=== PATIENT | female | born 1950 | race Caucasian/White ===

== ENCOUNTER 2016-06-23 11:19 | Emergency (ER) | payer MEDICARE, BC ==
[2016-06-23 12:05] VITALS: RESP 16
[2016-06-23] MEDS ORDERED: IPRATROPIUM-ALBUTEROL 3 ML NEB INHALATION STA (12:50)
--- NOTE | 2016-06-23 13:21 | XR ---
EXAMINATION TYPE: XR chest 2V DATE OF EXAM: 06/23/2016 1:01 PM COMPARISON: 09/21/2013 HISTORY: 65-year-old female with cough and pain TECHNIQUE: AP and lateral views FINDINGS: Heart is mild to moderately enlarged. The patient/ectasia of the thoracic aorta. Mild diffuse interstitial prominence is unchanged. Bilateral healed rib fracture deformities are pres ent. Some focal peripheral right upper and lower lung densities may relate to summation shadow should be reassessed at short interval follow-up. Postsurgical or posttraumatic shortening of the right clavicle. IMPRESSION: 1. Moderate cardiomegaly and chronic appearing changes. 2. Focal densities in the peripheral right upper and lower lung are suspected to relate to superimpos ition shadow. Correlate to exclude infectious infiltrates. Short interval follow-up should be conside red.
--- NOTE | 2016-06-23 13:33 | ED ---
URI HPI - General Chief Complaint: Upper Respiratory Infection Stated Complaint: congestion Time Seen by Provider: 06/23/16 12:43 Source: patient, family, RN notes reviewed Mode of arrival: wheelchair Limitations: no limitations - History of Present Illness Initial Comments: 65-year-old female presents emergency Department chief complaint cough and cold for 4-5 days. Patient states that she has productive cough at times. He states primary she has a clear runny nose. She states she try to call her binding cutter Dr. Lehman and though they had no available appointment. Patient denies fever, chills. Denies any chest pain. Patient states she has no nausea vomiting. She has had some minimal shortness breath with occasional. She states she has not had medication for her nebulizer. Patient states she has been coughing so hard now she has some rib pain area and - Related Data Home Medications Medication Instructions Recorded Confirmed Aspirin 81 mg PO DAILY 12/01/14 12/03/15 Atorvastatin Calcium [Lipitor] 20 mg PO HS 12/01/14 12/03/15 Cholecalciferol [Vitamin D3] 1,000 unit PO DAILY 12/01/14 12/03/15 Citracal 2 tab PO DAILY@0700 12/01/14 12/03/15 Gabapentin [Gabapentin] 200 mg PO HS 12/01/14 12/03/15 Hydrocodone/Acetaminophen 1 tab PO Q4H PRN 12/01/14 12/03/15 [Hydrocodon-Acetaminophn 10-325] Hydrocortisone [Cortef] 10 mg PO DAILY@1200 12/01/14 12/03/15 Lisinopril [Prinivil] 20 mg PO BID 12/01/14 12/03/15 Meclizine [Antivert] 25 mg PO TID PRN 12/01/14 12/03/15 Metoprolol Tartrate [Metoprolol 150 mg PO HS 12/01/14 12/03/15 Tartrate] Promethazine [Phenergan] 25 mg PO Q6HR PRN 12/01/14 12/03/15 Ascorbic Acid [Vitamin C] 500 mg PO DAILY 10/12/15 12/03/15 B Complex-Vit C-Vit E-Zinc [Z-Bec] 1 tab PO DAILY 10/12/15 12/03/15 Cyclobenzaprine [Flexeril] 10 mg PO TID PRN 10/12/15 12/03/15 Hydrocortisone [Cortef] 20 mg PO DAILY@0700 10/12/15 12/03/15 L.acidoph,Paracasei, B.lactis 2 cap PO DAILY 10/12/15 12/03/15 [Probiotic] Melatonin 3 mg PO HS PRN 10/12/15 12/03/15 Multivitamins, Thera [Multivitamin] 1 tab PO DAILY 10/12/15 12/03/15 Ondansetron [Zofran] 4 mg PO Q6H PRN 10/12/15 12/03/15 Potassium 99 mg PO DAILY 10/12/15 12/03/15 Glimepiride [Amaryl] 2 mg PO QAM 11/17/15 12/03/15 Hydrocortisone [Cortef] 5 mg PO DAILY@1800 11/17/15 12/03/15 amLODIPine [Norvasc] 5 mg PO DAILY 11/17/15 12/03/15 metFORMIN HCL 1,000 mg PO BID 11/17/15 12/03/15 Previous Rx's Medication Instructions Recorded Ciprofloxacin HCl [Cipro] 500 mg PO Q12HR #14 tablet 12/03/15 Albuterol Nebulized [Ventolin 2.5 mg INHALATION Q4H PRN #25 nebu 06/23/16 Nebulized] Levofloxacin [Levaquin] 500 mg PO DAILY #10 tab 06/23/16 Allergies Allergy/AdvReac Type Severity Reaction Status Date / Time butorphanol tartrate Allergy BLISTERS Verified 06/23/16 12:03 [From Stadol] IN MOUTH caffeine [From Cafergot] Allergy Unknown Verified 06/23/16 12:03 clarithromycin [From Biaxin] Allergy Rash/Hives Verified 06/23/16 12:03 codeine Allergy Rash/Hives Verified 06/23/16 12:03 ergotamine tartrate Allergy Unknown Verified 06/23/16 12:03 [From Cafergot] erythromycin base Allergy RASH, GI Verified 06/23/16 12:03 [From E-Mycin] SYMPTOMS ketorolac tromethamine Allergy Rash/Hives Verified 06/23/16 12:03 [From Toradol] monosodium glutamate [MSG] Allergy Nausea & Verified 06/23/16 12:03 Vomiting morphine Allergy Rash/Hives Verified 06/23/16 12:03 nalbuphine HCl [From Nubain] Allergy Nausea & Verified 06/23/16 12:03 Vomiting Penicillins Allergy Rash/Hives Verified 06/23/16 12:03 pentazocine lactate Allergy SEVERE Verified 06/23/16 12:03 [From Talwin] BLISTERS IN MOUTH pregabalin [From Lyrica] Allergy Rash/Hives Verified 06/23/16 12:03 propoxyphene HCl Allergy Rash/Hives Verified 06/23/16 12:03 [From Darvon] Sulfa (Sulfonamide Allergy Rash/Hives Verified 06/23/16 12:03 Antibiotics) Review of Systems ROS Statement: Those systems with pertinent positive or pertinent negative responses have been documented in the HPI. ROS Other: All systems not noted in ROS Statement are negative. Past Medical History Past Medical History: COPD, Diabetes Mellitus, Deep Vein Thrombosis (DVT), Fibromyalgia, Hyperlipidemia, Hypertension, Musculoskeletal Disorder, Osteoarthritis (OA), Sleep Apnea/CPAP/BIPAP Additional Past Medical History / Comment(s): DVT 1976; HX KIDNEY STONES; VARICOSE VEINS; USES CPAP; LT 5TH DIGIT BONE PROB; ADRENAL INSUFF, migraines History of Any Multi-Drug Resistant Organisms: MRSA Date of last positivie culture/infection: 2012 MDRO Source:: UNKNOWN Past Surgical History: Appendectomy, Back Surgery, Bladder Surgery, Cholecystectomy, Hysterectomy, Orthopedic Surgery, Tonsillectomy Additional Past Surgical History / Comment(s): EXC TUMOR RT ARM; OVARIAN CYST EXC; NADEEN TUBES, OVARIES REMOVED; 4TH RT TOE AMPUTATION; EXC NADEEN CATARACTS; KIDNEY STONE REMOVALS Past Anesthesia/Blood Transfusion Reactions: No Reported Reaction Past Psychological History: No Psychological Hx Reported Smoking Status: Never smoker Past Alcohol Use History: Occasional Past Drug Use History: None Reported - Past Family History Mother Family Medical History: No Reported History Additional Family Medical History / Comment(s): MAT GRANDMOTHER FROM BLOOD CLOT General Exam Limitations: no limitations General appearance: alert, in no apparent distress Head exam: Present: atraumatic, normocephalic, normal inspection Eye exam: Present: normal appearance, PERRL, EOMI. Absent: scleral icterus, conjunctival injection, periorbital swelling ENT exam: Present: normal exam, normal oropharynx, mucous membranes moist Neck exam: Present: normal inspection. Absent: tenderness, meningismus, lymphadenopathy Respiratory exam: Present: wheezes (Minimal), chest wall tenderness (Anterior lateral). Absent: normal lung sounds bilaterally, respiratory distress, rales, rhonchi, stridor, accessory muscle use, decreased breath sounds, prolonged expiratory Cardiovascular Exam: Present: regular rate, normal rhythm, normal heart sounds. Absent: systolic murmur, diastolic murmur, rubs, gallop, clicks GI/Abdominal exam: Present: soft, normal bowel sounds. Absent: distended, tenderness, guarding, rebound, rigid Course Vital Signs 06/23/16 06/23/16 06/23/16 12:03 13:08 13:13 Temperature 98.2 F Pulse Rate 61 92 92 Respiratory 16 Rate Blood Pressure 141/71 O2 Sat by Pulse 93 L Oximetry 06/23/16 13:20 Temperature Pulse Rate Respiratory 16 Rate Blood Pressure O2 Sat by Pulse Oximetry Medical Decision Making - Medical Decision Making 65-year-old female presented emergency for cough and cold like symptoms. Patient's chest x-ray shows possible pneumonia in the right side. Patient we treated with antibiotics, nebulizer treatments at home. Patient states she has a follow-up appointment with Dr. Cabrera on Monday. Return parameters were discussed. Vitals are stable. Disposition Clinical Impression: Pneumonia Disposition: HOME SELF-CARE Condition: Stable Instructions: Bacterial Pneumonia (ED) Additional Instructions: Please return to the Emergency Department if symptoms worsen or any other concerns. Prescriptions: Albuterol Nebulized [Ventolin Nebulized] 2.5 mg INHALATION Q4H PRN #25 nebu PRN Reason: difficulty in breathing Levofloxacin [Levaquin] 500 mg PO DAILY #10 tab Time of Disposition: 13:33
[2016-06-23 13:45] VITALS: BP 138/63; PULSE 69; TEMP 98.5
== END 2016-06-23 13:44 | disposition home or self-care (01) ==
LOC: EC 11:19
DX: J18.9 Pneumonia, unspecified organism (principal); E78.5 Hyperlipidemia, unspecified; E11.9 Type 2 diabetes mellitus without complications; M79.7 Fibromyalgia; G43.909 Migraine, unspecified, not intractable, without status migrainosus; I10 Essential (primary) hypertension; G47.30 Sleep apnea, unspecified; Z99.89 Dependence on other enabling machines and devices; Z86.718 Personal history of other venous thrombosis and embolism; Z87.442 Personal history of urinary calculi; Z79.82 Long term (current) use of aspirin; Z79.899 Other long term (current) drug therapy; Z79.84 Long term (current) use of oral hypoglycemic drugs; Z88.1 Allergy status to other antibiotic agents; Z88.5 Allergy status to narcotic agent; Z88.0 Allergy status to penicillin; Z88.2 Allergy status to sulfonamides; Z88.8 Allergy status to other drugs, medicaments and biological substances; Z79.52 Long term (current) use of systemic steroids
CPT/HCPCS: 71020; 94640; 99283

== ENCOUNTER → 2016-07-06 | Outpatient (CLI) | payer MEDICARE, BC ==
[2016-07-06 14:38] LABS: Basophils # (A) 0.1 k/uL (0-0.2); Basophils % (A) 0 %; CH 26.5; CHCM 31.3; Eosinophils # (A) 0.1 k/uL (0-0.7); Eosinophils % (A) 1 %; HCT 44.3 % (34.0-46.0); HDW 3.28; HGB 13.4 gm/dL (11.4-16.0); Hypochromasia Moderate; Luc # (Auto) 0.09; Luc % (Auto) 1; Lymphocytes % (A) 8 %; MCH 25.8 pg (25.0-35.0); MCHC 30.3 g/dL (31.0-37.0); MCV 85.2 fL (80.0-100.0); Mean Platelet Volume 7.9; Monocytes # (A) 0.4 k/uL (0-1.0); Monocytes % (A) 3 %; Neutrophils # (A) 11.8 k/uL (1.3-7.7); Neutrophils % (A) 88 %; RDW 15.6 % (11.5-15.5); WBC 13.3 k/uL (3.8-10.6); WBC (Perox) 13.45
[2016-07-06 15:07] LABS: ALT 30 U/L (9-52); AST 22 U/L (14-36); Alkaline Phosphatase 65 U/L (38-126); Anion Gap 15 mmol/L; Blood Urea Nitrogen 26 mg/dL (7-17); Calcium 11.1 mg/dL (8.4-10.2); Carbon Dioxide 27 mmol/L (22-30); Chloride 102 mmol/L (98-107); Creatine Kinase 33 U/L (30-135); Glucose 182 mg/dL (74-99); Non-African American GFR(MDRD) >60 (>60 ml/min/1.73 sqM); Potassium 4.6 mmol/L (3.5-5.1); Sodium 144 mmol/L (137-145); Total Bilirubin 1.1 mg/dL (0.2-1.3); Total Protein 6.3 g/dL (6.3-8.2)
== END | disposition home or self-care (01) ==
LOC: LABWHC1 13:39
PROVIDERS: ATTEND Internal Medicine Critical Care Medicine
DX: J44.1 Chronic obstructive pulmonary disease with (acute) exacerbation (principal)
CPT/HCPCS: 36415; 80053; 82550; 85025; 99213

== ENCOUNTER → 2016-07-18 | Outpatient (CLI) | payer MEDICARE, BC ==
[2016-07-18 14:51] LABS: Anisocytosis Slight; Basophils % (A) 0 %; CH 26.9; CHCM 31.7; Eosinophils # (A) 0.1 k/uL (0-0.7); Eosinophils % (A) 1 %; HCT 43.9 % (34.0-46.0); HDW 3.21; HGB 13.6 gm/dL (11.4-16.0); Hypochromasia Slight; Luc # (Auto) 0.19; Luc % (Auto) 2; Lymphocytes # (A) 1.6 k/uL (1.0-4.8); Lymphocytes % (A) 14 %; MCH 26.2 pg (25.0-35.0); MCHC 30.9 g/dL (31.0-37.0); MCV 84.9 fL (80.0-100.0); Mean Platelet Volume 7.1; Monocytes # (A) 0.6 k/uL (0-1.0); Monocytes % (A) 6 %; Neutrophils # (A) 8.4 k/uL (1.3-7.7); Neutrophils % (A) 77 %; RBC 5.17 m/uL (3.80-5.40); RDW 16.1 % (11.5-15.5); WBC 10.9 k/uL (3.8-10.6); WBC (Perox) 11.31
[2016-07-18 14:57] LABS: ALT 39 U/L (9-52); AST 25 U/L (14-36); Alkaline Phosphatase 54 U/L (38-126); Anion Gap 11 mmol/L; Blood Urea Nitrogen 24 mg/dL (7-17); Calcium 11.2 mg/dL (8.4-10.2); Carbon Dioxide 31 mmol/L (22-30); Chloride 102 mmol/L (98-107); Glucose 71 mg/dL (74-99); Non-African American GFR(MDRD) >60 (>60 ml/min/1.73 sqM); Potassium 4.5 mmol/L (3.5-5.1); Sodium 144 mmol/L (137-145); Total Bilirubin 1.6 mg/dL (0.2-1.3); Total Protein 6.8 g/dL (6.3-8.2)
== END | disposition home or self-care (01) ==
LOC: LABWHC1 14:10
PROVIDERS: ATTEND Internal Medicine Critical Care Medicine
DX: J44.9 Chronic obstructive pulmonary disease, unspecified (principal); E83.52 Hypercalcemia
CPT/HCPCS: 36415; 80053; 83970; 85025

== ENCOUNTER 2016-08-03 21:03 | Emergency (ER) | payer MEDICARE, BC ==
[2016-08-03 21:28] VITALS: TEMP 98.7
[2016-08-03] MEDS ORDERED: ONDANSETRON 4 MG/2 ML VIAL IVP STA (23:46)
[2016-08-03] MEDS ORDERED: HYDROmorphone 1 MG/ML 1 ML SYRINGE IVP STA (23:46)
[2016-08-03] MEDS ORDERED: SODIUM CHLORIDE 0.9% 1,000 ML IV STA (23:46)
[2016-08-03] MEDS ORDERED: TAMSULOSIN 0.4 MG CAP.ER.24H PO STA (23:47)
--- NOTE | 2016-08-03 23:48 | ED ---
Abdominal Pain HPI - General Chief Complaint: Abdominal Pain Stated Complaint: Groin and Flank pain Time Seen by Provider: 08/03/16 23:40 Source: patient, family, RN notes reviewed Mode of arrival: wheelchair Limitations: no limitations - History of Present Illness Initial Comments: 65-year-old female presents emergency Department chief complaint of concern she may have a kidney stone. Patient states that she has long history of kidney stones. Patient states that she developed this right-sided groin pain that radiates into the back. Patient states it feels much like her typical kidney stone pain. Patient states it's been on and off for the last 2 days but tonight just seemed to get worse so she thought that she should be evaluated. Patient states she hasn't noticed any fever or chills. He denies any changes in urination with this. Patient states that she was concerned due to the continued pain so she thought that she should be evaluated. Patient states that she is not currently having any other symptoms at this time.Patient denies any recent fever, chills, shortness of breath, chest pain, vomiting, numbness or tingling, dysuria or hematuria, constipation or diarrhea, headaches or visual changes, or any other current symptoms. - Related Data Home Medications Medication Instructions Recorded Confirmed Aspirin 81 mg PO DAILY 12/01/14 08/03/16 Atorvastatin Calcium [Lipitor] 20 mg PO HS 12/01/14 08/03/16 Cholecalciferol [Vitamin D3] 1,000 unit PO DAILY 12/01/14 08/03/16 Gabapentin [Gabapentin] 200 mg PO HS 12/01/14 08/03/16 Hydrocodone/Acetaminophen 1 tab PO Q4H PRN 12/01/14 08/03/16 [Hydrocodon-Acetaminophn 10-325] Hydrocortisone [Cortef] 10 mg PO DAILY@1200 12/01/14 08/03/16 Lisinopril [Prinivil] 20 mg PO BID 12/01/14 08/03/16 Meclizine [Antivert] 25 mg PO TID PRN 12/01/14 08/03/16 Metoprolol Tartrate [Metoprolol 150 mg PO HS 12/01/14 08/03/16 Tartrate] Promethazine [Phenergan] 25 mg PO Q6HR PRN 12/01/14 08/03/16 Ascorbic Acid [Vitamin C] 500 mg PO DAILY 10/12/15 08/03/16 B Complex-Vit C-Vit E-Zinc [Z-Bec] 1 tab PO DAILY 10/12/15 08/03/16 Cyclobenzaprine [Flexeril] 10 mg PO TID PRN 10/12/15 08/03/16 Hydrocortisone [Cortef] 20 mg PO DAILY@0700 10/12/15 08/03/16 L.acidoph,Paracasei, B.lactis 2 cap PO DAILY 10/12/15 08/03/16 [Probiotic] Melatonin 3 mg PO HS PRN 10/12/15 08/03/16 Multivitamins, Thera [Multivitamin] 1 tab PO DAILY 10/12/15 08/03/16 Ondansetron [Zofran] 4 mg PO Q6H PRN 10/12/15 08/03/16 Potassium 99 mg PO DAILY 10/12/15 08/03/16 Glimepiride [Amaryl] 2 mg PO QAM 11/17/15 08/03/16 Hydrocortisone [Cortef] 5 mg PO DAILY@1800 11/17/15 08/03/16 amLODIPine [Norvasc] 5 mg PO DAILY 11/17/15 08/03/16 metFORMIN HCL 1,000 mg PO BID 11/17/15 08/03/16 Ca Carbonate/Vitamin D3/Vit K 2 tab PO DAILY 06/23/16 08/03/16 [Citracal Soft Chew] Insulin Detemir [Levemir Flextouch] 14 units SQ HS 06/23/16 08/03/16 Previous Rx's Medication Instructions Recorded Ciprofloxacin HCl [Cipro] 500 mg PO Q12HR #14 tablet 12/03/15 Albuterol Nebulized [Ventolin 2.5 mg INHALATION Q4H PRN #25 nebu 06/23/16 Nebulized] Levofloxacin [Levaquin] 500 mg PO DAILY #10 tab 06/23/16 Ciprofloxacin HCl [Cipro] 500 mg PO Q12HR #14 tablet 08/04/16 Allergies Allergy/AdvReac Type Severity Reaction Status Date / Time butorphanol tartrate Allergy BLISTERS Verified 08/03/16 21:29 [From Stadol] IN MOUTH caffeine [From Cafergot] Allergy Unknown Verified 08/03/16 21:29 clarithromycin [From Biaxin] Allergy Rash/Hives Verified 08/03/16 21:29 codeine Allergy Rash/Hives Verified 08/03/16 21:29 ergotamine tartrate Allergy Unknown Verified 08/03/16 21:29 [From Cafergot] erythromycin base Allergy RASH, GI Verified 08/03/16 21:29 [From E-Mycin] SYMPTOMS ketorolac tromethamine Allergy Rash/Hives Verified 08/03/16 21:29 [From Toradol] monosodium glutamate [MSG] Allergy Nausea & Verified 08/03/16 21:29 Vomiting morphine Allergy Rash/Hives Verified 08/03/16 21:29 nalbuphine HCl [From Nubain] Allergy Nausea & Verified 08/03/16 21:29 Vomiting Penicillins Allergy Rash/Hives Verified 08/03/16 21:29 pentazocine lactate Allergy SEVERE Verified 08/03/16 21:29 [From Talwin] BLISTERS IN MOUTH pregabalin [From Lyrica] Allergy Rash/Hives Verified 08/03/16 21:29 propoxyphene HCl Allergy Rash/Hives Verified 08/03/16 21:29 [From Darvon] Sulfa (Sulfonamide Allergy Rash/Hives Verified 08/03/16 21:29 Antibiotics) Review of Systems ROS Statement: Those systems with pertinent positive or pertinent negative responses have been documented in the HPI. ROS Other: All systems not noted in ROS Statement are negative. Past Medical History Past Medical History: COPD, Diabetes Mellitus, Deep Vein Thrombosis (DVT), Fibromyalgia, Hyperlipidemia, Hypertension, Musculoskeletal Disorder, Osteoarthritis (OA), Sleep Apnea/CPAP/BIPAP Additional Past Medical History / Comment(s): DVT 1976; HX KIDNEY STONES; VARICOSE VEINS; USES CPAP; LT 5TH DIGIT BONE PROB; ADRENAL INSUFF, migraines History of Any Multi-Drug Resistant Organisms: MRSA Date of last positivie culture/infection: 2012 MDRO Source:: UNKNOWN Past Surgical History: Appendectomy, Back Surgery, Bladder Surgery, Cholecystectomy, Hysterectomy, Orthopedic Surgery, Tonsillectomy Additional Past Surgical History / Comment(s): EXC TUMOR RT ARM; OVARIAN CYST EXC; NADEEN TUBES, OVARIES REMOVED; 4TH RT TOE AMPUTATION; EXC NADEEN CATARACTS; KIDNEY STONE REMOVALS Past Anesthesia/Blood Transfusion Reactions: No Reported Reaction Past Psychological History: No Psychological Hx Reported Smoking Status: Never smoker Past Alcohol Use History: Occasional Past Drug Use History: None Reported - Past Family History Mother Family Medical History: No Reported History Additional Family Medical History / Comment(s): MAT GRANDMOTHER FROM BLOOD CLOT General Exam - General Exam Comments Initial Comments: General: The patient is awake and alert, in no distress, and does not appear acutely ill. Eye: Pupils are equal, round and reactive to light, extra-ocular movements are intact; there is normal conjunctiva bilaterally. No signs of icterus. Ears, nose, mouth and throat: There are moist mucous membranes and no oral lesions. Neck: The neck is supple, there is no tenderness. Cardiovascular: There is a regular rate and rhythm. No murmur, rub or gallop is appreciated. Respiratory: Lungs are clear to auscultation, respirations are non-labored, breath sounds are equal. No wheezes, stridor, rales, or rhonchi. Gastrointestinal: Soft, non-distended, non-tender abdomen without masses or organomegaly noted. There is no rebound or guarding present. No CVA tenderness. Bowel sounds are unremarkable. Back: There is no tenderness to palpation in the midline. There is no obvious deformity. No rashes noted. Musculoskeletal: Normal ROM, no tenderness, There is no pedal edema. There is no calf tenderness or swelling. Sensation intact. Pulses equal bilaterally 2+. Neurological: CN II-XII intact, There are no obvious motor or sensory deficits. Coordination appears grossly intact. Speech is normal. Skin: Skin is warm and dry and no rashes or lesions are noted. Psychiatric: Cooperative, appropriate mood & affect, normal judgment. Limitations: no limitations Course Vital Signs 08/03/16 21:27 Temperature 98.7 F Pulse Rate 83 Respiratory 20 Rate Blood Pressure 157/77 O2 Sat by Pulse 97 Oximetry Medical Decision Making - Medical Decision Making 65-year-old male presents to the emergency department with a chief complaint of right flank pain. Patient's CAT scan is reviewed and the results were discussed the patient. This time appears to be mild colitis along with UTI with the blood work. Those results are also discussed. This time we will start patient on Cipro. We did discuss follow-up with her doctor return parameters. Patient states she is tender at this time and all her questions have been answered. She'll be discharged. - Lab Data Result diagrams: 08/03/16 00:00 08/03/16 00:00 Lab Results 08/03/16 08/03/16 08/03/16 Range/Units 00:00 00:00 23:47 WBC 13.0 H (3.8-10.6) k/uL RBC 5.22 (3.80-5.40) m/uL Hgb 14.0 (11.4-16.0) gm/dL Hct 43.9 (34.0-46.0) % MCV 84.1 (80.0-100.0) fL MCH 26.8 (25.0-35.0) pg MCHC 31.9 (31.0-37.0) g/dL RDW 16.5 H (11.5-15.5) % Plt Count 245 (150-450) k/uL Neutrophils % 77 % Lymphocytes % 16 % Monocytes % 5 % Eosinophils % 1 % Basophils % 0 % Neutrophils # 10.0 H (1.3-7.7) k/uL Lymphocytes # 2.1 (1.0-4.8) k/uL Monocytes # 0.7 (0-1.0) k/uL Eosinophils # 0.1 (0-0.7) k/uL Basophils # 0.1 (0-0.2) k/uL Hypochromasia Slight Anisocytosis Slight Sodium 141 (137-145) mmol/L Potassium 3.9 (3.5-5.1) mmol/L Chloride 96 L (98-107) mmol/L Carbon Dioxide 31 H (22-30) mmol/L Anion Gap 14 mmol/L BUN 28 H (7-17) mg/dL Creatinine 0.77 (0.52-1.04) mg/dL Est GFR (MDRD) Af Amer >60 (>60 ml/min/1.73 sqM) Est GFR (MDRD) Non-Af >60 (>60 ml/min/1.73 sqM) Glucose 242 H (74-99) mg/dL Calcium 11.1 H (8.4-10.2) mg/dL Total Bilirubin 1.0 (0.2-1.3) mg/dL AST 27 (14-36) U/L ALT 43 (9-52) U/L Alkaline Phosphatase 69 (38-126) U/L Total Protein 6.9 (6.3-8.2) g/dL Albumin 4.3 (3.5-5.0) g/dL Urine Color Yellow Urine Appearance Cloudy H (Clear) Urine pH 6.0 (5.0-8.0) Ur Specific [place] 1.024 (1.001-1.035) Urine Protein 1+ H (Negative) Urine Glucose (UA) 4+ H (Negative) Urine Ketones 1+ H (Negative) Urine Blood Negative (Negative) Urine Nitrate Negative (Negative) Urine Bilirubin Negative (Negative) Urine Urobilinogen <2.0 (<2.0) mg/dL Ur Leukocyte Esterase Moderate H (Negative) Urine RBC 9 H (0-5) /hpf Urine WBC 26 H (0-5) /hpf Ur Squamous Epith Cells <1 (0-4) /hpf Urine Mucus Rare H (None) /hpf - Radiology Data Radiology results: report reviewed, image reviewed Disposition Clinical Impression: Colitis, UTI (urinary tract infection) Disposition: HOME SELF-CARE Condition: Stable Instructions: Urinary Tract Infection in Women (ED) Additional Instructions: Please use medication as discussed. Please follow up with family doctor if symptoms have not improved over the next two days. Please return to the emergency room if your symptoms increase or worsen or for any other concerns. Prescriptions: Ciprofloxacin HCl [Cipro] 500 mg PO Q12HR #14 tablet Referrals: David Mccartney MD [Primary Care Provider] - 1-2 days Time of Disposition: 01:46
[2016-08-04 00:01] LABS: Appearance,Urine Cloudy (Clear); Bilirubin,Urine Negative (Negative); Glucose,Urine (UA) 4+ (Negative); Ketones,Urine 1+ (Negative); Leukocyte Esterase,Urine Moderate (Negative); Mucus,Urine Rare /hpf; Nitrite,Urine Negative (Negative); Particle Count 4702; Protein,Urine 1+ (Negative); RBC,Urine 9 /hpf (0-5); Specific Gravity,Urine 1.024 (1.001-1.035); Squamous Epithelial Cell,Urine <1 /hpf (0-4); UA Billing (MACRO vs. MICRO) MICRO; Urobilinogen,Urine <2.0 mg/dL (<2.0); WBC,Urine 26 /hpf (0-5)
[2016-08-04 00:06] LABS: Anisocytosis Slight; Basophils # (A) 0.1 k/uL (0-0.2); Basophils % (A) 0 %; CH 27.3; CHCM 32.5; Eosinophils # (A) 0.1 k/uL (0-0.7); Eosinophils % (A) 1 %; HCT 43.9 % (34.0-46.0); HDW 3.24; Hypochromasia Slight; Luc % (Auto) 2; Lymphocytes # (A) 2.1 k/uL (1.0-4.8); Lymphocytes % (A) 16 %; MCH 26.8 pg (25.0-35.0); MCHC 31.9 g/dL (31.0-37.0); MCV 84.1 fL (80.0-100.0); Mean Platelet Volume 7.6; Monocytes # (A) 0.7 k/uL (0-1.0); Monocytes % (A) 5 %; Neutrophils % (A) 77 %; RBC 5.22 m/uL (3.80-5.40); RDW 16.5 % (11.5-15.5); WBC (Perox) 12.97
[2016-08-04 00:18] LABS: ALT 43 U/L (9-52); AST 27 U/L (14-36); Alkaline Phosphatase 69 U/L (38-126); Anion Gap 14 mmol/L; Blood Urea Nitrogen 28 mg/dL (7-17); Calcium 11.1 mg/dL (8.4-10.2); Carbon Dioxide 31 mmol/L (22-30); Chloride 96 mmol/L (98-107); Glucose 242 mg/dL (74-99); Non-African American GFR(MDRD) >60 (>60 ml/min/1.73 sqM); Potassium 3.9 mmol/L (3.5-5.1); Sodium 141 mmol/L (137-145); Total Protein 6.9 g/dL (6.3-8.2)
--- NOTE | 2016-08-04 01:42 | CT ---
EXAMINATION TYPE: CT abdomen pelvis wo con DATE OF EXAM: 08/04/2016 12:50 AM COMPARISON: 11/17/2015 HISTORY: right flank and groin pain, renal stone protocol CT DLP: 578.50 mGycm Automated exposure control for dose reduction was used. TECHNIQUE: Helical acquisition of images was performed from the lung bases through the pelvis. FINDINGS: LUNG BASES: Mild atelectasis and scarring is noted in both lung bases. LIVER/GB: No significant abnormality is appreciated in the liver. Cholecystectomy changes are present . Surgical clip is noted in the outer aspect of liver. PANCREAS: Calcification is noted in the pancreas probably vascular calcification. No significant acut e inflammation is noted in the pancreas. SPLEEN: No significant abnormality is seen. ADRENALS: No significant abnormality is seen. KIDNEYS: Lobulated contour is noted in the right kidney probably related to chronic lobation or chronic inflammatory process. No definite hydronephrosis or obstructing stones are noted in the righ t kidney and right ureter. Left kidney showed small 2 to 4 mm nonobstructing opaque stones. No significant hydronephrosis or obs tructing stones are noted in the left kidney and left ureter. There is evidence of benign-appearing cysts in the outer cortex of left kidney measuring 2.4 cm. There are multiple small calcified densities in the pelvis and are most likely related to phleboliths and vascular calcifications and are less likely to represent ureter stones. RETROPERITONEAL ADENOPATHY: None visualized REPRODUCTIVE ORGANS: Probable hysterectomy changes are noted. URINARY BLADDER: No significant abnormality is seen. PELVIC ADENOPATHY: None visualized. OSSEOUS STRUCTURES: Postsurgical changes are noted in the lower cervical spine with metallic hardwar e in place without significant change. BOWEL: Mild to moderate colonic diverticulosis is noted. There is possibility of mild colitis change s on the left side in the descending colon in the axial image 59. OTHER: IMPRESSION: 1. POSSIBLE MILD COLITIS INVOLVING DESCENDING COLON. 2. POSSIBLE CHRONIC INFLAMMATION OF RIGHT KIDNEY. NO DEFINITE OBSTRUCTING OPAQUE STONES OR HYDRONEPHR OSIS IS NOTED ON THE RIGHT SIDE. 3. NO HYDRONEPHROSIS OR OBSTRUCTING STONES ARE NOTED IN THE LEFT KIDNEY. THERE ARE MULTIPLE NONOBSTRU CTING STONES AND BENIGN-APPEARING CYST IN THE LEFT KIDNEY. 4. CHOLECYSTECTOMY. 5. POST SURGICAL CHANGES IN THE LUMBOSACRAL SPINE. 6. ATELECTATIC CHANGES AND SCARRING IN THE RIGHT LUNG BASE.
[2016-08-04] MEDS ORDERED: HYDROmorphone 1 MG/ML 1 ML SYRINGE IVP STA (01:45)
[2016-08-04 01:55] VITALS: BP 154/80; PULSE 78; RESP 16
== END 2016-08-04 02:06 | disposition home or self-care (01) ==
LOC: EC 21:03
DX: K52.9 Noninfective gastroenteritis and colitis, unspecified (principal); N39.0 Urinary tract infection, site not specified; E78.5 Hyperlipidemia, unspecified; M19.90 Unspecified osteoarthritis, unspecified site; I10 Essential (primary) hypertension; M79.7 Fibromyalgia; J44.9 Chronic obstructive pulmonary disease, unspecified; E11.9 Type 2 diabetes mellitus without complications; Z79.4 Long term (current) use of insulin; Z79.51 Long term (current) use of inhaled steroids; Z79.82 Long term (current) use of aspirin; Z79.899 Other long term (current) drug therapy; Z88.0 Allergy status to penicillin; Z88.1 Allergy status to other antibiotic agents; Z88.2 Allergy status to sulfonamides; Z88.5 Allergy status to narcotic agent; Z88.6 Allergy status to analgesic agent; Z88.8 Allergy status to other drugs, medicaments and biological substances; Z87.442 Personal history of urinary calculi; Z87.39 Personal history of other diseases of the musculoskeletal system and connective tissue; Z86.718 Personal history of other venous thrombosis and embolism; Z90.49 Acquired absence of other specified parts of digestive tract; Z90.710 Acquired absence of both cervix and uterus; Z90.722 Acquired absence of ovaries, bilateral; Z98.890 Other specified postprocedural states
CPT/HCPCS: 99284; 96365; 96375 ×2; 96376; 36415; 80053; 85025; 81001; 87086; 74176; J2405; J0696; J1170

== ENCOUNTER → 2016-08-16 | Outpatient (CLI) | payer MEDICARE, BC ==
[2016-08-16 09:46] LABS: Anisocytosis Slight; Basophils # (A) 0.1 k/uL (0-0.2); Basophils % (A) 1 %; CH 27.6; Eosinophils # (A) 0.2 k/uL (0-0.7); Eosinophils % (A) 2 %; HCT 41.8 % (34.0-46.0); HDW 3.25; HGB 12.9 gm/dL (11.4-16.0); Hypochromasia Slight; Luc # (Auto) 0.15; Luc % (Auto) 2; Lymphocytes # (A) 1.8 k/uL (1.0-4.8); Lymphocytes % (A) 20 %; MCH 26.8 pg (25.0-35.0); MCHC 30.9 g/dL (31.0-37.0); MCV 86.7 fL (80.0-100.0); Mean Platelet Volume 7.6; Monocytes # (A) 0.5 k/uL (0-1.0); Monocytes % (A) 5 %; Neutrophils # (A) 6.4 k/uL (1.3-7.7); Neutrophils % (A) 71 %; RBC 4.83 m/uL (3.80-5.40); RDW 16.9 % (11.5-15.5); WBC (Perox) 9.46
[2016-08-16 10:06] LABS: ALT 27 U/L (9-52); AST 23 U/L (14-36); Alkaline Phosphatase 47 U/L (38-126); Anion Gap 10 mmol/L; Blood Urea Nitrogen 20 mg/dL (7-17); Carbon Dioxide 34 mmol/L (22-30); Chloride 100 mmol/L (98-107); Cholesterol 181 mg/dL (<200); Glucose 65 mg/dL (74-99); HDL Cholesterol 63 mg/dL (40-60); Non-African American GFR(MDRD) >60 (>60 ml/min/1.73 sqM); Sodium 144 mmol/L (137-145); Total Bilirubin 1.2 mg/dL (0.2-1.3); Total Protein 6.8 g/dL (6.3-8.2); Triglycerides 190 mg/dL (<150)
[2016-08-16 10:52] LABS: Hepatitis C Virus IgG Index 0.01
[2016-08-16 10:57] LABS: Hepatitis C Virus IgG Ab Negative (Negative)
[2016-08-16 13:05] LABS: Hemoglobin A1C 7.4 % (4.2-6.1)
== END | disposition home or self-care (01) ==
LOC: LABPAT 09:06
PROVIDERS: ATTEND Family Medicine
DX: E11.65 Type 2 diabetes mellitus with hyperglycemia (principal)
CPT/HCPCS: 80053; 80061; 81001; 82043; 83036; 84443; 85025; 86803; 87086

== ENCOUNTER 2016-09-29 19:36 | Emergency (ER) | payer MEDICARE, BC ==
[2016-09-29 19:42] VITALS: RESP 18
[2016-09-29] MEDS ORDERED: KETOROLAC 30 MG/ML 1 ML VIAL IVP STA (20:00)
[2016-09-29] MEDS ORDERED: SODIUM CHLORIDE 0.9% 1,000 ML IV ONE (20:00)
[2016-09-29] MEDS ORDERED: diphenhydrAMINE 50 MG/ML 1 ML VIAL IM STA (20:01)
[2016-09-29] MEDS ORDERED: METOCLOPRAMIDE 5 MG/ML 2 ML VIAL IVP STA (20:01)
[2016-09-29] MEDS ORDERED: CIPROFLOXACIN 0.3% OPHTH SOLN 2.5 ML BTL RIGHT EYE STA (20:03)
[2016-09-29] MEDS ORDERED: diphenhydrAMINE 50 MG/ML 1 ML VIAL IVP STA (20:05)
[2016-09-29] MEDS ORDERED: ACETAMINOPHEN TAB 500 MG TAB PO STA (20:05)
[2016-09-29] MEDS ORDERED: HYDROmorphone 1 MG/ML 1 ML SYRINGE IVP STA ×2 (20:27→22:05)
[2016-09-29] MEDS ORDERED: ONDANSETRON 4 MG/2 ML VIAL IVP STA (20:27)
[2016-09-29 20:36] LABS: Appearance,Urine Clear (Clear); Bacteria,Urine Few /hpf; Bilirubin,Urine Negative (Negative); Glucose,Urine (UA) Trace (Negative); Ketones,Urine Negative (Negative); Leukocyte Esterase,Urine Moderate (Negative); Mucus,Urine Rare /hpf; Nitrite,Urine Negative (Negative); Particle Count 3500; Protein,Urine 1+ (Negative); RBC,Urine 6 /hpf (0-5); Specific Gravity,Urine 1.026 (1.001-1.035); Squamous Epithelial Cell,Urine <1 /hpf (0-4); UA Billing (MACRO vs. MICRO) MICRO; Urobilinogen,Urine <2.0 mg/dL (<2.0); WBC,Urine 19 /hpf (0-5)
[2016-09-29 20:37] LABS: Anisocytosis Slight; Basophils % (A) 0 %; CH 28.3; CHCM 33.1; Eosinophils # (A) 0.1 k/uL (0-0.7); Eosinophils % (A) 1 %; HDW 3.58; HGB 14.9 gm/dL (11.4-16.0); Luc # (Auto) 0.23; Luc % (Auto) 3; Lymphocytes % (A) 22 %; MCH 28.4 pg (25.0-35.0); MCHC 33.1 g/dL (31.0-37.0); MCV 85.7 fL (80.0-100.0); Mean Platelet Volume 6.8; Monocytes # (A) 0.5 k/uL (0-1.0); Monocytes % (A) 6 %; Neutrophils # (A) 6.2 k/uL (1.3-7.7); Neutrophils % (A) 69 %; Poikilocytosis Slight; RBC 5.25 m/uL (3.80-5.40); RDW 16.3 % (11.5-15.5); WBC 9.1 k/uL (3.8-10.6); WBC (Perox) 9.47
--- NOTE | 2016-09-29 20:42 | ED ---
Female Urogenital HPI - General Chief complaint: Urogenital Stated complaint: Weakness/Eye Problem Time Seen by Provider: 09/29/16 19:50 Source: patient, family, RN notes reviewed Mode of arrival: ambulatory Limitations: no limitations - History of Present Illness Initial comments: Patient is a 66-year-old female with multiple chief complaints. She reports that she's noticed she's had some dysuria right-sided flank pain for approximately a few days. She states that she's had no fever but felt chilled. She also reports that over the past day she's had a headache behind her right eye did notice some significant drainage of her right eye today. She reports that she thought that there is some blood coming from her eye. She denies any changes in vision or any other associated symptoms with her eye. She reports that she also just feeling generally weak and tired lately. Patient reports that her headache is currently a 7 out of 10. She has not taken anything besides her prescription medications. - Related Data Home Medications Medication Instructions Recorded Confirmed Aspirin 81 mg PO DAILY 12/01/14 09/29/16 Atorvastatin Calcium [Lipitor] 20 mg PO HS 12/01/14 09/29/16 Cholecalciferol [Vitamin D3] 1,000 unit PO DAILY 12/01/14 09/29/16 Gabapentin [Gabapentin] 200 mg PO HS 12/01/14 09/29/16 Hydrocodone/Acetaminophen 1 tab PO Q4H PRN 12/01/14 09/29/16 [Hydrocodon-Acetaminophn 10-325] Lisinopril [Prinivil] 20 mg PO BID 12/01/14 09/29/16 Meclizine [Antivert] 25 mg PO TID PRN 12/01/14 09/29/16 Metoprolol Tartrate [Metoprolol 150 mg PO HS 12/01/14 09/29/16 Tartrate] Promethazine [Phenergan] 25 mg PO Q6HR PRN 12/01/14 09/29/16 Ascorbic Acid [Vitamin C] 500 mg PO DAILY 10/12/15 09/29/16 B Complex-Vit C-Vit E-Zinc [Z-Bec] 1 tab PO DAILY 10/12/15 09/29/16 Cyclobenzaprine [Flexeril] 10 mg PO TID PRN 10/12/15 09/29/16 Hydrocortisone [Cortef] 30 mg PO BID 10/12/15 09/29/16 L.acidoph,Paracasei, B.lactis 2 cap PO DAILY 10/12/15 09/29/16 [Probiotic] Melatonin 3 mg PO HS PRN 10/12/15 09/29/16 Multivitamins, Thera [Multivitamin] 1 tab PO DAILY 10/12/15 09/29/16 Ondansetron [Zofran] 4 mg PO Q6H PRN 10/12/15 09/29/16 Potassium 99 mg PO DAILY 10/12/15 09/29/16 Glimepiride [Amaryl] 2 mg PO QAM 11/17/15 09/29/16 amLODIPine [Norvasc] 5 mg PO DAILY 11/17/15 09/29/16 metFORMIN HCL 1,000 mg PO BID 11/17/15 09/29/16 Ca Carbonate/Vitamin D3/Vit K 2 tab PO DAILY 06/23/16 09/29/16 [Citracal Soft Chew] Insulin Detemir [Levemir Flextouch] 14 units SQ HS 06/23/16 09/29/16 Previous Rx's Medication Instructions Recorded Albuterol Nebulized [Ventolin 2.5 mg INHALATION Q4H PRN #25 nebu 06/23/16 Nebulized] Ciprofloxacin HCl [Cipro] 500 mg PO Q12HR #14 tablet 09/29/16 Allergies Allergy/AdvReac Type Severity Reaction Status Date / Time butorphanol tartrate Allergy BLISTERS Verified 09/29/16 19:56 [From Stadol] IN MOUTH caffeine [From Cafergot] Allergy Unknown Verified 09/29/16 19:56 clarithromycin [From Biaxin] Allergy Rash/Hives Verified 09/29/16 19:56 codeine Allergy Rash/Hives Verified 09/29/16 19:56 ergotamine tartrate Allergy Unknown Verified 09/29/16 19:56 [From Cafergot] erythromycin base Allergy RASH, GI Verified 09/29/16 19:56 [From E-Mycin] SYMPTOMS ketorolac tromethamine Allergy Rash/Hives Verified 09/29/16 19:56 [From Toradol] monosodium glutamate [MSG] Allergy Nausea & Verified 09/29/16 19:56 Vomiting morphine Allergy Rash/Hives Verified 09/29/16 19:56 nalbuphine HCl [From Nubain] Allergy Nausea & Verified 09/29/16 19:56 Vomiting Penicillins Allergy Rash/Hives Verified 09/29/16 19:56 pentazocine lactate Allergy SEVERE Verified 09/29/16 19:56 [From Talwin] BLISTERS IN MOUTH pregabalin [From Lyrica] Allergy Rash/Hives Verified 09/29/16 19:56 propoxyphene HCl Allergy Rash/Hives Verified 09/29/16 19:56 [From Darvon] Sulfa (Sulfonamide Allergy Rash/Hives Verified 09/29/16 19:56 Antibiotics) Review of Systems ROS Statement: Those systems with pertinent positive or pertinent negative responses have been documented in the HPI. ROS Other: All systems not noted in ROS Statement are negative. Past Medical History Past Medical History: COPD, Diabetes Mellitus, Deep Vein Thrombosis (DVT), Fibromyalgia, Hyperlipidemia, Hypertension, Musculoskeletal Disorder, Osteoarthritis (OA), Sleep Apnea/CPAP/BIPAP Additional Past Medical History / Comment(s): DVT 1976; HX KIDNEY STONES; VARICOSE VEINS; USES CPAP; LT 5TH DIGIT BONE PROB; ADRENAL INSUFF, migraines History of Any Multi-Drug Resistant Organisms: MRSA Date of last positivie culture/infection: 2012 MDRO Source:: UNKNOWN Past Surgical History: Appendectomy, Back Surgery, Bladder Surgery, Cholecystectomy, Hysterectomy, Orthopedic Surgery, Tonsillectomy Additional Past Surgical History / Comment(s): EXC TUMOR RT ARM; OVARIAN CYST EXC; NADEEN TUBES, OVARIES REMOVED; 4TH RT TOE AMPUTATION; EXC NADEEN CATARACTS; KIDNEY STONE REMOVALS Past Anesthesia/Blood Transfusion Reactions: No Reported Reaction Past Psychological History: No Psychological Hx Reported Smoking Status: Never smoker Past Alcohol Use History: Occasional Past Drug Use History: None Reported - Past Family History Mother Family Medical History: No Reported History Additional Family Medical History / Comment(s): MAT GRANDMOTHER FROM BLOOD CLOT General Exam - General Exam Comments Initial Comments: Pleasant 66 year old female, no distress. Limitations: no limitations General appearance: alert, in no apparent distress Head exam: Present: atraumatic, normocephalic, normal inspection Eye exam: Present: normal appearance, PERRL, EOMI, conjunctival injection ( inferior palpebral conjunctival injection on right lower eye. ). Absent: scleral icterus, periorbital swelling ENT exam: Present: normal exam, normal oropharynx, mucous membranes moist Neck exam: Present: normal inspection. Absent: tenderness, meningismus, lymphadenopathy Respiratory exam: Present: normal lung sounds bilaterally. Absent: respiratory distress, wheezes, rales, rhonchi, stridor Cardiovascular Exam: Present: regular rate, normal rhythm, normal heart sounds. Absent: systolic murmur, diastolic murmur, rubs, gallop, clicks GI/Abdominal exam: Present: soft, normal bowel sounds. Absent: distended, tenderness, guarding, rebound, rigid Extremities exam: Present: normal inspection, full ROM, normal capillary refill. Absent: tenderness, pedal edema, joint swelling, calf tenderness Back exam: Present: normal inspection Neurological exam: Present: alert, oriented X3, CN II-XII intact Expanded Patient oriented to: Present: person, place, time Speech: Present: fluid speech Cranial nerves: EOM's Intact: Normal, Gag Reflex: Normal, Tongue Deviation: Normal, Facial Sensation: Normal Cerebellar function: Finger to Nose: Normal Upper motor neuron: Ghulam Neglect: Normal, Pronator Drift: Normal Sensory exam: Upper Extremity Light Touch: Normal, Lower Extremity Light Touch: Normal Motor strength exam: RUE: 5, LUE: 5, RLE: 5, LLE: 5 Eye Response: (4) open spontaneously Motor Response: (6) obeys commands Verbal Response: (5) oriented Riley Total: 15 Psychiatric exam: Present: normal affect, normal mood Skin exam: Present: warm, dry, intact, normal color. Absent: rash Course Vital Signs 09/29/16 09/29/16 19:38 22:18 Temperature 97.6 F 98.0 F Pulse Rate 87 78 Respiratory 18 18 Rate Blood Pressure 161/83 136/78 O2 Sat by Pulse 97 96 Oximetry Medical Decision Making - Medical Decision Making Patient is a 66 year old female with headache, dysuria, mild flank pain, and left eye conjunctival injection. blood work was reviewed. Patient does have a mildly blunted BUN/creatinine 23. Urine does show moderate leukocyte esterase. Moderate low blood cells and white blood cells. Patient has no CVA tenderness. Patient will be started on anabiotic for UTI. Given antibiotic eye drops. Patient has no fever, or white count. Will discharge the patient discussed close follow up with PCP tomorrow. CT reviewed negative for intracranial process. - Lab Data Result diagrams: 09/29/16 20:21 09/29/16 20:21 Lab Results 09/29/16 09/29/16 09/29/16 Range/Units 20:09 20:21 20:21 WBC 9.1 (3.8-10.6) k/uL RBC 5.25 (3.80-5.40) m/uL Hgb 14.9 (11.4-16.0) gm/dL Hct 45.0 (34.0-46.0) % MCV 85.7 (80.0-100.0) fL MCH 28.4 (25.0-35.0) pg MCHC 33.1 (31.0-37.0) g/dL RDW 16.3 H (11.5-15.5) % Plt Count 312 (150-450) k/uL Neutrophils % 69 % Lymphocytes % 22 % Monocytes % 6 % Eosinophils % 1 % Basophils % 0 % Neutrophils # 6.2 (1.3-7.7) k/uL Lymphocytes # 2.0 (1.0-4.8) k/uL Monocytes # 0.5 (0-1.0) k/uL Eosinophils # 0.1 (0-0.7) k/uL Basophils # 0.0 (0-0.2) k/uL Poikilocytosis Slight Anisocytosis Slight Sodium 144 (137-145) mmol/L Potassium 3.7 (3.5-5.1) mmol/L Chloride 103 (98-107) mmol/L Carbon Dioxide 29 (22-30) mmol/L Anion Gap 12 mmol/L BUN 23 H (7-17) mg/dL Creatinine 0.64 (0.52-1.04) mg/dL Est GFR (MDRD) Af Amer >60 (>60 ml/min/1.73 sqM) Est GFR (MDRD) Non-Af >60 (>60 ml/min/1.73 sqM) Glucose 73 L (74-99) mg/dL Calcium 11.5 H (8.4-10.2) mg/dL Total Bilirubin 1.3 (0.2-1.3) mg/dL AST 24 (14-36) U/L ALT 31 (9-52) U/L Alkaline Phosphatase 68 (38-126) U/L Total Protein 7.2 (6.3-8.2) g/dL Albumin 4.5 (3.5-5.0) g/dL Urine Color Yellow Urine Appearance Clear (Clear) Urine pH 6.0 (5.0-8.0) Ur Specific [place] 1.026 (1.001-1.035) Urine Protein 1+ H (Negative) Urine Glucose (UA) Trace H (Negative) Urine Ketones Negative (Negative) Urine Blood Negative (Negative) Urine Nitrite Negative (Negative) Urine Bilirubin Negative (Negative) Urine Urobilinogen <2.0 (<2.0) mg/dL Ur Leukocyte Esterase Moderate H (Negative) Urine RBC 6 H (0-5) /hpf Urine WBC 19 H (0-5) /hpf Ur Squamous Epith Cells <1 (0-4) /hpf Urine Bacteria Few H (None) /hpf Hyaline Casts 4 H (0-2) /lpf Urine Mucus Rare H (None) /hpf - Radiology Data Radiology results: report reviewed Cerebral atrophy and chronic small vessel ischemia. No change compared to old exam. No acute abnormality. Disposition Clinical Impression: UTI (urinary tract infection), Headache Disposition: HOME SELF-CARE Condition: Good Instructions: Urinary Tract Infection in Women (ED) Additional Instructions: Continue to take at home pain medication. Completely and by prescription. Follow-up with primary care provider within the next 2-3 days. Take steroids as directed. Return to emergency department if any alarming signs or symptoms occur. Prescriptions: Ciprofloxacin HCl [Cipro] 500 mg PO Q12HR #14 tablet Referrals: David Mccartney MD [Primary Care Provider] - 1-2 days Time of Disposition: 22:14
[2016-09-29 20:50] LABS: ALT 31 U/L (9-52); AST 24 U/L (14-36); Alkaline Phosphatase 68 U/L (38-126); Anion Gap 12 mmol/L; Blood Urea Nitrogen 23 mg/dL (7-17); Calcium 11.5 mg/dL (8.4-10.2); Carbon Dioxide 29 mmol/L (22-30); Chloride 103 mmol/L (98-107); Glucose 73 mg/dL (74-99); Non-African American GFR(MDRD) >60 (>60 ml/min/1.73 sqM); Potassium 3.7 mmol/L (3.5-5.1); Sodium 144 mmol/L (137-145); Total Bilirubin 1.3 mg/dL (0.2-1.3); Total Protein 7.2 g/dL (6.3-8.2)
--- NOTE | 2016-09-29 21:01 | CT ---
EXAMINATION TYPE: CT brain wo con DATE OF EXAM: 09/29/2016 8:49 PM COMPARISON: 12/03/2015 HISTORY: headache, c/o bleeding from left eye CT DLP: 1100 mGycm Automated exposure control for dose reduction was used. FINDINGS: There is cerebral cortical atrophy. There is no mass effect nor midline shift. There is no sign of in tracranial hemorrhage. The calvarium is intact. There is mild hypodensity in the white matter both po sterior parietal lobes. IMPRESSION: Cerebral atrophy and chronic small vessel ischemia. No change compared to old exam. No acute abnormal ity.
[2016-09-29 22:19] VITALS: BP 136/78; PULSE 78; TEMP 98
== END 2016-09-29 22:24 | disposition home or self-care (01) ==
LOC: EC 19:36
DX: N39.0 Urinary tract infection, site not specified (principal); R51 Headache; R10.9 Unspecified abdominal pain; E11.9 Type 2 diabetes mellitus without complications; M79.7 Fibromyalgia; E78.5 Hyperlipidemia, unspecified; I10 Essential (primary) hypertension; M19.90 Unspecified osteoarthritis, unspecified site; Z53.20 Procedure and treatment not carried out because of patient's decision for unspecified reasons; Z86.718 Personal history of other venous thrombosis and embolism; Z79.82 Long term (current) use of aspirin; Z79.4 Long term (current) use of insulin; Z79.899 Other long term (current) drug therapy; Z88.2 Allergy status to sulfonamides; Z88.0 Allergy status to penicillin; Z88.1 Allergy status to other antibiotic agents; Z88.5 Allergy status to narcotic agent
CPT/HCPCS: 99284; 96374; 96375; 96376; 96361 ×2; 36415; 80053; 85025; 81001; 87086; 70450; J2405; J1170

== ENCOUNTER → 2016-11-07 | Outpatient (CLI) | payer MEDICARE, BC ==
[2016-11-07 12:10] LABS: Alkaline Phosphatase 63 U/L (38-126); Calcium 10.8 mg/dL (8.4-10.2); Non-African American GFR(MDRD) >60 (>60 ml/min/1.73 sqM)
[2016-11-10 08:22] LABS: Cortisol, Urine Free by LC-MS 48.2 ug/L
== END | disposition home or self-care (01) ==
LOC: LABWHC1 11:24
PROVIDERS: ATTEND Internal Medicine Endocrinology, Diabetes & Metabolism
DX: E21.0 Primary hyperparathyroidism (principal); E55.9 Vitamin D deficiency, unspecified; M85.80 Other specified disorders of bone density and structure, unspecified site; E27.49 Other adrenocortical insufficiency; E66.8 Other obesity
CPT/HCPCS: 36415; 81050; 82040; 82306; 82310; 82340; 82530; 82565; 82570; 82575; 83970; 84075; 84300

== ENCOUNTER 2017-01-23 12:15 | Emergency (ER) | payer MEDICARE, BC ==
[2017-01-23] MEDS ORDERED: ONDANSETRON 4 MG/2 ML VIAL IVP STA (13:08)
[2017-01-23] MEDS ORDERED: SODIUM CHLORIDE 0.9% 1,000 ML IV ONE (13:08)
[2017-01-23] MEDS ORDERED: MORPHINE SULFATE 4 MG/ML SYRINGE IVP STA ×2 (13:10→14:19)
--- NOTE | 2017-01-23 13:20 | ED ---
Female Urogenital HPI - General Chief complaint: Urogenital Stated complaint: Poss UTI Time Seen by Provider: 01/23/17 13:00 Source: patient Mode of arrival: wheelchair Limitations: no limitations - History of Present Illness Initial comments: This is a 66-year-old female with a history of multiple UTIs in the past who presents emergency department for suprapubic abdominal pain and left flank pain. She states that she's also been having dysuria and frequency for the last week. She states that she felt like she was coming down with a UTI however that she would get that her on her own. She has urinalysis testing at home and states that she's had 2 positive results so she decided to come to the emergency department. She states that she has been very nauseated and is having difficulty keeping down any fluids. He is also having a significant amount of plain in her left flank. She denies any fevers or chills. No diarrhea. No other complaints. - Related Data Home Medications Medication Instructions Recorded Confirmed Aspirin 81 mg PO DAILY 12/01/14 09/29/16 Atorvastatin Calcium [Lipitor] 20 mg PO HS 12/01/14 09/29/16 Cholecalciferol [Vitamin D3] 1,000 unit PO DAILY 12/01/14 09/29/16 Gabapentin [Gabapentin] 200 mg PO HS 12/01/14 09/29/16 Hydrocodone/Acetaminophen 1 tab PO Q4H PRN 12/01/14 09/29/16 [Hydrocodon-Acetaminophn 10-325] Lisinopril [Prinivil] 20 mg PO BID 12/01/14 09/29/16 Meclizine [Antivert] 25 mg PO TID PRN 12/01/14 09/29/16 Metoprolol Tartrate [Metoprolol 150 mg PO HS 12/01/14 09/29/16 Tartrate] Promethazine [Phenergan] 25 mg PO Q6HR PRN 12/01/14 09/29/16 Ascorbic Acid [Vitamin C] 500 mg PO DAILY 10/12/15 09/29/16 B Complex-Vit C-Vit E-Zinc [Z-Bec] 1 tab PO DAILY 10/12/15 09/29/16 Cyclobenzaprine [Flexeril] 10 mg PO TID PRN 10/12/15 09/29/16 Hydrocortisone [Cortef] 30 mg PO BID 10/12/15 09/29/16 L.acidoph,Paracasei, B.lactis 2 cap PO DAILY 10/12/15 09/29/16 [Probiotic] Melatonin 3 mg PO HS PRN 10/12/15 09/29/16 Multivitamins, Thera [Multivitamin] 1 tab PO DAILY 10/12/15 09/29/16 Ondansetron [Zofran] 4 mg PO Q6H PRN 10/12/15 09/29/16 Potassium 99 mg PO DAILY 10/12/15 09/29/16 Glimepiride [Amaryl] 2 mg PO QAM 11/17/15 09/29/16 amLODIPine [Norvasc] 5 mg PO DAILY 11/17/15 09/29/16 metFORMIN HCL 1,000 mg PO BID 11/17/15 09/29/16 Calcium Carb/Vitamin D3/Vit K1 2 tab PO DAILY 06/23/16 09/29/16 [Citracal Soft Chew] Insulin Detemir [Levemir Flextouch] 14 units SQ HS 06/23/16 09/29/16 Previous Rx's Medication Instructions Recorded Albuterol Nebulized [Ventolin 2.5 mg INHALATION Q4H PRN #25 nebu 06/23/16 Nebulized] Ciprofloxacin HCl [Cipro] 500 mg PO Q12HR #14 tablet 09/29/16 Cephalexin [Keflex] 500 mg PO Q12HR #14 cap 01/23/17 Allergies Allergy/AdvReac Type Severity Reaction Status Date / Time butorphanol tartrate Allergy BLISTERS Verified 01/23/17 12:59 [From Stadol] IN MOUTH caffeine [From Cafergot] Allergy Unknown Verified 01/23/17 12:59 clarithromycin [From Biaxin] Allergy Rash/Hives Verified 01/23/17 12:59 codeine Allergy Rash/Hives Verified 01/23/17 12:59 ergotamine tartrate Allergy Unknown Verified 01/23/17 12:59 [From Cafergot] erythromycin base Allergy RASH, GI Verified 01/23/17 12:59 [From E-Mycin] SYMPTOMS ketorolac tromethamine Allergy Rash/Hives Verified 01/23/17 12:59 [From Toradol] monosodium glutamate [MSG] Allergy Nausea & Verified 01/23/17 12:59 Vomiting morphine Allergy Rash/Hives Verified 01/23/17 12:59 nalbuphine HCl [From Nubain] Allergy Nausea & Verified 01/23/17 12:59 Vomiting Penicillins Allergy Rash/Hives Verified 01/23/17 12:59 pentazocine lactate Allergy SEVERE Verified 01/23/17 12:59 [From Talwin] BLISTERS IN MOUTH pregabalin [From Lyrica] Allergy Rash/Hives Verified 01/23/17 12:59 propoxyphene HCl Allergy Rash/Hives Verified 01/23/17 12:59 [From Darvon] Sulfa (Sulfonamide Allergy Rash/Hives Verified 01/23/17 12:59 Antibiotics) Review of Systems ROS Statement: Those systems with pertinent positive or pertinent negative responses have been documented in the HPI. ROS Other: All systems not noted in ROS Statement are negative. Past Medical History Past Medical History: COPD, Diabetes Mellitus, Deep Vein Thrombosis (DVT), Fibromyalgia, Hyperlipidemia, Hypertension, Musculoskeletal Disorder, Osteoarthritis (OA), Sleep Apnea/CPAP/BIPAP Additional Past Medical History / Comment(s): DVT 1976; HX KIDNEY STONES; VARICOSE VEINS; USES CPAP; LT 5TH DIGIT BONE PROB; ADRENAL INSUFF, migraines History of Any Multi-Drug Resistant Organisms: MRSA Date of last positivie culture/infection: 2012 MDRO Source:: UNKNOWN Past Surgical History: Appendectomy, Back Surgery, Bladder Surgery, Cholecystectomy, Hysterectomy, Orthopedic Surgery, Tonsillectomy Additional Past Surgical History / Comment(s): EXC TUMOR RT ARM; OVARIAN CYST EXC; NADEEN TUBES, OVARIES REMOVED; 4TH RT TOE AMPUTATION; EXC NADEEN CATARACTS; KIDNEY STONE REMOVALS Past Anesthesia/Blood Transfusion Reactions: No Reported Reaction Past Psychological History: No Psychological Hx Reported Smoking Status: Never smoker Past Alcohol Use History: Occasional Past Drug Use History: None Reported - Past Family History Mother Family Medical History: No Reported History Additional Family Medical History / Comment(s): MAT GRANDMOTHER FROM BLOOD CLOT General Exam - General Exam Comments Initial Comments: Constitutional: Awake alert Appears comfortable Head: Normocephalic atraumatic Eyes: no conjunctival injection No scleral icterus EOMI Neck: No JVD Supple Heart: Regular rate rhythm normal S1-S2 no murmurs Lungs: Clear to auscultation bilaterally No wheezing No rales Abdomen: Soft nondistended suprapubic tenderness without rebound or guarding, no CVA tenderness Extremities: Non edematous DP pulses intact Radial pulses intact Neuro: A&Ox3 No focal neurologic deficits Psych: Appropriate mood and affect Limitations: no limitations Course Vital Signs 01/23/17 01/23/17 12:56 13:24 Temperature 97.4 F L 98.6 F Pulse Rate 64 67 Respiratory 16 18 Rate Blood Pressure 113/58 115/65 O2 Sat by Pulse 96 95 Oximetry Medical Decision Making - Medical Decision Making This is a 66-year-old female who presents emergency department for dysuria and flank pain. She had no objective evidence of pyelonephritis on examination. White blood cell, was normal. She was given 1 L of fluids, Zofran, morphine, and Rocephin. UA was positive for UTI. It was sent for culture. The patient states that she is typically on Keflex or Cipro and she feels that the Keflex seems to work better for her. I will discharge her on Keflex for home after she gets her dose of Rocephin here. She was told to follow-up with her primary doctor and also Dr. Barrientos. She can return if she has worsening or changing symptoms. All questions were answered. - Lab Data Result diagrams: 01/23/17 13:28 01/23/17 13:28 Lab Results 01/23/17 01/23/17 01/23/17 Range/Units 13:14 13:28 13:28 WBC 10.1 (3.8-10.6) k/uL RBC 5.41 H (3.80-5.40) m/uL Hgb 14.5 (11.4-16.0) gm/dL Hct 45.4 (34.0-46.0) % MCV 83.9 (80.0-100.0) fL MCH 26.8 (25.0-35.0) pg MCHC 32.0 (31.0-37.0) g/dL RDW 16.2 H (11.5-15.5) % Plt Count 251 (150-450) k/uL Neutrophils % 77 % Lymphocytes % 16 % Monocytes % 4 % Eosinophils % 2 % Basophils % 0 % Neutrophils # 7.8 H (1.3-7.7) k/uL Lymphocytes # 1.6 (1.0-4.8) k/uL Monocytes # 0.4 (0-1.0) k/uL Eosinophils # 0.2 (0-0.7) k/uL Basophils # 0.0 (0-0.2) k/uL Anisocytosis Slight Sodium 139 (137-145) mmol/L Potassium 4.3 (3.5-5.1) mmol/L Chloride 103 (98-107) mmol/L Carbon Dioxide 25 (22-30) mmol/L Anion Gap 11 mmol/L BUN 18 H (7-17) mg/dL Creatinine 0.70 (0.52-1.04) mg/dL Est GFR (MDRD) Af Amer >60 (>60 ml/min/1.73 sqM) Est GFR (MDRD) Non-Af >60 (>60 ml/min/1.73 sqM) Glucose 224 H (74-99) mg/dL Calcium 10.9 H (8.4-10.2) mg/dL Total Bilirubin 1.1 (0.2-1.3) mg/dL AST 19 (14-36) U/L ALT 32 (9-52) U/L Alkaline Phosphatase 74 (38-126) U/L Total Protein 6.8 (6.3-8.2) g/dL Albumin 4.4 (3.5-5.0) g/dL Urine Color Yellow Urine Appearance Clear (Clear) Urine pH 5.5 (5.0-8.0) Ur Specific [place] 1.024 (1.001-1.035) Urine Protein Trace H (Negative) Urine Glucose (UA) Trace H (Negative) Urine Ketones Trace H (Negative) Urine Blood Negative (Negative) Urine Nitrite Negative (Negative) Urine Bilirubin Negative (Negative) Urine Urobilinogen <2.0 (<2.0) mg/dL Ur Leukocyte Esterase Large H (Negative) Urine RBC 2 (0-5) /hpf Urine WBC 41 H (0-5) /hpf Ur Squamous Epith Cells <1 (0-4) /hpf Hyaline Casts 1 (0-2) /lpf Urine Mucus Rare H (None) /hpf Disposition Clinical Impression: UTI (urinary tract infection) Disposition: HOME SELF-CARE Condition: Stable Instructions: Urinary Tract Infection in Women (ED) Prescriptions: Cephalexin [Keflex] 500 mg PO Q12HR #14 cap Referrals: Juan Joe MD [Primary Care Provider] - 1-2 days Isaias Barrientos MD [STAFF PHYSICIAN] - 1-2 days
[2017-01-23 13:25] VITALS: TEMP 98.6
[2017-01-23 13:35] LABS: Appearance,Urine Clear (Clear); Bilirubin,Urine Negative (Negative); Glucose,Urine (UA) Trace (Negative); Ketones,Urine Trace (Negative); Leukocyte Esterase,Urine Large (Negative); Mucus,Urine Rare /hpf; Nitrite,Urine Negative (Negative); PH, Urine 5.5 (5.0-8.0); Particle Count 2867; Protein,Urine Trace (Negative); RBC,Urine 2 /hpf (0-5); Specific Gravity,Urine 1.024 (1.001-1.035); Squamous Epithelial Cell,Urine <1 /hpf (0-4); UA Billing (MACRO vs. MICRO) MICRO; Urobilinogen,Urine <2.0 mg/dL (<2.0); WBC,Urine 41 /hpf (0-5)
[2017-01-23 13:39] LABS: Anisocytosis Slight; Basophils % (A) 0 %; CH 27.4; CHCM 32.8; Eosinophils # (A) 0.2 k/uL (0-0.7); Eosinophils % (A) 2 %; HCT 45.4 % (34.0-46.0); HDW 3.25; HGB 14.5 gm/dL (11.4-16.0); Luc # (Auto) 0.08; Luc % (Auto) 1; Lymphocytes # (A) 1.6 k/uL (1.0-4.8); Lymphocytes % (A) 16 %; MCH 26.8 pg (25.0-35.0); MCV 83.9 fL (80.0-100.0); Mean Platelet Volume 8.4; Monocytes # (A) 0.4 k/uL (0-1.0); Monocytes % (A) 4 %; Neutrophils # (A) 7.8 k/uL (1.3-7.7); Neutrophils % (A) 77 %; RBC 5.41 m/uL (3.80-5.40); RDW 16.2 % (11.5-15.5); WBC 10.1 k/uL (3.8-10.6); WBC (Perox) 10.13
[2017-01-23 13:53] LABS: ALT 32 U/L (9-52); AST 19 U/L (14-36); Alkaline Phosphatase 74 U/L (38-126); Anion Gap 11 mmol/L; Blood Urea Nitrogen 18 mg/dL (7-17); Calcium 10.9 mg/dL (8.4-10.2); Carbon Dioxide 25 mmol/L (22-30); Chloride 103 mmol/L (98-107); Glucose 224 mg/dL (74-99); Non-African American GFR(MDRD) >60 (>60 ml/min/1.73 sqM); Potassium 4.3 mmol/L (3.5-5.1); Sodium 139 mmol/L (137-145); Total Bilirubin 1.1 mg/dL (0.2-1.3); Total Protein 6.8 g/dL (6.3-8.2)
[2017-01-23 14:33] VITALS: BP 126/59; PULSE 66; RESP 16
== END 2017-01-23 14:50 | disposition home or self-care (01) ==
LOC: EC 12:15
DX: N39.0 Urinary tract infection, site not specified (principal); R11.0 Nausea; E78.5 Hyperlipidemia, unspecified; I10 Essential (primary) hypertension; M19.90 Unspecified osteoarthritis, unspecified site; M79.7 Fibromyalgia; E11.9 Type 2 diabetes mellitus without complications; Z86.14 Personal history of Methicillin resistant Staphylococcus aureus infection; Z86.718 Personal history of other venous thrombosis and embolism; Z90.49 Acquired absence of other specified parts of digestive tract; Z90.710 Acquired absence of both cervix and uterus; Z98.890 Other specified postprocedural states; Z79.4 Long term (current) use of insulin; Z79.82 Long term (current) use of aspirin; Z79.899 Other long term (current) drug therapy; Z88.0 Allergy status to penicillin; Z88.1 Allergy status to other antibiotic agents; Z88.2 Allergy status to sulfonamides; Z88.5 Allergy status to narcotic agent; Z88.6 Allergy status to analgesic agent; Z88.8 Allergy status to other drugs, medicaments and biological substances
CPT/HCPCS: 36415; 80053; 85025; 81001; 87086; 99284; 96365; 96375 ×2; 96376; 96361; J2270; J2405; J0696

== ENCOUNTER 2017-02-06 10:49 | Inpatient (IN) | payer MEDICARE, BC ==
[2017-02-06 10:59] LABS: Glucose,Whole Blood 230 mg/dL (75-99)
[2017-02-06 11:41] LABS: Appearance,Urine Clear (Clear); Bilirubin,Urine Negative (Negative); Glucose,Urine (UA) 4+ (Negative); Ketones,Urine 1+ (Negative); Leukocyte Esterase,Urine Trace (Negative); Mucus,Urine Rare /hpf; Nitrite,Urine Negative (Negative); PH, Urine 5.5 (5.0-8.0); Particle Count 1849; Protein,Urine Trace (Negative); RBC,Urine 1 /hpf (0-5); Squamous Epithelial Cell,Urine <1 /hpf (0-4); UA Billing (MACRO vs. MICRO) MICRO; Urobilinogen,Urine <2.0 mg/dL (<2.0); WBC,Urine 4 /hpf (0-5)
[2017-02-06] MEDS ORDERED: SODIUM CHLORIDE 0.9% 500 ML IV STA (11:49)
--- NOTE | 2017-02-06 12:22 | XR ---
EXAMINATION TYPE: XR chest 2V DATE OF EXAM: 02/06/2017 COMPARISON: 12/12/2016 TECHNIQUE: PA and lateral views submitted. HISTORY: Dizziness FINDINGS: The lungs are clear and there is no pneumothorax, pleural effusion, or focal pneumonia. Bilateral p leural thickening greater on the right noted with evidence of cardiomegaly. Scoliotic curvature of th e spine noted. Biapical pleural thickening. Chronic appearing deformity of the right clavicle and sagar ulder suggest previous surgery correlate clinically. Chronic rib deformity suggests previous trauma. IMPRESSION: 1. No acute process. Cardiomegaly and pleural-based thickening appears stable.
[2017-02-06] MEDS ORDERED: ONDANSETRON 4 MG/2 ML VIAL IVP STA (12:25)
[2017-02-06] MEDS ORDERED: MORPHINE SULFATE 4 MG/ML SYRINGE IVP STA (12:25)
--- NOTE | 2017-02-06 12:36 | ED ---
General Adult HPI - General Chief complaint: Recheck/Abnormal Lab/Rx Stated complaint: high blood sugar Source: patient Mode of arrival: wheelchair Limitations: no limitations - History of Present Illness Initial comments: 66-year-old female with a past medical history of COPD, diabetes mellitus, DVT, fibromyalgia, hyperlipidemia, hypertension, osteoporosis, sleep apnea, kidney stones, adrenal insufficiency, and migraines presented for evaluation of dysuria and dizziness. She states that 2 weeks ago she had a urinary tract infection that was treated with antibiotics but her symptoms have never fully resolved. She states that she has recently gotten dizzy with her urinary tract infections and this morning she felt markedly worse. She saw Dr. Guardado in the office on Monday at which point her insulin was increased and she was advised to go to the ED if her symptoms should worsen or persist. - Related Data Home Medications Medication Instructions Recorded Confirmed Aspirin 81 mg PO DAILY 12/01/14 02/06/17 Atorvastatin Calcium [Lipitor] 20 mg PO HS 12/01/14 02/06/17 Cholecalciferol [Vitamin D3] 1,000 unit PO DAILY@0712/01/14 02/06/17 Hydrocodone/Acetaminophen 1 tab PO Q4H PRN 12/01/14 02/06/17 [Hydrocodon-Acetaminophn 10-325] Lisinopril [Prinivil] 20 mg PO DAILY 12/01/14 02/06/17 Meclizine [Antivert] 25 mg PO TID PRN 12/01/14 02/06/17 Metoprolol Tartrate [Metoprolol 150 mg PO HS 12/01/14 02/06/17 Tartrate] Promethazine [Phenergan] 25 mg PO Q6HR PRN 12/01/14 02/06/17 Cyclobenzaprine [Flexeril] 10 mg PO TID PRN 10/12/15 02/06/17 Hydrocortisone [Cortef] 20 mg PO DAILY@0700 10/12/15 02/06/17 L.acidoph,Paracasei, B.lactis 2 cap PO BID 10/12/15 02/06/17 [Probiotic] Ondansetron [Zofran] 4 mg PO Q6H PRN 10/12/15 02/06/17 Potassium 99 mg PO DAILY 10/12/15 02/06/17 amLODIPine [Norvasc] 5 mg PO DAILY 11/17/15 02/06/17 metFORMIN HCL 1,000 mg PO BID 11/17/15 02/06/17 Insulin Detemir [Levemir Flextouch] 18 units SQ HS 06/23/16 02/06/17 Glimepiride [Amaryl] 4 mg PO DAILY@0700 01/23/17 02/06/17 Hydrocortisone [Cortef] 10 mg PO DAILY@1500 01/23/17 02/06/17 Melatonin 5 mg PO HS PRN 01/23/17 02/06/17 Allergies Allergy/AdvReac Type Severity Reaction Status Date / Time butorphanol tartrate Allergy BLISTERS Verified 02/06/17 11:29 [From Stadol] IN MOUTH caffeine [From Cafergot] Allergy Unknown Verified 02/06/17 11:29 clarithromycin [From Biaxin] Allergy Rash/Hives Verified 02/06/17 11:29 codeine Allergy Rash/Hives Verified 02/06/17 11:29 ergotamine tartrate Allergy Unknown Verified 02/06/17 11:29 [From Cafergot] erythromycin base Allergy RASH, GI Verified 02/06/17 11:29 [From E-Mycin] SYMPTOMS ketorolac tromethamine Allergy Rash/Hives Verified 02/06/17 11:29 [From Toradol] monosodium glutamate [MSG] Allergy Nausea & Verified 02/06/17 11:29 Vomiting morphine Allergy Rash/Hives Verified 02/06/17 11:29 nalbuphine HCl [From Nubain] Allergy Nausea & Verified 02/06/17 11:29 Vomiting Penicillins Allergy Rash/Hives Verified 02/06/17 11:29 pentazocine lactate Allergy SEVERE Verified 02/06/17 11:29 [From Talwin] BLISTERS IN MOUTH pregabalin [From Lyrica] Allergy Rash/Hives Verified 02/06/17 11:29 propoxyphene HCl Allergy Rash/Hives Verified 02/06/17 11:29 [From Darvon] Sulfa (Sulfonamide Allergy Rash/Hives Verified 02/06/17 11:29 Antibiotics) Review of Systems ROS Statement: Those systems with pertinent positive or pertinent negative responses have been documented in the HPI. ROS Other: All systems not noted in ROS Statement are negative. Constitutional: Denies: fever, chills Eyes: Denies: eye pain, eye discharge ENT: Denies: ear pain, throat pain Respiratory: Denies: cough, dyspnea, wheezes Cardiovascular: Denies: chest pain, palpitations Endocrine: Denies: fatigue, heat or cold intolerance Gastrointestinal: Reports: nausea. Denies: abdominal pain, vomiting Genitourinary: Reports: dysuria. Denies: urgency, frequency, hematuria Musculoskeletal: Denies: back pain, joint swelling Skin: Denies: rash, lesions Neurological: Reports: headache, vertigo. Denies: weakness, numbness, paresthesias, confusion Psychiatric: Denies: anxiety, depression Hematological/Lymphatic: Denies: easy bleeding, easy bruising Past Medical History Past Medical History: COPD, Diabetes Mellitus, Deep Vein Thrombosis (DVT), Fibromyalgia, Hyperlipidemia, Hypertension, Musculoskeletal Disorder, Osteoarthritis (OA), Sleep Apnea/CPAP/BIPAP Additional Past Medical History / Comment(s): DVT 1976; HX KIDNEY STONES; VARICOSE VEINS; USES CPAP; LT 5TH DIGIT BONE PROB; ADRENAL INSUFF, migraines History of Any Multi-Drug Resistant Organisms: MRSA Date of last positivie culture/infection: 2012 MDRO Source:: UNKNOWN Past Surgical History: Appendectomy, Back Surgery, Bladder Surgery, Cholecystectomy, Hysterectomy, Orthopedic Surgery, Tonsillectomy Additional Past Surgical History / Comment(s): EXC TUMOR RT ARM; OVARIAN CYST EXC; NADEEN TUBES, OVARIES REMOVED; 4TH RT TOE AMPUTATION; EXC NADEEN CATARACTS; KIDNEY STONE REMOVALS Past Anesthesia/Blood Transfusion Reactions: No Reported Reaction Past Psychological History: No Psychological Hx Reported Smoking Status: Never smoker Past Alcohol Use History: Occasional Past Drug Use History: None Reported - Past Family History Mother Family Medical History: No Reported History Additional Family Medical History / Comment(s): MAT GRANDMOTHER FROM BLOOD CLOT General Exam Limitations: no limitations General appearance: alert, in no apparent distress Head exam: Present: atraumatic, normocephalic, normal inspection Eye exam: Present: normal appearance, PERRL, EOMI. Absent: scleral icterus, conjunctival injection, periorbital swelling ENT exam: Present: normal exam, mucous membranes moist, other (proptosis) Neck exam: Present: normal inspection. Absent: tenderness, meningismus, lymphadenopathy Respiratory exam: Present: normal lung sounds bilaterally. Absent: respiratory distress, wheezes, rales, rhonchi, stridor Cardiovascular Exam: Present: regular rate, normal rhythm, normal heart sounds. Absent: systolic murmur, diastolic murmur, rubs, gallop, clicks GI/Abdominal exam: Present: soft, normal bowel sounds. Absent: distended, tenderness, guarding, rebound, rigid Rectal exam: Present: deferred Extremities exam: Present: normal inspection, full ROM, normal capillary refill. Absent: tenderness, pedal edema, joint swelling, calf tenderness Back exam: Present: normal inspection Neurological exam: Present: alert, oriented X3, CN II-XII intact, abnormal gait (requiring assistance with ambulation) Psychiatric exam: Present: normal affect, normal mood Skin exam: Present: warm, dry, intact, normal color. Absent: rash Course Vital Signs 02/06/17 02/06/17 02/06/17 10:53 12:45 13:57 Temperature 97.6 F 97.9 F Pulse Rate 72 68 Pulse Rate [ Pulse Oximetery ] Respiratory 18 16 16 Rate Blood Pressure 129/65 136/68 Blood Pressure [Left Arm] O2 Sat by Pulse 95 93 L Oximetry 02/06/17 02/06/17 17:10 17:38 Temperature 97.1 F L 98.3 F Pulse Rate 70 Pulse Rate [ 70 Pulse Oximetery ] Respiratory 16 18 Rate Blood Pressure 124/62 Blood Pressure 141/71 [Left Arm] O2 Sat by Pulse 97 95 Oximetry EKG Findings - EKG Comments: EKG Findings:: EKG shows normal sinus rhythm with ventricular rate of 62, BEAU 150, QRS 84, QT/QTc 420/426. Medical Decision Making - Medical Decision Making 66-year-old female presented for evaluation of intractable dizziness with associated dysuria for the last 2 weeks. She was diagnosed with urinary tract infection at that time and given antibiotics but states that her symptoms never fully resolved. On physical examination she has cranial nerves II through XII intact without focal neurologic deficit however she is unable to ambulate without assistance in the hallway. She states that he she usually has normal gait and station. Concern for posterior stroke versus UTI with secondary dizziness. Labs revealed mild hyperglycemia as well as 4+ glucose in the urine 1+ ketones. No indication of urinary tract infection. CT head shows degenerative a nonspecific white matter changes most typical of a remote microvascular ischemia. There is remote lacunar infarction at the right is a ganglion as well that is stable. No acute hemorrhage or midline shift. Nonobstructing left renal cochlear and basilar atelectasis noted on CT renal stone. Dr. Ponce accepted the admission without further request. Admission order placed and bed request submitted. - Lab Data Result diagrams: 02/06/17 12:08 02/06/17 12:08 Lab Results 02/06/17 02/06/17 02/06/17 Range/Units 10:57 11:11 12:08 WBC 10.0 (3.8-10.6) k/uL RBC 4.85 (3.80-5.40) m/uL Hgb 13.1 (11.4-16.0) gm/dL Hct 41.4 (34.0-46.0) % MCV 85.4 (80.0-100.0) fL MCH 27.1 (25.0-35.0) pg MCHC 31.7 (31.0-37.0) g/dL RDW 16.6 H (11.5-15.5) % Plt Count 232 (150-450) k/uL Neutrophils % 77 % Lymphocytes % 15 % Monocytes % 4 % Eosinophils % 2 % Basophils % 0 % Neutrophils # 7.7 (1.3-7.7) k/uL Lymphocytes # 1.5 (1.0-4.8) k/uL Monocytes # 0.4 (0-1.0) k/uL Eosinophils # 0.2 (0-0.7) k/uL Basophils # 0.0 (0-0.2) k/uL Anisocytosis Slight Sodium (137-145) mmol/L Potassium (3.5-5.1) mmol/L Chloride (98-107) mmol/L Carbon Dioxide (22-30) mmol/L Anion Gap mmol/L BUN (7-17) mg/dL Creatinine (0.52-1.04) mg/dL Est GFR (MDRD) Af Amer (>60 ml/min/1.73 sqM) Est GFR (MDRD) Non-Af (>60 ml/min/1.73 sqM) Glucose (74-99) mg/dL POC Glucose (mg/dL) 230 H (75-99) mg/dL POC Glu Database Administration Manager ID Beatrice Lehman Calcium (8.4-10.2) mg/dL Total Bilirubin (0.2-1.3) mg/dL AST (14-36) U/L ALT (9-52) U/L Alkaline Phosphatase (38-126) U/L Troponin I (0.000-0.034) ng/mL NT-Pro-B Natriuret Pep pg/mL Total Protein (6.3-8.2) g/dL Albumin (3.5-5.0) g/dL Lipase (23-300) U/L Urine Color Yellow Urine Appearance Clear (Clear) Urine pH 5.5 (5.0-8.0) Ur Specific [place] 1.020 (1.001-1.035) Urine Protein Trace H (Negative) Urine Glucose (UA) 4+ H (Negative) Urine Ketones 1+ H (Negative) Urine Blood Negative (Negative) Urine Nitrite Negative (Negative) Urine Bilirubin Negative (Negative) Urine Urobilinogen <2.0 (<2.0) mg/dL Ur Leukocyte Esterase Trace H (Negative) Urine RBC 1 (0-5) /hpf Urine WBC 4 (0-5) /hpf Ur Squamous Epith Cells <1 (0-4) /hpf Hyaline Casts 3 H (0-2) /lpf Urine Mucus Rare H (None) /hpf 02/06/17 02/06/17 02/06/17 Range/Units 12:08 12:08 12:08 WBC (3.8-10.6) k/uL RBC (3.80-5.40) m/uL Hgb (11.4-16.0) gm/dL Hct (34.0-46.0) % MCV (80.0-100.0) fL MCH (25.0-35.0) pg MCHC (31.0-37.0) g/dL RDW (11.5-15.5) % Plt Count (150-450) k/uL Neutrophils % % Lymphocytes % % Monocytes % % Eosinophils % % Basophils % % Neutrophils # (1.3-7.7) k/uL Lymphocytes # (1.0-4.8) k/uL Monocytes # (0-1.0) k/uL Eosinophils # (0-0.7) k/uL Basophils # (0-0.2) k/uL Anisocytosis Sodium 137 (137-145) mmol/L Potassium 4.6 (3.5-5.1) mmol/L Chloride 100 (98-107) mmol/L Carbon Dioxide 28 (22-30) mmol/L Anion Gap 9 mmol/L BUN 15 (7-17) mg/dL Creatinine 0.63 (0.52-1.04) mg/dL Est GFR (MDRD) Af Amer >60 (>60 ml/min/1.73 sqM) Est GFR (MDRD) Non-Af >60 (>60 ml/min/1.73 sqM) Glucose 249 H (74-99) mg/dL POC Glucose (mg/dL) (75-99) mg/dL POC Glu Database Administration Manager ID Calcium 10.6 H (8.4-10.2) mg/dL Total Bilirubin 1.0 (0.2-1.3) mg/dL AST 20 (14-36) U/L ALT 37 (9-52) U/L Alkaline Phosphatase 60 (38-126) U/L Troponin I <0.012 (0.000-0.034) ng/mL NT-Pro-B Natriuret Pep 376 pg/mL Total Protein 6.2 L (6.3-8.2) g/dL Albumin 4.1 (3.5-5.0) g/dL Lipase 69 (23-300) U/L Urine Color Urine Appearance (Clear) Urine pH (5.0-8.0) Ur Specific [place] (1.001-1.035) Urine Protein (Negative) Urine Glucose (UA) (Negative) Urine Ketones (Negative) Urine Blood (Negative) Urine Nitrite (Negative) Urine Bilirubin (Negative) Urine Urobilinogen (<2.0) mg/dL Ur Leukocyte Esterase (Negative) Urine RBC (0-5) /hpf Urine WBC (0-5) /hpf Ur Squamous Epith Cells (0-4) /hpf Hyaline Casts (0-2) /lpf Urine Mucus (None) /hpf Disposition Clinical Impression: Dizziness Disposition: ADMITTED IP TO THIS [facility] Referrals: Allyson Guardado MD [Primary Care Provider] - 1-2 days Decision to Admit Reason: Admit from EC Decision Date: 02/06/17 Decision Time: 14:24
[2017-02-06 12:37] LABS: Anisocytosis Slight; Basophils % (A) 0 %; CH 27.8; CHCM 32.8; Eosinophils # (A) 0.2 k/uL (0-0.7); Eosinophils % (A) 2 %; HCT 41.4 % (34.0-46.0); HDW 3.18; HGB 13.1 gm/dL (11.4-16.0); Luc # (Auto) 0.15; Luc % (Auto) 2; Lymphocytes # (A) 1.5 k/uL (1.0-4.8); Lymphocytes % (A) 15 %; MCH 27.1 pg (25.0-35.0); MCHC 31.7 g/dL (31.0-37.0); MCV 85.4 fL (80.0-100.0); Mean Platelet Volume 8.3; Monocytes # (A) 0.4 k/uL (0-1.0); Monocytes % (A) 4 %; Neutrophils # (A) 7.7 k/uL (1.3-7.7); Neutrophils % (A) 77 %; RBC 4.85 m/uL (3.80-5.40); RDW 16.6 % (11.5-15.5); WBC (Perox) 10.37
[2017-02-06 12:46] LABS: ALT 37 U/L (9-52); AST 20 U/L (14-36); Alkaline Phosphatase 60 U/L (38-126); Anion Gap 9 mmol/L; Blood Urea Nitrogen 15 mg/dL (7-17); Calcium 10.6 mg/dL (8.4-10.2); Carbon Dioxide 28 mmol/L (22-30); Chloride 100 mmol/L (98-107); Glucose 249 mg/dL (74-99); Non-African American GFR(MDRD) >60 (>60 ml/min/1.73 sqM); Potassium 4.6 mmol/L (3.5-5.1); Sodium 137 mmol/L (137-145); Total Protein 6.2 g/dL (6.3-8.2)
[2017-02-06] MEDS ORDERED: HYDROmorphone 1 MG/ML 1 ML SYRINGE IVP STA (13:50)
[2017-02-06] MEDS ORDERED: NALOXONE 0.4 MG/ML 1 ML VIAL IV PRN ×2 (14:24→17:30)
--- NOTE | 2017-02-06 15:29 | CT ---
EXAMINATION TYPE: CT brain wo con DATE OF EXAM: 02/06/2017 COMPARISON: 09/29/2016 HISTORY: Severe dizziness CT DLP: 1017.6 mGycm Automated exposure control for dose reduction was used. FINDINGS: There is atherosclerotic change of the vasculature including the vertebral arteries and distal caroti d arteries. Area of low attenuation within the basal ganglia is stable from previous suggestive of re mote lacunar infarct. There is mild generalized degenerative change with hypoattenuation within the white matter which appe ars stable suggestive of remote microvascular ischemia. Correlate with MRI as clinically warranted. No midline shift or mass effect. Calvarium intact. IMPRESSION: 1. Degenerative and nonspecific white matter changes most typical remote microvascular ischemia. 2. Remote lacunar infarction right basal ganglia stable. 3. No acute hemorrhage or midline shift.
--- NOTE | 2017-02-06 15:38 | CT ---
EXAMINATION TYPE: CT renal stones wo con DATE OF EXAM: 02/06/2017 HISTORY: Flank and groin pain CT DLP: 511.0 mGycm. Automated Exposure Control for Dose Reduction was Utilized. TECHNIQUE: CT scan of the abdomen and pelvis is performed without oral or IV contrast. COMPARISON: 08/04/2016. FINDINGS: Within the limitations of a non-contrast study, the following observations are made. LUNG BASES: Subsegmental changes are seen bilaterally suggestive of atelectasis. Degree of underlying pulmonary fibrosis not excluded. Heart is enlarged and there are coronary artery calcification.. LIVER/GB: There is cholecystectomy noted.. PANCREAS: No significant abnormality is seen. SPLEEN: No significant abnormality is seen. ADRENALS: No significant abnormality is seen. KIDNEYS: There are 5 punctate calcifications measuring less than 5 mm within the left kidney. No hydr onephrosis. Right kidney demonstrates no definite renal calculi or hydronephrosis. There is a exophyt ic lesion extending off the upper pole of the left kidney measuring 6 Hounsfield units suggestive of a cyst. Measures approximately 2.4 cm. BOWEL: No significant abnormality is seen. LYMPH NODES: No greater than 1cm abdominal or pelvic lymph nodes are appreciated. OSSEOUS STRUCTURES: Postsurgical changes involving the vertebral column noted. Deformity of the pubic ramus suggestive of previous trauma bilaterally arthropathy of the hip joints and degenerative galeana e of the spine. OTHER: No significant additional abnormality is seen. Artifact from the surgery within the vertebral column results in significant artifact within the abdomen and completely obscures the spinal canal at these levels. Soft tissue calcifications in the left posterior soft tissues likely related to soft t issue granuloma. IMPRESSION: 1. Nonobstructing left renal calculi. 2. basilar atelectasis or early infiltrate.
[2017-02-06] MEDS ORDERED: PROCHLORPERAZINE 5 MG TAB PO PRN (17:30)
[2017-02-06] MEDS ORDERED: ACETAMINOPHEN TAB 325 MG TAB PO PRN (17:30)
[2017-02-06] MEDS ORDERED: MELATONIN 3 MG TABLET PO PRN (17:30)
[2017-02-06] MEDS ORDERED: MECLIZINE 25 MG TAB PO PRN (17:37)
[2017-02-06] MEDS ORDERED: CYCLOBENZAPRINE 10 MG TAB PO PRN (17:37)
[2017-02-06 17:40] VITALS: RESP 18
[2017-02-06] MEDS: HYDROmorphone 1 MG/ML 1 ML SYRINGE IVP PRN ×2 (18:19→23:01)
[2017-02-06] MEDS: ONDANSETRON 4 MG/2 ML VIAL IVP PRN (18:20)
--- NOTE | 2017-02-06 19:10 | P.HPIM ---
History of Present Illness H&P Date: 02/06/17 Chief Complaint: Anjali Patient is a 66-year-old female with a history of adrenal insufficiency, diabetes mellitus type 2 on once daily insulin following with endocrinology, hypertension, dyslipidemia, and obstructive sleep apnea who presents with dizziness. She states she woke up this morning at 6:30 AM and took her morning medications. She fell asleep in her recliner and woke up at 8 AM with dizziness. This began before rising from the chair. She states it is worse with movement. She then developed a headache. She also complains of nausea on and as if she could pass out. She describes her headache as a right sided without radiation, and typical of her migraines. She has not had any migraines recently. She also complains of increasing fatigue over the last several months. She was supposed to have her long-acting insulin increased from 14-18 units due to hyperglycemia. Her sugar today was 342 and is typically 250 or less. She also states that she was recently taken off her Neurontin. She reports laying pain, painful urination, and groin pain. She has a history of kidney stones. In the emergency department she underwent an extensive evaluation. Her initial vital signs were within normal limits. She underwent an abdominal CT that showed nonobstructive left renal calculi. Her head CT showed remote lacunar infarcts. Laboratory analysis essentially unremarkable other than a mildly elevated glucose at 249. She is being admitted for possible stroke evaluation. Review of Systems General: no fever/chills, no rigors, no weight loss/weight gain, no change in appetite Eyes: No double vision, + blurry vision, no loss of vision ENT: No rhinorrhea, congestion, no trush Cardiovascular: No chest pain, no palpitations, no syncope, no edema, No paroxysmal nocturnal dyspnea, + dizziness Pulmonary: No shortness of breath, no wheezing, no cough, hemoptysis Abdominal: No abdominal pain, no constipation, no diarrhea, no vomiting, no nausea, no distention Genitourinary: + Dysuria, + urinary frequency, no hematuria, no unusual discharge/odor Neuro: No unusual paresthesias, no unusual paresis/paralysis, + headache Dermatologic: No unusual rashes, no unusual lesions, no unusual changes in nails Endocrinology: No intolerance to heat/cold, no excessive thirst,] + increased fatigue Hematologic: No unusual bruising or bleeding, no unusual cervical lymphadenopathy Psychiatric: No changes in mood or behaviors, no changes in sleep pattern Past Medical History Past Medical History: COPD, Diabetes Mellitus, Deep Vein Thrombosis (DVT), Fibromyalgia, Hyperlipidemia, Hypertension, Musculoskeletal Disorder, Osteoarthritis (OA), Sleep Apnea/CPAP/BIPAP Additional Past Medical History / Comment(s): DVT 1976; HX KIDNEY STONES; VARICOSE VEINS; USES CPAP; LT 5TH DIGIT BONE PROB; ADRENAL INSUFF, migraines History of Any Multi-Drug Resistant Organisms: MRSA Date of last positivie culture/infection: 2012 MDRO Source:: UNKNOWN Past Surgical History: Appendectomy, Back Surgery, Bladder Surgery, Cholecystectomy, Hysterectomy, Orthopedic Surgery, Tonsillectomy Additional Past Surgical History / Comment(s): EXC TUMOR RT ARM; OVARIAN CYST EXC; NADEEN TUBES, OVARIES REMOVED; 4TH RT TOE AMPUTATION; EXC NADEEN CATARACTS; KIDNEY STONE REMOVALS Past Anesthesia/Blood Transfusion Reactions: No Reported Reaction Past Psychological History: No Psychological Hx Reported Smoking Status: Never smoker Past Alcohol Use History: Occasional Past Drug Use History: None Reported - Past Family History Mother Family Medical History: No Reported History Additional Family Medical History / Comment(s): MAT GRANDMOTHER FROM BLOOD CLOT Father Family Medical History: CVA/TIA Medications and Allergies Home Medications Medication Instructions Recorded Confirmed Type Aspirin 81 mg PO DAILY 12/01/14 02/06/17 History Atorvastatin Calcium [Lipitor] 20 mg PO HS 12/01/14 02/06/17 History Cholecalciferol [Vitamin D3] 1,000 unit PO DAILY@0700 12/01/14 02/06/17 History Hydrocodone/Acetaminophen 1 tab PO Q4H PRN 12/01/14 02/06/17 History [Hydrocodon-Acetaminophn 10-325] Lisinopril [Prinivil] 20 mg PO DAILY 12/01/14 02/06/17 History Meclizine [Antivert] 25 mg PO TID PRN 12/01/14 02/06/17 History Metoprolol Tartrate [Metoprolol 150 mg PO HS 12/01/14 02/06/17 History Tartrate] Promethazine [Phenergan] 25 mg PO Q6HR PRN 12/01/14 02/06/17 History Cyclobenzaprine [Flexeril] 10 mg PO TID PRN 10/12/15 02/06/17 History Hydrocortisone [Cortef] 20 mg PO DAILY@0700 10/12/15 02/06/17 History L.acidoph,Paracasei, B.lactis 2 cap PO BID 10/12/15 02/06/17 History [Probiotic] Ondansetron [Zofran] 4 mg PO Q6H PRN 10/12/15 02/06/17 History Potassium 99 mg PO DAILY 10/12/15 02/06/17 History amLODIPine [Norvasc] 5 mg PO DAILY 11/17/15 02/06/17 History metFORMIN HCL 1,000 mg PO BID 11/17/15 02/06/17 History Insulin Detemir [Levemir Flextouch] 18 units SQ HS 06/23/16 02/06/17 History Glimepiride [Amaryl] 4 mg PO DAILY@0700 01/23/17 02/06/17 History Hydrocortisone [Cortef] 10 mg PO DAILY@1500 01/23/17 02/06/17 History Melatonin 5 mg PO HS PRN 01/23/17 02/06/17 History Allergies Allergy/AdvReac Type Severity Reaction Status Date / Time butorphanol tartrate Allergy BLISTERS Verified 02/06/17 11:29 [From Stadol] IN MOUTH caffeine [From Cafergot] Allergy Unknown Verified 02/06/17 11:29 clarithromycin [From Biaxin] Allergy Rash/Hives Verified 02/06/17 11:29 codeine Allergy Rash/Hives Verified 02/06/17 11:29 ergotamine tartrate Allergy Unknown Verified 02/06/17 11:29 [From Cafergot] erythromycin base Allergy RASH, GI Verified 02/06/17 11:29 [From E-Mycin] SYMPTOMS ketorolac tromethamine Allergy Rash/Hives Verified 02/06/17 11:29 [From Toradol] monosodium glutamate [MSG] Allergy Nausea & Verified 02/06/17 11:29 Vomiting morphine Allergy Rash/Hives Verified 02/06/17 11:29 nalbuphine HCl [From Nubain] Allergy Nausea & Verified 02/06/17 11:29 Vomiting Penicillins Allergy Rash/Hives Verified 02/06/17 11:29 pentazocine lactate Allergy SEVERE Verified 02/06/17 11:29 [From Talwin] BLISTERS IN MOUTH pregabalin [From Lyrica] Allergy Rash/Hives Verified 02/06/17 11:29 propoxyphene HCl Allergy Rash/Hives Verified 02/06/17 11:29 [From Darvon] Sulfa (Sulfonamide Allergy Rash/Hives Verified 02/06/17 11:29 Antibiotics) Physical Exam Osteopathic Statement: *. No significant issues noted on an osteopathic structural exam other than those noted in the History and Physical/Consult. Vitals: Vital Signs Temp Pulse Resp BP Pulse Ox 02/06/17 17:10 97.1 F L 70 16 124/62 97 02/06/17 13:57 97.9 F 68 16 136/68 93 L 02/06/17 12:45 16 02/06/17 10:53 97.6 F 72 18 129/65 95 Intake and Output 02/06/17 02/06/17 02/06/17 06:59 14:59 22:59 Intake Total 500 Balance 500 Intake: Amount of Fluid Infused ( 500 ml) Other: Weight 65.771 kg Patient Weight 02/07/17 06:59 Weight 65.771 kg General: non toxic, no distress, appears at stated age, obese Derm: no rashes, no lesions, no ulcers, no unusual ecchymoses Head: atraumatic, normocephalic, symmetric Eyes: EOMI, no lid lag, anicteric sclera, pupils equal round reactive to light ENT: no post nasal drip, no thrush , nearest patent, no pharyngeal erythema Neck: No thyromegaly, no cervical lymphadenopathy, trachea midline, supple Mouth: no lip lesion, mucus membranes moist Cardiovascular: S1S2 reg, no murmur, positive posterior tibial pulse bilateral, no edema , no JVD, no clubbing, no cyanosis, capillary refill less than 2 seconds Lungs: CTA bilateral, no rhonchi, no rales , no accessory muscle use Abdominal: soft, nontender to palpation, no guarding, no appreciable organomegaly, normal bowel sounds Ext: no gross muscle atrophy, muscle strength 5 out of 5 in all 4 extremities grossly, no contractures, Neuro: Negative Ivan-Hallpike, CN II-XI grossly intact, light touch intact all 4 extremities, finger to nose within normal limits, Psych: Alert, oriented, appropriate affect Results CBC & Chem 7: 02/06/17 12:08 02/06/17 12:08 Labs: Abnormal Lab Results - Last 24 Hours (Table) 02/06/17 02/06/17 02/06/17 Range/Units 10:57 11:11 12:08 RDW 16.6 H (11.5-15.5) % Glucose (74-99) mg/dL POC Glucose (mg/dL) 230 H (75-99) mg/dL Calcium (8.4-10.2) mg/dL Total Protein (6.3-8.2) g/dL Urine Protein Trace H (Negative) Urine Glucose (UA) 4+ H (Negative) Urine Ketones 1+ H (Negative) Ur Leukocyte Esterase Trace H (Negative) Hyaline Casts 3 H (0-2) /lpf Urine Mucus Rare H (None) /hpf 02/06/17 Range/Units 12:08 RDW (11.5-15.5) % Glucose 249 H (74-99) mg/dL POC Glucose (mg/dL) (75-99) mg/dL Calcium 10.6 H (8.4-10.2) mg/dL Total Protein 6.2 L (6.3-8.2) g/dL Urine Protein (Negative) Urine Glucose (UA) (Negative) Urine Ketones (Negative) Ur Leukocyte Esterase (Negative) Hyaline Casts (0-2) /lpf Urine Mucus (None) /hpf Comments: Normal sinus rhythm at a rate of 62, normal axis, normal interval, T-wave inversion in V2 through V4 Chest x-ray: report reviewed CT scan - abdomen: report reviewed CT Scan - head: report reviewed Thrombosis Risk Factor Assmnt - DVT/VTE Prophylaxis DVT/VTE Prophylaxis: Pharmacologic Prophylaxis ordered - Choose All That Apply Each Factor Represents 1 point: Abnormal pulmonary function (COPD), Varicose veins Each Risk Factor Represents 2 Points: Age 61-74 years Each Risk Factor Represents 3 Points: History of DVT/PE Thrombosis Risk Factor Assessment Total Risk Factor Score: 7 Thrombosis Risk Factor Assessment Level: High Risk Assessment and Plan (1) Dizziness Narrative/Plan: Probable CVA, check MRI brain, PT, OT consult, follow blood pressures, follow blood sugars, check echo and carotid Doppler Status: Acute (2) DM type 2 (diabetes mellitus, type 2) Narrative/Plan: Follow blood sugars, insulin sliding scale, Levemir, hemoglobin A1c was just checked at PCPs office and 8.3, has appointment podopediatrician on Monday Status: Chronic (3) Headache Narrative/Plan: Typical of her migraine, when necessary pain medication Status: Acute (4) Adrenal insufficiency Narrative/Plan: Stress dose steroids until acute CVA has been ruled out, if MRI negative will resume oral steroids. Status: Acute (5) Morbid obesity Narrative/Plan: Structured outpatient weight loss Status: Chronic (6) Sleep apnea Narrative/Plan: CPAP Status: Acute Plan: Chronic conditions: Hypertension, currently controlled Dyslipidemia COPD, currently controlled Fibromyalgia Osteoarthritis Surrogate decision-maker: Rashid CODE STATUS: Full DVT prophylaxis: Lovenox Discused with: Patient, family Anticipated discharge: 24-[address]: Home A total of 65 minutes was spent on the care of this complex patient more than 50 % of the time was spent in counseling and care coordination.
--- NOTE | 2017-02-06 20:46 | US ---
EXAMINATION TYPE: US carotid duplex BILAT DATE OF EXAM: 02/06/2017 COMPARISON: NONE CLINICAL HISTORY: stroke. Dizziness EXAM MEASUREMENTS: RIGHT: Peak Systolic Velocity (PSV) cm/sec ----- Right CCA: 60.3 ----- Right ICA: 80.1 ----- Right ECA: 108.6 ICA/CCA ratio: 1.3 RIGHT: End Diastole cm/sec ----- Right CCA: 10.9 ----- Right ICA: 15.3 ----- Right ECA: 8.9 LEFT: Peak Systolic Velocity (PSV) cm/sec ----- Left CCA: 61.5 ----- Left ICA: 111.3 ----- Left ECA: 52.7 ICA/CCA ratio: 1.8 LEFT: End Diastole cm/sec ----- Left CCA: 14.2 ----- Left ICA: 37.0 ----- Left ECA: 0 VERTEBRALS (direction of flow): Right Vertebral: Antegrade Left Vertebral: Antegrade No significant stenosis visualized left ICA torturous IMPRESSION: There is antegrade flow in the vertebral arteries. The images and measurements suggest c lose to 0% stenosis in both internal carotid arteries. Criteria for Assigning % of Stenosis / Diameter reduction (Estimation based on the indirect measurements of the internal carotid artery velocities (ICA PSV). 1. Normal (no stenosis)=ICA PSV < 125 cm/s: ratio < 2.0: ICA EDV<40 cm/s. 2. Less than 50% stenosis=ICA PSV < 125 cm/s: ratio < 2.0: ICA EDV<40 cm/s. 3. 50 to 69% stenosis=ICA PSV of 125 to 230 cm/s: ration 2.0 ? 4.0: ICA EDV 40-100 cm/s. 4. Greater than 70% stenosis to near occlusion= ICA PSV > 230 cm/s: ratio > 4.0: ICA EDV > 100 cm/s. 5. Near occlusion= ICA PSV velocities may be low or undetectable: variable ratio and ICA EDV. 6. Total occlusion=unable to detect flow.
[2017-02-06] MEDS ORDERED: METOPROLOL TARTRATE 50 MG TAB PO SCH (21:00)
[2017-02-06 21:02] LABS: Hemoglobin A1C 8.3 % (4.2-6.1)
--- NOTE | 2017-02-06 22:27 | MR ---
EXAMINATION TYPE: MR brain wo/w con DATE OF EXAM: 02/06/2017 COMPARISON: CT brain 02/06/2017 HISTORY: stroke, headache, dizziness CONTRAST: Performed utilizing 15 mL intravenous MultiHance gadolinium contrast. TECHNIQUE: Multiplanar, multiecho imaging on a 3.0 Juany magnet is performed through the brain. Stud y is performed within 24 hours of arrival to the hospital. The craniovertebral junction is normal. The pituitary is normal. Diffusion-weighted imaging is performed. No abnormal hyperintensity is present to suggest an acute i ntracranial infarct or acute ischemic change. There are confluent punctate areas of hyperintensity on T2 and Inversion Recovery weighted sequences which are non-specific but can be related to microvascular ischemic changes. Tiny lacunar infarct wit hin the right thalamus may be present. Ventricles and sulci are mildly prominent for the patient age. No abnormal enhancement is evident. IMPRESSIONS: 1. Confluent areas of punctate hyperintensities scattered to the periventricular and deep white matte r can be compatible some moderate microvascular ischemic change. No acute changes are identified on d iffusion imaging. 2. No acute intracranial process.
[2017-02-06 22:58] LABS: Glucose,Whole Blood 164 mg/dL (75-99)
[2017-02-06] MEDS: INSULIN DETEMIR 100 UNIT/ML 10 ML VIAL SQ SCH (22:58)
[2017-02-06] MEDS: ATORVASTATIN 20 MG TAB PO SCH (22:58)
[2017-02-06] MEDS: INSULIN LISPRO (humaLOG) 300 UNIT/3 ML VIAL SQ SCH (22:58)
[2017-02-06] MEDS: LACTOBACILLUS ACIDOPH & BULGAR 1 EACH PACKET PO SCH (23:00)
[2017-02-07] MEDS: HYDROCORTISONE SUCCINATE 100 MG/2 ML VIAL IV SCH ×4 (00:05→22:20)
[2017-02-07] MEDS: SODIUM CHLORIDE 0.9% 1,000 ML IV SCH ×3 (03:34→22:19)
[2017-02-07] MEDS: HYDROmorphone 1 MG/ML 1 ML SYRINGE IVP PRN ×4 (03:36→22:34)
[2017-02-07 06:19] LABS: Basophils % (A) 0 %; CH 26.6; Eosinophils # (A) 0.1 k/uL (0-0.7); Eosinophils % (A) 2 %; HCT 35.8 % (34.0-46.0); HDW 3.16; HGB 11.6 gm/dL (11.4-16.0); Hypochromasia Slight; Luc # (Auto) 0.17; Luc % (Auto) 2; Lymphocytes # (A) 1.3 k/uL (1.0-4.8); Lymphocytes % (A) 18 %; MCH 27.2 pg (25.0-35.0); MCHC 32.5 g/dL (31.0-37.0); MCV 83.6 fL (80.0-100.0); Mean Platelet Volume 7.8; Monocytes # (A) 0.3 k/uL (0-1.0); Monocytes % (A) 5 %; Neutrophils # (A) 5.2 k/uL (1.3-7.7); Neutrophils % (A) 73 %; RBC 4.28 m/uL (3.80-5.40); RDW 15.6 % (11.5-15.5); WBC 7.2 k/uL (3.8-10.6); WBC (Perox) 7.61
[2017-02-07 06:24] LABS: Ionized Calcium 5.3 mg/dL (4.5-5.3)
[2017-02-07 06:34] LABS: ALT 29 U/L (9-52); AST 19 U/L (14-36); Alkaline Phosphatase 51 U/L (38-126); Anion Gap 8 mmol/L; Blood Urea Nitrogen 11 mg/dL (7-17); Calcium 9.8 mg/dL (8.4-10.2); Carbon Dioxide 27 mmol/L (22-30); Chloride 103 mmol/L (98-107); Glucose 188 mg/dL (74-99); Magnesium 1.3 mg/dL (1.6-2.3); Non-African American GFR(MDRD) >60 (>60 ml/min/1.73 sqM); Potassium 4.4 mmol/L (3.5-5.1); Sodium 138 mmol/L (137-145); Total Bilirubin 1.2 mg/dL (0.2-1.3); Total Protein 5.2 g/dL (6.3-8.2)
[2017-02-07] MEDS: INSULIN LISPRO (humaLOG) 300 UNIT/3 ML VIAL SQ SCH ×4 (07:02→22:18)
[2017-02-07] MEDS: LACTOBACILLUS ACIDOPH & BULGAR 1 EACH PACKET PO SCH ×2 (08:24→22:19)
[2017-02-07] MEDS: POTASSIUM CHLORIDE ORAL LIQUID 40 MEQ/30 ML CUP PO SCH (08:24)
[2017-02-07] MEDS: LISINOPRIL 20 MG TAB PO SCH (08:24)
[2017-02-07] MEDS: ASPIRIN 81 MG CHEW PO SCH (08:24)
[2017-02-07] MEDS: amLODIPine 5 MG TAB PO SCH (08:25)
[2017-02-07] MEDS: ENOXAPARIN 40 MG/0.4 ML SYRINGE SQ SCH (08:26)
[2017-02-07] MEDS: ONDANSETRON 4 MG/2 ML VIAL IVP PRN (08:26)
[2017-02-07] MEDS: MAGNESIUM SULFATE-D5W PMX 1 GM in DEXTROSE/WATER 1 100ML.BAG IVPB SCH ×4 (09:41→15:20)
--- NOTE | 2017-02-07 11:23 | P.PN ---
Subjective Principal diagnosis: dizziness Patient is a 66-year-old female with a history of adrenal insufficiency, diabetes mellitus type 2 on once daily insulin following with endocrinology, hypertension, dyslipidemia, and obstructive sleep apnea who presents with dizziness. In the ER she reported headache, dizziness, nausea, fatigue, and groin pain. She underwent a head CT which was negative. She underwent a CT abdomen and pelvis which did not show any obstructive stones. Her laboratory analysis is essentially unremarkable. She was admitted to rule out possible posterior circulation stroke. She had a negative Ivan-Hallpike. MRI of the brain showed no acute process, carotid Dopplers were negative. Echocardiogram is pending. She is also pending physical therapy evaluation. Her TSH was slightly low T4 was normal. She reports continued dizziness, she is unable to stand without assistance, she is requiring IV pain medication she is having an increase in her groin and back pain. She is also having nausea requiring IV Zofran use. She states for staining of the bathroom she felt better. She denies any chest pain, shortness of breath, and abdominal pain. Objective - Vital Signs Vital signs: Vital Signs Temp 97.7 F 02/07/17 08:34 Pulse 58 L 02/07/17 08:34 Resp 18 02/07/17 08:34 BP 129/64 02/07/17 08:34 Pulse Ox 94 L 02/07/17 08:34 Intake & Output 02/06/17 02/07/17 02/07/17 18:59 06:59 18:59 Intake Total 510 30 10 Output Total 575 Balance 510 -545 10 Weight 65.771 kg 66.9 kg Intake: IV 10 30 10 Invasive Line 1 10 30 10 Amount of Fluid Infused ( 500 ml) Output: Urine 575 Other: Voiding Method Toilet Toilet Toilet # Voids 2 - Exam General: non toxic, mild distress, appears at stated age, obese Derm: no rashes, no lesions Head: atraumatic, normocephalic, symmetric Eyes: EOMI, no lid lag, anicteric sclera ENT: no post nasal drip, no thrush Mouth: no lip lesion, mucus membranes moist Cardiovascular: S1S2 reg, no murmur, positive posterior tibial pulse bilateral, Lungs: CTA bilateral, no rhonchi, no rales , no accessory muscle use Abdominal: soft, tenderness to palpation left groin, no guarding, no appreciable organomegaly Ext: no gross muscle atrophy, no edema, no contractures Neuro: CN II-XI grossly intact, no focal neuro deficits Psych: Alert, oriented, anxious and tearful - Labs CBC & Chem 7: 02/07/17 05:56 02/07/17 05:56 Labs: Abnormal Lab Results - Last 24 Hours (Table) 02/06/17 02/06/17 02/06/17 Range/Units 11:11 12:08 12:08 RDW 16.6 H (11.5-15.5) % Glucose 249 H (74-99) mg/dL POC Glucose (mg/dL) (75-99) mg/dL Hemoglobin A1c (4.2-6.1) % Calcium 10.6 H (8.4-10.2) mg/dL Magnesium (1.6-2.3) mg/dL Total Protein 6.2 L (6.3-8.2) g/dL Albumin (3.5-5.0) g/dL TSH (0.465-4.680) mIU/L Urine Protein Trace H (Negative) Urine Glucose (UA) 4+ H (Negative) Urine Ketones 1+ H (Negative) Ur Leukocyte Esterase Trace H (Negative) Hyaline Casts 3 H (0-2) /lpf Urine Mucus Rare H (None) /hpf 02/06/17 02/06/17 02/07/17 Range/Units 12:08 22:46 05:56 RDW 15.6 H (11.5-15.5) % Glucose (74-99) mg/dL POC Glucose (mg/dL) 164 H (75-99) mg/dL Hemoglobin A1c 8.3 H (4.2-6.1) % Calcium (8.4-10.2) mg/dL Magnesium (1.6-2.3) mg/dL Total Protein (6.3-8.2) g/dL Albumin (3.5-5.0) g/dL TSH (0.465-4.680) mIU/L Urine Protein (Negative) Urine Glucose (UA) (Negative) Urine Ketones (Negative) Ur Leukocyte Esterase (Negative) Hyaline Casts (0-2) /lpf Urine Mucus (None) /hpf 02/07/17 Range/Units 05:56 RDW (11.5-15.5) % Glucose 188 H (74-99) mg/dL POC Glucose (mg/dL) (75-99) mg/dL Hemoglobin A1c (4.2-6.1) % Calcium (8.4-10.2) mg/dL Magnesium 1.3 L (1.6-2.3) mg/dL Total Protein 5.2 L (6.3-8.2) g/dL Albumin 3.3 L (3.5-5.0) g/dL TSH 0.306 L (0.465-4.680) mIU/L Urine Protein (Negative) Urine Glucose (UA) (Negative) Urine Ketones (Negative) Ur Leukocyte Esterase (Negative) Hyaline Casts (0-2) /lpf Urine Mucus (None) /hpf Assessment and Plan (1) Dizziness Narrative/Plan: MRI of the brain negative for stroke, carotid Dopplers are negative, echocardiogram currently pending. Physical therapy and occupational therapy recommendations pending. Check orthostatic vital signs. Status: Acute (2) DM type 2 (diabetes mellitus, type 2) Narrative/Plan: Follow blood sugars, insulin sliding scale, Levemir, hemoglobin A1c was just checked at PCPs office and 8.3, has appointment vinyl top installer on Monday Status: Chronic (3) Headache Narrative/Plan: Improving, when necessary pain medication Status: Acute (4) Adrenal insufficiency Narrative/Plan: MRI of brain is negative, check orthostatic vital signs, if orthostatics are negative then IV steroids Status: Acute (5) Morbid obesity Narrative/Plan: Structured outpatient weight loss Status: Chronic (6) Sleep apnea Narrative/Plan: CPAP Status: Acute (7) Hypomagnesemia Narrative/Plan: Replaced with 4 g magnesium sulfate and recheck in a.m. Status: Acute Plan: DVT prophylaxis: Lovenox Discussed with: Patient, nursing Anticipated discharge: [address]: Home A total of 35 minutes was spent on the care of this complex patient more than 50 % of the time was spent in counseling and care coordination.
[2017-02-07 11:31] LABS: Glucose,Whole Blood 140 mg/dL (75-99)
[2017-02-07 14:23] VITALS: BMI 28.8
[2017-02-07] MEDS: HYDROcodone/APAP 10-325MG 1 EACH TAB PO PRN ×2 (15:19→22:20)
[2017-02-07 16:21] LABS: Glucose,Whole Blood 238 mg/dL (75-99)
[2017-02-07] MEDS ORDERED: ARTIFICIAL TEARS-HYPROMELLOSE DROPS 15 ML BTL BOTH EYES PRN (17:37)
[2017-02-07] MEDS ORDERED: MINERAL OIL-WHITE PETROLATUM 120 GM JAR TOPICAL PRN (17:37)
--- NOTE | 2017-02-07 19:04 | ECHOF ---
Referral Reason:stroke, clot MEASUREMENTS -------- HEIGHT: 152.4 cm WEIGHT: 66.7 kg BP: 142/73 IVSd: 1.3 cm (0.6 - 1.1) LVIDd: 4.4 cm (3.9 - 5.3) LVPWd: 1.0 cm (0.6 - 1.1) IVSs: 1.6 cm LVIDs: 3.2 cm LVPWs: 1.2 cm Ao Diam: 3.6 cm (2.0 - 3.7) AV Cusp: 1.8 cm (1.5 - 2.6) LA Diam: 3.9 cm (2.7 - 3.8) MV EXCURSION: 15.271 mm (> 18.000) MV EF SLOPE: 105 mm/s (70 - 150) EPSS: 0.2 cm MV E Fuad: 0.48 m/s MV DecT: 220 ms MV A Fuad: 0.63 m/s MV E/A Ratio: 0.76 RAP: 5.00 mmHg RVSP: 17.98 mmHg FINDINGS -------- Sinus rhythm. This was a technically adequate study. There is mild concentric left ventricular hypertrophy. Overall left ventricular systolic function is normal with, an EF between 55 - 60 %. The right ventricle is normal in size. The left atrial size is normal. The right atrial size is normal. There is mild aortic valve sclerosis. There is no evidence of aortic regurgitation. Mild mitral annular calcification present. Mild mitral regurgitation is present. Mild tricuspid regurgitation present. There is no evidence of pulmonary hypertension. The right ventricular systolic pressure, as measured by Doppler, is 17.98mmHg. There is no pulmonic regurgitation present. The aortic root size is normal. There is no pericardial effusion. CONCLUSIONS -------- 1. There is mild concentric left ventricular hypertrophy. 2. Overall left ventricular systolic function is normal with, an EF between 55 - 60 %. 3. There is mild aortic valve sclerosis. 4. Mild mitral annular calcification present. 5. Mild mitral regurgitation is present. 6. Mild tricuspid regurgitation present. 7. There is no evidence of pulmonary hypertension. 8. The right ventricular systolic pressure, as measured by Doppler, is 17.98mmHg. FAMILY NURSE: Leonor Francisco RDCS
[2017-02-07 20:37] LABS: Glucose,Whole Blood 281 mg/dL (75-99)
[2017-02-07] MEDS: INSULIN DETEMIR 100 UNIT/ML 10 ML VIAL SQ SCH (22:19)
[2017-02-07] MEDS: ATORVASTATIN 20 MG TAB PO SCH (22:19)
[2017-02-08] MEDS: HYDROmorphone 1 MG/ML 1 ML SYRINGE IVP PRN ×2 (04:32→09:25)
[2017-02-08 05:57] LABS: Glucose,Whole Blood 228 mg/dL (75-99)
[2017-02-08 06:15] LABS: CH 26.8; HCT 34.3 % (34.0-46.0); HDW 3.08; HGB 10.9 gm/dL (11.4-16.0); Hypochromasia Slight; MCH 26.8 pg (25.0-35.0); MCHC 31.8 g/dL (31.0-37.0); Mean Platelet Volume 7.5; RBC 4.08 m/uL (3.80-5.40); RDW 15.9 % (11.5-15.5); WBC 7.4 k/uL (3.8-10.6)
[2017-02-08] MEDS: INSULIN LISPRO (humaLOG) 300 UNIT/3 ML VIAL SQ SCH ×2 (07:07→11:45)
[2017-02-08 07:16] LABS: ALT 29 U/L (9-52); AST 14 U/L (14-36); Alkaline Phosphatase 54 U/L (38-126); Anion Gap 9 mmol/L; Blood Urea Nitrogen 12 mg/dL (7-17); Calcium 9.4 mg/dL (8.4-10.2); Carbon Dioxide 25 mmol/L (22-30); Chloride 105 mmol/L (98-107); Glucose 237 mg/dL (74-99); Non-African American GFR(MDRD) >60 (>60 ml/min/1.73 sqM); Potassium 3.9 mmol/L (3.5-5.1); Sodium 139 mmol/L (137-145); Total Bilirubin 0.8 mg/dL (0.2-1.3); Total Protein 5.2 g/dL (6.3-8.2)
[2017-02-08] MEDS: ENOXAPARIN 40 MG/0.4 ML SYRINGE SQ SCH (07:57)
[2017-02-08] MEDS: LACTOBACILLUS ACIDOPH & BULGAR 1 EACH PACKET PO SCH (07:57)
[2017-02-08] MEDS: amLODIPine 5 MG TAB PO SCH (07:57)
[2017-02-08] MEDS: ASPIRIN 81 MG CHEW PO SCH (07:57)
[2017-02-08] MEDS: LISINOPRIL 20 MG TAB PO SCH (07:57)
[2017-02-08] MEDS: HYDROCORTISONE SUCCINATE 100 MG/2 ML VIAL IV SCH (07:57)
[2017-02-08] MEDS: POTASSIUM CHLORIDE ORAL LIQUID 40 MEQ/30 ML CUP PO SCH (07:58)
[2017-02-08 08:11] VITALS: PULSE 88
--- NOTE | 2017-02-08 09:33 | P.PN ---
Progress Note - Text Patient seen and examined at bedside. Thinks that she might be feeling better. Will assess dizzziness when walking, if improved then discharge home today. Formal note or discharge summery to follow pending patient condition.
[2017-02-08] MEDS: SODIUM CHLORIDE 0.9% 1,000 ML IV SCH (10:37)
[2017-02-08 11:39] LABS: Glucose,Whole Blood 221 mg/dL (75-99)
[2017-02-08 12:57] VITALS: BP 146/74; TEMP 97.7
[2017-02-08] MEDS ORDERED: HYDROCORTISONE 10 MG TAB PO SCH (15:00)
--- NOTE | 2017-02-08 19:37 | P.DS ---
Providers Date of admission: 02/06/17 14:24 Expected date of discharge: 02/08/17 Attending physician: Caryn Szymanski DO Consults: None Primary care physician: Allyson Guardado MD - Discharge Diagnosis(es) (1) Dizziness Status: Acute (2) DM type 2 (diabetes mellitus, type 2) Status: Chronic (3) Headache Status: Acute (4) Adrenal insufficiency Status: Acute (5) Morbid obesity Status: Chronic (6) Sleep apnea Status: Acute (7) Hypomagnesemia Status: Acute Hospital Course: Patient is a 66-year-old female with a history of adrenal insufficiency, diabetes mellitus type 2 on once daily insulin following with endocrinology, hypertension, dyslipidemia, and obstructive sleep apnea who presents with dizziness. In the ER she reported headache, dizziness, nausea, fatigue, and groin pain. She underwent a head CT which was negative. She underwent a CT abdomen and pelvis which did not show any obstructive stones. Her laboratory analysis is essentially unremarkable. She was admitted to rule out possible posterior circulation stroke. She had a negative Whitewood-Hallpike. MRI of the brain showed no acute process, carotid Dopplers were negative. Echocardiogram was negative. Her TSH was slightly low T4 was normal. Telemetry was unremarkable. She was seen by physical therapy and her first day of admission and was too dizzy to participate however only reevaluated her and her second day she did well. Her metoprolol was held and will be restarted at 50 mg daily. She had improvement in her symptoms with IV fluid and slight elevation of her heart rate. Initially we'll stroke was ruled out she was placed on Solu-Cortef. Once acute stroke was ruled out she was resumed on her oral Cortef for her adrenal insufficiency. She was also found to have hypomagnesemia and received IV replacement, she was subsequently started on oral magnesium. She was feeling much improved on the day of discharge and was subsequently discharged home in stable condition. Dr. Guardado was called and given report. 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 I discussed with the patient that her dizziness may be secondary to polypharmacy which is being used to help control her fibromyalgia she understands this and will try to space out her home medications. She will continue to check her blood sugars twice daily and provide a log. Her hemoglobin A1c that was ordered as an outpatient was reviewed with 8.3. She had just been started on Levemir 18 units at night by her primary care provider and this will be continued on discharge. Total of 35 minutes was spent during this discharge summary. Plan - Discharge Summary New Discharge Prescriptions: New HYDROcodone/APAP 10-325MG [[place] 10-325] 1 each PO Q4H PRN #45 tab PRN Reason: Pain Metoprolol Succinate (ER) [Toprol XL] 50 mg PO DAILY #60 tab Magnesium Oxide 400 mg PO DAILY #30 tablet Continue Promethazine [Phenergan] 25 mg PO Q6HR PRN PRN Reason: Nausea Meclizine [Antivert] 25 mg PO TID PRN PRN Reason: Vertigo Atorvastatin Calcium [Lipitor] 20 mg PO HS Aspirin 81 mg PO DAILY Lisinopril [Prinivil] 20 mg PO DAILY Cholecalciferol [Vitamin D3] 1,000 unit PO DAILY@0700 Ondansetron [Zofran] 4 mg PO Q6H PRN PRN Reason: Nausea And Vomiting L.acidoph,Paracasei, B.lactis [Probiotic] 2 cap PO BID Cyclobenzaprine [Flexeril] 10 mg PO TID PRN PRN Reason: Pain Hydrocortisone [Cortef] 20 mg PO DAILY@0700 Potassium 99 mg PO DAILY metFORMIN HCL 1,000 mg PO BID amLODIPine [Norvasc] 5 mg PO DAILY Insulin Detemir [Levemir Flextouch] 18 units SQ HS Hydrocortisone [Cortef] 10 mg PO DAILY@1500 Melatonin 5 mg PO HS PRN PRN Reason: sleep Glimepiride [Amaryl] 4 mg PO DAILY@0700 #30 Discontinued Metoprolol Tartrate [Metoprolol Tartrate] 150 mg PO HS Hydrocodone/Acetaminophen [Hydrocodon-Acetaminophn 10-325] 1 tab PO Q4H PRN PRN Reason: Pain Discharge Medication List Aspirin 81 mg PO DAILY 12/01/14 [History] Atorvastatin Calcium [Lipitor] 20 mg PO HS 12/01/14 [History] Cholecalciferol [Vitamin D3] 1,000 unit PO DAILY@0700 12/01/14 [History] Lisinopril [Prinivil] 20 mg PO DAILY 12/01/14 [History] Meclizine [Antivert] 25 mg PO TID PRN 12/01/14 [History] Promethazine [Phenergan] 25 mg PO Q6HR PRN 12/01/14 [History] Cyclobenzaprine [Flexeril] 10 mg PO TID PRN 10/12/15 [History] Hydrocortisone [Cortef] 20 mg PO DAILY@0700 10/12/15 [History] L.acidoph,Paracasei, B.lactis [Probiotic] 2 cap PO BID 10/12/15 [History] Ondansetron [Zofran] 4 mg PO Q6H PRN 10/12/15 [History] Potassium 99 mg PO DAILY 10/12/15 [History] amLODIPine [Norvasc] 5 mg PO DAILY 11/17/15 [History] metFORMIN HCL 1,000 mg PO BID 11/17/15 [History] Insulin Detemir [Levemir Flextouch] 18 units SQ HS 06/23/16 [History] Hydrocortisone [Cortef] 10 mg PO DAILY@1500 01/23/17 [History] Melatonin 5 mg PO HS PRN 01/23/17 [History] Glimepiride [Amaryl] 4 mg PO DAILY@0700 #30 02/08/17 [Rx] HYDROcodone/APAP 10-325MG [[place] 10-325] 1 each PO Q4H PRN #45 tab 02/08/17 [Rx] Magnesium Oxide 400 mg PO DAILY #30 tablet 02/08/17 [Rx] Metoprolol Succinate (ER) [Toprol XL] 50 mg PO DAILY #60 tab 02/08/17 [Rx] Follow up Appointment(s)/Referral(s): Allyson Guardado MD [Primary Care Provider] - 02/13/17 5:00 pm Patient Instructions/Handouts: Dizziness (GEN) Activity/Diet/Wound Care/Special Instructions: Carb consistent diet, monitor bloog sugars twice daily. Can continue antivert as needed. Activity as tolerated. Discharge Disposition: HOME SELF-CARE Pending Studies Pending Results: None
[2017-02-09] MEDS ORDERED: HYDROCORTISONE 10 MG TAB PO SCH (07:00)
== END 2017-02-08 15:53 | disposition home or self-care (01) | DRG 149 ==
LOC: EC 10:49 → 6SEL 14:24
PROVIDERS: ADMIT Internal Medicine; ATTEND Internal Medicine
DX: R42 Dizziness and giddiness (principal); E27.40 Unspecified adrenocortical insufficiency; J98.11 Atelectasis; E66.01 Morbid (severe) obesity due to excess calories; E11.65 Type 2 diabetes mellitus with hyperglycemia; E83.42 Hypomagnesemia; J44.9 Chronic obstructive pulmonary disease, unspecified; I10 Essential (primary) hypertension; E78.5 Hyperlipidemia, unspecified; G43.909 Migraine, unspecified, not intractable, without status migrainosus; G47.33 Obstructive sleep apnea (adult) (pediatric); M79.7 Fibromyalgia; M81.0 Age-related osteoporosis without current pathological fracture; N20.0 Calculus of kidney; I83.90 Asymptomatic varicose veins of unspecified lower extremity; M19.91 Primary osteoarthritis, unspecified site; Z79.84 Long term (current) use of oral hypoglycemic drugs; Z79.82 Long term (current) use of aspirin; Z79.4 Long term (current) use of insulin; Z79.899 Other long term (current) drug therapy; Z86.73 Personal history of transient ischemic attack (TIA), and cerebral infarction without residual deficits; Z87.442 Personal history of urinary calculi; Z86.718 Personal history of other venous thrombosis and embolism; Z98.42 Cataract extraction status, left eye; Z98.41 Cataract extraction status, right eye; Z86.14 Personal history of Methicillin resistant Staphylococcus aureus infection
CPT/HCPCS: 36415; 70450; 70553; 71020; 74150; 80053; 81001; 82330; 83036; 83690; 83735; 83880; 83970; 84439; 84443; 84484; 85025; 85027; 93005; 93306; 93880; 96361; 96374; 96375; 99285

== ENCOUNTER → 2017-03-07 | Outpatient (CLI) | payer MEDICARE, BC ==
--- NOTE | 2017-03-08 09:57 | MM ---
Reason for exam: screening (asymptomatic). Last mammogram was performed 1 year and 2 months ago. History: Patient is postmenopausal. Family history of breast cancer in 2 paternal cousins at age 60. Reductions of both breasts, September 2009. Took estrogen for 30 years beginning at age 27. Physical Findings: A clinical breast exam by your physician is recommended on an annual basis and results should be correlated with mammographic findings. MG 3D Screening Mammo W/Cad Bilateral CC and MLO view(s) were taken. Prior study comparison: January 12, 2016, bilateral MG 3d screening mammo w/cad. November 07, 2014, bilateral MG screening mammo w CAD. October 10, 2013, CAD bilateral diagnostic mammogram. The breast tissue is heterogeneously dense. This may lower the sensitivity of mammography. Finding: There are typically benign round, linear calcifications in both breasts. There are benign dystrophic calcifications in the right breast. Asymmetric breast tissue in the left anterior breast, stable. There is no discrete abnormality. ASSESSMENT: Benign, BI-RAD 2 RECOMMENDATION: Routine screening mammogram of both breasts in 1 year.
== END | disposition home or self-care (01) ==
LOC: RADMAMWWP 12:46
PROVIDERS: ATTEND Family Medicine
DX: Z12.31 Encounter for screening mammogram for malignant neoplasm of breast (principal)
CPT/HCPCS: 77063; G0202

== ENCOUNTER → 2017-03-23 | Outpatient (CLI) | payer MEDICARE, BC ==
--- NOTE | 2017-03-31 12:15 | BD ---
EXAMINATION TYPE: MG DEXA appendicular skeleton. DATE OF EXAM: 03/23/2017 COMPARISON: NONE CLINICAL HISTORY: SHE IS A 66 YR OLD FEMALE: M85.80 OTHER SPECIFIC DISORDER OF BONE DENSITY Height: 59 Weight: 144 FRAX RISK QUESTIONS: Alcohol (3 or more units per day): NO Family History (Parent hip fracture): NO FXS Glucocorticoids (More than 3mos): YES (Ex: prednisone, prednisolone, methylprednisolone, dexamethasone, and hydrocortisone). History of Fracture in Adulthood: YES Secondary Osteoporosis: YES 1. Type 1 Diabetes: YES 2. Hyperthyroidism: NO 3. Menopause before 45: NO 4. Malnutrition: NO 5. Chronic liver disease: NO Rheumatoid Arthritis: NO Current Tobacco Use: NO RISK FACTORS HISTORY OF: PELVIS Fracture (Right/Left): YES, BOTH SIDES AT AGE 58 When: 58 YRS OLD Surgery to Spine YES, FUSION OF L4 AND L5 When: AT 61 YRS OLD Family History of Osteoporosis: YES, HER MOTHER, NO FX OF HIP Active: NO, IN WHEEL WALKER, Diet low in dairy products/other sources of calcium: NO Postmenopausal woman: 51 WITH SYMPTOMS, BUT TOTAL HYST AT AGE 28 Lost more than 2 inches in height since high school: YES Hyperparathyroidism: UNSURE....SCANNED LAST YR, NORMAL....RESCANNING NEXT MONTH Adrenal Insufficiency: YES, MEDICATIONS: Prednisone or other steroids: CORTEF How Lon YRS Additional Medications: INSULIN, BP MEDS, STATINS FOR CHOLESTEROL, VIT D3 Additional History: DIABETIC, RENAL, OSTEOARTHRITIS , FIBROMYALGIA, MIGRAINE SUFFER, SLEEP APNEA EXAM MEASUREMENTS: Bone mineral densitometry was performed using the bop.fm System. Bone mineral density about the L Wrist (g/cm2): 0.624 T Score values are as follows: -----Dist. R+U: -0.7 -----Prox. R+U: -0.2 -----Radius total: -0.8 Bone mineral density THIS IS HER FIRST PERIPHERAL/APPENDICULAR SCAN.... IMPRESSION: Normal (Values between +1 and -1 indicate normal bone mass). Consider repeating this study in 5 year s or sooner if there is some new clinical indication. NOTE: T-SCORE=SD OF THE YOUNG ADULT MEAN.
== END | disposition home or self-care (01) ==
LOC: RADBDWWP 13:16
PROVIDERS: ATTEND Internal Medicine Endocrinology, Diabetes & Metabolism
DX: M85.80 Other specified disorders of bone density and structure, unspecified site (principal); M89.8X9 Other specified disorders of bone, unspecified site; E11.65 Type 2 diabetes mellitus with hyperglycemia; E11.41 Type 2 diabetes mellitus with diabetic mononeuropathy; E11.649 Type 2 diabetes mellitus with hypoglycemia without coma; E27.3 Drug-induced adrenocortical insufficiency; E83.52 Hypercalcemia
CPT/HCPCS: 77081

== ENCOUNTER → 2017-05-15 | Outpatient (CLI) | payer MEDICARE, BC ==
--- NOTE | 2017-05-15 16:49 | NM ---
EXAMINATION TYPE: NM parathyroid w/spect DATE OF EXAM: 05/15/2017 COMPARISON: NONE HISTORY: Hypercalcemia TECHNIQUE: Following administration of 26.2 mCi Tc99m Sestamibi. Anterior projection images of the neck and ches t were obtained 10 minutes and 3 hours post injection. SPECT images of the neck and chest were obtai shankar and reconstructed in three axes. FINDINGS: Thyroid tracer washout: Delayed images demonstrate near-complete tracer washout from the thyroid. Parathyroid uptake: No suspicious parathyroid uptake is identified. There is normal residual uptake w ithin the salivary glands. Normal uptake: There is physiological tracer uptake in the myocardium, liver, salivary glands, and th yroid gland. IMPRESSION: 1. No suspicious uptake to suggest parathyroid adenoma
== END | disposition home or self-care (01) ==
LOC: RADNMMAIN 10:59
PROVIDERS: ATTEND Internal Medicine Endocrinology, Diabetes & Metabolism
DX: E83.42 Hypomagnesemia (principal); E21.0 Primary hyperparathyroidism
CPT/HCPCS: 78071; A9500

== ENCOUNTER 2017-07-06 19:53 | Inpatient (IN) | payer MEDICARE, BC ==
[2017-07-06] MEDS ORDERED: ONDANSETRON 4 MG/2 ML VIAL IM STA (21:16)
[2017-07-06] MEDS ORDERED: MORPHINE SULFATE 4 MG/ML SYRINGE IV STA (21:16)
[2017-07-06] MEDS ORDERED: SODIUM CHLORIDE 0.9% 500 ML IV STA (21:16)
--- NOTE | 2017-07-06 21:20 | ED ---
General Adult HPI - General Chief complaint: Weakness Stated complaint: Weakness Time Seen by Provider: 07/06/17 21:05 Source: patient, RN notes reviewed, old records reviewed Mode of arrival: wheelchair Limitations: no limitations - History of Present Illness Initial comments: 66-year-old female with history of adrenal insufficiency, insulin-dependent diabetes and fibromyalgia presents with generalized weakness. Symptoms have been progressive over the past 3 weeks. Patient denies URI symptoms. Denies cough. Denies chest pain shortness of breath. Denies abdominal pain. She did have one episode of nausea and vomiting prior to arrival. Denies diarrhea. Patient does complain of some dysuria. Denies fever or chills. Denies focal weakness. Denies rash. She has had a mild headache which is typical for her. - Related Data Home Medications Medication Instructions Recorded Confirmed Aspirin 81 mg PO DAILY 12/01/14 07/06/17 Atorvastatin Calcium [Lipitor] 20 mg PO HS 12/01/14 07/06/17 Cholecalciferol [Vitamin D3] 3,000 unit PO DAILY@0700 12/01/14 07/06/17 Lisinopril [Prinivil] 20 mg PO DAILY 12/01/14 07/06/17 Meclizine [Antivert] 25 mg PO QID PRN 12/01/14 07/06/17 Hydrocortisone [Cortef] 15 mg PO DAILY@0700 10/12/15 07/06/17 L.acidoph,Paracasei, B.lactis 2 cap PO BID 10/12/15 07/06/17 [Probiotic] Ondansetron [Zofran] 4 mg PO Q6H PRN 10/12/15 07/06/17 amLODIPine [Norvasc] 5 mg PO DAILY 11/17/15 07/06/17 Insulin Detemir [Levemir Flextouch] 24 units SQ HS 06/23/16 07/06/17 Hydrocortisone [Cortef] 10 mg PO DAILY@1500 01/23/17 07/06/17 Melatonin 5 mg PO HS PRN 01/23/17 07/06/17 Ascorbic Acid/Multivit-Min 1,000 mg PO DAILY 07/06/17 07/06/17 [Emergen-C 1,000 mg Packet] Compounding Ointment 0.5 - 1 ml TOPICAL BID PRN 07/06/17 07/06/17 Cranberry 300mg 600 mg PO DAILY 07/06/17 07/06/17 Curamin With Turmeric Oil 2 cap PO DAILY 07/06/17 07/06/17 HYDROcodone/APAP 10-325MG [[place] 1 - 2 tab PO Q4-6H PRN 07/06/17 07/06/17 10-325] Insulin Aspart [NovoLOG Flexpen] 10 units SQ AC-LUNCH 07/06/17 07/06/17 Insulin Aspart [NovoLOG Flexpen] 12 units SQ AC-BRKFST 07/06/17 07/06/17 Insulin Aspart [Novolog Flexpen] 15 unit SQ AC-SUPPER 07/06/17 07/06/17 Liquid Health Multiple 30 ml PO DAILY 07/06/17 07/06/17 Metoprolol Succinate (ER) [Toprol 50 mg PO HS 07/06/17 07/06/17 XL] Ummw-Lkcu-Fmr 6.25-5-10Mg/5Ml 5 ml PO Q6H PRN 07/06/17 07/06/17 [Phenergan VC with Codeine] Previous Rx's Medication Instructions Recorded Magnesium Oxide 400 mg PO DAILY #30 tablet 02/08/17 Allergies Allergy/AdvReac Type Severity Reaction Status Date / Time butorphanol tartrate Allergy BLISTERS Verified 07/06/17 21:35 [From Stadol] IN MOUTH ceftriaxone [From Rocephin] Allergy Unknown Verified 07/06/17 21:35 clarithromycin [From Biaxin] Allergy Rash/Hives Verified 07/06/17 21:35 codeine Allergy Rash/Hives Verified 07/06/17 21:35 ergotamine tartrate Allergy Unknown Verified 07/06/17 21:35 [From Cafergot] erythromycin base Allergy RASH, GI Verified 07/06/17 21:35 [From E-Mycin] SYMPTOMS ketorolac tromethamine Allergy Rash/Hives Verified 07/06/17 21:35 [From Toradol] monosodium glutamate [MSG] Allergy Nausea & Verified 07/06/17 21:35 Vomiting morphine Allergy Rash/Hives Verified 07/06/17 21:35 nalbuphine HCl [From Nubain] Allergy Nausea & Verified 07/06/17 21:35 Vomiting Penicillins Allergy Rash/Hives Verified 07/06/17 21:35 pentazocine lactate Allergy SEVERE Verified 07/06/17 21:35 [From Talwin] BLISTERS IN MOUTH pregabalin [From Lyrica] Allergy Rash/Hives Verified 07/06/17 21:35 propoxyphene HCl Allergy Rash/Hives Verified 07/06/17 21:35 [From Darvon] Sulfa (Sulfonamide Allergy Rash/Hives Verified 07/06/17 21:35 Antibiotics) tramadol Allergy Unknown Verified 07/06/17 21:35 Review of Systems ROS Statement: Those systems with pertinent positive or pertinent negative responses have been documented in the HPI. ROS Other: All systems not noted in ROS Statement are negative. Past Medical History Past Medical History: COPD, Diabetes Mellitus, Deep Vein Thrombosis (DVT), Fibromyalgia, Hyperlipidemia, Hypertension, Musculoskeletal Disorder, Osteoarthritis (OA), Sleep Apnea/CPAP/BIPAP Additional Past Medical History / Comment(s): DVT 1976; HX KIDNEY STONES; VARICOSE VEINS; USES CPAP; LT 5TH DIGIT BONE PROB; ADRENAL INSUFF, migraines History of Any Multi-Drug Resistant Organisms: None Reported, MRSA Date of last positivie culture/infection: 2012 MDRO Source:: UNKNOWN Past Surgical History: Appendectomy, Back Surgery, Bladder Surgery, Cholecystectomy, Hysterectomy, Orthopedic Surgery, Tonsillectomy Additional Past Surgical History / Comment(s): EXC TUMOR RT ARM; OVARIAN CYST EXC; NADEEN TUBES, OVARIES REMOVED; 4TH RT TOE AMPUTATION; EXC NADEEN CATARACTS; KIDNEY STONE REMOVALS Past Anesthesia/Blood Transfusion Reactions: No Reported Reaction Past Psychological History: No Psychological Hx Reported Smoking Status: Never smoker Past Alcohol Use History: Occasional Past Drug Use History: None Reported - Past Family History Father Family Medical History: No Reported History, CVA/TIA Mother Family Medical History: No Reported History Additional Family Medical History / Comment(s): MAT GRANDMOTHER FROM BLOOD CLOT General Exam Limitations: no limitations General appearance: alert, in no apparent distress Head exam: Present: atraumatic, normocephalic Eye exam: Present: normal appearance, PERRL, EOMI, other (Bilateral proptosis) ENT exam: Present: normal exam, mucous membranes dry Neck exam: Present: normal inspection. Absent: tenderness, meningismus Respiratory exam: Present: normal lung sounds bilaterally. Absent: respiratory distress, wheezes Cardiovascular Exam: Present: regular rate, normal rhythm GI/Abdominal exam: Present: soft. Absent: distended, tenderness Extremities exam: Present: normal inspection, full ROM, normal capillary refill. Absent: tenderness, calf tenderness Back exam: Present: normal inspection, full ROM. Absent: tenderness Neurological exam: Present: alert, oriented X3, CN II-XII intact. Absent: motor sensory deficit Psychiatric exam: Present: normal affect, normal mood Skin exam: Present: warm, dry, intact. Absent: cyanosis, diaphoretic Course Vital Signs 07/06/17 07/06/17 07/06/17 20:20 20:25 22:25 Temperature 97.8 F Pulse Rate 66 64 62 Respiratory 18 18 Rate Blood Pressure 138/68 144/70 155/74 O2 Sat by Pulse 98 97 97 Oximetry EKG Findings - EKG Comments: EKG Findings:: EKG normal sinus rhythm, left ventricular hypertrophy, ventricular rate 65, MD interval 144, castration 84, QTC 443, no ST segment elevation or depression Medical Decision Making - Medical Decision Making 66-year-old female presenting with generalized weakness, fatigue, and pain secondary to fibromyalgia and adrenal insufficiency. Laboratory studies including CBC and CMP are unremarkable, troponin negative, lactic acid 3.0 likely secondary to dehydration, urinalysis shows glucose and 2+ ketones again consistent with dehydration. CT of the brain is negative for any acute findings , there is an old lacunar infarct. Chest x-ray is negative for acute disease. Patient receives IV hydration for lactic acidosis and dehydration. She is started on IV Solu-Cortef as she states this has significantly improved her symptoms in the past. She will be admitted for further treatment and evaluation. Diagnosis: Dehydration, lactic acidosis, history of adrenal insufficiency. - Lab Data Result diagrams: 07/06/17 21:35 07/06/17 21:35 Lab Results 07/06/17 07/06/17 07/06/17 Range/Units 21:24 21:35 21:35 WBC 8.5 (3.8-10.6) k/uL RBC 5.08 (3.80-5.40) m/uL Hgb 13.6 (11.4-16.0) gm/dL Hct 42.6 (34.0-46.0) % MCV 83.9 (80.0-100.0) fL MCH 26.8 (25.0-35.0) pg MCHC 32.0 (31.0-37.0) g/dL RDW 15.5 (11.5-15.5) % Plt Count 234 (150-450) k/uL Neutrophils % 72 % Lymphocytes % 19 % Monocytes % 6 % Eosinophils % 1 % Basophils % 0 % Neutrophils # 6.1 (1.3-7.7) k/uL Lymphocytes # 1.6 (1.0-4.8) k/uL Monocytes # 0.5 (0-1.0) k/uL Eosinophils # 0.1 (0-0.7) k/uL Basophils # 0.0 (0-0.2) k/uL Sodium (137-145) mmol/L Potassium (3.5-5.1) mmol/L Chloride (98-107) mmol/L Carbon Dioxide (22-30) mmol/L Anion Gap mmol/L BUN (7-17) mg/dL Creatinine (0.52-1.04) mg/dL Est GFR (MDRD) Af Amer (>60 ml/min/1.73 sqM) Est GFR (MDRD) Non-Af (>60 ml/min/1.73 sqM) Glucose (74-99) mg/dL Plasma Lactic Acid Sudhir (0.7-2.0) mmol/L Calcium (8.4-10.2) mg/dL Magnesium (1.6-2.3) mg/dL Total Bilirubin (0.2-1.3) mg/dL AST (14-36) U/L ALT (9-52) U/L Alkaline Phosphatase (38-126) U/L Total Creatine Kinase 21 L (30-135) U/L CK-MB (CK-2) 0.5 (0.0-2.4) ng/mL CK-MB (CK-2) Rel Index 2.4 Troponin I <0.012 (0.000-0.034) ng/mL NT-Pro-B Natriuret Pep pg/mL Total Protein (6.3-8.2) g/dL Albumin (3.5-5.0) g/dL TSH (0.465-4.680) mIU/L Urine Color Yellow Urine Appearance Clear (Clear) Urine pH 6.0 (5.0-8.0) Ur Specific [place] 1.028 (1.001-1.035) Urine Protein Trace H (Negative) Urine Glucose (UA) 3+ H (Negative) Urine Ketones 2+ H (Negative) Urine Blood Negative (Negative) Urine Nitrite Negative (Negative) Urine Bilirubin Negative (Negative) Urine Urobilinogen <2.0 (<2.0) mg/dL Ur Leukocyte Esterase Small H (Negative) Urine RBC 2 (0-5) /hpf Urine WBC 9 H (0-5) /hpf Ur Squamous Epith Cells <1 (0-4) /hpf Hyaline Casts 3 H (0-2) /lpf Urine Mucus Rare H (None) /hpf 07/06/17 07/06/17 07/06/17 Range/Units 21:35 21:35 21:35 WBC (3.8-10.6) k/uL RBC (3.80-5.40) m/uL Hgb (11.4-16.0) gm/dL Hct (34.0-46.0) % MCV (80.0-100.0) fL MCH (25.0-35.0) pg MCHC (31.0-37.0) g/dL RDW (11.5-15.5) % Plt Count (150-450) k/uL Neutrophils % % Lymphocytes % % Monocytes % % Eosinophils % % Basophils % % Neutrophils # (1.3-7.7) k/uL Lymphocytes # (1.0-4.8) k/uL Monocytes # (0-1.0) k/uL Eosinophils # (0-0.7) k/uL Basophils # (0-0.2) k/uL Sodium 139 (137-145) mmol/L Potassium 4.3 (3.5-5.1) mmol/L Chloride 99 (98-107) mmol/L Carbon Dioxide 30 (22-30) mmol/L Anion Gap 10 mmol/L BUN 25 H (7-17) mg/dL Creatinine 0.70 (0.52-1.04) mg/dL Est GFR (MDRD) Af Amer >60 (>60 ml/min/1.73 sqM) Est GFR (MDRD) Non-Af >60 (>60 ml/min/1.73 sqM) Glucose 188 H (74-99) mg/dL Plasma Lactic Acid Sudhir 3.0 H* (0.7-2.0) mmol/L Calcium 11.1 H (8.4-10.2) mg/dL Magnesium 1.8 (1.6-2.3) mg/dL Total Bilirubin 0.8 (0.2-1.3) mg/dL AST 17 (14-36) U/L ALT 27 (9-52) U/L Alkaline Phosphatase 78 (38-126) U/L Total Creatine Kinase (30-135) U/L CK-MB (CK-2) (0.0-2.4) ng/mL CK-MB (CK-2) Rel Index Troponin I (0.000-0.034) ng/mL NT-Pro-B Natriuret Pep 213 pg/mL Total Protein 6.5 (6.3-8.2) g/dL Albumin 4.2 (3.5-5.0) g/dL TSH 0.964 (0.465-4.680) mIU/L Urine Color Urine Appearance (Clear) Urine pH (5.0-8.0) Ur Specific [place] (1.001-1.035) Urine Protein (Negative) Urine Glucose (UA) (Negative) Urine Ketones (Negative) Urine Blood (Negative) Urine Nitrite (Negative) Urine Bilirubin (Negative) Urine Urobilinogen (<2.0) mg/dL Ur Leukocyte Esterase (Negative) Urine RBC (0-5) /hpf Urine WBC (0-5) /hpf Ur Squamous Epith Cells (0-4) /hpf Hyaline Casts (0-2) /lpf Urine Mucus (None) /hpf Disposition Clinical Impression: Adrenal insufficiency, Dehydration, Lactic acidosis Disposition: ADMITTED IP TO THIS [facility] Condition: Stable Referrals: Allyson Guardado MD [Primary Care Provider] - 1-2 days Decision to Admit Reason: Admit from EC Decision Date: 07/06/17 Decision Time: 23:09
[2017-07-06] MEDS ORDERED: HYDROmorphone 0.5 MG/0.5 ML SYRINGE IVP STA ×2 (21:22→22:57)
[2017-07-06 22:00] LABS: Appearance,Urine Clear (Clear); Bilirubin,Urine Negative (Negative); Blood,Urine Negative (Negative); Color,Urine Yellow; Glucose,Urine (UA) 3+ (Negative); Hyaline Casts,Urine 3 /lpf (0-2); Leukocyte Esterase,Urine Small (Negative); Mucus,Urine Rare /hpf; Nitrite,Urine Negative (Negative); Protein,Urine Trace (Negative); RBC,Urine 2 /hpf (0-5); Specific Gravity,Urine 1.028 (1.001-1.035); Squamous Epithelial Cell,Urine <1 /hpf (0-4); Urobilinogen,Urine <2.0 mg/dL (<2.0); WBC,Urine 9 /hpf (0-5)
[2017-07-06 22:03] LABS: Basophils % (A) 0 %; Eosinophils # (A) 0.1 k/uL (0-0.7); Eosinophils % (A) 1 %; HCT 42.6 % (34.0-46.0); HGB 13.6 gm/dL (11.4-16.0); Lymphocytes # (A) 1.6 k/uL (1.0-4.8); Lymphocytes % (A) 19 %; MCH 26.8 pg (25.0-35.0); MCV 83.9 fL (80.0-100.0); Mean Platelet Volume 7.1; Monocytes # (A) 0.5 k/uL (0-1.0); Monocytes % (A) 6 %; Neutrophils # (A) 6.1 k/uL (1.3-7.7); Neutrophils % (A) 72 %; Platelet Count 234 k/uL (150-450); RBC 5.08 m/uL (3.80-5.40); RDW 15.5 % (11.5-15.5); WBC 8.5 k/uL (3.8-10.6)
[2017-07-06 22:06] LABS: Ketones,Urine 2+ (Negative)
[2017-07-06 22:09] LABS: ALT 27 U/L (9-52); AST 17 U/L (14-36); Albumin 4.2 g/dL (3.5-5.0); Alkaline Phosphatase 78 U/L (38-126); Anion Gap 10 mmol/L; Blood Urea Nitrogen 25 mg/dL (7-17); Calcium 11.1 mg/dL (8.4-10.2); Carbon Dioxide 30 mmol/L (22-30); Chloride 99 mmol/L (98-107); Glucose 188 mg/dL (74-99); Magnesium 1.8 mg/dL (1.6-2.3); Potassium 4.3 mmol/L (3.5-5.1); Sodium 139 mmol/L (137-145); Total Bilirubin 0.8 mg/dL (0.2-1.3); Total Protein 6.5 g/dL (6.3-8.2)
--- NOTE | 2017-07-06 22:10 | CT ---
EXAMINATION TYPE: CT brain wo con DATE OF EXAM: 07/06/2017 COMPARISON: 02/06/2017 HISTORY: Weakness. CT DLP: 985.3 mGycm Automated exposure control for dose reduction was used. FINDINGS: There is some cerebral cortical atrophy. There is no mass effect nor midline shift. There is no sign of intracranial hemorrhage. There is mild hypodensity in the periventricular white matter. Calvarium is intact. IMPRESSION: CEREBRAL ATROPHY AND MILD CHRONIC SMALL VESSEL ISCHEMIA. NO ACUTE ABNORMALITY. OLD RIGHT SMALL THALAM IC LACUNAR INFARCT. NO CHANGE COMPARED TO OLD EXAM.
--- NOTE | 2017-07-06 22:12 | XR ---
EXAMINATION TYPE: XR chest 2V DATE OF EXAM: 07/06/2017 COMPARISON: 02/06/2017 HISTORY: COPD. Weakness TECHNIQUE: Frontal and lateral views of the chest are obtained. FINDINGS: The heart appears enlarged. There is no heart failure. Costophrenic angles are clear. Ther e are chest leads. Thoracic aorta is atheromatous. IMPRESSION: No active cardiopulmonary disease. Mild cardiomegaly. No significant change. There is cl earing of a small right upper lobe infiltrate compared to old exam.
[2017-07-06 22:18] LABS: Creatine Kinase 21 U/L (30-135)
[2017-07-06 22:31] LABS: Creatine Kinase MB 0.5 ng/mL (0.0-2.4); Troponin I <0.012 ng/mL (0.000-0.034)
[2017-07-06] MEDS ORDERED: SODIUM CHLORIDE 0.9% 500 ML IV ONE (22:48)
[2017-07-06] MEDS ORDERED: HYDROCORTISONE SUCCINATE 100 MG/2 ML VIAL IV STA (22:57)
[2017-07-06] MEDS ORDERED: NALOXONE 0.4 MG/ML 1 ML VIAL IV PRN (23:05)
[2017-07-06] MEDS ORDERED: MECLIZINE 25 MG TAB PO PRN (23:27)
[2017-07-06] MEDS ORDERED: MELATONIN 5 MG TABLET PO PRN (23:27)
--- NOTE | 2017-07-07 00:19 | P.HPIM ---
History of Present Illness H&P Date: 07/06/17 Chief Complaint: Weakness and fatigue The patient is a 66-year-old obese female the past medical history of adrenal insufficiency, fibromyalgia, type 2 diabetes and hypertension who presents to the ER with chief complaint of progressive worsening weakness over the last 3 weeks now severe to the point where she is now unable to get up and move around. She also reports some left flank and inguinal pain and dysuria, she denies any frequency or urgency, subjective fevers chills night sweats. She does report some weight loss but is unable to quantify. Patient reports decreased oral intake of food and fluids and report some lightheadedness, she denies any chest pain shortness of air. She reports a history of kidney stones on the left and reports she has had a previous lithotripsy procedure. In the ER the patient was noted to have elevated serum lactic acid level of 3, and urinalysis positive for ketones and protein. She was subsequently recommended for admission for dehydration and concern for Adrenal crisis Past Medical History Past Medical History: COPD, Diabetes Mellitus, Deep Vein Thrombosis (DVT), Fibromyalgia, Hyperlipidemia, Hypertension, Musculoskeletal Disorder, Osteoarthritis (OA), Sleep Apnea/CPAP/BIPAP Additional Past Medical History / Comment(s): DVT 1976; HX KIDNEY STONES; VARICOSE VEINS; USES CPAP; LT 5TH DIGIT BONE PROB; ADRENAL INSUFF, migraines History of Any Multi-Drug Resistant Organisms: None Reported, MRSA Date of last positivie culture/infection: 2012 MDRO Source:: UNKNOWN Past Surgical History: Appendectomy, Back Surgery, Bladder Surgery, Cholecystectomy, Hysterectomy, Orthopedic Surgery, Tonsillectomy Additional Past Surgical History / Comment(s): EXC TUMOR RT ARM; OVARIAN CYST EXC; NADEEN TUBES, OVARIES REMOVED; 4TH RT TOE AMPUTATION; EXC NADEEN CATARACTS; KIDNEY STONE REMOVALS Past Anesthesia/Blood Transfusion Reactions: No Reported Reaction Past Psychological History: No Psychological Hx Reported Smoking Status: Never smoker Past Alcohol Use History: Occasional Past Drug Use History: None Reported - Past Family History Father Family Medical History: No Reported History, CVA/TIA Mother Family Medical History: No Reported History Additional Family Medical History / Comment(s): MAT GRANDMOTHER FROM BLOOD CLOT Medications and Allergies Home Medications Medication Instructions Recorded Confirmed Type Aspirin 81 mg PO DAILY 12/01/14 07/06/17 History Atorvastatin Calcium [Lipitor] 20 mg PO HS 12/01/14 07/06/17 History Cholecalciferol [Vitamin D3] 3,000 unit PO DAILY@0700 12/01/14 07/06/17 History Lisinopril [Prinivil] 20 mg PO DAILY 12/01/14 07/06/17 History Meclizine [Antivert] 25 mg PO QID PRN 12/01/14 07/06/17 History Hydrocortisone [Cortef] 15 mg PO DAILY@0700 10/12/15 07/06/17 History L.acidoph,Paracasei, B.lactis 2 cap PO BID 10/12/15 07/06/17 History [Probiotic] Ondansetron [Zofran] 4 mg PO Q6H PRN 10/12/15 07/06/17 History amLODIPine [Norvasc] 5 mg PO DAILY 11/17/15 07/06/17 History Insulin Detemir [Levemir Flextouch] 24 units SQ HS 06/23/16 07/06/17 History Hydrocortisone [Cortef] 10 mg PO DAILY@1500 01/23/17 07/06/17 History Melatonin 5 mg PO HS PRN 01/23/17 07/06/17 History Magnesium Oxide 400 mg PO DAILY #30 tablet 02/08/17 07/06/17 Rx Ascorbic Acid/Multivit-Min 1,000 mg PO DAILY 07/06/17 07/06/17 History [Emergen-C 1,000 mg Packet] Compounding Ointment 0.5 - 1 ml TOPICAL BID PRN 07/06/17 07/06/17 History Cranberry 300mg 600 mg PO DAILY 07/06/17 07/06/17 History Curamin With Turmeric Oil 2 cap PO DAILY 07/06/17 07/06/17 History HYDROcodone/APAP 10-325MG [[place] 1 - 2 tab PO Q4-6H PRN 07/06/17 07/06/17 History 10-325] Insulin Aspart [NovoLOG Flexpen] 10 units SQ AC-LUNCH 07/06/17 07/06/17 History Insulin Aspart [NovoLOG Flexpen] 12 units SQ AC-BRKFST 07/06/17 07/06/17 History Insulin Aspart [Novolog Flexpen] 15 unit SQ AC-SUPPER 07/06/17 07/06/17 History Liquid Health Multiple 30 ml PO DAILY 07/06/17 07/06/17 History Metoprolol Succinate (ER) [Toprol 50 mg PO HS 07/06/17 07/06/17 History XL] Eguo-Njdt-Xuf 6.25-5-10Mg/5Ml 5 ml PO Q6H PRN 07/06/17 07/06/17 History [Phenergan VC with Codeine] Allergies Allergy/AdvReac Type Severity Reaction Status Date / Time butorphanol tartrate Allergy BLISTERS Verified 07/06/17 21:35 [From Stadol] IN MOUTH ceftriaxone [From Rocephin] Allergy Unknown Verified 07/06/17 21:35 clarithromycin [From Biaxin] Allergy Rash/Hives Verified 07/06/17 21:35 codeine Allergy Rash/Hives Verified 07/06/17 21:35 ergotamine tartrate Allergy Unknown Verified 07/06/17 21:35 [From Cafergot] erythromycin base Allergy RASH, GI Verified 07/06/17 21:35 [From E-Mycin] SYMPTOMS ketorolac tromethamine Allergy Rash/Hives Verified 07/06/17 21:35 [From Toradol] monosodium glutamate [MSG] Allergy Nausea & Verified 07/06/17 21:35 Vomiting morphine Allergy Rash/Hives Verified 07/06/17 21:35 nalbuphine HCl [From Nubain] Allergy Nausea & Verified 07/06/17 21:35 Vomiting Penicillins Allergy Rash/Hives Verified 07/06/17 21:35 pentazocine lactate Allergy SEVERE Verified 07/06/17 21:35 [From Talwin] BLISTERS IN MOUTH pregabalin [From Lyrica] Allergy Rash/Hives Verified 07/06/17 21:35 propoxyphene HCl Allergy Rash/Hives Verified 07/06/17 21:35 [From Darvon] Sulfa (Sulfonamide Allergy Rash/Hives Verified 07/06/17 21:35 Antibiotics) tramadol Allergy Unknown Verified 07/06/17 21:35 Physical Exam Vitals: Vital Signs Temp Pulse Resp BP Pulse Ox 07/06/17 23:34 65 20 129/75 95 07/06/17 22:25 62 18 155/74 97 07/06/17 20:25 64 18 144/70 97 07/06/17 20:20 97.8 F 66 18 138/68 98 Intake and Output 07/06/17 07/06/17 07/07/17 14:59 22:59 06:59 Other: Weight 62.596 kg Patient Weight 07/07/17 06:59 Weight 62.596 kg Constitutional: No acute distress, conversant, pleasant Eyes: Anicteric sclerae, moist conjunctiva, no lid-lag, PERRLA ENMT: NC/AT,Oropharynx clear, no erythema, exudates Neck:Supple, FROM, no masses, or JVD, No carotid bruits; No thyromegaly Lungs: Clear to auscultation, Clear to percussion, Normal respiratory effort, no accessory muscle use Cardiovascular: Heart regular in rate and rhythm, No murmurs, gallops, or rubs no peripheral edema Abdominal: Soft Nontender, nom distended, no guarding, no rebound or rigidity, Normoactive bowel sounds No hepatomegaly, No splenomegaly, No palpable mass No abdominal wall hernia noted Skin: Normal temperature, tone, texture, turgor, No induration No subcutaneous nodules, No rash, lesions, No ulcers Extremities:No digital cyanosis No clubbing, Pedal pulses intact and symmetrical Radial pulses intact and symmetrical Normal gait and station, No calf tenderness Psychiatric: Alert and oriented to person, place and time, Appropriate affect Intact judgement Neuro: Muscles Strength 4/5 in all 4 extremities, Sensation to light touch grossly present throughout, Cranial nerves II-XII grossly intact. No focal sensory deficits Results CBC & Chem 7: 07/06/17 21:35 07/06/17 21:35 Labs: Abnormal Lab Results - Last 24 Hours (Table) 07/06/17 07/06/17 07/06/17 Range/Units 21:24 21:35 21:35 BUN 25 H (7-17) mg/dL Glucose 188 H (74-99) mg/dL Plasma Lactic Acid Sudhir (0.7-2.0) mmol/L Calcium 11.1 H (8.4-10.2) mg/dL Total Creatine Kinase 21 L (30-135) U/L Urine Protein Trace H (Negative) Urine Glucose (UA) 3+ H (Negative) Urine Ketones 2+ H (Negative) Ur Leukocyte Esterase Small H (Negative) Urine WBC 9 H (0-5) /hpf Hyaline Casts 3 H (0-2) /lpf Urine Mucus Rare H (None) /hpf 07/06/17 Range/Units 21:35 BUN (7-17) mg/dL Glucose (74-99) mg/dL Plasma Lactic Acid Sudhir 3.0 H* (0.7-2.0) mmol/L Calcium (8.4-10.2) mg/dL Total Creatine Kinase (30-135) U/L Urine Protein (Negative) Urine Glucose (UA) (Negative) Urine Ketones (Negative) Ur Leukocyte Esterase (Negative) Urine WBC (0-5) /hpf Hyaline Casts (0-2) /lpf Urine Mucus (None) /hpf Assessment and Plan (1) Dehydration Current Visit: Yes Status: Acute Code(s): E86.0 - DEHYDRATION SNOMED Code( s): 62220223 (2) Lactic acidosis Current Visit: Yes Status: Acute Code(s): E87.2 - ACIDOSIS SNOMED Code(s) : 34559662 (3) Adrenal insufficiency Current Visit: Yes Status: Chronic Code(s): E27.40 - UNSPECIFIED ADRENOCORTICAL INSUFFICIENCY SNOMED Code(s): 083435985 (4) DM type 2 (diabetes mellitus, type 2) Current Visit: No Status: Chronic Code(s): E11.9 - TYPE 2 DIABETES MELLITUS WITHOUT COMPLICATIONS SNOMED Code(s): 70076960 Plan: The patient is placed on observation anticipated less than 2 midnight stay for acute dehydration on clinical exam with positive urine ketones. Concern for adrenal insufficiency given her presentation of generalized fatigue and a history of adrenal insufficiency previously on Solu-Cortef. We'll check a TSH serum cortisol level and continue IV Solu-Cortef we'll also continue fluids and resume her home medications with diabetic diet and home insulin regimen. Treat supportively with antiemetics and [place] for pain. We'll continue to monitor clinical course
[2017-07-07] MEDS: SODIUM CHLORIDE 0.9% 1,000 ML IV SCH ×3 (00:32→15:55)
[2017-07-07 00:40] LABS: Glucose,Whole Blood 139 mg/dL (75-99)
[2017-07-07] MEDS: HYDROcodone/APAP 10-325MG 1 EACH TAB PO PRN ×2 (00:55→06:23)
[2017-07-07 02:25] LABS: Partial Thromboplastin Time 18.8 sec (22.0-30.0)
[2017-07-07] MEDS: CHOLECALCIFEROL 1,000 UNIT TAB PO SCH (06:23)
[2017-07-07 07:43] LABS: Glucose,Whole Blood 199 mg/dL (75-99)
[2017-07-07] MEDS: HYDROCORTISONE SUCCINATE 100 MG/2 ML VIAL IV SCH ×2 (08:58→21:00)
[2017-07-07] MEDS: MAGNESIUM OXIDE 400 MG TAB PO SCH (08:59)
[2017-07-07] MEDS: amLODIPine 5 MG TAB PO SCH (08:59)
[2017-07-07] MEDS: LISINOPRIL 20 MG TAB PO SCH (08:59)
[2017-07-07] MEDS: ASPIRIN 81 MG PO SCH (08:59)
[2017-07-07] MEDS: ONDANSETRON 4 MG/2 ML VIAL IVP PRN ×2 (09:08→15:24)
[2017-07-07] MEDS: INSULIN ASPART 100 UNIT/ML 1 ML 10 ML VIAL SQ SCH ×3 (09:08→18:05)
[2017-07-07 09:15] LABS: Anion Gap 7 mmol/L; Blood Urea Nitrogen 20 mg/dL (7-17); Calcium 9.7 mg/dL (8.4-10.2); Carbon Dioxide 28 mmol/L (22-30); Chloride 102 mmol/L (98-107); Glucose 186 mg/dL (74-99); Potassium 4.6 mmol/L (3.5-5.1); Sodium 137 mmol/L (137-145)
[2017-07-07 12:17] LABS: Glucose,Whole Blood 75 mg/dL (75-99)
[2017-07-07 12:47] VITALS: BMI 26.9
--- NOTE | 2017-07-07 13:44 | P.PN ---
Progress Note - Text Progress Note Date: 07/07/17 Nursing reports that patient would like to see Dr. Oconnor as he is the one that has always seen her. We had the same issue last admission. Spoke with Dr. Ashraf who agrees to accept the patient to their service and will have Dr. Oconnor see her later today. Caryn Cali, DO
[2017-07-07] MEDS: IOHEXOL 350 MG/ML 25 ML BOTTLE (ORAL USE) PO PRN ×2 (15:47→16:45)
[2017-07-07] MEDS: HYDROmorphone 0.5 MG/0.5 ML SYRINGE IVP PRN ×2 (15:48→22:13)
--- NOTE | 2017-07-07 16:12 | PN ---
PROGRESS NOTE DATE OF SERVICE: 07/07/2017 This 66-year-old woman with a past medical history of multiple medical problems was admitted with dehydration and severe lactic acidosis. The patient is receiving IV fluids at this time. The patient is complaining of pain in the left side of the abdomen radiating from the loin into the groin. The patient also complains of generalized tiredness and weakness. The patient has a rash in the left inguinal area. There is no history of any fever, rigor, chills. Past medical history reviewed. REVIEW OF SYSTEMS: CARDIOVASCULAR SYSTEM: No angina, palpitations. RESPIRATORY SYSTEM: As mentioned earlier. GI: As mentioned earlier. : As mentioned earlier. NERVOUS SYSTEM: No numbness. Weakness present. CURRENT MEDICATIONS: The current medications are reviewed and include: 1. [place] 5 mg q.6 p.r.n. 2. Norvasc 5 mg p.o. daily. 3. Aspirin 81 mg daily. 4. Lipitor 20 mg at bedtime. 5. Vitamin D3 3000 units. 6. Heparin 5000 units b.i.d. 7. Solu-Cortef 50 mg IV b.i.d. 8. Dilaudid 0.5 IV p.r.n. 9. NovoLog scale. 10.Levemir 25 units. 11.Zestril 20 mg daily. 12.Antivert. 13.Melatonin. 14.Toprol XL. 15.B complex supplementation. PHYSICAL EXAMINATION: Patient is alert and oriented x3. Pulse 73, blood pressure 142/61, respiration 20, temperature 97.5, pulse ox 92% on 2 L. HEENT: Conjunctivae normal. Oral mucosa moist. NECK: No jugular venous distention. No carotid bruit. No lymph node enlargement. CARDIOVASCULAR SYSTEM: S1, S2 muffled. No S3. No S4. RESPIRATORY SYSTEM: Breath sounds diminished at the bases. A few rhonchi. No crackles. ABDOMEN: Soft, obese. Mild diffuse tenderness in the left lower quadrant present. Otherwise some erythema in the left groin area also present. LEGS: No edema. No swelling. NERVOUS SYSTEM: Higher functions as mentioned earlier. Moves all 4 limbs. Mild diffuse weakness. LYMPHATICS: No lymph node palpable in neck, axillae or groin. SKIN: No ulcer, rash, bleeding. LABS: CBC within normal limits. Other labs are noted. Glucose 186. Plasma lactic acid 0.9. ASSESSMENT: 1. Severe dehydration with lactic acidosis, present on admission. 2. History of hypoadrenalism and adrenal crisis. 3. Left-sided abdominal pain; rule out urolithiasis. 4. Possible urinary tract infection. 5. History of chronic obstructive pulmonary disease. 6. Diabetes mellitus, type 2. 7. History of deep vein thrombosis. 8. Fibromyalgia. 9. Hyperlipidemia. 10.Hypertension. 11.History of degenerative joint disease. 12.History of sleep apnea. 13.History of varicose veins. 14.History of Methicillin-resistant Staphylococcus aureus. 15.History of back surgery and DJD. 16.History of cholecystectomy. 17.History of hysterectomy. RECOMMENDATION AND DISCUSSION: In this 66-year-old woman who presented with multiple complex medical issues, we will monitor the patient closely, continue the current medications, continue symptomatic treatment. I would recommend continuing with IV fluids at this time. I would also recommend cultures and also recommend a CT scan of the abdomen and pelvis to rule out the possibility of urolithiasis and any other cause of abdominal pain. Otherwise , broad- spectrum IV antibiotics are recommended. I also recommend DVT prophylaxis because of the previous history of DVT. Otherwise, resume the home dose of insulins and resume the rest of the medications. Pain medications. See orders for further details. Discussed with the patient and staff at length, who understand and agree. Further recommendations to follow. DANIKAL / SAMN: [id number] / MTDD
[2017-07-07] MEDS: PANTOPRAZOLE 40 MG/10 ML VIAL IVP SCH ×2 (16:47→21:12)
[2017-07-07] MEDS: LEVOFLOXACIN 500MG-D5W PMX 500 MG in DEXTROSE/WATER 1 100ML.BAG IVPB SCH (16:48)
[2017-07-07 17:30] LABS: Glucose,Whole Blood 164 mg/dL (75-99)
--- NOTE | 2017-07-07 17:45 | CT ---
EXAMINATION TYPE: CT abdomen pelvis wo con DATE OF EXAM: 07/07/2017 COMPARISON: 02/06/2017 HISTORY: Generalized pain CT DLP: 455.3 mGycm Automated exposure control for dose reduction was used. TECHNIQUE: Helical acquisition of images was performed from the lung bases through the pelvis. FINDINGS: There is patchy linear density at the lung bases. There is small right pleural effusion. Liver shows no focal defect. There are clips from cholecystectomy. Bile ducts are not dilated. Spleen appears normal. There is no pancreatic mass. There is no adrenal mass. There are multiple small calcifications in both kidneys that measure up to 4 mm. There is no hydronephrosis. Ureters are not dilated. There is exophytic 2.5 cm cortical cyst on the anterior left kidney. There is no ascites. There is no retroperitoneal adenopathy. Abdominal aorta is atheromatous. There i s no sign of a bowel obstruction. Bladder distends smoothly. I see no intestinal wall thickening. The re is lumbar mild levoscoliosis. There is posterior multilevel fusion surgery. Appendix is not seen. There is no sign of appendicitis. IMPRESSION: NONOBSTRUCTING LEFT AND RIGHT RENAL MULTIPLE CALCULI. LEFT RENAL CORTICAL CYST. THERE IS SOME FIBROTI C CHANGES AND ATELECTASIS AT THE POSTERIOR LUNG BASES WITH SMALL RIGHT PLEURAL EFFUSION. PLEURAL FLUI D IS INCREASED COMPARED TO OLD EXAM.
[2017-07-07 18:18] LABS: Appearance,Urine Clear (Clear); Bilirubin,Urine Negative (Negative); Blood,Urine Negative (Negative); Color,Urine Light Yellow; Glucose,Urine (UA) 3+ (Negative); Leukocyte Esterase,Urine Negative (Negative); Nitrite,Urine Negative (Negative); PH, Urine 6.5 (5.0-8.0); Protein,Urine Negative (Negative); Specific Gravity,Urine 1.011 (1.001-1.035); Urobilinogen,Urine <2.0 mg/dL (<2.0)
[2017-07-07 18:37] LABS: Ketones,Urine 2+ (Negative)
[2017-07-07] MEDS: HYDROcodone/APAP 5-325MG 1 EACH TAB PO PRN (18:51)
[2017-07-07 19:03] LABS: Hemoglobin A1C 7.7 % (4.0-6.0)
[2017-07-07 20:43] LABS: Glucose,Whole Blood 87 mg/dL (75-99)
[2017-07-07] MEDS: INSULIN DETEMIR 100 UNIT/ML 10 ML VIAL SQ SCH (20:57)
[2017-07-07] MEDS: NYSTATIN 100,000 UNIT/GM POWD 15 GM TOPICAL SCH (20:58)
[2017-07-07] MEDS: HEPARIN SODIUM,PORCINE 5,000 UNIT/ML 1 ML VIAL SQ SCH (21:05)
[2017-07-07] MEDS: LACTOBACILLUS ACIDOPH & BULGAR 1 EACH PACKET PO SCH (21:09)
[2017-07-07] MEDS: ATORVASTATIN 20 MG TAB PO SCH (21:10)
[2017-07-07] MEDS: METOPROLOL SUCCINATE (ER) 50 MG TAB.ER.24H PO SCH (21:11)
[2017-07-08] MEDS: SODIUM CHLORIDE 0.9% 1,000 ML IV SCH ×2 (00:30→15:03)
[2017-07-08] MEDS: HYDROcodone/APAP 5-325MG 1 EACH TAB PO PRN ×4 (03:45→22:33)
[2017-07-08] MEDS: HYDROmorphone 0.5 MG/0.5 ML SYRINGE IVP PRN ×3 (06:02→18:45)
[2017-07-08 07:16] LABS: Glucose,Whole Blood 145 mg/dL (75-99)
[2017-07-08 08:03] LABS: Anisocytosis Slight; Basophils % (A) 0 %; Eosinophils # (A) 0.1 k/uL (0-0.7); Eosinophils % (A) 2 %; HCT 35.3 % (34.0-46.0); HGB 11.2 gm/dL (11.4-16.0); Lymphocytes # (A) 1.3 k/uL (1.0-4.8); Lymphocytes % (A) 27 %; MCH 26.8 pg (25.0-35.0); MCHC 31.6 g/dL (31.0-37.0); MCV 84.8 fL (80.0-100.0); Mean Platelet Volume 7.8; Monocytes # (A) 0.3 k/uL (0-1.0); Monocytes % (A) 6 %; Neutrophils # (A) 3.1 k/uL (1.3-7.7); Neutrophils % (A) 62 %; Platelet Count 175 k/uL (150-450); RBC 4.17 m/uL (3.80-5.40); RDW 17.4 % (11.5-15.5); WBC 4.9 k/uL (3.8-10.6)
[2017-07-08] MEDS: ASPIRIN 81 MG PO SCH (08:21)
[2017-07-08] MEDS: HYDROCORTISONE SUCCINATE 100 MG/2 ML VIAL IV SCH ×2 (08:21→22:33)
[2017-07-08] MEDS: LACTOBACILLUS ACIDOPH & BULGAR 1 EACH PACKET PO SCH ×2 (08:21→22:32)
[2017-07-08] MEDS: LISINOPRIL 20 MG TAB PO SCH (08:22)
[2017-07-08] MEDS: NYSTATIN 100,000 UNIT/GM POWD 15 GM TOPICAL SCH ×2 (08:22→22:30)
[2017-07-08] MEDS: PANTOPRAZOLE 40 MG/10 ML VIAL IVP SCH ×3 (08:22→23:55)
[2017-07-08] MEDS: MAGNESIUM OXIDE 400 MG TAB PO SCH (08:22)
[2017-07-08] MEDS: HEPARIN SODIUM,PORCINE 5,000 UNIT/ML 1 ML VIAL SQ SCH ×2 (08:22→22:33)
[2017-07-08] MEDS: amLODIPine 5 MG TAB PO SCH (08:22)
[2017-07-08] MEDS: CHOLECALCIFEROL 1,000 UNIT TAB PO SCH (08:23)
[2017-07-08] MEDS: INSULIN ASPART 100 UNIT/ML 1 ML 10 ML VIAL SQ SCH ×3 (08:23→18:05)
[2017-07-08 08:24] LABS: Anion Gap 6 mmol/L; Blood Urea Nitrogen 12 mg/dL (7-17); Calcium 9.5 mg/dL (8.4-10.2); Carbon Dioxide 29 mmol/L (22-30); Chloride 105 mmol/L (98-107); Glucose 125 mg/dL (74-99); Potassium 3.9 mmol/L (3.5-5.1); Sodium 140 mmol/L (137-145)
[2017-07-08] MEDS: LEVOFLOXACIN 500MG-D5W PMX 500 MG in DEXTROSE/WATER 1 100ML.BAG IVPB SCH (10:35)
[2017-07-08 12:09] LABS: Glucose,Whole Blood 101 mg/dL (75-99)
[2017-07-08] MEDS: MULTIVITAMINS, THERA 1 EACH TAB PO SCH (12:29)
[2017-07-08] MEDS ORDERED: VANCOMYCIN IV PER PHARMACY 1 EACH MISC MISCELLANE PRN (14:58)
[2017-07-08 15:12] LABS: Glucose,Whole Blood 202 mg/dL (75-99)
[2017-07-08] MEDS: VANCOMYCIN 1,250 MG in SODIUM CHLORIDE 0.9% 250 ML IVPB SCH ×2 (15:54→22:32)
[2017-07-08 17:46] LABS: Glucose,Whole Blood 213 mg/dL (75-99)
[2017-07-08 21:00] LABS: Glucose,Whole Blood 119 mg/dL (75-99)
[2017-07-08] MEDS: METOPROLOL SUCCINATE (ER) 50 MG TAB.ER.24H PO SCH (22:32)
[2017-07-08] MEDS: INSULIN DETEMIR 100 UNIT/ML 10 ML VIAL SQ SCH (22:33)
[2017-07-08] MEDS: ATORVASTATIN 20 MG TAB PO SCH (22:33)
[2017-07-09] MEDS: HYDROmorphone 0.5 MG/0.5 ML SYRINGE IVP PRN ×3 (01:36→22:18)
[2017-07-09] MEDS: HYDROcodone/APAP 5-325MG 1 EACH TAB PO PRN ×3 (06:49→19:34)
[2017-07-09] MEDS: SODIUM CHLORIDE 0.9% 1,000 ML IV SCH ×2 (06:56→18:07)
[2017-07-09 07:15] LABS: Glucose,Whole Blood 196 mg/dL (75-99)
[2017-07-09 08:13] LABS: Anisocytosis Slight; Basophils % (A) 0 %; Eosinophils # (A) 0.1 k/uL (0-0.7); Eosinophils % (A) 2 %; HCT 34.7 % (34.0-46.0); HGB 11.2 gm/dL (11.4-16.0); Lymphocytes # (A) 1.3 k/uL (1.0-4.8); Lymphocytes % (A) 20 %; MCHC 32.3 g/dL (31.0-37.0); MCV 83.8 fL (80.0-100.0); Mean Platelet Volume 7.5; Monocytes # (A) 0.4 k/uL (0-1.0); Monocytes % (A) 6 %; Neutrophils # (A) 4.5 k/uL (1.3-7.7); Neutrophils % (A) 70 %; Platelet Count 187 k/uL (150-450); RBC 4.14 m/uL (3.80-5.40); RDW 17.1 % (11.5-15.5); WBC 6.5 k/uL (3.8-10.6)
[2017-07-09] MEDS: HEPARIN SODIUM,PORCINE 5,000 UNIT/ML 1 ML VIAL SQ SCH ×2 (08:22→22:17)
[2017-07-09] MEDS: PANTOPRAZOLE 40 MG/10 ML VIAL IVP SCH ×2 (08:22→22:18)
[2017-07-09] MEDS: CHOLECALCIFEROL 1,000 UNIT TAB PO SCH (08:22)
[2017-07-09] MEDS: LEVOFLOXACIN 500MG-D5W PMX 500 MG in DEXTROSE/WATER 1 100ML.BAG IVPB SCH (08:22)
[2017-07-09] MEDS: HYDROCORTISONE SUCCINATE 100 MG/2 ML VIAL IV SCH (08:23)
[2017-07-09] MEDS: MAGNESIUM OXIDE 400 MG TAB PO SCH (08:23)
[2017-07-09] MEDS: LISINOPRIL 20 MG TAB PO SCH (08:23)
[2017-07-09] MEDS: NYSTATIN 100,000 UNIT/GM POWD 15 GM TOPICAL SCH ×2 (08:23→22:18)
[2017-07-09] MEDS: LACTOBACILLUS ACIDOPH & BULGAR 1 EACH PACKET PO SCH ×2 (08:23→22:17)
[2017-07-09] MEDS: INSULIN ASPART 100 UNIT/ML 1 ML 10 ML VIAL SQ SCH ×3 (08:23→18:06)
[2017-07-09] MEDS: ASPIRIN 81 MG PO SCH (08:23)
[2017-07-09] MEDS: amLODIPine 5 MG TAB PO SCH (08:23)
[2017-07-09 08:32] LABS: Anion Gap 8 mmol/L; Blood Urea Nitrogen 13 mg/dL (7-17); Calcium 9.5 mg/dL (8.4-10.2); Carbon Dioxide 28 mmol/L (22-30); Chloride 104 mmol/L (98-107); Glucose 160 mg/dL (74-99); Potassium 3.9 mmol/L (3.5-5.1); Sodium 140 mmol/L (137-145)
[2017-07-09] MEDS: ONDANSETRON 4 MG/2 ML VIAL IVP PRN (08:42)
--- NOTE | 2017-07-09 09:20 | PN ---
PROGRESS NOTE DATE OF SERVICE: 07/08/2017 This 66-year-old woman admitted with severe dehydration, lactose acidosis is being closely monitored. The patient also has history of [place]'s disease as well. Stress dose IV steroids have been given at this time. The patient also complaining of abdominal pain. A CT scan of the abdomen and pelvis was done yesterday which showed evidence of bilateral nephrolithiasis and which is nonobstructive and as well as fibrotic changes and atelectasis also. Of note, the blood cultures showed gram-positive cocci in cultures. The patient initially started on vancomycin at this time. PAST MEDICAL HISTORY: Reviewed. REVIEW OF SYSTEMS: CARDIOVASCULAR: As mentioned earlier. RESPIRATORY: As mentioned earlier. GI: As mentioned earlier. : No dysuria. NERVOUS SYSTEM: Diffusely weak. CURRENT MEDICATIONS: Reviewed and include: 1. [place] 5 mg q.6h p.r.n. 2. Norvasc 5 mg daily. 3. Aspirin 81 mg. 4. Lipitor 20 mg q.h.s. 5. Vitamin D3 3000 daily. 6. Heparin 5000 subcu b.i.d. 7. Solu-Cortef 50 mg IV b.i.d. 8. Dilaudid 0.5 mg IV q.6h. 9. NovoLog 12, 10 and 15 and Levemir 20 units subcu q.h.s. 10.Lactinex 1 p.o. b.i.d. 11.Levaquin 500 mg daily. 12.Zestril 20 mg. 13.Magnesium oxide 400 mg daily. 14.Antivert 25 mg q.i.d. p.r.n. 15.Melatonin 5 mg q.h.s. p.r.n. 16.Toprol-XL 50 mg q.h.s. 17.Vancomycin. 18.Multivitamins. 19.Narcan. 20.Nitrostat. 21.Zofran. 22.Protonix. 23.Vancomycin. PHYSICAL EXAM: Patient is alert, oriented x3. Pulse is 59, blood pressure 113/59, respiration 18, temperature 97.2, pulse ox 99% on room air. HEENT: Conjunctivae normal. Oral mucosa moist. NECK: No jugular venous distention. No carotid bruit. No lymph node enlargement. CARDIOVASCULAR: S1, S2. No S3, no S4. RESPIRATORY: Breath sounds diminished in the bases. A few scattered rhonchi and crackles. ABDOMEN: Soft, nontender. LEGS: No edema. No swelling. NERVOUS SYSTEM: Cushingoid appearance. LAB INVESTIGATIONS: WBC 4.9, hemoglobin 11.8, Accu-Cheks 101, 202, 213 and 119. ASSESSMENT: 1. Severe dehydration with lactic acidosis present on admission. 2. History of hypoadrenalism and adrenal crisis. 3. Left-sided abdominal pain possibly urolithiasis bilateral. 4. Possible urinary tract infection. 5. Gram-positive cocci from the blood, rule out sepsis. 6. History of chronic obstructive pulmonary disease. 7. Diabetes mellitus type 2. 8. History of DVT. 9. History of fibromyalgia. 10.Hyperlipidemia. 11.History of hypertension. 12.History of degenerative joint disease. 13.History of sleep apnea. 14.History of varicose veins. 15.History of MRSA. 16.History of back surgery and degenerative joint disease. 17.History of cholecystectomy. 18.History of hysterectomy. RECOMMENDATIONS AND DISCUSSION: I recommend to continue current management and symptomatic treatment. Otherwise continue broad spectrum IV antibiotics. Repeat a set of cultures. Monitor blood sugars closely. Repeat labs have been noted. CT scan reviewed. The patient will have outpatient appointment with Urology. There is no obstructive symptoms or findings at this time. Prognosis guarded because of multiple complex medical issues. I discussed with the patient at length who understands. Further recommendations to follow. MMODL / IJN: [id number] /
[2017-07-09 12:16] LABS: Glucose,Whole Blood 56 mg/dL (75-99)
[2017-07-09 12:37] LABS: Glucose,Whole Blood 72 mg/dL (75-99)
[2017-07-09] MEDS: MULTIVITAMINS, THERA 1 EACH TAB PO SCH (12:52)
[2017-07-09] MEDS ORDERED: MECLIZINE 12.5 MG TAB PO PRN (13:39)
[2017-07-09] MEDS: VANCOMYCIN 1,250 MG in SODIUM CHLORIDE 0.9% 250 ML IVPB SCH (14:26)
[2017-07-09] MEDS ORDERED: HYDROCORTISONE 10 MG TAB PO SCH (15:00)
[2017-07-09] MEDS: HYDROCORTISONE 10 MG TAB PO SCH (15:52)
[2017-07-09 17:19] LABS: Glucose,Whole Blood 192 mg/dL (75-99)
[2017-07-09 21:08] LABS: Glucose,Whole Blood 206 mg/dL (75-99)
[2017-07-09] MEDS: INSULIN DETEMIR 100 UNIT/ML 10 ML VIAL SQ SCH (22:17)
[2017-07-09] MEDS: ATORVASTATIN 20 MG TAB PO SCH (22:17)
[2017-07-09] MEDS: METOPROLOL SUCCINATE (ER) 50 MG TAB.ER.24H PO SCH (22:18)
[2017-07-10] MEDS: HYDROcodone/APAP 5-325MG 1 EACH TAB PO PRN ×4 (02:37→22:37)
[2017-07-10] MEDS: HYDROmorphone 0.5 MG/0.5 ML SYRINGE IVP PRN ×3 (05:55→18:34)
[2017-07-10 07:37] LABS: Glucose,Whole Blood 129 mg/dL (75-99)
[2017-07-10] MEDS ORDERED: VANCOMYCIN TROUGH DUE 1 EACH MISC MISCELLANE ONE (08:00)
[2017-07-10] MEDS: NYSTATIN 100,000 UNIT/GM POWD 15 GM TOPICAL SCH ×2 (08:01→20:42)
[2017-07-10] MEDS: HYDROCORTISONE 20 MG TAB PO SCH (08:02)
[2017-07-10] MEDS: CHOLECALCIFEROL 1,000 UNIT TAB PO SCH (08:02)
[2017-07-10] MEDS: ASPIRIN 81 MG PO SCH (08:02)
[2017-07-10] MEDS: PANTOPRAZOLE 40 MG TABLET PO SCH ×2 (08:02→20:47)
[2017-07-10] MEDS: MAGNESIUM OXIDE 400 MG TAB PO SCH (08:02)
[2017-07-10] MEDS: INSULIN ASPART 100 UNIT/ML 1 ML 10 ML VIAL SQ SCH ×3 (08:02→17:51)
[2017-07-10] MEDS: LISINOPRIL 20 MG TAB PO SCH (08:02)
[2017-07-10] MEDS: amLODIPine 5 MG TAB PO SCH (08:02)
[2017-07-10] MEDS: HEPARIN SODIUM,PORCINE 5,000 UNIT/ML 1 ML VIAL SQ SCH ×2 (08:03→20:47)
[2017-07-10] MEDS: SODIUM CHLORIDE 0.9% 1,000 ML IV SCH ×2 (08:03→20:42)
[2017-07-10 08:14] LABS: Anisocytosis Slight; Basophils # (A) 0.1 k/uL (0-0.2); Basophils % (A) 1 %; Eosinophils # (A) 0.2 k/uL (0-0.7); Eosinophils % (A) 2 %; HCT 37.2 % (34.0-46.0); HGB 12.2 gm/dL (11.4-16.0); Lymphocytes # (A) 2.1 k/uL (1.0-4.8); Lymphocytes % (A) 31 %; MCH 26.7 pg (25.0-35.0); MCHC 32.8 g/dL (31.0-37.0); MCV 81.5 fL (80.0-100.0); Mean Platelet Volume 8.3; Monocytes # (A) 0.4 k/uL (0-1.0); Monocytes % (A) 6 %; Neutrophils # (A) 3.9 k/uL (1.3-7.7); Neutrophils % (A) 59 %; Platelet Count 205 k/uL (150-450); RBC 4.56 m/uL (3.80-5.40); RDW 17.3 % (11.5-15.5); WBC 6.7 k/uL (3.8-10.6)
[2017-07-10 08:24] LABS: Anion Gap 8 mmol/L; Blood Urea Nitrogen 17 mg/dL (7-17); Calcium 10.2 mg/dL (8.4-10.2); Carbon Dioxide 28 mmol/L (22-30); Chloride 106 mmol/L (98-107); Glucose 109 mg/dL (74-99); Sodium 142 mmol/L (137-145)
[2017-07-10] MEDS: LACTOBACILLUS ACIDOPH & BULGAR 1 EACH PACKET PO SCH ×2 (08:55→22:57)
[2017-07-10] MEDS ORDERED: LEVOFLOXACIN 500 MG TAB PO SCH (09:00)
[2017-07-10 10:11] LABS: Glucose,Whole Blood 60 mg/dL (75-99)
[2017-07-10 10:11] LABS: Glucose,Whole Blood 55 mg/dL (75-99)
[2017-07-10 10:28] LABS: Glucose,Whole Blood 90 mg/dL (75-99)
[2017-07-10 11:19] LABS: Glucose,Whole Blood 63 mg/dL (75-99)
[2017-07-10 12:26] LABS: Glucose,Whole Blood 101 mg/dL (75-99)
[2017-07-10] MEDS: MULTIVITAMINS, THERA 1 EACH TAB PO SCH (12:28)
[2017-07-10] MEDS ORDERED: INSULIN ASPART 100 UNIT/ML 1 ML 10 ML VIAL SQ SCH (12:51)
[2017-07-10] MEDS: HYDROCORTISONE 10 MG TAB PO SCH (14:23)
--- NOTE | 2017-07-10 15:27 | PN ---
PROGRESS NOTE DATE OF SERVICE: 07/09/2017 This 66-year-old woman was admitted with severe dehydration, lactic acidosis as well as adrenal insufficiency, closely monitored. No chest pain. No palpitations. No fever. CT scan of abdomen is noted that showed urolithiasis. The blood cultures came back positive as coag-negative staph. EXAM: Alert and oriented x3. Pulse 59, blood pressure 130/72, respiration 18, temperature 98.6, pulse ox 94% on room air. HEENT: Conjunctivae normal. NECK: No jugular venous distention. CARDIOVASCULAR: S1, S2. RESPIRATORY: Breath sounds diminished at the bases. No rhonchi, no crackles. ABDOMEN: Soft, nontender. LEGS: No edema. NERVOUS SYSTEM: No focal deficits. LABS: WBC 6.2, hemoglobin 11.2, other labs are noted. ASSESSMENT: 1. Severe dehydration with lactic acidosis, present on admission. 2. History of hypoadrenalism and adrenal crisis. 3. Left-sided abdominal pain possibly urolithiasis bilateral. 4. Possible urinary tract infection. 5. Gram-positive cocci from blood, coag-negative staph and contaminant. 6. History of chronic obstructive pulmonary disease. 7. Diabetes mellitus type 2. 8. History of DVT. 9. History of fibromyalgia. 10.Hyperlipidemia. 11.History of hypertension. 12.History of degenerative joint disease. RECOMMENDATIONS AND DISCUSSION: This 66-year-old woman who presented with multiple complex medical issues, will monitor the patient closely. Continue the current medications, symptomatic treatment. Otherwise establish IV. Continue rest of medications and switch IV steroids to p.o. maintenance steroids. Further recommendations to follow. MMODL / IJN: [id number] /
--- NOTE | 2017-07-10 15:39 | PN ---
PROGRESS NOTE DATE OF SERVICE: 07/10/2017. This 66-year-old woman was admitted with lactic acidosis, dehydration, being closely monitored patient. The patient also had hypoglycemia at this time. No chest pain. No palpitations. No fever. EXAM: Alert and oriented x3. Pulse 63, blood pressure 136/60, respiration 18, temperature 96.5, pulse ox 94% on room air. HEENT: Conjunctivae normal. NECK: No jugular venous distention. CARDIOVASCULAR: S1, S2. RESPIRATORY: Breath sounds diminished in the bases. A few scattered rhonchi and crackles. ABDOMEN: Soft, nontender. No mass palpable. LEGS: No edema. NERVOUS SYSTEM: No focal deficits. LABS: At this time shows WBC 6.2, hemoglobin 12.2. Other labs noted. ASSESSMENT: 1. Severe dehydration, lactic acidosis present on admission. 2. History hypoadrenalism with adrenal crisis. 3. Left-sided abdominal pain possibly urolithiasis bilateral. 4. Possible urinary tract infection. 5. Gram-positive cocci in the blood, possibly coagulase negative Staph and contaminant. 6. Diabetes mellitus type 2 with hypoglycemia episodes. 7. History of chronic obstructive pulmonary disease. 8. History of DVT. 9. History of fibromyalgia. 10.Hyperlipidemia. RECOMMENDATIONS AND DISCUSSION: I recommend to continue current management and symptomatic treatment. I also recommend to cut down the dose of insulin. Increase ambulation. Continue the rest of the medications. Prognosis guarded because of multiple complex medical issues. Further recommendations to follow. MMODL / IJN: [id number] /
[2017-07-10 17:46] LABS: Glucose,Whole Blood 247 mg/dL (75-99)
[2017-07-10] MEDS: ATORVASTATIN 20 MG TAB PO SCH (20:47)
[2017-07-10] MEDS: METOPROLOL SUCCINATE (ER) 50 MG TAB.ER.24H PO SCH (20:47)
[2017-07-10 20:59] LABS: Glucose,Whole Blood 213 mg/dL (75-99)
[2017-07-10] MEDS ORDERED: INSULIN DETEMIR 100 UNIT/ML 10 ML VIAL SQ SCH (21:00)
[2017-07-11] MEDS: HYDROmorphone 0.5 MG/0.5 ML SYRINGE IVP PRN ×2 (02:26→09:58)
[2017-07-11] MEDS: CHOLECALCIFEROL 1,000 UNIT TAB PO SCH (06:41)
[2017-07-11] MEDS: HYDROCORTISONE 20 MG TAB PO SCH (06:41)
[2017-07-11] MEDS: HYDROcodone/APAP 5-325MG 1 EACH TAB PO PRN (06:45)
[2017-07-11 07:45] LABS: Glucose,Whole Blood 174 mg/dL (75-99)
[2017-07-11] MEDS: LACTOBACILLUS ACIDOPH & BULGAR 1 EACH PACKET PO SCH (07:59)
[2017-07-11] MEDS: amLODIPine 5 MG TAB PO SCH (07:59)
[2017-07-11] MEDS: ASPIRIN 81 MG PO SCH (07:59)
[2017-07-11] MEDS: MAGNESIUM OXIDE 400 MG TAB PO SCH (07:59)
[2017-07-11] MEDS: PANTOPRAZOLE 40 MG TABLET PO SCH (07:59)
[2017-07-11] MEDS: INSULIN ASPART 100 UNIT/ML 1 ML 10 ML VIAL SQ SCH ×3 (07:59→17:41)
[2017-07-11] MEDS: LISINOPRIL 20 MG TAB PO SCH (07:59)
[2017-07-11] MEDS: HEPARIN SODIUM,PORCINE 5,000 UNIT/ML 1 ML VIAL SQ SCH (07:59)
[2017-07-11] MEDS: NYSTATIN 100,000 UNIT/GM POWD 15 GM TOPICAL SCH (08:00)
[2017-07-11 08:03] VITALS: RESP 18
[2017-07-11] MEDS ORDERED: LEVOFLOXACIN 500MG-D5W PMX 500 MG in DEXTROSE/WATER 1 100ML.BAG IVPB SCH (09:00)
[2017-07-11 10:19] LABS: Basophils % (A) 1 %; Eosinophils # (A) 0.2 k/uL (0-0.7); Eosinophils % (A) 2 %; HCT 39.1 % (34.0-46.0); HGB 12.4 gm/dL (11.4-16.0); Lymphocytes # (A) 1.7 k/uL (1.0-4.8); Lymphocytes % (A) 26 %; MCH 26.7 pg (25.0-35.0); MCHC 31.8 g/dL (31.0-37.0); MCV 83.9 fL (80.0-100.0); Mean Platelet Volume 7.1; Monocytes # (A) 0.4 k/uL (0-1.0); Monocytes % (A) 6 %; Neutrophils # (A) 4.3 k/uL (1.3-7.7); Neutrophils % (A) 64 %; Platelet Count 240 k/uL (150-450); RBC 4.66 m/uL (3.80-5.40); RDW 15.8 % (11.5-15.5); WBC 6.7 k/uL (3.8-10.6)
[2017-07-11 10:42] LABS: Anion Gap 9 mmol/L; Blood Urea Nitrogen 16 mg/dL (7-17); Calcium 10.1 mg/dL (8.4-10.2); Carbon Dioxide 25 mmol/L (22-30); Chloride 101 mmol/L (98-107); Glucose 160 mg/dL (74-99); Potassium 4.5 mmol/L (3.5-5.1); Sodium 135 mmol/L (137-145)
[2017-07-11] MEDS: MULTIVITAMINS, THERA 1 EACH TAB PO SCH (11:14)
[2017-07-11] MEDS: SODIUM CHLORIDE 0.9% 1,000 ML IV SCH (11:14)
[2017-07-11 12:15] LABS: Glucose,Whole Blood 224 mg/dL (75-99)
[2017-07-11] MEDS: HYDROCORTISONE 10 MG TAB PO SCH (15:07)
[2017-07-11 15:54] VITALS: BP 125/63; PULSE 77; TEMP 97.3
[2017-07-11 17:33] LABS: Glucose,Whole Blood 159 mg/dL (75-99)
--- NOTE | 2017-07-12 08:59 | DS ---
DISCHARGE SUMMARY DATE OF SERVICE: 07/11/2017. FINAL DIAGNOSES: 1. Severe dehydration, lactic acidosis, present on admission. 2. History of hypoadrenalism with adrenal crisis. 3. Left-sided abdominal pain possibly urolithiasis bilateral. 4. Possible urinary tract infection.. 5. Gram-positive cocci in the blood, Coagulase-negative staph and contaminant. 6. Diabetes mellitus type 2 with hypoglycemic episode. 7. Chronic obstructive pulmonary disease. 8. History of deep venous thrombosis. 9. History of fibromyalgia. 10.Hyperlipidemia. DISCHARGE DISPOSITION: The patient will be discharged in stable condition with guarded prognosis. HISTORY OF PRESENT ILLNESS: This 66-year-old woman with a past medical history of multiple medical problems admitted with dehydration, lactic acidosis. The patient was given IV fluids. Patient improved significantly. Patient also treated with empiric antibiotics, but, however, cultures are negative as mentioned earlier. Overall, patient made significant improvement. On exam, vitals are stable. CARDIOVASCULAR: S1 and S2 muffled. ABDOMEN: Soft. NERVOUS SYSTEM: No focal deficits. 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 Patient will be discharged in stable condition with guarded prognosis. DISCHARGE ADVICE: 1. Diet is cardiac. 2. Activity limited until followup. 3. Follow up with primary physician, Dr. Guardado, in 2 to 3 days. Medications are as follow: 1. Norvasc 5 mg p.o. daily. 2. Ascorbic acid multivitamin 1 p.o. daily. .. 3. Aspirin 81 mg daily. 4. Lipitor 20 mg q.h.s. 5. Vitamin D3, 3000 daily. 6. Cranberry 600 mg p.o. daily. 7. [place] 10 mg q.4 p.r.n. 8. Cortef 15 mg p.o. daily and 10 mg p.o. daily. 9. NovoLog 10 and 15 units. 10.Levemir 24 units subcu q.h.s. 11.Probiotic . 12.Liquid health multiple one daily. 13.Prinivil 20 mg p.o. daily. 14.Magnesium oxide 400 mg p.o. daily. 15.Antivert 12.5 mg q.i.d. p.r.n. 16.Melatonin 5 mg. 17.Toprol XL 50 mg q.h.s. 18.Nystatin. 19.Zofran 4 mg q.6 p.r.n. 20.Protonix 40 mg p.o. b.i.d. 21.Promethazine Phenergan codeine 5 mL q.6 p.r.n. Follow up with Dr. Allyson Guardado, [facility], [facility] [place]. MMODL / IJN: [id number] / MTDD
== END 2017-07-11 18:23 | disposition home or self-care (01) | DRG 641 ==
LOC: EC 19:53 → 4MS4W 23:05
PROVIDERS: ADMIT Hospitalist; ATTEND Hospitalist
DX: E86.0 Dehydration (principal); E11.649 Type 2 diabetes mellitus with hypoglycemia without coma; E87.2 Acidosis; J44.9 Chronic obstructive pulmonary disease, unspecified; E27.1 Primary adrenocortical insufficiency; N39.0 Urinary tract infection, site not specified; M79.7 Fibromyalgia; E78.5 Hyperlipidemia, unspecified; G47.30 Sleep apnea, unspecified; I10 Essential (primary) hypertension; N20.0 Calculus of kidney; I83.90 Asymptomatic varicose veins of unspecified lower extremity; M47.9 Spondylosis, unspecified; R21 Rash and other nonspecific skin eruption; E66.9 Obesity, unspecified; Z68.27 Body mass index [BMI] 27.0-27.9, adult; Z79.82 Long term (current) use of aspirin; Z79.4 Long term (current) use of insulin; Z79.899 Other long term (current) drug therapy; Z86.718 Personal history of other venous thrombosis and embolism; Z87.442 Personal history of urinary calculi; Z86.14 Personal history of Methicillin resistant Staphylococcus aureus infection; Z90.49 Acquired absence of other specified parts of digestive tract; Z90.710 Acquired absence of both cervix and uterus; G43.909 Migraine, unspecified, not intractable, without status migrainosus; Z98.42 Cataract extraction status, left eye; Z98.41 Cataract extraction status, right eye; Z88.5 Allergy status to narcotic agent; Z88.0 Allergy status to penicillin; Z88.2 Allergy status to sulfonamides; Z88.8 Allergy status to other drugs, medicaments and biological substances; Z88.1 Allergy status to other antibiotic agents; Z91.02 Food additives allergy status
CPT/HCPCS: 70450; 71046; 74176; 80048; 80053; 80202; 81001; 81003; 82533; 82550; 82553; 83036; 83605; 83735; 83880; 84443; 84484; 85025; 85610; 85652; 85730; 86140; 87040; 87077; 87086; 87186; 93005; 96361; 96374; 96375; 96376; 99285

== ENCOUNTER → 2017-09-09 | Outpatient (CLI) | payer MEDICARE, BC ==
[2017-09-09 10:02] LABS: HCT 39.9 % (34.0-46.0); Hypochromasia Slight; MCH 27.7 pg (25.0-35.0); MCHC 32.7 g/dL (31.0-37.0); MCV 84.7 fL (80.0-100.0); Mean Platelet Volume 7.3; Platelet Count 248 k/uL (150-450); RBC 4.72 m/uL (3.80-5.40); RDW 14.7 % (11.5-15.5); WBC 9.7 k/uL (3.8-10.6)
[2017-09-09 10:18] LABS: ALT 25 U/L (9-52); AST 22 U/L (14-36); Albumin 4.2 g/dL (3.5-5.0); Alkaline Phosphatase 62 U/L (38-126); Anion Gap 13 mmol/L; Blood Urea Nitrogen 20 mg/dL (7-17); Carbon Dioxide 27 mmol/L (22-30); Chloride 104 mmol/L (98-107); Cholesterol 153 mg/dL (<200); Glucose 163 mg/dL (74-99); HDL Cholesterol 50 mg/dL (40-60); LDL Cholesterol,Calculated 60 mg/dL (0-99); Potassium 4.9 mmol/L (3.5-5.1); Sodium 144 mmol/L (137-145); Total Bilirubin 1.2 mg/dL (0.2-1.3); Total Protein 6.4 g/dL (6.3-8.2); Triglycerides 213 mg/dL (<150)
[2017-09-09 11:26] LABS: Magnesium 1.8 mg/dL (1.6-2.3)
[2017-09-09 13:59] LABS: Band Neutrophils % 1 %; Eosinophils # (M) 0.29 k/uL (0-0.7); Lymphocytes # (M) 2.43 k/uL (1.0-4.8); Monocytes # (M) 0.58 k/uL (0-1.0); Neutrophils % (M) 65 %; Nucleated Red Blood Cells 0 /100 WBC (0-0); Total Cells Counted 100
== END | disposition home or self-care (01) ==
LOC: LABWHC1 09:27
PROVIDERS: ATTEND Family Medicine
DX: E78.5 Hyperlipidemia, unspecified (principal); E86.0 Dehydration; E83.42 Hypomagnesemia; E11.65 Type 2 diabetes mellitus with hyperglycemia
CPT/HCPCS: 36415; 80053; 80061; 82043; 82570; 83735; 85027

== ENCOUNTER 2017-11-26 13:43 | Emergency (ER) | payer MEDICARE, BC ==
[2017-11-26 13:52] VITALS: RESP 18
[2017-11-26] MEDS ORDERED: SODIUM CHLORIDE 0.9% 500 ML IV STA (14:20)
[2017-11-26] MEDS ORDERED: MORPHINE SULFATE 2 MG/ML SYRINGE IVP STA (14:24)
--- NOTE | 2017-11-26 14:27 | ED ---
General Adult HPI - General Chief complaint: Abdominal Pain Stated complaint: Female Gu Time Seen by Provider: 11/26/17 14:20 Source: patient, RN notes reviewed, old records reviewed Mode of arrival: wheelchair Limitations: no limitations - History of Present Illness Initial comments: 67-year-old female presents for evaluation of right foot and right groin pain. Patient's symptoms have been on and off dull pain for the past several days, this morning the pain became constant and more severe. Starts in the right flank and radiates to her right groin. She does have a history of kidney stones and believes this may be a kidney stone. She denies hematuria but states she has had urinary frequency and dysuria. She states she felt feverish with chills yesterday. No vomiting but had some nausea. States her bowels are normal, no diarrhea. She has history of cholecystectomy and appendectomy. No upper abdominal pain. No chest pain or shortness of breath. - Related Data Home Medications Medication Instructions Recorded Confirmed Aspirin 81 mg PO DAILY 12/01/14 11/26/17 Atorvastatin Calcium [Lipitor] 20 mg PO HS 12/01/14 11/26/17 Cholecalciferol [Vitamin D3] 3,000 unit PO DAILY@0700 12/01/14 11/26/17 Lisinopril [Prinivil] 20 mg PO AC-BRKFST 12/01/14 11/26/17 Hydrocortisone [Cortef] 15 mg PO DAILY@0700 10/12/15 11/26/17 L.acidoph,Paracasei, B.lactis 2 cap PO BID 10/12/15 11/26/17 [Probiotic] Ondansetron [Zofran] 4 mg PO Q6H PRN 10/12/15 11/26/17 amLODIPine [Norvasc] 5 mg PO DAILY 11/17/15 11/26/17 Hydrocortisone [Cortef] 10 mg PO DAILY@1500 01/23/17 11/26/17 Melatonin 5 mg PO HS PRN 01/23/17 11/26/17 Ascorbic Acid/Multivit-Min 1,000 mg PO DAILY 07/06/17 11/26/17 [Emergen-C 1,000 mg Packet] Compounding Ointment 0.5 - 1 ml TOPICAL BID PRN 07/06/17 11/26/17 Cranberry 300mg 600 mg PO DAILY 07/06/17 11/26/17 Curamin With Turmeric Oil 2 cap PO DAILY 07/06/17 11/26/17 HYDROcodone/APAP 10-325MG [Votaw 1 - 2 tab PO Q4-6H PRN 07/06/17 11/26/17 10-325] Insulin Aspart [NovoLOG Flexpen] 16 units SQ AC-BRKFST 07/06/17 11/26/17 Insulin Aspart [NovoLOG Flexpen] 16 units SQ AC-LUNCH 07/06/17 11/26/17 Insulin Aspart [NovoLOG Flexpen] 18 unit SQ AC-SUPPER 07/06/17 11/26/17 Liquid Health Multiple 30 ml PO DAILY 07/06/17 11/26/17 Metoprolol Succinate (ER) [Toprol 50 mg PO HS 07/06/17 11/26/17 XL] Iqkd-Flbb-Ggs 6.25-5-10Mg/5Ml 5 ml PO Q6H PRN 07/06/17 11/26/17 [Phenergan VC with Codeine] Insulin Aspart [NovoLOG Flexpen] See Protocol SQ ACHS 11/26/17 11/26/17 Insulin Glargine,Hum.rec.anlog 36 unit SQ HS@2200 11/26/17 11/26/17 [Lantus Solostar] Meclizine [Antivert] 25 mg PO QID PRN 11/26/17 11/26/17 Previous Rx's Medication Instructions Recorded Magnesium Oxide 400 mg PO DAILY #30 tablet 02/08/17 Pantoprazole [Protonix] 40 mg PO BID #60 tablet. 07/11/17 Allergies Allergy/AdvReac Type Severity Reaction Status Date / Time butorphanol tartrate Allergy BLISTERS Verified 11/26/17 14:34 [From Stadol] IN MOUTH ceftriaxone [From Rocephin] Allergy Unknown Verified 11/26/17 14:34 clarithromycin [From Biaxin] Allergy Rash/Hives Verified 11/26/17 14:34 codeine Allergy Rash/Hives Verified 11/26/17 14:34 ergotamine tartrate Allergy Unknown Verified 11/26/17 14:34 [From Cafergot] erythromycin base Allergy RASH, GI Verified 11/26/17 14:34 [From E-Mycin] SYMPTOMS ketorolac tromethamine Allergy Rash/Hives Verified 11/26/17 14:34 [From Toradol] monosodium glutamate [MSG] Allergy Nausea & Verified 11/26/17 14:34 Vomiting morphine Allergy Rash/Hives Verified 11/26/17 14:34 nalbuphine HCl [From Nubain] Allergy Nausea & Verified 11/26/17 14:34 Vomiting Penicillins Allergy Rash/Hives Verified 11/26/17 14:34 pentazocine lactate Allergy SEVERE Verified 11/26/17 14:34 [From Talwin] BLISTERS IN MOUTH pregabalin [From Lyrica] Allergy Rash/Hives Verified 11/26/17 14:34 propoxyphene HCl Allergy Rash/Hives Verified 11/26/17 14:34 [From Darvon] Sulfa (Sulfonamide Allergy Rash/Hives Verified 11/26/17 14:34 Antibiotics) tramadol Allergy Unknown Verified 11/26/17 14:34 Review of Systems ROS Statement: Those systems with pertinent positive or pertinent negative responses have been documented in the HPI. ROS Other: All systems not noted in ROS Statement are negative. Past Medical History Past Medical History: COPD, Diabetes Mellitus, Deep Vein Thrombosis (DVT), Fibromyalgia, Hyperlipidemia, Hypertension, Musculoskeletal Disorder, Osteoarthritis (OA), Sleep Apnea/CPAP/BIPAP Additional Past Medical History / Comment(s): DVT 1976; HX KIDNEY STONES; VARICOSE VEINS; USES CPAP; LT 5TH DIGIT BONE PROB; ADRENAL INSUFF, migraines History of Any Multi-Drug Resistant Organisms: None Reported, MRSA Date of last positivie culture/infection: 2012 MDRO Source:: UNKNOWN Past Surgical History: Appendectomy, Back Surgery, Bladder Surgery, Cholecystectomy, Hysterectomy, Orthopedic Surgery, Tonsillectomy Additional Past Surgical History / Comment(s): EXC TUMOR RT ARM; OVARIAN CYST EXC; NADEEN TUBES, OVARIES REMOVED; 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 TOE AMPUTATION; EXC NADEEN CATARACTS; KIDNEY STONE REMOVALS Past Anesthesia/Blood Transfusion Reactions: No Reported Reaction Past Psychological History: No Psychological Hx Reported Smoking Status: Never smoker Past Alcohol Use History: Occasional Past Drug Use History: None Reported - Past Family History Father Family Medical History: No Reported History, CVA/TIA Mother Family Medical History: No Reported History Additional Family Medical History / Comment(s): MAT GRANDMOTHER FROM BLOOD CLOT General Exam Limitations: no limitations General appearance: alert, in no apparent distress Head exam: Present: atraumatic, normocephalic Eye exam: Present: normal appearance, PERRL ENT exam: Present: normal exam Neck exam: Present: normal inspection. Absent: tenderness, meningismus Respiratory exam: Present: normal lung sounds bilaterally. Absent: respiratory distress, wheezes Cardiovascular Exam: Present: regular rate, normal rhythm GI/Abdominal exam: Present: soft, tenderness (Mild right lower quadrant tenderness). Absent: distended Extremities exam: Present: normal inspection, normal capillary refill. Absent: pedal edema Back exam: Present: CVA tenderness (R) Neurological exam: Present: alert, oriented X3, CN II-XII intact. Absent: motor sensory deficit Psychiatric exam: Present: normal affect, normal mood Skin exam: Present: warm, dry, intact. Absent: cyanosis, diaphoretic Course Vital Signs 11/26/17 13:50 Temperature 98.2 F Pulse Rate 95 Respiratory 18 Rate Blood Pressure 134/78 O2 Sat by Pulse 97 Oximetry Medical Decision Making - Medical Decision Making 67 yo female with right flank pain and right groin pain with concern for kidney stone as patient does have known history of renal calculus. Vital signs are stable, patient is overall well-appearing. KUB is obtained, this is negative for extraction free air, or definitive calculus. Laboratory studies reveal normal white blood cell count, stable hemoglobin, normal x-rays, normal lactic acid. Urinalysis is negative for hematuria or signs of infection. CT is obtained which does show bilateral renal stones which are nonobstructing. No definitive evidence to explain patient's pain. She will continue her Votaw 10 mg at home and follow-up with her primary care physician. - Lab Data Result diagrams: 11/26/17 14:10 11/26/17 14:10 Lab Results 11/26/17 11/26/17 11/26/17 Range/Units 14:10 14:10 14:10 WBC 8.4 (3.8-10.6) k/uL RBC 4.57 (3.80-5.40) m/uL Hgb 12.4 (11.4-16.0) gm/dL Hct 38.3 (34.0-46.0) % MCV 83.9 (80.0-100.0) fL MCH 27.1 (25.0-35.0) pg MCHC 32.3 (31.0-37.0) g/dL RDW 14.9 (11.5-15.5) % Plt Count 327 (150-450) k/uL Neutrophils % 64 % Lymphocytes % 26 % Monocytes % 6 % Eosinophils % 2 % Basophils % 0 % Neutrophils # 5.4 (1.3-7.7) k/uL Lymphocytes # 2.2 (1.0-4.8) k/uL Monocytes # 0.5 (0-1.0) k/uL Eosinophils # 0.2 (0-0.7) k/uL Basophils # 0.0 (0-0.2) k/uL Hypochromasia Slight Sodium 145 (137-145) mmol/L Potassium 4.2 (3.5-5.1) mmol/L Chloride 104 (98-107) mmol/L Carbon Dioxide 27 (22-30) mmol/L Anion Gap 14 mmol/L BUN 21 H (7-17) mg/dL Creatinine 0.70 (0.52-1.04) mg/dL Est GFR (CKD-EPI)AfAm >90 (>60 ml/min/1.73 sqM) Est GFR (CKD-EPI)NonAf 89 (>60 ml/min/1.73 sqM) Glucose 147 H (74-99) mg/dL Plasma Lactic Acid Sudhir 1.3 (0.7-2.0) mmol/L Calcium 10.6 H (8.4-10.2) mg/dL Total Bilirubin 0.9 (0.2-1.3) mg/dL AST 24 (14-36) U/L ALT 31 (9-52) U/L Alkaline Phosphatase 62 (38-126) U/L Total Protein 6.2 L (6.3-8.2) g/dL Albumin 4.2 (3.5-5.0) g/dL Amylase 51 (30-110) U/L Lipase 113 (23-300) U/L Urine Color Urine Appearance (Clear) Urine pH (5.0-8.0) Ur Specific [place] (1.001-1.035) Urine Protein (Negative) Urine Glucose (UA) (Negative) Urine Ketones (Negative) Urine Blood (Negative) Urine Nitrite (Negative) Urine Bilirubin (Negative) Urine Urobilinogen (<2.0) mg/dL Ur Leukocyte Esterase (Negative) Urine RBC (0-5) /hpf Urine WBC (0-5) /hpf Ur Squamous Epith Cells (0-4) /hpf Urine Mucus (None) /hpf 11/26/17 Range/Units 14:28 WBC (3.8-10.6) k/uL RBC (3.80-5.40) m/uL Hgb (11.4-16.0) gm/dL Hct (34.0-46.0) % MCV (80.0-100.0) fL MCH (25.0-35.0) pg MCHC (31.0-37.0) g/dL RDW (11.5-15.5) % Plt Count (150-450) k/uL Neutrophils % % Lymphocytes % % Monocytes % % Eosinophils % % Basophils % % Neutrophils # (1.3-7.7) k/uL Lymphocytes # (1.0-4.8) k/uL Monocytes # (0-1.0) k/uL Eosinophils # (0-0.7) k/uL Basophils # (0-0.2) k/uL Hypochromasia Sodium (137-145) mmol/L Potassium (3.5-5.1) mmol/L Chloride (98-107) mmol/L Carbon Dioxide (22-30) mmol/L Anion Gap mmol/L BUN (7-17) mg/dL Creatinine (0.52-1.04) mg/dL Est GFR (CKD-EPI)AfAm (>60 ml/min/1.73 sqM) Est GFR (CKD-EPI)NonAf (>60 ml/min/1.73 sqM) Glucose (74-99) mg/dL Plasma Lactic Acid Sudhir (0.7-2.0) mmol/L Calcium (8.4-10.2) mg/dL Total Bilirubin (0.2-1.3) mg/dL AST (14-36) U/L ALT (9-52) U/L Alkaline Phosphatase (38-126) U/L Total Protein (6.3-8.2) g/dL Albumin (3.5-5.0) g/dL Amylase (30-110) U/L Lipase (23-300) U/L Urine Color Yellow Urine Appearance Clear (Clear) Urine pH 6.5 (5.0-8.0) Ur Specific [place] 1.022 (1.001-1.035) Urine Protein Negative (Negative) Urine Glucose (UA) Trace H (Negative) Urine Ketones Negative (Negative) Urine Blood Negative (Negative) Urine Nitrite Negative (Negative) Urine Bilirubin Negative (Negative) Urine Urobilinogen <2.0 (<2.0) mg/dL Ur Leukocyte Esterase Trace H (Negative) Urine RBC <1 (0-5) /hpf Urine WBC 1 (0-5) /hpf Ur Squamous Epith Cells <1 (0-4) /hpf Urine Mucus Rare H (None) /hpf Disposition Clinical Impression: Calculus of kidney, Abdominal pain Disposition: HOME SELF-CARE Condition: Fair Instructions: Abdominal Pain (ED) Is patient prescribed a controlled substance at d/c from ED?: No Referrals: Allyson Guardado MD [Primary Care Provider] - 1-2 days Time of Disposition: 15:47
[2017-11-26 14:32] LABS: Basophils % (A) 0 %; Eosinophils # (A) 0.2 k/uL (0-0.7); Eosinophils % (A) 2 %; HCT 38.3 % (34.0-46.0); HGB 12.4 gm/dL (11.4-16.0); Hypochromasia Slight; Lymphocytes # (A) 2.2 k/uL (1.0-4.8); Lymphocytes % (A) 26 %; MCH 27.1 pg (25.0-35.0); MCHC 32.3 g/dL (31.0-37.0); MCV 83.9 fL (80.0-100.0); Mean Platelet Volume 6.9; Monocytes # (A) 0.5 k/uL (0-1.0); Monocytes % (A) 6 %; Neutrophils # (A) 5.4 k/uL (1.3-7.7); Neutrophils % (A) 64 %; Platelet Count 327 k/uL (150-450); RBC 4.57 m/uL (3.80-5.40); RDW 14.9 % (11.5-15.5); WBC 8.4 k/uL (3.8-10.6)
--- NOTE | 2017-11-26 14:41 | XR ---
EXAMINATION TYPE: XR KUB DATE OF EXAM: 11/26/2017 2:35 PM CLINICAL HISTORY: Right-sided flank pain and history of nephrolithiasis. TECHNIQUE: Single upright image of the abdomen is obtained. COMPARISON: 10/12/2015. FINDINGS: Scattered gas is seen in non-distended small bowel loops. Gas and fecal material is seen in non-distended colon. There is no visceromegaly, pneumoperitoneum, or abnormal calcification apprecia grant. The lung bases are clear and the osseous structures are intact. Extensive heterotopic ossificati on versus myositis ossificans is seen in the region of the gluteal musculature as present on the prio r 10/12/2015. Cholecystectomy clips are noted within the right upper quadrant. Levoscoliosis of the kwaku mbar spine is noted in addition to postsurgical changes of the lower lumbar spine. IMPRESSION: Nonobstructive bowel gas pattern. No renal calculi are evident.
[2017-11-26 14:42] LABS: ALT 31 U/L (9-52); AST 24 U/L (14-36); Albumin 4.2 g/dL (3.5-5.0); Alkaline Phosphatase 62 U/L (38-126); Amylase 51 U/L (30-110); Anion Gap 14 mmol/L; Blood Urea Nitrogen 21 mg/dL (7-17); Calcium 10.6 mg/dL (8.4-10.2); Carbon Dioxide 27 mmol/L (22-30); Chloride 104 mmol/L (98-107); Glucose 147 mg/dL (74-99); Lipase 113 U/L (23-300); Potassium 4.2 mmol/L (3.5-5.1); Sodium 145 mmol/L (137-145); Total Bilirubin 0.9 mg/dL (0.2-1.3); Total Protein 6.2 g/dL (6.3-8.2)
[2017-11-26 14:58] LABS: Appearance,Urine Clear (Clear); Bilirubin,Urine Negative (Negative); Blood,Urine Negative (Negative); Color,Urine Yellow; Glucose,Urine (UA) Trace (Negative); Ketones,Urine Negative (Negative); Leukocyte Esterase,Urine Trace (Negative); Mucus,Urine Rare /hpf; Nitrite,Urine Negative (Negative); PH, Urine 6.5 (5.0-8.0); Protein,Urine Negative (Negative); RBC,Urine <1 /hpf (0-5); Specific Gravity,Urine 1.022 (1.001-1.035); Squamous Epithelial Cell,Urine <1 /hpf (0-4); Urobilinogen,Urine <2.0 mg/dL (<2.0); WBC,Urine 1 /hpf (0-5)
[2017-11-26] MEDS ORDERED: HYDROcodone/APAP 10-325MG 1 EACH TAB PO ONE (15:03)
[2017-11-26] MEDS ORDERED: ONDANSETRON 4 MG/2 ML VIAL IVP STA (15:03)
--- NOTE | 2017-11-26 15:35 | CT ---
EXAMINATION TYPE: CT abdomen pelvis wo con DATE OF EXAM: 11/26/2017 COMPARISON: 07/07/2017 HISTORY: Right flank pain and right lower quadrant pain. History of stones. CT DLP: 644 mGycm Automated exposure control for dose reduction was used. TECHNIQUE: Helical acquisition of images was performed from the lung bases through the pelvis. FINDINGS: Lack of intravenous and oral contrast limit evaluation of the hollow and solid viscera. LUNG BASES: Patchy left basilar and lingular airspace disease likely represent atelectasis. Pleural p arenchymal scarring is seen within the medial right lung base in addition to scattered areas of subse gmental atelectasis. Multiple dystrophic calcifications and coil cysts are seen within the right [address]. Vascular calcifications of the coronary arteries are partially visualized. LIVER/GB: No significant abnormality is appreciated. Cholecystectomy has been performed. Additionally there is a cholecystectomy clip involving the capsular margin of the right hepatic lobe. PANCREAS: No peripancreatic fat stranding. SPLEEN: Unremarkable unenhanced morphology ADRENALS: No nodules or thickening. KIDNEYS: There are bilateral small nonobstructing renal calculi (4 on the left measuring up to 3 mm a nd one punctate 1 to 2 mm in the right lower pole bilateral renal cysts are also seen, left greater t vázquez right. Lobulated contour the right kidney is noted. No ureteral calculi are seen.) FREE AIR: No free air is visualized RETROPERITONEAL ADENOPATHY: No greater than 1 cm short axis lymph nodes are seen within the abdomen or pelvis. REPRODUCTIVE ORGANS: No significant abnormality is seen URINARY BLADDER: Calcification is noted inferior to the urinary bladder, likely a large phlebolith i s multilevel other phleboliths within the pelvis are seen. Urinary bladder is nondistended and incomp letely evaluated. OSSEOUS STRUCTURES: Old fracture deformities are noted of the inferior pubic rami and superior pubic rami bilaterally. Postoperative changes of the lumbar spine are present.. BOWEL: There is a questionable appendicolith within a tubular structure appearing to represent the a ppendix and coming from the cecum on series 3 image 79. No periappendiceal fat stranding is identifie d. This appears stable from the prior of 07/07/2017 No enlargement of the presumed appendix is seen. N o large or small bowel dilatation. OTHER: There are bilateral small fat filled inguinal hernias. No abutting loops of small bowel. Multi ple presumably injection granulomas are seen within the gluteal regions. IMPRESSION: REDEMONSTRATION OF BILATERAL NONOBSTRUCTING RENAL CALCULI. PROBABLE APPENDICOLITH IS UNCHANGED FROM WITH NO EVIDENCE OF ACUTE APPENDICITIS. NO BOWEL OBSTRUCTION. NO FINDINGS TO CORRESPOND TO T HE PATIENT'S RIGHT FLANK PAIN.
[2017-11-26 16:09] VITALS: BP 141/69; PULSE 80; TEMP 98.5
== END 2017-11-26 16:08 | disposition home or self-care (01) ==
LOC: EC 13:43
DX: N20.0 Calculus of kidney (principal); M79.671 Pain in right foot; J44.9 Chronic obstructive pulmonary disease, unspecified; E11.9 Type 2 diabetes mellitus without complications; E78.5 Hyperlipidemia, unspecified; I10 Essential (primary) hypertension; M19.90 Unspecified osteoarthritis, unspecified site; G47.30 Sleep apnea, unspecified; Z99.89 Dependence on other enabling machines and devices; Z86.14 Personal history of Methicillin resistant Staphylococcus aureus infection; Z90.49 Acquired absence of other specified parts of digestive tract; Z90.710 Acquired absence of both cervix and uterus; Z79.82 Long term (current) use of aspirin; Z79.52 Long term (current) use of systemic steroids; Z79.4 Long term (current) use of insulin; Z79.899 Other long term (current) drug therapy; Z88.8 Allergy status to other drugs, medicaments and biological substances; Z88.1 Allergy status to other antibiotic agents; Z88.5 Allergy status to narcotic agent; Z88.6 Allergy status to analgesic agent; Z88.0 Allergy status to penicillin; Z88.2 Allergy status to sulfonamides
CPT/HCPCS: 36415; 80053; 82150; 83605; 83690; 85025; 81001; 87086; 74018; 74176; 99285; 96374; 96361; J2405

== ENCOUNTER 2017-12-08 09:03 | Inpatient (IN) | payer MEDICARE, BC ==
[2017-12-08 09:13] LABS: Glucose,Whole Blood 157 mg/dL (75-99)
[2017-12-08] MEDS ORDERED: SODIUM CHLORIDE 0.9% 1,000 ML IV STA (09:27)
[2017-12-08] MEDS ORDERED: SODIUM CHLORIDE 0.9% 500 ML IV STA (09:27)
[2017-12-08 09:44] LABS: Basophils % (A) 0 %; Eosinophils # (A) 0.3 k/uL (0-0.7); Eosinophils % (A) 3 %; HCT 34.6 % (34.0-46.0); HGB 11.2 gm/dL (11.4-16.0); Hypochromasia Slight; Lymphocytes # (A) 2.2 k/uL (1.0-4.8); Lymphocytes % (A) 26 %; MCH 26.8 pg (25.0-35.0); MCHC 32.4 g/dL (31.0-37.0); MCV 82.9 fL (80.0-100.0); Mean Platelet Volume 7.3; Monocytes # (A) 0.6 k/uL (0-1.0); Monocytes % (A) 8 %; Neutrophils % (A) 60 %; Platelet Count 244 k/uL (150-450); RBC 4.18 m/uL (3.80-5.40); WBC 8.3 k/uL (3.8-10.6)
[2017-12-08 09:57] LABS: ALT 34 U/L (9-52); AST 20 U/L (14-36); Albumin 3.7 g/dL (3.5-5.0); Alkaline Phosphatase 55 U/L (38-126); Anion Gap 11 mmol/L; Blood Urea Nitrogen 20 mg/dL (7-17); Calcium 10.1 mg/dL (8.4-10.2); Carbon Dioxide 26 mmol/L (22-30); Chloride 100 mmol/L (98-107); Glucose 166 mg/dL (74-99); Potassium 4.3 mmol/L (3.5-5.1); Sodium 137 mmol/L (137-145); Total Bilirubin 0.8 mg/dL (0.2-1.3); Total Protein 5.7 g/dL (6.3-8.2)
[2017-12-08 10:06] LABS: Prothrombin Time 9.9 sec (9.0-12.0)
[2017-12-08 10:11] LABS: Partial Thromboplastin Time 18.9 sec (22.0-30.0)
[2017-12-08 10:12] LABS: Creatine Kinase 23 U/L (30-135)
--- NOTE | 2017-12-08 10:23 | CT ---
EXAMINATION TYPE: CT brain wo con DATE OF EXAM: 12/08/2017 COMPARISON: 07/06/2017 HISTORY: Weakness CT DLP: 1118 mGycm Automated exposure control for dose reduction was used. FINDINGS: Mild generalized degenerative change the spine. A fairly diffuse areas of low-attenuation the white m atter nonspecific but also noted on the previous exam. May been the basis of remote microvascular isc hemia. No midline shift or mass effect No acute hemorrhage. Hypodensity within the basal ganglia on the right is suggestive of remote lacunar infarction. Atheros clerotic change of the vasculature. Changes of chronic sinusitis noted. There is stable pneumatizatio n of the clivus. IMPRESSION: DEGENERATIVE AND NONSPECIFIC WHITE MATTER CHANGES MOST TYPICAL REMOTE MICROVASCULAR ISCHEMIA. IF THER E IS CONCERN FOR ACUTE ISCHEMIA CORRELATE WITH MRI CLINICALLY WARRANTED. THERE IS EXTENSIVE ATHERO SCLEROTIC CHANGE OF THE VERTEBRAL BASILAR SYSTEM..
[2017-12-08 10:25] LABS: Creatine Kinase MB 0.4 ng/mL (0.0-2.4); Troponin I <0.012 ng/mL (0.000-0.034)
[2017-12-08] MEDS: ONDANSETRON 4 MG/2 ML VIAL IVP STA ×2 (10:27→15:33)
[2017-12-08 10:55] LABS: Appearance,Urine Clear (Clear); Bacteria,Urine Rare /hpf; Bilirubin,Urine Negative (Negative); Blood,Urine Negative (Negative); Color,Urine Yellow; Glucose,Urine (UA) Negative (Negative); Ketones,Urine 1+ (Negative); Leukocyte Esterase,Urine Small (Negative); Mucus,Urine Rare /hpf; Nitrite,Urine Negative (Negative); PH, Urine 5.5 (5.0-8.0); Protein,Urine Negative (Negative); RBC,Urine 1 /hpf (0-5); Specific Gravity,Urine 1.017 (1.001-1.035); Urobilinogen,Urine <2.0 mg/dL (<2.0); WBC,Urine 6 /hpf (0-5)
--- NOTE | 2017-12-08 10:57 | XR ---
EXAMINATION TYPE: XR chest 2V DATE OF EXAM: 12/08/2017 COMPARISON: Chest x-ray July 06, 2017 HISTORY: Weakness TECHNIQUE: Frontal and lateral views of the chest are obtained. FINDINGS: There is chronic parenchymal change without suspicious focal air space opacity, pleural ef fusion, or pneumothorax seen. The cardiac silhouette size is enlarged with ectatic aorta. The osse ous structures are demineralized. IMPRESSION: Cardiomegaly and chronic changes without acute pulmonary process. No significant change from prior.
[2017-12-08] MEDS: HYDROmorphone 0.5 MG/0.5 ML SYRINGE IVP STA ×2 (11:06→13:14)
--- NOTE | 2017-12-08 12:55 | ED ---
Weakness HPI - General Chief complaint: Weakness Stated complaint: Weakness Time Seen by Provider: 12/08/17 09:27 Source: patient Mode of arrival: EMS Limitations: no limitations - History of Present Illness Initial comments: 67 years old female presents with generalized weakness she has a headache but she has a chronic headache she has a history of migraines she also felt that she had a bit of a fever she denies any chest pain no shortness of breath no abdominal pain no frequency urgency dysuria she is complaining about the headache and the right shoulder pain is ongoing pains. She is also complaining about some shortness of breath and she added that this is not any more than her baseline shortness of breath. Denies any signs of TIA or CVA - Related Data Home Medications Medication Instructions Recorded Confirmed Aspirin 81 mg PO DAILY 12/01/14 12/08/17 Atorvastatin Calcium [Lipitor] 20 mg PO HS 12/01/14 12/08/17 Cholecalciferol [Vitamin D3] 3,000 unit PO DAILY@0700 12/01/14 12/08/17 Lisinopril [Prinivil] 20 mg PO AC-BRKFST 12/01/14 12/08/17 Hydrocortisone [Cortef] 15 mg PO DAILY@0700 10/12/15 12/08/17 L.acidoph,Paracasei, B.lactis 2 cap PO BID 10/12/15 12/08/17 [Probiotic] Ondansetron [Zofran] 4 mg PO Q6H PRN 10/12/15 12/08/17 amLODIPine [Norvasc] 5 mg PO DAILY 11/17/15 12/08/17 Hydrocortisone [Cortef] 10 mg PO DAILY@1500 01/23/17 12/08/17 Melatonin 5 mg PO HS PRN 01/23/17 12/08/17 Ascorbic Acid/Multivit-Min 1,000 mg PO DAILY 07/06/17 12/08/17 [Emergen-C 1,000 mg Packet] Compounding Ointment 0.5 - 1 ml TOPICAL BID PRN 07/06/17 12/08/17 Cranberry 300mg 600 mg PO DAILY 07/06/17 12/08/17 Curamin With Turmeric Oil 2 cap PO DAILY 07/06/17 12/08/17 HYDROcodone/APAP 10-325MG [[place] 1 - 2 tab PO Q4-6H PRN 07/06/17 12/08/17 10-325] Insulin Aspart [NovoLOG Flexpen] 16 units SQ AC-BRKFST 07/06/17 12/08/17 Insulin Aspart [NovoLOG Flexpen] 16 units SQ AC-LUNCH 07/06/17 12/08/17 Insulin Aspart [NovoLOG Flexpen] 18 unit SQ AC-SUPPER 07/06/17 12/08/17 Liquid Health Multiple 30 ml PO DAILY 07/06/17 12/08/17 Metoprolol Succinate (ER) [Toprol 50 mg PO HS 07/06/17 12/08/17 XL] Kuse-Ftpy-Yjv 6.25-5-10Mg/5Ml 5 ml PO Q6H PRN 07/06/17 12/08/17 [Phenergan VC with Codeine] Insulin Glargine,Hum.rec.anlog 36 unit SQ HS@2200 11/26/17 12/08/17 [Lantus Solostar] Meclizine [Antivert] 25 mg PO QID PRN 11/26/17 12/08/17 Previous Rx's Medication Instructions Recorded Magnesium Oxide 400 mg PO DAILY #30 tablet 02/08/17 Pantoprazole [Protonix] 40 mg PO BID #60 tablet. 07/11/17 Allergies Allergy/AdvReac Type Severity Reaction Status Date / Time butorphanol tartrate Allergy BLISTERS Verified 12/08/17 11:28 [From Stadol] IN MOUTH ceftriaxone [From Rocephin] Allergy Unknown Verified 12/08/17 11:28 clarithromycin [From Biaxin] Allergy Rash/Hives Verified 12/08/17 11:28 codeine Allergy Rash/Hives Verified 12/08/17 11:28 ergotamine tartrate Allergy Unknown Verified 12/08/17 11:28 [From Cafergot] erythromycin base Allergy RASH, GI Verified 12/08/17 11:28 [From E-Mycin] SYMPTOMS ketorolac tromethamine Allergy Rash/Hives Verified 12/08/17 11:28 [From Toradol] monosodium glutamate [MSG] Allergy Nausea & Verified 12/08/17 11:28 Vomiting morphine Allergy Rash/Hives Verified 12/08/17 11:28 nalbuphine HCl [From Nubain] Allergy Nausea & Verified 12/08/17 11:28 Vomiting Penicillins Allergy Rash/Hives Verified 12/08/17 11:28 pentazocine lactate Allergy SEVERE Verified 12/08/17 11:28 [From Talwin] BLISTERS IN MOUTH pregabalin [From Lyrica] Allergy Rash/Hives Verified 12/08/17 11:28 propoxyphene HCl Allergy Rash/Hives Verified 12/08/17 11:28 [From Darvon] Sulfa (Sulfonamide Allergy Rash/Hives Verified 12/08/17 11:28 Antibiotics) tramadol Allergy Unknown Verified 12/08/17 11:28 Review of Systems ROS Statement: Those systems with pertinent positive or pertinent negative responses have been documented in the HPI. ROS Other: All systems not noted in ROS Statement are negative. Past Medical History Past Medical History: COPD, Diabetes Mellitus, Deep Vein Thrombosis (DVT), Fibromyalgia, Hyperlipidemia, Hypertension, Musculoskeletal Disorder, Osteoarthritis (OA), Sleep Apnea/CPAP/BIPAP Additional Past Medical History / Comment(s): DVT 1976; HX KIDNEY STONES; VARICOSE VEINS; USES CPAP; LT 5TH DIGIT BONE PROB; ADRENAL INSUFF, migraines History of Any Multi-Drug Resistant Organisms: MRSA Date of last positivie culture/infection: 2012 MDRO Source:: UNKNOWN Past Surgical History: Appendectomy, Back Surgery, Bladder Surgery, Cholecystectomy, Hysterectomy, Orthopedic Surgery, Tonsillectomy Additional Past Surgical History / Comment(s): EXC TUMOR RT ARM; OVARIAN CYST EXC; NADEEN TUBES, OVARIES REMOVED; 4TH RT TOE AMPUTATION; EXC NADEEN CATARACTS; KIDNEY STONE REMOVALS Past Anesthesia/Blood Transfusion Reactions: No Reported Reaction Past Psychological History: No Psychological Hx Reported Smoking Status: Never smoker Past Alcohol Use History: Occasional Past Drug Use History: None Reported - Past Family History Father Family Medical History: No Reported History, CVA/TIA Mother Family Medical History: No Reported History Additional Family Medical History / Comment(s): MAT GRANDMOTHER FROM BLOOD CLOT General Exam Limitations: no limitations Course Vital Signs 12/08/17 12/08/17 09:05 10:33 Temperature 99.3 F Pulse Rate 109 H 95 Respiratory 18 18 Rate Blood Pressure 137/75 113/61 O2 Sat by Pulse 93 L 96 Oximetry Plan reassessment CBC is normal, compressive metabolic panel troponin urinalysis has some findings in there would need a culture EKG shows some mild changes comparing to her old EKG done on June this year there is ST segment depression and now V3 V4 V5 and V6 also noticed some mild T-wave inversion in lead 3 considering that and generalized weakness of her like to put her in the hospital [facility] be consulted Medical Decision Making - Lab Data Result diagrams: 12/08/17 09:16 12/08/17 09:16 Lab Results 12/08/17 12/08/17 12/08/17 Range/Units 09:10 09:16 09:16 WBC 8.3 (3.8-10.6) k/uL RBC 4.18 (3.80-5.40) m/uL Hgb 11.2 L (11.4-16.0) gm/dL Hct 34.6 (34.0-46.0) % MCV 82.9 (80.0-100.0) fL MCH 26.8 (25.0-35.0) pg MCHC 32.4 (31.0-37.0) g/dL RDW 15.0 (11.5-15.5) % Plt Count 244 (150-450) k/uL Neutrophils % 60 % Lymphocytes % 26 % Monocytes % 8 % Eosinophils % 3 % Basophils % 0 % Neutrophils # 5.0 (1.3-7.7) k/uL Lymphocytes # 2.2 (1.0-4.8) k/uL Monocytes # 0.6 (0-1.0) k/uL Eosinophils # 0.3 (0-0.7) k/uL Basophils # 0.0 (0-0.2) k/uL Hypochromasia Slight PT (9.0-12.0) sec INR (<1.2) APTT (22.0-30.0) sec Sodium (137-145) mmol/L Potassium (3.5-5.1) mmol/L Chloride (98-107) mmol/L Carbon Dioxide (22-30) mmol/L Anion Gap mmol/L BUN (7-17) mg/dL Creatinine (0.52-1.04) mg/dL Est GFR (CKD-EPI)AfAm (>60 ml/min/1.73 sqM) Est GFR (CKD-EPI)NonAf (>60 ml/min/1.73 sqM) Glucose (74-99) mg/dL POC Glucose (mg/dL) 157 H (75-99) mg/dL POC Glu Car Wash Supervisor ID James Boles Plasma Lactic Acid Sudhir (0.7-2.0) mmol/L Calcium (8.4-10.2) mg/dL Total Bilirubin (0.2-1.3) mg/dL AST (14-36) U/L ALT (9-52) U/L Alkaline Phosphatase (38-126) U/L Total Creatine Kinase 23 L (30-135) U/L CK-MB (CK-2) 0.4 (0.0-2.4) ng/mL CK-MB (CK-2) Rel Index 1.7 Troponin I <0.012 (0.000-0.034) ng/mL Total Protein (6.3-8.2) g/dL Albumin (3.5-5.0) g/dL Urine Color Urine Appearance (Clear) Urine pH (5.0-8.0) Ur Specific [place] (1.001-1.035) Urine Protein (Negative) Urine Glucose (UA) (Negative) Urine Ketones (Negative) Urine Blood (Negative) Urine Nitrite (Negative) Urine Bilirubin (Negative) Urine Urobilinogen (<2.0) mg/dL Ur Leukocyte Esterase (Negative) Urine RBC (0-5) /hpf Urine WBC (0-5) /hpf Urine Bacteria (None) /hpf Urine Mucus (None) /hpf 12/08/17 12/08/17 12/08/17 Range/Units 09:16 09:16 09:16 WBC (3.8-10.6) k/uL RBC (3.80-5.40) m/uL Hgb (11.4-16.0) gm/dL Hct (34.0-46.0) % MCV (80.0-100.0) fL MCH (25.0-35.0) pg MCHC (31.0-37.0) g/dL RDW (11.5-15.5) % Plt Count (150-450) k/uL Neutrophils % % Lymphocytes % % Monocytes % % Eosinophils % % Basophils % % Neutrophils # (1.3-7.7) k/uL Lymphocytes # (1.0-4.8) k/uL Monocytes # (0-1.0) k/uL Eosinophils # (0-0.7) k/uL Basophils # (0-0.2) k/uL Hypochromasia PT 9.9 (9.0-12.0) sec INR 1.0 (<1.2) APTT 18.9 L (22.0-30.0) sec Sodium 137 (137-145) mmol/L Potassium 4.3 (3.5-5.1) mmol/L Chloride 100 (98-107) mmol/L Carbon Dioxide 26 (22-30) mmol/L Anion Gap 11 mmol/L BUN 20 H (7-17) mg/dL Creatinine 0.70 (0.52-1.04) mg/dL Est GFR (CKD-EPI)AfAm >90 (>60 ml/min/1.73 sqM) Est GFR (CKD-EPI)NonAf 89 (>60 ml/min/1.73 sqM) Glucose 166 H (74-99) mg/dL POC Glucose (mg/dL) (75-99) mg/dL POC Glu Car Wash Supervisor ID Plasma Lactic Acid Sudhir 1.1 (0.7-2.0) mmol/L Calcium 10.1 (8.4-10.2) mg/dL Total Bilirubin 0.8 (0.2-1.3) mg/dL AST 20 (14-36) U/L ALT 34 (9-52) U/L Alkaline Phosphatase 55 (38-126) U/L Total Creatine Kinase (30-135) U/L CK-MB (CK-2) (0.0-2.4) ng/mL CK-MB (CK-2) Rel Index Troponin I (0.000-0.034) ng/mL Total Protein 5.7 L (6.3-8.2) g/dL Albumin 3.7 (3.5-5.0) g/dL Urine Color Urine Appearance (Clear) Urine pH (5.0-8.0) Ur Specific [place] (1.001-1.035) Urine Protein (Negative) Urine Glucose (UA) (Negative) Urine Ketones (Negative) Urine Blood (Negative) Urine Nitrite (Negative) Urine Bilirubin (Negative) Urine Urobilinogen (<2.0) mg/dL Ur Leukocyte Esterase (Negative) Urine RBC (0-5) /hpf Urine WBC (0-5) /hpf Urine Bacteria (None) /hpf Urine Mucus (None) /hpf 12/08/17 Range/Units 10:25 WBC (3.8-10.6) k/uL RBC (3.80-5.40) m/uL Hgb (11.4-16.0) gm/dL Hct (34.0-46.0) % MCV (80.0-100.0) fL MCH (25.0-35.0) pg MCHC (31.0-37.0) g/dL RDW (11.5-15.5) % Plt Count (150-450) k/uL Neutrophils % % Lymphocytes % % Monocytes % % Eosinophils % % Basophils % % Neutrophils # (1.3-7.7) k/uL Lymphocytes # (1.0-4.8) k/uL Monocytes # (0-1.0) k/uL Eosinophils # (0-0.7) k/uL Basophils # (0-0.2) k/uL Hypochromasia PT (9.0-12.0) sec INR (<1.2) APTT (22.0-30.0) sec Sodium (137-145) mmol/L Potassium (3.5-5.1) mmol/L Chloride (98-107) mmol/L Carbon Dioxide (22-30) mmol/L Anion Gap mmol/L BUN (7-17) mg/dL Creatinine (0.52-1.04) mg/dL Est GFR (CKD-EPI)AfAm (>60 ml/min/1.73 sqM) Est GFR (CKD-EPI)NonAf (>60 ml/min/1.73 sqM) Glucose (74-99) mg/dL POC Glucose (mg/dL) (75-99) mg/dL POC Glu Car Wash Supervisor ID Plasma Lactic Acid Sudhir (0.7-2.0) mmol/L Calcium (8.4-10.2) mg/dL Total Bilirubin (0.2-1.3) mg/dL AST (14-36) U/L ALT (9-52) U/L Alkaline Phosphatase (38-126) U/L Total Creatine Kinase (30-135) U/L CK-MB (CK-2) (0.0-2.4) ng/mL CK-MB (CK-2) Rel Index Troponin I (0.000-0.034) ng/mL Total Protein (6.3-8.2) g/dL Albumin (3.5-5.0) g/dL Urine Color Yellow Urine Appearance Clear (Clear) Urine pH 5.5 (5.0-8.0) Ur Specific [place] 1.017 (1.001-1.035) Urine Protein Negative (Negative) Urine Glucose (UA) Negative (Negative) Urine Ketones 1+ H (Negative) Urine Blood Negative (Negative) Urine Nitrite Negative (Negative) Urine Bilirubin Negative (Negative) Urine Urobilinogen <2.0 (<2.0) mg/dL Ur Leukocyte Esterase Small H (Negative) Urine RBC 1 (0-5) /hpf Urine WBC 6 H (0-5) /hpf Urine Bacteria Rare H (None) /hpf Urine Mucus Rare H (None) /hpf Disposition Clinical Impression: Generalized weakness, Acute electrocardiogram changes Disposition: ADMITTED IP TO THIS [facility] Condition: Good Referrals: Allyson Guardado MD [Primary Care Provider] - 1-2 days
[2017-12-08] MEDS ORDERED: NITROGLYCERIN SL TABS 0.4 MG TAB SUBLINGUAL PRN (13:14)
[2017-12-08] MEDS ORDERED: MORPHINE SULFATE 2 MG/ML SYRINGE IV PRN (13:14)
[2017-12-08] MEDS ORDERED: ONDANSETRON 4 MG TAB PO PRN (13:22)
[2017-12-08] MEDS ORDERED: MELATONIN 5 MG TABLET PO PRN (13:22)
[2017-12-08] MEDS ORDERED: HYDROCORTISONE 10 MG TAB PO SCH (15:00)
[2017-12-08] MEDS ORDERED: Potassium Replacement Protocol 1 EACH MISC MISCELLANE PRN (16:09)
[2017-12-08] MEDS ORDERED: Magnesium Replacement Protocol 1 EACH MISC MISCELLANE PRN (16:09)
[2017-12-08] MEDS ORDERED: PANTOPRAZOLE 40 MG/10 ML VIAL IVP SCH (16:15)
[2017-12-08 16:31] LABS: Creatine Kinase 29 U/L (30-135)
[2017-12-08 16:38] LABS: Creatine Kinase MB 0.4 ng/mL (0.0-2.4); Troponin I <0.012 ng/mL (0.000-0.034)
[2017-12-08] MEDS: HYDROmorphone 0.5 MG/0.5 ML SYRINGE IVP PRN ×2 (16:39→19:54)
--- NOTE | 2017-12-08 16:40 | P.CNNES ---
History of Present Illness Consult date: 12/08/17 Reason for Consult: Patient with generalized weakness and headache. History of Present Illness: This patient is a 67-year-old right-handed white female who was brought into the emergency room today for evaluation of generalized weakness and headache. Patient has a long-standing history of migraine headaches in the past and does have frequent breakthrough headaches. She was examined in the emergency room by Dr. Osman. She was sent for a computed tomography scan of the brain which revealed degenerative and nonspecific white matter changes most typical remote microvascular ischemia. There was extensive arteriosclerotic changes in the vertebral basilar system noted as well. Patient also underwent chest x-ray which revealed cardiomegaly. Patient has been complaining of increased shortness of breath. Apparently this worsens with exertion. She does have history of underlying fibromyalgia and obstructive sleep apnea. In the emergency room she was evaluated by Dr. Osman. EKG showed some mild changes which showed ST segment changes. She is being admitted to hospital for cardiology consultation and further recommendations. Patient denies any recent history of heart disease. She states she is being treated for her fibromyalgia as well. She has been placed on atorvastatin 20 mg daily for secondary management of hyperlipidemia. Apparently her recent laboratory tests were fairly well controlled. She does have history of underlying diabetes mellitus as well. She states her most recent hemoglobin A1c was 7.3. This may also be contributing to some degree of diabetic peripheral neuropathy as well. Patient also has a known history of adrenal insufficiency and follows with her wafer fabrication technician in [place] on a regular basis. According to the patient she was just sitting there last week and had some laboratory testing done. Apparently her adrenal insufficiency is stable but she is waiting to hear from the physician in terms of the recent lab results. Patient has been complaining of left-sided headache pain for the past 2 weeks. It is been quite intense. On neurological examination today at bedside she has evidence of bilateral occipital neuritis which is quite severe. We've suggested to the patient to consider having an occipital nerve block procedure for treatment and she is agreeable. Patient has been found to have mild urinary tract infection on admission today as well. She has had episodes of generalized weakness which has responded in the past to IV Solu-Medrol. She likely will require some degree of steroid therapy for treatment of her underlying condition. Terms of her headache symptoms she does seem to have definite evidence of occipital neuritis. We will consult with anesthesia for bilateral occipital nerve block procedure for her. We will continue close neurological follow-up for the patient during this admission. Patient is now admitted and neurology has been consulted for further evaluation and recommendations. Review of Systems Constitutional: Denies chills, Denies fever Eyes: denies blurred vision, denies pain Ears, nose, mouth and throat: Denies headache, Denies sore throat Cardiovascular: Denies chest pain, Denies shortness of breath Respiratory: Denies cough Gastrointestinal: Denies abdominal pain, Denies diarrhea, Denies nausea, Denies vomiting Genitourinary: Denies dysuria, Denies hematuria Musculoskeletal: Denies myalgias Integumentary: Denies pruritus, Denies rash Neurological: Reports headaches, Reports paresthesias, Denies numbness, Denies weakness Psychiatric: Denies anxiety, Denies depression Endocrine: Denies fatigue, Denies weight change Past Medical History Past Medical History: COPD, Diabetes Mellitus, Deep Vein Thrombosis (DVT), Fibromyalgia, Hyperlipidemia, Hypertension, Musculoskeletal Disorder, Osteoarthritis (OA), Sleep Apnea/CPAP/BIPAP Additional Past Medical History / Comment(s): DVT 1976; HX KIDNEY STONES; VARICOSE VEINS; USES CPAP; LT 5TH DIGIT BONE PROB; ADRENAL INSUFF, migraines History of Any Multi-Drug Resistant Organisms: MRSA Date of last positivie culture/infection: 2012 MDRO Source:: UNKNOWN Past Surgical History: Appendectomy, Back Surgery, Bladder Surgery, Cholecystectomy, Hysterectomy, Orthopedic Surgery, Tonsillectomy Additional Past Surgical History / Comment(s): EXC TUMOR RT ARM; OVARIAN CYST EXC; NADEEN TUBES, OVARIES REMOVED; 4TH RT TOE AMPUTATION; EXC NADEEN CATARACTS; KIDNEY STONE REMOVALS Past Anesthesia/Blood Transfusion Reactions: No Reported Reaction Past Psychological History: No Psychological Hx Reported Smoking Status: Never smoker Past Alcohol Use History: Occasional Past Drug Use History: None Reported - Past Family History Father Family Medical History: No Reported History, CVA/TIA Mother Family Medical History: No Reported History Additional Family Medical History / Comment(s): MAT GRANDMOTHER FROM BLOOD CLOT Medications and Allergies Home Medications Medication Instructions Recorded Confirmed Type Aspirin 81 mg PO DAILY 12/01/14 12/08/17 History Atorvastatin Calcium [Lipitor] 20 mg PO HS 12/01/14 12/08/17 History Cholecalciferol [Vitamin D3] 3,000 unit PO DAILY@0700 12/01/14 12/08/17 History Lisinopril [Prinivil] 20 mg PO AC-BRKFST 12/01/14 12/08/17 History Hydrocortisone [Cortef] 15 mg PO DAILY@0700 10/12/15 12/08/17 History L.acidoph,Paracasei, B.lactis 2 cap PO BID 10/12/15 12/08/17 History [Probiotic] Ondansetron [Zofran] 4 mg PO Q6H PRN 10/12/15 12/08/17 History amLODIPine [Norvasc] 5 mg PO DAILY 11/17/15 12/08/17 History Hydrocortisone [Cortef] 10 mg PO DAILY@1500 01/23/17 12/08/17 History Melatonin 5 mg PO HS PRN 01/23/17 12/08/17 History Magnesium Oxide 400 mg PO DAILY #30 tablet 02/08/17 12/08/17 Rx Ascorbic Acid/Multivit-Min 1,000 mg PO DAILY 07/06/17 12/08/17 History [Emergen-C 1,000 mg Packet] Compounding Ointment 0.5 - 1 ml TOPICAL BID PRN 07/06/17 12/08/17 History Cranberry 300mg 600 mg PO DAILY 07/06/17 12/08/17 History Curamin With Turmeric Oil 2 cap PO DAILY 07/06/17 12/08/17 History HYDROcodone/APAP 10-325MG [[place] 1 - 2 tab PO Q4-6H PRN 07/06/17 12/08/17 History 10-325] Insulin Aspart [NovoLOG Flexpen] 16 units SQ AC-BRKFST 07/06/17 12/08/17 History Insulin Aspart [NovoLOG Flexpen] 16 units SQ AC-LUNCH 07/06/17 12/08/17 History Insulin Aspart [NovoLOG Flexpen] 18 unit SQ AC-SUPPER 07/06/17 12/08/17 History Liquid Health Multiple 30 ml PO DAILY 07/06/17 12/08/17 History Metoprolol Succinate (ER) [Toprol 50 mg PO HS 07/06/17 12/08/17 History XL] Sehc-Wfeo-Ywy 6.25-5-10Mg/5Ml 5 ml PO Q6H PRN 07/06/17 12/08/17 History [Phenergan VC with Codeine] Pantoprazole [Protonix] 40 mg PO BID #60 tablet. 07/11/17 12/08/17 Rx Insulin Glargine,Hum.rec.anlog 36 unit SQ HS@2200 11/26/17 12/08/17 History [Lantus Solostar] Meclizine [Antivert] 25 mg PO QID PRN 11/26/17 12/08/17 History Allergies Allergy/AdvReac Type Severity Reaction Status Date / Time butorphanol tartrate Allergy BLISTERS Verified 12/08/17 11:28 [From Stadol] IN MOUTH ceftriaxone [From Rocephin] Allergy Unknown Verified 12/08/17 11:28 clarithromycin [From Biaxin] Allergy Rash/Hives Verified 12/08/17 11:28 codeine Allergy Rash/Hives Verified 12/08/17 11:28 ergotamine tartrate Allergy Unknown Verified 12/08/17 11:28 [From Cafergot] erythromycin base Allergy RASH, GI Verified 12/08/17 11:28 [From E-Mycin] SYMPTOMS ketorolac tromethamine Allergy Rash/Hives Verified 12/08/17 11:28 [From Toradol] monosodium glutamate [MSG] Allergy Nausea & Verified 12/08/17 11:28 Vomiting morphine Allergy Rash/Hives Verified 12/08/17 11:28 nalbuphine HCl [From Nubain] Allergy Nausea & Verified 12/08/17 11:28 Vomiting Penicillins Allergy Rash/Hives Verified 12/08/17 11:28 pentazocine lactate Allergy SEVERE Verified 12/08/17 11:28 [From Talwin] BLISTERS IN MOUTH pregabalin [From Lyrica] Allergy Rash/Hives Verified 12/08/17 11:28 propoxyphene HCl Allergy Rash/Hives Verified 12/08/17 11:28 [From Darvon] Sulfa (Sulfonamide Allergy Rash/Hives Verified 12/08/17 11:28 Antibiotics) tramadol Allergy Unknown Verified 12/08/17 11:28 Physical Examination - Vital Signs Vital Signs: Vital Signs Temp Pulse Resp BP Pulse Ox 12/08/17 13:19 95 18 130/74 98 12/08/17 12:00 89 18 126/57 98 12/08/17 10:33 95 18 113/61 96 06/22/18 09:05 99.3 F 109 H 18 137/75 93 L Intake and Output 12/08/17 12/08/17 12/08/17 06:59 14:59 22:59 Other: Weight 71.668 kg - Constitutional General appearance: average body habitus, cooperative - EENT EENT: PERRL, mucous membranes moist - Respiratory Respiratory: lungs clear, normal breath sounds - Cardiovascular Cardiovascular: regular rate, normal S1, normal S2 Extremities: no peripheral edema bilaterally - Gastrointestinal Gastrointestinal: normoactive bowel sounds - Integumentary Integumentary: normal - Neurologic Cranial nerve examination: PERRL, EOMI, VFF, V1/V2/V3 grossly intact, face symmetric, tongue midline, intact gag reflex, intact corneal reflex, normal palatal elevation Speech examination: intact Sensorimotor examination: intact Motor examination - right side: 4/5: biceps, triceps, wrist flexion, wrist extension, environmental science technician, hip flexors, knee extensors, dorsiflexion, toe extension (EHL) , plantarflexion Motor examination - left side: 4/5: biceps, triceps, wrist flexion, wrist extension, environmental science technician, hip flexors, knee extensors, dorsiflexion, toe extension (EHL) , plantarflexion Detailed sensory examination: intact Reflex and gait examination: intact Reflexes: 1+: ankle, bicep, knee, tricep - Musculoskeletal Musculoskeletal: no pain - Psychiatric Psychiatric: mood/affect appropriate, cooperative Results - Laboratory Findings CBC and BMP: 12/08/17 09:16 12/08/17 09:16 Abnormal Lab Findings: Abnormal Labs 12/08/17 12/08/17 12/08/17 09:10 09:16 09:16 Hgb 11.2 L APTT BUN Glucose POC Glucose (mg/dL) 157 H Total Creatine Kinase 23 L Total Protein Urine Ketones Ur Leukocyte Esterase Urine WBC Urine Bacteria Urine Mucus 12/08/17 12/08/17 12/08/17 09:16 09:16 10:25 Hgb APTT 18.9 L BUN 20 H Glucose 166 H POC Glucose (mg/dL) Total Creatine Kinase Total Protein 5.7 L Urine Ketones 1+ H Ur Leukocyte Esterase Small H Urine WBC 6 H Urine Bacteria Rare H Urine Mucus Rare H Assessment and Plan (1) Occipital neuritis Current Visit: Yes Status: Acute Code(s): M54.81 - OCCIPITAL NEURALGIA SNOMED Code(s): 70400984 (2) Adrenal insufficiency Current Visit: No Status: Chronic Code(s): E27.40 - UNSPECIFIED ADRENOCORTICAL INSUFFICIENCY SNOMED Code(s): 495355956 (3) Generalized weakness Current Visit: Yes Status: Acute Code(s): R53.1 - WEAKNESS SNOMED Code(s) : 82839832 (4) UTI (urinary tract infection) Current Visit: No Status: Acute Code(s): N39.0 - URINARY TRACT INFECTION, SITE NOT SPECIFIED SNOMED Code(s): 79549670 Plan: This patient is a pleasant 67-year-old right-handed white female admitted to Hospital with symptoms of generalized weakness and severe headache. She has been complaining of severe left-sided headache pain for the past 2 weeks. She has a history of underlying adrenal insufficiency and is followed with her wafer fabrication technician in [place]. She was just seen there last week and apparently is awaiting the results of recent laboratory testing. Patient has been having worsening symptoms of generalized weakness and was admitted to hospital today for further management. She has a history of underlying fibromyalgia which may also be contributing to the general weakness. Her headaches are consistent with acute occipital neuritis. This was diagnosed on exam today. We have recommended patient to undergo a bilateral occipital nerve block procedure for treatment. She may benefit from a short course of IV Solu-Medrol for treatment of her adrenal insufficiency and we will await further recommendations from internal medicine. She is also to be seen by cardiology regarding EKG changes. Neurologically she is otherwise intact with no focal weakness. Her generalized weakness once again may be secondary to her adrenal insufficiency and fibromyalgia. We will continue close neurological follow-up with the patient during this admission. Her overall prognosis at this time remains guarded. Time with Patient: Greater than 30
[2017-12-08] MEDS ORDERED: HYDROcodone/APAP 10-325MG 1 EACH TAB PO PRN (17:16)
[2017-12-08] MEDS ORDERED: MECLIZINE 25 MG TAB PO PRN (17:16)
[2017-12-08] MEDS ORDERED: [UNRECOGNIZED DRUG - OTHER] PO PRN (17:16)
[2017-12-08] MEDS ORDERED: COMPOUNDING TOPICAL PRN (17:16)
[2017-12-08] MEDS ORDERED: ALPRAZolam 0.25 MG TAB PO PRN (17:17)
[2017-12-08] MEDS ORDERED: TEMAZEPAM 15 MG CAP PO PRN (17:17)
[2017-12-08] MEDS ORDERED: INSULIN ASPART 100 UNIT/ML 1 ML 10 ML VIAL SQ SCH (17:30)
[2017-12-08] MEDS ORDERED: PANTOPRAZOLE 40 MG TABLET PO SCH (17:30)
[2017-12-08 17:37] LABS: Glucose,Whole Blood 196 mg/dL (75-99)
[2017-12-08] MEDS: ACETAMINOPHEN IV (For NPO) 1,000 MG in EMPTY BAG 1 BAG IVPB SCH ×3 (18:09→23:33)
[2017-12-08] MEDS: PANTOPRAZOLE 40 MG/10 ML VIAL IVP SCH (18:12)
[2017-12-08] MEDS: SODIUM CHLORIDE 0.9% 1,000 ML IV SCH (18:12)
[2017-12-08] MEDS: HYDROCORTISONE SUCCINATE 100 MG/2 ML VIAL IVP SCH (18:12)
--- NOTE | 2017-12-08 18:14 | HP ---
HISTORY AND PHYSICAL CHIEF COMPLAINTS: Weakness, fever, nausea, vomiting, tiredness. HISTORY OF PRESENT ILLNESS: This 67-year-old woman with a past medical history of multiple medical problems, including COPD, diabetes mellitus, history of DVT, history of fibromyalgia, hypertension, hyperlipidemia, history of kidney stones, varicosities, being followed by Dr. Allyson Guardado in the outpatient setting, was complaining of not feeling well over the past couple of days. The patient complains of generalized tiredness and weakness, running fever, nausea and vomiting. The patient came to [facility] and was admitted for further evaluation and treatment. The patient had features of UTI. Acute adrenal crisis was suspected and the patient was admitted for further evaluation and treatment with possible sepsis as well. Lactic acid is only 1.1. The patient also complains of headache and Dr. Barry has seen the patient and recommended occipital nerve block. The patient also had ST-T changes on EKG. PAST MEDICAL HISTORY: 1. History of COPD. 2. Diabetes mellitus. 3. DVT. 4. History of fibromyalgia. 5. Hypertension. 6. Hyperlipidemia. 7. History of DJD. 8. History of sleep apnea. HOME MEDICATIONS: 1. Norvasc 5 mg p.o. daily. 2. Phenergan 5 mL q.6 p.r.n. 3. Protonix 40 mg b.i.d. 4. Zofran 4 mg q.6 p.r.n. 5. Toprol XL 50 mg at bedtime. 6. Melatonin 5 mg at bedtime p.r.n. 7. Antivert 25 mg q.i.d. 8. Magnesium oxide 400 mg daily. 9. Prinivil 20 mg with breakfast. 10.Liquid Health Multiple multivitamins 30 mL p.o. daily. 11.Probiotic 2 tablets p.o. daily. 12.NovoLog 16 units. 13.Lantus 36 subcutaneously at bedtime. 14.Cortef 10 and 15 units. 15.[place] 10 mg q.4 p.r.n. 16.Turmeric oil. 17.Cranberry. 18.Compounding ointment. 19.Vitamin D3 3000. 20.Lipitor 20 mg at bedtime. 21.Aspirin 81 mg daily. 22.Vitamin C 1000 mg p.o. daily. PHYSICAL EXAMINATION: Patient is alert, oriented x3. Pulse is 95, blood pressure 130/74, respiration 18, temperature 98.6, T-max 99.3, pulse ox 98% on 2 L. HEENT: Conjunctivae normal. Oral mucosa moist. NECK: No jugular venous distention. No carotid bruit. No lymph node enlargement. CARDIOVASCULAR SYSTEM: S1, S2 muffled. No S3. No S4. RESPIRATORY SYSTEM: Breath sounds diminished at the bases. Scattered rhonchi. No crackles. ABDOMEN: Soft, obese, nontender. No mass palpable. LEGS: No edema. No swelling. NERVOUS SYSTEM: Higher functions as mentioned earlier. Moves all 4 limbs. Mild diffuse weakness. LYMPHATICS: No lymph node palpable in neck, axillae or groin. SKIN: No ulcer, rash, bleeding. LABS: WBC 8.3, hemoglobin 11.2. Glucose 166. UA noted. ASSESSMENT: 1. Generalized weakness, tiredness, fever with a possible urinary tract infection with sepsis. 2. Possible acute adrenal crisis. 3. History of hypoadrenalism and adrenal crisis. 4. ST-T changes on EKG. 5. History of urolithiasis. 6. Diabetes mellitus, type 2. 7. Chronic obstructive pulmonary disease. 8. History of deep venous thrombosis. 9. History of fibromyalgia. 10.Hyperlipidemia. 11.History of appendectomy. 12.History of methicillin-resistant Staphylococcus aeruginosa. RECOMMENDATIONS AND DISCUSSION: In this 67-year-old woman who presented with multiple complex medical issues, we will monitor the patient closely, continue the current medications, continue with symptomatic treatment. I would recommend broad-spectrum IV antibiotics. Merrem will be initiated. Obtain cultures. IV hydrocortisone. Guarded prognosis because of multiple complex medical issues. I would also recommend a 2D echo with Doppler as well as a cardiology consultation. See orders for further details. Prognosis once again is guarded because of the multiple complex medical issues, as mentioned earlier. Further recommendations to follow. MMODL / IJN: [id number] /
[2017-12-08] MEDS: MEROPENEM 2 GM in SODIUM CHLORIDE 0.9% 100 ML IVPB SCH (18:51)
[2017-12-08] MEDS: HEPARIN SODIUM,PORCINE 5,000 UNIT/ML 1 ML VIAL SQ SCH (20:10)
[2017-12-08 20:47] LABS: Glucose,Whole Blood 229 mg/dL (75-99)
[2017-12-08] MEDS ORDERED: METOPROLOL SUCCINATE (ER) 50 MG TAB.ER.24H PO SCH (21:00)
[2017-12-08] MEDS ORDERED: ATORVASTATIN 20 MG TAB PO SCH (21:00)
[2017-12-08] MEDS ORDERED: LACTOBACILLUS ACIDOPH & BULGAR 1 EACH PACKET PO SCH (21:00)
[2017-12-08] MEDS ORDERED: INSULIN DETEMIR 100 UNIT/ML 10 ML VIAL SQ SCH (22:00)
[2017-12-08] MEDS: ONDANSETRON 4 MG/2 ML VIAL IVP PRN (22:13)
[2017-12-08 22:30] LABS: Creatine Kinase 29 U/L (30-135)
[2017-12-08 22:43] LABS: Creatine Kinase MB 0.4 ng/mL (0.0-2.4); Troponin I <0.012 ng/mL (0.000-0.034)
[2017-12-08] MEDS: INSULIN DETEMIR 100 UNIT/ML 10 ML VIAL SQ SCH (23:34)
[2017-12-08] MEDS: INSULIN ASPART 100 UNIT/ML 1 ML 10 ML VIAL SQ SCH (23:34)
[2017-12-09] MEDS: HYDROmorphone 0.5 MG/0.5 ML SYRINGE IVP PRN ×7 (00:01→22:30)
[2017-12-09] MEDS: MEROPENEM 2 GM in SODIUM CHLORIDE 0.9% 100 ML IVPB SCH ×3 (00:01→15:17)
[2017-12-09] MEDS: HYDROCORTISONE SUCCINATE 100 MG/2 ML VIAL IVP SCH ×3 (02:15→17:33)
[2017-12-09 06:12] LABS: Glucose,Whole Blood 126 mg/dL (75-99)
[2017-12-09] MEDS: INSULIN ASPART 100 UNIT/ML 1 ML 10 ML VIAL SQ SCH ×4 (06:22→21:10)
[2017-12-09 06:26] LABS: Basophils % (A) 0 %; Eosinophils # (A) 0.2 k/uL (0-0.7); Eosinophils % (A) 3 %; HCT 33.5 % (34.0-46.0); HGB 10.5 gm/dL (11.4-16.0); Hypochromasia Slight; Lymphocytes # (A) 1.5 k/uL (1.0-4.8); Lymphocytes % (A) 19 %; MCH 26.5 pg (25.0-35.0); MCHC 31.4 g/dL (31.0-37.0); MCV 84.5 fL (80.0-100.0); Mean Platelet Volume 7.1; Monocytes # (A) 0.5 k/uL (0-1.0); Monocytes % (A) 7 %; Neutrophils # (A) 5.3 k/uL (1.3-7.7); Neutrophils % (A) 69 %; Platelet Count 235 k/uL (150-450); Poikilocytosis Slight; RBC 3.96 m/uL (3.80-5.40); RDW 15.4 % (11.5-15.5); WBC 7.8 k/uL (3.8-10.6)
[2017-12-09] MEDS: SODIUM CHLORIDE 0.9% 1,000 ML IV SCH ×3 (06:28→23:12)
[2017-12-09] MEDS: PANTOPRAZOLE 40 MG/10 ML VIAL IVP SCH ×2 (06:28→17:33)
[2017-12-09] MEDS: ACETAMINOPHEN IV (For NPO) 1,000 MG in EMPTY BAG 1 BAG IVPB SCH (06:29)
[2017-12-09 06:40] LABS: Anion Gap 9 mmol/L; Blood Urea Nitrogen 13 mg/dL (7-17); Calcium 9.7 mg/dL (8.4-10.2); Carbon Dioxide 28 mmol/L (22-30); Chloride 99 mmol/L (98-107); Cholesterol 129 mg/dL (<200); Glucose 128 mg/dL (74-99); HDL Cholesterol 34 mg/dL (40-60); LDL Cholesterol,Calculated 52 mg/dL (0-99); Magnesium 1.7 mg/dL (1.6-2.3); Potassium 4.6 mmol/L (3.5-5.1); Sodium 136 mmol/L (137-145); Triglycerides 217 mg/dL (<150)
[2017-12-09] MEDS ORDERED: CHOLECALCIFEROL 1,000 UNIT TAB PO SCH (07:00)
[2017-12-09] MEDS ORDERED: HYDROCORTISONE 10 MG TAB PO SCH (07:00)
[2017-12-09] MEDS ORDERED: LISINOPRIL 20 MG TAB PO SCH (07:30)
[2017-12-09] MEDS ORDERED: INSULIN ASPART 100 UNIT/ML 1 ML 10 ML VIAL SQ SCH ×2 (07:30→12:30)
[2017-12-09] MEDS: HEPARIN SODIUM,PORCINE 5,000 UNIT/ML 1 ML VIAL SQ SCH ×2 (08:14→19:45)
--- NOTE | 2017-12-09 08:14 | ECHOF ---
Referral Reason:weakness with ekg changes MEASUREMENTS -------- HEIGHT: 152.4 cm WEIGHT: 71.7 kg BP: IVSd: 1.3 cm (0.6 - 1.1) LVIDd: 4.3 cm (3.9 - 5.3) LVPWd: 1.1 cm (0.6 - 1.1) IVSs: 1.5 cm LVIDs: 3.0 cm LVPWs: 1.3 cm LA Diam: 3.4 cm (2.7 - 3.8) LAESV Index (A-L): 35.98 ml/m Ao Diam: 3.1 cm (2.0 - 3.7) AV Cusp: 1.4 cm (1.5 - 2.6) LA Diam: 4.1 cm (2.7 - 3.8) MV EXCURSION: 19.523 mm (> 18.000) MV EF SLOPE: 131 mm/s (70 - 150) EPSS: 0.1 cm MV E Fuad: 0.57 m/s MV DecT: 269 ms MV A Fuad: 0.80 m/s MV E/A Ratio: 0.70 RAP: 5.00 mmHg RVSP: 24.25 mmHg FINDINGS -------- Sinus rhythm. This was a technically adequate study. The left ventricular size is normal. There is moderate concentric left ventricular hypertrophy. O verall left ventricular systolic function is normal with, an EF between 55 - 60 %. The right ventricle is normal in size. The left atrial size is normal. LA is moderately dilated 34-39 ml/m2 The right atrial size is normal. There is mild aortic valve sclerosis. There is no evidence of aortic regurgitation. Mild mitral annular calcification present. Mild mitral regurgitation is present. Mild tricuspid regurgitation present. There is no evidence of pulmonary hypertension. The right v entricular systolic pressure, as measured by Doppler, is 24.25mmHg. There is no pulmonic regurgitation present. The aortic root size is normal. There is no pericardial effusion. CONCLUSIONS -------- 1. The left ventricular size is normal. 2. There is moderate concentric left ventricular hypertrophy. 3. Overall left ventricular systolic function is normal with, an EF between 55 - 60 %. 4. The right ventricle is normal in size. 5. The left atrial size is normal. 6. LA is moderately dilated 34-39 ml/m2 7. The right atrial size is normal. 8. There is mild aortic valve sclerosis. 9. Mild mitral annular calcification present. 10. Mild mitral regurgitation is present. 11. Mild tricuspid regurgitation present. 12. There is no evidence of pulmonary hypertension. 13. The right ventricular systolic pressure, as measured by Doppler, is 24.25mmHg. 14. There is no pulmonic regurgitation present. 15. The aortic root size is normal. 16. There is no pericardial effusion. [employer] TE[employer]ER: Leonor Francisco RDCS
[2017-12-09] MEDS: ONDANSETRON 4 MG/2 ML VIAL IVP PRN ×3 (08:16→21:09)
[2017-12-09] MEDS ORDERED: MAGNESIUM OXIDE 400 MG TAB PO SCH (09:00)
[2017-12-09] MEDS ORDERED: ASPIRIN 81 MG PO SCH (09:00)
[2017-12-09] MEDS ORDERED: amLODIPine 5 MG TAB PO SCH (09:00)
[2017-12-09] MEDS ORDERED: MULTIVIT MIN PO SCH (09:00)
[2017-12-09] MEDS ORDERED: ASCORBIC ACID PO SCH (09:00)
[2017-12-09 12:07] LABS: Glucose,Whole Blood 118 mg/dL (75-99)
[2017-12-09] MEDS: FOLIC ACID 1 MG TAB PO SCH (12:41)
[2017-12-09] MEDS: MULTIVITAMINS, THERA 1 EACH TAB PO SCH (12:41)
[2017-12-09] MEDS: THIAMINE 100 MG TAB PO SCH (12:41)
[2017-12-09 13:03] LABS: Hemoglobin A1C 7.5 % (4.0-6.0)
--- NOTE | 2017-12-09 13:24 | CONS ---
CONSULTATION Melissa Pena is a 67-year-old female who has multiple medical problems and came in complaining of not feeling well. She complains of tiredness and fatigue with nausea and vomiting. Cardiology was consulted for evaluation of shortness of breath. Cardiac enzymes are normal. A 12-lead ECG and cardiac enzymes are normal. A 2D echo showed left ventricular hypertrophy with preserved LV systolic function, aortic valve sclerosis and normal PA pressures. PAST MEDICAL HISTORY: COPD, diabetes type 2, DVT, fibromyalgia, hypertension, dyslipidemia, DJD, and sleep apnea and obesity. MEDICATIONS: Home medications Norvasc, Phenergan, Protonix, Zofran, Toprol, melatonin, Antivert, magnesium, Prinivil, probiotic, insulin, Cortef, [place], cranberry, Lipitor, aspirin. REVIEW OF SYSTEMS: No fever, chills, or rigors. No cough or expectoration. She had mild abdominal symptoms, tiredness and fatigue. No hematuria or dysuria. No recent strokes, seizures. No chest pain. PHYSICAL EXAMINATION: On examination, her blood pressure 130/74 mmHg, respirations normal. She is afebrile. Pulse ox 98% on 2 L oxygen. Head and neck examination normal. No JVD, thyromegaly or carotid bruits. Heart sounds S1, S2 normal. Normal S1, normal S2. No murmurs, rubs or gallops. Breath sounds are reduced bilaterally with scattered rhonchi. No crackles. Abdomen is soft, nontender. Extremities are warm. No edema. LABS: Labs are reviewed. IMPRESSION: 1. Shortness of breath. The patient presenting with shortness of breath with a history of hypertension. Blood pressure is . 2D echo is normal. Cardiac enzymes normal. 2. History of diabetes. SUGGEST: From a cardiac standpoint. No further workup indicated at this point. Continue medical management. MMODL / IJN: [id number] /
[2017-12-09 17:16] LABS: Glucose,Whole Blood 179 mg/dL (75-99)
[2017-12-09 20:49] LABS: Glucose,Whole Blood 178 mg/dL (75-99)
[2017-12-09] MEDS ORDERED: ACETAMINOPHEN IV (For NPO) 1,000 MG in EMPTY BAG 1 BAG IVPB ONE (21:00)
[2017-12-09] MEDS: INSULIN DETEMIR 100 UNIT/ML 10 ML VIAL SQ SCH (21:16)
--- NOTE | 2017-12-09 22:00 | PN ---
PROGRESS NOTE DATE OF SERVICE: 12/09/2017. INTERVAL HISTORY: This 67-year-old woman was admitted with weakness, fever, nausea, vomiting and tiredness as well as possible acute urinary tract infection with sepsis and acute adrenal crisis also. With IV steroids, antibiotics, the patient is feeling slightly better. No chest pain. No palpitations. Still complaining of tiredness. EXAM: Alert, and oriented times three. Pulse 110, blood pressure 116/55, respiration 18, temperature 99.2, pulse ox 91% on room air. HEENT is conjunctivae normal. Neck is no jugular venous distention. Cardiovascular system: S1, S2 muffled. Respirations: Breath sounds diminished in the bases. Scattered rhonchi. No crackles. Abdomen soft, nontender. Legs are no edema. No swelling. LABS: WBC 7.2, hemoglobin is 10.5. Glucose noted. Triglycerides 217. ASSESSMENT: 1. Generalized weakness, tiredness, fever with possible acute urinary tract infection with sepsis, present on admission. 2. Acute adrenal crisis. 3. History of hypo adrenal crisis previously. 4. ST-T changes on the EKG. 5. History of urolithiasis. 6. Diabetes type 2. 7. History of chronic obstructive pulmonary disease. 8. History of deep vein thrombosis. 9. History of fibromyalgia. 10.Hyperlipidemia. 11.History of appendectomy. 12.History of Methicillin-resistant Staphylococcus aureus. RECOMMENDATIONS AND DISCUSSION: Recommend to continue current medications, symptomatic treatment, continue to monitor, otherwise at this time I would continue the broad-spectrum IV antibiotics and steroids. Also recommend continued follow up with Cardiology. Possible stress test next week because of EKG changes. Guarded prognosis because of multiple complex medical issues. Further recommendations to follow. MMODL / IJN: [id number] /
[2017-12-09] MEDS: AZTREONAM 1 GM in SODIUM CHLORIDE 0.9% 50 ML IVPB SCH (23:12)
--- NOTE | 2017-12-09 23:36 | CONS ---
CONSULTATION DATE OF CONSULTATION: 12/09/2017. REASON FOR CONSULTATION: Sepsis. HISTORY OF PRESENT ILLNESS: The patient is a 57-year-old female who was brought into the ER at [facility] yesterday morning with chief complaint of generalized weakness and no energy. The symptoms have been going on for about 3-4 days prior to presentation to hospital. The patient did have a low-grade fever of around 100 to 100.8. The patient denies significant chills or rigors with it. The patient denies significant chest pain. No shortness of breath or cough. No significant abdominal pain. No diarrhea. Did have some burning of urine, but no frequency or hematuria. With these symptoms, the patient has been evaluated by the ER physician. On arrival to the ER, the patient did have a low-grade fever with some tachycardia and subsequently did spike a fever of 100.8 today. The patient did have a UA that was mildly positive. White count was normal though. Liver enzymes normal. Chest x-ray negative for any pneumonia. Patient does have MULTIPLE ANTIBIOTIC ALLERGIES. She was started on meropenem 2 g and infectious disease was consulted for further recommendation regarding antibiotic therapy. REVIEW OF SYSTEMS: CONSTITUTIONAL: Positive for weakness and low-grade fever. Eyes no complaint. ENT no complaint. Respiratory: No shortness of breath. No cough. Cardiovascular: No complaint. Gastrointestinal: As mentioned earlier. GASTROINTESTINAL: No complaint. Musculoskeletal no clubbing or deformity. Integumentary: No complaint. Psychological no complaint. Endocrine no complaint. Neurologic no complaint. PAST MEDICAL HISTORY: Significant for COPD, diabetes mellitus, DVT, fibromyalgia, hypertension, hyperlipidemia, osteoarthritis, sleep apnea, varicose veins and adrenal insufficiency. PAST SURGICAL HISTORY: Appendectomy and back surgery, cholecystectomy, hysterectomy, and tonsillectomy, ovarian cyst removal. SOCIAL HISTORY: No history of smoking, drinking, or drug use. FAMILY HISTORY: Father history of CVA TIA. Mother from blood clot. ALLERGIES: Multiple medication and antibiotic ibarra, the patient is allergic to ROCEPHIN, PENICILLIN, SULFA and as on the chart. MEDICATION: Currently patient is on Dilaudid, NovoLog, Levemir and Antivert, meropenem 2 g q.8, Theragran, Nitrostat, Zofran, Protonix, Restoril and vitamin B1. PHYSICAL EXAMINATION: Blood pressure is 155/74, pulse of 107, temperature 100.8. She is 93% on room air. General description is an elderly female, lying in bed in no distress. No tachypnea or accessory muscles of respiration use. HEENT: Shows slight pallor. No scleral icterus. Oral mucous membranes dry. No pharyngeal erythema or thrush. Neck trachea central, no thyromegaly. Lungs unlabored breathing. Clear to auscultation. No wheeze or crackles. Heart S1, S2. Regular rate and rhythm. . ABDOMEN: Soft, no tenderness. No guarding. No rigidity. EXTREMITIES: No edema of feet. Skin examination no rash or mass palpable. Neurological patient is awake, alert, oriented x2. Mood and affect normal. LABS: Hemoglobin is 10.5, white count of 7.8. BUN of 13, creatinine 0.60. Electrolytes have been normal. Liver enzymes are normal. Urine was slightly positive. Chest x-ray report negative for any pneumonia. DIAGNOSTIC IMPRESSION AND PLAN: 1. Patient admitted to the hospital with generalized weakness in a patient who did have a low-grade fever. Some urinary symptoms with a positive urine, likely a component of urinary tract infection. The patient currently with no other clinical focus of infection. Chest x-ray report negative for any pneumonia. Abdomen was soft on clinical examination. No evidence of any cellulitis or joint swelling. 2. Patient who does have multiple antibiotic allergies that do limit the number of antibiotics that could be safely used. PLAN: 1. Discontinue the meropenem. 2. We will start the patient on Azactam 1 g q.12h while waiting for the culture to finalize. 3. We will follow up on clinical condition and culture to further adjust medication if needed. Thank you for this consultation. We will follow this patient along with you. MMODL / IJN: [id number] /
[2017-12-10] MEDS: HYDROCORTISONE SUCCINATE 100 MG/2 ML VIAL IVP SCH ×4 (01:48→21:26)
[2017-12-10] MEDS: HYDROmorphone 0.5 MG/0.5 ML SYRINGE IVP PRN ×7 (01:53→21:27)
[2017-12-10 06:19] LABS: Glucose,Whole Blood 197 mg/dL (75-99)
[2017-12-10 06:23] LABS: Basophils % (A) 0 %; Eosinophils # (A) 0.1 k/uL (0-0.7); Eosinophils % (A) 2 %; HCT 31.8 % (34.0-46.0); HGB 10.5 gm/dL (11.4-16.0); Hypochromasia Slight; Lymphocytes # (A) 0.8 k/uL (1.0-4.8); Lymphocytes % (A) 12 %; MCH 27.6 pg (25.0-35.0); MCHC 33.2 g/dL (31.0-37.0); MCV 83.3 fL (80.0-100.0); Mean Platelet Volume 7.2; Monocytes # (A) 0.4 k/uL (0-1.0); Monocytes % (A) 5 %; Neutrophils # (A) 5.5 k/uL (1.3-7.7); Neutrophils % (A) 80 %; Platelet Count 214 k/uL (150-450); Poikilocytosis Slight; RBC 3.82 m/uL (3.80-5.40); RDW 15.7 % (11.5-15.5); WBC 6.9 k/uL (3.8-10.6)
[2017-12-10 06:33] LABS: Anion Gap 11 mmol/L; Blood Urea Nitrogen 7 mg/dL (7-17); Calcium 9.8 mg/dL (8.4-10.2); Carbon Dioxide 27 mmol/L (22-30); Chloride 99 mmol/L (98-107); Glucose 185 mg/dL (74-99); Potassium 4.1 mmol/L (3.5-5.1); Sodium 137 mmol/L (137-145)
[2017-12-10] MEDS: INSULIN ASPART 100 UNIT/ML 1 ML 10 ML VIAL SQ SCH ×4 (06:35→21:27)
[2017-12-10] MEDS: PANTOPRAZOLE 40 MG/10 ML VIAL IVP SCH ×2 (06:52→17:14)
[2017-12-10] MEDS: SODIUM CHLORIDE 0.9% 1,000 ML IV SCH ×2 (09:00→17:23)
[2017-12-10] MEDS: HEPARIN SODIUM,PORCINE 5,000 UNIT/ML 1 ML VIAL SQ SCH ×2 (09:00→21:27)
[2017-12-10] MEDS: FOLIC ACID 1 MG TAB PO SCH (09:01)
[2017-12-10] MEDS: THIAMINE 100 MG TAB PO SCH (09:01)
[2017-12-10] MEDS: MULTIVITAMINS, THERA 1 EACH TAB PO SCH (09:01)
[2017-12-10] MEDS: ONDANSETRON 4 MG/2 ML VIAL IVP PRN (09:08)
[2017-12-10] MEDS: AZTREONAM 1 GM in SODIUM CHLORIDE 0.9% 50 ML IVPB SCH ×2 (11:03→22:05)
[2017-12-10 11:44] LABS: Glucose,Whole Blood 222 mg/dL (75-99)
[2017-12-10 17:23] LABS: Glucose,Whole Blood 292 mg/dL (75-99)
[2017-12-10 20:25] LABS: Glucose,Whole Blood 301 mg/dL (75-99)
--- NOTE | 2017-12-10 20:34 | PN ---
PROGRESS NOTE DATE OF SERVICE: 12/10/2017 This 67-year-old woman who was admitted with generalized weakness and tiredness, and fever with possible acute urinary tract infection with sepsis is being closely monitored. No chest pain. No palpitations. No fever. EXAM: Alert and oriented times two. Pulse 85, blood pressure 132/72, respiration 16, temperature 98.6, pulse ox 92% on room air. HEENT: Conjunctivae normal. NECK: No jugular venous distention. CARDIOVASCULAR: S1, S2 muffled. RESPIRATORY: Breath sounds diminished in the bases. No rhonchi and no crackles. ABDOMEN is soft, nontender. No mass palpable. LEGS are no edema, no swelling. CENTRAL NERVOUS SYSTEM: No focal deficits. LABS: WBC 6.2, hemoglobin 10.8. Accu-Cheks are noted. ASSESSMENT: 1. Generalized weakness, tiredness, fever with possible acute urinary tract infection with sepsis, present on admission. 2. Acute adrenal crisis. 3. History of hypoadrenal crisis previously. 4. ST-T changes on the EKG. 5. History or urolithiasis. 6. Diabetes type 2. 7. History of chronic obstructive pulmonary disease. 8. History of deep vein thrombosis. 9. History of fibromyalgia. 10.Hyperlipidemia. 11.History of appendectomy. 12.History of MRSA. RECOMMENDATIONS AND DISCUSSION: Recommend to continue current medications, and symptomatic treatment. Otherwise, at this time, I recommend continue the broad-spectrum IV antibiotics. Patient is on aztreonam at this time. Cultures are still negative. The patient is on hydrocortisone 100 mg q8h. I would recommend to reduce the dose to 50 mg IV q.8. Continue to monitor. Prognosis guarded because of multiple complex medical issues and further recommendations to follow. MMODL / IJN: [id number] /
[2017-12-10] MEDS: INSULIN DETEMIR 100 UNIT/ML 10 ML VIAL SQ SCH (21:27)
--- NOTE | 2017-12-10 22:33 | P.PN ---
Subjective Progress Note Date: 12/10/17 This patient is a 67-year-old female who was admitted to hospital with generalized weakness and bilateral headache. Patient was found to have evidence of occipital neuritis. We have consulted anesthesia for bilateral occipital nerve block procedure for treatment of this patient. She is being treated for adrenal insufficiency and is currently being followed by multiple specialists. The patient is showing improvement overall today and has been started on IV Solu-Medrol. She is also been seen by infectious disease for urinary tract infection. She has been switched on antibiotics and is currently taking Azactam until her urine cultures are finalized. Overall the patient is feeling better. She states she is likely to be scheduled for occipital nerve block procedure tomorrow. Cardiology has evaluated the patient for shortness of breath. Her cardiac enzymes are normal. 2-D echo showed left ventricular hypertrophy with preserved LV function. According to the patient she may be considered for a stress test. She would like to hold off and will discuss this tomorrow with cardiology. Overall the patient is making progress. We will continue close neurological follow-up for the patient during this admission. Objective - Vital Signs Vital signs: Vital Signs Temp 98.0 F 12/10/17 15:34 Pulse 113 H 12/10/17 15:37 Resp 18 12/10/17 15:37 BP 140/65 12/10/17 15:34 Pulse Ox 95 12/10/17 15:34 Intake & Output 12/09/17 12/10/17 12/10/17 18:59 06:59 18:59 Intake Total 1580 1250 1370 Output Total 1300 600 Balance 280 1250 770 Weight 71.9 kg Intake: IV 1400 1250 1200 Aztreonam 1 gm In Sodium 50 Chloride 0.9% 50 ml @ 100 mls/hr IVPB Q12H [facility] Rx# :[id number] Meropenem 2 gm In Sodium 100 Chloride 0.9% 100 ml @ 200 mls/hr IVPB Q8HR [facility] Rx#:[id number] Sodium Chloride 0.9% 1, 1300 1200 1200 000 ml @ 100 mls/hr IV . Q10H [facility] Rx#:[id number] Intake, IV Titration 50 Amount Aztreonam 1 gm In Sodium 50 Chloride 0.9% 50 ml @ 100 mls/hr IVPB Q12H [facility] Rx# :[id number] Oral 180 120 Output: Urine 1300 600 Other: Voiding Method Toilet Bedside Commode # Voids 1 1 # Bowel Movements 1 - Exam Physical examination: PHYSICAL EXAMINATION: Patient is resting comfortably in bed. VITAL SIGNS: Blood pressure is [140/65]. Heart rate is [103]. Respiration is [18 ]. Temperature is [98.0]. HEENT: Head is atraumatic, neck is supple, there were no carotid bruits. CHEST: Lungs are clear to auscultation and percussion. CARDIAC: S1, S2 normal rate and rhythm. There is no murmur. ABDOMEN: Soft and nontender. Bowel sounds are present. EXTREMITIES: There is no pedal edema. Peripheral pulses are present. Neurological examination: Patient's neurological examination is nonfocal. She is awake and alert today and is responsive to all questions. Neurological examination remains stable. - Labs CBC & Chem 7: 12/10/17 05:43 12/10/17 05:43 Labs: Abnormal Lab Results - Last 24 Hours (Table) 12/09/17 12/09/17 12/09/17 Range/Units 05:33 17:13 20:47 Hgb (11.4-16.0) gm/dL Hct (34.0-46.0) % RDW (11.5-15.5) % Lymphocytes # (1.0-4.8) k/uL Glucose (74-99) mg/dL POC Glucose (mg/dL) 179 H 178 H (75-99) mg/dL Hemoglobin A1c 7.5 H (4.0-6.0) % 12/10/17 12/10/17 12/10/17 Range/Units 05:43 05:43 06:01 Hgb 10.5 L (11.4-16.0) gm/dL Hct 31.8 L (34.0-46.0) % RDW 15.7 H (11.5-15.5) % Lymphocytes # 0.8 L (1.0-4.8) k/uL Glucose 185 H (74-99) mg/dL POC Glucose (mg/dL) 197 H (75-99) mg/dL Hemoglobin A1c (4.0-6.0) % 12/10/17 Range/Units 11:22 Hgb (11.4-16.0) gm/dL Hct (34.0-46.0) % RDW (11.5-15.5) % Lymphocytes # (1.0-4.8) k/uL Glucose (74-99) mg/dL POC Glucose (mg/dL) 222 H (75-99) mg/dL Hemoglobin A1c (4.0-6.0) % Microbiology - Last 24 Hours (Table) 12/08/17 22:05 Urine Culture - Final Urine,Clean Catch 12/08/17 18:07 Blood Culture - Preliminary Blood No Growth after 24 hours Assessment and Plan (1) Occipital neuritis Current Visit: Yes Status: Acute Code(s): M54.81 - OCCIPITAL NEURALGIA SNOMED Code(s): 17307519 (2) Adrenal insufficiency Current Visit: No Status: Chronic Code(s): E27.40 - UNSPECIFIED ADRENOCORTICAL INSUFFICIENCY SNOMED Code(s): 406425382 (3) Generalized weakness Current Visit: Yes Status: Acute Code(s): R53.1 - WEAKNESS SNOMED Code(s) : 96952196 (4) UTI (urinary tract infection) Current Visit: No Status: Acute Code(s): N39.0 - URINARY TRACT INFECTION, SITE NOT SPECIFIED SNOMED Code(s): 36655035 Plan: This patient is a pleasant 67-year-old female who was admitted to hospital with generalized fatigue and shortness of breath. She has multiple specialists following her since admission. She does have history of adrenal insufficiency and has been started on IV Solu-Medrol. Today she is showing improvement in her overall alertness and does not appear to be as fatigued. She does have evidence of bilateral occipital neuritis and is being scheduled for occipital nerve block procedure possibly tomorrow morning. Overall she is making progress. We will continue close neurological follow-up for the patient during this admission. Overall prognosis at this time remains guarded.
--- NOTE | 2017-12-11 00:10 | PN ---
PROGRESS NOTE DATE OF SERVICE: 12/10/2017. REASON FOR FOLLOWUP: Urinary tract infection. INTERVAL HISTORY: The patient did have fever last night of 100.4. The patient afebrile since then. She has been breathing comfortably. Denies any chest pain or shortness of breath or cough. No abdominal pain or diarrhea. EXAMINATION: Blood pressure 132/72 with a pulse of 85, temperature 98.6. She is 97% on 2 L nasal cannula. General description is an elderly female lying in bed in no distress. Respiratory system: Unlabored breathing. Clear to auscultation anteriorly. Heart S1, S2. Regular rate and rhythm. Abdomen soft, no tenderness. LABS: Hemoglobin 10.5, white count 6.8 with BUN of 7, creatinine 0.60. Urine culture currently pending. Blood cultures have been negative. DIAGNOSTIC IMPRESSION/PLAN: The patient admitted to the hospital with generalized weakness and did have a low-grade fever with concern for possible urinary tract infection. Her urine currently pending. The patient to continue because of MULTIPLE ANTIBIOTIC ALLERGY. We will follow up on cultures to determine discharge antibiotics. Continue supportive care. MMODL / IJN: [id number] /
[2017-12-11] MEDS: HYDROmorphone 0.5 MG/0.5 ML SYRINGE IVP PRN ×8 (00:25→21:30)
[2017-12-11] MEDS: HYDROCORTISONE SUCCINATE 100 MG/2 ML VIAL IVP SCH ×3 (03:42→19:51)
[2017-12-11] MEDS: SODIUM CHLORIDE 0.9% 1,000 ML IV SCH ×2 (03:44→12:26)
[2017-12-11 05:48] LABS: Glucose,Whole Blood 204 mg/dL (75-99)
[2017-12-11] MEDS: INSULIN ASPART 100 UNIT/ML 1 ML 10 ML VIAL SQ SCH ×4 (06:49→21:29)
[2017-12-11] MEDS: ONDANSETRON 4 MG/2 ML VIAL IVP PRN ×2 (06:50→15:27)
[2017-12-11] MEDS: PANTOPRAZOLE 40 MG/10 ML VIAL IVP SCH ×2 (06:52→17:10)
[2017-12-11 07:11] LABS: Basophils % (A) 0 %; Eosinophils # (A) 0.1 k/uL (0-0.7); Eosinophils % (A) 1 %; HCT 30.8 % (34.0-46.0); HGB 9.9 gm/dL (11.4-16.0); Hypochromasia Slight; Lymphocytes # (A) 1.3 k/uL (1.0-4.8); Lymphocytes % (A) 18 %; MCH 26.8 pg (25.0-35.0); MCHC 32.1 g/dL (31.0-37.0); MCV 83.5 fL (80.0-100.0); Monocytes # (A) 0.5 k/uL (0-1.0); Monocytes % (A) 7 %; Neutrophils % (A) 73 %; Platelet Count 230 k/uL (150-450); Poikilocytosis Slight; RBC 3.69 m/uL (3.80-5.40); RDW 15.3 % (11.5-15.5); WBC 6.9 k/uL (3.8-10.6)
[2017-12-11 07:16] LABS: Anion Gap 8 mmol/L; Blood Urea Nitrogen 13 mg/dL (7-17); Calcium 9.5 mg/dL (8.4-10.2); Carbon Dioxide 31 mmol/L (22-30); Chloride 101 mmol/L (98-107); Glucose 183 mg/dL (74-99); Potassium 3.8 mmol/L (3.5-5.1); Sodium 140 mmol/L (137-145)
[2017-12-11] MEDS: AZTREONAM 1 GM in SODIUM CHLORIDE 0.9% 50 ML IVPB SCH ×2 (09:40→22:03)
[2017-12-11] MEDS: THIAMINE 100 MG TAB PO SCH (09:41)
[2017-12-11] MEDS: FOLIC ACID 1 MG TAB PO SCH (09:41)
[2017-12-11] MEDS: MULTIVITAMINS, THERA 1 EACH TAB PO SCH (09:41)
[2017-12-11] MEDS: HEPARIN SODIUM,PORCINE 5,000 UNIT/ML 1 ML VIAL SQ SCH ×2 (09:42→19:51)
[2017-12-11 10:14] VITALS: BMI 31.4
[2017-12-11 11:12] LABS: Glucose,Whole Blood 178 mg/dL (75-99)
[2017-12-11 16:31] LABS: Glucose,Whole Blood 250 mg/dL (75-99)
--- NOTE | 2017-12-11 17:53 | PN ---
PROGRESS NOTE DATE OF SERVICE: 12/11/2017 This 67-year-old woman with a past medical history of multiple medical problems was admitted with generalized weakness and tiredness and with possible UTI. The patient had features of adrenal crisis, also. No chest pain. No palpitations. No fever. On exam, alert and oriented x3. Pulse 85, blood pressure 160/75, respirations 16, temperature 98.1, pulse ox 95% on room air. HEENT: Conjunctivae normal. NECK: No jugular venous distention. CARDIOVASCULAR SYSTEM: S1, S2 muffled. RESPIRATORY SYSTEM: Breath sounds diminished at the bases. No rhonchi. No crackles. ABDOMEN: Soft, non-tender. LEGS: No edema. No swelling. NERVOUS SYSTEM: No focal deficit. LABS: WBC 6.9, hemoglobin 9.9. ASSESSMENT: 1. Generalized weakness, tiredness, fever, with possible acute urinary tract infection with sepsis, present on admission. 2. Acute adrenal crisis. 3. History of hypoadrenal crisis previously. 4. ST-T changes on EKG. 5. History of urolithiasis. 6. Diabetes mellitus, type 2. 7. History of chronic obstructive pulmonary disease. 8. History of deep vein thrombosis. 9. History of fibromyalgia. 10.Hyperlipidemia. 11.History of appendectomy. 12.History of methicillin-resistant Staphylococcus aeruginosa. RECOMMENDATIONS AND DISCUSSION: At this time I recommend to continue current medication, continue symptomatic treatment, continue with IV steroids, continue rest of the medication. Taper the hydrocortisone. Prognosis guarded. Further recommendations to follow. MMODL / IJN: [id number] /
[2017-12-11 20:20] LABS: Glucose,Whole Blood 274 mg/dL (75-99)
[2017-12-11] MEDS: INSULIN DETEMIR 100 UNIT/ML 10 ML VIAL SQ SCH (21:29)
--- NOTE | 2017-12-11 22:29 | P.PN ---
Subjective Progress Note Date: 12/11/17 This patient is a 67-year-old female who was admitted to hospital with generalized weakness and bilateral headache. Patient was found to have evidence of occipital neuritis. We have consulted anesthesia for bilateral occipital nerve block procedure for treatment of this patient. She is being treated for adrenal insufficiency and is currently being followed by multiple specialists. The patient is showing improvement overall today and has been started on IV Solu-Medrol. She is also been seen by infectious disease for urinary tract infection. She has been switched on antibiotics and is currently taking Azactam until her urine cultures are finalized. Overall the patient is feeling better. She states she is likely to be scheduled for occipital nerve block procedure tomorrow. Cardiology has evaluated the patient for shortness of breath. Her cardiac enzymes are normal. 2-D echo showed left ventricular hypertrophy with preserved LV function. According to the patient she may be considered for a stress test. Overall the patient is making progress. She is being weaned off of her steroid dosage today. According to the patient she will be scheduled for occipital nerve block procedure only tomorrow. We will continue close neurological follow-up for the patient during this admission. Objective - Vital Signs Vital signs: Vital Signs Temp 98.3 F 12/11/17 20:00 Pulse 83 12/11/17 20:00 Resp 18 12/11/17 20:00 BP 156/76 12/11/17 20:00 Pulse Ox 94 L 12/11/17 20:00 Intake & Output 12/11/17 12/11/17 12/12/17 06:59 18:59 06:59 Intake Total 0 1490 Output Total 900 825 Balance -900 665 Weight 72.9 kg 72.9 kg Intake: IV 1250 Aztreonam 1 gm In Sodium 50 Chloride 0.9% 50 ml @ 100 mls/hr IVPB Q12H [facility] Rx# :[id number] Sodium Chloride 0.9% 1, 1200 000 ml @ 100 mls/hr IV . Q10H [facility] Rx#:[id number] Oral 0 240 Output: Urine 900 825 Other: Voiding Method Bedside Commode Bedside Commode Bedside Commode # Voids 1 # Bowel Movements 1 1 - Exam Physical examination: PHYSICAL EXAMINATION: Patient is resting comfortably in bed. VITAL SIGNS: Blood pressure is [160/75]. Heart rate is [85]. Respiration is [16] . Temperature is [98.1]. HEENT: Head is atraumatic, neck is supple, there were no carotid bruits. CHEST: Lungs are clear to auscultation and percussion. CARDIAC: S1, S2 normal rate and rhythm. There is no murmur. ABDOMEN: Soft and nontender. Bowel sounds are present. EXTREMITIES: There is no pedal edema. Peripheral pulses are present. Neurological examination: Patient's neurological examination is nonfocal. She is awake and alert today and is responsive to all questions. Neurological examination remains stable. - Labs CBC & Chem 7: 12/11/17 06:45 12/11/17 06:45 Labs: Abnormal Lab Results - Last 24 Hours (Table) 12/11/17 12/11/17 12/11/17 Range/Units 05:46 06:45 06:45 RBC 3.69 L (3.80-5.40) m/uL Hgb 9.9 L (11.4-16.0) gm/dL Hct 30.8 L (34.0-46.0) % Carbon Dioxide 31 H (22-30) mmol/L Creatinine 0.51 L (0.52-1.04) mg/dL Glucose 183 H (74-99) mg/dL POC Glucose (mg/dL) 204 H (75-99) mg/dL 12/11/17 12/11/17 12/11/17 Range/Units 11:10 16:29 20:18 RBC (3.80-5.40) m/uL Hgb (11.4-16.0) gm/dL Hct (34.0-46.0) % Carbon Dioxide (22-30) mmol/L Creatinine (0.52-1.04) mg/dL Glucose (74-99) mg/dL POC Glucose (mg/dL) 178 H 250 H 274 H (75-99) mg/dL Microbiology - Last 24 Hours (Table) 12/08/17 18:07 Blood Culture - Preliminary Blood No Growth after 72 hours Assessment and Plan (1) Occipital neuritis Current Visit: Yes Status: Acute Code(s): M54.81 - OCCIPITAL NEURALGIA SNOMED Code(s): 75038805 (2) Adrenal insufficiency Current Visit: No Status: Chronic Code(s): E27.40 - UNSPECIFIED ADRENOCORTICAL INSUFFICIENCY SNOMED Code(s): 024477580 (3) Generalized weakness Current Visit: Yes Status: Acute Code(s): R53.1 - WEAKNESS SNOMED Code(s) : 81146223 (4) UTI (urinary tract infection) Current Visit: No Status: Acute Code(s): N39.0 - URINARY TRACT INFECTION, SITE NOT SPECIFIED SNOMED Code(s): 72967434 Plan: This patient is a 67-year-old female who was admitted to hospital for generalized weakness. Patient has history of adrenal insufficiency and is now been treated for this condition with IV steroid therapy. She is doing much better today and is much more rested and less fatigue. She is being weaned off of her IV steroids. She is being scheduled for occipital nerve block procedure to be performed by anesthesia tomorrow. She continues to make good progress daily. Hopefully she will be able to be discharged home in the next few days. We will continue close neurological follow-up with the patient during this admission.
[2017-12-12] MEDS: SODIUM CHLORIDE 0.9% 1,000 ML IV SCH ×2 (00:47→10:46)
[2017-12-12] MEDS: HYDROmorphone 0.5 MG/0.5 ML SYRINGE IVP PRN ×7 (00:47→21:01)
[2017-12-12] MEDS: HEPARIN SODIUM,PORCINE 5,000 UNIT/ML 1 ML VIAL SQ SCH ×2 (01:30→20:49)
--- NOTE | 2017-12-12 04:03 | PN ---
PROGRESS NOTE DATE OF SERVICE: 12/11/2017. REASON FOR FOLLOW UP: UTI. INTERVAL HISTORY: The patient is afebrile. She has been breathing comfortably. Denies having any chest pain, shortness of breath, or cough. No abdominal pain or any diarrhea. EXAMINATION: Blood pressure 156/76, pulse of 83, temperature 98.3. She is 94% on room air. General description is an elderly female lying in bed in no distress. RESPIRATORY SYSTEM: Unlabored breathing. Clear to auscultation. HEART: S1, S2. Regular rate and rhythm. ABDOMEN: Soft, no tenderness. EXTREMITIES: No edema of the feet. LABS: Hemoglobin is 9.9, white count 6.8 with a BUN of 13, creatinine 0.51. DIAGNOSTIC IMPRESSION AND PLAN: Patient admitted to the hospital with a fever positive with concern for urinary tract infection and the patient did have multiple antibiotic allergy. Currently on Azactam with culture so far negative. Recommend discontinuation of the Azactam on discharge. Continue supportive care. MMODL / IJN: [id number] /
[2017-12-12] MEDS: HYDROCORTISONE SUCCINATE 100 MG/2 ML VIAL IVP SCH ×2 (04:14→12:42)
[2017-12-12] MEDS: ONDANSETRON 4 MG/2 ML VIAL IVP PRN ×2 (06:18→13:51)
[2017-12-12 07:28] LABS: Glucose,Whole Blood 168 mg/dL (75-99)
[2017-12-12] MEDS: INSULIN ASPART 100 UNIT/ML 1 ML 10 ML VIAL SQ SCH ×5 (07:41→20:49)
[2017-12-12] MEDS: PANTOPRAZOLE 40 MG/10 ML VIAL IVP SCH ×2 (07:41→17:37)
[2017-12-12] MEDS ORDERED: fentaNYL (PF) 50 MCG/ML 2 ML AMP IVP ONE (08:44)
[2017-12-12] MEDS ORDERED: MIDAZOLAM 2 MG/2 ML VIAL IVP ONE (08:45)
[2017-12-12] MEDS ORDERED: ROPIVACAINE 5MG/ML 20ML VIAL MISCELLANE ONE (08:47)
[2017-12-12] MEDS ORDERED: TRIAMCINOLONE ACETONIDE 40 MG/ML 1 ML VIAL INTRADERMA ONE (08:47)
[2017-12-12] MEDS ORDERED: IV FLUID CONTINUATION 1,000 ML IV ONE (08:52)
--- NOTE | 2017-12-12 10:37 | P.PCN ---
Date of Procedure: 12/12/17 Procedure(s) Performed: Preoperative diagnoses= 1- Greater occipital neuralgia Postoperative diagnoses= same as preoperative diagnosis. Procedure= Bilateral Greater occipital nerve block Anesthesia= moderate sedation with Versed 1 mg and fentanyl 50 micrograms and local infiltration with lidocaine 1% 4 ml Estimated blood loss=minimal. Procedure indication= the patient had a history of severe chronic neck pain , and headache, diagnosed with occipital neuralgia ,exam was positive for severe tenderness over the occipital nerve bilaterally, she will be a good candidate occipital nerve block, patient failed conservative management Procedure description= the patient was seen and identified in the preoperative holding area, risks and benefits and alternative of the procedure and possible complications ,discussed with the patient, and she agreed with the preceding, patient signed the consent, an IV was started, and vital signs were monitored and were stable throughout the procedure, patient was placed in the sitting position or table and the neck area was prepped and draped with a sterile fashion, vital signs were closely monitored during the procedure, 25-gauge needle advanced 1 inch lateral to the occipital protuberance on the right side , at the location of the right occipital nerve , then after negative aspiration for heme and CSF and there was no paresthesia during the injection, 8 ml of Robivacaine 0.5% and 20 mg of Kenalog injected after negative aspiration, the needle removed, and the entire same procedure was repeated for the left Greater occipital nerve. Patient tolerated the procedure well without any complication, The patient returned to supine position after the back was cleaned and a Band- Aid applied, the patient transported to recovery room in stable condition and he was monitored for 30 minutes before he was discharged home and then patient was reexamined before going home and patient was discharged in stable condition and patient will follow up with the pain clinic in a few weeks .
[2017-12-12] MEDS: AZTREONAM 1 GM in SODIUM CHLORIDE 0.9% 50 ML IVPB SCH ×2 (10:46→23:03)
[2017-12-12 11:36] LABS: Glucose,Whole Blood 178 mg/dL (75-99)
[2017-12-12] MEDS: MULTIVITAMINS, THERA 1 EACH TAB PO SCH (12:42)
[2017-12-12] MEDS: THIAMINE 100 MG TAB PO SCH (12:42)
[2017-12-12] MEDS: FOLIC ACID 1 MG TAB PO SCH (12:43)
[2017-12-12] MEDS ORDERED: INSULIN DETEMIR 100 UNIT/ML 10 ML VIAL SQ SCH (16:01)
--- NOTE | 2017-12-12 16:19 | PN ---
PROGRESS NOTE DATE OF SERVICE: 12/12/2017 This 67-year-old woman who was admitted with generalized weakness and tiredness , had UTI with sepsis and acute is improving significantly. No chest pain. No palpitations. No fever. EXAM: Alert and oriented times three. Pulse is 95. Blood pressure 140/72, respiration 16, temperature 98.8, pulse ox 91% on room air. HEENT: Conjunctivae normal. NECK: No jugular venous distention. CARDIOVASCULAR: S1, S2 muffled. Respirations: Breath sounds diminished in the bases. A few rhonchi. No crackles. Abdomen is soft, nontender. Legs: No edema. No swelling. Central nervous system: No focal deficits. LABS: WBC 6.9, hemoglobin 9.9. ASSESSMENT: 1. Generalized weakness, tiredness, fever with possible acute urinary tract infection with sepsis, present on admission. 2. Acute adrenal crisis. 3. History of hypoadrenal crisis previously. 4. ST-T changes on the EKG. 5. History of urolithiasis. 6. Diabetes type 2. 7. History of chronic obstructive pulmonary disease. 8. History of deep vein thrombosis. 9. History of fibromyalgia. 10.Status post occipital nerve block for headaches. 11.Hyperlipidemia. 12.History of appendectomy. 13.Methicillin-resistant Staphylococcus aureus. RECOMMENDATIONS AND DISCUSSION: Recommend to continue current medications, management and symptomatic treatment. Otherwise, at this time, I would recommend to continue with current medications. Taper the steroids. We will talk to the patient's cat skinner at the patient's request. That is Dr. Frank Carpenter at [phone] and otherwise continue the rest of medications. Cultures are negative so far. Further recommendations to follow. MMODL / IJN: [id number] / MTDTara
[2017-12-12] MEDS: HYDROCORTISONE 10 MG TAB PO SCH ×2 (16:30→21:01)
[2017-12-12 17:04] LABS: Glucose,Whole Blood 279 mg/dL (75-99)
[2017-12-12] MEDS ORDERED: INSULIN ASPART 100 UNIT/ML 1 ML 10 ML VIAL SQ SCH (17:30)
[2017-12-12 20:07] LABS: Glucose,Whole Blood 250 mg/dL (75-99)
--- NOTE | 2017-12-12 21:16 | P.PN ---
Subjective Progress Note Date: 12/12/17 This patient is a 67-year-old female who was admitted to hospital with generalized weakness and bilateral headache. Patient was found to have evidence of occipital neuritis. We have consulted anesthesia for bilateral occipital nerve block procedure for treatment of this patient. She is being treated for adrenal insufficiency and is currently being followed by multiple specialists. The patient is showing improvement overall today and has been started on IV Solu-Medrol. She is also been seen by infectious disease for urinary tract infection. She has been switched on antibiotics and is currently taking Azactam until her urine cultures are finalized. Overall the patient is feeling better. She states she is likely to be scheduled for occipital nerve block procedure tomorrow. Cardiology has evaluated the patient for shortness of breath. Her cardiac enzymes are normal. 2-D echo showed left ventricular hypertrophy with preserved LV function. The patient states that her dose of steroid was increased today. Her Cortef dose was nearly doubled. This was after consult with her electrocardiograph technician and the primary admitting physician. She does continue to show improvement in her overall strength and she appears much more awake and alert. She does not seem his fatigue. She was able to undergo bilateral occipital nerve block procedure this morning and it has helped. We have explained to the patient that occipital neuritis may take a few days to respond to the nerve block procedure. We will continue to follow her progress closely. Her overall prognosis at this time remains guarded. Objective - Vital Signs Vital signs: Vital Signs Temp 98.9 F 12/12/17 14:36 Pulse 95 12/12/17 16:00 Resp 16 12/12/17 16:00 BP 148/78 12/12/17 14:36 Pulse Ox 91 L 12/12/17 14:36 Intake & Output 12/11/17 12/12/17 12/12/17 18:59 06:59 18:59 Intake Total 1490 1140 750 Output Total 825 Balance 665 1140 750 Weight 72.9 kg Intake: IV 1250 900 750 Aztreonam 1 gm In Sodium 50 100 Chloride 0.9% 50 ml @ 100 mls/hr IVPB Q12H [facility] Rx# :[id number] Sodium Chloride 0.9% 1, 1200 800 700 000 ml @ 100 mls/hr IV . Q10H [facility] Rx#:[id number] Oral 240 240 Output: Urine 825 Other: Voiding Method Bedside Commode Bedside Commode Bedside Commode # Voids 1 1 1 # Bowel Movements 1 - Exam Physical examination: PHYSICAL EXAMINATION: Patient is resting comfortably in bed. VITAL SIGNS: Blood pressure is [148/78]. Heart rate is [95]. Respiration is [16] . Temperature is [98.9]. HEENT: Head is atraumatic, neck is supple, there were no carotid bruits. CHEST: Lungs are clear to auscultation and percussion. CARDIAC: S1, S2 normal rate and rhythm. There is no murmur. ABDOMEN: Soft and nontender. Bowel sounds are present. EXTREMITIES: There is no pedal edema. Peripheral pulses are present. Neurological examination: Patient's neurological examination is nonfocal. She is awake and alert today and is responsive to all questions. Neurological examination remains stable. - Labs CBC & Chem 7: 12/11/17 06:45 12/11/17 06:45 Labs: Abnormal Lab Results - Last 24 Hours (Table) 12/11/17 12/12/17 12/12/17 Range/Units 20:18 07:19 11:26 POC Glucose (mg/dL) 274 H 168 H 178 H (75-99) mg/dL 12/12/17 Range/Units 17:00 POC Glucose (mg/dL) 279 H (75-99) mg/dL Microbiology - Last 24 Hours (Table) 12/08/17 18:07 Blood Culture - Preliminary Blood No Growth after 72 hours Assessment and Plan (1) Occipital neuritis Current Visit: Yes Status: Acute Code(s): M54.81 - OCCIPITAL NEURALGIA SNOMED Code(s): 82370766 (2) Adrenal insufficiency Current Visit: No Status: Chronic Code(s): E27.40 - UNSPECIFIED ADRENOCORTICAL INSUFFICIENCY SNOMED Code(s): 309883030 (3) Generalized weakness Current Visit: Yes Status: Acute Code(s): R53.1 - WEAKNESS SNOMED Code(s) : 70011354 (4) UTI (urinary tract infection) Current Visit: No Status: Acute Code(s): N39.0 - URINARY TRACT INFECTION, SITE NOT SPECIFIED SNOMED Code(s): 52414566 Plan: This patient is a 67-year-old female who was admitted with symptoms of acute adrenal crisis. She has a history of adrenal insufficiency in the past. She was admitted and started on IV Solu-Medrol and Cortef. She also had evidence of acute urinary tract infection which is being followed by the infectious disease specialist. Her culture reports less far been negative so far. She is to continue on current antibiotics as per infectious disease. The patient was able to undergo bilateral occipital nerve block procedure for headache management. She seems to be doing much better with this today. It may take one or 2 days to see the maximum effect of this occipital block. The patient overall is doing much better and is much more energetic. She is able to follow all commands. We will continue to follow her progress closely during this admission. Patient states that her electrocardiograph technician was contacted today and her dose of Cortef was increased. We will continue to follow her closely. Her overall prognosis at this time remains guarded.
--- NOTE | 2017-12-12 22:56 | PN ---
PROGRESS NOTE DATE OF SERVICE: 12/12/2017. REASON FOR FOLLOWUP: Urinary tract infection. INTERVAL HISTORY: The patient is afebrile. She is breathing comfortably. Denies having any chest pain or shortness of breath or cough. No abdominal pain or diarrhea. EXAMINATION: Blood pressure 148/78 with a pulse of 95, temperature 98.9. She is 91% on room air. General description is an elderly female, lying in bed in no distress. RESPIRATORY SYSTEM: Unlabored breathing. Clear to auscultation anteriorly. HEART: S1, S2. Regular rate and rhythm. ABDOMEN: Soft. No tenderness. LABS: No new labs have been obtained today. DIAGNOSTIC IMPRESSION AND PLAN: Patient with urinary tract infection, adequately treated. Azactam can be discontinued on discharge. Continue with supportive care. MMODL / IJN: [id number] /
--- NOTE | 2017-12-13 00:12 | US ---
EXAMINATION TYPE: US venous doppler duplex LE RT DATE OF EXAM: 12/12/2017 11:50 PM COMPARISON: NONE CLINICAL HISTORY: lump on leggett. Lump on leggett near ankle right leg. SIDE PERFORMED: Right TECHNIQUE: The lower extremity deep venous system is examined utilizing real time linear array sonog acosta with graded compression, doppler sonography and color-flow sonography. VESSELS IMAGED: External Iliac Vein (EIV) Common Femoral Vein Deep Femoral Vein Greater Saphenous Vein * Femoral Vein Popliteal Vein Small Saphenous Vein * Proximal Calf Veins (* superficial vessels) Right Leg: Negative for DVT No evidence of DVT right leg. IMPRESSION: Normal exam. No evidence of deep venous thrombosis in the right leg.
[2017-12-13] MEDS: HYDROmorphone 0.5 MG/0.5 ML SYRINGE IVP PRN ×2 (01:14→11:48)
[2017-12-13 06:49] LABS: Glucose,Whole Blood 131 mg/dL (75-99)
[2017-12-13] MEDS ORDERED: INSULIN ASPART 100 UNIT/ML 1 ML 10 ML VIAL SQ SCH ×2 (07:30→12:30)
[2017-12-13] MEDS: INSULIN ASPART 100 UNIT/ML 1 ML 10 ML VIAL SQ SCH ×2 (10:50→11:33)
[2017-12-13] MEDS: HYDROCORTISONE 10 MG TAB PO SCH (10:50)
[2017-12-13] MEDS: PANTOPRAZOLE 40 MG/10 ML VIAL IVP SCH (10:50)
[2017-12-13] MEDS: HEPARIN SODIUM,PORCINE 5,000 UNIT/ML 1 ML VIAL SQ SCH (10:50)
[2017-12-13 11:09] LABS: Glucose,Whole Blood 80 mg/dL (75-99)
[2017-12-13] MEDS: FOLIC ACID 1 MG TAB PO SCH (11:44)
[2017-12-13] MEDS: MULTIVITAMINS, THERA 1 EACH TAB PO SCH (11:44)
[2017-12-13] MEDS: THIAMINE 100 MG TAB PO SCH (11:45)
[2017-12-13] MEDS: AZTREONAM 1 GM in SODIUM CHLORIDE 0.9% 50 ML IVPB SCH (12:29)
[2017-12-13 12:40] VITALS: PULSE 56; RESP 12; TEMP 98.3
[2017-12-13 15:16] VITALS: BP 149/76
--- NOTE | 2017-12-13 15:33 | PN ---
PROGRESS NOTE DATE OF SERVICE: 12/13/2017 REASON FOR FOLLOWUP: Urinary tract infection. . INTERVAL HISTORY: The patient is afebrile. She is currently breathing comfortably. Denies having any chest pain. No shortness of breath, no cough, no abdominal pain or any diarrhea. PHYSICAL EXAMINATION: Blood pressure 152/83 with a pulse of 56, temperature 98.3. She is a 97% on room air. General description is a elderly female up in the bed in no distress. RESPIRATORY SYSTEM: Unlabored breathing, clear to auscultation anteriorly. HEART: S1, S2. Regular rate and rhythm. ABDOMEN: Soft, no tenderness LABS: Some blood and urine cultures remain to be negative. DIAGNOSTIC IMPRESSION AND PLAN: Patient with low-grade fever with concern for possible urinary tract infection and the urine was positive. No other clinical focus of infection. Patient at this time due to underlying urinary tract infection has been adequately treated. No need for antibiotic on discharge. Continue supportive care. MMODL / IJN: [id number] /
--- NOTE | 2017-12-13 16:41 | DS ---
DISCHARGE SUMMARY DATE OF SERVICE: 12/13/2017 FINAL DIAGNOSES: 1. Generalized weakness and tiredness, fever, with possible acute urinary tract infection with sepsis, present on admission. 2. Acute adrenal crisis, improved. 3. History of hypoadrenal crisis previously. 4. ST-T changes on EKG. 5. History of urolithiasis. 6. Diabetes mellitus, type 2. 7. Chronic obstructive pulmonary disease. 8. History of deep venous thrombosis. 9. History of fibromyalgia. 10.History of occipital nerve block for headaches. 11.Hyperlipidemia. 12.History of appendectomy. 13.History of methicillin-resistant Staphylococcus aeruginosa. DISCHARGE DISPOSITION: The patient will be discharged in stable condition with guarded prognosis. HISTORY OF PRESENT ILLNESS: This 67-year-old woman with past medical was history of multiple medical problems was admitted with generalized weakness, tiredness, fever, possible UTI with sepsis. Patient was given broad-spectrum IV antibiotics. Cultures are negative so far. The patient also had acute adrenal crisis which was treated with hydrocortisone. Patient improved significantly. Patient also had ST-T changes on the EKG. The patient also had occipital nerve block, and Cardiology recommended outpatient stress test. The patient improved significantly with treatment. I have talked to Dr. Frank Carpenter, the patient's human performance consultant, at . Recommended Cortef slow taper to 15 mg t.i.d. for 2 days and 15/10/10 for 2 days and then 15/10/5. Then evaluate in outpatient with the urine cortisol levels. Discussed with the patient, who understands and agrees. On exam, vitals are stable. CARDIOVASCULAR SYSTEM: S1, S2 muffled. ABDOMEN: Soft. NERVOUS SYSTEM: No focal deficit. DISCHARGE ADVICE AND MEDICATIONS: 1. Diet is cardiac. 2. Activity limited until followup. 3. Follow up with Dr. Guardado in 2-3 days. 4. Follow up with Dr. Barry and [facility] as advised. 5. Follow up with Dr. Osman, Infectious Disease, as advised. 6. Norvasc 5 mg p.o. daily. 7. Ascorbic acid/multivitamins 1 p.o. daily. 8. Aspirin 81 mg p.o. daily. 9. Lipitor 20 mg at bedtime. 10.Vitamin D3 3000 daily. 11.Compounding ointment. 12.Cranberry 600 mg p.o. daily. 13.Curamin 2 capsules p.o. daily. 14.[place] 10 mg 1 to 2 tablets q.4 p.r.n. 15.Insulin 18, 18 and 16 (NovoLog FlexPen) and Lantus 30 units subcutaneously at bedtime. 16.Multivitamins 1 p.o. daily. 17.Prinivil 20 mg daily. 18.Meclizine p.r.n. 19.Melatonin 5 mg p.r.n. 20.Toprol XL 50 mg at bedtime. 21.Zofran 4 mg q.6 p.r.n. 22.Promethazine p.r.n. 23.Folic acid 1 mg daily. 24.Multivitamins 1 p.o. daily. 25.Protonix 40 mg p.o. b.i.d. 26.Thiamine 100 mg p.o. daily. Once again, the patient will be discharged in stable condition with guarded prognosis. MMODL / SAMN: [id number] /
[2017-12-13] MEDS ORDERED: PANTOPRAZOLE 40 MG TABLET PO SCH (17:30)
[2017-12-13] MEDS ORDERED: METOPROLOL TARTRATE 50 MG TAB PO SCH (21:00)
[2017-12-14] MEDS ORDERED: amLODIPine 5 MG TAB PO SCH (09:00)
== END 2017-12-13 15:41 | disposition home or self-care (01) | DRG 872 ==
LOC: EC 09:03 → 6SEL 13:14 → OBSVTOIN 12-09 14:42 → 5MS5E 12-11 21:57
PROVIDERS: ADMIT Hospitalist; ATTEND Hospitalist
PROC: 3E0T33Z Introduction of Anti-inflammatory into Peripheral Nerves and Plexi, Percutaneous Approach (ICD-10-PCS; 2017-12-12)
PROC: 3E0T3BZ Introduction of Anesthetic Agent into Peripheral Nerves and Plexi, Percutaneous Approach (ICD-10-PCS; principal; 2017-12-12 08:13)
DX: A41.9 Sepsis, unspecified organism (principal); N39.0 Urinary tract infection, site not specified; E27.2 Addisonian crisis; E11.42 Type 2 diabetes mellitus with diabetic polyneuropathy; I11.9 Hypertensive heart disease without heart failure; J44.9 Chronic obstructive pulmonary disease, unspecified; M54.81 Occipital neuralgia; G89.29 Other chronic pain; M54.2 Cervicalgia; G43.909 Migraine, unspecified, not intractable, without status migrainosus; E78.5 Hyperlipidemia, unspecified; G47.33 Obstructive sleep apnea (adult) (pediatric); M19.91 Primary osteoarthritis, unspecified site; M79.7 Fibromyalgia; I83.90 Asymptomatic varicose veins of unspecified lower extremity; E66.9 Obesity, unspecified; Z68.31 Body mass index [BMI] 31.0-31.9, adult; Z71.3 Dietary counseling and surveillance; Z79.82 Long term (current) use of aspirin; Z79.4 Long term (current) use of insulin; Z79.52 Long term (current) use of systemic steroids; Z79.899 Other long term (current) drug therapy; Z86.718 Personal history of other venous thrombosis and embolism; Z87.442 Personal history of urinary calculi; Z86.14 Personal history of Methicillin resistant Staphylococcus aureus infection; Z90.49 Acquired absence of other specified parts of digestive tract; Z90.710 Acquired absence of both cervix and uterus; Z98.42 Cataract extraction status, left eye; Z98.41 Cataract extraction status, right eye; Z89.421 Acquired absence of other right toe(s); Z90.722 Acquired absence of ovaries, bilateral; Z88.1 Allergy status to other antibiotic agents; Z88.5 Allergy status to narcotic agent; Z88.0 Allergy status to penicillin; Z88.2 Allergy status to sulfonamides; Z88.8 Allergy status to other drugs, medicaments and biological substances; Z83.2 Family history of diseases of the blood and blood-forming organs and certain disorders involving the immune mechanism
CPT/HCPCS: 36415; 64405; 70450; 71046; 80048; 80053; 80061; 81001; 82550; 82553; 83036; 83605; 83735; 84484; 84550; 85025; 85610; 85730; 87040; 87086; 93005; 93306; 96361; 96374; 96375; 96376; 99285

== ENCOUNTER → 2018-01-02 | Outpatient (CLI) | payer MEDICARE, BC ==
[2018-01-02 15:26] LABS: Collection Time,Urine 24 hrs; Total Volume 24 Hour,Urine 850 mls (250-2400)
[2018-01-02 15:42] LABS: Sodium 24 Hour,Urine 97 mmol/24 (40-220)
[2018-01-02 15:43] LABS: Calcium 24 Hour,Urine 66.3 mg/24 hr; Creatinine 24 Hour,Urine 494.7 mg/24hr (800.0-1800.0)
== END | disposition home or self-care (01) ==
LOC: LABWHC1 13:10
PROVIDERS: ATTEND Internal Medicine Endocrinology, Diabetes & Metabolism
DX: E78.2 Mixed hyperlipidemia (principal); E11.65 Type 2 diabetes mellitus with hyperglycemia; E11.21 Type 2 diabetes mellitus with diabetic nephropathy; E03.9 Hypothyroidism, unspecified
CPT/HCPCS: 36415; 81050; 82340; 82530; 82575; 84300

== ENCOUNTER 2018-03-01 07:46 | Day surgery (SDC) | payer MEDICARE, BC ==
[2018-02-26 15:59] VITALS: BMI 32.2
[~2018-03-01 07:46] MED LIST: LACTATED RINGERS 1,000 ML IV SCH
[2018-03-01 08:39] VITALS: RESP 16; TEMP 98.2
[2018-03-01 08:45] LABS: Glucose,Whole Blood 150 mg/dL (75-99)
[2018-03-01] MEDS ORDERED: LIDOCAINE 1% 20 ML VIAL (10MG/ML) FOR IV START INTRADERMA ONE (08:50)
--- NOTE | 2018-03-01 09:47 | P.PCN ---
Date of Procedure: 03/01/18 Surgeon: Lilly Roberson Description of Procedure: Procedure(s) Performed: Preoperative diagnoses= 1- Greater occipital neuralgia Postoperative diagnoses= same as preoperative diagnosis. Procedure= Bilateral Greater occipital nerve block Anesthesia= moderate sedation with Versed 1 mg and fentanyl 50 micrograms and local infiltration with lidocaine 1% 4 ml Estimated blood loss=minimal. Procedure indication= the patient had a history of severe chronic neck pain , and headache, diagnosed with occipital neuralgia ,exam was positive for severe tenderness over the occipital nerve bilaterally, she will be a good candidate occipital nerve block, patient failed conservative management Procedure description= the patient was seen and identified in the preoperative holding area, risks and benefits and alternative of the procedure and possible complications ,discussed with the patient, and she agreed with the preceding, patient signed the consent, an IV was started, and vital signs were monitored and were stable throughout the procedure, patient was placed in the sitting position or table and the neck area was prepped and draped with a sterile fashion, vital signs were closely monitored during the procedure, 25-gauge needle advanced 1 inch lateral to the occipital protuberance on the right side , at the location of the right occipital nerve , then after negative aspiration for heme and CSF and there was no paresthesia during the injection, 2ml of Robivacaine 0.5% and 20 mg of Kenalog injected after negative aspiration on each side,, the needle removed, and the entire same procedure was repeated for the left Greater occipital nerve. Patient tolerated the procedure well without any complication, The patient returned to supine position after the back was cleaned and a Band- Aid applied, the patient transported to recovery room in stable condition and he was monitored for 30 minutes before he was discharged home and then patient was reexamined before going home and patient was discharged in stable condition and patient will follow up with the pain clinic in a few weeks .
[2018-03-01] MEDS ORDERED: IV FLUID CONTINUATION 1,000 ML IV ONE (09:55)
[2018-03-01 10:07] VITALS: BP 132/73; PULSE 68
== END 2018-03-01 10:31 | disposition home or self-care (01) ==
LOC: ORPAIN 07:46
PROVIDERS: ATTEND Anesthesiology
DX: G89.29 Other chronic pain (principal); M54.81 Occipital neuralgia; E11.9 Type 2 diabetes mellitus without complications; I10 Essential (primary) hypertension; E27.40 Unspecified adrenocortical insufficiency; M79.7 Fibromyalgia; J44.9 Chronic obstructive pulmonary disease, unspecified; M19.90 Unspecified osteoarthritis, unspecified site; Z87.442 Personal history of urinary calculi; Z91.09 Other allergy status, other than to drugs and biological substances
CPT/HCPCS: 64405; J2250; J3301; J3010

== ENCOUNTER → 2018-04-05 | Outpatient (CLI) | payer MEDICARE, BC ==
[2018-04-05 09:56] LABS: Anisocytosis Slight; Basophils % (A) 0 %; Eosinophils % (A) 0 %; HCT 35.1 % (34.0-46.0); HGB 10.6 gm/dL (11.4-16.0); Hypochromasia Marked; Lymphocytes % (A) 13 %; MCH 23.5 pg (25.0-35.0); MCHC 30.3 g/dL (31.0-37.0); MCV 77.5 fL (80.0-100.0); Mean Platelet Volume 7.4; Microcytosis Slight; Monocytes # (A) 0.4 k/uL (0-1.0); Monocytes % (A) 5 %; Neutrophils # (A) 6.2 k/uL (1.3-7.7); Neutrophils % (A) 81 %; Platelet Count 265 k/uL (150-450); RBC 4.52 m/uL (3.80-5.40); RDW 16.2 % (11.5-15.5); WBC 7.7 k/uL (3.8-10.6)
[2018-04-05 10:27] LABS: ALT 27 U/L (9-52); AST 22 U/L (14-36); Albumin 4.1 g/dL (3.5-5.0); Alkaline Phosphatase 57 U/L (38-126); Anion Gap 6 mmol/L; Blood Urea Nitrogen 24 mg/dL (7-17); Calcium 10.7 mg/dL (8.4-10.2); Carbon Dioxide 32 mmol/L (22-30); Chloride 101 mmol/L (98-107); Cholesterol 166 mg/dL (<200); Glucose 162 mg/dL (74-99); HDL Cholesterol 68 mg/dL (40-60); LDL Cholesterol,Calculated 77 mg/dL (0-99); Potassium 5.1 mmol/L (3.5-5.1); Sodium 139 mmol/L (137-145); Total Protein 6.7 g/dL (6.3-8.2); Triglycerides 104 mg/dL (<150)
--- NOTE | 2018-04-09 08:47 | MM ---
Reason for exam: screening (asymptomatic). Last mammogram was performed 1 year and 1 month ago. History: Patient is postmenopausal. Family history of breast cancer in 2 paternal cousins at age 60. Reductions of both breasts, September 2009. Took estrogen for 30 years beginning at age 27. Physical Findings: A clinical breast exam by your physician is recommended on an annual basis and results should be correlated with mammographic findings. MG 3D Screening Mammo W/Cad Bilateral CC and MLO view(s) were taken. Prior study comparison: March 07, 2017, bilateral MG 3d screening mammo w/cad. January 12, 2016, bilateral MG 3d screening mammo w/cad. The breast tissue is heterogeneously dense. This may lower the sensitivity of mammography. Benign appearing bilateral calcifications. No suspicious abnormality. No significant changes when compared with prior studies. ASSESSMENT: Benign, BI-RAD 2 RECOMMENDATION: Routine screening mammogram of both breasts in 1 year.
== END | disposition home or self-care (01) ==
LOC: RADMAMWWP 08:53
PROVIDERS: ATTEND Family Medicine
DX: Z12.31 Encounter for screening mammogram for malignant neoplasm of breast (principal); E11.65 Type 2 diabetes mellitus with hyperglycemia; E11.21 Type 2 diabetes mellitus with diabetic nephropathy; E78.5 Hyperlipidemia, unspecified; R53.83 Other fatigue
CPT/HCPCS: 36415; 77063; 77067; 80053; 80061; 82043; 82570; 83970; 85025

== ENCOUNTER 2018-05-12 16:52 | Emergency (ER) | payer MEDICARE, BC ==
[2018-05-12 17:07] VITALS: BP 156/84; PULSE 73; RESP 18; TEMP 97.8
--- NOTE | 2018-05-12 17:42 | ED ---
General Adult HPI - General Source: patient, RN notes reviewed Mode of arrival: wheelchair Limitations: no limitations <Mo Frausto - Last Filed: 05/12/18 17:40> <Collin Schwarz - Last Filed: 05/12/18 20:58> - General Chief complaint: Urogenital Stated complaint: poss kidney stones Time Seen by Provider: 05/12/18 17:09 - History of Present Illness Initial comments: Patient 67-year-old female presenting to the emergency room today with chief complaint of abdominal pain. Patient states that she's had some right-sided flank pain. She doesn't that it feels similar to kidney stones that she's had in the past. Patient states she is also worried about a urinary tract infection. She states the symptoms started approximately 2 weeks ago was some increased urination and dysuria. Patient also admits that appetites been decreased. States she is diabetic. Patient doesn't nausea. Denies any other complaints or symptoms. Patient denies any recent fever, chills, shortness of breath, chest pain, constipation or diarrhea, headaches or visual changes, or any other complaints. (Mo Frausto) - Related Data Home Medications Medication Instructions Recorded Confirmed Aspirin 81 mg PO DAILY 12/01/14 03/01/18 Atorvastatin Calcium [Lipitor] 20 mg PO HS 12/01/14 03/01/18 Cholecalciferol [Vitamin D3] 3,000 unit PO QAM 12/01/14 03/01/18 Lisinopril [Prinivil] 20 mg PO QAM 12/01/14 02/26/18 L.acidoph,Paracasei, B.lactis 2 cap PO BID 10/12/15 03/01/18 [Probiotic] Ondansetron [Zofran] 4 mg PO Q6H PRN 10/12/15 03/01/18 amLODIPine [Norvasc] 5 mg PO DAILY 11/17/15 02/26/18 Cranberry 300mg 300 mg PO BID 07/06/17 03/01/18 HYDROcodone/APAP 10-325MG [[place] 1 tab PO 5XD PRN 07/06/17 02/26/18 10-325] Insulin Aspart [NovoLOG Flexpen] 14 units SQ AC-BRKFST 07/06/17 03/01/18 Insulin Aspart [NovoLOG Flexpen] 18 unit SQ AC-SUPPER 07/06/17 03/01/18 Insulin Aspart [NovoLOG Flexpen] 18 units SQ AC-LUNCH 07/06/17 03/01/18 Liquid Health Multiple 30 ml PO DAILY 07/06/17 03/01/18 Metoprolol Succinate (ER) [Toprol 50 mg PO HS 07/06/17 03/01/18 XL] Meclizine [Antivert] 25 mg PO TID PRN 11/26/17 03/01/18 Folic Acid 1 mg PO QAM 02/26/18 03/01/18 Hydrocortisone [Cortef] 5 mg PO PC-SUPPER 02/26/18 03/01/18 Hydrocortisone [Cortef] 10 mg PO 0700,1400 02/26/18 03/01/18 Insulin Glargine,Hum.rec.anlog 30 unit SQ 02/26/18 03/01/18 [Lantus Solostar] Magnesium Oxide 400 mg PO QAM 02/26/18 03/01/18 Pantoprazole [Protonix] 40 mg PO QAM 02/26/18 02/26/18 Thiamine [Vitamin B-1] 100 mg PO DAILY 02/26/18 03/01/18 Vitamin B Complex Drops 1 drop PO BID 02/26/18 03/01/18 Allergies Allergy/AdvReac Type Severity Reaction Status Date / Time butorphanol tartrate Allergy BLISTERS Verified 05/12/18 17:07 [From Stadol] IN MOUTH ceftriaxone [From Rocephin] Allergy Unknown Verified 05/12/18 17:07 clarithromycin [From Biaxin] Allergy Rash/Hives Verified 05/12/18 17:07 codeine Allergy Rash/Hives Verified 05/12/18 17:07 ergotamine tartrate Allergy Unknown Verified 05/12/18 17:07 [From Cafergot] erythromycin base Allergy RASH, GI Verified 05/12/18 17:07 [From E-Mycin] SYMPTOMS ketorolac tromethamine Allergy Rash/Hives Verified 05/12/18 17:07 [From Toradol] liraglutide [From Victoza] Allergy Rash/Hives Verified 05/12/18 17:07 monosodium glutamate [MSG] Allergy Nausea & Verified 05/12/18 17:07 Vomiting morphine Allergy Rash/Hives Verified 05/12/18 17:07 nalbuphine HCl [From Nubain] Allergy Nausea & Verified 05/12/18 17:07 Vomiting Penicillins Allergy Rash/Hives Verified 05/12/18 17:07 pentazocine lactate Allergy SEVERE Verified 05/12/18 17:07 [From Talwin] BLISTERS IN MOUTH pregabalin [From Lyrica] Allergy Rash/Hives Verified 05/12/18 17:07 propoxyphene HCl Allergy Rash/Hives Verified 05/12/18 17:07 [From Darvon] Sulfa (Sulfonamide Allergy Rash/Hives Verified 05/12/18 17:07 Antibiotics) tramadol Allergy Unknown Verified 05/12/18 17:07 Review of Systems ROS Other: All systems not noted in ROS Statement are negative. <Mo Frausto - Last Filed: 05/12/18 17:40> ROS Other: All systems not noted in ROS Statement are negative. <Collin Schwarz - Last Filed: 05/12/18 20:58> ROS Statement: Those systems with pertinent positive or pertinent negative responses have been documented in the HPI. 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 Date of last positivie culture/infection: 2012 MDRO Source:: 4th rt toe Past Surgical History: Appendectomy, Back Surgery, Bladder Surgery, Cholecystectomy, Hysterectomy, Orthopedic Surgery, Tonsillectomy Additional Past Surgical History / Comment(s): EXC TUMOR RT ARM; OVARIAN CYST EXC; NADEEN fallopian tubes and OVARIES REMOVED; 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; EXC NADEEN CATARACTS; KIDNEY STONE REMOVALS Past Anesthesia/Blood Transfusion Reactions: Motion Sickness Additional Past Anesthesia/Blood Transfusion Reaction / Comment(s): never recieved blood Past Psychological History: No Psychological Hx Reported Smoking Status: Never smoker - Past Family History Father Family Medical History: No Reported History, CVA/TIA Mother Family Medical History: Cancer Additional Family Medical History / Comment(s): uterine <FraustoMo - Last Filed: 05/12/18 17:40> General Exam Limitations: no limitations <Mo Frausto - Last Filed: 05/12/18 17:40> <Collin Schwarz - Last Filed: 05/12/18 20:58> - General Exam Comments Initial Comments: General: The patient is awake and alert, in no distress, and does not appear acutely ill. Eye: There is normal conjunctiva bilaterally. No signs of icterus. Ears, nose, mouth and throat: There are moist mucous membranes and no oral lesions. Neck: The neck is supple, there is no tenderness or JVD. Cardiovascular: There is a regular rate and rhythm. No murmur, rub or gallop is appreciated. Respiratory: Lungs are clear to auscultation, respirations are non-labored, breath sounds are equal. No wheezes, stridor, rales, or rhonchi. Gastrointestinal: Soft, non-distended, non-tender abdomen without masses or organomegaly noted. There is no rebound or guarding present. No CVA tenderness. Musculoskeletal: Normal ROM, no tenderness. Sensation intact. Strength 5/5. Pulses equal bilaterally 2+. Neurological: A&O x 3. CN II-XII intact, There are no obvious motor or sensory deficits. Coordination appears grossly intact. Speech is normal. Skin: Skin is warm and dry and no rashes or lesions are noted. Psychiatric: Cooperative, appropriate mood & affect, normal judgment. (Mo Frausto) Vital Signs 05/12/18 17:05 Temperature 97.8 F Pulse Rate 73 Respiratory 18 Rate Blood Pressure 156/84 O2 Sat by Pulse 99 Oximetry Medical Decision Making <Mo Frausto - Last Filed: 05/12/18 17:40> - Lab Data Result diagrams: 05/12/18 19:45 05/12/18 19:45 <Collin Schwarz - Last Filed: 05/12/18 20:58> - Medical Decision Making Patient care was signed out to me by previous shift physician blood bank assistant. Briefly, patient is 67-year-old female with history of nephrolithiasis presents with left-sided flank pain and left abdominal pain. Laboratory evaluation was performed without any significant findings. CT showed nephrolithiasis however no signs of hydronephrosis. Urinalysis did not show any signs of urinary tract infection. Patient reevaluated found to be in stable medical condition. She appears well. Told to follow-up with her urologist outpatient. (Collin Schwarz ) - Lab Data Lab Results 05/12/18 05/12/18 05/12/18 Range/Units 18:25 19:45 19:45 WBC 7.3 (3.8-10.6) k/uL RBC 5.17 (3.80-5.40) m/uL Hgb 12.1 (11.4-16.0) gm/dL Hct 39.7 (34.0-46.0) % MCV 76.8 L (80.0-100.0) fL MCH 23.3 L (25.0-35.0) pg MCHC 30.4 L (31.0-37.0) g/dL RDW 17.7 H (11.5-15.5) % Plt Count 268 (150-450) k/uL Neutrophils % 74 % Lymphocytes % 18 % Monocytes % 4 % Eosinophils % 2 % Basophils % 0 % Neutrophils # 5.4 (1.3-7.7) k/uL Lymphocytes # 1.3 (1.0-4.8) k/uL Monocytes # 0.3 (0-1.0) k/uL Eosinophils # 0.1 (0-0.7) k/uL Basophils # 0.0 (0-0.2) k/uL Hypochromasia Moderate Anisocytosis Slight Microcytosis Slight Sodium 139 (137-145) mmol/L Potassium 4.4 (3.5-5.1) mmol/L Chloride 104 (98-107) mmol/L Carbon Dioxide 27 (22-30) mmol/L Anion Gap 8 mmol/L BUN 14 (7-17) mg/dL Creatinine 0.71 (0.52-1.04) mg/dL Est GFR (CKD-EPI)AfAm >90 (>60 ml/min/1.73 sqM) Est GFR (CKD-EPI)NonAf 88 (>60 ml/min/1.73 sqM) Glucose 166 H (74-99) mg/dL Calcium 10.7 H (8.4-10.2) mg/dL Total Bilirubin 1.2 (0.2-1.3) mg/dL AST 24 (14-36) U/L ALT 28 (9-52) U/L Alkaline Phosphatase 65 (38-126) U/L Total Protein 6.7 (6.3-8.2) g/dL Albumin 4.1 (3.5-5.0) g/dL Amylase 40 (30-110) U/L Lipase 83 (23-300) U/L Urine Color Yellow Urine Appearance Clear (Clear) Urine pH 7.0 (5.0-8.0) Ur Specific [place] 1.014 (1.001-1.035) Urine Protein Negative (Negative) Urine Glucose (UA) Negative (Negative) Urine Ketones Negative (Negative) Urine Blood Negative (Negative) Urine Nitrite Negative (Negative) Urine Bilirubin Negative (Negative) Urine Urobilinogen <2.0 (<2.0) mg/dL Ur Leukocyte Esterase Negative (Negative) Disposition <Mo Frausto - Last Filed: 05/12/18 17:40> Is patient prescribed a controlled substance at d/c from ED?: No Time of Disposition: 20:58 <Collin Schwarz - Last Filed: 05/12/18 20:58> Clinical Impression: Nephrolithiasis Disposition: HOME SELF-CARE Condition: Good Instructions: Kidney Stones (ED) Referrals: Allyson Guardado MD [Primary Care Provider] - 1-2 days Tyler Hitchcock MD [STAFF PHYSICIAN] - 1-2 days
--- NOTE | 2018-05-12 18:23 | CT ---
EXAMINATION TYPE: CT abdomen pelvis wo con DATE OF EXAM: 05/12/2018 HISTORY: abdominal pain, left sided flank pain, hx of stones CT DLP: 600.69 mGycm. Automated Exposure Control for Dose Reduction was Utilized. TECHNIQUE: CT scan of the abdomen and pelvis is performed without oral or IV contrast. COMPARISON: CT abdomen pelvis November 26, 2017 FINDINGS: Within the limitations of a non-contrast study, the following observations are made. LUNG BASES: Cardiomegaly is redemonstrated. Coronary artery calcification is again seen which is note d marker for coronary artery disease. LIVER/GB: Cholecystectomy clips are redemonstrated. PANCREAS: No significant abnormality is seen. SPLEEN: No significant abnormality is seen. ADRENALS: No significant abnormality is seen. KIDNEYS: There are 7-8 small calculi scattered throughout the left kidney redemonstrated measuring up to 4 mm in size. No definitive right-sided nephrolithiasis. There are 2-3 phleboliths anterior to th e left mid ureter redemonstrated seen best coronal images 60 and 61. No hydronephrosis or obstructing ureter calculi are clearly seen. No intraluminal calculi in bladder are identified. There is simple appearing exophytic 2.5 cm cyst anteriorly upper pole level left kidney axial image 38. Stable smalle r 1.4 cm simple appearing cyst laterally mid pole level right kidney. Scattered pelvic phleboliths ar e redemonstrated. BOWEL: No significant abnormality is seen. GENITAL ORGANS: Uterus is surgically absent. LYMPH NODES: No greater than 1cm abdominal or pelvic lymph nodes are appreciated. OSSEOUS STRUCTURES: Old healed fracture deformities of bilateral superior and inferior pelvic rami ar e redemonstrated. Postsurgical change lower lumbar spine is again seen extending into upper sacrum. A lignment is stable and satisfactory. OTHER: Calcifications bilateral gluteal region likely injection granulomas are redemonstrated. Small- to-moderate sized fat-containing inguinal hernias are redemonstrated. Asymmetric right lateral muscul ar atrophy axial image 105 is noted at level of right thigh. IMPRESSION: Persistent left-sided nephrolithiasis felt increased in number from prior CT. No hydronep hrosis or obstructing ureter calculi clearly seen bilaterally. No acute finding identified on noncont rast CT to account for patient's symptoms.
[2018-05-12 18:34] LABS: Appearance,Urine Clear (Clear); Bilirubin,Urine Negative (Negative); Blood,Urine Negative (Negative); Color,Urine Yellow; Glucose,Urine (UA) Negative (Negative); Ketones,Urine Negative (Negative); Leukocyte Esterase,Urine Negative (Negative); Nitrite,Urine Negative (Negative); Protein,Urine Negative (Negative); Specific Gravity,Urine 1.014 (1.001-1.035); Urobilinogen,Urine <2.0 mg/dL (<2.0)
[2018-05-12] MEDS ORDERED: HYDROmorphone 1 MG/ML 1 ML SYRINGE IVP STA (19:13)
[2018-05-12] MEDS ORDERED: ONDANSETRON 4 MG/2 ML VIAL IVP STA (19:13)
[2018-05-12 20:11] LABS: Anisocytosis Slight; Basophils % (A) 0 %; Eosinophils # (A) 0.1 k/uL (0-0.7); Eosinophils % (A) 2 %; HCT 39.7 % (34.0-46.0); HGB 12.1 gm/dL (11.4-16.0); Hypochromasia Moderate; Lymphocytes # (A) 1.3 k/uL (1.0-4.8); Lymphocytes % (A) 18 %; MCH 23.3 pg (25.0-35.0); MCHC 30.4 g/dL (31.0-37.0); MCV 76.8 fL (80.0-100.0); Microcytosis Slight; Monocytes # (A) 0.3 k/uL (0-1.0); Monocytes % (A) 4 %; Neutrophils # (A) 5.4 k/uL (1.3-7.7); Neutrophils % (A) 74 %; Platelet Count 268 k/uL (150-450); RBC 5.17 m/uL (3.80-5.40); RDW 17.7 % (11.5-15.5); WBC 7.3 k/uL (3.8-10.6)
[2018-05-12 20:26] LABS: ALT 28 U/L (9-52); AST 24 U/L (14-36); Albumin 4.1 g/dL (3.5-5.0); Alkaline Phosphatase 65 U/L (38-126); Amylase 40 U/L (30-110); Anion Gap 8 mmol/L; Blood Urea Nitrogen 14 mg/dL (7-17); Calcium 10.7 mg/dL (8.4-10.2); Carbon Dioxide 27 mmol/L (22-30); Chloride 104 mmol/L (98-107); Glucose 166 mg/dL (74-99); Lipase 83 U/L (23-300); Potassium 4.4 mmol/L (3.5-5.1); Sodium 139 mmol/L (137-145); Total Bilirubin 1.2 mg/dL (0.2-1.3); Total Protein 6.7 g/dL (6.3-8.2)
[2018-05-12] MEDS ORDERED: methylPREDNISolone SOD SUCCI 125 MG/2 ML VIAL IV STA (21:07)
== END 2018-05-12 21:19 | disposition home or self-care (01) ==
LOC: EC 16:52
DX: N20.0 Calculus of kidney (principal); J44.9 Chronic obstructive pulmonary disease, unspecified; E11.40 Type 2 diabetes mellitus with diabetic neuropathy, unspecified; E78.5 Hyperlipidemia, unspecified; I10 Essential (primary) hypertension; D64.9 Anemia, unspecified; G47.30 Sleep apnea, unspecified; Z99.89 Dependence on other enabling machines and devices; Z86.14 Personal history of Methicillin resistant Staphylococcus aureus infection; Z90.49 Acquired absence of other specified parts of digestive tract; Z98.890 Other specified postprocedural states; Z90.710 Acquired absence of both cervix and uterus; Z90.722 Acquired absence of ovaries, bilateral; Z90.79 Acquired absence of other genital organ(s); Z87.442 Personal history of urinary calculi; Z87.440 Personal history of urinary (tract) infections; Z79.82 Long term (current) use of aspirin; Z79.4 Long term (current) use of insulin; Z79.52 Long term (current) use of systemic steroids; Z79.899 Other long term (current) drug therapy; Z88.5 Allergy status to narcotic agent; Z88.1 Allergy status to other antibiotic agents; Z88.6 Allergy status to analgesic agent; Z88.8 Allergy status to other drugs, medicaments and biological substances; Z88.0 Allergy status to penicillin; Z88.2 Allergy status to sulfonamides
CPT/HCPCS: 36415; 80053; 82150; 82009; 83690; 85025; 81003; 74176; 99284; 96374; 96375 ×2; J2930; J2405; J1170

== ENCOUNTER 2018-06-26 21:38 | Inpatient (IN) | payer MEDICARE, BC ==
[2018-06-26] MEDS ORDERED: HYDROmorphone 1 MG/ML 1 ML SYRINGE ONE (23:57)
[2018-06-27] MEDS ORDERED: HYDROcodone/APAP 5-325MG 1 EACH TAB ONE (03:30)
[2018-06-27] MEDS ORDERED: HYDROmorphone 1 MG/ML 1 ML SYRINGE ONE (03:30)
[2018-06-27 04:20] LABS: Anisocytosis Slight; Basophils % (A) 0 %; Eosinophils # (A) 0.1 k/uL (0-0.7); Eosinophils % (A) 1 %; HCT 42.3 % (34.0-46.0); HGB 13.2 gm/dL (11.4-16.0); Hypochromasia Slight; Lymphocytes # (A) 0.9 k/uL (1.0-4.8); Lymphocytes % (A) 8 %; MCH 25.3 pg (25.0-35.0); MCHC 31.3 g/dL (31.0-37.0); MCV 80.6 fL (80.0-100.0); Mean Platelet Volume 7.5; Microcytosis Slight; Monocytes # (A) 0.2 k/uL (0-1.0); Monocytes % (A) 2 %; Neutrophils # (A) 9.8 k/uL (1.3-7.7); Neutrophils % (A) 89 %; Platelet Count 276 k/uL (150-450); RBC 5.24 m/uL (3.80-5.40); RDW 18.1 % (11.5-15.5); WBC 11.1 k/uL (3.8-10.6)
[2018-06-27 04:22] LABS: D-Dimer 0.55 mg/L FEU (<0.60); INR 0.9 (<1.2); Prothrombin Time 9.5 sec (9.0-12.0)
[2018-06-27 04:58] LABS: Albumin 4.5 g/dL (3.5-5.0); Calcium 10.9 mg/dL (8.4-10.2); Total Bilirubin 1.1 mg/dL (0.2-1.3); Total Protein 7.1 g/dL (6.3-8.2)
[2018-06-27 05:04] LABS: Creatine Kinase 46 U/L (30-135); Creatine Kinase MB 0.8 ng/mL (0.0-2.4); Troponin I <0.012 ng/mL (0.000-0.034)
[2018-06-27 05:40] LABS: Partial Thromboplastin Time 20.4 sec (22.0-30.0)
[2018-06-27 06:07] LABS: Appearance,Urine Clear (Clear); Bacteria,Urine Rare /hpf; Bilirubin,Urine Negative (Negative); Blood,Urine Negative (Negative); Color,Urine Yellow; Glucose,Urine (UA) Negative (Negative); Hyaline Casts,Urine 4 /lpf (0-2); Ketones,Urine 1+ (Negative); Leukocyte Esterase,Urine Large (Negative); Mucus,Urine Occasional /hpf; Nitrite,Urine Negative (Negative); PH, Urine 6.5 (5.0-8.0); Protein,Urine 1+ (Negative); RBC,Urine 1 /hpf (0-5); Specific Gravity,Urine 1.017 (1.001-1.035); Squamous Epithelial Cell,Urine 2 /hpf (0-4); Transitional Epi Cells,Urine 1 /hpf (0-1); Urobilinogen,Urine <2.0 mg/dL (<2.0)
--- NOTE | 2018-06-27 07:07 | XR ---
EXAMINATION TYPE: XR chest 2V DATE OF EXAM: 06/27/2018 COMPARISON: 12/08/2017 HISTORY: Shortness of breath TECHNIQUE: Frontal and lateral views of the chest are obtained. FINDINGS: There is no focal air space opacity, pleural effusion, or pneumothorax seen. The cardiac silhouette size is again enlarged. The osseous structures are intact. Upper thoracic superior endpl ate compression deformities are unchanged from the prior. Minimal multilevel degenerative changes of the thoracic spine are seen. Chronic right distal clavicular deformity is seen. Old healed rib fractu re deformities are less conspicuous. IMPRESSION: Redemonstration of cardiomegaly with no acute cardiopulmonary process.
[2018-06-27] MEDS ORDERED: NALOXONE 0.4 MG/ML 1 ML VIAL IV PRN (08:38)
[2018-06-27] MEDS ORDERED: ONDANSETRON 4 MG/2 ML VIAL IVP PRN (08:38)
[2018-06-27] MEDS ORDERED: ACETAMINOPHEN TAB 325 MG TAB PO PRN (08:38)
[2018-06-27] MEDS ORDERED: ALPRAZolam 0.25 MG TAB PO PRN (08:38)
[2018-06-27] MEDS ORDERED: LEVOFLOXACIN 750 MG TAB PO SCH (09:00)
[2018-06-27] MEDS ORDERED: FAMOTIDINE 20 MG TAB PO SCH (09:00)
[2018-06-27] MEDS: HYDROcodone/APAP 5-325MG 1 EACH TAB PO PRN ×2 (09:08→13:41)
[2018-06-27 09:45] LABS: Glucose,Whole Blood 362 mg/dL (75-99)
[2018-06-27] MEDS: HEPARIN SODIUM,PORCINE 5,000 UNIT/ML 1 ML VIAL SQ SCH ×2 (10:58→21:54)
[2018-06-27] MEDS ORDERED: ALBUTEROL NEBULIZED 2.5 MG/3 ML INHALATION SCH (12:00)
[2018-06-27 12:27] LABS: Glucose,Whole Blood 507 mg/dL (75-99)
[2018-06-27 12:27] LABS: Glucose,Whole Blood 511 mg/dL (75-99)
[2018-06-27] MEDS ORDERED: KETAMINE TOPICAL PRN (13:00)
[2018-06-27] MEDS ORDERED: LIDOCAINE TOPICAL PRN (13:00)
[2018-06-27] MEDS ORDERED: CYCLOBENZAPRINE 10 MG TAB PO PRN (13:00)
[2018-06-27] MEDS ORDERED: GABAPENTIN TOPICAL PRN (13:00)
[2018-06-27] MEDS ORDERED: [UNRECOGNIZED DRUG - OTHER] TOPICAL PRN (13:00)
[2018-06-27] MEDS ORDERED: MECLIZINE 25 MG TAB PO PRN (13:00)
[2018-06-27] MEDS ORDERED: AMITRIPTYLINE TOPICAL PRN (13:00)
[2018-06-27] MEDS ORDERED: MELATONIN 5 MG TABLET PO PRN (13:00)
[2018-06-27] MEDS ORDERED: KETOPROFEN TOPICAL PRN (13:00)
[2018-06-27] MEDS: INSULIN ASPART 100 UNIT/ML 1 ML 10 ML VIAL SQ SCH ×3 (13:41→21:22)
[2018-06-27] MEDS ORDERED: HYDROCORTISONE 10 MG TAB PO SCH ×2 (13:45→21:00)
[2018-06-27] MEDS: IPRATROPIUM-ALBUTEROL 3 ML NEB INHALATION SCH ×3 (13:59→21:27)
[2018-06-27 14:55] VITALS: BMI 29.5
[2018-06-27 15:49] LABS: Anisocytosis Slight; Basophils % (A) 0 %; Eosinophils % (A) 1 %; HCT 41.5 % (34.0-46.0); HGB 12.1 gm/dL (11.4-16.0); Hypochromasia Marked; Lymphocytes # (A) 0.8 k/uL (1.0-4.8); Lymphocytes % (A) 10 %; MCH 24.4 pg (25.0-35.0); MCV 84.1 fL (80.0-100.0); Mean Platelet Volume 6.8; Monocytes # (A) 0.4 k/uL (0-1.0); Monocytes % (A) 5 %; Neutrophils # (A) 6.8 k/uL (1.3-7.7); Neutrophils % (A) 83 %; Platelet Count 272 k/uL (150-450); RBC 4.94 m/uL (3.80-5.40); RDW 18.1 % (11.5-15.5); WBC 8.1 k/uL (3.8-10.6)
[2018-06-27 16:07] LABS: Calcium 10.1 mg/dL (8.4-10.2); Potassium 4.8 mmol/L (3.5-5.1)
[2018-06-27 16:45] LABS: Glucose,Whole Blood 418 mg/dL (75-99)
[2018-06-27] MEDS ORDERED: INSULIN ASPART 100 UNIT/ML 1 ML 10 ML VIAL SQ SCH (17:30)
--- NOTE | 2018-06-27 19:26 | P.HPIM ---
History of Present Illness H&P Date: 06/27/18 Chief Complaint: Cough and shortness of breath Patient is a 67-year-old female with a known history of COPD, obstructive sleep apnea on CPAP at home, history of DVT, fibromyalgia, hypertension, osteoarthritis and history of previous admissions with COPD exacerbation and recurrent UTI came to ER with the complaints of fever, chills cough and headache. Patient was seen by Dr. Frye on last Monday and was given Medrol Dosepak and antibiotics in the form of Levaquin for bronchitis and possible pneumonia. Patient did take her medications without much improvement. Patient presented to the hospital with worsening cough and shortness of breath. Patient does have a history of atrial insufficiency and does take Cortef at home 3 times daily. Patient also has history of diabetes type 2 insulin-dependent. Chest x-ray showed redemonstration of cardiomegaly without no acute cardiopulmonary process. Review of Systems Constitutional: Subjective fever or chills . No generalized weakness or weight loss. Abdomen: Patient denied nausea vomiting and diarrhea and abdominal pain. Cardiovascular: Patient denies any chest pain or short of breath no palpitations. Respiratory: Patient does have cough with out much sputum production. Shortness of breath. Neurologic: Patient denied any numbness or tingling . Patient does have headache with cough. Musculoskeletal: Patient denies any complaints of joint swelling or deformity. Skin: Negative Psychiatric: Negative Endocrine: No heat or cold intolerance. No recent weight gain. Genitourinary: No dysuria or hematuria. 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 Past Anesthesia/Blood Transfusion Reactions: Motion Sickness Additional Past Anesthesia/Blood Transfusion Reaction / Comment(s): never recieved blood Smoking Status: Never smoker - Past Family History Father Family Medical History: Coronary Artery Disease (CAD), CVA/TIA, Diabetes Mellitus, Myocardial Infarction (MS), Pneumonia Additional Family Medical History / Comment(s): ather at the age of 78yrs from MS and pneumonia. Mother Family Medical History: Cancer Additional Family Medical History / Comment(s): Mother had uterine cancer. She is 96yrs old. Medications and Allergies Home Medications Medication Instructions Recorded Confirmed Type Aspirin 81 mg PO DAILY 12/01/14 06/26/18 History Atorvastatin Calcium [Lipitor] 20 mg PO HS 12/01/14 06/26/18 History Cholecalciferol [Vitamin D3] 3,000 unit PO DAILY@0700 12/01/14 06/26/18 History Lisinopril [Prinivil] 20 mg PO AC-BRKFST 12/01/14 06/26/18 History L.acidoph,Paracasei, B.lactis 2 cap PO BID 10/12/15 06/26/18 History [Probiotic] Ondansetron [Zofran] 4 mg PO Q6H PRN 10/12/15 06/26/18 History amLODIPine [Norvasc] 5 mg PO DAILY 11/17/15 06/26/18 History Cranberry 300mg 300 mg PO BID 07/06/17 06/26/18 History HYDROcodone/APAP 10-325MG [Deputy 1 - 2 tab PO Q4-6H PRN MDD 6 TABS 07/06/1702/04 History 10-325] Insulin Aspart [NovoLOG Flexpen] 18 units SQ AC-BRKFST 07/06/17 06/27/18 History Insulin Aspart [NovoLOG Flexpen] 18 units SQ AC-LUNCH 07/06/17 06/26/18 History Insulin Aspart [NovoLOG Flexpen] 20 unit SQ AC-SUPPER 07/06/17 06/27/18 History Liquid Health Multiple 30 ml PO DAILY 07/06/17 06/26/18 History Metoprolol Succinate (ER) [Toprol 50 mg PO HS 07/06/17 06/26/18 History XL] Meclizine [Antivert] 25 mg PO QID PRN 11/26/17 06/26/18 History Folic Acid 1 mg PO DAILY 02/26/18 06/26/18 History Magnesium Oxide 400 mg PO QAM 02/26/18 06/26/18 History Pantoprazole [Protonix] 40 mg PO BID PRN 02/26/18 06/26/18 History Thiamine [Vitamin B-1] 100 mg PO DAILY 02/26/18 06/26/18 History Vitamin B Complex Drops 1 drop PO BID 02/26/18 06/26/18 History Hydrocortisone [Cortef] 10 mg PO AC-LUNCH 05/18/18 06/26/18 History Hydrocortisone [Cortef] 15 mg PO AC-BRKFST 05/18/18 06/26/18 History Insulin Glargine,Hum.rec.anlog 36 units SQ HS@2200 05/18/18 06/27/18 History [Lantus Solostar] Amitrip2%/Lido5%/Gabapentin/Yifqvci98%/Owijtswy03% 1 applic TOPICAL BID PRN 02/0406/26/18 History Compound Cream Cyclobenzaprine [Flexeril] 10 mg PO TID PRN 06/26/18 06/26/18 History Hydrocortisone [Cortef] 5 mg PO HS 06/26/18 06/26/18 History Melatonin 5 mg PO HS PRN 06/26/18 06/26/18 History Phenylephrine HCl/Prometh HCl 5 ml PO Q6H PRN 06/26/18 06/26/18 History [Promethazine Vc Syrup] Allergies Allergy/AdvReac Type Severity Reaction Status Date / Time butorphanol tartrate Allergy BLISTERS Verified 06/26/18 21:53 [From Stadol] IN MOUTH ceftriaxone [From Rocephin] Allergy Unknown Verified 06/26/18 21:53 clarithromycin [From Biaxin] Allergy Rash/Hives Verified 06/26/18 21:53 codeine Allergy Rash/Hives Verified 06/26/18 21:53 ergotamine tartrate Allergy Unknown Verified 06/26/18 21:53 [From Cafergot] erythromycin base Allergy RASH, GI Verified 06/26/18 21:53 [From E-Mycin] SYMPTOMS ketorolac tromethamine Allergy Rash/Hives Verified 06/26/18 21:53 [From Toradol] liraglutide [From Victoza] Allergy Rash/Hives Verified 06/26/18 21:53 monosodium glutamate [MSG] Allergy Nausea & Verified 06/26/18 21:53 Vomiting morphine Allergy Rash/Hives Verified 06/26/18 21:53 nalbuphine HCl [From Nubain] Allergy Nausea & Verified 06/26/18 21:53 Vomiting Penicillins Allergy Rash/Hives Verified 06/26/18 21:53 pentazocine lactate Allergy SEVERE Verified 06/26/18 21:53 [From Talwin] BLISTERS IN MOUTH pregabalin [From Lyrica] Allergy Rash/Hives Verified 06/26/18 21:53 propoxyphene HCl Allergy Rash/Hives Verified 06/26/18 21:53 [From Darvon] Sulfa (Sulfonamide Allergy Rash/Hives Verified 06/26/18 21:53 Antibiotics) tramadol Allergy Unknown Verified 06/26/18 21:53 Physical Exam Vitals: Vital Signs Temp Pulse Resp BP Pulse Ox 06/27/18 06:00 79 18 111/72 97 06/27/18 05:00 74 20 127/74 06/26/18 23:04 77 18 119/87 98 06/26/18 23:00 125/89 06/26/18 22:00 131/87 06/26/18 21:47 142/79 06/26/18 21:41 99.3 F 77 20 142/79 93 L Intake and Output 06/26/18 06/27/18 06/27/18 22:59 06:59 14:59 Other: Weight 68.492 kg PHYSICAL EXAMINATION: Patient is lying in the bed comfortably, no acute distress, awake alert and oriented.. HEENT: Normocephalic. Neck is supple. Pupils reactive. Nostrils clear. Oral cavity is moist. Ears reveal no drainage. Neck reveals no JVD, carotid bruits, or thyromegaly. CHEST EXAMINATION: Trachea is central. Symmetrical expansion. Bibasilar decreased air entry. No wheezing. Lung hinds clear to auscultation and percussion. CARDIAC: Normal S1, S2 with no gallops. No murmurs ABDOMEN: Soft. Bowel sounds normal. No organomegaly. No abdominal bruits. Extremities: reveal no edema. No clubbing or cyanosis Neurologically awake, alert, oriented x3 with well-coordinated movements. No focal deficits noted Skin: No rash or skin lesions. Psychiatric: Coperative. Nonsuicidal. Anxious Musculoskeletal: No joint swelling or deformity. Normal range of motion. Results CBC & Chem 7: 06/27/18 15:24 06/27/18 15:24 Labs: Abnormal Lab Results - Last 24 Hours (Table) 06/26/18 06/26/18 06/26/18 Range/Units 22:35 22:35 22:35 WBC 11.1 H (3.8-10.6) k/uL RDW 18.1 H (11.5-15.5) % Neutrophils # 9.8 H (1.3-7.7) k/uL Lymphocytes # 0.9 L (1.0-4.8) k/uL APTT 20.4 L (22.0-30.0) sec Glucose 244 H (74-99) mg/dL POC Glucose (mg/dL) (75-99) mg/dL Calcium 10.9 H (8.4-10.2) mg/dL Urine Protein (Negative) Urine Ketones (Negative) Ur Leukocyte Esterase (Negative) Urine WBC (0-5) /hpf Urine WBC Clumps (None) /hpf Urine Bacteria (None) /hpf Hyaline Casts (0-2) /lpf Urine Mucus (None) /hpf 06/26/18 06/27/18 06/27/18 Range/Units 23:09 09:43 12:23 WBC (3.8-10.6) k/uL RDW (11.5-15.5) % Neutrophils # (1.3-7.7) k/uL Lymphocytes # (1.0-4.8) k/uL APTT (22.0-30.0) sec Glucose (74-99) mg/dL POC Glucose (mg/dL) 362 H 511 H (75-99) mg/dL Calcium (8.4-10.2) mg/dL Urine Protein 1+ H (Negative) Urine Ketones 1+ H (Negative) Ur Leukocyte Esterase Large H (Negative) Urine WBC 24 H (0-5) /hpf Urine WBC Clumps Rare H (None) /hpf Urine Bacteria Rare H (None) /hpf Hyaline Casts 4 H (0-2) /lpf Urine Mucus Occasional H (None) /hpf 06/27/18 Range/Units 12:25 WBC (3.8-10.6) k/uL RDW (11.5-15.5) % Neutrophils # (1.3-7.7) k/uL Lymphocytes # (1.0-4.8) k/uL APTT (22.0-30.0) sec Glucose (74-99) mg/dL POC Glucose (mg/dL) 507 H (75-99) mg/dL Calcium (8.4-10.2) mg/dL Urine Protein (Negative) Urine Ketones (Negative) Ur Leukocyte Esterase (Negative) Urine WBC (0-5) /hpf Urine WBC Clumps (None) /hpf Urine Bacteria (None) /hpf Hyaline Casts (0-2) /lpf Urine Mucus (None) /hpf Microbiology - Last 24 Hours (Table) 06/26/18 23:09 Urine Culture - Preliminary Urine,Voided Thrombosis Risk Factor Assmnt - DVT/VTE Prophylaxis DVT/VTE Prophylaxis: Pharmacologic Prophylaxis ordered - Choose All That Apply Any of the Below Risk Factors Present?: Yes Each Factor Represents 1 point: Abnormal pulmonary function (COPD), Obesity ( BMI >25) Other Risk Factors: Yes Each Risk Factor Represents 2 Points: Age 61-74 years Other congenital or acquired thrombophilia - If yes, enter type in comment: No Thrombosis Risk Factor Assessment Total Risk Factor Score: 4 Thrombosis Risk Factor Assessment Level: Moderate Risk Assessment and Plan Assessment: Acute tracheobronchitis. Unlikely pneumonia as well as chest x-ray acute urinary tract infection Hyperglycemia with uncontrolled diabetes type 2 insulin-dependent Fibromyalgia Chronic pain syndrome Chronic back pain and lumbar fusion surgery Adrinal insufficiency. Patient is on Cortef 3 times daily at home. History of DVT Hypertension Hyperlipidemia Osteoarthritis of multiple joints Obstructive sleep apnea on CPAP History of nephrolithiasis History of MRSA DVT prophylaxis with heparin subcu plan: Patient be continued on DuoNeb's and antibiotic in the form of Levaquin for tracheobronchitis. Unlikely pneumonia. Follow-up urine culture reports. Continue the pain management with [place] as per home dose. Continue the home dosing of insulin and other medications. Follow closely. Further recommendations based on the clinical course. Prognosis guarded with multiple medical problems and comorbid conditions. Time with Patient: Greater than 30
[2018-06-27] MEDS: HYDROcodone/APAP 10-325MG 1 EACH TAB PO PRN (20:21)
[2018-06-27] MEDS ORDERED: VITAMIN B COMPLEX PO SCH (21:00)
[2018-06-27] MEDS ORDERED: CRANBERRY 300 MG PO SCH (21:00)
[2018-06-27 21:21] LABS: Glucose,Whole Blood 416 mg/dL (75-99)
[2018-06-27] MEDS ORDERED: INSULIN ASPART 100 UNIT/ML 1 ML 10 ML VIAL SQ ONE (21:25)
[2018-06-27] MEDS: INSULIN DETEMIR 100 UNIT/ML 10 ML VIAL SQ SCH (21:53)
[2018-06-27] MEDS: LACTOBACILLUS ACIDOPH & BULGAR 1 EACH PACKET PO SCH (21:53)
[2018-06-27] MEDS: ATORVASTATIN 20 MG TAB PO SCH (21:53)
[2018-06-27] MEDS: METOPROLOL SUCCINATE (ER) 50 MG TAB.ER.24H PO SCH (21:54)
[2018-06-27] MEDS: HYDROCORTISONE 10 MG TAB PO SCH (21:54)
[2018-06-27] MEDS ORDERED: INSULIN DETEMIR 100 UNIT/ML 10 ML VIAL SQ SCH (22:00)
[2018-06-27] MEDS: HYDROmorphone 0.5 MG/0.5 ML SYRINGE IVP PRN (23:51)
[2018-06-28 00:01] LABS: Glucose,Whole Blood 358 mg/dL (75-99)
[2018-06-28] MEDS: IPRATROPIUM-ALBUTEROL 3 ML NEB INHALATION SCH ×6 (01:45→20:25)
[2018-06-28 02:21] LABS: Glucose,Whole Blood 298 mg/dL (75-99)
[2018-06-28] MEDS: HYDROcodone/APAP 10-325MG 1 EACH TAB PO PRN ×4 (02:44→21:09)
[2018-06-28 05:42] LABS: Hemoglobin A1C 7.6 % (4.0-6.0)
[2018-06-28] MEDS ORDERED: INSULIN ASPART 100 UNIT/ML 1 ML 10 ML VIAL SQ SCH (07:30)
[2018-06-28] MEDS ORDERED: HYDROCORTISONE 10 MG TAB PO SCH (07:30)
[2018-06-28 07:36] LABS: Glucose,Whole Blood 250 mg/dL (75-99)
[2018-06-28] MEDS: CHOLECALCIFEROL 1,000 UNIT TAB PO SCH (07:57)
[2018-06-28] MEDS: MAGNESIUM OXIDE 400 MG TAB PO SCH (07:58)
[2018-06-28] MEDS: FAMOTIDINE 20 MG TAB PO SCH (07:58)
[2018-06-28] MEDS: FOLIC ACID 1 MG TAB PO SCH (07:58)
[2018-06-28] MEDS: ASPIRIN 81 MG PO SCH (07:59)
[2018-06-28] MEDS: THIAMINE 100 MG TAB PO SCH (07:59)
[2018-06-28] MEDS: LACTOBACILLUS ACIDOPH & BULGAR 1 EACH PACKET PO SCH ×2 (08:00→21:09)
[2018-06-28] MEDS: HYDROCORTISONE 10 MG TAB PO SCH ×2 (08:02→21:16)
[2018-06-28] MEDS: HEPARIN SODIUM,PORCINE 5,000 UNIT/ML 1 ML VIAL SQ SCH ×2 (08:02→21:08)
[2018-06-28] MEDS: INSULIN ASPART 100 UNIT/ML 1 ML 10 ML VIAL SQ SCH ×7 (08:06→21:08)
[2018-06-28 08:18] LABS: Anisocytosis Slight; Basophils % (A) 0 %; Eosinophils % (A) 0 %; HCT 37.6 % (34.0-46.0); HGB 11.9 gm/dL (11.4-16.0); Hypochromasia Slight; Lymphocytes # (A) 1.3 k/uL (1.0-4.8); Lymphocytes % (A) 12 %; MCH 25.6 pg (25.0-35.0); MCHC 31.6 g/dL (31.0-37.0); MCV 81.1 fL (80.0-100.0); Mean Platelet Volume 7.5; Microcytosis Slight; Monocytes # (A) 0.6 k/uL (0-1.0); Monocytes % (A) 6 %; Neutrophils # (A) 8.6 k/uL (1.3-7.7); Neutrophils % (A) 80 %; Platelet Count 253 k/uL (150-450); RBC 4.64 m/uL (3.80-5.40); RDW 18.1 % (11.5-15.5); WBC 10.8 k/uL (3.8-10.6)
[2018-06-28 08:52] LABS: Potassium 4.1 mmol/L (3.5-5.1)
[2018-06-28 08:53] LABS: Calcium 10.4 mg/dL (8.4-10.2)
[2018-06-28] MEDS ORDERED: [UNRECOGNIZED DRUG - OTHER] PO SCH (09:00)
[2018-06-28] MEDS ORDERED: LEVOFLOXACIN 750 MG TAB PO SCH (09:00)
[2018-06-28] MEDS: HYDROmorphone 0.5 MG/0.5 ML SYRINGE IVP PRN ×4 (09:01→22:18)
[2018-06-28] MEDS: HYDROCORTISONE 20 MG TAB PO SCH (12:12)
[2018-06-28 12:19] LABS: Glucose,Whole Blood 172 mg/dL (75-99)
[2018-06-28] MEDS: methylPREDNISolone SOD SUCCI 125 MG/2 ML VIAL IV SCH ×3 (14:19→23:11)
--- NOTE | 2018-06-28 16:43 | CONS ---
CONSULTATION PULMONARY CONSULTATION: DATE OF SERVICE: June 28, 2018 This is a very pleasant 67-year-old female with a known history of COPD, sleep apnea syndrome, maintained on CPAP, DVT, fibromyalgia, hypertension, osteoarthritis, and adrenal insufficiency. The patient was recently seen by my partner, Dr. Frye on June 25, 2018. That was earlier this week. At that time, she was complaining of worsening shortness of breath, cough, chest congestion, wheezing and respiratory distress. Apparently had been going on for a week. She was feeling tired. She was feeling exhausted. She does have adrenal insufficiency. She is maintained on hydrocortisone 25 mg on a daily basis. She was an inpatient at [facility] between June 06, 2018 and June 12, 2018 for underlying urinary tract infection. Her course there was complicated by worsening renal insufficiency. She required steroids and IV antibiotics. She was eventually. recovered and was discharged home. This more recent episode is primarily lung in nature. My partner on June 25, diagnosed her with acute bronchitis and gave her Levaquin 750 mg a day for 7 days and prednisone with a full burst and taper beginning with 40 mg. Despite that, she got worse and she came into the emergency room to be evaluated on June 26. She is now feeling a bit better today after being in the hospital for about 1 day. CURRENT MEDICAL HISTORY: Includes COPD, diabetes mellitus, deep venous thrombosis, fibromyalgia, hyperlipidemia, hypertension, DJD, pneumonia, sleep apnea syndrome, maintained on CPAP. In addition, she has a history of kidney stones as well as a adrenal insufficiency as mentioned prior. SURGICAL HISTORY: Includes among other things appendectomy, back surgery, bladder surgery, breast surgery, cholecystectomy, hysterectomy and tonsillectomy. She has also had lumbar fusions, bladder suspension, and a number of the procedures as documented by the ER physician. SOCIAL HISTORY: Is negative tobacco use. FAMILY HISTORY: Positive for cardiac disease, stroke, diabetes, myocardial infarction, pneumonia. HOME MEDICATIONS: Include aspirin, Lipitor, the vitamin D3, Prinivil, probiotics, Zofran, Norvasc, cranberry tablets, [place], insulin, metoprolol, Antivert, folic acid, Mag-Ox, Protonix, vitamin B1, which is thiamin, vitamin B complex, Cortef, which is apparently 15 mg in the morning, 10 mg in the evening, insulin, Flexeril, melatonin, and Promethazine with codeine cough syrup. ALLERGIES: INCLUDE STADOL, ROCEPHIN, BIAXIN, CODEINE AND ERYTHROMYCIN, VICTOZA, MSG, MORPHINE, PENICILLIN, LYRICA, DARVON AND TRAMADOL. The rest of the history is not too remarkable. REVIEW OF SYSTEMS: CONSTITUTIONAL: Negative. NEUROLOGIC negative. HEENT negative. CARDIOVASCULAR negative. PULMONARY shortness of breath, chest tightness, wheezing, cough, chest congestion, shortness of breath. GI negative. RHEUMATOLOGIC/IMMUNOLOGIC negative. ENDOCRINOLOGIC and DERMATOLOGIC negative. PHYSICAL EXAMINATION: VITAL SIGNS: Current vital signs include a temperature 98.4, heart rate 80, respiratory rate 12, blood pressure 105/57 mean 73, room air saturation 96%, 2 L saturation 98%. Appears in no acute distress. HEENT examination is grossly unremarkable. Nasal O2 in place. NECK: Supple. Full range of motion. No adenopathy or thyromegaly. CARDIOVASCULAR EXAMINATION: Reveals regular rhythm and rate. Heart rate 80. S1, S2 normal. No murmur. LUNGS: Coarse inspiratory and expiratory rhonchi and wheezes. Breath sounds are diminished. There is prolongation on forced maneuver. Adventitious lung sounds are more prominent on forced maneuver. ABDOMEN is soft. Bowel sounds are heard. EXTREMITIES are intact. No cyanosis, clubbing, or edema. SKIN without rash. NEUROLOGIC EXAMINATION: Is brief but nonfocal. LABS: Reviewed. White count 10.8, hemoglobin 11.9, hematocrit 37.6, platelet count normal. Her sodium, potassium chloride and CO2 all normal. Anion gap normal. BUN and creatinine were 30 and 0.92. Calcium was 10.4. The rest of her comprehensive metabolic profile was normal. Her urine looks to be possibly infected. She has 1+ protein, 1+ ketones, large leukocyte esterase, 24 WBCs, rare WBC clumps and rare bacteria. X-RAY: Chest x-ray shows cardiomegaly but no acute cardiopulmonary abnormality. ASSESSMENT: 1. Acute exacerbation of chronic obstructive pulmonary disease. Likely complicated by purulent tracheobronchitis. 2. History of diabetes mellitus. 3. History of deep venous thrombosis. 4. Fibromyalgia. 5. Hyperlipidemia. 6. Hypertension. 7. Degenerative joint disease. 8. Previous episode of pneumonia. 9. Sleep apnea syndrome, maintained on CPAP. 10.Adrenal insufficiency. 11.Recent urinary tract infection with urosepsis. 12.Possible acute urinary tract infection currently. 13.Multiple other medical problems and comorbidities. PLAN: The patient's x-rays and labs are reviewed. Medications are reviewed. From the medication standpoint, she remains on Pulmicort 1 mg mixed with Perforomist twice a day. She is also on hydrocortisone at her usual doses as well as Solu-Medrol. The patient is also getting updrafts with DuoNeb q.i.d. and p.r.n. and antibiotics. Additional recommendations and suggestions are forthcoming. We will continue to follow. Prognosis is guarded. Hopefully turn around in a couple of days. Her antibiotic currently is Levaquin. We will continue to follow. Prognosis is guarded. MMODL / IJN: [id number] /
[2018-06-28 17:15] LABS: Glucose,Whole Blood 171 mg/dL (75-99)
[2018-06-28] MEDS: FORMOTEROL FUMARATE 20 MCG/2 ML NEBU INHALATION SCH (20:25)
[2018-06-28] MEDS: BUDESONIDE 1 MG/2 ML NEBU INHALATION SCH (20:25)
[2018-06-28] MEDS: INSULIN DETEMIR 100 UNIT/ML 10 ML VIAL SQ SCH (21:08)
[2018-06-28] MEDS: ATORVASTATIN 20 MG TAB PO SCH (21:09)
[2018-06-28] MEDS: METOPROLOL SUCCINATE (ER) 50 MG TAB.ER.24H PO SCH (21:09)
[2018-06-28 21:14] LABS: Glucose,Whole Blood 257 mg/dL (75-99)
[2018-06-29] MEDS: IPRATROPIUM-ALBUTEROL 3 ML NEB INHALATION SCH ×7 (00:11→23:46)
--- NOTE | 2018-06-29 00:11 | P.PN ---
Subjective Progress Note Date: 06/28/18 Principal diagnosis: Acute COPD exacerbation Tracheobronchitis Acute urinary tract infection Patient is a 67-year-old female with a known history of COPD, obstructive sleep apnea on CPAP at home, history of DVT, fibromyalgia, hypertension, osteoarthritis and history of previous admissions with COPD exacerbation and recurrent UTI came to ER with the complaints of fever, chills cough and headache. Patient was seen by Dr. Frye on last Monday and was given Medrol Dosepak and antibiotics in the form of Levaquin for bronchitis and possible pneumonia. Patient did take her medications without much improvement. Patient presented to the hospital with worsening cough and shortness of breath. Patient does have a history of atrial insufficiency and does take Cortef at home 3 times daily. Patient also has history of diabetes type 2 insulin-dependent. Chest x-ray showed redemonstration of cardiomegaly without no acute cardiopulmonary process. 06/28/2018 Patient says that she is still having cough without much sputum production. Otherwise continued on breathing treatments and IV steroids were started. Continued antibiotics in the form of Levaquin. Urine culture showed 10-49,000 normal skin ronal. Pulmonary is following. Pain is controlled with Dilaudid. Current medications reviewed. Objective - Vital Signs Vital signs: Vital Signs Temp 98.0 F 06/28/18 20:37 Pulse 76 06/28/18 20:44 Resp 16 06/28/18 20:37 BP 111/67 06/28/18 20:37 Pulse Ox 94 L 06/28/18 20:37 Intake & Output 06/28/18 06/28/18 06/29/18 06:59 18:59 06:59 Other: Voiding Method Toilet Toilet # Voids 2 3 - Exam PHYSICAL EXAMINATION: Patient is lying in the bed comfortably, no acute distress, awake alert and oriented.. HEENT: Normocephalic. Neck is supple. Pupils reactive. Nostrils clear. Oral cavity is moist. Ears reveal no drainage. Neck reveals no JVD, carotid bruits, or thyromegaly. CHEST EXAMINATION: Trachea is central. Symmetrical expansion. Right basilar diminished air entry. Prolonged expiration.. CARDIAC: Normal S1, S2 with no gallops. No murmurs ABDOMEN: Soft. Bowel sounds normal. No organomegaly. No abdominal bruits. Extremities: reveal no edema. No clubbing or cyanosis Neurologically awake, alert, oriented x3 with well-coordinated movements. No focal deficits noted Skin: No rash or skin lesions. Psychiatric: Coperative. Nonsuicidal Musculoskeletal: No joint swelling or deformity. Normal range of motion. - Labs CBC & Chem 7: 06/28/18 07:59 06/28/18 07:59 Labs: Abnormal Lab Results - Last 24 Hours (Table) 06/27/18 06/27/18 06/27/18 Range/Units 15:24 21:19 23:50 WBC (3.8-10.6) k/uL RDW (11.5-15.5) % Neutrophils # (1.3-7.7) k/uL BUN (7-17) mg/dL Glucose (74-99) mg/dL POC Glucose (mg/dL) 416 H 358 H (75-99) mg/dL Hemoglobin A1c 7.6 H (4.0-6.0) % Calcium (8.4-10.2) mg/dL 06/28/18 06/28/18 06/28/18 Range/Units 02:09 07:33 07:59 WBC 10.8 H (3.8-10.6) k/uL RDW 18.1 H (11.5-15.5) % Neutrophils # 8.6 H (1.3-7.7) k/uL BUN (7-17) mg/dL Glucose (74-99) mg/dL POC Glucose (mg/dL) 298 H 250 H (75-99) mg/dL Hemoglobin A1c (4.0-6.0) % Calcium (8.4-10.2) mg/dL 06/28/18 06/28/18 06/28/18 Range/Units 07:59 12:08 16:57 WBC (3.8-10.6) k/uL RDW (11.5-15.5) % Neutrophils # (1.3-7.7) k/uL BUN 30 H (7-17) mg/dL Glucose 245 H (74-99) mg/dL POC Glucose (mg/dL) 172 H 171 H (75-99) mg/dL Hemoglobin A1c (4.0-6.0) % Calcium 10.4 H (8.4-10.2) mg/dL Microbiology - Last 24 Hours (Table) 06/26/18 23:09 Urine Culture - Final Urine,Voided 06/26/18 22:35 Blood Culture - Preliminary Blood No Growth after 24 hours Assessment and Plan Assessment: Acute tracheobronchitis. Unlikely pneumonia as per chest x-ray Acute COPD exacerbation acute urinary tract infection. urine culture showed normal skin ronal Hyperglycemia with uncontrolled diabetes type 2 insulin-dependent Fibromyalgia Chronic pain syndrome Chronic back pain and lumbar fusion surgery Adrinal insufficiency. Patient is on Cortef 3 times daily at home. History of DVT Hypertension Hyperlipidemia Osteoarthritis of multiple joints Obstructive sleep apnea on CPAP History of nephrolithiasis History of MRSA DVT prophylaxis with heparin subcu plan: Patient be continued on DuoNeb's and antibiotic in the form of Levaquin for tracheobronchitis. Unlikely pneumonia. Continue with IV steroids. Urine culture showed normal skin ronal.. Continue the pain management with [place] as per home dose. Continue the home dosing of insulin and other medications. Follow closely. Further recommendations based on the clinical course. Prognosis guarded with multiple medical problems and comorbid conditions. Time with Patient: Greater than 30
[2018-06-29 02:29] LABS: Glucose,Whole Blood 307 mg/dL (75-99)
[2018-06-29] MEDS: HYDROmorphone 0.5 MG/0.5 ML SYRINGE IVP PRN ×5 (03:30→20:01)
[2018-06-29] MEDS: methylPREDNISolone SOD SUCCI 125 MG/2 ML VIAL IV SCH ×3 (05:15→17:18)
[2018-06-29 07:15] LABS: Glucose,Whole Blood 277 mg/dL (75-99)
[2018-06-29] MEDS: FAMOTIDINE 20 MG TAB PO SCH ×2 (07:46→21:36)
[2018-06-29] MEDS: CHOLECALCIFEROL 1,000 UNIT TAB PO SCH (07:46)
[2018-06-29] MEDS: MAGNESIUM OXIDE 400 MG TAB PO SCH (07:46)
[2018-06-29] MEDS: HYDROcodone/APAP 10-325MG 1 EACH TAB PO PRN ×3 (07:46→21:35)
[2018-06-29] MEDS: FOLIC ACID 1 MG TAB PO SCH (07:46)
[2018-06-29] MEDS: THIAMINE 100 MG TAB PO SCH (07:47)
[2018-06-29] MEDS: LACTOBACILLUS ACIDOPH & BULGAR 1 EACH PACKET PO SCH ×2 (07:47→21:36)
[2018-06-29] MEDS: HEPARIN SODIUM,PORCINE 5,000 UNIT/ML 1 ML VIAL SQ SCH ×2 (07:48→21:35)
[2018-06-29] MEDS: ASPIRIN 81 MG PO SCH (07:48)
[2018-06-29] MEDS: HYDROCORTISONE 10 MG TAB PO SCH ×2 (07:49→21:36)
[2018-06-29] MEDS: INSULIN ASPART 100 UNIT/ML 1 ML 10 ML VIAL SQ SCH ×7 (07:52→21:37)
[2018-06-29 08:36] LABS: Anisocytosis Slight; Basophils % (A) 0 %; Eosinophils # (A) 0.1 k/uL (0-0.7); Eosinophils % (A) 1 %; HCT 37.1 % (34.0-46.0); HGB 11.6 gm/dL (11.4-16.0); Hypochromasia Moderate; Lymphocytes # (A) 0.7 k/uL (1.0-4.8); Lymphocytes % (A) 7 %; MCH 25.5 pg (25.0-35.0); MCHC 31.2 g/dL (31.0-37.0); MCV 81.9 fL (80.0-100.0); Mean Platelet Volume 7.6; Microcytosis Slight; Monocytes # (A) 0.2 k/uL (0-1.0); Monocytes % (A) 2 %; Neutrophils # (A) 9.8 k/uL (1.3-7.7); Neutrophils % (A) 90 %; Platelet Count 255 k/uL (150-450); RBC 4.53 m/uL (3.80-5.40); RDW 18.2 % (11.5-15.5); WBC 10.8 k/uL (3.8-10.6)
[2018-06-29] MEDS: FORMOTEROL FUMARATE 20 MCG/2 ML NEBU INHALATION SCH ×2 (08:41→20:57)
[2018-06-29] MEDS: BUDESONIDE 1 MG/2 ML NEBU INHALATION SCH ×2 (08:41→20:57)
[2018-06-29 08:55] LABS: Anion Gap 8 mmol/L; Blood Urea Nitrogen 27 mg/dL (7-17); Calcium 10.4 mg/dL (8.4-10.2); Carbon Dioxide 26 mmol/L (22-30); Chloride 105 mmol/L (98-107); Glucose 276 mg/dL (74-99); Potassium 4.6 mmol/L (3.5-5.1); Sodium 139 mmol/L (137-145)
[2018-06-29 12:04] LABS: Glucose,Whole Blood 269 mg/dL (75-99)
[2018-06-29] MEDS: HYDROCORTISONE 20 MG TAB PO SCH (12:08)
--- NOTE | 2018-06-29 14:15 | P.PN ---
Subjective Progress Note Date: 06/29/18 Principal diagnosis: Acute exacerbation of chronic obstructive pulmonary disease with purulent tracheobronchitis This is a pleasant 67-year-old white female patient of Dr. Guardado is admitted to the hospital on 06/27/2018 for acute exacerbation of chronic obstructive pulmonary disease complicated by purulent tracheobronchitis. Patient has been complaining of shortness of breath, cough, chest congestion, wheezing going on for over a week. Patient has a past medical history of COPD, sleep apnea syndrome, on CPAP therapy, previous history of DVT, fibromyalgia, hypertension, osteoarthritis and adrenal insufficiency. Chest x-ray showed cardiomegaly but no active cardiopulmonary abnormality. She is currently on 3 L per nasal cannula with a pulse ox of 97%, she is afebrile, hemodynamically stable, on today's exam patient still has a congested cough, with some phlegm production. Lung sounds are positive for scattered rhonchi, overall she is feeling a bit better, blood and urine cultures are negative, no fever or chills. Patient is being treated with IV steroids, oral antibiotics in the form of Levaquin, nebulized bronchodilators, Pulmicort and Perforomist, and she started to improve Objective - Vital Signs Vital signs: Vital Signs Temp 97.3 F L 06/29/18 07:00 Pulse 84 06/29/18 12:57 Resp 16 06/29/18 07:40 BP 149/77 06/29/18 07:00 Pulse Ox 97 06/29/18 07:00 Intake & Output 06/28/18 06/29/18 06/29/18 18:59 06:59 18:59 Other: Voiding Method Toilet Toilet Toilet # Voids 3 2 - Exam GENERAL EXAM: Alert, pleasant, 67-year-old white female comfortable in no apparent distress. HEAD: Normocephalic/atraumatic. EYES: Normal reaction of pupils, equal size. Conjunctiva pink, sclera white. NOSE: Clear with pink turbinates. THROAT: No erythema or exudates. NECK: No masses, no JVD, no thyroid enlargement, no adenopathy. CHEST: No chest wall deformity. Symmetrical expansion. LUNGS: Equal air entry with diffuse rhonchi CVS: Regular rate and rhythm, normal S1 and S2, no gallops, no murmurs, no rubs ABDOMEN: Soft, nontender. No hepatosplenomegaly, normal bowel sounds, no guarding or rigidity. EXTREMITIES: No clubbing, no edema, no cyanosis, 2+ pulses and upper and lower extremities. MUSCULOSKELETAL: Muscle strength and tone normal. SPINE: No scoliosis or deformity SKIN: No rashes CENTRAL NERVOUS SYSTEM: Alert and oriented -3. No focal deficits, tone is normal in all 4 extremities. PSYCHIATRIC: Alert and oriented -3. Appropriate affect. Intact judgment and insight. - Labs CBC & Chem 7: 06/29/18 07:54 06/29/18 07:54 Labs: Abnormal Lab Results - Last 24 Hours (Table) 06/28/18 06/28/18 06/29/18 Range/Units 16:57 20:51 02:15 WBC (3.8-10.6) k/uL RDW (11.5-15.5) % Neutrophils # (1.3-7.7) k/uL Lymphocytes # (1.0-4.8) k/uL BUN (7-17) mg/dL Glucose (74-99) mg/dL POC Glucose (mg/dL) 171 H 257 H 307 H (75-99) mg/dL Calcium (8.4-10.2) mg/dL 06/29/18 06/29/18 06/29/18 Range/Units 07:00 07:54 07:54 WBC 10.8 H (3.8-10.6) k/uL RDW 18.2 H (11.5-15.5) % Neutrophils # 9.8 H (1.3-7.7) k/uL Lymphocytes # 0.7 L (1.0-4.8) k/uL BUN 27 H (7-17) mg/dL Glucose 276 H (74-99) mg/dL POC Glucose (mg/dL) 277 H (75-99) mg/dL Calcium 10.4 H (8.4-10.2) mg/dL 06/29/18 Range/Units 11:43 WBC (3.8-10.6) k/uL RDW (11.5-15.5) % Neutrophils # (1.3-7.7) k/uL Lymphocytes # (1.0-4.8) k/uL BUN (7-17) mg/dL Glucose (74-99) mg/dL POC Glucose (mg/dL) 269 H (75-99) mg/dL Calcium (8.4-10.2) mg/dL Microbiology - Last 24 Hours (Table) 06/26/18 22:35 Blood Culture - Preliminary Blood No Growth after 48 hours 06/26/18 23:09 Urine Culture - Final Urine,Voided Assessment and Plan Plan: Assessment: #1. Acute exacerbation of chronic obstructive pulmonary disease complicated by purulent tracheobronchitis #2. History of diabetes mellitus #3. History of DVT #4. Fibromyalgia #5. Hypertension, hyperlipidemia #6. Degenerative joint disease #7. Previous episode of pneumonia #8. Sleep apnea syndrome on CPAP therapy #9. Adrenal insufficiency #10. Recent UTI with urosepsis #11. Multiple other medical problems and comorbidities, Plan: Continue current dose of IV steroids, Pulmicort, Perforomist and nebulized bronchodilators, continue the oral antibiotics, patient still congested and bronchospastic, although states she is feeling better today. We'll continue to follow I performed a history & physical examination of the patient and discussed their management with my nurse practitioner, Quiana Chávez. I reviewed the nurse practitioner's note and agree with the documented findings and plan of care. Lung sounds are positive for diffuse rhonchi and wheezes. The findings and the impression was discussed with the patient. I attest to the documentation by the nurse practitioner. Time with Patient: Less than 30
[2018-06-29] MEDS: LEVOFLOXACIN 750 MG TAB PO SCH (17:18)
[2018-06-29 17:23] LABS: Glucose,Whole Blood 273 mg/dL (75-99)
[2018-06-29 20:27] LABS: Glucose,Whole Blood 269 mg/dL (75-99)
[2018-06-29] MEDS: METOPROLOL SUCCINATE (ER) 50 MG TAB.ER.24H PO SCH (21:35)
[2018-06-29] MEDS: INSULIN DETEMIR 100 UNIT/ML 10 ML VIAL SQ SCH (21:36)
[2018-06-29] MEDS: ATORVASTATIN 20 MG TAB PO SCH (21:36)
--- NOTE | 2018-06-29 22:10 | P.PN ---
Subjective Progress Note Date: 06/29/18 Principal diagnosis: Acute COPD exacerbation Tracheobronchitis Acute urinary tract infection Patient is a 67-year-old female with a known history of COPD, obstructive sleep apnea on CPAP at home, history of DVT, fibromyalgia, hypertension, osteoarthritis and history of previous admissions with COPD exacerbation and recurrent UTI came to ER with the complaints of fever, chills cough and headache. Patient was seen by Dr. Frye on last Monday and was given Medrol Dosepak and antibiotics in the form of Levaquin for bronchitis and possible pneumonia. Patient did take her medications without much improvement. Patient presented to the hospital with worsening cough and shortness of breath. Patient does have a history of atrial insufficiency and does take Cortef at home 3 times daily. Patient also has history of diabetes type 2 insulin-dependent. Chest x-ray showed redemonstration of cardiomegaly without no acute cardiopulmonary process. 06/28/2018 Patient says that she is still having cough without much sputum production. Otherwise continued on breathing treatments and IV steroids were started. Continued antibiotics in the form of Levaquin. Urine culture showed 10-49,000 normal skin ronal. Pulmonary is following. Pain is controlled with Dilaudid. 06/29/2018 Patient says that her breathing status is better today. Not to baseline. Continued on IV steroids. Patient treatments and antibiotics in the form of Levaquin. Cultures have been negative. Pulmonary is following. Otherwise no acute overnight issues. Current medications reviewed. Objective - Vital Signs Vital signs: Vital Signs Temp 97.9 F 06/29/18 15:00 Pulse 85 06/29/18 16:47 Resp 16 06/29/18 15:00 BP 119/62 06/29/18 15:00 Pulse Ox 99 06/29/18 16:37 Intake & Output 06/29/18 06/29/18 06/30/18 06:59 18:59 06:59 Other: Voiding Method Toilet Toilet # Voids 2 2 - Exam PHYSICAL EXAMINATION: Patient is lying in the bed comfortably, no acute distress, awake alert and oriented.. HEENT: Normocephalic. Neck is supple. Pupils reactive. Nostrils clear. Oral cavity is moist. Ears reveal no drainage. Neck reveals no JVD, carotid bruits, or thyromegaly. CHEST EXAMINATION: Trachea is central. Symmetrical expansion. Right basilar diminished air entry. Prolonged expiration.. CARDIAC: Normal S1, S2 with no gallops. No murmurs ABDOMEN: Soft. Bowel sounds normal. No organomegaly. No abdominal bruits. Extremities: reveal no edema. No clubbing or cyanosis Neurologically awake, alert, oriented x3 with well-coordinated movements. No focal deficits noted Skin: No rash or skin lesions. Psychiatric: Coperative. Nonsuicidal Musculoskeletal: No joint swelling or deformity. Normal range of motion. - Labs CBC & Chem 7: 06/29/18 07:54 06/29/18 07:54 Labs: Abnormal Lab Results - Last 24 Hours (Table) 06/28/18 06/29/18 06/29/18 Range/Units 20:51 02:15 07:00 WBC (3.8-10.6) k/uL RDW (11.5-15.5) % Neutrophils # (1.3-7.7) k/uL Lymphocytes # (1.0-4.8) k/uL BUN (7-17) mg/dL Glucose (74-99) mg/dL POC Glucose (mg/dL) 257 H 307 H 277 H (75-99) mg/dL Calcium (8.4-10.2) mg/dL 06/29/18 06/29/18 06/29/18 Range/Units 07:54 07:54 11:43 WBC 10.8 H (3.8-10.6) k/uL RDW 18.2 H (11.5-15.5) % Neutrophils # 9.8 H (1.3-7.7) k/uL Lymphocytes # 0.7 L (1.0-4.8) k/uL BUN 27 H (7-17) mg/dL Glucose 276 H (74-99) mg/dL POC Glucose (mg/dL) 269 H (75-99) mg/dL Calcium 10.4 H (8.4-10.2) mg/dL 06/29/18 Range/Units 17:04 WBC (3.8-10.6) k/uL RDW (11.5-15.5) % Neutrophils # (1.3-7.7) k/uL Lymphocytes # (1.0-4.8) k/uL BUN (7-17) mg/dL Glucose (74-99) mg/dL POC Glucose (mg/dL) 273 H (75-99) mg/dL Calcium (8.4-10.2) mg/dL Microbiology - Last 24 Hours (Table) 06/26/18 22:35 Blood Culture - Preliminary Blood No Growth after 48 hours Assessment and Plan Assessment: Acute tracheobronchitis. Unlikely pneumonia as per chest x-ray Acute COPD exacerbation acute urinary tract infection. urine culture showed normal skin ronal Hyperglycemia with uncontrolled diabetes type 2 insulin-dependent Fibromyalgia Chronic pain syndrome Chronic back pain and lumbar fusion surgery Adrinal insufficiency. Patient is on Cortef 3 times daily at home. History of DVT Hypertension Hyperlipidemia Osteoarthritis of multiple joints Obstructive sleep apnea on CPAP History of nephrolithiasis History of MRSA DVT prophylaxis with heparin subcu plan: Patient be continued on DuoNeb's and antibiotic in the form of Levaquin for tracheobronchitis. Unlikely pneumonia. Continue with IV steroids. Urine culture showed normal skin ronal.. Continue the pain management with [place] as per home dose. Continue the home dosing of insulin and other medications. Follow closely. Further recommendations based on the clinical course. Prognosis guarded with multiple medical problems and comorbid conditions.
[2018-06-30] MEDS: methylPREDNISolone SOD SUCCI 125 MG/2 ML VIAL IV SCH ×4 (00:39→17:42)
[2018-06-30] MEDS: HYDROmorphone 0.5 MG/0.5 ML SYRINGE IVP PRN ×4 (00:43→16:48)
[2018-06-30 02:11] LABS: Glucose,Whole Blood 186 mg/dL (75-99)
[2018-06-30] MEDS: HYDROcodone/APAP 10-325MG 1 EACH TAB PO PRN ×3 (03:29→15:11)
[2018-06-30] MEDS: IPRATROPIUM-ALBUTEROL 3 ML NEB INHALATION SCH ×5 (04:12→20:37)
[2018-06-30 07:06] LABS: Glucose,Whole Blood 234 mg/dL (75-99)
[2018-06-30] MEDS: BUDESONIDE 1 MG/2 ML NEBU INHALATION SCH ×2 (08:02→20:37)
[2018-06-30] MEDS: FORMOTEROL FUMARATE 20 MCG/2 ML NEBU INHALATION SCH ×2 (08:02→20:37)
[2018-06-30 08:17] LABS: Anion Gap 8 mmol/L; Anisocytosis Slight; Basophils % (A) 0 %; Blood Urea Nitrogen 30 mg/dL (7-17); Calcium 9.6 mg/dL (8.4-10.2); Carbon Dioxide 26 mmol/L (22-30); Chloride 104 mmol/L (98-107); Eosinophils % (A) 0 %; Glucose 229 mg/dL (74-99); HGB 10.5 gm/dL (11.4-16.0); Hypochromasia Moderate; Lymphocytes # (A) 0.5 k/uL (1.0-4.8); Lymphocytes % (A) 5 %; MCH 25.4 pg (25.0-35.0); MCV 82.1 fL (80.0-100.0); Mean Platelet Volume 7.5; Microcytosis Slight; Monocytes # (A) 0.3 k/uL (0-1.0); Monocytes % (A) 3 %; Neutrophils # (A) 10.2 k/uL (1.3-7.7); Neutrophils % (A) 91 %; Platelet Count 227 k/uL (150-450); Potassium 4.3 mmol/L (3.5-5.1); RBC 4.14 m/uL (3.80-5.40); RDW 18.2 % (11.5-15.5); Sodium 138 mmol/L (137-145); WBC 11.1 k/uL (3.8-10.6)
[2018-06-30] MEDS: FAMOTIDINE 20 MG TAB PO SCH ×2 (08:21→21:58)
[2018-06-30] MEDS: ASPIRIN 81 MG PO SCH (08:21)
[2018-06-30] MEDS: HEPARIN SODIUM,PORCINE 5,000 UNIT/ML 1 ML VIAL SQ SCH ×2 (08:22→21:58)
[2018-06-30] MEDS: FOLIC ACID 1 MG TAB PO SCH (08:22)
[2018-06-30] MEDS: HYDROCORTISONE 10 MG TAB PO SCH ×2 (08:22→21:58)
[2018-06-30] MEDS: LACTOBACILLUS ACIDOPH & BULGAR 1 EACH PACKET PO SCH ×2 (08:22→21:58)
[2018-06-30] MEDS: LEVOFLOXACIN 750 MG TAB PO SCH (08:23)
[2018-06-30] MEDS: CHOLECALCIFEROL 1,000 UNIT TAB PO SCH (08:23)
[2018-06-30] MEDS: THIAMINE 100 MG TAB PO SCH (08:26)
[2018-06-30] MEDS: MAGNESIUM OXIDE 400 MG TAB PO SCH (08:26)
[2018-06-30] MEDS: INSULIN ASPART 100 UNIT/ML 1 ML 10 ML VIAL SQ SCH ×7 (08:31→21:59)
--- NOTE | 2018-06-30 12:04 | P.PN ---
Subjective Progress Note Date: 06/30/18 Principal diagnosis: Acute exacerbation of chronic obstructive pulmonary disease, complicated by premature tracheobronchitis. This is a pleasant 67-year-old white female patient of Dr. Guardado is admitted to the hospital on 06/27/2018 for acute exacerbation of chronic obstructive pulmonary disease complicated by purulent tracheobronchitis. Patient has been complaining of shortness of breath, cough, chest congestion, wheezing going on for over a week. Patient has a past medical history of COPD, sleep apnea syndrome, on CPAP therapy, previous history of DVT, fibromyalgia, hypertension, osteoarthritis and adrenal insufficiency. Chest x-ray showed cardiomegaly but no active cardiopulmonary abnormality. She is currently on 3 L per nasal cannula with a pulse ox of 97%, she is afebrile, hemodynamically stable, on today's exam patient still has a congested cough, with some phlegm production. Lung sounds are positive for scattered rhonchi, overall she is feeling a bit better, blood and urine cultures are negative, no fever or chills. Patient is being treated with IV steroids, oral antibiotics in the form of Levaquin, nebulized bronchodilators, Pulmicort and Perforomist, and she started to improve. The patient is seen today 06/30/2018 in follow-up on the regular medical floor. She is awake and alert in no acute distress. She is currently resting quite comfortably in bed. She denies any worsening shortness of breath, cough or congestion. She is maintaining O2 saturations in the 90s on 3 L/m per nasal cannula. She's afebrile. Hemodynamically stable. Blood and urine culture reveals no growth. White count 11.1. Hemoglobin 10.5. Creatinine 0.62. Objective - Vital Signs Vital signs: Vital Signs Temp 97.7 F 06/30/18 07:00 Pulse 76 06/30/18 08:32 Resp 18 06/30/18 08:00 BP 136/71 06/30/18 07:00 Pulse Ox 99 06/30/18 07:00 Intake & Output 06/29/18 06/30/18 06/30/18 18:59 06:59 18:59 Intake Total 400 Balance 400 Intake: Oral 400 Other: Voiding Method Toilet Toilet Toilet # Voids 2 2 - Exam GENERAL EXAM: Alert, active, comfortable in no apparent distress. HEAD: Normocephalic. EYES: Normal reaction of pupils, equal size. NOSE: Clear with pink turbinates. THROAT: No erythema or exudates. NECK: No masses, no JVD. CHEST: No chest wall deformity. LUNGS: Equal air entry with no crackles, wheeze, rhonchi or dullness. CVS: S1 and S2 normal with no audible murmur, regular rhythm. ABDOMEN: No hepatosplenomegaly, normal bowel sounds, no guarding or rigidity. SPINE: No scoliosis or deformity SKIN: No rashes CENTRAL NERVOUS SYSTEM: No focal deficits, tone is normal in all 4 extremities. EXTREMITIES: There is no peripheral edema. No clubbing, no cyanosis. Peripheral pulses are intact. - Labs CBC & Chem 7: 06/30/18 07:32 06/30/18 07:32 Labs: Abnormal Lab Results - Last 24 Hours (Table) 06/29/18 06/29/18 06/29/18 Range/Units 11:43 17:04 20:15 WBC (3.8-10.6) k/uL Hgb (11.4-16.0) gm/dL RDW (11.5-15.5) % Neutrophils # (1.3-7.7) k/uL Lymphocytes # (1.0-4.8) k/uL BUN (7-17) mg/dL Glucose (74-99) mg/dL POC Glucose (mg/dL) 269 H 273 H 269 H (75-99) mg/dL 06/30/18 06/30/18 06/30/18 Range/Units 01:59 06:55 07:32 WBC 11.1 H (3.8-10.6) k/uL Hgb 10.5 L (11.4-16.0) gm/dL RDW 18.2 H (11.5-15.5) % Neutrophils # 10.2 H (1.3-7.7) k/uL Lymphocytes # 0.5 L (1.0-4.8) k/uL BUN (7-17) mg/dL Glucose (74-99) mg/dL POC Glucose (mg/dL) 186 H 234 H (75-99) mg/dL 06/30/18 Range/Units 07:32 WBC (3.8-10.6) k/uL Hgb (11.4-16.0) gm/dL RDW (11.5-15.5) % Neutrophils # (1.3-7.7) k/uL Lymphocytes # (1.0-4.8) k/uL BUN 30 H (7-17) mg/dL Glucose 229 H (74-99) mg/dL POC Glucose (mg/dL) (75-99) mg/dL Microbiology - Last 24 Hours (Table) 06/26/18 22:35 Blood Culture - Preliminary Blood No Growth after 72 hours Assessment and Plan Assessment: Assessment: #1. Acute exacerbation of chronic obstructive pulmonary disease complicated by purulent tracheobronchitis #2. History of diabetes mellitus #3. History of DVT #4. Fibromyalgia #5. Hypertension, hyperlipidemia #6. Degenerative joint disease #7. Previous episode of pneumonia #8. Sleep apnea syndrome on CPAP therapy #9. Adrenal insufficiency #10. Recent UTI with urosepsis #11. Multiple other medical problems and comorbidities, Plan: The patient was seen and evaluated by Dr. Mccord. She is cleared for discharge from the pulmonary standpoint. We will discontinue the IV Solu-Medrol if she goes home today and she could go on her normal Cortef dose. Complete her course of antibiotics. Follow up with Dr. Joe in our office in 1 week. She is encouraged to call sooner with any recurrence of symptoms or other questions or concerns. I, the cosigning physician, performed a history & physical examination of the patient. Lungs sounds are clear. Maintaining good O2 saturations in the 90s on 3 L/m per nasal cannula. I discussed the assessment and plan of care with my nurse practitioner, Saba Huggins. I attest to the above note as dictated by her.
[2018-06-30 12:14] LABS: Glucose,Whole Blood 214 mg/dL (75-99)
[2018-06-30] MEDS: HYDROCORTISONE 20 MG TAB PO SCH (13:34)
[2018-06-30 17:10] LABS: Glucose,Whole Blood 170 mg/dL (75-99)
[2018-06-30 20:05] LABS: Glucose,Whole Blood 286 mg/dL (75-99)
[2018-06-30] MEDS ORDERED: INSULIN ASPART 100 UNIT/ML 1 ML 10 ML VIAL SQ ONE (21:00)
--- NOTE | 2018-06-30 21:29 | P.PN ---
Subjective Progress Note Date: 06/30/18 Principal diagnosis: Acute COPD exacerbation Tracheobronchitis Acute urinary tract infection Patient is a 67-year-old female with a known history of COPD, obstructive sleep apnea on CPAP at home, history of DVT, fibromyalgia, hypertension, osteoarthritis and history of previous admissions with COPD exacerbation and recurrent UTI came to ER with the complaints of fever, chills cough and headache. Patient was seen by Dr. Frye on last Monday and was given Medrol Dosepak and antibiotics in the form of Levaquin for bronchitis and possible pneumonia. Patient did take her medications without much improvement. Patient presented to the hospital with worsening cough and shortness of breath. Patient does have a history of atrial insufficiency and does take Cortef at home 3 times daily. Patient also has history of diabetes type 2 insulin-dependent. Chest x-ray showed redemonstration of cardiomegaly without no acute cardiopulmonary process. 06/28/2018 Patient says that she is still having cough without much sputum production. Otherwise continued on breathing treatments and IV steroids were started. Continued antibiotics in the form of Levaquin. Urine culture showed 10-49,000 normal skin ronal. Pulmonary is following. Pain is controlled with Dilaudid. 06/29/2018 Patient says that her breathing status is better today. Not to baseline. Continued on IV steroids. Patient treatments and antibiotics in the form of Levaquin. Cultures have been negative. Pulmonary is following. Otherwise no acute overnight issues. 06/30/2018 Patient is lying in the bed comfortably. No fever no chills. Breathing is much easier. Otherwise patient says that she is not back to her baseline breathing status. Steroids will be changed to by mouth. No nausea vomiting or abdominal pain. Patient is complaining of cervical neck pain which is also chronic. Anticipate discharge tomorrow with more clinical improvement. Current medications reviewed. Objective - Vital Signs Vital signs: Vital Signs Temp 97.7 F 06/30/18 07:00 Pulse 76 06/30/18 12:23 Resp 18 06/30/18 08:00 BP 136/71 06/30/18 07:00 Pulse Ox 99 06/30/18 07:00 Intake & Output 06/29/18 06/30/18 06/30/18 18:59 06:59 18:59 Intake Total 400 Balance 400 Intake: Oral 400 Other: Voiding Method Toilet Toilet Toilet # Voids 2 2 - Exam PHYSICAL EXAMINATION: Patient is lying in the bed comfortably, no acute distress, awake alert and oriented.. HEENT: Normocephalic. Neck is supple. Pupils reactive. Nostrils clear. Oral cavity is moist. Ears reveal no drainage. Neck reveals no JVD, carotid bruits, or thyromegaly. CHEST EXAMINATION: Trachea is central. Symmetrical expansion. Right basilar diminished air entry. No wheezing. CARDIAC: Normal S1, S2 with no gallops. No murmurs ABDOMEN: Soft. Bowel sounds normal. No organomegaly. No abdominal bruits. Extremities: reveal no edema. No clubbing or cyanosis Neurologically awake, alert, oriented x3 with well-coordinated movements. No focal deficits noted Skin: No rash or skin lesions. Psychiatric: Coperative. Nonsuicidal Musculoskeletal: No joint swelling or deformity. Normal range of motion. - Labs CBC & Chem 7: 06/30/18 07:32 06/30/18 07:32 Labs: Abnormal Lab Results - Last 24 Hours (Table) 06/29/18 06/29/18 06/30/18 Range/Units 17:04 20:15 01:59 WBC (3.8-10.6) k/uL Hgb (11.4-16.0) gm/dL RDW (11.5-15.5) % Neutrophils # (1.3-7.7) k/uL Lymphocytes # (1.0-4.8) k/uL BUN (7-17) mg/dL Glucose (74-99) mg/dL POC Glucose (mg/dL) 273 H 269 H 186 H (75-99) mg/dL 06/30/18 06/30/18 06/30/18 Range/Units 06:55 07:32 07:32 WBC 11.1 H (3.8-10.6) k/uL Hgb 10.5 L (11.4-16.0) gm/dL RDW 18.2 H (11.5-15.5) % Neutrophils # 10.2 H (1.3-7.7) k/uL Lymphocytes # 0.5 L (1.0-4.8) k/uL BUN 30 H (7-17) mg/dL Glucose 229 H (74-99) mg/dL POC Glucose (mg/dL) 234 H (75-99) mg/dL 06/30/18 Range/Units 12:03 WBC (3.8-10.6) k/uL Hgb (11.4-16.0) gm/dL RDW (11.5-15.5) % Neutrophils # (1.3-7.7) k/uL Lymphocytes # (1.0-4.8) k/uL BUN (7-17) mg/dL Glucose (74-99) mg/dL POC Glucose (mg/dL) 214 H (75-99) mg/dL Microbiology - Last 24 Hours (Table) 06/26/18 22:35 Blood Culture - Preliminary Blood No Growth after 72 hours Assessment and Plan Assessment: Acute tracheobronchitis. Unlikely pneumonia as per chest x-ray Acute COPD exacerbation acute urinary tract infection. urine culture showed normal skin ronal Hyperglycemia with uncontrolled diabetes type 2 insulin-dependent Fibromyalgia Chronic pain syndrome Chronic back pain and lumbar fusion surgery Adrinal insufficiency. Patient is on Cortef 3 times daily at home. History of DVT Hypertension Hyperlipidemia Osteoarthritis of multiple joints Obstructive sleep apnea on CPAP History of nephrolithiasis History of MRSA DVT prophylaxis with heparin subcu plan: Patient be continued on DuoNeb's and antibiotic in the form of Levaquin for tracheobronchitis. Unlikely pneumonia. Continued with IV steroids. Changed to by mouth. Urine culture showed normal skin ronal.. Continue the pain management with [place] as per home dose. Continue the home dosing of insulin and other medications. Follow closely. Further recommendations based on the clinical course. Prognosis guarded with multiple medical problems and comorbid conditions. Time with Patient: Greater than 30
[2018-06-30] MEDS: ATORVASTATIN 20 MG TAB PO SCH (21:58)
[2018-06-30] MEDS: METOPROLOL SUCCINATE (ER) 50 MG TAB.ER.24H PO SCH (21:58)
[2018-06-30] MEDS: INSULIN DETEMIR 100 UNIT/ML 10 ML VIAL SQ SCH (21:59)
[2018-07-01] MEDS: IPRATROPIUM-ALBUTEROL 3 ML NEB INHALATION SCH ×6 (00:11→20:42)
[2018-07-01] MEDS: HYDROcodone/APAP 10-325MG 1 EACH TAB PO PRN ×4 (00:53→20:29)
[2018-07-01] MEDS: HYDROmorphone 0.5 MG/0.5 ML SYRINGE IVP PRN ×6 (02:17→21:33)
[2018-07-01 03:47] LABS: Glucose,Whole Blood 219 mg/dL (75-99)
[2018-07-01 07:14] LABS: Glucose,Whole Blood 178 mg/dL (75-99)
[2018-07-01] MEDS: INSULIN ASPART 100 UNIT/ML 1 ML 10 ML VIAL SQ SCH ×7 (08:16→20:30)
[2018-07-01] MEDS: FOLIC ACID 1 MG TAB PO SCH (08:18)
[2018-07-01] MEDS: THIAMINE 100 MG TAB PO SCH (08:18)
[2018-07-01] MEDS: FAMOTIDINE 20 MG TAB PO SCH ×2 (08:18→20:29)
[2018-07-01] MEDS: ASPIRIN 81 MG PO SCH (08:18)
[2018-07-01] MEDS: MAGNESIUM OXIDE 400 MG TAB PO SCH (08:18)
[2018-07-01] MEDS: predniSONE 50 MG TAB PO SCH (08:19)
[2018-07-01] MEDS: LACTOBACILLUS ACIDOPH & BULGAR 1 EACH PACKET PO SCH ×2 (08:19→20:29)
[2018-07-01] MEDS: HYDROCORTISONE 10 MG TAB PO SCH ×2 (08:19→20:30)
[2018-07-01] MEDS: LEVOFLOXACIN 750 MG TAB PO SCH (08:20)
[2018-07-01] MEDS: HEPARIN SODIUM,PORCINE 5,000 UNIT/ML 1 ML VIAL SQ SCH ×2 (08:23→20:29)
[2018-07-01] MEDS: CHOLECALCIFEROL 1,000 UNIT TAB PO SCH (08:23)
[2018-07-01] MEDS: FORMOTEROL FUMARATE 20 MCG/2 ML NEBU INHALATION SCH ×2 (08:52→20:42)
[2018-07-01] MEDS: BUDESONIDE 1 MG/2 ML NEBU INHALATION SCH ×2 (08:52→20:42)
--- NOTE | 2018-07-01 12:31 | PN ---
PROGRESS NOTE DATE OF SERVICE: July 01, 2018 This is a patient who was admitted with diagnosis of chronic obstructive pulmonary disease exacerbation complicated by purulent tracheobronchitis. The patient is seen again on July 01, 2018. She is awake and alert. The patient is doing relatively well, although she states she had a bad night last night. She complains of the fact that she had a coughing spell, her IV blew, and now her ears hurt. From the pulmonary standpoint, she looks very clinically stable. Her lung sounds are much improved. Her exchange is excellent. From our perspective, the patient could be discharged, but we will leave that up to the primary service. The patient denies any cough, wheezing or phlegm production. PHYSICAL EXAMINATION: Current vital signs are reviewed. Temperature is 98.5, heart rate 76, respiratory rate 16 and nonlabored, blood pressure 155/78, mean 103, room air saturation 96%. She appears in no acute distress. HEENT examination is grossly unremarkable. Mucous membranes are moist. NECK: Supple. Full range of motion. No adenopathy or thyromegaly. Neck veins are flat. Cardiovascular examination reveals regular rhythm and rate. S1, S2 normal. No S3, S4, or murmur. Heart rate about 80 beats per minute. LUNGS: Clear but somewhat diminished breath sounds. On forced maneuver, there is mild prolongation. A few scattered rhonchi noted on forced maneuver. Breath sounds are much improved. ABDOMEN: Soft. Bowel sounds are heard. Extremities are intact. No cyanosis, clubbing, or edema. Skin without rash. Neurologic examination is brief but nonfocal. Labs are reviewed. Nothing new from today. Microbiologic studies are negative. No recent chest x-ray to review. ASSESSMENT: 1. Acute exacerbation of chronic obstructive pulmonary disease, complicated by purulent tracheobronchitis. 2. History of diabetes mellitus. 3. Deep vein thrombosis. 4. Fibromyalgia. 5. Hypertension. 6. Hyperlipidemia. 7. Degenerative joint disease. 8. Previous episode of pneumonia. 9. Sleep apnea syndrome, maintained on CPAP. 10.History of adrenal insufficiency. 11.Recent urinary tract infection with urosepsis. 12.Multiple other medical problems and comorbidities. PLAN: The patient is doing reasonably well. I thought the patient could be discharged home. Will leave that up to the primary. They may be keeping her for another reason. Her pulmonary disease is stable. She should follow up with my partner post discharge. MMODL / IJN: [id number] /
[2018-07-01 13:12] LABS: Glucose,Whole Blood 137 mg/dL (75-99)
[2018-07-01] MEDS: HYDROCORTISONE 20 MG TAB PO SCH (13:12)
[2018-07-01 16:56] LABS: Glucose,Whole Blood 166 mg/dL (75-99)
[2018-07-01 20:04] LABS: Glucose,Whole Blood 242 mg/dL (75-99)
[2018-07-01] MEDS: ATORVASTATIN 20 MG TAB PO SCH (20:30)
[2018-07-01] MEDS: METOPROLOL SUCCINATE (ER) 50 MG TAB.ER.24H PO SCH (20:30)
--- NOTE | 2018-07-01 21:00 | P.PN ---
Subjective Progress Note Date: 07/01/18 Principal diagnosis: Acute COPD exacerbation Tracheobronchitis Acute urinary tract infection Patient is a 67-year-old female with a known history of COPD, obstructive sleep apnea on CPAP at home, history of DVT, fibromyalgia, hypertension, osteoarthritis and history of previous admissions with COPD exacerbation and recurrent UTI came to ER with the complaints of fever, chills cough and headache. Patient was seen by Dr. Frye on last Monday and was given Medrol Dosepak and antibiotics in the form of Levaquin for bronchitis and possible pneumonia. Patient did take her medications without much improvement. Patient presented to the hospital with worsening cough and shortness of breath. Patient does have a history of atrial insufficiency and does take Cortef at home 3 times daily. Patient also has history of diabetes type 2 insulin-dependent. Chest x-ray showed redemonstration of cardiomegaly without no acute cardiopulmonary process. 06/28/2018 Patient says that she is still having cough without much sputum production. Otherwise continued on breathing treatments and IV steroids were started. Continued antibiotics in the form of Levaquin. Urine culture showed 10-49,000 normal skin ronal. Pulmonary is following. Pain is controlled with Dilaudid. 06/29/2018 Patient says that her breathing status is better today. Not to baseline. Continued on IV steroids. Patient treatments and antibiotics in the form of Levaquin. Cultures have been negative. Pulmonary is following. Otherwise no acute overnight issues. 06/30/2018 Patient is lying in the bed comfortably. No fever no chills. Breathing is much easier. Otherwise patient says that she is not back to her baseline breathing status. Steroids will be changed to by mouth. No nausea vomiting or abdominal pain. Patient is complaining of cervical neck pain which is also chronic. Anticipate discharge tomorrow with more clinical improvement. 07/01/2018 Patient is currently lying in the bed comfortably. Patient says that she could not sleep last night and her IV line blew out and had to place around 3 AM. Patient is also complaining of left ear pain and neck pain as well. Otoscopic evaluation showed no evidence of fluid, redness or bulging of the tympanic membrane. Otherwise patient is being continued on antibiotics and oral steroids. Patient is cleared for discharge from pulmonary standpoint. Patient will be discharged tomorrow. Current medications reviewed. Objective - Vital Signs Vital signs: Vital Signs Temp 98.3 F 07/01/18 14:00 Pulse 84 07/01/18 20:51 Resp 16 07/01/18 15:28 BP 154/81 07/01/18 14:00 Pulse Ox 93 L 07/01/18 14:00 Intake & Output 07/01/18 07/01/18 07/02/18 06:59 18:59 06:59 Intake Total 200 Balance 200 Intake: Oral 200 Other: Voiding Method Toilet # Voids 2 2 # Bowel Movements 1 - Exam PHYSICAL EXAMINATION: Patient is lying in the bed comfortably, no acute distress, awake alert and oriented.. HEENT: Normocephalic. Neck is supple. Pupils reactive. Nostrils clear. Oral cavity is moist. Ears reveal no drainage. Neck reveals no JVD, carotid bruits, or thyromegaly. CHEST EXAMINATION: Trachea is central. Symmetrical expansion. Lungs clear to auscultation. Nonlabored breathing. No wheezing. CARDIAC: Normal S1, S2 with no gallops. No murmurs ABDOMEN: Soft. Bowel sounds normal. No organomegaly. No abdominal bruits. Extremities: reveal no edema. No clubbing or cyanosis Neurologically awake, alert, oriented x3 with well-coordinated movements. No focal deficits noted Skin: No rash or skin lesions. Psychiatric: Coperative. Nonsuicidal Musculoskeletal: No joint swelling or deformity. Normal range of motion. - Labs CBC & Chem 7: 06/30/18 07:32 06/30/18 07:32 Labs: Abnormal Lab Results - Last 24 Hours (Table) 07/01/18 07/01/18 07/01/18 Range/Units 03:36 07:02 13:00 POC Glucose (mg/dL) 219 H 178 H 137 H (75-99) mg/dL 07/01/18 07/01/18 Range/Units 16:45 19:52 POC Glucose (mg/dL) 166 H 242 H (75-99) mg/dL Microbiology - Last 24 Hours (Table) 06/26/18 22:35 Blood Culture - Preliminary Blood No Growth after 96 hours Assessment and Plan Assessment: Acute tracheobronchitis. Unlikely pneumonia as per chest x-ray Acute COPD exacerbation acute urinary tract infection. urine culture showed normal skin ronal Hyperglycemia with uncontrolled diabetes type 2 insulin-dependent Fibromyalgia Chronic pain syndrome Chronic back pain and lumbar fusion surgery Adrinal insufficiency. Patient is on Cortef 3 times daily at home. History of DVT Hypertension Hyperlipidemia Osteoarthritis of multiple joints Obstructive sleep apnea on CPAP History of nephrolithiasis History of MRSA DVT prophylaxis with heparin subcu plan: Patient be continued on DuoNeb's and antibiotic in the form of Levaquin for tracheobronchitis. Unlikely pneumonia. Continued with IV steroids. Changed to by mouth. Urine culture showed normal skin ronal.. Continue the pain management with [place] as per home dose. Continue the home dosing of insulin and other medications. Follow closely. Further recommendations based on the clinical course. Prognosis guarded with multiple medical problems and comorbid conditions. Time with Patient: Greater than 30
[2018-07-01] MEDS: INSULIN DETEMIR 100 UNIT/ML 10 ML VIAL SQ SCH (21:33)
[2018-07-02] MEDS: IPRATROPIUM-ALBUTEROL 3 ML NEB INHALATION SCH ×5 (00:33→15:41)
[2018-07-02] MEDS: HYDROmorphone 0.5 MG/0.5 ML SYRINGE IVP PRN ×2 (01:44→06:10)
[2018-07-02] MEDS: HYDROcodone/APAP 10-325MG 1 EACH TAB PO PRN ×2 (05:30→10:26)
[2018-07-02 07:21] LABS: Glucose,Whole Blood 76 mg/dL (75-99)
[2018-07-02] MEDS: INSULIN ASPART 100 UNIT/ML 1 ML 10 ML VIAL SQ SCH ×6 (07:24→17:01)
[2018-07-02] MEDS: FORMOTEROL FUMARATE 20 MCG/2 ML NEBU INHALATION SCH (07:56)
[2018-07-02] MEDS: BUDESONIDE 1 MG/2 ML NEBU INHALATION SCH (07:57)
[2018-07-02] MEDS: CHOLECALCIFEROL 1,000 UNIT TAB PO SCH (07:58)
[2018-07-02] MEDS: FOLIC ACID 1 MG TAB PO SCH (07:59)
[2018-07-02] MEDS: THIAMINE 100 MG TAB PO SCH (07:59)
[2018-07-02] MEDS: FAMOTIDINE 20 MG TAB PO SCH (07:59)
[2018-07-02] MEDS: MAGNESIUM OXIDE 400 MG TAB PO SCH (07:59)
[2018-07-02] MEDS: ASPIRIN 81 MG PO SCH (07:59)
[2018-07-02] MEDS: HYDROCORTISONE 10 MG TAB PO SCH (08:00)
[2018-07-02] MEDS: LACTOBACILLUS ACIDOPH & BULGAR 1 EACH PACKET PO SCH (08:01)
[2018-07-02] MEDS: HEPARIN SODIUM,PORCINE 5,000 UNIT/ML 1 ML VIAL SQ SCH (08:01)
[2018-07-02] MEDS: LEVOFLOXACIN 750 MG TAB PO SCH (08:01)
[2018-07-02] MEDS: predniSONE 50 MG TAB PO SCH (08:01)
[2018-07-02 11:11] LABS: Glucose,Whole Blood 73 mg/dL (75-99)
[2018-07-02] MEDS: HYDROCORTISONE 20 MG TAB PO SCH (11:22)
[2018-07-02] MEDS ORDERED: HYDROcodone/APAP 10-325MG 1 EACH TAB PO PRN (11:34)
--- NOTE | 2018-07-02 12:59 | P.PAINCN ---
History of Present Illness - Reason for Consult Consult date: 07/02/18 - History of Present Illness This is 67 years old female with known history of COPD and obstructive sleep apnea and she is on CPAP, patient was admitted to [facility] because of acute exacerbation of COPD, patient was complaining of severe headache and she known to have a history of occipital neuralgia, and she had occipital nerve block done in the past with good pain relief, currently she is complaining of severe neck pain and headache radiated to the top of the head, the headache interfering with her quality of life, she denies any motor or sensory deficit, the current pain medication is not helping to control her headache she is currently on Flexeril 10 mg 3 times a day and Pierpont 10/325 every 4 hours ,and she continued to have severe headache , Past Medical History Past Medical History: COPD, Diabetes Mellitus, Deep Vein Thrombosis (DVT), Fibromyalgia, Hyperlipidemia, Hypertension, Osteoarthritis (OA), Pneumonia, Renal Disease, Sleep Apnea/CPAP/BIPAP Additional Past Medical History / Comment(s): Currently treated for URI per pt, bronchitis, ELIZABET with Cpap, UTIs, UTI with sepsis, nephrolithiasis and has ahd renal failure d/t blockages, adrenal insufficiency, arthritis in multiple joints , DJD, past bilateral pelvic fractures, 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 Past Anesthesia/Blood Transfusion Reactions: Motion Sickness Additional Past Anesthesia/Blood Transfusion Reaction / Comm: never recieved blood Smoking Status: Never smoker - Past Family History Father Family Medical History: Coronary Artery Disease (CAD), CVA/TIA, Diabetes Mellitus, Myocardial Infarction (MT), Pneumonia Additional Family Medical History / Comment(s): ather at the age of 78yrs from MT and pneumonia. Mother Family Medical History: Cancer Additional Family Medical History / Comment(s): Mother had uterine cancer. She is 96yrs old. Medications and Allergies Home Medications Medication Instructions Recorded Confirmed Type Aspirin 81 mg PO DAILY 12/01/14 06/26/18 History Atorvastatin Calcium [Lipitor] 20 mg PO HS 12/01/14 06/26/18 History Cholecalciferol [Vitamin D3] 3,000 unit PO DAILY@0700 12/01/14 06/26/18 History Lisinopril [Prinivil] 20 mg PO AC-BRKFST 12/01/14 06/26/18 History L.acidoph,Paracasei, B.lactis 2 cap PO BID 10/12/15 06/26/18 History [Probiotic] Ondansetron [Zofran] 4 mg PO Q6H PRN 10/12/15 06/26/18 History amLODIPine [Norvasc] 5 mg PO DAILY 11/17/15 06/26/18 History Cranberry 300mg 300 mg PO BID 07/06/17 06/26/18 History HYDROcodone/APAP 10-325MG [[place] 1 - 2 tab PO Q4-6H PRN MDD 6 TABS 07/06/1702/04 History 10-325] Insulin Aspart [NovoLOG Flexpen] 18 units SQ AC-BRKFST 07/06/17 06/27/18 History Insulin Aspart [NovoLOG Flexpen] 18 units SQ AC-LUNCH 07/06/17 06/26/18 History Insulin Aspart [NovoLOG Flexpen] 20 unit SQ AC-SUPPER 07/06/17 06/27/18 History Liquid Health Multiple 30 ml PO DAILY 07/06/17 06/26/18 History Metoprolol Succinate (ER) [Toprol 50 mg PO HS 07/06/17 06/26/18 History XL] Meclizine [Antivert] 25 mg PO QID PRN 11/26/17 06/26/18 History Folic Acid 1 mg PO DAILY 02/26/18 06/26/18 History Magnesium Oxide 400 mg PO QAM 02/26/18 06/26/18 History Pantoprazole [Protonix] 40 mg PO BID PRN 02/26/18 06/26/18 History Thiamine [Vitamin B-1] 100 mg PO DAILY 02/26/18 06/26/18 History Vitamin B Complex Drops 1 drop PO BID 02/26/18 06/26/18 History Hydrocortisone [Cortef] 10 mg PO AC-LUNCH 05/18/18 06/26/18 History Hydrocortisone [Cortef] 15 mg PO AC-BRKFST 05/18/18 06/26/18 History Insulin Glargine,Hum.rec.anlog 36 units SQ HS@2200 05/18/18 06/27/18 History [Lantus Solostar] Amitrip2%/Lido5%/Gabapentin/Rlvxror55%/Cxbyqlma58% 1 applic TOPICAL BID PRN 02/0406/26/18 History Compound Cream Cyclobenzaprine [Flexeril] 10 mg PO TID PRN 06/26/18 06/26/18 History Hydrocortisone [Cortef] 5 mg PO HS 06/26/18 06/26/18 History Melatonin 5 mg PO HS PRN 06/26/18 06/26/18 History Phenylephrine HCl/Prometh HCl 5 ml PO Q6H PRN 06/26/18 06/26/18 History [Promethazine Vc Syrup] Allergies Allergy/AdvReac Type Severity Reaction Status Date / Time butorphanol tartrate Allergy BLISTERS Verified 06/26/18 21:53 [From Stadol] IN MOUTH ceftriaxone [From Rocephin] Allergy Unknown Verified 06/26/18 21:53 clarithromycin [From Biaxin] Allergy Rash/Hives Verified 06/26/18 21:53 codeine Allergy Rash/Hives Verified 06/26/18 21:53 ergotamine tartrate Allergy Unknown Verified 06/26/18 21:53 [From Cafergot] erythromycin base Allergy RASH, GI Verified 06/26/18 21:53 [From E-Mycin] SYMPTOMS ketorolac tromethamine Allergy Rash/Hives Verified 06/26/18 21:53 [From Toradol] liraglutide [From Victoza] Allergy Rash/Hives Verified 06/26/18 21:53 monosodium glutamate [MSG] Allergy Nausea & Verified 06/26/18 21:53 Vomiting morphine Allergy Rash/Hives Verified 06/26/18 21:53 nalbuphine HCl [From Nubain] Allergy Nausea & Verified 06/26/18 21:53 Vomiting Penicillins Allergy Rash/Hives Verified 06/26/18 21:53 pentazocine lactate Allergy SEVERE Verified 06/26/18 21:53 [From Talwin] BLISTERS IN MOUTH pregabalin [From Lyrica] Allergy Rash/Hives Verified 06/26/18 21:53 propoxyphene HCl Allergy Rash/Hives Verified 06/26/18 21:53 [From Darvon] Sulfa (Sulfonamide Allergy Rash/Hives Verified 06/26/18 21:53 Antibiotics) tramadol Allergy Unknown Verified 06/26/18 21:53 Physical Exam Vitals: Vital Signs Temp Pulse Pulse Resp BP BP Pulse Ox 07/02/18 11:29 80 07/02/18 11:19 76 07/02/18 08:10 72 07/02/18 08:05 76 07/02/18 08:00 17 07/02/18 07:59 68 07/02/18 07:00 98.0 F 75 17 139/68 96 07/02/18 01:04 98.5 F 68 16 155/75 93 L 07/02/18 00:45 16 07/01/18 21:01 88 07/01/18 20:51 84 07/01/18 20:50 80 16 07/01/18 20:48 84 07/01/18 20:44 80 07/01/18 20:00 98.0 F 80 16 144/70 94 L 07/01/18 16:47 80 07/01/18 15:28 16 07/01/18 14:00 98.3 F 86 16 154/81 93 L 07/01/18 13:28 84 07/01/18 13:16 80 Intake and Output 07/01/18 07/02/18 07/02/18 22:59 06:59 14:59 Other: Voiding Method Toilet Toilet # Voids 2 # Bowel Movements 1 Physical Examinations : 1-Constitutiona : Cooperative , not in acute distress . 2-HEENT : nech ; supple , no Lymphadenopathy , normal thyroid size . eyes : no ptosis , no icterus, no photophobia . ENT : normal of hearing , normal oropharynx , no Thrush . 3- Respiratory : Coarse inspiratory and expiratory rhonchi , decreased breath sounds bilaterally . 4- Cardiovascular : regular rate and rhythem , S1 , S2 , no S3 , no S4. 5- Gastrointestinal : abdomen soft no tenderness , bowel sounds , no organomegally . 6- Genitourinary : Defferred . 7- neurologic : Cranial nerve II to XII intact , no focal neurological deffecit . 8-psychatric : alert , oriented X 3 , appropriate affect , intact judgment and insight . 9-Lymphatic : no Lymphadenopathy . 10- musculoskeltal : Cervical Spine motor stregnth in the deltoid and biceps, normal right side , normal Left side motor stregnth biceps and the wrist extensors normal right side ,normal left side . motor stregnth in the triceps muscle . normal Right side , normal Left side deep tendon reflexes normal at the biceps , normal at Brachioradialis , normal at triceps. positive cervical facet loading test . Severe tenderness over the occipital nerve bilaterally Lumber spine moter stegnth lower extremities , thigh and legs 5/5 Right side , 5/5 Left side Results CBC & Chem 7: 06/30/18 07:32 06/30/18 07:32 Labs: Abnormal Lab Results - Last 24 Hours (Table) 07/01/18 07/01/18 07/01/18 Range/Units 13:00 16:45 19:52 POC Glucose (mg/dL) 137 H 166 H 242 H (75-99) mg/dL 07/02/18 Range/Units 11:08 POC Glucose (mg/dL) 73 L (75-99) mg/dL Microbiology - Last 24 Hours (Table) 06/26/18 22:35 Blood Culture - Preliminary Blood No Growth after 120 hours Assessment and Plan Plan: Assessment and plan= occipital neuralgia bilaterally , chronic pain syndrome Current conservative treatment failed to control her neck pain and headache, patient had excellent pain relief after occipital nerve block done in the past, and she will be good candidate to have bilateral occipital nerve block, procedure risk and benefits discussed with the patient and she agreed to the procedure, and the procedure will be done today Time with Patient: Greater than 30 PQRS Measure Charge Sheet PQRS Narrative: Smoking Status Never smoker Do You Want the Pneumonia Vaccine Up to Date Vaccine AT THIS TIME? Blood Pressure [Left Arm 155/75 Supine] Blood Pressure [Left Arm Prone 139/68 ] Blood Pressure 111/72 Pain Intensity [Neck] 8 Pain Intensity [Head] 8 Pain Intensity [Bilateral 8 Chest] Pain Intensity 8 Pain Scale Used Numeric (1 - 10) Scale Used Numeric (1 - 10) Home Medications: Ambulatory Orders Aspirin 81 mg PO DAILY 12/01/14 Atorvastatin Calcium [Lipitor] 20 mg PO HS 12/01/14 Cholecalciferol [Vitamin D3] 3,000 unit PO DAILY@0700 12/01/14 Lisinopril [Prinivil] 20 mg PO AC-BRKFST 12/01/14 L.acidoph,Paracasei, B.lactis [Probiotic] 2 cap PO BID 10/12/15 Ondansetron [Zofran] 4 mg PO Q6H PRN 10/12/15 amLODIPine [Norvasc] 5 mg PO DAILY 11/17/15 Cranberry 300mg 300 mg PO BID 07/06/17 HYDROcodone/APAP 10-325MG [[place] 10-325] 1 - 2 tab PO Q4-6H PRN MDD 6 TABS 07/06 Insulin Aspart [NovoLOG Flexpen] 18 units SQ AC-KFST 07/06/17 Insulin Aspart [NovoLOG Flexpen] 18 units SQ AC-LUNCH 07/06/17 Insulin Aspart [NovoLOG Flexpen] 20 unit SQ AC-SUPPER 07/06/17 Liquid Health Multiple 30 ml PO DAILY 07/06/17 Metoprolol Succinate (ER) [Toprol XL] 50 mg PO HS 07/06/17 Meclizine [Antivert] 25 mg PO QID PRN 11/26/17 Folic Acid 1 mg PO DAILY 02/26/18 Magnesium Oxide 400 mg PO QAM 02/26/18 Pantoprazole [Protonix] 40 mg PO BID PRN 02/26/18 Thiamine [Vitamin B-1] 100 mg PO DAILY 02/26/18 Vitamin B Complex Drops 1 drop PO BID 02/26/18 Hydrocortisone [Cortef] 10 mg PO AC-LUNCH 05/18/18 Hydrocortisone [Cortef] 15 mg PO AC-BRKFST 05/18/18 Insulin Glargine,Hum.rec.anlog [Lantus Solostar] 36 units SQ HS@2200 05/18/18 Amitrip2%/Lido5%/Gabapentin/Txffjml95%/Zbhjmuae37% Compound Cream 1 applic TOPICAL BID PRN 06/26/18 Cyclobenzaprine [Flexeril] 10 mg PO TID PRN 06/26/18 Hydrocortisone [Cortef] 5 mg PO HS 06/26/18 Melatonin 5 mg PO HS PRN 06/26/18 Phenylephrine HCl/Prometh HCl [Promethazine Vc Syrup] 5 ml PO Q6H PRN 06/26/18
[2018-07-02 14:49] VITALS: BP 145/69; PULSE 78; RESP 16; TEMP 98.2
--- NOTE | 2018-07-02 14:57 | P.PN ---
Subjective Progress Note Date: 07/02/18 Principal diagnosis: Acute exacerbation of chronic obstructive pulmonary disease with purulent tracheobronchitis This is a pleasant 67-year-old white female patient of Dr. Guardado is admitted to the hospital on 06/27/2018 for acute exacerbation of chronic obstructive pulmonary disease complicated by purulent tracheobronchitis. Patient has been complaining of shortness of breath, cough, chest congestion, wheezing going on for over a week. Patient has a past medical history of COPD, sleep apnea syndrome, on CPAP therapy, previous history of DVT, fibromyalgia, hypertension, osteoarthritis and adrenal insufficiency. Chest x-ray showed cardiomegaly but no active cardiopulmonary abnormality. She is currently on 3 L per nasal cannula with a pulse ox of 97%, she is afebrile, hemodynamically stable, on today's exam patient still has a congested cough, with some phlegm production. Lung sounds are positive for scattered rhonchi, overall she is feeling a bit better, blood and urine cultures are negative, no fever or chills. Patient is being treated with IV steroids, oral antibiotics in the form of Levaquin, nebulized bronchodilators, Pulmicort and Perforomist, and she started to improve On 9 07/02/2018 patient seen in follow-up on medical surgical floor. Denies any worsening shortness of breath, IV steroids have been transitioned to oral prednisone, still has occasional congested nonproductive cough, overall her breathing is improving, room air pulse ox is 94%, afebrile, hemodynamically stable, urine and blood cultures have been negative, patient was not able to produce a sputum culture. Lung sounds are diminished. Patient has been evaluated by his pain services, and she is supposed to get a nerve block today for her neck pain. No new chest x-rays or lab work today. Vital signs stable, patient is on nebulized bronchodilators, Pulmicort, Perforomist, oral antibiotics. Objective - Vital Signs Vital signs: Vital Signs Temp 98.2 F 07/02/18 14:48 Pulse 78 07/02/18 14:48 Resp 16 07/02/18 14:48 BP 145/69 07/02/18 14:48 Pulse Ox 94 L 07/02/18 14:48 Intake & Output 07/01/18 07/02/18 07/02/18 18:59 06:59 18:59 Other: Voiding Method Toilet Toilet # Voids 2 # Bowel Movements 1 - Exam GENERAL EXAM: Alert, pleasant, 67-year-old white female comfortable in no apparent distress. HEAD: Normocephalic/atraumatic. EYES: Normal reaction of pupils, equal size. Conjunctiva pink, sclera white. NOSE: Clear with pink turbinates. THROAT: No erythema or exudates. NECK: No masses, no JVD, no thyroid enlargement, no adenopathy. CHEST: No chest wall deformity. Symmetrical expansion. LUNGS: Equal air entry with diminished breath sounds, patient has occasional congested nonproductive cough CVS: Regular rate and rhythm, normal S1 and S2, no gallops, no murmurs, no rubs ABDOMEN: Soft, nontender. No hepatosplenomegaly, normal bowel sounds, no guarding or rigidity. EXTREMITIES: No clubbing, no edema, no cyanosis, 2+ pulses and upper and lower extremities. MUSCULOSKELETAL: Muscle strength and tone normal. SPINE: No scoliosis or deformity SKIN: No rashes CENTRAL NERVOUS SYSTEM: Alert and oriented -3. No focal deficits, tone is normal in all 4 extremities. PSYCHIATRIC: Alert and oriented -3. Appropriate affect. Intact judgment and insight. - Labs CBC & Chem 7: 06/30/18 07:32 06/30/18 07:32 Labs: Abnormal Lab Results - Last 24 Hours (Table) 07/01/18 07/01/18 07/02/18 Range/Units 16:45 19:52 11:08 POC Glucose (mg/dL) 166 H 242 H 73 L (75-99) mg/dL Microbiology - Last 24 Hours (Table) 06/26/18 22:35 Blood Culture - Preliminary Blood No Growth after 120 hours Assessment and Plan Plan: Assessment: #1. Acute exacerbation of chronic obstructive pulmonary disease complicated by purulent tracheobronchitis #2. History of diabetes mellitus #3. History of DVT #4. Fibromyalgia #5. Hypertension, hyperlipidemia #6. Degenerative joint disease #7. Previous episode of pneumonia #8. Sleep apnea syndrome on CPAP therapy #9. Adrenal insufficiency #10. Recent UTI with urosepsis #11. Multiple other medical problems and comorbidities, #12. Plan: Patient is improving, although still has some congestion, occasional cough, no fever or chills, will continue with current medical treatment, oral prednisone, nebulized bronchodilators, and Levaquin. Pulmonary perspective patient is doing better, continue with oral prednisone, she is breathing easier, could be considered for discharge home once cleared by attending physician I performed a history & physical examination of the patient and discussed their management with my nurse practitioner, Quiana Chávez. I reviewed the nurse practitioner's note and agree with the documented findings and plan of care. Lung sounds are positive for diminished breath sounds. The findings and the impression was discussed with the patient. I attest to the documentation by the nurse practitioner. Time with Patient: Less than 30
[2018-07-02] MEDS ORDERED: SODIUM CHLORIDE 0.9% 1,000 ML IV ONE (15:45)
[2018-07-02] MEDS ORDERED: fentaNYL (PF) 50 MCG/ML 2 ML AMP IVP ONE (15:49)
[2018-07-02] MEDS ORDERED: BUPIVACAINE (PF) 0.25% 30 ML VIAL SQ ONE (15:50)
[2018-07-02] MEDS ORDERED: TRIAMCINOLONE ACETONIDE 40 MG/ML 1 ML VIAL INTRADERMA ONE (15:50)
--- NOTE | 2018-07-02 15:59 | P.PCN ---
Date of Procedure: 07/02/18 Procedure(s) Performed: Preoperative diagnoses= 1- Greater occipital neuralgia Postoperative diagnoses= same as preoperative diagnosis. Procedure= Bilateral Greater occipital nerve block Anesthesia= moderate sedation with fentanyl 50 micrograms . Estimated blood loss=minimal. Procedure indication= the patient had a history of severe chronic neck pain , and headache, diagnosed with occipital neuralgia exam was positive for severe tenderness over the occipital nerve bilaterally, she will be a good candidate occipital nerve block, patient failed conservative management Procedure description= the patient was seen and identified in the preoperative holding area, risks and benefits and alternative of the procedure and possible complications discussed with the patient, and he agreed with the preceding, patient signed the consent, an IV was started, and vital signs were monitored and were stable throughout the procedure, patient was placed in the sitting position or table and the neck area was prepped and draped with a sterile fashion, vital signs were closely monitored during the procedure, 25-gauge needle advanced 1 inch lateral to the occipital protuberance on the right side , at the location of the right occipital nerve , then after negative aspiration for heme and CSF and there was no paresthesia during the injection, 5 ml of bupivacaine 0.5% and 20 mg of Kenalog injected after negative aspiration, the needle removed, and the entire same procedure was repeated for the left Greater occipital nerve. Patient tolerated the procedure well without any complication, The patient returned to supine position after the back was cleaned and a Band- Aid applied, the patient transported to recovery room in stable condition and he was monitored for 30 minutes before he was discharged home and then patient was reexamined before going home and patient was discharged in stable condition and patient will follow up with the pain clinic in a few weeks.
[2018-07-02 16:21] LABS: Glucose,Whole Blood 318 mg/dL (75-99)
--- NOTE | 2018-07-02 19:43 | P.DS ---
Providers Date of admission: 06/28/18 15:51 Expected date of discharge: 07/02/18 Attending physician: Sonia Ashraf Consults: 06/27/18 08:43 Consult Physician Routine Consulting Provider: Alton Frye Consult Reason/Comments: copd exacerbation Do you want consulting provider notified?: Yes 07/02/18 11:27 Consult Physician Stat Consulting Provider: Pablo Silva Consult Reason/Comments: Occipital nerve block Do you want consulting provider notified?: Yes Primary care physician: Allyson Guardado MD Hospital Course: Final Diagnoses: Acute tracheobronchitis. Unlikely pneumonia as per chest x-ray Acute COPD exacerbation acute urinary tract infection. urine culture showed normal skin ronal Hyperglycemia with uncontrolled diabetes type 2 insulin-dependent Occipital neuralgia, S/P occipital nerve block Fibromyalgia Chronic pain syndrome Chronic back pain and lumbar fusion surgery Adrinal insufficiency. Patient is on Cortef 3 times daily at home. History of DVT Hypertension Hyperlipidemia Osteoarthritis of multiple joints Obstructive sleep apnea on CPAP History of nephrolithiasis History of MRSA Hospital course: Patient is a 67-year-old female with a known history of COPD, obstructive sleep apnea on CPAP at home, history of DVT, fibromyalgia, hypertension, osteoarthritis and history of previous admissions with COPD exacerbation and recurrent UTI came to ER with the complaints of fever, chills cough and headache. Patient was seen by Dr. Frye on last Monday and was given Medrol Dosepak and antibiotics in the form of Levaquin for bronchitis and possible pneumonia. Patient did take her medications without much improvement. Patient presented to the hospital with worsening cough and shortness of breath. Patient does have a history of atrial insufficiency and does take Cortef at home 3 times daily. Patient also has history of diabetes type 2 insulin-dependent. Chest x-ray showed redemonstration of cardiomegaly without no acute cardiopulmonary process. 06/28/2018 Patient says that she is still having cough without much sputum production. Otherwise continued on breathing treatments and IV steroids were started. Continued antibiotics in the form of Levaquin. Urine culture showed 10-49,000 normal skin ronal. Pulmonary is following. Pain is controlled with Dilaudid. 06/29/2018 Patient says that her breathing status is better today. Not to baseline. Continued on IV steroids. Patient treatments and antibiotics in the form of Levaquin. Cultures have been negative. Pulmonary is following. Otherwise no acute overnight issues. 06/30/2018 Patient is lying in the bed comfortably. No fever no chills. Breathing is much easier. Otherwise patient says that she is not back to her baseline breathing status. Steroids will be changed to by mouth. No nausea vomiting or abdominal pain. Patient is complaining of cervical neck pain which is also chronic. Anticipate discharge tomorrow with more clinical improvement. 07/01/2018 Patient is currently lying in the bed comfortably. Patient says that she could not sleep last night and her IV line blew out and had to place around 3 AM. Patient is also complaining of left ear pain and neck pain as well. Otoscopic evaluation showed no evidence of fluid, redness or bulging of the tympanic membrane. Otherwise patient is being continued on antibiotics and oral steroids. Patient is cleared for discharge from pulmonary standpoint. Patient will be discharged tomorrow. 07/02/2018 significant clinical improvement. This morning complaining of neck pain ,severe tenderness over bilateral occipital nerve, in a patient with history of severe chronic back pain, occipital neuralgia. No improvement with conservative management. Patient follows with neurologist Dr. Sharp. Discussed patient's current clinical presentation over the phone with Dr. Barry , who recommended Dr. Sivla, pain management, do a occipital nerve block. Dr. Silva Consulted, performed nerve block. Tolerated procedure well. Significant clinical improvement. Patient has been cleared by all consults for discharge. Patient will be discharged home in a stable condition with guarded prognosis. Per Dr. Brennan. Patient to maintain prescheduled appointment in July. - Exam PHYSICAL EXAMINATION: General: no acute distress, awake alert and oriented. Neck: supple,minimal tenderness. CHEST EXAMINATION: Trachea is central. Symmetrical expansion. Lungs clear to auscultation. Nonlabored breathing. No wheezing. CARDIAC: Normal S1, S2 with no gallops. No murmurs. ABDOMEN: Soft. Bowel sounds normal. No organomegaly. No abdominal bruits. Extremities: reveal no edema. No clubbing or cyanosis. Neurologically awake, alert, oriented x3 with well-coordinated movements. No focal deficits noted. The impression and plan of care has been dictated as directed. : I performed a history and examination of this patient, discussed the same with the dictator. I agree with the dictator's note ,documented as a scribe. Any additional findings or plans will be noted. Time taken: 35 minutes. Patient Condition at Discharge: Stable Plan - Discharge Summary Discharge Rx Participant: No New Discharge Prescriptions: New Levofloxacin [Levaquin] 750 mg PO Q24HR #5 tab Continue Atorvastatin Calcium [Lipitor] 20 mg PO HS Cholecalciferol [Vitamin D3] 3,000 unit PO DAILY@0700 Ondansetron [Zofran] 4 mg PO Q6H PRN PRN Reason: Nausea And Vomiting L.acidoph,Paracasei, B.lactis [Probiotic] 2 cap PO BID amLODIPine [Norvasc] 5 mg PO DAILY Liquid Health Multiple 30 ml PO DAILY Cranberry 300mg 300 mg PO BID HYDROcodone/APAP 10-325MG [Allston 10-325] 1 - 2 tab PO Q4-6H PRN MDD 6 TABS PRN Reason: Pain Metoprolol Succinate (ER) [Toprol XL] 50 mg PO HS Meclizine [Antivert] 25 mg PO QID PRN PRN Reason: Vertigo Thiamine [Vitamin B-1] 100 mg PO DAILY Magnesium Oxide 400 mg PO QAM Vitamin B Complex Drops 1 drop PO BID Pantoprazole [Protonix] 40 mg PO BID PRN PRN Reason: Heartburn Folic Acid 1 mg PO DAILY Hydrocortisone [Cortef] 10 mg PO AC-LUNCH Insulin Glargine,Hum.rec.anlog [Lantus Solostar] 36 units SQ HS@2200 Hydrocortisone [Cortef] 15 mg PO AC-BRKFST Phenylephrine HCl/Prometh HCl [Promethazine Vc Syrup] 5 ml PO Q6H PRN PRN Reason: Cough Cyclobenzaprine [Flexeril] 10 mg PO TID PRN PRN Reason: Muscle Spasm Melatonin 5 mg PO HS PRN PRN Reason: Insomnia Hydrocortisone [Cortef] 5 mg PO HS Amitrip2%/Lido5%/Gabapentin/Hxlqmlt97%/Tybcfkfc64% Compound Cream 1 applic TOPICAL BID PRN PRN Reason: Pain Aspirin 81 mg PO DAILY #0 Insulin Aspart [NovoLOG Flexpen] 18 units SQ AC-BRKFST #0 Insulin Aspart [NovoLOG Flexpen] 18 units SQ AC-LUNCH #0 Insulin Aspart [NovoLOG Flexpen] 20 unit SQ AC-SUPPER #0 Discontinued Lisinopril [Prinivil] 20 mg PO AC-BRKFST Discharge Medication List Atorvastatin Calcium [Lipitor] 20 mg PO HS 12/01/14 [History] Cholecalciferol [Vitamin D3] 3,000 unit PO DAILY@0700 12/01/14 [History] L.acidoph,Paracasei, B.lactis [Probiotic] 2 cap PO BID 10/12/15 [History] Ondansetron [Zofran] 4 mg PO Q6H PRN 10/12/15 [History] amLODIPine [Norvasc] 5 mg PO DAILY 11/17/15 [History] Cranberry 300mg 300 mg PO BID 07/06/17 [History] HYDROcodone/APAP 10-325MG [Allston 10-325] 1 - 2 tab PO Q4-6H PRN MDD 6 TABS 07/06 [History] Liquid Health Multiple 30 ml PO DAILY 07/06/17 [History] Metoprolol Succinate (ER) [Toprol XL] 50 mg PO HS 07/06/17 [History] Meclizine [Antivert] 25 mg PO QID PRN 11/26/17 [History] Folic Acid 1 mg PO DAILY 02/26/18 [History] Magnesium Oxide 400 mg PO QAM 02/26/18 [History] Pantoprazole [Protonix] 40 mg PO BID PRN 02/26/18 [History] Thiamine [Vitamin B-1] 100 mg PO DAILY 02/26/18 [History] Vitamin B Complex Drops 1 drop PO BID 02/26/18 [History] Hydrocortisone [Cortef] 10 mg PO AC-LUNCH 05/18/18 [History] Hydrocortisone [Cortef] 15 mg PO AC-BRKFST 05/18/18 [History] Insulin Glargine,Hum.rec.anlog [Lantus Solostar] 36 units SQ HS@2200 05/18/18 [ History] Amitrip2%/Lido5%/Gabapentin/Ffawjmq71%/Pkmrxqav39% Compound Cream 1 applic TOPICAL BID PRN 06/26/18 [History] Cyclobenzaprine [Flexeril] 10 mg PO TID PRN 06/26/18 [History] Hydrocortisone [Cortef] 5 mg PO HS 06/26/18 [History] Melatonin 5 mg PO HS PRN 06/26/18 [History] Phenylephrine HCl/Prometh HCl [Promethazine Vc Syrup] 5 ml PO Q6H PRN 06/26/18 [ History] Aspirin 81 mg PO DAILY #0 07/02/18 [Rx] Insulin Aspart [NovoLOG Flexpen] 18 units SQ AC-BRKFST #0 07/02/18 [Rx] Insulin Aspart [NovoLOG Flexpen] 18 units SQ AC-LUNCH #0 07/02/18 [Rx] Insulin Aspart [NovoLOG Flexpen] 20 unit SQ AC-SUPPER #0 07/02/18 [Rx] Levofloxacin [Levaquin] 750 mg PO Q24HR #5 tab 07/02/18 [Rx] Follow up Appointment(s)/Referral(s): China Barry MD [STAFF PHYSICIAN] - 3 Weeks (as previously scheduled) Allyson Guardado MD [Primary Care Provider] - 1 Week Pablo Silva MD [STAFF PHYSICIAN] - 4 Weeks Alton Frye MD [STAFF PHYSICIAN] - 1 Week Ambulatory/Diagnostic Orders: Complete Blood Count w/diff [LAB.AMB] Time Frame: 3 Days, Location: None Selected Activity/Diet/Wound Care/Special Instructions: cardiac diet , consist. carb activity is limited till you see your doctor Discharge Disposition: HOME SELF-CARE
== END 2018-07-02 16:23 | disposition home or self-care (01) | DRG 191 ==
LOC: EC 21:38 → 3NMEDONC 06-27 03:10 → 4SSUR 06-27 13:37 → OBSVTOIN 06-28 15:51
PROVIDERS: ADMIT Internal Medicine; ATTEND Internal Medicine
PROC: 3E0R3BZ Introduction of Anesthetic Agent into Spinal Canal, Percutaneous Approach (ICD-10-PCS; 2018-07-02)
PROC: 3E0R33Z Introduction of Anti-inflammatory into Spinal Canal, Percutaneous Approach (ICD-10-PCS; principal; 2018-07-02 15:00)
DX: J44.1 Chronic obstructive pulmonary disease with (acute) exacerbation (principal); N39.0 Urinary tract infection, site not specified; E27.40 Unspecified adrenocortical insufficiency; J44.0 Chronic obstructive pulmonary disease with (acute) lower respiratory infection; J20.9 Acute bronchitis, unspecified; M54.81 Occipital neuralgia; M15.9 Polyosteoarthritis, unspecified; M79.7 Fibromyalgia; Z79.4 Long term (current) use of insulin; Z79.82 Long term (current) use of aspirin; Z79.899 Other long term (current) drug therapy; Z79.52 Long term (current) use of systemic steroids; E11.65 Type 2 diabetes mellitus with hyperglycemia; E78.5 Hyperlipidemia, unspecified; G47.33 Obstructive sleep apnea (adult) (pediatric); G89.4 Chronic pain syndrome; I10 Essential (primary) hypertension; N28.9 Disorder of kidney and ureter, unspecified; Z80.49 Family history of malignant neoplasm of other genital organs; Z82.3 Family history of stroke; Z82.49 Family history of ischemic heart disease and other diseases of the circulatory system; Z83.3 Family history of diabetes mellitus; Z86.14 Personal history of Methicillin resistant Staphylococcus aureus infection; Z86.718 Personal history of other venous thrombosis and embolism; Z87.440 Personal history of urinary (tract) infections; Z87.442 Personal history of urinary calculi; Z90.710 Acquired absence of both cervix and uterus; Z83.6 Family history of other diseases of the respiratory system; M54.2 Cervicalgia; H92.02 Otalgia, left ear; Z98.1 Arthrodesis status; Z88.1 Allergy status to other antibiotic agents; Z88.5 Allergy status to narcotic agent; Z88.0 Allergy status to penicillin; Z88.2 Allergy status to sulfonamides; Z88.8 Allergy status to other drugs, medicaments and biological substances; Z98.42 Cataract extraction status, left eye; Z98.41 Cataract extraction status, right eye; Z87.01 Personal history of pneumonia (recurrent); Z89.421 Acquired absence of other right toe(s); Z90.49 Acquired absence of other specified parts of digestive tract
CPT/HCPCS: 36415; 64405; 71046; 80048; 80053; 81001; 82550; 82553; 83036; 84484; 85025; 85379; 85610; 85730; 87040; 87086; 93005; 94640; 94667; 94668; 94760

== ENCOUNTER 2018-07-29 16:23 | Emergency (ER) | payer MEDICARE, BC ==
[2018-07-29 16:53] VITALS: RESP 18
[2018-07-29] MEDS ORDERED: HYDROmorphone 0.5 MG/0.5 ML SYRINGE IVP STA ×2 (17:20→19:22)
--- NOTE | 2018-07-29 17:23 | ED ---
SOB HPI - General Chief Complaint: Shortness of Breath Stated Complaint: BACK AND HEAD PAIN/DOMINGA Time Seen by Provider: 07/29/18 17:02 Source: patient Mode of arrival: wheelchair Limitations: no limitations - History of Present Illness Initial Comments: Patient is a 59-year-old female presenting for shortness of breath, back pain and headaches. The patient states that she has been having intermittent shortness of breath since last night. She denies any chest pain but states that 2 weeks ago, she was admitted for 6 days for pneumonia. She admits to some nausea but no vomiting or diarrhea. She denies any fevers or chills and states that she also has lower back pain which is one of the biggest reasons why she came in. Last week, she fell and slipped on concrete steps causing her to fall backwards and injuring her lower back. She's been able to walk since then and denies any bowel incontinence, urinary retention or saddle anesthesia. She also admits to headache which is chronic for her and secondary to occipital nerve problems. - Related Data Home Medications Medication Instructions Recorded Confirmed Atorvastatin Calcium [Lipitor] 20 mg PO HS 12/01/14 07/29/18 Cholecalciferol [Vitamin D3] 3,000 unit PO DAILY@0700 12/01/14 07/29/18 L.acidoph,Paracasei, B.lactis 2 cap PO BID 10/12/15 07/29/18 [Probiotic] Ondansetron [Zofran] 4 mg PO Q6H PRN 10/12/15 07/29/18 amLODIPine [Norvasc] 5 mg PO DAILY 11/17/15 07/29/18 Cranberry 300mg 300 mg PO BID 07/06/17 07/29/18 HYDROcodone/APAP 10-325MG [Bergen 1 - 2 tab PO Q4-6H PRN MDD 6 TABS 07/06/1704/06 10-325] Liquid Health Multiple 30 ml PO DAILY 07/06/17 07/29/18 Metoprolol Succinate (ER) [Toprol 50 mg PO HS 07/06/17 07/29/18 XL] Meclizine [Antivert] 25 mg PO QID PRN 11/26/17 07/29/18 Folic Acid 1 mg PO DAILY 02/26/18 07/29/18 Magnesium Oxide 400 mg PO QAM 02/26/18 07/29/18 Pantoprazole [Protonix] 40 mg PO BID PRN 02/26/18 07/29/18 Thiamine [Vitamin B-1] 100 mg PO DAILY 02/26/18 07/29/18 Vitamin B Complex Drops 1 drop PO BID 02/26/18 07/29/18 Hydrocortisone [Cortef] 10 mg PO AC-LUNCH 05/18/18 07/29/18 Hydrocortisone [Cortef] 15 mg PO AC-BRKFST 05/18/18 07/29/18 Insulin Glargine,Hum.rec.anlog 36 units SQ HS@2200 05/18/18 07/29/18 [Lantus Solostar] Amitrip2%/Lido5%/Gabapentin/Zwsajvd94%/Vfaqokcs13% 1 applic TOPICAL BID PRN 02/0407/29/18 Compound Cream Cyclobenzaprine [Flexeril] 10 mg PO TID PRN 06/26/18 07/29/18 Hydrocortisone [Cortef] 5 mg PO HS 06/26/18 07/29/18 Melatonin 5 mg PO HS PRN 06/26/18 07/29/18 Phenylephrine HCl/Prometh HCl 5 ml PO Q6H PRN 06/26/18 07/29/18 [Promethazine Vc Syrup] Previous Rx's Medication Instructions Recorded Aspirin 81 mg PO DAILY #0 07/02/18 Insulin Aspart [NovoLOG Flexpen] 18 units SQ AC-BRKFST #0 07/02/18 Insulin Aspart [NovoLOG Flexpen] 18 units SQ AC-LUNCH #0 07/02/18 Insulin Aspart [NovoLOG Flexpen] 20 unit SQ AC-SUPPER #0 07/02/18 Hydrocodone/Acetaminophen [Bergen 1 tab PO Q6HR PRN #12 tab 07/29/18 7.5-325] Lidocaine 5% Patch [Lidoderm] 1 patch TOPICAL DAILY #10 patch 07/29/18 Methocarbamol [Robaxin-750] 750 mg PO TID PRN #21 tablet 07/29/18 Allergies Allergy/AdvReac Type Severity Reaction Status Date / Time butorphanol tartrate Allergy BLISTERS Verified 07/29/18 17:54 [From Stadol] IN MOUTH ceftriaxone [From Rocephin] Allergy Unknown Verified 07/29/18 17:54 clarithromycin [From Biaxin] Allergy Rash/Hives Verified 07/29/18 17:54 codeine Allergy Rash/Hives Verified 07/29/18 17:54 ergotamine tartrate Allergy Unknown Verified 07/29/18 17:54 [From Cafergot] erythromycin base Allergy RASH, GI Verified 07/29/18 17:54 [From E-Mycin] SYMPTOMS ketorolac tromethamine Allergy Rash/Hives Verified 07/29/18 17:54 [From Toradol] liraglutide [From Victoza] Allergy Rash/Hives Verified 07/29/18 17:54 monosodium glutamate [MSG] Allergy Nausea & Verified 07/29/18 17:54 Vomiting morphine Allergy Rash/Hives Verified 07/29/18 17:54 nalbuphine HCl [From Nubain] Allergy Nausea & Verified 07/29/18 17:54 Vomiting Penicillins Allergy Rash/Hives Verified 07/29/18 17:54 pentazocine lactate Allergy SEVERE Verified 07/29/18 17:54 [From Talwin] BLISTERS IN MOUTH pregabalin [From Lyrica] Allergy Rash/Hives Verified 07/29/18 17:54 propoxyphene HCl Allergy Rash/Hives Verified 07/29/18 17:54 [From Darvon] Sulfa (Sulfonamide Allergy Rash/Hives Verified 07/29/18 17:54 Antibiotics) tramadol Allergy Unknown Verified 07/29/18 17:54 Review of Systems ROS Statement: Those systems with pertinent positive or pertinent negative responses have been documented in the HPI. Constitutional: Negative for chills, fatigue and fever. HENT: Negative for congestion. Respiratory: Negative for chest tightness, and wheezing. Negative for cough. Positive for shortness breath Cardiovascular: Negative for chest pain and palpitations. Gastrointestinal: Negative for abdominal pain. Negative for abdominal distention , diarrhea, nausea and vomiting. Genitourinary: Negative for dysuria. Musculoskeletal: Positive for back pain, negative for neck pain and neck stiffness. Skin: Negative for color change. Neurological: Negative for dizziness, speech difficulty, weakness and light- headedness. Positive for headache Psychiatric/Behavioral: Negative for agitation and confusion. Negative for anxiety ROS Other: All systems not noted in ROS Statement are negative. 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 Past Anesthesia/Blood Transfusion Reactions: Motion Sickness Additional Past Anesthesia/Blood Transfusion Reaction / Comment(s): never recieved blood Past Psychological History: No Psychological Hx Reported Smoking Status: Never smoker Past Alcohol Use History: None Reported Past Drug Use History: None Reported - Past Family History Father Family Medical History: Coronary Artery Disease (CAD), CVA/TIA, Diabetes Mellitus, Myocardial Infarction ([place]), Pneumonia Additional Family Medical History / Comment(s): ather at the age of 78yrs from [place] and pneumonia. Mother Family Medical History: Cancer Additional Family Medical History / Comment(s): Mother had uterine cancer. She is 96yrs old. General Exam - General Exam Comments Initial Comments: Constitutional: Pt is oriented to person, place, and time. Pt appears well- developed and well-nourished. No distress. HENT: Head: Normocephalic and atraumatic. Eyes: EOM are normal. Neck: Normal range of motion. Neck supple. Cardiovascular: Normal rate, regular rhythm, S1 normal, S2 normal and normal heart sounds. Exam reveals no gallop and no friction rub. No murmur heard. Pulmonary/Chest: Effort normal and breath sounds normal. No tachypnea and no bradypnea. No respiratory distress. No wheezes or rales noted. Abdominal: Soft. Bowel sounds are normal. Pt exhibits no shifting dullness, no distension, no pulsatile liver, no fluid wave, no abdominal bruit and no ascites. There is no tenderness. There is no rigidity, no rebound, no guarding, no tenderness at McBurney's point and negative Tanner's sign. Musculoskeletal: Normal range of motion. No midline tenderness to the C-spine, T-spine, L-spine. Muscle strength 5 out of 5 of the lower extremities. no neurosensory deficits Neurological: Pt is alert and oriented to person, place, and time. No cranial nerve deficit. Skin: Skin is warm and dry. No rash noted. Pt is not diaphoretic. No erythema. No pallor. Psychiatric: Pt has a normal mood and affect. Pt behavior is normal. Thought content normal. Limitations: no limitations Course Vital Signs 07/29/18 07/29/18 16:49 21:07 Temperature 98.3 F 97.7 F Pulse Rate 71 78 Respiratory 18 18 Rate Blood Pressure 113/71 138/74 O2 Sat by Pulse 98 98 Oximetry Medical Decision Making - Medical Decision Making EKG shows normal sinus rhythm with a rate of 70 bpm, DC interval 136, QRS 80, QTC 410. There are no significant ST depressions or elevations. Operatory studies showed that there was no significant leukocytosis from a cardiac standpoint, d-dimer was elevated and therefore CT PE study was performed and noted to be negative as well for infiltrate or pulmonary embolism. BMP was also not significantly elevated and troponin was negative. Lumbar spine CT was also performed and negative for acute pathology. His explained that the patient's symptoms are likely secondary to musculoskeletal strain from the fall and from a cardiac standpoint, the patient was not experiencing any chest pain and therefore is felt that the patient could be safely discharged home.Explained all labs and diagnostic test results and that we will discharge the patient home and patient is to follow up with PCP in 1-2 days and return to the ED if symptoms worsen. Pt is agreeable to plan. - Lab Data Result diagrams: 07/29/18 17:49 07/29/18 17:49 Lab Results 07/29/18 07/29/18 07/29/18 Range/Units 17:49 17:49 17:49 WBC 7.0 (3.8-10.6) k/uL RBC 4.93 (3.80-5.40) m/uL Hgb 13.0 (11.4-16.0) gm/dL Hct 40.7 (34.0-46.0) % MCV 82.5 (80.0-100.0) fL MCH 26.4 (25.0-35.0) pg MCHC 32.0 (31.0-37.0) g/dL RDW 17.6 H (11.5-15.5) % Plt Count 299 (150-450) k/uL Neutrophils % 69 % Lymphocytes % 19 % Monocytes % 9 % Eosinophils % 1 % Basophils % 0 % Neutrophils # 4.8 (1.3-7.7) k/uL Lymphocytes # 1.4 (1.0-4.8) k/uL Monocytes # 0.6 (0-1.0) k/uL Eosinophils # 0.1 (0-0.7) k/uL Basophils # 0.0 (0-0.2) k/uL Anisocytosis Slight PT 9.3 (9.0-12.0) sec INR 0.8 (<1.2) APTT 18.6 L (22.0-30.0) sec D-Dimer 0.79 H (<0.60) mg/L FEU Sodium 142 (137-145) mmol/L Potassium 4.6 (3.5-5.1) mmol/L Chloride 103 (98-107) mmol/L Carbon Dioxide 31 H (22-30) mmol/L Anion Gap 8 mmol/L BUN 26 H (7-17) mg/dL Creatinine 0.79 (0.52-1.04) mg/dL Est GFR (CKD-EPI)AfAm 90 (>60 ml/min/1.73 sqM) Est GFR (CKD-EPI)NonAf 78 (>60 ml/min/1.73 sqM) Glucose 127 H (74-99) mg/dL Calcium 11.5 H (8.4-10.2) mg/dL Magnesium 1.9 (1.6-2.3) mg/dL Total Bilirubin 1.0 (0.2-1.3) mg/dL AST 20 (14-36) U/L ALT 26 (9-52) U/L Alkaline Phosphatase 72 (38-126) U/L Troponin I (0.000-0.034) ng/mL NT-Pro-B Natriuret Pep pg/mL Total Protein 6.8 (6.3-8.2) g/dL Albumin 4.3 (3.5-5.0) g/dL 07/29/18 07/29/18 Range/Units 17:49 17:49 WBC (3.8-10.6) k/uL RBC (3.80-5.40) m/uL Hgb (11.4-16.0) gm/dL Hct (34.0-46.0) % MCV (80.0-100.0) fL MCH (25.0-35.0) pg MCHC (31.0-37.0) g/dL RDW (11.5-15.5) % Plt Count (150-450) k/uL Neutrophils % % Lymphocytes % % Monocytes % % Eosinophils % % Basophils % % Neutrophils # (1.3-7.7) k/uL Lymphocytes # (1.0-4.8) k/uL Monocytes # (0-1.0) k/uL Eosinophils # (0-0.7) k/uL Basophils # (0-0.2) k/uL Anisocytosis PT (9.0-12.0) sec INR (<1.2) APTT (22.0-30.0) sec D-Dimer (<0.60) mg/L FEU Sodium (137-145) mmol/L Potassium (3.5-5.1) mmol/L Chloride (98-107) mmol/L Carbon Dioxide (22-30) mmol/L Anion Gap mmol/L BUN (7-17) mg/dL Creatinine (0.52-1.04) mg/dL Est GFR (CKD-EPI)AfAm (>60 ml/min/1.73 sqM) Est GFR (CKD-EPI)NonAf (>60 ml/min/1.73 sqM) Glucose (74-99) mg/dL Calcium (8.4-10.2) mg/dL Magnesium (1.6-2.3) mg/dL Total Bilirubin (0.2-1.3) mg/dL AST (14-36) U/L ALT (9-52) U/L Alkaline Phosphatase (38-126) U/L Troponin I <0.012 (0.000-0.034) ng/mL NT-Pro-B Natriuret Pep 451 pg/mL Total Protein (6.3-8.2) g/dL Albumin (3.5-5.0) g/dL Disposition Clinical Impression: Shortness of breath, Back pain Disposition: HOME SELF-CARE Condition: Good Instructions (If sedation given, give patient instructions): Back Pain (ED) Prescriptions: Hydrocodone/Acetaminophen [Bergen 7.5-325] 1 tab PO Q6HR PRN #12 tab PRN Reason: Pain Lidocaine 5% Patch [Lidoderm] 1 patch TOPICAL DAILY #10 patch Methocarbamol [Robaxin-750] 750 mg PO TID PRN #21 tablet PRN Reason: Pain Is patient prescribed a controlled substance at d/c from ED?: Yes When asked, does pt state using other controlled substances?: No If prescribed controlled substance>3 days was MAPS reviewed?: Prescribed <3 Days If opioid is for acute pain is fill amount 7 days or less?: Yes If Rx opioid, was Start Talking consent form obtained?: Yes Referrals: Allyson Guardado MD [Primary Care Provider] - 1-2 days Time of Disposition: 20:56
[2018-07-29 18:02] LABS: Anisocytosis Slight; Basophils % (A) 0 %; Eosinophils # (A) 0.1 k/uL (0-0.7); Eosinophils % (A) 1 %; HCT 40.7 % (34.0-46.0); Lymphocytes # (A) 1.4 k/uL (1.0-4.8); Lymphocytes % (A) 19 %; MCH 26.4 pg (25.0-35.0); MCV 82.5 fL (80.0-100.0); Mean Platelet Volume 7.1; Monocytes # (A) 0.6 k/uL (0-1.0); Monocytes % (A) 9 %; Neutrophils # (A) 4.8 k/uL (1.3-7.7); Neutrophils % (A) 69 %; Platelet Count 299 k/uL (150-450); RBC 4.93 m/uL (3.80-5.40); RDW 17.6 % (11.5-15.5)
[2018-07-29 18:19] LABS: Albumin 4.3 g/dL (3.5-5.0); Calcium 11.5 mg/dL (8.4-10.2); Magnesium 1.9 mg/dL (1.6-2.3); Potassium 4.6 mmol/L (3.5-5.1); Total Protein 6.8 g/dL (6.3-8.2)
[2018-07-29 18:33] LABS: INR 0.8 (<1.2); Prothrombin Time 9.3 sec (9.0-12.0)
[2018-07-29 18:35] LABS: D-Dimer 0.79 mg/L FEU (<0.60); Partial Thromboplastin Time 18.6 sec (22.0-30.0)
[2018-07-29] MEDS ORDERED: METHOCARBAMOL 750 MG TAB PO STA (19:22)
--- NOTE | 2018-07-29 20:25 | CT ---
EXAMINATION TYPE: CT lumbar spine wo con DATE OF EXAM: 07/29/2018 COMPARISON: 05/12/2018 CT abdomen pelvis HISTORY: Lower back pain after fall injury x1 week ago CT DLP: 1209 mGycm CONTRAST: None TECHNIQUE: CT of the lumbar spine is performed on a spiral scan at 3 mm thick sections. Reconstructed images are performed in the coronal and sagittal planes. FINDINGS: T12-L1: No focal disc herniation or significant disc bulge is evident. No spinal canal stenosis or neural foraminal stenosis is present. L1-L2: No focal disc herniation or significant disc bulge is evident. No spinal canal stenosis or n eural foraminal stenosis is present L2-L3: There is loss of disc height is level. Vacuum disc phenomenon is present. There is some limita tion due to beam hardening artifact from pedicle screws. L3-L4: There is loss of disc height to this level. Laminectomies been performed. Beam hardening artif act limits evaluation L4-L5: There is loss of disc height to this level. Beam hardening artifact from pedicle screws are pr esent. L5-S1: Loss of disc height is to this level. Laminectomy has been performed. Scoliosis is present. IMPRESSION: Limited examination due to the beam hardening artifact from prior pedicle screws and fixation rods. O bvious acute abnormality is not identified. No obvious stenosis is present.
--- NOTE | 2018-07-29 20:26 | XR ---
EXAMINATION TYPE: XR chest 2V DATE OF EXAM: 07/29/2018 COMPARISON: 06/26/2018 INDICATION: Difficulty breathing TECHNIQUE: Frontal and lateral views of the chest are obtained. FINDINGS: The heart size is mild the prominent. The pulmonary vasculature is normal. The lungs are clear. IMPRESSION: 1. No acute pulmonary process.
--- NOTE | 2018-07-29 20:29 | CT ---
CT CHEST FOR PULMONARY EMBOLISM. EXAMINATION TYPE: CT chest angio for PE DATE OF EXAM: 07/29/2018 INDICATION: Shortness of breath. CT DLP: 304.4 mGycm, Automated exposure control for dose reduction was used. CONTRAST: Patient injected with 57ml mL of Isovue 370. COMPARISON: None TECHNIQUE: CT of the chest is performed on a spiral scan at 2 mm thick sections. Study is performed with intravenous contrast timed for evaluation for pulmonary embolism. This will limit additional po rtions of the evaluation. 3-D MIP images reconstructed by the technologist are reviewed on the compu ter in the coronal and sagittal planes. FINDINGS: No persistent filling defects are evident to suggest an acute pulmonary embolism. No aortic dissectio n is identified. No mediastinal or hilar adenopathy enlarged by CT criteria is evident. The ascending aorta diameter at the level of the main pulmonary artery is 3.6 cm. The main pulmonary artery diameter at the bifur cation is 3.3 cm. Small areas of pneumonitis are at the lung bases. Correlate for atelectasis. Limited CT section through the upper abdomen are unremarkable. IMPRESSIONS: 1. No acute pulmonary embolism.
[2018-07-29 21:08] VITALS: BP 138/74; PULSE 78; TEMP 97.7
== END 2018-07-29 21:08 | disposition home or self-care (01) ==
LOC: EC 16:23
DX: R06.02 Shortness of breath (principal); M54.9 Dorsalgia, unspecified; R51 Headache; E11.9 Type 2 diabetes mellitus without complications; M79.7 Fibromyalgia; E78.5 Hyperlipidemia, unspecified; I10 Essential (primary) hypertension; M19.90 Unspecified osteoarthritis, unspecified site; G47.33 Obstructive sleep apnea (adult) (pediatric); Z99.89 Dependence on other enabling machines and devices; Z86.14 Personal history of Methicillin resistant Staphylococcus aureus infection; Z86.718 Personal history of other venous thrombosis and embolism; Z79.4 Long term (current) use of insulin; Z79.899 Other long term (current) drug therapy; Z88.0 Allergy status to penicillin; Z88.1 Allergy status to other antibiotic agents; Z88.2 Allergy status to sulfonamides; Z88.5 Allergy status to narcotic agent; Z88.8 Allergy status to other drugs, medicaments and biological substances; Z88.6 Allergy status to analgesic agent; Z82.49 Family history of ischemic heart disease and other diseases of the circulatory system
CPT/HCPCS: 36415; 93005; 85379; 83880; 80053; 83735; 84484; 85025; 85610; 85730; 71046; 72131; 71275; 99285; 96374; 96376; J1170; Q9967

== ENCOUNTER 2018-08-12 16:46 | Emergency (ER) | payer MEDICARE, BC ==
[2018-08-12] MEDS ORDERED: ACETAMINOPHEN TAB 500 MG TAB PO STA (16:58)
[2018-08-12] MEDS ORDERED: SODIUM CHLORIDE 0.9% 1,000 ML IV STA ×3 (16:58→20:42)
[2018-08-12] MEDS ORDERED: HYDROCORTISONE SUCCINATE 100 MG/2 ML VIAL IV STA (16:58)
[2018-08-12] MEDS ORDERED: SODIUM CHLORIDE 0.9% 500 ML 500 ML IV STA (16:58)
[2018-08-12] MEDS ORDERED: HYDROmorphone 1 MG/ML 1 ML SYRINGE IVP STA ×2 (16:58→19:55)
--- NOTE | 2018-08-12 17:00 | ED ---
Weakness HPI - General Chief complaint: Abdominal Pain Stated complaint: UTI Time Seen by Provider: 08/12/18 16:53 Source: patient, RN notes reviewed, old records reviewed Mode of arrival: EMS Limitations: no limitations - History of Present Illness Initial comments: This is a 67-year-old female the ER for evaluation of weakness. States she is adrenal insufficiency believes she is having episodic currently. No recent travel history no sick contacts. No fevers. She does believe she also has urinary tract infection she does take her urine test at home and believes have been mildly abnormal lately. But again denies abdominal pain or fever. No recent change in medications. MD Complaint: generalized weakness -: days(s) Location: generalized Severity: moderate Severity scale (1-10): 6 Consistency: intermittent Improves with: none Worsens with: none Context: recent illness Associated Symptoms: nausea/vomiting - Related Data Home Medications Medication Instructions Recorded Confirmed Atorvastatin Calcium [Lipitor] 20 mg PO HS 12/01/14 08/12/18 Cholecalciferol [Vitamin D3] 3,000 unit PO DAILY@0700 12/01/14 08/12/18 L.acidoph,Paracasei, B.lactis 2 cap PO BID 10/12/15 08/12/18 [Probiotic] Ondansetron [Zofran] 4 mg PO Q6H PRN 10/12/15 08/12/18 amLODIPine [Norvasc] 5 mg PO DAILY 11/17/15 08/12/18 Cranberry 300mg 300 mg PO BID 07/06/17 08/12/18 HYDROcodone/APAP 10-325MG [[place] 1 - 2 tab PO Q4-6H PRN MDD 6 TABS 07/06/17 10-325] Liquid Health Multiple 30 ml PO DAILY 07/06/17 08/12/18 Metoprolol Succinate (ER) [Toprol 50 mg PO HS 07/06/17 08/12/18 XL] Meclizine [Antivert] 25 mg PO QID PRN 11/26/17 08/12/18 Magnesium Oxide 400 mg PO QAM 02/26/18 08/12/18 Pantoprazole [Protonix] 40 mg PO BID 02/26/18 08/12/18 Thiamine [Vitamin B-1] 100 mg PO DAILY 02/26/18 08/12/18 Vitamin B Complex Drops 1 drop PO BID 02/26/18 08/12/18 Hydrocortisone [Cortef] 10 mg PO AC-LUNCH 05/18/18 08/12/18 Hydrocortisone [Cortef] 15 mg PO AC-BRKFST 05/18/18 08/12/18 Insulin Glargine,Hum.rec.anlog 36 units SQ HS@2200 05/18/18 08/12/18 [Lantus Solostar] Cyclobenzaprine [Flexeril] 10 mg PO TID PRN 06/26/18 08/12/18 Hydrocortisone [Cortef] 5 mg PO HS 06/26/18 08/12/18 Melatonin 5 mg PO HS PRN 06/26/18 08/12/18 Budesonide [Pulmicort Flexhaler] 1 puff INHALATION RT-BID PRN 08/12/18 08/12/18 Ferrous Sulfate [Feosol] 325 mg PO DAILY 08/12/18 08/12/18 Folic Acid 0.4 mg PO DAILY 08/12/18 08/12/18 Glucagon Emergency Kit 1 mg IM ONCE PRN 08/12/18 08/12/18 Lisinopril 20 mg PO AC-BRKFST 08/12/18 08/12/18 Potassium 99 mg PO DAILY 08/12/18 08/12/18 Promethazine HCl [Phenergan Syrup] 6.25 mg PO Q6H PRN 08/12/18 08/12/18 Previous Rx's Medication Instructions Recorded Aspirin 81 mg PO DAILY #0 07/02/18 Insulin Aspart [NovoLOG Flexpen] 18 units SQ AC-KFST #0 07/02/18 Insulin Aspart [NovoLOG Flexpen] 18 units SQ AC-LUNCH #0 07/02/18 Insulin Aspart [NovoLOG Flexpen] 20 unit SQ AC-SUPPER #0 07/02/18 Allergies Allergy/AdvReac Type Severity Reaction Status Date / Time butorphanol tartrate Allergy BLISTERS Verified 08/12/18 17:28 [From Stadol] IN MOUTH ceftriaxone [From Rocephin] Allergy Unknown Verified 08/12/18 17:28 clarithromycin [From Biaxin] Allergy Rash/Hives Verified 08/12/18 17:28 codeine Allergy Rash/Hives Verified 08/12/18 17:28 ergotamine tartrate Allergy Unknown Verified 08/12/18 17:28 [From Cafergot] erythromycin base Allergy RASH, GI Verified 08/12/18 17:28 [From E-Mycin] SYMPTOMS ketorolac tromethamine Allergy Rash/Hives Verified 08/12/18 17:28 [From Toradol] liraglutide [From Victoza] Allergy Rash/Hives Verified 08/12/18 17:28 monosodium glutamate [MSG] Allergy Nausea & Verified 08/12/18 17:28 Vomiting morphine Allergy Rash/Hives Verified 08/12/18 17:28 nalbuphine HCl [From Nubain] Allergy Nausea & Verified 08/12/18 17:28 Vomiting Penicillins Allergy Rash/Hives Verified 08/12/18 17:28 pentazocine lactate Allergy SEVERE Verified 08/12/18 17:28 [From Talwin] BLISTERS IN MOUTH pregabalin [From Lyrica] Allergy Rash/Hives Verified 08/12/18 17:28 propoxyphene HCl Allergy Rash/Hives Verified 08/12/18 17:28 [From Darvon] Sulfa (Sulfonamide Allergy Rash/Hives Verified 08/12/18 17:28 Antibiotics) tramadol Allergy Unknown Verified 08/12/18 17:28 Review of Systems ROS Statement: Those systems with pertinent positive or pertinent negative responses have been documented in the HPI. ROS Other: All systems not noted in ROS Statement are negative. 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 Past Anesthesia/Blood Transfusion Reactions: Motion Sickness Additional Past Anesthesia/Blood Transfusion Reaction / Comment(s): never recieved blood Past Psychological History: No Psychological Hx Reported Smoking Status: Never smoker Past Alcohol Use History: None Reported Past Drug Use History: None Reported - Past Family History Father Family Medical History: Coronary Artery Disease (CAD), CVA/TIA, Diabetes Mellitus, Myocardial Infarction ([place]), Pneumonia Additional Family Medical History / Comment(s): ather at the age of 78yrs from [place] and pneumonia. Mother Family Medical History: Cancer Additional Family Medical History / Comment(s): Mother had uterine cancer. She is 96yrs old. General Exam Limitations: no limitations General appearance: alert, in no apparent distress, lethargic Head exam: Present: atraumatic, normocephalic, normal inspection Eye exam: Present: normal appearance, PERRL, EOMI. Absent: scleral icterus, conjunctival injection, periorbital swelling ENT exam: Present: normal exam, mucous membranes moist Neck exam: Present: normal inspection. Absent: tenderness, meningismus, lymphadenopathy Respiratory exam: Present: normal lung sounds bilaterally. Absent: respiratory distress, wheezes, rales, rhonchi, stridor Cardiovascular Exam: Present: regular rate, normal rhythm, normal heart sounds. Absent: systolic murmur, diastolic murmur, rubs, gallop, clicks GI/Abdominal exam: Present: soft, normal bowel sounds. Absent: distended, tenderness, guarding, rebound, rigid Extremities exam: Present: normal inspection, full ROM, normal capillary refill. Absent: tenderness, pedal edema, joint swelling, calf tenderness Back exam: Present: normal inspection Neurological exam: Present: alert, oriented X3, CN II-XII intact Psychiatric exam: Present: normal affect, normal mood Skin exam: Present: warm, dry, intact, normal color. Absent: rash Course Vital Signs 08/12/18 08/12/18 08/12/18 16:49 18:00 18:30 Temperature 98.2 F Pulse Rate 77 Respiratory 18 18 18 Rate Blood Pressure 177/97 151/85 158/91 O2 Sat by Pulse 95 93 L 96 Oximetry 08/12/18 20:46 Temperature 98.5 F Pulse Rate 69 Respiratory 20 Rate Blood Pressure 137/80 O2 Sat by Pulse 96 Oximetry - Reevaluation(s) Reevaluation #1: Medical record is reviewed Although patient is not feeling extremely well. She does feel well enough to go home, will increase steroid dose EKG Findings - EKG Comments: EKG Findings:: EKG shows sinus rhythm rate of 60, IL 142, QRS 76, QTc 436 Medical Decision Making - Medical Decision Making 59 female the ER for evaluation. Patient resents today for evaluation regards to weakness. Patient thinks she may have UTI, urine is negative labwork is normal. Patient will increase steroid dose and can be discharged home - Lab Data Result diagrams: 08/12/18 17:20 08/12/18 17:20 Lab Results 08/12/18 08/12/18 08/12/18 Range/Units 17:20 17:20 17:20 WBC 8.3 (3.8-10.6) k/uL RBC 4.47 (3.80-5.40) m/uL Hgb 12.6 (11.4-16.0) gm/dL Hct 39.3 (34.0-46.0) % MCV 87.8 D (80.0-100.0) fL MCH 28.1 (25.0-35.0) pg MCHC 32.0 (31.0-37.0) g/dL RDW 17.7 H (11.5-15.5) % Plt Count 266 (150-450) k/uL Neutrophils % 72 % Lymphocytes % 17 % Monocytes % 7 % Eosinophils % 3 % Basophils % 0 % Neutrophils # 6.0 (1.3-7.7) k/uL Lymphocytes # 1.4 (1.0-4.8) k/uL Monocytes # 0.6 (0-1.0) k/uL Eosinophils # 0.2 (0-0.7) k/uL Basophils # 0.0 (0-0.2) k/uL Hypochromasia Slight Anisocytosis Slight PT (9.0-12.0) sec INR (<1.2) APTT (22.0-30.0) sec Sodium 141 (137-145) mmol/L Potassium 4.2 (3.5-5.1) mmol/L Chloride 102 (98-107) mmol/L Carbon Dioxide 30 (22-30) mmol/L Anion Gap 9 mmol/L BUN 17 (7-17) mg/dL Creatinine 0.71 (0.52-1.04) mg/dL Est GFR (CKD-EPI)AfAm >90 (>60 ml/min/1.73 sqM) Est GFR (CKD-EPI)NonAf 88 (>60 ml/min/1.73 sqM) Glucose 182 H (74-99) mg/dL Plasma Lactic Acid Sudhir 1.9 (0.7-2.0) mmol/L Calcium 10.3 H (8.4-10.2) mg/dL Phosphorus 3.7 (2.5-4.5) mg/dL Magnesium 2.0 (1.6-2.3) mg/dL Total Bilirubin 0.9 (0.2-1.3) mg/dL AST 20 (14-36) U/L ALT 25 (9-52) U/L Alkaline Phosphatase 79 (38-126) U/L Troponin I (0.000-0.034) ng/mL Total Protein 6.7 (6.3-8.2) g/dL Albumin 4.2 (3.5-5.0) g/dL Urine Color Urine Appearance (Clear) Urine pH (5.0-8.0) Ur Specific [place] (1.001-1.035) Urine Protein (Negative) Urine Glucose (UA) (Negative) Urine Ketones (Negative) Urine Blood (Negative) Urine Nitrite (Negative) Urine Bilirubin (Negative) Urine Urobilinogen (<2.0) mg/dL Ur Leukocyte Esterase (Negative) 08/12/18 08/12/18 08/12/18 Range/Units 17:20 17:20 18:05 WBC (3.8-10.6) k/uL RBC (3.80-5.40) m/uL Hgb (11.4-16.0) gm/dL Hct (34.0-46.0) % MCV (80.0-100.0) fL MCH (25.0-35.0) pg MCHC (31.0-37.0) g/dL RDW (11.5-15.5) % Plt Count (150-450) k/uL Neutrophils % % Lymphocytes % % Monocytes % % Eosinophils % % Basophils % % Neutrophils # (1.3-7.7) k/uL Lymphocytes # (1.0-4.8) k/uL Monocytes # (0-1.0) k/uL Eosinophils # (0-0.7) k/uL Basophils # (0-0.2) k/uL Hypochromasia Anisocytosis PT 9.4 (9.0-12.0) sec INR 0.8 (<1.2) APTT 19.6 L (22.0-30.0) sec Sodium (137-145) mmol/L Potassium (3.5-5.1) mmol/L Chloride (98-107) mmol/L Carbon Dioxide (22-30) mmol/L Anion Gap mmol/L BUN (7-17) mg/dL Creatinine (0.52-1.04) mg/dL Est GFR (CKD-EPI)AfAm (>60 ml/min/1.73 sqM) Est GFR (CKD-EPI)NonAf (>60 ml/min/1.73 sqM) Glucose (74-99) mg/dL Plasma Lactic Acid Sudhir (0.7-2.0) mmol/L Calcium (8.4-10.2) mg/dL Phosphorus (2.5-4.5) mg/dL Magnesium (1.6-2.3) mg/dL Total Bilirubin (0.2-1.3) mg/dL AST (14-36) U/L ALT (9-52) U/L Alkaline Phosphatase (38-126) U/L Troponin I <0.012 (0.000-0.034) ng/mL Total Protein (6.3-8.2) g/dL Albumin (3.5-5.0) g/dL Urine Color Yellow Urine Appearance Clear (Clear) Urine pH 6.0 (5.0-8.0) Ur Specific [place] 1.020 (1.001-1.035) Urine Protein Negative (Negative) Urine Glucose (UA) Negative (Negative) Urine Ketones Negative (Negative) Urine Blood Negative (Negative) Urine Nitrite Negative (Negative) Urine Bilirubin Negative (Negative) Urine Urobilinogen <2.0 (<2.0) mg/dL Ur Leukocyte Esterase Negative (Negative) Disposition Clinical Impression: Generalized weakness, Abdominal pain Disposition: HOME SELF-CARE Condition: Good Instructions (If sedation given, give patient instructions): Abdominal Pain (ED ) Is patient prescribed a controlled substance at d/c from ED?: No Referrals: Allyson Guardado MD [Primary Care Provider] - 1-2 days
[2018-08-12 17:34] LABS: Anisocytosis Slight; Basophils % (A) 0 %; Eosinophils # (A) 0.2 k/uL (0-0.7); Eosinophils % (A) 3 %; HCT 39.3 % (34.0-46.0); HGB 12.6 gm/dL (11.4-16.0); Hypochromasia Slight; Lymphocytes # (A) 1.4 k/uL (1.0-4.8); Lymphocytes % (A) 17 %; MCH 28.1 pg (25.0-35.0); Mean Platelet Volume 7.5; Monocytes # (A) 0.6 k/uL (0-1.0); Monocytes % (A) 7 %; Neutrophils % (A) 72 %; Platelet Count 266 k/uL (150-450); RBC 4.47 m/uL (3.80-5.40); RDW 17.7 % (11.5-15.5); WBC 8.3 k/uL (3.8-10.6)
[2018-08-12 17:39] LABS: MCV 87.8 fL (80.0-100.0)
[2018-08-12 17:46] LABS: ALT 25 U/L (9-52); AST 20 U/L (14-36); Albumin 4.2 g/dL (3.5-5.0); Alkaline Phosphatase 79 U/L (38-126); Anion Gap 9 mmol/L; Blood Urea Nitrogen 17 mg/dL (7-17); Calcium 10.3 mg/dL (8.4-10.2); Carbon Dioxide 30 mmol/L (22-30); Chloride 102 mmol/L (98-107); Glucose 182 mg/dL (74-99); Phosphorus 3.7 mg/dL (2.5-4.5); Potassium 4.2 mmol/L (3.5-5.1); Sodium 141 mmol/L (137-145); Total Bilirubin 0.9 mg/dL (0.2-1.3); Total Protein 6.7 g/dL (6.3-8.2)
[2018-08-12 17:49] LABS: INR 0.8 (<1.2); Prothrombin Time 9.4 sec (9.0-12.0)
[2018-08-12 17:53] LABS: Partial Thromboplastin Time 19.6 sec (22.0-30.0)
[2018-08-12] MEDS ORDERED: HYDROCORTISONE SUCCINATE 100 MG/2 ML VIAL IV SCH (18:00)
[2018-08-12 18:31] LABS: Appearance,Urine Clear (Clear); Bilirubin,Urine Negative (Negative); Blood,Urine Negative (Negative); Color,Urine Yellow; Glucose,Urine (UA) Negative (Negative); Ketones,Urine Negative (Negative); Leukocyte Esterase,Urine Negative (Negative); Nitrite,Urine Negative (Negative); Protein,Urine Negative (Negative); Urobilinogen,Urine <2.0 mg/dL (<2.0)
--- NOTE | 2018-08-12 18:51 | CT ---
EXAMINATION TYPE: CT abdomen pelvis wo con DATE OF EXAM: 08/12/2018 COMPARISON: 05/12/2028 INDICATION: Right sided back and groin pain DLP: 748.3 mGycm, Automated exposure control for dose reduction was used. CONTRAST: 0 mL of Isovue 300. Study performed without Oral Contrast TECHNIQUE: Axial images were obtained from above the diaphragm to the pubic rami in the axial plane a t 5 mm thick sections. Reconstructed images are reviewed on the computer in the coronal plane. FINDINGS: Limited CT sections are obtained the lung bases. Minimal compressive atelectasis is in the posterior left base and along the right medial base. Coronary artery calcification is present CT ABDOMEN: Liver: Normal Spleen: Normal Pancreas: Normal Adrenal glands: The adrenal glands are normal. Gallbladder: Gallbladder is surgically absent. Kidneys: No masses are evident. No hydronephrosis is present. There is a 2.7 cm cyst measuring 7 Ho unsfield units on the anterior mid left kidney. Multiple nonobstructing renal stones are present thro ugh the left kidney. Larger calcifications including 2 mm calcification superior MID pole and a 3 mm calcification in the mid anterior left kidney. 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 Some faint calcification without obstruction is present within the inferior pole measuring 3 mm. F aint cyst may be present measuring 1.5 cm 14 Hounsfield units. Delayed images were obtained through t he kidneys, which remain unremarkable. Ureters are traced to the urinary bladder without evidence of ureteral stones. Multiple phleboliths are along the course. Aorta: Vascular calcification is within the aorta. Inferior vena cava: Normal. CT PELVIS: Loops of bowel within the abdomen and pelvis are normal. Study is performed without oral contrast limiting bowel evaluation Appendix: Not identified. Urinary bladder: Decompressed with limited evaluation Genitourinary structures: Uterus and ovaries are not identified. Osseous structures: No suspicious lytic or sclerotic lesions. Postsurgical changes are present within the lumbar spine. Old fractures of the symphysis pubis is present as well as ischio rami. IMPRESSIONS: 1. Nonobstructing renal stones. 2. Suspected renal cyst. 3. Postsurgical changes within the lumbar spine
[2018-08-12] MEDS ORDERED: HYDROmorphone 1 MG/ML 1 ML SYRINGE IVP PRN (19:55)
[2018-08-12 20:47] VITALS: BP 137/80; PULSE 69; RESP 20; TEMP 98.5
== END 2018-08-12 21:30 | disposition home or self-care (01) ==
LOC: EC 16:46
DX: R10.9 Unspecified abdominal pain (principal); R53.1 Weakness; R11.2 Nausea with vomiting, unspecified; J44.9 Chronic obstructive pulmonary disease, unspecified; G47.33 Obstructive sleep apnea (adult) (pediatric); Z99.89 Dependence on other enabling machines and devices; E11.9 Type 2 diabetes mellitus without complications; M79.7 Fibromyalgia; I10 Essential (primary) hypertension; M19.90 Unspecified osteoarthritis, unspecified site; Z86.718 Personal history of other venous thrombosis and embolism; Z86.14 Personal history of Methicillin resistant Staphylococcus aureus infection; Z79.4 Long term (current) use of insulin; Z79.899 Other long term (current) drug therapy; Z90.49 Acquired absence of other specified parts of digestive tract; Z88.1 Allergy status to other antibiotic agents; Z88.0 Allergy status to penicillin; Z88.2 Allergy status to sulfonamides; Z88.5 Allergy status to narcotic agent; Z88.8 Allergy status to other drugs, medicaments and biological substances; Z88.6 Allergy status to analgesic agent; Z89.421 Acquired absence of other right toe(s); E78.5 Hyperlipidemia, unspecified
CPT/HCPCS: 36415; 93005; 80053; 83605; 83735; 84100; 84484; 85025; 85610; 85730; 81003; 87040; 87086; 74176; 99285; 96374; 96375; 96376; 96361 ×4; J1720; J1170

== ENCOUNTER 2018-08-14 17:42 | Observation (INO) | payer MEDICARE, BC ==
[2018-08-14 18:54] LABS: Anisocytosis Slight; Basophils % (A) 0 %; Eosinophils # (A) 0.2 k/uL (0-0.7); Eosinophils % (A) 2 %; HCT 44.8 % (34.0-46.0); HGB 13.9 gm/dL (11.4-16.0); Hypochromasia Slight; Lymphocytes # (A) 1.7 k/uL (1.0-4.8); Lymphocytes % (A) 21 %; MCH 26.5 pg (25.0-35.0); MCV 85.7 fL (80.0-100.0); Mean Platelet Volume 6.6; Monocytes # (A) 0.4 k/uL (0-1.0); Monocytes % (A) 5 %; Neutrophils # (A) 5.5 k/uL (1.3-7.7); Neutrophils % (A) 69 %; Platelet Count 324 k/uL (150-450); Poikilocytosis Slight; RBC 5.23 m/uL (3.80-5.40); RDW 17.6 % (11.5-15.5); WBC 7.9 k/uL (3.8-10.6)
[2018-08-14 19:00] LABS: ALT 33 U/L (9-52); AST 30 U/L (14-36); Albumin 4.6 g/dL (3.5-5.0); Alkaline Phosphatase 87 U/L (38-126); Anion Gap 10 mmol/L; Blood Urea Nitrogen 12 mg/dL (7-17); Calcium 11.4 mg/dL (8.4-10.2); Carbon Dioxide 30 mmol/L (22-30); Chloride 102 mmol/L (98-107); Glucose 161 mg/dL (74-99); Potassium 4.3 mmol/L (3.5-5.1); Sodium 142 mmol/L (137-145); Total Bilirubin 1.5 mg/dL (0.2-1.3)
[2018-08-14] MEDS ORDERED: SODIUM CHLORIDE 0.9% 1,000 ML IV STA (19:11)
[2018-08-14] MEDS ORDERED: ONDANSETRON 4 MG/2 ML VIAL IVP STA (19:12)
[2018-08-14 19:13] LABS: INR 0.9 (<1.2); Partial Thromboplastin Time 20.9 sec (22.0-30.0); Prothrombin Time 9.5 sec (9.0-12.0)
[2018-08-14] MEDS: MORPHINE SULFATE 4 MG/ML SYRINGE IVP STA ×2 (19:41→19:44)
--- NOTE | 2018-08-14 19:46 | XR ---
EXAMINATION TYPE: XR chest 2V DATE OF EXAM: 08/14/2018 COMPARISON: July 29, 2018 HISTORY: Chest heaviness TECHNIQUE: Frontal and lateral views of the chest are obtained. FINDINGS: Heart is enlarged. There is coarsening of the interstitial markings. Thoracic aorta is ath eromatous. There are chest leads. Costophrenic angles are clear. Bones appear osteopenic. There is sl ight anterior wedging of several thoracic vertebra. IMPRESSION: No active cardiopulmonary disease. Cardiomegaly. No change compared to old exam. No hear t failure seen.
--- NOTE | 2018-08-14 20:14 | ED ---
Chest Pain HPI - General Chief Complaint: Chest Pain Stated Complaint: back pain, SOB, re-check Time Seen by Provider: 08/14/18 18:51 Source: patient, RN notes reviewed, old records reviewed Mode of arrival: wheelchair Limitations: no limitations - History of Present Illness Initial Comments: Patient is a 59-year-old female presents emergency room today with complaints of chest pain, lower back pain shortness of breath. Patient reports that she has had a chronic lower back pain. She is on pain medication at home without any relief. Patient states she was seen in the reports from 2 days ago for similar complaints. Was given IV pain medication. At this time Patient states that she also has been having some chest pain on exertion and worsening today as well as complaining of nausea. 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 She has history of diabetes, hypertension and hyperlipidemia. - Related Data Home Medications Medication Instructions Recorded Confirmed Atorvastatin Calcium [Lipitor] 20 mg PO HS 12/01/14 08/14/18 Cholecalciferol [Vitamin D3] 3,000 unit PO DAILY@0700 12/01/14 08/14/18 L.acidoph,Paracasei, B.lactis 2 cap PO BID 10/12/15 08/14/18 [Probiotic] Ondansetron [Zofran] 4 mg PO Q6H PRN 10/12/15 08/14/18 amLODIPine [Norvasc] 5 mg PO DAILY 11/17/15 08/14/18 Cranberry 300mg 300 mg PO BID 07/06/17 08/14/18 HYDROcodone/APAP 10-325MG [[place] 1 - 2 tab PO Q4-6H PRN MDD 6 TABS 07/06/17 10-325] Liquid Health Multiple 30 ml PO DAILY 07/06/17 08/14/18 Metoprolol Succinate (ER) [Toprol 50 mg PO HS 07/06/17 08/14/18 XL] Meclizine [Antivert] 25 mg PO QID PRN 11/26/17 08/14/18 Magnesium Oxide 400 mg PO QAM 02/26/18 08/14/18 Pantoprazole [Protonix] 40 mg PO BID 02/26/18 08/14/18 Thiamine [Vitamin B-1] 100 mg PO DAILY 02/26/18 08/14/18 Vitamin B Complex Drops 1 drop PO BID 02/26/18 08/14/18 Hydrocortisone [Cortef] 10 mg PO AC-LUNCH 05/18/18 08/14/18 Hydrocortisone [Cortef] 15 mg PO AC-KFST 05/18/18 08/14/18 Insulin Glargine,Hum.rec.anlog 36 units SQ HS@2200 05/18/18 08/14/18 [Lantus Solostar] Cyclobenzaprine [Flexeril] 10 mg PO TID PRN 06/26/18 08/14/18 Hydrocortisone [Cortef] 5 mg PO HS 06/26/18 08/14/18 Melatonin 5 mg PO HS PRN 06/26/18 08/14/18 Budesonide [Pulmicort Flexhaler] 1 puff INHALATION RT-BID PRN 08/12/18 08/14/18 Ferrous Sulfate [Feosol] 325 mg PO DAILY 08/12/18 08/14/18 Folic Acid 0.4 mg PO DAILY 08/12/18 08/14/18 Glucagon Emergency Kit 1 mg IM ONCE PRN 08/12/18 08/14/18 Lisinopril 20 mg PO AC-BRKFST 08/12/18 08/14/18 Potassium 99 mg PO DAILY 08/12/18 08/14/18 Promethazine HCl [Phenergan Syrup] 6.25 mg PO Q6H PRN 08/12/18 08/14/18 Previous Rx's Medication Instructions Recorded Aspirin 81 mg PO DAILY #0 07/02/18 Insulin Aspart [NovoLOG Flexpen] 18 units SQ AC-KFST #0 07/02/18 Insulin Aspart [NovoLOG Flexpen] 18 units SQ AC-LUNCH #0 07/02/18 Insulin Aspart [NovoLOG Flexpen] 20 unit SQ AC-SUPPER #0 07/02/18 Allergies Allergy/AdvReac Type Severity Reaction Status Date / Time butorphanol tartrate Allergy BLISTERS Verified 08/14/18 18:47 [From Stadol] IN MOUTH ceftriaxone [From Rocephin] Allergy Unknown Verified 08/14/18 18:47 clarithromycin [From Biaxin] Allergy Rash/Hives Verified 08/14/18 18:47 codeine Allergy Rash/Hives Verified 08/14/18 18:47 ergotamine tartrate Allergy Unknown Verified 08/14/18 18:47 [From Cafergot] erythromycin base Allergy RASH, GI Verified 08/14/18 18:47 [From E-Mycin] SYMPTOMS ketorolac tromethamine Allergy Rash/Hives Verified 08/14/18 18:47 [From Toradol] liraglutide [From Victoza] Allergy Rash/Hives Verified 08/14/18 18:47 monosodium glutamate [MSG] Allergy Nausea & Verified 08/14/18 18:47 Vomiting morphine Allergy Rash/Hives Verified 08/14/18 18:47 nalbuphine HCl [From Nubain] Allergy Nausea & Verified 08/14/18 18:47 Vomiting Penicillins Allergy Rash/Hives Verified 08/14/18 18:47 pentazocine lactate Allergy SEVERE Verified 08/14/18 18:47 [From Talwin] BLISTERS IN MOUTH pregabalin [From Lyrica] Allergy Rash/Hives Verified 08/14/18 18:47 propoxyphene HCl Allergy Rash/Hives Verified 08/14/18 18:47 [From Darvon] Sulfa (Sulfonamide Allergy Rash/Hives Verified 08/14/18 18:47 Antibiotics) tramadol Allergy Unknown Verified 08/14/18 18:47 Review of Systems ROS Statement: Those systems with pertinent positive or pertinent negative responses have been documented in the HPI. ROS Other: All systems not noted in ROS Statement are negative. EKG Findings - EKG Comments: EKG Findings:: EKG performed at 1816 show sinus rhythm and voltage criteria for LVH. Nonspecific ST and T wave abnormality. Abnormal EKG. Ventricular rate 70 bpm. [place] interval is 138 ms. QRS duration 82 ms. QT QTc 3:30/376 ms. 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 Past Anesthesia/Blood Transfusion Reactions: Motion Sickness Additional Past Anesthesia/Blood Transfusion Reaction / Comment(s): never recieved blood Past Psychological History: No Psychological Hx Reported Smoking Status: Never smoker Past Alcohol Use History: None Reported Past Drug Use History: None Reported - Past Family History Father Family Medical History: Coronary Artery Disease (CAD), CVA/TIA, Diabetes Mellitus, Myocardial Infarction (CT), Pneumonia Additional Family Medical History / Comment(s): ather at the age of [address] and pneumonia. Mother Family Medical History: Cancer Additional Family Medical History / Comment(s): Mother had uterine cancer. She is 96yrs old. General Exam - General Exam Comments Initial Comments: This patient's a 67-year-old female who presents to determine today for chief complaint of back pains and chest pain. Patient appears in no significant distress at this time. Limitations: no limitations General appearance: alert, in no apparent distress Head exam: Present: atraumatic, normocephalic, normal inspection Eye exam: Present: normal appearance, PERRL, EOMI. Absent: scleral icterus, conjunctival injection, periorbital swelling ENT exam: Present: normal exam, mucous membranes moist Neck exam: Present: normal inspection. Absent: tenderness, meningismus, lymphadenopathy Respiratory exam: Present: normal lung sounds bilaterally. Absent: respiratory distress, wheezes, rales, rhonchi, stridor Cardiovascular Exam: Present: regular rate, normal rhythm, normal heart sounds. Absent: systolic murmur, diastolic murmur, rubs, gallop, clicks GI/Abdominal exam: Present: soft, tenderness (Minimal epigastric tenderness.), normal bowel sounds. Absent: distended, guarding, rebound, rigid Extremities exam: Present: normal inspection, full ROM, normal capillary refill. Absent: tenderness, pedal edema, joint swelling, calf tenderness Back exam: Present: normal inspection, tenderness ( and lumbar spinal tenderness.) Neurological exam: Present: alert, oriented X3, CN II-XII intact Psychiatric exam: Present: normal affect, normal mood Skin exam: Present: warm, dry, intact, normal color. Absent: rash Course Vital Signs 08/14/18 08/14/18 08/14/18 18:03 19:03 19:42 Temperature 97.9 F Pulse Rate 88 75 Respiratory 18 18 18 Rate Blood Pressure 162/87 141/83 O2 Sat by Pulse 98 98 Oximetry Chest Pain MDM - MDM 59-year-old female presents today with complaints of lower back pain. Main symptoms which are concerning her chest pain shortness of breath on exertion. EKG does show some slight changes inferior lateral leads. Patient has had a normal troponin at this time. She is evaluated a few times within the past with the past month and has had normal troponin test. Patient was Main concern is chest pain today. At this time with comorbid is of hypertension diabetes and hyperlipidemia as well as a history of COPD will admit the Patient for repeat troponins. Consult to cardiology. She was given 1 dose of pain medication for chronic back pain. I discussed case with Dr. Herrera who agrees to accept the admission. Disposition Clinical Impression: Chest pain Disposition: ADMITTED IP TO THIS [facility] Condition: Stable Is patient prescribed a controlled substance at d/c from ED?: No Referrals: Allyson Guardado MD [Primary Care Provider] - 1-2 days Time of Disposition: 20:29
[2018-08-14] MEDS ORDERED: ASPIRIN 325 MG TAB PO STA (20:28)
[2018-08-14] MEDS ORDERED: NITROGLYCERIN SL TABS 0.4 MG TAB SUBLINGUAL PRN (20:30)
[2018-08-14] MEDS ORDERED: HYDROmorphone 1 MG/ML 1 ML SYRINGE IVP STA (20:43)
[2018-08-14 23:44] VITALS: RESP 18
[2018-08-14] MEDS ORDERED: HYDROCORTISONE 10 MG TAB PO SCH (23:45)
[2018-08-14] MEDS ORDERED: INSULIN DETEMIR (LEVEMIR) 100 UNIT/ML SYR SQ SCH (23:45)
[2018-08-14] MEDS ORDERED: MECLIZINE 25 MG TAB PO PRN (23:53)
[2018-08-14] MEDS ORDERED: FLUTICASONE 110 MCG INHALER INHALATION PRN (23:53)
[2018-08-14] MEDS ORDERED: CYCLOBENZAPRINE 10 MG TAB PO PRN (23:53)
[2018-08-14] MEDS ORDERED: MELATONIN 5 MG TABLET PO PRN (23:53)
[2018-08-15 00:29] LABS: Glucose,Whole Blood 247 mg/dL (75-99)
[2018-08-15] MEDS: HYDROcodone/APAP 10-325MG 1 EACH TAB PO PRN ×3 (00:30→15:02)
[2018-08-15] MEDS ORDERED: ATORVASTATIN 20 MG TAB PO SCH ×2 (00:38→21:00)
[2018-08-15] MEDS ORDERED: METOPROLOL SUCCINATE (ER) 50 MG TAB.ER.24H PO SCH ×2 (00:45→21:00)
--- NOTE | 2018-08-15 00:49 | P.HPIM ---
History of Present Illness H&P Date: 08/14/18 The patient is a 67-year-old female with a PMH of COPD, ELIZABET on CPAP, fibromyalgia, hypertension, diabetes mellitus, and recurrent UTIs presented to the ED due to sudden onset of left sided chest pain earlier today. She notes that the pain started suddenly, was pressure-like in nature, radiating to the left arm, 10 out of 10, lasting a few minutes, with associated nausea, dizziness , shortness of breath, and palpitations. The patient denied any alleviating or exacerbating factors. The patient further endorsed persistent chronic lower back pain, not adequately controlled with Diamond at home. She otherwise denied vomiting, diarrhea, visual disturbances, weakness, or numbness. In the emergency room, the patient underwent a comprehensive workup, with WBC count 7.9, hemoglobin 13.9, troponin less than 0.012, chest x-ray unremarkable, with EKG showing normal sinus rhythm at 78 bpm, and T-wave flattening diffusely. Review of Systems Pertinent positives and negatives as discussed in HPI, a complete review of systems was performed and all other systems are negative. 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,DVT R calf in 1976, cardiac murmur.occipital neuraligia, constipation History of Any Multi-Drug Resistant Organisms: MRSA Date of last positivie culture/infection: 2010 MDRO Source:: 4th rt toe Past Surgical History: Appendectomy, Back Surgery, Bladder Surgery, Breast Surgery, Cholecystectomy, Hysterectomy, Orthopedic Surgery, Tonsillectomy Additional Past Surgical History / Comment(s): Lumbar fusions, bladder suspension, occipital nerve blocks, 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 Past Anesthesia/Blood Transfusion Reactions: Motion Sickness Additional Past Anesthesia/Blood Transfusion Reaction / Comment(s): never recieved blood Smoking Status: Never smoker - Past Family History Father Family Medical History: Coronary Artery Disease (CAD), CVA/TIA, Diabetes Mellitus, Myocardial Infarction (CT), Pneumonia Additional Family Medical History / Comment(s): ather at the age of 78[address] and pneumonia. Mother Family Medical History: Cancer Additional Family Medical History / Comment(s): Mother had uterine cancer. She is 96yrs old. Medications and Allergies Home Medications Medication Instructions Recorded Confirmed Type Atorvastatin Calcium [Lipitor] 20 mg PO HS 12/01/14 08/14/18 History Cholecalciferol [Vitamin D3] 3,000 unit PO DAILY@0700 12/01/14 08/14/18 History L.acidoph,Paracasei, B.lactis 2 cap PO BID 10/12/15 08/14/18 History [Probiotic] Ondansetron [Zofran] 4 mg PO Q6H PRN 10/12/15 08/14/18 History amLODIPine [Norvasc] 5 mg PO DAILY 11/17/15 08/14/18 History Cranberry 300mg 300 mg PO BID 07/06/17 08/14/18 History HYDROcodone/APAP 10-325MG [[place] 1 - 2 tab PO Q4-6H PRN MDD 6 TABS 07/06/17 History 10-325] Liquid Health Multiple 30 ml PO DAILY 07/06/17 08/14/18 History Metoprolol Succinate (ER) [Toprol 50 mg PO HS 07/06/17 08/14/18 History XL] Meclizine [Antivert] 25 mg PO QID PRN 11/26/17 08/14/18 History Magnesium Oxide 400 mg PO QAM 02/26/18 08/14/18 History Pantoprazole [Protonix] 40 mg PO BID 02/26/18 08/14/18 History Thiamine [Vitamin B-1] 100 mg PO DAILY 02/26/18 08/14/18 History Vitamin B Complex Drops 1 drop PO BID 02/26/18 08/14/18 History Hydrocortisone [Cortef] 10 mg PO AC-LUNCH 05/18/18 08/14/18 History Hydrocortisone [Cortef] 15 mg PO AC-BRKFST 05/18/18 08/14/18 History Insulin Glargine,Hum.rec.anlog 36 units SQ HS@2200 05/18/18 08/14/18 History [Lantus Solostar] Cyclobenzaprine [Flexeril] 10 mg PO TID PRN 06/26/18 08/14/18 History Hydrocortisone [Cortef] 5 mg PO HS 06/26/18 08/14/18 History Melatonin 5 mg PO HS PRN 06/26/18 08/14/18 History Aspirin 81 mg PO DAILY #0 07/02/18 08/14/18 Rx Insulin Aspart [NovoLOG Flexpen] 18 units SQ AC-BRKFST #0 07/02/18 08/14/18 Rx Insulin Aspart [NovoLOG Flexpen] 18 units SQ AC-LUNCH #0 07/02/18 08/14/18 Rx Insulin Aspart [NovoLOG Flexpen] 20 unit SQ AC-SUPPER #0 07/02/18 08/14/18 Rx Budesonide [Pulmicort Flexhaler] 1 puff INHALATION RT-BID PRN 08/12/18 08/14/18 History Ferrous Sulfate [Feosol] 325 mg PO DAILY 08/12/18 08/14/18 History Folic Acid 0.4 mg PO DAILY 08/12/18 08/14/18 History Glucagon Emergency Kit 1 mg IM ONCE PRN 08/12/18 08/14/18 History Lisinopril 20 mg PO AC-BRKFST 08/12/18 08/14/18 History Potassium 99 mg PO DAILY 08/12/18 08/14/18 History Promethazine HCl [Phenergan Syrup] 6.25 mg PO Q6H PRN 08/12/18 08/14/18 History Allergies Allergy/AdvReac Type Severity Reaction Status Date / Time butorphanol tartrate Allergy BLISTERS Verified 08/14/18 23:13 [From Stadol] IN MOUTH ceftriaxone [From Rocephin] Allergy Unknown Verified 08/14/18 23:13 clarithromycin [From Biaxin] Allergy Rash/Hives Verified 08/14/18 23:13 codeine Allergy Rash/Hives Verified 08/14/18 23:13 ergotamine tartrate Allergy Unknown Verified 08/14/18 23:13 [From Cafergot] erythromycin base Allergy RASH, GI Verified 08/14/18 23:13 [From E-Mycin] SYMPTOMS ketorolac tromethamine Allergy Rash/Hives Verified 08/14/18 23:13 [From Toradol] liraglutide [From Victoza] Allergy Rash/Hives Verified 08/14/18 23:13 monosodium glutamate [MSG] Allergy Nausea & Verified 08/14/18 23:13 Vomiting morphine Allergy Rash/Hives Verified 08/14/18 23:13 nalbuphine HCl [From Nubain] Allergy Nausea & Verified 08/14/18 23:13 Vomiting Penicillins Allergy Rash/Hives Verified 08/14/18 23:13 pentazocine lactate Allergy SEVERE Verified 08/14/18 23:13 [From Talwin] BLISTERS IN MOUTH pregabalin [From Lyrica] Allergy Rash/Hives Verified 08/14/18 23:13 propoxyphene HCl Allergy Rash/Hives Verified 08/14/18 23:13 [From Darvon] Sulfa (Sulfonamide Allergy Rash/Hives Verified 08/14/18 23:13 Antibiotics) tramadol Allergy Unknown Verified 08/14/18 23:13 Physical Exam Vitals: Vital Signs Temp Pulse Pulse Resp BP BP Pulse Ox 08/14/18 21:17 97.8 F 69 18 176/82 98 08/14/18 20:58 98.2 F 82 18 146/76 97 08/14/18 19:42 75 18 141/83 98 08/14/18 19:03 18 08/14/18 18:03 97.9 F 88 18 162/87 98 Intake and Output 08/14/18 08/14/18 08/15/18 14:59 22:59 06:59 Other: # Voids 1 Weight 70.307 kg General: non toxic, no distress, appears at stated age, obese Derm: no unusual rashes/lesions no unusual ecchymoses, warm, dry Head: atraumatic, normocephalic, symmetric Eyes: EOMI, no lid lag, anicteric sclera, pupils equal round reactive to light ENT: Nose and ears atraumatic, no thrush, no pharyngeal erythema Neck: No thyromegaly, no cervical lymphadenopathy, trachea midline, supple Mouth: no lip lesion, mucus membranes moist Cardiovascular: S1S2 reg, no murmur, chest pain reproducible upon palpation, positive posterior tibial pulse bilateral, no edema, capillary refill less than 2 seconds Lungs: CTA bilateral, no rhonchi, no rales , no accessory muscle use Abdominal: soft, nontender to palpation, no guarding, no appreciable organomegaly, normal bowel sounds Ext: no gross muscle atrophy, muscle strength 5 out of 5 in all 4 extremities grossly, no contractures, lumbar spinal and paraspinal mild tenderness palpation Neuro: CN II-XI grossly intact, light touch intact all 4 extremities, finger to nose within normal limits, Psych: Alert, oriented, appropriate affect Results CBC & Chem 7: 08/14/18 18:24 08/14/18 18:24 Labs: Abnormal Lab Results - Last 24 Hours (Table) 08/14/18 08/14/18 08/14/18 Range/Units 18:24 18:24 18:24 RDW 17.6 H (11.5-15.5) % APTT 20.9 L (22.0-30.0) sec Glucose 161 H (74-99) mg/dL Calcium 11.4 H (8.4-10.2) mg/dL Total Bilirubin 1.5 H (0.2-1.3) mg/dL Assessment and Plan Plan: Chest pain, rule out ACS -Trend troponin -Cardiac monitoring -Cardiology consult -Continue with aspirin, Lipitor Chronic conditions: COPD, fibromyalgia, diabetes mellitus, hypertension -Continue with Symbicort -Continue with Levemir and aspart insulins with blood glucose monitoring -Resume home antihypertensives -Continue with pain control with Diamond and low-dose Dilaudid when necessary DVT//GI prophylaxis -Heparin -Protonix The patient is admitted with an anticipated less than 2 midnight stay for evaluation of chest pain. CODE STATUS:Full-Code Discussed with: Patient Anticipated discharge date: 08/15/[address]: Home A total of 60 minutes was spent on the care of this complex patient more than 50 % of the time was spent in counseling and care coordination.
[2018-08-15 00:59] LABS: Appearance,Urine Clear (Clear); Bilirubin,Urine Negative (Negative); Blood,Urine Negative (Negative); Color,Urine Yellow; Glucose,Urine (UA) Negative (Negative); Hyaline Casts,Urine 3 /lpf (0-2); Ketones,Urine Negative (Negative); Leukocyte Esterase,Urine Moderate (Negative); Mucus,Urine Rare /hpf; Nitrite,Urine Negative (Negative); Protein,Urine Negative (Negative); RBC,Urine 2 /hpf (0-5); Specific Gravity,Urine 1.019 (1.001-1.035); Squamous Epithelial Cell,Urine <1 /hpf (0-4); Urobilinogen,Urine <2.0 mg/dL (<2.0); WBC,Urine 13 /hpf (0-5)
[2018-08-15] MEDS: HYDROmorphone 0.5 MG/0.5 ML SYRINGE IVP PRN ×2 (03:40→09:35)
[2018-08-15 06:39] LABS: Glucose,Whole Blood 173 mg/dL (75-99)
[2018-08-15] MEDS ORDERED: HYDROCORTISONE 10 MG TAB PO SCH (07:30)
[2018-08-15] MEDS ORDERED: LISINOPRIL 20 MG TAB PO SCH (07:30)
[2018-08-15] MEDS ORDERED: PANTOPRAZOLE 40 MG TABLET PO SCH (07:30)
[2018-08-15] MEDS ORDERED: HEPARIN SODIUM,PORCINE 5,000 UNIT/ML 1 ML VIAL SQ SCH (08:00)
[2018-08-15 08:04] LABS: Cholesterol 130 mg/dL (<200); HDL Cholesterol 41 mg/dL (40-60); LDL Cholesterol,Calculated 55 mg/dL (0-99); Triglycerides 170 mg/dL (<150)
[2018-08-15] MEDS ORDERED: REGADENOSON 0.4 MG/5 ML SYRINGE IV ONE (08:54)
[2018-08-15] MEDS ORDERED: CAFFEINE CITRATE 60 MG/3 ML VIAL IV PRN (08:54)
[2018-08-15] MEDS ORDERED: NON-FORMULARY DRUG (Folic Acid [Folic Acid] 0.4 MG) PO SCH (09:00)
[2018-08-15] MEDS ORDERED: FERROUS SULFATE 325 MG TAB PO SCH (09:00)
[2018-08-15] MEDS ORDERED: ASPIRIN 325 MG TAB PO SCH (09:00)
[2018-08-15] MEDS ORDERED: amLODIPine 5 MG TAB PO SCH (09:00)
[2018-08-15] MEDS ORDERED: ASPIRIN 81 MG PO SCH (09:00)
--- NOTE | 2018-08-15 10:58 | P.CRDCN ---
History of Present Illness History of present illness: This is a pleasant 67-year-old female past medical history significant for hypertension, dyslipidemia, diabetes mellitus, chronic back pain , obstructive sleep apnea and adrenal insufficiency. We have been asked to see her in consultation for symptoms of chest pain. She states approximately 3 weeks ago she suffered a slip and fall on some steps and injured her lower back. Since that time she has been suffering from increased shortness of breath with exertion. She denies PND or orthopnea. She states that at baseline she does have some minimal shortness of breath from time to time but this seems to have intensified. She states she has been told in the past that she has COPD. Then yesterday she started having a heavy sharp pain sensation in the left precordial region that radiated at times into the left shoulder. She denies associated dizziness, nausea, vomiting or palpitations initially. This pain persisted for approximately 45 minutes and then she started to feel mildly nauseated. Upon arrival to the emergency department she was given Zofran and IV pain medication which did relieve her chest discomfort. She is seen and examined laying flat in bed in no acute distress. She currently denies chest pain however continues to have pain in the lower back. 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 Review of the records reveals that she underwent a Lexiscan stress test in 2011 which was negative for reversible cardiac ischemia. EKG reveals sinus mechanism with T-wave inversions noted in the precordial lateral leads. When compared to previous EKG this is not an acute finding. Chest x-ray is negative for an acute cardiopulmonary process. Laboratory data reviewed, WBC 7.9, hemoglobin 13.9, platelets 324, sodium 142, potassium 4.3, creatinine 0.68, cardiac enzymes negative 3, LDL 55 and HDL 41. Current cardiac medications include aspirin 81 mg daily, atorvastatin 20 mg daily, lisinopril 20 mg daily, Toprol 50 mg daily and amlodipine 5 mg daily. Most recent echocardiogram obtained November 2017 reveals preserved left ventricular systolic function with ejection fraction 55-60%, moderately dilated left atrium, mild mitral regurgitation and mild tricuspid regurgitation. At the time of my exam: CONSTITUTIONAL: Denies fever. Denies chills. EYES: Denies blurred vision. Denies vision changes. Denies eye pain. EARS, NOSE, MOUTH & THROAT: Denies headache. Denies sore throat. Denies ear pain. CARDIOVASCULAR: Denies chest pain. Denies shortness of breath. Denies orthopnea. Denies PND. Denies palpitations. RESPIRATORY: Denies cough. GASTROINTESTINAL: Denies abdominal pain. Denies diarrhea. Denies constipation. Denies nausea. Denies vomiting. MUSCULOSKELETAL: Complains of pain to the lower back. INTEGUMENTARY: Denies pruitis. Denies rash. NEUROLOGIC: Denies numbness. Denies tingling. Denies weakness. PSYCHIATRIC: Denies anxiety. Denies depression. ENDOCRINE: Denies fatigue. Denies weight change. Denies polydipsia. Denies polyurina. GENITOURINARY: Denies burning, hematuria or urgency with micturation. HEMATOLOGIC: Denies history of anemia. Denies bleeding. Blood pressure 113/70 heart rate 57 afebrile maintaining oxygen saturation on nasal cannula GENERAL: This is a 67-year-old female in no apparent distress at the time of my examination. Obese. HEENT: Head is atraumatic, normocephalic. Pupils are equal, round. Sclerae anicteric. Conjunctivae are clear. Mucous membranes of the mouth are moist. Neck is supple. There is no jugular venous distention. No carotid bruit is heard. LUNGS: Clear to auscultation no wheezes, rales or rhonchi. No chest wall tenderness is noted on palpation or with deep breathing. HEART: Regular rate and rhythm without murmurs, rubs or gallops. S1 and S2 heard. ABDOMEN: Soft, nontender. Bowel sounds are heard. No organomegaly noted. EXTREMITIES: No evidence of peripheral edema and no calf tenderness noted. VASCULAR: Radial and dorsalis pedis pulses palpated, no evidence of clubbing. NEUROLOGIC: Patient is awake, alert and oriented x3. ASSESSMENT Precordial chest pain with baseline EKG abnormalities. An acute coronary event has been ruled out. Hypertension Dyslipidemia Diabetes mellitus Obstructive sleep apena Recent fall and lumbar back pain PLAN An acute coronary event has been ruled out. However, given her risk factors, abnormal EKG and evidence of ateromatous thoracic aorta there is strong possibility she has underlying coronary artery disease. Obtain 2D echocardiogram and doppler study to assess cardiac structure and function. Perform Lexiscan stress test to assess for reversible cardiac ischemia. Further recommendations to follow based on clinical course. Thank you kindly for this consultation. Nurse Practitioner note has been reviewed, I agree with a documented findings and plan of care. Patient was seen and examined. 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,DVT R calf in 1976, cardiac murmur.occipital neuraligia, constipation History of Any Multi-Drug Resistant Organisms: MRSA Date of last positivie culture/infection: 2010 MDRO Source:: 4th rt toe Past Surgical History: Appendectomy, Back Surgery, Bladder Surgery, Breast Surgery, Cholecystectomy, Hysterectomy, Orthopedic Surgery, Tonsillectomy Additional Past Surgical History / Comment(s): Lumbar fusions, bladder suspension, occipital nerve blocks, 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 Past Anesthesia/Blood Transfusion Reactions: Motion Sickness Additional Past Anesthesia/Blood Transfusion Reaction / Comment(s): never recieved blood Smoking Status: Never smoker - Past Family History Father Family Medical History: Coronary Artery Disease (CAD), CVA/TIA, Diabetes Mellitus, Myocardial Infarction (SC), Pneumonia Additional Family Medical History / Comment(s): ather at the age of 78yrs from SC and pneumonia. Mother Family Medical History: Cancer Additional Family Medical History / Comment(s): Mother had uterine cancer. She is 96yrs old. Medications and Allergies Home Medications Medication Instructions Recorded Confirmed Type Atorvastatin Calcium [Lipitor] 20 mg PO HS 12/01/14 08/14/18 History Cholecalciferol [Vitamin D3] 3,000 unit PO DAILY@0700 12/01/14 08/14/18 History L.acidoph,Paracasei, B.lactis 2 cap PO BID 10/12/15 08/14/18 History [Probiotic] Ondansetron [Zofran] 4 mg PO Q6H PRN 10/12/15 08/14/18 History amLODIPine [Norvasc] 5 mg PO DAILY 11/17/15 08/14/18 History Cranberry 300mg 300 mg PO BID 07/06/17 08/14/18 History HYDROcodone/APAP 10-325MG [[facility] - 2 tab PO Q4-6H PRN MDD 6 TABS 07/06/17 History 10-325] Liquid Health Multiple 30 ml PO DAILY 07/06/17 08/14/18 History Metoprolol Succinate (ER) [Toprol 50 mg PO HS 07/06/17 08/14/18 History XL] Meclizine [Antivert] 25 mg PO QID PRN 11/26/17 08/14/18 History Magnesium Oxide 400 mg PO QAM 02/26/18 08/14/18 History Pantoprazole [Protonix] 40 mg PO BID 02/26/18 08/14/18 History Thiamine [Vitamin B-1] 100 mg PO DAILY 02/26/18 08/14/18 History Vitamin B Complex Drops 1 drop PO BID 02/26/18 08/14/18 History Hydrocortisone [Cortef] 10 mg PO AC-LUNCH 05/18/18 08/14/18 History Hydrocortisone [Cortef] 15 mg PO AC-BRKFST 05/18/18 08/14/18 History Insulin Glargine,Hum.rec.anlog 36 units SQ HS@2200 05/18/18 08/14/18 History [Lantus Solostar] Cyclobenzaprine [Flexeril] 10 mg PO TID PRN 06/26/18 08/14/18 History Hydrocortisone [Cortef] 5 mg PO HS 06/26/18 08/14/18 History Melatonin 5 mg PO HS PRN 06/26/18 08/14/18 History Aspirin 81 mg PO DAILY #0 07/02/18 08/14/18 Rx Insulin Aspart [NovoLOG Flexpen] 18 units SQ AC-BRKFST #0 07/02/18 08/14/18 Rx Insulin Aspart [NovoLOG Flexpen] 18 units SQ AC-LUNCH #0 07/02/18 08/14/18 Rx Insulin Aspart [NovoLOG Flexpen] 20 unit SQ AC-SUPPER #0 07/02/18 08/14/18 Rx Budesonide [Pulmicort Flexhaler] 1 puff INHALATION RT-BID PRN 08/12/18 08/14/18 History Ferrous Sulfate [Feosol] 325 mg PO DAILY 08/12/18 08/14/18 History Folic Acid 0.4 mg PO DAILY 08/12/18 08/14/18 History Glucagon Emergency Kit 1 mg IM ONCE PRN 08/12/18 08/14/18 History Lisinopril 20 mg PO AC-BRKFST 08/12/18 08/14/18 History Potassium 99 mg PO DAILY 08/12/18 08/14/18 History Promethazine HCl [Phenergan Syrup] 6.25 mg PO Q6H PRN 08/12/18 08/14/18 History Allergies Allergy/AdvReac Type Severity Reaction Status Date / Time butorphanol tartrate Allergy BLISTERS Verified 08/14/18 23:13 [From Stadol] IN MOUTH ceftriaxone [From Rocephin] Allergy Unknown Verified 08/14/18 23:13 clarithromycin [From Biaxin] Allergy Rash/Hives Verified 08/14/18 23:13 codeine Allergy Rash/Hives Verified 08/14/18 23:13 ergotamine tartrate Allergy Unknown Verified 08/14/18 23:13 [From Cafergot] erythromycin base Allergy RASH, GI Verified 08/14/18 23:13 [From E-Mycin] SYMPTOMS ketorolac tromethamine Allergy Rash/Hives Verified 08/14/18 23:13 [From Toradol] liraglutide [From Victoza] Allergy Rash/Hives Verified 08/14/18 23:13 monosodium glutamate [MSG] Allergy Nausea & Verified 08/14/18 23:13 Vomiting morphine Allergy Rash/Hives Verified 08/14/18 23:13 nalbuphine HCl [From Nubain] Allergy Nausea & Verified 08/14/18 23:13 Vomiting Penicillins Allergy Rash/Hives Verified 08/14/18 23:13 pentazocine lactate Allergy SEVERE Verified 08/14/18 23:13 [From Talwin] BLISTERS IN MOUTH pregabalin [From Lyrica] Allergy Rash/Hives Verified 08/14/18 23:13 propoxyphene HCl Allergy Rash/Hives Verified 08/14/18 23:13 [From Darvon] Sulfa (Sulfonamide Allergy Rash/Hives Verified 08/14/18 23:13 Antibiotics) tramadol Allergy Unknown Verified 08/14/18 23:13 Physical Exam Vitals: Vital Signs Temp Pulse Pulse Resp BP BP Pulse Ox 08/15/18 07:10 98.3 F 57 L 18 113/70 96 08/15/18 04:45 98.2 F 70 18 108/65 97 08/15/18 02:59 70 18 08/14/18 23:43 97.8 F 89 18 110/67 94 L 08/14/18 23:30 69 17 08/14/18 21:17 97.8 F 69 18 176/82 98 08/14/18 20:58 98.2 F 82 18 146/76 97 08/14/18 19:42 75 18 141/83 98 08/14/18 19:03 18 08/14/18 18:03 97.9 F 88 18 162/87 98 Intake and Output 08/14/18 08/15/18 08/15/18 22:59 06:59 14:59 Other: Voiding Method Toilet # Voids 1 1 Weight 70.307 kg Results 08/14/18 18:24 08/14/18 18:24 Cardiac Enzymes 08/14/18 08/14/18 08/14/18 Range/Units 18:24 18:24 23:58 AST 30 (14-36) U/L Troponin I <0.012 <0.012 (0.000-0.034) ng/mL 08/15/18 Range/Units 06:44 AST (14-36) U/L Troponin I <0.012 (0.000-0.034) ng/mL Coagulation 08/14/18 Range/Units 18:24 PT 9.5 (9.0-12.0) sec APTT 20.9 L (22.0-30.0) sec Lipids 08/15/18 Range/Units 06:44 Triglycerides 170 H (<150) mg/dL Cholesterol 130 (<200) mg/dL HDL Cholesterol 41 (40-60) mg/dL CBC 08/14/18 Range/Units 18:24 WBC 7.9 (3.8-10.6) k/uL RBC 5.23 (3.80-5.40) m/uL Hgb 13.9 (11.4-16.0) gm/dL Hct 44.8 (34.0-46.0) % Plt Count 324 (150-450) k/uL Comprehensive Metabolic Panel 08/14/18 Range/Units 18:24 Sodium 142 (137-145) mmol/L Potassium 4.3 (3.5-5.1) mmol/L Chloride 102 (98-107) mmol/L Carbon Dioxide 30 (22-30) mmol/L BUN 12 (7-17) mg/dL Creatinine 0.68 (0.52-1.04) mg/dL Glucose 161 H (74-99) mg/dL Calcium 11.4 H (8.4-10.2) mg/dL AST 30 (14-36) U/L ALT 33 (9-52) U/L Alkaline Phosphatase 87 (38-126) U/L Total Protein 7.0 (6.3-8.2) g/dL Albumin 4.6 (3.5-5.0) g/dL Current Medications Generic Name Dose Route Start Last Admin Trade Name Freq PRN Reason Stop Dose Admin Hydrocodone Bitart/Acetaminophen 1 each 08/14/18 23:53 08/15/18 00:30 [facility] PO 1 each Q6H PRN Administration Pain Amlodipine Besylate 5 mg 08/15/18 09:00 Norvasc PO DAILY [facility] Aspirin 325 mg 08/15/18 09:00 Aspirin PO DAILY [facility] Aspirin 81 mg 08/15/18 09:00 Aspirin PO DAILY [facility] Atorvastatin Calcium 20 mg 08/15/18 00:38 08/15/18 00:49 Lipitor PO 20 mg HS KIARA Administration Cyclobenzaprine HCl 10 mg 08/14/18 23:53 Flexeril PO TID PRN Muscle Spasm Ferrous Sulfate 325 mg 08/15/18 09:00 Feosol PO DAILY [facility] Fluticasone Propionate 1 puff 08/14/18 23:53 Flovent 110 Mcg Inhaler INHALATION RT-BID PRN Shortness Of Breath Heparin Sodium (Porcine) 5,000 unit 08/15/18 08:00 Heparin SQ Q8HR [facility] Hydrocortisone 10 mg 08/15/18 12:30 Cortef PO AC-LUNCH KIARA Hydrocortisone 5 mg 08/14/18 23:45 08/15/18 00:31 Cortef PO 5 mg HS KIARA Administration Hydrocortisone 15 mg 08/15/18 07:30 Cortef PO AC-BRKFST [facility] Hydromorphone HCl 0.5 mg 08/14/18 23:57 08/15/18 03:40 Dilaudid IVP 0.5 mg Q6HR PRN Administration Pain Insulin Aspart 10 unit 08/15/18 07:30 Novolog SQ AC-TID [facility] Insulin Detemir 25 unit 08/14/18 23:45 08/15/18 00:48 Levemir SQ 25 unit HS [facility] Administration Lisinopril 20 mg 08/15/18 07:30 Zestril PO AC-BRKFST [facility] Meclizine HCl 25 mg 08/14/18 23:53 Antivert PO QID PRN Vertigo Melatonin 5 mg 08/14/18 23:53 Melatonin PO HS PRN Insomnia Metoprolol Succinate 50 mg 08/15/18 00:45 08/15/18 00:48 Toprol Xl PO 50 mg HS [facility] Administration Nitroglycerin 0.4 mg 08/14/18 20:30 Nitrostat SUBLINGUAL Q5M PRN Chest Pain Pantoprazole Sodium 40 mg 08/15/18 07:30 Protonix PO BID-W/MEALS [facility] Intake and Output 08/14/18 08/15/18 08/15/18 22:59 06:59 14:59 Other: Voiding Method Toilet # Voids 1 1 Weight 70.307 kg 08/14/18 18:24 08/14/18 18:24
[2018-08-15] MEDS: INSULIN ASPART (NovoLOG) 100 UNIT/ML VIAL SQ SCH ×2 (11:29→12:31)
[2018-08-15 12:23] LABS: Glucose,Whole Blood 108 mg/dL (75-99)
[2018-08-15] MEDS ORDERED: HYDROCORTISONE 20 MG TAB PO SCH (12:30)
--- NOTE | 2018-08-15 12:45 | NM ---
EXAMINATION TYPE: NM stress lexiscan cardiolite DATE OF EXAM: 08/15/2018 COMPARISON: NONE HISTORY: Chest pain TECHNIQUE: After the intravenous administration of 10.48 mCi Tc 99m Sestamibi - Cardiolite resting S PECT images acquired 45 minutes post injection. The patient received 0.4mg Lexiscan, 25.0 mCi Tc 99m Sestamibi - Stress images obtained [address] injection FINDINGS: No fixed or reversible perfusion defects are evident. Gated wall motion is normal. Calculated ejectio n fraction is 58%. There is some dyskinesia of the distal inferior wall near the apex. Remaining portions have normal wa ll motion. IMPRESSION: 1. Dyskinesia of the distal inferior wall near the apex. 2. No stress-induced ischemic changes evident. 3. Normal ejection fraction of 58%.
[2018-08-15 12:47] VITALS: BP 137/68; PULSE 64; TEMP 98.1
[2018-08-15] MEDS ORDERED: IPRATROPIUM-ALBUTEROL 3 ML NEB INHALATION PRN (13:13)
--- NOTE | 2018-08-15 13:14 | P.DS ---
Providers Date of admission: 08/14/18 20:29 Expected date of discharge: 08/15/18 Attending physician: Christ Corea MD Consults: 08/14/18 20:30 Consult Physician Urgent Consulting Provider: Warren Rosenberg Consult Reason/Comments: Chest pain Do you want consulting provider notified?: Yes, Notify in am Primary care physician: Allyson Guardado MD Hospital Course: 67-year-old female with a PMH of COPD, ELIZABET on CPAP, fibromyalgia, hypertension, diabetes mellitus, and recurrent UTIs presented to the ED due to sudden onset of left sided chest pain earlier today. She notes that the pain started suddenly, was pressure-like in nature, radiating to the left arm, 10 out of 10, lasting a few minutes, with associated nausea, dizziness, shortness of breath, and palpitations. The patient denied any alleviating or exacerbating factors. The patient further endorsed persistent chronic lower back pain, not adequately controlled with [place] at home. She otherwise denied vomiting, diarrhea, visual disturbances, weakness, or numbness. In the emergency room, the patient underwent a comprehensive workup, with WBC count 7.9, hemoglobin 13.9, troponin less than 0.012, chest x-ray unremarkable, with EKG showing normal sinus rhythm at 78 bpm, and T-wave flattening diffusely. Regarding her chest pain, plan was to rule out acute coronary syndrome. Troponin was less than 0.0122, EKG showing normal sinus rhythm, ACS ruled out. Chest x-ray was negative for acute process. Cardiology was consulted and recommended stress test. Lipid panel showed elevated triglyceride at 170. Patient was seen and examined prior to discharge. No acute events overnight. Patient reports her chest pain is completely resolved. Complains of complete exhaustion due to undergoing multiple tests this morning. States that she cannot go home due to the fact that she lives in [place] and does not have a ride. General: [no distress], [appears at stated age] Derm: [warm], [dry] Head: [atraumatic], [normocephalic], [symmetric] Eyes: [EOMI], [no lid lag], [anicteric sclera] Mouth: [no lip lesion], [mucus membranes moist] Cardiovascular: [S1S2 reg], [no murmur], [positive posterior tibial pulse bilateral], Lungs: [CTA bilateral], [no rhonchi, no rales] , [no accessory muscle use] Abdominal: [soft], [ nontender to palpation], [no guarding], [no appreciable organomegaly] Ext: [no gross muscle atrophy], [no edema], [no contractures] Neuro: [ CN II-XI grossly intact], [no focal neuro deficits] Psych: [Alert], [oriented], [appropriate affect] Assessment and Plan 1. Chest pain 2. Hypertension 3. Chronic lower back pain 4. Diabetes mellitus 5. COPD 1. ACS has been ruled out. Will follow stress test and echocardiogram results. Follow d-dimer though very low concern for PE. Aspirin and statin for ASCVD risk. Follow cardiology consult. 2. BP is 137/68. Continue amlodipine, lisinopril, metoprolol. Monitor vitals , adjust medications as necessary. 3. Pain control with Flexeril as needed. Continue [place] as needed. Continue Dilaudid as needed for severe pain. 4. Aevjt-sm-vamw glucose 108. Continue Levemir 25 units at bedtime. Continue NovoLog 10 units 3 times a day with meals. Insulin sliding scale. At closing precautions. Regular Accu-Cheks. Diabetic diet. 5. DuoNeb as needed for shortness of breath or wheezing. Oxygen per nasal cannula to maintain oxygen saturation greater than 92%. Possible discharge depending on ability for patient at home and the results of stress test. Cardiology is on consult. Pertinent Studies: Stress test, chest x-ray, echocardiogram Patient Condition at Discharge: Stable Plan - Discharge Summary Discharge Rx Participant: Yes New Discharge Prescriptions: No Action Atorvastatin Calcium [Lipitor] 20 mg PO HS Cholecalciferol [Vitamin D3] 3,000 unit PO DAILY@0700 Ondansetron [Zofran] 4 mg PO Q6H PRN PRN Reason: Nausea And Vomiting L.acidoph,Paracasei, B.lactis [Probiotic] 2 cap PO BID amLODIPine [Norvasc] 5 mg PO DAILY Liquid Health Multiple 30 ml PO DAILY Cranberry 300mg 300 mg PO BID HYDROcodone/APAP 10-325MG [[place] 10-325] 1 - 2 tab PO Q4-6H PRN MDD 6 TABS PRN Reason: Pain Metoprolol Succinate (ER) [Toprol XL] 50 mg PO HS Meclizine [Antivert] 25 mg PO QID PRN PRN Reason: Vertigo Thiamine [Vitamin B-1] 100 mg PO DAILY Magnesium Oxide 400 mg PO QAM Vitamin B Complex Drops 1 drop PO BID Pantoprazole [Protonix] 40 mg PO BID Hydrocortisone [Cortef] 10 mg PO AC-LUNCH Insulin Glargine,Hum.rec.anlog [Lantus Solostar] 36 units SQ HS@2200 Hydrocortisone [Cortef] 15 mg PO AC-BRKFST Cyclobenzaprine [Flexeril] 10 mg PO TID PRN PRN Reason: Muscle Spasm Melatonin 5 mg PO HS PRN PRN Reason: Insomnia Hydrocortisone [Cortef] 5 mg PO HS Aspirin 81 mg PO DAILY #0 Insulin Aspart [NovoLOG Flexpen] 18 units SQ AC-BRKFST #0 Insulin Aspart [NovoLOG Flexpen] 18 units SQ AC-LUNCH #0 Insulin Aspart [NovoLOG Flexpen] 20 unit SQ AC-SUPPER #0 Ferrous Sulfate [Feosol] 325 mg PO DAILY Folic Acid 0.4 mg PO DAILY Promethazine HCl [Phenergan Syrup] 6.25 mg PO Q6H PRN PRN Reason: Nausea Budesonide [Pulmicort Flexhaler] 1 puff INHALATION RT-BID PRN PRN Reason: Shortness Of Breath Glucagon Emergency Kit 1 mg IM ONCE PRN PRN Reason: Hypoglycemia Lisinopril 20 mg PO AC-BRKFST Potassium 99 mg PO DAILY Discharge Medication List Atorvastatin Calcium [Lipitor] 20 mg PO HS 12/01/14 [History] Cholecalciferol [Vitamin D3] 3,000 unit PO DAILY@0700 12/01/14 [History] L.acidoph,Paracasei, B.lactis [Probiotic] 2 cap PO BID 10/12/15 [History] Ondansetron [Zofran] 4 mg PO Q6H PRN 10/12/15 [History] amLODIPine [Norvasc] 5 mg PO DAILY 11/17/15 [History] Cranberry 300mg 300 mg PO BID 07/06/17 [History] HYDROcodone/APAP 10-325MG [[place] 10-325] 1 - 2 tab PO Q4-6H PRN MDD 6 TABS 07/06 [History] Liquid Health Multiple 30 ml PO DAILY 07/06/17 [History] Metoprolol Succinate (ER) [Toprol XL] 50 mg PO HS 07/06/17 [History] Meclizine [Antivert] 25 mg PO QID PRN 11/26/17 [History] Magnesium Oxide 400 mg PO QAM 02/26/18 [History] Pantoprazole [Protonix] 40 mg PO BID 02/26/18 [History] Thiamine [Vitamin B-1] 100 mg PO DAILY 02/26/18 [History] Vitamin B Complex Drops 1 drop PO BID 02/26/18 [History] Hydrocortisone [Cortef] 10 mg PO AC-LUNCH 05/18/18 [History] Hydrocortisone [Cortef] 15 mg PO AC-BRKFST 05/18/18 [History] Insulin Glargine,Hum.rec.anlog [Lantus Solostar] 36 units SQ HS@2200 05/18/18 [ History] Cyclobenzaprine [Flexeril] 10 mg PO TID PRN 06/26/18 [History] Hydrocortisone [Cortef] 5 mg PO HS 06/26/18 [History] Melatonin 5 mg PO HS PRN 06/26/18 [History] Aspirin 81 mg PO DAILY #0 07/02/18 [Rx] Insulin Aspart [NovoLOG Flexpen] 18 units SQ AC-BRKFST #0 07/02/18 [Rx] Insulin Aspart [NovoLOG Flexpen] 18 units SQ AC-LUNCH #0 07/02/18 [Rx] Insulin Aspart [NovoLOG Flexpen] 20 unit SQ AC-SUPPER #0 07/02/18 [Rx] Budesonide [Pulmicort Flexhaler] 1 puff INHALATION RT-BID PRN 08/12/18 [History] Ferrous Sulfate [Feosol] 325 mg PO DAILY 08/12/18 [History] Folic Acid 0.4 mg PO DAILY 08/12/18 [History] Glucagon Emergency Kit 1 mg IM ONCE PRN 08/12/18 [History] Lisinopril 20 mg PO AC-BRKFST 08/12/18 [History] Potassium 99 mg PO DAILY 08/12/18 [History] Promethazine HCl [Phenergan Syrup] 6.25 mg PO Q6H PRN 08/12/18 [History] Follow up Appointment(s)/Referral(s): Allyson Guardado MD [Primary Care Provider] - 1-2 days
--- NOTE | 2018-08-15 13:57 | EST ---
EXERCISE STRESS AGE: 67 SEX: F HT: 5'0" WT: 155 PROTOCOL: Lexiscan Cardiolite Stress Test HEART RATE REST: 64 BLOOD PRESSURE REST: 143/95 MAXIMUM HEART RATE ACHIEVED: 93 MAXIMUM BLOOD PRESSURE: 160/84 INDICATIONS: Chest pain. CLINICAL INFORMATION: STRESS DATA: Pretesting physical examination showed a heart rate of 64, pressure is 143/95 mmHg. Baseline EKG showed sinus mechanism with T-wave inversion in inferolateral leads; 0.4 mg of Lexiscan over 15 seconds per protocol. Max heart rate was 93 beats per minute. Maximum pressure was 160/84 mmHg. Clinically, the patient did not have any symptoms and the EKG did not show any significant changes. CONCLUSION: 1. Nondiagnostic electrocardiogram stress testing in response to Lexiscan. 2. Please follow up on the Cardiolite portion on a separate report from Radiology Department. MMODL / IJN: [id number] /
--- NOTE | 2018-08-15 16:06 | ECHOF ---
Referral Reason:cp, ekg changes MEASUREMENTS -------- HEIGHT: 152.4 cm WEIGHT: 70.3 kg BP: 113/70 RVIDd: 3.3 cm (< 3.3) IVSd: 1.3 cm (0.6 - 1.1) LVIDd: 4.7 cm (3.9 - 5.3) LVPWd: 1.3 cm (0.6 - 1.1) IVSs: 1.6 cm LVIDs: 3.2 cm LVPWs: 1.7 cm LA Diam: 3.4 cm (2.7 - 3.8) Ao Diam: 3.4 cm (2.0 - 3.7) AV Cusp: 1.8 cm (1.5 - 2.6) LA Diam: 3.5 cm (2.7 - 3.8) EPSS: 0.4 cm MV E Fuad: 0.68 m/s MV DecT: 173 ms MV A Fuad: 0.85 m/s MV E/A Ratio: 0.79 RAP: 5.00 mmHg RVSP: 38.02 mmHg MV EF SLOPE: 65.22 mm/s (70 - 150) MV EXCURSION: 1.72 cm (> 18.000) FINDINGS -------- Sinus rhythm. This was a technically difficult study with suboptimal views. The left ventricular size is normal. There is mild concentric left ventricular hypertrophy. Overa ll left ventricular systolic function is normal with, an EF between 55 - 60 %. The right ventricle is mildly enlarged. The left atrial size is normal. The right atrium is normal in size. 3 ml of Lumason was utilized for enhancement of images. Aortic valve is trileaflet and is mildly thickened. There is no evidence of aortic regurgitation. There is no evidence of aortic stenosis. The mitral valve leaflets are mildly thickened. There is trace to mild mitral regurgitation. Mild tricuspid regurgitation present. There is mild pulmonary hypertension. The right ventricular systolic pressure, as measured by Doppler, is 38.02mmHg. Trace/mild (physiologic) pulmonic regurgitation. The aortic root size is normal. Normal inferior vena cava with normal inspiratory collapse consistent with estimated right atrial pre ssure of 5 mmHg. There is a small pericardial effusion is located near the right ventricle. CONCLUSIONS -------- 1. Sinus rhythm. 2. This was a technically difficult study with suboptimal views. 3. The left ventricular size is normal. 4. There is mild concentric left ventricular hypertrophy. 5. Overall left ventricular systolic function is normal with, an EF between 55 - 60 %. 6. The right ventricle is mildly enlarged. 7. The left atrial size is normal. 8. 3 ml of Lumason was utilized for enhancement of images. 9. Aortic valve is trileaflet and is mildly thickened. 10. The mitral valve leaflets are mildly thickened. 11. There is trace to mild mitral regurgitation. 12. Mild tricuspid regurgitation present. 13. There is mild pulmonary hypertension. 14. The right ventricular systolic pressure, as measured by Doppler, is 38.02mmHg. 15. Trace/mild (physiologic) pulmonic regurgitation. 16. The aortic root size is normal. 17. There is a small pericardial effusion is located near the right ventricle. FEED MIXER: Jayson Fan RDCS
== END 2018-08-15 16:47 | disposition home or self-care (01) ==
LOC: EC 17:42 → 1SOBS 20:29
PROVIDERS: ADMIT Internal Medicine; ATTEND Internal Medicine
DX: R07.89 Other chest pain (principal); I10 Essential (primary) hypertension; G89.29 Other chronic pain; M54.5 Low back pain; J44.9 Chronic obstructive pulmonary disease, unspecified; E11.9 Type 2 diabetes mellitus without complications; E78.5 Hyperlipidemia, unspecified; M79.7 Fibromyalgia; R00.2 Palpitations; R42 Dizziness and giddiness; R11.0 Nausea; R94.31 Abnormal electrocardiogram [ECG] [EKG]; E27.40 Unspecified adrenocortical insufficiency; G47.33 Obstructive sleep apnea (adult) (pediatric); Z99.89 Dependence on other enabling machines and devices; M19.90 Unspecified osteoarthritis, unspecified site; Z79.4 Long term (current) use of insulin; Z79.899 Other long term (current) drug therapy; Z79.82 Long term (current) use of aspirin; Z88.5 Allergy status to narcotic agent; Z88.0 Allergy status to penicillin; Z88.2 Allergy status to sulfonamides; Z88.8 Allergy status to other drugs, medicaments and biological substances; Z88.1 Allergy status to other antibiotic agents; Z91.02 Food additives allergy status; Z87.01 Personal history of pneumonia (recurrent); Z89.421 Acquired absence of other right toe(s); Z87.442 Personal history of urinary calculi; Z86.19 Personal history of other infectious and parasitic diseases; Z87.440 Personal history of urinary (tract) infections; Z87.81 Personal history of (healed) traumatic fracture; Z86.718 Personal history of other venous thrombosis and embolism; Z90.49 Acquired absence of other specified parts of digestive tract; Z90.710 Acquired absence of both cervix and uterus; Z98.1 Arthrodesis status; Z86.14 Personal history of Methicillin resistant Staphylococcus aureus infection; Z98.42 Cataract extraction status, left eye; Z98.41 Cataract extraction status, right eye; Z83.3 Family history of diabetes mellitus; Z82.49 Family history of ischemic heart disease and other diseases of the circulatory system; Z80.49 Family history of malignant neoplasm of other genital organs; Z83.6 Family history of other diseases of the respiratory system; Z82.3 Family history of stroke
CPT/HCPCS: 96372; 96376; 96361; 96374; 96375; 99285; 36415; 93005; 93017; 85379; 83880; 80061; 80053; 84484 ×2; 85025; 85610; 85730; 81001; 71046; 78452; G0378 ×2; C8929; A9500; J1644; J2405; J1170 ×2; J2785; Q9950; 93306

== ENCOUNTER → 2018-09-18 | Outpatient (CLI) | payer MEDICARE, BC | END | disposition home or self-care (01) | LOC: RADNMMAIN 11:33 | PROVIDERS: ATTEND Internal Medicine Endocrinology, Diabetes & Metabolism | DX: Z53.9 Procedure and treatment not carried out, unspecified reason (principal) ==

== ENCOUNTER 2018-10-07 04:01 | Emergency (ER) | payer MEDICARE, BC ==
[2018-10-07] MEDS ORDERED: SODIUM CHLORIDE 0.9% 1,000 ML IV ONE (04:36)
--- NOTE | 2018-10-07 04:49 | ED ---
General Adult HPI - General Chief complaint: Headache Stated complaint: Nausea, headache Time Seen by Provider: 10/07/18 04:14 Source: EMS Mode of arrival: EMS Limitations: no limitations - History of Present Illness Initial comments: Melissa Pean is a 68-year-old female with extensive past medical history very well-known to the emergency department for her frequent visits. Patient presents today for evaluation of 2 days of nausea and decreased oral intake. Patient has a history of chronic nausea she does have Zofran at home. She reports that it's helped minimally but she was concerned because she is diabetic and she thought she may be coming dehydrated. In addition patient suffers from a chronic headache she follows with pain management for this and has frequent interventions were ordered. Patient received 50 mg of IV Maribel from EMS. Patient reports that her headache today is identical to her chronic headache is unchanged. It did improve with fentanyl. The headache is chronic it was not acute in onset this. The worse headache of her life. There are no red flags symptoms. - Related Data Home Medications Medication Instructions Recorded Confirmed Atorvastatin Calcium [Lipitor] 20 mg PO HS 12/01/14 09/11/18 Cholecalciferol [Vitamin D3] 3,000 unit PO DAILY@0700 12/01/14 09/11/18 L.acidoph,Paracasei, B.lactis 2 cap PO BID 10/12/15 09/11/18 [Probiotic] Ondansetron [Zofran] 4 mg PO Q6H PRN 10/12/15 09/11/18 HYDROcodone/APAP 10-325MG [[place] 1 - 2 tab PO Q4-6H PRN 07/06/17 09/11/18 10-325] Metoprolol Succinate (ER) [Toprol 50 mg PO HS 07/06/17 09/11/18 XL] Meclizine [Antivert] 25 mg PO QID PRN 11/26/17 09/11/18 Magnesium Oxide 400 mg PO QAM 02/26/18 09/11/18 Pantoprazole [Protonix] 40 mg PO BID 02/26/18 09/11/18 Thiamine [Vitamin B-1] 100 mg PO DAILY 02/26/18 09/11/18 Hydrocortisone [Cortef] 10 mg PO AC-LUNCH 05/18/18 09/11/18 Hydrocortisone [Cortef] 15 mg PO AC-BRKFST 05/18/18 09/11/18 Insulin Glargine,Hum.rec.anlog 32 units SQ HS@2200 05/18/18 09/11/18 [Lantus Solostar] Hydrocortisone [Cortef] 5 mg PO HS 06/26/18 09/11/18 Melatonin 5 mg PO HS PRN 06/26/18 09/11/18 Budesonide [Pulmicort Flexhaler] 1 puff INHALATION RT-BID PRN 08/12/18 09/11/18 Ferrous Sulfate [Iron (65 MG 325 mg PO DAILY 08/12/18 09/11/18 Elemental)] Folic Acid 0.4 mg PO DAILY 08/12/18 09/11/18 Glucagon Emergency Kit 1 mg IM ONCE PRN 08/12/18 09/11/18 Cranberry Fruit Extract [Cranberry] 200 mg PO BID 09/09/18 09/11/18 Insulin Aspart [NovoLOG Flexpen] 20 units SQ AC-BRKFST 09/09/18 09/11/18 Insulin Aspart [NovoLOG Flexpen] 21 units SQ BID 09/09/18 09/11/18 Liquid Health Multiple 1 oz PO DAILY 09/09/18 09/11/18 Lisinopril [Prinivil] 10 mg PO DAILY 09/09/18 09/11/18 Methocarbamol [Robaxin-750] 750 mg PO TID PRN 09/09/18 09/11/18 Potassium 99 mg PO DAILY 09/09/18 09/11/18 Vitamin B Complex Drops 1 drop PO BID 09/09/18 09/11/18 Promethazine 6.25MG/5Ml [Phenergan 6.25 mg PO Q6H PRN 09/11/18 09/11/18 Syrup] Sertraline HCl [Zoloft] 50 mg PO 10/07/18 10/07/18 Previous Rx's Medication Instructions Recorded Aspirin 81 mg PO DAILY #0 07/02/18 Ciprofloxacin Ophth Soln [Cipro 1 drops BOTH EYES Q4HR 5 Days #1 09/14/18 0.3% Ophth Soln] bottle HYDROcodone/APAP 10-325MG [[place] 2 each PO Q6H PRN #4 tab 09/14/18 10-325] Nitrofurantoin Monohyd/M-Cryst 100 mg PO Q12HR 6 Days #12 cap 10/07/18 [Macrobid] Allergies Allergy/AdvReac Type Severity Reaction Status Date / Time butorphanol tartrate Allergy BLISTERS Verified 10/07/18 04:08 [From Stadol] IN MOUTH ceftriaxone [From Rocephin] Allergy Unknown Verified 10/07/18 04:08 clarithromycin [From Biaxin] Allergy Rash/Hives Verified 10/07/18 04:08 codeine Allergy Rash/Hives Verified 10/07/18 04:08 ergotamine tartrate Allergy Unknown Verified 10/07/18 04:08 [From Cafergot] erythromycin base Allergy RASH, GI Verified 10/07/18 04:08 [From E-Mycin] SYMPTOMS ketorolac tromethamine Allergy Rash/Hives Verified 10/07/18 04:08 [From Toradol] liraglutide [From Victoza] Allergy Rash/Hives Verified 10/07/18 04:08 monosodium glutamate [MSG] Allergy Nausea & Verified 10/07/18 04:08 Vomiting morphine Allergy Rash/Hives Verified 10/07/18 04:08 nalbuphine HCl [From Nubain] Allergy Nausea & Verified 10/07/18 04:08 Vomiting Penicillins Allergy Rash/Hives Verified 10/07/18 04:08 pentazocine lactate Allergy SEVERE Verified 10/07/18 04:08 [From Talwin] BLISTERS IN MOUTH pregabalin [From Lyrica] Allergy Rash/Hives Verified 10/07/18 04:08 propoxyphene HCl Allergy Rash/Hives Verified 10/07/18 04:08 [From Darvon] Sulfa (Sulfonamide Allergy Rash/Hives Verified 10/07/18 04:08 Antibiotics) tramadol Allergy Unknown Verified 10/07/18 04:08 Review of Systems ROS Statement: Those systems with pertinent positive or pertinent negative responses have been documented in the HPI. ROS Other: All systems not noted in ROS Statement are negative. 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,DVT R calf in 1976, cardiac murmur.occipital neuraligia, c urrently being evaluated for hyperparathyroidism History of Any Multi-Drug Resistant Organisms: MRSA Date of last positivie culture/infection: 2010 MDRO Source:: 4th rt toe Past Surgical History: Appendectomy, Back Surgery, Bladder Surgery, Breast Surgery, Cholecystectomy, Hysterectomy, Orthopedic Surgery, Tonsillectomy Additional Past Surgical History / Comment(s): Lumbar fusions, bladder suspension, occipital nerve blocks, 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 Past Anesthesia/Blood Transfusion Reactions: Motion Sickness Additional Past Anesthesia/Blood Transfusion Reaction / Comment(s): never rec ieved blood Past Psychological History: No Psychological Hx Reported Smoking Status: Never smoker Past Alcohol Use History: None Reported Past Drug Use History: None Reported - Past Family History Father Family Medical History: Coronary Artery Disease (CAD), CVA/TIA, Diabetes Mellitus, Myocardial Infarction ([place]), Pneumonia Additional Family Medical History / Comment(s): ather at the age of 78yrs from [place] and pneumonia. Mother Family Medical History: Cancer Additional Family Medical History / Comment(s): Mother had uterine cancer. She is 96yrs old. General Exam - General Exam Comments Initial Comments: Physical Exam GENERAL: Medically ill appearing female HENT: Normocephalic, Atraumatic. EYES: PERRL, EOMI Mild exophthalmus PULMONARY: Unlabored respirations. No audible rales rhonchi or wheezing was noted. CARDIOVASCULAR: There is a regular rate and rhythm without any murmurs gallops or rubs. ABDOMEN: Soft and nontender with normal bowel sounds. SKIN: Skin is clear with no lesions or rashes and otherwise unremarkable. : Deferred NEUROLOGIC: Patient is alert and oriented x3. Moving all extremities spontaneously MUSCULOSKELETAL: Normal extremities with adequate strength and full range of motion. No lower extremity swelling or edema. No calf tenderness. PSYCHIATRIC: Normal psychiatric evaluation. Limitations: no limitations Limitations: no limitations Course Vital Signs 10/07/18 10/07/18 04:04 05:23 Temperature 98.3 F 98.4 F Pulse Rate 62 60 Respiratory 15 14 Rate Blood Pressure 124/81 135/76 O2 Sat by Pulse 95 95 Oximetry Medical Decision Making - Medical Decision Making The patient was seen and evaluated history is obtained from EMS and the patient and signed patient with 2 days of nausea and concern for dehydration and decreased oral intake Labs, IV fluids were ordered Labs and no significant abnormalities. I return to the patient's room to discuss results. Patient was sleeping comfortably in no acute distress. I did discuss the urinary findings which are suggestive of an early urinary tract infection. Patient did report she's having some mild discomfort. Given the patient's multiple ALLERGIES she'll be treated with by mouth Macrobid for 7 days. First dose of Macrobid will be given in the emergency department a second dose will be given for her to take home today because it is Easter and I do not think she'll be able to get her prescription filled at a pharmacy today. A persistent shoulder given for an additional 6 days or to the total of 7 days of Macrobid. I woke the patient and discussed her results. She then asked for additional pain medications for her chronic headache. I advised that we will not give additional narcotics for her chronic headache especially since she seemed to be sleeping comfortably. Patient's comfortable the plan for discharge home and outpatient follow-up. - Lab Data Result diagrams: 10/07/18 04:20 10/07/18 04:20 Lab Results 10/07/18 10/07/18 10/07/18 Range/Units 04:20 04:20 04:47 WBC 6.8 (3.8-10.6) k/uL RBC 4.98 (3.80-5.40) m/uL Hgb 14.0 (11.4-16.0) gm/dL Hct 43.1 (34.0-46.0) % MCV 86.6 (80.0-100.0) fL MCH 28.0 (25.0-35.0) pg MCHC 32.4 (31.0-37.0) g/dL RDW 14.6 (11.5-15.5) % Plt Count 214 (150-450) k/uL Neutrophils % 63 % Lymphocytes % 25 % Monocytes % 6 % Eosinophils % 3 % Basophils % 0 % Neutrophils # 4.3 (1.3-7.7) k/uL Lymphocytes # 1.7 (1.0-4.8) k/uL Monocytes # 0.4 (0-1.0) k/uL Eosinophils # 0.2 (0-0.7) k/uL Basophils # 0.0 (0-0.2) k/uL Sodium 140 (137-145) mmol/L Potassium 4.1 (3.5-5.1) mmol/L Chloride 102 (98-107) mmol/L Carbon Dioxide 30 (22-30) mmol/L Anion Gap 8 mmol/L BUN 12 (7-17) mg/dL Creatinine 0.67 (0.52-1.04) mg/dL Est GFR (CKD-EPI)AfAm >90 (>60 ml/min/1.73 sqM) Est GFR (CKD-EPI)NonAf >90 (>60 ml/min/1.73 sqM) Glucose 87 (74-99) mg/dL Calcium 11.2 H (8.4-10.2) mg/dL Total Bilirubin 1.6 H (0.2-1.3) mg/dL AST 21 (14-36) U/L ALT 18 (9-52) U/L Alkaline Phosphatase 65 (38-126) U/L Total Protein 6.6 (6.3-8.2) g/dL Albumin 4.3 (3.5-5.0) g/dL Urine Color Yellow Urine Appearance Clear (Clear) Urine pH 7.0 (5.0-8.0) Ur Specific [place] 1.015 (1.001-1.035) Urine Protein Negative (Negative) Urine Glucose (UA) Negative (Negative) Urine Ketones Negative (Negative) Urine Blood Negative (Negative) Urine Nitrite Negative (Negative) Urine Bilirubin Negative (Negative) Urine Urobilinogen <2.0 (<2.0) mg/dL Ur Leukocyte Esterase Moderate H (Negative) Urine RBC <1 (0-5) /hpf Urine WBC 15 H (0-5) /hpf Ur Squamous Epith Cells <1 (0-4) /hpf Urine Bacteria Rare H (None) /hpf Hyaline Casts 1 (0-2) /lpf Urine Mucus Rare H (None) /hpf Disposition Clinical Impression: UTI (urinary tract infection), Chronic pain, DM type 2 (diabetes mellitus, type 2) Disposition: HOME SELF-CARE Condition: Stable Instructions (If sedation given, give patient instructions): Urinary Tract Infection in Women (DC) Prescriptions: Nitrofurantoin Monohyd/M-Cryst [Macrobid] 100 mg PO Q12HR 6 Days #12 cap Is patient prescribed a controlled substance at d/c from ED?: No Referrals: Allyson Guardado MD [Primary Care Provider] - 1-2 days
[2018-10-07 05:04] LABS: Basophils % (A) 0 %; Eosinophils # (A) 0.2 k/uL (0-0.7); Eosinophils % (A) 3 %; HCT 43.1 % (34.0-46.0); Lymphocytes # (A) 1.7 k/uL (1.0-4.8); Lymphocytes % (A) 25 %; MCHC 32.4 g/dL (31.0-37.0); MCV 86.6 fL (80.0-100.0); Mean Platelet Volume 8.1; Monocytes # (A) 0.4 k/uL (0-1.0); Monocytes % (A) 6 %; Neutrophils # (A) 4.3 k/uL (1.3-7.7); Neutrophils % (A) 63 %; Platelet Count 214 k/uL (150-450); RBC 4.98 m/uL (3.80-5.40); RDW 14.6 % (11.5-15.5); WBC 6.8 k/uL (3.8-10.6)
[2018-10-07 05:12] LABS: ALT 18 U/L (9-52); AST 21 U/L (14-36); Albumin 4.3 g/dL (3.5-5.0); Alkaline Phosphatase 65 U/L (38-126); Anion Gap 8 mmol/L; Blood Urea Nitrogen 12 mg/dL (7-17); Calcium 11.2 mg/dL (8.4-10.2); Carbon Dioxide 30 mmol/L (22-30); Chloride 102 mmol/L (98-107); Glucose 87 mg/dL (74-99); Potassium 4.1 mmol/L (3.5-5.1); Sodium 140 mmol/L (137-145); Total Bilirubin 1.6 mg/dL (0.2-1.3); Total Protein 6.6 g/dL (6.3-8.2)
[2018-10-07 05:24] VITALS: RESP 14; TEMP 98.4
[2018-10-07 05:36] LABS: Appearance,Urine Clear (Clear); Bacteria,Urine Rare /hpf; Bilirubin,Urine Negative (Negative); Blood,Urine Negative (Negative); Color,Urine Yellow; Glucose,Urine (UA) Negative (Negative); Hyaline Casts,Urine 1 /lpf (0-2); Ketones,Urine Negative (Negative); Leukocyte Esterase,Urine Moderate (Negative); Mucus,Urine Rare /hpf; Nitrite,Urine Negative (Negative); Protein,Urine Negative (Negative); RBC,Urine <1 /hpf (0-5); Specific Gravity,Urine 1.015 (1.001-1.035); Squamous Epithelial Cell,Urine <1 /hpf (0-4); Urobilinogen,Urine <2.0 mg/dL (<2.0); WBC,Urine 15 /hpf (0-5)
[2018-10-07] MEDS ORDERED: NITROFURANTOIN MONOHYD/M-CRYST 100 MG CAP PO STA (06:13)
[2018-10-07 06:42] VITALS: BP 163/88; PULSE 70
== END 2018-10-07 06:42 | disposition home or self-care (01) ==
LOC: EC 04:01
DX: N39.0 Urinary tract infection, site not specified (principal); G89.29 Other chronic pain; E11.42 Type 2 diabetes mellitus with diabetic polyneuropathy; R51 Headache; R11.0 Nausea; H05.20 Unspecified exophthalmos; J44.9 Chronic obstructive pulmonary disease, unspecified; I10 Essential (primary) hypertension; M19.90 Unspecified osteoarthritis, unspecified site; E27.40 Unspecified adrenocortical insufficiency; Z88.0 Allergy status to penicillin; Z88.1 Allergy status to other antibiotic agents; Z88.2 Allergy status to sulfonamides; Z88.5 Allergy status to narcotic agent; Z88.6 Allergy status to analgesic agent; Z88.8 Allergy status to other drugs, medicaments and biological substances; Z91.02 Food additives allergy status; Z79.4 Long term (current) use of insulin; Z79.52 Long term (current) use of systemic steroids; Z79.899 Other long term (current) drug therapy; Z99.89 Dependence on other enabling machines and devices; Z79.891 Long term (current) use of opiate analgesic; Z86.14 Personal history of Methicillin resistant Staphylococcus aureus infection; Z90.49 Acquired absence of other specified parts of digestive tract; Z98.1 Arthrodesis status; Z98.890 Other specified postprocedural states; Z83.3 Family history of diabetes mellitus
CPT/HCPCS: 36415; 80053; 81001; 85025; 96360; 99283

== ENCOUNTER 2018-10-08 11:53 | Inpatient (IN) | payer MEDICARE, BC ==
[2018-10-08] MEDS ORDERED: SODIUM CHLORIDE 0.9% 500 ML 500 ML IV STA (12:42)
[2018-10-08] MEDS ORDERED: SODIUM CHLORIDE 0.9% 1,000 ML IV STA ×2 (12:42)
[2018-10-08] MEDS ORDERED: ONDANSETRON 4 MG/2 ML VIAL IVP STA (12:42)
[2018-10-08] MEDS ORDERED: LEVOFLOXACIN 750MG-D5W PMX 750 MG in DEXTROSE/WATER 1 150ML.BAG IVPB STA (12:44)
--- NOTE | 2018-10-08 13:09 | ED ---
Nausea/Vomiting/Diarrhea HPI - General Chief complaint: Nausea/Vomiting/Diarrhea Stated complaint: nausea, headache Time Seen by Provider: 10/08/18 12:42 Source: patient, RN notes reviewed, old records reviewed Mode of arrival: ambulatory Limitations: no limitations - History of Present Illness Initial comments: This is a 68-year-old female the ER for evaluation of nausea vomiting. Patient having persistent nausea persistent vomiting, no fevers but is having abdominal pain and diffuse body pain. Patient states she was here in the ER yesterday had UTI and was discharged home. Patient unable to take medication at home. Deny any fevers. No no diarrhea. MD complaint: nausea, vomiting, abdominal pain -: days(s) Description of Vomiting: watery Associated Abdominal Pain: Yes Location: diffuse Radiation: none Severity: moderate Severity scale (1-10): 5 Quality: aching, sharp Consistency: constant Improves with: none Worsens with: none Associated Symptoms: loss of appetite, nausea/vomiting, weakness - Related Data Home Medications Medication Instructions Recorded Confirmed Atorvastatin Calcium [Lipitor] 20 mg PO HS 12/01/14 10/08/18 Cholecalciferol [Vitamin D3] 3,000 unit PO DAILY@0700 12/01/14 10/08/18 Ondansetron [Zofran] 4 mg PO Q6H PRN 10/12/15 10/08/18 HYDROcodone/APAP 10-325MG [[place] 1 - 2 tab PO Q4-6H PRN 07/06/17 10/08/18 10-325] Metoprolol Succinate (ER) [Toprol 50 mg PO HS 07/06/17 10/08/18 XL] Meclizine [Antivert] 25 mg PO QID PRN 11/26/17 10/08/18 Magnesium Oxide 400 mg PO QAM 02/26/18 10/08/18 Pantoprazole [Protonix] 40 mg PO BID 02/26/18 10/08/18 Hydrocortisone [Cortef] 10 mg PO AC-LUNCH 05/18/18 10/08/18 Hydrocortisone [Cortef] 15 mg PO AC-BRKFST 05/18/18 10/08/18 Insulin Glargine,Hum.rec.anlog 32 units SQ HS@2200 05/18/18 10/08/18 [Lantus Solostar] Hydrocortisone [Cortef] 5 mg PO HS 06/26/18 10/08/18 Budesonide [Pulmicort Flexhaler] 1 puff INHALATION RT-BID PRN 08/12/18 10/08/18 Glucagon Emergency Kit 1 mg IM ONCE PRN 08/12/18 10/08/18 Insulin Aspart [NovoLOG Flexpen] 20 units SQ AC-BRKFST 09/09/18 10/08/18 Insulin Aspart [NovoLOG Flexpen] 21 units SQ BID 09/09/18 10/08/18 Lisinopril [Prinivil] 10 mg PO DAILY 09/09/18 10/08/18 Methocarbamol [Robaxin-750] 750 mg PO TID PRN 09/09/18 10/08/18 Promethazine 6.25MG/5Ml [Phenergan 6.25 mg PO Q6H PRN 09/11/18 10/08/18 Syrup] Acetaminophen Tab [Tylenol Tab] 1,000 mg PO Q6HR PRN 10/08/18 10/08/18 Cranberry 300mg 300 mg PO BID 10/08/18 10/08/18 Ferrous Sulfate [Feosol] 325 mg PO DAILY 10/08/18 10/08/18 Folic Acid 0.4 mg PO DAILY 10/08/18 10/08/18 L.acidoph,Paracasei, B.lactis 2 cap PO BID 10/08/18 10/08/18 [Probiotic] Melatonin 5 mg PO HS PRN 10/08/18 10/08/18 Multivitamins, Thera Liquid 30 ml PO DAILY 10/08/18 10/08/18 [Theragran Liquid (formulary)] Potassium 99 mg PO DAILY 10/08/18 10/08/18 Prochlorperazine [Compazine] 10 mg PO Q8H PRN 10/08/18 10/08/18 Sertraline [Zoloft] 50 mg PO DAILY 10/08/18 10/08/18 Thiamine [Vitamin B-1] 100 mg PO DAILY 10/08/18 10/08/18 Vitamin B-Complex Drops 1 drop PO BID 10/08/18 10/08/18 Previous Rx's Medication Instructions Recorded Aspirin 81 mg PO DAILY #0 07/02/18 Nitrofurantoin Monohyd/M-Cryst 100 mg PO Q12HR 6 Days #12 cap 10/07/18 [Macrobid] Allergies Allergy/AdvReac Type Severity Reaction Status Date / Time butorphanol tartrate Allergy BLISTERS Verified 10/08/18 12:48 [From Stadol] IN MOUTH ceftriaxone [From Rocephin] Allergy Unknown Verified 10/08/18 12:48 clarithromycin [From Biaxin] Allergy Rash/Hives Verified 10/08/18 12:48 codeine Allergy Rash/Hives Verified 10/08/18 12:48 ergotamine tartrate Allergy Unknown Verified 10/08/18 12:48 [From Cafergot] erythromycin base Allergy RASH, GI Verified 10/08/18 12:48 [From E-Mycin] SYMPTOMS ketorolac tromethamine Allergy Rash/Hives Verified 10/08/18 12:48 [From Toradol] liraglutide [From Victoza] Allergy Rash/Hives Verified 10/08/18 12:48 monosodium glutamate [MSG] Allergy Nausea & Verified 10/08/18 12:48 Vomiting morphine Allergy Rash/Hives Verified 10/08/18 12:48 nalbuphine HCl [From Nubain] Allergy Nausea & Verified 10/08/18 12:48 Vomiting Penicillins Allergy Rash/Hives Verified 10/08/18 12:48 pentazocine lactate Allergy SEVERE Verified 10/08/18 12:48 [From Talwin] BLISTERS IN MOUTH pregabalin [From Lyrica] Allergy Rash/Hives Verified 10/08/18 12:48 propoxyphene HCl Allergy Rash/Hives Verified 10/08/18 12:48 [From Darvon] Sulfa (Sulfonamide Allergy Rash/Hives Verified 10/08/18 12:48 Antibiotics) tramadol Allergy Unknown Verified 10/08/18 12:48 Review of Systems ROS Statement: Those systems with pertinent positive or pertinent negative responses have been documented in the HPI. ROS Other: All systems not noted in ROS Statement are negative. 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,DVT R calf in 1976, cardiac murmur.occipital neuraligia, currently being evaluated for hyperparathyroidism History of Any Multi-Drug Resistant Organisms: MRSA Date of last positivie culture/infection: 2010 MDRO Source:: 4th rt toe Past Surgical History: Appendectomy, Back Surgery, Bladder Surgery, Breast Surgery, Cholecystectomy, Hysterectomy, Orthopedic Surgery, Tonsillectomy Additional Past Surgical History / Comment(s): Lumbar fusions, bladder suspension, occipital nerve blocks, 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 Past Anesthesia/Blood Transfusion Reactions: Motion Sickness Additional Past Anesthesia/Blood Transfusion Reaction / Comment(s): never recieved blood Past Psychological History: No Psychological Hx Reported Smoking Status: Never smoker Past Alcohol Use History: None Reported Past Drug Use History: None Reported - Past Family History Father Family Medical History: Coronary Artery Disease (CAD), CVA/TIA, Diabetes Mellitus, Myocardial Infarction ([place]), Pneumonia Additional Family Medical History / Comment(s): ather at the age of 78yrs from [place] and pneumonia. Mother Family Medical History: Cancer Additional Family Medical History / Comment(s): Mother had uterine cancer. She is 96yrs old. General Exam Limitations: no limitations General appearance: alert, in no apparent distress Head exam: Present: atraumatic, normocephalic, normal inspection Eye exam: Present: normal appearance, PERRL, EOMI. Absent: scleral icterus, conjunctival injection, periorbital swelling ENT exam: Present: normal exam, mucous membranes moist Neck exam: Present: normal inspection. Absent: tenderness, meningismus, lymphadenopathy Respiratory exam: Present: normal lung sounds bilaterally. Absent: respiratory distress, wheezes, rales, rhonchi, stridor Cardiovascular Exam: Present: regular rate, normal rhythm, normal heart sounds. Absent: systolic murmur, diastolic murmur, rubs, gallop, clicks GI/Abdominal exam: Present: soft, normal bowel sounds. Absent: distended, tende rness, guarding, rebound, rigid Extremities exam: Present: normal inspection, full ROM, normal capillary refill. Absent: tenderness, pedal edema, joint swelling, calf tenderness Back exam: Present: normal inspection Neurological exam: Present: alert, oriented X3, CN II-XII intact Psychiatric exam: Present: normal affect, normal mood Skin exam: Present: warm, dry, intact, normal color. Absent: rash Course Vital Signs 10/08/18 10/08/18 12:28 16:52 Temperature 97.7 F 98.4 F Pulse Rate 119 H 100 Respiratory 18 18 Rate Blood Pressure 110/70 150/92 O2 Sat by Pulse 96 98 Oximetry - Reevaluation(s) Reevaluation #1: Medical record and ER visit from yesterday are reviewed Patient still complaining of pain with active nausea and vomiting Medical Decision Making - Medical Decision Making 68 female the ER for evaluation UTI with contrast minutes nausea vomiting. Unable take medication. We'll admit patient for IV antibiotics - Lab Data Result diagrams: 10/08/18 13:37 10/08/18 13:37 Lab Results 10/08/18 10/08/18 10/08/18 Range/Units 13:37 13:37 13:37 WBC 10.6 (3.8-10.6) k/uL RBC 5.07 (3.80-5.40) m/uL Hgb 13.8 (11.4-16.0) gm/dL Hct 44.9 (34.0-46.0) % MCV 88.4 (80.0-100.0) fL MCH 27.2 (25.0-35.0) pg MCHC 30.7 L (31.0-37.0) g/dL RDW 14.7 (11.5-15.5) % Plt Count 212 (150-450) k/uL Neutrophils % 87 % Lymphocytes % 9 % Monocytes % 2 % Eosinophils % 1 % Basophils % 0 % Neutrophils # 9.2 H (1.3-7.7) k/uL Lymphocytes # 0.9 L (1.0-4.8) k/uL Monocytes # 0.2 (0-1.0) k/uL Eosinophils # 0.1 (0-0.7) k/uL Basophils # 0.0 (0-0.2) k/uL Hypochromasia Slight Sodium 138 (137-145) mmol/L Potassium 4.6 (3.5-5.1) mmol/L Chloride 104 (98-107) mmol/L Carbon Dioxide 16 L (22-30) mmol/L Anion Gap 18 mmol/L BUN 12 (7-17) mg/dL Creatinine 0.77 (0.52-1.04) mg/dL Est GFR (CKD-EPI)AfAm >90 (>60 ml/min/1.73 sqM) Est GFR (CKD-EPI)NonAf 79 (>60 ml/min/1.73 sqM) Glucose 198 H (74-99) mg/dL Plasma Lactic Acid Sudhir 1.2 (0.7-2.0) mmol/L Calcium 11.0 H (8.4-10.2) mg/dL Phosphorus 4.2 (2.5-4.5) mg/dL Magnesium 1.7 (1.6-2.3) mg/dL Total Bilirubin 1.5 H (0.2-1.3) mg/dL AST 21 (14-36) U/L ALT 28 (9-52) U/L Alkaline Phosphatase 68 (38-126) U/L Troponin I (0.000-0.034) ng/mL Total Protein 6.3 (6.3-8.2) g/dL Albumin 4.2 (3.5-5.0) g/dL Urine Color Urine Appearance (Clear) Urine pH (5.0-8.0) Ur Specific [place] (1.001-1.035) Urine Protein (Negative) Urine Glucose (UA) (Negative) Urine Ketones (Negative) Urine Blood (Negative) Urine Nitrite (Negative) Urine Bilirubin (Negative) Urine Urobilinogen (<2.0) mg/dL Ur Leukocyte Esterase (Negative) Urine RBC (0-5) /hpf Urine WBC (0-5) /hpf Ur Squamous Epith Cells (0-4) /hpf Hyaline Casts (0-2) /lpf Urine Mucus (None) /hpf 10/08/18 10/08/18 Range/Units 13:37 14:11 WBC (3.8-10.6) k/uL RBC (3.80-5.40) m/uL Hgb (11.4-16.0) gm/dL Hct (34.0-46.0) % MCV (80.0-100.0) fL MCH (25.0-35.0) pg MCHC (31.0-37.0) g/dL RDW (11.5-15.5) % Plt Count (150-450) k/uL Neutrophils % % Lymphocytes % % Monocytes % % Eosinophils % % Basophils % % Neutrophils # (1.3-7.7) k/uL Lymphocytes # (1.0-4.8) k/uL Monocytes # (0-1.0) k/uL Eosinophils # (0-0.7) k/uL Basophils # (0-0.2) k/uL Hypochromasia Sodium (137-145) mmol/L Potassium (3.5-5.1) mmol/L Chloride (98-107) mmol/L Carbon Dioxide (22-30) mmol/L Anion Gap mmol/L BUN (7-17) mg/dL Creatinine (0.52-1.04) mg/dL Est GFR (CKD-EPI)AfAm (>60 ml/min/1.73 sqM) Est GFR (CKD-EPI)NonAf (>60 ml/min/1.73 sqM) Glucose (74-99) mg/dL Plasma Lactic Acid Sudhir (0.7-2.0) mmol/L Calcium (8.4-10.2) mg/dL Phosphorus (2.5-4.5) mg/dL Magnesium (1.6-2.3) mg/dL Total Bilirubin (0.2-1.3) mg/dL AST (14-36) U/L ALT (9-52) U/L Alkaline Phosphatase (38-126) U/L Troponin I 0.018 (0.000-0.034) ng/mL Total Protein (6.3-8.2) g/dL Albumin (3.5-5.0) g/dL Urine Color Yellow Urine Appearance Clear (Clear) Urine pH 5.5 (5.0-8.0) Ur Specific [place] 1.024 (1.001-1.035) Urine Protein 1+ H (Negative) Urine Glucose (UA) Negative (Negative) Urine Ketones 4+ H (Negative) Urine Blood Negative (Negative) Urine Nitrite Negative (Negative) Urine Bilirubin Negative (Negative) Urine Urobilinogen 2.0 (<2.0) mg/dL Ur Leukocyte Esterase Trace H (Negative) Urine RBC <1 (0-5) /hpf Urine WBC 7 H (0-5) /hpf Ur Squamous Epith Cells <1 (0-4) /hpf Hyaline Casts 40 H (0-2) /lpf Urine Mucus Rare H (None) /hpf - EKG Data -: EKG Interpreted by Me (EKG shows sinus tachycardia rate of 109, RI 142, QRS 20, QTC 404) Disposition Clinical Impression: Dizziness, DM type 2 (diabetes mellitus, type 2), Dehydration, UTI (urinary tract infection), Nausea & vomiting, Failure of outpatient treatment Disposition: ADMITTED IP TO THIS HOSP Condition: Fair Is patient prescribed a controlled substance at d/c from ED?: No
[2018-10-08 13:48] LABS: Basophils % (A) 0 %; Eosinophils # (A) 0.1 k/uL (0-0.7); Eosinophils % (A) 1 %; HCT 44.9 % (34.0-46.0); HGB 13.8 gm/dL (11.4-16.0); Hypochromasia Slight; Lymphocytes # (A) 0.9 k/uL (1.0-4.8); Lymphocytes % (A) 9 %; MCH 27.2 pg (25.0-35.0); MCHC 30.7 g/dL (31.0-37.0); MCV 88.4 fL (80.0-100.0); Mean Platelet Volume 8.3; Monocytes # (A) 0.2 k/uL (0-1.0); Monocytes % (A) 2 %; Neutrophils # (A) 9.2 k/uL (1.3-7.7); Neutrophils % (A) 87 %; Platelet Count 212 k/uL (150-450); RBC 5.07 m/uL (3.80-5.40); RDW 14.7 % (11.5-15.5); WBC 10.6 k/uL (3.8-10.6)
[2018-10-08 13:59] LABS: ALT 28 U/L (9-52); AST 21 U/L (14-36); Albumin 4.2 g/dL (3.5-5.0); Alkaline Phosphatase 68 U/L (38-126); Anion Gap 18 mmol/L; Blood Urea Nitrogen 12 mg/dL (7-17); Carbon Dioxide 16 mmol/L (22-30); Chloride 104 mmol/L (98-107); Glucose 198 mg/dL (74-99); Magnesium 1.7 mg/dL (1.6-2.3); Phosphorus 4.2 mg/dL (2.5-4.5); Potassium 4.6 mmol/L (3.5-5.1); Sodium 138 mmol/L (137-145); Total Bilirubin 1.5 mg/dL (0.2-1.3); Total Protein 6.3 g/dL (6.3-8.2)
[2018-10-08] MEDS ORDERED: HYDROmorphone 1 MG/ML 1 ML SYRINGE IVP STA (14:10)
--- NOTE | 2018-10-08 14:28 | XR ---
EXAMINATION TYPE: XR chest 2V DATE OF EXAM: 10/08/2018 COMPARISON: 09/11/2018 HISTORY: Shortness of breath TECHNIQUE: Frontal and lateral views of the chest are obtained. FINDINGS: Scattered senescent parenchymal changes noted. Hyperinflation compatible with COPD. No evidence for infiltrate. No evidence for atelectasis. Heart size is stable. Mediastinal structures are stable and grossly unremarkable. No evidence for hilar prominence. Degenerative changes dorsal spine. IMPRESSION: 1. No evidence for acute pulmonary disease.
[2018-10-08 14:33] LABS: Appearance,Urine Clear (Clear); Bilirubin,Urine Negative (Negative); Blood,Urine Negative (Negative); Color,Urine Yellow; Glucose,Urine (UA) Negative (Negative); Hyaline Casts,Urine 40 /lpf (0-2); Ketones,Urine 4+ (Negative); Leukocyte Esterase,Urine Trace (Negative); Mucus,Urine Rare /hpf; Nitrite,Urine Negative (Negative); PH, Urine 5.5 (5.0-8.0); Protein,Urine 1+ (Negative); RBC,Urine <1 /hpf (0-5); Specific Gravity,Urine 1.024 (1.001-1.035); Squamous Epithelial Cell,Urine <1 /hpf (0-4); WBC,Urine 7 /hpf (0-5)
--- NOTE | 2018-10-08 15:14 | CT ---
EXAMINATION TYPE: CT abdomen pelvis wo con DATE OF EXAM: 10/08/2018 COMPARISON: 327 HISTORY: nausea, vomiting, diarrhea CT DLP: 626.5 mGycm Examination of the solid and hollow viscera is limited given the lack of contrast. FINDINGS: LUNG BASES: No evidence for nodule. No evidence for infiltrate. Cardiomegaly. LIVER/GB: Cholecystectomy clips in place. No space-occupying hepatic lesion. PANCREAS: No pancreatic mass identified. No inflammatory process seen. SPLEEN: No evidence for splenomegaly. No intrasplenic lesions seen. ADRENALS: No adrenal nodules identified. No evidence for thickening. KIDNEYS: Bilateral nonobstructing nephrolithiasis noted. Hypoattenuating renal lesions compatible wit h cysts. No definite hydronephrosis. BOWEL: Appendix has a normal appearance. No evidence of bowel obstruction. No inflammatory process. Lymph nodes: No evidence for adenopathy greater than 1 cm. Abdominal aorta: Atheromatous changes seen. No evidence for aneurysm. Genital organs: No significant abnormality. Other: Extensive postoperative change lumbar spine. IMPRESSION: 1. No acute process to account for the patient's symptoms. 2. Nonobstructing nephrolithiasis.
[2018-10-08] MEDS ORDERED: NALOXONE 0.4 MG/ML 1 ML VIAL IV PRN (17:41)
[2018-10-08] MEDS ORDERED: ACETAMINOPHEN TAB 325 MG TAB PO PRN (17:41)
[2018-10-08 17:46] VITALS: BMI 30.2
[2018-10-08] MEDS: HYDROmorphone 1 MG/ML 1 ML SYRINGE IVP PRN ×2 (17:57→22:05)
[2018-10-08] MEDS: ONDANSETRON 4 MG/2 ML VIAL IVP PRN (17:59)
[2018-10-08] MEDS ORDERED: IPRATROPIUM-ALBUTEROL 3 ML NEB INHALATION PRN (18:06)
--- NOTE | 2018-10-08 18:11 | P.HPIM ---
History of Present Illness H&P Date: 10/08/18 Chief Complaint: Nausea and vomiting 68 year old F with PMH COPD, adrenal insufficiency. diabetes mellitus, Fibromyalgia, Hypertension, Hyperlipidemia presents to the ED for N/V. Patient reports intense nausea and vomiting since Monday. Her symptoms worsened to the point she called EMS on Monday bringing her to [facility] ED. She was diagnosed with UTI and sent home on oral antibiotics. Patient reports continuation of her symptoms which prompted her to come back to the ED today. Patient also reports generalized weakness, right sided flank pain and dysuria. She denies hematuria. Patient denies fever but reports chills. She denies chest pain, cough, shortness of breath or changes in bowel habits. She denies dizziness, numbness/weakness/tingling of the extremities. Patient reports being off her hydrocortisone since Monday. In the ED, CBC was unremarkable. CMP showed bicarbonate of 16 and glucose of 198. Initial troponin was 0.018. UA showed trade leukocyte esterase. Patient is admitted for pyelonephritis. 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,DVT R calf in 1976, cardiac murmur.occipital neuraligia, currently being evaluated for hyperparathyroidism History of Any Multi-Drug Resistant Organisms: MRSA Date of last positivie culture/infection: 2010 MDRO Source:: 4th rt toe Past Surgical History: Appendectomy, Back Surgery, Bladder Surgery, Breast Surgery, Cholecystectomy, Hysterectomy, Orthopedic Surgery, Tonsillectomy Additional Past Surgical History / Comment(s): Lumbar fusions, bladder suspension, occipital nerve blocks, 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 Past Anesthesia/Blood Transfusion Reactions: Motion Sickness Additional Past Anesthesia/Blood Transfusion Reaction / Comment(s): never recieved blood Past Psychological History: No Psychological Hx Reported Smoking Status: Never smoker Past Alcohol Use History: None Reported Past Drug Use History: None Reported - Past Family History Father Family Medical History: Coronary Artery Disease (CAD), CVA/TIA, Diabetes Mellitus, Myocardial Infarction ([place]), Pneumonia Additional Family Medical History / Comment(s): ather at the age of 78yrs from [place] and pneumonia. Mother Family Medical History: Cancer Additional Family Medical History / Comment(s): Mother had uterine cancer. She is 96yrs old. Medications and Allergies Home Medications Medication Instructions Recorded Confirmed Type Atorvastatin Calcium [Lipitor] 20 mg PO HS 12/01/14 10/08/18 History Cholecalciferol [Vitamin D3] 3,000 unit PO DAILY@0700 12/01/14 10/08/18 History Ondansetron [Zofran] 4 mg PO Q6H PRN 10/12/15 10/08/18 History HYDROcodone/APAP 10-325MG [[place] 1 - 2 tab PO Q4-6H PRN 07/06/17 10/08/18 History 10-325] Metoprolol Succinate (ER) [Toprol 50 mg PO HS 07/06/17 10/08/18 History XL] Meclizine [Antivert] 25 mg PO QID PRN 11/26/17 10/08/18 History Magnesium Oxide 400 mg PO QAM 02/26/18 10/08/18 History Pantoprazole [Protonix] 40 mg PO BID 02/26/18 10/08/18 History Hydrocortisone [Cortef] 10 mg PO AC-LUNCH 05/18/18 10/08/18 History Hydrocortisone [Cortef] 15 mg PO AC-BRKFST 05/18/18 10/08/18 History Insulin Glargine,Hum.rec.anlog 32 units SQ HS@2200 05/18/18 10/08/18 History [Lantus Solostar] Hydrocortisone [Cortef] 5 mg PO HS 06/26/18 10/08/18 History Aspirin 81 mg PO DAILY #0 07/02/18 10/08/18 Rx Budesonide [Pulmicort Flexhaler] 1 puff INHALATION RT-BID PRN 08/12/18 10/08/18 History Glucagon Emergency Kit 1 mg IM ONCE PRN 08/12/18 10/08/18 History Insulin Aspart [NovoLOG Flexpen] 20 units SQ AC-BRKFST 09/09/18 10/08/18 History Insulin Aspart [NovoLOG Flexpen] 21 units SQ BID 09/09/18 10/08/18 History Lisinopril [Prinivil] 10 mg PO DAILY 09/09/18 10/08/18 History Methocarbamol [Robaxin-750] 750 mg PO TID PRN 09/09/18 10/08/18 History Promethazine 6.25MG/5Ml [Phenergan 6.25 mg PO Q6H PRN 09/11/18 10/08/18 History Syrup] Nitrofurantoin Monohyd/M-Cryst 100 mg PO Q12HR 6 Days #12 cap 10/07/18 10/08/18 Rx [Macrobid] Acetaminophen Tab [Tylenol Tab] 1,000 mg PO Q6HR PRN 10/08/18 10/08/18 History Cranberry 300mg 300 mg PO BID 10/08/18 10/08/18 History Ferrous Sulfate [Feosol] 325 mg PO DAILY 10/08/18 10/08/18 History Folic Acid 0.4 mg PO DAILY 10/08/18 10/08/18 History L.acidoph,Paracasei, B.lactis 2 cap PO BID 10/08/18 10/08/18 History [Probiotic] Melatonin 5 mg PO HS PRN 10/08/18 10/08/18 History Multivitamins, Thera Liquid 30 ml PO DAILY 10/08/18 10/08/18 History [Theragran Liquid (formulary)] Potassium 99 mg PO DAILY 10/08/18 10/08/18 History Prochlorperazine [Compazine] 10 mg PO Q8H PRN 10/08/18 10/08/18 History Sertraline [Zoloft] 50 mg PO DAILY 10/08/18 10/08/18 History Thiamine [Vitamin B-1] 100 mg PO DAILY 10/08/18 10/08/18 History Vitamin B-Complex Drops 1 drop PO BID 10/08/18 10/08/18 History Allergies Allergy/AdvReac Type Severity Reaction Status Date / Time butorphanol tartrate Allergy BLISTERS Verified 10/08/18 12:48 [From Stadol] IN MOUTH ceftriaxone [From Rocephin] Allergy Unknown Verified 10/08/18 12:48 clarithromycin [From Biaxin] Allergy Rash/Hives Verified 10/08/18 12:48 codeine Allergy Rash/Hives Verified 10/08/18 12:48 ergotamine tartrate Allergy Unknown Verified 10/08/18 12:48 [From Cafergot] erythromycin base Allergy RASH, GI Verified 10/08/18 12:48 [From E-Mycin] SYMPTOMS ketorolac tromethamine Allergy Rash/Hives Verified 10/08/18 12:48 [From Toradol] liraglutide [From Victoza] Allergy Rash/Hives Verified 10/08/18 12:48 monosodium glutamate [MSG] Allergy Nausea & Verified 10/08/18 12:48 Vomiting morphine Allergy Rash/Hives Verified 10/08/18 12:48 nalbuphine HCl [From Nubain] Allergy Nausea & Verified 10/08/18 12:48 Vomiting Penicillins Allergy Rash/Hives Verified 10/08/18 12:48 pentazocine lactate Allergy SEVERE Verified 10/08/18 12:48 [From Talwin] BLISTERS IN MOUTH pregabalin [From Lyrica] Allergy Rash/Hives Verified 10/08/18 12:48 propoxyphene HCl Allergy Rash/Hives Verified 10/08/18 12:48 [From Darvon] Sulfa (Sulfonamide Allergy Rash/Hives Verified 10/08/18 12:48 Antibiotics) tramadol Allergy Unknown Verified 10/08/18 12:48 Physical Exam Vitals: Vital Signs Temp Pulse Pulse Resp BP Pulse Ox 10/08/18 16:52 98.4 F 100 18 150/92 98 10/08/18 16:48 99.2 F 98 18 10/08/18 12:28 97.7 F 119 H 18 110/70 96 Intake and Output 10/08/18 10/08/18 10/08/18 06:59 14:59 22:59 Other: Weight 70.307 kg General: [non toxic], [mild distress laying in bed], [appears at stated age] Derm: [warm], [dry] Head: [atraumatic], [normocephalic], [symmetric] Eyes: [EOMI], [no lid lag], [anicteric sclera] Mouth: [no lip lesion], [mucus membranes moist] Cardiovascular: [S1S2 reg], [no murmur], [positive DP pulse bilateral] Lungs: [CTA bilateral], [no rhonchi, no rales] , [no accessory muscle use] Abdominal: [soft], [suprapubic tenderness], [no guarding], [no appreciable organomegaly], [R CVA tenderness] Ext: [no gross muscle atrophy], [no edema], [no contractures] Neuro: [no focal neuro deficits] Psych: [Alert], [oriented], [appropriate affect] Results CBC & Chem 7: 10/08/18 13:37 10/08/18 13:37 Labs: Abnormal Lab Results - Last 24 Hours (Table) 10/08/18 10/08/18 10/08/18 Range/Units 13:37 13:37 14:11 MCHC 30.7 L (31.0-37.0) g/dL Neutrophils # 9.2 H (1.3-7.7) k/uL Lymphocytes # 0.9 L (1.0-4.8) k/uL Carbon Dioxide 16 L (22-30) mmol/L Glucose 198 H (74-99) mg/dL Calcium 11.0 H (8.4-10.2) mg/dL Total Bilirubin 1.5 H (0.2-1.3) mg/dL Urine Protein 1+ H (Negative) Urine Ketones 4+ H (Negative) Ur Leukocyte Esterase Trace H (Negative) Urine WBC 7 H (0-5) /hpf Hyaline Casts 40 H (0-2) /lpf Urine Mucus Rare H (None) /hpf Thrombosis Risk Factor Assmnt - Choose All That Apply Any of the Below Risk Factors Present?: Yes Each Factor Represents 1 point: Abnormal pulmonary function (COPD), Varicose veins Other Risk Factors: Yes Each Risk Factor Represents 2 Points: Age 61-74 years Each Risk Factor Represents 3 Points: History of DVT/PE Other congenital or acquired thrombophilia - If yes, enter type in comment: No Thrombosis Risk Factor Assessment Total Risk Factor Score: 7 Thrombosis Risk Factor Assessment Level: High Risk Assessment and Plan Assessment: Assessment and Plan Pyelonephritis COPD Adrenal insufficiency Hypertension Diabetes Mellitus Failed outpatient treatment. UA shows small LE. Start Levofloxacin IV. Zofran as needed for N/V. Pain management with Tylenol, [place] or Dilaudid. Tylenol as needed for fever. Follow urine culture. Follow blood culture. Continue NS at 100 cc/h. Stable. DuoNeb QID PRN for SOB/wheezing. O2 per NC to maintain O2 sat > 92%. Stable. Re-start Hydrocortisone at home dose. Start Solumedrol 40 mg IV TID. Monitor vitals Q4H. Daily BMP to monitor electrolytes. Resume Lisinopril and Metoprolol. Monitor vitals, adjust medications as necessary. Restart home insulin. Regular accuchecks. Hypoglycemic precautions. Patient admitted for pyelonephritis. Failed outpatient Treatment. Started on IV Abx. Pending clinical improvement. Patient names her decision marker if she is unable to make decision. Patient remains FULL CODE.
[2018-10-08] MEDS: INSULIN DETEMIR (LEVEMIR) 100 UNIT/ML SYR SQ SCH (20:53)
[2018-10-08] MEDS: PANTOPRAZOLE 40 MG TABLET PO SCH (21:03)
[2018-10-08] MEDS: METOPROLOL SUCCINATE (ER) 50 MG TAB.ER.24H PO SCH (21:05)
[2018-10-08] MEDS: ATORVASTATIN 20 MG TAB PO SCH (21:05)
[2018-10-08] MEDS: methylPREDNISolone SOD SUCCI 40 MG/ML 1 ML VIAL IV SCH ×2 (21:05→23:55)
[2018-10-08] MEDS: HEPARIN SODIUM,PORCINE 5,000 UNIT/ML 1 ML VIAL SQ SCH (21:05)
[2018-10-08] MEDS: HYDROCORTISONE 10 MG TAB PO SCH (21:05)
[2018-10-09] MEDS: HYDROmorphone 1 MG/ML 1 ML SYRINGE IVP PRN ×5 (02:04→19:12)
[2018-10-09] MEDS: ONDANSETRON 4 MG/2 ML VIAL IVP PRN (02:53)
[2018-10-09] MEDS: MELATONIN 5 MG TABLET PO PRN (02:55)
[2018-10-09 08:08] LABS: ALT 26 U/L (9-52); AST 19 U/L (14-36); Albumin 3.7 g/dL (3.5-5.0); Alkaline Phosphatase 56 U/L (38-126); Anion Gap 10 mmol/L; Blood Urea Nitrogen 12 mg/dL (7-17); Calcium 9.6 mg/dL (8.4-10.2); Carbon Dioxide 19 mmol/L (22-30); Chloride 107 mmol/L (98-107); Glucose 252 mg/dL (74-99); Potassium 4.8 mmol/L (3.5-5.1); Sodium 136 mmol/L (137-145); Total Bilirubin 1.2 mg/dL (0.2-1.3); Total Protein 5.7 g/dL (6.3-8.2)
[2018-10-09] MEDS: PANTOPRAZOLE 40 MG TABLET PO SCH ×2 (08:10→17:17)
[2018-10-09] MEDS: HYDROCORTISONE 10 MG TAB PO SCH ×3 (08:10→20:07)
[2018-10-09] MEDS: LISINOPRIL 10 MG TAB PO SCH (08:10)
[2018-10-09] MEDS: methylPREDNISolone SOD SUCCI 40 MG/ML 1 ML VIAL IV SCH ×2 (08:11→17:17)
[2018-10-09] MEDS: SERTRALINE 50 MG TAB PO SCH (08:11)
[2018-10-09] MEDS: ASPIRIN 81 MG PO SCH (08:11)
[2018-10-09] MEDS: HEPARIN SODIUM,PORCINE 5,000 UNIT/ML 1 ML VIAL SQ SCH ×2 (08:11→20:07)
[2018-10-09] MEDS: HYDROcodone/APAP 5-325MG 1 EACH TAB PO PRN ×4 (09:04→21:56)
[2018-10-09] MEDS: INSULIN ASPART (NovoLOG) 100 UNIT/ML VIAL SQ SCH ×3 (09:33→17:18)
[2018-10-09] MEDS: FERROUS SULFATE 325 MG TAB PO SCH (12:29)
[2018-10-09] MEDS ORDERED: LEVOFLOXACIN 750MG-D5W PMX 750 MG in DEXTROSE/WATER 1 150ML.BAG IVPB SCH (15:00)
--- NOTE | 2018-10-09 15:51 | P.PN ---
Subjective Progress Note Date: 10/09/18 Principal diagnosis: Pyelonephritis Patient was seen and examined. No acute events overnight. Patient reports no changes in her condition. She continued to complain of suprapubic pain that radiates to the right flank. She continues to complain of chills and nausea but no vomiting. She denies any chest pain, shortness of breath or palpitations. Objective - Vital Signs Vital signs: Vital Signs Temp 97.9 F 10/09/18 14:40 Pulse 79 10/09/18 14:40 Resp 15 10/09/18 14:40 BP 120/56 10/09/18 14:40 Pulse Ox 92 L 10/09/18 14:40 Intake & Output 10/08/18 10/09/18 10/09/18 18:59 06:59 18:59 Intake Total 240 Balance 240 Weight 70.307 kg 70.307 kg Intake: Oral 240 Other: # Voids 1 3 - Exam General: [non toxic], [mild distress laying in bed], [appears at stated age] Derm: [warm], [dry] Head: [atraumatic], [normocephalic], [symmetric] Eyes: [EOMI], [no lid lag], [anicteric sclera] Mouth: [no lip lesion], [mucus membranes moist] Cardiovascular: [S1S2 reg], [no murmur], [positive DP pulse bilateral] Lungs: [CTA bilateral], [no rhonchi, no rales] , [no accessory muscle use] Abdominal: [soft], [suprapubic tenderness], [no guarding], [no appreciable organomegaly], [R CVA tenderness] Ext: [no gross muscle atrophy], [no edema], [no contractures] Neuro: [no focal neuro deficits] Psych: [Alert], [oriented], [appropriate affect] - Labs CBC & Chem 7: 10/08/18 13:37 10/09/18 07:18 Labs: Abnormal Lab Results - Last 24 Hours (Table) 10/09/18 Range/Units 07:18 Sodium 136 L (137-145) mmol/L Carbon Dioxide 19 L (22-30) mmol/L Glucose 252 H (74-99) mg/dL Total Protein 5.7 L (6.3-8.2) g/dL Microbiology - Last 24 Hours (Table) 10/08/18 14:11 Urine Culture - Preliminary Urine,Voided Assessment and Plan Assessment: Assessment and Plan Pyelonephritis COPD Adrenal insufficiency Hypertension Diabetes Mellitus Failed outpatient treatment. UA shows small LE. Patient with previous urine culture resistant to ciprofloxacin, will discontinue levofloxacin instead start Zosyn IV. Zofran as needed for N/V. Pain management with Tylenol, [place] or Dilaudid. Tylenol as needed for fever. Follow urine culture. Follow blood culture. Continue NS at 100 cc/h. Stable. DuoNeb QID PRN for SOB/wheezing. O2 per NC to maintain O2 sat > 92%. Stable. Re-start Hydrocortisone at home dose. Start Solumedrol 40 mg IV TID. Monitor vitals Q4H. Daily BMP to monitor electrolytes. Resume Lisinopril and Metoprolol. Monitor vitals, adjust medications as nece ssary. Restart home insulin. Regular accuchecks. Hypoglycemic precautions. Patient admitted for pyelonephritis. Failed outpatient Treatment. Started on IV Abx. Pending clinical improvement. Patient names her decision marker if she is unable to make decision. Patient remains FULL CODE.
[2018-10-09] MEDS: PIPERACILLIN-TAZOBACTAM 3.375 GM in SODIUM CHLORIDE 0.9% 100 ML IVPB SCH (17:17)
[2018-10-09] MEDS: METOPROLOL SUCCINATE (ER) 50 MG TAB.ER.24H PO SCH (20:07)
[2018-10-09] MEDS: ATORVASTATIN 20 MG TAB PO SCH (20:07)
[2018-10-09] MEDS: INSULIN DETEMIR (LEVEMIR) 100 UNIT/ML SYR SQ SCH (21:02)
[2018-10-10] MEDS: PIPERACILLIN-TAZOBACTAM 3.375 GM in SODIUM CHLORIDE 0.9% 100 ML IVPB SCH ×3 (00:02→16:15)
[2018-10-10] MEDS: methylPREDNISolone SOD SUCCI 40 MG/ML 1 ML VIAL IV SCH ×3 (00:02→16:15)
[2018-10-10] MEDS: HYDROmorphone 1 MG/ML 1 ML SYRINGE IVP PRN ×6 (00:05→21:32)
[2018-10-10] MEDS: HYDROcodone/APAP 5-325MG 1 EACH TAB PO PRN ×2 (02:55→19:46)
[2018-10-10 07:06] LABS: Glucose,Whole Blood 221 mg/dL (75-99)
[2018-10-10] MEDS: LISINOPRIL 10 MG TAB PO SCH (07:54)
[2018-10-10] MEDS: HYDROCORTISONE 10 MG TAB PO SCH ×3 (07:54→21:33)
[2018-10-10] MEDS: SERTRALINE 50 MG TAB PO SCH (07:55)
[2018-10-10] MEDS: ASPIRIN 81 MG PO SCH (07:55)
[2018-10-10] MEDS: HEPARIN SODIUM,PORCINE 5,000 UNIT/ML 1 ML VIAL SQ SCH ×2 (07:55→21:34)
[2018-10-10] MEDS: INSULIN ASPART (NovoLOG) 100 UNIT/ML VIAL SQ SCH ×3 (07:55→17:18)
[2018-10-10] MEDS: PANTOPRAZOLE 40 MG TABLET PO SCH ×2 (07:55→17:17)
[2018-10-10 11:26] LABS: Glucose,Whole Blood 241 mg/dL (75-99)
--- NOTE | 2018-10-10 11:28 | P.PN ---
Subjective Progress Note Date: 10/10/18 Principal diagnosis: Pyelonephritis Patient was seen and examined. No acute events overnight. Patient reports slight improvement in her symptoms since yesterday. She reports resolution of her dysuria but continues to complain of right flank pain along with chills. Patient also reports her nausea has improved, able to eat a little more. She denies any chest pain, shortness of breath or palpitations. Bowel movement yesterday. Objective - Vital Signs Vital signs: Vital Signs Temp 96.8 F L 10/10/18 07:48 Pulse 68 10/10/18 07:55 Resp 19 10/10/18 07:55 BP 150/73 10/10/18 07:48 Pulse Ox 93 L 10/10/18 07:48 Intake & Output 10/09/18 10/10/18 10/10/18 18:59 06:59 18:59 Intake Total 480 100 Balance 480 100 Weight 70.307 kg Intake: Intake, IV Titration 100 Amount Piperacillin-Tazobactam 3 100 .375 gm In Sodium Chloride 0.9% 100 ml @ 25 mls/hr IVPB Q8HR [facility] Rx# :[id number] Oral 480 Other: Voiding Method Bedside Commode # Voids 3 1 - Exam General: [non toxic], [mild distress laying in bed], [appears at stated age] Derm: [warm], [dry] Head: [atraumatic], [normocephalic], [symmetric] Eyes: [EOMI], [no lid lag], [anicteric sclera] Mouth: [no lip lesion], [mucus membranes moist] Cardiovascular: [S1S2 reg], [no murmur], [positive DP pulse bilateral] Lungs: [CTA bilateral], [no rhonchi, no rales] , [no accessory muscle use] Abdominal: [soft], [no tender to palpation], [no guarding], [no appreciable organomegaly], [R CVA tenderness] Ext: [no gross muscle atrophy], [no edema], [no contractures] Neuro: [no focal neuro deficits] Psych: [Alert], [oriented], [appropriate affect] - Labs CBC & Chem 7: 10/08/18 13:37 10/09/18 07:18 Labs: Abnormal Lab Results - Last 24 Hours (Table) 10/10/18 Range/Units 06:54 POC Glucose (mg/dL) 221 H (75-99) mg/dL Microbiology - Last 24 Hours (Table) 10/08/18 14:11 Urine Culture - Final Urine,Voided 10/08/18 14:36 Blood Culture - Preliminary Blood No Growth after 24 hours Assessment and Plan Assessment: Assessment and Plan Pyelonephritis COPD Adrenal insufficiency Hypertension Diabetes Mellitus Failed outpatient treatment. UA shows small LE. Patient with previous urine culture resistant to ciprofloxacin, will discontinue levofloxacin instead start Zosyn IV. Zofran as needed for N/V. Pain management with Tylenol, [place] or Dilaudid. Tylenol as needed for fever. Blood culture negative at 24 hours. Urine culture negative at 18 hours. Follow urine culture. Follow blood culture. Continue NS at 100 cc/h. Stable. DuoNeb QID PRN for SOB/wheezing. O2 per NC to maintain O2 sat > 92%. Stable. Re-start Hydrocortisone at home dose. Start Solumedrol 40 mg IV TID. Monitor vitals Q4H. Daily BMP to monitor electrolytes. Resume Lisinopril and Metoprolol. Monitor vitals, adjust medications as necessary. Restart home insulin. Regular accuchecks. Hypoglycemic precautions. Patient admitted for pyelonephritis. Failed outpatient Treatment. Started on IV Abx. Pending clinical improvement. Anticipated DC in 1-2 days pending culture results. Patient names her decision marker if she is unable to make decision. Patient remains FULL CODE.
[2018-10-10] MEDS: FERROUS SULFATE 325 MG TAB PO SCH (12:16)
[2018-10-10 17:02] LABS: Glucose,Whole Blood 176 mg/dL (75-99)
[2018-10-10 17:50] LABS: Hemoglobin A1C 6.8 % (4.0-6.0)
[2018-10-10] MEDS: INSULIN DETEMIR (LEVEMIR) 100 UNIT/ML SYR SQ SCH (21:33)
[2018-10-10] MEDS: ATORVASTATIN 20 MG TAB PO SCH (21:33)
[2018-10-10] MEDS: METOPROLOL SUCCINATE (ER) 50 MG TAB.ER.24H PO SCH (21:34)
[2018-10-11] MEDS: HYDROcodone/APAP 5-325MG 1 EACH TAB PO PRN ×2 (00:01→04:34)
[2018-10-11] MEDS: methylPREDNISolone SOD SUCCI 40 MG/ML 1 ML VIAL IV SCH ×3 (00:02→17:22)
[2018-10-11] MEDS: PIPERACILLIN-TAZOBACTAM 3.375 GM in SODIUM CHLORIDE 0.9% 100 ML IVPB SCH ×4 (00:02→23:34)
[2018-10-11] MEDS: HYDROmorphone 1 MG/ML 1 ML SYRINGE IVP PRN ×6 (01:44→23:34)
[2018-10-11] MEDS: LISINOPRIL 10 MG TAB PO SCH (07:32)
[2018-10-11] MEDS: ASPIRIN 81 MG PO SCH (07:32)
[2018-10-11] MEDS: HEPARIN SODIUM,PORCINE 5,000 UNIT/ML 1 ML VIAL SQ SCH ×2 (07:32→21:25)
[2018-10-11] MEDS: SERTRALINE 50 MG TAB PO SCH (07:32)
[2018-10-11] MEDS: HYDROCORTISONE 10 MG TAB PO SCH ×3 (07:32→21:24)
[2018-10-11] MEDS: PANTOPRAZOLE 40 MG TABLET PO SCH ×2 (07:32→17:22)
[2018-10-11] MEDS: INSULIN ASPART (NovoLOG) 100 UNIT/ML VIAL SQ SCH ×3 (07:34→17:22)
[2018-10-11 11:45] LABS: Glucose,Whole Blood 166 mg/dL (75-99)
[2018-10-11] MEDS: FERROUS SULFATE 325 MG TAB PO SCH (12:08)
--- NOTE | 2018-10-11 15:03 | P.PN ---
Subjective Progress Note Date: 10/11/18 Patient was seen and examined at the bedside. The patient reports continued right flank pain along with some dysuria, the reports that it has improved from admission. She also endorsed feeling weak and requiring more assistance for ambulation. She further noted continued nausea though denied any additional episodes of vomiting. She otherwise denied fever, chills, or cough. She further denied chest pain, shortness of breath. Objective - Vital Signs Vital signs: Vital Signs Temp 97.5 F L 10/11/18 07:00 Pulse 57 L 10/11/18 07:33 Resp 18 10/11/18 07:33 BP 191/73 10/11/18 07:00 Pulse Ox 93 L 10/11/18 08:36 Intake & Output 10/10/18 10/11/18 10/11/18 18:59 06:59 18:59 Intake Total 100 Balance 100 Intake: Intake, IV Titration 100 Amount Piperacillin-Tazobactam 3 100 .375 gm In Sodium Chloride 0.9% 100 ml @ 25 mls/hr IVPB Q8HR [facility] Rx# :[id number] Other: Voiding Method Bedside Commode Bedside Commode Bedside Commode # Voids 1 - Exam General: Non-toxic, in no acute distress, appears stated age, normal weight HEENT: NC/AT, anicteric sclerae, moist conjunctiva, no lid-lag, PERRLA Cardiovascular: S1/S2 wnl, no murmurs, rubs, or gallops Lungs: Clear to auscultation, normal respiratory effort, no accessory muscle use Abdominal: Soft, non-tender, non-distended, no guarding, rebound, or rigidity, mild right CVA tenderness Skin: Warm, dry Extremities: No edema or contractures Psychiatric: Alert and oriented to person, place and time, appropriate affect Neuro: CN II-XII grossly intact, Strength 5/5 in all 4 extremities, Speech intact, Sensation to light touch grossly intact throughout - Labs CBC & Chem 7: 10/08/18 13:37 10/09/18 07:18 Labs: Abnormal Lab Results - Last 24 Hours (Table) 10/09/18 10/10/18 10/11/18 Range/Units 07:18 16:50 11:25 POC Glucose (mg/dL) 176 H 166 H (75-99) mg/dL Hemoglobin A1c 6.8 H (4.0-6.0) % Microbiology - Last 24 Hours (Table) 10/08/18 14:36 Blood Culture - Preliminary Blood No Growth after 48 hours Assessment and Plan Plan: Polynephritis, failed outpatient therapy -Continue with IV Zosyn -Urine and blood cultures no growth to date -Zofran when necessary for nausea COPD, nonacute exacerbation -Continue with bronchodilators Adrenal insufficiency -Will decrease Solu-Medrol to every 12 hours -Continue with home dose of hydrocortisone Hypertension -Continue with lisinopril and metoprolol Diabetes mellitus -Continue with home dose of insulin DVT//GI prophylaxis -Heparin -Protonix Discussed with: Patient Anticipated discharge date: 10/12/[address]: Home A total of 30 minutes was spent on the care of this complex patient more than 50% of the time was spent in counseling and care coordination.
[2018-10-11 16:44] LABS: Glucose,Whole Blood 123 mg/dL (75-99)
[2018-10-11] MEDS: METOPROLOL SUCCINATE (ER) 50 MG TAB.ER.24H PO SCH (19:27)
[2018-10-11 20:26] LABS: Glucose,Whole Blood 239 mg/dL (75-99)
[2018-10-11] MEDS: MELATONIN 5 MG TABLET PO PRN (21:24)
[2018-10-11] MEDS: INSULIN DETEMIR (LEVEMIR) 100 UNIT/ML SYR SQ SCH (21:24)
[2018-10-11] MEDS: ATORVASTATIN 20 MG TAB PO SCH (21:24)
[2018-10-12] MEDS: HYDROmorphone 1 MG/ML 1 ML SYRINGE IVP PRN ×2 (04:24→08:33)
[2018-10-12] MEDS: methylPREDNISolone SOD SUCCI 40 MG/ML 1 ML VIAL IV SCH (05:57)
[2018-10-12 07:46] LABS: Glucose,Whole Blood 205 mg/dL (75-99)
[2018-10-12] MEDS: ASPIRIN 81 MG PO SCH (08:31)
[2018-10-12] MEDS: HEPARIN SODIUM,PORCINE 5,000 UNIT/ML 1 ML VIAL SQ SCH ×2 (08:31→20:57)
[2018-10-12] MEDS: SERTRALINE 50 MG TAB PO SCH (08:31)
[2018-10-12] MEDS: PIPERACILLIN-TAZOBACTAM 3.375 GM in SODIUM CHLORIDE 0.9% 100 ML IVPB SCH ×2 (08:31→16:46)
[2018-10-12] MEDS: INSULIN ASPART (NovoLOG) 100 UNIT/ML VIAL SQ SCH ×4 (08:31→17:15)
[2018-10-12] MEDS: LISINOPRIL 10 MG TAB PO SCH (08:31)
[2018-10-12] MEDS: PANTOPRAZOLE 40 MG TABLET PO SCH ×2 (08:31→17:15)
[2018-10-12] MEDS: HYDROCORTISONE 10 MG TAB PO SCH ×3 (08:32→20:58)
[2018-10-12 09:20] LABS: HCT 36.2 % (34.0-46.0); HGB 11.4 gm/dL (11.4-16.0); MCH 27.8 pg (25.0-35.0); MCHC 31.4 g/dL (31.0-37.0); MCV 88.4 fL (80.0-100.0); Mean Platelet Volume 8.3; Platelet Count 163 k/uL (150-450); RBC 4.09 m/uL (3.80-5.40); RDW 14.5 % (11.5-15.5); WBC 8.4 k/uL (3.8-10.6)
[2018-10-12 09:33] LABS: Anion Gap 9 mmol/L; Blood Urea Nitrogen 19 mg/dL (7-17); Calcium 8.9 mg/dL (8.4-10.2); Carbon Dioxide 28 mmol/L (22-30); Chloride 101 mmol/L (98-107); Glucose 256 mg/dL (74-99); Potassium 3.5 mmol/L (3.5-5.1); Sodium 138 mmol/L (137-145)
[2018-10-12 11:49] LABS: Glucose,Whole Blood 94 mg/dL (75-99)
--- NOTE | 2018-10-12 11:49 | P.DS ---
Providers Date of admission: 10/10/18 20:54 Expected date of discharge: 10/12/18 Attending physician: Christ Corea MD Primary care physician: Allyson Guardado MD Hospital Course: The patient is a 68-year-old female with a PMH of COPD, diabetes mellitus, renal insufficiency, hypertension, hyperlipidemia, fibromyalgia who presented to the ED with complaints of nausea and vomiting. The patient had previously presented for similar symptoms a few days prior and was diagnosed with a UTI and was sent home on oral antibiotics. The patient reported that hurts symptoms had not resolved and she also endorsed generalized weakness along with right-sided flank pain and dysuria. The patient underwent an extensive evaluation in the ED along with an abdomen and pelvis CT without contrast which revealed renal cysts with bilateral nonobstructing nephrolithiasis and no hydronephrosis. The patient was noted to have right-sided CVA tenderness on examination and was thereby admitted to the medicine service for pyelonephritis. The patient was initially started on levofloxacin which was subsequently switched to IV Zosyn based on urine cultures from prior hospitalizations. The patient's blood and urine cultures showed no growth. The patient was also started on stress dose of steroids along with her home dose of hydrocortisone. During the hospitalization, the patient's symptoms gradually improved. The patient was also evaluated by physical therapy after complete self weakness and debility. She was noted to be emulating well with assistance and was cleared for discharge from a PT standpoint. She was seen and examined at the day of discharge at the bedside. She noted that her dysuria had resolved but she continued to have mild right flank pain. The patient was advised to complete her oral antibiotic course and follow-up with her primary care provider. It was explained to the patient that her pain will gradually resolve. She otherwise denied any additional complaints including abdominal pain, nausea, vomiting, fever, chills, chest pain, shortness of breath. The patient is presently stable and ready for discharge to home. Physical Examination General: Non-toxic, in no acute distress, appears stated age, normal weight HEENT: NC/AT, anicteric sclerae, moist conjunctiva, no lid-lag, PERRLA Cardiovascular: S1/S2 wnl, no murmurs, rubs, or gallops Lungs: Clear to auscultation, normal respiratory effort, no accessory muscle use Abdominal: Soft, non-distended, no guarding, rebound, or rigidity, mild right flank tenderness Skin: Warm, dry Extremities: No edema or contractures Psychiatric: Alert and oriented to person, place and time, appropriate affect Neuro: CN II-XII grossly intact, Strength 5/5 in all 4 extremities, Speech intact, Sensation to light touch grossly intact throughout Discharge diagnosis: Pyelonephritis, failed outpatient therapy; COPD, not in acute exacerbation; adrenal insufficiency; hypertension; diabetes mellitus A total of 45 minutes of time were spent preparing this complex discharge summary. Patient Condition at Discharge: Fair Plan - Discharge Summary Discharge Rx Participant: Yes New Discharge Prescriptions: No Action Atorvastatin Calcium [Lipitor] 20 mg PO HS Cholecalciferol [Vitamin D3] 3,000 unit PO DAILY@0700 Ondansetron [Zofran] 4 mg PO Q6H PRN PRN Reason: Nausea And Vomiting HYDROcodone/APAP 10-325MG [[place] 10-325] 1 - 2 tab PO Q4-6H PRN PRN Reason: Pain Metoprolol Succinate (ER) [Toprol XL] 50 mg PO HS Meclizine [Antivert] 25 mg PO QID PRN PRN Reason: Vertigo Magnesium Oxide 400 mg PO QAM Pantoprazole [Protonix] 40 mg PO BID Hydrocortisone [Cortef] 10 mg PO AC-LUNCH Insulin Glargine,Hum.rec.anlog [Lantus Solostar] 32 units SQ HS@2200 Hydrocortisone [Cortef] 15 mg PO AC-BRKFST Hydrocortisone [Cortef] 5 mg PO HS Aspirin 81 mg PO DAILY #0 Budesonide [Pulmicort Flexhaler] 1 puff INHALATION RT-BID PRN PRN Reason: Shortness Of Breath Glucagon Emergency Kit 1 mg IM ONCE PRN PRN Reason: Hypoglycemia Methocarbamol [Robaxin-750] 750 mg PO TID PRN PRN Reason: Muscle Spasm Lisinopril [Prinivil] 10 mg PO DAILY Insulin Aspart [NovoLOG Flexpen] 21 units SQ BID Insulin Aspart [NovoLOG Flexpen] 20 units SQ AC-BRKFST Promethazine 6.25MG/5Ml [Phenergan Syrup] 6.25 mg PO Q6H PRN PRN Reason: Cough Nitrofurantoin Monohyd/M-Cryst [Macrobid] 100 mg PO Q12HR 6 Days #12 cap Prochlorperazine [Compazine] 10 mg PO Q8H PRN PRN Reason: Nausea Acetaminophen Tab [Tylenol Tab] 1,000 mg PO Q6HR PRN PRN Reason: Pain Or Fever > 100.5 Sertraline [Zoloft] 50 mg PO DAILY Ferrous Sulfate [Feosol] 325 mg PO DAILY Vitamin B-Complex Drops 1 drop PO BID Thiamine [Vitamin B-1] 100 mg PO DAILY Folic Acid 0.4 mg PO DAILY Multivitamins, Thera Liquid [Theragran Liquid (formulary)] 30 ml PO DAILY L.acidoph,Paracasei, B.lactis [Probiotic] 2 cap PO BID Melatonin 5 mg PO HS PRN PRN Reason: Insomnia Cranberry 300mg 300 mg PO BID Potassium 99 mg PO DAILY Discharge Medication List Atorvastatin Calcium [Lipitor] 20 mg PO HS 12/01/14 [History] Cholecalciferol [Vitamin D3] 3,000 unit PO DAILY@0700 12/01/14 [History] Ondansetron [Zofran] 4 mg PO Q6H PRN 10/12/15 [History] HYDROcodone/APAP 10-325MG [[place] 10-325] 1 - 2 tab PO Q4-6H PRN 07/06/17 [History] Metoprolol Succinate (ER) [Toprol XL] 50 mg PO HS 07/06/17 [History] Meclizine [Antivert] 25 mg PO QID PRN 11/26/17 [History] Magnesium Oxide 400 mg PO QAM 02/26/18 [History] Pantoprazole [Protonix] 40 mg PO BID 02/26/18 [History] Hydrocortisone [Cortef] 10 mg PO AC-LUNCH 05/18/18 [History] Hydrocortisone [Cortef] 15 mg PO AC-BRKFST 05/18/18 [History] Insulin Glargine,Hum.rec.anlog [Lantus Solostar] 32 units SQ HS@2200 05/18/18 [History] Hydrocortisone [Cortef] 5 mg PO HS 06/26/18 [History] Aspirin 81 mg PO DAILY #0 07/02/18 [Rx] Budesonide [Pulmicort Flexhaler] 1 puff INHALATION RT-BID PRN 08/12/18 [History] Glucagon Emergency Kit 1 mg IM ONCE PRN 08/12/18 [History] Insulin Aspart [NovoLOG Flexpen] 20 units SQ AC-BRKFST 09/09/18 [History] Insulin Aspart [NovoLOG Flexpen] 21 units SQ BID 09/09/18 [History] Lisinopril [Prinivil] 10 mg PO DAILY 09/09/18 [History] Methocarbamol [Robaxin-750] 750 mg PO TID PRN 09/09/18 [History] Promethazine 6.25MG/5Ml [Phenergan Syrup] 6.25 mg PO Q6H PRN 09/11/18 [History] Nitrofurantoin Monohyd/M-Cryst [Macrobid] 100 mg PO Q12HR 6 Days #12 cap 09/18 07/07 [Rx] Acetaminophen Tab [Tylenol Tab] 1,000 mg PO Q6HR PRN 10/08/18 [History] Cranberry 300mg 300 mg PO BID 10/08/18 [History] Ferrous Sulfate [Feosol] 325 mg PO DAILY 10/08/18 [History] Folic Acid 0.4 mg PO DAILY 10/08/18 [History] L.acidoph,Paracasei, B.lactis [Probiotic] 2 cap PO BID 10/08/18 [History] Melatonin 5 mg PO HS PRN 10/08/18 [History] Multivitamins, Thera Liquid [Theragran Liquid (formulary)] 30 ml PO DAILY 10/08/18 [History] Potassium 99 mg PO DAILY 10/08/18 [History] Prochlorperazine [Compazine] 10 mg PO Q8H PRN 10/08/18 [History] Sertraline [Zoloft] 50 mg PO DAILY 10/08/18 [History] Thiamine [Vitamin B-1] 100 mg PO DAILY 10/08/18 [History] Vitamin B-Complex Drops 1 drop PO BID 10/08/18 [History] Follow up Appointment(s)/Referral(s): Allyson Guardado MD [Primary Care Provider] - 1-2 days
[2018-10-12] MEDS: FERROUS SULFATE 325 MG TAB PO SCH (12:27)
[2018-10-12] MEDS: HYDROcodone/APAP 5-325MG 1 EACH TAB PO PRN ×3 (12:33→20:57)
[2018-10-12 17:00] LABS: Glucose,Whole Blood 210 mg/dL (75-99)
[2018-10-12 20:41] LABS: Glucose,Whole Blood 151 mg/dL (75-99)
[2018-10-12] MEDS: ATORVASTATIN 20 MG TAB PO SCH (20:57)
[2018-10-12] MEDS: METOPROLOL SUCCINATE (ER) 50 MG TAB.ER.24H PO SCH (20:57)
[2018-10-12] MEDS: INSULIN DETEMIR (LEVEMIR) 100 UNIT/ML SYR SQ SCH (20:58)
[2018-10-13] MEDS ORDERED: cloNIDine HCL 0.2 MG TAB PO STA (00:35)
[2018-10-13] MEDS: HYDROcodone/APAP 5-325MG 1 EACH TAB PO PRN ×6 (00:42→20:40)
[2018-10-13] MEDS: PIPERACILLIN-TAZOBACTAM 3.375 GM in SODIUM CHLORIDE 0.9% 100 ML IVPB SCH ×4 (00:42→23:30)
[2018-10-13 07:28] LABS: Glucose,Whole Blood 87 mg/dL (75-99)
[2018-10-13] MEDS: HEPARIN SODIUM,PORCINE 5,000 UNIT/ML 1 ML VIAL SQ SCH ×2 (08:26→20:32)
[2018-10-13] MEDS: PANTOPRAZOLE 40 MG TABLET PO SCH ×2 (08:26→16:44)
[2018-10-13] MEDS: ASPIRIN 81 MG PO SCH (08:26)
[2018-10-13] MEDS: LISINOPRIL 10 MG TAB PO SCH (08:27)
[2018-10-13] MEDS: SERTRALINE 50 MG TAB PO SCH (08:27)
[2018-10-13] MEDS: INSULIN ASPART (NovoLOG) 100 UNIT/ML VIAL SQ SCH ×3 (08:27→16:44)
[2018-10-13] MEDS: HYDROCORTISONE 10 MG TAB PO SCH ×3 (08:28→20:33)
--- NOTE | 2018-10-13 10:32 | P.PN ---
Subjective Progress Note Date: 10/13/18 Principal diagnosis: flank pain Patient is a 68-year-old female past medical history of COPD, diabetes, renal insufficiency, hypertension, dyslipidemia, and fibromyalgia who presented to the emergency department complaints of nausea and vomiting. She subsequently was diagnosed with pyelonephritis admitted for IV antibiotics. She continued to progress well. She was initially was discharged on 10/13 to finish up a course of oral antibiotics however she contested her discharge we are currently awaiting determination from the insurance company. Patient seen and examined at bedside. She continues to have some pain and asked for her [place] to be increased. She denies any chest pain, shortness of breath, nausea, or vomiting. She is concerned that her blood pressure escalated through the night last night. She typically states is well controlled at home. She has no other complaints currently. Objective - Vital Signs Vital signs: Vital Signs Temp 98.1 F 10/13/18 07:00 Pulse 50 L 10/13/18 07:00 Resp 16 10/13/18 07:00 BP 151/79 10/13/18 07:00 Pulse Ox 91 L 10/13/18 07:00 Intake & Output 10/12/18 10/13/18 10/13/18 18:59 06:59 18:59 Intake Total 637 240 Balance 637 240 Intake: Oral 637 240 Other: Voiding Method Toilet # Voids 3 3 # Bowel Movements 0 - Exam General: non toxic, no distress, appears at stated age, obese Derm: warm, dry Head: atraumatic, normocephalic, symmetric Eyes: EOMI, no lid lag, anicteric sclera Mouth: no lip lesion, mucus membranes moist Cardiovascular: S1S2 reg, no murmur, positive posterior tibial pulse bilateral, Lungs: CTA bilateral, no rhonchi, no rales , no accessory muscle use Abdominal: soft, nontender to palpation, no guarding, no appreciable organ omegaly Ext: no gross muscle atrophy, no edema, no contractures Neuro: CN II-XI grossly intact, no focal neuro deficits Psych: Alert, oriented, appropriate affect - Labs CBC & Chem 7: 10/12/18 08:20 10/12/18 08:20 Labs: Abnormal Lab Results - Last 24 Hours (Table) 10/12/18 10/12/18 Range/Units 16:48 20:40 POC Glucose (mg/dL) 210 H 151 H (75-99) mg/dL Microbiology - Last 24 Hours (Table) 10/08/18 14:36 Blood Culture - Preliminary Blood No Growth after 96 hours Assessment and Plan Assessment: Pyelonephritis, failed outpatient treatment -Stop Zosyn and start Bactrim -Cultures negative -Blood culture negative -Pain control Adrenal insufficiency -Status post stress dose steroids -Continue with current steroid out regiment which is consistent with her outpatient regimen Hypertension, urgency overnight -Received 1 dose of [place] overnight. Blood pressure currently controlled -Continue to follow blood pressures -Maintain lisinopril and metoprolol. If remains elevated would consider increasing lisinopril to 20 mg Diabetes mellitus type 2- with hyperglycemia -Sugar control improving -Continue his scheduled NovoLog, Levemir, patient currently not on sliding scale -Continue to follow blood sugars -Hemoglobin A1c 6.8 COPD without acute exacerbation -When necessary bronchodilators DVT prophylaxis: Heparin Discussed with: Patient, nursing Anticipated discharge: once we hear back from insurance company Anticipated discharge place: home A total of 25 minutes was spent on the care of this complex patient more than 50% of the time was spent in counseling and care coordination.
[2018-10-13] MEDS: FERROUS SULFATE 325 MG TAB PO SCH (11:20)
[2018-10-13] MEDS: FOLIC ACID 1 MG TAB PO SCH (11:20)
[2018-10-13 11:56] LABS: Glucose,Whole Blood 139 mg/dL (75-99)
[2018-10-13 16:45] LABS: Glucose,Whole Blood 186 mg/dL (75-99)
[2018-10-13] MEDS: METOPROLOL SUCCINATE (ER) 50 MG TAB.ER.24H PO SCH (20:32)
[2018-10-13] MEDS: INSULIN DETEMIR (LEVEMIR) 100 UNIT/ML SYR SQ SCH (20:32)
[2018-10-13] MEDS: ATORVASTATIN 20 MG TAB PO SCH (20:32)
[2018-10-13] MEDS: MELATONIN 5 MG TABLET PO PRN (23:33)
[2018-10-14] MEDS: HYDROcodone/APAP 5-325MG 1 EACH TAB PO PRN ×6 (01:13→21:33)
[2018-10-14 07:07] LABS: Glucose,Whole Blood 83 mg/dL (75-99)
[2018-10-14] MEDS: INSULIN ASPART (NovoLOG) 100 UNIT/ML VIAL SQ SCH ×3 (08:44→18:04)
[2018-10-14] MEDS: HEPARIN SODIUM,PORCINE 5,000 UNIT/ML 1 ML VIAL SQ SCH ×2 (08:53→21:34)
[2018-10-14] MEDS: SERTRALINE 50 MG TAB PO SCH (08:53)
[2018-10-14] MEDS: PANTOPRAZOLE 40 MG TABLET PO SCH ×2 (08:53→18:07)
[2018-10-14] MEDS: PIPERACILLIN-TAZOBACTAM 3.375 GM in SODIUM CHLORIDE 0.9% 100 ML IVPB SCH ×3 (08:53→23:47)
[2018-10-14] MEDS: FOLIC ACID 1 MG TAB PO SCH (08:53)
[2018-10-14] MEDS: LISINOPRIL 10 MG TAB PO SCH (08:53)
[2018-10-14] MEDS: ASPIRIN 81 MG PO SCH (08:54)
[2018-10-14] MEDS: HYDROCORTISONE 10 MG TAB PO SCH ×3 (08:54→21:34)
[2018-10-14] MEDS ORDERED: SULFAMETHOX-TMP 800-160MG 1 EACH TAB PO SCH (09:00)
[2018-10-14] MEDS ORDERED: LISINOPRIL 20 MG TAB PO STA (09:40)
[2018-10-14 11:53] LABS: Glucose,Whole Blood 127 mg/dL (75-99)
[2018-10-14] MEDS: FERROUS SULFATE 325 MG TAB PO SCH (12:47)
--- NOTE | 2018-10-14 15:33 | P.PN ---
Subjective Progress Note Date: 10/14/18 Principal diagnosis: flank pain Patient is a 68-year-old female past medical history of COPD, diabetes, renal insufficiency, hypertension, dyslipidemia, and fibromyalgia who presented to the emergency department complaints of nausea and vomiting. She subsequently was diagnosed with pyelonephritis admitted for IV antibiotics. She continued to progress well. She was initially was discharged on 10/13 to finish up a course of oral antibiotics however she contested her discharge we are currently awaiting determination from the insurance company. Patient seen and examined at bedside. Increase and [place] helped significantly control her pain. Pain currently controlled. No nausea or vomiting, no diarrhea or constipation. Initially wanted to go home today until patient needs written for determination from her insurance company. She is also concerned that her blood pressure is elevated and she was taking Norvasc and 20 mg of lisinopril several weeks ago but this was cut down by her physician. We discussed that we'll increase her lisinopril again and continue to monitor blood pressures but that this can be managed on an outpatient basis. Objective - Vital Signs Vital signs: Vital Signs Temp 98.3 F 10/14/18 14:27 Pulse 61 10/14/18 14:27 Resp 14 10/14/18 14:27 BP 150/82 10/14/18 14:27 Pulse Ox 98 10/14/18 14:27 Intake & Output 10/13/18 10/14/18 10/14/18 18:59 06:59 18:59 Intake Total 1315 532 Balance 1315 532 Intake: Oral 1315 532 Other: Voiding Method Toilet Toilet # Voids 1 2 1 # Bowel Movements 0 - Exam General: non toxic, no distress, appears at stated age, obese Derm: warm, dry Head: atraumatic, normocephalic, symmetric Eyes: EOMI, no lid lag, anicteric sclera Mouth: no lip lesion, mucus membranes moist Cardiovascular: S1S2 reg, no murmur, positive posterior tibial pulse bilateral, Lungs: CTA bilateral, no rhonchi, no rales , no accessory muscle use Abdominal: soft, nontender to palpation, no guarding, no appreciable organomegaly Ext: no gross muscle atrophy, no edema, no contractures Neuro: CN II-XI grossly intact, no focal neuro deficits Psych: Alert, oriented, appropriate affect - Labs CBC & Chem 7: 10/12/18 08:20 04/26/19 08:20 Labs: Abnormal Lab Results - Last 24 Hours (Table) 10/13/18 10/14/18 Range/Units 16:34 11:42 POC Glucose (mg/dL) 186 H 127 H (75-99) mg/dL Microbiology - Last 24 Hours (Table) 10/08/18 14:36 Blood Culture - Preliminary Blood No Growth after 120 hours Assessment and Plan Assessment: Pyelonephritis, failed outpatient treatment -Continue zosyn, allergic to bactrim, based on allergies will likely need fluoroquinolone on discharge as nitrofurantoin not indicated due to pyelo, or consider on ABX on d/c as completed 8 days and no WBC elevation on admission, no fevers, Urince CX negative - ? chronic cystitis as patient had 7 urine cultures all with no growth in the last 12 months. May benefit from urology as outpatient for chronic cystitis -Cultures negative -Blood culture negative -Pain control Adrenal insufficiency -Status post stress dose steroids -Continue with current steroid out regiment which is consistent with her outpatient regimen Hypertension, urgency -increased lisinopril increased to 20 mg, continue metoprolol -Continue to follow blood pressures Diabetes mellitus type 2- with hyperglycemia -Sugar control improving -Continue his scheduled NovoLog, Levemir, patient currently not on sliding scale -Continue to follow blood sugars -Hemoglobin A1c 6.8 COPD without acute exacerbation -When necessary bronchodilators DVT prophylaxis: Heparin Discussed with: Patient, nursing Anticipated discharge: once we hear back from insurance company Anticipated discharge place: home A total of 25 minutes was spent on the care of this complex patient more than 50% of the time was spent in counseling and care coordination.
[2018-10-14 17:00] LABS: Glucose,Whole Blood 167 mg/dL (75-99)
[2018-10-14 20:11] LABS: Glucose,Whole Blood 117 mg/dL (75-99)
[2018-10-14] MEDS: INSULIN DETEMIR (LEVEMIR) 100 UNIT/ML SYR SQ SCH (21:34)
[2018-10-14] MEDS: ATORVASTATIN 20 MG TAB PO SCH (21:34)
[2018-10-14] MEDS: METOPROLOL SUCCINATE (ER) 50 MG TAB.ER.24H PO SCH (21:34)
[2018-10-14] MEDS: MELATONIN 5 MG TABLET PO PRN (21:38)
[2018-10-15] MEDS: HYDROcodone/APAP 5-325MG 1 EACH TAB PO PRN ×4 (02:42→15:12)
[2018-10-15 06:59] LABS: Glucose,Whole Blood 65 mg/dL (75-99)
[2018-10-15 07:20] LABS: Glucose,Whole Blood 80 mg/dL (75-99)
[2018-10-15] MEDS: INSULIN ASPART (NovoLOG) 100 UNIT/ML VIAL SQ SCH ×2 (07:29→12:32)
[2018-10-15 07:53] VITALS: BP 168/80; PULSE 53; RESP 16; TEMP 97.9
[2018-10-15 08:20] LABS: Anion Gap 5 mmol/L; Blood Urea Nitrogen 24 mg/dL (7-17); Calcium 9.4 mg/dL (8.4-10.2); Carbon Dioxide 31 mmol/L (22-30); Chloride 105 mmol/L (98-107); Glucose 54 mg/dL (74-99); Potassium 3.7 mmol/L (3.5-5.1); Sodium 141 mmol/L (137-145)
[2018-10-15] MEDS: FOLIC ACID 1 MG TAB PO SCH (09:29)
[2018-10-15] MEDS: PIPERACILLIN-TAZOBACTAM 3.375 GM in SODIUM CHLORIDE 0.9% 100 ML IVPB SCH ×2 (09:29→15:08)
[2018-10-15] MEDS: ASPIRIN 81 MG PO SCH (09:29)
[2018-10-15] MEDS: PANTOPRAZOLE 40 MG TABLET PO SCH (09:29)
[2018-10-15] MEDS: LISINOPRIL 10 MG TAB PO SCH (09:29)
[2018-10-15] MEDS: SERTRALINE 50 MG TAB PO SCH (09:30)
[2018-10-15] MEDS: HEPARIN SODIUM,PORCINE 5,000 UNIT/ML 1 ML VIAL SQ SCH (09:30)
[2018-10-15] MEDS: HYDROCORTISONE 10 MG TAB PO SCH ×2 (09:30→12:34)
[2018-10-15] MEDS ORDERED: LISINOPRIL 20 MG TAB PO STA (10:48)
--- NOTE | 2018-10-15 10:59 | P.DS ---
Providers Date of admission: 10/10/18 20:54 Expected date of discharge: 10/15/18 Attending physician: Christ Corea MD Primary care physician: Allyson Guardado MD Hospital Course: The patient is a 68-year-old female with a PMH of COPD, diabetes mellitus, renal insufficiency, hypertension, hyperlipidemia, fibromyalgia who presented to the ED with complaints of nausea and vomiting. The patient had previously presented for similar symptoms a few days prior and was diagnosed with a UTI and was sent home on oral antibiotics. The patient reported that hurts symptoms had not resolved and she also endorsed generalized weakness along with right-sided flank pain and dysuria. The patient underwent an extensive evaluation in the ED along with an abdomen and pelvis CT without contrast which revealed renal cysts with bilateral nonobstructing nephrolithiasis and no hydronephrosis. The patient was noted to have right-sided CVA tenderness on examination and was thereby admitted to the medicine service for pyelonephritis. The patient was initially started on levofloxacin which was subsequently switched to IV Zosyn based on urine cultures from prior hospitalizations. The patient's blood and urine cultures showed no growth. The patient was also started on stress dose of steroids along with her home dose of hydrocortisone. During the hospitalization, the patient's symptoms gradually improved. The patient was also evaluated by physical therapy after complaining of weakness and debility. She was noted to be ambulating well with assistance and was cleared for discharge from a PT standpoint. The patient was susbequently cleared for discharge, however, she contested her discharge and the paperwork was sent in on 10/12/18. Due to clerical errors, the paperwork could not be completed and the patient's appeal couldn't be sent and that she had the ability to re-contest if she wished to. The patient was informed of this on 10/15/18 in the am. She was seen at the bedside on 10/15/18. She noted that she feels well and that her flank pain has nearly resolved and she no longer had any additional complaints. She denied chest pain, SOB, nausea, vomiting, abdominal pain, or dysuria. Discussed with the patient that in light of her negative cultures and clinical progress, that will hold off on oral antibiotics since she received an 8-day course in-hospital already. The pharmacy was called and the previously prescribed Bactrim order was cancelled. The patient is presently stably and ready for discharge to home. Physical Examination General: Non-toxic, in no acute distress, appears stated age, normal weight HEENT: NC/AT, anicteric sclerae, moist conjunctiva, no lid-lag, PERRLA Cardiovascular: S1/S2 wnl, no murmurs, rubs, or gallops Lungs: Clear to auscultation, normal respiratory effort, no accessory muscle use Abdominal: Soft, non-distended, no guarding, rebound, or rigidity, minimal right flank tenderness Skin: Warm, dry Extremities: No edema or contractures Psychiatric: Alert and oriented to person, place and time, appropriate affect Neuro: CN II-XII grossly intact, Strength 5/5 in all 4 extremities, Speech intact, Sensation to light touch grossly intact throughout Discharge diagnosis: Pyelonephritis, failed outpatient therapy; COPD, not in acute exacerbation; adrenal insufficiency; hypertension; diabetes mellitus A total of 40 minutes of time were spent preparing this complex discharge summary. Patient Condition at Discharge: Fair Plan - Discharge Summary Discharge Rx Participant: Yes New Discharge Prescriptions: Continue Atorvastatin Calcium [Lipitor] 20 mg PO HS Cholecalciferol [Vitamin D3] 3,000 unit PO DAILY@0700 Ondansetron [Zofran] 4 mg PO Q6H PRN PRN Reason: Nausea And Vomiting HYDROcodone/APAP 10-325MG [Levan 10-325] 1 - 2 tab PO Q4-6H PRN PRN Reason: Pain Metoprolol Succinate (ER) [Toprol XL] 50 mg PO HS Meclizine [Antivert] 25 mg PO QID PRN PRN Reason: Vertigo Magnesium Oxide 400 mg PO QAM Pantoprazole [Protonix] 40 mg PO BID Hydrocortisone [Cortef] 10 mg PO AC-LUNCH Insulin Glargine,Hum.rec.anlog [Lantus Solostar] 32 units SQ HS@2200 Hydrocortisone [Cortef] 15 mg PO AC-BRKFST Hydrocortisone [Cortef] 5 mg PO HS Aspirin 81 mg PO DAILY #0 Budesonide [Pulmicort Flexhaler] 1 puff INHALATION RT-BID PRN PRN Reason: Shortness Of Breath Glucagon Emergency Kit 1 mg IM ONCE PRN PRN Reason: Hypoglycemia Methocarbamol [Robaxin-750] 750 mg PO TID PRN PRN Reason: Muscle Spasm Lisinopril [Prinivil] 10 mg PO DAILY Insulin Aspart [NovoLOG Flexpen] 21 units SQ BID Insulin Aspart [NovoLOG Flexpen] 20 units SQ AC-BRKFST Promethazine 6.25MG/5Ml [Phenergan Syrup] 6.25 mg PO Q6H PRN PRN Reason: Cough Prochlorperazine [Compazine] 10 mg PO Q8H PRN PRN Reason: Nausea Acetaminophen Tab [Tylenol] 1,000 mg PO Q6HR PRN PRN Reason: Pain Or Fever > 100.5 Sertraline [Zoloft] 50 mg PO DAILY Ferrous Sulfate [Iron (65 MG Elemental)] 325 mg PO DAILY Vitamin B-Complex Drops 1 drop PO BID Thiamine [Vitamin B-1] 100 mg PO DAILY Folic Acid 0.4 mg PO DAILY Multivitamins, Thera Liquid [Theragran Liquid (formulary)] 30 ml PO DAILY L.acidoph,Paracasei, B.lactis [Probiotic] 2 cap PO BID Melatonin 5 mg PO HS PRN PRN Reason: Insomnia Cranberry 300mg 300 mg PO BID Potassium 99 mg PO DAILY Discontinued Nitrofurantoin Monohyd/M-Cryst [Macrobid] 100 mg PO Q12HR 6 Days #12 cap Discharge Medication List Atorvastatin Calcium [Lipitor] 20 mg PO HS 12/01/14 [History] Cholecalciferol [Vitamin D3] 3,000 unit PO DAILY@0700 12/01/14 [History] Ondansetron [Zofran] 4 mg PO Q6H PRN 10/12/15 [History] HYDROcodone/APAP 10-325MG [Levan 10-325] 1 - 2 tab PO Q4-6H PRN 07/06/17 [History] Metoprolol Succinate (ER) [Toprol XL] 50 mg PO HS 07/06/17 [History] Meclizine [Antivert] 25 mg PO QID PRN 11/26/17 [History] Magnesium Oxide 400 mg PO QAM 02/26/18 [History] Pantoprazole [Protonix] 40 mg PO BID 02/26/18 [History] Hydrocortisone [Cortef] 10 mg PO AC-LUNCH 05/18/18 [History] Hydrocortisone [Cortef] 15 mg PO AC-BRKFST 05/18/18 [History] Insulin Glargine,Hum.rec.anlog [Lantus Solostar] 32 units SQ HS@2200 05/18/18 [History] Hydrocortisone [Cortef] 5 mg PO HS 06/26/18 [History] Aspirin 81 mg PO DAILY #0 07/02/18 [Rx] Budesonide [Pulmicort Flexhaler] 1 puff INHALATION RT-BID PRN 08/12/18 [History] Glucagon Emergency Kit 1 mg IM ONCE PRN 08/12/18 [History] Insulin Aspart [NovoLOG Flexpen] 20 units SQ AC-BRKFST 09/09/18 [History] Insulin Aspart [NovoLOG Flexpen] 21 units SQ BID 09/09/18 [History] Lisinopril [Prinivil] 10 mg PO DAILY 09/09/18 [History] Methocarbamol [Robaxin-750] 750 mg PO TID PRN 09/09/18 [History] Promethazine 6.25MG/5Ml [Phenergan Syrup] 6.25 mg PO Q6H PRN 09/11/18 [History] Acetaminophen Tab [Tylenol] 1,000 mg PO Q6HR PRN 10/08/18 [History] Cranberry 300mg 300 mg PO BID 10/08/18 [History] Ferrous Sulfate [Iron (65 MG Elemental)] 325 mg PO DAILY 10/08/18 [History] Folic Acid 0.4 mg PO DAILY 10/08/18 [History] L.acidoph,Paracasei, B.lactis [Probiotic] 2 cap PO BID 10/08/18 [History] Melatonin 5 mg PO HS PRN 10/08/18 [History] Multivitamins, Thera Liquid [Theragran Liquid (formulary)] 30 ml PO DAILY 10/08/18 [History] Potassium 99 mg PO DAILY 10/08/18 [History] Prochlorperazine [Compazine] 10 mg PO Q8H PRN 10/08/18 [History] Sertraline [Zoloft] 50 mg PO DAILY 10/08/18 [History] Thiamine [Vitamin B-1] 100 mg PO DAILY 10/08/18 [History] Vitamin B-Complex Drops 1 drop PO BID 10/08/18 [History] Follow up Appointment(s)/Referral(s): Allyson Guardado MD [Primary Care Provider] - 10/22/18 11:00 am Patient Instructions/Handouts: Urinary Tract Infection in Women (DC) Discharge Disposition: HOME SELF-CARE
[2018-10-15 12:05] LABS: Glucose,Whole Blood 89 mg/dL (75-99)
[2018-10-15] MEDS: FERROUS SULFATE 325 MG TAB PO SCH (12:34)
[2018-10-16] MEDS ORDERED: LISINOPRIL 10 MG TAB PO SCH (09:00)
== END 2018-10-15 15:43 | disposition home or self-care (01) | DRG 690 ==
LOC: EC 11:53 → 4SSUR 14:40 → OBSVTOIN 10-10 20:54
PROVIDERS: ADMIT Internal Medicine; ATTEND Internal Medicine
DX: N12 Tubulo-interstitial nephritis, not specified as acute or chronic (principal); E27.40 Unspecified adrenocortical insufficiency; E11.65 Type 2 diabetes mellitus with hyperglycemia; N28.1 Cyst of kidney, acquired; J44.9 Chronic obstructive pulmonary disease, unspecified; E86.0 Dehydration; M79.7 Fibromyalgia; I10 Essential (primary) hypertension; G47.33 Obstructive sleep apnea (adult) (pediatric); E78.5 Hyperlipidemia, unspecified; M19.90 Unspecified osteoarthritis, unspecified site; N30.20 Other chronic cystitis without hematuria; N20.0 Calculus of kidney; E66.9 Obesity, unspecified; Z71.3 Dietary counseling and surveillance; Z16.23 Resistance to quinolones and fluoroquinolones; Z68.30 Body mass index [BMI] 30.0-30.9, adult; Z79.899 Other long term (current) drug therapy; Z79.4 Long term (current) use of insulin; Z79.82 Long term (current) use of aspirin; Z87.01 Personal history of pneumonia (recurrent); Z89.421 Acquired absence of other right toe(s); Z87.81 Personal history of (healed) traumatic fracture; Z87.442 Personal history of urinary calculi; Z86.14 Personal history of Methicillin resistant Staphylococcus aureus infection; Z90.710 Acquired absence of both cervix and uterus; Z90.49 Acquired absence of other specified parts of digestive tract; Z88.1 Allergy status to other antibiotic agents; Z88.5 Allergy status to narcotic agent; Z88.0 Allergy status to penicillin; Z88.8 Allergy status to other drugs, medicaments and biological substances; Z83.3 Family history of diabetes mellitus; Z82.49 Family history of ischemic heart disease and other diseases of the circulatory system; Z82.3 Family history of stroke; Z80.49 Family history of malignant neoplasm of other genital organs
CPT/HCPCS: 36415; 71046; 74176; 80048; 80053; 81001; 83036; 83605; 83735; 84100; 84484; 85025; 85027; 87040; 87086; 93005; 94760; 96361; 96365; 96366; 96375; 99285

== ENCOUNTER → 2018-10-18 | Outpatient (CLI) | payer MEDICARE, BC ==
[2018-10-18 14:11] VITALS: BP 139/73; PULSE 87; RESP 18
--- NOTE | 2018-10-18 14:29 | P.CON ---
Consult Note - . Consult date: 10/18/18 Assessment/Plan:: This is a 68-year-old lady with history of atrial insufficiency and chronic oral steroid use. The patient has history of chronic occipital headache however since her last occipital nerve block bilaterally her pain has been manageable an d usually under 5 out of 10 on a scale from 0-10 for pain intensity. The patient uses [place] 10 mg 2-5 pills per day and she gets that from her primary care physician. By physical exam she has the Peep the facial features. Alert oriented 3 in no apparent distress. She uses walker for ambulation. There is mild tenderness in the occipital area bilaterally At this point the patient's pain is manageable and there is no need to repeat her occipital nerve block however if her pain gets worse she will give us a call and then we can schedule her for another injection. The patient will be seen on an as-needed basis.
== END ==
LOC: PNWHC3 13:51
PROVIDERS: ATTEND Anesthesiology
DX: G89.29 Other chronic pain (principal); R51 Headache; Z79.891 Long term (current) use of opiate analgesic
CPT/HCPCS: 99211

== ENCOUNTER → 2018-10-18 | Outpatient (CLI) | payer MEDICARE, BC ==
[~2018-10-18] MED LIST changes: +IPRATROPIUM-ALBUTEROL 3 ML NEB ONE; -LACTATED RINGERS 1,000 ML IV SCH
--- NOTE | 2018-10-19 11:56 | BD ---
EXAMINATION TYPE: Axial Bone Density DATE OF EXAM: 10/18/2018 COMPARISON: 03.23.2017 CLINICAL HISTORY: 68 YR OLD FEMALE....ICD-10 CODE: AGE RELATED OSTEOPOROSIS Height: 58.8 Weight: 150 FRAX RISK QUESTIONS: Glucocorticoids (More than 3mos): YES (Ex: prednisone, prednisolone, methylprednisolone, dexamethasone, and hydrocortisone). History of Fracture in Adulthood: YES Secondary Osteoporosis: YES 1. Type 1 Diabetes: YES RISK FACTORS HISTORY OF: HX OF BROKEN PELVIS....YRS AGO...BUT OVER 49 AT TIME Surgery to Spine FUSION OF L4 AND L5...HARDWARE, 2011 Family History of Osteoporosis: YES, HER MOTHER...NO HIP FX Postmenopausal woman: NATURAL PROCESS AT 50 Lost more than 2 inches in height since high school: YES Frequent falls: USES WALKER, UNSTEADY Poor Health: HEALTH CONCERNS Hyperparathyroidism: YES Adrenal Insufficiency: YES MEDICATIONS: Prednisone or other steroids: CORTEF, 25 MGS DAILY, How Long: MANY YRS Additional Medications: BP MEDS, ZOLOFT, INSULIN, PROTONIX, LIPITOR, VIT D Additional History: RENAL, DIABETIC, OSTEOARTHRITIS, ADRENAL INSUFFICIENCY, CHOLESTEROL, EXAM MEASUREMENTS: Bone mineral densitometry was performed using the [employer]. LUMBAR FUSION Bone mineral density about the R hip (g/cm2): 0.887 Bone mineral density about the L hip (g/cm2): 0.899 T Score values are as follows: -----R Neck: -2.3 -----L Neck: -2.2 -----R Total: -1.0 -----L Total: -0.9 Bone mineral density has: Decreased -1.9% since study of: 03.23.2017 FRAX%s: THERE IS A 30.8% CHANCE FOR A MAJOR OSTEOPOROTIC FX AND A 7.7% FOR HIP.....PROBABILITY OF F X IN 10 YRS TIME Bone mineral density about the L Wrist (g/cm2): 0.598 T Score values are as follows: -----Dist. R+U: -1.4 -----Prox. R+U: 0.2 -----Radius total: -0.8 Bone mineral density has: Increased 4.3% since study of: 03.23.2017 IMPRESSION: No evidence for osteoporosis or osteopenia. NOTE: T-SCORE=SD OF THE YOUNG ADULT MEAN.
== END ==
LOC: RADBDWWP 14:30
PROVIDERS: ATTEND Internal Medicine Endocrinology, Diabetes & Metabolism
DX: M81.0 Age-related osteoporosis without current pathological fracture (principal)
CPT/HCPCS: 77080

== ENCOUNTER 2018-11-04 11:30 | Emergency (ER) | payer MEDICARE, BC ==
[2018-11-04] MEDS ORDERED: diphenhydrAMINE 50 MG/ML 1 ML VIAL IVP STA (12:15)
[2018-11-04] MEDS ORDERED: METOCLOPRAMIDE 5 MG/ML 2 ML VIAL IVP STA (12:15)
[2018-11-04] MEDS ORDERED: SODIUM CHLORIDE 0.9% 1,000 ML IV STA (12:15)
[2018-11-04 12:56] LABS: Basophils % (A) 1 %; Eosinophils # (A) 0.3 k/uL (0-0.7); Eosinophils % (A) 3 %; HCT 43.2 % (34.0-46.0); HGB 13.8 gm/dL (11.4-16.0); Lymphocytes # (A) 1.3 k/uL (1.0-4.8); Lymphocytes % (A) 16 %; MCH 27.8 pg (25.0-35.0); MCV 86.7 fL (80.0-100.0); Mean Platelet Volume 7.2; Monocytes # (A) 0.5 k/uL (0-1.0); Monocytes % (A) 6 %; Neutrophils % (A) 73 %; Platelet Count 309 k/uL (150-450); RBC 4.98 m/uL (3.80-5.40); RDW 14.7 % (11.5-15.5); WBC 8.3 k/uL (3.8-10.6)
[2018-11-04] MEDS ORDERED: HYDROmorphone 1 MG/ML 1 ML SYRINGE IVP STA (12:57)
[2018-11-04 13:06] LABS: ALT 18 U/L (9-52); AST 31 U/L (14-36); Albumin 4.2 g/dL (3.5-5.0); Alkaline Phosphatase 59 U/L (38-126); Anion Gap 7 mmol/L; Blood Urea Nitrogen 16 mg/dL (7-17); Calcium 10.8 mg/dL (8.4-10.2); Carbon Dioxide 28 mmol/L (22-30); Chloride 102 mmol/L (98-107); Glucose 184 mg/dL (74-99); Sodium 137 mmol/L (137-145); Total Bilirubin 1.5 mg/dL (0.2-1.3); Total Protein 6.7 g/dL (6.3-8.2)
[2018-11-04 13:46] VITALS: BP 150/95; RESP 16
[2018-11-04] MEDS ORDERED: HYDROCORTISONE SUCCINATE 100 MG/2 ML VIAL IV STA (14:01)
--- NOTE | 2018-11-04 14:23 | ED ---
General Adult HPI - General Chief complaint: Nausea/Vomiting/Diarrhea Stated complaint: Headache, back pain Time Seen by Provider: 11/04/18 11:43 Source: patient, RN notes reviewed Mode of arrival: wheelchair Limitations: no limitations - History of Present Illness Initial comments: 68-year-old female with a complicated past medical history including occipital neuralgia, adrenal insufficiency presents to the emergency department for a chief complaint of headache and neck pain. Patient states this is been ongoing for a few days. States that she has had this type headache on and off before. States she has a history of occipital neuralgia which is where her headache is located. Patient states she is also nauseous and vomiting which is from the migraine headache as she also has a history of migraines. Denies abdominal pain, states this vomiting is secondary to the headache. Denies any head injuries. Denies any lower back pain. Patient states she is mostly here for pain management.Patient has no other complaints at this time including shortness of breath, chest pain, abdominal pain, or visual changes. - Related Data Home Medications Medication Instructions Recorded Confirmed Atorvastatin Calcium [Lipitor] 20 mg PO HS 12/01/14 10/18/18 Cholecalciferol [Vitamin D3 (25 3,000 unit PO DAILY@0700 12/01/14 10/18/18 Mcg = 1000 Iu)] Ondansetron [Zofran] 4 mg PO Q6H PRN 10/12/15 10/18/18 HYDROcodone/APAP 10-325MG [[place] 1 - 2 tab PO Q4-6H PRN 07/06/17 10/18/18 10-325] Metoprolol Succinate (ER) [Toprol 50 mg PO HS 07/06/17 10/18/18 XL] Meclizine [Antivert] 25 mg PO QID PRN 11/26/17 10/18/18 Magnesium Oxide 400 mg PO QAM 02/26/18 10/18/18 Pantoprazole [Protonix] 40 mg PO BID 02/26/18 10/18/18 Hydrocortisone [Cortef] 10 mg PO AC-LUNCH 05/18/18 10/18/18 Hydrocortisone [Cortef] 15 mg PO AC-BRKFST 05/18/18 10/18/18 Insulin Glargine,Hum.rec.anlog 32 units SQ HS@2200 05/18/18 10/18/18 [Lantus Solostar] Hydrocortisone [Cortef] 5 mg PO HS 06/26/18 10/18/18 Budesonide [Pulmicort Flexhaler] 1 puff INHALATION RT-BID PRN 08/12/18 10/18/18 Glucagon Emergency Kit 1 mg IM ONCE PRN 08/12/18 10/18/18 Insulin Aspart [NovoLOG Flexpen] 20 units SQ AC-BRKFST 09/09/18 10/18/18 Insulin Aspart [NovoLOG Flexpen] 21 units SQ BID 09/09/18 10/18/18 Methocarbamol [Robaxin-750] 750 mg PO TID PRN 09/09/18 10/18/18 Promethazine 6.25MG/5Ml [Phenergan 6.25 mg PO Q6H PRN 09/11/18 10/18/18 Syrup] Acetaminophen Tab [Tylenol] 1,000 mg PO Q6HR PRN 10/08/18 10/18/18 Cranberry 300mg 300 mg PO BID 10/08/18 10/18/18 Ferrous Sulfate [Iron (65 MG 325 mg PO DAILY 10/08/18 10/18/18 Elemental)] Folic Acid 0.4 mg PO DAILY 10/08/18 10/18/18 L.acidoph,Paracasei, B.lactis 2 cap PO BID 10/08/18 10/18/18 [Probiotic] Melatonin 5 mg PO HS PRN 10/08/18 10/18/18 Multivitamins, Thera Liquid 30 ml PO DAILY 10/08/18 10/18/18 [Theragran Liquid (formulary)] Potassium 99 mg PO DAILY 10/08/18 10/18/18 Prochlorperazine [Compazine] 10 mg PO Q8H PRN 10/08/18 10/18/18 Sertraline [Zoloft] 50 mg PO DAILY 10/08/18 10/18/18 Thiamine [Vitamin B-1] 100 mg PO DAILY 10/08/18 10/18/18 Vitamin B-Complex Drops 1 drop PO BID 10/08/18 10/18/18 Sertraline [Zoloft] 1 tab PO DAILY 10/18/18 10/18/18 Previous Rx's Medication Instructions Recorded Aspirin 81 mg PO DAILY #0 07/02/18 Lisinopril 30 mg PO DAILY #30 tab 10/15/18 Allergies Allergy/AdvReac Type Severity Reaction Status Date / Time butorphanol tartrate Allergy BLISTERS Verified 11/04/18 11:33 [From Stadol] IN MOUTH ceftriaxone [From Rocephin] Allergy Unknown Verified 11/04/18 11:33 clarithromycin [From Biaxin] Allergy Rash/Hives Verified 11/04/18 11:33 codeine Allergy Rash/Hives Verified 11/04/18 11:33 ergotamine tartrate Allergy Unknown Verified 11/04/18 11:33 [From Cafergot] erythromycin base Allergy RASH, GI Verified 11/04/18 11:33 [From E-Mycin] SYMPTOMS ketorolac tromethamine Allergy Rash/Hives Verified 11/04/18 11:33 [From Toradol] liraglutide [From Victoza] Allergy Rash/Hives Verified 11/04/18 11:33 monosodium glutamate [MSG] Allergy Nausea & Verified 11/04/18 11:33 Vomiting morphine Allergy Rash/Hives Verified 11/04/18 11:33 nalbuphine HCl [From Nubain] Allergy Nausea & Verified 11/04/18 11:33 Vomiting Penicillins Allergy Rash/Hives Verified 11/04/18 11:33 pentazocine lactate Allergy SEVERE Verified 11/04/18 11:33 [From Talwin] BLISTERS IN MOUTH pregabalin [From Lyrica] Allergy Rash/Hives Verified 11/04/18 11:33 propoxyphene HCl Allergy Rash/Hives Verified 11/04/18 11:33 [From Darvon] Sulfa (Sulfonamide Allergy Rash/Hives Verified 11/04/18 11:33 Antibiotics) tramadol Allergy Unknown Verified 11/04/18 11:33 Review of Systems ROS Statement: Those systems with pertinent positive or pertinent negative responses have been documented in the HPI. ROS Other: All systems not noted in ROS Statement are negative. 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,DVT R calf in 1976, cardiac murmur.occipital neuraligia, currently being evaluated for hyperparathyroidism History of Any Multi-Drug Resistant Organisms: MRSA Date of last positivie culture/infection: 2012 MDRO Source:: 4th rt toe Past Surgical History: Appendectomy, Back Surgery, Bladder Surgery, Breast Surgery, Cholecystectomy, Hysterectomy, Orthopedic Surgery, Tonsillectomy Additional Past Surgical History / Comment(s): Lumbar fusions, bladder suspensi on, occipital nerve blocks, 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 Past Anesthesia/Blood Transfusion Reactions: Motion Sickness Additional Past Anesthesia/Blood Transfusion Reaction / Comment(s): never recieved blood Past Psychological History: No Psychological Hx Reported Smoking Status: Never smoker Past Alcohol Use History: None Reported Past Drug Use History: None Reported - Past Family History Father Family Medical History: Coronary Artery Disease (CAD), CVA/TIA, Diabetes Mellitus, Myocardial Infarction ([place]), Pneumonia Additional Family Medical History / Comment(s): ather at the age of 78yrs from [place] and pneumonia. Mother Family Medical History: Cancer Additional Family Medical History / Comment(s): Mother had uterine cancer. She is 96yrs old. General Exam Limitations: no limitations General appearance: alert, in no apparent distress Head exam: Present: atraumatic, normocephalic, normal inspection Eye exam: Present: normal appearance, PERRL, EOMI. Absent: scleral icterus, conjunctival injection, periorbital swelling ENT exam: Present: normal exam, mucous membranes moist Neck exam: Present: normal inspection, full ROM. Absent: tenderness, meningismus, lymphadenopathy Respiratory exam: Present: normal lung sounds bilaterally. Absent: respiratory distress, wheezes, rales, rhonchi, stridor Cardiovascular Exam: Present: regular rate, normal rhythm, normal heart sounds. Absent: systolic murmur, diastolic murmur, rubs, gallop, clicks GI/Abdominal exam: Present: soft, normal bowel sounds. Absent: distended, tenderness, guarding, rebound, rigid Neurological exam: Present: alert, oriented X3, CN II-XII intact, other (GCS 15) Psychiatric exam: Present: normal affect, normal mood Course Vital Signs 11/04/18 11/04/18 11:31 13:45 Temperature 98.0 F Pulse Rate 66 68 Respiratory 18 16 Rate Blood Pressure 161/90 150/95 O2 Sat by Pulse 97 95 Oximetry Medical Decision Making - Medical Decision Making 58 old female presents to the emergency department for chief when of headache. Patient has had a headache for the past few days but states this headache has happened multiple times before. Has a history of migraines as well as occipital neuralgia which she states causes these headaches. Also associated with nausea and vomiting which is normal for her. Patient states she is here for pain medication. CBC and CMP are unremarkable. Total bilirubin 1.5 which is patient's baseline. Calcium 10.8 which seems improved. Patient also requesting Solu-Cortef as she feels she needs this with her adrenal insufficiency as sometimes this worsens her symptoms. Patient will be given this IV. Patient reevaluated, feeling much better. States she feels ready to go home and now has an appetite. States he'll be stopping the effort on the way home. Patient will return here she has any worsening symptoms and follow up with primary care in 1- 2 days otherwise. - Lab Data Result diagrams: 11/04/18 12:46 11/04/18 12:46 Lab Results 11/04/18 11/04/18 Range/Units 12:46 12:46 WBC 8.3 (3.8-10.6) k/uL RBC 4.98 (3.80-5.40) m/uL Hgb 13.8 (11.4-16.0) gm/dL Hct 43.2 (34.0-46.0) % MCV 86.7 (80.0-100.0) fL MCH 27.8 (25.0-35.0) pg MCHC 32.0 (31.0-37.0) g/dL RDW 14.7 (11.5-15.5) % Plt Count 309 (150-450) k/uL Neutrophils % 73 % Lymphocytes % 16 % Monocytes % 6 % Eosinophils % 3 % Basophils % 1 % Neutrophils # 6.0 (1.3-7.7) k/uL Lymphocytes # 1.3 (1.0-4.8) k/uL Monocytes # 0.5 (0-1.0) k/uL Eosinophils # 0.3 (0-0.7) k/uL Basophils # 0.0 (0-0.2) k/uL Sodium 137 (137-145) mmol/L Potassium 5.0 (3.5-5.1) mmol/L Chloride 102 (98-107) mmol/L Carbon Dioxide 28 (22-30) mmol/L Anion Gap 7 mmol/L BUN 16 (7-17) mg/dL Creatinine 0.54 (0.52-1.04) mg/dL Est GFR (CKD-EPI)AfAm >90 (>60 ml/min/1.73 sqM) Est GFR (CKD-EPI)NonAf >90 (>60 ml/min/1.73 sqM) Glucose 184 H (74-99) mg/dL Calcium 10.8 H (8.4-10.2) mg/dL Total Bilirubin 1.5 H (0.2-1.3) mg/dL AST 31 (14-36) U/L ALT 18 (9-52) U/L Alkaline Phosphatase 59 (38-126) U/L Total Protein 6.7 (6.3-8.2) g/dL Albumin 4.2 (3.5-5.0) g/dL Disposition Clinical Impression: Headache, Nausea Disposition: HOME SELF-CARE Condition: Good Instructions (If sedation given, give patient instructions): Acute Headache (ED) Additional Instructions: Please follow up with primary care in 1-2 days. Please return here to the emergency department if you have any worsening symptoms. Is patient prescribed a controlled substance at d/c from ED?: No Referrals: Allyson Guardado MD [Primary Care Provider] - 1-2 days Time of Disposition: 14:27
[2018-11-04 14:33] VITALS: PULSE 59; TEMP 98.9
== END 2018-11-04 14:41 | disposition home or self-care (01) ==
LOC: EC 11:30
DX: G43.909 Migraine, unspecified, not intractable, without status migrainosus (principal); R11.0 Nausea; M54.81 Occipital neuralgia; E27.40 Unspecified adrenocortical insufficiency; E78.5 Hyperlipidemia, unspecified; G47.33 Obstructive sleep apnea (adult) (pediatric); E11.9 Type 2 diabetes mellitus without complications; I10 Essential (primary) hypertension; J44.9 Chronic obstructive pulmonary disease, unspecified; Z79.4 Long term (current) use of insulin; Z79.899 Other long term (current) drug therapy; Z88.1 Allergy status to other antibiotic agents; Z88.5 Allergy status to narcotic agent; Z88.0 Allergy status to penicillin; Z88.2 Allergy status to sulfonamides; Z88.8 Allergy status to other drugs, medicaments and biological substances; Z86.718 Personal history of other venous thrombosis and embolism; Z89.421 Acquired absence of other right toe(s)
CPT/HCPCS: 36415; 80053; 85025; 99283; 96374; 96375 ×3; 96361; J1200; J2765; J1720; J1170

== ENCOUNTER 2018-11-08 17:31 | Emergency (ER) | payer MEDICARE, BC ==
[2018-11-08 18:05] VITALS: PULSE 73
[2018-11-08] MEDS ORDERED: HYDROmorphone 0.5 MG/0.5 ML SYRINGE IM STA (19:44)
[2018-11-08 19:57] LABS: Appearance,Urine Clear (Clear); Bilirubin,Urine Negative (Negative); Blood,Urine Negative (Negative); Color,Urine Light Red; Glucose,Urine (UA) 4+ (Negative); Leukocyte Esterase,Urine Negative (Negative); Nitrite,Urine Negative (Negative); PH, Urine 5.5 (5.0-8.0); Protein,Urine Trace (Negative); Specific Gravity,Urine 1.035 (1.001-1.035)
[2018-11-08 19:59] LABS: Ketones,Urine 2+ (Negative)
[2018-11-08] MEDS ORDERED: SODIUM CHLORIDE 0.9% 1,000 ML IV STA (20:09)
[2018-11-08] MEDS ORDERED: METOCLOPRAMIDE 5 MG/ML 2 ML VIAL IVP STA (20:09)
[2018-11-08 20:34] LABS: Basophils % (A) 1 %; Eosinophils # (A) 0.1 k/uL (0-0.7); Eosinophils % (A) 1 %; HCT 44.8 % (34.0-46.0); HGB 13.9 gm/dL (11.4-16.0); Lymphocytes # (A) 1.6 k/uL (1.0-4.8); Lymphocytes % (A) 18 %; MCH 26.8 pg (25.0-35.0); MCV 86.4 fL (80.0-100.0); Mean Platelet Volume 8.1; Monocytes # (A) 0.5 k/uL (0-1.0); Monocytes % (A) 6 %; Neutrophils # (A) 6.4 k/uL (1.3-7.7); Neutrophils % (A) 74 %; Platelet Count 317 k/uL (150-450); RBC 5.18 m/uL (3.80-5.40); RDW 14.8 % (11.5-15.5); WBC 8.7 k/uL (3.8-10.6)
[2018-11-08 20:36] LABS: ALT 16 U/L (9-52); AST 26 U/L (14-36); Albumin 4.3 g/dL (3.5-5.0); Alkaline Phosphatase 73 U/L (38-126); Anion Gap 10 mmol/L; Blood Urea Nitrogen 21 mg/dL (7-17); Calcium 10.8 mg/dL (8.4-10.2); Carbon Dioxide 25 mmol/L (22-30); Chloride 102 mmol/L (98-107); Glucose 244 mg/dL (74-99); Sodium 137 mmol/L (137-145); Total Bilirubin 1.2 mg/dL (0.2-1.3); Total Protein 6.7 g/dL (6.3-8.2)
[2018-11-08 20:38] LABS: Potassium 4.6 mmol/L (3.5-5.1)
[2018-11-08] MEDS ORDERED: HYDROmorphone 0.5 MG/0.5 ML SYRINGE IVP STA (20:55)
--- NOTE | 2018-11-08 21:56 | ED ---
General Adult HPI - General Chief complaint: Headache Stated complaint: Headache, UTI Time Seen by Provider: 11/08/18 19:01 Source: patient, RN notes reviewed, old records reviewed Mode of arrival: wheelchair Limitations: no limitations - History of Present Illness Initial comments: 68-year-old female patient past medical history of type 2 diabetes, hypert ension, headache disorder, frequent UTIs presents to ED for 2 complaints. Patient primary complaint is waxing and waning headaches for approximately 4 days. Patient states that this is located occipital lobe. Patient states this feels similar headache she has experienced in the past. Denies thunderclap headache, worst headache of life. Denies any recent falls or trauma. Denies any change in vision. Patient has significant complaint of frequent urination. Patient is currently being treated with a antibiotic for a urinary tract infection. Patient denies any other complaints. Systemic: Pt denies fatigue, myalgia, fever/chills, rash. Pt denies weakness, night sweats, weight loss. Neuro: Pt denies headache, visual disturbances, syncope or pre-syncope. HEENT: Pt denies ocular discharge or irritation, otalgia, rhinorrhea, pharyngitis or notable lymphadenopathy. Cardiopulmonary: Pt denies chest pain, SOB, heart palpitations, dyspnea on exertion. Abdominal/GI: Pt denies abdominal pain, n/v/d. : Pt denies dysuria, burning w/ urination. Denies new onset urinary or bowel incontinence. MSK: Pt denies myalgia, loss of strength or function in extremities. Neuro: Pt denies new onset weakness, paresthesias. - Related Data Home Medications Medication Instructions Recorded Confirmed Atorvastatin Calcium [Lipitor] 20 mg PO HS 12/01/14 11/08/18 Cholecalciferol [Vitamin D3 (25 3,000 unit PO DAILY@0700 12/01/14 11/08/18 Mcg = 1000 Iu)] Ondansetron [Zofran] 4 mg PO Q6H PRN 10/12/15 11/08/18 HYDROcodone/APAP 10-325MG [[place] 1 - 2 tab PO Q4-6H PRN 07/06/17 11/08/18 10-325] Metoprolol Succinate (ER) [Toprol 50 mg PO HS 07/06/17 11/08/18 XL] Meclizine [Antivert] 25 mg PO QID PRN 11/26/17 11/08/18 Magnesium Oxide 400 mg PO QAM 02/26/18 11/08/18 Pantoprazole [Protonix] 40 mg PO BID 02/26/18 11/08/18 Hydrocortisone [Cortef] 10 mg PO AC-LUNCH 05/18/18 11/08/18 Hydrocortisone [Cortef] 15 mg PO AC-BRKFST 05/18/18 11/08/18 Insulin Glargine,Hum.rec.anlog 32 units SQ HS@2200 05/18/18 11/08/18 [Lantus Solostar] Hydrocortisone [Cortef] 5 mg PO HS 06/26/18 11/08/18 Budesonide [Pulmicort Flexhaler] 1 puff INHALATION RT-BID PRN 08/12/18 11/08/18 Glucagon Emergency Kit 1 mg IM ONCE PRN 08/12/18 11/08/18 Insulin Aspart [NovoLOG Flexpen] 20 units SQ -KT 09/09/18 11/08/18 Insulin Aspart [NovoLOG Flexpen] 21 units SQ BID 09/09/18 11/08/18 Methocarbamol [Robaxin-750] 750 mg PO TID PRN 09/09/18 11/08/18 Promethazine 6.25MG/5Ml [Phenergan 6.25 mg PO Q6H PRN 09/11/18 11/08/18 Syrup] Acetaminophen Tab [Tylenol] 1,000 mg PO Q6HR PRN 10/08/18 11/08/18 Cranberry 300mg 300 mg PO BID 10/08/18 11/08/18 Ferrous Sulfate [Iron (65 MG 325 mg PO DAILY 10/08/18 11/08/18 Elemental)] Folic Acid 0.4 mg PO DAILY 10/08/18 11/08/18 L.acidoph,Paracasei, B.lactis 2 cap PO BID 10/08/18 11/08/18 [Probiotic] Melatonin 5 mg PO HS PRN 10/08/18 11/08/18 Multivitamins, Thera Liquid 30 ml PO DAILY 10/08/18 11/08/18 [Theragran Liquid (formulary)] Potassium 99 mg PO DAILY 10/08/18 11/08/18 Prochlorperazine [Compazine] 10 mg PO Q8H PRN 10/08/18 11/08/18 Sertraline [Zoloft] 50 mg PO DAILY 10/08/18 11/08/18 Thiamine [Vitamin B-1] 100 mg PO DAILY 10/08/18 11/08/18 Vitamin B-Complex Drops 1 drop PO BID 10/08/18 11/08/18 Lisinopril [Zestril] 10 mg PO DAILY 11/08/18 11/08/18 Previous Rx's Medication Instructions Recorded Aspirin 81 mg PO DAILY #0 07/02/18 Allergies Allergy/AdvReac Type Severity Reaction Status Date / Time butorphanol tartrate Allergy BLISTERS Verified 11/08/18 19:09 [From Stadol] IN MOUTH ceftriaxone [From Rocephin] Allergy Unknown Verified 11/08/18 19:09 clarithromycin [From Biaxin] Allergy Rash/Hives Verified 11/08/18 19:09 codeine Allergy Rash/Hives Verified 11/08/18 19:09 ergotamine tartrate Allergy Unknown Verified 11/08/18 19:09 [From Cafergot] erythromycin base Allergy RASH, GI Verified 11/08/18 19:09 [From E-Mycin] SYMPTOMS ketorolac tromethamine Allergy Rash/Hives Verified 11/08/18 19:09 [From Toradol] liraglutide [From Victoza] Allergy Rash/Hives Verified 11/08/18 19:09 monosodium glutamate [MSG] Allergy Nausea & Verified 11/08/18 19:09 Vomiting morphine Allergy Rash/Hives Verified 11/08/18 19:09 nalbuphine HCl [From Nubain] Allergy Nausea & Verified 11/08/18 19:09 Vomiting Penicillins Allergy Rash/Hives Verified 11/08/18 19:09 pentazocine lactate Allergy SEVERE Verified 11/08/18 18:05 [From Talwin] BLISTERS IN MOUTH pregabalin [From Lyrica] Allergy Rash/Hives Verified 11/08/18 19:09 propoxyphene HCl Allergy Rash/Hives Verified 11/08/18 19:09 [From Darvon] Sulfa (Sulfonamide Allergy Rash/Hives Verified 11/08/18 19:09 Antibiotics) tramadol Allergy Unknown Verified 11/08/18 19:09 Review of Systems ROS Statement: Those systems with pertinent positive or pertinent negative responses have been documented in the HPI. ROS Other: All systems not noted in ROS Statement are negative. 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,DVT R calf in 1976, cardiac murmur.occipital neuraligia, constipation History of Any Multi-Drug Resistant Organisms: MRSA Date of last positivie culture/infection: 2010 MDRO Source:: 4th rt toe Past Surgical History: Appendectomy, Back Surgery, Bladder Surgery, Breast Surgery, Cholecystectomy, Hysterectomy, Orthopedic Surgery, Tonsillectomy Additional Past Surgical History / Comment(s): Lumbar fusions, bladder suspension, occipital nerve blocks, 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 Past Anesthesia/Blood Transfusion Reactions: Motion Sickness Additional Past Anesthesia/Blood Transfusion Reaction / Comment(s): never reciev ed blood Past Psychological History: No Psychological Hx Reported Smoking Status: Never smoker Past Alcohol Use History: Occasional Past Drug Use History: None Reported - Past Family History Father Family Medical History: Coronary Artery Disease (CAD), CVA/TIA, Diabetes Mellitus, Myocardial Infarction ([place]), Pneumonia Additional Family Medical History / Comment(s): ather at the age of 78yrs from [place] and pneumonia. Mother Family Medical History: Cancer Additional Family Medical History / Comment(s): Mother had uterine cancer. She is 96yrs old. General Exam - General Exam Comments Initial Comments: Constitutional: NAD, AOX3, Pt has pleasant affect. HEENT: NC/AT, trachea midline, neck supple, no lymphadenopathy. Posterior pharynx non erythematous, without exudates. External ears appear normal, without discharge. Mucous membranes moist. Eyes PERRLA, EOM intact. There is no scleral icterus. No pallor noted. Cardiopulmonary: RRR, no murmurs, rubs or gallops, no JVD noted. Lungs CTAB in anterior and posterior hinds. No peripheral edema. Abdominal exam: Abdomen soft and non-distended. Abdomen non-tender to palpation in all 4 quadrants. Bowel sounds active in LLQ. No hepatosplenomegaly. No ecchymosis Neuro: CN II-XII intact. No nuchal rigidity. No focal deficit of facial droop. MSK: No posterior calf tenderness bilaterally, homans sign negative bilaterally. Posterior tibialis and radial pulse +2 bilaterally. Sensation intact in upper and lower extremities. Full active ROM in upper and lower extremities, 5/5 stregnth. Limitations: no limitations Course Vital Signs 11/08/18 11/08/18 11/08/18 18:01 20:24 20:30 Temperature 98.3 F Pulse Rate 73 Respiratory 20 Rate Blood Pressure 152/93 155/90 155/90 O2 Sat by Pulse 94 L 94 L 96 Oximetry 11/08/18 11/08/18 11/08/18 20:40 21:10 21:40 Temperature 98.1 F Pulse Rate 73 Respiratory 16 17 Rate Blood Pressure 161/98 148/97 143/70 O2 Sat by Pulse 94 L 88 L 92 L Oximetry Medical Decision Making - Medical Decision Making 68-year-old female patient past medical history of type 2 diabetes, hypertension, headache disorder, frequent UTIs presents to ED for 2 complaints. Patient primary complaint is waxing and waning headaches for approximately 4 days. Patient states that this is located occipital lobe. Patient states this feels similar headache she has experienced in the past. Denies thunderclap head ache, worst headache of life. Denies any recent falls or trauma. Denies any change in vision. Patient has significant complaint of frequent urination. Patient is currently being treated with a antibiotic for a urinary tract infection. Patient denies any other complaints. Pt VSS, afebrile. Physical exam displayed: CN II-XII intact. No nuchal rigidity. No focal deficit of facial droop. Laboratory investigations were none present. Glucose mildly elevated 244. UA displayed +4 glucose and +2 ketones. Acetone negative. Patient headache resolved. Shared decision making patient comfortable with no imaging due to radiation burden. Patient discharged with follow-up with primary care provider in 1-2 days. Patient will continue antibiotic. Patient will return to ED if condition worsens. Case discussed with Dr. Lawrence. - Lab Data Result diagrams: 11/08/18 19:34 11/08/18 19:34 Lab Results 11/08/18 11/08/18 11/08/18 Range/Units 19:16 19:34 19:34 WBC 8.7 (3.8-10.6) k/uL RBC 5.18 (3.80-5.40) m/uL Hgb 13.9 (11.4-16.0) gm/dL Hct 44.8 (34.0-46.0) % MCV 86.4 (80.0-100.0) fL MCH 26.8 (25.0-35.0) pg MCHC 31.0 (31.0-37.0) g/dL RDW 14.8 (11.5-15.5) % Plt Count 317 (150-450) k/uL Neutrophils % 74 % Lymphocytes % 18 % Monocytes % 6 % Eosinophils % 1 % Basophils % 1 % Neutrophils # 6.4 (1.3-7.7) k/uL Lymphocytes # 1.6 (1.0-4.8) k/uL Monocytes # 0.5 (0-1.0) k/uL Eosinophils # 0.1 (0-0.7) k/uL Basophils # 0.0 (0-0.2) k/uL Sodium 137 (137-145) mmol/L Potassium 4.6 (3.5-5.1) mmol/L Chloride 102 (98-107) mmol/L Carbon Dioxide 25 (22-30) mmol/L Anion Gap 10 mmol/L BUN 21 H (7-17) mg/dL Creatinine 0.57 (0.52-1.04) mg/dL Est GFR (CKD-EPI)AfAm >90 (>60 ml/min/1.73 sqM) Est GFR (CKD-EPI)NonAf >90 (>60 ml/min/1.73 sqM) Glucose 244 H (74-99) mg/dL Calcium 10.8 H (8.4-10.2) mg/dL Total Bilirubin 1.2 (0.2-1.3) mg/dL AST 26 (14-36) U/L ALT 16 (9-52) U/L Alkaline Phosphatase 73 (38-126) U/L Total Protein 6.7 (6.3-8.2) g/dL Albumin 4.3 (3.5-5.0) g/dL Urine Color Light Red Urine Appearance Clear (Clear) Urine pH 5.5 (5.0-8.0) Ur Specific [place] 1.035 (1.001-1.035) Urine Protein Trace H (Negative) Urine Glucose (UA) 4+ H (Negative) Urine Ketones 2+ H (Negative) Urine Blood Negative (Negative) Urine Nitrite Negative (Negative) Urine Bilirubin Negative (Negative) Urine Urobilinogen 2.0 (<2.0) mg/dL Ur Leukocyte Esterase Negative (Negative) Acetone, Qual Negative (Negative) Disposition Clinical Impression: Headache Disposition: HOME SELF-CARE Condition: Stable Instructions (If sedation given, give patient instructions): Acute Headache (ED) Additional Instructions: Patient to adhere to previously discussed treatment plan and will take medication(s) as directed. Patient to follow up with PCP in 1-2 days. Patient to return to ED if symptoms do not improve. Follow-up with primary care provider in 1-2 days. Return to ER if condition worsens in any way. Is patient prescribed a controlled substance at d/c from ED?: No Referrals: Allyson Guardado MD [Primary Care Provider] - 1-2 days
[2018-11-08 22:04] VITALS: BP 143/70; RESP 17; TEMP 98.1
== END 2018-11-08 22:07 | disposition home or self-care (01) ==
LOC: EC 17:31
DX: E11.65 Type 2 diabetes mellitus with hyperglycemia (principal); I10 Essential (primary) hypertension; G47.33 Obstructive sleep apnea (adult) (pediatric); Z99.89 Dependence on other enabling machines and devices; Z87.440 Personal history of urinary (tract) infections; Z86.14 Personal history of Methicillin resistant Staphylococcus aureus infection; Z90.49 Acquired absence of other specified parts of digestive tract; Z90.710 Acquired absence of both cervix and uterus; Z79.52 Long term (current) use of systemic steroids; Z79.4 Long term (current) use of insulin; Z79.899 Other long term (current) drug therapy; Z88.5 Allergy status to narcotic agent; Z88.1 Allergy status to other antibiotic agents; Z88.8 Allergy status to other drugs, medicaments and biological substances; Z88.6 Allergy status to analgesic agent; Z88.0 Allergy status to penicillin; Z88.2 Allergy status to sulfonamides
CPT/HCPCS: 99284; 96374; 96375; 96361; 96372; 36415; 80053; 82009; 85025; 81003; J2765; J1170

== ENCOUNTER 2018-11-09 18:45 | Inpatient (IN) | payer MEDICARE, BC ==
[2018-11-09] MEDS ORDERED: ASPIRIN 81 MG PO STA (18:58)
--- NOTE | 2018-11-09 19:32 | ED ---
General Adult HPI - General Chief complaint: Chest Pain Stated complaint: CHEST PAIN Time Seen by Provider: 11/09/18 18:49 Source: patient, EMS Mode of arrival: EMS Limitations: no limitations - History of Present Illness Initial comments: Dictation was produced using [employer] dictation software. please excuse any grammatical, word or spelling errors. Chief Complaint: 68-year-old female past medical history of deep venous e cchymosis, renal disease presents with chest pain. History of Present Illness: Patient is 68-year-old female. She patient states she was experiencing left substernal chest pain/pressure prior to coming to the emergency department. She states the pain was severe with radiation to the right jaw. She does report some shortness of breath associated with it. Positive diaphoresis. EMS was called. Upon initial evaluation EKG was performed showing lateral T-wave inversions. She is given 3 sublingual nitroglycerin with repeat EKG performed by EMS showing improvement of T-wave inversions in the lateral leads. Patient denies any cardiac disease however did report having cardiac workup done in the hospital by Dr. Rosenberg. Patient states her pain is a lot milder after the sublingual nitro however still present. The ROS documented in this emergency department record has been reviewed and confirmed by me. Those systems with pertinent positive or negative responses have been documented in the HPI. All other systems are other negative and/or noncontributory. PHYSICAL EXAM: General Impression: Alert and oriented x3, not in acute distress HEENT: Normocephalic atraumatic, extra-ocular movements intact, pupils equal and reactive to light bilaterally, mucous membranes moist. Cardiovascular: Heart regular rate and rhythm, S1&S2 audible, no murmurs, rubs or gallops Chest: Lungs clear to auscultation bilaterally, no rhonchi, no wheeze, no rales Abdomen: Bowel sounds present, abdomen soft, non-tender, non-distended, no organomegaly Musculoskeletal: Pulses present and equal in all extremities, no peripheral edema Motor: no focal deficits noted Neurological: CN II-XII grossly intact, no focal motor or sensory deficits noted Skin: Intact with no visualized rashes Psych: Normal affect and mood ED course: 68-year-old female presents with chest pain concerning for acute coronary syndrome. EKG does show signs of ischemia with T-wave inversions on the lateral precordial leads that are not present on EKG from 10/08/2018. All signs upon arrival shows findings within acceptable limits. Laboratory evaluation obtained. CBC, coag panel, metabolic panel was obtained showing no acute processes. Cardiac enzymes are negative. Prematurity peptide is unremarkable. Chest x-ray is nonacute. Patient given aspirin. Nitro paste and heparin was applied. Clinical presentation is concerning for unstable angina. Patient discussed with Dr. Ramos who is willing to accept admission.. Cardiology consultation. EKG interpretation: Ventricular rate 70, normal sinus rhythm,. Interval 140, QS 90, QTc 444. No HI prolongation, no QTC prolongation, lateral precordial lead T- wave inversions. - Related Data Home Medications Medication Instructions Recorded Confirmed Atorvastatin Calcium [Lipitor] 20 mg PO HS 12/01/14 11/09/18 Cholecalciferol [Vitamin D3 (25 3,000 unit PO DAILY@0700 12/01/14 11/09/18 Mcg = 1000 Iu)] Ondansetron [Zofran] 4 mg PO Q6H PRN 10/12/15 11/09/18 HYDROcodone/APAP 10-325MG [[place] 1 - 2 tab PO Q4-6H PRN 07/06/17 11/09/18 10-325] Metoprolol Succinate (ER) [Toprol 50 mg PO HS 07/06/17 11/09/18 XL] Meclizine [Antivert] 25 mg PO QID PRN 11/26/17 11/09/18 Magnesium Oxide 400 mg PO QAM 02/26/18 11/09/18 Pantoprazole [Protonix] 40 mg PO BID 02/26/18 11/09/18 Hydrocortisone [Cortef] 10 mg PO AC-LUNCH 05/18/18 11/09/18 Hydrocortisone [Cortef] 15 mg PO AC-BRKFST 05/18/18 11/09/18 Insulin Glargine,Hum.rec.anlog 32 units SQ HS@2200 05/18/18 11/09/18 [Lantus Solostar] Hydrocortisone [Cortef] 5 mg PO HS 06/26/18 11/09/18 Budesonide [Pulmicort Flexhaler] 1 puff INHALATION RT-BID PRN 08/12/18 11/09/18 Glucagon Emergency Kit 1 mg IM ONCE PRN 08/12/18 11/09/18 Insulin Aspart [NovoLOG Flexpen] 20 units SQ AC-BRKFST 09/09/18 11/09/18 Insulin Aspart [NovoLOG Flexpen] 21 units SQ BID 09/09/18 11/09/18 Methocarbamol [Robaxin-750] 750 mg PO TID PRN 09/09/18 11/09/18 Promethazine 6.25MG/5Ml [Phenergan 6.25 mg PO Q6H PRN 09/11/18 11/09/18 Syrup] Acetaminophen Tab [Tylenol] 1,000 mg PO Q6HR PRN 10/08/18 11/09/18 Cranberry 300mg 300 mg PO BID 10/08/18 11/09/18 Ferrous Sulfate [Iron (65 MG 325 mg PO DAILY 10/08/18 11/09/18 Elemental)] Folic Acid 0.4 mg PO DAILY 10/08/18 11/09/18 L.acidoph,Paracasei, B.lactis 2 cap PO BID 10/08/18 11/09/18 [Probiotic] Melatonin 5 mg PO HS PRN 10/08/18 11/09/18 Multivitamins, Thera Liquid 30 ml PO DAILY 10/08/18 11/09/18 [Theragran Liquid (formulary)] Potassium 99 mg PO DAILY 10/08/18 11/09/18 Prochlorperazine [Compazine] 10 mg PO Q8H PRN 10/08/18 11/09/18 Sertraline [Zoloft] 50 mg PO DAILY 10/08/18 11/09/18 Thiamine [Vitamin B-1] 100 mg PO DAILY 10/08/18 11/09/18 Vitamin B-Complex Drops 1 drop PO BID 10/08/18 11/09/18 Lisinopril [Zestril] 10 mg PO DAILY 11/08/18 11/09/18 Previous Rx's Medication Instructions Recorded Aspirin 81 mg PO DAILY #0 07/02/18 Allergies Allergy/AdvReac Type Severity Reaction Status Date / Time butorphanol tartrate Allergy BLISTERS Verified 11/09/18 19:06 [From Stadol] IN MOUTH ceftriaxone [From Rocephin] Allergy Unknown Verified 11/09/18 19:06 clarithromycin [From Biaxin] Allergy Rash/Hives Verified 11/09/18 19:06 codeine Allergy Rash/Hives Verified 11/09/18 19:06 ergotamine tartrate Allergy Unknown Verified 11/09/18 19:06 [From Cafergot] erythromycin base Allergy RASH, GI Verified 11/09/18 19:06 [From E-Mycin] SYMPTOMS ketorolac tromethamine Allergy Rash/Hives Verified 11/09/18 19:06 [From Toradol] liraglutide [From Victoza] Allergy Rash/Hives Verified 11/09/18 19:06 monosodium glutamate [MSG] Allergy Nausea & Verified 11/09/18 19:06 Vomiting morphine Allergy Rash/Hives Verified 11/09/18 19:06 nalbuphine HCl [From Nubain] Allergy Nausea & Verified 11/09/18 19:06 Vomiting Penicillins Allergy Rash/Hives Verified 11/09/18 19:06 pentazocine lactate Allergy SEVERE Verified 11/09/18 19:06 [From Talwin] BLISTERS IN MOUTH pregabalin [From Lyrica] Allergy Rash/Hives Verified 11/09/18 19:06 propoxyphene HCl Allergy Rash/Hives Verified 11/09/18 19:06 [From Darvon] Sulfa (Sulfonamide Allergy Rash/Hives Verified 11/09/18 19:06 Antibiotics) tramadol Allergy Unknown Verified 11/09/18 19:06 Review of Systems ROS Statement: Those systems with pertinent positive or pertinent negative responses have been documented in the HPI. ROS Other: All systems not noted in ROS Statement are negative. 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,DVT R calf in 1976, cardiac murmur.occipital neuraligia, constipation History of Any Multi-Drug Resistant Organisms: MRSA Date of last positivie culture/infection: 2010 MDRO Source:: 4th rt toe Past Surgical History: Appendectomy, Back Surgery, Bladder Surgery, Breast Surgery, Cholecystectomy, Hysterectomy, Orthopedic Surgery, Tonsillectomy Additional Past Surgical History / Comment(s): Lumbar fusions, bladder suspension, occipital nerve blocks, 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 Past Anesthesia/Blood Transfusion Reactions: Motion Sickness Additional Past Anesthesia/Blood Transfusion Reaction / Comment(s): never recieved blood Past Psychological History: No Psychological Hx Reported Smoking Status: Never smoker Past Alcohol Use History: Occasional Past Drug Use History: None Reported - Past Family History Father Family Medical History: Coronary Artery Disease (CAD), CVA/TIA, Diabetes M ellitus, Myocardial Infarction ([place]), Pneumonia Additional Family Medical History / Comment(s): ather at the age of 78yrs from [place] and pneumonia. Mother Family Medical History: Cancer Additional Family Medical History / Comment(s): Mother had uterine cancer. She is 96yrs old. General Exam Limitations: no limitations Course Vital Signs 11/09/18 11/09/18 11/09/18 18:58 21:00 21:30 Temperature 98.1 F Pulse Rate 84 78 75 Respiratory 18 18 12 Rate Blood Pressure 154/106 166/83 143/90 O2 Sat by Pulse 94 L 94 L 94 L Oximetry Medical Decision Making - Lab Data Result diagrams: 11/09/18 19:40 11/09/18 18:58 Lab Results 11/09/18 11/09/18 11/09/18 Range/Units 18:58 18:58 18:58 WBC (3.8-10.6) k/uL RBC (3.80-5.40) m/uL Hgb (11.4-16.0) gm/dL Hct (34.0-46.0) % MCV (80.0-100.0) fL MCH (25.0-35.0) pg MCHC (31.0-37.0) g/dL RDW (11.5-15.5) % Plt Count (150-450) k/uL Neutrophils % % Lymphocytes % % Monocytes % % Eosinophils % % Basophils % % Neutrophils # (1.3-7.7) k/uL Lymphocytes # (1.0-4.8) k/uL Monocytes # (0-1.0) k/uL Eosinophils # (0-0.7) k/uL Basophils # (0-0.2) k/uL Hypochromasia Poikilocytosis PT 9.8 (9.0-12.0) sec INR 0.9 (<1.2) APTT 20.1 L (22.0-30.0) sec Sodium 138 (137-145) mmol/L Potassium 3.6 (3.5-5.1) mmol/L Chloride 105 (98-107) mmol/L Carbon Dioxide 26 (22-30) mmol/L Anion Gap 7 mmol/L BUN 14 (7-17) mg/dL Creatinine 0.55 (0.52-1.04) mg/dL Est GFR (CKD-EPI)AfAm >90 (>60 ml/min/1.73 sqM) Est GFR (CKD-EPI)NonAf >90 (>60 ml/min/1.73 sqM) Glucose 202 H (74-99) mg/dL Calcium 10.4 H (8.4-10.2) mg/dL Magnesium 1.9 (1.6-2.3) mg/dL Total Bilirubin 1.1 (0.2-1.3) mg/dL AST 19 (14-36) U/L ALT 18 (9-52) U/L Alkaline Phosphatase 72 (38-126) U/L CK-MB (CK-2) (0.0-2.4) ng/mL Troponin I (0.000-0.034) ng/mL NT-Pro-B Natriuret Pep 741 pg/mL Total Protein 6.0 L (6.3-8.2) g/dL Albumin 3.9 (3.5-5.0) g/dL Lipase 82 (23-300) U/L 11/09/18 11/09/18 Range/Units 18:58 19:40 WBC 6.6 (3.8-10.6) k/uL RBC 4.63 (3.80-5.40) m/uL Hgb 12.9 (11.4-16.0) gm/dL Hct 39.3 (34.0-46.0) % MCV 84.9 (80.0-100.0) fL MCH 28.0 (25.0-35.0) pg MCHC 33.0 (31.0-37.0) g/dL RDW 14.3 (11.5-15.5) % Plt Count 191 (150-450) k/uL Neutrophils % 62 % Lymphocytes % 28 % Monocytes % 7 % Eosinophils % 2 % Basophils % 0 % Neutrophils # 4.0 (1.3-7.7) k/uL Lymphocytes # 1.8 (1.0-4.8) k/uL Monocytes # 0.4 (0-1.0) k/uL Eosinophils # 0.2 (0-0.7) k/uL Basophils # 0.0 (0-0.2) k/uL Hypochromasia Slight Poikilocytosis Slight PT (9.0-12.0) sec INR (<1.2) APTT (22.0-30.0) sec Sodium (137-145) mmol/L Potassium (3.5-5.1) mmol/L Chloride (98-107) mmol/L Carbon Dioxide (22-30) mmol/L Anion Gap mmol/L BUN (7-17) mg/dL Creatinine (0.52-1.04) mg/dL Est GFR (CKD-EPI)AfAm (>60 ml/min/1.73 sqM) Est GFR (CKD-EPI)NonAf (>60 ml/min/1.73 sqM) Glucose (74-99) mg/dL Calcium (8.4-10.2) mg/dL Magnesium (1.6-2.3) mg/dL Total Bilirubin (0.2-1.3) mg/dL AST (14-36) U/L ALT (9-52) U/L Alkaline Phosphatase (38-126) U/L CK-MB (CK-2) 0.6 (0.0-2.4) ng/mL Troponin I <0.012 (0.000-0.034) ng/mL NT-Pro-B Natriuret Pep pg/mL Total Protein (6.3-8.2) g/dL Albumin (3.5-5.0) g/dL Lipase (23-300) U/L Disposition Clinical Impression: Chest pain Disposition: ADMITTED IP TO THIS HOSP Condition: Fair Referrals: Allyson Guardado MD [Primary Care Provider] - 1-2 days Decision Time: 21:45
[2018-11-09] MEDS ORDERED: MORPHINE SULFATE 4 MG/ML SYRINGE IVP STA (19:42)
[2018-11-09 19:54] LABS: Basophils % (A) 0 %; Eosinophils # (A) 0.2 k/uL (0-0.7); Eosinophils % (A) 2 %; HCT 39.3 % (34.0-46.0); HGB 12.9 gm/dL (11.4-16.0); Hypochromasia Slight; Lymphocytes # (A) 1.8 k/uL (1.0-4.8); Lymphocytes % (A) 28 %; MCV 84.9 fL (80.0-100.0); Mean Platelet Volume 9.8; Monocytes # (A) 0.4 k/uL (0-1.0); Monocytes % (A) 7 %; Neutrophils % (A) 62 %; Platelet Count 191 k/uL (150-450); Poikilocytosis Slight; RBC 4.63 m/uL (3.80-5.40); RDW 14.3 % (11.5-15.5); WBC 6.6 k/uL (3.8-10.6)
[2018-11-09] MEDS ORDERED: HYDROmorphone 0.5 MG/0.5 ML SYRINGE IVP STA (19:58)
--- NOTE | 2018-11-09 20:07 | XR ---
EXAMINATION: XR chest 2V DATE AND TIME: 11/09/2018 7:30 PM CLINICAL INDICATION: Dyspnea; Chest Pain TECHNIQUE: Departmental protocol COMPARISON: 10/08/2018 FINDINGS: The lungs are clear and well expanded. The pleural spaces are negative. The cardiac silhouette is moderately enlarged, unchanged. Aortic ectasia redemonstrated. The skeletal structures and soft tissues are negative for acute findings. IMPRESSION: No acute process.
[2018-11-09 20:28] LABS: INR 0.9 (<1.2); Prothrombin Time 9.8 sec (9.0-12.0)
[2018-11-09 20:30] LABS: ALT 18 U/L (9-52); AST 19 U/L (14-36); Albumin 3.9 g/dL (3.5-5.0); Alkaline Phosphatase 72 U/L (38-126); Anion Gap 7 mmol/L; Blood Urea Nitrogen 14 mg/dL (7-17); Calcium 10.4 mg/dL (8.4-10.2); Carbon Dioxide 26 mmol/L (22-30); Chloride 105 mmol/L (98-107); Glucose 202 mg/dL (74-99); Lipase 82 U/L (23-300); Magnesium 1.9 mg/dL (1.6-2.3); Potassium 3.6 mmol/L (3.5-5.1); Sodium 138 mmol/L (137-145); Total Bilirubin 1.1 mg/dL (0.2-1.3)
[2018-11-09 20:31] LABS: Partial Thromboplastin Time 20.1 sec (22.0-30.0)
[2018-11-09 20:47] LABS: Creatine Kinase MB 0.6 ng/mL (0.0-2.4); Troponin I <0.012 ng/mL (0.000-0.034)
[2018-11-09] MEDS ORDERED: HEPARIN SODIUM,PORCINE 5,000 UNIT/ML 1 ML VIAL IV ONE (21:04)
[2018-11-09] MEDS ORDERED: NITROGLYCERIN OINT 1 INCH/GM PACKET TOPICAL STA (21:04)
[2018-11-09] MEDS ORDERED: HEPARIN SODIUM,PORCINE 5,000 UNIT/ML 1 ML VIAL IV PRN (21:04)
[2018-11-09] MEDS ORDERED: HEPARIN SOD,PORK IN 0.45% NACL 25,000 UNIT in 0.45% NACL 1 250ML.BAG IV SCH (21:15)
[2018-11-09] MEDS ORDERED: NITROGLYCERIN SL TABS 0.4 MG TAB SUBLINGUAL PRN (21:40)
[2018-11-09] MEDS ORDERED: MECLIZINE 25 MG TAB PO PRN (22:13)
[2018-11-09] MEDS ORDERED: FLUTICASONE 110 MCG INHALER INHALATION PRN (22:13)
[2018-11-09] MEDS ORDERED: METHOCARBAMOL 750 MG TAB PO PRN (22:13)
[2018-11-09] MEDS ORDERED: MELATONIN 5 MG TABLET PO PRN (22:13)
--- NOTE | 2018-11-09 22:31 | P.HPIM ---
History of Present Illness H&P Date: 11/09/18 Chief Complaint: chest pain 68-year-old female with history of diabetes and hypertension. Patient presents to the hospital due to sudden onset chest pain this morning after waking up from sleep she does not report doing anything out of the ordinary she actually reports that she has been fatigued for a week now and hasn't been doing much. So she denies any physical activity that has precipitated the chest pain. She reports that she was recently in [place] for her mother's and just came back a few days ago. They traveled by car and was an 11 hour trip but they were stopping every few hours to rest and walk around. So she reports sudden onset left-sided chest pain in the morning that radiates to the jaw associated with some nausea and dizziness and shortness of breath but denies any fevers or chills denies any coughing denies any vomiting denies any loss of consciousness denies any sweating. She reports that the pain was off-and-on all day she did not take any medications to help with the pain. She rates the pain as 10 out of 10 stabbing in nature. She reports that she has recently had a stress test done a month ago along with an echocardiogram and she reports that both were normal. She has never had coronary artery disease in the past. Currently she is in the ER EKG showed no ST depression in the lateral leads, troponins were unremarkable patient admitted under observation to rule out acute coronary syndrome. Patient still reports ongoing chest pain at this time and is requesting Dilaudid to help her with her occipital headaches and chest pain. Review of Systems Pertinent positives as noted in HPI. 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,DVT R calf in 1976, cardiac murmur.occipital neuraligia, constipation History of Any Multi-Drug Resistant Organisms: MRSA Date of last positivie culture/infection: 2010 MDRO Source:: 4th rt toe Past Surgical History: Appendectomy, Back Surgery, Bladder Surgery, Breast Surgery, Cholecystectomy, Hysterectomy, Orthopedic Surgery, Tonsillectomy Additional Past Surgical History / Comment(s): Lumbar fusions, bladder suspension, occipital nerve blocks, 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 Past Anesthesia/Blood Transfusion Reactions: Motion Sickness Additional Past Anesthesia/Blood Transfusion Reaction / Comment(s): never recieved blood Past Psychological History: No Psychological Hx Reported Smoking Status: Never smoker Past Alcohol Use History: Occasional Past Drug Use History: None Reported - Past Family History Father Family Medical History: Coronary Artery Disease (CAD), CVA/TIA, Diabetes Mellitus, Myocardial Infarction ([place]), Pneumonia Additional Family Medical History / Comment(s): ather at the age of 78yrs from [place] and pneumonia. Mother Family Medical History: Cancer Additional Family Medical History / Comment(s): Mother had uterine cancer. She is 96yrs old. Medications and Allergies Home Medications Medication Instructions Recorded Confirmed Type Atorvastatin Calcium [Lipitor] 20 mg PO HS 12/01/14 11/09/18 History Cholecalciferol [Vitamin D3 (25 3,000 unit PO DAILY@0700 12/01/14 11/09/18 History Mcg = 1000 Iu)] Ondansetron [Zofran] 4 mg PO Q6H PRN 10/12/15 11/09/18 History HYDROcodone/APAP 10-325MG [[place] 1 - 2 tab PO Q4-6H PRN 07/06/17 11/09/18 History 10-325] Metoprolol Succinate (ER) [Toprol 50 mg PO HS 07/06/17 11/09/18 History XL] Meclizine [Antivert] 25 mg PO QID PRN 11/26/17 11/09/18 History Magnesium Oxide 400 mg PO QAM 02/26/18 11/09/18 History Pantoprazole [Protonix] 40 mg PO BID 02/26/18 11/09/18 History Hydrocortisone [Cortef] 10 mg PO AC-LUNCH 05/18/18 11/09/18 History Hydrocortisone [Cortef] 15 mg PO AC-BRKFST 05/18/18 11/09/18 History Insulin Glargine,Hum.rec.anlog 32 units SQ HS@2200 05/18/18 11/09/18 History [Lantus Solostar] Hydrocortisone [Cortef] 5 mg PO HS 06/26/18 11/09/18 History Aspirin 81 mg PO DAILY #0 07/02/18 11/09/18 Rx Budesonide [Pulmicort Flexhaler] 1 puff INHALATION RT-BID PRN 08/12/18 11/09/18 History Glucagon Emergency Kit 1 mg IM ONCE PRN 08/12/18 11/09/18 History Insulin Aspart [NovoLOG Flexpen] 20 units SQ AC-BRKFST 09/09/18 11/09/18 History Insulin Aspart [NovoLOG Flexpen] 21 units SQ BID 09/09/18 11/09/18 History Methocarbamol [Robaxin-750] 750 mg PO TID PRN 09/09/18 11/09/18 History Promethazine 6.25MG/5Ml [Phenergan 6.25 mg PO Q6H PRN 09/11/18 11/09/18 History Syrup] Acetaminophen Tab [Tylenol] 1,000 mg PO Q6HR PRN 10/08/18 11/09/18 History Cranberry 300mg 300 mg PO BID 10/08/18 11/09/18 History Ferrous Sulfate [Iron (65 MG 325 mg PO DAILY 10/08/18 11/09/18 History Elemental)] Folic Acid 0.4 mg PO DAILY 10/08/18 11/09/18 History L.acidoph,Paracasei, B.lactis 2 cap PO BID 10/08/18 11/09/18 History [Probiotic] Melatonin 5 mg PO HS PRN 10/08/18 11/09/18 History Multivitamins, Thera Liquid 30 ml PO DAILY 10/08/18 11/09/18 History [Theragran Liquid (formulary)] Potassium 99 mg PO DAILY 10/08/18 11/09/18 History Prochlorperazine [Compazine] 10 mg PO Q8H PRN 10/08/18 11/09/18 History Sertraline [Zoloft] 50 mg PO DAILY 10/08/18 11/09/18 History Thiamine [Vitamin B-1] 100 mg PO DAILY 10/08/18 11/09/18 History Vitamin B-Complex Drops 1 drop PO BID 10/08/18 11/09/18 History Lisinopril [Zestril] 10 mg PO DAILY 11/08/18 11/09/18 History Allergies Allergy/AdvReac Type Severity Reaction Status Date / Time butorphanol tartrate Allergy BLISTERS Verified 11/09/18 19:06 [From Stadol] IN MOUTH ceftriaxone [From Rocephin] Allergy Unknown Verified 11/09/18 19:06 clarithromycin [From Biaxin] Allergy Rash/Hives Verified 11/09/18 19:06 codeine Allergy Rash/Hives Verified 11/09/18 19:06 ergotamine tartrate Allergy Unknown Verified 11/09/18 19:06 [From Cafergot] erythromycin base Allergy RASH, GI Verified 11/09/18 19:06 [From E-Mycin] SYMPTOMS ketorolac tromethamine Allergy Rash/Hives Verified 11/09/18 19:06 [From Toradol] liraglutide [From Victoza] Allergy Rash/Hives Verified 11/09/18 19:06 monosodium glutamate [MSG] Allergy Nausea & Verified 11/09/18 19:06 Vomiting morphine Allergy Rash/Hives Verified 11/09/18 19:06 nalbuphine HCl [From Nubain] Allergy Nausea & Verified 11/09/18 19:06 Vomiting Penicillins Allergy Rash/Hives Verified 11/09/18 19:06 pentazocine lactate Allergy SEVERE Verified 11/09/18 19:06 [From Talwin] BLISTERS IN MOUTH pregabalin [From Lyrica] Allergy Rash/Hives Verified 11/09/18 19:06 propoxyphene HCl Allergy Rash/Hives Verified 11/09/18 19:06 [From Darvon] Sulfa (Sulfonamide Allergy Rash/Hives Verified 11/09/18 19:06 Antibiotics) tramadol Allergy Unknown Verified 11/09/18 19:06 Physical Exam Vitals: Vital Signs Temp Pulse Resp BP Pulse Ox 11/09/18 21:54 98.1 F 66 18 140/92 94 L 11/09/18 21:30 75 12 143/90 94 L 11/09/18 21:00 78 18 166/83 94 L 11/09/18 18:58 98.1 F 84 18 154/106 94 L Intake and Output 11/09/18 11/09/18 11/09/18 06:59 14:59 22:59 Other: Weight 70.76 kg Constitutional: No acute distress, conversant, pleasant Eyes: Anicteric sclerae, moist conjunctiva, no lid-lag Pupils equal round reactive to light ENMT: NC/AT Oropharynx clear, no erythema, exudates Neck: Supple, FROM, no masses, or JVD No carotid bruits No thyromegaly Lungs: Clear to auscultation Clear to percussion Normal respiratory effort, no accessory muscle use Cardiovascular: Heart regular in rate and rhythm, No murmurs, gallops, or rubs No peripheral edema Abdominal: Soft Nontender, no guarding, rebound or rigidity Abdomen moving with respiration Normoactive bowel sounds No hepatomegaly, No splenomegaly No palpable mass No abdominal wall hernia noted Skin: Normal temperature, tone, texture, turgor No induration No subcutaneous nodules No rash, lesions No ulcers Extremities: No digital cyanosis No clubbing Pedal pulses intact and symmetrical Radial pulses intact and symmetrical No calf tenderness Psychiatric: Alert and oriented to person, place and time Appropriate affect fair judgment Neuro Muscles Strength 5/5 in all 4 extremities Sensation to light touch grossly present throughout Cranial nerves II-XII grossly intact No focal sensory deficits Lymphatics: no palpable cervical or supraclavicular , or inguinal lymph nodes Results CBC & Chem 7: 11/09/18 19:40 11/09/18 18:58 Labs: Abnormal Lab Results - Last 24 Hours (Table) 11/09/18 11/09/18 Range/Units 18:58 18:58 APTT 20.1 L (22.0-30.0) sec Glucose 202 H (74-99) mg/dL Calcium 10.4 H (8.4-10.2) mg/dL Total Protein 6.0 L (6.3-8.2) g/dL Assessment and Plan Assessment: 68-year-old female with history of diabetes hypertension, admitted under observ ation for atypical chest pain to rule out ACS Plan: Atypical chest pain rule out ACS Patient reports recent stress test done 1 month ago reported to be negative, she had an echocardiogram done and she was told that it was normal However this time EKG is showing new ST depression in the lateral leads, troponins negative Patient was started on heparin drip in the ER, nitro for chest pain when necessary, aspirin and statin Continue home meds Trend cardiac enzymes Cardiac monitoring Cardiology consult Chronic conditions currently stable Adrenal insufficiency on Cortef Diabetes mellitus on insulin Hypertension currently controlled Occipital headache patient requesting Dilaudid to help her with pain. Otherwise continue home medications DVT prophylaxis patient currently on heparin drip for chest pain Preformed a thorough record review from recent hospitalization for UTI Surrogate decision-maker: Patient CODE STATUS: Full code Discussed with: Patient, ER, RN Anticipated discharge: Less than [address]: Home A total of 60 minutes was spent on the care of this complex patient more than 50% of the time was spent in counseling and care coordination.
[2018-11-09] MEDS: HYDROCORTISONE 10 MG TAB PO SCH (23:02)
[2018-11-09] MEDS: PANTOPRAZOLE 40 MG TABLET PO SCH (23:02)
[2018-11-09] MEDS: METOPROLOL SUCCINATE (ER) 50 MG TAB.ER.24H PO SCH (23:02)
[2018-11-10] MEDS: INSULIN DETEMIR (LEVEMIR) 100 UNIT/ML SYR SQ SCH ×2 (00:19→21:50)
[2018-11-10] MEDS: HYDROmorphone 0.5 MG/0.5 ML SYRINGE IVP PRN ×4 (01:40→20:18)
[2018-11-10] MEDS: ONDANSETRON 4 MG/2 ML VIAL IVP PRN ×3 (05:55→17:00)
[2018-11-10 06:36] LABS: Glucose,Whole Blood 236 mg/dL (75-99)
[2018-11-10] MEDS ORDERED: INSULIN ASPART (NovoLOG) 100 UNIT/ML VIAL SQ SCH (07:30)
[2018-11-10 08:38] LABS: D-Dimer 0.8 mg/L FEU (<0.60); Partial Thromboplastin Time 34.4 sec (22.0-30.0)
[2018-11-10 08:42] LABS: Cholesterol 160 mg/dL (<200); HDL Cholesterol 42 mg/dL (40-60); LDL Cholesterol,Calculated 59 mg/dL (0-99); Triglycerides 295 mg/dL (<150)
[2018-11-10] MEDS ORDERED: NON-FORMULARY DRUG (Potassium [Potassium] 99 MG) PO SCH (09:00)
[2018-11-10] MEDS ORDERED: LISINOPRIL 10 MG TAB PO SCH (09:00)
[2018-11-10] MEDS ORDERED: ASPIRIN 325 MG TAB PO SCH (09:00)
[2018-11-10] MEDS ORDERED: LISINOPRIL 10 MG TAB PO STA (10:50)
--- NOTE | 2018-11-10 10:59 | P.CRDCN ---
History of Present Illness History of present illness: This is Dr. Jenkins dictating a consult on this patient The patient was interviewed and examined by me IMPRESSION / ASSESSMENT: Atypical stabbing discomfort in the left chest with normal cardiac enzymes Twelve-lead ECG shows LVH with asymmetric T-wave inversions with [address] depression in the lateral precordial leads Shortness of breath dizziness Elevated blood pressure readings possibly associated with her occipital headaches PLAN: Check d-dimer and consider pulmonary medicine in the differential diagnosis given her history and her past history. If abnormal further evaluation per internal medicine/pulmonary medicine 2-D echo and Doppler study once again to look at her right ventricular size and function as well as the pericardium Continue heparin for now Increase lisinopril to 10 mg twice daily and maximize for better blood pressure control HPI patient presented to the hospital with shortness of breath and stabbing chest discomfort left-sided and radiated to the jaw and she also had nausea and dizziness. 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 She also complains of occipital headaches Past history of DVT associated with /delivery greater than 30 is back ROS: No fever chills or rigors, no cough, phlegm or expectoration, no nausea, vomiting or diarrhea, no hematuria, dysuria, no musculoskeletal complaints, no strokes or seizures, no skin lesions. EXAMINATION: Blood pressure 179/98 mmHg Normal breathing nonlabored Heart rate in the 70s, afebrile 97.6F Breath sounds are reduced bilaterally Heart sounds are soft no murmurs or gallop Abdomen soft Extremities are warm REVIEW OF LABS, ECG & MEDICAL DATA Normal troponins Triglycerides 295, total cholesterol 160, LDL 59 and HDL 42 D-dimer 0.8 Sodium 138 potassium 3.6 BUN 14 creatinine 0.55 Elevated glucose Chest x-ray is normal Twelve-lead ECG shows sinus rhythm normal MD narrow QRS width [address] depression with T-wave inversions in the lateral precordial leads him a LVH 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,DVT R calf in 1976, cardiac murmur.occipital neuraligia, constipation History of Any Multi-Drug Resistant Organisms: MRSA Date of last positivie culture/infection: 2010 MDRO Source:: 4th rt toe Past Surgical History: Appendectomy, Back Surgery, Bladder Surgery, Breast Surgery, Cholecystectomy, Hysterectomy, Orthopedic Surgery, Tonsillectomy Additional Past Surgical History / Comment(s): Lumbar fusions, bladder suspension, occipital nerve blocks, 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 Past Anesthesia/Blood Transfusion Reactions: Motion Sickness Additional Past Anesthesia/Blood Transfusion Reaction / Comment(s): never recieved blood Past Psychological History: No Psychological Hx Reported Smoking Status: Never smoker Past Alcohol Use History: Occasional Past Drug Use History: None Reported - Past Family History Father Family Medical History: Coronary Artery Disease (CAD), CVA/TIA, Diabetes Mellitus, Myocardial Infarction ([place]), Pneumonia Additional Family Medical History / Comment(s): ather at the age of 78yrs from [place] and pneumonia. Mother Family Medical History: Cancer Additional Family Medical History / Comment(s): Mother had uterine cancer. She is 96yrs old. Medications and Allergies Home Medications Medication Instructions Recorded Confirmed Type Atorvastatin Calcium [Lipitor] 20 mg PO HS 12/01/14 11/09/18 History Cholecalciferol [Vitamin D3 (25 3,000 unit PO DAILY@0700 12/01/14 11/09/18 History Mcg = 1000 Iu)] Ondansetron [Zofran] 4 mg PO Q6H PRN 10/12/15 11/09/18 History HYDROcodone/APAP 10-325MG [[place] 1 - 2 tab PO Q4-6H PRN 07/06/17 11/09/18 History 10-325] Metoprolol Succinate (ER) [Toprol 50 mg PO HS 07/06/17 11/09/18 History XL] Meclizine [Antivert] 25 mg PO QID PRN 11/26/17 11/09/18 History Magnesium Oxide 400 mg PO QAM 02/26/18 11/09/18 History Pantoprazole [Protonix] 40 mg PO BID 02/26/18 11/09/18 History Hydrocortisone [Cortef] 10 mg PO AC-LUNCH 05/18/18 11/09/18 History Hydrocortisone [Cortef] 15 mg PO AC-BRKFST 05/18/18 11/09/18 History Hydrocortisone [Cortef] 5 mg PO HS 06/26/18 11/09/18 History Aspirin 81 mg PO DAILY #0 07/02/18 11/09/18 Rx Budesonide [Pulmicort Flexhaler] 1 puff INHALATION RT-BID PRN 08/12/18 11/09/18 History Glucagon Emergency Kit 1 mg IM ONCE PRN 08/12/18 11/09/18 History Methocarbamol [Robaxin-750] 750 mg PO TID PRN 09/09/18 11/09/18 History Promethazine 6.25MG/5Ml [Phenergan 6.25 mg PO Q6H PRN 09/11/18 11/09/18 History Syrup] Acetaminophen Tab [Tylenol] 1,000 mg PO Q6HR PRN 10/08/18 11/09/18 History Cranberry 300mg 300 mg PO BID 10/08/18 11/09/18 History Ferrous Sulfate [Iron (65 MG 325 mg PO DAILY 10/08/18 11/09/18 History Elemental)] Folic Acid 0.4 mg PO DAILY 10/08/18 11/09/18 History L.acidoph,Paracasei, B.lactis 2 cap PO BID 10/08/18 11/09/18 History [Probiotic] Melatonin 5 mg PO HS PRN 10/08/18 11/09/18 History Multivitamins, Thera Liquid 30 ml PO DAILY 10/08/18 11/09/18 History [Theragran Liquid (formulary)] Potassium 99 mg PO DAILY 10/08/18 11/09/18 History Prochlorperazine [Compazine] 10 mg PO Q8H PRN 10/08/18 11/09/18 History Sertraline [Zoloft] 50 mg PO DAILY 10/08/18 11/09/18 History Thiamine [Vitamin B-1] 100 mg PO DAILY 10/08/18 11/09/18 History Vitamin B-Complex Drops 1 drop PO BID 10/08/18 11/09/18 History Lisinopril [Zestril] 10 mg PO DAILY 11/08/18 11/09/18 History Insulin Aspart Protam & Aspart 22 unit SQ TID 11/09/18 11/09/18 History [NovoLOG MIX 70-30 Flexpen] Insulin Glargine [Lantus] 34 unit SQ HS 11/09/18 11/09/18 History Allergies Allergy/AdvReac Type Severity Reaction Status Date / Time butorphanol tartrate Allergy BLISTERS Verified 11/09/18 19:06 [From Stadol] IN MOUTH ceftriaxone [From Rocephin] Allergy Unknown Verified 11/09/18 19:06 clarithromycin [From Biaxin] Allergy Rash/Hives Verified 11/09/18 19:06 codeine Allergy Rash/Hives Verified 11/09/18 19:06 ergotamine tartrate Allergy Unknown Verified 11/09/18 19:06 [From Cafergot] erythromycin base Allergy RASH, GI Verified 11/09/18 19:06 [From E-Mycin] SYMPTOMS ketorolac tromethamine Allergy Rash/Hives Verified 11/09/18 19:06 [From Toradol] liraglutide [From Victoza] Allergy Rash/Hives Verified 11/09/18 19:06 monosodium glutamate [MSG] Allergy Nausea & Verified 11/09/18 19:06 Vomiting morphine Allergy Rash/Hives Verified 11/09/18 19:06 nalbuphine HCl [From Nubain] Allergy Nausea & Verified 11/09/18 19:06 Vomiting Penicillins Allergy Rash/Hives Verified 11/09/18 19:06 pentazocine lactate Allergy SEVERE Verified 11/09/18 19:06 [From Talwin] BLISTERS IN MOUTH pregabalin [From Lyrica] Allergy Rash/Hives Verified 11/09/18 19:06 propoxyphene HCl Allergy Rash/Hives Verified 11/09/18 19:06 [From Darvon] Sulfa (Sulfonamide Allergy Rash/Hives Verified 11/09/18 19:06 Antibiotics) tramadol Allergy Unknown Verified 11/09/18 19:06 Physical Exam Vitals: Vital Signs Temp Pulse Pulse Resp BP BP Pulse Ox 11/10/18 08:00 97.6 F 72 18 179/98 93 L 11/10/18 03:54 97.8 F 82 16 173/82 90 L 11/10/18 03:18 76 16 11/09/18 23:53 76 16 11/09/18 23:51 97.8 F 80 16 153/77 92 L 11/09/18 22:37 98.0 F 67 16 176/88 94 L 11/09/18 21:54 98.1 F 66 18 140/92 94 L 11/09/18 21:50 17 11/09/18 21:30 75 12 143/90 94 L 11/09/18 21:00 78 18 166/83 94 L 11/09/18 18:58 98.1 F 84 18 154/106 94 L Intake and Output 11/09/18 11/10/18 11/10/18 22:59 06:59 14:59 Intake Total 50.663 Balance 50.663 Intake: Intake, IV Titration 50.663 Amount Heparin Sod,Pork in 0.45% 50.663 NaCl 25,000 unit In 0.45 % NaCl 1 250ml.bag @ 12 UNITS/KG/HR 8.491 mls/hr IV .Q24H [facility] Rx#: [id number] Other: Voiding Method Toilet Toilet # Voids 1 1 Weight 70.76 kg Results 11/09/18 19:40 11/09/18 18:58 Cardiac Enzymes 11/09/18 11/09/18 11/10/18 Range/Units 18:58 18:58 00:57 AST 19 (14-36) U/L CK-MB (CK-2) 0.6 (0.0-2.4) ng/mL Troponin I <0.012 <0.012 (0.000-0.034) ng/mL 11/10/18 Range/Units 06:49 AST (14-36) U/L CK-MB (CK-2) (0.0-2.4) ng/mL Troponin I <0.012 (0.000-0.034) ng/mL Coagulation 11/09/18 11/10/18 11/10/18 Range/Units 18:58 03:19 08:06 PT 9.8 (9.0-12.0) sec APTT 20.1 L 32.3 H 34.4 H (22.0-30.0) sec Lipids 11/10/18 Range/Units 06:49 Triglycerides 295 H (<150) mg/dL Cholesterol 160 (<200) mg/dL HDL Cholesterol 42 (40-60) mg/dL CBC 11/09/18 Range/Units 19:40 WBC 6.6 (3.8-10.6) k/uL RBC 4.63 (3.80-5.40) m/uL Hgb 12.9 (11.4-16.0) gm/dL Hct 39.3 (34.0-46.0) % Plt Count 191 (150-450) k/uL Comprehensive Metabolic Panel 11/09/18 Range/Units 18:58 Sodium 138 (137-145) mmol/L Potassium 3.6 (3.5-5.1) mmol/L Chloride 105 (98-107) mmol/L Carbon Dioxide 26 (22-30) mmol/L BUN 14 (7-17) mg/dL Creatinine 0.55 (0.52-1.04) mg/dL Glucose 202 H (74-99) mg/dL Calcium 10.4 H (8.4-10.2) mg/dL AST 19 (14-36) U/L ALT 18 (9-52) U/L Alkaline Phosphatase 72 (38-126) U/L Total Protein 6.0 L (6.3-8.2) g/dL Albumin 3.9 (3.5-5.0) g/dL Current Medications Generic Name Dose Route Start Last Admin Trade Name Freq PRN Reason Stop Dose Admin Aspirin 325 mg 11/10/18 09:00 Aspirin PO DAILY [facility] Atorvastatin Calcium 20 mg 11/10/18 21:00 Lipitor PO HS KIARA Fluticasone Propionate 1 puff 11/09/18 22:13 Flovent 110 Mcg Inhaler INHALATION RT-BID PRN Shortness Of Breath Heparin Sodium (Porcine) 0 unit 11/09/18 21:04 Heparin IV PER PROTOCOL PRN Low PTT Protocol Hydrocortisone 10 mg 11/10/18 12:30 Cortef PO AC-LUNCH KIARA Hydrocortisone 5 mg 11/09/18 22:15 11/09/18 23:02 Cortef PO 5 mg HS KIARA Administration Hydrocortisone 15 mg 11/10/18 07:30 Cortef PO AC-BRKFST KIARA Hydromorphone HCl 0.5 mg 11/09/18 22:16 11/10/18 08:01 Dilaudid IVP 0.5 mg Q6HR PRN Administration Pain Heparin Sodium/Sodium Chloride 250 mls @ 8.491 mls/hr 11/09/18 21:15 11/10/18 03:47 25,000 unit/ Sodium Chloride IV 15 units/kg/hr .Q24H [facility] 10.614 mls/hr Titration Protocol 12 UNITS/KG/HR Insulin Aspart 21 unit 11/10/18 12:30 Novolog SQ 1230,1730 [facility] Insulin Aspart 0 unit 11/10/18 07:30 Novolog SQ ACHS [facility] Protocol Insulin Aspart 20 unit 11/10/18 07:30 Novolog SQ AC-BRKFST [facility] Insulin Detemir 32 unit 11/09/18 23:17 11/10/18 00:19 Levemir SQ 32 unit HS@2200 [facility]ARA Administration Lisinopril 20 mg 11/11/18 09:00 Zestril PO DAILY [facility] Lisinopril 10 mg 11/10/18 10:50 Zestril PO 11/10/18 10:51 ONCE STA Meclizine HCl 25 mg 11/09/18 22:13 Antivert PO QID PRN Vertigo Melatonin 5 mg 11/09/18 22:13 11/09/18 23:22 Melatonin PO 5 mg HS PRN Administration Insomnia Methocarbamol 750 mg 11/09/18 22:13 Robaxin PO TID PRN Muscle Spasm Metoprolol Succinate 50 mg 11/09/18 22:15 11/09/18 23:02 Toprol Xl PO 50 mg HS KIARA Administration Nitroglycerin 0.4 mg 11/09/18 21:40 Nitrostat SUBLINGUAL Q5M PRN Chest Pain Ondansetron HCl 4 mg 11/10/18 05:44 11/10/18 05:55 Zofran IVP 4 mg Q6HR PRN Administration Nausea And Vomiting Pantoprazole Sodium 40 mg 11/09/18 22:15 11/09/18 23:02 Protonix PO 40 mg BID [facility]IARA Administration Sertraline HCl 50 mg 11/10/18 09:00 Zoloft PO DAILY [facility] Intake and Output 11/09/18 11/10/18 11/10/18 22:59 06:59 14:59 Intake Total 50.663 Balance 50.663 Intake: Intake, IV Titration 50.663 Amount Heparin Sod,Pork in 0.45% 50.663 NaCl 25,000 unit In 0.45 % NaCl 1 250ml.bag @ 12 UNITS/KG/HR 8.491 mls/hr IV .Q24H [facility] Rx#: [id number] Other: Voiding Method Toilet Toilet # Voids 1 1 Weight 70.76 kg 11/09/18 19:40 11/09/18 18:58
[2018-11-10] MEDS: INSULIN ASPART (NovoLOG) 100 UNIT/ML VIAL SQ SCH ×7 (11:23→21:50)
[2018-11-10] MEDS: HYDROCORTISONE 10 MG TAB PO SCH (11:24)
[2018-11-10 11:46] LABS: Glucose,Whole Blood 176 mg/dL (75-99)
--- NOTE | 2018-11-10 12:53 | CT ---
EXAMINATION TYPE: CT angio chest DATE OF EXAM: 11/10/2018 COMPARISON: Prior chest CT dated 11/16/2010 HISTORY: Unstable angina CT DLP: 292.6 mGycm Automated exposure control for dose reduction was used. CONTRAST: CTA scan of the thorax is performed without and with IV Contrast, patient injected with 100 ml mL of Isovue 370, pulmonary embolism protocol. MIP images are created and reviewed. 3D reconstructed imag es are created on an independent workstation and reviewed. FINDINGS: LUNGS: The lungs are remarkable for some basilar groundglass opacity possibly some pneumonitis, some minimal prominence of interstitium also present, there is basilar atelectasis. There is no pleural effusion or pneumothorax seen. The tracheobronchial tree is patent. AORTA: Focal outpouching is present at the medial aspect of the proximal descending aorta which coul d represent an ulcer or focal [place] aneurysm, transverse dimension at this level is approximately 3.4 cm. Atheromatous changes are present within the aorta. MEDIASTINUM: There is satisfactory enhancement of the pulmonary artery and its branches, there is no CT evidence for pulmonary embolism. There are no greater than 1 cm hilar or mediastinal lymph nodes. No pericardial effusion is seen. The heart is enlarged and there are coronary artery calcification s present OTHER: Suspected patient is post left hemithyroidectomy. Some collateral vasculature enhances over the right upper chest IMPRESSION: POSSIBLE PENETRATING ULCER OR FOCAL ANEURYSM IN THE MEDIAL ASPECT OF THE PROXIMAL DESCENDING AORTA. N O EVIDENT PULMONARY EMBOLISM. Cardiomegaly, coronary artery disease, there may be some alveolitis, th ere is basilar atelectasis
[2018-11-10] MEDS ORDERED: hydrALAZINE HCL 20 MG/ML 1 ML VIAL IVP PRN (13:11)
[2018-11-10] MEDS: METOCLOPRAMIDE 5 MG/ML 2 ML VIAL IVP SCH ×3 (13:26→23:51)
[2018-11-10] MEDS: PANTOPRAZOLE 40 MG/10 ML VIAL IVP SCH ×2 (13:53→23:51)
--- NOTE | 2018-11-10 14:15 | P.PN ---
Subjective Progress Note Date: 11/10/18 Patient is seen in follow-up, both her nursing reporting intermittent episodes of nausea and vomiting and diarrhea, she patient denies any chest pain at this time, the patient does have chronic headaches and has occipital neuralgia and is actually scheduled to have injections by Dr. Silva next week. Noted elevation of d-dimer .0.80 Objective - Vital Signs Vital signs: Vital Signs Temp 97.7 F 11/10/18 12:00 Pulse 71 11/10/18 12:00 Resp 18 11/10/18 12:00 BP 214/98 11/10/18 12:00 Pulse Ox 95 11/10/18 12:00 Intake & Output 11/09/18 11/10/18 11/10/18 18:59 06:59 18:59 Intake Total 50.663 99.418 Balance 50.663 99.418 Weight 70.76 kg Intake: Intake, IV Titration 50.663 99.418 Amount Heparin Sod,Pork in 0.45% 50.663 99.418 NaCl 25,000 unit In 0.45 % NaCl 1 250ml.bag @ 12 UNITS/KG/HR 8.491 mls/hr IV .Q24H [facility] Rx#: [id number] Other: Voiding Method Toilet Toilet # Voids 1 - Exam Constitutional: No acute distress, conversant, pleasant Eyes: Anicteric sclerae, moist conjunctiva, no lid-lag, PERRLA ENMT: NC/AT,Oropharynx clear, no erythema, exudates Neck:Supple, FROM, no masses, or JVD, No carotid bruits; No thyromegaly Lungs: Clear to auscultation, Clear to percussion, Normal respiratory effort, no accessory muscle use Cardiovascular: Heart regular in rate and rhythm, No murmurs, gallops, or rubs no peripheral edema Abdominal: Soft Nontender, nom distended, no guarding, no rebound or rigidity, Normoactive bowel sounds No hepatomegaly, No splenomegaly, No palpable mass No abdominal wall hernia noted Skin: Normal temperature, tone, texture, turgor, No induration No subcutaneous nodules, No rash, lesions, No ulcers Extremities:No digital cyanosis No clubbing, Pedal pulses intact and symmetrical Radial pulses intact and symmetrical Normal gait and station, No calf tenderness Psychiatric: Alert and oriented to person, place and time, Appropriate affect Intact judgement Neuro: Muscles Strength 5/5 in all 4 extremities, Sensation to light touch g rossly present throughout, Cranial nerves II-XII grossly intact. No focal sensory deficits - Labs CBC & Chem 7: 11/09/18 19:40 11/09/18 18:58 Labs: Abnormal Lab Results - Last 24 Hours (Table) 11/09/18 11/09/18 11/10/18 Range/Units 18:58 18:58 03:19 APTT 20.1 L 32.3 H (22.0-30.0) sec D-Dimer (<0.60) mg/L FEU Glucose 202 H (74-99) mg/dL POC Glucose (mg/dL) (75-99) mg/dL Calcium 10.4 H (8.4-10.2) mg/dL Total Protein 6.0 L (6.3-8.2) g/dL Triglycerides (<150) mg/dL 11/10/18 11/10/18 11/10/18 Range/Units 06:34 06:49 08:06 APTT 34.4 H (22.0-30.0) sec D-Dimer 0.80 H (<0.60) mg/L FEU Glucose (74-99) mg/dL POC Glucose (mg/dL) 236 H (75-99) mg/dL Calcium (8.4-10.2) mg/dL Total Protein (6.3-8.2) g/dL Triglycerides 295 H (<150) mg/dL 11/10/18 Range/Units 11:44 APTT (22.0-30.0) sec D-Dimer (<0.60) mg/L FEU Glucose (74-99) mg/dL POC Glucose (mg/dL) 176 H (75-99) mg/dL Calcium (8.4-10.2) mg/dL Total Protein (6.3-8.2) g/dL Triglycerides (<150) mg/dL Assessment and Plan (1) Atypical chest pain Narrative/Plan: * EKG showing T-wave inversions and some ST depression in precordial leads, troponins have been negative * D-dimer slightly elevated, CTA of chest negative for PE but shows possible penetrating ulcer or focal aneurysm in the medial aspect of the proximal descending aorta * As patient is having GI symptoms likely secondary to GI issues Current Visit: Yes Status: Acute Code(s): R07.89 - OTHER CHEST PAIN SNOMED Code(s): 885362385 (2) Nausea & vomiting Narrative/Plan: * Continue Zofran and Reglan as needed * Possibly secondary to ulcer Current Visit: No Status: Acute Code(s): R11.2 - NAUSEA WITH VOMITING, UNSPECIFIED SNOMED Code(s): 37852143 (3) Occipital neuritis Narrative/Plan: * Likely cause of the patient's headache in conjunction with her elevated blood pressures * continue current pain management * Current Visit: No Status: Acute Code(s): M54.81 - OCCIPITAL NEURALGIA SNOMED Code(s): 43713307 (4) DM type 2 (diabetes mellitus, type 2) Narrative/Plan: * BG relatively stable * Continue insulin regimen Current Visit: No Status: Chronic Code(s): E11.9 - TYPE 2 DIABETES MELLITUS WITHOUT COMPLICATIONS SNOMED Code(s): 86896688 (5) Hypertensive emergency Narrative/Plan: * BP significantly elevated 214/98 * Continue current regimen and add IV hydralazine ( if unable to keep her PO meds down will have to switch to IV regimen) * continue to follow BP closely Current Visit: Yes Status: Acute Code(s): I16.1 - HYPERTENSIVE EMERGENCY SNOMED Code(s): 574673225450178 Plan: * Atypical chest pain cardiac markers negative , CTA negative for any PE does suggest possible aneurysm versus ulcer awaiting cardiology input * Blood pressure continues to be elevated we'll check attempt to get this under control * Anticipated discharge 1-2 days
[2018-11-10 14:18] LABS: Glucose,Whole Blood 146 mg/dL (75-99)
[2018-11-10 14:18] LABS: Glucose,Whole Blood 151 mg/dL (75-99)
[2018-11-10] MEDS: HYDROCORTISONE 20 MG TAB PO SCH (14:59)
[2018-11-10] MEDS ORDERED: IOPAMIDOL-300 CONTRAST 30 ML VIAL (ORAL USE) PO PRN (15:03)
[2018-11-10] MEDS ORDERED: cloNIDine 0.2 MG/24HR PATCH TRANSDERM SCH (15:15)
--- NOTE | 2018-11-10 15:38 | P.PN ---
Progress Note - Text Dr. Dr. Jenkins dictating on 1950, 68-year-old female in the observation unit room #155. 1 I was called by the nurse stating that the patient's blood pressure was very high greater than 200/90 mmHg. On review the blood pressure 214/98 mmHg and the repeat was 187/101 mmHg pulse rate in the 70s The patient is also increasing headache as well as his vomiting and cannot keep anything down Suggest CT of the thoracic aorta start BMP may be done tomorrow CT angiogram chest for pulmonary embolism suggested a possible penetrating ulcer in the proximal portion of the descending aorta or focal aneurysm with a transverse diameter at that level of about 3.4 cm Stop heparin. Discussed with the nurse Reduce aspirin to 81 mg daily Clonidine patch 0.2 mg, TTS 2 Once she is able to keep her medications down I will switched to labetalol also I asked the nurse to call the internal medicine physician take care of the patient for management of evaluation management of headache.
--- NOTE | 2018-11-10 16:24 | CT ---
EXAMINATION TYPE: CT angio thor/abd pel aorta DATE OF EXAM: 11/10/2018 COMPARISON: Prior CT 10/08/2018, CT chest 11/10/2018 HISTORY: Unstable angina. Thoracic aneurysm CT DLP: 1547.3 mGycm. Automated Exposure Control for Dose Reduction was Utilized. CONTRAST: CT scan of the thorax, abdomen and pelvis is performed with IV Contrast, patient injected with 100 mL of Isovue 370. Exam performed pre- and postadministration of intravenous contrast FINDINGS: There is a small hiatal hernia. LUNGS: The lungs are remarkable for some minimal basilar atelectatic changes, there is no concerning parenchymal mass or nodule identified. There is no pleural effusion or pneumothorax seen. The trac heobronchial tree is patent. MEDIASTINUM: There are no greater than 1 cm hilar or mediastinal lymph nodes. No pericardial effusi on is seen. Coronary artery calcifications again seen. OTHER: The focal prominence of the medial aspect of the proximal descending aorta is again noted. Asc ending aorta measures approximately 3.5 cm. Descending aorta at the level of the focal outpouching me asures approximately 3.6 cm. Aorta at the level of the hiatus measures approximately 2.6 cm. Infraren al abdominal aorta shows normal caliber. Inferior and superior mesenteric arteries, renal arteries, c eliac axis, super aortic branch vessels are patent. LIVER/GB: No significant abnormality is appreciated. PANCREAS: No significant abnormality is seen. SPLEEN: No significant abnormality is seen. ADRENALS: Small in size KIDNEYS: Stable, contrast is excreted bilaterally, cortical cysts are present bilaterally BOWEL: No significant abnormality is seen. GENITAL ORGANS: No gross abnormality seen. LYMPH NODES: No greater than 1cm abdominal or pelvic lymph nodes are appreciated. Urinary bladder is contrast-filled likely due to prior exam OSSEOUS STRUCTURES: Postop changes are noted to the lumbosacral spine. Old fractures noted of the pel vis appears healed OTHER: Injection granuloma noted in the gluteal regions. IMPRESSION: Previously described caliber anomaly in the proximal descending aorta significant for loc al aneurysm or possibly penetrating ulcer, additional findings above.
[2018-11-10 17:02] LABS: Glucose,Whole Blood 174 mg/dL (75-99)
[2018-11-10] MEDS: SERTRALINE 50 MG TAB PO SCH (17:42)
[2018-11-10 20:18] LABS: Glucose,Whole Blood 162 mg/dL (75-99)
[2018-11-10] MEDS ORDERED: ATORVASTATIN 20 MG TAB PO SCH (21:00)
--- NOTE | 2018-11-10 21:59 | CT ---
EXAMINATION TYPE: CT brain wo con DATE OF EXAM: 11/10/2018 COMPARISON: Prior dated 09/09/2018 HISTORY: PATEL CT DLP: 1098.4 mGycm Automated exposure control for dose reduction was used. Helical imaging through the brain. FINDINGS: Periventricular white matter shows low attenuation as on prior exam. Is no hemorrhage or hydrocephalu s. There are cerebral vascular calcifications present. Inflammatory change in the left maxillary sinu s is again seen and is chronic. IMPRESSION: STABLE EXAM, NO ACUTE ABNORMALITY.
[2018-11-10] MEDS ORDERED: INSULIN DETEMIR (LEVEMIR) 100 UNIT/ML SYR SQ SCH ×2 (22:00)
[2018-11-10] MEDS: METOPROLOL SUCCINATE (ER) 50 MG TAB.ER.24H PO SCH (23:51)
[2018-11-10] MEDS: LISINOPRIL 10 MG TAB PO SCH (23:52)
[2018-11-11] MEDS: ATORVASTATIN 40 MG TAB PO SCH ×2 (00:01→20:46)
[2018-11-11] MEDS: ACETAMINOPHEN TAB 325 MG TAB PO PRN ×2 (00:28→04:55)
[2018-11-11] MEDS: HYDROmorphone 0.5 MG/0.5 ML SYRINGE IVP PRN ×4 (02:23→20:48)
[2018-11-11 06:20] LABS: Glucose,Whole Blood 246 mg/dL (75-99)
[2018-11-11] MEDS: HYDROCORTISONE 10 MG TAB PO SCH ×3 (06:30→20:46)
[2018-11-11] MEDS: INSULIN ASPART (NovoLOG) 100 UNIT/ML VIAL SQ SCH ×7 (06:30→20:53)
[2018-11-11] MEDS: METOCLOPRAMIDE 5 MG/ML 2 ML VIAL IVP SCH ×3 (06:31→16:49)
[2018-11-11] MEDS: ONDANSETRON 4 MG/2 ML VIAL IVP PRN (06:46)
[2018-11-11] MEDS: LISINOPRIL 10 MG TAB PO SCH ×2 (08:10→20:46)
[2018-11-11] MEDS: SERTRALINE 50 MG TAB PO SCH (08:10)
[2018-11-11] MEDS: ASPIRIN 81 MG PO SCH (08:10)
[2018-11-11] MEDS: PANTOPRAZOLE 40 MG/10 ML VIAL IVP SCH ×2 (08:10→20:45)
[2018-11-11] MEDS ORDERED: LISINOPRIL 20 MG TAB PO SCH (09:00)
--- NOTE | 2018-11-11 09:54 | P.GSCN ---
History of Present Illness Consult date: 11/11/18 Reason for Consult: Abnormal CTA, rule out aortic aneurysm Requesting physician: Jewel Jenkins History of present illness: This is a 68-year-old female patient who follows on an outpatient basis with Dr. Allyson Guardado. She has a previous medical history of hypertension, hyperlipidemia, insulin-dependent diabetes mellitus, kidney disease, questionable parathyroid disease, DVT, obstructive sleep apnea with CPAP use, adrenal insufficiency, arthritis, multiple orthopedic issues, and family history of heart disease and cancer. She presented to [facility] emergency room with complaints of sharp intermittent chest pain with radiation to her jaw for the previous 1-2 days. Associated symptoms included shortness of breath, headache, nausea, dizziness. She had relief of symptoms with pain medication, however her headache and nausea continue. She was admitted to observation for workup to exclude acute coronary syndrome. EKG demonstrated no acute changes, troponins were negative 3. She had a CTA of the chest which demonstrated no pulmonary embolism. She did experience hypertension with a blood pressure 214/98. She was taken for CT angiogram of the thoracic aorta which demonstrated focal prominence of the medial aspect of the proximal descending aorta measuring approximately 3.6 cm, possibly significant for local aneurysm or penetrating ulcer. The patient was started on a Catapres patch for her hypertension. Consultation was placed to Dr. Major for recommendations regarding abnormal CT results. Review of Systems Review of systems was completed and was negative except as noted. 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,DVT R calf in 1976, cardiac murmur.occipital neuraligia, constipation History of Any Multi-Drug Resistant Organisms: MRSA Year Discovered:: 2010 MDRO Source:: 4th rt toe Past Surgical History: Appendectomy, Back Surgery, Bladder Surgery, Breast Surgery, Cholecystectomy, Hysterectomy, Orthopedic Surgery, Tonsillectomy Additional Past Surgical History / Comment(s): Lumbar fusions, bladder suspension, occipital nerve blocks, 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 Past Anesthesia/Blood Transfusion Reactions: Motion Sickness Additional Past Anesthesia/Blood Transfusion Reaction / Comm: never recieved blood Past Psychological History: No Psychological Hx Reported Smoking Status: Never smoker Past Alcohol Use History: Occasional Past Drug Use History: None Reported - Past Family History Father Family Medical History: Coronary Artery Disease (CAD), CVA/TIA, Diabetes Mellitus, Myocardial Infarction (HI), Pneumonia Additional Family Medical History / Comment(s): ather at the age of 78yrs from HI and pneumonia. Mother Family Medical History: Cancer Additional Family Medical History / Comment(s): Mother had uterine cancer. She is 96yrs old. Medications and Allergies Home Medications Medication Instructions Recorded Confirmed Type Atorvastatin Calcium [Lipitor] 20 mg PO HS 12/01/14 11/09/18 History Cholecalciferol [Vitamin D3 (25 3,000 unit PO DAILY@0700 12/01/14 11/09/18 History Mcg = 1000 Iu)] Ondansetron [Zofran] 4 mg PO Q6H PRN 10/12/15 11/09/18 History HYDROcodone/APAP 10-325MG [[place] 1 - 2 tab PO Q4-6H PRN 07/06/17 11/09/18 History 10-325] Metoprolol Succinate (ER) [Toprol 50 mg PO HS 07/06/17 11/09/18 History XL] Meclizine [Antivert] 25 mg PO QID PRN 11/26/17 11/09/18 History Magnesium Oxide 400 mg PO QAM 02/26/18 11/09/18 History Pantoprazole [Protonix] 40 mg PO BID 02/26/18 11/09/18 History Hydrocortisone [Cortef] 10 mg PO AC-LUNCH 05/18/18 11/09/18 History Hydrocortisone [Cortef] 15 mg PO AC-BRKFST 05/18/18 11/09/18 History Hydrocortisone [Cortef] 5 mg PO HS 06/26/18 11/09/18 History Aspirin 81 mg PO DAILY #0 07/02/18 11/09/18 Rx Budesonide [Pulmicort Flexhaler] 1 puff INHALATION RT-BID PRN 08/12/18 11/09/18 History Glucagon Emergency Kit 1 mg IM ONCE PRN 08/12/18 11/09/18 History Methocarbamol [Robaxin-750] 750 mg PO TID PRN 09/09/18 11/09/18 History Promethazine 6.25MG/5Ml [Phenergan 6.25 mg PO Q6H PRN 09/11/18 11/09/18 History Syrup] Acetaminophen Tab [Tylenol] 1,000 mg PO Q6HR PRN 10/08/18 11/09/18 History Cranberry 300mg 300 mg PO BID 10/08/18 11/09/18 History Ferrous Sulfate [Iron (65 MG 325 mg PO DAILY 10/08/18 11/09/18 History Elemental)] Folic Acid 0.4 mg PO DAILY 10/08/18 11/09/18 History L.acidoph,Paracasei, B.lactis 2 cap PO BID 10/08/18 11/09/18 History [Probiotic] Melatonin 5 mg PO HS PRN 10/08/18 11/09/18 History Multivitamins, Thera Liquid 30 ml PO DAILY 10/08/18 11/09/18 History [Theragran Liquid (formulary)] Potassium 99 mg PO DAILY 10/08/18 11/09/18 History Prochlorperazine [Compazine] 10 mg PO Q8H PRN 10/08/18 11/09/18 History Sertraline [Zoloft] 50 mg PO DAILY 10/08/18 11/09/18 History Thiamine [Vitamin B-1] 100 mg PO DAILY 10/08/18 11/09/18 History Vitamin B-Complex Drops 1 drop PO BID 10/08/18 11/09/18 History Lisinopril [Zestril] 10 mg PO DAILY 11/08/18 11/09/18 History Insulin Aspart Protam & Aspart 22 unit SQ TID 11/09/18 11/09/18 History [NovoLOG MIX 70-30 Flexpen] Insulin Glargine [Lantus] 34 unit SQ HS 11/09/18 11/09/18 History Allergies Allergy/AdvReac Type Severity Reaction Status Date / Time butorphanol tartrate Allergy BLISTERS Verified 11/09/18 19:06 [From Stadol] IN MOUTH ceftriaxone [From Rocephin] Allergy Unknown Verified 11/09/18 19:06 clarithromycin [From Biaxin] Allergy Rash/Hives Verified 11/09/18 19:06 codeine Allergy Rash/Hives Verified 11/09/18 19:06 ergotamine tartrate Allergy Unknown Verified 11/09/18 19:06 [From Cafergot] erythromycin base Allergy RASH, GI Verified 11/09/18 19:06 [From E-Mycin] SYMPTOMS ketorolac tromethamine Allergy Rash/Hives Verified 11/09/18 19:06 [From Toradol] liraglutide [From Victoza] Allergy Rash/Hives Verified 11/09/18 19:06 monosodium glutamate [MSG] Allergy Nausea & Verified 11/09/18 19:06 Vomiting morphine Allergy Rash/Hives Verified 11/09/18 19:06 nalbuphine HCl [From Nubain] Allergy Nausea & Verified 11/09/18 19:06 Vomiting Penicillins Allergy Rash/Hives Verified 11/09/18 19:06 pentazocine lactate Allergy SEVERE Verified 11/09/18 19:06 [From Talwin] BLISTERS IN MOUTH pregabalin [From Lyrica] Allergy Rash/Hives Verified 11/09/18 19:06 propoxyphene HCl Allergy Rash/Hives Verified 11/09/18 19:06 [From Darvon] Sulfa (Sulfonamide Allergy Rash/Hives Verified 11/09/18 19:06 Antibiotics) tramadol Allergy Unknown Verified 11/09/18 19:06 Surgical - Exam Vital Signs Temp Pulse Resp BP Pulse Ox 98.1 F 84 18 154/106 94 L 11/09/18 18:58 11/09/18 18:58 11/09/18 18:58 11/09/18 18:58 11/09/18 18:58 - General well developed, well nourished, moderate pain, obese - Eyes PERRL, normal ocular movement - ENT no hearing loss - Neck no masses, no bruits, trachea midline - Respiratory Lungs sounds clear bilaterally. Respirations even, nonlabored. Currently on room air with oxygen saturation 90%. - Cardiovascular S1, S2 present. Regular rate and rhythm, sinus rhythm on telemetry. Palpable bilaterally. No edema present. No calf pain or tenderness noted. - Abdomen Abdomen: soft, non tender, bowel sounds - Genitourinary Deferred - Rectum Deferred - Integumentary Skin is warm and dry with evidence of good perfusion. - Neurologic normal coordination, normal sensation - Musculoskeletal normal posture - Psychiatric oriented to time, oriented to person, oriented to place, speech is normal, memory intact Results - Labs 11/09/18 19:40 11/09/18 18:58 Abnormal Lab Results - Last 24 Hours (Table) 11/10/18 11/10/18 11/10/18 Range/Units 11:44 14:03 14:04 POC Glucose (mg/dL) 176 H 151 H 146 H (75-99) mg/dL 11/10/18 11/10/18 11/11/18 Range/Units 16:54 20:15 06:17 POC Glucose (mg/dL) 174 H 162 H 246 H (75-99) mg/dL - Imaging Chest x-ray: report reviewed, image reviewed CT scan - chest: report reviewed, image reviewed EKG: image reviewed Assessment and Plan Assessment: 1. Abnormal thoracic CTA with questionable descending aortic aneurysm versus penetrating ulcer 2. Hypertension 3. Hyperlipidemia 4. Insulin-dependent diabetes mellitus 5. Kidney disease 6. Question of parathyroid disease 7. History of DVT 8. ELIZABET with CPAP use 9. Adrenal insufficiency 10. Arthritis 11. Family history of heart disease Plan: The patient was seen and examined at the bedside. Chart/diagnostics were reviewed in detail including the films of the patient's CT scans. The case was discussed in detail with Dr. Major. At this time no emergent surgical intervention is warranted. The patient should maintain strict blood pressure control. She should follow up with Dr. Major in 2-4 weeks in the office for further determination of appropriate management. Continue management of other comorbid conditions per primary care and cardiology. Thank you Dr. Jenkins for this consult. Please call us with any further questions. Time with Patient: Greater than 30
--- NOTE | 2018-11-11 10:13 | P.PN ---
Subjective Progress Note Date: 11/11/18 Patient seen and examined in follow-up today, reports that her headache is slightly improved. Denies any chest pain shortness of breath, reports her nausea is still persisting but improved as well, denies any vomiting or diarrhea. Patient denies any abdominal pain Blood pressure also improved today 132/72. The patient also seen by cardiothoracic surgery regarding thoracic aortic aneurysm Objective - Vital Signs Vital signs: Vital Signs Temp 97.1 F L 11/11/18 08:00 Pulse 89 11/11/18 08:00 Resp 16 11/11/18 08:00 BP 132/72 11/11/18 08:00 Pulse Ox 90 L 11/11/18 08:00 Intake & Output 11/10/18 11/11/18 11/11/18 18:59 06:59 18:59 Intake Total 99.418 Balance 99.418 Weight 66.8 kg Intake: Intake, IV Titration 99.418 Amount Heparin Sod,Pork in 0.45% 99.418 NaCl 25,000 unit In 0.45 % NaCl 1 250ml.bag @ 12 UNITS/KG/HR 8.491 mls/hr IV .Q24H [facility] Rx#: [id number] Other: Voiding Method Toilet # Voids 1 - Exam Constitutional: No acute distress, conversant, pleasant Eyes: Anicteric sclerae, moist conjunctiva, no lid-lag, PERRLA ENMT: NC/AT,Oropharynx clear, no erythema, exudates Neck:Supple, FROM, no masses, or JVD, No carotid bruits; No thyromegaly Lungs: Clear to auscultation, Clear to percussion, Normal respiratory effort, no accessory muscle use Cardiovascular: Heart regular in rate and rhythm, No murmurs, gallops, or rubs no peripheral edema Abdominal: Soft Nontender, nom distended, no guarding, no rebound or rigidity, Normoactive bowel sounds No hepatomegaly, No splenomegaly, No palpable mass No abdominal wall hernia noted Skin: Normal temperature, tone, texture, turgor, No induration No subcutaneous nodules, No rash, lesions, No ulcers Extremities:No digital cyanosis No clubbing, Pedal pulses intact and symmetrical Radial pulses intact and symmetrical Normal gait and station, No calf tenderness Psychiatric: Alert and oriented to person, place and time, Appropriate affect Intact judgement Neuro: Muscles Strength 5/5 in all 4 extremities, Sensation to light touch grossly present throughout, Cranial nerves II-XII grossly intact. No focal sensory deficits - Labs CBC & Chem 7: 11/09/18 19:40 11/09/18 18:58 Labs: Abnormal Lab Results - Last 24 Hours (Table) 11/10/18 11/10/18 11/10/18 Range/Units 11:44 14:03 14:04 POC Glucose (mg/dL) 176 H 151 H 146 H (75-99) mg/dL 11/10/18 11/10/18 11/11/18 Range/Units 16:54 20:15 06:17 POC Glucose (mg/dL) 174 H 162 H 246 H (75-99) mg/dL Assessment and Plan (1) Atypical chest pain Narrative/Plan: * EKG showing T-wave inversions and some ST depression in precordial leads, troponins have been negative * D-dimer slightly elevated, CTA of chest negative for PE but shows possible penetrating ulcer or focal aneurysm in the medial aspect of the proximal descending aorta * Echocardiogram ordered and is pending Current Visit: Yes Status: Resolved Code(s): R07.89 - OTHER CHEST PAIN SNOMED Code(s): 407968289 (2) Nausea & vomiting Narrative/Plan: * Continue Zofran and Reglan as needed * Possibly secondary to ulcer Current Visit: No Status: Acute Code(s): R11.2 - NAUSEA WITH VOMITING, UNSPECIFIED SNOMED Code(s): 96844031 (3) Occipital neuritis Narrative/Plan: * Likely cause of the patient's headache in conjunction with her elevated blood pressures * continue current pain management * CT head negative for any acute abnormality Current Visit: No Status: Acute Code(s): M54.81 - OCCIPITAL NEURALGIA SNOMED Code(s): 77048717 (4) DM type 2 (diabetes mellitus, type 2) Narrative/Plan: * BG relatively stable * Continue insulin regimen Current Visit: No Status: Chronic Code(s): E11.9 - TYPE 2 DIABETES MELLITUS WITHOUT COMPLICATIONS SNOMED Code(s): 97642258 (5) Hypertensive emergency Narrative/Plan: * BP significantly improved today and is now normalized * Continue current regimen and add IV hydralazine ( if unable to keep her PO meds down will have to switch to IV regimen) * continue to follow BP closely Current Visit: Yes Status: Resolved Code(s): I16.1 - HYPERTENSIVE EMERGENCY SNOMED Code(s): 711317212817830 (6) Thoracic aneurysm without mention of rupture Narrative/Plan: * CTA of the aorta showed abnormal possible aneurysm in the proximal descending aorta * Currently thoracic surgery recommending medical management at this time no surgical interventions indicated Current Visit: Yes Status: Acute Code(s): I71.2 - THORACIC AORTIC ANEURYSM, WITHOUT RUPTURE SNOMED Code(s): 225897553 Plan: disposition * Patient doing much better today waiting clearance for discharge from consultants Time with Patient: Greater than 30
[2018-11-11 12:10] LABS: Glucose,Whole Blood 186 mg/dL (75-99)
[2018-11-11] MEDS: HYDROCORTISONE 20 MG TAB PO SCH (12:55)
--- NOTE | 2018-11-11 13:09 | P.CNNES ---
History of Present Illness Consult date: 11/11/18 Reason for Consult: Occipital neuritis History of Present Illness: Patient is a 68-year-old female, with history of diabetes for last 5 years, wh ich is not well controlled came to the hospital for chest pain shortness of breath. Patient also has been diagnosed with occipital neuralgia for last 6 months and follows up with a neurologist Dr. Perez, pain specialist, who performs occipital nerve blocks periodically. Each time she gets occipital nerve block, the pain goes away for 3 months. Patient states that the occipital neuralgia pain has reappeared in the last 1 week, can go up to 10/10 although at this time is 8/10. Patient states she has an appointment with her neurologist on , 11/15/2018 for a repeated injections. Patient states she has previously tried Lyrica, but got ALLERGIC reaction of rash from it. I discuss a bout trying Neurontin, but she declined, and just wants to have occipital nerve block on the day of scheduled visit with her pain specialist on 11/15/2018. Patient does not offer any other neurological concerns. No focal symptoms. Patient had computed tomography scan of the head which is normal. Some chronic small vessel disease. Inflammatory changes in the left maxillary sinus. Patient last hemoglobin A1c is well controlled 6.8 on 10/09/2018. Review of Systems Occipital neuralgia, shortness of breath. Patient has decreased extraocular movements since . 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,DVT R calf in 1976, cardiac murmur.occipital neuraligia, constipation History of Any Multi-Drug Resistant Organisms: MRSA Date of last positivie culture/infection: 2010 MDRO Source:: 4th rt toe Past Surgical History: Appendectomy, Back Surgery, Bladder Surgery, Breast Surgery, Cholecystectomy, Hysterectomy, Orthopedic Surgery, Tonsillectomy Additional Past Surgical History / Comment(s): Lumbar fusions, bladder suspen becky, occipital nerve blocks, 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 Past Anesthesia/Blood Transfusion Reactions: Motion Sickness Additional Past Anesthesia/Blood Transfusion Reaction / Comment(s): never recieved blood Past Psychological History: No Psychological Hx Reported Smoking Status: Never smoker Past Alcohol Use History: Occasional Past Drug Use History: None Reported - Past Family History Father Family Medical History: Coronary Artery Disease (CAD), CVA/TIA, Diabetes Mellitus, Myocardial Infarction ([place]), Pneumonia Additional Family Medical History / Comment(s): ather at the age of 78yrs from [place] and pneumonia. Mother Family Medical History: Cancer Additional Family Medical History / Comment(s): Mother had uterine cancer. She is 96yrs old. Medications and Allergies Home Medications Medication Instructions Recorded Confirmed Type Atorvastatin Calcium [Lipitor] 20 mg PO HS 12/01/14 11/09/18 History Cholecalciferol [Vitamin D3 (25 3,000 unit PO DAILY@0700 12/01/14 11/09/18 History Mcg = 1000 Iu)] Ondansetron [Zofran] 4 mg PO Q6H PRN 10/12/15 11/09/18 History HYDROcodone/APAP 10-325MG [[place] 1 - 2 tab PO Q4-6H PRN 07/06/17 11/09/18 History 10-325] Metoprolol Succinate (ER) [Toprol 50 mg PO HS 07/06/17 11/09/18 History XL] Meclizine [Antivert] 25 mg PO QID PRN 11/26/17 11/09/18 History Magnesium Oxide 400 mg PO QAM 02/26/18 11/09/18 History Pantoprazole [Protonix] 40 mg PO BID 02/26/18 11/09/18 History Hydrocortisone [Cortef] 10 mg PO AC-LUNCH 05/18/18 11/09/18 History Hydrocortisone [Cortef] 15 mg PO AC-BRKFST 05/18/18 11/09/18 History Hydrocortisone [Cortef] 5 mg PO HS 06/26/18 11/09/18 History Aspirin 81 mg PO DAILY #0 07/02/18 11/09/18 Rx Budesonide [Pulmicort Flexhaler] 1 puff INHALATION RT-BID PRN 08/12/18 11/09/18 History Glucagon Emergency Kit 1 mg IM ONCE PRN 08/12/18 11/09/18 History Methocarbamol [Robaxin-750] 750 mg PO TID PRN 09/09/18 11/09/18 History Promethazine 6.25MG/5Ml [Phenergan 6.25 mg PO Q6H PRN 09/11/18 11/09/18 History Syrup] Acetaminophen Tab [Tylenol] 1,000 mg PO Q6HR PRN 10/08/18 11/09/18 History Cranberry 300mg 300 mg PO BID 10/08/18 11/09/18 History Ferrous Sulfate [Iron (65 MG 325 mg PO DAILY 10/08/18 11/09/18 History Elemental)] Folic Acid 0.4 mg PO DAILY 10/08/18 11/09/18 History L.acidoph,Paracasei, B.lactis 2 cap PO BID 10/08/18 11/09/18 History [Probiotic] Melatonin 5 mg PO HS PRN 10/08/18 11/09/18 History Multivitamins, Thera Liquid 30 ml PO DAILY 10/08/18 11/09/18 History [Theragran Liquid (formulary)] Potassium 99 mg PO DAILY 10/08/18 11/09/18 History Prochlorperazine [Compazine] 10 mg PO Q8H PRN 10/08/18 11/09/18 History Sertraline [Zoloft] 50 mg PO DAILY 10/08/18 11/09/18 History Thiamine [Vitamin B-1] 100 mg PO DAILY 10/08/18 11/09/18 History Vitamin B-Complex Drops 1 drop PO BID 10/08/18 11/09/18 History Lisinopril [Zestril] 10 mg PO DAILY 11/08/18 11/09/18 History Insulin Aspart Protam & Aspart 22 unit SQ TID 11/09/18 11/09/18 History [NovoLOG MIX 70-30 Flexpen] Insulin Glargine [Lantus] 34 unit SQ HS 11/09/18 11/09/18 History Allergies Allergy/AdvReac Type Severity Reaction Status Date / Time butorphanol tartrate Allergy BLISTERS Verified 11/09/18 19:06 [From Stadol] IN MOUTH ceftriaxone [From Rocephin] Allergy Unknown Verified 11/09/18 19:06 clarithromycin [From Biaxin] Allergy Rash/Hives Verified 11/09/18 19:06 codeine Allergy Rash/Hives Verified 11/09/18 19:06 ergotamine tartrate Allergy Unknown Verified 11/09/18 19:06 [From Cafergot] erythromycin base Allergy RASH, GI Verified 11/09/18 19:06 [From E-Mycin] SYMPTOMS ketorolac tromethamine Allergy Rash/Hives Verified 11/09/18 19:06 [From Toradol] liraglutide [From Victoza] Allergy Rash/Hives Verified 11/09/18 19:06 monosodium glutamate [MSG] Allergy Nausea & Verified 11/09/18 19:06 Vomiting morphine Allergy Rash/Hives Verified 11/09/18 19:06 nalbuphine HCl [From Nubain] Allergy Nausea & Verified 11/09/18 19:06 Vomiting Penicillins Allergy Rash/Hives Verified 11/09/18 19:06 pentazocine lactate Allergy SEVERE Verified 11/09/18 19:06 [From Talwin] BLISTERS IN MOUTH pregabalin [From Lyrica] Allergy Rash/Hives Verified 11/09/18 19:06 propoxyphene HCl Allergy Rash/Hives Verified 11/09/18 19:06 [From Darvon] Sulfa (Sulfonamide Allergy Rash/Hives Verified 11/09/18 19:06 Antibiotics) tramadol Allergy Unknown Verified 11/09/18 19:06 Physical Examination - Vital Signs Vital Signs: Vital Signs Temp Pulse Resp BP BP Pulse Ox 11/11/18 08:00 97.1 F L 89 16 132/72 90 L 11/11/18 04:50 98.7 F 90 16 146/82 96 11/10/18 23:45 98.7 F 111 H 16 152/87 93 L 11/10/18 20:10 98.8 F 102 H 18 151/79 93 L 11/10/18 16:59 97.9 F 76 18 178/103 95 11/10/18 14:57 74 187/101 174/88 Intake and Output 11/10/18 11/11/18 11/11/18 22:59 06:59 14:59 Intake Total 100 Balance 100 Intake: Oral 100 Other: Voiding Method Toilet Toilet # Voids 1 1 1 # Bowel Movements 1 Weight 66.8 kg On examination patient is an elderly female, in no distress her mental status speech and language functions are normal. On cranial nerve examination her pupils are round and reactive to light. Visual hinds are full. Extraocular muscles are movement is significantly restricted only for 15 from midline to the left, the right, But the down gaze is up to 30-40. 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 She has mild proptosis also. Face is symmetric and tongue protrudes in midline. On muscle strength testing the strength appears normal except hip flexion which is slightly weak. Reflexes are diminished and plantars downgoing no ataxia for [id number], tone and bulk of muscles normal. Results - Laboratory Findings CBC and BMP: 11/09/18 19:40 11/09/18 18:58 Abnormal Lab Findings: Abnormal Labs 11/09/18 11/09/18 11/10/18 18:58 18:58 03:19 APTT 20.1 L 32.3 H D-Dimer Glucose 202 H POC Glucose (mg/dL) Calcium 10.4 H Total Protein 6.0 L Triglycerides 11/10/18 11/10/18 11/10/18 06:34 06:49 08:06 APTT 34.4 H D-Dimer 0.80 H Glucose POC Glucose (mg/dL) 236 H Calcium Total Protein Triglycerides 295 H 11/10/18 11/10/18 11/10/18 11:44 14:03 14:04 APTT D-Dimer Glucose POC Glucose (mg/dL) 176 H 151 H 146 H Calcium Total Protein Triglycerides 11/10/18 11/10/18 11/11/18 16:54 20:15 06:17 APTT D-Dimer Glucose POC Glucose (mg/dL) 174 H 162 H 246 H Calcium Total Protein Triglycerides 11/11/18 12:03 APTT D-Dimer Glucose POC Glucose (mg/dL) 186 H Calcium Total Protein Triglycerides Assessment and Plan Assessment: * Occipital neuralgia, bilateral * Diabetes mellitus * Aortic aneurysm in the descending thoracic aorta Plan: Patient gets periodic occipital nerve block to her pain specialist. Patient is not interested in any medical management at this time. She has an appointment with her neurologist on 11/15/2018. Please call neurology for any other concerns. Will sign off.
--- NOTE | 2018-11-11 13:33 | P.PN ---
Subjective Progress Note Date: 11/11/18 Principal diagnosis: Hypertension emergency This is a 68-year-old female patient was diabetes, hypertension, and dyslipidemia, who was admitted to the hospital with symptoms of chest discomfort associated with headache and was found to have severely elevated blood pressure. She was ruled out for acute coronary event. The EKG showed T-wave inversion in the lateral leads seems to be chronic. The computed tomography scan of the chest showed no PE but possible ulcer involving the descending thoracic aorta. She was seen by the cardiothoracic team and the plan for a conservative approach at this point and follow-up as an outpatient. On follow-up with the patient today, November [id number], she stated that she is feeling overall slightly better indeterminable the headache and chest discomfort. The pressure is a slightly better as well. Currently she is on clonidine patch. The EKG showed sinus rhythm with T-wave changes in the lateral leads seems to be similar to prior EKG was performed in August 2018. She underwent a stress test at that time and that came in to be unremarkable. If the patient continues to have chest discomfort, I would recommend proceeding with coronary angiogram. Objective - Vital Signs Vital signs: Vital Signs Temp 97.1 F L 11/11/18 08:00 Pulse 77 11/11/18 12:00 Resp 16 11/11/18 12:00 BP 168/50 11/11/18 12:00 Pulse Ox 91 L 11/11/18 12:00 Intake & Output 11/10/18 11/11/18 11/11/18 18:59 06:59 18:59 Intake Total 99.418 100 Balance 99.418 100 Weight 66.8 kg Intake: Intake, IV Titration 99.418 Amount Heparin Sod,Pork in 0.45% 99.418 NaCl 25,000 unit In 0.45 % NaCl 1 250ml.bag @ 12 UNITS/KG/HR 8.491 mls/hr IV .Q24H [facility] Rx#: [id number] Oral 100 Other: Voiding Method Toilet Toilet # Voids 1 1 # Bowel Movements 1 - Constitutional General appearance: Present: no acute distress - Respiratory Respiratory: bilateral: CTA - Cardiovascular Rhythm: regular Heart sounds: normal: S1, S2 - Labs CBC & Chem 7: 11/09/18 19:40 11/09/18 18:58 Labs: Abnormal Lab Results - Last 24 Hours (Table) 11/10/18 11/10/18 11/10/18 Range/Units 14:03 14:04 16:54 POC Glucose (mg/dL) 151 H 146 H 174 H (75-99) mg/dL 11/10/18 11/11/18 11/11/18 Range/Units 20:15 06:17 12:03 POC Glucose (mg/dL) 162 H 246 H 186 H (75-99) mg/dL Assessment and Plan Assessment: Assessment #1 uncontrolled hypertension #2 chest discomfort probably secondary to above #3 headache probably secondary to the above #4 thoracic aortic aneurysm #5 multiple comorbid conditions Plan #1 the patient was ruled out for acute coronary event #2 the thoracic aortic aneurysm has been managed by the cardiothoracic team who recommended conservative approach at this point #3 the blood pressure seems to be better controlled after the clonidine patch added on #4 if the patient continues to have chest discomfort, coronary angiogram is advised
--- NOTE | 2018-11-11 14:19 | ECHOF ---
Referral Reason:chest pain MEASUREMENTS -------- HEIGHT: 154.9 cm WEIGHT: 66.2 kg BP: RVIDd: 3.0 cm (< 3.3) IVSd: 2.0 cm (0.6 - 1.1) LVIDd: 2.9 cm (3.9 - 5.3) LVPWd: 1.9 cm (0.6 - 1.1) IVSs: 2.4 cm LVIDs: 1.8 cm LVPWs: 1.9 cm Ao Diam: 3.4 cm (2.0 - 3.7) AV Cusp: 1.8 cm (1.5 - 2.6) LA Diam: 3.3 cm (2.7 - 3.8) MV EXCURSION: 17.354 mm (> 18.000) MV EF SLOPE: 75 mm/s (70 - 150) EPSS: 0.5 cm MV E Fuad: 0.58 m/s MV DecT: 365 ms MV A Fuad: 0.88 m/s MV E/A Ratio: 0.66 RAP: 5.00 mmHg RVSP: 26.36 mmHg FINDINGS -------- Sinus rhythm. This was a technically difficult study with suboptimal views. The left ventricular size is normal. There is severe concentric left ventricular hypertrophy. Ove rall left ventricular systolic function is normal with, an EF between 55 - 60 %. The right ventricle is normal in size. The left atrial size is normal. The right atrial size is normal. 1.5mg of Definity was utilized for enhancement of images Interatrial and interventricular septum intact. Aortic valve is trileaflet and is mildly thickened. The mitral valve leaflets are mildly thickened. There is trace mitral regurgitation. Trace tricuspid regurgitation present. The right ventricular systolic pressure, as measured by Dopp ler, is 26.36mmHg. There is no pulmonic regurgitation present. The aortic root size is normal. IVC Not well visulized. There is no pericardial effusion. CONCLUSIONS -------- 1. Sinus rhythm. 2. This was a technically difficult study with suboptimal views. 3. The left ventricular size is normal. 4. There is severe concentric left ventricular hypertrophy. 5. Overall left ventricular systolic function is normal with, an EF between 55 - 60 %. 6. The right ventricle is normal in size. 7. The left atrial size is normal. 8. The right atrial size is normal. 9. 1.5mg of Definity was utilized for enhancement of images 10. Interatrial and interventricular septum intact. 11. Aortic valve is trileaflet and is mildly thickened. 12. The mitral valve leaflets are mildly thickened. 13. There is trace mitral regurgitation. 14. Trace tricuspid regurgitation present. 15. The right ventricular systolic pressure, as measured by Doppler, is 26.36mmHg. 16. There is no pulmonic regurgitation present. 17. The aortic root size is normal. 18. IVC Not well visulized. 19. There is no pericardial effusion. INSURANCE ADMINISTRATOR: Tona Branch RDCS
[2018-11-11 17:21] LABS: Glucose,Whole Blood 187 mg/dL (75-99)
[2018-11-11] MEDS: METOPROLOL SUCCINATE (ER) 50 MG TAB.ER.24H PO SCH (20:45)
[2018-11-11 20:54] LABS: Glucose,Whole Blood 202 mg/dL (75-99)
[2018-11-11] MEDS: INSULIN DETEMIR (LEVEMIR) 100 UNIT/ML SYR SQ SCH (20:54)
[2018-11-12] MEDS: ACETAMINOPHEN TAB 325 MG TAB PO PRN ×3 (00:11→21:24)
[2018-11-12] MEDS: METOCLOPRAMIDE 5 MG/ML 2 ML VIAL IVP SCH ×5 (00:11→23:11)
[2018-11-12] MEDS: HYDROmorphone 0.5 MG/0.5 ML SYRINGE IVP PRN ×3 (05:40→19:39)
[2018-11-12 05:43] LABS: Glucose,Whole Blood 203 mg/dL (75-99)
[2018-11-12] MEDS: HYDROCORTISONE 10 MG TAB PO SCH ×2 (06:26→21:21)
[2018-11-12] MEDS: INSULIN ASPART (NovoLOG) 100 UNIT/ML VIAL SQ SCH ×7 (06:27→21:10)
--- NOTE | 2018-11-12 08:11 | P.PN ---
Subjective Progress Note Date: 11/12/18 Principal diagnosis: Descending aortic aneurysm measuring 3.6 cm. History of occipital neuralgia, hypertension, hyperlipidemia, insulin-dependent diabetes mellitus, kidney disease, questionable parathyroid disease, DVT, obstructive sleep apnea with CPAP use, adrenal insufficiency, arthritis, family history of heart disease and cancer. The patient is currently lying in bed in no acute distress does state that she is feeling slightly better, headache is slightly improved, states she had 1 episode of chest pain in the last 24 hours which she said resolved without intervention. No other new complaints. Objective - Vital Signs Vital signs: Vital Signs Temp 98.8 F 11/12/18 03:20 Pulse 75 11/12/18 03:20 Resp 16 11/12/18 03:20 BP 142/64 11/12/18 03:20 Pulse Ox 94 L 11/12/18 03:20 Intake & Output 11/11/18 11/12/18 11/12/18 18:59 06:59 18:59 Intake Total 200 100 Balance 200 100 Weight 66.3 kg Intake: Oral 200 100 Other: Voiding Method Toilet # Voids 1 1 # Bowel Movements 1 - Constitutional General appearance: Present: cooperative, no acute distress - Respiratory Details: Lungs sounds clear bilaterally. Respirations even, nonlabored. Currently on room air with oxygen saturation 94%. - Cardiovascular Details: S1, S2 present. Regular rate and rhythm, sinus rhythm on telemetry. Palpable bilaterally. No edema present. No calf pain or tenderness noted. - Gastrointestinal Gastrointestinal Comment(s): Abdomen soft, nontender, nondistended. Active bowel sounds present 4 quadrants. Tolerating diet. Positive bowel movement. - Genitourinary Genitourinary Comment(s): Continues to void. - Integumentary Integumentary Comment(s): Skin is warm and dry with evidence of good perfusion. - Neurologic Neurologic: Present: CNII-XII intact - Musculoskeletal Musculoskeletal: Present: gait normal, strength equal bilaterally - Psychiatric Psychiatric: Present: A&O x's 3, appropriate affect, intact judgment & insight - Allied health notes Allied health notes reviewed: nursing - Labs CBC & Chem 7: 11/09/18 19:40 11/09/18 18:58 Labs: Abnormal Lab Results - Last 24 Hours (Table) 11/11/18 11/11/18 11/11/18 Range/Units 12:03 16:51 20:52 POC Glucose (mg/dL) 186 H 187 H 202 H (75-99) mg/dL 11/12/18 Range/Units 05:41 POC Glucose (mg/dL) 203 H (75-99) mg/dL Assessment and Plan Assessment: 1. Descending aortic aneurysm measuring 3.6 cm 2. Occipital neuralgia 3. Hypertension 4. Hyperlipidemia 5. Insulin-dependent diabetes mellitus 6. Kidney disease 7. Possible parathyroid disease 8. History of DVT 9. ELIZABET with CPAP use 10. Adrenal insufficiency 11. Arthritis 12. Family history of heart disease Plan: 1. Descending aortic aneurysm management requires no emergent surgical intervention at this time, conservative treatment with follow-up with Dr. Major in 2-4 weeks. 2. Strict blood pressure control, management per cardiology 3. Continued medical management of other comorbid conditions per primary care, cardiology. 4. Will see again while hospitalized as needed. Time with Patient: Greater than 30
[2018-11-12] MEDS: ASPIRIN 81 MG PO SCH (08:56)
[2018-11-12] MEDS: PANTOPRAZOLE 40 MG/10 ML VIAL IVP SCH ×2 (08:56→21:22)
[2018-11-12] MEDS: SERTRALINE 50 MG TAB PO SCH (08:56)
[2018-11-12] MEDS: LISINOPRIL 10 MG TAB PO SCH ×2 (08:56→21:22)
[2018-11-12 12:06] LABS: Glucose,Whole Blood 238 mg/dL (75-99)
[2018-11-12] MEDS: HYDROCORTISONE 20 MG TAB PO SCH (12:34)
--- NOTE | 2018-11-12 12:57 | P.PN ---
Subjective Progress Note Date: 11/12/18 Principal diagnosis: Hypertension emergency This is a 68-year-old female patient was diabetes, hypertension, and dyslipidemia, who was admitted to the hospital with symptoms of chest discomfort associated with headache and was found to have severely elevated blood pressure. She was ruled out for acute coronary event. The EKG showed T-wave inversion in the lateral leads seems to be chronic. The computed tomography scan of the chest showed no PE but possible ulcer involving the descending thoracic aorta. She was seen by the cardiothoracic team and the plan for a conservative approach at this point and follow-up as an outpatient. On follow-up with the patient today, 11/12/2018, she stated that she is feeling better. She still have mild chest discomfort. The headache has improved. The blood pressure is much better. The echo revealed normal LV function. The patient underwent a stress test recently and that came in to be unremarkable. If she continues to have a chest discomfort in the next 24 hours, she needs to have a coronary angiogram. Objective - Vital Signs Vital signs: Vital Signs Temp 97.1 F L 11/12/18 08:00 Pulse 73 11/12/18 08:00 Resp 16 11/12/18 08:00 BP 135/76 11/12/18 08:00 Pulse Ox 92 L 11/12/18 08:00 Intake & Output 11/11/18 11/12/18 11/12/18 18:59 06:59 18:59 Intake Total 200 100 10 Balance 200 100 10 Weight 66.3 kg Intake: IV 10 Invasive Line 1 5 Invasive Line 2 5 Oral 200 100 0 Other: Voiding Method Toilet # Voids 1 1 # Bowel Movements 1 - Constitutional General appearance: Present: no acute distress - Respiratory Respiratory: bilateral: CTA - Cardiovascular Rhythm: regular Heart sounds: normal: S1, S2 - Labs CBC & Chem 7: 11/09/18 19:40 11/09/18 18:58 Labs: Abnormal Lab Results - Last 24 Hours (Table) 11/11/18 11/11/18 11/12/18 Range/Units 16:51 20:52 05:41 POC Glucose (mg/dL) 187 H 202 H 203 H (75-99) mg/dL 11/12/18 Range/Units 12:00 POC Glucose (mg/dL) 238 H (75-99) mg/dL Assessment and Plan Assessment: Assessment #1 uncontrolled hypertension #2 chest discomfort probably secondary to above #3 headache probably secondary to the above #4 thoracic aortic aneurysm #5 multiple comorbid conditions Plan #1 the patient was ruled out for acute coronary event #2 the thoracic aortic aneurysm has been managed by the cardiothoracic team who recommended conservative approach at this point #3 the blood pressure seems to be better controlled on the current medical regimen #4 the echo showed normal LV function #5 I did recommend giving the patient one more day #6 if she continues to have any chest discomfort I would recommend proceeding with coronary angiogram
[2018-11-12 15:28] LABS: Glucose,Whole Blood 72 mg/dL (75-99)
[2018-11-12 17:17] LABS: Glucose,Whole Blood 125 mg/dL (75-99)
[2018-11-12] MEDS: PANTOPRAZOLE 40 MG TABLET PO SCH (20:01)
[2018-11-12 21:01] LABS: Glucose,Whole Blood 121 mg/dL (75-99)
[2018-11-12] MEDS: ATORVASTATIN 40 MG TAB PO SCH (21:21)
[2018-11-12] MEDS: INSULIN DETEMIR (LEVEMIR) 100 UNIT/ML SYR SQ SCH (21:22)
[2018-11-12] MEDS: METOPROLOL SUCCINATE (ER) 50 MG TAB.ER.24H PO SCH (21:22)
[2018-11-13] MEDS: HYDROmorphone 0.5 MG/0.5 ML SYRINGE IVP PRN ×4 (01:35→21:14)
[2018-11-13] MEDS: ACETAMINOPHEN TAB 325 MG TAB PO PRN (05:27)
[2018-11-13 05:56] LABS: Glucose,Whole Blood 188 mg/dL (75-99)
[2018-11-13 06:50] LABS: Glucose,Whole Blood 174 mg/dL (75-99)
[2018-11-13] MEDS: METOCLOPRAMIDE 5 MG/ML 2 ML VIAL IVP SCH ×4 (06:56→23:16)
[2018-11-13] MEDS: HYDROCORTISONE 10 MG TAB PO SCH ×2 (06:56→21:13)
[2018-11-13] MEDS: INSULIN ASPART (NovoLOG) 100 UNIT/ML VIAL SQ SCH ×7 (06:57→21:23)
[2018-11-13] MEDS: LISINOPRIL 10 MG TAB PO SCH ×2 (07:51→21:04)
[2018-11-13] MEDS: ASPIRIN 81 MG PO SCH (07:51)
[2018-11-13] MEDS: PANTOPRAZOLE 40 MG/10 ML VIAL IVP SCH ×2 (07:51→21:04)
[2018-11-13] MEDS: SERTRALINE 50 MG TAB PO SCH (07:51)
[2018-11-13 12:13] LABS: Glucose,Whole Blood 68 mg/dL (75-99)
[2018-11-13 12:34] LABS: Glucose,Whole Blood 65 mg/dL (75-99)
[2018-11-13] MEDS: BUTALB/APAP/CAFF 50-325-40MG TAB PO PRN ×3 (12:34→23:15)
[2018-11-13] MEDS: HYDROCORTISONE 20 MG TAB PO SCH (12:35)
[2018-11-13 12:36] LABS: Glucose,Whole Blood 80 mg/dL (75-99)
[2018-11-13] MEDS ORDERED: SODIUM CHLORIDE 0.9% 1,000 ML in EMPTY BAG 1 BAG IV ONE (13:28)
[2018-11-13] MEDS ORDERED: ALPRAZolam 0.25 MG TAB PO PRN (13:28)
[2018-11-13] MEDS ORDERED: NITROGLYCERIN SL TABS 0.4 MG TAB SUBLINGUAL PRN (13:28)
[2018-11-13] MEDS ORDERED: ALPRAZolam 0.5 MG TAB PO PRN (13:28)
--- NOTE | 2018-11-13 16:30 | P.PN ---
Subjective Progress Note Date: 11/13/18 This is a 68-year-old female patient was diabetes, hypertension, and dyslipidemia, who was admitted to the hospital with symptoms of chest discomfort associated with headache and was found to have severely elevated blood pressure. She was ruled out for acute coronary event. The EKG showed T-wave inversion in the lateral leads seems to be chronic. The computed tomography scan of the chest showed no PE but possible ulcer involving the descending thoracic aorta. She was seen by the cardiothoracic team and the plan for a conservative approach at this point and follow-up as an outpatient. On follow-up with the patient today, she did complain of having an episode of chest discomfort earlier this morning. At the time of my examination she is currently chest pain-free. Because of the persistent chest discomfort in spite of recent normal stress test patient has been advised to undergo cardiac catheterization, the risks and the benefits were explained to her in detail. This will be performed tomorrow by Dr. Sharma. Objective - Vital Signs Vital signs: Vital Signs Temp 98.7 F 11/13/18 12:00 Pulse 72 11/13/18 16:00 Resp 16 11/13/18 16:00 BP 128/60 11/13/18 12:00 Pulse Ox 100 11/13/18 12:00 Intake & Output 11/12/18 11/13/18 11/13/18 18:59 06:59 18:59 Intake Total 375 540 680 Balance 375 540 680 Weight 66.5 kg Intake: IV 15 60 Invasive Line 1 10 30 Invasive Line 2 5 30 Oral 360 480 680 Other: Voiding Method Toilet Toilet # Voids 3 1 # Bowel Movements 1 - Exam PHYSICAL EXAMINATION: GENERAL: 68-year-old female in no acute distress at the time of my examination HEENT: Head is atraumatic, normocephalic. Pupils equal, round. Sclera anicteric. Conjunctiva are clear. Mucous membranes of the mouth are moist. Neck is supple. There is no elevated jugular venous pressure. No carotid bruit is heard. HEART EXAMINATION: Heart S1, S2 normal. No murmur or gallop heard. CHEST EXAMINATION: Lungs are clear to auscultation and precussion. No chest wall tenderness is noted on palpation or with deep breathing. ABDOMEN: Soft, nontender. Bowel sounds are heard. No organomegaly noted. EXTREMITIES: 2+ peripheral pulses with no evidence of peripheral edema and no calf tenderness noted. NEUROLOGIC patient is awake, alert and oriented 3 . . - Labs CBC & Chem 7: 11/09/18 19:40 11/09/18 18:58 Labs: Abnormal Lab Results - Last 24 Hours (Table) 11/12/18 11/12/18 11/13/18 Range/Units 17:04 21:00 05:54 POC Glucose (mg/dL) 125 H 121 H 188 H (75-99) mg/dL 11/13/18 11/13/18 11/13/18 Range/Units 06:48 12:03 12:20 POC Glucose (mg/dL) 174 H 68 L 65 L (75-99) mg/dL Assessment and Plan Plan: Assessment #1 uncontrolled hypertension #2 chest discomfort probably secondary to above #3 headache probably secondary to the above #4 thoracic aortic aneurysm #5 multiple comorbid conditions Plan Because of the recurrence of chest discomfort, in spite of the recent negative stress test, patient has been advised to undergo cardiac catheterization. The risks and benefits were explained in detail and the patient is willing to pro ceed. This will be performed tomorrow by Dr. Sharma. DNP note has been reviewed, I agree with a documented findings and plan of care. Patient was seen and examined.
[2018-11-13 17:06] LABS: Glucose,Whole Blood 219 mg/dL (75-99)
--- NOTE | 2018-11-13 18:23 | P.PN ---
Subjective Progress Note Date: 11/12/18 Patient seen and examined in follow-up today, reports that her headache has resolved. Denies any chest pain shortness of breath, reports her nausea is much improved as well, denies any vomiting or diarrhea. Patient denies any abdominal pain Blood pressure also improved today 132/72. The patient also seen by cardiothoracic surgery regarding thoracic aortic aneurysm, cardiology contemplating left heart catheterization as the patient has had intermittent bouts of persisting chest pain despite negative heart cath Objective - Vital Signs Vital signs: Vital Signs Temp 98.6 F 11/12/18 15:53 Pulse 68 11/12/18 15:53 Resp 16 11/12/18 15:53 BP 114/74 11/12/18 15:53 Pulse Ox 93 L 11/12/18 15:53 Intake & Output 11/11/18 11/12/18 11/12/18 18:59 06:59 18:59 Intake Total 200 100 135 Balance 200 100 135 Weight 66.3 kg Intake: IV 15 Invasive Line 1 10 Invasive Line 2 5 Oral 200 100 120 Other: Voiding Method Toilet # Voids 1 1 3 # Bowel Movements 1 1 - Exam Constitutional: No acute distress, conversant, pleasant Eyes: Anicteric sclerae, moist conjunctiva, no lid-lag, PERRLA ENMT: NC/AT,Oropharynx clear, no erythema, exudates Neck:Supple, FROM, no masses, or JVD, No carotid bruits; No thyromegaly Lungs: Clear to auscultation, Clear to percussion, Normal respiratory effort, no accessory muscle use Cardiovascular: Heart regular in rate and rhythm, No murmurs, gallops, or rubs no peripheral edema Abdominal: Soft Nontender, nom distended, no guarding, no rebound or rigidity, Normoactive bowel sounds No hepatomegaly, No splenomegaly, No palpable mass No abdominal wall hernia noted Skin: Normal temperature, tone, texture, turgor, No induration No subcutaneous nodules, No rash, lesions, No ulcers Extremities:No digital cyanosis No clubbing, Pedal pulses intact and symmetrical Radial pulses intact and symmetrical Normal gait and station, No calf tenderness Psychiatric: Alert and oriented to person, place and time, Appropriate affect Intact judgement Neuro: Muscles Strength 5/5 in all 4 extremities, Sensation to light touch grossly present throughout, Cranial nerves II-XII grossly intact. No focal sensory deficits - Labs CBC & Chem 7: 11/09/18 19:40 11/09/18 18:58 Labs: Abnormal Lab Results - Last 24 Hours (Table) 11/11/18 11/11/18 11/12/18 Range/Units 16:51 20:52 05:41 POC Glucose (mg/dL) 187 H 202 H 203 H (75-99) mg/dL 11/12/18 11/12/18 Range/Units 12:00 15:11 POC Glucose (mg/dL) 238 H 72 L (75-99) mg/dL Assessment and Plan (1) Atypical chest pain Narrative/Plan: * EKG showing T-wave inversions and some ST depression in precordial leads, troponins have been negative * D-dimer slightly elevated, CTA of chest negative for PE but shows possible penetrating ulcer or focal aneurysm in the medial aspect of the proximal descending aorta * Echocardiogram ordered and is pending Current Visit: Yes Status: Resolved Code(s): R07.89 - OTHER CHEST PAIN SNOMED Code(s): 681596425 (2) Nausea & vomiting Narrative/Plan: * Continue Zofran and Reglan as needed * Possibly secondary to ulcer Current Visit: No Status: Acute Code(s): R11.2 - NAUSEA WITH VOMITING, UNSPECIFIED SNOMED Code(s): 40828447 (3) Occipital neuritis Narrative/Plan: * Likely cause of the patient's headache in conjunction with her elevated blood pressures * continue current pain management * CT head negative for any acute abnormality Current Visit: No Status: Acute Code(s): M54.81 - OCCIPITAL NEURALGIA SNOMED Code(s): 06899686 (4) DM type 2 (diabetes mellitus, type 2) Narrative/Plan: * BG relatively stable * Continue insulin regimen Current Visit: No Status: Chronic Code(s): E11.9 - TYPE 2 DIABETES MELLITUS WITHOUT COMPLICATIONS SNOMED Code(s): 71632069 (5) Hypertensive emergency Narrative/Plan: * BP significantly improved today and is now normalized * Continue current regimen and add IV hydralazine ( if unable to keep her PO meds down will have to switch to IV regimen) * continue to follow BP closely Current Visit: Yes Status: Resolved Code(s): I16.1 - HYPERTENSIVE EMERGENCY SNOMED Code(s): 338487487250609 (6) Thoracic aneurysm without mention of rupture Narrative/Plan: * CTA of the aorta showed abnormal possible aneurysm in the proximal descending aorta * Currently thoracic surgery recommending medical management at this time no surgical interventions indicated Current Visit: Yes Status: Acute Code(s): I71.2 - THORACIC AORTIC ANEURYSM, WITHOUT RUPTURE SNOMED Code(s): 321507260 Plan: disposition * Patient doing much better today , cardiology contemplating left heart catheterization
--- NOTE | 2018-11-13 18:24 | P.PN ---
Subjective Progress Note Date: 11/13/18 Patient seen and examined in follow-up today, reports that her headache has resolved. Denies any chest pain shortness of breath, reports her nausea is much improved as well, denies any vomiting or diarrhea. Patient denies any abdominal pain Blood pressure also improved today 132/72. The patient also seen by cardiothoracic surgery regarding thoracic aortic aneurysm, cardiology contemplating left heart catheterization as the patient has had intermittent bouts of persisting chest pain despite negative heart cath Objective - Vital Signs Vital signs: Vital Signs Temp 98.3 F 11/13/18 16:00 Pulse 90 11/13/18 16:00 Resp 16 11/13/18 16:00 BP 138/72 11/13/18 16:00 Pulse Ox 94 L 11/13/18 16:00 Intake & Output 11/12/18 11/13/18 11/13/18 18:59 06:59 18:59 Intake Total 375 540 680 Balance 375 540 680 Weight 66.5 kg Intake: IV 15 60 Invasive Line 1 10 30 Invasive Line 2 5 30 Oral 360 480 680 Other: Voiding Method Toilet Toilet # Voids 3 1 # Bowel Movements 1 - Exam Constitutional: No acute distress, conversant, pleasant Eyes: Anicteric sclerae, moist conjunctiva, no lid-lag, PERRLA ENMT: NC/AT,Oropharynx clear, no erythema, exudates Neck:Supple, FROM, no masses, or JVD, No carotid bruits; No thyromegaly Lungs: Clear to auscultation, Clear to percussion, Normal respiratory effort, no accessory muscle use Cardiovascular: Heart regular in rate and rhythm, No murmurs, gallops, or rubs no peripheral edema Abdominal: Soft Nontender, nom distended, no guarding, no rebound or rigidity, Normoactive bowel sounds No hepatomegaly, No splenomegaly, No palpable mass No abdominal wall hernia noted Skin: Normal temperature, tone, texture, turgor, No induration No subcutaneous nodules, No rash, lesions, No ulcers Extremities:No digital cyanosis No clubbing, Pedal pulses intact and symmetrical Radial pulses intact and symmetrical Normal gait and station, No calf tenderness Psychiatric: Alert and oriented to person, place and time, Appropriate affect Intact judgement Neuro: Muscles Strength 5/5 in all 4 extremities, Sensation to light touch grossly present throughout, Cranial nerves II-XII grossly intact. No focal sensory deficits - Labs CBC & Chem 7: 11/09/18 19:40 11/09/18 18:58 Labs: Abnormal Lab Results - Last 24 Hours (Table) 11/12/18 11/13/18 11/13/18 Range/Units 21:00 05:54 06:48 POC Glucose (mg/dL) 121 H 188 H 174 H (75-99) mg/dL 11/13/18 11/13/18 11/13/18 Range/Units 12:03 12:20 17:02 POC Glucose (mg/dL) 68 L 65 L 219 H (75-99) mg/dL Assessment and Plan (1) Atypical chest pain Narrative/Plan: * EKG showing T-wave inversions and some ST depression in precordial leads, troponins have been negative * D-dimer slightly elevated, CTA of chest negative for PE but shows possible penetrating ulcer or focal aneurysm in the medial aspect of the proximal descending aorta * Echocardiogram ordered and is pending Current Visit: Yes Status: Resolved Code(s): R07.89 - OTHER CHEST PAIN SNOMED Code(s): 962228417 (2) Nausea & vomiting Narrative/Plan: * Continue Zofran and Reglan as needed * Possibly secondary to ulcer Current Visit: No Status: Acute Code(s): R11.2 - NAUSEA WITH VOMITING, UNSPECIFIED SNOMED Code(s): 11604379 (3) Occipital neuritis Narrative/Plan: * Likely cause of the patient's headache in conjunction with her elevated blood pressures * Patient currently on Dilaudid, we'll plan to switch to [place] 10/325 mg PO q 6 prn * CT head negative for any acute abnormality Current Visit: No Status: Acute Code(s): M54.81 - OCCIPITAL NEURALGIA SNOMED Code(s): 27911237 (4) DM type 2 (diabetes mellitus, type 2) Narrative/Plan: * BG relatively stable * Continue insulin regimen Current Visit: No Status: Chronic Code(s): E11.9 - TYPE 2 DIABETES MELLITUS WITHOUT COMPLICATIONS SNOMED Code(s): 73167358 (5) Hypertensive emergency Narrative/Plan: * BP significantly improved today and is now normalized * Continue current regimen and add IV hydralazine ( if unable to keep her PO meds down will have to switch to IV regimen) * continue to follow BP closely Current Visit: Yes Status: Resolved Code(s): I16.1 - HYPERTENSIVE EMERGENCY SNOMED Code(s): 608711000207533 (6) Thoracic aneurysm without mention of rupture Narrative/Plan: * CTA of the aorta showed abnormal possible aneurysm in the proximal descending aorta * Currently thoracic surgery recommending medical management at this time no surgical interventions indicated Current Visit: Yes Status: Acute Code(s): I71.2 - THORACIC AORTIC ANEURYSM, WITHOUT RUPTURE SNOMED Code(s): 671172131 Plan: disposition * Patient doing much better today , cardiology contemplating left heart catheterization
[2018-11-13] MEDS: ATORVASTATIN 40 MG TAB PO SCH (21:04)
[2018-11-13] MEDS: METOPROLOL SUCCINATE (ER) 50 MG TAB.ER.24H PO SCH (21:04)
[2018-11-13] MEDS: INSULIN DETEMIR (LEVEMIR) 100 UNIT/ML SYR SQ SCH (21:23)
[2018-11-13 21:24] LABS: Glucose,Whole Blood 110 mg/dL (75-99)
[2018-11-14] MEDS: ACETAMINOPHEN TAB 325 MG TAB PO PRN ×3 (02:08→19:13)
[2018-11-14] MEDS: HYDROmorphone 0.5 MG/0.5 ML SYRINGE IVP PRN ×4 (02:57→21:08)
[2018-11-14] MEDS: INSULIN ASPART (NovoLOG) 100 UNIT/ML VIAL SQ SCH ×7 (05:56→22:02)
[2018-11-14] MEDS ORDERED: ASPIRIN 325 MG TAB PO ONE (06:00)
[2018-11-14] MEDS ORDERED: ATORVASTATIN 80 MG TAB PO ONE (06:00)
[2018-11-14] MEDS: BUTALB/APAP/CAFF 50-325-40MG TAB PO PRN ×3 (06:01→19:11)
[2018-11-14] MEDS: METOCLOPRAMIDE 5 MG/ML 2 ML VIAL IVP SCH ×4 (06:01→22:53)
[2018-11-14] MEDS: HYDROCORTISONE 10 MG TAB PO SCH ×2 (06:04→21:09)
[2018-11-14 06:12] LABS: Glucose,Whole Blood 266 mg/dL (75-99)
[2018-11-14] MEDS: PANTOPRAZOLE 40 MG/10 ML VIAL IVP SCH ×2 (08:20→20:03)
[2018-11-14] MEDS: ASPIRIN 81 MG PO SCH (08:20)
[2018-11-14] MEDS: SERTRALINE 50 MG TAB PO SCH (08:20)
[2018-11-14] MEDS: LISINOPRIL 10 MG TAB PO SCH ×2 (08:20→20:01)
[2018-11-14 08:29] LABS: Basophils % (A) 1 %; Eosinophils # (A) 0.1 k/uL (0-0.7); Eosinophils % (A) 2 %; HCT 37.4 % (34.0-46.0); HGB 11.9 gm/dL (11.4-16.0); Hypochromasia Moderate; Lymphocytes # (A) 1.4 k/uL (1.0-4.8); Lymphocytes % (A) 23 %; MCH 27.5 pg (25.0-35.0); MCHC 31.8 g/dL (31.0-37.0); MCV 86.6 fL (80.0-100.0); Mean Platelet Volume 8.7; Monocytes # (A) 0.5 k/uL (0-1.0); Monocytes % (A) 7 %; Neutrophils % (A) 66 %; Platelet Count 190 k/uL (150-450); RBC 4.31 m/uL (3.80-5.40); RDW 14.1 % (11.5-15.5); WBC 6.2 k/uL (3.8-10.6)
[2018-11-14 08:46] LABS: Anion Gap 5 mmol/L; Blood Urea Nitrogen 21 mg/dL (7-17); Carbon Dioxide 26 mmol/L (22-30); Chloride 107 mmol/L (98-107); Glucose 242 mg/dL (74-99); Potassium 4.3 mmol/L (3.5-5.1); Sodium 138 mmol/L (137-145)
[2018-11-14 11:56] LABS: Glucose,Whole Blood 245 mg/dL (75-99)
[2018-11-14] MEDS: HYDROCORTISONE 20 MG TAB PO SCH ×3 (12:47→20:02)
[2018-11-14 16:57] LABS: Glucose,Whole Blood 298 mg/dL (75-99)
--- NOTE | 2018-11-14 19:13 | P.PN ---
Subjective Progress Note Date: 11/14/18 Patient seen and examined in follow-up today, reports that her headache has resolved. Denies any chest pain shortness of breath, reports her nausea is much improved as well, denies any vomiting or diarrhea. Patient denies any abdominal pain The patient also seen by cardiothoracic surgery regarding thoracic aortic aneurysm, patient scheduled for left heart catheterization today but it has been postponed until tomorrow Objective - Vital Signs Vital signs: Vital Signs Temp 97.9 F 11/14/18 16:00 Pulse 59 L 11/14/18 16:00 Resp 16 11/14/18 16:00 BP 142/89 11/14/18 16:00 Pulse Ox 94 L 11/14/18 16:00 Intake & Output 11/14/18 11/14/18 11/15/18 06:59 18:59 06:59 Intake Total 1110 510 Balance 1110 510 Weight 67.4 kg Intake: IV 30 30 Invasive Line 2 30 30 Intake, IV Titration 600 Amount Sodium Chloride 0.9% 1, 600 000 ml In Empty Bag 1 bag @ 1 ML/KG/HR 66.5 mls/hr IV .[id number] ONE Rx#: [id number] Oral 480 480 Other: Voiding Method Toilet Toilet # Voids 2 1 - Exam Constitutional: No acute distress, conversant, pleasant Eyes: Anicteric sclerae, moist conjunctiva, no lid-lag, PERRLA ENMT: NC/AT,Oropharynx clear, no erythema, exudates Neck:Supple, FROM, no masses, or JVD, No carotid bruits; No thyromegaly Lungs: Clear to auscultation, Clear to percussion, Normal respiratory effort, no accessory muscle use Cardiovascular: Heart regular in rate and rhythm, No murmurs, gallops, or rubs no peripheral edema Abdominal: Soft Nontender, nom distended, no guarding, no rebound or rigidity, Normoactive bowel sounds No hepatomegaly, No splenomegaly, No palpable mass No abdominal wall hernia noted Skin: Normal temperature, tone, texture, turgor, No induration No subcutaneous nodules, No rash, lesions, No ulcers Extremities:No digital cyanosis No clubbing, Pedal pulses intact and symmetrical Radial pulses intact and symmetrical Normal gait and station, No calf tenderness Psychiatric: Alert and oriented to person, place and time, Appropriate affect Intact judgement Neuro: Muscles Strength 5/5 in all 4 extremities, Sensation to light touch grossly present throughout, Cranial nerves II-XII grossly intact. No focal sensory deficits - Labs CBC & Chem 7: 11/14/18 06:34 11/14/18 06:34 Labs: Abnormal Lab Results - Last 24 Hours (Table) 11/13/18 11/14/18 11/14/18 Range/Units 21:23 06:10 06:34 BUN 21 H (7-17) mg/dL Glucose 242 H (74-99) mg/dL POC Glucose (mg/dL) 110 H 266 H (75-99) mg/dL 11/14/18 11/14/18 Range/Units 11:55 16:52 BUN (7-17) mg/dL Glucose (74-99) mg/dL POC Glucose (mg/dL) 245 H 298 H (75-99) mg/dL Assessment and Plan (1) Atypical chest pain Narrative/Plan: * EKG showing T-wave inversions and some ST depression in precordial leads, troponins have been negative * D-dimer slightly elevated, CTA of chest negative for PE but shows possible penetrating ulcer or focal aneurysm in the medial aspect of the proximal descending aorta * Echocardiogram ordered and is pending Current Visit: Yes Status: Resolved Code(s): R07.89 - OTHER CHEST PAIN SNOMED Code(s): 399353718 (2) Nausea & vomiting Narrative/Plan: * Continue Zofran and Reglan as needed * Possibly secondary to ulcer Current Visit: No Status: Acute Code(s): R11.2 - NAUSEA WITH VOMITING, UNSPECIFIED SNOMED Code(s): 61681197 (3) Occipital neuritis Narrative/Plan: * Likely cause of the patient's headache in conjunction with her elevated blood pressures * Patient currently on Dilaudid, we'll plan to switch to [place] 10/325 mg PO q 6 prn * CT head negative for any acute abnormality Current Visit: No Status: Acute Code(s): M54.81 - OCCIPITAL NEURALGIA SNOMED Code(s): 76049073 (4) DM type 2 (diabetes mellitus, type 2) Narrative/Plan: * BG relatively stable * Continue insulin regimen Current Visit: No Status: Chronic Code(s): E11.9 - TYPE 2 DIABETES MELLITUS WITHOUT COMPLICATIONS SNOMED Code(s): 30199990 (5) Hypertensive emergency Narrative/Plan: * BP significantly improved today and is now normalized * Continue current regimen and add IV hydralazine ( if unable to keep her PO meds down will have to switch to IV regimen) * continue to follow BP closely Current Visit: Yes Status: Resolved Code(s): I16.1 - HYPERTENSIVE EMERGENCY SNOMED Code(s): 372091418283351 (6) Thoracic aneurysm without mention of rupture Narrative/Plan: * CTA of the aorta showed abnormal possible aneurysm in the proximal descending aorta * Currently thoracic surgery recommending medical management at this time no surgical interventions indicated Current Visit: Yes Status: Acute Code(s): I71.2 - THORACIC AORTIC ANEURYSM, WITHOUT RUPTURE SNOMED Code(s): 805356275 Plan: disposition * Patient doing much better today , scheduled for left heart catheterization today but has been postponed tomorrow
[2018-11-14] MEDS: METOPROLOL SUCCINATE (ER) 50 MG TAB.ER.24H PO SCH (20:01)
[2018-11-14] MEDS: ATORVASTATIN 40 MG TAB PO SCH (20:01)
[2018-11-14 21:14] LABS: Glucose,Whole Blood 131 mg/dL (75-99)
[2018-11-14] MEDS: INSULIN DETEMIR (LEVEMIR) 100 UNIT/ML SYR SQ SCH (22:02)
[2018-11-15] MEDS: BUTALB/APAP/CAFF 50-325-40MG TAB PO PRN ×3 (01:36→13:32)
[2018-11-15] MEDS: HYDROmorphone 0.5 MG/0.5 ML SYRINGE IVP PRN ×2 (03:30→18:29)
[2018-11-15] MEDS: METOCLOPRAMIDE 5 MG/ML 2 ML VIAL IVP SCH ×4 (06:19→22:53)
[2018-11-15] MEDS: INSULIN ASPART (NovoLOG) 100 UNIT/ML VIAL SQ SCH ×7 (06:19→21:49)
[2018-11-15 06:20] LABS: Glucose,Whole Blood 184 mg/dL (75-99)
[2018-11-15] MEDS: HYDROCORTISONE 10 MG TAB PO SCH ×2 (06:22→21:46)
[2018-11-15 06:56] LABS: Basophils % (A) 0 %; Eosinophils # (A) 0.2 k/uL (0-0.7); Eosinophils % (A) 3 %; HCT 38.1 % (34.0-46.0); Hypochromasia Slight; Lymphocytes # (A) 1.5 k/uL (1.0-4.8); Lymphocytes % (A) 24 %; MCH 27.2 pg (25.0-35.0); MCHC 31.5 g/dL (31.0-37.0); MCV 86.5 fL (80.0-100.0); Mean Platelet Volume 8.9; Monocytes # (A) 0.4 k/uL (0-1.0); Monocytes % (A) 6 %; Neutrophils # (A) 4.1 k/uL (1.3-7.7); Neutrophils % (A) 65 %; Platelet Count 189 k/uL (150-450); RBC 4.41 m/uL (3.80-5.40); RDW 14.4 % (11.5-15.5); WBC 6.3 k/uL (3.8-10.6)
[2018-11-15 07:20] LABS: Anion Gap 6 mmol/L; Blood Urea Nitrogen 14 mg/dL (7-17); Calcium 9.9 mg/dL (8.4-10.2); Carbon Dioxide 28 mmol/L (22-30); Chloride 106 mmol/L (98-107); Glucose 157 mg/dL (74-99); Potassium 4.2 mmol/L (3.5-5.1); Sodium 140 mmol/L (137-145)
[2018-11-15] MEDS ORDERED: ATORVASTATIN 80 MG TAB PO STA (07:41)
[2018-11-15] MEDS ORDERED: ASPIRIN 325 MG TAB PO STA (07:41)
[2018-11-15] MEDS: ASPIRIN 81 MG PO SCH (07:43)
[2018-11-15] MEDS ORDERED: ADENOSINE 3 MG/ML 4 ML VIAL IVP ONE (08:00)
[2018-11-15] MEDS ORDERED: SODIUM CHLORIDE 0.9% 100 ML BAG ONE (08:00)
[2018-11-15] MEDS ORDERED: VERAPAMIL 2.5 MG/ML 2 ML AMP ONE (08:39)
[2018-11-15] MEDS ORDERED: LIDOCAINE 1% INJ 10MG/ML (20 ML MDV) ONE ×2 (08:39→09:27)
[2018-11-15] MEDS ORDERED: HEPARIN SODIUM 1,000 UN/ML (10ML VL) ONE (08:39)
[2018-11-15] MEDS ORDERED: ASPIRIN 325 MG TAB ONE (09:07)
[2018-11-15] MEDS ORDERED: ASPIRIN 325 MG TAB PO ONE (09:08)
[2018-11-15] MEDS ORDERED: IV FLUID CONTINUATION 1,000 ML IV ONE (09:08)
[2018-11-15] MEDS ORDERED: MIDAZOLAM (PF) 2 MG/2 ML VIAL IV ONE (09:13)
[2018-11-15] MEDS ORDERED: LIDOCAINE 1% INJ 10MG/ML (20 ML MDV) SQ ONE (09:18)
[2018-11-15] MEDS ORDERED: SODIUM CHLORIDE 0.9% 1,000 ML IV ONE (09:19)
[2018-11-15] MEDS ORDERED: VERAPAMIL SYRINGE (5 MG/10 ML) INTRAARTER ONE (09:20)
[2018-11-15] MEDS ORDERED: IOPAMIDOL-370 125ML BTL INJ ONE ×3 (09:48→10:11)
[2018-11-15] MEDS ORDERED: BIVALIRUDIN BOLUS 250 MG/50 ML IV ONE (10:04)
[2018-11-15] MEDS ORDERED: BIVALIRUDIN 250 MG in SODIUM CHLORIDE 0.9% 50 ML IV ONE (10:05)
[2018-11-15] MEDS ORDERED: RX INFO: IV CONTRAST WAS GIVEN 1 EACH MISC MISCELLANE PRN (10:17)
[2018-11-15] MEDS ORDERED: hydrALAZINE HCL 20 MG/ML 1 ML VIAL ONE (10:25)
--- NOTE | 2018-11-15 10:25 | P.PCN ---
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 Selective right and left coronary angiogram 2. Left heart catheterization APPROACH: Right femoral artery PROCEDURE DESCRIPTION: After obtaining an informed consent and explaining the procedure benefits, risks, and complications, the patient was brought to cardiac [facility]. Local anesthesia was performed using lidocaine subcutaneously. Initially I tried a right radial approach but the right subclavian is extremely tortuous and I could not engage the coronary some right radial approach. At that point the right femoral artery was cannulated using puncture technique, the guidewire passed easily, and a 6-Kh[place] sheath dilator assembly was advanced over the wire then the wire and dilator were removed and sheath was flushed. Selective left coronary angiogram was performed using JL4 catheters. Selective right coronary angiogram was performed using an AL-1. SELECTIVE CORONARY ANGIOGRAM: The right coronary artery: Is a medium caliber vessel and nondominant vessel and appeared to be angiographically normal Left main: Is angiographically normal The left circumflex: Is a large caliber vessel and is a dominant vessel. Its angiographically normal. The left anterior descending artery: The proximal LAD has intermediate lesion appeared to be in the range of 50-60%. There is aneurysmal dilation of the LAD at that point. The mid and distal LAD appears to be angiographically normal HEMODYNAMICS: The LVEDP was 12 mmHg without significant gradient across aortic valve POSTPROCEDURE MANAGEMENT: #1 medical treatment at this point. Consider oral nitrate #2 if the patient continues to have a chest discomfort I would perform an FFR of the LAD
[2018-11-15] MEDS ORDERED: hydrALAZINE HCL 20 MG/ML 1 ML VIAL IV ONE (10:26)
[2018-11-15] MEDS ORDERED: SODIUM CHLORIDE 0.9% 1,000 ML IV SCH (10:30)
[2018-11-15] MEDS: PANTOPRAZOLE 40 MG/10 ML VIAL IVP SCH ×2 (11:05→21:46)
[2018-11-15] MEDS: LISINOPRIL 10 MG TAB PO SCH ×2 (11:05→21:46)
[2018-11-15] MEDS: HYDROcodone/APAP 10-325MG 1 EACH TAB PO PRN ×2 (11:19→22:52)
[2018-11-15] MEDS: SERTRALINE 50 MG TAB PO SCH (11:20)
[2018-11-15 12:59] LABS: Glucose,Whole Blood 118 mg/dL (75-99)
[2018-11-15 17:09] LABS: Glucose,Whole Blood 130 mg/dL (75-99)
--- NOTE | 2018-11-15 18:25 | P.PN ---
Subjective Progress Note Date: 11/15/18 The patient was seen and examined at the bedside following cardiac catheterization. She was in good spirits and denied any active complaints. She denied chest pain, SOB, cough, fever, or chills. Further denied nausea, or vomiting. Objective - Vital Signs Vital signs: Vital Signs Temp 98 F 11/15/18 16:00 Pulse 91 11/15/18 16:00 Resp 18 11/15/18 16:00 BP 139/88 11/15/18 16:00 Pulse Ox 96 11/15/18 16:00 Intake & Output 11/14/18 11/15/18 11/15/18 18:59 06:59 18:59 Intake Total 510 1620 250 Balance 510 1620 250 Weight 68.1 kg Intake: IV 30 20 130 Invasive Line 2 30 20 Intake, IV Titration 600 Amount Sodium Chloride 0.9% 1, 600 000 ml In Empty Bag 1 bag @ 1 ML/KG/HR 66.5 mls/hr IV .[id number] [facility] Rx#: [id number] Oral 480 1000 120 Other: Voiding Method Toilet Toilet # Voids 1 2 - Exam General: Non-toxic, in no acute distress, appears stated age, normal weight HEENT: NC/AT, anicteric sclerae, moist conjunctiva, no lid-lag, PERRLA Cardiovascular: S1/S2 wnl, no murmurs, rubs, or gallops Lungs: Clear to auscultation, normal respiratory effort, no accessory muscle use Abdominal: Soft, non-tender, non-distended, no guarding, rebound, or rigidity Skin: Warm, dry Extremities: No edema or contractures Psychiatric: Alert and oriented to person, place and time, appropriate affect Neuro: CN II-XII grossly intact, Strength 5/5 in all 4 extremities, Speech intact, Sensation to light touch grossly intact throughout - Labs CBC & Chem 7: 11/15/18 06:32 11/15/18 06:32 Labs: Abnormal Lab Results - Last 24 Hours (Table) 11/14/18 11/15/18 11/15/18 Range/Units 21:13 06:19 06:32 Glucose 157 H (74-99) mg/dL POC Glucose (mg/dL) 131 H 184 H (75-99) mg/dL 05/30/19 05/30/19 Range/Units 12:57 17:04 Glucose (74-99) mg/dL POC Glucose (mg/dL) 118 H 130 H (75-99) mg/dL Assessment and Plan Plan: Chest pain, s/p cardiac cath -LAD showing proximal lesion in range of 50-60% -Plan for FFR of the LAD if patient continues to have chest discomfort -C/w Aspirin 81 mg qd and Lipitor 80 mg qhs Thoracic aortic aneurysm -Patient evaluated by cardiothoracic surgery and recommended for no emergent surgical intervention Diabetes mellitus type 2 -C/w levemir 32 U qhs and Insulin Aspart 21 U TIDAC -Blood glucose monitoring HTN -C/w Lisinopril and Clonidine Occipital neuritis -[place] PO q6h prn
[2018-11-15 21:45] LABS: Glucose,Whole Blood 295 mg/dL (75-99)
[2018-11-15] MEDS: ATORVASTATIN 40 MG TAB PO SCH (21:46)
[2018-11-15] MEDS: INSULIN DETEMIR (LEVEMIR) 100 UNIT/ML SYR SQ SCH (21:46)
[2018-11-15] MEDS: METOPROLOL SUCCINATE (ER) 50 MG TAB.ER.24H PO SCH (21:46)
[2018-11-16] MEDS: ACETAMINOPHEN TAB 325 MG TAB PO PRN (02:20)
[2018-11-16] MEDS: BUTALB/APAP/CAFF 50-325-40MG TAB PO PRN (02:20)
[2018-11-16 06:12] LABS: Glucose,Whole Blood 80 mg/dL (75-99)
[2018-11-16] MEDS: INSULIN ASPART (NovoLOG) 100 UNIT/ML VIAL SQ SCH ×4 (06:32→12:54)
[2018-11-16] MEDS: HYDROcodone/APAP 10-325MG 1 EACH TAB PO PRN ×2 (06:36→12:58)
[2018-11-16] MEDS: METOCLOPRAMIDE 5 MG/ML 2 ML VIAL IVP SCH ×2 (06:37→12:54)
[2018-11-16] MEDS: HYDROCORTISONE 10 MG TAB PO SCH (06:37)
[2018-11-16 08:44] VITALS: TEMP 98.5
[2018-11-16] MEDS: SERTRALINE 50 MG TAB PO SCH (08:58)
[2018-11-16] MEDS: ASPIRIN 81 MG PO SCH (08:58)
[2018-11-16] MEDS: LISINOPRIL 10 MG TAB PO SCH (08:58)
[2018-11-16] MEDS: PANTOPRAZOLE 40 MG/10 ML VIAL IVP SCH (08:59)
[2018-11-16 11:44] VITALS: BP 145/76; PULSE 67; RESP 18
[2018-11-16 11:48] LABS: Glucose,Whole Blood 197 mg/dL (75-99)
[2018-11-16 15:01] LABS: Glucose,Whole Blood 89 mg/dL (75-99)
[2018-11-16 15:14] LABS: Glucose,Whole Blood 88 mg/dL (75-99)
--- NOTE | 2018-11-16 16:40 | P.PN ---
Subjective Progress Note Date: 11/16/18 This is a 68-year-old female patient was diabetes, hypertension, and dyslipidemia, who was admitted to the hospital with symptoms of chest discomfort associated with headache and was found to have severely elevated blood pressure. She was ruled out for acute coronary event. The EKG showed T-wave inversion in the lateral leads seems to be chronic. The computed tomography scan of the chest showed no PE but possible ulcer involving the descending thoracic aorta. She was seen by the cardiothoracic team and the plan for a conservative approach at this point and follow-up as an outpatient. On follow-up with the patient today, she did complain of having an episode of chest discomfort earlier this morning. At the time of my examination she is currently chest pain-free. Because of the persistent chest discomfort in spite of recent normal stress test patient has been advised to undergo cardiac catheterization, the risks and the benefits were explained to her in detail. This will be performed tomorrow by Dr. Sharma. 11/16/2018 She underwent a cardiac catheterization yesterday, medical therapy was advised. She was found to have proximate 50% lesion in the LAD. She was seen and e xamined this morning, feels well, denies any chest pain or difficulty in breathing. Hemodynamically stable. Objective - Vital Signs Vital signs: Vital Signs Temp 98.5 F 11/16/18 08:05 Pulse 67 11/16/18 11:35 Resp 18 11/16/18 11:35 BP 145/76 11/16/18 11:35 Pulse Ox 93 L 11/16/18 11:35 Intake & Output 11/15/18 11/16/18 11/16/18 18:59 06:59 18:59 Intake Total 490 560 360 Output Total 375 250 200 Balance 115 310 160 Weight 68.7 kg Intake: IV 130 Intake, IV Titration 560 Amount Sodium Chloride 0.9% 1, 560 000 ml @ 75 mls/hr IV . [id number] [facility] Rx#:[id number] Oral 360 360 Output: Urine 375 250 200 Other: Voiding Method Indwelling Catheter Indwelling Catheter - Exam PHYSICAL EXAMINATION: GENERAL: 68-year-old female in no acute distress at the time of my examination HEENT: Head is atraumatic, normocephalic. Pupils equal, round. Sclera anicteric. Conjunctiva are clear. Mucous membranes of the mouth are moist. Neck is supple. There is no elevated jugular venous pressure. No carotid bruit is heard. HEART EXAMINATION: Heart S1, S2 normal. No murmur or gallop heard. CHEST EXAMINATION: Lungs are clear to auscultation and precussion. No chest wall tenderness is noted on palpation or with deep breathing. ABDOMEN: Soft, nontender. Bowel sounds are heard. No organomegaly noted. EXTREMITIES: 2+ peripheral pulses with no evidence of peripheral edema and no calf tenderness noted. Right radial site clean and dry good distal pulse, right groin soft, no evidence of hematoma. NEUROLOGIC patient is awake, alert and oriented 3 . . - Labs CBC & Chem 7: 11/15/18 06:32 11/15/18 06:32 Labs: Abnormal Lab Results - Last 24 Hours (Table) 11/15/18 11/15/18 11/16/18 Range/Units 17:04 21:44 11:45 POC Glucose (mg/dL) 130 H 295 H 197 H (75-99) mg/dL Assessment and Plan Plan: Assessment #1 uncontrolled hypertension #2 chest discomfort probably secondary to above #3 headache probably secondary to the above #4 thoracic aortic aneurysm #5 multiple comorbid conditions Plan cardiac catheterization was performed which revealed a 50-60% lesion in the LAD and medical therapy was advised. From cardiology's perspective, patient may be able to be discharged home today. We will make a follow-up appointment in the office post discharge. DNP note has been reviewed, I agree with a documented findings and plan of care. Patient was seen and examined.
[2018-11-16] MEDS ORDERED: PANTOPRAZOLE 40 MG TABLET PO SCH (17:30)
--- NOTE | 2018-11-16 19:33 | P.DS ---
Providers Date of admission: 11/11/18 09:58 Expected date of discharge: 11/16/18 Attending physician: Evaristo Solis MD Consults: 11/09/18 21:40 Consult Physician Urgent Consulting Provider: Warren Rosenberg Consult Reason/Comments: chest pain Do you want consulting provider notified?: Yes 11/10/18 14:13 Consult Physician Routine Consulting Provider: Beto Ball Consult Reason/Comments: Headache, occipitla neuritis Do you want consulting provider notified?: Yes 11/10/18 17:49 Consult Physician Routine Consulting Provider: Mayco Major Consult Reason/Comments: abnormal CTA, r/o aortic aneurysm Do you want consulting provider notified?: Yes 11/15/18 16:19 Consult Physician Urgent Consulting Provider: Tyler Barakat Consult Reason/Comments: Known to Dr, 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 The patient reported L sided chest pain w/ radiation to the jaw with nausea, vomiting, dizziness, and shortness of breath, 10/10, and stabbing in nature. The patient was admitted under observation for rule out ACS. She was evaluated by Cardiology and underwent a cardiac catheterization which revealed a proximal LAD lesion 50-60% with medical therapy advised. The patient was seen and examined at the bedside on the day of discharge. She reported no further episodes of chest pain or SOB. She further denied fever, chills, nausea, vomiting, or diaphoresis. She was in good spirits and denied any additional complaints. The patient endorsed some right toe pain for which podiatry was consulted and recommended that the patient can follow up immediately after discharge on the same day in their clinic for further management. Physical Examination General: Non-toxic, in no acute distress, appears stated age, normal weight HEENT: NC/AT, anicteric sclerae, moist conjunctiva, no lid-lag, PERRLA Cardiovascular: S1/S2 wnl, no murmurs, rubs, or gallops Lungs: Clear to auscultation, normal respiratory effort, no accessory muscle use Abdominal: Soft, non-tender, non-distended, no guarding, rebound, or rigidity Skin: Warm, dry Extremities: No edema or contractures Psychiatric: Alert and oriented to person, place and time, appropriate affect Neuro: CN II-XII grossly intact, Strength 5/5 in all 4 extremities, Speech intact, Sensation to light touch grossly intact throughout Discharge diagnosis: Chest pain, ACS ruled out; thoracic aortic aneurysm; diabetes mellitus type 2; hypertension; occipital neuritis A total of 40 minutes of time were spent preparing this complex discharge summary. Patient Condition at Discharge: Stable Plan - Discharge Summary Discharge Rx Participant: Yes New Discharge Prescriptions: New Atorvastatin [Lipitor] 40 mg PO HS #30 tab Continue Cholecalciferol [Vitamin D3 (25 Mcg = 1000 Iu)] 3,000 unit PO DAILY@0700 Ondansetron [Zofran] 4 mg PO Q6H PRN PRN Reason: Nausea And Vomiting HYDROcodone/APAP 10-325MG [[place] 10-325] 1 - 2 tab PO Q4-6H PRN PRN Reason: Pain Metoprolol Succinate (ER) [Toprol XL] 50 mg PO HS Meclizine [Antivert] 25 mg PO QID PRN PRN Reason: Vertigo Magnesium Oxide 400 mg PO QAM Pantoprazole [Protonix] 40 mg PO BID Hydrocortisone [Cortef] 10 mg PO AC-LUNCH Hydrocortisone [Cortef] 15 mg PO AC-BRKFST Hydrocortisone [Cortef] 5 mg PO HS Aspirin 81 mg PO DAILY #0 Budesonide [Pulmicort Flexhaler] 1 puff INHALATION RT-BID PRN PRN Reason: Shortness Of Breath Glucagon Emergency Kit 1 mg IM ONCE PRN PRN Reason: Hypoglycemia Methocarbamol [Robaxin-750] 750 mg PO TID PRN PRN Reason: Muscle Spasm Promethazine 6.25MG/5Ml [Phenergan Syrup] 6.25 mg PO Q6H PRN PRN Reason: Cough Prochlorperazine [Compazine] 10 mg PO Q8H PRN PRN Reason: Nausea Acetaminophen Tab [Tylenol] 1,000 mg PO Q6HR PRN PRN Reason: Pain Or Fever > 100.5 Sertraline [Zoloft] 50 mg PO DAILY Ferrous Sulfate [Iron (65 MG Elemental)] 325 mg PO DAILY Vitamin B-Complex Drops 1 drop PO BID Folic Acid 0.4 mg PO DAILY Multivitamins, Thera Liquid [Theragran Liquid (formulary)] 30 ml PO DAILY L.acidoph,Paracasei, B.lactis [Probiotic] 2 cap PO BID Melatonin 5 mg PO HS PRN PRN Reason: Insomnia Cranberry 300mg 300 mg PO BID Potassium 99 mg PO DAILY Lisinopril [Zestril] 10 mg PO DAILY Insulin Glargine [Lantus] 34 unit SQ HS Insulin Aspart Protam & Aspart [NovoLOG MIX 70-30 Flexpen] 22 unit SQ TID Discontinued Atorvastatin Calcium [Lipitor] 20 mg PO HS No Action Thiamine [Vitamin B-1] 100 mg PO DAILY Discharge Medication List Cholecalciferol [Vitamin D3 (25 Mcg = 1000 Iu)] 3,000 unit PO DAILY@0700 12/01/14 [History] Ondansetron [Zofran] 4 mg PO Q6H PRN 10/12/15 [History] HYDROcodone/APAP 10-325MG [[place] 10-325] 1 - 2 tab PO Q4-6H PRN 07/06/17 [History] Metoprolol Succinate (ER) [Toprol XL] 50 mg PO HS 07/06/17 [History] Meclizine [Antivert] 25 mg PO QID PRN 11/26/17 [History] Magnesium Oxide 400 mg PO QAM 02/26/18 [History] Pantoprazole [Protonix] 40 mg PO BID 02/26/18 [History] Hydrocortisone [Cortef] 10 mg PO AC-LUNCH 05/18/18 [History] Hydrocortisone [Cortef] 15 mg PO AC-BRKFST 05/18/18 [History] Hydrocortisone [Cortef] 5 mg PO HS 06/26/18 [History] Aspirin 81 mg PO DAILY #0 07/02/18 [Rx] Budesonide [Pulmicort Flexhaler] 1 puff INHALATION RT-BID PRN 08/12/18 [History] Glucagon Emergency Kit 1 mg IM ONCE PRN 08/12/18 [History] Methocarbamol [Robaxin-750] 750 mg PO TID PRN 09/09/18 [History] Promethazine 6.25MG/5Ml [Phenergan Syrup] 6.25 mg PO Q6H PRN 09/11/18 [History] Acetaminophen Tab [Tylenol] 1,000 mg PO Q6HR PRN 10/08/18 [History] Cranberry 300mg 300 mg PO BID 10/08/18 [History] Ferrous Sulfate [Iron (65 MG Elemental)] 325 mg PO DAILY 10/08/18 [History] Folic Acid 0.4 mg PO DAILY 10/08/18 [History] L.acidoph,Paracasei, B.lactis [Probiotic] 2 cap PO BID 10/08/18 [History] Melatonin 5 mg PO HS PRN 10/08/18 [History] Multivitamins, Thera Liquid [Theragran Liquid (formulary)] 30 ml PO DAILY 10/08/18 [History] Potassium 99 mg PO DAILY 10/08/18 [History] Prochlorperazine [Compazine] 10 mg PO Q8H PRN 10/08/18 [History] Sertraline [Zoloft] 50 mg PO DAILY 10/08/18 [History] Thiamine [Vitamin B-1] 100 mg PO DAILY 10/08/18 [History] Vitamin B-Complex Drops 1 drop PO BID 10/08/18 [History] Lisinopril [Zestril] 10 mg PO DAILY 11/08/18 [History] Insulin Aspart Protam & Aspart [NovoLOG MIX 70-30 Flexpen] 22 unit SQ TID 11/09/18 [History] Insulin Glargine [Lantus] 34 unit SQ HS 11/09/18 [History] Atorvastatin [Lipitor] 40 mg PO HS #30 tab 11/16/18 [Rx] Follow up Appointment(s)/Referral(s): Warren Rosenberg MD [STAFF PHYSICIAN] - 11/23/18 4:00 pm (Monday) Allyson Guardado MD [Primary Care Provider] - 1-2 days (Office is closed Monday's. Please call to schedule appointment) Mayco Major MD [STAFF PHYSICIAN] - 2 Weeks (follow up in 2-4 weeks) Tyler Barakat DPM [STAFF PHYSICIAN] - 11/16/18 4:00 pm Patient Instructions/Handouts: *Surgery [facility] - After Heart Catheterization - Glove Stitcher Instructions, Chest Pain (DC) Discharge Disposition: HOME SELF-CARE
== END 2018-11-16 16:15 | disposition home or self-care (01) | DRG 287 ==
LOC: EC 18:45 → 1SOBS 21:40 → 3SCARD 11-10 19:07 → OBSVTOIN 11-11 09:58
PROVIDERS: ADMIT Internal Medicine; ATTEND Internal Medicine
PROC: B2151ZZ Fluoroscopy of Left Heart using Low Osmolar Contrast (ICD-10-PCS; principal; 2018-11-11)
PROC: 4A023N7 Measurement of Cardiac Sampling and Pressure, Left Heart, Percutaneous Approach (ICD-10-PCS; principal; 2018-11-11)
PROC: B2111ZZ Fluoroscopy of Multiple Coronary Arteries using Low Osmolar Contrast (ICD-10-PCS; principal; 2018-11-11)
DX: I25.10 Atherosclerotic heart disease of native coronary artery without angina pectoris (principal); E27.40 Unspecified adrenocortical insufficiency; I16.1 Hypertensive emergency; E11.9 Type 2 diabetes mellitus without complications; G47.33 Obstructive sleep apnea (adult) (pediatric); M54.81 Occipital neuralgia; I71.2 Thoracic aortic aneurysm, without rupture; I10 Essential (primary) hypertension; E78.5 Hyperlipidemia, unspecified; N28.9 Disorder of kidney and ureter, unspecified; M19.90 Unspecified osteoarthritis, unspecified site; K59.00 Constipation, unspecified; Z87.440 Personal history of urinary (tract) infections; Z86.718 Personal history of other venous thrombosis and embolism; Z99.89 Dependence on other enabling machines and devices; Z86.14 Personal history of Methicillin resistant Staphylococcus aureus infection; Z89.421 Acquired absence of other right toe(s); Z90.710 Acquired absence of both cervix and uterus; Z98.42 Cataract extraction status, left eye; Z98.41 Cataract extraction status, right eye; Z98.1 Arthrodesis status; Z79.899 Other long term (current) drug therapy; Z79.4 Long term (current) use of insulin; Z88.1 Allergy status to other antibiotic agents; Z88.5 Allergy status to narcotic agent; Z88.0 Allergy status to penicillin; Z88.2 Allergy status to sulfonamides; Z88.8 Allergy status to other drugs, medicaments and biological substances; Z87.442 Personal history of urinary calculi; Z86.19 Personal history of other infectious and parasitic diseases; Z90.49 Acquired absence of other specified parts of digestive tract; Z82.49 Family history of ischemic heart disease and other diseases of the circulatory system; Z83.3 Family history of diabetes mellitus; Z82.3 Family history of stroke; Z79.82 Long term (current) use of aspirin; Z80.49 Family history of malignant neoplasm of other genital organs
CPT/HCPCS: 36415; 70450; 71046; 71275; 74174; 80048; 80053; 80061; 82553; 83690; 83735; 83880; 84484; 85025; 85379; 85610; 85730; 93005; 93306; 93458; 96365; 96375; 96376; 99285

== ENCOUNTER 2018-11-18 20:19 | Observation (INO) | payer MEDICARE, BC ==
[2018-11-18] MEDS ORDERED: SODIUM CHLORIDE 0.9% 500 ML 500 ML IV STA (20:44)
[2018-11-18] MEDS ORDERED: ONDANSETRON 4 MG/2 ML VIAL IVP STA (20:44)
[2018-11-18 21:31] LABS: Basophils % (A) 0 %; Eosinophils # (A) 0.3 k/uL (0-0.7); Eosinophils % (A) 2 %; HCT 40.1 % (34.0-46.0); HGB 13.3 gm/dL (11.4-16.0); Lymphocytes # (A) 1.8 k/uL (1.0-4.8); Lymphocytes % (A) 14 %; MCH 27.4 pg (25.0-35.0); MCHC 33.2 g/dL (31.0-37.0); MCV 82.8 fL (80.0-100.0); Mean Platelet Volume 8.6; Monocytes # (A) 0.6 k/uL (0-1.0); Monocytes % (A) 5 %; Neutrophils # (A) 10.2 k/uL (1.3-7.7); Neutrophils % (A) 79 %; Platelet Count 199 k/uL (150-450); RBC 4.84 m/uL (3.80-5.40); RDW 14.7 % (11.5-15.5)
--- NOTE | 2018-11-18 21:37 | ED ---
General Adult HPI - General Chief complaint: Chest Pain Stated complaint: Nausea, Chest Pain Time Seen by Provider: 11/18/18 20:21 Source: EMS, RN notes reviewed, old records reviewed Mode of arrival: EMS Limitations: no limitations - History of Present Illness Initial comments: 68-year-old female patient with past history of type 2 diabetes, occipital veronica ralgia, presents to ED for chest pain. Patient recently underwent a cardiac catheterization on which demonstrated a 60% blockage of the left anterior descending vessel, no intervention at that time. Patient reports that she had 2 episodes of chest pain today both which lasted approximately 1 minute. Patient states that this occurred at approximately 8 AM and 7 PM. Both episodes lasted 1 minute. Patient had some associated shortness of breath the chest pain. Patient's pain x-rays chest pain or shortness breath. Patient is currently asymptomatic. Systemic: Pt denies fatigue, fever/chills, rash. Pt denies weakness, night sweats, weight loss. Neuro: Pt denies headache, visual disturbances, syncope or pre-syncope. HEENT: Pt denies ocular discharge or irritation, otalgia, rhinorrhea, pharyngitis or notable lymphadenopathy. Cardiopulmonary: Pt denies SOB, heart palpitations, dyspnea on exertion. Abdominal/GI: Pt denies abdominal pain, n/v/d. : Pt denies dysuria, burning w/ urination, frequency/urgency. Denies new onset urinary or bowel incontinence. MSK: Pt denies myalgia, loss of strength or function in extremities. Neuro: Pt denies new onset weakness, paresthesias. - Related Data Home Medications Medication Instructions Recorded Confirmed Cholecalciferol [Vitamin D3 (25 3,000 unit PO DAILY@0700 12/01/14 11/18/18 Mcg = 1000 Iu)] Ondansetron [Zofran] 4 mg PO Q6H PRN 10/12/15 11/18/18 HYDROcodone/APAP 10-325MG [Bowie 1 - 2 tab PO Q4-6H PRN 07/06/17 11/18/18 10-325] Metoprolol Succinate (ER) [Toprol 50 mg PO HS 07/06/17 11/18/18 XL] Meclizine [Antivert] 25 mg PO QID PRN 11/26/17 11/18/18 Magnesium Oxide 400 mg PO QAM 02/26/18 11/18/18 Pantoprazole [Protonix] 40 mg PO BID 02/26/18 11/18/18 Hydrocortisone [Cortef] 10 mg PO AC-LUNCH 05/18/18 11/18/18 Hydrocortisone [Cortef] 15 mg PO AC-BRKFST 05/18/18 11/18/18 Hydrocortisone [Cortef] 5 mg PO HS 06/26/18 11/18/18 Budesonide [Pulmicort Flexhaler] 1 puff INHALATION RT-BID PRN 08/12/18 11/18/18 Glucagon Emergency Kit 1 mg IM ONCE PRN 08/12/18 11/18/18 Methocarbamol [Robaxin-750] 750 mg PO TID PRN 09/09/18 11/18/18 Promethazine 6.25MG/5Ml [Phenergan 6.25 mg PO Q6H PRN 09/11/18 11/18/18 Syrup] Acetaminophen Tab [Tylenol] 1,000 mg PO Q6HR PRN 10/08/18 11/18/18 Cranberry 300mg 300 mg PO BID 10/08/18 11/18/18 Ferrous Sulfate [Iron (65 MG 325 mg PO DAILY 10/08/18 11/18/18 Elemental)] Folic Acid 0.4 mg PO DAILY 10/08/18 11/18/18 L.acidoph,Paracasei, B.lactis 2 cap PO BID 10/08/18 11/18/18 [Probiotic] Melatonin 5 mg PO HS PRN 10/08/18 11/18/18 Multivitamins, Thera Liquid 30 ml PO DAILY 10/08/18 11/18/18 [Theragran Liquid (formulary)] Potassium 99 mg PO DAILY 10/08/18 11/18/18 Prochlorperazine [Compazine] 10 mg PO Q8H PRN 10/08/18 11/18/18 Sertraline [Zoloft] 50 mg PO DAILY 10/08/18 11/18/18 Thiamine [Vitamin B-1] 100 mg PO DAILY 10/08/18 11/18/18 Vitamin B-Complex Drops 1 drop PO BID 10/08/18 11/18/18 Lisinopril [Zestril] 10 mg PO DAILY 11/08/18 11/18/18 Insulin Aspart Protam & Aspart 22 unit SQ TID 11/09/18 11/18/18 [NovoLOG MIX 70-30 Flexpen] Insulin Glargine [Lantus] 34 unit SQ HS 11/09/18 11/18/18 Previous Rx's Medication Instructions Recorded Aspirin 81 mg PO DAILY #0 07/02/18 Atorvastatin [Lipitor] 40 mg PO HS #30 tab 11/16/18 Allergies Allergy/AdvReac Type Severity Reaction Status Date / Time butorphanol tartrate Allergy BLISTERS Verified 11/18/18 20:52 [From Stadol] IN MOUTH ceftriaxone [From Rocephin] Allergy Unknown Verified 11/18/18 20:52 clarithromycin [From Biaxin] Allergy Rash/Hives Verified 11/18/18 20:52 codeine Allergy Rash/Hives Verified 11/18/18 20:52 ergotamine tartrate Allergy Unknown Verified 11/18/18 20:52 [From Cafergot] erythromycin base Allergy RASH, GI Verified 11/18/18 20:52 [From E-Mycin] SYMPTOMS ketorolac tromethamine Allergy Rash/Hives Verified 11/18/18 20:52 [From Toradol] liraglutide [From Victoza] Allergy Rash/Hives Verified 11/18/18 20:52 monosodium glutamate [MSG] Allergy Nausea & Verified 11/18/18 20:52 Vomiting morphine Allergy Rash/Hives Verified 11/18/18 20:52 nalbuphine HCl [From Nubain] Allergy Nausea & Verified 11/18/18 20:52 Vomiting Penicillins Allergy Rash/Hives Verified 11/18/18 20:52 pentazocine lactate Allergy SEVERE Verified 11/18/18 20:52 [From Talwin] BLISTERS IN MOUTH pregabalin [From Lyrica] Allergy Rash/Hives Verified 11/18/18 20:52 propoxyphene HCl Allergy Rash/Hives Verified 11/18/18 20:52 [From Darvon] Sulfa (Sulfonamide Allergy Rash/Hives Verified 11/18/18 20:52 Antibiotics) tramadol Allergy Unknown Verified 11/18/18 20:52 Review of Systems ROS Statement: Those systems with pertinent positive or pertinent negative responses have been documented in the HPI. ROS Other: All systems not noted in ROS Statement are negative. 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,DVT R calf in 1976, cardiac murmur.occipital neuraligia, constipation History of Any Multi-Drug Resistant Organisms: MRSA Date of last positivie culture/infection: 2010 MDRO Source:: 4th rt toe Past Surgical History: Appendectomy, Back Surgery, Bladder Surgery, Breast Surgery, Cholecystectomy, Heart Catheterization, Hysterectomy, Orthopedic Surgery, Tonsillectomy Additional Past Surgical History / Comment(s): Lumbar fusions, bladder suspension, occipital nerve blocks, 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 Past Anesthesia/Blood Transfusion Reactions: Motion Sickness Additional Past Anesthesia/Blood Transfusion Reaction / Comment(s): never recieved blood Past Psychological History: No Psychological Hx Reported Smoking Status: Never smoker Past Alcohol Use History: Occasional Past Drug Use History: None Reported - Past Family History Father Family Medical History: Coronary Artery Disease (CAD), CVA/TIA, Diabetes Mellitus, Myocardial Infarction (MS), Pneumonia Additional Family Medical History / Comment(s): ather at the age of 78yrs from MS and pneumonia. Mother Family Medical History: Cancer Additional Family Medical History / Comment(s): Mother had uterine cancer. She is 96yrs old. General Exam - General Exam Comments Initial Comments: Constitutional: NAD, AOX3, Pt has pleasant affect. HEENT: NC/AT, trachea midline, neck supple, no lymphadenopathy. Posterior pharynx non erythematous, without exudates. External ears appear normal, without discharge. Mucous membranes moist. Eyes PERRLA, EOM intact. There is no scleral icterus. No pallor noted. Cardiopulmonary: RRR, no murmurs, rubs or gallops, no JVD noted. Lungs CTAB in anterior and posterior hinds. No peripheral edema. Abdominal exam: Abdomen soft and non-distended. Abdomen non-tender to palpation in all 4 quadrants. Bowel sounds active in LLQ. No hepatosplenomegaly. No ecchymosis Neuro: CN II-XII grossly intact. No nuchal rigidity. No raccon eyes, no holder sign, no hemotympanum. No cervical spinal tenderness. MSK: No posterior calf tenderness bilaterally, homans sign negative bilaterally. Posterior tibialis and radial pulse +2 bilaterally. Sensation intact in upper and lower extremities. Full active ROM in upper and lower extremities, 5/5 stregnth. Limitations: no limitations Course Vital Signs 11/18/18 11/19/18 20:30 00:35 Temperature 98.3 F 98.3 F Pulse Rate 110 H 111 H Respiratory 20 19 Rate Blood Pressure 164/92 159/93 O2 Sat by Pulse 96 95 Oximetry Medical Decision Making - Medical Decision Making 68-year-old female patient with past history of type 2 diabetes, occipital neuralgia, presents to ED for chest pain. Patient recently underwent a cardiac catheterization on which demonstrated a 60% blockage of the left anterior descending vessel, no intervention at that time. Patient reports that she had 2 episodes of chest pain today both which lasted approximately 1 minute. Patient states that this occurred at approximately 8 AM and 7 PM. Both episodes lasted 1 minute. Patient had some associated shortness of breath the chest pain. Patient's pain x-rays chest pain or shortness breath. Patient is currently asymptomatic. Patient will signs displayed mild tachycardia 110 bpm. Otherwise within acceptable limits. Physical exam did not display any acute pathology. investigations revealed a leukocytosis of 13.0. Coagulation studies within normal limits. D-dimer mildly elevated at 1.53. CMP non-impressive. Troponin negative. BNP 677. Magnesium 1.3, supplemented in ED. UA displayed +2 ketones, 17 white blood cells, moderate leukocyte esterase. CTA displayed no PE, no acute process. Patient continues to remain pain-free. EKG displayed tachycardia, no concern for acute ischemia. Pt will be admitted for telemetry and serial enzymes. Case discussed in depth with Dr. Amado. - Lab Data Result diagrams: 11/18/18 20:56 06/02/19 20:56 Lab Results 11/18/18 11/18/18 11/18/18 Range/Units 20:56 20:56 20:56 WBC 13.0 H (3.8-10.6) k/uL RBC 4.84 (3.80-5.40) m/uL Hgb 13.3 (11.4-16.0) gm/dL Hct 40.1 (34.0-46.0) % MCV 82.8 (80.0-100.0) fL MCH 27.4 (25.0-35.0) pg MCHC 33.2 (31.0-37.0) g/dL RDW 14.7 (11.5-15.5) % Plt Count 199 (150-450) k/uL Neutrophils % 79 % Lymphocytes % 14 % Monocytes % 5 % Eosinophils % 2 % Basophils % 0 % Neutrophils # 10.2 H (1.3-7.7) k/uL Lymphocytes # 1.8 (1.0-4.8) k/uL Monocytes # 0.6 (0-1.0) k/uL Eosinophils # 0.3 (0-0.7) k/uL Basophils # 0.0 (0-0.2) k/uL PT 9.6 (9.0-12.0) sec INR 0.9 (<1.2) APTT 19.9 L (22.0-30.0) sec D-Dimer 1.53 H (<0.60) mg/L FEU Sodium 138 (137-145) mmol/L Potassium 4.0 (3.5-5.1) mmol/L Chloride 102 (98-107) mmol/L Carbon Dioxide 25 (22-30) mmol/L Anion Gap 11 mmol/L BUN 7 (7-17) mg/dL Creatinine 0.51 L (0.52-1.04) mg/dL Est GFR (CKD-EPI)AfAm >90 (>60 ml/min/1.73 sqM) Est GFR (CKD-EPI)NonAf >90 (>60 ml/min/1.73 sqM) Glucose 194 H (74-99) mg/dL Calcium 10.7 H (8.4-10.2) mg/dL Magnesium 1.3 L (1.6-2.3) mg/dL Total Bilirubin 0.6 (0.2-1.3) mg/dL AST 22 (14-36) U/L ALT 22 (9-52) U/L Alkaline Phosphatase 88 (38-126) U/L Troponin I (0.000-0.034) ng/mL NT-Pro-B Natriuret Pep pg/mL Total Protein 6.2 L (6.3-8.2) g/dL Albumin 3.9 (3.5-5.0) g/dL Urine Color Urine Appearance (Clear) Urine pH (5.0-8.0) Ur Specific [place] (1.001-1.035) Urine Protein (Negative) Urine Glucose (UA) (Negative) Urine Ketones (Negative) Urine Blood (Negative) Urine Nitrite (Negative) Urine Bilirubin (Negative) Urine Urobilinogen (<2.0) mg/dL Ur Leukocyte Esterase (Negative) Urine RBC (0-5) /hpf Urine WBC (0-5) /hpf Ur Squamous Epith Cells (0-4) /hpf Urine Bacteria (None) /hpf Hyaline Casts (0-2) /lpf Urine Mucus (None) /hpf 11/18/18 11/18/18 11/18/18 Range/Units 20:56 20:56 22:48 WBC (3.8-10.6) k/uL RBC (3.80-5.40) m/uL Hgb (11.4-16.0) gm/dL Hct (34.0-46.0) % MCV (80.0-100.0) fL MCH (25.0-35.0) pg MCHC (31.0-37.0) g/dL RDW (11.5-15.5) % Plt Count (150-450) k/uL Neutrophils % % Lymphocytes % % Monocytes % % Eosinophils % % Basophils % % Neutrophils # (1.3-7.7) k/uL Lymphocytes # (1.0-4.8) k/uL Monocytes # (0-1.0) k/uL Eosinophils # (0-0.7) k/uL Basophils # (0-0.2) k/uL PT (9.0-12.0) sec INR (<1.2) APTT (22.0-30.0) sec D-Dimer (<0.60) mg/L FEU Sodium (137-145) mmol/L Potassium (3.5-5.1) mmol/L Chloride (98-107) mmol/L Carbon Dioxide (22-30) mmol/L Anion Gap mmol/L BUN (7-17) mg/dL Creatinine (0.52-1.04) mg/dL Est GFR (CKD-EPI)AfAm (>60 ml/min/1.73 sqM) Est GFR (CKD-EPI)NonAf (>60 ml/min/1.73 sqM) Glucose (74-99) mg/dL Calcium (8.4-10.2) mg/dL Magnesium (1.6-2.3) mg/dL Total Bilirubin (0.2-1.3) mg/dL AST (14-36) U/L ALT (9-52) U/L Alkaline Phosphatase (38-126) U/L Troponin I <0.012 (0.000-0.034) ng/mL NT-Pro-B Natriuret Pep 677 pg/mL Total Protein (6.3-8.2) g/dL Albumin (3.5-5.0) g/dL Urine Color Yellow Urine Appearance Clear (Clear) Urine pH 6.0 (5.0-8.0) Ur Specific [place] 1.016 (1.001-1.035) Urine Protein Trace H (Negative) Urine Glucose (UA) Trace H (Negative) Urine Ketones 2+ H (Negative) Urine Blood Negative (Negative) Urine Nitrite Negative (Negative) Urine Bilirubin Negative (Negative) Urine Urobilinogen <2.0 (<2.0) mg/dL Ur Leukocyte Esterase Moderate H (Negative) Urine RBC 1 (0-5) /hpf Urine WBC 17 H (0-5) /hpf Ur Squamous Epith Cells 2 (0-4) /hpf Urine Bacteria Rare H (None) /hpf Hyaline Casts 3 H (0-2) /lpf Urine Mucus Rare H (None) /hpf Disposition Clinical Impression: Chest pain, UTI (urinary tract infection) Disposition: ADMITTED IP TO THIS [facility] Condition: Stable Referrals: Allyson Guardado MD [Primary Care Provider] - 1-2 days
[2018-11-18 21:57] LABS: INR 0.9 (<1.2); Prothrombin Time 9.6 sec (9.0-12.0)
[2018-11-18] MEDS ORDERED: HYDROcodone/APAP 7.5-325MG 1 EACH TAB PO ONE (21:57)
[2018-11-18 22:06] LABS: ALT 22 U/L (9-52); AST 22 U/L (14-36); African American GFR (CKD) >90 (>60 ml/min/1.73 sqM); Albumin 3.9 g/dL (3.5-5.0); Alkaline Phosphatase 88 U/L (38-126); Anion Gap 11 mmol/L; Blood Urea Nitrogen 7 mg/dL (7-17); Calcium 10.7 mg/dL (8.4-10.2); Carbon Dioxide 25 mmol/L (22-30); Chloride 102 mmol/L (98-107); Glucose 194 mg/dL (74-99); Magnesium 1.3 mg/dL (1.6-2.3); Sodium 138 mmol/L (137-145); Total Bilirubin 0.6 mg/dL (0.2-1.3); Total Protein 6.2 g/dL (6.3-8.2)
[2018-11-18 22:07] LABS: D-Dimer 1.53 mg/L FEU (<0.60); Partial Thromboplastin Time 19.9 sec (22.0-30.0)
[2018-11-18] MEDS ORDERED: HYDROmorphone 1 MG/ML 1 ML SYRINGE IVP STA (22:17)
[2018-11-18 23:04] LABS: Appearance,Urine Clear (Clear); Bacteria,Urine Rare /hpf; Bilirubin,Urine Negative (Negative); Blood,Urine Negative (Negative); Color,Urine Yellow; Glucose,Urine (UA) Trace (Negative); Hyaline Casts,Urine 3 /lpf (0-2); Ketones,Urine 2+ (Negative); Leukocyte Esterase,Urine Moderate (Negative); Mucus,Urine Rare /hpf; Nitrite,Urine Negative (Negative); Protein,Urine Trace (Negative); RBC,Urine 1 /hpf (0-5); Specific Gravity,Urine 1.016 (1.001-1.035); Squamous Epithelial Cell,Urine 2 /hpf (0-4); Urobilinogen,Urine <2.0 mg/dL (<2.0); WBC,Urine 17 /hpf (0-5)
[2018-11-18] MEDS ORDERED: MAGNESIUM OXIDE 400 MG TAB PO STA (23:21)
--- NOTE | 2018-11-18 23:38 | CT ---
EXAM: CT Angiography Chest With Intravenous Contrast CLINICAL HISTORY: ITS.REASON CT Reason: Pain TECHNIQUE: Axial computed tomographic angiography images of the chest with intravenous contrast using pulmonary embolism protocol. CTDI is 15 mGy and DLP is 444 mGy-cm. This CT exam was performed using one or more of the following dose reduction techniques: automated exposure control, adjustment of the mA and/or kV according to patient size, and/or use of iterative reconstruction technique. MIP reconstructed images were created and reviewed. COMPARISON: CT chest 11/10/18 FINDINGS: No pulmonary embolism. No aortic aneurysm or dissection. Cardiomegaly. Unchanged dependent atelectasis. No consolidation, pleural effusion, or pneumothorax. IMPRESSION: No pulmonary embolism. Findings are overall unchanged since the prior exam from 11/10/18.
[2018-11-19] MEDS ORDERED: NITROGLYCERIN SL TABS 0.4 MG TAB SUBLINGUAL PRN (00:37)
[2018-11-19] MEDS ORDERED: LEVOFLOXACIN 750MG-D5W PMX 750 MG in DEXTROSE/WATER 1 150ML.BAG IVPB SCH (01:00)
[2018-11-19] MEDS ORDERED: HYDROmorphone 1 MG/ML 1 ML SYRINGE IVP STA (01:51)
[2018-11-19] MEDS ORDERED: SODIUM CHLORIDE 0.9% 500 ML 500 ML IV STA (03:29)
[2018-11-19] MEDS ORDERED: PROMETHAZINE HCL 6.25 MG/5 ML CUP PO PRN (05:52)
[2018-11-19] MEDS ORDERED: ONDANSETRON 4 MG TAB PO PRN (06:00)
--- NOTE | 2018-11-19 06:13 | P.HPIM ---
History of Present Illness H&P Date: 11/19/18 Chief Complaint: chest pain I was initially notified about the patient around 1:30 in the morning when discussed the case with Dr. Hernandez, we found that she had a left heart cath done 4 days ago, upon reviewing results Dr. Burkett plan was to discharge the patient home. then I got notified at 4:30 in the morning by Dr. Hernandez about another patient, where he also told me that this patient was accidentally admitted to the observation unit , and hence I'm seeing. 68-year-old female with history of diabetes mellitus and hypertension Patient was recently hospitalized for chest pain on November 09, then had had left heart cath done which showed 50-60% blockage in the LAD cardiology recommended maximal medical therapy and to follow up as an outpatient. Patient comes back today to the hospital for recurrent attacks of chest pain not associated with activity, lasting long time patient did not specify results on its own with resting and breathing techniques, patient rates the pain as 10 out of 10 in severity,that happened at 8 in the morning and then later in the evening she describes as sharp throbbing pain left-sided radiates to the back associated with diaphoresis and nausea vomiting difficulty breathing and feeling very anxious. She denies any coughing fevers or chills she denies any abdominal pain changes in her bowel or urinary habits. She denies any dysuria hematuria frequency in urination or urgency. In the ED initial cardiac workup was unremarkable, patient had CT angiogram of the chest performed which showed no acute changes.report says no aortic aneurysm or dissection,no infiltrates, no effusion, no PE. Per Dr. Hernandez initial plan was to discharge the patient home, however somehow the patient ended up in the observation unit. patient at this point is demanding to see cardiology, she has an appointment scheduled for Monday but she claims that she will come to the ED every time she has a chest pain and demanded to be seen by cardiology to recall from her recent hospitalization she reported that she had a trip to [place] by car with frequent stops to rest and after coming back she was feeling weak and tired and having attacks of chest pain that was getting worse over the week for which she ended up in the hospital for evaluation , venous thromboembolism was ruled out, patient evaluated by cardiology and had left heart cath showing 50-60% blockage in LAD for which maximal medical therapy was recommended. Review of Systems Pertinent positives as noted in HPI. 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,DVT R calf in 1976, cardiac murmur.occipital neuraligia, constipation History of Any Multi-Drug Resistant Organisms: MRSA Date of last positivie culture/infection: 2010 MDRO Source:: 4th rt toe Past Surgical History: Appendectomy, Back Surgery, Bladder Surgery, Breast Surgery, Cholecystectomy, Heart Catheterization, Hysterectomy, Orthopedic Surgery, Tonsillectomy Additional Past Surgical History / Comment(s): Lumbar fusions, bladder suspension, occipital nerve blocks, 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 Past Anesthesia/Blood Transfusion Reactions: Motion Sickness Additional Past Anesthesia/Blood Transfusion Reaction / Comment(s): never recieved blood Smoking Status: Former smoker - Past Family History Father Family Medical History: Coronary Artery Disease (CAD), CVA/TIA, Diabetes Mellitus, Myocardial Infarction ([place]), Pneumonia Additional Family Medical History / Comment(s): ather at the age of 78yrs from [place] and pneumonia. Mother Family Medical History: Cancer Additional Family Medical History / Comment(s): Mother had uterine cancer. She is 96yrs old. Medications and Allergies Home Medications Medication Instructions Recorded Confirmed Type Cholecalciferol [Vitamin D3 (25 3,000 unit PO DAILY@0700 12/01/11/18/18 History Mcg = 1000 Iu)] Ondansetron [Zofran] 4 mg PO Q6H PRN 10/12/15 11/18/18 History HYDROcodone/APAP 10-325MG [Marilla 1 - 2 tab PO Q4-6H PRN 07/06/17 11/18/18 History 10-325] Metoprolol Succinate (ER) [Toprol 50 mg PO HS 07/06/17 11/18/18 History XL] Meclizine [Antivert] 25 mg PO QID PRN 11/26/17 11/18/18 History Magnesium Oxide 400 mg PO QAM 02/26/18 11/18/18 History Pantoprazole [Protonix] 40 mg PO BID 02/26/18 11/18/18 History Hydrocortisone [Cortef] 10 mg PO AC-LUNCH 05/18/18 11/18/18 History Hydrocortisone [Cortef] 15 mg PO AC-BRKFST 05/18/18 11/18/18 History Hydrocortisone [Cortef] 5 mg PO HS 06/26/18 11/18/18 History Aspirin 81 mg PO DAILY #0 07/02/18 11/18/18 Rx Budesonide [Pulmicort Flexhaler] 1 puff INHALATION RT-BID PRN 08/12/18 11/18/18 History Glucagon Emergency Kit 1 mg IM ONCE PRN 08/12/18 11/18/18 History Methocarbamol [Robaxin-750] 750 mg PO TID PRN 09/09/18 11/18/18 History Promethazine 6.25MG/5Ml [Phenergan 6.25 mg PO Q6H PRN 09/11/18 11/18/18 History Syrup] Acetaminophen Tab [Tylenol] 1,000 mg PO Q6HR PRN 10/08/18 11/18/18 History Cranberry 300mg 300 mg PO BID 10/08/18 11/18/18 History Ferrous Sulfate [Iron (65 MG 325 mg PO DAILY 10/08/18 11/18/18 History Elemental)] Folic Acid 0.4 mg PO DAILY 10/08/18 11/18/18 History L.acidoph,Paracasei, B.lactis 2 cap PO BID 10/08/18 11/18/18 History [Probiotic] Melatonin 5 mg PO HS PRN 10/08/18 11/18/18 History Multivitamins, Thera Liquid 30 ml PO DAILY 10/08/18 11/18/18 History [Theragran Liquid (formulary)] Potassium 99 mg PO DAILY 10/08/18 11/18/18 History Prochlorperazine [Compazine] 10 mg PO Q8H PRN 10/08/18 11/18/18 History Sertraline [Zoloft] 50 mg PO DAILY 10/08/18 11/18/18 History Thiamine [Vitamin B-1] 100 mg PO DAILY 10/08/18 11/18/18 History Vitamin B-Complex Drops 1 drop PO BID 10/08/18 11/18/18 History Lisinopril [Zestril] 10 mg PO DAILY 11/08/18 11/18/18 History Insulin Aspart Protam & Aspart 22 unit SQ TID 11/09/18 11/18/18 History [NovoLOG MIX 70-30 Flexpen] Insulin Glargine [Lantus] 34 unit SQ HS 11/09/18 11/18/18 History Atorvastatin [Lipitor] 40 mg PO HS #30 tab 11/16/18 11/18/18 Rx Allergies Allergy/AdvReac Type Severity Reaction Status Date / Time butorphanol tartrate Allergy BLISTERS Verified 11/18/18 20:52 [From Stadol] IN MOUTH ceftriaxone [From Rocephin] Allergy Unknown Verified 11/18/18 20:52 clarithromycin [From Biaxin] Allergy Rash/Hives Verified 11/18/18 20:52 codeine Allergy Rash/Hives Verified 11/18/18 20:52 ergotamine tartrate Allergy Unknown Verified 11/18/18 20:52 [From Cafergot] erythromycin base Allergy RASH, GI Verified 11/18/18 20:52 [From E-Mycin] SYMPTOMS ketorolac tromethamine Allergy Rash/Hives Verified 11/18/18 20:52 [From Toradol] liraglutide [From Victoza] Allergy Rash/Hives Verified 11/18/18 20:52 monosodium glutamate [MSG] Allergy Nausea & Verified 11/18/18 20:52 Vomiting morphine Allergy Rash/Hives Verified 11/18/18 20:52 nalbuphine HCl [From Nubain] Allergy Nausea & Verified 11/18/18 20:52 Vomiting Penicillins Allergy Rash/Hives Verified 11/18/18 20:52 pentazocine lactate Allergy SEVERE Verified 11/18/18 20:52 [From Talwin] BLISTERS IN MOUTH pregabalin [From Lyrica] Allergy Rash/Hives Verified 11/18/18 20:52 propoxyphene HCl Allergy Rash/Hives Verified 11/18/18 20:52 [From Darvon] Sulfa (Sulfonamide Allergy Rash/Hives Verified 11/18/18 20:52 Antibiotics) tramadol Allergy Unknown Verified 11/18/18 20:52 Physical Exam Vitals: Vital Signs Temp Pulse Pulse Resp BP BP Pulse Ox 11/19/18 04:00 98.0 F 118 H 16 123/80 97 11/19/18 03:56 110 H 18 121/85 93 L 11/19/18 01:35 98.3 F 117 H 18 144/82 93 L 11/19/18 00:35 98.3 F 111 H 19 159/93 95 11/18/18 20:30 98.3 F 110 H 20 164/92 96 Intake and Output 11/18/18 11/18/18 11/19/18 14:59 22:59 06:59 Other: # Voids 1 Weight 65.771 kg Constitutional: No acute distress, conversant, pleasant Eyes: Anicteric sclerae, moist conjunctiva, no lid-lag Pupils equal round reactive to light ENMT: NC/AT Oropharynx clear, no erythema,or exudates Neck: Supple, FROM, no masses, or JVD No carotid bruits No thyromegaly Lungs: Clear to auscultation Clear to percussion Normal respiratory effort, no accessory muscle use Cardiovascular: Heart regular in rate and rhythm, No murmurs, gallops, or rubs No peripheral edema Abdominal: Soft Nontender, no guarding, rebound or rigidity Abdomen moving with respiration Normoactive bowel sounds No hepatomegaly, No splenomegaly No palpable mass No abdominal wall hernia noted Skin: Normal temperature, tone, texture, turgor No induration No subcutaneous nodules No rash, lesions No ulcers Extremities: No digital cyanosis No clubbing Pedal pulses intact and symmetrical Radial pulses intact and symmetrical No calf tenderness Psychiatric: Alert and oriented to person, place and time Appropriate affect fair judgment Neuro Muscles Strength 5/5 in all 4 extremities Sensation to light touch grossly present throughout Cranial nerves II-XII grossly intact No focal sensory deficits Lymphatics: no palpable cervical or supraclavicular , or inguinal lymph nodes Results CBC & Chem 7: 11/18/18 20:56 11/18/18 20:56 Labs: Abnormal Lab Results - Last 24 Hours (Table) 11/18/18 11/18/18 11/18/18 Range/Units 20:56 20:56 20:56 WBC 13.0 H (3.8-10.6) k/uL Neutrophils # 10.2 H (1.3-7.7) k/uL APTT 19.9 L (22.0-30.0) sec D-Dimer 1.53 H (<0.60) mg/L FEU Creatinine 0.51 L (0.52-1.04) mg/dL Glucose 194 H (74-99) mg/dL Calcium 10.7 H (8.4-10.2) mg/dL Magnesium 1.3 L (1.6-2.3) mg/dL Total Protein 6.2 L (6.3-8.2) g/dL Urine Protein (Negative) Urine Glucose (UA) (Negative) Urine Ketones (Negative) Ur Leukocyte Esterase (Negative) Urine WBC (0-5) /hpf Urine Bacteria (None) /hpf Hyaline Casts (0-2) /lpf Urine Mucus (None) /hpf 11/18/18 Range/Units 22:48 WBC (3.8-10.6) k/uL Neutrophils # (1.3-7.7) k/uL APTT (22.0-30.0) sec D-Dimer (<0.60) mg/L FEU Creatinine (0.52-1.04) mg/dL Glucose (74-99) mg/dL Calcium (8.4-10.2) mg/dL Magnesium (1.6-2.3) mg/dL Total Protein (6.3-8.2) g/dL Urine Protein Trace H (Negative) Urine Glucose (UA) Trace H (Negative) Urine Ketones 2+ H (Negative) Ur Leukocyte Esterase Moderate H (Negative) Urine WBC 17 H (0-5) /hpf Urine Bacteria Rare H (None) /hpf Hyaline Casts 3 H (0-2) /lpf Urine Mucus Rare H (None) /hpf Thrombosis Risk Factor Assmnt - Choose All That Apply Each Risk Factor Represents 2 Points: Age 61-74 years Thrombosis Risk Factor Assessment Total Risk Factor Score: 2 Thrombosis Risk Factor Assessment Level: Low Risk Assessment and Plan Assessment: 68-year-old female with history of diabetes mellitus and hypertension admitted under observation with anticipated length of stay less than 48 hours for chest pain. Patient had a recent left heart cath done 4 days ago showing blockage of 50-60% and LAD with cardiology recommending maximal medical therapy. She is showing up today with concerns regarding chest pain and demands reassurance by cardiology, despite all the negative tests. Plan: atypical chest pain patient had left heart cath 4 days ago showing 50-60% blockage in LAD, cardiology recommended maximal medical therapy Today's cardiac workup negative with 2 negative troponins, EKG showed no acute changes CT angios the chest showed no evidence of aortic aneurysm or dissection, no PE, no pulmonary infiltrations Labs unremarkable Vital signs are stable Patient demanding to be seen by cardiology for reassurance Chronic conditions Diabetes mellitus Depression and anxiety Hypertension Adrenal insufficiency Continue home meds patient denies any urinary symptoms, patient was given levofloxacin for possible UTI, this will be discontinued Preformed a thorough record review from recent hospitalization as summarized in HPI Surrogate decision-maker: patient CODE STATUS:full code Discussed with: Patient, ER, RN Anticipated discharge: < [address]: home A total of 60minutes was spent on the care of this complex patient more than 50% of the time was spent in counseling and care coordination.
[2018-11-19] MEDS: ONDANSETRON 4 MG/2 ML VIAL IVP PRN (06:43)
[2018-11-19] MEDS ORDERED: MAGNESIUM SULFATE-D5W PMX 1 GM in DEXTROSE/WATER 1 100ML.BAG IVPB ONE (07:00)
[2018-11-19] MEDS ORDERED: BUDESONIDE 1 MG/2 ML NEBU INHALATION PRN (08:00)
[2018-11-19] MEDS ORDERED: PROCHLORPERAZINE 10 MG TAB PO PRN (08:00)
--- NOTE | 2018-11-19 08:47 | P.CRDCN ---
History of Present Illness Consult date: 11/19/18 Chief complaint: Chest pain History of present illness: This is a pleasant 68-year-old female patient with a past medical history significant for coronary artery disease, hypertension, dyslipidemia, and diabetes, presented to the hospital complaining of chest discomfort. The patient was discharged from the hospital this past Monday after she was admitted with uncontrolled hypertension as well as chest discomfort. Because she continues to have chest discomfort at that point, I did pursue with a heart catheterization. The heart catheterization revealed intermediate disease involving the proximal LAD with aneurysmal formation of the LAD as well as. We decided to treat the patient medically. Before that heart cath performed, the patient underwent a stress test and that showed no ischemia. This time she stated that she was home when she started experiencing discomfort in the chest, as a throbbing kind of discomfort, without any radiation, and without any associated symptoms. The EKG showed sinus rhythm without any ischemic ST or T- wave abnormalities but she was in sinus tachycardia in spite of taking Toprol-XL at 50 mg daily. The cardiac enzymes were checked and came in to be unremarkable as well. The chest x-ray did not show any acute abnormalities. The blood pressure definitely is better controlled compared to before. Currently the patient is chest pain-free. 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,DVT R calf in 1976, cardiac murmur.occipital neuraligia, constipation History of Any Multi-Drug Resistant Organisms: MRSA Date of last positivie culture/infection: 2010 MDRO Source:: 4th rt toe Past Surgical History: Appendectomy, Back Surgery, Bladder Surgery, Breast Chin rgery, Cholecystectomy, Heart Catheterization, Hysterectomy, Orthopedic Surgery, Tonsillectomy Additional Past Surgical History / Comment(s): Lumbar fusions, bladder suspensio n, occipital nerve blocks, 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 Past Anesthesia/Blood Transfusion Reactions: Motion Sickness Additional Past Anesthesia/Blood Transfusion Reaction / Comment(s): never recieved blood Smoking Status: Former smoker - Past Family History Father Family Medical History: Coronary Artery Disease (CAD), CVA/TIA, Diabetes Me llitus, Myocardial Infarction (GA), Pneumonia Additional Family Medical History / Comment(s): ather at the age of 78yrs from GA and pneumonia. Mother Family Medical History: Cancer Additional Family Medical History / Comment(s): Mother had uterine cancer. She is 96yrs old. Medications and Allergies Home Medications Medication Instructions Recorded Confirmed Type Cholecalciferol [Vitamin D3 (25 3,000 unit PO DAILY@0700 12/01/14 11/18/18 History Mcg = 1000 Iu)] Ondansetron [Zofran] 4 mg PO Q6H PRN 10/12/15 11/18/18 History HYDROcodone/APAP 10-325MG [[place] 1 - 2 tab PO Q4-6H PRN 07/06/17 11/18/18 History 10-325] Metoprolol Succinate (ER) [Toprol 50 mg PO HS 07/06/17 11/18/18 History XL] Meclizine [Antivert] 25 mg PO QID PRN 11/26/17 11/18/18 History Magnesium Oxide 400 mg PO QAM 02/26/18 11/18/18 History Pantoprazole [Protonix] 40 mg PO BID 02/26/18 11/18/18 History Hydrocortisone [Cortef] 10 mg PO AC-LUNCH 05/18/18 11/18/18 History Hydrocortisone [Cortef] 15 mg PO AC-BRKFST 05/18/18 11/18/18 History Hydrocortisone [Cortef] 5 mg PO HS 06/26/18 11/18/18 History Aspirin 81 mg PO DAILY #0 07/02/18 11/18/18 Rx Budesonide [Pulmicort Flexhaler] 1 puff INHALATION RT-BID PRN 08/12/18 11/18/18 History Glucagon Emergency Kit 1 mg IM ONCE PRN 08/12/18 11/18/18 History Methocarbamol [Robaxin-750] 750 mg PO TID PRN 09/09/18 11/18/18 History Promethazine 6.25MG/5Ml [Phenergan 6.25 mg PO Q6H PRN 09/11/18 11/18/18 History Syrup] Acetaminophen Tab [Tylenol] 1,000 mg PO Q6HR PRN 10/08/18 11/18/18 History Cranberry 300mg 300 mg PO BID 10/08/18 11/18/18 History Ferrous Sulfate [Iron (65 MG 325 mg PO DAILY 10/08/18 11/18/18 History Elemental)] Folic Acid 0.4 mg PO DAILY 10/08/18 11/18/18 History L.acidoph,Paracasei, B.lactis 2 cap PO BID 10/08/18 11/18/18 History [Probiotic] Melatonin 5 mg PO HS PRN 10/08/18 11/18/18 History Multivitamins, Thera Liquid 30 ml PO DAILY 10/08/18 11/18/18 History [Theragran Liquid (formulary)] Potassium 99 mg PO DAILY 10/08/18 11/18/18 History Prochlorperazine [Compazine] 10 mg PO Q8H PRN 10/08/18 11/18/18 History Sertraline [Zoloft] 50 mg PO DAILY 10/08/18 11/18/18 History Thiamine [Vitamin B-1] 100 mg PO DAILY 10/08/18 11/18/18 History Vitamin B-Complex Drops 1 drop PO BID 10/08/18 11/18/18 History Lisinopril [Zestril] 10 mg PO DAILY 11/08/18 11/18/18 History Insulin Aspart Protam & Aspart 22 unit SQ TID 11/09/18 11/18/18 History [NovoLOG MIX 70-30 Flexpen] Insulin Glargine [Lantus] 34 unit SQ HS 11/09/18 11/18/18 History Atorvastatin [Lipitor] 40 mg PO HS #30 tab 11/16/18 11/18/18 Rx Allergies Allergy/AdvReac Type Severity Reaction Status Date / Time butorphanol tartrate Allergy BLISTERS Verified 11/18/18 20:52 [From Stadol] IN MOUTH ceftriaxone [From Rocephin] Allergy Unknown Verified 11/18/18 20:52 clarithromycin [From Biaxin] Allergy Rash/Hives Verified 11/18/18 20:52 codeine Allergy Rash/Hives Verified 11/18/18 20:52 ergotamine tartrate Allergy Unknown Verified 11/18/18 20:52 [From Cafergot] erythromycin base Allergy RASH, GI Verified 11/18/18 20:52 [From E-Mycin] SYMPTOMS ketorolac tromethamine Allergy Rash/Hives Verified 11/18/18 20:52 [From Toradol] liraglutide [From Victoza] Allergy Rash/Hives Verified 11/18/18 20:52 monosodium glutamate [MSG] Allergy Nausea & Verified 11/18/18 20:52 Vomiting morphine Allergy Rash/Hives Verified 11/18/18 20:52 nalbuphine HCl [From Nubain] Allergy Nausea & Verified 11/18/18 20:52 Vomiting Penicillins Allergy Rash/Hives Verified 11/18/18 20:52 pentazocine lactate Allergy SEVERE Verified 11/18/18 20:52 [From Talwin] BLISTERS IN MOUTH pregabalin [From Lyrica] Allergy Rash/Hives Verified 11/18/18 20:52 propoxyphene HCl Allergy Rash/Hives Verified 11/18/18 20:52 [From Darvon] Sulfa (Sulfonamide Allergy Rash/Hives Verified 11/18/18 20:52 Antibiotics) tramadol Allergy Unknown Verified 11/18/18 20:52 Physical Exam Vitals: Vital Signs Temp Pulse Pulse Resp BP BP Pulse Ox 11/19/18 07:22 98.9 F 104 H 15 128/70 92 L 11/19/18 04:00 98.0 F 118 H 16 123/80 97 11/19/18 03:56 110 H 18 121/85 93 L 11/19/18 01:35 98.3 F 117 H 18 144/82 93 L 11/19/18 00:35 98.3 F 111 H 19 159/93 95 11/18/18 20:30 98.3 F 110 H 20 164/92 96 Intake and Output 11/18/18 11/19/18 11/19/18 22:59 06:59 14:59 Other: # Voids 1 Weight 65.771 kg - Constitutional General appearance: no acute distress - Respiratory Respiratory: bilateral: CTA - Cardiovascular Rhythm: regular Heart sounds: normal: S1, S2 Results 11/18/18 20:56 11/18/18 20:56 Cardiac Enzymes 11/18/18 11/18/18 11/19/18 Range/Units 20:56 20:56 01:27 AST 22 (14-36) U/L Troponin I <0.012 0.022 (0.000-0.034) ng/mL 11/19/18 Range/Units 03:42 AST (14-36) U/L Troponin I 0.018 (0.000-0.034) ng/mL Coagulation 11/18/18 Range/Units 20:56 PT 9.6 (9.0-12.0) sec APTT 19.9 L (22.0-30.0) sec CBC 11/18/18 Range/Units 20:56 WBC 13.0 H (3.8-10.6) k/uL RBC 4.84 (3.80-5.40) m/uL Hgb 13.3 (11.4-16.0) gm/dL Hct 40.1 (34.0-46.0) % Plt Count 199 (150-450) k/uL Comprehensive Metabolic Panel 11/18/18 Range/Units 20:56 Sodium 138 (137-145) mmol/L Potassium 4.0 (3.5-5.1) mmol/L Chloride 102 (98-107) mmol/L Carbon Dioxide 25 (22-30) mmol/L BUN 7 (7-17) mg/dL Creatinine 0.51 L (0.52-1.04) mg/dL Glucose 194 H (74-99) mg/dL Calcium 10.7 H (8.4-10.2) mg/dL AST 22 (14-36) U/L ALT 22 (9-52) U/L Alkaline Phosphatase 88 (38-126) U/L Total Protein 6.2 L (6.3-8.2) g/dL Albumin 3.9 (3.5-5.0) g/dL Current Medications Generic Name Dose Route Start Last Admin Trade Name Freq PRN Reason Stop Dose Admin Acetaminophen 1,000 mg 11/19/18 05:52 Tylenol Tab PO Q6HR PRN Pain or Fever > 100.5 Aspirin 81 mg 11/19/18 09:00 Aspirin PO DAILY [facility] Atorvastatin Calcium 40 mg 11/19/18 21:00 Lipitor PO HS [facility] Budesonide 1 mg 11/19/18 08:00 Pulmicort INHALATION RT-BID PRN Shortness Of Breath Hydrocortisone 10 mg 11/19/18 12:30 Cortef PO AC-LUNCH [facility] Hydrocortisone 5 mg 11/19/18 21:00 Cortef PO HS [facility] Hydrocortisone 15 mg 11/19/18 07:30 Cortef PO AC-BRKFST [facility] Insulin Aspart 22 unit 11/19/18 09:00 Novolog Mix 70-30 Vial SQ TID [facility] Insulin Aspart 0 unit 11/19/18 07:30 Novolog SQ ACHS [facility] Protocol Insulin Detemir 34 unit 11/19/18 21:00 Levemir SQ HS [facility] Lisinopril 10 mg 11/19/18 09:00 Zestril PO DAILY [facility] Magnesium Oxide 400 mg 11/19/18 09:00 Mag-Ox PO QAM [facility] Meclizine HCl 25 mg 11/19/18 09:00 Antivert PO QID PRN Vertigo Melatonin 5 mg 11/19/18 21:00 Melatonin PO HS PRN Insomnia Methocarbamol 750 mg 11/19/18 09:00 Robaxin PO TID PRN Muscle Spasm Metoprolol Succinate 50 mg 11/19/18 21:00 Toprol Xl PO HS [facility] Nitroglycerin 0.4 mg 11/19/18 00:37 Nitrostat SUBLINGUAL Q5M PRN Chest Pain Ondansetron HCl 4 mg 11/19/18 06:26 11/19/18 06:43 Zofran IVP 4 mg Q6HR PRN Administration Nausea And Vomiting Pantoprazole Sodium 40 mg 11/19/18 09:00 Protonix PO BID [facility] Prochlorperazine Maleate 10 mg 11/19/18 08:00 Compazine PO Q8H PRN Nausea Promethazine HCl 6.25 mg 11/19/18 05:52 Phenergan Syrup PO Q6H PRN Cough Sertraline HCl 50 mg 11/19/18 09:00 Zoloft PO DAILY [facility] Intake and Output 11/18/18 11/19/18 11/19/18 22:59 06:59 14:59 Other: # Voids 1 Weight 65.771 kg 11/18/18 20:56 11/18/18 20:56 Assessment and Plan Assessment: Assessment #1 atypical chest discomfort #2 sinus tachycardia #3 hypertension #4 dyslipidemia #5 multiple comorbid conditions including diabetes Plan #1 acute coronary event was ruled out #2 monitor the heart rate and if the patient continues to be in sinus tachycardia with increase the dose of Toprol-XL #3 continue monitoring the patient for additional 24 hours, if she continues to have a chest discomfort I would perform an FFR of the LAD with possible stenting if the FFR is ischemic #4 follow-up with the patient Thank you for allowing us participate in the care of the patient.
[2018-11-19] MEDS ORDERED: METHOCARBAMOL 750 MG TAB PO PRN (09:00)
[2018-11-19] MEDS ORDERED: NON-FORMULARY DRUG (Potassium [Potassium] 99 MG) PO SCH (09:00)
[2018-11-19] MEDS ORDERED: MECLIZINE 25 MG TAB PO PRN (09:00)
[2018-11-19] MEDS: INSULIN ASPART (NovoLOG) 100 UNIT/ML VIAL SQ SCH ×4 (10:12→21:34)
[2018-11-19] MEDS: INSULN ASP PRT/INSULIN ASPART 100 UNIT/ML 10 ML VIAL SQ SCH ×3 (10:13→21:34)
[2018-11-19] MEDS: ASPIRIN 81 MG PO SCH (10:17)
[2018-11-19] MEDS: MAGNESIUM OXIDE 400 MG TAB PO SCH (10:17)
[2018-11-19] MEDS: LISINOPRIL 10 MG TAB PO SCH (10:17)
[2018-11-19] MEDS: PANTOPRAZOLE 40 MG TABLET PO SCH ×2 (10:17→21:35)
[2018-11-19] MEDS: HYDROCORTISONE 10 MG TAB PO SCH ×2 (10:18→12:51)
[2018-11-19] MEDS: SERTRALINE 50 MG TAB PO SCH (10:22)
[2018-11-19] MEDS: HYDROcodone/APAP 10-325MG 1 EACH TAB PO PRN ×2 (11:41→17:12)
[2018-11-19 11:49] LABS: Glucose,Whole Blood 192 mg/dL (75-99)
[2018-11-19] MEDS: METOCLOPRAMIDE 5 MG TAB PO SCH ×3 (12:51→21:35)
--- NOTE | 2018-11-19 13:15 | P.PN ---
Progress Note - Text Progress Note Date: 11/19/18 Briefly the patient is a 68-year-old female with a past medical history of hypertension and dyslipidemia that presented with atypical chest pain patient had previously been here last week and had a stress test that was negative for reversible ischemia, Left heart cath performed at that time showed intermediate disease in the proximal LAD and aneurysmal formation of the LAD. Cardiac etiology at that time decided to treat the patient medically. On this presentation the patient's initial two troponins were negative but third set was elevated at 0.059. Cardiology was consulted and seen the patient she did have ongoing issues with her headaches started on Reglan and [place] for pain. We'll continue to follow her clinical course continue observation status for another 24 hours
[2018-11-19] MEDS: METOPROLOL SUCCINATE (ER) 50 MG TAB.ER.24H PO SCH ×2 (14:36→21:43)
[2018-11-19 16:55] LABS: Glucose,Whole Blood 235 mg/dL (75-99)
[2018-11-19 19:45] VITALS: RESP 18
[2018-11-19] MEDS ORDERED: HYDROCORTISONE 10 MG TAB PO SCH (21:00)
[2018-11-19] MEDS ORDERED: ATORVASTATIN 40 MG TAB PO SCH (21:00)
[2018-11-19] MEDS ORDERED: METOPROLOL SUCCINATE (ER) 50 MG TAB.ER.24H PO SCH (21:00)
[2018-11-19] MEDS ORDERED: MELATONIN 5 MG TABLET PO PRN (21:00)
[2018-11-19] MEDS ORDERED: INSULIN DETEMIR (LEVEMIR) 100 UNIT/ML SYR SQ SCH (21:00)
[2018-11-19 21:20] LABS: Glucose,Whole Blood 180 mg/dL (75-99)
[2018-11-19] MEDS: ACETAMINOPHEN TAB 500 MG TAB PO PRN (21:44)
[2018-11-20] MEDS: HYDROcodone/APAP 10-325MG 1 EACH TAB PO PRN ×2 (01:39→09:40)
[2018-11-20 03:32] LABS: Cholesterol 174 mg/dL (<200); HDL Cholesterol 40 mg/dL (40-60); LDL Cholesterol,Calculated 54 mg/dL (0-99); Triglycerides 400 mg/dL (<150)
[2018-11-20] MEDS: ACETAMINOPHEN TAB 500 MG TAB PO PRN (06:25)
[2018-11-20 06:54] LABS: Glucose,Whole Blood 76 mg/dL (75-99)
[2018-11-20] MEDS ORDERED: ASPIRIN 325 MG TAB PO SCH (09:00)
--- NOTE | 2018-11-20 09:27 | P.PN ---
Subjective This is a pleasant 68-year-old female past medical history significant for coronary artery disease, hypertension, dyslipidemia and diabetes mellitus. She follows in the office with Dr. Rosenberg. She is seen and examined resting comfortably laying flat in bed. She denies any further episodes of chest pain. She denies shortness of breath, palpitations, nausea, vomiting or diaphoresis. Herat rate is under control on home dose of Toprol, appears she had not received it night before last as ordered possibly being the cause for her palpitations. Blood pressure 144/76 heart rate 91 afebrile maintaining oxygen saturation on room air. Currently maintained on aspirin 81 mg daily, atorvastatin 40 mg daily, lisinopril 10 mg daily, Toprol 50 mg daily. GENERAL: Well-appearing, well-nourished and in no acute distress. NECK: Supple without JVD or thyromegaly. LUNGS: Breath sounds clear to auscultation bilaterally. Respiration equal and unlabored. No wheezes, rales or rhonchi. HEART: Regular rate and rhythm without murmurs, rubs or gallops. S1 and S2 heard. EXTREMITIES: Normal range of motion, no edema. No clubbing or cyanosis. Peripheral pulses intact. ASSESSMENT Chest pain, atypical. Mild troponin leak, secondary to tachycardia. No symptoms of angina. Sinus tachycardia Non-obstructive CAD Hypertension Dyslipidemia Diabetes mellitus PLAN Heart rate is better controlled. No further episodes of chest pain. Increase activity and ambulation in the halls. If chest pain free can be discharged home to see Dr. Rosenberg in the office on Monday for already scheduled appointment. Nurse Practitioner note has been reviewed, I agree with a documented findings and plan of care. Patient was seen and examined. Objective - Vital Signs Vital signs: Vital Signs Temp 98.0 F 11/20/18 07:20 Pulse 91 11/20/18 07:20 Resp 18 11/20/18 07:20 BP 144/76 11/20/18 07:20 Pulse Ox 95 11/20/18 07:20 Intake & Output 11/19/18 11/20/18 11/20/18 18:59 06:59 18:59 Other: Voiding Method Toilet Toilet # Voids 1 - Labs CBC & Chem 7: 11/18/18 20:56 11/18/18 20:56 Labs: Abnormal Lab Results - Last 24 Hours (Table) 11/18/18 11/19/18 11/19/18 Range/Units 20:56 10:58 11:48 POC Glucose (mg/dL) 192 H (75-99) mg/dL Troponin I 0.059 H* (0.000-0.034) ng/mL Triglycerides 400 H (<150) mg/dL 11/19/18 11/19/18 Range/Units 16:53 21:19 POC Glucose (mg/dL) 235 H 180 H (75-99) mg/dL Troponin I (0.000-0.034) ng/mL Triglycerides (<150) mg/dL Microbiology - Last 24 Hours (Table) 11/18/18 22:48 Urine Culture - Preliminary Urine,Voided
[2018-11-20] MEDS: METOCLOPRAMIDE 5 MG TAB PO SCH ×2 (09:39→12:52)
[2018-11-20] MEDS: HYDROCORTISONE 10 MG TAB PO SCH ×2 (09:39→12:52)
[2018-11-20] MEDS: SERTRALINE 50 MG TAB PO SCH (09:40)
[2018-11-20] MEDS: ASPIRIN 81 MG PO SCH (09:40)
[2018-11-20] MEDS: MAGNESIUM OXIDE 400 MG TAB PO SCH (09:40)
[2018-11-20] MEDS: PANTOPRAZOLE 40 MG TABLET PO SCH (09:40)
[2018-11-20] MEDS: INSULIN ASPART (NovoLOG) 100 UNIT/ML VIAL SQ SCH ×2 (09:40→12:10)
[2018-11-20] MEDS: LISINOPRIL 10 MG TAB PO SCH (09:40)
[2018-11-20] MEDS: INSULN ASP PRT/INSULIN ASPART 100 UNIT/ML 10 ML VIAL SQ SCH (09:43)
[2018-11-20 11:44] LABS: Glucose,Whole Blood 98 mg/dL (75-99)
[2018-11-20 11:53] VITALS: BP 122/78; PULSE 81; TEMP 98.2
[2018-11-20] MEDS: ONDANSETRON 4 MG/2 ML VIAL IVP PRN (12:52)
--- NOTE | 2018-11-20 14:10 | P.DS ---
Providers Date of admission: 11/19/18 01:22 Expected date of discharge: 11/20/18 Attending physician: Evaristo Solis MD Consults: 11/19/18 00:37 Consult Physician Urgent Consulting Provider: Muna Downs Consult Reason/Comments: chest pain Do you want consulting provider notified?: Yes Primary care physician: Allyson Guardado MD - Discharge Diagnosis(es) (1) Chest pain Current Visit: Yes Status: Acute (2) CAD (coronary artery disease) Current Visit: Yes Status: Acute (3) Elevated troponin Current Visit: Yes Status: Acute (4) Headache Current Visit: No Status: Acute (5) Occipital neuritis Current Visit: No Status: Acute (6) DM type 2 (diabetes mellitus, type 2) Current Visit: No Status: Chronic Hospital Course: Patient is a 68-year-old female with a past with history of CAD hypertension dyslipidemia type 2 diabetes that was admitted for chest pain with deep to rule out ACS, the patient was recently admitted within the last 7 days with uncontrolled hypertension and chest pain at that time with workup including a left heart catheterization that revealed intermediate disease involving the proximal LAD and aneurysmal formation of the LAD. The patient was determined that time to have nonobstructive coronary disease with recommendations to treat medical medically, the patient had a stress test that showed no ischemia. On this admission her EKG showed sinus mechanism without any suggestion of any acute ischemia, she was noted to be in sinus tachycardia which was thought to precipitate her elevation of her troponin. The plan was that if the patient had ongoing chest pain that cardiology would perform a FFR of the LAD with possible stenting if ischemic., However the patient symptoms resolved without any further issues and she was subsequently discharged home in stable condition and told to follow-up with her primary care physician. This discharge process took approximately 30 minutes Focused exam Cardiovascular: Regular rate and rhythm, no murmurs, rubs or gallops, no JVD Patient Condition at Discharge: Fair Plan - Discharge Summary New Discharge Prescriptions: Continue Cholecalciferol [Vitamin D3 (25 Mcg = 1000 Iu)] 3,000 unit PO DAILY@0700 Ondansetron [Zofran] 4 mg PO Q6H PRN PRN Reason: Nausea And Vomiting HYDROcodone/APAP 10-325MG [[place] 10-325] 1 - 2 tab PO Q4-6H PRN PRN Reason: Pain Metoprolol Succinate (ER) [Toprol XL] 50 mg PO HS Meclizine [Antivert] 25 mg PO QID PRN PRN Reason: Vertigo Magnesium Oxide 400 mg PO QAM Pantoprazole [Protonix] 40 mg PO BID Hydrocortisone [Cortef] 10 mg PO AC-LUNCH Hydrocortisone [Cortef] 15 mg PO AC-BRKFST Hydrocortisone [Cortef] 5 mg PO HS Aspirin 81 mg PO DAILY #0 Budesonide [Pulmicort Flexhaler] 1 puff INHALATION RT-BID PRN PRN Reason: Shortness Of Breath Glucagon Emergency Kit 1 mg IM ONCE PRN PRN Reason: Hypoglycemia Methocarbamol [Robaxin-750] 750 mg PO TID PRN PRN Reason: Muscle Spasm Promethazine 6.25MG/5Ml [Phenergan Syrup] 6.25 mg PO Q6H PRN PRN Reason: Cough Prochlorperazine [Compazine] 10 mg PO Q8H PRN PRN Reason: Nausea Acetaminophen Tab [Tylenol] 1,000 mg PO Q6HR PRN PRN Reason: Pain Or Fever > 100.5 Ferrous Sulfate [Iron (65 MG Elemental)] 325 mg PO DAILY Vitamin B-Complex Drops 1 drop PO BID Thiamine [Vitamin B-1] 100 mg PO DAILY Folic Acid 0.4 mg PO DAILY Multivitamins, Thera Liquid [Theragran Liquid (formulary)] 30 ml PO DAILY L.acidoph,Paracasei, B.lactis [Probiotic] 2 cap PO BID Melatonin 5 mg PO HS PRN PRN Reason: Insomnia Cranberry 300mg 300 mg PO BID Potassium 99 mg PO DAILY Lisinopril [Zestril] 10 mg PO DAILY Insulin Glargine [Lantus] 34 unit SQ HS Insulin Aspart Protam & Aspart [NovoLOG MIX 70-30 Flexpen] 22 unit SQ TID Atorvastatin [Lipitor] 40 mg PO HS #30 tab Discontinued Sertraline [Zoloft] 50 mg PO DAILY Discharge Medication List Cholecalciferol [Vitamin D3 (25 Mcg = 1000 Iu)] 3,000 unit PO DAILY@0700 12/01/14 [History] Ondansetron [Zofran] 4 mg PO Q6H PRN 10/12/15 [History] HYDROcodone/APAP 10-325MG [[place] 10-325] 1 - 2 tab PO Q4-6H PRN 07/06/17 [History] Metoprolol Succinate (ER) [Toprol XL] 50 mg PO HS 07/06/17 [History] Meclizine [Antivert] 25 mg PO QID PRN 11/26/17 [History] Magnesium Oxide 400 mg PO QAM 02/26/18 [History] Pantoprazole [Protonix] 40 mg PO BID 02/26/18 [History] Hydrocortisone [Cortef] 10 mg PO AC-LUNCH 05/18/18 [History] Hydrocortisone [Cortef] 15 mg PO AC-BRKFST 05/18/18 [History] Hydrocortisone [Cortef] 5 mg PO HS 06/26/18 [History] Aspirin 81 mg PO DAILY #0 07/02/18 [Rx] Budesonide [Pulmicort Flexhaler] 1 puff INHALATION RT-BID PRN 08/12/18 [History] Glucagon Emergency Kit 1 mg IM ONCE PRN 08/12/18 [History] Methocarbamol [Robaxin-750] 750 mg PO TID PRN 09/09/18 [History] Promethazine 6.25MG/5Ml [Phenergan Syrup] 6.25 mg PO Q6H PRN 09/11/18 [History] Acetaminophen Tab [Tylenol] 1,000 mg PO Q6HR PRN 10/08/18 [History] Cranberry 300mg 300 mg PO BID 10/08/18 [History] Ferrous Sulfate [Iron (65 MG Elemental)] 325 mg PO DAILY 10/08/18 [History] Folic Acid 0.4 mg PO DAILY 10/08/18 [History] L.acidoph,Paracasei, B.lactis [Probiotic] 2 cap PO BID 10/08/18 [History] Melatonin 5 mg PO HS PRN 10/08/18 [History] Multivitamins, Thera Liquid [Theragran Liquid (formulary)] 30 ml PO DAILY 10/08/18 [History] Potassium 99 mg PO DAILY 10/08/18 [History] Prochlorperazine [Compazine] 10 mg PO Q8H PRN 10/08/18 [History] Thiamine [Vitamin B-1] 100 mg PO DAILY 10/08/18 [History] Vitamin B-Complex Drops 1 drop PO BID 10/08/18 [History] Lisinopril [Zestril] 10 mg PO DAILY 11/08/18 [History] Insulin Aspart Protam & Aspart [NovoLOG MIX 70-30 Flexpen] 22 unit SQ TID 11/09/18 [History] Insulin Glargine [Lantus] 34 unit SQ HS 11/09/18 [History] Atorvastatin [Lipitor] 40 mg PO HS #30 tab 11/16/18 [Rx] Follow up Appointment(s)/Referral(s): Warren Rosenberg MD [STAFF PHYSICIAN] - 1 Week (Pt already has an appointment scheduled for Monday. ) Allyson Guardado MD [Primary Care Provider] - 1-2 days Discharge Disposition: HOME SELF-CARE
== END 2018-11-20 17:10 | disposition home or self-care (01) ==
LOC: EC 20:19 → 1SOBS 11-19 01:22
PROVIDERS: ADMIT Internal Medicine; ATTEND Internal Medicine
DX: R07.89 Other chest pain (principal); R00.0 Tachycardia, unspecified; E11.9 Type 2 diabetes mellitus without complications; M54.81 Occipital neuralgia; I25.10 Atherosclerotic heart disease of native coronary artery without angina pectoris; M79.7 Fibromyalgia; J44.9 Chronic obstructive pulmonary disease, unspecified; I10 Essential (primary) hypertension; G47.33 Obstructive sleep apnea (adult) (pediatric); E78.5 Hyperlipidemia, unspecified; M19.90 Unspecified osteoarthritis, unspecified site; K59.00 Constipation, unspecified; E27.40 Unspecified adrenocortical insufficiency; D72.829 Elevated white blood cell count, unspecified; R79.89 Other specified abnormal findings of blood chemistry; R61 Generalized hyperhidrosis; R11.2 Nausea with vomiting, unspecified; F41.9 Anxiety disorder, unspecified; Z88.8 Allergy status to other drugs, medicaments and biological substances; F32.9 Major depressive disorder, single episode, unspecified; R77.8 Other specified abnormalities of plasma proteins; R00.2 Palpitations; Z79.4 Long term (current) use of insulin; Z79.82 Long term (current) use of aspirin; Z79.891 Long term (current) use of opiate analgesic; Z79.51 Long term (current) use of inhaled steroids; Z79.52 Long term (current) use of systemic steroids; Z79.899 Other long term (current) drug therapy; Z88.0 Allergy status to penicillin; Z88.1 Allergy status to other antibiotic agents; Z88.2 Allergy status to sulfonamides; Z88.5 Allergy status to narcotic agent; Z86.718 Personal history of other venous thrombosis and embolism; Z87.891 Personal history of nicotine dependence; Z99.89 Dependence on other enabling machines and devices; Z87.442 Personal history of urinary calculi; Z87.01 Personal history of pneumonia (recurrent); Z87.81 Personal history of (healed) traumatic fracture; Z86.14 Personal history of Methicillin resistant Staphylococcus aureus infection; Z87.440 Personal history of urinary (tract) infections; Z86.19 Personal history of other infectious and parasitic diseases; Z89.429 Acquired absence of other toe(s), unspecified side; Z90.49 Acquired absence of other specified parts of digestive tract; Z90.710 Acquired absence of both cervix and uterus; Z98.1 Arthrodesis status; Z98.42 Cataract extraction status, left eye; Z98.41 Cataract extraction status, right eye; Z83.3 Family history of diabetes mellitus; Z82.49 Family history of ischemic heart disease and other diseases of the circulatory system; Z83.6 Family history of other diseases of the respiratory system; Z80.49 Family history of malignant neoplasm of other genital organs; Z82.3 Family history of stroke
CPT/HCPCS: 96367; 96376 ×3; 96361 ×2; 96365; 96366; 96375; 99285; 36415; 94760; 93005; 85379; 83880; 80061; 80053; 83735; 84484 ×2; 85025; 85610; 85730; 81001; 87086; 71275; G0378 ×2; J2405 ×3; J1170 ×2; J1956; J3475; Q9967

== ENCOUNTER → 2018-11-28 | Outpatient (CLI) | payer MEDICARE, BC ==
--- NOTE | 2018-11-28 17:09 | NM ---
EXAMINATION TYPE: NM parathyroid w/spect DATE OF EXAM: 11/28/2018 COMPARISON: Previous exam 05/15/2017 HISTORY: Hyperparathyroidism TECHNIQUE: Following administration of 25.4 mCi Tc99m Sestamibi. Anterior projection images of the neck and ches t were obtained 10 minutes and 3 hours post injection. SPECT images of the neck and chest were obtai shankar and reconstructed in three axes. FINDINGS: Thyroid tracer washout: Delayed images demonstrate near-complete tracer washout from the thyroid. Parathyroid uptake: None. The 3-hour delayed images do not demonstrate any focal abnormal persistent uptake in the region of the parathyroid glands to suggest parathyroid adenoma. Normal uptake: There is physiological tracer uptake in the myocardium, salivary glands, and thyroid g land. IMPRESSION: Normal parathyroid imaging study. No evidence for mediastinal uptake to suggest mediastinal parathyro id adenoma
== END | disposition home or self-care (01) ==
LOC: RADNMMAIN 11:07
PROVIDERS: ATTEND Internal Medicine Endocrinology, Diabetes & Metabolism
DX: E21.0 Primary hyperparathyroidism (principal)
CPT/HCPCS: 78071; A9500

== ENCOUNTER 2018-12-04 08:52 | Day surgery (SDC) | payer MEDICARE, BC ==
[~2018-12-04 08:52] MED LIST changes: -IPRATROPIUM-ALBUTEROL 3 ML NEB ONE; +LACTATED RINGERS 1,000 ML IV SCH
[2018-12-04 09:15] VITALS: TEMP 97.5
[2018-12-04 09:35] LABS: Glucose,Whole Blood 127 mg/dL (75-99)
[2018-12-04] MEDS ORDERED: LIDOCAINE 1% 20 ML VIAL (10MG/ML) FOR IV START INTRADERMA ONE (09:46)
[2018-12-04 10:10] VITALS: RESP 18
[2018-12-04] MEDS ORDERED: IV FLUID CONTINUATION 1,000 ML IV ONE (10:34)
[2018-12-04 10:36] VITALS: BP 167/78; PULSE 68
--- NOTE | 2018-12-04 10:54 | P.PCN ---
Date of Procedure: 12/04/18 Procedure(s) Performed: Preoperative diagnoses= 1- Greater occipital neuralgia Postoperative diagnoses= same as preoperative diagnosis. Procedure= Bilateral Greater occipital nerve block. Anesthesia= moderate sedation with Versed 1 mg and fentanyl 50 micrograms and local infiltration with lidocaine 1% 4 ml Estimated blood loss=minimal. Procedure indication= the patient had a history of severe chronic neck pain ,and headache, diagnosed with occipital neuralgia ,exam was positive for severe tenderness over the occipital nerve bilaterally, she will be a good candidate occipital nerve block, patient failed conservative management Procedure description= the patient was seen and identified in the preoperative holding area, risks and benefits and alternative of the procedure and possible complications ,discussed with the patient, and she agreed with the preceding, patient signed the consent, an IV was started, and vital signs were monitored and were stable throughout the procedure, patient was placed in the sitting position or table and the neck area was prepped and draped with a sterile fashion, vital signs were closely monitored during the procedure, 25-gauge needle advanced 1 inch lateral to the occipital protuberance on the right side, at the location of the right occipital nerve , then after negative aspiration for heme and CSF and there was no paresthesia during the injection, 6 ml of Robivacaine 0.5% and 20 mg of Depo-Medrol injected after negative aspiration, the needle removed, and the entire same procedure was repeated for the left Greater occipital nerve. Patient tolerated the procedure well without any complication, The patient returned to supine position after the back was cleaned and a Band- Aid applied, the patient transported to recovery room in stable condition and he was monitored for 30 minutes before he was discharged home and then patient was reexamined before going home and patient was discharged in stable condition and patient will follow up with the pain clinic in a few weeks .
== END 2018-12-04 10:40 | disposition home or self-care (01) ==
LOC: ORPAIN 08:52
PROVIDERS: ATTEND Specialist
DX: M54.81 Occipital neuralgia (principal); I10 Essential (primary) hypertension; E11.9 Type 2 diabetes mellitus without complications; J44.9 Chronic obstructive pulmonary disease, unspecified; E27.40 Unspecified adrenocortical insufficiency; M79.7 Fibromyalgia
CPT/HCPCS: 64405; J2250; J1030; J3010

== ENCOUNTER 2018-12-08 11:27 | Inpatient (IN) | payer MEDICARE, BC ==
[2018-12-08] MEDS ORDERED: ACETAMINOPHEN TAB 500 MG TAB PO STA (13:05)
[2018-12-08] MEDS ORDERED: diphenhydrAMINE 50 MG/ML 1 ML VIAL IVP STA (13:05)
[2018-12-08] MEDS ORDERED: DEXAMETHASONE SOD PHOSPHATE 10 MG/ML 1 ML VIAL IV STA (13:05)
[2018-12-08] MEDS ORDERED: METOCLOPRAMIDE 5 MG/ML 2 ML VIAL IVP STA (13:05)
[2018-12-08] MEDS ORDERED: SODIUM CHLORIDE 0.9% 1,000 ML IV ONE (13:41)
--- NOTE | 2018-12-08 13:46 | ED ---
General Adult HPI - General Chief complaint: Headache Stated complaint: Weakness Time Seen by Provider: 12/08/18 12:53 Source: patient Mode of arrival: EMS Limitations: no limitations - History of Present Illness Initial comments: Patient is a 68-year-old female who presents with a chief complaint of headache, nausea and vomiting. Is been going on since . Patient states that she has occipital neuralgia and received injections on Monday. She'll identify any other possible inciting incident. There are no aggravating or alleviating factors. Timing is constant. - Related Data Home Medications Medication Instructions Recorded Confirmed Cholecalciferol [Vitamin D3 (25 3,000 unit PO DAILY@0700 12/01/14 12/08/18 Mcg = 1000 Iu)] Ondansetron [Zofran] 4 mg PO Q6H PRN 10/12/15 12/08/18 HYDROcodone/APAP 10-325MG [[place] 1 - 2 tab PO Q4-6H PRN 07/06/17 12/08/18 10-325] Metoprolol Succinate (ER) [Toprol 50 mg PO 07/06/17 12/08/18 XL] Meclizine [Antivert] 25 mg PO QID PRN 11/26/17 12/08/18 Magnesium Oxide 400 mg PO QAM 02/26/18 12/08/18 Pantoprazole [Protonix] 40 mg PO BID 02/26/18 12/08/18 Hydrocortisone [Cortef] 10 mg PO AC-LUNCH 05/18/18 12/08/18 Hydrocortisone [Cortef] 15 mg PO AC-BRKFST 05/18/18 12/08/18 Hydrocortisone [Cortef] 5 mg PO HS 06/26/18 12/08/18 Budesonide [Pulmicort Flexhaler] 1 puff INHALATION RT-BID PRN 08/12/18 12/08/18 Glucagon Emergency Kit 1 mg IM ONCE PRN 08/12/18 12/08/18 Methocarbamol [Robaxin-750] 750 mg PO TID PRN 09/09/18 12/08/18 Cranberry 300mg 300 mg PO BID 10/08/18 12/08/18 Ferrous Sulfate [Iron (65 MG 325 mg PO DAILY 10/08/18 12/08/18 Elemental)] Folic Acid 0.4 mg PO DAILY 10/08/18 12/08/18 L.acidoph,Paracasei, B.lactis 2 cap PO BID 10/08/18 12/08/18 [Probiotic] Melatonin 5 mg PO HS PRN 10/08/18 12/08/18 Multivitamins, Thera Liquid 30 ml PO DAILY 10/08/18 12/08/18 [Theragran Liquid (formulary)] Potassium 99 mg PO DAILY 10/08/18 12/08/18 Thiamine [Vitamin B-1] 100 mg PO DAILY 10/08/18 12/08/18 Vitamin B-Complex Drops 1 drop PO BID 10/08/18 12/08/18 Lisinopril [Zestril] 10 mg PO QAM 11/08/18 12/08/18 Insulin Glargine [Lantus] 32 unit SQ HS 11/09/18 12/08/18 Sertraline [Zoloft] 100 mg PO QAM 11/30/18 12/08/18 Insulin Aspart [NovoLOG Flexpen] 21 units SQ AC-BID 12/08/18 12/08/18 Insulin Aspart [NovoLOG Flexpen] See Protocol SQ AC-TID 12/08/18 12/08/18 Insulin Aspart [Novolog Flexpen] 20 unit SQ AC-BRKFST 12/08/18 12/08/18 Prochlorperazine [Compazine] 10 mg PO Q8H PRN 12/08/18 12/08/18 Promethazine HCl [Phenergan Syrup] 6.25 mg PO Q6H PRN 12/08/18 12/08/18 Previous Rx's Medication Instructions Recorded Aspirin 81 mg PO DAILY #0 07/02/18 Atorvastatin [Lipitor] 40 mg PO HS #30 tab 11/16/18 Allergies Allergy/AdvReac Type Severity Reaction Status Date / Time butorphanol tartrate Allergy BLISTERS Verified 12/08/18 12:24 [From Stadol] IN MOUTH ceftriaxone [From Rocephin] Allergy Unknown Verified 12/08/18 12:24 clarithromycin [From Biaxin] Allergy Rash/Hives Verified 12/08/18 12:24 codeine Allergy Rash/Hives Verified 12/08/18 12:24 ergotamine tartrate Allergy Unknown Verified 12/08/18 12:24 [From Cafergot] erythromycin base Allergy RASH, GI Verified 12/08/18 12:24 [From E-Mycin] SYMPTOMS ketorolac tromethamine Allergy Rash/Hives Verified 12/08/18 12:24 [From Toradol] liraglutide [From Victoza] Allergy Rash/Hives Verified 12/08/18 12:24 morphine Allergy Rash/Hives Verified 12/08/18 12:24 Penicillins Allergy Rash/Hives Verified 12/08/18 12:24 pentazocine lactate Allergy SEVERE Verified 12/08/18 12:24 [From Talwin] BLISTERS IN MOUTH pregabalin [From Lyrica] Allergy Rash/Hives Verified 12/08/18 12:24 propoxyphene HCl Allergy Rash/Hives Verified 12/08/18 12:24 [From Darvon] Sulfa (Sulfonamide Allergy Rash/Hives Verified 12/08/18 12:24 Antibiotics) tramadol Allergy Unknown Verified 12/08/18 12:24 monosodium glutamate [MSG] AdvReac Nausea & Verified 12/08/18 12:24 Vomiting nalbuphine HCl [From Nubain] AdvReac Nausea & Verified 12/08/18 12:24 Vomiting Review of Systems ROS Statement: Those systems with pertinent positive or pertinent negative responses have been documented in the HPI. ROS Other: All systems not noted in ROS Statement are negative. Constitutional: Reports: weakness Gastrointestinal: Reports: nausea, vomiting Neurological: Reports: headache 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,DVT R calf in 1976, cardiac murmur.occipital neuraligia, constipation History of Any Multi-Drug Resistant Organisms: MRSA Date of last positivie culture/infection: 2010 MDRO Source:: 4th rt toe Past Surgical History: Appendectomy, Back Surgery, Bladder Surgery, Breast Surgery, Cholecystectomy, Heart Catheterization, Hysterectomy, Orthopedic Surgery, Tonsillectomy Additional Past Surgical History / Comment(s): Lumbar fusions, bladder suspension, occipital nerve blocks, 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 Past Anesthesia/Blood Transfusion Reactions: Motion Sickness Additional Past Anesthesia/Blood Transfusion Reaction / Comment(s): never recieved blood Past Psychological History: No Psychological Hx Reported Smoking Status: Former smoker Past Alcohol Use History: Occasional - Past Family History Father Family Medical History: Coronary Artery Disease (CAD), CVA/TIA, Diabetes Mellitus, Myocardial Infarction (CO), Pneumonia Additional Family Medical History / Comment(s): ather at the age of 78yrs from CO and pneumonia. Mother Family Medical History: Cancer Additional Family Medical History / Comment(s): Mother had uterine cancer. She is 96yrs old. General Exam Limitations: no limitations General appearance: alert, in no apparent distress Head exam: Present: atraumatic, normocephalic Eye exam: Present: normal appearance, PERRL, EOMI. Absent: scleral icterus ENT exam: Present: normal exam Neck exam: Present: normal inspection Respiratory exam: Present: normal lung sounds bilaterally. Absent: respiratory distress, wheezes, rales Cardiovascular Exam: Present: regular rate, normal rhythm GI/Abdominal exam: Present: soft. Absent: distended, tenderness Rectal exam: Present: deferred Extremities exam: Present: normal inspection Back exam: Present: normal inspection Neurological exam: Present: alert, oriented X3, other (Neuro exam is unremarkable except for difficulty with finger to nose testing bilaterally.) Psychiatric exam: Present: normal affect, normal mood Skin exam: Present: warm, dry, intact Course Vital Signs 12/08/18 12/08/18 11:28 16:30 Temperature 98.5 F Pulse Rate 107 H 84 Respiratory 18 14 Rate Blood Pressure 149/81 145/82 O2 Sat by Pulse 97 98 Oximetry Medical Decision Making - Medical Decision Making Patient presents with a chief complaint of headache, weakness, nausea and vomiting. She also complains of dizziness which she states feels the room spinning around her. On initial evaluation, vitals are stable, patient is in no acute distress. Exam concerning for discoordination with finger to nose testing . Symptom onset was therefore patient is not a TPA candidate, she will be evaluated with computed tomography scan without contrast, basic labs, chest x-ray, cardiac enzymes. Patient will be admitted for further evaluation with MRI and given concern for cerebellar pathology. 5:33 PM Evaluation is significant for urinary tract infection a mildly elevated white blood cell count. Patient started on Levaquin. Computed tomography scan of the head shows old lacunar infarct which is stable to previous studies. The results agreeable with admission. Case discussed with Dr. Harrell who accepts admission consult to neurology. - Lab Data Result diagrams: 12/08/18 13:39 12/08/18 13:39 Lab Results 12/08/18 12/08/18 12/08/18 Range/Units 13:39 13:39 13:39 WBC 12.3 H (3.8-10.6) k/uL RBC 5.07 (3.80-5.40) m/uL Hgb 13.4 (11.4-16.0) gm/dL Hct 42.7 (34.0-46.0) % MCV 84.2 (80.0-100.0) fL MCH 26.4 (25.0-35.0) pg MCHC 31.4 (31.0-37.0) g/dL RDW 14.3 (11.5-15.5) % Plt Count 241 (150-450) k/uL Neutrophils % 73 % Lymphocytes % 16 % Monocytes % 6 % Eosinophils % 4 % Basophils % 0 % Neutrophils # 9.0 H (1.3-7.7) k/uL Lymphocytes # 2.0 (1.0-4.8) k/uL Monocytes # 0.7 (0-1.0) k/uL Eosinophils # 0.4 (0-0.7) k/uL Basophils # 0.0 (0-0.2) k/uL Sodium 140 (137-145) mmol/L Potassium 3.8 (3.5-5.1) mmol/L Chloride 102 (98-107) mmol/L Carbon Dioxide 23 (22-30) mmol/L Anion Gap 15 mmol/L BUN 12 (7-17) mg/dL Creatinine 0.71 (0.52-1.04) mg/dL Est GFR (CKD-EPI)AfAm >90 (>60 ml/min/1.73 sqM) Est GFR (CKD-EPI)NonAf 88 (>60 ml/min/1.73 sqM) Glucose 135 H (74-99) mg/dL Calcium 10.4 H (8.4-10.2) mg/dL Total Bilirubin 1.2 (0.2-1.3) mg/dL AST 20 (14-36) U/L ALT 13 (9-52) U/L Alkaline Phosphatase 71 (38-126) U/L Troponin I <0.012 (0.000-0.034) ng/mL Total Protein 6.8 (6.3-8.2) g/dL Albumin 4.2 (3.5-5.0) g/dL Urine Color Urine Appearance (Clear) Urine pH (5.0-8.0) Ur Specific [place] (1.001-1.035) Urine Protein (Negative) Urine Glucose (UA) (Negative) Urine Ketones (Negative) Urine Blood (Negative) Urine Nitrite (Negative) Urine Bilirubin (Negative) Urine Urobilinogen (<2.0) mg/dL Ur Leukocyte Esterase (Negative) Urine RBC (0-5) /hpf Urine WBC (0-5) /hpf Urine Bacteria (None) /hpf Hyaline Casts (0-2) /lpf Urine Mucus (None) /hpf 12/08/18 Range/Units 15:43 WBC (3.8-10.6) k/uL RBC (3.80-5.40) m/uL Hgb (11.4-16.0) gm/dL Hct (34.0-46.0) % MCV (80.0-100.0) fL MCH (25.0-35.0) pg MCHC (31.0-37.0) g/dL RDW (11.5-15.5) % Plt Count (150-450) k/uL Neutrophils % % Lymphocytes % % Monocytes % % Eosinophils % % Basophils % % Neutrophils # (1.3-7.7) k/uL Lymphocytes # (1.0-4.8) k/uL Monocytes # (0-1.0) k/uL Eosinophils # (0-0.7) k/uL Basophils # (0-0.2) k/uL Sodium (137-145) mmol/L Potassium (3.5-5.1) mmol/L Chloride (98-107) mmol/L Carbon Dioxide (22-30) mmol/L Anion Gap mmol/L BUN (7-17) mg/dL Creatinine (0.52-1.04) mg/dL Est GFR (CKD-EPI)AfAm (>60 ml/min/1.73 sqM) Est GFR (CKD-EPI)NonAf (>60 ml/min/1.73 sqM) Glucose (74-99) mg/dL Calcium (8.4-10.2) mg/dL Total Bilirubin (0.2-1.3) mg/dL AST (14-36) U/L ALT (9-52) U/L Alkaline Phosphatase (38-126) U/L Troponin I (0.000-0.034) ng/mL Total Protein (6.3-8.2) g/dL Albumin (3.5-5.0) g/dL Urine Color Yellow Urine Appearance Turbid H (Clear) Urine pH 6.0 (5.0-8.0) Ur Specific [place] 1.026 (1.001-1.035) Urine Protein 2+ H (Negative) Urine Glucose (UA) Negative (Negative) Urine Ketones 4+ H (Negative) Urine Blood Moderate H (Negative) Urine Nitrite Positive H (Negative) Urine Bilirubin 1+ H (Negative) Urine Urobilinogen 4.0 (<2.0) mg/dL Ur Leukocyte Esterase Large H (Negative) Urine RBC 161 H (0-5) /hpf Urine WBC >182 H (0-5) /hpf Urine Bacteria Occasional H (None) /hpf Hyaline Casts 68 H (0-2) /lpf Urine Mucus Many H (None) /hpf Disposition Clinical Impression: Urinary tract infection, Migraine, Discoordination, Weakness Disposition: ADMITTED IP TO THIS HOSP Condition: Fair Is patient prescribed a controlled substance at d/c from ED?: No Referrals: Allyson Guardado MD [Primary Care Provider] - 1-2 days Decision to Admit Reason: Admit from EC - Out of Hospital Transfer - Req. Specs Out of Hospital Transfer - Requested Specifics: Telemetry Unit
[2018-12-08 13:47] LABS: Basophils % (A) 0 %; Eosinophils # (A) 0.4 k/uL (0-0.7); Eosinophils % (A) 4 %; HCT 42.7 % (34.0-46.0); HGB 13.4 gm/dL (11.4-16.0); Lymphocytes % (A) 16 %; MCH 26.4 pg (25.0-35.0); MCHC 31.4 g/dL (31.0-37.0); MCV 84.2 fL (80.0-100.0); Mean Platelet Volume 7.9; Monocytes # (A) 0.7 k/uL (0-1.0); Monocytes % (A) 6 %; Neutrophils % (A) 73 %; Platelet Count 241 k/uL (150-450); RBC 5.07 m/uL (3.80-5.40); RDW 14.3 % (11.5-15.5); WBC 12.3 k/uL (3.8-10.6)
[2018-12-08 14:11] LABS: African American GFR (CKD) >90 (>60 ml/min/1.73 sqM); Albumin 4.2 g/dL (3.5-5.0); Anion Gap 15 mmol/L; Blood Urea Nitrogen 12 mg/dL (7-17); Calcium 10.4 mg/dL (8.4-10.2); Carbon Dioxide 23 mmol/L (22-30); Chloride 102 mmol/L (98-107); Glucose 135 mg/dL (74-99); Sodium 140 mmol/L (137-145); Total Bilirubin 1.2 mg/dL (0.2-1.3); Total Protein 6.8 g/dL (6.3-8.2)
[2018-12-08 14:12] LABS: ALT 13 U/L (9-52); AST 20 U/L (14-36); Alkaline Phosphatase 71 U/L (38-126); Potassium 3.8 mmol/L (3.5-5.1)
--- NOTE | 2018-12-08 15:01 | CT ---
EXAMINATION TYPE: CT brain wo con DATE OF EXAM: 12/08/2018 COMPARISON: 11/10/2018 HISTORY: PATEL and dizziness CT DLP: 1036 mGycm Automated exposure control for dose reduction was used. FINDINGS: There is cerebral cortical atrophy. There is no mass effect nor midline shift. There is no sign of in tracranial hemorrhage. Calvarium is intact. There is mucosal thickening left maxillary sinus. IMPRESSION: CEREBRAL ATROPHY. NO ACUTE INTRACRANIAL ABNORMALITY. OLD 8 MM LACUNAR INFARCT RIGHT INTERNAL CAPSULE. CHRONIC LEFT MAXILLARY SINUSITIS. NO CHANGE.
--- NOTE | 2018-12-08 15:11 | XR ---
EXAMINATION TYPE: XR chest 2V DATE OF EXAM: 12/08/2018 COMPARISON: 11/09/2018 HISTORY: Headache. Dizziness TECHNIQUE: Frontal and lateral views of the chest are obtained. FINDINGS: Heart is normal. Lungs are clear of consolidation. There is no pleural effusion. Bony thor ax is intact. There is osteopenia. There is mild loss of height of thoracic vertebra. IMPRESSION: No active cardiopulmonary disease. Mild osteoporotic type compression fractures. No gomez ge compared to old exam.
[2018-12-08 15:54] LABS: Appearance,Urine Turbid (Clear); Bacteria,Urine Occasional /hpf; Bilirubin,Urine 1+ (Negative); Blood,Urine Moderate (Negative); Color,Urine Yellow; Glucose,Urine (UA) Negative (Negative); Hyaline Casts,Urine 68 /lpf (0-2); Ketones,Urine 4+ (Negative); Leukocyte Esterase,Urine Large (Negative); Mucus,Urine Many /hpf; Nitrite,Urine Positive (Negative); Protein,Urine 2+ (Negative); RBC,Urine 161 /hpf (0-5); Specific Gravity,Urine 1.026 (1.001-1.035); WBC,Urine >182 /hpf (0-5)
[2018-12-08] MEDS ORDERED: LEVOFLOXACIN 500MG-D5W PMX 500 MG in DEXTROSE/WATER 1 100ML.BAG IVPB STA (16:35)
[2018-12-08] MEDS ORDERED: HYDROmorphone 0.5 MG/0.5 ML SYRINGE IVP STA (17:07)
[2018-12-08] MEDS ORDERED: HYDROmorphone 0.5 MG/0.5 ML SYRINGE IVP PRN (17:29)
[2018-12-08] MEDS ORDERED: NALOXONE 0.4 MG/ML 1 ML VIAL IV PRN (17:29)
[2018-12-08 20:43] LABS: Glucose,Whole Blood 331 mg/dL (75-99)
[2018-12-08] MEDS ORDERED: HYDROCORTISONE 10 MG TAB PO SCH (21:15)
[2018-12-08] MEDS ORDERED: MELATONIN 5 MG TABLET PO PRN (21:15)
[2018-12-08] MEDS ORDERED: MECLIZINE 25 MG TAB PO PRN (21:15)
[2018-12-08] MEDS: ATORVASTATIN 40 MG TAB PO SCH (22:18)
[2018-12-08] MEDS: METOPROLOL SUCCINATE (ER) 50 MG TAB.ER.24H PO SCH (22:19)
[2018-12-08] MEDS: INSULIN DETEMIR (LEVEMIR) 100 UNIT/ML SYR SQ SCH (22:19)
[2018-12-08] MEDS: HYDROcodone/APAP 10-325MG 1 EACH TAB PO PRN (22:19)
[2018-12-09] MEDS: HYDROcodone/APAP 10-325MG 1 EACH TAB PO PRN ×5 (03:07→23:22)
[2018-12-09 07:05] LABS: Glucose,Whole Blood 225 mg/dL (75-99)
[2018-12-09] MEDS ORDERED: HYDROCORTISONE 10 MG TAB PO SCH (07:30)
[2018-12-09 08:15] LABS: Basophils % (A) 0 %; Eosinophils % (A) 0 %; HCT 37.8 % (34.0-46.0); HGB 12.1 gm/dL (11.4-16.0); Hypochromasia Slight; Lymphocytes % (A) 10 %; MCH 27.3 pg (25.0-35.0); MCV 85.3 fL (80.0-100.0); Mean Platelet Volume 8.4; Monocytes # (A) 0.7 k/uL (0-1.0); Monocytes % (A) 7 %; Neutrophils # (A) 7.9 k/uL (1.3-7.7); Neutrophils % (A) 81 %; Platelet Count 220 k/uL (150-450); RBC 4.42 m/uL (3.80-5.40); RDW 14.9 % (11.5-15.5); WBC 9.8 k/uL (3.8-10.6)
[2018-12-09 08:38] LABS: African American GFR (CKD) >90 (>60 ml/min/1.73 sqM); Anion Gap 12 mmol/L; Blood Urea Nitrogen 14 mg/dL (7-17); Calcium 9.5 mg/dL (8.4-10.2); Carbon Dioxide 22 mmol/L (22-30); Chloride 104 mmol/L (98-107); Glucose 211 mg/dL (74-99); Sodium 138 mmol/L (137-145)
[2018-12-09] MEDS ORDERED: ACIDOPH PARACASEI B LACTIS PO SCH (09:00)
[2018-12-09] MEDS ORDERED: CRANBERRY 300 MG PO SCH (09:00)
[2018-12-09] MEDS ORDERED: NON-FORMULARY DRUG (Folic Acid [Folic Acid] 0.4 MG) PO SCH (09:00)
[2018-12-09] MEDS: INSULIN ASPART (NovoLOG) 100 UNIT/ML VIAL SQ SCH ×5 (09:17→21:11)
[2018-12-09] MEDS: CHOLECALCIFEROL 1,000 UNIT TAB PO SCH (09:18)
[2018-12-09] MEDS: ASPIRIN 81 MG PO SCH (09:21)
[2018-12-09] MEDS: LEVOFLOXACIN 750 MG TAB PO SCH (09:21)
[2018-12-09] MEDS: FERROUS SULFATE 325 MG TAB PO SCH (09:21)
[2018-12-09] MEDS: PANTOPRAZOLE 40 MG TABLET PO SCH ×2 (09:22→21:12)
[2018-12-09] MEDS: SERTRALINE 100 MG TAB PO SCH (09:22)
[2018-12-09] MEDS: LISINOPRIL 10 MG TAB PO SCH (09:22)
[2018-12-09] MEDS: THIAMINE 100 MG TAB PO SCH (09:22)
[2018-12-09] MEDS: MAGNESIUM OXIDE 400 MG TAB PO SCH (09:22)
[2018-12-09 12:06] LABS: Glucose,Whole Blood 196 mg/dL (75-99)
[2018-12-09] MEDS ORDERED: HYDROCORTISONE 20 MG TAB PO SCH (12:30)
--- NOTE | 2018-12-09 15:25 | P.HPIM ---
History of Present Illness H&P Date: 12/09/18 Chief Complaint: Headaches nausea vomiting Ms. Pena is a 67-year-old female with a past medical history of COPD, diabetes, DVT, fibromyalgia, hypertension, lipidemia, osteoarthritis, sleep apnea coming into the hospital complaining of generalized weakness and nausea and vomiting. Patient states that she has history of adrenal insufficiency and takes steroids. And she mentions that whenever she has a urinary tract infection, she feels like this. Patient denies having any burning micturition or blood in her urine. No complaints of lower abdominal pain. No complaints of low back pain. She mentions about having occipital headache. Patient uses a cane to walk. She does have gait instability, she denies having any issues with her balance that are new. Patient denies having any headaches blurring of vision. She denies having any slurring of speech or weakness of her extremities. Patient had a CAT scan of her head in the ED that was within normal limits. As per the ED notes the patient had discoordination with the [id number] test, as onset of symptoms was couple of days back, they said she is not a candidate for TPA. On further investigation the patient's urine revealed large leukocyte esterase and positive nitrates so she was started on Levaquin and admitted for further evaluation with a neurology consult. Today the patient is lying in bed comfortably. She denies having any nausea or vomiting. As mentioned above she states that whenever she has a UTI she feels like this. She complains of having occipital headache for the past couple of days. She denies having any visual disturbances. No neck stiffness. No fevers chills or rigors. Patient denies having any chest pain or palpitations. No cough or difficulty in breathing. No bone pain nausea vomiting or diarrhea. No weakness of her extremities. As far as she is concerned gait has been stable. Patient also mentions that she has hardware in her lower back, as she was told that she might get an MRI in the hospital. Review of Systems REVIEW OF SYSTEMS: PSYCH: No history of anxiety or depression NEURO:No c/o weakness of the extremties, No facial droop, No speech abnormalities. VASCULAR: No tingling or numbness in her feet or fingers, no edema HEMATOLOGIC: No history of easy bleeding and bruising . No recent infections . RESPIRATORY: No cough, No SOB, No chest discomfort. 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 GI: No abdominal pain, Nausea or vomiting. No constipation or diarrhea. 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 Date of last positivie culture/infection: 2010 MDRO Source:: 4th rt toe Past Surgical History: Appendectomy, Back Surgery, Bladder Surgery, Breast Surgery, Cholecystectomy, Heart Catheterization, Hysterectomy, Orthopedic Surgery, Tonsillectomy Additional Past Surgical History / Comment(s): Lumbar fusions, bladder suspension, occipital nerve blocks, 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 Past Anesthesia/Blood Transfusion Reactions: Motion Sickness Additional Past Anesthesia/Blood Transfusion Reaction / Comment(s): never recieved blood Past Psychological History: No Psychological Hx Reported Additional Psychological History / Comment(s): Pt resides with her spouse. She uses a walker if out shopping. she drives. She has a nebulizer, cpap, bsc, shower chair, bp machine, dexcom monitor system for her bs.. Smoking Status: Never smoker Past Alcohol Use History: Occasional Additional Past Alcohol Use History / Comment(s): no alcohol Past Drug Use History: None Reported - Past Family History Father Family Medical History: Coronary Artery Disease (CAD), CVA/TIA, Diabetes Mellitus, Myocardial Infarction (PA), Pneumonia Additional Family Medical History / Comment(s): ather at the age of 78yrs from PA and pneumonia. Mother Family Medical History: Cancer Additional Family Medical History / Comment(s): Mother had uterine cancer. She is 96yrs old. Medications and Allergies Home Medications Medication Instructions Recorded Confirmed Type Cholecalciferol [Vitamin D3 (25 3,000 unit PO DAILY@0700 12/01/14 12/08/18 History Mcg = 1000 Iu)] Ondansetron [Zofran] 4 mg PO Q6H PRN 10/12/15 12/08/18 History HYDROcodone/APAP 10-325MG [I[place]hoe 1 - 2 tab PO Q4-6H PRN 07/06/17 12/08/18 History 10-325] Metoprolol Succinate (ER) [Toprol 50 mg PO HS 07/06/17 12/08/18 History XL] Meclizine [Antivert] 25 mg PO QID PRN 11/26/17 12/08/18 History Magnesium Oxide 400 mg PO QAM 02/26/18 12/08/18 History Pantoprazole [Protonix] 40 mg PO BID 02/26/18 12/08/18 History Hydrocortisone [Cortef] 10 mg PO AC-LUNCH 05/18/18 12/08/18 History Hydrocortisone [Cortef] 15 mg PO AC-BRKFST 05/18/18 12/08/18 History Hydrocortisone [Cortef] 5 mg PO HS 06/26/18 12/08/18 History Aspirin 81 mg PO DAILY #0 07/02/18 12/08/18 Rx Budesonide [Pulmicort Flexhaler] 1 puff INHALATION RT-BID PRN 08/12/18 12/08/18 History Glucagon Emergency Kit 1 mg IM ONCE PRN 08/12/18 12/08/18 History Methocarbamol [Robaxin-750] 750 mg PO TID PRN 09/09/18 12/08/18 History Cranberry 300mg 300 mg PO BID 10/08/18 12/08/18 History Ferrous Sulfate [Iron (65 MG 325 mg PO DAILY 10/08/18 12/08/18 History Elemental)] Folic Acid 0.4 mg PO DAILY 10/08/18 12/08/18 History L.acidoph,Paracasei, B.lactis 2 cap PO BID 10/08/18 12/08/18 History [Probiotic] Melatonin 5 mg PO HS PRN 10/08/18 12/08/18 History Multivitamins, Thera Liquid 30 ml PO DAILY 10/08/18 12/08/18 History [Theragran Liquid (formulary)] Potassium 99 mg PO DAILY 10/08/18 12/08/18 History Thiamine [Vitamin B-1] 100 mg PO DAILY 10/08/18 12/08/18 History Vitamin B-Complex Drops 1 drop PO BID 10/08/18 12/08/18 History Lisinopril [Zestril] 10 mg PO QAM 11/08/18 12/08/18 History Insulin Glargine [Lantus] 32 unit SQ HS 11/09/18 12/08/18 History Atorvastatin [Lipitor] 40 mg PO HS #30 tab 11/16/18 12/08/18 Rx Sertraline [Zoloft] 100 mg PO QAM 11/30/18 12/08/18 History Insulin Aspart [NovoLOG Flexpen] 22 units SQ AC-BID 12/08/18 12/09/18 History Insulin Aspart [NovoLOG Flexpen] See Protocol SQ AC-TID 12/08/18 12/08/18 History Insulin Aspart [Novolog Flexpen] 22 unit SQ AC-BRKFST 12/08/18 12/09/18 History Prochlorperazine [Compazine] 10 mg PO Q8H PRN 12/08/18 12/08/18 History Promethazine HCl [Phenergan Syrup] 6.25 mg PO Q6H PRN 12/08/18 12/08/18 History Allergies Allergy/AdvReac Type Severity Reaction Status Date / Time butorphanol tartrate Allergy BLISTERS Verified 12/08/18 12:24 [From Stadol] IN MOUTH ceftriaxone [From Rocephin] Allergy Unknown Verified 12/08/18 12:24 clarithromycin [From Biaxin] Allergy Rash/Hives Verified 12/08/18 12:24 codeine Allergy Rash/Hives Verified 12/08/18 12:24 ergotamine tartrate Allergy Unknown Verified 12/08/18 12:24 [From Cafergot] erythromycin base Allergy RASH, GI Verified 12/08/18 12:24 [From E-Mycin] SYMPTOMS ketorolac tromethamine Allergy Rash/Hives Verified 12/08/18 12:24 [From Toradol] liraglutide [From Victoza] Allergy Rash/Hives Verified 12/08/18 12:24 morphine Allergy Rash/Hives Verified 12/08/18 12:24 Penicillins Allergy Rash/Hives Verified 12/08/18 12:24 pentazocine lactate Allergy SEVERE Verified 12/08/18 12:24 [From Talwin] BLISTERS IN MOUTH pregabalin [From Lyrica] Allergy Rash/Hives Verified 12/08/18 12:24 propoxyphene HCl Allergy Rash/Hives Verified 12/08/18 12:24 [From Darvon] Sulfa (Sulfonamide Allergy Rash/Hives Verified 12/08/18 12:24 Antibiotics) tramadol Allergy Unknown Verified 12/08/18 12:24 monosodium glutamate [MSG] AdvReac Nausea & Verified 12/08/18 12:24 Vomiting nalbuphine HCl [From Nubain] AdvReac Nausea & Verified 12/08/18 12:24 Vomiting Physical Exam Vitals: Vital Signs Temp Pulse Pulse Resp BP BP Pulse Ox 12/09/18 07:00 98.2 F 64 12 158/81 95 12/09/18 02:11 98.3 F 66 18 125/71 100 12/08/18 19:38 98.3 F 98 18 124/78 91 L 12/08/18 18:35 98.5 F 91 12 144/92 100 12/08/18 18:00 100 18 149/87 97 12/08/18 16:30 84 14 145/82 98 Intake and Output 12/09/18 12/09/18 12/09/18 06:59 14:59 22:59 Other: Voiding Method Diaper Incontinent # Voids 2 3 GEN. APPEARANCE: alert, in no apparent distress HEAD EXAM: atraumatic, normocephalic, normal inspection EYE EXAM: Exophthalmosis. Left eye there is mild crusting. No discharge. Conjunctiva is normal. NECK EXAM: normal inspection. Absent: tenderness, meningismus, full ROM. RESPIRATORY EXAM: normal lung sounds bilaterally. Absent: respiratory distress, wheezes, rales, rhonchi, stridor CARDIOVASCULAR EXAM: regular rate, normal rhythm, normal heart sounds. GI/ABDOMINAL EXAM: soft, normal bowel sounds. Absent: distended, tenderness, guarding, rebound, rigid EXTREMITIES EXAM: No pitting edema bilaterally BACK EXAM: No suprapubic tenderness. No CVA tenderness. NEUROLOGICAL EXAM: alert, oriented X3, no focal neurological deficits. No facial droop. Strength 4 out of 5 in all 4 extremities. Gait-unsteady but she could walk with minimal support. Finger-nose test- slow to reaction. PSYCHIATRIC EXAM: normal affect, normal mood SKIN EXAM: warm, dry, intact, normal color. Absent: rash Results Results: CT of the brain showing cerebellar atrophy. 8 mm lacunar infract right internal capsule. Chronic left maxillary sinusitis. CBC & Chem 7: 12/09/18 07:22 12/09/18 07:22 Labs: Abnormal Lab Results - Last 24 Hours (Table) 12/08/18 12/08/18 12/09/18 Range/Units 15:43 20:30 06:54 Neutrophils # (1.3-7.7) k/uL Glucose (74-99) mg/dL POC Glucose (mg/dL) 331 H 225 H (75-99) mg/dL Urine Appearance Turbid H (Clear) Urine Protein 2+ H (Negative) Urine Ketones 4+ H (Negative) Urine Blood Moderate H (Negative) Urine Nitrite Positive H (Negative) Urine Bilirubin 1+ H (Negative) Ur Leukocyte Esterase Large H (Negative) Urine RBC 161 H (0-5) /hpf Urine WBC >182 H (0-5) /hpf Urine Bacteria Occasional H (None) /hpf Hyaline Casts 68 H (0-2) /lpf Urine Mucus Many H (None) /hpf 12/09/18 12/09/18 12/09/18 Range/Units 07:22 07:22 11:53 Neutrophils # 7.9 H (1.3-7.7) k/uL Glucose 211 H (74-99) mg/dL POC Glucose (mg/dL) 196 H (75-99) mg/dL Urine Appearance (Clear) Urine Protein (Negative) Urine Ketones (Negative) Urine Blood (Negative) Urine Nitrite (Negative) Urine Bilirubin (Negative) Ur Leukocyte Esterase (Negative) Urine RBC (0-5) /hpf Urine WBC (0-5) /hpf Urine Bacteria (None) /hpf Hyaline Casts (0-2) /lpf Urine Mucus (None) /hpf Microbiology - Last 24 Hours (Table) 12/08/18 15:43 Urine Culture - Preliminary Urine,Voided Thrombosis Risk Factor Assmnt - Choose All That Apply Any of the Below Risk Factors Present?: Yes Each Factor Represents 1 point: Abnormal pulmonary function (COPD), Medical pt on bed rest, Obesity (BMI >25) Other Risk Factors: Yes Each Risk Factor Represents 2 Points: Age 61-74 years Each Risk Factor Represents 3 Points: History of DVT/PE, Positive Lupus Anticoagulant Thrombosis Risk Factor Assessment Total Risk Factor Score: 11 Thrombosis Risk Factor Assessment Level: High Risk Assessment and Plan Assessment: Assessment Acute urinary tract infection ? Gait instability Left eye conjunctivitis Hyperglycemia with uncontrolled diabetes type 2 insulin-dependent Fibromyalgia Chronic pain syndrome Chronic back pain and lumbar fusion surgery Adrenal insufficiency. Patient is on Cortef 3 times daily at home. History of DVT Hypertension Hyperlipidemia Osteoarthritis of multiple joints Obstructive sleep apnea on CPAP History of nephrolithiasis History of MRSA DVT prophylaxis PLAN: Patient has been started on levofloxacin, pending urine cultures. Patient had a CAT scan of the brain that was within normal limits. There was a concern about cerebellar signs. But on talking to the patient she has been having this for a long duration of time. No new changes. Neurology consult is pending. Patient has been restarted on her home medications. For her left eye conjunctivitis patient has been started on ciprofloxacin eyedrops. We'll adjust her insulin depending on her blood sugar levels. Further recommendations to follow depending on the progress of the patient.
[2018-12-09] MEDS: CIPROFLOXACIN 0.3% OPHTH OINT 3.5 GM TUBE LEFT EYE SCH ×2 (16:08→21:11)
[2018-12-09 17:09] LABS: Glucose,Whole Blood 215 mg/dL (75-99)
[2018-12-09] MEDS: HEPARIN SODIUM,PORCINE 5,000 UNIT/ML 1 ML VIAL SQ SCH ×2 (17:51→23:21)
[2018-12-09] MEDS: HYDROCORTISONE SUCCINATE 100 MG/2 ML VIAL IV SCH ×2 (17:51→23:21)
[2018-12-09 20:51] LABS: Glucose,Whole Blood 200 mg/dL (75-99)
[2018-12-09] MEDS: ATORVASTATIN 40 MG TAB PO SCH (21:11)
[2018-12-09] MEDS: METOPROLOL SUCCINATE (ER) 50 MG TAB.ER.24H PO SCH (21:12)
[2018-12-09] MEDS: INSULIN DETEMIR (LEVEMIR) 100 UNIT/ML SYR SQ SCH (21:12)
[2018-12-10] MEDS: HYDROcodone/APAP 10-325MG 1 EACH TAB PO PRN ×5 (03:07→20:49)
[2018-12-10 07:06] LABS: Glucose,Whole Blood 161 mg/dL (75-99)
[2018-12-10] MEDS: INSULIN ASPART (NovoLOG) 100 UNIT/ML VIAL SQ SCH ×7 (07:36→20:51)
[2018-12-10] MEDS: CHOLECALCIFEROL 1,000 UNIT TAB PO SCH (07:36)
[2018-12-10] MEDS: HYDROCORTISONE SUCCINATE 100 MG/2 ML VIAL IV SCH ×2 (07:37→17:05)
[2018-12-10] MEDS: HEPARIN SODIUM,PORCINE 5,000 UNIT/ML 1 ML VIAL SQ SCH ×2 (07:37→17:05)
[2018-12-10 08:46] LABS: Basophils % (A) 0 %; Eosinophils % (A) 0 %; HCT 37.8 % (34.0-46.0); HGB 11.5 gm/dL (11.4-16.0); Hypochromasia Slight; Lymphocytes # (A) 1.4 k/uL (1.0-4.8); Lymphocytes % (A) 15 %; MCH 26.3 pg (25.0-35.0); MCHC 30.5 g/dL (31.0-37.0); MCV 86.4 fL (80.0-100.0); Mean Platelet Volume 7.7; Monocytes # (A) 0.5 k/uL (0-1.0); Monocytes % (A) 6 %; Neutrophils # (A) 7.2 k/uL (1.3-7.7); Neutrophils % (A) 77 %; Platelet Count 214 k/uL (150-450); RBC 4.38 m/uL (3.80-5.40); RDW 14.3 % (11.5-15.5); WBC 9.3 k/uL (3.8-10.6)
[2018-12-10] MEDS: MAGNESIUM OXIDE 400 MG TAB PO SCH (09:15)
[2018-12-10] MEDS: FERROUS SULFATE 325 MG TAB PO SCH (09:15)
[2018-12-10] MEDS: LEVOFLOXACIN 750 MG TAB PO SCH (09:15)
[2018-12-10] MEDS: CIPROFLOXACIN 0.3% OPHTH OINT 3.5 GM TUBE LEFT EYE SCH ×2 (09:15→20:53)
[2018-12-10] MEDS: LISINOPRIL 10 MG TAB PO SCH (09:15)
[2018-12-10] MEDS: PANTOPRAZOLE 40 MG TABLET PO SCH ×2 (09:15→20:50)
[2018-12-10] MEDS: SERTRALINE 100 MG TAB PO SCH (09:16)
[2018-12-10] MEDS: THIAMINE 100 MG TAB PO SCH (09:16)
[2018-12-10] MEDS: ASPIRIN 81 MG PO SCH (09:22)
--- NOTE | 2018-12-10 11:12 | P.CNNES ---
History of Present Illness Consult date: 12/10/18 Requesting physician: Tyshawn Constantino Reason for Consult: Incoordination Chief complaint: "I didn't have a stroke" History of Present Illness: This is a 67-year-old right-handed female with multiple medical problems including hypertension, diabetes mellitus type 2, hyperlipidemia, COPD, DVT, o bstructive sleep apnea, fibromyalgia and osteoarthritis who presented to the hospital with generalized weakness, nausea and vomiting. She was diagnosed with a urinary tract infection. She was admitted to the hospital. When she was evaluated in the emergency room, she was found to have trouble with [id number] testing. Patient states to me today that the reason why she could not do the above tests was because she did not have her glasses on and that she was feeling quite ill at the time. Neurologically, patient denies decreased level of loss of consciousness, seizure, tremors, changes in vision, diplopia, amaurosis, facial numbness or droop, vertigo, dysarthria, dysphagia, aphasia, new focal numbness or weakness, bowel or bladder incontinence or ataxia. She already had a CT Head in the emergency room, with results discussed below. Patient declines further cranial imaging at this point as she really does not feel that she had a stroke. Review of Systems 14-point ROS performed and as per HPI. 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 Date of last positivie culture/infection: 2010 MDRO Source:: 4th rt toe Past Surgical History: Appendectomy, Back Surgery, Bladder Surgery, Breast Surgery, Cholecystectomy, Heart Catheterization, Hysterectomy, Orthopedic Surgery, Tonsillectomy Additional Past Surgical History / Comment(s): Lumbar fusions, bladder suspension, occipital nerve blocks, 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 Past Anesthesia/Blood Transfusion Reactions: Motion Sickness Additional Past Anesthesia/Blood Transfusion Reaction / Comment(s): never recieved blood Past Psychological History: No Psychological Hx Reported Additional Psychological History / Comment(s): Pt resides with her spouse. She uses a walker if out shopping. she drives. She has a nebulizer, cpap, bsc, shower chair, bp machine, dexcom monitor system for her bs.. Smoking Status: Never smoker Past Alcohol Use History: Occasional Additional Past Alcohol Use History / Comment(s): no alcohol Past Drug Use History: None Reported - Past Family History Father Family Medical History: Coronary Artery Disease (CAD), CVA/TIA, Diabetes Mellitus, Myocardial Infarction (ID), Pneumonia Additional Family Medical History / Comment(s): ather at the age of 78yrs from ID and pneumonia. Mother Family Medical History: Cancer Additional Family Medical History / Comment(s): Mother had uterine cancer. She is 96yrs old. Medications and Allergies Home Medications Medication Instructions Recorded Confirmed Type Cholecalciferol [Vitamin D3 (25 3,000 unit PO DAILY@0700 12/01/14 12/08/18 Hist ory Mcg = 1000 Iu)] Ondansetron [Zofran] 4 mg PO Q6H PRN 10/12/15 12/08/18 History HYDROcodone/APAP 10-325MG [[place] 1 - 2 tab PO Q4-6H PRN 07/06/17 12/08/18 History 10-325] Metoprolol Succinate (ER) [Toprol 50 mg PO HS 07/06/17 12/08/18 History XL] Meclizine [Antivert] 25 mg PO QID PRN 11/26/17 12/08/18 History Magnesium Oxide 400 mg PO QAM 02/26/18 12/08/18 History Pantoprazole [Protonix] 40 mg PO BID 02/26/18 12/08/18 History Hydrocortisone [Cortef] 10 mg PO AC-LUNCH 05/18/18 12/08/18 History Hydrocortisone [Cortef] 15 mg PO AC-BRKFST 05/18/18 12/08/18 History Hydrocortisone [Cortef] 5 mg PO HS 06/26/18 12/08/18 History Aspirin 81 mg PO DAILY #0 07/02/18 12/08/18 Rx Budesonide [Pulmicort Flexhaler] 1 puff INHALATION RT-BID PRN 08/12/18 12/08/18 History Glucagon Emergency Kit 1 mg IM ONCE PRN 08/12/18 12/08/18 History Methocarbamol [Robaxin-750] 750 mg PO TID PRN 09/09/18 12/08/18 History Cranberry 300mg 300 mg PO BID 10/08/18 12/08/18 History Ferrous Sulfate [Iron (65 MG 325 mg PO DAILY 10/08/18 12/08/18 History Elemental)] Folic Acid 0.4 mg PO DAILY 10/08/18 12/08/18 History L.acidoph,Paracasei, B.lactis 2 cap PO BID 10/08/18 12/08/18 History [Probiotic] Melatonin 5 mg PO HS PRN 10/08/18 12/08/18 History Multivitamins, Thera Liquid 30 ml PO DAILY 10/08/18 12/08/18 History [Theragran Liquid (formulary)] Potassium 99 mg PO DAILY 10/08/18 12/08/18 History Thiamine [Vitamin B-1] 100 mg PO DAILY 10/08/18 12/08/18 History Vitamin B-Complex Drops 1 drop PO BID 10/08/18 12/08/18 History Lisinopril [Zestril] 10 mg PO QAM 11/08/18 12/08/18 History Insulin Glargine [Lantus] 32 unit SQ HS 11/09/18 12/08/18 History Atorvastatin [Lipitor] 40 mg PO HS #30 tab 11/16/18 12/08/18 Rx Sertraline [Zoloft] 100 mg PO QAM 11/30/18 12/08/18 History Insulin Aspart [NovoLOG Flexpen] 22 units SQ AC-BID 12/08/18 12/09/18 History Insulin Aspart [NovoLOG Flexpen] See Protocol SQ AC-TID 12/08/18 12/08/18 Histo ry Insulin Aspart [Novolog Flexpen] 22 unit SQ AC-BRKFST 12/08/18 12/09/18 History Prochlorperazine [Compazine] 10 mg PO Q8H PRN 12/08/18 12/08/18 History Promethazine HCl [Phenergan Syrup] 6.25 mg PO Q6H PRN 12/08/18 12/08/18 History Allergies Allergy/AdvReac Type Severity Reaction Status Date / Time butorphanol tartrate Allergy BLISTERS Verified 12/08/18 12:24 [From Stadol] IN MOUTH ceftriaxone [From Rocephin] Allergy Unknown Verified 12/08/18 12:24 clarithromycin [From Biaxin] Allergy Rash/Hives Verified 12/08/18 12:24 codeine Allergy Rash/Hives Verified 12/08/18 12:24 ergotamine tartrate Allergy Unknown Verified 12/08/18 12:24 [From Cafergot] erythromycin base Allergy RASH, GI Verified 12/08/18 12:24 [From E-Mycin] SYMPTOMS ketorolac tromethamine Allergy Rash/Hives Verified 12/08/18 12:24 [From Toradol] liraglutide [From Victoza] Allergy Rash/Hives Verified 12/08/18 12:24 morphine Allergy Rash/Hives Verified 12/08/18 12:24 Penicillins Allergy Rash/Hives Verified 12/08/18 12:24 pentazocine lactate Allergy SEVERE Verified 12/08/18 12:24 [From Talwin] BLISTERS IN MOUTH pregabalin [From Lyrica] Allergy Rash/Hives Verified 12/08/18 12:24 propoxyphene HCl Allergy Rash/Hives Verified 12/08/18 12:24 [From Darvon] Sulfa (Sulfonamide Allergy Rash/Hives Verified 12/08/18 12:24 Antibiotics) tramadol Allergy Unknown Verified 12/08/18 12:24 monosodium glutamate [MSG] AdvReac Nausea & Verified 12/08/18 12:24 Vomiting nalbuphine HCl [From Nubain] AdvReac Nausea & Verified 12/08/18 12:24 Vomiting Physical Examination - Vital Signs Vital Signs: Vital Signs Temp Pulse Resp BP Pulse Ox 12/10/18 07:48 60 18 12/10/18 07:00 98.5 F 60 18 173/80 97 12/10/18 02:11 97.6 F 59 L 18 152/83 95 12/09/18 19:25 16 12/09/18 19:15 99.4 F 69 16 150/86 96 12/09/18 15:00 98 F 69 12 136/70 96 Intake and Output 12/09/18 12/10/18 12/10/18 22:59 06:59 14:59 Other: Voiding Method Toilet Toilet # Voids 2 2 Gen NAD Pleasant and cooperative HEENT NCAT Sclera without icterus Bilateral exophthalmos O/P clear Neck Supple No carotid bruit Cor RRR no m/r/g Lungs CTAB Abd Soft NTND +BS Ext Warm to touch No edema Neuro MS A+Ox4 Normal fluency Able to follow all commands CN PERRL VFF no APD EOMI no nystagmus or KATIE No facial asymmetry Masseter's symmetric Hearing intact to normal voice bilaterally Speech not dysarthric Equal elevation of palate Tongue midline Sym shrug and SCM bilaterally Motor Normal bulk/tone No pronator or tremors Strength 5/5 sym throughout Sens Intact to LT x4 No neglect Coord No dysmetria on FTN/HTS bilaterally KEVIN w/o dysdiadochokinesis No rebound or loss of corby DTRs 2+/4 sym throughout Toes downgoing bilaterally No clonus at achilles Gait Deferred Results - Laboratory Findings CBC and BMP: 12/10/18 07:23 12/09/18 07:22 Abnormal Lab Findings: Abnormal Labs 12/08/18 12/08/18 12/08/18 13:39 13:39 15:43 WBC 12.3 H MCHC Neutrophils # 9.0 H Glucose 135 H POC Glucose (mg/dL) Calcium 10.4 H Urine Appearance Turbid H Urine Protein 2+ H Urine Ketones 4+ H Urine Blood Moderate H Urine Nitrite Positive H Urine Bilirubin 1+ H Ur Leukocyte Esterase Large H Urine RBC 161 H Urine WBC >182 H Urine Bacteria Occasional H Hyaline Casts 68 H Urine Mucus Many H 12/08/18 12/09/18 12/09/18 20:30 06:54 07:22 WBC MCHC Neutrophils # 7.9 H Glucose POC Glucose (mg/dL) 331 H 225 H Calcium Urine Appearance Urine Protein Urine Ketones Urine Blood Urine Nitrite Urine Bilirubin Ur Leukocyte Esterase Urine RBC Urine WBC Urine Bacteria Hyaline Casts Urine Mucus 12/09/18 12/09/18 12/09/18 07:22 11:53 16:53 WBC MCHC Neutrophils # Glucose 211 H POC Glucose (mg/dL) 196 H 215 H Calcium Urine Appearance Urine Protein Urine Ketones Urine Blood Urine Nitrite Urine Bilirubin Ur Leukocyte Esterase Urine RBC Urine WBC Urine Bacteria Hyaline Casts Urine Mucus 12/09/18 12/10/18 12/10/18 20:40 06:52 07:23 WBC MCHC 30.5 L Neutrophils # Glucose POC Glucose (mg/dL) 200 H 161 H Calcium Urine Appearance Urine Protein Urine Ketones Urine Blood Urine Nitrite Urine Bilirubin Ur Leukocyte Esterase Urine RBC Urine WBC Urine Bacteria Hyaline Casts Urine Mucus - Diagnostic Findings Additional findings: CT head without contrast 12/08/2018. Cerebral atrophy. There is an 8 mm hypodensity in the right internal capsule without mass effect. This is c onsistent with an old lacunar ischemic infarct. There is thickening of the mucosa of the left maxillary sinus. No acute intracranial abnormalities are seen. TTE 11/10/18. Left ventricular size normal. Severe concentric left ventricular hypertrophy. EF between 55-60%. Left atrial size normal. Intra-atrial and interventricular septum intact. No intracardiac thrombi visualized. I have reviewed all neuro images myself. Assessment and Plan Assessment: Incoordination- non-focal exam now. Index of suspicion of new acute intracranial ischemic event low at this point. 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 Plan: -ASA 81mg po qd -Statin therapy -Goals BP <130/80, hga1c <7.0 and LDL <70 -TTE just done back in 10/2018. Will not repeat. -Carotid duplex as she does have evidence of an old anterior circulation ischemic infarct. -Treat UTI/medical management -Will follow up Thank you for this consultation. Please call with ?. Time with Patient: Greater than 30 (Time spent in direct patient care, greater than 50% of which was spent in [id number] counseling and coordination of care: 70 minutes.)
[2018-12-10 12:05] LABS: Glucose,Whole Blood 74 mg/dL (75-99)
--- NOTE | 2018-12-10 14:45 | US ---
EXAMINATION TYPE: US carotid duplex BILAT DATE OF EXAM: 12/10/2018 COMPARISON: US 2017 CLINICAL HISTORY: Old right IC lacunar CVA. Dizziness, exam done portable. EXAM MEASUREMENTS: RIGHT: Peak Systolic Velocity (PSV) cm/sec ----- Right CCA: 49.7 ----- Right ICA: 60.5 ----- Right ECA: 72.2 ICA/CCA ratio: 1.2 RIGHT: End Diastole cm/sec ----- Right CCA: 10.6 ----- Right ICA: 20.7 ----- Right ECA: 9.9 LEFT: Peak Systolic Velocity (PSV) cm/sec ----- Left CCA: 56.7 ----- Left ICA: 91.5 ----- Left ECA: 63.4 ICA/CCA ratio: 1.6 LEFT: End Diastole cm/sec ----- Left CCA: 11.6 ----- Left ICA: 27.7 ----- Left ECA: 0.0 VERTEBRALS (direction of flow): Right Vertebral: Antegrade Left Vertebral: Antegrade Rhythm: Normal Difficult study due to patient's heavy breathing and torturous vessels. Bilateral intimal thickening, plaque bilateral bulb, no elevated velocities, no significant stenosis. IMPRESSION: Mild degree of grayscale atheromatous plaquing with no sonographically evident hemodynam ically significant stenosis within either visualized carotid arterial system. Criteria for Assigning % of Stenosis / Diameter reduction (Estimation based on the indirect measurements of the internal carotid artery velocities (ICA PSV). 1. Normal (no stenosis)=ICA PSV < 125 cm/s: ratio < 2.0: ICA EDV<40 cm/s. 2. Less than 50% stenosis=ICA PSV < 125 cm/s: ratio < 2.0: ICA EDV<40 cm/s. 3. 50 to 69% stenosis=ICA PSV of 125 to 230 cm/s: ration 2.0 ? 4.0: ICA EDV 40-100 cm/s. 4. Greater than 70% stenosis to near occlusion= ICA PSV > 230 cm/s: ratio > 4.0: ICA EDV > 100 cm/s. 5. Near occlusion= ICA PSV velocities may be low or undetectable: variable ratio and ICA EDV. 6. Total occlusion=unable to detect flow.
[2018-12-10 16:57] LABS: Glucose,Whole Blood 157 mg/dL (75-99)
--- NOTE | 2018-12-10 19:36 | P.PN ---
Subjective Ms. Pena is a 67-year-old female with a past medical history of COPD, diabetes, DVT, fibromyalgia, hypertension, lipidemia, osteoarthritis, sleep apnea coming into the hospital complaining of generalized weakness and nausea and vomiting. Patient states that she has history of adrenal insufficiency and takes steroids. And she mentions that whenever she has a urinary tract infection, she feels like this. Patient denies having any burning micturition or blood in her urine. No complaints of lower abdominal pain. No complaints of low back pain. She mentions about having occipital headache. Patient uses a cane to walk. She does have gait instability, she denies having any issues with her balance that are new. Patient denies having any headaches blurring of vision. She denies having any slurring of speech or weakness of her extremities. Patient had a CAT scan of her head in the ED that was within normal limits. As per the ED notes the patient had discoordination with the [id number] test, as onset of symptoms was couple of days back, they said she is not a candidate for TPA. On further investigation the patient's urine revealed large leukocyte esterase and positive nitrates so she was started on Levaquin and admitted for further evaluation with a neurology consult. Today the patient is lying in bed comfortably. She denies having any nausea or vomiting. As mentioned above she states that whenever she has a UTI she feels like this. She complains of having occipital headache for the past couple of days. She denies having any visual disturbances. No neck stiffness. No fevers chills or rigors. Patient denies having any chest pain or palpitations. No cough or difficulty in breathing. No bone pain nausea vomiting or diarrhea. No weakness of her extremities. As far as she is concerned gait has been stable. Patient also mentions that she has hardware in her lower back, as she was told that she might get an MRI in the hospital. 12/10/2018 pt is a pleasant 68 yo F who presents with UTI and gait imbalance , she is been evaluated by neuro and suspicion for stroke is low for now and recommend to c/w medical therapy . pt feels she is improving , urine culture is pending final results. pt is afebrile . continue with aspirin she is on levaquin , also on hydrocortisone for h/o adr insufficiency, c/w insulin and protoinx Objective - Vital Signs Vital signs: Vital Signs Temp 98.5 F 12/10/18 15:34 Pulse 61 12/10/18 15:34 Resp 18 12/10/18 16:25 BP 157/79 12/10/18 15:34 Pulse Ox 97 12/10/18 15:34 Intake & Output 12/10/18 12/10/18 12/11/18 06:59 18:59 06:59 Intake Total 440 Balance 440 Intake: Oral 440 Other: Voiding Method Toilet Toilet # Voids 2 2 - Exam GENERAL: The patient is alert and oriented x3, not in any acute distress. Well developed, well nourished. HEENT: Pupils are round and equally reacting to light. EOMI. No scleral icterus. No conjunctival pallor. Normocephalic, atraumatic. No pharyngeal erythema. No thyromegaly. CARDIOVASCULAR: S1 and S2 present. No murmurs, rubs, or gallops. PULMONARY: Chest is clear to auscultation, no wheezing or crackles. ABDOMEN: Soft, nontender, nondistended, normoactive bowel sounds. No palpable organomegaly. MUSCULOSKELETAL: No joint swelling or deformity. EXTREMITIES: No cyanosis, clubbing, or pedal edema. -NEUROLOGICAL: Gross neurological examination did not reveal any focal deficits. gait is with little imbalance SKIN: No rashes. - Labs CBC & Chem 7: 12/10/18 07:23 12/09/18 07:22 Labs: Abnormal Lab Results - Last 24 Hours (Table) 12/09/18 12/10/18 12/10/18 Range/Units 20:40 06:52 07:23 MCHC 30.5 L (31.0-37.0) g/dL POC Glucose (mg/dL) 200 H 161 H (75-99) mg/dL 12/10/18 12/10/18 Range/Units 11:42 16:46 MCHC (31.0-37.0) g/dL POC Glucose (mg/dL) 74 L 157 H (75-99) mg/dL Microbiology - Last 24 Hours (Table) 12/08/18 15:43 Urine Culture - Preliminary Urine,Voided Gram Neg Bacilli Assessment and Plan Assessment: Acute urinary tract infection Gait instability secondary to above, cleared by neurologist. improving . PT/OT: home Left eye conjunctivitis, improving Hyperglycemia with uncontrolled diabetes type 2 insulin-dependent Fibromyalgia Chronic pain syndrome Chronic back pain and lumbar fusion surgery Adrenal insufficiency. Patient is on Cortef 3 times daily at home. History of DVT Hypertension Hyperlipidemia Osteoarthritis of multiple joints Obstructive sleep apnea on CPAP History of nephrolithiasis History of MRSA Plan: Patient has been started on levofloxacin, pending urine cultures. Patient had a CAT scan of the brain that was within normal limits.pt with unsteady gait secondary to UTI, Neurology consult recommend no further intervention. Patient has been restarted on her home medications. For her left eye conjunctivitis patient has been started on ciprofloxacin eyedrops. We'll adjust her insulin depending on her blood sugar levels. gi and dvt px. Further recommendations to follow depending on the progress of the patient. f/u PT.OT : home
[2018-12-10 20:14] LABS: Glucose,Whole Blood 244 mg/dL (75-99)
[2018-12-10] MEDS: METOPROLOL SUCCINATE (ER) 50 MG TAB.ER.24H PO SCH (20:50)
[2018-12-10] MEDS: ATORVASTATIN 40 MG TAB PO SCH (20:50)
[2018-12-10] MEDS: INSULIN DETEMIR (LEVEMIR) 100 UNIT/ML SYR SQ SCH (20:53)
[2018-12-11] MEDS: HYDROCORTISONE SUCCINATE 100 MG/2 ML VIAL IV SCH ×4 (00:32→22:39)
[2018-12-11] MEDS: HEPARIN SODIUM,PORCINE 5,000 UNIT/ML 1 ML VIAL SQ SCH ×4 (00:38→22:40)
[2018-12-11] MEDS: HYDROcodone/APAP 10-325MG 1 EACH TAB PO PRN ×5 (01:03→17:32)
[2018-12-11 06:53] LABS: Glucose,Whole Blood 221 mg/dL (75-99)
[2018-12-11] MEDS: INSULIN ASPART (NovoLOG) 100 UNIT/ML VIAL SQ SCH ×7 (09:00→21:10)
[2018-12-11] MEDS: LEVOFLOXACIN 750 MG TAB PO SCH (09:01)
[2018-12-11] MEDS: LISINOPRIL 10 MG TAB PO SCH (09:01)
[2018-12-11] MEDS: MAGNESIUM OXIDE 400 MG TAB PO SCH (09:02)
[2018-12-11] MEDS: FERROUS SULFATE 325 MG TAB PO SCH (09:02)
[2018-12-11] MEDS: PANTOPRAZOLE 40 MG TABLET PO SCH ×2 (09:02→21:10)
[2018-12-11] MEDS: CHOLECALCIFEROL 1,000 UNIT TAB PO SCH (09:02)
[2018-12-11] MEDS: SERTRALINE 100 MG TAB PO SCH (09:02)
[2018-12-11] MEDS: THIAMINE 100 MG TAB PO SCH (09:02)
[2018-12-11] MEDS: ASPIRIN 81 MG PO SCH (09:02)
[2018-12-11] MEDS: CIPROFLOXACIN 0.3% OPHTH OINT 3.5 GM TUBE LEFT EYE SCH ×2 (09:13→21:12)
--- NOTE | 2018-12-11 10:12 | P.PN ---
Subjective Progress Note Date: 12/11/18 Principal diagnosis: Ataxia/Old CVA No events overnight. Carotid duplex. Patient remains neurologically asymptomatic. Objective - Vital Signs Vital signs: Vital Signs Temp 98.8 F 12/11/18 07:00 Pulse 55 L 12/11/18 07:00 Resp 15 12/11/18 07:00 BP 174/138 12/11/18 07:00 Pulse Ox 97 12/11/18 07:00 Intake & Output 12/10/18 12/11/18 12/11/18 18:59 06:59 18:59 Intake Total 440 240 Balance 440 240 Intake: Oral 440 240 Other: Voiding Method Toilet Toilet # Voids 2 1 - Exam Gen NAD Pleasant and cooperative MS A+Ox4 Normal speech CN II-XII grossly intact Motor Normal bulk/tone No tremors MILLS x4 Sens Intact to LT x4 Coord No dysmetria on FTN DTRs 2+/4 sym throughout Gait Deferred Carotid duplex 12/10/18. No hemodynamically significant stenosis in BICA. - Labs CBC & Chem 7: 12/10/18 07:23 12/09/18 07:22 Labs: Abnormal Lab Results - Last 24 Hours (Table) 12/10/18 12/10/18 12/10/18 Range/Units 11:42 16:46 20:02 POC Glucose (mg/dL) 74 L 157 H 244 H (75-99) mg/dL 12/11/18 Range/Units 06:41 POC Glucose (mg/dL) 221 H (75-99) mg/dL Assessment and Plan Assessment: Incoordination- Exam remains non-focal. Index of suspicion of new acute intracranial ischemic event low at this point. 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 Plan: -ASA 81mg po qd -Statin therapy -Goals BP <130/80, hga1c <7.0 and LDL <70 -TTE just done back in 10/2018. Will not repeat. -Carotid duplex unrevealing -Treat UTI/medical management -No further neuro recs at this point. Will sign off. Please call with new ?. Time with Patient: Less than 30
[2018-12-11 11:45] LABS: Glucose,Whole Blood 91 mg/dL (75-99)
--- NOTE | 2018-12-11 13:25 | P.PN ---
Subjective Ms. Pena is a 67-year-old female with a past medical history of COPD, diabetes, DVT, fibromyalgia, hypertension, lipidemia, osteoarthritis, sleep apnea coming into the hospital complaining of generalized weakness and nausea and vomiting. Patient states that she has history of adrenal insufficiency and takes steroids. And she mentions that whenever she has a urinary tract infection, she feels like this. Patient denies having any burning micturition or blood in her urine. No complaints of lower abdominal pain. No complaints of low back pain. She mentions about having occipital headache. Patient uses a cane to walk. She does have gait instability, she denies having any issues with her balance that are new. Patient denies having any headaches blurring of vision. She denies having any slurring of speech or weakness of her extremities. Patient had a CAT scan of her head in the ED that was within normal limits. As per the ED notes the patient had discoordination with the [id number] test, as onset of symptoms was couple of days back, they said she is not a candidate for TPA. On further investigation the patient's urine revealed large leukocyte esterase and positive nitrates so she was started on Levaquin and admitted for further evaluation with a neurology consult. Today the patient is lying in bed comfortably. She denies having any nausea or vomiting. As mentioned above she states that whenever she has a UTI she feels like this. She complains of having occipital headache for the past couple of days. She denies having any visual disturbances. No neck stiffness. No fevers chills or rigors. Patient denies having any chest pain or palpitations. No cough or difficulty in breathing. No bone pain nausea vomiting or diarrhea. No weakness of her extremities. As far as she is concerned gait has been stable. Patient also mentions that she has hardware in her lower back, as she was told that she might get an MRI in the hospital. 12/10/2018 pt is a pleasant 68 yo F who presents with UTI and gait imbalance , she is been evaluated by neuro and suspicion for stroke is low for now and recommend to c/w medical therapy . pt feels she is improving , urine culture is pending final results. pt is afebrile . continue with aspirin she is on levaquin , also on hydrocortisone for h/o adr insufficiency, c/w insulin and protoinx 12/11/2018 pt is still improving , she still has polyuria , her urine culture is still pending , we don't know which antibioitic she can be discharged on till we get her urine culture is back , and also dysuria improved she still complains from polyuria, her iv fluid can be stopped and pt monitored to see how she is doing , she still weak but improving . neurologically is intact . she has headache today Objective - Vital Signs Vital signs: Vital Signs Temp 98.8 F 12/11/18 07:00 Pulse 55 L 12/11/18 08:15 Resp 15 12/11/18 08:15 BP 174/138 12/11/18 07:00 Pulse Ox 97 12/11/18 07:00 Intake & Output 12/10/18 12/11/18 12/11/18 18:59 06:59 18:59 Intake Total 440 240 Balance 440 240 Intake: Oral 440 240 Other: Voiding Method Toilet Toilet Toilet # Voids 2 1 - Exam GENERAL: The patient is alert and oriented x3, not in any acute distress. Well developed, well nourished. HEENT: Pupils are round and equally reacting to light. EOMI. No scleral icterus. No conjunctival pallor. Normocephalic, atraumatic. No pharyngeal erythema. No thyromegaly. CARDIOVASCULAR: S1 and S2 present. No murmurs, rubs, or gallops. PULMONARY: Chest is clear to auscultation, no wheezing or crackles. ABDOMEN: Soft, nontender, nondistended, normoactive bowel sounds. No palpable organomegaly. MUSCULOSKELETAL: No joint swelling or deformity. EXTREMITIES: No cyanosis, clubbing, or pedal edema. -NEUROLOGICAL: Gross neurological examination did not reveal any focal deficits. gait is with little imbalance SKIN: No rashes. - Labs CBC & Chem 7: 12/10/18 07:23 12/09/18 07:22 Labs: Abnormal Lab Results - Last 24 Hours (Table) 12/10/18 12/10/18 12/11/18 Range/Units 16:46 20:02 06:41 POC Glucose (mg/dL) 157 H 244 H 221 H (75-99) mg/dL Assessment and Plan Assessment: Acute urinary tract infection Gait instability secondary to above, cleared by neurologist. improving . PT/OT: home Left eye conjunctivitis, improving Hyperglycemia with uncontrolled diabetes type 2 insulin-dependent Fibromyalgia Chronic pain syndrome Chronic back pain and lumbar fusion surgery Adrenal insufficiency. Patient is on Cortef 3 times daily at home. History of DVT Hypertension Hyperlipidemia Osteoarthritis of multiple joints Obstructive sleep apnea on CPAP History of nephrolithiasis History of MRSA Plan: Patient has been started on levofloxacin, pending urine cultures. Patient had a CAT scan of the brain that was within normal limits.pt with unsteady gait secondary to UTI, Neurology consult recommend no further intervention. Patient has been restarted on her home medications. For her left eye conjunctivitis patient has been started on ciprofloxacin eyedrops. We'll adjust her insulin depending on her blood sugar levels. gi and dvt px. Further recommendations to follow depending on the progress of the patient. f/u PT.OT : home Pending : she still has symptoms and UC is pending
[2018-12-11 16:45] LABS: Glucose,Whole Blood 211 mg/dL (75-99)
[2018-12-11 20:16] LABS: Glucose,Whole Blood 172 mg/dL (75-99)
[2018-12-11] MEDS: LIDOCAINE 5% PATCH TOPICAL SCH (21:07)
[2018-12-11] MEDS: ATORVASTATIN 40 MG TAB PO SCH (21:10)
[2018-12-11] MEDS: METOPROLOL SUCCINATE (ER) 50 MG TAB.ER.24H PO SCH (21:10)
[2018-12-11] MEDS: INSULIN DETEMIR (LEVEMIR) 100 UNIT/ML SYR SQ SCH (21:11)
[2018-12-11] MEDS: BUTALB/APAP/CAFF 50-325-40MG TAB PO PRN (21:15)
[2018-12-12] MEDS ORDERED: BUTALB/APAP/CAFF 50-325-40MG TAB PO ONE (01:15)
[2018-12-12] MEDS: BUTALB/APAP/CAFF 50-325-40MG TAB PO PRN ×5 (06:18→23:51)
[2018-12-12 07:13] LABS: Glucose,Whole Blood 112 mg/dL (75-99)
[2018-12-12] MEDS: INSULIN ASPART (NovoLOG) 100 UNIT/ML VIAL SQ SCH ×7 (07:45→21:30)
[2018-12-12] MEDS: HEPARIN SODIUM,PORCINE 5,000 UNIT/ML 1 ML VIAL SQ SCH ×3 (07:46→23:31)
[2018-12-12] MEDS: HYDROCORTISONE SUCCINATE 100 MG/2 ML VIAL IV SCH ×3 (07:46→21:30)
[2018-12-12] MEDS: SERTRALINE 100 MG TAB PO SCH (07:47)
[2018-12-12] MEDS: FERROUS SULFATE 325 MG TAB PO SCH (07:47)
[2018-12-12] MEDS: LEVOFLOXACIN 750 MG TAB PO SCH (07:47)
[2018-12-12] MEDS: LISINOPRIL 10 MG TAB PO SCH (07:47)
[2018-12-12] MEDS: PANTOPRAZOLE 40 MG TABLET PO SCH ×2 (07:47→21:31)
[2018-12-12] MEDS: THIAMINE 100 MG TAB PO SCH (07:47)
[2018-12-12] MEDS: CHOLECALCIFEROL 1,000 UNIT TAB PO SCH (07:47)
[2018-12-12] MEDS: MAGNESIUM OXIDE 400 MG TAB PO SCH (07:47)
[2018-12-12] MEDS: CIPROFLOXACIN 0.3% OPHTH OINT 3.5 GM TUBE LEFT EYE SCH ×2 (07:48→19:44)
[2018-12-12] MEDS: ASPIRIN 81 MG PO SCH (07:48)
[2018-12-12 11:15] LABS: Glucose,Whole Blood 111 mg/dL (75-99)
[2018-12-12 16:02] LABS: Appearance,Urine Clear (Clear); Bilirubin,Urine Negative (Negative); Blood,Urine Negative (Negative); Color,Urine Yellow; Glucose,Urine (UA) Negative (Negative); Ketones,Urine Negative (Negative); Leukocyte Esterase,Urine Large (Negative); Mucus,Urine Rare /hpf; Nitrite,Urine Negative (Negative); Protein,Urine 1+ (Negative); RBC,Urine 1 /hpf (0-5); Specific Gravity,Urine 1.022 (1.001-1.035); Urobilinogen,Urine <2.0 mg/dL (<2.0); WBC,Urine 43 /hpf (0-5)
[2018-12-12 16:47] LABS: Glucose,Whole Blood 147 mg/dL (75-99)
[2018-12-12] MEDS: ERTAPENEM 1 GM in SODIUM CHLORIDE 0.9% 50 ML IVPB SCH (18:02)
--- NOTE | 2018-12-12 20:04 | P.PN ---
Subjective Ms. Pena is a 67-year-old female with a past medical history of COPD, diabetes, DVT, fibromyalgia, hypertension, lipidemia, osteoarthritis, sleep apnea coming into the hospital complaining of generalized weakness and nausea and vomiting. Patient states that she has history of adrenal insufficiency and takes steroids. And she mentions that whenever she has a urinary tract infection, she feels like this. Patient denies having any burning micturition or blood in her urine. No complaints of lower abdominal pain. No complaints of low back pain. She mentions about having occipital headache. Patient uses a cane to walk. She does have gait instability, she denies having any issues with her balance that are new. Patient denies having any headaches blurring of vision. She denies having any slurring of speech or weakness of her extremities. Patient had a CAT scan of her head in the ED that was within normal limits. As per the ED notes the patient had discoordination with the [id number] test, as onset of symptoms was couple of days back, they said she is not a candidate for TPA. On further investigation the patient's urine revealed large leukocyte esterase and positive nitrates so she was started on Levaquin and admitted for further evaluation with a neurology consult. Today the patient is lying in bed comfortably. She denies having any nausea or vomiting. As mentioned above she states that whenever she has a UTI she feels like this. She complains of having occipital headache for the past couple of days. She denies having any visual disturbances. No neck stiffness. No fevers chills or rigors. Patient denies having any chest pain or palpitations. No cough or difficulty in breathing. No bone pain nausea vomiting or diarrhea. No weakness of her extremities. As far as she is concerned gait has been stable. Patient also mentions that she has hardware in her lower back, as she was told that she might get an MRI in the hospital. 12/10/2018 pt is a pleasant 68 yo F who presents with UTI and gait imbalance , she is been evaluated by neuro and suspicion for stroke is low for now and recommend to c/w medical therapy . pt feels she is improving , urine culture is pending final results. pt is afebrile . continue with aspirin she is on levaquin , also on hydrocortisone for h/o adr insufficiency, c/w insulin and protoinx 12/11/2018 pt is still improving , she still has polyuria , her urine culture is still pending , we don't know which antibioitic she can be discharged on till we get her urine culture is back , and also dysuria improved she still complains from polyuria, her iv fluid can be stopped and pt monitored to see how she is doing , she still weak but improving . neurologically is intact . she has headache today 12/12/2018 pt is doing significant progress and she is close back to baseline , with he strength is back , walking at baseline with no difficulty , denies chest pain or dyspnea , her urinary s/s improved , no dysurea and her urine frequency is improving . no n/v , tolerating diet , she is was looking to be discharge home today as also she has appointment with her surgeon for her parathyroid disease that pt wants to attend. however her UC came positive for Multi-drug resistant E.coli, we kept the pt in the hospital and call for infectious disease consult , discussed with staff , pt agrees with this plan Objective - Vital Signs Vital signs: Vital Signs Temp 98.2 F 12/12/18 13:00 Pulse 74 12/12/18 13:00 Resp 16 12/12/18 13:00 BP 158/84 12/12/18 13:00 Pulse Ox 97 12/12/18 13:00 Intake & Output 12/12/18 12/12/18 12/13/18 06:59 18:59 06:59 Intake Total 120 Balance 120 Intake: Oral 120 Other: Voiding Method Toilet # Voids 1 2 - Exam GENERAL: The patient is alert and oriented x3, not in any acute distress. Well developed, well nourished. HEENT: Pupils are round and equally reacting to light. EOMI. No scleral icterus. No conjunctival pallor. Normocephalic, atraumatic. No pharyngeal erythema. No thyromegaly. CARDIOVASCULAR: S1 and S2 present. No murmurs, rubs, or gallops. PULMONARY: Chest is clear to auscultation, no wheezing or crackles. ABDOMEN: Soft, nontender, nondistended, normoactive bowel sounds. No palpable organomegaly. MUSCULOSKELETAL: No joint swelling or deformity. EXTREMITIES: No cyanosis, clubbing, or pedal edema. -NEUROLOGICAL: Gross neurological examination did not reveal any focal deficits. gait is with little imbalance SKIN: No rashes. - Labs CBC & Chem 7: 12/10/18 07:23 12/09/18 07:22 Labs: Abnormal Lab Results - Last 24 Hours (Table) 12/11/18 12/12/18 12/12/18 Range/Units 20:14 07:10 11:13 POC Glucose (mg/dL) 172 H 112 H 111 H (75-99) mg/dL Urine Protein (Negative) Ur Leukocyte Esterase (Negative) Urine WBC (0-5) /hpf Urine Mucus (None) /hpf 12/12/18 12/12/18 Range/Units 15:40 16:34 POC Glucose (mg/dL) 147 H (75-99) mg/dL Urine Protein 1+ H (Negative) Ur Leukocyte Esterase Large H (Negative) Urine WBC 43 H (0-5) /hpf Urine Mucus Rare H (None) /hpf Assessment and Plan Assessment: Acute urinary tract infection with Multi-drug resistant E.coli Gait instability secondary to above, cleared by neurologist. improving . PT/OT: home Left eye conjunctivitis, improving Hyperglycemia with uncontrolled diabetes type 2 insulin-dependent Fibromyalgia Chronic pain syndrome Chronic back pain and lumbar fusion surgery Adrenal insufficiency. Patient is on Cortef 3 times daily at home. History of DVT Hypertension Hyperlipidemia Osteoarthritis of multiple joints Obstructive sleep apnea on CPAP History of nephrolithiasis History of MRSA Plan: Patient has been started on levofloxacin, pending urine cultures. Patient had a CAT scan of the brain that was within normal limits.pt with unsteady gait secondary to UTI, Neurology consult recommend no further intervention. Patient has been restarted on her home medications. For her left eye conjunctivitis patient has been started on ciprofloxacin eyedrops. We'll adjust her insulin depending on her blood sugar levels. gi and dvt px. Further recommendations to follow depending on the progress of the patient. f/u PT.OT : home Pending : infectious disease consult
[2018-12-12 20:49] LABS: Glucose,Whole Blood 229 mg/dL (75-99)
[2018-12-12] MEDS: LIDOCAINE 5% PATCH TOPICAL SCH (21:26)
[2018-12-12] MEDS: ATORVASTATIN 40 MG TAB PO SCH (21:27)
[2018-12-12] MEDS: INSULIN DETEMIR (LEVEMIR) 100 UNIT/ML SYR SQ SCH (21:29)
[2018-12-12] MEDS: METOPROLOL SUCCINATE (ER) 50 MG TAB.ER.24H PO SCH (21:30)
[2018-12-13 02:30] VITALS: PULSE 60
[2018-12-13] MEDS: BUTALB/APAP/CAFF 50-325-40MG TAB PO PRN ×2 (04:28→09:49)
--- NOTE | 2018-12-13 07:29 | P.CONS ---
History of Present Illness - Reason for Consult Consult date: 12/12/18 ESBL E. coli UTI Requesting physician: Nilo E Sheet - Chief Complaint nausea vomiting and urinary symptoms she - History of Present Illness Patient is a 68-year-old female presenting to the ER at [facility] with she complains of not feeling well nausea vomiting symptoms also included urinary frequency that has been going on for 2-3 days before her GI symptoms started. Denies significant burning of urine though and no suprapubic or flank pain denies having any fever or chills with these symptoms the patient was evaluated by the ER physician on presentation hospital patient was afebrile and remained to be afebrile throughout her hospital stay she did have elevated white count of 12.3 and a positive UA the patient has been started on Levaquin and urine culture were obtained which were finalized with ESBL E. coli that prompted this infection disease consultation, patient overall feeling better since admitted to the hospital and no further nausea and vomiting and her urinary symptoms has improved Review of Systems Positive points has been mentioned in HPI rest of the systems negative 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,DVT R calf in 1976, cardiac murmur.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, MRSA Year Discovered:: 12/08/18 ESBL/ 2010 MRSA MDRO Source:: ESBL URINE/ MRSA TOE Past Surgical History: Appendectomy, Back Surgery, Bladder Surgery, Breast Surgery, Cholecystectomy, Heart Catheterization, Hysterectomy, Orthopedic Surgery, Tonsillectomy Additional Past Surgical History / Comment(s): Lumbar fusions, bladder suspension, occipital nerve blocks, 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 Past Anesthesia/Blood Transfusion Reactions: Motion Sickness Additional Past Anesthesia/Blood Transfusion Reaction / Comm: never recieved blood Past Psychological History: No Psychological Hx Reported Additional Psychological History / Comment(s): Pt resides with her spouse. She uses a walker if out shopping. she drives. She has a nebulizer, cpap, bsc, sh ower chair, bp machine, dexcom monitor system for her bs.. Smoking Status: Never smoker Past Alcohol Use History: Occasional Additional Past Alcohol Use History / Comment(s): no alcohol Past Drug Use History: None Reported - Past Family History Father Family Medical History: Coronary Artery Disease (CAD), CVA/TIA, Diabetes Mellitus, Myocardial Infarction (VT), Pneumonia Additional Family Medical History / Comment(s): ather at the age of 78yrs from VT and pneumonia. Mother Family Medical History: Cancer Additional Family Medical History / Comment(s): Mother had uterine cancer. She is 96yrs old. Medications and Allergies Home Medications Medication Instructions Recorded Confirmed Type Cholecalciferol [Vitamin D3 (25 3,000 unit PO DAILY@0700 12/01/14 12/08/18 History Mcg = 1000 Iu)] Ondansetron [Zofran] 4 mg PO Q6H PRN 10/12/15 12/08/18 History Metoprolol Succinate (ER) [Toprol 50 mg PO HS 07/06/17 12/08/18 History XL] Meclizine [Antivert] 25 mg PO QID PRN 11/26/17 12/08/18 History Magnesium Oxide 400 mg PO QAM 02/26/18 12/08/18 History Pantoprazole [Protonix] 40 mg PO BID 02/26/18 12/08/18 History Hydrocortisone [Cortef] 10 mg PO AC-LUNCH 05/18/18 12/08/18 History Hydrocortisone [Cortef] 15 mg PO AC-BRKFST 05/18/18 12/08/18 History Hydrocortisone [Cortef] 5 mg PO HS 06/26/18 12/08/18 History Aspirin 81 mg PO DAILY #0 07/02/18 12/08/18 Rx Budesonide [Pulmicort Flexhaler] 1 puff INHALATION RT-BID PRN 08/12/18 12/08/18 History Glucagon Emergency Kit 1 mg IM ONCE PRN 08/12/18 12/08/18 History Methocarbamol [Robaxin-750] 750 mg PO TID PRN 09/09/18 12/08/18 History Cranberry 300mg 300 mg PO BID 10/08/18 12/08/18 History Ferrous Sulfate [Iron (65 MG 325 mg PO DAILY 10/08/18 12/08/18 History Elemental)] Folic Acid 0.4 mg PO DAILY 10/08/18 12/08/18 History L.acidoph,Paracasei, B.lactis 2 cap PO BID 10/08/18 12/08/18 History [Probiotic] Melatonin 5 mg PO HS PRN 10/08/18 12/08/18 History Multivitamins, Thera Liquid 30 ml PO DAILY 10/08/18 12/08/18 History [Theragran Liquid (formulary)] Potassium 99 mg PO DAILY 10/08/18 12/08/18 History Thiamine [Vitamin B-1] 100 mg PO DAILY 10/08/18 12/08/18 History Vitamin B-Complex Drops 1 drop PO BID 10/08/18 12/08/18 History Lisinopril [Zestril] 10 mg PO QAM 11/08/18 12/08/18 History Insulin Glargine [Lantus] 32 unit SQ HS 11/09/18 12/08/18 History Atorvastatin [Lipitor] 40 mg PO HS #30 tab 11/16/18 12/08/18 Rx Sertraline [Zoloft] 100 mg PO QAM 11/30/18 12/08/18 History Insulin Aspart [NovoLOG Flexpen] 22 unit SQ AC-BRKFST 12/08/18 12/09/18 History Insulin Aspart [NovoLOG Flexpen] 22 units SQ AC-BID 12/08/18 12/09/18 History Insulin Aspart [NovoLOG Flexpen] See Protocol SQ AC-TID 12/08/18 12/08/18 History Prochlorperazine [Compazine] 10 mg PO Q8H PRN 12/08/18 12/08/18 History Promethazine HCl [Phenergan Syrup] 6.25 mg PO Q6H PRN 12/08/18 12/08/18 History Butalb/APAP/Caff 50-325-40Mg 1 each PO Q4HR PRN 3 Days #10 tab 12/12/18 Rx [Fioricet 50-325-40] Lidocaine 5% Patch [Lidoderm 5% 1 patch TOPICAL Q24H #15 patch 12/12/18 Rx Patch] Allergies Allergy/AdvReac Type Severity Reaction Status Date / Time butorphanol tartrate Allergy BLISTERS Verified 12/08/18 12:24 [From Stadol] IN MOUTH ceftriaxone [From Rocephin] Allergy Unknown Verified 12/08/18 12:24 clarithromycin [From Biaxin] Allergy Rash/Hives Verified 12/08/18 12:24 codeine Allergy Rash/Hives Verified 12/08/18 12:24 ergotamine tartrate Allergy Unknown Verified 12/08/18 12:24 [From Cafergot] erythromycin base Allergy RASH, GI Verified 12/08/18 12:24 [From E-Mycin] SYMPTOMS ketorolac tromethamine Allergy Rash/Hives Verified 12/08/18 12:24 [From Toradol] liraglutide [From Victoza] Allergy Rash/Hives Verified 12/08/18 12:24 morphine Allergy Rash/Hives Verified 12/08/18 12:24 Penicillins Allergy Rash/Hives Verified 12/08/18 12:24 pentazocine lactate Allergy SEVERE Verified 12/08/18 12:24 [From Talwin] BLISTERS IN MOUTH pregabalin [From Lyrica] Allergy Rash/Hives Verified 12/08/18 12:24 propoxyphene HCl Allergy Rash/Hives Verified 12/08/18 12:24 [From Darvon] Sulfa (Sulfonamide Allergy Rash/Hives Verified 12/08/18 12:24 Antibiotics) tramadol Allergy Unknown Verified 12/08/18 12:24 monosodium glutamate [MSG] AdvReac Nausea & Verified 12/08/18 12:24 Vomiting nalbuphine HCl [From Nubain] AdvReac Nausea & Verified 12/08/18 12:24 Vomiting Physical Exam Vitals: Vital Signs Temp Pulse Pulse Resp BP Pulse Ox 12/12/18 13:00 98.2 F 74 16 158/84 97 12/12/18 07:11 98.4 F 51 L 16 165/87 98 12/12/18 06:09 52 L 20 174/82 12/12/18 05:01 98.0 F 50 L 17 181/83 94 L 12/12/18 04:00 18 12/11/18 22:12 18 12/11/18 19:55 18 12/11/18 19:47 98.3 F 56 L 17 158/76 96 Intake and Output 12/12/18 12/12/18 12/12/18 06:59 14:59 22:59 Other: # Voids 1 2 GENERAL DESCRIPTION: elderly female lying in bed, no distress. No tachypnea or accessory muscle of respiration use. HEENT: Shows Pallor , no scleral icterus. Oral mucous membrane is dry. No pharyngeal erythema or thrush NECK: Trachea central, no thyromegaly. LUNGS: Unlabored breathing. Clear to auscultation anteriorly. No wheeze or crackle. HEART: S1, S2, regular rate and rhythm. No loud murmur ABDOMEN: Soft, no tenderness , guarding or rigidity, no organomegaly EXTREMITIES: No edema of feet. SKIN: No rash, no masses palpable. NEUROLOGICAL: The patient is awake, alert, oriented x3, mood and affect normal Results CBC & Chem 7: 12/10/18 07:23 12/09/18 07:22 Labs: Abnormal Lab Results - Last 24 Hours (Table) 12/11/18 12/11/18 12/12/18 Range/Units 16:33 20:14 07:10 POC Glucose (mg/dL) 211 H 172 H 112 H (75-99) mg/dL Urine Protein (Negative) Ur Leukocyte Esterase (Negative) Urine WBC (0-5) /hpf Urine Mucus (None) /hpf 12/12/18 12/12/18 Range/Units 11:13 15:40 POC Glucose (mg/dL) 111 H (75-99) mg/dL Urine Protein 1+ H (Negative) Ur Leukocyte Esterase Large H (Negative) Urine WBC 43 H (0-5) /hpf Urine Mucus Rare H (None) /hpf Assessment and Plan Assessment: -patient with positive urine culture with ESBL E. coli and this patient who did present to the hospital with UTI symptoms of frequency and some nausea and vomiting however the patient's symptom improved without getting treatment for ESBL E. coli with a question of possible contamination or colonization Plan: 1-we will repeat a clean-catch UA and culture, to see the patient UA has improved with the current antibiotic therapy 2-empirically add Invanz 1 g daily while waiting for the repeat UA to be finalize we will follow up on clinical condition and cultures to further adjust medication if needed Thank you for this consultation will follow this patient along with you Time with Patient: Greater than 30
--- NOTE | 2018-12-13 07:33 | P.DS ---
Providers Date of admission: 12/10/18 19:51 Attending physician: Lili Harrell Consults: 12/08/18 17:29 Consult Physician Routine Consulting Provider: Juan M Hua Consult Reason/Comments: discoordination Do you want consulting provider notified?: Yes, Notify in am 12/12/18 14:15 Consult Physician Urgent Consulting Provider: Chalino Osman Consult Reason/Comments: ESBL UTI ( e coli) Do you want consulting provider notified?: Yes Primary care physician: Allyson Guardado MD Hospital Course: Dx: Acute urinary tract infection with Multi-drug resistant E.coli. patient will be discharged on antibiotics per ID recommendation ( see dc instructions) Gait instability secondary to above, cleared by neurologist. improving . PT/OT: home Chronic Occipital headache secondary to degenerative joint disease, improvement with therapy History of hyperparathyroidism, going to be evaluated by her surgeon today on 12/13/2018 as an outpatient Left eye conjunctivitis, improving Hyperglycemia with uncontrolled diabetes type 2 insulin-dependent Fibromyalgia Chronic pain syndrome Chronic back pain and lumbar fusion surgery Adrenal insufficiency. Patient is on Cortef 3 times daily at home. History of DVT Hypertension Hyperlipidemia Osteoarthritis of multiple joints Obstructive sleep apnea on CPAP History of nephrolithiasis History of MRSA Hospital course: Ms. Pena is a 67-year-old female with a past medical history of COPD, diabetes, DVT, fibromyalgia, hypertension, lipidemia, osteoarthritis, sleep apnea , Patient states that she has history of adrenal insufficiency and takes steroids. coming into the hospital complaining of generalized weakness and nausea and vomiting. And she mentions that whenever she has a urinary tract infection, she feels like this. Patient was started on Levaquin for UTI. Patient showed interval improvement. On admission her dysuria and polyuria have resolved, also nausea vomiting improved and she gained her strength back, she is able to walk independently and physical therapy recommended home. She has chronic occipital headache mostly related to her cervical spine degenerative joint disease, she denies weakness or numbness in her upper extremity, her pain is significantly improved with lidocaine patch and Fioricet. Culture came back positive for multidrug resistant E. coli. Infectious disease consultation obtained and patient will be discharged on antibiotic per ID recommendation. Blood pressure is elevated because she received her doses of intravenous of hydrocortisone, expecting her blood pressure to improve with resuming her lower dose home medication of hydrocortisone . Patient also has been able with by neurologist and no further recommendation is indicated. Patient was instructed to go home today and also she has appointment with her surgeon for her parathyroid gland disease and possible surgery procedure. On the day of discharge she denies chest pain, and she denies dyspnea, no abdominal pain or nausea vomiting, she started in her diet well, she has regular bowel movement. No fever. Problems and management plan were discussed with the patient and he verbalized understanding and acceptance Patient was found stable and can be discharged home however he needs follow-up as an outpatient. Patient was instructed to follow up with her PCP and infectious disease team within one week and she agrees. Patient has medical st aff to make appointments for her Gen: patient is a AAOx3, no distress CVS: S1-S2, RRR, no murmur Lungs: B/L CTA, no wheezing Abdomen: soft, no distention, no tenderness, positive bowel sounds Extremity: no leg edema or induration Time spent more than 35 minutes Patient Condition at Discharge: Fair Plan - Discharge Summary Discharge Rx Participant: Yes New Discharge Prescriptions: New Butalb/APAP/Caff 50-325-40Mg [Fioricet 50-325-40] 1 each PO Q4HR PRN 3 Days #10 tab PRN Reason: Headache Lidocaine 5% Patch [Lidoderm 5% Patch] 1 patch TOPICAL Q24H #15 patch Continue Cholecalciferol [Vitamin D3 (25 Mcg = 1000 Iu)] 3,000 unit PO DAILY@0700 Ondansetron [Zofran] 4 mg PO Q6H PRN PRN Reason: Nausea And Vomiting Metoprolol Succinate (ER) [Toprol XL] 50 mg PO HS Meclizine [Antivert] 25 mg PO QID PRN PRN Reason: Vertigo Magnesium Oxide 400 mg PO QAM Pantoprazole [Protonix] 40 mg PO BID Hydrocortisone [Cortef] 10 mg PO AC-LUNCH Hydrocortisone [Cortef] 15 mg PO AC-BRKFST Hydrocortisone [Cortef] 5 mg PO HS Aspirin 81 mg PO DAILY #0 Budesonide [Pulmicort Flexhaler] 1 puff INHALATION RT-BID PRN PRN Reason: Shortness Of Breath Glucagon Emergency Kit 1 mg IM ONCE PRN PRN Reason: Hypoglycemia Methocarbamol [Robaxin-750] 750 mg PO TID PRN PRN Reason: Muscle Spasm Ferrous Sulfate [Iron (65 MG Elemental)] 325 mg PO DAILY Vitamin B-Complex Drops 1 drop PO BID Thiamine [Vitamin B-1] 100 mg PO DAILY Folic Acid 0.4 mg PO DAILY Multivitamins, Thera Liquid [Theragran Liquid (formulary)] 30 ml PO DAILY L.acidoph,Paracasei, B.lactis [Probiotic] 2 cap PO BID Melatonin 5 mg PO HS PRN PRN Reason: Insomnia Cranberry 300mg 300 mg PO BID Potassium 99 mg PO DAILY Lisinopril [Zestril] 10 mg PO QAM Insulin Glargine [Lantus] 32 unit SQ HS Atorvastatin [Lipitor] 40 mg PO HS #30 tab Sertraline [Zoloft] 100 mg PO QAM Prochlorperazine [Compazine] 10 mg PO Q8H PRN PRN Reason: Nausea Promethazine HCl [Phenergan Syrup] 6.25 mg PO Q6H PRN PRN Reason: ALLERGIES Insulin Aspart [NovoLOG Flexpen] See Protocol SQ AC-TID Insulin Aspart [NovoLOG Flexpen] 22 units SQ AC-BID Insulin Aspart [NovoLOG Flexpen] 22 unit SQ AC-BRKFST Discontinued HYDROcodone/APAP 10-325MG [[place] 10-325] 1 - 2 tab PO Q4-6H PRN PRN Reason: Pain Discharge Medication List Cholecalciferol [Vitamin D3 (25 Mcg = 1000 Iu)] 3,000 unit PO DAILY@0700 12/01/14 [History] Ondansetron [Zofran] 4 mg PO Q6H PRN 10/12/15 [History] Metoprolol Succinate (ER) [Toprol XL] 50 mg PO HS 07/06/17 [History] Meclizine [Antivert] 25 mg PO QID PRN 11/26/17 [History] Magnesium Oxide 400 mg PO QAM 02/26/18 [History] Pantoprazole [Protonix] 40 mg PO BID 02/26/18 [History] Hydrocortisone [Cortef] 10 mg PO AC-LUNCH 05/18/18 [History] Hydrocortisone [Cortef] 15 mg PO AC-BRKFST 05/18/18 [History] Hydrocortisone [Cortef] 5 mg PO HS 06/26/18 [History] Aspirin 81 mg PO DAILY #0 07/02/18 [Rx] Budesonide [Pulmicort Flexhaler] 1 puff INHALATION RT-BID PRN 08/12/18 [History] Glucagon Emergency Kit 1 mg IM ONCE PRN 08/12/18 [History] Methocarbamol [Robaxin-750] 750 mg PO TID PRN 09/09/18 [History] Cranberry 300mg 300 mg PO BID 10/08/18 [History] Ferrous Sulfate [Iron (65 MG Elemental)] 325 mg PO DAILY 10/08/18 [History] Folic Acid 0.4 mg PO DAILY 10/08/18 [History] L.acidoph,Paracasei, B.lactis [Probiotic] 2 cap PO BID 10/08/18 [History] Melatonin 5 mg PO HS PRN 10/08/18 [History] Multivitamins, Thera Liquid [Theragran Liquid (formulary)] 30 ml PO DAILY 10/08/18 [History] Potassium 99 mg PO DAILY 10/08/18 [History] Thiamine [Vitamin B-1] 100 mg PO DAILY 10/08/18 [History] Vitamin B-Complex Drops 1 drop PO BID 10/08/18 [History] Lisinopril [Zestril] 10 mg PO QAM 11/08/18 [History] Insulin Glargine [Lantus] 32 unit SQ HS 11/09/18 [History] Atorvastatin [Lipitor] 40 mg PO HS #30 tab 11/16/18 [Rx] Sertraline [Zoloft] 100 mg PO QAM 11/30/18 [History] Insulin Aspart [NovoLOG Flexpen] 22 unit SQ AC-BRKFST 12/08/18 [History] Insulin Aspart [NovoLOG Flexpen] 22 units SQ AC-BID 12/08/18 [History] Insulin Aspart [NovoLOG Flexpen] See Protocol SQ AC-TID 12/08/18 [History] Prochlorperazine [Compazine] 10 mg PO Q8H PRN 12/08/18 [History] Promethazine HCl [Phenergan Syrup] 6.25 mg PO Q6H PRN 12/08/18 [History] Butalb/APAP/Caff 50-325-40Mg [Fioricet 50-325-40] 1 each PO Q4HR PRN 3 Days #10 tab 12/12/18 [Rx] Lidocaine 5% Patch [Lidoderm 5% Patch] 1 patch TOPICAL Q24H #15 patch 12/12/18 [Rx] Follow up Appointment(s)/Referral(s): Allyson Guardado MD [Primary Care Provider] - 1 Week Chalino Osman MD [STAFF PHYSICIAN] - 1 Week Activity/Diet/Wound Care/Special Instructions: Diabetic 1600 kcal per day Activity is limited until you see your doctor Discharge Disposition: HOME WITH HOME HEALTH SERVICES
[2018-12-13 07:43] LABS: Glucose,Whole Blood 151 mg/dL (75-99)
[2018-12-13 08:35] VITALS: BP 171/95; RESP 16; TEMP 98.4
[2018-12-13] MEDS: CIPROFLOXACIN 0.3% OPHTH OINT 3.5 GM TUBE LEFT EYE SCH (09:31)
[2018-12-13] MEDS: ERTAPENEM 1 GM in SODIUM CHLORIDE 0.9% 50 ML IVPB SCH (09:32)
[2018-12-13] MEDS: CHOLECALCIFEROL 1,000 UNIT TAB PO SCH (09:32)
[2018-12-13] MEDS: HEPARIN SODIUM,PORCINE 5,000 UNIT/ML 1 ML VIAL SQ SCH (09:32)
[2018-12-13] MEDS: INSULIN ASPART (NovoLOG) 100 UNIT/ML VIAL SQ SCH ×2 (09:32→09:33)
[2018-12-13] MEDS: PANTOPRAZOLE 40 MG TABLET PO SCH (09:33)
[2018-12-13] MEDS: MAGNESIUM OXIDE 400 MG TAB PO SCH (09:33)
[2018-12-13] MEDS: LEVOFLOXACIN 750 MG TAB PO SCH (09:33)
[2018-12-13] MEDS: ASPIRIN 81 MG PO SCH (09:33)
[2018-12-13] MEDS: THIAMINE 100 MG TAB PO SCH (09:33)
[2018-12-13] MEDS: SERTRALINE 100 MG TAB PO SCH (09:33)
[2018-12-13] MEDS: FERROUS SULFATE 325 MG TAB PO SCH (09:33)
[2018-12-13] MEDS: LISINOPRIL 10 MG TAB PO SCH (09:33)
--- NOTE | 2018-12-13 11:23 | PN ---
PROGRESS NOTE DATE OF SERVICE: 12/13/2018 REASON FOR FOLLOWUP: Urinary tract infection. INTERVAL HISTORY: The patient is currently afebrile. Patient has been breathing comfortably. Denies having any chest pain or cough. Patient denies any further nausea, no vomiting. The patient urinary symptom has improved and no diarrhea. PHYSICAL EXAMINATION: On examination, blood pressure is 171/95 with a pulse of 60, temperature 98.4. She is 97% on room air. General description is an elderly female, lying in bed in no distress. RESPIRATORY SYSTEM: Unlabored breathing, clear to auscultation anteriorly. HEART: S1, S2. Regular rate and rhythm. ABDOMEN: Soft, no tenderness. LABS: Repeat UA was mildly positive, however, significantly improved from initial UA. DIAGNOSTIC IMPRESSION AND PLAN: The patient admitted to the hospital with acute nausea, vomiting and urinary frequency with concern for urinary tract infection. Since patient has been treated with oral Levaquin and did show overall clinical improvement. Urine initial cultures did grow ESBL Escherichia coli, possible contamination as the patient did improve without getting treatment for the same. Plan at this time is to give a short course of oral Levaquin to finish course of therapy with close outpatient followup. No need for Midline or outpatient IV Invanz. MMODL / IJN: [id number] /
[2018-12-13] MEDS ORDERED: amLODIPine 5 MG TAB PO SCH (11:30)
== END 2018-12-13 11:55 | disposition home or self-care (01) | DRG 690 ==
LOC: EC 11:27 → 4SSUR 17:29 → OBSVTOIN 12-10 19:51
PROVIDERS: ADMIT Internal Medicine; ATTEND Internal Medicine
DX: N39.0 Urinary tract infection, site not specified (principal); E27.40 Unspecified adrenocortical insufficiency; Z16.12 Extended spectrum beta lactamase (ESBL) resistance; B96.20 Unspecified Escherichia coli [E. coli] as the cause of diseases classified elsewhere; E11.65 Type 2 diabetes mellitus with hyperglycemia; E21.5 Disorder of parathyroid gland, unspecified; E78.5 Hyperlipidemia, unspecified; G43.909 Migraine, unspecified, not intractable, without status migrainosus; G47.33 Obstructive sleep apnea (adult) (pediatric); G89.4 Chronic pain syndrome; H10.9 Unspecified conjunctivitis; I10 Essential (primary) hypertension; J44.9 Chronic obstructive pulmonary disease, unspecified; M15.9 Polyosteoarthritis, unspecified; M50.30 Other cervical disc degeneration, unspecified cervical region; M79.7 Fibromyalgia; Z16.24 Resistance to multiple antibiotics; Z79.4 Long term (current) use of insulin; Z79.82 Long term (current) use of aspirin; Z79.899 Other long term (current) drug therapy; Z79.52 Long term (current) use of systemic steroids; Z80.49 Family history of malignant neoplasm of other genital organs; Z82.49 Family history of ischemic heart disease and other diseases of the circulatory system; Z83.3 Family history of diabetes mellitus; Z86.14 Personal history of Methicillin resistant Staphylococcus aureus infection; Z86.718 Personal history of other venous thrombosis and embolism; Z86.73 Personal history of transient ischemic attack (TIA), and cerebral infarction without residual deficits; Z87.442 Personal history of urinary calculi; Z87.891 Personal history of nicotine dependence; Z90.710 Acquired absence of both cervix and uterus; Z87.440 Personal history of urinary (tract) infections; Z87.01 Personal history of pneumonia (recurrent); Z98.42 Cataract extraction status, left eye; Z98.41 Cataract extraction status, right eye; Z89.421 Acquired absence of other right toe(s); Z83.6 Family history of other diseases of the respiratory system; R27.8 Other lack of coordination; R26.89 Other abnormalities of gait and mobility; Z98.1 Arthrodesis status; M54.5 Low back pain; Z99.89 Dependence on other enabling machines and devices; Z88.1 Allergy status to other antibiotic agents; Z88.5 Allergy status to narcotic agent; Z88.0 Allergy status to penicillin; Z88.2 Allergy status to sulfonamides; Z88.8 Allergy status to other drugs, medicaments and biological substances
CPT/HCPCS: 36415; 70450; 71046; 80048; 80053; 81001; 84484; 85025; 87086; 93005; 93880; 96361; 96365; 96375; 99285

== ENCOUNTER 2018-12-26 09:59 | Inpatient (IN) | payer MEDICARE, BC ==
[2018-12-26] MEDS ORDERED: SODIUM CHLORIDE 0.9% 1,000 ML IV STA (10:13)
[2018-12-26] MEDS ORDERED: ONDANSETRON 4 MG/2 ML VIAL IVP STA (10:13)
[2018-12-26] MEDS ORDERED: ACETAMINOPHEN TAB 500 MG TAB PO STA (10:13)
[2018-12-26] MEDS ORDERED: HYDROmorphone 0.5 MG/0.5 ML SYRINGE IVP STA (10:17)
--- NOTE | 2018-12-26 10:27 | ED ---
Nausea/Vomiting/Diarrhea HPI <All Lehman - Last Filed: 12/26/18 14:19> - General Source: patient, EMS Mode of arrival: EMS <Allyson Sloan - Last Filed: 12/26/18 14:36> - General Chief complaint: Nausea/Vomiting/Diarrhea Stated complaint: NAUSEA, VOMITING Time Seen by Provider: 12/26/18 10:02 - History of Present Illness Initial comments: Patient is a 68-year-old female who presents emergency Department via ambulance with complaints of nausea, vomiting, diarrhea for 2 days. Patient has past medical history of diabetes type 2 and occipital neuralgia. Patient states she has a recent history of E. coli. Patient states she was unable to walk around the last 2 days do to the n/v/d so she is also having an increase in neck and back pain which she normally has. Patient denies any falls or trauma. Patient admits to fever and burning with urination. Patient denies chest pain, abdominal pain, shortness of breath. No other complaints at this time (Allyson Sloan) - Related Data Home Medications Medication Instructions Recorded Confirmed Cholecalciferol [Vitamin D3 (25 3,000 unit PO DAILY@0700 12/01/14 12/08/18 Mcg = 1000 Iu)] Ondansetron [Zofran] 4 mg PO Q6H PRN 10/12/15 12/08/18 Metoprolol Succinate (ER) [Toprol 50 mg PO HS 07/06/17 12/08/18 XL] Meclizine [Antivert] 25 mg PO QID PRN 11/26/17 12/08/18 Magnesium Oxide 400 mg PO QAM 02/26/18 12/08/18 Pantoprazole [Protonix] 40 mg PO BID 02/26/18 12/08/18 Hydrocortisone [Cortef] 10 mg PO AC-LUNCH 05/18/18 12/08/18 Hydrocortisone [Cortef] 15 mg PO AC-BRKFST 05/18/18 12/08/18 Hydrocortisone [Cortef] 5 mg PO HS 06/26/18 12/08/18 Budesonide [Pulmicort Flexhaler] 1 puff INHALATION RT-BID PRN 08/12/18 12/08/18 Glucagon Emergency Kit 1 mg IM ONCE PRN 08/12/18 12/08/18 Methocarbamol [Robaxin-750] 750 mg PO TID PRN 09/09/18 12/08/18 Cranberry 300mg 300 mg PO BID 10/08/18 12/08/18 Ferrous Sulfate [Iron (65 MG 325 mg PO DAILY 10/08/18 12/08/18 Elemental)] Folic Acid 0.4 mg PO DAILY 10/08/18 12/08/18 L.acidoph,Paracasei, B.lactis 2 cap PO BID 10/08/18 12/08/18 [Probiotic] Melatonin 5 mg PO HS PRN 10/08/18 12/08/18 Multivitamins, Thera Liquid 30 ml PO DAILY 10/08/18 12/08/18 [Theragran Liquid (formulary)] Potassium 99 mg PO DAILY 10/08/18 12/08/18 Thiamine [Vitamin B-1] 100 mg PO DAILY 10/08/18 12/08/18 Vitamin B-Complex Drops 1 drop PO BID 10/08/18 12/08/18 Lisinopril [Zestril] 10 mg PO QAM 11/08/18 12/08/18 Insulin Glargine [Lantus] 32 unit SQ HS 11/09/18 12/08/18 Sertraline [Zoloft] 100 mg PO QAM 11/30/18 12/08/18 Insulin Aspart [NovoLOG Flexpen] 22 unit SQ AC-BRKFST 12/08/18 12/09/18 Insulin Aspart [NovoLOG Flexpen] 22 units SQ AC-BID 12/08/18 12/09/18 Insulin Aspart [NovoLOG Flexpen] See Protocol SQ AC-TID 12/08/18 12/08/18 Prochlorperazine [Compazine] 10 mg PO Q8H PRN 12/08/18 12/08/18 Promethazine HCl [Phenergan Syrup] 6.25 mg PO Q6H PRN 12/08/18 12/08/18 Previous Rx's Medication Instructions Recorded Aspirin 81 mg PO DAILY #0 07/02/18 Atorvastatin [Lipitor] 40 mg PO HS #30 tab 11/16/18 Butalb/APAP/Caff 50-325-40Mg 1 each PO Q4HR PRN 3 Days #10 tab 12/12/18 [Fioricet 50-325-40] Lidocaine 5% Patch [Lidoderm 5% 1 patch TOPICAL Q24H #15 patch 12/12/18 Patch] Levofloxacin [Levaquin] 500 mg PO DAILY 3 Days #3 tab 12/13/18 amLODIPine [Norvasc] 5 mg PO DAILY #30 tab 12/13/18 Allergies Allergy/AdvReac Type Severity Reaction Status Date / Time butorphanol tartrate Allergy BLISTERS Verified 12/08/18 12:24 [From Stadol] IN MOUTH ceftriaxone [From Rocephin] Allergy Unknown Verified 12/08/18 12:24 clarithromycin [From Biaxin] Allergy Rash/Hives Verified 12/08/18 12:24 codeine Allergy Rash/Hives Verified 12/08/18 12:24 ergotamine tartrate Allergy Unknown Verified 12/08/18 12:24 [From Cafergot] erythromycin base Allergy RASH, GI Verified 12/08/18 12:24 [From E-Mycin] SYMPTOMS ketorolac tromethamine Allergy Rash/Hives Verified 12/08/18 12:24 [From Toradol] liraglutide [From Victoza] Allergy Rash/Hives Verified 12/08/18 12:24 morphine Allergy Rash/Hives Verified 12/08/18 12:24 Penicillins Allergy Rash/Hives Verified 12/08/18 12:24 pentazocine lactate Allergy SEVERE Verified 12/08/18 12:24 [From Talwin] BLISTERS IN MOUTH pregabalin [From Lyrica] Allergy Rash/Hives Verified 12/08/18 12:24 propoxyphene HCl Allergy Rash/Hives Verified 12/08/18 12:24 [From Darvon] Sulfa (Sulfonamide Allergy Rash/Hives Verified 12/08/18 12:24 Antibiotics) tramadol Allergy Unknown Verified 12/08/18 12:24 monosodium glutamate [MSG] AdvReac Nausea & Verified 12/08/18 12:24 Vomiting nalbuphine HCl [From Nubain] AdvReac Nausea & Verified 12/08/18 12:24 Vomiting Review of Systems ROS Other: All systems not noted in ROS Statement are negative. <All Lehman - Last Filed: 12/26/18 14:19> ROS Other: All systems not noted in ROS Statement are negative. <Allyson Sloan - Last Filed: 12/26/18 14:36> ROS Statement: Those systems with pertinent positive or pertinent negative responses have been documented in the HPI. 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,DVT R calf in 1976, cardiac murmur.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, MRSA Date of last positivie culture/infection: 12/08/18 ESBL/ 2010 MRSA MDRO Source:: ESBL URINE/ MRSA TOE Past Surgical History: Appendectomy, Back Surgery, Bladder Surgery, Breast S urgery, Cholecystectomy, Heart Catheterization, Hysterectomy, Orthopedic Surgery, Tonsillectomy Additional Past Surgical History / Comment(s): Lumbar fusions, bladder suspensi on, occipital nerve blocks, 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 Past Anesthesia/Blood Transfusion Reactions: Motion Sickness Additional Past Anesthesia/Blood Transfusion Reaction / Comment(s): never recieved blood Past Psychological History: No Psychological Hx Reported Smoking Status: Never smoker Past Alcohol Use History: Occasional Past Drug Use History: None Reported - Past Family History Father Family Medical History: Coronary Artery Disease (CAD), CVA/TIA, Diabetes Mellitus, Myocardial Infarction (GA), Pneumonia Additional Family Medical History / Comment(s): ather at the age of 78yrs from GA and pneumonia. Mother Family Medical History: Cancer Additional Family Medical History / Comment(s): Mother had uterine cancer. She is 96yrs old. <Allyson Sloan - Last Filed: 12/26/18 14:36> General Exam <Allyson Sloan - Last Filed: 12/26/18 14:36> - General Exam Comments Initial Comments: GENERAL: In no acute distress. Appears fatigued and flushed. HEAD: Atraumatic, normocephalic. EYES: Pupils equal round and reactive to light, extraocular movements intact, sclera anicteric, conjunctiva are normal. Bilateral yellow-green discharge ENT: TMs normal, nares patent, oropharynx clear without exudates. Moist mucous membranes. NECK: Normal range of motion, supple without lymphadenopathy or JVD. LUNGS: Breath sounds clear to auscultation bilaterally and equal. No wheezes rales or rhonchi. HEART: Regular rate and rhythm without murmurs, rubs or gallops. ABDOMEN: Soft, nontender, normoactive bowel sounds. No guarding, no rebound. No masses appreciated. : Deferred EXTREMITIES: Normal range of motion, no pitting or edema. No clubbing or cyanosis. NEUROLOGICAL: Cranial nerves II through XII grossly intact. Normal speech. PSYCH: Normal mood, normal affect. SKIN: Warm, Dry, normal turgor, no rashes or lesions noted. (Allyson Sloan) Course Vital Signs 12/26/18 12/26/18 12/26/18 10:02 13:15 14:22 Temperature 103.7 F H 101.8 F H 101.0 F H Pulse Rate 111 H 111 H 114 H Respiratory 17 17 18 Rate Blood Pressure 162/85 105/74 92/60 O2 Sat by Pulse 94 L 96 92 L Oximetry Medical Decision Making - Lab Data Result diagrams: 12/26/18 11:38 12/26/18 11:38 <All Lehman - Last Filed: 12/26/18 14:19> - Lab Data Result diagrams: 12/26/18 11:38 12/26/18 11:38 <Allyson Sloan - Last Filed: 12/26/18 14:36> - Medical Decision Making Patient reevaluated by myself, Dr. Lehman. Patient resting comfortably in bed. Patient updated on results and plan. Case was discussed with Dr. hand who is familiar with this patient and will admit, covering for Dr. Guardado. IV antibiotics started. Patient is on Cortef and this will be continued IV. (All Lehman) Patient is a 68-year-old female complains of nausea, vomiting, diarrhea and fever 2 days. Patient has history of positive E. coli infection. Patient is febrile and tachycardic on arrival. CBC, CMP are within normal limits. Lactic acid is 1.1. Blood cultures were obtained. UA shows significant UTI with moderate blood, nitrate positive, greater than 182 WBC. Case discussed with Dr. Lehman. Given patient's temp and tachycardia patient will be admitted. Patient was started on Zosyn and given 100mg cortef for adrenal insufficiency. Patient is in agreement with this plan. (Allyson Sloan) - Lab Data Lab Results 12/26/18 12/26/18 12/26/18 Range/Units 11:38 11:38 11:38 WBC 9.3 (3.8-10.6) k/uL RBC 4.43 (3.80-5.40) m/uL Hgb 12.5 (11.4-16.0) gm/dL Hct 37.8 (34.0-46.0) % MCV 85.1 (80.0-100.0) fL MCH 28.1 (25.0-35.0) pg MCHC 33.0 (31.0-37.0) g/dL RDW 14.4 (11.5-15.5) % Plt Count 161 (150-450) k/uL Neutrophils % 78 % Lymphocytes % 12 % Monocytes % 5 % Eosinophils % 3 % Basophils % 0 % Neutrophils # 7.3 (1.3-7.7) k/uL Lymphocytes # 1.2 (1.0-4.8) k/uL Monocytes # 0.5 (0-1.0) k/uL Eosinophils # 0.3 (0-0.7) k/uL Basophils # 0.0 (0-0.2) k/uL Sodium 141 (137-145) mmol/L Potassium 4.0 (3.5-5.1) mmol/L Chloride 101 (98-107) mmol/L Carbon Dioxide 30 (22-30) mmol/L Anion Gap 10 mmol/L BUN 16 (7-17) mg/dL Creatinine 0.59 (0.52-1.04) mg/dL Est GFR (CKD-EPI)AfAm >90 (>60 ml/min/1.73 sqM) Est GFR (CKD-EPI)NonAf >90 (>60 ml/min/1.73 sqM) Glucose 174 H (74-99) mg/dL Plasma Lactic Acid Sudhir (0.7-2.0) mmol/L Calcium 10.1 (8.4-10.2) mg/dL Total Bilirubin 1.6 H (0.2-1.3) mg/dL AST 14 (14-36) U/L ALT 18 (9-52) U/L Alkaline Phosphatase 85 (38-126) U/L Total Protein 6.3 (6.3-8.2) g/dL Albumin 3.9 (3.5-5.0) g/dL Urine Color Yellow Urine Appearance Cloudy H (Clear) Urine pH 5.5 (5.0-8.0) Ur Specific [place] 1.013 (1.001-1.035) Urine Protein 1+ H (Negative) Urine Glucose (UA) Negative (Negative) Urine Ketones 1+ H (Negative) Urine Blood Moderate H (Negative) Urine Nitrite Positive H (Negative) Urine Bilirubin Negative (Negative) Urine Urobilinogen <2.0 (<2.0) mg/dL Ur Leukocyte Esterase Large H (Negative) Urine RBC >182 H (0-5) /hpf Urine WBC >182 H (0-5) /hpf Urine WBC Clumps Few H (None) /hpf Ur Squamous Epith Cells <1 (0-4) /hpf Urine Bacteria Many H (None) /hpf Urine Mucus Occasional H (None) /hpf 12/26/18 Range/Units 12:21 WBC (3.8-10.6) k/uL RBC (3.80-5.40) m/uL Hgb (11.4-16.0) gm/dL Hct (34.0-46.0) % MCV (80.0-100.0) fL MCH (25.0-35.0) pg MCHC (31.0-37.0) g/dL RDW (11.5-15.5) % Plt Count (150-450) k/uL Neutrophils % % Lymphocytes % % Monocytes % % Eosinophils % % Basophils % % Neutrophils # (1.3-7.7) k/uL Lymphocytes # (1.0-4.8) k/uL Monocytes # (0-1.0) k/uL Eosinophils # (0-0.7) k/uL Basophils # (0-0.2) k/uL Sodium (137-145) mmol/L Potassium (3.5-5.1) mmol/L Chloride (98-107) mmol/L Carbon Dioxide (22-30) mmol/L Anion Gap mmol/L BUN (7-17) mg/dL Creatinine (0.52-1.04) mg/dL Est GFR (CKD-EPI)AfAm (>60 ml/min/1.73 sqM) Est GFR (CKD-EPI)NonAf (>60 ml/min/1.73 sqM) Glucose (74-99) mg/dL Plasma Lactic Acid Sudhir 1.1 (0.7-2.0) mmol/L Calcium (8.4-10.2) mg/dL Total Bilirubin (0.2-1.3) mg/dL AST (14-36) U/L ALT (9-52) U/L Alkaline Phosphatase (38-126) U/L Total Protein (6.3-8.2) g/dL Albumin (3.5-5.0) g/dL Urine Color Urine Appearance (Clear) Urine pH (5.0-8.0) Ur Specific [place] (1.001-1.035) Urine Protein (Negative) Urine Glucose (UA) (Negative) Urine Ketones (Negative) Urine Blood (Negative) Urine Nitrite (Negative) Urine Bilirubin (Negative) Urine Urobilinogen (<2.0) mg/dL Ur Leukocyte Esterase (Negative) Urine RBC (0-5) /hpf Urine WBC (0-5) /hpf Urine WBC Clumps (None) /hpf Ur Squamous Epith Cells (0-4) /hpf Urine Bacteria (None) /hpf Urine Mucus (None) /hpf Disposition <All Lehman - Last Filed: 12/26/18 14:19> Decision Date: 12/26/18 Decision Time: 14:18 <Allyson Sloan - Last Filed: 12/26/18 14:36> Clinical Impression: UTI (urinary tract infection), Nausea & vomiting Disposition: ADMITTED IP TO THIS [facility] Condition: Stable
[2018-12-26] MEDS ORDERED: ONDANSETRON ODT 4 MG TAB PO STA (11:45)
[2018-12-26] MEDS ORDERED: HYDROmorphone 0.5 MG/0.5 ML SYRINGE IM STA (11:45)
[2018-12-26 11:50] LABS: Basophils % (A) 0 %; Eosinophils # (A) 0.3 k/uL (0-0.7); Eosinophils % (A) 3 %; HCT 37.8 % (34.0-46.0); HGB 12.5 gm/dL (11.4-16.0); Lymphocytes # (A) 1.2 k/uL (1.0-4.8); Lymphocytes % (A) 12 %; MCH 28.1 pg (25.0-35.0); MCV 85.1 fL (80.0-100.0); Mean Platelet Volume 7.7; Monocytes # (A) 0.5 k/uL (0-1.0); Monocytes % (A) 5 %; Neutrophils # (A) 7.3 k/uL (1.3-7.7); Neutrophils % (A) 78 %; Platelet Count 161 k/uL (150-450); RBC 4.43 m/uL (3.80-5.40); RDW 14.4 % (11.5-15.5); WBC 9.3 k/uL (3.8-10.6)
[2018-12-26 12:01] LABS: ALT 18 U/L (9-52); AST 14 U/L (14-36); African American GFR (CKD) >90 (>60 ml/min/1.73 sqM); Albumin 3.9 g/dL (3.5-5.0); Alkaline Phosphatase 85 U/L (38-126); Anion Gap 10 mmol/L; Blood Urea Nitrogen 16 mg/dL (7-17); Calcium 10.1 mg/dL (8.4-10.2); Carbon Dioxide 30 mmol/L (22-30); Chloride 101 mmol/L (98-107); Glucose 174 mg/dL (74-99); Sodium 141 mmol/L (137-145); Total Bilirubin 1.6 mg/dL (0.2-1.3); Total Protein 6.3 g/dL (6.3-8.2)
[2018-12-26 12:13] LABS: Appearance,Urine Cloudy (Clear); Bacteria,Urine Many /hpf; Bilirubin,Urine Negative (Negative); Blood,Urine Moderate (Negative); Color,Urine Yellow; Glucose,Urine (UA) Negative (Negative); Ketones,Urine 1+ (Negative); Leukocyte Esterase,Urine Large (Negative); Mucus,Urine Occasional /hpf; Nitrite,Urine Positive (Negative); PH, Urine 5.5 (5.0-8.0); Protein,Urine 1+ (Negative); RBC,Urine >182 /hpf (0-5); Specific Gravity,Urine 1.013 (1.001-1.035); Squamous Epithelial Cell,Urine <1 /hpf (0-4); Urobilinogen,Urine <2.0 mg/dL (<2.0)
[2018-12-26] MEDS ORDERED: PIPERACILLIN-TAZOBACTAM 3.375 GM in SODIUM CHLORIDE 0.9% 100 ML IVPB STA (13:46)
[2018-12-26] MEDS ORDERED: NALOXONE 0.4 MG/ML 1 ML VIAL IV PRN (14:02)
[2018-12-26] MEDS ORDERED: HYDROCORTISONE SUCCINATE 100 MG/2 ML VIAL IV STA (14:16)
[2018-12-26] MEDS: SODIUM CHLORIDE 0.9% 1,000 ML IV SCH (14:22)
[2018-12-26] MEDS: HYDROmorphone 0.5 MG/0.5 ML SYRINGE IVP PRN ×2 (14:35→15:32)
[2018-12-26] MEDS ORDERED: MECLIZINE 25 MG TAB PO PRN (16:01)
[2018-12-26] MEDS ORDERED: GLUCAGON 1 MG/ML VIAL IM PRN (16:01)
[2018-12-26] MEDS ORDERED: METHOCARBAMOL 750 MG TAB PO PRN (16:01)
[2018-12-26] MEDS ORDERED: FLUTICASONE 110 MCG INHALER INHALATION PRN (16:01)
[2018-12-26 17:07] LABS: Glucose,Whole Blood 236 mg/dL (75-99)
[2018-12-26] MEDS: PANTOPRAZOLE 40 MG TABLET PO SCH (17:39)
[2018-12-26] MEDS: INSULIN ASPART (NovoLOG) 100 UNIT/ML VIAL SQ SCH (17:41)
[2018-12-26 20:18] LABS: Glucose,Whole Blood 288 mg/dL (75-99)
[2018-12-26] MEDS: ACETAMINOPHEN TAB 325 MG TAB PO PRN (20:23)
[2018-12-26] MEDS: HYDROCORTISONE 10 MG TAB PO SCH (20:49)
[2018-12-26] MEDS: LACTOBACILLUS ACIDOPH & BULGAR 1 EACH PACKET PO SCH (20:49)
[2018-12-26] MEDS ORDERED: CRANBERRY 300 MG PO SCH (21:00)
[2018-12-26] MEDS ORDERED: VITAMIN B COMPLEX PO SCH (21:00)
[2018-12-26] MEDS: ATORVASTATIN 40 MG TAB PO SCH (21:09)
[2018-12-26] MEDS: METOPROLOL SUCCINATE (ER) 50 MG TAB.ER.24H PO SCH (21:09)
[2018-12-26] MEDS: INSULIN DETEMIR (LEVEMIR) 100 UNIT/ML SYR SQ SCH (21:09)
[2018-12-27] MEDS: HYDROmorphone 0.5 MG/0.5 ML SYRINGE IVP PRN ×5 (02:25→19:49)
[2018-12-27] MEDS: ACETAMINOPHEN TAB 325 MG TAB PO PRN (02:28)
[2018-12-27] MEDS: CHOLECALCIFEROL 1,000 UNIT TAB PO SCH (06:08)
[2018-12-27 06:34] LABS: Glucose,Whole Blood 89 mg/dL (75-99)
[2018-12-27] MEDS: INSULIN ASPART (NovoLOG) 100 UNIT/ML VIAL SQ SCH ×3 (07:38→17:43)
[2018-12-27] MEDS: PANTOPRAZOLE 40 MG TABLET PO SCH ×2 (07:39→17:43)
[2018-12-27] MEDS: POTASSIUM CHLORIDE ER 10 MEQ TAB.ER.PRT PO SCH (07:39)
[2018-12-27] MEDS: SERTRALINE 100 MG TAB PO SCH (07:39)
[2018-12-27] MEDS: HYDROCORTISONE 10 MG TAB PO SCH ×3 (07:39→19:59)
[2018-12-27] MEDS: MAGNESIUM OXIDE 400 MG TAB PO SCH (07:40)
[2018-12-27] MEDS: MULTIVITAMINS, THERA 1 EACH TAB PO SCH (07:40)
[2018-12-27] MEDS: LACTOBACILLUS ACIDOPH & BULGAR 1 EACH PACKET PO SCH ×2 (07:40→19:58)
[2018-12-27] MEDS: FOLIC ACID 1 MG TAB PO SCH (07:40)
[2018-12-27] MEDS: ASPIRIN 81 MG PO SCH (07:40)
[2018-12-27] MEDS: THIAMINE 100 MG TAB PO SCH (07:40)
[2018-12-27] MEDS: FERROUS SULFATE 325 MG TAB PO SCH (07:40)
[2018-12-27] MEDS: ONDANSETRON 4 MG/2 ML VIAL IVP PRN (07:46)
[2018-12-27] MEDS: LISINOPRIL 10 MG TAB PO SCH (07:57)
[2018-12-27] MEDS: amLODIPine 5 MG TAB PO SCH (07:57)
[2018-12-27] MEDS: ERTAPENEM 1 GM in SODIUM CHLORIDE 0.9% 50 ML IVPB SCH (09:12)
[2018-12-27] MEDS: SODIUM CHLORIDE 0.9% 1,000 ML IV SCH (09:14)
[2018-12-27 11:54] LABS: Glucose,Whole Blood 142 mg/dL (75-99)
[2018-12-27 14:08] VITALS: BMI 28.3
--- NOTE | 2018-12-27 14:53 | P.HPIM ---
History of Present Illness H&P Date: 12/26/18 Chief Complaint: Nausea vomiting and diarrhea. Fever. Patient is a 63-year-old female with a known history of adrenal insufficiency currently on hydrocortisone at home, occipital neuralgia, COPD, diabetes type 2, fibromyalgia, hypertension, osteoarthritis and obstructive sleep apnea with recurrent urinary tract infections came to ER by EMS with the complaints of nausea vomiting and diarrhea for the past 2 days. Patient states she was unable to walk around the last 2 days do to the n/v/d so she is also having an increase in neck and back pain which she normally has. Patient is also febrile and tachycardic. Otherwise patient denied any chest pain or shortness of breath. No abdominal pain. Patient does have increased frequency of urination for the past few days. Patient was recently admitted to the hospital due to urinary tract infection and urine cultures growing ESBL., Which was thought to be colonization and patient did improve without antibiotics. Patient otherwise denied any complaints of cough or sputum production. T-max 103.7 and tachycardic. Patient was given a dose of Zosyn in the ER. Urinalysis showed cloudy, nitrite positive and large leukocyte esterase with WBC count of greater than 182 Patient is ALLERGIC to multiple medications including antibiotics. Review of Systems Constitutional: Patient does have fever and chills and generalized pains. No generalized weakness or weight loss. Abdomen: Nausea vomiting and diarrhea. No abdominal pain.. Cardiovascular: Patient denies any chest pain or short of breath no palpitations. Respiratory: patient denied any cough is from production. No shortness of breath Neurologic: Patient denied any numbness or tingling headache. Musculoskeletal: Patient denies any complaints of joint swelling or deformity. Skin: Negative Psychiatric: Negative Endocrine: No heat or cold intolerance. No recent weight gain. Genitourinary: No dysuria or hematuria. All other 14 point ROS negative except the above Past Medical History Past Medical History: COPD, Diabetes Mellitus, Deep Vein Thrombosis (DVT), Fibromyalgia, Hyperlipidemia, Hypertension, Osteoarthritis (OA), Pneumonia, Renal Disease, Sleep Apnea/CPAP/BIPAP, Vascular Disorder Additional Past Medical History / Comment(s): Pt recently admitted to [facility] on 12/10/18 with acute [id number], L eye conjunctivitis, gait instability. 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 Past Anesthesia/Blood Transfusion Reactions: Motion Sickness Additional Past Anesthesia/Blood Transfusion Reaction / Comment(s): never recieved blood Smoking Status: Never smoker - Past Family History Father Family Medical History: Coronary Artery Disease (CAD), CVA/TIA, Diabetes Mellitus, Myocardial Infarction ([place]), Pneumonia Additional Family Medical History / Comment(s): Father at the age of 78yrs from AL and pneumonia. Mother Family Medical History: Cancer Additional Family Medical History / Comment(s): Mother had uterine cancer. She recently at the age of 96yrs old. Medications and Allergies Home Medications Medication Instructions Recorded Confirmed Type Cholecalciferol [Vitamin D3 (25 3,000 unit PO DAILY@0700 12/01/14 12/26/18 Hist ory Mcg = 1000 Iu)] Ondansetron [Zofran] 4 mg PO Q6H PRN 10/12/15 12/26/18 History Metoprolol Succinate (ER) [Toprol 50 mg PO HS 07/06/17 12/26/18 History XL] Meclizine [Antivert] 25 mg PO QID PRN 11/26/17 12/26/18 History Magnesium Oxide 400 mg PO QAM 02/26/18 12/26/18 History Pantoprazole [Protonix] 40 mg PO BID 02/26/18 12/26/18 History Hydrocortisone [Cortef] 10 mg PO AC-LUNCH 05/18/18 12/26/18 History Hydrocortisone [Cortef] 15 mg PO AC-BRKFST 05/18/18 12/26/18 History Hydrocortisone [Cortef] 5 mg PO HS 06/26/18 12/26/18 History Aspirin 81 mg PO DAILY #0 07/02/18 12/26/18 Rx Budesonide [Pulmicort Flexhaler] 1 puff INHALATION RT-BID PRN 08/12/18 12/26/18 History Glucagon Emergency Kit 1 mg IM ONCE PRN 08/12/18 12/26/18 History Methocarbamol [Robaxin-750] 750 mg PO TID PRN 09/09/18 12/26/18 History Cranberry 300mg 300 mg PO BID 10/08/18 12/26/18 History Ferrous Sulfate [Iron (65 MG 325 mg PO DAILY 10/08/18 12/26/18 History Elemental)] Folic Acid 0.4 mg PO DAILY 10/08/18 12/26/18 History L.acidoph,Paracasei, B.lactis 2 cap PO BID 10/08/18 12/26/18 History [Probiotic] Melatonin 5 mg PO HS PRN 10/08/18 12/26/18 History Multivitamins, Thera Liquid 30 ml PO DAILY 10/08/18 12/26/18 History [Theragran Liquid (formulary)] Potassium 99 mg PO DAILY 10/08/18 12/26/18 History Thiamine [Vitamin B-1] 100 mg PO DAILY 10/08/18 12/26/18 History Vitamin B-Complex Drops 1 drop PO BID 10/08/18 12/26/18 History Lisinopril [Zestril] 10 mg PO QAM 11/08/18 12/26/18 History Insulin Glargine [Lantus] 32 unit SQ HS 11/09/18 12/26/18 History Atorvastatin [Lipitor] 40 mg PO HS #30 tab 11/16/18 12/26/18 Rx Sertraline [Zoloft] 100 mg PO QAM 11/30/18 12/26/18 History Insulin Aspart [NovoLOG Flexpen] 20 unit SQ AC-BRKFST 12/08/18 12/26/18 History Insulin Aspart [NovoLOG Flexpen] 21 units SQ AC-LUNCH 12/08/18 12/26/18 History Insulin Aspart [NovoLOG Flexpen] 21 units SQ AC-SUPPER 12/08/18 12/26/18 History Prochlorperazine [Compazine] 10 mg PO Q8H PRN 12/08/18 12/26/18 History Promethazine HCl [Phenergan Syrup] 6.25 mg PO Q6H PRN 12/08/18 12/26/18 History amLODIPine [Norvasc] 5 mg PO DAILY #30 tab 12/13/18 12/26/18 Rx HYDROcodone/APAP 10-325MG [[place] 1 - 2 tab PO Q4-6H PRN 12/26/18 12/26/18 History 10-325] Allergies Allergy/AdvReac Type Severity Reaction Status Date / Time butorphanol tartrate Allergy BLISTERS Verified 12/26/18 14:52 [From Stadol] IN MOUTH ceftriaxone [From Rocephin] Allergy Unknown Verified 12/26/18 14:52 clarithromycin [From Biaxin] Allergy Rash/Hives Verified 12/26/18 14:52 codeine Allergy Rash/Hives Verified 12/26/18 14:52 ergotamine tartrate Allergy Unknown Verified 12/26/18 14:52 [From Cafergot] erythromycin base Allergy RASH, GI Verified 12/26/18 14:52 [From E-Mycin] SYMPTOMS ketorolac tromethamine Allergy Rash/Hives Verified 12/26/18 14:52 [From Toradol] liraglutide [From Victoza] Allergy Rash/Hives Verified 12/26/18 14:52 morphine Allergy Rash/Hives Verified 12/26/18 14:52 Penicillins Allergy Rash/Hives Verified 12/26/18 14:52 pentazocine lactate Allergy SEVERE Verified 12/26/18 14:52 [From Talwin] BLISTERS IN MOUTH pregabalin [From Lyrica] Allergy Rash/Hives Verified 12/26/18 14:52 propoxyphene HCl Allergy Rash/Hives Verified 12/26/18 14:52 [From Darvon] Sulfa (Sulfonamide Allergy Rash/Hives Verified 12/26/18 14:52 Antibiotics) tramadol Allergy Unknown Verified 12/26/18 14:52 monosodium glutamate [MSG] AdvReac Nausea & Verified 12/26/18 14:52 Vomiting nalbuphine HCl [From Nubain] AdvReac Nausea & Verified 12/26/18 14:52 Vomiting Physical Exam Vitals: Vital Signs Temp Pulse Pulse Resp BP BP Pulse Ox 12/26/18 15:24 98.6 F 115 H 20 109/70 97 12/26/18 14:38 107 H 104/65 96 12/26/18 14:22 101.0 F H 114 H 18 92/60 92 L 12/26/18 13:15 101.8 F H 111 H 17 105/74 96 12/26/18 10:02 103.7 F H 111 H 17 162/85 94 L Intake and Output 12/26/18 12/26/18 12/26/18 06:59 14:59 22:59 Other: Weight 65.771 kg PHYSICAL EXAMINATION: Patient is lying in the bed comfortably, no acute distress, awake alert and oriented.. HEENT: Normocephalic. Neck is supple. Pupils reactive. Nostrils clear. Oral cavity is moist. Ears reveal no drainage. Neck reveals no JVD, carotid bruits, or thyromegaly. CHEST EXAMINATION: Trachea is central. Symmetrical expansion. Lung hinds clear to auscultation and percussion. CARDIAC: Normal S1, S2 with no gallops. No murmurs ABDOMEN: Soft. Bowel sounds normal. No organomegaly. No abdominal bruits. Extremities: reveal no edema. No clubbing or cyanosis Neurologically awake, alert, oriented x3 with well-coordinated movements. No focal deficits noted Skin: No rash or skin lesions. Psychiatric: Coperative. Nonsuicidal Musculoskeletal: No joint swelling or deformity. Normal range of motion. Results CBC & Chem 7: 12/26/18 11:38 12/26/18 11:38 Labs: Abnormal Lab Results - Last 24 Hours (Table) 12/26/18 12/26/18 Range/Units 11:38 11:38 Glucose 174 H (74-99) mg/dL Total Bilirubin 1.6 H (0.2-1.3) mg/dL Urine Appearance Cloudy H (Clear) Urine Protein 1+ H (Negative) Urine Ketones 1+ H (Negative) Urine Blood Moderate H (Negative) Urine Nitrite Positive H (Negative) Ur Leukocyte Esterase Large H (Negative) Urine RBC >182 H (0-5) /hpf Urine WBC >182 H (0-5) /hpf Urine WBC Clumps Few H (None) /hpf Urine Bacteria Many H (None) /hpf Urine Mucus Occasional H (None) /hpf Microbiology - Last 24 Hours (Table) 12/26/18 11:38 Urine Culture - Preliminary Urine,Voided Thrombosis Risk Factor Assmnt - DVT/VTE Prophylaxis DVT/VTE Prophylaxis: Pharmacologic Prophylaxis ordered - Choose All That Apply Any of the Below Risk Factors Present?: Yes Each Factor Represents 1 point: Obesity (BMI >25) Other Risk Factors: Yes Each Risk Factor Represents 2 Points: Age 61-74 years Each Risk Factor Represents 3 Points: History of DVT/PE Other congenital or acquired thrombophilia - If yes, enter type in comment: No Thrombosis Risk Factor Assessment Total Risk Factor Score: 6 Thrombosis Risk Factor Assessment Level: High Risk Assessment and Plan Assessment: Acute urinary tract infection with sepsis. Patient was febrile and tachycardic on admission. Nausea vomiting and diarrhea. Possible acute gastroenteritis. Recurrent urinary tract infections with MDRD and ESBL Diabetes type 2 insulin-dependent Chronic occipital headache secondary to degenerative joint disease. Gait instability Chronic atrial insufficiency. On hydrocortisone at home History of hyperparathyroidism Hyperglycemia secondary to uncontrolled diabetes type 2 Fibromyalgia Osteoarthritis Obstructive sleep apnea on CPAP History of febrile gases History of remote DVT of right calf. History of back surgery History of MRSA Hypertension DVT prophylaxis Plan: Patient be continued on IV hydration, antibiotics in the form of Zosyn were started. Continue the insulin dosing. Continue with hydrocortisone dose and home medications and pain management with Dilaudid. Continue symptomatic management for nausea and vomiting. Follow closely and further recommendations based on the clinical course. Prognosis is guarded with multiple medical problems and complex medical conditions. Time with Patient: Greater than 30
[2018-12-27 17:14] LABS: Glucose,Whole Blood 174 mg/dL (75-99)
[2018-12-27] MEDS: ATORVASTATIN 40 MG TAB PO SCH (19:58)
[2018-12-27] MEDS: METOPROLOL SUCCINATE (ER) 50 MG TAB.ER.24H PO SCH (19:59)
[2018-12-27 20:40] LABS: Glucose,Whole Blood 158 mg/dL (75-99)
[2018-12-27] MEDS: INSULIN DETEMIR (LEVEMIR) 100 UNIT/ML SYR SQ SCH (21:06)
--- NOTE | 2018-12-27 22:14 | P.CONS ---
History of Present Illness - Reason for Consult Consult date: 12/27/18 Urinary tract infection with a history of recent ESBL E. coli Requesting physician: Sonia Swanson - Chief Complaint Fever and burning urine 2 days - History of Present Illness Patient is 68-year-old female who was recently admitted to hospital for urinary tract infection patient was treated with Levaquin and subsequently the urine culture came back positive for ESBL E. coli in view of overall improvement of the patient with Levaquin repeat UA was done which was not significantly positive and those culture later on came back negative and the patient discharged home on oral Levaquin patient has completed at that point the patient has to [place] compressor [place], patient 7 when she is taking the antibiotic she was doing well however the last 2 days she still having nausea vomiting diarrhea with multiple loose stools no blood or mucus in stools inability to keep anything down the patient be complaining of burning urine and suprapubic discomfort more of a dull aching pain 3-4 out of 10 and no radiation no significant flank pain. The symptoms the patient was brought into the ER by the EMS on arrival to the patient did have a fever of 103F patient white count was normal hearing was significantly positive the patient did recei ve a dose of Zosyn and was subsequently admitted to the hospital infectious disease was consulted for further recommendation regarding antibiotic therapy Review of Systems Positive points has been mentioned in HPI rest of the systems negative Past Medical History Past Medical History: COPD, Diabetes Mellitus, Deep Vein Thrombosis (DVT), Fibromyalgia, Hyperlipidemia, Hypertension, Osteoarthritis (OA), Pneumonia, Renal Disease, Sleep Apnea/CPAP/BIPAP, Vascular Disorder Additional Past Medical History / Comment(s): Pt recently admitted to [facility] on 12/10/18 with acute [id number], L eye conjunctivitis, gait instability. 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 Past Anesthesia/Blood Transfusion Reactions: Motion Sickness Additional Past Anesthesia/Blood Transfusion Reaction / Comm: never recieved blood Smoking Status: Never smoker - Past Family History Father Family Medical History: Coronary Artery Disease (CAD), CVA/TIA, Diabetes Mellitus, Myocardial Infarction ([place]), Pneumonia Additional Family Medical History / Comment(s): Father at the age of 78yrs from [place] and pneumonia. Mother Family Medical History: Cancer Additional Family Medical History / Comment(s): Mother had uterine cancer. She recently at the age of 96yrs old. Medications and Allergies Home Medications Medication Instructions Recorded Confirmed Type Cholecalciferol [Vitamin D3 (25 3,000 unit PO DAILY@0700 12/01/14 12/26/18 History Mcg = 1000 Iu)] Ondansetron [Zofran] 4 mg PO Q6H PRN 10/12/15 12/26/18 History Metoprolol Succinate (ER) [Toprol 50 mg PO HS 07/06/17 12/26/18 History XL] Meclizine [Antivert] 25 mg PO QID PRN 11/26/17 12/26/18 History Magnesium Oxide 400 mg PO QAM 02/26/18 12/26/18 History Pantoprazole [Protonix] 40 mg PO BID 02/26/18 12/26/18 History Hydrocortisone [Cortef] 10 mg PO AC-LUNCH 05/18/18 12/26/18 History Hydrocortisone [Cortef] 15 mg PO AC-BRKFST 05/18/18 12/26/18 History Hydrocortisone [Cortef] 5 mg PO HS 06/26/18 12/26/18 History Aspirin 81 mg PO DAILY #0 07/02/18 12/26/18 Rx Budesonide [Pulmicort Flexhaler] 1 puff INHALATION RT-BID PRN 08/12/18 12/26/18 History Glucagon Emergency Kit 1 mg IM ONCE PRN 08/12/18 12/26/18 History Methocarbamol [Robaxin-750] 750 mg PO TID PRN 09/09/18 12/26/18 History Cranberry 300mg 300 mg PO BID 10/08/18 12/26/18 History Ferrous Sulfate [Iron (65 MG 325 mg PO DAILY 10/08/18 12/26/18 History Elemental)] Folic Acid 0.4 mg PO DAILY 10/08/18 12/26/18 History L.acidoph,Paracasei, B.lactis 2 cap PO BID 10/08/18 12/26/18 History [Probiotic] Melatonin 5 mg PO HS PRN 10/08/18 12/26/18 History Multivitamins, Thera Liquid 30 ml PO DAILY 10/08/18 12/26/18 History [Theragran Liquid (formulary)] Potassium 99 mg PO DAILY 10/08/18 12/26/18 History Thiamine [Vitamin B-1] 100 mg PO DAILY 10/08/18 12/26/18 History Vitamin B-Complex Drops 1 drop PO BID 10/08/18 12/26/18 History Lisinopril [Zestril] 10 mg PO QAM 11/08/18 12/26/18 History Insulin Glargine [Lantus] 32 unit SQ HS 11/09/18 12/26/18 History Atorvastatin [Lipitor] 40 mg PO HS #30 tab 11/16/18 12/26/18 Rx Sertraline [Zoloft] 100 mg PO QAM 11/30/18 12/26/18 History Insulin Aspart [NovoLOG Flexpen] 20 unit SQ AC-BRKFST 12/08/18 12/26/18 History Insulin Aspart [NovoLOG Flexpen] 21 units SQ AC-LUNCH 12/08/18 12/26/18 History Insulin Aspart [NovoLOG Flexpen] 21 units SQ AC-SUPPER 12/08/18 12/26/18 History Prochlorperazine [Compazine] 10 mg PO Q8H PRN 12/08/18 12/26/18 History Promethazine HCl [Phenergan Syrup] 6.25 mg PO Q6H PRN 12/08/18 12/26/18 History amLODIPine [Norvasc] 5 mg PO DAILY #30 tab 12/13/18 12/26/18 Rx HYDROcodone/APAP 10-325MG [[place] 1 - 2 tab PO Q4-6H PRN 12/26/18 12/26/18 History 10-325] Allergies Allergy/AdvReac Type Severity Reaction Status Date / Time butorphanol tartrate Allergy BLISTERS Verified 12/26/18 14:52 [From Stadol] IN MOUTH ceftriaxone [From Rocephin] Allergy Unknown Verified 12/26/18 14:52 clarithromycin [From Biaxin] Allergy Rash/Hives Verified 12/26/18 14:52 codeine Allergy Rash/Hives Verified 12/26/18 14:52 ergotamine tartrate Allergy Unknown Verified 12/26/18 14:52 [From Cafergot] erythromycin base Allergy RASH, GI Verified 12/26/18 14:52 [From E-Mycin] SYMPTOMS ketorolac tromethamine Allergy Rash/Hives Verified 12/26/18 14:52 [From Toradol] liraglutide [From Victoza] Allergy Rash/Hives Verified 12/26/18 14:52 morphine Allergy Rash/Hives Verified 12/26/18 14:52 Penicillins Allergy Rash/Hives Verified 12/26/18 14:52 pentazocine lactate Allergy SEVERE Verified 12/26/18 14:52 [From Talwin] BLISTERS IN MOUTH pregabalin [From Lyrica] Allergy Rash/Hives Verified 12/26/18 14:52 propoxyphene HCl Allergy Rash/Hives Verified 12/26/18 14:52 [From Darvon] Sulfa (Sulfonamide Allergy Rash/Hives Verified 12/26/18 14:52 Antibiotics) tramadol Allergy Unknown Verified 12/26/18 14:52 monosodium glutamate [MSG] AdvReac Nausea & Verified 12/26/18 14:52 Vomiting nalbuphine HCl [From Nubain] AdvReac Nausea & Verified 12/26/18 14:52 Vomiting Physical Exam Vitals: Vital Signs Temp Pulse Pulse Pulse Resp BP BP 12/27/18 07:00 107/60 12/27/18 04:15 98.2 F 76 16 94/59 12/27/18 02:30 99.4 F 70 16 148/76 12/27/18 00:10 97.5 F L 62 16 12/26/18 20:15 97.9 F 95 14 100/63 12/26/18 15:24 98.6 F 115 H 20 12/26/18 14:38 107 H 104/65 BP Pulse Ox 12/27/18 07:00 12/27/18 04:15 97 12/27/18 02:30 95 12/27/18 00:10 102/66 97 12/26/18 20:15 97 12/26/18 15:24 109/70 97 12/26/18 14:38 96 Intake and Output 12/26/18 12/27/18 12/27/18 22:59 06:59 14:59 Other: Voiding Method Toilet Toilet # Voids 1 4 # Bowel Movements 1 2 Weight 65.771 kg GENERAL DESCRIPTION: An elderly female lying in bed, no distress. No tachypnea or accessory muscle of respiration use. HEENT: Shows Pallor , no scleral icterus. Oral mucous membrane is dry. No p haryngeal erythema or thrush NECK: Trachea central, no thyromegaly. LUNGS: Unlabored breathing. Clear to auscultation anteriorly. No wheeze or crackle. HEART: S1, S2, regular rate and rhythm. No loud murmur ABDOMEN: Soft, no tenderness , guarding or rigidity, no organomegaly EXTREMITIES: No edema of feet. SKIN: No rash, no masses palpable. NEUROLOGICAL: The patient is awake, alert, oriented x3, mood and affect normal Results CBC & Chem 7: 12/26/18 11:38 12/26/18 11:38 Labs: Abnormal Lab Results - Last 24 Hours (Table) 12/26/18 12/26/18 12/27/18 Range/Units 17:05 20:17 11:50 POC Glucose (mg/dL) 236 H 288 H 142 H (75-99) mg/dL Microbiology - Last 24 Hours (Table) 12/26/18 11:38 Blood Culture - Preliminary Blood No Growth after 24 hours 12/26/18 11:38 Urine Culture - Final Urine,Voided Assessment and Plan Assessment: 1-patient presented to hospital with systemic symptoms of nausea vomiting suprapubic discomfort and burning urine and a significantly positive UA likely suggestive of urinary tract infection in this patient who recently did have ESBL E. coli which was thought to be colonizer as the patient symptoms responded to the Levaquin with a follow-up urine culture were negative, we will need to cover for ESBL pathogen. Her current cultures are finalized, however in view of predominant GI symptoms with recent exposure to antibiotics underlying C. diff needs to be ruled out as well 2-patient with multiple antibiotics ALLERGIES that would limit the number of antibiotic safe to use Plan: 1-patient will be started on Invanz 1 g IV piggyback daily and waiting for the urine culture finalized 2-IV fluids 3-check a stool for C. diff and stool culture we will follow up on clinical condition and cultures to further adjust medication if needed Thank you for this consultation will follow this patient along with you Time with Patient: Greater than 30
[2018-12-28] MEDS: HYDROmorphone 0.5 MG/0.5 ML SYRINGE IVP PRN ×4 (00:02→12:34)
[2018-12-28 02:35] LABS: Glucose,Whole Blood 187 mg/dL (75-99)
[2018-12-28] MEDS: SODIUM CHLORIDE 0.9% 1,000 ML IV SCH ×2 (06:17→23:31)
[2018-12-28 07:17] LABS: Glucose,Whole Blood 78 mg/dL (75-99)
[2018-12-28] MEDS: ASPIRIN 81 MG PO SCH (07:31)
[2018-12-28] MEDS: THIAMINE 100 MG TAB PO SCH (07:31)
[2018-12-28] MEDS: LACTOBACILLUS ACIDOPH & BULGAR 1 EACH PACKET PO SCH ×2 (07:31→20:16)
[2018-12-28] MEDS: CHOLECALCIFEROL 1,000 UNIT TAB PO SCH (07:31)
[2018-12-28] MEDS: PANTOPRAZOLE 40 MG TABLET PO SCH ×2 (07:32→16:31)
[2018-12-28] MEDS: MAGNESIUM OXIDE 400 MG TAB PO SCH (07:32)
[2018-12-28] MEDS: LISINOPRIL 10 MG TAB PO SCH (07:32)
[2018-12-28] MEDS: amLODIPine 5 MG TAB PO SCH (07:32)
[2018-12-28] MEDS: POTASSIUM CHLORIDE ER 10 MEQ TAB.ER.PRT PO SCH (07:32)
[2018-12-28] MEDS: FOLIC ACID 1 MG TAB PO SCH (07:32)
[2018-12-28] MEDS: SERTRALINE 100 MG TAB PO SCH (07:33)
[2018-12-28] MEDS: MULTIVITAMINS, THERA 1 EACH TAB PO SCH (07:33)
[2018-12-28] MEDS: INSULIN ASPART (NovoLOG) 100 UNIT/ML VIAL SQ SCH ×4 (07:33→17:48)
[2018-12-28] MEDS: FERROUS SULFATE 325 MG TAB PO SCH (07:33)
[2018-12-28] MEDS: ERTAPENEM 1 GM in SODIUM CHLORIDE 0.9% 50 ML IVPB SCH (07:34)
[2018-12-28] MEDS: HYDROCORTISONE 10 MG TAB PO SCH ×3 (07:34→20:16)
[2018-12-28 11:48] LABS: Glucose,Whole Blood 119 mg/dL (75-99)
[2018-12-28 14:07] LABS: African American GFR (CKD) >90 (>60 ml/min/1.73 sqM); Anion Gap 10 mmol/L; Blood Urea Nitrogen 13 mg/dL (7-17); Calcium 9.9 mg/dL (8.4-10.2); Carbon Dioxide 26 mmol/L (22-30); Chloride 105 mmol/L (98-107); Glucose 143 mg/dL (74-99); Potassium 4.3 mmol/L (3.5-5.1); Sodium 141 mmol/L (137-145)
[2018-12-28 14:23] LABS: Basophils % (A) 0 %; Eosinophils # (A) 0.1 k/uL (0-0.7); Eosinophils % (A) 2 %; HCT 32.9 % (34.0-46.0); HGB 10.3 gm/dL (11.4-16.0); Hypochromasia Slight; Lymphocytes # (A) 0.7 k/uL (1.0-4.8); Lymphocytes % (A) 11 %; MCHC 31.3 g/dL (31.0-37.0); MCV 86.3 fL (80.0-100.0); Mean Platelet Volume 7.6; Monocytes # (A) 0.3 k/uL (0-1.0); Monocytes % (A) 4 %; Neutrophils # (A) 4.9 k/uL (1.3-7.7); Neutrophils % (A) 81 %; Platelet Count 173 k/uL (150-450); RBC 3.82 m/uL (3.80-5.40); RDW 14.3 % (11.5-15.5)
[2018-12-28] MEDS: VANCOMYCIN ORAL SOLUTION 250 MG/5 ML BOTTLE PO SCH ×3 (14:56→23:25)
[2018-12-28] MEDS: CHERRY FLAVOR 60 ML BOTTLE PO PRN ×2 (14:57→23:26)
--- NOTE | 2018-12-28 15:20 | PN ---
PROGRESS NOTE DATE OF SERVICE: 12/28/2018 REASON FOR FOLLOWUP: 1. Urinary tract infection. 2. Possible Clostridium difficile colitis. INTERVAL HISTORY: The patient did have a fever of 99.8 last night, the patient afebrile since then. Patient's main symptoms remains to be diarrhea. She has had multiple loose stools. No blood or mucus in the stool. Her stool is currently mixed with the urine, hence a truce specimen could not be sent. No chest pain, shortness of breath or cough. No abdominal pain. No nausea, no vomiting. PHYSICAL EXAMINATION: Blood pressure 125/70 with a pulse of 75, temperature 98.8, she is 94% on room air. General description is a middle-aged female up in the bed in no distress. RESPIRATORY SYSTEM: Unlabored breathing, clear to auscultation anteriorly. HEART: S1, S2. Regular rate and rhythm. ABDOMEN: Soft, no tenderness. EXTREMITIES: No edema of the feet. LABS: Repeat UA and stool for C difficile has been requested, not done and no CBC has been done. The initial cultures have been negative. Blood culture negative. DIAGNOSTIC IMPRESSION AND PLAN: Patient admitted to the hospital with acute nausea, vomiting and abdominal pain, and diarrhea. At this point, did have some suprapubic discomfort and urinary frequency with concern for recurrent urinary tract infections the patient did have positive UA and recent history of ESBL pathogen. She has been started on Invanz. Now the urine cultures are coming back negative. The patient predominant symptom has been diarrhea with high concern for Clostridium difficile colitis. At this time will discontinue the Invanz. Stool for Clostridium difficile has already been requested. Will empirically add oral vancomycin 250 p.o. q.6 hours and Questran and monitor clinical course closely. Continue supportive care. MMODL / IJN: [id number] /
[2018-12-28] MEDS: HYDROmorphone 1 MG/ML 1 ML SYRINGE IVP PRN ×3 (16:30→23:24)
[2018-12-28 17:17] LABS: Glucose,Whole Blood 190 mg/dL (75-99)
[2018-12-28] MEDS: CHOLESTYRAMINE (WITH SUGAR) 4 GM PACKET PO SCH (20:16)
[2018-12-28] MEDS: ATORVASTATIN 40 MG TAB PO SCH (20:17)
[2018-12-28] MEDS: METOPROLOL SUCCINATE (ER) 50 MG TAB.ER.24H PO SCH (20:17)
[2018-12-28] MEDS: MELATONIN 5 MG TABLET PO PRN (20:17)
[2018-12-28] MEDS: INSULIN DETEMIR (LEVEMIR) 100 UNIT/ML SYR SQ SCH (20:21)
[2018-12-28 20:28] LABS: Glucose,Whole Blood 182 mg/dL (75-99)
--- NOTE | 2018-12-29 00:28 | P.PN ---
Subjective Progress Note Date: 12/27/18 Principal diagnosis: Diarrhea possible C. diff Acute urinary tract infection Patient is a 63-year-old female with a known history of adrenal insufficiency currently on hydrocortisone at home, occipital neuralgia, COPD, diabetes type 2, fibromyalgia, hypertension, osteoarthritis and obstructive sleep apnea with recurrent urinary tract infections came to ER by EMS with the complaints of nausea vomiting and diarrhea for the past 2 days. Patient states she was unable to walk around the last 2 days do to the n/v/d so she is also having an increase in neck and back pain which she normally has. Patient is also febrile and tachycardic. Otherwise patient denied any chest pain or shortness of breath. No abdominal pain. Patient does have increased frequency of urination for the past few days. Patient was recently admitted to the hospital due to urinary tract infection and urine cultures growing ESBL., Which was thought to be colonization and patient did improve without antibiotics. Patient otherwise denied any complaints of cough or sputum production. T-max 103.7 and tachycardic. Patient was given a dose of Zosyn in the ER. Urinalysis showed cloudy, nitrite positive and large leukocyte esterase with WBC count of greater than 182 Patient is ALLERGIC to multiple medications including antibiotics. 12/27/2018 Patient is complaining of diarrhea not improving. C. diff toxin was sent. Otherwise patient is being continued on antibiotics for urinary tract infection. Urine culture is pending. No nausea vomiting. Denied any abdominal pain or Cramping. No fever no chills. Hemodynamically stable otherwise. Current medications reviewed. Objective - Vital Signs Vital signs: Vital Signs Temp 98.2 F 12/27/18 04:15 Pulse 76 12/27/18 04:15 Resp 16 12/27/18 04:15 BP 107/60 12/27/18 07:00 Pulse Ox 97 12/27/18 04:15 Intake & Output 12/26/18 12/27/18 12/27/18 18:59 06:59 18:59 Weight 65.771 kg 65.771 kg Other: Voiding Method Toilet Toilet # Voids 4 # Bowel Movements 2 - Exam PHYSICAL EXAMINATION: Patient is lying in the bed comfortably, no acute distress, awake alert and oriented.. HEENT: Normocephalic. Neck is supple. Pupils reactive. Nostrils clear. Oral cavity is moist. Ears reveal no drainage. Neck reveals no JVD, carotid bruits, or thyromegaly. CHEST EXAMINATION: Trachea is central. Symmetrical expansion. Lung hinds clear to auscultation and percussion. CARDIAC: Normal S1, S2 with no gallops. No murmurs ABDOMEN: Soft. Bowel sounds normal. No organomegaly. No abdominal bruits. Extremities: reveal no edema. No clubbing or cyanosis Neurologically awake, alert, oriented x3 with well-coordinated movements. No focal deficits noted Skin: No rash or skin lesions. Psychiatric: Coperative. Nonsuicidal Musculoskeletal: No joint swelling or deformity. Normal range of motion. - Labs CBC & Chem 7: 12/28/18 14:06 12/28/18 13:24 Labs: Abnormal Lab Results - Last 24 Hours (Table) 12/26/18 12/26/18 12/27/18 Range/Units 17:05 20:17 11:50 POC Glucose (mg/dL) 236 H 288 H 142 H (75-99) mg/dL Microbiology - Last 24 Hours (Table) 12/26/18 11:38 Blood Culture - Preliminary Blood No Growth after 24 hours 12/26/18 11:38 Urine Culture - Final Urine,Voided Assessment and Plan Assessment: Diarrhea. Suspected C. diff infection. Acute urinary tract infection with sepsis. Patient was febrile and tachycardic on admission. Nausea vomiting and diarrhea. Possible acute gastroenteritis. Recurrent urinary tract infections with MDRD and ESBL Diabetes type 2 insulin-dependent Chronic occipital headache secondary to degenerative joint disease. Gait instability Chronic atrial insufficiency. On hydrocortisone at home History of hyperparathyroidism Hyperglycemia secondary to uncontrolled diabetes type 2 Fibromyalgia Osteoarthritis Obstructive sleep apnea on CPAP History of febrile gases History of remote DVT of right calf. History of back surgery History of MRSA Hypertension DVT prophylaxis Plan: Patient be continued on IV hydration, antibiotics in the form of Invanz were started. Continue the insulin dosing. Continue with hydrocortisone dose and home medications and pain management with Dilaudid. Continue symptomatic management for nausea and vomiting. Follow closely and further recommendations based on the clinical course. Prognosis is guarded with multiple medical problems and complex medical conditions. Time with Patient: Greater than 30
--- NOTE | 2018-12-29 00:29 | P.PN ---
Subjective Progress Note Date: 12/28/18 Principal diagnosis: Diarrhea possible C. diff Acute urinary tract infection Patient is a 63-year-old female with a known history of adrenal insufficiency currently on hydrocortisone at home, occipital neuralgia, COPD, diabetes type 2, fibromyalgia, hypertension, osteoarthritis and obstructive sleep apnea with recurrent urinary tract infections came to ER by EMS with the complaints of nausea vomiting and diarrhea for the past 2 days. Patient states she was unable to walk around the last 2 days do to the n/v/d so she is also having an increase in neck and back pain which she normally has. Patient is also febrile and tachycardic. Otherwise patient denied any chest pain or shortness of breath. No abdominal pain. Patient does have increased frequency of urination for the past few days. Patient was recently admitted to the hospital due to urinary tract infection and urine cultures growing ESBL., Which was thought to be colonization and patient did improve without antibiotics. Patient otherwise denied any complaints of cough or sputum production. T-max 103.7 and tachycardic. Patient was given a dose of Zosyn in the ER. Urinalysis showed cloudy, nitrite positive and large leukocyte esterase with WBC count of greater than 182 Patient is ALLERGIC to multiple medications including antibiotics. 12/27/2018 Patient is complaining of diarrhea not improving. C. diff toxin was sent. Otherwise patient is being continued on antibiotics for urinary tract infection. Urine culture is pending. No nausea vomiting. Denied any abdominal pain or Cramping. No fever no chills. Hemodynamically stable otherwise. 12/28/2018 Patient is still having diarrhea. Urine culture came out positive. Antibodies have been discontinued. Patient was started on empirically with oral vancomycin for possible C. diff infection. WBC 6.0. ID is following. Continue the current management. No fever no chills. Current medications reviewed. Objective - Vital Signs Vital signs: Vital Signs Temp 98.0 F 12/28/18 13:29 Pulse 73 12/28/18 13:29 Resp 16 12/28/18 15:00 BP 119/64 12/28/18 13:29 Pulse Ox 93 L 12/28/18 13:29 Intake & Output 12/27/18 12/28/18 12/28/18 18:59 06:59 18:59 Intake Total 450 Output Total 400 Balance 450 -400 Weight 65.771 kg Intake: IV 450 Ertapenem 1 gm In Sodium 50 Chloride 0.9% 50 ml @ 100 mls/hr IVPB DAILY [facility] Rx #:[id number] Sodium Chloride 0.9% 1, 400 000 ml @ 50 mls/hr IV . Q20H [facility] Rx#:[id number] Output: Urine/Stool Mix 400 Other: Voiding Method Toilet Bedside Commode Bedside Commode # Voids 1 2 # Bowel Movements 2 - Exam PHYSICAL EXAMINATION: Patient is lying in the bed comfortably, no acute distress, awake alert and oriented.. HEENT: Normocephalic. Neck is supple. Pupils reactive. Nostrils clear. Oral cavity is moist. Ears reveal no drainage. Neck reveals no JVD, carotid bruits, or thyromegaly. CHEST EXAMINATION: Trachea is central. Symmetrical expansion. Lung hinds clear to auscultation and percussion. CARDIAC: Normal S1, S2 with no gallops. No murmurs ABDOMEN: Soft. Bowel sounds normal. No organomegaly. No abdominal bruits. Extremities: reveal no edema. No clubbing or cyanosis Neurologically awake, alert, oriented x3 with well-coordinated movements. No focal deficits noted Skin: No rash or skin lesions. Psychiatric: Coperative. Nonsuicidal Musculoskeletal: No joint swelling or deformity. Normal range of motion. - Labs CBC & Chem 7: 12/28/18 14:06 12/28/18 13:24 Labs: Abnormal Lab Results - Last 24 Hours (Table) 12/27/18 12/28/18 12/28/18 Range/Units 20:38 02:34 11:43 Hgb (11.4-16.0) gm/dL Hct (34.0-46.0) % Lymphocytes # (1.0-4.8) k/uL Glucose (74-99) mg/dL POC Glucose (mg/dL) 158 H 187 H 119 H (75-99) mg/dL 12/28/18 12/28/18 12/28/18 Range/Units 13:24 14:06 17:11 Hgb 10.3 L (11.4-16.0) gm/dL Hct 32.9 L (34.0-46.0) % Lymphocytes # 0.7 L (1.0-4.8) k/uL Glucose 143 H (74-99) mg/dL POC Glucose (mg/dL) 190 H (75-99) mg/dL Microbiology - Last 24 Hours (Table) 12/26/18 11:38 Blood Culture - Preliminary Blood No Growth after 48 hours Assessment and Plan Assessment: Diarrhea. Suspected C. diff infection. Acute urinary tract infection with sepsis. Patient was febrile and tachycardic on admission. Nausea vomiting and diarrhea. Possible acute gastroenteritis. Recurrent urinary tract infections with MDRD and ESBL Diabetes type 2 insulin-dependent Chronic occipital headache secondary to degenerative joint disease. Gait instability Chronic atrial insufficiency. On hydrocortisone at home History of hyperparathyroidism Hyperglycemia secondary to uncontrolled diabetes type 2 Fibromyalgia Osteoarthritis Obstructive sleep apnea on CPAP History of febrile gases History of remote DVT of right calf. History of back surgery History of MRSA Hypertension DVT prophylaxis Plan: Patient be continued on IV hydration, antibiotics in the form of Invanz was started. Discontinue Invanz due to urine culture came out negative. Continue the insulin dosing. Continue with hydrocortisone dose and home medications and pain management with Dilaudid. Continue symptomatic management for nausea and vomiting. Follow closely and further recommendations based on the clinical course. Prognosis is guarded with multiple medical problems and complex medical conditions. Time with Patient: Greater than 30
[2018-12-29 02:06] LABS: Glucose,Whole Blood 188 mg/dL (75-99)
[2018-12-29] MEDS: HYDROmorphone 1 MG/ML 1 ML SYRINGE IVP PRN ×7 (03:09→23:44)
[2018-12-29] MEDS: VANCOMYCIN ORAL SOLUTION 250 MG/5 ML BOTTLE PO SCH ×4 (06:08→23:43)
[2018-12-29] MEDS: CHERRY FLAVOR 60 ML BOTTLE PO PRN ×4 (06:09→23:43)
[2018-12-29 07:08] LABS: Glucose,Whole Blood 126 mg/dL (75-99)
[2018-12-29] MEDS: FOLIC ACID 1 MG TAB PO SCH (07:57)
[2018-12-29] MEDS: CHOLECALCIFEROL 1,000 UNIT TAB PO SCH (07:57)
[2018-12-29] MEDS: amLODIPine 5 MG TAB PO SCH (07:57)
[2018-12-29] MEDS: PANTOPRAZOLE 40 MG TABLET PO SCH ×2 (07:57→16:13)
[2018-12-29] MEDS: ASPIRIN 81 MG PO SCH (07:58)
[2018-12-29] MEDS: FERROUS SULFATE 325 MG TAB PO SCH (07:58)
[2018-12-29] MEDS: LACTOBACILLUS ACIDOPH & BULGAR 1 EACH PACKET PO SCH ×2 (07:58→20:52)
[2018-12-29] MEDS: MAGNESIUM OXIDE 400 MG TAB PO SCH (07:58)
[2018-12-29] MEDS: MULTIVITAMINS, THERA 1 EACH TAB PO SCH (07:58)
[2018-12-29] MEDS: LISINOPRIL 10 MG TAB PO SCH (07:58)
[2018-12-29] MEDS: SERTRALINE 100 MG TAB PO SCH (07:58)
[2018-12-29] MEDS: POTASSIUM CHLORIDE ER 10 MEQ TAB.ER.PRT PO SCH (07:58)
[2018-12-29] MEDS: THIAMINE 100 MG TAB PO SCH (07:58)
[2018-12-29] MEDS: HYDROCORTISONE 10 MG TAB PO SCH ×3 (07:59→20:52)
[2018-12-29] MEDS: CHOLESTYRAMINE (WITH SUGAR) 4 GM PACKET PO SCH ×2 (08:00→20:52)
[2018-12-29] MEDS: INSULIN ASPART (NovoLOG) 100 UNIT/ML VIAL SQ SCH ×3 (08:02→17:52)
--- NOTE | 2018-12-29 10:00 | P.PN ---
Subjective Patient is a 63-year-old female with a known history of adrenal insufficiency currently on hydrocortisone at home, occipital neuralgia, COPD, diabetes type 2, fibromyalgia, hypertension, osteoarthritis and obstructive sleep apnea with recurrent urinary tract infections came to ER by EMS with the complaints of nausea vomiting and diarrhea for the past 2 days. Patient states she was unable to walk around the last 2 days do to the n/v/d so she is also having an increase in neck and back pain which she normally has. Patient is also febrile and tachycardic. Otherwise patient denied any chest pain or shortness of breath. No abdominal pain. Patient does have increased frequency of urination for the past few days. Patient was recently admitted to the hospital due to urinary tract infection and urine cultures growing ESBL., Which was thought to be colonization and patient did improve without antibiotics. Patient otherwise denied any complaints of cough or sputum production. T-max 103.7 and tachycardic. Patient was given a dose of Zosyn in the ER. Urinalysis showed cloudy, nitrite positive and large leukocyte esterase with WBC count of greater than 182 Patient is ALLERGIC to multiple medications including antibiotics. 12/27/2018 Patient is complaining of diarrhea not improving. C. diff toxin was sent. Otherwise patient is being continued on antibiotics for urinary tract infection. Urine culture is pending. No nausea vomiting. Denied any abdominal pain or Cramping. No fever no chills. Hemodynamically stable otherwise. 12/28/2018 Patient is still having diarrhea. Urine culture came out positive. Antibodies have been discontinued. Patient was started on empirically with oral vancomycin for possible C. diff infection. WBC 6.0. ID is following. Continue the current management. No fever no chills. 12/29/2018 Patient is fully awake and oriented. She still have frequent bowel movements, as per patient more than 10 times per day. But she does not complain from a abdominal pain, she has some nausea but no vomiting. She has decreased appetite and she did not finish her regular diet. She denies postural symptoms or dizziness. She still have some dysuria however her urine culture came back negative and her antibiotics with Invanz has stopped. She is still on oral vancomycin for possible C. diff which results are still pending, we going to order the test. She is hemodynamically stable. No labs today repeat labs in the morning. Objective - Vital Signs Vital signs: Vital Signs Temp 97.9 F 12/29/18 05:30 Pulse 53 L 12/29/18 05:30 Resp 18 12/29/18 05:30 BP 115/65 12/29/18 05:30 Pulse Ox 92 L 12/29/18 05:30 Intake & Output 12/28/18 12/29/18 12/29/18 18:59 06:59 18:59 Intake Total 250 Balance 250 Intake: Oral 250 Other: Voiding Method Bedside Commode Bedside Commode # Voids 2 1 # Bowel Movements 2 1 - Exam Patient is lying in the bed comfortably, no acute distress, awake alert and oriented.. HEENT: Normocephalic. Neck is supple. Pupils reactive. Nostrils clear. Oral cavity is moist. Ears reveal no drainage. Neck reveals no JVD, carotid bruits, or thyromegaly. CHEST EXAMINATION: Trachea is central. Symmetrical expansion. Lung hinds clear to auscultation and percussion. CARDIAC: Normal S1, S2 with no gallops. No murmurs ABDOMEN: Soft. Bowel sounds normal. No organomegaly. No abdominal bruits. Extremities: reveal no edema. No clubbing or cyanosis Neurologically awake, alert, oriented x3 with well-coordinated movements. No focal deficits noted Skin: No rash or skin lesions. Psychiatric: Coperative. Nonsuicidal Musculoskeletal: No joint swelling or deformity. Normal range of motion. - Labs CBC & Chem 7: 12/28/18 14:06 12/28/18 13:24 Labs: Abnormal Lab Results - Last 24 Hours (Table) 12/28/18 12/28/18 12/28/18 Range/Units 11:43 13:24 14:06 Hgb 10.3 L (11.4-16.0) gm/dL Hct 32.9 L (34.0-46.0) % Lymphocytes # 0.7 L (1.0-4.8) k/uL Glucose 143 H (74-99) mg/dL POC Glucose (mg/dL) 119 H (75-99) mg/dL 12/28/18 12/28/18 12/29/18 Range/Units 17:11 20:18 02:03 Hgb (11.4-16.0) gm/dL Hct (34.0-46.0) % Lymphocytes # (1.0-4.8) k/uL Glucose (74-99) mg/dL POC Glucose (mg/dL) 190 H 182 H 188 H (75-99) mg/dL 12/29/18 Range/Units 07:05 Hgb (11.4-16.0) gm/dL Hct (34.0-46.0) % Lymphocytes # (1.0-4.8) k/uL Glucose (74-99) mg/dL POC Glucose (mg/dL) 126 H (75-99) mg/dL Microbiology - Last 24 Hours (Table) 12/26/18 11:38 Blood Culture - Preliminary Blood No Growth after 48 hours Assessment and Plan Assessment: Diarrhea. Suspected C. diff infection. Acute urinary tract infection with sepsis. Patient was febrile and tachycardic on admission. Nausea vomiting and diarrhea. Possible acute gastroenteritis. Recurrent urinary tract infections with MDRD and ESBL Diabetes type 2 insulin-dependent Chronic occipital headache secondary to degenerative joint disease. Gait instability Chronic atrial insufficiency. On hydrocortisone at home History of hyperparathyroidism Hyperglycemia secondary to uncontrolled diabetes type 2 Fibromyalgia Osteoarthritis Obstructive sleep apnea on CPAP History of febrile gases History of remote DVT of right calf. History of back surgery History of MRSA Hypertension DVT prophylaxis Plan: Patient be continued on IV hydration, antibiotics in the form of Invanz was started. Discontinue Invanz due to urine culture came out negative. Continue with oral vancomycin as per infectious disease recommendation. C. diff test is still pending Continue the insulin dosing. Continue with hydrocortisone dose and home medications and pain management with Dilaudid. Continue symptomatic management for nausea and vomiting. Follow closely and further recommendations based on the clinical course. Prognosis is guarded with multiple medical problems and complex medical conditions.Labs and medication were reviewed.. Continue same treatment. Continue with symptomatic treatment. Resume home medication. Monitor lytes and vitals. DVT and GI prophylaxis. Further recommendations of the clinical course of the patient DVT prophylaxis: Subcutaneous heparin GI Prophylaxis: Protonix Prognosis is guarded
[2018-12-29 11:50] LABS: Glucose,Whole Blood 218 mg/dL (75-99)
[2018-12-29 17:11] LABS: Glucose,Whole Blood 170 mg/dL (75-99)
[2018-12-29] MEDS: ATORVASTATIN 40 MG TAB PO SCH (20:52)
[2018-12-29] MEDS: INSULIN DETEMIR (LEVEMIR) 100 UNIT/ML SYR SQ SCH (20:52)
[2018-12-29] MEDS: METOPROLOL SUCCINATE (ER) 50 MG TAB.ER.24H PO SCH (20:52)
[2018-12-29] MEDS: SODIUM CHLORIDE 0.9% 1,000 ML IV SCH (20:52)
[2018-12-29 20:53] LABS: Glucose,Whole Blood 148 mg/dL (75-99)
[2018-12-30 02:08] LABS: Glucose,Whole Blood 201 mg/dL (75-99)
[2018-12-30] MEDS: HYDROmorphone 1 MG/ML 1 ML SYRINGE IVP PRN ×6 (04:13→20:57)
[2018-12-30] MEDS: VANCOMYCIN ORAL SOLUTION 250 MG/5 ML BOTTLE PO SCH ×3 (05:50→18:01)
[2018-12-30] MEDS: CHERRY FLAVOR 60 ML BOTTLE PO PRN ×2 (05:50→13:15)
[2018-12-30] MEDS: amLODIPine 5 MG TAB PO SCH (07:13)
[2018-12-30] MEDS: MULTIVITAMINS, THERA 1 EACH TAB PO SCH (07:13)
[2018-12-30] MEDS: MAGNESIUM OXIDE 400 MG TAB PO SCH (07:15)
[2018-12-30] MEDS: CHOLECALCIFEROL 1,000 UNIT TAB PO SCH (07:15)
[2018-12-30] MEDS: ASPIRIN 81 MG PO SCH (07:15)
[2018-12-30] MEDS: FERROUS SULFATE 325 MG TAB PO SCH (07:15)
[2018-12-30] MEDS: PANTOPRAZOLE 40 MG TABLET PO SCH ×2 (07:15→17:28)
[2018-12-30] MEDS: LISINOPRIL 10 MG TAB PO SCH (07:15)
[2018-12-30] MEDS: SERTRALINE 100 MG TAB PO SCH (07:15)
[2018-12-30] MEDS: THIAMINE 100 MG TAB PO SCH (07:15)
[2018-12-30] MEDS: LACTOBACILLUS ACIDOPH & BULGAR 1 EACH PACKET PO SCH ×2 (07:15→19:51)
[2018-12-30] MEDS: CHOLESTYRAMINE (WITH SUGAR) 4 GM PACKET PO SCH ×2 (07:15→19:51)
[2018-12-30] MEDS: HYDROCORTISONE 10 MG TAB PO SCH ×3 (07:15→21:20)
[2018-12-30] MEDS: POTASSIUM CHLORIDE ER 10 MEQ TAB.ER.PRT PO SCH (07:15)
[2018-12-30] MEDS: FOLIC ACID 1 MG TAB PO SCH (07:15)
[2018-12-30] MEDS: INSULIN ASPART (NovoLOG) 100 UNIT/ML VIAL SQ SCH ×3 (07:19→17:16)
[2018-12-30 07:22] LABS: Glucose,Whole Blood 98 mg/dL (75-99)
--- NOTE | 2018-12-30 08:25 | P.PN ---
Subjective Patient is a 63-year-old female with a known history of adrenal insufficiency currently on hydrocortisone at home, occipital neuralgia, COPD, diabetes type 2, fibromyalgia, hypertension, osteoarthritis and obstructive sleep apnea with recurrent urinary tract infections came to ER by EMS with the complaints of nausea vomiting and diarrhea for the past 2 days. Patient states she was unable to walk around the last 2 days do to the n/v/d so she is also having an increase in neck and back pain which she normally has. Patient is also febrile and tachycardic. Otherwise patient denied any chest pain or shortness of breath. No abdominal pain. Patient does have increased frequency of urination for the past few days. Patient was recently admitted to the hospital due to urinary tract infection and urine cultures growing ESBL., Which was thought to be colonization and patient did improve without antibiotics. Patient otherwise denied any complaints of cough or sputum production. T-max 103.7 and tachycardic. Patient was given a dose of Zosyn in the ER. Urinalysis showed cloudy, nitrite positive and large leukocyte esterase with WBC count of greater than 182 Patient is ALLERGIC to multiple medications including antibiotics. 12/27/2018 Patient is complaining of diarrhea not improving. C. diff toxin was sent. Otherwise patient is being continued on antibiotics for urinary tract infection. Urine culture is pending. No nausea vomiting. Denied any abdominal pain or Cramping. No fever no chills. Hemodynamically stable otherwise. 12/28/2018 Patient is still having diarrhea. Urine culture came out positive. Antibodies have been discontinued. Patient was started on empirically with oral vancomycin for possible C. diff infection. WBC 6.0. ID is following. Continue the current management. No fever no chills. 12/29/2018 Patient is fully awake and oriented. She still have frequent bowel movements, as per patient more than 10 times per day. But she does not complain from a abdominal pain, she has some nausea but no vomiting. She has decreased appetite and she did not finish her regular diet. She denies postural symptoms or dizziness. She still have some dysuria however her urine culture came back negative and her antibiotics with Invanz has stopped. She is still on oral vancomycin for possible C. diff which results are still pending, we going to order the test. She is hemodynamically stable. No labs today repeat labs in the morning. 12/30/2018 Patient is awake and oriented. Not in distress. She states that her bowel movement is improving, she is going half times and currently she is having 6 bow el movements per day as of yesterday. The bowel movement is more formed. C. diff this could not be done because patient time the bowel movement was mixed with urine and currently is more formed. No abdominal pain or nausea vomiting. She has low appetite for her diet still. Patient remains afebrile for more than 48 hours. Rest of Vitas looks stable. still pending. Sugar looks controlled. Labs are still pending. Patient continued on Protonix and oral vancomycin as well as gentle hydration. Objective - Vital Signs Vital signs: Vital Signs Temp 98.4 F 12/30/18 05:48 Pulse 57 L 12/30/18 05:48 Resp 18 12/30/18 05:48 BP 134/63 12/30/18 05:48 Pulse Ox 95 12/30/18 05:48 Intake & Output 12/29/18 12/30/18 12/30/18 18:59 06:59 18:59 Intake Total 720 650 Balance 720 650 Intake: IV 400 Sodium Chloride 0.9% 1, 400 000 ml @ 50 mls/hr IV . Q20H [facility] Rx#:[id number] Oral 320 650 Other: # Voids 2 # Bowel Movements 1 - Exam Patient is lying in the bed comfortably, no acute distress, awake alert and orie nted.. HEENT: Normocephalic. Neck is supple. Pupils reactive. Nostrils clear. Oral cavity is moist. Ears reveal no drainage. Neck reveals no JVD, carotid bruits, or thyromegaly. CHEST EXAMINATION: Trachea is central. Symmetrical expansion. Lung hinds clear to auscultation and percussion. CARDIAC: Normal S1, S2 with no gallops. No murmurs ABDOMEN: Soft. Bowel sounds normal. No organomegaly. No abdominal bruits. Extremities: reveal no edema. No clubbing or cyanosis Neurologically awake, alert, oriented x3 with well-coordinated movements. No focal deficits noted Skin: No rash or skin lesions. Psychiatric: Coperative. Nonsuicidal Musculoskeletal: No joint swelling or deformity. Normal range of motion. - Labs CBC & Chem 7: 12/28/18 14:06 12/28/18 13:24 Labs: Abnormal Lab Results - Last 24 Hours (Table) 12/29/18 12/29/18 12/29/18 Range/Units 11:47 17:06 20:49 POC Glucose (mg/dL) 218 H 170 H 148 H (75-99) mg/dL 12/30/18 Range/Units 02:05 POC Glucose (mg/dL) 201 H (75-99) mg/dL Microbiology - Last 24 Hours (Table) 12/26/18 11:38 Blood Culture - Preliminary Blood No Growth after 72 hours Assessment and Plan Assessment: Diarrhea. Suspected C. diff infection. Acute urinary tract infection with sepsis. Patient was febrile and tachycardic on admission. Nausea vomiting and diarrhea. Possible acute gastroenteritis. Recurrent urinary tract infections with MDRD and ESBL Diabetes type 2 insulin-dependent Chronic occipital headache secondary to degenerative joint disease. Gait instability Chronic atrial insufficiency. On hydrocortisone at home History of hyperparathyroidism Hyperglycemia secondary to uncontrolled diabetes type 2 Fibromyalgia Osteoarthritis Obstructive sleep apnea on CPAP History of febrile gases History of remote DVT of right calf. History of back surgery History of MRSA Hypertension DVT prophylaxis Plan: Patient be continued on IV hydration, antibiotics in the form of Invanz was started. Discontinue Invanz due to urine culture came out negative. Continue with oral vancomycin as per infectious disease recommendation. C. diff test is still pending Continue the insulin dosing. Continue with hydrocortisone dose and home medications and pain management with Dilaudid. Continue symptomatic management for nausea and vomiting. Follow closely and further recommendations based on the clinical course. Prognosis is guarded with multiple medical problems and complex medical conditions.Labs and medication were reviewed.. Continue same treatment. Continue with symptomatic treatment. Resume home medication. Monitor lytes and vitals. DVT and GI prophylaxis. Further recommendations of the clinical course of the patient DVT prophylaxis: Subcutaneous heparin GI Prophylaxis: Protonix Prognosis is guarded
[2018-12-30 09:01] LABS: Basophils % (A) 0 %; Eosinophils # (A) 0.2 k/uL (0-0.7); Eosinophils % (A) 3 %; HCT 31.8 % (34.0-46.0); HGB 9.8 gm/dL (11.4-16.0); Hypochromasia Slight; Lymphocytes # (A) 1.5 k/uL (1.0-4.8); Lymphocytes % (A) 29 %; MCH 26.7 pg (25.0-35.0); MCV 86.1 fL (80.0-100.0); Mean Platelet Volume 7.6; Monocytes # (A) 0.3 k/uL (0-1.0); Monocytes % (A) 5 %; Neutrophils # (A) 3.1 k/uL (1.3-7.7); Neutrophils % (A) 60 %; Platelet Count 186 k/uL (150-450); RBC 3.69 m/uL (3.80-5.40); RDW 14.2 % (11.5-15.5); WBC 5.2 k/uL (3.8-10.6)
[2018-12-30 09:12] LABS: African American GFR (CKD) >90 (>60 ml/min/1.73 sqM); Anion Gap 6 mmol/L; Blood Urea Nitrogen 8 mg/dL (7-17); Calcium 9.3 mg/dL (8.4-10.2); Carbon Dioxide 26 mmol/L (22-30); Chloride 107 mmol/L (98-107); Glucose 155 mg/dL (74-99); Potassium 3.8 mmol/L (3.5-5.1); Sodium 139 mmol/L (137-145)
[2018-12-30 11:52] LABS: Glucose,Whole Blood 167 mg/dL (75-99)
[2018-12-30 17:32] LABS: Glucose,Whole Blood 130 mg/dL (75-99)
[2018-12-30] MEDS: SODIUM CHLORIDE 0.9% 1,000 ML IV SCH (18:02)
[2018-12-30] MEDS: ATORVASTATIN 40 MG TAB PO SCH (19:51)
[2018-12-30] MEDS: METOPROLOL SUCCINATE (ER) 50 MG TAB.ER.24H PO SCH (19:51)
[2018-12-30 20:33] LABS: Glucose,Whole Blood 240 mg/dL (75-99)
[2018-12-30] MEDS: INSULIN DETEMIR (LEVEMIR) 100 UNIT/ML SYR SQ SCH (20:57)
[2018-12-31] MEDS: VANCOMYCIN ORAL SOLUTION 250 MG/5 ML BOTTLE PO SCH ×5 (00:11→23:16)
[2018-12-31] MEDS: HYDROmorphone 1 MG/ML 1 ML SYRINGE IVP PRN ×7 (00:12→22:54)
[2018-12-31] MEDS: CHERRY FLAVOR 60 ML BOTTLE PO PRN ×4 (00:12→17:39)
[2018-12-31] MEDS: ONDANSETRON 4 MG/2 ML VIAL IVP PRN (06:15)
[2018-12-31] MEDS: SODIUM CHLORIDE 0.9% 1,000 ML IV SCH (06:18)
[2018-12-31 06:55] LABS: Glucose,Whole Blood 159 mg/dL (75-99)
[2018-12-31] MEDS: CHOLESTYRAMINE (WITH SUGAR) 4 GM PACKET PO SCH ×2 (07:39→22:35)
[2018-12-31] MEDS: LACTOBACILLUS ACIDOPH & BULGAR 1 EACH PACKET PO SCH ×2 (07:39→22:35)
[2018-12-31] MEDS: MULTIVITAMINS, THERA 1 EACH TAB PO SCH (07:39)
[2018-12-31] MEDS: THIAMINE 100 MG TAB PO SCH (07:40)
[2018-12-31] MEDS: ASPIRIN 81 MG PO SCH (07:40)
[2018-12-31] MEDS: FERROUS SULFATE 325 MG TAB PO SCH (07:40)
[2018-12-31] MEDS: LISINOPRIL 10 MG TAB PO SCH (07:40)
[2018-12-31] MEDS: FOLIC ACID 1 MG TAB PO SCH (07:40)
[2018-12-31] MEDS: SERTRALINE 100 MG TAB PO SCH (07:40)
[2018-12-31] MEDS: CHOLECALCIFEROL 1,000 UNIT TAB PO SCH (07:40)
[2018-12-31] MEDS: amLODIPine 5 MG TAB PO SCH (07:40)
[2018-12-31] MEDS: MAGNESIUM OXIDE 400 MG TAB PO SCH (07:40)
[2018-12-31] MEDS: POTASSIUM CHLORIDE ER 10 MEQ TAB.ER.PRT PO SCH (07:40)
[2018-12-31] MEDS: PANTOPRAZOLE 40 MG TABLET PO SCH ×2 (07:40→17:39)
[2018-12-31] MEDS: HYDROCORTISONE 10 MG TAB PO SCH ×3 (07:41→22:39)
[2018-12-31] MEDS: INSULIN ASPART (NovoLOG) 100 UNIT/ML VIAL SQ SCH ×3 (07:41→17:39)
[2018-12-31 09:10] LABS: Basophils % (A) 0 %; Eosinophils # (A) 0.2 k/uL (0-0.7); Eosinophils % (A) 3 %; HCT 35.4 % (34.0-46.0); HGB 11.3 gm/dL (11.4-16.0); Hypochromasia Slight; Lymphocytes # (A) 1.6 k/uL (1.0-4.8); Lymphocytes % (A) 26 %; MCH 26.8 pg (25.0-35.0); MCHC 31.9 g/dL (31.0-37.0); Mean Platelet Volume 7.8; Monocytes # (A) 0.4 k/uL (0-1.0); Monocytes % (A) 7 %; Neutrophils # (A) 3.8 k/uL (1.3-7.7); Neutrophils % (A) 62 %; Platelet Count 216 k/uL (150-450); RBC 4.22 m/uL (3.80-5.40); RDW 14.5 % (11.5-15.5); WBC 6.2 k/uL (3.8-10.6)
[2018-12-31 09:24] LABS: African American GFR (CKD) >90 (>60 ml/min/1.73 sqM); Anion Gap 8 mmol/L; Blood Urea Nitrogen 7 mg/dL (7-17); Carbon Dioxide 29 mmol/L (22-30); Chloride 105 mmol/L (98-107); Glucose 108 mg/dL (74-99); Potassium 4.1 mmol/L (3.5-5.1); Sodium 142 mmol/L (137-145)
--- NOTE | 2018-12-31 12:30 | P.PN ---
Subjective Patient is a 63-year-old female with a known history of adrenal insufficiency currently on hydrocortisone at home, occipital neuralgia, COPD, diabetes type 2, fibromyalgia, hypertension, osteoarthritis and obstructive sleep apnea with recurrent urinary tract infections came to ER by EMS with the complaints of nausea vomiting and diarrhea for the past 2 days. Patient states she was unable to walk around the last 2 days do to the n/v/d so she is also having an increase in neck and back pain which she normally has. Patient is also febrile and tachycardic. Otherwise patient denied any chest pain or shortness of breath. No abdominal pain. Patient does have increased frequency of urination for the past few days. Patient was recently admitted to the hospital due to urinary tract infection and urine cultures growing ESBL., Which was thought to be colonization and patient did improve without antibiotics. Patient otherwise denied any complaints of cough or sputum production. T-max 103.7 and tachycardic. Patient was given a dose of Zosyn in the ER. Urinalysis showed cloudy, nitrite positive and large leukocyte esterase with WBC count of greater than 182 Patient is ALLERGIC to multiple medications including antibiotics. Patient continued to have diarrhea. She said that yesterday her diarrhea got better and she was having formed stools but today she is back loose stools again. She was also initially started on antibiotics for possible UA. Urine cultures came back negative so antibiotics which was since switched to Invanz wa s DC'd. Patient is continued on oral vancomycin for presumed C. diff. Stool was not able to be obtained as patient keeps contaminating it. Try again today discussed with the nurse ID enrollment consultant Objective - Vital Signs Vital signs: Vital Signs Temp 98.4 F 12/31/18 05:23 Pulse 50 L 12/31/18 05:23 Resp 18 12/31/18 05:23 BP 143/73 12/31/18 05:23 Pulse Ox 94 L 12/31/18 05:23 Intake & Output 12/30/18 12/31/18 12/31/18 18:59 06:59 18:59 Intake Total 400 Balance 400 Weight 65.771 kg Intake: Oral 400 Other: Voiding Method Bedside Commode # Voids 3 2 # Bowel Movements 2 - Exam On exam, alert and oriented x3. HEENT: Conjunctivae normal. eyes normal. NECK: No JVD. No thyroid enlargement. No LNs CARDIOVASCULAR: S1-S2 positive RESPIRATION: Breath sounds diminished in the bases. No rhonchi or crackles. No bronchial breathing. ABDOMEN: Soft, nontender . No guarding. no masses palpable. No ascites, No hepatosplenomegaly.Bowel sounds heard. LEGS: No edema. no swelling NERVOUS SYSTEM: Cranial N 2-12 grossly normal. Moves all 4 limbs. No focal deficits. No sensory deficit. No signs of cerebellar dysfucntion. Skin: no ulcer no rash - Labs CBC & Chem 7: 12/31/18 08:12 12/31/18 08:12 Labs: Abnormal Lab Results - Last 24 Hours (Table) 12/30/18 12/30/18 12/31/18 Range/Units 17:12 20:21 06:53 Hgb (11.4-16.0) gm/dL Glucose (74-99) mg/dL POC Glucose (mg/dL) 130 H 240 H 159 H (75-99) mg/dL 12/31/18 12/31/18 Range/Units 08:12 08:12 Hgb 11.3 L (11.4-16.0) gm/dL Glucose 108 H (74-99) mg/dL POC Glucose (mg/dL) (75-99) mg/dL Microbiology - Last 24 Hours (Table) 12/26/18 11:38 Blood Culture - Preliminary Blood No Growth after 96 hours Assessment and Plan Assessment: Diarrhea suspect C. diff Nausea vomiting along with diarrhea Recurrent urinary tract infection with MDRD and ESBL. Urine cultures currently negative for now Diabetes mellitus type 2 Chronic adrenal insufficiency on hydrocortisone at home. Hypertension History of hyperparathyroidism ELIZABET on CPAP History of DVT History of MRSA Plan - Continue vancomycin for now - Discussed with the nurse to try to collect the stool specimen today. - We'll discuss with infectious disease about starting on cholestyramine for diarrhea to give some texture to S2 - Continue hydrocortisone - Continue rest of the home medications - We'll follow the patient
[2018-12-31 12:41] LABS: Glucose,Whole Blood 150 mg/dL (75-99)
--- NOTE | 2018-12-31 15:59 | CDI ---
Documentation Clarification Form Date: 12/31/2018 3:40:40 PM From: Melinda Watson RN CCDS Admit Date: 12/26/2018 2:05:00 PM Patient Name: Melissa Pena Visit Number: [id number] Discharge Date: ATTENTION: The Clinical Documentation Specialists (CDI) and [facility] Coding Staff appreciate your assistance in clarifying documentation. Please respond to the clarification below the line at the bottom and electronically sign. The CDI & [facility] Coding staff will review the response and follow-up if needed. Please note: Queries are made part of the Legal Health Record. If you have any questions, please contact the author of this message via ITS. Dr. Nehemias Lechuga The diagnosis of Sepsis was documented in the H & P and progress notes dated 12/27/2018, 12/28/2018, 12/29/2018 and 12/30/2018 , but is not consistently noted in subsequent documentation. History/Risk Factors: 63 year old female presents to the ED with Nausea vomiting and diarrhea. Clinical Indicators: vss 162/85 111 103.7 17 94% ra Treatment: Zosyn ; Vancomycin Please clarify if the the diagnosis of Sepsis was: o Present/active this admission o Treated and resolved this admission o Ruled out o Other, please specify o Clinically unable to determine (Last Revision: March 2018-New) Treated and resolved this admission MTDD
[2018-12-31 16:50] LABS: Glucose,Whole Blood 130 mg/dL (75-99)
[2018-12-31 21:29] LABS: Glucose,Whole Blood 204 mg/dL (75-99)
[2018-12-31] MEDS: METOPROLOL SUCCINATE (ER) 50 MG TAB.ER.24H PO SCH (22:34)
[2018-12-31] MEDS: ATORVASTATIN 40 MG TAB PO SCH (22:35)
[2018-12-31] MEDS: INSULIN DETEMIR (LEVEMIR) 100 UNIT/ML SYR SQ SCH (22:35)
--- NOTE | 2018-12-31 23:47 | PN ---
PROGRESS NOTE DATE OF SERVICE: 12/31/2018 REASON FOR FOLLOWUP: Diarrhea with a question of C difficile colitis. INTERVAL HISTORY: The patient is afebrile. The patient did have a few episodes of loose stool starting around 5 this morning. Stool for C difficile could not be collected because of stool mixed with urine. The patient denies any chest pain, shortness of breath or cough. No abdominal pain. PHYSICAL EXAMINATION: Blood pressure 145/74 with a pulse of 79, temperature 98.2 she is 98% on room air. General description is an elderly female up in the bed in no distress. RESPIRATORY SYSTEM: Unlabored breathing. Clear to auscultation anteriorly. HEART: S1, S2. Regular rate and rhythm. ABDOMEN: Soft. No tenderness. LABS: Hemoglobin is 11.3, white count 6.2, BUN of 7, creatinine 0.53. DIAGNOSTIC IMPRESSION AND PLAN: Patient admitted to hospital with intractable nausea, vomiting and diarrhea; had some urinary symptoms, with initial concern for UTI. However, urine cultures have been negative. the GI symptoms and dizziness, exposure to antibiotic, concern for C difficile. The patient did show some clinical improvement initially. However, she did have worsening of symptoms this morning. Stool for C difficile will be collected. Keep the patient on vancomycin and Questran. Monitor her clinical course closely. Continue supportive care. SUMEET / ALLEGRA: [id number] /
[2019-01-01] MEDS: HYDROmorphone 1 MG/ML 1 ML SYRINGE IVP PRN ×5 (02:49→21:27)
[2019-01-01] MEDS: CHERRY FLAVOR 60 ML BOTTLE PO PRN (06:15)
[2019-01-01] MEDS: VANCOMYCIN ORAL SOLUTION 250 MG/5 ML BOTTLE PO SCH ×2 (06:15→13:42)
[2019-01-01 07:01] LABS: Glucose,Whole Blood 98 mg/dL (75-99)
[2019-01-01] MEDS: INSULIN ASPART (NovoLOG) 100 UNIT/ML VIAL SQ SCH ×3 (07:20→17:25)
[2019-01-01 09:25] LABS: Basophils % (A) 0 %; Eosinophils # (A) 0.2 k/uL (0-0.7); Eosinophils % (A) 3 %; HCT 35.7 % (34.0-46.0); HGB 11.3 gm/dL (11.4-16.0); Lymphocytes # (A) 1.6 k/uL (1.0-4.8); Lymphocytes % (A) 22 %; MCH 27.1 pg (25.0-35.0); MCHC 31.8 g/dL (31.0-37.0); MCV 85.2 fL (80.0-100.0); Mean Platelet Volume 7.3; Monocytes # (A) 0.4 k/uL (0-1.0); Monocytes % (A) 6 %; Neutrophils # (A) 4.8 k/uL (1.3-7.7); Neutrophils % (A) 67 %; Platelet Count 234 k/uL (150-450); RBC 4.19 m/uL (3.80-5.40); RDW 14.4 % (11.5-15.5); WBC 7.2 k/uL (3.8-10.6)
[2019-01-01] MEDS: PANTOPRAZOLE 40 MG TABLET PO SCH ×2 (09:32→17:25)
[2019-01-01] MEDS: LACTOBACILLUS ACIDOPH & BULGAR 1 EACH PACKET PO SCH ×2 (09:32→21:27)
[2019-01-01] MEDS: SERTRALINE 100 MG TAB PO SCH (09:32)
[2019-01-01] MEDS: THIAMINE 100 MG TAB PO SCH (09:33)
[2019-01-01] MEDS: FERROUS SULFATE 325 MG TAB PO SCH (09:33)
[2019-01-01] MEDS: LISINOPRIL 10 MG TAB PO SCH (09:33)
[2019-01-01] MEDS: HYDROCORTISONE 10 MG TAB PO SCH ×3 (09:33→21:28)
[2019-01-01] MEDS: POTASSIUM CHLORIDE ER 10 MEQ TAB.ER.PRT PO SCH (09:33)
[2019-01-01] MEDS: amLODIPine 5 MG TAB PO SCH (09:33)
[2019-01-01] MEDS: MULTIVITAMINS, THERA 1 EACH TAB PO SCH (09:33)
[2019-01-01] MEDS: CHOLECALCIFEROL 1,000 UNIT TAB PO SCH (09:33)
[2019-01-01] MEDS: ASPIRIN 81 MG PO SCH (09:33)
[2019-01-01] MEDS: FOLIC ACID 1 MG TAB PO SCH (09:33)
[2019-01-01] MEDS: MAGNESIUM OXIDE 400 MG TAB PO SCH (09:33)
[2019-01-01] MEDS: CHOLESTYRAMINE (WITH SUGAR) 4 GM PACKET PO SCH ×2 (09:34→21:27)
[2019-01-01 09:53] LABS: African American GFR (CKD) >90 (>60 ml/min/1.73 sqM); Anion Gap 4 mmol/L; Blood Urea Nitrogen 10 mg/dL (7-17); Calcium 9.9 mg/dL (8.4-10.2); Carbon Dioxide 32 mmol/L (22-30); Chloride 103 mmol/L (98-107); Glucose 101 mg/dL (74-99); Potassium 4.3 mmol/L (3.5-5.1); Sodium 139 mmol/L (137-145)
[2019-01-01] MEDS: SODIUM CHLORIDE 0.9% 1,000 ML IV SCH (11:19)
[2019-01-01 12:40] LABS: Glucose,Whole Blood 198 mg/dL (75-99)
[2019-01-01] MEDS ORDERED: HYDROmorphone 0.5 MG/0.5 ML SYRINGE IVP PRN (12:42)
[2019-01-01] MEDS: HYDROcodone/APAP 10-325MG 1 EACH TAB PO PRN ×2 (13:44→17:25)
--- NOTE | 2019-01-01 13:52 | P.PN ---
Subjective Patient is a 63-year-old female with a known history of adrenal insufficiency currently on hydrocortisone at home, occipital neuralgia, COPD, diabetes type 2, fibromyalgia, hypertension, osteoarthritis and obstructive sleep apnea with recurrent urinary tract infections came to ER by EMS with the complaints of nausea vomiting and diarrhea for the past 2 days. Patient states she was unable to walk around the last 2 days do to the n/v/d so she is also having an increase in neck and back pain which she normally has. Patient is also febrile and tachycardic. Otherwise patient denied any chest pain or shortness of breath. No abdominal pain. Patient does have increased frequency of urination for the past few days. Patient was recently admitted to the hospital due to urinary tract infection and urine cultures growing ESBL., Which was thought to be colonization and patient did improve without antibiotics. Patient otherwise denied any complaints of cough or sputum production. T-max 103.7 and tachycardic. Patient was given a dose of Zosyn in the ER. Urinalysis showed cloudy, nitrite positive and large leukocyte esterase with WBC count of greater than 182 Patient is ALLERGIC to multiple medications including antibiotics. Patient continued to have diarrhea. She said that yesterday her diarrhea got better and she was having formed stools but today she is back loose stools again. She was also initially started on antibiotics for possible UA. Urine cultures came back negative so antibiotics which was since switched to Invanz wa s DC'd. Patient is continued on oral vancomycin for presumed C. diff. Stool was not able to be obtained as patient keeps contaminating it. Try again today discussed with the nurse ID clinical operations consultant 01/01/2019 This is a she still having diarrhea very perfuse she had about 5 bowel movements from morning until now He said that she still feeling weak Complains of chronic abdominal pain No chest pain racing heart no cough no shortness of breath Objective - Vital Signs Vital signs: Vital Signs Temp 98.1 F 01/01/19 06:06 Pulse 50 L 01/01/19 06:06 Resp 16 01/01/19 08:00 BP 154/75 01/01/19 06:06 Pulse Ox 94 L 01/01/19 06:06 Intake & Output 12/31/18 01/01/19 01/01/19 18:59 06:59 18:59 Intake Total 100 Balance 100 Weight 65.771 kg Intake: Oral 100 Other: Voiding Method Bedside Commode # Voids 3 2 # Bowel Movements 5 0 - Exam On exam, alert and oriented x3. HEENT: Conjunctivae normal. eyes normal. NECK: No JVD. No thyroid enlargement. No LNs CARDIOVASCULAR: S1-S2 positive RESPIRATION: Breath sounds diminished in the bases. No rhonchi or crackles. No bronchial breathing. ABDOMEN: Soft, nontender . No guarding. no masses palpable. No ascites, No hepatosplenomegaly.Bowel sounds heard. LEGS: No edema. no swelling NERVOUS SYSTEM: Cranial N 2-12 grossly normal. Moves all 4 limbs. No focal defi cits. No sensory deficit. No signs of cerebellar dysfucntion. Skin: no ulcer no rash - Labs CBC & Chem 7: 01/01/19 08:49 01/01/19 08:49 Labs: Abnormal Lab Results - Last 24 Hours (Table) 12/31/18 12/31/18 01/01/19 Range/Units 16:40 21:17 08:49 Hgb 11.3 L (11.4-16.0) gm/dL Carbon Dioxide (22-30) mmol/L Glucose (74-99) mg/dL POC Glucose (mg/dL) 130 H 204 H (75-99) mg/dL 01/01/19 01/01/19 Range/Units 08:49 12:38 Hgb (11.4-16.0) gm/dL Carbon Dioxide 32 H (22-30) mmol/L Glucose 101 H (74-99) mg/dL POC Glucose (mg/dL) 198 H (75-99) mg/dL Microbiology - Last 24 Hours (Table) 12/26/18 11:38 Blood Culture - Final Blood No Growth after 144 hours Assessment and Plan Assessment: Diarrhea suspect C. diff Nausea vomiting along with diarrhea Recurrent urinary tract infection with MDRD and ESBL. Urine cultures currently negative for now Diabetes mellitus type 2 Chronic adrenal insufficiency on hydrocortisone at home. Hypertension History of hyperparathyroidism ELIZABET on CPAP History of DVT History of MRSA Plan - Continue vancomycin for now - Discussed with the nurse to try to collect the stool specimen today. - We'll discuss with infectious disease about starting on cholestyramine for diarrhea to give some texture to S2 - Continue hydrocortisone - Continue rest of the home medications - We'll follow the patient 01/01/2019 - The C. diff cultures apparently are negative. Waiting for the official report - Antibiotics changed to Flagyl 500 mg by mouth 3 times a day - We'll urge the patient to start taking the home dose of [place] and sit of Dilaudid IV and see how she does with the plans of discharging her home eventually. Patient showed understanding. So we will start her on home dose of [place] and try to avoid Dilaudid if he can - Once the patient's diarrhea slows down and stools are more formed patient can be discharged - We will get up and walk and see how she is doing depending upon that we might involve PTOT for needed. The case was discussed with nurse
--- NOTE | 2019-01-01 14:18 | PN ---
PROGRESS NOTE DATE OF SERVICE: 01/01/2019 REASON FOR FOLLOWUP VISIT: Diarrhea, question of +/- infection. INTERVAL HISTORY: The patient is currently afebrile. The patient denies having nausea, no vomiting. No abdominal pain. The diarrhea has slightly improved. No blood or mucus in the stool. No urinary symptoms. PHYSICAL EXAMINATION: Blood pressure 154/75 with a pulse of 80, temperature 98.1, he is 94% on room air. General description is a middle-aged female up in the bed in no distress. RESPIRATORY SYSTEM: Unlabored breathing, clear to auscultation anteriorly. HEART: S1, S2. Regular rate and rhythm. ABDOMEN: Soft, no tenderness. LABS: Stool for C diff came back negative. Hemoglobin 11.2, white count 7.2 with a BUN of 10, creatinine 0.60. DIAGNOSTIC IMPRESSION AND PLAN: Patient with intractable nausea, vomiting and diarrhea with recent exposure to antibiotic, consult for C diff. She was treated with oral vancomycin. Culture for C diff came back negative. Discontinue the oral vancomycin oral Flagyl. Check the stool culture. Continue supportive care. MMODL / IJN: [id number] /
[2019-01-01 17:18] LABS: Glucose,Whole Blood 129 mg/dL (75-99)
[2019-01-01] MEDS: metroNIDAZOLE 500 MG TAB PO SCH ×2 (17:25→21:28)
[2019-01-01] MEDS: METOPROLOL SUCCINATE (ER) 50 MG TAB.ER.24H PO SCH (21:28)
[2019-01-01] MEDS: ATORVASTATIN 40 MG TAB PO SCH (21:29)
[2019-01-01 21:37] LABS: Glucose,Whole Blood 275 mg/dL (75-99)
[2019-01-01] MEDS: INSULIN DETEMIR (LEVEMIR) 100 UNIT/ML SYR SQ SCH (21:41)
[2019-01-02] MEDS: HYDROcodone/APAP 10-325MG 1 EACH TAB PO PRN ×4 (01:29→21:25)
[2019-01-02] MEDS: HYDROmorphone 1 MG/ML 1 ML SYRINGE IVP PRN ×2 (03:47→10:34)
[2019-01-02 07:15] LABS: Glucose,Whole Blood 76 mg/dL (75-99)
[2019-01-02] MEDS: SODIUM CHLORIDE 0.9% 1,000 ML IV SCH (07:39)
[2019-01-02] MEDS: CHOLECALCIFEROL 1,000 UNIT TAB PO SCH (07:40)
[2019-01-02] MEDS: CHOLESTYRAMINE (WITH SUGAR) 4 GM PACKET PO SCH ×2 (07:40→20:50)
[2019-01-02] MEDS: LISINOPRIL 10 MG TAB PO SCH (07:41)
[2019-01-02] MEDS: ASPIRIN 81 MG PO SCH (07:41)
[2019-01-02] MEDS: FOLIC ACID 1 MG TAB PO SCH (07:41)
[2019-01-02] MEDS: SERTRALINE 100 MG TAB PO SCH (07:41)
[2019-01-02] MEDS: THIAMINE 100 MG TAB PO SCH (07:41)
[2019-01-02] MEDS: metroNIDAZOLE 500 MG TAB PO SCH ×3 (07:41→20:50)
[2019-01-02] MEDS: MULTIVITAMINS, THERA 1 EACH TAB PO SCH (07:41)
[2019-01-02] MEDS: LACTOBACILLUS ACIDOPH & BULGAR 1 EACH PACKET PO SCH ×2 (07:41→20:50)
[2019-01-02] MEDS: MAGNESIUM OXIDE 400 MG TAB PO SCH (07:41)
[2019-01-02] MEDS: POTASSIUM CHLORIDE ER 10 MEQ TAB.ER.PRT PO SCH (07:41)
[2019-01-02] MEDS: FERROUS SULFATE 325 MG TAB PO SCH (07:41)
[2019-01-02] MEDS: PANTOPRAZOLE 40 MG TABLET PO SCH ×2 (07:41→17:36)
[2019-01-02] MEDS: amLODIPine 5 MG TAB PO SCH (07:42)
[2019-01-02] MEDS: HYDROCORTISONE 10 MG TAB PO SCH ×3 (07:42→20:58)
[2019-01-02] MEDS: INSULIN ASPART (NovoLOG) 100 UNIT/ML VIAL SQ SCH ×3 (07:43→17:36)
[2019-01-02 11:41] LABS: Basophils % (A) 0 %; Eosinophils # (A) 0.2 k/uL (0-0.7); Eosinophils % (A) 2 %; HCT 33.6 % (34.0-46.0); HGB 10.7 gm/dL (11.4-16.0); Hypochromasia Slight; Lymphocytes # (A) 1.4 k/uL (1.0-4.8); Lymphocytes % (A) 19 %; MCHC 31.9 g/dL (31.0-37.0); MCV 84.9 fL (80.0-100.0); Mean Platelet Volume 8.1; Monocytes # (A) 0.4 k/uL (0-1.0); Monocytes % (A) 5 %; Neutrophils # (A) 5.4 k/uL (1.3-7.7); Neutrophils % (A) 71 %; Platelet Count 258 k/uL (150-450); RBC 3.96 m/uL (3.80-5.40); RDW 15.4 % (11.5-15.5); WBC 7.6 k/uL (3.8-10.6)
[2019-01-02 11:47] LABS: African American GFR (CKD) >90 (>60 ml/min/1.73 sqM); Anion Gap 7 mmol/L; Blood Urea Nitrogen 12 mg/dL (7-17); Calcium 10.1 mg/dL (8.4-10.2); Carbon Dioxide 27 mmol/L (22-30); Chloride 104 mmol/L (98-107); Glucose 154 mg/dL (74-99); Potassium 4.7 mmol/L (3.5-5.1); Sodium 138 mmol/L (137-145)
[2019-01-02 12:31] LABS: Glucose,Whole Blood 131 mg/dL (75-99)
--- NOTE | 2019-01-02 13:23 | PN ---
PROGRESS NOTE DATE OF SERVICE: 01/02/2019 REASON FOR FOLLOW UP: Diarrhea, possible infectious etiology. INTERVAL HISTORY: The patient is currently afebrile. Patient has been breathing comfortably. The patient's diarrhea has improved to have two soft bowel movement today. No blood in the stool. No abdominal pain. No nausea, vomiting. PHYSICAL EXAMINATION: Blood pressure is 133/76, pulse of 52, temperature 98 she is 92% on room air. General description is an elderly female, lying in bed, in no distress. RESPIRATORY SYSTEM: Unlabored breathing, clear to auscultation anteriorly. HEART: S1, S2. Regular rate and rhythm. ABDOMEN: Soft, no tenderness. LABS: Hemoglobin is 10.1, white count 7.2, BUN of 20, creatinine 0.52. DIAGNOSTIC IMPRESSION AND PLAN: Patient is here in the hospital include acute nausea, vomiting, abdominal pain, diarrhea initial concern for UTI in view of positive UA with urine culture negative. Subsequently, continue with oral vancomycin for possible C difficile. Stool for C diff came back negative. Currently on oral Flagyl and did have overall improvement in her diarrhea. She will continue oral Flagyl for another 7-10 days to finish a course of therapy and continue supportive care. MMODL / IJN: [id number] /
[2019-01-02 17:24] LABS: Glucose,Whole Blood 234 mg/dL (75-99)
[2019-01-02 20:23] LABS: Glucose,Whole Blood 178 mg/dL (75-99)
[2019-01-02] MEDS: METOPROLOL SUCCINATE (ER) 50 MG TAB.ER.24H PO SCH (20:50)
[2019-01-02] MEDS: ATORVASTATIN 40 MG TAB PO SCH (20:50)
[2019-01-02] MEDS: INSULIN DETEMIR (LEVEMIR) 100 UNIT/ML SYR SQ SCH (20:57)
[2019-01-02] MEDS: MELATONIN 5 MG TABLET PO PRN (21:25)
--- NOTE | 2019-01-02 21:59 | P.PN ---
Subjective Patient is a 63-year-old female with a known history of adrenal insufficiency currently on hydrocortisone at home, occipital neuralgia, COPD, diabetes type 2, fibromyalgia, hypertension, osteoarthritis and obstructive sleep apnea with recurrent urinary tract infections came to ER by EMS with the complaints of nausea vomiting and diarrhea for the past 2 days. Patient states she was unable to walk around the last 2 days do to the n/v/d so she is also having an increase in neck and back pain which she normally has. Patient is also febrile and tachycardic. Otherwise patient denied any chest pain or shortness of breath. No abdominal pain. Patient does have increased frequency of urination for the past few days. Patient was recently admitted to the hospital due to urinary tract infection and urine cultures growing ESBL., Which was thought to be colonization and patient did improve without antibiotics. Patient otherwise denied any complaints of cough or sputum production. T-max 103.7 and tachycardic. Patient was given a dose of Zosyn in the ER. Urinalysis showed cloudy, nitrite positive and large leukocyte esterase with WBC count of greater than 182 Patient is ALLERGIC to multiple medications including antibiotics. Patient continued to have diarrhea. She said that yesterday her diarrhea got better and she was having formed stools but today she is back loose stools again. She was also initially started on antibiotics for possible UA. Urine cultures came back negative so antibiotics which was since switched to Invanz wa s DC'd. Patient is continued on oral vancomycin for presumed C. diff. Stool was not able to be obtained as patient keeps contaminating it. Try again today discussed with the nurse ID test consultant 01/01/2019 This is a she still having diarrhea very perfuse she had about 5 bowel movements from morning until now He said that she still feeling weak Complains of chronic abdominal pain No chest pain racing heart no cough no shortness of breath 01/02/2019 Patient says her diarrhea is better but still feels weak No abd pain, no nausea, no vomiting No chest pain, no racing heart Objective - Vital Signs Vital signs: Vital Signs Temp 98.7 F 01/02/19 15:00 Pulse 59 L 01/02/19 15:00 Resp 20 01/02/19 16:00 BP 130/70 01/02/19 15:00 Pulse Ox 93 L 01/02/19 15:00 Intake & Output 01/02/19 01/02/19 01/03/19 06:59 18:59 06:59 Other: Voiding Method Toilet # Voids 1 2 # Bowel Movements 1 - Exam On exam, alert and oriented x3. HEENT: Conjunctivae normal. eyes normal. NECK: No JVD. No thyroid enlargement. No LNs CARDIOVASCULAR: S1-S2 positive RESPIRATION: Breath sounds diminished in the bases. No rhonchi or crackles. No bronchial breathing. ABDOMEN: Soft, nontender . No guarding. no masses palpable. No ascites, No hepatosplenomegaly.Bowel sounds heard. LEGS: No edema. no swelling NERVOUS SYSTEM: Cranial N 2-12 grossly normal. Moves all 4 limbs. No focal deficits. No sensory deficit. No signs of cerebellar dysfucntion. Skin: no ulcer no rash - Labs CBC & Chem 7: 01/02/19 10:38 01/02/19 10:38 Labs: Abnormal Lab Results - Last 24 Hours (Table) 01/02/19 01/02/19 01/02/19 Range/Units 10:38 10:38 12:21 Hgb 10.7 L (11.4-16.0) gm/dL Hct 33.6 L (34.0-46.0) % Glucose 154 H (74-99) mg/dL POC Glucose (mg/dL) 131 H (75-99) mg/dL 01/02/19 01/02/19 Range/Units 17:14 19:59 Hgb (11.4-16.0) gm/dL Hct (34.0-46.0) % Glucose (74-99) mg/dL POC Glucose (mg/dL) 234 H 178 H (75-99) mg/dL Microbiology - Last 24 Hours (Table) 01/02/19 03:50 Stool Culture - Preliminary Stool Assessment and Plan Assessment: Diarrhea suspect C. diff Nausea vomiting along with diarrhea Recurrent urinary tract infection with MDRD and ESBL. Urine cultures currently negative for now Diabetes mellitus type 2 Chronic adrenal insufficiency on hydrocortisone at home. Hypertension History of hyperparathyroidism ELIZABET on CPAP History of DVT History of MRSA Plan - Continue vancomycin for now - Discussed with the nurse to try to collect the stool specimen today. - We'll discuss with infectious disease about starting on cholestyramine for diarrhea to give some texture to S2 - Continue hydrocortisone - Continue rest of the home medications - We'll follow the patient 01/01/2019 - The C. diff cultures apparently are negative. Waiting for the official report - Antibiotics changed to Flagyl 500 mg by mouth 3 times a day - We'll urge the patient to start taking the home dose of [place] and sit of Dilaudid IV and see how she does with the plans of discharging her home eventually. Patient showed understanding. So we will start her on home dose of [place] and try to avoid Dilaudid if he can - Once the patient's diarrhea slows down and stools are more formed patient can be discharged - We will get up and walk and see how she is doing depending upon that we might involve PTOT for needed. The case was discussed with nurse 01/02/2019 - Will monitor the patient today - advised to get up and move around and see how she does - Continue abx flagyl - Continue the rest of the meds - Possible dc tomorrow if doing better and if stable
[2019-01-03 00:11] VITALS: RESP 18
[2019-01-03] MEDS: HYDROcodone/APAP 10-325MG 1 EACH TAB PO PRN ×2 (04:45→09:38)
[2019-01-03 05:45] VITALS: BP 130/75; PULSE 46; TEMP 98.2
[2019-01-03 07:22] LABS: Glucose,Whole Blood 70 mg/dL (75-99)
[2019-01-03] MEDS: HYDROCORTISONE 10 MG TAB PO SCH (07:28)
[2019-01-03] MEDS: SERTRALINE 100 MG TAB PO SCH (07:29)
[2019-01-03] MEDS: metroNIDAZOLE 500 MG TAB PO SCH (07:29)
[2019-01-03] MEDS: MULTIVITAMINS, THERA 1 EACH TAB PO SCH (07:29)
[2019-01-03] MEDS: FOLIC ACID 1 MG TAB PO SCH (07:29)
[2019-01-03] MEDS: CHOLESTYRAMINE (WITH SUGAR) 4 GM PACKET PO SCH (07:29)
[2019-01-03] MEDS: ASPIRIN 81 MG PO SCH (07:29)
[2019-01-03] MEDS: CHOLECALCIFEROL 1,000 UNIT TAB PO SCH (07:29)
[2019-01-03] MEDS: MAGNESIUM OXIDE 400 MG TAB PO SCH (07:30)
[2019-01-03] MEDS: amLODIPine 5 MG TAB PO SCH (07:30)
[2019-01-03] MEDS: LISINOPRIL 10 MG TAB PO SCH (07:30)
[2019-01-03] MEDS: LACTOBACILLUS ACIDOPH & BULGAR 1 EACH PACKET PO SCH (07:30)
[2019-01-03] MEDS: POTASSIUM CHLORIDE ER 10 MEQ TAB.ER.PRT PO SCH (07:30)
[2019-01-03] MEDS: INSULIN ASPART (NovoLOG) 100 UNIT/ML VIAL SQ SCH (07:30)
[2019-01-03] MEDS: FERROUS SULFATE 325 MG TAB PO SCH (07:30)
[2019-01-03] MEDS: THIAMINE 100 MG TAB PO SCH (07:30)
[2019-01-03] MEDS: PANTOPRAZOLE 40 MG TABLET PO SCH (07:30)
[2019-01-03 08:07] LABS: Basophils % (A) 0 %; Eosinophils # (A) 0.2 k/uL (0-0.7); Eosinophils % (A) 2 %; HCT 38.4 % (34.0-46.0); Hypochromasia Slight; Lymphocytes # (A) 2.2 k/uL (1.0-4.8); Lymphocytes % (A) 30 %; MCH 26.4 pg (25.0-35.0); MCHC 31.2 g/dL (31.0-37.0); MCV 84.6 fL (80.0-100.0); Mean Platelet Volume 7.1; Monocytes # (A) 0.4 k/uL (0-1.0); Monocytes % (A) 5 %; Neutrophils # (A) 4.3 k/uL (1.3-7.7); Neutrophils % (A) 61 %; Platelet Count 305 k/uL (150-450); RBC 4.54 m/uL (3.80-5.40); RDW 14.7 % (11.5-15.5); WBC 7.1 k/uL (3.8-10.6)
[2019-01-03 08:31] LABS: African American GFR (CKD) >90 (>60 ml/min/1.73 sqM); Anion Gap 7 mmol/L; Blood Urea Nitrogen 15 mg/dL (7-17); Calcium 10.7 mg/dL (8.4-10.2); Carbon Dioxide 30 mmol/L (22-30); Chloride 103 mmol/L (98-107); Glucose 92 mg/dL (74-99); Potassium 4.1 mmol/L (3.5-5.1); Sodium 140 mmol/L (137-145)
--- NOTE | 2019-01-03 10:31 | P.DS ---
Providers Date of admission: 12/26/18 14:05 Expected date of discharge: 01/03/19 Attending physician: Sonia Swanson Consults: 12/26/18 16:09 Consult Physician Routine Consulting Provider: Chalino Osman Consult Reason/Comments: History of ESBL UTI Do you want consulting provider notified?: Yes Primary care physician: Allyson Guardado MD Pertinent Studies: Patient is a 63-year-old female with a known history of adrenal insufficiency currently on hydrocortisone at home, occipital neuralgia, COPD, diabetes type 2, fibromyalgia, hypertension, osteoarthritis and obstructive sleep apnea with recurrent urinary tract infections came to ER by EMS with the complaints of nausea vomiting and diarrhea for the past 2 days. Patient states she was unable to walk around the last 2 days do to the n/v/d so she is also having an increase in neck and back pain which she normally has. Patient is also febrile and tachycardic. Otherwise patient denied any chest pain or shortness of breath. No abdominal pain. Patient does have increased frequency of urination for the past few days. Patient was recently admitted to the hospital due to urinary tract infection and urine cultures growing ESBL., Which was thought to be colonization and patient did improve without antibiotics. Patient otherwise denied any complaints of cough or sputum production. She had infectious disease on board. Initially she was continued on Invanz. Later on it was DC'd as the urine cultures did not grow anything. She was initially started on vancomycin oral for possible C. diff. There was some problem collecting the stool sample to get the C. diff testing done as the patient had the stool sample contaminated with urine continuously. Finally the C. diff testing was done and it came back negative. Her antibiotics were changed from oral ankle to Flagyl by infectious disease. Slowly her diarrhea improved and she is having formed bowel movements now. On 01/03/2019 On exam, alert and oriented x3. HEENT: Conjunctivae normal. eyes normal. NECK: No JVD. No thyroid enlargement. No LNs CARDIOVASCULAR: S1-S2 positive RESPIRATION: Breath sounds diminished in the bases. No rhonchi or crackles. No bronchial breathing. ABDOMEN: Soft, nontender . No guarding. no masses palpable. No ascites, No hepatosplenomegaly.Bowel sounds heard. LEGS: No edema. no swelling NERVOUS SYSTEM: Cranial N 2-12 grossly normal. Moves all 4 limbs. No focal deficits. No sensory deficit. No signs of cerebellar dysfucntion. Skin: no ulcer no rash She was thus cleared by infectious disease to be discharged. She will be discharged home on Flagyl to complete a course of stay 10 days She is to see her primary care doctor in 2 days. Appointment is being made by the gunite nozzle operator at the time of medication She is to see her hide inspector for her hypercalcemia. She is supposed to get parathyroidectomy in the near future. She was told to avoid calcium containing food and supplements. Patient Condition at Discharge: Stable Plan - Discharge Summary Discharge Rx Participant: No New Discharge Prescriptions: New metroNIDAZOLE [Flagyl] 500 mg PO TID #21 tab Cholestyramine (with Sugar) [Questran Packet] 4 gm PO BID@1000,2100 PRN #20 packet PRN Reason: Diarrhea Continue Cholecalciferol [Vitamin D3 (25 Mcg = 1000 Iu)] 3,000 unit PO DAILY@0700 Ondansetron [Zofran] 4 mg PO Q6H PRN PRN Reason: Nausea And Vomiting Metoprolol Succinate (ER) [Toprol XL] 50 mg PO HS Meclizine [Antivert] 25 mg PO QID PRN PRN Reason: Vertigo Magnesium Oxide 400 mg PO QAM Pantoprazole [Protonix] 40 mg PO BID Hydrocortisone [Cortef] 10 mg PO AC-LUNCH Hydrocortisone [Cortef] 15 mg PO AC-BRKFST Hydrocortisone [Cortef] 5 mg PO HS Aspirin 81 mg PO DAILY #0 Budesonide [Pulmicort Flexhaler] 1 puff INHALATION RT-BID PRN PRN Reason: Shortness Of Breath Glucagon Emergency Kit 1 mg IM ONCE PRN PRN Reason: Hypoglycemia Methocarbamol [Robaxin-750] 750 mg PO TID PRN PRN Reason: Muscle Spasm Ferrous Sulfate [Iron (65 MG Elemental)] 325 mg PO DAILY Vitamin B-Complex Drops 1 drop PO BID Thiamine [Vitamin B-1] 100 mg PO DAILY Folic Acid 0.4 mg PO DAILY Multivitamins, Thera Liquid [Theragran Liquid (formulary)] 30 ml PO DAILY L.acidoph,Paracasei, B.lactis [Probiotic] 2 cap PO BID Melatonin 5 mg PO HS PRN PRN Reason: Insomnia Cranberry 300mg 300 mg PO BID Potassium 99 mg PO DAILY Lisinopril [Zestril] 10 mg PO QAM Insulin Glargine [Lantus] 32 unit SQ HS Atorvastatin [Lipitor] 40 mg PO HS #30 tab Sertraline [Zoloft] 100 mg PO QAM Prochlorperazine [Compazine] 10 mg PO Q8H PRN PRN Reason: Nausea Promethazine HCl [Phenergan Syrup] 6.25 mg PO Q6H PRN PRN Reason: ALLERGIES Insulin Aspart [NovoLOG Flexpen] 21 units SQ AC-SUPPER Insulin Aspart [NovoLOG Flexpen] 21 units SQ AC-LUNCH Insulin Aspart [NovoLOG Flexpen] 20 unit SQ AC-BRKFST amLODIPine [Norvasc] 5 mg PO DAILY #30 tab HYDROcodone/APAP 10-325MG [Zirconia 10-325] 1 - 2 tab PO Q4-6H PRN PRN Reason: Pain Discharge Medication List Cholecalciferol [Vitamin D3 (25 Mcg = 1000 Iu)] 3,000 unit PO DAILY@0700 12/01/14 [History] Ondansetron [Zofran] 4 mg PO Q6H PRN 10/12/15 [History] Metoprolol Succinate (ER) [Toprol XL] 50 mg PO HS 07/06/17 [History] Meclizine [Antivert] 25 mg PO QID PRN 11/26/17 [History] Magnesium Oxide 400 mg PO QAM 02/26/18 [History] Pantoprazole [Protonix] 40 mg PO BID 02/26/18 [History] Hydrocortisone [Cortef] 10 mg PO AC-LUNCH 05/18/18 [History] Hydrocortisone [Cortef] 15 mg PO AC-BRKFST 05/18/18 [History] Hydrocortisone [Cortef] 5 mg PO HS 06/26/18 [History] Aspirin 81 mg PO DAILY #0 07/02/18 [Rx] Budesonide [Pulmicort Flexhaler] 1 puff INHALATION RT-BID PRN 08/12/18 [History] Glucagon Emergency Kit 1 mg IM ONCE PRN 08/12/18 [History] Methocarbamol [Robaxin-750] 750 mg PO TID PRN 09/09/18 [History] Cranberry 300mg 300 mg PO BID 10/08/18 [History] Ferrous Sulfate [Iron (65 MG Elemental)] 325 mg PO DAILY 10/08/18 [History] Folic Acid 0.4 mg PO DAILY 10/08/18 [History] L.acidoph,Paracasei, B.lactis [Probiotic] 2 cap PO BID 10/08/18 [History] Melatonin 5 mg PO HS PRN 10/08/18 [History] Multivitamins, Thera Liquid [Theragran Liquid (formulary)] 30 ml PO DAILY 10/08/18 [History] Potassium 99 mg PO DAILY 10/08/18 [History] Thiamine [Vitamin B-1] 100 mg PO DAILY 10/08/18 [History] Vitamin B-Complex Drops 1 drop PO BID 10/08/18 [History] Lisinopril [Zestril] 10 mg PO QAM 11/08/18 [History] Insulin Glargine [Lantus] 32 unit SQ HS 11/09/18 [History] Atorvastatin [Lipitor] 40 mg PO HS #30 tab 11/16/18 [Rx] Sertraline [Zoloft] 100 mg PO QAM 11/30/18 [History] Insulin Aspart [NovoLOG Flexpen] 20 unit SQ AC-BRKFST 12/08/18 [History] Insulin Aspart [NovoLOG Flexpen] 21 units SQ AC-LUNCH 12/08/18 [History] Insulin Aspart [NovoLOG Flexpen] 21 units SQ AC-SUPPER 12/08/18 [History] Prochlorperazine [Compazine] 10 mg PO Q8H PRN 12/08/18 [History] Promethazine HCl [Phenergan Syrup] 6.25 mg PO Q6H PRN 12/08/18 [History] amLODIPine [Norvasc] 5 mg PO DAILY #30 tab 12/13/18 [Rx] HYDROcodone/APAP 10-325MG [Zirconia 10-325] 1 - 2 tab PO Q4-6H PRN 12/26/18 [History] Cholestyramine (with Sugar) [Questran Packet] 4 gm PO BID@1000,2100 PRN #20 packet 01/03/19 [Rx] metroNIDAZOLE [Flagyl] 500 mg PO TID #21 tab 01/03/19 [Rx] Follow up Appointment(s)/Referral(s): Allyson Guardado MD [Primary Care Provider] - 1-2 days Activity/Diet/Wound Care/Special Instructions: She started to have any more diarrhea, any abdominal pain, any fever or chills, any nausea vomiting unresolving, any chest pain racing heart, any cough shortness of breath, any lightheadedness or dizziness, please call 911 and come to the ER No calcium supplements and no milk. Please follow up with the hide inspector for hypercalcemia. You will probably need a parathyroidectomy Discharge Disposition: HOME SELF-CARE
== END 2019-01-03 11:09 | disposition home or self-care (01) | DRG 872 ==
LOC: EC 09:59 → 4MS4W 14:05
PROVIDERS: ADMIT Internal Medicine; ATTEND Internal Medicine
DX: A41.9 Sepsis, unspecified organism (principal); N39.0 Urinary tract infection, site not specified; E27.40 Unspecified adrenocortical insufficiency; E11.65 Type 2 diabetes mellitus with hyperglycemia; J44.9 Chronic obstructive pulmonary disease, unspecified; E78.5 Hyperlipidemia, unspecified; G47.33 Obstructive sleep apnea (adult) (pediatric); G89.29 Other chronic pain; I10 Essential (primary) hypertension; M54.81 Occipital neuralgia; M79.7 Fibromyalgia; K52.9 Noninfective gastroenteritis and colitis, unspecified; M15.9 Polyosteoarthritis, unspecified; R26.81 Unsteadiness on feet; R10.9 Unspecified abdominal pain; Z79.4 Long term (current) use of insulin; Z79.82 Long term (current) use of aspirin; Z79.899 Other long term (current) drug therapy; Z88.1 Allergy status to other antibiotic agents; Z88.5 Allergy status to narcotic agent; Z88.0 Allergy status to penicillin; Z88.2 Allergy status to sulfonamides; Z88.8 Allergy status to other drugs, medicaments and biological substances; Z98.42 Cataract extraction status, left eye; Z98.41 Cataract extraction status, right eye; Z96.1 Presence of intraocular lens; Z98.1 Arthrodesis status; Z90.710 Acquired absence of both cervix and uterus; Z90.49 Acquired absence of other specified parts of digestive tract; Z86.718 Personal history of other venous thrombosis and embolism; Z89.421 Acquired absence of other right toe(s); Z87.442 Personal history of urinary calculi; Z87.440 Personal history of urinary (tract) infections; Z86.14 Personal history of Methicillin resistant Staphylococcus aureus infection; Z86.19 Personal history of other infectious and parasitic diseases; Z80.49 Family history of malignant neoplasm of other genital organs; Z82.49 Family history of ischemic heart disease and other diseases of the circulatory system; Z83.3 Family history of diabetes mellitus; Z82.3 Family history of stroke
CPT/HCPCS: 36415; 80048; 80053; 81001; 83605; 85025; 87040; 87045; 87046; 87086; 87324; 96365; 96372; 96375; 99285

== ENCOUNTER 2019-01-09 08:23 | Inpatient (IN) | payer MEDICARE, BC ==
[2019-01-09] MEDS ORDERED: HYDROCORTISONE SUCCINATE 100 MG/2 ML VIAL IV STA (08:37)
[2019-01-09] MEDS ORDERED: SODIUM CHLORIDE 0.9% 500 ML 500 ML IV STA (08:37)
[2019-01-09] MEDS ORDERED: SODIUM CHLORIDE 0.9% 1,000 ML IV STA (08:37)
--- NOTE | 2019-01-09 08:43 | ED ---
Nausea/Vomiting/Diarrhea HPI - General Stated complaint: Nausea/vomiting, weakness Time Seen by Provider: 01/09/19 08:23 Source: patient, EMS, RN notes reviewed, old records reviewed Mode of arrival: EMS - History of Present Illness Initial comments: This is a 59-year-old female with a recent hospitalization for UTI who does a history of adrenal insufficiency COPD type 2 diabetes hypertension among other medical maladies who is back today with complaints of 2-3 days of nausea vomiting diarrhea decreased oral intake weakness. Patient did later state that she's been having diarrhea up to 12 times a day. She also states that 2 days ago she had fevers and chills she still been having urinary frequency. States she was recently hospitalized was placed on antibiotics for UTI. She states she's not taken her medications Past couple days. She was found to be hypotensive with blood pressure 90s she did seem to respond to 300 mL of IV fluids given by paramedics. Last reported pressure was 101/62. No other modifying factors at this time MD complaint: nausea, vomiting, diarrhea, other - Related Data Home Medications Medication Instructions Recorded Confirmed Cholecalciferol [Vitamin D3 (25 3,000 unit PO DAILY@0700 12/01/14 01/09/19 Mcg = 1000 Iu)] Ondansetron [Zofran] 4 mg PO Q6H PRN 10/12/15 01/09/19 Metoprolol Succinate (ER) [Toprol 50 mg PO HS 07/06/17 01/09/19 XL] Meclizine [Antivert] 25 mg PO QID PRN 11/26/17 01/09/19 Magnesium Oxide 400 mg PO QAM 02/26/18 01/09/19 Pantoprazole [Protonix] 40 mg PO BID 02/26/18 01/09/19 Hydrocortisone [Cortef] 10 mg PO AC-LUNCH 05/18/18 01/09/19 Hydrocortisone [Cortef] 15 mg PO AC-BRKFST 05/18/18 01/09/19 Hydrocortisone [Cortef] 5 mg PO HS 06/26/18 01/09/19 Budesonide [Pulmicort Flexhaler] 1 puff INHALATION RT-BID PRN 08/12/18 01/09/19 Glucagon Emergency Kit 1 mg IM ONCE PRN 08/12/18 01/09/19 Methocarbamol [Robaxin-750] 750 mg PO TID PRN 09/09/18 01/09/19 Cranberry 300mg 300 mg PO BID 10/08/18 01/09/19 Ferrous Sulfate [Iron (65 MG 325 mg PO DAILY 10/08/18 01/09/19 Elemental)] Folic Acid 0.4 mg PO DAILY 10/08/18 01/09/19 L.acidoph,Paracasei, B.lactis 2 cap PO BID 10/08/18 01/09/19 [Probiotic] Melatonin 5 mg PO HS PRN 10/08/18 01/09/19 Multivitamins, Thera Liquid 30 ml PO DAILY 10/08/18 01/09/19 [Theragran Liquid (formulary)] Potassium 99 mg PO DAILY 10/08/18 01/09/19 Thiamine [Vitamin B-1] 100 mg PO DAILY 10/08/18 01/09/19 Vitamin B-Complex Drops 1 drop PO BID 10/08/18 01/09/19 Lisinopril [Zestril] 10 mg PO QAM 11/08/18 01/09/19 Insulin Glargine [Lantus] 32 unit SQ HS 11/09/18 01/09/19 Sertraline [Zoloft] 100 mg PO QAM 11/30/18 01/09/19 Insulin Aspart [NovoLOG Flexpen] 20 unit SQ AC-BRKFST 12/08/18 01/09/19 Insulin Aspart [NovoLOG Flexpen] 21 units SQ AC-LUNCH 12/08/18 01/09/19 Insulin Aspart [NovoLOG Flexpen] 21 units SQ AC-SUPPER 12/08/18 01/09/19 Prochlorperazine [Compazine] 10 mg PO Q8H PRN 12/08/18 01/09/19 Promethazine HCl [Phenergan Syrup] 6.25 mg PO Q6H PRN 12/08/18 01/09/19 HYDROcodone/APAP 10-325MG [[place] 1 - 2 tab PO Q4-6H PRN 12/26/18 01/09/19 10-325] Previous Rx's Medication Instructions Recorded Aspirin 81 mg PO DAILY #0 07/02/18 Atorvastatin [Lipitor] 40 mg PO HS #30 tab 11/16/18 amLODIPine [Norvasc] 5 mg PO DAILY #30 tab 12/13/18 Allergies Allergy/AdvReac Type Severity Reaction Status Date / Time butorphanol tartrate Allergy BLISTERS Verified 01/09/19 08:42 [From Stadol] IN MOUTH ceftriaxone [From Rocephin] Allergy Unknown Verified 01/09/19 08:42 clarithromycin [From Biaxin] Allergy Rash/Hives Verified 01/09/19 08:42 codeine Allergy Rash/Hives Verified 01/09/19 08:42 ergotamine tartrate Allergy Unknown Verified 01/09/19 08:42 [From Cafergot] erythromycin base Allergy RASH, GI Verified 01/09/19 08:42 [From E-Mycin] SYMPTOMS ketorolac tromethamine Allergy Rash/Hives Verified 01/09/19 08:42 [From Toradol] liraglutide [From Victoza] Allergy Rash/Hives Verified 01/09/19 08:42 morphine Allergy Rash/Hives Verified 01/09/19 08:42 Penicillins Allergy Rash/Hives Verified 01/09/19 08:42 pentazocine lactate Allergy SEVERE Verified 01/09/19 08:42 [From Talwin] BLISTERS IN MOUTH pregabalin [From Lyrica] Allergy Rash/Hives Verified 01/09/19 08:42 propoxyphene HCl Allergy Rash/Hives Verified 01/09/19 08:42 [From Darvon] Sulfa (Sulfonamide Allergy Rash/Hives Verified 01/09/19 08:42 Antibiotics) tramadol Allergy Unknown Verified 01/09/19 08:42 monosodium glutamate [MSG] AdvReac Nausea & Verified 01/09/19 08:42 Vomiting nalbuphine HCl [From Nubain] AdvReac Nausea & Verified 01/09/19 08:42 Vomiting Review of Systems ROS Statement: Those systems with pertinent positive or pertinent negative responses have been documented in the HPI. ROS Other: All systems not noted in ROS Statement are negative. Past Medical History Past Medical History: COPD, Diabetes Mellitus, Deep Vein Thrombosis (DVT), Fibromyalgia, Hyperlipidemia, Hypertension, Osteoarthritis (OA), Pneumonia, Renal Disease, Sleep Apnea/CPAP/BIPAP, Vascular Disorder Additional Past Medical History / Comment(s): Pt recently admitted to [facility] on 12/10/18 with acute [id number], L eye conjunctivitis, gait instability. 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 Past Anesthesia/Blood Transfusion Reactions: Motion Sickness Additional Past Anesthesia/Blood Transfusion Reaction / Comment(s): never recieved blood Smoking Status: Never smoker - Past Family History Father Family Medical History: Coronary Artery Disease (CAD), CVA/TIA, Diabetes Mellitus, Myocardial Infarction (NH), Pneumonia Additional Family Medical History / Comment(s): Father at the age of 78yrs from NH and pneumonia. Mother Family Medical History: Cancer Additional Family Medical History / Comment(s): Mother had uterine cancer. She recently at the age of 96yrs old. General Exam - General Exam Comments Initial Comments: This is a well-developed obese female who is awake alert oriented 3 General appearance: alert, lethargic Head exam: Present: atraumatic, normocephalic, normal inspection Eye exam: Present: PERRL, EOMI, other (Exophthalmos). Absent: scleral icterus, conjunctival injection, periorbital swelling ENT exam: Present: mucous membranes dry Neck exam: Present: normal inspection, tenderness (Some paraspinous muscle tenderness), full ROM, other (no stridor JVD or bruits). Absent: meningismus, lymphadenopathy Respiratory exam: Present: normal lung sounds bilaterally. Absent: respiratory distress, wheezes, rales, rhonchi, stridor Cardiovascular Exam: Present: regular rate, normal rhythm, normal heart sounds. Absent: systolic murmur, diastolic murmur, rubs, gallop, clicks GI/Abdominal exam: Present: soft, normal bowel sounds. Absent: distended, tenderness, guarding, rebound, rigid, bruit, pulsatile mass Extremities exam: Present: normal inspection, full ROM, normal capillary refill. Absent: tenderness, pedal edema, joint swelling, calf tenderness Back exam: Present: normal inspection Neurological exam: Present: alert, oriented X3, CN II-XII intact Psychiatric exam: Present: normal affect, normal mood Skin exam: Present: warm, dry, intact, normal color. Absent: rash Course Vital Signs 01/09/19 01/09/19 01/09/19 08:39 09:00 10:00 Temperature 97.9 F Pulse Rate 102 H 97 93 Respiratory 20 18 18 Rate Blood Pressure 113/82 113/82 102/70 O2 Sat by Pulse 98 Oximetry 01/09/19 01/09/19 01/09/19 11:00 12:00 13:00 Temperature Pulse Rate 107 H 93 103 H Respiratory 18 18 19 Rate Blood Pressure 97/65 100/63 147/81 O2 Sat by Pulse Oximetry Medical Decision Making - Medical Decision Making I did reevaluate patient on multiple occasions she has improved with respect her blood pressure for IV fluids and IV hydrocortisone. Patient still has persistent nausea as well as diarrhea she will be admitted for evaluation by GI. Patient has requested Dr. Oconnor's group. - Lab Data Result diagrams: 01/09/19 08:59 01/09/19 08:59 Lab Results 01/09/19 01/09/19 01/09/19 Range/Units 08:59 08:59 08:59 WBC 9.5 (3.8-10.6) k/uL RBC 5.34 (3.80-5.40) m/uL Hgb 14.6 (11.4-16.0) gm/dL Hct 45.9 (34.0-46.0) % MCV 86.0 (80.0-100.0) fL MCH 27.3 (25.0-35.0) pg MCHC 31.8 (31.0-37.0) g/dL RDW 15.4 (11.5-15.5) % Plt Count 355 (150-450) k/uL Neutrophils % 66 % Lymphocytes % 26 % Monocytes % 5 % Eosinophils % 2 % Basophils % 1 % Neutrophils # 6.2 (1.3-7.7) k/uL Lymphocytes # 2.4 (1.0-4.8) k/uL Monocytes # 0.5 (0-1.0) k/uL Eosinophils # 0.2 (0-0.7) k/uL Basophils # 0.1 (0-0.2) k/uL Hypochromasia Slight Poikilocytosis Slight Sodium 142 (137-145) mmol/L Potassium 4.1 (3.5-5.1) mmol/L Chloride 106 (98-107) mmol/L Carbon Dioxide 24 (22-30) mmol/L Anion Gap 12 mmol/L BUN 9 (7-17) mg/dL Creatinine 0.82 (0.52-1.04) mg/dL Est GFR (CKD-EPI)AfAm 85 (>60 ml/min/1.73 sqM) Est GFR (CKD-EPI)NonAf 73 (>60 ml/min/1.73 sqM) Glucose 231 H (74-99) mg/dL Calcium 11.4 H (8.4-10.2) mg/dL Magnesium 1.6 (1.6-2.3) mg/dL Total Bilirubin 1.2 (0.2-1.3) mg/dL AST 19 (14-36) U/L ALT 20 (9-52) U/L Alkaline Phosphatase 79 (38-126) U/L Creatine Kinase 26 L (30-135) U/L Troponin I <0.012 (0.000-0.034) ng/mL Total Protein 6.4 (6.3-8.2) g/dL Albumin 4.1 (3.5-5.0) g/dL Lipase 52 (23-300) U/L Urine Color Urine Appearance (Clear) Urine pH (5.0-8.0) Ur Specific [place] (1.001-1.035) Urine Protein (Negative) Urine Glucose (UA) (Negative) Urine Ketones (Negative) Urine Blood (Negative) Urine Nitrite (Negative) Urine Bilirubin (Negative) Urine Urobilinogen (<2.0) mg/dL Ur Leukocyte Esterase (Negative) Urine RBC (0-5) /hpf Urine WBC (0-5) /hpf Urine WBC Clumps (None) /hpf Amorphous Sediment (None) /hpf Urine Bacteria (None) /hpf Hyaline Casts (0-2) /lpf Urine Mucus (None) /hpf 01/09/19 Range/Units 10:40 WBC (3.8-10.6) k/uL RBC (3.80-5.40) m/uL Hgb (11.4-16.0) gm/dL Hct (34.0-46.0) % MCV (80.0-100.0) fL MCH (25.0-35.0) pg MCHC (31.0-37.0) g/dL RDW (11.5-15.5) % Plt Count (150-450) k/uL Neutrophils % % Lymphocytes % % Monocytes % % Eosinophils % % Basophils % % Neutrophils # (1.3-7.7) k/uL Lymphocytes # (1.0-4.8) k/uL Monocytes # (0-1.0) k/uL Eosinophils # (0-0.7) k/uL Basophils # (0-0.2) k/uL Hypochromasia Poikilocytosis Sodium (137-145) mmol/L Potassium (3.5-5.1) mmol/L Chloride (98-107) mmol/L Carbon Dioxide (22-30) mmol/L Anion Gap mmol/L BUN (7-17) mg/dL Creatinine (0.52-1.04) mg/dL Est GFR (CKD-EPI)AfAm (>60 ml/min/1.73 sqM) Est GFR (CKD-EPI)NonAf (>60 ml/min/1.73 sqM) Glucose (74-99) mg/dL Calcium (8.4-10.2) mg/dL Magnesium (1.6-2.3) mg/dL Total Bilirubin (0.2-1.3) mg/dL AST (14-36) U/L ALT (9-52) U/L Alkaline Phosphatase (38-126) U/L Creatine Kinase (30-135) U/L Troponin I (0.000-0.034) ng/mL Total Protein (6.3-8.2) g/dL Albumin (3.5-5.0) g/dL Lipase (23-300) U/L Urine Color Dark Brown Urine Appearance Cloudy H (Clear) Urine pH 5.5 (5.0-8.0) Ur Specific [place] 1.021 (1.001-1.035) Urine Protein 2+ H (Negative) Urine Glucose (UA) 3+ H (Negative) Urine Ketones Negative (Negative) Urine Blood Negative (Negative) Urine Nitrite Negative (Negative) Urine Bilirubin 1+ H (Negative) Urine Urobilinogen 2.0 (<2.0) mg/dL Ur Leukocyte Esterase Large H (Negative) Urine RBC 6 H (0-5) /hpf Urine WBC 105 H (0-5) /hpf Urine WBC Clumps Few H (None) /hpf Amorphous Sediment Rare H (None) /hpf Urine Bacteria Occasional H (None) /hpf Hyaline Casts 91 H (0-2) /lpf Urine Mucus Many H (None) /hpf - EKG Data -: EKG Interpreted by [place] EKG shows normal: sinus rhythm (Sinus tachycardia with PACs noted rate of 108. Interval 142 QRS duration 80 QT since QTC 300/[address]-t wave changes) - Radiology Data Radiology results: report reviewed, image reviewed Disposition Clinical Impression: Gastroenteritis, Weakness, Hypotensive episode, Dehydration, Failure to thrive Disposition: ADMITTED IP TO THIS [facility] Condition: Fair Referrals: Allyson Guardado MD [Primary Care Provider] - 1-2 days
[2019-01-09 09:59] LABS: Basophils # (A) 0.1 k/uL (0-0.2); Basophils % (A) 1 %; Eosinophils # (A) 0.2 k/uL (0-0.7); Eosinophils % (A) 2 %; HCT 45.9 % (34.0-46.0); HGB 14.6 gm/dL (11.4-16.0); Hypochromasia Slight; Lymphocytes # (A) 2.4 k/uL (1.0-4.8); Lymphocytes % (A) 26 %; MCH 27.3 pg (25.0-35.0); MCHC 31.8 g/dL (31.0-37.0); Mean Platelet Volume 7.5; Monocytes # (A) 0.5 k/uL (0-1.0); Monocytes % (A) 5 %; Neutrophils # (A) 6.2 k/uL (1.3-7.7); Neutrophils % (A) 66 %; Platelet Count 355 k/uL (150-450); Poikilocytosis Slight; RBC 5.34 m/uL (3.80-5.40); RDW 15.4 % (11.5-15.5); WBC 9.5 k/uL (3.8-10.6)
[2019-01-09 10:14] LABS: Albumin 4.1 g/dL (3.5-5.0); Calcium 11.4 mg/dL (8.4-10.2); Magnesium 1.6 mg/dL (1.6-2.3); Total Bilirubin 1.2 mg/dL (0.2-1.3); Total Protein 6.4 g/dL (6.3-8.2)
[2019-01-09 10:27] LABS: Potassium 4.1 mmol/L (3.5-5.1)
--- NOTE | 2019-01-09 10:43 | XR ---
EXAMINATION TYPE: XR chest 2V DATE OF EXAM: 01/09/2019 COMPARISON: 12/08/2018 HISTORY: Shortness of breath TECHNIQUE: Frontal and lateral views of the chest are obtained. FINDINGS: Scattered senescent parenchymal changes noted. Hyperinflation compatible with COPD. No evidence for infiltrate. No evidence for atelectasis. Heart size is stable. Mediastinal structures are stable and grossly unremarkable. No evidence for hilar prominence. Degenerative changes dorsal spine. IMPRESSION: 1. No evidence for acute pulmonary disease.
[2019-01-09] MEDS ORDERED: ACETAMINOPHEN TAB 325 MG TAB PO STA (10:51)
[2019-01-09 11:53] LABS: Amorphous Sediment,Urine Rare /hpf; Appearance,Urine Cloudy (Clear); Bacteria,Urine Occasional /hpf; Bilirubin,Urine 1+ (Negative); Blood,Urine Negative (Negative); Color,Urine Dark Brown; Glucose,Urine (UA) 3+ (Negative); Hyaline Casts,Urine 91 /lpf (0-2); Ketones,Urine Negative (Negative); Leukocyte Esterase,Urine Large (Negative); Mucus,Urine Many /hpf; Nitrite,Urine Negative (Negative); PH, Urine 5.5 (5.0-8.0); Protein,Urine 2+ (Negative); RBC,Urine 6 /hpf (0-5); Specific Gravity,Urine 1.021 (1.001-1.035); WBC,Urine 105 /hpf (0-5)
[2019-01-09] MEDS ORDERED: HYDROmorphone 1 MG/ML 1 ML SYRINGE IVP STA (13:47)
[2019-01-09] MEDS ORDERED: NALOXONE 0.4 MG/ML 1 ML VIAL IV PRN (14:07)
[2019-01-09] MEDS ORDERED: ONDANSETRON 4 MG TAB PO PRN (14:11)
[2019-01-09] MEDS ORDERED: MECLIZINE 25 MG TAB PO PRN (14:11)
[2019-01-09] MEDS ORDERED: MELATONIN 5 MG TABLET PO PRN (14:11)
[2019-01-09] MEDS ORDERED: FLUTICASONE 110 MCG INHALER INHALATION PRN (14:11)
[2019-01-09] MEDS ORDERED: GLUCAGON 1 MG/ML VIAL IM PRN (14:11)
[2019-01-09] MEDS ORDERED: PROCHLORPERAZINE 10 MG TAB PO PRN (14:11)
[2019-01-09] MEDS ORDERED: METHOCARBAMOL 750 MG TAB PO PRN (14:11)
[2019-01-09] MEDS ORDERED: PROMETHAZINE HCL 6.25 MG/5 ML CUP PO PRN (14:11)
[2019-01-09] MEDS: HYDROmorphone 1 MG/ML 1 ML SYRINGE IVP PRN ×3 (16:31→23:47)
[2019-01-09] MEDS: HYDROCORTISONE SUCCINATE 100 MG/2 ML VIAL IV SCH ×2 (16:32→23:47)
[2019-01-09 16:42] LABS: Glucose,Whole Blood 332 mg/dL (75-99)
[2019-01-09] MEDS: INSULIN ASPART (NovoLOG) 100 UNIT/ML VIAL SQ SCH ×2 (17:06→21:20)
[2019-01-09 20:36] LABS: Glucose,Whole Blood 283 mg/dL (75-99)
[2019-01-09] MEDS ORDERED: PANTOPRAZOLE 40 MG TABLET PO SCH (21:00)
[2019-01-09] MEDS ORDERED: CRANBERRY 300 MG PO SCH (21:00)
[2019-01-09] MEDS ORDERED: VITAMIN B COMPLEX PO SCH (21:00)
[2019-01-09] MEDS ORDERED: HYDROCORTISONE 10 MG TAB PO SCH (21:00)
[2019-01-09] MEDS: ATORVASTATIN 40 MG TAB PO SCH (21:21)
[2019-01-09] MEDS: METOPROLOL SUCCINATE (ER) 50 MG TAB.ER.24H PO SCH (21:21)
[2019-01-09] MEDS: LACTOBACILLUS ACIDOPH & BULGAR 1 EACH PACKET PO SCH (21:21)
[2019-01-10] MEDS: HYDROmorphone 1 MG/ML 1 ML SYRINGE IVP PRN ×5 (03:07→20:14)
[2019-01-10 07:05] LABS: Glucose,Whole Blood 241 mg/dL (75-99)
[2019-01-10] MEDS ORDERED: HYDROCORTISONE 10 MG TAB PO SCH (07:30)
[2019-01-10] MEDS: FOLIC ACID 1 MG TAB PO SCH (07:36)
[2019-01-10] MEDS: CHOLECALCIFEROL 1,000 UNIT TAB PO SCH (07:36)
[2019-01-10] MEDS: FERROUS SULFATE 325 MG TAB PO SCH (07:37)
[2019-01-10] MEDS: POTASSIUM CHLORIDE ER 10 MEQ TAB.ER.PRT PO SCH (07:37)
[2019-01-10] MEDS: ASPIRIN 81 MG PO SCH (07:37)
[2019-01-10] MEDS: MAGNESIUM OXIDE 400 MG TAB PO SCH (07:37)
[2019-01-10] MEDS: amLODIPine 5 MG TAB PO SCH (07:37)
[2019-01-10] MEDS: LACTOBACILLUS ACIDOPH & BULGAR 1 EACH PACKET PO SCH ×2 (07:37→20:15)
[2019-01-10] MEDS: THIAMINE 100 MG TAB PO SCH (07:37)
[2019-01-10] MEDS: LISINOPRIL 10 MG TAB PO SCH (07:37)
[2019-01-10] MEDS: SERTRALINE 100 MG TAB PO SCH (07:37)
[2019-01-10] MEDS: INSULIN ASPART (NovoLOG) 100 UNIT/ML VIAL SQ SCH ×4 (07:38→20:15)
[2019-01-10] MEDS: HYDROCORTISONE SUCCINATE 100 MG/2 ML VIAL IV SCH ×2 (07:38→15:38)
[2019-01-10] MEDS: PANTOPRAZOLE 40 MG/10 ML VIAL IV SCH (07:38)
[2019-01-10] MEDS: MULTIVITAMINS, THERA LIQUID 237 ML BOTTLE PO SCH (07:39)
[2019-01-10 11:46] LABS: Glucose,Whole Blood 271 mg/dL (75-99)
--- NOTE | 2019-01-10 16:12 | P.HPIM ---
History of Present Illness H&P Date: 01/10/19 Chief Complaint: Diarrhea Patient is a 63-year-old female with a known history of adrenal insufficiency currently on hydrocortisone at home, occipital neuralgia, COPD, diabetes type 2, fibromyalgia, hypertension, osteoarthritis and obstructive sleep apnea with recurrent urinary tract infections came to ER by EMS with the complaints of nausea vomiting and diarrhea for the past 2-3 days. Patient states she was unable to walk around the last 2 days do to the n/v/d so she is also having an increase in neck and back pain which she normally has. Patient was also having fevers subjectively as per patient. Denied any complaints of abdominal pain. Patient was admitted to the hospital recently and was discharged on 01/03/2019. She was treated for acute urinary tract infection. Urine culture came back negative at the time. Patient was still having diarrhea. C. diff toxin was negative at that time as well. Patient was discharged home with metronidazole to complete antibiotic course. Patient came back to the hospital due to diarrhea and loose bowels not improving. She was found to be hypotensive with blood pressure 90s she did seem to respond to 300 mL of IV fluids given by paramedics. Chest x-ray showed no acute cardiopulmonary process. WBC Review of Systems Constitutional: Patient says that she had fever at home. Generalized weakness and malaise.. Abdomen: Nausea vomiting and diarrhea. No abdominal pain.. Cardiovascular: Patient denies any chest pain or short of breath no palpitations. Respiratory: patient denied any cough is from production. No shortness of breath Neurologic: Patient denied any numbness or tingling headache. Musculoskeletal: Patient denies any complaints of joint swelling or deformity. Skin: Negative Psychiatric: Negative Endocrine: No heat or cold intolerance. No recent weight gain. Genitourinary: No dysuria or hematuria. All other 14 point ROS negative except the above Past Medical History Past Medical History: COPD, Diabetes Mellitus, Deep Vein Thrombosis (DVT), Fibromyalgia, Hyperlipidemia, Hypertension, Osteoarthritis (OA), Pneumonia, Renal Disease, Sleep Apnea/CPAP/BIPAP, Vascular Disorder Additional Past Medical History / Comment(s): Pt recently admitted to [facility] on 12/10/18 with acute [id number], L eye conjunctivitis, gait instability. 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 Past Anesthesia/Blood Transfusion Reactions: Motion Sickness Additional Past Anesthesia/Blood Transfusion Reaction / Comment(s): never recieved blood Past Psychological History: No Psychological Hx Reported Additional Psychological History / Comment(s): Pt resides with her spouse. She uses a walker if out shopping. she drives. She has a nebulizer, cpap, bsc, shower chair, bp machine, dexcom monitor system for her bs.. Smoking Status: Never smoker Past Alcohol Use History: None Reported Additional Past Alcohol Use History / Comment(s): no alcohol Past Drug Use History: None Reported - Past Family History Father Family Medical History: Coronary Artery Disease (CAD), CVA/TIA, Diabetes Mellitus, Myocardial Infarction ([place]), Pneumonia Additional Family Medical History / Comment(s): Father at the age of 78yrs from [place] and pneumonia. Mother Family Medical History: Cancer Additional Family Medical History / Comment(s): Mother had uterine cancer. She recently at the age of 96yrs old. Medications and Allergies Home Medications Medication Instructions Recorded Confirmed Type Cholecalciferol [Vitamin D3 (25 3,000 unit PO DAILY@0700 12/01/01/09/19 History Mcg = 1000 Iu)] Ondansetron [Zofran] 4 mg PO Q6H PRN 10/12/15 01/09/19 History Metoprolol Succinate (ER) [Toprol 50 mg PO HS 07/06/17 01/09/19 History XL] Meclizine [Antivert] 25 mg PO QID PRN 11/26/17 01/09/19 History Magnesium Oxide 400 mg PO QAM 02/26/18 01/09/19 History Pantoprazole [Protonix] 40 mg PO BID 02/26/18 01/09/19 History Hydrocortisone [Cortef] 10 mg PO AC-LUNCH 05/18/18 01/09/19 History Hydrocortisone [Cortef] 15 mg PO AC-BRKFST 05/18/18 01/09/19 History Hydrocortisone [Cortef] 5 mg PO HS 06/26/18 01/09/19 History Aspirin 81 mg PO DAILY #0 07/02/18 01/09/19 Rx Budesonide [Pulmicort Flexhaler] 1 puff INHALATION RT-BID PRN 08/12/18 01/09/19 History Glucagon Emergency Kit 1 mg IM ONCE PRN 08/12/18 01/09/19 History Methocarbamol [Robaxin-750] 750 mg PO TID PRN 09/09/18 01/09/19 History Cranberry 300mg 300 mg PO BID 10/08/18 01/09/19 History Ferrous Sulfate [Iron (65 MG 325 mg PO DAILY 10/08/18 01/09/19 History Elemental)] Folic Acid 0.4 mg PO DAILY 10/08/18 01/09/19 History L.acidoph,Paracasei, B.lactis 2 cap PO BID 10/08/18 01/09/19 History [Probiotic] Melatonin 5 mg PO HS PRN 10/08/18 01/09/19 History Multivitamins, Thera Liquid 30 ml PO DAILY 10/08/18 01/09/19 History [Theragran Liquid (formulary)] Potassium 99 mg PO DAILY 10/08/18 01/09/19 History Thiamine [Vitamin B-1] 100 mg PO DAILY 10/08/18 01/09/19 History Vitamin B-Complex Drops 1 drop PO BID 10/08/18 01/09/19 History Lisinopril [Zestril] 10 mg PO QAM 11/08/18 01/09/19 History Insulin Glargine [Lantus] 32 unit SQ HS 11/09/18 01/09/19 History Atorvastatin [Lipitor] 40 mg PO HS #30 tab 11/16/18 01/09/19 Rx Sertraline [Zoloft] 100 mg PO QAM 11/30/18 01/09/19 History Insulin Aspart [NovoLOG Flexpen] 20 unit SQ AC-BRKFST 12/08/18 01/09/19 History Insulin Aspart [NovoLOG Flexpen] 21 units SQ AC-LUNCH 12/08/18 01/09/19 History Insulin Aspart [NovoLOG Flexpen] 21 units SQ AC-SUPPER 12/08/18 01/09/19 History Prochlorperazine [Compazine] 10 mg PO Q8H PRN 12/08/18 01/09/19 History Promethazine HCl [Phenergan Syrup] 6.25 mg PO Q6H PRN 12/08/18 01/09/19 History amLODIPine [Norvasc] 5 mg PO DAILY #30 tab 12/13/18 01/09/19 Rx HYDROcodone/APAP 10-325MG [[place] 1 - 2 tab PO Q4-6H PRN 12/26/18 01/09/19 History 10-325] Allergies Allergy/AdvReac Type Severity Reaction Status Date / Time butorphanol tartrate Allergy BLISTERS Verified 01/09/19 08:42 [From Stadol] IN MOUTH ceftriaxone [From Rocephin] Allergy Unknown Verified 01/09/19 08:42 clarithromycin [From Biaxin] Allergy Rash/Hives Verified 01/09/19 08:42 codeine Allergy Rash/Hives Verified 01/09/19 08:42 ergotamine tartrate Allergy Unknown Verified 01/09/19 08:42 [From Cafergot] erythromycin base Allergy RASH, GI Verified 01/09/19 08:42 [From E-Mycin] SYMPTOMS ketorolac tromethamine Allergy Rash/Hives Verified 01/09/19 08:42 [From Toradol] liraglutide [From Victoza] Allergy Rash/Hives Verified 01/09/19 08:42 morphine Allergy Rash/Hives Verified 01/09/19 08:42 Penicillins Allergy Rash/Hives Verified 01/09/19 08:42 pentazocine lactate Allergy SEVERE Verified 01/09/19 08:42 [From Talwin] BLISTERS IN MOUTH pregabalin [From Lyrica] Allergy Rash/Hives Verified 01/09/19 08:42 propoxyphene HCl Allergy Rash/Hives Verified 01/09/19 08:42 [From Darvon] Sulfa (Sulfonamide Allergy Rash/Hives Verified 01/09/19 08:42 Antibiotics) tramadol Allergy Unknown Verified 01/09/19 08:42 monosodium glutamate [MSG] AdvReac Nausea & Verified 01/09/19 08:42 Vomiting nalbuphine HCl [From Nubain] AdvReac Nausea & Verified 01/09/19 08:42 Vomiting Physical Exam Vitals: Vital Signs Temp Pulse Resp BP Pulse Ox 01/10/19 14:48 98.8 F 61 15 110/57 93 L 01/10/19 07:00 98.8 F 63 16 124/68 93 L 01/10/19 02:25 98.4 F 58 L 17 115/64 95 01/09/19 19:15 98.6 F 71 18 125/80 93 L Intake and Output 01/10/19 01/10/19 01/10/19 06:59 14:59 22:59 Intake Total 360 Balance 360 Intake: Oral 360 Other: Voiding Method Toilet Toilet # Voids 1 PHYSICAL EXAMINATION: Patient is lying in the bed comfortably, no acute distress, awake alert and oriented.. HEENT: Normocephalic. Neck is supple. Pupils reactive. Nostrils clear. Oral cavity is moist. Ears reveal no drainage. Neck reveals no JVD, carotid bruits, or thyromegaly. CHEST EXAMINATION: Trachea is central. Symmetrical expansion. Lung hinds clear to auscultation and percussion. CARDIAC: Normal S1, S2 with no gallops. No murmurs ABDOMEN: Soft. Bowel sounds normal. No organomegaly. No abdominal bruits. Extremities: reveal no edema. No clubbing or cyanosis Neurologically awake, alert, oriented x3 with well-coordinated movements. No focal deficits noted Skin: No rash or skin lesions. Psychiatric: Coperative. Nonsuicidal Musculoskeletal: No joint swelling or deformity. Normal range of motion. Results CBC & Chem 7: 01/09/19 08:59 01/09/19 08:59 Labs: Abnormal Lab Results - Last 24 Hours (Table) 01/09/19 01/09/19 01/10/19 Range/Units 16:41 20:35 06:54 POC Glucose (mg/dL) 332 H 283 H 241 H (75-99) mg/dL 01/10/19 Range/Units 11:44 POC Glucose (mg/dL) 271 H (75-99) mg/dL Microbiology - Last 24 Hours (Table) 01/09/19 10:40 Urine Culture - Preliminary Urine,Catheterized Thrombosis Risk Factor Assmnt - DVT/VTE Prophylaxis DVT/VTE Prophylaxis: Pharmacologic Prophylaxis ordered - Choose All That Apply Each Factor Represents 1 point: Obesity (BMI >25) Other Risk Factors: Yes Each Risk Factor Represents 2 Points: Age 61-74 years Thrombosis Risk Factor Assessment Total Risk Factor Score: 3 Thrombosis Risk Factor Assessment Level: Moderate Risk Assessment and Plan Assessment: Acute Diarrhea. Ruled out C. diff infection. Patient recently completed antibiotic course with metronidazole.. Dehydration and volume depletion. Recent admission with urinary tract infection. Urine culture showed no growth. Mild hypercalcemia. 11.4 Recurrent urinary tract infections with with previous cultures includes MDRD and ESBL Diabetes type 2 insulin-dependent Chronic occipital headache secondary to degenerative joint disease. Gait instability Chronic adrenal insufficiency. On hydrocortisone at home History of hyperparathyroidism Hyperglycemia secondary to uncontrolled diabetes type 2 Fibromyalgia Osteoarthritis Obstructive sleep apnea on CPAP History of febrile gases History of remote DVT of right calf. History of back surgery History of MRSA Hypertension DVT prophylaxis Plan: Patient be continued on IV hydration. Repeat C. diff infections negative. GI was consulted for evaluation diarrhea. Continue the insulin dosing. Continue with hydrocortisone dose and home medications and pain management with Dilaudid. Continue symptomatic management for nausea and vomiting. Follow closely and further recommendations based on the clinical course. Prognosis is guarded with multiple medical problems and complex medical conditions. Time with Patient: Greater than 30
[2019-01-10 17:01] LABS: Glucose,Whole Blood 307 mg/dL (75-99)
[2019-01-10] MEDS: HYDROcodone/APAP 10-325MG 1 EACH TAB PO PRN (18:24)
[2019-01-10 20:10] LABS: Glucose,Whole Blood 364 mg/dL (75-99)
[2019-01-10] MEDS: ATORVASTATIN 40 MG TAB PO SCH (20:14)
[2019-01-10] MEDS: METOPROLOL SUCCINATE (ER) 50 MG TAB.ER.24H PO SCH (20:15)
--- NOTE | 2019-01-11 00:23 | P.CONS ---
History of Present Illness - Reason for Consult Consult date: 01/10/19 Nausea, vomiting, diarrhea Requesting physician: Sonia Swanson - Chief Complaint Nausea vomiting diarrhea - History of Present Illness 63-year-old female with multiple medical comorbidities including ELIZABET, osteoarthritis, hypertension, diabetes mellitus, COPD, fibromyalgia, adrenal insufficiency and occipital neuralgia who presented to the hospital with complaints of nausea, vomiting and diarrhea. The patient reported having over 10 bowel movements daily for the 2-3 days prior to presentation to the hospital. She denied any abdominal pain associated with the bowel movements. She does report associated fevers, chills and urinary frequency. She denies any sick contacts prior to her symptoms. She was recently treated for a urinary tract infection for which she was on antibiotic therapy. Currently patient is reporting that symptoms are much improved. No further nausea or vomiting. 3 bowel movements today which she reports were loose, but overall more formed than previously. On presentation to the hospital patient's WBC 9.5, hemoglobin 14.6, platelet count 355,000, total bilirubin 1.2, alkaline phosphatase 79, AST 18 and ALT 20 with testing for Clostridium difficile negative. She reports that her last colonoscopy was over 10 years ago and that she is due for another colonoscopy. Review of Systems REVIEW OF SYSTEMS: CONSTITUTIONAL: Denies any fevers, chills, this time, but did have some prior to presentation. CARDIOVASCULAR: Denies any chest pain, palpitations high or low blood pressures RESPIRATORY: Denies any shortness of breath, hemoptysis or cough. GENITOURINARY: No hematuria but did report dysuria prior to presentation. MUSCULOSKELETAL: No weakness reported. SKIN: Denies any new rashes or lesions, jaundice or pallor. PSYCHIATRIC: Denies any depression or anxiety. NEUROLOGY: Denies headache, denies any new focal deficits. EARS/NOSE/THROAT: No recent hearing change, congestion, nasal discharge or sore throat. EYES: No pain in eyes, discharge or change in vision. GASTROINTESTINAL: As per HPI. Past Medical History Past Medical History: COPD, Diabetes Mellitus, Deep Vein Thrombosis (DVT), Fibromyalgia, Hyperlipidemia, Hypertension, Osteoarthritis (OA), Pneumonia, Renal Disease, Sleep Apnea/CPAP/BIPAP, Vascular Disorder Additional Past Medical History / Comment(s): Pt recently admitted to [facility] on 12/10/18 with acute [id number], L eye conjunctivitis, gait instability. 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 Past Anesthesia/Blood Transfusion Reactions: Motion Sickness Additional Past Anesthesia/Blood Transfusion Reaction / Comm: never recieved blood Past Psychological History: No Psychological Hx Reported Additional Psychological History / Comment(s): Pt resides with her spouse. She uses a walker if out shopping. she drives. She has a nebulizer, cpap, bsc, shower chair, bp machine, dexcom monitor system for her bs.. Smoking Status: Never smoker Past Alcohol Use History: None Reported Additional Past Alcohol Use History / Comment(s): no alcohol Past Drug Use History: None Reported - Past Family History Father Family Medical History: Coronary Artery Disease (CAD), CVA/TIA, Diabetes Mellitus, Myocardial Infarction ([place]), Pneumonia Additional Family Medical History / Comment(s): Father at the age of 78yrs from [place] and pneumonia. Mother Family Medical History: Cancer Additional Family Medical History / Comment(s): Mother had uterine cancer. She recently at the age of 96yrs old. Medications and Allergies Home Medications Medication Instructions Recorded Confirmed Type Cholecalciferol [Vitamin D3 (25 3,000 unit PO DAILY@0700 12/01/14 01/09/19 History Mcg = 1000 Iu)] Ondansetron [Zofran] 4 mg PO Q6H PRN 10/12/15 01/09/19 History Metoprolol Succinate (ER) [Toprol 50 mg PO HS 07/06/17 01/09/19 History XL] Meclizine [Antivert] 25 mg PO QID PRN 11/26/17 01/09/19 History Magnesium Oxide 400 mg PO QAM 02/26/18 01/09/19 History Pantoprazole [Protonix] 40 mg PO BID 02/26/18 01/09/19 History Hydrocortisone [Cortef] 10 mg PO AC-LUNCH 05/18/18 01/09/19 History Hydrocortisone [Cortef] 15 mg PO AC-BRKFST 05/18/18 01/09/19 History Hydrocortisone [Cortef] 5 mg PO HS 06/26/18 01/09/19 History Aspirin 81 mg PO DAILY #0 07/02/18 01/09/19 Rx Budesonide [Pulmicort Flexhaler] 1 puff INHALATION RT-BID PRN 08/12/18 01/09/19 History Glucagon Emergency Kit 1 mg IM ONCE PRN 08/12/18 01/09/19 History Methocarbamol [Robaxin-750] 750 mg PO TID PRN 09/09/18 01/09/19 History Cranberry 300mg 300 mg PO BID 10/08/18 01/09/19 History Ferrous Sulfate [Iron (65 MG 325 mg PO DAILY 10/08/18 01/09/19 History Elemental)] Folic Acid 0.4 mg PO DAILY 10/08/18 01/09/19 History L.acidoph,Paracasei, B.lactis 2 cap PO BID 10/08/18 01/09/19 History [Probiotic] Melatonin 5 mg PO HS PRN 10/08/18 01/09/19 History Multivitamins, Thera Liquid 30 ml PO DAILY 10/08/18 01/09/19 History [Theragran Liquid (formulary)] Potassium 99 mg PO DAILY 10/08/18 01/09/19 History Thiamine [Vitamin B-1] 100 mg PO DAILY 10/08/18 01/09/19 History Vitamin B-Complex Drops 1 drop PO BID 10/08/18 01/09/19 History Lisinopril [Zestril] 10 mg PO QAM 11/08/18 01/09/19 History Insulin Glargine [Lantus] 32 unit SQ HS 11/09/18 01/09/19 History Atorvastatin [Lipitor] 40 mg PO HS #30 tab 11/16/18 01/09/19 Rx Sertraline [Zoloft] 100 mg PO QAM 11/30/18 01/09/19 History Insulin Aspart [NovoLOG Flexpen] 20 unit SQ AC-BRKFST 12/08/18 01/09/19 History Insulin Aspart [NovoLOG Flexpen] 21 units SQ AC-LUNCH 12/08/18 01/09/19 History Insulin Aspart [NovoLOG Flexpen] 21 units SQ AC-SUPPER 12/08/18 01/09/19 History Prochlorperazine [Compazine] 10 mg PO Q8H PRN 12/08/18 01/09/19 History Promethazine HCl [Phenergan Syrup] 6.25 mg PO Q6H PRN 12/08/18 01/09/19 History amLODIPine [Norvasc] 5 mg PO DAILY #30 tab 12/13/18 01/09/19 Rx HYDROcodone/APAP 10-325MG [[place] 1 - 2 tab PO Q4-6H PRN 12/26/18 01/09/19 History 10-325] Allergies Allergy/AdvReac Type Severity Reaction Status Date / Time butorphanol tartrate Allergy BLISTERS Verified 01/09/19 08:42 [From Stadol] IN MOUTH ceftriaxone [From Rocephin] Allergy Unknown Verified 01/09/19 08:42 clarithromycin [From Biaxin] Allergy Rash/Hives Verified 01/09/19 08:42 codeine Allergy Rash/Hives Verified 01/09/19 08:42 ergotamine tartrate Allergy Unknown Verified 01/09/19 08:42 [From Cafergot] erythromycin base Allergy RASH, GI Verified 01/09/19 08:42 [From E-Mycin] SYMPTOMS ketorolac tromethamine Allergy Rash/Hives Verified 01/09/19 08:42 [From Toradol] liraglutide [From Victoza] Allergy Rash/Hives Verified 01/09/19 08:42 morphine Allergy Rash/Hives Verified 01/09/19 08:42 Penicillins Allergy Rash/Hives Verified 01/09/19 08:42 pentazocine lactate Allergy SEVERE Verified 01/09/19 08:42 [From Talwin] BLISTERS IN MOUTH pregabalin [From Lyrica] Allergy Rash/Hives Verified 01/09/19 08:42 propoxyphene HCl Allergy Rash/Hives Verified 01/09/19 08:42 [From Darvon] Sulfa (Sulfonamide Allergy Rash/Hives Verified 01/09/19 08:42 Antibiotics) tramadol Allergy Unknown Verified 01/09/19 08:42 monosodium glutamate [MSG] AdvReac Nausea & Verified 01/09/19 08:42 Vomiting nalbuphine HCl [From Nubain] AdvReac Nausea & Verified 01/09/19 08:42 Vomiting Physical Exam Vitals: Vital Signs Temp Pulse Resp BP Pulse Ox 01/10/19 19:35 98.2 F 60 18 125/71 94 L 01/10/19 14:48 98.8 F 61 15 110/57 93 L 01/10/19 07:00 98.8 F 63 16 124/68 93 L 01/10/19 02:25 98.4 F 58 L 17 115/64 95 Intake and Output 01/10/19 01/10/19 01/11/19 14:59 22:59 06:59 Intake Total 360 240 Balance 360 240 Intake: Oral 360 240 Other: Voiding Method Toilet Toilet # Voids 1 On physical examination, patient appears comfortable in no apparent distress. HEAD: Normocephalic, atraumatic. EYES: No scleral icterus. No conjunctival injection. MOUTH: No lesions, tongue midline. NECK: Trachea midline, no gross abnormalities. CHEST: Decreased air entry bilaterally. HEART: S1-S2 appreciated/. ABDOMEN: Soft, obese. Bowel sounds are positive. No organomegaly. No guarding or rigidity. EXTREMITIES: No pedal edema. SKIN: No rashes, no jaundice. NEUROLOGIC: Alert and oriented x3. No focal deficits. Results CBC & Chem 7: 01/09/19 08:59 01/09/19 08:59 Labs: Abnormal Lab Results - Last 24 Hours (Table) 01/10/19 01/10/19 01/10/19 Range/Units 06:54 11:44 17:00 POC Glucose (mg/dL) 241 H 271 H 307 H (75-99) mg/dL 01/10/19 Range/Units 20:09 POC Glucose (mg/dL) 364 H (75-99) mg/dL Microbiology - Last 24 Hours (Table) 01/09/19 10:40 Urine Culture - Final Urine,Catheterized Assessment and Plan (1) Gastroenteritis Narrative/Plan: 68-year-old female with multiple medical comorbidities who presented to the hospital with complaints of 3 days of nausea, vomiting and diarrhea after recent treatment for urinary tract infection with antibiotics including Flagyl. Currently symptoms are improved with patient reporting 3 loose bowel movements which are more formed than prior to admission. No abdominal pain reported. Unknown etiology, may relate to gastroenteritis, antibiotic with Flagyl having no association with symptoms, other medication or other etiology. Current Visit: Yes Status: Acute Code(s): K52.9 - NONINFECTIVE GASTROENTERITIS AND COLITIS, UNSPECIFIED SNOMED Code(s): 87458185 (2) Sleep apnea Current Visit: No Status: Acute Code(s): G47.30 - SLEEP APNEA, UNSPECIFIED SNOMED Code(s): 83668220 (3) Adrenal insufficiency Current Visit: No Status: Chronic Code(s): E27.40 - UNSPECIFIED ADRENOCORTICAL INSUFFICIENCY SNOMED Code(s): 369630239 (4) Morbid obesity Current Visit: No Status: Chronic Code(s): E66.01 - MORBID (SEVERE) OBESITY DUE TO EXCESS CALORIES SNOMED Code(s): 966167863 Plan: Supportive care We'll advance to full liquid, if tolerates patient should be advanced to low lactose low-fat fiber diet Continue to monitor stool output If symptoms worsen will order further stool studies Continue probiotic Continue Protonix therapy Continue antiemetics as needed Patient will need to have colonoscopy after discharge If symptoms continue to improve okay for discharge from gastroenterology standpoint Thank you for allowing us to participate in the care of the patient we will continue to follow
[2019-01-11] MEDS: HYDROCORTISONE SUCCINATE 100 MG/2 ML VIAL IV SCH ×4 (00:43→23:41)
[2019-01-11] MEDS: HYDROcodone/APAP 10-325MG 1 EACH TAB PO PRN ×2 (00:44→23:15)
[2019-01-11] MEDS: HYDROmorphone 1 MG/ML 1 ML SYRINGE IVP PRN ×7 (02:06→22:14)
[2019-01-11 07:33] LABS: Glucose,Whole Blood 213 mg/dL (75-99)
[2019-01-11] MEDS: INSULIN ASPART (NovoLOG) 100 UNIT/ML VIAL SQ SCH ×4 (08:14→21:05)
[2019-01-11] MEDS: FERROUS SULFATE 325 MG TAB PO SCH (08:14)
[2019-01-11] MEDS: PANTOPRAZOLE 40 MG/10 ML VIAL IV SCH (08:14)
[2019-01-11] MEDS: THIAMINE 100 MG TAB PO SCH (08:14)
[2019-01-11] MEDS: amLODIPine 5 MG TAB PO SCH (08:14)
[2019-01-11] MEDS: LISINOPRIL 10 MG TAB PO SCH (08:14)
[2019-01-11] MEDS: MAGNESIUM OXIDE 400 MG TAB PO SCH (08:14)
[2019-01-11] MEDS: POTASSIUM CHLORIDE ER 10 MEQ TAB.ER.PRT PO SCH (08:14)
[2019-01-11] MEDS: FOLIC ACID 1 MG TAB PO SCH (08:15)
[2019-01-11] MEDS: LACTOBACILLUS ACIDOPH & BULGAR 1 EACH PACKET PO SCH ×2 (08:15→21:06)
[2019-01-11] MEDS: CHOLECALCIFEROL 1,000 UNIT TAB PO SCH (08:15)
[2019-01-11] MEDS: MULTIVITAMINS, THERA LIQUID 237 ML BOTTLE PO SCH (08:15)
[2019-01-11] MEDS: SERTRALINE 100 MG TAB PO SCH (08:15)
[2019-01-11] MEDS: ASPIRIN 81 MG PO SCH (08:18)
[2019-01-11 12:08] LABS: Glucose,Whole Blood 270 mg/dL (75-99)
[2019-01-11 16:46] LABS: Glucose,Whole Blood 271 mg/dL (75-99)
[2019-01-11 21:01] LABS: Glucose,Whole Blood 374 mg/dL (75-99)
[2019-01-11] MEDS: ATORVASTATIN 40 MG TAB PO SCH (21:05)
[2019-01-11] MEDS: METOPROLOL SUCCINATE (ER) 50 MG TAB.ER.24H PO SCH (21:05)
--- NOTE | 2019-01-11 22:37 | P.PN ---
Subjective Progress Note Date: 01/11/19 Principal diagnosis: Nausea, vomiting, diarrhea Patient denies any abdominal pain, reports 2 soft bowel movements today. Tolerating diet. Objective - Vital Signs Vital signs: Vital Signs Temp 99.4 F 01/11/19 20:34 Pulse 64 01/11/19 20:34 Resp 18 01/11/19 21:35 BP 143/73 01/11/19 20:34 Pulse Ox 94 L 01/11/19 20:34 Intake & Output 01/11/19 01/11/19 01/12/19 06:59 18:59 06:59 Intake Total 550 200 Balance 550 200 Intake: Oral 550 200 Other: Voiding Method Toilet Toilet # Voids 2 1 1 - Exam On physical examination, patient appears comfortable in no apparent distress. HEAD: Normocephalic, atraumatic. EYES: No scleral icterus. No conjunctival injection. MOUTH: No lesions, tongue midline. NECK: Trachea midline, no gross abnormalities. CHEST: Clear to auscultation with no wheezing or rhonchi appreciated. HEART: S1-S2 appreciated. ABDOMEN: Soft, obese. Bowel sounds are positive. No organomegaly. No guarding or rigidity. EXTREMITIES: No pedal edema. SKIN: No rashes, no jaundice. NEUROLOGIC: Alert and oriented x3. No focal deficits. - Labs CBC & Chem 7: 01/09/19 08:59 01/09/19 08:59 Labs: Abnormal Lab Results - Last 24 Hours (Table) 01/11/19 01/11/19 01/11/19 Range/Units 07:31 12:06 16:44 POC Glucose (mg/dL) 213 H 270 H 271 H (75-99) mg/dL 01/11/19 Range/Units 20:57 POC Glucose (mg/dL) 374 H (75-99) mg/dL Assessment and Plan (1) Gastroenteritis Narrative/Plan: 68-year-old female with multiple medical comorbidities who presented to the hospital with complaints of 3 days of nausea, vomiting and diarrhea after recent treatment for urinary tract infection with antibiotics including Flagyl. Currently symptoms are improved with patient reporting 3 loose bowel movements which are more formed than prior to admission. No abdominal pain reported. Unknown etiology, may relate to gastroenteritis, antibiotic with Flagyl having no association with symptoms, other medication or other etiology. Current Visit: Yes Status: Acute Code(s): K52.9 - NONINFECTIVE G ASTROENTERITIS AND COLITIS, UNSPECIFIED SNOMED Code(s): 38606537 (2) Sleep apnea Current Visit: No Status: Acute Code(s): G47.30 - SLEEP APNEA, UNSPECIFIED SNOMED Code(s): 12349066 (3) Adrenal insufficiency Current Visit: No Status: Chronic Code(s): E27.40 - UNSPECIFIED ADRENOCORTICAL INSUFFICIENCY SNOMED Code(s): 358465275 (4) Morbid obesity Current Visit: No Status: Chronic Code(s): E66.01 - MORBID (SEVERE) OBESITY DUE TO EXCESS CALORIES SNOMED Code(s): 020470267 Plan: Supportive care We'll advance to consistent carbohydrate, low lactose low-fat were diet today Continue to monitor stool output If symptoms worsen will order further stool studies Continue probiotic Continue Protonix therapy Continue antiemetics as needed Patient will need to have colonoscopy after discharge If symptoms continue to improve okay for discharge from gastroenterology standpoint Thank you for allowing us to participate in the care of the patient, the gastroenterology service will stand by, please call us back with any questions or concerns
[2019-01-12] MEDS: HYDROmorphone 1 MG/ML 1 ML SYRINGE IVP PRN ×7 (01:26→22:58)
[2019-01-12 07:03] LABS: Glucose,Whole Blood 278 mg/dL (75-99)
[2019-01-12] MEDS: INSULIN ASPART (NovoLOG) 100 UNIT/ML VIAL SQ SCH ×6 (08:51→22:59)
[2019-01-12] MEDS: LACTOBACILLUS ACIDOPH & BULGAR 1 EACH PACKET PO SCH ×2 (09:00→22:57)
[2019-01-12] MEDS: POTASSIUM CHLORIDE ER 10 MEQ TAB.ER.PRT PO SCH (09:00)
[2019-01-12] MEDS: PANTOPRAZOLE 40 MG/10 ML VIAL IV SCH (09:00)
[2019-01-12] MEDS: MAGNESIUM OXIDE 400 MG TAB PO SCH (09:01)
[2019-01-12] MEDS: THIAMINE 100 MG TAB PO SCH (09:01)
[2019-01-12] MEDS: ASPIRIN 81 MG PO SCH (09:01)
[2019-01-12] MEDS: SERTRALINE 100 MG TAB PO SCH (09:01)
[2019-01-12] MEDS: CHOLECALCIFEROL 1,000 UNIT TAB PO SCH (09:01)
[2019-01-12] MEDS: FERROUS SULFATE 325 MG TAB PO SCH (09:01)
[2019-01-12] MEDS: HYDROCORTISONE SUCCINATE 100 MG/2 ML VIAL IV SCH ×3 (09:01→23:05)
[2019-01-12] MEDS: LISINOPRIL 10 MG TAB PO SCH (09:01)
[2019-01-12] MEDS: amLODIPine 5 MG TAB PO SCH (09:01)
[2019-01-12] MEDS: MULTIVITAMINS, THERA LIQUID 237 ML BOTTLE PO SCH (11:48)
[2019-01-12] MEDS: FOLIC ACID 1 MG TAB PO SCH (11:49)
[2019-01-12 11:58] LABS: Glucose,Whole Blood 274 mg/dL (75-99)
--- NOTE | 2019-01-12 13:15 | P.PN ---
Subjective Progress Note Date: 01/11/19 Principal diagnosis: Diarrhea possible acute gastroenteritis. Patient is a 63-year-old female with a known history of adrenal insufficiency currently on hydrocortisone at home, occipital neuralgia, COPD, diabetes type 2, fibromyalgia, hypertension, osteoarthritis and obstructive sleep apnea with recurrent urinary tract infections came to ER by EMS with the complaints of nausea vomiting and diarrhea for the past 2-3 days. Patient states she was unable to walk around the last 2 days do to the n/v/d so she is also having an increase in neck and back pain which she normally has. Patient was also having fevers subjectively as per patient. Denied any complaints of abdominal pain. Patient was admitted to the hospital recently and was discharged on 01/03/2019. She was treated for acute urinary tract infection. Urine culture came back negative at the time. Patient was still having diarrhea. C. diff toxin was negative at that time as well. Patient was discharged home with metronidazole to complete antibiotic course. Patient came back to the hospital due to diarrhe a and loose bowels not improving. She was found to be hypotensive with blood pressure 90s she did seem to respond to 300 mL of IV fluids given by paramedics. Chest x-ray showed no acute cardiopulmonary process. WBC 9.5 01/11/2019 Patient denied any compressive chest pain or shortness of breath. No fever no chills. Urine culture is negative. Still having diarrhea but improving. Awaiting stool cultures. GI is following. C. diff toxin is negative. Patient is being continued on hydrocortisone IV and continue with insulin sliding scale and start back on home dose of insulin. Current medications reviewed. Objective - Vital Signs Vital signs: Vital Signs Temp 98.5 F 01/11/19 14:30 Pulse 64 01/11/19 14:30 Resp 16 01/11/19 14:30 BP 136/71 01/11/19 14:30 Pulse Ox 98 01/11/19 14:30 Intake & Output 01/10/19 01/11/19 01/11/19 18:59 06:59 18:59 Intake Total 600 550 Balance 600 550 Intake: Oral 600 550 Other: Voiding Method Toilet Toilet # Voids 2 2 1 - Exam PHYSICAL EXAMINATION: Patient is lying in the bed comfortably, no acute distress, awake alert and oriented.. HEENT: Normocephalic. Neck is supple. Pupils reactive. Nostrils clear. Oral cavity is moist. Ears reveal no drainage. Neck reveals no JVD, carotid bruits, or thyromegaly. CHEST EXAMINATION: Trachea is central. Symmetrical expansion. Lung hinds clear to auscultation and percussion. CARDIAC: Normal S1, S2 with no gallops. No murmurs ABDOMEN: Soft. Bowel sounds normal. No organomegaly. No abdominal bruits. Extremities: reveal no edema. No clubbing or cyanosis Neurologically awake, alert, oriented x3 with well-coordinated movements. No focal deficits noted Skin: No rash or skin lesions. Psychiatric: Coperative. Nonsuicidal Musculoskeletal: No joint swelling or deformity. Normal range of motion. - Labs CBC & Chem 7: 01/09/19 08:59 01/09/19 08:59 Labs: Abnormal Lab Results - Last 24 Hours (Table) 01/10/19 01/10/19 01/11/19 Range/Units 17:00 20:09 07:31 POC Glucose (mg/dL) 307 H 364 H 213 H (75-99) mg/dL 01/11/19 Range/Units 12:06 POC Glucose (mg/dL) 270 H (75-99) mg/dL Microbiology - Last 24 Hours (Table) 01/09/19 10:40 Urine Culture - Final Urine,Catheterized Assessment and Plan Assessment: Acute Diarrhea. Likely due to acute gastroenteritis. Ruled out C. diff infection. Patient recently completed antibiotic course with metronidazole.. Dehydration and volume depletion. Improving. Recent admission with urinary tract infection. Urine culture showed no growth. Mild hypercalcemia. 11.4 Recurrent urinary tract infections with with previous cultures includes MDRD and ESBL Diabetes type 2 insulin-dependent Chronic occipital headache secondary to degenerative joint disease. Gait instability Chronic adrenal insufficiency. On hydrocortisone at home History of hyperparathyroidism Hyperglycemia secondary to uncontrolled diabetes type 2 Fibromyalgia Osteoarthritis Obstructive sleep apnea on CPAP History of febrile gases History of remote DVT of right calf. History of back surgery History of MRSA Hypertension DVT prophylaxis Plan: Patient be continued on IV hydration. Repeat C. diff infections negative. GI was consulted for evaluation diarrhea. Continued supportive management. Continue the insulin dosing. Continue with hydrocortisone dose and home medications and pain management with Dilaudid. Continue symptomatic management for nausea and vomiting. Follow closely and further recommendations based on the clinical course. Prognosis is guarded with multiple medical problems and complex medical conditions. Time with Patient: Greater than 30
[2019-01-12 14:48] LABS: African American GFR (CKD) >90 (>60 ml/min/1.73 sqM); Anion Gap 9 mmol/L; Blood Urea Nitrogen 12 mg/dL (7-17); Calcium 9.1 mg/dL (8.4-10.2); Carbon Dioxide 25 mmol/L (22-30); Chloride 104 mmol/L (98-107); Glucose 364 mg/dL (74-99); Non-African American GFR(CKD) >90 (>60 ml/min/1.73 sqM); Potassium 3.6 mmol/L (3.5-5.1); Sodium 138 mmol/L (137-145)
[2019-01-12 14:49] LABS: Basophils % (A) 0 %; Eosinophils # (A) 0.1 k/uL (0-0.7); Eosinophils % (A) 1 %; HCT 35.6 % (34.0-46.0); Hypochromasia Slight; Lymphocytes # (A) 0.7 k/uL (1.0-4.8); Lymphocytes % (A) 9 %; MCH 27.1 pg (25.0-35.0); MCHC 31.6 g/dL (31.0-37.0); MCV 85.8 fL (80.0-100.0); Mean Platelet Volume 7.4; Monocytes # (A) 0.3 k/uL (0-1.0); Monocytes % (A) 3 %; Neutrophils # (A) 7.1 k/uL (1.3-7.7); Neutrophils % (A) 86 %; Platelet Count 226 k/uL (150-450); RBC 4.15 m/uL (3.80-5.40); RDW 14.6 % (11.5-15.5); WBC 8.2 k/uL (3.8-10.6)
[2019-01-12 14:50] LABS: HGB 11.3 gm/dL (11.4-16.0)
[2019-01-12 16:40] LABS: Glucose,Whole Blood 342 mg/dL (75-99)
[2019-01-12 20:16] LABS: Glucose,Whole Blood 182 mg/dL (75-99)
[2019-01-12] MEDS: METOPROLOL SUCCINATE (ER) 50 MG TAB.ER.24H PO SCH (22:56)
[2019-01-12 22:57] LABS: Glucose,Whole Blood 197 mg/dL (75-99)
[2019-01-12] MEDS: ATORVASTATIN 40 MG TAB PO SCH (22:57)
[2019-01-12] MEDS: INSULIN DETEMIR (LEVEMIR) 100 UNIT/ML SYR SQ SCH (23:04)
[2019-01-13] MEDS: HYDROcodone/APAP 10-325MG 1 EACH TAB PO PRN ×3 (00:45→20:57)
[2019-01-13] MEDS: HYDROmorphone 1 MG/ML 1 ML SYRINGE IVP PRN ×6 (02:26→22:04)
[2019-01-13 07:24] LABS: Glucose,Whole Blood 92 mg/dL (75-99)
[2019-01-13] MEDS: INSULIN ASPART (NovoLOG) 100 UNIT/ML VIAL SQ SCH ×7 (08:37→20:53)
[2019-01-13] MEDS: PANTOPRAZOLE 40 MG/10 ML VIAL IV SCH (08:55)
[2019-01-13] MEDS: LACTOBACILLUS ACIDOPH & BULGAR 1 EACH PACKET PO SCH ×2 (08:55→20:58)
[2019-01-13] MEDS: POTASSIUM CHLORIDE ER 10 MEQ TAB.ER.PRT PO SCH (08:56)
[2019-01-13] MEDS: ASPIRIN 81 MG PO SCH (08:56)
[2019-01-13] MEDS: FERROUS SULFATE 325 MG TAB PO SCH (08:56)
[2019-01-13] MEDS: THIAMINE 100 MG TAB PO SCH (08:57)
[2019-01-13] MEDS: MAGNESIUM OXIDE 400 MG TAB PO SCH (08:57)
[2019-01-13] MEDS: MULTIVITAMINS, THERA LIQUID 237 ML BOTTLE PO SCH (08:57)
[2019-01-13] MEDS: SERTRALINE 100 MG TAB PO SCH (08:57)
[2019-01-13] MEDS: HYDROCORTISONE SUCCINATE 100 MG/2 ML VIAL IV SCH ×3 (08:57→23:26)
[2019-01-13] MEDS: FOLIC ACID 1 MG TAB PO SCH (08:59)
[2019-01-13] MEDS: CHOLECALCIFEROL 1,000 UNIT TAB PO SCH (09:11)
[2019-01-13] MEDS: amLODIPine 5 MG TAB PO SCH (11:11)
[2019-01-13] MEDS: LISINOPRIL 10 MG TAB PO SCH (11:11)
[2019-01-13] MEDS ORDERED: HYDROCORTISONE 10 MG TAB PO SCH (12:30)
[2019-01-13 12:37] LABS: Glucose,Whole Blood 119 mg/dL (75-99)
--- NOTE | 2019-01-13 16:11 | P.PN ---
Subjective Progress Note Date: 01/12/19 Principal diagnosis: Diarrhea possible acute gastroenteritis. Patient is a 63-year-old female with a known history of adrenal insufficiency currently on hydrocortisone at home, occipital neuralgia, COPD, diabetes type 2, fibromyalgia, hypertension, osteoarthritis and obstructive sleep apnea with recurrent urinary tract infections came to ER by EMS with the complaints of nausea vomiting and diarrhea for the past 2-3 days. Patient states she was unable to walk around the last 2 days do to the n/v/d so she is also having an increase in neck and back pain which she normally has. Patient was also having fevers subjectively as per patient. Denied any complaints of abdominal pain. Patient was admitted to the hospital recently and was discharged on 01/03/2019. She was treated for acute urinary tract infection. Urine culture came back negative at the time. Patient was still having diarrhea. C. diff toxin was negative at that time as well. Patient was discharged home with metronidazole to complete antibiotic course. Patient came back to the hospital due to diarrhe a and loose bowels not improving. She was found to be hypotensive with blood pressure 90s she did seem to respond to 300 mL of IV fluids given by paramedics. Chest x-ray showed no acute cardiopulmonary process. WBC 9.5 01/11/2019 Patient denied any complaints of chest pain or shortness of breath. No fever no chills. Urine culture is negative. Still having diarrhea but improving. Awaiting stool cultures. GI is following. C. diff toxin is negative. Patient is being continued on hydrocortisone IV and continue with insulin sliding scale and start back on home dose of insulin. 01/12/2019 Patient is still having diarrhea today. Started on low fiber diet. GI is following. Leukocytosis. Blood sugar is elevated and was started back on home regimen. Continue with insulin sliding scale. No complaints of abdominal pain. No complaints of chest pain or shortness of breath. No fever no chills. Current medications reviewed. Objective - Vital Signs Vital signs: Vital Signs Temp 98 F 01/13/19 07:00 Pulse 53 L 01/13/19 08:52 Resp 14 01/13/19 07:00 BP 144/75 01/13/19 08:52 Pulse Ox 97 01/13/19 08:52 Intake & Output 01/12/19 01/13/19 01/13/19 18:59 06:59 18:59 Intake Total 360 180 Balance 360 180 Intake: Oral 360 180 Other: Voiding Method Toilet Toilet # Voids 4 2 # Bowel Movements 1 - Exam PHYSICAL EXAMINATION: Patient is lying in the bed comfortably, no acute distress, awake alert and oriented.. HEENT: Normocephalic. Neck is supple. Pupils reactive. Nostrils clear. Oral cavity is moist. Ears reveal no drainage. Neck reveals no JVD, carotid bruits, or thyromegaly. CHEST EXAMINATION: Trachea is central. Symmetrical expansion. Lung hinds clear to auscultation and percussion. CARDIAC: Normal S1, S2 with no gallops. No murmurs ABDOMEN: Soft. Bowel sounds normal. No organomegaly. No abdominal bruits. Extremities: reveal no edema. No clubbing or cyanosis Neurologically awake, alert, oriented x3 with well-coordinated movements. No focal deficits noted Skin: No rash or skin lesions. Psychiatric: Coperative. Nonsuicidal Musculoskeletal: No joint swelling or deformity. Normal range of motion. - Labs CBC & Chem 7: 01/12/19 14:14 01/12/19 14:14 Labs: Abnormal Lab Results - Last 24 Hours (Table) 01/12/19 01/12/19 01/12/19 Range/Units 16:38 20:14 22:54 POC Glucose (mg/dL) 342 H 182 H 197 H (75-99) mg/dL 01/13/19 Range/Units 12:12 POC Glucose (mg/dL) 119 H (75-99) mg/dL Assessment and Plan Assessment: Acute Diarrhea. Likely due to acute gastroenteritis. Ruled out C. diff infection. Patient recently completed antibiotic course with metronidazole.. Dehydration and volume depletion. Improving. Recent admission with urinary tract infection. Urine culture showed no growth. Mild hypercalcemia. 11.4 Recurrent urinary tract infections with with previous cultures includes MDRD and ESBL Diabetes type 2 insulin-dependent Chronic occipital headache secondary to degenerative joint disease. Gait instability Chronic adrenal insufficiency. On hydrocortisone at home History of hyperparathyroidism Hyperglycemia secondary to uncontrolled diabetes type 2 Fibromyalgia Osteoarthritis Obstructive sleep apnea on CPAP History of febrile gases History of remote DVT of right calf. History of back surgery History of MRSA Hypertension DVT prophylaxis Plan: Patient be continued on IV hydration. Repeat C. diff infections negative. GI was consulted for evaluation diarrhea. Continued supportive management. Continue the insulin dosing. Continue with hydrocortisone dose and home medications and pain management with Dilaudid. Continue symptomatic management for nausea and vomiting. Follow closely and further recommendations based on the clinical course. Prognosis is guarded with multiple medical problems and complex medical conditions. Time with Patient: Greater than 30
[2019-01-13 17:03] LABS: Glucose,Whole Blood 290 mg/dL (75-99)
[2019-01-13 20:31] LABS: Glucose,Whole Blood 169 mg/dL (75-99)
[2019-01-13] MEDS: ATORVASTATIN 40 MG TAB PO SCH (20:58)
[2019-01-13] MEDS: METOPROLOL SUCCINATE (ER) 50 MG TAB.ER.24H PO SCH (20:58)
[2019-01-13] MEDS: INSULIN DETEMIR (LEVEMIR) 100 UNIT/ML SYR SQ SCH (20:58)
--- NOTE | 2019-01-13 23:59 | P.PN ---
Subjective Progress Note Date: 01/13/19 Principal diagnosis: Diarrhea possible acute gastroenteritis. Patient is a 63-year-old female with a known history of adrenal insufficiency currently on hydrocortisone at home, occipital neuralgia, COPD, diabetes type 2, fibromyalgia, hypertension, osteoarthritis and obstructive sleep apnea with recurrent urinary tract infections came to ER by EMS with the complaints of nausea vomiting and diarrhea for the past 2-3 days. Patient states she was unable to walk around the last 2 days do to the n/v/d so she is also having an increase in neck and back pain which she normally has. Patient was also having fevers subjectively as per patient. Denied any complaints of abdominal pain. Patient was admitted to the hospital recently and was discharged on 01/03/2019. She was treated for acute urinary tract infection. Urine culture came back negative at the time. Patient was still having diarrhea. C. diff toxin was negative at that time as well. Patient was discharged home with metronidazole to complete antibiotic course. Patient came back to the hospital due to diarrhe a and loose bowels not improving. She was found to be hypotensive with blood pressure 90s she did seem to respond to 300 mL of IV fluids given by paramedics. Chest x-ray showed no acute cardiopulmonary process. WBC 9.5 01/11/2019 Patient denied any complaints of chest pain or shortness of breath. No fever no chills. Urine culture is negative. Still having diarrhea but improving. Awaiting stool cultures. GI is following. C. diff toxin is negative. Patient is being continued on hydrocortisone IV and continue with insulin sliding scale and start back on home dose of insulin. 01/12/2019 Patient is still having diarrhea today. Started on low fiber diet. GI is following. Leukocytosis. Blood sugar is elevated and was started back on home regimen. Continue with insulin sliding scale. No complaints of abdominal pain. No complaints of chest pain or shortness of breath. No fever no chills. 01/13/2019 Patient promised with this morning. Again she is having loose stools this afternoon. No complaints of abdominal pain. Continued on low fiber diet. GI is following. Blood sugar is low this morning. Continue with home insulin dose and monitor closely. Patient is tolerating oral diet. No fever no chills. No headache or dizziness or lightheadedness. Anticipate discharge with improvement in diarrhea. Current medications reviewed. Objective - Vital Signs Vital signs: Vital Signs Temp 98 F 01/13/19 07:00 Pulse 53 L 01/13/19 08:52 Resp 14 01/13/19 07:00 BP 144/75 01/13/19 08:52 Pulse Ox 97 01/13/19 08:52 Intake & Output 01/12/19 01/13/19 01/13/19 18:59 06:59 18:59 Intake Total 360 180 Balance 360 180 Intake: Oral 360 180 Other: Voiding Method Toilet Toilet # Voids 4 2 # Bowel Movements 1 - Exam PHYSICAL EXAMINATION: Patient is lying in the bed comfortably, no acute distress, awake alert and oriented.. HEENT: Normocephalic. Neck is supple. Pupils reactive. Nostrils clear. Oral cavity is moist. Ears reveal no drainage. Neck reveals no JVD, carotid bruits, or thyromegaly. CHEST EXAMINATION: Trachea is central. Symmetrical expansion. Lung hinds clear to auscultation and percussion. CARDIAC: Normal S1, S2 with no gallops. No murmurs ABDOMEN: Soft. Bowel sounds normal. No organomegaly. No abdominal bruits. Extremities: reveal no edema. No clubbing or cyanosis Neurologically awake, alert, oriented x3 with well-coordinated movements. No focal deficits noted Skin: No rash or skin lesions. Psychiatric: Coperative. Nonsuicidal Musculoskeletal: No joint swelling or deformity. Normal range of motion. - Labs CBC & Chem 7: 01/12/19 14:14 01/12/19 14:14 Labs: Abnormal Lab Results - Last 24 Hours (Table) 01/12/19 01/12/19 01/12/19 Range/Units 16:38 20:14 22:54 POC Glucose (mg/dL) 342 H 182 H 197 H (75-99) mg/dL 01/13/19 Range/Units 12:12 POC Glucose (mg/dL) 119 H (75-99) mg/dL Assessment and Plan Assessment: Acute Diarrhea. Likely due to acute gastroenteritis. Ruled out C. diff infection. Patient recently completed antibiotic course with metronidazole.. Dehydration and volume depletion. Improving. Recent admission with urinary tract infection. Urine culture showed no growth. Mild hypercalcemia. 11.4 Recurrent urinary tract infections with with previous cultures includes MDRD and ESBL Diabetes type 2 insulin-dependent Chronic occipital headache secondary to degenerative joint disease. Gait instability Chronic adrenal insufficiency. On hydrocortisone at home History of hyperparathyroidism Hyperglycemia secondary to uncontrolled diabetes type 2 Fibromyalgia Osteoarthritis Obstructive sleep apnea on CPAP History of febrile gases History of remote DVT of right calf. History of back surgery History of MRSA Hypertension DVT prophylaxis Plan: Patient be continued on IV hydration. Repeat C. diff infections negative. GI was consulted for evaluation diarrhea. Continued supportive management. started on low fiber diet. Continue the insulin dosing. Continue with hydrocortisone dose and home medications and pain management with Dilaudid. Continue symptomatic management for nausea and vomiting. Follow closely and further recommendations based on the clinical course. Prognosis is guarded with multiple medical problems and complex medical conditions. Time with Patient: Greater than 30
[2019-01-14] MEDS: HYDROmorphone 1 MG/ML 1 ML SYRINGE IVP PRN ×4 (01:03→11:30)
[2019-01-14] MEDS: INSULIN ASPART (NovoLOG) 100 UNIT/ML VIAL SQ SCH ×7 (07:34→22:38)
[2019-01-14] MEDS: CHOLECALCIFEROL 1,000 UNIT TAB PO SCH (07:53)
[2019-01-14] MEDS: amLODIPine 5 MG TAB PO SCH (07:53)
[2019-01-14] MEDS: MAGNESIUM OXIDE 400 MG TAB PO SCH (07:54)
[2019-01-14] MEDS: THIAMINE 100 MG TAB PO SCH (07:54)
[2019-01-14] MEDS: FOLIC ACID 1 MG TAB PO SCH (07:54)
[2019-01-14] MEDS: SERTRALINE 100 MG TAB PO SCH (07:54)
[2019-01-14] MEDS: LISINOPRIL 10 MG TAB PO SCH (07:54)
[2019-01-14] MEDS: PANTOPRAZOLE 40 MG/10 ML VIAL IV SCH (07:54)
[2019-01-14] MEDS: LACTOBACILLUS ACIDOPH & BULGAR 1 EACH PACKET PO SCH ×2 (07:54→22:39)
[2019-01-14] MEDS: ASPIRIN 81 MG PO SCH (07:54)
[2019-01-14] MEDS: FERROUS SULFATE 325 MG TAB PO SCH (07:54)
[2019-01-14] MEDS: HYDROCORTISONE SUCCINATE 100 MG/2 ML VIAL IV SCH ×2 (07:55→17:20)
[2019-01-14] MEDS: MULTIVITAMINS, THERA LIQUID 237 ML BOTTLE PO SCH (07:55)
[2019-01-14 08:03] LABS: Glucose,Whole Blood 94 mg/dL (75-99)
[2019-01-14] MEDS: POTASSIUM CHLORIDE ER 10 MEQ TAB.ER.PRT PO SCH (08:06)
[2019-01-14 12:03] LABS: Glucose,Whole Blood 183 mg/dL (75-99)
[2019-01-14] MEDS: HYDROcodone/APAP 10-325MG 1 EACH TAB PO PRN ×2 (14:29→19:47)
--- NOTE | 2019-01-14 16:35 | P.PN ---
Subjective Progress Note Date: 01/14/19 Principal diagnosis: Diarrhea possible acute gastroenteritis. Patient is a 63-year-old female with a known history of adrenal insufficiency currently on hydrocortisone at home, occipital neuralgia, COPD, diabetes type 2, fibromyalgia, hypertension, osteoarthritis and obstructive sleep apnea with recurrent urinary tract infections came to ER by EMS with the complaints of nausea vomiting and diarrhea for the past 2-3 days. Patient states she was unable to walk around the last 2 days do to the n/v/d so she is also having an increase in neck and back pain which she normally has. Patient was also having fevers subjectively as per patient. Denied any complaints of abdominal pain. Patient was admitted to the hospital recently and was discharged on 01/03/2019. She was treated for acute urinary tract infection. Urine culture came back negative at the time. Patient was still having diarrhea. C. diff toxin was negative at that time as well. Patient was discharged home with metronidazole to complete antibiotic course. Patient came back to the hospital due to diarrhe a and loose bowels not improving. She was found to be hypotensive with blood pressure 90s she did seem to respond to 300 mL of IV fluids given by paramedics. Chest x-ray showed no acute cardiopulmonary process. WBC 9.5 01/11/2019 Patient denied any complaints of chest pain or shortness of breath. No fever no chills. Urine culture is negative. Still having diarrhea but improving. Awaiting stool cultures. GI is following. C. diff toxin is negative. Patient is being continued on hydrocortisone IV and continue with insulin sliding scale and start back on home dose of insulin. 01/12/2019 Patient is still having diarrhea today. Started on low fiber diet. GI is following. Leukocytosis. Blood sugar is elevated and was started back on home regimen. Continue with insulin sliding scale. No complaints of abdominal pain. No complaints of chest pain or shortness of breath. No fever no chills. 01/13/2019 Patient did have formed stool with bowel movement this morning. Again she is h aving loose stools this afternoon. No complaints of abdominal pain. Continued on low fiber diet. GI is following. Blood sugar is low this morning. Continue with home insulin dose and monitor closely. Patient is tolerating oral diet. No fever no chills. No headache or dizziness or lightheadedness. Anticipate discharge with improvement in diarrhea. 01/14/2019 Patient did have formed stool today. No complaints of nausea vomiting or abdominal pain. No fever no chills. Patient will be continued on low fiber diet. Patient is complaining of left eye itching and redness with crusting. Blood sugar is fairly controlled. Hydrocortisone dose will be changed to by mouth as per home regimen. Gentle hydration. Encourage oral intake. Anticipate discharge tomorrow. Current medications reviewed. Objective - Vital Signs Vital signs: Vital Signs Temp 98.3 F 01/14/19 15:00 Pulse 55 L 01/14/19 15:00 Resp 16 01/14/19 15:00 BP 127/75 01/14/19 15:00 Pulse Ox 97 01/14/19 15:00 Intake & Output 01/13/19 01/14/19 01/14/19 18:59 06:59 18:59 Other: Voiding Method Toilet Toilet Toilet # Voids 3 3 3 - Exam PHYSICAL EXAMINATION: Patient is lying in the bed comfortably, no acute distress, awake alert and oriented.. HEENT: Normocephalic. Neck is supple. Pupils reactive. Nostrils clear. Oral cavity is moist. Ears reveal no drainage. Neck reveals no JVD, carotid bruits, or thyromegaly. CHEST EXAMINATION: Trachea is central. Symmetrical expansion. Lung hinds clear to auscultation and percussion. CARDIAC: Normal S1, S2 with no gallops. No murmurs ABDOMEN: Soft. Bowel sounds normal. No organomegaly. No abdominal bruits. Extremities: reveal no edema. No clubbing or cyanosis Neurologically awake, alert, oriented x3 with well-coordinated movements. No focal deficits noted Skin: No rash or skin lesions. Psychiatric: Coperative. Nonsuicidal Musculoskeletal: No joint swelling or deformity. Normal range of motion. - Labs CBC & Chem 7: 01/12/19 14:14 01/12/19 14:14 Labs: Abnormal Lab Results - Last 24 Hours (Table) 01/13/19 01/13/19 01/14/19 Range/Units 16:41 20:29 12:01 POC Glucose (mg/dL) 290 H 169 H 183 H (75-99) mg/dL Assessment and Plan Assessment: Acute Diarrhea. Likely due to acute gastroenteritis. Ruled out C. diff infection. Patient recently completed antibiotic course with metronidazole.. Dehydration and volume depletion. Improving. Recent admission with urinary tract infection. Urine culture showed no growth. Mild hypercalcemia. 11.4 Recurrent urinary tract infections with with previous cultures includes MDRD and ESBL Diabetes type 2 insulin-dependent Chronic occipital headache secondary to degenerative joint disease. Gait instability Chronic adrenal insufficiency. On hydrocortisone at home History of hyperparathyroidism Hyperglycemia secondary to uncontrolled diabetes type 2 Fibromyalgia Osteoarthritis Obstructive sleep apnea on CPAP History of febrile gases History of remote DVT of right calf. History of back surgery History of MRSA Hypertension DVT prophylaxis Plan: Patient be continued on IV hydration. Repeat C. diff infections negative. GI was consulted for evaluation diarrhea. Continued supportive management. started on low fiber diet. Continue the insulin dosing. Continue with hydrocortisone dose and home medications and pain management with Dilaudid. Continue symptomatic management for nausea and vomiting. Follow closely and further recommendations based on the clinical course. Prognosis is guarded with multiple medical problems and complex medical conditions. Time with Patient: Greater than 30
[2019-01-14 17:11] LABS: Glucose,Whole Blood 294 mg/dL (75-99)
[2019-01-14] MEDS: BACITRACIN/POLYMYX 500-10,000 UNIT/GM OPHTH OINT 3.5 GM TUBE LEFT EYE SCH ×2 (17:17→22:39)
[2019-01-14 21:20] LABS: Glucose,Whole Blood 134 mg/dL (75-99)
[2019-01-14] MEDS: ATORVASTATIN 40 MG TAB PO SCH (22:36)
[2019-01-14] MEDS: INSULIN DETEMIR (LEVEMIR) 100 UNIT/ML SYR SQ SCH (22:37)
[2019-01-14] MEDS: HYDROCORTISONE 10 MG TAB PO SCH (22:37)
[2019-01-14] MEDS: METOPROLOL SUCCINATE (ER) 50 MG TAB.ER.24H PO SCH (22:39)
[2019-01-15] MEDS: HYDROcodone/APAP 10-325MG 1 EACH TAB PO PRN ×4 (03:35→17:34)
[2019-01-15 07:05] LABS: Glucose,Whole Blood 94 mg/dL (75-99)
[2019-01-15] MEDS: INSULIN ASPART (NovoLOG) 100 UNIT/ML VIAL SQ SCH ×6 (07:06→20:42)
[2019-01-15] MEDS: ASPIRIN 81 MG PO SCH (08:43)
[2019-01-15] MEDS: amLODIPine 5 MG TAB PO SCH (08:43)
[2019-01-15] MEDS: POTASSIUM CHLORIDE ER 10 MEQ TAB.ER.PRT PO SCH (08:43)
[2019-01-15] MEDS: SERTRALINE 100 MG TAB PO SCH (08:43)
[2019-01-15] MEDS: THIAMINE 100 MG TAB PO SCH (08:43)
[2019-01-15] MEDS: FERROUS SULFATE 325 MG TAB PO SCH (08:44)
[2019-01-15] MEDS: CHOLECALCIFEROL 1,000 UNIT TAB PO SCH (08:44)
[2019-01-15] MEDS: PANTOPRAZOLE 40 MG TABLET PO SCH (08:44)
[2019-01-15] MEDS: MAGNESIUM OXIDE 400 MG TAB PO SCH (08:45)
[2019-01-15] MEDS: LISINOPRIL 10 MG TAB PO SCH (08:45)
[2019-01-15] MEDS: FOLIC ACID 1 MG TAB PO SCH (08:45)
[2019-01-15] MEDS: BACITRACIN/POLYMYX 500-10,000 UNIT/GM OPHTH OINT 3.5 GM TUBE LEFT EYE SCH ×3 (08:47→20:43)
[2019-01-15] MEDS: HYDROCORTISONE 10 MG TAB PO SCH ×3 (08:47→20:42)
[2019-01-15] MEDS: MULTIVITAMINS, THERA LIQUID 237 ML BOTTLE PO SCH (08:48)
[2019-01-15] MEDS: LACTOBACILLUS ACIDOPH & BULGAR 1 EACH PACKET PO SCH ×2 (08:49→20:42)
[2019-01-15] MEDS ORDERED: HYDROCORTISONE 10 MG TAB PO SCH (09:00)
[2019-01-15 11:24] LABS: Glucose,Whole Blood 120 mg/dL (75-99)
[2019-01-15] MEDS ORDERED: HYDROmorphone 0.5 MG/0.5 ML SYRINGE IVP PRN (16:38)
--- NOTE | 2019-01-15 16:39 | P.PN ---
Subjective Progress Note Date: 01/15/19 Principal diagnosis: Diarrhea possible acute gastroenteritis. Patient is a 63-year-old female with a known history of adrenal insufficiency currently on hydrocortisone at home, occipital neuralgia, COPD, diabetes type 2, fibromyalgia, hypertension, osteoarthritis and obstructive sleep apnea with recurrent urinary tract infections came to ER by EMS with the complaints of nausea vomiting and diarrhea for the past 2-3 days. Patient states she was unable to walk around the last 2 days do to the n/v/d so she is also having an increase in neck and back pain which she normally has. Patient was also having fevers subjectively as per patient. Denied any complaints of abdominal pain. Patient was admitted to the hospital recently and was discharged on 01/03/2019. She was treated for acute urinary tract infection. Urine culture came back negative at the time. Patient was still having diarrhea. C. diff toxin was negative at that time as well. Patient was discharged home with metronidazole to complete antibiotic course. Patient came back to the hospital due to diarrhe a and loose bowels not improving. She was found to be hypotensive with blood pressure 90s she did seem to respond to 300 mL of IV fluids given by paramedics. Chest x-ray showed no acute cardiopulmonary process. WBC 9.5 01/11/2019 Patient denied any complaints of chest pain or shortness of breath. No fever no chills. Urine culture is negative. Still having diarrhea but improving. Awaiting stool cultures. GI is following. C. diff toxin is negative. Patient is being continued on hydrocortisone IV and continue with insulin sliding scale and start back on home dose of insulin. 01/12/2019 Patient is still having diarrhea today. Started on low fiber diet. GI is following. Leukocytosis. Blood sugar is elevated and was started back on home regimen. Continue with insulin sliding scale. No complaints of abdominal pain. No complaints of chest pain or shortness of breath. No fever no chills. 01/13/2019 Patient did have formed stool with bowel movement this morning. Again she is h aving loose stools this afternoon. No complaints of abdominal pain. Continued on low fiber diet. GI is following. Blood sugar is low this morning. Continue with home insulin dose and monitor closely. Patient is tolerating oral diet. No fever no chills. No headache or dizziness or lightheadedness. Anticipate discharge with improvement in diarrhea. 01/14/2019 Patient did have formed stool today. No complaints of nausea vomiting or abdominal pain. No fever no chills. Patient will be continued on low fiber diet. Patient is complaining of left eye itching and redness with crusting. Blood sugar is fairly controlled. Hydrocortisone dose will be changed to by mouth as per home regimen. Gentle hydration. Encourage oral intake. Anticipate discharge tomorrow. 01/15/2019 Patient says that her diarrhea is back today. No complaints of abdominal pain. Patient also having CBG 94 this morning. Insulin dose will be adjusted. Patient is currently not on antibiotics. Patient will be continued on low fiber diet otherwise. Continue with hydrocortisone as per home dose. Continued with pain management Current medications reviewed. Objective - Vital Signs Vital signs: Vital Signs Temp 98.3 F 01/15/19 13:54 Pulse 63 01/15/19 13:54 Resp 17 01/15/19 13:54 BP 97/53 01/15/19 13:54 Pulse Ox 95 01/15/19 13:54 Intake & Output 01/14/19 01/15/19 01/15/19 18:59 06:59 18:59 Intake Total 300 500 Balance 300 500 Intake: Oral 300 500 Other: Voiding Method Toilet Toilet # Voids 3 1 3 # Bowel Movements 2 - Exam PHYSICAL EXAMINATION: Patient is lying in the bed comfortably, no acute distress, awake alert and oriented.. HEENT: Normocephalic. Neck is supple. Pupils reactive. Nostrils clear. Oral cavity is moist. Ears reveal no drainage. Neck reveals no JVD, carotid bruits, or thyromegaly. CHEST EXAMINATION: Trachea is central. Symmetrical expansion. Lung hinds clear to auscultation and percussion. CARDIAC: Normal S1, S2 with no gallops. No murmurs ABDOMEN: Soft. Bowel sounds normal. No organomegaly. No abdominal bruits. Extremities: reveal no edema. No clubbing or cyanosis Neurologically awake, alert, oriented x3 with well-coordinated movements. No focal deficits noted Skin: No rash or skin lesions. Psychiatric: Coperative. Nonsuicidal Musculoskeletal: No joint swelling or deformity. Normal range of motion. - Labs CBC & Chem 7: 01/12/19 14:14 01/12/19 14:14 Labs: Abnormal Lab Results - Last 24 Hours (Table) 01/14/19 01/14/19 01/15/19 Range/Units 17:00 21:08 11:11 POC Glucose (mg/dL) 294 H 134 H 120 H (75-99) mg/dL Assessment and Plan Assessment: Acute Diarrhea. Likely due to acute gastroenteritis. Ruled out C. diff infection. Patient recently completed antibiotic course with metronidazole.. Dehydration and volume depletion. Improving. Recent admission with urinary tract infection. Urine culture showed no growth. Mild hypercalcemia. 11.4 Recurrent urinary tract infections with with previous cultures includes MDRD and ESBL Diabetes type 2 insulin-dependent Chronic occipital headache secondary to degenerative joint disease. Gait instability Chronic adrenal insufficiency. On hydrocortisone at home History of hyperparathyroidism Hyperglycemia secondary to uncontrolled diabetes type 2 Fibromyalgia Osteoarthritis Obstructive sleep apnea on CPAP History of febrile gases History of remote DVT of right calf. History of back surgery History of MRSA Hypertension DVT prophylaxis Plan: Patient be continued on IV hydration. Repeat C. diff infections negative. GI was consulted for evaluation diarrhea. Continued supportive management. started on low fiber diet. Continue the insulin dosing. Continue with hydrocortisone dose and home medications and pain management with Dilaudid. Continue symptomatic management for nausea and vomiting. Follow closely and further recommendations based on the clinical course. Prognosis is guarded with multiple medical problems and complex medical conditions. Time with Patient: Greater than 30
[2019-01-15 17:19] LABS: Glucose,Whole Blood 314 mg/dL (75-99)
[2019-01-15] MEDS ORDERED: INSULIN ASPART (NovoLOG) 100 UNIT/ML VIAL SQ SCH (17:30)
[2019-01-15 19:19] VITALS: RESP 16
[2019-01-15 20:10] LABS: Glucose,Whole Blood 228 mg/dL (75-99)
[2019-01-15] MEDS: ATORVASTATIN 40 MG TAB PO SCH (20:42)
[2019-01-15] MEDS: METOPROLOL SUCCINATE (ER) 50 MG TAB.ER.24H PO SCH (20:45)
[2019-01-15] MEDS ORDERED: INSULIN DETEMIR (LEVEMIR) 100 UNIT/ML SYR SQ SCH (21:00)
[2019-01-16] MEDS: HYDROcodone/APAP 10-325MG 1 EACH TAB PO PRN ×3 (02:47→14:13)
[2019-01-16 07:23] LABS: Glucose,Whole Blood 152 mg/dL (75-99)
[2019-01-16] MEDS: INSULIN ASPART (NovoLOG) 100 UNIT/ML VIAL SQ SCH ×4 (07:33→12:29)
[2019-01-16] MEDS: CHOLECALCIFEROL 1,000 UNIT TAB PO SCH (07:34)
[2019-01-16] MEDS: ASPIRIN 81 MG PO SCH (08:42)
[2019-01-16] MEDS: amLODIPine 5 MG TAB PO SCH (08:42)
[2019-01-16] MEDS: FOLIC ACID 1 MG TAB PO SCH (08:42)
[2019-01-16] MEDS: FERROUS SULFATE 325 MG TAB PO SCH (08:42)
[2019-01-16] MEDS: LISINOPRIL 10 MG TAB PO SCH (08:43)
[2019-01-16] MEDS: MAGNESIUM OXIDE 400 MG TAB PO SCH (08:43)
[2019-01-16] MEDS: SERTRALINE 100 MG TAB PO SCH (08:43)
[2019-01-16] MEDS: LACTOBACILLUS ACIDOPH & BULGAR 1 EACH PACKET PO SCH (08:43)
[2019-01-16] MEDS: POTASSIUM CHLORIDE ER 10 MEQ TAB.ER.PRT PO SCH (08:43)
[2019-01-16] MEDS: PANTOPRAZOLE 40 MG TABLET PO SCH (08:43)
[2019-01-16] MEDS: THIAMINE 100 MG TAB PO SCH (08:43)
[2019-01-16] MEDS: BACITRACIN/POLYMYX 500-10,000 UNIT/GM OPHTH OINT 3.5 GM TUBE LEFT EYE SCH ×2 (08:48→16:28)
[2019-01-16] MEDS: HYDROCORTISONE 10 MG TAB PO SCH ×2 (08:48→11:39)
[2019-01-16] MEDS: MULTIVITAMINS, THERA LIQUID 237 ML BOTTLE PO SCH (08:48)
[2019-01-16 11:07] LABS: Glucose,Whole Blood 231 mg/dL (75-99)
[2019-01-16 14:53] VITALS: BP 95/58; PULSE 89; TEMP 99
--- NOTE | 2019-01-16 18:34 | P.DS ---
Providers Date of admission: 01/11/19 15:18 Expected date of discharge: 01/16/19 Attending physician: Sonia Swanson Primary care physician: Allyson Guardado MD Hospital Course: Discharge diagnosis Acute Diarrhea. Likely due to acute gastroenteritis. Ruled out C. diff infection. Patient recently completed antibiotic course with metronidazole.. Diarrhea resolved now. Dehydration and volume depletion. Improved. Recent admission with urinary tract infection. Urine culture showed no growth. Mild hypercalcemia. 11.4 Recurrent urinary tract infections with with previous cultures includes MDRD and ESBL Diabetes type 2 insulin-dependent Chronic occipital headache secondary to degenerative joint disease. Gait instability Chronic adrenal insufficiency. On hydrocortisone at home History of hyperparathyroidism Hyperglycemia secondary to uncontrolled diabetes type 2 Fibromyalgia Osteoarthritis Obstructive sleep apnea on CPAP History of febrile gases History of remote DVT of right calf. History of back surgery History of MRSA Hypertension DVT prophylaxis Next and Hospital course Patient is a 63-year-old female with a known history of adrenal insufficiency currently on hydrocortisone at home, occipital neuralgia, COPD, diabetes type 2, fibromyalgia, hypertension, osteoarthritis and obstructive sleep apnea with recurrent urinary tract infections came to ER by EMS with the complaints of nausea vomiting and diarrhea for the past 2-3 days. Patient states she was unable to walk around the last 2 days do to the n/v/d so she is also having an increase in neck and back pain which she normally has. Patient was also having fevers subjectively as per patient. Denied any complaints of abdominal pain. Patient was admitted to the hospital recently and was discharged on 01/03/2019. She was treated for acute urinary tract infection. Urine culture came back negative at the time. Patient was still having diarrhea. C. diff toxin was negative at that time as well. Patient was discharged home with metronidazole to complete antibiotic course. Patient came back to the hospital due to diarrhea and loose bowels not improving. She was found to be hypotensive with blood pressure 90s she did seem to respond to 300 mL of IV fluids given by paramedics. Chest x-ray showed no acute cardiopulmonary process. WBC 9.5 01/11/2019 Patient denied any complaints of chest pain or shortness of breath. No fever no chills. Urine culture is negative. Still having diarrhea but improving. Awaiting stool cultures. GI is following. C. diff toxin is negative. Patient is being continued on hydrocortisone IV and continue with insulin sliding scale and start back on home dose of insulin. 01/12/2019 Patient is still having diarrhea today. Started on low fiber diet. GI is following. Leukocytosis. Blood sugar is elevated and was started back on home regimen. Continue with insulin sliding scale. No complaints of abdominal pain. No complaints of chest pain or shortness of breath. No fever no chills. 01/13/2019 Patient did have formed stool with bowel movement this morning. Again she is having loose stools this afternoon. No complaints of abdominal pain. Continued on low fiber diet. GI is following. Blood sugar is low this morning. Continue with home insulin dose and monitor closely. Patient is tolerating oral diet. No fever no chills. No headache or dizziness or lightheadedness. Anticipate discharge with improvement in diarrhea. 01/14/2019 Patient did have formed stool today. No complaints of nausea vomiting or abdominal pain. No fever no chills. Patient will be continued on low fiber diet. Patient is complaining of left eye itching and redness with crusting. Blood sugar is fairly controlled. Hydrocortisone dose will be changed to by mouth as per home regimen. Gentle hydration. Encourage oral intake. Anticipate discharge tomorrow. 01/15/2019 Patient says that her diarrhea is back today. No complaints of abdominal pain. Patient also having CBG 94 this morning. Insulin dose will be adjusted. Patient is currently not on antibiotics. Patient will be continued on low fiber diet otherwise. Continue with hydrocortisone as per home dose. Continued with pain management 01/16/2019 Patient denied any complains of chest pain or shortness of. Patient did have formed stools today. No complaints of abdominal pain. Blood sugar is fairly controlled and insulin dose was adjusted. Otherwise patient is stable to be discharged home and follow with GI in the clinic as well as primary care physician. Left eye redness is resolved. PHYSICAL EXAMINATION: Patient is lying in the bed comfortably, no acute distress, awake alert and oriented.. HEENT: Normocephalic. Neck is supple. Pupils reactive. Nostrils clear. Oral cavity is moist. Ears reveal no drainage. Neck reveals no JVD, carotid bruits, or thyromegaly. CHEST EXAMINATION: Trachea is central. Symmetrical expansion. Lung hinds clear to auscultation and percussion. CARDIAC: Normal S1, S2 with no gallops. No murmurs ABDOMEN: Soft. Bowel sounds normal. No organomegaly. No abdominal bruits. Extremities: reveal no edema. No clubbing or cyanosis Neurologically awake, alert, oriented x3 with well-coordinated movements. No focal deficits noted Skin: No rash or skin lesions. Psychiatric: Coperative. Nonsuicidal Musculoskeletal: No joint swelling or deformity. Normal range of motion. Vital Signs 01/16/19 14:53 Temperature 99.0 F Pulse Rate [ 89 Pulse Oximetery ] Respiratory 16 Rate Blood Pressure 95/58 [Right Arm] O2 Sat by Pulse 91 L Oximetry Total time taken greater than 35 minutes including 18 minutes for counseling and coordination of care. Patient Condition at Discharge: Fair Plan - Discharge Summary New Discharge Prescriptions: New Pantoprazole [Protonix] 40 mg PO DAILY tablet.dr Continue Cholecalciferol [Vitamin D3 (25 Mcg = 1000 Iu)] 3,000 unit PO DAILY@0700 Ondansetron [Zofran] 4 mg PO Q6H PRN PRN Reason: Nausea And Vomiting Metoprolol Succinate (ER) [Toprol XL] 50 mg PO HS Meclizine [Antivert] 25 mg PO QID PRN PRN Reason: Vertigo Magnesium Oxide 400 mg PO QAM Hydrocortisone [Cortef] 10 mg PO AC-LUNCH Hydrocortisone [Cortef] 15 mg PO AC-BRKFST Hydrocortisone [Cortef] 5 mg PO HS Aspirin 81 mg PO DAILY #0 Budesonide [Pulmicort Flexhaler] 1 puff INHALATION RT-BID PRN PRN Reason: Shortness Of Breath Glucagon Emergency Kit 1 mg IM ONCE PRN PRN Reason: Hypoglycemia Methocarbamol [Robaxin-750] 750 mg PO TID PRN PRN Reason: Muscle Spasm Ferrous Sulfate [Iron (65 MG Elemental)] 325 mg PO DAILY Vitamin B-Complex Drops 1 drop PO BID Thiamine [Vitamin B-1] 100 mg PO DAILY Folic Acid 0.4 mg PO DAILY Multivitamins, Thera Liquid [Theragran Liquid (formulary)] 30 ml PO DAILY L.acidoph,Paracasei, B.lactis [Probiotic] 2 cap PO BID Melatonin 5 mg PO HS PRN PRN Reason: Insomnia Cranberry 300mg 300 mg PO BID Potassium 99 mg PO DAILY Lisinopril [Zestril] 10 mg PO QAM Atorvastatin [Lipitor] 40 mg PO HS #30 tab Sertraline [Zoloft] 100 mg PO QAM Prochlorperazine [Compazine] 10 mg PO Q8H PRN PRN Reason: Nausea Promethazine HCl [Phenergan Syrup] 6.25 mg PO Q6H PRN PRN Reason: ALLERGIES amLODIPine [Norvasc] 5 mg PO DAILY #30 tab HYDROcodone/APAP 10-325MG [Yale 10-325] 1 - 2 tab PO Q4-6H PRN PRN Reason: Pain Changed Insulin Glargine [Lantus] 31 unit SQ HS #0 Insulin Aspart [NovoLOG Flexpen] 12 units SQ AC-SUPPER #0 Insulin Aspart [NovoLOG Flexpen] 10 unit SQ AC-BRKFST #0 Insulin Aspart [NovoLOG Flexpen] 12 units SQ AC-LUNCH #0 Discontinued Pantoprazole [Protonix] 40 mg PO BID Discharge Medication List Cholecalciferol [Vitamin D3 (25 Mcg = 1000 Iu)] 3,000 unit PO DAILY@0700 12/01/14 [History] Ondansetron [Zofran] 4 mg PO Q6H PRN 10/12/15 [History] Metoprolol Succinate (ER) [Toprol XL] 50 mg PO HS 07/06/17 [History] Meclizine [Antivert] 25 mg PO QID PRN 11/26/17 [History] Magnesium Oxide 400 mg PO QAM 02/26/18 [History] Hydrocortisone [Cortef] 10 mg PO AC-LUNCH 05/18/18 [History] Hydrocortisone [Cortef] 15 mg PO AC-BRKFST 05/18/18 [History] Hydrocortisone [Cortef] 5 mg PO HS 06/26/18 [History] Aspirin 81 mg PO DAILY #0 07/02/18 [Rx] Budesonide [Pulmicort Flexhaler] 1 puff INHALATION RT-BID PRN 08/12/18 [History] Glucagon Emergency Kit 1 mg IM ONCE PRN 08/12/18 [History] Methocarbamol [Robaxin-750] 750 mg PO TID PRN 09/09/18 [History] Cranberry 300mg 300 mg PO BID 10/08/18 [History] Ferrous Sulfate [Iron (65 MG Elemental)] 325 mg PO DAILY 10/08/18 [History] Folic Acid 0.4 mg PO DAILY 10/08/18 [History] L.acidoph,Paracasei, B.lactis [Probiotic] 2 cap PO BID 10/08/18 [History] Melatonin 5 mg PO HS PRN 10/08/18 [History] Multivitamins, Thera Liquid [Theragran Liquid (formulary)] 30 ml PO DAILY 10/08/18 [History] Potassium 99 mg PO DAILY 10/08/18 [History] Thiamine [Vitamin B-1] 100 mg PO DAILY 10/08/18 [History] Vitamin B-Complex Drops 1 drop PO BID 10/08/18 [History] Lisinopril [Zestril] 10 mg PO QAM 11/08/18 [History] Atorvastatin [Lipitor] 40 mg PO HS #30 tab 11/16/18 [Rx] Sertraline [Zoloft] 100 mg PO QAM 11/30/18 [History] Prochlorperazine [Compazine] 10 mg PO Q8H PRN 12/08/18 [History] Promethazine HCl [Phenergan Syrup] 6.25 mg PO Q6H PRN 12/08/18 [History] amLODIPine [Norvasc] 5 mg PO DAILY #30 tab 12/13/18 [Rx] HYDROcodone/APAP 10-325MG [Yale 10-325] 1 - 2 tab PO Q4-6H PRN 12/26/18 [History] Insulin Aspart [NovoLOG Flexpen] 10 unit SQ AC-BRKFST #0 01/16/19 [Rx] Insulin Aspart [NovoLOG Flexpen] 12 units SQ AC-LUNCH #0 01/16/19 [Rx] Insulin Aspart [NovoLOG Flexpen] 12 units SQ AC-SUPPER #0 01/16/19 [Rx] Insulin Glargine [Lantus] 31 unit SQ HS #0 01/16/19 [Rx] Pantoprazole [Protonix] 40 mg PO DAILY tablet. 01/16/19 [Rx] Follow up Appointment(s)/Referral(s): Allyson Guardado MD [Primary Care Provider] - 1-2 days (office closed please call for appointment time) Patient Instructions/Handouts: Gastroenteritis (DC) Discharge Disposition: HOME SELF-CARE
== END 2019-01-16 17:02 | disposition home or self-care (01) | DRG 392 ==
LOC: EC 08:23 → 4SSUR 14:07 → OBSVTOIN 01-11 15:18
PROVIDERS: ADMIT Internal Medicine; ATTEND Internal Medicine
DX: K52.9 Noninfective gastroenteritis and colitis, unspecified (principal); E27.40 Unspecified adrenocortical insufficiency; E11.65 Type 2 diabetes mellitus with hyperglycemia; Z79.4 Long term (current) use of insulin; E66.01 Morbid (severe) obesity due to excess calories; E78.5 Hyperlipidemia, unspecified; E83.52 Hypercalcemia; Z68.27 Body mass index [BMI] 27.0-27.9, adult; E86.0 Dehydration; G47.33 Obstructive sleep apnea (adult) (pediatric); Z99.89 Dependence on other enabling machines and devices; I10 Essential (primary) hypertension; J44.9 Chronic obstructive pulmonary disease, unspecified; M19.90 Unspecified osteoarthritis, unspecified site; M54.81 Occipital neuralgia; M79.7 Fibromyalgia; R62.7 Adult failure to thrive; Z79.82 Long term (current) use of aspirin; Z79.899 Other long term (current) drug therapy; Z80.49 Family history of malignant neoplasm of other genital organs; Z82.49 Family history of ischemic heart disease and other diseases of the circulatory system; Z83.3 Family history of diabetes mellitus; Z86.14 Personal history of Methicillin resistant Staphylococcus aureus infection; Z86.718 Personal history of other venous thrombosis and embolism; Z87.440 Personal history of urinary (tract) infections; Z87.442 Personal history of urinary calculi; Z90.710 Acquired absence of both cervix and uterus; Z88.5 Allergy status to narcotic agent; Z88.0 Allergy status to penicillin; Z88.2 Allergy status to sulfonamides; Z88.8 Allergy status to other drugs, medicaments and biological substances; R26.9 Unspecified abnormalities of gait and mobility; G89.29 Other chronic pain; Z98.1 Arthrodesis status; Z98.42 Cataract extraction status, left eye; Z98.41 Cataract extraction status, right eye; Z88.1 Allergy status to other antibiotic agents
CPT/HCPCS: 36415; 71046; 80048; 80053; 81001; 82550; 83690; 83735; 84484; 85025; 87086; 87324; 96361; 96374; 96375; 99285

== ENCOUNTER 2019-01-29 11:43 | Emergency (ER) | payer MEDICARE, BC ==
[2019-01-29 11:52] VITALS: TEMP 98
[2019-01-29] MEDS ORDERED: PANTOPRAZOLE 40 MG/10 ML VIAL IVP STA (12:15)
[2019-01-29] MEDS ORDERED: SODIUM CHLORIDE 0.9% 1,000 ML IV STA (12:15)
[2019-01-29] MEDS ORDERED: ONDANSETRON 4 MG/2 ML VIAL IVP STA (12:15)
--- NOTE | 2019-01-29 12:21 | ED ---
General Adult HPI - General Chief complaint: Urogenital Stated complaint: UTI Time Seen by Provider: 01/29/19 11:50 Source: patient, EMS, RN notes reviewed Mode of arrival: EMS Limitations: no limitations - History of Present Illness Initial comments: Patient is a pleasant 68-year-old female presenting to the emergency department with continued concerns for urinary symptoms. Patient states she was in the hospital and discharged 10 days ago. Patient has been fatigued since that time. Patient is having urinary frequency and small amounts. Patient has some right- sided flank discomfort. Patient does have history of similar flank discomfort previously associated with urinary tract infections. Patient has had nausea and decreased appetite. Patient has had diarrhea sometimes 2-3 times a day. No diarrhea today. - Related Data Home Medications Medication Instructions Recorded Confirmed Cholecalciferol [Vitamin D3 (25 3,000 unit PO DAILY@0700 12/01/14 01/29/19 Mcg = 1000 Iu)] Ondansetron [Zofran] 4 mg PO Q6H PRN 10/12/15 01/29/19 Metoprolol Succinate (ER) [Toprol 50 mg PO HS 07/06/17 01/29/19 XL] Meclizine [Antivert] 25 mg PO QID PRN 11/26/17 01/29/19 Magnesium Oxide 400 mg PO QAM 02/26/18 01/29/19 Hydrocortisone [Cortef] 10 mg PO AC-LUNCH 05/18/18 01/29/19 Hydrocortisone [Cortef] 15 mg PO AC-BRKFST 05/18/18 01/29/19 Hydrocortisone [Cortef] 5 mg PO 06/26/18 01/29/19 Budesonide [Pulmicort Flexhaler] 1 puff INHALATION RT-BID PRN 08/12/18 01/29/19 Glucagon Emergency Kit 1 mg IM ONCE PRN 08/12/18 01/29/19 Methocarbamol [Robaxin-750] 750 mg PO TID PRN 09/09/18 01/29/19 Cranberry 300mg 300 mg PO BID 10/08/18 01/29/19 Ferrous Sulfate [Iron (65 MG 325 mg PO DAILY 10/08/18 01/29/19 Elemental)] Folic Acid 0.4 mg PO DAILY 10/08/18 01/29/19 L.acidoph,Paracasei, B.lactis 2 cap PO BID 10/08/18 01/29/19 [Probiotic] Melatonin 5 mg PO HS PRN 10/08/18 01/29/19 Multivitamins, Thera Liquid 30 ml PO DAILY 10/08/18 01/29/19 [Theragran Liquid (formulary)] Potassium 99 mg PO DAILY 10/08/18 01/29/19 Thiamine [Vitamin B-1] 100 mg PO DAILY 10/08/18 01/29/19 Vitamin B-Complex Drops 1 drop PO BID 10/08/18 01/29/19 Lisinopril [Zestril] 10 mg PO QAM 11/08/18 01/29/19 Sertraline [Zoloft] 100 mg PO QAM 11/30/18 01/29/19 Prochlorperazine [Compazine] 10 mg PO Q8H PRN 12/08/18 01/29/19 Promethazine HCl [Phenergan Syrup] 6.25 mg PO Q6H PRN 12/08/18 01/29/19 HYDROcodone/APAP 10-325MG [[place] 1 - 2 tab PO Q4-6H PRN 12/26/18 01/29/19 10-325] Insulin Aspart [NovoLOG Flexpen] 20 unit SQ AC-BRKFST 01/29/19 01/29/19 Insulin Aspart [NovoLOG Flexpen] 21 units SQ AC-LUNCH 01/29/19 01/29/19 Insulin Aspart [NovoLOG Flexpen] 21 units SQ AC-SUPPER 01/29/19 01/29/19 Insulin Glargine [Lantus] 32 unit SQ HS 01/29/19 01/29/19 Pantoprazole [Protonix] 40 mg PO BID 01/29/19 01/29/19 Previous Rx's Medication Instructions Recorded Aspirin 81 mg PO DAILY #0 07/02/18 Atorvastatin [Lipitor] 40 mg PO HS #30 tab 11/16/18 amLODIPine [Norvasc] 5 mg PO DAILY #30 tab 12/13/18 Nitrofurantoin Monohyd/M-Cryst 100 mg PO Q12HR #20 cap 01/29/19 [Macrobid] Allergies Allergy/AdvReac Type Severity Reaction Status Date / Time butorphanol tartrate Allergy BLISTERS Verified 01/29/19 12:23 [From Stadol] IN MOUTH ceftriaxone [From Rocephin] Allergy Unknown Verified 01/29/19 12:23 clarithromycin [From Biaxin] Allergy Rash/Hives Verified 01/29/19 12:23 codeine Allergy Rash/Hives Verified 01/29/19 12:23 ergotamine tartrate Allergy Unknown Verified 01/29/19 12:23 [From Cafergot] erythromycin base Allergy RASH, GI Verified 01/29/19 12:23 [From E-Mycin] SYMPTOMS ketorolac tromethamine Allergy Rash/Hives Verified 01/29/19 12:23 [From Toradol] liraglutide [From Victoza] Allergy Rash/Hives Verified 01/29/19 12:23 morphine Allergy Rash/Hives Verified 01/29/19 12:23 Penicillins Allergy Rash/Hives Verified 01/29/19 12:23 pentazocine lactate Allergy SEVERE Verified 01/29/19 12:23 [From Talwin] BLISTERS IN MOUTH pregabalin [From Lyrica] Allergy Rash/Hives Verified 01/29/19 12:23 propoxyphene HCl Allergy Rash/Hives Verified 01/29/19 12:23 [From Darvon] Sulfa (Sulfonamide Allergy Rash/Hives Verified 01/29/19 12:23 Antibiotics) tramadol Allergy Unknown Verified 01/29/19 12:23 monosodium glutamate [MSG] AdvReac Nausea & Verified 01/29/19 12:23 Vomiting nalbuphine HCl [From Nubain] AdvReac Nausea & Verified 01/29/19 12:23 Vomiting Review of Systems ROS Statement: Those systems with pertinent positive or pertinent negative responses have been documented in the HPI. ROS Other: All systems not noted in ROS Statement are negative. Constitutional: Denies: fever Eyes: Denies: eye pain ENT: Denies: ear pain Respiratory: Denies: cough, dyspnea Cardiovascular: Denies: chest pain Endocrine: Reports: fatigue Gastrointestinal: Reports: as per HPI, nausea Genitourinary: Reports: as per HPI Musculoskeletal: Denies: arthralgia Skin: Denies: rash Neurological: Denies: confusion Past Medical History Past Medical History: COPD, Diabetes Mellitus, Deep Vein Thrombosis (DVT), Fibromyalgia, Hyperlipidemia, Hypertension, Osteoarthritis (OA), Pneumonia, Renal Disease, Sleep Apnea/CPAP/BIPAP, Vascular Disorder Additional Past Medical History / Comment(s): Pt recently admitted to [facility] on 12/10/18 with acute [id number], L eye conjunctivitis, gait instability. 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 Past Anesthesia/Blood Transfusion Reactions: Motion Sickness Additional Past Anesthesia/Blood Transfusion Reaction / Comment(s): never recieved blood Past Psychological History: No Psychological Hx Reported Smoking Status: Never smoker Past Alcohol Use History: None Reported Past Drug Use History: None Reported - Past Family History Father Family Medical History: Coronary Artery Disease (CAD), CVA/TIA, Diabetes Mellitus, Myocardial Infarction ([place]), Pneumonia Additional Family Medical History / Comment(s): Father at the age of 78yrs from IN and pneumonia. Mother Family Medical History: Cancer Additional Family Medical History / Comment(s): Mother had uterine cancer. She recently at the age of 96yrs old. General Exam Limitations: no limitations General appearance: alert, in no apparent distress Head exam: Present: atraumatic Eye exam: Present: normal appearance ENT exam: Present: normal oropharynx Neck exam: Present: normal inspection Respiratory exam: Present: normal lung sounds bilaterally Cardiovascular Exam: Present: regular rate, normal rhythm Expanded Peripheral pulses: 2+: Radial (R), Radial (L), Dorsalis Pedis (R), Dorsalis Pedis (L) GI/Abdominal exam: Present: soft, normal bowel sounds. Absent: distended, tenderness, guarding, rebound, rigid, pulsatile mass Extremities exam: Present: normal inspection. Absent: pedal edema, calf tenderness Back exam: Present: CVA tenderness (R) (Mild) Neurological exam: Present: alert Psychiatric exam: Present: normal affect, normal mood Skin exam: Present: normal color Course Vital Signs 01/29/19 01/29/19 11:46 13:07 Temperature 98.0 F Pulse Rate 68 68 Respiratory 18 18 Rate Blood Pressure 138/93 130/89 O2 Sat by Pulse 95 95 Oximetry - Reevaluation(s) Reevaluation #1: 01/29/19 12:23 Patient states that she needs pain medication for her chronic pain including chronic headache and chronic back pain. Medical Decision Making - Medical Decision Making Patient reevaluated and resting comfortably in bed. Patient updated on results. No vomiting in the emergency department. Patient requested admission because s he just didn't feel well. Patient case was discussed in detail with Dr. tamayo, who is familiar with this patient fired her because she refused to provide her requested amount of pain medication. Case was also discussed in detail with Dr. Ashraf feels patient can be discharged. Patient is updated. Patient provided by mouth challenge. - Lab Data Result diagrams: 01/29/19 12:00 01/29/19 12:00 Lab Results 01/29/19 01/29/19 01/29/19 Range/Units 12:00 12:00 12:00 WBC 6.9 (3.8-10.6) k/uL RBC 5.17 (3.80-5.40) m/uL Hgb 14.1 (11.4-16.0) gm/dL Hct 44.1 (34.0-46.0) % MCV 85.3 (80.0-100.0) fL MCH 27.2 (25.0-35.0) pg MCHC 31.9 (31.0-37.0) g/dL RDW 15.8 H (11.5-15.5) % Plt Count 244 (150-450) k/uL Neutrophils % 59 % Lymphocytes % 30 % Monocytes % 6 % Eosinophils % 3 % Basophils % 0 % Neutrophils # 4.1 (1.3-7.7) k/uL Lymphocytes # 2.1 (1.0-4.8) k/uL Monocytes # 0.4 (0-1.0) k/uL Eosinophils # 0.2 (0-0.7) k/uL Basophils # 0.0 (0-0.2) k/uL PT (9.0-12.0) sec INR (<1.2) APTT (22.0-30.0) sec Sodium 145 (137-145) mmol/L Potassium 4.2 (3.5-5.1) mmol/L Chloride 106 (98-107) mmol/L Carbon Dioxide 25 (22-30) mmol/L Anion Gap 14 mmol/L BUN 10 (7-17) mg/dL Creatinine 0.52 (0.52-1.04) mg/dL Est GFR (CKD-EPI)AfAm >90 (>60 ml/min/1.73 sqM) Est GFR (CKD-EPI)NonAf >90 (>60 ml/min/1.73 sqM) Glucose 180 H (74-99) mg/dL Calcium 10.2 (8.4-10.2) mg/dL Total Bilirubin 1.5 H (0.2-1.3) mg/dL AST 32 (14-36) U/L ALT 10 (9-52) U/L Alkaline Phosphatase 66 (38-126) U/L Total Protein 6.4 (6.3-8.2) g/dL Albumin 3.9 (3.5-5.0) g/dL Amylase 31 (30-110) U/L Lipase 25 (23-300) U/L Urine Color Yellow Urine Appearance Cloudy H (Clear) Urine pH 6.0 (5.0-8.0) Ur Specific [place] 1.034 (1.001-1.035) Urine Protein 1+ H (Negative) Urine Glucose (UA) Negative (Negative) Urine Ketones 1+ H (Negative) Urine Blood Trace H (Negative) Urine Nitrite Positive H (Negative) Urine Bilirubin Negative (Negative) Urine Urobilinogen <2.0 (<2.0) mg/dL Ur Leukocyte Esterase Large H (Negative) Urine RBC 5 (0-5) /hpf Urine WBC >182 H (0-5) /hpf Ur Squamous Epith Cells 2 (0-4) /hpf Urine Bacteria Many H (None) /hpf Hyaline Casts 11 H (0-2) /lpf Urine Mucus Few H (None) /hpf 01/29/19 Range/Units 12:00 WBC (3.8-10.6) k/uL RBC (3.80-5.40) m/uL Hgb (11.4-16.0) gm/dL Hct (34.0-46.0) % MCV (80.0-100.0) fL MCH (25.0-35.0) pg MCHC (31.0-37.0) g/dL RDW (11.5-15.5) % Plt Count (150-450) k/uL Neutrophils % % Lymphocytes % % Monocytes % % Eosinophils % % Basophils % % Neutrophils # (1.3-7.7) k/uL Lymphocytes # (1.0-4.8) k/uL Monocytes # (0-1.0) k/uL Eosinophils # (0-0.7) k/uL Basophils # (0-0.2) k/uL PT 10.6 (9.0-12.0) sec INR 1.0 (<1.2) APTT 20.5 L (22.0-30.0) sec Sodium (137-145) mmol/L Potassium (3.5-5.1) mmol/L Chloride (98-107) mmol/L Carbon Dioxide (22-30) mmol/L Anion Gap mmol/L BUN (7-17) mg/dL Creatinine (0.52-1.04) mg/dL Est GFR (CKD-EPI)AfAm (>60 ml/min/1.73 sqM) Est GFR (CKD-EPI)NonAf (>60 ml/min/1.73 sqM) Glucose (74-99) mg/dL Calcium (8.4-10.2) mg/dL Total Bilirubin (0.2-1.3) mg/dL AST (14-36) U/L ALT (9-52) U/L Alkaline Phosphatase (38-126) U/L Total Protein (6.3-8.2) g/dL Albumin (3.5-5.0) g/dL Amylase (30-110) U/L Lipase (23-300) U/L Urine Color Urine Appearance (Clear) Urine pH (5.0-8.0) Ur Specific [place] (1.001-1.035) Urine Protein (Negative) Urine Glucose (UA) (Negative) Urine Ketones (Negative) Urine Blood (Negative) Urine Nitrite (Negative) Urine Bilirubin (Negative) Urine Urobilinogen (<2.0) mg/dL Ur Leukocyte Esterase (Negative) Urine RBC (0-5) /hpf Urine WBC (0-5) /hpf Ur Squamous Epith Cells (0-4) /hpf Urine Bacteria (None) /hpf Hyaline Casts (0-2) /lpf Urine Mucus (None) /hpf - Radiology Data Radiology results: report reviewed (Renal ultrasound reveals no acute abnormality.), image reviewed (KUB reveals no acute process.) Disposition Clinical Impression: UTI (urinary tract infection), Nausea Disposition: HOME SELF-CARE Condition: Stable Instructions (If sedation given, give patient instructions): Urinary Tract Inf ection in Women (ED) Additional Instructions: Please follow-up with primary care physician tomorrow. Return for unable to tolerate oral intake, fevers, worsening or change in pain, or any other symptoms. Your prescription has been sent to [email or web address] pharmacy Prescriptions: Nitrofurantoin Monohyd/M-Cryst [Macrobid] 100 mg PO Q12HR #20 cap Is patient prescribed a controlled substance at d/c from ED?: No Referrals: Allyson Guardado MD [Primary Care Provider] - 1-2 days Time of Disposition: 15:45
[2019-01-29] MEDS ORDERED: HYDROmorphone 0.5 MG/0.5 ML SYRINGE IVP STA (12:25)
[2019-01-29 12:41] LABS: Basophils % (A) 0 %; Eosinophils # (A) 0.2 k/uL (0-0.7); Eosinophils % (A) 3 %; HCT 44.1 % (34.0-46.0); HGB 14.1 gm/dL (11.4-16.0); Lymphocytes # (A) 2.1 k/uL (1.0-4.8); Lymphocytes % (A) 30 %; MCH 27.2 pg (25.0-35.0); MCHC 31.9 g/dL (31.0-37.0); MCV 85.3 fL (80.0-100.0); Monocytes # (A) 0.4 k/uL (0-1.0); Monocytes % (A) 6 %; Neutrophils # (A) 4.1 k/uL (1.3-7.7); Neutrophils % (A) 59 %; Platelet Count 244 k/uL (150-450); RBC 5.17 m/uL (3.80-5.40); RDW 15.8 % (11.5-15.5); WBC 6.9 k/uL (3.8-10.6)
[2019-01-29 12:45] LABS: ALT 10 U/L (9-52); AST 32 U/L (14-36); African American GFR (CKD) >90 (>60 ml/min/1.73 sqM); Albumin 3.9 g/dL (3.5-5.0); Alkaline Phosphatase 66 U/L (38-126); Amylase 31 U/L (30-110); Anion Gap 14 mmol/L; Blood Urea Nitrogen 10 mg/dL (7-17); Calcium 10.2 mg/dL (8.4-10.2); Carbon Dioxide 25 mmol/L (22-30); Chloride 106 mmol/L (98-107); Glucose 180 mg/dL (74-99); Sodium 145 mmol/L (137-145); Total Bilirubin 1.5 mg/dL (0.2-1.3); Total Protein 6.4 g/dL (6.3-8.2)
--- NOTE | 2019-01-29 12:48 | XR ---
EXAMINATION TYPE: XR KUB DATE OF EXAM: 01/29/2019 12:31 PM CLINICAL HISTORY: Right flank pain. Nausea, diarrhea. TECHNIQUE: Single supine KUB image of the abdomen is obtained. COMPARISON: None. FINDINGS: Scattered gas is seen in non-distended small bowel loops. Gas and fecal material is seen in non-distended colon. There is no visceromegaly, pneumoperitoneum, or abnormal calcification apprecia grant. Left renal calculi seen on CT dated 09/12/2018 are difficult to visualize due to overlying bowel gas. Surgical clips are seen overlying the transverse process on the right of L1. Post surgical galeana es of posterior fusion from L5-S1. IMPRESSION: Overall nonobstructive bowel gas pattern. Left renal calculi seen on CT dated 09/12/2018 are difficult to visualize due to overlying bowel gas.
[2019-01-29 13:02] LABS: Prothrombin Time 10.6 sec (9.0-12.0)
[2019-01-29 13:04] LABS: Potassium 4.2 mmol/L (3.5-5.1)
[2019-01-29 13:23] LABS: Partial Thromboplastin Time 20.5 sec (22.0-30.0)
[2019-01-29 13:43] LABS: Appearance,Urine Cloudy (Clear); Bacteria,Urine Many /hpf; Bilirubin,Urine Negative (Negative); Blood,Urine Trace (Negative); Color,Urine Yellow; Glucose,Urine (UA) Negative (Negative); Hyaline Casts,Urine 11 /lpf (0-2); Ketones,Urine 1+ (Negative); Leukocyte Esterase,Urine Large (Negative); Mucus,Urine Few /hpf; Nitrite,Urine Positive (Negative); Protein,Urine 1+ (Negative); RBC,Urine 5 /hpf (0-5); Specific Gravity,Urine 1.034 (1.001-1.035); Squamous Epithelial Cell,Urine 2 /hpf (0-4); Urobilinogen,Urine <2.0 mg/dL (<2.0)
--- NOTE | 2019-01-29 13:57 | US ---
EXAMINATION TYPE: US kidneys/renal and bladder DATE OF EXAM: 01/29/2019 COMPARISON: NONE CLINICAL HISTORY: Pain. Pain hx of renal stones. EXAM MEASUREMENTS: Right Kidney: 10.7 x 4.4 x 3.9 cm Left Kidney: 10.3 x 4.6 x 3.8 cm Right Kidney: Cystic area mid pole 2.0 x 1.8 x 2.1cm. Left Kidney: 2.0 x 2.8 x 3.4 cm medial cystic lesion. Bladder: Anechoic Bilateral Jets seen: Yes There is no evidence for hydronephrosis at this point in time. The urinary bladder is anechoic. Bila teral ureteral jets are seen. IMPRESSION: 1. No hydronephrosis nor nephrolithiasis. 2. Bilateral renal cysts.
[2019-01-29] MEDS ORDERED: HYDROCORTISONE SUCCINATE 100 MG/2 ML VIAL IV STA (15:45)
[2019-01-29 16:36] VITALS: BP 129/87; PULSE 65; RESP 16
== END 2019-01-29 16:30 | disposition home or self-care (01) ==
LOC: EC 11:43
DX: N39.0 Urinary tract infection, site not specified (principal); R11.0 Nausea; R63.0 Anorexia; J44.9 Chronic obstructive pulmonary disease, unspecified; E11.9 Type 2 diabetes mellitus without complications; I10 Essential (primary) hypertension; G47.33 Obstructive sleep apnea (adult) (pediatric); Z79.4 Long term (current) use of insulin; Z79.899 Other long term (current) drug therapy; Z88.1 Allergy status to other antibiotic agents; Z88.5 Allergy status to narcotic agent; Z88.0 Allergy status to penicillin; Z88.2 Allergy status to sulfonamides; Z88.8 Allergy status to other drugs, medicaments and biological substances; Z91.02 Food additives allergy status; Z95.5 Presence of coronary angioplasty implant and graft; Z98.2 Presence of cerebrospinal fluid drainage device; Z86.718 Personal history of other venous thrombosis and embolism
CPT/HCPCS: 36415; 80053; 82150; 83690; 85025; 85610; 85730; 81001; 87086; 87077; 87186; 74018; 76770; 99284; 96374; 96375 ×3; 96361; J1720; J2405; C9113; J1170

== ENCOUNTER 2019-01-30 12:18 | Emergency (ER) | payer MEDICARE, BC ==
[2019-01-30 12:33] VITALS: RESP 18; TEMP 97.7
--- NOTE | 2019-01-30 13:02 | ED ---
General Adult HPI - General Chief complaint: Recheck/Abnormal Lab/Rx Stated complaint: UTI/flank pain/eye infection-revisit Time Seen by Provider: 01/30/19 12:35 Source: patient Mode of arrival: ambulatory Limitations: no limitations - History of Present Illness Initial comments: Dictation was produced using [email or web address] dictation software. please excuse any grammatical, word or spelling errors. Chief Complaint: 68-year-old female multiple comorbidities presents with worsening symptoms. History of Present Illness: It is a 68-year-old female shows well-known to our emergency department for multiple visitations for a myriad of complaints. Patient was seen yesterday for chief complaint of nausea, vomiting, urinary symptoms and right flank pain. She has past medical history of ESBL. Patient was seen and evaluated in emergency department yesterday. She was discharged with prescription for Macrobid and eyedrops for conjunctivitis. Patient is discharged in stable medical condition. She returns to the emergency department today for persistent symptoms. She states that main reason for coming back as a urinary issues. The ROS documented in this emergency department record has been reviewed and confirmed by me. Those systems with pertinent positive or negative responses have been documented in the HPI. All other systems are other negative and/or noncontributory. PHYSICAL EXAM: General Impression: Alert and oriented x3, not in acute distress HEENT: Normocephalic atraumatic, extra-ocular movements intact, pupils equal and reactive to light bilaterally, mucous membranes moist. Cardiovascular: Heart regular rate and rhythm, S1&S2 audible, no murmurs, rubs or gallops Chest: Lungs clear to auscultation bilaterally, no rhonchi, no wheeze, no rales Abdomen: Bowel sounds present, abdomen soft, suprapubic abdominal tenderness, non-distended, no organomegaly Musculoskeletal: Pulses present and equal in all extremities, no peripheral edema, mild right CVA tenderness with percussion Motor: no focal deficits noted Neurological: CN II-XII grossly intact, no focal motor or sensory deficits noted Skin: Intact with no visualized rashes Psych: Normal affect and mood ED course: She is 68-year-old female was seen yesterday for multiple complaints. Her main complaint today is that she feels as though her urinary symptoms of right flank pain is getting better. As upon arrival shows heart rate of 1:30, rest of vital signs within acceptable limits. Patient's well-appearing at bedside. Laboratory evaluation obtained showing no acute processes. Patient's urinalysis is much improved. Glucose is 245. She did receive steroids yesterday. Urinalysis is 40 white blood cells compared to greater than 182. She reevaluated at bedside. She is clear for discharge. Patient notified of these results. Discussed patient case in depth with Dr. Guardado patient's primary care physician. I was told by her PCP that patient has canceled her primary care appointments the last 3 times and hasn't been seen at her PCPs office since November. Dr. Guardado is also concerned that patient has drug-seeking behavior. Patient is well-appearing at this time. She is clear for discharge. She is urged to follow-up with her primary care physician. She is advised to continue taking medications. - Related Data Home Medications Medication Instructions Recorded Confirmed Cholecalciferol [Vitamin D3 (25 3,000 unit PO DAILY@0700 12/01/14 01/30/19 Mcg = 1000 Iu)] Ondansetron [Zofran] 4 mg PO Q6H PRN 10/12/15 01/30/19 Metoprolol Succinate (ER) [Toprol 50 mg PO HS 07/06/17 01/30/19 XL] Meclizine [Antivert] 25 mg PO QID PRN 11/26/17 01/30/19 Magnesium Oxide 400 mg PO QAM 02/26/18 01/30/19 Hydrocortisone [Cortef] 10 mg PO AC-LUNCH 05/18/18 01/30/19 Hydrocortisone [Cortef] 15 mg PO AC-BRKFST 05/18/18 01/30/19 Hydrocortisone [Cortef] 5 mg PO HS 06/26/18 01/30/19 Budesonide [Pulmicort Flexhaler] 1 puff INHALATION RT-BID PRN 08/12/18 01/30/19 Glucagon Emergency Kit 1 mg IM ONCE PRN 08/12/18 01/30/19 Methocarbamol [Robaxin-750] 750 mg PO TID PRN 09/09/18 01/30/19 Cranberry 300mg 300 mg PO BID 10/08/18 01/30/19 Ferrous Sulfate [Iron (65 MG 325 mg PO DAILY 10/08/18 01/30/19 Elemental)] Folic Acid 0.4 mg PO DAILY 10/08/18 01/30/19 L.acidoph,Paracasei, B.lactis 2 cap PO BID 10/08/18 01/30/19 [Probiotic] Melatonin 5 mg PO HS PRN 10/08/18 01/30/19 Multivitamins, Thera Liquid 30 ml PO DAILY 10/08/18 01/30/19 [Theragran Liquid (formulary)] Potassium 99 mg PO DAILY 10/08/18 01/30/19 Thiamine [Vitamin B-1] 100 mg PO DAILY 10/08/18 01/30/19 Vitamin B-Complex Drops 1 drop PO BID 10/08/18 01/30/19 Lisinopril [Zestril] 10 mg PO QAM 11/08/18 01/30/19 Sertraline [Zoloft] 100 mg PO QAM 11/30/18 01/30/19 Prochlorperazine [Compazine] 10 mg PO Q8H PRN 12/08/18 01/30/19 Promethazine HCl [Phenergan Syrup] 6.25 mg PO Q6H PRN 12/08/18 01/30/19 HYDROcodone/APAP 10-325MG [[place] 1 - 2 tab PO Q4-6H PRN 12/26/18 01/30/19 10-325] Insulin Aspart [NovoLOG Flexpen] 20 unit SQ AC-BRKFST 01/29/19 01/30/19 Insulin Aspart [NovoLOG Flexpen] 21 units SQ AC-LUNCH 01/29/19 01/30/19 Insulin Aspart [NovoLOG Flexpen] 21 units SQ AC-SUPPER 01/29/19 01/30/19 Insulin Glargine [Lantus] 32 unit SQ HS 01/29/19 01/30/19 Pantoprazole [Protonix] 40 mg PO BID 01/29/19 01/30/19 Previous Rx's Medication Instructions Recorded Aspirin 81 mg PO DAILY #0 07/02/18 Atorvastatin [Lipitor] 40 mg PO HS #30 tab 11/16/18 amLODIPine [Norvasc] 5 mg PO DAILY #30 tab 12/13/18 Ciprofloxacin Ophth Soln [Cipro 1 drops BOTH EYES Q4HR #1 bottle 01/29/19 0.3% Ophth Soln] Nitrofurantoin Monohyd/M-Cryst 100 mg PO Q12HR #20 cap 01/29/19 [Macrobid] Allergies Allergy/AdvReac Type Severity Reaction Status Date / Time butorphanol tartrate Allergy BLISTERS Verified 01/30/19 12:52 [From Stadol] IN MOUTH ceftriaxone [From Rocephin] Allergy Unknown Verified 01/30/19 12:52 clarithromycin [From Biaxin] Allergy Rash/Hives Verified 01/30/19 12:52 codeine Allergy Rash/Hives Verified 01/30/19 12:52 ergotamine tartrate Allergy Unknown Verified 01/30/19 12:52 [From Cafergot] erythromycin base Allergy RASH, GI Verified 01/30/19 12:52 [From E-Mycin] SYMPTOMS ketorolac tromethamine Allergy Rash/Hives Verified 01/30/19 12:52 [From Toradol] liraglutide [From Victoza] Allergy Rash/Hives Verified 01/30/19 12:52 morphine Allergy Rash/Hives Verified 01/30/19 12:52 Penicillins Allergy Rash/Hives Verified 01/30/19 12:52 pentazocine lactate Allergy SEVERE Verified 01/30/19 12:52 [From Talwin] BLISTERS IN MOUTH pregabalin [From Lyrica] Allergy Rash/Hives Verified 01/30/19 12:52 propoxyphene HCl Allergy Rash/Hives Verified 01/30/19 12:52 [From Darvon] Sulfa (Sulfonamide Allergy Rash/Hives Verified 01/30/19 12:52 Antibiotics) tramadol Allergy Unknown Verified 01/30/19 12:52 monosodium glutamate [MSG] AdvReac Nausea & Verified 01/30/19 12:52 Vomiting nalbuphine HCl [From Nubain] AdvReac Nausea & Verified 01/30/19 12:52 Vomiting Review of Systems ROS Statement: Those systems with pertinent positive or pertinent negative responses have been documented in the HPI. ROS Other: All systems not noted in ROS Statement are negative. Past Medical History Past Medical History: COPD, Diabetes Mellitus, Deep Vein Thrombosis (DVT), Fibromyalgia, Hyperlipidemia, Hypertension, Osteoarthritis (OA), Pneumonia, Renal Disease, Sleep Apnea/CPAP/BIPAP, Vascular Disorder Additional Past Medical History / Comment(s): Pt recently admitted to [facility] on 12/10/18 with acute [id number], L eye conjunctivitis, gait instability. 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 Past Anesthesia/Blood Transfusion Reactions: Motion Sickness Additional Past Anesthesia/Blood Transfusion Reaction / Comment(s): never recieved blood Past Psychological History: No Psychological Hx Reported Smoking Status: Never smoker Past Alcohol Use History: None Reported Past Drug Use History: None Reported - Past Family History Father Family Medical History: Coronary Artery Disease (CAD), CVA/TIA, Diabetes Mellitus, Myocardial Infarction ([place]), Pneumonia Additional Family Medical History / Comment(s): Father at the age of 78yrs from [place] and pneumonia. Mother Family Medical History: Cancer Additional Family Medical History / Comment(s): Mother had uterine cancer. She recently at the age of 96yrs old. General Exam Limitations: no limitations Course Vital Signs 01/30/19 01/30/19 12:32 14:10 Temperature 97.7 F Pulse Rate 103 H 100 Respiratory 18 18 Rate Blood Pressure 125/86 143/98 O2 Sat by Pulse 99 96 Oximetry Medical Decision Making - Lab Data Result diagrams: 01/30/19 13:30 01/30/19 13:30 Lab Results 01/30/19 01/30/19 01/30/19 Range/Units 13:19 13:30 13:30 WBC 7.6 (3.8-10.6) k/uL RBC 5.59 H (3.80-5.40) m/uL Hgb 15.1 (11.4-16.0) gm/dL Hct 48.4 H (34.0-46.0) % MCV 86.6 (80.0-100.0) fL MCH 26.9 (25.0-35.0) pg MCHC 31.1 (31.0-37.0) g/dL RDW 15.0 (11.5-15.5) % Plt Count 244 (150-450) k/uL Neutrophils % 61 % Lymphocytes % 28 % Monocytes % 6 % Eosinophils % 2 % Basophils % 0 % Neutrophils # 4.7 (1.3-7.7) k/uL Lymphocytes # 2.2 (1.0-4.8) k/uL Monocytes # 0.4 (0-1.0) k/uL Eosinophils # 0.2 (0-0.7) k/uL Basophils # 0.0 (0-0.2) k/uL Hypochromasia Slight Sodium 142 (137-145) mmol/L Potassium 3.3 L (3.5-5.1) mmol/L Chloride 102 (98-107) mmol/L Carbon Dioxide 28 (22-30) mmol/L Anion Gap 12 mmol/L BUN 9 (7-17) mg/dL Creatinine 0.62 (0.52-1.04) mg/dL Est GFR (CKD-EPI)AfAm >90 (>60 ml/min/1.73 sqM) Est GFR (CKD-EPI)NonAf >90 (>60 ml/min/1.73 sqM) Glucose 245 H (74-99) mg/dL Calcium 10.8 H (8.4-10.2) mg/dL Urine Color Yellow Urine Appearance Clear (Clear) Urine pH 6.0 (5.0-8.0) Ur Specific [place] 1.022 (1.001-1.035) Urine Protein Trace H (Negative) Urine Glucose (UA) 2+ H (Negative) Urine Ketones 2+ H (Negative) Urine Blood Small H (Negative) Urine Nitrite Negative (Negative) Urine Bilirubin Negative (Negative) Urine Urobilinogen <2.0 (<2.0) mg/dL Ur Leukocyte Esterase Large H (Negative) Urine RBC 25 H (0-5) /hpf Urine WBC 40 H (0-5) /hpf Ur Squamous Epith Cells 2 (0-4) /hpf Urine Bacteria Rare H (None) /hpf Urine Mucus Occasional H (None) /hpf Disposition Clinical Impression: UTI (urinary tract infection) Disposition: HOME SELF-CARE Condition: Good Instructions (If sedation given, give patient instructions): Urinary Tract Infection in Older Adults (ED) Is patient prescribed a controlled substance at d/c from ED?: No Referrals: Allyson Guardado MD [Primary Care Provider] - 1-2 days Time of Disposition: 15:05
[2019-01-30 13:43] LABS: Appearance,Urine Clear (Clear); Bacteria,Urine Rare /hpf; Bilirubin,Urine Negative (Negative); Blood,Urine Small (Negative); Color,Urine Yellow; Glucose,Urine (UA) 2+ (Negative); Leukocyte Esterase,Urine Large (Negative); Mucus,Urine Occasional /hpf; Nitrite,Urine Negative (Negative); Protein,Urine Trace (Negative); RBC,Urine 25 /hpf (0-5); Specific Gravity,Urine 1.022 (1.001-1.035); Squamous Epithelial Cell,Urine 2 /hpf (0-4); Urobilinogen,Urine <2.0 mg/dL (<2.0)
[2019-01-30 13:44] LABS: Ketones,Urine 2+ (Negative)
[2019-01-30] MEDS ORDERED: ACETAMINOPHEN TAB 500 MG TAB PO STA (14:00)
[2019-01-30 14:05] LABS: Basophils % (A) 0 %; Eosinophils # (A) 0.2 k/uL (0-0.7); Eosinophils % (A) 2 %; HCT 48.4 % (34.0-46.0); HGB 15.1 gm/dL (11.4-16.0); Hypochromasia Slight; Lymphocytes # (A) 2.2 k/uL (1.0-4.8); Lymphocytes % (A) 28 %; MCH 26.9 pg (25.0-35.0); MCHC 31.1 g/dL (31.0-37.0); MCV 86.6 fL (80.0-100.0); Mean Platelet Volume 7.8; Monocytes # (A) 0.4 k/uL (0-1.0); Monocytes % (A) 6 %; Neutrophils # (A) 4.7 k/uL (1.3-7.7); Neutrophils % (A) 61 %; Platelet Count 244 k/uL (150-450); RBC 5.59 m/uL (3.80-5.40); WBC 7.6 k/uL (3.8-10.6)
[2019-01-30] MEDS ORDERED: SODIUM CHLORIDE 0.9% 1,000 ML IV STA (14:05)
[2019-01-30 14:11] LABS: African American GFR (CKD) >90 (>60 ml/min/1.73 sqM); Anion Gap 12 mmol/L; Blood Urea Nitrogen 9 mg/dL (7-17); Calcium 10.8 mg/dL (8.4-10.2); Carbon Dioxide 28 mmol/L (22-30); Chloride 102 mmol/L (98-107); Glucose 245 mg/dL (74-99); Potassium 3.3 mmol/L (3.5-5.1); Sodium 142 mmol/L (137-145)
[2019-01-30] MEDS ORDERED: HYDROmorphone 0.5 MG/0.5 ML SYRINGE IVP STA (14:52)
[2019-01-30] MEDS ORDERED: DEXAMETHASONE SOD PHOSPHATE 10 MG/ML 1 ML VIAL IV STA (14:53)
[2019-01-30 15:05] VITALS: BP 156/83; PULSE 89
== END 2019-01-30 15:24 | disposition home or self-care (01) ==
LOC: EC 12:18
DX: N39.0 Urinary tract infection, site not specified (principal); J44.9 Chronic obstructive pulmonary disease, unspecified; E11.9 Type 2 diabetes mellitus without complications; I10 Essential (primary) hypertension; G47.33 Obstructive sleep apnea (adult) (pediatric); Z79.4 Long term (current) use of insulin; Z79.899 Other long term (current) drug therapy; Z88.1 Allergy status to other antibiotic agents; Z88.8 Allergy status to other drugs, medicaments and biological substances; Z88.5 Allergy status to narcotic agent; Z88.0 Allergy status to penicillin; Z88.2 Allergy status to sulfonamides; Z95.5 Presence of coronary angioplasty implant and graft; Z90.89 Acquired absence of other organs; Z90.49 Acquired absence of other specified parts of digestive tract; Z86.718 Personal history of other venous thrombosis and embolism; Z87.442 Personal history of urinary calculi
CPT/HCPCS: 36415; 80048; 85025; 81001; 87086; 99284; 96374; 96375; 96361; J1100; J1170; 87077; 87186

== ENCOUNTER → 2019-02-04 | Outpatient (CLI) | payer MEDICARE, BC ==
[2019-02-04 18:48] LABS: African American GFR (CKD) 102.5 (60.0-200.0); Non-African American GFR(CKD) 88.4 (60.0-200.0)
[2019-02-04 18:57] LABS: T4, Free (Free Thyroxine) 1.2 ng/dL (0.80-1.80)
[2019-02-04 19:17] LABS: Total Volume 24 Hour,Urine 950 mL
[2019-02-04 20:32] LABS: Total Protein 24 Hour,Urine 119.7 mg/24Hr
[2019-02-04 22:21] LABS: Calcium 24 Hour,Urine 138.7 mg/24Hr (100.0-250.0)
[2019-02-05 11:00] LABS: Cortisol, Urine Free by LC-MS 176.6 ug/L; Free Cortisol 24 Hour,Urine 167.8 ug/day (<45.0)
== END | disposition home or self-care (01) ==
LOC: LABWHC1 12:20
PROVIDERS: ATTEND Internal Medicine Endocrinology, Diabetes & Metabolism
DX: E11.65 Type 2 diabetes mellitus with hyperglycemia (principal); E11.21 Type 2 diabetes mellitus with diabetic nephropathy; E27.49 Other adrenocortical insufficiency; E87.8 Other disorders of electrolyte and fluid balance, not elsewhere classified
CPT/HCPCS: 36415; 81050; 82340; 82530; 82565; 83970; 84156; 84300; 84439; 84443; 84450; 84460; 84520

== ENCOUNTER → 2019-03-08 | Outpatient (CLI) | payer MEDICARE, BC ==
[2019-03-08 18:47] LABS: African American GFR (CKD) 75.6 (60.0-200.0); Anion Gap 10.7 mmol/L (4.00-12.00); Carbon Dioxide 27.3 mmol/L (21.6-31.8); Potassium 3.7 mmol/L (3.5-5.5)
== END | disposition home or self-care (01) ==
LOC: LABWHC1 14:16
PROVIDERS: ATTEND Internal Medicine Endocrinology, Diabetes & Metabolism
DX: E11.21 Type 2 diabetes mellitus with diabetic nephropathy (principal); E11.65 Type 2 diabetes mellitus with hyperglycemia; E27.49 Other adrenocortical insufficiency; E87.8 Other disorders of electrolyte and fluid balance, not elsewhere classified; Z46.81 Encounter for fitting and adjustment of insulin pump
CPT/HCPCS: 36415; 80051; 82565; 83930; 83935; 84520

== ENCOUNTER 2019-03-12 09:58 | Inpatient (IN) | payer MEDICARE, BC ==
[2019-03-12] MEDS ORDERED: HYDROmorphone 0.5 MG/0.5 ML SYRINGE IVP STA ×2 (10:17→11:26)
[2019-03-12] MEDS ORDERED: ONDANSETRON 4 MG/2 ML VIAL IVP STA (10:17)
[2019-03-12] MEDS ORDERED: SODIUM CHLORIDE 0.9% 1,000 ML IV STA ×2 (10:17→15:51)
--- NOTE | 2019-03-12 10:21 | ED ---
Abdominal Pain HPI - General Chief Complaint: Abdominal Pain Stated Complaint: N, V Weakness Time Seen by Provider: 03/12/19 10:11 Source: patient, EMS Mode of arrival: EMS Limitations: no limitations - History of Present Illness Initial Comments: Patient is 68-year-old female presenting to emergency Department with a chief complaint of nausea vomiting. Patient reports 2 days ago she developed gradual onset of nausea vomiting. Patient reports today alone she vomited 10 times. Patient also reports yesterday she developed a fever. Patient reports the nausea vomiting is not related to oral intake. Patient does report increased urgency frequency dysuria. Patient denies any vaginal discharge or bleeding. patient also reports generalized weakness that has begun since she started vomiting.Patient denies any abdominal pain but does report back pain however she states that this is a chronic issue for her. Patient denies any chest pain or shortness of breath. Patient denies hemoptysis. - Related Data Home Medications Medication Instructions Recorded Confirmed Cholecalciferol [Vitamin D3 (25 3,000 unit PO DAILY@0700 12/01/14 03/12/19 Mcg = 1000 Iu)] Ondansetron [Zofran] 4 mg PO Q6H PRN 10/12/15 03/12/19 Metoprolol Succinate (ER) [Toprol 50 mg PO HS 07/06/17 03/12/19 XL] Meclizine [Antivert] 25 mg PO QID PRN 11/26/17 03/12/19 Magnesium Oxide 400 mg PO QAM 02/26/18 03/12/19 Hydrocortisone [Cortef] 10 mg PO AC-LUNCH 05/18/18 03/12/19 Hydrocortisone [Cortef] 15 mg PO AC-BRKFST 05/18/18 03/12/19 Hydrocortisone [Cortef] 5 mg PO HS 06/26/18 03/12/19 Budesonide [Pulmicort Flexhaler] 1 puff INHALATION RT-BID PRN 08/12/18 03/12/19 Glucagon Emergency Kit 1 mg IM ONCE PRN 08/12/18 03/12/19 Methocarbamol [Robaxin-750] 750 mg PO TID PRN 09/09/18 03/12/19 Cranberry 300mg 300 mg PO BID 10/08/18 03/12/19 Ferrous Sulfate [Iron (65 MG 325 mg PO DAILY 10/08/18 03/12/19 Elemental)] Folic Acid 0.4 mg PO DAILY 10/08/18 03/12/19 L.acidoph,Paracasei, B.lactis 2 cap PO BID 10/08/18 03/12/19 [Probiotic] Melatonin 5 mg PO HS PRN 10/08/18 03/12/19 Multivitamins, Thera Liquid 30 ml PO DAILY 10/08/18 03/12/19 [Theragran Liquid (formulary)] Potassium 99 mg PO DAILY 10/08/18 03/12/19 Thiamine [Vitamin B-1] 100 mg PO DAILY 10/08/18 03/12/19 Vitamin B-Complex Drops 1 drop PO BID 10/08/18 03/12/19 Lisinopril [Zestril] 10 mg PO QAM 11/08/18 03/12/19 Prochlorperazine [Compazine] 10 mg PO Q8H PRN 12/08/18 03/12/19 Promethazine HCl [Phenergan Syrup] 6.25 mg PO Q6H PRN 12/08/18 03/12/19 HYDROcodone/APAP 10-325MG [Jessup 1 - 2 tab PO Q4-6H PRN 12/26/18 03/12/19 10-325] Insulin Aspart [NovoLOG Flexpen] 18 unit SQ AC-BRKFST 01/29/19 03/12/19 Insulin Aspart [NovoLOG Flexpen] 18 units SQ AC-SUPPER 01/29/19 03/12/19 Insulin Aspart [NovoLOG Flexpen] 21 units SQ AC-LUNCH 01/29/19 03/12/19 Insulin Glargine [Lantus] 30 unit SQ HS 01/29/19 03/12/19 Pantoprazole [Protonix] 40 mg PO BID 01/29/19 03/12/19 Venlafaxine HCl [Effexor] 75 mg PO DAILY 03/12/19 03/12/19 Previous Rx's Medication Instructions Recorded Aspirin 81 mg PO DAILY #0 07/02/18 Atorvastatin [Lipitor] 40 mg PO HS #30 tab 11/16/18 amLODIPine [Norvasc] 5 mg PO DAILY #30 tab 12/13/18 Allergies Allergy/AdvReac Type Severity Reaction Status Date / Time butorphanol tartrate Allergy BLISTERS Verified 01/30/19 12:52 [From Stadol] IN MOUTH ceftriaxone [From Rocephin] Allergy Unknown Verified 01/30/19 12:52 clarithromycin [From Biaxin] Allergy Rash/Hives Verified 01/30/19 12:52 codeine Allergy Rash/Hives Verified 01/30/19 12:52 ergotamine tartrate Allergy Unknown Verified 01/30/19 12:52 [From Cafergot] erythromycin base Allergy RASH, GI Verified 01/30/19 12:52 [From E-Mycin] SYMPTOMS ketorolac tromethamine Allergy Rash/Hives Verified 01/30/19 12:52 [From Toradol] liraglutide [From Victoza] Allergy Rash/Hives Verified 01/30/19 12:52 morphine Allergy Rash/Hives Verified 01/30/19 12:52 Penicillins Allergy Rash/Hives Verified 01/30/19 12:52 pentazocine lactate Allergy SEVERE Verified 01/30/19 12:52 [From Talwin] BLISTERS IN MOUTH pregabalin [From Lyrica] Allergy Rash/Hives Verified 01/30/19 12:52 propoxyphene HCl Allergy Rash/Hives Verified 01/30/19 12:52 [From Darvon] Sulfa (Sulfonamide Allergy Rash/Hives Verified 01/30/19 12:52 Antibiotics) tramadol Allergy Unknown Verified 01/30/19 12:52 monosodium glutamate [MSG] AdvReac Nausea & Verified 01/30/19 12:52 Vomiting nalbuphine HCl [From Nubain] AdvReac Nausea & Verified 01/30/19 12:52 Vomiting Review of Systems ROS Statement: Those systems with pertinent positive or pertinent negative responses have been documented in the HPI. ROS Other: All systems not noted in ROS Statement are negative. Past Medical History Past Medical History: COPD, Diabetes Mellitus, Deep Vein Thrombosis (DVT), Fibromyalgia, Hyperlipidemia, Hypertension, Osteoarthritis (OA), Pneumonia, Renal Disease, Sleep Apnea/CPAP/BIPAP, Vascular Disorder Additional Past Medical History / Comment(s): Pt recently admitted to [facility] on 12/10/18 with acute [id number], L eye conjunctivitis, gait instability. 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 Past Anesthesia/Blood Transfusion Reactions: Motion Sickness Additional Past Anesthesia/Blood Transfusion Reaction / Comment(s): never recieved blood Past Psychological History: No Psychological Hx Reported Smoking Status: Never smoker Past Alcohol Use History: None Reported Past Drug Use History: None Reported - Past Family History Father Family Medical History: Coronary Artery Disease (CAD), CVA/TIA, Diabetes Mellitus, Myocardial Infarction (UT), Pneumonia Additional Family Medical History / Comment(s): Father at the age of 78yrs from UT and pneumonia. Mother Family Medical History: Cancer Additional Family Medical History / Comment(s): Mother had uterine cancer. She recently at the age of 96yrs old. General Exam Limitations: no limitations General appearance: alert, in no apparent distress Head exam: Present: atraumatic, normocephalic, normal inspection Eye exam: Present: normal appearance, PERRL, EOMI Pupils: Present: normal accommodation ENT exam: Present: normal exam, normal oropharynx, mucous membranes dry, TM's normal bilaterally, normal external ear exam Neck exam: Present: normal inspection, full ROM Respiratory exam: Present: normal lung sounds bilaterally Cardiovascular Exam: Present: normal rhythm, tachycardia, systolic murmur GI/Abdominal exam: Present: soft, normal bowel sounds. Absent: tenderness Extremities exam: Present: normal inspection, full ROM, normal capillary refill, other (+2 ulnar radial pulses bilaterally.) Back exam: Present: normal inspection, full ROM Neurological exam: Present: alert, oriented X3 Psychiatric exam: Present: normal affect, normal mood Skin exam: Present: warm, intact, normal color Course Vital Signs 03/12/19 03/12/19 03/12/19 10:03 12:30 13:31 Temperature 103 F H 102.6 F H 101.6 F H Pulse Rate 120 H 117 H 106 H Respiratory 18 18 18 Rate Blood Pressure 150/90 105/68 120/59 O2 Sat by Pulse 97 94 L 94 L Oximetry 03/12/19 15:00 Temperature 100.5 F H Pulse Rate 102 H Respiratory 18 Rate Blood Pressure 107/63 O2 Sat by Pulse 94 L Oximetry Medical Decision Making - Medical Decision Making Patient is a 68-year-old female with complicated past medical history is presenting to the emergency Department with a chief complaint of nausea, vomit ing, increased urgency, frequency and dysuria. Patient reports no symptoms 2 days ago with minimal improvement. Patient doesn't have any abdominal pain but does have bilateral flank pain. Patient also reports a fever for one day. Patient was given Tylenol and the fever was decreased to 101.6. UA is positive for infection with elevated white blood cells and positive nitrates. Considering the patient has a fever and bilateral flank pain and suspect she has pyelonephritis. Patient does have irretractable nausea vomiting. Patient will be admitted for further medical management. Patient given fluids, antiemetics, analgesia and Zosyn. The admitting physician is Dr. Tony. Case discussed with Dr. Lawrence who is in agreement with the treatment plan. - Lab Data Result diagrams: 03/12/19 10:20 03/12/19 10:20 Lab Results 03/12/19 03/12/19 03/12/19 Range/Units 10:20 10:20 10:20 WBC 12.0 H (3.8-10.6) k/uL RBC 4.88 (3.80-5.40) m/uL Hgb 13.3 (11.4-16.0) gm/dL Hct 40.7 (34.0-46.0) % MCV 83.3 (80.0-100.0) fL MCH 27.2 (25.0-35.0) pg MCHC 32.7 (31.0-37.0) g/dL RDW 15.0 (11.5-15.5) % Plt Count 157 (150-450) k/uL Neutrophils % 76 % Lymphocytes % 11 % Monocytes % 6 % Eosinophils % 2 % Basophils % 3 % Neutrophils # 9.1 H (1.3-7.7) k/uL Lymphocytes # 1.4 (1.0-4.8) k/uL Monocytes # 0.7 (0-1.0) k/uL Eosinophils # 0.2 (0-0.7) k/uL Basophils # 0.4 H (0-0.2) k/uL Sodium 136 L (137-145) mmol/L Potassium 4.0 (3.5-5.1) mmol/L Chloride 101 (98-107) mmol/L Carbon Dioxide 30 (22-30) mmol/L Anion Gap 5 mmol/L BUN 8 (7-17) mg/dL Creatinine 0.60 (0.52-1.04) mg/dL Est GFR (CKD-EPI)AfAm >90 (>60 ml/min/1.73 sqM) Est GFR (CKD-EPI)NonAf >90 (>60 ml/min/1.73 sqM) Glucose 182 H (74-99) mg/dL Plasma Lactic Acid Sudhir 2.0 (0.7-2.0) mmol/L Calcium 9.7 (8.4-10.2) mg/dL Total Bilirubin 1.8 H (0.2-1.3) mg/dL AST 26 (14-36) U/L ALT 10 (9-52) U/L Alkaline Phosphatase 67 (38-126) U/L Total Protein 6.3 (6.3-8.2) g/dL Albumin 3.7 (3.5-5.0) g/dL Amylase 36 (30-110) U/L Lipase 28 (23-300) U/L Urine Color Urine Appearance (Clear) Urine pH (5.0-8.0) Ur Specific [place] (1.001-1.035) Urine Protein (Negative) Urine Glucose (UA) (Negative) Urine Ketones (Negative) Urine Blood (Negative) Urine Nitrite (Negative) Urine Bilirubin (Negative) Urine Urobilinogen (<2.0) mg/dL Ur Leukocyte Esterase (Negative) Urine RBC (0-5) /hpf Urine WBC (0-5) /hpf Ur Squamous Epith Cells (0-4) /hpf Urine Bacteria (None) /hpf Urine Mucus (None) /hpf 03/12/19 Range/Units 12:50 WBC (3.8-10.6) k/uL RBC (3.80-5.40) m/uL Hgb (11.4-16.0) gm/dL Hct (34.0-46.0) % MCV (80.0-100.0) fL MCH (25.0-35.0) pg MCHC (31.0-37.0) g/dL RDW (11.5-15.5) % Plt Count (150-450) k/uL Neutrophils % % Lymphocytes % % Monocytes % % Eosinophils % % Basophils % % Neutrophils # (1.3-7.7) k/uL Lymphocytes # (1.0-4.8) k/uL Monocytes # (0-1.0) k/uL Eosinophils # (0-0.7) k/uL Basophils # (0-0.2) k/uL Sodium (137-145) mmol/L Potassium (3.5-5.1) mmol/L Chloride (98-107) mmol/L Carbon Dioxide (22-30) mmol/L Anion Gap mmol/L BUN (7-17) mg/dL Creatinine (0.52-1.04) mg/dL Est GFR (CKD-EPI)AfAm (>60 ml/min/1.73 sqM) Est GFR (CKD-EPI)NonAf (>60 ml/min/1.73 sqM) Glucose (74-99) mg/dL Plasma Lactic Acid Sudhir (0.7-2.0) mmol/L Calcium (8.4-10.2) mg/dL Total Bilirubin (0.2-1.3) mg/dL AST (14-36) U/L ALT (9-52) U/L Alkaline Phosphatase (38-126) U/L Total Protein (6.3-8.2) g/dL Albumin (3.5-5.0) g/dL Amylase (30-110) U/L Lipase (23-300) U/L Urine Color Light Yellow Urine Appearance Clear (Clear) Urine pH 5.5 (5.0-8.0) Ur Specific [place] 1.008 (1.001-1.035) Urine Protein Trace H (Negative) Urine Glucose (UA) Negative (Negative) Urine Ketones 1+ H (Negative) Urine Blood Trace H (Negative) Urine Nitrite Positive H (Negative) Urine Bilirubin Negative (Negative) Urine Urobilinogen <2.0 (<2.0) mg/dL Ur Leukocyte Esterase Large H (Negative) Urine RBC 5 (0-5) /hpf Urine WBC 45 H (0-5) /hpf Ur Squamous Epith Cells 1 (0-4) /hpf Urine Bacteria Occasional H (None) /hpf Urine Mucus Rare H (None) /hpf Disposition Clinical Impression: Pyelonephritis, Nausea & vomiting Disposition: ADMITTED IP TO THIS [facility] Condition: Stable Additional Instructions: Patient will be admitted Is patient prescribed a controlled substance at d/c from ED?: No Referrals: Allyson Guardado MD [Primary Care Provider] - 1-2 days Time of Disposition: 15:25
[2019-03-12 10:51] LABS: Basophils # (A) 0.4 k/uL (0-0.2); Basophils % (A) 3 %; Eosinophils # (A) 0.2 k/uL (0-0.7); Eosinophils % (A) 2 %; HCT 40.7 % (34.0-46.0); HGB 13.3 gm/dL (11.4-16.0); Lymphocytes # (A) 1.4 k/uL (1.0-4.8); Lymphocytes % (A) 11 %; MCH 27.2 pg (25.0-35.0); MCHC 32.7 g/dL (31.0-37.0); MCV 83.3 fL (80.0-100.0); Monocytes # (A) 0.7 k/uL (0-1.0); Monocytes % (A) 6 %; Neutrophils # (A) 9.1 k/uL (1.3-7.7); Neutrophils % (A) 76 %; Platelet Count 157 k/uL (150-450); RBC 4.88 m/uL (3.80-5.40)
[2019-03-12] MEDS ORDERED: ACETAMINOPHEN TAB 500 MG TAB PO STA (10:59)
--- NOTE | 2019-03-12 11:14 | XR ---
EXAMINATION TYPE: XR KUB DATE OF EXAM: 03/12/2019 10:58 AM CLINICAL HISTORY: Abdominal pain TECHNIQUE: Single supine KUB image of the abdomen is obtained. COMPARISON: 01/29/2019. FINDINGS: There is redemonstration of myositis ossificans bilaterally and injection granulomas as wel l as atherosclerosis and surgical clips in the right mid abdomen. The patient previously seen left-si ded nephrolithiasis is no longer seen radiographically. The mid courses of the ureters are obscured b y heterotopic ossification from prior lumbar spinal surgery. Lung bases are well aerated. Solitary pr ominent loop of right lower quadrant small bowel measuring up to 3.6 cm. Remainder of the small and l arge bowel appear nondilated. Air and stool are noted within the rectum. Old fracture deformities are seen of the bilateral superior and inferior pubic rami. IMPRESSION: Solitary mildly dilated right lower quadrant loop of small bowel, ileus suspected.
[2019-03-12 11:16] LABS: ALT 10 U/L (9-52); AST 26 U/L (14-36); African American GFR (CKD) >90 (>60 ml/min/1.73 sqM); Albumin 3.7 g/dL (3.5-5.0); Alkaline Phosphatase 67 U/L (38-126); Amylase 36 U/L (30-110); Anion Gap 5 mmol/L; Blood Urea Nitrogen 8 mg/dL (7-17); Calcium 9.7 mg/dL (8.4-10.2); Carbon Dioxide 30 mmol/L (22-30); Chloride 101 mmol/L (98-107); Glucose 182 mg/dL (74-99); Sodium 136 mmol/L (137-145); Total Bilirubin 1.8 mg/dL (0.2-1.3); Total Protein 6.3 g/dL (6.3-8.2)
[2019-03-12 13:26] LABS: Appearance,Urine Clear (Clear); Bacteria,Urine Occasional /hpf; Bilirubin,Urine Negative (Negative); Blood,Urine Trace (Negative); Color,Urine Light Yellow; Glucose,Urine (UA) Negative (Negative); Ketones,Urine 1+ (Negative); Leukocyte Esterase,Urine Large (Negative); Mucus,Urine Rare /hpf; Nitrite,Urine Positive (Negative); PH, Urine 5.5 (5.0-8.0); Protein,Urine Trace (Negative); RBC,Urine 5 /hpf (0-5); Specific Gravity,Urine 1.008 (1.001-1.035); Squamous Epithelial Cell,Urine 1 /hpf (0-4); Urobilinogen,Urine <2.0 mg/dL (<2.0)
[2019-03-12] MEDS ORDERED: METOCLOPRAMIDE 5 MG/ML 2 ML VIAL IVP STA (14:26)
[2019-03-12] MEDS ORDERED: LEVOFLOXACIN 500MG-D5W PMX 500 MG in DEXTROSE/WATER 1 100ML.BAG IVPB STA (14:29)
[2019-03-12] MEDS ORDERED: PIPERACILLIN-TAZOBACTAM 3.375 GM in SODIUM CHLORIDE 0.9% 100 ML IVPB STA (14:35)
[2019-03-12] MEDS ORDERED: PROCHLORPERAZINE 5 MG TAB PO PRN (14:56)
[2019-03-12] MEDS ORDERED: ONDANSETRON 4 MG/2 ML VIAL IVP PRN ×2 (14:56→15:49)
[2019-03-12] MEDS ORDERED: NALOXONE 0.4 MG/ML 1 ML VIAL IV PRN (14:56)
[2019-03-12] MEDS: SODIUM CHLORIDE 0.9% 1,000 ML IV SCH (15:07)
[2019-03-12] MEDS: HYDROmorphone 0.5 MG/0.5 ML SYRINGE IVP PRN ×3 (15:33→23:38)
--- NOTE | 2019-03-12 15:55 | P.HPIM ---
History of Present Illness H&P Date: 03/12/19 Chief Complaint: Nausea vomiting fever chills Patient is a 67-year-old female with a past medical history of occipital neuralgia, COPD, obstructive sleep apnea on CPAP, hypertension, diabetes, adrenal insufficiency, and fibromyalgia and chronic pain who presented to the ER with complaints of nausea and vomiting with subjective fevers chills or night sweats. Apparently the patient began having episodes of nausea and vomiting over the last 2-3 days with some suprapubic pain. The patient had symptoms of dysuria frequency and suprapubic tenderness and was seen by her PCP Dr. Guardado 03/06/19. 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 Patient denied any doses of the Macrodantin as yet. The patient also reports some lightheadedness, dizziness and decreased ability to keep fluids and her medications down. She denies any chest pain shortness of breath In the ER the patient had a comprehensive workup she was noted to be febrile with a white count of 12, serum sodium 136 and urinalysis positive with urine WBCs 45 positive for leuk esterase and nitrite. Review of records indicates recent ESBL E. coli growing on urine culture 03/06/19. KUB was suggestive of mild ileus. The patient was given a dose of Levaquin and Zosyn along with Reglan IV fluids and recommended for admission for ESBL UTI and sepsis Review of Systems Pertinent positive as per HPI all other review of system was eyes negative Past Medical History Past Medical History: COPD, Diabetes Mellitus, Deep Vein Thrombosis (DVT), Fibromyalgia, Hyperlipidemia, Hypertension, Osteoarthritis (OA), Pneumonia, Renal Disease, Sleep Apnea/CPAP/BIPAP, Vascular Disorder Additional Past Medical History / Comment(s): Pt recently admitted to [facility] on 12/10/18 with acute DMO-KTNG-Hyaws, L eye conjunctivitis, gait instability. 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 History of Any Multi-Drug Resistant Organisms: ESBL, MRSA Date of last positivie culture/infection: 12/08/18 ESBL/ 2010 MRSA MDRO Source:: ESBL URINE/ MRSA TOE Past Surgical History: Appendectomy, Back Surgery, Bladder Surgery, Breast Surgery, Cholecystectomy, Heart Catheterization, Hysterectomy, Orthopedic Surgery, Tonsillectomy Additional Past Surgical History / Comment(s): Lumbar fusions, bladder suspension, occipital nerve blocks, 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, R wr its/elbow nerve repair, bone removed R shoulder, 4 toe R foot amputation, bilateral feet/bunionectomies, R knee arthroscopies, R orbit decompression with ethmoidectomy and eyelid lift, EGD, colonoscopies, cystocopies, lithotripsy/stents, total hysterectomy, bilateral breast reduction, bilateral cataract removals. Past Anesthesia/Blood Transfusion Reactions: Motion Sickness Additional Past Anesthesia/Blood Transfusion Reaction / Comment(s): never recieved blood Past Psychological History: No Psychological Hx Reported Smoking Status: Never smoker Past Alcohol Use History: None Reported Past Drug Use History: None Reported - Past Family History Father Family Medical History: Coronary Artery Disease (CAD), CVA/TIA, Diabetes Mellitus, Myocardial Infarction (CO), Pneumonia Additional Family Medical History / Comment(s): Father at the age of 78yrs from CO and pneumonia. Mother Family Medical History: Cancer Additional Family Medical History / Comment(s): Mother had uterine cancer. She recently at the age of 96yrs old. Medications and Allergies Home Medications Medication Instructions Recorded Confirmed Type Cholecalciferol [Vitamin D3 (25 3,000 unit PO DAILY@0700 12/01/14 03/12/19 History Mcg = 1000 Iu)] Ondansetron [Zofran] 4 mg PO Q6H PRN 10/12/15 03/12/19 History Metoprolol Succinate (ER) [Toprol 50 mg PO HS 07/06/17 03/12/19 History XL] Meclizine [Antivert] 25 mg PO QID PRN 11/26/17 03/12/19 History Magnesium Oxide 400 mg PO QAM 02/26/18 03/12/19 History Hydrocortisone [Cortef] 10 mg PO AC-LUNCH 05/18/18 03/12/19 History Hydrocortisone [Cortef] 15 mg PO AC-BRKFST 05/18/18 03/12/19 History Hydrocortisone [Cortef] 5 mg PO HS 06/26/18 03/12/19 History Aspirin 81 mg PO DAILY #0 07/02/18 03/12/19 Rx Budesonide [Pulmicort Flexhaler] 1 puff INHALATION RT-BID PRN 08/12/18 03/12/19 History Glucagon Emergency Kit 1 mg IM ONCE PRN 08/12/18 03/12/19 History Methocarbamol [Robaxin-750] 750 mg PO TID PRN 09/09/18 03/12/19 History Cranberry 300mg 300 mg PO BID 10/08/18 03/12/19 History Ferrous Sulfate [Iron (65 MG 325 mg PO DAILY 10/08/18 03/12/19 History Elemental)] Folic Acid 0.4 mg PO DAILY 10/08/18 03/12/19 History L.acidoph,Paracasei, B.lactis 2 cap PO BID 10/08/18 03/12/19 History [Probiotic] Melatonin 5 mg PO HS PRN 10/08/18 03/12/19 History Multivitamins, Thera Liquid 30 ml PO DAILY 10/08/18 03/12/19 History [Theragran Liquid (formulary)] Potassium 99 mg PO DAILY 10/08/18 03/12/19 History Thiamine [Vitamin B-1] 100 mg PO DAILY 10/08/18 03/12/19 History Vitamin B-Complex Drops 1 drop PO BID 10/08/18 03/12/19 History Lisinopril [Zestril] 10 mg PO QAM 11/08/18 03/12/19 History Atorvastatin [Lipitor] 40 mg PO HS #30 tab 11/16/18 03/12/19 Rx Prochlorperazine [Compazine] 10 mg PO Q8H PRN 12/08/18 03/12/19 History Promethazine HCl [Phenergan Syrup] 6.25 mg PO Q6H PRN 12/08/18 03/12/19 History amLODIPine [Norvasc] 5 mg PO DAILY #30 tab 12/13/18 03/12/19 Rx HYDROcodone/APAP 10-325MG [Sprague 1 - 2 tab PO Q4-6H PRN 12/26/18 03/12/19 H istory 10-325] Insulin Aspart [NovoLOG Flexpen] 18 unit SQ AC-BRKFST 01/29/19 03/12/19 History Insulin Aspart [NovoLOG Flexpen] 18 units SQ AC-SUPPER 01/29/19 03/12/19 History Insulin Aspart [NovoLOG Flexpen] 21 units SQ AC-LUNCH 01/29/19 03/12/19 History Insulin Glargine [Lantus] 30 unit SQ HS 01/29/19 03/12/19 History Pantoprazole [Protonix] 40 mg PO BID 01/29/19 03/12/19 History Venlafaxine HCl [Effexor] 75 mg PO DAILY 03/12/19 03/12/19 History Allergies Allergy/AdvReac Type Severity Reaction Status Date / Time butorphanol tartrate Allergy BLISTERS Verified 01/30/19 12:52 [From Stadol] IN MOUTH ceftriaxone [From Rocephin] Allergy Unknown Verified 01/30/19 12:52 clarithromycin [From Biaxin] Allergy Rash/Hives Verified 01/30/19 12:52 codeine Allergy Rash/Hives Verified 01/30/19 12:52 ergotamine tartrate Allergy Unknown Verified 01/30/19 12:52 [From Cafergot] erythromycin base Allergy RASH, GI Verified 01/30/19 12:52 [From E-Mycin] SYMPTOMS ketorolac tromethamine Allergy Rash/Hives Verified 01/30/19 12:52 [From Toradol] liraglutide [From Victoza] Allergy Rash/Hives Verified 01/30/19 12:52 morphine Allergy Rash/Hives Verified 01/30/19 12:52 Penicillins Allergy Rash/Hives Verified 01/30/19 12:52 pentazocine lactate Allergy SEVERE Verified 01/30/19 12:52 [From Talwin] BLISTERS IN MOUTH pregabalin [From Lyrica] Allergy Rash/Hives Verified 01/30/19 12:52 propoxyphene HCl Allergy Rash/Hives Verified 01/30/19 12:52 [From Darvon] Sulfa (Sulfonamide Allergy Rash/Hives Verified 01/30/19 12:52 Antibiotics) tramadol Allergy Unknown Verified 01/30/19 12:52 monosodium glutamate [MSG] AdvReac Nausea & Verified 01/30/19 12:52 Vomiting nalbuphine HCl [From Nubain] AdvReac Nausea & Verified 01/30/19 12:52 Vomiting Physical Exam Vitals: Vital Signs Temp Pulse Resp BP Pulse Ox 03/12/19 15:00 100.5 F H 102 H 18 107/63 94 L 03/12/19 13:31 101.6 F H 106 H 18 120/59 94 L 03/12/19 12:30 102.6 F H 117 H 18 105/68 94 L 03/12/19 10:03 103 F H 120 H 18 150/90 97 Intake and Output 03/12/19 03/12/19 03/12/19 06:59 14:59 22:59 Other: Weight 63.503 kg Constitutional: No acute distress, conversant, pleasant Eyes: Anicteric sclerae, moist conjunctiva, no lid-lag, PERRLA ENMT: NC/AT,Oropharynx clear, no erythema, exudates Neck:Supple, FROM, no masses, or JVD, No carotid bruits; No thyromegaly Lungs: Clear to auscultation, Clear to percussion, Normal respiratory effort, no accessory muscle use Cardiovascular: Heart regular in rate and rhythm, No murmurs, gallops, or rubs no peripheral edema Abdominal: Soft TTP in suprapubic area, ? CVA tenderness L, nom distended, no guarding, no rebound or rigidity, Normoactive bowel sounds No hepatomegaly, No splenomegaly, No palpable mass No abdominal wall hernia noted Skin: Normal temperature, tone, texture, turgor, No induration No subcutaneous nodules, No rash, lesions, No ulcers Extremities:No digital cyanosis No clubbing, Pedal pulses intact and symmetrical Radial pulses intact and symmetrical Normal gait and station, No calf tenderness Psychiatric: Alert and oriented to person, place and time, Appropriate affect Intact judgement Neuro: Muscles Strength 5/5 in all 4 extremities, Sensation to light touch grossly present throughout, Cranial nerves II-XII grossly intact. No focal sensory deficits Results CBC & Chem 7: 03/12/19 10:20 03/12/19 10:20 Labs: Abnormal Lab Results - Last 24 Hours (Table) 03/12/19 03/12/19 03/12/19 Range/Units 10:20 10:20 12:50 WBC 12.0 H (3.8-10.6) k/uL Neutrophils # 9.1 H (1.3-7.7) k/uL Basophils # 0.4 H (0-0.2) k/uL Sodium 136 L (137-145) mmol/L Glucose 182 H (74-99) mg/dL Total Bilirubin 1.8 H (0.2-1.3) mg/dL Urine Protein Trace H (Negative) Urine Ketones 1+ H (Negative) Urine Blood Trace H (Negative) Urine Nitrite Positive H (Negative) Ur Leukocyte Esterase Large H (Negative) Urine WBC 45 H (0-5) /hpf Urine Bacteria Occasional H (None) /hpf Urine Mucus Rare H (None) /hpf Assessment and Plan Assessment: Chronic medical conditions Essential hypertension COPD Hyperlipidemia Osteoarthritis ELIZABET on CPAP Fibromyalgia Chronic pain (1) Sepsis Current Visit: Yes Status: Acute Code(s): A41.9 - SEPSIS, UNSPECIFIED ORGANISM SNOMED Code(s): 66247841 (2) UTI due to extended-spectrum beta lactamase (ESBL) producing Escherichia coli Current Visit: Yes Status: Acute Code(s): N39.0 - URINARY TRACT INFECTION, SITE NOT SPECIFIED; B96.29 - OTH ESCHERICHIA COLI THE CAUSE OF DISEASES CLASSD ELSWHR; Z16.12 - EXTENDED SPECTRUM BETA LACTAMASE (ESBL) RESISTANCE SNOMED Code(s): 922096957 (3) Intractable nausea and vomiting Current Visit: Yes Status: Acute Code(s): R11.2 - NAUSEA WITH VOMITING, UNSPECIFIED SNOMED Code(s): 516646610 (4) DM type 2 (diabetes mellitus, type 2) Current Visit: No Status: Chronic Code(s): E11.9 - TYPE 2 DIABETES MELLITUS WITHOUT COMPLICATIONS SNOMED Code(s): 28106217 (5) Generalized weakness Current Visit: No Status: Acute Code(s): R53.1 - WEAKNESS SNOMED Code(s): 80969950 Plan: Patient is admitted anticipated greater than 2 midnight stay with sepsis secondary to ESBL UTI after presenting with intractable nausea vomiting suprapubic pain, fevers and elevated white count of 12. Patient was initially tachycardic and received a liter of fluids, we'll repeat her 1 L normal saline bolus and continue maintenance fluids at 100 mL an hour. Review of records indicate ESBL sensitive to Zosyn so we'll continue Zosyn and consult infectious diseases for further recommendations. Will order CT abdomen and pelvis as this may be also pyelonephritis and to get better visualization of the bowel as initial KUB did show mildly dilated right lower quadrant loop of small bowel with ileus suspected. We'll continue supportive regimen with Dilaudid, Zofran, nothing by mouth except meds. We'll check A1c, Accu-Cheks with correctional scale insulin coverage. We'll continue to follow patient's clinical course. CODE STATUS: Full code Discussed plan of care with: Rashid and the patient Anticipated discharge: 2-[address]: Home Prophylaxis: SCDs and heparin Time with Patient: Greater than 30
--- NOTE | 2019-03-12 17:08 | CT ---
EXAMINATION TYPE: CT abdomen pelvis wo con DATE OF EXAM: 03/12/2019 COMPARISON: 11/10/2018 HISTORY: 68-year-old female Patient having irretractable nausea and vomiting CT DLP: 659.2 mGycm. Automated exposure control for dose reduction was used. TECHNIQUE: Contiguous axial scanning of the abdomen and pelvis without IV contrast. Coronal and sagit genaro reconstructions performed. FINDINGS: Heart upper limits of normal in size with trace pericardial thickening/fluid. Strandy bibasilar areas of atelectasis or scarring. No pleural effusion. Tiny hiatal hernia. Noncontrast appearance of the liver, adrenal glands, spleen, and pancreas shows no gross abnormality. Stable hypodense lesions within the kidneys measuring 1.9 cm on the right and 2.9 cm on the left sugg estive of cysts. Nonobstructive 4 mm in punctate 2 mm calculi left kidney. No hydronephrosis on eithe r side. However, there is mild fat stranding along the left renal collecting system and upper left ur eter. Given the presence of mild perinephric edema, this may reflect the same process. No dilated small bowel, free fluid, or free air. No mesenteric or retroperitoneal lymphadenopathy. There is mild circumferential wall thickening at the cecum near the ileocecal junction and suggestion of mild surrounding fat stranding, refer to axial images 84 through 87. No significant stool burden. Bladder is collapsed but shows surrounding fat stranding. Multiple pelvic phleboliths. Pelvic floor r elaxation. Uterus surgically absent. Neither ovary visualized. No abnormal fluid collection in the pe lvis or pelvic lymphadenopathy. Bones: Old healed fracture deformities of the superior and inferior pubic rami. Posterior fusion hard fuentes from L3 through S1 levels with corresponding laminectomies. IMPRESSION: 1. Questionable findings include fat stranding around the left renal collecting system and upper lef t ureter. Given additional wall thickening and surrounding fat stranding at the bladder as well, caroline elate to exclude UTI and ascending urinary tract infection. 2. Additional mild circumferential wall thickening at the cecum near the ileocecal junction could re present a nonspecific mild colitis. Correlate with direct visualization if routine screening colonosc opies are not being performed. 3. Nonobstructive left renal calculi measuring up to 4 mm. 4. Pelvic floor relaxation. Old healed fracture deformities of the superior and inferior pubic rami.
[2019-03-12 21:13] LABS: Glucose,Whole Blood 135 mg/dL (75-99)
[2019-03-12 22:14] LABS: Glucose,Whole Blood 122 mg/dL (75-99)
[2019-03-12] MEDS: PANTOPRAZOLE 40 MG TABLET PO SCH (22:15)
[2019-03-12] MEDS: METOPROLOL SUCCINATE (ER) 50 MG TAB.ER.24H PO SCH (22:15)
[2019-03-12] MEDS: HEPARIN SODIUM,PORCINE 5,000 UNIT/ML 1 ML VIAL SQ SCH (22:16)
[2019-03-12] MEDS: INSULIN DETEMIR (LEVEMIR) 100 UNIT/ML SYR SQ SCH ×2 (22:16→23:15)
[2019-03-12] MEDS: HYDROCORTISONE 10 MG TAB PO SCH (22:18)
[2019-03-12] MEDS ORDERED: ACETAMINOPHEN TAB 325 MG TAB PO PRN (22:48)
--- NOTE | 2019-03-12 23:40 | P.CONS ---
History of Present Illness - Reason for Consult Consult date: 03/12/19 urinary tract infection with sepsis Requesting physician: David Adan - Chief Complaint Nausea vomiting urinary burning 2 days - History of Present Illness patient is a 68-year-old female with a past medical history significant for recurrent urinary tract infection patient presented to [facility] ER with a chief complaints of nausea and vomiting that has been going on for the last 2 days, patient has been complaining of urinary burning frequency urgency and some suprapubic discomfort and also complaining of pain in left flank area more of a dull aching 3-4 out of 10 and no radiation patient be complainr with rigors and chills, with the symptom the patient was evaluated by the ER physician patient did have a fever of 103F she was tachycardic and did have elevated white count positive UA CT of abdominal pelvis with left perinephric stranding she has been diagnosed with left-sided pyelonephritis with multiple antibiotic ALLERG she was started on Zosyn and infectious disease was consult for further recommendation regarding antibiotic therapy Review of Systems Positive points has been mentioned in HPI rest of the systems are negative Past Medical History Past Medical History: COPD, Diabetes Mellitus, Deep Vein Thrombosis (DVT), Fibromyalgia, Hyperlipidemia, Hypertension, Osteoarthritis (OA), Pneumonia, Renal Disease, Sleep Apnea/CPAP/BIPAP, Vascular Disorder Additional Past Medical History / Comment(s): Pt recently admitted to [facility] on 12/10/18 with acute [id number], L eye conjunctivitis, gait instability. 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 Past Anesthesia/Blood Transfusion Reactions: Motion Sickness Additional Past Anesthesia/Blood Transfusion Reaction / Comm: never recieved bl ood Past Psychological History: No Psychological Hx Reported Smoking Status: Never smoker Past Alcohol Use History: None Reported Past Drug Use History: None Reported - Past Family History Father Family Medical History: Coronary Artery Disease (CAD), CVA/TIA, Diabetes Mellitus, Myocardial Infarction (HI), Pneumonia Additional Family Medical History / Comment(s): Father at the age of 78yrs from HI and pneumonia. Mother Family Medical History: Cancer Additional Family Medical History / Comment(s): Mother had uterine cancer. She recently at the age of 96yrs old. Medications and Allergies Home Medications Medication Instructions Recorded Confirmed Type Cholecalciferol [Vitamin D3 (25 3,000 unit PO DAILY@0700 12/01/14 03/12/19 History Mcg = 1000 Iu)] Ondansetron [Zofran] 4 mg PO Q6H PRN 10/12/15 03/12/19 History Metoprolol Succinate (ER) [Toprol 50 mg PO HS 07/06/17 03/12/19 History XL] Meclizine [Antivert] 25 mg PO QID PRN 11/26/17 03/12/19 History Magnesium Oxide 400 mg PO QAM 02/26/18 03/12/19 History Hydrocortisone [Cortef] 10 mg PO AC-LUNCH 05/18/18 03/12/19 History Hydrocortisone [Cortef] 15 mg PO AC-BRKFST 05/18/18 03/12/19 History Hydrocortisone [Cortef] 5 mg PO HS 06/26/18 03/12/19 History Aspirin 81 mg PO DAILY #0 07/02/18 03/12/19 Rx Budesonide [Pulmicort Flexhaler] 1 puff INHALATION RT-BID PRN 08/12/18 03/12/19 History Glucagon Emergency Kit 1 mg IM ONCE PRN 08/12/18 03/12/19 History Methocarbamol [Robaxin-750] 750 mg PO TID PRN 09/09/18 03/12/19 History Cranberry 300mg 300 mg PO BID 10/08/18 03/12/19 History Ferrous Sulfate [Iron (65 MG 325 mg PO DAILY 10/08/18 03/12/19 History Elemental)] Folic Acid 0.4 mg PO DAILY 10/08/18 03/12/19 History L.acidoph,Paracasei, B.lactis 2 cap PO BID 10/08/18 03/12/19 History [Probiotic] Melatonin 5 mg PO HS PRN 10/08/18 03/12/19 History Multivitamins, Thera Liquid 30 ml PO DAILY 10/08/18 03/12/19 History [Theragran Liquid (formulary)] Potassium 99 mg PO DAILY 10/08/18 03/12/19 History Thiamine [Vitamin B-1] 100 mg PO DAILY 10/08/18 03/12/19 History Vitamin B-Complex Drops 1 drop PO BID 10/08/18 03/12/19 History Lisinopril [Zestril] 10 mg PO QAM 11/08/18 03/12/19 History Atorvastatin [Lipitor] 40 mg PO HS #30 tab 11/16/18 03/12/19 Rx Prochlorperazine [Compazine] 10 mg PO Q8H PRN 12/08/18 03/12/19 History Promethazine HCl [Phenergan Syrup] 6.25 mg PO Q6H PRN 12/08/18 03/12/19 History amLODIPine [Norvasc] 5 mg PO DAILY #30 tab 12/13/18 03/12/19 Rx HYDROcodone/APAP 10-325MG [Mobile 1 - 2 tab PO Q4-6H PRN 12/26/18 03/12/19 History 10-325] Insulin Aspart [NovoLOG Flexpen] 18 unit SQ AC-BRKFST 01/29/19 03/12/19 History Insulin Aspart [NovoLOG Flexpen] 18 units SQ AC-SUPPER 01/29/19 03/12/19 History Insulin Aspart [NovoLOG Flexpen] 21 units SQ AC-LUNCH 01/29/19 03/12/19 History Insulin Glargine [Lantus] 30 unit SQ HS 01/29/19 03/12/19 History Pantoprazole [Protonix] 40 mg PO BID 01/29/19 03/12/19 History Venlafaxine HCl [Effexor] 75 mg PO DAILY 03/12/19 03/12/19 History Allergies Allergy/AdvReac Type Severity Reaction Status Date / Time butorphanol tartrate Allergy BLISTERS Verified 01/30/19 12:52 [From Stadol] IN MOUTH ceftriaxone [From Rocephin] Allergy Unknown Verified 01/30/19 12:52 clarithromycin [From Biaxin] Allergy Rash/Hives Verified 01/30/19 12:52 codeine Allergy Rash/Hives Verified 01/30/19 12:52 ergotamine tartrate Allergy Unknown Verified 01/30/19 12:52 [From Cafergot] erythromycin base Allergy RASH, GI Verified 01/30/19 12:52 [From E-Mycin] SYMPTOMS ketorolac tromethamine Allergy Rash/Hives Verified 01/30/19 12:52 [From Toradol] liraglutide [From Victoza] Allergy Rash/Hives Verified 01/30/19 12:52 morphine Allergy Rash/Hives Verified 01/30/19 12:52 Penicillins Allergy Rash/Hives Verified 01/30/19 12:52 pentazocine lactate Allergy SEVERE Verified 01/30/19 12:52 [From Talwin] BLISTERS IN MOUTH pregabalin [From Lyrica] Allergy Rash/Hives Verified 01/30/19 12:52 propoxyphene HCl Allergy Rash/Hives Verified 01/30/19 12:52 [From Darvon] Sulfa (Sulfonamide Allergy Rash/Hives Verified 01/30/19 12:52 Antibiotics) tramadol Allergy Unknown Verified 01/30/19 12:52 monosodium glutamate [MSG] AdvReac Nausea & Verified 01/30/19 12:52 Vomiting nalbuphine HCl [From Nubain] AdvReac Nausea & Verified 01/30/19 12:52 Vomiting Physical Exam Vitals: Vital Signs Temp Pulse Resp BP Pulse Ox 03/12/19 16:43 83 18 98/44 96 03/12/19 15:00 100.5 F H 102 H 18 107/63 94 L 03/12/19 13:31 101.6 F H 106 H 18 120/59 94 L 03/12/19 12:30 102.6 F H 117 H 18 105/68 94 L 03/12/19 10:03 103 F H 120 H 18 150/90 97 Intake and Output 03/12/19 03/12/19 03/12/19 06:59 14:59 22:59 Other: Weight 63.503 kg GENERAL DESCRIPTION: elderly female lying in bed, no distress. No tachypnea or accessory muscle of respiration use. HEENT: Shows Pallor , no scleral icterus. Oral mucous membrane is dry. No pharyngeal erythema or thrush NECK: Trachea central, no thyromegaly. LUNGS: Unlabored breathing. Clear to auscultation anteriorly. No wheeze or crackle. HEART: S1, S2, regular rate and rhythm. No loud murmur ABDOMEN: Soft, no tenderness , guarding or rigidity, no organomegaly EXTREMITIES: No edema of feet. SKIN: No rash, no masses palpable. NEUROLOGICAL: The patient is awake, alert, oriented x3, mood and affect normal. Results CBC & Chem 7: 03/12/19 10:20 03/12/19 10:20 Labs: Abnormal Lab Results - Last 24 Hours (Table) 03/12/19 03/12/19 03/12/19 Range/Units 10:20 10:20 12:50 WBC 12.0 H (3.8-10.6) k/uL Neutrophils # 9.1 H (1.3-7.7) k/uL Basophils # 0.4 H (0-0.2) k/uL Sodium 136 L (137-145) mmol/L Glucose 182 H (74-99) mg/dL Total Bilirubin 1.8 H (0.2-1.3) mg/dL Urine Protein Trace H (Negative) Urine Ketones 1+ H (Negative) Urine Blood Trace H (Negative) Urine Nitrite Positive H (Negative) Ur Leukocyte Esterase Large H (Negative) Urine WBC 45 H (0-5) /hpf Urine Bacteria Occasional H (None) /hpf Urine Mucus Rare H (None) /hpf Assessment and Plan Assessment: 1-Patient presented to hospital with sepsis in this patient who did have a fever tachycardia and elevated white count did have predominantly urinary symptoms positive UA with abdominal CT suspicious for left perinephric stranding likely source of the sepsis 2-Patient with multiple antibiotics ALLERGIES that will limit the number of antibiotic safe to use (1) Pyelonephritis Current Visit: Yes Status: Acute Code(s): N12 - TUBULO-INTERSTITIAL NE PHRITIS, NOT SPCF ACUTE OR CHRONIC SNOMED Code(s): 36567723 (2) Sepsis Current Visit: Yes Status: Acute Code(s): A41.9 - SEPSIS, UNSPECIFIED ORGANISM SNOMED Code(s): 87229149 Plan: 1-Zosyn 3.375 g every 8 hours 2-IV fluids
[2019-03-12 23:58] LABS: Hemoglobin A1C 9.5 % (4.0-6.0)
[2019-03-13] MEDS: PIPERACILLIN-TAZOBACTAM 3.375 GM in SODIUM CHLORIDE 0.9% 100 ML IVPB SCH ×3 (00:39→15:43)
[2019-03-13] MEDS: HYDROmorphone 1 MG/ML 1 ML SYRINGE IVP PRN ×6 (03:37→20:38)
[2019-03-13] MEDS: SODIUM CHLORIDE 0.9% 1,000 ML IV SCH ×2 (03:56→17:22)
[2019-03-13 07:33] LABS: Glucose,Whole Blood 140 mg/dL (75-99)
[2019-03-13] MEDS: PANTOPRAZOLE 40 MG TABLET PO SCH ×2 (07:38→17:22)
[2019-03-13] MEDS: LISINOPRIL 10 MG TAB PO SCH (07:39)
[2019-03-13] MEDS: HYDROCORTISONE 10 MG TAB PO SCH ×2 (07:39→11:10)
[2019-03-13] MEDS: VENLAFAXINE HCL 75 MG TAB PO SCH (07:40)
[2019-03-13] MEDS: MAGNESIUM OXIDE 400 MG TAB PO SCH (07:40)
[2019-03-13] MEDS: THIAMINE 100 MG TAB PO SCH (07:40)
[2019-03-13] MEDS: HEPARIN SODIUM,PORCINE 5,000 UNIT/ML 1 ML VIAL SQ SCH ×2 (07:40→20:44)
[2019-03-13 08:56] LABS: Basophils % (A) 1 %; Eosinophils # (A) 0.2 k/uL (0-0.7); Eosinophils % (A) 2 %; HCT 34.6 % (34.0-46.0); HGB 11.1 gm/dL (11.4-16.0); Lymphocytes # (A) 1.4 k/uL (1.0-4.8); Lymphocytes % (A) 18 %; MCH 27.2 pg (25.0-35.0); MCHC 32.2 g/dL (31.0-37.0); MCV 84.5 fL (80.0-100.0); Mean Platelet Volume 7.3; Monocytes # (A) 0.6 k/uL (0-1.0); Monocytes % (A) 7 %; Neutrophils # (A) 5.5 k/uL (1.3-7.7); Neutrophils % (A) 70 %; Platelet Count 141 k/uL (150-450); RBC 4.09 m/uL (3.80-5.40); RDW 15.2 % (11.5-15.5); WBC 7.9 k/uL (3.8-10.6)
[2019-03-13 09:05] LABS: African American GFR (CKD) >90 (>60 ml/min/1.73 sqM); Anion Gap 7 mmol/L; Blood Urea Nitrogen 8 mg/dL (7-17); Calcium 8.8 mg/dL (8.4-10.2); Carbon Dioxide 29 mmol/L (22-30); Chloride 105 mmol/L (98-107); Glucose 158 mg/dL (74-99); Potassium 3.6 mmol/L (3.5-5.1); Sodium 141 mmol/L (137-145)
--- NOTE | 2019-03-13 10:21 | P.PN ---
Subjective Progress Note Date: 03/13/19 Patient seen and examined follow-up doing much better today, reports that her nausea and pain are improved, the patient up and using bedside commode. T-max at 100.3 last night, leukocytosis resolved. CT abdomen and pelvis suggesting pyelonephritis the patient is appetite and not returning as yet. Objective - Vital Signs Vital signs: Vital Signs Temp 97.5 F L 03/13/19 07:23 Pulse 63 03/13/19 07:23 Resp 18 03/13/19 07:23 BP 115/56 03/13/19 07:23 Pulse Ox 97 03/13/19 07:23 Intake & Output 03/12/19 03/13/19 03/13/19 18:59 06:59 18:59 Intake Total 0 Balance 0 Weight 63.503 kg Intake: Oral 0 Other: Voiding Method Toilet Toilet # Voids 2 - Exam Constitutional: No acute distress, conversant, pleasant Eyes: Anicteric sclerae, moist conjunctiva, no lid-lag, PERRLA ENMT: NC/AT,Oropharynx clear, no erythema, exudates Neck:Supple, FROM, no masses, or JVD, No carotid bruits; No thyromegaly Lungs: Clear to auscultation, Clear to percussion, Normal respiratory effort, no accessory muscle use Cardiovascular: Heart regular in rate and rhythm, No murmurs, gallops, or rubs no peripheral edema Abdominal: Soft TTP in suprapubic area, ? CVA tenderness L, nom distended, no guarding, no rebound or rigidity, Normoactive bowel sounds No hepatomegaly, No splenomegaly, No palpable mass No abdominal wall hernia noted Skin: Normal temperature, tone, texture, turgor, No induration No subcutaneous nodules, No rash, lesions, No ulcers Extremities:No digital cyanosis No clubbing, Pedal pulses intact and symmetrical Radial pulses intact and symmetrical Normal gait and station, No calf tenderness Psychiatric: Alert and oriented to person, place and time, Appropriate affect Intact judgement Neuro: Muscles Strength 5/5 in all 4 extremities, Sensation to light touch grossly present throughout, Cranial nerves II-XII grossly intact. No focal sensory deficits - Labs CBC & Chem 7: 03/13/19 08:30 03/13/19 08:30 Labs: Abnormal Lab Results - Last 24 Hours (Table) 03/12/19 03/12/19 03/12/19 Range/Units 10:20 10:20 10:20 WBC 12.0 H (3.8-10.6) k/uL Hgb (11.4-16.0) gm/dL Plt Count (150-450) k/uL Neutrophils # 9.1 H (1.3-7.7) k/uL Basophils # 0.4 H (0-0.2) k/uL Sodium 136 L (137-145) mmol/L Glucose 182 H (74-99) mg/dL POC Glucose (mg/dL) (75-99) mg/dL Hemoglobin A1c 9.5 H (4.0-6.0) % Total Bilirubin 1.8 H (0.2-1.3) mg/dL Urine Protein (Negative) Urine Ketones (Negative) Urine Blood (Negative) Urine Nitrite (Negative) Ur Leukocyte Esterase (Negative) Urine WBC (0-5) /hpf Urine Bacteria (None) /hpf Urine Mucus (None) /hpf 03/12/19 03/12/19 03/12/19 Range/Units 12:50 21:06 22:08 WBC (3.8-10.6) k/uL Hgb (11.4-16.0) gm/dL Plt Count (150-450) k/uL Neutrophils # (1.3-7.7) k/uL Basophils # (0-0.2) k/uL Sodium (137-145) mmol/L Glucose (74-99) mg/dL POC Glucose (mg/dL) 135 H 122 H (75-99) mg/dL Hemoglobin A1c (4.0-6.0) % Total Bilirubin (0.2-1.3) mg/dL Urine Protein Trace H (Negative) Urine Ketones 1+ H (Negative) Urine Blood Trace H (Negative) Urine Nitrite Positive H (Negative) Ur Leukocyte Esterase Large H (Negative) Urine WBC 45 H (0-5) /hpf Urine Bacteria Occasional H (None) /hpf Urine Mucus Rare H (None) /hpf 03/13/19 03/13/19 03/13/19 Range/Units 07:13 08:30 08:30 WBC (3.8-10.6) k/uL Hgb 11.1 L (11.4-16.0) gm/dL Plt Count 141 L (150-450) k/uL Neutrophils # (1.3-7.7) k/uL Basophils # (0-0.2) k/uL Sodium (137-145) mmol/L Glucose 158 H (74-99) mg/dL POC Glucose (mg/dL) 140 H (75-99) mg/dL Hemoglobin A1c (4.0-6.0) % Total Bilirubin (0.2-1.3) mg/dL Urine Protein (Negative) Urine Ketones (Negative) Urine Blood (Negative) Urine Nitrite (Negative) Ur Leukocyte Esterase (Negative) Urine WBC (0-5) /hpf Urine Bacteria (None) /hpf Urine Mucus (None) /hpf Microbiology - Last 24 Hours (Table) 03/12/19 12:50 Urine Culture - Preliminary Urine,Voided Assessment and Plan (1) Sepsis Narrative/Plan: * Secondary to ESBL UTI/pyelonephritis * Patient afebrile overnight leukocytosis resolving * Continue IV Zosyn * The patient hemodynamically stable sepsis resolving no longer tachycardic * Patient will need PICC for 2 weeks of IV antibiotics - may switch antibiotic to once daily dosing options but will defer to ID for choice of therapy Current Visit: Yes Status: Acute Code(s): A41.9 - SEPSIS, UNSPECIFIED ORGANISM SNOMED Code(s): 39260263 (2) Pyelonephritis Narrative/Plan: * As above Current Visit: Yes Status: Acute Code(s): N12 - TUBULO-INTERSTITIAL NEPHRITIS, NOT SPCF ACUTE OR CHRONIC SNOMED Code(s): 45407589 (3) UTI due to extended-spectrum beta lactamase (ESBL) producing Escherichia coli Narrative/Plan: * As above Current Visit: Yes Status: Acute Code(s): N39.0 - URINARY TRACT INFECTION, SITE NOT SPECIFIED; B96.29 - OTH ESCHERICHIA COLI THE CAUSE OF DISEASES CLASSD ELSWHR; Z16.12 - EXTENDED SPECTRUM BETA LACTAMASE (ESBL) RESISTANCE SNOMED Code(s): 811113689 (4) Intractable nausea and vomiting Narrative/Plan: * Supportive therapy with IV fluids and antiemetics and pain medication Current Visit: Yes Status: Acute Code(s): R11.2 - NAUSEA WITH VOMITING, UNSPECIFIED SNOMED Code(s): 984311386 (5) DM type 2 (diabetes mellitus, type 2) Narrative/Plan: * Blood sugars slightly elevated but for the most part well controlled * We'll advance diet to clear liquids and advance as tolerated to diabetic diet * We will plan to resume home diabetic regimen when patient starts to eat * A1c was 9.5 * Continue half long-acting insulin and correctional scale coverage Current Visit: No Status: Chronic Code(s): E11.9 - TYPE 2 DIABETES MELLITUS WITHOUT COMPLICATIONS SNOMED Code(s): 35926175 (6) Generalized weakness Narrative/Plan: * Continue with PT OT Current Visit: No Status: Acute Code(s): R53.1 - WEAKNESS SNOMED Code(s): 47887942 Plan: CODE STATUS: Full code Discussed plan of care with: Rashid and the patient Anticipated discharge: 2-[address]: Home Prophylaxis: SCDs and heparin
[2019-03-13 12:17] LABS: Glucose,Whole Blood 265 mg/dL (75-99)
[2019-03-13] MEDS ORDERED: HYDROCORTISONE 20 MG TAB PO SCH (12:30)
[2019-03-13 13:21] VITALS: BMI 27.3
[2019-03-13 16:36] LABS: Glucose,Whole Blood 239 mg/dL (75-99)
[2019-03-13] MEDS: INSULIN DETEMIR (LEVEMIR) 100 UNIT/ML SYR SQ SCH (20:44)
[2019-03-13 20:54] LABS: Glucose,Whole Blood 203 mg/dL (75-99)
[2019-03-13] MEDS: METOPROLOL SUCCINATE (ER) 50 MG TAB.ER.24H PO SCH (20:57)
--- NOTE | 2019-03-13 22:42 | PN ---
PROGRESS NOTE DATE OF SERVICE: 03/13/2019 REASON FOR FOLLOWUP: Urinary tract infection. INTERVAL HISTORY: The patient is currently afebrile. The patient has been breathing comfortably. The patient denies having any chest pain or cough. No further nausea or vomiting. However, still has some diarrhea. Urinary symptoms are slightly improved. PHYSICAL EXAMINATION: Blood pressure 112/68 with a pulse of 70, temperature of 98.2. She is 98% on room air. General description is an elderly female lying in bed in no distress. RESPIRATORY SYSTEM: Unlabored breathing. Clear to auscultation anteriorly. HEART: S1, S2. Regular rate and rhythm. ABDOMEN: Soft. No tenderness. EXTREMITIES: No edema of the feet. LABS: Hemoglobin is 11 with a white count of 7.9, BUN of 8, creatinine 0.57. Urine cultures currently pending. DIAGNOSTIC IMPRESSION AND PLAN: Patient admitted to hospital with acute nausea, vomiting, diarrhea with features of sepsis and positive UA, likely a urinary source. Urine cultures are currently pending. The patient clinically is responding to Zosyn; that will be continued while monitoring her clinical course and cultures closely. Continue with supportive care. Discharge antibiotic will depend on the culture report. MMODL / IJN: [id number] /
[2019-03-14] MEDS: HYDROmorphone 1 MG/ML 1 ML SYRINGE IVP PRN ×8 (00:07→22:12)
[2019-03-14] MEDS: PIPERACILLIN-TAZOBACTAM 3.375 GM in SODIUM CHLORIDE 0.9% 100 ML IVPB SCH ×2 (00:09→06:51)
[2019-03-14] MEDS: THIAMINE 100 MG TAB PO SCH (06:50)
[2019-03-14] MEDS: HEPARIN SODIUM,PORCINE 5,000 UNIT/ML 1 ML VIAL SQ SCH ×2 (06:50→22:01)
[2019-03-14] MEDS: PANTOPRAZOLE 40 MG TABLET PO SCH ×2 (06:50→16:36)
[2019-03-14] MEDS: MAGNESIUM OXIDE 400 MG TAB PO SCH (06:50)
[2019-03-14] MEDS: HYDROCORTISONE 10 MG TAB PO SCH (06:50)
[2019-03-14] MEDS: VENLAFAXINE HCL 75 MG TAB PO SCH (06:50)
[2019-03-14] MEDS: LISINOPRIL 10 MG TAB PO SCH (06:50)
[2019-03-14] MEDS: SODIUM CHLORIDE 0.9% 1,000 ML IV SCH ×2 (06:51→22:04)
[2019-03-14 07:25] LABS: Glucose,Whole Blood 149 mg/dL (75-99)
[2019-03-14 08:19] LABS: Basophils % (A) 0 %; Eosinophils # (A) 0.2 k/uL (0-0.7); Eosinophils % (A) 3 %; HCT 32.4 % (34.0-46.0); HGB 10.6 gm/dL (11.4-16.0); Lymphocytes # (A) 1.7 k/uL (1.0-4.8); Lymphocytes % (A) 25 %; MCH 27.1 pg (25.0-35.0); MCHC 32.6 g/dL (31.0-37.0); MCV 83.1 fL (80.0-100.0); Mean Platelet Volume 7.8; Monocytes # (A) 0.5 k/uL (0-1.0); Monocytes % (A) 7 %; Neutrophils # (A) 4.2 k/uL (1.3-7.7); Neutrophils % (A) 61 %; Platelet Count 161 k/uL (150-450); RDW 14.9 % (11.5-15.5); WBC 6.8 k/uL (3.8-10.6)
--- NOTE | 2019-03-14 08:29 | P.PN ---
Subjective Progress Note Date: 03/14/19 Patient examined follow-up, complaining of nausea and right sided abdominal pain and has had 5 episodes of diarrhea described as loose stools, the patient continues to be afebrile, leukocytosis has resolved. Patient had PICC line placed yesterday. No acute events overnight Objective - Vital Signs Vital signs: Vital Signs Temp 98.6 F 03/14/19 07:00 Pulse 67 03/14/19 07:00 Resp 20 03/14/19 07:00 BP 132/66 03/14/19 07:00 Pulse Ox 92 L 03/14/19 07:00 Intake & Output 03/13/19 03/14/19 03/14/19 18:59 06:59 18:59 Intake Total 540 250 Balance 540 250 Weight 63.503 kg Intake: Oral 540 250 Other: Voiding Method Toilet Bedside Commode # Voids 2 0 # Bowel Movements 2 # Emeses 3 - Exam Constitutional: No acute distress, conversant, pleasant Eyes: Anicteric sclerae, moist conjunctiva, no lid-lag, PERRLA ENMT: NC/AT,Oropharynx clear, no erythema, exudates Neck:Supple, FROM, no masses, or JVD, No carotid bruits; No thyromegaly Lungs: Clear to auscultation, Clear to percussion, Normal respiratory effort, no accessory muscle use Cardiovascular: Heart regular in rate and rhythm, No murmurs, gallops, or rubs no peripheral edema Abdominal: Soft TTP in suprapubic area, ? CVA tenderness L, nom distended, no guarding, no rebound or rigidity, Normoactive bowel sounds No hepatomegaly, No splenomegaly, No palpable mass No abdominal wall hernia noted Skin: Normal temperature, tone, texture, turgor, No induration No subcutaneous nodules, No rash, lesions, No ulcers Extremities:No digital cyanosis No clubbing, Pedal pulses intact and symmetrical Radial pulses intact and symmetrical Normal gait and station, No ca lf tenderness Psychiatric: Alert and oriented to person, place and time, Appropriate affect Intact judgement Neuro: Muscles Strength 5/5 in all 4 extremities, Sensation to light touch grossly present throughout, Cranial nerves II-XII grossly intact. No focal sensory deficits - Labs CBC & Chem 7: 03/14/19 07:46 03/13/19 08:30 Labs: Abnormal Lab Results - Last 24 Hours (Table) 03/13/19 03/13/19 03/13/19 Range/Units 08:30 08:30 12:13 Hgb 11.1 L (11.4-16.0) gm/dL Hct (34.0-46.0) % Plt Count 141 L (150-450) k/uL Glucose 158 H (74-99) mg/dL POC Glucose (mg/dL) 265 H (75-99) mg/dL 03/13/19 03/13/19 03/14/19 Range/Units 16:33 20:33 07:03 Hgb (11.4-16.0) gm/dL Hct (34.0-46.0) % Plt Count (150-450) k/uL Glucose (74-99) mg/dL POC Glucose (mg/dL) 239 H 203 H 149 H (75-99) mg/dL 03/14/19 Range/Units 07:46 Hgb 10.6 L (11.4-16.0) gm/dL Hct 32.4 L (34.0-46.0) % Plt Count (150-450) k/uL Glucose (74-99) mg/dL POC Glucose (mg/dL) (75-99) mg/dL Microbiology - Last 24 Hours (Table) 03/12/19 12:50 Urine Culture - Preliminary Urine,Voided Gram Neg Bacilli 03/12/19 12:37 Blood Culture - Preliminary Blood No Growth after 24 hours Assessment and Plan (1) Sepsis Narrative/Plan: * Secondary to ESBL UTI/pyelonephritis * Patient afebrile overnight leukocytosis resolving * Continue IV Zosyn * The patient hemodynamically stable sepsis resolving no longer tachycardic * PICC line placed yesterday for 2 weeks of IV antibiotics - may switch antibiotic to once daily dosing options but will defer to ID for choice of therapy Current Visit: Yes Status: Acute Code(s): A41.9 - SEPSIS, UNSPECIFIED ORGANISM SNOMED Code(s): 69659238 (2) Pyelonephritis Narrative/Plan: * As above Current Visit: Yes Status: Acute Code(s): N12 - TUBULO-INTERSTITIAL NEPHRITIS, NOT SPCF ACUTE OR CHRONIC SNOMED Code(s): 74320024 (3) UTI due to extended-spectrum beta lactamase (ESBL) producing Escherichia coli Narrative/Plan: * As above Current Visit: Yes Status: Acute Code(s): N39.0 - URINARY TRACT INFECTION, SITE NOT SPECIFIED; B96.29 - OTH ESCHERICHIA COLI THE CAUSE OF DISEASES CLASSD ELSWHR; Z16.12 - EXTENDED SPECTRUM BETA LACTAMASE (ESBL) RESISTANCE SNOMED Code(s): 466527978 (4) Colitis Narrative/Plan: * We'll check C. diff as patient is having diarrhea * CT abdomen and pelvis that revealed mild colitis at the ileocecal junction * We'll start the patient on Flagyl Current Visit: Yes Status: Acute Code(s): K52.9 - NONINFECTIVE GASTROENTERITIS AND COLITIS, UNSPECIFIED SNOMED Code(s): 13196451 (5) Intractable nausea and vomiting Narrative/Plan: * Supportive therapy with IV fluids and antiemetics and pain medication Current Visit: Yes Status: Acute Code(s): R11.2 - NAUSEA WITH VOMITING, UNSPECIFIED SNOMED Code(s): 366712843 (6) DM type 2 (diabetes mellitus, type 2) Narrative/Plan: * Blood sugars slightly elevated but for the most part well controlled * We'll advance diet to clear liquids and advance as tolerated to diabetic diet * We will plan to resume home diabetic regimen when patient starts to eat * A1c was 9.5 * Continue half long-acting insulin and correctional scale coverage Current Visit: No Status: Chronic Code(s): E11.9 - TYPE 2 DIABETES MELLITUS WITHOUT COMPLICATIONS SNOMED Code(s): 24339706 (7) Generalized weakness Narrative/Plan: * Continue with PT OT Current Visit: No Status: Acute Code(s): R53.1 - WEAKNESS SNOMED Code(s): 40908500 Plan: Disposition * Patient doing well anticipated discharge 1-2 days
[2019-03-14 08:30] LABS: African American GFR (CKD) >90 (>60 ml/min/1.73 sqM); Anion Gap 8 mmol/L; Blood Urea Nitrogen 3 mg/dL (7-17); Carbon Dioxide 28 mmol/L (22-30); Chloride 101 mmol/L (98-107); Glucose 136 mg/dL (74-99); Potassium 3.1 mmol/L (3.5-5.1); Sodium 137 mmol/L (137-145)
[2019-03-14] MEDS: HYDROCORTISONE SUCCINATE 100 MG/2 ML VIAL IV SCH ×2 (08:45→15:15)
[2019-03-14] MEDS: metroNIDAZOLE-NS PMX 500 MG in SALINE 1 100ML.BAG IVPB SCH ×2 (08:45→15:15)
[2019-03-14 12:26] LABS: Glucose,Whole Blood 204 mg/dL (75-99)
[2019-03-14] MEDS: ERTAPENEM 1 GM in SODIUM CHLORIDE 0.9% 50 ML IVPB SCH (14:20)
[2019-03-14 16:45] LABS: Glucose,Whole Blood 175 mg/dL (75-99)
--- NOTE | 2019-03-14 19:00 | PN ---
PROGRESS NOTE DATE OF SERVICE: 03/14/2019. REASON FOR FOLLOWUP: Urinary tract infection. INTERVAL HISTORY: The patient is currently afebrile. The patient is complaining of some right lower abdominal pain and diarrhea, but no further vomiting. Denies any chest pain, shortness of breath or cough. PHYSICAL EXAMINATION: Blood pressure 132/69 with a pulse of 71, temperature 98.8. She is 95% on 2 L nasal cannula. General description is an elderly female lying in bed in no distress. Respiratory system: Unlabored breathing. Clear to auscultation anteriorly. Heart S1, S2. Regular rate and rhythm. ABDOMEN: Soft, no tenderness. LABS: Hemoglobin is 10.2, white of 6.8. BUN of 3, creatinine 0.49. Urine showing gram- negative bacilli. DIAGNOSTIC IMPRESSION AND PLAN: Patient admitted to the hospital with sepsis with concern for a gram-negative urinary tract infection, previous history positive for ESBL. Antibiotic will be adjusted to Invanz 1 g daily in view of persistent symptoms with discharge antibiotic depending upon the culture report. Continue supportive care. MMODL / IJN: [id number] /
[2019-03-14 20:34] LABS: Glucose,Whole Blood 159 mg/dL (75-99)
[2019-03-14] MEDS: METOPROLOL SUCCINATE (ER) 50 MG TAB.ER.24H PO SCH (22:01)
[2019-03-14] MEDS: INSULIN DETEMIR (LEVEMIR) 100 UNIT/ML SYR SQ SCH (22:03)
[2019-03-15] MEDS: HYDROCORTISONE SUCCINATE 100 MG/2 ML VIAL IV SCH ×4 (01:17→23:12)
[2019-03-15] MEDS: metroNIDAZOLE-NS PMX 500 MG in SALINE 1 100ML.BAG IVPB SCH ×2 (01:17→08:18)
[2019-03-15] MEDS: HYDROmorphone 1 MG/ML 1 ML SYRINGE IVP PRN ×3 (01:51→08:30)
[2019-03-15 07:37] LABS: Glucose,Whole Blood 132 mg/dL (75-99)
[2019-03-15] MEDS: PANTOPRAZOLE 40 MG TABLET PO SCH ×2 (08:18→17:46)
[2019-03-15] MEDS: HEPARIN SODIUM,PORCINE 5,000 UNIT/ML 1 ML VIAL SQ SCH ×2 (08:18→21:55)
[2019-03-15] MEDS: LISINOPRIL 10 MG TAB PO SCH (08:18)
[2019-03-15] MEDS: MAGNESIUM OXIDE 400 MG TAB PO SCH (08:18)
[2019-03-15] MEDS: THIAMINE 100 MG TAB PO SCH (08:18)
[2019-03-15] MEDS: VENLAFAXINE HCL 75 MG TAB PO SCH (08:18)
[2019-03-15] MEDS: SODIUM CHLORIDE 0.9% 1,000 ML IV SCH ×2 (08:19→23:02)
[2019-03-15 08:25] LABS: Basophils % (A) 0 %; Eosinophils # (A) 0.1 k/uL (0-0.7); Eosinophils % (A) 1 %; HCT 31.4 % (34.0-46.0); HGB 10.6 gm/dL (11.4-16.0); Hypochromasia Slight; Lymphocytes # (A) 1.1 k/uL (1.0-4.8); Lymphocytes % (A) 18 %; MCH 27.8 pg (25.0-35.0); MCHC 33.9 g/dL (31.0-37.0); Monocytes # (A) 0.3 k/uL (0-1.0); Monocytes % (A) 5 %; Neutrophils # (A) 4.4 k/uL (1.3-7.7); Neutrophils % (A) 74 %; Platelet Count 187 k/uL (150-450); RBC 3.83 m/uL (3.80-5.40); RDW 14.1 % (11.5-15.5); WBC 5.9 k/uL (3.8-10.6)
[2019-03-15 08:49] LABS: African American GFR (CKD) >90 (>60 ml/min/1.73 sqM); Anion Gap 6 mmol/L; Blood Urea Nitrogen 3 mg/dL (7-17); Carbon Dioxide 33 mmol/L (22-30); Chloride 101 mmol/L (98-107); Glucose 115 mg/dL (74-99); Potassium 3.2 mmol/L (3.5-5.1); Sodium 140 mmol/L (137-145)
[2019-03-15] MEDS ORDERED: POTASSIUM CHLORIDE ER 20 MEQ TAB.ER PO STA (09:23)
--- NOTE | 2019-03-15 10:00 | P.PN ---
Subjective Progress Note Date: 03/15/19 Patient seen and examined and follow-up, still on clear liquids. Reporting her abdominal pain is better still complain of diarrhea, serum potassium 3.2 today. Discussed with patient that she is approaching discharge as she's been afebrile and that we have her urine cultures [facility] sensitivities back. Patient reporting that she is not ready and that she's weak, as stated that PT stopped by earlier today that she has not been up and ambulatory. Discussed that we would have PT see her and that she would likely be discharged tomorrow with plans for daily IV antibiotic infusions. No acute events overnight Objective - Vital Signs Vital signs: Vital Signs Temp 98.6 F 03/15/19 07:00 Pulse 64 03/15/19 07:00 Resp 16 03/15/19 07:00 BP 132/70 03/15/19 07:00 Pulse Ox 91 L 03/15/19 07:00 Intake & Output 03/14/19 03/15/19 03/15/19 18:59 06:59 18:59 Intake Total 500 Balance 500 Intake: Oral 500 Other: Voiding Method Bedside Commode Bedside Commode # Voids 3 2 # Bowel Movements 3 1 - Exam Constitutional: No acute distress, conversant, pleasant Eyes: Anicteric sclerae, moist conjunctiva, no lid-lag, PERRLA ENMT: NC/AT,Oropharynx clear, no erythema, exudates Neck:Supple, FROM, no masses, or JVD, No carotid bruits; No thyromegaly Lungs: Clear to auscultation, Clear to percussion, Normal respiratory effort, no accessory muscle use Cardiovascular: Heart regular in rate and rhythm, No murmurs, gallops, or rubs no peripheral edema Abdominal: Soft TTP in suprapubic area, ? CVA tenderness L, nom distended, no guarding, no rebound or rigidity, Normoactive bowel sounds No hepatomegaly, No splenomegaly, No palpable mass No abdominal wall hernia noted Skin: Normal temperature, tone, texture, turgor, No induration No subcutaneous nodules, No rash, lesions, No ulcers Extremities:No digital cyanosis No clubbing, Pedal pulses intact and symmetrical Radial pulses intact and symmetrical Normal gait and station, No ca lf tenderness Psychiatric: Alert and oriented to person, place and time, Appropriate affect Intact judgement Neuro: Muscles Strength 5/5 in all 4 extremities, Sensation to light touch grossly present throughout, Cranial nerves II-XII grossly intact. No focal sensory deficits - Labs CBC & Chem 7: 03/15/19 08:03 03/15/19 08:03 Labs: Abnormal Lab Results - Last 24 Hours (Table) 03/14/19 03/14/19 03/14/19 Range/Units 12:24 16:42 20:20 Hgb (11.4-16.0) gm/dL Hct (34.0-46.0) % Potassium (3.5-5.1) mmol/L Carbon Dioxide (22-30) mmol/L BUN (7-17) mg/dL Creatinine (0.52-1.04) mg/dL Glucose (74-99) mg/dL POC Glucose (mg/dL) 204 H 175 H 159 H (75-99) mg/dL 03/15/19 03/15/19 03/15/19 Range/Units 07:20 08:03 08:03 Hgb 10.6 L (11.4-16.0) gm/dL Hct 31.4 L (34.0-46.0) % Potassium 3.2 L (3.5-5.1) mmol/L Carbon Dioxide 33 H (22-30) mmol/L BUN 3 L (7-17) mg/dL Creatinine 0.47 L (0.52-1.04) mg/dL Glucose 115 H (74-99) mg/dL POC Glucose (mg/dL) 132 H (75-99) mg/dL Microbiology - Last 24 Hours (Table) 03/12/19 12:50 Urine Culture - Final Urine,Voided Escherichia coli 03/12/19 12:37 Blood Culture - Preliminary Blood No Growth after 48 hours Assessment and Plan (1) Sepsis Narrative/Plan: * Secondary to ESBL UTI/pyelonephritis * Patient afebrile overnight leukocytosis resolving * Continue IV Invanz * The patient hemodynamically stable sepsis resolving no longer tachycardic * PICC line placed plan for 7 more days of IV antibiotics - appreciate ID recommendations Current Visit: Yes Status: Acute Code(s): A41.9 - SEPSIS, UNSPECIFIED ORGANISM SNOMED Code(s): 60481808 (2) Pyelonephritis Narrative/Plan: * As above Current Visit: Yes Status: Acute Code(s): N12 - TUBULO-INTERSTITIAL NEPHRITIS, NOT SPCF ACUTE OR CHRONIC SNOMED Code(s): 16643751 (3) UTI due to extended-spectrum beta lactamase (ESBL) producing Escherichia co li Narrative/Plan: * As above Current Visit: Yes Status: Acute Code(s): N39.0 - URINARY TRACT INFECTION, SITE NOT SPECIFIED; B96.29 - OTH ESCHERICHIA COLI THE CAUSE OF DISEASES CLASSD ELSWHR; Z16.12 - EXTENDED SPECTRUM BETA LACTAMASE (ESBL) RESISTANCE SNOMED Code(s): 067100837 (4) Colitis Narrative/Plan: * C. diff was negative * CT abdomen and pelvis that revealed mild colitis at the ileocecal junction * Continue Flagyl but switched to oral dosing Current Visit: Yes Status: Acute Code(s): K52.9 - NONINFECTIVE GASTROENTERITIS AND COLITIS, UNSPECIFIED SNOMED Code(s): 43816571 (5) Intractable nausea and vomiting Narrative/Plan: * Supportive therapy with IV fluids and antiemetics and pain medication Current Visit: Yes Status: Acute Code(s): R11.2 - NAUSEA WITH VOMITING, UNSPECIFIED SNOMED Code(s): 970635347 (6) DM type 2 (diabetes mellitus, type 2) Narrative/Plan: * Blood sugars slightly elevated but for the most part well controlled * We'll advance diet to clear liquids and advance as tolerated to diabetic diet * We will plan to resume home diabetic regimen when patient starts to eat * A1c was 9.5 * Continue half long-acting insulin and correctional scale coverage Current Visit: No Status: Chronic Code(s): E11.9 - TYPE 2 DIABETES MELLITUS WITHOUT COMPLICATIONS SNOMED Code(s): 66660267 (7) Generalized weakness Narrative/Plan: * Continue with PT OT Current Visit: No Status: Acute Code(s): R53.1 - WEAKNESS SNOMED Code(s): 02748976 Plan: Disposition * Patient doing well anticipated discharge tomorrow * Plan to transition to oral analgesic regimen discontinue her IV Dilaudid later today * We'll also replace her potassium and recheck tomorrow
[2019-03-15] MEDS: HYDROmorphone 0.5 MG/0.5 ML SYRINGE IVP PRN ×2 (11:56→15:45)
[2019-03-15 12:16] LABS: Glucose,Whole Blood 151 mg/dL (75-99)
[2019-03-15] MEDS ORDERED: Magnesium Replacement Protocol 1 EACH MISC MISCELLANE PRN (12:28)
[2019-03-15] MEDS: MAGNESIUM SULFATE-D5W PMX 1 GM in DEXTROSE/WATER 1 100ML.BAG IVPB SCH ×2 (13:02→14:07)
[2019-03-15] MEDS: metroNIDAZOLE 500 MG TAB PO SCH ×2 (15:40→21:56)
[2019-03-15] MEDS: ERTAPENEM 1 GM in SODIUM CHLORIDE 0.9% 50 ML IVPB SCH (15:40)
[2019-03-15 17:12] LABS: Glucose,Whole Blood 162 mg/dL (75-99)
--- NOTE | 2019-03-15 17:49 | PN ---
PROGRESS NOTE DATE OF SERVICE: 03/15/2019 REASON FOR FOLLOWUP: ESBL E coli urinary tract infection. INTERVAL HISTORY: The patient is currently afebrile. The patient has been breathing comfortably. Still complains of some left lower abdominal discomfort. No worsening, though. Denies any further nausea. No vomiting. No diarrhea. No chest pain, shortness of breath or cough. PHYSICAL EXAMINATION: Blood pressure is 119/56, pulse of 75, temperature 97.3. She is 93% on room air. General description is an elderly female up in the bed in no distress. RESPIRATORY SYSTEM: Unlabored breathing. Clear to auscultation anteriorly. HEART: S1, S2. Regular rate and rhythm. ABDOMEN: Soft. No tenderness. LABS: Hemoglobin 10.6, white count 5.9, BUN of 3, creatinine 0.47. DIAGNOSTIC IMPRESSION AND PLAN: Patient with extended-spectrum beta-lactamase Escherichia coli urinary tract infection. The patient is currently on IV Invanz; to continue for another 7 days to finish her course of therapy. She already has a midline, and outpatient antibiotic has been arranged. Continue with supportive care. MMODL / IJN: [id number] /
[2019-03-15] MEDS: HYDROcodone/APAP 10-325MG 1 EACH TAB PO PRN (17:51)
[2019-03-15 20:01] LABS: Glucose,Whole Blood 277 mg/dL (75-99)
[2019-03-15] MEDS: INSULIN DETEMIR (LEVEMIR) 100 UNIT/ML SYR SQ SCH (21:56)
[2019-03-15] MEDS: METOPROLOL SUCCINATE (ER) 50 MG TAB.ER.24H PO SCH (22:02)
[2019-03-16] MEDS: HYDROcodone/APAP 10-325MG 1 EACH TAB PO PRN ×3 (02:00→14:48)
[2019-03-16 06:53] LABS: Glucose,Whole Blood 172 mg/dL (75-99)
[2019-03-16 07:33] LABS: Basophils % (A) 0 %; Eosinophils # (A) 0.1 k/uL (0-0.7); Eosinophils % (A) 1 %; HCT 30.4 % (34.0-46.0); Hypochromasia Slight; Lymphocytes # (A) 1.3 k/uL (1.0-4.8); Lymphocytes % (A) 23 %; MCH 27.3 pg (25.0-35.0); MCHC 32.8 g/dL (31.0-37.0); MCV 83.2 fL (80.0-100.0); Mean Platelet Volume 7.8; Monocytes # (A) 0.4 k/uL (0-1.0); Monocytes % (A) 8 %; Neutrophils # (A) 3.6 k/uL (1.3-7.7); Neutrophils % (A) 65 %; Platelet Count 182 k/uL (150-450); RBC 3.66 m/uL (3.80-5.40); RDW 14.8 % (11.5-15.5); WBC 5.5 k/uL (3.8-10.6)
[2019-03-16 07:42] LABS: African American GFR (CKD) >90 (>60 ml/min/1.73 sqM); Anion Gap 7 mmol/L; Blood Urea Nitrogen 8 mg/dL (7-17); Calcium 8.7 mg/dL (8.4-10.2); Carbon Dioxide 31 mmol/L (22-30); Chloride 103 mmol/L (98-107); Glucose 168 mg/dL (74-99); Potassium 3.4 mmol/L (3.5-5.1); Sodium 141 mmol/L (137-145)
[2019-03-16] MEDS ORDERED: Potassium Replacement Protocol 1 EACH MISC MISCELLANE PRN (08:23)
[2019-03-16] MEDS: MAGNESIUM OXIDE 400 MG TAB PO SCH (08:28)
[2019-03-16] MEDS: metroNIDAZOLE 500 MG TAB PO SCH ×2 (08:28→14:46)
[2019-03-16] MEDS: VENLAFAXINE HCL 75 MG TAB PO SCH (08:28)
[2019-03-16] MEDS: LISINOPRIL 10 MG TAB PO SCH (08:28)
[2019-03-16] MEDS: HEPARIN SODIUM,PORCINE 5,000 UNIT/ML 1 ML VIAL SQ SCH (08:28)
[2019-03-16] MEDS: THIAMINE 100 MG TAB PO SCH (08:28)
[2019-03-16] MEDS: PANTOPRAZOLE 40 MG TABLET PO SCH (08:28)
[2019-03-16] MEDS: HYDROCORTISONE SUCCINATE 100 MG/2 ML VIAL IV SCH ×2 (08:28→14:46)
[2019-03-16] MEDS: POTASSIUM CHLORIDE ER 20 MEQ TAB.ER PO SCH (08:38)
[2019-03-16 11:13] LABS: Glucose,Whole Blood 171 mg/dL (75-99)
[2019-03-16] MEDS: SODIUM CHLORIDE 0.9% 1,000 ML IV SCH (11:19)
[2019-03-16 11:55] VITALS: BP 150/76; PULSE 64; RESP 18; TEMP 98
[2019-03-16] MEDS: ERTAPENEM 1 GM in SODIUM CHLORIDE 0.9% 50 ML IVPB SCH (12:29)
--- NOTE | 2019-03-16 14:08 | P.DS ---
Providers Date of admission: 03/12/19 14:56 Expected date of discharge: 03/16/19 Attending physician: David Adan MD Consults: 03/12/19 15:47 Consult Physician Routine Consulting Provider: Chalino Osman Consult Reason/Comments: ESBL /UTI Do you want consulting provider notified?: Yes Primary care physician: Allyson Guardado MD - Discharge Diagnosis(es) (1) Sepsis Current Visit: Yes Status: Acute (2) Pyelonephritis Current Visit: Yes Status: Acute (3) UTI due to extended-spectrum beta lactamase (ESBL) producing Escherichia coli Current Visit: Yes Status: Acute (4) Colitis Current Visit: Yes Status: Acute (5) Intractable nausea and vomiting Current Visit: Yes Status: Acute (6) DM type 2 (diabetes mellitus, type 2) Current Visit: No Status: Chronic (7) Generalized weakness Current Visit: No Status: Acute Hospital Course: The patient is a 68-year-old female that was admitted for sepsis due to pyelonephritis and ESBL UTI after presenting with symptoms of fever, UTI symptoms, suprapubic pain and left CVA tenderness with a mild leukocytosis of 12 and tachycardia. The patient remained normotensive and responded fluids and was started on empiric IV antibiotics with IV Zosyn. The patient apparently been having UTI symptoms and had a urine culture done by PCP that showed ESBL UTI, repeat urine culture here were consistent with those results. CT abdomen and pelvis suggested pyelonephritis. ID was consulted Dr. Osman recommending changing antibiotic coverage to include Invanz. Patient was noted to have some mild electrolyte abnormalities that were corrected. CT abdomen and pelvis and also show mild colitis the patient was started on Flagyl, despite ongoing diarrhea C. diff was negative. With treatment the patient's fever and leukocytosis resolved and she was subsequently discharged home in stable condition with plans for continuing Invanz. The patient was instructed on discharge to follow up in Dr. Osman's office daily for antibiotic infusion of Invanz. This discharge process took approximately 35 minutes. Focused exam GI: Soft nontender nondistended normoactive bowel sounds in all 4 quadrants Patient Condition at Discharge: Good Plan - Discharge Summary Discharge Rx Participant: Yes New Discharge Prescriptions: New metroNIDAZOLE [Flagyl] 500 mg PO TID #30 tab Ertapenem [INVanz] 1 gm IVPB Q24H #0 vial Continue Cholecalciferol [Vitamin D3 (25 Mcg = 1000 Iu)] 3,000 unit PO DAILY@0700 Ondansetron [Zofran] 4 mg PO Q6H PRN PRN Reason: Nausea And Vomiting Metoprolol Succinate (ER) [Toprol XL] 50 mg PO HS Meclizine [Antivert] 25 mg PO QID PRN PRN Reason: Vertigo Magnesium Oxide 400 mg PO QAM Hydrocortisone [Cortef] 10 mg PO AC-LUNCH Hydrocortisone [Cortef] 15 mg PO AC-BRKFST Hydrocortisone [Cortef] 5 mg PO HS Aspirin 81 mg PO DAILY #0 Budesonide [Pulmicort Flexhaler] 1 puff INHALATION RT-BID PRN PRN Reason: Shortness Of Breath Glucagon Emergency Kit 1 mg IM ONCE PRN PRN Reason: Hypoglycemia Methocarbamol [Robaxin-750] 750 mg PO TID PRN PRN Reason: Muscle Spasm Ferrous Sulfate [Iron (65 MG Elemental)] 325 mg PO DAILY Vitamin B-Complex Drops 1 drop PO BID Thiamine [Vitamin B-1] 100 mg PO DAILY Folic Acid 0.4 mg PO DAILY Multivitamins, Thera Liquid [Theragran Liquid (formulary)] 30 ml PO DAILY L.acidoph,Paracasei, B.lactis [Probiotic] 2 cap PO BID Melatonin 5 mg PO HS PRN PRN Reason: Insomnia Cranberry 300mg 300 mg PO BID Potassium 99 mg PO DAILY Lisinopril [Zestril] 10 mg PO QAM Atorvastatin [Lipitor] 40 mg PO HS #30 tab Prochlorperazine [Compazine] 10 mg PO Q8H PRN PRN Reason: Nausea Promethazine HCl [Phenergan Syrup] 6.25 mg PO Q6H PRN PRN Reason: ALLERGIES amLODIPine [Norvasc] 5 mg PO DAILY #30 tab HYDROcodone/APAP 10-325MG [[place] 10-325] 1 - 2 tab PO Q4-6H PRN PRN Reason: Pain Pantoprazole [Protonix] 40 mg PO BID Insulin Glargine [Lantus] 30 unit SQ HS Insulin Aspart [NovoLOG Flexpen] 18 unit SQ AC-BRKFST Insulin Aspart [NovoLOG Flexpen] 21 units SQ AC-LUNCH Insulin Aspart [NovoLOG Flexpen] 18 units SQ AC-SUPPER Venlafaxine HCl [Effexor] 75 mg PO DAILY Discharge Medication List Cholecalciferol [Vitamin D3 (25 Mcg = 1000 Iu)] 3,000 unit PO DAILY@0700 12/01/14 [History] Ondansetron [Zofran] 4 mg PO Q6H PRN 10/12/15 [History] Metoprolol Succinate (ER) [Toprol XL] 50 mg PO HS 07/06/17 [History] Meclizine [Antivert] 25 mg PO QID PRN 11/26/17 [History] Magnesium Oxide 400 mg PO QAM 02/26/18 [History] Hydrocortisone [Cortef] 10 mg PO AC-LUNCH 05/18/18 [History] Hydrocortisone [Cortef] 15 mg PO AC-BRKFST 05/18/18 [History] Hydrocortisone [Cortef] 5 mg PO HS 06/26/18 [History] Aspirin 81 mg PO DAILY #0 07/02/18 [Rx] Budesonide [Pulmicort Flexhaler] 1 puff INHALATION RT-BID PRN 08/12/18 [History] Glucagon Emergency Kit 1 mg IM ONCE PRN 08/12/18 [History] Methocarbamol [Robaxin-750] 750 mg PO TID PRN 09/09/18 [History] Cranberry 300mg 300 mg PO BID 10/08/18 [History] Ferrous Sulfate [Iron (65 MG Elemental)] 325 mg PO DAILY 10/08/18 [History] Folic Acid 0.4 mg PO DAILY 10/08/18 [History] L.acidoph,Paracasei, B.lactis [Probiotic] 2 cap PO BID 10/08/18 [History] Melatonin 5 mg PO HS PRN 10/08/18 [History] Multivitamins, Thera Liquid [Theragran Liquid (formulary)] 30 ml PO DAILY 10/08/18 [History] Potassium 99 mg PO DAILY 10/08/18 [History] Thiamine [Vitamin B-1] 100 mg PO DAILY 10/08/18 [History] Vitamin B-Complex Drops 1 drop PO BID 10/08/18 [History] Lisinopril [Zestril] 10 mg PO QAM 11/08/18 [History] Atorvastatin [Lipitor] 40 mg PO HS #30 tab 11/16/18 [Rx] Prochlorperazine [Compazine] 10 mg PO Q8H PRN 12/08/18 [History] Promethazine HCl [Phenergan Syrup] 6.25 mg PO Q6H PRN 12/08/18 [History] amLODIPine [Norvasc] 5 mg PO DAILY #30 tab 12/13/18 [Rx] HYDROcodone/APAP 10-325MG [[place] 10-325] 1 - 2 tab PO Q4-6H PRN 12/26/18 [History] Insulin Aspart [NovoLOG Flexpen] 18 unit SQ AC-BRKFST 01/29/19 [History] Insulin Aspart [NovoLOG Flexpen] 18 units SQ AC-SUPPER 01/29/19 [History] Insulin Aspart [NovoLOG Flexpen] 21 units SQ AC-LUNCH 01/29/19 [History] Insulin Glargine [Lantus] 30 unit SQ HS 01/29/19 [History] Pantoprazole [Protonix] 40 mg PO BID 01/29/19 [History] Venlafaxine HCl [Effexor] 75 mg PO DAILY 03/12/19 [History] Ertapenem [INVanz] 1 gm IVPB Q24H #0 vial 03/16/19 [Rx] metroNIDAZOLE [Flagyl] 500 mg PO TID #30 tab 03/16/19 [Rx] Follow up Appointment(s)/Referral(s): Allyson Guardado MD [Primary Care Provider] - 1-2 days (Patient to call Dr. Guardado's office Monday to schedule follow up appointment. The office is closed at time of discharge.) [facility], [NON-STAFF] - [facility],Infusion [NON-STAFF] - Chalino Osman MD [STAFF PHYSICIAN] - 1 Week (Patient to call Dr. Osman's office Monday to schedule follow up appointment. The office is closed at time of discharge. ) Patient Instructions/Handouts: Metronidazole (By mouth), Kidney Infection (DC), Acute Nausea and Vomiting (DC) Activity/Diet/Wound Care/Special Instructions: Please come into [facility] (Dr. Osman's office) on Monday03/17/19 at 9:30 AM. Discharge Disposition: HOME SELF-CARE
--- NOTE | 2019-03-16 15:26 | PN ---
PROGRESS NOTE DATE OF SERVICE: 03/16/2019 REASON FOR FOLLOWUP: ESBL Escherichia coli urinary tract infection. INTERVAL HISTORY: The patient is currently afebrile. The patient is breathing comfortably. The patient denies having any chest pain or cough. No nausea, no vomiting. Her abdominal pain has improved. No diarrhea. PHYSICAL EXAMINATION: Blood pressure 150/76, pulse of 64, temperature 98. She is 92% on room air. General description is an elderly female up in the room in no distress. RESPIRATORY SYSTEM: Unlabored breathing. Clear to auscultation anteriorly. HEART: S1, S2. Regular rate and rhythm. ABDOMEN: Soft. No tenderness. LABS: Hemoglobin is 10, white count 5.5. BUN of 8, creatinine 0.45. DIAGNOSTIC IMPRESSION AND PLAN: Patient with extended-spectrum beta-lactamase Escherichia coli urinary tract infection. Patient seems to have some clinical improvement. Currently on Invanz; to continue for another week as an outpatient and monitor her clinical course closely. Continue with supportive care. MMODL / IJN: [id number] /
== END 2019-03-16 16:49 | disposition home or self-care (01) | DRG 872 ==
LOC: EC 09:58 → 4MS4W 14:56 → 3NMEDONC 03-15 16:42
PROVIDERS: ADMIT Family Medicine; ATTEND Family Medicine
PROC: 06HY33Z Insertion of Infusion Device into Lower Vein, Percutaneous Approach (ICD-10-PCS; principal; 2019-03-13 11:00)
PROC: B54BZZA Ultrasonography of Right Lower Extremity Veins, Guidance (ICD-10-PCS; principal; 2019-03-13 11:00)
DX: A41.9 Sepsis, unspecified organism (principal); E27.40 Unspecified adrenocortical insufficiency; N12 Tubulo-interstitial nephritis, not specified as acute or chronic; B96.20 Unspecified Escherichia coli [E. coli] as the cause of diseases classified elsewhere; E11.9 Type 2 diabetes mellitus without complications; E78.5 Hyperlipidemia, unspecified; G47.33 Obstructive sleep apnea (adult) (pediatric); G89.29 Other chronic pain; I10 Essential (primary) hypertension; J44.9 Chronic obstructive pulmonary disease, unspecified; K52.9 Noninfective gastroenteritis and colitis, unspecified; Z16.12 Extended spectrum beta lactamase (ESBL) resistance; R53.1 Weakness; M79.7 Fibromyalgia; M19.90 Unspecified osteoarthritis, unspecified site; Z79.4 Long term (current) use of insulin; Z79.82 Long term (current) use of aspirin; Z79.899 Other long term (current) drug therapy; Z80.49 Family history of malignant neoplasm of other genital organs; Z82.49 Family history of ischemic heart disease and other diseases of the circulatory system; Z83.3 Family history of diabetes mellitus; Z87.440 Personal history of urinary (tract) infections; Z87.442 Personal history of urinary calculi; Z90.710 Acquired absence of both cervix and uterus; Z88.1 Allergy status to other antibiotic agents; Z88.5 Allergy status to narcotic agent; Z88.0 Allergy status to penicillin; Z88.2 Allergy status to sulfonamides; Z88.8 Allergy status to other drugs, medicaments and biological substances; Z99.89 Dependence on other enabling machines and devices; Z87.01 Personal history of pneumonia (recurrent); Z86.718 Personal history of other venous thrombosis and embolism; Z86.14 Personal history of Methicillin resistant Staphylococcus aureus infection; Z90.89 Acquired absence of other organs; Z90.49 Acquired absence of other specified parts of digestive tract
CPT/HCPCS: 36410; 36415; 74018; 74176; 76937; 80048; 80053; 81001; 82150; 83036; 83605; 83690; 83735; 85025; 87040; 87077; 87086; 87186; 87324; 96361; 96365; 96375; 96376; 99285

== ENCOUNTER → 2019-03-22 | Outpatient (CLI) | payer MEDICARE, BC | END | disposition home or self-care (01) | LOC: LABWHC1 11:42 | PROVIDERS: ATTEND Internal Medicine Infectious Disease | DX: R19.7 Diarrhea, unspecified (principal); N12 Tubulo-interstitial nephritis, not specified as acute or chronic; Z88.5 Allergy status to narcotic agent; Z88.1 Allergy status to other antibiotic agents; Z88.6 Allergy status to analgesic agent; Z88.0 Allergy status to penicillin; Z88.2 Allergy status to sulfonamides; Z88.8 Allergy status to other drugs, medicaments and biological substances | CPT/HCPCS: 87045; 87046 ==

== ENCOUNTER 2019-03-27 11:04 | Emergency (ER) | payer MEDICARE, BC ==
[2019-03-27 11:21] VITALS: TEMP 97.9
[2019-03-27] MEDS ORDERED: HYDROmorphone 1 MG/ML 1 ML SYRINGE IM STA (11:41)
--- NOTE | 2019-03-27 11:44 | ED ---
Fall HPI - General Chief Complaint: Fall Stated Complaint: fall/hit head Time Seen by Provider: 03/27/19 11:25 Source: patient, RN notes reviewed Mode of arrival: ambulatory Limitations: no limitations - History of Present Illness Initial Comments: This a 68-year-old female presents to the emergency Department for fall, injury. Patient states she was at her doctor's office and went to go give a urine sample and states that she lost her balance causing her fall. Patient states that she did not pass out. She did strike the right side of her head, right side of her ribs, pelvis and right knee. She does not take any blood thinners there no complaints of dizziness, chest pain, palpitations. She states this was a mechanical fall as she just lost her balance and fell off the edge. Patient denies any upper extremity injury. Patient is requesting something for pain. Patient offers no other complaints. - Related Data Home Medications Medication Instructions Recorded Confirmed Cholecalciferol [Vitamin D3 (25 3,000 unit PO DAILY@0700 12/01/14 03/12/19 Mcg = 1000 Iu)] Ondansetron [Zofran] 4 mg PO Q6H PRN 10/12/15 03/12/19 Metoprolol Succinate (ER) [Toprol 50 mg PO HS 07/06/17 03/12/19 XL] Meclizine [Antivert] 25 mg PO QID PRN 11/26/17 03/12/19 Magnesium Oxide 400 mg PO QAM 02/26/18 03/12/19 Hydrocortisone [Cortef] 10 mg PO AC-LUNCH 05/18/18 03/12/19 Hydrocortisone [Cortef] 15 mg PO AC-BRKFST 05/18/18 03/12/19 Hydrocortisone [Cortef] 5 mg PO HS 06/26/18 03/12/19 Budesonide [Pulmicort Flexhaler] 1 puff INHALATION RT-BID PRN 08/12/18 03/12/19 Glucagon Emergency Kit 1 mg IM ONCE PRN 08/12/18 03/12/19 Methocarbamol [Robaxin-750] 750 mg PO TID PRN 09/09/18 03/12/19 Cranberry 300mg 300 mg PO BID 10/08/18 03/12/19 Ferrous Sulfate [Iron (65 MG 325 mg PO DAILY 10/08/18 03/12/19 Elemental)] Folic Acid 0.4 mg PO DAILY 10/08/18 03/12/19 L.acidoph,Paracasei, B.lactis 2 cap PO BID 10/08/18 03/12/19 [Probiotic] Melatonin 5 mg PO HS PRN 10/08/18 03/12/19 Multivitamins, Thera Liquid 30 ml PO DAILY 10/08/18 03/12/19 [Theragran Liquid (formulary)] Potassium 99 mg PO DAILY 10/08/18 03/12/19 Thiamine [Vitamin B-1] 100 mg PO DAILY 10/08/18 03/12/19 Vitamin B-Complex Drops 1 drop PO BID 10/08/18 03/12/19 Lisinopril [Zestril] 10 mg PO QAM 11/08/18 03/12/19 Prochlorperazine [Compazine] 10 mg PO Q8H PRN 12/08/18 03/12/19 Promethazine HCl [Phenergan Syrup] 6.25 mg PO Q6H PRN 12/08/18 03/12/19 HYDROcodone/APAP 10-325MG [[place] 1 - 2 tab PO Q4-6H PRN 12/26/18 03/12/19 10-325] Insulin Aspart [NovoLOG Flexpen] 18 unit SQ AC-BRKFST 01/29/19 03/12/19 Insulin Aspart [NovoLOG Flexpen] 18 units SQ AC-SUPPER 01/29/19 03/12/19 Insulin Aspart [NovoLOG Flexpen] 21 units SQ AC-LUNCH 01/29/19 03/12/19 Insulin Glargine [Lantus] 30 unit SQ HS 01/29/19 03/12/19 Pantoprazole [Protonix] 40 mg PO BID 01/29/19 03/12/19 Venlafaxine HCl [Effexor] 75 mg PO DAILY 03/12/19 03/12/19 Previous Rx's Medication Instructions Recorded Aspirin 81 mg PO DAILY #0 07/02/18 Atorvastatin [Lipitor] 40 mg PO HS #30 tab 11/16/18 amLODIPine [Norvasc] 5 mg PO DAILY #30 tab 12/13/18 Ertapenem [INVanz] 1 gm IVPB Q24H #0 vial 03/16/19 metroNIDAZOLE [Flagyl] 500 mg PO TID #30 tab 03/16/19 Allergies Allergy/AdvReac Type Severity Reaction Status Date / Time butorphanol tartrate Allergy BLISTERS Verified 03/27/19 11:21 [From Stadol] IN MOUTH ceftriaxone [From Rocephin] Allergy Unknown Verified 03/27/19 11:21 clarithromycin [From Biaxin] Allergy Rash/Hives Verified 03/27/19 11:21 codeine Allergy Rash/Hives Verified 03/27/19 11:21 ergotamine tartrate Allergy Unknown Verified 03/27/19 11:21 [From Cafergot] erythromycin base Allergy RASH, GI Verified 03/27/19 11:21 [From E-Mycin] SYMPTOMS ketorolac tromethamine Allergy Rash/Hives Verified 03/27/19 11:21 [From Toradol] liraglutide [From Victoza] Allergy Rash/Hives Verified 03/27/19 11:21 morphine Allergy Rash/Hives Verified 03/27/19 11:21 Penicillins Allergy Rash/Hives Verified 03/27/19 11:21 pentazocine lactate Allergy SEVERE Verified 03/27/19 11:21 [From Talwin] BLISTERS IN MOUTH pregabalin [From Lyrica] Allergy Rash/Hives Verified 03/27/19 11:21 propoxyphene HCl Allergy Rash/Hives Verified 03/27/19 11:21 [From Darvon] Sulfa (Sulfonamide Allergy Rash/Hives Verified 03/27/19 11:21 Antibiotics) tramadol Allergy Unknown Verified 03/27/19 11:21 monosodium glutamate [MSG] AdvReac Nausea & Verified 03/27/19 11:21 Vomiting nalbuphine HCl [From Nubain] AdvReac Nausea & Verified 03/27/19 11:21 Vomiting Review of Systems ROS Statement: Those systems with pertinent positive or pertinent negative responses have been documented in the HPI. ROS Other: All systems not noted in ROS Statement are negative. Past Medical History Past Medical History: COPD, Diabetes Mellitus, Deep Vein Thrombosis (DVT), Fibromyalgia, Hyperlipidemia, Hypertension, Osteoarthritis (OA), Pneumonia, Renal Disease, Sleep Apnea/CPAP/BIPAP, Vascular Disorder Additional Past Medical History / Comment(s): Pt recently admitted to [facility] on 12/10/18 with acute [id number], L eye conjunctivitis, gait instability. 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 Past Anesthesia/Blood Transfusion Reactions: Motion Sickness Additional Past Anesthesia/Blood Transfusion Reaction / Comment(s): never recieved blood Past Psychological History: No Psychological Hx Reported Smoking Status: Never smoker Past Alcohol Use History: None Reported Past Drug Use History: None Reported - Past Family History Father Family Medical History: Coronary Artery Disease (CAD), CVA/TIA, Diabetes Mellitus, Myocardial Infarction (CO), Pneumonia Additional Family Medical History / Comment(s): Father at the age of 78yrs from CO and pneumonia. Mother Family Medical History: Cancer Additional Family Medical History / Comment(s): Mother had uterine cancer. She recently at the age of 96yrs old. General Exam Limitations: no limitations General appearance: alert, in no apparent distress Head exam: Present: normocephalic. Absent: atraumatic, normal inspection (Large hematoma right side of forehead, right temporal region) Eye exam: Present: normal appearance, PERRL, EOMI. Absent: scleral icterus, conjunctival injection, periorbital swelling ENT exam: Present: normal exam, normal oropharynx, mucous membranes moist, TM's normal bilaterally Neck exam: Present: normal inspection, full ROM. Absent: tenderness, meningismus, lymphadenopathy Respiratory exam: Present: normal lung sounds bilaterally, chest wall tenderness (Right). Absent: respiratory distress, wheezes, rales, rhonchi, stridor Cardiovascular Exam: Present: regular rate (Patient was tachycardic on triage though regular rate and exam), normal rhythm, normal heart sounds. Absent: systolic murmur, diastolic murmur, rubs, gallop, clicks GI/Abdominal exam: Present: soft, normal bowel sounds. Absent: distended, tenderness, guarding, rebound, rigid Extremities exam: Present: other (Mild tenderness the right hip though full range of motion full-strength neurovascular intact lower extremities) Back exam: Present: full ROM. Absent: tenderness, paraspinal tenderness, vertebral tenderness Neurological exam: Present: alert, oriented X3, CN II-XII intact, reflexes normal, other (Finger to nose intact bilaterally without shooting). Absent: motor sensory deficit Skin exam: Present: warm, dry, intact, normal color. Absent: rash Course Vital Signs 03/27/19 11:18 Temperature 97.9 F Pulse Rate 114 H Respiratory 20 Rate Blood Pressure 141/77 O2 Sat by Pulse 95 Oximetry Medical Decision Making - Medical Decision Making Imaging was obtained was negative for acute fracture or intracranial hemorrhage or mass effect. Patient will be discharged this time return parameters discussed. Disposition Clinical Impression: Fall, Head injury, Contusion, hip, Contusion of right knee Disposition: HOME SELF-CARE Condition: Stable Instructions (If sedation given, give patient instructions): Head Injury (ED) Additional Instructions: Please return to the Emergency Department if symptoms worsen or any other concerns. Is patient prescribed a controlled substance at d/c from ED?: No Referrals: Allyson Guardado MD [Primary Care Provider] - 1-2 days Time of Disposition: 12:45
--- NOTE | 2019-03-27 12:26 | XR ---
EXAMINATION TYPE: XR knee complete RT DATE OF EXAM: 03/27/2019 CLINICAL HISTORY: Right knee with abrasion and contusion after fall TECHNIQUE: Three views of the right knee are obtained. COMPARISON: None. FINDINGS: There is no acute fracture/dislocation evident in right knee. The tri-compartment joint s paces appear aligned with mild medial compartment joint space narrowing. The overlying soft tissue d emonstrates mild prepatellar soft tissue swelling. Extensive atherosclerosis is seen of the femoral a rtery and its branches. Phleboliths are also seen. IMPRESSION: Mild peripatellar soft tissue swelling without acute fracture or dislocation in the right knee.
--- NOTE | 2019-03-27 12:27 | CT ---
EXAMINATION TYPE: CT brain mehran wo con DATE OF EXAM: 03/27/2019 COMPARISON: 12/08/2018 HISTORY: Pain, Fall right side trauma CT DLP: 1256.4 mGycm Automated exposure control for dose reduction was used. TECHNIQUE: CT scan of the head and cervical spine are performed without contrast. FINDINGS: There is a large soft tissue hematoma overlying the right frontal bone. No acute fracture . No acute intracranial hemorrhage, mass effect or midline shift. Mild generalized degenerative change. Low-attenuation the white matter is nonspecific but most typica l remote microvascular ischemia. Areas of low attenuation involving the basal ganglia bilaterally mos t typical remote lacunar infarct. Intracranial atherosclerotic changes noted. Alignment is anatomic. There is degenerative disc disease C4-5, C5-6 and C6-C7 with posterior spondyl osis particularly marked at C5-C6. Uncovertebral joint hypertrophy and facet arthropathy noted. Ramal encroachment C4-C5 on the left and C5-C6 on the right. Odontoid intact. Atherosclerotic changes of t he visualized carotid arteries. IMPRESSION: 1. There is no acute fracture or dislocation evident in the cervical spine. Multilevel degenerative d isc disease. 2. No acute intracranial hemorrhage, mass effect, or midline shift is seen. Degenerative and nonspeci fic white matter changes most typical of remote white matter ischemia. 3. Large soft tissue hematoma overlying the right frontal bone.
--- NOTE | 2019-03-27 12:28 | XR ---
EXAMINATION TYPE: XR chest 1V DATE OF EXAM: 03/27/2019 COMPARISON: Prior chest x-ray 01/09/2019 HISTORY: Trauma and pain TECHNIQUE: Single frontal view of the chest is obtained. FINDINGS: Patient is rotated. Distal right clavicle may been resected, stable. An 12/08/2018 There is no focal air space opacity, pleural effusion, or pneumothorax seen. The cardiac silhouette size is s table, size may be accentuated by rotation. The osseous structures are stable, cortical irregularit y of the 2 right sixth rib is a stable finding and is likely due to remote fracture. There may be a s scooter curvature. IMPRESSION: No acute process.
--- NOTE | 2019-03-27 12:29 | XR ---
EXAMINATION TYPE: XR pelvis AP view DATE OF EXAM: 03/27/2019 CLINICAL HISTORY: Pelvic pain after fall TECHNIQUE: A single AP view of the pelvis is obtained. COMPARISON: 10/26/2009 right hip radiographs. FINDINGS: There are fracture deformities of the left superior and inferior pubic ramus and right supe rior and inferior pubic ramus however there appears to be callus formation surrounding these fracture s. Right-sided fractures and partial visualization of a left-sided fractures are seen on the prior of 10/26/2009. Postsurgical changes seen of the lumbosacral junction, partially visualized. Proximal femurs appear i ntact. Myositis ossificans is presumed to be located in the right gluteal muscles. Phleboliths, ather osclerosis, and injection granulomas are also seen. Sacroiliac joints are symmetric. No dilated bowel . Diffuse osseous demineralization is noted. IMPRESSION: There is no acute fracture or dislocation in the pelvis. Old fracture deformities of the bilateral pubic rami, diffuse osseous demineralization, and postsurgical changes of the lumbosacral spine.
[2019-03-27 13:28] VITALS: BP 131/76; PULSE 70; RESP 16
== END 2019-03-27 13:20 | disposition home or self-care (01) ==
LOC: EC 11:04
DX: S09.90XA Unspecified injury of head, initial encounter (principal); S80.01XA Contusion of right knee, initial encounter; S70.01XA Contusion of right hip, initial encounter; M79.7 Fibromyalgia; E78.5 Hyperlipidemia, unspecified; I10 Essential (primary) hypertension; M19.90 Unspecified osteoarthritis, unspecified site; G47.33 Obstructive sleep apnea (adult) (pediatric); J44.9 Chronic obstructive pulmonary disease, unspecified; E11.9 Type 2 diabetes mellitus without complications; Z79.4 Long term (current) use of insulin; Z79.82 Long term (current) use of aspirin; Z79.899 Other long term (current) drug therapy; Z79.52 Long term (current) use of systemic steroids; Z88.1 Allergy status to other antibiotic agents; Z88.2 Allergy status to sulfonamides; Z88.0 Allergy status to penicillin; Z87.442 Personal history of urinary calculi; Z88.5 Allergy status to narcotic agent; Z88.8 Allergy status to other drugs, medicaments and biological substances; Z88.6 Allergy status to analgesic agent; Z86.718 Personal history of other venous thrombosis and embolism; Z99.89 Dependence on other enabling machines and devices; Z86.14 Personal history of Methicillin resistant Staphylococcus aureus infection; W01.10XA Fall on same level from slipping, tripping and stumbling with subsequent striking against unspecified object, initial encounter; Y93.89 Activity, other specified; Y92.531 Health care provider office as the place of occurrence of the external cause
CPT/HCPCS: 72170; 73562; 71045; 72125; 70450; 99284; 96372; J1170

== ENCOUNTER 2019-03-29 12:37 | Emergency (ER) | payer MEDICARE, BC ==
--- NOTE | 2019-03-29 13:22 | XR ---
EXAMINATION TYPE: XR knee 4V RT DATE OF EXAM: 03/29/2019 CLINICAL HISTORY: Fall injury with pain and swelling. TECHNIQUE: Three views of the right knee are obtained. Fourth sunrise view. COMPARISON: Right knee x-ray 2 today's earlier. FINDINGS: There is no acute fracture/dislocation evident in right knee. There is persistent mild to moderate tricompartment joint space loss without significant spurring. Posterior vascular calcificati on redemonstrated. Patellar articulation satisfactory sunrise view. IMPRESSION: There is no acute fracture or dislocation in the right knee. No significant change from prior.
[2019-03-29] MEDS ORDERED: HYDROmorphone 0.5 MG/0.5 ML SYRINGE IM STA ×2 (14:05→15:06)
--- NOTE | 2019-03-29 14:07 | CT ---
EXAMINATION TYPE: CT facial bones wo con DATE OF EXAM: 03/29/2019 COMPARISON: None HISTORY: Facial injury, fall CT DLP: 572 mGycm Automated exposure control for dose reduction was used. TECHNIQUE: CT scan of the sinuses is performed without contrast, axial images are obtained, coronal r eformatted images are also reviewed. FINDINGS: There is soft tissue present at the ostiomeatal unit on the left, extensive inflammatory ch umair present within the left maxillary sinus. There is likely associated calcification suggesting chr onic sinusitis. The orbits are intact. Increased attenuation within the subcutaneous fat over the rig ht maxillary soft tissues is noted likely due to local ecchymosis, bilaterally increased attenuation is noted in the infraorbital locations and orbital soft tissue preseptal locations. Cerebral vascular calcifications are present. There is evidence of cortical atrophy and possibly focal encephalomalaci a noted incidentally within the right brain. Temporal mandibular joints show osteoarthritic change. A uditory ossicles show symmetric appearance. No erosion of scutum. No thickening of the tympanic membr anes. Cerumen is present within the external auditory canal on the left. IMPRESSION: Soft tissue swelling, sinusitis. No evident fracture. Additional findings above.
--- NOTE | 2019-03-29 14:10 | CT ---
EXAMINATION TYPE: CT knee RT wo con DATE OF EXAM: 03/29/2019 COMPARISON: Plain film same date HISTORY: Rt knee pain from fall CT DLP: 100.7 mGycm Automated exposure control for dose reduction was used. Helical acquisition through the right knee. C oronal and sagittal reconstructions. FINDINGS: Bone mineralization is reduced, somewhat permeative appearance. Alignment and joint spaces are mainta ined. There are dense vascular calcifications present. Soft tissue swelling is noted. Soft tissue krishan cification may represent phlebolith anterior to the proximal tibia. IMPRESSION: SUSPECT OSTEOPOROSIS. NO FRACTURE OR DISLOCATION
--- NOTE | 2019-03-29 15:06 | ED ---
General Adult HPI - General Chief complaint: Fall Stated complaint: Facial injury-Fall Time Seen by Provider: 03/29/19 12:52 Source: patient, RN notes reviewed Mode of arrival: ambulatory Limitations: no limitations - History of Present Illness Initial comments: 68-year-old female with extensive past medical history presents to the emergency department for chief complaint of fall. Patient fell today after his office. States she tripped and lost balance and fell in her bilateral knees and right side of her head. Patient had negative workup. The emergency department at that time. However since then has had worsening bruising into the right eye. Patient is also complaining about worsening pain of the right knee. Patient has no other complaints at this time including shortness of breath, chest pain, abdominal pain, nausea or vomiting, headache, or visual changes. - Related Data Home Medications Medication Instructions Recorded Confirmed Cholecalciferol [Vitamin D3 (25 3,000 unit PO DAILY@0700 12/01/14 03/27/19 Mcg = 1000 Iu)] Ondansetron [Zofran] 4 mg PO Q6H PRN 10/12/15 03/27/19 Metoprolol Succinate (ER) [Toprol 50 mg PO HS 07/06/17 03/27/19 XL] Meclizine [Antivert] 25 mg PO QID PRN 11/26/17 03/27/19 Magnesium Oxide 400 mg PO QAM 02/26/18 03/27/19 Hydrocortisone [Cortef] 10 mg PO AC-LUNCH 05/18/18 03/27/19 Hydrocortisone [Cortef] 15 mg PO AC-BRKFST 05/18/18 03/27/19 Hydrocortisone [Cortef] 5 mg PO HS 06/26/18 03/27/19 Budesonide [Pulmicort Flexhaler] 1 puff INHALATION RT-BID PRN 08/12/18 03/27/19 Glucagon Emergency Kit 1 mg IM ONCE PRN 08/12/18 03/27/19 Methocarbamol [Robaxin-750] 750 mg PO TID PRN 09/09/18 03/27/19 Cranberry 300mg 300 mg PO BID 10/08/18 03/27/19 Ferrous Sulfate [Iron (65 MG 325 mg PO DAILY 10/08/18 03/27/19 Elemental)] Folic Acid 0.4 mg PO DAILY 10/08/18 03/27/19 L.acidoph,Paracasei, B.lactis 2 cap PO BID 10/08/18 03/27/19 [Probiotic] Melatonin 5 mg PO HS PRN 10/08/18 03/27/19 Multivitamins, Thera Liquid 30 ml PO DAILY 10/08/18 03/27/19 [Theragran Liquid (formulary)] Potassium 99 mg PO DAILY 10/08/18 03/27/19 Thiamine [Vitamin B-1] 100 mg PO DAILY 10/08/18 03/27/19 Vitamin B-Complex Drops 1 drop PO BID 10/08/18 03/27/19 Lisinopril [Zestril] 10 mg PO QAM 11/08/18 03/27/19 Prochlorperazine [Compazine] 10 mg PO Q8H PRN 12/08/18 03/27/19 Promethazine HCl [Phenergan Syrup] 6.25 mg PO Q6H PRN 12/08/18 03/27/19 HYDROcodone/APAP 10-325MG [[place] 1 - 2 tab PO Q4-6H PRN 12/26/18 03/27/19 10-325] Insulin Aspart [NovoLOG Flexpen] 18 unit SQ AC-BRKFST 01/29/19 03/27/19 Insulin Aspart [NovoLOG Flexpen] 18 units SQ AC-SUPPER 01/29/19 03/27/19 Insulin Aspart [NovoLOG Flexpen] 21 units SQ AC-LUNCH 01/29/19 03/27/19 Insulin Glargine [Lantus] 30 unit SQ HS 01/29/19 03/27/19 Pantoprazole [Protonix] 40 mg PO BID 01/29/19 03/27/19 Venlafaxine HCl [Effexor] 75 mg PO DAILY 03/12/19 03/27/19 Previous Rx's Medication Instructions Recorded Aspirin 81 mg PO DAILY #0 07/02/18 Atorvastatin [Lipitor] 40 mg PO HS #30 tab 11/16/18 amLODIPine [Norvasc] 5 mg PO DAILY #30 tab 12/13/18 Allergies Allergy/AdvReac Type Severity Reaction Status Date / Time butorphanol tartrate Allergy BLISTERS Verified 03/29/19 12:45 [From Stadol] IN MOUTH ceftriaxone [From Rocephin] Allergy Unknown Verified 03/29/19 12:45 clarithromycin [From Biaxin] Allergy Rash/Hives Verified 03/29/19 12:45 codeine Allergy Rash/Hives Verified 03/29/19 12:45 ergotamine tartrate Allergy Unknown Verified 03/29/19 12:45 [From Cafergot] erythromycin base Allergy RASH, GI Verified 03/29/19 12:45 [From E-Mycin] SYMPTOMS ketorolac tromethamine Allergy Rash/Hives Verified 03/29/19 12:45 [From Toradol] liraglutide [From Victoza] Allergy Rash/Hives Verified 03/29/19 12:45 morphine Allergy Rash/Hives Verified 03/29/19 12:45 Penicillins Allergy Rash/Hives Verified 03/29/19 12:45 pentazocine lactate Allergy SEVERE Verified 03/29/19 12:45 [From Talwin] BLISTERS IN MOUTH pregabalin [From Lyrica] Allergy Rash/Hives Verified 03/29/19 12:45 propoxyphene HCl Allergy Rash/Hives Verified 03/29/19 12:45 [From Darvon] Sulfa (Sulfonamide Allergy Rash/Hives Verified 03/29/19 12:45 Antibiotics) tramadol Allergy Unknown Verified 03/29/19 12:45 monosodium glutamate [MSG] AdvReac Nausea & Verified 03/29/19 12:45 Vomiting nalbuphine HCl [From Nubain] AdvReac Nausea & Verified 03/29/19 12:45 Vomiting Review of Systems ROS Statement: Those systems with pertinent positive or pertinent negative responses have been documented in the HPI. ROS Other: All systems not noted in ROS Statement are negative. Past Medical History Past Medical History: COPD, Diabetes Mellitus, Deep Vein Thrombosis (DVT), Fibromyalgia, Hyperlipidemia, Hypertension, Osteoarthritis (OA), Pneumonia, Renal Disease, Sleep Apnea/CPAP/BIPAP, Vascular Disorder Additional Past Medical History / Comment(s): Pt recently admitted to [facility] on 12/10/18 with acute NBA-DXOA-Bsvza, L eye conjunctivitis, gait instability. 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 Past Anesthesia/Blood Transfusion Reactions: Motion Sickness Additional Past Anesthesia/Blood Transfusion Reaction / Comment(s): never recieved blood Past Psychological History: No Psychological Hx Reported Smoking Status: Never smoker Past Alcohol Use History: None Reported Past Drug Use History: None Reported - Past Family History Father Family Medical History: Coronary Artery Disease (CAD), CVA/TIA, Diabetes Mellitus, Myocardial Infarction ([place]), Pneumonia Additional Family Medical History / Comment(s): Father at the age of 78yrs from [place] and pneumonia. Mother Family Medical History: Cancer Additional Family Medical History / Comment(s): Mother had uterine cancer. She recently at the age of 96yrs old. General Exam Limitations: no limitations General appearance: alert, in no apparent distress Head exam: Present: normocephalic, normal inspection. Absent: atraumatic (Patient has hematoma noted of right frontal bone.) Eye exam: Present: normal appearance, PERRL, EOMI, periorbital swelling (Right joão-orbital edema with ecchymosis. Ecchymosis noted to The left periorbital area as well. Globe of the right eye appears normal.). Absent: scleral icterus, conjunctival injection ENT exam: Present: normal exam, normal oropharynx, mucous membranes moist, TM's normal bilaterally (Negative hemotympanum), normal external ear exam Neck exam: Present: normal inspection, full ROM. Absent: tenderness, meningismus, lymphadenopathy Respiratory exam: Present: normal lung sounds bilaterally. Absent: respiratory distress, wheezes, rales, rhonchi, stridor Cardiovascular Exam: Present: regular rate, normal rhythm, normal heart sounds. Absent: systolic murmur, diastolic murmur, rubs, gallop, clicks Extremities exam: Present: full ROM (Full range of motion of the right knee.), normal capillary refill (Capillary refill less than, tibial pulse 2+ in the right lower extremity.), other (Patient is limping on the right knee and complaining of pain when walking.). Absent: tenderness, pedal edema, joint swelling, calf tenderness Neurological exam: Present: alert, oriented X3, other (GCS 15) Psychiatric exam: Present: normal affect, normal mood Course Vital Signs 03/29/19 12:43 Temperature 97.9 F Pulse Rate 118 H Respiratory 20 Rate Blood Pressure 140/86 O2 Sat by Pulse 96 Oximetry Medical Decision Making - Medical Decision Making Previous imaging was reviewed including CT brain and C-spine, x-ray of the chest, x-ray of the pelvis, an x-ray of the right knee. These are all negative for acute fracture. On presentation today physical exam is as documented. Patient is concerned because hematoma over the right frontal bone has drain inferiorly into her right periorbital area. Globe appears normal. Negative hemotympanum. No neck pain or headache at this time. Facial CT was obtained which showed soft tissue swelling without acute fracture. There is inflammatory change within the left maxillary sinus but this appears chronic as there are ca lcifications. CT of the right knee was obtained after obtaining a negative right knee x-ray which did not show any occult tibial plateau fracture. Patient was given pain medication. Patient has been better at this time will be discharged home to follow up with primary care as orthopedics for right knee pain. Disposition Clinical Impression: Fall, Contusion of right knee, Periorbital hematoma of both eyes Disposition: HOME SELF-CARE Condition: Good Instructions (If sedation given, give patient instructions): Black Eye (ED), Knee Pain (ED) Additional Instructions: Please continue to take your norco for pain. Follow-up with primary care or orthopedics in one to 2 days. Return to the emergency department if you have any worsening symptoms. Is patient prescribed a controlled substance at d/c from ED?: No Referrals: Allyson Guardado MD [Primary Care Provider] - 1-2 days Izaiah Diego DO [Doctor of Osteopathic Medicine] - 1-2 days Time of Disposition: 15:05
[2019-03-29] MEDS ORDERED: amLODIPine 5 MG TAB PO STA (15:46)
[2019-03-29 15:51] VITALS: BP 155/100; PULSE 106; RESP 18; TEMP 98.5
== END 2019-03-29 15:49 | disposition home or self-care (01) ==
LOC: EC 12:37
DX: S00.12XA Contusion of left eyelid and periocular area, initial encounter (principal); S00.11XA Contusion of right eyelid and periocular area, initial encounter; S80.01XA Contusion of right knee, initial encounter; J34.89 Other specified disorders of nose and nasal sinuses; J44.9 Chronic obstructive pulmonary disease, unspecified; E11.9 Type 2 diabetes mellitus without complications; G47.33 Obstructive sleep apnea (adult) (pediatric); I10 Essential (primary) hypertension; M19.90 Unspecified osteoarthritis, unspecified site; E27.40 Unspecified adrenocortical insufficiency; Z88.0 Allergy status to penicillin; Z88.1 Allergy status to other antibiotic agents; Z88.2 Allergy status to sulfonamides; Z88.5 Allergy status to narcotic agent; Z88.6 Allergy status to analgesic agent; Z88.8 Allergy status to other drugs, medicaments and biological substances; Z91.02 Food additives allergy status; Z79.4 Long term (current) use of insulin; Z79.51 Long term (current) use of inhaled steroids; Z79.52 Long term (current) use of systemic steroids; Z79.899 Other long term (current) drug therapy; Z99.89 Dependence on other enabling machines and devices; Z86.14 Personal history of Methicillin resistant Staphylococcus aureus infection; Z86.69 Personal history of other diseases of the nervous system and sense organs; Z98.1 Arthrodesis status; W01.0XXA Fall on same level from slipping, tripping and stumbling without subsequent striking against object, initial encounter
CPT/HCPCS: 73564; 70486; 73700; 99284; 96372 ×2; J1170

== ENCOUNTER → 2019-05-04 | Outpatient (CLI) | payer MEDICARE, BC ==
[2019-05-04 17:29] LABS: African American GFR (CKD) 87.2 (60.0-200.0); Albumin 4.5 g/dL (3.80-4.90); Calcium 9.5 mg/dL (8.7-10.3); Magnesium 1.6 mg/dL (1.5-2.4)
== END | disposition home or self-care (01) ==
LOC: LABWHC1 10:53
PROVIDERS: ATTEND Surgery Surgical Oncology
DX: E21.0 Primary hyperparathyroidism (principal); E11.21 Type 2 diabetes mellitus with diabetic nephropathy; E11.65 Type 2 diabetes mellitus with hyperglycemia; Z46.81 Encounter for fitting and adjustment of insulin pump
CPT/HCPCS: 36415; 82040; 82310; 82565; 83735; 83970; 84520

== ENCOUNTER → 2019-05-10 | Outpatient (CLI) | payer MEDICARE, BC ==
[2019-05-10 10:55] LABS: Basophils # (A) 0.1 k/uL (0-0.2); Basophils % (A) 1 %; Eosinophils # (A) 0.2 k/uL (0-0.7); Eosinophils % (A) 2 %; Lymphocytes # (A) 2.2 k/uL (1.0-4.8); Lymphocytes % (A) 31 %; MCH 27.3 pg (25.0-35.0); MCHC 31.5 g/dL (31.0-37.0); MCV 86.7 fL (80.0-100.0); Mean Platelet Volume 6.7; Monocytes # (A) 0.4 k/uL (0-1.0); Monocytes % (A) 6 %; Neutrophils # (A) 4.1 k/uL (1.3-7.7); Neutrophils % (A) 58 %; Platelet Count 301 k/uL (150-450); RBC 4.38 m/uL (3.80-5.40); RDW 14.7 % (11.5-15.5)
[2019-05-10 16:26] LABS: African American GFR (CKD) 102.5 (60.0-200.0); Albumin 4.1 g/dL (3.80-4.90); Albumin/Globulin Ratio 2.93 (1.60-3.17); Anion Gap 6.3 mmol/L (4.00-12.00); BUN/Creat Ratio 24.29 Ratio (12.00-20.00); Calcium 9.4 mg/dL (8.7-10.3); Carbon Dioxide 32.7 mmol/L (21.6-31.8); Chol/HDL Ratio 2.41; Globulin 1.4 g/dL (1.6-3.3); Non-African American GFR(CKD) 88.4 (60.0-200.0); Potassium 3.9 mmol/L (3.5-5.5); Total Bilirubin 0.9 mg/dL (0.3-1.2); Total Protein 5.5 g/dL (6.2-8.2)
[2019-05-10 18:39] LABS: Hemoglobin A1C 9.4 % (4.0-6.0)
== END | disposition home or self-care (01) ==
LOC: LABWHC1 10:00
PROVIDERS: ATTEND Family Medicine
DX: G89.29 Other chronic pain (principal); F32.9 Major depressive disorder, single episode, unspecified; R00.0 Tachycardia, unspecified; E11.65 Type 2 diabetes mellitus with hyperglycemia
CPT/HCPCS: 36415; 80053; 80061; 83036; 84443; 85025

== ENCOUNTER → 2019-06-26 | Outpatient (CLI) | payer MEDICARE, BC ==
[2019-06-26 23:47] LABS: Magnesium 1.8 mg/dL (1.5-2.4)
[2019-06-26 23:48] LABS: African American GFR (CKD) 75.6 (60.0-200.0); Albumin 4.2 g/dL (3.80-4.90); BUN/Creat Ratio 22.22 Ratio (12.00-20.00); Calcium 9.1 mg/dL (8.7-10.3); Non-African American GFR(CKD) 65.2 (60.0-200.0); Potassium 4.4 mmol/L (3.5-5.5)
== END | disposition home or self-care (01) ==
LOC: LABWHC1 15:43
PROVIDERS: ATTEND Internal Medicine Endocrinology, Diabetes & Metabolism
DX: E11.65 Type 2 diabetes mellitus with hyperglycemia (principal); E11.21 Type 2 diabetes mellitus with diabetic nephropathy; E83.42 Hypomagnesemia; E83.52 Hypercalcemia
CPT/HCPCS: 36415; 80048; 82040; 83735; 84443

== ENCOUNTER → 2019-07-09 | Day surgery (SDC) | payer MEDICARE, BC ==
[2019-07-05 14:55] VITALS: BMI 28.1
[~2019-07-09] MED LIST changes: +IV FLUID CONTINUATION 1,000 ML IV ONE; -LACTATED RINGERS 1,000 ML IV SCH; +LIDOCAINE 1% 20 ML VIAL (10MG/ML) FOR IV START INTRADERMA ONE; +MIDAZOLAM 2 MG/2 ML VIAL ONE; +ROPIVACAINE 5MG/ML 20ML VIAL ONE; +fentaNYL (PF) 50 MCG/ML 2 ML AMP ONE; +methylPREDNISolone ACETATE 40 MG/ML 1 ML VIAL ONE
[2019-07-09 09:49] VITALS: RESP 16; TEMP 98
[2019-07-09] MEDS: LACTATED RINGERS 1,000 ML IV SCH ×2 (10:06→10:18)
[2019-07-09 10:07] LABS: Glucose,Whole Blood 142 mg/dL (75-99)
--- NOTE | 2019-07-09 10:46 | P.PCN ---
Date of Procedure: 07/09/19 Procedure(s) Performed: Preoperative diagnoses= 1- Greater occipital neuralgia Postoperative diagnoses= same as preoperative diagnosis. Procedure= Bilateral Greater occipital nerve block. Anesthesia= moderate sedation with Versed 1 mg and fentanyl 50 micrograms and local infiltration with lidocaine 1% 4 ml Estimated blood loss=minimal. Procedure indication= the patient had a history of severe chronic neck pain ,and headache, diagnosed with occipital neuralgia ,exam was positive for severe tenderness over the occipital nerve bilaterally, she will be a good candidate occipital nerve block, patient failed conservative management Procedure description= the patient was seen and identified in the preoperative holding area, risks and benefits and alternative of the procedure and possible complications ,discussed with the patient, and she agreed with the preceding, patient signed the consent, an IV was started, and vital signs were monitored and were stable throughout the procedure, patient was placed in the sitting position or table and the neck area was prepped and draped with a sterile fashion, vital signs were closely monitored during the procedure, 25-gauge needle advanced 1 inch lateral to the occipital protuberance on the right side, at the location of the right occipital nerve , then after negative aspiration for heme and CSF and there was no paresthesia during the injection, 6 ml of Robivacaine 0.5% and 20 mg of Depo-Medrol injected after negative aspiration, the needle removed, and the entire same procedure was repeated for the left Greater occipital nerve. Patient tolerated the procedure well without any complication, The patient returned to supine position after the back was cleaned and a Band- Aid applied, the patient transported to recovery room in stable condition and he was monitored for 30 minutes before he was discharged home and then patient was reexamined before going home and patient was discharged in stable condition and patient will follow up with the pain clinic in a few weeks .
[2019-07-09 10:56] LABS: Glucose,Whole Blood 139 mg/dL (75-99)
[2019-07-09 11:09] VITALS: BP 167/74; PULSE 57
== END ==
LOC: ORPAIN 08:50
PROVIDERS: ATTEND Specialist
DX: M54.81 Occipital neuralgia (principal); E11.9 Type 2 diabetes mellitus without complications; Z79.82 Long term (current) use of aspirin; Z79.4 Long term (current) use of insulin; Z79.52 Long term (current) use of systemic steroids; Z79.899 Other long term (current) drug therapy
CPT/HCPCS: 64405; J2250; J1030; J3010; J2795

== ENCOUNTER 2019-07-23 09:34 | Day surgery (SDC) | payer MEDICARE, BC ==
[~2019-07-23 09:34] MED LIST changes: +BUPIVACAINE (PF) 0.5% 30 ML VIAL ONE; -IV FLUID CONTINUATION 1,000 ML IV ONE; -LIDOCAINE 1% 20 ML VIAL (10MG/ML) FOR IV START INTRADERMA ONE; -ROPIVACAINE 5MG/ML 20ML VIAL ONE; +TRIAMCINOLONE ACETONIDE 40 MG/ML 1 ML VIAL ONE; -methylPREDNISolone ACETATE 40 MG/ML 1 ML VIAL ONE
[2019-07-23 10:28] VITALS: TEMP 98.2
[2019-07-23 10:43] LABS: Glucose,Whole Blood 217 mg/dL (75-99)
[2019-07-23] MEDS ORDERED: LIDOCAINE 1% 20 ML VIAL (10MG/ML) FOR IV START INTRADERMA ONE (10:51)
[2019-07-23] MEDS ORDERED: LACTATED RINGERS 1,000 ML IV ONE (10:51)
--- NOTE | 2019-07-23 11:12 | P.PCN ---
Date of Procedure: 07/23/19 Anesthesia: MAC (Jerilyn IV conscious sedation with fentanyl and Versed) Surgeon: Lilly Roberson Pathology: none sent Condition: stable Disposition: PACU Description of Procedure: Preoperative diagnoses= 1- Greater occipital neuralgia Postoperative diagnoses= same as preoperative diagnosis. Procedure= Bilateral Greater occipital nerve block. Anesthesia= moderate sedation with Versed 1 mg and fentanyl 100 micrograms and local infiltration with lidocaine 1% 4 ml. procedure time [id number] Estimated blood loss=minimal. Procedure indication= the patient had a history of severe chronic neck pain ,and headache, diagnosed with occipital neuralgia ,exam was positive for severe tenderness over the occipital nerve bilaterally, she will be a good candidate occipital nerve block, patient failed conservative management Procedure description= the patient was seen and identified in the preoperative holding area, risks and benefits and alternative of the procedure and possible complications ,discussed with the patient, and she agreed with the preceding, patient signed the consent, an IV was started, and vital signs were monitored and were stable throughout the procedure, patient was placed in the sitting position or table and the neck area was prepped and draped with a sterile fashion, vital signs were closely monitored during the procedure, 25-gauge needle advanced 1 inch lateral to the occipital protuberance on the right side, at the location of the right occipital nerve , then after negative aspiration for heme and CSF and there was no paresthesia during the injection, 4 ml of Robivacaine 0.5% and 10 mg of Kenalog injected after negative aspiration, the needle removed, and the entire same procedure was repeated for the left Greater occipital nerve. Patient tolerated the procedure well without any complication, The patient returned to supine position after the back was cleaned and a Band- Aid applied, the patient transported to recovery room in stable condition and he was monitored for 30 minutes before he was discharged home and then patient was reexamined before going home and patient was discharged in stable condition and patient will follow up with the pain clinic in a few weeks .
[2019-07-23] MEDS ORDERED: IV FLUID CONTINUATION 1,000 ML IV ONE (11:14)
[2019-07-23 11:18] VITALS: RESP 16
[2019-07-23 11:27] VITALS: BP 157/83; PULSE 60
== END 2019-07-23 11:48 ==
LOC: ORPAIN 09:34
PROVIDERS: ATTEND Anesthesiology
DX: M54.81 Occipital neuralgia (principal); E11.9 Type 2 diabetes mellitus without complications; I10 Essential (primary) hypertension; Z79.82 Long term (current) use of aspirin; Z91.048 Other nonmedicinal substance allergy status; Z79.4 Long term (current) use of insulin; Z79.899 Other long term (current) drug therapy
CPT/HCPCS: 64405; J2250; J3301; J3010

== ENCOUNTER → 2019-08-06 | Outpatient (CLI) | payer MEDICARE, BC ==
[2019-08-06 13:02] VITALS: BP 178/83; PULSE 65; RESP 18
--- NOTE | 2019-08-06 13:20 | P.PAINPG ---
Subjective Progress Note Date: 08/06/19 Melissa presents today for follow-up after having occipital nerve blocks 2. She reports her pain significantly better reports was 60-70% relief of her pain. She reports her pain comes and goes throughout the day and not every day as it was before. She denies any new symptoms. She denies any numbness tingling radiating down her arms. She has free range of motion of the cervical spine. She is currently using [place] as well as gabapentin. She starting seeing a new primary care physician who is coordinating her care. She is happy with the current relief and is here today as a follow-up appointment only. We discussed the use of these injections sparingly secondary to the steroid load. Patient and her are in agreement. Objective - Vital Signs Vital signs: Vital Signs Temp Pulse 65 08/06/19 12:52 Resp 18 08/06/19 12:52 BP 178/83 08/06/19 12:52 Pulse Ox 96 08/06/19 12:52 - Exam PHYSICAL EXAM: Constitutional: Awake and alert no distress, obese, using a walker Eyes: Patient has exophthalmos pupils are round and equal Cardiovascular exam: Regular rate, no lower extremity edema, palpable pulses bilaterally Respiratory exam: No audible wheezing, no accessory muscle usage Abdominal exam: Soft nontender Muscular skeletal exam: - Cervical spine: Anterior cervical scar is well-healed, full range of motion. There is no pain with movement. Slight tenderness to palpation over the posterior cervical spine. There is no step-off noted over the osseous structures. Facet loading is positive bilaterally. Spurling's negative. Marcy man's is negative. - Lumbar spine: Preserved lumbar lordosis. No changes in skin. Nontender palpation bilateral. Patient has full range of motion in flexion and extension as well as lateral sidebending. Neuro exam: Normal sensation bilateral upper and lower extremities. Deep tendon reflexes are 2+ bilaterally. Elizondo's is negative. Uses a walker for ambulation Psychiatric exam: Cooperative, good insight Assessment and Plan Assessment: #1 occipital neuralgia #2 cervical spondylosis without myelopathy Plan: Patient feels that the injections helped significantly. She is doing very well we will hold off on repeating the injections at this time. Discussed steroid load holding off on injections for at least 3 months time. Patient is in agreement with give us a call as needed PQRS Measure Charge Sheet PQRS Narrative: Smoking Status Never smoker Blood Pressure 178/83 Pain Intensity [Neck] 8 Scale Used Numeric (1 - 10) Hx Alcohol Use (MH) No Home Medications: Ambulatory Orders Cholecalciferol [Vitamin D3 (25 Mcg = 1000 Iu)] 3,000 unit PO DAILY@0700 12/01/14 Ondansetron [Zofran] 4 mg PO Q6H PRN 10/12/15 Metoprolol Succinate (ER) [Toprol XL] 50 mg PO HS 07/06/17 Meclizine [Antivert] 25 mg PO QID PRN 11/26/17 Magnesium Oxide 400 mg PO QAM 02/26/18 Hydrocortisone [Cortef] 10 mg PO AC-LUNCH 05/18/18 Hydrocortisone [Cortef] 15 mg PO AC-BRKFST 05/18/18 Hydrocortisone [Cortef] 5 mg PO HS 06/26/18 Aspirin 81 mg PO DAILY #0 07/02/18 Glucagon Emergency Kit 1 mg IM ONCE PRN 08/12/18 Methocarbamol [Robaxin-750] 750 mg PO TID PRN 09/09/18 Cranberry 300mg 300 mg PO BID 10/08/18 Ferrous Sulfate [Iron (65 MG Elemental)] 325 mg PO DAILY 10/08/18 Folic Acid 0.4 mg PO DAILY 10/08/18 L.acidoph,Paracasei, B.lactis [Probiotic] 2 cap PO BID 10/08/18 Melatonin 5 mg PO HS PRN 10/08/18 Multivitamins, Thera Liquid [Theragran Liquid (formulary)] 30 ml PO DAILY 10/08/18 Potassium 99 mg PO DAILY 10/08/18 Thiamine [Vitamin B-1] 100 mg PO DAILY 10/08/18 Vitamin B-Complex Drops 1 drop PO BID 10/08/18 Lisinopril [Zestril] 15 mg PO QAM 11/08/18 Atorvastatin [Lipitor] 40 mg PO HS #30 tab 11/16/18 Prochlorperazine [Compazine] 10 mg PO Q8H PRN 12/08/18 Promethazine HCl [Phenergan Syrup] 6.25 mg PO Q6H PRN 12/08/18 amLODIPine [Norvasc] 5 mg PO DAILY #30 tab 12/13/18 HYDROcodone/APAP 10-325MG [[place] 10-325] 1 - 2 tab PO Q4-6H PRN 12/26/18 Insulin Aspart [NovoLOG Flexpen] 14 unit SQ AC-BRKFST 01/29/19 Insulin Aspart [NovoLOG Flexpen] 18 units SQ AC-LUNCH 01/29/19 Insulin Aspart [NovoLOG Flexpen] 18 units SQ AC-SUPPER 01/29/19 Insulin Glargine [Lantus] 20 unit SQ HS 01/29/19 Pantoprazole [Protonix] 40 mg PO BID 01/29/19 Venlafaxine HCl [Effexor] 75 mg PO DAILY 03/12/19 Gabapentin [Neurontin] 100 mg PO BID 08/01/19 Controlled Substance Measures - Controlled Substance Measures Is patient prescribed a controlled substance at discharge?: No
== END | disposition home or self-care (01) ==
LOC: PNWHC3 12:24
PROVIDERS: ATTEND Hospitalist
DX: M54.81 Occipital neuralgia (principal); M47.812 Spondylosis without myelopathy or radiculopathy, cervical region; Z79.82 Long term (current) use of aspirin; Z79.84 Long term (current) use of oral hypoglycemic drugs; Z79.4 Long term (current) use of insulin; Z79.899 Other long term (current) drug therapy
CPT/HCPCS: 99211

== ENCOUNTER 2019-08-30 | Emergency (ER) | payer MEDICARE, BC | END 2019-08-30 05:56 | disposition home or self-care (01) | CPT/HCPCS: 99283; 96374; 96375 ×3; 96361; J1200; J2765; J2405; J1170 ==

== ENCOUNTER 2019-08-30 15:53 | Inpatient (IN) | payer MEDICARE, BC ==
[2019-08-30] MEDS ORDERED: ONDANSETRON 4 MG/2 ML VIAL IVP STA (16:17)
[2019-08-30] MEDS ORDERED: HYDROmorphone 1 MG/ML 1 ML SYRINGE IVP STA ×2 (16:17→17:53)
[2019-08-30] MEDS ORDERED: ACETAMINOPHEN TAB 500 MG TAB PO STA (16:17)
[2019-08-30] MEDS ORDERED: SODIUM CHLORIDE 0.9% 500 ML 500 ML IV STA (16:17)
--- NOTE | 2019-08-30 16:21 | ED ---
General Adult HPI - General Chief complaint: Headache Stated complaint: Vomiting/headache Time Seen by Provider: 08/30/19 16:12 Source: patient, RN notes reviewed, old records reviewed Mode of arrival: ambulatory Limitations: no limitations - History of Present Illness Initial comments: C8-year-old female presenting for evaluation of headache. Headache is both occipital and frontal. She has history of occipital headache and follows with neurology. She had a fall in March 2019 and has recurrent headaches since that time. She does follow closely with neurology. She states over the past 1 week she's had a gradually worsening headache. She's had nausea and vomiting. She was seen in the emergency department yesterday evening and treated for headache symptoms. She states that she had felt much better but then throughout the day today her headache had returned. She denies fever. Denies chest pain or dyspnea. Denies abdominal pain. She's had some vomiting associated with her headache. She also complains of dysuria. No focal numbness or weakness. - Related Data Home Medications Medication Instructions Recorded Confirmed Cholecalciferol [Vitamin D3 (25 3,000 unit PO DAILY@0700 12/01/14 08/06/19 Mcg = 1000 Iu)] Ondansetron [Zofran] 4 mg PO Q6H PRN 10/12/15 08/06/19 Metoprolol Succinate (ER) [Toprol 50 mg PO HS 07/06/17 08/06/19 XL] Meclizine [Antivert] 25 mg PO QID PRN 11/26/17 08/06/19 Magnesium Oxide 400 mg PO QAM 02/26/18 08/06/19 Hydrocortisone [Cortef] 10 mg PO AC-LUNCH 05/18/18 08/06/19 Hydrocortisone [Cortef] 15 mg PO AC-BRKFST 05/18/18 08/06/19 Hydrocortisone [Cortef] 5 mg PO HS 06/26/18 08/06/19 Glucagon Emergency Kit 1 mg IM ONCE PRN 08/12/18 08/06/19 Methocarbamol [Robaxin-750] 750 mg PO TID PRN 09/09/18 08/06/19 Cranberry 300mg 300 mg PO BID 10/08/18 08/06/19 Ferrous Sulfate [Iron (65 MG 325 mg PO DAILY 10/08/18 08/06/19 Elemental)] Folic Acid 0.4 mg PO DAILY 10/08/18 08/06/19 L.acidoph,Paracasei, B.lactis 2 cap PO BID 10/08/18 08/06/19 [Probiotic] Melatonin 5 mg PO HS PRN 10/08/18 08/06/19 Multivitamins, Thera Liquid 30 ml PO DAILY 10/08/18 08/06/19 [Theragran Liquid (formulary)] Potassium 99 mg PO DAILY 10/08/18 08/06/19 Thiamine [Vitamin B-1] 100 mg PO DAILY 10/08/18 08/06/19 Vitamin B-Complex Drops 1 drop PO BID 10/08/18 08/06/19 Lisinopril [Zestril] 15 mg PO QAM 11/08/18 08/06/19 Prochlorperazine [Compazine] 10 mg PO Q8H PRN 12/08/18 08/06/19 Promethazine HCl [Phenergan Syrup] 6.25 mg PO Q6H PRN 12/08/18 08/06/19 HYDROcodone/APAP 10-325MG [[place] 1 - 2 tab PO Q4-6H PRN 12/26/18 08/06/19 10-325] Insulin Aspart [NovoLOG Flexpen] 14 unit SQ AC-BRKFST 01/29/19 08/06/19 Insulin Aspart [NovoLOG Flexpen] 18 units SQ AC-LUNCH 01/29/19 08/06/19 Insulin Aspart [NovoLOG Flexpen] 18 units SQ AC-SUPPER 01/29/19 08/06/19 Insulin Glargine [Lantus] 20 unit SQ HS 01/29/19 08/06/19 Pantoprazole [Protonix] 40 mg PO BID 01/29/19 08/06/19 Venlafaxine HCl [Effexor] 75 mg PO DAILY 03/12/19 08/06/19 Gabapentin [Neurontin] 100 mg PO BID 08/01/19 08/06/19 Previous Rx's Medication Instructions Recorded Aspirin 81 mg PO DAILY #0 07/02/18 Atorvastatin [Lipitor] 40 mg PO HS #30 tab 11/16/18 amLODIPine [Norvasc] 5 mg PO DAILY #30 tab 12/13/18 Allergies Allergy/AdvReac Type Severity Reaction Status Date / Time butorphanol tartrate Allergy BLISTERS Verified 08/30/19 15:54 [From Stadol] IN MOUTH ceftriaxone [From Rocephin] Allergy Unknown Verified 08/30/19 15:54 clarithromycin [From Biaxin] Allergy Rash/Hives Verified 08/30/19 15:54 codeine Allergy Rash/Hives Verified 08/30/19 15:54 ergotamine tartrate Allergy Unknown Verified 08/30/19 15:54 [From Cafergot] erythromycin base Allergy RASH, GI Verified 08/30/19 15:54 [From E-Mycin] SYMPTOMS ketorolac tromethamine Allergy Rash/Hives Verified 08/30/19 15:54 [From Toradol] liraglutide [From Victoza] Allergy Rash/Hives Verified 08/30/19 15:54 morphine Allergy Rash/Hives Verified 08/30/19 15:54 Penicillins Allergy Rash/Hives Verified 08/30/19 15:54 pentazocine lactate Allergy SEVERE Verified 08/30/19 15:54 [From Talwin] BLISTERS IN MOUTH pregabalin [From Lyrica] Allergy Rash/Hives Verified 08/30/19 15:54 propoxyphene HCl Allergy Rash/Hives Verified 08/30/19 15:54 [From Darvon] Sulfa (Sulfonamide Allergy Rash/Hives Verified 08/30/19 15:54 Antibiotics) tramadol Allergy Unknown Verified 08/30/19 15:54 monosodium glutamate [MSG] AdvReac Nausea & Verified 08/30/19 15:54 Vomiting nalbuphine HCl [From Nubain] AdvReac Nausea & Verified 08/30/19 15:54 Vomiting Review of Systems ROS Statement: Those systems with pertinent positive or pertinent negative responses have been documented in the HPI. ROS Other: All systems not noted in ROS Statement are negative. 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, R wrist/elbow nerve repair, bone removed R shoulder, 4th toe R foot partial amputation, bilateral feet/bunionectomies, R knee arthroscopies, R orbit decompression with ethmoidectomy and eyelid lift, EGD, colonoscopies, cy stocopies, lithotripsy/stents, total hysterectomy, bilateral breast reduction, bilateral cataract removals.Parathyroid surgery - April 2019, pain clinic procedures Past Anesthesia/Blood Transfusion Reactions: Motion Sickness Additional Past Anesthesia/Blood Transfusion Reaction / Comment(s): never recieved blood Past Psychological History: No Psychological Hx Reported Smoking Status: Never smoker Past Alcohol Use History: Occasional Past Drug Use History: None Reported - Past Family History Father Family Medical History: Coronary Artery Disease (CAD), CVA/TIA, Diabetes Mellitus, Myocardial Infarction (PA), Pneumonia Additional Family Medical History / Comment(s): Father at the age of 78yrs from PA and pneumonia. Mother Family Medical History: Cancer Additional Family Medical History / Comment(s): Mother had uterine cancer. She recently at the age of 96yrs old. General Exam Limitations: no limitations General appearance: alert, in no apparent distress Head exam: Present: atraumatic, normocephalic Eye exam: Present: normal appearance, PERRL ENT exam: Present: normal exam Neck exam: Present: normal inspection. Absent: tenderness, meningismus Respiratory exam: Present: normal lung sounds bilaterally. Absent: respiratory distress, wheezes Cardiovascular Exam: Present: normal rhythm, tachycardia GI/Abdominal exam: Present: soft. Absent: distended, tenderness, guarding Neurological exam: Present: alert, oriented X3, CN II-XII intact. Absent: motor sensory deficit Psychiatric exam: Present: normal affect, normal mood Skin exam: Present: warm, dry, intact. Absent: cyanosis, diaphoretic Course Vital Signs 08/30/19 08/30/19 08/30/19 15:54 18:02 18:15 Temperature 97.9 F Pulse Rate 115 H 86 80 Respiratory 16 16 16 Rate Blood Pressure 189/108 197/106 150/83 O2 Sat by Pulse 96 99 93 L Oximetry 08/30/19 18:46 Temperature Pulse Rate 71 Respiratory 16 Rate Blood Pressure 164/92 O2 Sat by Pulse 93 L Oximetry Medical Decision Making - Medical Decision Making 68-year-old female presenting for reevaluation of headache. Patient has chronic headaches, states this is worse than typical headache and has been unable to be controlled at home. Given the increased intensity of her headache, did computed tomography scan her brain which is negative for acute cranial hemorrhage, no mass effect, and chills over the corner infarct with no acute changes. She has a normal CBC, normal CMP, urinalysis is showing 4+ ketones consistent with dehydration secondary to nausea and lack of oral intake. She's placed on IV fluids, given multiple rounds of headache medication. She continues to have persistent headache and nausea. She will be placed in observation for symptomatically control. Case is discussed with Jeane abdi for Dr. Oconnor covering for Dr. Gonsales - Lab Data Result diagrams: 08/30/19 16:33 08/30/19 16:33 Lab Results 08/30/19 08/30/19 08/30/19 Range/Units 16:33 16:33 17:45 WBC 9.5 (3.8-10.6) k/uL RBC 5.18 (3.80-5.40) m/uL Hgb 14.4 (11.4-16.0) gm/dL Hct 44.6 (34.0-46.0) % MCV 86.2 (80.0-100.0) fL MCH 27.9 (25.0-35.0) pg MCHC 32.3 (31.0-37.0) g/dL RDW 14.7 (11.5-15.5) % Plt Count 218 (150-450) k/uL Neutrophils % 72 % Lymphocytes % 19 % Monocytes % 5 % Eosinophils % 1 % Basophils % 0 % Neutrophils # 6.8 (1.3-7.7) k/uL Lymphocytes # 1.8 (1.0-4.8) k/uL Monocytes # 0.5 (0-1.0) k/uL Eosinophils # 0.1 (0-0.7) k/uL Basophils # 0.0 (0-0.2) k/uL Sodium 134 L (137-145) mmol/L Potassium 4.0 (3.5-5.1) mmol/L Chloride 100 (98-107) mmol/L Carbon Dioxide 22 (22-30) mmol/L Anion Gap 12 mmol/L BUN 16 (7-17) mg/dL Creatinine 0.55 (0.52-1.04) mg/dL Est GFR (CKD-EPI)AfAm >90 (>60 ml/min/1.73 sqM) Est GFR (CKD-EPI)NonAf >90 (>60 ml/min/1.73 sqM) Glucose 220 H (74-99) mg/dL Calcium 8.8 (8.4-10.2) mg/dL Total Bilirubin 1.7 H (0.2-1.3) mg/dL AST 30 (14-36) U/L ALT 17 (4-34) U/L Alkaline Phosphatase 56 (38-126) U/L Total Protein 6.5 (6.3-8.2) g/dL Albumin 4.1 (3.5-5.0) g/dL Urine Color Yellow Urine Appearance Clear (Clear) Urine pH 5.5 (5.0-8.0) Ur Specific [place] 1.026 (1.001-1.035) Urine Protein 1+ H (Negative) Urine Glucose (UA) 4+ H (Negative) Urine Ketones 4+ H (Negative) Urine Blood Negative (Negative) Urine Nitrite Negative (Negative) Urine Bilirubin Negative (Negative) Urine Urobilinogen <2.0 (<2.0) mg/dL Ur Leukocyte Esterase Negative (Negative) Urine RBC 1 (0-5) /hpf Urine WBC 15 H (0-5) /hpf Ur Squamous Epith Cells 1 (0-4) /hpf Hyaline Casts 1 (0-2) /lpf Urine Mucus Rare H (None) /hpf Disposition Clinical Impression: Nausea & vomiting, Headache Disposition: ADMITTED IP TO THIS HOSP Condition: Stable Is patient prescribed a controlled substance at d/c from ED?: No Referrals: Andrew Gonsales MD [Primary Care Provider] - 1-2 days Decision to Admit Reason: Admit from EC Decision Date: 08/30/19 Decision Time: 19:47
[2019-08-30 16:43] LABS: Basophils % (A) 0 %; Eosinophils # (A) 0.1 k/uL (0-0.7); Eosinophils % (A) 1 %; HCT 44.6 % (34.0-46.0); HGB 14.4 gm/dL (11.4-16.0); Lymphocytes # (A) 1.8 k/uL (1.0-4.8); Lymphocytes % (A) 19 %; MCH 27.9 pg (25.0-35.0); MCHC 32.3 g/dL (31.0-37.0); MCV 86.2 fL (80.0-100.0); Mean Platelet Volume 7.8; Monocytes # (A) 0.5 k/uL (0-1.0); Monocytes % (A) 5 %; Neutrophils # (A) 6.8 k/uL (1.3-7.7); Neutrophils % (A) 72 %; Platelet Count 218 k/uL (150-450); RBC 5.18 m/uL (3.80-5.40); RDW 14.7 % (11.5-15.5); WBC 9.5 k/uL (3.8-10.6)
[2019-08-30 16:52] LABS: ALT 17 U/L (4-34); AST 30 U/L (14-36); African American GFR (CKD) >90 (>60 ml/min/1.73 sqM); Albumin 4.1 g/dL (3.5-5.0); Alkaline Phosphatase 56 U/L (38-126); Anion Gap 12 mmol/L; Blood Urea Nitrogen 16 mg/dL (7-17); Calcium 8.8 mg/dL (8.4-10.2); Carbon Dioxide 22 mmol/L (22-30); Chloride 100 mmol/L (98-107); Glucose 220 mg/dL (74-99); Non-African American GFR(CKD) >90 (>60 ml/min/1.73 sqM); Sodium 134 mmol/L (137-145); Total Bilirubin 1.7 mg/dL (0.2-1.3); Total Protein 6.5 g/dL (6.3-8.2)
[2019-08-30 17:55] LABS: Appearance,Urine Clear (Clear); Bilirubin,Urine Negative (Negative); Blood,Urine Negative (Negative); Color,Urine Yellow; Glucose,Urine (UA) 4+ (Negative); Hyaline Casts,Urine 1 /lpf (0-2); Leukocyte Esterase,Urine Negative (Negative); Mucus,Urine Rare /hpf; Nitrite,Urine Negative (Negative); PH, Urine 5.5 (5.0-8.0); Protein,Urine 1+ (Negative); RBC,Urine 1 /hpf (0-5); Specific Gravity,Urine 1.026 (1.001-1.035); Squamous Epithelial Cell,Urine 1 /hpf (0-4); Urobilinogen,Urine <2.0 mg/dL (<2.0); WBC,Urine 15 /hpf (0-5)
[2019-08-30 18:00] LABS: Ketones,Urine 4+ (Negative)
[2019-08-30] MEDS ORDERED: LABETALOL 5 MG/ML VIAL MDV IVP STA (18:04)
[2019-08-30] MEDS ORDERED: SODIUM CHLORIDE 0.9% 500 ML 500 ML IV ONE (18:06)
[2019-08-30] MEDS ORDERED: MAGNESIUM SULFATE-D5W PMX 1 GM in DEXTROSE/WATER 1 100ML.BAG IVPB ONE (18:28)
[2019-08-30] MEDS ORDERED: HYDROCORTISONE SUCCINATE 100 MG/2 ML VIAL IV STA (18:28)
[2019-08-30] MEDS ORDERED: METOCLOPRAMIDE 5 MG/ML 2 ML VIAL IVP STA (19:18)
--- NOTE | 2019-08-30 19:38 | CT ---
EXAMINATION TYPE: CT brain wo con DATE OF EXAM: 08/30/2019 COMPARISON: 03/27/2019 HISTORY: Headache. CT DLP: 1099.4 mGycm Automated exposure control for dose reduction was used. Ventricles have normal size. There is no mass effect nor midline shift. There is no sign of intracran ial hemorrhage. There is 1 cm hypodense area right internal capsule at the genu. The calvarium is int act. There is mild hypodensity in the parietal lobe white matter bilaterally. IMPRESSION: Old lacunar infarct right internal capsule. Mild chronic small vessel ischemia. No acute intracranial abnormality. No change.
[2019-08-30] MEDS ORDERED: ONDANSETRON 4 MG/2 ML VIAL IVP PRN (19:42)
[2019-08-30] MEDS ORDERED: NALOXONE 0.4 MG/ML 1 ML VIAL IV PRN (19:42)
[2019-08-30] MEDS ORDERED: ACETAMINOPHEN TAB 325 MG TAB PO PRN (19:42)
[2019-08-30] MEDS ORDERED: MECLIZINE 25 MG TAB PO PRN (19:43)
[2019-08-30] MEDS: SODIUM CHLORIDE 0.9% 1,000 ML IV SCH (19:57)
[2019-08-30 20:29] LABS: Glucose,Whole Blood 278 mg/dL (75-99)
[2019-08-30] MEDS: GABAPENTIN 100 MG CAP PO SCH (21:09)
[2019-08-30] MEDS: METOPROLOL SUCCINATE (ER) 50 MG TAB.ER.24H PO SCH (21:09)
[2019-08-30] MEDS: ATORVASTATIN 40 MG TAB PO SCH (21:10)
[2019-08-30] MEDS: HYDROCORTISONE 10 MG TAB PO SCH (21:10)
[2019-08-30] MEDS: HYDROmorphone 0.5 MG/0.5 ML SYRINGE IVP PRN (21:10)
[2019-08-30] MEDS: INSULIN DETEMIR (LEVEMIR) 100 UNIT/ML SYR SQ SCH (21:11)
[2019-08-30] MEDS ORDERED: PROMETHAZINE HCL 6.25 MG/5 ML CUP PO PRN (22:29)
[2019-08-30] MEDS ORDERED: PROCHLORPERAZINE 10 MG TAB PO PRN (22:29)
[2019-08-30] MEDS ORDERED: GLUCAGON EMERGENCY 1 MG IM PRN (22:29)
[2019-08-30] MEDS ORDERED: METHOCARBAMOL 750 MG TAB PO PRN (22:29)
[2019-08-30] MEDS ORDERED: MELATONIN 5 MG TABLET PO PRN (22:29)
[2019-08-30] MEDS: HYDROCORTISONE SUCCINATE 100 MG/2 ML VIAL IV SCH ×2 (22:49→22:54)
--- NOTE | 2019-08-31 00:09 | HP ---
HISTORY AND PHYSICAL I am covering for Dr. Gonsales. DATE OF SERVICE: 08/30/2019. CHIEF COMPLAINT: Headache. HISTORY OF PRESENT ILLNESS: This 68-year-old woman with a past medical history of multiple medical problems including COPD, diabetes mellitus, history of DVT, history hypertension, history DJD, history of sleep apnea, history of ESBL, MRSA being followed by Dr. Andrew Gonsales in the outpatient setting, apparently had a fall last year and hit the right side of the head. The patient had increasing headaches subsequently, but currently the patient also had occipital and frontal headache. Currently the patient complaining of a headache on the right side which was gradually worsening over the last 1 week and the patient is not feeling well and the patient had some vomiting and nausea associated with with complaints of some weakness. The patient admitted to the hospital for further evaluation and treatment. There is no history of fever, rigors. No history of any hematochezia, melena, seizures, weakness at this time. PAST MEDICAL HISTORY: History of COPD, diabetes mellitus, DVT, fibromyalgia, hyperlipidemia, hypertension, history of DJD, history of pneumonia. MEDICATIONS: Prior to admission: Home medications are reviewed and include: 1. Vitamin D3, 3000 daily. 2. [place] 10 mg q.4-6h p.r.n. 3. Glucovance. 4. Folic acid 0.4 daily. 5. Iron 320 mg p.o. daily. 6. Cranberry. 7. Robaxin 750 mg t.i.d. p.r.n. 8. Melatonin 5 mg q.h.s. p.r.n. 9. Magnesium oxide 400 mg q.a.m. 10.Probiotic 2 capsule p.o. b.i.d. 11.Potassium 99 mEq p.o. daily. 12.Protonix 40 mg p.o. b.i.d. 13.Zofran 4 mg q.6h p.r.n. 14.Multivitamins 1 p.o. daily. 15.Vitamin B1 100 mg p.o. daily. 16.Reglan 6.25 mg q.6h p.r.n. 17.Compazine 10 mg q.8 p.r.n. 18.Vitamin B complex 1 p.o. b.i.d. 19.Effexor 75 mg p.o. daily. 20.Neurontin 100 mg p.o. b.i.d. 21.Lipitor 40 mg q.h.s. 22.Aspirin 81 mg p.o. daily. 23.Toprol-XL 50 mg. 24.Antivert 25 mg q.i.d. p.r.n. 25.Zestril 50 mg q.a.m. 26.Lantus 20 units subcu q.h.s. 27.NovoLog FlexPen 10 units q.a.c. supper, 18 units_14 units a.c. breakfast. 28.Cortef 10 mg a.c. lunch 5 mg q.a.c. 15 mg a.c. breakfast. ALLERGIES: MULTIPLE ALLERGIES INCLUDING STADOL, ROCEPHIN, BIAXIN, CODEINE, CAFERGOT, E- MYCIN, TORADOL, VICTOZA, MORPHINE, PENICILLIN, TALWIN, LYRICA, DARVON, SULFONAMIDE, ULTRAM, FAMILY HISTORY: History of cancer in the family. SOCIAL HISTORY: No history of smoking. Occasional alcohol intake. REVIEW OF SYSTEMS: ENT: No diminished vision. No diminished hearing. Cardiovascular no angina. Respiration no cough, No hemoptysis. GI no nausea or vomiting. no dysuria. Allergy/Immunology: As mentioned earlier. MUSCULOSKELETAL as mentioned earlier. HEMATOLOGY/ONCOLOGY: As mentioned earlier. ENDOCRINE: As mentioned earlier. DERMATOLOGY: Negative. CONSTITUTIONAL: As mentioned. PHYSICAL EXAMINATION: Alert and oriented times three. Pulse 73, blood pressure 120/77. Respirations 18. Temperature is 98.2, pulse ox 94% on room air. HEENT: Conjunctivae normal. Oral mucosa moist. NECK is no jugular venous distention. No carotid bruit. No lymph node enlargement. No neck stiffness. Cardiovascular system: S1, S2. Respiration: Breath sounds diminished in the bases. No rhonchi. No crackles. Bilateral exophthalmos present. ABDOMEN: Soft, nontender. No mass palpable. Legs no edema no swelling. NERVOUS SYSTEM: Higher functions as mentioned. The cranial nerves 2 thru 12 grossly intact. Otherwise, moves all 4 limbs. No focal motor or sensory deficits. Lymphatics: No lymph nodes palpable in the neck, axillae or groin. SKIN: No ulcer, rash, joints no active deforming arthropathy. LABS: CBC within normal, sodium 134, glucose 220 and bilirubin is 1.7. ASSESSMENT: 1. Intractable headache and nausea for evaluation, possible Kefzol allergy or migraine cephalalgia. 2. Hyponatremia. 3. Diabetes mellitus type 2. 4. Urinary tract infection, present on admission, acute. 5. Old the right internal capsule lacunar infarct. 6. Chronic obstructive pulmonary disease. 7. Diabetes mellitus type 2. 8. History of deep vein thrombosis. 9. Fibromyalgia. 10.Hyperlipidemia. 11.History of pneumonia, sleep apnea. 12.History of bronchitis. 13.History of hyperparathyroidism. 14.History of degenerative joint disease. 15.History of toe amputation ulcer. 16.History of cardiac murmur. 17.Occipital neuralgia. 18.ESBL MRSA. 19.History of adrenocortical insufficiency. 20.History of degenerative joint disease. 21.History of cholecystectomy. 22.FULL CODE. RECOMMENDATIONS AND DISCUSSION: In this 62-year-old woman who presented with multiple complex medical issues, we will monitor the patient closely, continue the current medications. Recommend initiate home medications. Monitor glucose closely. Otherwise, I would recommend IV hydrocortisone. Other than that, I will follow the stress nose and symptomatic treatment of pain. Guarded prognosis because of multiple complex medical issues and I would recommend a full admit for more than II nights to diagnose on and treat it is the gait problem. We will continue to monitor recommendations to follow. MMODL / IJN: [id number] / TAJ
[2019-08-31] MEDS: HYDROmorphone 0.5 MG/0.5 ML SYRINGE IVP PRN ×5 (04:09→23:08)
[2019-08-31 07:10] LABS: Glucose,Whole Blood 193 mg/dL (75-99)
[2019-08-31 07:42] LABS: Basophils % (A) 0 %; Eosinophils % (A) 0 %; HCT 46.3 % (34.0-46.0); HGB 14.3 gm/dL (11.4-16.0); Lymphocytes # (A) 1.4 k/uL (1.0-4.8); Lymphocytes % (A) 12 %; MCH 27.5 pg (25.0-35.0); Mean Platelet Volume 8.1; Monocytes # (A) 0.3 k/uL (0-1.0); Monocytes % (A) 3 %; Neutrophils # (A) 9.7 k/uL (1.3-7.7); Neutrophils % (A) 84 %; Platelet Count 248 k/uL (150-450); RBC 5.21 m/uL (3.80-5.40); RDW 14.7 % (11.5-15.5); WBC 11.5 k/uL (3.8-10.6)
[2019-08-31] MEDS: PANTOPRAZOLE 40 MG TABLET PO SCH ×2 (07:56→19:43)
[2019-08-31] MEDS: LISINOPRIL 10 MG TAB PO SCH (07:56)
[2019-08-31] MEDS: FERROUS SULFATE 325 MG TAB PO SCH (07:56)
[2019-08-31] MEDS: GABAPENTIN 100 MG CAP PO SCH ×2 (07:56→19:43)
[2019-08-31] MEDS: MULTIVITAMINS, THERA 1 EACH TAB PO SCH (07:56)
[2019-08-31] MEDS: CHOLECALCIFEROL 1,000 UNIT TAB PO SCH (07:56)
[2019-08-31] MEDS: ASPIRIN 81 MG PO SCH (07:56)
[2019-08-31] MEDS: amLODIPine 5 MG TAB PO SCH (07:57)
[2019-08-31] MEDS: INSULIN ASPART (NovoLOG) 100 UNIT/ML VIAL SQ SCH ×7 (07:57→20:57)
[2019-08-31] MEDS: THIAMINE 100 MG TAB PO SCH (07:57)
[2019-08-31] MEDS: MAGNESIUM OXIDE 400 MG TAB PO SCH (07:57)
[2019-08-31 08:00] LABS: African American GFR (CKD) >90 (>60 ml/min/1.73 sqM); Anion Gap 15 mmol/L; Blood Urea Nitrogen 14 mg/dL (7-17); Calcium 8.8 mg/dL (8.4-10.2); Carbon Dioxide 22 mmol/L (22-30); Chloride 102 mmol/L (98-107); Glucose 202 mg/dL (74-99); Non-African American GFR(CKD) >90 (>60 ml/min/1.73 sqM); Potassium 4.3 mmol/L (3.5-5.1); Sodium 139 mmol/L (137-145)
[2019-08-31] MEDS: VENLAFAXINE HCL 75 MG TAB PO SCH (08:02)
[2019-08-31] MEDS: HYDROCORTISONE SUCCINATE 100 MG/2 ML VIAL IV SCH ×3 (08:03→23:09)
[2019-08-31] MEDS: HYDROCORTISONE 10 MG TAB PO SCH ×2 (08:03→19:31)
[2019-08-31] MEDS ORDERED: ACIDOPH PARACASEI B LACTIS PO SCH (09:00)
[2019-08-31] MEDS ORDERED: VITAMIN B COMPLEX PO SCH (09:00)
[2019-08-31] MEDS ORDERED: CRANBERRY 300 MG PO SCH (09:00)
[2019-08-31] MEDS ORDERED: NON FORMULARY DRUG (Potassium [Potassium] 99 MG) PO SCH (09:00)
[2019-08-31] MEDS ORDERED: NON FORMULARY DRUG (Folic Acid [Folic Acid] 0.4 MG) PO SCH (09:00)
[2019-08-31 12:03] LABS: Glucose,Whole Blood 124 mg/dL (75-99)
[2019-08-31 16:53] LABS: Glucose,Whole Blood 192 mg/dL (75-99)
[2019-08-31] MEDS: SODIUM CHLORIDE 0.9% 1,000 ML IV SCH ×2 (17:03→19:32)
[2019-08-31] MEDS ORDERED: BUTALB/APAP/CAFF 50-325-40MG TAB PO PRN (19:05)
[2019-08-31] MEDS: BRIMONIDINE TARTRATE 0.2% DROPS 5 ML BTL RIGHT EYE SCH (19:42)
[2019-08-31] MEDS: ATORVASTATIN 40 MG TAB PO SCH (19:42)
[2019-08-31] MEDS: METOPROLOL SUCCINATE (ER) 50 MG TAB.ER.24H PO SCH (19:43)
[2019-08-31 20:06] LABS: Glucose,Whole Blood 146 mg/dL (75-99)
[2019-08-31] MEDS: INSULIN DETEMIR (LEVEMIR) 100 UNIT/ML SYR SQ SCH (20:58)
--- NOTE | 2019-08-31 21:18 | PN ---
PROGRESS NOTE DATE OF SERVICE: 08/31/2019 This 68-year-old woman was admitted with intractable headache and history of fall, is being closely monitored. No chest pain. No palpitations. No fever. The blood sugar is elevated and neurology consultation awaited at this time. CT scan of the brain which was done in the ER showed old lacunar infarct in the anterior internal capsule. PAST MEDICAL HISTORY: Reviewed. REVIEW OF SYMPTOMS: Review of systems noted. PHYSICAL EXAM: Patient is alert, oriented x3. Pulse is 91, blood pressure 124/77, respiration 18, temperature 99.1, pulse ox 92% on room air. HEENT: Conjunctivae normal. NECK: No JVD. CARDIOVASCULAR: S1, S2 muffled. RESPIRATORY: Breath sounds diminished in the bases. No rhonchi. No crackles. ABDOMEN: Soft, nontender. No mass palpable. LEGS are no edema. No swelling. CENTRAL NERVOUS SYSTEM: No focal deficits. LABS: WBC 11.5, hemoglobin is 8.9, glucose 202, 190, 124. ASSESSMENT: 1. Severe intractable headache with failure of outpatient treatment, possibly migraine cephalalgia ruled out posttraumatic headache. 2. Hyponatremia. 3. Diabetes mellitus type 2. 4. Urinary tract infection, present on admission, acute. 5. Old right internal capsule lacunar infarct. 6. Chronic obstructive pulmonary disease. 7. Diabetes mellitus type 2. 8. History of deep vein thrombosis. 9. Fibromyalgia. 10.Hyperlipidemia. 11.History of pneumonia. 12.Sleep apnea. 13.History of bronchitis. 14.History of hyperparathyroidism. 15.History of degenerative joint disease. 16.History of toe amputation and ulcer. 17.History of cardiac murmur. 18.History of occipital neurology. 19.History ESBL, MRSA. 20.History of adrenocortical insufficiency. 21.History of degenerative joint disease. 22.History of cholecystectomy. 23.FULL CODE. RECOMMENDATIONS AND DISCUSSION: Recommend to continue current management and symptomatic treatment. Otherwise, at this time, I would continue with symptomatic treatment as well as stress dose steroids. The patient had multiple complex medical issues, at this time, the patient will need full admission for more than 2 nights to diagnosis and treat above-mentioned multiple complex medical issues. Further recommendations to follow. Discussed with staff. Discussed with patient. MMODL / IJN: [id number] /
[2019-09-01] MEDS: HYDROmorphone 0.5 MG/0.5 ML SYRINGE IVP PRN ×6 (04:20→23:32)
[2019-09-01 06:48] LABS: Glucose,Whole Blood 191 mg/dL (75-99)
[2019-09-01 07:22] LABS: Basophils % (A) 0 %; Eosinophils # (A) 0.1 k/uL (0-0.7); Eosinophils % (A) 1 %; HCT 42.1 % (34.0-46.0); HGB 13.3 gm/dL (11.4-16.0); Lymphocytes # (A) 1.5 k/uL (1.0-4.8); Lymphocytes % (A) 16 %; MCH 27.8 pg (25.0-35.0); MCHC 31.6 g/dL (31.0-37.0); Mean Platelet Volume 7.9; Monocytes # (A) 0.4 k/uL (0-1.0); Monocytes % (A) 4 %; Neutrophils # (A) 7.2 k/uL (1.3-7.7); Neutrophils % (A) 77 %; Platelet Count 242 k/uL (150-450); RBC 4.78 m/uL (3.80-5.40); RDW 14.9 % (11.5-15.5); WBC 9.3 k/uL (3.8-10.6)
[2019-09-01 07:36] LABS: African American GFR (CKD) >90 (>60 ml/min/1.73 sqM); Anion Gap 10 mmol/L; Blood Urea Nitrogen 23 mg/dL (7-17); Calcium 8.6 mg/dL (8.4-10.2); Carbon Dioxide 26 mmol/L (22-30); Chloride 102 mmol/L (98-107); Glucose 185 mg/dL (74-99); Non-African American GFR(CKD) 88 (>60 ml/min/1.73 sqM); Potassium 4.6 mmol/L (3.5-5.1); Sodium 138 mmol/L (137-145)
[2019-09-01] MEDS: LISINOPRIL 10 MG TAB PO SCH (08:39)
[2019-09-01] MEDS: MAGNESIUM OXIDE 400 MG TAB PO SCH (08:39)
[2019-09-01] MEDS: ASPIRIN 81 MG PO SCH (08:39)
[2019-09-01] MEDS: MULTIVITAMINS, THERA 1 EACH TAB PO SCH (08:39)
[2019-09-01] MEDS: amLODIPine 5 MG TAB PO SCH (08:39)
[2019-09-01] MEDS: INSULIN ASPART (NovoLOG) 100 UNIT/ML VIAL SQ SCH ×7 (08:40→20:43)
[2019-09-01] MEDS: PANTOPRAZOLE 40 MG TABLET PO SCH ×2 (08:40→19:58)
[2019-09-01] MEDS: THIAMINE 100 MG TAB PO SCH (08:40)
[2019-09-01] MEDS: CHOLECALCIFEROL 1,000 UNIT TAB PO SCH (08:40)
[2019-09-01] MEDS: GABAPENTIN 100 MG CAP PO SCH ×2 (08:45→19:57)
[2019-09-01] MEDS: HYDROCORTISONE 10 MG TAB PO SCH ×2 (08:45→20:43)
[2019-09-01] MEDS: FERROUS SULFATE 325 MG TAB PO SCH (08:45)
[2019-09-01] MEDS: HYDROCORTISONE SUCCINATE 100 MG/2 ML VIAL IV SCH ×3 (08:46→23:29)
[2019-09-01] MEDS: VENLAFAXINE HCL 75 MG TAB PO SCH (08:46)
[2019-09-01] MEDS: BRIMONIDINE TARTRATE 0.2% DROPS 5 ML BTL RIGHT EYE SCH ×2 (08:50→20:48)
[2019-09-01 11:36] LABS: Glucose,Whole Blood 124 mg/dL (75-99)
[2019-09-01] MEDS: SODIUM CHLORIDE 0.9% 1,000 ML IV SCH ×2 (12:02→23:06)
[2019-09-01 17:00] LABS: Glucose,Whole Blood 198 mg/dL (75-99)
--- NOTE | 2019-09-01 17:30 | PN ---
PROGRESS NOTE DATE OF SERVICE: 09/01/2019 This 68-year-old woman who presented with significant headache also had adrenocortical insufficiency. Patient started on high-dose IV steroids. The patient also had symptomatic treatment. Neurology evaluation in progress at this time. PAST MEDICAL: Reviewed. PHYSICAL EXAM: Patient is alert, oriented x3. The pulse is 63, blood pressure 117/80, respiration 18, temperature 97.8, pulse ox 98% on room air. HEENT: Conjunctivae normal. Oral mucosa moist. NECK: No jugular venous distention. No lymph node enlargement. CARDIOVASCULAR: S1, S2. RESPIRATORY: Diminished breath sounds at the bases. No rhonchi, no crackles. ABDOMEN: Soft, nontender. LEGS: No edema, no swelling. NERVOUS SYSTEM: Diffusely weak. No focal deficits. LABS: CBC within normal limits and glucose 185. Other labs are noted. ASSESSMENT: 1. Severe intractable headache with failure of outpatient treatment with possible migraine cephalalgia. Rule out posttraumatic headaches. 2. Hyponatremia. 3. Diabetes type 2. 4. Urinary tract infection, present on admission, acute. 5. Old right internal capsule lacunar infarct. 6. Chronic obstructive pulmonary disease. 7. Diabetes type 2. 8. History of deep vein thrombosis. 9. Fibromyalgia. 10.Hyperlipidemia. 11.History of pneumonia. 12.History of sleep apnea. 13.History of bronchitis. 14.History of hyperparathyroidism. 15.History of degenerative joint disease. 16.History of toe amputation. 17.History of cardiac murmur. 18.History of occipital neuralgia. 19.History of ESBL and MRSA. 20.History of adrenocortical insufficiency. 21.History of cholecystectomy. 22.FULL CODE. RECOMMENDATIONS AND DISCUSSION: Continue current medications, continue to monitor, symptomatic treatment. Otherwise, at this time I recommend to monitor blood sugars closely. Prognosis guarded because of multiple complex medical issues. Further recommendations to follow. See orders for further details. As mentioned earlier, awaiting neurology evaluation. Neurology is following the patient. MMODL / IJN: [id number] /
[2019-09-01] MEDS: METOPROLOL SUCCINATE (ER) 50 MG TAB.ER.24H PO SCH (19:57)
[2019-09-01] MEDS: ATORVASTATIN 40 MG TAB PO SCH (19:58)
[2019-09-01 20:30] LABS: Glucose,Whole Blood 146 mg/dL (75-99)
[2019-09-01] MEDS: INSULIN DETEMIR (LEVEMIR) 100 UNIT/ML SYR SQ SCH (20:43)
[2019-09-02] MEDS: HYDROmorphone 0.5 MG/0.5 ML SYRINGE IVP PRN ×3 (05:03→12:12)
[2019-09-02 06:43] LABS: Glucose,Whole Blood 157 mg/dL (75-99)
[2019-09-02] MEDS: INSULIN ASPART (NovoLOG) 100 UNIT/ML VIAL SQ SCH ×7 (08:09→21:57)
[2019-09-02] MEDS: CHOLECALCIFEROL 1,000 UNIT TAB PO SCH (08:10)
[2019-09-02] MEDS: MAGNESIUM OXIDE 400 MG TAB PO SCH (08:10)
[2019-09-02] MEDS: GABAPENTIN 100 MG CAP PO SCH ×2 (08:10→21:58)
[2019-09-02] MEDS: PANTOPRAZOLE 40 MG TABLET PO SCH ×2 (08:10→21:59)
[2019-09-02] MEDS: FERROUS SULFATE 325 MG TAB PO SCH (08:10)
[2019-09-02] MEDS: ASPIRIN 81 MG PO SCH (08:10)
[2019-09-02] MEDS: THIAMINE 100 MG TAB PO SCH (08:10)
[2019-09-02] MEDS: MULTIVITAMINS, THERA 1 EACH TAB PO SCH (08:10)
[2019-09-02] MEDS: amLODIPine 5 MG TAB PO SCH (08:11)
[2019-09-02] MEDS: HYDROCORTISONE SUCCINATE 100 MG/2 ML VIAL IV SCH ×2 (08:11→17:32)
[2019-09-02] MEDS: LISINOPRIL 10 MG TAB PO SCH (08:11)
[2019-09-02] MEDS: BRIMONIDINE TARTRATE 0.2% DROPS 5 ML BTL RIGHT EYE SCH ×2 (08:16→21:57)
[2019-09-02] MEDS: HYDROCORTISONE 10 MG TAB PO SCH ×2 (08:16→21:58)
[2019-09-02] MEDS: VENLAFAXINE HCL 75 MG TAB PO SCH (08:17)
[2019-09-02 08:30] LABS: Basophils % (A) 0 %; Eosinophils # (A) 0.1 k/uL (0-0.7); Eosinophils % (A) 1 %; HCT 39.9 % (34.0-46.0); HGB 12.8 gm/dL (11.4-16.0); Lymphocytes # (A) 1.6 k/uL (1.0-4.8); Lymphocytes % (A) 19 %; MCH 27.7 pg (25.0-35.0); MCV 86.7 fL (80.0-100.0); Monocytes # (A) 0.4 k/uL (0-1.0); Monocytes % (A) 5 %; Neutrophils # (A) 6.2 k/uL (1.3-7.7); Neutrophils % (A) 74 %; Platelet Count 243 k/uL (150-450); WBC 8.3 k/uL (3.8-10.6)
[2019-09-02 08:42] LABS: African American GFR (CKD) >90 (>60 ml/min/1.73 sqM); Anion Gap 8 mmol/L; Blood Urea Nitrogen 17 mg/dL (7-17); Calcium 8.6 mg/dL (8.4-10.2); Carbon Dioxide 28 mmol/L (22-30); Chloride 101 mmol/L (98-107); Glucose 151 mg/dL (74-99); Non-African American GFR(CKD) >90 (>60 ml/min/1.73 sqM); Potassium 4.5 mmol/L (3.5-5.1); Sodium 137 mmol/L (137-145)
[2019-09-02 12:00] LABS: Glucose,Whole Blood 134 mg/dL (75-99)
[2019-09-02] MEDS: TOPIRAMATE 25 MG TAB PO SCH (14:33)
--- NOTE | 2019-09-02 15:21 | P.CNNES ---
History of Present Illness Consult date: 09/02/19 Requesting physician: Zeferino Oconnor Reason for Consult: Intractable headaches History of Present Illness: Patient is a 68-year-old female well known to me from previous admissions to the hospital for chronic headaches. Patient came for the same reason with intractable headache. Patient has different type of headaches. She has history of bilateral occipital neuralgia. She gets periodic occipital nerve blocks. Lately she was started on gabapentin 100 mg twice a day, about a month ago. She is ALLERGIC to Lyrica. Patient also has history of migraine headache, which typically involve the right parietal region, occurs off and on for the last 40 years. Patient also states that she suffered from a fall at doctor's office in March 2019. She went to the bathroom to give a urine sample. She was getting into e toilet, when she lost balance, fell and hit her head on the right side, bruising her right facial region and the eye. Patient has been having pain in the right parietal region. This headache has been occurring every other day, lasting for a day. The same headache started a week ago but has not let up. She rates it 10/10 although patient physically appears very comfortable. She has been having nausea and vomiting, no appetite but denies any photophobia or phonophobia. She describes her headache as throbbing and stabbing pain involving the right parietal temporal region. Patient states that this headache is different in quality as compared to her migraines that she has suffered from number of years. However the quality and characteristics of this headache does appear to be consistent with a migraine headache. Patient may have developed posttraumatic migraines on top of her pre-existing chronic migraines. Computed tomography scan of head showed old lacunar infarct right internal capsule. Mild chronic small vessel ischemia. No acute process. Patient had a normal carotid Doppler on 12/10/2018. Mild degree of grayscale atheromatous plaquing with no sonographically evident hemodynamically significant stenosis within either visualized carotid arterial system. Antegrade flow in both vertebral arteries. Her last hemoglobin A1c 9.4 on 05/10/2019, cholesterol 147, LDL 57, HDL 61 and triglycerides 145. TFTs normal. Review of Systems All 14 point of review of systems were reviewed, pertinent positive as per HPI. 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, R wrist/elbow nerve repair, bone removed R shoulder, 4th toe R foot partial amputation, bilateral feet/bunionectomies, R knee arthroscopies, R orbit decompression with ethmoidectomy and eyelid lift, EGD, colonoscopies, cystocopi es, lithotripsy/stents, total hysterectomy, bilateral breast reduction, bilateral cataract removals.Parathyroid surgery - April 2019, pain clinic procedures Past Anesthesia/Blood Transfusion Reactions: No Reported Reaction Additional Past Anesthesia/Blood Transfusion Reaction / Comment(s): never recieved blood Past Psychological History: No Psychological Hx Reported Additional Psychological History / Comment(s): Pt resides with her spouse. She uses a walker if out shopping. she drives. She has a nebulizer, cpap, bsc, shower chair, bp machine, dexcom monitor system for her bs.. Smoking Status: Never smoker Past Alcohol Use History: Occasional Past Drug Use History: None Reported - Past Family History Father Family Medical History: Coronary Artery Disease (CAD), CVA/TIA, Diabetes Mellitus, Myocardial Infarction (DC), Pneumonia Additional Family Medical History / Comment(s): Father at the age of 78yrs from DC and pneumonia. Mother Family Medical History: Cancer Additional Family Medical History / Comment(s): Mother had uterine cancer. She recently at the age of 96yrs old. Medications and Allergies Home Medications Medication Instructions Recorded Confirmed Type Cholecalciferol [Vitamin D3 (25 3,000 unit PO DAILY@0700 12/01/14 08/30/19 History Mcg = 1000 Iu)] Ondansetron [Zofran] 4 mg PO BID PRN 10/12/15 08/31/19 History Metoprolol Succinate (ER) [Toprol 50 mg PO HS 07/06/17 08/30/19 History XL] Meclizine [Antivert] 25 mg PO QID PRN 11/26/17 08/30/19 History Magnesium Oxide 400 mg PO QAM 02/26/18 08/30/19 History Hydrocortisone [Cortef] 15 mg PO AC-BRKFST 05/18/18 08/30/19 History Hydrocortisone [Cortef] 5 mg PO HS 06/26/18 08/30/19 History Aspirin 81 mg PO DAILY #0 07/02/18 08/30/19 Rx Glucagon Emergency Kit 1 mg IM ONCE PRN 08/12/18 08/30/19 History Cranberry 300mg 300 mg PO BID 10/08/18 08/30/19 History Ferrous Sulfate [Iron (65 MG 325 mg PO DAILY 10/08/18 08/30/19 History Elemental)] Folic Acid 0.4 mg PO DAILY 10/08/18 08/30/19 History L.acidoph,Paracasei, B.lactis 2 cap PO BID 10/08/18 08/30/19 History [Probiotic] Melatonin 5 mg PO HS PRN 10/08/18 08/30/19 History Multivitamins, Thera Liquid 30 ml PO DAILY 10/08/18 08/30/19 History [Theragran Liquid (formulary)] Potassium 99 mg PO DAILY 10/08/18 08/30/19 History Thiamine [Vitamin B-1] 100 mg PO DAILY 10/08/18 08/30/19 History Vitamin B-Complex Drops 1 drop PO BID 10/08/18 08/30/19 History Lisinopril [Zestril] 15 mg PO QAM 11/08/18 08/30/19 History Atorvastatin [Lipitor] 40 mg PO HS #30 tab 11/16/18 08/30/19 Rx Promethazine HCl [Phenergan Syrup] 6.25 mg PO DAILY PRN 12/08/18 08/31/19 History HYDROcodone/APAP 10-325MG [[place] 1 tab PO TID PRN 12/26/18 08/31/19 History 10-325] Insulin Aspart [NovoLOG Flexpen] 14 unit SQ AC-BRKFST 01/29/19 08/30/19 History Insulin Aspart [NovoLOG Flexpen] 18 units SQ AC-LUNCH 01/29/19 08/30/19 History Insulin Aspart [NovoLOG Flexpen] 20 units SQ AC-SUPPER 01/29/19 08/30/19 History Insulin Glargine [Lantus] 23 unit SQ HS 01/29/19 08/30/19 History Pantoprazole [Protonix] 40 mg PO DAILY 01/29/19 08/31/19 History Venlafaxine HCl [Effexor] 75 mg PO DAILY 03/12/19 08/30/19 History Gabapentin [Neurontin] 100 mg PO BID 08/01/19 08/30/19 History Hydrocortisone [Cortef] 10 mg PO AC-LUNCH 08/30/19 08/30/19 History Brimonidine Tartrate [Alphagan P 1 drops RIGHT EYE BID 08/31/19 08/31/19 History 0.2% Ophth Soln] Allergies Allergy/AdvReac Type Severity Reaction Status Date / Time butorphanol tartrate Allergy BLISTERS Verified 08/30/19 23:11 [From Stadol] IN MOUTH ceftriaxone [From Rocephin] Allergy Unknown Verified 08/30/19 23:11 clarithromycin [From Biaxin] Allergy Rash/Hives Verified 08/30/19 23:11 codeine Allergy Rash/Hives Verified 08/30/19 23:11 ergotamine tartrate Allergy Unknown Verified 08/30/19 23:11 [From Cafergot] erythromycin base Allergy RASH, GI Verified 08/30/19 23:11 [From E-Mycin] SYMPTOMS ketorolac tromethamine Allergy Rash/Hives Verified 08/30/19 23:11 [From Toradol] liraglutide [From Victoza] Allergy Rash/Hives Verified 08/30/19 23:11 morphine Allergy Rash/Hives Verified 08/30/19 23:11 Penicillins Allergy Rash/Hives Verified 08/30/19 23:11 pentazocine lactate Allergy SEVERE Verified 08/30/19 23:11 [From Talwin] BLISTERS IN MOUTH pregabalin [From Lyrica] Allergy Rash/Hives Verified 08/30/19 23:11 propoxyphene HCl Allergy Rash/Hives Verified 08/30/19 23:11 [From Darvon] Sulfa (Sulfonamide Allergy Rash/Hives Verified 08/30/19 23:11 Antibiotics) tramadol Allergy Unknown Verified 08/30/19 23:11 monosodium glutamate [MSG] AdvReac Nausea & Verified 08/30/19 23:11 Vomiting nalbuphine HCl [From Nubain] AdvReac Nausea & Verified 08/30/19 23:11 Vomiting Physical Examination - Vital Signs Vital Signs: Vital Signs Temp Pulse Resp BP BP Pulse Ox 09/02/19 07:00 96.6 F L 65 18 158/71 96 09/02/19 01:10 98.3 F 67 17 112/72 95 09/01/19 18:35 98.3 F 77 16 106/62 97 09/01/19 15:00 97.8 F 80 16 125/70 90 L Intake and Output 09/01/19 09/02/19 09/02/19 22:59 06:59 14:59 Intake Total 225 Balance 225 Intake: Intake, IV Titration 225 Amount Sodium Chloride 0.9% 1, 225 000 ml @ 75 mls/hr IV . [id number] [facility] Rx#:[id number] Other: Voiding Method Toilet Toilet # Voids 4 Weight 71 kg On examination patient is an elderly female, very pleasant, in no acute distress. Patient is alert and awake oriented to time place and person. Speech therapy functions recent and remote memory normal. Attention and concentration fund of knowledge is adequate. On cranial examination pupils are round and reactive to light, visual hinds are full on confrontation, except muscles are intact with no nystagmus. Face is symmetric, tongue protrudes the midline. Palatal elevation and sensation normal. On muscle strength testing there is no pronator drift and the strength appears normal in arms and legs distally and proximally no ataxia reflexes are symmetric. Tone and bulk of muscles and gait is normal. There is no carotid bruit, S1 and S2 audible, peripheral pulses present. Results - Laboratory Findings CBC and BMP: 09/02/19 07:20 09/02/19 07:20 Abnormal Lab Findings: Abnormal Labs 08/30/19 08/30/19 08/30/19 16:33 17:45 20:27 WBC Hct Neutrophils # Sodium 134 L BUN Glucose 220 H POC Glucose (mg/dL) 278 H Total Bilirubin 1.7 H Urine Protein 1+ H Urine Glucose (UA) 4+ H Urine Ketones 4+ H Urine WBC 15 H Urine Mucus Rare H 08/31/19 08/31/19 08/31/19 06:21 06:21 07:09 WBC 11.5 H Hct 46.3 H Neutrophils # 9.7 H Sodium BUN Glucose 202 H POC Glucose (mg/dL) 193 H Total Bilirubin Urine Protein Urine Glucose (UA) Urine Ketones Urine WBC Urine Mucus 08/31/19 08/31/19 08/31/19 12:01 16:51 20:03 WBC Hct Neutrophils # Sodium BUN Glucose POC Glucose (mg/dL) 124 H 192 H 146 H Total Bilirubin Urine Protein Urine Glucose (UA) Urine Ketones Urine WBC Urine Mucus 09/01/19 09/01/19 09/01/19 06:47 07:05 11:34 WBC Hct Neutrophils # Sodium BUN 23 H Glucose 185 H POC Glucose (mg/dL) 191 H 124 H Total Bilirubin Urine Protein Urine Glucose (UA) Urine Ketones Urine WBC Urine Mucus 09/01/19 09/01/19 09/02/19 16:59 20:28 06:42 WBC Hct Neutrophils # Sodium BUN Glucose POC Glucose (mg/dL) 198 H 146 H 157 H Total Bilirubin Urine Protein Urine Glucose (UA) Urine Ketones Urine WBC Urine Mucus 09/02/19 09/02/19 07:20 11:58 WBC Hct Neutrophils # Sodium BUN Glucose 151 H POC Glucose (mg/dL) 134 H Total Bilirubin Urine Protein Urine Glucose (UA) Urine Ketones Urine WBC Urine Mucus Assessment and Plan Assessment: * 68-year-old female with chronic migraines, recently suffered from mild head injury due to falling in March 2019, has developed increased frequency of right parietal headache. I suspect these are her typical migraine, probably got worse from closed head injury. * History of bilateral occipital neuralgia, currently stable * Diabetes, poorly controlled * COPD * Fibromyalgia * Hypertension Plan: * Increase gabapentin to 200 mg twice a day. * Patient has chronic migraines. Patient was recommended to follow up with her neurologist to consider treatment with newer CGRP monthly injections to help with chronic migraines. Patient will make an appointment with her neurologist. * Patient asking to continue Dilaudid at home. I informed her that Dilaudid is highly addictive, and not indicated for long-term use of migraines/chronic headaches. * Neurologically clear otherwise.
--- NOTE | 2019-09-02 15:29 | P.PN ---
Subjective Progress Note Date: 09/02/19 this is 68-year-old female admitted with significant headache, chronic in a patient with history of migraines and adrenal cortical insufficiency. Reports she sustained a fall back in March, landing on her right side, continues to have headaches of the right frontal described as worse than a migraine. Nausea and vomiting have subsided. No diarrhea. Denies chest pain, palpitations or shortness of breath. Maintained on high-dose IV steroids.CBC, BMP unremarkable, blood sugars controlled. Neurology evaluation pending. Objective - Vital Signs Vital signs: Vital Signs Temp 96.6 F L 09/02/19 07:00 Pulse 65 09/02/19 07:00 Resp 18 09/02/19 07:00 BP 158/71 09/02/19 07:00 Pulse Ox 96 09/02/19 07:00 Intake & Output 09/01/19 09/02/19 09/02/19 18:59 06:59 18:59 Intake Total 225 Balance 225 Weight 71 kg Intake: Intake, IV Titration 225 Amount Sodium Chloride 0.9% 1, 225 000 ml @ 75 mls/hr IV . [id number] [facility] Rx#:[id number] Other: Voiding Method Toilet # Voids 4 - Exam PHYSICAL EXAM: VITAL SIGNS: [as above] GENERAL: lying in bed, no acute distress HEENT: Conjunctivae normal. eyes normal. oral mucosa moist NECK: No JVD. No thyroid enlargement. No LNs CARDIOVASCULAR: S1, S2 regular.. No murmur RESPIRATION: Breath sounds diminished in the bases. No rhonchi or crackles. No wheezing ABDOMEN: Soft, nontender . No guarding. no masses palpable. No ascites, No hepatosplenomegaly.Bowel sounds heard. LEGS: No edema. no swelling PSYCHIATRY: Alert and oriented X3, mood and affect normal. NERVOUS SYSTEM: Cranial N 2-12 grossly normal. Moves all 4 limbs. No focal deficits. Strength and sensation grossly intact.. Skin: no rash - Labs CBC & Chem 7: 09/02/19 07:20 09/02/19 07:20 Labs: Abnormal Lab Results - Last 24 Hours (Table) 09/01/19 09/01/19 09/02/19 Range/Units 16:59 20:28 06:42 Glucose (74-99) mg/dL POC Glucose (mg/dL) 198 H 146 H 157 H (75-99) mg/dL 09/02/19 09/02/19 Range/Units 07:20 11:58 Glucose 151 H (74-99) mg/dL POC Glucose (mg/dL) 134 H (75-99) mg/dL Assessment and Plan Assessment: Chronic intractable headache,right parietal, recent fall in March 2019,failed outpatient treatment ,possible migraine cephalgia, rule out posttraumatic headache gait dysfunction,recent fall degenerative joint disease history of right internal capsule lacunar infarct History of occipital neuralgia,bilateral Diabetes mellitus type 2 COPD stable Adrenocortical insufficiency, history of Fibromyalgia History of DVT history of ESBL and MRSA Hyperparathyroidism plan: Continue on current medication regime ,monitoring and symptomatic treatment. Pain management, patient anxious over discontinuation of Dilaudid; discussed weaning off Dilaudid and will initiate Topamax.neurology consult in place, recommendations pending.patient on high-dose steroids, close monitoring of Accu-Cheks. Recent fall, PT/OT consulted. The impression and plan of care has been dictated as directed. : I performed a history and examination of this patient, discussed the same with the dictator. I agree with the dictator's note ,documented as a scribe. Any additional findings or plans will be noted.
[2019-09-02 16:42] LABS: Glucose,Whole Blood 129 mg/dL (75-99)
[2019-09-02] MEDS: SODIUM CHLORIDE 0.9% 1,000 ML IV SCH ×2 (19:59→21:59)
[2019-09-02 20:38] LABS: Glucose,Whole Blood 162 mg/dL (75-99)
[2019-09-02] MEDS ORDERED: HYDROmorphone 0.5 MG/0.5 ML SYRINGE IVP STA (20:51)
[2019-09-02] MEDS ORDERED: MAGNESIUM SULFATE-D5W PMX 1 GM in DEXTROSE/WATER 1 100ML.BAG IVPB ONE (20:51)
[2019-09-02] MEDS ORDERED: diphenhydrAMINE 50 MG/ML 1 ML VIAL IVP STA (20:52)
[2019-09-02] MEDS: INSULIN DETEMIR (LEVEMIR) 100 UNIT/ML SYR SQ SCH (21:58)
[2019-09-02] MEDS: METOPROLOL SUCCINATE (ER) 50 MG TAB.ER.24H PO SCH (21:58)
[2019-09-02] MEDS: ATORVASTATIN 40 MG TAB PO SCH (21:59)
[2019-09-03] MEDS: HYDROCORTISONE SUCCINATE 100 MG/2 ML VIAL IV SCH ×2 (01:14→07:10)
[2019-09-03] MEDS: HYDROcodone/APAP 10-325MG 1 EACH TAB PO PRN ×2 (05:58→10:05)
[2019-09-03 06:50] LABS: Glucose,Whole Blood 283 mg/dL (75-99)
[2019-09-03] MEDS: INSULIN ASPART (NovoLOG) 100 UNIT/ML VIAL SQ SCH ×4 (07:09→12:10)
[2019-09-03] MEDS: CHOLECALCIFEROL 1,000 UNIT TAB PO SCH (07:09)
[2019-09-03] MEDS: HYDROCORTISONE 10 MG TAB PO SCH (07:09)
[2019-09-03 07:51] VITALS: RESP 17
[2019-09-03] MEDS: amLODIPine 5 MG TAB PO SCH (08:30)
[2019-09-03] MEDS: VENLAFAXINE HCL 75 MG TAB PO SCH (08:36)
[2019-09-03] MEDS: TOPIRAMATE 25 MG TAB PO SCH (08:36)
[2019-09-03] MEDS: LISINOPRIL 10 MG TAB PO SCH (08:36)
[2019-09-03] MEDS: FERROUS SULFATE 325 MG TAB PO SCH (08:36)
[2019-09-03] MEDS: MAGNESIUM OXIDE 400 MG TAB PO SCH (08:36)
[2019-09-03] MEDS: PANTOPRAZOLE 40 MG TABLET PO SCH (08:36)
[2019-09-03] MEDS: MULTIVITAMINS, THERA 1 EACH TAB PO SCH (08:36)
[2019-09-03] MEDS: ASPIRIN 81 MG PO SCH (08:36)
[2019-09-03] MEDS: GABAPENTIN 100 MG CAP PO SCH (08:36)
[2019-09-03] MEDS: BRIMONIDINE TARTRATE 0.2% DROPS 5 ML BTL RIGHT EYE SCH (08:36)
[2019-09-03] MEDS: THIAMINE 100 MG TAB PO SCH (08:36)
[2019-09-03] MEDS ORDERED: diphenhydrAMINE 50 MG/ML 1 ML VIAL IVP STA (09:05)
[2019-09-03] MEDS ORDERED: MAGNESIUM SULFATE-D5W PMX 1 GM in DEXTROSE/WATER 1 100ML.BAG IVPB ONE (09:30)
[2019-09-03] MEDS ORDERED: ACETAMINOPHEN IV (For NPO) 1,000 MG in EMPTY BAG 1 BAG IVPB ONE (09:30)
[2019-09-03 11:36] LABS: Glucose,Whole Blood 230 mg/dL (75-99)
[2019-09-03 14:55] VITALS: BP 144/68; PULSE 71; TEMP 98.2
--- NOTE | 2019-09-03 15:19 | P.DS ---
Providers Date of admission: 08/31/19 17:52 Expected date of discharge: 09/03/19 Attending physician: Andrew Gonsales MD Consults: 09/01/19 15:13 Consult Physician Routine Consulting Provider: Beto Ball Consult Reason/Comments: intractable headache Do you want consulting provider notified?: Yes, Notify in am Primary care physician: Andrew Gonsales MD Hospital Course: Final Diagnoses: Chronic intractable headache,right parietal, recent fall in March 2019,failed outpatient treatment ,possible migraine cephalgia, rule out posttraumatic headache. Suspected typical migraine as per neurology, worsened from closed head injury. gait dysfunction,recent fall degenerative joint disease history of right internal capsule lacunar infarct History of occipital neuralgia,bilateral Diabetes mellitus type 2 COPD stable Adrenocortical insufficiency, history of Fibromyalgia History of DVT history of ESBL and MRSA Hyperparathyroidism Hospital course:this is 68-year-old female admitted with significant headache, chronic in a patient with history of migraines and adrenal cortical insufficiency. Reports she sustained a fall back in March, landing on her right side, continues to have headaches of the right frontal described as worse than a migraine. Nausea and vomiting have subsided. No diarrhea. Denies chest pain, palpitations or shortness of breath. Maintained on high-dose IV steroids.CBC, BMP unremarkable, blood sugars controlled. Neurology evaluation pending. Evaluated by neurology,newer CGRP monthly injections rec to consider with patient's own neurologist, increased gabapentin to 200 twice a day. Significant clinical improvement. Cleared by nephrology for discharge. Outpatient Migraine regimen discussed. Patient is being discharged home in a stable condition with guarded prognosis. The impression and plan of care has been dictated as directed. : I performed a history and examination of this patient, discussed the same with the dictator. I agree with the dictator's note ,documented as a scribe. Any additional findings or plans will be noted. Patient Condition at Discharge: Stable Plan - Discharge Summary Discharge Rx Participant: No New Discharge Prescriptions: New Magnesium Oxide [Mag-Ox] 400 mg PO QAM #1 tab Metoclopramide HCl [Reglan] 5 mg PO DIRECTED #12 tablet Topiramate [Topamax] 50 mg PO DAILY #60 tab Acetaminophen [Tylenol Extra Strength] 500 mg PO DIRECTED #1 tablet Continue Cholecalciferol [Vitamin D3 (25 Mcg = 1000 Iu)] 3,000 unit PO DAILY@0700 Ondansetron [Zofran] 4 mg PO BID PRN PRN Reason: Nausea And Vomiting Metoprolol Succinate (ER) [Toprol XL] 50 mg PO HS Meclizine [Antivert] 25 mg PO QID PRN PRN Reason: Vertigo Hydrocortisone [Cortef] 15 mg PO AC-BRKFST Hydrocortisone [Cortef] 5 mg PO HS Aspirin 81 mg PO DAILY #0 Glucagon Emergency Kit 1 mg IM ONCE PRN PRN Reason: Hypoglycemia Ferrous Sulfate [Iron (65 MG Elemental)] 325 mg PO DAILY Vitamin B-Complex Drops 1 drop PO BID Thiamine [Vitamin B-1] 100 mg PO DAILY Folic Acid 0.4 mg PO DAILY Multivitamins, Thera Liquid [Theragran Liquid (formulary)] 30 ml PO DAILY L.acidoph,Paracasei, B.lactis [Probiotic] 2 cap PO BID Melatonin 5 mg PO HS PRN PRN Reason: Insomnia Cranberry 300mg 300 mg PO BID Potassium 99 mg PO DAILY Lisinopril [Zestril] 15 mg PO QAM Atorvastatin [Lipitor] 40 mg PO HS #30 tab Promethazine HCl [Phenergan Syrup] 6.25 mg PO DAILY PRN PRN Reason: ALLERGIES HYDROcodone/APAP 10-325MG [[place] 10-325] 1 tab PO TID PRN PRN Reason: Pain Pantoprazole [Protonix] 40 mg PO DAILY Insulin Glargine [Lantus] 23 unit SQ HS Insulin Aspart [NovoLOG Flexpen] 14 unit SQ AC-BRKFST Insulin Aspart [NovoLOG Flexpen] 18 units SQ AC-LUNCH Insulin Aspart [NovoLOG Flexpen] 20 units SQ AC-SUPPER Venlafaxine HCl [Effexor] 75 mg PO DAILY Gabapentin [Neurontin] 100 mg PO BID Hydrocortisone [Cortef] 10 mg PO AC-LUNCH Brimonidine Tartrate [Alphagan P 0.2% Ophth Soln] 1 drops RIGHT EYE BID Discontinued Magnesium Oxide 400 mg PO QAM Discharge Medication List Cholecalciferol [Vitamin D3 (25 Mcg = 1000 Iu)] 3,000 unit PO DAILY@0700 12/01/14 [History] Ondansetron [Zofran] 4 mg PO BID PRN 10/12/15 [History] Metoprolol Succinate (ER) [Toprol XL] 50 mg PO HS 07/06/17 [History] Meclizine [Antivert] 25 mg PO QID PRN 11/26/17 [History] Hydrocortisone [Cortef] 15 mg PO AC-BRKFST 05/18/18 [History] Hydrocortisone [Cortef] 5 mg PO HS 06/26/18 [History] Aspirin 81 mg PO DAILY #0 07/02/18 [Rx] Glucagon Emergency Kit 1 mg IM ONCE PRN 08/12/18 [History] Cranberry 300mg 300 mg PO BID 10/08/18 [History] Ferrous Sulfate [Iron (65 MG Elemental)] 325 mg PO DAILY 10/08/18 [History] Folic Acid 0.4 mg PO DAILY 10/08/18 [History] L.acidoph,Paracasei, B.lactis [Probiotic] 2 cap PO BID 10/08/18 [History] Melatonin 5 mg PO HS PRN 10/08/18 [History] Multivitamins, Thera Liquid [Theragran Liquid (formulary)] 30 ml PO DAILY 10/08/18 [History] Potassium 99 mg PO DAILY 10/08/18 [History] Thiamine [Vitamin B-1] 100 mg PO DAILY 10/08/18 [History] Vitamin B-Complex Drops 1 drop PO BID 10/08/18 [History] Lisinopril [Zestril] 15 mg PO QAM 11/08/18 [History] Atorvastatin [Lipitor] 40 mg PO HS #30 tab 11/16/18 [Rx] Promethazine HCl [Phenergan Syrup] 6.25 mg PO DAILY PRN 12/08/18 [History] HYDROcodone/APAP 10-325MG [[place] 10-325] 1 tab PO TID PRN 12/26/18 [History] Insulin Aspart [NovoLOG Flexpen] 14 unit SQ AC-BRKFST 01/29/19 [History] Insulin Aspart [NovoLOG Flexpen] 18 units SQ AC-LUNCH 01/29/19 [History] Insulin Aspart [NovoLOG Flexpen] 20 units SQ AC-SUPPER 01/29/19 [History] Insulin Glargine [Lantus] 23 unit SQ HS 01/29/19 [History] Pantoprazole [Protonix] 40 mg PO DAILY 01/29/19 [History] Venlafaxine HCl [Effexor] 75 mg PO DAILY 03/12/19 [History] Gabapentin [Neurontin] 100 mg PO BID 08/01/19 [History] Hydrocortisone [Cortef] 10 mg PO AC-LUNCH 08/30/19 [History] Brimonidine Tartrate [Alphagan P 0.2% Ophth Soln] 1 drops RIGHT EYE BID 08/31/19 [History] Acetaminophen [Tylenol Extra Strength] 500 mg PO DIRECTED #1 tablet 09/03/19 [Rx] Magnesium Oxide [Mag-Ox] 400 mg PO QAM #1 tab 09/03/19 [Rx] Metoclopramide HCl [Reglan] 5 mg PO DIRECTED #12 tablet 09/03/19 [Rx] Topiramate [Topamax] 50 mg PO DAILY #60 tab 09/03/19 [Rx] Follow up Appointment(s)/Referral(s): China Barry MD [STAFF PHYSICIAN] - 10/09/19 1:00 pm Andrew Gonsales MD [Primary Care Provider] - 09/06/19 12:00 pm (in the [facility] location) Patient Instructions/Handouts: Acute Headache (DC)
--- NOTE | 2019-09-03 15:57 | P.PN ---
Subjective Progress Note Date: 09/03/19 Patient feeling much better. Ready to go home. All dressed up. Headache has improved since increasing dose of Neurontin. Objective - Vital Signs Vital signs: Vital Signs Temp 98.2 F 09/03/19 14:54 Pulse 71 09/03/19 14:54 Resp 17 09/03/19 14:54 BP 144/68 09/03/19 14:54 Pulse Ox 95 09/03/19 14:54 Intake & Output 09/02/19 09/03/19 09/03/19 18:59 06:59 18:59 Weight 75 kg Other: Voiding Method Toilet # Voids 1 - Exam Patient fully alert and awake, in no distress. Examination unchanged. - Labs CBC & Chem 7: 09/02/19 07:20 09/02/19 07:20 Labs: Abnormal Lab Results - Last 24 Hours (Table) 09/02/19 09/02/19 09/03/19 Range/Units 16:40 20:37 06:49 POC Glucose (mg/dL) 129 H 162 H 283 H (75-99) mg/dL 09/03/19 Range/Units 11:34 POC Glucose (mg/dL) 230 H (75-99) mg/dL Assessment and Plan Assessment: * 68-year-old female with chronic migraines, recently suffered from mild head injury due to falling in March 2019, has developed increased frequency of right parietal headache. I suspect these are her typical migraine, probably got worse from closed head injury. * History of bilateral occipital neuralgia, currently stable * Diabetes, poorly controlled * COPD * Fibromyalgia * Hypertension Plan: * Continue gabapentin 200 mg twice a day. * Patient has chronic migraines. Patient was recommended to follow up with her neurologist to consider treatment with newer CGRP monthly injections to help with chronic migraines. Patient will make an appointment with her neurologist. * Neurologically clear otherwise.
== END 2019-09-03 15:01 | disposition home or self-care (01) | DRG 103 ==
LOC: EC 15:53 → 1SOBS 19:42 → OBSVTOIN 08-31 17:52 → 1SOBS 08-31 18:54 → 4SSUR 09-01 10:58
PROVIDERS: ADMIT Family Medicine; ATTEND Family Medicine
DX: G43.909 Migraine, unspecified, not intractable, without status migrainosus (principal); E27.40 Unspecified adrenocortical insufficiency; E87.1 Hypo-osmolality and hyponatremia; N39.0 Urinary tract infection, site not specified; G44.309 Post-traumatic headache, unspecified, not intractable; E11.65 Type 2 diabetes mellitus with hyperglycemia; E21.3 Hyperparathyroidism, unspecified; E78.5 Hyperlipidemia, unspecified; E86.0 Dehydration; G47.30 Sleep apnea, unspecified; I10 Essential (primary) hypertension; J44.9 Chronic obstructive pulmonary disease, unspecified; M19.90 Unspecified osteoarthritis, unspecified site; M79.7 Fibromyalgia; R01.1 Cardiac murmur, unspecified; R26.9 Unspecified abnormalities of gait and mobility; R11.0 Nausea; Z79.4 Long term (current) use of insulin; Z79.52 Long term (current) use of systemic steroids; Z79.82 Long term (current) use of aspirin; Z79.899 Other long term (current) drug therapy; Z91.81 History of falling; Z90.710 Acquired absence of both cervix and uterus; Z90.49 Acquired absence of other specified parts of digestive tract; Z89.429 Acquired absence of other toe(s), unspecified side; Z87.442 Personal history of urinary calculi; Z87.01 Personal history of pneumonia (recurrent); Z86.73 Personal history of transient ischemic attack (TIA), and cerebral infarction without residual deficits; Z86.718 Personal history of other venous thrombosis and embolism; Z86.14 Personal history of Methicillin resistant Staphylococcus aureus infection; Z88.1 Allergy status to other antibiotic agents; Z88.5 Allergy status to narcotic agent; Z88.0 Allergy status to penicillin; Z88.2 Allergy status to sulfonamides; Z88.8 Allergy status to other drugs, medicaments and biological substances; Z83.3 Family history of diabetes mellitus; Z82.49 Family history of ischemic heart disease and other diseases of the circulatory system; Z80.49 Family history of malignant neoplasm of other genital organs
CPT/HCPCS: 36415; 70450; 80048; 80053; 81001; 85025; 87086; 96361; 96365; 96366; 96375; 96376; 99285

== ENCOUNTER 2019-09-12 12:10 | Inpatient (IN) | payer MEDICARE, BC ==
[2019-09-12] MEDS ORDERED: SODIUM CHLORIDE 0.9% 500 ML 500 ML IV STA (12:42)
[2019-09-12] MEDS ORDERED: ONDANSETRON 4 MG/2 ML VIAL IVP STA (12:44)
[2019-09-12] MEDS ORDERED: HYDROmorphone 0.5 MG/0.5 ML SYRINGE IVP STA (13:26)
--- NOTE | 2019-09-12 13:26 | ED ---
General Adult HPI - General Chief complaint: Chest Pain Stated complaint: chest pain Time Seen by Provider: 09/12/19 12:10 Source: patient, RN notes reviewed, old records reviewed Mode of arrival: wheelchair Limitations: no limitations - History of Present Illness Initial comments: This a 68-year-old female who presents emergency department stating that for the last 2 days she's been very nauseated. Patient states yesterday she started vomiting this morning she woke up with left-sided chest pain is constant it does not seem to vary with deep breathing or coughing. Patient states she does not have a consistent cough. Patient denies any fever chills. Patient states she does have a little bit of diarrhea. But she does deny any abdominal pain. Patient denies lightheadedness or dizziness. Patient states she is a diabetic with high blood pressure. - Related Data Home Medications Medication Instructions Recorded Confirmed Cholecalciferol [Vitamin D3 (25 3,000 unit PO DAILY@0700 12/01/14 09/12/19 Mcg = 1000 Iu)] Ondansetron [Zofran] 4 mg PO BID PRN 10/12/15 09/12/19 Metoprolol Succinate (ER) [Toprol 50 mg PO HS 07/06/17 09/12/19 XL] Meclizine [Antivert] 25 mg PO QID PRN 11/26/17 09/12/19 Hydrocortisone [Cortef] 15 mg PO AC-BRKFST 05/18/18 09/12/19 Hydrocortisone [Cortef] 5 mg PO HS 06/26/18 09/12/19 Glucagon Emergency Kit 1 mg IM ONCE PRN 08/12/18 09/12/19 Cranberry 300mg 300 mg PO BID 10/08/18 09/12/19 Ferrous Sulfate [Iron (65 MG 325 mg PO DAILY 10/08/18 09/12/19 Elemental)] Folic Acid 0.4 mg PO DAILY 10/08/18 09/12/19 L.acidoph,Paracasei, B.lactis 2 cap PO BID 10/08/18 09/12/19 [Probiotic] Melatonin 5 mg PO HS PRN 10/08/18 09/12/19 Multivitamins, Thera Liquid 30 ml PO DAILY 10/08/18 09/12/19 [Theragran Liquid (formulary)] Potassium 99 mg PO DAILY 10/08/18 09/12/19 Thiamine [Vitamin B-1] 100 mg PO DAILY 10/08/18 09/12/19 Vitamin B-Complex Drops 1 drop PO BID 10/08/18 09/12/19 Lisinopril [Zestril] 15 mg PO QAM 11/08/18 09/12/19 Promethazine HCl [Phenergan Syrup] 6.25 mg PO DAILY PRN 12/08/18 09/12/19 HYDROcodone/APAP 10-325MG [Lagrange 1 tab PO TID PRN 12/26/18 09/12/19 10-325] Insulin Aspart [NovoLOG Flexpen] 14 unit SQ AC-BRKFST 01/29/19 09/12/19 Insulin Aspart [NovoLOG Flexpen] 18 units SQ AC-LUNCH 01/29/19 09/12/19 Insulin Aspart [NovoLOG Flexpen] 20 units SQ AC-SUPPER 01/29/19 09/12/19 Insulin Glargine [Lantus] 23 unit SQ HS 01/29/19 09/12/19 Pantoprazole [Protonix] 40 mg PO DAILY 01/29/19 09/12/19 Venlafaxine HCl [Effexor] 75 mg PO DAILY 03/12/19 09/12/19 Hydrocortisone [Cortef] 10 mg PO AC-LUNCH 08/30/19 09/12/19 Brimonidine Tartrate [Alphagan P 1 drops RIGHT EYE BID 08/31/19 09/12/19 0.2% Ophth Soln] Acetaminophen [Tylenol Extra 1,000 mg PO DAILY PRN 09/12/19 09/12/19 Strength] Metoclopramide HCl [Reglan] 5 mg PO DAILY PRN 09/12/19 09/12/19 Previous Rx's Medication Instructions Recorded Aspirin 81 mg PO DAILY #0 07/02/18 Atorvastatin [Lipitor] 40 mg PO HS #30 tab 11/16/18 Gabapentin [Neurontin] 200 mg PO BID #12 cap 09/03/19 Magnesium Oxide [Mag-Ox] 400 mg PO QAM #1 tab 09/03/19 Topiramate [Topamax] 50 mg PO DAILY #60 tab 09/03/19 Allergies Allergy/AdvReac Type Severity Reaction Status Date / Time butorphanol tartrate Allergy BLISTERS Verified 09/12/19 13:56 [From Stadol] IN MOUTH ceftriaxone [From Rocephin] Allergy Unknown Verified 09/12/19 13:56 clarithromycin [From Biaxin] Allergy Rash/Hives Verified 09/12/19 13:56 codeine Allergy Rash/Hives Verified 09/12/19 13:56 ergotamine tartrate Allergy Unknown Verified 09/12/19 13:56 [From Cafergot] erythromycin base Allergy RASH, GI Verified 09/12/19 13:56 [From E-Mycin] SYMPTOMS ketorolac tromethamine Allergy Rash/Hives Verified 09/12/19 13:56 [From Toradol] liraglutide [From Victoza] Allergy Rash/Hives Verified 09/12/19 13:56 morphine Allergy Rash/Hives Verified 09/12/19 13:56 Penicillins Allergy Rash/Hives Verified 09/12/19 13:56 pentazocine lactate Allergy SEVERE Verified 09/12/19 13:56 [From Talwin] BLISTERS IN MOUTH pregabalin [From Lyrica] Allergy Rash/Hives Verified 09/12/19 13:56 propoxyphene HCl Allergy Rash/Hives Verified 09/12/19 13:56 [From Darvon] Sulfa (Sulfonamide Allergy Rash/Hives Verified 09/12/19 13:56 Antibiotics) tramadol Allergy Unknown Verified 09/12/19 13:56 monosodium glutamate [MSG] AdvReac Nausea & Verified 09/12/19 13:56 Vomiting nalbuphine HCl [From Nubain] AdvReac Nausea & Verified 09/12/19 13:56 Vomiting Review of Systems ROS Statement: Those systems with pertinent positive or pertinent negative responses have been documented in the HPI. ROS Other: All systems not noted in ROS Statement are negative. 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, R wrist/elbow nerve repair, bone removed R shoulder, 4th toe R foot partial amputation, bilateral feet/bunionectomies, R knee arthroscopies, R orbit decompression with ethmoidectomy and eyelid lift, EGD, colonoscopies, cystocopies, lithotripsy/stents, total hysterectomy, bilateral breast reduction, bilateral cataract removals.Parathyroid surgery - April 2019, pain clinic procedures Past Anesthesia/Blood Transfusion Reactions: No Reported Reaction Additional Past Anesthesia/Blood Transfusion Reaction / Comment(s): never recieved blood Past Psychological History: No Psychological Hx Reported Smoking Status: Never smoker Past Alcohol Use History: Occasional Past Drug Use History: None Reported - Past Family History Father Family Medical History: Coronary Artery Disease (CAD), CVA/TIA, Diabetes Mellitus, Myocardial Infarction (PR), Pneumonia Additional Family Medical History / Comment(s): Father at the age of 78yrs from PR and pneumonia. Mother Family Medical History: Cancer Additional Family Medical History / Comment(s): Mother had uterine cancer. She recently at the age of 96yrs old. General Exam - General Exam Comments Initial Comments: GENERAL: Patient is well-developed and well-nourished. Patient is nontoxic and well- hydrated and is in mild distress. ENT: Neck is soft and supple. No significant lymphadenopathy is noted. Oropharynx is clear. Moist mucous membranes. Neck has full range of motion without e liciting any pain. EYES: The sclera were anicteric and conjunctiva were pink and moist. Extraocular movements were intact and pupils were equal round and reactive to light. Eyelids were unremarkable. PULMONARY: Unlabored respirations. Good breath sounds bilaterally. No audible rales rhonchi or wheezing was noted. CARDIOVASCULAR: There is a regular rate and rhythm without any murmurs gallops or rubs. ABDOMEN: Soft and nontender with normal bowel sounds. SKIN: Skin is clear with no lesions or rashes and otherwise unremarkable. NEUROLOGIC: Patient is alert and oriented x3. Cranial nerves II through XII are grossly intact. Motor and sensory are also intact. Normal speech, volume and content. Symmetrical smile. MUSCULOSKELETAL: Normal extremities with adequate strength and full range of motion. LYMPHATICS: No significant lymphadenopathy is noted PSYCHIATRIC: Normal psychiatric evaluation. 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 Patient's EKG shows no ST segment elevation there is some slight ST segment depression in precordial leads V3 V4 V5 and V6. Chest x-ray shows no acute abnormality. Patient was started on heparin for unstable angina. I spoke with Dr. Rios he agreed to admit the patient admitted the patient I consult to cardiology continue the heparin and aspirin and Nitropaste. - Lab Data Result diagrams: 09/12/19 13:25 09/12/19 13:25 Lab Results 09/12/19 09/12/19 09/12/19 Range/Units 13:25 13:25 13:25 WBC 12.3 H (3.8-10.6) k/uL RBC 5.61 H (3.80-5.40) m/uL Hgb 16.0 D (11.4-16.0) gm/dL Hct 48.4 H (34.0-46.0) % MCV 86.2 (80.0-100.0) fL MCH 28.5 (25.0-35.0) pg MCHC 33.1 (31.0-37.0) g/dL RDW 14.7 (11.5-15.5) % Plt Count 281 (150-450) k/uL Neutrophils % 67 % Lymphocytes % 24 % Monocytes % 7 % Eosinophils % 1 % Basophils % 0 % Neutrophils # 8.2 H (1.3-7.7) k/uL Lymphocytes # 2.9 (1.0-4.8) k/uL Monocytes # 0.8 (0-1.0) k/uL Eosinophils # 0.1 (0-0.7) k/uL Basophils # 0.0 (0-0.2) k/uL PT 9.8 (9.0-12.0) sec INR 0.9 (<1.2) APTT 21.0 L (22.0-30.0) sec Sodium 136 L (137-145) mmol/L Potassium 3.9 (3.5-5.1) mmol/L Chloride 99 (98-107) mmol/L Carbon Dioxide 26 (22-30) mmol/L Anion Gap 11 mmol/L BUN 12 (7-17) mg/dL Creatinine 0.86 (0.52-1.04) mg/dL Est GFR (CKD-EPI)AfAm 80 (>60 ml/min/1.73 sqM) Est GFR (CKD-EPI)NonAf 70 (>60 ml/min/1.73 sqM) Glucose 234 H (74-99) mg/dL Calcium 9.9 (8.4-10.2) mg/dL Magnesium 1.7 (1.6-2.3) mg/dL Total Bilirubin 1.6 H (0.2-1.3) mg/dL AST 25 (14-36) U/L ALT 22 (4-34) U/L Alkaline Phosphatase 72 (38-126) U/L Troponin I (0.000-0.034) ng/mL Total Protein 6.7 (6.3-8.2) g/dL Albumin 4.3 (3.5-5.0) g/dL Amylase 33 (30-110) U/L Lipase 67 (23-300) U/L 09/12/19 Range/Units 13:25 WBC (3.8-10.6) k/uL RBC (3.80-5.40) m/uL Hgb (11.4-16.0) gm/dL Hct (34.0-46.0) % MCV (80.0-100.0) fL MCH (25.0-35.0) pg MCHC (31.0-37.0) g/dL RDW (11.5-15.5) % Plt Count (150-450) k/uL Neutrophils % % Lymphocytes % % Monocytes % % Eosinophils % % Basophils % % Neutrophils # (1.3-7.7) k/uL Lymphocytes # (1.0-4.8) k/uL Monocytes # (0-1.0) k/uL Eosinophils # (0-0.7) k/uL Basophils # (0-0.2) k/uL PT (9.0-12.0) sec INR (<1.2) APTT (22.0-30.0) sec Sodium (137-145) mmol/L Potassium (3.5-5.1) mmol/L Chloride (98-107) mmol/L Carbon Dioxide (22-30) mmol/L Anion Gap mmol/L BUN (7-17) mg/dL Creatinine (0.52-1.04) mg/dL Est GFR (CKD-EPI)AfAm (>60 ml/min/1.73 sqM) Est GFR (CKD-EPI)NonAf (>60 ml/min/1.73 sqM) Glucose (74-99) mg/dL Calcium (8.4-10.2) mg/dL Magnesium (1.6-2.3) mg/dL Total Bilirubin (0.2-1.3) mg/dL AST (14-36) U/L ALT (4-34) U/L Alkaline Phosphatase (38-126) U/L Troponin I 0.012 (0.000-0.034) ng/mL Total Protein (6.3-8.2) g/dL Albumin (3.5-5.0) g/dL Amylase (30-110) U/L Lipase (23-300) U/L Critical Care Time Critical Care Time: Yes Total Critical Care Time: 35 Disposition Clinical Impression: Unstable angina pectoris, Acute vomiting Disposition: ADMITTED IP TO THIS HOSP Referrals: Andrwe Gonsales MD [Primary Care Provider] - 1-2 days Time of Disposition: 14:25
--- NOTE | 2019-09-12 13:29 | XR ---
EXAMINATION TYPE: XR chest 2V DATE OF EXAM: 09/12/2019 COMPARISON: Chest x-ray June 07, 2019. HISTORY: Chest pain. TECHNIQUE: Frontal and lateral views of the chest are obtained. FINDINGS: There is some chronic change without suspicious new focal air space opacity, pleural effus ion, or pneumothorax seen. The cardiac silhouette size remains enlarged. The osseous structures ar e demineralized. Underlying scoliosis redemonstrated. Deformity to distal right clavicle redemonstrat ed. IMPRESSION: Chronic changes and cardiomegaly without acute pulmonary process.
[2019-09-12 13:50] LABS: Basophils % (A) 0 %; Eosinophils # (A) 0.1 k/uL (0-0.7); Eosinophils % (A) 1 %; HCT 48.4 % (34.0-46.0); Lymphocytes # (A) 2.9 k/uL (1.0-4.8); Lymphocytes % (A) 24 %; MCH 28.5 pg (25.0-35.0); MCHC 33.1 g/dL (31.0-37.0); MCV 86.2 fL (80.0-100.0); Mean Platelet Volume 8.1; Monocytes # (A) 0.8 k/uL (0-1.0); Monocytes % (A) 7 %; Neutrophils # (A) 8.2 k/uL (1.3-7.7); Neutrophils % (A) 67 %; Platelet Count 281 k/uL (150-450); RBC 5.61 m/uL (3.80-5.40); RDW 14.7 % (11.5-15.5); WBC 12.3 k/uL (3.8-10.6)
[2019-09-12 13:51] LABS: Albumin 4.3 g/dL (3.5-5.0); Calcium 9.9 mg/dL (8.4-10.2); Magnesium 1.7 mg/dL (1.6-2.3); Potassium 3.9 mmol/L (3.5-5.1); Total Bilirubin 1.6 mg/dL (0.2-1.3); Total Protein 6.7 g/dL (6.3-8.2)
[2019-09-12 14:06] LABS: INR 0.9 (<1.2); Prothrombin Time 9.8 sec (9.0-12.0)
[2019-09-12] MEDS ORDERED: ASPIRIN 81 MG PO STA (14:30)
[2019-09-12] MEDS ORDERED: NITROGLYCERIN SL TABS 0.4 MG TAB SUBLINGUAL PRN (14:30)
[2019-09-12] MEDS ORDERED: HEPARIN SOD,PORK IN 0.45% NACL 25,000 UNIT in 0.45% NACL 1 250ML.BAG IV SCH (14:30)
[2019-09-12] MEDS ORDERED: HEPARIN SODIUM,PORCINE 5,000 UNIT/ML 1 ML VIAL IV ONE (14:30)
[2019-09-12 16:39] LABS: Glucose,Whole Blood 226 mg/dL (75-99)
[2019-09-12 16:40] VITALS: RESP 18
[2019-09-12] MEDS ORDERED: HYDROcodone/APAP 10-325MG 1 EACH TAB PO PRN (16:40)
[2019-09-12] MEDS ORDERED: ONDANSETRON 4 MG TAB PO PRN (16:40)
[2019-09-12] MEDS ORDERED: MELATONIN 5 MG TABLET PO PRN (16:40)
[2019-09-12] MEDS ORDERED: ACETAMINOPHEN TAB 500 MG TAB PO PRN (16:47)
[2019-09-12] MEDS ORDERED: MECLIZINE 25 MG TAB PO PRN (16:50)
[2019-09-12] MEDS ORDERED: MAGNESIUM SULFATE-D5W PMX 1 GM in DEXTROSE/WATER 1 100ML.BAG IVPB ONE (17:15)
[2019-09-12] MEDS: METOCLOPRAMIDE 5 MG TAB PO PRN (17:28)
[2019-09-12] MEDS: INSULIN ASPART (NovoLOG) 100 UNIT/ML VIAL SQ SCH ×2 (17:29→20:30)
[2019-09-12] MEDS: HYDROcodone/APAP 10-325MG 1 EACH TAB PO PRN ×2 (17:29→21:46)
[2019-09-12] MEDS: NITROGLYCERIN OINT 1 INCH/GM PACKET TOPICAL SCH (17:30)
[2019-09-12 20:04] LABS: Glucose,Whole Blood 150 mg/dL (75-99)
[2019-09-12] MEDS: ATORVASTATIN 40 MG TAB PO SCH (20:30)
[2019-09-12] MEDS: GABAPENTIN 100 MG CAP PO SCH (20:30)
[2019-09-12] MEDS: METOPROLOL SUCCINATE (ER) 50 MG TAB.ER.24H PO SCH (20:30)
[2019-09-12] MEDS: BRIMONIDINE TARTRATE 0.2% DROPS 5 ML BTL RIGHT EYE SCH (21:45)
[2019-09-12] MEDS: HYDROCORTISONE 10 MG TAB PO SCH (21:46)
[2019-09-12] MEDS: MAGNESIUM OXIDE 400 MG TAB PO SCH (21:46)
[2019-09-12] MEDS: INSULIN DETEMIR (LEVEMIR) 100 UNIT/ML SYR SQ SCH (22:09)
[2019-09-13] MEDS: NITROGLYCERIN OINT 1 INCH/GM PACKET TOPICAL SCH ×4 (00:10→17:12)
[2019-09-13] MEDS: METOCLOPRAMIDE 5 MG TAB PO PRN (03:42)
[2019-09-13] MEDS: HYDROcodone/APAP 10-325MG 1 EACH TAB PO PRN ×4 (03:43→21:15)
[2019-09-13 05:48] LABS: Glucose,Whole Blood 237 mg/dL (75-99)
[2019-09-13] MEDS: HYDROCORTISONE 10 MG TAB PO SCH ×3 (06:12→21:13)
[2019-09-13] MEDS: PANTOPRAZOLE 40 MG TABLET PO SCH (06:18)
[2019-09-13] MEDS: INSULIN ASPART (NovoLOG) 100 UNIT/ML VIAL SQ SCH ×4 (06:18→21:16)
[2019-09-13 07:06] LABS: Cholesterol 209 mg/dL (<200); HDL Cholesterol 43 mg/dL (40-60); LDL Cholesterol,Calculated 110 mg/dL (0-99); Triglycerides 281 mg/dL (<150)
[2019-09-13] MEDS: BRIMONIDINE TARTRATE 0.2% DROPS 5 ML BTL RIGHT EYE SCH ×2 (08:40→21:13)
[2019-09-13] MEDS: GABAPENTIN 100 MG CAP PO SCH ×2 (08:41→21:14)
[2019-09-13] MEDS: LISINOPRIL 5 MG TAB PO SCH (08:41)
[2019-09-13] MEDS: ASPIRIN 325 MG TAB PO SCH (08:41)
[2019-09-13] MEDS: VENLAFAXINE HCL 75 MG TAB PO SCH (08:42)
[2019-09-13] MEDS: TOPIRAMATE 25 MG TAB PO SCH (08:42)
[2019-09-13] MEDS: MAGNESIUM OXIDE 400 MG TAB PO SCH ×2 (08:42→21:25)
[2019-09-13] MEDS: POTASSIUM CHLORIDE ER 20 MEQ TAB.ER PO SCH (08:42)
[2019-09-13] MEDS ORDERED: MAGNESIUM SULFATE-D5W PMX 1 GM in DEXTROSE/WATER 1 100ML.BAG IVPB ONE (10:21)
[2019-09-13] MEDS ORDERED: HYDROmorphone 0.5 MG/0.5 ML SYRINGE IVP STA (10:21)
[2019-09-13] MEDS ORDERED: diphenhydrAMINE 50 MG/ML 1 ML VIAL IVP STA (10:21)
--- NOTE | 2019-09-13 10:28 | CONS ---
CONSULTATION CHIEF COMPLAINT: Chest pain. Melissa is a 68-year-old lady with history of hypertension, dyslipidemia who is admitted to hospital with chest pain. It initially started with headache and subsequently she had chest discomfort. She also felt a little nauseous and has had vomiting. Chest pain was constant, unrelated to exertion and unassociated with diaphoresis. At the time of my evaluation, she is pain-free and hemodynamically stable. EKG shows sinus tachycardia with nonspecific ST-T wave changes. Her labs showed that she had a troponin of 0.036 which is slightly elevated. However, the patient has had a cardiac catheterization last October and was told that she had intermediate lesion within the LAD and she was advised medical therapy. Given her chest pain and known CAD, I advised the patient to undergo cardiac catheterization. Understanding risks, benefits, she does not want to have a catheterization and will be managed with optimal medical therapy and will be discharged home and have an outpatient followup with Dr. Rosenberg. She still has headache, which is currently being evaluated by a neurologist and primary care physician and once that issue is addressed she will be discharged home. PAST MEDICAL HISTORY: Significant for hypertension, dyslipidemia, CAD. MEDICATIONS: Her medications are as charted significant ones for me are aspirin, Lipitor, Toprol, and lisinopril. ALLERGIES: She has multiple drug allergies. I have reviewed. They are too numerous to enumerate. PHYSICAL EXAMINATION: On exam, patient is afebrile. Heart rate is 89 beats per minute. Blood pressure is 111/60, O2 sat is 96% on room air. There is no jugular venous distention. Carotid upstroke is normal. There is no bruit Chest exam reveals good air entry bilaterally. Heart exam reveals first and second heart sounds. No gallop. No murmur. Abdomen is soft, nontender. Exam of extremities did not reveal any edema. Peripheral pulses are felt. 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 LABS: Labs are as described above. ASSESSMENT: 1. Precordial chest pain with mild troponin elevation. 2. Status post cardiac catheterization last year with an intermediate lesion. 3. Headache. PLAN: Patient's chest pain is atypical. Her predominant symptom is her headache. The patient does have mild ascending aortic aneurysm and she opted not to undergo cardiac catheterization at this time. Continue with optimal medical therapy. Discharge her home when her headache resolves. MMODL / IJN: [id number] /
--- NOTE | 2019-09-13 11:00 | ECHOF ---
Referral Reason:lv function MEASUREMENTS -------- HEIGHT: 152.4 cm WEIGHT: 100.2 kg BP: IVSd: 1.5 cm (0.6 - 1.1) LVIDd: 2.6 cm (3.9 - 5.3) LVPWd: 2.1 cm (0.6 - 1.1) IVSs: 2.4 cm LVIDs: 1.6 cm LVPWs: 2.0 cm Ao Diam: 3.2 cm (2.0 - 3.7) AV Cusp: 2.1 cm (1.5 - 2.6) LA Diam: 3.1 cm (2.7 - 3.8) MV EXCURSION: 15.965 mm (> 18.000) MV EF SLOPE: 87 mm/s (70 - 150) EPSS: 0.3 cm MV E Fuad: 0.53 m/s MV DecT: 187 ms MV A Fuad: 0.85 m/s MV E/A Ratio: 0.63 RAP: 5.00 mmHg RVSP: 13.90 mmHg FINDINGS -------- Sinus rhythm. This was a technically difficult study with suboptimal views. The left ventricular size is normal. There is severe concentric left ventricular hypertrophy. Ove rall left ventricular systolic function is normal with, an EF between 60 - 65 %. The right ventricle is normal in size. The left atrial size is normal. The right atrial size is normal. Lumason used The aortic valve is trileaflet and appears structurally normal. The mitral valve is normal. Mild mitral regurgitation is present. The tricuspid valve appears structurally normal. Mild tricuspid regurgitation present. Right vent ricular systolic pressure is normal at < 35 mmHg. There is no pulmonic regurgitation present. The aortic root is mildy dilated. IVC Not well visulized. There is no pericardial effusion. CONCLUSIONS -------- 1. Sinus rhythm. 2. This was a technically difficult study with suboptimal views. 3. The left ventricular size is normal. 4. There is severe concentric left ventricular hypertrophy. 5. Overall left ventricular systolic function is normal with, an EF between 60 - 65 %. 6. The right ventricle is normal in size. 7. The left atrial size is normal. 8. The right atrial size is normal. 9. Lumason used 10. The aortic valve is trileaflet and appears structurally normal. 11. The mitral valve is normal. 12. Mild mitral regurgitation is present. 13. The tricuspid valve appears structurally normal. 14. Mild tricuspid regurgitation present. 15. Right ventricular systolic pressure is normal at < 35 mmHg. 16. There is no pulmonic regurgitation present. 17. The aortic root is mildy dilated. 18. IVC Not well visulized. 19. There is no pericardial effusion. MANAGER HAIR: Tona Branch RDCS
[2019-09-13 11:54] LABS: Glucose,Whole Blood 269 mg/dL (75-99)
[2019-09-13 16:46] LABS: Glucose,Whole Blood 275 mg/dL (75-99)
[2019-09-13 19:51] LABS: Glucose,Whole Blood 373 mg/dL (75-99)
[2019-09-13] MEDS: METOPROLOL SUCCINATE (ER) 50 MG TAB.ER.24H PO SCH (21:15)
[2019-09-13] MEDS: ATORVASTATIN 40 MG TAB PO SCH (21:15)
[2019-09-13] MEDS: INSULIN DETEMIR (LEVEMIR) 100 UNIT/ML SYR SQ SCH (21:16)
--- NOTE | 2019-09-13 22:53 | P.HPIM ---
History of Present Illness H&P Date: 09/13/19 Chief Complaint: chest pain Melissa Pena is a 68 yo F with PMH of HTN, HLD, migraine, adrenal insufficiency, T2DM, GERD who presented to the ED after an episode of chest pain at rest yesterday. She states she was watching TV when she experienced a generalized substernal pain. It lasted about 5 mins, did not radiate but complains of some nausea. Denies diaphoresis. She is a nonsmoker. Pt does complain of chronic moderate-severe headache today and was just admitted less than 2 weeks ago for her headaches and at that time started on topamax and her gabapentin dose was increased. on presentation her vitals and labs were stable, trop negative x2 and peaked at 0.036. She did have a cardiac catheterization last year which showed mod CAD but pt elected for medical therapy at that time. Review of Systems All systems: negative Constitutional: Reports fatigue, Denies chills, Denies fever Eyes: denies blurred vision, denies pain Ears, nose, mouth and throat: Denies headache, Denies sore throat Cardiovascular: Reports chest pain, Denies dyspnea on exertion, Denies edema, Denies palpitations, Denies shortness of breath Respiratory: Denies cough Gastrointestinal: Denies abdominal pain, Denies diarrhea, Denies nausea, Denies vomiting Genitourinary: Denies dysuria, Denies hematuria Musculoskeletal: Denies myalgias Integumentary: Denies pruritus, Denies rash Neurological: Reports headaches, Denies numbness, Denies weakness Psychiatric: Denies anxiety, Denies depression Endocrine: Denies fatigue, Denies weight change Past Medical History Past Medical History: COPD, Diabetes Mellitus, Deep Vein Thrombosis (DVT), Fibromyalgia, Hyperlipidemia, Hypertension, Osteoarthritis (OA), Pneumonia, Renal Disease, Sleep Apnea/CPAP/BIPAP, Vascular Disorder Additional Past Medical History / Comment(s): bronchitis, Cpap, UTIs, UTI with sepsis, pyelonephritis/sepsis, nephrolithiasis and has had renal failure d/t blockages, adrenal insufficiency, hyperparathyroidism-recently saw specialist and will have surgery once her health improves, arthritis in multiple joints, DJD, past bilateral pelvic fractures, 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, R wrist/elbow nerve repair, bone removed R shoulder, 4th toe R foot partial amputation, bilateral feet/bunionectomies, R knee arthroscopies, R orbit decompression with ethmoidectomy and eyelid lift, EGD, colonoscopies, cystocopies, lithotripsy/stents, total hysterectomy, bilateral breast reduction, bilateral cataract removals.Parathyroid surgery - April 2019, pain clinic procedures Past Anesthesia/Blood Transfusion Reactions: No Reported Reaction Additional Past Anesthesia/Blood Transfusion Reaction / Comment(s): never recieved blood Past Psychological History: No Psychological Hx Reported Additional Psychological History / Comment(s): Pt resides with her spouse. She uses a walker if out shopping. She drives. She has a nebulizer, cpap, bsc, shower chair, bp machine, dexcom monitor system for her bs. Smoking Status: Never smoker Past Alcohol Use History: Occasional Past Drug Use History: None Reported - Past Family History Father Family Medical History: Coronary Artery Disease (CAD), CVA/TIA, Diabetes Mellitus, Myocardial Infarction ([place]), Pneumonia Additional Family Medical History / Comment(s): Father at the age of 78yrs from [place] and pneumonia. Mother Family Medical History: Cancer Additional Family Medical History / Comment(s): Mother had uterine cancer. She recently at the age of 96yrs old. Medications and Allergies Home Medications Medication Instructions Recorded Confirmed Type Cholecalciferol [Vitamin D3 (25 3,000 unit PO DAILY@0700 12/01/14 09/12/19 History Mcg = 1000 Iu)] Ondansetron [Zofran] 4 mg PO BID PRN 10/12/15 09/12/19 History Metoprolol Succinate (ER) [Toprol 50 mg PO HS 07/06/17 09/12/19 History XL] Meclizine [Antivert] 25 mg PO QID PRN 11/26/17 09/12/19 History Hydrocortisone [Cortef] 15 mg PO AC-BRKFST 05/18/18 09/12/19 History Hydrocortisone [Cortef] 5 mg PO HS 06/26/18 09/12/19 History Aspirin 81 mg PO DAILY #0 07/02/18 09/12/19 Rx Glucagon Emergency Kit 1 mg IM ONCE PRN 08/12/18 09/12/19 History Cranberry 300mg 300 mg PO BID 10/08/18 09/12/19 History Ferrous Sulfate [Iron (65 MG 325 mg PO DAILY 10/08/18 09/12/19 History Elemental)] Folic Acid 0.4 mg PO DAILY 10/08/18 09/12/19 History L.acidoph,Paracasei, B.lactis 2 cap PO BID 10/08/18 09/12/19 History [Probiotic] Melatonin 5 mg PO HS PRN 10/08/18 09/12/19 History Multivitamins, Thera Liquid 30 ml PO DAILY 10/08/18 09/12/19 History [Theragran Liquid (formulary)] Potassium 99 mg PO DAILY 10/08/18 09/12/19 History Thiamine [Vitamin B-1] 100 mg PO DAILY 10/08/18 09/12/19 History Vitamin B-Complex Drops 1 drop PO BID 10/08/18 09/12/19 History Lisinopril [Zestril] 15 mg PO QAM 11/08/18 09/12/19 History Atorvastatin [Lipitor] 40 mg PO HS #30 tab 11/16/18 09/12/19 Rx Promethazine HCl [Phenergan Syrup] 6.25 mg PO DAILY PRN 12/08/18 09/12/19 Histo ry HYDROcodone/APAP 10-325MG [[place] 1 tab PO TID PRN 12/26/18 09/12/19 History 10-325] Insulin Aspart [NovoLOG Flexpen] 14 unit SQ AC-BRKFST 01/29/19 09/12/19 History Insulin Aspart [NovoLOG Flexpen] 18 units SQ AC-LUNCH 01/29/19 09/12/19 History Insulin Aspart [NovoLOG Flexpen] 20 units SQ AC-SUPPER 01/29/19 09/12/19 History Insulin Glargine [Lantus] 23 unit SQ HS 01/29/19 09/12/19 History Pantoprazole [Protonix] 40 mg PO DAILY 01/29/19 09/12/19 History Venlafaxine HCl [Effexor] 75 mg PO DAILY 03/12/19 09/12/19 History Hydrocortisone [Cortef] 10 mg PO AC-LUNCH 08/30/19 09/12/19 History Brimonidine Tartrate [Alphagan P 1 drops RIGHT EYE BID 08/31/19 09/12/19 History 0.2% Ophth Soln] Gabapentin [Neurontin] 200 mg PO BID #12 cap 09/03/19 09/12/19 Rx Magnesium Oxide [Mag-Ox] 400 mg PO QAM #1 tab 09/03/19 09/12/19 Rx Topiramate [Topamax] 50 mg PO DAILY #60 tab 09/03/19 09/12/19 Rx Acetaminophen [Tylenol Extra 1,000 mg PO DAILY PRN 09/12/19 09/12/19 History Strength] Metoclopramide HCl [Reglan] 5 mg PO DAILY PRN 09/12/19 09/12/19 History Allergies Allergy/AdvReac Type Severity Reaction Status Date / Time butorphanol tartrate Allergy BLISTERS Verified 09/12/19 13:56 [From Stadol] IN MOUTH ceftriaxone [From Rocephin] Allergy Unknown Verified 09/12/19 13:56 clarithromycin [From Biaxin] Allergy Rash/Hives Verified 09/12/19 13:56 codeine Allergy Rash/Hives Verified 09/12/19 13:56 ergotamine tartrate Allergy Unknown Verified 09/12/19 13:56 [From Cafergot] erythromycin base Allergy RASH, GI Verified 09/12/19 13:56 [From E-Mycin] SYMPTOMS ketorolac tromethamine Allergy Rash/Hives Verified 09/12/19 13:56 [From Toradol] liraglutide [From Victoza] Allergy Rash/Hives Verified 09/12/19 13:56 morphine Allergy Rash/Hives Verified 09/12/19 13:56 Penicillins Allergy Rash/Hives Verified 09/12/19 13:56 pentazocine lactate Allergy SEVERE Verified 09/12/19 13:56 [From Talwin] BLISTERS IN MOUTH pregabalin [From Lyrica] Allergy Rash/Hives Verified 09/12/19 13:56 propoxyphene HCl Allergy Rash/Hives Verified 09/12/19 13:56 [From Darvon] Sulfa (Sulfonamide Allergy Rash/Hives Verified 09/12/19 13:56 Antibiotics) tramadol Allergy Unknown Verified 09/12/19 13:56 monosodium glutamate [MSG] AdvReac Nausea & Verified 09/12/19 13:56 Vomiting nalbuphine HCl [From Nubain] AdvReac Nausea & Verified 09/12/19 13:56 Vomiting Physical Exam Vitals: Vital Signs Temp Pulse Resp BP Pulse Ox 09/13/19 16:00 98.5 F 71 18 90/56 92 L 09/13/19 12:00 98.3 F 70 18 92/59 89 L 09/13/19 08:00 98.8 F 93 18 133/79 88 L 09/13/19 04:11 98.1 F 89 18 111/66 96 09/13/19 00:00 98.1 F 91 16 105/53 95 Intake and Output 09/13/19 09/13/19 09/13/19 06:59 14:59 22:59 Intake Total 225.073 Output Total 1 Balance 224.073 Intake: Intake, IV Titration 105.073 Amount Heparin Sod,Pork in 0.45% 105.073 NaCl 25,000 unit In 0.45 % NaCl 1 250ml.bag @ 12 UNITS/KG/HR 7.893 mls/hr IV .Q24H [facility] Rx#: [id number] Oral 120 Output: Urine 1 Other: # Voids 1 Weight 100.5 kg General: well nourished, well developed, NAD. Vitals reviewed Eyes: PERRL, EOMI, conjunctiva normal HENT: normocephalic, mucus membranes moist Neck: supple, no JVD Lungs: normal respiratory effort, no wheezes or rales CV: Regular rate and rhythm, no murmur. Peripheral pulses 2+ Abdomen: soft, nondistended, no organomegaly Lymph: no cervical or axillary LAD Skin: warm and dry. Neuro: A&Ox3, normal mood and affect Results CBC & Chem 7: 09/12/19 13:25 09/12/19 13:25 Labs: Abnormal Lab Results - Last 24 Hours (Table) 09/13/19 09/13/19 09/13/19 Range/Units 01:43 05:39 06:18 APTT (22.0-30.0) sec POC Glucose (mg/dL) 237 H (75-99) mg/dL Troponin I 0.036 H* (0.000-0.034) ng/mL Triglycerides 281 H (<150) mg/dL Cholesterol 209 H (<200) mg/dL LDL Cholesterol, Calc 110 H (0-99) mg/dL 09/13/19 09/13/19 09/13/19 Range/Units 06:18 11:52 16:44 APTT 38.0 H (22.0-30.0) sec POC Glucose (mg/dL) 269 H 275 H (75-99) mg/dL Troponin I (0.000-0.034) ng/mL Triglycerides (<150) mg/dL Cholesterol (<200) mg/dL LDL Cholesterol, Calc (0-99) mg/dL 09/13/19 Range/Units 19:50 APTT (22.0-30.0) sec POC Glucose (mg/dL) 373 H (75-99) mg/dL Troponin I (0.000-0.034) ng/mL Triglycerides (<150) mg/dL Cholesterol (<200) mg/dL LDL Cholesterol, Calc (0-99) mg/dL Thrombosis Risk Factor Assmnt - Choose All That Apply Any of the Below Risk Factors Present?: Yes Each Factor Represents 1 point: Medical pt on bed rest, Obesity (BMI >25) Other Risk Factors: Yes Each Risk Factor Represents 2 Points: Age 61-74 years Each Risk Factor Represents 3 Points: History of DVT/PE Other congenital or acquired thrombophilia - If yes, enter type in comment: No Thrombosis Risk Factor Assessment Total Risk Factor Score: 7 Thrombosis Risk Factor Assessment Level: High Risk Assessment and Plan (1) Adrenal insufficiency Current Visit: Yes Status: Acute Code(s): E27.40 - UNSPECIFIED ADRENOCORTICAL INSUFFICIENCY SNOMED Code(s): 268652572 (2) Unstable angina pectoris Current Visit: Yes Status: Acute Code(s): I20.0 - UNSTABLE ANGINA SNOMED Code(s): 8601015 (3) CAD (coronary artery disease) Current Visit: No Status: Acute Code(s): I25.10 - ATHSCL HEART DISEASE OF [place] CORONARY ARTERY W/O ANG PCTRS SNOMED Code(s): 78019561 (4) Migraine Current Visit: No Status: Acute Code(s): G43.909 - MIGRAINE, UNSP, NOT INTRACTABLE, WITHOUT STATUS MIGRAINOSUS SNOMED Code(s): 17400669 (5) Occipital neuritis Current Visit: No Status: Acute Code(s): M54.81 - OCCIPITAL NEURALGIA SNOMED Code(s): 338913403 (6) Essential hypertension Current Visit: Yes Status: Acute Code(s): I10 - ESSENTIAL (PRIMARY) HYPERTENSION SNOMED Code(s): 16364653 (7) Type 2 diabetes mellitus Current Visit: Yes Status: Acute Code(s): E11.9 - TYPE 2 DIABETES MELLITUS WITHOUT COMPLICATIONS SNOMED Code(s): 92372375 Plan: 1. Chest pain. ACS ruled out. Cardiology consulted for further evaluation. Continue heparin drip at this time. Nitro prn 2. Migraine. Continue her topamax and gabapentin. Reglan and Mg prn 3. T2DM. 23 U levemir qhs, accucheck, sliding scale 4. Major depression. Continue effexor 5. Adrenal insufficiency. Continue home hydrocortisone 6. HTN. Continue lisinopril 7. GERD. Continue omeprazole
[2019-09-14 06:17] LABS: Glucose,Whole Blood 206 mg/dL (75-99)
[2019-09-14] MEDS: NITROGLYCERIN OINT 1 INCH/GM PACKET TOPICAL SCH ×4 (06:55→14:10)
[2019-09-14] MEDS: HYDROCORTISONE 10 MG TAB PO SCH ×3 (07:08→23:58)
[2019-09-14] MEDS: PANTOPRAZOLE 40 MG TABLET PO SCH (07:08)
[2019-09-14] MEDS: INSULIN ASPART (NovoLOG) 100 UNIT/ML VIAL SQ SCH ×4 (07:09→23:57)
[2019-09-14] MEDS: POTASSIUM CHLORIDE ER 20 MEQ TAB.ER PO SCH (09:08)
[2019-09-14] MEDS: MAGNESIUM OXIDE 400 MG TAB PO SCH ×2 (09:08→23:57)
[2019-09-14] MEDS: ASPIRIN 325 MG TAB PO SCH (09:09)
[2019-09-14] MEDS: VENLAFAXINE HCL 75 MG TAB PO SCH (09:09)
[2019-09-14] MEDS: LISINOPRIL 5 MG TAB PO SCH (09:09)
[2019-09-14] MEDS: GABAPENTIN 100 MG CAP PO SCH ×2 (09:09→23:56)
[2019-09-14] MEDS: TOPIRAMATE 25 MG TAB PO SCH (09:13)
[2019-09-14] MEDS: BRIMONIDINE TARTRATE 0.2% DROPS 5 ML BTL RIGHT EYE SCH ×2 (09:14→23:59)
[2019-09-14] MEDS: HYDROcodone/APAP 10-325MG 1 EACH TAB PO PRN ×4 (09:16→23:55)
[2019-09-14] MEDS ORDERED: SUMAtriptan SUCCINATE 6 MG/0.5 ML VIAL SQ STA (11:47)
[2019-09-14] MEDS ORDERED: METOCLOPRAMIDE 5 MG/ML 2 ML VIAL IVP STA (11:47)
[2019-09-14 11:53] LABS: Glucose,Whole Blood 301 mg/dL (75-99)
--- NOTE | 2019-09-14 13:50 | P.DS ---
Providers Date of admission: 09/12/19 14:41 Attending physician: Andrew Gonsales MD Consults: 09/12/19 14:30 Consult Physician Urgent Consulting Provider: [facility] Consult Reason/Comments: Unstable angina Do you want consulting provider notified?: Yes Primary care physician: Andrew Gonsales MD Hospital Course: 68-year-old admitted to rule out a concurrent syndromes patient has atypical ch est pain echogram was obtained which did not show any significant abnormality patient is cleared for discharge from cardiac perspective patient was also having headache. Patient had one set of troponin that was higher. Patient had sinus tachycardia which resolved at this time. Patient headache appears to be secondary to occipital neuralgia and was comparing of severe the neck and degenerative joint disease and she has a right-sided scalp pain extending from the back of the neck. It appears patient also has history of migraine. Patient to symptoms improved yesterday with the Reglan, Tylenol and opiate. Patient is comparing of generalized weakness will ablate the patient and physical therapy will evaluate the patient if patient doesn't require any subacute rehabilitation patient will be discharged today with follow-up with the neurology for possible occipital nerve block. Patient will be discharged on Compazine on as-needed basis for migraine headache and patient will be advised to take [id number] Benadryl with that. Patient already has Rembrandt and other pain medications at home. She'll continue on as-needed basis for neuropathic pain of the will increase the dose of gabapentin. PHYSICAL EXAMINATION: GENERAL: The patient is alert and oriented x3, not in any acute distress. Well developed, well nourished. HEENT: Pupils are round and equally reacting to light. EOMI. No scleral icterus. No conjunctival pallor. Normocephalic, atraumatic. No pharyngeal erythema. No thyromegaly. CARDIOVASCULAR: S1 and S2 present. No murmurs, rubs, or gallops. PULMONARY: Chest is clear to auscultation, no wheezing or crackles. ABDOMEN: Soft, nontender, nondistended, normoactive bowel sounds. No palpable organomegaly. MUSCULOSKELETAL: No joint swelling or deformity. EXTREMITIES: No cyanosis, clubbing, or pedal edema. NEUROLOGICAL: Gross neurological examination did not reveal any focal deficits. SKIN: No rashes. Please refer to the dictation of [facility] from Dr. Gonsales from yesterday for further details of hospitalization and other medical problems Plan - Discharge Summary Discharge Rx Participant: No New Discharge Prescriptions: New Gabapentin [Neurontin] 300 mg PO TID #60 cap Prochlorperazine [Compazine] 10 mg PO BID PRN #20 tab PRN Reason: Headache Continue Cholecalciferol [Vitamin D3 (25 Mcg = 1000 Iu)] 3,000 unit PO DAILY@0700 Ondansetron [Zofran] 4 mg PO BID PRN PRN Reason: Nausea And Vomiting Metoprolol Succinate (ER) [Toprol XL] 50 mg PO HS Meclizine [Antivert] 25 mg PO QID PRN PRN Reason: Vertigo Hydrocortisone [Cortef] 15 mg PO AC-BRKFST Hydrocortisone [Cortef] 5 mg PO HS Aspirin 81 mg PO DAILY #0 Glucagon Emergency Kit 1 mg IM ONCE PRN PRN Reason: Hypoglycemia Ferrous Sulfate [Iron (65 MG Elemental)] 325 mg PO DAILY Vitamin B-Complex Drops 1 drop PO BID Thiamine [Vitamin B-1] 100 mg PO DAILY Folic Acid 0.4 mg PO DAILY Multivitamins, Thera Liquid [Theragran Liquid (formulary)] 30 ml PO DAILY L.acidoph,Paracasei, B.lactis [Probiotic] 2 cap PO BID Melatonin 5 mg PO HS PRN PRN Reason: Insomnia Cranberry 300mg 300 mg PO BID Potassium 99 mg PO DAILY Lisinopril [Zestril] 15 mg PO QAM Atorvastatin [Lipitor] 40 mg PO HS #30 tab HYDROcodone/APAP 10-325MG [Rembrandt 10-325] 1 tab PO TID PRN PRN Reason: Pain Pantoprazole [Protonix] 40 mg PO DAILY Insulin Glargine [Lantus] 23 unit SQ HS Insulin Aspart [NovoLOG Flexpen] 14 unit SQ AC-BRKFST Insulin Aspart [NovoLOG Flexpen] 18 units SQ AC-LUNCH Insulin Aspart [NovoLOG Flexpen] 20 units SQ AC-SUPPER Venlafaxine HCl [Effexor] 75 mg PO DAILY Hydrocortisone [Cortef] 10 mg PO AC-LUNCH Brimonidine Tartrate [Alphagan P 0.2% Ophth Soln] 1 drops RIGHT EYE BID Magnesium Oxide [Mag-Ox] 400 mg PO QAM #1 tab Topiramate [Topamax] 50 mg PO DAILY #60 tab Acetaminophen [Tylenol Extra Strength] 1,000 mg PO DAILY PRN PRN Reason: Migraine Headache Discontinued Promethazine HCl [Phenergan Syrup] 6.25 mg PO DAILY PRN PRN Reason: ALLERGIES Gabapentin [Neurontin] 200 mg PO BID #12 cap Metoclopramide HCl [Reglan] 5 mg PO DAILY PRN PRN Reason: Migraine Headache Discharge Medication List Cholecalciferol [Vitamin D3 (25 Mcg = 1000 Iu)] 3,000 unit PO DAILY@0700 12/01/14 [History] Ondansetron [Zofran] 4 mg PO BID PRN 10/12/15 [History] Metoprolol Succinate (ER) [Toprol XL] 50 mg PO HS 07/06/17 [History] Meclizine [Antivert] 25 mg PO QID PRN 11/26/17 [History] Hydrocortisone [Cortef] 15 mg PO AC-BRKFST 05/18/18 [History] Hydrocortisone [Cortef] 5 mg PO HS 06/26/18 [History] Aspirin 81 mg PO DAILY #0 07/02/18 [Rx] Glucagon Emergency Kit 1 mg IM ONCE PRN 08/12/18 [History] Cranberry 300mg 300 mg PO BID 10/08/18 [History] Ferrous Sulfate [Iron (65 MG Elemental)] 325 mg PO DAILY 10/08/18 [History] Folic Acid 0.4 mg PO DAILY 10/08/18 [History] L.acidoph,Paracasei, B.lactis [Probiotic] 2 cap PO BID 10/08/18 [History] Melatonin 5 mg PO HS PRN 10/08/18 [History] Multivitamins, Thera Liquid [Theragran Liquid (formulary)] 30 ml PO DAILY 10/08/18 [History] Potassium 99 mg PO DAILY 10/08/18 [History] Thiamine [Vitamin B-1] 100 mg PO DAILY 10/08/18 [History] Vitamin B-Complex Drops 1 drop PO BID 10/08/18 [History] Lisinopril [Zestril] 15 mg PO QAM 11/08/18 [History] Atorvastatin [Lipitor] 40 mg PO HS #30 tab 11/16/18 [Rx] HYDROcodone/APAP 10-325MG [Rembrandt 10-325] 1 tab PO TID PRN 12/26/18 [History] Insulin Aspart [NovoLOG Flexpen] 14 unit SQ AC-BRKFST 01/29/19 [History] Insulin Aspart [NovoLOG Flexpen] 18 units SQ AC-LUNCH 01/29/19 [History] Insulin Aspart [NovoLOG Flexpen] 20 units SQ AC-SUPPER 01/29/19 [History] Insulin Glargine [Lantus] 23 unit SQ HS 01/29/19 [History] Pantoprazole [Protonix] 40 mg PO DAILY 01/29/19 [History] Venlafaxine HCl [Effexor] 75 mg PO DAILY 03/12/19 [History] Hydrocortisone [Cortef] 10 mg PO AC-LUNCH 08/30/19 [History] Brimonidine Tartrate [Alphagan P 0.2% Ophth Soln] 1 drops RIGHT EYE BID 08/31/19 [History] Magnesium Oxide [Mag-Ox] 400 mg PO QAM #1 tab 09/03/19 [Rx] Topiramate [Topamax] 50 mg PO DAILY #60 tab 09/03/19 [Rx] Acetaminophen [Tylenol Extra Strength] 1,000 mg PO DAILY PRN 09/12/19 [History] Gabapentin [Neurontin] 300 mg PO TID #60 cap 09/14/19 [Rx] Prochlorperazine [Compazine] 10 mg PO BID PRN #20 tab 09/14/19 [Rx] Follow up Appointment(s)/Referral(s): Andrew Gonsales MD [Primary Care Provider] - 3 Days Ruddy Taylor MD [Medical Doctor] - 1 Week Patient Instructions/Handouts: Acute Nausea and Vomiting (DC) Discharge Disposition: HOME SELF-CARE
[2019-09-14 17:01] LABS: Glucose,Whole Blood 356 mg/dL (75-99)
[2019-09-14 19:47] LABS: Glucose,Whole Blood 382 mg/dL (75-99)
[2019-09-14] MEDS: METOPROLOL SUCCINATE (ER) 50 MG TAB.ER.24H PO SCH (23:56)
[2019-09-14] MEDS: ATORVASTATIN 40 MG TAB PO SCH (23:56)
[2019-09-14] MEDS: INSULIN DETEMIR (LEVEMIR) 100 UNIT/ML SYR SQ SCH (23:57)
[2019-09-15] MEDS: NITROGLYCERIN OINT 1 INCH/GM PACKET TOPICAL SCH ×5 (04:48→23:59)
[2019-09-15] MEDS: HYDROcodone/APAP 10-325MG 1 EACH TAB PO PRN ×5 (04:52→21:26)
[2019-09-15 05:50] LABS: Glucose,Whole Blood 204 mg/dL (75-99)
[2019-09-15] MEDS: INSULIN ASPART (NovoLOG) 100 UNIT/ML VIAL SQ SCH ×6 (07:14→21:08)
[2019-09-15] MEDS: PANTOPRAZOLE 40 MG TABLET PO SCH (07:14)
[2019-09-15] MEDS: HYDROCORTISONE 10 MG TAB PO SCH ×3 (07:15→21:07)
[2019-09-15] MEDS: POTASSIUM CHLORIDE ER 20 MEQ TAB.ER PO SCH (09:19)
[2019-09-15] MEDS: LISINOPRIL 5 MG TAB PO SCH (09:19)
[2019-09-15] MEDS: MAGNESIUM OXIDE 400 MG TAB PO SCH ×2 (09:19→20:53)
[2019-09-15] MEDS: ASPIRIN 325 MG TAB PO SCH (09:19)
[2019-09-15] MEDS: BRIMONIDINE TARTRATE 0.2% DROPS 5 ML BTL RIGHT EYE SCH ×2 (09:19→20:53)
[2019-09-15] MEDS: GABAPENTIN 100 MG CAP PO SCH ×2 (09:19→20:53)
[2019-09-15] MEDS: TOPIRAMATE 25 MG TAB PO SCH (09:20)
[2019-09-15] MEDS: VENLAFAXINE HCL 75 MG TAB PO SCH (09:20)
[2019-09-15] MEDS: METOCLOPRAMIDE 5 MG TAB PO PRN (09:31)
--- NOTE | 2019-09-15 10:23 | P.PN ---
Subjective 68-year-old admitted to rule out a concurrent syndromes patient has atypical chest pain echogram was obtained which did not show any significant abnormality patient is cleared for discharge from cardiac perspective patient was also having headache. Patient had one set of troponin that was higher. Patient had sinus tachycardia which resolved at this time. Patient headache appears to be secondary to occipital neuralgia and was comparing of severe the neck and degenerative joint disease and she has a right-sided scalp pain extending from the back of the neck. It appears patient also has history of migraine. Patient to symptoms improved yesterday with the Reglan, Tylenol and opiate. Patient is comparing of generalized weakness will ablate the patient and physical therapy will evaluate the patient if patient doesn't require any subacute rehabilitation patient will be discharged today with follow-up with the neurology for possible occipital nerve block. Patient will be discharged on Compazine on as-needed basis for migraine headache and patient will be advised to take [id number] Benadryl with that. Patient already has Benedict and other pain medications at home. She'll continue on as-needed basis for neuropathic pain of the will increase the dose of gabapentin. 09/15/2019 Patient doesn't want to go home until she sees a neurologist or Dr. Gonsales. Patient is still having headache but better but this headache appears to be secondary to cervical cephalalgia rather than migraine. And the patient feels the same day has a headache is different from her migraine attacks. Constitutional: Denied any fatigue denied any fever. Cardio vascular: denied any chest pain, palpitations Gastrointestinal denied any nausea vomiting Pulmonary: Denied any shortness of breath cough Neurologic denied any new focal deficits All inpatient medications were reviewed and appropriate changes in these medications as dictated in the interval history and assessment and plan. Objective - Vital Signs Vital signs: Vital Signs Temp 98.9 F 09/15/19 08:00 Pulse 58 L 09/15/19 08:00 Resp 18 09/15/19 08:00 BP 125/74 09/15/19 08:00 Pulse Ox 95 09/15/19 08:00 Intake & Output 09/14/19 09/15/19 09/15/19 18:59 06:59 18:59 Intake Total 237 120 Balance 237 120 Weight 125.5 kg Intake: Oral 237 120 - Exam PHYSICAL EXAMINATION: GENERAL: The patient is alert and oriented x3, not in any acute distress. Well developed, well nourished. HEENT: Pupils are round and equally reacting to light. EOMI. No scleral icterus. No conjunctival pallor. Normocephalic, atraumatic. No pharyngeal erythema. No thyromegaly. CARDIOVASCULAR: S1 and S2 present. No murmurs, rubs, or gallops. PULMONARY: Chest is clear to auscultation, no wheezing or crackles. ABDOMEN: Soft, nontender, nondistended, normoactive bowel sounds. No palpable organomegaly. MUSCULOSKELETAL: No joint swelling or deformity. EXTREMITIES: No cyanosis, clubbing, or pedal edema. NEUROLOGICAL: Gross neurological examination did not reveal any focal deficits. SKIN: No rashes. - Labs CBC & Chem 7: 09/12/19 13:25 09/12/19 13:25 Labs: Abnormal Lab Results - Last 24 Hours (Table) 09/14/19 09/14/19 09/14/19 Range/Units 11:51 16:59 19:45 POC Glucose (mg/dL) 301 H 356 H 382 H (75-99) mg/dL 09/15/19 Range/Units 05:49 POC Glucose (mg/dL) 204 H (75-99) mg/dL Assessment and Plan Plan: Headache most probably secondary to cervical cephalalgia continue with present pain medications anti-inflammatory medications patient is already on the steroids for her adrenal insufficiency. Patient will be evaluated by neurology tomorrow -Chest pain rule out acute causes syndromes patient was cleared from cardiology perspective -Coronary artery disease -History of migraine continue with the Reglan or Compazine patient is not a good candidate for the sumatriptan as there was significant coronary artery disease and patient was tachycardic when she came to the hospital -Essential hypertension -Type 2 diabetes mellitus
[2019-09-15 12:22] LABS: Glucose,Whole Blood 288 mg/dL (75-99)
[2019-09-15 16:48] LABS: Glucose,Whole Blood 184 mg/dL (75-99)
[2019-09-15 20:46] LABS: Glucose,Whole Blood 289 mg/dL (75-99)
[2019-09-15] MEDS: METOPROLOL SUCCINATE (ER) 50 MG TAB.ER.24H PO SCH (20:53)
[2019-09-15] MEDS: INSULIN DETEMIR (LEVEMIR) 100 UNIT/ML SYR SQ SCH (20:55)
[2019-09-15] MEDS: ATORVASTATIN 40 MG TAB PO SCH (21:07)
[2019-09-16] MEDS: HYDROcodone/APAP 10-325MG 1 EACH TAB PO PRN ×4 (01:58→15:42)
[2019-09-16] MEDS: NITROGLYCERIN OINT 1 INCH/GM PACKET TOPICAL SCH ×3 (05:23→16:42)
[2019-09-16 05:38] VITALS: BP 177/76; PULSE 53; TEMP 98
[2019-09-16 07:28] LABS: Glucose,Whole Blood 191 mg/dL (75-99)
[2019-09-16] MEDS ORDERED: INSULIN ASPART (NovoLOG) 100 UNIT/ML VIAL SQ SCH (07:30)
[2019-09-16] MEDS: LISINOPRIL 5 MG TAB PO SCH (07:58)
[2019-09-16] MEDS: ASPIRIN 325 MG TAB PO SCH (07:59)
[2019-09-16] MEDS: VENLAFAXINE HCL 75 MG TAB PO SCH (07:59)
[2019-09-16] MEDS: TOPIRAMATE 25 MG TAB PO SCH (07:59)
[2019-09-16] MEDS: MAGNESIUM OXIDE 400 MG TAB PO SCH (07:59)
[2019-09-16] MEDS: GABAPENTIN 100 MG CAP PO SCH (07:59)
[2019-09-16] MEDS: POTASSIUM CHLORIDE ER 20 MEQ TAB.ER PO SCH (07:59)
[2019-09-16] MEDS: PANTOPRAZOLE 40 MG TABLET PO SCH (07:59)
[2019-09-16] MEDS: INSULIN ASPART (NovoLOG) 100 UNIT/ML VIAL SQ SCH ×5 (08:00→17:20)
[2019-09-16] MEDS: HYDROCORTISONE 10 MG TAB PO SCH ×2 (08:05→10:39)
[2019-09-16] MEDS: BRIMONIDINE TARTRATE 0.2% DROPS 5 ML BTL RIGHT EYE SCH (08:05)
[2019-09-16] MEDS ORDERED: ACETAMINOPHEN TAB 500 MG TAB PO STA (09:32)
[2019-09-16] MEDS ORDERED: MAGNESIUM SULFATE-D5W PMX 1 GM in DEXTROSE/WATER 1 100ML.BAG IVPB ONE (09:33)
[2019-09-16] MEDS ORDERED: diphenhydrAMINE 50 MG/ML 1 ML VIAL IVP STA (09:35)
[2019-09-16] MEDS ORDERED: MAGNESIUM OXIDE 400 MG TAB PO STA (10:34)
[2019-09-16] MEDS ORDERED: diphenhydrAMINE 25 MG CAP PO STA (10:35)
[2019-09-16 12:30] LABS: Glucose,Whole Blood 118 mg/dL (75-99)
--- NOTE | 2019-09-16 14:30 | P.DS ---
Providers Date of admission: 09/15/19 09:10 Expected date of discharge: 09/16/19 Attending physician: Andrew Gonsales MD Consults: 09/12/19 14:30 Consult Physician Urgent Consulting Provider: [facility] Consult Reason/Comments: Unstable angina Do you want consulting provider notified?: Yes 09/15/19 13:29 Consult Physician Routine Consulting Provider: Beto Ball Consult Reason/Comments: headache Do you want consulting provider notified?: Yes Primary care physician: Andrew Gonsales MD Hospital Course: Final Diagnoses: Headache, possibly secondary to cervical cephalalgia, neurology evaluation pending. Chest Pain, acute coronary syndrome ruled out as per cardiology History of migraines CAD Essential hypertension Diabetes mellitus type 2 Hospital course: This is a pleasant 68-year-old female admitted with worsening headache, possibly occipital neuralgia, atypical chest pain, and multiple other medical issues. Evaluated and cleared by cardiology for discharge. Topamax had been prescribed on her last visit which patient stated unable to tolerate, made her feel "loopy". Patient requesting Dilaudid for headache; Receiving Tylenol, magnesium and Benadryl together for headache control. Neurology consulted, evaluations/recommendations pending. Discussed potential outpatient occipital nerve block. Significant clinical improvement. Patient will be discharged home today pending neurology's evaluation, to see recommendations and clearance. EXAM: GENERAL: alert and oriented x3, no acute distress. HEENT: Pupils are round and equally reacting to light. EOMI. No scleral icterus. No conjunctival pallor. Normocephalic, atraumatic. No pharyngeal erythema. No thyromegaly. CARDIOVASCULAR: S1 and S2 present. No murmurs, rubs, or gallops. PULMONARY: Chest is clear to auscultation, no wheezing or crackles. ABDOMEN: Soft, nontender, nondistended, normoactive bowel sounds. No palpable organomegaly. EXTREMITIES: No cyanosis, clubbing, or pedal edema. NEUROLOGICAL: Gross neurological examination did not reveal any focal deficits. The impression and plan of care has been dictated as directed. : I performed a history and examination of this patient, discussed the same with the dictator. I agree with the dictator's note ,documented as a scribe. Any additional findings or plans will be noted. Patient Condition at Discharge: Stable Plan - Discharge Summary Discharge Rx Participant: No New Discharge Prescriptions: New Gabapentin [Neurontin] 300 mg PO TID #60 cap Prochlorperazine [Compazine] 10 mg PO BID PRN #20 tab PRN Reason: Headache Continue Cholecalciferol [Vitamin D3 (25 Mcg = 1000 Iu)] 3,000 unit PO DAILY@0700 Ondansetron [Zofran] 4 mg PO BID PRN PRN Reason: Nausea And Vomiting Metoprolol Succinate (ER) [Toprol XL] 50 mg PO HS Meclizine [Antivert] 25 mg PO QID PRN PRN Reason: Vertigo Hydrocortisone [Cortef] 15 mg PO AC-BRKFST Hydrocortisone [Cortef] 5 mg PO HS Aspirin 81 mg PO DAILY #0 Glucagon Emergency Kit 1 mg IM ONCE PRN PRN Reason: Hypoglycemia Ferrous Sulfate [Iron (65 MG Elemental)] 325 mg PO DAILY Vitamin B-Complex Drops 1 drop PO BID Thiamine [Vitamin B-1] 100 mg PO DAILY Folic Acid 0.4 mg PO DAILY Multivitamins, Thera Liquid [Theragran Liquid (formulary)] 30 ml PO DAILY L.acidoph,Paracasei, B.lactis [Probiotic] 2 cap PO BID Melatonin 5 mg PO HS PRN PRN Reason: Insomnia Cranberry 300mg 300 mg PO BID Potassium 99 mg PO DAILY Lisinopril [Zestril] 15 mg PO QAM Atorvastatin [Lipitor] 40 mg PO HS #30 tab HYDROcodone/APAP 10-325MG [[place] 10-325] 1 tab PO TID PRN PRN Reason: Pain Pantoprazole [Protonix] 40 mg PO DAILY Insulin Glargine [Lantus] 23 unit SQ HS Insulin Aspart [NovoLOG Flexpen] 14 unit SQ AC-BRKFST Insulin Aspart [NovoLOG Flexpen] 18 units SQ AC-LUNCH Insulin Aspart [NovoLOG Flexpen] 20 units SQ AC-SUPPER Venlafaxine HCl [Effexor] 75 mg PO DAILY Hydrocortisone [Cortef] 10 mg PO AC-LUNCH Brimonidine Tartrate [Alphagan P 0.2% Ophth Soln] 1 drops RIGHT EYE BID Acetaminophen [Tylenol Extra Strength] 1,000 mg PO DAILY PRN PRN Reason: Migraine Headache Changed Magnesium Oxide [Mag-Ox] 400 mg PO BID #1 tab Discontinued Promethazine HCl [Phenergan Syrup] 6.25 mg PO DAILY PRN PRN Reason: ALLERGIES Topiramate [Topamax] 50 mg PO DAILY #60 tab Gabapentin [Neurontin] 200 mg PO BID #12 cap Metoclopramide HCl [Reglan] 5 mg PO DAILY PRN PRN Reason: Migraine Headache Discharge Medication List Cholecalciferol [Vitamin D3 (25 Mcg = 1000 Iu)] 3,000 unit PO DAILY@0700 12/01/14 [History] Ondansetron [Zofran] 4 mg PO BID PRN 10/12/15 [History] Metoprolol Succinate (ER) [Toprol XL] 50 mg PO HS 07/06/17 [History] Meclizine [Antivert] 25 mg PO QID PRN 11/26/17 [History] Hydrocortisone [Cortef] 15 mg PO AC-BRKFST 05/18/18 [History] Hydrocortisone [Cortef] 5 mg PO HS 06/26/18 [History] Aspirin 81 mg PO DAILY #0 07/02/18 [Rx] Glucagon Emergency Kit 1 mg IM ONCE PRN 08/12/18 [History] Cranberry 300mg 300 mg PO BID 10/08/18 [History] Ferrous Sulfate [Iron (65 MG Elemental)] 325 mg PO DAILY 10/08/18 [History] Folic Acid 0.4 mg PO DAILY 10/08/18 [History] L.acidoph,Paracasei, B.lactis [Probiotic] 2 cap PO BID 10/08/18 [History] Melatonin 5 mg PO HS PRN 10/08/18 [History] Multivitamins, Thera Liquid [Theragran Liquid (formulary)] 30 ml PO DAILY 10/08/18 [History] Potassium 99 mg PO DAILY 10/08/18 [History] Thiamine [Vitamin B-1] 100 mg PO DAILY 10/08/18 [History] Vitamin B-Complex Drops 1 drop PO BID 10/08/18 [History] Lisinopril [Zestril] 15 mg PO QAM 11/08/18 [History] Atorvastatin [Lipitor] 40 mg PO HS #30 tab 11/16/18 [Rx] HYDROcodone/APAP 10-325MG [[place] 10-325] 1 tab PO TID PRN 12/26/18 [History] Insulin Aspart [NovoLOG Flexpen] 14 unit SQ -BRKFST 01/29/19 [History] Insulin Aspart [NovoLOG Flexpen] 18 units SQ AC-LUNCH 01/29/19 [History] Insulin Aspart [NovoLOG Flexpen] 20 units SQ AC-SUPPER 01/29/19 [History] Insulin Glargine [Lantus] 23 unit SQ HS 01/29/19 [History] Pantoprazole [Protonix] 40 mg PO DAILY 01/29/19 [History] Venlafaxine HCl [Effexor] 75 mg PO DAILY 03/12/19 [History] Hydrocortisone [Cortef] 10 mg PO AC-LUNCH 08/30/19 [History] Brimonidine Tartrate [Alphagan P 0.2% Ophth Soln] 1 drops RIGHT EYE BID 08/31/19 [History] Acetaminophen [Tylenol Extra Strength] 1,000 mg PO DAILY PRN 09/12/19 [History] Gabapentin [Neurontin] 300 mg PO TID #60 cap 09/14/19 [Rx] Prochlorperazine [Compazine] 10 mg PO BID PRN #20 tab 09/14/19 [Rx] Magnesium Oxide [Mag-Ox] 400 mg PO BID #1 tab 09/16/19 [Rx] Follow up Appointment(s)/Referral(s): China Barry MD [STAFF PHYSICIAN] - 1 Week (office will call you with appt. time and date.) Andrew Gonsales MD [Primary Care Provider] - 09/18/19 2:15 pm Patient Instructions/Handouts: Acute Nausea and Vomiting (DC)
--- NOTE | 2019-09-16 16:58 | MR ---
EXAMINATION TYPE: MR cervical spine wo con DATE OF EXAM: 09/16/2019 COMPARISON: None HISTORY: 68-year-old female cervical neck pain with headache TECHNIQUE: Multiplanar, multisequence images of the cervical spine were acquired. FINDINGS: No craniocervical junction abnormality, predental space widening, or prevertebral soft tissue swellin g. Preserved alignment of the cervical spine. No suspicious bone marrow placement. Moderate disposition plain degenerative change in C4-C7 levels with disc space narrowing, disc desicc ation, disc osteophyte complex formation. Some ligamentum flavum thickening is also present as well as multilevel facet and uncovertebral joint arthropathy. There seems to be rightward truncal shift. This could be secondary to a scoliosis lower down. At C2-C3, no spinal canal stenosis. At C3-C4, facet arthropathy with mild right neuroforaminal narrowing. No spinal canal stenosis. At C4-C5, mild disc osteophyte complex with uncovertebral joint and facet arthropathy. Moderate left and mild right neural foraminal stenosis. Very mild narrowing of the spinal canal. At C5-C6, discussed by complex with continuous uncovertebral joint and facet arthropathy. Changes res ulting in moderate to severe right neuroforaminal stenosis with minimal narrowing of the spinal canal . At C6-C7, disc osteophyte complex with hypertrophic facet arthropathy. No significant canal or forami nal stenosis. At C7-T1, hypertrophic facet arthropathy. No significant canal or foraminal stenosis. Normal course, caliber, and signal intensity of the cervical spinal cord. Asymmetric soft tissue thickening along the left anterolateral oropharynx, refer to axial image 44, p ossible lingual tonsillar hypertrophy. IMPRESSION: 1. Moderate degenerative disc disease especially from C4 through C7 levels. Multilevel facet and unco vertebral joint arthropathy. 2. Changes result in mild narrowing of the spinal canal at C4-C5 and C5-C6. No high-grade canal compr omise or cord compression. 3. Variable neuroforaminal stenoses as outlined above, moderate to severe on the right at C5-C6. 4. Some asymmetric soft tissue thickening anterolateral left oropharynx probably corresponds to lingu al tonsillar hypertrophy. Correlate with direct inspection.
[2019-09-16 17:03] LABS: Glucose,Whole Blood 273 mg/dL (75-99)
== END 2019-09-16 18:34 | disposition home or self-care (01) | DRG 103 ==
LOC: EC 12:10 → 3SCARD 14:41 → OBSVTOIN 09-15 09:10 → 6NMEDSUR 09-15 13:45
PROVIDERS: ADMIT Family Medicine; ATTEND Family Medicine
DX: G44.89 Other headache syndrome (principal); E27.40 Unspecified adrenocortical insufficiency; I25.110 Atherosclerotic heart disease of native coronary artery with unstable angina pectoris; Z68.43 Body mass index [BMI] 50.0-59.9, adult; I71.2 Thoracic aortic aneurysm, without rupture; R07.89 Other chest pain; E66.9 Obesity, unspecified; E11.9 Type 2 diabetes mellitus without complications; E78.5 Hyperlipidemia, unspecified; F32.9 Major depressive disorder, single episode, unspecified; G43.909 Migraine, unspecified, not intractable, without status migrainosus; I10 Essential (primary) hypertension; J44.9 Chronic obstructive pulmonary disease, unspecified; R77.8 Other specified abnormalities of plasma proteins; K21.9 Gastro-esophageal reflux disease without esophagitis; M54.81 Occipital neuralgia; M79.7 Fibromyalgia; E21.3 Hyperparathyroidism, unspecified; G47.30 Sleep apnea, unspecified; R01.1 Cardiac murmur, unspecified; R00.0 Tachycardia, unspecified; M15.9 Polyosteoarthritis, unspecified; I83.90 Asymptomatic varicose veins of unspecified lower extremity; Z79.4 Long term (current) use of insulin; Z79.82 Long term (current) use of aspirin; Z79.899 Other long term (current) drug therapy; Z88.1 Allergy status to other antibiotic agents; Z88.5 Allergy status to narcotic agent; Z98.1 Arthrodesis status; Z88.0 Allergy status to penicillin; Z88.2 Allergy status to sulfonamides; Z88.8 Allergy status to other drugs, medicaments and biological substances; Z86.718 Personal history of other venous thrombosis and embolism; Z87.442 Personal history of urinary calculi; Z90.710 Acquired absence of both cervix and uterus; Z86.14 Personal history of Methicillin resistant Staphylococcus aureus infection; Z87.01 Personal history of pneumonia (recurrent); Z87.440 Personal history of urinary (tract) infections; Z90.49 Acquired absence of other specified parts of digestive tract; Z89.421 Acquired absence of other right toe(s); Z80.49 Family history of malignant neoplasm of other genital organs; Z82.49 Family history of ischemic heart disease and other diseases of the circulatory system; Z83.3 Family history of diabetes mellitus; Z82.3 Family history of stroke
CPT/HCPCS: 36415; 71046; 72141; 80053; 80061; 82150; 83690; 83735; 84484; 85025; 85610; 85730; 93005; 93306; 96365; 96375; 96376; 99291

== ENCOUNTER 2019-09-17 19:13 | Emergency (ER) | payer MEDICARE, BC ==
[2019-09-17 19:18] VITALS: RESP 18; TEMP 98.2
[2019-09-17] MEDS ORDERED: HYDROmorphone 0.5 MG/0.5 ML SYRINGE IVP STA ×2 (19:56→22:27)
[2019-09-17] MEDS ORDERED: SODIUM CHLORIDE 0.9% 1,000 ML IV STA (19:56)
[2019-09-17] MEDS ORDERED: ONDANSETRON 4 MG/2 ML VIAL IVP STA (19:56)
--- NOTE | 2019-09-17 19:57 | ED ---
Headache HPI - General Chief Complaint: Headache Stated Complaint: head pain,sever weakness,vomiting Mode of arrival: wheelchair Limitations: no limitations - History of Present Illness Initial Comments: Patient is 68-year-old female with history of chronic headaches presenting to the emergency department with a chief complaint of headache. Patient states she was in the emergency department recently for headache. Patient states she was discharged yesterday and the headache has returned. States the headache is exactly the same and in the same region. States the location is in the right frontal region as well as the occipital region. States typically doesn't occipital nerve block which helps with pain but she is not scheduled to see him until next week. States otherwise the headache feels the same to her previous headaches. States nausea with multiple episodes of nonbilious, nonbloody vomiting. Denies any visual disturbances one-sided weakness or paresthesias. Denies any chest pain shortness of breath back pain abdominal pain or focal deficits. - Related Data Home Medications Medication Instructions Recorded Confirmed Cholecalciferol [Vitamin D3 (25 3,000 unit PO DAILY@0700 12/01/14 09/12/19 Mcg = 1000 Iu)] Ondansetron [Zofran] 4 mg PO BID PRN 10/12/15 09/12/19 Metoprolol Succinate (ER) [Toprol 50 mg PO HS 07/06/17 09/12/19 XL] Meclizine [Antivert] 25 mg PO QID PRN 11/26/17 09/12/19 Hydrocortisone [Cortef] 15 mg PO AC-BRKFST 05/18/18 09/12/19 Hydrocortisone [Cortef] 5 mg PO HS 06/26/18 09/12/19 Glucagon Emergency Kit 1 mg IM ONCE PRN 08/12/18 09/12/19 Cranberry 300mg 300 mg PO BID 10/08/18 09/12/19 Ferrous Sulfate [Iron (65 MG 325 mg PO DAILY 10/08/18 09/12/19 Elemental)] Folic Acid 0.4 mg PO DAILY 10/08/18 09/12/19 L.acidoph,Paracasei, B.lactis 2 cap PO BID 10/08/18 09/12/19 [Probiotic] Melatonin 5 mg PO HS PRN 10/08/18 09/12/19 Multivitamins, Thera Liquid 30 ml PO DAILY 10/08/18 09/12/19 [Theragran Liquid (formulary)] Potassium 99 mg PO DAILY 10/08/18 09/12/19 Thiamine [Vitamin B-1] 100 mg PO DAILY 10/08/18 09/12/19 Vitamin B-Complex Drops 1 drop PO BID 10/08/18 09/12/19 Lisinopril [Zestril] 15 mg PO QAM 11/08/18 09/12/19 HYDROcodone/APAP 10-325MG [[place] 1 tab PO TID PRN 12/26/18 09/12/19 10-325] Insulin Aspart [NovoLOG Flexpen] 14 unit SQ AC-BRKFST 01/29/19 09/12/19 Insulin Aspart [NovoLOG Flexpen] 18 units SQ AC-LUNCH 01/29/19 09/12/19 Insulin Aspart [NovoLOG Flexpen] 20 units SQ AC-SUPPER 01/29/19 09/12/19 Insulin Glargine [Lantus] 23 unit SQ HS 01/29/19 09/12/19 Pantoprazole [Protonix] 40 mg PO DAILY 01/29/19 09/12/19 Venlafaxine HCl [Effexor] 75 mg PO DAILY 03/12/19 09/12/19 Hydrocortisone [Cortef] 10 mg PO AC-LUNCH 08/30/19 09/12/19 Brimonidine Tartrate [Alphagan P 1 drops RIGHT EYE BID 08/31/19 09/12/19 0.2% Ophth Soln] Acetaminophen [Tylenol Extra 1,000 mg PO DAILY PRN 09/12/19 09/12/19 Strength] Previous Rx's Medication Instructions Recorded Aspirin 81 mg PO DAILY #0 07/02/18 Atorvastatin [Lipitor] 40 mg PO HS #30 tab 11/16/18 Gabapentin [Neurontin] 300 mg PO TID #60 cap 09/14/19 Prochlorperazine [Compazine] 10 mg PO BID PRN #20 tab 09/14/19 Magnesium Oxide [Mag-Ox] 400 mg PO BID #1 tab 09/16/19 Allergies Allergy/AdvReac Type Severity Reaction Status Date / Time butorphanol tartrate Allergy BLISTERS Verified 09/17/19 19:58 [From Stadol] IN MOUTH ceftriaxone [From Rocephin] Allergy Unknown Verified 09/17/19 19:58 clarithromycin [From Biaxin] Allergy Rash/Hives Verified 09/17/19 19:58 codeine Allergy Rash/Hives Verified 09/17/19 19:58 ergotamine tartrate Allergy Unknown Verified 09/17/19 19:58 [From Cafergot] erythromycin base Allergy RASH, GI Verified 09/17/19 19:58 [From E-Mycin] SYMPTOMS ketorolac tromethamine Allergy Rash/Hives Verified 09/17/19 19:58 [From Toradol] liraglutide [From Victoza] Allergy Rash/Hives Verified 09/17/19 19:58 morphine Allergy Rash/Hives Verified 09/17/19 19:58 Penicillins Allergy Rash/Hives Verified 09/17/19 19:58 pentazocine lactate Allergy SEVERE Verified 09/17/19 19:58 [From Talwin] BLISTERS IN MOUTH pregabalin [From Lyrica] Allergy Rash/Hives Verified 09/17/19 19:58 propoxyphene HCl Allergy Rash/Hives Verified 09/17/19 19:58 [From Darvon] Sulfa (Sulfonamide Allergy Rash/Hives Verified 09/17/19 19:58 Antibiotics) tramadol Allergy Unknown Verified 09/17/19 19:58 monosodium glutamate [MSG] AdvReac Nausea & Verified 09/17/19 19:58 Vomiting nalbuphine HCl [From Nubain] AdvReac Nausea & Verified 09/17/19 19:58 Vomiting Review of Systems ROS Statement: Those systems with pertinent positive or pertinent negative responses have been documented in the HPI. ROS Other: All systems not noted in ROS Statement are negative. 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, R wrist/elbow nerve repair, bone removed R shoulder, 4th toe R foot partial amputation, bilateral feet/bunionectomies, R knee arthroscopies, R orbit decompression with ethmoidectomy and eyelid lift, EGD, colonoscopies, cystocopies, lithotripsy/stents, total hysterectomy, bilateral breast reduction, bilateral cataract removals.Parathyroid surgery - April 2019, pain clinic procedures Past Anesthesia/Blood Transfusion Reactions: No Reported Reaction Additional Past Anesthesia/Blood Transfusion Reaction / Comment(s): never recieved blood Past Psychological History: No Psychological Hx Reported Smoking Status: Never smoker Past Alcohol Use History: Occasional Past Drug Use History: None Reported - Past Family History Father Family Medical History: Coronary Artery Disease (CAD), CVA/TIA, Diabetes Mellitus, Myocardial Infarction (SD), Pneumonia Additional Family Medical History / Comment(s): Father at the age of 78yrs from SD and pneumonia. Mother Family Medical History: Cancer Additional Family Medical History / Comment(s): Mother had uterine cancer. She recently at the age of 96yrs old. General Exam Limitations: no limitations General appearance: alert, in no apparent distress Head exam: Present: atraumatic, normocephalic, normal inspection Eye exam: Present: normal appearance, PERRL, EOMI Pupils: Present: normal accommodation ENT exam: Present: normal exam, normal oropharynx, mucous membranes moist, TM's normal bilaterally, normal external ear exam Neck exam: Present: normal inspection, full ROM Respiratory exam: Present: normal lung sounds bilaterally Cardiovascular Exam: Present: regular rate, normal rhythm, normal heart sounds Extremities exam: Present: normal inspection, full ROM Back exam: Present: normal inspection, full ROM Neurological exam: Present: alert, oriented X3, CN II-XII intact, normal gait, reflexes normal Psychiatric exam: Present: normal affect, normal mood Skin exam: Present: warm, dry, intact, normal color Course Vital Signs 09/17/19 19:14 Temperature 98.2 F Pulse Rate 93 Respiratory 18 Rate Blood Pressure 163/88 O2 Sat by Pulse 98 Oximetry Medical Decision Making - Medical Decision Making patient is 68-year-old female with history of chronic headaches presenting to emergency Department with a chief complaint of headache. Neurological examination is unremarkable. No focal neural deficits. Patient is complaining of nausea with multiple episodes of nonbilious, nonbloody vomiting. Patient was given antiemetics and fluids and analgesics. On reevaluation patient reports improvement of symptoms and states she is comfortable going home. Return parameters thoroughly discussed with patient was understanding and agreeable. Case discussed with physician. Disposition Clinical Impression: Headache Disposition: HOME SELF-CARE Condition: Stable Instructions (If sedation given, give patient instructions): Acute Headache (ED) Additional Instructions: Follow-up with primary care. Return to emergency department if symptoms worsen. Is patient prescribed a controlled substance at d/c from ED?: No Referrals: Andrew Gonsales MD [Primary Care Provider] - 1-2 days Time of Disposition: 22:29
[2019-09-17] MEDS ORDERED: METOCLOPRAMIDE 5 MG/ML 2 ML VIAL IVP STA (21:11)
[2019-09-17] MEDS ORDERED: diphenhydrAMINE 50 MG/ML 1 ML VIAL IVP STA (21:11)
[2019-09-17 23:22] VITALS: BP 134/74; PULSE 72
== END 2019-09-17 23:42 | disposition home or self-care (01) ==
LOC: EC 19:13
DX: R51 Headache (principal); R53.1 Weakness; R11.2 Nausea with vomiting, unspecified; J44.9 Chronic obstructive pulmonary disease, unspecified; E11.9 Type 2 diabetes mellitus without complications; I10 Essential (primary) hypertension; E78.5 Hyperlipidemia, unspecified; G47.30 Sleep apnea, unspecified; Z79.4 Long term (current) use of insulin; Z79.899 Other long term (current) drug therapy; Z88.8 Allergy status to other drugs, medicaments and biological substances; Z88.1 Allergy status to other antibiotic agents; Z88.5 Allergy status to narcotic agent; Z88.0 Allergy status to penicillin; Z91.02 Food additives allergy status; Z86.718 Personal history of other venous thrombosis and embolism; Z99.89 Dependence on other enabling machines and devices; Z88.2 Allergy status to sulfonamides
CPT/HCPCS: 99283; 96374; 96375 ×3; 96376; 96361; J1200; J2765; J2405; J1170

== ENCOUNTER 2019-09-18 22:12 | Inpatient (IN) | payer MEDICARE, BC ==
[2019-09-18] MEDS ORDERED: ONDANSETRON 4 MG/2 ML VIAL IVP STA (22:32)
[2019-09-18] MEDS ORDERED: HYDROmorphone 0.5 MG/0.5 ML SYRINGE IVP STA (22:32)
[2019-09-18] MEDS ORDERED: SODIUM CHLORIDE 0.9% 500 ML 500 ML IV ONE (22:32)
[2019-09-18] MEDS: SODIUM CHLORIDE 0.9% 1,000 ML IV SCH (23:14)
[2019-09-18 23:42] LABS: Basophils % (A) 0 %; Eosinophils % (A) 0 %; HCT 41.2 % (34.0-46.0); HGB 13.6 gm/dL (11.4-16.0); Lymphocytes # (A) 1.2 k/uL (1.0-4.8); Lymphocytes % (A) 11 %; MCH 28.1 pg (25.0-35.0); MCHC 32.9 g/dL (31.0-37.0); MCV 85.5 fL (80.0-100.0); Mean Platelet Volume 8.4; Monocytes # (A) 0.4 k/uL (0-1.0); Monocytes % (A) 4 %; Neutrophils % (A) 83 %; Platelet Count 223 k/uL (150-450); RBC 4.82 m/uL (3.80-5.40); RDW 14.9 % (11.5-15.5); WBC 10.8 k/uL (3.8-10.6)
[2019-09-18 23:53] LABS: ALT 17 U/L (4-34); AST 22 U/L (14-36); African American GFR (CKD) >90 (>60 ml/min/1.73 sqM); Albumin 3.9 g/dL (3.5-5.0); Alkaline Phosphatase 52 U/L (38-126); Anion Gap 10 mmol/L; Blood Urea Nitrogen 17 mg/dL (7-17); Calcium 9.4 mg/dL (8.4-10.2); Carbon Dioxide 22 mmol/L (22-30); Chloride 101 mmol/L (98-107); Glucose 332 mg/dL (74-99); Non-African American GFR(CKD) 83 (>60 ml/min/1.73 sqM); Potassium 4.6 mmol/L (3.5-5.1); Sodium 133 mmol/L (137-145); Total Bilirubin 1.1 mg/dL (0.2-1.3); Total Protein 6.3 g/dL (6.3-8.2)
--- NOTE | 2019-09-19 00:07 | ED ---
Headache HPI - General Chief Complaint: Headache Stated Complaint: Revisit headache, neck pain Time Seen by Provider: 09/18/19 22:18 Mode of arrival: wheelchair Limitations: no limitations - History of Present Illness Initial Comments: 69yo female presenting to the ER today for cc of headache. Patient states that she has history of chronic migraines, however since she fell in March she states that she has has different headaches that are in the back of the head and neck. She states that she has significant relief with occiptal blocks. Patient is unable to get in for a block until next week. Patient states he typical headaches since march has been ongoing this entire week and has no subsided since her hospitalization until yesterday when she received a migraine cocktail. Patient states the headache returned this evening, same characteristics, sharp stabbing headache in the base of the skull. Patient denies visual changes. Denies sudden onset, worst PATEL of her life, fevers, neck stiffness, Admits to nausea, no vomiting since yesterday but is typical of her headaches. Denies weakness of the UE or LE, denies sensation - Related Data Home Medications Medication Instructions Recorded Confirmed Cholecalciferol [Vitamin D3 (25 3,000 unit PO DAILY@0700 12/01/14 09/12/19 Mcg = 1000 Iu)] Ondansetron [Zofran] 4 mg PO BID PRN 10/12/15 09/12/19 Metoprolol Succinate (ER) [Toprol 50 mg PO HS 07/06/17 09/12/19 XL] Meclizine [Antivert] 25 mg PO QID PRN 11/26/17 09/12/19 Hydrocortisone [Cortef] 15 mg PO AC-BRKFST 05/18/18 09/12/19 Hydrocortisone [Cortef] 5 mg PO HS 06/26/18 09/12/19 Glucagon Emergency Kit 1 mg IM ONCE PRN 08/12/18 09/12/19 Cranberry 300mg 300 mg PO BID 10/08/18 09/12/19 Ferrous Sulfate [Iron (65 MG 325 mg PO DAILY 10/08/18 09/12/19 Elemental)] Folic Acid 0.4 mg PO DAILY 10/08/18 09/12/19 L.acidoph,Paracasei, B.lactis 2 cap PO BID 10/08/18 09/12/19 [Probiotic] Melatonin 5 mg PO HS PRN 10/08/18 09/12/19 Multivitamins, Thera Liquid 30 ml PO DAILY 10/08/18 09/12/19 [Theragran Liquid (formulary)] Potassium 99 mg PO DAILY 10/08/18 09/12/19 Thiamine [Vitamin B-1] 100 mg PO DAILY 10/08/18 09/12/19 Vitamin B-Complex Drops 1 drop PO BID 10/08/18 09/12/19 Lisinopril [Zestril] 15 mg PO QAM 11/08/18 09/12/19 HYDROcodone/APAP 10-325MG [[place] 1 tab PO TID PRN 12/26/18 09/12/19 10-325] Insulin Aspart [NovoLOG Flexpen] 14 unit SQ AC-BRKFST 01/29/19 09/12/19 Insulin Aspart [NovoLOG Flexpen] 18 units SQ AC-LUNCH 01/29/19 09/12/19 Insulin Aspart [NovoLOG Flexpen] 20 units SQ AC-SUPPER 01/29/19 09/12/19 Insulin Glargine [Lantus] 23 unit SQ HS 01/29/19 09/12/19 Pantoprazole [Protonix] 40 mg PO DAILY 01/29/19 09/12/19 Venlafaxine HCl [Effexor] 75 mg PO DAILY 03/12/19 09/12/19 Hydrocortisone [Cortef] 10 mg PO AC-LUNCH 08/30/19 09/12/19 Brimonidine Tartrate [Alphagan P 1 drops RIGHT EYE BID 08/31/19 09/12/19 0.2% Ophth Soln] Acetaminophen [Tylenol Extra 1,000 mg PO DAILY PRN 09/12/19 09/12/19 Strength] Previous Rx's Medication Instructions Recorded Aspirin 81 mg PO DAILY #0 07/02/18 Atorvastatin [Lipitor] 40 mg PO HS #30 tab 11/16/18 Gabapentin [Neurontin] 300 mg PO TID #60 cap 09/14/19 Prochlorperazine [Compazine] 10 mg PO BID PRN #20 tab 09/14/19 Magnesium Oxide [Mag-Ox] 400 mg PO BID #1 tab 09/16/19 Allergies Allergy/AdvReac Type Severity Reaction Status Date / Time butorphanol tartrate Allergy BLISTERS Verified 09/18/19 22:16 [From Stadol] IN MOUTH ceftriaxone [From Rocephin] Allergy Unknown Verified 09/18/19 22:16 clarithromycin [From Biaxin] Allergy Rash/Hives Verified 09/18/19 22:16 codeine Allergy Rash/Hives Verified 09/18/19 22:16 ergotamine tartrate Allergy Unknown Verified 09/18/19 22:16 [From Cafergot] erythromycin base Allergy RASH, GI Verified 09/18/19 22:16 [From E-Mycin] SYMPTOMS ketorolac tromethamine Allergy Rash/Hives Verified 09/18/19 22:16 [From Toradol] liraglutide [From Victoza] Allergy Rash/Hives Verified 09/18/19 22:16 morphine Allergy Rash/Hives Verified 09/18/19 22:16 Penicillins Allergy Rash/Hives Verified 09/18/19 22:16 pentazocine lactate Allergy SEVERE Verified 09/18/19 22:16 [From Talwin] BLISTERS IN MOUTH pregabalin [From Lyrica] Allergy Rash/Hives Verified 09/18/19 22:16 propoxyphene HCl Allergy Rash/Hives Verified 09/18/19 22:16 [From Darvon] Sulfa (Sulfonamide Allergy Rash/Hives Verified 09/18/19 22:16 Antibiotics) tramadol Allergy Unknown Verified 09/18/19 22:16 monosodium glutamate [MSG] AdvReac Nausea & Verified 09/18/19 22:16 Vomiting nalbuphine HCl [From Nubain] AdvReac Nausea & Verified 09/18/19 22:16 Vomiting Review of Systems ROS Statement: Those systems with pertinent positive or pertinent negative responses have been documented in the HPI. ROS Other: All systems not noted in ROS Statement are negative. 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, R wrist/elbow nerve repair, bone removed R shoulder, 4th toe R foot partial amputation, bilateral feet/bunionectomies, R knee arthroscopies, R orbit decompression with ethmoidectomy and eyelid lift, EGD, colonoscopies, cystocopies, lithotripsy/stents, total hysterectomy, bilateral breast reduction, bilateral cataract removals.Parathyroid surgery - April 2019, pain clinic procedures Past Anesthesia/Blood Transfusion Reactions: No Reported Reaction Additional Past Anesthesia/Blood Transfusion Reaction / Comment(s): never recieved blood Past Psychological History: No Psychological Hx Reported Smoking Status: Never smoker Past Alcohol Use History: Occasional Past Drug Use History: None Reported - Past Family History Father Family Medical History: Coronary Artery Disease (CAD), CVA/TIA, Diabetes Mellitus, Myocardial Infarction ([place]), Pneumonia Additional Family Medical History / Comment(s): Father at the age of 78yrs from [place] and pneumonia. Mother Family Medical History: Cancer Additional Family Medical History / Comment(s): Mother had uterine cancer. She recently at the age of 96yrs old. General Exam Limitations: no limitations Course Vital Signs 09/18/19 09/19/19 09/19/19 22:13 00:22 00:29 Temperature 98.1 F 98.7 F Pulse Rate 112 H 105 H 99 Respiratory 18 15 19 Rate Blood Pressure 159/92 165/91 173/120 O2 Sat by Pulse 96 94 L 94 L Oximetry 09/19/19 01:34 Temperature Pulse Rate 107 H Respiratory 16 Rate Blood Pressure 129/75 O2 Sat by Pulse 95 Oximetry Medical Decision Making - Medical Decision Making Although patient is insistent that her headache is typical, it has been i ntractable to IV analgesics, there are no focal neurological deficits. Pt denies worst PATEL of her life, of sudden onset, fevers. Patient will be admitted for neurological consultation. Possible MRI of the brain. Patient agreeable and prefers admission at this time. Case discussed with Dr. Garcias who is agreeable to care plan and admission. - Lab Data Result diagrams: 09/18/19 23:25 09/18/19 23:25 Lab Results 09/18/19 09/18/19 Range/Units 23:25 23:25 WBC 10.8 H (3.8-10.6) k/uL RBC 4.82 (3.80-5.40) m/uL Hgb 13.6 (11.4-16.0) gm/dL Hct 41.2 (34.0-46.0) % MCV 85.5 (80.0-100.0) fL MCH 28.1 (25.0-35.0) pg MCHC 32.9 (31.0-37.0) g/dL RDW 14.9 (11.5-15.5) % Plt Count 223 (150-450) k/uL Neutrophils % 83 % Lymphocytes % 11 % Monocytes % 4 % Eosinophils % 0 % Basophils % 0 % Neutrophils # 9.0 H (1.3-7.7) k/uL Lymphocytes # 1.2 (1.0-4.8) k/uL Monocytes # 0.4 (0-1.0) k/uL Eosinophils # 0.0 (0-0.7) k/uL Basophils # 0.0 (0-0.2) k/uL Sodium 133 L (137-145) mmol/L Potassium 4.6 (3.5-5.1) mmol/L Chloride 101 (98-107) mmol/L Carbon Dioxide 22 (22-30) mmol/L Anion Gap 10 mmol/L BUN 17 (7-17) mg/dL Creatinine 0.74 (0.52-1.04) mg/dL Est GFR (CKD-EPI)AfAm >90 (>60 ml/min/1.73 sqM) Est GFR (CKD-EPI)NonAf 83 (>60 ml/min/1.73 sqM) Glucose 332 H (74-99) mg/dL Calcium 9.4 (8.4-10.2) mg/dL Total Bilirubin 1.1 (0.2-1.3) mg/dL AST 22 (14-36) U/L ALT 17 (4-34) U/L Alkaline Phosphatase 52 (38-126) U/L Total Protein 6.3 (6.3-8.2) g/dL Albumin 3.9 (3.5-5.0) g/dL Disposition Clinical Impression: Intractable headache Disposition: ADMITTED IP TO THIS [facility] Condition: Stable Is patient prescribed a controlled substance at d/c from ED?: No Referrals: Andrew Gonsales MD [Primary Care Provider] - 1-2 days Time of Disposition: 02:11 Decision to Admit Reason: Admit from EC Decision Date: 09/19/19 Decision Time: 02:11
[2019-09-19] MEDS ORDERED: INSULIN REGULAR 100 UNIT/ML VIAL SQ ONE (00:18)
[2019-09-19] MEDS ORDERED: hydrALAZINE HCL 20 MG/ML 1 ML VIAL IVP STA (00:20)
[2019-09-19] MEDS: SODIUM CHLORIDE 0.9% 1,000 ML IV SCH (00:24)
[2019-09-19] MEDS ORDERED: HYDROmorphone 1 MG/ML 1 ML SYRINGE IVP STA (00:32)
[2019-09-19] MEDS ORDERED: NALOXONE 0.4 MG/ML 1 ML VIAL IV PRN (02:10)
[2019-09-19] MEDS: HYDROmorphone 1 MG/ML 1 ML SYRINGE IVP PRN ×3 (02:18→08:18)
[2019-09-19 02:39] LABS: Appearance,Urine Clear (Clear); Bilirubin,Urine Negative (Negative); Blood,Urine Negative (Negative); Color,Urine Light Yellow; Glucose,Urine (UA) 4+ (Negative); Ketones,Urine 1+ (Negative); Leukocyte Esterase,Urine Negative (Negative); Nitrite,Urine Negative (Negative); PH, Urine 5.5 (5.0-8.0); Protein,Urine Negative (Negative); Specific Gravity,Urine 1.024 (1.001-1.035); Urobilinogen,Urine <2.0 mg/dL (<2.0)
[2019-09-19 07:13] LABS: Glucose,Whole Blood 198 mg/dL (75-99)
[2019-09-19] MEDS: LISINOPRIL 5 MG TAB PO SCH (08:18)
[2019-09-19] MEDS: INSULIN ASPART (NovoLOG) 100 UNIT/ML VIAL SQ SCH ×4 (08:18→21:05)
[2019-09-19] MEDS ORDERED: HYDROcodone/APAP 10-325MG 1 EACH TAB PO PRN (08:30)
[2019-09-19] MEDS ORDERED: MELATONIN 5 MG TABLET PO PRN (08:30)
[2019-09-19] MEDS ORDERED: PROCHLORPERAZINE 10 MG TAB PO PRN (08:30)
[2019-09-19] MEDS ORDERED: SUMAtriptan SUCCINATE 50 MG TAB PO PRN (08:33)
[2019-09-19] MEDS ORDERED: GABAPENTIN 300 MG CAP PO SCH (09:00)
[2019-09-19] MEDS ORDERED: ACETAMINOPHEN TAB 325 MG TAB PO SCH (09:00)
[2019-09-19] MEDS: THIAMINE 100 MG TAB PO SCH (09:09)
[2019-09-19] MEDS: PANTOPRAZOLE 40 MG TABLET PO SCH (09:09)
[2019-09-19] MEDS: ASPIRIN 81 MG PO SCH (09:09)
[2019-09-19] MEDS: MAGNESIUM OXIDE 400 MG TAB PO SCH ×3 (09:09→21:18)
[2019-09-19] MEDS ORDERED: GABAPENTIN 100 MG CAP PO SCH (09:15)
[2019-09-19] MEDS: VENLAFAXINE HCL 75 MG TAB PO SCH (10:12)
[2019-09-19] MEDS: HYDROCORTISONE 10 MG TAB PO SCH ×3 (10:13→21:19)
[2019-09-19] MEDS: BRIMONIDINE TARTRATE 0.2% DROPS 5 ML BTL RIGHT EYE SCH ×2 (10:13→21:19)
[2019-09-19] MEDS: ONDANSETRON 4 MG/2 ML VIAL IVP PRN ×2 (10:17→19:42)
[2019-09-19] MEDS ORDERED: ACETAMINOPHEN TAB 325 MG TAB PO PRN (12:04)
[2019-09-19] MEDS: HYDROmorphone 0.5 MG/0.5 ML SYRINGE IVP PRN ×2 (12:06→19:41)
[2019-09-19 12:17] LABS: Glucose,Whole Blood 154 mg/dL (75-99)
[2019-09-19] MEDS: diphenhydrAMINE 50 MG/ML 1 ML VIAL IVP PRN ×2 (12:44→21:20)
[2019-09-19] MEDS ORDERED: ONDANSETRON 4 MG/2 ML VIAL IVP STA (14:08)
[2019-09-19] MEDS ORDERED: HYDROmorphone 0.5 MG/0.5 ML SYRINGE IVP STA (14:15)
--- NOTE | 2019-09-19 16:00 | MR ---
EXAMINATION TYPE: MR brain wo/w con DATE OF EXAM: 09/19/2019 COMPARISON: 02/06/2017 MRI, CT brain 08/30/2019 HISTORY: intractable headache with vomiting abnormal ct head CONTRAST: Performed utilizing 6.5 mL intravenous Gadavist gadolinium contrast. TECHNIQUE: Multiplanar, multiecho imaging on a 3.0 [place] magnet is performed through the brain. Stud y is performed within 24 hours of arrival to the hospital. The craniovertebral junction is normal. The pituitary is normal. Diffusion-weighted imaging is performed. No abnormal hyperintensity is present to suggest an acute i ntracranial infarct or acute ischemic change. There appears be an old right basal ganglion lacunar infarct present. This correlates with the CT exa m Periventricular white matter hyperintensity is present on T2 and inversion recovery weighted sequence s. This is moderate volume but appears stable over the interval from 2017. No suspicious acute ischem ic changes are evident Ventricles and sulci are mildly prominent for the patient age. No suspicious enhancement is evident. IMPRESSIONS: 1. Patchy periventricular white matter hyperintensities, likely on the basis of chronic white matter ischemic changes. Findings are stable from 2017. 2. Old right basal ganglion lacunar infarct.
[2019-09-19] MEDS: ACETAMINOPHEN TAB 325 MG TAB PO SCH ×2 (16:20→21:18)
[2019-09-19 17:13] LABS: Glucose,Whole Blood 237 mg/dL (75-99)
[2019-09-19 21:01] LABS: Glucose,Whole Blood 119 mg/dL (75-99)
[2019-09-19] MEDS: METOPROLOL SUCCINATE (ER) 50 MG TAB.ER.24H PO SCH (21:18)
[2019-09-19] MEDS: ATORVASTATIN 40 MG TAB PO SCH (21:18)
[2019-09-19] MEDS: INSULIN DETEMIR (LEVEMIR) 100 UNIT/ML SYR SQ SCH (21:19)
--- NOTE | 2019-09-19 22:11 | P.HPIM ---
History of Present Illness H&P Date: 09/19/19 Chief Complaint: kathrine Pena is a 69 yo F with PMH of severe migraine headaches, recently admitted for the same and last discharged just 3 days ago. She states that after she left the hospital her headaches were almost completely resolved but then came back at home. She tried taking tylenol, magnesium, and reglan at home but it did not help. She endorses photophobia. Denies ear pain or pressure, dizziness, sinus pressure, fever, chills, cough. She does feel her headaches have been much worse over the past month or so ever since she had a fall and has been hard to get back to her previous baseline. She last had occipital nerve blocks about 2 months ago which were very helpful. In the ED her vitals and labs were unremarkable with the exception of glucose 330. MRI brain was performed which was negative for acute process and shows chronic white matter changes associated with migraine. Review of Systems All systems: negative Constitutional: Denies chills, Denies fever Eyes: denies blurred vision, denies pain Ears, nose, mouth and throat: Denies headache, Denies sore throat Cardiovascular: Denies chest pain, Denies shortness of breath Respiratory: Denies cough Gastrointestinal: Denies abdominal pain, Denies diarrhea, Denies nausea, Denies vomiting Genitourinary: Denies dysuria, Denies hematuria Musculoskeletal: Denies myalgias Integumentary: Denies pruritus, Denies rash Neurological: Reports headaches, Reports migraines, Denies motor disturbance, Denies numbness, Denies weakness Psychiatric: Denies anxiety, Denies depression Endocrine: Denies fatigue, Denies weight change Past Medical History Past Medical History: COPD, Diabetes Mellitus, Deep Vein Thrombosis (DVT), Fibromyalgia, Hyperlipidemia, Hypertension, Osteoarthritis (OA), Pneumonia, Renal Disease, Sleep Apnea/CPAP/BIPAP, Vascular Disorder Additional Past Medical History / Comment(s): bronchitis, Cpap, UTIs, UTI with sepsis, pyelonephritis/sepsis, nephrolithiasis and has had renal failure d/t blockages, adrenal insufficiency, hyperparathyroidism-recently saw specialist an d will have surgery once her health improves, arthritis in multiple joints, DJD, past bilateral pelvic fractures, 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, R wrist/elbow nerve repair, bone removed R shoulder, 4th toe R foot partial amputation, bilateral feet/bunionectomies, R knee arthroscopies, R orbit decompression with ethmoidectomy and eyelid lift, EGD, colonoscopies, cystocop ies, lithotripsy/stents, total hysterectomy, bilateral breast reduction, bilateral cataract removals.Parathyroid surgery - April 2019, pain clinic procedures Past Anesthesia/Blood Transfusion Reactions: No Reported Reaction Additional Past Anesthesia/Blood Transfusion Reaction / Comment(s): never recieved blood Past Psychological History: No Psychological Hx Reported Additional Psychological History / Comment(s): Pt resides with her spouse. She uses a walker if out shopping. She drives. She has a nebulizer, cpap, bsc, shower chair, bp machine, dexcom monitor system for her bs. Smoking Status: Never smoker Past Alcohol Use History: Occasional Additional Past Alcohol Use History / Comment(s): no alcohol Past Drug Use History: None Reported - Past Family History Father Family Medical History: Coronary Artery Disease (CAD), CVA/TIA, Diabetes Mellitus, Myocardial Infarction ([place]), Pneumonia Additional Family Medical History / Comment(s): Father at the age of 78yrs from [place] and pneumonia. Mother Family Medical History: Cancer Additional Family Medical History / Comment(s): Mother had uterine cancer. She recently at the age of 96yrs old. Medications and Allergies Home Medications Medication Instructions Recorded Confirmed Type Cholecalciferol [Vitamin D3 (25 3,000 unit PO DAILY@0700 12/01/15 09/19/19 History Mcg = 1000 Iu)] Ondansetron [Zofran] 4 mg PO BID PRN 10/12/15 09/19/19 History Metoprolol Succinate (ER) [Toprol 50 mg PO HS 07/06/17 09/19/19 History XL] Meclizine [Antivert] 25 mg PO QID PRN 11/26/17 09/19/19 History Hydrocortisone [Cortef] 15 mg PO AC-BRKFST 05/18/18 09/19/19 History Hydrocortisone [Cortef] 5 mg PO HS 06/26/18 09/19/19 History Aspirin 81 mg PO DAILY #0 07/02/18 09/19/19 Rx Glucagon Emergency Kit 1 mg IM ONCE PRN 08/12/18 09/19/19 History Cranberry 300mg 300 mg PO BID 10/08/18 09/19/19 History Ferrous Sulfate [Iron (65 MG 325 mg PO DAILY 10/08/18 09/19/19 History Elemental)] Folic Acid 0.4 mg PO DAILY 10/08/18 09/19/19 History L.acidoph,Paracasei, B.lactis 2 cap PO BID 10/08/18 09/19/19 History [Probiotic] Melatonin 5 mg PO HS PRN 10/08/18 09/19/19 History Multivitamins, Thera Liquid 30 ml PO DAILY 10/08/18 09/19/19 History [Theragran Liquid (formulary)] Potassium 99 mg PO DAILY 10/08/18 09/19/19 History Thiamine [Vitamin B-1] 100 mg PO DAILY 10/08/18 09/19/19 History Vitamin B-Complex Drops 1 drop PO BID 10/08/18 09/19/19 History Lisinopril [Zestril] 15 mg PO QAM 11/08/18 09/19/19 History Atorvastatin [Lipitor] 40 mg PO HS #30 tab 11/16/18 09/19/19 Rx HYDROcodone/APAP 10-325MG [[place] 1 tab PO TID PRN 12/26/18 09/19/19 History 10-325] Insulin Aspart [NovoLOG Flexpen] 15 unit SQ AC-BRKFST 01/29/19 09/19/19 History Insulin Aspart [NovoLOG Flexpen] 18 units SQ AC-LUNCH 01/29/19 09/19/19 History Insulin Aspart [NovoLOG Flexpen] 22 units SQ AC-SUPPER 01/29/19 09/19/19 History Insulin Glargine [Lantus] 26 unit SQ HS 01/29/19 09/19/19 History Pantoprazole [Protonix] 40 mg PO DAILY 01/29/19 09/19/19 History Venlafaxine HCl [Effexor] 75 mg PO DAILY 03/12/19 09/19/19 History Hydrocortisone [Cortef] 10 mg PO AC-LUNCH 08/30/19 09/19/19 History Brimonidine Tartrate [Alphagan P 1 drops RIGHT EYE BID 08/31/19 09/19/19 History 0.2% Ophth Soln] Acetaminophen [Tylenol Extra 1,000 mg PO DAILY PRN 09/12/19 09/19/19 History Strength] Prochlorperazine [Compazine] 10 mg PO BID PRN #20 tab 09/14/19 09/19/19 Rx Magnesium Oxide [Mag-Ox] 400 mg PO BID #1 tab 09/16/19 09/19/19 Rx Gabapentin [Neurontin] 200 mg PO BID 09/19/19 09/19/19 History Allergies Allergy/AdvReac Type Severity Reaction Status Date / Time butorphanol tartrate Allergy BLISTERS Verified 09/19/19 07:40 [From Stadol] IN MOUTH ceftriaxone [From Rocephin] Allergy Unknown Verified 09/19/19 07:40 clarithromycin [From Biaxin] Allergy Rash/Hives Verified 09/19/19 07:40 codeine Allergy Rash/Hives Verified 09/19/19 07:40 ergotamine tartrate Allergy Unknown Verified 09/19/19 07:40 [From Cafergot] erythromycin base Allergy RASH, GI Verified 09/19/19 07:40 [From E-Mycin] SYMPTOMS ketorolac tromethamine Allergy Rash/Hives Verified 09/19/19 07:40 [From Toradol] liraglutide [From Victoza] Allergy Rash/Hives Verified 09/19/19 07:40 morphine Allergy Rash/Hives Verified 09/19/19 07:40 Penicillins Allergy Rash/Hives Verified 09/19/19 07:40 pentazocine lactate Allergy SEVERE Verified 09/19/19 07:40 [From Talwin] BLISTERS IN MOUTH pregabalin [From Lyrica] Allergy Rash/Hives Verified 09/19/19 07:40 propoxyphene HCl Allergy Rash/Hives Verified 09/19/19 07:40 [From Darvon] Sulfa (Sulfonamide Allergy Rash/Hives Verified 09/19/19 07:40 Antibiotics) tramadol Allergy Unknown Verified 09/19/19 07:40 monosodium glutamate [MSG] AdvReac Nausea & Verified 09/19/19 07:40 Vomiting nalbuphine HCl [From Nubain] AdvReac Nausea & Verified 09/19/19 07:40 Vomiting Physical Exam Vitals: Vital Signs Temp Pulse Pulse Resp BP BP Pulse Ox 09/19/19 13:41 98.4 F 84 16 176/83 93 L 09/19/19 04:27 98.4 F 104 H 18 162/78 94 L 09/19/19 03:32 98.2 F 113 H 18 127/99 94 L 09/19/19 01:34 107 H 16 129/75 95 09/19/19 00:29 99 19 173/120 94 L 09/19/19 00:22 98.7 F 105 H 15 165/91 94 L 09/18/19 22:13 98.1 F 112 H 18 159/92 96 Intake and Output 09/19/19 09/19/19 09/19/19 06:59 14:59 22:59 Intake Total 4 750 Balance 4 750 Intake: Amount of Fluid Infused ( 4 ml) Oral 750 Other: # Voids 1 2 Weight 65.317 kg General: well nourished, well developed, NAD. Vitals reviewed Eyes: PERRL, EOMI, conjunctiva normal HENT: normocephalic, mucus membranes moist Neck: supple, no JVD Lungs: normal respiratory effort, no wheezes or rales CV: Regular rate and rhythm, no murmur. Peripheral pulses 2+ Abdomen: soft, nondistended, no organomegaly Lymph: no cervical or axillary LAD Skin: warm and dry. Neuro: A&Ox3, normal mood and affect Results CBC & Chem 7: 09/18/19 23:25 09/18/19 23:25 Labs: Abnormal Lab Results - Last 24 Hours (Table) 09/18/19 09/18/19 09/19/19 Range/Units 23:25 23:25 00:09 WBC 10.8 H (3.8-10.6) k/uL Neutrophils # 9.0 H (1.3-7.7) k/uL Sodium 133 L (137-145) mmol/L Glucose 332 H (74-99) mg/dL POC Glucose (mg/dL) (75-99) mg/dL Urine Glucose (UA) 4+ H (Negative) Urine Ketones 1+ H (Negative) 09/19/19 09/19/19 09/19/19 Range/Units 07:11 12:11 17:11 WBC (3.8-10.6) k/uL Neutrophils # (1.3-7.7) k/uL Sodium (137-145) mmol/L Glucose (74-99) mg/dL POC Glucose (mg/dL) 198 H 154 H 237 H (75-99) mg/dL Urine Glucose (UA) (Negative) Urine Ketones (Negative) 09/19/19 Range/Units 20:59 WBC (3.8-10.6) k/uL Neutrophils # (1.3-7.7) k/uL Sodium (137-145) mmol/L Glucose (74-99) mg/dL POC Glucose (mg/dL) 119 H (75-99) mg/dL Urine Glucose (UA) (Negative) Urine Ketones (Negative) Thrombosis Risk Factor Assmnt - Choose All That Apply Any of the Below Risk Factors Present?: Yes Each Factor Represents 1 point: Obesity (BMI >25) Other Risk Factors: Yes Each Risk Factor Represents 2 Points: Age 61-74 years Each Risk Factor Represents 3 Points: History of DVT/PE Other congenital or acquired thrombophilia - If yes, enter type in comment: No Thrombosis Risk Factor Assessment Total Risk Factor Score: 6 Thrombosis Risk Factor Assessment Level: High Risk Assessment and Plan (1) Status migrainosus Current Visit: Yes Status: Acute Code(s): G43.901 - MIGRAINE, UNSP, NOT INTRACTABLE, WITH STATUS MIGRAINOSUS SNOMED Code(s): 346011588 (2) Intractable headache Current Visit: Yes Status: Acute Code(s): R51 - HEADACHE SNOMED Code(s): 07097465 (3) Adrenal insufficiency Current Visit: No Status: Acute Code(s): E27.40 - UNSPECIFIED ADRENOCORTICAL INSUFFICIENCY SNOMED Code(s): 754051452 (4) At risk for readmission to hospital Current Visit: No Status: Acute Code(s): Z91.89 - OTH PERSONAL RISK FACTORS, NOT ELSEWHERE CLASSIFIED SNOMED Code(s): 0889625649016 (5) CAD (coronary artery disease) Current Visit: No Status: Acute Code(s): I25.10 - ATHSCL HEART DISEASE OF [place] CORONARY ARTERY W/O ANG PCTRS SNOMED Code(s): 08782320 (6) Migraine Current Visit: No Status: Acute Code(s): G43.909 - MIGRAINE, UNSP, NOT INTRACTABLE, WITHOUT STATUS MIGRAINOSUS SNOMED Code(s): 43093535 (7) DM type 2 (diabetes mellitus, type 2) Current Visit: No Status: Chronic Code(s): E11.9 - TYPE 2 DIABETES MELLITUS WITHOUT COMPLICATIONS SNOMED Code(s): 03119297 Plan: 1. Status migrainosus. Neurology consulted. She has failed topamax and elavil in the past, wishes to stop gabapentin due to side effects. Continue norco tid. Dilaudid 0.5 mg for breakthrough. Continue magnesium, tylenol. Imitrex and reglan prn. Zofran for nausea. Consider occipital nerve block 2. T2DM. Continue home basal insulin, accucheck, sliding scale 3. HTN. Continue lisinopril 4. GERD. Continue protonix
[2019-09-20] MEDS ORDERED: diphenhydrAMINE 50 MG/ML 1 ML VIAL IVP PRN
[2019-09-20] MEDS ORDERED: METHOCARBAMOL 500 MG TAB PO PRN
[2019-09-20 00:14] LABS: Glucose,Whole Blood 93 mg/dL (75-99)
[2019-09-20] MEDS: SODIUM CHLORIDE 0.9% 1,000 ML IV SCH ×2 (02:21→12:49)
[2019-09-20] MEDS: BUTALB/APAP/CAFF 50-325-40MG TAB PO PRN (02:28)
[2019-09-20] MEDS: ONDANSETRON 4 MG/2 ML VIAL IVP PRN (02:30)
[2019-09-20] MEDS: HYDROmorphone 0.5 MG/0.5 ML SYRINGE IVP PRN ×4 (04:17→22:07)
[2019-09-20 05:25] LABS: Glucose,Whole Blood 105 mg/dL (75-99)
[2019-09-20 07:06] LABS: Glucose,Whole Blood 165 mg/dL (75-99)
[2019-09-20] MEDS: MAGNESIUM OXIDE 400 MG TAB PO SCH ×3 (08:15→21:59)
[2019-09-20] MEDS: VENLAFAXINE HCL 75 MG TAB PO SCH (08:15)
[2019-09-20] MEDS: PANTOPRAZOLE 40 MG TABLET PO SCH (08:15)
[2019-09-20] MEDS: ASPIRIN 81 MG PO SCH (08:15)
[2019-09-20] MEDS: LISINOPRIL 5 MG TAB PO SCH (08:15)
[2019-09-20] MEDS: THIAMINE 100 MG TAB PO SCH (08:15)
[2019-09-20] MEDS: ACETAMINOPHEN TAB 325 MG TAB PO SCH ×3 (08:16→22:31)
[2019-09-20] MEDS: BRIMONIDINE TARTRATE 0.2% DROPS 5 ML BTL RIGHT EYE SCH ×2 (08:16→21:57)
[2019-09-20] MEDS: HYDROCORTISONE 10 MG TAB PO SCH ×3 (08:16→22:29)
[2019-09-20] MEDS: INSULIN ASPART (NovoLOG) 100 UNIT/ML VIAL SQ SCH ×4 (08:17→21:55)
[2019-09-20] MEDS: diphenhydrAMINE 50 MG/ML 1 ML VIAL IVP PRN (08:21)
[2019-09-20] MEDS ORDERED: LIDOCAINE 2% INJ 20 MG/ML (20 ML MDV) SQ STA (09:01)
[2019-09-20] MEDS ORDERED: BUPIVACAINE (PF) 0.5% 30 ML VIAL SQ STA (09:03)
[2019-09-20] MEDS ORDERED: methylPREDNISolone ACETATE 40 MG/ML 1 ML VIAL INTRAARTIC STA (09:04)
--- NOTE | 2019-09-20 10:52 | P.CNNES ---
History of Present Illness Consult date: 09/18/19 Reason for Consult: Intractable headache with vomiting. Chief complaint: Increasing headache and vomiting following head trauma (March 2019 Past Medical History Past Medical History: COPD, Diabetes Mellitus, Deep Vein Thrombosis (DVT), Fibromyalgia, Hyperlipidemia, Hypertension, Osteoarthritis (OA), Pneumonia, Renal Disease, Sleep Apnea/CPAP/BIPAP, Vascular Disorder Additional Past Medical History / Comment(s): bronchitis, Cpap, UTIs, UTI with sepsis, pyelonephritis/sepsis, nephrolithiasis and has had renal failure d/t blockages, adrenal insufficiency, hyperparathyroidism-recently saw specialist and will have surgery once her health improves, arthritis in multiple joints, DJD, past bilateral pelvic fractures, 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, R wrist/elbow nerve repair, bone removed R shoulder, 4th toe R foot partial amputation, bilateral feet/bunionectomies, R knee arthroscopies, R orbit decompression with ethmoidectomy and eyelid lift, EGD, colonoscopies, cystocopies, lithotripsy/stents, total hysterectomy, bilateral breast reduction, bilateral cataract removals.Parathyroid surgery - April 2019, pain clinic procedures Past Anesthesia/Blood Transfusion Reactions: No Reported Reaction Additional Past Anesthesia/Blood Transfusion Reaction / Comment(s): never recieved blood Past Psychological History: No Psychological Hx Reported Additional Psychological History / Comment(s): Pt resides with her spouse. She uses a walker if out shopping. She drives. She has a nebulizer, cpap, bsc, shower chair, bp machine, dexcom monitor system for her bs. Smoking Status: Never smoker Past Alcohol Use History: Occasional Additional Past Alcohol Use History / Comment(s): no alcohol Past Drug Use History: None Reported - Past Family History Father Family Medical History: Coronary Artery Disease (CAD), CVA/TIA, Diabetes Mellitus, Myocardial Infarction (MT), Pneumonia Additional Family Medical History / Comment(s): Father at the age of 78yrs from MT and pneumonia. Mother Family Medical History: Cancer Additional Family Medical History / Comment(s): Mother had uterine cancer. She recently at the age of 96yrs old. Medications and Allergies Home Medications Medication Instructions Recorded Confirmed Type Cholecalciferol [Vitamin D3 (25 3,000 unit PO DAILY@0700 12/01/14 09/19/19 History Mcg = 1000 Iu)] Ondansetron [Zofran] 4 mg PO BID PRN 10/12/15 09/19/19 History Metoprolol Succinate (ER) [Toprol 50 mg PO HS 07/06/17 09/19/19 History XL] Meclizine [Antivert] 25 mg PO QID PRN 11/26/17 09/19/19 History Hydrocortisone [Cortef] 15 mg PO AC-BRKFST 05/18/18 09/19/19 History Hydrocortisone [Cortef] 5 mg PO HS 06/26/18 09/19/19 History Aspirin 81 mg PO DAILY #0 07/02/18 09/19/19 Rx Glucagon Emergency Kit 1 mg IM ONCE PRN 08/12/18 09/19/19 History Cranberry 300mg 300 mg PO BID 10/08/18 09/19/19 History Ferrous Sulfate [Iron (65 MG 325 mg PO DAILY 10/08/18 09/19/19 History Elemental)] Folic Acid 0.4 mg PO DAILY 10/08/18 09/19/19 History L.acidoph,Paracasei, B.lactis 2 cap PO BID 10/08/18 09/19/19 History [Probiotic] Melatonin 5 mg PO HS PRN 10/08/18 09/19/19 History Multivitamins, Thera Liquid 30 ml PO DAILY 10/08/18 09/19/19 History [Theragran Liquid (formulary)] Potassium 99 mg PO DAILY 10/08/18 09/19/19 History Thiamine [Vitamin B-1] 100 mg PO DAILY 10/08/18 09/19/19 History Vitamin B-Complex Drops 1 drop PO BID 10/08/18 09/19/19 History Lisinopril [Zestril] 15 mg PO QAM 11/08/18 09/19/19 History Atorvastatin [Lipitor] 40 mg PO HS #30 tab 11/16/18 09/19/19 Rx HYDROcodone/APAP 10-325MG [[place] 1 tab PO TID PRN 12/26/18 09/19/19 History 10-325] Insulin Aspart [NovoLOG Flexpen] 15 unit SQ AC-BRKFST 01/29/19 09/19/19 History Insulin Aspart [NovoLOG Flexpen] 18 units SQ AC-LUNCH 01/29/19 09/19/19 History Insulin Aspart [NovoLOG Flexpen] 22 units SQ AC-SUPPER 01/29/19 09/19/19 History Insulin Glargine [Lantus] 26 unit SQ HS 01/29/19 09/19/19 History Pantoprazole [Protonix] 40 mg PO DAILY 01/29/19 09/19/19 History Venlafaxine HCl [Effexor] 75 mg PO DAILY 03/12/19 09/19/19 History Hydrocortisone [Cortef] 10 mg PO AC-LUNCH 08/30/19 09/19/19 History Brimonidine Tartrate [Alphagan P 1 drops RIGHT EYE BID 08/31/19 09/19/19 History 0.2% Ophth Soln] Acetaminophen [Tylenol Extra 1,000 mg PO DAILY PRN 09/12/19 09/19/19 History Strength] Prochlorperazine [Compazine] 10 mg PO BID PRN #20 tab 09/14/19 09/19/19 Rx Magnesium Oxide [Mag-Ox] 400 mg PO BID #1 tab 09/16/19 09/19/19 Rx Gabapentin [Neurontin] 200 mg PO BID 09/19/19 09/19/19 History Allergies Allergy/AdvReac Type Severity Reaction Status Date / Time butorphanol tartrate Allergy BLISTERS Verified 09/19/19 07:40 [From Stadol] IN MOUTH ceftriaxone [From Rocephin] Allergy Unknown Verified 09/19/19 07:40 clarithromycin [From Biaxin] Allergy Rash/Hives Verified 09/19/19 07:40 codeine Allergy Rash/Hives Verified 09/19/19 07:40 ergotamine tartrate Allergy Unknown Verified 09/19/19 07:40 [From Cafergot] erythromycin base Allergy RASH, GI Verified 09/19/19 07:40 [From E-Mycin] SYMPTOMS ketorolac tromethamine Allergy Rash/Hives Verified 09/19/19 07:40 [From Toradol] liraglutide [From Victoza] Allergy Rash/Hives Verified 09/19/19 07:40 morphine Allergy Rash/Hives Verified 09/19/19 07:40 Penicillins Allergy Rash/Hives Verified 09/19/19 07:40 pentazocine lactate Allergy SEVERE Verified 09/19/19 07:40 [From Talwin] BLISTERS IN MOUTH pregabalin [From Lyrica] Allergy Rash/Hives Verified 09/19/19 07:40 propoxyphene HCl Allergy Rash/Hives Verified 09/19/19 07:40 [From Darvon] Sulfa (Sulfonamide Allergy Rash/Hives Verified 09/19/19 07:40 Antibiotics) tramadol Allergy Unknown Verified 09/19/19 07:40 monosodium glutamate [MSG] AdvReac Nausea & Verified 09/19/19 07:40 Vomiting nalbuphine HCl [From Nubain] AdvReac Nausea & Verified 09/19/19 07:40 Vomiting Physical Examination - Vital Signs Vital Signs: Vital Signs Temp Pulse Pulse Resp BP BP Pulse Ox 09/19/19 04:27 98.4 F 104 H 18 162/78 94 L 09/19/19 03:32 98.2 F 113 H 18 127/99 94 L 09/19/19 01:34 107 H 16 129/75 95 09/19/19 00:29 99 19 173/120 94 L 09/19/19 00:22 98.7 F 105 H 15 165/91 94 L 09/18/19 22:13 98.1 F 112 H 18 159/92 96 Intake and Output 09/18/19 09/19/19 09/19/19 22:59 06:59 14:59 Intake Total 4 Balance 4 Intake: Amount of Fluid Infused ( 4 ml) Other: # Voids 1 Weight 65.317 kg 65.317 kg GENERAL EXAM APPEARANCE: HENT: PULSES: EXTREMITIES: SKIN: Neurological exam Mental status: Cranial nerve examination: Visual field exam: Pupils: Motor examination: Deep tendon reflexes: Sensory exam: Gait exam: Results - Laboratory Findings CBC and BMP: 09/18/19 23:25 09/18/19 23:25 Abnormal Lab Findings: Abnormal Labs 09/18/19 09/18/19 09/19/19 23:25 23:25 00:09 WBC 10.8 H Neutrophils # 9.0 H Sodium 133 L Glucose 332 H POC Glucose (mg/dL) Urine Glucose (UA) 4+ H Urine Ketones 1+ H 09/19/19 09/19/19 07:11 12:11 WBC Neutrophils # Sodium Glucose POC Glucose (mg/dL) 198 H 154 H Urine Glucose (UA) Urine Ketones Assessment and Plan Assessment: This is a neurology consult requested for further advice and recommendations for 6-year-old female who is readmitted for intractable headache. Patient was initially seen on Monday as a consult with an MRI of the C-spine recommended. Prior to me being able to review that MRI with her she was discharged. She returned again due to worsening headache and vomiting. MRI of the C-spine did show evidence of C3-C4 facet arthropathy with mild right neuroforaminal narrowing. C4 C7 disc space narrowing with disc desiccation, disc osteophyte complex formation. Evidence of scoliosis. C4-C5 complex involving severe right neuroforaminal stenosis. Tonsillar hypertrophy. The patient returned back last evening to the emergency room with increased vomiting nausea and headache that is reported as bifrontal. This patient does have a prior history of migraine but migraine headaches occurred back in her mid 20s after delivery of her first child. She suffered from classical migraines for about 15-20 years but then all of this subsided after menopause. She reports that this headache began approximate several months after she sustained a closed head injury involving the right temporal lobe. She does not recall having a loss of consciousness during that event but within a month, 6-4 weeks she began having headaches. These headaches are not at all like her migraine headaches. I have reviewed her CT report on the initial admission. There is only report of a old right lacunar infarct. Today I'll review the actual images of that CT and there is concern of possibly a structural mass lesion involving the left parietal lobe it is only seen on one image does this needs to be further verified. Today's neurological exam initially began with severe vomiting and nausea. The exam was deferred until she returns back from the MRI scanner. The current neuro exam after she is now received Dilantin and Zofran is as follows. Summary: 1. Intractable headache associated with severe nausea and vomiting. This headache began approximately 4-6 weeks after sustained closed head injury. 2. Questionable structural mass lesion on computed tomography scan of the head. 3. Abnormal MRI of the C-spine involving the cervical neck disease. 4. Tonsillar hypertrophy noted in the 69-year-old on MRI C-spine. Plan 1. Administer 0.5 mg of Dilaudid now IV along with 4 mg of Zofran for pain management. Zofran can be given up to 8 mg every 6 hours when necessary nausea. 2. Stat MRI of the brain with and without contrast to further rule out structural mass lesion. See image [id number] on computed tomography scan from 08/30/2019. 3. Neuro checks every 2 hours while awake per nursing protocol. 4. Gentle hydration with normal saline 90 mL per hour give 1 L. 5. Strict control of glucose maintaining normoglycemic levels. 6. The pressure management: Maintain systolic blood pressure between 120-130 diastolic blood pressures between 80-90. This patient's prognosis remains guarded. Further recommendations were made as this case evolves. Please note that neurology will not be available on site this Monday and Monday. Alison Cravajal MD Board Certified in Neurology & Sleep Medicine
[2019-09-20 12:09] LABS: Glucose,Whole Blood 172 mg/dL (75-99)
[2019-09-20 17:18] LABS: Glucose,Whole Blood 233 mg/dL (75-99)
--- NOTE | 2019-09-20 17:39 | P.PN ---
Subjective Progress Note Date: 09/20/19 Melissa Pena is a 69 yo F with PMH of severe migraine headaches, recently admitted for the same and last discharged just 3 days ago. She states that after she left the hospital her headaches were almost completely resolved but then came back at home. She tried taking tylenol, magnesium, and reglan at home but it did not help. She endorses photophobia. Denies ear pain or pressure, dizziness, sinus pressure, fever, chills, cough. She does feel her headaches have been much worse over the past month or so ever since she had a fall and has been hard to get back to her previous baseline. She last had occipital nerve blocks about 2 months ago which were very helpful. In the ED her vitals and labs were unremarkable with the exception of glucose 330. MRI brain was performed which was negative for acute process and shows chronic white matter changes associated with migraine. 09/20/2019 complains of difficulty sleeping related to unrelieved headaches. attempted Robaxin, fioricet, Benadryl, Zofran last night with short lived improvement. Reports minimal intake yesterday secondary to significant nausea Recently received Benadryl, Tylenol magnesium. Patient consented to bedside bilateral occipital nerve block by Dr. Andrew Gonsales. Tolerated well. Denies chest pain, palpitations or shortness of breath. Objective - Vital Signs Vital signs: Vital Signs Temp 99.0 F 09/20/19 13:39 Pulse 86 09/20/19 13:39 Resp 18 09/20/19 13:39 BP 138/69 09/20/19 13:39 Pulse Ox 96 09/20/19 13:39 Intake & Output 09/19/19 09/20/19 09/20/19 18:59 06:59 18:59 Intake Total 750 1300 Balance 750 1300 Intake: IV 600 Sodium Chloride 0.9% 1, 600 000 ml @ 75 mls/hr IV . [id number] [facility]ARA Rx#:[id number] Oral 750 700 Other: Voiding Method Toilet # Voids 2 3 2 # Bowel Movements 2 - Exam General: well nourished, well developed, NAD. Vitals reviewed Eyes: PERRL, EOMI, conjunctiva normal HENT: normocephalic, mucus membranes moist Neck: supple, no JVD Lungs: normal respiratory effort, no wheezes or rales CV: Regular rate and rhythm, no murmur. Peripheral pulses 2+ Abdomen: soft, nondistended, no organomegaly Lymph: no cervical or axillary LAD Skin: warm and dry. Neuro: A&Ox3, normal mood and affect - Labs CBC & Chem 7: 09/18/19 23:25 09/18/19 23:25 Labs: Abnormal Lab Results - Last 24 Hours (Table) 09/19/19 09/19/19 09/20/19 Range/Units 17:11 20:59 05:23 POC Glucose (mg/dL) 237 H 119 H 105 H (75-99) mg/dL 09/20/19 09/20/19 Range/Units 07:03 12:07 POC Glucose (mg/dL) 165 H 172 H (75-99) mg/dL Assessment and Plan Assessment: (1) Status migrainosus Current Visit: Yes Status: Acute Code(s): G43.901 - MIGRAINE, UNSP, NOT INTRACTABLE, WITH STATUS MIGRAINOSUS SNOMED Code(s): 187411988 (2) Intractable headache, status post bilateral occipital nerve block Current Visit: Yes Status: Acute Code(s): R51 - HEADACHE SNOMED Code(s): 07341621 (3) Adrenal insufficiency Current Visit: No Status: Acute Code(s): E27.40 - UNSPECIFIED ADRENOCORTICAL INSUFFICIENCY SNOMED Code(s): 708935707 (4) At risk for readmission to hospital Current Visit: No Status: Acute Code(s): Z91.89 - OTH PERSONAL RISK FACTORS, NOT ELSEWHERE CLASSIFIED SNOMED Code(s): 5352963869418 (5) CAD (coronary artery disease) Current Visit: No Status: Acute Code(s): I25.10 - ATHSCL HEART DISEASE OF [place] CORONARY ARTERY W/O ANG PCTRS SNOMED Code(s): 27145600 (6) Migraine Current Visit: No Status: Acute Code(s): G43.909 - MIGRAINE, UNSP, NOT INTRACTABLE, WITHOUT STATUS MIGRAINOSUS SNOMED Code(s): 28814565 (7) DM type 2 (diabetes mellitus, type 2) Current Visit: No Status: Chronic Code(s): E11.9 - TYPE 2 DIABETES MELLITUS WITHOUT COMPLICATIONS SNOMED Code(s): 63427965 Plan: Continue on current medication regime ,monitoring and symptomatic treatmen t. Gentle IV fluid hydration. Currently maintain Zofran, Reglan, Magnesium, tylenol,[place], Dilaudid for breakthrough pain. Follow closely with neurology. Prognosis remains guarded given multiple complex medical issues. The impression and plan of care has been dictated as directed. : I performed a history and examination of this patient, discussed the same with the dictator. I agree with the dictator's note ,documented as a scribe. Any additional findings or plans will be noted.
[2019-09-20 20:03] LABS: Glucose,Whole Blood 269 mg/dL (75-99)
[2019-09-20] MEDS: ATORVASTATIN 40 MG TAB PO SCH (21:57)
[2019-09-20] MEDS: METOPROLOL SUCCINATE (ER) 50 MG TAB.ER.24H PO SCH (21:59)
[2019-09-20] MEDS: INSULIN DETEMIR (LEVEMIR) 100 UNIT/ML SYR SQ SCH (22:29)
--- NOTE | 2019-09-20 23:22 | P.PN ---
Subjective Progress Note Date: 09/20/19 Intractable headache Subjective: Patient required migraine cocktail overnight. She was complaining of still generalized headache pain and some pain over the eyes. The patient was given a combination of Robaxin for muscle relaxation Benadryl and Fioricet. The patient reports that this did bring the headache down considerably but not completely resolved. The patient has undergone an occipital nerve block today which she believes has helped significantly. She still however for reasons unclear believing that she needs dialyzed. There is concern that this patient may be at increased risk for opioid addiction. The patient denies feeling any nausea today change in vision or sensorimotor changes. She denies having any difficulty swallowing. Objective - Vital Signs Vital signs: Vital Signs Temp 98.3 F 09/20/19 21:00 Pulse 90 09/20/19 21:00 Resp 18 09/20/19 21:00 BP 157/76 09/20/19 21:00 Pulse Ox 95 09/20/19 21:00 Intake & Output 09/20/19 09/20/19 09/21/19 06:59 18:59 06:59 Intake Total 1300 350 Balance 1300 350 Intake: IV 600 Sodium Chloride 0.9% 1, 600 000 ml @ 75 mls/hr IV . [id number] [facility]ARA Rx#:[id number] Oral 700 350 Other: Voiding Method Toilet # Voids 3 2 2 # Bowel Movements 2 - Exam Patient was examined and chart reviewed. MRI of the brain was reviewed there is no evidence of any acute ischemic infarct or hemorrhagic infarct nor structural mass lesion. The MRI of the cervical spin e does show evidence of cervical neck disease. A neuro exam was deferred due to the patient just having received a occipital nerve block and wishing to remain still and not move. Overall her mentation appears normal she is alert oriented speech is fluent. The patient can move all 4 extremities equally. There is no facial weakness noted or difficulty swallowing. Gait examination formal sensory and coordination testing deferred. - Labs CBC & Chem 7: 09/18/19 23:25 09/18/19 23:25 Labs: Abnormal Lab Results - Last 24 Hours (Table) 09/20/19 09/20/19 09/20/19 Range/Units 05:23 07:03 12:07 POC Glucose (mg/dL) 105 H 165 H 172 H (75-99) mg/dL 09/20/19 09/20/19 Range/Units 17:16 19:50 POC Glucose (mg/dL) 233 H 269 H (75-99) mg/dL Assessment and Plan Assessment: 69-year-old female with diabetes, kidney disease, history of migraines earlier 20s and 30s and now reprocessing with a different headache morphology in her 70s. This patient's headaches could be multifactorial. The patient does seem to have an extensive amount of neck if involvement with her headaches. Cervical nerve block at the present time appears to be having some impact. Time will tell if this is more of cervicogenic disease. This patient should undergo physical therapy for her neck at least for 6 weeks and then be reevaluated. This patient could benefit from minimally invasive decompressive surgery if physical therapy does not bring about the need of improvement. Other potential differential diagnosis for these headaches include the followin. Benign increased intracranial pressure. Due to the patient's obesity she could be at increased risk for benign increased intracranial pressure. If she does not receive benefit with the occipital nerve block this should be considered and the patient should be scheduled for an outpatient lumbar puncture with opening and closing measurements. This diagnosis is important to rule out as prolonged increased intracranial pressure can result in optic nerve damage leading to blindness. A referral to an lab director as an outpatient would also be important to see if there is any early changes in the optic nerves occurring. 2. Cluster headaches: A trial on high flow oxygen can also be beneficial way of ruling out this world with headache. 3. Paroxysmal hemicrania and/or hemicranium continuum. This headache occurs often women and occurs often side locked as a pounding throbbing pain that can last for days and occur continuously or intermittently. This is a migraine headache of exclusion as a response to indomethacin. Recommendations 1. Patient can be cleared by neurology to be discharged home and follow-up with neurologist in the community who specialize in sent headaches. 2. Patient should be evaluated for obstructive sleep apnea. With her use of narcotics this places her at increased risk for complex sleep apnea 3. Patient may also be a candidate for Botox therapy applied to trigger point in the posterior neck region and forehead. Thank you for this consultation. Please note that only [facility] neurology is available for Monday. An on-site neurologist will be available on September 22.
[2019-09-21] MEDS: SODIUM CHLORIDE 0.9% 1,000 ML IV SCH ×2 (03:30→16:45)
[2019-09-21] MEDS: HYDROmorphone 0.5 MG/0.5 ML SYRINGE IVP PRN ×4 (03:35→21:19)
[2019-09-21 07:14] LABS: Glucose,Whole Blood 216 mg/dL (75-99)
[2019-09-21] MEDS: INSULIN ASPART (NovoLOG) 100 UNIT/ML VIAL SQ SCH ×4 (07:36→21:25)
[2019-09-21] MEDS: PANTOPRAZOLE 40 MG TABLET PO SCH (07:41)
[2019-09-21] MEDS: HYDROCORTISONE 10 MG TAB PO SCH ×2 (07:41→12:27)
[2019-09-21] MEDS: ACETAMINOPHEN TAB 325 MG TAB PO SCH ×3 (08:57→21:23)
[2019-09-21] MEDS: ASPIRIN 81 MG PO SCH (08:58)
[2019-09-21] MEDS: LISINOPRIL 5 MG TAB PO SCH (08:58)
[2019-09-21] MEDS: THIAMINE 100 MG TAB PO SCH (08:58)
[2019-09-21] MEDS: MAGNESIUM OXIDE 400 MG TAB PO SCH ×3 (08:58→21:23)
[2019-09-21] MEDS: VENLAFAXINE HCL 75 MG TAB PO SCH (08:58)
[2019-09-21] MEDS: BRIMONIDINE TARTRATE 0.2% DROPS 5 ML BTL RIGHT EYE SCH ×2 (09:27→21:31)
[2019-09-21 11:30] LABS: Glucose,Whole Blood 213 mg/dL (75-99)
[2019-09-21 16:51] LABS: Glucose,Whole Blood 244 mg/dL (75-99)
[2019-09-21 19:49] LABS: Glucose,Whole Blood 248 mg/dL (75-99)
[2019-09-21] MEDS: METOPROLOL SUCCINATE (ER) 50 MG TAB.ER.24H PO SCH (21:23)
[2019-09-21] MEDS: INSULIN DETEMIR (LEVEMIR) 100 UNIT/ML SYR SQ SCH (21:27)
[2019-09-21] MEDS: ATORVASTATIN 40 MG TAB PO SCH (21:31)
[2019-09-22] MEDS: HYDROCORTISONE 10 MG TAB PO SCH ×4 (00:13→21:20)
[2019-09-22] MEDS: HYDROmorphone 0.5 MG/0.5 ML SYRINGE IVP PRN ×4 (03:11→21:22)
[2019-09-22] MEDS: SODIUM CHLORIDE 0.9% 1,000 ML IV SCH ×2 (06:18→23:27)
[2019-09-22 07:03] LABS: Glucose,Whole Blood 87 mg/dL (75-99)
[2019-09-22] MEDS: INSULIN ASPART (NovoLOG) 100 UNIT/ML VIAL SQ SCH ×4 (08:03→21:19)
[2019-09-22] MEDS: ACETAMINOPHEN TAB 325 MG TAB PO SCH ×3 (08:55→21:21)
[2019-09-22] MEDS: BRIMONIDINE TARTRATE 0.2% DROPS 5 ML BTL RIGHT EYE SCH ×2 (08:55→21:21)
[2019-09-22] MEDS: MAGNESIUM OXIDE 400 MG TAB PO SCH ×3 (08:55→21:20)
[2019-09-22] MEDS: THIAMINE 100 MG TAB PO SCH (08:56)
[2019-09-22] MEDS: PANTOPRAZOLE 40 MG TABLET PO SCH (08:56)
[2019-09-22] MEDS: ASPIRIN 81 MG PO SCH (08:56)
[2019-09-22] MEDS: VENLAFAXINE HCL 75 MG TAB PO SCH (08:56)
[2019-09-22] MEDS: LISINOPRIL 5 MG TAB PO SCH (08:56)
[2019-09-22] MEDS: ONDANSETRON 4 MG/2 ML VIAL IVP PRN (10:54)
[2019-09-22 11:48] LABS: Glucose,Whole Blood 161 mg/dL (75-99)
--- NOTE | 2019-09-22 13:45 | P.PN ---
Subjective Progress Note Date: 09/21/19 Principal diagnosis: Intractable headache; differential including migraine headaches, benign increased intracranial pressure, cluster headaches, paroxysmal hemicrania/hemicranium continuum versus other 69-year-old female patient admitted to the hospital with intractable headache; patient has been seen by neurology and different pain medication combinations have been tried 09/22/2019 Patient is seen and evaluated in room at bedside; patient continues to complain of episodes of severe headache; patient reports that she was told by her primary care physician, Dr. Gonsales, that she will stay in the hospital till Monday, to be evaluated with neurology Neurology has seen patient and has recommended follow-up with primary neurologist; patient is also recommended to be evaluated for obstructive sleep apnea; patient might be a candidate for Botox therapy as an outpatient We will continue with current medications with possible reevaluation by neurolo gy and PCP Dr. Gonsales for possible discharge tomorrow Objective - Vital Signs Vital signs: Vital Signs Temp 98.0 F 09/22/19 05:00 Pulse 56 L 09/22/19 05:00 Resp 18 09/22/19 05:00 BP 167/79 09/22/19 05:00 Pulse Ox 94 L 09/22/19 05:00 Intake & Output 09/21/19 09/22/19 09/22/19 18:59 06:59 18:59 Intake Total 540 525 600 Balance 540 525 600 Intake: IV 600 Sodium Chloride 0.9% 1, 600 000 ml @ 75 mls/hr IV . [id number] K[facility]ARA Rx#:[id number] Oral 540 525 Other: # Voids 2 2 - Exam General: well nourished, well developed, NAD. Vitals reviewed Eyes: PERRL, EOMI, conjunctiva normal HENT: normocephalic, mucus membranes moist Neck: supple, no JVD Lungs: normal respiratory effort, no wheezes or rales CV: Regular rate and rhythm, no murmur. Peripheral pulses 2+ Abdomen: soft, nondistended, no organomegaly Lymph: no cervical or axillary LAD Skin: warm and dry. Neuro: A&Ox3, normal mood and affect - Labs CBC & Chem 7: 09/18/19 23:25 09/18/19 23:25 Labs: Abnormal Lab Results - Last 24 Hours (Table) 09/21/19 09/21/19 09/22/19 Range/Units 16:49 19:46 11:47 POC Glucose (mg/dL) 244 H 248 H 161 H (75-99) mg/dL Assessment and Plan Assessment: 1. Intractable headache Differential includes; status migrainosus versus benign increased intracranial pressure versus cluster headaches versus paroxysmal hemicrania/hemicranium continuum Patient is status post bilateral occipital nerve Patient has been cleared by neurology to be discharged home and follow-up with neurologist in the community who specialize in sent headaches. Patient should be evaluated for obstructive sleep apnea. With her use of narcotics this places her at increased risk for complex sleep apnea Patient may also be a candidate for Botox therapy applied to trigger point in the posterior neck region and forehead. 2. Diabetes mellitus type 2; blood sugars remained stable; patient remains on Levemir 26 units subcu daily at bedtime; will continue to monitor Accu-Cheks before meals and at bedtime with insulin sliding scale 3. Adrenal insufficiency; remains on Solu-Cortef 15 mg before breakfast and 10 mg before lunch 4. Hypertension; lisinopril 15 mg by mouth daily along with metoprolol 50 mg by mouth daily at bedtime 6. Hyperlipidemia; Lipitor 40 mg by mouth daily at bedtime DVT prophylaxis; SCDs CODE STATUS; full code Time with Patient: Greater than 30
[2019-09-22 16:53] LABS: Glucose,Whole Blood 204 mg/dL (75-99)
[2019-09-22 20:37] LABS: Glucose,Whole Blood 253 mg/dL (75-99)
[2019-09-22] MEDS: INSULIN DETEMIR (LEVEMIR) 100 UNIT/ML SYR SQ SCH (21:19)
[2019-09-22] MEDS: ATORVASTATIN 40 MG TAB PO SCH (21:20)
[2019-09-22] MEDS: METOPROLOL SUCCINATE (ER) 50 MG TAB.ER.24H PO SCH (21:20)
[2019-09-23] MEDS: HYDROmorphone 0.5 MG/0.5 ML SYRINGE IVP PRN ×3 (03:11→18:09)
[2019-09-23] MEDS: ONDANSETRON 4 MG/2 ML VIAL IVP PRN (06:20)
[2019-09-23 06:56] LABS: Glucose,Whole Blood 109 mg/dL (75-99)
[2019-09-23] MEDS: INSULIN ASPART (NovoLOG) 100 UNIT/ML VIAL SQ SCH ×4 (07:47→21:35)
[2019-09-23] MEDS: ASPIRIN 81 MG PO SCH (07:51)
[2019-09-23] MEDS: PANTOPRAZOLE 40 MG TABLET PO SCH (07:51)
[2019-09-23] MEDS: VENLAFAXINE HCL 75 MG TAB PO SCH (07:51)
[2019-09-23] MEDS: ACETAMINOPHEN TAB 325 MG TAB PO SCH (07:51)
[2019-09-23] MEDS: LISINOPRIL 5 MG TAB PO SCH (07:51)
[2019-09-23] MEDS: MAGNESIUM OXIDE 400 MG TAB PO SCH ×3 (07:51→21:36)
[2019-09-23] MEDS: THIAMINE 100 MG TAB PO SCH (07:51)
[2019-09-23] MEDS: HYDROCORTISONE 10 MG TAB PO SCH ×2 (07:52→11:51)
[2019-09-23] MEDS: BRIMONIDINE TARTRATE 0.2% DROPS 5 ML BTL RIGHT EYE SCH ×2 (07:53→21:37)
[2019-09-23] MEDS: SODIUM CHLORIDE 0.9% 1,000 ML IV SCH (07:53)
[2019-09-23 08:36] LABS: African American GFR (CKD) >90 (>60 ml/min/1.73 sqM); Anion Gap 7 mmol/L; Blood Urea Nitrogen 11 mg/dL (7-17); Calcium 8.4 mg/dL (8.4-10.2); Carbon Dioxide 27 mmol/L (22-30); Chloride 104 mmol/L (98-107); Glucose 97 mg/dL (74-99); Non-African American GFR(CKD) >90 (>60 ml/min/1.73 sqM); Potassium 3.8 mmol/L (3.5-5.1); Sodium 138 mmol/L (137-145)
[2019-09-23] MEDS ORDERED: ACETAMINOPHEN TAB 500 MG TAB PO STA (09:08)
[2019-09-23] MEDS ORDERED: diphenhydrAMINE 25 MG CAP PO STA (09:09)
[2019-09-23] MEDS ORDERED: MAGNESIUM SULFATE-D5W PMX 1 GM in DEXTROSE/WATER 1 100ML.BAG IVPB ONE (09:09)
[2019-09-23] MEDS: HYDROcodone/APAP 10-325MG 1 EACH TAB PO SCH ×3 (09:52→21:35)
[2019-09-23 11:27] LABS: Glucose,Whole Blood 132 mg/dL (75-99)
[2019-09-23 16:53] LABS: Glucose,Whole Blood 262 mg/dL (75-99)
--- NOTE | 2019-09-23 17:19 | P.PN ---
Subjective Progress Note Date: 09/23/19 Melissa Pena is a 69 yo F with PMH of severe migraine headaches, recently admitted for the same and last discharged just 3 days ago. She states that after she left the hospital her headaches were almost completely resolved but then came back at home. She tried taking tylenol, magnesium, and reglan at home but it did not help. She endorses photophobia. Denies ear pain or pressure, dizziness, sinus pressure, fever, chills, cough. She does feel her headaches have been much worse over the past month or so ever since she had a fall and has been hard to get back to her previous baseline. She last had occipital nerve blocks about 2 months ago which were very helpful. In the ED her vitals and labs were unremarkable with the exception of glucose 330. MRI brain was performed which was negative for acute process and shows chronic white matter changes associated with migraine. 09/20/2019 complains of difficulty sleeping related to unrelieved headaches. attempted Robaxin, fioricet, Benadryl, Zofran last night with short lived improvement. Reports minimal intake yesterday secondary to significant nausea Recently received Benadryl, Tylenol magnesium. Patient consented to bedside bilateral occipital nerve block by Dr. Andrew Gonsales. Tolerated well. Denies chest pain, palpitations or shortness of breath. 09/23/2019 persistent headache, rating it "8 out of 10". Good diet intake, consuming 75-100%. No nausea vomiting or diarrhea. Denies chest pain, palpitations or shortness of breath. Objective - Vital Signs Vital signs: Vital Signs Temp 98.0 F 09/23/19 13:37 Pulse 73 09/23/19 13:37 Resp 16 09/23/19 13:37 BP 168/81 09/23/19 13:37 Pulse Ox 95 09/23/19 13:37 Intake & Output 09/22/19 09/23/19 09/23/19 18:59 06:59 18:59 Intake Total 600 300 700 Balance 600 300 700 Intake: IV 600 700 Magnesium Sulfate-D5w Pmx 100 1 gm In Dextrose/Water 1 100ml.bag @ 100 mls/hr IVPB ONCE ONE Rx#: [id number] Sodium Chloride 0.9% 1, 600 600 000 ml @ 75 mls/hr IV . [id number] [facility] Rx#:[id number] Oral 300 Other: Voiding Method Toilet # Voids 2 - Exam General: Alert and oriented 3, NAD. Eyes: PERRL, EOMI, conjunctiva normal HENT: normocephalic, mucus membranes moist Neck: supple, no JVD Lungs: normal respiratory effort, no rhonchi, wheezes or rales CV: Regular rate and rhythm, no murmur. Peripheral pulses 2+ Abdomen: soft, nondistended, no organomegaly Skin: warm and dry. Neuro: A&Ox3, normal mood and affect - Labs CBC & Chem 7: 09/18/19 23:25 09/23/19 07:05 Labs: Abnormal Lab Results - Last 24 Hours (Table) 09/22/19 09/23/19 09/23/19 Range/Units 20:35 06:54 11:25 POC Glucose (mg/dL) 253 H 109 H 132 H (75-99) mg/dL 09/23/19 Range/Units 16:49 POC Glucose (mg/dL) 262 H (75-99) mg/dL Assessment and Plan Assessment: (1) Status migrainosus Current Visit: Yes Status: Acute Code(s): G43.901 - MIGRAINE, UNSP, NOT INTRACTABLE, WITH STATUS MIGRAINOSUS SNOMED Code(s): 056803485 (2) Intractable headache, status post bilateral occipital nerve block Current Visit: Yes Status: Acute Code(s): R51 - HEADACHE SNOMED Code(s): 42265774 (3) Adrenal insufficiency Current Visit: No Status: Acute Code(s): E27.40 - UNSPECIFIED ADRENOCORTICAL INSUFFICIENCY SNOMED Code(s): 975129546 (4) At risk for readmission to hospital Current Visit: No Status: Acute Code(s): Z91.89 - OTH PERSONAL RISK FACTORS, NOT ELSEWHERE CLASSIFIED SNOMED Code(s): 0530713891623 (5) CAD (coronary artery disease) Current Visit: No Status: Acute Code(s): I25.10 - ATHSCL HEART DISEASE OF [place] CORONARY ARTERY W/O ANG PCTRS SNOMED Code(s): 64005681 (6) Migraine Current Visit: No Status: Acute Code(s): G43.909 - MIGRAINE, UNSP, NOT INTRACTABLE, WITHOUT STATUS MIGRAINOSUS SNOMED Code(s): 97028668 (7) DM type 2 (diabetes mellitus, type 2) Current Visit: No Status: Chronic Code(s): E11.9 - TYPE 2 DIABETES MELLITUS WITHOUT COMPLICATIONS SNOMED Code(s): 85762769 Plan: Continue on current medication regime ,monitoring and symptomatic treatment. Pain management. Gentle IV fluid hydration. Discussed Botox injections,giving her samples of aimovig in the office to try. Discharge planning in progress for tomorrow. The impression and plan of care has been dictated as directed. : I performed a history and examination of this patient, discussed the same with the dictator. I agree with the dictator's note ,documented as a scribe. Any additional findings or plans will be noted.
[2019-09-23 20:49] LABS: Glucose,Whole Blood 241 mg/dL (75-99)
[2019-09-23] MEDS: INSULIN DETEMIR (LEVEMIR) 100 UNIT/ML SYR SQ SCH (21:35)
[2019-09-23] MEDS: METOPROLOL SUCCINATE (ER) 50 MG TAB.ER.24H PO SCH (21:36)
[2019-09-23] MEDS: ATORVASTATIN 40 MG TAB PO SCH (21:36)
[2019-09-24] MEDS: HYDROmorphone 0.5 MG/0.5 ML SYRINGE IVP PRN ×2 (00:06→05:54)
[2019-09-24] MEDS: HYDROCORTISONE 10 MG TAB PO SCH ×3 (00:09→13:16)
[2019-09-24] MEDS: SODIUM CHLORIDE 0.9% 1,000 ML IV SCH ×2 (00:10→13:14)
[2019-09-24] MEDS: BUTALB/APAP/CAFF 50-325-40MG TAB PO PRN ×2 (03:26→15:56)
[2019-09-24 07:12] LABS: Glucose,Whole Blood 77 mg/dL (75-99)
[2019-09-24] MEDS: VENLAFAXINE HCL 75 MG TAB PO SCH (10:06)
[2019-09-24] MEDS: INSULIN ASPART (NovoLOG) 100 UNIT/ML VIAL SQ SCH ×3 (10:06→17:45)
[2019-09-24] MEDS: LISINOPRIL 5 MG TAB PO SCH (10:07)
[2019-09-24] MEDS: ASPIRIN 81 MG PO SCH (10:07)
[2019-09-24] MEDS: PANTOPRAZOLE 40 MG TABLET PO SCH (10:07)
[2019-09-24] MEDS: HYDROcodone/APAP 10-325MG 1 EACH TAB PO SCH ×2 (10:08→17:45)
[2019-09-24] MEDS: MAGNESIUM OXIDE 400 MG TAB PO SCH ×2 (10:08→15:56)
[2019-09-24] MEDS: BRIMONIDINE TARTRATE 0.2% DROPS 5 ML BTL RIGHT EYE SCH (10:09)
[2019-09-24] MEDS: THIAMINE 100 MG TAB PO SCH (10:09)
[2019-09-24] MEDS ORDERED: ACETAMINOPHEN TAB 500 MG TAB PO STA (10:13)
[2019-09-24] MEDS ORDERED: diphenhydrAMINE 50 MG/ML 1 ML VIAL IVP STA (10:13)
[2019-09-24] MEDS ORDERED: MAGNESIUM SULFATE-D5W PMX 1 GM in DEXTROSE/WATER 1 100ML.BAG IVPB ONE (10:13)
[2019-09-24 12:28] LABS: Glucose,Whole Blood 178 mg/dL (75-99)
--- NOTE | 2019-09-24 14:45 | P.PN ---
Subjective Progress Note Date: 09/24/19 Patient was seen for a follow-up. Patient is been seen multiple times in the past for similar complaints. This time patient admitted again for headaches pointing to the right parietal region. Initial consultation performed by Dr. Carvajal. Patient states her headache is about 8/10, pointing to the right parietal region, "where I hit my head". Patient denies any nausea or vomiting. It is a throbbing headache, sometimes stabbing. Patient states that she is waiting for her "cocktail", which includes Tylenol, magnesium and Benadryl. Afterwards she will be going home. She will be getting injection of Aimovig tomorrow at her PCPs office. Patient has not seen Dr. Barry, her neurologist since last seen. She has an appointment with Dr. Barry on 10/09/2019. Objective - Vital Signs Vital signs: Vital Signs Temp 97.9 F 09/24/19 05:11 Pulse 55 L 09/24/19 05:11 Resp 20 09/24/19 05:11 BP 161/76 09/24/19 05:11 Pulse Ox 94 L 09/24/19 05:11 Intake & Output 09/23/19 09/24/19 09/24/19 18:59 06:59 18:59 Intake Total 700 200 Balance 700 200 Intake: IV 700 Magnesium Sulfate-D5w Pmx 100 1 gm In Dextrose/Water 1 100ml.bag @ 100 mls/hr IVPB ONCE ONE Rx#: [id number] Sodium Chloride 0.9% 1, 600 000 ml @ 75 mls/hr IV . [id number] [facility] Rx#:[id number] Oral 200 Other: Voiding Method Toilet # Voids 2 - Exam Mentation, cranial nerves, strength, gait normal. - Labs CBC & Chem 7: 09/18/19 23:25 09/23/19 07:05 Labs: Abnormal Lab Results - Last 24 Hours (Table) 09/23/19 09/23/19 09/24/19 Range/Units 16:49 20:47 12:24 POC Glucose (mg/dL) 262 H 241 H 178 H (75-99) mg/dL Assessment and Plan Assessment: * Medically intractable chronic migraines. * History of minor closed head injury. * history of bilateral occipital neuralgia, currently stable. * Diabetes, poorly controlled * COPD * Fibromyalgia * Hypertension Plan: * Patient underwent MRI of the cervical spine on 09/16/2019, which revealed moderate degenerative disc disease especially from C4 through C7 levels. Multilevel facet and uncovertebral joint arthropathy. Changes resulting in mild narrowing of the spinal canal at C4 5 and C5 6. No high-grade canal compromise or cord compression. Moderate to severe right C5 6 neural foraminal narrowing. * MRI of the brain with and without contrast on 09/19/2019 showed patchy periventricular white matter hyperintensities, likely on the basis of chronic white matter ischemic changes. Findings are stable from 2017. Old right basal ganglia on lacunar infarct. * Patient will be receiving her "cocktail". Thereafter patient will be discharged and follow up with her primary physician tomorrow to receive injection of Aimovig. patient needs to follow-up with her neurologist. * Neurologically clear for discharge.
[2019-09-24 15:15] VITALS: BP 146/57; PULSE 63; RESP 16; TEMP 98.2
[2019-09-24 17:38] LABS: Glucose,Whole Blood 280 mg/dL (75-99)
--- NOTE | 2019-09-24 18:46 | P.DS ---
Providers Date of admission: 09/20/19 09:24 Expected date of discharge: 09/24/19 Attending physician: Andrew Gonsales MD Consults: 09/19/19 02:10 Consult Physician Routine Consulting Provider: Alison Carvajal Consult Reason/Comments: intractable PATEL, history of headaches Do you want consulting provider notified?: Yes, Notify in am Primary care physician: Andrew Gonsales MD Hospital Course: Final Diagnoses: (1) Status migrainosus Current Visit: Yes Status: Acute Code(s): G43.901 - MIGRAINE, UNSP, NOT INTRACTABLE, WITH STATUS MIGRAINOSUS SNOMED Code(s): 887781724 (2) Intractable headache, status post bilateral occipital nerve block Current Visit: Yes Status: Acute Code(s): R51 - HEADACHE SNOMED Code(s): 38238923 (3) Adrenal insufficiency Current Visit: No Status: Acute Code(s): E27.40 - UNSPECIFIED ADRENOCORTICAL INSUFFICIENCY SNOMED Code(s): 381299501 (4) At risk for readmission to hospital Current Visit: No Status: Acute Code(s): Z91.89 - OTH PERSONAL RISK FACTORS, NOT ELSEWHERE CLASSIFIED SNOMED Code(s): 9254051229907 (5) CAD (coronary artery disease) Current Visit: No Status: Acute Code(s): I25.10 - ATHSCL HEART DISEASE OF [place] CORONARY ARTERY W/O ANG PCTRS SNOMED Code(s): 08806476 (6) Migraine Current Visit: No Status: Acute Code(s): G43.909 - MIGRAINE, UNSP, NOT INTRACTABLE, WITHOUT STATUS MIGRAINOSUS SNOMED Code(s): 23079404 (7) DM type 2 (diabetes mellitus, type 2) Current Visit: No Status: Chronic Code(s): E11.9 - TYPE 2 DIABETES MELLITUS WITHOUT COMPLICATIONS SNOMED Code(s): 63071122 Hospital course:Melissa Pena is a 69 yo F with PMH of severe migraine headaches, recently admitted for the same and last discharged just 3 days ago. She states that after she left the hospital her headaches were almost completely resolved but then came back at home. She tried taking tylenol, magnesium, and reglan at home but it did not help. She endorses photophobia. Denies ear pain or pressure, dizziness, sinus pressure, fever, chills, cough. She does feel her headaches have been much worse over the past month or so ever since she had a fall and has been hard to get back to her previous baseline. She last had occipital nerve blocks about 2 months ago which were very helpful. In the ED her vitals and labs were unremarkable with the exception of glucose 330. MRI brain was performed which was negative for acute process and shows chronic white matter changes associated with migraine. 09/20/2019 complains of difficulty sleeping related to unrelieved headaches. attempted Robaxin, fioricet, Benadryl, Zofran last night with short lived improvement. Reports minimal intake yesterday secondary to significant nausea Recently received Benadryl, Tylenol magnesium. Patient consented to bedside bilateral occipital nerve block by Dr. Andrew Gonsales. Tolerated well. Denies chest pain, palpitations or shortness of breath. 09/23/2019 persistent headache, rating it "8 out of 10". Good diet intake, consuming 75-100%. No nausea vomiting or diarrhea. Denies chest pain, palpitations or shortness of breath. Patient reports headache better this morning. Received migraine cocktail of magnesium 1 g IV, Tylenol 1000 mg, Benadryl 25 mg IV. Significant clinical improvement. Cleared by neurology for discharge. Patient is being discharged home in a stable condition with guarded prognosis. Instructed to follow up with Dr. Andrew Gonsales for Initial injection of Aimovig, and to maintain her scheduled appointment with Dr. Brennan, Neurology on the 22 of this month. The impression and plan of care has been dictated as directed. : I performed a history and examination of this patient, discussed the same with the dictator. I agree with the dictator's note ,documented as a scribe. Any additional findings or plans will be noted.. Patient Condition at Discharge: Stable Plan - Discharge Summary Discharge Rx Participant: No New Discharge Prescriptions: Continue Cholecalciferol [Vitamin D3 (25 Mcg = 1000 Iu)] 3,000 unit PO DAILY@0700 Ondansetron [Zofran] 4 mg PO BID PRN PRN Reason: Nausea And Vomiting Metoprolol Succinate (ER) [Toprol XL] 50 mg PO HS Meclizine [Antivert] 25 mg PO QID PRN PRN Reason: Vertigo Hydrocortisone [Cortef] 15 mg PO AC-BRKFST Hydrocortisone [Cortef] 5 mg PO HS Aspirin 81 mg PO DAILY #0 Glucagon Emergency Kit 1 mg IM ONCE PRN PRN Reason: Hypoglycemia Ferrous Sulfate [Iron (65 MG Elemental)] 325 mg PO DAILY Vitamin B-Complex Drops 1 drop PO BID Thiamine [Vitamin B-1] 100 mg PO DAILY Folic Acid 0.4 mg PO DAILY Multivitamins, Thera Liquid [Theragran Liquid (formulary)] 30 ml PO DAILY L.acidoph,Paracasei, B.lactis [Probiotic] 2 cap PO BID Melatonin 5 mg PO HS PRN PRN Reason: Insomnia Cranberry 300mg 300 mg PO BID Potassium 99 mg PO DAILY Lisinopril [Zestril] 15 mg PO QAM Atorvastatin [Lipitor] 40 mg PO HS #30 tab HYDROcodone/APAP 10-325MG [Whipple 10-325] 1 tab PO TID PRN PRN Reason: Pain Pantoprazole [Protonix] 40 mg PO DAILY Insulin Glargine [Lantus] 26 unit SQ HS Venlafaxine HCl [Effexor] 75 mg PO DAILY Hydrocortisone [Cortef] 10 mg PO AC-LUNCH Brimonidine Tartrate [Alphagan P 0.2% Ophth Soln] 1 drops RIGHT EYE BID Acetaminophen [Tylenol Extra Strength] 1,000 mg PO DAILY PRN PRN Reason: Migraine Headache Prochlorperazine [Compazine] 10 mg PO BID PRN #20 tab PRN Reason: Headache Magnesium Oxide [Mag-Ox] 400 mg PO BID #1 tab Gabapentin [Neurontin] 200 mg PO BID Insulin Aspart [NovoLOG Flexpen] 15 unit SQ AC-BRKFST #0 Insulin Aspart [NovoLOG Flexpen] 18 units SQ AC-LUNCH #0 Insulin Aspart [NovoLOG Flexpen] 22 units SQ AC-SUPPER #0 Discharge Medication List Cholecalciferol [Vitamin D3 (25 Mcg = 1000 Iu)] 3,000 unit PO DAILY@0700 12/01/14 [History] Ondansetron [Zofran] 4 mg PO BID PRN 10/12/15 [History] Metoprolol Succinate (ER) [Toprol XL] 50 mg PO HS 07/06/17 [History] Meclizine [Antivert] 25 mg PO QID PRN 11/26/17 [History] Hydrocortisone [Cortef] 15 mg PO AC-BRKFST 05/18/18 [History] Hydrocortisone [Cortef] 5 mg PO HS 06/26/18 [History] Aspirin 81 mg PO DAILY #0 07/02/18 [Rx] Glucagon Emergency Kit 1 mg IM ONCE PRN 08/12/18 [History] Cranberry 300mg 300 mg PO BID 10/08/18 [History] Ferrous Sulfate [Iron (65 MG Elemental)] 325 mg PO DAILY 10/08/18 [History] Folic Acid 0.4 mg PO DAILY 10/08/18 [History] L.acidoph,Paracasei, B.lactis [Probiotic] 2 cap PO BID 10/08/18 [History] Melatonin 5 mg PO HS PRN 10/08/18 [History] Multivitamins, Thera Liquid [Theragran Liquid (formulary)] 30 ml PO DAILY 10/08/18 [History] Potassium 99 mg PO DAILY 10/08/18 [History] Thiamine [Vitamin B-1] 100 mg PO DAILY 10/08/18 [History] Vitamin B-Complex Drops 1 drop PO BID 10/08/18 [History] Lisinopril [Zestril] 15 mg PO QAM 11/08/18 [History] Atorvastatin [Lipitor] 40 mg PO HS #30 tab 11/16/18 [Rx] HYDROcodone/APAP 10-325MG [Whipple 10-325] 1 tab PO TID PRN 12/26/18 [History] Insulin Glargine [Lantus] 26 unit SQ HS 01/29/19 [History] Pantoprazole [Protonix] 40 mg PO DAILY 01/29/19 [History] Venlafaxine HCl [Effexor] 75 mg PO DAILY 03/12/19 [History] Hydrocortisone [Cortef] 10 mg PO AC-LUNCH 08/30/19 [History] Brimonidine Tartrate [Alphagan P 0.2% Ophth Soln] 1 drops RIGHT EYE BID 08/31/19 [History] Acetaminophen [Tylenol Extra Strength] 1,000 mg PO DAILY PRN 09/12/19 [History] Prochlorperazine [Compazine] 10 mg PO BID PRN #20 tab 09/14/19 [Rx] Magnesium Oxide [Mag-Ox] 400 mg PO BID #1 tab 09/16/19 [Rx] Gabapentin [Neurontin] 200 mg PO BID 09/19/19 [History] Insulin Aspart [NovoLOG Flexpen] 15 unit SQ AC-BRKFST #0 09/24/19 [Rx] Insulin Aspart [NovoLOG Flexpen] 18 units SQ AC-LUNCH #0 09/24/19 [Rx] Insulin Aspart [NovoLOG Flexpen] 22 units SQ AC-SUPPER #0 09/24/19 [Rx] Follow up Appointment(s)/Referral(s): Andrew Gonsales MD [Primary Care Provider] - 09/25/19 (Please call office to make PCP hospital follow up) Patient Instructions/Handouts: Acute Headache (DC) Activity/Diet/Wound Care/Special Instructions: Patient advised to follow with Dr. Gonsales tomorrow at office on Will begin Aimovig inj.
--- NOTE | 2019-09-25 13:17 | CDI ---
Documentation Clarification Form Date: 09/25/19 From: Yumiko Garibay Phone: If you have a question about this query, please contact Lissy Chawla, [employer] Repairer at [phone] between 8am and 5pm. Admit Date: 09/20/19 Discharge Date: 09/24/19 Patient Name: EMELY HERNANDEZ Visit Number: [id number] ATTENTION: The Clinical Documentation Specialists (CDI) and [facility] Coding Staff appreciate your assistance in clarifying documentation. Please respond to the clarification below the line at the bottom and electronically sign. The CDI & [facility] Coding staff will review the response and follow-up if needed. Please note: Queries are made part of the Legal Health Record. If you have any questions, please contact the author of this message via ITS. Dear Dr. Andrew Gonsales, The patient has poorly controlled Type II diabetes, as indicated in progress note 09/23. POC Glucose: 198, 154, 237, 119, 93, 105, 165, 172, 233, 269, 216, 213, 244, 248, 87, 161, 204, 253, 109, 132, 262, 241, 77, 178, 280 Glucose: 332, 97 Treatment: glucose monitoring, [place] R, Novolog, Levemir Per [facility] 2016 - query the provider for clarification whether the patient has hyperglycemia or hypoglycemia so that the appropriate code may be reported - uncontrolled diabetes indicates that the patient's blood sugar is not at an acceptable level, because it is either too high or too low. In order to capture the severity of Illness and necessary documentation specificity, please clarify if Type 2 uncontrolled diabetes is: Hyperglycemia Other, please specify Unable to Determine hyperglycemia MTDD
--- NOTE | 2019-11-12 13:29 | P.PCN ---
Date of Procedure: 09/20/19 Preoperative Diagnosis: migraine Postoperative Diagnosis: same Procedure(s) Performed: greater occipital nerve block, bilateral Anesthesia: local Pathology: none sent Condition: stable Disposition: no change Indications for Procedure: intractable migraine Description of Procedure: Verbal and written consent. A time out was performed. At the bedside, the scalp was prepped with alcohol. Using a 27 gauge needle, the left occipital nerve was injected with 20 mg depomedrol, 0.5 cc 1% lidocaine without epinephrine and 0.5 cc marcaine. The right occipital nerve was then injected with 20 mg depomedrol, 0.5 cc 1% lidocaine without epinephrine and 0.5 cc marcaine. The patient reported immediate improvement in her migraine. No blood loss.
== END 2019-09-24 18:53 | disposition home or self-care (01) | DRG 103 ==
LOC: EC 22:12 → 6NMEDSUR 09-19 03:16 → OBSVTOIN 09-20 09:24
PROVIDERS: ADMIT Family Medicine; ATTEND Family Medicine
PROC: 3E0T33Z Introduction of Anti-inflammatory into Peripheral Nerves and Plexi, Percutaneous Approach (ICD-10-PCS; principal; 2019-09-20)
PROC: 3E0T3BZ Introduction of Anesthetic Agent into Peripheral Nerves and Plexi, Percutaneous Approach (ICD-10-PCS; principal; 2019-09-20)
DX: G43.911 Migraine, unspecified, intractable, with status migrainosus (principal); E27.40 Unspecified adrenocortical insufficiency; E11.65 Type 2 diabetes mellitus with hyperglycemia; S09.90XS Unspecified injury of head, sequela; G93.2 Benign intracranial hypertension; M47.812 Spondylosis without myelopathy or radiculopathy, cervical region; M41.9 Scoliosis, unspecified; M48.02 Spinal stenosis, cervical region; M25.78 Osteophyte, vertebrae; G47.30 Sleep apnea, unspecified; E21.3 Hyperparathyroidism, unspecified; M79.7 Fibromyalgia; E78.5 Hyperlipidemia, unspecified; I10 Essential (primary) hypertension; I25.10 Atherosclerotic heart disease of native coronary artery without angina pectoris; E66.9 Obesity, unspecified; J44.9 Chronic obstructive pulmonary disease, unspecified; K21.9 Gastro-esophageal reflux disease without esophagitis; M19.90 Unspecified osteoarthritis, unspecified site; I83.90 Asymptomatic varicose veins of unspecified lower extremity; J35.1 Hypertrophy of tonsils; G47.8 Other sleep disorders; Z68.28 Body mass index [BMI] 28.0-28.9, adult; Z91.81 History of falling; M75.101 Unspecified rotator cuff tear or rupture of right shoulder, not specified as traumatic; Z79.82 Long term (current) use of aspirin; Z79.4 Long term (current) use of insulin; Z79.52 Long term (current) use of systemic steroids; Z79.899 Other long term (current) drug therapy; Z86.73 Personal history of transient ischemic attack (TIA), and cerebral infarction without residual deficits; Z86.718 Personal history of other venous thrombosis and embolism; Z87.01 Personal history of pneumonia (recurrent); Z87.442 Personal history of urinary calculi; Z87.440 Personal history of urinary (tract) infections; Z87.81 Personal history of (healed) traumatic fracture; Z99.89 Dependence on other enabling machines and devices; Z89.421 Acquired absence of other right toe(s); Z86.14 Personal history of Methicillin resistant Staphylococcus aureus infection; Z86.19 Personal history of other infectious and parasitic diseases; Z90.49 Acquired absence of other specified parts of digestive tract; Z90.710 Acquired absence of both cervix and uterus; Z87.448 Personal history of other diseases of urinary system; Z98.1 Arthrodesis status; Z98.890 Other specified postprocedural states; Z88.5 Allergy status to narcotic agent; Z88.0 Allergy status to penicillin; Z88.2 Allergy status to sulfonamides; Z88.8 Allergy status to other drugs, medicaments and biological substances; Z88.1 Allergy status to other antibiotic agents; Z91.02 Food additives allergy status; Z83.3 Family history of diabetes mellitus; Z82.49 Family history of ischemic heart disease and other diseases of the circulatory system; Z80.49 Family history of malignant neoplasm of other genital organs; Z82.3 Family history of stroke; Z83.6 Family history of other diseases of the respiratory system
CPT/HCPCS: 36415; 70553; 80048; 80053; 81003; 83735; 85025; 96361; 96374; 96375; 96376; 99283; 99284

== ENCOUNTER 2019-10-28 02:57 | Inpatient (IN) | payer MEDICARE, BC ==
[2019-10-28] MEDS ORDERED: ONDANSETRON 4 MG/2 ML VIAL IVP STA (03:11)
[2019-10-28] MEDS ORDERED: SODIUM CHLORIDE 0.9% 500 ML 500 ML IV STA (03:11)
[2019-10-28 03:23] LABS: Basophils % (A) 0 %; Eosinophils # (A) 0.2 k/uL (0-0.7); Eosinophils % (A) 2 %; HCT 45.2 % (34.0-46.0); HGB 14.8 gm/dL (11.4-16.0); Lymphocytes # (A) 2.6 k/uL (1.0-4.8); Lymphocytes % (A) 27 %; MCH 29.3 pg (25.0-35.0); MCHC 32.8 g/dL (31.0-37.0); MCV 89.5 fL (80.0-100.0); Mean Platelet Volume 8.1; Monocytes # (A) 0.7 k/uL (0-1.0); Monocytes % (A) 7 %; Neutrophils # (A) 6.1 k/uL (1.3-7.7); Neutrophils % (A) 63 %; Platelet Count 222 k/uL (150-450); RBC 5.05 m/uL (3.80-5.40); RDW 14.6 % (11.5-15.5); WBC 9.7 k/uL (3.8-10.6)
[2019-10-28 03:28] LABS: ALT 15 U/L (4-34); AST 32 U/L (14-36); African American GFR (CKD) >90 (>60 ml/min/1.73 sqM); Alkaline Phosphatase 50 U/L (38-126); Amylase 37 U/L (30-110); Anion Gap 10 mmol/L; Blood Urea Nitrogen 18 mg/dL (7-17); Calcium 8.8 mg/dL (8.4-10.2); Carbon Dioxide 28 mmol/L (22-30); Chloride 97 mmol/L (98-107); Glucose 156 mg/dL (74-99); Non-African American GFR(CKD) >90 (>60 ml/min/1.73 sqM); Sodium 135 mmol/L (137-145); Total Bilirubin 1.3 mg/dL (0.2-1.3); Total Protein 6.4 g/dL (6.3-8.2)
[2019-10-28 03:41] LABS: Potassium 3.9 mmol/L (3.5-5.1)
[2019-10-28] MEDS ORDERED: HYDROmorphone 0.5 MG/0.5 ML SYRINGE IVP STA ×3 (03:46→09:17)
--- NOTE | 2019-10-28 03:49 | ED ---
Nausea/Vomiting/Diarrhea HPI - General Chief complaint: Nausea/Vomiting/Diarrhea Stated complaint: vomiting,nausea Time Seen by Provider: 10/28/19 03:05 Source: patient, EMS Mode of arrival: EMS Limitations: no limitations - Related Data Home Medications Medication Instructions Recorded Confirmed Cholecalciferol [Vitamin D3 (25 3,000 unit PO DAILY@0700 12/01/14 09/19/19 Mcg = 1000 Iu)] Ondansetron [Zofran] 4 mg PO BID PRN 10/12/15 09/19/19 Metoprolol Succinate (ER) [Toprol 50 mg PO HS 07/06/17 09/19/19 XL] Meclizine [Antivert] 25 mg PO QID PRN 11/26/17 09/19/19 Hydrocortisone [Cortef] 15 mg PO AC-BRKFST 05/18/18 09/19/19 Hydrocortisone [Cortef] 5 mg PO HS 06/26/18 09/19/19 Glucagon Emergency Kit 1 mg IM ONCE PRN 08/12/18 09/19/19 Cranberry 300mg 300 mg PO BID 10/08/18 09/19/19 Ferrous Sulfate [Iron (65 MG 325 mg PO DAILY 10/08/18 09/19/19 Elemental)] Folic Acid 0.4 mg PO DAILY 10/08/18 09/19/19 L.acidoph,Paracasei, B.lactis 2 cap PO BID 10/08/18 09/19/19 [Probiotic] Melatonin 5 mg PO HS PRN 10/08/18 09/19/19 Multivitamins, Thera Liquid 30 ml PO DAILY 10/08/18 09/19/19 [Theragran Liquid (formulary)] Potassium 99 mg PO DAILY 10/08/18 09/19/19 Thiamine [Vitamin B-1] 100 mg PO DAILY 10/08/18 09/19/19 Vitamin B-Complex Drops 1 drop PO BID 10/08/18 09/19/19 Lisinopril [Zestril] 15 mg PO QAM 11/08/18 09/19/19 HYDROcodone/APAP 10-325MG [[place] 1 tab PO TID PRN 12/26/18 09/19/19 10-325] Insulin Glargine [Lantus] 26 unit SQ HS 01/29/19 09/19/19 Pantoprazole [Protonix] 40 mg PO DAILY 01/29/19 09/19/19 Venlafaxine HCl [Effexor] 75 mg PO DAILY 03/12/19 09/19/19 Hydrocortisone [Cortef] 10 mg PO AC-LUNCH 08/30/19 09/19/19 Brimonidine Tartrate [Alphagan P 1 drops RIGHT EYE BID 08/31/19 09/19/19 0.2% Ophth Soln] Acetaminophen [Tylenol Extra 1,000 mg PO DAILY PRN 09/12/19 09/19/19 Strength] Gabapentin [Neurontin] 200 mg PO BID 09/19/19 09/19/19 Previous Rx's Medication Instructions Recorded Aspirin 81 mg PO DAILY #0 07/02/18 Atorvastatin [Lipitor] 40 mg PO HS #30 tab 11/16/18 Prochlorperazine [Compazine] 10 mg PO BID PRN #20 tab 09/14/19 Magnesium Oxide [Mag-Ox] 400 mg PO BID #1 tab 09/16/19 Insulin Aspart [NovoLOG Flexpen] 15 unit SQ AC-BRKFST #0 09/24/19 Insulin Aspart [NovoLOG Flexpen] 18 units SQ AC-LUNCH #0 09/24/19 Insulin Aspart [NovoLOG Flexpen] 22 units SQ AC-SUPPER #0 09/24/19 Allergies Allergy/AdvReac Type Severity Reaction Status Date / Time butorphanol tartrate Allergy BLISTERS Verified 09/19/19 07:40 [From Stadol] IN MOUTH ceftriaxone [From Rocephin] Allergy Unknown Verified 09/19/19 07:40 clarithromycin [From Biaxin] Allergy Rash/Hives Verified 09/19/19 07:40 codeine Allergy Rash/Hives Verified 09/19/19 07:40 ergotamine tartrate Allergy Unknown Verified 09/19/19 07:40 [From Cafergot] erythromycin base Allergy RASH, GI Verified 09/19/19 07:40 [From E-Mycin] SYMPTOMS ketorolac tromethamine Allergy Rash/Hives Verified 09/19/19 07:40 [From Toradol] liraglutide [From Victoza] Allergy Rash/Hives Verified 09/19/19 07:40 morphine Allergy Rash/Hives Verified 09/19/19 07:40 Penicillins Allergy Rash/Hives Verified 09/19/19 07:40 pentazocine lactate Allergy SEVERE Verified 09/19/19 07:40 [From Talwin] BLISTERS IN MOUTH pregabalin [From Lyrica] Allergy Rash/Hives Verified 09/19/19 07:40 propoxyphene HCl Allergy Rash/Hives Verified 09/19/19 07:40 [From Darvon] Sulfa (Sulfonamide Allergy Rash/Hives Verified 09/19/19 07:40 Antibiotics) tramadol Allergy Unknown Verified 09/19/19 07:40 monosodium glutamate [MSG] AdvReac Nausea & Verified 09/19/19 07:40 Vomiting nalbuphine HCl [From Nubain] AdvReac Nausea & Verified 09/19/19 07:40 Vomiting Review of Systems ROS Statement: Those systems with pertinent positive or pertinent negative responses have been documented in the HPI. ROS Other: All systems not noted in ROS Statement are negative. 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, R wrist/elbow nerve repair, bone removed R shoulder, 4th toe R foot partial amputation, bilateral feet/bunionectomies, R knee arthroscopies, R orbit decompression with ethmoidectomy and eyelid lift, EGD, colonoscopies, cystocopies, lithotripsy/stents, total hysterectomy, bilateral breast reduction, bilateral cataract removals.Parathyroid surgery - April 2019, pain clinic procedures Past Anesthesia/Blood Transfusion Reactions: No Reported Reaction Additional Past Anesthesia/Blood Transfusion Reaction / Comment(s): never recieved blood Past Psychological History: No Psychological Hx Reported Smoking Status: Never smoker Past Alcohol Use History: Occasional Past Drug Use History: None Reported - Past Family History Father Family Medical History: Coronary Artery Disease (CAD), CVA/TIA, Diabetes Mellitus, Myocardial Infarction (DE), Pneumonia Additional Family Medical History / Comment(s): Father at the age of 78yrs from DE and pneumonia. Mother Family Medical History: Cancer Additional Family Medical History / Comment(s): Mother had uterine cancer. She recently at the age of 96yrs old. General Exam Limitations: no limitations Course Vital Signs 10/28/19 02:59 Temperature 99.3 F Pulse Rate 118 H Respiratory 18 Rate Blood Pressure 177/107 O2 Sat by Pulse 98 Oximetry Medical Decision Making - Lab Data Result diagrams: 10/28/19 03:05 10/28/19 03:05 Lab Results 10/28/19 10/28/19 Range/Units 03:05 03:05 WBC 9.7 (3.8-10.6) k/uL RBC 5.05 (3.80-5.40) m/uL Hgb 14.8 (11.4-16.0) gm/dL Hct 45.2 (34.0-46.0) % MCV 89.5 (80.0-100.0) fL MCH 29.3 (25.0-35.0) pg MCHC 32.8 (31.0-37.0) g/dL RDW 14.6 (11.5-15.5) % Plt Count 222 (150-450) k/uL Neutrophils % 63 % Lymphocytes % 27 % Monocytes % 7 % Eosinophils % 2 % Basophils % 0 % Neutrophils # 6.1 (1.3-7.7) k/uL Lymphocytes # 2.6 (1.0-4.8) k/uL Monocytes # 0.7 (0-1.0) k/uL Eosinophils # 0.2 (0-0.7) k/uL Basophils # 0.0 (0-0.2) k/uL Sodium 135 L (137-145) mmol/L Potassium 3.9 (3.5-5.1) mmol/L Chloride 97 L (98-107) mmol/L Carbon Dioxide 28 (22-30) mmol/L Anion Gap 10 mmol/L BUN 18 H (7-17) mg/dL Creatinine 0.47 L (0.52-1.04) mg/dL Est GFR (CKD-EPI)AfAm >90 (>60 ml/min/1.73 sqM) Est GFR (CKD-EPI)NonAf >90 (>60 ml/min/1.73 sqM) Glucose 156 H (74-99) mg/dL Calcium 8.8 (8.4-10.2) mg/dL Total Bilirubin 1.3 (0.2-1.3) mg/dL AST 32 (14-36) U/L ALT 15 (4-34) U/L Alkaline Phosphatase 50 (38-126) U/L Total Protein 6.4 (6.3-8.2) g/dL Albumin 4.0 (3.5-5.0) g/dL Amylase 37 (30-110) U/L Lipase 40 (23-300) U/L - EKG Data -: EKG Interpreted by De EKG shows normal: sinus rhythm, axis (Normal), intervals (Normal), QRS complexes (Normal) Rate: tachycardia (Rate 114 bpm) Interpretation: nonspecific ST-T wave changes, LVH (Voltage criteria) Disposition Referrals: Andrew Gonsales MD [Primary Care Provider] - 1-2 days
[2019-10-28 04:34] LABS: Appearance,Urine Cloudy (Clear); Bilirubin,Urine Negative (Negative); Blood,Urine Negative (Negative); Color,Urine Yellow; Glucose,Urine (UA) Negative (Negative); Ketones,Urine 2+ (Negative); Leukocyte Esterase,Urine Moderate (Negative); Mucus,Urine Few /hpf; Nitrite,Urine Negative (Negative); Protein,Urine 1+ (Negative); RBC,Urine 1 /hpf (0-5); Specific Gravity,Urine 1.025 (1.001-1.035); Squamous Epithelial Cell,Urine 4 /hpf (0-4); WBC,Urine 33 /hpf (0-5)
[2019-10-28] MEDS ORDERED: LABETALOL 5 MG/ML VIAL MDV IVP STA (04:47)
[2019-10-28] MEDS ORDERED: NITROFURANTOIN MONOHYD/M-CRYST 100 MG CAP PO STA (04:51)
[2019-10-28] MEDS ORDERED: ACETAMINOPHEN TAB 325 MG TAB PO PRN (06:23)
[2019-10-28] MEDS ORDERED: NALOXONE 0.4 MG/ML 1 ML VIAL IV PRN (06:23)
[2019-10-28] MEDS ORDERED: PROCHLORPERAZINE 5 MG TAB PO PRN (06:23)
[2019-10-28] MEDS ORDERED: ONDANSETRON 4 MG/2 ML VIAL IVP PRN ×2 (06:23→09:17)
[2019-10-28] MEDS ORDERED: MECLIZINE 25 MG TAB PO PRN (06:28)
[2019-10-28] MEDS ORDERED: PROCHLORPERAZINE 10 MG TAB PO PRN (06:28)
[2019-10-28] MEDS: SODIUM CHLORIDE 0.9% 1,000 ML IV SCH (06:41)
[2019-10-28 07:55] LABS: Glucose,Whole Blood 156 mg/dL (75-99)
[2019-10-28] MEDS ORDERED: GABAPENTIN 100 MG CAP PO SCH (09:00)
[2019-10-28] MEDS: BRIMONIDINE TARTRATE 0.2% DROPS 5 ML BTL RIGHT EYE SCH ×2 (09:14→21:05)
[2019-10-28] MEDS ORDERED: MAGNESIUM SULFATE-D5W PMX 1 GM in DEXTROSE/WATER 1 100ML.BAG IVPB ONE (09:17)
[2019-10-28] MEDS ORDERED: SCOPOLAMINE 1.5MG/72HR PATCH TRANSDERM STA (09:17)
[2019-10-28] MEDS: LISINOPRIL 5 MG TAB PO SCH (09:19)
[2019-10-28] MEDS: HYDROCORTISONE 10 MG TAB PO SCH ×3 (09:19→20:59)
[2019-10-28] MEDS: ASPIRIN 81 MG PO SCH (09:19)
[2019-10-28] MEDS: FOLIC ACID 1 MG TAB PO SCH (09:19)
[2019-10-28] MEDS: INSULIN ASPART (NovoLOG) 100 UNIT/ML VIAL SQ SCH ×3 (09:19→17:19)
[2019-10-28] MEDS: FERROUS SULFATE 325 MG TAB PO SCH (09:19)
[2019-10-28] MEDS: MAGNESIUM OXIDE 400 MG TAB PO SCH ×2 (09:19→20:59)
[2019-10-28] MEDS: CHOLECALCIFEROL 1,000 UNIT TAB PO SCH (09:19)
[2019-10-28] MEDS: VENLAFAXINE HCL 75 MG TAB PO SCH (09:20)
[2019-10-28] MEDS: THIAMINE 100 MG TAB PO SCH (09:20)
[2019-10-28] MEDS: PANTOPRAZOLE 40 MG TABLET PO SCH (09:20)
[2019-10-28] MEDS: methylPREDNISolone SOD SUCCI 40 MG/ML 1 ML VIAL IV SCH ×2 (09:40→21:00)
[2019-10-28 11:38] LABS: Glucose,Whole Blood 221 mg/dL (75-99)
[2019-10-28] MEDS: HYDROcodone/APAP 10-325MG 1 EACH TAB PO PRN ×2 (13:06→20:59)
[2019-10-28 16:44] LABS: Glucose,Whole Blood 283 mg/dL (75-99)
[2019-10-28] MEDS: BUTALB/APAP/CAFF 50-325-40MG TAB PO PRN ×2 (17:17→22:25)
--- NOTE | 2019-10-28 19:24 | P.CNNES ---
History of Present Illness Consult date: 10/28/19 Requesting physician: Andrew Gonsales Reason for Consult: Intractable migraine History of Present Illness: Patient is a 69-year-old female, very well known to me from recurrent admissions to the hospital for medically intractable migraines. Please refer to my note from 11/11/2018 and 09/02/2019 for details. Patient came with recurrent migraine. Patient states that she received Aimovig injection at her PCPs office on 09/25/2019. Patient apparently has not been admitted to the hospital since then. Patient however could not tell me if Aimovig injection helped her at all. Patient states that in the last 30 days she has about 10 days of headache in a month. Patient in general believes the injection did not help her. Patient states that her headache has been present for the last 7 days, it is a very bad headache, rates 10/10. She points it to the right parietal region, referring to the area where she had her previous history of concussion. Patient has received Dilaudid 0.5 mg twice in the ER today, and also received a third dose in the hospital. Patient is asking for more Dilaudid. Patient is not ta delfina Neurontin. She had some side effects from Topamax. Patient's blood test shows negative PCR for fernandez virus. UA showed moderate leukocyte esterase. Review of Systems As above in detail. Patient complains of lack of energy. Headaches, nausea. 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, R wrist/elbow nerve repair, bone removed R shoulder, 4th toe R foot partial amputation, bilateral feet/bunionectomies, R knee arthroscopies, R orbit decompression with ethmoidectomy and eyelid lift, EGD, colonoscopies, cystocopies, lithotripsy/stents, total hysterectomy, bilateral breast reduction, bilateral cataract removals.Parathyroid surgery - April 2019, pain clinic procedures Past Anesthesia/Blood Transfusion Reactions: No Reported Reaction Additional Past Anesthesia/Blood Transfusion Reaction / Comment(s): never recieved blood Past Psychological History: No Psychological Hx Reported Additional Psychological History / Comment(s): Pt resides with her spouse. She uses a walker if out shopping. She drives. She has a nebulizer, cpap, bsc, shower chair, bp machine, dexcom monitor system for her bs. Smoking Status: Never smoker Past Alcohol Use History: Occasional Additional Past Alcohol Use History / Comment(s): no alcohol Past Drug Use History: None Reported - Past Family History Father Family Medical History: Coronary Artery Disease (CAD), CVA/TIA, Diabetes Mellitus, Myocardial Infarction (DE), Pneumonia Additional Family Medical History / Comment(s): Father at the age of 78yrs from DE and pneumonia. Mother Family Medical History: Cancer Additional Family Medical History / Comment(s): Mother had uterine cancer. She recently at the age of 96yrs old. Medications and Allergies Home Medications Medication Instructions Recorded Confirmed Type Cholecalciferol [Vitamin D3 (25 3,000 unit PO DAILY@0700 12/01/14 10/28/19 History Mcg = 1000 Iu)] Metoprolol Succinate (ER) [Toprol 50 mg PO HS 07/06/17 10/28/19 History XL] Meclizine [Antivert] 25 mg PO TID PRN 11/26/17 10/28/19 History Hydrocortisone [Cortef] 15 mg PO AC-BRKFST 05/18/18 10/28/19 History Hydrocortisone [Cortef] 5 mg PO HS 06/26/18 10/28/19 History Aspirin 81 mg PO DAILY #0 01/14/19 05/11/20 Rx Glucagon Emergency Kit 1 mg IM ONCE PRN 08/12/18 10/28/19 History Cranberry 300mg 300 mg PO BID 10/08/18 10/28/19 History Ferrous Sulfate [Iron (65 MG 325 mg PO DAILY 10/08/18 10/28/19 History Elemental)] Folic Acid 0.4 mg PO DAILY 10/08/18 10/28/19 History L.acidoph,Paracasei, B.lactis 2 cap PO BID 10/08/18 10/28/19 History [Probiotic] Melatonin 5 mg PO HS PRN 10/08/18 10/28/19 History Multivitamins, Thera Liquid 30 ml PO DAILY 10/08/18 10/28/19 History [Theragran Liquid (formulary)] Potassium 99 mg PO DAILY 10/08/18 10/28/19 History Thiamine [Vitamin B-1] 100 mg PO DAILY 10/08/18 10/28/19 History Vitamin B-Complex Drops 1 drop PO BID 10/08/18 10/28/19 History Lisinopril [Zestril] 15 mg PO QAM 11/08/18 10/28/19 History Atorvastatin [Lipitor] 40 mg PO HS #30 tab 11/16/18 10/28/19 Rx HYDROcodone/APAP 10-325MG [[place] 1 tab PO TID PRN 12/26/18 10/28/19 History 10-325] Insulin Glargine [Lantus] 26 unit SQ HS 01/29/19 10/28/19 History Pantoprazole [Protonix] 40 mg PO DAILY 01/29/19 10/28/19 History Venlafaxine HCl [Effexor] 75 mg PO DAILY 03/12/19 10/28/19 History Hydrocortisone [Cortef] 10 mg PO AC-LUNCH 08/30/19 10/28/19 History Brimonidine Tartrate [Alphagan P 1 drops RIGHT EYE BID 08/31/19 10/28/19 History 0.2% Ophth Soln] Acetaminophen [Tylenol Extra 1,000 mg PO DAILY PRN 09/12/19 10/28/19 History Strength] Prochlorperazine [Compazine] 10 mg PO BID PRN #20 tab 09/14/19 10/28/19 Rx Magnesium Oxide [Mag-Ox] 400 mg PO BID #1 tab 09/16/19 10/28/19 Rx Insulin Aspart [NovoLOG Flexpen] 18 units SQ AC-LUNCH #0 09/24/19 10/28/19 Rx Insulin Aspart [NovoLOG Flexpen] 22 units SQ AC-SUPPER #0 09/24/19 10/28/19 Rx Insulin Aspart [NovoLOG Flexpen] 14 units SQ AC-BRKFST 10/28/19 10/28/19 History Metoclopramide [Reglan] 5 mg PO DAILY PRN 10/28/19 10/28/19 History Allergies Allergy/AdvReac Type Severity Reaction Status Date / Time butorphanol tartrate Allergy BLISTERS Verified 10/28/19 07:56 [From Stadol] IN MOUTH ceftriaxone [From Rocephin] Allergy Unknown Verified 10/28/19 07:56 clarithromycin [From Biaxin] Allergy Rash/Hives Verified 10/28/19 07:56 codeine Allergy Rash/Hives Verified 10/28/19 07:56 ergotamine tartrate Allergy Unknown Verified 10/28/19 07:56 [From Cafergot] erythromycin base Allergy RASH, GI Verified 10/28/19 07:56 [From E-Mycin] SYMPTOMS ketorolac tromethamine Allergy Rash/Hives Verified 10/28/19 07:56 [From Toradol] liraglutide [From Victoza] Allergy Rash/Hives Verified 10/28/19 07:56 morphine Allergy Rash/Hives Verified 10/28/19 07:56 Penicillins Allergy Rash/Hives Verified 10/28/19 07:56 pentazocine lactate Allergy SEVERE Verified 10/28/19 07:56 [From Talwin] BLISTERS IN MOUTH pregabalin [From Lyrica] Allergy Rash/Hives Verified 10/28/19 07:56 propoxyphene HCl Allergy Rash/Hives Verified 10/28/19 07:56 [From Darvon] Sulfa (Sulfonamide Allergy Rash/Hives Verified 10/28/19 07:56 Antibiotics) tramadol Allergy Unknown Verified 10/28/19 07:56 monosodium glutamate [MSG] AdvReac Nausea & Verified 10/28/19 07:56 Vomiting nalbuphine HCl [From Nubain] AdvReac Nausea & Verified 10/28/19 07:56 Vomiting Physical Examination - Vital Signs Vital Signs: Vital Signs Temp Pulse Pulse Resp BP BP Pulse Ox 10/28/19 07:00 98.6 F 79 16 129/76 93 L 10/28/19 06:45 70 16 165/97 98 10/28/19 06:15 70 16 137/94 97 10/28/19 05:45 72 16 130/82 97 10/28/19 05:30 70 16 134/72 95 10/28/19 05:15 69 16 111/62 96 10/28/19 04:45 72 16 171/103 98 10/28/19 04:15 71 16 163/104 98 10/28/19 03:45 90 16 160/105 100 10/28/19 02:59 99.3 F 118 H 18 177/107 98 Intake and Output 10/27/19 10/28/19 10/28/19 22:59 06:59 14:59 Other: Voiding Method Toilet Weight 64.864 kg 64.864 kg On examination, patient is an elderly female, very pleasant in no acute distress. Patient's mental status, speech and language functions are no rmal. Cranial nerve examination shows normal pupils, round and reactive, visual hinds are full on confrontation, extraocular muscles are intact with no nystagmus. Face is symmetric, tongue protrudes to the midline. Palatal elevation and sensation normal. On muscle strength testing, there is no pronator drift and the strength appears normal in the arms and legs distally and proximally. No ataxia. Reflexes are symmetric. Tone and bulk of muscles normal. Results - Laboratory Findings CBC and BMP: 10/28/19 03:05 10/28/19 03:05 Abnormal Lab Findings: Abnormal Labs 10/28/19 10/28/19 10/28/19 03:05 04:19 07:54 Sodium 135 L Chloride 97 L BUN 18 H Creatinine 0.47 L Glucose 156 H POC Glucose (mg/dL) 156 H Urine Appearance Cloudy H Urine Protein 1+ H Urine Ketones 2+ H Ur Leukocyte Esterase Moderate H Urine WBC 33 H Urine Mucus Few H 10/28/19 11:37 Sodium Chloride BUN Creatinine Glucose POC Glucose (mg/dL) 221 H Urine Appearance Urine Protein Urine Ketones Ur Leukocyte Esterase Urine WBC Urine Mucus Assessment and Plan Assessment: * Status migrainosus. * Chronic migraines, medically intractable. * History of bilateral occipital neuralgia, currently stable. * Diabetes poorly controlled * COPD, * Fibromyalgia * Hypertension. Plan: * Patient has very severe migraine. She looks comfortable however. Patient is requesting for Dilaudid, although she has been tried on Dilaudid 0.5 mg 3 today without resolution of headache. Patient will try Fioricet, and resume Neurontin 200 mg twice a day. Patient has been started on [place] , but patient states that "it does not touch the headache". * Patient cannot take Triptans or DHE because of her age and CAD. * Patient states that she did not notice any improvement with Aimovig. I would suggest trying Emgality as outpatient.
[2019-10-28 20:31] LABS: Glucose,Whole Blood 254 mg/dL (75-99)
[2019-10-28] MEDS: METOPROLOL SUCCINATE (ER) 50 MG TAB.ER.24H PO SCH (20:58)
[2019-10-28] MEDS: GABAPENTIN 100 MG CAP PO SCH (20:59)
[2019-10-28] MEDS: ATORVASTATIN 40 MG TAB PO SCH (20:59)
[2019-10-28] MEDS ORDERED: INSULIN DETEMIR (LEVEMIR) 100 UNIT/ML SYR SQ SCH (21:00)
--- NOTE | 2019-10-28 21:07 | P.HPIM ---
History of Present Illness H&P Date: 10/28/19 Chief Complaint: headache Melissa Pena is a 69 yo F with PMH of severe intractable migraine with multiple recent admissions for the same, most recent discharged 09/24/2019. After discharge she did follow up in clinic and was given an injection of aimovig. She states that over the past week or so she began to experience severe unrelenting R sided headache. She did try to take compazine, benadryl and magnesium at home a few times without relief. She was due for her second injection of aimovig this week, but overall does not feel it made any difference. She has not been taking the gabapentin or topamax due to side effects. She currently complains of headache so severe that she has not had any appetite and has vomited multiple times in the past few days. In the ED, her vitals were stable, labs unremarkable with exception of urine leukocytes, pt did require dilaudid x2 for her pain to subside and to be able to sleep. This morning she again complains of 10/10 headache and feels dilaudid is the only thing that can help it. Review of Systems All systems: negative Constitutional: Denies chills, Denies fever Eyes: denies blurred vision, denies pain Ears, nose, mouth and throat: Denies headache, Denies sore throat Cardiovascular: Denies chest pain, Denies shortness of breath Respiratory: Denies cough Gastrointestinal: Denies abdominal pain, Denies diarrhea, Denies nausea, Denies vomiting Genitourinary: Denies dysuria, Denies hematuria Musculoskeletal: Denies myalgias Integumentary: Denies pruritus, Denies rash Neurological: Reports headaches, Reports migraines, Denies numbness, Denies weakness Psychiatric: Denies anxiety, Denies depression Endocrine: Denies fatigue, Denies weight change Past Medical History Past Medical History: COPD, Diabetes Mellitus, Deep Vein Thrombosis (DVT), Fibromyalgia, Hyperlipidemia, Hypertension, Osteoarthritis (OA), Pneumonia, Renal Disease, Sleep Apnea/CPAP/BIPAP, Vascular Disorder Additional Past Medical History / Comment(s): bronchitis, Cpap, UTIs, UTI with sepsis, pyelonephritis/sepsis, nephrolithiasis and has had renal failure d/t blockages, adrenal insufficiency, hyperparathyroidism-recently saw specialist an d will have surgery once her health improves, arthritis in multiple joints, DJD, past bilateral pelvic fractures, 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, R wrist/elbow nerve repair, bone removed R shoulder, 4th toe R foot partial amputation, bilateral feet/bunionectomies, R knee arthroscopies, R orbit decompression with ethmoidectomy and eyelid lift, EGD, colonoscopies, cystocop ies, lithotripsy/stents, total hysterectomy, bilateral breast reduction, bilateral cataract removals.Parathyroid surgery - April 2019, pain clinic procedures Past Anesthesia/Blood Transfusion Reactions: No Reported Reaction Additional Past Anesthesia/Blood Transfusion Reaction / Comment(s): never recieved blood Past Psychological History: No Psychological Hx Reported Additional Psychological History / Comment(s): Pt resides with her spouse. She uses a walker if out shopping. She drives. She has a nebulizer, cpap, bsc, shower chair, bp machine, dexcom monitor system for her bs. Smoking Status: Never smoker Past Alcohol Use History: Occasional Additional Past Alcohol Use History / Comment(s): no alcohol Past Drug Use History: None Reported - Past Family History Father Family Medical History: Coronary Artery Disease (CAD), CVA/TIA, Diabetes Mellitus, Myocardial Infarction ([place]), Pneumonia Additional Family Medical History / Comment(s): Father at the age of 78yrs from [place] and pneumonia. Mother Family Medical History: Cancer Additional Family Medical History / Comment(s): Mother had uterine cancer. She recently at the age of 96yrs old. Medications and Allergies Home Medications Medication Instructions Recorded Confirmed Type Cholecalciferol [Vitamin D3 (25 3,000 unit PO DAILY@0700 12/01/15 10/28/19 History Mcg = 1000 Iu)] Metoprolol Succinate (ER) [Toprol 50 mg PO HS 07/06/17 10/28/19 History XL] Meclizine [Antivert] 25 mg PO TID PRN 11/26/17 10/28/19 History Hydrocortisone [Cortef] 15 mg PO AC-BRKFST 05/18/18 10/28/19 History Hydrocortisone [Cortef] 5 mg PO HS 06/26/18 10/28/19 History Aspirin 81 mg PO DAILY #0 07/02/18 10/28/19 Rx Glucagon Emergency Kit 1 mg IM ONCE PRN 08/12/18 10/28/19 History Cranberry 300mg 300 mg PO BID 10/08/18 10/28/19 History Ferrous Sulfate [Iron (65 MG 325 mg PO DAILY 10/08/18 10/28/19 History Elemental)] Folic Acid 0.4 mg PO DAILY 10/08/18 10/28/19 History L.acidoph,Paracasei, B.lactis 2 cap PO BID 10/08/18 10/28/19 History [Probiotic] Melatonin 5 mg PO HS PRN 10/08/18 10/28/19 History Multivitamins, Thera Liquid 30 ml PO DAILY 10/08/18 10/28/19 History [Theragran Liquid (formulary)] Potassium 99 mg PO DAILY 10/08/18 10/28/19 History Thiamine [Vitamin B-1] 100 mg PO DAILY 10/08/18 10/28/19 History Vitamin B-Complex Drops 1 drop PO BID 10/08/18 10/28/19 History Lisinopril [Zestril] 15 mg PO QAM 11/08/18 10/28/19 History Atorvastatin [Lipitor] 40 mg PO HS #30 tab 11/16/18 10/28/19 Rx HYDROcodone/APAP 10-325MG [[place] 1 tab PO TID PRN 12/26/18 10/28/19 History 10-325] Insulin Glargine [Lantus] 26 unit SQ HS 01/29/19 10/28/19 History Pantoprazole [Protonix] 40 mg PO DAILY 01/29/19 10/28/19 History Venlafaxine HCl [Effexor] 75 mg PO DAILY 03/12/19 10/28/19 History Hydrocortisone [Cortef] 10 mg PO AC-LUNCH 08/30/19 10/28/19 History Brimonidine Tartrate [Alphagan P 1 drops RIGHT EYE BID 08/31/19 10/28/19 History 0.2% Ophth Soln] Acetaminophen [Tylenol Extra 1,000 mg PO DAILY PRN 09/12/19 10/28/19 History Strength] Prochlorperazine [Compazine] 10 mg PO BID PRN #20 tab 09/14/19 10/28/19 Rx Magnesium Oxide [Mag-Ox] 400 mg PO BID #1 tab 09/16/19 10/28/19 Rx Insulin Aspart [NovoLOG Flexpen] 18 units SQ AC-LUNCH #0 09/24/19 10/28/19 Rx Insulin Aspart [NovoLOG Flexpen] 22 units SQ AC-SUPPER #0 09/24/19 10/28/19 Rx Insulin Aspart [NovoLOG Flexpen] 14 units SQ AC-BRKFST 10/28/19 10/28/19 History Metoclopramide [Reglan] 5 mg PO DAILY PRN 10/28/19 10/28/19 History Allergies Allergy/AdvReac Type Severity Reaction Status Date / Time butorphanol tartrate Allergy BLISTERS Verified 10/28/19 07:56 [From Stadol] IN MOUTH ceftriaxone [From Rocephin] Allergy Unknown Verified 10/28/19 07:56 clarithromycin [From Biaxin] Allergy Rash/Hives Verified 10/28/19 07:56 codeine Allergy Rash/Hives Verified 10/28/19 07:56 ergotamine tartrate Allergy Unknown Verified 10/28/19 07:56 [From Cafergot] erythromycin base Allergy RASH, GI Verified 10/28/19 07:56 [From E-Mycin] SYMPTOMS ketorolac tromethamine Allergy Rash/Hives Verified 10/28/19 07:56 [From Toradol] liraglutide [From Victoza] Allergy Rash/Hives Verified 10/28/19 07:56 morphine Allergy Rash/Hives Verified 10/28/19 07:56 Penicillins Allergy Rash/Hives Verified 10/28/19 07:56 pentazocine lactate Allergy SEVERE Verified 10/28/19 07:56 [From Talwin] BLISTERS IN MOUTH pregabalin [From Lyrica] Allergy Rash/Hives Verified 10/28/19 07:56 propoxyphene HCl Allergy Rash/Hives Verified 10/28/19 07:56 [From Darvon] Sulfa (Sulfonamide Allergy Rash/Hives Verified 10/28/19 07:56 Antibiotics) tramadol Allergy Unknown Verified 10/28/19 07:56 monosodium glutamate [MSG] AdvReac Nausea & Verified 10/28/19 07:56 Vomiting nalbuphine HCl [From Nubain] AdvReac Nausea & Verified 10/28/19 07:56 Vomiting Physical Exam Vitals: Vital Signs Temp Pulse Pulse Resp BP BP Pulse Ox 10/28/19 19:37 98.7 F 117 H 18 173/88 95 10/28/19 14:37 99.4 F 114 H 17 149/79 90 L 10/28/19 07:00 98.6 F 79 16 129/76 93 L 10/28/19 06:45 70 16 165/97 98 10/28/19 06:15 70 16 137/94 97 10/28/19 05:45 72 16 130/82 97 10/28/19 05:30 70 16 134/72 95 10/28/19 05:15 69 16 111/62 96 10/28/19 04:45 72 16 171/103 98 10/28/19 04:15 71 16 163/104 98 10/28/19 03:45 90 16 160/105 100 10/28/19 02:59 99.3 F 118 H 18 177/107 98 Intake and Output 10/28/19 10/28/19 10/28/19 06:59 14:59 22:59 Intake Total 230 Balance 230 Intake: Intake, IV Titration 230 Amount Magnesium Sulfate-D5w Pmx 100 1 gm In Dextrose/Water 1 100ml.bag @ 100 mls/hr IVPB ONCE ONE Rx#: [id number] Sodium Chloride 0.9% 1, 80 000 ml @ 20 mls/hr IV . Q24H [facility] Rx#:[id number] cefTRIAXone 1 gm In 50 Sodium Chloride 0.9% 50 ml @ 100 mls/hr IVPB ONCE STA Rx#:[id number] Other: Voiding Method Toilet # Voids 3 Weight 64.864 kg 64.864 kg General: well nourished, well developed, NAD. Vitals reviewed Eyes: PERRL, EOMI, conjunctiva normal HENT: normocephalic, mucus membranes moist Neck: supple, no JVD Lungs: normal respiratory effort, no wheezes or rales CV: Regular rate and rhythm, no murmur. Peripheral pulses 2+ Abdomen: soft, nondistended, no organomegaly Lymph: no cervical or axillary LAD Skin: warm and dry. Neuro: A&Ox3, normal mood and affect Results CBC & Chem 7: 10/28/19 03:05 10/28/19 03:05 Labs: Abnormal Lab Results - Last 24 Hours (Table) 10/28/19 10/28/19 10/28/19 Range/Units 03:05 04:19 07:54 Sodium 135 L (137-145) mmol/L Chloride 97 L (98-107) mmol/L BUN 18 H (7-17) mg/dL Creatinine 0.47 L (0.52-1.04) mg/dL Glucose 156 H (74-99) mg/dL POC Glucose (mg/dL) 156 H (75-99) mg/dL Urine Appearance Cloudy H (Clear) Urine Protein 1+ H (Negative) Urine Ketones 2+ H (Negative) Ur Leukocyte Esterase Moderate H (Negative) Urine WBC 33 H (0-5) /hpf Urine Mucus Few H (None) /hpf 10/28/19 10/28/19 10/28/19 Range/Units 11:37 16:42 20:30 Sodium (137-145) mmol/L Chloride (98-107) mmol/L BUN (7-17) mg/dL Creatinine (0.52-1.04) mg/dL Glucose (74-99) mg/dL POC Glucose (mg/dL) 221 H 283 H 254 H (75-99) mg/dL Urine Appearance (Clear) Urine Protein (Negative) Urine Ketones (Negative) Ur Leukocyte Esterase (Negative) Urine WBC (0-5) /hpf Urine Mucus (None) /hpf Microbiology - Last 24 Hours (Table) 10/28/19 04:19 Urine Culture - Preliminary Urine,Voided Thrombosis Risk Factor Assmnt - Choose All That Apply Any of the Below Risk Factors Present?: Yes Each Factor Represents 1 point: Abnormal pulmonary function (COPD), Obesity (BMI >25) Other Risk Factors: Yes Each Risk Factor Represents 2 Points: Age 61-74 years Each Risk Factor Represents 3 Points: History of DVT/PE Thrombosis Risk Factor Assessment Total Risk Factor Score: 7 Thrombosis Risk Factor Assessment Level: High Risk Assessment and Plan (1) Intractable migraine with aura with status migrainosus Current Visit: Yes Status: Acute Code(s): G43.111 - MIGRAINE WITH AURA, INTRACTABLE, WITH STATUS MIGRAINOSUS SNOMED Code(s): 839551163 (2) Adrenal insufficiency Current Visit: Yes Status: Acute Code(s): E27.40 - UNSPECIFIED ADRENOCORTICAL INSUFFICIENCY SNOMED Code(s): 032505761 (3) Acute cystitis Current Visit: Yes Status: Acute Code(s): N30.00 - ACUTE CYSTITIS WITHOUT HEMATURIA SNOMED Code(s): 28678319 (4) DM type 2 (diabetes mellitus, type 2) Current Visit: No Status: Chronic Code(s): E11.9 - TYPE 2 DIABETES MELLITUS WITHOUT COMPLICATIONS SNOMED Code(s): 39735029 Plan: 1. Status migranosus. Neurology consult. IV magnesium and compazine. Dilaudid once. Recommend she continue to take the topamax and gabapentin. Recommend she proceed with CGRP antagonist outpatient. Treat nausea/vomiting with scopolamine patch 2. Adrenal insufficiency. IV solumedrol today, resume cortef tomorrow 3. T2DM. Accucheck, sliding scale 4. HTN. Continue lisinopril 5. Acute cystitis. Rocephin x1 dose
[2019-10-28] MEDS: MELATONIN 5 MG TABLET PO PRN (22:25)
[2019-10-29 02:18] LABS: Glucose,Whole Blood 279 mg/dL (75-99)
[2019-10-29] MEDS: BUTALB/APAP/CAFF 50-325-40MG TAB PO PRN ×2 (05:46→22:12)
[2019-10-29] MEDS: SODIUM CHLORIDE 0.9% 1,000 ML IV SCH (05:47)
[2019-10-29 06:50] LABS: Glucose,Whole Blood 320 mg/dL (75-99)
[2019-10-29] MEDS: BRIMONIDINE TARTRATE 0.2% DROPS 5 ML BTL RIGHT EYE SCH ×2 (07:34→22:14)
[2019-10-29] MEDS: methylPREDNISolone SOD SUCCI 40 MG/ML 1 ML VIAL IV SCH ×2 (07:34→22:13)
[2019-10-29] MEDS: HYDROCORTISONE 10 MG TAB PO SCH ×3 (07:35→22:11)
[2019-10-29] MEDS: INSULIN ASPART (NovoLOG) 100 UNIT/ML VIAL SQ SCH ×3 (07:35→17:39)
[2019-10-29] MEDS: LISINOPRIL 5 MG TAB PO SCH (07:36)
[2019-10-29] MEDS: VENLAFAXINE HCL 75 MG TAB PO SCH (07:36)
[2019-10-29] MEDS: THIAMINE 100 MG TAB PO SCH (07:36)
[2019-10-29] MEDS: MAGNESIUM OXIDE 400 MG TAB PO SCH ×2 (07:36→22:12)
[2019-10-29] MEDS: GABAPENTIN 100 MG CAP PO SCH ×3 (07:36→22:12)
[2019-10-29] MEDS: FERROUS SULFATE 325 MG TAB PO SCH (07:37)
[2019-10-29] MEDS: ASPIRIN 81 MG PO SCH (07:37)
[2019-10-29] MEDS: CHOLECALCIFEROL 1,000 UNIT TAB PO SCH (07:37)
[2019-10-29] MEDS: FOLIC ACID 1 MG TAB PO SCH (07:37)
[2019-10-29] MEDS: PANTOPRAZOLE 40 MG TABLET PO SCH (07:37)
[2019-10-29] MEDS: HYDROcodone/APAP 10-325MG 1 EACH TAB PO PRN ×2 (07:57→17:38)
[2019-10-29] MEDS ORDERED: MAGNESIUM SULFATE-D5W PMX 1 GM in DEXTROSE/WATER 1 100ML.BAG IVPB ONE (11:25)
[2019-10-29] MEDS ORDERED: diphenhydrAMINE 50 MG/ML 1 ML VIAL IVP STA (11:26)
[2019-10-29] MEDS ORDERED: ACETAMINOPHEN IV (For NPO) 1,000 MG in EMPTY BAG 1 BAG IVPB STA (11:30)
[2019-10-29 11:36] LABS: Glucose,Whole Blood 371 mg/dL (75-99)
--- NOTE | 2019-10-29 15:29 | P.PN ---
Subjective Progress Note Date: 10/29/19 Melissa Pena is a 69 yo F with PMH of severe intractable migraine with multiple recent admissions for the same, most recent discharged 09/24/2019. After discharge she did follow up in clinic and was given an injection of aimovig. She states that over the past week or so she began to experience severe unrelenting R sided headache. She did try to take compazine, benadryl and magnesium at home a few times without relief. She was due for her second injection of aimovig this week, but overall does not feel it made any difference. She has not been taking the gabapentin or topamax due to side effects. She currently complains of headache so severe that she has not had any appetite and has vomited multiple times in the past few days. In the ED, her vitals were stable, labs unremarkable with exception of urine leukocytes, pt did require dilaudid x2 for her pain to subside and to be able to sleep. This morning she again complains of 10/10 headache and feels dilaudid is the only thing that can help it. 10/29/2019 evaluated by neurology with recommendations noted and appreciated. No further Dilaudid recommended. Slept well. Reporting right sided headache and neck pain returning this morning. No nausea or vomiting. Has not required Zofran since last night. It required only 1 dose of Compazine yesterday. Hyperglycemia, maintained on IV steroids. Denies chest pain, palpitations or shortness of breath. Objective - Vital Signs Vital signs: Vital Signs Temp 98.4 F 10/29/19 14:35 Pulse 71 10/29/19 14:35 Resp 16 10/29/19 14:35 BP 93/55 10/29/19 14:35 Pulse Ox 95 10/29/19 14:35 Intake & Output 10/28/19 10/29/19 10/29/19 18:59 06:59 18:59 Intake Total 558 91 7119 Balance 994 92 4097 Weight 64.864 kg Intake: Intake, IV Titration 230 60 80 Amount Magnesium Sulfate-D5w Pmx 100 1 gm In Dextrose/Water 1 100ml.bag @ 100 mls/hr IVPB ONCE ONE Rx#: [id number] Sodium Chloride 0.9% 1, 80 60 80 000 ml @ 20 mls/hr IV . Q24H [facility] Rx#:[id number] cefTRIAXone 1 gm In 50 Sodium Chloride 0.9% 50 ml @ 100 mls/hr IVPB ONCE STA Rx#:[id number] Oral 1815 Other: Voiding Method Toilet Toilet # Voids 3 4 1 - Exam General: Lying in bed, no acute distress Eyes: PERRL, EOMI, conjunctiva normal HENT: normocephalic, mucus membranes moist Neck: supple, no JVD Lungs: normal respiratory effort, no wheezes or rales CV: Regular rate and rhythm, no murmur. Peripheral pulses 2+ Abdomen: soft, nondistended, no organomegaly Lymph: no cervical or axillary LAD Skin: warm and dry. Neuro: A&Ox3, normal mood and affect - Labs CBC & Chem 7: 10/28/19 03:05 10/28/19 03:05 Labs: Abnormal Lab Results - Last 24 Hours (Table) 10/28/19 10/28/19 10/29/19 Range/Units 16:42 20:30 02:17 POC Glucose (mg/dL) 283 H 254 H 279 H (75-99) mg/dL 10/29/19 10/29/19 Range/Units 06:49 11:35 POC Glucose (mg/dL) 320 H 371 H (75-99) mg/dL Microbiology - Last 24 Hours (Table) 10/28/19 04:19 Urine Culture - Final Urine,Voided Assessment and Plan Assessment: (1) Intractable migraine with aura with status migrainosus Current Visit: Yes Status: Acute Code(s): G43.111 - MIGRAINE WITH AURA, INTRACTABLE, WITH STATUS MIGRAINOSUS SNOMED Code(s): 772158869 (2) Adrenal insufficiency Current Visit: Yes Status: Acute Code(s): E27.40 - UNSPECIFIED ADRENOCORTICAL INSUFFICIENCY SNOMED Code(s): 307706503 (3) Acute cystitis Current Visit: Yes Status: Acute Code(s): N30.00 - ACUTE CYSTITIS WITHOUT HEMATURIA SNOMED Code(s): 89820132 (4) DM type 2 (diabetes mellitus, type 2), hyperglycemia, steroid-induced Current Visit: No Status: Chronic Code(s): E11.9 - TYPE 2 DIABETES MELLITUS WITHOUT COMPLICATIONS SNOMED Code(s): 48869623 (5) acute cystitis, status post Rocephin. Plan: Continue on current medication regime ,monitoring and symptomatic treatment. Repeat magnesium 1 mg IVP, Tylenol IV, Benadryl IV this morning. Neurology recommending patient try [facility], outpatient. Patient states it worked for her before but her co-pay was high. 's office will initiate insurance authorization and assist patient via the medications patient assistance program and attempt to hopefully obtain a lower co-pay. Lantus increased, close monitoring of Accu-Cheks. Discharge planning in progress for tomorrow. The impression and plan of care has been dictated as directed. : I performed a history and examination of this patient, discussed the same with the dictator. I agree with the dictator's note ,documented as a scribe. Any additional findings or plans will be noted.
[2019-10-29 16:26] LABS: Glucose,Whole Blood 190 mg/dL (75-99)
[2019-10-29] MEDS ORDERED: INSULIN DETEMIR (LEVEMIR) 100 UNIT/ML SYR SQ SCH (21:00)
[2019-10-29 21:55] LABS: Glucose,Whole Blood 111 mg/dL (75-99)
[2019-10-29] MEDS: MELATONIN 5 MG TABLET PO PRN (22:11)
[2019-10-29] MEDS: ATORVASTATIN 40 MG TAB PO SCH (22:12)
[2019-10-29] MEDS: METOPROLOL SUCCINATE (ER) 50 MG TAB.ER.24H PO SCH (22:12)
[2019-10-30 03:28] LABS: Glucose,Whole Blood 291 mg/dL (75-99)
[2019-10-30] MEDS: BUTALB/APAP/CAFF 50-325-40MG TAB PO PRN ×3 (03:38→14:57)
[2019-10-30] MEDS: SODIUM CHLORIDE 0.9% 1,000 ML IV SCH (03:39)
[2019-10-30 07:18] LABS: Glucose,Whole Blood 248 mg/dL (75-99)
[2019-10-30] MEDS: CHOLECALCIFEROL 1,000 UNIT TAB PO SCH (07:42)
[2019-10-30] MEDS: HYDROCORTISONE 10 MG TAB PO SCH ×2 (07:42→12:06)
[2019-10-30] MEDS: INSULIN ASPART (NovoLOG) 100 UNIT/ML VIAL SQ SCH ×2 (07:42→12:07)
[2019-10-30 08:08] VITALS: BP 125/68; PULSE 60; RESP 16; TEMP 98
[2019-10-30] MEDS: FERROUS SULFATE 325 MG TAB PO SCH (08:36)
[2019-10-30] MEDS: VENLAFAXINE HCL 75 MG TAB PO SCH (08:36)
[2019-10-30] MEDS: methylPREDNISolone SOD SUCCI 40 MG/ML 1 ML VIAL IV SCH (08:36)
[2019-10-30] MEDS: GABAPENTIN 100 MG CAP PO SCH (08:36)
[2019-10-30] MEDS: ASPIRIN 81 MG PO SCH (08:37)
[2019-10-30] MEDS: LISINOPRIL 5 MG TAB PO SCH (08:37)
[2019-10-30] MEDS: THIAMINE 100 MG TAB PO SCH (08:37)
[2019-10-30] MEDS: MAGNESIUM OXIDE 400 MG TAB PO SCH (08:37)
[2019-10-30] MEDS: PANTOPRAZOLE 40 MG TABLET PO SCH (08:37)
[2019-10-30] MEDS: FOLIC ACID 1 MG TAB PO SCH (08:37)
[2019-10-30] MEDS: BRIMONIDINE TARTRATE 0.2% DROPS 5 ML BTL RIGHT EYE SCH (08:38)
[2019-10-30] MEDS ORDERED: diphenhydrAMINE 50 MG/ML 1 ML VIAL IVP STA (09:29)
[2019-10-30] MEDS ORDERED: ACETAMINOPHEN IV (For NPO) 1,000 MG in EMPTY BAG 1 BAG IVPB ONE (09:45)
[2019-10-30] MEDS ORDERED: MAGNESIUM SULFATE-D5W PMX 1 GM in DEXTROSE/WATER 1 100ML.BAG IVPB ONE (10:00)
--- NOTE | 2019-10-30 10:14 | P.DS ---
Providers Date of admission: 10/30/19 08:04 Expected date of discharge: 10/30/19 Attending physician: Andrew Gonsales MD Consults: 10/28/19 09:16 Consult Physician Routine Consulting Provider: Alison Carvajal Consult Reason/Comments: intractable migraine Do you want consulting provider notified?: Yes Primary care physician: Andrew Gonsales MD Hospital Course: Final Diagnoses: (1) Intractable migraine with aura with status migrainosus Current Visit: Yes Status: Acute Code(s): G43.111 - MIGRAINE WITH AURA, INTRACTABLE, WITH STATUS MIGRAINOSUS SNOMED Code(s): 389528779 (2) Adrenal insufficiency Current Visit: Yes Status: Acute Code(s): E27.40 - UNSPECIFIED ADRENOCORTICAL INSUFFICIENCY SNOMED Code(s): 845701025 (3) Acute cystitis Current Visit: Yes Status: Acute Code(s): N30.00 - ACUTE CYSTITIS WITHOUT HEMATURIA SNOMED Code(s): 46911736 (4) DM type 2 (diabetes mellitus, type 2), hyperglycemia, steroid-induced Current Visit: No Status: Chronic Code(s): E11.9 - TYPE 2 DIABETES MELLITUS WITHOUT COMPLICATIONS SNOMED Code(s): 53034346 (5) acute cystitis, status post Rocephin. Hospital course:Melissa Pena is a 69 yo F with PMH of severe intractable migraine with multiple recent admissions for the same, most recent discharged 09/24/2019. After discharge she did follow up in clinic and was given an injection of aimovig. She states that over the past week or so she began to experience severe unrelenting R sided headache. She did try to take compazine, benadryl and magnesium at home a few times without relief. She was due for her second injection of aimovig this week, but overall does not feel it made any difference. She has not been taking the gabapentin or topamax due to side effects. She currently complains of headache so severe that she has not had any appetite and has vomited multiple times in the past few days. In the ED, her vitals were stable, labs unremarkable with exception of urine leukocytes, pt did require dilaudid x2 for her pain to subside and to be able to sleep. This morning she again complains of 10/10 headache and feels dilaudid is the only thing that can help it. 10/29/2019 evaluated by neurology with recommendations noted and appreciated. No further Dilaudid recommended. Slept well. Reporting right sided headache and neck pain returning this morning. No nausea or vomiting. Has not required Zofran since last night. It required only 1 dose of Compazine yesterday. Hyperglycemia, maintained on IV steroids. Denies chest pain, palpitations or shortness of breath. Received headache cocktail of magnesium, Tylenol, Benadryl.Neurology recommending patient try Emgality, outpatient. Patient states it worked for her before but her co-pay was high. 's office will initiate insurance authorization and assist patient via the medications patient assistance program and attempt to hopefully obtain a lower co-pay. Significant clinical improvement. Cleared by neurology for discharge. Patient is being discharged home in a stable condition with guarded prognosis. The impression and plan of care has been dictated as directed. : I performed a history and examination of this patient, discussed the same with the dictator. I agree with the dictator's note ,documented as a scribe. Any additional findings or plans will be noted. Patient Condition at Discharge: Stable Plan - Discharge Summary Discharge Rx Participant: No New Discharge Prescriptions: New Prochlorperazine [Compazine] 5 mg PO TID tab Gabapentin [Neurontin] 200 mg PO TID #18 cap Ondansetron HCl [Zofran] 4 mg PO Q8H PRN #30 tab PRN Reason: Nausea And Vomiting Butalb/APAP/Caff 50-325-40Mg [Fioricet 50-325-40] 1 tab PO Q4H PRN #18 tablet PRN Reason: Headache Continue Cholecalciferol [Vitamin D3 (25 Mcg = 1000 Iu)] 3,000 unit PO DAILY@0700 Metoprolol Succinate (ER) [Toprol XL] 50 mg PO HS Meclizine [Antivert] 25 mg PO TID PRN PRN Reason: Vertigo Hydrocortisone [Cortef] 15 mg PO AC-BRKFST Hydrocortisone [Cortef] 5 mg PO HS Aspirin 81 mg PO DAILY #0 Glucagon Emergency Kit 1 mg IM ONCE PRN PRN Reason: Hypoglycemia Ferrous Sulfate [Iron (65 MG Elemental)] 325 mg PO DAILY Vitamin B-Complex Drops 1 drop PO BID Thiamine [Vitamin B-1] 100 mg PO DAILY Folic Acid 0.4 mg PO DAILY Multivitamins, Thera Liquid [Theragran Liquid (formulary)] 30 ml PO DAILY L.acidoph,Paracasei, B.lactis [Probiotic] 2 cap PO BID Melatonin 5 mg PO HS PRN PRN Reason: Insomnia Cranberry 300mg 300 mg PO BID Potassium 99 mg PO DAILY Lisinopril [Zestril] 15 mg PO QAM Atorvastatin [Lipitor] 40 mg PO HS #30 tab HYDROcodone/APAP 10-325MG [[place] 10-325] 1 tab PO TID PRN PRN Reason: Pain Pantoprazole [Protonix] 40 mg PO DAILY Insulin Glargine [Lantus] 26 unit SQ HS Venlafaxine HCl [Effexor] 75 mg PO DAILY Hydrocortisone [Cortef] 10 mg PO AC-LUNCH Brimonidine Tartrate [Alphagan P 0.2% Ophth Soln] 1 drops RIGHT EYE BID Acetaminophen [Tylenol Extra Strength] 1,000 mg PO DAILY PRN PRN Reason: Migraine Headache Magnesium Oxide [Mag-Ox] 400 mg PO BID #1 tab Insulin Aspart [NovoLOG Flexpen] 18 units SQ AC-LUNCH #0 Insulin Aspart [NovoLOG Flexpen] 22 units SQ AC-SUPPER #0 Insulin Aspart [NovoLOG Flexpen] 14 units SQ AC-BRKFST Metoclopramide [Reglan] 5 mg PO DAILY PRN PRN Reason: migraine headaches Discontinued Prochlorperazine [Compazine] 10 mg PO BID PRN #20 tab PRN Reason: Headache Discharge Medication List Cholecalciferol [Vitamin D3 (25 Mcg = 1000 Iu)] 3,000 unit PO DAILY@0700 12/01/14 [History] Metoprolol Succinate (ER) [Toprol XL] 50 mg PO HS 07/06/17 [History] Meclizine [Antivert] 25 mg PO TID PRN 11/26/17 [History] Hydrocortisone [Cortef] 15 mg PO AC-BRKFST 05/18/18 [History] Hydrocortisone [Cortef] 5 mg PO HS 06/26/18 [History] Aspirin 81 mg PO DAILY #0 07/02/18 [Rx] Glucagon Emergency Kit 1 mg IM ONCE PRN 08/12/18 [History] Cranberry 300mg 300 mg PO BID 10/08/18 [History] Ferrous Sulfate [Iron (65 MG Elemental)] 325 mg PO DAILY 10/08/18 [History] Folic Acid 0.4 mg PO DAILY 10/08/18 [History] L.acidoph,Paracasei, B.lactis [Probiotic] 2 cap PO BID 10/08/18 [History] Melatonin 5 mg PO HS PRN 10/08/18 [History] Multivitamins, Thera Liquid [Theragran Liquid (formulary)] 30 ml PO DAILY 10/08/18 [History] Potassium 99 mg PO DAILY 10/08/18 [History] Thiamine [Vitamin B-1] 100 mg PO DAILY 10/08/18 [History] Vitamin B-Complex Drops 1 drop PO BID 10/08/18 [History] Lisinopril [Zestril] 15 mg PO QAM 11/08/18 [History] Atorvastatin [Lipitor] 40 mg PO HS #30 tab 11/16/18 [Rx] HYDROcodone/APAP 10-325MG [[place] 10-325] 1 tab PO TID PRN 12/26/18 [History] Insulin Glargine [Lantus] 26 unit SQ HS 01/29/19 [History] Pantoprazole [Protonix] 40 mg PO DAILY 01/29/19 [History] Venlafaxine HCl [Effexor] 75 mg PO DAILY 03/12/19 [History] Hydrocortisone [Cortef] 10 mg PO AC-LUNCH 08/30/19 [History] Brimonidine Tartrate [Alphagan P 0.2% Ophth Soln] 1 drops RIGHT EYE BID 08/31/19 [History] Acetaminophen [Tylenol Extra Strength] 1,000 mg PO DAILY PRN 09/12/19 [History] Magnesium Oxide [Mag-Ox] 400 mg PO BID #1 tab 09/16/19 [Rx] Insulin Aspart [NovoLOG Flexpen] 18 units SQ AC-LUNCH #0 09/24/19 [Rx] Insulin Aspart [NovoLOG Flexpen] 22 units SQ AC-SUPPER #0 09/24/19 [Rx] Insulin Aspart [NovoLOG Flexpen] 14 units SQ AC-BRKFST 10/28/19 [History] Metoclopramide [Reglan] 5 mg PO DAILY PRN 10/28/19 [History] Butalb/APAP/Caff 50-325-40Mg [Fioricet 50-325-40] 1 tab PO Q4H PRN #18 tablet 10/30/19 [Rx] Gabapentin [Neurontin] 200 mg PO TID #18 cap 10/30/19 [Rx] Ondansetron HCl [Zofran] 4 mg PO Q8H PRN #30 tab 10/30/19 [Rx] Prochlorperazine [Compazine] 5 mg PO TID tab 10/30/19 [Rx] Follow up Appointment(s)/Referral(s): Andrew Gonsales MD [Primary Care Provider] - 3 Days Activity/Diet/Wound Care/Special Instructions: Neurology recommending patient try Emgality, outpatient. Patient states it worked for her before but her co-pay was high. 's office will initiate insurance authorization and assist patient via the medications patient assistance program and attempt to hopefully obtain a lower co-pay. Outpatient nerve block with Dr. Gonsales
[2019-10-30 11:31] LABS: Glucose,Whole Blood 238 mg/dL (75-99)
--- NOTE | 2019-10-30 12:31 | P.PN ---
Subjective Progress Note Date: 10/29/19 Patient states that she is feeling better. At present her headache is 6/10. Patient states that she slept well from 11 PM to 6 AM. She also received a cocktail. Before she received cocktail, her headache was 8/10. She is due for Fioricet now. She thinks Fioricet is helping. Objective - Vital Signs Vital signs: Vital Signs Temp 98.4 F 10/29/19 14:35 Pulse 71 10/29/19 14:35 Resp 16 10/29/19 14:35 BP 93/55 10/29/19 14:35 Pulse Ox 95 10/29/19 14:35 Intake & Output 10/28/19 10/29/19 10/29/19 18:59 06:59 18:59 Intake Total 349 23 0452 Balance 444 42 9072 Weight 64.864 kg Intake: Intake, IV Titration 230 60 80 Amount Magnesium Sulfate-D5w Pmx 100 1 gm In Dextrose/Water 1 100ml.bag @ 100 mls/hr IVPB ONCE ONE Rx#: [id number] Sodium Chloride 0.9% 1, 80 60 80 000 ml @ 20 mls/hr IV . Q24H KIARA Rx#:[id number] cefTRIAXone 1 gm In 50 Sodium Chloride 0.9% 50 ml @ 100 mls/hr IVPB ONCE STA Rx#:[id number] Oral 1815 Other: Voiding Method Toilet Toilet # Voids 3 4 1 - Exam Mental status, speech and language functions, cranial nerves are normal. Muscle strength normal. - Labs CBC & Chem 7: 10/28/19 03:05 10/28/19 03:05 Labs: Abnormal Lab Results - Last 24 Hours (Table) 10/28/19 10/29/19 10/29/19 Range/Units 20:30 02:17 06:49 POC Glucose (mg/dL) 254 H 279 H 320 H (75-99) mg/dL 10/29/19 10/29/19 Range/Units 11:35 16:25 POC Glucose (mg/dL) 371 H 190 H (75-99) mg/dL Microbiology - Last 24 Hours (Table) 10/28/19 04:19 Urine Culture - Final Urine,Voided Assessment and Plan Assessment: * Status migrainosus. * Chronic migraines, medically intractable. * History of bilateral occipital neuralgia, currently stable. * Diabetes poorly controlled * COPD, * Fibromyalgia * Hypertension. Plan: * Continue Fioricet as needed, and resume Neurontin 200 mg 3 times a day. Patient has been started on [place] 10/325, but patient states that "it does not touch the headache". * Patient cannot take Triptans or DHE because of her age and CAD. * Patient states that she did not notice any improvement with Aimovig. I would suggest trying Emgality as outpatient.
== END 2019-10-30 15:38 | disposition home or self-care (01) | DRG 103 ==
LOC: EC 02:57 → 4SSUR 06:27 → OBSVTOIN 10-30 08:04
PROVIDERS: ADMIT Family Medicine; ATTEND Family Medicine
DX: G43.111 Migraine with aura, intractable, with status migrainosus (principal); E27.40 Unspecified adrenocortical insufficiency; N30.00 Acute cystitis without hematuria; I10 Essential (primary) hypertension; E78.5 Hyperlipidemia, unspecified; E11.65 Type 2 diabetes mellitus with hyperglycemia; J44.9 Chronic obstructive pulmonary disease, unspecified; M19.90 Unspecified osteoarthritis, unspecified site; M54.81 Occipital neuralgia; T38.0X5A Adverse effect of glucocorticoids and synthetic analogues, initial encounter; M79.7 Fibromyalgia; Z11.59 Encounter for screening for other viral diseases; Z99.89 Dependence on other enabling machines and devices; Z86.19 Personal history of other infectious and parasitic diseases; Z79.52 Long term (current) use of systemic steroids; Z79.82 Long term (current) use of aspirin; Z79.899 Other long term (current) drug therapy; Z79.4 Long term (current) use of insulin; Z88.1 Allergy status to other antibiotic agents; Z88.5 Allergy status to narcotic agent; Z88.2 Allergy status to sulfonamides; Z88.8 Allergy status to other drugs, medicaments and biological substances; Z91.09 Other allergy status, other than to drugs and biological substances; Z80.49 Family history of malignant neoplasm of other genital organs; Z83.3 Family history of diabetes mellitus; Z82.49 Family history of ischemic heart disease and other diseases of the circulatory system; Z87.442 Personal history of urinary calculi; Z87.820 Personal history of traumatic brain injury; Z90.710 Acquired absence of both cervix and uterus; Z86.14 Personal history of Methicillin resistant Staphylococcus aureus infection; Z90.49 Acquired absence of other specified parts of digestive tract; Z90.89 Acquired absence of other organs; Z98.890 Other specified postprocedural states; Z87.01 Personal history of pneumonia (recurrent); Z83.6 Family history of other diseases of the respiratory system; Z86.718 Personal history of other venous thrombosis and embolism; Z87.440 Personal history of urinary (tract) infections
CPT/HCPCS: 36415; 80053; 81001; 82150; 83690; 85025; 87086; 87635; 93005; 96374; 96375; 96376; 99285

== ENCOUNTER 2019-11-08 17:16 | Inpatient (IN) | payer MEDICARE, BC ==
[2019-11-08] MEDS ORDERED: SODIUM CHLORIDE 0.9% 500 ML 500 ML IV STA (17:27)
--- NOTE | 2019-11-08 17:33 | ED ---
General Adult HPI - General Stated complaint: altered/dehydration Source: RN notes reviewed - History of Present Illness Initial comments: 69-year-old female with a complicated past medical history including hyperlipidemia, hypertension, diabetes mellitus, COPD, pneumonia, UTI, adrenal insufficiency presents to the emergency department for a chief complaining of weakness. Patient states yesterday she started to feel very weak. States she has difficulty getting around at home because of how weak she has. Patient states this morning she fell because she lost her footing due to this weakness. She did not have any chest pain shortness of breath or dizziness preceding this fall. She did not lose consciousness. She did hit her head but denies he adache. Patient states she was unable to get up off the floor but her came to help her shortly thereafter.Patient has no other complaints at this time including shortness of breath, chest pain, abdominal pain, nausea or vomiting, headache, or visual changes. - Related Data Home Medications Medication Instructions Recorded Confirmed Cholecalciferol [Vitamin D3 (25 3,000 unit PO DAILY@0700 12/01/14 11/08/19 Mcg = 1000 Iu)] Metoprolol Succinate (ER) [Toprol 50 mg PO HS 07/06/17 11/08/19 XL] Meclizine [Antivert] 25 mg PO TID PRN 11/26/17 11/08/19 Hydrocortisone [Cortef] 15 mg PO AC-BRKFST 05/18/18 11/08/19 Hydrocortisone [Cortef] 5 mg PO HS 06/26/18 11/08/19 Glucagon Emergency Kit 1 mg IM ONCE PRN 08/12/18 11/08/19 Cranberry 300mg 300 mg PO BID 10/08/18 11/08/19 Ferrous Sulfate [Iron (65 MG 325 mg PO DAILY 10/08/18 11/08/19 Elemental)] Folic Acid 0.4 mg PO DAILY 10/08/18 11/08/19 L.acidoph,Paracasei, B.lactis 2 cap PO BID 10/08/18 11/08/19 [Probiotic] Melatonin 5 mg PO HS PRN 10/08/18 11/08/19 Multivitamins, Thera Liquid 30 ml PO DAILY 10/08/18 11/08/19 [Theragran Liquid (formulary)] Potassium 99 mg PO DAILY 10/08/18 11/08/19 Thiamine [Vitamin B-1] 100 mg PO DAILY 10/08/18 11/08/19 Vitamin B-Complex Drops 1 drop PO BID 10/08/18 11/08/19 Lisinopril [Zestril] 15 mg PO DAILY 11/08/18 11/08/19 HYDROcodone/APAP 10-325MG [[place] 1 tab PO TID PRN 12/26/18 11/08/19 10-325] Pantoprazole [Protonix] 40 mg PO DAILY 01/29/19 11/08/19 Hydrocortisone [Cortef] 10 mg PO AC-LUNCH 08/30/19 11/08/19 Brimonidine Tartrate [Alphagan P 1 drop RIGHT EYE BID 08/31/19 11/08/19 0.2% Ophth Soln] Acetaminophen [Tylenol Extra 1,000 mg PO DAILY PRN 09/12/19 11/08/19 Strength] Insulin Aspart [NovoLOG Flexpen] 14 units SQ AC-BRKFST 10/28/19 11/08/19 Metoclopramide [Reglan] 5 mg PO DAILY PRN 10/28/19 11/08/19 Insulin Glargine,Hum.rec.anlog 26 unit SQ HS 11/08/19 11/08/19 [Lantus Solostar] Prochlorperazine [Compazine] 5 mg PO TID 11/08/19 11/08/19 Venlafaxine HCl [Effexor XR] 75 mg PO DAILY 11/08/19 11/08/19 Previous Rx's Medication Instructions Recorded Aspirin 81 mg PO DAILY #0 07/02/18 Atorvastatin [Lipitor] 40 mg PO HS #30 tab 11/16/18 Magnesium Oxide [Mag-Ox] 400 mg PO BID #1 tab 09/16/19 Insulin Aspart [NovoLOG Flexpen] 18 units SQ AC-LUNCH #0 09/24/19 Insulin Aspart [NovoLOG Flexpen] 22 units SQ AC-SUPPER #0 09/24/19 Butalb/APAP/Caff 50-325-40Mg 1 tab PO Q4H PRN #18 tablet 10/30/19 [Fioricet 50-325-40] Gabapentin [Neurontin] 200 mg PO TID #18 cap 10/30/19 Ondansetron HCl [Zofran] 4 mg PO Q8H PRN #30 tab 10/30/19 Allergies Allergy/AdvReac Type Severity Reaction Status Date / Time butorphanol tartrate Allergy BLISTERS Verified 11/08/19 20:28 [From Stadol] IN MOUTH ceftriaxone [From Rocephin] Allergy Unknown Verified 11/08/19 20:28 clarithromycin [From Biaxin] Allergy Rash/Hives Verified 11/08/19 20:28 codeine Allergy Rash/Hives Verified 11/08/19 20:28 ergotamine tartrate Allergy Unknown Verified 11/08/19 20:28 [From Cafergot] erythromycin base Allergy RASH, GI Verified 11/08/19 20:28 [From E-Mycin] SYMPTOMS ketorolac tromethamine Allergy Rash/Hives Verified 11/08/19 20:28 [From Toradol] liraglutide [From Victoza] Allergy Rash/Hives Verified 11/08/19 20:28 morphine Allergy Rash/Hives Verified 11/08/19 20:28 Penicillins Allergy Rash/Hives Verified 11/08/19 20:28 pentazocine lactate Allergy SEVERE Verified 11/08/19 20:28 [From Talwin] BLISTERS IN MOUTH pregabalin [From Lyrica] Allergy Rash/Hives Verified 11/08/19 20:28 propoxyphene HCl Allergy Rash/Hives Verified 11/08/19 20:28 [From Darvon] Sulfa (Sulfonamide Allergy Rash/Hives Verified 11/08/19 20:28 Antibiotics) tramadol Allergy Unknown Verified 11/08/19 20:28 monosodium glutamate [MSG] AdvReac Nausea & Verified 11/08/19 20:28 Vomiting nalbuphine HCl [From Nubain] AdvReac Nausea & Verified 11/08/19 20:28 Vomiting Review of Systems ROS Statement: Those systems with pertinent positive or pertinent negative responses have been documented in the HPI. ROS Other: All systems not noted in ROS Statement are negative. 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, R wri st/elbow nerve repair, bone removed R shoulder, 4th toe R foot partial amputation, bilateral feet/bunionectomies, R knee arthroscopies, R orbit decompression with ethmoidectomy and eyelid lift, EGD, colonoscopies, cystocopies, lithotripsy/stents, total hysterectomy, bilateral breast reduction, bilateral cataract removals.Parathyroid surgery - April 2019, pain clinic procedures Past Anesthesia/Blood Transfusion Reactions: No Reported Reaction Additional Past Anesthesia/Blood Transfusion Reaction / Comment(s): never recieved blood Past Psychological History: No Psychological Hx Reported Smoking Status: Never smoker Past Alcohol Use History: Occasional Past Drug Use History: None Reported - Past Family History Father Family Medical History: Coronary Artery Disease (CAD), CVA/TIA, Diabetes Mellitus, Myocardial Infarction (NE), Pneumonia Additional Family Medical History / Comment(s): Father at the age of 78yrs from NE and pneumonia. Mother Family Medical History: Cancer Additional Family Medical History / Comment(s): Mother had uterine cancer. She recently at the age of 96yrs old. General Exam General appearance: alert, in no apparent distress Head exam: Present: atraumatic, normocephalic, normal inspection Eye exam: Present: normal appearance, PERRL, EOMI. Absent: scleral icterus, c onjunctival injection, periorbital swelling ENT exam: Present: normal exam, mucous membranes moist Neck exam: Present: normal inspection. Absent: tenderness, meningismus, lymphadenopathy Respiratory exam: Present: normal lung sounds bilaterally. Absent: respiratory distress, wheezes, rales, rhonchi, stridor Cardiovascular Exam: Present: regular rate, normal rhythm, normal heart sounds. Absent: systolic murmur, diastolic murmur, rubs, gallop, clicks GI/Abdominal exam: Present: soft, normal bowel sounds. Absent: distended, tenderness, guarding, rebound, rigid Neurological exam: Present: alert, oriented X3, CN II-XII intact, other (GCS 15) Expanded Patient oriented to: Present: person, place, time Speech: Present: fluid speech Cranial nerves: EOM's Intact: Normal, Tongue Deviation: Normal, Nystagmus: Normal, Facial Sensation: Normal Cerebellar function: Finger to Nose: Normal Upper motor neuron: Pronator Drift: Normal Sensory exam: Upper Extremity Light Touch: Normal, Upper Extremity Pin Prick: Normal, Lower Extremity Light Touch: Normal, Lower Extremity Pin Prick: Normal Motor strength exam: RUE: 5 (No drift), LUE: 5 (No drift), RLE: 5 (No drift), LL E: 5 (No drift) Eye Response: (4) open spontaneously Motor Response: (6) obeys commands Verbal Response: (5) oriented [place] Total: 15 Psychiatric exam: Present: normal affect, normal mood Course Vital Signs 11/08/19 11/08/19 11/08/19 17:22 19:24 20:48 Temperature 98.5 F Pulse Rate 114 H 114 H 111 H Respiratory 18 18 18 Rate Blood Pressure 114/85 122/75 108/62 O2 Sat by Pulse 98 96 92 L Oximetry EKG Findings - EKG Comments: EKG Findings:: Sinus tachycardia, ventricular rate 116, ND interval 124, QTC 425 Medical Decision Making - Medical Decision Making ED cervical spine shows no acute fracture or dislocation evident. There is chronic vertebral body height loss of T1 and T2 much unchanged from prior MRI. No acute intracranial hemorrhage. X-ray of the pelvis is noted with old fracture deformity of the right medial orbital wall that is chronic. Chronic micro-angiopathy as well. Vitals are stable. Patient does have sustained tachycardia in the 110's. This is sinus tachycardia. She is complaining of generalized weakness for the past 2 days. CBC did show white count of 15.9. CMP shows mild hyperglycemia of 266. Lactic acid is 3.2, could be related to dehydration. Patient was given fluids. Urinalysis does not show any obvious evidence of infection. Did attempt to ambulate patient and she is a 2+ person assist. Dr. Schwarz also evaluated and examined patient. Patient does not have any neurologic deficits however is describing an ataxic picture over the past couple days. There has been no change in the symptoms within the past 48 hours. Therefore we will consult neurology. Patient will be admitted to the hospital for further evaluation of weakness. - Lab Data Result diagrams: 11/08/19 18:10 11/08/19 18:10 Lab Results 11/08/19 11/08/19 11/08/19 Range/Units 18:10 18:10 18:10 WBC 15.9 H (3.8-10.6) k/uL RBC 5.23 (3.80-5.40) m/uL Hgb 15.0 (11.4-16.0) gm/dL Hct 47.4 H (34.0-46.0) % MCV 90.7 (80.0-100.0) fL MCH 28.7 (25.0-35.0) pg MCHC 31.6 (31.0-37.0) g/dL RDW 14.6 (11.5-15.5) % Plt Count 298 (150-450) k/uL Neutrophils % 72 % Lymphocytes % 21 % Monocytes % 5 % Eosinophils % 1 % Basophils % 0 % Neutrophils # 11.4 H (1.3-7.7) k/uL Lymphocytes # 3.4 (1.0-4.8) k/uL Monocytes # 0.8 (0-1.0) k/uL Eosinophils # 0.2 (0-0.7) k/uL Basophils # 0.1 (0-0.2) k/uL PT 9.6 (9.0-12.0) sec INR 0.9 (<1.2) APTT 19.5 L (22.0-30.0) sec Sodium 132 L (137-145) mmol/L Potassium 4.0 (3.5-5.1) mmol/L Chloride 96 L (98-107) mmol/L Carbon Dioxide 24 (22-30) mmol/L Anion Gap 12 mmol/L BUN 19 H (7-17) mg/dL Creatinine 0.79 (0.52-1.04) mg/dL Est GFR (CKD-EPI)AfAm 89 (>60 ml/min/1.73 sqM) Est GFR (CKD-EPI)NonAf 77 (>60 ml/min/1.73 sqM) Glucose 266 H (74-99) mg/dL Plasma Lactic Acid Sudhir (0.7-2.0) mmol/L Calcium 9.2 (8.4-10.2) mg/dL Magnesium 1.7 (1.6-2.3) mg/dL Total Bilirubin 0.6 (0.2-1.3) mg/dL AST 20 (14-36) U/L ALT 17 (4-34) U/L Alkaline Phosphatase 74 (38-126) U/L Troponin I (0.000-0.034) ng/mL Total Protein 6.2 L (6.3-8.2) g/dL Albumin 4.0 (3.5-5.0) g/dL Urine Color Urine Appearance (Clear) Urine pH (5.0-8.0) Ur Specific [place] (1.001-1.035) Urine Protein (Negative) Urine Glucose (UA) (Negative) Urine Ketones (Negative) Urine Blood (Negative) Urine Nitrite (Negative) Urine Bilirubin (Negative) Urine Urobilinogen (<2.0) mg/dL Ur Leukocyte Esterase (Negative) Urine RBC (0-5) /hpf Urine WBC (0-5) /hpf Urine Bacteria (None) /hpf Hyaline Casts (0-2) /lpf Urine Mucus (None) /hpf 11/08/19 11/08/19 11/08/19 Range/Units 18:10 18:10 19:46 WBC (3.8-10.6) k/uL RBC (3.80-5.40) m/uL Hgb (11.4-16.0) gm/dL Hct (34.0-46.0) % MCV (80.0-100.0) fL MCH (25.0-35.0) pg MCHC (31.0-37.0) g/dL RDW (11.5-15.5) % Plt Count (150-450) k/uL Neutrophils % % Lymphocytes % % Monocytes % % Eosinophils % % Basophils % % Neutrophils # (1.3-7.7) k/uL Lymphocytes # (1.0-4.8) k/uL Monocytes # (0-1.0) k/uL Eosinophils # (0-0.7) k/uL Basophils # (0-0.2) k/uL PT (9.0-12.0) sec INR (<1.2) APTT (22.0-30.0) sec Sodium (137-145) mmol/L Potassium (3.5-5.1) mmol/L Chloride (98-107) mmol/L Carbon Dioxide (22-30) mmol/L Anion Gap mmol/L BUN (7-17) mg/dL Creatinine (0.52-1.04) mg/dL Est GFR (CKD-EPI)AfAm (>60 ml/min/1.73 sqM) Est GFR (CKD-EPI)NonAf (>60 ml/min/1.73 sqM) Glucose (74-99) mg/dL Plasma Lactic Acid Sudhir 3.2 H* (0.7-2.0) mmol/L Calcium (8.4-10.2) mg/dL Magnesium (1.6-2.3) mg/dL Total Bilirubin (0.2-1.3) mg/dL AST (14-36) U/L ALT (4-34) U/L Alkaline Phosphatase (38-126) U/L Troponin I 0.017 (0.000-0.034) ng/mL Total Protein (6.3-8.2) g/dL Albumin (3.5-5.0) g/dL Urine Color Yellow Urine Appearance Clear (Clear) Urine pH 5.0 (5.0-8.0) Ur Specific [place] 1.050 H (1.001-1.035) Urine Protein 1+ H (Negative) Urine Glucose (UA) 3+ H (Negative) Urine Ketones Trace H (Negative) Urine Blood Negative (Negative) Urine Nitrite Negative (Negative) Urine Bilirubin Negative (Negative) Urine Urobilinogen <2.0 (<2.0) mg/dL Ur Leukocyte Esterase Negative (Negative) Urine RBC 1 (0-5) /hpf Urine WBC 2 (0-5) /hpf Urine Bacteria Rare H (None) /hpf Hyaline Casts 8 H (0-2) /lpf Urine Mucus Rare H (None) /hpf Disposition Clinical Impression: Hyponatremia, Adrenal insufficiency, Lactic acidosis, Leukocytosis, Weakness Disposition: ADMITTED IP TO THIS HOSP Condition: Fair Referrals: nAdrew Gonsales MD [Primary Care Provider] - 1-2 days Time of Disposition: 21:08
[2019-11-08] MEDS ORDERED: HYDROCORTISONE SUCCINATE 100 MG/2 ML VIAL IV STA (17:41)
[2019-11-08] MEDS ORDERED: ONDANSETRON 4 MG/2 ML VIAL IVP STA (17:45)
[2019-11-08 18:35] LABS: Basophils # (A) 0.1 k/uL (0-0.2); Basophils % (A) 0 %; Eosinophils # (A) 0.2 k/uL (0-0.7); Eosinophils % (A) 1 %; HCT 47.4 % (34.0-46.0); Lymphocytes # (A) 3.4 k/uL (1.0-4.8); Lymphocytes % (A) 21 %; MCH 28.7 pg (25.0-35.0); MCHC 31.6 g/dL (31.0-37.0); MCV 90.7 fL (80.0-100.0); Mean Platelet Volume 8.1; Monocytes # (A) 0.8 k/uL (0-1.0); Monocytes % (A) 5 %; Neutrophils # (A) 11.4 k/uL (1.3-7.7); Neutrophils % (A) 72 %; Platelet Count 298 k/uL (150-450); RBC 5.23 m/uL (3.80-5.40); RDW 14.6 % (11.5-15.5); WBC 15.9 k/uL (3.8-10.6)
[2019-11-08 18:48] LABS: Calcium 9.2 mg/dL (8.4-10.2); Magnesium 1.7 mg/dL (1.6-2.3); Total Bilirubin 0.6 mg/dL (0.2-1.3); Total Protein 6.2 g/dL (6.3-8.2)
--- NOTE | 2019-11-08 19:09 | CT ---
EXAMINATION TYPE: CT brain cspine wo con DATE OF EXAM: 11/08/2019 COMPARISON: 08/30/[address] dated 09/29/2016. MRI of the cervical spine dated 09/16/2019 HISTORY: Fall today. Patient poor historian. Neck pain CT DLP: 1468.2 mGycm. Automated Exposure Control for Dose Reduction was Utilized. TECHNIQUE: CT scan of the head and cervical spine are performed without contrast. FINDINGS: There is no acute intracranial hemorrhage, mass effect, or midline shift identified. The ventricles and sulci are symmetrically prominent compatible with age-related volume loss. Old lacun ar injury is seen of the right lentiform nucleus as noted on the prior of 08/30/2019. Scattered areas of hypoattenuation are seen within the periventricular and subcortical white matter most commonly on the basis of chronic microangiopathy. Ossific density is seen within the left maxillary sinus appeari ng unchanged from the prior, possibly sequela of prior chronic paranasal sinus disease. This is parti ally visualized on exams dating back to 09/29/2016. Old fracture deformity of the right medial orbital wall. 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 Degenerative arthropathy is seen of the tempo romandibular joints. Cervical spine is visualized in its entirety from C1 through upper thoracic levels and demonstrates s atisfactory alignment without evidence of acute fracture or dislocation. Slight vertebral body height loss of T1 and T2 appear chronic unchanged from the MRI dated 09/16/2019. Moderate multilevel degener ative changes of the cervical spine are seen. Degree of neural foraminal narrowing and spinal canal s tenosis are better delineated on the prior MRI. Prevertebral soft tissue appears within normal limit s. The C1-C2 articulation is unremarkable. Atherosclerosis is seen of the carotid arteries. Interst itial prominence in the visualized lung apices and scattered areas of atelectasis. IMPRESSION: 1. There is no acute fracture or dislocation evident in the cervical spine. Chronic mild vertebral alex dy height loss of T1 and T2 appear unchanged from the prior MRI of 09/16/2019. Moderate multilevel deg enerative disc disease of the cervical spine is seen. 2. No acute intracranial hemorrhage, mass effect, or midline shift is seen. 3. Acute on chronic appearing changes in the left maxillary sinus. 4. Exophthalmos noted with old fracture deformity of the right medial orbital wall and contour deform ity of the right orbit that is chronic. 5. Old clavicular injury of the right lentiform nucleus and moderate burden nonspecific white matter change, most commonly on the basis of chronic microangiopathy.
[2019-11-08] MEDS ORDERED: HYDROmorphone 0.5 MG/0.5 ML SYRINGE IVP STA (19:12)
[2019-11-08] MEDS ORDERED: SODIUM CHLORIDE 0.9% 1,000 ML IV STA (19:12)
[2019-11-08 19:14] LABS: INR 0.9 (<1.2); Prothrombin Time 9.6 sec (9.0-12.0)
--- NOTE | 2019-11-08 19:14 | XR ---
EXAMINATION TYPE: XR chest 1V portable DATE OF EXAM: 11/08/2019 COMPARISON: 09/12/2019 HISTORY: Weakness, history of recent urinary tract infection. History of COPD. TECHNIQUE: Single frontal view of the chest is obtained. FINDINGS: There is no focal air space opacity, pleural effusion, or pneumothorax seen. Chronic event ration of the right hemidiaphragm. The cardiac silhouette size is mildly enlarged. Obscuration the le ft costophrenic angle is likely from copious overlying soft tissues. The osseous structures are inta ct. IMPRESSION: No acute cardiopulmonary process.
[2019-11-08 19:17] LABS: Partial Thromboplastin Time 19.5 sec (22.0-30.0)
[2019-11-08 20:11] LABS: Appearance,Urine Clear (Clear); Bacteria,Urine Rare /hpf; Bilirubin,Urine Negative (Negative); Blood,Urine Negative (Negative); Color,Urine Yellow; Glucose,Urine (UA) 3+ (Negative); Hyaline Casts,Urine 8 /lpf (0-2); Ketones,Urine Trace (Negative); Leukocyte Esterase,Urine Negative (Negative); Mucus,Urine Rare /hpf; Nitrite,Urine Negative (Negative); Protein,Urine 1+ (Negative); RBC,Urine 1 /hpf (0-5); Urobilinogen,Urine <2.0 mg/dL (<2.0); WBC,Urine 2 /hpf (0-5)
[2019-11-08] MEDS ORDERED: NALOXONE 0.4 MG/ML 1 ML VIAL IV PRN (21:10)
[2019-11-08] MEDS ORDERED: METOCLOPRAMIDE 5 MG TAB PO PRN (21:14)
[2019-11-08] MEDS ORDERED: ONDANSETRON 4 MG TAB PO PRN (21:14)
[2019-11-08] MEDS ORDERED: MECLIZINE 25 MG TAB PO PRN (21:14)
[2019-11-08] MEDS ORDERED: ACETAMINOPHEN TAB 500 MG TAB PO PRN (21:14)
[2019-11-08] MEDS: HYDROmorphone 0.5 MG/0.5 ML SYRINGE IVP PRN (22:51)
[2019-11-08] MEDS: GABAPENTIN 100 MG CAP PO SCH (22:51)
[2019-11-08] MEDS: SODIUM CHLORIDE 0.9% 1,000 ML IV SCH (22:52)
[2019-11-08 23:01] LABS: Glucose,Whole Blood 290 mg/dL (75-99)
[2019-11-08] MEDS ORDERED: INSULIN ASPART (NovoLOG) 100 UNIT/ML VIAL SQ ONE (23:38)
[2019-11-09] MEDS: INSULIN DETEMIR (LEVEMIR) 100 UNIT/ML SYR SQ SCH ×2 (00:24→21:05)
[2019-11-09] MEDS: HYDROCORTISONE SUCCINATE 100 MG/2 ML VIAL IV SCH ×3 (00:28→18:02)
[2019-11-09] MEDS: HYDROmorphone 0.5 MG/0.5 ML SYRINGE IVP PRN ×7 (02:04→21:05)
[2019-11-09] MEDS ORDERED: HYDROCORTISONE 10 MG TAB PO SCH ×3 (07:30→21:00)
[2019-11-09 07:45] LABS: Glucose,Whole Blood 200 mg/dL (75-99)
[2019-11-09] MEDS: MAGNESIUM OXIDE 400 MG TAB PO SCH ×2 (08:11→21:04)
[2019-11-09] MEDS: CHOLECALCIFEROL 1,000 UNIT TAB PO SCH (08:11)
[2019-11-09] MEDS: PANTOPRAZOLE 40 MG TABLET PO SCH (08:11)
[2019-11-09] MEDS: LISINOPRIL 10 MG TAB PO SCH (08:12)
[2019-11-09] MEDS: MULTIVITAMINS, THERA 1 EACH TAB PO SCH (08:12)
[2019-11-09] MEDS: GABAPENTIN 100 MG CAP PO SCH ×3 (08:12→21:04)
[2019-11-09] MEDS: PROCHLORPERAZINE 10 MG TAB PO SCH ×3 (08:12→21:15)
[2019-11-09] MEDS: FERROUS SULFATE 325 MG TAB PO SCH (08:12)
[2019-11-09] MEDS: VENLAFAXINE HCL ER 75 MG CAP PO SCH (08:12)
[2019-11-09] MEDS: ASPIRIN 81 MG PO SCH (08:12)
[2019-11-09] MEDS: INSULIN ASPART (NovoLOG) 100 UNIT/ML VIAL SQ SCH ×7 (08:15→21:04)
[2019-11-09] MEDS: SODIUM CHLORIDE 0.9% 1,000 ML IV SCH (08:23)
[2019-11-09] MEDS ORDERED: ACIDOPH PARACASEI B LACTIS PO SCH (09:00)
[2019-11-09] MEDS ORDERED: NON FORMULARY DRUG (Potassium [Potassium] 99 MG) PO SCH (09:00)
[2019-11-09] MEDS ORDERED: NON FORMULARY DRUG (Folic Acid [Folic Acid] 0.4 MG) PO SCH (09:00)
[2019-11-09] MEDS ORDERED: VITAMIN B COMPLEX PO SCH (09:00)
[2019-11-09] MEDS: THIAMINE 100 MG TAB PO SCH (09:05)
[2019-11-09] MEDS: BRIMONIDINE TARTRATE 0.2% DROPS 5 ML BTL RIGHT EYE SCH ×2 (11:16→21:04)
[2019-11-09 12:04] LABS: Glucose,Whole Blood 150 mg/dL (75-99)
--- NOTE | 2019-11-09 17:28 | P.CNNES ---
History of Present Illness Consult date: 11/09/19 Reason for Consult: weakness, possible vertebrobasilar insufficiency Chief complaint: weakness History of Present Illness: The patient is a 69-year-old female who is seen in neurologic consultation on November 09, 2019, via teleneurology. The patient came into the emergency department yesterday after falling at home. She says that she fell 2 times yesterday. She is feels that she may have a bladder infection, because this often happens when she has a bladder infection. She describes generalized weakness. She says that she fell because of loss of balance. She has been having difficulty with her balance for proximally 2 days. The patient denies lightheadedness. She describes generalized weakness. She does not feel as if one side is weaker than the other. She said that yesterday when she fell, she hit her face. She was able to get her hands out to break her fall. She was not unable to get up. She required help from her . There is no loss of consciousness. In addition to weakness and ataxia, patient reports having some word finding difficulties yesterday. This has resolved today. The patient denies changes in vision. She has no difficulty with hand coordination. She denies paresthesias. Patient does report headaches. She says this is secondary to a concussion that she suffered in March 2019. The patient does report coming into the hospital last week with similar sympt oms. She said that she felt weak and shaky. She was found to have a urinary tract infection. She was admitted and had 4 days of IV antibiotics. When she was discharged home, she did not require oral antibiotics. 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, R wrist/elbow nerve repair, bone removed R shoulder, 4th toe R foot partial amput ation, bilateral feet/bunionectomies, R knee arthroscopies, R orbit decompression with ethmoidectomy and eyelid lift, EGD, colonoscopies, cystocopies, lithotripsy/stents, total hysterectomy, bilateral breast reduction, bilateral cataract removals.Parathyroid surgery - April 2019, pain clinic procedures Past Anesthesia/Blood Transfusion Reactions: No Reported Reaction Additional Past Anesthesia/Blood Transfusion Reaction / Comment(s): never rec ieved blood Past Psychological History: No Psychological Hx Reported Additional Psychological History / Comment(s): Pt resides with her spouse. She uses a walker if out shopping. She drives. She has a nebulizer, cpap, bsc, shower chair, bp machine, dexcom monitor system for her bs. Smoking Status: Never smoker Past Alcohol Use History: Occasional Additional Past Alcohol Use History / Comment(s): no alcohol Past Drug Use History: None Reported - Past Family History Father Family Medical History: Coronary Artery Disease (CAD), CVA/TIA, Diabetes Mellitus, Myocardial Infarction (CO), Pneumonia Additional Family Medical History / Comment(s): Father at the age of 78yrs from CO and pneumonia. Mother Family Medical History: Cancer Additional Family Medical History / Comment(s): Mother had uterine cancer. She recently at the age of 96yrs old. Medications and Allergies Home Medications Medication Instructions Recorded Confirmed Type Cholecalciferol [Vitamin D3 (25 3,000 unit PO DAILY@0700 12/01/14 11/08/19 History Mcg = 1000 Iu)] Metoprolol Succinate (ER) [Toprol 50 mg PO HS 07/06/17 11/08/19 History XL] Meclizine [Antivert] 25 mg PO TID PRN 11/26/17 11/08/19 History Hydrocortisone [Cortef] 15 mg PO AC-BRKFST 05/18/18 11/08/19 History Hydrocortisone [Cortef] 5 mg PO HS 06/26/18 11/08/19 History Aspirin 81 mg PO DAILY #0 07/02/18 11/08/19 Rx Glucagon Emergency Kit 1 mg IM ONCE PRN 08/12/18 11/08/19 History Cranberry 300mg 300 mg PO BID 10/08/18 11/08/19 History Ferrous Sulfate [Iron (65 MG 325 mg PO DAILY 10/08/18 11/08/19 History Elemental)] Folic Acid 0.4 mg PO DAILY 10/08/18 11/08/19 History L.acidoph,Paracasei, B.lactis 2 cap PO BID 10/08/18 11/08/19 History [Probiotic] Melatonin 5 mg PO HS PRN 10/08/18 11/08/19 History Multivitamins, Thera Liquid 30 ml PO DAILY 10/08/18 11/08/19 History [Theragran Liquid (formulary)] Potassium 99 mg PO DAILY 10/08/18 11/08/19 History Thiamine [Vitamin B-1] 100 mg PO DAILY 10/08/18 11/08/19 History Vitamin B-Complex Drops 1 drop PO BID 10/08/18 11/08/19 History Lisinopril [Zestril] 15 mg PO DAILY 11/08/18 11/08/19 History Atorvastatin [Lipitor] 40 mg PO HS #30 tab 11/16/18 11/08/19 Rx HYDROcodone/APAP 10-325MG [Portis 1 tab PO TID PRN 12/26/18 11/08/19 History 10-325] Pantoprazole [Protonix] 40 mg PO DAILY 01/29/19 11/08/19 History Hydrocortisone [Cortef] 10 mg PO AC-LUNCH 08/30/19 11/08/19 History Brimonidine Tartrate [Alphagan P 1 drop RIGHT EYE BID 08/31/19 11/08/19 History 0.2% Ophth Soln] Acetaminophen [Tylenol Extra 1,000 mg PO DAILY PRN 09/12/19 11/08/19 History Strength] Magnesium Oxide [Mag-Ox] 400 mg PO BID #1 tab 09/16/19 11/08/19 Rx Insulin Aspart [NovoLOG Flexpen] 18 units SQ AC-LUNCH #0 09/24/19 11/08/19 Rx Insulin Aspart [NovoLOG Flexpen] 22 units SQ AC-SUPPER #0 09/24/19 11/08/19 Rx Insulin Aspart [NovoLOG Flexpen] 14 units SQ AC-BRKFST 10/28/19 11/08/19 History Metoclopramide [Reglan] 5 mg PO DAILY PRN 10/28/19 11/08/19 History Butalb/APAP/Caff 50-325-40Mg 1 tab PO Q4H PRN #18 tablet 10/30/19 11/08/19 Rx [Fioricet 50-325-40] Gabapentin [Neurontin] 200 mg PO TID #18 cap 10/30/19 11/08/19 Rx Ondansetron HCl [Zofran] 4 mg PO Q8H PRN #30 tab 10/30/19 11/08/19 Rx Insulin Glargine,Hum.rec.anlog 26 unit SQ HS 11/08/19 11/08/19 History [Lantus Solostar] Prochlorperazine [Compazine] 5 mg PO TID 11/08/19 11/08/19 History Venlafaxine HCl [Effexor XR] 75 mg PO DAILY 11/08/19 11/08/19 History Allergies Allergy/AdvReac Type Severity Reaction Status Date / Time butorphanol tartrate Allergy BLISTERS Verified 11/08/19 20:28 [From Stadol] IN MOUTH ceftriaxone [From Rocephin] Allergy Unknown Verified 11/08/19 20:28 clarithromycin [From Biaxin] Allergy Rash/Hives Verified 11/08/19 20:28 codeine Allergy Rash/Hives Verified 11/08/19 20:28 ergotamine tartrate Allergy Unknown Verified 11/08/19 20:28 [From Cafergot] erythromycin base Allergy RASH, GI Verified 11/08/19 20:28 [From E-Mycin] SYMPTOMS ketorolac tromethamine Allergy Rash/Hives Verified 11/08/19 20:28 [From Toradol] liraglutide [From Victoza] Allergy Rash/Hives Verified 11/08/19 20:28 morphine Allergy Rash/Hives Verified 11/08/19 20:28 Penicillins Allergy Rash/Hives Verified 11/08/19 20:28 pentazocine lactate Allergy SEVERE Verified 11/08/19 20:28 [From Talwin] BLISTERS IN MOUTH pregabalin [From Lyrica] Allergy Rash/Hives Verified 11/08/19 20:28 propoxyphene HCl Allergy Rash/Hives Verified 11/08/19 20:28 [From Darvon] Sulfa (Sulfonamide Allergy Rash/Hives Verified 11/08/19 20:28 Antibiotics) tramadol Allergy Unknown Verified 11/08/19 20:28 monosodium glutamate [MSG] AdvReac Nausea & Verified 11/08/19 20:28 Vomiting nalbuphine HCl [From Nubain] AdvReac Nausea & Verified 11/08/19 20:28 Vomiting Physical Examination - Vital Signs Vital Signs: Vital Signs Temp Pulse Pulse Resp BP BP Pulse Ox 11/09/19 11:21 100.2 F H 11/09/19 07:00 100.0 F H 110 H 18 168/74 99 11/09/19 01:50 99.2 F 105 H 20 148/88 92 L 11/08/19 23:00 99.2 F 103 H 20 131/82 94 L 11/08/19 22:00 98.0 F 112 H 18 115/64 95 11/08/19 20:48 111 H 18 108/62 92 L 11/08/19 19:24 114 H 18 122/75 96 11/08/19 17:22 98.5 F 114 H 18 114/85 98 Intake and Output 11/09/19 11/09/19 11/09/19 06:59 14:59 22:59 Intake Total 100 Output Total 2 Balance 98 Intake: Oral 100 Output: Urine 1 Stool 1 Gen.: The patient is an obese female was reclining in the bed. She is in no acute distress. HEENT: Head is atraumatic, normocephalic. Fundus not visualized. There is no scleral icterus. Mucous membranes are moist. Heart: Regular rate and rhythm Lungs: Clear to auscultation Extremities: Bilateral pitting edema of the lower extremities Neurological examination Mental status: Patient is awake, alert and oriented 3. Her speech is clear. There is no dysarthria or aphasia. Cranial nerves: Pupils are equal, round and reactive to light. Visual hinds are full to confrontation. Extraocular movements are intact. There is noted to be nystagmus involving the left eye, on right lateral gaze. Facial sensations intact. There is no facial asymmetry. Hearing is grossly intact. Uvula and palate are midline. Shoulder shrug is symmetric. Tongue protrudes midline. Motor: Strength is 5/5 throughout Coordination: There is a mild endpoint tremor with finger to nose testing, bilaterally, left greater than right. There is ataxia on [id number] testing bilaterally, right greater than left. Deep tendon reflexes: 2+/4+ throughout Sensation: Proprioception and light touch are intact. There is no evidence of distal gradient sensory loss. Results - Laboratory Findings CBC and BMP: 11/08/19 18:10 11/08/19 18:10 Abnormal Lab Findings: Abnormal Labs 11/08/19 11/08/19 11/08/19 18:10 18:10 18:10 WBC 15.9 H Hct 47.4 H Neutrophils # 11.4 H APTT 19.5 L Sodium 132 L Chloride 96 L BUN 19 H Glucose 266 H POC Glucose (mg/dL) Plasma Lactic Acid Sudhir Total Protein 6.2 L Ur Specific [place] Urine Protein Urine Glucose (UA) Urine Ketones Urine Bacteria Hyaline Casts Urine Mucus 11/08/19 11/08/19 11/08/19 18:10 19:46 22:59 WBC Hct Neutrophils # APTT Sodium Chloride BUN Glucose POC Glucose (mg/dL) 290 H Plasma Lactic Acid Sudhir 3.2 H* Total Protein Ur Specific [place] 1.050 H Urine Protein 1+ H Urine Glucose (UA) 3+ H Urine Ketones Trace H Urine Bacteria Rare H Hyaline Casts 8 H Urine Mucus Rare H 11/09/19 11/09/19 07:43 12:02 WBC Hct Neutrophils # APTT Sodium Chloride BUN Glucose POC Glucose (mg/dL) 200 H 150 H Plasma Lactic Acid Sudhir Total Protein Ur Specific [place] Urine Protein Urine Glucose (UA) Urine Ketones Urine Bacteria Hyaline Casts Urine Mucus Assessment and Plan Assessment: Impressions: 1. Ataxia and generalized weakness 2. Reported concussion in March 2019-new onset headaches as of August 2019 Plan: 1. CT angiogram of the [place]-to assess the posterior circulation 2. Would DC meclizine as the patient does not describe vertigo Time with Patient: Greater than 30 (spent 45 minutes with patient via teleneurology)
--- NOTE | 2019-11-09 17:29 | CT ---
EXAMINATION TYPE: CT angio C[facility] [place] DATE OF EXAM: 11/09/2019 4:06 PM COMPARISON: CT dated 11/08/2019 and 09/19/2019 MRI HISTORY: POSSIBLE VERTEBROBASILAR INSUFFICIENY CT DLP: 920.5 mGycm Automated exposure control for dose reduction was used. TECHNIQUE: Standard CTA of the [place] [facility] [place] department protocol. Performed with IV Contrast, patient injecte d with 100 mL of Isovue 370. Three-D reformatted images of the [place] were obtained at a [employer] workstation and cemented for review. FINDINGS: There is severe focal atherosclerosis of the vertebral arteries, right greater than left at the level of C1 with only diminutive flow seen focally in the area of stenosis of 7 mm in length. Degree of st enosis is difficult to estimate but greater than 70%. Stenosis on the left measures a distance of 4 m m both seen on image 10 of series 401. There is good flow distal to the areas of atherosclerosis of t he codominant vertebral arteries. Basilar artery flow is also maintained. Very mild stenosis of the P 1 segment on the right is seen on image 23 focally measuring 2 mm in length. Atherosclerosis is seen of the cavernous and supraclinoid portions of the internal carotid arteries. There is a 2 mm saccular aneurysm emanating from the right lateral aspect of the right ICA terminus o n image 19. Exophytic calcification along the left middle cranial fossa is incidentally seen, possible bony exost osis or small meningioma measuring 4 mm. No abnormal enhancement on the prior MRI of 09/19/2027 this ar ea. For this likely represents a small bony exostosis. The left maxillary findings are unchanged from the prior CT dated 11/08/2019. Right orbital changes ar e also stable from the prior. IMPRESSION: 1. SEVERE ATHEROSCLEROSIS OF THE BILATERAL VERTEBRAL ARTERIES AT THE LEVEL OF C1 WITH SHORT SEGMENT A REAS OF STENOSIS OF GREATER THAN 70%. VERTEBROBASILAR INSUFFICIENCY IS THEREFORE POSSIBLE. 2. RIGHT INTERNAL CAROTID ARTERY TERMINUS 2 MM SACCULAR ANEURYSM. 3. PROBABLE BONY EXOSTOSIS OF THE LEFT MIDDLE CRANIAL FOSSA VERSUS LESS LIKELY 4 MM MENINGIOMA. THIS DEMONSTRATES NO ABNORMAL ENHANCEMENT ON THE PRIOR MRI AND THEREFORE LIKELY REPRESENTS A BENIGN BONY E XOSTOSIS. 4. SHORT SEGMENT MILD DEGREE STENOSIS OF THE RIGHT POSTERIOR CEREBRAL ARTERY (P1 SEGMENT).
[2019-11-09 17:30] LABS: Glucose,Whole Blood 119 mg/dL (75-99)
[2019-11-09] MEDS: LEVOFLOXACIN 500MG-D5W PMX 500 MG in DEXTROSE/WATER 1 100ML.BAG IVPB SCH (18:03)
[2019-11-09 20:46] LABS: Glucose,Whole Blood 238 mg/dL (75-99)
[2019-11-09] MEDS: ATORVASTATIN 40 MG TAB PO SCH (21:04)
[2019-11-09] MEDS: METOPROLOL SUCCINATE (ER) 50 MG TAB.ER.24H PO SCH (21:04)
[2019-11-10] MEDS: HYDROCORTISONE SUCCINATE 100 MG/2 ML VIAL IV SCH ×4 (00:04→23:18)
[2019-11-10] MEDS: SODIUM CHLORIDE 0.9% 1,000 ML IV SCH ×4 (00:05→23:19)
[2019-11-10] MEDS: HYDROmorphone 0.5 MG/0.5 ML SYRINGE IVP PRN ×8 (00:05→21:29)
[2019-11-10 07:03] LABS: Glucose,Whole Blood 209 mg/dL (75-99)
[2019-11-10] MEDS: INSULIN ASPART (NovoLOG) 100 UNIT/ML VIAL SQ SCH ×7 (07:30→21:09)
[2019-11-10] MEDS: CHOLECALCIFEROL 1,000 UNIT TAB PO SCH (08:04)
[2019-11-10] MEDS: MULTIVITAMINS, THERA 1 EACH TAB PO SCH (08:04)
[2019-11-10] MEDS: THIAMINE 100 MG TAB PO SCH (08:04)
[2019-11-10] MEDS: ASPIRIN 81 MG PO SCH (08:04)
[2019-11-10] MEDS: LISINOPRIL 10 MG TAB PO SCH (08:04)
[2019-11-10] MEDS: MAGNESIUM OXIDE 400 MG TAB PO SCH ×2 (08:05→21:09)
[2019-11-10] MEDS: FERROUS SULFATE 325 MG TAB PO SCH (08:08)
[2019-11-10] MEDS: GABAPENTIN 100 MG CAP PO SCH ×3 (08:08→21:09)
[2019-11-10] MEDS: VENLAFAXINE HCL ER 75 MG CAP PO SCH (08:08)
[2019-11-10] MEDS: BRIMONIDINE TARTRATE 0.2% DROPS 5 ML BTL RIGHT EYE SCH ×2 (08:09→21:09)
[2019-11-10] MEDS: PROCHLORPERAZINE 10 MG TAB PO SCH ×3 (08:09→21:10)
[2019-11-10] MEDS: PANTOPRAZOLE 40 MG TABLET PO SCH (08:09)
[2019-11-10 11:35] LABS: Glucose,Whole Blood 120 mg/dL (75-99)
[2019-11-10] MEDS: LEVOFLOXACIN 500MG-D5W PMX 500 MG in DEXTROSE/WATER 1 100ML.BAG IVPB SCH (15:20)
--- NOTE | 2019-11-10 15:42 | P.PN ---
Subjective Progress Note Date: 11/10/19 The patient reports feeling stronger today. She does note that her thighs are sore. She was able to get up and walk to the bathroom. The patient reminds me that she had slurred speech when she presented to the emergency department. She denies visual changes. Objective - Vital Signs Vital signs: Vital Signs Temp 98.5 F 11/10/19 07:45 Pulse 60 11/10/19 07:45 Resp 18 11/10/19 07:45 BP 164/78 11/10/19 07:45 Pulse Ox 97 11/10/19 07:45 Intake & Output 11/09/19 11/10/19 11/10/19 18:59 06:59 18:59 Output Total 1 Balance -1 Output: Urine 1 Other: Voiding Method Toilet # Voids 2 1 1 - Exam Gen.: The patient is reclining in the bed. She is well-nourished, well- developed and in no acute distress Mental status: The patient is awake, alert and oriented 3. Her speech is clear. Cranial nerves: 2-12 intact as tested Motor: Strength is 5/5 throughout with the exception of the proximal right upper extremity, secondary to rotator cuff injury Coordination: Finger to nose testing is intact. A mild intention tremor remains, bilaterally. [id number] testing continues to be slightly ataxic however, improved from yesterday - Labs CBC & Chem 7: 11/08/19 18:10 11/08/19 18:10 Labs: Abnormal Lab Results - Last 24 Hours (Table) 11/09/19 11/09/19 11/10/19 Range/Units 17:28 20:44 07:01 POC Glucose (mg/dL) 119 H 238 H 209 H (75-99) mg/dL 11/10/19 Range/Units 11:33 POC Glucose (mg/dL) 120 H (75-99) mg/dL Microbiology - Last 24 Hours (Table) 11/09/19 18:11 Urine Culture - Preliminary Urine,Clean Catch 11/08/19 18:10 Blood Culture - Preliminary Blood No Growth after 24 hours Assessment and Plan Assessment: Impressions: 1. Ataxia and generalized weakness-CT angio reveals signs of bilateral vertebral artery stenosis 2, Mild improvement today 3. Reported concussion in March 2019-new onset headaches as of August 2019 Plan: 1. Add Plavix 75 mg daily, to the patient's aspirin 2. Continue statin 3. Consider vascular consultation regarding bilateral vertebral artery stenosis Time with Patient: Less than 30 (spent 25 minutes with patient via teleneurology)
[2019-11-10 17:16] LABS: Glucose,Whole Blood 184 mg/dL (75-99)
[2019-11-10 20:43] LABS: Glucose,Whole Blood 185 mg/dL (75-99)
[2019-11-10] MEDS: ATORVASTATIN 40 MG TAB PO SCH (21:08)
[2019-11-10] MEDS: INSULIN DETEMIR (LEVEMIR) 100 UNIT/ML SYR SQ SCH (21:09)
[2019-11-10] MEDS: METOPROLOL SUCCINATE (ER) 50 MG TAB.ER.24H PO SCH (21:09)
--- NOTE | 2019-11-10 21:50 | PN ---
PROGRESS NOTE DATE OF SERVICE: 11/10/2019 This 69-year-old woman who was admitted with significant weakness and falls also had some fever. The patient is started on empiric antibiotics. Patient closely monitored. The patient also had significant adrenal insufficiency also. The most recent chest x- ray which I reviewed personally showed some minimal abnormalities. The patient also had CT of [place] with contrast which showed severe otherwise close of bilateral vertebral arteries at the level of the C1 with short-segment stenosis more than 70%, right internal carotid artery terminus showed a saccular aneurysm, probably bony exostosis was also noted short segment of mild significant stenosis of the right posterior cerebral artery was also noted. Neurology is following the patient closely. PAST MEDICAL HISTORY: Reviewed. REVIEW OF SYSTEMS: CARDIOVASCULAR SYSTEM: No angina or palpitations. RESPIRATION as mentioned earlier. GI: As mentioned earlier. no dysuria. Nervous system: No numbness or weakness. CURRENT MEDICATIONS: Tylenol, Fioricet, [place], aspirin, Lipitor, iron sulfate. Neurontin, Solu-Cortef, Dilaudid, NovoLog scale Levemir, Levaquin, Magnesium oxide, Antivert, melatonin, Reglan, Toprol-XL, Narcan, Zofran, Protonix, vitamin B12, Effexor, doses reviewed. PHYSICAL EXAM: Patient is alert, oriented x3. Pulse 61. Blood pressure 117/82, respiration 18, temperature 98.4, pulse ox 94% on room air. HEENT: Conjunctivae normal. Oral mucosa moist. Neck is no jugular venous distention. No carotid bruit. No lymph node enlargement. Cardiovascular: S1, S2 muffled. RESPIRATIONS: Breath sounds diminished in the bases. A few scattered rhonchi. ABDOMEN: Soft. Obese. LEGS: Bilateral leg edema. Otherwise, diffusely wasted, weak, gait dysfunction present. SKIN: No ulcer, rash or bleeding. LABS: Accu-Cheks 121, 84. Other labs are WBC 15.9. Sodium is 132. ASSESSMENT: 1. Generalized fall and gait dysfunction for possibly vertebrobasilar insufficiency. 2. Fever, increased WBC. Possible sepsis on empiric antibiotics. 3. 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 4. Right internal carotid artery, 2 mm saddle aneurysm possibly. 5. Short-segment of mild degree stenosis in the right posterior cerebral artery. 6. Hyponatremia. 7. Diabetes mellitus type 2. 8. Adrenocortical insufficiency. 9. History of severe intractable headache and previous history of migraine cephalalgia. 10.Gait dysfunction. 11.History of recurrent urinary tract infections. 12.Old right internal capsule lacunar infarct history. 13.Chronic obstructive pulmonary disease. 14.History of deep vein thrombosis. 15.Fibromyalgia. 16.Hypertension. 17.Hyperlipidemia. 18.History of pneumonia. 19.History of sleep apnea. 20.History of bronchitis. 21.History of hyperparathyroidism. 22.History exophthalmos. 23.History of degenerative joint disease. 24.History of toe amputation. 25.History of cardiac murmur. 26.History of ESBL MRSA. 27.History of cholecystectomy. 28.FULL CODE. RECOMMENDATIONS AND DISCUSSION: Recommend to continue current medications. Continue to monitor. Symptomatic treatment with antiplatelets agents and Lipitor. Otherwise, at this time, I would also recommend continue with neurology evaluation and continue the current medications. Guarded prognosis because of multiple complex medical issues. Further recommendations to follow. Also recommend vascular surgery evaluation down the line. MMODL / IJN: [id number] /
[2019-11-11] MEDS: HYDROmorphone 0.5 MG/0.5 ML SYRINGE IVP PRN ×7 (00:48→23:21)
[2019-11-11 07:36] LABS: Basophils % (A) 0 %; Eosinophils # (A) 0.1 k/uL (0-0.7); Eosinophils % (A) 1 %; HCT 36.9 % (34.0-46.0); Lymphocytes % (A) 25 %; MCH 29.1 pg (25.0-35.0); MCHC 31.4 g/dL (31.0-37.0); MCV 92.8 fL (80.0-100.0); Mean Platelet Volume 7.9; Monocytes # (A) 0.4 k/uL (0-1.0); Monocytes % (A) 5 %; Neutrophils # (A) 5.3 k/uL (1.3-7.7); Neutrophils % (A) 68 %; Platelet Count 211 k/uL (150-450); RBC 3.98 m/uL (3.80-5.40); RDW 14.7 % (11.5-15.5); WBC 7.8 k/uL (3.8-10.6)
[2019-11-11 07:39] LABS: Glucose,Whole Blood 163 mg/dL (75-99)
[2019-11-11 07:47] LABS: HGB 11.6 gm/dL (11.4-16.0)
[2019-11-11 07:48] LABS: African American GFR (CKD) >90 (>60 ml/min/1.73 sqM); Anion Gap 7 mmol/L; Blood Urea Nitrogen 12 mg/dL (7-17); Calcium 8.2 mg/dL (8.4-10.2); Carbon Dioxide 27 mmol/L (22-30); Chloride 103 mmol/L (98-107); Glucose 135 mg/dL (74-99); Non-African American GFR(CKD) >90 (>60 ml/min/1.73 sqM); Potassium 3.7 mmol/L (3.5-5.1); Sodium 137 mmol/L (137-145)
[2019-11-11] MEDS: BUTALB/APAP/CAFF 50-325-40MG TAB PO PRN (08:20)
[2019-11-11] MEDS: MULTIVITAMINS, THERA 1 EACH TAB PO SCH (08:21)
[2019-11-11] MEDS: LISINOPRIL 10 MG TAB PO SCH (08:21)
[2019-11-11] MEDS: CHOLECALCIFEROL 1,000 UNIT TAB PO SCH (08:21)
[2019-11-11] MEDS: PANTOPRAZOLE 40 MG TABLET PO SCH (08:21)
[2019-11-11] MEDS: GABAPENTIN 100 MG CAP PO SCH ×3 (08:21→21:15)
[2019-11-11] MEDS: THIAMINE 100 MG TAB PO SCH (08:21)
[2019-11-11] MEDS: VENLAFAXINE HCL ER 75 MG CAP PO SCH (08:21)
[2019-11-11] MEDS: MAGNESIUM OXIDE 400 MG TAB PO SCH ×2 (08:21→21:15)
[2019-11-11] MEDS: INSULIN ASPART (NovoLOG) 100 UNIT/ML VIAL SQ SCH ×6 (08:22→22:21)
[2019-11-11] MEDS: HYDROCORTISONE SUCCINATE 100 MG/2 ML VIAL IV SCH ×3 (08:22→23:20)
[2019-11-11] MEDS: FERROUS SULFATE 325 MG TAB PO SCH (08:22)
[2019-11-11] MEDS: ASPIRIN 81 MG PO SCH (08:22)
[2019-11-11] MEDS: PROCHLORPERAZINE 10 MG TAB PO SCH ×3 (08:22→21:19)
[2019-11-11] MEDS: BRIMONIDINE TARTRATE 0.2% DROPS 5 ML BTL RIGHT EYE SCH ×2 (08:44→21:15)
[2019-11-11 11:29] LABS: Glucose,Whole Blood 78 mg/dL (75-99)
[2019-11-11] MEDS: CLOPIDOGREL 75 MG TAB PO SCH (15:14)
[2019-11-11] MEDS: SODIUM CHLORIDE 0.9% 1,000 ML IV SCH ×2 (15:15→21:14)
[2019-11-11] MEDS: LEVOFLOXACIN 500MG-D5W PMX 500 MG in DEXTROSE/WATER 1 100ML.BAG IVPB SCH (15:20)
[2019-11-11 16:52] LABS: Glucose,Whole Blood 277 mg/dL (75-99)
[2019-11-11] MEDS: HYDROcodone/APAP 10-325MG 1 EACH TAB PO PRN (17:42)
--- NOTE | 2019-11-11 19:36 | PN ---
PROGRESS NOTE DATE OF SERVICE: 11/11/2019 This 69-year-old woman was admitted with multiple medical problems,thought to have generalized fall and dysfunction secondary to vertebrobasilar insufficiency. The patient also had a fever, increased WBC. Patient empirically treated for sepsis also. Patient also had adrenocortical insufficiency, severe atherosclerotic narrowing of the bilateral vertebral artery noted. Neurology, Dr. Ruby has recommended dual antiplatelet treatment with aspirin and Plavix at this time. The patient being closely monitored. The patient had multiple abnormalities in the CT angiogram. That would require follow up with the vascular surgeon, possibly as an outpatient. PAST MEDICAL HISTORY: Reviewed. REVIEW OF SYSTEMS: Cardiovascular is no angina or palpitations. Respiratory: as mentioned earlier. GI no nausea or vomiting. no dysuria or hematuria. Nervous system: No numbness weakness. CURRENT MEDICATIONS: 1. Tylenol 1000 mg daily p.r.n. 2. Fioricet 50 mg. 3. [place] 10 mg t.i.d. 4. Aspirin 81 mg. 5. Lipitor 40 mg q.h.s. 6. Brimonidine. 7. Vitamin D3. 8. Plavix 75 mg p.o. daily. 9. Iron sulfate 320 mg daily. 10.Neurontin 200 mg t.i.d. 11.Solu-Cortef 50 mg IV q.8h. 12.Dilaudid. 13.NovoLog. 14.Levemir 26 units subcu q.h.s. 15.Zestril. 16.Antivert. 17.Melatonin. 18.Reglan. 19.Toprol-XL. 20.Narcan. 21.Zofran. 22.Protonix. 23.Vitamin B1. 24.Effexor XR. PHYSICAL EXAMINATION: Patient is alert, oriented x3. Pulse 51, blood pressure 160/76, respirations 16, temperature 97.9, pulse ox 93% on room air. HEENT is conjunctivae normal. NECK: No JVD. CARDIOVASCULAR: S1, S2 muffled. RESPIRATORY SYSTEM: Breath sounds diminished at the bases. A few scattered rhonchi and crackles. ABDOMEN: Soft, nontender. LEGS are no edema. No swelling. NERVOUS SYSTEM: Diffusely weak. LABS: At this time show CBC within normal limits. Sodium 137, potassium 3.7, glucose 135, calcium is 8.2. ASSESSMENT: 1. Generalized weakness and fall and possibly vertebrobasilar insufficiency. 2. Fever, increased WBC, possible sepsis on empiric antibiotics. 3. 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 4. 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 5. Short segment of mild degree of stenosis of the right posterior cerebral artery. 6. Hyponatremia. 7. Diabetes mellitus type 2. 8. Adrenocortical insufficiency. 9. History of severe intractable headache and previous history of migraine cephalalgia. 10.Gait dysfunction. 11.History of recurrent urinary tract infection. 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 13.Chronic obstructive pulmonary disease. 14.History of deep vein thrombosis. 15.Fibromyalgia. 16.Hypertension. 17.Hyperlipidemia. 18.History of pneumonia. 19.History of sleep apnea. 20.History of bronchitis. 21.History of hyperparathyroidism. 22.History of exophthalmos. 23.History of degenerative joint disease. 24.History of toe amputation. 25.History of cardiac murmur. 26.History of ESBL MRSA. 27.History of cholecystectomy. 28.FULL CODE. RECOMMENDATIONS AND DISCUSSION: Recommend to continue current medications, symptomatic treatment. Continue with IV steroids. Continue with empiric antibiotics. Cultures are negative so far. We will continue to monitor. Otherwise, discuss with neurology. Continue with dual antiplatelet treatment and also PT/OT evaluation. Dr. Gonsales will follow. MMODL / IJN: [id number] /
[2019-11-11] MEDS: METOPROLOL SUCCINATE (ER) 50 MG TAB.ER.24H PO SCH (21:14)
[2019-11-11] MEDS: ATORVASTATIN 40 MG TAB PO SCH (21:14)
[2019-11-11] MEDS: INSULIN DETEMIR (LEVEMIR) 100 UNIT/ML SYR SQ SCH (22:14)
[2019-11-11 22:22] LABS: Glucose,Whole Blood 186 mg/dL (75-99)
[2019-11-12] MEDS: HYDROcodone/APAP 10-325MG 1 EACH TAB PO PRN (01:58)
[2019-11-12] MEDS: BUTALB/APAP/CAFF 50-325-40MG TAB PO PRN ×2 (02:00→11:16)
[2019-11-12] MEDS: HYDROmorphone 0.5 MG/0.5 ML SYRINGE IVP PRN ×7 (03:09→23:19)
[2019-11-12] MEDS: SODIUM CHLORIDE 0.9% 1,000 ML IV SCH ×2 (05:57→08:57)
[2019-11-12 07:23] LABS: Glucose,Whole Blood 157 mg/dL (75-99)
[2019-11-12] MEDS: INSULIN ASPART (NovoLOG) 100 UNIT/ML VIAL SQ SCH ×7 (07:53→21:11)
[2019-11-12] MEDS: PROCHLORPERAZINE 10 MG TAB PO SCH ×3 (08:00→21:12)
[2019-11-12] MEDS: VENLAFAXINE HCL ER 75 MG CAP PO SCH (08:01)
[2019-11-12] MEDS: HYDROCORTISONE SUCCINATE 100 MG/2 ML VIAL IV SCH ×3 (08:02→23:19)
[2019-11-12] MEDS: LISINOPRIL 10 MG TAB PO SCH (08:03)
[2019-11-12] MEDS: GABAPENTIN 100 MG CAP PO SCH ×3 (08:04→21:09)
[2019-11-12] MEDS: MULTIVITAMINS, THERA 1 EACH TAB PO SCH (08:04)
[2019-11-12] MEDS: CHOLECALCIFEROL 1,000 UNIT TAB PO SCH (08:04)
[2019-11-12] MEDS: FERROUS SULFATE 325 MG TAB PO SCH (08:05)
[2019-11-12] MEDS: ASPIRIN 81 MG PO SCH (08:06)
[2019-11-12] MEDS: PANTOPRAZOLE 40 MG TABLET PO SCH (08:06)
[2019-11-12] MEDS: MAGNESIUM OXIDE 400 MG TAB PO SCH ×2 (08:06→21:10)
[2019-11-12] MEDS: CLOPIDOGREL 75 MG TAB PO SCH (08:06)
[2019-11-12] MEDS: THIAMINE 100 MG TAB PO SCH (08:10)
[2019-11-12] MEDS: BRIMONIDINE TARTRATE 0.2% DROPS 5 ML BTL RIGHT EYE SCH ×2 (08:14→21:53)
[2019-11-12 09:11] LABS: African American GFR (CKD) >90 (>60 ml/min/1.73 sqM); Anion Gap 10 mmol/L; Blood Urea Nitrogen 12 mg/dL (7-17); Calcium 8.5 mg/dL (8.4-10.2); Carbon Dioxide 26 mmol/L (22-30); Chloride 99 mmol/L (98-107); Glucose 280 mg/dL (74-99); Non-African American GFR(CKD) >90 (>60 ml/min/1.73 sqM); Sodium 135 mmol/L (137-145)
[2019-11-12 09:14] LABS: Basophils % (A) 0 %; Eosinophils # (A) 0.1 k/uL (0-0.7); Eosinophils % (A) 1 %; HCT 39.2 % (34.0-46.0); Lymphocytes # (A) 2.1 k/uL (1.0-4.8); Lymphocytes % (A) 24 %; MCH 30.6 pg (25.0-35.0); MCHC 33.2 g/dL (31.0-37.0); MCV 92.1 fL (80.0-100.0); Mean Platelet Volume 8.5; Monocytes # (A) 0.4 k/uL (0-1.0); Monocytes % (A) 5 %; Neutrophils # (A) 6.2 k/uL (1.3-7.7); Neutrophils % (A) 69 %; Platelet Count 203 k/uL (150-450); RBC 4.26 m/uL (3.80-5.40); RDW 14.7 % (11.5-15.5); WBC 8.9 k/uL (3.8-10.6)
[2019-11-12 09:15] LABS: Potassium 3.8 mmol/L (3.5-5.1)
[2019-11-12] MEDS ORDERED: ACETAMINOPHEN IV (For NPO) 1,000 MG in EMPTY BAG 1 BAG IVPB ONE (10:52)
[2019-11-12] MEDS ORDERED: MAGNESIUM SULFATE-D5W PMX 1 GM in DEXTROSE/WATER 1 100ML.BAG IVPB ONE (10:53)
[2019-11-12 12:06] LABS: Glucose,Whole Blood 119 mg/dL (75-99)
[2019-11-12] MEDS: ERTAPENEM 1 GM in SODIUM CHLORIDE 0.9% 50 ML IVPB SCH (13:08)
--- NOTE | 2019-11-12 13:19 | XR ---
EXAMINATION TYPE: XR Hip RT and AP Pelvis DATE OF EXAM: 11/12/2019 COMPARISON: 03/27/2019 pelvic x-ray and CT dated 03/12/2019 HISTORY: Pelvic and right hip pain after fall TECHNIQUE: A single AP view of the pelvis is obtained. Two views of the right hip are obtained. FINDINGS: Again there is diffuse osseous demineralization. There is no acute fracture/dislocation tony dent in the pelvis. The hip and sacroiliac joints appear symmetric and display mild degenerative ethan nge. The overlying soft tissue appears unremarkable. Postsurgical change of the lumbosacral junction . Old healed fracture deformities of the bilateral pubic rami are redemonstrated as seen on the prior . Two views of right hip show no acute fracture or dislocation. No focal lytic or sclerotic lesion see n in the proximal right femur. The overlying soft tissue is unremarkable. Likely myositis ossifican s is redemonstrated from the prior of 03/27/2019 within the gluteal musculature. Phleboliths are seen within the pelvis. IMPRESSION: There is no acute fracture or dislocation in the pelvis or right hip. 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
[2019-11-12] MEDS ORDERED: LEVOFLOXACIN 500 MG TAB PO SCH (16:00)
[2019-11-12 16:01] LABS: Appearance,Urine Clear (Clear); Bilirubin,Urine Negative (Negative); Blood,Urine Negative (Negative); Color,Urine Light Yellow; Glucose,Urine (UA) 4+ (Negative); Ketones,Urine Negative (Negative); Leukocyte Esterase,Urine Negative (Negative); Nitrite,Urine Negative (Negative); Protein,Urine Trace (Negative); Specific Gravity,Urine 1.018 (1.001-1.035); Urobilinogen,Urine <2.0 mg/dL (<2.0)
[2019-11-12 16:50] LABS: Glucose,Whole Blood 263 mg/dL (75-99)
--- NOTE | 2019-11-12 19:27 | P.PN ---
Subjective Progress Note Date: 11/12/19 This is a pleasant 69-year-old female admitted with generalized weakness, status post fall 2, migraine headache, neck pain, fever, leukocytosis and multiple other medical issues. Initially had planned for discharge but urine cultures now returning back with ESBL. Antibiotics adjusted, changed over to ertapenem. Neurology also requesting vascular surgery consult regarding bilateral vertebral artery stenosis as suggested on CTA. Complains of right hip pain, spasms in the right hamstring area, secondary to fall at home. Reports she has been walking around in room with walker with no lightheadedness, dizziness or focal deficits. Denies chest pain, palpitations or shortness of breath. Complains of headache/neck ache. Objective - Vital Signs Vital signs: Vital Signs Temp 98.6 F 11/12/19 07:07 Pulse 58 L 11/12/19 07:07 Resp 18 11/12/19 07:07 BP 177/92 11/12/19 07:07 Pulse Ox 97 11/12/19 07:07 Intake & Output 11/11/19 11/12/19 11/12/19 18:59 06:59 18:59 Intake Total 540 540 Balance 540 540 Intake: Oral 540 540 Other: Voiding Method Toilet # Voids 4 4 1 - Exam - Exam General: Lying in bed, no acute distress Eyes: PERRL, EOMI, conjunctiva normal HENT: normocephalic, mucus membranes moist Neck: supple, no JVD Lungs: normal respiratory effort, no wheezes or rales CV: Regular rate and rhythm, no murmur. Peripheral pulses 2+ Abdomen: soft, nondistended, no organomegaly Lymph: no cervical or axillary LAD Skin: warm and dry. Neuro: A&Ox3, normal mood and affect - Labs CBC & Chem 7: 11/12/19 08:16 11/12/19 08:16 Labs: Abnormal Lab Results - Last 24 Hours (Table) 11/11/19 11/11/19 11/12/19 Range/Units 16:50 22:14 07:07 Sodium (137-145) mmol/L Creatinine (0.52-1.04) mg/dL Glucose (74-99) mg/dL POC Glucose (mg/dL) 277 H 186 H 157 H (75-99) mg/dL 11/12/19 Range/Units 08:16 Sodium 135 L (137-145) mmol/L Creatinine 0.43 L (0.52-1.04) mg/dL Glucose 280 H (74-99) mg/dL POC Glucose (mg/dL) (75-99) mg/dL Microbiology - Last 24 Hours (Table) 11/09/19 18:11 Urine Culture - Preliminary Urine,Clean Catch Escherichia coli Group D Enterococcus 11/08/19 18:10 Blood Culture - Preliminary Blood No Growth after 72 hours 11/09/19 16:00 Blood Culture - Preliminary Blood No Growth after 48 hours Assessment and Plan Assessment: Acute UTI with ESBL Generalized weakness with ataxia, CTA reveals bilateral vertebral artery stenosis as per neurology Status post falls secondary to the above Intractable migraine with aura, with status migrainosus Reported concussion in fall of 2018 Adrenal insufficiency Diabetes mellitus type 2, hyperglycemia, steroid-induced Plan: Continue on current medication regime ,monitoring and symptomatic treatment. PT/OT consulted. Migraine cocktail ordered; Tylenol, magnesium along with fiorcet. Maintain on Plavix, aspirin, statin Patient reports that she when she fell she landed on her right hip which continues to have signific ant pain, x-ray right hip and pelvis ordered. Urine cultures reporting ESBL, antibiotics adjusted, placed on ertapenem, infectious disease consulted. Neurology recommending vascular consult secondary to bilateral vertebral artery stenosis-vascular surgery consulted. Discharge planning in progress soon. The impression and plan of care has been dictated as directed. : I performed a history and examination of this patient, discussed the same with the dictator. I agree with the dictator's note ,documented as a scribe. Any additional findings or plans will be noted.
[2019-11-12 21:02] LABS: Glucose,Whole Blood 188 mg/dL (75-99)
[2019-11-12] MEDS: METOPROLOL SUCCINATE (ER) 50 MG TAB.ER.24H PO SCH (21:09)
[2019-11-12] MEDS: ATORVASTATIN 40 MG TAB PO SCH (21:09)
[2019-11-12] MEDS: MELATONIN 5 MG TABLET PO PRN (21:09)
[2019-11-12] MEDS: INSULIN DETEMIR (LEVEMIR) 100 UNIT/ML SYR SQ SCH (21:10)
--- NOTE | 2019-11-12 22:09 | P.PN ---
Subjective Progress Note Date: 11/12/19 Patient examined and chart reviewed. Patient has improved with her balance and is working with physical therapy. She was admitted on Monday after having 2 falls. The patient has now been confirmed to have a urinary tract infection requiring IV antibiotics and will have of her prolonged hospitalization now. Overall the patient has been fairly stable and has no new complaints. The patient did undergo neuroimaging studies which did show that she has a vertebral basilar artery insufficiency. She's been placed on antiplatelet therapy now with Plavix and tolerated this without difficulty. Objective - Vital Signs Vital signs: Vital Signs Temp 98.9 F 11/12/19 14:34 Pulse 66 11/12/19 14:34 Resp 16 11/12/19 14:34 BP 160/83 11/12/19 14:34 Pulse Ox 99 11/12/19 14:34 Intake & Output 11/12/19 11/12/19 11/13/19 06:59 18:59 06:59 Intake Total 540 540 Balance 540 540 Intake: Oral 540 540 Other: Voiding Method Toilet # Voids 4 6 - Exam Patient examined chart reviewed. Neurological exam Mental status: Patient awake alert oriented 3. Speech is fluent. Affect appropriate. Pupils are 2 mm equally reactive to light and accommodation. Cranial nerve examination: Cranial nerves III through XII are intact. Motor examination: Patient able to move all 4 extremities equally. Strength is 5 out of 5 throughout. Pronator drift negative. No tremors or fasciculations noted. Deep tendon reflexes: +1 over biceps triceps brachioradialis. Patellar reflexes are absent bilaterally. Ankle jerks are diminished bilaterally. Plantar responses are withdrawal bilaterally no ankle clonus elicited. Sensory examination grossly intact to light touch throughout. Gait examination: Deferred - Labs CBC & Chem 7: 11/12/19 08:16 11/12/19 08:16 Labs: Abnormal Lab Results - Last 24 Hours (Table) 11/11/19 11/12/19 11/12/19 Range/Units 22:14 07:07 08:16 Sodium 135 L (137-145) mmol/L Creatinine 0.43 L (0.52-1.04) mg/dL Glucose 280 H (74-99) mg/dL POC Glucose (mg/dL) 186 H 157 H (75-99) mg/dL Urine Protein (Negative) Urine Glucose (UA) (Negative) 11/12/19 11/12/19 11/12/19 Range/Units 11:37 15:45 16:43 Sodium (137-145) mmol/L Creatinine (0.52-1.04) mg/dL Glucose (74-99) mg/dL POC Glucose (mg/dL) 119 H 263 H (75-99) mg/dL Urine Protein Trace H (Negative) Urine Glucose (UA) 4+ H (Negative) 11/12/19 Range/Units 21:01 Sodium (137-145) mmol/L Creatinine (0.52-1.04) mg/dL Glucose (74-99) mg/dL POC Glucose (mg/dL) 188 H (75-99) mg/dL Urine Protein (Negative) Urine Glucose (UA) (Negative) Microbiology - Last 24 Hours (Table) 11/08/19 18:10 Blood Culture - Preliminary Blood No Growth after 96 hours 11/09/19 16:00 Blood Culture - Preliminary Blood No Growth after 72 hours 11/09/19 18:11 Urine Culture - Final Urine,Clean Catch Escherichia coli Enterococcus faecalis Assessment and Plan Assessment: This is a 69-year-old female with a history of multiple medical problems involving adrenocorticoid insufficiency who presented over the weekend with increasing falls. She has found on neuroimaging studies to have evidence of abiodun tebral basilar artery insufficiency most likely due to underlying atherosclerotic disease. Patient now has been placed on Plavix antiplatelet therapy and is tolerating this without difficulty. This patient does have a neurologist she follows with closely in the community, Dr. Barry. I advised th e patient that she needs to coordinate care with him carefully on this issue and be carefully monitoring her risk for stroke. The patient also should have on discharge planning physical therapy at home. She does still continue to be a fall risk. The patient is not interested at this time in acute rehab. Next This patient's admission will be somewhat prolonged due to now the new finding of urinary tract infection requiring IV antibiotics. Neurology will continue to follow closely along as needed on this case. Please notify patient when she is getting close to discharge and neurology will reevaluate again prior to discharge. There are any questions or concerns please do not hesitate to contact Dr. Carvajal. Please note that Dr. Gonzalez will be taking over the service on Monday and Dr. Flores will be available for tele-neurology consult over the weekend. Alison Carvajal M.D. Board Certified in Neurology and Sleep Medicine
--- NOTE | 2019-11-13 00:46 | P.CONS ---
History of Present Illness - Reason for Consult Consult date: 11/12/19 UTI Requesting physician: Andrew Gonsales - Chief Complaint Weakness and urinary frequency and burning x few days - History of Present Illness Patient is a 69-year-old female with a past medical history significant for recurrent urinary tract infection and her multiple antibiotic allergies patient presenting to the ER at [facility] about 4 days ago with chief complaints of feeling very weak difficulty getting around because of fall week she was and apparently the patient had did fell because she lost her balance but did not pass out with the symptom had the patient has been evaluated by the ER physician patient had did have a multiple work-up chest x- ray was negative for any reversible process being evaluated by neurology she also have a low-grade fever 100.2 on the patient had did have a UA obtained which was essentially negative though urine culture not showing ESBL E. coli and Enterococcus faecalis patient who was initially treated with a Levaquin antibiotic has been switched over to ertapenem today infectious was consulted for further management of antibiotic therapy patient has been complaining of significant frequency of urine over the last 24 to 48-hour burning and some discomfort in the right flank area chief complaint of nausea but no vomiting, no chest pain shortness of breath or cough Review of Systems Positive point has been mentioned in HPI rest of the systems are negative Past Medical History Past Medical History: COPD, Diabetes Mellitus, Deep Vein Thrombosis (DVT), Fibromyalgia, Hyperlipidemia, Hypertension, Osteoarthritis (OA), Pneumonia, Renal Disease, Sleep Apnea/CPAP/BIPAP, Vascular Disorder Additional Past Medical History / Comment(s): bronchitis, Cpap, UTIs, UTI with sepsis, pyelonephritis/sepsis, nephrolithiasis and has had renal failure d/t blockages, adrenal insufficiency, hyperparathyroidism-recently saw specialist and will have surgery once her health improves, arthritis in multiple joints, DJD, past bilateral pelvic fractures, 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, R wrist/elbow nerve repair, bone removed R shoulder, 4th toe R foot partial amputation, bilateral feet/bunionectomies, R knee arthroscopies, R orbit decompression with ethmoidectomy and eyelid lift, EGD, colonoscopies, cystocopie s, lithotripsy/stents, total hysterectomy, bilateral breast reduction, bilateral cataract removals.Parathyroid surgery - April 2019, pain clinic procedures Past Anesthesia/Blood Transfusion Reactions: No Reported Reaction Additional Past Anesthesia/Blood Transfusion Reaction / Comm: never recieved blood Past Psychological History: No Psychological Hx Reported Additional Psychological History / Comment(s): Pt resides with her spouse. She uses a walker if out shopping. She drives. She has a nebulizer, cpap, bsc, shower chair, bp machine, dexcom monitor system for her bs. Smoking Status: Never smoker Past Alcohol Use History: Occasional Additional Past Alcohol Use History / Comment(s): no alcohol Past Drug Use History: None Reported - Past Family History Father Family Medical History: Coronary Artery Disease (CAD), CVA/TIA, Diabetes Mellitus, Myocardial Infarction ([place]), Pneumonia Additional Family Medical History / Comment(s): Father at the age of 78yrs from [place] and pneumonia. Mother Family Medical History: Cancer Additional Family Medical History / Comment(s): Mother had uterine cancer. She recently at the age of 96yrs old. Medications and Allergies Home Medications Medication Instructions Recorded Confirmed Type Cholecalciferol [Vitamin D3 (25 3,000 unit PO DAILY@0700 12/01/14 11/08/19 History Mcg = 1000 Iu)] Metoprolol Succinate (ER) [Toprol 50 mg PO HS 07/06/17 11/08/19 History XL] Meclizine [Antivert] 25 mg PO TID PRN 11/26/17 11/08/19 History Hydrocortisone [Cortef] 15 mg PO AC-BRKFST 05/18/18 11/08/19 History Hydrocortisone [Cortef] 5 mg PO HS 06/26/18 11/08/19 History Aspirin 81 mg PO DAILY #0 07/02/18 11/08/19 Rx Glucagon Emergency Kit 1 mg IM ONCE PRN 08/12/18 11/08/19 History Cranberry 300mg 300 mg PO BID 10/08/18 11/08/19 History Ferrous Sulfate [Iron (65 MG 325 mg PO DAILY 10/08/18 11/08/19 History Elemental)] Folic Acid 0.4 mg PO DAILY 10/08/18 11/08/19 History L.acidoph,Paracasei, B.lactis 2 cap PO BID 10/08/18 11/08/19 History [Probiotic] Melatonin 5 mg PO HS PRN 10/08/18 11/08/19 History Multivitamins, Thera Liquid 30 ml PO DAILY 10/08/18 11/08/19 History [Theragran Liquid (formulary)] Potassium 99 mg PO DAILY 10/08/18 11/08/19 History Thiamine [Vitamin B-1] 100 mg PO DAILY 10/08/18 11/08/19 History Vitamin B-Complex Drops 1 drop PO BID 10/08/18 11/08/19 History Lisinopril [Zestril] 15 mg PO DAILY 11/08/18 11/08/19 History Atorvastatin [Lipitor] 40 mg PO HS #30 tab 11/16/18 11/08/19 Rx HYDROcodone/APAP 10-325MG [[place] 1 tab PO TID PRN 12/26/18 11/08/19 History 10-325] Pantoprazole [Protonix] 40 mg PO DAILY 01/29/19 11/08/19 History Hydrocortisone [Cortef] 10 mg PO AC-LUNCH 08/30/19 11/08/19 History Brimonidine Tartrate [Alphagan P 1 drop RIGHT EYE BID 08/31/19 11/08/19 History 0.2% Ophth Soln] Acetaminophen [Tylenol Extra 1,000 mg PO DAILY PRN 09/12/19 11/08/19 History Strength] Magnesium Oxide [Mag-Ox] 400 mg PO BID #1 tab 09/16/19 11/08/19 Rx Insulin Aspart [NovoLOG Flexpen] 18 units SQ AC-LUNCH #0 09/24/19 11/08/19 Rx Insulin Aspart [NovoLOG Flexpen] 22 units SQ AC-SUPPER #0 09/24/19 11/08/19 Rx Insulin Aspart [NovoLOG Flexpen] 14 units SQ AC-BRKFST 10/28/19 11/08/19 History Metoclopramide [Reglan] 5 mg PO DAILY PRN 10/28/19 11/08/19 History Butalb/APAP/Caff 50-325-40Mg 1 tab PO Q4H PRN #18 tablet 10/30/19 11/08/19 Rx [Fioricet 50-325-40] Gabapentin [Neurontin] 200 mg PO TID #18 cap 10/30/19 11/08/19 Rx Ondansetron HCl [Zofran] 4 mg PO Q8H PRN #30 tab 10/30/19 11/08/19 Rx Insulin Glargine,Hum.rec.anlog 26 unit SQ HS 11/08/19 11/08/19 History [Lantus Solostar] Prochlorperazine [Compazine] 5 mg PO TID 11/08/19 11/08/19 History Venlafaxine HCl [Effexor XR] 75 mg PO DAILY 11/08/19 11/08/19 History Allergies Allergy/AdvReac Type Severity Reaction Status Date / Time butorphanol tartrate Allergy BLISTERS Verified 11/08/19 20:28 [From Stadol] IN MOUTH ceftriaxone [From Rocephin] Allergy Unknown Verified 11/08/19 20:28 clarithromycin [From Biaxin] Allergy Rash/Hives Verified 11/08/19 20:28 codeine Allergy Rash/Hives Verified 11/08/19 20:28 ergotamine tartrate Allergy Unknown Verified 11/08/19 20:28 [From Cafergot] erythromycin base Allergy RASH, GI Verified 11/08/19 20:28 [From E-Mycin] SYMPTOMS ketorolac tromethamine Allergy Rash/Hives Verified 11/08/19 20:28 [From Toradol] liraglutide [From Victoza] Allergy Rash/Hives Verified 11/08/19 20:28 morphine Allergy Rash/Hives Verified 11/08/19 20:28 Penicillins Allergy Rash/Hives Verified 11/08/19 20:28 pentazocine lactate Allergy SEVERE Verified 11/08/19 20:28 [From Talwin] BLISTERS IN MOUTH pregabalin [From Lyrica] Allergy Rash/Hives Verified 11/08/19 20:28 propoxyphene HCl Allergy Rash/Hives Verified 11/08/19 20:28 [From Darvon] Sulfa (Sulfonamide Allergy Rash/Hives Verified 11/08/19 20:28 Antibiotics) tramadol Allergy Unknown Verified 11/08/19 20:28 monosodium glutamate [MSG] AdvReac Nausea & Verified 11/08/19 20:28 Vomiting nalbuphine HCl [From Nubain] AdvReac Nausea & Verified 11/08/19 20:28 Vomiting Physical Exam Vitals: Vital Signs Temp Pulse Resp BP BP Pulse Ox 11/12/19 19:20 98.2 F 63 18 184/97 100 11/12/19 14:34 98.9 F 66 16 160/83 99 11/12/19 07:07 98.6 F 58 L 18 177/92 97 11/12/19 04:12 173/89 11/12/19 01:30 98 F 60 20 92 L Intake and Output 11/12/19 11/12/19 11/13/19 14:59 22:59 06:59 Intake Total 540 Balance 540 Intake: Oral 540 Other: Voiding Method Toilet # Voids 1 6 GENERAL DESCRIPTION: Elderly female lying in bed, no distress. No tachypnea or accessory muscle of respiration use. HEENT: Shows Pallor , no scleral icterus. Oral mucous membrane is dry. NECK: Trachea central, no thyromegaly. LUNGS: Unlabored breathing. Clear to auscultation anteriorly. No wheeze or crackle. HEART: S1, S2, regular rate and rhythm. ABDOMEN: Soft, no tenderness , guarding or rigidity EXTREMITIES: No edema of feet. SKIN: No rash, no masses palpable. NEUROLOGICAL: The patient is awake, alert, oriented x3, mood and affect normal. Results CBC & Chem 7: 11/12/19 08:16 11/12/19 08:16 Labs: Abnormal Lab Results - Last 24 Hours (Table) 11/12/19 11/12/19 11/12/19 Range/Units 07:07 08:16 11:37 Sodium 135 L (137-145) mmol/L Creatinine 0.43 L (0.52-1.04) mg/dL Glucose 280 H (74-99) mg/dL POC Glucose (mg/dL) 157 H 119 H (75-99) mg/dL Urine Protein (Negative) Urine Glucose (UA) (Negative) 0511/12/19 11/12/19 Range/Units 15:45 16:43 21:01 Sodium (137-145) mmol/L Creatinine (0.52-1.04) mg/dL Glucose (74-99) mg/dL POC Glucose (mg/dL) 263 H 188 H (75-99) mg/dL Urine Protein Trace H (Negative) Urine Glucose (UA) 4+ H (Negative) Microbiology - Last 24 Hours (Table) 11/08/19 18:10 Blood Culture - Preliminary Blood No Growth after 96 hours 11/09/19 16:00 Blood Culture - Preliminary Blood No Growth after 72 hours 11/09/19 18:11 Urine Culture - Final Urine,Clean Catch Escherichia coli Enterococcus faecalis Assessment and Plan Assessment: patient with positive urine culture with ESBL E. coli in this patient who present hospital with generalized weakness multiple falls patient did have low- grade fever though initially overnight significantly positive however culture showing more than 100,000 colonies of enterococcus predominantly in addition to the ESBL E. coli and with her significant urinary symptoms likely symptomatic urinary tract infection (1) UTI due to extended-spectrum beta lactamase (ESBL) producing Escherichia coli Current Visit: No Status: Acute Code(s): N39.0 - URINARY TRACT INFECTION, SITE NOT SPECIFIED; B96.29 - OTH ESCHERICHIA COLI THE CAUSE OF DISEASES CLASSD ELSWHR; Z16.12 - EXTENDED SPECTRUM BETA LACTAMASE (ESBL) RESISTANCE SNOMED Code(s): 404150045 Plan: 1-we will repeat her UA and a culture 2-Invanz 1 g IV back daily while waiting for urine culture to finalize We will follow on clinical condition and cultures to further adjust medication if needed Thank you for this consultation we will follow the patient along with you Time with Patient: Greater than 30
[2019-11-13] MEDS: SODIUM CHLORIDE 0.9% 1,000 ML IV SCH ×3 (02:29→21:26)
[2019-11-13] MEDS: HYDROmorphone 0.5 MG/0.5 ML SYRINGE IVP PRN ×4 (04:38→14:34)
[2019-11-13 06:55] LABS: Glucose,Whole Blood 248 mg/dL (75-99)
[2019-11-13] MEDS: PROCHLORPERAZINE 10 MG TAB PO SCH ×3 (07:44→20:38)
[2019-11-13] MEDS: THIAMINE 100 MG TAB PO SCH (07:44)
[2019-11-13] MEDS: ASPIRIN 81 MG PO SCH (07:45)
[2019-11-13] MEDS: GABAPENTIN 100 MG CAP PO SCH ×3 (07:45→20:38)
[2019-11-13] MEDS: PANTOPRAZOLE 40 MG TABLET PO SCH (07:45)
[2019-11-13] MEDS: LISINOPRIL 10 MG TAB PO SCH (07:45)
[2019-11-13] MEDS: MAGNESIUM OXIDE 400 MG TAB PO SCH ×2 (07:45→20:38)
[2019-11-13] MEDS: FERROUS SULFATE 325 MG TAB PO SCH (07:45)
[2019-11-13] MEDS: VENLAFAXINE HCL ER 75 MG CAP PO SCH (07:45)
[2019-11-13] MEDS: MULTIVITAMINS, THERA 1 EACH TAB PO SCH (07:45)
[2019-11-13] MEDS: HYDROCORTISONE SUCCINATE 100 MG/2 ML VIAL IV SCH ×2 (07:46→15:05)
[2019-11-13] MEDS: CHOLECALCIFEROL 1,000 UNIT TAB PO SCH (07:46)
[2019-11-13] MEDS: CLOPIDOGREL 75 MG TAB PO SCH (07:46)
[2019-11-13] MEDS: BRIMONIDINE TARTRATE 0.2% DROPS 5 ML BTL RIGHT EYE SCH ×2 (07:47→20:38)
[2019-11-13] MEDS: INSULIN ASPART (NovoLOG) 100 UNIT/ML VIAL SQ SCH ×7 (07:48→21:23)
[2019-11-13 08:41] LABS: Basophils % (A) 0 %; Eosinophils # (A) 0.2 k/uL (0-0.7); Eosinophils % (A) 2 %; HCT 40.1 % (34.0-46.0); HGB 13.2 gm/dL (11.4-16.0); Lymphocytes # (A) 2.3 k/uL (1.0-4.8); Lymphocytes % (A) 23 %; MCH 30.7 pg (25.0-35.0); MCHC 32.9 g/dL (31.0-37.0); MCV 93.2 fL (80.0-100.0); Mean Platelet Volume 8.1; Monocytes # (A) 0.4 k/uL (0-1.0); Monocytes % (A) 3 %; Neutrophils # (A) 7.2 k/uL (1.3-7.7); Neutrophils % (A) 71 %; Platelet Count 230 k/uL (150-450); RBC 4.31 m/uL (3.80-5.40); RDW 14.8 % (11.5-15.5); WBC 10.1 k/uL (3.8-10.6)
[2019-11-13 09:10] LABS: African American GFR (CKD) >90 (>60 ml/min/1.73 sqM); Anion Gap 8 mmol/L; Blood Urea Nitrogen 20 mg/dL (7-17); Calcium 8.6 mg/dL (8.4-10.2); Carbon Dioxide 26 mmol/L (22-30); Chloride 101 mmol/L (98-107); Glucose 306 mg/dL (74-99); Non-African American GFR(CKD) >90 (>60 ml/min/1.73 sqM); Potassium 3.3 mmol/L (3.5-5.1); Sodium 135 mmol/L (137-145)
[2019-11-13] MEDS: POTASSIUM CHLORIDE ER 20 MEQ TAB.ER PO SCH ×2 (10:09→11:14)
[2019-11-13] MEDS: ERTAPENEM 1 GM in SODIUM CHLORIDE 0.9% 50 ML IVPB SCH (11:14)
[2019-11-13 12:23] LABS: Glucose,Whole Blood 114 mg/dL (75-99)
--- NOTE | 2019-11-13 12:43 | P.GSCN ---
History of Present Illness Consult date: 11/13/19 History of present illness: Patient is a 69-year-old female who initially presented with dizziness and lethargy. She states that this occasionally happens when she has hearing tract infections which was recently treated, but that it was coming back and overall she denies any headaches, changes in vision, weakness or other issues. She does have issues with falling and again this occurs more when she seems lightheaded. 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, R wrist/elbow nerve repair, bone removed R shoulder, 4th toe R foot partial amputation, bilateral feet/bunionectomies, R knee arthroscopies, R orbit decompression with ethmoidectomy and eyelid lift, EGD, colonoscopies, cystocopies, lithotripsy/stents, total hysterectomy, bilateral breast reduction, bilateral cataract removals.Parathyroid surgery - April 2019, pain clinic procedures Past Anesthesia/Blood Transfusion Reactions: No Reported Reaction Additional Past Anesthesia/Blood Transfusion Reaction / Comm: never recieved blood Past Psychological History: No Psychological Hx Reported Additional Psychological History / Comment(s): Pt resides with her spouse. She uses a walker if out shopping. She drives. She has a nebulizer, cpap, bsc, shower chair, bp machine, dexcom monitor system for her bs. Smoking Status: Never smoker Past Alcohol Use History: Occasional Additional Past Alcohol Use History / Comment(s): no alcohol Past Drug Use History: None Reported - Past Family History Father Family Medical History: Coronary Artery Disease (CAD), CVA/TIA, Diabetes Mellitus, Myocardial Infarction ([place]), Pneumonia Additional Family Medical History / Comment(s): Father at the age of 78yrs from [place] and pneumonia. Mother Family Medical History: Cancer Additional Family Medical History / Comment(s): Mother had uterine cancer. She recently at the age of 96yrs old. Medications and Allergies Home Medications Medication Instructions Recorded Confirmed Type Cholecalciferol [Vitamin D3 (25 3,000 unit PO DAILY@0700 12/01/14 11/08/19 History Mcg = 1000 Iu)] Metoprolol Succinate (ER) [Toprol 50 mg PO HS 07/06/17 11/08/19 History XL] Meclizine [Antivert] 25 mg PO TID PRN 11/26/17 11/08/19 History Hydrocortisone [Cortef] 15 mg PO AC-BRKFST 05/18/18 11/08/19 History Hydrocortisone [Cortef] 5 mg PO HS 06/26/18 11/08/19 History Aspirin 81 mg PO DAILY #0 07/02/18 11/08/19 Rx Glucagon Emergency Kit 1 mg IM ONCE PRN 08/12/18 11/08/19 History Cranberry 300mg 300 mg PO BID 10/08/18 11/08/19 History Ferrous Sulfate [Iron (65 MG 325 mg PO DAILY 10/08/18 11/08/19 History Elemental)] Folic Acid 0.4 mg PO DAILY 10/08/18 11/08/19 History L.acidoph,Paracasei, B.lactis 2 cap PO BID 10/08/18 11/08/19 History [Probiotic] Melatonin 5 mg PO HS PRN 10/08/18 11/08/19 History Multivitamins, Thera Liquid 30 ml PO DAILY 10/08/18 11/08/19 History [Theragran Liquid (formulary)] Potassium 99 mg PO DAILY 10/08/18 11/08/19 History Thiamine [Vitamin B-1] 100 mg PO DAILY 10/08/18 11/08/19 History Vitamin B-Complex Drops 1 drop PO BID 10/08/18 11/08/19 History Lisinopril [Zestril] 15 mg PO DAILY 11/08/18 11/08/19 History Atorvastatin [Lipitor] 40 mg PO HS #30 tab 11/16/18 11/08/19 Rx HYDROcodone/APAP 10-325MG [[place] 1 tab PO TID PRN 12/26/18 11/08/19 History 10-325] Pantoprazole [Protonix] 40 mg PO DAILY 01/29/19 11/08/19 History Hydrocortisone [Cortef] 10 mg PO AC-LUNCH 08/30/19 11/08/19 History Brimonidine Tartrate [Alphagan P 1 drop RIGHT EYE BID 08/31/19 11/08/19 History 0.2% Ophth Soln] Acetaminophen [Tylenol Extra 1,000 mg PO DAILY PRN 09/12/19 11/08/19 History Strength] Magnesium Oxide [Mag-Ox] 400 mg PO BID #1 tab 09/16/19 11/08/19 Rx Insulin Aspart [NovoLOG Flexpen] 18 units SQ AC-LUNCH #0 09/24/19 11/08/19 Rx Insulin Aspart [NovoLOG Flexpen] 22 units SQ AC-SUPPER #0 09/24/19 11/08/19 Rx Insulin Aspart [NovoLOG Flexpen] 14 units SQ AC-BRKFST 10/28/19 11/08/19 History Metoclopramide [Reglan] 5 mg PO DAILY PRN 10/28/19 11/08/19 History Butalb/APAP/Caff 50-325-40Mg 1 tab PO Q4H PRN #18 tablet 10/30/19 11/08/19 Rx [Fioricet 50-325-40] Gabapentin [Neurontin] 200 mg PO TID #18 cap 10/30/19 11/08/19 Rx Ondansetron HCl [Zofran] 4 mg PO Q8H PRN #30 tab 10/30/19 11/08/19 Rx Insulin Glargine,Hum.rec.anlog 26 unit SQ HS 11/08/19 11/08/19 History [Lantus Solostar] Prochlorperazine [Compazine] 5 mg PO TID 11/08/19 11/08/19 History Venlafaxine HCl [Effexor XR] 75 mg PO DAILY 11/08/19 11/08/19 History Allergies Allergy/AdvReac Type Severity Reaction Status Date / Time butorphanol tartrate Allergy BLISTERS Verified 11/08/19 20:28 [From Stadol] IN MOUTH ceftriaxone [From Rocephin] Allergy Unknown Verified 11/08/19 20:28 clarithromycin [From Biaxin] Allergy Rash/Hives Verified 11/08/19 20:28 codeine Allergy Rash/Hives Verified 11/08/19 20:28 ergotamine tartrate Allergy Unknown Verified 11/08/19 20:28 [From Cafergot] erythromycin base Allergy RASH, GI Verified 11/08/19 20:28 [From E-Mycin] SYMPTOMS ketorolac tromethamine Allergy Rash/Hives Verified 11/08/19 20:28 [From Toradol] liraglutide [From Victoza] Allergy Rash/Hives Verified 11/08/19 20:28 morphine Allergy Rash/Hives Verified 11/08/19 20:28 Penicillins Allergy Rash/Hives Verified 11/08/19 20:28 pentazocine lactate Allergy SEVERE Verified 11/08/19 20:28 [From Talwin] BLISTERS IN MOUTH pregabalin [From Lyrica] Allergy Rash/Hives Verified 11/08/19 20:28 propoxyphene HCl Allergy Rash/Hives Verified 11/08/19 20:28 [From Darvon] Sulfa (Sulfonamide Allergy Rash/Hives Verified 11/08/19 20:28 Antibiotics) tramadol Allergy Unknown Verified 11/08/19 20:28 monosodium glutamate [MSG] AdvReac Nausea & Verified 11/08/19 20:28 Vomiting nalbuphine HCl [From Nubain] AdvReac Nausea & Verified 11/08/19 20:28 Vomiting Surgical - Exam Vital Signs Temp Pulse Resp BP Pulse Ox 98.5 F 114 H 18 114/85 98 11/08/19 17:22 11/08/19 17:22 11/08/19 17:22 11/08/19 17:22 11/08/19 17:22 Gen. is a pleasant cooperative female in no acute distress. HEENT is normocephalic, atraumatic, etc. he motion intact. Heart regular in rate and rhythm. Lungs clear bilaterally. Abdomen is soft, nontender nondistended. Cranial nerves II through XII grossly intact. Extremity show no clubbing, cyanosis or edema. Normal mood and affect Results - Labs 11/13/19 08:21 11/13/19 08:21 Abnormal Lab Results - Last 24 Hours (Table) 11/12/19 11/12/19 11/12/19 Range/Units 15:45 16:43 21:01 Sodium (137-145) mmol/L Potassium (3.5-5.1) mmol/L BUN (7-17) mg/dL Glucose (74-99) mg/dL POC Glucose (mg/dL) 263 H 188 H (75-99) mg/dL Urine Protein Trace H (Negative) Urine Glucose (UA) 4+ H (Negative) 11/13/19 11/13/19 11/13/19 Range/Units 06:54 08:21 12:20 Sodium 135 L (137-145) mmol/L Potassium 3.3 L (3.5-5.1) mmol/L BUN 20 H (7-17) mg/dL Glucose 306 H (74-99) mg/dL POC Glucose (mg/dL) 248 H 114 H (75-99) mg/dL Urine Protein (Negative) Urine Glucose (UA) (Negative) Microbiology - Last 24 Hours (Table) 11/08/19 18:10 Blood Culture - Preliminary Blood No Growth after 96 hours 11/09/19 16:00 Blood Culture - Preliminary Blood No Growth after 72 hours 11/09/19 18:11 Urine Culture - Final Urine,Clean Catch Escherichia coli Enterococcus faecalis Diabetes panel 11/13/19 Range/Units 08:21 Sodium 135 L (137-145) mmol/L Potassium 3.3 L (3.5-5.1) mmol/L Chloride 101 (98-107) mmol/L Carbon Dioxide 26 (22-30) mmol/L BUN 20 H (7-17) mg/dL Creatinine 0.53 (0.52-1.04) mg/dL Glucose 306 H (74-99) mg/dL Calcium 8.6 (8.4-10.2) mg/dL Calcium panel 11/13/19 Range/Units 08:21 Calcium 8.6 (8.4-10.2) mg/dL Pituitary panel 11/13/19 Range/Units 08:21 Sodium 135 L (137-145) mmol/L Potassium 3.3 L (3.5-5.1) mmol/L Chloride 101 (98-107) mmol/L Carbon Dioxide 26 (22-30) mmol/L BUN 20 H (7-17) mg/dL Creatinine 0.53 (0.52-1.04) mg/dL Glucose 306 H (74-99) mg/dL Calcium 8.6 (8.4-10.2) mg/dL Adrenal panel 11/13/19 Range/Units 08:21 Sodium 135 L (137-145) mmol/L Potassium 3.3 L (3.5-5.1) mmol/L Chloride 101 (98-107) mmol/L Carbon Dioxide 26 (22-30) mmol/L BUN 20 H (7-17) mg/dL Creatinine 0.53 (0.52-1.04) mg/dL Glucose 306 H (74-99) mg/dL Calcium 8.6 (8.4-10.2) mg/dL - Imaging Additional studies: Computed tomography scan of the [place] is reviewed. 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 At this time evaluating the vertebral arteries the areas of stenosis are high at the C1 portion. There is no intervention recommended for this this time. We will trial aspirin and Plavix with dual antibiotic therapy. Physical therapy. We will follow-up with her in time to make sure she is starting her antibiotics therapies, but again otherwise no surgical intervention planned. She seemingly understands and is willing to proceed as such.
[2019-11-13] MEDS ORDERED: ACETAMINOPHEN IV (For NPO) 1,000 MG in EMPTY BAG 1 BAG IVPB ONE (15:41)
[2019-11-13] MEDS ORDERED: Potassium Replacement Protocol 1 EACH MISC MISCELLANE PRN (15:50)
--- NOTE | 2019-11-13 15:58 | P.PN ---
Subjective Progress Note Date: 11/13/19 This is a pleasant 69-year-old female admitted with generalized weakness, status post fall 2, migraine headache, neck pain, fever, leukocytosis and multiple other medical issues. Initially had planned for discharge but urine cultures now returning back with ESBL. Antibiotics adjusted, changed over to ertapenem. Neurology also requesting vascular surgery consult regarding bilateral vertebral artery stenosis as suggested on CTA. Complains of right hip pain, spasms in the right hamstring area, secondary to fall at home. Reports she has been walking around in room with walker with no lightheadedness, dizziness or focal deficits. Denies chest pain, palpitations or shortness of breath. Complains of headache/neck ache. 11/13/2019 maintained on ertapenem for ESBL UTI, final cultures pending. Repeat urine culture in progress. Afebrile, normal WBC. Potassium 3.3. Evaluated by vascular surgery with recommendations noted and appreciated, no surgical intervention at this time, maintain on dual anticoagulation with Plavix and aspirin. Currently denies headache, lightheadedness, dizziness or focal deficits. Denies chest pain, palpitations or shortness of breath. Objective - Vital Signs Vital signs: Vital Signs Temp 98.5 F 11/13/19 15:00 Pulse 60 11/13/19 15:00 Resp 17 11/13/19 15:00 BP 160/89 11/13/19 15:00 Pulse Ox 96 11/13/19 15:00 Intake & Output 11/12/19 11/13/19 11/13/19 18:59 06:59 18:59 Intake Total 540 450 Balance 540 450 Intake: IV 450 Ertapenem 1 gm In Sodium 50 Chloride 0.9% 50 ml @ 100 mls/hr IVPB DAILY@1200 [facility] Rx#:[id number] Sodium Chloride 0.9% 1, 400 000 ml @ 100 mls/hr IV . Q10H [facility] Rx#:[id number] Oral 540 Other: Voiding Method Toilet # Voids 6 1 - Exam - Exam General: Lying in bed, no acute distress Eyes: PERRL, EOMI, conjunctiva normal HENT: normocephalic, oral mucosa moist Neck: supple, no JVD Lungs: normal respiratory effort, no rhonchi, wheezes, or rales CV: Regular rate and rhythm, no murmur. Peripheral pulses 2+ Abdomen: soft, nondistended, no organomegaly Lymph: no cervical or axillary LAD Skin: warm and dry. Neuro: A&Ox3, normal mood and affect - Labs CBC & Chem 7: 11/13/19 08:21 11/13/19 08:21 Labs: Abnormal Lab Results - Last 24 Hours (Table) 11/12/19 11/12/19 11/12/19 Range/Units 15:45 16:43 21:01 Sodium (137-145) mmol/L Potassium (3.5-5.1) mmol/L BUN (7-17) mg/dL Glucose (74-99) mg/dL POC Glucose (mg/dL) 263 H 188 H (75-99) mg/dL Urine Protein Trace H (Negative) Urine Glucose (UA) 4+ H (Negative) 11/13/19 11/13/19 11/13/19 Range/Units 06:54 08:21 12:20 Sodium 135 L (137-145) mmol/L Potassium 3.3 L (3.5-5.1) mmol/L BUN 20 H (7-17) mg/dL Glucose 306 H (74-99) mg/dL POC Glucose (mg/dL) 248 H 114 H (75-99) mg/dL Urine Protein (Negative) Urine Glucose (UA) (Negative) Microbiology - Last 24 Hours (Table) 11/08/19 18:10 Blood Culture - Preliminary Blood No Growth after 96 hours 11/09/19 16:00 Blood Culture - Preliminary Blood No Growth after 72 hours 11/09/19 18:11 Urine Culture - Final Urine,Clean Catch Escherichia coli Enterococcus faecalis Assessment and Plan Assessment: Acute UTI with ESBL Generalized weakness with ataxia, secondary to the above, improving CTA reveals bilateral vertebral artery stenosis at C1, followed by both neurology and vascular surgery Status post falls secondary to the above Intractable migraine with aura, with status migrainosus Reported concussion in fall of 2018 Adrenal insufficiency Diabetes mellitus type 2, hyperglycemia, steroid-induced Plan: Continue on current medication regime ,monitoring and symptomatic treatment. Dual anticoagulation of Plavix, aspirin. Continue on statin. Discharge planning in progress pending final culture results, final DC recommendations and clearance from infectious disease. The impression and plan of care has been dictated as directed. : I performed a history and examination of this patient, discussed the same with the dictator. I agree with the dictator's note ,documented as a scribe. Any additional findings or plans will be noted.
[2019-11-13] MEDS ORDERED: MAGNESIUM SULFATE-D5W PMX 1 GM in DEXTROSE/WATER 1 100ML.BAG IVPB ONE (16:00)
[2019-11-13 16:56] LABS: Glucose,Whole Blood 252 mg/dL (75-99)
--- NOTE | 2019-11-13 20:29 | PN ---
PROGRESS NOTE DATE OF SERVICE: 11/13/2019 REASON FOR FOLLOWUP: ESBL E coli urinary tract infection. INTERVAL HISTORY: The patient is currently afebrile. The patient is breathing comfortably. The patient is mentioning overall improvement in her symptoms of burning and frequency. Denies having any chest pain or shortness of breath or cough. No abdominal pain or diarrhea. PHYSICAL EXAMINATION: Blood pressure 160/89 with a pulse of 60, temperature 98.5. She is 96% on room air. General description is an elderly female lying in bed in no distress. RESPIRATORY SYSTEM: Unlabored breathing. Clear to auscultation anteriorly. HEART: S1, S2. Regular rate and rhythm. ABDOMEN: Soft. No tenderness. LABS: Repeat urine is currently negative. DIAGNOSTIC IMPRESSION AND PLAN: Patient with a positive culture, extended-spectrum beta-lactamase and enterococcus faecalis with possible mild cystitis. Would recommend only a 3-day course of IV Invanz, as the repeat urine has been negative. No need for any IV antibiotic on discharge. Continue with supportive care. MMODL / IJN: [id number] /
[2019-11-13] MEDS: MELATONIN 5 MG TABLET PO PRN (20:37)
[2019-11-13] MEDS: METOPROLOL SUCCINATE (ER) 50 MG TAB.ER.24H PO SCH (20:38)
[2019-11-13] MEDS: ATORVASTATIN 40 MG TAB PO SCH (20:38)
[2019-11-13 20:43] LABS: Glucose,Whole Blood 354 mg/dL (75-99)
[2019-11-13] MEDS: INSULIN DETEMIR (LEVEMIR) 100 UNIT/ML SYR SQ SCH (21:24)
[2019-11-14] MEDS: HYDROCORTISONE SUCCINATE 100 MG/2 ML VIAL IV SCH ×4 (01:19→23:21)
[2019-11-14] MEDS: HYDROmorphone 0.5 MG/0.5 ML SYRINGE IVP PRN ×3 (01:19→08:57)
[2019-11-14 06:50] LABS: Glucose,Whole Blood 250 mg/dL (75-99)
[2019-11-14] MEDS: MAGNESIUM OXIDE 400 MG TAB PO SCH ×2 (07:21→20:31)
[2019-11-14] MEDS: THIAMINE 100 MG TAB PO SCH (07:21)
[2019-11-14] MEDS: VENLAFAXINE HCL ER 75 MG CAP PO SCH (07:21)
[2019-11-14] MEDS: LISINOPRIL 10 MG TAB PO SCH (07:22)
[2019-11-14] MEDS: PANTOPRAZOLE 40 MG TABLET PO SCH (07:22)
[2019-11-14] MEDS: MULTIVITAMINS, THERA 1 EACH TAB PO SCH (07:22)
[2019-11-14] MEDS: FERROUS SULFATE 325 MG TAB PO SCH (07:22)
[2019-11-14] MEDS: ASPIRIN 81 MG PO SCH (07:22)
[2019-11-14] MEDS: CLOPIDOGREL 75 MG TAB PO SCH (07:22)
[2019-11-14] MEDS: PROCHLORPERAZINE 10 MG TAB PO SCH ×3 (07:23→20:41)
[2019-11-14] MEDS: CHOLECALCIFEROL 1,000 UNIT TAB PO SCH (07:23)
[2019-11-14] MEDS: INSULIN ASPART (NovoLOG) 100 UNIT/ML VIAL SQ SCH ×8 (07:24→20:38)
[2019-11-14] MEDS: GABAPENTIN 100 MG CAP PO SCH ×3 (07:30→21:54)
[2019-11-14 08:50] LABS: Basophils % (A) 0 %; Eosinophils # (A) 0.1 k/uL (0-0.7); Eosinophils % (A) 1 %; HCT 39.2 % (34.0-46.0); HGB 12.8 gm/dL (11.4-16.0); Lymphocytes # (A) 1.3 k/uL (1.0-4.8); Lymphocytes % (A) 15 %; MCH 29.6 pg (25.0-35.0); MCHC 32.7 g/dL (31.0-37.0); MCV 90.4 fL (80.0-100.0); Mean Platelet Volume 9.1; Monocytes # (A) 0.3 k/uL (0-1.0); Monocytes % (A) 3 %; Neutrophils # (A) 7.2 k/uL (1.3-7.7); Neutrophils % (A) 80 %; Platelet Count 155 k/uL (150-450); RBC 4.34 m/uL (3.80-5.40); RDW 14.9 % (11.5-15.5)
[2019-11-14 09:13] LABS: African American GFR (CKD) >90 (>60 ml/min/1.73 sqM); Anion Gap 7 mmol/L; Blood Urea Nitrogen 20 mg/dL (7-17); Calcium 6.5 mg/dL (8.4-10.2); Carbon Dioxide 25 mmol/L (22-30); Chloride 103 mmol/L (98-107); Glucose 253 mg/dL (74-99); Non-African American GFR(CKD) >90 (>60 ml/min/1.73 sqM); Sodium 135 mmol/L (137-145)
[2019-11-14 09:21] LABS: Potassium 4.7 mmol/L (3.5-5.1)
[2019-11-14 11:57] LABS: Glucose,Whole Blood 222 mg/dL (75-99)
[2019-11-14] MEDS ORDERED: ACETAMINOPHEN IV (For NPO) 1,000 MG in EMPTY BAG 1 BAG IVPB ONE (12:00)
[2019-11-14] MEDS ORDERED: MAGNESIUM SULFATE-D5W PMX 1 GM in DEXTROSE/WATER 1 100ML.BAG IVPB ONE (12:00)
[2019-11-14] MEDS: ERTAPENEM 1 GM in SODIUM CHLORIDE 0.9% 50 ML IVPB SCH (12:05)
[2019-11-14] MEDS: HYDROcodone/APAP 10-325MG 1 EACH TAB PO PRN ×3 (12:06→23:21)
[2019-11-14] MEDS: BRIMONIDINE TARTRATE 0.2% DROPS 5 ML BTL RIGHT EYE SCH ×2 (12:06→21:53)
--- NOTE | 2019-11-14 12:57 | P.PN ---
Subjective Progress Note Date: 11/14/19 This is a pleasant 69-year-old female admitted with generalized weakness, status post fall 2, migraine headache, neck pain, fever, leukocytosis and multiple other medical issues. Initially had planned for discharge but urine cultures now returning back with ESBL. Antibiotics adjusted, changed over to ertapenem. Neurology also requesting vascular surgery consult regarding bilateral vertebral artery stenosis as suggested on CTA. Complains of right hip pain, spasms in the right hamstring area, secondary to fall at home. Reports she has been walking around in room with walker with no lightheadedness, dizziness or focal deficits. Denies chest pain, palpitations or shortness of breath. Complains of headache/neck ache. 11/13/2019 maintained on ertapenem for ESBL UTI, final cultures pending. Repeat urine culture in progress. Afebrile, normal WBC. Potassium 3.3. Evaluated by vascular surgery with recommendations noted and appreciated, no surgical intervention at this time, maintain on dual anticoagulation with Plavix and aspirin. Currently denies headache, lightheadedness, dizziness or focal deficits. Denies chest pain, palpitations or shortness of breath. 11/14/2019 repeat urine culture pending. Maintained on IV ertapenem. Hypertensive this morning, repeat SBP less than 160. Complaining of posterior headache. Denies lightheadedness, dizziness or focal deficits. Reports ambulation/balance improved. Evaluated by PT reporting patient has challenges with endurance, recommending home with home care. Denies chest pain, palpitations or shortness of breath. Objective - Vital Signs Vital signs: Vital Signs Temp 98.7 F 11/14/19 07:00 Pulse 88 11/14/19 09:45 Resp 17 11/14/19 08:00 BP 154/84 11/14/19 09:45 Pulse Ox 100 11/14/19 07:00 Intake & Output 11/13/19 11/14/19 11/14/19 18:59 06:59 18:59 Intake Total 450 Output Total 1 Balance 450 -1 Intake: IV 450 Ertapenem 1 gm In Sodium 50 Chloride 0.9% 50 ml @ 100 mls/hr IVPB DAILY@1200 [facility] Rx#:[id number] Sodium Chloride 0.9% 1, 400 000 ml @ 100 mls/hr IV . Q10H [facility] Rx#:[id number] Output: Stool 1 Other: Voiding Method Toilet # Voids 1 # Bowel Movements 2 - Exam - Exam General: Lying in bed, no acute distress Eyes: PERRL, EOMI, conjunctiva normal HENT: normocephalic, oral mucosa moist Neck: supple, no JVD Lungs: normal respiratory effort, lungs clear, no rhonchi, wheezes, or rales CV: Regular rate and rhythm, no murmur. Peripheral pulses 2+ Abdomen: soft, nondistended, no organomegaly. Positive bowel sounds Skin: warm and dry. Neuro: A&Ox3, normal mood and affect - Labs CBC & Chem 7: 11/14/19 08:16 11/14/19 08:16 Labs: Abnormal Lab Results - Last 24 Hours (Table) 11/13/19 11/13/19 11/14/19 Range/Units 16:54 20:42 06:48 Sodium (137-145) mmol/L BUN (7-17) mg/dL Creatinine (0.52-1.04) mg/dL Glucose (74-99) mg/dL POC Glucose (mg/dL) 252 H 354 H 250 H (75-99) mg/dL Calcium (8.4-10.2) mg/dL 11/14/19 11/14/19 Range/Units 08:16 11:56 Sodium 135 L (137-145) mmol/L BUN 20 H (7-17) mg/dL Creatinine 0.43 L (0.52-1.04) mg/dL Glucose 253 H (74-99) mg/dL POC Glucose (mg/dL) 222 H (75-99) mg/dL Calcium 6.5 L (8.4-10.2) mg/dL Microbiology - Last 24 Hours (Table) 11/08/19 18:10 Blood Culture - Preliminary Blood No Growth after 120 hours 11/09/19 16:00 Blood Culture - Preliminary Blood No Growth after 96 hours Assessment and Plan Assessment: Acute UTI with ESBL, possible mild cystitis Generalized weakness with ataxia, secondary to the above, improving CTA reveals bilateral vertebral artery stenosis at C1, followed by both neurology and vascular surgery Status post falls secondary to the above Intractable migraine with aura, with status migrainosus Reported concussion in fall of 2018 Adrenal insufficiency Diabetes mellitus type 2, hyperglycemia, steroid-induced Hypertension Plan: Continue on current medication regime ,monitoring and symptomatic treatment. Dilaudid has been discontinued. Pain management with prn [place], fiorcet,tylenol. IV antibiotics as per infectious disease. Maintained dual anticoagulation of Plavix, aspirin. Continue on statin. Discharge planning in progress either later today, or tomorrow pending final culture results, final DC recommendations and clearance from infectious disease. The impression and plan of care has been dictated as directed. : I performed a history and examination of this patient, discussed the same with the dictator. I agree with the dictator's note ,documented as a scribe. Any additional findings or plans will be noted.
--- NOTE | 2019-11-14 14:28 | CDI ---
Documentation Clarification Form Date: 11/14/2019 CDS: Omaira Coy, CCS, CCDS Admit Date: 11/10/2019 Patient Name: Melissa Pena ATTENTION: The Clinical Documentation Specialists (CDI) and [facility] Coding Staff appreciate your assistance in clarifying documentation. Please respond to the clarification below the line at the bottom and electronically sign. The CDI & [facility] Coding staff will review the response and follow-up if needed. Please note: Queries are made part of the Legal Health Record. If you have any questions, please contact the author of this message via ITS. Dear Dr. Andrew Gonsales: Per the 11/09 & 11/10 Attending Progress Note: "Fever, increased WBC. 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 Clinical Indicators: Presented to the ED on 11/07 with weakness, difficulty ambulating at home, fall at home. Admitted to Observation with Hyponatremia, Adrenal Insufficiency, Lactic Acidosis, Leukocytosis & Weakness. Admit to Inpatient on 11/09, diagnosed with Vertebrobasilar insufficiency, Possible sepsis, Severe atherosclerotic narrowing of bilateral vertebral arteries C1, Hyponatremia, History of recurrent UTIs. 11/11 Diagnosis: Acute UTI w/ESBL & Intractable migraine w/aura w/status migrainosus. VS 11/07: T 98.5, P 114^, R 18, BP 114/85, O 98 RA - 92 RA. Temp on 11/08 100.2^. Temp on 11/09: 98.5. LAB 11/07: WBC 15.9^, Neut 11.4^, Lactic Acid 3.2^^. LAB 11/09: CBC not done LAB 11/10: WBC 7.8, Neut 5.3. UA 11/07: Negative nitrite & esterase, WBC 2. UA 11/11: clear, negative nitirite & esterase. Blood cultures 11/07 & 11/08: negative pending final. Urine culture 11/08: Final: E coli, enterococcus faecalis. Treatment 11/07 (OBS): IV fluid bolus, IV SoluCortef, IV Zofran, IV Dilaudid Treatment 11/08: IV SoluCortef Treatment 11/10: IV Tylenol, IV Mag Sulfate, IV Ertapenem ID Consult 11/11: UTI due to ESBL producing E Coli. In your professional opinion, please clarify if these findings signify one of the following conditions, whether the condition is POA, and cause, if known: Sepsis ruled out Sepsis Other, please specify: Unable to determine Present on Admission: Yes or No Identify the (suspected) organism Link or clarify if there is associated (due to/with): (Last Revision: September 2017) Sepsis due to UTI due to ESBL e coli MTDD
[2019-11-14] MEDS: BUTALB/APAP/CAFF 50-325-40MG TAB PO PRN ×2 (15:15→20:31)
[2019-11-14 16:55] LABS: Glucose,Whole Blood 167 mg/dL (75-99)
[2019-11-14 20:30] LABS: Glucose,Whole Blood 390 mg/dL (75-99)
[2019-11-14] MEDS: ATORVASTATIN 40 MG TAB PO SCH (20:31)
[2019-11-14] MEDS: METOPROLOL SUCCINATE (ER) 50 MG TAB.ER.24H PO SCH (20:31)
[2019-11-14] MEDS: MELATONIN 5 MG TABLET PO PRN (20:32)
[2019-11-14] MEDS: INSULIN DETEMIR (LEVEMIR) 100 UNIT/ML SYR SQ SCH (20:38)
[2019-11-14] MEDS: SODIUM CHLORIDE 0.9% 1,000 ML IV SCH (23:24)
--- NOTE | 2019-11-14 23:55 | PN ---
PROGRESS NOTE DATE OF SERVICE: 11/14/2019 REASON FOR FOLLOWUP: ESBL E coli urinary tract infection. INTERVAL HISTORY: The patient is currently afebrile. The patient is breathing comfortably. Denies having any chest pain. No shortness of breath or cough. No nausea, no vomiting. No abdominal pain, no diarrhea. PHYSICAL EXAMINATION: Blood pressure 176/78 with a pulse of 90, temperature 99. She is 98% on room air. General description is an elderly female lying in bed in no distress. RESPIRATORY SYSTEM: Unlabored breathing, clear to auscultation anteriorly. HEART: S1, S2. Regular rate and rhythm. ABDOMEN: Soft, no tenderness. LABS: Hemoglobin is 12.8, white count 9.0, BUN of 20, creatinine 0.43. DIAGNOSTIC IMPRESSION AND PLAN: Patient with ESBL Escherichia coli urinary tract infection in this patient currently responding to Invanz to continue. No need for antibiotic on discharge. Will monitor clinical course closely. Continue with supportive care. MMODL / IJN: [id number] /
[2019-11-15] MEDS: BUTALB/APAP/CAFF 50-325-40MG TAB PO PRN ×4 (01:30→19:49)
[2019-11-15] MEDS: HYDROcodone/APAP 10-325MG 1 EACH TAB PO PRN ×3 (05:47→17:37)
[2019-11-15] MEDS: SODIUM CHLORIDE 0.9% 1,000 ML IV SCH ×2 (05:48→09:21)
[2019-11-15 07:24] LABS: Glucose,Whole Blood 118 mg/dL (75-99)
[2019-11-15] MEDS: INSULIN ASPART (NovoLOG) 100 UNIT/ML VIAL SQ SCH ×7 (07:33→20:50)
[2019-11-15] MEDS: VENLAFAXINE HCL ER 75 MG CAP PO SCH (07:54)
[2019-11-15] MEDS: GABAPENTIN 100 MG CAP PO SCH ×3 (07:55→20:50)
[2019-11-15] MEDS: BRIMONIDINE TARTRATE 0.2% DROPS 5 ML BTL RIGHT EYE SCH ×2 (07:55→20:52)
[2019-11-15] MEDS: THIAMINE 100 MG TAB PO SCH (07:55)
[2019-11-15] MEDS: FERROUS SULFATE 325 MG TAB PO SCH (07:57)
[2019-11-15] MEDS: PROCHLORPERAZINE 10 MG TAB PO SCH ×3 (07:57→17:38)
[2019-11-15] MEDS: CHOLECALCIFEROL 1,000 UNIT TAB PO SCH (07:57)
[2019-11-15] MEDS: CLOPIDOGREL 75 MG TAB PO SCH (07:57)
[2019-11-15] MEDS: MULTIVITAMINS, THERA 1 EACH TAB PO SCH (07:57)
[2019-11-15] MEDS: PANTOPRAZOLE 40 MG TABLET PO SCH (07:57)
[2019-11-15] MEDS: MAGNESIUM OXIDE 400 MG TAB PO SCH ×2 (07:57→20:50)
[2019-11-15] MEDS: ASPIRIN 81 MG PO SCH (07:58)
[2019-11-15] MEDS: HYDROCORTISONE SUCCINATE 100 MG/2 ML VIAL IV SCH ×3 (07:58→23:58)
[2019-11-15] MEDS: LISINOPRIL 10 MG TAB PO SCH (07:58)
[2019-11-15] MEDS ORDERED: LISINOPRIL 5 MG TAB PO ONE (09:00)
[2019-11-15] MEDS ORDERED: LISINOPRIL 20 MG TAB PO SCH (09:00)
[2019-11-15] MEDS: SPIRONOLACTONE 25 MG TAB PO SCH (10:04)
[2019-11-15 11:36] LABS: Glucose,Whole Blood 233 mg/dL (75-99)
[2019-11-15] MEDS ORDERED: ACETAMINOPHEN IV (For NPO) 1,000 MG in EMPTY BAG 1 BAG IVPB ONE (12:00)
[2019-11-15] MEDS ORDERED: MAGNESIUM SULFATE-D5W PMX 1 GM in DEXTROSE/WATER 1 100ML.BAG IVPB ONE (12:00)
[2019-11-15] MEDS: ERTAPENEM 1 GM in SODIUM CHLORIDE 0.9% 50 ML IVPB SCH (12:03)
--- NOTE | 2019-11-15 12:09 | P.PN ---
Subjective Progress Note Date: 11/15/19 This is a pleasant 69-year-old female admitted with generalized weakness, status post fall 2, migraine headache, neck pain, fever, leukocytosis and multiple other medical issues. Initially had planned for discharge but urine cultures now returning back with ESBL. Antibiotics adjusted, changed over to ertapenem. Neurology also requesting vascular surgery consult regarding bilateral vertebral artery stenosis as suggested on CTA. Complains of right hip pain, spasms in the right hamstring area, secondary to fall at home. Reports she has been walking around in room with walker with no lightheadedness, dizziness or focal deficits. Denies chest pain, palpitations or shortness of breath. Complains of headache/neck ache. 11/13/2019 maintained on ertapenem for ESBL UTI, final cultures pending. Repeat urine culture in progress. Afebrile, normal WBC. Potassium 3.3. Evaluated by vascular surgery with recommendations noted and appreciated, no surgical intervention at this time, maintain on dual anticoagulation with Plavix and aspirin. Currently denies headache, lightheadedness, dizziness or focal deficits. Denies chest pain, palpitations or shortness of breath. 11/14/2019 repeat urine culture pending. Maintained on IV ertapenem. Hypertensive this morning, repeat SBP less than 160. Complaining of posterior headache. Denies lightheadedness, dizziness or focal deficits. Reports ambulation/balance improved. Evaluated by PT reporting patient has challenges with endurance, recommending home with home care. Denies chest pain, palpitations or shortness of breath. 11/15/2019 complaining of right frontal headache. Continue on ertapenem .Repeat urine culture ordered. T-max 99.1. Hypertensive. Denies chest pain, palpitations or increased shortness of breath. Objective - Vital Signs Vital signs: Vital Signs Temp 99.1 F 11/15/19 07:00 Pulse 53 L 11/15/19 07:57 Resp 18 11/15/19 07:57 BP 196/103 11/15/19 07:00 Pulse Ox 100 11/15/19 07:00 Intake & Output 11/14/19 11/15/19 11/15/19 18:59 06:59 18:59 Intake Total 550 Output Total 1 1 Balance 549 -1 Intake: Intake, IV Titration 550 Amount ACETAMINOPHEN IV (For NPO 400 ) 1,000 mg In Empty Bag 1 bag @ 400 mls/hr IVPB ONCE ONE Rx#:[id number] Ertapenem 1 gm In Sodium 50 Chloride 0.9% 50 ml @ 100 mls/hr IVPB DAILY@1200 [facility] Rx#:[id number] Magnesium Sulfate-D5w Pmx 100 1 gm In Dextrose/Water 1 100ml.bag @ 100 mls/hr IVPB ONCE ONE Rx#: [id number] Output: Stool 1 1 Other: Voiding Method Toilet Toilet # Voids 1 - Exam - Exam General: Lying in bed, no acute distress Eyes: PERRL, EOMI, conjunctiva normal HENT: normocephalic, oral mucosa moist Neck: supple, no JVD Lungs: normal respiratory effort, lungs clear, no rhonchi, wheezes, or rales CV: Regular rate and rhythm, no murmur. Peripheral pulses 2+, mild edema Abdomen: soft, nondistended, no organomegaly. Positive bowel sounds Skin: warm and dry. Neuro: A&Ox3, normal mood and affect - Labs CBC & Chem 7: 11/14/19 08:16 11/14/19 08:16 Labs: Abnormal Lab Results - Last 24 Hours (Table) 11/14/19 11/14/19 11/15/19 Range/Units 16:53 20:29 07:22 POC Glucose (mg/dL) 167 H 390 H 118 H (75-99) mg/dL 11/15/19 Range/Units 11:35 POC Glucose (mg/dL) 233 H (75-99) mg/dL Microbiology - Last 24 Hours (Table) 11/08/19 18:10 Blood Culture - Final Blood No Growth after 144 hours 11/09/19 16:00 Blood Culture - Preliminary Blood No Growth after 120 hours Assessment and Plan Assessment: Acute UTI with ESBL, possible mild cystitis Generalized weakness with ataxia, secondary to the above, improving CTA reveals bilateral vertebral artery stenosis at C1, followed by both neur ology and vascular surgery Status post falls secondary to the above Intractable migraine with aura, with status migrainosus Reported concussion in fall of 2018 Adrenal insufficiency Diabetes mellitus type 2, hyperglycemia, steroid-induced Hypertension Plan: Continue on current medication regime ,monitoring and symptomatic treatment. Follow-up urine culture ordered. Antibiotics as per ID. Hypertensive, IV fluids discontinued, Aldactone added, cortisone level ordered. Pain management with prn [place], fiorcet,tylenol. Maintain on dual anticoagulation of Plavix, aspirin. Continue on statin. Discharge planning in progress pending ID [facility] recommendations and clearance. The impression and plan of care has been dictated as directed. : I performed a history and examination of this patient, discussed the same with the dictator. I agree with the dictator's note ,documented as a scribe. Any additional findings or plans will be noted.
--- NOTE | 2019-11-15 15:05 | PN ---
PROGRESS NOTE DATE OF SERVICE: 11/15/2019 REASON FOR FOLLOWUP: ESBL E coli urinary tract infection. INTERVAL HISTORY: The patient is currently afebrile, patient is breathing comfortably. Denies having any chest pain or shortness of breath. No cough, no nausea, no abdominal pain, no diarrhea. PHYSICAL EXAM: Blood pressure 186/100 with a pulse of 63, temp 98.1, she is 100% on room air. General description is an elderly female, up in the bed in no distress. RESPIRATORY SYSTEM: Unlabored breathing, clear to auscultation anteriorly. HEART: S1, S2. Regular rate and rhythm. ABDOMEN: Soft, no tenderness. LABS: No new labs have been obtained today. IMPRESSION: Patient with ESBL E. coli urinary tract infection. Patient has responded symptomatically and repeat culture has been negative so far. Recommend discontinue Invanz on discharge. Continue supportive care. MMODL / IJN: [id number] /
[2019-11-15 16:37] LABS: Glucose,Whole Blood 113 mg/dL (75-99)
[2019-11-15 16:39] LABS: Hemoglobin A1C 9.2 % (4.0-6.0)
[2019-11-15 20:43] LABS: Glucose,Whole Blood 363 mg/dL (75-99)
[2019-11-15] MEDS: METOPROLOL SUCCINATE (ER) 50 MG TAB.ER.24H PO SCH (20:50)
[2019-11-15] MEDS: ATORVASTATIN 40 MG TAB PO SCH (20:50)
[2019-11-15] MEDS: INSULIN DETEMIR (LEVEMIR) 100 UNIT/ML SYR SQ SCH (20:51)
[2019-11-16] MEDS: HYDROcodone/APAP 10-325MG 1 EACH TAB PO PRN ×3 (03:05→15:16)
[2019-11-16] MEDS: CHOLECALCIFEROL 1,000 UNIT TAB PO SCH (05:53)
[2019-11-16] MEDS: BUTALB/APAP/CAFF 50-325-40MG TAB PO PRN ×3 (05:53→11:18)
[2019-11-16 06:46] LABS: Glucose,Whole Blood 180 mg/dL (75-99)
[2019-11-16] MEDS: INSULIN ASPART (NovoLOG) 100 UNIT/ML VIAL SQ SCH ×4 (07:18→11:52)
[2019-11-16] MEDS: HYDROCORTISONE SUCCINATE 100 MG/2 ML VIAL IV SCH (07:19)
[2019-11-16] MEDS: FERROUS SULFATE 325 MG TAB PO SCH (07:20)
[2019-11-16] MEDS: PANTOPRAZOLE 40 MG TABLET PO SCH (07:20)
[2019-11-16] MEDS: CLOPIDOGREL 75 MG TAB PO SCH (07:20)
[2019-11-16] MEDS: PROCHLORPERAZINE 10 MG TAB PO SCH (07:20)
[2019-11-16] MEDS: MAGNESIUM OXIDE 400 MG TAB PO SCH (07:20)
[2019-11-16] MEDS: SPIRONOLACTONE 25 MG TAB PO SCH (07:21)
[2019-11-16] MEDS: MULTIVITAMINS, THERA 1 EACH TAB PO SCH (07:21)
[2019-11-16] MEDS: ASPIRIN 81 MG PO SCH (07:21)
[2019-11-16] MEDS: GABAPENTIN 100 MG CAP PO SCH (07:21)
[2019-11-16] MEDS: BRIMONIDINE TARTRATE 0.2% DROPS 5 ML BTL RIGHT EYE SCH (07:22)
[2019-11-16] MEDS: THIAMINE 100 MG TAB PO SCH (07:25)
[2019-11-16] MEDS: VENLAFAXINE HCL ER 75 MG CAP PO SCH (07:25)
[2019-11-16 07:59] LABS: Basophils % (A) 0 %; Eosinophils # (A) 0.1 k/uL (0-0.7); Eosinophils % (A) 1 %; HCT 38.5 % (34.0-46.0); HGB 12.7 gm/dL (11.4-16.0); Lymphocytes # (A) 1.9 k/uL (1.0-4.8); Lymphocytes % (A) 21 %; MCH 30.5 pg (25.0-35.0); MCHC 32.9 g/dL (31.0-37.0); MCV 92.5 fL (80.0-100.0); Mean Platelet Volume 7.8; Monocytes # (A) 0.5 k/uL (0-1.0); Monocytes % (A) 5 %; Neutrophils # (A) 6.4 k/uL (1.3-7.7); Neutrophils % (A) 72 %; Platelet Count 249 k/uL (150-450); RBC 4.16 m/uL (3.80-5.40); RDW 14.9 % (11.5-15.5)
[2019-11-16 08:19] LABS: African American GFR (CKD) >90 (>60 ml/min/1.73 sqM); Anion Gap 6 mmol/L; Blood Urea Nitrogen 21 mg/dL (7-17); Calcium 8.6 mg/dL (8.4-10.2); Carbon Dioxide 30 mmol/L (22-30); Chloride 102 mmol/L (98-107); Glucose 147 mg/dL (74-99); Non-African American GFR(CKD) >90 (>60 ml/min/1.73 sqM); Potassium 3.5 mmol/L (3.5-5.1); Sodium 138 mmol/L (137-145)
[2019-11-16] MEDS ORDERED: LISINOPRIL 20 MG TAB PO SCH (09:00)
[2019-11-16 09:49] VITALS: BMI 25.4
[2019-11-16 11:07] LABS: Glucose,Whole Blood 212 mg/dL (75-99)
[2019-11-16] MEDS: ERTAPENEM 1 GM in SODIUM CHLORIDE 0.9% 50 ML IVPB SCH (11:54)
[2019-11-16 14:55] VITALS: BP 169/93; PULSE 77; RESP 16; TEMP 98.1
--- NOTE | 2019-11-16 17:13 | P.PN ---
Progress Note - Text Progress Note Date: 11/16/19 REASON FOR FOLLOWUP: ESBL E coli urinary tract infection. INTERVAL HISTORY: The patient remains to be afebrile, the patient is breathing comfortably. The patient denies having any chest pain or shortness of breath. No cough, no nausea, no abdominal pain, no further diarrhea. PHYSICAL EXAM: Blood pressure 176/90 with a pulse of 03, temp 98.1, she is 100% on room air. General description is an elderly female, up in the bed in no distress. RESPIRATORY SYSTEM: Unlabored breathing, clear to auscultation anteriorly. HEART: S1, S2. Regular rate and rhythm. ABDOMEN: Soft, no tenderness. LABS: No new labs IMPRESSION: Patient with ESBL E. coli urinary tract infection. Patient underlying infection Has been adequately treated. Recommend discontinue Invanz on discharge. Continue supportive care.
--- NOTE | 2019-11-16 19:22 | DS ---
DISCHARGE SUMMARY DATE OF SERVICE: 11/16/2019. FINAL DIAGNOSIS: 1. Generalized weakness and fall and possibly vertebrobasilar insufficiency. 2. Fever, increased WBC. 3. Acute UTI with E coli ESBL and as well as Enterococcus faecalis with sepsis, improved. 4. Severe atherosclerotic narrowing of the bilateral vertebral artery at the level of C1. 5. 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 6. Short segment of mild degree of stenosis in the right posterior cerebral artery. 7. Hyponatremia. 8. Diabetes mellitus type 2. 9. Adrenocortical insufficiency. 10.History of severe intractable headache and previous history of migraine cephalalgia. 11.Gait dysfunction. 12.History of recurrent urinary tract infections. 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 14.Chronic obstructive pulmonary disease. 15.History of deep vein thrombosis. 16.Fibromyalgia. 17.Hypertension. 18.Hyperlipidemia. 19.History of pneumonia. 20.History of sleep apnea. 21.History of bronchitis. 22.History of hyperparathyroidism. 23.History of exophthalmos. 24.History of degenerative joint disease. 25.History of toe amputation. 26.History of cardiac murmur. 27.History ESBL and MRSA. 28.History of cholecystectomy. 29.FULL CODE. HISTORY OF PRESENT ILLNESS: This 69-year-old woman who presented with multiple medical problems being followed by Dr. Gonsales in the outpatient setting. The patient was treated with empiric antibiotics. Patient improved significantly. Dr. Osman saw the patient and completed a course of antibiotics for ESBL E coli Enterococcus faecalis and basically the labs are improved. Blood pressure was well controlled. The patient improved significantly. The patient is keen on going home. On exam, vitals are stable. Cardiovascular: S1, S2. Abdomen soft. Nervous system: No focal deficits. DISCHARGE ADVICE AND MEDICATIONS: 1. Discharge diet is cardiac diet. 2. Activity limited until followup. 3. Follow up with Dr. Andrew Gonsales in 2-3 days. 4. Follow up with Dr. Gwendolyn Lai vascular surgery as recommended. MEDICATIONS: 1. Alphagan 2% 1 drop right eye. 2. Antivert 25 mg t.i.d. p.r.n. 3. Compazine 5 mg p.o. t.i.d. 4. Cortef 15 mg a.c. breakfast and 5 mg q.h.s. and 10 mg a.c. at lunch. 5. Cranberry tablets 300 mg p.o. b.i.d. 6. Effexor XR 75 mg p.o. daily. 7. Folic acid 0.4 mg p.o. daily. 8. Glucagon Emergency Kit. 9. Iron 320 mg p.o. daily. 10.Lantus 26 units subcu q.h.s. 11.Melatonin 5 mg q.h.s. p.r.n. 12.[place] 10 mg p.o. t.i.d. p.r.n. 13.KCl 99 mg p.o. daily. 14.Probiotic 2 capsules p.o. b.i.d. 15.Protonix 40 mg p.o. daily. 16.Reglan 5 mg p.o. daily. 17.Multivitamins 30 mL t.i.d. 18.Toprol-XL 50 mg q.h.s. 19.Tylenol p.r.n. 20.Thiamine 100 mg p.o. daily. 21.Vitamin B complex 1 drop b.i.d. 22.Vitamin D3 3000 daily. 23.Zestril 50 mg p.o. daily. 24.Aldactone 50 mg p.o. daily. 25.Aspirin 81 mg p.o. daily. 26.Butalbital 1 tablet p.o. q.4h p.r.n. 27.Lipitor 40 mg q.h.s. 28.Magnesium oxide 400 mg p.o. b.i.d. 29.Neurontin 200 mg p.o. t.i.d. 30.NovoLog FlexPen 18 units subcutaneously before meals t.i.d. 31.Plavix 75 mg p.o. daily. 32.Zofran 4 mg q.8h p.r.n. The patient discharged in stable condition with guarded prognosis. MMODL / IJN: [id number] /
== END 2019-11-16 16:34 | disposition home or self-care (01) | DRG 872 ==
LOC: EC 17:16 → 4SSUR 21:09 → OBSVTOIN 11-10 10:09
PROVIDERS: ADMIT Family Medicine; ATTEND Family Medicine
DX: A41.51 Sepsis due to Escherichia coli [E. coli] (principal); N39.0 Urinary tract infection, site not specified; E27.40 Unspecified adrenocortical insufficiency; E87.2 Acidosis; E87.1 Hypo-osmolality and hyponatremia; G45.0 Vertebro-basilar artery syndrome; Z16.12 Extended spectrum beta lactamase (ESBL) resistance; Z11.59 Encounter for screening for other viral diseases; I66.21 Occlusion and stenosis of right posterior cerebral artery; I67.1 Cerebral aneurysm, nonruptured; Z79.4 Long term (current) use of insulin; E11.65 Type 2 diabetes mellitus with hyperglycemia; E21.3 Hyperparathyroidism, unspecified; Z89.421 Acquired absence of other right toe(s); J44.9 Chronic obstructive pulmonary disease, unspecified; E86.0 Dehydration; E78.5 Hyperlipidemia, unspecified; M79.7 Fibromyalgia; G47.30 Sleep apnea, unspecified; M15.9 Polyosteoarthritis, unspecified; M54.81 Occipital neuralgia; R27.0 Ataxia, unspecified; G43.111 Migraine with aura, intractable, with status migrainosus; R29.6 Repeated falls; M25.551 Pain in right hip; M89.9 Disorder of bone, unspecified; I10 Essential (primary) hypertension; R01.1 Cardiac murmur, unspecified; R47.81 Slurred speech; T38.0X5A Adverse effect of glucocorticoids and synthetic analogues, initial encounter; W01.0XXA Fall on same level from slipping, tripping and stumbling without subsequent striking against object, initial encounter; Z71.3 Dietary counseling and surveillance; Z79.899 Other long term (current) drug therapy; Z79.82 Long term (current) use of aspirin; Z87.442 Personal history of urinary calculi; Z87.01 Personal history of pneumonia (recurrent); Z87.440 Personal history of urinary (tract) infections; Z86.718 Personal history of other venous thrombosis and embolism; Z87.81 Personal history of (healed) traumatic fracture; Z87.828 Personal history of other (healed) physical injury and trauma; Z86.14 Personal history of Methicillin resistant Staphylococcus aureus infection; Z90.49 Acquired absence of other specified parts of digestive tract; Z98.890 Other specified postprocedural states; Z90.710 Acquired absence of both cervix and uterus; Z86.73 Personal history of transient ischemic attack (TIA), and cerebral infarction without residual deficits; Z91.81 History of falling; Z86.69 Personal history of other diseases of the nervous system and sense organs; Z86.19 Personal history of other infectious and parasitic diseases; Z87.09 Personal history of other diseases of the respiratory system; Z87.448 Personal history of other diseases of urinary system; Z88.1 Allergy status to other antibiotic agents; Z88.5 Allergy status to narcotic agent; Z88.2 Allergy status to sulfonamides; Z88.8 Allergy status to other drugs, medicaments and biological substances; Z83.3 Family history of diabetes mellitus; Z82.49 Family history of ischemic heart disease and other diseases of the circulatory system; Z82.3 Family history of stroke; Z83.1 Family history of other infectious and parasitic diseases; Z80.49 Family history of malignant neoplasm of other genital organs
CPT/HCPCS: 36415; 70450; 70496; 71045; 72125; 73502; 80048; 80053; 81001; 81003; 82533; 83036; 83605; 83735; 84132; 84484; 85025; 85610; 85730; 87040; 87077; 87086; 87186; 87635; 93005; 96361; 96374; 96375; 99285

== ENCOUNTER 2019-11-26 15:21 | Inpatient (IN) | payer MEDICARE, BC ==
[2019-11-26 17:08] LABS: Appearance,Urine Cloudy (Clear); Bacteria,Urine Rare /hpf; Bilirubin,Urine Negative (Negative); Blood,Urine Moderate (Negative); Color,Urine Yellow; Glucose,Urine (UA) 4+ (Negative); Hyaline Casts,Urine 13 /lpf (0-2); Leukocyte Esterase,Urine Large (Negative); Mucus,Urine Moderate /hpf; Nitrite,Urine Negative (Negative); Protein,Urine 2+ (Negative); RBC,Urine 48 /hpf (0-5); Squamous Epithelial Cell,Urine 2 /hpf (0-4); WBC,Urine 109 /hpf (0-5)
[2019-11-26 17:16] LABS: Specific Gravity,Urine 1.047 (1.001-1.035)
[2019-11-26 17:18] LABS: Ketones,Urine 2+ (Negative)
[2019-11-26] MEDS ORDERED: SODIUM CHLORIDE 0.9% 1,000 ML IV ONE (17:57)
[2019-11-26] MEDS ORDERED: ONDANSETRON 4 MG/2 ML VIAL IVP STA (17:57)
[2019-11-26] MEDS ORDERED: HYDROmorphone 0.5 MG/0.5 ML SYRINGE IVP STA (17:57)
[2019-11-26 18:05] LABS: ALT 16 U/L (4-34); AST 23 U/L (14-36); African American GFR (CKD) >90 (>60 ml/min/1.73 sqM); Albumin 4.7 g/dL (3.5-5.0); Alkaline Phosphatase 83 U/L (38-126); Anion Gap 13 mmol/L; Blood Urea Nitrogen 21 mg/dL (7-17); Carbon Dioxide 24 mmol/L (22-30); Chloride 99 mmol/L (98-107); Glucose 254 mg/dL (74-99); Non-African American GFR(CKD) >90 (>60 ml/min/1.73 sqM); Potassium 4.8 mmol/L (3.5-5.1); Sodium 136 mmol/L (137-145); Total Bilirubin 0.5 mg/dL (0.2-1.3); Total Protein 7.4 g/dL (6.3-8.2)
[2019-11-26 19:04] LABS: Basophils % (A) 0 %; Eosinophils # (A) 0.1 k/uL (0-0.7); Eosinophils % (A) 1 %; HCT 48.3 % (34.0-46.0); HGB 15.5 gm/dL (11.4-16.0); Lymphocytes # (A) 1.4 k/uL (1.0-4.8); Lymphocytes % (A) 11 %; MCH 29.1 pg (25.0-35.0); Mean Platelet Volume 7.8; Monocytes # (A) 0.4 k/uL (0-1.0); Monocytes % (A) 3 %; Neutrophils # (A) 11.5 k/uL (1.3-7.7); Neutrophils % (A) 85 %; Platelet Count 271 k/uL (150-450); RBC 5.31 m/uL (3.80-5.40); RDW 14.2 % (11.5-15.5); WBC 13.6 k/uL (3.8-10.6)
--- NOTE | 2019-11-26 20:10 | CT ---
EXAMINATION TYPE: CT abdomen pelvis wo con DATE OF EXAM: 11/26/2019 COMPARISON: 10/08/2018 HISTORY: abdominal/flank pain, UTI CT DLP: 664.2 mGycm Automated exposure control for dose reduction was used. The lung bases are clear of consolidation. There is no pleural effusion. There is mild subsegmental a telectasis. Heart is borderline enlarged. The stomach is intact. Spleen is intact. There is no pancre atic mass. The bile ducts are not dilated. There are clips from cholecystectomy. Liver shows no focal defect. There is no adrenal mass. There are small bilateral renal calculi. There is no hydronephrosis. Ureter s are not dilated. There are renal cortical cysts and the largest measures 3 cm on the anterior left kidney. There is no retroperitoneal adenopathy. Ureters are not dilated. Bladder distends smoothly. T here is no inguinal hernia. There is cortical thickening related to old pubic bilateral fractures. Th ere is no free fluid in the pelvis. There is hysterectomy. There is no mesenteric edema. There is no ascites or free air. There is no bowel obstruction. There i s multilevel posterior lumbar spine fusion surgery. Vertebra have normal alignment. There is disc spa ce narrowing from L2 to S1. There is no compression fracture. IMPRESSION: Nonobstructing bilateral renal calculi. No sign of acute abdomen and pelvis. Mild scarring and subseg mental atelectasis at the lung bases unchanged.
[2019-11-26] MEDS ORDERED: ERTAPENEM 1 GM in SODIUM CHLORIDE 0.9% 50 ML IVPB STA (21:10)
[2019-11-26] MEDS ORDERED: BUTALB/APAP/CAFF 50-325-40MG TAB PO PRN (21:16)
[2019-11-26] MEDS ORDERED: METOCLOPRAMIDE 5 MG TAB PO PRN (21:16)
[2019-11-26] MEDS ORDERED: MELATONIN 5 MG TABLET PO PRN (21:16)
[2019-11-26] MEDS ORDERED: MECLIZINE 25 MG TAB PO PRN (21:16)
--- NOTE | 2019-11-26 21:16 | ED ---
Female Urogenital HPI - General Source: patient Mode of arrival: wheelchair Limitations: no limitations <Chanelle Brown - Last Filed: 11/26/19 21:12> <Familia Gill - Last Filed: 11/26/19 21:30> - General Chief complaint: Urogenital Stated complaint: UTI Time Seen by Provider: 11/26/19 17:34 - History of Present Illness Initial comments: 69-year-old female patient presents to the emergency department today for evaluation of weakness, shaking, and dysuria. Patient states that she is had symptoms for the last 2 days. States that she is also experiencing right flank pain with radiation to the right groin. States she does have a history of kidney stones. Denies any obvious hematuria. Denies any known fever. States she has been mildly nauseated with denies vomiting. States she is passing gas and having normal bowel movements. Patient does have history significant for frequent urinary tract infections with sepsis. Her last culture was positive for ESBL. Patient denies any recent rash, cough, shortness of breath, chest pain, numbness, tingling, dizziness, weakness, headache, visual changes, or any other complaints. (Chanelle Brown) - Related Data Home Medications Medication Instructions Recorded Confirmed Cholecalciferol [Vitamin D3 (25 3,000 unit PO DAILY@0700 12/01/14 11/26/19 Mcg = 1000 Iu)] Metoprolol Succinate (ER) [Toprol 50 mg PO HS 07/06/17 11/26/19 XL] Meclizine [Antivert] 25 mg PO TID PRN 11/26/17 11/26/19 Hydrocortisone [Cortef] 15 mg PO AC-BRKFST 05/18/18 11/26/19 Hydrocortisone [Cortef] 5 mg PO HS 06/26/18 11/26/19 Glucagon Emergency Kit 1 mg IM ONCE PRN 08/12/18 11/26/19 Cranberry 300mg 300 mg PO BID 10/08/18 11/26/19 Ferrous Sulfate [Iron (65 MG 325 mg PO DAILY 10/08/18 11/26/19 Elemental)] Folic Acid 0.4 mg PO DAILY 10/08/18 11/26/19 L.acidoph,Paracasei, B.lactis 2 cap PO BID 10/08/18 11/26/19 [Probiotic] Melatonin 5 mg PO HS PRN 10/08/18 11/26/19 Multivitamins, Thera Liquid 30 ml PO DAILY 10/08/18 11/26/19 [Theragran Liquid (formulary)] Potassium 99 mg PO DAILY 10/08/18 11/26/19 Thiamine [Vitamin B-1] 100 mg PO DAILY 10/08/18 11/26/19 Vitamin B-Complex Drops 1 drop PO BID 10/08/18 11/26/19 Lisinopril [Zestril] 15 mg PO DAILY 11/08/18 11/26/19 HYDROcodone/APAP 10-325MG [[place] 1 tab PO TID PRN 12/26/18 11/26/19 10-325] Pantoprazole [Protonix] 40 mg PO DAILY 01/29/19 11/26/19 Hydrocortisone [Cortef] 10 mg PO AC-LUNCH 08/30/19 11/26/19 Brimonidine Tartrate [Alphagan P 1 drop RIGHT EYE BID 08/31/19 11/26/19 0.2% Ophth Soln] Acetaminophen [Tylenol Extra 1,000 mg PO DAILY PRN 09/12/19 11/26/19 Strength] Insulin Aspart [NovoLOG Flexpen] 14 units SQ AC-BRKFST 10/28/19 11/26/19 Metoclopramide [Reglan] 5 mg PO DAILY PRN 10/28/19 11/26/19 Insulin Glargine,Hum.rec.anlog 26 unit SQ HS 11/08/19 11/26/19 [Lantus Solostar] Prochlorperazine [Compazine] 5 mg PO TID 11/08/19 11/26/19 Venlafaxine HCl [Effexor XR] 75 mg PO DAILY 11/08/19 11/26/19 Previous Rx's Medication Instructions Recorded Aspirin 81 mg PO DAILY #0 07/02/18 Atorvastatin [Lipitor] 40 mg PO HS #30 tab 11/16/18 Magnesium Oxide [Mag-Ox] 400 mg PO BID #1 tab 09/16/19 Insulin Aspart [NovoLOG Flexpen] 18 units SQ AC-LUNCH #0 09/24/19 Insulin Aspart [NovoLOG Flexpen] 22 units SQ AC-SUPPER #0 09/24/19 Butalb/APAP/Caff 50-325-40Mg 1 tab PO Q4H PRN #18 tablet 10/30/19 [Fioricet 50-325-40] Ondansetron HCl [Zofran] 4 mg PO Q8H PRN #30 tab 10/30/19 Clopidogrel [Plavix] 75 mg PO DAILY #30 tab 11/16/19 Spironolactone [Aldactone] 50 mg PO DAILY #30 tab 11/16/19 Allergies Allergy/AdvReac Type Severity Reaction Status Date / Time butorphanol tartrate Allergy BLISTERS Verified 11/26/19 20:50 [From Stadol] IN MOUTH ceftriaxone [From Rocephin] Allergy Unknown Verified 11/26/19 20:50 clarithromycin [From Biaxin] Allergy Rash/Hives Verified 11/26/19 20:50 codeine Allergy Rash/Hives Verified 11/26/19 20:50 ergotamine tartrate Allergy Unknown Verified 11/26/19 20:50 [From Cafergot] erythromycin base Allergy RASH, GI Verified 11/26/19 20:50 [From E-Mycin] SYMPTOMS ketorolac tromethamine Allergy Rash/Hives Verified 11/26/19 20:50 [From Toradol] liraglutide [From Victoza] Allergy Rash/Hives Verified 11/26/19 20:50 morphine Allergy Rash/Hives Verified 11/26/19 20:50 Penicillins Allergy Rash/Hives Verified 11/26/19 20:50 pentazocine lactate Allergy SEVERE Verified 11/26/19 20:50 [From Talwin] BLISTERS IN MOUTH pregabalin [From Lyrica] Allergy Rash/Hives Verified 11/26/19 20:50 propoxyphene HCl Allergy Rash/Hives Verified 11/26/19 20:50 [From Darvon] Sulfa (Sulfonamide Allergy Rash/Hives Verified 11/26/19 20:50 Antibiotics) tramadol Allergy Unknown Verified 11/26/19 20:50 monosodium glutamate [MSG] AdvReac Nausea & Verified 11/26/19 20:50 Vomiting nalbuphine HCl [From Nubain] AdvReac Nausea & Verified 11/26/19 20:50 Vomiting Review of Systems ROS Other: All systems not noted in ROS Statement are negative. <Chanelle Brown - Last Filed: 11/26/19 21:12> ROS Other: All systems not noted in ROS Statement are negative. <Familia Gill - Last Filed: 11/26/19 21:30> ROS Statement: Those systems with pertinent positive or pertinent negative responses have been documented in the HPI. 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, R wrist/elbow nerve repair, bone removed R shoulder, 4th toe R foot partial amputation, bilateral feet/bunionectomies, R knee arthroscopies, R orbit decompression with ethmoidectomy and eyelid lift, EGD, colonoscopies, cystocopies, lithotripsy/stents, total hysterectomy, bilateral breast reduction, bilateral cataract removals.Parathyroid surgery - April 2019, pain clinic procedures Past Anesthesia/Blood Transfusion Reactions: No Reported Reaction Additional Past Anesthesia/Blood Transfusion Reaction / Comment(s): never recieved blood Past Psychological History: No Psychological Hx Reported Smoking Status: Never smoker Past Alcohol Use History: Occasional Past Drug Use History: None Reported - Past Family History Father Family Medical History: Coronary Artery Disease (CAD), CVA/TIA, Diabetes Mellitus, Myocardial Infarction (AL), Pneumonia Additional Family Medical History / Comment(s): Father at the age of 78yrs from AL and pneumonia. Mother Family Medical History: Cancer Additional Family Medical History / Comment(s): Mother had uterine cancer. She recently at the age of 96yrs old. <Chanelle Brown - Last Filed: 11/26/19 21:12> General Exam Limitations: no limitations General appearance: alert, in no apparent distress, other (Physical well- developed, well-nourished elderly female patient in no acute distress. Vital signs upon presentation are temperature 98.4F, pulse 120, respirations 18, blood pressure 164/99, pulse ox 98% on room air) Eye exam: Present: normal appearance, PERRL, EOMI. Absent: scleral icterus, conjunctival injection, periorbital swelling ENT exam: Present: normal exam, normal oropharynx, mucous membranes moist Respiratory exam: Present: normal lung sounds bilaterally. Absent: respiratory distress, wheezes, rales, rhonchi, stridor Cardiovascular Exam: Present: normal rhythm, tachycardia, normal heart sounds. Absent: systolic murmur, diastolic murmur, rubs, gallop, clicks GI/Abdominal exam: Present: soft, normal bowel sounds. Absent: distended, ten derness, guarding, rebound, rigid Back exam: Present: CVA tenderness (R) Neurological exam: Present: alert, oriented X3, CN II-XII intact Psychiatric exam: Present: normal affect, normal mood Skin exam: Present: warm, dry, intact, normal color. Absent: rash <Chanelle Brown - Last Filed: 11/26/19 21:12> Course <Familia Gill - Last Filed: 11/26/19 21:30> Vital Signs 11/26/19 16:07 Temperature 98.4 F Pulse Rate 120 H Respiratory 18 Rate Blood Pressure 164/99 O2 Sat by Pulse 98 Oximetry - Reevaluation(s) Reevaluation #1: 11/26/19 21:28 T[employer] DOWN [employer] supervision: I personally evaluate this case patient did present with complaints of dysuria and has evidence of UTI. Previously she had required IV antibiotics however for treatment due to resistance. Patient will be admitted 11/26/19 21:29 Case is discussed with Dr. Marley (Familia Gill) Medical Decision Making - Lab Data Result diagrams: 11/26/19 18:30 11/26/19 17:31 - Radiology Data Radiology results: report reviewed, image reviewed <Chanelle Brown - Last Filed: 11/26/19 21:12> - Lab Data Result diagrams: 11/26/19 18:30 11/26/19 17:31 <Familia Gill - Last Filed: 11/26/19 21:30> - Medical Decision Making 69-year-old female patient presents to the emergency department today for evaluation of dysuria, right flank pain, weakness. Physical examination did reveal mild right CVA tenderness. Labs reviewed and did reveal normal white blood cell count. If she does have evidence for urinary tract infection with 109 white blood cells, 43 red blood cells, large leukocyte esterase. Review of previous urine culture shows positive ESBL only susceptible to IV antibiotics. We'll admit to the hospital on IV Invanz. Case was discussed with Dr. Gonsales and he agrees to admission. (Chanelle Brown) - Lab Data Lab Results 11/26/19 11/26/19 11/26/19 Range/Units 17:00 17:31 18:30 WBC 13.6 H (3.8-10.6) k/uL RBC 5.31 (3.80-5.40) m/uL Hgb 15.5 (11.4-16.0) gm/dL Hct 48.3 H (34.0-46.0) % MCV 91.0 (80.0-100.0) fL MCH 29.1 (25.0-35.0) pg MCHC 32.0 (31.0-37.0) g/dL RDW 14.2 (11.5-15.5) % Plt Count 271 (150-450) k/uL Neutrophils % 85 % Lymphocytes % 11 % Monocytes % 3 % Eosinophils % 1 % Basophils % 0 % Neutrophils # 11.5 H (1.3-7.7) k/uL Lymphocytes # 1.4 (1.0-4.8) k/uL Monocytes # 0.4 (0-1.0) k/uL Eosinophils # 0.1 (0-0.7) k/uL Basophils # 0.0 (0-0.2) k/uL Sodium 136 L (137-145) mmol/L Potassium 4.8 (3.5-5.1) mmol/L Chloride 99 (98-107) mmol/L Carbon Dioxide 24 (22-30) mmol/L Anion Gap 13 mmol/L BUN 21 H (7-17) mg/dL Creatinine 0.56 (0.52-1.04) mg/dL Est GFR (CKD-EPI)AfAm >90 (>60 ml/min/1.73 sqM) Est GFR (CKD-EPI)NonAf >90 (>60 ml/min/1.73 sqM) Glucose 254 H (74-99) mg/dL Plasma Lactic Acid Sudihr (0.7-2.0) mmol/L Calcium 10.0 (8.4-10.2) mg/dL Total Bilirubin 0.5 (0.2-1.3) mg/dL AST 23 (14-36) U/L ALT 16 (4-34) U/L Alkaline Phosphatase 83 (38-126) U/L Troponin I (0.000-0.034) ng/mL Total Protein 7.4 (6.3-8.2) g/dL Albumin 4.7 (3.5-5.0) g/dL Urine Color Yellow Urine Appearance Cloudy H (Clear) Urine pH 6.0 (5.0-8.0) Ur Specific [place] 1.047 H (1.001-1.035) Urine Protein 2+ H (Negative) Urine Glucose (UA) 4+ H (Negative) Urine Ketones 2+ H (Negative) Urine Blood Moderate H (Negative) Urine Nitrite Negative (Negative) Urine Bilirubin Negative (Negative) Urine Urobilinogen 2.0 (<2.0) mg/dL Ur Leukocyte Esterase Large H (Negative) Urine RBC 48 H (0-5) /hpf Urine WBC 109 H (0-5) /hpf Ur Squamous Epith Cells 2 (0-4) /hpf Urine Bacteria Rare H (None) /hpf Hyaline Casts 13 H (0-2) /lpf Urine Mucus Moderate H (None) /hpf 11/26/19 11/26/19 Range/Units 18:30 18:30 WBC (3.8-10.6) k/uL RBC (3.80-5.40) m/uL Hgb (11.4-16.0) gm/dL Hct (34.0-46.0) % MCV (80.0-100.0) fL MCH (25.0-35.0) pg MCHC (31.0-37.0) g/dL RDW (11.5-15.5) % Plt Count (150-450) k/uL Neutrophils % % Lymphocytes % % Monocytes % % Eosinophils % % Basophils % % Neutrophils # (1.3-7.7) k/uL Lymphocytes # (1.0-4.8) k/uL Monocytes # (0-1.0) k/uL Eosinophils # (0-0.7) k/uL Basophils # (0-0.2) k/uL Sodium (137-145) mmol/L Potassium (3.5-5.1) mmol/L Chloride (98-107) mmol/L Carbon Dioxide (22-30) mmol/L Anion Gap mmol/L BUN (7-17) mg/dL Creatinine (0.52-1.04) mg/dL Est GFR (CKD-EPI)AfAm (>60 ml/min/1.73 sqM) Est GFR (CKD-EPI)NonAf (>60 ml/min/1.73 sqM) Glucose (74-99) mg/dL Plasma Lactic Acid Sudhir 1.2 (0.7-2.0) mmol/L Calcium (8.4-10.2) mg/dL Total Bilirubin (0.2-1.3) mg/dL AST (14-36) U/L ALT (4-34) U/L Alkaline Phosphatase (38-126) U/L Troponin I <0.012 (0.000-0.034) ng/mL Total Protein (6.3-8.2) g/dL Albumin (3.5-5.0) g/dL Urine Color Urine Appearance (Clear) Urine pH (5.0-8.0) Ur Specific [place] (1.001-1.035) Urine Protein (Negative) Urine Glucose (UA) (Negative) Urine Ketones (Negative) Urine Blood (Negative) Urine Nitrite (Negative) Urine Bilirubin (Negative) Urine Urobilinogen (<2.0) mg/dL Ur Leukocyte Esterase (Negative) Urine RBC (0-5) /hpf Urine WBC (0-5) /hpf Ur Squamous Epith Cells (0-4) /hpf Urine Bacteria (None) /hpf Hyaline Casts (0-2) /lpf Urine Mucus (None) /hpf - Radiology Data CT abdomen and pelvis without contrast was obtained. Report was reviewed in its entirety. Impression by Dr. Horn shows nonobstructive bilateral renal calculi. No sign of acute abdomen and pelvis. Mild scarring subsegmental atelectasis at the lung bases unchanged. (Chanelle Brown) Disposition Decision to Admit Reason: Admit from EC Decision Date: 11/26/19 Decision Time: 21:16 <Chanelle Brown - Last Filed: 11/26/19 21:12> <Familia Gill - Last Filed: 11/26/19 21:30> Clinical Impression: Urinary tract infection, History of ESBL E. coli infection Disposition: ADMITTED IP TO THIS HOSP Condition: Serious Referrals: Andrew Gonsales MD [Primary Care Provider] - 1-2 days
[2019-11-26] MEDS ORDERED: NALOXONE 0.4 MG/ML 1 ML VIAL IV PRN (21:19)
[2019-11-26] MEDS: HYDROmorphone 0.5 MG/0.5 ML SYRINGE IVP PRN (21:57)
[2019-11-26 22:10] LABS: Glucose,Whole Blood 259 mg/dL (75-99)
[2019-11-26] MEDS ORDERED: SPIRONOLACTONE 25 MG TAB PO STA (22:15)
[2019-11-26] MEDS ORDERED: HYDROcodone/APAP 10-325MG 1 EACH TAB PO PRN (22:15)
[2019-11-26] MEDS ORDERED: INSULIN DETEMIR (LEVEMIR) 100 UNIT/ML SYR SQ STA (22:16)
[2019-11-26] MEDS: SODIUM CHLORIDE 0.9% 1,000 ML IV SCH (23:42)
[2019-11-26] MEDS: PROCHLORPERAZINE 5 MG TAB PO SCH (23:42)
[2019-11-27] MEDS: PROCHLORPERAZINE 5 MG TAB PO SCH ×4 (00:10→21:36)
[2019-11-27] MEDS: HYDROmorphone 0.5 MG/0.5 ML SYRINGE IVP PRN ×4 (01:41→17:59)
[2019-11-27] MEDS: ACETAMINOPHEN TAB 500 MG TAB PO PRN ×2 (04:39→21:56)
[2019-11-27] MEDS: ONDANSETRON 4 MG/2 ML VIAL IVP PRN ×2 (04:44→16:14)
[2019-11-27 06:38] LABS: Basophils % (A) 1 %; Eosinophils # (A) 0.1 k/uL (0-0.7); Eosinophils % (A) 1 %; HCT 43.9 % (34.0-46.0); HGB 13.9 gm/dL (11.4-16.0); Lymphocytes # (A) 1.8 k/uL (1.0-4.8); Lymphocytes % (A) 21 %; MCH 29.4 pg (25.0-35.0); MCHC 31.7 g/dL (31.0-37.0); MCV 92.9 fL (80.0-100.0); Mean Platelet Volume 8.1; Monocytes # (A) 0.5 k/uL (0-1.0); Monocytes % (A) 6 %; Neutrophils # (A) 5.9 k/uL (1.3-7.7); Neutrophils % (A) 70 %; Platelet Count 228 k/uL (150-450); RBC 4.72 m/uL (3.80-5.40); RDW 14.2 % (11.5-15.5); WBC 8.4 k/uL (3.8-10.6)
[2019-11-27 06:47] LABS: ALT 13 U/L (4-34); AST 19 U/L (14-36); African American GFR (CKD) >90 (>60 ml/min/1.73 sqM); Albumin 3.8 g/dL (3.5-5.0); Alkaline Phosphatase 65 U/L (38-126); Anion Gap 10 mmol/L; Blood Urea Nitrogen 19 mg/dL (7-17); Calcium 8.7 mg/dL (8.4-10.2); Carbon Dioxide 26 mmol/L (22-30); Chloride 101 mmol/L (98-107); Glucose 210 mg/dL (74-99); Non-African American GFR(CKD) >90 (>60 ml/min/1.73 sqM); Sodium 137 mmol/L (137-145); Total Bilirubin 0.4 mg/dL (0.2-1.3); Total Protein 6.2 g/dL (6.3-8.2)
[2019-11-27] MEDS: PANTOPRAZOLE 40 MG TABLET PO SCH (07:53)
[2019-11-27] MEDS: CHOLECALCIFEROL 1,000 UNIT TAB PO SCH (07:53)
[2019-11-27] MEDS: HYDROCORTISONE 10 MG TAB PO SCH ×3 (07:53→21:36)
[2019-11-27] MEDS: INSULIN ASPART (NovoLOG) 100 UNIT/ML VIAL SQ SCH ×5 (07:54→20:22)
[2019-11-27 07:57] LABS: Glucose,Whole Blood 183 mg/dL (75-99)
[2019-11-27] MEDS ORDERED: SPIRONOLACTONE 25 MG TAB PO SCH (09:00)
[2019-11-27] MEDS: VENLAFAXINE HCL ER 75 MG CAP PO SCH (09:07)
[2019-11-27] MEDS: LISINOPRIL 5 MG TAB PO SCH (09:07)
[2019-11-27] MEDS: LACTOBACILLUS ACIDOPH & BULGAR 1 EACH PACKET PO SCH ×3 (09:07→21:45)
[2019-11-27] MEDS: SPIRONOLACTONE 25 MG TAB PO SCH ×2 (09:07→20:21)
[2019-11-27] MEDS: THIAMINE 100 MG TAB PO SCH (09:09)
[2019-11-27] MEDS: CLOPIDOGREL 75 MG TAB PO SCH (09:09)
[2019-11-27] MEDS: FOLIC ACID 1 MG TAB PO SCH (09:09)
[2019-11-27] MEDS: MAGNESIUM OXIDE 400 MG TAB PO SCH ×2 (09:09→20:17)
[2019-11-27] MEDS: FERROUS SULFATE 325 MG TAB PO SCH (09:09)
[2019-11-27] MEDS: ASPIRIN 81 MG PO SCH (09:09)
[2019-11-27] MEDS: BRIMONIDINE TARTRATE 0.2% DROPS 5 ML BTL RIGHT EYE SCH ×2 (09:09→21:35)
[2019-11-27] MEDS: POTASSIUM CHLORIDE ER 10 MEQ TAB.ER.PRT PO SCH (09:09)
[2019-11-27 11:14] LABS: Glucose,Whole Blood 99 mg/dL (75-99)
[2019-11-27 11:38] LABS: Glucose,Whole Blood 115 mg/dL (75-99)
--- NOTE | 2019-11-27 15:55 | XR ---
EXAMINATION TYPE: XR lumbar spine 2 or 3V DATE OF EXAM: 11/27/2019 COMPARISON: 10/26/2011 HISTORY: Fall, pain TECHNIQUE: Three-view lumbar spine FINDINGS: There 5 lumbar-type vertebral bodies. Pedicle screws are present L3-S1. The L1 and L2 pedic les appear intact. Degenerative disc changes are present through the L3-S1 fixation levels. Degenerat gigi disc changes with spondylosis is noted at L2-3. Vertebral body heights appear preserved. No acute osseous abnormality is evident. IMPRESSION: 1. Multilevel degenerative disc changes. 2. Postsurgical changes. 3. No acute abnormality is identified.
[2019-11-27] MEDS: HYDROcodone/APAP 10-325MG 1 EACH TAB PO SCH ×2 (16:13→21:35)
[2019-11-27 16:55] LABS: Glucose,Whole Blood 221 mg/dL (75-99)
[2019-11-27 20:06] LABS: Glucose,Whole Blood 172 mg/dL (75-99)
[2019-11-27] MEDS: METOPROLOL SUCCINATE (ER) 50 MG TAB.ER.24H PO SCH (20:17)
[2019-11-27] MEDS: SODIUM CHLORIDE 0.9% 1,000 ML IV SCH (20:17)
[2019-11-27] MEDS: ATORVASTATIN 40 MG TAB PO SCH (20:17)
[2019-11-27] MEDS ORDERED: ERTAPENEM 1 GM in SODIUM CHLORIDE 0.9% 50 ML IVPB SCH (21:00)
[2019-11-27] MEDS: INSULIN DETEMIR (LEVEMIR) 100 UNIT/ML SYR SQ SCH (21:57)
[2019-11-28] MEDS ORDERED: ONDANSETRON 4 MG/2 ML VIAL ONE (01:25)
[2019-11-28] MEDS ORDERED: HYDROmorphone 0.5 MG/0.5 ML SYRINGE ONE (01:25)
[2019-11-28 06:26] LABS: Glucose,Whole Blood 111 mg/dL (75-99)
[2019-11-28] MEDS: CHOLECALCIFEROL 1,000 UNIT TAB PO SCH (06:42)
[2019-11-28] MEDS: HYDROmorphone 0.5 MG/0.5 ML SYRINGE IVP PRN ×3 (06:43→20:21)
--- NOTE | 2019-11-28 07:54 | P.HPIM ---
History of Present Illness H&P Date: 11/27/19 Chief Complaint: weakness, UTI Melissa Pena is a 69 yo F with hx chronic migraine, recent ESBL E coli UTI treated here with invanz, discharged approx 2 weeks ago who presented to the ED complaining of weakness, malaise, poor appetite and dysuria. She states she was doing well at home and completed her course of antibiotics but over the past 3-4 days began to feel increasingly weak and lost her appetite. She denies fever or vomiting but endorses nausea and states she has not been able to eat as much. She also complains of some low back pain after a fall at home where she lost her balance and fell backward a few days ago. In the ED her vitals were stable, WBC 13.6k, UA with large LE, positive ketones, neg nitrite. CT abd/pelvis negative. Review of Systems All systems: negative Constitutional: Reports malaise, Reports weakness, Denies chills, Denies fever Eyes: denies blurred vision, denies pain Ears, nose, mouth and throat: Denies headache, Denies sore throat Cardiovascular: Denies chest pain, Denies shortness of breath Respiratory: Denies cough Gastrointestinal: Denies abdominal pain, Denies diarrhea, Denies nausea, Denies vomiting Genitourinary: Reports as per HPI, Reports dysuria, Denies hematuria Musculoskeletal: Denies myalgias Integumentary: Denies pruritus, Denies rash Neurological: Denies numbness, Denies weakness Psychiatric: Denies anxiety, Denies depression Endocrine: Denies fatigue, Denies weight change 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, DVT R calf in 1976, cardiac murmur, occipital neuraligia, balance issues-has narrowing of vessels "in the back of my head", vertigo, varicosities, states rt shoulder torn rotator cuff History of Any Multi-Drug Resistant Organisms: ESBL, MRSA Date of last positivie culture/infection: 11/09/19 ESBL; 03/10/11 MRSA MDRO Source:: ESBL URINE; MRSA 4th rt TOE Past Surgical History: Appendectomy, Back Surgery, Bladder Surgery, Breast Surgery, Cholecystectomy, Heart Catheterization, Hysterectomy, Orthopedic Surgery, Tonsillectomy Additional Past Surgical History / Comment(s): Lumbar fusions, bladder brandy pension, occipital nerve blocks, 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, R wrist/elbow nerve repair, bone removed R shoulder, 4th toe R foot partial amputation, bilateral feet/bunionectomies, R knee arthroscopies, R orbit decompression with ethmoidectomy and eyelid lift, EGD, colonoscopies, cystocopi es, lithotripsy/stents, bilateral breast reduction, bilateral cataract removals, parathyroid surgery - April 2019, pain clinic procedures Past Anesthesia/Blood Transfusion Reactions: No Reported Reaction Additional Past Anesthesia/Blood Transfusion Reaction / Comment(s): never recieved blood Smoking Status: Never smoker - Past Family History Father Family Medical History: Coronary Artery Disease (CAD), CVA/TIA, Diabetes Mellitus, Myocardial Infarction ([place]), Pneumonia Additional Family Medical History / Comment(s): Father at the age of 78yrs from [place] and pneumonia. Mother Family Medical History: Cancer Additional Family Medical History / Comment(s): Mother had uterine cancer. She recently at the age of 96yrs old from [employer]. Medications and Allergies Home Medications Medication Instructions Recorded Confirmed Type Cholecalciferol [Vitamin D3 (25 3,000 unit PO DAILY@0700 12/01/14 11/26/19 History Mcg = 1000 Iu)] Metoprolol Succinate (ER) [Toprol 50 mg PO HS 07/06/17 11/26/19 History XL] Meclizine [Antivert] 25 mg PO TID PRN 11/26/17 11/26/19 History Hydrocortisone [Cortef] 15 mg PO AC-BRKFST 05/18/18 11/26/19 History Hydrocortisone [Cortef] 5 mg PO HS 06/26/18 11/26/19 History Aspirin 81 mg PO DAILY #0 07/02/18 11/26/19 Rx Glucagon Emergency Kit 1 mg IM ONCE PRN 08/12/18 11/26/19 History Cranberry 300mg 300 mg PO BID 10/08/18 11/26/19 History Ferrous Sulfate [Iron (65 MG 325 mg PO DAILY 10/08/18 11/26/19 History Elemental)] Folic Acid 0.4 mg PO DAILY 10/08/18 11/26/19 History L.acidoph,Paracasei, B.lactis 2 cap PO BID 10/08/18 11/26/19 History [Probiotic] Melatonin 5 mg PO HS PRN 10/08/18 11/26/19 History Multivitamins, Thera Liquid 30 ml PO DAILY 10/08/18 11/26/19 History [Theragran Liquid (formulary)] Potassium 99 mg PO DAILY 10/08/18 11/26/19 History Thiamine [Vitamin B-1] 100 mg PO DAILY 10/08/18 11/26/19 History Vitamin B-Complex Drops 1 drop PO BID 10/08/18 11/26/19 History Lisinopril [Zestril] 15 mg PO DAILY 11/08/18 11/26/19 History Atorvastatin [Lipitor] 40 mg PO HS #30 tab 11/16/18 11/26/19 Rx HYDROcodone/APAP 10-325MG [[place] 1 tab PO TID PRN 12/26/18 11/26/19 History 10-325] Pantoprazole [Protonix] 40 mg PO DAILY 01/29/19 11/26/19 History Hydrocortisone [Cortef] 10 mg PO AC-LUNCH 08/30/19 11/26/19 History Brimonidine Tartrate [Alphagan P 1 drop RIGHT EYE BID 08/31/19 11/26/19 History 0.2% Ophth Soln] Acetaminophen [Tylenol Extra 1,000 mg PO DAILY PRN 09/12/19 11/26/19 History Strength] Magnesium Oxide [Mag-Ox] 400 mg PO BID #1 tab 09/16/19 11/26/19 Rx Insulin Aspart [NovoLOG Flexpen] 18 units SQ AC-LUNCH #0 09/24/19 11/26/19 Rx Insulin Aspart [NovoLOG Flexpen] 22 units SQ AC-SUPPER #0 09/24/19 11/26/19 Rx Insulin Aspart [NovoLOG Flexpen] 14 units SQ AC-BRKFST 10/28/19 11/26/19 History Metoclopramide [Reglan] 5 mg PO DAILY PRN 10/28/19 11/26/19 History Butalb/APAP/Caff 50-325-40Mg 1 tab PO Q4H PRN #18 tablet 10/30/19 11/26/19 Rx [Fioricet 50-325-40] Ondansetron HCl [Zofran] 4 mg PO Q8H PRN #30 tab 10/30/19 11/26/19 Rx Insulin Glargine,Hum.rec.anlog 26 unit SQ HS 11/08/19 11/26/19 History [Lantus Solostar] Prochlorperazine [Compazine] 5 mg PO TID 11/08/19 11/26/19 History Venlafaxine HCl [Effexor XR] 75 mg PO DAILY 11/08/19 11/26/19 History Clopidogrel [Plavix] 75 mg PO DAILY #30 tab 11/16/19 11/26/19 Rx Spironolactone [Aldactone] 50 mg PO DAILY #30 tab 11/16/19 11/26/19 Rx Allergies Allergy/AdvReac Type Severity Reaction Status Date / Time butorphanol tartrate Allergy BLISTERS Verified 11/26/19 20:50 [From Stadol] IN MOUTH ceftriaxone [From Rocephin] Allergy Unknown Verified 11/26/19 20:50 clarithromycin [From Biaxin] Allergy Rash/Hives Verified 11/26/19 20:50 codeine Allergy Rash/Hives Verified 11/26/19 20:50 ergotamine tartrate Allergy Unknown Verified 11/26/19 20:50 [From Cafergot] erythromycin base Allergy RASH, GI Verified 11/26/19 20:50 [From E-Mycin] SYMPTOMS ketorolac tromethamine Allergy Rash/Hives Verified 11/26/19 20:50 [From Toradol] liraglutide [From Victoza] Allergy Rash/Hives Verified 11/26/19 20:50 morphine Allergy Rash/Hives Verified 11/26/19 20:50 Penicillins Allergy Rash/Hives Verified 11/26/19 20:50 pentazocine lactate Allergy SEVERE Verified 11/26/19 20:50 [From Talwin] BLISTERS IN MOUTH pregabalin [From Lyrica] Allergy Rash/Hives Verified 11/26/19 20:50 propoxyphene HCl Allergy Rash/Hives Verified 11/26/19 20:50 [From Darvon] Sulfa (Sulfonamide Allergy Rash/Hives Verified 11/26/19 20:50 Antibiotics) tramadol Allergy Unknown Verified 11/26/19 20:50 monosodium glutamate [MSG] AdvReac Nausea & Verified 11/26/19 20:50 Vomiting nalbuphine HCl [From Nubain] AdvReac Nausea & Verified 11/26/19 20:50 Vomiting Physical Exam Vitals: Vital Signs Temp Pulse Pulse Resp BP BP Pulse Ox 11/27/19 22:40 71 18 11/27/19 21:13 98.7 F 91 18 165/72 97 11/27/19 16:44 98.4 F 94 18 138/86 99 11/27/19 16:00 95 15 11/27/19 15:00 98.6 F 95 15 124/76 96 11/27/19 10:54 98.2 F 97 17 144/90 90 L 11/27/19 10:15 98.2 F 90 18 144/82 98 Intake and Output 11/27/19 11/28/19 11/28/19 22:59 06:59 14:59 Intake Total 27 180 Balance 27 180 Intake: Oral 27 180 Other: Voiding Method Toilet # Voids 1 2 # Bowel Movements 1 General: well nourished, well developed, NAD. Vitals reviewed Eyes: PERRL, EOMI, conjunctiva normal HENT: normocephalic, mucus membranes moist Neck: supple, no JVD Lungs: normal respiratory effort, no wheezes or rales CV: Regular rate and rhythm, no murmur. Peripheral pulses 2+ Abdomen: soft, nondistended, no organomegaly Lymph: no cervical or axillary LAD Skin: warm and dry. Neuro: A&Ox3, normal mood and affect Results CBC & Chem 7: 11/27/19 05:55 11/27/19 05:55 Labs: Abnormal Lab Results - Last 24 Hours (Table) 11/27/19 11/27/19 11/27/19 Range/Units 07:52 11:37 16:53 POC Glucose (mg/dL) 183 H 115 H 221 H (75-99) mg/dL 11/27/19 11/28/19 Range/Units 20:03 06:24 POC Glucose (mg/dL) 172 H 111 H (75-99) mg/dL Microbiology - Last 24 Hours (Table) 11/26/19 18:30 Blood Culture - Preliminary Blood No Growth after 24 hours 11/26/19 17:00 Urine Culture - Final Urine,Voided Thrombosis Risk Factor Assmnt - Choose All That Apply Any of the Below Risk Factors Present?: Yes Each Factor Represents 1 point: Obesity (BMI >25), Varicose veins Other Risk Factors: Yes Each Risk Factor Represents 2 Points: Age 61-74 years Other congenital or acquired thrombophilia - If yes, enter type in comment: No Thrombosis Risk Factor Assessment Total Risk Factor Score: 4 Thrombosis Risk Factor Assessment Level: Moderate Risk Assessment and Plan (1) History of ESBL E. coli infection Current Visit: Yes Status: Acute Code(s): Z86.19 - PERSONAL HISTORY OF OTHER INFECTIOUS AND PARASITIC DISEASES SNOMED Code(s): 553401602 (2) Acute cystitis Current Visit: No Status: Acute Code(s): N30.00 - ACUTE CYSTITIS WITHOUT HEMATURIA SNOMED Code(s): 60361180 (3) Adrenal insufficiency Current Visit: No Status: Acute Code(s): E27.40 - UNSPECIFIED ADRENOCORTICAL INSUFFICIENCY SNOMED Code(s): 727800335 (4) At risk for readmission to hospital Current Visit: No Status: Acute Code(s): Z91.89 - OTH PERSONAL RISK FACTORS, NOT ELSEWHERE CLASSIFIED SNOMED Code(s): 7582230585133 (5) CAD (coronary artery disease) Current Visit: No Status: Acute Code(s): I25.10 - ATHSCL HEART DISEASE OF [place] CORONARY ARTERY W/O ANG PCTRS SNOMED Code(s): 79447482 (6) Hyponatremia Current Visit: No Status: Acute Code(s): E87.1 - HYPO-OSMOLALITY AND HYPONATREMIA SNOMED Code(s): 80830894 (7) DM type 2 (diabetes mellitus, type 2) Current Visit: No Status: Chronic Code(s): E11.9 - TYPE 2 DIABETES MELLITUS WITHOUT COMPLICATIONS SNOMED Code(s): 02527552 Plan: 1. UTI with recent ESBL producing UTI. Admit to inpatient. Start IV Invanz. Follow urine culture 2. Low back pain. CT negative. Obtain low back XR 3. Chronic migraine. continue home [place] and fioricet 4. T2DM. Continue insulin. Accucheck, sliding scale 5. Adrenal insufficiency. Continue cortef
[2019-11-28] MEDS: INSULIN ASPART (NovoLOG) 100 UNIT/ML VIAL SQ SCH ×7 (08:07→21:35)
[2019-11-28] MEDS: THIAMINE 100 MG TAB PO SCH (08:16)
[2019-11-28] MEDS: LISINOPRIL 5 MG TAB PO SCH (08:16)
[2019-11-28] MEDS: HYDROcodone/APAP 10-325MG 1 EACH TAB PO SCH ×3 (08:16→21:36)
[2019-11-28] MEDS: PANTOPRAZOLE 40 MG TABLET PO SCH (08:16)
[2019-11-28] MEDS: SPIRONOLACTONE 25 MG TAB PO SCH ×2 (08:16→20:20)
[2019-11-28] MEDS: CLOPIDOGREL 75 MG TAB PO SCH (08:16)
[2019-11-28] MEDS: POTASSIUM CHLORIDE ER 10 MEQ TAB.ER.PRT PO SCH (08:16)
[2019-11-28] MEDS: ASPIRIN 81 MG PO SCH (08:16)
[2019-11-28] MEDS: FERROUS SULFATE 325 MG TAB PO SCH (08:16)
[2019-11-28] MEDS: FOLIC ACID 1 MG TAB PO SCH (08:17)
[2019-11-28] MEDS: HYDROCORTISONE 10 MG TAB PO SCH ×3 (08:17→20:20)
[2019-11-28] MEDS: PROCHLORPERAZINE 5 MG TAB PO SCH ×3 (08:17→21:35)
[2019-11-28] MEDS: MAGNESIUM OXIDE 400 MG TAB PO SCH ×2 (08:17→20:21)
[2019-11-28] MEDS: BRIMONIDINE TARTRATE 0.2% DROPS 5 ML BTL RIGHT EYE SCH ×2 (08:19→20:19)
[2019-11-28] MEDS: LACTOBACILLUS ACIDOPH & BULGAR 1 EACH PACKET PO SCH ×2 (08:19→21:34)
[2019-11-28] MEDS: VENLAFAXINE HCL ER 75 MG CAP PO SCH (10:07)
[2019-11-28 11:09] VITALS: BMI 27.9
[2019-11-28 11:47] LABS: Glucose,Whole Blood 99 mg/dL (75-99)
--- NOTE | 2019-11-28 13:18 | P.PN ---
Subjective Progress Note Date: 11/28/19 Melissa Pena is a 69 yo F with hx chronic migraine, recent ESBL E coli UTI treated here with invanz, discharged approx 2 weeks ago who presented to the ED complaining of weakness, malaise, poor appetite and dysuria. She states she was doing well at home and completed her course of antibiotics but over the past 3-4 days began to feel increasingly weak and lost her appetite. She denies fever or vomiting but endorses nausea and states she has not been able to eat as much. She also complains of some low back pain after a fall at home where she lost her balance and fell backward a few days ago. In the ED her vitals were stable, WBC 13.6k, UA with large LE, positive ketones, neg nitrite. CT abd/pelvis [place]. [id number] maintained on Invanz, urine culture reporting ronal, no ESBL. Afebrile. Minimal diet intake, no nausea or vomiting. Denies abdominal pain. Reporting diarrhea started last night with 5 episodes this morning. Discussed discharging home. Patient reports she is frustrated with not feeling well, frequent hospitalizations and her generalized weakness. Reports she is not ready for discharge, difficulty with balance, ambulating. Denies chest pain, palpitations or shortness of breath. Objective - Vital Signs Vital signs: Vital Signs Temp 98.7 F 11/27/19 21:13 Pulse 70 11/28/19 07:00 Resp 19 11/28/19 07:00 BP 142/74 11/28/19 07:00 Pulse Ox 91 L 11/28/19 07:00 Intake & Output 11/27/19 11/28/19 11/28/19 18:59 06:59 18:59 Intake Total 300 207 Balance 300 207 Weight 64.864 kg Intake: Oral 300 207 Other: Voiding Method Toilet Toilet Toilet # Voids 1 2 # Bowel Movements 1 1 - Exam General: well nourished, well developed, NAD. Tired appearing. Eyes: PERRL, EOMI, conjunctiva normal HENT: normocephalic, mucus membranes moist Neck: supple, no JVD Lungs: normal respiratory effort, no wheezes or rales CV: Regular rate and rhythm, no murmur. Peripheral pulses 2+ Abdomen: soft, nondistended, no organomegaly Lymph: no cervical or axillary LAD Skin: warm and dry. Neuro: A&Ox3, normal mood and affect - Labs CBC & Chem 7: 11/27/19 05:55 11/27/19 05:55 Labs: Abnormal Lab Results - Last 24 Hours (Table) 11/27/19 11/27/19 11/27/19 Range/Units 11:37 16:53 20:03 POC Glucose (mg/dL) 115 H 221 H 172 H (75-99) mg/dL 11/28/19 Range/Units 06:24 POC Glucose (mg/dL) 111 H (75-99) mg/dL Microbiology - Last 24 Hours (Table) 11/26/19 18:30 Blood Culture - Preliminary Blood No Growth after 24 hours 11/26/19 17:00 Urine Culture - Final Urine,Voided Assessment and Plan Assessment: (1) History of ESBL E. coli infection Current Visit: Yes Status: Acute Code(s): Z86.19 - PERSONAL HISTORY OF OTHER INFECTIOUS AND PARASITIC DISEASES SNOMED Code(s): 712882248 (2) Acute cystitis Current Visit: No Status: Acute Code(s): N30.00 - ACUTE CYSTITIS WITHOUT HEMATURIA SNOMED Code(s): 02524056 (3) Adrenal insufficiency Current Visit: No Status: Acute Code(s): E27.40 - UNSPECIFIED ADRENOCORTICAL INSUFFICIENCY SNOMED Code(s): 182911500 (4) At risk for readmission to hospital Current Visit: No Status: Acute Code(s): Z91.89 - OTH PERSONAL RISK FACTORS, NOT ELSEWHERE CLASSIFIED SNOMED Code(s): 3702763127367 (5) CAD (coronary artery disease) Current Visit: No Status: Acute Code(s): I25.10 - ATHSCL HEART DISEASE OF [place] CORONARY ARTERY W/O ANG PCTRS SNOMED Code(s): 89490750 (6) Hyponatremia Current Visit: No Status: Acute Code(s): E87.1 - HYPO-OSMOLALITY AND HYPONATREMIA SNOMED Code(s): 81698424 (7) DM type 2 (diabetes mellitus, type 2) Current Visit: No Status: Chronic Code(s): E11.9 - TYPE 2 DIABETES MELLITUS WITHOUT COMPLICATIONS SNOMED Code(s): 70717717 Plan: Continue current medication regime ,monitoring and symptomatic treatment. Urine culture reporting 50-100,000 scan and/or genital ronal, no ESBL.Invanz discontinnued. ID consulted for further recommendations. Initially had planned on discharging patient; patient complains of increased weakness, at home occu rring from the time she wakes up, lasting throughout the entire day. Reports difficulty with balance, ambulating. Neurology consulted. PT/OT consulted . Social work consulted regarding potential subacute rehab. Stool to be sent to rule out C. difficile colitis-reporting multiple diarrhea episodes. Prognosis guarded given multiple complex medical issues. Discharge planning in progress for tomorrow. The impression and plan of care has been dictated as directed. : I performed a history and examination of this patient, discussed the same with the dictator. I agree with the dictator's note ,documented as a scribe. Any additional findings or plans will be noted.
[2019-11-28 16:48] LABS: Glucose,Whole Blood 231 mg/dL (75-99)
[2019-11-28] MEDS: SODIUM CHLORIDE 0.9% 1,000 ML IV SCH (17:39)
[2019-11-28] MEDS: ERTAPENEM 1 GM in SODIUM CHLORIDE 0.9% 50 ML IVPB SCH (20:19)
[2019-11-28] MEDS: METOPROLOL SUCCINATE (ER) 50 MG TAB.ER.24H PO SCH (20:20)
[2019-11-28] MEDS: ATORVASTATIN 40 MG TAB PO SCH (20:20)
[2019-11-28] MEDS: ONDANSETRON 4 MG/2 ML VIAL IVP PRN (20:21)
[2019-11-28 21:30] LABS: Glucose,Whole Blood 192 mg/dL (75-99)
[2019-11-28] MEDS: INSULIN DETEMIR (LEVEMIR) 100 UNIT/ML SYR SQ SCH (21:35)
--- NOTE | 2019-11-28 22:31 | P.CONS ---
History of Present Illness - Reason for Consult Consult date: 11/28/19 UTI Requesting physician: Andrew Gonsales - Chief Complaint Dysuria and right flank pain x 2 days - History of Present Illness Patient is 69-year-old female the past medical history significant for recurrent urinary tract infection recently treated for a ESBL E. coli cystitis patient did have a follow-up urine culture negative and was subsequent discharged home on no antibiotics patient now presenting back to the ER at [facility] 2 days ago with a chief complaints of 4 weakness shaking and dysuria patient said to have going on for about 2 days before she was in the hospital initially started with a frequency burning urine no hematuria and pain in the right flank area patient described the pain) to be sharp at times dull aching intensity could be 7 out of 10 and no radiation patient has minimal felt nauseated but no vomiting no diarrhea on presentation however started having diarrhea here after patient was admitted to the hospital patient on arrival to the ER did have low-grade fever 100.3 F patient did have a white count of 13.6 UA was positive with large leukocyte esterase 109 WBC fernandez PCR was negative urine drug coming back negative blood culture has been negative she did receive 1 dose of Invanz yesterday infectious disease was consulted today for further management of antibiotic therapy. Review of Systems Positive point has been mentioned in HPI rest of the systems are negative 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, DVT R calf in 1976, cardiac murmur, occipital neuraligia, balance issues-has narrowing of vessels "in the back of my head", vertigo, varicosities, 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, R wrist/elbow nerve repair, bone removed R shoulder, 4th toe R foot partial amputation, bilateral feet/bunionectomies, R knee arthroscopies, R orbit decompression with ethmoidectomy and eyelid lift, EGD, colonoscopies, cystocopies, lithotripsy/stents, bilateral breast reduction, bilateral cataract removals, parathyroid surgery - April 2019, pain clinic procedures Past Anesthesia/Blood Transfusion Reactions: No Reported Reaction Additional Past Anesthesia/Blood Transfusion Reaction / Comm: never recieved blood Smoking Status: Never smoker - Past Family History Father Family Medical History: Coronary Artery Disease (CAD), CVA/TIA, Diabetes Mellitus, Myocardial Infarction ([place]), Pneumonia Additional Family Medical History / Comment(s): Father at the age of 78yrs from [place] and pneumonia. Mother Family Medical History: Cancer Additional Family Medical History / Comment(s): Mother had uterine cancer. She recently at the age of 96yrs old from [facility]. Medications and Allergies Home Medications Medication Instructions Recorded Confirmed Type Cholecalciferol [Vitamin D3 (25 3,000 unit PO DAILY@0700 12/01/14 11/26/19 History Mcg = 1000 Iu)] Metoprolol Succinate (ER) [Toprol 50 mg PO HS 07/06/17 11/26/19 History XL] Meclizine [Antivert] 25 mg PO TID PRN 11/26/17 11/26/19 History Hydrocortisone [Cortef] 15 mg PO AC-BRKFST 05/18/18 11/26/19 History Hydrocortisone [Cortef] 5 mg PO HS 06/26/18 11/26/19 History Aspirin 81 mg PO DAILY #0 07/02/18 11/26/19 Rx Glucagon Emergency Kit 1 mg IM ONCE PRN 08/12/18 11/26/19 History Cranberry 300mg 300 mg PO BID 10/08/18 11/26/19 History Ferrous Sulfate [Iron (65 MG 325 mg PO DAILY 10/08/18 11/26/19 History Elemental)] Folic Acid 0.4 mg PO DAILY 10/08/18 11/26/19 History L.acidoph,Paracasei, B.lactis 2 cap PO BID 10/08/18 11/26/19 History [Probiotic] Melatonin 5 mg PO HS PRN 10/08/18 11/26/19 History Multivitamins, Thera Liquid 30 ml PO DAILY 10/08/18 11/26/19 History [Theragran Liquid (formulary)] Potassium 99 mg PO DAILY 10/08/18 11/26/19 History Thiamine [Vitamin B-1] 100 mg PO DAILY 10/08/18 11/26/19 History Vitamin B-Complex Drops 1 drop PO BID 10/08/18 11/26/19 History Lisinopril [Zestril] 15 mg PO DAILY 11/08/18 11/26/19 History Atorvastatin [Lipitor] 40 mg PO HS #30 tab 11/16/18 11/26/19 Rx HYDROcodone/APAP 10-325MG [[place] 1 tab PO TID PRN 12/26/18 11/26/19 History 10-325] Pantoprazole [Protonix] 40 mg PO DAILY 01/29/19 11/26/19 History Hydrocortisone [Cortef] 10 mg PO AC-LUNCH 08/30/19 11/26/19 History Brimonidine Tartrate [Alphagan P 1 drop RIGHT EYE BID 08/31/19 11/26/19 History 0.2% Ophth Soln] Acetaminophen [Tylenol Extra 1,000 mg PO DAILY PRN 09/12/19 11/26/19 History Strength] Magnesium Oxide [Mag-Ox] 400 mg PO BID #1 tab 09/16/19 11/26/19 Rx Insulin Aspart [NovoLOG Flexpen] 18 units SQ AC-LUNCH #0 09/24/19 11/26/19 Rx Insulin Aspart [NovoLOG Flexpen] 22 units SQ AC-SUPPER #0 09/24/19 11/26/19 Rx Insulin Aspart [NovoLOG Flexpen] 14 units SQ AC-BRKFST 10/28/19 11/26/19 History Metoclopramide [Reglan] 5 mg PO DAILY PRN 10/28/19 11/26/19 History Butalb/APAP/Caff 50-325-40Mg 1 tab PO Q4H PRN #18 tablet 10/30/19 11/26/19 Rx [Fioricet 50-325-40] Ondansetron HCl [Zofran] 4 mg PO Q8H PRN #30 tab 10/30/19 11/26/19 Rx Insulin Glargine,Hum.rec.anlog 26 unit SQ HS 11/08/19 11/26/19 History [Lantus Solostar] Prochlorperazine [Compazine] 5 mg PO TID 11/08/19 11/26/19 History Venlafaxine HCl [Effexor XR] 75 mg PO DAILY 11/08/19 11/26/19 History Clopidogrel [Plavix] 75 mg PO DAILY #30 tab 11/16/19 11/26/19 Rx Spironolactone [Aldactone] 50 mg PO DAILY #30 tab 11/16/19 11/26/19 Rx Allergies Allergy/AdvReac Type Severity Reaction Status Date / Time butorphanol tartrate Allergy BLISTERS Verified 11/26/19 20:50 [From Stadol] IN MOUTH ceftriaxone [From Rocephin] Allergy Unknown Verified 11/26/19 20:50 clarithromycin [From Biaxin] Allergy Rash/Hives Verified 11/26/19 20:50 codeine Allergy Rash/Hives Verified 11/26/19 20:50 ergotamine tartrate Allergy Unknown Verified 11/26/19 20:50 [From Cafergot] erythromycin base Allergy RASH, GI Verified 11/26/19 20:50 [From E-Mycin] SYMPTOMS ketorolac tromethamine Allergy Rash/Hives Verified 11/26/19 20:50 [From Toradol] liraglutide [From Victoza] Allergy Rash/Hives Verified 11/26/19 20:50 morphine Allergy Rash/Hives Verified 11/26/19 20:50 Penicillins Allergy Rash/Hives Verified 11/26/19 20:50 pentazocine lactate Allergy SEVERE Verified 11/26/19 20:50 [From Talwin] BLISTERS IN MOUTH pregabalin [From Lyrica] Allergy Rash/Hives Verified 11/26/19 20:50 propoxyphene HCl Allergy Rash/Hives Verified 11/26/19 20:50 [From Darvon] Sulfa (Sulfonamide Allergy Rash/Hives Verified 11/26/19 20:50 Antibiotics) tramadol Allergy Unknown Verified 11/26/19 20:50 monosodium glutamate [MSG] AdvReac Nausea & Verified 11/26/19 20:50 Vomiting nalbuphine HCl [From Nubain] AdvReac Nausea & Verified 11/26/19 20:50 Vomiting Physical Exam Vitals: Vital Signs Temp Pulse Resp BP Pulse Ox 11/28/19 07:00 70 19 142/74 91 L 11/27/19 22:40 71 18 11/27/19 21:13 98.7 F 91 18 165/72 97 11/27/19 16:44 98.4 F 94 18 138/86 99 Intake and Output 11/28/19 11/28/19 11/28/19 06:59 14:59 22:59 Intake Total 180 Balance 180 Intake: Oral 180 Other: Voiding Method Toilet # Voids 2 1 # Bowel Movements 1 Weight 64.864 kg GENERAL DESCRIPTION: Elderly female lying in bed, no distress. No tachypnea or accessory muscle of respiration use. HEENT: Shows Pallor , no scleral icterus. Oral mucous membrane is dry. NECK: Trachea central, no thyromegaly. LUNGS: Unlabored breathing. Clear to auscultation anteriorly. No wheeze or crackle. HEART: S1, S2, regular rate and rhythm. ABDOMEN: Soft, no tenderness , guarding or rigidity EXTREMITIES: No edema of feet. SKIN: No rash, no masses palpable. NEUROLOGICAL: The patient is awake, alert, oriented x3, mood and affect normal. Results CBC & Chem 7: 11/27/19 05:55 11/27/19 05:55 Labs: Abnormal Lab Results - Last 24 Hours (Table) 11/27/19 11/27/19 11/28/19 Range/Units 16:53 20:03 06:24 POC Glucose (mg/dL) 221 H 172 H 111 H (75-99) mg/dL Microbiology - Last 24 Hours (Table) 11/26/19 18:30 Blood Culture - Preliminary Blood No Growth after 24 hours 11/26/19 17:00 Urine Culture - Final Urine,Voided Assessment and Plan Assessment: 1-Patient presented hospital with dysuria right flank pain in this patient who did have a fever elevated white count and a positive UA likely symptomatic urinary tract infection with concern for possible pyelonephritis/complicated UTI in this patient did have evidence of nonobstructive bilateral renal calculi may be responsible for persistent of infection and recurrent UTIs. 2-patient with multiple antibiotic allergies that would limit the number of antibiotics safe to use (1) UTI (urinary tract infection) Current Visit: Yes Status: Acute Code(s): N39.0 - URINARY TRACT INFECTION, SITE NOT SPECIFIED SNOMED Code(s): 39154279 Plan: 1-We will start the patient on Invanz 1 g daily 2-patient benefit from midline and continuation of IV Invanz outpatient setting for this total of 2 weeks in view of recurrent UTIs We will follow on clinical condition and cultures to further adjust medication if needed Thank you for this consultation we will follow the patient along with you Time with Patient: Greater than 30
[2019-11-29] MEDS: HYDROmorphone 0.5 MG/0.5 ML SYRINGE IVP PRN ×6 (00:02→23:07)
[2019-11-29 07:30] LABS: Glucose,Whole Blood 147 mg/dL (75-99)
[2019-11-29] MEDS: INSULIN ASPART (NovoLOG) 100 UNIT/ML VIAL SQ SCH ×7 (08:25→20:25)
[2019-11-29] MEDS: CHOLECALCIFEROL 1,000 UNIT TAB PO SCH (08:27)
[2019-11-29] MEDS: FOLIC ACID 1 MG TAB PO SCH (08:27)
[2019-11-29] MEDS: CLOPIDOGREL 75 MG TAB PO SCH (08:27)
[2019-11-29] MEDS: POTASSIUM CHLORIDE ER 10 MEQ TAB.ER.PRT PO SCH (08:27)
[2019-11-29] MEDS: ASPIRIN 81 MG PO SCH (08:27)
[2019-11-29] MEDS: SPIRONOLACTONE 25 MG TAB PO SCH ×2 (08:27→20:23)
[2019-11-29] MEDS: THIAMINE 100 MG TAB PO SCH (08:27)
[2019-11-29] MEDS: LISINOPRIL 5 MG TAB PO SCH (08:27)
[2019-11-29] MEDS: FERROUS SULFATE 325 MG TAB PO SCH (08:28)
[2019-11-29] MEDS: HYDROcodone/APAP 10-325MG 1 EACH TAB PO SCH ×3 (08:28→21:04)
[2019-11-29] MEDS: MAGNESIUM OXIDE 400 MG TAB PO SCH ×2 (08:28→20:24)
[2019-11-29] MEDS: PANTOPRAZOLE 40 MG TABLET PO SCH (08:28)
[2019-11-29] MEDS: BRIMONIDINE TARTRATE 0.2% DROPS 5 ML BTL RIGHT EYE SCH ×2 (08:29→20:24)
[2019-11-29 08:34] LABS: African American GFR (CKD) >90 (>60 ml/min/1.73 sqM); Anion Gap 5 mmol/L; Blood Urea Nitrogen 15 mg/dL (7-17); Calcium 8.6 mg/dL (8.4-10.2); Carbon Dioxide 28 mmol/L (22-30); Chloride 104 mmol/L (98-107); Glucose 126 mg/dL (74-99); Magnesium 1.9 mg/dL (1.6-2.3); Non-African American GFR(CKD) >90 (>60 ml/min/1.73 sqM); Potassium 4.6 mmol/L (3.5-5.1); Sodium 137 mmol/L (137-145)
[2019-11-29] MEDS: VENLAFAXINE HCL ER 75 MG CAP PO SCH (08:35)
[2019-11-29] MEDS: PROCHLORPERAZINE 5 MG TAB PO SCH ×3 (08:35→21:55)
[2019-11-29] MEDS: LACTOBACILLUS ACIDOPH & BULGAR 1 EACH PACKET PO SCH ×2 (08:36→20:25)
[2019-11-29] MEDS: HYDROCORTISONE 10 MG TAB PO SCH ×2 (08:36→13:17)
[2019-11-29 08:43] LABS: Basophils % (A) 0 %; Eosinophils # (A) 0.1 k/uL (0-0.7); Eosinophils % (A) 2 %; HCT 38.9 % (34.0-46.0); HGB 12.6 gm/dL (11.4-16.0); Hypochromasia Slight; Lymphocytes # (A) 1.2 k/uL (1.0-4.8); Lymphocytes % (A) 23 %; MCH 30.8 pg (25.0-35.0); MCHC 32.3 g/dL (31.0-37.0); MCV 95.4 fL (80.0-100.0); Monocytes # (A) 0.4 k/uL (0-1.0); Monocytes % (A) 7 %; Neutrophils # (A) 3.5 k/uL (1.3-7.7); Neutrophils % (A) 66 %; Platelet Count 198 k/uL (150-450); RBC 4.08 m/uL (3.80-5.40); RDW 14.4 % (11.5-15.5); WBC 5.2 k/uL (3.8-10.6)
[2019-11-29] MEDS: SODIUM CHLORIDE 0.9% 1,000 ML IV SCH (09:37)
[2019-11-29 11:39] LABS: Glucose,Whole Blood 65 mg/dL (75-99)
[2019-11-29 11:51] LABS: Glucose,Whole Blood 80 mg/dL (75-99)
--- NOTE | 2019-11-29 12:38 | P.PN ---
Subjective Progress Note Date: 11/29/19 Melissa Pena is a 69 yo F with hx chronic migraine, recent ESBL E coli UTI treated here with invanz, discharged approx 2 weeks ago who presented to the ED complaining of weakness, malaise, poor appetite and dysuria. She states she was doing well at home and completed her course of antibiotics but over the past 3-4 days began to feel increasingly weak and lost her appetite. She denies fever or vomiting but endorses nausea and states she has not been able to eat as much. She also complains of some low back pain after a fall at home where she lost her balance and fell backward a few days ago. In the ED her vitals were stable, WBC 13.6k, UA with large LE, positive ketones, neg nitrite. CT abd/pelvis [place]. [id number] maintained on Invanz, urine culture reporting ronal, no ESBL. Afebrile. Minimal diet intake, no nausea or vomiting. Denies abdominal pain. Reporting diarrhea started last night with 5 episodes this morning. Discussed discharging home. Patient reports she is frustrated with not feeling well, frequent hospitalizations and her generalized weakness. Reports she is not ready for discharge, difficulty with balance, ambulating. Denies chest pain, palpitations or shortness of breath. 11/29/2019 no overnight events. stool for C. difficile not yet collected, last night mixed with urine, none this morning as per RN. Complains of ongoing generalized weakness.Neurology consult in place with recommendations noted. Maintained on Invanz. Evaluated by infectious disease with recommendations noted. Scheduled for mid line placement, secondary to concerns of possible pyelonephritis in a patient with nonobstructive bilateral renal calculi, complicated UTIs. Afebrile, T-max 99.2. Normal WBC. Denies chest pain, palpitations or shortness of breath. Objective - Vital Signs Vital signs: Vital Signs Temp 98.8 F 11/28/19 23:00 Pulse 64 11/29/19 00:00 Resp 18 11/29/19 00:00 BP 168/80 11/28/19 23:00 Pulse Ox 92 L 11/28/19 23:00 Intake & Output 11/28/19 11/29/19 11/29/19 18:59 06:59 18:59 Intake Total 400 Balance 400 Weight 64.864 kg Intake: Intake, IV Titration 400 Amount Ertapenem 1 gm In Sodium 100 Chloride 0.9% 50 ml @ 100 mls/hr IVPB Q24H [facility] Rx# :[id number] Sodium Chloride 0.9% 1, 300 000 ml @ 50 mls/hr IV . Q20H [facility] Rx#:[id number] Other: Voiding Method Toilet Toilet Toilet Incontinent # Voids 1 1 # Bowel Movements 1 1 - Exam General: well nourished, well developed, NAD. Eyes: PERRL, EOMI, conjunctiva normal HENT: normocephalic, mucus membranes moist Neck: supple, no JVD Lungs: normal respiratory effort, no rhonchi, wheezes or rales CV: Regular rate and rhythm, no murmur. Peripheral pulses 2+ Abdomen: soft, nondistended, no organomegaly, positive bowel sounds Skin: warm and dry. Neuro: A&Ox3, normal mood and affect - Labs CBC & Chem 7: 11/29/19 06:53 11/29/19 06:53 Labs: Abnormal Lab Results - Last 24 Hours (Table) 11/28/19 11/28/19 11/29/19 Range/Units 16:46 21:29 06:53 Creatinine 0.51 L (0.52-1.04) mg/dL Glucose 126 H (74-99) mg/dL POC Glucose (mg/dL) 231 H 192 H (75-99) mg/dL 11/29/19 Range/Units 07:28 Creatinine (0.52-1.04) mg/dL Glucose (74-99) mg/dL POC Glucose (mg/dL) 147 H (75-99) mg/dL Microbiology - Last 24 Hours (Table) 11/26/19 18:30 Blood Culture - Preliminary Blood No Growth after 48 hours Assessment and Plan Assessment: (1) acute UTI with possible pyelonephritis History of ESBL E. coli infection Current Visit: Yes Status: Acute Code(s): Z86.19 - PERSONAL HISTORY OF OTHER INFECTIOUS AND PARASITIC DISEASES SNOMED Code(s): 605504533 (2) Acute cystitis Current Visit: No Status: Acute Code(s): N30.00 - ACUTE CYSTITIS WITHOUT HEMATURIA SNOMED Code(s): 38621575 (3) Adrenal insufficiency Current Visit: No Status: Acute Code(s): E27.40 - UNSPECIFIED ADRENOCORTICAL INSUFFICIENCY SNOMED Code(s): 381507369 (4) At risk for readmission to hospital Current Visit: No Status: Acute Code(s): Z91.89 - OTH PERSONAL RISK FACTORS, NOT ELSEWHERE CLASSIFIED SNOMED Code(s): 3618631963167 (5) CAD (coronary artery disease) Current Visit: No Status: Acute Code(s): I25.10 - ATHSCL HEART DISEASE OF [place] CORONARY ARTERY W/O ANG PCTRS SNOMED Code(s): 10143943 (6) Hyponatremia Current Visit: No Status: Acute Code(s): E87.1 - HYPO-OSMOLALITY AND HYPONATREMIA SNOMED Code(s): 62251706 (7) DM type 2 (diabetes mellitus, type 2) Current Visit: No Status: Chronic Code(s): E11.9 - TYPE 2 DIABETES MELLITUS WITHOUT COMPLICATIONS SNOMED Code(s): 67396323 Plan: Continue current medication regime ,monitoring and symptomatic treatment. Maintain Invanz. Stress dose Cortef. Midline placement pending, outpatient antibiotics as per ID. Case management to assist with outpatient antibiotics- notified. Patient complaining of significant diarrhea, Stool culture not yet collected. Complains of ongoing weakness, suspect infection related/UTI. Neur ology consult in place, recommendations pending. PT. Prognosis guarded given multiple complex medical issues. Discharge planning in progress for tomorrow. The impression and plan of care has been dictated as directed. : I performed a history and examination of this patient, discussed the same with the dictator. I agree with the dictator's note ,documented as a scribe. Any additional findings or plans will be noted.
--- NOTE | 2019-11-29 15:44 | PN ---
PROGRESS NOTE DATE OF SERVICE: 11/29/2019 REASON FOR FOLLOWUP: Urinary tract infection with a history of recurrent UTI. INTERVAL HISTORY: The patient is currently afebrile. The patient is breathing comfortably, feeling better today. Denies having any chest pain or shortness of breath or cough. No further nausea or vomiting, and diarrhea has slowed down. PHYSICAL EXAMINATION: Blood pressure 158/80 with a pulse of 64, temperature 98.8. She is 92% on room air. General description is an elderly female lying in bed in no distress. RESPIRATORY SYSTEM: Unlabored breathing. Clear to auscultation anteriorly. HEART: S1, S2. Regular rate and rhythm. ABDOMEN: Soft. No tenderness. LABS: Hemoglobin is 12.6, white count 5.2, BUN of 17, creatinine 0.51. DIAGNOSTIC IMPRESSION AND PLAN: Patient with a recurrent urinary tract infection positive for ESBL E coli. Patient now presenting back to the hospital with nausea, vomiting, urinary symptoms of burning, frequency, fever and elevated white count with concern for likely a deep infection. We will keep the patient on Invanz 1 gram daily clinical response for a total of 2 weeks. Mid line requested. Prescription provided to the RN. Once antibiotic is arranged, she will be able to go home from ID standpoint. MMODL / IJN: [id number] /
--- NOTE | 2019-11-29 16:38 | CONS ---
CONSULTATION DATE OF DICTATION: 11/29/2019 HISTORY OF PRESENT ILLNESS: Thank you for allowing me to evaluate Melissa Pena, who is a 69-year-old right-handed white female who presented to [facility] on 11/26/2019 for evaluation of feeling shaky, clammy and generalized weakness. The patient states these are the "same symptoms" she was experiencing one and a half weeks ago when she was admitted to [facility]. Despite these symptoms, the patient states she did not fall or lose consciousness. She has had no associated diplopia, vertigo, difficulty chewing/swallowing or focal weakness/numbness in the extremities. She denies previous history of stroke or seizure. On an outpatient basis the patient is maintained on Plavix and aspirin 81 mg daily. Due to flank discomfort, the patient had a CT scan of the abdomen and pelvis during this hospitalization, which demonstrated bilateral non- obstructing renal calculi. The patient states that a week and a half ago she presented with generalized weakness and shakiness and was diagnosed with a urinary tract infection (ESBL). She states that by the time she was discharged home, she was doing better and walking had improved. She was discharged with plan for home physical therapy, which was coming in 2 times per week. The patient states that she has ambulated "on and off" with a four-wheel walker over the past 2-3 years, but more consistently over the past month. The patient has a medical history notable for adrenal insufficiency and follows with an repairer welding equipment on an outpatient basis. She is maintained on Solu-Cortef and states that when she becomes medically ill, her repairer welding equipment has recommended that her Cortef dose be adjusted appropriately, which she states they did do during the previous hospitalization. She believes the adjustment in the Cortef dose did assist in her improvement. The patient is well known to the neurology service, and this represents the fifth neurologic consultation the patient has had since 09/02/2019, with consultants including Dr. Ball, Dr. Carvajal and Dr. Ramos. The patient also follows with Dr. Barry of Neurology on an outpatient basis. Three of the four prior consultations were for intractable headache. Dr. Ball's notes indicate the patient had been requesting Dilaudid during his consultations. She has previously used Neurontin for headache prophylaxis and more recently tried Aimovig, without benefit. She apparently had side effects with Topamax. On 11/09/2019, when the patient presented with weakness and a fall at home, she was evaluated by Dr. 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 Dr. Lai of Vascular Surgery was consulted and recommended no intervention and to continue anti- platelet medications and risk factor modification. The patient's last MRI of the brain completed on 09/19/2019 with and without contrast demonstrated an old right basal ganglia lacunar infarction and moderate white matter ischemic changes which were unchanged compared to a previous MRI from 02/06/2017. No abnormal enhancement or acute infarcts were noted on that study. ALLERGIES: STADOL, ROCEPHIN, BIAXIN, CODEINE, CAFERGOT, ERYTHROMYCIN, TORADOL, VICTOZA, MORPHINE, PENICILLIN, TALWIN, LYRICA, DARVON, SULFA, TRAMADOL, MSG AND NUBAIN. HOME MEDICATIONS: Zofran p.r.n., Reglan p.r.n., Antivert p.r.n., B complex, Effexor XR 75 mg daily, thiamine, Aldactone, Compazine, potassium, Protonix, multivitamin, Toprol-XL, melatonin, Mag-Ox, Zestril, probiotic, NovoLog, Lantus, Cortef, [place], folic acid, ferrous sulfate, Plavix 75 mg daily, cholecalciferol, Fioricet, Alphagan, Lipitor, aspirin 81 mg daily and acetaminophen. PAST MEDICAL HISTORY: Chronic headaches, bilateral occipital neuralgia, hypertension, diabetes mellitus x6 years, diabetic peripheral neuropathy, COPD, DVT, fibromyalgia, hyperlipidemia, osteoarthritis, obstructive sleep apnea, recurrent UTIs, renal calculi, adrenal insufficiency and arthritis. PAST SURGICAL HISTORY: Partial right fourth toe amputation, appendectomy, lumbar laminectomy x1 in 2011, cholecystectomy, hysterectomy, tonsillectomy, bladder suspension, bilateral bunionectomy, partial parathyroidectomy, lithotripsy, bilateral cataract extraction and bilateral breast reduction. SOCIAL HISTORY: Patient denies tobacco, alcohol or drug use. She is with 2 children and lives in a house with her . She has been ambulating with a four-wheel walker intermittently over the past 2-3 years but more consistently over the past month. FAMILY HISTORY: Patient's parents are . Mother had congestive heart failure, ovarian cancer and dementia. Father had heart disease, stroke, diabetes mellitus with associated peripheral neuropathy and hypertension. REVIEW OF SYSTEMS: Fourteen systems are reviewed, and no additional points are identified other than in the review of systems documented in the history and physical. PHYSICAL EXAMINATION: Upon my arrival in the patient's room in the observation unit, she was lying in bed, receptive to the examiner. Affect is normal. She is an accurate historian. She appears deconditioned and older than stated age. She has exophthalmos. The patient is clammy, moist to touch, and there is visible sweat over her forehead. In addition, the patient states the back of her head and back are wet on the bed sheets. VITAL SIGNS: Blood pressure 168/80 with a pulse of 64, respiratory rate 18, temperature 98.5. Weight is 68.8 kg on a 5-foot 0-inch frame. SKIN AND EXTREMITIES: Arthritic change are noted in the hands and feet. There is partial amputation of the right fourth toe. The patient is wearing a large amount of jewelry. HEAD AND NECK: There is visible sweat over the patient's forehead. Neck is supple without meningeal signs. There are no signs of trauma. Arteries are nontender and without bruits. HEART: Regular rate and rhythm. HIGHER CORTICAL FUNCTION MENTAL STATUS: Patient was alert and oriented to self. She knew she was at "[facility]" in [place]. She referred to this facility as her "second home." She knew the year, month, day of the week and could name the current president. She was able to name, repeat and read. There was no right and left disorientation, finger agnosia, extinction to double simultaneous stimulation or dysarthria. CRANIAL NERVES II THROUGH XII: II: Pupils are post-surgical and reactive to light symmetrically. No afferent pupillary defect. Visual hinds are intact to confrontation. III, IV, : No ptosis. Extraocular movements are full. No nystagmus. V: Pinprick and light touch intact in all 3 divisions. Motor V intact. VII: No facial asymmetry or weakness. Acuity intact to finger rub. IX, X: Palate mounika in the midline. XI: Trapezius strength intact. XII: Tongue protruded midline without fasciculation or atrophy. MOTOR EXAMINATION: There was no pronator drift. There was reduced bulk in the hand intrinsic muscles with normal tone, and no involuntary movements were noted. Strength is 5/5 throughout except at the interossei, which are 4/5 bilaterally. Sensory: Patient reports a gradient to pinprick at the mid calf level in the distal lower extremities. The remainder of the upper and lower extremities was symmetric. Vibratory sensation is reduced in the great toe. Position sense is intact. Reflexes (right side listed first): biceps 2,2, brachioradialis 1,1, triceps 2,2, patellae 1,1, and ankle 0,0. Plantar response is flexor bilaterally. Elizondo's is absent. COORDINATION: [id number]-hg-[id number], rjdp-jh-attn movements are intact. Rapid alternating movements are symmetric with finger tapping. DIAGNOSTIC TESTING: Patient's lab work demonstrates a white blood cell count of 13.6 on presentation. It is currently 5.2. Hemoglobin 15.5, platelet count 271. The patient did have a temperature on presentation of 100.3. Sodium 136, potassium 4.8, BUN 21 with creatinine of 0.56 on presentation. Current BUN and creatinine are 15 and 0.51. Calcium 10.0, magnesium 1.9. ALT 16, AST 23. Troponin negative. Urinalysis revealed 2+ ketones, 4+ glucose, large leukocyte esterase, 109 WBCs and 48 RBCs. Coronavirus negative. Blood culture has demonstrated no growth. IMPRESSION: 1. Generalized weakness, shakiness and diaphoresis, likely secondary to urinary tract infection, dehydration with prerenal azotemia/ketonuria on presentation, and a potential component related to the issues discussed in #2. 2. Adrenal insufficiency, the patient follows with Endocrinology on an outpatient basis and is maintained on Cortef. She states that she typically has an adjustment in her Cortef dose when she is medically ill. The patient is noted to be quite diaphoretic while lying in bed during my examination. 3. Chronic headaches with history of bilateral occipital neuralgia, followed by Dr. Barry on an outpatient basis. 4. Bilateral vertebral stenosis on recent CTA. Vascular Surgery evaluated the patient and recommended no intervention. 5. Known 2 mm right ICA terminus aneurysm; deferred to the patient's outpatient neurologist. 6. Non-obstructing renal calculi. 7. Diabetic peripheral neuropathy. 8. Polypharmacy with history of MULTIPLE DRUG ALLERGIES. 9. Medical problems, including chronic obstructive pulmonary disease, deep venous thrombosis, fibromyalgia, hyperlipidemia, osteoarthritis, obstructive sleep apnea, recurrent urinary tract infections and osteoarthritis. RECOMMENDATIONS: 1. I discussed my impression and plan with the patient and she expressed understanding. 2. Treatment of urinary tract infection/hydration per primary service. 3. Will obtain a STAT cortisol level and recommend adjustment of Cortef dose if felt clinically indicated per primary service. 4. Increase activity as tolerated. 5. I reassured the patient that her neurologic examination appears well maintained. 6. Serial orthostatic blood pressures with pulse. 7. This is my last day on the neurology service. Please refer to the schedule for neurology coverage. Thank you for the opportunity to participate in the care of your patient. DANIKAL / IJN: [id number] / MTDTara
[2019-11-29 17:46] LABS: Glucose,Whole Blood 216 mg/dL (75-99)
[2019-11-29 20:22] LABS: Glucose,Whole Blood 233 mg/dL (75-99)
[2019-11-29] MEDS: ATORVASTATIN 40 MG TAB PO SCH (20:24)
[2019-11-29] MEDS: METOPROLOL SUCCINATE (ER) 50 MG TAB.ER.24H PO SCH (20:24)
[2019-11-29] MEDS: INSULIN DETEMIR (LEVEMIR) 100 UNIT/ML SYR SQ SCH (20:25)
[2019-11-29] MEDS ORDERED: HYDROCORTISONE 10 MG TAB PO SCH (21:00)
[2019-11-29] MEDS: ERTAPENEM 1 GM in SODIUM CHLORIDE 0.9% 50 ML IVPB SCH (21:03)
[2019-11-29 23:41] VITALS: RESP 16
[2019-11-30] MEDS: HYDROmorphone 0.5 MG/0.5 ML SYRINGE IVP PRN ×3 (03:06→11:23)
[2019-11-30] MEDS: SODIUM CHLORIDE 0.9% 1,000 ML IV SCH (04:41)
[2019-11-30 06:11] LABS: Basophils % (A) 1 %; Eosinophils # (A) 0.1 k/uL (0-0.7); Eosinophils % (A) 2 %; HCT 38.9 % (34.0-46.0); HGB 12.4 gm/dL (11.4-16.0); Lymphocytes # (A) 1.5 k/uL (1.0-4.8); Lymphocytes % (A) 24 %; MCH 29.9 pg (25.0-35.0); MCV 93.4 fL (80.0-100.0); Mean Platelet Volume 8.2; Monocytes # (A) 0.5 k/uL (0-1.0); Monocytes % (A) 8 %; Neutrophils # (A) 3.8 k/uL (1.3-7.7); Neutrophils % (A) 63 %; Platelet Count 194 k/uL (150-450); RBC 4.17 m/uL (3.80-5.40); RDW 14.4 % (11.5-15.5); WBC 6.1 k/uL (3.8-10.6)
[2019-11-30] MEDS: CHOLECALCIFEROL 1,000 UNIT TAB PO SCH (06:45)
[2019-11-30 06:46] LABS: African American GFR (CKD) >90 (>60 ml/min/1.73 sqM); Anion Gap 5 mmol/L; Blood Urea Nitrogen 14 mg/dL (7-17); Calcium 8.9 mg/dL (8.4-10.2); Carbon Dioxide 28 mmol/L (22-30); Chloride 102 mmol/L (98-107); Glucose 125 mg/dL (74-99); Non-African American GFR(CKD) >90 (>60 ml/min/1.73 sqM); Potassium 4.7 mmol/L (3.5-5.1); Sodium 135 mmol/L (137-145)
[2019-11-30 06:57] LABS: Glucose,Whole Blood 120 mg/dL (75-99)
[2019-11-30] MEDS ORDERED: HYDROCORTISONE 10 MG TAB PO SCH (07:30)
[2019-11-30] MEDS: INSULIN ASPART (NovoLOG) 100 UNIT/ML VIAL SQ SCH ×4 (08:48→12:42)
[2019-11-30] MEDS: SPIRONOLACTONE 25 MG TAB PO SCH (09:03)
[2019-11-30] MEDS: LISINOPRIL 5 MG TAB PO SCH (09:03)
[2019-11-30] MEDS: BRIMONIDINE TARTRATE 0.2% DROPS 5 ML BTL RIGHT EYE SCH (09:03)
[2019-11-30] MEDS: POTASSIUM CHLORIDE ER 10 MEQ TAB.ER.PRT PO SCH (09:03)
[2019-11-30] MEDS: ASPIRIN 81 MG PO SCH (09:04)
[2019-11-30] MEDS: MAGNESIUM OXIDE 400 MG TAB PO SCH (09:04)
[2019-11-30] MEDS: PROCHLORPERAZINE 5 MG TAB PO SCH (09:04)
[2019-11-30] MEDS: FOLIC ACID 1 MG TAB PO SCH (09:04)
[2019-11-30] MEDS: PANTOPRAZOLE 40 MG TABLET PO SCH (09:04)
[2019-11-30] MEDS: CLOPIDOGREL 75 MG TAB PO SCH (09:05)
[2019-11-30] MEDS: VENLAFAXINE HCL ER 75 MG CAP PO SCH (09:05)
[2019-11-30] MEDS: FERROUS SULFATE 325 MG TAB PO SCH (09:05)
[2019-11-30] MEDS: THIAMINE 100 MG TAB PO SCH (09:05)
[2019-11-30] MEDS: HYDROcodone/APAP 10-325MG 1 EACH TAB PO SCH (09:05)
[2019-11-30] MEDS: LACTOBACILLUS ACIDOPH & BULGAR 1 EACH PACKET PO SCH (10:52)
[2019-11-30 12:33] LABS: Glucose,Whole Blood 181 mg/dL (75-99)
[2019-11-30] MEDS: HYDROCORTISONE 10 MG TAB PO SCH (12:40)
--- NOTE | 2019-11-30 14:46 | P.DS ---
Providers Date of admission: 11/28/19 09:35 Expected date of discharge: 11/30/19 Attending physician: Andrew Gonsales MD Consults: 11/28/19 10:53 Consult Physician Routine Consulting Provider: Chalino Osman Consult Reason/Comments: uti Do you want consulting provider notified?: Yes 11/28/19 10:54 Consult Physician Routine Consulting Provider: Segundo Mayers Consult Reason/Comments: weakness Do you want consulting provider notified?: Yes Primary care physician: Andrew Gonsales MD Hospital Course: 69 yo F with hx chronic migraine, recent ESBL E coli UTI treated here with invanz, discharged approx 2 weeks ago who presented to the ED complaining of weakness, malaise, poor appetite and dysuria. She states she was doing well at home and completed her course of antibiotics but over the past 3-4 days began to feel increasingly weak and lost her appetite. She denies fever or vomiting but endorses nausea and states she has not been able to eat as much. She also complains of some low back pain after a fall at home where she lost her balance and fell backward a few days ago. In the ED her vitals were stable, WBC 13.6k, UA with large LE, positive ketones, neg nitrite. CT abd/pelvis negative. 11/28/19 maintained on Invanz, urine culture reporting ronal, no ESBL. Afebrile. Minimal diet intake, no nausea or vomiting. Denies abdominal pain. Reporting diarrhea started last night with 5 episodes this morning. Discussed discharging home. Patient reports she is frustrated with not feeling well, frequent hospitalizations and her generalized weakness. Reports she is not ready for discharge, difficulty with balance, ambulating. Denies chest pain, palpitations or shortness of breath. 11/29/2019 no overnight events. stool for C. difficile not yet collected, last night mixed with urine, none this morning as per RN. Complains of ongoing generalized weakness.Neurology consult in place with recommendations noted. Maintained on Invanz. Evaluated by infectious disease with recommendations noted. Scheduled for mid line placement, secondary to concerns of possible pyelonephritis in a patient with nonobstructive bilateral renal calculi, complicated UTIs. Afebrile, T-max 99.2. Normal WBC. Denies chest pain, palpitations or shortness of breath. 11/30/2019 Patient has been cleared for discharge by ID; has been evaluated by neurology and no further workup was recommended; ID recommending to continue with IV antibiotics for 2 weeks for recurrent UTIs; we will discharge patient home with recommendations to follow-up with ID and PCP - Exam General: well nourished, well developed, NAD. Eyes: PERRL, EOMI, conjunctiva normal HENT: normocephalic, mucus membranes moist Neck: supple, no JVD Lungs: normal respiratory effort, no rhonchi, wheezes or rales CV: Regular rate and rhythm, no murmur. Peripheral pulses 2+ Abdomen: soft, nondistended, no organomegaly, positive bowel sounds Skin: warm and dry. Neuro: A&Ox3, normal mood and affect Patient Condition at Discharge: Serious Plan - Discharge Summary Discharge Rx Participant: No New Discharge Prescriptions: New Ertapenem [INVanz] 1 gm IVPB Q24H #14 vial Continue Cholecalciferol [Vitamin D3 (25 Mcg = 1000 Iu)] 3,000 unit PO DAILY@0700 Metoprolol Succinate (ER) [Toprol XL] 50 mg PO HS Meclizine [Antivert] 25 mg PO TID PRN PRN Reason: Vertigo Hydrocortisone [Cortef] 15 mg PO AC-BRKFST Hydrocortisone [Cortef] 5 mg PO HS Aspirin 81 mg PO DAILY #0 Glucagon Emergency Kit 1 mg IM ONCE PRN PRN Reason: Hypoglycemia Ferrous Sulfate [Iron (65 MG Elemental)] 325 mg PO DAILY Vitamin B-Complex Drops 1 drop PO BID Thiamine [Vitamin B-1] 100 mg PO DAILY Folic Acid 0.4 mg PO DAILY Multivitamins, Thera Liquid [Theragran Liquid (formulary)] 30 ml PO DAILY L.acidoph,Paracasei, B.lactis [Probiotic] 2 cap PO BID Melatonin 5 mg PO HS PRN PRN Reason: Insomnia Cranberry 300mg 300 mg PO BID Potassium 99 mg PO DAILY Lisinopril [Zestril] 15 mg PO DAILY Atorvastatin [Lipitor] 40 mg PO HS #30 tab HYDROcodone/APAP 10-325MG [Hawkins 10-325] 1 tab PO TID PRN PRN Reason: Pain Pantoprazole [Protonix] 40 mg PO DAILY Hydrocortisone [Cortef] 10 mg PO AC-LUNCH Brimonidine Tartrate [Alphagan P 0.2% Ophth Soln] 1 drop RIGHT EYE BID Acetaminophen [Tylenol Extra Strength] 1,000 mg PO DAILY PRN PRN Reason: Migraine Headache Magnesium Oxide [Mag-Ox] 400 mg PO BID #1 tab Insulin Aspart [NovoLOG Flexpen] 18 units SQ AC-LUNCH #0 Insulin Aspart [NovoLOG Flexpen] 22 units SQ AC-SUPPER #0 Insulin Aspart [NovoLOG Flexpen] 14 units SQ AC-BRKFST Metoclopramide [Reglan] 5 mg PO DAILY PRN PRN Reason: migraine headaches Ondansetron HCl [Zofran] 4 mg PO Q8H PRN #30 tab PRN Reason: Nausea And Vomiting Butalb/APAP/Caff 50-325-40Mg [Fioricet 50-325-40] 1 tab PO Q4H PRN #18 tablet PRN Reason: Headache Insulin Glargine,Hum.rec.anlog [Lantus Solostar] 26 unit SQ HS Prochlorperazine [Compazine] 5 mg PO TID Venlafaxine HCl [Effexor XR] 75 mg PO DAILY Spironolactone [Aldactone] 50 mg PO DAILY #30 tab Clopidogrel [Plavix] 75 mg PO DAILY #30 tab Discharge Medication List Cholecalciferol [Vitamin D3 (25 Mcg = 1000 Iu)] 3,000 unit PO DAILY@0700 12/01/14 [History] Metoprolol Succinate (ER) [Toprol XL] 50 mg PO HS 07/06/17 [History] Meclizine [Antivert] 25 mg PO TID PRN 11/26/17 [History] Hydrocortisone [Cortef] 15 mg PO AC-BRKFST 05/18/18 [History] Hydrocortisone [Cortef] 5 mg PO HS 06/26/18 [History] Aspirin 81 mg PO DAILY #0 07/02/18 [Rx] Glucagon Emergency Kit 1 mg IM ONCE PRN 08/12/18 [History] Cranberry 300mg 300 mg PO BID 10/08/18 [History] Ferrous Sulfate [Iron (65 MG Elemental)] 325 mg PO DAILY 10/08/18 [History] Folic Acid 0.4 mg PO DAILY 10/08/18 [History] L.acidoph,Paracasei, B.lactis [Probiotic] 2 cap PO BID 10/08/18 [History] Melatonin 5 mg PO HS PRN 10/08/18 [History] Multivitamins, Thera Liquid [Theragran Liquid (formulary)] 30 ml PO DAILY 10/08/18 [History] Potassium 99 mg PO DAILY 10/08/18 [History] Thiamine [Vitamin B-1] 100 mg PO DAILY 10/08/18 [History] Vitamin B-Complex Drops 1 drop PO BID 10/08/18 [History] Lisinopril [Zestril] 15 mg PO DAILY 11/08/18 [History] Atorvastatin [Lipitor] 40 mg PO HS #30 tab 11/16/18 [Rx] HYDROcodone/APAP 10-325MG [Hawkins 10-325] 1 tab PO TID PRN 12/26/18 [History] Pantoprazole [Protonix] 40 mg PO DAILY 01/29/19 [History] Hydrocortisone [Cortef] 10 mg PO AC-LUNCH 08/30/19 [History] Brimonidine Tartrate [Alphagan P 0.2% Ophth Soln] 1 drop RIGHT EYE BID 08/31/19 [History] Acetaminophen [Tylenol Extra Strength] 1,000 mg PO DAILY PRN 09/12/19 [History] Magnesium Oxide [Mag-Ox] 400 mg PO BID #1 tab 09/16/19 [Rx] Insulin Aspart [NovoLOG Flexpen] 18 units SQ AC-LUNCH #0 09/24/19 [Rx] Insulin Aspart [NovoLOG Flexpen] 22 units SQ AC-SUPPER #0 09/24/19 [Rx] Insulin Aspart [NovoLOG Flexpen] 14 units SQ AC-BRKFST 10/28/19 [History] Metoclopramide [Reglan] 5 mg PO DAILY PRN 10/28/19 [History] Butalb/APAP/Caff 50-325-40Mg [Fioricet 50-325-40] 1 tab PO Q4H PRN #18 tablet 10/30/19 [Rx] Ondansetron HCl [Zofran] 4 mg PO Q8H PRN #30 tab 10/30/19 [Rx] Insulin Glargine,Hum.rec.anlog [Lantus Solostar] 26 unit SQ HS 11/08/19 [History] Prochlorperazine [Compazine] 5 mg PO TID 11/08/19 [History] Venlafaxine HCl [Effexor XR] 75 mg PO DAILY 11/08/19 [History] Clopidogrel [Plavix] 75 mg PO DAILY #30 tab 11/16/19 [Rx] Spironolactone [Aldactone] 50 mg PO DAILY #30 tab 11/16/19 [Rx] Ertapenem [INVanz] 1 gm IVPB Q24H #14 vial 11/30/19 [Rx] Follow up Appointment(s)/Referral(s): Andrew Gonsales MD [Primary Care Provider] - 1-2 days [facility], [NON-STAFF] - 1-2 Days [facility], [REFERRING] - As Needed
[2019-11-30] MEDS: ERTAPENEM 1 GM in SODIUM CHLORIDE 0.9% 50 ML IVPB SCH (15:28)
[2019-11-30 15:38] VITALS: BP 148/77; PULSE 66; TEMP 98.8
--- NOTE | 2019-12-03 08:06 | CDI ---
Documentation Clarification Form Date: 12/03/19 From: Yumiko Garibay Phone: If you have a question about this query, please contact Lissy Chawla Asset Recovery Specialist at [phone] between 8am and 5pm. Admit Date: 11/28/19 Discharge Date: 11/30/19 Patient Name: EMELY HERNANDEZ Visit Number: [id number] ATTENTION: The Clinical Documentation Specialists (CDI) and [facility] Coding Staff appreciate your assistance in clarifying documentation. Please respond to the clarification below the line at the bottom and electronically sign. The CDI & [facility] Coding staff will review the response and follow-up if needed. Please note: Queries are made part of the Legal Health Record. If you have any questions, please contact the author of this message via ITS. Dear Dr. Tessa Harris, Possible pyelonephritis is documented in the discharge summary. Please specify the acuity of this condition with terms such as: Acute Chronic Other (please specify in the medical record) Clinically unable to further specify Unknown Acute pyelonephritis MTDD
== END 2019-11-30 17:35 | disposition home health service (06) | DRG 690 ==
LOC: EC 15:21 → 1SOBS 21:28 → 4SSUR 22:18 → 1SOBS 11-27 16:34 → OBSVTOIN 11-28 09:35
PROVIDERS: ADMIT Family Medicine; ATTEND Family Medicine
PROC: 02HV33Z Insertion of Infusion Device into Superior Vena Cava, Percutaneous Approach (ICD-10-PCS; principal; 2019-11-29 16:55)
PROC: B548ZZA Ultrasonography of Superior Vena Cava, Guidance (ICD-10-PCS; principal; 2019-11-29 16:55)
DX: N10 Acute pyelonephritis (principal); N30.00 Acute cystitis without hematuria; E27.40 Unspecified adrenocortical insufficiency; E87.1 Hypo-osmolality and hyponatremia; I72.0 Aneurysm of carotid artery; E11.42 Type 2 diabetes mellitus with diabetic polyneuropathy; J44.9 Chronic obstructive pulmonary disease, unspecified; Z79.4 Long term (current) use of insulin; E21.3 Hyperparathyroidism, unspecified; Z89.421 Acquired absence of other right toe(s); E89.2 Postprocedural hypoparathyroidism; Z20.828 Contact with and (suspected) exposure to other viral communicable diseases; I65.03 Occlusion and stenosis of bilateral vertebral arteries; N20.0 Calculus of kidney; R40.2144 Coma scale, eyes open, spontaneous, 24 hours or more after hospital admission; R40.2364 Coma scale, best motor response, obeys commands, 24 hours or more after hospital admission; R40.2254 Coma scale, best verbal response, oriented, 24 hours or more after hospital admission; E86.0 Dehydration; I10 Essential (primary) hypertension; G47.33 Obstructive sleep apnea (adult) (pediatric); M54.5 Low back pain; E78.5 Hyperlipidemia, unspecified; M79.7 Fibromyalgia; G43.909 Migraine, unspecified, not intractable, without status migrainosus; M54.81 Occipital neuralgia; I83.90 Asymptomatic varicose veins of unspecified lower extremity; M75.101 Unspecified rotator cuff tear or rupture of right shoulder, not specified as traumatic; M19.90 Unspecified osteoarthritis, unspecified site; I25.10 Atherosclerotic heart disease of native coronary artery without angina pectoris; R19.7 Diarrhea, unspecified; R39.2 Extrarenal uremia; R53.81 Other malaise; E66.9 Obesity, unspecified; Z68.27 Body mass index [BMI] 27.0-27.9, adult; Z79.82 Long term (current) use of aspirin; Z79.02 Long term (current) use of antithrombotics/antiplatelets; Z79.52 Long term (current) use of systemic steroids; Z79.899 Other long term (current) drug therapy; Z71.3 Dietary counseling and surveillance; Z86.718 Personal history of other venous thrombosis and embolism; Z86.19 Personal history of other infectious and parasitic diseases; Z87.442 Personal history of urinary calculi; Z87.440 Personal history of urinary (tract) infections; Z87.01 Personal history of pneumonia (recurrent); Z86.14 Personal history of Methicillin resistant Staphylococcus aureus infection; Z98.890 Other specified postprocedural states; Z99.89 Dependence on other enabling machines and devices; Z90.49 Acquired absence of other specified parts of digestive tract; Z87.81 Personal history of (healed) traumatic fracture; Z90.89 Acquired absence of other organs; Z90.710 Acquired absence of both cervix and uterus; Z98.1 Arthrodesis status; Z86.73 Personal history of transient ischemic attack (TIA), and cerebral infarction without residual deficits; Z98.41 Cataract extraction status, right eye; Z98.42 Cataract extraction status, left eye; Z88.5 Allergy status to narcotic agent; Z88.0 Allergy status to penicillin; Z88.2 Allergy status to sulfonamides; Z88.8 Allergy status to other drugs, medicaments and biological substances; Z88.1 Allergy status to other antibiotic agents; Z91.02 Food additives allergy status; W01.0XXA Fall on same level from slipping, tripping and stumbling without subsequent striking against object, initial encounter; Y92.009 Unspecified place in unspecified non-institutional (private) residence as the place of occurrence of the external cause; Z82.49 Family history of ischemic heart disease and other diseases of the circulatory system; Z83.3 Family history of diabetes mellitus; Z82.3 Family history of stroke; Z80.49 Family history of malignant neoplasm of other genital organs; Z83.6 Family history of other diseases of the respiratory system; Z80.41 Family history of malignant neoplasm of ovary
CPT/HCPCS: 36410; 36415; 72100; 74176; 76937; 80048; 80053; 81001; 82533; 83605; 83735; 84484; 85025; 87040; 87086; 93005; 96361; 96365; 96375; 96376; 99285

== ENCOUNTER 2019-12-06 10:07 | Inpatient (IN) | payer MEDICARE, BC ==
[2019-12-06] MEDS ORDERED: SODIUM CHLORIDE 0.9% 500 ML 500 ML IV STA (10:13)
[2019-12-06] MEDS ORDERED: SODIUM CHLORIDE 0.9% 1,000 ML IV STA (10:13)
--- NOTE | 2019-12-06 10:17 | ED ---
Weakness HPI - General Stated complaint: UTI Time Seen by Provider: 12/06/19 10:07 Source: patient, RN notes reviewed, old records reviewed Mode of arrival: EMS Limitations: no limitations - History of Present Illness Initial comments: This is a 69-year-old female history of recent urinary tract infection who is getting IV antibiotics for home who states for the past 2 days she's had nausea vomiting diarrhea decreased oral intake and progressively worsening weakness. She denies any overt fevers chills or sweats. No chest pain she does say she has some right flank pain nonspecific in nature at this time. She does have a history kidney stones she states. She was brought in by EMS. Other complaints or modifying factors at this time MD Complaint: generalized weakness - Related Data Home Medications Medication Instructions Recorded Confirmed Cholecalciferol [Vitamin D3 (25 3,000 unit PO DAILY@0700 12/01/14 12/06/19 Mcg = 1000 Iu)] Metoprolol Succinate (ER) [Toprol 50 mg PO HS 07/06/17 12/06/19 XL] Meclizine [Antivert] 25 mg PO TID PRN 11/26/17 12/06/19 Hydrocortisone [Cortef] 15 mg PO AC-BRKFST 05/18/18 12/06/19 Hydrocortisone [Cortef] 5 mg PO HS 06/26/18 12/06/19 Glucagon Emergency Kit 1 mg IM ONCE PRN 08/12/18 12/06/19 Cranberry 300mg 300 mg PO BID 10/08/18 12/06/19 Ferrous Sulfate [Iron (65 MG 325 mg PO DAILY 10/08/18 12/06/19 Elemental)] Folic Acid 0.4 mg PO DAILY 10/08/18 12/06/19 L.acidoph,Paracasei, B.lactis 2 cap PO BID 10/08/18 12/06/19 [Probiotic] Melatonin 5 mg PO HS PRN 10/08/18 12/06/19 Multivitamins, Thera Liquid 30 ml PO DAILY 10/08/18 12/06/19 [Theragran Liquid (formulary)] Potassium 99 mg PO DAILY 10/08/18 12/06/19 Thiamine [Vitamin B-1] 100 mg PO DAILY 10/08/18 12/06/19 Vitamin B-Complex Drops 1 drop PO BID 10/08/18 12/06/19 Lisinopril [Zestril] 15 mg PO DAILY 11/08/18 12/06/19 HYDROcodone/APAP 10-325MG [[place] 1 - 2 tab PO Q4H PRN 12/26/18 12/06/19 10-325] Pantoprazole [Protonix] 40 mg PO BID 01/29/19 12/06/19 Hydrocortisone [Cortef] 10 mg PO AC-LUNCH 08/30/19 12/06/19 Insulin Aspart [NovoLOG Flexpen] 14 units SQ AC-BRKFST 10/28/19 12/06/19 Insulin Glargine,Hum.rec.anlog 26 unit SQ HS 11/08/19 12/06/19 [Lantus Solostar] Venlafaxine HCl [Effexor XR] 75 mg PO DAILY 11/08/19 12/06/19 Acetaminophen Tab [Tylenol Tab] 1,000 mg PO Q6HR PRN 12/06/19 12/06/19 Brimonidine Tartrate [Alphagan P 1 drops RIGHT EYE BID 12/06/19 12/06/19 0.2% Ophth Soln] Butalb/APAP/Caff 50-325-40Mg 1 tab PO Q4H PRN 12/06/19 12/06/19 [Fioricet 50-325-40] Clopidogrel [Plavix] 75 mg PO DAILY 12/06/19 12/06/19 Gabapentin [Neurontin] 200 mg PO HS 12/06/19 12/06/19 Insulin Aspart [NovoLOG Flexpen] 22 units SQ AC-SUPPER 12/06/19 12/06/19 Magnesium Oxide [Mag-Ox] 400 mg PO DAILY 12/06/19 12/06/19 Methocarbamol [Robaxin-750] 750 mg PO TID PRN 12/06/19 12/06/19 Ondansetron HCl [Zofran] 4 mg PO Q6H PRN 12/06/19 12/06/19 Prochlorperazine [Compazine] 10 mg PO TID 12/06/19 12/06/19 Promethazine 6.25MG/5Ml [Phenergan 5 ml PO Q6H PRN 12/06/19 12/06/19 Syrup] Spironolactone 25 mg PO DAILY 12/06/19 12/06/19 Previous Rx's Medication Instructions Recorded Aspirin 81 mg PO DAILY #0 07/02/18 Atorvastatin [Lipitor] 40 mg PO HS #30 tab 11/16/18 Insulin Aspart [NovoLOG Flexpen] 18 units SQ AC-LUNCH #0 09/24/19 Ertapenem [INVanz] 1 gm IVPB Q24H #14 vial 11/30/19 Allergies Allergy/AdvReac Type Severity Reaction Status Date / Time butorphanol tartrate Allergy BLISTERS Verified 12/06/19 10:41 [From Stadol] IN MOUTH ceftriaxone [From Rocephin] Allergy Unknown Verified 12/06/19 10:41 clarithromycin [From Biaxin] Allergy Rash/Hives Verified 12/06/19 10:41 codeine Allergy Rash/Hives Verified 12/06/19 10:41 ergotamine tartrate Allergy Unknown Verified 12/06/19 10:41 [From Cafergot] erythromycin base Allergy RASH, GI Verified 12/06/19 10:41 [From E-Mycin] SYMPTOMS ketorolac tromethamine Allergy Rash/Hives Verified 12/06/19 10:41 [From Toradol] liraglutide [From Victoza] Allergy Rash/Hives Verified 12/06/19 10:41 morphine Allergy Rash/Hives Verified 12/06/19 10:41 Penicillins Allergy Rash/Hives Verified 12/06/19 10:41 pentazocine lactate Allergy SEVERE Verified 12/06/19 10:41 [From Talwin] BLISTERS IN MOUTH pregabalin [From Lyrica] Allergy Rash/Hives Verified 12/06/19 10:41 propoxyphene HCl Allergy Rash/Hives Verified 12/06/19 10:41 [From Darvon] Sulfa (Sulfonamide Allergy Rash/Hives Verified 12/06/19 10:41 Antibiotics) tramadol Allergy Unknown Verified 12/06/19 10:41 monosodium glutamate [MSG] AdvReac Nausea & Verified 12/06/19 10:41 Vomiting nalbuphine HCl [From Nubain] AdvReac Nausea & Verified 12/06/19 10:41 Vomiting Review of Systems ROS Statement: Those systems with pertinent positive or pertinent negative responses have been documented in the HPI. ROS Other: All systems not noted in ROS Statement are negative. 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, DVT R calf in 1976, cardiac murmur, occipital neuraligia, balance issues-has narrowing of vessels "in the back of my head", vertigo, varicosities, states rt shoulder torn rotator cuff History of Any Multi-Drug Resistant Organisms: ESBL, MRSA Date of last positivie culture/infection: 11/09/19 ESBL; 03/10/11 MRSA MDRO Source:: ESBL URINE; MRSA 4th rt TOE Past Surgical History: Appendectomy, Back Surgery, Bladder Surgery, Breast Surg kath, Cholecystectomy, Heart Catheterization, Hysterectomy, Orthopedic Surgery, Tonsillectomy Additional Past Surgical History / Comment(s): Lumbar fusions, bladder suspension, occipital nerve blocks, 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, R wrist/elbow nerve repair, bone removed R shoulder, 4th toe R foot partial amputation, bilateral feet/bunionectomies, R knee arthroscopies, R orbit decompression with ethmoidectomy and eyelid lift, EGD, colonoscopies, cystocopies, lithotripsy/stents, bilateral breast reduction, bilateral cataract removals, parathyroid surgery - April 2019, pain clinic procedures Past Anesthesia/Blood Transfusion Reactions: No Reported Reaction Additional Past Anesthesia/Blood Transfusion Reaction / Comment(s): never recieved blood Past Psychological History: No Psychological Hx Reported Smoking Status: Never smoker Past Alcohol Use History: None Reported Past Drug Use History: None Reported - Past Family History Father Family Medical History: Coronary Artery Disease (CAD), CVA/TIA, Diabetes Mellitus, Myocardial Infarction ([place]), Pneumonia Additional Family Medical History / Comment(s): Father at the age of 78yrs from [place] and pneumonia. Mother Family Medical History: Cancer Additional Family Medical History / Comment(s): Mother had uterine cancer. She recently at the age of 96yrs old from [facility]. General Exam - General Exam Comments Initial Comments: This is a well-developed well-nourished awake alert but lethargic appearing female Limitations: no limitations General appearance: alert, lethargic Head exam: Present: atraumatic, normocephalic, normal inspection Eye exam: Present: PERRL, EOMI, other (The patient does demonstrate exophthalmos). Absent: scleral icterus, conjunctival injection, periorbital swelling ENT exam: Present: mucous membranes dry Neck exam: Present: normal inspection, full ROM, other (No stridor JVD or bruits). Absent: tenderness, meningismus, lymphadenopathy Respiratory exam: Present: normal lung sounds bilaterally. Absent: respiratory distress, wheezes, rales, rhonchi, stridor Cardiovascular Exam: Present: normal rhythm, tachycardia, normal heart sounds. Absent: systolic murmur, diastolic murmur, rubs, gallop, clicks GI/Abdominal exam: Present: soft, normal bowel sounds. Absent: distended, tenderness, guarding, rebound, rigid Extremities exam: Present: normal inspection, full ROM, normal capillary refill. Absent: tenderness, pedal edema, joint swelling, calf tenderness Back exam: Present: normal inspection Neurological exam: Present: alert, oriented X3, CN II-XII intact Psychiatric exam: Present: normal affect, normal mood Skin exam: Present: warm, dry, intact, normal color. Absent: rash Course Vital Signs 12/06/19 12/06/19 10:11 12:14 Temperature 98.6 F Pulse Rate 114 H 112 H Respiratory 18 14 Rate Blood Pressure 149/85 129/70 O2 Sat by Pulse 94 L 87 L Oximetry Medical Decision Making - Medical Decision Making I discussed findings with the patient and with Dr. Marley. Patient will be admitted disease will be consulted. - Lab Data Result diagrams: 12/06/19 10:55 12/06/19 10:55 Lab Results 12/06/19 12/06/19 12/06/19 Range/Units 10:10 10:55 10:55 WBC 9.2 (3.8-10.6) k/uL RBC 5.23 (3.80-5.40) m/uL Hgb 15.0 (11.4-16.0) gm/dL Hct 48.0 H (34.0-46.0) % MCV 91.9 (80.0-100.0) fL MCH 28.8 (25.0-35.0) pg MCHC 31.3 (31.0-37.0) g/dL RDW 14.0 (11.5-15.5) % Plt Count 283 (150-450) k/uL Neutrophils % 68 % Lymphocytes % 23 % Monocytes % 5 % Eosinophils % 2 % Basophils % 1 % Neutrophils # 6.3 (1.3-7.7) k/uL Lymphocytes # 2.1 (1.0-4.8) k/uL Monocytes # 0.5 (0-1.0) k/uL Eosinophils # 0.2 (0-0.7) k/uL Basophils # 0.1 (0-0.2) k/uL Sodium 136 L (137-145) mmol/L Potassium 4.7 (3.5-5.1) mmol/L Chloride 101 (98-107) mmol/L Carbon Dioxide 25 (22-30) mmol/L Anion Gap 10 mmol/L BUN 8 (7-17) mg/dL Creatinine 0.59 (0.52-1.04) mg/dL Est GFR (CKD-EPI)AfAm >90 (>60 ml/min/1.73 sqM) Est GFR (CKD-EPI)NonAf >90 (>60 ml/min/1.73 sqM) Glucose 294 H (74-99) mg/dL Plasma Lactic Acid Sudhir (0.7-2.0) mmol/L Calcium 9.1 (8.4-10.2) mg/dL Total Bilirubin 0.8 (0.2-1.3) mg/dL AST 33 (14-36) U/L ALT 14 (4-34) U/L Alkaline Phosphatase 59 (38-126) U/L Creatine Kinase 45 (30-135) U/L Troponin I (0.000-0.034) ng/mL Total Protein 6.3 (6.3-8.2) g/dL Albumin 3.8 (3.5-5.0) g/dL Amylase <30 L (30-110) U/L Lipase 62 (23-300) U/L Urine Color Yellow Urine Appearance Clear (Clear) Urine pH 6.0 (5.0-8.0) Ur Specific [place]man 1.030 (1.001-1.035) Urine Protein Trace H (Negative) Urine Glucose (UA) 4+ H (Negative) Urine Ketones 3+ H (Negative) Urine Blood Negative (Negative) Urine Nitrite Negative (Negative) Urine Bilirubin Negative (Negative) Urine Urobilinogen 2.0 (<2.0) mg/dL Ur Leukocyte Esterase Large H (Negative) Urine RBC 10 H (0-5) /hpf Urine WBC 68 H (0-5) /hpf Ur Squamous Epith Cells 3 (0-4) /hpf Urine Bacteria Rare H (None) /hpf Hyaline Casts 1 (0-2) /lpf Urine Mucus Rare H (None) /hpf 12/06/19 12/06/19 Range/Units 10:55 10:55 WBC (3.8-10.6) k/uL RBC (3.80-5.40) m/uL Hgb (11.4-16.0) gm/dL Hct (34.0-46.0) % MCV (80.0-100.0) fL MCH (25.0-35.0) pg MCHC (31.0-37.0) g/dL RDW (11.5-15.5) % Plt Count (150-450) k/uL Neutrophils % % Lymphocytes % % Monocytes % % Eosinophils % % Basophils % % Neutrophils # (1.3-7.7) k/uL Lymphocytes # (1.0-4.8) k/uL Monocytes # (0-1.0) k/uL Eosinophils # (0-0.7) k/uL Basophils # (0-0.2) k/uL Sodium (137-145) mmol/L Potassium (3.5-5.1) mmol/L Chloride (98-107) mmol/L Carbon Dioxide (22-30) mmol/L Anion Gap mmol/L BUN (7-17) mg/dL Creatinine (0.52-1.04) mg/dL Est GFR (CKD-EPI)AfAm (>60 ml/min/1.73 sqM) Est GFR (CKD-EPI)NonAf (>60 ml/min/1.73 sqM) Glucose (74-99) mg/dL Plasma Lactic Acid Sudhir 2.1 H* (0.7-2.0) mmol/L Calcium (8.4-10.2) mg/dL Total Bilirubin (0.2-1.3) mg/dL AST (14-36) U/L ALT (4-34) U/L Alkaline Phosphatase (38-126) U/L Creatine Kinase (30-135) U/L Troponin I <0.012 (0.000-0.034) ng/mL Total Protein (6.3-8.2) g/dL Albumin (3.5-5.0) g/dL Amylase (30-110) U/L Lipase (23-300) U/L Urine Color Urine Appearance (Clear) Urine pH (5.0-8.0) Ur Specific Sunman (1.001-1.035) Urine Protein (Negative) Urine Glucose (UA) (Negative) Urine Ketones (Negative) Urine Blood (Negative) Urine Nitrite (Negative) Urine Bilirubin (Negative) Urine Urobilinogen (<2.0) mg/dL Ur Leukocyte Esterase (Negative) Urine RBC (0-5) /hpf Urine WBC (0-5) /hpf Ur Squamous Epith Cells (0-4) /hpf Urine Bacteria (None) /hpf Hyaline Casts (0-2) /lpf Urine Mucus (None) /hpf - Radiology Data Radiology results: report reviewed (I did review the imaging and report no acute findings), image reviewed Disposition Clinical Impression: Urinary tract infection, Gastroenteritis, Dehydration, Failure to thrive in adult Disposition: ADMITTED IP TO THIS [facility] Condition: Fair Referrals: Andrew Gonsales MD [Primary Care Provider] - 1-2 days
[2019-12-06 10:37] LABS: Appearance,Urine Clear (Clear); Bacteria,Urine Rare /hpf; Bilirubin,Urine Negative (Negative); Blood,Urine Negative (Negative); Color,Urine Yellow; Glucose,Urine (UA) 4+ (Negative); Hyaline Casts,Urine 1 /lpf (0-2); Leukocyte Esterase,Urine Large (Negative); Mucus,Urine Rare /hpf; Nitrite,Urine Negative (Negative); Protein,Urine Trace (Negative); RBC,Urine 10 /hpf (0-5); Squamous Epithelial Cell,Urine 3 /hpf (0-4); WBC,Urine 68 /hpf (0-5)
[2019-12-06 10:40] LABS: Ketones,Urine 3+ (Negative)
[2019-12-06] MEDS ORDERED: HYDROmorphone 1 MG/ML 1 ML SYRINGE IVP STA (11:13)
--- NOTE | 2019-12-06 11:17 | XR ---
EXAMINATION TYPE: XR KUB DATE OF EXAM: 12/06/2019 COMPARISON: 03/12/2019 HISTORY: Pain TECHNIQUE: Single supine KUB image of the abdomen is obtained FINDINGS: Small bowel demonstrates no evidence for dilatation or air fluid levels. Gas and fecal material is seen in non-distended colon. No convincing evidence for pneumoperitoneum. No unusual calcifications. The lung bases are clear. The osseous structures are intact. Postoperative changes lumbar spine are redemonstrated. Cholecystec dalila clips noted. Soft tissue calcifications. IMPRESSION: 1. Overall nonspecific nonobstructive bowel gas pattern.
[2019-12-06 11:24] LABS: ALT 14 U/L (4-34); AST 33 U/L (14-36); African American GFR (CKD) >90 (>60 ml/min/1.73 sqM); Albumin 3.8 g/dL (3.5-5.0); Alkaline Phosphatase 59 U/L (38-126); Amylase <30 U/L (30-110); Anion Gap 10 mmol/L; Blood Urea Nitrogen 8 mg/dL (7-17); Calcium 9.1 mg/dL (8.4-10.2); Carbon Dioxide 25 mmol/L (22-30); Chloride 101 mmol/L (98-107); Creatine Kinase 45 U/L (30-135); Glucose 294 mg/dL (74-99); Non-African American GFR(CKD) >90 (>60 ml/min/1.73 sqM); Sodium 136 mmol/L (137-145); Total Bilirubin 0.8 mg/dL (0.2-1.3); Total Protein 6.3 g/dL (6.3-8.2)
[2019-12-06 11:29] LABS: Basophils # (A) 0.1 k/uL (0-0.2); Basophils % (A) 1 %; Eosinophils # (A) 0.2 k/uL (0-0.7); Eosinophils % (A) 2 %; Lymphocytes # (A) 2.1 k/uL (1.0-4.8); Lymphocytes % (A) 23 %; MCH 28.8 pg (25.0-35.0); MCHC 31.3 g/dL (31.0-37.0); MCV 91.9 fL (80.0-100.0); Mean Platelet Volume 7.8; Monocytes # (A) 0.5 k/uL (0-1.0); Monocytes % (A) 5 %; Neutrophils # (A) 6.3 k/uL (1.3-7.7); Neutrophils % (A) 68 %; Platelet Count 283 k/uL (150-450); RBC 5.23 m/uL (3.80-5.40); WBC 9.2 k/uL (3.8-10.6)
[2019-12-06 11:38] LABS: Potassium 4.7 mmol/L (3.5-5.1)
[2019-12-06] MEDS ORDERED: NALOXONE 0.4 MG/ML 1 ML VIAL IV PRN (13:14)
[2019-12-06 14:22] LABS: Glucose,Whole Blood 266 mg/dL (75-99)
[2019-12-06] MEDS: BUTALB/APAP/CAFF 50-325-40MG TAB PO PRN ×2 (15:42→21:00)
[2019-12-06] MEDS: PROCHLORPERAZINE 5 MG TAB PO SCH ×2 (15:44→21:00)
[2019-12-06] MEDS ORDERED: HYDROcodone/APAP 10-325MG 1 EACH TAB PO PRN (16:51)
[2019-12-06] MEDS ORDERED: ACETAMINOPHEN TAB 325 MG TAB PO PRN (16:54)
[2019-12-06] MEDS ORDERED: ONDANSETRON 4 MG/2 ML VIAL IVP PRN (16:54)
[2019-12-06 17:10] LABS: Glucose,Whole Blood 270 mg/dL (75-99)
[2019-12-06] MEDS: INSULIN ASPART (NovoLOG) 100 UNIT/ML VIAL SQ SCH ×2 (17:28→21:45)
[2019-12-06] MEDS: HYDROcodone/APAP 10-325MG 1 EACH TAB PO PRN (18:21)
[2019-12-06] MEDS: SODIUM CHLORIDE 0.9% 1,000 ML IV SCH ×2 (18:56→21:00)
[2019-12-06] MEDS: GABAPENTIN 100 MG CAP PO SCH ×2 (19:57→20:11)
[2019-12-06] MEDS: METOPROLOL SUCCINATE (ER) 50 MG TAB.ER.24H PO SCH (19:57)
[2019-12-06] MEDS: ATORVASTATIN 40 MG TAB PO SCH (19:57)
[2019-12-06] MEDS: PANTOPRAZOLE 40 MG TABLET PO SCH (19:57)
[2019-12-06] MEDS: BRIMONIDINE TARTRATE 0.2% DROPS 5 ML BTL RIGHT EYE SCH (19:58)
[2019-12-06] MEDS ORDERED: HYDROCORTISONE 10 MG TAB PO SCH (21:00)
[2019-12-06] MEDS ORDERED: VITAMIN B COMPLEX PO SCH (21:00)
[2019-12-06 21:43] LABS: Glucose,Whole Blood 134 mg/dL (75-99)
[2019-12-07] MEDS: HYDROcodone/APAP 10-325MG 1 EACH TAB PO PRN ×3 (05:38→19:13)
[2019-12-07 06:53] LABS: Glucose,Whole Blood 246 mg/dL (75-99)
[2019-12-07] MEDS ORDERED: HYDROCORTISONE 10 MG TAB PO SCH ×2 (07:30→12:30)
[2019-12-07] MEDS: FERROUS SULFATE 325 MG TAB PO SCH (08:04)
[2019-12-07] MEDS: THIAMINE 100 MG TAB PO SCH (08:05)
[2019-12-07] MEDS: MAGNESIUM OXIDE 400 MG TAB PO SCH (08:05)
[2019-12-07] MEDS: ASPIRIN 81 MG PO SCH (08:05)
[2019-12-07] MEDS: PANTOPRAZOLE 40 MG TABLET PO SCH ×2 (08:05→20:56)
[2019-12-07] MEDS: CHOLECALCIFEROL 1,000 UNIT TAB PO SCH (08:05)
[2019-12-07] MEDS: INSULIN ASPART (NovoLOG) 100 UNIT/ML VIAL SQ SCH ×5 (08:06→20:53)
[2019-12-07] MEDS: CLOPIDOGREL 75 MG TAB PO SCH (08:06)
[2019-12-07] MEDS: SPIRONOLACTONE 25 MG TAB PO SCH (08:06)
[2019-12-07] MEDS: PROCHLORPERAZINE 5 MG TAB PO SCH ×3 (08:09→20:52)
[2019-12-07] MEDS: VENLAFAXINE HCL ER 75 MG CAP PO SCH (08:10)
[2019-12-07] MEDS: lisinopriL 5 MG TAB PO SCH (08:11)
[2019-12-07] MEDS: NON FORMULARY DRUG (Potassium [Potassium] 99 MG) PO SCH (08:11)
[2019-12-07] MEDS: BRIMONIDINE TARTRATE 0.2% DROPS 5 ML BTL RIGHT EYE SCH ×2 (08:12→20:53)
[2019-12-07] MEDS: MULTIVITAMINS, THERA LIQUID 237 ML BOTTLE PO SCH (08:12)
[2019-12-07] MEDS ORDERED: NON FORMULARY DRUG (Folic Acid [Folic Acid] 0.4 MG) PO SCH (09:00)
[2019-12-07] MEDS: BUTALB/APAP/CAFF 50-325-40MG TAB PO PRN (09:03)
[2019-12-07] MEDS: SODIUM CHLORIDE 0.9% 1,000 ML IV SCH ×2 (09:46→19:14)
--- NOTE | 2019-12-07 10:12 | P.CONS ---
History of Present Illness - Reason for Consult Consult date: 12/06/19 Urinary tract infection and antibiotic recommendations Requesting physician: Familia Gill - Chief Complaint Nausea vomiting diarrhea 2 days - History of Present Illness Patient is 69-year-old female with a past medical history significant for recurrent infections infection in this patient recently did grew ESBL E. coli in her urine was recently admitted with a similar symptom diagnosed with a urinary tract infection she was treated with Invanz and did have a improvement in her symptoms subsequently did get a midline and was receiving Invanz 1 g daily at home patient has been brought into the ER by EMS with concern for nausea vomiting diarrhea with the symptom has been going on for the last 2 days patient did have decreased oral intake with generalized weakness denies having any fever or any chills to having some urinary burning occasionally and frequ ency with the Center patient was evaluated by the ER physician on arrival to the area patient has been afebrile but did have a normal white count UA was positive acute abdominal series did shows nonobstructive bowel gas pattern patient has been admitted to the hospital infectious disease was consulted for further management of antibiotic therapy Review of Systems Positive point has been mentioned in the HPI rest of the systems are negative Past Medical History Past Medical History: Diabetes Mellitus, Deep Vein Thrombosis (DVT), Fibromyalgia, Hyperlipidemia, Hypertension, Osteoarthritis (OA), Pneumonia, Renal Disease, Sleep Apnea/CPAP/BIPAP, Vascular Disorder Additional Past Medical History / Comment(s): Pt recently admitted to [facility] on 11/28/19 with recurerent UTI. 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, DVT R calf in 1976, cardiac murmur, occipital neuraligia, balance issues-has victorino rowing of vessels "in the back of my head", vertigo, varicosities, states rt shoulder torn rotator cuff History of Any Multi-Drug Resistant Organisms: ESBL, MRSA Year Discovered:: 11/09/19 ESBL; 03/10/11 MRSA MDRO Source:: ESBL URINE; MRSA 4th rt TOE Past Surgical History: Appendectomy, Back Surgery, Bladder Surgery, Breast Surgery, Cholecystectomy, Heart Catheterization, Hysterectomy, Orthopedic S urgery, Tonsillectomy Additional Past Surgical History / Comment(s): Lumbar fusions, bladder suspension, occipital nerve blocks, 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, R wrist/elbow nerve repair, bone removed R shoulder, 4th toe R foot partial amputation, bilateral feet/bunionectomies, R knee arthroscopies, R orbit decompression with ethmoidectomy and eyelid lift, EGD, colonoscopies, cystocopies, lithotripsy/stents, bilateral breast reduction, bilateral cataract removals, parathyroid surgery - April 2019, pain clinic procedures Past Anesthesia/Blood Transfusion Reactions: No Reported Reaction Additional Past Anesthesia/Blood Transfusion Reaction / Comm: never recieved blood Smoking Status: Never smoker - Past Family History Father Family Medical History: Coronary Artery Disease (CAD), CVA/TIA, Diabetes Mellitus, Myocardial Infarction (AL), Pneumonia Additional Family Medical History / Comment(s): Father at the age of 78yrs from AL and pneumonia. Mother Family Medical History: Cancer Additional Family Medical History / Comment(s): Mother had uterine cancer. She recently at the age of 96yrs old from [place]. Medications and Allergies Home Medications Medication Instructions Recorded Confirmed Type Cholecalciferol [Vitamin D3 (25 3,000 unit PO DAILY@0700 12/01/14 12/06/19 History Mcg = 1000 Iu)] Metoprolol Succinate (ER) [Toprol 50 mg PO HS 07/06/17 12/06/19 History XL] Meclizine [Antivert] 25 mg PO TID PRN 11/26/17 12/06/19 History Hydrocortisone [Cortef] 15 mg PO AC-BRKFST 05/18/18 12/06/19 History Hydrocortisone [Cortef] 5 mg PO HS 06/26/18 12/06/19 History Aspirin 81 mg PO DAILY #0 07/02/18 12/06/19 Rx Glucagon Emergency Kit 1 mg IM ONCE PRN 08/12/18 12/06/19 History Cranberry 300mg 300 mg PO BID 10/08/18 12/06/19 History Ferrous Sulfate [Iron (65 MG 325 mg PO DAILY 10/08/18 12/06/19 History Elemental)] Folic Acid 0.4 mg PO DAILY 10/08/18 12/06/19 History L.acidoph,Paracasei, B.lactis 2 cap PO BID 10/08/18 12/06/19 History [Probiotic] Melatonin 5 mg PO HS PRN 10/08/18 12/06/19 History Multivitamins, Thera Liquid 30 ml PO DAILY 10/08/18 12/06/19 History [Theragran Liquid (formulary)] Potassium 99 mg PO DAILY 10/08/18 12/06/19 History Thiamine [Vitamin B-1] 100 mg PO DAILY 10/08/18 12/06/19 History Vitamin B-Complex Drops 1 drop PO BID 10/08/18 12/06/19 History Lisinopril [Zestril] 15 mg PO DAILY 11/08/18 12/06/19 History Atorvastatin [Lipitor] 40 mg PO HS #30 tab 11/16/18 12/06/19 Rx HYDROcodone/APAP 10-325MG [Topping 1 - 2 tab PO Q4H PRN 12/26/18 12/06/19 History 10-325] Pantoprazole [Protonix] 40 mg PO BID 01/29/19 12/06/19 History Hydrocortisone [Cortef] 10 mg PO AC-LUNCH 08/30/19 12/06/19 History Insulin Aspart [NovoLOG Flexpen] 18 units SQ AC-LUNCH #0 09/24/19 12/06/19 Rx Insulin Aspart [NovoLOG Flexpen] 14 units SQ AC-BRKFST 10/28/19 12/06/19 History Insulin Glargine,Hum.rec.anlog 26 unit SQ HS 11/08/19 12/06/19 History [Lantus Solostar] Venlafaxine HCl [Effexor XR] 75 mg PO DAILY 11/08/19 12/06/19 History Ertapenem [INVanz] 1 gm IVPB Q24H #14 vial 11/30/19 Rx Acetaminophen Tab [Tylenol Tab] 1,000 mg PO Q6HR PRN 12/06/19 12/06/19 History Brimonidine Tartrate [Alphagan P 1 drops RIGHT EYE BID 12/06/19 12/06/19 History 0.2% Ophth Soln] Butalb/APAP/Caff 50-325-40Mg 1 tab PO Q4H PRN 12/06/19 12/06/19 History [Fioricet 50-325-40] Clopidogrel [Plavix] 75 mg PO DAILY 12/06/19 12/06/19 History Gabapentin [Neurontin] 200 mg PO HS 12/06/19 12/06/19 History Insulin Aspart [NovoLOG Flexpen] 22 units SQ AC-SUPPER 12/06/19 12/06/19 History Magnesium Oxide [Mag-Ox] 400 mg PO DAILY 12/06/19 12/06/19 History Methocarbamol [Robaxin-750] 750 mg PO TID PRN 12/06/19 12/06/19 History Ondansetron HCl [Zofran] 4 mg PO Q6H PRN 12/06/19 12/06/19 History Prochlorperazine [Compazine] 10 mg PO TID 12/06/19 12/06/19 History Promethazine 6.25MG/5Ml [Phenergan 5 ml PO Q6H PRN 12/06/19 12/06/19 History Syrup] Spironolactone 25 mg PO DAILY 12/06/19 12/06/19 History Allergies Allergy/AdvReac Type Severity Reaction Status Date / Time butorphanol tartrate Allergy BLISTERS Verified 12/06/19 10:41 [From Stadol] IN MOUTH ceftriaxone [From Rocephin] Allergy Unknown Verified 12/06/19 10:41 clarithromycin [From Biaxin] Allergy Rash/Hives Verified 12/06/19 10:41 codeine Allergy Rash/Hives Verified 12/06/19 10:41 ergotamine tartrate Allergy Unknown Verified 12/06/19 10:41 [From Cafergot] erythromycin base Allergy RASH, GI Verified 12/06/19 10:41 [From E-Mycin] SYMPTOMS ketorolac tromethamine Allergy Rash/Hives Verified 12/06/19 10:41 [From Toradol] liraglutide [From Victoza] Allergy Rash/Hives Verified 12/06/19 10:41 morphine Allergy Rash/Hives Verified 12/06/19 10:41 Penicillins Allergy Rash/Hives Verified 12/06/19 10:41 pentazocine lactate Allergy SEVERE Verified 12/06/19 10:41 [From Talwin] BLISTERS IN MOUTH pregabalin [From Lyrica] Allergy Rash/Hives Verified 12/06/19 10:41 propoxyphene HCl Allergy Rash/Hives Verified 12/06/19 10:41 [From Darvon] Sulfa (Sulfonamide Allergy Rash/Hives Verified 12/06/19 10:41 Antibiotics) tramadol Allergy Unknown Verified 12/06/19 10:41 monosodium glutamate [MSG] AdvReac Nausea & Verified 12/06/19 10:41 Vomiting nalbuphine HCl [From Nubain] AdvReac Nausea & Verified 12/06/19 10:41 Vomiting Physical Exam Vitals: Vital Signs Temp Pulse Pulse Resp BP BP Pulse Ox 12/07/19 07:00 98.7 F 84 17 120/70 96 12/07/19 01:00 98.8 F 83 20 119/77 97 12/06/19 19:10 99.4 F 111 H 20 109/74 95 12/06/19 16:00 121 H 18 12/06/19 14:10 98.3 F 121 H 18 129/80 91 L 12/06/19 13:30 115 H 16 149/99 95 12/06/19 12:30 112 H 16 129/70 92 L 12/06/19 12:14 112 H 14 129/70 87 L 12/06/19 10:13 149/85 94 L 12/06/19 10:11 98.6 F 114 H 18 149/85 94 L Intake and Output 12/06/19 12/07/19 12/07/19 22:59 06:59 14:59 Intake Total 300 800 Balance 300 800 Intake: Intake, IV Titration 300 800 Amount Sodium Chloride 0.9% 1, 300 800 000 ml @ 100 mls/hr IV . Q10H [facility] Rx#:[id number] Other: Voiding Method Bedside Commode Bedside Commode GENERAL DESCRIPTION: An elderly female lying in bed, no distress. No tachypnea or accessory muscle of respiration use. HEENT: Shows Pallor , no scleral icterus. Oral mucous membrane is dry. No pharyngeal erythema or thrush NECK: Trachea central, no thyromegaly. LUNGS: Unlabored breathing. Clear to auscultation anteriorly. No wheeze or crackle. HEART: S1, S2, regular rate and rhythm. No loud murmur ABDOMEN: Soft, no tenderness , guarding or rigidity, no organomegaly EXTREMITIES: No edema of feet. SKIN: No rash, no masses palpable. NEUROLOGICAL: The patient is awake, alert, oriented x3, mood and affect normal. Results CBC & Chem 7: 12/06/19 10:55 12/06/19 10:55 Labs: Abnormal Lab Results - Last 24 Hours (Table) 12/06/19 12/06/19 12/06/19 Range/Units 10:10 10:55 10:55 Hct 48.0 H (34.0-46.0) % Sodium 136 L (137-145) mmol/L Glucose 294 H (74-99) mg/dL POC Glucose (mg/dL) (75-99) mg/dL Plasma Lactic Acid Sudhir (0.7-2.0) mmol/L Amylase <30 L (30-110) U/L Urine Protein Trace H (Negative) Urine Glucose (UA) 4+ H (Negative) Urine Ketones 3+ H (Negative) Ur Leukocyte Esterase Large H (Negative) Urine RBC 10 H (0-5) /hpf Urine WBC 68 H (0-5) /hpf Urine Bacteria Rare H (None) /hpf Urine Mucus Rare H (None) /hpf 12/06/19 12/06/19 12/06/19 Range/Units 10:55 14:21 17:09 Hct (34.0-46.0) % Sodium (137-145) mmol/L Glucose (74-99) mg/dL POC Glucose (mg/dL) 266 H 270 H (75-99) mg/dL Plasma Lactic Acid Sudhir 2.1 H* (0.7-2.0) mmol/L Amylase (30-110) U/L Urine Protein (Negative) Urine Glucose (UA) (Negative) Urine Ketones (Negative) Ur Leukocyte Esterase (Negative) Urine RBC (0-5) /hpf Urine WBC (0-5) /hpf Urine Bacteria (None) /hpf Urine Mucus (None) /hpf 12/06/19 12/07/19 Range/Units 21:18 06:52 Hct (34.0-46.0) % Sodium (137-145) mmol/L Glucose (74-99) mg/dL POC Glucose (mg/dL) 134 H 246 H (75-99) mg/dL Plasma Lactic Acid Sudhir (0.7-2.0) mmol/L Amylase (30-110) U/L Urine Protein (Negative) Urine Glucose (UA) (Negative) Urine Ketones (Negative) Ur Leukocyte Esterase (Negative) Urine RBC (0-5) /hpf Urine WBC (0-5) /hpf Urine Bacteria (None) /hpf Urine Mucus (None) /hpf Microbiology - Last 24 Hours (Table) 12/06/19 10:10 Urine Culture - Preliminary Urine,Voided Assessment and Plan Assessment: 1-patient with a history of recurrent urinary tract infection in this patient has grown ESBL pathogen predominantly recently and the patient was getting antibiotic for the same now presenting with what the nausea vomiting diarrhea which has been her usual presentation with a UTI and did have a positive UA with concern for urinary tract infection however other etiologies such as C. diff colitis" as patient has been exposed to antibiotics 2-Patient with multiple antibiotic ALLERGIES that would limit the number of antibiotic safe to use (1) Diarrhea Current Visit: Yes Status: Acute Code(s): R19.7 - DIARRHEA, UNSPECIFIED SNOMED Code(s): 87067443 (2) UTI (urinary tract infection) Current Visit: Yes Status: Acute Code(s): N39.0 - URINARY TRACT INFECTION, SITE NOT SPECIFIED SNOMED Code(s): 74707673 Plan: 1- we will obtain a stool for C. diff and stool culture 2-we will wait for the urine culture to be finalized 3-continue with Invanz 1 g daily 4-IV fluids We will follow on clinical condition and cultures to further adjust medication if needed Thank you for this consultation will follow this patient with you Time with Patient: Greater than 30
[2019-12-07 11:30] LABS: Glucose,Whole Blood 273 mg/dL (75-99)
[2019-12-07] MEDS: ERTAPENEM 1 GM in SODIUM CHLORIDE 0.9% 50 ML IVPB SCH (11:57)
[2019-12-07 12:09] VITALS: BMI 27.9
[2019-12-07] MEDS: HYDROmorphone 0.5 MG/0.5 ML SYRINGE IVP PRN ×2 (16:17→23:06)
[2019-12-07] MEDS: HYDROCORTISONE SUCCINATE 100 MG/2 ML VIAL IV SCH ×2 (16:17→23:07)
[2019-12-07 16:26] LABS: Glucose,Whole Blood 431 mg/dL (75-99)
[2019-12-07] MEDS ORDERED: INSULIN DETEMIR (LEVEMIR) 100 UNIT/ML SYR SQ ONE (16:50)
[2019-12-07 17:57] LABS: Glucose,Whole Blood 398 mg/dL (75-99)
[2019-12-07] MEDS ORDERED: methocarbamoL 750 MG TAB PO PRN (19:52)
[2019-12-07] MEDS ORDERED: MELATONIN 5 MG TABLET PO PRN (19:52)
[2019-12-07] MEDS ORDERED: PROMETHAZINE HCL 6.25 MG/5 ML CUP PO PRN (19:52)
[2019-12-07] MEDS ORDERED: MECLIZINE 25 MG TAB PO PRN (19:52)
[2019-12-07 20:23] LABS: Glucose,Whole Blood 369 mg/dL (75-99)
[2019-12-07] MEDS: GABAPENTIN 100 MG CAP PO SCH (20:52)
[2019-12-07] MEDS: METOPROLOL SUCCINATE (ER) 50 MG TAB.ER.24H PO SCH (20:52)
[2019-12-07] MEDS: ATORVASTATIN 40 MG TAB PO SCH (20:52)
[2019-12-07] MEDS: INSULIN DETEMIR (LEVEMIR) 100 UNIT/ML SYR SQ SCH (20:52)
--- NOTE | 2019-12-07 20:53 | HP ---
HISTORY AND PHYSICAL DATE OF SERVICE: 12/07/2019 CHIEF COMPLAINT: UTI. HISTORY OF PRESENT ILLNESS: This 69-year-old woman with a past medical history of multiple medical problems including recurrent UTI was recently admitted with acute UTI and possibly pyelonephritis. The patient had apparently ESBL E coli and the patient treated with Invanz and improving symptoms and subsequently med line was initiated and Invanz 1 g was recommended in the outpatient setting, but currently the patient is complaining of nausea, vomiting, diarrhea, and the patient also had features of UTI and this patient was admitted for evaluation and treatment. Most recent urine culture showed group B Enterococcus and E species. Final ID is pending at this time. There is no history of headache, loss of consciousness, seizures. No history of fever, rigors, chills at this time. PAST MEDICAL HISTORY: History of recurrent UTIs, history of adrenocortical insufficiency, diabetes mellitus, DVT, history of hypertension, hyperlipidemia, history of sleep apnea. HOME MEDICATIONS: 1. Vitamin B complex. 2. Effexor XR. 3. Vitamin B1. 4. Aldactone. 5. Phenergan. 6. Compazine. 7. Protonix. 8. Zofran. 9. Multivitamins. 10.Metoprolol. 11.Methocarbamol. 12.Melatonin. 13.Meclizine. 14.Magnesium oxide. 15.Zestril. 16.Insulin. 17.Cortef. 18.[place] 10 mg. 19.( ). 20.Folic acid. 21.Plavix. 22.Vitamin D3. 23.Fioricet. 24.Lipitor. 25.Aspirin. 26.Tylenol. 27.Neurontin. 28.Invanz. ALLERGIES: STADOL, ROCEPHIN, BIAXIN, CODEINE, CAFERGOT, E-MYCIN, TORADOL, VICTOZA, MORPHINE, PENICILLIN, TALWIN, LYRICA, DARVON, SULFA, ULTRAM, MSG AND NUBAIN. FAMILY HISTORY: History of cancer in the family. SOCIAL HISTORY: No history of smoking. No alcohol intake. REVIEW OF SYSTEMS: ENT Diminished hearing, diminished vision. CARDIOVASCULAR No angina or palpitations. RESPIRATORY No cough, no hemoptysis. GI As mentioned earlier. As mentioned earlier. NERVOUS As mentioned earlier. ALLERGY/IMMUNOLOGY No asthma or hayfever. MUSCULOSKELETAL As mentioned earlier. HEMATOLOGY/ONCOLOGY Negative. ENDOCRINE As mentioned earlier. CONSTITUTIONAL As mentioned earlier. DERMATOLOGY Negative. RHEUMATOLOGY Negative, PSYCHIATRY As mentioned earlier. PHYSICAL EXAMINATION: Alert and oriented x3. Pulse 84, blood pressure 124/70, respirations 17, temperature 98.7, pulse ox 98% on 2 L HEENT: Conjunctivae normal. Oral mucosa moist. NECK: No jugular venous distention. No lymph node enlargement. CARDIOVASCULAR: S1, S2. RESPIRATORY: Diminished breath sounds at the bases. A few scattered rhonchi and crackles. ABDOMEN: Soft, obese, nontender. No mass palpable. LEGS: No edema, no swelling. NERVOUS SYSTEM: Higher functions mentioned earlier. Moves all four limbs. No focal motor or sensory deficits. LYMPHATICS: No lymph node in neck or axilla. SKIN: No rash. JOINTS: No active deforming arthropathy. LABS: Accu-Cheks 273, 431, 398. Other labs are WBC 9.2, sodium 136. ASSESSMENT: 1. Acute urinary tract infection with sepsis, possibly failure of outpatient treatment. 2. History of recent ESBL E coli. 3. Group B Enterococcus and E species grown from the culture. 4. Diabetes type 2, uncontrolled with hyperglycemia. 5. History of deep vein thrombosis. 6. Fibromyalgia. 7. Hypertension. 8. Hyperlipidemia. 9. History of degenerative joint disease. 10.History of sleep apnea. 11.History of recurrent urinary tract infections. 12.History of peripheral neuropathy. 13.History of pyelonephritis and sepsis. 14.History of nephrolithiasis. 15.History of hyperparathyroidism. 16.History of degenerative joint disease. 17.History of occipital cephalalgia. 18.History ESBL E coli. 19.History of appendectomy. 20.History of bladder surgery. 21.History of adrenocortical insufficiency. 22.FULL CODE. 23.History of exophthalmos. 24.History of hyperparathyroidism. 25.History of toe amputation. 26.History of cardiac murmur. 27.History of deep venous thrombosis. RECOMMENDATIONS AND DISCUSSION: In this 69-year-old woman who presented with multiple complex medical issues, we will monitor the patient closely, continue the current management, continue symptomatic treatment, Infectious Disease evaluation, cultures. Invanz has been initiated on empiric basis but will continue to monitor. Otherwise, we will await the final ID. Resume the home medications. Monitor closely. High-dose IV steroids. Monitor blood sugars closely. I would initiate home dose of insulin if the sugars are not controlled. I would also recommend insulin drip to control the sugar less than 200. Guarded prognosis. Further recommendations to follow. See orders for further details. MMODL / IJN: [id number] /
[2019-12-07] MEDS: LACTOBACILLUS ACIDOPH & BULGAR 1 EACH PACKET PO SCH (20:59)
--- NOTE | 2019-12-07 23:19 | PN ---
PROGRESS NOTE DATE OF SERVICE: 12/07/2019 REASON FOR FOLLOWUP: Recurrent urinary tract infection, diarrhea and question of C difficile. The patient is currently afebrile. The patient is complaining of worsening of her diarrhea. The patient denies having any chest pain or shortness of breath or cough. No nausea, no vomiting. PHYSICAL EXAMINATION: Blood pressure is 111/72 with a pulse of 99, temperature 98.1. She is 97% on 2 L nasal cannula. General description is an elderly female lying in bed in no distress. Respiratory system: Unlabored breathing, clear to auscultation anteriorly. Heart S1, S2. Regular rate and rhythm. Abdomen soft, no tenderness. LABS: Stool for C difficile has not been collected. No CBC done today. Urine culture pending. DIAGNOSTIC IMPRESSION AND PLAN: Patient with recent recurrent UTIs with ESBL E coli for the patient also in with the hospital with acute nausea, vomiting and diarrhea with concern for possible infectious colitis. Stool sample could not be collected. We will add Questran for symptomatic relief. Continue Invanz and monitor clinical course closely. SUMEET / ALLEGRA: [id number] /
[2019-12-08 01:39] LABS: Glucose,Whole Blood 296 mg/dL (75-99)
[2019-12-08] MEDS: HYDROmorphone 0.5 MG/0.5 ML SYRINGE IVP PRN ×4 (04:44→22:40)
[2019-12-08] MEDS: SODIUM CHLORIDE 0.9% 1,000 ML IV SCH ×2 (04:44→14:56)
[2019-12-08 07:12] LABS: Glucose,Whole Blood 253 mg/dL (75-99)
[2019-12-08 07:59] LABS: Basophils % (A) 0 %; Eosinophils # (A) 0.1 k/uL (0-0.7); Eosinophils % (A) 1 %; HCT 36.5 % (34.0-46.0); HGB 12.1 gm/dL (11.4-16.0); Lymphocytes # (A) 0.9 k/uL (1.0-4.8); Lymphocytes % (A) 14 %; MCH 30.6 pg (25.0-35.0); MCHC 33.1 g/dL (31.0-37.0); MCV 92.5 fL (80.0-100.0); Mean Platelet Volume 7.9; Monocytes # (A) 0.2 k/uL (0-1.0); Monocytes % (A) 4 %; Neutrophils # (A) 5.2 k/uL (1.3-7.7); Neutrophils % (A) 81 %; Platelet Count 244 k/uL (150-450); RBC 3.94 m/uL (3.80-5.40); RDW 13.7 % (11.5-15.5); WBC 6.4 k/uL (3.8-10.6)
[2019-12-08 08:11] LABS: African American GFR (CKD) >90 (>60 ml/min/1.73 sqM); Anion Gap 4 mmol/L; Blood Urea Nitrogen 10 mg/dL (7-17); Calcium 8.2 mg/dL (8.4-10.2); Carbon Dioxide 26 mmol/L (22-30); Chloride 107 mmol/L (98-107); Glucose 220 mg/dL (74-99); Non-African American GFR(CKD) >90 (>60 ml/min/1.73 sqM); Potassium 4.3 mmol/L (3.5-5.1); Sodium 137 mmol/L (137-145)
[2019-12-08] MEDS: CHOLECALCIFEROL 1,000 UNIT TAB PO SCH (08:37)
[2019-12-08] MEDS: FERROUS SULFATE 325 MG TAB PO SCH (08:37)
[2019-12-08] MEDS: PANTOPRAZOLE 40 MG TABLET PO SCH ×2 (08:37→21:00)
[2019-12-08] MEDS: CLOPIDOGREL 75 MG TAB PO SCH (08:38)
[2019-12-08] MEDS: MAGNESIUM OXIDE 400 MG TAB PO SCH (08:38)
[2019-12-08] MEDS: lisinopriL 5 MG TAB PO SCH (08:38)
[2019-12-08] MEDS: ASPIRIN 81 MG PO SCH (08:39)
[2019-12-08] MEDS: THIAMINE 100 MG TAB PO SCH (08:39)
[2019-12-08] MEDS: VENLAFAXINE HCL ER 75 MG CAP PO SCH (08:39)
[2019-12-08] MEDS: HYDROcodone/APAP 10-325MG 1 EACH TAB PO PRN ×3 (08:39→21:00)
[2019-12-08] MEDS: SPIRONOLACTONE 25 MG TAB PO SCH (08:39)
[2019-12-08] MEDS: INSULIN ASPART (NovoLOG) 100 UNIT/ML VIAL SQ SCH ×7 (08:40→20:59)
[2019-12-08] MEDS: HYDROCORTISONE SUCCINATE 100 MG/2 ML VIAL IV SCH ×3 (08:41→23:38)
[2019-12-08] MEDS: MULTIVITAMINS, THERA LIQUID 237 ML BOTTLE PO SCH (08:42)
[2019-12-08] MEDS: BRIMONIDINE TARTRATE 0.2% DROPS 5 ML BTL RIGHT EYE SCH ×2 (08:42→20:58)
[2019-12-08] MEDS: LACTOBACILLUS ACIDOPH & BULGAR 1 EACH PACKET PO SCH ×2 (08:42→17:13)
[2019-12-08] MEDS: NON FORMULARY DRUG (Potassium [Potassium] 99 MG) PO SCH (08:43)
[2019-12-08] MEDS: PROCHLORPERAZINE 5 MG TAB PO SCH ×3 (08:43→21:00)
[2019-12-08] MEDS: CHOLESTYRAMINE (WITH SUGAR) 4 GM PACKET PO SCH ×2 (09:00→17:27)
[2019-12-08] MEDS: ERTAPENEM 1 GM in SODIUM CHLORIDE 0.9% 50 ML IVPB SCH (11:19)
[2019-12-08 11:34] LABS: Glucose,Whole Blood 279 mg/dL (75-99)
[2019-12-08 16:35] LABS: Glucose,Whole Blood 212 mg/dL (75-99)
[2019-12-08 20:20] LABS: Glucose,Whole Blood 179 mg/dL (75-99)
[2019-12-08] MEDS: ATORVASTATIN 40 MG TAB PO SCH (20:58)
[2019-12-08] MEDS: GABAPENTIN 100 MG CAP PO SCH (20:59)
[2019-12-08] MEDS: INSULIN DETEMIR (LEVEMIR) 100 UNIT/ML SYR SQ SCH (21:00)
[2019-12-08] MEDS: METOPROLOL SUCCINATE (ER) 50 MG TAB.ER.24H PO SCH (21:00)
--- NOTE | 2019-12-08 23:24 | PN ---
PROGRESS NOTE DATE OF SERVICE: 12/08/2019 I am covering for Dr. Gonsales. This 69-year-old woman with a past medical history of multiple medical problems admitted with UTI with failure of outpatient treatment. Patient started on ertapenem empirically. The cultures are showing Enterococcus faecium, VRE and Irma albicans. Patient closely monitored. No chest pain. No palpitations. No fever. PAST MEDICAL HISTORY: Reviewed. REVIEW OF SYSTEMS: CARDIOVASCULAR SYSTEM: No angina or palpitations. RESPIRATORY SYSTEM: As mentioned earlier. GI: As mentioned earlier. : As mentioned earlier. NERVOUS SYSTEM: No numbness or weakness. CURRENT MEDICATIONS: Current medications are reviewed and include: 1. Tylenol p.r.n. 2. Fioricet p.r.n. 3. [place] 10 mg. 4. Aspirin. 5. Lipitor 40 mg. 6. Alphagan eye drops. 7. Vitamin D3. 8. Plavix. 9. Ertapenem. 10.Iron sulfate. 11.Neurontin. 12.Solu-Cortef. 13.Dilaudid. 14.NovoLog. 15.Levemir. 16.Lactinex. 17.Zestril. 18.Antivert. 19.Robaxin. 20.Toprol. 21.Narcan. 22.Protonix. 23.Compazine. The rest of the medications reviewed. Doses are reviewed. PHYSICAL EXAMINATION: Patient is alert and oriented x3. Pulse 80, blood pressure 124/72, respiration 18, temperature 98.2 pulse ox 98% on 2 L. HEENT: Conjunctivae normal. NECK: No jugular venous distention. CARDIOVASCULAR: S1, S2 muffled. RESPIRATORY: Breath sounds diminished at the bases. A few scattered rhonchi. No crackles. ABDOMEN: Soft, nontender. LEGS: No edema, no swelling. NERVOUS SYSTEM: Diffusely weak. LABS: CBC within normal limits, otherwise, glucose 253, 279 and 212. ASSESSMENT: 1. Acute urinary tract infection with sepsis, possibly failure of outpatient treatment with VRE and Irma albicans in the urine. 2. History of recent ESBL Escherichia coli. 3. Diabetes mellitus type 2, uncontrolled with hyperglycemia. 4. History of deep vein thrombosis. 5. Fibromyalgia. 6. Hypertension. 7. Hyperlipidemia. 8. History of degenerative joint disease. 9. History of sleep apnea. 10.History of recurrent urinary tract infections. 11.History of peripheral neuropathy. 12.History of pyelonephritis and sepsis. 13.History of nephrolithiasis. 14.History of hyperparathyroidism. 15.History of degenerative joint disease. 16.History of occipital cephalalgia. 17.History of appendectomy. 18.History of bladder surgery. 19.History of adrenocortical insufficiency. 20.History of exophthalmus. 21.History of toe amputation. 22.History of cardiac murmur. 23.History of deep vein thrombosis. 24.FULL CODE. RECOMMENDATIONS AND DISCUSSION: This 69-year-old woman presented with multiple medical issues, I would recommend to continue with the antibiotics. Follow the cultures. Closely monitor. Taper the steroids. Continue the rest of medication. Dr. Gonsales will follow. Prognosis guarded. Further recommendations to follow. Symptomatic treatment also will be provided. MMTRUDIL / IJN: [id number] /
[2019-12-09] MEDS: HYDROcodone/APAP 10-325MG 1 EACH TAB PO PRN ×4 (02:52→21:07)
[2019-12-09 02:59] LABS: Bacteria,Urine Rare /hpf; Budding Yeast,Urine Few /hpf; Hyaline Casts,Urine 5 /lpf (0-2); Mucus,Urine Occasional /hpf; RBC,Urine 19 /hpf (0-5); Squamous Epithelial Cell,Urine 3 /hpf (0-4); WBC,Urine 106 /hpf (0-5)
[2019-12-09 03:00] LABS: Appearance,Urine Turbid (Clear); Color,Urine Yellow; Specific Gravity,Urine 1.025 (1.001-1.035)
[2019-12-09 03:01] LABS: Bilirubin,Urine Negative (Negative); Blood,Urine Negative (Negative); Glucose,Urine (UA) Negative (Negative); Ketones,Urine Negative (Negative); Nitrite,Urine Negative (Negative); Protein,Urine 1+ (Negative); Urobilinogen,Urine <2.0 mg/dL (<2.0)
[2019-12-09 03:02] LABS: Leukocyte Esterase,Urine Large (Negative)
[2019-12-09] MEDS: SODIUM CHLORIDE 0.9% 1,000 ML IV SCH ×2 (03:14→10:55)
[2019-12-09] MEDS: HYDROmorphone 0.5 MG/0.5 ML SYRINGE IVP PRN ×2 (04:52→11:00)
--- NOTE | 2019-12-09 06:28 | PN ---
PROGRESS NOTE DATE OF SERVICE: 12/08/2019 REASON FOR FOLLOWUP: Urinary tract infection, recurrent. INTERVAL HISTORY: Patient is currently afebrile. Patient is feeling better today. Breathing comfortably. Denies having any chest pain or cough. No nausea, no vomiting or diarrhea. PHYSICAL EXAMINATION: Blood pressure 135/66, pulse of 78, temperature 98.2. She is 97% on room air. General description is an elderly female lying in bed in no distress. RESPIRATORY SYSTEM: Unlabored breathing, clear to auscultation anteriorly. HEART: S1, S2. Regular rate and rhythm. ABDOMEN: Soft, no tenderness. EXTREMITIES: No edema of the feet. LABS: Urine now showing a VRE and yeast. Hemoglobin is 12.1, white count 6.4 creatinine 0.49. Stool studies have not been obtained. DIAGNOSTIC IMPRESSION AND PLAN: Patient with recurrent urinary tract infection with recent diagnosis of ESBL Escherichia coli now urine showing VRE, but low colony count. The patient no fever or elevated white count. We will repeat a urine culture, empirically add daptomycin. Depending upon repeat UA will determine if the patient needs further antibiotic on discharge or not. Continue with supportive care. MMODL / IJN: [id number] /
[2019-12-09 06:50] LABS: Glucose,Whole Blood 114 mg/dL (75-99)
[2019-12-09] MEDS: VENLAFAXINE HCL ER 75 MG CAP PO SCH (07:57)
[2019-12-09] MEDS: PANTOPRAZOLE 40 MG TABLET PO SCH ×2 (07:57→21:04)
[2019-12-09] MEDS: MAGNESIUM OXIDE 400 MG TAB PO SCH (07:57)
[2019-12-09] MEDS: THIAMINE 100 MG TAB PO SCH (07:57)
[2019-12-09] MEDS: SPIRONOLACTONE 25 MG TAB PO SCH (07:58)
[2019-12-09] MEDS: LACTOBACILLUS ACIDOPH & BULGAR 1 EACH PACKET PO SCH ×2 (07:58→17:30)
[2019-12-09] MEDS: FERROUS SULFATE 325 MG TAB PO SCH (07:58)
[2019-12-09] MEDS: CHOLECALCIFEROL 1,000 UNIT TAB PO SCH (07:58)
[2019-12-09] MEDS: CLOPIDOGREL 75 MG TAB PO SCH (07:58)
[2019-12-09] MEDS: BRIMONIDINE TARTRATE 0.2% DROPS 5 ML BTL RIGHT EYE SCH ×2 (07:59→21:04)
[2019-12-09] MEDS: ASPIRIN 81 MG PO SCH (07:59)
[2019-12-09] MEDS: lisinopriL 5 MG TAB PO SCH (07:59)
[2019-12-09] MEDS: MULTIVITAMINS, THERA LIQUID 237 ML BOTTLE PO SCH (08:00)
[2019-12-09] MEDS: NON FORMULARY DRUG (Potassium [Potassium] 99 MG) PO SCH (08:00)
[2019-12-09] MEDS: PROCHLORPERAZINE 5 MG TAB PO SCH ×3 (08:01→21:17)
[2019-12-09] MEDS: INSULIN ASPART (NovoLOG) 100 UNIT/ML VIAL SQ SCH ×7 (08:03→21:15)
[2019-12-09] MEDS: HYDROCORTISONE SUCCINATE 100 MG/2 ML VIAL IV SCH ×3 (08:50→23:38)
[2019-12-09 09:16] LABS: Basophils % (A) 0 %; Eosinophils # (A) 0.1 k/uL (0-0.7); Eosinophils % (A) 2 %; HCT 36.8 % (34.0-46.0); HGB 11.8 gm/dL (11.4-16.0); Lymphocytes # (A) 1.5 k/uL (1.0-4.8); Lymphocytes % (A) 21 %; MCH 29.6 pg (25.0-35.0); MCHC 32.2 g/dL (31.0-37.0); MCV 91.9 fL (80.0-100.0); Mean Platelet Volume 9.3; Monocytes # (A) 0.4 k/uL (0-1.0); Monocytes % (A) 6 %; Neutrophils # (A) 4.8 k/uL (1.3-7.7); Neutrophils % (A) 70 %; Platelet Count 243 k/uL (150-450); RDW 13.9 % (11.5-15.5); WBC 6.8 k/uL (3.8-10.6)
[2019-12-09 09:32] LABS: African American GFR (CKD) >90 (>60 ml/min/1.73 sqM); Anion Gap 7 mmol/L; Blood Urea Nitrogen 16 mg/dL (7-17); Calcium 8.2 mg/dL (8.4-10.2); Carbon Dioxide 21 mmol/L (22-30); Chloride 112 mmol/L (98-107); Glucose 168 mg/dL (74-99); Non-African American GFR(CKD) >90 (>60 ml/min/1.73 sqM); Sodium 140 mmol/L (137-145)
[2019-12-09 09:37] LABS: Potassium 5.2 mmol/L (3.5-5.1)
[2019-12-09] MEDS: CHOLESTYRAMINE (WITH SUGAR) 4 GM PACKET PO SCH ×2 (10:20→21:04)
[2019-12-09 11:33] LABS: Glucose,Whole Blood 183 mg/dL (75-99)
--- NOTE | 2019-12-09 13:11 | P.PN ---
Subjective Progress Note Date: 12/09/19 CC 69-year-old female admitted with recurrent UTI, recent ESBL, E. coli with a history of multiple medical issues. Cultures reporting enterococcus faecium, VRE-low colony count, Irma albicans. Antibiotics adjusted, ertapenem discontinued and converted over to empiric daptomycin as per ID. follow up urine culture in progress. Denies chest pain, palpitations or shortness of breath. Afebrile, normal WBC. No nausea, no vomiting, no diarrhea. No abdominal pain. Denies headache, no lightheadedness, dizziness or focal deficits. Objective - Vital Signs Vital signs: Vital Signs Temp 98.4 F 12/09/19 07:00 Pulse 59 L 12/09/19 07:00 Resp 16 12/09/19 07:00 BP 163/87 12/09/19 07:00 Pulse Ox 96 12/09/19 07:00 Intake & Output 12/08/19 12/09/19 12/09/19 18:59 06:59 18:59 Intake Total 1650 Balance 1650 Intake: Intake, IV Titration 1650 Amount DAPTOmycin 300 mg In 50 Sodium Chloride 0.9% 50 ml @ 100 mls/hr IVPB HS [facility] Rx#:[id number] Sodium Chloride 0.9% 1, 1600 000 ml @ 50 mls/hr IV . Q20H [facility] Rx#:[id number] Other: Voiding Method Bedside Commode Bedside Commode Toilet Diaper Diaper Bedside Commode Incontinent Incontinent Incontinent # Voids 2 2 2 # Bowel Movements 2 - Exam PHYSICAL EXAM: VITAL SIGNS: As above GENERAL: Sitting up in bed, no acute distress HEENT: Conjunctivae normal. eyes normal. NECK: No JVD. No thyroid enlargement. No LNs CARDIOVASCULAR: S1, S2 regular. No murmur RESPIRATION: Breath sounds diminished in the bases. Occasional scattered rh onchi, no crackles. No bronchial breathing. ABDOMEN: Soft, nontender . No guarding. no masses palpable. No ascites, No hepatosplenomegaly.Bowel sounds heard. LEGS: No edema. no swelling PSYCHIATRY: Alert and oriented X3, mood and affect normal. NERVOUS SYSTEM: Cranial N 2-12 grossly normal. Moves all 4 limbs. Diffuse weakness No focal deficits. Strength and sensation grossly intact.. Skin: Warm and dry, no rash - Labs CBC & Chem 7: 12/09/19 08:09 12/09/19 08:09 Labs: Abnormal Lab Results - Last 24 Hours (Table) 12/08/19 12/08/19 12/09/19 Range/Units 16:34 20:18 02:22 Potassium (3.5-5.1) mmol/L Chloride (98-107) mmol/L Carbon Dioxide (22-30) mmol/L Glucose (74-99) mg/dL POC Glucose (mg/dL) 212 H 179 H (75-99) mg/dL Calcium (8.4-10.2) mg/dL Urine Appearance Turbid H (Clear) Urine Protein 1+ H (Negative) Urine RBC 19 H (0-5) /hpf Urine WBC 106 H (0-5) /hpf Urine Bacteria Rare H (None) /hpf Hyaline Casts 5 H (0-2) /lpf Urine Mucus Occasional H (None) /hpf Urine Yeast (Budding) Few H (None) /hpf 12/09/19 12/09/19 12/09/19 Range/Units 06:49 08:09 11:32 Potassium 5.2 H (3.5-5.1) mmol/L Chloride 112 H (98-107) mmol/L Carbon Dioxide 21 L (22-30) mmol/L Glucose 168 H (74-99) mg/dL POC Glucose (mg/dL) 114 H 183 H (75-99) mg/dL Calcium 8.2 L (8.4-10.2) mg/dL Urine Appearance (Clear) Urine Protein (Negative) Urine RBC (0-5) /hpf Urine WBC (0-5) /hpf Urine Bacteria (None) /hpf Hyaline Casts (0-2) /lpf Urine Mucus (None) /hpf Urine Yeast (Budding) (None) /hpf Microbiology - Last 24 Hours (Table) 12/09/19 02:22 Urine Culture - Preliminary Urine,Clean Catch 12/06/19 10:10 Urine Culture - Final Urine,Voided Enterococcus faecium VRE Irma albicans 12/06/19 12:04 Blood Culture - Preliminary Blood No Growth after 48 hours Assessment and Plan Assessment: Sepsis secondary to Acute UTI with enterococcus faecium VRE-Low colony count, Irma albicans, without fever or elevated WBC. Recent ESBL E. coli UTI Diabetes mellitus type 2, uncontrolled with hyperglycemia Adrenal insufficiency CAD At risk for readmission to hospital Plan: Continue on current medication regime ,monitoring and symptomatic treatment. Repeat urine culture in progress .Antibiotics as per ID. Discharge planning in progress for tomorrow pending ID clearance. Over the weekend patient was started on Dilaudid IV push which will be discontinued. No IV push pain medication, results in significant withdrawal headaches in this patient. Increase activity as tolerated, up in chair for all meals. The impression and plan of care has been dictated as directed. : I performed a history and examination of this patient, discussed the same with the dictator. I agree with the dictator's note ,documented as a scribe. Any additional findings or plans will be noted.
[2019-12-09 16:49] LABS: Glucose,Whole Blood 290 mg/dL (75-99)
[2019-12-09] MEDS ORDERED: FLUCONAZOLE 100 MG TAB PO ONE (17:45)
--- NOTE | 2019-12-09 18:44 | PN ---
PROGRESS NOTE DATE OF SERVICE: 12/09/2019 REASON FOR FOLLOWUP: Recurrent urinary tract infection. INTERVAL HISTORY: The patient is currently afebrile. The patient is breathing comfortably. The patient denies having any chest pain or shortness of breath or cough. Denies having any further nausea or vomiting. No abdominal pain or diarrhea. Urinary symptoms have improved. PHYSICAL EXAMINATION: Blood pressure 163/87 with a pulse of 71, temperature 98.6. She is 95% on room air. General description is an elderly female lying in bed in no distress. RESPIRATORY SYSTEM: Unlabored breathing. Clear to auscultation anteriorly. HEART: S1, S2. Regular rate and rhythm. ABDOMEN: Soft. No tenderness. LABS: Hemoglobin is 11.3, white count 6.8, BUN of 16, creatinine 0.54. DIAGNOSTIC IMPRESSION AND PLAN: Patient with recurrent urinary tract infection. Previous cultures were positive for ESBL E coli. They are now showing Enterococcus. Patient's antibiotic was adjusted to daptomycin yesterday. Repeat UA has been ordered. Slightly positive. Will wait for the repeat culture to finalize. May consider a 3-day course of IV daptomycin with no plan for IV antibiotic on discharge. Will also give a dose of Diflucan. MMODL / IJN: [id number] /
[2019-12-09 21:02] LABS: Glucose,Whole Blood 280 mg/dL (75-99)
[2019-12-09] MEDS: GABAPENTIN 100 MG CAP PO SCH (21:03)
[2019-12-09] MEDS: METOPROLOL SUCCINATE (ER) 50 MG TAB.ER.24H PO SCH (21:04)
[2019-12-09] MEDS: INSULIN DETEMIR (LEVEMIR) 100 UNIT/ML SYR SQ SCH (21:16)
[2019-12-10] MEDS: HYDROcodone/APAP 10-325MG 1 EACH TAB PO PRN ×2 (03:16→10:37)
[2019-12-10 06:47] LABS: Glucose,Whole Blood 81 mg/dL (75-99)
[2019-12-10] MEDS: INSULIN ASPART (NovoLOG) 100 UNIT/ML VIAL SQ SCH ×4 (07:14→12:50)
[2019-12-10 07:56] VITALS: BP 161/79; PULSE 69; RESP 18; TEMP 98.1
[2019-12-10] MEDS: FERROUS SULFATE 325 MG TAB PO SCH (08:01)
[2019-12-10] MEDS: PROCHLORPERAZINE 5 MG TAB PO SCH (08:01)
[2019-12-10] MEDS: ASPIRIN 81 MG PO SCH (08:01)
[2019-12-10] MEDS: THIAMINE 100 MG TAB PO SCH (08:01)
[2019-12-10] MEDS: CLOPIDOGREL 75 MG TAB PO SCH (08:01)
[2019-12-10] MEDS: lisinopriL 5 MG TAB PO SCH (08:01)
[2019-12-10] MEDS: VENLAFAXINE HCL ER 75 MG CAP PO SCH (08:01)
[2019-12-10] MEDS: MAGNESIUM OXIDE 400 MG TAB PO SCH (08:01)
[2019-12-10] MEDS: SPIRONOLACTONE 25 MG TAB PO SCH (08:01)
[2019-12-10] MEDS: PANTOPRAZOLE 40 MG TABLET PO SCH (08:01)
[2019-12-10] MEDS: MULTIVITAMINS, THERA LIQUID 237 ML BOTTLE PO SCH (08:03)
[2019-12-10] MEDS: CHOLECALCIFEROL 1,000 UNIT TAB PO SCH (08:03)
[2019-12-10] MEDS: HYDROCORTISONE SUCCINATE 100 MG/2 ML VIAL IV SCH ×2 (08:03→15:08)
[2019-12-10] MEDS: LACTOBACILLUS ACIDOPH & BULGAR 1 EACH PACKET PO SCH (08:05)
[2019-12-10] MEDS: BRIMONIDINE TARTRATE 0.2% DROPS 5 ML BTL RIGHT EYE SCH (08:10)
[2019-12-10 08:18] LABS: Basophils % (A) 0 %; Eosinophils % (A) 0 %; HCT 38.9 % (34.0-46.0); HGB 12.9 gm/dL (11.4-16.0); Lymphocytes # (A) 1.3 k/uL (1.0-4.8); Lymphocytes % (A) 19 %; MCH 30.2 pg (25.0-35.0); MCV 91.5 fL (80.0-100.0); Monocytes # (A) 0.3 k/uL (0-1.0); Monocytes % (A) 5 %; Neutrophils # (A) 5.3 k/uL (1.3-7.7); Neutrophils % (A) 75 %; Platelet Count 240 k/uL (150-450); RBC 4.25 m/uL (3.80-5.40); RDW 13.7 % (11.5-15.5)
[2019-12-10 08:53] LABS: African American GFR (CKD) >90 (>60 ml/min/1.73 sqM); Anion Gap 7 mmol/L; Blood Urea Nitrogen 11 mg/dL (7-17); Calcium 8.7 mg/dL (8.4-10.2); Carbon Dioxide 28 mmol/L (22-30); Chloride 103 mmol/L (98-107); Glucose 172 mg/dL (74-99); Non-African American GFR(CKD) >90 (>60 ml/min/1.73 sqM); Potassium 3.5 mmol/L (3.5-5.1); Sodium 138 mmol/L (137-145)
[2019-12-10] MEDS: SODIUM CHLORIDE 0.9% 1,000 ML IV SCH (09:36)
[2019-12-10] MEDS: CHOLESTYRAMINE (WITH SUGAR) 4 GM PACKET PO SCH (10:34)
[2019-12-10 11:26] LABS: Glucose,Whole Blood 122 mg/dL (75-99)
--- NOTE | 2019-12-10 11:27 | US ---
EXAMINATION TYPE: US venous doppler duplex UE LT DATE OF EXAM: 12/10/2019 COMPARISON: NONE CLINICAL HISTORY: r/t clot. left arm edema. Patient has a midline. SIDE PERFORMED: Left Left Arm: Negative for DVT as visualized. Limited visualization around dressing of midline. Extensive edema noted throughout. IMPRESSION: No evidence for DVT at this time.
--- NOTE | 2019-12-10 11:27 | PN ---
PROGRESS NOTE DATE OF SERVICE: 12/10/2019. REASON FOR FOLLOWUP: Urinary tract infection. INTERVAL HISTORY: Patient is currently afebrile. Patient is breathing comfortably. Denies any chest pain. No cough. No abdominal pain. Did have one episode of diarrhea. The left arm midline site did have some swelling. No pain. PHYSICAL EXAMINATION: Blood pressure is 151/79 with a pulse of 79, temperature 98.1. She is 97% on room air. General description: The patient is a middle-aged female lying in bed in no distress. Respiratory system: Unlabored breathing. Clear to auscultation anteriorly. Heart S1, S2. Regular rate and rhythm. ABDOMEN: Soft. No tenderness. LABS: White count 7.0. Creatinine 0.44. Repeat cultures currently pending. DIAGNOSTIC IMPRESSION AND PLAN: 1. Patient with recurrent urinary tract infection/last cultured with VRE. She will finish a 3 day course of daptomycin today. Dose can be earlier. No need for antibiotic on discharge. 2. Left arm IV site some swelling. Check a stat Doppler if negative for DVT or SVT. Midline should be discontinued. Plan of care was discussed with the nurse. MMODL / IJN: [id number] /
--- NOTE | 2019-12-10 15:25 | P.DS ---
Providers Date of admission: 12/06/19 13:14 Expected date of discharge: 12/10/19 Attending physician: Andrew Gonsales MD Consults: 12/06/19 13:19 Consult Physician Routine Consulting Provider: Chalino Osman Consult Reason/Comments: Urinary tract infection, antibiotic choice Do you want consulting provider notified?: Yes Primary care physician: Andrew Gonsales MD Hospital Course: Final Diagnoses: Sepsis secondary to Acute UTI with enterococcus faecium VRE-Low colony count, Irma albicans, without fever or elevated WBC. Repeat urine culture in progress Recent ESBL E. coli UTI Diabetes mellitus type 2, uncontrolled with hyperglycemia Adrenal insufficiency CAD At risk for readmission to hospital Hospital course: This is a pleasant 69-year-old female admitted with recurrent UTI, recent ESBL, E. coli with a history of multiple medical issues. Cultures reporting enterococcus faecium, VRE-low colony count, Irma albicans. Antibiotics adjusted, ertapenem discontinued and converted over to empiric daptomycin as per ID. follow up urine culture in progress. Denies chest pain, palpitations or shortness of breath. Afebrile, normal WBC. No nausea, no vomiting, no diarrhea. No abdominal pain. Denies headache, no lightheadedness, dizziness or focal deficits. Significant clinical improvement. Patient will be discharged home today pending final DC recommendations and clearance from infectious disease. The impression and plan of care has been dictated as directed. : I performed a history and examination of this patient, discussed the same with the dictator. I agree with the dictator's note ,documented as a scribe. Any additional findings or plans will be noted. Patient Condition at Discharge: Stable Plan - Discharge Summary Discharge Rx Participant: No New Discharge Prescriptions: New Cholestyramine (with Sugar) [Questran Packet] 4 gm PO BID@1000,1800 #14 packet Continue Cholecalciferol [Vitamin D3 (25 Mcg = 1000 Iu)] 3,000 unit PO DAILY@0700 Metoprolol Succinate (ER) [Toprol XL] 50 mg PO HS Meclizine [Antivert] 25 mg PO TID PRN PRN Reason: Vertigo Hydrocortisone [Cortef] 15 mg PO AC-BRKFST Hydrocortisone [Cortef] 5 mg PO HS Aspirin 81 mg PO DAILY #0 Glucagon Emergency Kit 1 mg IM ONCE PRN PRN Reason: Hypoglycemia Ferrous Sulfate [Iron (65 MG Elemental)] 325 mg PO DAILY Vitamin B-Complex Drops 1 drop PO BID Thiamine [Vitamin B-1] 100 mg PO DAILY Folic Acid 0.4 mg PO DAILY Multivitamins, Thera Liquid [Theragran Liquid (formulary)] 30 ml PO DAILY L.acidoph,Paracasei, B.lactis [Probiotic] 2 cap PO BID Melatonin 5 mg PO HS PRN PRN Reason: Insomnia Cranberry 300mg 300 mg PO BID Potassium 99 mg PO DAILY Lisinopril [Zestril] 15 mg PO DAILY Atorvastatin [Lipitor] 40 mg PO HS #30 tab HYDROcodone/APAP 10-325MG [[place] 10-325] 1 - 2 tab PO Q4H PRN PRN Reason: Pain Pantoprazole [Protonix] 40 mg PO BID Hydrocortisone [Cortef] 10 mg PO AC-LUNCH Insulin Aspart [NovoLOG Flexpen] 18 units SQ AC-LUNCH #0 Insulin Aspart [NovoLOG Flexpen] 14 units SQ AC-BRKFST Insulin Glargine,Hum.rec.anlog [Lantus Solostar] 26 unit SQ HS Venlafaxine HCl [Effexor XR] 75 mg PO DAILY Ertapenem [INVanz] 1 gm IVPB Q24H #14 vial Gabapentin [Neurontin] 200 mg PO HS Insulin Aspart [NovoLOG Flexpen] 22 units SQ AC-SUPPER Magnesium Oxide [Mag-Ox] 400 mg PO DAILY Methocarbamol [Robaxin-750] 750 mg PO TID PRN PRN Reason: Pain Promethazine 6.25MG/5Ml [Phenergan Syrup] 5 ml PO Q6H PRN PRN Reason: Cough Ondansetron HCl [Zofran] 4 mg PO Q6H PRN PRN Reason: Nausea And Vomiting Acetaminophen Tab [Tylenol] 1,000 mg PO Q6HR PRN PRN Reason: Migraine Headache Brimonidine Tartrate [Alphagan P 0.2% Ophth Soln] 1 drops RIGHT EYE BID Butalb/APAP/Caff 50-325-40Mg [Fioricet 50-325-40] 1 tab PO Q4H PRN PRN Reason: Migraine Headache Clopidogrel [Plavix] 75 mg PO DAILY Prochlorperazine [Compazine] 10 mg PO TID Spironolactone 25 mg PO DAILY Discharge Medication List Cholecalciferol [Vitamin D3 (25 Mcg = 1000 Iu)] 3,000 unit PO DAILY@0700 12/01/14 [History] Metoprolol Succinate (ER) [Toprol XL] 50 mg PO HS 07/06/17 [History] Meclizine [Antivert] 25 mg PO TID PRN 11/26/17 [History] Hydrocortisone [Cortef] 15 mg PO AC-BRKFST 05/18/18 [History] Hydrocortisone [Cortef] 5 mg PO HS 06/26/18 [History] Aspirin 81 mg PO DAILY #0 07/02/18 [Rx] Glucagon Emergency Kit 1 mg IM ONCE PRN 08/12/18 [History] Cranberry 300mg 300 mg PO BID 10/08/18 [History] Ferrous Sulfate [Iron (65 MG Elemental)] 325 mg PO DAILY 10/08/18 [History] Folic Acid 0.4 mg PO DAILY 10/08/18 [History] L.acidoph,Paracasei, B.lactis [Probiotic] 2 cap PO BID 10/08/18 [History] Melatonin 5 mg PO HS PRN 10/08/18 [History] Multivitamins, Thera Liquid [Theragran Liquid (formulary)] 30 ml PO DAILY 10/08/18 [History] Potassium 99 mg PO DAILY 10/08/18 [History] Thiamine [Vitamin B-1] 100 mg PO DAILY 10/08/18 [History] Vitamin B-Complex Drops 1 drop PO BID 10/08/18 [History] Lisinopril [Zestril] 15 mg PO DAILY 11/08/18 [History] Atorvastatin [Lipitor] 40 mg PO HS #30 tab 11/16/18 [Rx] HYDROcodone/APAP 10-325MG [[place] 10-325] 1 - 2 tab PO Q4H PRN 12/26/18 [History] Pantoprazole [Protonix] 40 mg PO BID 01/29/19 [History] Hydrocortisone [Cortef] 10 mg PO AC-LUNCH 08/30/19 [History] Insulin Aspart [NovoLOG Flexpen] 18 units SQ AC-LUNCH #0 09/24/19 [Rx] Insulin Aspart [NovoLOG Flexpen] 14 units SQ AC-BRKFST 10/28/19 [History] Insulin Glargine,Hum.rec.anlog [Lantus Solostar] 26 unit SQ HS 11/08/19 [History] Venlafaxine HCl [Effexor XR] 75 mg PO DAILY 11/08/19 [History] Ertapenem [INVanz] 1 gm IVPB Q24H #14 vial 11/30/19 [Rx] Acetaminophen Tab [Tylenol] 1,000 mg PO Q6HR PRN 12/06/19 [History] Brimonidine Tartrate [Alphagan P 0.2% Ophth Soln] 1 drops RIGHT EYE BID 12/06/19 [History] Butalb/APAP/Caff 50-325-40Mg [Fioricet 50-325-40] 1 tab PO Q4H PRN 12/06/19 [History] Clopidogrel [Plavix] 75 mg PO DAILY 12/06/19 [History] Gabapentin [Neurontin] 200 mg PO HS 12/06/19 [History] Insulin Aspart [NovoLOG Flexpen] 22 units SQ AC-SUPPER 12/06/19 [History] Magnesium Oxide [Mag-Ox] 400 mg PO DAILY 12/06/19 [History] Methocarbamol [Robaxin-750] 750 mg PO TID PRN 12/06/19 [History] Ondansetron HCl [Zofran] 4 mg PO Q6H PRN 12/06/19 [History] Prochlorperazine [Compazine] 10 mg PO TID 12/06/19 [History] Promethazine 6.25MG/5Ml [Phenergan Syrup] 5 ml PO Q6H PRN 12/06/19 [History] Spironolactone 25 mg PO DAILY 12/06/19 [History] Cholestyramine (with Sugar) [Questran Packet] 4 gm PO BID@1000,1800 #14 packet 12/10/19 [Rx] Follow up Appointment(s)/Referral(s): Andrew Gonsales MD [Primary Care Provider] - 12/13/19 2:45 pm Ambulatory/Diagnostic Orders: Complete Blood Count w/diff [LAB.AMB] Time Frame: 3 Days, Location: None Selected Patient Instructions/Handouts: Failure to Thrive (DC), Dehydration (DC), Urinary Tract Infection in Women (DC), Gastroenteritis (DC), Acute Diarrhea (GEN)
== END 2019-12-10 15:28 | disposition home health service (06) | DRG 872 ==
LOC: EC 10:07 → 4SSUR 13:14
PROVIDERS: ADMIT Family Medicine; ATTEND Family Medicine
DX: A41.81 Sepsis due to Enterococcus (principal); N39.0 Urinary tract infection, site not specified; Z16.21 Resistance to vancomycin; E27.40 Unspecified adrenocortical insufficiency; B95.2 Enterococcus as the cause of diseases classified elsewhere; E11.40 Type 2 diabetes mellitus with diabetic neuropathy, unspecified; E11.65 Type 2 diabetes mellitus with hyperglycemia; Z79.4 Long term (current) use of insulin; E78.5 Hyperlipidemia, unspecified; E86.0 Dehydration; I10 Essential (primary) hypertension; I25.10 Atherosclerotic heart disease of native coronary artery without angina pectoris; J42 Unspecified chronic bronchitis; K52.9 Noninfective gastroenteritis and colitis, unspecified; R62.7 Adult failure to thrive; M79.7 Fibromyalgia; G47.33 Obstructive sleep apnea (adult) (pediatric); Z99.89 Dependence on other enabling machines and devices; Z79.02 Long term (current) use of antithrombotics/antiplatelets; Z79.82 Long term (current) use of aspirin; Z79.899 Other long term (current) drug therapy; Z80.49 Family history of malignant neoplasm of other genital organs; Z82.49 Family history of ischemic heart disease and other diseases of the circulatory system; Z83.3 Family history of diabetes mellitus; Z82.3 Family history of stroke; Z83.6 Family history of other diseases of the respiratory system; Z87.440 Personal history of urinary (tract) infections; Z87.442 Personal history of urinary calculi; Z87.01 Personal history of pneumonia (recurrent); Z86.718 Personal history of other venous thrombosis and embolism; Z88.1 Allergy status to other antibiotic agents; Z88.5 Allergy status to narcotic agent; Z88.2 Allergy status to sulfonamides; Z88.8 Allergy status to other drugs, medicaments and biological substances; Z89.421 Acquired absence of other right toe(s); Z86.14 Personal history of Methicillin resistant Staphylococcus aureus infection; E21.3 Hyperparathyroidism, unspecified; M15.9 Polyosteoarthritis, unspecified; Z90.49 Acquired absence of other specified parts of digestive tract; Z90.710 Acquired absence of both cervix and uterus; Z98.1 Arthrodesis status; Z98.42 Cataract extraction status, left eye; Z98.41 Cataract extraction status, right eye
CPT/HCPCS: 36415; 74018; 80048; 80053; 81001; 82009; 82150; 82550; 83605; 83690; 84484; 85025; 87040; 87077; 87086; 87186; 96361; 96374; 99285

== ENCOUNTER 2019-12-30 16:09 | Inpatient (IN) | payer MEDICARE, BC ==
[2019-12-30] MEDS ORDERED: HYDROmorphone 0.5 MG/0.5 ML SYRINGE IVP STA (16:27)
[2019-12-30 17:11] LABS: Basophils # (A) 0.1 k/uL (0-0.2); Basophils % (A) 1 %; Eosinophils # (A) 0.3 k/uL (0-0.7); Eosinophils % (A) 3 %; HGB 14.9 gm/dL (11.4-16.0); Lymphocytes # (A) 3.3 k/uL (1.0-4.8); Lymphocytes % (A) 34 %; MCH 28.5 pg (25.0-35.0); MCHC 31.7 g/dL (31.0-37.0); MCV 89.6 fL (80.0-100.0); Monocytes # (A) 0.7 k/uL (0-1.0); Monocytes % (A) 7 %; Neutrophils # (A) 5.3 k/uL (1.3-7.7); Neutrophils % (A) 54 %; Platelet Count 291 k/uL (150-450); RBC 5.24 m/uL (3.80-5.40); RDW 14.1 % (11.5-15.5); WBC 9.7 k/uL (3.8-10.6)
[2019-12-30 17:20] LABS: Albumin 4.1 g/dL (3.5-5.0); Calcium 9.8 mg/dL (8.4-10.2); Magnesium 1.6 mg/dL (1.6-2.3); Total Bilirubin 0.7 mg/dL (0.2-1.3); Total Protein 6.1 g/dL (6.3-8.2)
[2019-12-30 17:30] LABS: Prothrombin Time 10.1 sec (9.0-12.0)
[2019-12-30 17:34] LABS: Partial Thromboplastin Time 20.5 sec (22.0-30.0)
[2019-12-30 17:39] LABS: Appearance,Urine Cloudy (Clear); Bacteria,Urine Rare /hpf; Bilirubin,Urine Negative (Negative); Blood,Urine Moderate (Negative); Color,Urine Yellow; Glucose,Urine (UA) Negative (Negative); Hyaline Casts,Urine 126 /lpf (0-2); Ketones,Urine 1+ (Negative); Leukocyte Esterase,Urine Large (Negative); Mucus,Urine Few /hpf; Nitrite,Urine Negative (Negative); PH, Urine 5.5 (5.0-8.0); Protein,Urine 1+ (Negative); RBC,Urine 14 /hpf (0-5); Squamous Epithelial Cell,Urine 12 /hpf (0-4); WBC,Urine >182 /hpf (0-5)
--- NOTE | 2019-12-30 17:47 | XR ---
EXAMINATION TYPE: XR chest 2V DATE OF EXAM: 12/30/2019 COMPARISON: Chest x-ray November 08, 2019. HISTORY: History of COPD with weakness. TECHNIQUE: Frontal and lateral views of the chest are obtained. FINDINGS: There is chronic parenchyma changes without suspicious new focal air space opacity, pleura l effusion, or pneumothorax seen. Slightly elevated and eventrated posterior aspect right hemidiaphr agm. The cardiac silhouette size is enlarged with atherosclerotic and ectatic aorta. The osseous st ructures are demineralized. Mild chronic type compression fractures upper thoracic spine noted. IMPRESSION: Chronic changes and cardiomegaly without new acute pulmonary process.
[2019-12-30] MEDS ORDERED: ERTAPENEM 1 GM in SODIUM CHLORIDE 0.9% 50 ML IVPB STA (19:00)
--- NOTE | 2019-12-30 19:00 | ED ---
General Adult HPI - General Chief complaint: Weakness Stated complaint: UTI Time Seen by Provider: 12/30/19 16:18 Source: patient Mode of arrival: wheelchair Limitations: physical limitation - History of Present Illness Initial comments: 69-year-old female patient presents to the emergency department today for evaluation of generalized weakness and just feeling unwell. Patient states she has been nauseated but has not vomited. States that she is having a lot of difficulty ambulating. States that she did see her primary care physician and was sent here for further evaluation. 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 Patient recently completed IV infusions about 3 weeks ago. Patient states she is having urinary urgency and frequency as well as d ysuria. Denies any hematuria. Patient is reporting headache, denies any recent head injury, states that she does have history of headaches. She denies any dizziness, blurred vision, or double vision. Denies numbness, tingling, or focal weakness to her extremities. Patient denies any recent rash, fever, chills, cough, shortness of breath, chest pain, abdominal pain, diarrhea, constipation, numbness, tingling, dizziness, weakness, headache, visual changes, or any other complaints. - Related Data Home Medications Medication Instructions Recorded Confirmed Cholecalciferol [Vitamin D3 (25 3,000 unit PO DAILY@0700 12/01/14 12/06/19 Mcg = 1000 Iu)] Metoprolol Succinate (ER) [Toprol 50 mg PO HS 07/06/17 12/06/19 XL] Meclizine [Antivert] 25 mg PO TID PRN 11/26/17 12/06/19 Hydrocortisone [Cortef] 15 mg PO AC-BRKFST 05/18/18 12/06/19 Hydrocortisone [Cortef] 5 mg PO HS 06/26/18 12/06/19 Glucagon Emergency Kit 1 mg IM ONCE PRN 08/12/18 12/06/19 Cranberry 300mg 300 mg PO BID 10/08/18 12/06/19 Ferrous Sulfate [Iron (65 MG 325 mg PO DAILY 10/08/18 12/06/19 Elemental)] Folic Acid 0.4 mg PO DAILY 10/08/18 12/06/19 L.acidoph,Paracasei, B.lactis 2 cap PO BID 10/08/18 12/06/19 [Probiotic] Melatonin 5 mg PO HS PRN 10/08/18 12/06/19 Multivitamins, Thera Liquid 30 ml PO DAILY 10/08/18 12/06/19 [Theragran Liquid (formulary)] Potassium 99 mg PO DAILY 10/08/18 12/06/19 Thiamine [Vitamin B-1] 100 mg PO DAILY 10/08/18 12/06/19 Vitamin B-Complex Drops 1 drop PO BID 10/08/18 12/06/19 Lisinopril [Zestril] 15 mg PO DAILY 11/08/18 12/06/19 HYDROcodone/APAP 10-325MG [[place] 1 - 2 tab PO Q4H PRN 12/26/18 12/06/19 10-325] Pantoprazole [Protonix] 40 mg PO BID 01/29/19 12/06/19 Hydrocortisone [Cortef] 10 mg PO AC-LUNCH 08/30/19 12/06/19 Insulin Aspart [NovoLOG Flexpen] 14 units SQ AC-BRKFST 10/28/19 12/06/19 Insulin Glargine,Hum.rec.anlog 26 unit SQ HS 11/08/19 12/06/19 [Lantus Solostar] Venlafaxine HCl [Effexor XR] 75 mg PO DAILY 11/08/19 12/06/19 Acetaminophen Tab [Tylenol] 1,000 mg PO Q6HR PRN 12/06/19 12/06/19 Brimonidine Tartrate [Alphagan P 1 drops RIGHT EYE BID 12/06/19 12/06/19 0.2% Ophth Soln] Butalb/APAP/Caff 50-325-40Mg 1 tab PO Q4H PRN 12/06/19 12/06/19 [Fioricet 50-325-40] Clopidogrel [Plavix] 75 mg PO DAILY 12/06/19 12/06/19 Gabapentin [Neurontin] 200 mg PO HS 12/06/19 12/06/19 Insulin Aspart [NovoLOG Flexpen] 22 units SQ AC-SUPPER 12/06/19 12/06/19 Magnesium Oxide [Mag-Ox] 400 mg PO DAILY 12/06/19 12/06/19 Methocarbamol [Robaxin-750] 750 mg PO TID PRN 12/06/19 12/06/19 Ondansetron HCl [Zofran] 4 mg PO Q6H PRN 12/06/19 12/06/19 Prochlorperazine [Compazine] 10 mg PO TID 12/06/19 12/06/19 Promethazine 6.25MG/5Ml [Phenergan 5 ml PO Q6H PRN 12/06/19 12/06/19 Syrup] Spironolactone 25 mg PO DAILY 12/06/19 12/06/19 Previous Rx's Medication Instructions Recorded Aspirin 81 mg PO DAILY #0 07/02/18 Atorvastatin [Lipitor] 40 mg PO HS #30 tab 11/16/18 Insulin Aspart [NovoLOG Flexpen] 18 units SQ AC-LUNCH #0 09/24/19 Ertapenem [INVanz] 1 gm IVPB Q24H #14 vial 11/30/19 Cholestyramine (with Sugar) 4 gm PO BID@1000,1800 #14 packet 12/10/19 [Questran Packet] Allergies Allergy/AdvReac Type Severity Reaction Status Date / Time butorphanol tartrate Allergy BLISTERS Verified 12/30/19 19:35 [From Stadol] IN MOUTH ceftriaxone [From Rocephin] Allergy Unknown Verified 12/30/19 19:35 clarithromycin [From Biaxin] Allergy Rash/Hives Verified 12/30/19 19:35 codeine Allergy Rash/Hives Verified 12/30/19 19:35 ergotamine tartrate Allergy Unknown Verified 12/30/19 19:35 [From Cafergot] erythromycin base Allergy RASH, GI Verified 12/30/19 19:35 [From E-Mycin] SYMPTOMS ketorolac tromethamine Allergy Rash/Hives Verified 12/30/19 19:35 [From Toradol] liraglutide [From Victoza] Allergy Rash/Hives Verified 12/30/19 19:35 morphine Allergy Rash/Hives Verified 12/30/19 19:35 Penicillins Allergy Rash/Hives Verified 12/30/19 19:35 pentazocine lactate Allergy SEVERE Verified 12/30/19 19:35 [From Talwin] BLISTERS IN MOUTH pregabalin [From Lyrica] Allergy Rash/Hives Verified 12/30/19 19:35 propoxyphene HCl Allergy Rash/Hives Verified 12/30/19 19:35 [From Darvon] Sulfa (Sulfonamide Allergy Rash/Hives Verified 12/30/19 19:35 Antibiotics) tramadol Allergy Unknown Verified 12/30/19 19:35 monosodium glutamate [MSG] AdvReac Nausea & Verified 12/30/19 19:35 Vomiting nalbuphine HCl [From Nubain] AdvReac Nausea & Verified 12/30/19 19:35 Vomiting Review of Systems ROS Statement: Those systems with pertinent positive or pertinent negative responses have been documented in the HPI. ROS Other: All systems not noted in ROS Statement are negative. Past Medical History Past Medical History: Diabetes Mellitus, Deep Vein Thrombosis (DVT), Fibromyalgia, Hyperlipidemia, Hypertension, Osteoarthritis (OA), Pneumonia, Renal Disease, Sleep Apnea/CPAP/BIPAP, Vascular Disorder Additional Past Medical History / Comment(s): Pt recently admitted to [facility] on 11/28/19 with recurerent UTI. 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, DV T R calf in 1976, cardiac murmur, occipital neuraligia, balance issues-has narrowing of vessels "in the back of my head", vertigo, varicosities, states rt shoulder torn rotator cuff History of Any Multi-Drug Resistant Organisms: ESBL, MRSA, VRE Date of last positivie culture/infection: 11/09/19 ESBL; 03/10/11 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 MDRO Source:: ESBL URINE; MRSA 4th rt TOE VRE URINE Past Surgical History: Appendectomy, Back Surgery, Bladder Surgery, Breast Surgery, Cholecystectomy, Heart Catheterization, Hysterectomy, Orthopedic Surgery, Tonsillectomy Additional Past Surgical History / Comment(s): Lumbar fusions, bladder suspension, occipital nerve blocks, 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, R wrist/elbow nerve repair, bone removed R shoulder, 4th toe R foot partial am putation, bilateral feet/bunionectomies, R knee arthroscopies, R orbit decompression with ethmoidectomy and eyelid lift, EGD, colonoscopies, cystocopies, lithotripsy/stents, bilateral breast reduction, bilateral cataract removals, parathyroid surgery - April 2019, pain clinic procedures Past Anesthesia/Blood Transfusion Reactions: No Reported Reaction Additional Past Anesthesia/Blood Transfusion Reaction / Comment(s): never recieved blood Past Psychological History: No Psychological Hx Reported Past Alcohol Use History: None Reported Past Drug Use History: None Reported - Past Family History Father Family Medical History: Coronary Artery Disease (CAD), CVA/TIA, Diabetes Mellitus, Myocardial Infarction ([place]), Pneumonia Additional Family Medical History / Comment(s): Father at the age of 78yrs from [place] and pneumonia. Mother Family Medical History: Cancer Additional Family Medical History / Comment(s): Mother had uterine cancer. She recently at the age of 96yrs old from [employer]. General Exam Limitations: physical limitation General appearance: alert, in no apparent distress, other (This is a well- developed, well-nourished elderly female patient in no acute distress. Vital signs upon presentation are temperature 98.3F, pulse 122, respirations 18, blood pressure 103/60, pulse ox 93% on room air.) Eye exam: Present: normal appearance, PERRL, EOMI. Absent: scleral icterus, conjunctival injection, periorbital swelling ENT exam: Present: normal exam, normal oropharynx, mucous membranes moist Respiratory exam: Present: normal lung sounds bilaterally. Absent: respiratory distress, wheezes, rales, rhonchi, stridor Cardiovascular Exam: Present: normal rhythm, tachycardia, normal heart sounds. Absent: systolic murmur, diastolic murmur, rubs, gallop, clicks GI/Abdominal exam: Present: soft, normal bowel sounds. Absent: distended, tenderness, guarding, rebound, rigid Neurological exam: Present: alert, oriented X3, CN II-XII intact Psychiatric exam: Present: normal affect, normal mood Skin exam: Present: warm, dry, intact, normal color. Absent: rash Course Vital Signs 12/30/19 12/30/19 12/30/19 16:11 18:06 19:11 Temperature 98.3 F 98 F Pulse Rate 122 H 116 H Respiratory 18 20 18 Rate Blood Pressure 103/60 102/90 O2 Sat by Pulse 93 L 96 Oximetry EKG Findings - EKG Comments: EKG Findings:: EKG obtained at 1708 shows sinus tachycardia with PACs. Ventricular rate is 117, FL interval 134, QRS duration 70, QT 314, QTC 438. No evidence of ST elevation or depression. Medical Decision Making - Medical Decision Making 69-year-old female patient with past medical history significant for frequent urinary tract infections presents to the emergency department today for evaluation of generalized weakness, nausea, and dysuria. Physical examination reveals a soft nontender abdomen. She has no CVA tenderness. She is neurologically intact with no focal deficits. Labs reviewed and did reveal normal white blood cell count. She did have urinalysis positive for infection. She'll be admitted to the hospital for IV antibiotics, infectious disease will be consulted. Patient is agreeable with this plan. - Lab Data Result diagrams: 12/30/19 16:55 12/30/19 16:55 Lab Results 12/30/19 12/30/19 12/30/19 Range/Units 16:55 16:55 16:55 WBC 9.7 (3.8-10.6) k/uL RBC 5.24 (3.80-5.40) m/uL Hgb 14.9 (11.4-16.0) gm/dL Hct 47.0 H (34.0-46.0) % MCV 89.6 (80.0-100.0) fL MCH 28.5 (25.0-35.0) pg MCHC 31.7 (31.0-37.0) g/dL RDW 14.1 (11.5-15.5) % Plt Count 291 (150-450) k/uL Neutrophils % 54 % Lymphocytes % 34 % Monocytes % 7 % Eosinophils % 3 % Basophils % 1 % Neutrophils # 5.3 (1.3-7.7) k/uL Lymphocytes # 3.3 (1.0-4.8) k/uL Monocytes # 0.7 (0-1.0) k/uL Eosinophils # 0.3 (0-0.7) k/uL Basophils # 0.1 (0-0.2) k/uL PT 10.1 (9.0-12.0) sec INR 1.0 (<1.2) APTT 20.5 L (22.0-30.0) sec Sodium 135 L (137-145) mmol/L Potassium 4.0 (3.5-5.1) mmol/L Chloride 102 (98-107) mmol/L Carbon Dioxide 23 (22-30) mmol/L Anion Gap 10 mmol/L BUN 13 (7-17) mg/dL Creatinine 0.90 (0.52-1.04) mg/dL Est GFR (CKD-EPI)AfAm 75 (>60 ml/min/1.73 sqM) Est GFR (CKD-EPI)NonAf 65 (>60 ml/min/1.73 sqM) Glucose 186 H (74-99) mg/dL Lactic Ac Sepsis Rflx Plasma Lactic Acid Sudhir (0.7-2.0) mmol/L Calcium 9.8 (8.4-10.2) mg/dL Magnesium 1.6 (1.6-2.3) mg/dL Total Bilirubin 0.7 (0.2-1.3) mg/dL AST 22 (14-36) U/L ALT 13 (4-34) U/L Alkaline Phosphatase 70 (38-126) U/L Troponin I (0.000-0.034) ng/mL Total Protein 6.1 L (6.3-8.2) g/dL Albumin 4.1 (3.5-5.0) g/dL Urine Color Urine Appearance (Clear) Urine pH (5.0-8.0) Ur Specific [place] (1.001-1.035) Urine Protein (Negative) Urine Glucose (UA) (Negative) Urine Ketones (Negative) Urine Blood (Negative) Urine Nitrite (Negative) Urine Bilirubin (Negative) Urine Urobilinogen (<2.0) mg/dL Ur Leukocyte Esterase (Negative) Urine RBC (0-5) /hpf Urine WBC (0-5) /hpf Ur Squamous Epith Cells (0-4) /hpf Urine Bacteria (None) /hpf Hyaline Casts (0-2) /lpf Urine Mucus (None) /hpf 12/30/19 12/30/19 12/30/19 Range/Units 16:55 16:55 17:17 WBC (3.8-10.6) k/uL RBC (3.80-5.40) m/uL Hgb (11.4-16.0) gm/dL Hct (34.0-46.0) % MCV (80.0-100.0) fL MCH (25.0-35.0) pg MCHC (31.0-37.0) g/dL RDW (11.5-15.5) % Plt Count (150-450) k/uL Neutrophils % % Lymphocytes % % Monocytes % % Eosinophils % % Basophils % % Neutrophils # (1.3-7.7) k/uL Lymphocytes # (1.0-4.8) k/uL Monocytes # (0-1.0) k/uL Eosinophils # (0-0.7) k/uL Basophils # (0-0.2) k/uL PT (9.0-12.0) sec INR (<1.2) APTT (22.0-30.0) sec Sodium (137-145) mmol/L Potassium (3.5-5.1) mmol/L Chloride (98-107) mmol/L Carbon Dioxide (22-30) mmol/L Anion Gap mmol/L BUN (7-17) mg/dL Creatinine (0.52-1.04) mg/dL Est GFR (CKD-EPI)AfAm (>60 ml/min/1.73 sqM) Est GFR (CKD-EPI)NonAf (>60 ml/min/1.73 sqM) Glucose (74-99) mg/dL Lactic Ac Sepsis Rflx Plasma Lactic Acid Sudhir 2.4 H* (0.7-2.0) mmol/L Calcium (8.4-10.2) mg/dL Magnesium (1.6-2.3) mg/dL Total Bilirubin (0.2-1.3) mg/dL AST (14-36) U/L ALT (4-34) U/L Alkaline Phosphatase (38-126) U/L Troponin I 0.017 (0.000-0.034) ng/mL Total Protein (6.3-8.2) g/dL Albumin (3.5-5.0) g/dL Urine Color Yellow Urine Appearance Cloudy H (Clear) Urine pH 5.5 (5.0-8.0) Ur Specific [place] 1.050 H (1.001-1.035) Urine Protein 1+ H (Negative) Urine Glucose (UA) Negative (Negative) Urine Ketones 1+ H (Negative) Urine Blood Moderate H (Negative) Urine Nitrite Negative (Negative) Urine Bilirubin Negative (Negative) Urine Urobilinogen 2.0 (<2.0) mg/dL Ur Leukocyte Esterase Large H (Negative) Urine RBC 14 H (0-5) /hpf Urine WBC >182 H (0-5) /hpf Ur Squamous Epith Cells 12 H (0-4) /hpf Urine Bacteria Rare H (None) /hpf Hyaline Casts 126 H (0-2) /lpf Urine Mucus Few H (None) /hpf 12/30/19 Range/Units 17:31 WBC (3.8-10.6) k/uL RBC (3.80-5.40) m/uL Hgb (11.4-16.0) gm/dL Hct (34.0-46.0) % MCV (80.0-100.0) fL MCH (25.0-35.0) pg MCHC (31.0-37.0) g/dL RDW (11.5-15.5) % Plt Count (150-450) k/uL Neutrophils % % Lymphocytes % % Monocytes % % Eosinophils % % Basophils % % Neutrophils # (1.3-7.7) k/uL Lymphocytes # (1.0-4.8) k/uL Monocytes # (0-1.0) k/uL Eosinophils # (0-0.7) k/uL Basophils # (0-0.2) k/uL PT (9.0-12.0) sec INR (<1.2) APTT (22.0-30.0) sec Sodium (137-145) mmol/L Potassium (3.5-5.1) mmol/L Chloride (98-107) mmol/L Carbon Dioxide (22-30) mmol/L Anion Gap mmol/L BUN (7-17) mg/dL Creatinine (0.52-1.04) mg/dL Est GFR (CKD-EPI)AfAm (>60 ml/min/1.73 sqM) Est GFR (CKD-EPI)NonAf (>60 ml/min/1.73 sqM) Glucose (74-99) mg/dL Lactic Ac Sepsis Rflx Y Plasma Lactic Acid Sudhir (0.7-2.0) mmol/L Calcium (8.4-10.2) mg/dL Magnesium (1.6-2.3) mg/dL Total Bilirubin (0.2-1.3) mg/dL AST (14-36) U/L ALT (4-34) U/L Alkaline Phosphatase (38-126) U/L Troponin I (0.000-0.034) ng/mL Total Protein (6.3-8.2) g/dL Albumin (3.5-5.0) g/dL Urine Color Urine Appearance (Clear) Urine pH (5.0-8.0) Ur Specific [place] (1.001-1.035) Urine Protein (Negative) Urine Glucose (UA) (Negative) Urine Ketones (Negative) Urine Blood (Negative) Urine Nitrite (Negative) Urine Bilirubin (Negative) Urine Urobilinogen (<2.0) mg/dL Ur Leukocyte Esterase (Negative) Urine RBC (0-5) /hpf Urine WBC (0-5) /hpf Ur Squamous Epith Cells (0-4) /hpf Urine Bacteria (None) /hpf Hyaline Casts (0-2) /lpf Urine Mucus (None) /hpf - Radiology Data Radiology results: report reviewed, image reviewed Two-view x-ray of the chest is obtained. Report is reviewed in its entirety. Impression by Dr. Juan shows chronic changes and cardiomegaly without acute new acute pulmonary process. Disposition Clinical Impression: Urinary tract infection, Weakness Disposition: ADMITTED IP TO THIS [facility] Condition: Serious Decision to Admit Reason: Admit from EC Decision Date: 12/30/19 Decision Time: 19:00
[2019-12-30] MEDS ORDERED: NALOXONE 0.4 MG/ML 1 ML VIAL IV PRN (19:01)
[2019-12-30] MEDS: SODIUM CHLORIDE 0.9% 1,000 ML IV SCH (19:41)
[2019-12-30] MEDS: ONDANSETRON 4 MG/2 ML VIAL IVP PRN (20:55)
[2019-12-30 21:08] LABS: Glucose,Whole Blood 187 mg/dL (75-99)
[2019-12-30] MEDS: HYDROmorphone 0.5 MG/0.5 ML SYRINGE IVP PRN (21:11)
[2019-12-31] MEDS: HYDROmorphone 0.5 MG/0.5 ML SYRINGE IVP PRN ×6 (01:17→21:32)
[2019-12-31] MEDS: ONDANSETRON 4 MG/2 ML VIAL IVP PRN ×3 (04:52→23:51)
[2019-12-31 06:43] LABS: Glucose,Whole Blood 181 mg/dL (75-99)
[2019-12-31] MEDS: HYDROCORTISONE 10 MG TAB PO SCH ×3 (09:25→20:33)
[2019-12-31] MEDS: CLOPIDOGREL 75 MG TAB PO SCH (09:25)
[2019-12-31] MEDS: ASPIRIN 81 MG PO SCH (09:25)
[2019-12-31] MEDS: PANTOPRAZOLE 40 MG TABLET PO SCH ×2 (09:26→17:35)
[2019-12-31] MEDS: SPIRONOLACTONE 25 MG TAB PO SCH (09:26)
[2019-12-31] MEDS: VENLAFAXINE HCL ER 75 MG CAP PO SCH (09:26)
[2019-12-31] MEDS: MAGNESIUM OXIDE 400 MG TAB PO SCH (09:26)
[2019-12-31 11:46] LABS: Glucose,Whole Blood 165 mg/dL (75-99)
[2019-12-31] MEDS: INSULIN ASPART (NovoLOG) 100 UNIT/ML VIAL SQ SCH ×3 (11:56→20:34)
--- NOTE | 2019-12-31 14:40 | P.HPIM ---
History of Present Illness H&P Date: 12/31/19 Chief Complaint: weakness, malaise Melissa Pena is a 69 yo F with PMH of recent UTI growing ESBL E coli requiring ertapenem course completed last month, T2DM, adrenal insufficiency, migraine, HTN who presented to the ED with a 3 day course of worsening weakness, unsteadiness and decreased appetite. She was seen in her PCP office and recommended to present to the ED for further evaluation. She does complain of dysuria, urinary frequency and urgency. Pt denies fever or chills. On presentation she was tachycardic, WBC 9.7, lactic 2.4, UA with 4+ LE and positive for bacteria. Review of Systems All systems: negative Constitutional: Reports malaise, Reports weakness, Denies chills, Denies fever Eyes: denies blurred vision, denies pain Ears, nose, mouth and throat: Denies headache, Denies sore throat Cardiovascular: Denies chest pain, Denies shortness of breath Respiratory: Denies cough Gastrointestinal: Denies abdominal pain, Denies diarrhea, Denies nausea, Denies vomiting Genitourinary: Reports dysuria, Reports urgency, Denies hematuria Musculoskeletal: Reports muscle weakness, Denies myalgias Integumentary: Denies pruritus, Denies rash Neurological: Denies numbness, Denies weakness Psychiatric: Denies anxiety, Denies depression Endocrine: Denies fatigue, Denies weight change Past Medical History Past Medical History: Diabetes Mellitus, Deep Vein Thrombosis (DVT), Fibromyalgi a, Hyperlipidemia, Hypertension, Osteoarthritis (OA), Pneumonia, Renal Disease, Sleep Apnea/CPAP/BIPAP, Vascular Disorder Additional Past Medical History / Comment(s): Pt recently admitted to [facility] on 11/28/19 with recurerent UTI. 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, DVT R calf in 1976, cardiac murmur, occipital neuraligia, balance issues-has narrowing of vessels "in the back of my head", vertigo, varicosities, states rt shoulder torn rotator cuff History of Any Multi-Drug Resistant Organisms: ESBL, MRSA, VRE Date of last positivie culture/infection: 11/09/19 ESBL; 03/10/11 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 MDRO Source:: ESBL URINE; MRSA 4th rt TOE VRE URINE Past Surgical History: Appendectomy, Back Surgery, Bladder Surgery, Breast Surgery, Cholecystectomy, Heart Catheterization, Hysterectomy, Orthopedic Surgery, Tonsillectomy Additional Past Surgical History / Comment(s): Lumbar fusions, bladder suspension, occipital nerve blocks, 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, R wrist/elbow nerve repair, bone removed R shoulder, 4th toe R foot partial amputation, bilateral feet/bunionectomies, R knee arthroscopies, R orbit decompression with ethmoidectomy and eyelid lift, EGD, colonoscopies, cystocopies, lithotripsy/stents, bilateral breast reduction, bilateral cataract removals, parathyroid surgery - April 2019, pain clinic procedures Past Anesthesia/Blood Transfusion Reactions: No Reported Reaction Additional Past Anesthesia/Blood Transfusion Reaction / Comment(s): never recieved blood Past Psychological History: No Psychological Hx Reported Past Alcohol Use History: None Reported Past Drug Use History: None Reported - Past Family History Father Family Medical History: Coronary Artery Disease (CAD), CVA/TIA, Diabetes Mellitus, Myocardial Infarction ([place]), Pneumonia Additional Family Medical History / Comment(s): Father at the age of 78yrs from [place] and pneumonia. Mother Family Medical History: Cancer Additional Family Medical History / Comment(s): Mother had uterine cancer. She recently at the age of 96yrs old from [employer]. Medications and Allergies Home Medications Medication Instructions Recorded Confirmed Type Cholecalciferol [Vitamin D3 (25 3,000 unit PO DAILY@0700 12/01/14 12/30/19 History Mcg = 1000 Iu)] Metoprolol Succinate (ER) [Toprol 50 mg PO HS 07/06/17 12/30/19 History XL] Meclizine [Antivert] 25 mg PO QID PRN 11/26/17 12/30/19 History Hydrocortisone [Cortef] 15 mg PO AC-BRKFST 05/18/18 12/30/19 History Hydrocortisone [Cortef] 5 mg PO HS 06/26/18 12/30/19 History Aspirin 81 mg PO DAILY #0 07/02/18 12/30/19 Rx Glucagon Emergency Kit 1 mg IM ONCE PRN 08/12/18 12/30/19 History Cranberry 300mg 300 mg PO BID 10/08/18 12/30/19 History Ferrous Sulfate [Iron (65 MG 325 mg PO DAILY 10/08/18 12/30/19 History Elemental)] Folic Acid 0.4 mg PO DAILY 10/08/18 12/30/19 History L.acidoph,Paracasei, B.lactis 2 cap PO BID 10/08/18 12/30/19 History [Probiotic] Melatonin 5 mg PO HS PRN 10/08/18 12/30/19 History Multivitamins, Thera Liquid 30 ml PO DAILY 10/08/18 12/30/19 History [Theragran Liquid (formulary)] Potassium 99 mg PO DAILY 10/08/18 12/30/19 History Thiamine [Vitamin B-1] 100 mg PO DAILY 10/08/18 12/30/19 History Vitamin B-Complex Drops 1 ml PO BID 10/08/18 12/30/19 History Lisinopril [Zestril] 20 mg PO W/BRKFST 11/08/18 12/30/19 History Atorvastatin [Lipitor] 40 mg PO HS #30 tab 11/16/18 12/30/19 Rx HYDROcodone/APAP 10-325MG [[place] 1 - 2 tab PO Q4-6H PRN 12/26/18 12/30/19 History 10-325] Pantoprazole [Protonix] 40 mg PO BID 01/29/19 12/30/19 History Hydrocortisone [Cortef] 10 mg PO AC-LUNCH 08/30/19 12/30/19 History Insulin Aspart [NovoLOG Flexpen] 18 units SQ AC-LUNCH #0 09/24/19 12/30/19 Rx Insulin Aspart [NovoLOG Flexpen] 14 units SQ AC-BRKFST 10/28/19 12/30/19 History Insulin Glargine,Hum.rec.anlog 26 unit SQ HS@2200 11/08/19 12/30/19 History [Lantus Solostar] Venlafaxine HCl [Effexor XR] 75 mg PO DAILY 11/08/19 12/30/19 History Acetaminophen Tab [Tylenol] 1,000 mg PO Q6HR PRN 12/06/19 12/30/19 History Butalb/APAP/Caff 50-325-40Mg 1 tab PO QID PRN 12/06/19 12/30/19 History [Fioricet 50-325-40] Clopidogrel [Plavix] 75 mg PO DAILY 12/06/19 12/30/19 History Insulin Aspart [NovoLOG Flexpen] 22 units SQ AC-SUPPER 12/06/19 12/30/19 History Magnesium Oxide [Mag-Ox] 400 mg PO DAILY 12/06/19 12/30/19 History Ondansetron HCl [Zofran] 4 mg PO Q6H PRN 12/06/19 12/30/19 History Prochlorperazine [Compazine] 10 mg PO BID 12/06/19 12/30/19 History Promethazine 6.25MG/5Ml [Phenergan 6.25 mg PO Q6H PRN 12/06/19 12/30/19 History Syrup] Insulin Aspart [NovoLOG Flexpen] See Protocol SQ AC-TID 12/30/19 12/30/19 History Spironolactone [Aldactone] 50 mg PO DAILY 12/30/19 12/30/19 History Allergies Allergy/AdvReac Type Severity Reaction Status Date / Time butorphanol tartrate Allergy BLISTERS Verified 12/30/19 19:35 [From Stadol] IN MOUTH ceftriaxone [From Rocephin] Allergy Unknown Verified 12/30/19 19:35 clarithromycin [From Biaxin] Allergy Rash/Hives Verified 12/30/19 19:35 codeine Allergy Rash/Hives Verified 12/30/19 19:35 ergotamine tartrate Allergy Unknown Verified 12/30/19 19:35 [From Cafergot] erythromycin base Allergy RASH, GI Verified 12/30/19 19:35 [From E-Mycin] SYMPTOMS ketorolac tromethamine Allergy Rash/Hives Verified 12/30/19 19:35 [From Toradol] liraglutide [From Victoza] Allergy Rash/Hives Verified 12/30/19 19:35 morphine Allergy Rash/Hives Verified 12/30/19 19:35 Penicillins Allergy Rash/Hives Verified 12/30/19 19:35 pentazocine lactate Allergy SEVERE Verified 12/30/19 19:35 [From Talwin] BLISTERS IN MOUTH pregabalin [From Lyrica] Allergy Rash/Hives Verified 12/30/19 19:35 propoxyphene HCl Allergy Rash/Hives Verified 12/30/19 19:35 [From Darvon] Sulfa (Sulfonamide Allergy Rash/Hives Verified 12/30/19 19:35 Antibiotics) tramadol Allergy Unknown Verified 12/30/19 19:35 monosodium glutamate [MSG] AdvReac Nausea & Verified 12/30/19 19:35 Vomiting nalbuphine HCl [From Nubain] AdvReac Nausea & Verified 12/30/19 19:35 Vomiting Physical Exam Vitals: Vital Signs Temp Pulse Pulse Resp BP BP Pulse Ox 12/31/19 04:00 108 H 17 129/78 95 12/31/19 00:15 98.5 F 98 17 113/76 98 12/30/19 20:00 99.4 F 114 H 18 125/78 97 12/30/19 19:11 98 F 116 H 18 102/90 96 12/30/19 18:06 20 12/30/19 16:11 98.3 F 122 H 18 103/60 93 L Intake and Output 12/30/19 12/31/19 12/31/19 22:59 06:59 14:59 Intake Total 200 Balance 200 Intake: Intake, IV Titration 200 Amount Sodium Chloride 0.9% 1, 200 000 ml @ 50 mls/hr IV . [facility] Rx#:[id number] Other: # Voids 1 Weight 63.503 kg General: well nourished, well developed, NAD. Vitals reviewed Eyes: PERRL, EOMI, conjunctiva normal HENT: normocephalic, mucus membranes moist Neck: supple, no JVD Lungs: normal respiratory effort, no wheezes or rales CV: Regular rate and rhythm, no murmur. Peripheral pulses 2+ Abdomen: soft, nondistended, no organomegaly. Suprapubic tenderness Lymph: no cervical or axillary LAD Skin: warm and dry. Neuro: A&Ox3, normal mood and affect Results CBC & Chem 7: 12/30/19 16:55 12/30/19 16:55 Labs: Abnormal Lab Results - Last 24 Hours (Table) 12/30/19 12/30/19 12/30/19 Range/Units 16:55 16:55 16:55 Hct 47.0 H (34.0-46.0) % APTT 20.5 L (22.0-30.0) sec Sodium 135 L (137-145) mmol/L Glucose 186 H (74-99) mg/dL POC Glucose (mg/dL) (75-99) mg/dL Plasma Lactic Acid Sudhir (0.7-2.0) mmol/L Total Protein 6.1 L (6.3-8.2) g/dL Urine Appearance (Clear) Ur Specific [place] (1.001-1.035) Urine Protein (Negative) Urine Ketones (Negative) Urine Blood (Negative) Ur Leukocyte Esterase (Negative) Urine RBC (0-5) /hpf Urine WBC (0-5) /hpf Ur Squamous Epith Cells (0-4) /hpf Urine Bacteria (None) /hpf Hyaline Casts (0-2) /lpf Urine Mucus (None) /hpf 12/30/19 12/30/19 12/30/19 Range/Units 16:55 17:17 21:07 Hct (34.0-46.0) % APTT (22.0-30.0) sec Sodium (137-145) mmol/L Glucose (74-99) mg/dL POC Glucose (mg/dL) 187 H (75-99) mg/dL Plasma Lactic Acid Sudhir 2.4 H* (0.7-2.0) mmol/L Total Protein (6.3-8.2) g/dL Urine Appearance Cloudy H (Clear) Ur Specific [place] 1.050 H (1.001-1.035) Urine Protein 1+ H (Negative) Urine Ketones 1+ H (Negative) Urine Blood Moderate H (Negative) Ur Leukocyte Esterase Large H (Negative) Urine RBC 14 H (0-5) /hpf Urine WBC >182 H (0-5) /hpf Ur Squamous Epith Cells 12 H (0-4) /hpf Urine Bacteria Rare H (None) /hpf Hyaline Casts 126 H (0-2) /lpf Urine Mucus Few H (None) /hpf 12/31/19 Range/Units 06:42 Hct (34.0-46.0) % APTT (22.0-30.0) sec Sodium (137-145) mmol/L Glucose (74-99) mg/dL POC Glucose (mg/dL) 181 H (75-99) mg/dL Plasma Lactic Acid Sudhir (0.7-2.0) mmol/L Total Protein (6.3-8.2) g/dL Urine Appearance (Clear) Ur Specific [place] (1.001-1.035) Urine Protein (Negative) Urine Ketones (Negative) Urine Blood (Negative) Ur Leukocyte Esterase (Negative) Urine RBC (0-5) /hpf Urine WBC (0-5) /hpf Ur Squamous Epith Cells (0-4) /hpf Urine Bacteria (None) /hpf Hyaline Casts (0-2) /lpf Urine Mucus (None) /hpf Microbiology - Last 24 Hours (Table) 12/30/19 17:17 Urine Culture - Preliminary Urine,Voided Thrombosis Risk Factor Assmnt - Choose All That Apply Any of the Below Risk Factors Present?: Yes Each Factor Represents 1 point: Obesity (BMI >25) Other Risk Factors: Yes Each Risk Factor Represents 2 Points: Age 61-74 years Other congenital or acquired thrombophilia - If yes, enter type in comment: No Thrombosis Risk Factor Assessment Total Risk Factor Score: 3 Thrombosis Risk Factor Assessment Level: Moderate Risk Assessment and Plan (1) Sepsis due to gram-negative UTI Current Visit: Yes Status: Acute Code(s): A41.50 - GRAM-NEGATIVE SEPSIS, UNSPECIFIED; N39.0 - URINARY TRACT INFECTION, SITE NOT SPECIFIED SNOMED Code(s): 906189906 (2) Recurrent sepsis due to urinary tract infection Current Visit: Yes Status: Acute Code(s): A41.9 - SEPSIS, UNSPECIFIED ORGANISM; N39.0 - URINARY TRACT INFECTION, SITE NOT SPECIFIED SNOMED Code(s): 154387737 (3) Generalized weakness Current Visit: Yes Status: Acute Code(s): R53.1 - WEAKNESS SNOMED Code(s): 46754561 (4) Adrenal insufficiency Current Visit: No Status: Chronic Code(s): E27.40 - UNSPECIFIED ADRENOCORTICAL INSUFFICIENCY SNOMED Code(s): 476382778 (5) DM type 2 (diabetes mellitus, type 2) Current Visit: No Status: Chronic Code(s): E11.9 - TYPE 2 DIABETES MELLITUS WITHOUT COMPLICATIONS SNOMED Code(s): 56808488 Plan: 1. Sepsis due to UTI. Concern for MDR organism with recent history. Start ertapenem. ID consult. Follow urine culture 2. T2DM. Continue accucheck, sliding scale 3. Chronic migraine. Continue home [place], dilaudid for breakthrough pain. Continue fioricet 4. HTN. Continue aldactone 5. Adrenal insufficiency. Continue cortef at home dose
[2019-12-31] MEDS: SODIUM CHLORIDE 0.9% 1,000 ML IV SCH (16:15)
[2019-12-31 17:00] LABS: Glucose,Whole Blood 168 mg/dL (75-99)
[2019-12-31] MEDS: ERTAPENEM 1 GM in SODIUM CHLORIDE 0.9% 50 ML IVPB SCH (17:31)
[2019-12-31 20:31] LABS: Glucose,Whole Blood 150 mg/dL (75-99)
[2019-12-31] MEDS: BUTALB/APAP/CAFF 50-325-40MG TAB PO PRN (20:31)
[2019-12-31] MEDS: METOPROLOL SUCCINATE (ER) 50 MG TAB.ER.24H PO SCH (20:32)
[2019-12-31] MEDS ORDERED: ATORVASTATIN 40 MG TAB PO SCH (21:00)
[2020-01-01] MEDS: HYDROcodone/APAP 10-325MG 1 EACH TAB PO PRN ×2 (00:27→10:00)
[2020-01-01] MEDS: HYDROmorphone 0.5 MG/0.5 ML SYRINGE IVP PRN ×3 (01:40→21:23)
[2020-01-01] MEDS ORDERED: HYDROmorphone 0.5 MG/0.5 ML SYRINGE IVP STA (06:30)
--- NOTE | 2020-01-01 06:35 | P.CONS ---
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 last antibiotic completion about 3 weeks ago and the patient did have a CT of abdominal pelvis done on 11/26/2019 which did show small bilateral renal calculi but no other structural abnormality of the kidneys patient is complaining of generalized not feeling well, feeling nauseated no vomiting no abdominal pain no diarrhea is also complaining of urinary burning frequency and urgency with the Center the patient was evaluated by her primary care physician's and the patient was sent back to the ER for admission and IV antibiotic therapy patient was seen by the ER physician patient on arrival to the ER afebrile she did have a low-grade fever of 99.7 this morning her white count was normal. Urine was significantly positive chest x- ray negative for pneumonia patient was started on Invanz admitted to the hospital infectious disease was consulted for management of antibiotic therapy Review of Systems Positive point has been mentioned in the HPI rest of the systems are negative Past Medical History Past Medical History: Diabetes Mellitus, Deep Vein Thrombosis (DVT), Fibromyalgia, Hyperlipidemia, Hypertension, Osteoarthritis (OA), Pneumonia, Renal Disease, Sleep Apnea/CPAP/BIPAP, Vascular Disorder Additional Past Medical History / Comment(s): Pt recently admitted to [facility] on 11/28/19 with recurerent UTI. 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, DVT R calf in 1976, cardiac murmur, occipital neuraligia, balance issues-has narrowing of vessels "in the back of my head", vertigo, varicosities, states rt shoulder torn rotator cuff History of Any Multi-Drug Resistant Organisms: ESBL, MRSA, VRE Year Discovered:: 11/09/19 ESBL; 03/10/11 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 MDRO Source:: ESBL URINE; MRSA 4th rt TOE VRE URINE Past Surgical History: Appendectomy, Back Surgery, Bladder Surgery, Breast Surgery, Cholecystectomy, Heart Catheterization, Hysterectomy, Orthopedic Surgery, Tonsillectomy Additional Past Surgical History / Comment(s): Lumbar fusions, bladder suspension, occipital nerve blocks, 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, R wrist/elbow nerve repair, bone removed R shoulder, 4th toe R foot partial amputation, bilateral feet/bunionectomies, R knee arthroscopies, R orbit decompression with ethmoidectomy and eyelid lift, EGD, colonoscopies, cystocopies, lithotripsy/stents, bilateral breast reduction, bilateral cataract removals, parathyroid surgery - April 2019, pain clinic procedures Past Anesthesia/Blood Transfusion Reactions: No Reported Reaction Additional Past Anesthesia/Blood Transfusion Reaction / Comm: never recieved blood Past Psychological History: No Psychological Hx Reported Past Alcohol Use History: None Reported Past Drug Use History: None Reported - Past Family History Father Family Medical History: Coronary Artery Disease (CAD), CVA/TIA, Diabetes Mellitus, Myocardial Infarction ([place]), Pneumonia Additional Family Medical History / Comment(s): Father at the age of 78yrs from [place] and pneumonia. Mother Family Medical History: Cancer Additional Family Medical History / Comment(s): Mother had uterine cancer. She recently at the age of 96yrs old from [facility]. Medications and Allergies Home Medications Medication Instructions Recorded Confirmed Type Cholecalciferol [Vitamin D3 (25 3,000 unit PO DAILY@0700 12/01/14 12/30/19 History Mcg = 1000 Iu)] Metoprolol Succinate (ER) [Toprol 50 mg PO HS 07/06/17 12/30/19 History XL] Meclizine [Antivert] 25 mg PO QID PRN 11/26/17 12/30/19 History Hydrocortisone [Cortef] 15 mg PO AC-BRKFST 05/18/18 12/30/19 History Hydrocortisone [Cortef] 5 mg PO HS 06/26/18 12/30/19 History Aspirin 81 mg PO DAILY #0 07/02/18 12/30/19 Rx Glucagon Emergency Kit 1 mg IM ONCE PRN 08/12/18 12/30/19 History Cranberry 300mg 300 mg PO BID 10/08/18 12/30/19 History Ferrous Sulfate [Iron (65 MG 325 mg PO DAILY 10/08/18 12/30/19 History Elemental)] Folic Acid 0.4 mg PO DAILY 10/08/18 12/30/19 History L.acidoph,Paracasei, B.lactis 2 cap PO BID 10/08/18 12/30/19 History [Probiotic] Melatonin 5 mg PO HS PRN 10/08/18 12/30/19 History Multivitamins, Thera Liquid 30 ml PO DAILY 10/08/18 12/30/19 History [Theragran Liquid (formulary)] Potassium 99 mg PO DAILY 10/08/18 12/30/19 History Thiamine [Vitamin B-1] 100 mg PO DAILY 10/08/18 12/30/19 History Vitamin B-Complex Drops 1 ml PO BID 10/08/18 12/30/19 History Lisinopril [Zestril] 20 mg PO W/BRKFST 11/08/18 12/30/19 History Atorvastatin [Lipitor] 40 mg PO HS #30 tab 11/16/18 12/30/19 Rx HYDROcodone/APAP 10-325MG [[place] 1 - 2 tab PO Q4-6H PRN 12/26/18 12/30/19 History 10-325] Pantoprazole [Protonix] 40 mg PO BID 01/29/19 12/30/19 History Hydrocortisone [Cortef] 10 mg PO AC-LUNCH 08/30/19 12/30/19 History Insulin Aspart [NovoLOG Flexpen] 18 units SQ AC-LUNCH #0 09/24/19 12/30/19 Rx Insulin Aspart [NovoLOG Flexpen] 14 units SQ AC-BRKFST 10/28/19 12/30/19 History Insulin Glargine,Hum.rec.anlog 26 unit SQ HS@2200 11/08/19 12/30/19 History [Lantus Solostar] Venlafaxine HCl [Effexor XR] 75 mg PO DAILY 11/08/19 12/30/19 History Acetaminophen Tab [Tylenol] 1,000 mg PO Q6HR PRN 12/06/19 12/30/19 History Butalb/APAP/Caff 50-325-40Mg 1 tab PO QID PRN 12/06/19 12/30/19 History [Fioricet 50-325-40] Clopidogrel [Plavix] 75 mg PO DAILY 12/06/19 12/30/19 History Insulin Aspart [NovoLOG Flexpen] 22 units SQ AC-SUPPER 12/06/19 12/30/19 History Magnesium Oxide [Mag-Ox] 400 mg PO DAILY 12/06/19 12/30/19 History Ondansetron HCl [Zofran] 4 mg PO Q6H PRN 12/06/19 12/30/19 History Prochlorperazine [Compazine] 10 mg PO BID 12/06/19 12/30/19 History Promethazine 6.25MG/5Ml [Phenergan 6.25 mg PO Q6H PRN 12/06/19 12/30/19 History Syrup] Insulin Aspart [NovoLOG Flexpen] See Protocol SQ AC-TID 12/30/19 12/30/19 History Spironolactone [Aldactone] 50 mg PO DAILY 12/30/19 12/30/19 History Allergies Allergy/AdvReac Type Severity Reaction Status Date / Time butorphanol tartrate Allergy BLISTERS Verified 12/30/19 19:35 [From Stadol] IN MOUTH ceftriaxone [From Rocephin] Allergy Unknown Verified 12/30/19 19:35 clarithromycin [From Biaxin] Allergy Rash/Hives Verified 12/30/19 19:35 codeine Allergy Rash/Hives Verified 12/30/19 19:35 ergotamine tartrate Allergy Unknown Verified 12/30/19 19:35 [From Cafergot] erythromycin base Allergy RASH, GI Verified 12/30/19 19:35 [From E-Mycin] SYMPTOMS ketorolac tromethamine Allergy Rash/Hives Verified 12/30/19 19:35 [From Toradol] liraglutide [From Victoza] Allergy Rash/Hives Verified 12/30/19 19:35 morphine Allergy Rash/Hives Verified 12/30/19 19:35 Penicillins Allergy Rash/Hives Verified 12/30/19 19:35 pentazocine lactate Allergy SEVERE Verified 12/30/19 19:35 [From Talwin] BLISTERS IN MOUTH pregabalin [From Lyrica] Allergy Rash/Hives Verified 12/30/19 19:35 propoxyphene HCl Allergy Rash/Hives Verified 12/30/19 19:35 [From Darvon] Sulfa (Sulfonamide Allergy Rash/Hives Verified 12/30/19 19:35 Antibiotics) tramadol Allergy Unknown Verified 12/30/19 19:35 monosodium glutamate [MSG] AdvReac Nausea & Verified 12/30/19 19:35 Vomiting nalbuphine HCl [From Nubain] AdvReac Nausea & Verified 12/30/19 19:35 Vomiting Physical Exam Vitals: Vital Signs Temp Pulse Pulse Resp BP BP Pulse Ox 12/31/19 08:00 99.7 F H 119 H 16 125/66 12/31/19 04:00 108 H 17 129/78 95 12/31/19 00:15 98.5 F 98 17 113/76 98 12/30/19 20:00 99.4 F 114 H 18 125/78 97 12/30/19 19:11 98 F 116 H 18 102/90 96 12/30/19 18:06 20 12/30/19 16:11 98.3 F 122 H 18 103/60 93 L Intake and Output 12/30/19 12/31/19 12/31/19 22:59 06:59 14:59 Intake Total 200 Balance 200 Intake: Intake, IV Titration 200 Amount Sodium Chloride 0.9% 1, 200 000 ml @ 50 mls/hr IV . Q20H [facility] Rx#:[id number] Other: # Voids 1 1 Weight 63.503 kg GENERAL DESCRIPTION: An elderly female lying in bed, no distress. No tachypnea or accessory muscle of respiration use. HEENT: Shows Pallor , no scleral icterus. Oral mucous membrane is dry. No pharyngeal erythema or thrush NECK: Trachea central, no thyromegaly. LUNGS: Unlabored breathing. Clear to auscultation anteriorly. No wheeze or crackle. HEART: S1, S2, regular rate and rhythm. No loud murmur ABDOMEN: Soft, no tenderness , guarding or rigidity, no organomegaly EXTREMITIES: No edema of feet. SKIN: No rash, no masses palpable. NEUROLOGICAL: The patient is awake, alert, oriented x3, mood and affect normal. Results CBC & Chem 7: 12/30/19 16:55 12/30/19 16:55 Labs: Abnormal Lab Results - Last 24 Hours (Table) 12/30/19 12/30/19 12/30/19 Range/Units 16:55 16:55 16:55 Hct 47.0 H (34.0-46.0) % APTT 20.5 L (22.0-30.0) sec Sodium 135 L (137-145) mmol/L Glucose 186 H (74-99) mg/dL POC Glucose (mg/dL) (75-99) mg/dL Plasma Lactic Acid Sudhir (0.7-2.0) mmol/L Total Protein 6.1 L (6.3-8.2) g/dL Urine Appearance (Clear) Ur Specific Fountain (1.001-1.035) Urine Protein (Negative) Urine Ketones (Negative) Urine Blood (Negative) Ur Leukocyte Esterase (Negative) Urine RBC (0-5) /hpf Urine WBC (0-5) /hpf Ur Squamous Epith Cells (0-4) /hpf Urine Bacteria (None) /hpf Hyaline Casts (0-2) /lpf Urine Mucus (None) /hpf 12/30/19 12/30/19 12/30/19 Range/Units 16:55 17:17 21:07 Hct (34.0-46.0) % APTT (22.0-30.0) sec Sodium (137-145) mmol/L Glucose (74-99) mg/dL POC Glucose (mg/dL) 187 H (75-99) mg/dL Plasma Lactic Acid Sudhir 2.4 H* (0.7-2.0) mmol/L Total Protein (6.3-8.2) g/dL Urine Appearance Cloudy H (Clear) Ur Specific [place]ountain 1.050 H (1.001-1.035) Urine Protein 1+ H (Negative) Urine Ketones 1+ H (Negative) Urine Blood Moderate H (Negative) Ur Leukocyte Esterase Large H (Negative) Urine RBC 14 H (0-5) /hpf Urine WBC >182 H (0-5) /hpf Ur Squamous Epith Cells 12 H (0-4) /hpf Urine Bacteria Rare H (None) /hpf Hyaline Casts 126 H (0-2) /lpf Urine Mucus Few H (None) /hpf 12/31/19 12/31/19 Range/Units 06:42 11:45 Hct (34.0-46.0) % APTT (22.0-30.0) sec Sodium (137-145) mmol/L Glucose (74-99) mg/dL POC Glucose (mg/dL) 181 H 165 H (75-99) mg/dL Plasma Lactic Acid Sudhir (0.7-2.0) mmol/L Total Protein (6.3-8.2) g/dL Urine Appearance (Clear) Ur Specific [place]ountain (1.001-1.035) Urine Protein (Negative) Urine Ketones (Negative) Urine Blood (Negative) Ur Leukocyte Esterase (Negative) Urine RBC (0-5) /hpf Urine WBC (0-5) /hpf Ur Squamous Epith Cells (0-4) /hpf Urine Bacteria (None) /hpf Hyaline Casts (0-2) /lpf Urine Mucus (None) /hpf Microbiology - Last 24 Hours (Table) 12/30/19 17:17 Urine Culture - Preliminary Urine,Voided Assessment and Plan Assessment: 1- patient is a 69-year-old female with a past medical history significant for recurrent urinary tract infection with resection could be postmenopausal status or the renal stones now presenting with significant Urinary Symptoms of burning frequency not feeling well did have a positive urine but no high-grade fever or elevated white count and question of possible cystitis rather than deep infection (1) UTI (urinary tract infection) Current Visit: Yes Status: Acute Code(s): N39.0 - URINARY TRACT INFECTION, SITE NOT SPECIFIED SNOMED Code(s): 65376148 Plan: 1- patient has been started on Invanz to continue with daptomycin 2- gentle IV fluid 3- we'll consider intravaginal estrogen cream on discharge to prevent recurrent urinary tract infection in this postmenopausal lady We will follow on clinical condition and cultures to further adjust medication if needed Thank you for this consultation will follow this patient with you Time with Patient: Greater than 30
[2020-01-01 06:53] LABS: Glucose,Whole Blood 164 mg/dL (75-99)
[2020-01-01] MEDS: PANTOPRAZOLE 40 MG TABLET PO SCH ×2 (07:43→18:02)
[2020-01-01] MEDS: INSULIN ASPART (NovoLOG) 100 UNIT/ML VIAL SQ SCH ×4 (07:45→20:55)
[2020-01-01] MEDS: HYDROCORTISONE 10 MG TAB PO SCH ×3 (07:48→20:32)
[2020-01-01] MEDS: MAGNESIUM OXIDE 400 MG TAB PO SCH (09:11)
[2020-01-01] MEDS: ASPIRIN 81 MG PO SCH (09:11)
[2020-01-01] MEDS: CLOPIDOGREL 75 MG TAB PO SCH (09:11)
[2020-01-01] MEDS: VENLAFAXINE HCL ER 75 MG CAP PO SCH (09:12)
[2020-01-01] MEDS: SPIRONOLACTONE 25 MG TAB PO SCH (09:12)
[2020-01-01] MEDS: SODIUM CHLORIDE 0.9% 1,000 ML IV SCH (11:24)
[2020-01-01 12:14] LABS: Glucose,Whole Blood 144 mg/dL (75-99)
[2020-01-01] MEDS: LACTOBACILLUS ACIDOPH & BULGAR 1 EACH PACKET PO SCH ×2 (14:46→20:31)
--- NOTE | 2020-01-01 16:14 | P.PN ---
Subjective Progress Note Date: 01/01/20 Melissa Pena is a 69 yo F with PMH of recent UTI growing ESBL E coli requiring ertapenem course completed last month, T2DM, adrenal insufficiency, migraine, HTN who presented to the ED with a 3 day course of worsening weakness, unsteadiness and decreased appetite. She was seen in her PCP office and recom mended to present to the ED for further evaluation. She does complain of dysuria, urinary frequency and urgency. Pt denies fever or chills. On presentation she was tachycardic, WBC 9.7, lactic 2.4, UA with 4+ LE and positive for bacteria. 01/01/2020 urine culture reporting gram-negative bacilli. IV antibiotics adjusted to daptomycin yesterday as per ID. Complains of abdominal pain accompanied by nausea, no emesis, denies diarrhea. Denies shortness of breath, chest pain, cough or sore throat. Earlier this morning complained of midsternal pain as well as right side of back pain. Objective - Vital Signs Vital signs: Vital Signs Temp 98.8 F 01/01/20 07:29 Pulse 96 01/01/20 07:29 Resp 16 01/01/20 07:29 BP 137/66 01/01/20 07:29 Pulse Ox 96 01/01/20 05:39 Intake & Output 12/31/19 01/01/20 01/01/20 18:59 06:59 18:59 Intake Total 800 Output Total 50 Balance 800 -50 Weight 64 kg Intake: Intake, IV Titration 800 Amount DAPTOmycin 300 mg In 500 Sodium Chloride 0.9% 50 ml @ 100 mls/hr IVPB Q24HR [facility] Rx#:[id number] Sodium Chloride 0.9% 1, 300 000 ml @ 50 mls/hr IV . Q20H [facility] Rx#:[id number] Output: Urine 50 Other: Voiding Method Bedside Commode Toilet Diaper Bedside Commode Incontinent # Voids 1 2 - Exam General: well nourished, well developed, NAD. Vitals reviewed, tired appearing Eyes: PERRL, EOMI, conjunctiva normal HENT: normocephalic, mucus membranes moist Neck: supple, no JVD Lungs: normal respiratory effort, no wheezes or rales CV: Regular rate and rhythm, no murmur. Peripheral pulses 2+ Abdomen: soft, nondistended,mild right upper quadrant, mid epigastric tenderness to palpation, no organomegaly. Lymph: no cervical or axillary LAD Skin: warm and dry. Neuro: A&Ox3, normal mood and affect Microbiology 12/30/19 17:17 Urine,Voided Urine Culture - Preliminary Gram Neg Bacilli - Labs CBC & Chem 7: 12/30/19 16:55 12/30/19 16:55 Labs: Abnormal Lab Results - Last 24 Hours (Table) 12/31/19 12/31/19 12/31/19 Range/Units 11:45 16:59 20:30 POC Glucose (mg/dL) 165 H 168 H 150 H (75-99) mg/dL 01/01/20 Range/Units 06:52 POC Glucose (mg/dL) 164 H (75-99) mg/dL Microbiology - Last 24 Hours (Table) 12/30/19 17:17 Urine Culture - Preliminary Urine,Voided Gram Neg Bacilli Assessment and Plan Assessment: (1) Sepsis due to gram-negative bacilli UTI Current Visit: Yes Status: Acute Code(s): A41.50 - GRAM-NEGATIVE SEPSIS, UNSPECIFIED; N39.0 - URINARY TRACT INFECTION, SITE NOT SPECIFIED SNOMED Code(s): 267046626 (2) Recurrent sepsis due to urinary tract infection Current Visit: Yes Status: Acute Code(s): A41.9 - SEPSIS, UNSPECIFIED ORGANISM; N39.0 - URINARY TRACT INFECTION, SITE NOT SPECIFIED SNOMED Code(s): 503706762 (3) Generalized weakness Current Visit: Yes Status: Acute Code(s): R53.1 - WEAKNESS SNOMED Code(s): 00084838 (4) Adrenal insufficiency Current Visit: No Status: Chronic Code(s): E27.40 - UNSPECIFIED ADRENOCORTICAL INSUFFICIENCY SNOMED Code(s): 692497850 (5) DM type 2 (diabetes mellitus, type 2) Current Visit: No Status: Chronic Code(s): E11.9 - TYPE 2 DIABETES MELLITUS WITHOUT COMPLICATIONS SNOMED Code(s): 12836330 (6) chronic migraines (7) abdominal pain, accompanied by nausea, etiology unclear, GI consulted Plan: Continue on current medication regime ,monitoring and symptomatic treatment. Maintain gentle IV fluid hydration. IV antibiotics as per infectious disease. PPI. GI consulted related to mid epigastric/right upper quadrant tenderness accompanied by nausea. Patient requesting Dilaudid, discussed only for breakthrough pain as oral Concord ordered. Patient further requested alternating Concord with Dilaudid. Reinforced Dilaudid would be for breakthrough pain only. Patient is postmenopausal, Infectious disease also recommending int ravaginal estrogen cream at discharge to hopefully prevent recurrent UTIs .Discharge planning in progress for tomorrow. The impression and plan of care has been dictated as directed. : I performed a history and examination of this patient, discussed the same with the dictator. I agree with the dictator's note ,documented as a scribe. Any additional findings or plans will be noted.
[2020-01-01 16:55] LABS: Glucose,Whole Blood 211 mg/dL (75-99)
--- NOTE | 2020-01-01 17:14 | XR ---
Abdomen HISTORY: Pain View of the abdomen submitted and correlated prior KUB 12/06/2019 Oh injection granuloma again noted. Patient shows posterior lumbosacral fusion as on prior exam. Florence ent is rotated. Surgical clips present right upper quadrant. There is a round probable artifact over the left hemiabdomen. Lung bases are clear. There is a paucity of bowel gas. Probable stomach bubble noted in the left upper quadrant. IMPRESSION: Gasless abdomen, follow-up suggested
[2020-01-01] MEDS: ERTAPENEM 1 GM in SODIUM CHLORIDE 0.9% 50 ML IVPB SCH (18:02)
[2020-01-01] MEDS: ONDANSETRON 4 MG/2 ML VIAL IVP PRN (18:08)
[2020-01-01] MEDS: METOPROLOL SUCCINATE (ER) 50 MG TAB.ER.24H PO SCH (20:32)
[2020-01-01] MEDS: METOCLOPRAMIDE 5 MG/ML 2 ML VIAL IVP PRN (20:38)
[2020-01-01 20:48] LABS: Glucose,Whole Blood 125 mg/dL (75-99)
--- NOTE | 2020-01-01 23:33 | PN ---
PROGRESS NOTE DATE OF SERVICE: 01/01/2020 REASON FOR FOLLOWUP: ESBL E coli urinary tract infection. INTERVAL HISTORY: The patient is currently afebrile. He is breathing comfortably. Still complaining of urinary symptoms of burning and discomfort. Nausea, but no vomiting. No chest pain, shortness of breath or cough. PHYSICAL EXAMINATION: Blood pressure 146/79 with a pulse of 90, temperature 98.4. She is 93% on room air. General description is an elderly female lying in bed in no distress. RESPIRATORY SYSTEM: Unlabored breathing, clear to auscultation anteriorly. HEART: S1, S2. Regular rate and rhythm. ABDOMEN: Soft, no tenderness. LABS: Urine has been finalized with ESBL E coli. Acute abdominal series was negative. DIAGNOSTIC IMPRESSION AND PLAN: Patient with recurrent urinary tract infection. Urine is positive for ESBL Escherichia coli. Patient is covered with Invanz. Daptomycin has been discontinued. We will continue to monitor clinical course closely. Continue supportive care. MMODL / IJN: [id number] /
[2020-01-02] MEDS: ONDANSETRON 4 MG/2 ML VIAL IVP PRN ×3 (02:35→18:47)
[2020-01-02] MEDS: HYDROmorphone 0.5 MG/0.5 ML SYRINGE IVP PRN ×3 (02:36→14:24)
[2020-01-02] MEDS: METOCLOPRAMIDE 5 MG/ML 2 ML VIAL IVP PRN (05:37)
[2020-01-02] MEDS: SODIUM CHLORIDE 0.9% 1,000 ML IV SCH (05:46)
[2020-01-02 06:19] LABS: Basophils % (A) 0 %; Eosinophils # (A) 0.3 k/uL (0-0.7); Eosinophils % (A) 5 %; HCT 39.6 % (34.0-46.0); HGB 13.2 gm/dL (11.4-16.0); Lymphocytes # (A) 1.5 k/uL (1.0-4.8); Lymphocytes % (A) 23 %; MCH 30.3 pg (25.0-35.0); MCHC 33.5 g/dL (31.0-37.0); MCV 90.6 fL (80.0-100.0); Monocytes # (A) 0.4 k/uL (0-1.0); Monocytes % (A) 6 %; Neutrophils # (A) 4.1 k/uL (1.3-7.7); Neutrophils % (A) 64 %; Platelet Count 194 k/uL (150-450); RBC 4.37 m/uL (3.80-5.40); RDW 13.7 % (11.5-15.5); WBC 6.4 k/uL (3.8-10.6)
[2020-01-02 06:37] LABS: Glucose,Whole Blood 152 mg/dL (75-99)
[2020-01-02 06:38] LABS: African American GFR (CKD) >90 (>60 ml/min/1.73 sqM); Anion Gap 8 mmol/L; Blood Urea Nitrogen 4 mg/dL (7-17); Calcium 8.1 mg/dL (8.4-10.2); Carbon Dioxide 25 mmol/L (22-30); Chloride 105 mmol/L (98-107); Glucose 149 mg/dL (74-99); Non-African American GFR(CKD) >90 (>60 ml/min/1.73 sqM); Potassium 4.2 mmol/L (3.5-5.1); Sodium 138 mmol/L (137-145)
[2020-01-02] MEDS: CLOPIDOGREL 75 MG TAB PO SCH (08:14)
[2020-01-02] MEDS: ASPIRIN 81 MG PO SCH (08:14)
[2020-01-02] MEDS: MAGNESIUM OXIDE 400 MG TAB PO SCH (08:14)
[2020-01-02] MEDS: SPIRONOLACTONE 25 MG TAB PO SCH (08:15)
[2020-01-02] MEDS: LACTOBACILLUS ACIDOPH & BULGAR 1 EACH PACKET PO SCH ×2 (08:15→21:05)
[2020-01-02] MEDS: LOPERAMIDE 2 MG CAP PO PRN ×2 (08:15→16:36)
[2020-01-02] MEDS: PANTOPRAZOLE 40 MG TABLET PO SCH ×2 (08:15→16:35)
[2020-01-02] MEDS: HYDROCORTISONE 10 MG TAB PO SCH ×3 (08:15→21:04)
[2020-01-02] MEDS: INSULIN ASPART (NovoLOG) 100 UNIT/ML VIAL SQ SCH ×4 (08:16→21:12)
[2020-01-02] MEDS: VENLAFAXINE HCL ER 75 MG CAP PO SCH (08:16)
--- NOTE | 2020-01-02 08:49 | P.CONS ---
History of Present Illness - Reason for Consult Consult date: 01/01/20 Nausea, diarrhea Requesting physician: Andrew Gonsales - Chief Complaint Weakness - History of Present Illness 69-year-old female with a medical history significant for recurrent urinary tract infections, diabetes mellitus, migraine disorder, hypertension and adrenal insufficiency who presented to the hospital with complaints of worsening weakness and decreased appetite. The patient was complaining of dysuria on presentation and is currently receiving treatment for urinary tract infection. She had been reporting some nausea in association with her symptoms. She was recently on IV antibiotics proximally 3 weeks ago and is again being treated for urinary tract infection as stated. She denies any vomiting with her symptoms. No history of reflux or peptic ulcer disease. She reports an associated decreased oral intake. She denies any abdominal pain but does have some tenderness on palpation. Bowel movements were initially normal on presentation but she has been having some was bowel movements in association with her antibiotic therapy. She believes her last EGD and colonoscopy over 10 years ago. Laboratory evaluation significant for INR 1, WBC 9.7, hemoglobin 14.9, platelet count 291,000 with a total bilirubin of 0.7, alkaline phosphatase 70, AST 22 and ALT 13. Review of Systems REVIEW OF SYSTEMS: CONSTITUTIONAL: Denies any fevers, chills, weight change or fatigue. CARDIOVASCULAR: Denies any chest pain, palpitations high or low blood pressures RESPIRATORY: Denies any shortness of breath, hemoptysis or cough. GENITOURINARY: Frequent history of urinary tract infections with some dysuria on presentation denying any hematuria. MUSCULOSKELETAL: No weakness reported. SKIN: Denies any new rashes or lesions, jaundice or pallor. PSYCHIATRIC: Denies any depression or anxiety. NEUROLOGY: Denies headache, denies any new focal deficits. EARS/NOSE/THROAT: No recent hearing change, congestion, nasal discharge or sore throat. EYES: No pain in eyes, discharge or change in vision. GASTROINTESTINAL: As per HPI. Past Medical History Past Medical History: Diabetes Mellitus, Deep Vein Thrombosis (DVT), Fibromyalgia, Hyperlipidemia, Hypertension, Osteoarthritis (OA), Pneumonia, Renal Disease, Sleep Apnea/CPAP/BIPAP, Vascular Disorder Additional Past Medical History / Comment(s): Pt recently admitted to [facility] on 11/28/19 with recurerent UTI. 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, DVT R calf in 1976, cardiac murmur, occipital neuraligia, balance issues-has narrowing of vessels "in the back of my head", vertigo, varicosities, states rt shoulder torn rotator cuff History of Any Multi-Drug Resistant Organisms: ESBL, MRSA, VRE Year Discovered:: 11/09/19 ESBL; 03/10/11 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 MDRO Source:: ESBL URINE; MRSA 4th rt TOE VRE URINE Past Surgical History: Appendectomy, Back Surgery, Bladder Surgery, Breast Surgery, Cholecystectomy, Heart Catheterization, Hysterectomy, Orthopedic Surgery, Tonsillectomy Additional Past Surgical History / Comment(s): Lumbar fusions, bladder s uspension, occipital nerve blocks, 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, R wrist/elbow nerve repair, bone removed R shoulder, 4th toe R foot partial amputation, bilateral feet/bunionectomies, R knee arthroscopies, R orbit decompression with ethmoidectomy and eyelid lift, EGD, colonoscopies, cystoco pies, lithotripsy/stents, bilateral breast reduction, bilateral cataract removals, parathyroid surgery - April 2019, pain clinic procedures Past Anesthesia/Blood Transfusion Reactions: No Reported Reaction Additional Past Anesthesia/Blood Transfusion Reaction / Comm: never recieved blood Past Psychological History: No Psychological Hx Reported Past Alcohol Use History: None Reported Past Drug Use History: None Reported - Past Family History Father Family Medical History: Coronary Artery Disease (CAD), CVA/TIA, Diabetes Mellitus, Myocardial Infarction (HI), Pneumonia Additional Family Medical History / Comment(s): Father at the age of 78yrs from HI and pneumonia. Mother Family Medical History: Cancer Additional Family Medical History / Comment(s): Mother had uterine cancer. She recently at the age of 96yrs old from [employer]. Medications and Allergies Home Medications Medication Instructions Recorded Confirmed Type Cholecalciferol [Vitamin D3 (25 3,000 unit PO DAILY@0700 12/01/12/30/19 History Mcg = 1000 Iu)] Metoprolol Succinate (ER) [Toprol 50 mg PO HS 01/18/18 07/13/20 History XL] Meclizine [Antivert] 25 mg PO QID PRN 11/26/17 12/30/19 History Hydrocortisone [Cortef] 15 mg PO AC-BRKFST 05/18/18 12/30/19 History Hydrocortisone [Cortef] 5 mg PO HS 06/26/18 12/30/19 History Aspirin 81 mg PO DAILY #0 07/02/18 12/30/19 Rx Glucagon Emergency Kit 1 mg IM ONCE PRN 08/12/18 12/30/19 History Cranberry 300mg 300 mg PO BID 10/08/18 12/30/19 History Ferrous Sulfate [Iron (65 MG 325 mg PO DAILY 10/08/18 12/30/19 History Elemental)] Folic Acid 0.4 mg PO DAILY 10/08/18 12/30/19 History L.acidoph,Paracasei, B.lactis 2 cap PO BID 10/08/18 12/30/19 History [Probiotic] Melatonin 5 mg PO HS PRN 10/08/18 12/30/19 History Multivitamins, Thera Liquid 30 ml PO DAILY 10/08/18 12/30/19 History [Theragran Liquid (formulary)] Potassium 99 mg PO DAILY 10/08/18 12/30/19 History Thiamine [Vitamin B-1] 100 mg PO DAILY 10/08/18 12/30/19 History Vitamin B-Complex Drops 1 ml PO BID 10/08/18 12/30/19 History Lisinopril [Zestril] 20 mg PO W/BRKFST 11/08/18 12/30/19 History Atorvastatin [Lipitor] 40 mg PO HS #30 tab 11/16/18 12/30/19 Rx HYDROcodone/APAP 10-325MG [Burtrum 1 - 2 tab PO Q4-6H PRN 12/26/18 12/30/19 History 10-325] Pantoprazole [Protonix] 40 mg PO BID 01/29/19 12/30/19 History Hydrocortisone [Cortef] 10 mg PO AC-LUNCH 08/30/19 12/30/19 History Insulin Aspart [NovoLOG Flexpen] 18 units SQ AC-LUNCH #0 09/24/19 12/30/19 Rx Insulin Aspart [NovoLOG Flexpen] 14 units SQ AC-BRKFST 10/28/19 12/30/19 History Insulin Glargine,Hum.rec.anlog 26 unit SQ HS@2200 11/08/19 12/30/19 History [Lantus Solostar] Venlafaxine HCl [Effexor XR] 75 mg PO DAILY 11/08/19 12/30/19 History Acetaminophen Tab [Tylenol] 1,000 mg PO Q6HR PRN 12/06/19 12/30/19 History Butalb/APAP/Caff 50-325-40Mg 1 tab PO QID PRN 12/06/19 12/30/19 History [Fioricet 50-325-40] Clopidogrel [Plavix] 75 mg PO DAILY 12/06/19 12/30/19 History Insulin Aspart [NovoLOG Flexpen] 22 units SQ AC-SUPPER 12/06/19 12/30/19 History Magnesium Oxide [Mag-Ox] 400 mg PO DAILY 12/06/19 12/30/19 History Ondansetron HCl [Zofran] 4 mg PO Q6H PRN 12/06/19 12/30/19 History Prochlorperazine [Compazine] 10 mg PO BID 12/06/19 12/30/19 History Promethazine 6.25MG/5Ml [Phenergan 6.25 mg PO Q6H PRN 12/06/19 12/30/19 History Syrup] Insulin Aspart [NovoLOG Flexpen] See Protocol SQ AC-TID 12/30/19 12/30/19 History Spironolactone [Aldactone] 50 mg PO DAILY 12/30/19 12/30/19 History Allergies Allergy/AdvReac Type Severity Reaction Status Date / Time butorphanol tartrate Allergy BLISTERS Verified 12/30/19 19:35 [From Stadol] IN MOUTH ceftriaxone [From Rocephin] Allergy Unknown Verified 12/30/19 19:35 clarithromycin [From Biaxin] Allergy Rash/Hives Verified 12/30/19 19:35 codeine Allergy Rash/Hives Verified 12/30/19 19:35 ergotamine tartrate Allergy Unknown Verified 12/30/19 19:35 [From Cafergot] erythromycin base Allergy RASH, GI Verified 12/30/19 19:35 [From E-Mycin] SYMPTOMS ketorolac tromethamine Allergy Rash/Hives Verified 12/30/19 19:35 [From Toradol] liraglutide [From Victoza] Allergy Rash/Hives Verified 12/30/19 19:35 morphine Allergy Rash/Hives Verified 12/30/19 19:35 Penicillins Allergy Rash/Hives Verified 12/30/19 19:35 pentazocine lactate Allergy SEVERE Verified 12/30/19 19:35 [From Talwin] BLISTERS IN MOUTH pregabalin [From Lyrica] Allergy Rash/Hives Verified 12/30/19 19:35 propoxyphene HCl Allergy Rash/Hives Verified 12/30/19 19:35 [From Darvon] Sulfa (Sulfonamide Allergy Rash/Hives Verified 12/30/19 19:35 Antibiotics) tramadol Allergy Unknown Verified 12/30/19 19:35 monosodium glutamate [MSG] AdvReac Nausea & Verified 12/30/19 19:35 Vomiting nalbuphine HCl [From Nubain] AdvReac Nausea & Verified 12/30/19 19:35 Vomiting Physical Exam Vitals: Vital Signs Temp Pulse Resp BP Pulse Ox 01/01/20 07:29 98.8 F 96 16 137/66 01/01/20 05:39 98.1 F 62 16 137/66 96 01/01/20 00:09 98.6 F 86 17 150/76 93 L 12/31/19 16:17 98.5 F 115 H 18 149/67 94 L Intake and Output 01/01/20 01/01/20 01/01/20 06:59 14:59 22:59 Intake Total 500 Output Total 150 Balance 500 -150 Intake: Intake, IV Titration 500 Amount DAPTOmycin 300 mg In 500 Sodium Chloride 0.9% 50 ml @ 100 mls/hr IVPB Q24HR [facility] Rx#:[id number] Output: Urine 150 Other: Voiding Method Bedside Commode Toilet Diaper Bedside Commode Incontinent # Voids 2 2 Weight 64 kg On physical examination, patient appears comfortable in no apparent distress. HEAD: Normocephalic, atraumatic. EYES: No scleral icterus. No conjunctival injection. MOUTH: No lesions, tongue midline. NECK: Trachea midline, no gross abnormalities. CHEST: Decreased air entry in all lung hinds. HEART: S1-S2 appreciated. ABDOMEN: Soft, mildly tender to palpation. Bowel sounds are positive. No organomegaly. No guarding or rigidity. EXTREMITIES: No pedal edema. SKIN: No rashes, no jaundice. NEUROLOGIC: Alert and oriented x3. No focal deficits. Results CBC & Chem 7: 01/02/20 05:52 01/02/20 05:52 Labs: Abnormal Lab Results - Last 24 Hours (Table) 12/31/19 12/31/19 01/01/20 Range/Units 16:59 20:30 06:52 POC Glucose (mg/dL) 168 H 150 H 164 H (75-99) mg/dL 01/01/20 Range/Units 12:12 POC Glucose (mg/dL) 144 H (75-99) mg/dL Microbiology - Last 24 Hours (Table) 12/30/19 17:17 Urine Culture - Preliminary Urine,Voided Gram Neg Bacilli Abdominal x-ray: report reviewed Assessment and Plan (1) Nausea Narrative/Plan: 69-year-old female with multiple medical comorbidities including recurrent urinary tract infections presenting to the hospital due to weakness currently receiving treatment for urinary tract infection. Patient with nausea with some decreased oral intake. Likely related to underlying UTI. Denies any reflux, peptic ulcer disease, NSAID use, or vomiting. Current Visit: Yes Status: Acute Code(s): R11.0 - NAUSEA SNOMED Code(s): 861547905 (2) Diarrhea Narrative/Plan: Patient reporting acute diarrhea since initiation of antibiotic therapy. Testing for Clostridium difficile was negative. Current Visit: No Status: Acute Code(s): R19.7 - DIARRHEA, UNSPECIFIED SNOMED Code(s): 06971614 Plan: Supportive care Okay for diet Continue Protonix twice a day Probiotic ordered X-ray abdomen ordered with absence of air seen on x-ray likely related to acute diarrhea in the setting of antibiotic therapy Okay for antidiarrheal as needed for antibiotic related diarrhea Thank you for allowing us to participate in the care of the patient
[2020-01-02] MEDS: SIMETHICONE 80 MG CHEWABLE PO SCH ×4 (09:22→21:03)
[2020-01-02] MEDS: HYDROcodone/APAP 10-325MG 1 EACH TAB PO SCH ×2 (10:27→17:44)
[2020-01-02 11:45] LABS: Glucose,Whole Blood 221 mg/dL (75-99)
--- NOTE | 2020-01-02 12:09 | US ---
EXAMINATION TYPE: US venous doppler duplex LE DATE OF EXAM: 01/02/2020 11:51 AM COMPARISON: NONE CLINICAL HISTORY: 69-year-old female rule out lower extremity DVT. Mild left leg swelling, history of DVT in right leg 1977 SIDE PERFORMED: Bilateral TECHNIQUE: The lower extremity deep venous system is examined utilizing real time linear array sonog acosta with graded compression, doppler sonography and color-flow sonography. FINDINGS: VESSELS IMAGED: External Iliac Vein (EIV) Common Femoral Vein Deep Femoral Vein Greater Saphenous Vein * Femoral Vein Popliteal Vein Small Saphenous Vein * Proximal Calf Veins (* superficial vessels) [employer] Worker notes: challenging scan due to shadowing arterial calcifications and inability to see r ight lower femoral vein w/o color Right Leg: Negative for DVT Left Leg: Negative for DVT IMPRESSION: 1. Exam limitations due to shadowing arterial calcifications. Also, unable to visualize the right low er femoral vein without color. 2. No definite DVT identified within either lower extremity imaged from the groin to the upper calves .
[2020-01-02 13:48] VITALS: BMI 27.5
[2020-01-02 16:53] LABS: Glucose,Whole Blood 227 mg/dL (75-99)
--- NOTE | 2020-01-02 17:03 | P.PN ---
Subjective Progress Note Date: 01/02/20 Melissa Pena is a 69 yo F with PMH of recent UTI growing ESBL E coli requiring ertapenem course completed last month, T2DM, adrenal insufficiency, migraine, HTN who presented to the ED with a 3 day course of worsening weakness, unsteadiness and decreased appetite. She was seen in her PCP office and recom mended to present to the ED for further evaluation. She does complain of dysuria, urinary frequency and urgency. Pt denies fever or chills. On presentation she was tachycardic, WBC 9.7, lactic 2.4, UA with 4+ LE and positive for bacteria. 01/01/2020 urine culture reporting gram-negative bacilli. IV antibiotics adjusted to daptomycin yesterday as per ID. Complains of abdominal pain accompanied by nausea, no emesis, denies diarrhea. Denies shortness of breath, chest pain, cough or sore throat. Earlier this morning complained of midsternal pain as well as right side of back pain. 01/02/2020 urine culture reporting ESBL .maintained on daptomycin as per ID. Continues on IV fluid hydration. Complains of abdominal tenderness and left lower leg pain. Evaluated by GI with recommendations noted and appreciated, but no endoscopy recommended at this time. Objective - Vital Signs Vital signs: Vital Signs Temp 98.4 F 01/02/20 07:29 Pulse 65 01/02/20 07:29 Resp 16 01/02/20 08:00 BP 149/79 01/02/20 07:29 Pulse Ox 95 01/02/20 07:29 Intake & Output 01/01/20 01/02/20 01/02/20 18:59 06:59 18:59 Intake Total 100 Output Total 150 Balance -150 100 Intake: Oral 100 Output: Urine 150 Other: Voiding Method Toilet Bedside Commode Bedside Commode Bedside Commode Incontinent # Voids 2 1 1 # Bowel Movements 1 - Exam General: well nourished, well developed, NAD. Vitals reviewed, tired appearing Eyes: PERRL, EOMI, conjunctiva normal HENT: normocephalic, mucus membranes moist Neck: supple, no JVD Lungs: normal respiratory effort, no wheezes or rales CV: Regular rate and rhythm, no murmur. Peripheral pulses 2+ Abdomen: soft, nondistended,mild diffuse tenderness , no organomegaly. Lymph: no cervical or axillary LAD Skin: warm and dry. Neuro: A&Ox3, normal mood and affect. Microbiology 12/30/19 17:17 Urine,Voided Urine Culture - Final Escherichia coli - Labs CBC & Chem 7: 01/02/20 05:52 01/02/20 05:52 Labs: Abnormal Lab Results - Last 24 Hours (Table) 01/01/20 01/01/20 01/01/20 Range/Units 12:12 16:53 20:37 BUN (7-17) mg/dL Creatinine (0.52-1.04) mg/dL Glucose (74-99) mg/dL POC Glucose (mg/dL) 144 H 211 H 125 H (75-99) mg/dL Calcium (8.4-10.2) mg/dL 01/02/20 01/02/20 Range/Units 05:52 06:35 BUN 4 L (7-17) mg/dL Creatinine 0.50 L (0.52-1.04) mg/dL Glucose 149 H (74-99) mg/dL POC Glucose (mg/dL) 152 H (75-99) mg/dL Calcium 8.1 L (8.4-10.2) mg/dL Microbiology - Last 24 Hours (Table) 12/30/19 17:17 Urine Culture - Final Urine,Voided Escherichia coli Assessment and Plan Assessment: (1) Sepsis due to ESBL UTI Current Visit: Yes Status: Acute Code(s): A41.50 - GRAM-NEGATIVE SEPSIS, UNSPECIFIED; N39.0 - URINARY TRACT INFECTION, SITE NOT SPECIFIED SNOMED Code(s): 551206163 (2) Recurrent sepsis due to urinary tract infection,ESBL Current Visit: Yes Status: Acute Code(s): A41.9 - SEPSIS, UNSPECIFIED ORGANISM; N39.0 - URINARY TRACT INFECTION, SITE NOT SPECIFIED SNOMED Code(s): 127511001 (3) Generalized weakness Current Visit: Yes Status: Acute Code(s): R53.1 - WEAKNESS SNOMED Code(s): 85239796 (4) Adrenal insufficiency Current Visit: No Status: Chronic Code(s): E27.40 - UNSPECIFIED ADRENOCORTICAL INSUFFICIENCY SNOMED Code(s): 948236863 (5) DM type 2 (diabetes mellitus, type 2) Current Visit: No Status: Chronic Code(s): E11.9 - TYPE 2 DIABETES MELLITUS WITHOUT COMPLICATIONS SNOMED Code(s): 18437731 (6) chronic migraines (7) abdominal pain, accompanied by nausea, etiology unclear, GI consulted Plan: Continue on current medication regime ,monitoring and symptomatic treatment. Doppler Ultrasound of left leg ordered to rule out DVT. Maintain PPI, gentle IV fluid hydration and IV antibiotics. Appetite poor, Glucerna supplements ordered.dietitian consulted. GI recommendations noted and appreciated. Pain management. Patient is postmenopausal, Infectious disease also recommending intravaginal estrogen cream at discharge to hopefully prevent recurrent UTIs . The impression and plan of care has been dictated as directed. : I performed a history and examination of this patient, discussed the same with the dictator. I agree with the dictator's note ,documented as a scribe. Any additional findings or plans will be noted.
[2020-01-02] MEDS ORDERED: HYDROmorphone 0.5 MG/0.5 ML SYRINGE IVP PRN (17:05)
[2020-01-02] MEDS ORDERED: KETOROLAC 30 MG/ML 1 ML VIAL IVP PRN (17:07)
[2020-01-02] MEDS: ERTAPENEM 1 GM in SODIUM CHLORIDE 0.9% 50 ML IVPB SCH (18:12)
[2020-01-02] MEDS ORDERED: HYDROmorphone 0.5 MG/0.5 ML SYRINGE IVP STA (20:32)
[2020-01-02] MEDS: METOPROLOL SUCCINATE (ER) 50 MG TAB.ER.24H PO SCH (21:07)
[2020-01-02 21:15] LABS: Glucose,Whole Blood 194 mg/dL (75-99)
--- NOTE | 2020-01-02 23:06 | P.PN ---
Subjective Progress Note Date: 01/02/20 Principal diagnosis: Nausea, acute diarrhea likely related to antibiotic Patient lying in bed in no acute complaints. Continues to have some loose stool. Objective - Vital Signs Vital signs: Vital Signs Temp 98.4 F 01/02/20 07:29 Pulse 65 01/02/20 07:29 Resp 16 01/02/20 08:00 BP 149/79 01/02/20 07:29 Pulse Ox 95 01/02/20 07:29 Intake & Output 01/01/20 01/02/20 01/02/20 18:59 06:59 18:59 Intake Total 100 Output Total 150 Balance -150 100 Intake: Oral 100 Output: Urine 150 Other: Voiding Method Toilet Bedside Commode Bedside Commode Bedside Commode Incontinent # Voids 2 1 1 # Bowel Movements 1 - Exam On physical examination, patient appears comfortable in no apparent distress. HEAD: Normocephalic, atraumatic. EYES: No scleral icterus. No conjunctival injection. MOUTH: No lesions, tongue midline. NECK: Trachea midline, no gross abnormalities. ABDOMEN: Soft, obese. Bowel sounds are positive. No organomegaly. No guarding or rigidity. EXTREMITIES: No pedal edema. SKIN: No rashes, no jaundice. NEUROLOGIC: Alert and oriented x3. No focal deficits. - Labs CBC & Chem 7: 01/02/20 05:52 01/02/20 05:52 Labs: Abnormal Lab Results - Last 24 Hours (Table) 01/01/20 01/01/20 01/01/20 Range/Units 12:12 16:53 20:37 BUN (7-17) mg/dL Creatinine (0.52-1.04) mg/dL Glucose (74-99) mg/dL POC Glucose (mg/dL) 144 H 211 H 125 H (75-99) mg/dL Calcium (8.4-10.2) mg/dL 01/02/20 01/02/20 01/02/20 Range/Units 05:52 06:35 11:43 BUN 4 L (7-17) mg/dL Creatinine 0.50 L (0.52-1.04) mg/dL Glucose 149 H (74-99) mg/dL POC Glucose (mg/dL) 152 H 221 H (75-99) mg/dL Calcium 8.1 L (8.4-10.2) mg/dL Microbiology - Last 24 Hours (Table) 12/30/19 17:17 Urine Culture - Final Urine,Voided Escherichia coli Assessment and Plan (1) Nausea Narrative/Plan: 69-year-old female with multiple medical comorbidities including recurrent urinary tract infections presenting to the hospital due to weakness currently receiving treatment for urinary tract infection. Patient with nausea with some decreased oral intake. Likely related to underlying UTI. Denies any reflux, peptic ulcer disease, NSAID use, or vomiting. Current Visit: Yes Status: Acute Code(s): R11.0 - NAUSEA SNOMED Code(s): 028960305 (2) Diarrhea Narrative/Plan: Patient reporting acute diarrhea since initiation of antibiotic therapy. Testing for Clostridium difficile was negative. Current Visit: No Status: Acute Code(s): R19.7 - DIARRHEA, UNSPECIFIED SNOMED Code(s): 19476063 Plan: Supportive care Okay for diet Continue Protonix twice a day Probiotic ordered X-ray abdomen ordered with absence of air seen on x-ray likely related to acute diarrhea in the setting of antibiotic therapy Okay for antidiarrheal as needed for antibiotic related diarrhea Thank you for allowing us to participate in the care of the patient, the GI service will stand by, please call us back with any questions or concerns
--- NOTE | 2020-01-02 23:14 | PN ---
PROGRESS NOTE DATE OF SERVICE: 01/02/2020 REASON FOR FOLLOWUP: ESBL E coli urinary tract infection. INTERVAL HISTORY: The patient is currently afebrile. She is breathing comfortably. Denies having any chest pain or shortness of breath, cough. Has been complaining of abdominal pain and diarrhea that started this morning. Her urinary symptoms seem to have improved, though. PHYSICAL EXAMINATION: Blood pressure is 156/78 with a pulse of 100, temperature 98.8. She is 95% on room air. General description is an elderly female lying in bed in no distress. RESPIRATORY SYSTEM: Unlabored breathing. Clear to auscultation anteriorly. HEART: S1, S2. Regular rate and rhythm. ABDOMEN: Soft. No tenderness. EXTREMITIES: No edema of the feet. LABS: Hemoglobin is 13.1, white count 6.4, BUN of 4 creatinine 0.50. Urine with ESBL E coli. DIAGNOSTIC IMPRESSION AND PLAN: Patient with recurrent extended-spectrum beta-lactamase Escherichia coli urinary tract infection. The patient is currently covered with Invanz, now with significant diarrhea, possibly antibiotic-associated. Stool for C difficile was checked and is negative. Add Questran for symptomatic relief. Will repeat her UA and culture; if overall normalized, to discontinue the Invanz. MMODL / IJN: [id number] /
[2020-01-02] MEDS ORDERED: hydrALAZINE HCL 20 MG/ML 1 ML VIAL IVP STA (23:42)
[2020-01-03 00:30] LABS: Appearance,Urine Clear (Clear); Bilirubin,Urine Negative (Negative); Blood,Urine Negative (Negative); Color,Urine Yellow; Glucose,Urine (UA) 2+ (Negative); Leukocyte Esterase,Urine Moderate (Negative); Mucus,Urine Rare /hpf; Nitrite,Urine Negative (Negative); Protein,Urine Trace (Negative); RBC,Urine 2 /hpf (0-5); Specific Gravity,Urine 1.011 (1.001-1.035); Urobilinogen,Urine <2.0 mg/dL (<2.0); WBC,Urine 34 /hpf (0-5)
[2020-01-03] MEDS: ONDANSETRON 4 MG/2 ML VIAL IVP PRN (00:35)
[2020-01-03 00:37] LABS: Ketones,Urine 2+ (Negative)
[2020-01-03 00:56] LABS: Glucose,Whole Blood 197 mg/dL (75-99)
[2020-01-03] MEDS: HYDROcodone/APAP 10-325MG 1 EACH TAB PO SCH ×3 (01:35→18:15)
[2020-01-03] MEDS: SODIUM CHLORIDE 0.9% 1,000 ML IV SCH (01:37)
[2020-01-03 06:42] LABS: Basophils % (A) 0 %; Eosinophils # (A) 0.3 k/uL (0-0.7); Eosinophils % (A) 6 %; HCT 40.3 % (34.0-46.0); HGB 13.8 gm/dL (11.4-16.0); Lymphocytes # (A) 1.2 k/uL (1.0-4.8); Lymphocytes % (A) 24 %; MCH 30.4 pg (25.0-35.0); MCHC 34.3 g/dL (31.0-37.0); MCV 88.5 fL (80.0-100.0); Mean Platelet Volume 8.2; Monocytes # (A) 0.3 k/uL (0-1.0); Monocytes % (A) 6 %; Neutrophils # (A) 3.2 k/uL (1.3-7.7); Neutrophils % (A) 62 %; Platelet Count 201 k/uL (150-450); RBC 4.56 m/uL (3.80-5.40); RDW 13.8 % (11.5-15.5); WBC 5.1 k/uL (3.8-10.6)
[2020-01-03] MEDS: METOCLOPRAMIDE 5 MG/ML 2 ML VIAL IVP PRN (06:49)
[2020-01-03 06:53] LABS: African American GFR (CKD) >90 (>60 ml/min/1.73 sqM); Anion Gap 9 mmol/L; Blood Urea Nitrogen 2 mg/dL (7-17); Calcium 8.5 mg/dL (8.4-10.2); Carbon Dioxide 25 mmol/L (22-30); Chloride 104 mmol/L (98-107); Glucose 157 mg/dL (74-99); Non-African American GFR(CKD) >90 (>60 ml/min/1.73 sqM); Potassium 3.7 mmol/L (3.5-5.1); Sodium 138 mmol/L (137-145)
[2020-01-03 06:56] LABS: Glucose,Whole Blood 139 mg/dL (75-99)
[2020-01-03] MEDS ORDERED: Potassium Replacement Protocol 1 EACH MISC MISCELLANE PRN ×2 (08:51→15:52)
[2020-01-03] MEDS ORDERED: HYDROmorphone 0.5 MG/0.5 ML SYRINGE IVP STA (09:15)
[2020-01-03] MEDS ORDERED: ACETAMINOPHEN IV (For NPO) 1,000 MG in EMPTY BAG 1 BAG IVPB ONE (09:16)
[2020-01-03] MEDS ORDERED: HYOSCYAMINE SULFATE 0.125 MG TAB PO PRN (09:16)
[2020-01-03] MEDS ORDERED: MAGNESIUM SULFATE-D5W PMX 1 GM in DEXTROSE/WATER 1 100ML.BAG IVPB ONE (09:16)
[2020-01-03] MEDS ORDERED: ONDANSETRON 4 MG TAB PO PRN (09:17)
[2020-01-03] MEDS: SPIRONOLACTONE 25 MG TAB PO SCH (09:18)
[2020-01-03] MEDS: VENLAFAXINE HCL ER 75 MG CAP PO SCH (09:19)
[2020-01-03] MEDS: PANTOPRAZOLE 40 MG TABLET PO SCH ×2 (09:19→17:01)
[2020-01-03] MEDS: HYDROCORTISONE 10 MG TAB PO SCH ×3 (09:19→21:28)
[2020-01-03] MEDS: CLOPIDOGREL 75 MG TAB PO SCH (09:19)
[2020-01-03] MEDS: ASPIRIN 81 MG PO SCH (09:19)
[2020-01-03] MEDS: LACTOBACILLUS ACIDOPH & BULGAR 1 EACH PACKET PO SCH ×2 (09:19→21:28)
[2020-01-03] MEDS: SIMETHICONE 80 MG CHEWABLE PO SCH ×4 (09:20→21:28)
[2020-01-03] MEDS: MAGNESIUM OXIDE 400 MG TAB PO SCH (09:20)
[2020-01-03] MEDS: INSULIN ASPART (NovoLOG) 100 UNIT/ML VIAL SQ SCH ×4 (09:22→21:26)
[2020-01-03] MEDS: lisinopriL 20 MG TAB PO SCH (10:25)
[2020-01-03 12:40] LABS: Glucose,Whole Blood 261 mg/dL (75-99)
[2020-01-03] MEDS: METOCLOPRAMIDE 5 MG TAB PO SCH ×3 (13:28→21:28)
--- NOTE | 2020-01-03 16:04 | P.PN ---
Subjective Progress Note Date: 01/03/20 Melissa Pena is a 69 yo F with PMH of recent UTI growing ESBL E coli requiring ertapenem course completed last month, T2DM, adrenal insufficiency, migraine, HTN who presented to the ED with a 3 day course of worsening weakness, unsteadiness and decreased appetite. She was seen in her PCP office and recom mended to present to the ED for further evaluation. She does complain of dysuria, urinary frequency and urgency. Pt denies fever or chills. On presentation she was tachycardic, WBC 9.7, lactic 2.4, UA with 4+ LE and positive for bacteria. 01/01/2020 urine culture reporting gram-negative bacilli. IV antibiotics adjusted to daptomycin yesterday as per ID. Complains of abdominal pain accompanied by nausea, no emesis, denies diarrhea. Denies shortness of breath, chest pain, cough or sore throat. Earlier this morning complained of midsternal pain as well as right side of back pain. 01/02/2020 urine culture reporting ESBL .maintained on daptomycin as per ID. Continues on IV fluid hydration. Complains of abdominal tenderness and left lower leg pain. Evaluated by GI with recommendations noted and appreciated, but no endoscopy recommended at this time. 01/03/2020 maintained on IV antibiotics of Invanz as per ID. Repeat UA in progress. Complains of significant nausea, weakness, shaking, right flank, right frontal headache. Poor diet intake, but consuming Glucerna supplements. Diarrhea improving on Questran. Dopplers reported negative for DVTs. Denies chest pain, palpitations or shortness of breath. Objective - Vital Signs Vital signs: Vital Signs Temp 97.9 F 01/03/20 08:00 Pulse 71 01/03/20 08:00 Resp 11 L 01/03/20 08:00 BP 168/70 01/03/20 08:00 Pulse Ox 93 L 01/03/20 08:00 Intake & Output 01/02/20 01/03/20 01/03/20 18:59 06:59 18:59 Intake Total 850 Balance 850 Weight 64 kg Intake: Intake, IV Titration 300 Amount Sodium Chloride 0.9% 1, 300 000 ml @ 50 mls/hr IV . Q20H [facility] Rx#:[id number] Oral 550 Other: Voiding Method Bedside Commode Bedside Commode Bedside Commode # Voids 0 1 # Bowel Movements 1 1 - Exam General: well nourished, well developed, NAD. Vitals reviewed, tired appearing Eyes: PERRL, EOMI, conjunctiva normal HENT: normocephalic, mucus membranes moist Neck: supple, no JVD Lungs: normal respiratory effort, no wheezes or rales CV: Regular rate and rhythm, no murmur. Peripheral pulses 2+ Abdomen: soft, nondistended,mild diffuse tenderness , no organomegaly. Skin: warm and dry. Neuro: A&Ox3, normal mood and affect. Microbiology 12/30/19 17:17 Urine,Voided Urine Culture - Final Escherichia coli - Labs CBC & Chem 7: 01/03/20 06:17 01/03/20 06:17 Labs: Abnormal Lab Results - Last 24 Hours (Table) 01/02/20 01/02/20 01/02/20 Range/Units 00:12 11:43 16:51 BUN (7-17) mg/dL Creatinine (0.52-1.04) mg/dL Glucose (74-99) mg/dL POC Glucose (mg/dL) 221 H 227 H (75-99) mg/dL Urine Protein Trace H (Negative) Urine Glucose (UA) 2+ H (Negative) Urine Ketones 2+ H (Negative) Ur Leukocyte Esterase Moderate H (Negative) Urine WBC 34 H (0-5) /hpf Urine Mucus Rare H (None) /hpf 01/02/20 01/03/20 01/03/20 Range/Units 21:09 00:48 06:17 BUN 2 L (7-17) mg/dL Creatinine 0.45 L (0.52-1.04) mg/dL Glucose 157 H (74-99) mg/dL POC Glucose (mg/dL) 194 H 197 H (75-99) mg/dL Urine Protein (Negative) Urine Glucose (UA) (Negative) Urine Ketones (Negative) Ur Leukocyte Esterase (Negative) Urine WBC (0-5) /hpf Urine Mucus (None) /hpf 01/03/20 Range/Units 06:45 BUN (7-17) mg/dL Creatinine (0.52-1.04) mg/dL Glucose (74-99) mg/dL POC Glucose (mg/dL) 139 H (75-99) mg/dL Urine Protein (Negative) Urine Glucose (UA) (Negative) Urine Ketones (Negative) Ur Leukocyte Esterase (Negative) Urine WBC (0-5) /hpf Urine Mucus (None) /hpf Microbiology - Last 24 Hours (Table) 01/02/20 00:12 Urine Culture - Preliminary Urine,Voided Assessment and Plan Assessment: (1) Sepsis due to ESBL UTI Current Visit: Yes Status: Acute Code(s): A41.50 - GRAM-NEGATIVE SEPSIS, UNSPECIFIED; N39.0 - URINARY TRACT INFECTION, SITE NOT SPECIFIED SNOMED Code(s): 648315076 (2) Recurrent sepsis due to urinary tract infection,ESBL Current Visit: Yes Status: Acute Code(s): A41.9 - SEPSIS, UNSPECIFIED ORGANISM; N39.0 - URINARY TRACT INFECTION, SITE NOT SPECIFIED SNOMED Code(s): 518822504 (3) Generalized weakness Current Visit: Yes Status: Acute Code(s): R53.1 - WEAKNESS SNOMED Code(s): 55088724 (4) Adrenal insufficiency Current Visit: No Status: Chronic Code(s): E27.40 - UNSPECIFIED ADRENOCORT ICAL INSUFFICIENCY SNOMED Code(s): 725703073 (5) DM type 2 (diabetes mellitus, type 2) Current Visit: No Status: Chronic Code(s): E11.9 - TYPE 2 DIABETES MELLITUS WITHOUT COMPLICATIONS SNOMED Code(s): 59947900 (6) chronic migraines,........ No Dilaudid. (7) abdominal pain, accompanied by nausea, etiology unclear, GI following. Plan: Continue on current medication regime ,monitoring and symptomatic treatment. Levsin added to med regime, Zofran dose increased, Reglan converted to oral. Continue PPI, Questran, gentle IV fluid hydration and IV antibiotics. Glucerna supplements. Pain management; patient continues requesting Dilaudid, r einforced using scheduled Grahn instead as Dilaudid contributing to nausea, withdrawal headaches/migranes. Dr. Gonsales ordered one last dose of Dilaudid today and patient understands no more will be given. Migraine cocktail ordered, consisting of magnesium and Ofirmev IV. ( Patient is postmenopausal, Infectious disease also recommending intravaginal estrogen cream at discharge to hopefully prevent recurrent UTIs .) The impression and plan of care has been dictated as directed. : I performed a history and examination of this patient, discussed the same with the dictator. I agree with the dictator's note ,documented as a scribe. Any additional findings or plans will be noted.
[2020-01-03 16:45] LABS: Glucose,Whole Blood 223 mg/dL (75-99)
[2020-01-03] MEDS: ERTAPENEM 1 GM in SODIUM CHLORIDE 0.9% 50 ML IVPB SCH (18:15)
[2020-01-03 21:24] LABS: Glucose,Whole Blood 273 mg/dL (75-99)
[2020-01-03] MEDS: METOPROLOL SUCCINATE (ER) 50 MG TAB.ER.24H PO SCH (21:29)
--- NOTE | 2020-01-03 23:12 | PN ---
PROGRESS NOTE DATE OF SERVICE: 01/03/2020 REASON FOR FOLLOWUP: ESBL E coli urinary tract infection. INTERVAL HISTORY: The patient is currently afebrile. The patient is breathing comfortably. The patient's overall diarrhea has improved. No abdominal pain. Still complains of urinary symptoms of burning, though. No chest pain, shortness of breath or cough. PHYSICAL EXAMINATION: Blood pressure 132/80 with a pulse of 66, temperature 98.2. She is 98% on room air. General description is an elderly female lying in bed in no distress. RESPIRATORY SYSTEM: Unlabored breathing. Clear to auscultation anteriorly. HEART: S1, S2. Regular rate and rhythm. ABDOMEN: Soft. No tenderness. LABS: Hemoglobin 13.8, white count 5.1. BUN of 2, creatinine 0.45. Repeat urine culture is currently pending. DIAGNOSTIC IMPRESSION AND PLAN: Patient with recurrent urinary tract infection in this cultures were positive for ESBL. Repeat urine is improved. Still complaining of some burning of urine. Pyridium will be added for symptomatic relief. Continue with Invanz and monitor her clinical course closely. MMODL / IJN: [id number] /
[2020-01-04] MEDS: SODIUM CHLORIDE 0.9% 1,000 ML IV SCH ×2 (00:40→20:52)
[2020-01-04] MEDS: HYDROcodone/APAP 10-325MG 1 EACH TAB PO SCH ×3 (02:02→18:24)
[2020-01-04] MEDS: lisinopriL 20 MG TAB PO SCH (06:14)
[2020-01-04 06:19] LABS: Glucose,Whole Blood 183 mg/dL (75-99)
[2020-01-04] MEDS: INSULIN ASPART (NovoLOG) 100 UNIT/ML VIAL SQ SCH ×4 (07:50→20:52)
[2020-01-04] MEDS: HYDROCORTISONE 10 MG TAB PO SCH ×3 (08:01→21:08)
[2020-01-04] MEDS: METOCLOPRAMIDE 5 MG TAB PO SCH ×4 (08:02→21:07)
[2020-01-04] MEDS: LACTOBACILLUS ACIDOPH & BULGAR 1 EACH PACKET PO SCH ×2 (08:03→21:08)
[2020-01-04] MEDS: VENLAFAXINE HCL ER 75 MG CAP PO SCH (08:10)
[2020-01-04] MEDS: PANTOPRAZOLE 40 MG TABLET PO SCH ×2 (08:10→17:18)
[2020-01-04] MEDS: SPIRONOLACTONE 25 MG TAB PO SCH (08:11)
[2020-01-04] MEDS: MAGNESIUM OXIDE 400 MG TAB PO SCH (08:11)
[2020-01-04] MEDS: ASPIRIN 81 MG PO SCH (08:11)
[2020-01-04] MEDS: SIMETHICONE 80 MG CHEWABLE PO SCH ×4 (08:12→21:08)
[2020-01-04] MEDS: CLOPIDOGREL 75 MG TAB PO SCH (08:12)
[2020-01-04] MEDS: PHENAZOPYRIDINE 200 MG TAB PO SCH ×3 (08:13→21:08)
[2020-01-04 11:21] LABS: Glucose,Whole Blood 246 mg/dL (75-99)
[2020-01-04 17:08] LABS: Glucose,Whole Blood 346 mg/dL (75-99)
[2020-01-04] MEDS: ERTAPENEM 1 GM in SODIUM CHLORIDE 0.9% 50 ML IVPB SCH (18:26)
[2020-01-04 20:41] LABS: Glucose,Whole Blood 239 mg/dL (75-99)
[2020-01-04] MEDS: METOPROLOL SUCCINATE (ER) 50 MG TAB.ER.24H PO SCH (21:07)
--- NOTE | 2020-01-04 21:35 | P.PN ---
Subjective Progress Note Date: 01/04/20 Principal diagnosis: Sepsis due to ESBL UTI Melissa Pena is a 69 yo F with PMH of recent UTI growing ESBL E coli requiring ertapenem course completed last month, T2DM, adrenal insufficiency, migraine, HTN who presented to the ED with a 3 day course of worsening weakness, unsteadiness and decreased appetite. She was seen in her PCP office and recommen ded to present to the ED for further evaluation. She does complain of dysuria, urinary frequency and urgency. Pt denies fever or chills. On presentation she was tachycardic, WBC 9.7, lactic 2.4, UA with 4+ LE and positive for bacteria. On 01/04/2020 -patient is comfortably lying in bed appears to be in no acute distress. No acute events reported by nursing staff. Patient still complains of discomfort in her lower abdomen. She complains of generalized weakness. She states that she participated in physical therapy and trying to get out of the bed with help. She denies having any chest pain or difficulty in breathing. No cough. No fever chills or rigors. Her diarrhea is improving. On reviewing her vitals patient's T-max 99.1 heart rate 87 respiratory rate 16, blood pressure 147 x 80 saturating in low 90's on room air. On reviewing the patient's labs, no new labs from this morning. Urine culture is positive for E. coli from 12/29 and positive for yeast species on 01/01. Active Medications Acetaminophen/Butalbital/Caffeine (Fioricet 50-325-40) 1 each PO QID PRN PRN Reason: Migraine Headache Last Admin: 12/31/19 20:31 Dose: 1 each Documented by: Hydrocodone Bitart/Acetaminophen ([place] 10) 1 each PO Q8H [facility] Last Admin: 01/04/20 18:24 Dose: 1 each Documented by: Aspirin (Aspirin) 81 mg PO DAILY [facility] Last Admin: 01/04/20 08:11 Dose: 81 mg Documented by: Clopidogrel Bisulfate (Plavix) 75 mg PO DAILY [facility] Last Admin: 01/04/20 08:12 Dose: 75 mg Documented by: Hydrocortisone (Cortef) 5 mg PO HS [facility] Last Admin: 01/04/20 21:08 Dose: 5 mg Documented by: Hydrocortisone (Cortef) 15 mg PO AC-BRKFST [facility] Last Admin: 01/04/20 08:01 Dose: 15 mg Documented by: Hydrocortisone (Cortef) 10 mg PO AC-LUNCH [facility] Last Admin: 01/04/20 12:16 Dose: 10 mg Documented by: Hyoscyamine (Levsin) 0.125 mg PO Q4H PRN PRN Reason: Abdominal Distention Ertapenem 1 gm/ Sodium (Chloride) 50 mls @ 100 mls/hr IVPB Q24H [facility]; Protocol Last Admin: 01/04/20 18:26 Dose: 100 mls/hr Documented by: Sodium Chloride (Saline 0.9%) 1,000 mls @ 50 mls/hr IV .Q20H [facility] Last Admin: 01/04/20 20:52 Dose: 50 mls/hr Documented by: Insulin Aspart (Novolog) 0 unit SQ [facility]; Protocol Last Admin: 01/04/20 20:52 Dose: 3 unit Documented by: Lactobacillus Acidoph/Bulgaricus (Lactinex) 1 each PO BID [facility] Last Admin: 01/04/20 21:08 Dose: 1 each Documented by: Lisinopril (Zestril) 20 mg PO W/BRKFST [facility] Last Admin: 01/04/20 06:14 Dose: 20 mg Documented by: Loperamide HCl (Imodium) 2 mg PO QID PRN PRN Reason: Diarrhea Last Admin: 01/02/20 16:36 Dose: 2 mg Documented by: Magnesium Oxide (Mag-Ox) 400 mg PO DAILY [facility] Last Admin: 01/04/20 08:11 Dose: 400 mg Documented by: Metoclopramide HCl (Reglan) 5 mg PO [facility] Last Admin: 01/04/20 21:07 Dose: 5 mg Documented by: Metoprolol Succinate (Toprol Xl) 50 mg PO [facility] Last Admin: 01/04/20 21:07 Dose: 50 mg Documented by: Miscellaneous Information (Potassium Per Protocol) 1 each MISCELLANE DAILY PRN; Protocol PRN Reason: Per Protocol Miscellaneous Information (Potassium Per Protocol) 1 each MISCELLANE DAILY PRN; Protocol PRN Reason: Per Protocol Naloxone HCl (Narcan) 0.2 mg IV Q2M PRN PRN Reason: Opioid Reversal Ondansetron HCl (Zofran) 8 mg PO Q8HR PRN PRN Reason: Nausea And Vomiting Last Admin: 01/03/20 22:55 Dose: 8 mg Documented by: Pantoprazole Sodium (Protonix) 40 mg PO AC-BID [facility] Last Admin: 01/04/20 17:18 Dose: 40 mg Documented by: Phenazopyridine HCl (Pyridium) 200 mg PO TID [facility] Last Admin: 01/04/20 21:08 Dose: 200 mg Documented by: Simethicone (Mylicon Chew) 40 mg PO ACHS [facility] Last Admin: 01/04/20 21:08 Dose: 40 mg Documented by: Spironolactone (Aldactone) 50 mg PO DAILY [facility] Last Admin: 01/04/20 08:11 Dose: 50 mg Documented by: Venlafaxine HCl (Effexor Xr) 75 mg PO DAILY [facility] Last Admin: 01/04/20 08:10 Dose: 75 mg Documented by: Objective - Vital Signs Vital signs: Vital Signs Temp 99.1 F 01/04/20 15:00 Pulse 87 01/04/20 15:00 Resp 16 01/04/20 15:00 BP 147/80 01/04/20 15:00 Pulse Ox 93 L 01/03/20 19:25 Intake & Output 01/03/20 01/04/20 01/04/20 18:59 06:59 18:59 Intake Total 340 240 Output Total 300 Balance 340 -60 Intake: Oral 240 240 Other 100 Output: Urine 300 Other: Voiding Method Bedside Commode Bedside Commode # Voids 1 1 1 # Bowel Movements 1 1 - Exam General: well nourished, well developed Eyes: PERRL, EOMI, conjunctiva normal HENT: normocephalic, mucus membranes moist Neck: supple, no JVD Lungs: normal respiratory effort, no wheezes or rales CV: Regular rate and rhythm, no murmur. Peripheral pulses 2+ Abdomen: soft, nondistended,mild diffuse tenderness , no organomegaly. Skin: warm and dry. Neuro: A&Ox3, normal mood and affect - Labs CBC & Chem 7: 01/03/20 06:17 01/03/20 06:17 Labs: Abnormal Lab Results - Last 24 Hours (Table) 01/03/20 01/04/20 01/04/20 Range/Units 21:22 06:17 11:20 POC Glucose (mg/dL) 273 H 183 H 246 H (75-99) mg/dL 01/04/20 Range/Units 17:07 POC Glucose (mg/dL) 346 H (75-99) mg/dL Microbiology - Last 24 Hours (Table) 01/02/20 00:12 Urine Culture - Preliminary Urine,Voided Yeast species Assessment and Plan Assessment: ASSESSMENT Sepsis secondary to ESBL UTI Recurrent UTI Generalized weakness Adrenal insufficiency Type 2 diabetes mellitus Chronic migraines Fibromyalgia Multiple joint osteoarthritis Obstructive sleep apnea Hyperlipidemia Hypertension PLAN: Continue the patient on ertapenem for ESBL E. coli, Dr. Osman infectious disease on board. Continue with the rest of her current medication regimen. Adjusting the insulin doses depending upon the blood sugars. PT/ OT on board. Lovenox for DVT prophylaxis. We will repeat CBC and BMP for tomorrow morning.Further recommendations depending on the progress of the patient.
[2020-01-04] MEDS ORDERED: ANIDULAFUNGIN 200 MG in SODIUM CHLORIDE 0.9% 200 ML IVPB ONE (22:32)
--- NOTE | 2020-01-04 23:34 | PN ---
PROGRESS NOTE DATE OF SERVICE: 01/04/2020 REASON FOR FOLLOWUP: ESBL E coli urinary tract infection. INTERVAL HISTORY: Patient is currently afebrile. Patient is breathing comfortably. The patient denies having any chest pain. No shortness of breath or cough. No further nausea, vomiting or diarrhea. Still has some urinary burning. EXAMINATION: Blood pressure 147/80 with a pulse of 87, temperature 99.1. She is 100% on room air. General description is an elderly female lying in bed in no distress. Respiratory system: Unlabored breathing, clear to auscultation anteriorly. Heart S1, S2. Regular rate and rhythm. Abdomen soft, no tenderness. LABS: Urine did not show any yeast species. DIAGNOSTIC IMPRESSION AND PLAN: Patient with ESBL E coli urinary tract infection, adequately treated, repeat urine now showing yeast. We will add Eraxis. Diflucan could not be added because of the ( ) and discontinue the Invanz. MMODL / IJN: [id number] /
[2020-01-05] MEDS: HYDROcodone/APAP 10-325MG 1 EACH TAB PO SCH ×3 (02:22→17:19)
[2020-01-05] MEDS: SODIUM CHLORIDE 0.9% 1,000 ML IV SCH (02:23)
[2020-01-05 06:46] LABS: Glucose,Whole Blood 188 mg/dL (75-99)
[2020-01-05 07:19] LABS: Basophils % (A) 1 %; Eosinophils # (A) 0.3 k/uL (0-0.7); Eosinophils % (A) 5 %; HCT 40.4 % (34.0-46.0); HGB 12.9 gm/dL (11.4-16.0); Lymphocytes # (A) 1.7 k/uL (1.0-4.8); Lymphocytes % (A) 28 %; MCH 28.6 pg (25.0-35.0); MCHC 31.9 g/dL (31.0-37.0); MCV 89.6 fL (80.0-100.0); Mean Platelet Volume 8.1; Monocytes # (A) 0.5 k/uL (0-1.0); Monocytes % (A) 8 %; Neutrophils # (A) 3.3 k/uL (1.3-7.7); Neutrophils % (A) 55 %; Platelet Count 187 k/uL (150-450); RBC 4.51 m/uL (3.80-5.40); RDW 13.9 % (11.5-15.5)
[2020-01-05 07:28] LABS: African American GFR (CKD) >90 (>60 ml/min/1.73 sqM); Anion Gap 8 mmol/L; Blood Urea Nitrogen 8 mg/dL (7-17); Calcium 8.4 mg/dL (8.4-10.2); Carbon Dioxide 26 mmol/L (22-30); Chloride 103 mmol/L (98-107); Glucose 185 mg/dL (74-99); Non-African American GFR(CKD) 90 (>60 ml/min/1.73 sqM); Potassium 3.8 mmol/L (3.5-5.1); Sodium 137 mmol/L (137-145)
[2020-01-05] MEDS: HYDROCORTISONE 10 MG TAB PO SCH ×3 (07:33→20:46)
[2020-01-05] MEDS: SIMETHICONE 80 MG CHEWABLE PO SCH ×4 (07:33→20:47)
[2020-01-05] MEDS: lisinopriL 20 MG TAB PO SCH (07:33)
[2020-01-05] MEDS: METOCLOPRAMIDE 5 MG TAB PO SCH ×4 (07:33→20:47)
[2020-01-05] MEDS: INSULIN ASPART (NovoLOG) 100 UNIT/ML VIAL SQ SCH ×4 (07:35→20:46)
[2020-01-05] MEDS: PANTOPRAZOLE 40 MG TABLET PO SCH ×2 (07:39→17:14)
[2020-01-05] MEDS: ASPIRIN 81 MG PO SCH (08:33)
[2020-01-05] MEDS: MAGNESIUM OXIDE 400 MG TAB PO SCH (08:34)
[2020-01-05] MEDS: SPIRONOLACTONE 25 MG TAB PO SCH (08:34)
[2020-01-05] MEDS: LACTOBACILLUS ACIDOPH & BULGAR 1 EACH PACKET PO SCH ×2 (08:34→20:47)
[2020-01-05] MEDS: VENLAFAXINE HCL ER 75 MG CAP PO SCH (08:34)
[2020-01-05] MEDS: PHENAZOPYRIDINE 200 MG TAB PO SCH ×3 (08:34→20:48)
[2020-01-05] MEDS: ENOXAPARIN 40 MG/0.4 ML SYRINGE SQ SCH (08:35)
[2020-01-05] MEDS: CLOPIDOGREL 75 MG TAB PO SCH (08:45)
[2020-01-05 11:28] LABS: Glucose,Whole Blood 292 mg/dL (75-99)
--- NOTE | 2020-01-05 16:16 | P.PN ---
Subjective Progress Note Date: 01/05/20 Principal diagnosis: Sepsis due to ESBL E coli Melissa Pena is a 69 yo F with PMH of recent UTI growing ESBL E coli requiring ertapenem course completed last month, T2DM, adrenal insufficiency, migraine, HTN who presented to the ED with a 3 day course of worsening weakness, uns teadiness and decreased appetite. She was seen in her PCP office and recommended to present to the ED for further evaluation. She does complain of dysuria, urinary frequency and urgency. Pt denies fever or chills. On presentation she was tachycardic, WBC 9.7, lactic 2.4, UA with 4+ LE and positive for bacteria. On 01/04/2020 -patient is comfortably lying in bed appears to be in no acute distress. No acute events reported by nursing staff. Patient still complains of discomfort in her lower abdomen. She complains of generalized weakness. She states that she participated in physical therapy and trying to get out of the bed with help. She denies having any chest pain or difficulty in breathing. No cough. No fever chills or rigors. Her diarrhea is improving. On reviewing her vitals patient's T-max 99.1 heart rate 87 respiratory rate 16, blood pressure 147 x 80 saturating in low 90's on room air. On reviewing the patient's labs, no new labs from this morning. Urine culture is positive for E. coli from 12/29 and positive for yeast species on 01/01. On 01/05/2020- patient is lying comfortably in bed appears to be no acute distress. She complains of generalized weakness. She states that it is difficult for herself out of the bed all by herself. Patient denies having any weakness of upper or lower extremities. She denies having any slurring of speech, no headaches or visual disturbances. She states that in the past 2 months, she had 4 infections, and that is having an effect on her overall health. She is currently working with physical therapy. Patient's urine culture was positive for yeast, so she has been started on Anidulafungin by Dr. Osman. On reviewing patient's vitals are T-max is 99.0, heart rate 78, respiratory rate 16, blood pressure 127-70, saturating at 90% on room air. Patient denies having any chest pain or difficulty in breathing. No abdominal pain nausea vomiting or diarrhea. Labs from this morning have been reviewed. Active Medications Acetaminophen/Butalbital/Caffeine (Fioricet 50-325-40) 1 each PO QID PRN PRN Reason: Migraine Headache Last Admin: 12/31/19 20:31 Dose: 1 each Documented by: Hydrocodone Bitart/Acetaminophen ([place] 10) 1 each PO Q8H [facility] Last Admin: 01/05/20 10:19 Dose: 1 each Documented by: Aspirin (Aspirin) 81 mg PO DAILY [facility] Last Admin: 01/05/20 08:33 Dose: 81 mg Documented by: Clopidogrel Bisulfate (Plavix) 75 mg PO DAILY [facility] Last Admin: 01/05/20 08:45 Dose: 75 mg Documented by: Enoxaparin Sodium (Lovenox) 40 mg SQ DAILY [facility] Last Admin: 01/05/20 08:35 Dose: 40 mg Documented by: Hydrocortisone (Cortef) 5 mg PO [facility] Last Admin: 01/04/20 21:08 Dose: 5 mg Documented by: Hydrocortisone (Cortef) 15 mg PO AC-BRKFST [facility] Last Admin: 01/05/20 07:33 Dose: 15 mg Documented by: Hydrocortisone (Cortef) 10 mg PO AC-LUNCH [facility] Last Admin: 01/05/20 12:35 Dose: 10 mg Documented by: Hyoscyamine (Levsin) 0.125 mg PO Q4H PRN PRN Reason: Abdominal Distention Sodium Chloride (Saline 0.9%) 1,000 mls @ 50 mls/hr IV .Q20H [facility] Last Admin: 01/05/20 02:23 Dose: 50 mls/hr Documented by: Anidulafungin 100 mg/ Sodium (Chloride) 100 mls @ 84 mls/hr IVPB [facility] Insulin Aspart (Novolog) 0 unit SQ ACHS [facility]; Protocol Last Admin: 01/05/20 12:20 Dose: 5 unit Documented by: Lactobacillus Acidoph/Bulgaricus (Lactinex) 1 each PO BID [facility] Last Admin: 01/05/20 08:34 Dose: 1 each Documented by: Lisinopril (Zestril) 20 mg PO W/BRKFST [facility] Last Admin: 01/05/20 07:33 Dose: 20 mg Documented by: Loperamide HCl (Imodium) 2 mg PO QID PRN PRN Reason: Diarrhea Last Admin: 01/02/20 16:36 Dose: 2 mg Documented by: Magnesium Oxide (Mag-Ox) 400 mg PO DAILY [facility] Last Admin: 01/05/20 08:34 Dose: 400 mg Documented by: Metoclopramide HCl (Reglan) 5 mg PO [facility] Last Admin: 01/05/20 12:35 Dose: 5 mg Documented by: Metoprolol Succinate (Toprol Xl) 50 mg PO HS [facility] Last Admin: 01/04/20 21:07 Dose: 50 mg Documented by: Miscellaneous Information (Potassium Per Protocol) 1 each MISCELLANE DAILY PRN; Protocol PRN Reason: Per Protocol Miscellaneous Information (Potassium Per Protocol) 1 each MISCELLANE DAILY PRN; Protocol PRN Reason: Per Protocol Naloxone HCl (Narcan) 0.2 mg IV Q2M PRN PRN Reason: Opioid Reversal Ondansetron HCl (Zofran) 8 mg PO Q8HR PRN PRN Reason: Nausea And Vomiting Last Admin: 01/03/20 22:55 Dose: 8 mg Documented by: Pantoprazole Sodium (Protonix) 40 mg PO AC-BID [facility] Last Admin: 01/05/20 07:39 Dose: 40 mg Documented by: Phenazopyridine HCl (Pyridium) 200 mg PO TID [facility] Last Admin: 01/05/20 15:39 Dose: 200 mg Documented by: Simethicone (Mylicon Chew) 40 mg PO [facility] Last Admin: 01/05/20 12:35 Dose: 40 mg Documented by: Spironolactone (Aldactone) 50 mg PO DAILY [facility] Last Admin: 01/05/20 08:34 Dose: 50 mg Documented by: Venlafaxine HCl (Effexor Xr) 75 mg PO DAILY [facility] Last Admin: 01/05/20 08:34 Dose: 75 mg Documented by: Objective - Vital Signs Vital signs: Vital Signs Temp 99.0 F 01/05/20 15:00 Pulse 68 01/05/20 15:00 Resp 16 01/05/20 15:00 BP 127/70 01/05/20 15:00 Pulse Ox 90 L 01/05/20 15:00 Intake & Output 01/04/20 01/05/20 01/05/20 18:59 06:59 18:59 Intake Total 240 Balance 240 Intake: Oral 240 Other: Voiding Method Bedside Commode # Voids 1 1 2 - Exam General: well nourished, well developed Eyes: PERRL, EOMI, conjunctiva normal HENT: normocephalic, mucus membranes moist Neck: supple, no JVD Lungs: normal respiratory effort, no wheezes or rales CV: Regular rate and rhythm, no murmur. Peripheral pulses 2+ Abdomen: soft, nondistended,mild diffuse tenderness , no organomegaly. Skin: warm and dry. Neuro: A&Ox3, no focal neurological deficits. No facial droop. Generalized weakness. - Labs CBC & Chem 7: 01/05/20 06:46 01/05/20 06:46 Labs: Abnormal Lab Results - Last 24 Hours (Table) 01/04/20 01/04/20 01/05/20 Range/Units 17:07 20:40 06:45 Glucose (74-99) mg/dL POC Glucose (mg/dL) 346 H 239 H 188 H (75-99) mg/dL 01/05/20 01/05/20 Range/Units 06:46 11:27 Glucose 185 H (74-99) mg/dL POC Glucose (mg/dL) 292 H (75-99) mg/dL Microbiology - Last 24 Hours (Table) 01/02/20 00:12 Urine Culture - Final Urine,Voided Irma albicans Assessment and Plan Assessment: ASSESSMENT Sepsis secondary to ESBL UTI Recurrent UTI Generalized weakness Adrenal insufficiency Type 2 diabetes mellitus Chronic migraines Fibromyalgia Multiple joint osteoarthritis Obstructive sleep apnea Hyperlipidemia Hypertension PLAN: She completed ertapenem for ESBL E. coli. As the repeat urine culture is growing yeast infection, she is started on Anidulafungin by Dr. Osman. Continue with the rest of her current medication regimen. Adjusting the insulin doses depending upon the blood sugars. PT/ OT on board. Lovenox for DVT prophylaxis. Further recommendations depending on the progress of the patient.
[2020-01-05 16:35] LABS: Glucose,Whole Blood 315 mg/dL (75-99)
[2020-01-05 20:29] LABS: Glucose,Whole Blood 293 mg/dL (75-99)
[2020-01-05] MEDS: ANIDULAFUNGIN 100 MG in SODIUM CHLORIDE 0.9% 100 ML IVPB SCH (20:45)
[2020-01-05] MEDS: METOPROLOL SUCCINATE (ER) 50 MG TAB.ER.24H PO SCH (20:47)
--- NOTE | 2020-01-06 00:32 | PN ---
PROGRESS NOTE DATE OF SERVICE: 01/05/2020 REASON FOR FOLLOWUP: Urinary tract infection, recurrent. INTERVAL HISTORY: The patient is currently afebrile. The patient is feeling better. Breathing comfortably. The patient denies having any chest pain. No shortness of breath or cough. No further nausea, vomiting, diarrhea and urinary symptoms have improved. PHYSICAL EXAMINATION: Blood pressure is 127/70 with a pulse of 68, temperature 99. She is 90% on room air. General description is an elderly female lying in bed in no distress. RESPIRATORY SYSTEM: Unlabored breathing, clear to auscultation anteriorly. HEART: S1, S2. Regular rate and rhythm. ABDOMEN: Soft, no tenderness. LABS: Hemoglobin is 12.9, white count 6.0, BUN of 8, creatinine 0.67. Urine with Irma albicans. DIAGNOSTIC IMPRESSION AND PLAN: Patient with recurrent urinary tract infection. Initial cultures were positive for ESBL Escherichia coli. Repeat is now showing Irma albicans. The patient is on Effexor and Zofran that use of Diflucan and the patient has been given Eraxis. She will get her third dose tomorrow. It should be enough for cystitis with no plan for any IV antibiotic or antifungal on discharge. MMODL / IJN: [id number] /
[2020-01-06] MEDS: HYDROcodone/APAP 10-325MG 1 EACH TAB PO SCH ×2 (02:21→11:24)
[2020-01-06 07:04] LABS: Glucose,Whole Blood 187 mg/dL (75-99)
[2020-01-06] MEDS: HYDROCORTISONE 10 MG TAB PO SCH ×2 (07:24→11:53)
[2020-01-06] MEDS: INSULIN ASPART (NovoLOG) 100 UNIT/ML VIAL SQ SCH ×2 (07:24→11:54)
[2020-01-06] MEDS: VENLAFAXINE HCL ER 75 MG CAP PO SCH (07:25)
[2020-01-06] MEDS: LACTOBACILLUS ACIDOPH & BULGAR 1 EACH PACKET PO SCH (07:25)
[2020-01-06] MEDS: SPIRONOLACTONE 25 MG TAB PO SCH (07:25)
[2020-01-06] MEDS: CLOPIDOGREL 75 MG TAB PO SCH (07:25)
[2020-01-06] MEDS: ASPIRIN 81 MG PO SCH (07:25)
[2020-01-06] MEDS: BUTALB/APAP/CAFF 50-325-40MG TAB PO PRN (07:25)
[2020-01-06] MEDS: ENOXAPARIN 40 MG/0.4 ML SYRINGE SQ SCH (07:25)
[2020-01-06] MEDS: PHENAZOPYRIDINE 200 MG TAB PO SCH ×2 (07:26→17:13)
[2020-01-06] MEDS: lisinopriL 20 MG TAB PO SCH (07:26)
[2020-01-06] MEDS: SIMETHICONE 80 MG CHEWABLE PO SCH ×2 (07:26→11:53)
[2020-01-06] MEDS: PANTOPRAZOLE 40 MG TABLET PO SCH (07:26)
[2020-01-06] MEDS: MAGNESIUM OXIDE 400 MG TAB PO SCH (07:26)
[2020-01-06] MEDS: METOCLOPRAMIDE 5 MG TAB PO SCH ×2 (07:26→11:53)
[2020-01-06 07:52] VITALS: RESP 18
[2020-01-06 11:43] LABS: Glucose,Whole Blood 268 mg/dL (75-99)
[2020-01-06] MEDS: SODIUM CHLORIDE 0.9% 1,000 ML IV SCH (11:46)
[2020-01-06] MEDS ORDERED: lisinopriL 10 MG TAB PO STA (11:52)
[2020-01-06] MEDS ORDERED: amLODIPine 5 MG TAB PO SCH (12:00)
--- NOTE | 2020-01-06 13:05 | PN ---
PROGRESS NOTE DATE OF SERVICE: 01/06/2020 REASON FOR FOLLOWUP: Recurrent urinary tract infection. INTERVAL HISTORY: Patient is currently afebrile. The patient is breathing comfortably. The patient denies having any chest pain. No shortness of breath or cough. No nausea, vomiting, abdominal pain. Diarrhea has resolved and urinary symptoms have improved. PHYSICAL EXAMINATION: Blood pressure is 173/100 with a pulse of 71, temperature 98.4, she is 95% on room air. General description is an elderly female up in the chair in no distress. Respiratory system: Unlabored breathing. Lungs are clear to auscultation anteriorly. Heart S1, S2. Regular rate and rhythm. Abdomen with no tenderness. LABS: No new labs have been obtained today. DIAGNOSTIC IMPRESSION AND PLAN: Patient with recurrent urinary tract infection. Initial urine was positive for ESBL E coli that has been adequately treated. Repeat urine is showing Irma albicans. The patient has been on multiple medications that contraindicate the use of Diflucan. She will be given 3 doses of Eraxis that should be enough for cystitis. No antibiotic on discharge, though recommend intravaginal estrogen cream to prevent recurrent UTIs. MMODL / IJN: [id number] /
[2020-01-06] MEDS: ANIDULAFUNGIN 100 MG in SODIUM CHLORIDE 0.9% 100 ML IVPB SCH (13:12)
[2020-01-06 15:06] VITALS: BP 165/85; PULSE 99; TEMP 98.3
[2020-01-07] MEDS ORDERED: lisinopriL 10 MG TAB PO SCH (07:30)
[2020-01-07] MEDS ORDERED: ANIDULAFUNGIN 100 MG in SODIUM CHLORIDE 0.9% 100 ML IVPB SCH (13:00)
== END 2020-01-06 17:00 | disposition home health service (06) | DRG 872 ==
LOC: EC 16:09 → 1SOBS 18:41 → OBSVTOIN 01-01 15:04 → 4SSUR 01-05 10:09
PROVIDERS: ADMIT Family Medicine; ATTEND Family Medicine
DX: A41.59 Other Gram-negative sepsis (principal); N39.0 Urinary tract infection, site not specified; E27.40 Unspecified adrenocortical insufficiency; K52.1 Toxic gastroenteritis and colitis; G43.909 Migraine, unspecified, not intractable, without status migrainosus; G47.33 Obstructive sleep apnea (adult) (pediatric); I10 Essential (primary) hypertension; E11.9 Type 2 diabetes mellitus without complications; E78.5 Hyperlipidemia, unspecified; M79.7 Fibromyalgia; A41.51 Sepsis due to Escherichia coli [E. coli]; T45.1X5A Adverse effect of antineoplastic and immunosuppressive drugs, initial encounter; M19.90 Unspecified osteoarthritis, unspecified site; Z11.59 Encounter for screening for other viral diseases; Z79.02 Long term (current) use of antithrombotics/antiplatelets; Z79.4 Long term (current) use of insulin; Z79.82 Long term (current) use of aspirin; Z79.899 Other long term (current) drug therapy; Z88.1 Allergy status to other antibiotic agents; Z88.5 Allergy status to narcotic agent; Z88.0 Allergy status to penicillin; Z88.2 Allergy status to sulfonamides; Z88.8 Allergy status to other drugs, medicaments and biological substances; Z91.09 Other allergy status, other than to drugs and biological substances; Z87.440 Personal history of urinary (tract) infections; Z87.442 Personal history of urinary calculi; Z90.710 Acquired absence of both cervix and uterus; Z86.718 Personal history of other venous thrombosis and embolism; Z89.421 Acquired absence of other right toe(s); Z83.3 Family history of diabetes mellitus; Z82.49 Family history of ischemic heart disease and other diseases of the circulatory system; Z80.49 Family history of malignant neoplasm of other genital organs; Z90.49 Acquired absence of other specified parts of digestive tract; Z90.89 Acquired absence of other organs; Z98.890 Other specified postprocedural states; Z98.42 Cataract extraction status, left eye; Z98.41 Cataract extraction status, right eye; Z98.1 Arthrodesis status; Z87.01 Personal history of pneumonia (recurrent); Z86.14 Personal history of Methicillin resistant Staphylococcus aureus infection
CPT/HCPCS: 36415; 71046; 74018; 80048; 80053; 81001; 83605; 83735; 84484; 85025; 85610; 85730; 87077; 87086; 87186; 87324; 93005; 93970; 96374; 99285

== ENCOUNTER 2020-01-26 15:57 | Emergency (ER) | payer MEDICARE, BC ==
[2020-01-26 16:10] VITALS: RESP 18
--- NOTE | 2020-01-26 16:22 | ED ---
General Adult HPI - General Chief complaint: Abdominal Pain Stated complaint: UTI Time Seen by Provider: 01/26/20 16:04 Source: patient, EMS Mode of arrival: EMS - History of Present Illness Initial comments: Dictation was produced using hiyalife dictation software. please excuse any grammatical, word or spelling errors. This patient was cared for during a federal and state declared state of emergency secondary to Covid 19 Chief Complaint: 69-year-old female multiple comorbidities presents with concerns of urinary tract infection right lower quadrant abdominal pain. History of Present Illness: Patient is a 69-year-old female she is well-known to emergency department for multiple visitations for myriad of complaints.. Over the last 3-4 days patient is being concerned about urinary tract infection. She's been told multiple times that she's had UTI. The last time she had a UTI was 1 month ago. She's been having burning on urination. Patient also c omplains of mild right lower quadrant abdominal tenderness. States pain radiates to her back. Patient has a history of appendectomy. Denies any vaginal discharge or vaginal bleeding. No nausea or vomiting. The ROS documented in this emergency department record has been reviewed and confirmed by me. Those systems with pertinent positive or negative responses have been documented in the HPI. All other systems are other negative and/or noncontributory. PHYSICAL EXAM: General Impression: Alert and oriented x3, not in acute distress HEENT: Normocephalic atraumatic, extra-ocular movements intact, pupils equal and reactive to light bilaterally, mucous membranes moist. Cardiovascular: Heart regular rate and rhythm Chest: Able to complete full sentences, no retractions, no tachypnea Abdomen: abdomen soft, she reports mild tenderness to palpation right lower quadrant however when distracted she does not grimace or wince, non-distended, no organomegaly Musculoskeletal: Pulses present and equal in all extremities, no peripheral edema Motor: no focal deficits noted Neurological: CN II-XII grossly intact, no focal motor or sensory deficits noted Skin: Intact with no visualized rashes Psych: Normal affect and mood ED course: 69-year-old female presents with concerns of UTI and chief complaint of abdominal pain. Vital signs upon arrival are within acceptable limits. Physical examination is benign. Laboratory evaluation obtained. CBC is unremarkable. Metabolic panel is negative. Urinalysis does not show urinary tract infection. Patient reports that she is developing however she is well-appearing. He is concerned that patient is malingering. She is tolerating oral intake. Patient is advised follow-up with her primary care physician. She is heart rate improved at bed side. She is told to take her at home medications. Patient was found to be tachycardic at bedside. EKG shows sinus tachycardia. No SVT or serious dysrhythmia. Ventricular rate 133, sinus tachycardia,. 124, QRS 74, QTC 461 - Related Data Home Medications Medication Instructions Recorded Confirmed Cholecalciferol [Vitamin D3 (25 3,000 unit PO DAILY@0700 12/01/14 12/30/19 Mcg = 1000 Iu)] Metoprolol Succinate (ER) [Toprol 50 mg PO HS 07/06/17 12/30/19 XL] Meclizine [Antivert] 25 mg PO QID PRN 11/26/17 12/30/19 Hydrocortisone [Cortef] 15 mg PO AC-BRKFST 05/18/18 12/30/19 Hydrocortisone [Cortef] 5 mg PO HS 06/26/18 12/30/19 Glucagon Emergency Kit 1 mg IM ONCE PRN 08/12/18 12/30/19 Cranberry 300mg 300 mg PO BID 10/08/18 12/30/19 Ferrous Sulfate [Iron (65 MG 325 mg PO DAILY 10/08/18 12/30/19 Elemental)] Folic Acid 0.4 mg PO DAILY 10/08/18 12/30/19 L.acidoph,Paracasei, B.lactis 2 cap PO BID 10/08/18 12/30/19 [Probiotic] Melatonin 5 mg PO HS PRN 10/08/18 12/30/19 Multivitamins, Thera Liquid 30 ml PO DAILY 10/08/18 12/30/19 [Theragran Liquid (formulary)] Potassium 99 mg PO DAILY 10/08/18 12/30/19 Thiamine [Vitamin B-1] 100 mg PO DAILY 10/08/18 12/30/19 Vitamin B-Complex Drops 1 ml PO BID 10/08/18 12/30/19 Pantoprazole [Protonix] 40 mg PO BID 01/29/19 12/30/19 Hydrocortisone [Cortef] 10 mg PO AC-LUNCH 08/30/19 12/30/19 Venlafaxine HCl [Effexor XR] 75 mg PO DAILY 11/08/19 12/30/19 Acetaminophen Tab [Tylenol] 1,000 mg PO Q6HR PRN 12/06/19 12/30/19 Butalb/APAP/Caff 50-325-40Mg 1 tab PO QID PRN 12/06/19 12/30/19 [Fioricet 50-325-40] Clopidogrel [Plavix] 75 mg PO DAILY 12/06/19 12/30/19 Magnesium Oxide [Mag-Ox] 400 mg PO DAILY 12/06/19 12/30/19 Ondansetron HCl [Zofran] 4 mg PO Q6H PRN 12/06/19 12/30/19 Prochlorperazine [Compazine] 10 mg PO BID 12/06/19 12/30/19 Promethazine 6.25MG/5Ml [Phenergan 6.25 mg PO Q6H PRN 12/06/19 12/30/19 Syrup] Insulin Aspart [NovoLOG Flexpen] See Protocol SQ AC-TID 12/30/19 12/30/19 Spironolactone [Aldactone] 50 mg PO DAILY 12/30/19 12/30/19 Previous Rx's Medication Instructions Recorded Aspirin 81 mg PO DAILY #0 07/02/18 Atorvastatin [Lipitor] 40 mg PO HS #30 tab 11/16/18 HYDROcodone/APAP 10-325MG [[place] 1 tab PO Q8H PRN #0 01/06/20 10-325] Insulin Glargine,Hum.rec.anlog 20 unit SQ HS@2200 #0 01/06/20 [Lantus Solostar] lisinopriL [Zestril] 30 mg PO W/BRKFST #45 tab 01/06/20 Allergies Allergy/AdvReac Type Severity Reaction Status Date / Time butorphanol tartrate Allergy BLISTERS Verified 12/30/19 19:35 [From Stadol] IN MOUTH ceftriaxone [From Rocephin] Allergy Unknown Verified 12/30/19 19:35 clarithromycin [From Biaxin] Allergy Rash/Hives Verified 12/30/19 19:35 codeine Allergy Rash/Hives Verified 12/30/19 19:35 ergotamine tartrate Allergy Unknown Verified 12/30/19 19:35 [From Cafergot] erythromycin base Allergy RASH, GI Verified 12/30/19 19:35 [From E-Mycin] SYMPTOMS ketorolac tromethamine Allergy Rash/Hives Verified 12/30/19 19:35 [From Toradol] liraglutide [From Victoza] Allergy Rash/Hives Verified 12/30/19 19:35 morphine Allergy Rash/Hives Verified 12/30/19 19:35 Penicillins Allergy Rash/Hives Verified 12/30/19 19:35 pentazocine lactate Allergy SEVERE Verified 12/30/19 19:35 [From Talwin] BLISTERS IN MOUTH pregabalin [From Lyrica] Allergy Rash/Hives Verified 12/30/19 19:35 propoxyphene HCl Allergy Rash/Hives Verified 12/30/19 19:35 [From Darvon] Sulfa (Sulfonamide Allergy Rash/Hives Verified 12/30/19 19:35 Antibiotics) tramadol Allergy Unknown Verified 12/30/19 19:35 monosodium glutamate [MSG] AdvReac Nausea & Verified 12/30/19 19:35 Vomiting nalbuphine HCl [From Nubain] AdvReac Nausea & Verified 12/30/19 19:35 Vomiting Review of Systems ROS Statement: Those systems with pertinent positive or pertinent negative responses have been documented in the HPI. ROS Other: All systems not noted in ROS Statement are negative. Past Medical History Past Medical History: Diabetes Mellitus, Deep Vein Thrombosis (DVT), Fibromyalgia, Hyperlipidemia, Hypertension, Osteoarthritis (OA), Pneumonia, Renal Disease, Sleep Apnea/CPAP/BIPAP, Vascular Disorder Additional Past Medical History / Comment(s): Pt recently admitted to [facility] on 11/28/19 with recurerent UTI. 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, DVT R calf in 1976, cardiac murmur, occipital neuraligia, balance issues-has narrowing of vessels "in the back of my head", vertigo, varicosities, states rt shoulder torn rotator cuff History of Any Multi-Drug Resistant Organisms: ESBL, MRSA, VRE Date of last positivie culture/infection: 11/09/19 ESBL; 03/10/11 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 MDRO Source:: ESBL URINE; MRSA 4th rt TOE VRE URINE Past Surgical History: Appendectomy, Back Surgery, Bladder Surgery, Breast Surgery, Cholecystectomy, Heart Catheterization, Hysterectomy, Orthopedic Surgery, Tonsillectomy Additional Past Surgical History / Comment(s): Lumbar fusions, bladder suspe nsion, occipital nerve blocks, 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, R wrist/elbow nerve repair, bone removed R shoulder, 4th toe R foot partial amputation, bilateral feet/bunionectomies, R knee arthroscopies, R orbit decompression with ethmoidectomy and eyelid lift, EGD, colonoscopies, cystocopies, lithotripsy/stents, bilateral breast reduction, bilateral cataract removals, parathyroid surgery - April 2019, pain clinic procedures Past Anesthesia/Blood Transfusion Reactions: No Reported Reaction Additional Past Anesthesia/Blood Transfusion Reaction / Comment(s): never recieved blood Past Psychological History: No Psychological Hx Reported Past Alcohol Use History: None Reported Past Drug Use History: None Reported - Past Family History Father Family Medical History: Coronary Artery Disease (CAD), CVA/TIA, Diabetes Mellitus, Myocardial Infarction ([place]), Pneumonia Additional Family Medical History / Comment(s): Father at the age of 78yrs from [place] and pneumonia. Mother Family Medical History: Cancer Additional Family Medical History / Comment(s): Mother had uterine cancer. She recently at the age of 96yrs old from [place]. Course Vital Signs 01/26/20 01/26/20 16:00 17:10 Temperature 97.9 F Pulse Rate 85 114 H Respiratory 18 18 Rate Blood Pressure 146/87 145/93 O2 Sat by Pulse 96 96 Oximetry Medical Decision Making - Lab Data Result diagrams: 01/26/20 16:27 01/26/20 16:27 Lab Results 01/26/20 01/26/20 01/26/20 Range/Units 16:27 16:27 17:05 WBC 10.9 H (3.8-10.6) k/uL RBC 5.03 (3.80-5.40) m/uL Hgb 14.4 (11.4-16.0) gm/dL Hct 45.1 (34.0-46.0) % MCV 89.5 (80.0-100.0) fL MCH 28.6 (25.0-35.0) pg MCHC 32.0 (31.0-37.0) g/dL RDW 14.3 (11.5-15.5) % Plt Count 251 (150-450) k/uL Neutrophils % 62 % Lymphocytes % 27 % Monocytes % 7 % Eosinophils % 3 % Basophils % 1 % Neutrophils # 6.8 (1.3-7.7) k/uL Lymphocytes # 2.9 (1.0-4.8) k/uL Monocytes # 0.7 (0-1.0) k/uL Eosinophils # 0.4 (0-0.7) k/uL Basophils # 0.1 (0-0.2) k/uL Sodium 137 (137-145) mmol/L Potassium 3.9 (3.5-5.1) mmol/L Chloride 100 (98-107) mmol/L Carbon Dioxide 26 (22-30) mmol/L Anion Gap 11 mmol/L BUN 10 (7-17) mg/dL Creatinine 0.72 (0.52-1.04) mg/dL Est GFR (CKD-EPI)AfAm >90 (>60 ml/min/1.73 sqM) Est GFR (CKD-EPI)NonAf 86 (>60 ml/min/1.73 sqM) Glucose 134 H (74-99) mg/dL Calcium 10.3 H (8.4-10.2) mg/dL Total Bilirubin 0.6 (0.2-1.3) mg/dL AST 22 (14-36) U/L ALT 18 (4-34) U/L Alkaline Phosphatase 78 (38-126) U/L Total Protein 6.7 (6.3-8.2) g/dL Albumin 4.4 (3.5-5.0) g/dL Lipase 85 (23-300) U/L Urine Color Yellow Urine Appearance Clear (Clear) Urine pH 6.5 (5.0-8.0) Ur Specific [place] 1.016 (1.001-1.035) Urine Protein Negative (Negative) Urine Glucose (UA) Negative (Negative) Urine Ketones 1+ H (Negative) Urine Blood Negative (Negative) Urine Nitrite Negative (Negative) Urine Bilirubin Negative (Negative) Urine Urobilinogen <2.0 (<2.0) mg/dL Ur Leukocyte Esterase Trace H (Negative) Urine RBC 1 (0-5) /hpf Urine WBC 3 (0-5) /hpf Ur Squamous Epith Cells 2 (0-4) /hpf Urine Bacteria Rare H (None) /hpf Hyaline Casts 3 H (0-2) /lpf Urine Mucus Rare H (None) /hpf Disposition Clinical Impression: Abdominal pain Disposition: HOME SELF-CARE Condition: Fair Instructions (If sedation given, give patient instructions): Abdominal Pain (ED) Is patient prescribed a controlled substance at d/c from ED?: No Referrals: Andrew Gonsales MD [Primary Care Provider] - 1-2 days Time of Disposition: 18:04
[2020-01-26] MEDS ORDERED: MORPHINE SULFATE 4 MG/ML SYRINGE IV STA (16:23)
[2020-01-26] MEDS ORDERED: HYDROmorphone 0.5 MG/0.5 ML SYRINGE IVP STA ×2 (16:30→18:05)
[2020-01-26] MEDS ORDERED: SODIUM CHLORIDE 0.9% 500 ML 500 ML IV STA (16:30)
[2020-01-26 16:41] LABS: Basophils # (A) 0.1 k/uL (0-0.2); Basophils % (A) 1 %; Eosinophils # (A) 0.4 k/uL (0-0.7); Eosinophils % (A) 3 %; HCT 45.1 % (34.0-46.0); HGB 14.4 gm/dL (11.4-16.0); Lymphocytes # (A) 2.9 k/uL (1.0-4.8); Lymphocytes % (A) 27 %; MCH 28.6 pg (25.0-35.0); MCV 89.5 fL (80.0-100.0); Mean Platelet Volume 8.5; Monocytes # (A) 0.7 k/uL (0-1.0); Monocytes % (A) 7 %; Neutrophils # (A) 6.8 k/uL (1.3-7.7); Neutrophils % (A) 62 %; Platelet Count 251 k/uL (150-450); RBC 5.03 m/uL (3.80-5.40); RDW 14.3 % (11.5-15.5); WBC 10.9 k/uL (3.8-10.6)
[2020-01-26] MEDS ORDERED: ONDANSETRON 4 MG/2 ML VIAL IVP STA (16:41)
[2020-01-26 16:56] LABS: ALT 18 U/L (4-34); AST 22 U/L (14-36); African American GFR (CKD) >90 (>60 ml/min/1.73 sqM); Albumin 4.4 g/dL (3.5-5.0); Alkaline Phosphatase 78 U/L (38-126); Anion Gap 11 mmol/L; Blood Urea Nitrogen 10 mg/dL (7-17); Calcium 10.3 mg/dL (8.4-10.2); Carbon Dioxide 26 mmol/L (22-30); Chloride 100 mmol/L (98-107); Glucose 134 mg/dL (74-99); Non-African American GFR(CKD) 86 (>60 ml/min/1.73 sqM); Potassium 3.9 mmol/L (3.5-5.1); Sodium 137 mmol/L (137-145); Total Bilirubin 0.6 mg/dL (0.2-1.3); Total Protein 6.7 g/dL (6.3-8.2)
[2020-01-26 17:45] VITALS: PULSE 114
[2020-01-26 17:50] LABS: Appearance,Urine Clear (Clear); Bacteria,Urine Rare /hpf; Bilirubin,Urine Negative (Negative); Blood,Urine Negative (Negative); Color,Urine Yellow; Glucose,Urine (UA) Negative (Negative); Hyaline Casts,Urine 3 /lpf (0-2); Ketones,Urine 1+ (Negative); Leukocyte Esterase,Urine Trace (Negative); Mucus,Urine Rare /hpf; Nitrite,Urine Negative (Negative); PH, Urine 6.5 (5.0-8.0); Protein,Urine Negative (Negative); RBC,Urine 1 /hpf (0-5); Specific Gravity,Urine 1.016 (1.001-1.035); Squamous Epithelial Cell,Urine 2 /hpf (0-4); Urobilinogen,Urine <2.0 mg/dL (<2.0); WBC,Urine 3 /hpf (0-5)
[2020-01-26 18:04] LABS: INR 1.3 (<1.2); Partial Thromboplastin Time 26.4 sec (22.0-30.0); Prothrombin Time 13.4 sec (9.0-12.0)
[2020-01-26 18:15] VITALS: BP 144/86; TEMP 100.6
== END 2020-01-26 18:28 | disposition home or self-care (01) ==
LOC: EC 15:57
DX: R10.31 Right lower quadrant pain (principal); R00.0 Tachycardia, unspecified; E11.40 Type 2 diabetes mellitus with diabetic neuropathy, unspecified; G47.33 Obstructive sleep apnea (adult) (pediatric); E27.40 Unspecified adrenocortical insufficiency; M79.7 Fibromyalgia; I12.9 Hypertensive chronic kidney disease with stage 1 through stage 4 chronic kidney disease, or unspecified chronic kidney disease; E11.22 Type 2 diabetes mellitus with diabetic chronic kidney disease; N18.9 Chronic kidney disease, unspecified; E78.5 Hyperlipidemia, unspecified; Z79.02 Long term (current) use of antithrombotics/antiplatelets; Z79.51 Long term (current) use of inhaled steroids; Z79.4 Long term (current) use of insulin; Z79.899 Other long term (current) drug therapy; Z88.0 Allergy status to penicillin; Z88.5 Allergy status to narcotic agent; Z88.8 Allergy status to other drugs, medicaments and biological substances; Z88.1 Allergy status to other antibiotic agents; Z88.6 Allergy status to analgesic agent; Z88.2 Allergy status to sulfonamides; Z86.718 Personal history of other venous thrombosis and embolism; Z90.710 Acquired absence of both cervix and uterus; Z89.421 Acquired absence of other right toe(s); Z90.49 Acquired absence of other specified parts of digestive tract; Z90.89 Acquired absence of other organs; Z99.89 Dependence on other enabling machines and devices; Z87.442 Personal history of urinary calculi
CPT/HCPCS: 99284; 96374; 96375; 96376; 96361 ×2; 36415; 93005; 80053; 83690; 85025; 85610; 85730; 81001; J2405; J1170

== ENCOUNTER 2020-01-27 14:01 | Inpatient (IN) | payer MEDICARE, BC ==
[2020-01-27] MEDS ORDERED: SODIUM CHLORIDE 0.9% 500 ML 500 ML IV STA (14:30)
[2020-01-27] MEDS ORDERED: HYDROmorphone 1 MG/ML 1 ML SYRINGE IVP STA (14:31)
[2020-01-27 14:44] LABS: Basophils # (A) 0.1 k/uL (0-0.2); Basophils % (A) 1 %; Eosinophils # (A) 0.4 k/uL (0-0.7); Eosinophils % (A) 4 %; HCT 44.9 % (34.0-46.0); HGB 14.4 gm/dL (11.4-16.0); Lymphocytes # (A) 2.6 k/uL (1.0-4.8); Lymphocytes % (A) 26 %; MCH 28.7 pg (25.0-35.0); MCV 89.6 fL (80.0-100.0); Mean Platelet Volume 8.3; Monocytes # (A) 0.6 k/uL (0-1.0); Monocytes % (A) 6 %; Neutrophils # (A) 6.1 k/uL (1.3-7.7); Neutrophils % (A) 61 %; Platelet Count 257 k/uL (150-450); RBC 5.01 m/uL (3.80-5.40); RDW 14.4 % (11.5-15.5)
[2020-01-27 14:56] LABS: Albumin 4.4 g/dL (3.5-5.0); Calcium 10.1 mg/dL (8.4-10.2); Potassium 4.2 mmol/L (3.5-5.1); Total Bilirubin 0.6 mg/dL (0.2-1.3); Total Protein 6.6 g/dL (6.3-8.2)
--- NOTE | 2020-01-27 15:08 | CT ---
EXAMINATION TYPE: CT brain wo con DATE OF EXAM: 01/27/2020 HISTORY: Slurred speech, weakness. CT DLP: 1084.4 mGycm. Automated Exposure Control for Dose Reduction was Utilized. TECHNIQUE: CT scan of the head is performed without contrast. COMPARISON: CT brain November 08, 2019.. FINDINGS: There is no acute intracranial hemorrhage or midline shift identified. There is diffuse v entricular and sulcal prominence consistent with diffuse age-related cerebral atrophy. There is low- attenuation in the periventricular white matter consistent with chronic small vessel ischemic change. Partially calcified and opacified left maxillary sinus redemonstrated. Bilateral exophthalmos again seen. Elongated globes redemonstrated. Intraconal fat is preserved. IMPRESSION: No acute intracranial hemorrhage or midline shift. There is mild diffuse age-related ce rebral atrophy and moderate chronic small vessel ischemic change redemonstrated. No significant gomez ge from prior CT.
--- NOTE | 2020-01-27 15:11 | XR ---
EXAMINATION TYPE: XR chest 2V DATE OF EXAM: 01/27/2020 COMPARISON: Chest x-ray December 30, 2019. HISTORY: Altered mental status and weakness. TECHNIQUE: Frontal and lateral views of the chest are obtained. FINDINGS: There is chronic parenchymal changes elevated right hemidiaphragm. There is no new suspici ous focal air space opacity, pleural effusion, or pneumothorax seen. The cardiac silhouette size rem ains enlarged with ectatic thoracic aorta. The osseous structures remain demineralized. Cholecystec dalila clips are noted on lateral view. IMPRESSION: Chronic changes and cardiomegaly without acute pulmonary process. No significant change from prior.
[2020-01-27 15:15] LABS: INR 0.9 (<1.2); Prothrombin Time 9.6 sec (9.0-12.0)
--- NOTE | 2020-01-27 15:29 | ED ---
General Adult HPI - General Chief complaint: Neuro Symptoms/Deficit Stated complaint: Slurred Speech, Diarrhea Time Seen by Provider: 01/27/20 14:17 Source: patient, family, RN notes reviewed, old records reviewed Mode of arrival: wheelchair Limitations: no limitations - History of Present Illness Initial comments: 69-year-old female presenting for evaluation of slurred speech for the past 24 hours. Additionally patient complains of right-sided abdominal pain. Denies fever. She was seen in the emergency department yesterday with similar complaint. History is somewhat limited from this patient, history obtained from the patient's who is bedside. She has history of frequent urinary tract infections, initially thought her symptoms may be attributable to recurrent UTI. There is been no significant vomiting or fever.. - Related Data Home Medications Medication Instructions Recorded Confirmed Cholecalciferol [Vitamin D3 (25 3,000 unit PO DAILY@0700 12/01/14 01/27/20 Mcg = 1000 Iu)] Metoprolol Succinate (ER) [Toprol 50 mg PO HS 07/06/17 01/27/20 XL] Meclizine [Antivert] 25 mg PO QID PRN 11/26/17 01/27/20 Hydrocortisone [Cortef] 15 mg PO AC-BRKFST 05/18/18 01/27/20 Hydrocortisone [Cortef] 5 mg PO HS 06/26/18 01/27/20 Glucagon Emergency Kit 1 mg IM ONCE PRN 08/12/18 01/27/20 Cranberry 300mg 300 mg PO BID 10/08/18 01/27/20 Ferrous Sulfate [Iron (65 MG 325 mg PO DAILY 10/08/18 01/27/20 Elemental)] Folic Acid 0.4 mg PO DAILY 10/08/18 01/27/20 L.acidoph,Paracasei, B.lactis 2 cap PO BID 10/08/18 01/27/20 [Probiotic] Melatonin 5 mg PO HS PRN 10/08/18 01/27/20 Multivitamins, Thera Liquid 30 ml PO DAILY 10/08/18 01/27/20 [Theragran Liquid (formulary)] Potassium 99 mg PO DAILY 10/08/18 01/27/20 Thiamine [Vitamin B-1] 100 mg PO DAILY 10/08/18 01/27/20 Vitamin B-Complex Drops 1 ml PO BID 10/08/18 01/27/20 Pantoprazole [Protonix] 40 mg PO BID 01/29/19 01/27/20 Hydrocortisone [Cortef] 10 mg PO AC-LUNCH 08/30/19 01/27/20 Venlafaxine HCl [Effexor XR] 75 mg PO DAILY 11/08/19 01/27/20 Acetaminophen Tab [Tylenol] 1,000 mg PO Q6HR PRN 12/06/19 01/27/20 Butalb/APAP/Caff 50-325-40Mg 1 tab PO QID PRN 12/06/19 01/27/20 [Fioricet 50-325-40] Clopidogrel [Plavix] 75 mg PO DAILY 12/06/19 01/27/20 Magnesium Oxide [Mag-Ox] 400 mg PO DAILY 12/06/19 01/27/20 Ondansetron HCl [Zofran] 4 mg PO Q6H PRN 12/06/19 01/27/20 Prochlorperazine [Compazine] 10 mg PO BID 12/06/19 01/27/20 Promethazine 6.25MG/5Ml [Phenergan 6.25 mg PO Q6H PRN 12/06/19 01/27/20 Syrup] Insulin Aspart [NovoLOG Flexpen] See Protocol SQ AC-TID 12/30/19 01/27/20 Spironolactone [Aldactone] 50 mg PO DAILY 12/30/19 01/27/20 Previous Rx's Medication Instructions Recorded Aspirin 81 mg PO DAILY #0 07/02/18 Atorvastatin [Lipitor] 40 mg PO HS #30 tab 11/16/18 HYDROcodone/APAP 10-325MG [[place] 1 tab PO Q8H PRN #0 01/06/20 10-325] Insulin Glargine,Hum.rec.anlog 20 unit SQ HS@2200 #0 01/06/20 [Lantus Solostar] lisinopriL [Zestril] 30 mg PO W/BRKFST #45 tab 01/06/20 Allergies Allergy/AdvReac Type Severity Reaction Status Date / Time butorphanol tartrate Allergy BLISTERS Verified 01/27/20 16:26 [From Stadol] IN MOUTH ceftriaxone [From Rocephin] Allergy Unknown Verified 01/27/20 16:26 clarithromycin [From Biaxin] Allergy Rash/Hives Verified 01/27/20 16:26 codeine Allergy Rash/Hives Verified 01/27/20 16:26 ergotamine tartrate Allergy Unknown Verified 01/27/20 16:26 [From Cafergot] erythromycin base Allergy RASH, GI Verified 01/27/20 16:26 [From E-Mycin] SYMPTOMS ketorolac tromethamine Allergy Rash/Hives Verified 01/27/20 16:26 [From Toradol] liraglutide [From Victoza] Allergy Rash/Hives Verified 01/27/20 16:26 morphine Allergy Rash/Hives Verified 01/27/20 16:26 Penicillins Allergy Rash/Hives Verified 01/27/20 16:26 pentazocine lactate Allergy SEVERE Verified 01/27/20 16:26 [From Talwin] BLISTERS IN MOUTH pregabalin [From Lyrica] Allergy Rash/Hives Verified 01/27/20 16:26 propoxyphene HCl Allergy Rash/Hives Verified 01/27/20 16:26 [From Darvon] Sulfa (Sulfonamide Allergy Rash/Hives Verified 01/27/20 16:26 Antibiotics) tramadol Allergy Unknown Verified 01/27/20 16:26 monosodium glutamate [MSG] AdvReac Nausea & Verified 01/27/20 16:26 Vomiting nalbuphine HCl [From Nubain] AdvReac Nausea & Verified 01/27/20 16:26 Vomiting Review of Systems ROS Statement: Those systems with pertinent positive or pertinent negative responses have been documented in the HPI. ROS Other: All systems not noted in ROS Statement are negative. Past Medical History Past Medical History: Diabetes Mellitus, Deep Vein Thrombosis (DVT), Fibromyalgia, Hyperlipidemia, Hypertension, Osteoarthritis (OA), Pneumonia, Renal Disease, Sleep Apnea/CPAP/BIPAP, Vascular Disorder Additional Past Medical History / Comment(s): Pt recently admitted to [facility] on 11/28/19 with recurerent UTI. 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, DVT R calf in 1976, cardiac murmur, occipital neuraligia, balance issues-has narrowing of vessels "in the back of my head", vertigo, varicosities, states rt shoulder torn rotator cuff History of Any Multi-Drug Resistant Organisms: ESBL, MRSA, VRE Date of last positivie culture/infection: 11/09/19 ESBL; 03/10/11 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 MDRO Source:: ESBL URINE; MRSA 4th rt TOE VRE URINE Past Surgical History: Appendectomy, Back Surgery, Bladder Surgery, Breast Surgery, Cholecystectomy, Heart Catheterization, Hysterectomy, Orthopedic Surgery, Tonsillectomy Additional Past Surgical History / Comment(s): Lumbar fusions, bladder suspension, occipital nerve blocks, 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, R wrist/elbow nerve repair, bone removed R shoulder, 4th toe R foot partial amputation, bilateral feet/bunionectomies, R knee arthroscopies, R orbit decompression with ethmoidectomy and eyelid lift, EGD, colonoscopies, cystocopies, lithotripsy/stents, bilateral breast reduction, bilateral cataract removals, parathyroid surgery - April 2019, pain clinic procedures Past Anesthesia/Blood Transfusion Reactions: No Reported Reaction Additional Past Anesthesia/Blood Transfusion Reaction / Comment(s): never recieved blood Past Psychological History: No Psychological Hx Reported Smoking Status: Never smoker Past Alcohol Use History: None Reported Past Drug Use History: None Reported - Past Family History Father Family Medical History: Coronary Artery Disease (CAD), CVA/TIA, Diabetes Mellitus, Myocardial Infarction (CA), Pneumonia Additional Family Medical History / Comment(s): Father at the age of 78yrs from CA and pneumonia. Mother Family Medical History: Cancer Additional Family Medical History / Comment(s): Mother had uterine cancer. She recently at the age of 96yrs old from [email or web address]. General Exam Limitations: no limitations General appearance: alert, in no apparent distress Head exam: Present: atraumatic, normocephalic Eye exam: Present: normal appearance, PERRL, other (Bilateral proptosis, right eye ptosis) Neck exam: Present: normal inspection. Absent: tenderness, meningismus Respiratory exam: Present: normal lung sounds bilaterally. Absent: respiratory distress, wheezes Cardiovascular Exam: Present: regular rate, normal rhythm GI/Abdominal exam: Present: soft. Absent: distended, tenderness Extremities exam: Present: normal inspection, normal capillary refill. Absent: pedal edema Neurological exam: Present: alert, oriented X3, CN II-XII intact. Absent: motor sensory deficit Psychiatric exam: Present: anxious Skin exam: Present: warm, dry, intact, cyanosis, diaphoretic, pallor Course Vital Signs 01/27/20 14:07 Temperature 98.2 F Pulse Rate 132 H Respiratory 22 Rate Blood Pressure 121/72 O2 Sat by Pulse 93 L Oximetry EKG Findings - EKG Comments: EKG Findings:: EKG: Sinus tachycardia with frequent PVC, LVH no ST segment elevation rate of 124, MI interval 128, QRS duration 72, QTC 577. Medical Decision Making - Medical Decision Making 69-year-old female presenting with chief complaint of slurred speech which is been present for approximately 24 hours. Patient has a nonfocal neurologic exam otherwise. Patient was not a TPA candidate as she was at approximately 24 hours since symptom onset at the time of arrival. She is currently on Plavix. Head CT performed which is negative for any acute intracranial hemorrhage or mass effect. Chest x-ray negative for acute cardiopulmonary disease. Patient has normal CBC, normal CMP, urinalysis is pending. She did have urinalysis performed yesterday which was normal. I discussed case at length with Dr. Gonsales, who will admit for neurology consultation and evaluation of dysarthria. - Lab Data Result diagrams: 01/27/20 14:26 01/27/20 14:26 Lab Results 01/27/20 01/27/20 01/27/20 Range/Units 14:26 14:26 14:26 WBC 10.0 (3.8-10.6) k/uL RBC 5.01 (3.80-5.40) m/uL Hgb 14.4 (11.4-16.0) gm/dL Hct 44.9 (34.0-46.0) % MCV 89.6 (80.0-100.0) fL MCH 28.7 (25.0-35.0) pg MCHC 32.0 (31.0-37.0) g/dL RDW 14.4 (11.5-15.5) % Plt Count 257 (150-450) k/uL Neutrophils % 61 % Lymphocytes % 26 % Monocytes % 6 % Eosinophils % 4 % Basophils % 1 % Neutrophils # 6.1 (1.3-7.7) k/uL Lymphocytes # 2.6 (1.0-4.8) k/uL Monocytes # 0.6 (0-1.0) k/uL Eosinophils # 0.4 (0-0.7) k/uL Basophils # 0.1 (0-0.2) k/uL PT 9.6 (9.0-12.0) sec INR 0.9 (<1.2) APTT 19.7 L (22.0-30.0) sec Sodium 138 (137-145) mmol/L Potassium 4.2 (3.5-5.1) mmol/L Chloride 102 (98-107) mmol/L Carbon Dioxide 23 (22-30) mmol/L Anion Gap 13 mmol/L BUN 11 (7-17) mg/dL Creatinine 0.78 (0.52-1.04) mg/dL Est GFR (CKD-EPI)AfAm 89 (>60 ml/min/1.73 sqM) Est GFR (CKD-EPI)NonAf 78 (>60 ml/min/1.73 sqM) Glucose 127 H (74-99) mg/dL Calcium 10.1 (8.4-10.2) mg/dL Total Bilirubin 0.6 (0.2-1.3) mg/dL AST 25 (14-36) U/L ALT 18 (4-34) U/L Alkaline Phosphatase 79 (38-126) U/L Troponin I (0.000-0.034) ng/mL Total Protein 6.6 (6.3-8.2) g/dL Albumin 4.4 (3.5-5.0) g/dL 01/27/20 Range/Units 14:26 WBC (3.8-10.6) k/uL RBC (3.80-5.40) m/uL Hgb (11.4-16.0) gm/dL Hct (34.0-46.0) % MCV (80.0-100.0) fL MCH (25.0-35.0) pg MCHC (31.0-37.0) g/dL RDW (11.5-15.5) % Plt Count (150-450) k/uL Neutrophils % % Lymphocytes % % Monocytes % % Eosinophils % % Basophils % % Neutrophils # (1.3-7.7) k/uL Lymphocytes # (1.0-4.8) k/uL Monocytes # (0-1.0) k/uL Eosinophils # (0-0.7) k/uL Basophils # (0-0.2) k/uL PT (9.0-12.0) sec INR (<1.2) APTT (22.0-30.0) sec Sodium (137-145) mmol/L Potassium (3.5-5.1) mmol/L Chloride (98-107) mmol/L Carbon Dioxide (22-30) mmol/L Anion Gap mmol/L BUN (7-17) mg/dL Creatinine (0.52-1.04) mg/dL Est GFR (CKD-EPI)AfAm (>60 ml/min/1.73 sqM) Est GFR (CKD-EPI)NonAf (>60 ml/min/1.73 sqM) Glucose (74-99) mg/dL Calcium (8.4-10.2) mg/dL Total Bilirubin (0.2-1.3) mg/dL AST (14-36) U/L ALT (4-34) U/L Alkaline Phosphatase (38-126) U/L Troponin I 0.027 (0.000-0.034) ng/mL Total Protein (6.3-8.2) g/dL Albumin (3.5-5.0) g/dL Disposition Clinical Impression: Transient cerebral ischemia Disposition: ADMITTED IP TO THIS [facility] Condition: Stable Is patient prescribed a controlled substance at d/c from ED?: No Referrals: Andrew Gonsales MD [Primary Care Provider] - 1-2 days Decision to Admit Reason: Admit from EC Decision Date: 01/27/20 Decision Time: 16:36
[2020-01-27 15:37] LABS: Partial Thromboplastin Time 19.7 sec (22.0-30.0)
[2020-01-27] MEDS ORDERED: ONDANSETRON 4 MG/2 ML VIAL IVP STA (16:06)
[2020-01-27 16:39] LABS: Appearance,Urine Cloudy (Clear); Bacteria,Urine Occasional /hpf; Bilirubin,Urine Negative (Negative); Blood,Urine Negative (Negative); Color,Urine Yellow; Glucose,Urine (UA) Negative (Negative); Hyaline Casts,Urine 5 /lpf (0-2); Ketones,Urine 1+ (Negative); Leukocyte Esterase,Urine Moderate (Negative); Mucus,Urine Occasional /hpf; Nitrite,Urine Positive (Negative); PH, Urine 5.5 (5.0-8.0); Protein,Urine Trace (Negative); RBC,Urine 2 /hpf (0-5); Specific Gravity,Urine 1.024 (1.001-1.035); Squamous Epithelial Cell,Urine 2 /hpf (0-4); Urobilinogen,Urine <2.0 mg/dL (<2.0); WBC,Urine 84 /hpf (0-5)
[2020-01-27] MEDS: SODIUM CHLORIDE 0.9% 1,000 ML IV SCH (16:52)
[2020-01-27] MEDS: HYDROmorphone 0.5 MG/0.5 ML SYRINGE IVP PRN ×2 (16:52→20:15)
[2020-01-27] MEDS ORDERED: BUTALB/APAP/CAFF 50-325-40MG TAB PO PRN (22:15)
[2020-01-27] MEDS: METOPROLOL SUCCINATE (ER) 50 MG TAB.ER.24H PO SCH (23:45)
[2020-01-27] MEDS: ACETAMINOPHEN TAB 500 MG TAB PO SCH (23:47)
[2020-01-28] MEDS: HYDROCORTISONE 10 MG TAB PO SCH ×3 (00:14→21:49)
[2020-01-28 00:27] LABS: Glucose,Whole Blood 128 mg/dL (75-99)
[2020-01-28] MEDS: ONDANSETRON 4 MG TAB PO PRN ×4 (00:32→20:22)
[2020-01-28] MEDS: HYDROcodone/APAP 10-325MG 1 EACH TAB PO PRN ×2 (01:21→08:28)
[2020-01-28 03:34] LABS: Cholesterol 178 mg/dL (<200); HDL Cholesterol 41 mg/dL (40-60); LDL Cholesterol,Calculated 93 mg/dL (0-99); Triglycerides 220 mg/dL (<150)
[2020-01-28] MEDS: SODIUM CHLORIDE 0.9% 1,000 ML IV SCH ×3 (06:46→23:28)
[2020-01-28] MEDS: ACETAMINOPHEN TAB 500 MG TAB PO SCH ×3 (06:46→17:30)
[2020-01-28] MEDS: lisinopriL 20 MG TAB PO SCH (06:47)
[2020-01-28 06:58] LABS: Glucose,Whole Blood 126 mg/dL (75-99)
[2020-01-28] MEDS: SPIRONOLACTONE 25 MG TAB PO SCH (08:13)
[2020-01-28] MEDS: VENLAFAXINE HCL ER 75 MG CAP PO SCH (08:13)
[2020-01-28] MEDS: MAGNESIUM OXIDE 400 MG TAB PO SCH (08:13)
[2020-01-28] MEDS: ASPIRIN 81 MG PO SCH (08:13)
[2020-01-28] MEDS: PANTOPRAZOLE 40 MG TABLET PO SCH ×2 (08:13→21:47)
[2020-01-28] MEDS: CLOPIDOGREL 75 MG TAB PO SCH (08:13)
[2020-01-28] MEDS: HYDROmorphone 0.5 MG/0.5 ML SYRINGE IVP PRN ×3 (09:53→21:45)
[2020-01-28 11:38] LABS: Glucose,Whole Blood 138 mg/dL (75-99)
[2020-01-28] MEDS ORDERED: HYDROCORTISONE 10 MG TAB PO SCH (12:30)
[2020-01-28] MEDS: ACETAMINOPHEN TAB 325 MG TAB PO PRN (13:09)
[2020-01-28] MEDS: ERTAPENEM 1 GM in SODIUM CHLORIDE 0.9% 50 ML IVPB SCH (14:11)
--- NOTE | 2020-01-28 14:46 | P.CNNES ---
History of Present Illness Consult date: 01/28/20 Requesting physician: Familia Gallegos Reason for Consult: Dysarthria History of Present Illness: This is a 69-year-old right-handed female with history of medically intractable migraine, old right basal ganglia infarct, bilateral vertebral artery stenosis, DM for past 5-6 years, hyperlipidemia, sleep apnea, fibromyalgia, hypertension that has recurrent admissions to the hospital for medically intractable migraines that presented to the emergency department on 01/27/2020 for slurred speech since evening of 01/25/2020. On 01/25/2020 she had having dysuria, and color of urine was dark yellow as well right abdominal pain which was similar to her UTI symptoms from past. But during the night of 01/24 she was accompanied with her and had slurring of speech, difficulty getting her words out and her speech was garbled. She denied of any focal weakness, vision change, dysphagia or sensory symtoms. She denies of similar symptoms in the past. Her slurred speech and language is back to baseline since 01/27/20. She denies tobacco use or illicit drug use. Patient is on aspirin 81 mg, Plavix 75mg and Lipitor 40 mg. Patient's workup in the hospital so far included: On presentation the patient's vitals was blood pressure 121/72 with a heart rate was 132, respiratory was 93 L at room air, temperature was 98.2 Fahrenheit orally. Close to midnight on 01/27/2020 the patient had a temperature of 100.[address] of the head (01/27/20) which was reported as no acute intracranial hemorrhage or midline shift. There is mild diffuse age-related cerebral atrophy and moderate the chronic small vessel ischemic changes redemonstrated. No significant change from a prior CT. EKG was reported as sinus tachycardia with frequent premature ventricular complexes. Voltage criteria for left ventricular hypertrophy. ST and T-wave abnormality, consider inferior ischemia. The ventricular rate of 124. Lipid profile: The cholesterol level was 220, cholestrol 178, LDL 93, HDL 41. CRP was 56.6. UA revealed leukocyte esterase was moderate the nitrite was positive urine bacteria was occasional and suggestive of urinary tract infection. She was seen by the neurology team at the [facility] multiple times of for intractable migraine and last for intractable migraines was on 10/28/19 and last seen by neurology team on 11/09/19 for generalized weakness and had ataxia. The neurologist on service recommended Plavix 75 mg to be added on top of the aspirin as well as to continue the statin because the patient had bilateral vertebral artery stenosis. She follows-up with Dr. Barry for her Migraine. Last MRI of the brain in our system was on the 09/19/2019 and was read as patchy periventricular white matter hyperintensity, likely on the basis of chronic white matter ischemic changes. And it was stable from 2017 comparison. And it shows old right basal ganglia lacunar infarct. She also had a CTA of the [place] of [place] on the 11/09/2019 and was reported as severe atherosclerosis of the basilar vertebral arteries at the level of the C1 with short segment area of stenosis of greater than 70%. Mr. Lucian insufficiency is therefore possible. Right internal carotid artery terminus 2 mm saccular aneurysm. A palpable bony exostosis of the left middle cranial fossa The prior MRI and therefore likely represents a benign bony exostenosis. Review of Systems Review of system: The 12 point system was reviewed and apparent positive and ne gative per HPI. Past Medical History Past Medical History: Diabetes Mellitus, Deep Vein Thrombosis (DVT), Fibromyalgia, Hyperlipidemia, Hypertension, Osteoarthritis (OA), Pneumonia, Renal Disease, Sleep Apnea/CPAP/BIPAP, Vascular Disorder Additional Past Medical History / Comment(s): Pt recently admitted to [facility] on 11/28/19 with recurerent UTI. 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, DVT R calf in 1976, cardiac murmur, occipital neuraligia, balance issues-has narrowing of vessels "in the back of my head", vertigo, varicosities, states rt shoulder torn rotator cuff History of Any Multi-Drug Resistant Organisms: ESBL, MRSA, VRE Date of last positivie culture/infection: 11/09/19 ESBL; 03/10/11 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 MDRO Source:: ESBL URINE; MRSA 4th rt TOE VRE URINE Past Surgical History: Appendectomy, Back Surgery, Bladder Surgery, Breast Surgery, Cholecystectomy, Heart Catheterization, Hysterectomy, Orthopedic Surgery, Tonsillectomy Additional Past Surgical History / Comment(s): Lumbar fusions, bladder suspension, occipital nerve blocks, 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, R wrist/elbow nerve repair, bone removed R shoulder, 4th toe R foot partial amputation, bilateral feet/bunionectomies, R knee arthroscopies, R orbit decompression with ethmoidectomy and eyelid lift, EGD, colonoscopies, cystocopies, lithotripsy/stents, bilateral breast reduction, bilateral cataract removals, parathyroid surgery - April 2019, pain clinic procedures Past Anesthesia/Blood Transfusion Reactions: No Reported Reaction Additional Past Anesthesia/Blood Transfusion Reaction / Comment(s): never recieved blood Past Psychological History: No Psychological Hx Reported Additional Psychological History / Comment(s): Pt resides with her spouse. She uses a walker. She normally drives. She has a nebulizer, cpap, bsc, shower chair, bp machine, dexcom monitor system for her bs. Smoking Status: Never smoker Past Alcohol Use History: None Reported Additional Past Alcohol Use History / Comment(s): no alcohol Past Drug Use History: None Reported - Past Family History Father Family Medical History: Coronary Artery Disease (CAD), CVA/TIA, Diabetes Mellitus, Myocardial Infarction ([place]), Pneumonia Additional Family Medical History / Comment(s): Father at the age of 78yrs from [place] and pneumonia. Mother Family Medical History: Cancer Additional Family Medical History / Comment(s): Mother had uterine cancer. She recently at the age of 96yrs old from [place]. Medications and Allergies Home Medications Medication Instructions Recorded Confirmed Type Cholecalciferol [Vitamin D3 (25 3,000 unit PO DAILY@0700 12/01/01/27/20 History Mcg = 1000 Iu)] Metoprolol Succinate (ER) [Toprol 50 mg PO HS 07/06/17 01/27/20 History XL] Meclizine [Antivert] 25 mg PO QID PRN 11/26/17 01/27/20 History Hydrocortisone [Cortef] 15 mg PO AC-BRKFST 05/18/18 01/27/20 History Hydrocortisone [Cortef] 5 mg PO HS 06/26/18 01/27/20 History Aspirin 81 mg PO DAILY #0 07/02/18 01/27/20 Rx Glucagon Emergency Kit 1 mg IM ONCE PRN 08/12/18 01/27/20 History Cranberry 300mg 300 mg PO BID 10/08/18 01/27/20 History Ferrous Sulfate [Iron (65 MG 325 mg PO DAILY 10/08/18 01/27/20 History Elemental)] Folic Acid 0.4 mg PO DAILY 10/08/18 01/27/20 History L.acidoph,Paracasei, B.lactis 2 cap PO BID 10/08/18 01/27/20 History [Probiotic] Melatonin 5 mg PO HS PRN 10/08/18 01/27/20 History Multivitamins, Thera Liquid 30 ml PO DAILY 10/08/18 01/27/20 History [Theragran Liquid (formulary)] Potassium 99 mg PO DAILY 10/08/18 01/27/20 History Thiamine [Vitamin B-1] 100 mg PO DAILY 10/08/18 01/27/20 History Vitamin B-Complex Drops 1 ml PO BID 10/08/18 01/27/20 History Atorvastatin [Lipitor] 40 mg PO HS #30 tab 11/16/18 01/27/20 Rx Pantoprazole [Protonix] 40 mg PO BID 01/29/19 01/27/20 History Hydrocortisone [Cortef] 10 mg PO AC-LUNCH 08/30/19 01/27/20 History Venlafaxine HCl [Effexor XR] 75 mg PO DAILY 11/08/19 01/27/20 History Acetaminophen Tab [Tylenol] 1,000 mg PO Q6HR PRN 12/06/19 01/27/20 History Butalb/APAP/Caff 50-325-40Mg 1 tab PO QID PRN 12/06/19 01/27/20 History [Fioricet 50-325-40] Clopidogrel [Plavix] 75 mg PO DAILY 12/06/19 01/27/20 History Magnesium Oxide [Mag-Ox] 400 mg PO DAILY 12/06/19 01/27/20 History Ondansetron HCl [Zofran] 4 mg PO Q6H PRN 12/06/19 01/27/20 History Prochlorperazine [Compazine] 10 mg PO BID 12/06/19 01/27/20 History Promethazine 6.25MG/5Ml [Phenergan 6.25 mg PO Q6H PRN 12/06/19 01/27/20 History Syrup] Insulin Aspart [NovoLOG Flexpen] See Protocol SQ AC-TID 12/30/19 01/27/20 History Spironolactone [Aldactone] 50 mg PO DAILY 12/30/19 01/27/20 History HYDROcodone/APAP 10-325MG [[place] 1 tab PO Q8H PRN #0 01/06/20 01/27/20 Rx 10-325] Insulin Glargine,Hum.rec.anlog 20 unit SQ HS@2200 #0 01/06/20 01/27/20 Rx [Lantus Solostar] lisinopriL [Zestril] 30 mg PO W/BRKFST #45 tab 01/06/20 01/27/20 Rx Allergies Allergy/AdvReac Type Severity Reaction Status Date / Time butorphanol tartrate Allergy BLISTERS Verified 01/27/20 16:26 [From Stadol] IN MOUTH ceftriaxone [From Rocephin] Allergy Unknown Verified 01/27/20 16:26 clarithromycin [From Biaxin] Allergy Rash/Hives Verified 01/27/20 16:26 codeine Allergy Rash/Hives Verified 01/27/20 16:26 ergotamine tartrate Allergy Unknown Verified 01/27/20 16:26 [From Cafergot] erythromycin base Allergy RASH, GI Verified 01/27/20 16:26 [From E-Mycin] SYMPTOMS ketorolac tromethamine Allergy Rash/Hives Verified 01/27/20 16:26 [From Toradol] liraglutide [From Victoza] Allergy Rash/Hives Verified 01/27/20 16:26 morphine Allergy Rash/Hives Verified 01/27/20 16:26 Penicillins Allergy Rash/Hives Verified 01/27/20 16:26 pentazocine lactate Allergy SEVERE Verified 01/27/20 16:26 [From Talwin] BLISTERS IN MOUTH pregabalin [From Lyrica] Allergy Rash/Hives Verified 01/27/20 16:26 propoxyphene HCl Allergy Rash/Hives Verified 01/27/20 16:26 [From Darvon] Sulfa (Sulfonamide Allergy Rash/Hives Verified 01/27/20 16:26 Antibiotics) tramadol Allergy Unknown Verified 01/27/20 16:26 monosodium glutamate [MSG] AdvReac Nausea & Verified 01/27/20 16:26 Vomiting nalbuphine HCl [From Nubain] AdvReac Nausea & Verified 01/27/20 16:26 Vomiting Physical Examination - Vital Signs Vital Signs: Vital Signs Temp Pulse Pulse Resp BP BP Pulse Ox 01/28/20 04:00 98.2 F 75 18 130/64 97 01/27/20 23:33 100.4 F H 114 H 18 148/73 97 01/27/20 20:43 113 H 14 01/27/20 20:24 99 F 113 H 14 96 01/27/20 20:08 98.3 F 111 H 14 148/78 98 01/27/20 18:30 99.0 F 112 H 19 130/77 94 L 01/27/20 18:00 116 H 17 129/90 94 L 01/27/20 17:30 123 H 20 159/84 96 01/27/20 17:00 111 H 20 144/81 98 01/27/20 16:00 115 H 18 154/97 97 01/27/20 15:30 115 H 17 146/67 94 L 01/27/20 14:30 124 H 24 147/86 92 L 01/27/20 14:07 98.2 F 132 H 22 121/72 93 L Intake and Output 01/27/20 01/28/20 01/28/20 22:59 06:59 14:59 Other: # Voids 1 1 Weight 63.503 kg GENERAL: The patient is lying in bed and is not in acute distress. CHEST: The heart rate is regular rate rhythm. No murmurs to auscultation. No carotid bruit bilaterally. LUNG: Clear to auscultation bilaterally no wheezing noted throughout. Not labored breathing. ABDOMEN/GI: Bowel sounds present in all 4 quadrants. No tenderness to palpation throughout. NEUROLOGICAL: Higher mental function: The patient is awake, alert, oriented to self, place and time. Patient is following commands. No aphasia and no neglect. Cranial nerves: The pupils are round, equal and reactive to light and accommodation. Visual hinds are full to confrontation throughout. Extraocular movement is intact no nystagmus is noted. Facial sensation is normal to touch throughout. The facial strength is normal throughout. Hearing is normal bilaterally to hand rub. Tongue is midline and moved [id number] without any difficulty. No dysarthria is noted. Shoulder shrug is normal bilaterally. Motor: The strength is 5 over 5 throughout. Normal tone and bulk. Cerebellum: Normal finger to nose heel to chin bilaterally. Sensation: Sensation is normal to touch throughout. Reflexes (right/left): 2+ in upper extremities and 1+ in lower extremities. Plantars are positioned up bilaterally without stimulation. Results - Laboratory Findings CBC and BMP: 01/27/20 14:26 01/27/20 14:26 Abnormal Lab Findings: Abnormal Labs 01/27/20 01/27/20 01/27/20 14:26 14:26 14:26 APTT 19.7 L Glucose 127 H POC Glucose (mg/dL) C-Reactive Protein Triglycerides Procalcitonin Urine Appearance Cloudy H Urine Protein Trace H Urine Ketones 1+ H Urine Nitrite Positive H Ur Leukocyte Esterase Moderate H Urine WBC 84 H Urine Bacteria Occasional H Hyaline Casts 5 H Urine Mucus Occasional H 01/27/20 01/27/20 01/28/20 14:26 14:26 00:26 APTT Glucose POC Glucose (mg/dL) 128 H C-Reactive Protein 56.6 H Triglycerides Procalcitonin 0.22 H Urine Appearance Urine Protein Urine Ketones Urine Nitrite Ur Leukocyte Esterase Urine WBC Urine Bacteria Hyaline Casts Urine Mucus 01/28/20 01/28/20 02:59 06:56 APTT Glucose POC Glucose (mg/dL) 126 H C-Reactive Protein Triglycerides 220 H Procalcitonin Urine Appearance Urine Protein Urine Ketones Urine Nitrite Ur Leukocyte Esterase Urine WBC Urine Bacteria Hyaline Casts Urine Mucus Assessment and Plan Assessment: 69-year-old right-handed female with history of medically intractable migraine, old right basal ganglia infarct, bilateral vertebral artery stenosis, DM for past 5-6 years, hyperlipidemia, sleep apnea, fibromyalgia, hypertension that has recurrent admissions to the hospital for medically intractable migraines that presented to the emergency department on 01/27/2020 for slurred speech since evening of 01/25/2020. Also same day has been having UTI symptoms. Her speech was slurred, garbled and had difficulty getting her words out. Denied any other neurological problems. She feels back to baseline. Her urine analysis was suggestive of UTI. Dysarthria: Possibly due to amnestic recall from UTI vs TIA or acute stroke. UTI Hx of medically intractabl migraine Old right basal ganglia stroke Bilateral vertebral artery stenosis Plan: CT of the head (01/27/20) which was reported as no acute intracranial hemorrhage or midline shift. There is mild diffuse age-related cerebral atrophy and moderate the chronic small vessel ischemic changes redemonstrated. No significant change from a prior CT. EKG was reported as sinus tachycardia with frequent premature ventricular complexes. Voltage criteria for left ventricular hypertrophy. ST and T-wave abnormality, consider inferior ischemia. The ventricular rate of 124. Lipid profile: The cholesterol level was 220, cholestrol 178, LDL 93, HDL 41. Will get MRI Brain to rule out stroke, carotid duplex. If MRI Brain is negative for stroke then likely she had slurred speech, difficulty getting her words out and was garbled from UTI. Because of history of the bilateral vertebral artery stenosis: Recommend continuing aspirin 81 mg and Plavix 75 mg. Also continue Lipitor 40mg daily. Regarding UTI will defer the management to the primary team and ID team. Thank you for the consult. Jason Mccord MD Neuro-Hospitalist Time with Patient: Greater than 30
[2020-01-28 14:59] VITALS: BMI 27.3
--- NOTE | 2020-01-28 15:30 | US ---
EXAMINATION TYPE: US carotid duplex BILAT DATE OF EXAM: 01/28/2020 COMPARISON: Carotid ultrasound December 10, 2018 CLINICAL HISTORY: stroke: slurred speech. EXAM MEASUREMENTS: RIGHT: Peak Systolic Velocity (PSV) cm/sec ----- Right CCA: 39.7 ----- Right ICA: 54.7 ----- Right ECA: 57.2 ICA/CCA ratio: 1.4 RIGHT: End Diastole cm/sec ----- Right CCA: 0.0 ----- Right ICA: 18.3 ----- Right ECA: 10.6 LEFT: Peak Systolic Velocity (PSV) cm/sec ----- Left CCA: 47.7 ----- Left ICA: 109.1 ----- Left ECA: 53.6 ICA/CCA ratio: 2.3 LEFT: End Diastole cm/sec ----- Left CCA: 9.6 ----- Left ICA: 24.1 ----- Left ECA: 6.4 VERTEBRALS (direction of flow): Right Vertebral: Antegrade Left Vertebral: Antegrade Rhythm: Normal Persistent moderate peripheral hyperechoic shadowing plaque bilateral carotid bulbs but velocity gael urements in the visualized portion of both internal carotid arteries remains within normal limits. IMPRESSION: Persistent moderate atherosclerotic changes bilaterally without hemodynamically signific ant stenosis clearly seen in either internal carotid artery. Criteria for Assigning % of Stenosis / Diameter reduction (Estimation based on the indirect measurements of the internal carotid artery velocities (ICA PSV). 1. Normal (no stenosis)=ICA PSV < 125 cm/s: ratio < 2.0: ICA EDV<40 cm/s. 2. Less than 50% stenosis=ICA PSV < 125 cm/s: ratio < 2.0: ICA EDV<40 cm/s. 3. 50 to 69% stenosis=ICA PSV of 125 to 230 cm/s: ration 2.0 ? 4.0: ICA EDV 40-100 cm/s. 4. Greater than 70% stenosis to near occlusion= ICA PSV > 230 cm/s: ratio > 4.0: ICA EDV > 100 cm/s. 5. Near occlusion= ICA PSV velocities may be low or undetectable: variable ratio and ICA EDV. 6. Total occlusion=unable to detect flow.
[2020-01-28 17:29] LABS: Glucose,Whole Blood 159 mg/dL (75-99)
--- NOTE | 2020-01-28 20:21 | MR ---
Brain MR without contrast HISTORY: Slurred speech and difficulty with words, dysarthria Multiplanar multisequence imaging through the brain Correlation CT brain 01/27/2020 There is no restricted diffusion. Cortical atrophy is again noted. Evidence of chronic sinusitis, pos sible invasive fungal sinusitis noted within the left maxillary sinus. There is no hemorrhage or hydr ocephalus. Corpus callosum, pituitary, cervical medullary junction, cerebellopontine angles are withi n normal limits. There are normal vascular flow voids. Periventricular hyperintensity present on inve rsion recovery T2-weighted sequences consistent with probable chronic small vessel ischemia. Encephal omalacia in the right basal ganglia consistent with lacunar infarct. Orbits are symmetric. IMPRESSION: No acute abnormality is evident. Age-related changes of atrophy and chronic small vessel ischemia. No evident subacute ischemia.
[2020-01-28] MEDS: METOPROLOL SUCCINATE (ER) 50 MG TAB.ER.24H PO SCH (20:30)
[2020-01-28] MEDS: METOCLOPRAMIDE 5 MG/ML 2 ML VIAL IVP PRN (21:26)
[2020-01-28 21:45] LABS: Glucose,Whole Blood 128 mg/dL (75-99)
[2020-01-28] MEDS: ATORVASTATIN 40 MG TAB PO SCH (21:47)
--- NOTE | 2020-01-28 22:10 | P.HPIM ---
History of Present Illness H&P Date: 01/28/20 Chief Complaint: dysarthria Melissa Pena is a 69 yo F with PMH of recurrent UTI growing ESBL E coli requiring ertapenem course completed last month, intractable migraine, vertebral artery stenosis, T2DM, adrenal insufficiency, HTN who presented to the ED complaining of weakness an dysarthria over the past few days. She states that starting about 3 days ago she noticed feeling more unsteady and weak and apparently had also been slurring her words. She denies any weakness or change in her balance. Pt does complain of some dark and foul smelling urine. On presentation she was tachycardic to 130s, SpO2 92%, WBC 10k, procalcitonin 0.22, urine with occasional bacteria. Urine culture is positive for E coli. Review of Systems All systems: negative Constitutional: Reports malaise, Reports weakness, Denies chills, Denies fever Eyes: denies blurred vision, denies pain Ears, nose, mouth and throat: Denies headache, Denies sore throat Cardiovascular: Denies chest pain, Denies shortness of breath Respiratory: Denies cough Gastrointestinal: Denies abdominal pain, Denies diarrhea, Denies nausea, Denies vomiting Genitourinary: Denies dysuria, Denies hematuria Musculoskeletal: Denies myalgias Integumentary: Denies pruritus, Denies rash Neurological: Reports as per HPI, Denies numbness, Denies weakness Psychiatric: Denies anxiety, Denies depression Endocrine: Denies fatigue, Denies weight change Past Medical History Past Medical History: Diabetes Mellitus, Deep Vein Thrombosis (DVT), Fibr omyalgia, Hyperlipidemia, Hypertension, Osteoarthritis (OA), Pneumonia, Renal Disease, Sleep Apnea/CPAP/BIPAP, Vascular Disorder Additional Past Medical History / Comment(s): Pt recently admitted to [facility] on 11/28/19 with recurerent UTI. 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, DVT R calf in 1976, cardiac murmur, occipital neuraligia, balance issues-has narrowing of vessels "in the back of my head", vertigo, varicosities, states rt shoulder torn rotator cuff History of Any Multi-Drug Resistant Organisms: ESBL, MRSA, VRE Date of last positivie culture/infection: 11/09/19 ESBL; 03/10/11 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 MDRO Source:: ESBL URINE; MRSA 4th rt TOE VRE URINE Past Surgical History: Appendectomy, Back Surgery, Bladder Surgery, Breast Surgery, Cholecystectomy, Heart Catheterization, Hysterectomy, Orthopedic Surgery, Tonsillectomy Additional Past Surgical History / Comment(s): Lumbar fusions, bladder suspension, occipital nerve blocks, 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, R wrist/elbow nerve repair, bone removed R shoulder, 4th toe R foot partial amputation, bilateral feet/bunionectomies, R knee arthroscopies, R orbit decompression with ethmoidectomy and eyelid lift, EGD, colonoscopies, cystocopies, lithotripsy/stents, bilateral breast reduction, bilateral cataract removals, parathyroid surgery - April 2019, pain clinic procedures Past Anesthesia/Blood Transfusion Reactions: No Reported Reaction Additional Past Anesthesia/Blood Transfusion Reaction / Comment(s): never recie juan carlos blood Past Psychological History: No Psychological Hx Reported Additional Psychological History / Comment(s): Pt resides with her spouse. She uses a walker. She normally drives. She has a nebulizer, cpap, bsc, shower chair, bp machine, dexcom monitor system for her bs. Smoking Status: Never smoker Past Alcohol Use History: None Reported Additional Past Alcohol Use History / Comment(s): no alcohol Past Drug Use History: None Reported - Past Family History Father Family Medical History: Coronary Artery Disease (CAD), CVA/TIA, Diabetes Mellitus, Myocardial Infarction ([place]), Pneumonia Additional Family Medical History / Comment(s): Father at the age of 78yrs from [place] and pneumonia. Mother Family Medical History: Cancer Additional Family Medical History / Comment(s): Mother had uterine cancer. She recently at the age of 96yrs old from [employer]. Medications and Allergies Home Medications Medication Instructions Recorded Confirmed Type Cholecalciferol [Vitamin D3 (25 3,000 unit PO DAILY@0700 12/01/15 01/27/20 History Mcg = 1000 Iu)] Metoprolol Succinate (ER) [Toprol 50 mg PO HS 07/06/17 01/27/20 History XL] Meclizine [Antivert] 25 mg PO QID PRN 11/26/17 01/27/20 History Hydrocortisone [Cortef] 15 mg PO AC-BRKFST 05/18/18 01/27/20 History Hydrocortisone [Cortef] 5 mg PO HS 06/26/18 01/27/20 History Aspirin 81 mg PO DAILY #0 07/02/18 01/27/20 Rx Glucagon Emergency Kit 1 mg IM ONCE PRN 08/12/18 01/27/20 History Cranberry 300mg 300 mg PO BID 10/08/18 01/27/20 History Ferrous Sulfate [Iron (65 MG 325 mg PO DAILY 10/08/18 01/27/20 History Elemental)] Folic Acid 0.4 mg PO DAILY 10/08/18 01/27/20 History L.acidoph,Paracasei, B.lactis 2 cap PO BID 10/08/18 01/27/20 History [Probiotic] Melatonin 5 mg PO HS PRN 10/08/18 01/27/20 History Multivitamins, Thera Liquid 30 ml PO DAILY 10/08/18 01/27/20 History [Theragran Liquid (formulary)] Potassium 99 mg PO DAILY 10/08/18 01/27/20 History Thiamine [Vitamin B-1] 100 mg PO DAILY 10/08/18 01/27/20 History Vitamin B-Complex Drops 1 ml PO BID 10/08/18 01/27/20 History Atorvastatin [Lipitor] 40 mg PO HS #30 tab 11/16/18 01/27/20 Rx Pantoprazole [Protonix] 40 mg PO BID 01/29/19 01/27/20 History Hydrocortisone [Cortef] 10 mg PO AC-LUNCH 08/30/19 01/27/20 History Venlafaxine HCl [Effexor XR] 75 mg PO DAILY 11/08/19 01/27/20 History Acetaminophen Tab [Tylenol] 1,000 mg PO Q6HR PRN 12/06/19 01/27/20 History Butalb/APAP/Caff 50-325-40Mg 1 tab PO QID PRN 12/06/19 01/27/20 History [Fioricet 50-325-40] Clopidogrel [Plavix] 75 mg PO DAILY 12/06/19 01/27/20 History Magnesium Oxide [Mag-Ox] 400 mg PO DAILY 12/06/19 01/27/20 History Ondansetron HCl [Zofran] 4 mg PO Q6H PRN 12/06/19 01/27/20 History Prochlorperazine [Compazine] 10 mg PO BID 12/06/19 01/27/20 History Promethazine 6.25MG/5Ml [Phenergan 6.25 mg PO Q6H PRN 12/06/19 01/27/20 History Syrup] Insulin Aspart [NovoLOG Flexpen] See Protocol SQ AC-TID 12/30/19 01/27/20 History Spironolactone [Aldactone] 50 mg PO DAILY 12/30/19 01/27/20 History HYDROcodone/APAP 10-325MG [[place] 1 tab PO Q8H PRN #0 01/06/20 01/27/20 Rx 10-325] Insulin Glargine,Hum.rec.anlog 20 unit SQ HS@2200 #0 01/06/20 01/27/20 Rx [Lantus Solostar] lisinopriL [Zestril] 30 mg PO W/BRKFST #45 tab 01/06/20 01/27/20 Rx Allergies Allergy/AdvReac Type Severity Reaction Status Date / Time butorphanol tartrate Allergy BLISTERS Verified 01/27/20 16:26 [From Stadol] IN MOUTH ceftriaxone [From Rocephin] Allergy Unknown Verified 01/27/20 16:26 clarithromycin [From Biaxin] Allergy Rash/Hives Verified 01/27/20 16:26 codeine Allergy Rash/Hives Verified 01/27/20 16:26 ergotamine tartrate Allergy Unknown Verified 01/27/20 16:26 [From Cafergot] erythromycin base Allergy RASH, GI Verified 01/27/20 16:26 [From E-Mycin] SYMPTOMS ketorolac tromethamine Allergy Rash/Hives Verified 01/27/20 16:26 [From Toradol] liraglutide [From Victoza] Allergy Rash/Hives Verified 01/27/20 16:26 morphine Allergy Rash/Hives Verified 01/27/20 16:26 Penicillins Allergy Rash/Hives Verified 01/27/20 16:26 pentazocine lactate Allergy SEVERE Verified 01/27/20 16:26 [From Talwin] BLISTERS IN MOUTH pregabalin [From Lyrica] Allergy Rash/Hives Verified 01/27/20 16:26 propoxyphene HCl Allergy Rash/Hives Verified 01/27/20 16:26 [From Darvon] Sulfa (Sulfonamide Allergy Rash/Hives Verified 01/27/20 16:26 Antibiotics) tramadol Allergy Unknown Verified 01/27/20 16:26 monosodium glutamate [MSG] AdvReac Nausea & Verified 01/27/20 16:26 Vomiting nalbuphine HCl [From Nubain] AdvReac Nausea & Verified 01/27/20 16:26 Vomiting Physical Exam Vitals: Vital Signs Temp Pulse Pulse Resp BP BP Pulse Ox 01/28/20 15:00 97.8 F 65 16 166/89 92 L 01/28/20 14:50 81 16 01/28/20 09:00 81 16 01/28/20 08:10 98.0 F 81 16 139/79 97 01/28/20 04:00 98.2 F 75 18 130/64 97 01/27/20 23:33 100.4 F H 114 H 18 148/73 97 Intake and Output 01/28/20 01/28/20 01/28/20 06:59 14:59 22:59 Intake Total 800 Balance 800 Intake: Intake, IV Titration 800 Amount Sodium Chloride 0.9% 1, 800 000 ml @ 100 mls/hr IV . Q10H [facility] Rx#:[id number] Other: # Voids 1 1 Weight 63.503 kg General: well nourished, well developed, NAD. Vitals reviewed Eyes: PERRL, EOMI, conjunctiva normal HENT: normocephalic, mucus membranes moist Neck: supple, no JVD Lungs: normal respiratory effort, no wheezes or rales CV: Regular rate and rhythm, no murmur. Peripheral pulses 2+ Abdomen: soft, nondistended, no organomegaly. Mild tenderness Lymph: no cervical or axillary LAD Skin: warm and dry. Neuro: A&Ox3, normal mood and affect Results CBC & Chem 7: 01/27/20 14:26 01/27/20 14:26 Labs: Abnormal Lab Results - Last 24 Hours (Table) 01/27/20 01/27/2020 Range/Units 14:26 14:26 00:26 POC Glucose (mg/dL) 128 H (75-99) mg/dL C-Reactive Protein 56.6 H (<10.0) mg/L Triglycerides (<150) mg/dL Procalcitonin 0.22 H (0.02-0.09) ng/mL 01/28/20 01/28/20 01/28/20 Range/Units 02:59 06:56 11:37 POC Glucose (mg/dL) 126 H 138 H (75-99) mg/dL C-Reactive Protein (<10.0) mg/L Triglycerides 220 H (<150) mg/dL Procalcitonin (0.02-0.09) ng/mL 01/28/20 01/28/20 Range/Units 17:26 21:43 POC Glucose (mg/dL) 159 H 128 H (75-99) mg/dL C-Reactive Protein (<10.0) mg/L Triglycerides (<150) mg/dL Procalcitonin (0.02-0.09) ng/mL Microbiology - Last 24 Hours (Table) 01/27/20 14:26 Urine Culture - Preliminary Urine,Voided Gram Neg Bacilli Thrombosis Risk Factor Assmnt - Choose All That Apply Each Risk Factor Represents 2 Points: Age 61-74 years Each Risk Factor Represents 3 Points: History of DVT/PE Thrombosis Risk Factor Assessment Total Risk Factor Score: 5 Thrombosis Risk Factor Assessment Level: High Risk Assessment and Plan (1) Intractable migraine with aura with status migrainosus Current Visit: No Status: Acute Code(s): G43.111 - MIGRAINE WITH AURA, INTRACTABLE, WITH STATUS MIGRAINOSUS SNOMED Code(s): 000182520 (2) UTI due to extended-spectrum beta lactamase (ESBL) producing Escherichia coli Current Visit: No Status: Acute Code(s): N39.0 - URINARY TRACT INFECTION, SITE NOT SPECIFIED; B96.29 - OTH ESCHERICHIA COLI THE CAUSE OF DISEASES CLASSD ELSWHR; Z16.12 - EXTENDED SPECTRUM BETA LACTAMASE (ESBL) RESISTANCE SNOMED Code(s): 567354404 (3) Adrenal insufficiency Current Visit: No Status: Chronic Code(s): E27.40 - UNSPECIFIED ADRENOCORTICAL INSUFFICIENCY SNOMED Code(s): 975240709 (4) DM type 2 (diabetes mellitus, type 2) Current Visit: No Status: Chronic Code(s): E11.9 - TYPE 2 DIABETES MELLITUS WITHOUT COMPLICATIONS SNOMED Code(s): 24085996 Plan: 1. Sepsis secondary to UTI. With tachycardia, fever and urine culture positive. ID consult and start invanz for suspected ESBL E coli. Follow sensitivity 2. Dysarthria, history of migraine. Neurology consult for further evaluation. Continue home norco. Dilaudid for breakthrough pain 3. Adrenal insufficiency. Continue cortef 4. T2DM 5. HTN
--- NOTE | 2020-01-28 23:46 | P.CONS ---
History of Present Illness - Reason for Consult Consult date: 01/28/20 Urinary tract infection Requesting physician: Andrew Gonsales - Chief Complaint Weakness cloudy urine x few days - History of Present Illness Patient is 69-year-old female with a past medical history significant for recurrent urinary tract infection this patient has previously grown ESBL E. coli in her urine And has been treated with multiple courses of ertapenem patient was brought into the ER yesterday with generalized weakness and dizziness and slurred speech patient also complaining of urine getting darker and foul-smelling suprapubic discomfort, patient on presentation to the hospital did have a low-grade fever 100.4 the patient white count is normal patient did have a positive UA she has been admitted hospital for workup for possible CVA with concern for urinary tract infection infectious disease was consulted for further management of antibiotic Therapy, patient denies significant vomiting or diarrhea however the nurses tell reported an episode of loose stools Review of Systems Positive point has been mentioned in the HPI rest of the systems are negative Past Medical History Past Medical History: Diabetes Mellitus, Deep Vein Thrombosis (DVT), Fibromyalgia, Hyperlipidemia, Hypertension, Osteoarthritis (OA), Pneumonia, Renal Disease, Sleep Apnea/CPAP/BIPAP, Vascular Disorder Additional Past Medical History / Comment(s): Pt recently admitted to [facility] on 11/28/19 with recurerent UTI. 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, DVT R calf in 1976, cardiac murmur, occipital neuraligia, balance issues-has narrowing of vessels "in the back of my head", vertigo, varicosities, states rt shoulder torn rotator cuff History of Any Multi-Drug Resistant Organisms: ESBL, MRSA, VRE Year Discovered:: 11/09/19 ESBL; 03/10/11 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 MDRO Source:: ESBL URINE; MRSA 4th rt TOE VRE URINE Past Surgical History: Appendectomy, Back Surgery, Bladder Surgery, Breast Surgery, Cholecystectomy, Heart Catheterization, Hysterectomy, Orthopedic Surge ry, Tonsillectomy Additional Past Surgical History / Comment(s): Lumbar fusions, bladder suspension, occipital nerve blocks, 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, R wrist/elbow nerve repair, bone removed R shoulder, 4th toe R foot partial amputation, bilateral feet/bunionectomies, R knee arthroscopies, R orbit decompression with ethmoidectomy and eyelid lift, EGD, colonoscopies, cystocopies, lithotripsy/stents, bilateral breast reduction, bilateral cataract removals, parathyroid surgery - April 2019, pain clinic procedures Past Anesthesia/Blood Transfusion Reactions: No Reported Reaction Additional Past Anesthesia/Blood Transfusion Reaction / Comm: never recieved blood Past Psychological History: No Psychological Hx Reported Additional Psychological History / Comment(s): Pt resides with her spouse. She uses a walker. She normally drives. She has a nebulizer, cpap, bsc, shower chair, bp machine, dexcom monitor system for her bs. Smoking Status: Never smoker Past Alcohol Use History: None Reported Additional Past Alcohol Use History / Comment(s): no alcohol Past Drug Use History: None Reported - Past Family History Father Family Medical History: Coronary Artery Disease (CAD), CVA/TIA, Diabetes Me llitus, Myocardial Infarction ([place]), Pneumonia Additional Family Medical History / Comment(s): Father at the age of 78yrs from [place] and pneumonia. Mother Family Medical History: Cancer Additional Family Medical History / Comment(s): Mother had uterine cancer. She recently at the age of 96yrs old from [place]. Medications and Allergies Home Medications Medication Instructions Recorded Confirmed Type Cholecalciferol [Vitamin D3 (25 3,000 unit PO DAILY@0700 12/01/14 01/27/20 History Mcg = 1000 Iu)] Metoprolol Succinate (ER) [Toprol 50 mg PO HS 07/06/17 01/27/20 History XL] Meclizine [Antivert] 25 mg PO QID PRN 11/26/17 01/27/20 History Hydrocortisone [Cortef] 15 mg PO AC-BRKFST 05/18/18 01/27/20 History Hydrocortisone [Cortef] 5 mg PO HS 06/26/18 01/27/20 History Aspirin 81 mg PO DAILY #0 07/02/18 01/27/20 Rx Glucagon Emergency Kit 1 mg IM ONCE PRN 08/12/18 01/27/20 History Cranberry 300mg 300 mg PO BID 10/08/18 01/27/20 History Ferrous Sulfate [Iron (65 MG 325 mg PO DAILY 10/08/18 01/27/20 History Elemental)] Folic Acid 0.4 mg PO DAILY 10/08/18 01/27/20 History L.acidoph,Paracasei, B.lactis 2 cap PO BID 10/08/18 01/27/20 History [Probiotic] Melatonin 5 mg PO HS PRN 10/08/18 01/27/20 History Multivitamins, Thera Liquid 30 ml PO DAILY 10/08/18 01/27/20 History [Theragran Liquid (formulary)] Potassium 99 mg PO DAILY 10/08/18 01/27/20 History Thiamine [Vitamin B-1] 100 mg PO DAILY 10/08/18 01/27/20 History Vitamin B-Complex Drops 1 ml PO BID 10/08/18 01/27/20 History Atorvastatin [Lipitor] 40 mg PO HS #30 tab 11/16/18 01/27/20 Rx Pantoprazole [Protonix] 40 mg PO BID 01/29/19 01/27/20 History Hydrocortisone [Cortef] 10 mg PO AC-LUNCH 08/30/19 01/27/20 History Venlafaxine HCl [Effexor XR] 75 mg PO DAILY 11/08/19 01/27/20 History Acetaminophen Tab [Tylenol] 1,000 mg PO Q6HR PRN 12/06/19 01/27/20 History Butalb/APAP/Caff 50-325-40Mg 1 tab PO QID PRN 12/06/19 01/27/20 History [Fioricet 50-325-40] Clopidogrel [Plavix] 75 mg PO DAILY 12/06/19 01/27/20 History Magnesium Oxide [Mag-Ox] 400 mg PO DAILY 12/06/19 01/27/20 History Ondansetron HCl [Zofran] 4 mg PO Q6H PRN 12/06/19 01/27/20 History Prochlorperazine [Compazine] 10 mg PO BID 12/06/19 01/27/20 History Promethazine 6.25MG/5Ml [Phenergan 6.25 mg PO Q6H PRN 12/06/19 01/27/20 History Syrup] Insulin Aspart [NovoLOG Flexpen] See Protocol SQ AC-TID 12/30/19 01/27/20 History Spironolactone [Aldactone] 50 mg PO DAILY 12/30/19 01/27/20 History HYDROcodone/APAP 10-325MG [[place] 1 tab PO Q8H PRN #0 01/06/20 01/27/20 Rx 10-325] Insulin Glargine,Hum.rec.anlog 20 unit SQ HS@2200 #0 01/06/20 01/27/20 Rx [Lantus Solostar] lisinopriL [Zestril] 30 mg PO W/BRKFST #45 tab 01/06/20 01/27/20 Rx Allergies Allergy/AdvReac Type Severity Reaction Status Date / Time butorphanol tartrate Allergy BLISTERS Verified 01/27/20 16:26 [From Stadol] IN MOUTH ceftriaxone [From Rocephin] Allergy Unknown Verified 01/27/20 16:26 clarithromycin [From Biaxin] Allergy Rash/Hives Verified 01/27/20 16:26 codeine Allergy Rash/Hives Verified 01/27/20 16:26 ergotamine tartrate Allergy Unknown Verified 01/27/20 16:26 [From Cafergot] erythromycin base Allergy RASH, GI Verified 01/27/20 16:26 [From E-Mycin] SYMPTOMS ketorolac tromethamine Allergy Rash/Hives Verified 01/27/20 16:26 [From Toradol] liraglutide [From Victoza] Allergy Rash/Hives Verified 01/27/20 16:26 morphine Allergy Rash/Hives Verified 01/27/20 16:26 Penicillins Allergy Rash/Hives Verified 01/27/20 16:26 pentazocine lactate Allergy SEVERE Verified 01/27/20 16:26 [From Talwin] BLISTERS IN MOUTH pregabalin [From Lyrica] Allergy Rash/Hives Verified 01/27/20 16:26 propoxyphene HCl Allergy Rash/Hives Verified 01/27/20 16:26 [From Darvon] Sulfa (Sulfonamide Allergy Rash/Hives Verified 01/27/20 16:26 Antibiotics) tramadol Allergy Unknown Verified 01/27/20 16:26 monosodium glutamate [MSG] AdvReac Nausea & Verified 01/27/20 16:26 Vomiting nalbuphine HCl [From Nubain] AdvReac Nausea & Verified 01/27/20 16:26 Vomiting Physical Exam Vitals: Vital Signs Temp Pulse Pulse Resp BP BP Pulse Ox 01/28/20 09:00 81 16 01/28/20 08:10 98.0 F 81 16 139/79 97 01/28/20 04:00 98.2 F 75 18 130/64 97 01/27/20 23:33 100.4 F H 114 H 18 148/73 97 01/27/20 20:43 113 H 14 01/27/20 20:24 99 F 113 H 14 96 01/27/20 20:08 98.3 F 111 H 14 148/78 98 01/27/20 18:30 99.0 F 112 H 19 130/77 94 L 01/27/20 18:00 116 H 17 129/90 94 L 01/27/20 17:30 123 H 20 159/84 96 01/27/20 17:00 111 H 20 144/81 98 01/27/20 16:00 115 H 18 154/97 97 01/27/20 15:30 115 H 17 146/67 94 L 01/27/20 14:30 124 H 24 147/86 92 L 01/27/20 14:07 98.2 F 132 H 22 121/72 93 L Intake and Output 01/27/20 01/28/20 01/28/20 22:59 06:59 14:59 Intake Total 800 Balance 800 Intake: Intake, IV Titration 800 Amount Sodium Chloride 0.9% 1, 800 000 ml @ 100 mls/hr IV . Q10H [facility] Rx#:[id number] Other: # Voids 1 1 1 Weight 63.503 kg GENERAL DESCRIPTION: An elderly female lying in bed, no distress. No tachypnea or accessory muscle of respiration use. HEENT: Shows Pallor , no scleral icterus. Oral mucous membrane is dry. No pharyngeal erythema or thrush NECK: Trachea central, no thyromegaly. LUNGS: Unlabored breathing. Clear to auscultation anteriorly. No wheeze or crackle. HEART: S1, S2, regular rate and rhythm. No loud murmur ABDOMEN: Soft, no tenderness , guarding or rigidity, no organomegaly EXTREMITIES: No edema of feet. SKIN: No rash, no masses palpable. NEUROLOGICAL: The patient is awake, alert, oriented x3, mood and affect normal. Results CBC & Chem 7: 01/27/20 14:26 01/27/20 14:26 Labs: Abnormal Lab Results - Last 24 Hours (Table) 01/27/20 01/27/20 01/27/20 Range/Units 14:26 14:26 14:26 APTT 19.7 L (22.0-30.0) sec Glucose 127 H (74-99) mg/dL POC Glucose (mg/dL) (75-99) mg/dL C-Reactive Protein (<10.0) mg/L Triglycerides (<150) mg/dL Procalcitonin (0.02-0.09) ng/mL Urine Appearance Cloudy H (Clear) Urine Protein Trace H (Negative) Urine Ketones 1+ H (Negative) Urine Nitrite Positive H (Negative) Ur Leukocyte Esterase Moderate H (Negative) Urine WBC 84 H (0-5) /hpf Urine Bacteria Occasional H (None) /hpf Hyaline Casts 5 H (0-2) /lpf Urine Mucus Occasional H (None) /hpf 01/27/20 01/27/20 01/28/20 Range/Units 14:26 14:26 00:26 APTT (22.0-30.0) sec Glucose (74-99) mg/dL POC Glucose (mg/dL) 128 H (75-99) mg/dL C-Reactive Protein 56.6 H (<10.0) mg/L Triglycerides (<150) mg/dL Procalcitonin 0.22 H (0.02-0.09) ng/mL Urine Appearance (Clear) Urine Protein (Negative) Urine Ketones (Negative) Urine Nitrite (Negative) Ur Leukocyte Esterase (Negative) Urine WBC (0-5) /hpf Urine Bacteria (None) /hpf Hyaline Casts (0-2) /lpf Urine Mucus (None) /hpf 01/28/20 01/28/20 01/28/20 Range/Units 02:59 06:56 11:37 APTT (22.0-30.0) sec Glucose (74-99) mg/dL POC Glucose (mg/dL) 126 H 138 H (75-99) mg/dL C-Reactive Protein (<10.0) mg/L Triglycerides 220 H (<150) mg/dL Procalcitonin (0.02-0.09) ng/mL Urine Appearance (Clear) Urine Protein (Negative) Urine Ketones (Negative) Urine Nitrite (Negative) Ur Leukocyte Esterase (Negative) Urine WBC (0-5) /hpf Urine Bacteria (None) /hpf Hyaline Casts (0-2) /lpf Urine Mucus (None) /hpf Microbiology - Last 24 Hours (Table) 01/27/20 14:26 Urine Culture - Preliminary Urine,Voided Assessment and Plan Assessment: 1- patient presented to hospital with generalized weakness did have a low-grade fever and significant urinary symptoms are likely concerning for a symptomatic urinary tract infection in this patient has previously grown ESBL E. coli in the urine could be the same pathogen 2-Patient with multiple antibiotic ALLERGIES that would limit the number of antibiotic safe to use (1) Allergy to multiple antibiotics Current Visit: Yes Status: Acute Code(s): Z88.1 - ALLERGY STATUS TO OTHER ANTIBIOTIC AGENTS STATUS SNOMED Code(s): 714351558 (2) UTI (urinary tract infection) Current Visit: No Status: Acute Code(s): N39.0 - URINARY TRACT INFECTION, SITE NOT SPECIFIED SNOMED Code(s): 07458048 Plan: 1-we will start the patient on Invanz 1 g daily 2-gentle IV fluid We will follow on clinical condition and cultures to further adjust medication if needed Thank you for this consultation will follow this patient with you Time with Patient: Greater than 30
[2020-01-28] MEDS: ACETAMINOPHEN TAB 325 MG TAB PO SCH (23:54)
[2020-01-29] MEDS: ACETAMINOPHEN TAB 325 MG TAB PO SCH ×4 (01:09→19:20)
[2020-01-29] MEDS: HYDROmorphone 0.5 MG/0.5 ML SYRINGE IVP PRN ×4 (03:52→23:36)
[2020-01-29] MEDS: METOCLOPRAMIDE 5 MG/ML 2 ML VIAL IVP PRN ×4 (06:44→21:09)
[2020-01-29] MEDS: HYDROCORTISONE 10 MG TAB PO SCH (06:44)
[2020-01-29] MEDS: lisinopriL 20 MG TAB PO SCH (06:45)
[2020-01-29 06:50] LABS: Glucose,Whole Blood 145 mg/dL (75-99)
[2020-01-29] MEDS: CLOPIDOGREL 75 MG TAB PO SCH (09:01)
[2020-01-29] MEDS: SPIRONOLACTONE 25 MG TAB PO SCH (09:01)
[2020-01-29] MEDS: ASPIRIN 81 MG PO SCH (09:01)
[2020-01-29] MEDS: VENLAFAXINE HCL ER 75 MG CAP PO SCH (09:01)
[2020-01-29] MEDS: MAGNESIUM OXIDE 400 MG TAB PO SCH (09:01)
[2020-01-29] MEDS: PANTOPRAZOLE 40 MG TABLET PO SCH ×2 (09:01→20:04)
[2020-01-29] MEDS: HYDROcodone/APAP 10-325MG 1 EACH TAB PO PRN ×2 (09:15→21:35)
[2020-01-29] MEDS: SODIUM CHLORIDE 0.9% 1,000 ML IV SCH ×2 (09:18→19:10)
[2020-01-29 11:39] LABS: Glucose,Whole Blood 180 mg/dL (75-99)
[2020-01-29] MEDS: HYDROCORTISONE SUCCINATE 100 MG/2 ML VIAL IV SCH ×3 (12:08→23:37)
--- NOTE | 2020-01-29 15:53 | P.PN ---
Subjective Progress Note Date: 01/29/20 Principal diagnosis: Dysarthria and Urinary tract infection She was seen at bedside and she states that she's doing well. She had no further episode of dysarthria. No further episodes of slurring of her speech or difficulty getting her words out. She still continues to get an IV antibiotic for her urinary tract infection. Objective - Vital Signs Vital signs: Vital Signs Temp 98.0 F 01/29/20 09:00 Pulse 80 01/29/20 09:00 Resp 18 01/29/20 09:00 BP 168/91 01/29/20 09:00 Pulse Ox 95 01/29/20 09:00 Intake & Output 01/28/20 01/29/20 01/29/20 18:59 06:59 18:59 Intake Total 900 Balance 900 Weight 63.503 kg Intake: Intake, IV Titration 450 Amount Ertapenem 1 gm In Sodium 450 Chloride 0.9% 50 ml @ 100 mls/hr IVPB DAILY@1400 [facility]ARA Rx#:[id number] Oral 450 Other: Voiding Method Bedside Commode Bedside Commode Diaper Diaper Incontinent Incontinent # Voids 1 1 3 # Bowel Movements 1 2 - Exam GENERAL: The patient is lying in bed and is not in acute distress. CHEST: The heart rate is regular rate rhythm. No murmurs to auscultation. No carotid bruit bilaterally. LUNG: Clear to auscultation bilaterally no wheezing noted throughout. Not labored breathing. ABDOMEN/GI: Bowel sounds present in all 4 quadrants. No tenderness to palpation throughout. NEUROLOGICAL: Higher mental function: The patient is awake, alert, oriented to self, place and time. Patient is following commands. No aphasia and no neglect. Cranial nerves: The pupils are round, equal and reactive to light and accommodation. Visual hinds are full to confrontation throughout. Extraocular movement is intact no nystagmus is noted. Facial sensation is normal to touch throughout. The facial strength is normal throughout. Hearing is normal bilaterally to hand rub. Tongue is midline and moved [id number] without any difficulty. No dysarthria is noted. Shoulder shrug is normal bilaterally. Motor: The strength is 5 over 5 throughout. Normal tone and bulk. Cerebellum: Normal finger to nose heel to chin bilaterally. Sensation: Sensation is normal to touch throughout. Reflexes (right/left): 2+ in upper extremities and 1+ in lower extremities. Plantars are positioned up bilaterally without stimulation. - Labs CBC & Chem 7: 01/27/20 14:26 01/27/20 14:26 Labs: Abnormal Lab Results - Last 24 Hours (Table) 01/28/20 01/28/20 01/29/20 Range/Units 17:26 21:43 06:49 POC Glucose (mg/dL) 159 H 128 H 145 H (75-99) mg/dL 01/29/20 Range/Units 11:37 POC Glucose (mg/dL) 180 H (75-99) mg/dL Microbiology - Last 24 Hours (Table) 01/28/20 02:59 Blood Culture - Preliminary Blood No Growth after 24 hours 01/27/20 14:26 Urine Culture - Preliminary Urine,Voided Gram Neg Bacilli Assessment and Plan Assessment: 69-year-old right-handed female with history of medically intractable migraine, old right basal ganglia infarct, bilateral vertebral artery stenosis, DM for past 5-6 years, hyperlipidemia, sleep apnea, fibromyalgia, hypertension that has recurrent admissions to the hospital for medically intractable migraines that presented to the emergency department on 01/27/2020 for slurred speech since evening of 01/25/2020. Also same day has been having UTI symptoms. Her speech was slurred, garbled and had difficulty getting her words out. Denied any other neurological problems. She feels back to baseline. Her urine analysis was suggestive of UTI. Dysarthria: Possibly due to amnestic recall from UTI vs TIA. Patient does not have acute ischemic stroke. UTI Hx of medically intractabl migraine Old right basal ganglia stroke Bilateral vertebral artery stenosis Plan: CT of the head (01/27/20) which was reported as no acute intracranial hemorrhage or midline shift. There is mild diffuse age-related cerebral atrophy and moderate the chronic small vessel ischemic changes redemonstrated. No significant change from a prior CT. EKG was reported as sinus tachycardia with frequent premature ventricular complexes. Voltage criteria for left ventricular hypertrophy. ST and T-wave abnormality, consider inferior ischemia. The ventricular rate of 124. Lipid profile: The cholesterol level was 220, cholestrol 178, LDL 93, HDL 41. MRI Brain: Was reported as no acute abnormality is evident. Age-related changes of atrophy and chronic small vessel ischemia. No evidence of subacute ischemia. Bilateral carotid duplex: Shows persistent moderate arthrosclerotic changes bilaterally without hemodynamic significant stenosis currently seen in either internal carotid arteries. Because of history of the bilateral vertebral artery stenosis: Recommend continuing aspirin 81 mg and Plavix 75 mg. Also continue Lipitor 40mg daily. Regarding UTI will defer the management to the primary team and ID team. Patient was notified that she is to follow-up with her neurologist as an outpatient she follows up with Dr. Barry. Patient is clear from neurology perspective. Please reconsult if needed. Jason Mccord MD Neuro-Hospitalist Time with Patient: Greater than 30
[2020-01-29] MEDS ORDERED: HYDROCORTISONE SUCCINATE 100 MG/2 ML VIAL IV SCH (16:00)
[2020-01-29] MEDS: CHOLESTYRAMINE (WITH SUGAR) 4 GM PACKET PO SCH ×2 (16:07→20:04)
[2020-01-29] MEDS: ERTAPENEM 1 GM in SODIUM CHLORIDE 0.9% 50 ML IVPB SCH (16:07)
[2020-01-29 16:49] LABS: Glucose,Whole Blood 179 mg/dL (75-99)
[2020-01-29 20:04] LABS: Glucose,Whole Blood 182 mg/dL (75-99)
[2020-01-29] MEDS: ATORVASTATIN 40 MG TAB PO SCH (20:04)
[2020-01-29] MEDS: METOPROLOL SUCCINATE (ER) 50 MG TAB.ER.24H PO SCH (20:04)
[2020-01-29] MEDS: ACETAMINOPHEN TAB 325 MG TAB PO PRN (20:05)
--- NOTE | 2020-01-29 20:44 | PN ---
PROGRESS NOTE DATE OF SERVICE: 01/29/2020 REASON FOR FOLLOWUP: 1. Urinary tract infection. 2. Diarrhea. INTERVAL HISTORY: Patient is currently afebrile. Patient is breathing comfortably. Has been complaining of diarrhea with about 4 loose stools today. Still complaining of burning of urine. No chest pain, shortness of breath or cough. PHYSICAL EXAMINATION: Blood pressure 159/92 with a pulse of 100, temperature 97.3. She is 99% on room air. General description: The patient is an elderly female lying in bed in no distress. Respiratory system: Unlabored breathing. Clear to auscultation anteriorly. Heart S1, S2. Regular rate and rhythm. ABDOMEN: Soft, no tenderness. LABS: Urine showing gram-negative blood culture negative. Stool for C difficile was negative. DIAGNOSTIC IMPRESSION AND PLAN: 1. Patient with recurrent urinary tract infection in this patient urine showing a Gram- negative. Patient has chronic ESBL E coli. Covered with Invanz to continue while waiting for the culture to finalize. 2. Diarrhea. Stool for C difficile is negative. Will add Questran for symptomatic relief. Monitor clinical course closely. MMODL / IJN: [id number] /
--- NOTE | 2020-01-29 22:21 | P.PN ---
Subjective Progress Note Date: 01/29/20 She continues to feel malaised although denies any further dysarthria. She is on invanz for her UTI, waiting for culture to finalize. Pt continues to feel weak, she did ambulate with PT today who is recommending [facility] vs home health. Objective - Vital Signs Vital signs: Vital Signs Temp 97.6 F 01/29/20 15:00 Pulse 100 01/29/20 15:00 Resp 18 01/29/20 15:00 BP 159/92 01/29/20 15:00 Pulse Ox 99 01/29/20 15:00 Intake & Output 01/29/20 01/29/20 01/30/20 06:59 18:59 06:59 Intake Total 900 Balance 900 Intake: Intake, IV Titration 450 Amount Ertapenem 1 gm In Sodium 450 Chloride 0.9% 50 ml @ 100 mls/hr IVPB DAILY@1400 [facility] Rx#:[id number] Oral 450 Other: Voiding Method Bedside Commode Bedside Commode Diaper Diaper Incontinent Incontinent # Voids 1 3 # Bowel Movements 1 2 - Exam General: well nourished, well developed, NAD. Vitals reviewed Lungs: normal respiratory effort, no wheezes or rales CV: Regular rate and rhythm, no murmur. Peripheral pulses 2+ Abdomen: soft, nondistended, no organomegaly Skin: warm and dry. - Labs CBC & Chem 7: 01/27/20 14:26 01/27/20 14:26 Labs: Abnormal Lab Results - Last 24 Hours (Table) 01/29/20 01/29/20 01/29/20 Range/Units 06:49 11:37 16:48 POC Glucose (mg/dL) 145 H 180 H 179 H (75-99) mg/dL 01/29/20 Range/Units 20:02 POC Glucose (mg/dL) 182 H (75-99) mg/dL Microbiology - Last 24 Hours (Table) 01/27/20 14:26 Urine Culture - Final Urine,Voided Citrobacter braakii 01/28/20 02:59 Blood Culture - Preliminary Blood No Growth after 24 hours Assessment and Plan (1) Intractable migraine with aura with status migrainosus Current Visit: No Status: Acute Code(s): G43.111 - MIGRAINE WITH AURA, I NTRACTABLE, WITH STATUS MIGRAINOSUS SNOMED Code(s): 350248857 (2) UTI due to extended-spectrum beta lactamase (ESBL) producing Escherichia coli Current Visit: No Status: Acute Code(s): N39.0 - URINARY TRACT INFECTION, SITE NOT SPECIFIED; B96.29 - OTH ESCHERICHIA COLI THE CAUSE OF DISEASES CLASSD ELSWHR; Z16.12 - EXTENDED SPECTRUM BETA LACTAMASE (ESBL) RESISTANCE SNOMED Code(s): 542837102 (3) Adrenal insufficiency Current Visit: No Status: Chronic Code(s): E27.40 - UNSPECIFIED ADRENOCORTICAL INSUFFICIENCY SNOMED Code(s): 081353567 (4) DM type 2 (diabetes mellitus, type 2) Current Visit: No Status: Chronic Code(s): E11.9 - TYPE 2 DIABETES MELLITUS WITHOUT COMPLICATIONS SNOMED Code(s): 30346538 Plan: Continue invanz per ID and await final cultures. Will change po cortef to solucortef stress dose. Neurology signed off, continue with ASA, plavix, lipitor.
[2020-01-30] MEDS: ACETAMINOPHEN TAB 325 MG TAB PO SCH ×4 (02:33→17:29)
[2020-01-30] MEDS: METOCLOPRAMIDE 5 MG/ML 2 ML VIAL IVP PRN ×2 (02:57→09:30)
[2020-01-30] MEDS: ACETAMINOPHEN TAB 325 MG TAB PO PRN (02:59)
[2020-01-30] MEDS: SODIUM CHLORIDE 0.9% 1,000 ML IV SCH ×2 (05:09→22:49)
[2020-01-30] MEDS: lisinopriL 20 MG TAB PO SCH (06:03)
[2020-01-30] MEDS: HYDROcodone/APAP 10-325MG 1 EACH TAB PO PRN ×3 (06:03→21:10)
[2020-01-30 06:06] LABS: Glucose,Whole Blood 162 mg/dL (75-99)
[2020-01-30 07:58] LABS: Basophils % (A) 1 %; Eosinophils # (A) 0.2 k/uL (0-0.7); Eosinophils % (A) 3 %; HCT 36.8 % (34.0-46.0); HGB 11.8 gm/dL (11.4-16.0); Lymphocytes # (A) 1.1 k/uL (1.0-4.8); Lymphocytes % (A) 17 %; MCH 28.5 pg (25.0-35.0); MCHC 32.2 g/dL (31.0-37.0); MCV 88.5 fL (80.0-100.0); Mean Platelet Volume 8.3; Monocytes # (A) 0.4 k/uL (0-1.0); Monocytes % (A) 6 %; Neutrophils # (A) 4.5 k/uL (1.3-7.7); Neutrophils % (A) 71 %; Platelet Count 198 k/uL (150-450); RBC 4.16 m/uL (3.80-5.40); WBC 6.3 k/uL (3.8-10.6)
[2020-01-30 08:07] LABS: ALT 14 U/L (4-34); AST 23 U/L (14-36); African American GFR (CKD) >90 (>60 ml/min/1.73 sqM); Albumin 3.4 g/dL (3.5-5.0); Alkaline Phosphatase 61 U/L (38-126); Anion Gap 10 mmol/L; Blood Urea Nitrogen 4 mg/dL (7-17); Calcium 8.4 mg/dL (8.4-10.2); Carbon Dioxide 21 mmol/L (22-30); Chloride 105 mmol/L (98-107); Glucose 207 mg/dL (74-99); Non-African American GFR(CKD) >90 (>60 ml/min/1.73 sqM); Sodium 136 mmol/L (137-145); Total Bilirubin 0.6 mg/dL (0.2-1.3); Total Protein 5.6 g/dL (6.3-8.2)
[2020-01-30] MEDS: ASPIRIN 81 MG PO SCH (08:15)
[2020-01-30] MEDS: SPIRONOLACTONE 25 MG TAB PO SCH (08:15)
[2020-01-30] MEDS: HYDROCORTISONE SUCCINATE 100 MG/2 ML VIAL IV SCH ×2 (08:15→16:23)
[2020-01-30] MEDS: MAGNESIUM OXIDE 400 MG TAB PO SCH (08:15)
[2020-01-30] MEDS: CLOPIDOGREL 75 MG TAB PO SCH (08:15)
[2020-01-30] MEDS: PANTOPRAZOLE 40 MG TABLET PO SCH ×2 (08:15→21:07)
[2020-01-30] MEDS: CHOLESTYRAMINE (WITH SUGAR) 4 GM PACKET PO SCH ×2 (08:16→17:29)
[2020-01-30] MEDS: VENLAFAXINE HCL ER 75 MG CAP PO SCH (08:16)
[2020-01-30 08:37] LABS: Potassium 3.8 mmol/L (3.5-5.1)
[2020-01-30] MEDS ORDERED: HYDROmorphone 0.5 MG/0.5 ML SYRINGE IVP STA ×2 (08:48→18:44)
[2020-01-30] MEDS ORDERED: diphenhydrAMINE 50 MG/ML 1 ML VIAL IVP STA (08:49)
[2020-01-30] MEDS ORDERED: MAGNESIUM SULFATE-D5W PMX 1 GM in DEXTROSE/WATER 1 100ML.BAG IVPB ONE (09:00)
[2020-01-30] MEDS ORDERED: hydroCHLOROthiazide 25 MG TAB PO ONE (11:25)
[2020-01-30 11:39] LABS: Glucose,Whole Blood 235 mg/dL (75-99)
[2020-01-30] MEDS: INSULIN ASPART (NovoLOG) 100 UNIT/ML VIAL SQ SCH ×3 (12:30→21:06)
[2020-01-30] MEDS: ERTAPENEM 1 GM in SODIUM CHLORIDE 0.9% 50 ML IVPB SCH (14:56)
--- NOTE | 2020-01-30 15:16 | PN ---
PROGRESS NOTE DATE OF SERVICE: 01/30/2020 REASON FOR FOLLOWUP: Urinary tract infection. INTERVAL HISTORY: Patient is currently afebrile. The patient has been better breathing comfortably. The patient denies having any chest pain. No abdominal pain. The patient diarrhea has slowed down. Still complaining of some urinary burning. PHYSICAL EXAMINATION: Blood pressure 139/90 with a pulse of 69, temperature of 98, she is 94% on room air. General description is an elderly female, up in the room in no distress. RESPIRATORY SYSTEM: Unlabored breathing, clear to auscultation anteriorly. HEART: S1, S2. Regular rate and rhythm ABDOMEN: Soft, no tenderness. LABS: Hemoglobin is 11.8, white count of 6.3, creatinine 0.42. Urine has been finalized with Citrobacter non ESBL pathogen. DIAGNOSTIC IMPRESSION AND PLAN: 1. Patient with recurrent urinary tract infection. This time she is growing Citrobacter with sensitive pathogen. However, the patient is allergic to PENICILLIN. CEPHALOSPORIN, SULFA and we cannot use the atenolol, as the patient is on SSRI. We will keep the patient on Invanz while inpatient, finishing therapy with short course of Macrobid 100 mg b.i.d. for 7 days. 2. Diarrhea. Stool for C difficile is negative. Patient clinically responded to Questran to continue. MMODL / IJN: [id number] /
--- NOTE | 2020-01-30 15:27 | ECHOF ---
Referral Reason:stroke MEASUREMENTS -------- HEIGHT: 152.4 cm WEIGHT: 63.5 kg BP: 139/79 RVIDd: 3.1 cm (< 3.3) IVSd: 1.5 cm (0.6 - 1.1) LVIDd: 4.3 cm (3.9 - 5.3) LVPWd: 1.5 cm (0.6 - 1.1) IVSs: 1.8 cm LVIDs: 2.9 cm LVPWs: 1.9 cm LA Diam: 3.4 cm (2.7 - 3.8) LAESV Index (A-L): 32.79 ml/m Ao Diam: 3.4 cm (2.0 - 3.7) AV Cusp: 1.5 cm (1.5 - 2.6) MV EXCURSION: 11.714 mm (> 18.000) MV EF SLOPE: 32 mm/s (70 - 150) EPSS: 0.4 cm MV E Fuad: 0.67 m/s MV DecT: 319 ms MV A Fuad: 1.01 m/s MV E/A Ratio: 0.66 AV maxP.54 mmHg AV meanP.64 mmHg RAP: 5.00 mmHg RVSP: 35.06 mmHg FINDINGS -------- Sinus rhythm. This was a technically adequate study. The left ventricular size is normal. There is moderate concentric left ventricular hypertrophy. O verall left ventricular systolic function is normal with, an EF between 60 - 65 %. The right ventricle is normal in size. LA is midly dilated 29-33ml/m2. The right atrium is normal in size. Interatrial and interventricular septum intact. There is mild aortic valve sclerosis. Trace to mild aortic regurgitation. There is mild aortic st enosis present. Peak/mean gradient across the Aortic Valve is 14.54mmHg / 7.64mmHg. Mild mitral regurgitation is present. Mild tricuspid regurgitation present. There is mild pulmonary hypertension. The right ventricular systolic pressure, as measured by Doppler, is 35.06mmHg. There is no pulmonic regurgitation present. The aortic root size is normal. Normal inferior vena cava with normal inspiratory collapse consistent with estimated right atrial pre ssure of 5 mmHg. There is no pericardial effusion. CONCLUSIONS -------- 1. The left ventricular size is normal. 2. There is moderate concentric left ventricular hypertrophy. 3. Overall left ventricular systolic function is normal with, an EF between 60 - 65 %. 4. LA is midly dilated 29-33ml/m2. 5. There is mild aortic valve sclerosis. 6. Trace to mild aortic regurgitation. 7. There is mild aortic stenosis present. 8. Peak/mean gradient across the Aortic Valve is 14.54mmHg / 7.64mmHg. 9. Mild mitral regurgitation is present. 10. Mild tricuspid regurgitation present. 11. There is mild pulmonary hypertension. 12. The right ventricular systolic pressure, as measured by Doppler, is 35.06mmHg. 13. consider MILAGROS if clinically indicated [employer] DIRECTOR: Ginger Henriquez RDCS
[2020-01-30 16:22] LABS: Glucose,Whole Blood 267 mg/dL (75-99)
[2020-01-30] MEDS: ONDANSETRON 4 MG TAB PO PRN (18:15)
[2020-01-30 21:04] LABS: Glucose,Whole Blood 218 mg/dL (75-99)
[2020-01-30] MEDS: ATORVASTATIN 40 MG TAB PO SCH (21:07)
[2020-01-30] MEDS: METOPROLOL SUCCINATE (ER) 50 MG TAB.ER.24H PO SCH (21:07)
--- NOTE | 2020-01-30 22:25 | P.PN ---
Subjective Progress Note Date: 01/30/20 She is feeling improved today although complains of R sided abdominal pain. Her culture is growing citrobacter garcia sensitive. She is more hypertensive today after starting the IV solucortef. No nausea, vomiting, fever or chills. Objective - Vital Signs Vital signs: Vital Signs Temp 98.2 F 01/30/20 16:16 Pulse 91 01/30/20 16:16 Resp 14 01/30/20 16:16 BP 175/83 01/30/20 16:16 Pulse Ox 97 01/30/20 16:16 Intake & Output 01/30/20 01/30/20 01/31/20 06:59 18:59 06:59 Intake Total 450 Balance 450 Intake: Oral 450 Other: Voiding Method Bedside Commode Bedside Commode Diaper Diaper Incontinent Incontinent # Voids 3 1 - Exam General: well nourished, well developed, NAD. Vitals reviewed Lungs: normal respiratory effort, no wheezes or rales CV: Regular rate and rhythm, no murmur. Peripheral pulses 2+ Abdomen: soft, nondistended, no organomegaly. Mild R sided tenderness Skin: warm and dry. - Labs CBC & Chem 7: 01/30/20 07:16 01/30/20 07:16 Labs: Abnormal Lab Results - Last 24 Hours (Table) 01/30/20 01/30/20 01/30/20 Range/Units 06:05 07:16 11:38 Sodium 136 L (137-145) mmol/L Carbon Dioxide 21 L (22-30) mmol/L BUN 4 L (7-17) mg/dL Creatinine 0.42 L (0.52-1.04) mg/dL Glucose 207 H (74-99) mg/dL POC Glucose (mg/dL) 162 H 235 H (75-99) mg/dL Total Protein 5.6 L (6.3-8.2) g/dL Albumin 3.4 L (3.5-5.0) g/dL 01/30/20 01/30/20 Range/Units 16:20 21:01 Sodium (137-145) mmol/L Carbon Dioxide (22-30) mmol/L BUN (7-17) mg/dL Creatinine (0.52-1.04) mg/dL Glucose (74-99) mg/dL POC Glucose (mg/dL) 267 H 218 H (75-99) mg/dL Total Protein (6.3-8.2) g/dL Albumin (3.5-5.0) g/dL Microbiology - Last 24 Hours (Table) 01/28/20 02:59 Blood Culture - Preliminary Blood No Growth after 48 hours 01/27/20 14:26 Urine Culture - Final Urine,Voided Citrobacter braakii Assessment and Plan (1) Intractable migraine with aura with status migrainosus Current Visit: No Status: Acute Code(s): G43.111 - MIGRAINE WITH AURA, INTRACTABLE, WITH STATUS MIGRAINOSUS SNOMED Code(s): 951339711 (2) UTI due to extended-spectrum beta lactamase (ESBL) producing Escherichia coli Current Visit: No Status: Acute Code(s): N39.0 - URINARY TRACT INFECTION, SITE NOT SPECIFIED; B96.29 - OTH ESCHERICHIA COLI THE CAUSE OF DISEASES CLASSD ELSWHR; Z16.12 - EXTENDED SPECTRUM BETA LACTAMASE (ESBL) RESISTANCE SNOMED Code(s): 787913112 (3) Adrenal insufficiency Current Visit: No Status: Chronic Code(s): E27.40 - UNSPECIFIED ADRENOCORTICAL INSUFFICIENCY SNOMED Code(s): 365176797 (4) DM type 2 (diabetes mellitus, type 2) Current Visit: No Status: Chronic Code(s): E11.9 - TYPE 2 DIABETES MELLITUS WITHOUT COMPLICATIONS SNOMED Code(s): 03706122 Plan: Continue invanz while inpatient, plan on macrobid on discharge per ID. Reduce dose of solucortef. Continue with ASA, plavix, lipitor. Pain control
[2020-01-31] MEDS: ACETAMINOPHEN TAB 325 MG TAB PO SCH ×4 (00:31→16:48)
[2020-01-31] MEDS: HYDROCORTISONE SUCCINATE 100 MG/2 ML VIAL IV SCH ×3 (00:33→16:32)
[2020-01-31] MEDS: SODIUM CHLORIDE 0.9% 1,000 ML IV SCH (00:38)
[2020-01-31] MEDS: HYDROcodone/APAP 10-325MG 1 EACH TAB PO PRN ×2 (02:43→06:35)
[2020-01-31] MEDS: ONDANSETRON 4 MG TAB PO PRN (05:53)
[2020-01-31 05:59] LABS: Glucose,Whole Blood 180 mg/dL (75-99)
[2020-01-31] MEDS: lisinopriL 20 MG TAB PO SCH (06:01)
[2020-01-31] MEDS: INSULIN ASPART (NovoLOG) 100 UNIT/ML VIAL SQ SCH ×3 (06:27→16:48)
[2020-01-31 08:20] VITALS: BP 143/73; PULSE 74; RESP 20; TEMP 98.5
[2020-01-31] MEDS: PANTOPRAZOLE 40 MG TABLET PO SCH (08:36)
[2020-01-31] MEDS: MAGNESIUM OXIDE 400 MG TAB PO SCH (08:36)
[2020-01-31] MEDS: ASPIRIN 81 MG PO SCH (08:36)
[2020-01-31] MEDS: CLOPIDOGREL 75 MG TAB PO SCH (08:36)
[2020-01-31] MEDS: SPIRONOLACTONE 25 MG TAB PO SCH (08:36)
[2020-01-31] MEDS: VENLAFAXINE HCL ER 75 MG CAP PO SCH (08:37)
[2020-01-31] MEDS: CHOLESTYRAMINE (WITH SUGAR) 4 GM PACKET PO SCH ×2 (08:43→16:42)
[2020-01-31] MEDS ORDERED: HYDROmorphone 0.5 MG/0.5 ML SYRINGE IVP STA (09:14)
[2020-01-31] MEDS ORDERED: diphenhydrAMINE 50 MG/ML 1 ML VIAL IVP STA (09:15)
[2020-01-31] MEDS ORDERED: MAGNESIUM SULFATE-D5W PMX 1 GM in DEXTROSE/WATER 1 100ML.BAG IVPB ONE (09:30)
[2020-01-31 11:29] LABS: Glucose,Whole Blood 232 mg/dL (75-99)
[2020-01-31] MEDS: ERTAPENEM 1 GM in SODIUM CHLORIDE 0.9% 50 ML IVPB SCH (13:42)
[2020-01-31 16:42] LABS: Glucose,Whole Blood 176 mg/dL (75-99)
--- NOTE | 2020-01-31 17:03 | PN ---
PROGRESS NOTE DATE OF SERVICE: 01/31/2020 REASON FOR FOLLOWUP: Recurrent urinary tract infection, multiple antibiotic allergies. INTERVAL HISTORY: Patient is currently afebrile. The patient is feeling better today, breathing comfortably. The patient denies having any chest pain. No shortness of breath or cough. No abdominal pain. Diarrhea has resolved. PHYSICAL EXAMINATION: Blood pressure 143/70 with a pulse of 74, temperature 98.5, she is 94% on room air. General description is an elderly female, lying in bed in no distress. RESPIRATORY SYSTEM: Unlabored breathing, clear to auscultation anteriorly. HEART: S1, S2. Regular rate and rhythm. ABDOMEN: Soft, no tenderness. LABS: No new labs have been obtained today. DIAGNOSTIC IMPRESSION AND PLAN: Patient with recurrent urinary tract infection, urine culture positive for Citrobacter. The patient did have multiple antibiotic allergies. Was treated with Invanz and previous history of ESBL. However, the patient presented with his oral Macrobid 100 mg b.i.d. for 7 to 10 days. In view of recurrent urinary tract infection, patient may benefit from intravaginal estrogen cream to prevent recurrent UTI. MMODL / IJN: [id number] / TAJ
--- NOTE | 2020-02-04 15:10 | CDI ---
Documentation Clarification Form Date: 02/04/20 From: Yumiko Garibay Phone: If you have a question about this query, please contact Lissy Chawla, [employer]ase Administration Supervisor at [phone] between 8am and 5pm. Admit Date: 01/31/20 Discharge Date: 01/31/20 Patient Name: EMELY HERNANDEZ Visit Number: [id number] ATTENTION: The Clinical Documentation Specialists (CDI) and [facility] Coding Staff appreciate your assistance in clarifying documentation. Please respond to the clarification below the line at the bottom and electronically sign. The CDI & [facility] Coding staff will review the response and follow-up if needed. Please note: Queries are made part of the Legal Health Record. If you have any questions, please contact the author of this message via ITS. Dear Dr. Andrew Gonsales, Conflicting documentation has been found in the medical record: Per H&P patient has sepsis secondary to UTI with tachycardia, fever and urine culture positive. Progress notes document UTI and not the sepsis. History/Risk Factors: hx UTI, DM, adrenocortical insufficiency, migrainosus migraines Clinical Indicators: WBC 10.0, Neutrophils 61%, CRP 56.6, Procalcitonin 0.22 Treatment: IV fluids, IV Invanz In your opinion, what is the most clinically appropriate diagnosis for this patient? Sepsis due to Citrobacter Sepsis ruled out Other explanation of clinical findings Unable to determine (no explanation for clinical findings) Sepsis due to Citrobacter MTDD
--- NOTE | 2020-02-17 08:32 | P.DS ---
Providers Date of admission: 01/31/20 08:01 Expected date of discharge: 01/31/20 Attending physician: Andrew Gonsales MD Consults: 01/27/20 16:32 Consult Physician Routine Consulting Provider: Jason Mccord Consult Reason/Comments: Dysarthria Do you want consulting provider notified?: Yes 01/28/20 01:42 Consult Physician Routine Consulting Provider: Chalino Osman Consult Reason/Comments: History of multiple UTI's and VRE. Do you want consulting provider notified?: Yes Primary care physician: Andrew Gonsales MD - Discharge Diagnosis(es) (1) Intractable migraine with aura with status migrainosus Status: Acute (2) UTI due to extended-spectrum beta lactamase (ESBL) producing Escherichia coli Status: Acute (3) Adrenal insufficiency Status: Chronic (4) DM type 2 (diabetes mellitus, type 2) Status: Chronic Hospital Course: Melissa Pena is a 69 yo F with PMH of recurrent UTI growing ESBL E coli requiring ertapenem course completed last month, intractable migraine, vertebral artery stenosis, T2DM, adrenal insufficiency, HTN who presented to the ED complaining of weakness an dysarthria over the past few days. She states that starting about 3 days ago she noticed feeling more unsteady and weak and apparently had also been slurring her words. She denies any weakness or change in her balance. Pt does complain of some dark and foul smelling urine. On presentation she was tachycardic to 130s, SpO2 92%, WBC 10k, procalcitonin 0.22, urine with occasional bacteria. Urine culture is positive with gram negative avery. Pt was admitted to medicine and seen by ID. She was started on IV invanz while awaiting culture. She did clinically improve with antibioitics. Her urine culutre did come back positive for citrobacter and she was discharged to complete an oral course of macrobid. She is additionally recommended to start vaginal estrogen cream due to her history of recurrent UTI. Pt recommended to follow up with PCP within 1 week of discharge. Discharge exam: General: well nourished, well developed, NAD. Vitals reviewed HENT: normocephalic, mucus membranes moist Lungs: normal respiratory effort, no wheezes or rales CV: Regular rate and rhythm, no murmur. Peripheral pulses 2+ Abdomen: soft, nondistended, no organomegaly Skin: warm and dry. Neuro: A&Ox3, normal mood and affect Patient Condition at Discharge: Stable Plan - Discharge Summary Discharge Rx Participant: No New Discharge Prescriptions: Continue Cholecalciferol [Vitamin D3 (25 Mcg = 1000 Iu)] 3,000 unit PO DAILY@0700 Metoprolol Succinate (ER) [Toprol XL] 50 mg PO HS Meclizine [Antivert] 25 mg PO QID PRN PRN Reason: Vertigo Hydrocortisone [Cortef] 15 mg PO AC-BRKFST Hydrocortisone [Cortef] 5 mg PO HS Aspirin 81 mg PO DAILY #0 Glucagon Emergency Kit 1 mg IM ONCE PRN PRN Reason: Hypoglycemia Ferrous Sulfate [Iron (65 MG Elemental)] 325 mg PO DAILY Vitamin B-Complex Drops 1 ml PO BID Thiamine [Vitamin B-1] 100 mg PO DAILY Folic Acid 0.4 mg PO DAILY Multivitamins, Thera Liquid [Theragran Liquid (formulary)] 30 ml PO DAILY L.acidoph,Paracasei, B.lactis [Probiotic] 2 cap PO BID Melatonin 5 mg PO HS PRN PRN Reason: Insomnia Cranberry 300mg 300 mg PO BID Potassium 99 mg PO DAILY Atorvastatin [Lipitor] 40 mg PO HS #30 tab Pantoprazole [Protonix] 40 mg PO BID Hydrocortisone [Cortef] 10 mg PO AC-LUNCH Venlafaxine HCl [Effexor XR] 75 mg PO DAILY Magnesium Oxide [Mag-Ox] 400 mg PO DAILY Promethazine 6.25MG/5Ml [Phenergan Syrup] 6.25 mg PO Q6H PRN PRN Reason: Cough Ondansetron HCl [Zofran] 4 mg PO Q6H PRN PRN Reason: Nausea And Vomiting Acetaminophen Tab [Tylenol] 1,000 mg PO Q6HR PRN PRN Reason: Migraine Headache Butalb/APAP/Caff 50-325-40Mg [Fioricet 50-325-40] 1 tab PO QID PRN PRN Reason: Migraine Headache Clopidogrel [Plavix] 75 mg PO DAILY Insulin Aspart [NovoLOG Flexpen] See Protocol SQ AC-TID Spironolactone [Aldactone] 50 mg PO DAILY HYDROcodone/APAP 10-325MG [[place] 10-325] 1 tab PO Q8H PRN #0 PRN Reason: Pain Insulin Glargine,Hum.rec.anlog [Lantus Solostar] 20 unit SQ HS@2200 #0 lisinopriL [Zestril] 30 mg PO W/BRKFST #45 tab No Action Estrogens, Conjugated Cream [Premarin Cream] 1 applicator VAGINAL WESA Metoclopramide [Reglan] 5 mg PO TID PRN PRN Reason: Nausea Discharge Medication List Cholecalciferol [Vitamin D3 (25 Mcg = 1000 Iu)] 3,000 unit PO DAILY@0700 12/01/14 [History] Metoprolol Succinate (ER) [Toprol XL] 50 mg PO HS 07/06/17 [History] Meclizine [Antivert] 25 mg PO QID PRN 11/26/17 [History] Hydrocortisone [Cortef] 15 mg PO AC-BRKFST 05/18/18 [History] Hydrocortisone [Cortef] 5 mg PO HS 06/26/18 [History] Aspirin 81 mg PO DAILY #0 07/02/18 [Rx] Glucagon Emergency Kit 1 mg IM ONCE PRN 08/12/18 [History] Cranberry 300mg 300 mg PO BID 10/08/18 [History] Ferrous Sulfate [Iron (65 MG Elemental)] 325 mg PO DAILY 10/08/18 [History] Folic Acid 0.4 mg PO DAILY 10/08/18 [History] L.acidoph,Paracasei, B.lactis [Probiotic] 2 cap PO BID 10/08/18 [History] Melatonin 5 mg PO HS PRN 10/08/18 [History] Multivitamins, Thera Liquid [Theragran Liquid (formulary)] 30 ml PO DAILY 10/08/18 [History] Potassium 99 mg PO DAILY 10/08/18 [History] Thiamine [Vitamin B-1] 100 mg PO DAILY 10/08/18 [History] Vitamin B-Complex Drops 1 ml PO BID 10/08/18 [History] Atorvastatin [Lipitor] 40 mg PO HS #30 tab 11/16/18 [Rx] Pantoprazole [Protonix] 40 mg PO BID 01/29/19 [History] Hydrocortisone [Cortef] 10 mg PO AC-LUNCH 08/30/19 [History] Venlafaxine HCl [Effexor XR] 75 mg PO DAILY 11/08/19 [History] Acetaminophen Tab [Tylenol] 1,000 mg PO Q6HR PRN 12/06/19 [History] Butalb/APAP/Caff 50-325-40Mg [Fioricet 50-325-40] 1 tab PO QID PRN 12/06/19 [History] Clopidogrel [Plavix] 75 mg PO DAILY 12/06/19 [History] Magnesium Oxide [Mag-Ox] 400 mg PO DAILY 12/06/19 [History] Ondansetron HCl [Zofran] 4 mg PO Q6H PRN 12/06/19 [History] Promethazine 6.25MG/5Ml [Phenergan Syrup] 6.25 mg PO Q6H PRN 12/06/19 [History] Insulin Aspart [NovoLOG Flexpen] See Protocol SQ AC-TID 12/30/19 [History] Spironolactone [Aldactone] 50 mg PO DAILY 12/30/19 [History] HYDROcodone/APAP 10-325MG [[place] 10-325] 1 tab PO Q8H PRN #0 01/06/20 [Rx] Insulin Glargine,Hum.rec.anlog [Lantus Solostar] 20 unit SQ HS@2200 #0 01/06/20 [Rx] lisinopriL [Zestril] 30 mg PO W/BRKFST #45 tab 01/06/20 [Rx] Estrogens, Conjugated Cream [Premarin Cream] 1 applicator VAGINAL WESA 02/16/20 [History] Metoclopramide [Reglan] 5 mg PO TID PRN 02/16/20 [History] Follow up Appointment(s)/Referral(s): China Barry MD [REFERRING] - 02/04/20 1:00 pm (Dr Barry's office will call) Andrew Gonsales MD [Primary Care Provider] - 02/03/20 3:30 pm [facility], [NON-STAFF] - 1-2 Days Patient Instructions/Handouts: Transient Ischemic Attack (DC), Urinary Tract Infection in Women (DC) Discharge Disposition: HOME WITH HOME HEALTH SERVICES
== END 2020-01-31 16:56 | disposition home health service (06) | DRG 872 ==
LOC: EC 14:01 → 3NCARDOBS 16:32 → OBSVTOIN 01-31 08:01
PROVIDERS: ADMIT Family Medicine; ATTEND Family Medicine
DX: A41.4 Sepsis due to anaerobes (principal); E27.40 Unspecified adrenocortical insufficiency; G45.9 Transient cerebral ischemic attack, unspecified; N39.0 Urinary tract infection, site not specified; E11.40 Type 2 diabetes mellitus with diabetic neuropathy, unspecified; Z79.4 Long term (current) use of insulin; Z89.421 Acquired absence of other right toe(s); J42 Unspecified chronic bronchitis; E21.3 Hyperparathyroidism, unspecified; G31.9 Degenerative disease of nervous system, unspecified; I11.9 Hypertensive heart disease without heart failure; H05.20 Unspecified exophthalmos; I65.03 Occlusion and stenosis of bilateral vertebral arteries; G43.111 Migraine with aura, intractable, with status migrainosus; E78.5 Hyperlipidemia, unspecified; R47.1 Dysarthria and anarthria; R40.2362 Coma scale, best motor response, obeys commands, at arrival to emergency department; R40.2142 Coma scale, eyes open, spontaneous, at arrival to emergency department; R40.2252 Coma scale, best verbal response, oriented, at arrival to emergency department; G47.33 Obstructive sleep apnea (adult) (pediatric); I49.3 Ventricular premature depolarization; I83.90 Asymptomatic varicose veins of unspecified lower extremity; H02.401 Unspecified ptosis of right eyelid; M79.7 Fibromyalgia; M89.9 Disorder of bone, unspecified; R19.7 Diarrhea, unspecified; Z79.82 Long term (current) use of aspirin; Z79.02 Long term (current) use of antithrombotics/antiplatelets; Z79.899 Other long term (current) drug therapy; Z87.440 Personal history of urinary (tract) infections; Z86.19 Personal history of other infectious and parasitic diseases; Z86.718 Personal history of other venous thrombosis and embolism; Z86.79 Personal history of other diseases of the circulatory system; Z87.442 Personal history of urinary calculi; Z86.14 Personal history of Methicillin resistant Staphylococcus aureus infection; Z87.81 Personal history of (healed) traumatic fracture; Z87.2 Personal history of diseases of the skin and subcutaneous tissue; Z87.39 Personal history of other diseases of the musculoskeletal system and connective tissue; Z90.49 Acquired absence of other specified parts of digestive tract; Z87.19 Personal history of other diseases of the digestive system; Z90.710 Acquired absence of both cervix and uterus; Z87.42 Personal history of other diseases of the female genital tract; Z90.89 Acquired absence of other organs; Z98.42 Cataract extraction status, left eye; Z98.41 Cataract extraction status, right eye; Z86.69 Personal history of other diseases of the nervous system and sense organs; Z87.09 Personal history of other diseases of the respiratory system; Z86.73 Personal history of transient ischemic attack (TIA), and cerebral infarction without residual deficits; Z98.890 Other specified postprocedural states; Z88.6 Allergy status to analgesic agent; Z88.1 Allergy status to other antibiotic agents; Z88.5 Allergy status to narcotic agent; Z88.0 Allergy status to penicillin; Z88.2 Allergy status to sulfonamides; Z88.8 Allergy status to other drugs, medicaments and biological substances; Z82.49 Family history of ischemic heart disease and other diseases of the circulatory system; Z83.3 Family history of diabetes mellitus; Z80.49 Family history of malignant neoplasm of other genital organs; Z83.6 Family history of other diseases of the respiratory system; Z82.3 Family history of stroke
CPT/HCPCS: 36415; 70450; 70551; 71046; 80053; 80061; 81001; 84145; 84484; 85025; 85610; 85730; 86140; 87040; 87077; 87086; 87186; 87324; 93005; 93306; 93880; 96361; 96374; 96375; 96376; 99285

== ENCOUNTER 2020-02-16 08:44 | Inpatient (IN) | payer MEDICARE, BC ==
[2020-02-16] MEDS ORDERED: ONDANSETRON 4 MG/2 ML VIAL IVP STA (08:49)
[2020-02-16] MEDS ORDERED: SODIUM CHLORIDE 0.9% 1,000 ML IV STA (08:50)
[2020-02-16] MEDS ORDERED: SODIUM CHLORIDE 0.9% 500 ML 500 ML IV STA (08:50)
--- NOTE | 2020-02-16 09:02 | ED ---
Chest Pain HPI - General Chief Complaint: Chest Pain Stated Complaint: Chest Pain Time Seen by Provider: 02/16/20 08:44 Source: patient, EMS, RN notes reviewed, old records reviewed Mode of arrival: EMS Limitations: no limitations - History of Present Illness Initial Comments: This is a 69-year-old female with a known history of heart disease who states she's started developing chest pain at around 2:00 this morning. She was trying to sleep she states it was 10/10 severity pressure-like in nature over her anterior chest. She also is had nausea and vomiting for past 2 days she states she's been unable take her medication. Not able to eat or drink. He does get very weak when she tries get up to walk or move. He does state that she has a proximal a 60% stenosis of one of her blood vessels. No other complaints or modifying factors. MD Complaint: chest pain, other - Related Data Home Medications Medication Instructions Recorded Confirmed Cholecalciferol [Vitamin D3 (25 3,000 unit PO DAILY@0700 12/01/14 01/27/20 Mcg = 1000 Iu)] Metoprolol Succinate (ER) [Toprol 50 mg PO HS 07/06/17 01/27/20 XL] Meclizine [Antivert] 25 mg PO QID PRN 11/26/17 01/27/20 Hydrocortisone [Cortef] 15 mg PO AC-BRKFST 05/18/18 01/27/20 Hydrocortisone [Cortef] 5 mg PO HS 06/26/18 01/27/20 Glucagon Emergency Kit 1 mg IM ONCE PRN 08/12/18 01/27/20 Cranberry 300mg 300 mg PO BID 10/08/18 01/27/20 Ferrous Sulfate [Iron (65 MG 325 mg PO DAILY 10/08/18 01/27/20 Elemental)] Folic Acid 0.4 mg PO DAILY 10/08/18 01/27/20 L.acidoph,Paracasei, B.lactis 2 cap PO BID 10/08/18 01/27/20 [Probiotic] Melatonin 5 mg PO HS PRN 10/08/18 01/27/20 Multivitamins, Thera Liquid 30 ml PO DAILY 10/08/18 01/27/20 [Theragran Liquid (formulary)] Potassium 99 mg PO DAILY 10/08/18 01/27/20 Thiamine [Vitamin B-1] 100 mg PO DAILY 10/08/18 01/27/20 Vitamin B-Complex Drops 1 ml PO BID 10/08/18 01/27/20 Pantoprazole [Protonix] 40 mg PO BID 01/29/19 01/27/20 Hydrocortisone [Cortef] 10 mg PO AC-LUNCH 08/30/19 01/27/20 Venlafaxine HCl [Effexor XR] 75 mg PO DAILY 11/08/19 01/27/20 Acetaminophen Tab [Tylenol] 1,000 mg PO Q6HR PRN 12/06/19 01/27/20 Butalb/APAP/Caff 50-325-40Mg 1 tab PO QID PRN 12/06/19 01/27/20 [Fioricet 50-325-40] Clopidogrel [Plavix] 75 mg PO DAILY 12/06/19 01/27/20 Magnesium Oxide [Mag-Ox] 400 mg PO DAILY 12/06/19 01/27/20 Ondansetron HCl [Zofran] 4 mg PO Q6H PRN 12/06/19 01/27/20 Prochlorperazine [Compazine] 10 mg PO BID 12/06/19 01/27/20 Promethazine 6.25MG/5Ml [Phenergan 6.25 mg PO Q6H PRN 12/06/19 01/27/20 Syrup] Insulin Aspart [NovoLOG Flexpen] See Protocol SQ AC-TID 12/30/19 01/27/20 Spironolactone [Aldactone] 50 mg PO DAILY 12/30/19 01/27/20 Previous Rx's Medication Instructions Recorded Aspirin 81 mg PO DAILY #0 07/02/18 Atorvastatin [Lipitor] 40 mg PO HS #30 tab 11/16/18 HYDROcodone/APAP 10-325MG [[place] 1 tab PO Q8H PRN #0 01/06/20 10-325] Insulin Glargine,Hum.rec.anlog 20 unit SQ HS@2200 #0 01/06/20 [Lantus Solostar] lisinopriL [Zestril] 30 mg PO W/BRKFST #45 tab 01/06/20 Nitrofurantoin Monohyd/M-Cryst 100 mg PO Q12HR #21 cap 01/31/20 [Macrobid] Allergies Allergy/AdvReac Type Severity Reaction Status Date / Time butorphanol tartrate Allergy BLISTERS Verified 02/16/20 08:46 [From Stadol] IN MOUTH ceftriaxone [From Rocephin] Allergy Unknown Verified 02/16/20 08:46 clarithromycin [From Biaxin] Allergy Rash/Hives Verified 02/16/20 08:46 codeine Allergy Rash/Hives Verified 02/16/20 08:46 ergotamine tartrate Allergy Unknown Verified 02/16/20 08:46 [From Cafergot] erythromycin base Allergy RASH, GI Verified 02/16/20 08:46 [From E-Mycin] SYMPTOMS ketorolac tromethamine Allergy Rash/Hives Verified 02/16/20 08:46 [From Toradol] liraglutide [From Victoza] Allergy Rash/Hives Verified 02/16/20 08:46 morphine Allergy Rash/Hives Verified 02/16/20 08:46 Penicillins Allergy Rash/Hives Verified 02/16/20 08:46 pentazocine lactate Allergy SEVERE Verified 02/16/20 08:46 [From Talwin] BLISTERS IN MOUTH pregabalin [From Lyrica] Allergy Rash/Hives Verified 02/16/20 08:46 propoxyphene HCl Allergy Rash/Hives Verified 02/16/20 08:46 [From Darvon] Sulfa (Sulfonamide Allergy Rash/Hives Verified 02/16/20 08:46 Antibiotics) tramadol Allergy Unknown Verified 02/16/20 08:46 monosodium glutamate [MSG] AdvReac Nausea & Verified 02/16/20 08:46 Vomiting nalbuphine HCl [From Nubain] AdvReac Nausea & Verified 02/16/20 08:46 Vomiting Review of Systems ROS Statement: Those systems with pertinent positive or pertinent negative responses have been documented in the HPI. ROS Other: All systems not noted in ROS Statement are negative. EKG Findings - EKG Results: EKG: interpreted by FREDDY, sinus rhythm (Sinus rhythm 89. Interval 140 QRS duration 84 QT since QTC 348/423 evidence of LVH nonspecific ST-T wave configuration) Past Medical History Past Medical History: Diabetes Mellitus, Deep Vein Thrombosis (DVT), Fibromyalgia, Hyperlipidemia, Hypertension, Osteoarthritis (OA), Pneumonia, Renal Disease, Sleep Apnea/CPAP/BIPAP, Vascular Disorder Additional Past Medical History / Comment(s): Pt recently admitted to [facility] on 11/28/19 with recurerent UTI. 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, DVT R calf in 1976, cardiac murmur, occipital neuraligia, balance issues-has narrowing of vessels "in the back of my head", vertigo, varicosities, states rt shoulder torn rotator cuff History of Any Multi-Drug Resistant Organisms: ESBL, MRSA, VRE Date of last positivie culture/infection: 11/09/19 ESBL; 03/10/11 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 MDRO Source:: ESBL URINE; MRSA 4th rt TOE VRE URINE Past Surgical History: Appendectomy, Back Surgery, Bladder Surgery, Breast Surgery, Cholecystectomy, Heart Catheterization, Hysterectomy, Orthopedic Surgery, Tonsillectomy Additional Past Surgical History / Comment(s): Lumbar fusions, bladder suspension, occipital nerve blocks, 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, R wrist/elbow nerve repair, bone removed R shoulder, 4th toe R foot partial amputation, bilateral feet/bunionectomies, R knee arthroscopies, R orbit decompression with ethmoidectomy and eyelid lift, EGD, colonoscopies, cystocopies, lithotripsy/stents, bilateral breast reduction, bilateral cataract removals, parathyroid surgery - April 2019, pain clinic procedures Past Anesthesia/Blood Transfusion Reactions: No Reported Reaction Additional Past Anesthesia/Blood Transfusion Reaction / Comment(s): never recieved blood Past Psychological History: No Psychological Hx Reported Smoking Status: Never smoker Past Alcohol Use History: None Reported Past Drug Use History: None Reported - Past Family History Father Family Medical History: Coronary Artery Disease (CAD), CVA/TIA, Diabetes Mellitus, Myocardial Infarction ([place]), Pneumonia Additional Family Medical History / Comment(s): Father at the age of 78yrs from [place] and pneumonia. Mother Family Medical History: Cancer Additional Family Medical History / Comment(s): Mother had uterine cancer. She recently at the age of 96yrs old from [employer]. General Exam - General Exam Comments Initial Comments: Physical well-developed asthenic appearing female who is awake alert oriented 3 Limitations: no limitations General appearance: alert, in no apparent distress Head exam: Present: atraumatic, normocephalic, normal inspection Eye exam: Present: PERRL, EOMI, other (The patient does demonstrate some exophthalmos) ENT exam: Present: mucous membranes dry Neck exam: Present: normal inspection. Absent: tenderness, meningismus, lymphadenopathy Respiratory exam: Present: normal lung sounds bilaterally, chest wall tenderness (Tennis palpation over the anterior chest wall especially left costal sternal margin. Palpation does reproduce the patient's pain she states). Absent: respiratory distress, wheezes, rales, rhonchi, stridor Cardiovascular Exam: Present: regular rate, normal rhythm, normal heart sounds. Absent: systolic murmur, diastolic murmur, rubs, gallop, clicks GI/Abdominal exam: Present: soft, normal bowel sounds. Absent: distended, tenderness, guarding, rebound, rigid Extremities exam: Present: normal inspection, full ROM, normal capillary refill. Absent: tenderness, pedal edema, joint swelling, calf tenderness Back exam: Present: normal inspection Neurological exam: Present: alert, oriented X3, CN II-XII intact Psychiatric exam: Present: normal affect, normal mood Skin exam: Present: warm, dry, intact, normal color. Absent: rash Course Vital Signs 02/16/20 02/16/20 02/16/20 08:47 08:50 09:31 Temperature 98.9 F Pulse Rate 64 85 Pulse Rate [ 90 Tailer Off ] Respiratory 18 18 Rate Blood Pressure 167/114 171/98 O2 Sat by Pulse 98 98 Oximetry - Reevaluation(s) Reevaluation #1: 02/16/20 09:59 Reevaluation patient she is feeling somewhat better with respect to the pain she still feeling nauseated in spite of fluids and antinausea medication. Chest Pain MDM - MDM I did review the imaging no evidence of acute processes. Patient does demonstrate evidence of dehydration and hypomagnesemia chest pain. Patient will be admitted the case is discussed with Dr. Nuñez from [facility] Disposition Clinical Impression: Chest pain, Dehydration, Hypomagnesemia syndrome, Intractable vomiting with nausea Disposition: ADMITTED IP TO THIS HOSP Condition: Fair Referrals: Andrew Gonsales MD [Primary Care Provider] - 1-2 days
[2020-02-16 09:15] LABS: Basophils # (A) 0.1 k/uL (0-0.2); Basophils % (A) 1 %; Eosinophils # (A) 0.2 k/uL (0-0.7); Eosinophils % (A) 2 %; HCT 42.5 % (34.0-46.0); HGB 13.6 gm/dL (11.4-16.0); Lymphocytes # (A) 2.6 k/uL (1.0-4.8); Lymphocytes % (A) 31 %; MCH 28.2 pg (25.0-35.0); MCHC 32.1 g/dL (31.0-37.0); MCV 87.7 fL (80.0-100.0); Mean Platelet Volume 7.7; Monocytes # (A) 0.6 k/uL (0-1.0); Monocytes % (A) 7 %; Neutrophils # (A) 4.8 k/uL (1.3-7.7); Neutrophils % (A) 56 %; Platelet Count 266 k/uL (150-450); RBC 4.84 m/uL (3.80-5.40); RDW 13.8 % (11.5-15.5); WBC 8.5 k/uL (3.8-10.6)
[2020-02-16] MEDS ORDERED: HYDROmorphone 1 MG/ML 1 ML SYRINGE IVP STA (09:17)
[2020-02-16 09:23] LABS: ALT 17 U/L (4-34); AST 26 U/L (14-36); African American GFR (CKD) >90 (>60 ml/min/1.73 sqM); Albumin 4.1 g/dL (3.5-5.0); Alkaline Phosphatase 69 U/L (38-126); Anion Gap 13 mmol/L; Blood Urea Nitrogen 19 mg/dL (7-17); Calcium 10.2 mg/dL (8.4-10.2); Carbon Dioxide 23 mmol/L (22-30); Chloride 97 mmol/L (98-107); Creatine Kinase 48 U/L (30-135); Glucose 223 mg/dL (74-99); Magnesium 1.3 mg/dL (1.6-2.3); Non-African American GFR(CKD) >90 (>60 ml/min/1.73 sqM); Potassium 4.2 mmol/L (3.5-5.1); Sodium 133 mmol/L (137-145); Total Bilirubin 0.5 mg/dL (0.2-1.3); Total Protein 6.4 g/dL (6.3-8.2)
[2020-02-16 09:30] LABS: INR 0.9 (<1.2); Prothrombin Time 9.4 sec (9.0-12.0)
[2020-02-16 09:37] LABS: Partial Thromboplastin Time 17.9 sec (22.0-30.0)
[2020-02-16] MEDS ORDERED: MAGNESIUM SULFATE-D5W PMX 1 GM in DEXTROSE/WATER 1 100ML.BAG IVPB ONE (09:57)
--- NOTE | 2020-02-16 09:59 | XR ---
EXAMINATION TYPE: XR chest 2V DATE OF EXAM: 02/16/2020 COMPARISON: 01/27/2020 INDICATION: Chest pain TECHNIQUE: Frontal and lateral views of the chest are obtained. FINDINGS: The heart size is normal. The pulmonary vasculature is normal. The lungs are clear. IMPRESSION: 1. No acute pulmonary process.
[2020-02-16] MEDS ORDERED: NALOXONE 0.4 MG/ML 1 ML VIAL IV PRN (10:01)
[2020-02-16] MEDS ORDERED: MELATONIN 5 MG TABLET PO PRN (10:03)
[2020-02-16] MEDS ORDERED: MECLIZINE 25 MG TAB PO PRN (10:03)
[2020-02-16] MEDS ORDERED: PROMETHAZINE HCL 6.25 MG/5 ML CUP PO PRN (10:03)
[2020-02-16] MEDS: ONDANSETRON 4 MG/2 ML VIAL IVP PRN ×3 (11:23→23:56)
[2020-02-16] MEDS: HYDROmorphone 0.5 MG/0.5 ML SYRINGE IVP PRN ×4 (11:23→21:45)
[2020-02-16 11:37] VITALS: BMI 32.3
[2020-02-16 11:51] LABS: Glucose,Whole Blood 246 mg/dL (75-99)
[2020-02-16] MEDS ORDERED: methylPREDNISolone SOD SUCCI 125 MG/2 ML VIAL IV STA (12:00)
[2020-02-16] MEDS ORDERED: Magnesium Replacement Protocol 1 EACH MISC MISCELLANE PRN (12:01)
--- NOTE | 2020-02-16 12:04 | P.HPIM ---
History of Present Illness This is a pleasant 69 years old female with past medical history of recurrent UTI with ESBL E. coli, intractable migraine, vertebral artery stenosis, type 2 diabetes mellitus, adrenal insufficiency, hypertension. She is a patient of Dr. Gonsales who will resume the care of the patient tomorrow. She was recently discharged from the hospital for UTI with ESBL E. coli. Presents today because of chest pain which woke her from sleep last night about 10/10 in severity when she came in currently 8/10 with pain medication, felt like throbbing and sharp, not increased by deep inspiration or coughing. With no associated dyspnea or palpitation, no coughing. No dizziness. She states similar to the chest pain she had 1 year ago, as per patient she had cardiac cath which showed 60% stenosis in her coronary arteries. Also patient has been complaining of from nausea vomiting about 5 times today with no blood. No abdominal pain, she had regular bowel movement yesterday. And she has 2 weeks of diarrhea which stopped now. She never smoked, occasional alcohol and no illicit drugs. She is not on anticoagulation. CBC and BMP were unremarkable except for mild low sodium at 133, creatinine is normal. Glucose is elevated at 223, magnesium is 1.3. Troponin is negative with less than 0.012, proBNP is 517, lipase is normal at 57 EKG: Normal sinus rhythm at 89 BPM with no significant ST-T changes. Chest x- ray: No acute process. Recent carotid Doppler was negative for significant stenosis. Recent echo on 01/28/20 showing ejection fraction about 60-65%, moderate LVH. She had recent negative MRI of the brain for acute abnormality Emergency room she received a bolus of 500 mL of normal saline, magnesium replacement, Zofran and Dilaudid. Review of Systems CONSTITUTIONAL: No fever, no malaise, no fatigue. HEENT: No recent visual problems or hearing problems. Denied any sore throat. CARDIOVASCULAR: No orthopnea, PND, no palpitations, no syncope. PULMONARY: No shortness of breath, no cough, no hemoptysis. GASTROINTESTINAL: No diarrhea, no abdominal pain. Normoactive bowel sounds. NEUROLOGICAL: No headaches, no weakness, no numbness. HEMATOLOGICAL: Denies any bleeding or petechiae. GENITOURINARY: Denies any burning micturition, frequency, or urgency. MUSCULOSKELETAL/RHEUMATOLOGICAL: Denies any joint pain, swelling, or any muscle pain. ENDOCRINE: Denies any polyuria or polydipsia. Past Medical History Past Medical History: Diabetes Mellitus, Deep Vein Thrombosis (DVT), Fibromyalgia, Hyperlipidemia, Hypertension, Osteoarthritis (OA), Pneumonia, Renal Disease, Sleep Apnea/CPAP/BIPAP, Vascular Disorder Additional Past Medical History / Comment(s): Pt recently admitted to [facility] on 11/28/19 with recurerent UTI. 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, DVT R calf in 1976, cardiac murmur, occipital neuraligia, balance issues-has narrowing of vessels "in the back of my head", vertigo, varicosities, states rt shoulder torn rotator cuff History of Any Multi-Drug Resistant Organisms: ESBL, MRSA, VRE Date of last positivie culture/infection: 11/09/19 ESBL; 03/10/11 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 MDRO Source:: ESBL URINE; MRSA 4th rt TOE VRE URINE Past Surgical History: Appendectomy, Back Surgery, Bladder Surgery, Breast Surgery, Cholecystectomy, Heart Catheterization, Hysterectomy, Orthopedic Surger y, Tonsillectomy Additional Past Surgical History / Comment(s): Lumbar fusions, bladder suspension, occipital nerve blocks, 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, R wrist/elbow nerve repair, bone removed R shoulder, 4th toe R foot partial amputation, bilateral feet/bunionectomies, R knee arthroscopies, R orbit decompression with ethmoidectomy and eyelid lift, EGD, colonoscopies, cystocopies, lithotripsy/stents, bilateral breast reduction, bilateral cataract removals, parathyroid surgery - April 2019, pain clinic procedures Past Anesthesia/Blood Transfusion Reactions: No Reported Reaction Additional Past Anesthesia/Blood Transfusion Reaction / Comment(s): never recieved blood Past Psychological History: Depression Additional Psychological History / Comment(s): Pt resides with her spouse. She uses a walker. She normally drives. She has a nebulizer, cpap, bsc, shower chair, bp machine, dexcom monitor system for her bs. Smoking Status: Never smoker Past Alcohol Use History: None Reported Additional Past Alcohol Use History / Comment(s): no alcohol Past Drug Use History: None Reported - Past Family History Father Family Medical History: Coronary Artery Disease (CAD), CVA/TIA, Diabetes Mellitus, Myocardial Infarction ([place]), Pneumonia Additional Family Medical History / Comment(s): Father at the age of 78yrs from [place] and pneumonia. Mother Family Medical History: Cancer Additional Family Medical History / Comment(s): Mother had uterine cancer. She recently at the age of 96yrs old from [employer] [place]. Medications and Allergies Home Medications Medication Instructions Recorded Confirmed Type Cholecalciferol [Vitamin D3 (25 3,000 unit PO DAILY@0700 12/01/14 02/16/20 History Mcg = 1000 Iu)] Metoprolol Succinate (ER) [Toprol 50 mg PO HS 07/06/17 02/16/20 History XL] Meclizine [Antivert] 25 mg PO QID PRN 11/26/17 02/16/20 History Hydrocortisone [Cortef] 15 mg PO AC-BRKFST 05/18/18 02/16/20 History Hydrocortisone [Cortef] 5 mg PO HS 06/26/18 02/16/20 History Aspirin 81 mg PO DAILY #0 07/02/18 02/16/20 Rx Glucagon Emergency Kit 1 mg IM ONCE PRN 08/12/18 02/16/20 History Cranberry 300mg 300 mg PO BID 10/08/18 02/16/20 History Ferrous Sulfate [Iron (65 MG 325 mg PO DAILY 10/08/18 02/16/20 History Elemental)] Folic Acid 0.4 mg PO DAILY 10/08/18 02/16/20 History L.acidoph,Paracasei, B.lactis 2 cap PO BID 10/08/18 02/16/20 History [Probiotic] Melatonin 5 mg PO HS PRN 10/08/18 02/16/20 History Multivitamins, Thera Liquid 30 ml PO DAILY 10/08/18 02/16/20 History [Theragran Liquid (formulary)] Potassium 99 mg PO DAILY 10/08/18 02/16/20 History Thiamine [Vitamin B-1] 100 mg PO DAILY 10/08/18 02/16/20 History Vitamin B-Complex Drops 1 ml PO BID 10/08/18 02/16/20 History Atorvastatin [Lipitor] 40 mg PO HS #30 tab 11/16/18 02/16/20 Rx Pantoprazole [Protonix] 40 mg PO BID 01/29/19 02/16/20 History Hydrocortisone [Cortef] 10 mg PO AC-LUNCH 08/30/19 02/16/20 History Venlafaxine HCl [Effexor XR] 75 mg PO DAILY 11/08/19 02/16/20 History Acetaminophen Tab [Tylenol] 1,000 mg PO Q6HR PRN 12/06/19 02/16/20 History Butalb/APAP/Caff 50-325-40Mg 1 tab PO QID PRN 12/06/19 02/16/20 History [Fioricet 50-325-40] Clopidogrel [Plavix] 75 mg PO DAILY 12/06/19 02/16/20 History Magnesium Oxide [Mag-Ox] 400 mg PO DAILY 12/06/19 02/16/20 History Ondansetron HCl [Zofran] 4 mg PO Q6H PRN 12/06/19 02/16/20 History Prochlorperazine [Compazine] 10 mg PO BID 12/06/19 02/16/20 History Promethazine 6.25MG/5Ml [Phenergan 6.25 mg PO Q6H PRN 12/06/19 02/16/20 History Syrup] Insulin Aspart [NovoLOG Flexpen] See Protocol SQ AC-TID 12/30/19 02/16/20 History Spironolactone [Aldactone] 50 mg PO DAILY 12/30/19 02/16/20 History HYDROcodone/APAP 10-325MG [[place] 1 tab PO Q8H PRN #0 01/06/20 02/16/20 Rx 10-325] Insulin Glargine,Hum.rec.anlog 20 unit SQ HS@2200 #0 01/06/20 02/16/20 Rx [Lantus Solostar] lisinopriL [Zestril] 30 mg PO W/BRKFST #45 tab 01/06/20 02/16/20 Rx Cholestyramine (with Sugar) 4 gm PO BID 02/16/20 02/16/20 History [Cholestyramine Packet] Estrogens, Conjugated Cream 1 applicator VAGINAL DAILY 02/16/20 02/16/20 History [Premarin Cream] Allergies Allergy/AdvReac Type Severity Reaction Status Date / Time butorphanol tartrate Allergy BLISTERS Verified 02/16/20 10:39 [From Stadol] IN MOUTH ceftriaxone [From Rocephin] Allergy Unknown Verified 02/16/20 10:39 clarithromycin [From Biaxin] Allergy Rash/Hives Verified 02/16/20 10:39 codeine Allergy Rash/Hives Verified 02/16/20 10:39 ergotamine tartrate Allergy Unknown Verified 02/16/20 10:39 [From Cafergot] erythromycin base Allergy RASH, GI Verified 02/16/20 10:39 [From E-Mycin] SYMPTOMS ketorolac tromethamine Allergy Rash/Hives Verified 02/16/20 10:39 [From Toradol] liraglutide [From Victoza] Allergy Rash/Hives Verified 02/16/20 10:39 morphine Allergy Rash/Hives Verified 02/16/20 10:39 Penicillins Allergy Rash/Hives Verified 02/16/20 10:39 pentazocine lactate Allergy SEVERE Verified 02/16/20 10:39 [From Talwin] BLISTERS IN MOUTH pregabalin [From Lyrica] Allergy Rash/Hives Verified 02/16/20 10:39 propoxyphene HCl Allergy Rash/Hives Verified 02/16/20 10:39 [From Darvon] Sulfa (Sulfonamide Allergy Rash/Hives Verified 02/16/20 10:39 Antibiotics) tramadol Allergy Unknown Verified 02/16/20 10:39 monosodium glutamate [MSG] AdvReac Nausea & Verified 02/16/20 10:39 Vomiting nalbuphine HCl [From Nubain] AdvReac Nausea & Verified 02/16/20 10:39 Vomiting Physical Exam Vitals: Vital Signs Temp Pulse Pulse Resp BP BP Pulse Ox 02/16/20 11:01 98.2 F 65 16 174/80 97 02/16/20 10:22 98.1 F 67 18 164/76 97 02/16/20 09:31 85 18 171/98 98 02/16/20 08:50 90 02/16/20 08:47 98.9 F 64 18 167/114 98 Intake and Output 02/15/20 02/16/20 02/16/20 22:59 06:59 14:59 Other: Weight 75.16 kg GENERAL: The patient is alert and oriented x3, not in any acute distress. Well developed, well nourished. HEENT: Pupils are round and equally reacting to light. EOMI. No scleral icterus. No conjunctival pallor. Normocephalic, atraumatic. No pharyngeal erythema. No thyromegaly. -CARDIOVASCULAR: S1 and S2 present. No murmurs, rubs, or gallops. Chest wall tenderness at the site of chest pain, above her left breast PULMONARY: Chest is clear to auscultation, no wheezing or crackles. ABDOMEN: Soft, nontender, nondistended, normoactive bowel sounds. No palpable organomegaly. MUSCULOSKELETAL: No joint swelling or deformity. EXTREMITIES: No cyanosis, clubbing, or pedal edema. NEUROLOGICAL: Gross neurological examination did not reveal any focal deficits. SKIN: No rashes. No petechiae Results CBC & Chem 7: 02/16/20 09:08 02/16/20 09:08 Labs: Abnormal Lab Results - Last 24 Hours (Table) 02/16/20 02/16/20 Range/Units 09:08 09:08 APTT 17.9 L (22.0-30.0) sec Sodium 133 L (137-145) mmol/L Chloride 97 L (98-107) mmol/L BUN 19 H (7-17) mg/dL Glucose 223 H (74-99) mg/dL Magnesium 1.3 L (1.6-2.3) mg/dL Thrombosis Risk Factor Assmnt - Choose All That Apply Any of the Below Risk Factors Present?: Yes Each Factor Represents 1 point: Abnormal pulmonary function (COPD), Obesity (BMI >25) Other Risk Factors: Yes Each Risk Factor Represents 2 Points: Age 61-74 years Each Risk Factor Represents 3 Points: History of DVT/PE Other congenital or acquired thrombophilia - If yes, enter type in comment: No Thrombosis Risk Factor Assessment Total Risk Factor Score: 7 Thrombosis Risk Factor Assessment Level: High Risk Assessment and Plan Assessment: Chest pain, looks like musculoskeletal in nature, rule out cardiac causes Nausea and vomiting Hypomagnesemia Type 2 diabetes mellitus Hypertension Hyperlipidemia Sleep apnea on CPAP/BiPAP Migraine and occipital neuralgia Arthritis Fibromyalgia Recurrent UTI with ESBL E. coli Nephrolithiasis Anginal insufficiency on Cortef Intractable migraine Remote History of DVT, not on anticoagulation Plan: this is a pleasant 69 years old female who presents with chest pain, recurrent nausea vomiting. Continue with IV fluid, electrolytes replacement of magnesium. Clear liquid diet, pain management. Cardiology consult. IV fluids Labs and medication were reviewed.. Continue same treatment. Continue with symptomatic treatment. Resume home medication. Monitor lytes and vitals. DVT and GI prophylaxis. Further recommendations of the clinical course of the patient DVT prophylaxis: Subcutaneous heparin GI Prophylaxis: Pepcid Dr. Gonsales will resume the care of the patient tomorrow
[2020-02-16] MEDS: DEXTROSE 5%-0.9% NACL 1,000 ML IV SCH (12:27)
[2020-02-16] MEDS: HYDROCORTISONE 10 MG TAB PO SCH ×2 (14:10→20:38)
[2020-02-16 17:06] LABS: Glucose,Whole Blood 283 mg/dL (75-99)
[2020-02-16] MEDS: PANTOPRAZOLE 40 MG TABLET PO SCH (17:21)
[2020-02-16 20:08] LABS: Glucose,Whole Blood 339 mg/dL (75-99)
[2020-02-16] MEDS: INSULIN DETEMIR (LEVEMIR) 100 UNIT/ML SYR SQ SCH (20:38)
[2020-02-16] MEDS: HEPARIN SODIUM,PORCINE 5,000 UNIT/ML 1 ML VIAL SQ SCH (20:38)
[2020-02-16] MEDS: METOPROLOL SUCCINATE (ER) 50 MG TAB.ER.24H PO SCH (20:38)
[2020-02-16] MEDS: ATORVASTATIN 40 MG TAB PO SCH (21:31)
[2020-02-16] MEDS: FAMOTIDINE 20 MG/2 ML VIAL IV SCH (21:46)
[2020-02-17] MEDS: DEXTROSE 5%-0.9% NACL 1,000 ML IV SCH (01:37)
[2020-02-17] MEDS: HYDROmorphone 0.5 MG/0.5 ML SYRINGE IVP PRN ×3 (01:38→09:15)
[2020-02-17] MEDS: lisinopriL 10 MG TAB PO SCH (05:46)
[2020-02-17] MEDS: PANTOPRAZOLE 40 MG TABLET PO SCH ×2 (05:47→15:54)
[2020-02-17] MEDS: HYDROCORTISONE 10 MG TAB PO SCH ×3 (06:13→20:39)
[2020-02-17] MEDS: ONDANSETRON 4 MG/2 ML VIAL IVP PRN (06:13)
[2020-02-17 06:23] LABS: Glucose,Whole Blood 261 mg/dL (75-99)
[2020-02-17] MEDS ORDERED: METOCLOPRAMIDE 5 MG TAB PO PRN (08:35)
[2020-02-17] MEDS ORDERED: METOCLOPRAMIDE 5 MG TAB PO SCH (09:00)
[2020-02-17] MEDS ORDERED: NON FORMULARY DRUG (Potassium [Potassium] 99 MG) PO SCH (09:00)
[2020-02-17] MEDS: FERROUS SULFATE 325 MG TAB PO SCH (09:09)
[2020-02-17] MEDS: MULTIVITAMINS, THERA LIQUID 237 ML BOTTLE PO SCH (09:09)
[2020-02-17] MEDS: FAMOTIDINE 20 MG/2 ML VIAL IV SCH (09:10)
[2020-02-17] MEDS: HEPARIN SODIUM,PORCINE 5,000 UNIT/ML 1 ML VIAL SQ SCH ×2 (09:10→20:39)
[2020-02-17 09:17] LABS: African American GFR (CKD) >90 (>60 ml/min/1.73 sqM); Anion Gap 6 mmol/L; Blood Urea Nitrogen 13 mg/dL (7-17); Calcium 8.3 mg/dL (8.4-10.2); Carbon Dioxide 27 mmol/L (22-30); Chloride 99 mmol/L (98-107); Glucose 243 mg/dL (74-99); Magnesium 1.5 mg/dL (1.6-2.3); Non-African American GFR(CKD) >90 (>60 ml/min/1.73 sqM); Potassium 4.5 mmol/L (3.5-5.1); Sodium 132 mmol/L (137-145)
[2020-02-17] MEDS: VENLAFAXINE HCL ER 75 MG CAP PO SCH (09:45)
[2020-02-17] MEDS: MAGNESIUM OXIDE 400 MG TAB PO SCH (09:45)
[2020-02-17] MEDS: CLOPIDOGREL 75 MG TAB PO SCH (09:46)
[2020-02-17] MEDS: SPIRONOLACTONE 25 MG TAB PO SCH (09:46)
[2020-02-17] MEDS: ASPIRIN 81 MG PO SCH (09:46)
[2020-02-17 10:15] LABS: Basophils % (A) 0 %; Eosinophils # (A) 0.2 k/uL (0-0.7); Eosinophils % (A) 3 %; HCT 39.5 % (34.0-46.0); HGB 13.1 gm/dL (11.4-16.0); Lymphocytes # (A) 1.7 k/uL (1.0-4.8); Lymphocytes % (A) 22 %; MCH 28.9 pg (25.0-35.0); MCHC 33.1 g/dL (31.0-37.0); MCV 87.4 fL (80.0-100.0); Mean Platelet Volume 8.6; Monocytes # (A) 0.9 k/uL (0-1.0); Monocytes % (A) 12 %; Neutrophils # (A) 4.7 k/uL (1.3-7.7); Neutrophils % (A) 62 %; Platelet Count 223 k/uL (150-450); RBC 4.51 m/uL (3.80-5.40); RDW 13.7 % (11.5-15.5); WBC 7.7 k/uL (3.8-10.6)
--- NOTE | 2020-02-17 10:22 | P.CRDCN ---
History of Present Illness Consult date: 02/17/20 History of present illness: CHIEF COMPLAINT: Chest pain, nausea vomiting HISTORY OF PRESENT ILLNESS: 69-year-old female with a history of hypertension, diabetes mellitus, hyperlipidemia, and CAD who presented to the emergency room with a chief complaint of nausea, vomiting, and chest pain. Patient follows up outpatient in the office with Dr. Rosenberg. Patient underwent a cardiac cath in 2019 revealing 60% lesion of the proximal LAD. Patient states she has been having nausea and vomiting over the past couple days. She also reports some epigastric chest pain yesterday. The patient has not had any vomiting this morning but she still feels nauseous. No chest pain at the time of examination. No shortness of breath. DIAGNOSTICS: EKG reveals sinus rhythm. Heart rate 89. Chest xray negative for acute process. Laboratory data: WBC 8.5. Hemoglobin 13.6. Platelet count 266. Sodium 132. Potassium 4.5. BUN 13. Creatinine 0.45. Glucose 243. Magnesium 1.5. BNP 517. Troponin negative 3. Current home cardiac medications include lisinopril 30 mg daily, Aldactone 50 mg daily, Toprol-XL 50 mg daily, Plavix 75 mg daily, Lipitor 40 mg daily, and aspirin 81 mg daily Echo from January 2020 reveals ejection fraction between 60 and 65%, mild aortic regurgitation, mild aortic stenosis, mild mitral regurgitation, mild tricuspid regurgitation, and mild pulmonary hypertension. REVIEW OF SYSTEMS: CONSTITUTIONAL: Denies fever or chills. HEENT: Denies blurred vision, vision changes, or eye pain. Denies hemoptysis CARDIOVASCULAR: Reports chest pain yesterday. Denies orthopnea, PND or palpitations RESPIRATORY: No shortness of breath. GASTROINTESTINAL: Denies abdominal pain. Reports nausea or vomiting. HEMATOLOGIC: Denies bleeding disorders. GENITOURINARY: Denies any blood in urine. SKIN: Denies pruitis. Denies rash. PHYSICAL EXAM: VITAL SIGNS: Reviewed. GENERAL: Well-developed in no acute distress. HEENT: Head is normocephalic. Pupils are equal, round. Sclerae anicteric. Mucous membranes of the mouth are moist. Neck supple. No JVD or thyromegaly LUNGS: Respirations even and unlabored. Lungs essentially clear to auscultation bilaterally. HEART: Regular rate and rhythm. S1 and S2 heard. ABDOMEN: Soft. Nondistended. Nontender. EXTREMITIES: Normal range of motion. No clubbing or cyanosis. Peripheral pulses intact. No lower extremity edema NEUROLOGIC: Awake and alert. Oriented x 3. ASSESSMENT: 1. Nausea and vomiting, suspect secondary to gastroparesis 2. Atypical chest pain, acute coronary syndrome ruled out, troponin negative x 3 3. History of coronary artery disease with previous catheterization in 2019 revealing 60% lesion of proximal LAD 4. Hypertension 5. Hyperlipidemia 6. Diabetes mellitus, type II 7. Obesity, BMI 32.4 8. Hypomagnesemia PLAN: -Resume home cardiac medications -Continue Zofran when necessary -Resume home dose of Reglan -Suspect nausea and vomiting secondary to gastroparesis -If patients nausea and vomiting resolves, she may be discharged home from a cardiac standpoint and follow up with Dr. Rosenberg for further evaluation including outpatient stress test. Nurse practitioner note has been reviewed by physician. Signing provider agrees with the documented findings, assessment, and plan of care. Past Medical History Past Medical History: Diabetes Mellitus, Deep Vein Thrombosis (DVT), Fibromyalgia, Hyperlipidemia, Hypertension, Osteoarthritis (OA), Pneumonia, Renal Disease, Sleep Apnea/CPAP/BIPAP, Vascular Disorder Additional Past Medical History / Comment(s): Pt recently admitted to [facility] on 11/28/19 with recurerent UTI. 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, DVT R calf in 1976, cardiac murmur, occipital neuraligia, balance issues-has narrowing of vessels "in the back of my head", vertigo, varicosities, states rt shoulder torn rotator cuff History of Any Multi-Drug Resistant Organisms: ESBL, MRSA, VRE Date of last positivie culture/infection: 11/09/19 ESBL; 03/10/11 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 MDRO Source:: ESBL URINE; MRSA 4th rt TOE VRE URINE Past Surgical History: Appendectomy, Back Surgery, Bladder Surgery, Breast Surgery, Cholecystectomy, Heart Catheterization, Hysterectomy, Orthopedic Surgery, Tonsillectomy Additional Past Surgical History / Comment(s): Lumbar fusions, bladder suspension, occipital nerve blocks, 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, R wrist/elbow nerve repair, bone removed R shoulder, 4th toe R foot partial amputation, bilateral feet/bunionectomies, R knee arthroscopies, R orbit d ecompression with ethmoidectomy and eyelid lift, EGD, colonoscopies, cystocopies, lithotripsy/stents, bilateral breast reduction, bilateral cataract removals, parathyroid surgery - April 2019, pain clinic procedures Past Anesthesia/Blood Transfusion Reactions: No Reported Reaction Additional Past Anesthesia/Blood Transfusion Reaction / Comment(s): never recieved blood Past Psychological History: Depression Additional Psychological History / Comment(s): Pt resides with her spouse. She uses a walker. She normally drives. She has a nebulizer, cpap, bsc, shower chair, bp machine, dexcom monitor system for her bs. Smoking Status: Never smoker Past Alcohol Use History: None Reported Additional Past Alcohol Use History / Comment(s): no alcohol Past Drug Use History: None Reported - Past Family History Father Family Medical History: Coronary Artery Disease (CAD), CVA/TIA, Diabetes Mellitus, Myocardial Infarction ([place]), Pneumonia Additional Family Medical History / Comment(s): Father at the age of 78yrs from [place] and pneumonia. Mother Family Medical History: Cancer Additional Family Medical History / Comment(s): Mother had uterine cancer. She recently at the age of 96yrs old from [place]12. Medications and Allergies Home Medications Medication Instructions Recorded Confirmed Type Cholecalciferol [Vitamin D3 (25 3,000 unit PO DAILY@0700 12/01/14 02/16/20 History Mcg = 1000 Iu)] Metoprolol Succinate (ER) [Toprol 50 mg PO HS 07/06/17 02/16/20 History XL] Meclizine [Antivert] 25 mg PO QID PRN 11/26/17 02/16/20 History Hydrocortisone [Cortef] 15 mg PO AC-BRKFST 05/18/18 02/16/20 History Hydrocortisone [Cortef] 5 mg PO HS 06/26/18 02/16/20 History Aspirin 81 mg PO DAILY #0 07/02/18 02/16/20 Rx Glucagon Emergency Kit 1 mg IM ONCE PRN 08/12/18 02/16/20 History Cranberry 300mg 300 mg PO BID 10/08/18 02/16/20 History Ferrous Sulfate [Iron (65 MG 325 mg PO DAILY 10/08/18 02/16/20 History Elemental)] Folic Acid 0.4 mg PO DAILY 10/08/18 02/16/20 History L.acidoph,Paracasei, B.lactis 2 cap PO BID 10/08/18 02/16/20 History [Probiotic] Melatonin 5 mg PO HS PRN 10/08/18 02/16/20 History Multivitamins, Thera Liquid 30 ml PO DAILY 10/08/18 02/16/20 History [Theragran Liquid (formulary)] Potassium 99 mg PO DAILY 10/08/18 02/16/20 History Thiamine [Vitamin B-1] 100 mg PO DAILY 10/08/18 02/16/20 History Vitamin B-Complex Drops 1 ml PO BID 10/08/18 02/16/20 History Atorvastatin [Lipitor] 40 mg PO HS #30 tab 11/16/18 02/16/20 Rx Pantoprazole [Protonix] 40 mg PO BID 01/29/19 02/16/20 History Hydrocortisone [Cortef] 10 mg PO AC-LUNCH 08/30/19 02/16/20 History Venlafaxine HCl [Effexor XR] 75 mg PO DAILY 11/08/19 02/16/20 History Acetaminophen Tab [Tylenol] 1,000 mg PO Q6HR PRN 12/06/19 02/16/20 History Butalb/APAP/Caff 50-325-40Mg 1 tab PO QID PRN 12/06/19 02/16/20 History [Fioricet 50-325-40] Clopidogrel [Plavix] 75 mg PO DAILY 12/06/19 02/16/20 History Magnesium Oxide [Mag-Ox] 400 mg PO DAILY 12/06/19 02/16/20 History Ondansetron HCl [Zofran] 4 mg PO Q6H PRN 12/06/19 02/16/20 History Promethazine 6.25MG/5Ml [Phenergan 6.25 mg PO Q6H PRN 12/06/19 02/16/20 History Syrup] Insulin Aspart [NovoLOG Flexpen] See Protocol SQ AC-TID 12/30/19 02/16/20 History Spironolactone [Aldactone] 50 mg PO DAILY 12/30/19 02/16/20 History HYDROcodone/APAP 10-325MG [[place] 1 tab PO Q8H PRN #0 01/06/20 02/16/20 Rx 10-325] Insulin Glargine,Hum.rec.anlog 20 unit SQ HS@2200 #0 01/06/20 02/16/20 Rx [Lantus Solostar] lisinopriL [Zestril] 30 mg PO W/BRKFST #45 tab 01/06/20 02/16/20 Rx Estrogens, Conjugated Cream 1 applicator VAGINAL WESA 02/16/20 02/16/20 History [Premarin Cream] Metoclopramide [Reglan] 5 mg PO TID PRN 02/16/20 02/16/20 History Allergies Allergy/AdvReac Type Severity Reaction Status Date / Time butorphanol tartrate Allergy BLISTERS Verified 02/16/20 10:39 [From Stadol] IN MOUTH ceftriaxone [From Rocephin] Allergy Unknown Verified 02/16/20 10:39 clarithromycin [From Biaxin] Allergy Rash/Hives Verified 02/16/20 10:39 codeine Allergy Rash/Hives Verified 02/16/20 10:39 ergotamine tartrate Allergy Unknown Verified 02/16/20 10:39 [From Cafergot] erythromycin base Allergy RASH, GI Verified 02/16/20 10:39 [From E-Mycin] SYMPTOMS ketorolac tromethamine Allergy Rash/Hives Verified 02/16/20 10:39 [From Toradol] liraglutide [From Victoza] Allergy Rash/Hives Verified 02/16/20 10:39 morphine Allergy Rash/Hives Verified 02/16/20 10:39 Penicillins Allergy Rash/Hives Verified 02/16/20 10:39 pentazocine lactate Allergy SEVERE Verified 02/16/20 10:39 [From Talwin] BLISTERS IN MOUTH pregabalin [From Lyrica] Allergy Rash/Hives Verified 02/16/20 10:39 propoxyphene HCl Allergy Rash/Hives Verified 02/16/20 10:39 [From Darvon] Sulfa (Sulfonamide Allergy Rash/Hives Verified 02/16/20 10:39 Antibiotics) tramadol Allergy Unknown Verified 02/16/20 10:39 monosodium glutamate [MSG] AdvReac Nausea & Verified 02/16/20 10:39 Vomiting nalbuphine HCl [From Nubain] AdvReac Nausea & Verified 02/16/20 10:39 Vomiting Physical Exam Vitals: Vital Signs Temp Pulse Pulse Resp BP BP Pulse Ox 02/17/20 04:10 97.8 F 72 16 160/70 98 02/16/20 23:33 98.2 F 86 16 162/74 99 02/16/20 21:10 98.0 F 80 16 172/76 97 02/16/20 15:50 99.2 F 79 16 147/67 98 02/16/20 11:01 98.2 F 65 16 174/80 97 02/16/20 10:22 98.1 F 67 18 164/76 97 02/16/20 09:31 85 18 171/98 98 Intake and Output 02/16/20 02/17/20 02/17/20 22:59 06:59 14:59 Intake Total 0 825 Output Total 200 190 Balance -200 635 Intake: Intake, IV Titration 825 Amount Dextrose 5%-0.9% NaCl 1, 825 000 ml @ 75 mls/hr IV . [id number] [facility] Rx#:[id number] Oral 0 Output: Urine 200 190 Other: Voiding Method Bedpan Diaper # Voids 3 1 Results 02/16/20 09:08 02/17/20 06:35 Cardiac Enzymes 02/16/20 02/16/20 02/16/20 Range/Units 09:08 09:08 11:14 AST 26 (14-36) U/L Troponin I <0.012 <0.012 (0.000-0.034) ng/mL 02/16/20 Range/Units 14:34 AST (14-36) U/L Troponin I <0.012 (0.000-0.034) ng/mL Coagulation 02/16/20 Range/Units 09:08 PT 9.4 (9.0-12.0) sec APTT 17.9 L (22.0-30.0) sec Comprehensive Metabolic Panel 02/16/20 Range/Units 09:08 Sodium 133 L (137-145) mmol/L Potassium 4.2 (3.5-5.1) mmol/L Chloride 97 L (98-107) mmol/L Carbon Dioxide 23 (22-30) mmol/L BUN 19 H (7-17) mg/dL Creatinine 0.63 (0.52-1.04) mg/dL Glucose 223 H (74-99) mg/dL Calcium 10.2 (8.4-10.2) mg/dL AST 26 (14-36) U/L ALT 17 (4-34) U/L Alkaline Phosphatase 69 (38-126) U/L Total Protein 6.4 (6.3-8.2) g/dL Albumin 4.1 (3.5-5.0) g/dL Current Medications Generic Name Dose Route Start Last Admin Trade Name Freq PRN Reason Stop Dose Admin Acetaminophen 1,000 mg 02/16/20 10:03 Tylenol Tab PO Q6HR PRN Migraine Headache Aspirin 81 mg 02/17/20 09:00 Aspirin PO DAILY [facility] Atorvastatin Calcium 40 mg 02/16/20 21:00 02/16/20 21:31 Lipitor PO Not Given HS [facility] Clopidogrel Bisulfate 75 mg 02/17/20 09:00 Plavix PO DAILY [facility] Famotidine 20 mg 02/16/20 21:00 02/17/20 09:10 Pepcid IV 20 mg Q12HR [facility] Administration Ferrous Sulfate 325 mg 02/17/20 09:00 02/17/20 09:09 Feosol PO Not Given DAILY [facility] Heparin Sodium (Porcine) 5,000 unit 02/16/20 21:00 02/17/20 09:10 Heparin SQ 5,000 unit Q12HR [facility] Administration Hydrocortisone 10 mg 02/16/20 12:30 02/16/20 14:10 Cortef PO 10 mg AC-LUNCH [facility] Administration Hydrocortisone 15 mg 02/17/20 07:30 02/17/20 06:13 Cortef PO 15 mg AC-BRKFST [facility] Administration Hydrocortisone 5 mg 02/16/20 21:00 02/16/20 20:38 Cortef PO 5 mg HS [facility] Administration Hydromorphone HCl 0.5 mg 02/16/20 10:01 02/17/20 09:15 Dilaudid IVP 0.5 mg Q3HR PRN Administration Moderate Pain Dextrose/Sodium Chloride 1,000 mls @ 75 mls/hr 02/16/20 12:00 02/17/20 01:37 Dextrose 5%-Ns Iv Soln IV 02/17/20 12:01 75 mls/hr .[id number] [facility] Administration Insulin Detemir 20 unit 02/16/20 22:00 02/16/20 20:38 Levemir SQ 20 unit HS@2200 [facility] Administration Iron/Minerals/Multivitamins 30 ml 02/17/20 09:00 02/17/20 09:09 Theragran Liquid PO Not Given DAILY [facility] Lisinopril 30 mg 02/17/20 07:30 02/17/20 05:46 Zestril PO 30 mg W/BRKFST [facility] Administration Magnesium Oxide 400 mg 02/17/20 09:00 Mag-Ox PO DAILY [facility] Meclizine HCl 25 mg 02/16/20 10:03 02/16/20 18:27 Antivert PO 25 mg QID PRN Administration Vertigo Melatonin 5 mg 02/16/20 10:03 Melatonin PO HS PRN Insomnia Metoclopramide HCl 5 mg 02/17/20 09:00 02/17/20 09:09 Reglan PO 5 mg TID [facility] Administration Metoprolol Succinate 50 mg 02/16/20 21:00 02/16/20 20:38 Toprol Xl PO 50 mg HS [facility] Administration Miscellaneous Information 1 each 02/16/20 12:01 Magnesium Per Protocol MISCELLANE DAILY PRN Per Protocol Protocol Naloxone HCl 0.2 mg 02/16/20 10:01 Narcan IV Q2M PRN Opioid Reversal Ondansetron HCl 4 mg 02/16/20 20:58 02/17/20 06:13 Zofran IVP 4 mg Q6HR PRN Administration Nausea And Vomiting Ondansetron HCl 4 mg 02/17/20 08:35 Zofran PO Q6H PRN Nausea And Vomiting Pantoprazole Sodium 40 mg 02/16/20 17:30 02/17/20 05:47 Protonix PO 40 mg AC-BID [facility] Administration Promethazine HCl 6.25 mg 02/16/20 10:03 Phenergan Syrup PO Q6H PRN Cough Spironolactone 50 mg 02/17/20 09:00 Aldactone PO DAILY [facility] Venlafaxine HCl 75 mg 02/17/20 09:00 Effexor Xr PO DAILY [facility] Intake and Output 02/16/20 02/17/20 02/17/20 22:59 06:59 14:59 Intake Total 0 825 Output Total 200 190 Balance -200 635 Intake: Intake, IV Titration 825 Amount Dextrose 5%-0.9% NaCl 1, 825 000 ml @ 75 mls/hr IV . [id number] [facility] Rx#:[id number] Oral 0 Output: Urine 200 190 Other: Voiding Method Bedpan Diaper # Voids 3 1 02/16/20 09:08 02/16/20 09:08
[2020-02-17 11:48] LABS: Glucose,Whole Blood 252 mg/dL (75-99)
[2020-02-17] MEDS: INSULIN ASPART (NovoLOG) 100 UNIT/ML VIAL SQ SCH ×6 (12:27→20:41)
[2020-02-17] MEDS: SODIUM CHLORIDE 0.9% 1,000 ML IV SCH (12:27)
[2020-02-17] MEDS: FOLIC ACID 1 MG TAB PO SCH (12:27)
[2020-02-17] MEDS: METOCLOPRAMIDE 5 MG TAB PO SCH ×2 (12:27→15:54)
[2020-02-17] MEDS ORDERED: INSULIN ASPART (NovoLOG) 100 UNIT/ML VIAL SQ SCH (12:30)
[2020-02-17] MEDS: ONDANSETRON 4 MG TAB PO PRN ×2 (12:37→18:57)
[2020-02-17] MEDS: HYDROcodone/APAP 10-325MG 1 EACH TAB PO PRN ×2 (12:37→20:39)
[2020-02-17] MEDS: CHOLESTYRAMINE (WITH SUGAR) 4 GM PACKET PO SCH ×2 (15:54→18:57)
--- NOTE | 2020-02-17 15:59 | P.PN ---
Subjective Progress Note Date: 02/17/20 This is a 69-year-old female with past medical history of recurrent UTIs growing ESBL E. coli and, intractable migraines, vertebral artery stenosis, diabetes mellitus, adrenal insufficiency, hypertension and multiple other medical issues presented to the ER with complaints of chest pain, nausea vomiting. This morning, continues to have chest pain, describes as throbbing pressure of left chest, nonradiating. Troponins negative 3. Reports last bowel movement yesterday. Positive mild nausea, no emesis, no diarrhea. No abdominal pain. Telemetry sinus rhythm. Evaluated by cardiology, recommending further outpatient workup. Objective - Vital Signs Vital signs: Vital Signs Temp 98.4 F 02/17/20 08:00 Pulse 61 02/17/20 12:00 Resp 20 02/17/20 12:00 BP 173/87 02/17/20 12:00 Pulse Ox 95 02/17/20 12:00 Intake & Output 02/16/20 02/17/20 02/17/20 18:59 06:59 18:59 Intake Total 0 825 Output Total 390 Balance 0 435 Weight 75.16 kg Intake: Intake, IV Titration 825 Amount Dextrose 5%-0.9% NaCl 1, 825 000 ml @ 75 mls/hr IV . [id number] [facility] Rx#:[id number] Oral 0 Output: Urine 390 Other: Voiding Method Bedpan Diaper # Voids 3 1 2 - Exam General: well nourished, well developed, NAD. Vitals reviewed Eyes: PERRL, EOMI, conjunctiva normal HENT: normocephalic, mucus membranes dry Neck: supple, no JVD Lungs: normal respiratory effort, no wheezes or rales CV: Regular rate and rhythm, no murmur. Peripheral pulses 2+ Abdomen: soft, nondistended, no organomegaly. Nontender, positive bowel sounds Skin: warm and dry. Neuro: A&Ox3, normal mood and affect - Labs CBC & Chem 7: 02/17/20 09:33 02/17/20 06:35 Labs: Abnormal Lab Results - Last 24 Hours (Table) 02/16/20 02/16/20 02/17/20 Range/Units 16:44 20:07 06:22 Sodium (137-145) mmol/L Creatinine (0.52-1.04) mg/dL Glucose (74-99) mg/dL POC Glucose (mg/dL) 283 H 339 H 261 H (75-99) mg/dL Calcium (8.4-10.2) mg/dL Magnesium (1.6-2.3) mg/dL 02/17/20 02/17/20 Range/Units 06:35 11:47 Sodium 132 L (137-145) mmol/L Creatinine 0.45 L (0.52-1.04) mg/dL Glucose 243 H (74-99) mg/dL POC Glucose (mg/dL) 252 H (75-99) mg/dL Calcium 8.3 L (8.4-10.2) mg/dL Magnesium 1.5 L (1.6-2.3) mg/dL Assessment and Plan Assessment: Acute chest pain accompanied by nausea and vomiting. Troponin is negative 3, possibly musculoskeletal in nature. No abdominal pain. Dehydration secondary to the above Hypomagnesemia Adrenal insufficiency on Cortef Diabetes mellitus type 2 History of recurrent UTIs with ESBL, E. coli Migraine and occipital neuralgia Arthritis Fibromyalgia Hypertension CAD Obesity, BMI 32.4 Sleep apnea on CPAP/BiPAP Plan: Continue on current medication regime ,monitoring and symptomatic treatment. Maintain scheduled Reglan, Zofran ,Questran, home medication, resumed. Maintain gentle IV fluid hydration. Cardiology has cleared, recommending follow-up with potential outpatient stress test. UA with micro ordered. Dilaudid discontinued, causes her intractable migraines. Discharge planning in progress for tomorrow. The impression and plan of care has been dictated as directed. : I performed a history and examination of this patient, discussed the same with the dictator. I agree with the dictator's note ,documented as a scribe. Any additional findings or plans will be noted.
[2020-02-17] MEDS ORDERED: Magnesium Replacement Protocol 1 EACH MISC MISCELLANE PRN (16:01)
[2020-02-17 16:48] LABS: Glucose,Whole Blood 162 mg/dL (75-99)
[2020-02-17 20:38] LABS: Glucose,Whole Blood 105 mg/dL (75-99)
[2020-02-17] MEDS: METOPROLOL SUCCINATE (ER) 50 MG TAB.ER.24H PO SCH (20:39)
[2020-02-17] MEDS: ATORVASTATIN 40 MG TAB PO SCH (20:39)
[2020-02-17] MEDS: INSULIN DETEMIR (LEVEMIR) 100 UNIT/ML SYR SQ SCH (20:40)
[2020-02-18] MEDS: MAGNESIUM SULFATE-D5W PMX 1 GM in DEXTROSE/WATER 1 100ML.BAG IVPB SCH ×2 (00:08→02:15)
[2020-02-18] MEDS: ONDANSETRON 4 MG TAB PO PRN ×2 (02:14→08:18)
[2020-02-18 02:55] LABS: Appearance,Urine Cloudy (Clear); Bacteria,Urine Rare /hpf; Bilirubin,Urine Negative (Negative); Blood,Urine Negative (Negative); Color,Urine Light Yellow; Glucose,Urine (UA) Negative (Negative); Ketones,Urine 1+ (Negative); Leukocyte Esterase,Urine Large (Negative); Mucus,Urine Rare /hpf; Nitrite,Urine Positive (Negative); PH, Urine 5.5 (5.0-8.0); Protein,Urine Negative (Negative); RBC,Urine 3 /hpf (0-5); Specific Gravity,Urine 1.009 (1.001-1.035); Squamous Epithelial Cell,Urine 2 /hpf (0-4); Urobilinogen,Urine <2.0 mg/dL (<2.0); WBC,Urine 46 /hpf (0-5)
[2020-02-18] MEDS: HYDROcodone/APAP 10-325MG 1 EACH TAB PO PRN ×2 (04:18→16:53)
[2020-02-18] MEDS: HYDROCORTISONE 10 MG TAB PO SCH ×3 (06:21→21:06)
[2020-02-18] MEDS: lisinopriL 10 MG TAB PO SCH (06:21)
[2020-02-18] MEDS: METOCLOPRAMIDE 5 MG TAB PO SCH ×3 (06:21→16:54)
[2020-02-18] MEDS: PANTOPRAZOLE 40 MG TABLET PO SCH ×2 (06:22→16:53)
[2020-02-18 06:24] LABS: Glucose,Whole Blood 158 mg/dL (75-99)
[2020-02-18 07:53] LABS: African American GFR (CKD) >90 (>60 ml/min/1.73 sqM); Anion Gap 5 mmol/L; Blood Urea Nitrogen 9 mg/dL (7-17); Calcium 8.5 mg/dL (8.4-10.2); Carbon Dioxide 28 mmol/L (22-30); Chloride 98 mmol/L (98-107); Glucose 146 mg/dL (74-99); Non-African American GFR(CKD) >90 (>60 ml/min/1.73 sqM); Potassium 3.9 mmol/L (3.5-5.1); Sodium 131 mmol/L (137-145)
[2020-02-18 08:14] LABS: Basophils % (A) 0 %; Eosinophils # (A) 0.2 k/uL (0-0.7); Eosinophils % (A) 2 %; HCT 38.3 % (34.0-46.0); HGB 12.9 gm/dL (11.4-16.0); Lymphocytes # (A) 1.8 k/uL (1.0-4.8); Lymphocytes % (A) 24 %; MCH 29.3 pg (25.0-35.0); MCHC 33.7 g/dL (31.0-37.0); MCV 86.9 fL (80.0-100.0); Mean Platelet Volume 8.9; Monocytes # (A) 0.5 k/uL (0-1.0); Monocytes % (A) 7 %; Neutrophils % (A) 66 %; Platelet Count 202 k/uL (150-450); RBC 4.41 m/uL (3.80-5.40); RDW 13.7 % (11.5-15.5); WBC 7.7 k/uL (3.8-10.6)
[2020-02-18] MEDS: THIAMINE 100 MG TAB PO SCH (08:18)
[2020-02-18] MEDS: CLOPIDOGREL 75 MG TAB PO SCH (08:18)
[2020-02-18] MEDS: ASPIRIN 81 MG PO SCH (08:18)
[2020-02-18] MEDS: VENLAFAXINE HCL ER 75 MG CAP PO SCH (08:18)
[2020-02-18] MEDS: MAGNESIUM OXIDE 400 MG TAB PO SCH (08:18)
[2020-02-18] MEDS: SPIRONOLACTONE 25 MG TAB PO SCH (08:18)
[2020-02-18] MEDS: FERROUS SULFATE 325 MG TAB PO SCH (08:19)
[2020-02-18] MEDS: CHOLESTYRAMINE (WITH SUGAR) 4 GM PACKET PO SCH ×3 (08:19→18:37)
[2020-02-18] MEDS: FOLIC ACID 1 MG TAB PO SCH (08:19)
[2020-02-18] MEDS: HEPARIN SODIUM,PORCINE 5,000 UNIT/ML 1 ML VIAL SQ SCH ×2 (08:19→21:05)
[2020-02-18] MEDS: SODIUM CHLORIDE 0.9% 1,000 ML IV SCH (08:20)
[2020-02-18] MEDS: MULTIVITAMINS, THERA LIQUID 237 ML BOTTLE PO SCH (08:20)
[2020-02-18] MEDS: INSULIN ASPART (NovoLOG) 100 UNIT/ML VIAL SQ SCH ×7 (08:20→21:07)
[2020-02-18] MEDS ORDERED: HYDROcodone/APAP 5-325MG 1 EACH TAB PO STA (09:47)
--- NOTE | 2020-02-18 11:01 | P.PN ---
Subjective Progress Note Date: 02/18/20 This is a 69-year-old female with past medical history of recurrent UTIs growing ESBL E. coli and, intractable migraines, vertebral artery stenosis, diabetes mellitus, adrenal insufficiency, hypertension and multiple other medical issues presented to the ER with complaints of chest pain, nausea vomiting. This morning, continues to have chest pain, describes as throbbing pressure of left chest, nonradiating. Troponins negative 3. Reports last bowel movement yesterday. Positive mild nausea, no emesis, no diarrhea. No abdominal pain. Telemetry sinus rhythm. Evaluated by cardiology, recommending further outpatient workup. 02/18/20 patient initially scheduled for discharge as discussed with patient yesterday. Patient was upset stating she was unable to sleep because we stopped her Dilaudid yesterday,now feels worse and does not want to go home. Reporting all her pain is in right lower back pain/spasms. Discussed with patient ,Dilaudid not recommended at this time as well as the concern for addiction,but instead offered option of muscle relaxant-Flexeril, patient declined, in addition to heating pad as well as PT OT. Encouraged patient to be out of bed and work with physical therapy. Patient continued to ask for Dilaudid. Alternate options reenforced. Patient continued to ask for Dilaudid stating pain is more in bladder.Discussed subacute rehab., patient declined stating she gets really good care at home between her family and the home care. Patient states she has been up all night , going to the bathroom to urinate. Staff reports patient was insistent on using bedpan as she proceeded stating one of the doctors had ordered bed rest. Patient reporting positive nausea, no emesis. Staff reports patient declining meals. Telemetry sinus rhythm, positive chest pain-reproducible. T-max 99, WBC within normal limits. UA reported 46 WBCs and large leukocytes, positive nitrates, 1+ ketones. Sodium 131. Objective - Vital Signs Vital signs: Vital Signs Temp 98.1 F 02/18/20 08:00 Pulse 66 02/18/20 08:00 Resp 20 02/18/20 08:00 BP 158/91 02/18/20 08:00 Pulse Ox 97 02/18/20 08:00 Intake & Output 02/17/20 02/18/20 02/18/20 18:59 06:59 18:59 Intake Total 200 Output Total 600 Balance -400 Weight 64.5 kg Intake: Intake, IV Titration 200 Amount Magnesium Sulfate-D5w Pmx 200 1 gm In Dextrose/Water 1 100ml.bag @ 100 mls/hr IVPB Q1H [facility] Rx#: [id number] Output: Urine 600 Other: # Voids 4 4 - Exam General: well nourished, well developed, lying in bed. Eyes: PERRL, EOMI, conjunctiva normal HENT: normocephalic, mucus membranes moist Neck: supple, no JVD Lungs: normal respiratory effort, no wheezes or rales CV: Regular rate and rhythm, no murmur. Peripheral pulses 2+ Abdomen: soft, nondistended, no organomegaly. Nontender, positive bowel sounds Skin: warm and dry. Neuro: A&Ox3, normal mood and affect. - Labs CBC & Chem 7: 02/18/20 06:12 02/18/20 06:12 Labs: Abnormal Lab Results - Last 24 Hours (Table) 02/17/20 02/17/20 02/17/20 Range/Units 11:47 16:47 20:36 Sodium (137-145) mmol/L Creatinine (0.52-1.04) mg/dL Glucose (74-99) mg/dL POC Glucose (mg/dL) 252 H 162 H 105 H (75-99) mg/dL Urine Appearance (Clear) Urine Ketones (Negative) Urine Nitrite (Negative) Ur Leukocyte Esterase (Negative) Urine WBC (0-5) /hpf Urine Bacteria (None) /hpf Urine Mucus (None) /hpf 02/18/20 02/18/20 02/18/20 Range/Units 01:12 06:12 06:23 Sodium 131 L (137-145) mmol/L Creatinine 0.47 L (0.52-1.04) mg/dL Glucose 146 H (74-99) mg/dL POC Glucose (mg/dL) 158 H (75-99) mg/dL Urine Appearance Cloudy H (Clear) Urine Ketones 1+ H (Negative) Urine Nitrite Positive H (Negative) Ur Leukocyte Esterase Large H (Negative) Urine WBC 46 H (0-5) /hpf Urine Bacteria Rare H (None) /hpf Urine Mucus Rare H (None) /hpf Assessment and Plan Assessment: Acute chest pain accompanied by nausea and vomiting. Troponin is negative 3, possibly musculoskeletal in nature. Dehydration secondary to the above Hypomagnesemia Adrenal insufficiency on Cortef Diabetes mellitus type 2 History of recurrent UTIs with ESBL, E. coli Migraine and occipital neuralgia Arthritis Fibromyalgia Hypertension CAD Obesity, BMI 32.4 Sleep apnea on CPAP/BiPAP Plan: Continue on current medication regime ,monitoring and symptomatic treatment. Hold discharge. Social work consulted regarding numerous admissions. PT/OT consulted. Patient to receive an additional Fulda 5 mg this morning prior to working with physical therapy .Patient had previously been on Macrobid at home, reinitiate empiric Macrobid 100 mg twice a day .repeat UA tonight. Discharge planning in progress for tomorrow. The impression and plan of care has been dictated as directed. : I performed a history and examination of this patient, discussed the same with the dictator. I agree with the dictator's note ,documented as a scribe. Any additional findings or plans will be noted.
[2020-02-18 11:18] LABS: Glucose,Whole Blood 216 mg/dL (75-99)
[2020-02-18] MEDS: NITROFURANTOIN MONOHYD/M-CRYST 100 MG CAP PO SCH ×2 (11:29→21:06)
--- NOTE | 2020-02-18 12:59 | P.PN ---
Subjective Progress Note Date: 02/18/20 CHIEF COMPLAINT: Chest pain, nausea vomiting HISTORY OF PRESENT ILLNESS: Patient examined this morning at the bedside. She states her nausea is worse than yesterday but denies any further vomiting. She reports being up all night urinating. She reports minimal chest discomfort this morning. Blood pressure 158/91 this morning. Heart rate in the 60s. PHYSICAL EXAM: VITAL SIGNS: Reviewed. GENERAL: Well-developed in no acute distress. HEENT: Head is normocephalic. Pupils are equal, round. Sclerae anicteric. Mucous membranes of the mouth are moist. Neck supple. No JVD or thyromegaly LUNGS: Respirations even and unlabored. Lungs essentially clear to auscultation bilaterally. HEART: Regular rate and rhythm. S1 and S2 heard. EXTREMITIES: Normal range of motion. No clubbing or cyanosis. Peripheral pulses intact. No lower extremity edema NEUROLOGIC: Awake and alert. Oriented x 3. ASSESSMENT: 1. Nausea and vomiting, suspect secondary to gastroparesis 2. Atypical chest pain, acute coronary syndrome ruled out, troponin negative x 3 3. History of coronary artery disease with previous catheterization in 2019 revealing 60% lesion of proximal LAD 4. Hypertension 5. Hyperlipidemia 6. Diabetes mellitus, type II 7. Obesity, BMI 32.4 8. Hypomagnesemia PLAN: -Treatment and management of nausea and vomiting per internal medicine -She may be discharged home from a cardiac standpoint and follow up with Dr. Rosenberg for further evaluation including outpatient stress test. Nurse practitioner note has been reviewed by physician. Signing provider agrees with the documented findings, assessment, and plan of care. Objective - Vital Signs Vital signs: Vital Signs Temp 98.1 F 02/18/20 08:00 Pulse 66 02/18/20 08:00 Resp 20 02/18/20 08:00 BP 158/91 02/18/20 08:00 Pulse Ox 97 02/18/20 08:00 Intake & Output 02/17/20 02/18/20 02/18/20 18:59 06:59 18:59 Intake Total 200 Output Total 600 Balance -400 Weight 64.5 kg Intake: Intake, IV Titration 200 Amount Magnesium Sulfate-D5w Pmx 200 1 gm In Dextrose/Water 1 100ml.bag @ 100 mls/hr IVPB Q1H [facility] Rx#: [id number] Output: Urine 600 Other: # Voids 4 4 - Labs CBC & Chem 7: 02/18/20 06:12 02/18/20 06:12 Labs: Abnormal Lab Results - Last 24 Hours (Table) 02/17/20 02/17/20 02/17/20 Range/Units 11:47 16:47 20:36 Sodium (137-145) mmol/L Creatinine (0.52-1.04) mg/dL Glucose (74-99) mg/dL POC Glucose (mg/dL) 252 H 162 H 105 H (75-99) mg/dL Urine Appearance (Clear) Urine Ketones (Negative) Urine Nitrite (Negative) Ur Leukocyte Esterase (Negative) Urine WBC (0-5) /hpf Urine Bacteria (None) /hpf Urine Mucus (None) /hpf 02/18/20 02/18/20 02/18/20 Range/Units 01:12 06:12 06:23 Sodium 131 L (137-145) mmol/L Creatinine 0.47 L (0.52-1.04) mg/dL Glucose 146 H (74-99) mg/dL POC Glucose (mg/dL) 158 H (75-99) mg/dL Urine Appearance Cloudy H (Clear) Urine Ketones 1+ H (Negative) Urine Nitrite Positive H (Negative) Ur Leukocyte Esterase Large H (Negative) Urine WBC 46 H (0-5) /hpf Urine Bacteria Rare H (None) /hpf Urine Mucus Rare H (None) /hpf Microbiology - Last 24 Hours (Table) 02/18/20 01:12 Urine Culture - Preliminary Urine,Clean Catch
[2020-02-18 16:26] LABS: Hemoglobin A1C 8.1 % (4.0-6.0)
[2020-02-18 17:02] LABS: Glucose,Whole Blood 138 mg/dL (75-99)
--- NOTE | 2020-02-18 17:23 | XR ---
EXAMINATION TYPE: XR ankle complete LT DATE OF EXAM: 02/18/2020 COMPARISON: NONE HISTORY: Fall. Ankle pain TECHNIQUE: 3 views FINDINGS: There is vascular calcification. Ankle mortise is anatomic. Joint spaces are fairly normal. There is no evidence of a fracture. IMPRESSION: No acute abnormality of the left ankle.
--- NOTE | 2020-02-18 17:25 | XR ---
EXAMINATION TYPE: XR chest 2V DATE OF EXAM: 02/18/2020 COMPARISON: 02/16/2020 HISTORY: Chest pain TECHNIQUE: 2 views FINDINGS: There is no heart failure nor confluent pneumonic infiltrate. Thoracic aorta is atheromatou s. Costophrenic angles are clear. There are chest leads. IMPRESSION: No active cardiopulmonary disease. Atheromatous aorta. No change.
[2020-02-18 20:13] LABS: Glucose,Whole Blood 259 mg/dL (75-99)
[2020-02-18] MEDS: ACETAMINOPHEN TAB 500 MG TAB PO PRN (20:21)
[2020-02-18 20:29] LABS: Appearance,Urine Cloudy (Clear); Bacteria,Urine Few /hpf; Bilirubin,Urine Negative (Negative); Blood,Urine Trace (Negative); Color,Urine Yellow; Glucose,Urine (UA) 3+ (Negative); Hyaline Casts,Urine 4 /lpf (0-2); Ketones,Urine Trace (Negative); Leukocyte Esterase,Urine Large (Negative); Mucus,Urine Rare /hpf; Nitrite,Urine Negative (Negative); PH, Urine 5.5 (5.0-8.0); Protein,Urine Trace (Negative); RBC,Urine 3 /hpf (0-5); Specific Gravity,Urine 1.017 (1.001-1.035); Squamous Epithelial Cell,Urine 5 /hpf (0-4); Urobilinogen,Urine <2.0 mg/dL (<2.0); WBC,Urine >182 /hpf (0-5)
[2020-02-18] MEDS: ATORVASTATIN 40 MG TAB PO SCH (21:05)
[2020-02-18] MEDS: INSULIN DETEMIR (LEVEMIR) 100 UNIT/ML SYR SQ SCH (21:06)
[2020-02-18] MEDS: METOPROLOL SUCCINATE (ER) 50 MG TAB.ER.24H PO SCH (21:06)
[2020-02-18] MEDS: ONDANSETRON 4 MG/2 ML VIAL IVP PRN (21:07)
[2020-02-19] MEDS: SODIUM CHLORIDE 0.9% 1,000 ML IV SCH (02:50)
[2020-02-19] MEDS: HYDROmorphone 0.5 MG/0.5 ML SYRINGE IVP PRN ×2 (02:50→09:04)
[2020-02-19 03:38] VITALS: TEMP 98.3
[2020-02-19] MEDS: ONDANSETRON 4 MG/2 ML VIAL IVP PRN ×2 (05:04→12:25)
[2020-02-19] MEDS: lisinopriL 10 MG TAB PO SCH (06:23)
[2020-02-19] MEDS: PANTOPRAZOLE 40 MG TABLET PO SCH (06:23)
[2020-02-19] MEDS: METOCLOPRAMIDE 5 MG TAB PO SCH ×2 (06:23→12:26)
[2020-02-19] MEDS: HYDROCORTISONE 10 MG TAB PO SCH ×2 (06:24→12:25)
[2020-02-19] MEDS: ACETAMINOPHEN TAB 500 MG TAB PO PRN (06:27)
[2020-02-19 07:00] LABS: Glucose,Whole Blood 157 mg/dL (75-99)
[2020-02-19 07:06] LABS: African American GFR (CKD) >90 (>60 ml/min/1.73 sqM); Anion Gap 7 mmol/L; Blood Urea Nitrogen 10 mg/dL (7-17); Calcium 8.1 mg/dL (8.4-10.2); Carbon Dioxide 26 mmol/L (22-30); Chloride 96 mmol/L (98-107); Glucose 149 mg/dL (74-99); Non-African American GFR(CKD) >90 (>60 ml/min/1.73 sqM); Potassium 3.8 mmol/L (3.5-5.1); Sodium 129 mmol/L (137-145)
[2020-02-19] MEDS: INSULIN ASPART (NovoLOG) 100 UNIT/ML VIAL SQ SCH ×6 (07:06→12:28)
[2020-02-19] MEDS: CHOLESTYRAMINE (WITH SUGAR) 4 GM PACKET PO SCH ×2 (09:05→09:11)
[2020-02-19] MEDS: ASPIRIN 81 MG PO SCH (09:05)
[2020-02-19] MEDS: MULTIVITAMINS, THERA LIQUID 237 ML BOTTLE PO SCH ×2 (09:05→09:12)
[2020-02-19] MEDS: VENLAFAXINE HCL ER 75 MG CAP PO SCH (09:06)
[2020-02-19] MEDS: FERROUS SULFATE 325 MG TAB PO SCH (09:06)
[2020-02-19] MEDS: CLOPIDOGREL 75 MG TAB PO SCH (09:06)
[2020-02-19] MEDS: FOLIC ACID 1 MG TAB PO SCH (09:06)
[2020-02-19] MEDS: THIAMINE 100 MG TAB PO SCH (09:06)
[2020-02-19] MEDS: MAGNESIUM OXIDE 400 MG TAB PO SCH (09:06)
[2020-02-19] MEDS: HEPARIN SODIUM,PORCINE 5,000 UNIT/ML 1 ML VIAL SQ SCH (09:06)
[2020-02-19] MEDS: SPIRONOLACTONE 25 MG TAB PO SCH (09:06)
[2020-02-19] MEDS: NITROFURANTOIN MONOHYD/M-CRYST 100 MG CAP PO SCH (09:07)
[2020-02-19 09:14] VITALS: PULSE 63; RESP 16
[2020-02-19 09:24] LABS: HCT 33.7 % (34.0-46.0); HGB 11.2 gm/dL (11.4-16.0); MCHC 33.2 g/dL (31.0-37.0); MCV 87.1 fL (80.0-100.0); Mean Platelet Volume 8.5; Platelet Count 204 k/uL (150-450); RBC 3.86 m/uL (3.80-5.40); RDW 13.8 % (11.5-15.5); WBC 7.9 k/uL (3.8-10.6)
[2020-02-19] MEDS ORDERED: lisinopriL 10 MG TAB PO STA (10:41)
--- NOTE | 2020-02-19 10:44 | P.PN ---
Subjective Progress Note Date: 02/19/20 CHIEF COMPLAINT: Chest pain, nausea vomiting HISTORY OF PRESENT ILLNESS: Patient examined this morning at the bedside. Patient continues to report some nausea. She denies vomiting. Denies chest pain. PHYSICAL EXAM: VITAL SIGNS: Reviewed. GENERAL: Well-developed in no acute distress. HEENT: Head is normocephalic. Pupils are equal, round. Sclerae anicteric. Mucous membranes of the mouth are moist. Neck supple. No JVD or thyromegaly LUNGS: Respirations even and unlabored. Lungs essentially clear to auscultation bilaterally. HEART: Regular rate and rhythm. S1 and S2 heard. EXTREMITIES: Normal range of motion. No clubbing or cyanosis. Peripheral pulses intact. No lower extremity edema NEUROLOGIC: Awake and alert. Oriented x 3. ASSESSMENT: 1. Nausea and vomiting, suspect secondary to gastroparesis 2. Atypical chest pain, acute coronary syndrome ruled out, troponin negative x 3 3. History of coronary artery disease with previous catheterization in 2019 revealing 60% lesion of proximal LAD 4. Hypertension 5. Hyperlipidemia 6. Diabetes mellitus, type II 7. Obesity, BMI 32.4 8. Hypomagnesemia PLAN: -Continue current cardiac medications -She may be discharged home from a cardiac standpoint and follow up with Dr. Rosenberg for further evaluation including outpatient stress test. Nurse practitioner note has been reviewed by physician. Signing provider agrees with the documented findings, assessment, and plan of care. Objective - Vital Signs Vital signs: Vital Signs Temp 98.3 F 02/19/20 08:35 Pulse 63 02/19/20 08:35 Resp 16 02/19/20 08:35 BP 177/82 02/19/20 08:35 Pulse Ox 100 02/19/20 08:35 Intake & Output 02/18/20 02/19/20 02/19/20 18:59 06:59 18:59 Intake Total 360 240 250 Output Total 200 300 300 Balance 160 -60 -50 Weight 64.1 kg Intake: Oral 360 240 250 Output: Urine 200 300 300 Other: # Voids 1 1 - Labs CBC & Chem 7: 02/19/20 06:03 02/19/20 06:03 Labs: Abnormal Lab Results - Last 24 Hours (Table) 02/18/20 02/18/20 02/18/20 Range/Units 06:12 11:16 17:00 Hgb (11.4-16.0) gm/dL Hct (34.0-46.0) % Sodium (137-145) mmol/L Chloride (98-107) mmol/L Creatinine (0.52-1.04) mg/dL Glucose (74-99) mg/dL POC Glucose (mg/dL) 216 H 138 H (75-99) mg/dL Hemoglobin A1c 8.1 H (4.0-6.0) % Calcium (8.4-10.2) mg/dL Urine Appearance (Clear) Urine Protein (Negative) Urine Glucose (UA) (Negative) Urine Ketones (Negative) Urine Blood (Negative) Ur Leukocyte Esterase (Negative) Urine WBC (0-5) /hpf Ur Squamous Epith Cells (0-4) /hpf Urine Bacteria (None) /hpf Hyaline Casts (0-2) /lpf Urine Mucus (None) /hpf 02/18/20 02/18/20 02/19/20 Range/Units 20:00 20:12 06:03 Hgb (11.4-16.0) gm/dL Hct (34.0-46.0) % Sodium 129 L (137-145) mmol/L Chloride 96 L (98-107) mmol/L Creatinine 0.44 L (0.52-1.04) mg/dL Glucose 149 H (74-99) mg/dL POC Glucose (mg/dL) 259 H (75-99) mg/dL Hemoglobin A1c (4.0-6.0) % Calcium 8.1 L (8.4-10.2) mg/dL Urine Appearance Cloudy H (Clear) Urine Protein Trace H (Negative) Urine Glucose (UA) 3+ H (Negative) Urine Ketones Trace H (Negative) Urine Blood Trace H (Negative) Ur Leukocyte Esterase Large H (Negative) Urine WBC >182 H (0-5) /hpf Ur Squamous Epith Cells 5 H (0-4) /hpf Urine Bacteria Few H (None) /hpf Hyaline Casts 4 H (0-2) /lpf Urine Mucus Rare H (None) /hpf 02/19/20 02/19/20 Range/Units 06:03 06:59 Hgb 11.2 L (11.4-16.0) gm/dL Hct 33.7 L (34.0-46.0) % Sodium (137-145) mmol/L Chloride (98-107) mmol/L Creatinine (0.52-1.04) mg/dL Glucose (74-99) mg/dL POC Glucose (mg/dL) 157 H (75-99) mg/dL Hemoglobin A1c (4.0-6.0) % Calcium (8.4-10.2) mg/dL Urine Appearance (Clear) Urine Protein (Negative) Urine Glucose (UA) (Negative) Urine Ketones (Negative) Urine Blood (Negative) Ur Leukocyte Esterase (Negative) Urine WBC (0-5) /hpf Ur Squamous Epith Cells (0-4) /hpf Urine Bacteria (None) /hpf Hyaline Casts (0-2) /lpf Urine Mucus (None) /hpf Microbiology - Last 24 Hours (Table) 02/18/20 01:12 Urine Culture - Preliminary Urine,Clean Catch
--- NOTE | 2020-02-19 10:53 | P.DS ---
Providers Date of admission: 02/16/20 10:01 Expected date of discharge: 02/19/20 Attending physician: Anrdew Gonsales MD Consults: 02/16/20 12:01 Consult Physician Urgent Consulting Provider: Muna Downs Consult Reason/Comments: chest pain Do you want consulting provider notified?: Yes Primary care physician: Andrew Gonsales MD Hospital Course: Final Diagnoses: Acute chest pain accompanied by nausea and vomiting. Troponin is negative 3, possibly musculoskeletal in nature. Dehydration secondary to the above Hyponatremia Hypomagnesemia Adrenal insufficiency on Cortef Diabetes mellitus type 2 History of recurrent UTIs with ESBL, E. coli Migraine and occipital neuralgia, history of Arthritis Fibromyalgia Hypertension CAD Obesity, BMI 32.4 Sleep apnea on CPAP/BiPAP Hospital course:This is a 69-year-old female with past medical history of recurrent UTIs growing ESBL E. coli and, intractable migraines, vertebral artery stenosis, diabetes mellitus, adrenal insufficiency, hypertension and multiple other medical issues presented to the ER with complaints of chest pain, nausea vomiting. This morning, continues to have chest pain, describes as throbbing pressure of left chest, nonradiating. Troponins negative 3. Reports last bowel movement yesterday. Positive mild nausea, no emesis, no diarrhea. No abdominal pain. Telemetry sinus rhythm. Evaluated by cardiology, recommending further outpatient workup. 02/18/20 patient initially scheduled for discharge as discussed with patient yesterday. Patient was upset stating she was unable to sleep because we stopped her Dilaudid yesterday,now feels worse and does not want to go home. Reporting all her pain is in right lower back pain/spasms. Discussed with patient ,Dilaudid not recommended at this time as well as the concern for addiction,but instead offered option of muscle relaxant-Flexeril, patient declined, in addition to heating pad as well as PT OT. Encouraged patient to be out of bed and work with physical therapy. Patient continued to ask for Dilaudid. Alternate options reenforced. Patient continued to ask for Dilaudid stating pain is more in bladder.Discussed subacute rehab., patient declined stating she gets really good care at home between her family and the home care. Patient states she has been up all night , going to the bathroom to urinate. Staff reports patient was insistent on using bedpan as she proceeded stating one of the doctors had ordered bed rest. Patient reporting positive nausea, no emesis. Staff reports patient declining meals. Telemetry sinus rhythm, positive chest pain-reproducible. T-max 99, WBC within normal limits. UA reported 46 WBCs and large leukocytes, positive nitrates, 1+ ketones. Sodium 131. Significant clinical improvement. Zestril increased to 40 mg by mouth daily. Evaluated by physical therapy, home/home care recommended. Cleared by cardiology for discharge. Patient will be discharged home in a stable condition with guarded prognosis. The impression and plan of care has been dictated as directed. : I performed a history and examination of this patient, discussed the same with the dictator. I agree with the dictator's note ,documented as a scribe. Any additional findings or plans will be noted. Patient Condition at Discharge: Stable Plan - Discharge Summary Discharge Rx Participant: No New Discharge Prescriptions: New Nitrofurantoin Monohyd/M-Cryst [Macrobid] 100 mg PO BID #60 cap Cholestyramine (with Sugar) [Questran Packet] 4 gm PO TID BETWEEN MEALS #30 packet Continue Cholecalciferol [Vitamin D3 (25 Mcg = 1000 Iu)] 3,000 unit PO DAILY@0700 Metoprolol Succinate (ER) [Toprol XL] 50 mg PO HS Meclizine [Antivert] 25 mg PO QID PRN PRN Reason: Vertigo Hydrocortisone [Cortef] 15 mg PO AC-BRKFST Hydrocortisone [Cortef] 5 mg PO HS Aspirin 81 mg PO DAILY #0 Glucagon Emergency Kit 1 mg IM ONCE PRN PRN Reason: Hypoglycemia Ferrous Sulfate [Iron (65 MG Elemental)] 325 mg PO DAILY Vitamin B-Complex Drops 1 ml PO BID Thiamine [Vitamin B-1] 100 mg PO DAILY Folic Acid 0.4 mg PO DAILY Multivitamins, Thera Liquid [Theragran Liquid (formulary)] 30 ml PO DAILY L.acidoph,Paracasei, B.lactis [Probiotic] 2 cap PO BID Melatonin 5 mg PO HS PRN PRN Reason: Insomnia Cranberry 300mg 300 mg PO BID Potassium 99 mg PO DAILY Atorvastatin [Lipitor] 40 mg PO HS #30 tab Pantoprazole [Protonix] 40 mg PO BID Hydrocortisone [Cortef] 10 mg PO AC-LUNCH Venlafaxine HCl [Effexor XR] 75 mg PO DAILY Magnesium Oxide [Mag-Ox] 400 mg PO DAILY Promethazine 6.25MG/5Ml [Phenergan Syrup] 6.25 mg PO Q6H PRN PRN Reason: Cough Ondansetron HCl [Zofran] 4 mg PO Q6H PRN PRN Reason: Nausea And Vomiting Acetaminophen Tab [Tylenol] 1,000 mg PO Q6HR PRN PRN Reason: Migraine Headache Butalb/APAP/Caff 50-325-40Mg [Fioricet 50-325-40] 1 tab PO QID PRN PRN Reason: Migraine Headache Clopidogrel [Plavix] 75 mg PO DAILY Insulin Aspart [NovoLOG Flexpen] See Protocol SQ AC-TID Spironolactone [Aldactone] 50 mg PO DAILY HYDROcodone/APAP 10-325MG [[place] 10-325] 1 tab PO Q8H PRN #0 PRN Reason: Pain Insulin Glargine,Hum.rec.anlog [Lantus Solostar] 20 unit SQ HS@2200 #0 Estrogens, Conjugated Cream [Premarin Cream] 1 applicator VAGINAL WESA Metoclopramide [Reglan] 5 mg PO TID PRN #30 tab PRN Reason: Nausea Changed lisinopriL [Zestril] 40 mg PO W/BRKFST #60 tab Discharge Medication List Cholecalciferol [Vitamin D3 (25 Mcg = 1000 Iu)] 3,000 unit PO DAILY@0700 12/01/14 [History] Metoprolol Succinate (ER) [Toprol XL] 50 mg PO HS 07/06/17 [History] Meclizine [Antivert] 25 mg PO QID PRN 11/26/17 [History] Hydrocortisone [Cortef] 15 mg PO AC-BRKFST 05/18/18 [History] Hydrocortisone [Cortef] 5 mg PO HS 06/26/18 [History] Aspirin 81 mg PO DAILY #0 07/02/18 [Rx] Glucagon Emergency Kit 1 mg IM ONCE PRN 08/12/18 [History] Cranberry 300mg 300 mg PO BID 10/08/18 [History] Ferrous Sulfate [Iron (65 MG Elemental)] 325 mg PO DAILY 10/08/18 [History] Folic Acid 0.4 mg PO DAILY 10/08/18 [History] L.acidoph,Paracasei, B.lactis [Probiotic] 2 cap PO BID 10/08/18 [History] Melatonin 5 mg PO HS PRN 10/08/18 [History] Multivitamins, Thera Liquid [Theragran Liquid (formulary)] 30 ml PO DAILY 10/08/18 [History] Potassium 99 mg PO DAILY 10/08/18 [History] Thiamine [Vitamin B-1] 100 mg PO DAILY 10/08/18 [History] Vitamin B-Complex Drops 1 ml PO BID 10/08/18 [History] Atorvastatin [Lipitor] 40 mg PO HS #30 tab 11/16/18 [Rx] Pantoprazole [Protonix] 40 mg PO BID 01/29/19 [History] Hydrocortisone [Cortef] 10 mg PO AC-LUNCH 08/30/19 [History] Venlafaxine HCl [Effexor XR] 75 mg PO DAILY 11/08/19 [History] Acetaminophen Tab [Tylenol] 1,000 mg PO Q6HR PRN 12/06/19 [History] Butalb/APAP/Caff 50-325-40Mg [Fioricet 50-325-40] 1 tab PO QID PRN 12/06/19 [History] Clopidogrel [Plavix] 75 mg PO DAILY 12/06/19 [History] Magnesium Oxide [Mag-Ox] 400 mg PO DAILY 12/06/19 [History] Ondansetron HCl [Zofran] 4 mg PO Q6H PRN 12/06/19 [History] Promethazine 6.25MG/5Ml [Phenergan Syrup] 6.25 mg PO Q6H PRN 12/06/19 [History] Insulin Aspart [NovoLOG Flexpen] See Protocol SQ AC-TID 12/30/19 [History] Spironolactone [Aldactone] 50 mg PO DAILY 12/30/19 [History] HYDROcodone/APAP 10-325MG [[place] 10-325] 1 tab PO Q8H PRN #0 01/06/20 [Rx] Insulin Glargine,Hum.rec.anlog [Lantus Solostar] 20 unit SQ HS@2200 #0 01/06/20 [Rx] Estrogens, Conjugated Cream [Premarin Cream] 1 applicator VAGINAL WESA 02/16/20 [History] Cholestyramine (with Sugar) [Questran Packet] 4 gm PO TID BETWEEN MEALS #30 packet 02/19/20 [Rx] Metoclopramide [Reglan] 5 mg PO TID PRN #30 tab 02/19/20 [Rx] Nitrofurantoin Monohyd/M-Cryst [Macrobid] 100 mg PO BID #60 cap 02/19/20 [Rx] lisinopriL [Zestril] 40 mg PO W/BRKFST #60 tab 02/19/20 [Rx] Follow up Appointment(s)/Referral(s): Andrew Gonsales MD [Primary Care Provider] - 1-2 days Warren Rosenberg MD [STAFF PHYSICIAN] - 2 Weeks [facility], [NON-STAFF] - Ambulatory/Diagnostic Orders: Complete Blood Count w/diff [LAB.AMB] Time Frame: 3 Days, Location: None Selected Activity/Diet/Wound Care/Special Instructions: Ankle brace-patient can purchase at [facility]
[2020-02-19 11:39] LABS: Glucose,Whole Blood 152 mg/dL (75-99)
[2020-02-19] MEDS ORDERED: ESTROGENS, CONJUGATED 0.625 MG/GM VAGINAL CREAM 42.5 GM TUBE VAGINAL SCH (12:00)
[2020-02-19 12:14] VITALS: BP 170/83
[2020-02-19] MEDS: HYDROcodone/APAP 10-325MG 1 EACH TAB PO PRN ×2 (12:25)
[2020-02-20] MEDS ORDERED: lisinopriL 20 MG TAB PO SCH (07:30)
--- NOTE | 2020-02-21 21:24 | CDI ---
Documentation Clarification Form Date: 02/22/2020 From: Erasmo Jackson Phone: If you have a question about this query, please contact Lissy Chawla, Cloth Examiner at [phone] between 8am and 5pm. Admit Date: 02/16/2020 Discharge Date: 02/19/2020 Patient Name: Melissa Pena Visit Number: [id number] ATTENTION: The Clinical Documentation Specialists (CDI) and [facility] Coding Staff appreciate your assistance in clarifying documentation. Please respond to the clarification below the line at the bottom and electronically sign. The CDI & [facility] Coding staff will review the response and follow-up if needed. Please note: Queries are made part of the Legal Health Record. If you have any questions, please contact the author of this message via ITS. Dear Andrew Enamorado MD., The patients principal diagnosis has not been clearly identified and requires clarification. She presented with the chest pain and Nausea and vomiting. History/Risk factors: Hyperlipidemia, Obesity, DM, HTN Clinical Indicators: Nausea and vomiting, chest pain Per product planner(Dr. Manuel Cruz) mentioned as "Nausea and vomiting, suspect secondary to gastroparesis". and also patient has DM Type2. Per DS "Acute chest pain accompanied by nausea and vomiting.Troponin is negative 3, possibly musculoskeletal in nature". In your professional opinion, can you please clarify Relation between gastroparesis and DM? Nausea and vomiting related to gastroparesis seondary to DM type 2 YES NO Other, Please Specify YES MTDD
== END 2020-02-19 15:34 | disposition home health service (06) | DRG 74 ==
LOC: EC 08:44 → 3SCARD 10:01
PROVIDERS: ADMIT Family Medicine; ATTEND Family Medicine
DX: E11.43 Type 2 diabetes mellitus with diabetic autonomic (poly)neuropathy (principal); E87.1 Hypo-osmolality and hyponatremia; E27.40 Unspecified adrenocortical insufficiency; E83.42 Hypomagnesemia; R07.89 Other chest pain; E86.0 Dehydration; E66.9 Obesity, unspecified; G43.919 Migraine, unspecified, intractable, without status migrainosus; M54.81 Occipital neuralgia; I25.10 Atherosclerotic heart disease of native coronary artery without angina pectoris; K31.84 Gastroparesis; I10 Essential (primary) hypertension; M79.7 Fibromyalgia; E78.5 Hyperlipidemia, unspecified; G47.33 Obstructive sleep apnea (adult) (pediatric); F32.9 Major depressive disorder, single episode, unspecified; M13.0 Polyarthritis, unspecified; Z79.899 Other long term (current) drug therapy; Z79.02 Long term (current) use of antithrombotics/antiplatelets; Z79.82 Long term (current) use of aspirin; Z88.1 Allergy status to other antibiotic agents; Z88.5 Allergy status to narcotic agent; Z88.0 Allergy status to penicillin; Z88.2 Allergy status to sulfonamides; Z88.8 Allergy status to other drugs, medicaments and biological substances; Z86.718 Personal history of other venous thrombosis and embolism; Z87.01 Personal history of pneumonia (recurrent); Z87.440 Personal history of urinary (tract) infections; Z86.19 Personal history of other infectious and parasitic diseases; Z87.442 Personal history of urinary calculi; Z87.81 Personal history of (healed) traumatic fracture; Z86.14 Personal history of Methicillin resistant Staphylococcus aureus infection; Z90.49 Acquired absence of other specified parts of digestive tract; Z90.89 Acquired absence of other organs; Z98.890 Other specified postprocedural states; Z98.1 Arthrodesis status; Z90.710 Acquired absence of both cervix and uterus; Z89.431 Acquired absence of right foot; Z98.42 Cataract extraction status, left eye; Z98.41 Cataract extraction status, right eye; Z82.49 Family history of ischemic heart disease and other diseases of the circulatory system; Z80.49 Family history of malignant neoplasm of other genital organs; Z83.3 Family history of diabetes mellitus; Z83.6 Family history of other diseases of the respiratory system; Z68.32 Body mass index [BMI] 32.0-32.9, adult; Z79.4 Long term (current) use of insulin
CPT/HCPCS: 36415; 71046; 80048; 80053; 81001; 82550; 83036; 83690; 83735; 83880; 84484; 85025; 85027; 85610; 85730; 87077; 87086; 87186; 93005; 96361; 96374; 96375; 99285

== ENCOUNTER 2020-02-20 12:48 | Inpatient (IN) | payer MEDICARE, BC ==
[2020-02-20] MEDS ORDERED: LEVOFLOXACIN 250MG-D5W PMX 250 MG in DEXTROSE/WATER 1 50ML.BAG IVPB STA (13:05)
--- NOTE | 2020-02-20 13:17 | ED ---
General Adult HPI - General Chief complaint: Weakness Stated complaint: Weakness, UTI Time Seen by Provider: 02/20/20 13:04 Source: patient Mode of arrival: EMS Limitations: no limitations - History of Present Illness Initial comments: Dictation was produced using [employer] dictation software. please excuse any grammatical, word or spelling errors. This patient was cared for during a federal and state declared state of emergency secondary to Covid 19 Chief Complaint: 69-year-old female multiple comorbidities presents with nausea vomiting and weakness History of Present Illness: Is a 69-year-old female she has multiple comorbidities including diabetes, DVT, fibromyalgia, steroid dependence presents with nausea vomiting and weakness. Patient was just discharged from our hospital yesterday. Since being at home she states that she has worsening weakness and nausea. She states that her nausea is green and characteristic of bile. She does complain of diffuse abdominal pain. Patient has any fever, chills or night sweats. She goes on to mention that she fell while she was admitted to the hospital causing her some bruising to the left chest and left foot. She wants Dilaudid. The ROS documented in this emergency department record has been reviewed and confirmed by me. Those systems with pertinent positive or negative responses have been documented in the HPI. All other systems are other negative and/or noncontributory. PHYSICAL EXAM: General Impression: Alert and oriented x3, not in acute distress HEENT: Normocephalic atraumatic, extra-ocular movements intact, pupils equal and reactive to light bilaterally, mucous membranes moist. Cardiovascular: Heart regular rate and rhythm Chest: Able to complete full sentences, no retractions, no tachypnea Abdomen: abdomen soft, non-tender, non-distended, no organomegaly Musculoskeletal: Pulses present and equal in all extremities, no peripheral edema Motor: no focal deficits noted Neurological: CN II-XII grossly intact, no focal motor or sensory deficits noted Skin: Intact with no visualized rashes Psych: Normal affect and mood ED course: 69-year-old female she is well-known to emergency department for multiple visitations for myriad of complaints. She has history of chronic pain and opiate dependence. Vital signs upon arrival are within acceptable limits. Chart review was performed. Patient was just discharged from the hospital yesterday. She did have urinary tract infection. She was prescribed Macrobid. Dr. Amado cultures are available showing patient has Klebsiella UTI with resistance to it. Patient is well-appearing on physical examination. She is given a dose of Levaquin IV here. Laboratory evaluation obtained. CBC shows leukocytosis to 0.8. Slightly elevated. She does have history of urinary tract infection. Sodium 128. She is slightly lower than patient's baseline. Rest metabolic panel is unremarkable. Urinalysis shows 4+ ketones, 1+ glucose and nitrite positive with 39 white blood cells. Patient given a dose of Levaquin. This patient case with Dr. Gonsales for recommendation to disposition. He is agreeable for admission for further inpatient care. We have value at bedside she stable medical condition. - Related Data Home Medications Medication Instructions Recorded Confirmed Cholecalciferol [Vitamin D3 (25 3,000 unit PO DAILY@0700 12/01/14 02/20/20 Mcg = 1000 Iu)] Metoprolol Succinate (ER) [Toprol 50 mg PO HS 07/06/17 02/20/20 XL] Meclizine [Antivert] 25 mg PO QID PRN 11/26/17 02/20/20 Hydrocortisone [Cortef] 15 mg PO AC-BRKFST 05/18/18 02/20/20 Hydrocortisone [Cortef] 5 mg PO HS 06/26/18 02/20/20 Glucagon Emergency Kit 1 mg IM ONCE PRN 08/12/18 02/20/20 Cranberry 300mg 300 mg PO BID 10/08/18 02/20/20 Ferrous Sulfate [Iron (65 MG 325 mg PO DAILY 10/08/18 02/20/20 Elemental)] Folic Acid 0.4 mg PO DAILY 10/08/18 02/20/20 L.acidoph,Paracasei, B.lactis 2 cap PO BID 10/08/18 02/20/20 [Probiotic] Melatonin 5 mg PO HS PRN 10/08/18 02/20/20 Multivitamins, Thera Liquid 30 ml PO DAILY 10/08/18 02/20/20 [Theragran Liquid (formulary)] Potassium 99 mg PO DAILY 10/08/18 02/20/20 Thiamine [Vitamin B-1] 100 mg PO DAILY 10/08/18 02/20/20 Vitamin B-Complex Drops 1 ml PO BID 10/08/18 02/20/20 Pantoprazole [Protonix] 40 mg PO BID 01/29/19 02/20/20 Hydrocortisone [Cortef] 10 mg PO AC-LUNCH 08/30/19 02/20/20 Venlafaxine HCl [Effexor XR] 75 mg PO DAILY 11/08/19 02/20/20 Acetaminophen Tab [Tylenol] 1,000 mg PO Q6HR PRN 12/06/19 02/20/20 Butalb/APAP/Caff 50-325-40Mg 1 tab PO QID PRN 12/06/19 02/20/20 [Fioricet 50-325-40] Clopidogrel [Plavix] 75 mg PO DAILY 12/06/19 02/20/20 Magnesium Oxide [Mag-Ox] 400 mg PO DAILY 12/06/19 02/20/20 Ondansetron HCl [Zofran] 4 mg PO Q6H PRN 12/06/19 02/20/20 Promethazine 6.25MG/5Ml [Phenergan 6.25 mg PO Q6H PRN 12/06/19 02/20/20 Syrup] Insulin Aspart [NovoLOG Flexpen] See Protocol SQ AC-TID 12/30/19 02/20/20 Spironolactone [Aldactone] 50 mg PO DAILY 12/30/19 02/20/20 Estrogens, Conjugated Cream 1 applicator VAGINAL WESA 02/16/20 02/20/20 [Premarin Cream] Previous Rx's Medication Instructions Recorded Aspirin 81 mg PO DAILY #0 07/02/18 Atorvastatin [Lipitor] 40 mg PO HS #30 tab 11/16/18 HYDROcodone/APAP 10-325MG [[place] 1 tab PO Q8H PRN #0 01/06/20 10-325] Insulin Glargine,Hum.rec.anlog 20 unit SQ HS@2200 #0 01/06/20 [Lantus Solostar] Cholestyramine (with Sugar) 4 gm PO TID BETWEEN MEALS #30 02/19/20 [Questran Packet] packet Metoclopramide [Reglan] 5 mg PO TID PRN #30 tab 02/19/20 Nitrofurantoin Monohyd/M-Cryst 100 mg PO BID #60 cap 02/19/20 [Macrobid] lisinopriL [Zestril] 40 mg PO W/BRKFST #60 tab 02/19/20 Allergies Allergy/AdvReac Type Severity Reaction Status Date / Time butorphanol tartrate Allergy BLISTERS Verified 02/20/20 13:00 [From Stadol] IN MOUTH ceftriaxone [From Rocephin] Allergy Unknown Verified 02/20/20 13:00 clarithromycin [From Biaxin] Allergy Rash/Hives Verified 02/20/20 13:00 codeine Allergy Rash/Hives Verified 02/20/20 13:00 ergotamine tartrate Allergy Unknown Verified 02/20/20 13:00 [From Cafergot] erythromycin base Allergy RASH, GI Verified 02/20/20 13:00 [From E-Mycin] SYMPTOMS ketorolac tromethamine Allergy Rash/Hives Verified 02/20/20 13:00 [From Toradol] liraglutide [From Victoza] Allergy Rash/Hives Verified 02/20/20 13:00 morphine Allergy Rash/Hives Verified 02/20/20 13:00 Penicillins Allergy Rash/Hives Verified 02/20/20 13:00 pentazocine lactate Allergy SEVERE Verified 02/20/20 13:00 [From Talwin] BLISTERS IN MOUTH pregabalin [From Lyrica] Allergy Rash/Hives Verified 02/20/20 13:00 propoxyphene HCl Allergy Rash/Hives Verified 02/20/20 13:00 [From Darvon] Sulfa (Sulfonamide Allergy Rash/Hives Verified 02/20/20 13:00 Antibiotics) tramadol Allergy Unknown Verified 02/20/20 13:00 monosodium glutamate [MSG] AdvReac Nausea & Verified 02/20/20 13:00 Vomiting nalbuphine HCl [From Nubain] AdvReac Nausea & Verified 02/20/20 13:00 Vomiting Review of Systems ROS Statement: Those systems with pertinent positive or pertinent negative responses have been documented in the HPI. ROS Other: All systems not noted in ROS Statement are negative. Past Medical History Past Medical History: Diabetes Mellitus, Deep Vein Thrombosis (DVT), Fibromyalgia, Hyperlipidemia, Hypertension, Osteoarthritis (OA), Pneumonia, Renal Disease, Sleep Apnea/CPAP/BIPAP, Vascular Disorder Additional Past Medical History / Comment(s): Pt recently admitted to [facility] on 11/28/19 with recurerent UTI. 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, DVT R calf in 1976, cardiac murmur, occipital neuraligia, balance issues-has narrowing of vessels "in the back of my head", vertigo, varicosities, states rt shoulder torn rotator cuff History of Any Multi-Drug Resistant Organisms: ESBL, MRSA, VRE Date of last positivie culture/infection: 11/09/19 ESBL; 03/10/11 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 MDRO Source:: ESBL URINE; MRSA 4th rt TOE VRE URINE Past Surgical History: Appendectomy, Back Surgery, Bladder Surgery, Breast Surgery, Cholecystectomy, Heart Catheterization, Hysterectomy, Orthopedic Surgery, Tonsillectomy Additional Past Surgical History / Comment(s): Lumbar fusions, bladder suspension, occipital nerve blocks, 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, R wrist/elbow nerve repair, bone removed R shoulder, 4th toe R foot partial amputation, bilateral feet/bunionectomies, R knee arthroscopies, R orbit decompression with ethmoidectomy and eyelid lift, EGD, colonoscopies, cystocopies, lithotripsy/stents, bilateral breast reduction, bilateral cataract removals, parathyroid surgery - April 2019, pain clinic procedures Past Anesthesia/Blood Transfusion Reactions: No Reported Reaction Additional Past Anesthesia/Blood Transfusion Reaction / Comment(s): never recieved blood Past Psychological History: Depression Smoking Status: Never smoker Past Alcohol Use History: None Reported Past Drug Use History: None Reported - Past Family History Father Family Medical History: Coronary Artery Disease (CAD), CVA/TIA, Diabetes Mellitus, Myocardial Infarction (NC), Pneumonia Additional Family Medical History / Comment(s): Father at the age of 78yrs from NC and pneumonia. Mother Family Medical History: Cancer Additional Family Medical History / Comment(s): Mother had uterine cancer. She recently at the age of 96yrs old from [employer]. General Exam Limitations: no limitations Course Vital Signs 02/20/20 12:51 Temperature 98.2 F Pulse Rate 101 H Respiratory 18 Rate Blood Pressure 176/104 O2 Sat by Pulse 99 Oximetry Medical Decision Making - Lab Data Result diagrams: 02/20/20 15:26 02/20/20 15:26 Lab Results 02/20/20 02/20/20 02/20/20 Range/Units 13:14 15:26 15:26 WBC 12.8 H (3.8-10.6) k/uL RBC 4.59 (3.80-5.40) m/uL Hgb 12.9 (11.4-16.0) gm/dL Hct 40.9 (34.0-46.0) % MCV 89.1 (80.0-100.0) fL MCH 28.1 (25.0-35.0) pg MCHC 31.6 (31.0-37.0) g/dL RDW 13.8 (11.5-15.5) % Plt Count 213 (150-450) k/uL Neutrophils % 77 % Lymphocytes % 14 % Monocytes % 6 % Eosinophils % 1 % Basophils % 0 % Neutrophils # 9.8 H (1.3-7.7) k/uL Lymphocytes # 1.7 (1.0-4.8) k/uL Monocytes # 0.8 (0-1.0) k/uL Eosinophils # 0.2 (0-0.7) k/uL Basophils # 0.1 (0-0.2) k/uL Sodium 128 L (137-145) mmol/L Potassium 3.8 (3.5-5.1) mmol/L Chloride 93 L (98-107) mmol/L Carbon Dioxide 21 L (22-30) mmol/L Anion Gap 14 mmol/L BUN 6 L (7-17) mg/dL Creatinine 0.49 L (0.52-1.04) mg/dL Est GFR (CKD-EPI)AfAm >90 (>60 ml/min/1.73 sqM) Est GFR (CKD-EPI)NonAf >90 (>60 ml/min/1.73 sqM) Glucose 194 H (74-99) mg/dL Calcium 8.6 (8.4-10.2) mg/dL Total Bilirubin 0.8 (0.2-1.3) mg/dL AST 24 (14-36) U/L ALT 14 (4-34) U/L Alkaline Phosphatase 74 (38-126) U/L Total Protein 5.8 L (6.3-8.2) g/dL Albumin 3.6 (3.5-5.0) g/dL Lipase 38 (23-300) U/L Urine Color Yellow Urine Appearance Clear (Clear) Urine pH 6.0 (5.0-8.0) Ur Specific [place] 1.012 (1.001-1.035) Urine Protein Trace H (Negative) Urine Glucose (UA) 1+ H (Negative) Urine Ketones 4+ H (Negative) Urine Blood Negative (Negative) Urine Nitrite Positive H (Negative) Urine Bilirubin Negative (Negative) Urine Urobilinogen <2.0 (<2.0) mg/dL Ur Leukocyte Esterase Moderate H (Negative) Urine RBC 5 (0-5) /hpf Urine WBC 39 H (0-5) /hpf Urine Bacteria Few H (None) /hpf Urine Mucus Rare H (None) /hpf Disposition Clinical Impression: Dizziness Disposition: ADMITTED IP TO THIS [facility] Condition: Fair Referrals: Andrew Gonsales MD [Primary Care Provider] - 1-2 days Decision Time: 15:53
[2020-02-20 15:02] LABS: Appearance,Urine Clear (Clear); Bacteria,Urine Few /hpf; Bilirubin,Urine Negative (Negative); Blood,Urine Negative (Negative); Color,Urine Yellow; Glucose,Urine (UA) 1+ (Negative); Leukocyte Esterase,Urine Moderate (Negative); Mucus,Urine Rare /hpf; Nitrite,Urine Positive (Negative); Protein,Urine Trace (Negative); RBC,Urine 5 /hpf (0-5); Specific Gravity,Urine 1.012 (1.001-1.035); Urobilinogen,Urine <2.0 mg/dL (<2.0); WBC,Urine 39 /hpf (0-5)
[2020-02-20 15:06] LABS: Ketones,Urine 4+ (Negative)
[2020-02-20] MEDS ORDERED: SODIUM CHLORIDE 0.9% 1,000 ML IV STA (15:13)
[2020-02-20] MEDS ORDERED: METOCLOPRAMIDE 5 MG/ML 2 ML VIAL IVP STA (15:13)
[2020-02-20 15:41] LABS: Basophils # (A) 0.1 k/uL (0-0.2); Basophils % (A) 0 %; Eosinophils # (A) 0.2 k/uL (0-0.7); Eosinophils % (A) 1 %; HCT 40.9 % (34.0-46.0); HGB 12.9 gm/dL (11.4-16.0); Lymphocytes # (A) 1.7 k/uL (1.0-4.8); Lymphocytes % (A) 14 %; MCH 28.1 pg (25.0-35.0); MCHC 31.6 g/dL (31.0-37.0); MCV 89.1 fL (80.0-100.0); Mean Platelet Volume 8.1; Monocytes # (A) 0.8 k/uL (0-1.0); Monocytes % (A) 6 %; Neutrophils # (A) 9.8 k/uL (1.3-7.7); Neutrophils % (A) 77 %; Platelet Count 213 k/uL (150-450); RBC 4.59 m/uL (3.80-5.40); RDW 13.8 % (11.5-15.5); WBC 12.8 k/uL (3.8-10.6)
[2020-02-20 15:44] LABS: ALT 14 U/L (4-34); AST 24 U/L (14-36); African American GFR (CKD) >90 (>60 ml/min/1.73 sqM); Albumin 3.6 g/dL (3.5-5.0); Alkaline Phosphatase 74 U/L (38-126); Anion Gap 14 mmol/L; Blood Urea Nitrogen 6 mg/dL (7-17); Calcium 8.6 mg/dL (8.4-10.2); Carbon Dioxide 21 mmol/L (22-30); Chloride 93 mmol/L (98-107); Glucose 194 mg/dL (74-99); Non-African American GFR(CKD) >90 (>60 ml/min/1.73 sqM); Potassium 3.8 mmol/L (3.5-5.1); Sodium 128 mmol/L (137-145); Total Bilirubin 0.8 mg/dL (0.2-1.3); Total Protein 5.8 g/dL (6.3-8.2)
[2020-02-20] MEDS ORDERED: ACETAMINOPHEN TAB 325 MG TAB PO PRN (15:53)
[2020-02-20] MEDS ORDERED: NALOXONE 0.4 MG/ML 1 ML VIAL IV PRN (15:53)
[2020-02-20] MEDS: SODIUM CHLORIDE 0.9% 1,000 ML IV SCH (16:10)
[2020-02-20] MEDS ORDERED: LABETALOL 5 MG/ML VIAL MDV IVP STA (16:24)
[2020-02-20] MEDS: ONDANSETRON 4 MG/2 ML VIAL IVP PRN (18:16)
[2020-02-20] MEDS ORDERED: HYDROcodone/APAP 10-325MG 1 EACH TAB PO PRN (18:25)
[2020-02-20] MEDS: HYDROCORTISONE 10 MG TAB PO SCH (21:48)
[2020-02-20] MEDS: ATORVASTATIN 40 MG TAB PO SCH (21:48)
[2020-02-20] MEDS ORDERED: ACETAMINOPHEN TAB 500 MG TAB PO PRN (22:30)
[2020-02-20] MEDS ORDERED: METOCLOPRAMIDE 5 MG TAB PO PRN (22:45)
[2020-02-20] MEDS ORDERED: HYDROmorphone 0.5 MG/0.5 ML SYRINGE IVP STA (23:00)
[2020-02-20] MEDS: METOPROLOL SUCCINATE (ER) 50 MG TAB.ER.24H PO SCH (23:59)
[2020-02-20] MEDS: INSULIN DETEMIR (LEVEMIR) 100 UNIT/ML SYR SQ SCH (23:59)
[2020-02-21] LABS: Glucose,Whole Blood 189 mg/dL (75-99)
[2020-02-21] MEDS: ONDANSETRON 4 MG/2 ML VIAL IVP PRN ×2 (03:23→15:35)
[2020-02-21] MEDS: HYDROcodone/APAP 10-325MG 1 EACH TAB PO PRN ×5 (03:23→21:34)
[2020-02-21] MEDS: SODIUM CHLORIDE 0.9% 1,000 ML IV SCH ×2 (05:11→18:16)
[2020-02-21] MEDS: CHOLECALCIFEROL 1,000 UNIT TAB PO SCH (06:49)
[2020-02-21 06:52] LABS: Glucose,Whole Blood 150 mg/dL (75-99)
[2020-02-21] MEDS: HYDROCORTISONE 10 MG TAB PO SCH ×3 (08:18→20:17)
[2020-02-21] MEDS: ASPIRIN 81 MG PO SCH (08:19)
[2020-02-21] MEDS: lisinopriL 20 MG TAB PO SCH (08:19)
[2020-02-21] MEDS: FOLIC ACID 1 MG TAB PO SCH (08:19)
[2020-02-21] MEDS: SPIRONOLACTONE 25 MG TAB PO SCH (08:20)
[2020-02-21] MEDS: VENLAFAXINE HCL ER 75 MG CAP PO SCH (08:21)
[2020-02-21] MEDS: PANTOPRAZOLE 40 MG TABLET PO SCH ×2 (08:21→20:16)
[2020-02-21] MEDS: MAGNESIUM OXIDE 400 MG TAB PO SCH (08:21)
[2020-02-21] MEDS: CLOPIDOGREL 75 MG TAB PO SCH (08:21)
[2020-02-21] MEDS: LEVOFLOXACIN 750MG-D5W PMX 750 MG in DEXTROSE/WATER 1 150ML.BAG IVPB SCH (08:22)
[2020-02-21] MEDS ORDERED: diphenhydrAMINE 50 MG/ML 1 ML VIAL IVP STA (10:17)
[2020-02-21] MEDS ORDERED: METOCLOPRAMIDE 5 MG/ML 2 ML VIAL IVP STA (10:17)
[2020-02-21 11:42] LABS: Glucose,Whole Blood 121 mg/dL (75-99)
[2020-02-21] MEDS: CHOLESTYRAMINE (WITH SUGAR) 4 GM PACKET PO SCH ×3 (11:46→18:16)
[2020-02-21 13:47] VITALS: BMI 27.3
[2020-02-21 16:42] LABS: Glucose,Whole Blood 165 mg/dL (75-99)
[2020-02-21] MEDS: METOPROLOL SUCCINATE (ER) 50 MG TAB.ER.24H PO SCH (20:16)
[2020-02-21] MEDS: ATORVASTATIN 40 MG TAB PO SCH (20:16)
--- NOTE | 2020-02-21 21:21 | P.HPIM ---
History of Present Illness H&P Date: 02/21/20 Chief Complaint: abdominal pain Melissa Pena is a 69 yo F with PMH of recurrent UTI, T2DM, adrenal insufficiency, chronic migraine who presented to the ED complaining of abdominal pain. She was just recently admitted a few days ago with chest pain and discharged on 02/18. During this admission she was noted to have a UTI as well which was empirically treated with macrobid. She complains of nausea as well which has worsened since she left the hospital. She also complains of severe migraine as well as L sided chest wall and rib pain she attributes to a fall a few days ago. Her urine culture from last admission did show enterococcus with intermediate sensitivity to macrobid. On admission her vitals were stable, WBC 13k. Review of Systems All systems: negative Constitutional: Reports fatigue, Reports malaise, Reports weakness, Denies chills, Denies fever Eyes: denies blurred vision, denies pain Ears, nose, mouth and throat: Denies headache, Denies sore throat Cardiovascular: Denies chest pain, Denies shortness of breath Respiratory: Denies cough Gastrointestinal: Reports abdominal pain, Denies diarrhea, Denies nausea, Denies vomiting Genitourinary: Denies dysuria, Denies hematuria Musculoskeletal: Denies myalgias Integumentary: Denies pruritus, Denies rash Neurological: Denies numbness, Denies weakness Psychiatric: Denies anxiety, Denies depression Endocrine: Denies fatigue, Denies weight change Past Medical History Past Medical History: Diabetes Mellitus, Deep Vein Thrombosis (DVT), Fibromyalgia, Hyperlipidemia, Hypertension, Osteoarthritis (OA), Pneumonia, Renal Disease, Sleep Apnea/CPAP/BIPAP, Vascular Disorder Additional Past Medical History / Comment(s): Pt recently admitted to [facility] on 11/28/19 with recurerent UTI. 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, DVT R calf in 1976, cardiac murmur, occipital neuraligia, balance issues-has narrowing of vessels "in the back of my head", vertigo, varicosities, states rt shoulder torn rotator cuff History of Any Multi-Drug Resistant Organisms: ESBL, MRSA, VRE Date of last positivie culture/infection: 11/09/19 ESBL; 03/10/11 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 MDRO Source:: ESBL URINE; MRSA 4th rt TOE VRE URINE Past Surgical History: Appendectomy, Back Surgery, Bladder Surgery, Breast Surgery, Cholecystectomy, Heart Catheterization, Hysterectomy, Orthopedic Surgery, Tonsillectomy Additional Past Surgical History / Comment(s): Lumbar fusions, bladder suspension, occipital nerve blocks, 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, R wrist/elbow nerve repair, bone removed R shoulder, 4th toe R foot partial amputation, bilateral feet/bunionectomies, R knee arthroscopies, R orbit d ecompression with ethmoidectomy and eyelid lift, EGD, colonoscopies, cystocopies, lithotripsy/stents, bilateral breast reduction, bilateral cataract removals, parathyroid surgery - April 2019, pain clinic procedures Past Anesthesia/Blood Transfusion Reactions: No Reported Reaction Additional Past Anesthesia/Blood Transfusion Reaction / Comment(s): never recieved blood Past Psychological History: Depression Additional Psychological History / Comment(s): Pt resides with her spouse. She uses a walker. She normally drives. She has a nebulizer, cpap, bsc, shower chair, bp machine, dexcom monitor system for her bs. Smoking Status: Never smoker Past Alcohol Use History: None Reported Additional Past Alcohol Use History / Comment(s): no alcohol Past Drug Use History: None Reported - Past Family History Father Family Medical History: Coronary Artery Disease (CAD), CVA/TIA, Diabetes Mellitus, Myocardial Infarction (NV), Pneumonia Additional Family Medical History / Comment(s): Father at the age of 78yrs from NV and pneumonia. Mother Family Medical History: Cancer Additional Family Medical History / Comment(s): Mother had uterine cancer. She recently at the age of 96yrs old from [place] [facility]. Medications and Allergies Home Medications Medication Instructions Recorded Confirmed Type Cholecalciferol [Vitamin D3 (25 3,000 unit PO DAILY@0700 12/01/15 02/20/20 History Mcg = 1000 Iu)] Metoprolol Succinate (ER) [Toprol 50 mg PO HS 07/06/17 02/20/20 History XL] Meclizine [Antivert] 25 mg PO QID PRN 11/26/17 02/20/20 History Hydrocortisone [Cortef] 15 mg PO AC-BRKFST 05/18/18 02/20/20 History Hydrocortisone [Cortef] 5 mg PO HS 06/26/18 02/20/20 History Aspirin 81 mg PO DAILY #0 07/02/18 02/20/20 Rx Glucagon Emergency Kit 1 mg IM ONCE PRN 08/12/18 02/20/20 History Cranberry 300mg 300 mg PO BID 10/08/18 02/20/20 History Ferrous Sulfate [Iron (65 MG 325 mg PO DAILY 10/08/18 02/20/20 History Elemental)] Folic Acid 0.4 mg PO DAILY 10/08/18 02/20/20 History L.acidoph,Paracasei, B.lactis 2 cap PO BID 10/08/18 02/20/20 History [Probiotic] Melatonin 5 mg PO HS PRN 10/08/18 02/20/20 History Multivitamins, Thera Liquid 30 ml PO DAILY 10/08/18 02/20/20 History [Theragran Liquid (formulary)] Potassium 99 mg PO DAILY 10/08/18 02/20/20 History Thiamine [Vitamin B-1] 100 mg PO DAILY 10/08/18 02/20/20 History Vitamin B-Complex Drops 1 ml PO BID 10/08/18 02/20/20 History Atorvastatin [Lipitor] 40 mg PO HS #30 tab 11/16/18 02/20/20 Rx Pantoprazole [Protonix] 40 mg PO BID 01/29/19 02/20/20 History Hydrocortisone [Cortef] 10 mg PO AC-LUNCH 08/30/19 02/20/20 History Venlafaxine HCl [Effexor XR] 75 mg PO DAILY 11/08/19 02/20/20 History Acetaminophen Tab [Tylenol] 1,000 mg PO Q6HR PRN 12/06/19 02/20/20 History Butalb/APAP/Caff 50-325-40Mg 1 tab PO QID PRN 12/06/19 02/20/20 History [Fioricet 50-325-40] Clopidogrel [Plavix] 75 mg PO DAILY 12/06/19 02/20/20 History Magnesium Oxide [Mag-Ox] 400 mg PO DAILY 12/06/19 02/20/20 History Ondansetron HCl [Zofran] 4 mg PO Q6H PRN 12/06/19 02/20/20 History Promethazine 6.25MG/5Ml [Phenergan 6.25 mg PO Q6H PRN 12/06/19 02/20/20 History Syrup] Insulin Aspart [NovoLOG Flexpen] See Protocol SQ AC-TID 12/30/19 02/20/20 History Spironolactone [Aldactone] 50 mg PO DAILY 12/30/19 02/20/20 History HYDROcodone/APAP 10-325MG [[place] 1 tab PO Q8H PRN #0 01/06/20 02/20/20 Rx 10-325] Insulin Glargine,Hum.rec.anlog 20 unit SQ HS@2200 #0 01/06/20 02/20/20 Rx [Lantus Solostar] Estrogens, Conjugated Cream 1 applicator VAGINAL WESA 02/16/20 02/20/20 History [Premarin Cream] Cholestyramine (with Sugar) 4 gm PO TID BETWEEN MEALS #30 02/19/20 02/20/20 Rx [Questran Packet] packet Metoclopramide [Reglan] 5 mg PO TID PRN #30 tab 02/19/20 02/20/20 Rx Nitrofurantoin Monohyd/M-Cryst 100 mg PO BID #60 cap 02/19/20 02/20/20 Rx [Macrobid] lisinopriL [Zestril] 40 mg PO W/BRKFST #60 tab 02/19/20 02/20/20 Rx Allergies Allergy/AdvReac Type Severity Reaction Status Date / Time butorphanol tartrate Allergy BLISTERS Verified 02/20/20 13:00 [From Stadol] IN MOUTH ceftriaxone [From Rocephin] Allergy Unknown Verified 02/20/20 13:00 clarithromycin [From Biaxin] Allergy Rash/Hives Verified 02/20/20 13:00 codeine Allergy Rash/Hives Verified 02/20/20 13:00 ergotamine tartrate Allergy Unknown Verified 02/20/20 13:00 [From Cafergot] erythromycin base Allergy RASH, GI Verified 02/20/20 13:00 [From E-Mycin] SYMPTOMS ketorolac tromethamine Allergy Rash/Hives Verified 02/20/20 13:00 [From Toradol] liraglutide [From Victoza] Allergy Rash/Hives Verified 02/20/20 13:00 morphine Allergy Rash/Hives Verified 02/20/20 13:00 Penicillins Allergy Rash/Hives Verified 02/20/20 13:00 pentazocine lactate Allergy SEVERE Verified 02/20/20 13:00 [From Talwin] BLISTERS IN MOUTH pregabalin [From Lyrica] Allergy Rash/Hives Verified 02/20/20 13:00 propoxyphene HCl Allergy Rash/Hives Verified 02/20/20 13:00 [From Darvon] Sulfa (Sulfonamide Allergy Rash/Hives Verified 02/20/20 13:00 Antibiotics) tramadol Allergy Unknown Verified 02/20/20 13:00 monosodium glutamate [MSG] AdvReac Nausea & Verified 02/20/20 13:00 Vomiting nalbuphine HCl [From Nubain] AdvReac Nausea & Verified 02/20/20 13:00 Vomiting Physical Exam Vitals: Vital Signs Temp Pulse Resp BP Pulse Ox 02/21/20 15:00 98.3 F 79 16 165/77 92 L 02/21/20 09:00 98.0 F 83 18 154/89 94 L 02/21/20 03:00 98.2 F 81 18 129/68 95 Intake and Output 02/21/20 02/21/20 02/21/20 06:59 14:59 22:59 Intake Total 760 200 Output Total 400 Balance 760 200 -400 Intake: Intake, IV Titration 640 Amount Sodium Chloride 0.9% 1, 640 000 ml @ 80 mls/hr IV . [id number] [facility] Rx#:[id number] Oral 120 Other 200 Output: Urine 300 Stool 100 Other: Voiding Method Diaper Incontinent # Voids 1 1 2 Weight 63.503 kg General: well nourished, well developed, NAD. Vitals reviewed Eyes: PERRL, EOMI, conjunctiva normal HENT: normocephalic, mucus membranes moist Neck: supple, no JVD Lungs: normal respiratory effort, no wheezes or rales CV: Regular rate and rhythm, no murmur. Peripheral pulses 2+ Abdomen: soft, nondistended, no organomegaly. Tenderness L rib area Lymph: no cervical or axillary LAD Skin: warm and dry. Neuro: A&Ox3, normal mood and affect Results CBC & Chem 7: 02/20/20 15:26 02/20/20 15:26 Labs: Abnormal Lab Results - Last 24 Hours (Table) 02/20/20 02/21/20 02/21/20 Range/Units 23:58 06:51 11:40 POC Glucose (mg/dL) 189 H 150 H 121 H (75-99) mg/dL 02/21/20 Range/Units 16:39 POC Glucose (mg/dL) 165 H (75-99) mg/dL Microbiology - Last 24 Hours (Table) 02/20/20 13:14 Urine Culture - Preliminary Urine,Clean Catch Gram Neg Bacilli Thrombosis Risk Factor Assmnt - Choose All That Apply Each Risk Factor Represents 2 Points: Age 61-74 years Each Risk Factor Represents 3 Points: History of DVT/PE Other congenital or acquired thrombophilia - If yes, enter type in comment: No Thrombosis Risk Factor Assessment Total Risk Factor Score: 5 Thrombosis Risk Factor Assessment Level: High Risk Assessment and Plan (1) Complicated UTI (urinary tract infection) Current Visit: Yes Status: Acute Code(s): N39.0 - URINARY TRACT INFECTION, SITE NOT SPECIFIED SNOMED Code(s): 60881907 (2) At risk for readmission to hospital Current Visit: No Status: Acute Code(s): Z91.89 - OTH PERSONAL RISK FACTORS, NOT ELSEWHERE CLASSIFIED SNOMED Code(s): 6087836476759 (3) Leukocytosis Current Visit: No Status: Acute Code(s): D72.829 - ELEVATED WHITE BLOOD CELL COUNT, UNSPECIFIED SNOMED Code(s): 127680950 (4) Migraine Current Visit: No Status: Acute Code(s): G43.909 - MIGRAINE, UNSP, NOT I NTRACTABLE, WITHOUT STATUS MIGRAINOSUS SNOMED Code(s): 93923571 (5) Nausea & vomiting Current Visit: No Status: Acute Code(s): R11.2 - NAUSEA WITH VOMITING, UNSPECIFIED SNOMED Code(s): 96038396 (6) Adrenal insufficiency Current Visit: No Status: Chronic Code(s): E27.40 - UNSPECIFIED ADRENOCORTICAL INSUFFICIENCY SNOMED Code(s): 931141166 (7) DM type 2 (diabetes mellitus, type 2) Current Visit: No Status: Chronic Code(s): E11.9 - TYPE 2 DIABETES MELLITUS WITHOUT COMPLICATIONS SNOMED Code(s): 88217357 (8) Morbid obesity Current Visit: No Status: Chronic Code(s): E66.01 - MORBID (SEVERE) OBESITY DUE TO EXCESS CALORIES SNOMED Code(s): 122436573 Plan: 1. Complicated UTI. Repeat culture. Treat empirically with levaquin. Consider subacute rehab vs home health 2. Chest wall pain. Increase home norco to 10 mg q4h prn, wean IV narcotics 3. T2DM. Continue lantus and sliding scale 4. Adrenal insufficiency. Continue cortef
[2020-02-21 21:33] LABS: Glucose,Whole Blood 193 mg/dL (75-99)
[2020-02-21] MEDS: INSULIN DETEMIR (LEVEMIR) 100 UNIT/ML SYR SQ SCH (21:33)
[2020-02-21] MEDS: MELATONIN 5 MG TABLET PO PRN (21:34)
[2020-02-22] MEDS: HYDROcodone/APAP 10-325MG 1 EACH TAB PO PRN ×6 (01:45→22:08)
[2020-02-22 06:36] LABS: Glucose,Whole Blood 197 mg/dL (75-99)
[2020-02-22] MEDS: SODIUM CHLORIDE 0.9% 1,000 ML IV SCH ×2 (06:53→17:03)
[2020-02-22] MEDS: ONDANSETRON 4 MG/2 ML VIAL IVP PRN (06:54)
[2020-02-22 07:37] LABS: Basophils % (A) 0 %; Eosinophils # (A) 0.2 k/uL (0-0.7); Eosinophils % (A) 3 %; HCT 32.9 % (34.0-46.0); HGB 10.6 gm/dL (11.4-16.0); Lymphocytes # (A) 1.7 k/uL (1.0-4.8); Lymphocytes % (A) 23 %; MCH 28.6 pg (25.0-35.0); MCHC 32.1 g/dL (31.0-37.0); Mean Platelet Volume 7.5; Monocytes # (A) 0.5 k/uL (0-1.0); Monocytes % (A) 7 %; Neutrophils # (A) 4.7 k/uL (1.3-7.7); Neutrophils % (A) 65 %; Platelet Count 217 k/uL (150-450); RBC 3.69 m/uL (3.80-5.40); WBC 7.2 k/uL (3.8-10.6)
[2020-02-22] MEDS: LEVOFLOXACIN 750MG-D5W PMX 750 MG in DEXTROSE/WATER 1 150ML.BAG IVPB SCH (07:53)
[2020-02-22] MEDS: CLOPIDOGREL 75 MG TAB PO SCH (07:54)
[2020-02-22] MEDS: ASPIRIN 81 MG PO SCH (07:54)
[2020-02-22] MEDS: FOLIC ACID 1 MG TAB PO SCH (07:54)
[2020-02-22] MEDS: PANTOPRAZOLE 40 MG TABLET PO SCH ×2 (07:54→21:18)
[2020-02-22] MEDS: SPIRONOLACTONE 25 MG TAB PO SCH (07:54)
[2020-02-22] MEDS: MAGNESIUM OXIDE 400 MG TAB PO SCH (07:55)
[2020-02-22] MEDS: CHOLECALCIFEROL 1,000 UNIT TAB PO SCH (07:55)
[2020-02-22] MEDS: lisinopriL 20 MG TAB PO SCH (07:55)
[2020-02-22] MEDS: HYDROCORTISONE 10 MG TAB PO SCH ×3 (07:56→21:25)
[2020-02-22] MEDS: VENLAFAXINE HCL ER 75 MG CAP PO SCH (07:56)
[2020-02-22] MEDS: CHOLESTYRAMINE (WITH SUGAR) 4 GM PACKET PO SCH ×3 (10:39→16:53)
[2020-02-22 11:31] LABS: Glucose,Whole Blood 324 mg/dL (75-99)
[2020-02-22] MEDS: INSULIN ASPART (NovoLOG) 100 UNIT/ML VIAL SQ SCH ×2 (12:11→16:53)
[2020-02-22 16:40] LABS: Glucose,Whole Blood 75 mg/dL (75-99)
--- NOTE | 2020-02-22 17:25 | P.PN ---
Subjective Progress Note Date: 02/22/20 Principal diagnosis: UTI Debility 69 yo F with PMH of recurrent UTI, T2DM, adrenal insufficiency, chronic migraine who presented to the ED complaining of abdominal pain. She was just recently admitted a few days ago with chest pain and discharged on 02/18. During this admission she was noted to have a UTI as well which was empirically treated with macrobid. She complains of nausea as well which has worsened since she left the hospital. She also complains of severe migraine as well as L sided chest wall and rib pain she attributes to a fall a few days ago. Her urine culture from last admission did show enterococcus with intermediate sensitivity to macrobid. On admission her vitals were stable, WBC 13k. 02/22/2020 Patient is seen and evaluated in room at bedside; patient denies any specific complaints at this time; labs are reviewed and stable; urine culture growing gram-negative bacilli; final culture and sensitivities pending; patient remains on IV Levaquin; patient continues to have difficulty getting out of bed; we will consult PT/OT for evaluation and determination of discharge planning between home health care versus halfway facility Objective - Vital Signs Vital signs: Vital Signs Temp 98.4 F 02/22/20 07:52 Pulse 75 02/22/20 07:52 Resp 16 02/22/20 07:52 BP 114/64 02/22/20 07:52 Pulse Ox 95 02/22/20 07:52 Intake & Output 02/21/20 02/22/20 02/22/20 18:59 06:59 18:59 Intake Total 200 310 Output Total 400 Balance -200 310 Weight 63.503 kg Intake: Intake, IV Titration 310 Amount Levofloxacin 750Mg-D5w 150 Pmx 750 mg In Dextrose/ Water 1 150ml.bag @ 100 mls/hr IVPB Q24H [facility] Rx#: [id number] Sodium Chloride 0.9% 1, 160 000 ml @ 80 mls/hr IV . [id number] [facility] Rx#:[id number] Other 200 Output: Urine 300 Stool 100 Other: Voiding Method Diaper Bedside Commode Incontinent Incontinent # Voids 2 1 1 - Exam General: well nourished, well developed, NAD. Vitals reviewed Eyes: PERRL, EOMI, conjunctiva normal HENT: normocephalic, mucus membranes moist Neck: supple, no JVD Lungs: normal respiratory effort, no wheezes or rales CV: Regular rate and rhythm, no murmur. Peripheral pulses 2+ Abdomen: soft, nondistended, no organomegaly. Tenderness L rib area Lymph: no cervical or axillary LAD Skin: warm and dry. Neuro: A&Ox3, normal mood and affect - Labs CBC & Chem 7: 02/22/20 07:20 02/20/20 15:26 Labs: Abnormal Lab Results - Last 24 Hours (Table) 02/21/20 02/21/20 02/21/20 Range/Units 11:40 16:39 21:32 RBC (3.80-5.40) m/uL Hgb (11.4-16.0) gm/dL Hct (34.0-46.0) % POC Glucose (mg/dL) 121 H 165 H 193 H (75-99) mg/dL 02/22/20 02/22/20 Range/Units 06:34 07:20 RBC 3.69 L (3.80-5.40) m/uL Hgb 10.6 L (11.4-16.0) gm/dL Hct 32.9 L (34.0-46.0) % POC Glucose (mg/dL) 197 H (75-99) mg/dL Microbiology - Last 24 Hours (Table) 02/20/20 13:14 Urine Culture - Preliminary Urine,Clean Catch Gram Neg Bacilli Assessment and Plan Assessment: 1. Complicated UTI; Levaquin 500 milligrams IV daily; urine culture positive for gram-negative bacilli; await final culture and sensitivity results 2. Hyponatremia - Slowly dissolving; patient remains on IV fluids in form of normal saline at a rate of 80 mL an hour 3. Gait disturbance/debility; PT/OT consulted for discharge. 3. Leukocytosis; secondary to UTI; patient remains on IV antibiotics; we'll co ntinue to monitor CBC 4. Diabetes mellitus; monitor Accu-Cheks before meals and at bedtime with in sulin sliding scale; continue with home schedule of NovoLog 14 units before meals breakfast, 18 units before meals lunch and 24 units before meals supper; Levemir 20 units subcu daily at bedtime 5. Hypertension; lisinopril 40 mg daily, metoprolol 50 mg by mouth daily at bedtime 6. Hyperlipidemia; Lipitor 40 mg by mouth daily at bedtime 7. Adrenal insufficiency; continue with home schedule of hydrocortisone CODE STATUS; full code
[2020-02-22 20:21] LABS: Glucose,Whole Blood 272 mg/dL (75-99)
[2020-02-22] MEDS: ATORVASTATIN 40 MG TAB PO SCH (21:18)
[2020-02-22] MEDS: METOPROLOL SUCCINATE (ER) 50 MG TAB.ER.24H PO SCH (21:18)
[2020-02-22] MEDS: INSULIN DETEMIR (LEVEMIR) 100 UNIT/ML SYR SQ SCH (21:18)
[2020-02-22] MEDS: MELATONIN 5 MG TABLET PO PRN (21:25)
[2020-02-23] MEDS: HYDROcodone/APAP 10-325MG 1 EACH TAB PO PRN ×6 (02:19→23:08)
[2020-02-23 06:24] LABS: Glucose,Whole Blood 202 mg/dL (75-99)
[2020-02-23] MEDS: lisinopriL 20 MG TAB PO SCH (06:28)
[2020-02-23] MEDS: SODIUM CHLORIDE 0.9% 1,000 ML IV SCH ×2 (06:33→17:15)
[2020-02-23 07:57] LABS: Basophils % (A) 0 %; Eosinophils # (A) 0.2 k/uL (0-0.7); Eosinophils % (A) 3 %; HCT 34.4 % (34.0-46.0); HGB 11.3 gm/dL (11.4-16.0); Lymphocytes # (A) 1.9 k/uL (1.0-4.8); Lymphocytes % (A) 24 %; MCH 29.2 pg (25.0-35.0); MCHC 32.8 g/dL (31.0-37.0); Mean Platelet Volume 7.8; Monocytes # (A) 0.5 k/uL (0-1.0); Monocytes % (A) 6 %; Neutrophils # (A) 5.1 k/uL (1.3-7.7); Neutrophils % (A) 64 %; Platelet Count 246 k/uL (150-450); RBC 3.87 m/uL (3.80-5.40); RDW 13.9 % (11.5-15.5); WBC 7.9 k/uL (3.8-10.6)
[2020-02-23 08:07] LABS: African American GFR (CKD) >90 (>60 ml/min/1.73 sqM); Anion Gap 4 mmol/L; Blood Urea Nitrogen 6 mg/dL (7-17); Carbon Dioxide 29 mmol/L (22-30); Chloride 102 mmol/L (98-107); Glucose 176 mg/dL (74-99); Non-African American GFR(CKD) >90 (>60 ml/min/1.73 sqM); Sodium 135 mmol/L (137-145)
[2020-02-23] MEDS: ASPIRIN 81 MG PO SCH (08:31)
[2020-02-23] MEDS: MAGNESIUM OXIDE 400 MG TAB PO SCH (08:31)
[2020-02-23] MEDS: CLOPIDOGREL 75 MG TAB PO SCH (08:31)
[2020-02-23] MEDS: CHOLECALCIFEROL 1,000 UNIT TAB PO SCH (08:31)
[2020-02-23] MEDS: SPIRONOLACTONE 25 MG TAB PO SCH (08:31)
[2020-02-23] MEDS: PANTOPRAZOLE 40 MG TABLET PO SCH ×2 (08:31→20:08)
[2020-02-23] MEDS: LEVOFLOXACIN 750MG-D5W PMX 750 MG in DEXTROSE/WATER 1 150ML.BAG IVPB SCH (08:32)
[2020-02-23] MEDS: FOLIC ACID 1 MG TAB PO SCH (08:32)
[2020-02-23] MEDS: HYDROCORTISONE 10 MG TAB PO SCH ×3 (08:33→20:32)
[2020-02-23] MEDS: VENLAFAXINE HCL ER 75 MG CAP PO SCH (08:34)
[2020-02-23] MEDS: INSULIN ASPART (NovoLOG) 100 UNIT/ML VIAL SQ SCH ×3 (08:35→16:23)
[2020-02-23] MEDS: BUTALB/APAP/CAFF 50-325-40MG TAB PO PRN ×3 (08:44→20:31)
[2020-02-23] MEDS: CHOLESTYRAMINE (WITH SUGAR) 4 GM PACKET PO SCH ×3 (09:53→17:15)
[2020-02-23 11:14] LABS: Glucose,Whole Blood 163 mg/dL (75-99)
--- NOTE | 2020-02-23 16:03 | P.PN ---
Subjective Progress Note Date: 02/23/20 Principal diagnosis: UTI Debility 69 yo F with PMH of recurrent UTI, T2DM, adrenal insufficiency, chronic migraine who presented to the ED complaining of abdominal pain. She was just recently admitted a few days ago with chest pain and discharged on 02/18. During this admission she was noted to have a UTI as well which was empirically treated with macrobid. She complains of nausea as well which has worsened since she left the hospital. She also complains of severe migraine as well as L sided chest wall and rib pain she attributes to a fall a few days ago. Her urine culture from last admission did show enterococcus with intermediate sensitivity to macrobid. On admission her vitals were stable, WBC 13k. 02/22/2020 Patient is seen and evaluated in room at bedside; patient denies any specific complaints at this time; labs are reviewed and stable; urine culture growing gram-negative bacilli; final culture and sensitivities pending; patient remains on IV Levaquin; patient continues to have difficulty getting out of bed; we will consult PT/OT for evaluation and determination of discharge planning between home health care versus prison facility 02/23/2020 Patient is seen and evaluated resting comfortably in bed; denies any complaint of chest pain or shortness of breath Vital signs are reviewed and are stable with a temperature of 98.7, pulse 67, respiration 18 and blood pressure 146/71 Lab review shows WBC in the normal range at 7.9, hemoglobin 11.3, sodium of 135 which is improved from a sodium of 128 and B UN/creatinine of 6/0.5; blood sugars are being monitored and remained elevated; we will plan to increase Levemir up to 25 units from 20 units daily at bedtime; continue to monitor Accu- Cheks; urine culture is positive for gram negative bacilli, final culture and sensitivity still pending; patient remains on IV Levaquin PT/OT is consulted for evaluation for possible discharge to skilled rehab Objective - Vital Signs Vital signs: Vital Signs Temp 98.1 F 02/23/20 07:22 Pulse 64 02/23/20 07:43 Resp 20 02/23/20 07:43 BP 165/82 02/23/20 07:22 Pulse Ox 95 02/23/20 07:22 Intake & Output 02/22/20 02/23/20 02/23/20 18:59 06:59 18:59 Intake Total 890 100 460 Output Total 300 400 Balance 590 100 60 Intake: Intake, IV Titration 890 100 Amount Levofloxacin 750Mg-D5w 250 100 Pmx 750 mg In Dextrose/ Water 1 150ml.bag @ 100 mls/hr IVPB Q24H [facility] Rx#: [id number] Sodium Chloride 0.9% 1, 640 000 ml @ 80 mls/hr IV . [id number] [facility] Rx#:[id number] Oral 100 360 Output: Urine 300 300 Stool 100 Other: Voiding Method Bedside Commode Bedside Commode Bedside Commode Incontinent Incontinent Incontinent # Voids 2 2 1 - Exam General: well nourished, well developed, NAD. Vitals reviewed Eyes: PERRL, EOMI, conjunctiva normal HENT: normocephalic, mucus membranes moist Neck: supple, no JVD Lungs: normal respiratory effort, no wheezes or rales CV: Regular rate and rhythm, no murmur. Peripheral pulses 2+ Abdomen: soft, nondistended, no organomegaly. Tenderness L rib area Lymph: no cervical or axillary LAD Skin: warm and dry. Neuro: A&Ox3, normal mood and affect - Labs CBC & Chem 7: 02/23/20 07:22 02/23/20 07:22 Labs: Abnormal Lab Results - Last 24 Hours (Table) 02/22/20 02/22/20 02/23/20 Range/Units 11:29 20:19 06:21 Hgb (11.4-16.0) gm/dL Sodium (137-145) mmol/L BUN (7-17) mg/dL Creatinine (0.52-1.04) mg/dL Glucose (74-99) mg/dL POC Glucose (mg/dL) 324 H 272 H 202 H (75-99) mg/dL Calcium (8.4-10.2) mg/dL 02/23/20 02/23/20 Range/Units 07:22 07:22 Hgb 11.3 L (11.4-16.0) gm/dL Sodium 135 L (137-145) mmol/L BUN 6 L (7-17) mg/dL Creatinine 0.50 L (0.52-1.04) mg/dL Glucose 176 H (74-99) mg/dL POC Glucose (mg/dL) (75-99) mg/dL Calcium 8.0 L (8.4-10.2) mg/dL Microbiology - Last 24 Hours (Table) 02/20/20 13:14 Urine Culture - Final Urine,Clean Catch Klebsiella pneumoniae Assessment and Plan Assessment: 1. Complicated UTI; Levaquin 500 milligrams IV daily; urine culture positive for gram-negative bacilli; await final culture and sensitivity results 2. Hyponatremia - Slowly dissolving; patient remains on IV fluids in form of normal saline at a rate of 80 mL an hour 3. Gait disturbance/debility; PT/OT consulted for discharge. 3. Leukocytosis; secondary to UTI; patient remains on IV antibiotics; we'll continue to monitor CBC 4. Diabetes mellitus; monitor Accu-Cheks before meals and at bedtime with insulin sliding scale; continue with home schedule of NovoLog 14 units before meals breakfast, 18 units before meals lunch and 24 units before meals supper; Levemir 20 units subcu daily at bedtime 5. Hypertension; lisinopril 40 mg daily, metoprolol 50 mg by mouth daily at bedtime 6. Hyperlipidemia; Lipitor 40 mg by mouth daily at bedtime 7. Adrenal insufficiency; continue with home schedule of hydrocortisone CODE STATUS; full code
[2020-02-23 16:26] LABS: Glucose,Whole Blood 156 mg/dL (75-99)
[2020-02-23 20:08] LABS: Glucose,Whole Blood 264 mg/dL (75-99)
[2020-02-23] MEDS: ATORVASTATIN 40 MG TAB PO SCH (20:08)
[2020-02-23] MEDS: METOPROLOL SUCCINATE (ER) 50 MG TAB.ER.24H PO SCH (20:08)
[2020-02-23] MEDS: MELATONIN 5 MG TABLET PO PRN (20:31)
[2020-02-23] MEDS: INSULIN DETEMIR (LEVEMIR) 100 UNIT/ML SYR SQ SCH (21:30)
[2020-02-24] MEDS: HYDROcodone/APAP 10-325MG 1 EACH TAB PO PRN ×5 (02:50→21:38)
[2020-02-24] MEDS: BUTALB/APAP/CAFF 50-325-40MG TAB PO PRN ×3 (05:39→18:21)
[2020-02-24 06:08] LABS: Glucose,Whole Blood 145 mg/dL (75-99)
[2020-02-24 06:10] LABS: African American GFR (CKD) >90 (>60 ml/min/1.73 sqM); Anion Gap 5 mmol/L; Blood Urea Nitrogen 7 mg/dL (7-17); Calcium 8.3 mg/dL (8.4-10.2); Carbon Dioxide 31 mmol/L (22-30); Chloride 99 mmol/L (98-107); Glucose 149 mg/dL (74-99); Non-African American GFR(CKD) >90 (>60 ml/min/1.73 sqM); Potassium 4.3 mmol/L (3.5-5.1); Sodium 135 mmol/L (137-145)
[2020-02-24] MEDS: HYDROCORTISONE 10 MG TAB PO SCH ×3 (07:51→21:39)
[2020-02-24] MEDS: lisinopriL 20 MG TAB PO SCH (07:52)
[2020-02-24] MEDS: INSULIN ASPART (NovoLOG) 100 UNIT/ML VIAL SQ SCH ×4 (07:52→18:11)
[2020-02-24] MEDS: CHOLECALCIFEROL 1,000 UNIT TAB PO SCH (07:54)
[2020-02-24] MEDS: SODIUM CHLORIDE 0.9% 1,000 ML IV SCH ×2 (07:57→21:36)
[2020-02-24] MEDS: SPIRONOLACTONE 25 MG TAB PO SCH (08:23)
[2020-02-24] MEDS: FOLIC ACID 1 MG TAB PO SCH (08:24)
[2020-02-24] MEDS: ASPIRIN 81 MG PO SCH (08:24)
[2020-02-24] MEDS: PANTOPRAZOLE 40 MG TABLET PO SCH ×2 (08:24→21:38)
[2020-02-24] MEDS: MAGNESIUM OXIDE 400 MG TAB PO SCH (08:24)
[2020-02-24] MEDS: CLOPIDOGREL 75 MG TAB PO SCH (08:24)
[2020-02-24] MEDS: VENLAFAXINE HCL ER 75 MG CAP PO SCH (08:25)
[2020-02-24] MEDS: LEVOFLOXACIN 750MG-D5W PMX 750 MG in DEXTROSE/WATER 1 150ML.BAG IVPB SCH (08:26)
[2020-02-24] MEDS: CHOLESTYRAMINE (WITH SUGAR) 4 GM PACKET PO SCH ×3 (10:11→21:39)
[2020-02-24 11:37] LABS: Glucose,Whole Blood 77 mg/dL (75-99)
--- NOTE | 2020-02-24 15:43 | PN ---
PROGRESS NOTE DATE OF SERVICE: 02/24/2020 I am covering for Dr. Gonsales. HISTORY: This 69-year-old woman with a past medical history of multiple medical problems including recurrent UTI, adrenal insufficiency, chronic migrainosus, presented with complicated UTI as well as hyponatremia. The culture showed Klebsiella pneumoniae which was resistant to nitrofurantoin and ampicillin. The patient was placed on Levaquin at this time. The patient is being closely monitored. Patient also had hyponatremia, present on admission, sodium was 128, currently is 135. The patient also complains of some eye puffiness, left more than the right. There is no history of fever, rigors. No headache, loss of consciousness, seizures. PAST MEDICAL HISTORY: Reviewed. REVIEW OF SYSTEMS: CARDIOVASCULAR SYSTEM: No angina. RESPIRATORY: As mentioned. GI: As mentioned earlier. : As noted. NERVOUS SYSTEM: No numbness or weakness. CURRENT MEDICATIONS: Reviewed, include Tylenol, Fioricet, [place], aspirin, Lipitor, vitamin D3, Questran, Plavix, folic acid, Cortef, NovoLog Levemir, Levaquin, magnesium oxide, melatonin, Reglan, Toprol, aldactone, Effexor XR. PHYSICAL EXAMINATION: Patient is alert and oriented x3. Pulse 64, blood pressure 191/83, respirations 17, temperature 98.4, pulse ox 94% on room air skin. HEENT: Conjunctivae normal. NECK: Supple. CARDIOVASCULAR: S1 and S2. RESPIRATORY: Breath sounds muffled, diminished at the bases. Scattered rhonchi and crackles. ABDOMEN: Soft, obese, nontender. LEGS: No edema. NERVOUS SYSTEM: Diffusely weak. LABS: Lab investigations at this time show WBC 7.2, hemoglobin 11.2, sodium 135. ASSESSMENT: 1. Complicated UTI with Klebsiella, on Levaquin. 2. Hyponatremia possibly hypovolemic. 3. Gait dysfunction and gait disability. 4. Leukocytosis. 5. Diabetes mellitus type 2. 6. Hypertension. 7. Hyperlipidemia. 8. Adrenal insufficiency. 9. Increased WBC, improved. 10.Anemia, normocytic anemia of chronic disease. 11.History of DVT. 12.History of diabetes mellitus. 13.History of fibromyalgia. 14.Hypertension. 15.Hyperlipidemia. 16.History of DJD. 17.Sleep apnea. 18.History of sepsis and pyelonephritis. 19.History of hyperparathyroidism and surgery. 20.History of DVT. 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 22.History of back surgery and DJD. 23.Depression. 24.Full code. RECOMMENDATIONS AND DISCUSSION: This 69-year-old woman who presented with multiple complex medical issues, we will monitor the patient closely, continue the current management and continue the IV antibiotics. Continue the rest of the medications. DVT prophylaxis. Otherwise, monitor blood sugars closely. Guarded prognosis because of multiple complex medical issues. Further recommendations to follow. MMODL / IJN: [id number] /
[2020-02-24] MEDS: HEPARIN SODIUM,PORCINE 5,000 UNIT/ML 1 ML VIAL SQ SCH ×2 (16:05→21:38)
[2020-02-24 16:40] LABS: Glucose,Whole Blood 265 mg/dL (75-99)
[2020-02-24] MEDS: ATORVASTATIN 40 MG TAB PO SCH (21:37)
[2020-02-24] MEDS: METOPROLOL SUCCINATE (ER) 50 MG TAB.ER.24H PO SCH (21:37)
[2020-02-24 21:45] LABS: Glucose,Whole Blood 224 mg/dL (75-99)
[2020-02-24] MEDS: INSULIN DETEMIR (LEVEMIR) 100 UNIT/ML SYR SQ SCH (21:45)
[2020-02-24] MEDS: MELATONIN 5 MG TABLET PO PRN (22:10)
[2020-02-25] MEDS: BUTALB/APAP/CAFF 50-325-40MG TAB PO PRN ×4 (00:50→21:13)
[2020-02-25] MEDS: HYDROcodone/APAP 10-325MG 1 EACH TAB PO PRN ×5 (03:24→20:32)
[2020-02-25 06:22] LABS: Glucose,Whole Blood 117 mg/dL (75-99)
[2020-02-25 06:24] LABS: Basophils # (A) 0.1 k/uL (0-0.2); Basophils % (A) 1 %; Eosinophils # (A) 0.3 k/uL (0-0.7); Eosinophils % (A) 4 %; HCT 32.3 % (34.0-46.0); HGB 10.6 gm/dL (11.4-16.0); Lymphocytes # (A) 1.9 k/uL (1.0-4.8); Lymphocytes % (A) 29 %; MCH 28.8 pg (25.0-35.0); MCHC 32.7 g/dL (31.0-37.0); MCV 88.2 fL (80.0-100.0); Mean Platelet Volume 7.4; Monocytes # (A) 0.4 k/uL (0-1.0); Monocytes % (A) 6 %; Neutrophils # (A) 3.8 k/uL (1.3-7.7); Neutrophils % (A) 58 %; Platelet Count 259 k/uL (150-450); RBC 3.67 m/uL (3.80-5.40); RDW 14.1 % (11.5-15.5); WBC 6.6 k/uL (3.8-10.6)
[2020-02-25 06:53] LABS: African American GFR (CKD) >90 (>60 ml/min/1.73 sqM); Anion Gap 6 mmol/L; Blood Urea Nitrogen 7 mg/dL (7-17); Calcium 8.4 mg/dL (8.4-10.2); Carbon Dioxide 31 mmol/L (22-30); Chloride 97 mmol/L (98-107); Glucose 127 mg/dL (74-99); Non-African American GFR(CKD) >90 (>60 ml/min/1.73 sqM); Potassium 3.6 mmol/L (3.5-5.1); Sodium 134 mmol/L (137-145)
[2020-02-25] MEDS: INSULIN ASPART (NovoLOG) 100 UNIT/ML VIAL SQ SCH ×3 (07:46→16:57)
[2020-02-25] MEDS: HYDROCORTISONE 10 MG TAB PO SCH ×3 (07:46→21:09)
[2020-02-25] MEDS: FOLIC ACID 1 MG TAB PO SCH (07:47)
[2020-02-25] MEDS: PANTOPRAZOLE 40 MG TABLET PO SCH ×2 (07:47→20:32)
[2020-02-25] MEDS: VENLAFAXINE HCL ER 75 MG CAP PO SCH (07:47)
[2020-02-25] MEDS: CLOPIDOGREL 75 MG TAB PO SCH (07:47)
[2020-02-25] MEDS: MAGNESIUM OXIDE 400 MG TAB PO SCH (07:47)
[2020-02-25] MEDS: ASPIRIN 81 MG PO SCH (07:47)
[2020-02-25] MEDS: SPIRONOLACTONE 25 MG TAB PO SCH (07:47)
[2020-02-25] MEDS: SODIUM CHLORIDE 0.9% 1,000 ML IV SCH ×2 (07:48→20:33)
[2020-02-25] MEDS: HEPARIN SODIUM,PORCINE 5,000 UNIT/ML 1 ML VIAL SQ SCH ×2 (07:48→20:33)
[2020-02-25] MEDS: CHOLECALCIFEROL 1,000 UNIT TAB PO SCH (07:48)
[2020-02-25] MEDS: LEVOFLOXACIN 750MG-D5W PMX 750 MG in DEXTROSE/WATER 1 150ML.BAG IVPB SCH (07:48)
[2020-02-25] MEDS: lisinopriL 20 MG TAB PO SCH (07:48)
[2020-02-25] MEDS: CHOLESTYRAMINE (WITH SUGAR) 4 GM PACKET PO SCH ×3 (07:49→16:04)
[2020-02-25] MEDS ORDERED: Potassium Replacement Protocol 1 EACH MISC MISCELLANE PRN (08:49)
--- NOTE | 2020-02-25 09:56 | P.DS ---
Providers Date of admission: 02/23/20 02:38 Expected date of discharge: 02/25/20 Attending physician: Andrew Gonsales MD Primary care physician: Andrew Gonsales MD Hospital Course: Final Diagnoses: (1) Complicated UTI (urinary tract infection) Current Visit: Yes Status: Acute Code(s): N39.0 - URINARY TRACT INFECTION, SITE NOT SPECIFIED SNOMED Code(s): 19949981 (2) At risk for readmission to hospital Current Visit: No Status: Acute Code(s): Z91.89 - OTH PERSONAL RISK FACTORS, NOT ELSEWHERE CLASSIFIED SNOMED Code(s): 2000205779050 (3) Leukocytosis Current Visit: No Status: Acute Code(s): D72.829 - ELEVATED WHITE BLOOD CELL COUNT, UNSPECIFIED SNOMED Code(s): 555366513 (4) Migraine Current Visit: No Status: Acute Code(s): G43.909 - MIGRAINE, UNSP, NOT INTRACTABLE, WITHOUT STATUS MIGRAINOSUS SNOMED Code(s): 53874728 (5) Nausea & vomiting Current Visit: No Status: Acute Code(s): R11.2 - NAUSEA WITH VOMITING, UNSPECIFIED SNOMED Code(s): 70329283 (6) Adrenal insufficiency Current Visit: No Status: Chronic Code(s): E27.40 - UNSPECIFIED ADRENOCORTICAL INSUFFICIENCY SNOMED Code(s): 797533063 (7) DM type 2 (diabetes mellitus, type 2) Current Visit: No Status: Chronic Code(s): E11.9 - TYPE 2 DIABETES MELLITUS WITHOUT COMPLICATIONS SNOMED Code(s): 88944237 (8) Morbid obesity Current Visit: No Status: Chronic Code(s): E66.01 - MORBID (SEVERE) OBESITY DUE TO EXCESS CALORIES SNOMED Code(s): 186692289 (9) chest wall pain, home [place] increased to 10 mg every 4 hours when necessary initially, at DC weaning down to q6h prn with further weaning OP Hospital course: Melissa Pena is a 69 yo F with PMH of recurrent UTI, T2DM, adrenal ins ufficiency, chronic migraine who presented to the ED complaining of abdominal pain. She was just recently admitted a few days ago with chest pain and discharged on 02/18. During this admission she was noted to have a UTI as well which was empirically treated with macrobid. She complains of nausea as well which has worsened since she left the hospital. She also complains of severe migraine as well as L sided chest wall and rib pain she attributes to a fall a few days ago. Her urine culture from last admission did show enterococcus with intermediate sensitivity to macrobid. On admission her vitals were stable, WBC 13k. Maintained on IV Levaquin with significant clinical improvement. Evaluated by a physical therapy with subacute rehab recommended. Patient in agreement with subacute rehab at this time. Patient is being discharged to subacute rehab. today in a stable condition with guarded prognosis. Microbiology 02/20/20 13:14 Urine,Clean Catch Urine Culture - Final Klebsiella pneumoniae The impression and plan of care has been dictated as directed. : I performed a history and examination of this patient, discussed the same with the dictator. I agree with the dictator's note ,documented as a scribe. Any additional findings or plans will be noted. Patient Condition at Discharge: Stable Plan - Discharge Summary Discharge Rx Participant: Yes New Discharge Prescriptions: New Levofloxacin [Levaquin] 750 mg PO DAILY 5 Days #5 tab Insulin Detemir (Levemir) [Levemir] 25 unit SQ HS@2200 syr INSULIN ASPART (NovoLOG) [NovoLOG (formulary)] 14 unit SQ AC-BRKFST vial INSULIN ASPART (NovoLOG) [NovoLOG (formulary)] 24 unit SQ AC-SUPPER vial INSULIN ASPART (NovoLOG) [NovoLOG (formulary)] 18 unit SQ AC-LUNCH vial Continue Cholecalciferol [Vitamin D3 (25 Mcg = 1000 Iu)] 3,000 unit PO DAILY@0700 Metoprolol Succinate (ER) [Toprol XL] 50 mg PO HS Meclizine [Antivert] 25 mg PO QID PRN PRN Reason: Vertigo Hydrocortisone [Cortef] 15 mg PO AC-BRKFST Hydrocortisone [Cortef] 5 mg PO HS Aspirin 81 mg PO DAILY #0 Glucagon Emergency Kit 1 mg IM ONCE PRN PRN Reason: Hypoglycemia Ferrous Sulfate [Iron (65 MG Elemental)] 325 mg PO DAILY Vitamin B-Complex Drops 1 ml PO BID Thiamine [Vitamin B-1] 100 mg PO DAILY Folic Acid 0.4 mg PO DAILY Multivitamins, Thera Liquid [Theragran Liquid (formulary)] 30 ml PO DAILY L.acidoph,Paracasei, B.lactis [Probiotic] 2 cap PO BID Melatonin 5 mg PO HS PRN PRN Reason: Insomnia Cranberry 300mg 300 mg PO BID Potassium 99 mg PO DAILY Atorvastatin [Lipitor] 40 mg PO HS #30 tab Pantoprazole [Protonix] 40 mg PO BID Hydrocortisone [Cortef] 10 mg PO AC-LUNCH Venlafaxine HCl [Effexor XR] 75 mg PO DAILY Magnesium Oxide [Mag-Ox] 400 mg PO DAILY Promethazine 6.25MG/5Ml [Phenergan Syrup] 6.25 mg PO Q6H PRN PRN Reason: Cough Ondansetron HCl [Zofran] 4 mg PO Q6H PRN PRN Reason: Nausea And Vomiting Acetaminophen Tab [Tylenol] 1,000 mg PO Q6HR PRN PRN Reason: Migraine Headache Butalb/APAP/Caff 50-325-40Mg [Fioricet 50-325-40] 1 tab PO QID PRN PRN Reason: Migraine Headache Clopidogrel [Plavix] 75 mg PO DAILY Spironolactone [Aldactone] 50 mg PO DAILY Estrogens, Conjugated Cream [Premarin Cream] 1 applicator VAGINAL WESA Cholestyramine (with Sugar) [Questran Packet] 4 gm PO TID BETWEEN MEALS #30 packet Metoclopramide [Reglan] 5 mg PO TID PRN #30 tab PRN Reason: Nausea lisinopriL [Zestril] 40 mg PO W/BRKFST #60 tab Changed HYDROcodone/APAP 10-325MG [[place] 10-325] 1 tab PO Q6H PRN #12 tab PRN Reason: Pain Discontinued Insulin Aspart [NovoLOG Flexpen] See Protocol SQ AC-TID Insulin Glargine,Hum.rec.anlog [Lantus Solostar] 20 unit SQ HS@2200 #0 Nitrofurantoin Monohyd/M-Cryst [Macrobid] 100 mg PO BID #60 cap Discharge Medication List Cholecalciferol [Vitamin D3 (25 Mcg = 1000 Iu)] 3,000 unit PO DAILY@0700 12/01/14 [History] Metoprolol Succinate (ER) [Toprol XL] 50 mg PO HS 07/06/17 [History] Meclizine [Antivert] 25 mg PO QID PRN 11/26/17 [History] Hydrocortisone [Cortef] 15 mg PO AC-BRKFST 05/18/18 [History] Hydrocortisone [Cortef] 5 mg PO HS 06/26/18 [History] Aspirin 81 mg PO DAILY #0 07/02/18 [Rx] Glucagon Emergency Kit 1 mg IM ONCE PRN 08/12/18 [History] Cranberry 300mg 300 mg PO BID 10/08/18 [History] Ferrous Sulfate [Iron (65 MG Elemental)] 325 mg PO DAILY 10/08/18 [History] Folic Acid 0.4 mg PO DAILY 10/08/18 [History] L.acidoph,Paracasei, B.lactis [Probiotic] 2 cap PO BID 10/08/18 [History] Melatonin 5 mg PO HS PRN 10/08/18 [History] Multivitamins, Thera Liquid [Theragran Liquid (formulary)] 30 ml PO DAILY 10/08/18 [History] Potassium 99 mg PO DAILY 10/08/18 [History] Thiamine [Vitamin B-1] 100 mg PO DAILY 10/08/18 [History] Vitamin B-Complex Drops 1 ml PO BID 10/08/18 [History] Atorvastatin [Lipitor] 40 mg PO HS #30 tab 11/16/18 [Rx] Pantoprazole [Protonix] 40 mg PO BID 01/29/19 [History] Hydrocortisone [Cortef] 10 mg PO AC-LUNCH 08/30/19 [History] Venlafaxine HCl [Effexor XR] 75 mg PO DAILY 11/08/19 [History] Acetaminophen Tab [Tylenol] 1,000 mg PO Q6HR PRN 12/06/19 [History] Butalb/APAP/Caff 50-325-40Mg [Fioricet 50-325-40] 1 tab PO QID PRN 12/06/19 [History] Clopidogrel [Plavix] 75 mg PO DAILY 12/06/19 [History] Magnesium Oxide [Mag-Ox] 400 mg PO DAILY 12/06/19 [History] Ondansetron HCl [Zofran] 4 mg PO Q6H PRN 12/06/19 [History] Promethazine 6.25MG/5Ml [Phenergan Syrup] 6.25 mg PO Q6H PRN 12/06/19 [History] Spironolactone [Aldactone] 50 mg PO DAILY 12/30/19 [History] Estrogens, Conjugated Cream [Premarin Cream] 1 applicator VAGINAL WESA 02/16/20 [History] Cholestyramine (with Sugar) [Questran Packet] 4 gm PO TID BETWEEN MEALS #30 packet 02/19/20 [Rx] Metoclopramide [Reglan] 5 mg PO TID PRN #30 tab 02/19/20 [Rx] lisinopriL [Zestril] 40 mg PO W/BRKFST #60 tab 02/19/20 [Rx] HYDROcodone/APAP 10-325MG [[place] 10-325] 1 tab PO Q6H PRN #12 tab 02/25/20 [Rx] INSULIN ASPART (NovoLOG) [NovoLOG (formulary)] 14 unit SQ AC-BRKFST vial 02/25/20 [Rx] INSULIN ASPART (NovoLOG) [NovoLOG (formulary)] 18 unit SQ AC-LUNCH vial 02/25/20 [Rx] INSULIN ASPART (NovoLOG) [NovoLOG (formulary)] 24 unit SQ AC-SUPPER vial 02/25/20 [Rx] Insulin Detemir (Levemir) [Levemir] 25 unit SQ HS@2200 syr 02/25/20 [Rx] Levofloxacin [Levaquin] 750 mg PO DAILY 5 Days #5 tab 02/25/20 [Rx] Follow up Appointment(s)/Referral(s): Andrew Gonsales MD [Primary Care Provider] - 1 Week (After DC from subacute rehab) Activity/Diet/Wound Care/Special Instructions: ECF: CBC, BMP in 3 days
[2020-02-25] MEDS: ONDANSETRON 4 MG/2 ML VIAL IVP PRN (10:43)
[2020-02-25 11:45] LABS: Glucose,Whole Blood 149 mg/dL (75-99)
[2020-02-25 16:40] LABS: Glucose,Whole Blood 290 mg/dL (75-99)
[2020-02-25] MEDS: ATORVASTATIN 40 MG TAB PO SCH (20:32)
[2020-02-25 20:33] LABS: Glucose,Whole Blood 336 mg/dL (75-99)
[2020-02-25] MEDS: INSULIN DETEMIR (LEVEMIR) 100 UNIT/ML SYR SQ SCH (20:33)
[2020-02-25] MEDS: METOPROLOL SUCCINATE (ER) 50 MG TAB.ER.24H PO SCH (20:33)
[2020-02-26] MEDS: HYDROcodone/APAP 10-325MG 1 EACH TAB PO PRN ×4 (00:26→11:57)
[2020-02-26] MEDS: BUTALB/APAP/CAFF 50-325-40MG TAB PO PRN (05:51)
[2020-02-26 06:05] LABS: Basophils % (A) 1 %; Eosinophils # (A) 0.3 k/uL (0-0.7); Eosinophils % (A) 5 %; HCT 33.4 % (34.0-46.0); HGB 10.7 gm/dL (11.4-16.0); Lymphocytes # (A) 1.7 k/uL (1.0-4.8); Lymphocytes % (A) 29 %; MCH 28.5 pg (25.0-35.0); MCHC 32.1 g/dL (31.0-37.0); MCV 88.9 fL (80.0-100.0); Mean Platelet Volume 7.3; Monocytes # (A) 0.4 k/uL (0-1.0); Monocytes % (A) 6 %; Neutrophils # (A) 3.4 k/uL (1.3-7.7); Neutrophils % (A) 57 %; Platelet Count 274 k/uL (150-450); RBC 3.75 m/uL (3.80-5.40); RDW 14.1 % (11.5-15.5)
[2020-02-26 06:17] LABS: African American GFR (CKD) >90 (>60 ml/min/1.73 sqM); Anion Gap 4 mmol/L; Blood Urea Nitrogen 10 mg/dL (7-17); Calcium 8.5 mg/dL (8.4-10.2); Carbon Dioxide 32 mmol/L (22-30); Chloride 97 mmol/L (98-107); Glucose 125 mg/dL (74-99); Non-African American GFR(CKD) >90 (>60 ml/min/1.73 sqM); Sodium 133 mmol/L (137-145)
[2020-02-26 06:35] LABS: Glucose,Whole Blood 106 mg/dL (75-99)
[2020-02-26] MEDS: LEVOFLOXACIN 750MG-D5W PMX 750 MG in DEXTROSE/WATER 1 150ML.BAG IVPB SCH (07:50)
[2020-02-26] MEDS: CHOLECALCIFEROL 1,000 UNIT TAB PO SCH (07:51)
[2020-02-26] MEDS: HYDROCORTISONE 10 MG TAB PO SCH ×2 (07:51→11:57)
[2020-02-26] MEDS: PANTOPRAZOLE 40 MG TABLET PO SCH (07:51)
[2020-02-26] MEDS: FOLIC ACID 1 MG TAB PO SCH (07:51)
[2020-02-26] MEDS: CLOPIDOGREL 75 MG TAB PO SCH (07:51)
[2020-02-26] MEDS: lisinopriL 20 MG TAB PO SCH (07:52)
[2020-02-26] MEDS: VENLAFAXINE HCL ER 75 MG CAP PO SCH (07:52)
[2020-02-26] MEDS: HEPARIN SODIUM,PORCINE 5,000 UNIT/ML 1 ML VIAL SQ SCH (07:52)
[2020-02-26] MEDS: MAGNESIUM OXIDE 400 MG TAB PO SCH (07:52)
[2020-02-26] MEDS: SPIRONOLACTONE 25 MG TAB PO SCH (07:52)
[2020-02-26] MEDS: ASPIRIN 81 MG PO SCH (07:52)
[2020-02-26] MEDS: SODIUM CHLORIDE 0.9% 1,000 ML IV SCH (07:52)
[2020-02-26] MEDS: CHOLESTYRAMINE (WITH SUGAR) 4 GM PACKET PO SCH (07:52)
[2020-02-26] MEDS: INSULIN ASPART (NovoLOG) 100 UNIT/ML VIAL SQ SCH ×2 (07:53→12:24)
[2020-02-26 08:00] VITALS: BP 173/84; PULSE 68; RESP 14; TEMP 97.7
[2020-02-26 12:04] LABS: Glucose,Whole Blood 207 mg/dL (75-99)
== END 2020-02-26 13:39 | DRG 690 ==
LOC: EC 12:48 → 1SOBS 16:03 → OBSVTOIN 02-23 02:38
PROVIDERS: ADMIT Family Medicine; ATTEND Family Medicine
DX: N39.0 Urinary tract infection, site not specified (principal); E27.40 Unspecified adrenocortical insufficiency; E87.1 Hypo-osmolality and hyponatremia; E66.01 Morbid (severe) obesity due to excess calories; E78.5 Hyperlipidemia, unspecified; F32.9 Major depressive disorder, single episode, unspecified; G43.909 Migraine, unspecified, not intractable, without status migrainosus; I10 Essential (primary) hypertension; M19.90 Unspecified osteoarthritis, unspecified site; Z20.828 Contact with and (suspected) exposure to other viral communicable diseases; E11.9 Type 2 diabetes mellitus without complications; G47.30 Sleep apnea, unspecified; R07.89 Other chest pain; R53.81 Other malaise; B96.1 Klebsiella pneumoniae [K. pneumoniae] as the cause of diseases classified elsewhere; R26.9 Unspecified abnormalities of gait and mobility; D63.8 Anemia in other chronic diseases classified elsewhere; M79.7 Fibromyalgia; R11.2 Nausea with vomiting, unspecified; Z68.27 Body mass index [BMI] 27.0-27.9, adult; Z79.4 Long term (current) use of insulin; Z79.02 Long term (current) use of antithrombotics/antiplatelets; Z79.899 Other long term (current) drug therapy; Z86.718 Personal history of other venous thrombosis and embolism; Z79.82 Long term (current) use of aspirin; Z79.52 Long term (current) use of systemic steroids; Z88.1 Allergy status to other antibiotic agents; Z88.5 Allergy status to narcotic agent; Z88.0 Allergy status to penicillin; Z88.2 Allergy status to sulfonamides; Z88.8 Allergy status to other drugs, medicaments and biological substances; Z86.19 Personal history of other infectious and parasitic diseases; Z87.440 Personal history of urinary (tract) infections; Z87.442 Personal history of urinary calculi; Z87.01 Personal history of pneumonia (recurrent); Z89.421 Acquired absence of other right toe(s); Z86.14 Personal history of Methicillin resistant Staphylococcus aureus infection; Z87.81 Personal history of (healed) traumatic fracture; Z90.49 Acquired absence of other specified parts of digestive tract; Z98.890 Other specified postprocedural states; Z90.710 Acquired absence of both cervix and uterus; Z98.1 Arthrodesis status; Z98.42 Cataract extraction status, left eye; Z98.41 Cataract extraction status, right eye; Z83.3 Family history of diabetes mellitus; Z82.49 Family history of ischemic heart disease and other diseases of the circulatory system; Z80.49 Family history of malignant neoplasm of other genital organs; Z83.6 Family history of other diseases of the respiratory system
CPT/HCPCS: 36415; 80048; 80053; 81001; 83690; 85025; 87077; 87086; 87186; 96361; 96365; 96375; 99285

== ENCOUNTER 2020-03-16 18:56 | Inpatient (IN) | payer MEDICARE, BC ==
[2020-03-16] MEDS ORDERED: ACETAMINOPHEN TAB 500 MG TAB PO STA (19:16)
--- NOTE | 2020-03-16 19:40 | ED ---
General Adult HPI - General Chief complaint: Urogenital Stated complaint: UTI, Sepsis Time Seen by Provider: 03/16/20 18:58 Source: patient, RN/MD, RN notes reviewed, old records reviewed Mode of arrival: EMS Limitations: no limitations - History of Present Illness Initial comments: Patient is a pleasant 69-year-old female presenting to the emergency department as a transfer from [place] emergency department. Patient was seen there diagnosed with urinary tract infection and sepsis. Cultures were done. Patient was started on vancomycin and cefepime. Patient did receive fluid bolus. Patient did have elevated white blood cell count of 15 and lactic acid of 4.2. Patient does complain of some discomfort of her side. Patient also reportedly had an episode of dysarthria early in the morning and computed tomography scan was done. Computed tomography scan doesn't show lacunar infarct. Patient was tachycardic with heart rate 1:30 That decreased to 120. Patient does have history of previous urinary tract infections - Related Data Home Medications Medication Instructions Recorded Confirmed Cholecalciferol [Vitamin D3 (25 3,000 unit PO DAILY@0700 12/01/14 02/20/20 Mcg = 1000 Iu)] Metoprolol Succinate (ER) [Toprol 50 mg PO HS 07/06/17 02/20/20 XL] Meclizine [Antivert] 25 mg PO QID PRN 11/26/17 02/20/20 Hydrocortisone [Cortef] 15 mg PO AC-BRKFST 05/18/18 02/20/20 Hydrocortisone [Cortef] 5 mg PO HS 06/26/18 02/20/20 Glucagon Emergency Kit 1 mg IM ONCE PRN 08/12/18 02/20/20 Cranberry 300mg 300 mg PO BID 10/08/18 02/20/20 Ferrous Sulfate [Iron (65 MG 325 mg PO DAILY 10/08/18 02/20/20 Elemental)] Folic Acid 0.4 mg PO DAILY 10/08/18 02/20/20 L.acidoph,Paracasei, B.lactis 2 cap PO BID 10/08/18 02/20/20 [Probiotic] Melatonin 5 mg PO HS PRN 10/08/18 02/20/20 Multivitamins, Thera Liquid 30 ml PO DAILY 10/08/18 02/20/20 [Theragran Liquid (formulary)] Potassium 99 mg PO DAILY 10/08/18 02/20/20 Thiamine [Vitamin B-1] 100 mg PO DAILY 10/08/18 02/20/20 Vitamin B-Complex Drops 1 ml PO BID 10/08/18 02/20/20 Pantoprazole [Protonix] 40 mg PO BID 01/29/19 02/20/20 Hydrocortisone [Cortef] 10 mg PO AC-LUNCH 08/30/19 02/20/20 Venlafaxine HCl [Effexor XR] 75 mg PO DAILY 11/08/19 02/20/20 Acetaminophen Tab [Tylenol] 1,000 mg PO Q6HR PRN 12/06/19 02/20/20 Clopidogrel [Plavix] 75 mg PO DAILY 12/06/19 02/20/20 Magnesium Oxide [Mag-Ox] 400 mg PO DAILY 12/06/19 02/20/20 Ondansetron HCl [Zofran] 4 mg PO Q6H PRN 12/06/19 02/20/20 Promethazine 6.25MG/5Ml [Phenergan 6.25 mg PO Q6H PRN 12/06/19 02/20/20 Syrup] Spironolactone [Aldactone] 50 mg PO DAILY 12/30/19 02/20/20 Estrogens, Conjugated Cream 1 applicator VAGINAL WESA 02/16/20 02/20/20 [Premarin Cream] Previous Rx's Medication Instructions Recorded Aspirin 81 mg PO DAILY #0 07/02/18 Atorvastatin [Lipitor] 40 mg PO HS #30 tab 11/16/18 Cholestyramine (with Sugar) 4 gm PO TID BETWEEN MEALS #30 02/19/20 [Questran Packet] packet Metoclopramide [Reglan] 5 mg PO TID PRN #30 tab 02/19/20 lisinopriL [Zestril] 40 mg PO W/BRKFST #60 tab 02/19/20 HYDROcodone/APAP 10-325MG [[place] 1 tab PO Q6H PRN #12 tab 02/25/20 10-325] INSULIN ASPART (NovoLOG) [NovoLOG 14 unit SQ AC-BRKFST vial 02/25/20 (formulary)] INSULIN ASPART (NovoLOG) [NovoLOG 18 unit SQ AC-LUNCH vial 02/25/20 (formulary)] INSULIN ASPART (NovoLOG) [NovoLOG 24 unit SQ AC-SUPPER vial 02/25/20 (formulary)] Insulin Detemir (Levemir) [Levemir] 25 unit SQ HS@2200 syr 02/25/20 Levofloxacin [Levaquin] 750 mg PO DAILY 5 Days #5 tab 02/25/20 Butalb/APAP/Caff 50-325-40Mg 1 tab PO QID PRN #12 tab 02/26/20 [Fioricet 50-325-40] Allergies Allergy/AdvReac Type Severity Reaction Status Date / Time butorphanol tartrate Allergy BLISTERS Verified 03/16/20 19:14 [From Stadol] IN MOUTH ceftriaxone [From Rocephin] Allergy Unknown Verified 03/16/20 19:14 clarithromycin [From Biaxin] Allergy Rash/Hives Verified 03/16/20 19:14 codeine Allergy Rash/Hives Verified 03/16/20 19:14 ergotamine tartrate Allergy Unknown Verified 03/16/20 19:14 [From Cafergot] erythromycin base Allergy RASH, GI Verified 03/16/20 19:14 [From E-Mycin] SYMPTOMS ketorolac tromethamine Allergy Rash/Hives Verified 03/16/20 19:14 [From Toradol] liraglutide [From Victoza] Allergy Rash/Hives Verified 03/16/20 19:14 morphine Allergy Rash/Hives Verified 03/16/20 19:14 Penicillins Allergy Rash/Hives Verified 03/16/20 19:14 pentazocine lactate Allergy SEVERE Verified 03/16/20 19:14 [From Talwin] BLISTERS IN MOUTH pregabalin [From Lyrica] Allergy Rash/Hives Verified 03/16/20 19:14 propoxyphene HCl Allergy Rash/Hives Verified 03/16/20 19:14 [From Darvon] Sulfa (Sulfonamide Allergy Rash/Hives Verified 03/16/20 19:14 Antibiotics) tramadol Allergy Unknown Verified 03/16/20 19:14 monosodium glutamate [MSG] AdvReac Nausea & Verified 03/16/20 19:14 Vomiting nalbuphine HCl [From Nubain] AdvReac Nausea & Verified 03/16/20 19:14 Vomiting Review of Systems ROS Statement: Those systems with pertinent positive or pertinent negative responses have been documented in the HPI. ROS Other: All systems not noted in ROS Statement are negative. Constitutional: Reports: fever Eyes: Denies: eye pain ENT: Denies: ear pain Respiratory: Denies: cough, dyspnea Cardiovascular: Denies: chest pain Endocrine: Denies: fatigue Gastrointestinal: Reports: as per HPI Genitourinary: Reports: as per HPI Musculoskeletal: Denies: back pain Skin: Denies: rash Neurological: Reports: as per HPI Past Medical History Past Medical History: Diabetes Mellitus, Deep Vein Thrombosis (DVT), Fibromyalgia, Hyperlipidemia, Hypertension, Osteoarthritis (OA), Pneumonia, Renal Disease, Sleep Apnea/CPAP/BIPAP, Vascular Disorder Additional Past Medical History / Comment(s): Pt recently admitted to [facility] on 11/28/19 with recurerent UTI. 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, DVT R calf in 1976, cardiac murmur, occipital neuraligia, balance issues-has narrowing of vessels "in the back of my head", vertigo, varicosities, states rt shoulder torn rotator cuff History of Any Multi-Drug Resistant Organisms: ESBL, MRSA, VRE Date of last positivie culture/infection: 11/09/19 ESBL; 03/10/11 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 MDRO Source:: ESBL URINE; MRSA 4th rt TOE VRE URINE Past Surgical History: Appendectomy, Back Surgery, Bladder Surgery, Breast Surgery, Cholecystectomy, Heart Catheterization, Hysterectomy, Orthopedic Surgery, Tonsillectomy Additional Past Surgical History / Comment(s): Lumbar fusions, bladder suspension, occipital nerve blocks, 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, R wrist/elbow nerve repair, bone removed R shoulder, 4th toe R foot partial amputation, bilateral feet/bunionectomies, R knee arthroscopies, R orbit decompression with ethmoidectomy and eyelid lift, EGD, colonoscopies, cystocopies, lithotripsy/stents, bilateral breast reduction, bilateral cataract removals, parathyroid surgery - April 2019, pain clinic procedures Past Anesthesia/Blood Transfusion Reactions: No Reported Reaction Additional Past Anesthesia/Blood Transfusion Reaction / Comment(s): never recieved blood Past Psychological History: Depression Smoking Status: Never smoker Past Alcohol Use History: None Reported Past Drug Use History: None Reported - Past Family History Father Family Medical History: Coronary Artery Disease (CAD), CVA/TIA, Diabetes Mellitus, Myocardial Infarction (RI), Pneumonia Additional Family Medical History / Comment(s): Father at the age of 78yrs from RI and pneumonia. Mother Family Medical History: Cancer Additional Family Medical History / Comment(s): Mother had uterine cancer. She recently at the age of 96yrs old from [facility]. General Exam Limitations: no limitations General appearance: alert, in no apparent distress Head exam: Present: normocephalic Eye exam: Present: normal appearance ENT exam: Present: normal oropharynx Neck exam: Present: normal inspection. Absent: tenderness, meningismus Respiratory exam: Present: normal lung sounds bilaterally Cardiovascular Exam: Present: tachycardia Expanded Peripheral pulses: 2+: Radial (R), Radial (L) GI/Abdominal exam: Present: soft. Absent: tenderness Extremities exam: Present: normal inspection Neurological exam: Present: alert, CN II-XII intact. Absent: motor sensory deficit Expanded Neurological exam: Present: protecting the airway, other (Fluid speech) Motor strength exam: RUE: 5, LUE: 5, RLE: 5, LLE: 5 Eye Response: (4) open spontaneously Motor Response: (6) obeys commands Verbal Response: (5) oriented Psychiatric exam: Present: normal affect, normal mood Skin exam: Present: normal color, other (Refill less than 2 seconds bilateral fingers.) Course Vital Signs 03/16/20 19:11 Temperature 100.1 F H Pulse Rate 111 H Respiratory 18 Rate Blood Pressure 139/77 O2 Sat by Pulse 96 Oximetry Medical Decision Making - Medical Decision Making Patient updated on plan. Case was discussed with Dr. Agarwal, who will admit his patient. He does agree with switching antibiotics to Levaquin. Disposition Clinical Impression: UTI (urinary tract infection), Sepsis Disposition: ADMITTED IP TO THIS HOSP Is patient prescribed a controlled substance at d/c from ED?: No Referrals: Andrew Gonsales MD [Primary Care Provider] - 1-2 days Decision Time: 19:45
[2020-03-16] MEDS ORDERED: NALOXONE 0.4 MG/ML 1 ML VIAL IV PRN (19:48)
[2020-03-16] MEDS ORDERED: LEVOFLOXACIN 750MG-D5W PMX 750 MG in DEXTROSE/WATER 1 150ML.BAG IVPB SCH (20:00)
[2020-03-16] MEDS ORDERED: HYDROmorphone 1 MG/ML 1 ML SYRINGE IVP STA (20:20)
[2020-03-16] MEDS ORDERED: ONDANSETRON 4 MG/2 ML VIAL IVP STA (20:23)
[2020-03-16] MEDS: SODIUM CHLORIDE 0.9% 1,000 ML IV SCH (20:35)
--- NOTE | 2020-03-16 21:42 | US ---
EXAMINATION TYPE: US kidneys/renal and bladder DATE OF EXAM: 03/16/2020 COMPARISON: US 2018 CLINICAL HISTORY: uti, pain. UTI, pain in right flank x 3 days. Hx bladder surgery. Patient unsure of what surgery she had on her bladder. Hx kidney stones, cyst. EXAM MEASUREMENTS: Right Kidney: 10.0 x 4.9 x 4.2 cm Left Kidney: 10.3 x 5.2 x 4.8 cm Right Kidney: Hypoechoic-anechoic area seen laterally measurin.5 x 2.0 x 1.9 cm. Left Kidney: Hypoechoic area seen anteromedially measurin.7 x 3.6 x 2.6 cm. Bladder: Appears to be anechoic. Not fully distended. Bilateral Jets seen: Left jet seen. Right jet not definitely seen. IMPRESSION: There are bilateral renal cortical cysts. No evidence of hydronephrosis. Right side ureteral jet not seen during the exam.
[2020-03-16] MEDS: HYDROcodone/APAP 10-325MG 1 EACH TAB PO PRN (23:12)
[2020-03-17] MEDS: HYDROmorphone 0.5 MG/0.5 ML SYRINGE IVP PRN ×6 (01:29→22:57)
[2020-03-17] MEDS: ACETAMINOPHEN TAB 325 MG TAB PO PRN ×2 (03:11→23:31)
[2020-03-17 03:22] LABS: Glucose,Whole Blood 157 mg/dL (75-99)
[2020-03-17] MEDS ORDERED: METOPROLOL TARTRATE 50 MG TAB PO STA (03:47)
[2020-03-17] MEDS: METOCLOPRAMIDE 5 MG/ML 2 ML VIAL IVP SCH ×4 (03:52→22:58)
[2020-03-17] MEDS ORDERED: SODIUM CHLORIDE 0.9% 1,000 ML IV ONE (04:00)
[2020-03-17] MEDS: SODIUM CHLORIDE 0.9% 1,000 ML IV SCH ×3 (05:13→20:45)
[2020-03-17 05:34] LABS: Basophils # (A) 0.1 k/uL (0-0.2); Basophils % (A) 1 %; Eosinophils # (A) 0.3 k/uL (0-0.7); Eosinophils % (A) 2 %; HGB 11.1 gm/dL (11.4-16.0); Hypochromasia Slight; Lymphocytes # (A) 0.7 k/uL (1.0-4.8); Lymphocytes % (A) 6 %; MCH 27.7 pg (25.0-35.0); MCHC 30.8 g/dL (31.0-37.0); MCV 89.9 fL (80.0-100.0); Monocytes # (A) 0.7 k/uL (0-1.0); Monocytes % (A) 6 %; Neutrophils # (A) 10.9 k/uL (1.3-7.7); Neutrophils % (A) 85 %; Platelet Count 154 k/uL (150-450); RDW 14.1 % (11.5-15.5); WBC 12.8 k/uL (3.8-10.6)
[2020-03-17 08:07] LABS: Glucose,Whole Blood 171 mg/dL (75-99)
[2020-03-17] MEDS: HYDROCORTISONE 10 MG TAB PO SCH ×3 (08:48→20:10)
[2020-03-17] MEDS: INSULIN ASPART (NovoLOG) 100 UNIT/ML VIAL SQ SCH ×4 (08:48→21:04)
[2020-03-17] MEDS: lisinopriL 20 MG TAB PO SCH (08:48)
[2020-03-17] MEDS: CLOPIDOGREL 75 MG TAB PO SCH (08:49)
[2020-03-17] MEDS: ASPIRIN 81 MG PO SCH (08:49)
[2020-03-17] MEDS: MAGNESIUM OXIDE 400 MG TAB PO SCH ×2 (08:49→20:10)
[2020-03-17] MEDS: VENLAFAXINE HCL ER 75 MG CAP PO SCH (08:49)
[2020-03-17] MEDS: SPIRONOLACTONE 25 MG TAB PO SCH (08:49)
[2020-03-17] MEDS: PANTOPRAZOLE 40 MG TABLET PO SCH ×2 (08:49→20:10)
[2020-03-17] MEDS ORDERED: METOCLOPRAMIDE 5 MG TAB PO PRN (09:00)
[2020-03-17] MEDS: ONDANSETRON 4 MG/2 ML VIAL IVP PRN ×3 (09:29→20:42)
[2020-03-17] MEDS: HYDROcodone/APAP 10-325MG 1 EACH TAB PO PRN ×2 (09:29→16:59)
--- NOTE | 2020-03-17 09:42 | CT ---
EXAMINATION TYPE: CT abdomen pelvis wo con DATE OF EXAM: 03/17/2020 COMPARISON: 11/26/2019, 03/12/2019 INDICATION: right side abdominal pain DLP: 639 mGycm, Automated exposure control for dose reduction was used. CONTRAST: 0 mL of Isovue 300. Study performed without Oral Contrast TECHNIQUE: Axial images were obtained from above the diaphragm to the pubic rami in the axial plane a t 5 mm thick sections. Reconstructed images are reviewed on the computer in the coronal plane. FINDINGS: Limited CT sections are obtained the lung bases. Some minimal compressive atelectasis is within the posterior medial right lung base. There is a small density in the lingula measuring 1.3 cm. Series 20 1 image 11 may be some atelectasis. Underlying mass is not excluded. Follow-up CT chest is recommende d. CT ABDOMEN: Liver: Normal Spleen: Normal Pancreas: Normal Adrenal glands: The adrenal glands are normal. Gallbladder: Surgically absent Kidneys: No masses are evident. No hydronephrosis is present. There is an exophytic cyst extending from the anterior mid left kidney measuring 3.5 cm and 9 Hounsfield units. There is a calcification s uperior pole left kidney measuring 0.3 cm. A nonobstructing renal stones in the mid anterior left kid ashish measuring 0.3 cm. Small cortical renal cyst is on the mid right kidney measuring 2.2 cm in -4 Jada nsfield units. Aorta: Vascular calcification is within the aorta. Inferior vena cava: Normal. CT PELVIS: Loops of bowel within the abdomen and pelvis are normal. Study is without oral contrast limiting bowel evaluation. Appendix: Not identified. No suspicious tubular structures or inflammatory changes are evident. Urinary bladder: Normal. Genitourinary structures: Uterus and ovaries are not identified. Osseous structures: No suspicious lytic or sclerotic lesions. Old pelvic fractures are evident. IMPRESSIONS: 1. Nonobstructing left renal stones. 2. Bilateral renal cysts. 3. Density within the lingula at the base. Mass or atelectasis is within the differential. Follow-up CT chest is recommended.
[2020-03-17 09:45] LABS: African American GFR (CKD) 86.6 (60.0-200.0); Albumin 3.1 g/dL (3.80-4.90); Albumin/Globulin Ratio 2.58 (1.60-3.17); Anion Gap 14.4 mmol/L (4.00-12.00); Calcium 7.1 mg/dL (8.7-10.3); Carbon Dioxide 15.6 mmol/L (21.6-31.8); Globulin 1.2 g/dL (1.6-3.3); Non-African American GFR(CKD) 74.7 (60.0-200.0); Potassium 3.7 mmol/L (3.5-5.5); Total Bilirubin 0.3 mg/dL (0.3-1.2); Total Protein 4.3 g/dL (6.2-8.2)
[2020-03-17 11:43] LABS: Glucose,Whole Blood 168 mg/dL (75-99)
--- NOTE | 2020-03-17 13:13 | P.CNNES ---
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 Per the patient the last 3 days she's been having generalized weakness, she is noticing she has a fever, and she's been having dysuria. She went to [facility] and that she was told that she had urinary tract infection. She was also told that the her temperature was 103 Fahrenheit. She denied having any dysarthria at this time around. I asked her multiple times but and but she was persistent that she didn't have any dysarthria this time around. She was diagnosed with urinary tract infection and the sepsis. Patient was started on vancomycin and cefepime. She did receive a fluid bolus. As she had elevated white blood cell and lactic acid of 4.2. She had a CT of the head and was reported that and it didn't show any lacunar infarct. She was tachycardic the heart rate of 130 and then decrease to 120. Currently the patient feels like she has a dry mouth and feels like she has a h eadache in the right temporal region which is throbbing, 8/10 she feels like she is nauseous and she does have photophobia photophobia. She said that started this morning. I personally saw the patient on 01/28/2020 also for dysarthria. On that admission it was felt that the patient had dysarthria from the likely urinary tract infection versus TIA. Patient initial vitals were temperature of 100.1 Fahrenheit, blood pressure of 139/77, heart rate of 111, pulse ox of 96 at room air and respiratory rate of 18. Patient will blood cell in our facility is 12.8 and it's predominantly neutrophilic. On 01/28/2020 she had a urinary tract infection. MRI of the brain was done on 01/28/2020 and it was reported as no acute abnormalities evident. It was age- related changes of atrophy and chronic small vessel ischemia. No evidence of acute ischemia. Was felt the patient dysarthria was likely due to amnestic recall from urinary tract infection versus TIA. But as stroke was ruled out. Carotid duplex was also done and shows persistent moderate office chronic changes bilaterally without hemodynamic significant stenosis clearly seen in either internal carotid arteries. Patient has history of bilateral vertebral artery stenosis. Therefore I recommended continuing aspirin 81mg and Plavix 75mg. I also recommended to continue Lipitor 40mg daily. She was notified to all up with her neurologist (Dr. Barry) as an outpatient. For her migraines she said that she is on Fioricet as well as [place]. Review of Systems Review of system: The 12 point system was reviewed and apparent positive and negative per HPI. Past Medical History Past Medical History: Diabetes Mellitus, Deep Vein Thrombosis (DVT), Fibro myalgia, Hyperlipidemia, Hypertension, Osteoarthritis (OA), Pneumonia, Renal Disease, Sleep Apnea/CPAP/BIPAP, Vascular Disorder Additional Past Medical History / Comment(s): Pt recently admitted to [facility] on 11/28/19 with recurerent UTI. 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, DVT R calf in 1976, cardiac murmur, occipital neuraligia, balance issues-has narrowing of vessels "in the back of my head", vertigo, varicosities, states rt shoulder torn rotator cuff History of Any Multi-Drug Resistant Organisms: ESBL, MRSA, VRE Date of last positivie culture/infection: 11/09/19 ESBL; 03/10/11 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 MDRO Source:: ESBL URINE; MRSA 4th rt TOE VRE URINE Past Surgical History: Appendectomy, Back Surgery, Bladder Surgery, Breast Surgery, Cholecystectomy, Heart Catheterization, Hysterectomy, Orthopedic Surgery, Tonsillectomy Additional Past Surgical History / Comment(s): Lumbar fusions, bladder suspension, occipital nerve blocks, 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, R wrist/elbow nerve repair, bone removed R shoulder, 4th toe R foot partial amputation, bilateral feet/bunionectomies, R knee arthroscopies, R orbit decompression with ethmoidectomy and eyelid lift, EGD, colonoscopies, cystocopies, lithotripsy/stents, bilateral breast reduction, bilateral cataract removals, parathyroid surgery - April 2019, pain clinic procedures Past Anesthesia/Blood Transfusion Reactions: No Reported Reaction Additional Past Anesthesia/Blood Transfusion Reaction / Comment(s): never reciev ed blood Past Psychological History: Depression Smoking Status: Never smoker Past Alcohol Use History: None Reported Past Drug Use History: None Reported - Past Family History Father Family Medical History: Coronary Artery Disease (CAD), CVA/TIA, Diabetes Mellitus, Myocardial Infarction ([place]), Pneumonia Additional Family Medical History / Comment(s): Father at the age of 78yrs from [place] and pneumonia. Mother Family Medical History: Cancer Additional Family Medical History / Comment(s): Mother had uterine cancer. She recently at the age of 96yrs old from [place]. Medications and Allergies Home Medications Medication Instructions Recorded Confirmed Type Cholecalciferol [Vitamin D3 (25 3,000 unit PO DAILY@0700 12/01/03/16/20 History Mcg = 1000 Iu)] Metoprolol Succinate (ER) [Toprol 50 mg PO HS 07/06/17 03/16/20 History XL] Meclizine [Antivert] 25 mg PO QID PRN 11/26/17 03/16/20 History Hydrocortisone [Cortef] 15 mg PO AC-BRKFST 05/18/18 03/16/20 History Hydrocortisone [Cortef] 5 mg PO HS 06/26/18 03/16/20 History Aspirin 81 mg PO DAILY #0 07/02/18 03/16/20 Rx Glucagon Emergency Kit 1 mg IM ONCE PRN 08/12/18 03/16/20 History Cranberry 300mg 300 mg PO BID 10/08/18 03/16/20 History Ferrous Sulfate [Iron (65 MG 325 mg PO DAILY 10/08/18 03/16/20 History Elemental)] Folic Acid 0.4 mg PO DAILY 10/08/18 03/16/20 History L.acidoph,Paracasei, B.lactis 2 cap PO BID 10/08/18 03/16/20 History [Probiotic] Melatonin 5 mg PO HS PRN 10/08/18 03/16/20 History Multivitamins, Thera Liquid 30 ml PO DAILY 10/08/18 03/16/20 History [Theragran Liquid (formulary)] Potassium 99 mg PO DAILY 10/08/18 03/16/20 History Thiamine [Vitamin B-1] 100 mg PO DAILY 10/08/18 03/16/20 History Vitamin B-Complex Drops 1 ml PO BID 10/08/18 03/16/20 History Atorvastatin [Lipitor] 40 mg PO HS #30 tab 11/16/18 03/16/20 Rx Pantoprazole [Protonix] 40 mg PO BID 01/29/19 03/16/20 History Hydrocortisone [Cortef] 10 mg PO AC-LUNCH 08/30/19 03/16/20 History Venlafaxine HCl [Effexor XR] 75 mg PO DAILY 11/08/19 03/16/20 History Acetaminophen Tab [Tylenol] 1,000 mg PO Q6HR PRN 12/06/19 03/16/20 History Clopidogrel [Plavix] 75 mg PO DAILY 12/06/19 03/16/20 History Magnesium Oxide [Mag-Ox] 400 mg PO DAILY 12/06/19 03/16/20 History Ondansetron HCl [Zofran] 4 mg PO Q6H PRN 12/06/19 03/16/20 History Promethazine 6.25MG/5Ml [Phenergan 6.25 mg PO Q6H PRN 12/06/19 03/16/20 History Syrup] Spironolactone [Aldactone] 50 mg PO DAILY 12/30/19 03/16/20 History Estrogens, Conjugated Cream 1 applicator VAGINAL WESA 02/16/20 03/16/20 History [Premarin Cream] Cholestyramine (with Sugar) 4 gm PO TID BETWEEN MEALS #30 02/19/20 03/16/20 Rx [Questran Packet] packet Metoclopramide [Reglan] 5 mg PO TID PRN #30 tab 02/19/20 03/16/20 Rx lisinopriL [Zestril] 40 mg PO W/BRKFST #60 tab 02/19/20 03/16/20 Rx HYDROcodone/APAP 10-325MG [[place] 1 tab PO Q6H PRN #12 tab 02/25/20 03/16/20 Rx 10-325] INSULIN ASPART (NovoLOG) [NovoLOG 14 unit SQ AC-BRKFST vial 02/25/20 03/16/20 Rx (formulary)] INSULIN ASPART (NovoLOG) [NovoLOG 18 unit SQ AC-LUNCH vial 02/25/20 03/16/20 Rx (formulary)] INSULIN ASPART (NovoLOG) [NovoLOG 24 unit SQ AC-SUPPER vial 02/25/20 03/16/20 Rx (formulary)] Insulin Detemir (Levemir) [Levemir] 25 unit SQ HS@2200 syr 02/25/20 03/16/20 Rx Butalb/APAP/Caff 50-325-40Mg 1 tab PO QID PRN #12 tab 02/26/20 03/16/20 Rx [Fioricet 50-325-40] Allergies Allergy/AdvReac Type Severity Reaction Status Date / Time butorphanol tartrate Allergy BLISTERS Verified 03/16/20 20:04 [From Stadol] IN MOUTH ceftriaxone [From Rocephin] Allergy Unknown Verified 03/16/20 20:04 clarithromycin [From Biaxin] Allergy Rash/Hives Verified 03/16/20 20:04 codeine Allergy Rash/Hives Verified 03/16/20 20:04 ergotamine tartrate Allergy Unknown Verified 03/16/20 20:04 [From Cafergot] erythromycin base Allergy RASH, GI Verified 03/16/20 20:04 [From E-Mycin] SYMPTOMS ketorolac tromethamine Allergy Rash/Hives Verified 03/16/20 20:04 [From Toradol] liraglutide [From Victoza] Allergy Rash/Hives Verified 03/16/20 20:04 morphine Allergy Rash/Hives Verified 03/16/20 20:04 Penicillins Allergy Rash/Hives Verified 03/16/20 20:04 pentazocine lactate Allergy SEVERE Verified 03/16/20 20:04 [From Talwin] BLISTERS IN MOUTH pregabalin [From Lyrica] Allergy Rash/Hives Verified 03/16/20 20:04 propoxyphene HCl Allergy Rash/Hives Verified 03/16/20 20:04 [From Darvon] Sulfa (Sulfonamide Allergy Rash/Hives Verified 03/16/20 20:04 Antibiotics) tramadol Allergy Unknown Verified 03/16/20 20:04 monosodium glutamate [MSG] AdvReac Nausea & Verified 03/16/20 20:04 Vomiting nalbuphine HCl [From Nubain] AdvReac Nausea & Verified 03/16/20 20:04 Vomiting Physical Examination - Vital Signs Vital Signs: Vital Signs Temp Pulse Resp BP Pulse Ox 03/17/20 08:00 99.3 F 03/17/20 06:36 84 17 109/55 94 L 03/17/20 06:17 82 16 92/50 94 L 03/17/20 05:53 81 17 98/48 94 L 03/17/20 05:27 100.2 F H 89 17 99 03/17/20 04:14 102.5 F H 134 H 03/17/20 03:13 103.1 F H 145 H 18 150/88 95 03/17/20 00:00 109 H 18 113/61 96 03/16/20 23:12 114 H 18 102/50 97 03/16/20 22:00 98.9 F 115 H 18 105/52 96 03/16/20 20:30 119 H 18 96/56 93 L 03/16/20 19:11 100.1 F H 111 H 18 139/77 96 Intake and Output 03/16/20 03/17/20 03/17/20 22:59 06:59 14:59 Other: Weight 61.235 kg GENERAL: The patient is lying in bed and is in acute distress. CHEST: The heart rate is regular rate rhythm. No murmurs to auscultation. LUNG: Not labored breathing. ABDOMEN/GI: Bowel sounds present in all 4 quadrants. No tenderness to palpation throughout. NEUROLOGICAL: Higher mental function: The patient is awake, alert, oriented to self, place and time. Patient is following commands. No aphasia and no neglect. Cranial nerves: The pupils are round, equal and reactive to light and ac commodation. Visual hinds are full to confrontation throughout. Extraocular movement is intact no nystagmus is noted. Facial sensation is normal to touch throughout. The facial strength is normal throughout. Hearing is normal bilaterally to hand rub. Tongue is midline and moved [id number] without any difficulty. No dysarthria is noted. Shoulder shrug is normal bilaterally. Motor: Gait is defered. The strength is 5 over 5 throughout. Normal tone and bulk. Cerebellum: Normal finger to nose bilaterally. Sensation: Sensation is normal to touch throughout. Reflexes (right/left): 2+ throughout. Plantars are downgoing bilaterally. Results - Laboratory Findings CBC and BMP: 03/17/20 05:00 03/17/20 05:00 Abnormal Lab Findings: Abnormal Labs 03/16/20 03/17/20 03/17/20 20:00 03:20 04:29 WBC Hgb MCHC Neutrophils # Lymphocytes # Chloride Carbon Dioxide Anion Gap Glucose POC Glucose (mg/dL) 157 H Plasma Lactic Acid Sudhir 2.7 H* 2.1 H* Calcium Total Protein Albumin Globulin 03/17/20 03/17/20 03/17/20 05:00 05:00 07:31 WBC 12.8 H Hgb 11.1 L MCHC 30.8 L Neutrophils # 10.9 H Lymphocytes # 0.7 L Chloride 110 H Carbon Dioxide 15.6 L Anion Gap 14.40 H Glucose 150 H POC Glucose (mg/dL) Plasma Lactic Acid Sudhir 2.9 H* Calcium 7.1 L Total Protein 4.3 L Albumin 3.10 L Globulin 1.2 L 03/17/20 03/17/20 08:03 11:41 WBC Hgb MCHC Neutrophils # Lymphocytes # Chloride Carbon Dioxide Anion Gap Glucose POC Glucose (mg/dL) 171 H 168 H Plasma Lactic Acid Sudhir Calcium Total Protein Albumin Globulin Assessment and Plan Assessment: Dysarthria are likely due to urinary tract infection (patient denies any episode of dysarthria this time around) Acute urinary tract infection History of right basal infarct History of bilateral vertebral stenosis History of medical intractable migraine History of recurrent urinary tract infection Diabetes mellitus Hyperlipidemia hypertension Plan: Continue aspirin 81 mg and Plavix 75 mg especially the patient has bilateral vertebral artery stenosis. I'll increase the Lipitor from 40 mg to 80 mg daily. There is no need to repeat the MRI the brain since her last MRI the brain was on 01/28/2020 and ruled out a stroke. Also there is no need to repeat any of the stroke workup since she had the stroke workup the on 01/28/2020. Regarding her headache I will place patient on gabapentin 100 mg 1 tablet TID. Then prior to discharge discontinue it. We'll defer the management of UTI to the ID team Thank you for the consult. Jason Mccord M.D. Neuro-hospitalist Time with Patient: Greater than 30
[2020-03-17] MEDS ORDERED: ACETAMINOPHEN IV (For NPO) 1,000 MG in EMPTY BAG 1 BAG IVPB STA (14:56)
[2020-03-17] MEDS: ERTAPENEM 1 GM in SODIUM CHLORIDE 0.9% 50 ML IVPB SCH (16:36)
[2020-03-17] MEDS: GABAPENTIN 100 MG CAP PO SCH ×2 (16:38→20:10)
[2020-03-17 16:44] LABS: Glucose,Whole Blood 168 mg/dL (75-99)
[2020-03-17] MEDS: ATORVASTATIN 80 MG TAB PO SCH (20:09)
[2020-03-17] MEDS: METOPROLOL SUCCINATE (ER) 50 MG TAB.ER.24H PO SCH (20:10)
[2020-03-17] MEDS ORDERED: ATORVASTATIN 40 MG TAB PO SCH (21:00)
[2020-03-17 21:09] LABS: Glucose,Whole Blood 136 mg/dL (75-99)
[2020-03-17] MEDS ORDERED: PROMETHAZINE INJ 12.5 MG in SODIUM CHLORIDE 0.9% 50 ML IVPB PRN (22:00)
--- NOTE | 2020-03-17 23:02 | P.HPIM ---
History of Present Illness H&P Date: 03/17/20 Chief Complaint: weakness, chills Melissa Pena is a 69 yo F with PMH of adrenal insufficiency, recurrent UTI, chronic migraine who presented initially to outside hospital with worsening weakness and chills. She feels this has been going on for the past 3-5 days and day of her admission had worsened to the point that pt felt weak even walking. She reports no appetite over the same timeframe as well as nausea, no vomiting. Her migraines have been fairly controlled although she does complain of severe R sided flank pain today. On presentation she was tachycardic and febrile, WBC 12.8k. Renal US and CT abd/pelvis no acute process. Review of Systems All systems: negative Constitutional: Reports chills, Reports fatigue, Reports fever, Reports sweats, Reports weakness Eyes: denies blurred vision, denies pain Ears, nose, mouth and throat: Denies headache, Denies sore throat Cardiovascular: Denies chest pain, Denies shortness of breath Respiratory: Denies cough Gastrointestinal: Reports abdominal pain, Denies diarrhea, Denies nausea, Denies vomiting Genitourinary: Reports dysuria, Reports hematuria, Reports pelvic pain Musculoskeletal: Denies myalgias Integumentary: Denies pruritus, Denies rash Neurological: Denies numbness, Denies weakness Psychiatric: Denies anxiety, Denies depression Endocrine: Denies fatigue, Denies weight change Past Medical History Past Medical History: Diabetes Mellitus, Deep Vein Thrombosis (DVT), Fibromyalgia, Hyperlipidemia, Hypertension, Osteoarthritis (OA), Pneumonia, Renal Disease, Sleep Apnea/CPAP/BIPAP, Vascular Disorder Additional Past Medical History / Comment(s): Pt recently admitted to [facility] on 11/28/19 with recurerent UTI. 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, DVT R calf in 1976, cardiac murmur, occipital neuraligia, balance issues-has narrowing of vessels "in the back of my head", vertigo, varicosities, states rt shoulder torn rotator cuff History of Any Multi-Drug Resistant Organisms: ESBL, MRSA, VRE Date of last positivie culture/infection: 11/09/19 ESBL; 03/10/11 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 MDRO Source:: ESBL URINE; MRSA 4th rt TOE VRE URINE Past Surgical History: Appendectomy, Back Surgery, Bladder Surgery, Breast Surgery, Cholecystectomy, Heart Catheterization, Hysterectomy, Orthopedic Surgery, Tonsillectomy Additional Past Surgical History / Comment(s): Lumbar fusions, bladder suspension, occipital nerve blocks, 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, R wrist/elbow nerve repair, bone removed R shoulder, 4th toe R foot partial amputation, bilateral feet/bunionectomies, R knee arthroscopies, R orbit decompression with ethmoidectomy and eyelid lift, EGD, colonoscopies, cystocopies, lithotripsy/stents, bilateral breast reduction, bilateral cataract removals, parathyroid surgery - April 2019, pain clinic procedures Past Anesthesia/Blood Transfusion Reactions: No Reported Reaction Additional Past Anesthesia/Blood Transfusion Reaction / Comment(s): never recieved blood Past Psychological History: Depression Smoking Status: Never smoker Past Alcohol Use History: None Reported Past Drug Use History: None Reported - Past Family History Father Family Medical History: Coronary Artery Disease (CAD), CVA/TIA, Diabetes Mellitus, Myocardial Infarction ([place]), Pneumonia Additional Family Medical History / Comment(s): Father at the age of 78yrs from [place] and pneumonia. Mother Family Medical History: Cancer Additional Family Medical History / Comment(s): Mother had uterine cancer. She recently at the age of 96yrs old from [place]. Medications and Allergies Home Medications Medication Instructions Recorded Confirmed Type Cholecalciferol [Vitamin D3 (25 3,000 unit PO DAILY@0700 12/01/14 03/16/20 History Mcg = 1000 Iu)] Metoprolol Succinate (ER) [Toprol 50 mg PO HS 07/06/17 03/16/20 History XL] Meclizine [Antivert] 25 mg PO QID PRN 11/26/17 03/16/20 History Hydrocortisone [Cortef] 15 mg PO AC-BRKFST 05/18/18 03/16/20 History Hydrocortisone [Cortef] 5 mg PO HS 06/26/18 03/16/20 History Aspirin 81 mg PO DAILY #0 07/02/18 03/16/20 Rx Glucagon Emergency Kit 1 mg IM ONCE PRN 08/12/18 03/16/20 History Cranberry 300mg 300 mg PO BID 10/08/18 03/16/20 History Ferrous Sulfate [Iron (65 MG 325 mg PO DAILY 10/08/18 03/16/20 History Elemental)] Folic Acid 0.4 mg PO DAILY 10/08/18 03/16/20 History L.acidoph,Paracasei, B.lactis 2 cap PO BID 10/08/18 03/16/20 History [Probiotic] Melatonin 5 mg PO HS PRN 10/08/18 03/16/20 History Multivitamins, Thera Liquid 30 ml PO DAILY 10/08/18 03/16/20 History [Theragran Liquid (formulary)] Potassium 99 mg PO DAILY 10/08/18 03/16/20 History Thiamine [Vitamin B-1] 100 mg PO DAILY 10/08/18 03/16/20 History Vitamin B-Complex Drops 1 ml PO BID 10/08/18 03/16/20 History Atorvastatin [Lipitor] 40 mg PO HS #30 tab 11/16/18 03/16/20 Rx Pantoprazole [Protonix] 40 mg PO BID 01/29/19 03/16/20 History Hydrocortisone [Cortef] 10 mg PO AC-LUNCH 08/30/19 03/16/20 History Venlafaxine HCl [Effexor XR] 75 mg PO DAILY 11/08/19 03/16/20 History Acetaminophen Tab [Tylenol] 1,000 mg PO Q6HR PRN 12/06/19 03/16/20 History Clopidogrel [Plavix] 75 mg PO DAILY 12/06/19 03/16/20 History Magnesium Oxide [Mag-Ox] 400 mg PO DAILY 12/06/19 03/16/20 History Ondansetron HCl [Zofran] 4 mg PO Q6H PRN 12/06/19 03/16/20 History Promethazine 6.25MG/5Ml [Phenergan 6.25 mg PO Q6H PRN 12/06/19 03/16/20 History Syrup] Spironolactone [Aldactone] 50 mg PO DAILY 12/30/19 03/16/20 History Estrogens, Conjugated Cream 1 applicator VAGINAL WESA 02/16/20 03/16/20 History [Premarin Cream] Cholestyramine (with Sugar) 4 gm PO TID BETWEEN MEALS #30 02/19/20 03/16/20 Rx [Questran Packet] packet Metoclopramide [Reglan] 5 mg PO TID PRN #30 tab 02/19/20 03/16/20 Rx lisinopriL [Zestril] 40 mg PO W/BRKFST #60 tab 02/19/20 03/16/20 Rx HYDROcodone/APAP 10-325MG [Hitterdal 1 tab PO Q6H PRN #12 tab 02/25/20 03/16/20 Rx 10-325] INSULIN ASPART (NovoLOG) [NovoLOG 14 unit SQ AC-BRKFST vial 02/25/20 03/16/20 Rx (formulary)] INSULIN ASPART (NovoLOG) [NovoLOG 18 unit SQ AC-LUNCH vial 02/25/20 03/16/20 Rx (formulary)] INSULIN ASPART (NovoLOG) [NovoLOG 24 unit SQ AC-SUPPER vial 02/25/20 03/16/20 Rx (formulary)] Insulin Detemir (Levemir) [Levemir] 25 unit SQ HS@2200 syr 02/25/20 03/16/20 Rx Butalb/APAP/Caff 50-325-40Mg 1 tab PO QID PRN #12 tab 02/26/20 03/16/20 Rx [Fioricet 50-325-40] Allergies Allergy/AdvReac Type Severity Reaction Status Date / Time butorphanol tartrate Allergy BLISTERS Verified 03/16/20 20:04 [From Stadol] IN MOUTH ceftriaxone [From Rocephin] Allergy Unknown Verified 03/16/20 20:04 clarithromycin [From Biaxin] Allergy Rash/Hives Verified 03/16/20 20:04 codeine Allergy Rash/Hives Verified 03/16/20 20:04 ergotamine tartrate Allergy Unknown Verified 03/16/20 20:04 [From Cafergot] erythromycin base Allergy RASH, GI Verified 03/16/20 20:04 [From E-Mycin] SYMPTOMS ketorolac tromethamine Allergy Rash/Hives Verified 03/16/20 20:04 [From Toradol] liraglutide [From Victoza] Allergy Rash/Hives Verified 03/16/20 20:04 morphine Allergy Rash/Hives Verified 03/16/20 20:04 Penicillins Allergy Rash/Hives Verified 03/16/20 20:04 pentazocine lactate Allergy SEVERE Verified 03/16/20 20:04 [From Talwin] BLISTERS IN MOUTH pregabalin [From Lyrica] Allergy Rash/Hives Verified 03/16/20 20:04 propoxyphene HCl Allergy Rash/Hives Verified 03/16/20 20:04 [From Darvon] Sulfa (Sulfonamide Allergy Rash/Hives Verified 03/16/20 20:04 Antibiotics) tramadol Allergy Unknown Verified 03/16/20 20:04 monosodium glutamate [MSG] AdvReac Nausea & Verified 03/16/20 20:04 Vomiting nalbuphine HCl [From Nubain] AdvReac Nausea & Verified 03/16/20 20:04 Vomiting Physical Exam Vitals: Vital Signs Temp Pulse Pulse Resp BP BP Pulse Ox 03/17/20 19:30 98.7 F 99 22 100/65 93 L 03/17/20 18:11 98.4 F 88 18 102/59 94 L 03/17/20 16:35 99.6 F 99 18 105/56 99 03/17/20 13:40 102.8 F H 103 H 18 141/51 96 03/17/20 08:00 99.3 F 03/17/20 06:36 84 17 109/55 94 L 03/17/20 06:17 82 16 92/50 94 L 03/17/20 05:53 81 17 98/48 94 L 03/17/20 05:27 100.2 F H 89 17 99 03/17/20 04:14 102.5 F H 134 H 03/17/20 03:13 103.1 F H 145 H 18 150/88 95 03/17/20 00:00 109 H 18 113/61 96 03/16/20 23:12 114 H 18 102/50 97 Intake and Output 03/17/20 03/17/20 03/17/20 06:59 14:59 22:59 Intake Total 200 Balance 200 Intake: Oral 200 Other: Voiding Method Diaper Diaper Incontinent Incontinent # Voids 2 1 # Bowel Movements 1 Weight 61.235 kg General: frail elderly female in NAD. Vitals reviewed Eyes: PERRL, EOMI, conjunctiva normal HENT: normocephalic, mucus membranes moist Neck: supple, no JVD Lungs: normal respiratory effort, no wheezes or rales CV: Regular rate and rhythm, no murmur. Peripheral pulses 2+ Abdomen: soft, nondistended, no organomegaly. Suprapubic tenderness. R lateral tenderness Lymph: no cervical or axillary LAD Skin: warm and dry. Neuro: A&Ox3, normal mood and affect Results CBC & Chem 7: 03/17/20 05:00 03/17/20 05:00 Labs: Abnormal Lab Results - Last 24 Hours (Table) 03/17/20 03/17/20 03/17/20 Range/Units 03:20 04:29 05:00 WBC 12.8 H (3.8-10.6) k/uL Hgb 11.1 L (11.4-16.0) gm/dL MCHC 30.8 L (31.0-37.0) g/dL Neutrophils # 10.9 H (1.3-7.7) k/uL Lymphocytes # 0.7 L (1.0-4.8) k/uL Chloride (96-109) mmol/L Carbon Dioxide (21.6-31.8) mmol/L Anion Gap (4.00-12.00) mmol/L Glucose (70-110) mg/dL POC Glucose (mg/dL) 157 H (75-99) mg/dL Plasma Lactic Acid Sudhir 2.1 H* (0.7-2.0) mmol/L Calcium (8.7-10.3) mg/dL Total Protein (6.2-8.2) g/dL Albumin (3.80-4.90) g/dL Globulin (1.6-3.3) g/dL 03/17/20 03/17/20 03/17/20 Range/Units 05:00 07:31 08:03 WBC (3.8-10.6) k/uL Hgb (11.4-16.0) gm/dL MCHC (31.0-37.0) g/dL Neutrophils # (1.3-7.7) k/uL Lymphocytes # (1.0-4.8) k/uL Chloride 110 H (96-109) mmol/L Carbon Dioxide 15.6 L (21.6-31.8) mmol/L Anion Gap 14.40 H (4.00-12.00) mmol/L Glucose 150 H (70-110) mg/dL POC Glucose (mg/dL) 171 H (75-99) mg/dL Plasma Lactic Acid Sudhir 2.9 H* (0.7-2.0) mmol/L Calcium 7.1 L (8.7-10.3) mg/dL Total Protein 4.3 L (6.2-8.2) g/dL Albumin 3.10 L (3.80-4.90) g/dL Globulin 1.2 L (1.6-3.3) g/dL 03/17/20 03/17/20 03/17/20 Range/Units 11:41 16:38 20:52 WBC (3.8-10.6) k/uL Hgb (11.4-16.0) gm/dL MCHC (31.0-37.0) g/dL Neutrophils # (1.3-7.7) k/uL Lymphocytes # (1.0-4.8) k/uL Chloride (96-109) mmol/L Carbon Dioxide (21.6-31.8) mmol/L Anion Gap (4.00-12.00) mmol/L Glucose (70-110) mg/dL POC Glucose (mg/dL) 168 H 168 H 136 H (75-99) mg/dL Plasma Lactic Acid Sudhir (0.7-2.0) mmol/L Calcium (8.7-10.3) mg/dL Total Protein (6.2-8.2) g/dL Albumin (3.80-4.90) g/dL Globulin (1.6-3.3) g/dL Thrombosis Risk Factor Assmnt - Choose All That Apply Any of the Below Risk Factors Present?: Yes Each Factor Represents 1 point: Obesity (BMI >25), Varicose veins Other Risk Factors: Yes Each Risk Factor Represents 2 Points: Age 61-74 years Each Risk Factor Represents 3 Points: History of DVT/PE Other congenital or acquired thrombophilia - If yes, enter type in comment: No Thrombosis Risk Factor Assessment Total Risk Factor Score: 7 Thrombosis Risk Factor Assessment Level: High Risk Assessment and Plan (1) Sepsis due to gram-negative UTI Current Visit: Yes Status: Acute Code(s): A41.50 - GRAM-NEGATIVE SEPSIS, UNSPECIFIED; N39.0 - URINARY TRACT INFECTION, SITE NOT SPECIFIED SNOMED C ode(s): 344824918 (2) Migraine Current Visit: Yes Status: Acute Code(s): G43.909 - MIGRAINE, UNSP, NOT INTRACTABLE, WITHOUT STATUS MIGRAINOSUS SNOMED Code(s): 14104012 (3) Adrenal insufficiency Current Visit: No Status: Chronic Code(s): E27.40 - UNSPECIFIED ADRENOCOR TICAL INSUFFICIENCY SNOMED Code(s): 750230614 (4) DM type 2 (diabetes mellitus, type 2) Current Visit: No Status: Chronic Code(s): E11.9 - TYPE 2 DIABETES MELLITUS WITHOUT COMPLICATIONS SNOMED Code(s): 47422810 Plan: 1. Sepsis, suspect urinary source. ID consult. Started on levaquin in the ED, recommend switch to ertapenem Follow cultures 2. Adrenal insufficiency. Increase cortef to stress dose while inpatient 3. T2DM. Hold her long acting and short acting insulin. Sliding scale 4. Chronic migraine. Continue reglan prn, Neurology consulted and recommending start pt on gabapentin
--- NOTE | 2020-03-17 23:17 | P.CONS ---
History of Present Illness - Reason for Consult Consult date: 03/17/20 Sepsis and UTI Requesting physician: Andrew Gonsales - Chief Complaint Abdominal pain and vomiting x 2 days - History of Present Illness Patient is a 69-year-old female with a past medical history significant for recurrent UTI infection patient has been transferred from [facility] for management of UTI and sepsis patient presenting to that facility with abdominal pain mostly in the lower abdominal area describing it to be sharp 6-7 out of 10 and no radiation with associated nausea and vomiting and did have diarrhea the patient's and has going on for a day or 2 before presented to the [facility] patient was evaluated at that facility she was noticed to have elevated white count and lactic acid of 4.2 patient has been diagnosed with urinary tract infection she received vancomycin and cefepime at that facility and subsequently was transferred to [facility] for further management, on arrival to the ER the patient did have a fever of 103F the patient did have elevated white count 12.8, patient did have abnormal liver enzymes elevated lac tic acid, CT of abdominal pelvis CT shows nonobstructive left renal stones bilaterally and cyst, patient has been admitted to the hospital, infectious disease was consulted for further management of antibiotic therapy Review of Systems Positive point has been mentioned in the HPI rest of the systems are negative Past Medical History Past Medical History: Diabetes Mellitus, Deep Vein Thrombosis (DVT), Fibromyalgia, Hyperlipidemia, Hypertension, Osteoarthritis (OA), Pneumonia, Renal Disease, Sleep Apnea/CPAP/BIPAP, Vascular Disorder Additional Past Medical History / Comment(s): Pt recently admitted to [facility] On 02/23/20 with complicated UTI/migraine/nausea and vomiting. 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, DVT R calf in 1976, cardiac murmur, occipital neuraligia, balance issues-has narrowing of vessels "in the back of my head", vertigo, varicosities, states rt shoulder torn rotator cuff History of Any Multi-Drug Resistant Organisms: ESBL, MRSA, VRE Year Discovered:: 11/09/19 ESBL; 03/10/11 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 MDRO Source:: ESBL URINE; MRSA 4th rt TOE VRE URINE Past Surgical History: Appendectomy, Back Surgery, Bladder Surgery, Breast Surgery, Cholecystectomy, Heart Catheterization, Hysterectomy, Orthopedic Surgery, Tonsillectomy Additional Past Surgical History / Comment(s): Lumbar fusions, bladder suspension, occipital nerve blocks, 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, R wrist/elbow nerve repair, bone removed R shoulder, 4th toe R foot partial amputation, bilateral feet/bunionectomies, R knee arthroscopies, R orbit decompression with ethmoidectomy and eyelid lift, EGD, colonoscopies, cystocopies, lithotripsy/stents, bilateral breast reduction, bilateral cataract removals, parathyroid surgery - April 2019, pain clinic procedures Past Anesthesia/Blood Transfusion Reactions: No Reported Reaction Additional Past Anesthesia/Blood Transfusion Reaction / Comm: never recieved blood Smoking Status: Never smoker - Past Family History Father Family Medical History: Coronary Artery Disease (CAD), CVA/TIA, Diabetes Mellitus, Myocardial Infarction ([place]), Pneumonia Additional Family Medical History / Comment(s): Father at the age of 78yrs from [place] and pneumonia. Mother Family Medical History: Cancer Additional Family Medical History / Comment(s): Mother had uterine cancer. She recently at the age of 96yrs old from [place]. Medications and Allergies Home Medications Medication Instructions Recorded Confirmed Type Cholecalciferol [Vitamin D3 (25 3,000 unit PO DAILY@0700 12/01/14 03/16/20 History Mcg = 1000 Iu)] Metoprolol Succinate (ER) [Toprol 50 mg PO HS 07/06/17 03/16/20 History XL] Meclizine [Antivert] 25 mg PO QID PRN 11/26/17 03/16/20 History Hydrocortisone [Cortef] 15 mg PO AC-BRKFST 05/18/18 03/16/20 History Hydrocortisone [Cortef] 5 mg PO HS 06/26/18 03/16/20 History Aspirin 81 mg PO DAILY #0 07/02/18 03/16/20 Rx Glucagon Emergency Kit 1 mg IM ONCE PRN 08/12/18 03/16/20 History Cranberry 300mg 300 mg PO BID 10/08/18 03/16/20 History Ferrous Sulfate [Iron (65 MG 325 mg PO DAILY 10/08/18 03/16/20 History Elemental)] Folic Acid 0.4 mg PO DAILY 10/08/18 03/16/20 History L.acidoph,Paracasei, B.lactis 2 cap PO BID 10/08/18 03/16/20 History [Probiotic] Melatonin 5 mg PO HS PRN 10/08/18 03/16/20 History Multivitamins, Thera Liquid 30 ml PO DAILY 10/08/18 03/16/20 History [Theragran Liquid (formulary)] Potassium 99 mg PO DAILY 10/08/18 03/16/20 History Thiamine [Vitamin B-1] 100 mg PO DAILY 10/08/18 03/16/20 History Vitamin B-Complex Drops 1 ml PO BID 10/08/18 03/16/20 History Atorvastatin [Lipitor] 40 mg PO HS #30 tab 11/16/18 03/16/20 Rx Pantoprazole [Protonix] 40 mg PO BID 01/29/19 03/16/20 History Hydrocortisone [Cortef] 10 mg PO AC-LUNCH 08/30/19 03/16/20 History Venlafaxine HCl [Effexor XR] 75 mg PO DAILY 11/08/19 03/16/20 History Acetaminophen Tab [Tylenol] 1,000 mg PO Q6HR PRN 12/06/19 03/16/20 History Clopidogrel [Plavix] 75 mg PO DAILY 12/06/19 03/16/20 History Magnesium Oxide [Mag-Ox] 400 mg PO DAILY 12/06/19 03/16/20 History Ondansetron HCl [Zofran] 4 mg PO Q6H PRN 12/06/19 03/16/20 History Promethazine 6.25MG/5Ml [Phenergan 6.25 mg PO Q6H PRN 12/06/19 03/16/20 History Syrup] Spironolactone [Aldactone] 50 mg PO DAILY 12/30/19 03/16/20 History Estrogens, Conjugated Cream 1 applicator VAGINAL WESA 02/16/20 03/16/20 History [Premarin Cream] Cholestyramine (with Sugar) 4 gm PO TID BETWEEN MEALS #30 02/19/20 03/16/20 Rx [Questran Packet] packet Metoclopramide [Reglan] 5 mg PO TID PRN #30 tab 02/19/20 03/16/20 Rx lisinopriL [Zestril] 40 mg PO W/BRKFST #60 tab 02/19/20 03/16/20 Rx HYDROcodone/APAP 10-325MG [[place] 1 tab PO Q6H PRN #12 tab 02/25/20 03/16/20 Rx 10-325] INSULIN ASPART (NovoLOG) [NovoLOG 14 unit SQ AC-BRKFST vial 02/25/20 03/16/20 Rx (formulary)] INSULIN ASPART (NovoLOG) [NovoLOG 18 unit SQ AC-LUNCH vial 02/25/20 03/16/20 Rx (formulary)] INSULIN ASPART (NovoLOG) [NovoLOG 24 unit SQ AC-SUPPER vial 02/25/20 03/16/20 Rx (formulary)] Insulin Detemir (Levemir) [Levemir] 25 unit SQ HS@2200 syr 02/25/20 03/16/20 Rx Butalb/APAP/Caff 50-325-40Mg 1 tab PO QID PRN #12 tab 02/26/20 03/16/20 Rx [Fioricet 50-325-40] Allergies Allergy/AdvReac Type Severity Reaction Status Date / Time butorphanol tartrate Allergy BLISTERS Verified 03/16/20 20:04 [From Stadol] IN MOUTH ceftriaxone [From Rocephin] Allergy Unknown Verified 03/16/20 20:04 clarithromycin [From Biaxin] Allergy Rash/Hives Verified 03/16/20 20:04 codeine Allergy Rash/Hives Verified 03/16/20 20:04 ergotamine tartrate Allergy Unknown Verified 03/16/20 20:04 [From Cafergot] erythromycin base Allergy RASH, GI Verified 03/16/20 20:04 [From E-Mycin] SYMPTOMS ketorolac tromethamine Allergy Rash/Hives Verified 03/16/20 20:04 [From Toradol] liraglutide [From Victoza] Allergy Rash/Hives Verified 03/16/20 20:04 morphine Allergy Rash/Hives Verified 03/16/20 20:04 Penicillins Allergy Rash/Hives Verified 03/16/20 20:04 pentazocine lactate Allergy SEVERE Verified 03/16/20 20:04 [From Talwin] BLISTERS IN MOUTH pregabalin [From Lyrica] Allergy Rash/Hives Verified 03/16/20 20:04 propoxyphene HCl Allergy Rash/Hives Verified 03/16/20 20:04 [From Darvon] Sulfa (Sulfonamide Allergy Rash/Hives Verified 03/16/20 20:04 Antibiotics) tramadol Allergy Unknown Verified 03/16/20 20:04 monosodium glutamate [MSG] AdvReac Nausea & Verified 03/16/20 20:04 Vomiting nalbuphine HCl [From Nubain] AdvReac Nausea & Verified 03/16/20 20:04 Vomiting Physical Exam Vitals: Vital Signs Temp Pulse Pulse Resp BP BP Pulse Ox 03/17/20 13:40 102.8 F H 103 H 18 141/51 96 03/17/20 08:00 99.3 F 03/17/20 06:36 84 17 109/55 94 L 03/17/20 06:17 82 16 92/50 94 L 03/17/20 05:53 81 17 98/48 94 L 03/17/20 05:27 100.2 F H 89 17 99 03/17/20 04:14 102.5 F H 134 H 03/17/20 03:13 103.1 F H 145 H 18 150/88 95 03/17/20 00:00 109 H 18 113/61 96 03/16/20 23:12 114 H 18 102/50 97 03/16/20 22:00 98.9 F 115 H 18 105/52 96 03/16/20 20:30 119 H 18 96/56 93 L 03/16/20 19:11 100.1 F H 111 H 18 139/77 96 Intake and Output 03/17/20 03/17/20 03/17/20 06:59 14:59 22:59 Other: Voiding Method Diaper Incontinent # Voids 2 Weight 61.235 kg GENERAL DESCRIPTION: An elderly female lying in bed, no distress. No tachypnea or accessory muscle of respiration use. HEENT: Shows Pallor , no scleral icterus. Oral mucous membrane is dry. No pharyngeal erythema or thrush NECK: Trachea central, no thyromegaly. LUNGS: Unlabored breathing. Decreased breath sounds at base. No wheeze or crackle. HEART: S1, S2, regular rate and rhythm. No loud murmur ABDOMEN: Soft, no tenderness , guarding or rigidity, no organomegaly EXTREMITIES: No edema of feet. SKIN: No rash, no masses palpable. NEUROLOGICAL: The patient is awake, alert, oriented x3, mood and affect normal. Results CBC & Chem 7: 03/17/20 05:00 03/17/20 05:00 Labs: Abnormal Lab Results - Last 24 Hours (Table) 03/16/20 03/17/20 03/17/20 Range/Units 20:00 03:20 04:29 WBC (3.8-10.6) k/uL Hgb (11.4-16.0) gm/dL MCHC (31.0-37.0) g/dL Neutrophils # (1.3-7.7) k/uL Lymphocytes # (1.0-4.8) k/uL Chloride (96-109) mmol/L Carbon Dioxide (21.6-31.8) mmol/L Anion Gap (4.00-12.00) mmol/L Glucose (70-110) mg/dL POC Glucose (mg/dL) 157 H (75-99) mg/dL Plasma Lactic Acid Sudhir 2.7 H* 2.1 H* (0.7-2.0) mmol/L Calcium (8.7-10.3) mg/dL Total Protein (6.2-8.2) g/dL Albumin (3.80-4.90) g/dL Globulin (1.6-3.3) g/dL 03/17/20 03/17/20 03/17/20 Range/Units 05:00 05:00 07:31 WBC 12.8 H (3.8-10.6) k/uL Hgb 11.1 L (11.4-16.0) gm/dL MCHC 30.8 L (31.0-37.0) g/dL Neutrophils # 10.9 H (1.3-7.7) k/uL Lymphocytes # 0.7 L (1.0-4.8) k/uL Chloride 110 H (96-109) mmol/L Carbon Dioxide 15.6 L (21.6-31.8) mmol/L Anion Gap 14.40 H (4.00-12.00) mmol/L Glucose 150 H (70-110) mg/dL POC Glucose (mg/dL) (75-99) mg/dL Plasma Lactic Acid Sudhir 2.9 H* (0.7-2.0) mmol/L Calcium 7.1 L (8.7-10.3) mg/dL Total Protein 4.3 L (6.2-8.2) g/dL Albumin 3.10 L (3.80-4.90) g/dL Globulin 1.2 L (1.6-3.3) g/dL 03/17/20 03/17/20 Range/Units 08:03 11:41 WBC (3.8-10.6) k/uL Hgb (11.4-16.0) gm/dL MCHC (31.0-37.0) g/dL Neutrophils # (1.3-7.7) k/uL Lymphocytes # (1.0-4.8) k/uL Chloride (96-109) mmol/L Carbon Dioxide (21.6-31.8) mmol/L Anion Gap (4.00-12.00) mmol/L Glucose (70-110) mg/dL POC Glucose (mg/dL) 171 H 168 H (75-99) mg/dL Plasma Lactic Acid Sudhir (0.7-2.0) mmol/L Calcium (8.7-10.3) mg/dL Total Protein (6.2-8.2) g/dL Albumin (3.80-4.90) g/dL Globulin (1.6-3.3) g/dL Assessment and Plan Assessment: 1- patient presented to hospital with sepsis in this patient who did have fever tachycardia and elevated white count and lactic acid and did have positive UA at the outside facility likely representing urinary tract infection with secondary sepsis in this patient who do have a history of recurrent UTI and evidence of nonobstructive left renal stone may be responsible for some of these recurrent episodes 2-Patient with multiple antibiotic ALLERGIES that would limit the number of antibiotic safe to use (1) Sepsis Current Visit: Yes Status: Acute Code(s): A41.9 - SEPSIS, UNSPECIFIED ORGANISM SNOMED Code(s): 56630557 (2) Sepsis due to gram-negative UTI Current Visit: Yes Status: Acute Code(s): A41.50 - GRAM-NEGATIVE SEPSIS, UNSPECIFIED; N39.0 - URINARY TRACT INFECTION, SITE NOT SPECIFIED SNOMED Code(s): 034407835 Plan: 1- obtain urine cultures here 2-we will start the patient on Invanz 1 g daily 3-gentle IV fluid We will follow on clinical condition and cultures to further adjust medication if needed Thank you for this consultation will follow this patient with you Time with Patient: Greater than 30
[2020-03-18] MEDS: HYDROcodone/APAP 10-325MG 1 EACH TAB PO PRN (01:36)
[2020-03-18] MEDS: SODIUM CHLORIDE 0.9% 1,000 ML IV SCH ×2 (03:41→10:59)
[2020-03-18] MEDS: HYDROmorphone 0.5 MG/0.5 ML SYRINGE IVP PRN ×5 (03:42→20:01)
[2020-03-18] MEDS: METOCLOPRAMIDE 5 MG/ML 2 ML VIAL IVP SCH ×3 (05:49→18:15)
[2020-03-18 06:42] LABS: Basophils % (A) 0 %; Eosinophils # (A) 0.3 k/uL (0-0.7); Eosinophils % (A) 4 %; HCT 32.6 % (34.0-46.0); HGB 10.2 gm/dL (11.4-16.0); Hypochromasia Slight; Lymphocytes # (A) 0.7 k/uL (1.0-4.8); Lymphocytes % (A) 10 %; MCH 28.1 pg (25.0-35.0); MCHC 31.4 g/dL (31.0-37.0); MCV 89.4 fL (80.0-100.0); Mean Platelet Volume 8.1; Monocytes # (A) 0.3 k/uL (0-1.0); Monocytes % (A) 5 %; Neutrophils # (A) 5.8 k/uL (1.3-7.7); Neutrophils % (A) 80 %; Platelet Count 140 k/uL (150-450); RBC 3.65 m/uL (3.80-5.40); WBC 7.2 k/uL (3.8-10.6)
[2020-03-18 07:16] LABS: Glucose,Whole Blood 148 mg/dL (75-99)
[2020-03-18] MEDS: ONDANSETRON 4 MG/2 ML VIAL IVP PRN ×2 (08:14→13:45)
[2020-03-18] MEDS: INSULIN ASPART (NovoLOG) 100 UNIT/ML VIAL SQ SCH ×4 (09:28→23:22)
[2020-03-18] MEDS: MAGNESIUM OXIDE 400 MG TAB PO SCH ×2 (09:29→20:04)
[2020-03-18] MEDS: PANTOPRAZOLE 40 MG TABLET PO SCH ×2 (09:29→20:04)
[2020-03-18] MEDS: ASPIRIN 81 MG PO SCH (09:29)
[2020-03-18] MEDS: GABAPENTIN 100 MG CAP PO SCH ×3 (09:29→20:04)
[2020-03-18] MEDS: VENLAFAXINE HCL ER 75 MG CAP PO SCH (09:29)
[2020-03-18] MEDS: HYDROCORTISONE 10 MG TAB PO SCH ×3 (09:29→20:03)
[2020-03-18] MEDS: lisinopriL 20 MG TAB PO SCH (09:30)
[2020-03-18] MEDS: CLOPIDOGREL 75 MG TAB PO SCH (09:31)
[2020-03-18] MEDS: SPIRONOLACTONE 25 MG TAB PO SCH (09:31)
[2020-03-18] MEDS ORDERED: IPRATROPIUM-ALBUTEROL 3 ML NEB INHALATION PRN (10:10)
[2020-03-18 10:34] LABS: African American GFR (CKD) 86.6 (60.0-200.0); Anion Gap 16.5 mmol/L (4.00-12.00); BUN/Creat Ratio 12.5 Ratio (12.00-20.00); Calcium 7.6 mg/dL (8.7-10.3); Carbon Dioxide 12.5 mmol/L (21.6-31.8); Non-African American GFR(CKD) 74.7 (60.0-200.0); Potassium 4.2 mmol/L (3.5-5.5)
--- NOTE | 2020-03-18 10:45 | XR ---
EXAMINATION TYPE: XR chest 1V DATE OF EXAM: 03/18/2020 CLINICAL HISTORY: Difficulty breathing and pneumonia. TECHNIQUE: Single AP portable upright view of the chest is obtained. COMPARISON: Chest x-ray from February 18, 2020 and older studies. CTA chest November 10, 2018 FINDINGS: Current exam suboptimal as patient rotated to the right. There is bilateral chronic emphys ematous and pulmonary fibrotic changes in the lower lungs without suspicious new focal airspace opaci ty, pleural effusion, or pneumothorax seen bilaterally. Persistent cardiomegaly with ectatic thoracic aorta. Underlying scoliotic curvature redemonstrated. IMPRESSION: Chronic changes and cardiomegaly without new suspicious acute pulmonary process.
[2020-03-18 11:05] LABS: Appearance,Urine Cloudy (Clear); Bacteria,Urine Rare /hpf; Bilirubin,Urine Negative (Negative); Blood,Urine Small (Negative); Color,Urine Yellow; Glucose,Urine (UA) Negative (Negative); Ketones,Urine 3+ (Negative); Leukocyte Esterase,Urine Large (Negative); Mucus,Urine Rare /hpf; Nitrite,Urine Negative (Negative); PH, Urine 5.5 (5.0-8.0); Protein,Urine Trace (Negative); RBC,Urine 2 /hpf (0-5); Specific Gravity,Urine 1.011 (1.001-1.035); Squamous Epithelial Cell,Urine 3 /hpf (0-4); Urobilinogen,Urine <2.0 mg/dL (<2.0); WBC,Urine 57 /hpf (0-5)
[2020-03-18] MEDS: IPRATROPIUM-ALBUTEROL 3 ML NEB INHALATION SCH ×3 (11:38→20:36)
[2020-03-18 11:39] LABS: Glucose,Whole Blood 151 mg/dL (75-99)
[2020-03-18 14:01] VITALS: BMI 26.4
--- NOTE | 2020-03-18 15:14 | P.PN ---
Subjective Progress Note Date: 03/18/20 Melissa Pena is a 69 yo F with PMH of adrenal insufficiency, recurrent UTI, chronic migraine who presented initially to outside hospital with worsening weakness and chills. She feels this has been going on for the past 3-5 days and day of her admission had worsened to the point that pt felt weak even walking. She reports no appetite over the same timeframe as well as nausea, no vomiting. Her migraines have been fairly controlled although she does complain of severe R sided flank pain today. On presentation she was tachycardic and febrile, WBC 12.8k. Renal US and CT abd/pelvis no acute process. 03/18/2015 done on IV antibiotics of Invanz as per ID in addition to stress steroids. Abdominal pain persists. Complains of headache. T-max 102.8. CT of abdomen and pelvis reported nonobstructing left renal stones, compressive atelectasis posterior medial right lung base, small density in the lingula, possible underlying mass. Significantly weak. Objective - Vital Signs Vital signs: Vital Signs Temp 98.7 F 03/18/20 07:00 Pulse 106 H 03/18/20 07:00 Resp 22 03/18/20 07:00 BP 159/76 03/18/20 07:00 Pulse Ox 98 03/18/20 07:00 Intake & Output 03/17/20 03/18/20 03/18/20 18:59 06:59 18:59 Intake Total 200 Balance 200 Weight 61.235 kg Intake: Oral 200 Other: Voiding Method Diaper Diaper Bedpan Incontinent Incontinent Diaper # Voids 2 2 # Bowel Movements 2 - Exam General: frail elderly female in NAD. Vitals reviewed Eyes: PERRL, EOMI, conjunctiva normal HENT: normocephalic, mucus membranes dry Neck: supple, no JVD Lungs: Bilateral bases diminished,no wheezes or rales, tachypneic CV: Regular rhythm, tachycardic ,no murmur. Peripheral pulses 2+ Abdomen: soft, nondistended, no organomegaly. Suprapubic tenderness. R lateral tenderness, diffuse tenderness to left lower quadrant. Skin: warm and dry. Neuro: A&Ox3, normal mood and affect - Labs CBC & Chem 7: 03/18/20 06:05 03/18/20 06:05 Labs: Abnormal Lab Results - Last 24 Hours (Table) 03/17/20 03/17/20 03/17/20 Range/Units 11:41 16:38 20:52 RBC (3.80-5.40) m/uL Hgb (11.4-16.0) gm/dL Hct (34.0-46.0) % Plt Count (150-450) k/uL Lymphocytes # (1.0-4.8) k/uL POC Glucose (mg/dL) 168 H 168 H 136 H (75-99) mg/dL 03/18/20 03/18/20 Range/Units 06:05 07:15 RBC 3.65 L (3.80-5.40) m/uL Hgb 10.2 L (11.4-16.0) gm/dL Hct 32.6 L (34.0-46.0) % Plt Count 140 L (150-450) k/uL Lymphocytes # 0.7 L (1.0-4.8) k/uL POC Glucose (mg/dL) 148 H (75-99) mg/dL Assessment and Plan Assessment: (1) Sepsis due to gram-negative UTI Current Visit: Yes Status: Acute Code(s): A41.50 - GRAM-NEGATIVE SEPSIS, UNSPECIFIED; N39.0 - URINARY TRACT INFECTION, SITE NOT SPECIFIED SNOMED Co de(s): 552783497 (2) Migraine Current Visit: Yes Status: Acute Code(s): G43.909 - MIGRAINE, UNSP, NOT INTRACTABLE, WITHOUT STATUS MIGRAINOSUS SNOMED Code(s): 01869183 (3) Adrenal insufficiency Current Visit: No Status: Chronic Code(s): E27.40 - UNSPECIFIED ADRENOCORT ICAL INSUFFICIENCY SNOMED Code(s): 777268398 (4) DM type 2 (diabetes mellitus, type 2) Current Visit: No Status: Chronic Code(s): E11.9 - TYPE 2 DIABETES MELLITUS WITHOUT COMPLICATIONS SNOMED Code(s): 75194046 (5) bilateral renal cysts (6) nonobstructing left renal stones, possibly contributing to patient's having recurrent UTIs (7) compressive atelectasis posterior medial right lung base, small density in the lingula, possible underlying mass. Plan: Continue on current medication regime ,monitoring and symptomatic treatment. Gentle IV fluid hydration. CT abdomen and pelvis reporting multiple left renal stones, nonobstructive, possibly linked to patient having recurrent UTIs-urology consulted. CT suggestive of possible underlying mass in addition to patient being hypoxic, tachypneic with sepsis, pulmonary consulted. Blood c ultures ordered. Urine culture pending. Chest x-ray pending. Aggressive pulmonary toileting with incentive spirometer ordered. PT/OT. Pain management.Prognosis guarded given multiple complex medical issues. The impression and plan of care has been dictated as directed. : I performed a history and examination of this patient, discussed the same with the dictator. I agree with the dictator's note ,documented as a scribe. Any additional findings or plans will be noted.
[2020-03-18] MEDS: ACETAMINOPHEN TAB 325 MG TAB PO PRN (15:26)
[2020-03-18] MEDS: ERTAPENEM 1 GM in SODIUM CHLORIDE 0.9% 50 ML IVPB SCH (16:00)
--- NOTE | 2020-03-18 16:04 | P.GSCN ---
History of Present Illness Consult date: 03/18/20 History of present illness: this is a pleasant 69-year-old female whom asked to see for recurring urinary infections and left renal calculi. I've seen the patient in the past for kidney stones. I haven't seen her for a couple of years. She presented to the emergency room with elevated temperature 102.8 and severe right flank pain.she was transferred from [facility] here. It is unclear to me whether she received any antibiotics there. She had a computed tomography scan here that shows an inflamed right kidney but no evidence of obstruction. I reviewed the computed tomography scan with the radiologist. Patient has 2 tiny stones in the left kidney however I doubt that these are contributing to the problem. Patient bladder is relatively full and I question whether she may be totally emptying her bladder. Review of Systems - Constitutional Reports as per HPI - Respiratory Reports as per HPI - Genitourinary Genitourinary: Reports as per HPI - Musculoskeletal Reports as per HPI Past Medical History Past Medical History: Diabetes Mellitus, Deep Vein Thrombosis (DVT), Fibromyalgia, Hyperlipidemia, Hypertension, Osteoarthritis (OA), Pneumonia, Renal Disease, Sleep Apnea/CPAP/BIPAP, Vascular Disorder Additional Past Medical History / Comment(s): Pt recently admitted to [facility] On 02/23/20 with complicated UTI/migraine/nausea and vomiting. 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, DVT R calf in 1976, cardiac murmur, occipital neuraligia, balance issues-has narrowing of vessels "in the back of my head", vertigo, varicosities, states rt shoulder torn rotator cuff History of Any Multi-Drug Resistant Organisms: ESBL, MRSA, VRE Year Discovered:: 11/09/19 ESBL; 03/10/11 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 MDRO Source:: ESBL URINE; MRSA 4th rt TOE VRE URINE Past Surgical History: Appendectomy, Back Surgery, Bladder Surgery, Breast Surgery, Cholecystectomy, Heart Catheterization, Hysterectomy, Orthopedic Surgery, Tonsillectomy Additional Past Surgical History / Comment(s): Lumbar fusions, bladder suspen becky, occipital nerve blocks, 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, R wrist/elbow nerve repair, bone removed R shoulder, 4th toe R foot partial amputation, bilateral feet/bunionectomies, R knee arthroscopies, R orbit decompression with ethmoidectomy and eyelid lift, EGD, colonoscopies, cystocopies, lithotripsy/stents, bilateral breast reduction, bilateral cataract removals, parathyroid surgery - April 2019, pain clinic procedures Past Anesthesia/Blood Transfusion Reactions: No Reported Reaction Additional Past Anesthesia/Blood Transfusion Reaction / Comm: never recieved blood Smoking Status: Never smoker - Past Family History Father Family Medical History: Coronary Artery Disease (CAD), CVA/TIA, Diabetes Mellitus, Myocardial Infarction (RI), Pneumonia Additional Family Medical History / Comment(s): Father at the age of 78yrs from RI and pneumonia. Mother Family Medical History: Cancer Additional Family Medical History / Comment(s): Mother had uterine cancer. She recently at the age of 96yrs old from [employer]. Medications and Allergies Home Medications Medication Instructions Recorded Confirmed Type Cholecalciferol [Vitamin D3 (25 3,000 unit PO DAILY@0700 12/01/14 03/16/20 History Mcg = 1000 Iu)] Metoprolol Succinate (ER) [Toprol 50 mg PO HS 07/06/17 03/16/20 History XL] Meclizine [Antivert] 25 mg PO QID PRN 11/26/17 03/16/20 History Hydrocortisone [Cortef] 15 mg PO AC-BRKFST 05/18/18 03/16/20 History Hydrocortisone [Cortef] 5 mg PO HS 06/26/18 03/16/20 History Aspirin 81 mg PO DAILY #0 07/02/18 03/16/20 Rx Glucagon Emergency Kit 1 mg IM ONCE PRN 08/12/18 03/16/20 History Cranberry 300mg 300 mg PO BID 10/08/18 03/16/20 History Ferrous Sulfate [Iron (65 MG 325 mg PO DAILY 10/08/18 03/16/20 History Elemental)] Folic Acid 0.4 mg PO DAILY 10/08/18 03/16/20 History L.acidoph,Paracasei, B.lactis 2 cap PO BID 10/08/18 03/16/20 History [Probiotic] Melatonin 5 mg PO HS PRN 10/08/18 03/16/20 History Multivitamins, Thera Liquid 30 ml PO DAILY 10/08/18 03/16/20 History [Theragran Liquid (formulary)] Potassium 99 mg PO DAILY 10/08/18 03/16/20 History Thiamine [Vitamin B-1] 100 mg PO DAILY 10/08/18 03/16/20 History Vitamin B-Complex Drops 1 ml PO BID 10/08/18 03/16/20 History Atorvastatin [Lipitor] 40 mg PO HS #30 tab 11/16/18 03/16/20 Rx Pantoprazole [Protonix] 40 mg PO BID 01/29/19 03/16/20 History Hydrocortisone [Cortef] 10 mg PO AC-LUNCH 08/30/19 03/16/20 History Venlafaxine HCl [Effexor XR] 75 mg PO DAILY 11/08/19 03/16/20 History Acetaminophen Tab [Tylenol] 1,000 mg PO Q6HR PRN 12/06/19 03/16/20 History Clopidogrel [Plavix] 75 mg PO DAILY 12/06/19 03/16/20 History Magnesium Oxide [Mag-Ox] 400 mg PO DAILY 12/06/19 03/16/20 History Ondansetron HCl [Zofran] 4 mg PO Q6H PRN 12/06/19 03/16/20 History Promethazine 6.25MG/5Ml [Phenergan 6.25 mg PO Q6H PRN 12/06/19 03/16/20 History Syrup] Spironolactone [Aldactone] 50 mg PO DAILY 12/30/19 03/16/20 History Estrogens, Conjugated Cream 1 applicator VAGINAL WESA 02/16/20 03/16/20 History [Premarin Cream] Cholestyramine (with Sugar) 4 gm PO TID BETWEEN MEALS #30 02/19/20 03/16/20 Rx [Questran Packet] packet Metoclopramide [Reglan] 5 mg PO TID PRN #30 tab 02/19/20 03/16/20 Rx lisinopriL [Zestril] 40 mg PO W/BRKFST #60 tab 02/19/20 03/16/20 Rx HYDROcodone/APAP 10-325MG [Ida 1 tab PO Q6H PRN #12 tab 02/25/20 03/16/20 Rx 10-325] INSULIN ASPART (NovoLOG) [NovoLOG 14 unit SQ AC-BRKFST vial 02/25/20 03/16/20 Rx (formulary)] INSULIN ASPART (NovoLOG) [NovoLOG 18 unit SQ AC-LUNCH vial 02/25/20 03/16/20 Rx (formulary)] INSULIN ASPART (NovoLOG) [NovoLOG 24 unit SQ AC-SUPPER vial 02/25/20 03/16/20 Rx (formulary)] Insulin Detemir (Levemir) [Levemir] 25 unit SQ HS@2200 syr 02/25/20 03/16/20 Rx Butalb/APAP/Caff 50-325-40Mg 1 tab PO QID PRN #12 tab 02/26/20 03/16/20 Rx [Fioricet 50-325-40] Allergies Allergy/AdvReac Type Severity Reaction Status Date / Time butorphanol tartrate Allergy BLISTERS Verified 03/16/20 20:04 [From Stadol] IN MOUTH ceftriaxone [From Rocephin] Allergy Unknown Verified 03/16/20 20:04 clarithromycin [From Biaxin] Allergy Rash/Hives Verified 03/16/20 20:04 codeine Allergy Rash/Hives Verified 03/16/20 20:04 ergotamine tartrate Allergy Unknown Verified 03/16/20 20:04 [From Cafergot] erythromycin base Allergy RASH, GI Verified 03/16/20 20:04 [From E-Mycin] SYMPTOMS ketorolac tromethamine Allergy Rash/Hives Verified 03/16/20 20:04 [From Toradol] liraglutide [From Victoza] Allergy Rash/Hives Verified 03/16/20 20:04 morphine Allergy Rash/Hives Verified 03/16/20 20:04 Penicillins Allergy Rash/Hives Verified 03/16/20 20:04 pentazocine lactate Allergy SEVERE Verified 03/16/20 20:04 [From Talwin] BLISTERS IN MOUTH pregabalin [From Lyrica] Allergy Rash/Hives Verified 03/16/20 20:04 propoxyphene HCl Allergy Rash/Hives Verified 03/16/20 20:04 [From Darvon] Sulfa (Sulfonamide Allergy Rash/Hives Verified 03/16/20 20:04 Antibiotics) tramadol Allergy Unknown Verified 03/16/20 20:04 monosodium glutamate [MSG] AdvReac Nausea & Verified 03/16/20 20:04 Vomiting nalbuphine HCl [From Nubain] AdvReac Nausea & Verified 03/16/20 20:04 Vomiting Surgical - Exam Vital Signs Temp Pulse Resp BP Pulse Ox 100.1 F H 111 H 18 139/77 96 03/16/20 19:11 03/16/20 19:11 03/16/20 19:11 03/16/20 19:11 03/16/20 19:11 - General well developed, well nourished, moderate distress - Eyes PERRL - ENT no hearing loss - Respiratory normal expansion, normal respiratory effort - Cardiovascular Rhythm: regular - Abdomen Abdomen: soft, tender - Integumentary no rash, no growths - Neurologic normal coordination, normal sensation - Musculoskeletal normal posture - Psychiatric oriented to time, oriented to person, oriented to place, speech is normal, memory intact Results - Labs 03/18/20 06:05 03/18/20 06:05 Abnormal Lab Results - Last 24 Hours (Table) 03/17/20 03/17/20 03/18/20 Range/Units 16:38 20:52 06:05 RBC 3.65 L (3.80-5.40) m/uL Hgb 10.2 L (11.4-16.0) gm/dL Hct 32.6 L (34.0-46.0) % Plt Count 140 L (150-450) k/uL Lymphocytes # 0.7 L (1.0-4.8) k/uL Chloride (96-109) mmol/L Carbon Dioxide (21.6-31.8) mmol/L Anion Gap (4.00-12.00) mmol/L Glucose (70-110) mg/dL POC Glucose (mg/dL) 168 H 136 H (75-99) mg/dL Calcium (8.7-10.3) mg/dL Urine Appearance (Clear) Urine Protein (Negative) Urine Ketones (Negative) Urine Blood (Negative) Ur Leukocyte Esterase (Negative) Urine WBC (0-5) /hpf Urine Bacteria (None) /hpf Urine Mucus (None) /hpf 03/18/20 03/18/2020 Range/Units 06:05 07:15 08:55 RBC (3.80-5.40) m/uL Hgb (11.4-16.0) gm/dL Hct (34.0-46.0) % Plt Count (150-450) k/uL Lymphocytes # (1.0-4.8) k/uL Chloride 111 H (96-109) mmol/L Carbon Dioxide 12.5 L (21.6-31.8) mmol/L Anion Gap 16.50 H (4.00-12.00) mmol/L Glucose 161 H (70-110) mg/dL POC Glucose (mg/dL) 148 H (75-99) mg/dL Calcium 7.6 L (8.7-10.3) mg/dL Urine Appearance Cloudy H (Clear) Urine Protein Trace H (Negative) Urine Ketones 3+ H (Negative) Urine Blood Small H (Negative) Ur Leukocyte Esterase Large H (Negative) Urine WBC 57 H (0-5) /hpf Urine Bacteria Rare H (None) /hpf Urine Mucus Rare H (None) /hpf 03/18/20 Range/Units 11:37 RBC (3.80-5.40) m/uL Hgb (11.4-16.0) gm/dL Hct (34.0-46.0) % Plt Count (150-450) k/uL Lymphocytes # (1.0-4.8) k/uL Chloride (96-109) mmol/L Carbon Dioxide (21.6-31.8) mmol/L Anion Gap (4.00-12.00) mmol/L Glucose (70-110) mg/dL POC Glucose (mg/dL) 151 H (75-99) mg/dL Calcium (8.7-10.3) mg/dL Urine Appearance (Clear) Urine Protein (Negative) Urine Ketones (Negative) Urine Blood (Negative) Ur Leukocyte Esterase (Negative) Urine WBC (0-5) /hpf Urine Bacteria (None) /hpf Urine Mucus (None) /hpf Microbiology - Last 24 Hours (Table) 03/18/20 08:55 Urine Culture - Preliminary Urine,Voided Diabetes panel 03/18/20 Range/Units 06:05 Sodium 140 (135-145) mmol/L Potassium 4.2 (3.5-5.5) mmol/L Chloride 111 H (96-109) mmol/L Carbon Dioxide 12.5 L (21.6-31.8) mmol/L BUN 10.0 (9.0-27.0) mg/dL Creatinine 0.8 (0.6-1.5) mg/dL Glucose 161 H (70-110) mg/dL Calcium 7.6 L (8.7-10.3) mg/dL Calcium panel 03/18/20 Range/Units 06:05 Calcium 7.6 L (8.7-10.3) mg/dL Pituitary panel 03/18/20 Range/Units 06:05 Sodium 140 (135-145) mmol/L Potassium 4.2 (3.5-5.5) mmol/L Chloride 111 H (96-109) mmol/L Carbon Dioxide 12.5 L (21.6-31.8) mmol/L BUN 10.0 (9.0-27.0) mg/dL Creatinine 0.8 (0.6-1.5) mg/dL Glucose 161 H (70-110) mg/dL Calcium 7.6 L (8.7-10.3) mg/dL Adrenal panel 03/18/20 Range/Units 06:05 Sodium 140 (135-145) mmol/L Potassium 4.2 (3.5-5.5) mmol/L Chloride 111 H (96-109) mmol/L Carbon Dioxide 12.5 L (21.6-31.8) mmol/L BUN 10.0 (9.0-27.0) mg/dL Creatinine 0.8 (0.6-1.5) mg/dL Glucose 161 H (70-110) mg/dL Calcium 7.6 L (8.7-10.3) mg/dL - Imaging CT scan - abdomen: report reviewed, image reviewed CT scan - pelvis: report reviewed, image reviewed Assessment and Plan Assessment: impression: Right pyelonephritis. Recurrent urine infections, chronic cystitis. Kidney stones left asymptomatic. Multiple medical illnesses as outlined in the history and physical Recommendations: I'm concerned that she may not be emptying her bladder. I do not think these left renal stones of anything to do with recurrent ear infection level and the present right flank pain. I'm concerned that if she doesn't empty her bladder she is more prone to recurrent infections and may be more prone to recurrent pyelonephritis. I continue to treat her with antibiotics. Whether the culture will be positive or not will be dependent on whether she was given antibiotics in [place]. I will follow this patient with you.
[2020-03-18 16:47] LABS: Glucose,Whole Blood 217 mg/dL (75-99)
[2020-03-18] MEDS: METOPROLOL SUCCINATE (ER) 50 MG TAB.ER.24H PO SCH (20:04)
[2020-03-18] MEDS: ATORVASTATIN 80 MG TAB PO SCH (20:04)
--- NOTE | 2020-03-18 20:44 | CONS ---
CONSULTATION PULMONARY/CRITICAL CARE CONSULTATION: DATE OF CONSULTATION: 03/18/2020 This is a 69-year-old female who apparently presented to the emergency department on March 16 with complaints of possible urinary tract infection. She was apparently transferred from [facility]. She was apparently diagnosed with a urinary tract infection and urosepsis. Cultures were done. She was started on vancomycin and cefepime. She apparently did receive some fluid boluses. Her lactic acid was elevated at 4.2 and her white count was 15. She also had some discomfort on her side. In addition to all this, the patient did admit to some shortness of breath, cough and some tightness in her chest. She had a CT of the abdomen and pelvis which showed a possible lingular infiltrate, and for that reason we were consulted. The chest x-ray was not particularly impressive. She does have pulmonary complaints, though. The patient is feeling a bit better than when she first came in. We were consulted this morning. HOME MEDICATIONS: Current home medications include vitamin D3, Toprol, Antivert, Cortef, glucagon, cranberry, iron, folic acid, probiotic, melatonin, Theragran, potassium, vitamin B1, vitamin B complex, Protonix, Effexor XR, Tylenol, Plavix, magnesium oxide, Zofran, Phenergan syrup, Aldactone and Premarin cream. Other medications are listed. ALLERGIES: ALLERGIES are MULTIPLE, and TOO MANY TO LIST HERE in this dictation. PLEASE SEE THE INITIAL ER NOTATION. MEDICAL HISTORY: Her medical problem list is also quite extensive and includes diabetes, deep venous thrombosis, multiple urinary tract infections, fibromyalgia, hyperlipidemia, hypertension, osteoarthritis, pneumonia, sleep apnea syndrome, for which she sees my partner Dr. Frye, diabetic neuropathy, chronic bronchitis, pyelonephritis/sepsis, nephrolithiasis, adrenal insufficiency, hyperparathyroidism, lower extremity varicosities as well as vertigo. SURGICAL HISTORY: Her surgical history is quite extensive as well. It includes appendectomy, bladder surgery, breast surgery, cholecystectomy, heart catheterization, hysterectomy and tonsillectomy, among other things. SOCIAL HISTORY: Negative for tobacco use. She denies any alcohol use and denies any illicit drug use. FAMILY HISTORY: Positive for father with CAD, CVA, diabetes, myocardial infarction and pneumonia. Mother with uterine cancer. REVIEW OF SYSTEMS: CONSTITUTIONAL: Weakness. NEUROLOGIC: Negative. HEENT: Negative. CARDIOVASCULAR: Negative. PULMONARY: Shortness of breath, cough, chest congestion, wheezing. GI: Negative. : Dysuria, frequency. Foul-smelling urine. Cloudy urine. RHEUMATOLOGIC: Negative. IMMUNOLOGIC: Negative. ENDOCRINOLOGIC: Negative. DERMATOLOGIC: Negative. PHYSICAL EXAMINATION: VITAL SIGNS: Current vital signs are reviewed. They include a temperature of 98.7, heart rate 74, respiratory rate 22, blood pressure 159/76, mean 103, and two-liter saturations of 100%. GENERAL APPEARANCE: Appears in no acute distress. HEENT: Examination is unremarkable. NECK: Supple. Full range of motion. No adenopathy. Neck veins are flat. CARDIOVASCULAR: Examination reveals regular rhythm and rate. S1, S2 normal. No S3, S4 or murmur. LUNGS: Lungs reveal some expiratory wheezes, a few scattered rhonchi. No crackles. ABDOMEN: Soft. Bowel sounds are heard. No masses or tenderness. EXTREMITIES: Intact. There is no cyanosis, clubbing or significant edema. SKIN: Without rash. NEUROLOGIC: Neurologic examination is nonfocal. LABS/IMAGING: Reviewed. White count 7.2, hemoglobin 10.2, hematocrit 32.6, platelet count 140,000. Sodium 140, potassium 4.2, chloride 111, CO2 12.5. Anion gap is 16.5. BUN and creatinine were 10 and 0.8. Glucose 161. Bilirubin 0.3, calcium 7.6, total protein 4.3. Urine is yellow and cloudy. Protein is trace positive for 3+ ketones. Small amount of blood. Nitrite was negative. Leukocyte esterase was large positive. There were 2 RBCs, 57 WBCs and rare urine bacteria. Microbiology is currently pending. A chest x-ray was done. It does not show an acute process. CT scan of the abdomen and pelvis shows a density within the lingula at the base. They were concerned about infiltrate versus mass versus atelectasis. Followup is recommended. ASSESSMENT: 1. Possible lingular pneumonia versus mass versus atelectasis. 2. No history of underlying chronic obstructive pulmonary disease. 3. Urinary tract infection/urosepsis. 4. Multiple other medical problems and comorbidities as listed above. PLAN: The patient will need a follow-up CT scan. We will see her in the office post discharge. Currently the patient is on appropriate medications for her urinary tract infection, which includes ertapenem. Additional recommendations and suggestions are forthcoming. Prognosis is guarded. Respiratory status is reasonably stable. MMODL / IJN: [id number] /
[2020-03-18 20:52] LABS: Glucose,Whole Blood 209 mg/dL (75-99)
[2020-03-18] MEDS ORDERED: LEVOFLOXACIN 750MG-D5W PMX 750 MG in DEXTROSE/WATER 1 150ML.BAG IVPB SCH (21:00)
[2020-03-18 23:13] LABS: Glucose,Whole Blood 183 mg/dL (75-99)
[2020-03-19] MEDS: HYDROmorphone 0.5 MG/0.5 ML SYRINGE IVP PRN ×6 (00:21→21:08)
[2020-03-19] MEDS: METOCLOPRAMIDE 5 MG/ML 2 ML VIAL IVP SCH ×5 (00:21→23:42)
[2020-03-19] MEDS ORDERED: ONDANSETRON 4 MG/2 ML VIAL IVP PRN (01:43)
[2020-03-19] MEDS ORDERED: NALOXONE 0.4 MG/ML 1 ML VIAL IV PRN (01:43)
--- NOTE | 2020-03-19 02:06 | PN ---
PROGRESS NOTE DATE OF SERVICE: 03/18/2020 REASON FOR FOLLOWUP: Urinary tract infection. INTERVAL HISTORY: The patient is afebrile. The patient is breathing slightly comfortably. Denies having any chest pain or shortness of breath. Did have some cough. Abdomen has improved as well as diarrhea. PHYSICAL EXAMINATION: Blood pressure 127/79 with a pulse of 116, temperature 98.1. She is 99% on room air. General description is an elderly female up in the bed in no distress. RESPIRATORY SYSTEM: Unlabored breathing, some coarse breath sounds at the bases. No wheeze. HEART: S1, S2. Regular rate and rhythm. ABDOMEN: Soft, no tenderness. LABS: Urine is positive. Cultures currently pending. DIAGNOSTIC IMPRESSION AND PLAN: Patient with recurrent urinary tract infection, previous culture positive for ESBL. Patient is covered with Invanz to continue while waiting for the culture to finalize. Continue supportive care. MMODL / IJN: [id number] /
[2020-03-19 06:45] LABS: Glucose,Whole Blood 160 mg/dL (75-99)
[2020-03-19] MEDS: ASPIRIN 81 MG PO SCH (07:28)
[2020-03-19] MEDS: MAGNESIUM OXIDE 400 MG TAB PO SCH ×2 (07:28→21:08)
[2020-03-19] MEDS: GABAPENTIN 100 MG CAP PO SCH (07:28)
[2020-03-19] MEDS: HYDROcodone/APAP 10-325MG 1 EACH TAB PO PRN ×3 (07:29→21:08)
[2020-03-19] MEDS: PANTOPRAZOLE 40 MG TABLET PO SCH ×2 (07:29→21:08)
[2020-03-19] MEDS: VENLAFAXINE HCL ER 75 MG CAP PO SCH (07:29)
[2020-03-19] MEDS: lisinopriL 20 MG TAB PO SCH (07:29)
[2020-03-19] MEDS: SPIRONOLACTONE 25 MG TAB PO SCH (07:29)
[2020-03-19] MEDS: CLOPIDOGREL 75 MG TAB PO SCH (07:29)
[2020-03-19] MEDS: INSULIN ASPART (NovoLOG) 100 UNIT/ML VIAL SQ SCH ×4 (07:30→21:09)
[2020-03-19] MEDS: HYDROCORTISONE 10 MG TAB PO SCH ×2 (07:32→11:37)
[2020-03-19] MEDS: IPRATROPIUM-ALBUTEROL 3 ML NEB INHALATION SCH ×4 (07:45→19:32)
[2020-03-19] MEDS: SODIUM CHLORIDE 0.9% 1,000 ML IV SCH (11:40)
[2020-03-19 11:42] LABS: Glucose,Whole Blood 197 mg/dL (75-99)
--- NOTE | 2020-03-19 13:49 | P.PN ---
Subjective Progress Note Date: 03/19/20 Patient was seen at bedside and the she said that she's doing somewhat better today compared to yesterday. That she feels like she is dry. She said whenever she has a urinary tract infection she gets dysarthria. She denies of any new weakness numbness, any visual disturbance. Denies of any slurring her speech. Objective - Vital Signs Vital signs: Vital Signs Temp 97.8 F 03/19/20 07:07 Pulse 74 03/19/20 07:07 Resp 17 03/19/20 07:10 BP 134/76 03/19/20 07:07 Pulse Ox 97 03/19/20 07:07 Intake & Output 03/18/20 03/19/20 03/19/20 18:59 06:59 18:59 Intake Total 540 Output Total 275 Balance 540 -275 Weight 61.235 kg Intake: Oral 540 Output: Urine 275 Other: Voiding Method Bedpan Bedpan Bedpan Diaper Diaper Diaper # Voids 4 1 # Bowel Movements 4 1 - Exam GENERAL: The patient is lying in bed and is not in acute distress. CHEST: The heart rate is regular rate rhythm. No murmurs to auscultation. LUNG: Not labored breathing. ABDOMEN/GI: Bowel sounds present in all 4 quadrants. No tenderness to palpation throughout. NEUROLOGICAL: Higher mental function: The patient is awake, alert, oriented to self, place and time. Patient is following commands. No aphasia and no neglect. Cranial nerves: The pupils are round, equal and reactive to light and accommodation. Visual hinds are full to confrontation throughout. Extraocular movement is intact no nystagmus is noted. Facial sensation is normal to touch throughout. The facial strength is normal throughout. Hearing is normal bilaterally to hand rub. Tongue is midline and moved [id number] without any difficulty. Her tongue is dry. No dysarthria is noted. Shoulder shrug is normal bilaterally. Motor: Gait is defered. The strength is 5 over 5 throughout. Normal tone and bulk. Cerebellum: Normal finger to nose bilaterally. Sensation: Sensation is normal to touch throughout. Reflexes (right/left): 2+ throughout. Plantars are downgoing bilaterally. - Labs CBC & Chem 7: 03/18/20 06:05 03/18/20 06:05 Labs: Abnormal Lab Results - Last 24 Hours (Table) 03/18/20 03/18/20 03/18/20 Range/Units 16:46 20:41 23:12 POC Glucose (mg/dL) 217 H 209 H 183 H (75-99) mg/dL 03/19/20 03/19/20 Range/Units 06:43 11:40 POC Glucose (mg/dL) 160 H 197 H (75-99) mg/dL Microbiology - Last 24 Hours (Table) 03/18/20 08:55 Urine Culture - Preliminary Urine,Voided Assessment and Plan Assessment: Dysarthria are likely due to urinary tract infection (patient denies any episode of dysarthria this time around)---resolved Acute urinary tract infection History of right basal infarct History of bilateral vertebral stenosis History of medical intractable migraine History of recurrent urinary tract infection Diabetes mellitus Hyperlipidemia hypertension Plan: Continue aspirin 81 mg and Plavix 75 mg especially the patient has bilateral vertebral artery stenosis. I'll increase the Lipitor from 40 mg to 80 mg daily. There is no need to repeat the MRI the brain since her last MRI the brain was on 01/28/2020 and ruled out a stroke. Also there is no need to repeat any of the stroke workup since she had the stroke workup the on 01/28/2020. Regarding her headache I will change gabapentin 100 mg 1 tablet TID schedule to PRN. We will defer the management of UTI to the ID team We will follow-up with patient sporadically. Jason Mccord M.D. Neuro-hospitalist Time with Patient: Greater than 30
--- NOTE | 2020-03-19 14:50 | P.PN ---
Subjective Progress Note Date: 03/19/20 Principal diagnosis: Lingular pneumonia versus mass versus atelectasis The patient is seen today on 03/19/2020 in follow-up on the regular medical floor. She is currently resting comfortably in bed. Awake and alert in no acute distress. She denies any worsening shortness of breath, cough or congestion. Maintaining good O2 saturations in the mid 90s on 2 L/m per nasal cannula. Afebrile. Hemodynamically stable. Recent chest x-ray revealed chronic changes and cardiomegaly but no new suspicious acute pulmonary process. Urine culture pending. Glucose 197. Remains on ertapenem. Objective - Vital Signs Vital signs: Vital Signs Temp 97.8 F 03/19/20 07:07 Pulse 74 03/19/20 07:07 Resp 17 03/19/20 07:10 BP 134/76 03/19/20 07:07 Pulse Ox 97 03/19/20 07:07 Intake & Output 03/18/20 03/19/20 03/19/20 18:59 06:59 18:59 Intake Total 540 Output Total 275 Balance 540 -275 Weight 61.235 kg Intake: Oral 540 Output: Urine 275 Other: Voiding Method Bedpan Bedpan Bedpan Diaper Diaper Diaper # Voids 4 1 # Bowel Movements 4 1 - Exam GENERAL EXAM: Alert, active, pleasant 69-year-old female patient, on 2 L nasal cannula, comfortable in no apparent distress. HEAD: Normocephalic. EYES: Normal reaction of pupils, equal size. NOSE: Clear with pink turbinates. THROAT: No erythema or exudates. NECK: No masses, no JVD. CHEST: No chest wall deformity. LUNGS: Equal air entry with no crackles, wheeze, rhonchi or dullness. CVS: S1 and S2 normal with no audible murmur, regular rhythm. ABDOMEN: No hepatosplenomegaly, normal bowel sounds, no guarding or rigidity. SPINE: No scoliosis or deformity SKIN: No rashes CENTRAL NERVOUS SYSTEM: No focal deficits, tone is normal in all 4 extremities. EXTREMITIES: There is no peripheral edema. No clubbing, no cyanosis. Peripheral pulses are intact. - Labs CBC & Chem 7: 03/18/20 06:05 03/18/20 06:05 Labs: Abnormal Lab Results - Last 24 Hours (Table) 0903/18/20 03/18/20 Range/Units 16:46 20:41 23:12 POC Glucose (mg/dL) 217 H 209 H 183 H (75-99) mg/dL 03/19/20 03/19/20 Range/Units 06:43 11:40 POC Glucose (mg/dL) 160 H 197 H (75-99) mg/dL Microbiology - Last 24 Hours (Table) 03/18/20 08:55 Urine Culture - Preliminary Urine,Voided Assessment and Plan Assessment: 1 Acute hypoxemic respiratory failure secondary to possible lingular pneumonia versus mass versus atelectasis 2 No history of underlying chronic obstructive pulmonary disease 3 Urinary tract infection with sepsis 4 Fibromyalgia 5 Obstructive sleep apnea follows at the sleep center 6 Diabetic neuropathy 7 Diabetes mellitus 8 History of DVT 9 Adrenal insufficiency 10 Hyperparathyroidism 11 Vertigo 12 History of nephrolithiasis Plan: The patient was seen and evaluated by Dr. Mccord She is stable from the pulmonary standpoint Plan is to follow-up in the outpatient setting regarding the lingular abnormalities We'll repeat a computed tomography scan then I, the cosigning physician, performed a history & physical examination of the patient. Lungs sounds clear. Maintaining good O2 saturations in the 90s on 2 L per. I discussed the assessment and plan of care with my nurse practitioner, Saba Huggins. I attest to the above note as dictated by her.
[2020-03-19] MEDS: HYDROCORTISONE SUCCINATE 100 MG/2 ML VIAL IV SCH ×2 (15:37→23:43)
[2020-03-19] MEDS: ERTAPENEM 1 GM in SODIUM CHLORIDE 0.9% 50 ML IVPB SCH (15:38)
[2020-03-19 17:00] LABS: Glucose,Whole Blood 214 mg/dL (75-99)
--- NOTE | 2020-03-19 17:08 | CT ---
EXAMINATION TYPE: CT chest wo con DATE OF EXAM: 03/19/2020 COMPARISON: November 18, 2018 HISTORY: pneumonia CT DLP: 395.1 mGycm Automated exposure control for dose reduction was used. Images obtained from the thoracic inlet to the diaphragm without contrast. There is some mild atelectasis at the lung bases. There is no evidence of a pulmonary mass. Heart is borderline enlarged. There are no hilar masses. There is no mediastinal adenopathy. There is mild ple ural thickening in the posterior right lower lobe. There is coronary artery calcification. Thoracic a lee shows no aneurysm. Ascending aorta measures 3.5 cm. There is mild thoracic kyphotic deformity. There is T6 anterior wedging of 20%. There is also T8 mild wedging of 15%. IMPRESSION: There is pleural and pulmonary scarring and atelectasis at the posterior lung bases. The atelectasis is improved compared to old CT scan. No suspicious pulmonary mass. No increasing pulmonary density co mpared to old exam. Mild thoracic compression fractures. There is slight increased kyphotic deformity compared to old exam. Compression fractures not significantly different.
--- NOTE | 2020-03-19 18:27 | PN ---
PROGRESS NOTE DATE OF SERVICE: 03/19/2020 I am covering for Dr. Gonsales. HISTORY OF PRESENT ILLNESS: This is a 69-year-old woman who was admitted with a UTI with sepsis. She is being closely monitored. Patient has been complaining of weakness. Patient complains of weakness and tiredness also. The patient is on broad-spectrum IV antibiotics and cultures are pending at this time. Dr. Osman has seen the patient. Neurology has also seen the patient, as well as Pulmonology. The CT scan showed suspicious mass lesion in the lingular area. No chest pain. No palpitations. PAST MEDICAL HISTORY: Reviewed. REVIEW OF SYSTEMS: CARDIOVASCULAR: No angina. RESPIRATORY: As mentioned earlier. GI: As mentioned earlier. : No dysuria. NERVOUS SYSTEM: No numbness or weakness. CURRENT MEDICATIONS: Reviewed and include Tylenol p.r.n., Mclain 10 mg, DuoNeb q.i.d. and p.r.n., aspirin, Lipitor, Plavix, ertapenem, Neurontin, NovoLog, Zestril, Magnesium oxide, Toprol-XL, Zofran, Protonix, aldactone. Doses reviewed. PHYSICAL EXAM: GENERAL: Patient is alert and oriented times three. Slightly drowsy and weak. VITAL SIGNS: Pulse 74, blood pressure 154/76, respirations 17, temperature 97.8, pulse ox 97% on 2 L. HEENT: Conjunctivae normal. NECK: No jugular venous distention. RESPIRATORY: Breath sounds diminished at the bases. A few scattered rhonchi and crackles. HEART: S1 and S2, muffled. ABDOMEN: Soft, no tenderness. EXTREMITIES: No edema, no swelling. NERVOUS: No focal deficits. LABS: WBC 7.2, hemoglobin 10.2. Sodium 140, potassium 4.2, glucose 180, calcium 7.6, noted. ASSESSMENT: 1. Acute urinary tract infection with sepsis present on admission. 2. Change in mental status with metabolic encephalopathy, possibly secondary to sepsis. 3. Diabetes mellitus type 2. 4. Adrenal cortical insufficiency. 5. History of severe intractable headache and migraine cephalalgia. 6. History of gait dysfunction. 7. 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 8. Chronic obstructive pulmonary disease. 9. History of deep venous thrombosis. 10.Fibromyalgia. 11.Hypertension. 12.Hyperlipidemia. 13.Pneumonia. 14.History of sleep apnea. 15.History of bronchitis. 16.History of hyperparathyroidism. 17.History of exophthalmos. 18.History of degenerative joint disease. 19.History of toe amputation. 20.History of cardiac murmur. 21.History of extended spectrum beta lactamase and Methicillin resistant Staphylococcus aureus. 22.History of cholecystectomy. 23.FULL CODE. RECOMMENDATIONS AND DISCUSSION: I recommend to continue current medications, continue symptomatic treatment. Incentive spirometry. Continue the antibiotics. DVT prophylaxis. Steroids. Prognosis guarded because of multiple complex medical issues. Further recommendations to follow. MMODL / IJN: [id number] / MTDTara
[2020-03-19] MEDS: BUDESONIDE 1 MG/2 ML NEBU INHALATION SCH (19:32)
[2020-03-19 20:48] LABS: Glucose,Whole Blood 215 mg/dL (75-99)
[2020-03-19] MEDS: ATORVASTATIN 80 MG TAB PO SCH (21:08)
[2020-03-19] MEDS: METOPROLOL SUCCINATE (ER) 50 MG TAB.ER.24H PO SCH (21:09)
--- NOTE | 2020-03-20 03:58 | PN ---
PROGRESS NOTE DATE OF SERVICE: 03/19/2020 REASON FOR FOLLOWUP: Sepsis and Gram-negative urinary tract infection. INTERVAL HISTORY: The patient is currently afebrile. The patient has been breathing comfortably. The patient denies having any chest pain or shortness of breath or cough. No nausea, no vomiting. No abdominal pain, no diarrhea. PHYSICAL EXAMINATION: Blood pressure 151/74 with a pulse of 86, temperature 98.2. She is 99% on 2 L nasal cannula. General description is an elderly female lying in bed in no distress. RESPIRATORY SYSTEM: Unlabored breathing, clear to auscultation anteriorly. HEART: S1, S2. Regular rate and rhythm. ABDOMEN: Soft, no tenderness. LABS: No new labs been obtained today. Blood culture has been negative so far. DIAGNOSTIC IMPRESSION AND PLAN: Patient with recurrent urinary tract infection, thought to be related to incomplete emptying of the bladder. The patient is currently covered with Invanz. Will try to get the culture done at the [facility] to determine discharge antibiotics. Continue supportive care. MMODL / IJN: [id number] /
[2020-03-20] MEDS: HYDROmorphone 0.5 MG/0.5 ML SYRINGE IVP PRN ×5 (04:13→21:31)
[2020-03-20] MEDS: METOCLOPRAMIDE 5 MG/ML 2 ML VIAL IVP SCH ×3 (05:48→16:35)
[2020-03-20 07:12] LABS: Glucose,Whole Blood 239 mg/dL (75-99)
--- NOTE | 2020-03-20 07:36 | P.PN ---
Subjective Progress Note Date: 03/20/20 the patient is in the hospital with presumed urinary tract infection. Her cultures both blood and urine are negative however she may have been on antibiotics up in [place] that wouldn't negate a positive culture. She is still having some discomfort. Her white blood cell count is normal. She is afebrile. There is nothing urologic needs to be done. Objective - Vital Signs Vital signs: Vital Signs Temp 98.3 F 03/20/20 01:57 Pulse 87 03/20/20 01:57 Resp 20 03/20/20 03:09 BP 141/69 03/20/20 01:57 Pulse Ox 96 03/20/20 01:57 Intake & Output 03/19/20 03/20/20 03/20/20 18:59 06:59 18:59 Intake Total 120 Output Total 250 650 Balance -250 -530 Intake: Intake, IV Titration 120 Amount Sodium Chloride 0.9% 1, 120 000 ml @ 20 mls/hr IV . Q24H [facility] Rx#:[id number] Output: Urine 250 650 Other: Voiding Method Bedpan Bedpan Diaper Diaper # Voids 2 - Labs CBC & Chem 7: 03/18/20 06:05 03/18/20 06:05 Labs: Abnormal Lab Results - Last 24 Hours (Table) 03/19/20 03/19/20 03/19/20 Range/Units 11:40 16:57 20:46 POC Glucose (mg/dL) 197 H 214 H 215 H (75-99) mg/dL 03/20/20 Range/Units 07:10 POC Glucose (mg/dL) 239 H (75-99) mg/dL Microbiology - Last 24 Hours (Table) 03/18/20 16:47 Blood Culture - Preliminary Blood No Growth after 24 hours 03/18/20 16:35 Blood Culture - Preliminary Blood No Growth after 24 hours 03/18/20 08:55 Urine Culture - Final Urine,Voided
[2020-03-20] MEDS: ASPIRIN 81 MG PO SCH (07:43)
[2020-03-20] MEDS: VENLAFAXINE HCL ER 75 MG CAP PO SCH (07:43)
[2020-03-20] MEDS: lisinopriL 20 MG TAB PO SCH (07:43)
[2020-03-20] MEDS: SPIRONOLACTONE 25 MG TAB PO SCH (07:43)
[2020-03-20] MEDS: PANTOPRAZOLE 40 MG TABLET PO SCH (07:44)
[2020-03-20] MEDS: CLOPIDOGREL 75 MG TAB PO SCH (07:44)
[2020-03-20] MEDS: MAGNESIUM OXIDE 400 MG TAB PO SCH ×2 (07:44→21:34)
[2020-03-20] MEDS: HYDROCORTISONE SUCCINATE 100 MG/2 ML VIAL IV SCH ×2 (07:45→16:31)
[2020-03-20] MEDS: INSULIN ASPART (NovoLOG) 100 UNIT/ML VIAL SQ SCH ×4 (07:46→21:32)
[2020-03-20 07:54] LABS: Basophils % (A) 0 %; Eosinophils % (A) 0 %; HCT 31.5 % (34.0-46.0); HGB 9.8 gm/dL (11.4-16.0); Hypochromasia Slight; Lymphocytes # (A) 0.5 k/uL (1.0-4.8); Lymphocytes % (A) 13 %; MCH 27.9 pg (25.0-35.0); MCHC 31.2 g/dL (31.0-37.0); MCV 89.2 fL (80.0-100.0); Mean Platelet Volume 7.9; Monocytes # (A) 0.2 k/uL (0-1.0); Monocytes % (A) 4 %; Neutrophils # (A) 3.1 k/uL (1.3-7.7); Neutrophils % (A) 81 %; Platelet Count 181 k/uL (150-450); RBC 3.53 m/uL (3.80-5.40); RDW 13.8 % (11.5-15.5); WBC 3.9 k/uL (3.8-10.6)
[2020-03-20] MEDS: BUDESONIDE 1 MG/2 ML NEBU INHALATION SCH ×2 (08:00→20:02)
[2020-03-20] MEDS: IPRATROPIUM-ALBUTEROL 3 ML NEB INHALATION SCH ×4 (08:00→20:02)
[2020-03-20 11:19] LABS: Glucose,Whole Blood 251 mg/dL (75-99)
[2020-03-20] MEDS: MULTIVITAMINS, THERA 1 EACH TAB PO SCH (11:52)
[2020-03-20] MEDS: FOLIC ACID 1 MG TAB PO SCH (11:53)
[2020-03-20] MEDS: THIAMINE 100 MG TAB PO SCH (11:53)
[2020-03-20] MEDS: SODIUM CHLORIDE 0.9% 1,000 ML IV SCH (11:54)
--- NOTE | 2020-03-20 11:58 | P.PN ---
Subjective Progress Note Date: 03/20/20 She was seen at bedside and she said that she's doing the better today compared to yesterday or the day prior. She denies any slurring the speech. Denies any weakness any numbness any visual disturbance. Objective - Vital Signs Vital signs: Vital Signs Temp 98.1 F 03/20/20 07:00 Pulse 84 03/20/20 08:15 Resp 17 03/20/20 07:30 BP 153/90 03/20/20 07:00 Pulse Ox 100 03/20/20 07:00 Intake & Output 03/19/20 03/20/20 03/20/20 18:59 06:59 18:59 Intake Total 120 Output Total 250 650 Balance -250 -530 Intake: Intake, IV Titration 120 Amount Sodium Chloride 0.9% 1, 120 000 ml @ 20 mls/hr IV . Q24H [facility] Rx#:[id number] Output: Urine 250 650 Other: Voiding Method Bedpan Bedpan Bedpan Diaper Diaper Diaper # Voids 2 - Exam GENERAL: The patient is lying in bed and is not in acute distress. CHEST: The heart rate is regular rate rhythm. No murmurs to auscultation. LUNG: Not labored breathing. ABDOMEN/GI: Bowel sounds present in all 4 quadrants. No tenderness to palpation throughout. NEUROLOGICAL: Higher mental function: The patient is awake, alert, oriented to self, place and time. Patient is following commands. No aphasia and no neglect. Cranial nerves: The pupils are round, equal and reactive to light and accommodation. Visual hinds are full to confrontation throughout. Extraocular movement is intact no nystagmus is noted. Facial sensation is normal to touch throughout. The facial strength is normal throughout. Hearing is normal bilaterally to hand rub. Tongue is midline and moved [id number] without any difficulty. No dysarthria is noted. Shoulder shrug is normal bilaterally. Motor: Gait is defered. The strength is 5 over 5 throughout. Normal tone and bulk. Cerebellum: Normal finger to nose bilaterally. Sensation: Sensation is normal to touch throughout. Reflexes (right/left): 2+ throughout. Plantars are downgoing bilaterally. - Labs CBC & Chem 7: 03/20/20 07:11 03/18/20 06:05 Labs: Abnormal Lab Results - Last 24 Hours (Table) 03/19/20 03/19/2003/20/20 Range/Units 16:57 20:46 07:10 RBC (3.80-5.40) m/uL Hgb (11.4-16.0) gm/dL Hct (34.0-46.0) % Lymphocytes # (1.0-4.8) k/uL POC Glucose (mg/dL) 214 H 215 H 239 H (75-99) mg/dL 03/20/20 03/20/20 Range/Units 07:11 11:18 RBC 3.53 L (3.80-5.40) m/uL Hgb 9.8 L (11.4-16.0) gm/dL Hct 31.5 L (34.0-46.0) % Lymphocytes # 0.5 L (1.0-4.8) k/uL POC Glucose (mg/dL) 251 H (75-99) mg/dL Microbiology - Last 24 Hours (Table) 03/18/20 16:47 Blood Culture - Preliminary Blood No Growth after 24 hours 03/18/20 16:35 Blood Culture - Preliminary Blood No Growth after 24 hours 03/18/20 08:55 Urine Culture - Final Urine,Voided Assessment and Plan Assessment: Dysarthria are likely due to urinary tract infection (patient denies any episode of dysarthria this time around)---resolved Acute urinary tract infection History of right basal infarct History of bilateral vertebral stenosis History of medical intractable migraine History of recurrent urinary tract infection Diabetes mellitus Hyperlipidemia hypertension Plan: Continue aspirin 81 mg and Plavix 75 mg especially the patient has bilateral vertebral artery stenosis. I'll increase the Lipitor from 40 mg to 80 mg daily. There is no need to repeat the MRI the brain since her last MRI the brain was on 01/28/2020 and ruled out a stroke. Also there is no need to repeat any of the stroke workup since she had the stroke workup the on 01/28/2020. On gabapentin 100 mg 1 tablet TID PRN for headache. We will defer the management of UTI to the ID team We will follow-up with patient sporadically. Jason Mccord M.D. Neuro-hospitalist
[2020-03-20 12:38] LABS: African American GFR (CKD) 86.6 (60.0-200.0); Albumin 3.2 g/dL (3.80-4.90); Albumin/Globulin Ratio 1.88 (1.60-3.17); BUN/Creat Ratio 17.5 Ratio (12.00-20.00); Calcium 8.4 mg/dL (8.7-10.3); Globulin 1.7 g/dL (1.6-3.3); Non-African American GFR(CKD) 74.7 (60.0-200.0); Potassium 4.5 mmol/L (3.5-5.5); Total Bilirubin 0.2 mg/dL (0.2-1.2); Total Protein 4.9 g/dL (6.2-8.2)
--- NOTE | 2020-03-20 14:13 | P.PN ---
Subjective Progress Note Date: 03/20/20 Principal diagnosis: Lingular pneumonia, versus mass versus atelectasis This is a 69-year-old white female patient of Dr. Gonsales, that came into the hospital on 03/16/2020 as a transfer from [place] emergency department, with complaints of possible urinary tract infection and sepsis, patient was complaining of dysuria. In the emergency department she was started on a combin ation of cefepime and vancomycin, she required fluid boluses for elevated lactic acid of 4.2, she did have leukocytosis, tachycardia. Patient has had a history of previous urinary tract infections. Ultrasound the kidneys and bladder showed bilateral renal cortical cysts, no evidence of hydronephrosis. CT of abdomen and pelvis was obtained showing limited CT sections from the lung bases, showing some minimal compressive atelectasis within the posterior medial right lung base, and a small density in the lingula measuring 1.3 cm, that could be related to atelectasis, and underlying mass was not completely excluded. Chest x-ray was obtained showing chronic changes and cardiomegaly without new suspicious acute pulmonary process, on presentation patient denied any pulmonary complaints, no cough or congestion, she did have some increased ingestion and wheezing yesterday, but not on presentation, dedicated CT chest was obtained showing pleural and pulmonary scarring and atelectasis at the posterior lung bases, no suspicious pulmonary mass, no increasing pulmonary density, mild thoracic compression fractures. Her white count is improving, is 3.9 on today's labs, hemoglobin is 9.8, sodium is 142, potassium is 4.5, chloride is 108, BUN is 14 creatinine 0.8. Patient's urinalysis showed large amount of leuk trase, increased white blood cells and bacteria. Urine culture showed no growth, blood cultures have been negative to date, in addition patient is being seen by neurology in view of some slurring in her speech that was present on admission. Patient continues on ertapenem for urinary tract infection, and ID service is following Objective - Vital Signs Vital signs: Vital Signs Temp 98.1 F 03/20/20 07:00 Pulse 84 03/20/20 11:40 Resp 17 03/20/20 07:30 BP 153/90 03/20/20 07:00 Pulse Ox 100 03/20/20 07:00 Intake & Output 03/19/20 03/20/20 03/20/20 18:59 06:59 18:59 Intake Total 120 Output Total 250 650 Balance -250 -530 Weight 61.235 kg Intake: Intake, IV Titration 120 Amount Sodium Chloride 0.9% 1, 120 000 ml @ 20 mls/hr IV . Q24H [facility] Rx#:[id number] Output: Urine 250 650 Other: Voiding Method Bedpan Bedpan Bedpan Diaper Diaper Diaper # Voids 2 - Exam GENERAL EXAM: Alert, very pleasant, 69-year-old white female, on 2 L of oxygen pulse ox of 100% comfortable in no apparent distress. HEAD: Normocephalic/atraumatic. EYES: Normal reaction of pupils, equal size. Conjunctiva pink, sclera white. NOSE: Clear with pink turbinates. THROAT: No erythema or exudates. NECK: No masses, no JVD, no thyroid enlargement, no adenopathy. CHEST: No chest wall deformity. Symmetrical expansion. LUNGS: Equal air entry with mild wheezes but no crackles, rhonchi or dullness. CVS: Regular rate and rhythm, normal S1 and S2, no gallops, no murmurs, no rubs ABDOMEN: Soft, nontender. No hepatosplenomegaly, normal bowel sounds, no guarding or rigidity. EXTREMITIES: No clubbing, no edema, no cyanosis, 2+ pulses and upper and lower extremities. MUSCULOSKELETAL: Muscle strength and tone normal. SPINE: No scoliosis or deformity SKIN: No rashes CENTRAL NERVOUS SYSTEM: Alert and oriented -3. No focal deficits, tone is normal in all 4 extremities. PSYCHIATRIC: Alert and oriented -3. Appropriate affect. Intact judgment and insight. - Labs CBC & Chem 7: 03/20/20 07:11 03/20/20 07:11 Labs: Abnormal Lab Results - Last 24 Hours (Table) 03/19/20 03/19/20 03/20/20 Range/Units 16:57 20:46 07:10 RBC (3.80-5.40) m/uL Hgb (11.4-16.0) gm/dL Hct (34.0-46.0) % Lymphocytes # (1.0-4.8) k/uL Carbon Dioxide (21.6-31.8) mmol/L Anion Gap (4.00-12.00) mmol/L Glucose (70-110) mg/dL POC Glucose (mg/dL) 214 H 215 H 239 H (75-99) mg/dL Calcium (8.7-10.3) mg/dL Total Protein (6.2-8.2) g/dL Albumin (3.80-4.90) g/dL 03/20/20 03/20/20 03/20/20 Range/Units 07:11 07:11 11:18 RBC 3.53 L (3.80-5.40) m/uL Hgb 9.8 L (11.4-16.0) gm/dL Hct 31.5 L (34.0-46.0) % Lymphocytes # 0.5 L (1.0-4.8) k/uL Carbon Dioxide 19.0 L (21.6-31.8) mmol/L Anion Gap 15.00 H (4.00-12.00) mmol/L Glucose 245 H (70-110) mg/dL POC Glucose (mg/dL) 251 H (75-99) mg/dL Calcium 8.4 L (8.7-10.3) mg/dL Total Protein 4.9 L (6.2-8.2) g/dL Albumin 3.20 L (3.80-4.90) g/dL Microbiology - Last 24 Hours (Table) 03/18/20 16:47 Blood Culture - Preliminary Blood No Growth after 24 hours 03/18/20 16:35 Blood Culture - Preliminary Blood No Growth after 24 hours 03/18/20 08:55 Urine Culture - Final Urine,Voided Assessment and Plan Plan: Assessment: #1. Acute hypoxic respiratory failure possibly related to sepsis, and there was a questionable lingular density raising possibility of atelectasis versus pneumonia versus pulmonary mass, however dedicated CT of the chest was obtained showing no suspicious pulmonary mass, no increasing pulmonary density, and showed some pleural and pulmonary scarring and atelectasis at the posterior lung bases. #2. Acute urinary tract infection with sepsis, with negative blood and urine cultures, currently on ertapenem #3. History of previous urinary tract infections #4. Episode of slurred speech, neurology is following, last MRI of the brain on 01/28/2020 ruled out a stroke #5. History of right basal infarct #6. History of intractable migraine headaches #7. Diabetes mellitus type 2 #8. Hypertension Plan: CT chest has been reviewed, showing no acute pulmonary process, no evidence of pulmonary masses, and only showing some pulmonary scarring and atelectasis at the posterior lung bases, continue nebulized bronchodilators, patient is being treated for acute urinary tract infection, vital signs have been stable, maintai n aspiration precautions, encouraged the patient to set up in the chair, deep breathe and cough, wean FiO2. We'll continue to follow I performed a history & physical examination of the patient and discussed their management with my nurse practitioner, Quiana Chávez. I reviewed the nurse practitioner's note and agree with the documented findings and plan of care. Lung sounds are positive for mild wheezes. The findings and the impression was discussed with the patient. I attest to the documentation by the nurse practitioner. Time with Patient: Less than 30
[2020-03-20 16:27] LABS: Glucose,Whole Blood 284 mg/dL (75-99)
[2020-03-20] MEDS: ERTAPENEM 1 GM in SODIUM CHLORIDE 0.9% 50 ML IVPB SCH (16:33)
--- NOTE | 2020-03-20 16:44 | PN ---
PROGRESS NOTE DATE OF SERVICE: 03/20/2020 This 69-year-old woman who was admitted with acute UTI with possible sepsis also had change in mental status. The patient also was thought to have a lingular mass versus atelectasis. CT scan did not show any acute abnormality. Cultures are pending at this time. Patient is being closely monitored. Past medical history reviewed. REVIEW OF SYSTEMS: CARDIOVASCULAR SYSTEM: No angina, palpitations. RESPIRATORY SYSTEM: As mentioned earlier. GI: As mentioned earlier. : No dysuria or retention. NERVOUS SYSTEM: No numbness, weakness. CURRENT MEDICATIONS: Reviewed. They include: 1. Tylenol. 2. [place]. 3. DuoNeb. 4. Aspirin. 5. Lipitor. 6. Pulmicort. 7. Plavix. 8. Ertapenem 1 gram. 9. Neurontin. 10.Solu-Cortef 100 mg. 11.Dilaudid. 12.Zestril. 13.Magnesium oxide. 14.Reglan. 15.Toprol-XL. 16.Narcan. 17.Protonix. 18.Aldactone. 19.Vitamin B1. 20.Effexor XR. PHYSICAL EXAMINATION: Patient is alert, oriented x3. Pulse is 84, blood pressure 153/90, respiration 17, temperature 98.1, pulse ox 100% on room air. HEENT: Conjunctivae normal. NECK: No jugular venous distention. CARDIOVASCULAR SYSTEM: S1, S2 muffled. RESPIRATORY SYSTEM: Breath sounds diminished at the bases. A few scattered rhonchi and crackles. ABDOMEN: Soft, non-tender. LEGS: No edema. No swelling. NERVOUS SYSTEM: No focal deficit. LABS: Labs at this time show WBC 3.9, hemoglobin 9.8. Glucose noted. ASSESSMENT: 1. Acute urinary tract infection with sepsis, present on admission, with some change in mental status, acute metabolic encephalopathy secondary to sepsis. 2. Diabetes mellitus, type 2. 3. Lingular opacity; possible atelectasis. 4. Adrenocortical insufficiency. 5. Severe intractable headache and migraine cephalalgia. 6. History of gait dysfunction. 7. 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 8. Chronic obstructive pulmonary disease. 9. History of deep vein thrombosis. 10.Fibromyalgia. 11.Hypertension. 12.Hyperlipidemia. 13.History of pneumonia. 14.History of sleep apnea. 15.History of bronchitis. 16.History of hyperparathyroidism. 17.History exophthalmos. 18.History of degenerative joint disease. 19.History of toe amputation. 20.History of cardiac murmur. 21.History of extended-spectrum beta-lactamase and methicillin-resistant Staphylococcus aeruginosa. 22.History of cholecystectomy. 23.FULL CODE. RECOMMENDATIONS AND DISCUSSION: I recommend to continue current medications, continue with the monitoring, symptomatic treatment. Continue with antibiotics. Follow the cultures. Bronchodilators. Continue steroids. Monitor blood sugars closely. Blood sugars are slightly elevated. The patient was taking Levemir 25 units subcutaneously at bedtime. I would recommend restarting Levemir. Continue to monitor. Further recommendations to follow. MMODL / IJN: [id number] /
[2020-03-20 20:39] LABS: Glucose,Whole Blood 370 mg/dL (75-99)
--- NOTE | 2020-03-20 20:50 | PN ---
PROGRESS NOTE DATE OF SERVICE: 03/20/2020 REASON FOR FOLLOWUP: Recurrent urinary tract infection. INTERVAL HISTORY: Patient is currently afebrile. The patient is breathing comfortably. The patient denies having any chest pain, shortness of breath or cough. No nausea, vomiting or diarrhea. PHYSICAL EXAMINATION: Blood pressure is 139/77 with a pulse of 90, temperature 98.2. She is 100% on 2 L nasal cannula. General description is an elderly female lying in bed in no distress. Respiratory system: Unlabored breathing, clear to auscultation anteriorly. Heart S1, S2. Regular rate and rhythm. ABDOMEN: Soft, no tenderness. EXTREMITIES: No edema of the feet. LABS: Hemoglobin is 9.8, white count 3.9, BUN of 14, creatinine 0.8. Urine culture has been negative. We were not able to get blood and urine culture report from the [facility]. DIAGNOSTIC IMPRESSION AND PLAN: Patient with recurrent urinary tract infection in this patient who presented to the hospital with an episode of urinary tract infection and abscess. Culture here has been negative so far. Previous culture positive for ESBL. The patient is covered with Angella Joy. We will try to obtain culture from the [facility] to determine discharge antibiotics. Continue supportive care. MMODL / IJN: [id number] /
[2020-03-20] MEDS: PANTOPRAZOLE 40 MG/10 ML VIAL IVP SCH (21:31)
[2020-03-20] MEDS: METOPROLOL SUCCINATE (ER) 50 MG TAB.ER.24H PO SCH (21:32)
[2020-03-20] MEDS: ATORVASTATIN 80 MG TAB PO SCH (21:32)
[2020-03-20] MEDS: INSULIN DETEMIR (LEVEMIR) 100 UNIT/ML SYR SQ SCH (21:32)
[2020-03-20] MEDS: HEPARIN SODIUM,PORCINE 5,000 UNIT/ML 1 ML VIAL SQ SCH (21:32)
[2020-03-21] MEDS: HYDROCORTISONE SUCCINATE 100 MG/2 ML VIAL IV SCH ×4 (00:22→23:07)
[2020-03-21] MEDS: METOCLOPRAMIDE 5 MG/ML 2 ML VIAL IVP SCH ×5 (00:22→23:07)
[2020-03-21] MEDS: HYDROmorphone 0.5 MG/0.5 ML SYRINGE IVP PRN (01:56)
[2020-03-21] MEDS: HYDROcodone/APAP 10-325MG 1 EACH TAB PO PRN ×4 (05:42→23:06)
[2020-03-21 06:40] LABS: Basophils % (A) 0 %; Eosinophils # (A) 0.1 k/uL (0-0.7); Eosinophils % (A) 2 %; HCT 29.7 % (34.0-46.0); HGB 9.7 gm/dL (11.4-16.0); Hypochromasia Slight; Lymphocytes # (A) 0.6 k/uL (1.0-4.8); Lymphocytes % (A) 12 %; MCH 28.3 pg (25.0-35.0); MCHC 32.5 g/dL (31.0-37.0); MCV 87.1 fL (80.0-100.0); Monocytes # (A) 0.4 k/uL (0-1.0); Monocytes % (A) 7 %; Neutrophils % (A) 78 %; Platelet Count 182 k/uL (150-450); RBC 3.41 m/uL (3.80-5.40); WBC 5.2 k/uL (3.8-10.6)
[2020-03-21 07:17] LABS: Glucose,Whole Blood 254 mg/dL (75-99)
[2020-03-21] MEDS: INSULIN ASPART (NovoLOG) 100 UNIT/ML VIAL SQ SCH ×4 (07:36→20:45)
[2020-03-21] MEDS: PANTOPRAZOLE 40 MG/10 ML VIAL IVP SCH ×2 (07:36→20:43)
[2020-03-21] MEDS: HEPARIN SODIUM,PORCINE 5,000 UNIT/ML 1 ML VIAL SQ SCH ×2 (07:37→20:43)
[2020-03-21] MEDS: lisinopriL 20 MG TAB PO SCH (07:37)
[2020-03-21] MEDS: ASPIRIN 81 MG PO SCH (07:37)
[2020-03-21] MEDS: SPIRONOLACTONE 25 MG TAB PO SCH (07:37)
[2020-03-21] MEDS: CLOPIDOGREL 75 MG TAB PO SCH (07:37)
[2020-03-21] MEDS: MAGNESIUM OXIDE 400 MG TAB PO SCH ×2 (07:37→20:44)
[2020-03-21] MEDS: BUDESONIDE 1 MG/2 ML NEBU INHALATION SCH ×2 (08:48→21:11)
[2020-03-21] MEDS: IPRATROPIUM-ALBUTEROL 3 ML NEB INHALATION SCH ×4 (08:48→21:11)
[2020-03-21 09:13] LABS: African American GFR (CKD) 101.7 (60.0-200.0); Albumin 3.2 g/dL (3.80-4.90); Albumin/Globulin Ratio 2.13 (1.60-3.17); Anion Gap 8.4 mmol/L (4.00-12.00); BUN/Creat Ratio 22.86 Ratio (12.00-20.00); Calcium 8.3 mg/dL (8.7-10.3); Carbon Dioxide 27.6 mmol/L (21.6-31.8); Globulin 1.5 g/dL (1.6-3.3); Non-African American GFR(CKD) 87.8 (60.0-200.0); Potassium 3.9 mmol/L (3.5-5.5); Total Bilirubin 0.2 mg/dL (0.2-1.2); Total Protein 4.7 g/dL (6.2-8.2)
--- NOTE | 2020-03-21 10:35 | P.PN ---
Subjective Progress Note Date: 03/21/20 The patient is in the hospital with a urinary tract infection with sepsis, pyelonephritis. Nothing urologic needs to be done. She does have stones but they're nonobstructing and small. She is feeling better. From urologic standpoint nothing needs to be done and I will sign off the case unless further urologic problems arise. Objective - Vital Signs Vital signs: Vital Signs Temp 99.4 F 03/21/20 07:00 Pulse 80 03/21/20 08:48 Resp 16 03/21/20 07:00 BP 171/84 03/21/20 07:00 Pulse Ox 100 03/21/20 07:00 Intake & Output 03/20/20 03/21/20 03/21/20 18:59 06:59 18:59 Intake Total 200 280 Balance 200 280 Weight 61.235 kg Intake: Intake, IV Titration 80 Amount Sodium Chloride 0.9% 1, 80 000 ml @ 20 mls/hr IV . Q24H [facility] Rx#:[id number] Oral 200 200 Other: Voiding Method Bedpan Bedpan Diaper Diaper # Voids 2 1 # Bowel Movements 1 1 - Labs CBC & Chem 7: 03/21/20 06:06 03/21/20 06:06 Labs: Abnormal Lab Results - Last 24 Hours (Table) 03/20/20 03/20/20 03/20/20 Range/Units 07:11 11:18 16:25 RBC (3.80-5.40) m/uL Hgb (11.4-16.0) gm/dL Hct (34.0-46.0) % Lymphocytes # (1.0-4.8) k/uL Carbon Dioxide 19.0 L (21.6-31.8) mmol/L Anion Gap 15.00 H (4.00-12.00) mmol/L BUN/Creatinine Ratio (12.00-20.00) Ratio Glucose 245 H (70-110) mg/dL POC Glucose (mg/dL) 251 H 284 H (75-99) mg/dL Calcium 8.4 L (8.7-10.3) mg/dL Total Protein 4.9 L (6.2-8.2) g/dL Albumin 3.20 L (3.80-4.90) g/dL Globulin (1.6-3.3) g/dL 03/20/20 03/21/20 03/21/20 Range/Units 20:38 06:06 06:06 RBC 3.41 L (3.80-5.40) m/uL Hgb 9.7 L (11.4-16.0) gm/dL Hct 29.7 L (34.0-46.0) % Lymphocytes # 0.6 L (1.0-4.8) k/uL Carbon Dioxide (21.6-31.8) mmol/L Anion Gap (4.00-12.00) mmol/L BUN/Creatinine Ratio 22.86 H (12.00-20.00) Ratio Glucose 249 H (70-110) mg/dL POC Glucose (mg/dL) 370 H (75-99) mg/dL Calcium 8.3 L (8.7-10.3) mg/dL Total Protein 4.7 L (6.2-8.2) g/dL Albumin 3.20 L (3.80-4.90) g/dL Globulin 1.5 L (1.6-3.3) g/dL 03/21/20 Range/Units 07:15 RBC (3.80-5.40) m/uL Hgb (11.4-16.0) gm/dL Hct (34.0-46.0) % Lymphocytes # (1.0-4.8) k/uL Carbon Dioxide (21.6-31.8) mmol/L Anion Gap (4.00-12.00) mmol/L BUN/Creatinine Ratio (12.00-20.00) Ratio Glucose (70-110) mg/dL POC Glucose (mg/dL) 254 H (75-99) mg/dL Calcium (8.7-10.3) mg/dL Total Protein (6.2-8.2) g/dL Albumin (3.80-4.90) g/dL Globulin (1.6-3.3) g/dL Microbiology - Last 24 Hours (Table) 03/18/20 16:47 Blood Culture - Preliminary Blood No Growth after 48 hours 03/18/20 16:35 Blood Culture - Preliminary Blood No Growth after 48 hours
[2020-03-21 11:30] LABS: Glucose,Whole Blood 138 mg/dL (75-99)
[2020-03-21] MEDS: THIAMINE 100 MG TAB PO SCH (11:44)
[2020-03-21] MEDS: FOLIC ACID 1 MG TAB PO SCH (11:45)
[2020-03-21] MEDS: MULTIVITAMINS, THERA 1 EACH TAB PO SCH (11:45)
[2020-03-21] MEDS: SODIUM CHLORIDE 0.9% 1,000 ML IV SCH (11:46)
--- NOTE | 2020-03-21 14:45 | P.PN ---
Subjective Progress Note Date: 03/21/20 Principal diagnosis: Lingular pneumonia versus mass versus atelectasis See shubham 69-year-old female patient who was originally admitted for urinary tract infection with sepsis. She's been seen by our group for very minimal compressive atelectasis noted in the lingular area on a computed tomography scan of the abdomen. A follow-up CAT scan of the chest did not reveal any evidence of significant atelectasis. There is some pulmonary scarring no suspicious mass no increased pulmonary density. Presently she is resting quite comfortably in bed. Awake and alert in no acute distress. Urine culture revealed no growth. Blood cultures revealed no growth. Maintaining O2 saturations up to 100% on 2 L/m per nasal cannula. Afebrile. White count 5.2. Hemoglobin 9.7. Sodium 142. Potassium 3.9. Creatinine 0.7. She remains on DuoNeb inhalations, Pulmicort inhalations, antibiotics in the form of ertapenem. Objective - Vital Signs Vital signs: Vital Signs Temp 99.4 F 03/21/20 07:00 Pulse 88 03/21/20 13:33 Resp 16 03/21/20 07:00 BP 171/84 03/21/20 07:00 Pulse Ox 100 03/21/20 07:00 Intake & Output 03/20/20 03/21/20 03/21/20 18:59 06:59 18:59 Intake Total 200 280 Balance 200 280 Weight 61.235 kg Intake: Intake, IV Titration 80 Amount Sodium Chloride 0.9% 1, 80 000 ml @ 20 mls/hr IV . Q24H [facility] Rx#:[id number] Oral 200 200 Other: Voiding Method Bedpan Bedpan Diaper Diaper # Voids 2 1 # Bowel Movements 1 1 - Exam GENERAL EXAM: Alert, active, shubham 69-year-old female patient, on 2 L nasal cannula, comfortable in no apparent distress. HEAD: Normocephalic. EYES: Normal reaction of pupils, equal size. NOSE: Clear with pink turbinates. THROAT: No erythema or exudates. NECK: No masses, no JVD. CHEST: No chest wall deformity. LUNGS: Equal air entry with no crackles, wheeze, rhonchi or dullness. CVS: S1 and S2 normal with no audible murmur, regular rhythm. ABDOMEN: No hepatosplenomegaly, normal bowel sounds, no guarding or rigidity. SPINE: No scoliosis or deformity SKIN: No rashes CENTRAL NERVOUS SYSTEM: No focal deficits, tone is normal in all 4 extremities. EXTREMITIES: There is no peripheral edema. No clubbing, no cyanosis. Peripheral pulses are intact. - Labs CBC & Chem 7: 03/21/20 06:06 03/21/20 06:06 Labs: Abnormal Lab Results - Last 24 Hours (Table) 03/20/20 03/20/20 03/21/20 Range/Units 16:25 20:38 06:06 RBC 3.41 L (3.80-5.40) m/uL Hgb 9.7 L (11.4-16.0) gm/dL Hct 29.7 L (34.0-46.0) % Lymphocytes # 0.6 L (1.0-4.8) k/uL BUN/Creatinine Ratio (12.00-20.00) Ratio Glucose (70-110) mg/dL POC Glucose (mg/dL) 284 H 370 H (75-99) mg/dL Calcium (8.7-10.3) mg/dL Total Protein (6.2-8.2) g/dL Albumin (3.80-4.90) g/dL Globulin (1.6-3.3) g/dL 03/21/20 03/21/20 03/21/20 Range/Units 06:06 07:15 11:29 RBC (3.80-5.40) m/uL Hgb (11.4-16.0) gm/dL Hct (34.0-46.0) % Lymphocytes # (1.0-4.8) k/uL BUN/Creatinine Ratio 22.86 H (12.00-20.00) Ratio Glucose 249 H (70-110) mg/dL POC Glucose (mg/dL) 254 H 138 H (75-99) mg/dL Calcium 8.3 L (8.7-10.3) mg/dL Total Protein 4.7 L (6.2-8.2) g/dL Albumin 3.20 L (3.80-4.90) g/dL Globulin 1.5 L (1.6-3.3) g/dL Microbiology - Last 24 Hours (Table) 03/18/20 16:47 Blood Culture - Preliminary Blood No Growth after 48 hours 03/18/20 16:35 Blood Culture - Preliminary Blood No Growth after 48 hours Assessment and Plan Assessment: 1 Acute hypoxemic respiratory failure secondary to possible lingular pneumonia versus mass versus atelectasis and a follow-up computed tomography scan of the chest did not reveal any acute pulmonary process 2 No history of underlying chronic obstructive pulmonary disease 3 Urinary tract infection with sepsis 4 Fibromyalgia 5 Obstructive sleep apnea follows at the sleep center 6 Diabetic neuropathy 7 Diabetes mellitus 8 History of DVT 9 Adrenal insufficiency 10 Hyperparathyroidism 11 Vertigo 12 History of nephrolithiasis Plan: The patient was seen and evaluated by Dr. Mccord She is stable from the pulmonary standpoint Titrate off the FiO2 Will see the patient on an as-needed basis I, the cosigning physician, performed a history & physical examination of the patient. Lungs sounds clear. Maintaining good O2 saturations in the 90s on 2 L per. I discussed the assessment and plan of care with my nurse practitioner, Saba Huggins. I attest to the above note as dictated by her.
--- NOTE | 2020-03-21 15:01 | XR ---
EXAMINATION TYPE: XR chest 1V portable DATE OF EXAM: 03/21/2020 COMPARISON: 03/18/2020 HISTORY: Short of breath TECHNIQUE: FINDINGS: Heart is top normal in size. Lungs are clear of consolidation. There is mild subsegmental a telectasis left lung base. There are no hilar masses. Bony thorax is intact. IMPRESSION: Subsegmental atelectasis. No heart failure seen. Inspiration improved compared to last ex am.
--- NOTE | 2020-03-21 15:32 | PN ---
PROGRESS NOTE DATE OF SERVICE: 03/21/2020 This 69-year-old woman was admitted with acute UTI with possible sepsis, also had change in mental status also. Recent cultures are pending at this time. The patient did have multiple organisms grown previously. Currently, the patient is on ertapenem empirically. Dr. Osman is following the patient closely. The most recent CT scan of the chest to rule out the possibility of a mass lesion also, atelectasis suspected. Past medical history reviewed. REVIEW OF SYSTEMS: CARDIOVASCULAR: No angina or palpitations. RESPIRATIONS as mentioned earlier. GI: As mentioned earlier. no dysuria. NERVOUS SYSTEM: No numbness or weakness. CURRENT MEDICATIONS: Reviewed and include: 1. Tylenol. 2. [place]. 3. DuoNeb. 4. Aspirin. 5. Lipitor. 6. Pulmicort. 7. Plavix. 8. Ertapenem. 9. Folic acid. 10.Neurontin. 11.Heparin. 12.Solu-Cortef. 13.Dilaudid. 14.NovoLog. 15.Levemir. 16.Zestril. 17.Magnesium oxide. 18.Reglan. 19.Toprol-XL. 20.Multivitamins. 21.Narcan. 22.Protonix. 23.Aldactone. 24.Vitamin B1. 25.Effexor XR. PHYSICAL EXAMINATION: Alert and oriented times three. Pulse 88, blood pressure is 171/84, respirations 16, temperature 99.4, pulse ox is 100% on room air. HEENT: Conjunctivae normal. NECK: No jugular venous distention. CARDIOVASCULAR: S1, S2 muffled. RESPIRATIONS: Breath sounds diminished in the bases. A few scattered rhonchi. No crackles. ABDOMEN: Soft. Nontender. LEGS are no edema. No swelling. NERVOUS SYSTEM: No focal deficits. LABS: WBC 5.2, hemoglobin 9.7. Glucose noted. ASSESSMENT: 1. Acute urinary tract infection with sepsis present on admission with some change in mental status with acute metabolic encephalopathy secondary to sepsis. 2. Diabetes mellitus type 2, uncontrolled with hyperglycemia. 3. Lingular opacity, possible atelectasis. 4. Adrenocortical insufficiency. 5. Severe intractable headache and migraine cephalalgia. 6. History of gait dysfunction. 7. Old right internal capsule lacunar infarct history. 8. History of chronic obstructive pulmonary disease. 9. History of deep vein thrombosis. 10.Fibromyalgia. 11.Hypertension. 12.Hyperlipidemia. 13.History of pneumonia. 14.History of sleep apnea. 15.History of bronchitis. 16.History of hyperparathyroidism. 17.History of exophthalmos. 18.History of degenerative joint disease. 19.History of toe amputation. 20.History of cardiac murmur. 21.History of ESBL and as well as MRSA previously. 22.History of cholecystectomy. 23.FULL CODE. RECOMMENDATIONS AND DISCUSSION: Recommend to continue current medications, management and symptomatic treatment. Continue with empiric antibiotics. Continue bronchodilators. Continue the Pulmicort and I recommended chest x-ray STAT. Continue with hydrocortisone. Monitor blood sugars closely. The patient also started on Lantus 20 units subcu q.h.s. We will monitor the patient closely. Sugars are slightly improving, went up to 370 yesterday. Prognosis guarded because of multiple complex medical issues. Further recommendations to follow. MMODL / IJN: [id number] /
[2020-03-21 16:50] LABS: Glucose,Whole Blood 348 mg/dL (75-99)
[2020-03-21] MEDS: ERTAPENEM 1 GM in SODIUM CHLORIDE 0.9% 50 ML IVPB SCH (17:07)
[2020-03-21 20:37] LABS: Glucose,Whole Blood 351 mg/dL (75-99)
[2020-03-21] MEDS: GABAPENTIN 100 MG CAP PO PRN (20:44)
[2020-03-21] MEDS: METOPROLOL SUCCINATE (ER) 50 MG TAB.ER.24H PO SCH (20:44)
[2020-03-21] MEDS: VENLAFAXINE HCL ER 75 MG CAP PO SCH (20:45)
[2020-03-21] MEDS: ATORVASTATIN 80 MG TAB PO SCH (20:46)
[2020-03-21] MEDS: INSULIN DETEMIR (LEVEMIR) 100 UNIT/ML SYR SQ SCH (20:59)
--- NOTE | 2020-03-21 23:19 | PN ---
PROGRESS NOTE DATE OF SERVICE: 03/21/2020 REASON FOR FOLLOWUP: Recurrent infection with sepsis. INTERVAL HISTORY: Patient is currently afebrile. The patient is feeling better. Breathing comfortably. The patient denies having any chest pain. No shortness of breath or cough. No nausea. No vomiting. No abdominal pain or diarrhea. Urinary symptoms have improved. PHYSICAL EXAMINATION: Blood pressure 158/74 with a pulse of 71, temperature is 98. She is 99% on 3 L. General description: The patient is an elderly female lying in bed in no distress. Respiratory system: Unlabored breathing, clear to auscultation anteriorly. Heart S1, S2. Regular rate and rhythm. Abdomen soft, no tenderness. LABS: Hemoglobin 9.7, white count 5.2, BUN of 16, creatinine 0.7. Blood culture has been negative. Urine culture so far negative. DIAGNOSTIC IMPRESSION AND PLAN: Patient admitted to the hospital with sepsis, source is urinary tract infection in this patient with history of recurrent urinary tract infection. The patient's culture here has been negative. We will try to obtain cultures from the the patient initially presented to determine her discharge antibiotics. Continue supportive care. MMODL / IJN: [id number] /
[2020-03-22] MEDS: lisinopriL 20 MG TAB PO SCH (02:19)
[2020-03-22] MEDS: ACETAMINOPHEN TAB 325 MG TAB PO PRN (04:19)
[2020-03-22] MEDS: METOCLOPRAMIDE 5 MG/ML 2 ML VIAL IVP SCH ×3 (05:40→18:24)
[2020-03-22 06:11] LABS: Basophils % (A) 0 %; Eosinophils # (A) 0.1 k/uL (0-0.7); Eosinophils % (A) 1 %; HCT 32.3 % (34.0-46.0); HGB 10.4 gm/dL (11.4-16.0); Lymphocytes # (A) 0.7 k/uL (1.0-4.8); Lymphocytes % (A) 13 %; MCH 27.4 pg (25.0-35.0); MCHC 32.1 g/dL (31.0-37.0); MCV 85.1 fL (80.0-100.0); Mean Platelet Volume 7.8; Monocytes # (A) 0.4 k/uL (0-1.0); Monocytes % (A) 7 %; Neutrophils % (A) 77 %; Platelet Count 229 k/uL (150-450); RBC 3.79 m/uL (3.80-5.40); RDW 13.7 % (11.5-15.5); WBC 5.2 k/uL (3.8-10.6)
[2020-03-22 06:52] LABS: Glucose,Whole Blood 298 mg/dL (75-99)
[2020-03-22] MEDS: INSULIN ASPART (NovoLOG) 100 UNIT/ML VIAL SQ SCH ×4 (07:51→20:50)
[2020-03-22] MEDS: THIAMINE 100 MG TAB PO SCH (07:52)
[2020-03-22] MEDS: HEPARIN SODIUM,PORCINE 5,000 UNIT/ML 1 ML VIAL SQ SCH ×2 (07:52→20:48)
[2020-03-22] MEDS: PANTOPRAZOLE 40 MG/10 ML VIAL IVP SCH ×2 (07:52→20:48)
[2020-03-22] MEDS: HYDROCORTISONE SUCCINATE 100 MG/2 ML VIAL IV SCH ×2 (07:52→15:16)
[2020-03-22] MEDS: HYDROcodone/APAP 10-325MG 1 EACH TAB PO PRN ×3 (07:52→22:07)
[2020-03-22] MEDS: MULTIVITAMINS, THERA 1 EACH TAB PO SCH (07:52)
[2020-03-22] MEDS: MAGNESIUM OXIDE 400 MG TAB PO SCH ×2 (07:53→20:48)
[2020-03-22] MEDS: FOLIC ACID 1 MG TAB PO SCH (07:53)
[2020-03-22] MEDS: SPIRONOLACTONE 25 MG TAB PO SCH (07:53)
[2020-03-22] MEDS: ASPIRIN 81 MG PO SCH (07:53)
[2020-03-22] MEDS: CLOPIDOGREL 75 MG TAB PO SCH (07:53)
[2020-03-22] MEDS: GABAPENTIN 100 MG CAP PO PRN (07:53)
[2020-03-22] MEDS: BUDESONIDE 1 MG/2 ML NEBU INHALATION SCH ×2 (09:09→20:03)
[2020-03-22] MEDS: IPRATROPIUM-ALBUTEROL 3 ML NEB INHALATION SCH ×4 (09:09→20:03)
[2020-03-22] MEDS: SODIUM CHLORIDE 0.9% 1,000 ML IV SCH (10:20)
[2020-03-22] MEDS: BUTALB/APAP/CAFF 50-325-40MG TAB PO PRN ×2 (11:32→18:13)
[2020-03-22 11:34] LABS: Albumin 3.6 g/dL (3.80-4.90); Albumin/Globulin Ratio 2.25 (1.60-3.17); BUN/Creat Ratio 26.67 Ratio (12.00-20.00); Calcium 8.3 mg/dL (8.7-10.3); Globulin 1.6 g/dL (1.6-3.3); Non-African American GFR(CKD) 92.4 (60.0-200.0); Total Bilirubin 0.3 mg/dL (0.2-1.2); Total Protein 5.2 g/dL (6.2-8.2)
[2020-03-22 11:40] LABS: Glucose,Whole Blood 271 mg/dL (75-99)
[2020-03-22 12:00] LABS: Potassium 3.2 mmol/L (3.5-5.5)
[2020-03-22] MEDS ORDERED: Potassium Replacement Protocol 1 EACH MISC MISCELLANE PRN (12:01)
[2020-03-22] MEDS ORDERED: Magnesium Replacement Protocol 1 EACH MISC MISCELLANE PRN (12:01)
[2020-03-22] MEDS: ERTAPENEM 1 GM in SODIUM CHLORIDE 0.9% 50 ML IVPB SCH (15:15)
[2020-03-22] MEDS: GABAPENTIN 100 MG CAP PO SCH ×2 (15:16→20:48)
[2020-03-22 16:45] LABS: Glucose,Whole Blood 282 mg/dL (75-99)
[2020-03-22 20:23] LABS: Glucose,Whole Blood 476 mg/dL (75-99)
[2020-03-22] MEDS: ATORVASTATIN 80 MG TAB PO SCH (20:47)
[2020-03-22] MEDS: VENLAFAXINE HCL ER 75 MG CAP PO SCH (20:48)
[2020-03-22] MEDS: METOPROLOL SUCCINATE (ER) 50 MG TAB.ER.24H PO SCH (20:48)
[2020-03-22] MEDS: INSULIN DETEMIR (LEVEMIR) 100 UNIT/ML SYR SQ SCH (20:49)
[2020-03-22] MEDS ORDERED: INSULIN ASPART (NovoLOG) 100 UNIT/ML VIAL SQ ONE (21:09)
--- NOTE | 2020-03-23 00:56 | PN ---
PROGRESS NOTE DATE OF SERVICE: 03/22/2020 This 69-year-old woman who was admitted with acute UTI with sepsis also had acute metabolic encephalopathy. The most recent urine cultures are negative, but previously the patient had multiple organisms grown. The patient's sensorium is slightly improved. Still has some shortness of breath. No chest pain. No palpitations. No fever. PHYSICAL EXAMINATION: On exam, alert and oriented x3. Pulse 66, blood pressure 166/83, respiration 19, temperature 98.4, pulse ox 97% on 2 L. HEENT: Conjunctivae normal. NECK: No jugular venous distention. CARDIOVASCULAR: S1, S2 muffled. RESPIRATORY: Breath sounds diminished at the bases. Scattered rhonchi and crackles. ABDOMEN: Soft, nontender. LEGS: No edema, no swelling. NERVOUS SYSTEM: No focal deficits. LABS: WBC 5.2, hemoglobin 10.4. Potassium 3.2. Accu-Cheks are 271, 282. ASSESSMENT: 1. Acute urinary tract infection with sepsis, present on admission with some change in mental status acute metabolic encephalopathy secondary to sepsis. 2. Diabetes mellitus type 2, uncontrolled with hyperglycemia. 3. Lingular opacity, possible atelectasis. 4. Adrenocortical insufficiency. 5. Severe intractable headache and migraine cephalalgia. 6. History of gait dysfunction. 7. Old right internal capsule lacunar stroke history. 8. History of chronic obstructive pulmonary disease. 9. History of deep venous thrombosis. 10.Fibromyalgia. 11.Hypertension. 12.Hyperlipidemia. 13.History of pneumonia. 14.History of sleep apnea. 15.History of bronchitis. 16.History hyperparathyroidism. 17.History of exophthalmos. 18.History of degenerative joint disease. 19.History of toe amputation. 20.History of cardiac murmur. 21.History of ESBL as well as MRSA previously. 22.History of cholecystectomy. 23.FULL CODE. RECOMMENDATIONS AND DISCUSSION: Recommend to continue current medications, continue symptomatic treatment. Otherwise, at this time I will supplement potassium. Otherwise I would also recommend increase Lantus to 30 units, potassium replacement protocol and continue the rest of the medications including bronchodilators and pain management. Otherwise, Dr. Gonsales will follow tomorrow. MMODL / IJN: [id number] /
[2020-03-23] MEDS: HYDROCORTISONE SUCCINATE 100 MG/2 ML VIAL IV SCH ×3 (00:57→16:13)
[2020-03-23] MEDS: METOCLOPRAMIDE 5 MG/ML 2 ML VIAL IVP SCH ×4 (00:57→17:16)
[2020-03-23] MEDS: ACETAMINOPHEN TAB 325 MG TAB PO PRN (01:03)
[2020-03-23] MEDS: BUTALB/APAP/CAFF 50-325-40MG TAB PO PRN ×2 (03:05→08:14)
[2020-03-23] MEDS: POTASSIUM CHLORIDE ER 20 MEQ TAB.ER PO SCH ×4 (04:39→22:19)
[2020-03-23] MEDS: HYDROcodone/APAP 10-325MG 1 EACH TAB PO PRN ×3 (05:44→22:21)
--- NOTE | 2020-03-23 06:32 | PN ---
PROGRESS NOTE DATE OF SERVICE: 03/22/2020 REASON FOR FOLLOWUP: Urinary tract infection. INTERVAL HISTORY: The patient is currently afebrile. The patient is breathing comfortably. Patient denies having any chest pain. No shortness of breath or cough. No nausea, no vomiting. No abdominal pain and diarrhea has improved. PHYSICAL EXAMINATION: Blood pressure 169/83 with a pulse of 63, temperature 98.4. She is 97% on 3 L nasal cannula. General description is an elderly female lying in bed in no distress. RESPIRATORY SYSTEM: Unlabored breathing, clear to auscultation anteriorly. HEART: S1, S2. Regular rate and rhythm. ABDOMEN: Soft, no tenderness. LABS: Hemoglobin is 10.4, white count 5.2, BUN of 16, creatinine 0.6. Blood and urine cultures on this admission has been negative. DIAGNOSTIC IMPRESSION AND PLAN: Patient admitted to the hospital with sepsis and concern for urinary tract infection in this patient who did have a history of recurrent urinary tract infection, previously infected with ESBL. The patient did have multiple antibiotic allergies, currently covered with Invanz. Culture has been negative. We will try to obtain cultures from [facility]. The patient initially presented to determine definite antibiotic on discharge. This was discussed with the patient's nurse to get the culture report. Continue with supportive care. MMODL / IJN: [id number] /
[2020-03-23 07:11] LABS: Glucose,Whole Blood 91 mg/dL (75-99)
[2020-03-23] MEDS: INSULIN ASPART (NovoLOG) 100 UNIT/ML VIAL SQ SCH ×4 (07:13→22:19)
[2020-03-23] MEDS: lisinopriL 20 MG TAB PO SCH (07:55)
[2020-03-23] MEDS: IPRATROPIUM-ALBUTEROL 3 ML NEB INHALATION SCH ×4 (07:55→21:16)
[2020-03-23] MEDS: BUDESONIDE 1 MG/2 ML NEBU INHALATION SCH ×2 (07:55→21:16)
[2020-03-23] MEDS: CLOPIDOGREL 75 MG TAB PO SCH (07:56)
[2020-03-23] MEDS: MULTIVITAMINS, THERA 1 EACH TAB PO SCH (07:56)
[2020-03-23] MEDS: ASPIRIN 81 MG PO SCH (07:56)
[2020-03-23] MEDS: MAGNESIUM OXIDE 400 MG TAB PO SCH ×2 (07:56→22:20)
[2020-03-23] MEDS: PANTOPRAZOLE 40 MG/10 ML VIAL IVP SCH (07:56)
[2020-03-23] MEDS: HEPARIN SODIUM,PORCINE 5,000 UNIT/ML 1 ML VIAL SQ SCH ×2 (07:56→22:19)
[2020-03-23] MEDS: SPIRONOLACTONE 25 MG TAB PO SCH (08:14)
[2020-03-23] MEDS: GABAPENTIN 100 MG CAP PO SCH ×3 (08:14→22:20)
[2020-03-23] MEDS ORDERED: HYDROmorphone 0.5 MG/0.5 ML SYRINGE IVP PRN (08:30)
[2020-03-23 11:40] LABS: Glucose,Whole Blood 246 mg/dL (75-99)
--- NOTE | 2020-03-23 12:27 | P.PN ---
Subjective Progress Note Date: 03/23/20 Was Perfect Served by patient's nurse yesterday because of the patient headache. They were asking about restarting Fioricet. Because of the patient the TIA in the past I notified them that the medication is a vasoconstrictor and that would not recommended. Instead I recommended that switching gabapentin from a when necessary 2 scheduled as well as a given the magnesium oxide a one-time dose only. I saw the patient at bedside and she stated that her headache over the last 2-3 days was a throbbing headache and was over the right hemisphere mostly temporal side she said that the 2 days ago she rated at 10 the and the headache lasted for 1 hour. She denies any photophobia, phonophobia, nausea or vomiting. She denied that that she had to be in a dark quiet place over this headache. She felt the headache was waxing and waning. This was typical for her migraine. Currently she feels her headache is a somewhat better and it's as 7/10. Patient denies any weakness is so she with this any numbness any dysarthria associate with this. Otherwise she is feeling well. Objective - Vital Signs Vital signs: Vital Signs Temp 98.2 F 03/23/20 07:00 Pulse 68 03/23/20 11:10 Resp 17 03/23/20 08:00 BP 150/78 03/23/20 07:00 Pulse Ox 96 03/23/20 07:00 Intake & Output 03/22/20 03/23/20 03/23/20 18:59 06:59 18:59 Intake Total 580 Output Total 300 Balance 580 -300 Weight 61.235 kg Intake: Oral 580 Output: Urine 300 Other: Voiding Method Bedpan Diaper Diaper # Voids 3 # Bowel Movements 1 - Exam GENERAL: The patient is lying in bed and is not in acute distress. CHEST: The heart rate is regular rate rhythm. No murmurs to auscultation. LUNG: Not labored breathing. ABDOMEN/GI: Bowel sounds present in all 4 quadrants. No tenderness to palpation throughout. NEUROLOGICAL: Higher mental function: The patient is awake, alert, oriented to self, place and time. Patient is following commands. No aphasia and no neglect. Cranial nerves: The pupils are round, equal and reactive to light and accommoda tion. Visual hinds are full to confrontation throughout. Extraocular movement is intact no nystagmus is noted. Facial sensation is normal to touch throughout. The facial strength is normal throughout. Hearing is normal bilaterally to hand rub. Tongue is midline and moved [id number] without any difficulty. No dysarthria is noted. Shoulder shrug is normal bilaterally. Motor: Gait is defered. The strength is 5 over 5 throughout. Normal tone and bulk. Cerebellum: Normal finger to nose bilaterally. Sensation: Sensation is normal to touch throughout. Reflexes (right/left): 2+ throughout. Plantars are downgoing bilaterally. - Labs CBC & Chem 7: 03/22/20 05:46 03/22/20 05:46 Labs: Abnormal Lab Results - Last 24 Hours (Table) 03/22/20 03/22/20 03/23/20 Range/Units 16:44 20:21 11:39 POC Glucose (mg/dL) 282 H 476 H 246 H (75-99) mg/dL Microbiology - Last 24 Hours (Table) 03/18/20 16:47 Blood Culture - Preliminary Blood No Growth after 96 hours 03/18/20 16:35 Blood Culture - Preliminary Blood No Growth after 96 hours Assessment and Plan Assessment: Medical intractable migraine Dysarthria are likely due to urinary tract infection (patient denies any episode of dysarthria this time around)---resolved Acute urinary tract infection History of right basal infarct History of bilateral vertebral stenosis History of recurrent urinary tract infection Diabetes mellitus Hyperlipidemia hypertension Plan: The patient's headache patient is on Fioricet was restarted by the primary team 1 tablet 4 times a day as needed. Continue schedule gabapentin 100 mg 3 times a day. On Reglan 5 mg 3 times a day as needed. On Zofran 4 mg every 6 hours as needed. I notified the patient that that would like to start her on Topamax 25 mg twice a day for headache prophylaxis. She stated that that she sees Dr. Barry her neurologist and that she had multiple medication the past she doesn't recall and that she will follow up with him within the next 1-2 weeks and we'll see what medication no start her on. She said that that in the past the she remembers she was on Aimovig but that did not help. Per patient one of the consideration that Dr. Alba was thinking was Botox. Continue aspirin 81 mg and Plavix 75 mg especially the patient has bilateral vertebral artery stenosis. Continue Lipitor 80 mg daily. There is no need to repeat the MRI the brain since her last MRI the brain was on 01/28/2020 and ruled out a stroke. Also there is no need to repeat any of the s troke workup since she had the stroke workup the on 01/28/2020. We will defer the management of UTI to the ID team There is no further neurological workup needed. Patient needs to follow-up with the Dr. Barry as an outpatient regarding her management of the her intractable migraine as well as her TIAs. Jason Mccord M.D. Neuro-hospitalist Time with Patient: Less than 30
[2020-03-23] MEDS: FOLIC ACID 1 MG TAB PO SCH (12:59)
[2020-03-23] MEDS: THIAMINE 100 MG TAB PO SCH (12:59)
[2020-03-23] MEDS: ERTAPENEM 1 GM in SODIUM CHLORIDE 0.9% 50 ML IVPB SCH (16:12)
--- NOTE | 2020-03-23 16:21 | PN ---
PROGRESS NOTE DATE OF SERVICE: 03/23/2020 REASON FOR FOLLOWUP: Recurrent ESBL E coli urinary tract infection. INTERVAL HISTORY: The patient is currently afebrile. The patient is breathing comfortably. Denies having any chest pain or shortness of breath or cough. Abdominal pain has improved. Diarrhea has improved as well as urinary symptoms. PHYSICAL EXAMINATION: Blood pressure 150/78 with a pulse of 60, temperature 98.2. She is 96% on 3 L nasal cannula. General description is an elderly female lying in bed in no distress. RESPIRATORY SYSTEM: Unlabored breathing. Clear to auscultation anteriorly. HEART: S1, S2. Regular rate and rhythm. ABDOMEN: Soft. No tenderness. LABS: No new labs have been obtained today. We were able to obtain cultures from [facility] that did grow ESBL E coli. DIAGNOSTIC IMPRESSION AND PLAN: Patient with recurrent ESBL Escherichia coli urinary tract infection. Culture done here has been negative. Blood culture negative. She will get a midline and advised 10 more days of IV Invanz 1 gram daily to finish a 2-week course of therapy and close outpatient followup. Possible followup with Urology for incomplete emptying of the bladder that was identified as a possible source of this recurrent infection, so that can be taken care off and prevent recurrent infection. MMODL / IJN: [id number] /
[2020-03-23 16:40] LABS: Glucose,Whole Blood 360 mg/dL (75-99)
[2020-03-23] MEDS: PANTOPRAZOLE 40 MG TABLET PO SCH (17:16)
[2020-03-23 17:19] LABS: Magnesium 1.5 mg/dL (1.5-2.4); Potassium 3.4 mmol/L (3.5-5.5)
[2020-03-23] MEDS: MAGNESIUM SULFATE-D5W PMX 1 GM in DEXTROSE/WATER 1 100ML.BAG IVPB SCH ×2 (18:03→22:19)
[2020-03-23 21:35] LABS: Glucose,Whole Blood 392 mg/dL (75-99)
--- NOTE | 2020-03-23 22:02 | P.PN ---
Subjective Progress Note Date: 03/23/20 She is feeling improved today, no longer as weak although she still complains of R sided abdominal pain. ID following and recommending 10 day course of invanz. Objective - Vital Signs Vital signs: Vital Signs Temp 97.8 F 03/23/20 14:47 Pulse 63 03/23/20 16:00 Resp 17 03/23/20 16:00 BP 127/65 03/23/20 14:47 Pulse Ox 96 03/23/20 14:47 Intake & Output 03/23/20 03/23/20 03/24/20 06:59 18:59 06:59 Intake Total 250 Output Total 300 350 Balance -300 -100 Intake: Oral 250 Output: Urine 300 350 Other: Voiding Method Diaper Diaper # Bowel Movements 1 1 1 - Exam General: well nourished, well developed, NAD. Vitals reviewed Lungs: normal respiratory effort, no wheezes or rales CV: Regular rate and rhythm, no murmur. Peripheral pulses 2+ Abdomen: soft, nondistended, no organomegaly. R sided abdominal pain Skin: warm and dry. - Labs CBC & Chem 7: 03/22/20 05:46 03/23/20 08:16 Labs: Abnormal Lab Results - Last 24 Hours (Table) 03/23/20 03/23/20 03/23/20 Range/Units 08:16 11:39 16:39 Potassium 3.4 L (3.5-5.5) mmol/L POC Glucose (mg/dL) 246 H 360 H (75-99) mg/dL 03/23/20 Range/Units 21:33 Potassium (3.5-5.5) mmol/L POC Glucose (mg/dL) 392 H (75-99) mg/dL Microbiology - Last 24 Hours (Table) 03/18/20 16:47 Blood Culture - Preliminary Blood No Growth after 120 hours 03/18/20 16:35 Blood Culture - Preliminary Blood No Growth after 120 hours Assessment and Plan (1) Sepsis due to gram-negative UTI Current Visit: Yes Status: Acute Code(s): A41.50 - GRAM-NEGATIVE SEPSIS, UNSPECIFIED; N39.0 - URINARY TRACT INFECTION, SITE NOT SPECIFIED SNOMED C ode(s): 147446082 (2) Migraine Current Visit: Yes Status: Acute Code(s): G43.909 - MIGRAINE, UNSP, NOT INTRACTABLE, WITHOUT STATUS MIGRAINOSUS SNOMED Code(s): 64456298 (3) Adrenal insufficiency Current Visit: No Status: Chronic Code(s): E27.40 - UNSPECIFIED ADRENOCOR TICAL INSUFFICIENCY SNOMED Code(s): 938665059 (4) DM type 2 (diabetes mellitus, type 2) Current Visit: No Status: Chronic Code(s): E11.9 - TYPE 2 DIABETES MELLITUS WITHOUT COMPLICATIONS SNOMED Code(s): 14867254 Plan: Continue with current medication and treatments, insert midline today and plan for pt to complete outpatient course of invanz. Decrease dilaudid today, continue home norco and migraine medication
[2020-03-23] MEDS: SODIUM CHLORIDE 0.9% 1,000 ML IV SCH (22:18)
[2020-03-23] MEDS: ATORVASTATIN 80 MG TAB PO SCH (22:19)
[2020-03-23] MEDS: VENLAFAXINE HCL ER 75 MG CAP PO SCH (22:20)
[2020-03-23] MEDS: INSULIN DETEMIR (LEVEMIR) 100 UNIT/ML SYR SQ SCH (22:20)
[2020-03-23] MEDS: METOPROLOL SUCCINATE (ER) 50 MG TAB.ER.24H PO SCH (22:20)
[2020-03-24] MEDS: BUTALB/APAP/CAFF 50-325-40MG TAB PO PRN ×2 (00:36→08:12)
[2020-03-24] MEDS: HYDROCORTISONE SUCCINATE 100 MG/2 ML VIAL IV SCH ×2 (00:36→08:09)
[2020-03-24] MEDS: METOCLOPRAMIDE 5 MG/ML 2 ML VIAL IVP SCH ×3 (00:37→12:12)
[2020-03-24] MEDS: HYDROcodone/APAP 10-325MG 1 EACH TAB PO PRN ×2 (04:28→12:13)
[2020-03-24 07:15] LABS: Glucose,Whole Blood 179 mg/dL (75-99)
[2020-03-24] MEDS: lisinopriL 20 MG TAB PO SCH (08:09)
[2020-03-24] MEDS: MAGNESIUM OXIDE 400 MG TAB PO SCH (08:09)
[2020-03-24] MEDS: PANTOPRAZOLE 40 MG TABLET PO SCH (08:09)
[2020-03-24] MEDS: SPIRONOLACTONE 25 MG TAB PO SCH (08:10)
[2020-03-24] MEDS: INSULIN ASPART (NovoLOG) 100 UNIT/ML VIAL SQ SCH ×2 (08:10→12:13)
[2020-03-24] MEDS: GABAPENTIN 100 MG CAP PO SCH (08:10)
[2020-03-24] MEDS: ASPIRIN 81 MG PO SCH (08:10)
[2020-03-24] MEDS: CLOPIDOGREL 75 MG TAB PO SCH (08:11)
[2020-03-24] MEDS: HEPARIN SODIUM,PORCINE 5,000 UNIT/ML 1 ML VIAL SQ SCH (08:11)
[2020-03-24] MEDS: IPRATROPIUM-ALBUTEROL 3 ML NEB INHALATION SCH ×2 (08:16→11:17)
[2020-03-24] MEDS: BUDESONIDE 1 MG/2 ML NEBU INHALATION SCH (08:17)
--- NOTE | 2020-03-24 10:26 | P.DS ---
Providers Date of admission: 03/19/20 10:04 Expected date of discharge: 03/24/20 Attending physician: Andrew Gonsales MD Consults: 03/16/20 19:48 Consult Physician Urgent Consulting Provider: Jason Mccord Consult Reason/Comments: Dysarthria episode Do you want consulting provider notified?: Yes 03/16/20 19:49 Consult Physician Routine Consulting Provider: Chalino Osman Consult Reason/Comments: sepsis Do you want consulting provider notified?: Yes 03/18/20 10:01 Consult Physician Routine Consulting Provider: Thomas Coffman Consult Reason/Comments: Sepsis,Recurrent UTIs,multiple nonobstructing renal stones Do you want consulting provider notified?: Yes 03/18/20 10:12 Consult Physician Routine Consulting Provider: Familia Mccord Consult Reason/Comments: Septic, hypoxic, lingula density Do you want consulting provider notified?: Yes Primary care physician: Andrew Gonsales MD Hospital Course: Final Diagnoses: (1) Sepsis due acute recurrent ESBL UTI Current Visit: Yes Status: Acute Code(s): A41.50 - GRAM-NEGATIVE SEPSIS, UNSPECIFIED; N39.0 - URINARY TRACT INFECTION, SITE NOT SPECIFIED SNOMED Code(s): 074212318 (2) Migraine Current Visit: Yes Status: Acute Code(s): G43.909 - MIGRAINE, UNSP, NOT INTRACTABLE, WITHOUT STATUS MIGRAINOSUS SNOMED Code(s): 71458423 (3) Adrenal insufficiency Current Visit: No Status: Chronic Code(s): E27.40 - UNSPECIFIED ADRENOCORTICAL INSUFFICIENCY SNOMED Code(s): 180250761 (4) DM type 2 (diabetes mellitus, type 2) Current Visit: No Status: Chronic Code(s): E11.9 - TYPE 2 DIABETES MELLITUS WITHOUT COMPLICATIONS SNOMED Code(s): 77605765 (5) acute hypoxic respiratory failure secondary to #1 (6) compressive atelectasis posterior medial right lung base, small density in the lingula, possible underlying mass-not detected on CT. (7) nonobstructing left renal stones, with incomplete bladder emptying contributing to patient's having recurrent UTIs in a patient with history of nephrolithiasis (8) bilateral renal cysts (9) hypertension (10) hyperlipidemia (11) history of bilateral vertebral stenosis, on aspirin,Plavix and statin (12) fibromyalgia (13) diabetic neuropathy (14) hyperparathyroidism (15) vertigo (16) ascending aorta 3.[address] Hospital course a pleasant 69-year-old female admitted with sepsis secondary to acute recurrent UTI with ESBL reported from [facility] reports. Midline placed. Patient to complete 10 days more IV Invanz to finish a two-week course as recommended per ID. Significant clinical improvement. Evaluated and cleared by ID, urology, pulmonary, neurology. Patient will be discharged home today in a stable condition with guarded prognosis. The impression and plan of care has been dictated as directed. : I performed a history and examination of this patient, discussed the same with the dictator. I agree with the dictator's note ,documented as a scribe. Any additional findings or plans will be noted. Patient Condition at Discharge: Stable Plan - Discharge Summary Discharge Rx Participant: No New Discharge Prescriptions: New Gabapentin [Neurontin] 100 mg PO TID #9 cap Ertapenem [INVanz] 1 gm IVPB DAILY@1600 #10 vial Continue Cholecalciferol [Vitamin D3 (25 Mcg = 1000 Iu)] 3,000 unit PO DAILY@0700 Metoprolol Succinate (ER) [Toprol XL] 50 mg PO HS Meclizine [Antivert] 25 mg PO QID PRN PRN Reason: Vertigo Hydrocortisone [Cortef] 15 mg PO AC-BRKFST Hydrocortisone [Cortef] 5 mg PO HS Aspirin 81 mg PO DAILY #0 Glucagon Emergency Kit 1 mg IM ONCE PRN PRN Reason: Hypoglycemia Ferrous Sulfate [Iron (65 MG Elemental)] 325 mg PO DAILY Vitamin B-Complex Drops 1 ml PO BID Thiamine [Vitamin B-1] 100 mg PO DAILY Folic Acid 0.4 mg PO DAILY Multivitamins, Thera Liquid [Theragran Liquid (formulary)] 30 ml PO DAILY L.acidoph,Paracasei, B.lactis [Probiotic] 2 cap PO BID Melatonin 5 mg PO HS PRN PRN Reason: Insomnia Cranberry 300mg 300 mg PO BID Potassium 99 mg PO DAILY Atorvastatin [Lipitor] 40 mg PO HS #30 tab Pantoprazole [Protonix] 40 mg PO BID Hydrocortisone [Cortef] 10 mg PO AC-LUNCH Venlafaxine HCl [Effexor XR] 75 mg PO DAILY Magnesium Oxide [Mag-Ox] 400 mg PO DAILY Promethazine 6.25MG/5Ml [Phenergan Syrup] 6.25 mg PO Q6H PRN PRN Reason: Cough Ondansetron HCl [Zofran] 4 mg PO Q6H PRN PRN Reason: Nausea And Vomiting Acetaminophen Tab [Tylenol] 1,000 mg PO Q6HR PRN PRN Reason: Migraine Headache Clopidogrel [Plavix] 75 mg PO DAILY Spironolactone [Aldactone] 50 mg PO DAILY Estrogens, Conjugated Cream [Premarin Cream] 1 applicator VAGINAL WESA Cholestyramine (with Sugar) [Questran Packet] 4 gm PO TID BETWEEN MEALS #30 packet Metoclopramide [Reglan] 5 mg PO TID PRN #30 tab PRN Reason: Nausea lisinopriL [Zestril] 40 mg PO W/BRKFST #60 tab INSULIN ASPART (NovoLOG) [NovoLOG (formulary)] 14 unit SQ AC-BRKFST vial INSULIN ASPART (NovoLOG) [NovoLOG (formulary)] 24 unit SQ AC-SUPPER vial INSULIN ASPART (NovoLOG) [NovoLOG (formulary)] 18 unit SQ AC-LUNCH vial HYDROcodone/APAP 10-325MG [Redding 10-325] 1 tab PO Q6H PRN #12 tab PRN Reason: Pain Butalb/APAP/Caff 50-325-40Mg [Fioricet 50-325-40] 1 tab PO QID PRN #12 tab PRN Reason: Migraine Headache Changed Insulin Detemir (Levemir) [Levemir] 30 unit SQ HS@2200 #0 syr Discharge Medication List Cholecalciferol [Vitamin D3 (25 Mcg = 1000 Iu)] 3,000 unit PO DAILY@0700 12/01/14 [History] Metoprolol Succinate (ER) [Toprol XL] 50 mg PO HS 07/06/17 [History] Meclizine [Antivert] 25 mg PO QID PRN 11/26/17 [History] Hydrocortisone [Cortef] 15 mg PO AC-BRKFST 05/18/18 [History] Hydrocortisone [Cortef] 5 mg PO HS 06/26/18 [History] Aspirin 81 mg PO DAILY #0 07/02/18 [Rx] Glucagon Emergency Kit 1 mg IM ONCE PRN 08/12/18 [History] Cranberry 300mg 300 mg PO BID 10/08/18 [History] Ferrous Sulfate [Iron (65 MG Elemental)] 325 mg PO DAILY 10/08/18 [History] Folic Acid 0.4 mg PO DAILY 10/08/18 [History] L.acidoph,Paracasei, B.lactis [Probiotic] 2 cap PO BID 10/08/18 [History] Melatonin 5 mg PO HS PRN 10/08/18 [History] Multivitamins, Thera Liquid [Theragran Liquid (formulary)] 30 ml PO DAILY 10/08/18 [History] Potassium 99 mg PO DAILY 10/08/18 [History] Thiamine [Vitamin B-1] 100 mg PO DAILY 10/08/18 [History] Vitamin B-Complex Drops 1 ml PO BID 10/08/18 [History] Atorvastatin [Lipitor] 40 mg PO HS #30 tab 11/16/18 [Rx] Pantoprazole [Protonix] 40 mg PO BID 01/29/19 [History] Hydrocortisone [Cortef] 10 mg PO AC-LUNCH 08/30/19 [History] Venlafaxine HCl [Effexor XR] 75 mg PO DAILY 11/08/19 [History] Acetaminophen Tab [Tylenol] 1,000 mg PO Q6HR PRN 12/06/19 [History] Clopidogrel [Plavix] 75 mg PO DAILY 12/06/19 [History] Magnesium Oxide [Mag-Ox] 400 mg PO DAILY 12/06/19 [History] Ondansetron HCl [Zofran] 4 mg PO Q6H PRN 12/06/19 [History] Promethazine 6.25MG/5Ml [Phenergan Syrup] 6.25 mg PO Q6H PRN 12/06/19 [History] Spironolactone [Aldactone] 50 mg PO DAILY 12/30/19 [History] Estrogens, Conjugated Cream [Premarin Cream] 1 applicator VAGINAL WESA 02/16/20 [History] Cholestyramine (with Sugar) [Questran Packet] 4 gm PO TID BETWEEN MEALS #30 packet 02/19/20 [Rx] Metoclopramide [Reglan] 5 mg PO TID PRN #30 tab 02/19/20 [Rx] lisinopriL [Zestril] 40 mg PO W/BRKFST #60 tab 09/02/20 [Rx] HYDROcodone/APAP 10-325MG [Redding 10-325] 1 tab PO Q6H PRN #12 tab 02/25/20 [Rx] INSULIN ASPART (NovoLOG) [NovoLOG (formulary)] 14 unit SQ AC-BRKFST vial 02/25/20 [Rx] INSULIN ASPART (NovoLOG) [NovoLOG (formulary)] 18 unit SQ AC-LUNCH vial 02/25/20 [Rx] INSULIN ASPART (NovoLOG) [NovoLOG (formulary)] 24 unit SQ AC-SUPPER vial 02/25/20 [Rx] Butalb/APAP/Caff 50-325-40Mg [Fioricet 50-325-40] 1 tab PO QID PRN #12 tab 02/26/20 [Rx] Ertapenem [INVanz] 1 gm IVPB DAILY@1600 #10 vial 03/24/20 [Rx] Gabapentin [Neurontin] 100 mg PO TID #9 cap 03/24/20 [Rx] Insulin Detemir (Levemir) [Levemir] 30 unit SQ HS@2200 #0 syr 03/24/20 [Rx] Follow up Appointment(s)/Referral(s): Andrew Gonsales MD [Primary Care Provider] - 3 Days [facility], [NON-STAFF] - [facility],Infusion [NON-STAFF] - () Tyler Hitchcock MD [STAFF PHYSICIAN] - 10 Days China Barry MD [REFERRING] - 2 Weeks Ambulatory/Diagnostic Orders: Complete Blood Count w/diff [LAB.AMB] Time Frame: 3 Days, Location: None Selected Activity/Diet/Wound Care/Special Instructions: potassium and magnesium levels pending .[facility] will deliver IV antibiotics and supplies on the evening of 03/24/2020. [facility] will start visits on to initiate IV antibiotics at home.
--- NOTE | 2020-03-24 10:40 | P.PN ---
Subjective Progress Note Date: 03/24/20 patient was seen at bedside and she said that that she's doing much better today compared to yesterday. She said her headaches are dramatically improved today compared to yesterday. She denies of any nausea, vomiting, photophobia, phonophobia she denies of any weakness, numbness or visual disturbance. Objective - Vital Signs Vital signs: Vital Signs Temp 98.2 F 03/24/20 07:00 Pulse 60 03/24/20 08:27 Resp 18 03/24/20 07:00 BP 164/86 03/24/20 07:00 Pulse Ox 99 03/24/20 07:00 Intake & Output 03/23/20 03/24/20 03/24/20 18:59 06:59 18:59 Intake Total 250 Output Total 350 450 Balance -100 -450 Intake: Oral 250 Output: Urine 350 450 Other: Voiding Method Diaper Diaper # Voids 2 # Bowel Movements 1 2 - Exam GENERAL: The patient is lying in bed and is not in acute distress. CHEST: The heart rate is regular rate rhythm. No murmurs to auscultation. LUNG: Not labored breathing. ABDOMEN/GI: Bowel sounds present in all 4 quadrants. No tenderness to palpation throughout. NEUROLOGICAL: Higher mental function: The patient is awake, alert, oriented to self, place and time. Patient is following commands. No aphasia and no neglect. Cranial nerves: The pupils are round, equal (3mm) and reactive to light. Visual hinds are full to confrontation throughout. Proptosis of bilateral eyes. Extraocular movement: there seem to be restriction of movement of movement of both eyes fully horizontally (chronic) and no nystagmus is noted. Facial sensation is normal to touch throughout. The facial strength is normal throughout. Hearing is normal bilaterally to hand rub. Tongue is midline and moved [id number] without any difficulty. No dysarthria is noted. Shoulder shrug is normal bilaterally. Motor: Gait is defered. The strength is 5 over 5 throughout. Normal tone and bulk. Cerebellum: Normal finger to nose bilaterally. Sensation: Sensation is normal to touch throughout. Reflexes (right/left): 2+ throughout. Plantars are downgoing bilaterally. - Labs CBC & Chem 7: 03/22/20 05:46 03/23/20 08:16 Labs: Abnormal Lab Results - Last 24 Hours (Table) 03/23/20 03/23/20 03/23/20 Range/Units 08:16 11:39 16:39 Potassium 3.4 L (3.5-5.5) mmol/L POC Glucose (mg/dL) 246 H 360 H (75-99) mg/dL 03/23/20 03/24/20 Range/Units 21:33 07:13 Potassium (3.5-5.5) mmol/L POC Glucose (mg/dL) 392 H 179 H (75-99) mg/dL Microbiology - Last 24 Hours (Table) 03/18/20 16:47 Blood Culture - Preliminary Blood No Growth after 120 hours 03/18/20 16:35 Blood Culture - Preliminary Blood No Growth after 120 hours Assessment and Plan Assessment: Medical intractable migraine---improved Dysarthria are likely due to urinary tract infection (patient denies any episode of dysarthria this time around)---resolved Acute urinary tract infection History of right basal infarct History of bilateral vertebral stenosis History of recurrent urinary tract infection Diabetes mellitus Hyperlipidemia hypertension Plan: The patient's headache patient is on Fioricet was restarted by the primary team 1 tablet 4 times a day as needed. Continue schedule gabapentin 100 mg 3 times a day. On Reglan 5 mg 3 times a day as needed. On Zofran 4 mg every 6 hours as needed. I notified the patient that that would like to start her on Topamax 25 mg twice a day for headache prophylaxis. She stated that that she sees Dr. aBrry her neurologist and that she had multiple medication the past she doesn't recall and that she will follow up with him within the next 1-2 weeks and we'll see what medication no start her on. She said that that in the past the she remembers she was on Aimovig but that did not help. Per patient one of the consideration that Dr. Alba was thinking was Botox. Continue aspirin 81 mg and Plavix 75 mg especially the patient has bilateral vertebral artery stenosis. Continue Lipitor 80 mg daily. There is no need to repeat the MRI the brain since her last MRI the brain was on 01/28/2020 and ruled out a stroke. Also there is no need to repeat any of the stroke workup since she had the stroke workup the on 01/28/2020. TSH: 0.950 (06/26/19). Recommend repeating TSH if not done as an inpatient can be done as an outpatient and follow up with ophthalmology for her proptosis and some restriction of horizontal movements. We will defer the management of UTI to the ID team There is no further neurological workup needed. Patient needs to follow-up with the Dr. Barry as an outpatient regarding her management of the her intractable migraine as well as her TIAs. Jason Mccord M.D. Neuro-hospitalist Time with Patient: Less than 30
[2020-03-24 11:32] LABS: Glucose,Whole Blood 247 mg/dL (75-99)
[2020-03-24] MEDS: MULTIVITAMINS, THERA 1 EACH TAB PO SCH (12:12)
[2020-03-24] MEDS: THIAMINE 100 MG TAB PO SCH (12:12)
[2020-03-24] MEDS: FOLIC ACID 1 MG TAB PO SCH (12:12)
[2020-03-24] MEDS: ERTAPENEM 1 GM in SODIUM CHLORIDE 0.9% 50 ML IVPB SCH (12:23)
[2020-03-24 13:50] VITALS: BP 112/68; PULSE 66; RESP 17; TEMP 97.9
--- NOTE | 2020-03-24 15:28 | PN ---
PROGRESS NOTE DATE OF SERVICE: 02/23/2020 REASON FOR FOLLOWUP: Recurrent ESBL E coli urinary tract infection. INTERVAL HISTORY: Patient is currently afebrile, patient is breathing comfortably. Patient denies having any chest pain, or shortness of breath or cough. No nausea, no vomiting. No abdominal pain, no diarrhea. PHYSICAL EXAMINATION: Her blood pressure is 112/68 with a pulse of 66, temperature 97.9. She is 97% on room air. General description is an elderly female, lying in bed in no distress. RESPIRATORY SYSTEM: Unlabored breathing, clear to auscultation anteriorly. HEART: S1, S2. Regular rate and rhythm. ABDOMEN: Soft, no tenderness. LABS: No new labs have been obtained today. Blood culture has been negative so far. DIAGNOSTIC IMPRESSION AND PLAN: Patient with recurrent ESBL E coli urinary tract infection has been evaluated by Urology with concern for possible incomplete emptying of the bladder, possible risk factor where the patient received medication from. Urology as far as her recurrent ESBL E coli infection, she will be given Invanz 1 g daily for another 10 am days to finish a 2-week course of therapy and close outpatient followup. MMODL / IJN: [id number] /
[2020-03-24 21:25] LABS: Magnesium 2.2 mg/dL (1.5-2.4); Potassium 4.1 mmol/L (3.5-5.5)
--- NOTE | 2020-03-26 08:34 | CDI ---
Documentation Clarification Form Date: 03/26/2020 07:21:00 AM From: Salina Carvalho Phone: If you have a question about this query, please contact Lissy Chawla Medical Radiation Tech at [phone] between 8am and 5pm Admit Date: 03/19/2020 10:04:00 AM Patient Name: Melissa Pena Visit Number: [id number] Discharge Date: 03/24/2020 02:41:00 PM ATTENTION: The Clinical Documentation Specialists (CDI) and [facility] Coding Staff appreciate your assistance in clarifying documentation. Please respond to the clarification below the line at the bottom and electronically sign. The CDI & [facility] Coding staff will review the response and follow-up if needed. Please note: Queries are made part of the Legal Health Record. If you have any questions, please contact the author of this message via ITS. Dr. Andrew Gonsales 03/20 PN documents Lingular pneumonia, versus mass versus atelectasis, PN 03/19 documents Pneumonia under ASSESSMENT. Please clarify if patient had pneumonia or was it ruled out. History/Risk Factors: Sepsis wit UTI ESBL. history of pneumonia, Patient allergic to many antibiotics Clinical Indicators: Vital signs: 100.1 F, 111 bpm, 18, 139/77, 96 RA WBC/Left shift: 12.8 X-ray: Chronic changes w/o new suspicion for acute pulmonary process Treatment: Invanz gentle IV fluids In order to capture the severity of condition, please clarify if patient had pneumonia or was it ruled out. Pneumonia Pneumonia ruled out Bacterial Pneumonia, specify causal organism (if known) Gram Negative Pneumonia Due to Strep ?Due to Staph ?Due to E. Coli ?Other bacteria (please specify) Viral Pneumonia, specify casual organism (if known) Healthcare Acquired Pneumonia/Pneumonia, unspecified Other, please specify Unable to determine Pneumonia ruled out MTDD
== END 2020-03-24 14:41 | disposition home health service (06) | DRG 871 ==
LOC: EC 18:56 → 4SSUR 19:48 → 6NMEDSUR 03-17 16:04 → 4SSUR 03-17 16:26 → OBSVTOIN 03-19 10:04
PROVIDERS: ADMIT Family Medicine; ATTEND Family Medicine
PROC: 05HA33Z Insertion of Infusion Device into Left Brachial Vein, Percutaneous Approach (ICD-10-PCS; principal; 2020-03-23 12:35)
DX: A41.51 Sepsis due to Escherichia coli [E. coli] (principal); J96.01 Acute respiratory failure with hypoxia; G93.41 Metabolic encephalopathy; E27.40 Unspecified adrenocortical insufficiency; J98.11 Atelectasis; N12 Tubulo-interstitial nephritis, not specified as acute or chronic; Z16.12 Extended spectrum beta lactamase (ESBL) resistance; E87.2 Acidosis; R65.20 Severe sepsis without septic shock; E11.40 Type 2 diabetes mellitus with diabetic neuropathy, unspecified; E11.65 Type 2 diabetes mellitus with hyperglycemia; E21.3 Hyperparathyroidism, unspecified; E78.5 Hyperlipidemia, unspecified; F32.9 Major depressive disorder, single episode, unspecified; G43.919 Migraine, unspecified, intractable, without status migrainosus; G47.33 Obstructive sleep apnea (adult) (pediatric); Z99.89 Dependence on other enabling machines and devices; Z20.828 Contact with and (suspected) exposure to other viral communicable diseases; I10 Essential (primary) hypertension; M79.7 Fibromyalgia; N20.0 Calculus of kidney; Z87.442 Personal history of urinary calculi; N28.1 Cyst of kidney, acquired; N30.20 Other chronic cystitis without hematuria; Z79.02 Long term (current) use of antithrombotics/antiplatelets; Z79.4 Long term (current) use of insulin; Z79.82 Long term (current) use of aspirin; Z79.899 Other long term (current) drug therapy; Z80.49 Family history of malignant neoplasm of other genital organs; Z82.3 Family history of stroke; Z82.49 Family history of ischemic heart disease and other diseases of the circulatory system; Z83.3 Family history of diabetes mellitus; Z86.14 Personal history of Methicillin resistant Staphylococcus aureus infection; Z86.19 Personal history of other infectious and parasitic diseases; Z86.718 Personal history of other venous thrombosis and embolism; Z86.73 Personal history of transient ischemic attack (TIA), and cerebral infarction without residual deficits; Z87.01 Personal history of pneumonia (recurrent); Z87.440 Personal history of urinary (tract) infections; Z88.1 Allergy status to other antibiotic agents; Z88.5 Allergy status to narcotic agent; Z88.0 Allergy status to penicillin; Z88.2 Allergy status to sulfonamides; Z88.8 Allergy status to other drugs, medicaments and biological substances; Z89.431 Acquired absence of right foot; Z90.49 Acquired absence of other specified parts of digestive tract; Z90.710 Acquired absence of both cervix and uterus; Z90.89 Acquired absence of other organs; R42 Dizziness and giddiness; R47.1 Dysarthria and anarthria; M19.90 Unspecified osteoarthritis, unspecified site; Z98.1 Arthrodesis status; Z98.42 Cataract extraction status, left eye; Z98.41 Cataract extraction status, right eye; Z83.6 Family history of other diseases of the respiratory system; I65.03 Occlusion and stenosis of bilateral vertebral arteries
CPT/HCPCS: 36410; 71045; 71250; 74176; 76770; 76937; 80048; 80053; 81001; 83605; 83735; 83880; 84132; 85025; 87040; 87086; 94640; 94760; 96361; 96365; 96367; 96375; 96376; 99285

== ENCOUNTER 2020-04-16 16:40 | Inpatient (IN) | payer MEDICARE, BC ==
[2020-04-16] MEDS ORDERED: HYDROCORTISONE 10 MG TAB PO STA (17:33)
[2020-04-16] MEDS ORDERED: SODIUM CHLORIDE 0.9% 1,000 ML IV ONE (17:34)
[2020-04-16 18:16] LABS: Basophils % (A) 0 %; Eosinophils # (A) 0.4 k/uL (0-0.7); Eosinophils % (A) 6 %; Hypochromasia Marked; Lymphocytes # (A) 1.8 k/uL (1.0-4.8); Lymphocytes % (A) 28 %; MCH 28.1 pg (25.0-35.0); MCHC 30.6 g/dL (31.0-37.0); MCV 91.9 fL (80.0-100.0); Mean Platelet Volume 8.3; Monocytes # (A) 0.6 k/uL (0-1.0); Monocytes % (A) 9 %; Neutrophils # (A) 3.6 k/uL (1.3-7.7); Neutrophils % (A) 55 %; Platelet Count 220 k/uL (150-450); RBC 4.25 m/uL (3.80-5.40); RDW 15.2 % (11.5-15.5); WBC 6.5 k/uL (3.8-10.6)
[2020-04-16 18:27] LABS: Albumin 2.6 g/dL (3.5-5.0); Calcium 8.1 mg/dL (8.4-10.2); Potassium 3.9 mmol/L (3.5-5.1); Total Bilirubin 0.6 mg/dL (0.2-1.3); Total Protein 4.8 g/dL (6.3-8.2)
--- NOTE | 2020-04-16 18:33 | CT ---
EXAMINATION TYPE: CT abdomen pelvis wo con DATE OF EXAM: 04/16/2020 COMPARISON: 03/17/2020 HISTORY: Abdominal pain and nausea. CT DLP: 529.5 mGycm Automated exposure control for dose reduction was used. There is some patchy linear infiltrate and atelectasis at the lung bases. Heart is enlarged. There is no pericardial effusion. There is no pleural effusion. There is old lateral lower left rib fractures . Liver and spleen appear intact. The bile ducts are not dilated. Stomach is intact. There is no eviden ce of pancreatic mass. There are clips from cholecystectomy. There is no adrenal mass. Kidneys show no hydronephrosis. There are some calculi in the left kidney that measure up to 4 mm. Th ere is no hydronephrosis. There are renal cortical cysts that measure up to 3 cm. There is no sign of solid renal mass. Ureters are not dilated. There is no retroperitoneal adenopathy. Abdominal aorta i s atheromatous. There is no inguinal hernia. Bladder distends smoothly. There is calcification at the posterior aspect of the urinary bladder. It is not clear if this is a bladder calculus or outside of the bladder. This measures 12 mm. There is no inguinal hernia. There is hysterectomy. There is no fr ee fluid in the pelvis. There is no mesenteric edema. There is no ascites or free air. There is no bowel obstruction. Intesti nal pattern is normal. Appendix is not seen. There is no sign of thickened appendix. There is posterior fusion surgery in the lower lumbar spine from L3 to S1. Vertebra have normal align ment. There is no compression fracture. There are old healed bilateral pubic rami fractures. IMPRESSION: There is patchy scarring and atelectasis at the lung bases slightly increased on the left side compared to old exam. No suspicious pulmonary mass. Nonobstructing renal calculi unchanged. No acute abnormality in the abdomen pelvis. No adverse change compared to old exam. .
[2020-04-16 19:28] LABS: Amorphous Sediment,Urine Rare /hpf; Appearance,Urine Cloudy (Clear); Bacteria,Urine Rare /hpf; Bilirubin,Urine 2+ (Negative); Blood,Urine Small (Negative); Color,Urine Yellow; Glucose,Urine (UA) Negative (Negative); Hyaline Casts,Urine 77 /lpf (0-2); Ketones,Urine 1+ (Negative); Leukocyte Esterase,Urine Moderate (Negative); Mucus,Urine Moderate /hpf; Nitrite,Urine Negative (Negative); Protein,Urine 1+ (Negative); RBC,Urine 3 /hpf (0-5); Specific Gravity,Urine 1.023 (1.001-1.035); Squamous Epithelial Cell,Urine 1 /hpf (0-4); WBC,Urine 11 /hpf (0-5)
--- NOTE | 2020-04-16 19:31 | ED ---
Abdominal Pain HPI - General Chief Complaint: Abdominal Pain Stated Complaint: renal insufficiency, abd pain Time Seen by Provider: 04/16/20 16:48 Source: EMS Mode of arrival: EMS Limitations: no limitations - History of Present Illness Initial Comments: Patient is a 69-year-old female presents with history of diabetes, hypertension who presents to the emergency room as a transfer from [facility]. She was recently hospitalized for sepsis secondary to UTI. Since she has been home she has had nausea and vomiting. States that she has been unable to hold down any of her medications including her Cortef. When she went into [facility] she was found to be in acute kidney failure with a creatinine of 3. Patient has normal baseline kidney function. Patient also admits to flank pain secondary to her history of kidney stones. She denies any hematemesis. No changes in her bowel or bladder habits. No other alleviating, precipitating or modifying factors - Related Data Home Medications Medication Instructions Recorded Confirmed Cholecalciferol [Vitamin D3 (25 3,000 unit PO DAILY@0700 12/01/14 04/16/20 Mcg = 1000 Iu)] Metoprolol Succinate (ER) [Toprol 50 mg PO HS 07/06/17 04/16/20 XL] Meclizine [Antivert] 25 mg PO TID PRN 11/26/17 04/16/20 Hydrocortisone [Cortef] 15 mg PO AC-BRKFST 05/18/18 04/16/20 Hydrocortisone [Cortef] 5 mg PO HS 06/26/18 04/16/20 Glucagon Emergency Kit 1 mg IM ONCE PRN 08/12/18 04/16/20 Cranberry 300mg 300 mg PO BID 10/08/18 04/16/20 Ferrous Sulfate [Iron (65 MG 325 mg PO DAILY 10/08/18 04/16/20 Elemental)] Folic Acid 0.4 mg PO DAILY 10/08/18 04/16/20 L.acidoph,Paracasei, B.lactis 2 cap PO BID 10/08/18 04/16/20 [Probiotic] Melatonin 5 mg PO HS PRN 10/08/18 04/16/20 Multivitamins, Thera Liquid 30 ml PO DAILY 10/08/18 04/16/20 [Theragran Liquid (formulary)] Potassium 99 mg PO DAILY 10/08/18 04/16/20 Thiamine [Vitamin B-1] 100 mg PO DAILY 10/08/18 04/16/20 Vitamin B-Complex Drops 1 ml PO BID 10/08/18 04/16/20 Pantoprazole [Protonix] 40 mg PO BID 01/29/19 04/16/20 Venlafaxine HCl [Effexor XR] 75 mg PO DAILY 11/08/19 04/16/20 Acetaminophen Tab [Tylenol] 1,000 mg PO Q6HR PRN 12/06/19 04/16/20 Clopidogrel [Plavix] 75 mg PO DAILY 12/06/19 04/16/20 Magnesium Oxide [Mag-Ox] 400 mg PO DAILY 12/06/19 04/16/20 Ondansetron HCl [Zofran] 4 mg PO Q6H PRN 12/06/19 04/16/20 Promethazine 6.25MG/5Ml [Phenergan 6.25 mg PO Q6H PRN 12/06/19 04/16/20 Syrup] Spironolactone [Aldactone] 50 mg PO DAILY 12/30/19 04/16/20 Estrogens, Conjugated Cream 1 applicator VAGINAL WESA 02/16/20 04/16/20 [Premarin Cream] HYDROcodone/APAP 10-325MG [[place] 1 tab PO TID 04/16/20 04/16/20 10-325] Hydrocortisone [Cortef] 10 mg PO W/LUNCH 04/16/20 04/16/20 Insulin Glargine [Lantus] 26 unit SQ HS 04/16/20 04/16/20 Previous Rx's Medication Instructions Recorded Aspirin 81 mg PO DAILY #0 07/02/18 Atorvastatin [Lipitor] 40 mg PO HS #30 tab 11/16/18 Cholestyramine (with Sugar) 4 gm PO TID BETWEEN MEALS #30 02/19/20 [Questran Packet] packet Metoclopramide [Reglan] 5 mg PO TID PRN #30 tab 02/19/20 lisinopriL [Zestril] 40 mg PO W/BRKFST #60 tab 02/19/20 INSULIN ASPART (NovoLOG) [NovoLOG 14 unit SQ AC-BRKFST vial 02/25/20 (formulary)] INSULIN ASPART (NovoLOG) [NovoLOG 18 unit SQ AC-LUNCH vial 02/25/20 (formulary)] INSULIN ASPART (NovoLOG) [NovoLOG 24 unit SQ AC-SUPPER vial 02/25/20 (formulary)] Butalb/APAP/Caff 50-325-40Mg 1 tab PO QID PRN #12 tab 02/26/20 [Fioricet 50-325-40] Gabapentin [Neurontin] 100 mg PO TID #9 cap 03/24/20 Allergies Allergy/AdvReac Type Severity Reaction Status Date / Time butorphanol tartrate Allergy BLISTERS Verified 04/16/20 17:51 [From Stadol] IN MOUTH ceftriaxone [From Rocephin] Allergy Unknown Verified 04/16/20 17:51 clarithromycin [From Biaxin] Allergy Rash/Hives Verified 04/16/20 17:51 codeine Allergy Rash/Hives Verified 04/16/20 17:51 ergotamine tartrate Allergy Unknown Verified 04/16/20 17:51 [From Cafergot] erythromycin base Allergy RASH, GI Verified 04/16/20 17:51 [From E-Mycin] SYMPTOMS ketorolac tromethamine Allergy Rash/Hives Verified 04/16/20 17:51 [From Toradol] liraglutide [From Victoza] Allergy Rash/Hives Verified 04/16/20 17:51 morphine Allergy Rash/Hives Verified 04/16/20 17:51 Penicillins Allergy Rash/Hives Verified 04/16/20 17:51 pentazocine lactate Allergy SEVERE Verified 04/16/20 17:51 [From Talwin] BLISTERS IN MOUTH pregabalin [From Lyrica] Allergy Rash/Hives Verified 04/16/20 17:51 propoxyphene HCl Allergy Rash/Hives Verified 04/16/20 17:51 [From Darvon] Sulfa (Sulfonamide Allergy Rash/Hives Verified 04/16/20 17:51 Antibiotics) tramadol Allergy Unknown Verified 04/16/20 17:51 monosodium glutamate [MSG] AdvReac Nausea & Verified 04/16/20 17:51 Vomiting nalbuphine HCl [From Nubain] AdvReac Nausea & Verified 04/16/20 17:51 Vomiting Review of Systems ROS Statement: Those systems with pertinent positive or pertinent negative responses have been documented in the HPI. ROS Other: All systems not noted in ROS Statement are negative. Past Medical History Past Medical History: Diabetes Mellitus, Deep Vein Thrombosis (DVT), Fibromyalgia, Hyperlipidemia, Hypertension, Osteoarthritis (OA), Pneumonia, Renal Disease, Sleep Apnea/CPAP/BIPAP, Vascular Disorder Additional Past Medical History / Comment(s): Pt recently admitted to [facility] On 02/23/20 with complicated UTI/migraine/nausea and vomiting. 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, DVT R calf in 1976, cardiac murmur, occipital neuraligia, balance issues-has narrowing of vessels "in the back of my head", vertigo, varicosities, states rt shoulder torn rotator cuff History of Any Multi-Drug Resistant Organisms: ESBL, MRSA, VRE Date of last positivie culture/infection: 11/09/19 ESBL; 03/10/11 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 MDRO Source:: ESBL URINE; MRSA 4th rt TOE VRE URINE Past Surgical History: Appendectomy, Back Surgery, Bladder Surgery, Breast Surgery, Cholecystectomy, Heart Catheterization, Hysterectomy, Orthopedic Surgery, Tonsillectomy Additional Past Surgical History / Comment(s): Lumbar fusions, bladder suspension, occipital nerve blocks, 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, R wrist/elbow nerve repair, bone removed R shoulder, 4th toe R foot partial amputation, bilateral feet/bunionectomies, R knee arthroscopies, R orbit decompression with ethmoidectomy and eyelid lift, EGD, colonoscopies, cystocopies, lithotripsy/stents, bilateral breast reduction, bilateral cataract removals, parathyroid surgery - April 2019, pain clinic procedures Past Anesthesia/Blood Transfusion Reactions: No Reported Reaction Additional Past Anesthesia/Blood Transfusion Reaction / Comment(s): never recieved blood Past Psychological History: Depression Smoking Status: Never smoker Past Alcohol Use History: None Reported Past Drug Use History: None Reported - Past Family History Father Family Medical History: Coronary Artery Disease (CAD), CVA/TIA, Diabetes Mellitus, Myocardial Infarction ([place]), Pneumonia Additional Family Medical History / Comment(s): Father at the age of 78yrs from [place] and pneumonia. Mother Family Medical History: Cancer Additional Family Medical History / Comment(s): Mother had uterine cancer. She recently at the age of 96yrs old from [employer]. General Exam Limitations: no limitations General appearance: alert, in no apparent distress Head exam: Present: atraumatic, normocephalic, normal inspection Eye exam: Present: normal appearance, PERRL, EOMI, conjunctival injection, other (crusted drainage b/l eyes). Absent: scleral icterus, periorbital swelling ENT exam: Present: normal exam, mucous membranes moist Neck exam: Present: normal inspection. Absent: tenderness, meningismus, l ymphadenopathy Respiratory exam: Present: normal lung sounds bilaterally. Absent: respiratory distress, wheezes, rales, rhonchi, stridor Cardiovascular Exam: Present: regular rate, normal rhythm, normal heart sounds. Absent: systolic murmur, diastolic murmur, rubs, gallop, clicks GI/Abdominal exam: Present: soft, normal bowel sounds. Absent: distended, tenderness, guarding, rebound, rigid Extremities exam: Present: normal inspection, full ROM, normal capillary refill. Absent: tenderness, pedal edema, joint swelling, calf tenderness Back exam: Present: normal inspection Neurological exam: Present: alert, oriented X3, CN II-XII intact Psychiatric exam: Present: normal affect, normal mood Skin exam: Present: warm, dry, intact, normal color. Absent: rash Course Vital Signs 04/16/20 04/16/20 04/16/20 16:48 18:00 18:58 Temperature 97.1 F L Pulse Rate 77 69 Respiratory 16 18 18 Rate Blood Pressure 83/51 95/58 114/59 O2 Sat by Pulse 96 95 95 Oximetry 04/16/20 20:18 Temperature Pulse Rate 69 Respiratory 18 Rate Blood Pressure 114/59 O2 Sat by Pulse 95 Oximetry Medical Decision Making - Medical Decision Making Upon arrival patient is placed into room 12. A thorough history and physical exam is performed.-pack-year from [facility] is reviewed. I did by the patient with her dose of Cortef as her blood pressure remains low. Laboratory studies were repeated. Creatinine is 2.7. Urinalysis continues to demonstrate signs of a urinary tract infection. She was previously on Invanz. I did order Levaquin under direction by Dr. Fletcher. He also ordered anabiotic eyedrops for the patient. Recommended hospital admission for acute kidney injury. Patient will be slowly hydrated. Dr. Gonsales did agree to this and the patient was transferred to floor in stable condition - Lab Data Result diagrams: 04/20/20 04:58 04/20/20 04:58 Lab Results 04/16/20 04/16/20 04/16/20 Range/Units 17:55 17:55 19:18 WBC 6.5 (3.8-10.6) k/uL RBC 4.25 (3.80-5.40) m/uL Hgb 12.0 (11.4-16.0) gm/dL Hct 39.0 (34.0-46.0) % MCV 91.9 (80.0-100.0) fL MCH 28.1 (25.0-35.0) pg MCHC 30.6 L (31.0-37.0) g/dL RDW 15.2 (11.5-15.5) % Plt Count 220 (150-450) k/uL Neutrophils % 55 % Lymphocytes % 28 % Monocytes % 9 % Eosinophils % 6 % Basophils % 0 % Neutrophils # 3.6 (1.3-7.7) k/uL Lymphocytes # 1.8 (1.0-4.8) k/uL Monocytes # 0.6 (0-1.0) k/uL Eosinophils # 0.4 (0-0.7) k/uL Basophils # 0.0 (0-0.2) k/uL Hypochromasia Marked Sodium 136 L (137-145) mmol/L Potassium 3.9 (3.5-5.1) mmol/L Chloride 109 H (98-107) mmol/L Carbon Dioxide 11 L (22-30) mmol/L Anion Gap 16 mmol/L BUN 15 (7-17) mg/dL Creatinine 2.73 H (0.52-1.04) mg/dL Est GFR (CKD-EPI)AfAm 20 (>60 ml/min/1.73 sqM) Est GFR (CKD-EPI)NonAf 17 (>60 ml/min/1.73 sqM) Glucose 159 H (74-99) mg/dL Calcium 8.1 L (8.4-10.2) mg/dL Total Bilirubin 0.6 (0.2-1.3) mg/dL AST 16 (14-36) U/L ALT 8 (4-34) U/L Alkaline Phosphatase 77 (38-126) U/L Total Protein 4.8 L (6.3-8.2) g/dL Albumin 2.6 L (3.5-5.0) g/dL Lipase 45 (23-300) U/L Urine Color Yellow Urine Appearance Cloudy H (Clear) Urine pH 5.0 (5.0-8.0) Ur Specific [place] 1.023 (1.001-1.035) Urine Protein 1+ H (Negative) Urine Glucose (UA) Negative (Negative) Urine Ketones 1+ H (Negative) Urine Blood Small H (Negative) Urine Nitrite Negative (Negative) Urine Bilirubin 2+ H (Negative) Urine Urobilinogen 6.0 (<2.0) mg/dL Ur Leukocyte Esterase Moderate H (Negative) Urine RBC 3 (0-5) /hpf Urine WBC 11 H (0-5) /hpf Ur Squamous Epith Cells 1 (0-4) /hpf Amorphous Sediment Rare H (None) /hpf Urine Bacteria Rare H (None) /hpf Hyaline Casts 77 H (0-2) /lpf Urine Mucus Moderate H (None) /hpf Disposition Clinical Impression: MARIO (acute kidney injury), Hypotension, Conjunctivitis Disposition: ADMITTED IP TO THIS [facility] Condition: Stable Is patient prescribed a controlled substance at d/c from ED?: No Decision to Admit Reason: Admit from EC Decision Date: 04/16/20 Decision Time: 19:31
[2020-04-16] MEDS ORDERED: LEVOFLOXACIN 750MG-D5W PMX 750 MG in DEXTROSE/WATER 1 150ML.BAG IVPB STA (19:32)
[2020-04-16] MEDS ORDERED: NALOXONE 0.4 MG/ML 1 ML VIAL IV PRN (19:33)
[2020-04-16] MEDS ORDERED: PROMETHAZINE HCL 6.25 MG/5 ML CUP PO PRN (19:36)
[2020-04-16] MEDS ORDERED: METOCLOPRAMIDE 5 MG TAB PO PRN (19:36)
[2020-04-16 20:13] LABS: Glucose,Whole Blood 138 mg/dL (75-99)
[2020-04-16] MEDS: INSULIN ASPART (NovoLOG) 100 UNIT/ML VIAL SQ SCH (20:17)
[2020-04-16] MEDS: INSULIN DETEMIR (LEVEMIR) 100 UNIT/ML SYR SQ SCH (21:25)
[2020-04-16] MEDS: SODIUM CHLORIDE 0.9% 1,000 ML IV SCH (21:26)
[2020-04-16] MEDS: ONDANSETRON 4 MG/2 ML VIAL IVP PRN (21:40)
[2020-04-16] MEDS: HYDROmorphone 0.5 MG/0.5 ML SYRINGE IVP PRN (22:06)
[2020-04-16] MEDS: HYDROcodone/APAP 10-325MG 1 EACH TAB PO SCH (23:08)
[2020-04-16] MEDS: METOPROLOL SUCCINATE (ER) 50 MG TAB.ER.24H PO SCH (23:12)
[2020-04-16] MEDS: GABAPENTIN 100 MG CAP PO SCH (23:12)
[2020-04-16] MEDS: ATORVASTATIN 40 MG TAB PO SCH (23:13)
[2020-04-16] MEDS: CIPROFLOXACIN 0.3% OPHTH SOLN 5 ML BTL BOTH EYES SCH ×2 (23:13→23:18)
[2020-04-16] MEDS: HYDROCORTISONE 10 MG TAB PO SCH (23:14)
[2020-04-16] MEDS: PANTOPRAZOLE 40 MG TABLET PO SCH (23:17)
[2020-04-17] MEDS: HYDROmorphone 0.5 MG/0.5 ML SYRINGE IVP PRN ×4 (02:35→19:40)
[2020-04-17] MEDS: CIPROFLOXACIN 0.3% OPHTH SOLN 5 ML BTL BOTH EYES SCH ×6 (04:04→23:58)
[2020-04-17] MEDS: ONDANSETRON 4 MG/2 ML VIAL IVP PRN ×2 (04:04→17:39)
[2020-04-17 06:35] LABS: Basophils % (A) 0 %; Eosinophils # (A) 0.2 k/uL (0-0.7); Eosinophils % (A) 6 %; HCT 36.8 % (34.0-46.0); HGB 11.7 gm/dL (11.4-16.0); Hypochromasia Slight; Lymphocytes # (A) 0.7 k/uL (1.0-4.8); Lymphocytes % (A) 18 %; MCH 28.6 pg (25.0-35.0); MCHC 31.9 g/dL (31.0-37.0); MCV 89.7 fL (80.0-100.0); Mean Platelet Volume 8.4; Monocytes # (A) 0.3 k/uL (0-1.0); Monocytes % (A) 8 %; Neutrophils # (A) 2.7 k/uL (1.3-7.7); Neutrophils % (A) 66 %; Platelet Count 212 k/uL (150-450); RDW 14.9 % (11.5-15.5); WBC 4.1 k/uL (3.8-10.6)
[2020-04-17 07:10] LABS: Glucose,Whole Blood 107 mg/dL (75-99)
[2020-04-17] MEDS: INSULIN ASPART (NovoLOG) 100 UNIT/ML VIAL SQ SCH ×3 (07:57→18:06)
[2020-04-17] MEDS: HYDROCORTISONE 10 MG TAB PO SCH ×3 (07:58→21:04)
[2020-04-17] MEDS: ASPIRIN 81 MG PO SCH (07:58)
[2020-04-17] MEDS: CLOPIDOGREL 75 MG TAB PO SCH (07:59)
[2020-04-17] MEDS: GABAPENTIN 100 MG CAP PO SCH ×3 (07:59→21:26)
[2020-04-17] MEDS: PANTOPRAZOLE 40 MG TABLET PO SCH ×2 (08:00→21:04)
[2020-04-17] MEDS: HYDROcodone/APAP 10-325MG 1 EACH TAB PO SCH ×3 (08:00→21:03)
[2020-04-17 10:02] LABS: African American GFR (CKD) 30.4 (60.0-200.0); Anion Gap 13.4 mmol/L (4.00-12.00); Calcium 8.3 mg/dL (8.7-10.3); Carbon Dioxide 16.6 mmol/L (21.6-31.8); Non-African American GFR(CKD) 26.2 (60.0-200.0); Potassium 4.7 mmol/L (3.5-5.5)
[2020-04-17] MEDS ORDERED: LEVOFLOXACIN 750MG-D5W PMX 750 MG in DEXTROSE/WATER 1 150ML.BAG IVPB SCH ×2 (10:45→21:00)
[2020-04-17 11:36] LABS: Glucose,Whole Blood 135 mg/dL (75-99)
[2020-04-17] MEDS: CHOLESTYRAMINE (WITH SUGAR) 4 GM PACKET PO SCH ×3 (12:56→17:04)
[2020-04-17 17:40] LABS: Glucose,Whole Blood 156 mg/dL (75-99)
[2020-04-17] MEDS: SODIUM CHLORIDE 0.9% 1,000 ML IV SCH ×2 (18:06→21:27)
[2020-04-17] MEDS: METOPROLOL SUCCINATE (ER) 50 MG TAB.ER.24H PO SCH ×2 (21:03→21:12)
[2020-04-17] MEDS: ATORVASTATIN 40 MG TAB PO SCH (21:03)
[2020-04-17] MEDS: INSULIN DETEMIR (LEVEMIR) 100 UNIT/ML SYR SQ SCH (21:12)
[2020-04-17 22:25] LABS: Glucose,Whole Blood 222 mg/dL (75-99)
--- NOTE | 2020-04-18 00:14 | P.HPIM ---
History of Present Illness H&P Date: 04/17/20 Chief Complaint: weakness Melissa Pena is a 69 yo F with PMH of adrenal insufficiency, recurrent UTI, chronic migraine who presented initially to outside hospital with worsening weakness and chills. Pt with frequent admissions for urosepsis and was most recently admitted 03/18-03/24. At that time she was treated with a total 14 day course of IV Invanz. Since her discharge she reports overall being extremely weak, she has barely been able ot ambulate or move. She reports that over the past week she has been too weak to eat and has been nauseated as well. On presentation vitals stable, Cr 2.7, UA with mod LE and bacteria present. Review of Systems All systems: negative Constitutional: Reports anorexia, Reports malaise, Reports sweats, Reports weakness, Denies chills, Denies fever Eyes: denies blurred vision, denies pain Ears, nose, mouth and throat: Denies headache, Denies sore throat Cardiovascular: Denies chest pain, Denies shortness of breath Respiratory: Denies cough Gastrointestinal: Denies abdominal pain, Denies diarrhea, Denies nausea, Denies vomiting Genitourinary: Reports mixed incontinence, Reports post void dribbling, Reports urgency, Denies dysuria, Denies hematuria Musculoskeletal: Denies myalgias Integumentary: Denies pruritus, Denies rash Neurological: Denies numbness, Denies weakness Psychiatric: Denies anxiety, Denies depression Endocrine: Denies fatigue, Denies weight change Past Medical History Past Medical History: Diabetes Mellitus, Deep Vein Thrombosis (DVT), Fibromyalgia, Hyperlipidemia, Hypertension, Osteoarthritis (OA), Pneumonia, Renal Disease, Sleep Apnea/CPAP/BIPAP, Vascular Disorder Additional Past Medical History / Comment(s): Pt recently admitted to [facility] On 02/23/20 with complicated UTI/migraine/nausea and vomiting. 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, DVT R calf in 1976, cardiac murmur, occipital neuraligia, balance issues-has narrowing of vessels "in the back of my head", vertigo, varicosities, states rt shoulder torn rotator cuff History of Any Multi-Drug Resistant Organisms: ESBL, MRSA, VRE Date of last positivie culture/infection: 11/09/19 ESBL; 03/10/11 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 MDRO Source:: ESBL URINE; MRSA 4th rt TOE VRE URINE Past Surgical History: Appendectomy, Back Surgery, Bladder Surgery, Breast Surgery, Cholecystectomy, Heart Catheterization, Hysterectomy, Orthopedic Surgery, Tonsillectomy Additional Past Surgical History / Comment(s): Lumbar fusions, bladder suspension, occipital nerve blocks, 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, R w rist/elbow nerve repair, bone removed R shoulder, 4th toe R foot partial amputation, bilateral feet/bunionectomies, R knee arthroscopies, R orbit decompression with ethmoidectomy and eyelid lift, EGD, colonoscopies, cystocopies, lithotripsy/stents, bilateral breast reduction, bilateral cataract removals, parathyroid surgery - April 2019, pain clinic procedures Past Anesthesia/Blood Transfusion Reactions: No Reported Reaction Additional Past Anesthesia/Blood Transfusion Reaction / Comment(s): never recieved blood Past Psychological History: Depression Smoking Status: Never smoker Past Alcohol Use History: None Reported Past Drug Use History: None Reported - Past Family History Father Family Medical History: Coronary Artery Disease (CAD), CVA/TIA, Diabetes Mellitus, Myocardial Infarction ([place]), Pneumonia Additional Family Medical History / Comment(s): Father at the age of 78yrs from [place] and pneumonia. Mother Family Medical History: Cancer Additional Family Medical History / Comment(s): Mother had uterine cancer. She recently at the age of 96yrs old from [employer]. Medications and Allergies Home Medications Medication Instructions Recorded Confirmed Type Cholecalciferol [Vitamin D3 (25 3,000 unit PO DAILY@0700 12/01/14 04/16/20 History Mcg = 1000 Iu)] Metoprolol Succinate (ER) [Toprol 50 mg PO HS 07/06/17 04/16/20 History XL] Meclizine [Antivert] 25 mg PO TID PRN 11/26/17 04/16/20 History Hydrocortisone [Cortef] 15 mg PO AC-BRKFST 05/18/18 04/16/20 History Hydrocortisone [Cortef] 5 mg PO HS 06/26/18 04/16/20 History Aspirin 81 mg PO DAILY #0 07/02/18 04/16/20 Rx Glucagon Emergency Kit 1 mg IM ONCE PRN 08/12/18 04/16/20 History Cranberry 300mg 300 mg PO BID 10/08/18 04/16/20 History Ferrous Sulfate [Iron (65 MG 325 mg PO DAILY 10/08/18 04/16/20 History Elemental)] Folic Acid 0.4 mg PO DAILY 10/08/18 04/16/20 History L.acidoph,Paracasei, B.lactis 2 cap PO BID 10/08/18 04/16/20 History [Probiotic] Melatonin 5 mg PO HS PRN 10/08/18 04/16/20 History Multivitamins, Thera Liquid 30 ml PO DAILY 10/08/18 04/16/20 History [Theragran Liquid (formulary)] Potassium 99 mg PO DAILY 10/08/18 04/16/20 History Thiamine [Vitamin B-1] 100 mg PO DAILY 10/08/18 04/16/20 History Vitamin B-Complex Drops 1 ml PO BID 10/08/18 04/16/20 History Atorvastatin [Lipitor] 40 mg PO HS #30 tab 11/16/18 04/16/20 Rx Pantoprazole [Protonix] 40 mg PO BID 01/29/19 04/16/20 History Venlafaxine HCl [Effexor XR] 75 mg PO DAILY 11/08/19 04/16/20 History Acetaminophen Tab [Tylenol] 1,000 mg PO Q6HR PRN 12/06/19 04/16/20 History Clopidogrel [Plavix] 75 mg PO DAILY 12/06/19 04/16/20 History Magnesium Oxide [Mag-Ox] 400 mg PO DAILY 12/06/19 04/16/20 History Ondansetron HCl [Zofran] 4 mg PO Q6H PRN 12/06/19 04/16/20 History Promethazine 6.25MG/5Ml [Phenergan 6.25 mg PO Q6H PRN 12/06/19 04/16/20 History Syrup] Spironolactone [Aldactone] 50 mg PO DAILY 12/30/19 04/16/20 History Estrogens, Conjugated Cream 1 applicator VAGINAL WESA 02/16/20 04/16/20 History [Premarin Cream] Cholestyramine (with Sugar) 4 gm PO TID BETWEEN MEALS #30 02/19/20 04/16/20 Rx [Questran Packet] packet Metoclopramide [Reglan] 5 mg PO TID PRN #30 tab 02/19/20 04/16/20 Rx lisinopriL [Zestril] 40 mg PO W/BRKFST #60 tab 02/19/20 04/16/20 Rx INSULIN ASPART (NovoLOG) [NovoLOG 14 unit SQ AC-BRKFST vial 02/25/20 04/16/20 Rx (formulary)] INSULIN ASPART (NovoLOG) [NovoLOG 18 unit SQ AC-LUNCH vial 02/25/20 04/16/20 Rx (formulary)] INSULIN ASPART (NovoLOG) [NovoLOG 24 unit SQ AC-SUPPER vial 02/25/20 04/16/20 Rx (formulary)] Butalb/APAP/Caff 50-325-40Mg 1 tab PO QID PRN #12 tab 02/26/20 04/16/20 Rx [Fioricet 50-325-40] Gabapentin [Neurontin] 100 mg PO TID #9 cap 03/24/20 04/16/20 Rx HYDROcodone/APAP 10-325MG [[place] 1 tab PO TID 04/16/20 04/16/20 History 10-325] Hydrocortisone [Cortef] 10 mg PO W/LUNCH 04/16/20 04/16/20 History Insulin Glargine [Lantus] 26 unit SQ HS 04/16/20 04/16/20 History Allergies Allergy/AdvReac Type Severity Reaction Status Date / Time butorphanol tartrate Allergy BLISTERS Verified 04/16/20 17:51 [From Stadol] IN MOUTH ceftriaxone [From Rocephin] Allergy Unknown Verified 04/16/20 17:51 clarithromycin [From Biaxin] Allergy Rash/Hives Verified 04/16/20 17:51 codeine Allergy Rash/Hives Verified 04/16/20 17:51 ergotamine tartrate Allergy Unknown Verified 04/16/20 17:51 [From Cafergot] erythromycin base Allergy RASH, GI Verified 04/16/20 17:51 [From E-Mycin] SYMPTOMS ketorolac tromethamine Allergy Rash/Hives Verified 04/16/20 17:51 [From Toradol] liraglutide [From Victoza] Allergy Rash/Hives Verified 04/16/20 17:51 morphine Allergy Rash/Hives Verified 04/16/20 17:51 Penicillins Allergy Rash/Hives Verified 04/16/20 17:51 pentazocine lactate Allergy SEVERE Verified 04/16/20 17:51 [From Talwin] BLISTERS IN MOUTH pregabalin [From Lyrica] Allergy Rash/Hives Verified 04/16/20 17:51 propoxyphene HCl Allergy Rash/Hives Verified 04/16/20 17:51 [From Darvon] Sulfa (Sulfonamide Allergy Rash/Hives Verified 04/16/20 17:51 Antibiotics) tramadol Allergy Unknown Verified 04/16/20 17:51 monosodium glutamate [MSG] AdvReac Nausea & Verified 04/16/20 17:51 Vomiting nalbuphine HCl [From Nubain] AdvReac Nausea & Verified 04/16/20 17:51 Vomiting Physical Exam Vitals: Vital Signs Temp Pulse Resp BP Pulse Ox 04/17/20 21:00 97.7 F 83 16 111/69 100 04/17/20 14:42 82 18 04/17/20 11:57 98.0 F 82 18 120/57 99 04/17/20 08:00 80 17 04/17/20 05:00 98.7 F 80 17 124/72 100 04/17/20 00:20 20 Intake and Output 04/17/20 04/17/20 04/18/20 14:59 22:59 06:59 Intake Total 240 Balance 240 Intake: Oral 240 Other: Voiding Method Bedpan Incontinent # Voids 2 General: well nourished, well developed, NAD. Vitals reviewed Eyes: PERRL, EOMI, conjunctiva normal HENT: normocephalic, mucus membranes moist Neck: supple, no JVD Lungs: normal respiratory effort, no wheezes or rales CV: Regular rate and rhythm, no murmur. Peripheral pulses 2+ Abdomen: soft, nondistended, no organomegaly. Suprapubic tenderness Lymph: no cervical or axillary LAD Skin: warm and dry. Neuro: A&Ox3, normal mood and affect Results CBC & Chem 7: 04/17/20 05:52 04/17/20 05:52 Labs: Abnormal Lab Results - Last 24 Hours (Table) 04/17/20 04/17/20 04/17/20 Range/Units 05:52 05:52 07:08 Lymphocytes # 0.7 L (1.0-4.8) k/uL Carbon Dioxide 16.6 L (21.6-31.8) mmol/L Anion Gap 13.40 H (4.00-12.00) mmol/L Creatinine 1.9 H (0.6-1.5) mg/dL Est GFR (CKD-EPI)AfAm 30.4 L (60.0-200.0) Est GFR (CKD-EPI)NonAf 26.2 L (60.0-200.0) BUN/Creatinine Ratio 10.00 L (12.00-20.00) Ratio Glucose 114 H (70-110) mg/dL POC Glucose (mg/dL) 107 H (75-99) mg/dL Calcium 8.3 L (8.7-10.3) mg/dL 04/17/20 04/17/20 04/17/20 Range/Units 11:32 17:37 22:15 Lymphocytes # (1.0-4.8) k/uL Carbon Dioxide (21.6-31.8) mmol/L Anion Gap (4.00-12.00) mmol/L Creatinine (0.6-1.5) mg/dL Est GFR (CKD-EPI)AfAm (60.0-200.0) Est GFR (CKD-EPI)NonAf (60.0-200.0) BUN/Creatinine Ratio (12.00-20.00) Ratio Glucose (70-110) mg/dL POC Glucose (mg/dL) 135 H 156 H 222 H (75-99) mg/dL Calcium (8.7-10.3) mg/dL Microbiology - Last 24 Hours (Table) 04/16/20 19:18 Urine Culture - Final Urine,Voided 04/16/20 17:55 Blood Culture - Preliminary Blood No Growth after 24 hours Thrombosis Risk Factor Assmnt - Choose All That Apply Any of the Below Risk Factors Present?: Yes Each Factor Represents 1 point: Obesity (BMI >25) Other Risk Factors: Yes Each Risk Factor Represents 2 Points: Age 61-74 years Other congenital or acquired thrombophilia - If yes, enter type in comment: No Thrombosis Risk Factor Assessment Total Risk Factor Score: 3 Thrombosis Risk Factor Assessment Level: Moderate Risk Assessment and Plan (1) MARIO (acute kidney injury) Current Visit: Yes Status: Acute Code(s): N17.9 - ACUTE KIDNEY FAILURE, UNSPECIFIED SNOMED Code(s): 38251840 (2) Adrenal insufficiency Current Visit: No Status: Acute Code(s): E27.40 - UNSPECIFIED ADRENOCORTICAL INSUFFICIENCY SNOMED Code(s): 012833858 (3) UTI (urinary tract infection) Current Visit: No Status: Acute Code(s): N39.0 - URINARY TRACT INFECTION, SITE NOT SPECIFIED SNOMED Code(s): 15067490 (4) DM type 2 (diabetes mellitus, type 2) Current Visit: No Status: Chronic Code(s): E11.9 - TYPE 2 DIABETES MELLITUS WITHOUT COMPLICATIONS SNOMED Code(s): 14358398 Plan: 1. Acute kidney injury, start IV fluids, follow labs 2. Acute cystitis. S/p recent 14 day treatment with Invanz. Will treat with lev aquin. consider continuous maintenance abx 3. Adrenal insufficiency. Hold cortef and start stress dose IV steroids 4. T2DM. Continue accucecks, sliding scale
[2020-04-18] MEDS: HYDROmorphone 0.5 MG/0.5 ML SYRINGE IVP PRN ×5 (01:36→18:54)
[2020-04-18] MEDS: CIPROFLOXACIN 0.3% OPHTH SOLN 5 ML BTL BOTH EYES SCH ×5 (04:56→21:58)
[2020-04-18 07:06] LABS: Glucose,Whole Blood 181 mg/dL (75-99)
[2020-04-18] MEDS: CLOPIDOGREL 75 MG TAB PO SCH (09:07)
[2020-04-18] MEDS: HYDROcodone/APAP 10-325MG 1 EACH TAB PO SCH ×4 (09:07→22:01)
[2020-04-18] MEDS: ASPIRIN 81 MG PO SCH (09:07)
[2020-04-18] MEDS: GABAPENTIN 100 MG CAP PO SCH ×3 (09:07→22:02)
[2020-04-18] MEDS: PANTOPRAZOLE 40 MG TABLET PO SCH ×2 (09:08→22:02)
[2020-04-18] MEDS: CHOLESTYRAMINE (WITH SUGAR) 4 GM PACKET PO SCH ×3 (09:08→15:11)
[2020-04-18] MEDS: ONDANSETRON 4 MG/2 ML VIAL IVP PRN ×2 (09:08→15:16)
[2020-04-18] MEDS: INSULIN ASPART (NovoLOG) 100 UNIT/ML VIAL SQ SCH ×3 (09:10→18:19)
[2020-04-18 11:23] LABS: Glucose,Whole Blood 175 mg/dL (75-99)
[2020-04-18] MEDS: SODIUM CHLORIDE 0.9% 1,000 ML IV SCH (11:33)
[2020-04-18] MEDS: HYDROCORTISONE 10 MG TAB PO SCH ×2 (13:43→22:02)
[2020-04-18 17:31] LABS: Glucose,Whole Blood 212 mg/dL (75-99)
[2020-04-18] MEDS ORDERED: LEVOFLOXACIN 750MG-D5W PMX 750 MG in DEXTROSE/WATER 1 150ML.BAG IVPB SCH (21:00)
[2020-04-18 21:23] LABS: Glucose,Whole Blood 115 mg/dL (75-99)
[2020-04-18] MEDS: METOPROLOL SUCCINATE (ER) 50 MG TAB.ER.24H PO SCH (22:00)
[2020-04-18] MEDS: ATORVASTATIN 40 MG TAB PO SCH (22:01)
[2020-04-18] MEDS: INSULIN DETEMIR (LEVEMIR) 100 UNIT/ML SYR SQ SCH (22:21)
[2020-04-19] MEDS: CIPROFLOXACIN 0.3% OPHTH SOLN 5 ML BTL BOTH EYES SCH ×6 (00:57→21:10)
[2020-04-19] MEDS: HYDROmorphone 0.5 MG/0.5 ML SYRINGE IVP PRN ×4 (03:57→19:48)
[2020-04-19] MEDS: SODIUM CHLORIDE 0.9% 1,000 ML IV SCH ×2 (05:32→16:41)
[2020-04-19 06:00] LABS: Basophils % (A) 1 %; Eosinophils # (A) 0.3 k/uL (0-0.7); Eosinophils % (A) 7 %; HGB 10.9 gm/dL (11.4-16.0); Hypochromasia Marked; Lymphocytes # (A) 1.3 k/uL (1.0-4.8); Lymphocytes % (A) 33 %; MCHC 30.2 g/dL (31.0-37.0); MCV 92.5 fL (80.0-100.0); Mean Platelet Volume 8.4; Monocytes # (A) 0.3 k/uL (0-1.0); Monocytes % (A) 8 %; Neutrophils # (A) 1.9 k/uL (1.3-7.7); Neutrophils % (A) 49 %; Platelet Count 214 k/uL (150-450); RBC 3.89 m/uL (3.80-5.40); RDW 14.6 % (11.5-15.5); WBC 3.9 k/uL (3.8-10.6)
[2020-04-19 07:10] LABS: Glucose,Whole Blood 115 mg/dL (75-99)
[2020-04-19] MEDS: INSULIN ASPART (NovoLOG) 100 UNIT/ML VIAL SQ SCH ×3 (07:13→16:58)
[2020-04-19] MEDS: HYDROcodone/APAP 10-325MG 1 EACH TAB PO SCH ×3 (07:24→21:09)
[2020-04-19] MEDS: CHOLESTYRAMINE (WITH SUGAR) 4 GM PACKET PO SCH ×3 (07:24→16:57)
[2020-04-19] MEDS: ASPIRIN 81 MG PO SCH (07:25)
[2020-04-19] MEDS: GABAPENTIN 100 MG CAP PO SCH ×3 (07:25→21:08)
[2020-04-19] MEDS: PANTOPRAZOLE 40 MG TABLET PO SCH ×2 (07:25→21:08)
[2020-04-19] MEDS: CLOPIDOGREL 75 MG TAB PO SCH (07:25)
[2020-04-19] MEDS: HYDROCORTISONE 10 MG TAB PO SCH ×3 (07:27→21:08)
[2020-04-19] MEDS: ONDANSETRON 4 MG/2 ML VIAL IVP PRN ×3 (08:11→22:47)
[2020-04-19 10:24] LABS: African American GFR (CKD) 101.7 (60.0-200.0); Anion Gap 11.3 mmol/L (4.00-12.00); Calcium 8.3 mg/dL (8.7-10.3); Carbon Dioxide 21.7 mmol/L (21.6-31.8); Non-African American GFR(CKD) 87.8 (60.0-200.0); Potassium 3.8 mmol/L (3.5-5.5)
[2020-04-19 11:01] LABS: Glucose,Whole Blood 155 mg/dL (75-99)
[2020-04-19 17:09] LABS: Glucose,Whole Blood 166 mg/dL (75-99)
[2020-04-19 19:59] LABS: Glucose,Whole Blood 175 mg/dL (75-99)
[2020-04-19] MEDS: LEVOFLOXACIN 750 MG TAB PO SCH (21:08)
[2020-04-19] MEDS: METOPROLOL SUCCINATE (ER) 50 MG TAB.ER.24H PO SCH (21:08)
[2020-04-19] MEDS: ATORVASTATIN 40 MG TAB PO SCH (21:08)
[2020-04-19] MEDS: INSULIN DETEMIR (LEVEMIR) 100 UNIT/ML SYR SQ SCH (21:12)
--- NOTE | 2020-04-19 22:14 | P.PN ---
Subjective Progress Note Date: 04/18/20 Principal diagnosis: MARIO Pena is a 69 yo F with PMH of adrenal insufficiency, recurrent UTI, chronic migraine who presented initially to outside hospital with worsening weakness and chills. Pt with frequent admissions for urosepsis and was most recently admitted 03/18-03/24. At that time she was treated with a total 14 day course of IV Invanz. Since her discharge she reports overall being extremely weak, she has barely been able ot ambulate or move. She reports that over the past week she has been too weak to eat and has been nauseated as well. On presentation vitals stable, Cr 2.7, UA with mod LE and bacteria present. 04/18/2020 Patient is currently lying in the bed. Seems lethargic and drowsy. Complains of generalized weakness and loss of appetite. No fever no chills. No cough or sputum production. Patient does have nausea and no vomiting or abdominal pain or diarrhea. No chest pain or shortness of breath. Blood sugar is around 175. Current medications reviewed. Objective - Vital Signs Vital signs: Vital Signs Temp 98.6 F 04/18/20 12:08 Pulse 100 04/18/20 12:08 Resp 17 04/18/20 12:08 BP 103/56 04/18/20 12:08 Pulse Ox 94 L 04/18/20 12:08 Intake & Output 04/18/20 04/18/20 04/19/20 06:59 18:59 05:59 Intake Total 225 1050 Balance 225 1050 Intake: Intake, IV Titration 225 450 Amount Sodium Chloride 0.9% 1, 225 450 000 ml @ 75 mls/hr IV . [id number] [facility] Rx#:[id number] Oral 600 Other: Voiding Method Bedpan Bedpan Incontinent Incontinent # Voids 2 0 0 # Bowel Movements 0 0 - Exam General: well nourished, well developed, NAD. Vitals reviewed Eyes: PERRL, EOMI, conjunctiva normal HENT: normocephalic, mucus membranes moist Neck: supple, no JVD Lungs: normal respiratory effort, no wheezes or rales CV: Regular rate and rhythm, no murmur. Peripheral pulses 2+ Abdomen: soft, nondistended, no organomegaly. Suprapubic tenderness Lymph: no cervical or axillary LAD Skin: warm and dry. Neuro: A&Ox3, normal mood and affect - Labs CBC & Chem 7: 04/19/20 05:38 04/19/20 05:38 Labs: Abnormal Lab Results - Last 24 Hours (Table) 04/17/20 04/18/20 04/18/20 Range/Units 22:15 07:04 11:22 POC Glucose (mg/dL) 222 H 181 H 175 H (75-99) mg/dL 04/18/20 Range/Units 17:30 POC Glucose (mg/dL) 212 H (75-99) mg/dL Microbiology - Last 24 Hours (Table) 04/16/20 19:18 Urine Culture - Final Urine,Voided 04/16/20 17:55 Blood Culture - Preliminary Blood No Growth after 24 hours Assessment and Plan Assessment: 1. Acute kidney injury. likely prerenal. cr 2.73 0n admission. c/w IV fluids, follow labs 2. Acute cystitis. S/p recent 14 day treatment with Invanz. Currently started on levaquin. consider continuous maintenance abx. Urine culture showed no growth. 3. Adrenal insufficiency. Hold cortef and start stress dose IV steroids 4. T2IDDM. Continue accucecks, sliding scale 5. Hypovolemic hyponatremia. improved. Time with Patient: Greater than 30
--- NOTE | 2020-04-19 22:17 | P.PN ---
Subjective Progress Note Date: 04/19/20 Principal diagnosis: MARIO Pena is a 69 yo F with PMH of adrenal insufficiency, recurrent UTI, chronic migraine who presented initially to outside hospital with worsening weakness and chills. Pt with frequent admissions for urosepsis and was most recently admitted 03/18-03/24. At that time she was treated with a total 14 day course of IV Invanz. Since her discharge she reports overall being extremely weak, she has barely been able ot ambulate or move. She reports that over the past week she has been too weak to eat and has been nauseated as well. On presentation vitals stable, Cr 2.7, UA with mod LE and bacteria present. 04/18/2020 Patient is currently lying in the bed. Seems lethargic and drowsy. Complains of generalized weakness and loss of appetite. No fever no chills. No cough or sputum production. Patient does have nausea and no vomiting or abdominal pain or diarrhea. No chest pain or shortness of breath. Blood sugar is around 175. 04/19/2020 Patient is currently sitting in the chair comfortably. Feels better compared to yesterday. Still nauseated but no episodes of vomiting. Wants to try solid diet today. Patient is tolerating liquids with Ensure and fluids. No complaints of cough or sputum production. No fever no chills. No chest pain or shortness of breath. Laboratory data showed WBC 3.9, hemoglobin 10.9, platelets 214 Creatinine level improved to 0.7 today. Encourage oral intake and anticipate discharge in the next 24 hours with more clinical improvement. Current medications reviewed. Objective - Vital Signs Vital signs: Vital Signs Temp 98.3 F 04/19/20 11:29 Pulse 78 04/19/20 11:29 Resp 18 04/19/20 11:29 BP 123/67 04/19/20 11:29 Pulse Ox 92 L 04/19/20 11:29 Intake & Output 04/19/20 04/19/20 04/20/20 06:59 18:59 06:59 Intake Total 590 Balance 590 Intake: Intake, IV Titration Amount Sodium Chloride 0.9% 1, 000 ml @ 75 mls/hr IV . [id number] [facility] Rx#:[id number] Oral 590 Other: Voiding Method Bedside Commode Diaper Incontinent # Voids 3 1 # Bowel Movements - Exam General: well nourished, well developed, NAD. Vitals reviewed Eyes: PERRL, EOMI, conjunctiva normal HENT: normocephalic, mucus membranes moist Neck: supple, no JVD Lungs: normal respiratory effort, no wheezes or rales CV: Regular rate and rhythm, no murmur. Peripheral pulses 2+ Abdomen: soft, nondistended, no organomegaly. Suprapubic tenderness Lymph: no cervical or axillary LAD Skin: warm and dry. Neuro: A&Ox3, normal mood and affect - Labs CBC & Chem 7: 04/19/20 05:38 04/19/20 05:38 Labs: Abnormal Lab Results - Last 24 Hours (Table) 04/19/20 04/19/20 04/19/20 Range/Units 05:38 05:38 07:09 Hgb 10.9 L (11.4-16.0) gm/dL MCHC 30.2 L (31.0-37.0) g/dL BUN 7.0 L (9.0-27.0) mg/dL BUN/Creatinine Ratio 10.00 L (12.00-20.00) Ratio Glucose 122 H (70-110) mg/dL POC Glucose (mg/dL) 115 H (75-99) mg/dL Calcium 8.3 L (8.7-10.3) mg/dL 04/19/20 04/19/20 04/19/20 Range/Units 11:00 16:57 19:57 Hgb (11.4-16.0) gm/dL MCHC (31.0-37.0) g/dL BUN (9.0-27.0) mg/dL BUN/Creatinine Ratio (12.00-20.00) Ratio Glucose (70-110) mg/dL POC Glucose (mg/dL) 155 H 166 H 175 H (75-99) mg/dL Calcium (8.7-10.3) mg/dL Microbiology - Last 24 Hours (Table) 04/16/20 17:55 Blood Culture - Preliminary Blood No Growth after 48 hours Assessment and Plan Assessment: 1. Acute kidney injury. likely prerenal. cr 2.73 0n admission. c/w IV fluids, follow labs 2. Acute cystitis. S/p recent 14 day treatment with Invanz. Currently started on levaquin. consider continuous maintenance abx. Urine culture showed no growth. 3. Adrenal insufficiency. Hold cortef and start stress dose IV steroids 4. T2IDDM. Continue accucecks, sliding scale 5. Hypovolemic hyponatremia. improved. Time with Patient: Greater than 30
[2020-04-20] MEDS: HYDROmorphone 0.5 MG/0.5 ML SYRINGE IVP PRN ×2 (00:08→04:20)
[2020-04-20] MEDS: CIPROFLOXACIN 0.3% OPHTH SOLN 5 ML BTL BOTH EYES SCH ×6 (00:11→20:58)
[2020-04-20] MEDS: SODIUM CHLORIDE 0.9% 1,000 ML IV SCH ×2 (00:11→20:59)
[2020-04-20 05:15] LABS: Basophils % (A) 0 %; Eosinophils # (A) 0.2 k/uL (0-0.7); Eosinophils % (A) 6 %; HCT 31.8 % (34.0-46.0); HGB 10.3 gm/dL (11.4-16.0); Hypochromasia Slight; Lymphocytes # (A) 1.1 k/uL (1.0-4.8); Lymphocytes % (A) 35 %; MCH 28.4 pg (25.0-35.0); MCHC 32.5 g/dL (31.0-37.0); Mean Platelet Volume 8.1; Monocytes # (A) 0.2 k/uL (0-1.0); Monocytes % (A) 7 %; Neutrophils # (A) 1.5 k/uL (1.3-7.7); Neutrophils % (A) 49 %; Platelet Count 236 k/uL (150-450); RBC 3.65 m/uL (3.80-5.40); RDW 14.5 % (11.5-15.5); WBC 3.1 k/uL (3.8-10.6)
[2020-04-20] MEDS: ONDANSETRON 4 MG/2 ML VIAL IVP PRN ×3 (05:45→22:37)
[2020-04-20 05:48] LABS: MCV 87.3 fL (80.0-100.0)
[2020-04-20 07:06] LABS: Glucose,Whole Blood 127 mg/dL (75-99)
[2020-04-20] MEDS: HYDROCORTISONE 10 MG TAB PO SCH ×3 (08:04→20:58)
[2020-04-20] MEDS: ASPIRIN 81 MG PO SCH (08:05)
[2020-04-20] MEDS: PANTOPRAZOLE 40 MG TABLET PO SCH ×2 (08:05→20:57)
[2020-04-20] MEDS: CLOPIDOGREL 75 MG TAB PO SCH (08:05)
[2020-04-20] MEDS: INSULIN ASPART (NovoLOG) 100 UNIT/ML VIAL SQ SCH ×3 (08:05→17:31)
[2020-04-20] MEDS: GABAPENTIN 100 MG CAP PO SCH ×3 (08:05→20:57)
[2020-04-20] MEDS: HYDROcodone/APAP 10-325MG 1 EACH TAB PO SCH ×3 (08:17→20:57)
[2020-04-20 09:25] LABS: BUN/Creat Ratio 8.33 Ratio (12.00-20.00); Calcium 8.3 mg/dL (8.7-10.3); Non-African American GFR(CKD) 92.4 (60.0-200.0); Potassium 3.5 mmol/L (3.5-5.5)
[2020-04-20 11:17] LABS: Glucose,Whole Blood 241 mg/dL (75-99)
[2020-04-20] MEDS: CHOLESTYRAMINE (WITH SUGAR) 4 GM PACKET PO SCH ×3 (11:49→17:31)
--- NOTE | 2020-04-20 12:01 | P.PN ---
Subjective Progress Note Date: 04/20/20 Melissa Pena is a 69 yo F with PMH of adrenal insufficiency, recurrent UTI, chronic migraine who presented initially to outside hospital with worsening weakness and chills. Pt with frequent admissions for urosepsis and was most recently admitted 03/18-03/24. At that time she was treated with a total 14 day course of IV Invanz. Since her discharge she reports overall being extremely weak, she has barely been able ot ambulate or move. She reports that over the past week she has been too weak to eat and has been nauseated as well. On presentation vitals stable, Cr 2.7, UA with mod LE and bacteria present. Maintained on Levaquin. Urine culture reported no growth. Continues on stress dose IV steroids and IV fluid hydration. Renal function significantly improved. Denies chest pain, palpitations or shortness of breath. Objective - Vital Signs Vital signs: Vital Signs Temp 97.9 F 04/20/20 11:43 Pulse 71 04/20/20 11:43 Resp 17 04/20/20 11:43 BP 151/75 04/20/20 11:43 Pulse Ox 98 04/20/20 11:43 Intake & Output 04/19/20 04/20/20 04/20/20 18:59 06:59 18:59 Intake Total 2079 Balance 2079 Intake: Intake, IV Titration 900 Amount Sodium Chloride 0.9% 1, 900 000 ml @ 75 mls/hr IV . [id number] [facility] Rx#:[id number] Oral 1180 Other: Voiding Method Bedside Commode Bedside Commode Bedside Commode Diaper Diaper Diaper Incontinent Incontinent Incontinent # Voids 3 3 - Exam General: Sitting up in bed ,NAD. Vitals reviewed Eyes: PERRL, EOMI, conjunctiva normal HENT: normocephalic, mucus membranes moist Neck: supple, no JVD Lungs: normal respiratory effort, no rhonchi, rales , or wheezes. CV: Regular rate and rhythm, no murmur. Peripheral pulses 2+ Abdomen: soft, nondistended, minimal diffuse tenderness, no organomegaly. Positive bowel sounds Skin: warm and dry. Neuro: A&Ox3, normal mood and affect, no focal deficits. - Labs CBC & Chem 7: 04/20/20 04:58 04/20/20 04:58 Labs: Abnormal Lab Results - Last 24 Hours (Table) 04/19/20 04/19/20 04/20/20 Range/Units 16:57 19:57 04:58 WBC 3.1 L (3.8-10.6) k/uL RBC 3.65 L (3.80-5.40) m/uL Hgb 10.3 L (11.4-16.0) gm/dL Hct 31.8 L (34.0-46.0) % BUN (9.0-27.0) mg/dL BUN/Creatinine Ratio (12.00-20.00) Ratio Glucose (70-110) mg/dL POC Glucose (mg/dL) 166 H 175 H (75-99) mg/dL Calcium (8.7-10.3) mg/dL 04/20/20 04/20/20 04/20/20 Range/Units 04:58 07:05 11:16 WBC (3.8-10.6) k/uL RBC (3.80-5.40) m/uL Hgb (11.4-16.0) gm/dL Hct (34.0-46.0) % BUN 5.0 L (9.0-27.0) mg/dL BUN/Creatinine Ratio 8.33 L (12.00-20.00) Ratio Glucose 144 H (70-110) mg/dL POC Glucose (mg/dL) 127 H 241 H (75-99) mg/dL Calcium 8.3 L (8.7-10.3) mg/dL Microbiology - Last 24 Hours (Table) 04/16/20 17:55 Blood Culture - Preliminary Blood No Growth after 72 hours Assessment and Plan Assessment: (1) MARIO (acute kidney injury) Current Visit: Yes Status: Acute Code(s): N17.9 - ACUTE KIDNEY FAILURE, UNS PECIFIED SNOMED Code(s): 03057390 (2) acute cystitis, status post recent 14 day treatment with Invanz (3) Adrenal insufficiency Current Visit: No Status: Acute Code(s): E27.40 - UNSPECIFIED ADRENOCORTICAL INSUFFICIENCY SNOMED Code(s): 351995656 (4) DM type 2 (diabetes mellitus, type 2) Current Visit: No Status: Chronic Code(s): E11.9 - TYPE 2 DIABETES MELLITUS WITHOUT COMPLICATIONS SNOMED Code(s): 79253885 Plan: Continue on current medication regime ,monitoring and symptomatic treatment. Maintain IV fluid hydration, IV antibiotics. Pain management with Dilaudid discontinued. Increase ambulation as tolerated. Continue holding Jason and Aldactone. Discharge planning in progress for tomorrow. Discussed with roz cooper, who verbalizes understanding and agreement with. Patient declining subacute rehab. The impression and plan of care has been dictated as directed. : I performed a history and examination of this patient, discussed the same with the dictator. I agree with the dictator's note ,documented as a scribe. Any additional findings or plans will be noted.
[2020-04-20 17:17] LABS: Glucose,Whole Blood 202 mg/dL (75-99)
[2020-04-20 20:18] LABS: Glucose,Whole Blood 206 mg/dL (75-99)
[2020-04-20] MEDS: LEVOFLOXACIN 750 MG TAB PO SCH (20:57)
[2020-04-20] MEDS: ATORVASTATIN 40 MG TAB PO SCH (20:57)
[2020-04-20] MEDS: INSULIN DETEMIR (LEVEMIR) 100 UNIT/ML SYR SQ SCH (20:57)
[2020-04-20] MEDS: METOPROLOL SUCCINATE (ER) 50 MG TAB.ER.24H PO SCH (20:57)
[2020-04-21] MEDS: SODIUM CHLORIDE 0.9% 1,000 ML IV SCH ×2 (02:18→14:55)
[2020-04-21] MEDS: CIPROFLOXACIN 0.3% OPHTH SOLN 5 ML BTL BOTH EYES SCH ×6 (02:19→20:57)
[2020-04-21 07:10] LABS: Glucose,Whole Blood 137 mg/dL (75-99)
[2020-04-21] MEDS: CLOPIDOGREL 75 MG TAB PO SCH (07:45)
[2020-04-21] MEDS: ASPIRIN 81 MG PO SCH (07:45)
[2020-04-21] MEDS: GABAPENTIN 100 MG CAP PO SCH ×3 (07:45→20:57)
[2020-04-21] MEDS: PANTOPRAZOLE 40 MG TABLET PO SCH ×2 (07:46→20:56)
[2020-04-21] MEDS: HYDROCORTISONE 10 MG TAB PO SCH ×3 (07:46→20:55)
[2020-04-21] MEDS: INSULIN ASPART (NovoLOG) 100 UNIT/ML VIAL SQ SCH ×3 (07:46→18:07)
[2020-04-21] MEDS: HYDROcodone/APAP 10-325MG 1 EACH TAB PO SCH ×3 (08:13→20:54)
[2020-04-21] MEDS: CHOLESTYRAMINE (WITH SUGAR) 4 GM PACKET PO SCH ×3 (08:13→18:08)
[2020-04-21] MEDS ORDERED: HYDROmorphone 0.5 MG/0.5 ML SYRINGE IVP STA (09:23)
[2020-04-21 11:23] LABS: Glucose,Whole Blood 137 mg/dL (75-99)
[2020-04-21] MEDS: ONDANSETRON 4 MG/2 ML VIAL IVP PRN ×2 (14:54→23:19)
[2020-04-21 17:13] LABS: Glucose,Whole Blood 175 mg/dL (75-99)
[2020-04-21 20:23] LABS: Glucose,Whole Blood 116 mg/dL (75-99)
[2020-04-21] MEDS: INSULIN DETEMIR (LEVEMIR) 100 UNIT/ML SYR SQ SCH (20:54)
[2020-04-21] MEDS: ATORVASTATIN 40 MG TAB PO SCH (20:55)
[2020-04-21] MEDS: LEVOFLOXACIN 750 MG TAB PO SCH (20:56)
[2020-04-21] MEDS: METOPROLOL SUCCINATE (ER) 50 MG TAB.ER.24H PO SCH (20:56)
--- NOTE | 2020-04-21 23:11 | P.PN ---
Subjective Progress Note Date: 04/21/20 Melissa Pena is a 69 yo F with PMH of adrenal insufficiency, recurrent UTI, chronic migraine who presented initially to outside hospital with worsening weakness and chills. Pt with frequent admissions for urosepsis and was most recently admitted 03/18-03/24. At that time she was treated with a total 14 day course of IV Invanz. Since her discharge she reports overall being extremely weak, she has barely been able to ambulate or move. She reports that over the past week she has been too weak to eat and has been nauseated as well. On presentation vitals stable, Cr 2.7, UA with mod LE and bacteria present. 04/21: She continues on levaquin, pt complaining of feeling weak and shaky today, denies nausea or vomiting although appetite is poor. She again complains of abdominal pain as well as migraine, feels nothing has helped in the past but dilaudid. Pt did not work with PT yesterday as felt too tired. Objective - Vital Signs Vital signs: Vital Signs Temp 99.1 F 04/21/20 20:20 Pulse 89 04/21/20 20:20 Resp 16 04/21/20 20:20 BP 147/90 04/21/20 20:20 Pulse Ox 95 04/21/20 20:20 Intake & Output 04/21/20 04/21/20 04/22/20 06:59 18:59 06:59 Intake Total 900 600 Balance 900 600 Intake: Intake, IV Titration 900 600 Amount Sodium Chloride 0.9% 1, 900 600 000 ml @ 75 mls/hr IV . [id number] [facility] Rx#:[id number] Other: Voiding Method Bedside Commode Bedside Commode # Voids 1 - Exam General: well nourished, well developed, NAD. Vitals reviewed Lungs: normal respiratory effort, no wheezes or rales CV: Regular rate and rhythm, no murmur. Peripheral pulses 2+ Abdomen: soft, nondistended, no organomegaly. Mild R sided tenderness Skin: warm and dry. - Labs CBC & Chem 7: 04/20/20 04:58 04/20/20 04:58 Labs: Abnormal Lab Results - Last 24 Hours (Table) 04/21/20 04/21/20 04/21/20 Range/Units 07:09 11:21 17:12 POC Glucose (mg/dL) 137 H 137 H 175 H (75-99) mg/dL 04/21/20 Range/Units 20:19 POC Glucose (mg/dL) 116 H (75-99) mg/dL Microbiology - Last 24 Hours (Table) 04/16/20 17:55 Blood Culture - Preliminary Blood No Growth after 120 hours Assessment and Plan (1) MARIO (acute kidney injury) Current Visit: Yes Status: Acute Code(s): N17.9 - ACUTE KIDNEY FAILURE, UNSPECIFIED SNOMED Code(s): 80689740 (2) Adrenal insufficiency Current Visit: No Status: Acute Code(s): E27.40 - UNSPECIFIED ADRENOCORTICAL INSUFFICIENCY SNOMED Code(s): 240998950 (3) UTI (urinary tract infection) Current Visit: No Status: Acute Code(s): N39.0 - URINARY TRACT INFECTION, SITE NOT SPECIFIED SNOMED Code(s): 64883281 (4) DM type 2 (diabetes mellitus, type 2) Current Visit: No Status: Chronic Code(s): E11.9 - TYPE 2 DIABETES MELLITUS WITHOUT COMPLICATIONS SNOMED Code(s): 57095661 Plan: Continue with levaquin, pt will likely need prophylactic antibiotic on disc harge. Continue with cortef and sliding scale insulin. Continue with zofran, reglan prn for nausea. Discharge planning in progress
[2020-04-22] MEDS: HYDROmorphone 0.5 MG/0.5 ML SYRINGE IVP STA ×2 (01:03→02:19)
[2020-04-22] MEDS ORDERED: HYDROmorphone 0.5 MG/0.5 ML SYRINGE IVP STA (01:51)
[2020-04-22] MEDS: CIPROFLOXACIN 0.3% OPHTH SOLN 5 ML BTL BOTH EYES SCH ×7 (01:52→23:50)
[2020-04-22] MEDS: SODIUM CHLORIDE 0.9% 1,000 ML IV SCH ×3 (04:37→22:10)
[2020-04-22] MEDS: ONDANSETRON 4 MG/2 ML VIAL IVP PRN ×2 (04:48→21:24)
[2020-04-22 07:06] LABS: Glucose,Whole Blood 149 mg/dL (75-99)
[2020-04-22] MEDS: PANTOPRAZOLE 40 MG TABLET PO SCH ×2 (07:41→21:27)
[2020-04-22] MEDS: ASPIRIN 81 MG PO SCH (07:41)
[2020-04-22] MEDS: CLOPIDOGREL 75 MG TAB PO SCH (07:42)
[2020-04-22] MEDS: GABAPENTIN 100 MG CAP PO SCH ×3 (07:42→21:28)
[2020-04-22] MEDS: HYDROCORTISONE 10 MG TAB PO SCH ×3 (07:42→21:24)
[2020-04-22] MEDS: INSULIN ASPART (NovoLOG) 100 UNIT/ML VIAL SQ SCH ×3 (07:43→18:11)
[2020-04-22] MEDS: HYDROcodone/APAP 10-325MG 1 EACH TAB PO SCH ×3 (08:09→22:08)
--- NOTE | 2020-04-22 10:46 | CT ---
EXAMINATION TYPE: CT abdomen pelvis wo con DATE OF EXAM: 04/22/2020 HISTORY: Severe right-sided abdominal and pelvic pain CT DLP: 352 mGycm. Automated Exposure Control for Dose Reduction was Utilized. TECHNIQUE: CT scan of the abdomen and pelvis is performed without oral or IV contrast. COMPARISON: CT abdomen and pelvis 6 days ago and older studies FINDINGS: Within the limitations of a non-contrast study, the following observations are made. LUNG BASES: Persistent cardiomegaly. Persistent [id number] left greater than right bibasilar sc arring and/or atelectasis. Small pericardial effusion anterior inferior aspect slightly larger from p rior studies. LIVER/GB: Cholecystectomy clips are redemonstrated. PANCREAS: No significant abnormality is seen. SPLEEN: No significant abnormality is seen. ADRENALS: No significant abnormality is seen. KIDNEYS: There is 4 mm nonobstructing calculus left kidney anteriorly upper and midpole level echoes measures 25 slightly changed in position from most recent prior study. There are simple appearing thi n-walled cysts bilaterally. No hydronephrosis or new obstructing ureteral calculi bilaterally. Scatte red bilateral pelvic phleboliths. BOWEL: Stomach poorly distended and thus suboptimally evaluated. No suspicious small or large bowel dilatation. GENITAL ORGANS: Uterus surgically absent. LYMPH NODES: No greater than 1cm abdominal or pelvic lymph nodes are appreciated. OSSEOUS STRUCTURES: Posterior interpedicular rods and screws transfix L3-S1 levels bilaterally. Align ment is stable. Artificial disc material L3-L4 level. Marked disc space L4-L5 and L5-S1 levels. Moder ate to severe disc space narrowing with vacuum disc phenomenon and moderate to severe anterior spurri ng L2-L3 level redemonstrated. Redemonstration of healing or healed bilateral superior and inferior p elvic rami fractures. OTHER: Posterior dystrophic calcifications or injection granulomas in the gluteal tissue are again se en, findings extend into the posterior right thigh region similar to prior. IMPRESSION: The 4 mm left renal calculus is changed position slightly more centrally on current study versus most recent prior. No hydronephrosis or obstructing ureteral calculi. No significant new or a cute finding identified
[2020-04-22 11:30] LABS: Glucose,Whole Blood 181 mg/dL (75-99)
[2020-04-22] MEDS: CHOLESTYRAMINE (WITH SUGAR) 4 GM PACKET PO SCH ×3 (12:53→18:10)
[2020-04-22 13:59] VITALS: BMI 25.0
[2020-04-22 15:28] LABS: Appearance,Urine Cloudy (Clear); Bilirubin,Urine Negative (Negative); Blood,Urine Negative (Negative); Color,Urine Light Yellow; Glucose,Urine (UA) 1+ (Negative); Ketones,Urine 1+ (Negative); Leukocyte Esterase,Urine Large (Negative); Mucus,Urine Rare /hpf; Nitrite,Urine Negative (Negative); PH, Urine 6.5 (5.0-8.0); Protein,Urine Negative (Negative); RBC,Urine 1 /hpf (0-5); Specific Gravity,Urine 1.006 (1.001-1.035); Squamous Epithelial Cell,Urine <1 /hpf (0-4); Urobilinogen,Urine <2.0 mg/dL (<2.0); WBC,Urine 101 /hpf (0-5)
[2020-04-22 18:21] LABS: Glucose,Whole Blood 221 mg/dL (75-99)
[2020-04-22 20:38] LABS: Glucose,Whole Blood 135 mg/dL (75-99)
[2020-04-22] MEDS: METOPROLOL SUCCINATE (ER) 50 MG TAB.ER.24H PO SCH (21:25)
[2020-04-22] MEDS: ATORVASTATIN 40 MG TAB PO SCH (21:27)
[2020-04-22] MEDS: LEVOFLOXACIN 750 MG TAB PO SCH (21:27)
[2020-04-22] MEDS: INSULIN DETEMIR (LEVEMIR) 100 UNIT/ML SYR SQ SCH (21:30)
[2020-04-22 22:35] LABS: Glucose,Whole Blood 80 mg/dL (75-99)
--- NOTE | 2020-04-22 23:13 | P.PN ---
Subjective Progress Note Date: 04/22/20 Principal diagnosis: coco Pena is a 69 yo F with PMH of adrenal insufficiency, recurrent UTI, chronic migraine who presented initially to outside hospital with worsening weakness and chills. Pt with frequent admissions for urosepsis and was most recently admitted 03/18-03/24. At that time she was treated with a total 14 day course of IV Invanz. Since her discharge she reports overall being extremely weak, she has barely been able to ambulate or move. She reports that over the past week she has been too weak to eat and has been nauseated as well. On presentation vitals stable, Cr 2.7, UA with mod LE and bacteria present. 04/21: She continues on levaquin, pt complaining of feeling weak and shaky today, denies nausea or vomiting although appetite is poor. She again complains of abdominal pain as well as migraine, feels nothing has helped in the past but dilaudid. Pt did not work with PT yesterday as felt too tired. 04/22: She continues to complain of severe R sided abdominal pain although is resting in bed in no acute distress. She is asking for dilaudid and states she does not feel she can leave the hospital. Pt complains she is weak and shaky. She did work with PT and was independent for her ADLs. Objective - Vital Signs Vital signs: Vital Signs Temp 97.8 F 04/22/20 20:35 Pulse 87 04/22/20 20:35 Resp 16 04/22/20 20:35 BP 138/88 04/22/20 20:35 Pulse Ox 93 L 04/22/20 20:35 Intake & Output 04/22/20 04/22/20 04/23/20 06:59 18:59 06:59 Intake Total 600 Balance 600 Weight 58 kg Intake: Intake, IV Titration 600 Amount Sodium Chloride 0.9% 1, 600 000 ml @ 75 mls/hr IV . [id number] [facility] Rx#:[id number] Other: Voiding Method Bedside Commode Bedside Commode # Voids 2 1 - Exam General: well nourished, well developed, NAD. Vitals reviewed Lungs: normal respiratory effort, no wheezes or rales CV: Regular rate and rhythm, no murmur. Peripheral pulses 2+ Abdomen: soft, nondistended, no organomegaly. Mild R sided tenderness Skin: warm and dry. - Labs CBC & Chem 7: 04/20/20 04:58 04/20/20 04:58 Labs: Abnormal Lab Results - Last 24 Hours (Table) 04/22/20 04/22/20 04/22/20 Range/Units 07:04 11:29 15:15 POC Glucose (mg/dL) 149 H 181 H (75-99) mg/dL Urine Appearance Cloudy H (Clear) Urine Glucose (UA) 1+ H (Negative) Urine Ketones 1+ H (Negative) Ur Leukocyte Esterase Large H (Negative) Urine WBC 101 H (0-5) /hpf Urine Mucus Rare H (None) /hpf 04/22/20 04/22/20 Range/Units 18:09 20:36 POC Glucose (mg/dL) 221 H 135 H (75-99) mg/dL Urine Appearance (Clear) Urine Glucose (UA) (Negative) Urine Ketones (Negative) Ur Leukocyte Esterase (Negative) Urine WBC (0-5) /hpf Urine Mucus (None) /hpf Microbiology - Last 24 Hours (Table) 04/16/20 17:55 Blood Culture - Final Blood No Growth after 144 hours Assessment and Plan (1) MARIO (acute kidney injury) Current Visit: Yes Status: Acute Code(s): N17.9 - ACUTE KIDNEY FAILURE, U NSPECIFIED SNOMED Code(s): 62774212 (2) Adrenal insufficiency Current Visit: No Status: Acute Code(s): E27.40 - UNSPECIFIED ADRENOCORTICAL INSUFFICIENCY SNOMED Code(s): 690991253 (3) UTI (urinary tract infection) Current Visit: No Status: Acute Code(s): N39.0 - URINARY TRACT INFECTION, SITE NOT SPECIFIED SNOMED Code(s): 90168952 (4) DM type 2 (diabetes mellitus, type 2) Current Visit: No Status: Chronic Code(s): E11.9 - TYPE 2 DIABETES MELLITUS WITHOUT COMPLICATIONS SNOMED Code(s): 40211110 (5) Chronic pain syndrome Current Visit: Yes Status: Acute Code(s): G89.4 - CHRONIC PAIN SYNDROME SNOMED Code(s): 723723979 Plan: With worsened symptoms will repeat UA and CT abd/pelvis. Suspect psychosocial overlay and pain syndrom. No evidence of resistant infection. Continue with levaquin, pt will likely need prophylactic antibiotic on discharge. Continue with cortef and sliding scale insulin. Continue with zofran, reglan prn for nausea. Discharge planning in progress
[2020-04-23] MEDS ORDERED: ACETAMINOPHEN TAB 325 MG TAB PO PRN (00:48)
[2020-04-23] MEDS: ONDANSETRON 4 MG/2 ML VIAL IVP PRN ×2 (03:09→08:12)
[2020-04-23] MEDS: CIPROFLOXACIN 0.3% OPHTH SOLN 5 ML BTL BOTH EYES SCH ×2 (03:58→08:11)
[2020-04-23 07:13] LABS: Glucose,Whole Blood 91 mg/dL (75-99)
[2020-04-23] MEDS: HYDROcodone/APAP 10-325MG 1 EACH TAB PO SCH (08:10)
[2020-04-23] MEDS: INSULIN ASPART (NovoLOG) 100 UNIT/ML VIAL SQ SCH ×2 (08:10→12:38)
[2020-04-23] MEDS: HYDROCORTISONE 10 MG TAB PO SCH (08:10)
[2020-04-23] MEDS: GABAPENTIN 100 MG CAP PO SCH (08:10)
[2020-04-23 08:45] VITALS: RESP 18
[2020-04-23] MEDS: ASPIRIN 81 MG PO SCH (10:05)
[2020-04-23] MEDS: CLOPIDOGREL 75 MG TAB PO SCH (10:05)
[2020-04-23] MEDS: PANTOPRAZOLE 40 MG TABLET PO SCH (10:05)
[2020-04-23] MEDS: CHOLESTYRAMINE (WITH SUGAR) 4 GM PACKET PO SCH (10:52)
[2020-04-23 11:32] VITALS: BP 154/84; PULSE 70; TEMP 98.2
[2020-04-23 11:55] LABS: Glucose,Whole Blood 138 mg/dL (75-99)
--- NOTE | 2020-04-23 13:59 | P.DS ---
Providers Date of admission: 04/16/20 19:36 Expected date of discharge: 04/23/20 Attending physician: Andrew Gonsales MD Primary care physician: Andrew Gonsales MD - Discharge Diagnosis(es) (1) MARIO (acute kidney injury) Current Visit: Yes Status: Acute (2) Adrenal insufficiency Current Visit: No Status: Acute (3) UTI (urinary tract infection) Current Visit: No Status: Acute (4) DM type 2 (diabetes mellitus, type 2) Current Visit: No Status: Chronic (5) Chronic pain syndrome Current Visit: Yes Status: Acute (6) MARIO (acute kidney injury) Current Visit: Yes Status: Acute (7) At risk for readmission to hospital Current Visit: No Status: Acute (8) Complicated UTI (urinary tract infection) Current Visit: No Status: Acute (9) Dehydration Current Visit: No Status: Acute Hospital Course: Melissa Pena is a 69 yo F with PMH of adrenal insufficiency, recurrent UTI, chronic migraine who presented initially to outside hospital with worsening weakness and chills. Pt with frequent admissions for urosepsis and was most recently admitted 03/18-03/24. At that time she was treated with a total 14 day course of IV Invanz. Since her discharge she reports overall being extremely weak, she has barely been able to ambulate or move. She reports that over the past week she has been too weak to eat and has been nauseated as well. On presentation vitals stable, Cr 2.7, UA with mod LE and bacteria present. 04/21: She continues on levaquin, pt complaining of feeling weak and shaky today, denies nausea or vomiting although appetite is poor. She again complains of abdominal pain as well as migraine, feels nothing has helped in the past but dilaudid. Pt did not work with PT yesterday as felt too tired. 04/22: She continues to complain of severe R sided abdominal pain although is resting in bed in no acute distress. She is asking for dilaudid and states she does not feel she can leave the hospital. Pt complains she is weak and shaky. She did work with PT today. 04/23: Pt's repeat CT and UA resulted clear. She is agreeable to subacute rehab today due to continued weakness and inability to complete ADLs. She is discharged in stable condition, recommended to start keflex qhs for UTI prophylaxis and decrease her lantus to 8 units qhs. She is recommended to resume her home [place] dose. Discharge exam: General: well nourished, well developed, NAD. Vitals reviewed HENT: normocephalic, mucus membranes moist Lungs: normal respiratory effort, no wheezes or rales CV: Regular rate and rhythm, no murmur. Peripheral pulses 2+ Abdomen: soft, nondistended, no organomegaly Skin: warm and dry. Neuro: A&Ox3, normal mood and affect Patient Condition at Discharge: Stable Plan - Discharge Summary Discharge Rx Participant: No New Discharge Prescriptions: New Cephalexin [Keflex] 250 mg PO HS #30 cap Continue Cholecalciferol [Vitamin D3 (25 Mcg = 1000 Iu)] 3,000 unit PO DAILY@0700 Metoprolol Succinate (ER) [Toprol XL] 50 mg PO HS Meclizine [Antivert] 25 mg PO TID PRN PRN Reason: Vertigo Hydrocortisone [Cortef] 15 mg PO AC-BRKFST Hydrocortisone [Cortef] 5 mg PO HS Aspirin 81 mg PO DAILY #0 Glucagon Emergency Kit 1 mg IM ONCE PRN PRN Reason: Hypoglycemia Ferrous Sulfate [Iron (65 MG Elemental)] 325 mg PO DAILY Vitamin B-Complex Drops 1 ml PO BID Thiamine [Vitamin B-1] 100 mg PO DAILY Folic Acid 0.4 mg PO DAILY Multivitamins, Thera Liquid [Theragran Liquid (formulary)] 30 ml PO DAILY L.acidoph,Paracasei, B.lactis [Probiotic] 2 cap PO BID Melatonin 5 mg PO HS PRN PRN Reason: Insomnia Cranberry 300mg 300 mg PO BID Potassium 99 mg PO DAILY Atorvastatin [Lipitor] 40 mg PO HS #30 tab Pantoprazole [Protonix] 40 mg PO BID Venlafaxine HCl [Effexor XR] 75 mg PO DAILY Magnesium Oxide [Mag-Ox] 400 mg PO DAILY Promethazine 6.25MG/5Ml [Phenergan Syrup] 6.25 mg PO Q6H PRN PRN Reason: Cough Ondansetron HCl [Zofran] 4 mg PO Q6H PRN PRN Reason: Nausea And Vomiting Acetaminophen Tab [Tylenol] 1,000 mg PO Q6HR PRN PRN Reason: Migraine Headache Clopidogrel [Plavix] 75 mg PO DAILY Spironolactone [Aldactone] 50 mg PO DAILY Estrogens, Conjugated Cream [Premarin Cream] 1 applicator VAGINAL WESA Cholestyramine (with Sugar) [Questran Packet] 4 gm PO TID BETWEEN MEALS #30 packet Metoclopramide [Reglan] 5 mg PO TID PRN #30 tab PRN Reason: Nausea lisinopriL [Zestril] 40 mg PO W/BRKFST #60 tab INSULIN ASPART (NovoLOG) [NovoLOG (formulary)] 14 unit SQ AC-BRKFST vial INSULIN ASPART (NovoLOG) [NovoLOG (formulary)] 24 unit SQ AC-SUPPER vial INSULIN ASPART (NovoLOG) [NovoLOG (formulary)] 18 unit SQ AC-LUNCH vial Butalb/APAP/Caff 50-325-40Mg [Fioricet 50-325-40] 1 tab PO QID PRN #12 tab PRN Reason: Migraine Headache Gabapentin [Neurontin] 100 mg PO TID #9 cap HYDROcodone/APAP 10-325MG [[place] 10-325] 1 tab PO TID Hydrocortisone [Cortef] 10 mg PO W/LUNCH Changed Insulin Glargine [Lantus] 8 unit SQ HS #0 Discharge Medication List Cholecalciferol [Vitamin D3 (25 Mcg = 1000 Iu)] 3,000 unit PO DAILY@0700 12/01/14 [History] Metoprolol Succinate (ER) [Toprol XL] 50 mg PO HS 07/06/17 [History] Meclizine [Antivert] 25 mg PO TID PRN 11/26/17 [History] Hydrocortisone [Cortef] 15 mg PO AC-BRKFST 05/18/18 [History] Hydrocortisone [Cortef] 5 mg PO HS 06/26/18 [History] Aspirin 81 mg PO DAILY #0 07/02/18 [Rx] Glucagon Emergency Kit 1 mg IM ONCE PRN 08/12/18 [History] Cranberry 300mg 300 mg PO BID 10/08/18 [History] Ferrous Sulfate [Iron (65 MG Elemental)] 325 mg PO DAILY 10/08/18 [History] Folic Acid 0.4 mg PO DAILY 10/08/18 [History] L.acidoph,Paracasei, B.lactis [Probiotic] 2 cap PO BID 10/08/18 [History] Melatonin 5 mg PO HS PRN 10/08/18 [History] Multivitamins, Thera Liquid [Theragran Liquid (formulary)] 30 ml PO DAILY 10/08/18 [History] Potassium 99 mg PO DAILY 10/08/18 [History] Thiamine [Vitamin B-1] 100 mg PO DAILY 10/08/18 [History] Vitamin B-Complex Drops 1 ml PO BID 10/08/18 [History] Atorvastatin [Lipitor] 40 mg PO HS #30 tab 11/16/18 [Rx] Pantoprazole [Protonix] 40 mg PO BID 01/29/19 [History] Venlafaxine HCl [Effexor XR] 75 mg PO DAILY 11/08/19 [History] Acetaminophen Tab [Tylenol] 1,000 mg PO Q6HR PRN 12/06/19 [History] Clopidogrel [Plavix] 75 mg PO DAILY 12/06/19 [History] Magnesium Oxide [Mag-Ox] 400 mg PO DAILY 12/06/19 [History] Ondansetron HCl [Zofran] 4 mg PO Q6H PRN 12/06/19 [History] Promethazine 6.25MG/5Ml [Phenergan Syrup] 6.25 mg PO Q6H PRN 12/06/19 [History] Spironolactone [Aldactone] 50 mg PO DAILY 12/30/19 [History] Estrogens, Conjugated Cream [Premarin Cream] 1 applicator VAGINAL WESA 02/16/20 [History] Cholestyramine (with Sugar) [Questran Packet] 4 gm PO TID BETWEEN MEALS #30 packet 02/19/20 [Rx] Metoclopramide [Reglan] 5 mg PO TID PRN #30 tab 02/19/20 [Rx] lisinopriL [Zestril] 40 mg PO W/BRKFST #60 tab 02/19/20 [Rx] INSULIN ASPART (NovoLOG) [NovoLOG (formulary)] 14 unit SQ AC-BRKFST vial 02/25/20 [Rx] INSULIN ASPART (NovoLOG) [NovoLOG (formulary)] 18 unit SQ AC-LUNCH vial 02/25/20 [Rx] INSULIN ASPART (NovoLOG) [NovoLOG (formulary)] 24 unit SQ AC-SUPPER vial 02/25/20 [Rx] Butalb/APAP/Caff 50-325-40Mg [Fioricet 50-325-40] 1 tab PO QID PRN #12 tab 02/26/20 [Rx] Gabapentin [Neurontin] 100 mg PO TID #9 cap 03/24/20 [Rx] HYDROcodone/APAP 10-325MG [[place] 10-325] 1 tab PO TID 04/16/20 [History] Hydrocortisone [Cortef] 10 mg PO W/LUNCH 04/16/20 [History] Cephalexin [Keflex] 250 mg PO HS #30 cap 04/23/20 [Rx] Insulin Glargine [Lantus] 8 unit SQ HS #0 04/23/20 [Rx] Follow up Appointment(s)/Referral(s): Andrew Gonsales MD [Primary Care Provider] - 3 Days [facility], [NON-STAFF] - 1 Week Discharge Disposition: TRANSFER TO SNF/ECF
--- NOTE | 2020-04-24 11:02 | CDI ---
Documentation Clarification Form Date: 04/24/20 From: Allyson Saini Phone: If you have a question about this query, please contact Lissy Chawla Vessel Master at [phone] between 8am and 5pm. Admit Date: 04/16/20 Discharge Date:04/23/20 Patient Name: Melissa Pena Visit Number: [id number] ATTENTION: The Clinical Documentation Specialists (CDI) and [facility] Coding Staff appreciate your assistance in clarifying documentation. Please respond to the clarification below the line at the bottom and electronically sign. The CDI & [facility] Coding staff will review the response and follow-up if needed. Please note: Queries are made part of the Legal Health Record. If you have any questions, please contact the author of this message via ITS. Dear Dr. Gonsales A stage I pressure injury of the coccyx was documented in the nursing documentation for 04/16 on page 8. A stage I pressure injury was documented in the dietary nutritional assessment. History/Risk Factors: Recent UTI with sepsis, current UTI, MARIO, peripheral neuropathy, DM, chronic pain syndrome Clinical Indicators: Erythema Location: Coccyx Wound description: Warm, pink Treatment: Cream applications Elements for accurate and compliant documentation of an ulcer: *The location/laterality of the ulcer *Etiology (decubitus/pressure, diabetic, PVD) *Stage I-IV, Unstageable, Suspected Deep Tissue Injury (To the deepest stage) *If the ulcer was present at admission (POA) or occurred after admission In your professional opinion, can you please clarify the diagnosis, location, laterality and whether present on admission (POA): Pressure Injury of Coccyx Ruled out Pressure injury stage I of coccyx Stage 1 Pressure/Decubitus Ulcer (intact skin, non-blanching redness of local area) Stage 2 Pressure/Decubitus Ulcer (Partial thickness, loss of dermis, pink wound bed) Stage 3 Pressure/Decubitus Ulcer (Full thickness tissue loss) Stage 4 Pressure/Decubitus Ulcer (Full thickness tissue loss with exposed bone, tendon, or muscle. May have slough or eschar present) Unstageable Other condition, please specify Unable to determine Please indicate etiology of pressure ulcer (if known). Stage 1 Pressure/Decubitus Ulcer (intact skin, non-blanching redness of local area) [facility]
== END 2020-04-23 15:51 | disposition home or self-care (01) | DRG 683 ==
LOC: EC 16:40 → 6NMEDSUR 19:36 → 5NMEDONC 04-22 17:07
PROVIDERS: ADMIT Family Medicine; ATTEND Family Medicine
DX: N17.9 Acute kidney failure, unspecified (principal); E27.40 Unspecified adrenocortical insufficiency; E87.1 Hypo-osmolality and hyponatremia; N30.00 Acute cystitis without hematuria; L89.151 Pressure ulcer of sacral region, stage 1; E11.42 Type 2 diabetes mellitus with diabetic polyneuropathy; I95.9 Hypotension, unspecified; J42 Unspecified chronic bronchitis; E21.3 Hyperparathyroidism, unspecified; Z20.828 Contact with and (suspected) exposure to other viral communicable diseases; Z79.4 Long term (current) use of insulin; Z89.421 Acquired absence of other right toe(s); E78.5 Hyperlipidemia, unspecified; E86.0 Dehydration; F32.9 Major depressive disorder, single episode, unspecified; G89.4 Chronic pain syndrome; H10.9 Unspecified conjunctivitis; I10 Essential (primary) hypertension; M79.7 Fibromyalgia; E86.1 Hypovolemia; G43.909 Migraine, unspecified, not intractable, without status migrainosus; G47.33 Obstructive sleep apnea (adult) (pediatric); R01.1 Cardiac murmur, unspecified; R32 Unspecified urinary incontinence; M15.9 Polyosteoarthritis, unspecified; Z79.02 Long term (current) use of antithrombotics/antiplatelets; Z79.82 Long term (current) use of aspirin; Z79.899 Other long term (current) drug therapy; Z79.52 Long term (current) use of systemic steroids; Z86.14 Personal history of Methicillin resistant Staphylococcus aureus infection; Z86.718 Personal history of other venous thrombosis and embolism; Z87.01 Personal history of pneumonia (recurrent); Z88.1 Allergy status to other antibiotic agents; Z88.5 Allergy status to narcotic agent; Z88.2 Allergy status to sulfonamides; Z88.8 Allergy status to other drugs, medicaments and biological substances; Z87.440 Personal history of urinary (tract) infections; Z90.49 Acquired absence of other specified parts of digestive tract; Z90.710 Acquired absence of both cervix and uterus; Z90.89 Acquired absence of other organs; Z98.890 Other specified postprocedural states; Z87.19 Personal history of other diseases of the digestive system; Z87.898 Personal history of other specified conditions; Z87.442 Personal history of urinary calculi; Z98.42 Cataract extraction status, left eye; Z98.41 Cataract extraction status, right eye; Z98.1 Arthrodesis status; Z80.49 Family history of malignant neoplasm of other genital organs; Z82.49 Family history of ischemic heart disease and other diseases of the circulatory system; Z83.3 Family history of diabetes mellitus; Z82.3 Family history of stroke; Z83.6 Family history of other diseases of the respiratory system
CPT/HCPCS: 36415; 74176; 80048; 80053; 81001; 83690; 84145; 85025; 87040; 87077; 87086; 87186; 87635; 96360; 99285

== ENCOUNTER → 2020-06-04 | Outpatient (CLI) | payer MEDICARE, BC ==
[2020-06-04 16:00] LABS: HCT 38.6 % (34.0-46.0); HGB 12.3 gm/dL (11.4-16.0); Hypochromasia Slight; MCH 28.3 pg (25.0-35.0); MCHC 31.9 g/dL (31.0-37.0); MCV 88.6 fL (80.0-100.0); Platelet Count 219 k/uL (150-450); RBC 4.36 m/uL (3.80-5.40); RDW 15.6 % (11.5-15.5); WBC 8.6 k/uL (3.8-10.6)
[2020-06-05 01:23] LABS: African American GFR (CKD) 86.6 (60.0-200.0); Albumin 4.2 g/dL (3.80-4.90); Albumin/Globulin Ratio 2.63 (1.60-3.17); Anion Gap 14.7 mmol/L (4.00-12.00); BUN/Creat Ratio 32.5 Ratio (12.00-20.00); Calcium 9.6 mg/dL (8.7-10.3); Carbon Dioxide 20.3 mmol/L (21.6-31.8); Chol/HDL Ratio 3.37; Globulin 1.6 g/dL (1.6-3.3); LDL Cholesterol,Calculated 75.4 mg/dL (0.0-131.0); Non-African American GFR(CKD) 74.7 (60.0-200.0); Potassium 4.3 mmol/L (3.5-5.5); Total Bilirubin 0.2 mg/dL (0.3-1.2); Total Protein 5.8 g/dL (6.2-8.2); VLDL Calculation 64.6 mg/dL (5.00-40.00)
[2020-06-05 04:29] LABS: Hemoglobin A1C 8.2 % (4.0-6.0)
== END | disposition home or self-care (01) ==
LOC: LABWHC1 15:25
PROVIDERS: ATTEND Family Medicine
DX: E11.9 Type 2 diabetes mellitus without complications (principal)
CPT/HCPCS: 36415; 80053; 80061; 83036; 84443; 85027

== ENCOUNTER 2020-06-25 07:19 | Observation (INO) | payer MEDICARE, BC ==
[2020-06-25] MEDS ORDERED: HYDROCORTISONE SUCCINATE 100 MG/2 ML VIAL IV STA (07:53)
[2020-06-25] MEDS ORDERED: HYDROmorphone 0.5 MG/0.5 ML SYRINGE IVP STA ×2 (07:54→12:14)
--- NOTE | 2020-06-25 08:02 | ED ---
General Adult HPI - General Chief complaint: Urogenital Stated complaint: nausea Time Seen by Provider: 06/25/20 07:20 Source: patient, EMS, RN notes reviewed, old records reviewed Mode of arrival: EMS - History of Present Illness Initial comments: This is a 69-year-old female who presents emergency Department stating she thinks she has urinary tract infection. Patient has the last couple days she's been having burning with urination and some nausea and vomiting which started yesterday. Patient denies any fever chills. Patient states she's been out of Cortef and she's feeling a little bit weaker and she believes secondary to that. Patient denies any chest pain difficult breathing shortest breath per patient denies any abdominal pain. Patient denies any back pain. Patient denies any headache patient denies lightheadedness or dizziness. Patient denies any abdominal pain. - Related Data Home Medications Medication Instructions Recorded Confirmed Cholecalciferol [Vitamin D3 (25 3,000 unit PO DAILY@0700 12/01/14 06/25/20 Mcg = 1000 Iu)] Metoprolol Succinate (ER) [Toprol 50 mg PO HS 07/06/17 06/25/20 XL] Meclizine [Antivert] 25 mg PO TID PRN 11/26/17 06/25/20 Hydrocortisone [Cortef] 15 mg PO AC-BRKFST 05/18/18 06/25/20 Hydrocortisone [Cortef] 10 mg PO HS 06/26/18 06/25/20 Glucagon Emergency Kit 1 mg IM ONCE PRN 08/12/18 06/25/20 Ferrous Sulfate [Iron (65 MG 325 mg PO DAILY 10/08/18 06/25/20 Elemental)] Folic Acid 0.4 mg PO DAILY 10/08/18 06/25/20 L.acidoph,Paracasei, B.lactis 2 cap PO BID 10/08/18 06/25/20 [Probiotic] Melatonin 5 mg PO HS PRN 10/08/18 06/25/20 Multivitamins, Thera Liquid 30 ml PO DAILY 10/08/18 06/25/20 [Theragran Liquid (formulary)] Potassium 99 mg PO DAILY 10/08/18 06/25/20 Thiamine [Vitamin B-1] 100 mg PO DAILY 10/08/18 06/25/20 Vitamin B-Complex Drops 1 ml PO BID 10/08/18 06/25/20 Venlafaxine HCl [Effexor XR] 75 mg PO DAILY 11/08/19 06/25/20 Clopidogrel [Plavix] 75 mg PO DAILY 12/06/19 06/25/20 Magnesium Oxide [Mag-Ox] 400 mg PO DAILY 12/06/19 06/25/20 HYDROcodone/APAP 10-325MG [[place] 1 tab PO TID PRN 04/16/20 06/25/20 10-325] Hydrocortisone [Cortef] 15 mg PO W/LUNCH 04/16/20 06/25/20 C,E,Zinc,Copper 11/Oltkp8c/Lut 1 cap PO DAILY 06/25/20 06/25/20 [Ocuvite Adult 50 Plus Softgel] Cranberry Fruit Extract [Cranberry] 200 mg PO BID 06/25/20 06/25/20 Cyanocobalamin (Vitamin B-12) 1,000 mcg PO DAILY 06/25/20 06/25/20 [Vitamin B-12] Insulin Glargine [Lantus] 8 unit SQ HS@2200 06/25/20 06/25/20 Metoclopramide [Reglan] 5 mg PO TID PRN 06/25/20 06/25/20 Spironolactone 50 mg PO DAILY 06/25/20 06/25/20 Vitamin E 400 unit PO DAILY 06/25/20 06/25/20 lisinopriL 40 mg PO DAILY 06/25/20 06/25/20 Previous Rx's Medication Instructions Recorded Aspirin 81 mg PO DAILY #0 07/02/18 Atorvastatin [Lipitor] 40 mg PO HS #30 tab 11/16/18 Cholestyramine (with Sugar) 4 gm PO TID BETWEEN MEALS #30 02/19/20 [Questran Packet] packet INSULIN ASPART (NovoLOG) [NovoLOG 14 unit SQ AC-BRKFST vial 02/25/20 (formulary)] INSULIN ASPART (NovoLOG) [NovoLOG 18 unit SQ AC-LUNCH vial 02/25/20 (formulary)] INSULIN ASPART (NovoLOG) [NovoLOG 24 unit SQ AC-SUPPER vial 02/25/20 (formulary)] Butalb/APAP/Caff 50-325-40Mg 1 tab PO QID PRN #12 tab 02/26/20 [Fioricet 50-325-40] Gabapentin [Neurontin] 100 mg PO TID #9 cap 03/24/20 Cephalexin [Keflex] 250 mg PO HS #30 cap 04/23/20 Allergies Allergy/AdvReac Type Severity Reaction Status Date / Time butorphanol tartrate Allergy BLISTERS Verified 06/25/20 07:57 [From Stadol] IN MOUTH ceftriaxone [From Rocephin] Allergy Unknown Verified 06/25/20 07:57 clarithromycin [From Biaxin] Allergy Rash/Hives Verified 06/25/20 07:57 codeine Allergy Rash/Hives Verified 06/25/20 07:57 ergotamine tartrate Allergy Unknown Verified 06/25/20 07:57 [From Cafergot] erythromycin base Allergy RASH, GI Verified 06/25/20 07:57 [From E-Mycin] SYMPTOMS ketorolac tromethamine Allergy Rash/Hives Verified 06/25/20 07:57 [From Toradol] liraglutide [From Victoza] Allergy Rash/Hives Verified 06/25/20 07:57 morphine Allergy Rash/Hives Verified 06/25/20 07:57 Penicillins Allergy Rash/Hives Verified 06/25/20 07:57 pentazocine lactate Allergy SEVERE Verified 06/25/20 07:57 [From Talwin] BLISTERS IN MOUTH pregabalin [From Lyrica] Allergy Rash/Hives Verified 06/25/20 07:57 propoxyphene HCl Allergy Rash/Hives Verified 06/25/20 07:57 [From Darvon] Sulfa (Sulfonamide Allergy Rash/Hives Verified 06/25/20 07:57 Antibiotics) tramadol Allergy Unknown Verified 06/25/20 07:57 monosodium glutamate [MSG] AdvReac Nausea & Verified 06/25/20 07:57 Vomiting nalbuphine HCl [From Nubain] AdvReac Nausea & Verified 06/25/20 07:57 Vomiting Review of Systems ROS Statement: Those systems with pertinent positive or pertinent negative responses have been documented in the HPI. ROS Other: All systems not noted in ROS Statement are negative. Past Medical History Past Medical History: Diabetes Mellitus, Deep Vein Thrombosis (DVT), Fibromyalgia, Hyperlipidemia, Hypertension, Osteoarthritis (OA), Pneumonia, Renal Disease, Sleep Apnea/CPAP/BIPAP, Vascular Disorder Additional Past Medical History / Comment(s): Pt recently admitted to [facility] On 02/23/20 with complicated UTI/migraine/nausea and vomiting. 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, DVT R calf in 1976, cardiac murmur, occipital neuraligia, balance issues-has narrowing of vessels "in the back of my head", vertigo, varicosities, states rt shoulder torn rotator cuff History of Any Multi-Drug Resistant Organisms: ESBL, MRSA, VRE Date of last positivie culture/infection: 04/22/20 ESBL; 03/10/11 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 MDRO Source:: ESBL URINE; MRSA 4th rt TOE VRE URINE Past Surgical History: Appendectomy, Back Surgery, Bladder Surgery, Breast Surgery, Cholecystectomy, Heart Catheterization, Hysterectomy, Orthopedic Surgery, Tonsillectomy Additional Past Surgical History / Comment(s): Lumbar fusions, bladder suspension, occipital nerve blocks, 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, R wrist/elbow nerve repair, bone removed R shoulder, 4th toe R foot partial amputation, bilateral feet/bunionectomies, R knee arthroscopies, R orbit decompression with ethmoidectomy and eyelid lift, EGD, colonoscopies, cystocopies, lithotripsy/stents, bilateral breast reduction, bilateral cataract removals, parathyroid surgery - April 2019, pain clinic procedures Past Anesthesia/Blood Transfusion Reactions: No Reported Reaction Additional Past Anesthesia/Blood Transfusion Reaction / Comment(s): never recieved blood Past Psychological History: Depression Smoking Status: Never smoker Past Alcohol Use History: None Reported Past Drug Use History: None Reported - Past Family History Father Family Medical History: Coronary Artery Disease (CAD), CVA/TIA, Diabetes Mellit us, Myocardial Infarction ([place]), Pneumonia Additional Family Medical History / Comment(s): Father at the age of 78yrs from [place] and pneumonia. Mother Family Medical History: Cancer Additional Family Medical History / Comment(s): Mother had uterine cancer. She recently at the age of 96yrs old from [employer]. General Exam - General Exam Comments Initial Comments: GENERAL: Patient is well-developed and well-nourished. Patient is nontoxic and well- hydrated and is in mild distress. ENT: Neck is soft and supple. No significant lymphadenopathy is noted. Oropharynx is clear. Moist mucous membranes. Neck has full range of motion without eliciting any pain. EYES: The sclera were anicteric and conjunctiva were pink and moist. Extraocular movements were intact and pupils were equal round and reactive to light. Eyelids were unremarkable. PULMONARY: Unlabored respirations. Good breath sounds bilaterally. No audible rales rhonchi or wheezing was noted. CARDIOVASCULAR: There is a regular rate and rhythm without any murmurs gallops or rubs. ABDOMEN: Soft and nontender with normal bowel sounds. SKIN: Skin is clear with no lesions or rashes and otherwise unremarkable. NEUROLOGIC: Patient is alert and oriented x3. Cranial nerves II through XII are grossly intact. Motor and sensory are also intact. Normal speech, volume and content. Symmetrical smile. MUSCULOSKELETAL: Normal extremities with adequate strength and full range of motion. LYMPHATICS: No significant lymphadenopathy is noted PSYCHIATRIC: Normal psychiatric evaluation. Course Vital Signs 06/25/20 07:20 Temperature 98.8 F Pulse Rate 82 Respiratory 18 Rate Blood Pressure 156/91 O2 Sat by Pulse 97 Oximetry Medical Decision Making - Medical Decision Making Patient no problem ambulating to the bathroom. I started to talk about discharge the patient home she insisted she couldn't go. I spoke with Dr. Chance Rios came over to see the patient and decided to 23 hour admit the patient. - Lab Data Result diagrams: 06/25/20 07:37 06/25/20 07:57 Lab Results 06/25/20 06/25/20 06/25/20 Range/Units 07:37 07:57 08:30 WBC 7.8 (3.8-10.6) k/uL RBC 4.68 (3.80-5.40) m/uL Hgb 13.6 (11.4-16.0) gm/dL Hct 40.4 (34.0-46.0) % MCV 86.3 (80.0-100.0) fL MCH 28.9 (25.0-35.0) pg MCHC 33.5 (31.0-37.0) g/dL RDW 14.8 (11.5-15.5) % Plt Count 183 (150-450) k/uL MPV 7.6 Neutrophils % 72 % Lymphocytes % 18 % Monocytes % 7 % Eosinophils % 2 % Basophils % 1 % Neutrophils # 5.6 (1.3-7.7) k/uL Lymphocytes # 1.4 (1.0-4.8) k/uL Monocytes # 0.5 (0-1.0) k/uL Eosinophils # 0.1 (0-0.7) k/uL Basophils # 0.0 (0-0.2) k/uL Sodium 132 L (137-145) mmol/L Potassium 4.3 (3.5-5.1) mmol/L Chloride 98 (98-107) mmol/L Carbon Dioxide 30 (22-30) mmol/L Anion Gap 4 mmol/L BUN 14 (7-17) mg/dL Creatinine 0.56 (0.52-1.04) mg/dL Est GFR (CKD-EPI)AfAm >90 (>60 ml/min/1.73 sqM) Est GFR (CKD-EPI)NonAf >90 (>60 ml/min/1.73 sqM) Glucose 206 H (74-99) mg/dL Calcium 9.1 (8.4-10.2) mg/dL Total Bilirubin 0.5 (0.2-1.3) mg/dL AST 16 (14-36) U/L ALT 10 (4-34) U/L Alkaline Phosphatase 64 (38-126) U/L Total Protein 5.7 L (6.3-8.2) g/dL Albumin 3.6 (3.5-5.0) g/dL Urine Color Yellow Urine Appearance Clear (Clear) Urine pH 5.5 (5.0-8.0) Ur Specific [place] 1.019 (1.001-1.035) Urine Protein Trace H (Negative) Urine Glucose (UA) 1+ H (Negative) Urine Ketones 3+ H (Negative) Urine Blood Negative (Negative) Urine Nitrite Negative (Negative) Urine Bilirubin Negative (Negative) Urine Urobilinogen <2.0 (<2.0) mg/dL Ur Leukocyte Esterase Negative (Negative) Disposition Clinical Impression: Generalized weakness, History of adrenal insufficiency Disposition: ADMITTED IP TO THIS HOSP Referrals: Andrew Gonsales MD [Primary Care Provider] - 1-2 days Time of Disposition: 09:48
[2020-06-25 08:08] LABS: Basophils % (A) 1 %; Eosinophils # (A) 0.1 k/uL (0-0.7); Eosinophils % (A) 2 %; HCT 40.4 % (34.0-46.0); HGB 13.6 gm/dL (11.4-16.0); Lymphocytes # (A) 1.4 k/uL (1.0-4.8); Lymphocytes % (A) 18 %; MCH 28.9 pg (25.0-35.0); MCHC 33.5 g/dL (31.0-37.0); MCV 86.3 fL (80.0-100.0); Mean Platelet Volume 7.6; Monocytes # (A) 0.5 k/uL (0-1.0); Monocytes % (A) 7 %; Neutrophils # (A) 5.6 k/uL (1.3-7.7); Neutrophils % (A) 72 %; Platelet Count 183 k/uL (150-450); RBC 4.68 m/uL (3.80-5.40); RDW 14.8 % (11.5-15.5); WBC 7.8 k/uL (3.8-10.6)
[2020-06-25 08:23] LABS: ALT 10 U/L (4-34); AST 16 U/L (14-36); African American GFR (CKD) >90 (>60 ml/min/1.73 sqM); Albumin 3.6 g/dL (3.5-5.0); Alkaline Phosphatase 64 U/L (38-126); Anion Gap 4 mmol/L; Blood Urea Nitrogen 14 mg/dL (7-17); Calcium 9.1 mg/dL (8.4-10.2); Carbon Dioxide 30 mmol/L (22-30); Chloride 98 mmol/L (98-107); Glucose 206 mg/dL (74-99); Non-African American GFR(CKD) >90 (>60 ml/min/1.73 sqM); Potassium 4.3 mmol/L (3.5-5.1); Sodium 132 mmol/L (137-145); Total Bilirubin 0.5 mg/dL (0.2-1.3); Total Protein 5.7 g/dL (6.3-8.2)
[2020-06-25 08:46] LABS: Appearance,Urine Clear (Clear); Bilirubin,Urine Negative (Negative); Blood,Urine Negative (Negative); Color,Urine Yellow; Glucose,Urine (UA) 1+ (Negative); Leukocyte Esterase,Urine Negative (Negative); Nitrite,Urine Negative (Negative); PH, Urine 5.5 (5.0-8.0); Protein,Urine Trace (Negative); Specific Gravity,Urine 1.019 (1.001-1.035); Urobilinogen,Urine <2.0 mg/dL (<2.0)
[2020-06-25 09:04] LABS: Ketones,Urine 3+ (Negative)
[2020-06-25] MEDS ORDERED: SODIUM CHLORIDE 0.9% 1,000 ML IV ONE (09:50)
[2020-06-25 11:30] LABS: Glucose,Whole Blood 243 mg/dL (75-99)
[2020-06-25] MEDS ORDERED: BUTALB/APAP/CAFF 50-325-40MG TAB PO PRN (12:11)
[2020-06-25] MEDS: INSULIN ASPART (NovoLOG) 100 UNIT/ML VIAL SQ SCH ×3 (13:20→21:53)
[2020-06-25] MEDS: HYDROCORTISONE SUCCINATE 100 MG/2 ML VIAL IV SCH ×3 (13:21→23:02)
[2020-06-25] MEDS ORDERED: ONDANSETRON 4 MG/2 ML VIAL IVP PRN (14:25)
[2020-06-25] MEDS: GABAPENTIN 100 MG CAP PO SCH ×2 (15:33→21:54)
[2020-06-25] MEDS: CHOLESTYRAMINE (WITH SUGAR) 4 GM PACKET PO SCH ×2 (15:33→17:56)
[2020-06-25 16:37] LABS: Glucose,Whole Blood 234 mg/dL (75-99)
[2020-06-25] MEDS ORDERED: INSULIN ASPART (NovoLOG) 100 UNIT/ML VIAL SQ SCH (17:30)
[2020-06-25] MEDS: METOCLOPRAMIDE 5 MG/ML 2 ML VIAL IVP PRN (17:51)
[2020-06-25] MEDS: HYDROcodone/APAP 10-325MG 1 EACH TAB PO PRN (17:52)
--- NOTE | 2020-06-25 19:59 | P.HPIM ---
History of Present Illness H&P Date: 06/25/20 Chief Complaint: weakness, dizziness Melissa Pena is a 69 yo F with PMH of adrenal insufficiency, recurrent UTI, chronic migraine who presented to the ED complaining of worsening weakness, dizziness and nausea. She states she ran out of her home hydrocortisone for about 2 weeks and tried to contact her manager application but was unable to get a refill. She has become nauseated and unable to walk due to dizziness as well. She states her is recovering from a surgery and she does not feel safe at home. On presentation BP 83/50, labs unremarkable, Cr 0.5 at baseline, UA with 3+ ketones. Review of Systems All systems: negative Constitutional: Reports malaise, Reports weakness, Denies chills, Denies fever Eyes: denies blurred vision, denies pain Ears, nose, mouth and throat: Denies headache, Denies sore throat Cardiovascular: Denies chest pain, Denies shortness of breath Respiratory: Denies cough Gastrointestinal: Denies abdominal pain, Denies diarrhea, Denies nausea, Denies vomiting Genitourinary: Denies dysuria, Denies hematuria Musculoskeletal: Denies myalgias Integumentary: Denies pruritus, Denies rash Neurological: Reports weakness, Denies numbness Psychiatric: Denies anxiety, Denies depression Endocrine: Denies fatigue, Denies weight change Past Medical History Past Medical History: Diabetes Mellitus, Deep Vein Thrombosis (DVT), Fibromyalgia, Hyperlipidemia, Hypertension, Osteoarthritis (OA), Pneumonia, Renal Disease, Sleep Apnea/CPAP/BIPAP, Vascular Disorder Additional Past Medical History / Comment(s): Pt recently admitted to [facility] On 02/23/20 with complicated UTI/migraine/nausea and vomiting. 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, DVT R calf in 1976, cardiac murmur, occipital neuraligia, balance issues-has narrowing of vessels "in the back of my head", vertigo, varicosities, states rt shoulder torn rotator cuff History of Any Multi-Drug Resistant Organisms: ESBL, MRSA, VRE Date of last positivie culture/infection: 04/22/20 ESBL; 03/10/11 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 MDRO Source:: ESBL URINE; MRSA 4th rt TOE VRE URINE Past Surgical History: Appendectomy, Back Surgery, Bladder Surgery, Breast Surgery, Cholecystectomy, Heart Catheterization, Hysterectomy, Orthopedic Surgery, Tonsillectomy Additional Past Surgical History / Comment(s): Lumbar fusions, bladder suspension, occipital nerve blocks, 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, R wrist/elbow nerve repair, bone removed R shoulder, 4th toe R foot partial amputation, bilateral feet/bunionectomies, R knee arthroscopies, R orbit d ecompression with ethmoidectomy and eyelid lift, EGD, colonoscopies, cystocopies, lithotripsy/stents, bilateral breast reduction, bilateral cataract removals, parathyroid surgery - April 2019, pain clinic procedures Past Anesthesia/Blood Transfusion Reactions: No Reported Reaction Additional Past Anesthesia/Blood Transfusion Reaction / Comment(s): never recieved blood Past Psychological History: Depression Additional Psychological History / Comment(s): Pt resides with her spouse. She uses a walker. She normally drives. She has a nebulizer, cpap, bsc, shower chair, bp machine, dexcom monitor system for her bs. She has [facility] home care. Smoking Status: Never smoker Past Alcohol Use History: None Reported Additional Past Alcohol Use History / Comment(s): no alcohol Past Drug Use History: None Reported - Past Family History Father Family Medical History: Coronary Artery Disease (CAD), CVA/TIA, Diabetes Mellitus, Myocardial Infarction (MA), Pneumonia Additional Family Medical History / Comment(s): Father at the age of 78yrs from MA and pneumonia. Mother Family Medical History: Cancer Additional Family Medical History / Comment(s): Mother had uterine cancer. She recently at the age of 96yrs old from [place]. Medications and Allergies Home Medications Medication Instructions Recorded Confirmed Type Cholecalciferol [Vitamin D3 (25 1,000 unit PO DAILY@0700 15/15 06/25/20 History Mcg = 1000 Iu)] Metoprolol Succinate (ER) [Toprol 50 mg PO HS 07/06/17 06/25/20 History XL] Meclizine [Antivert] 25 mg PO TID PRN 11/26/17 06/25/20 History Hydrocortisone [Cortef] 15 mg PO AC-BRKFST 05/18/18 06/25/20 History Hydrocortisone [Cortef] 10 mg PO HS 06/26/18 06/25/20 History Aspirin 81 mg PO DAILY #0 07/02/18 06/25/20 Rx Glucagon Emergency Kit 1 mg IM ONCE PRN 08/12/18 06/25/20 History Ferrous Sulfate [Iron (65 MG 325 mg PO DAILY 10/08/18 06/25/20 History Elemental)] Folic Acid 0.4 mg PO DAILY 10/08/18 06/25/20 History L.acidoph,Paracasei, B.lactis 2 cap PO BID 10/08/18 06/25/20 History [Probiotic] Melatonin 5 mg PO HS PRN 10/08/18 06/25/20 History Multivitamins, Thera Liquid 30 ml PO DAILY 10/08/18 06/25/20 History [Theragran Liquid (formulary)] Potassium 99 mg PO DAILY 10/08/18 06/25/20 History Thiamine [Vitamin B-1] 100 mg PO DAILY 10/08/18 06/25/20 History Vitamin B-Complex Drops 1 ml PO BID 10/08/18 06/25/20 History Atorvastatin [Lipitor] 40 mg PO HS #30 tab 11/16/18 06/25/20 Rx Venlafaxine HCl [Effexor XR] 75 mg PO DAILY 11/08/19 06/25/20 History Clopidogrel [Plavix] 75 mg PO DAILY 12/06/19 06/25/20 History Magnesium Oxide [Mag-Ox] 400 mg PO DAILY 12/06/19 06/25/20 History Cholestyramine (with Sugar) 4 gm PO TID BETWEEN MEALS #30 02/19/20 06/25/20 Rx [Questran Packet] packet INSULIN ASPART (NovoLOG) [NovoLOG 14 unit SQ AC-BRKFST vial 02/25/20 06/25/20 Rx (formulary)] INSULIN ASPART (NovoLOG) [NovoLOG 18 unit SQ AC-LUNCH vial 02/25/20 06/25/20 Rx (formulary)] INSULIN ASPART (NovoLOG) [NovoLOG 24 unit SQ AC-SUPPER vial 02/25/20 06/25/20 Rx (formulary)] Butalb/APAP/Caff 50-325-40Mg 1 tab PO QID PRN #12 tab 02/26/20 06/25/20 Rx [Fioricet 50-325-40] Gabapentin [Neurontin] 100 mg PO TID #9 cap 03/24/20 06/25/20 Rx HYDROcodone/APAP 10-325MG [[place] 1 tab PO TID PRN 04/16/20 06/25/20 History 10-325] Hydrocortisone [Cortef] 15 mg PO W/LUNCH 04/16/20 06/25/20 History Cephalexin [Keflex] 250 mg PO HS #30 cap 04/23/20 06/25/20 Rx C,E,Zinc,Copper 11/Zsjqa3p/Lut 1 cap PO DAILY 06/25/20 06/25/20 History [Ocuvite Adult 50 Plus Softgel] Cranberry Fruit Extract [Cranberry] 200 mg PO BID 06/25/20 06/25/20 History Cyanocobalamin (Vitamin B-12) 1,000 mcg PO DAILY 06/25/20 06/25/20 History [Vitamin B-12] Insulin Glargine [Lantus] 26 unit SQ HS@2200 06/25/20 06/25/20 History Ondansetron HCl [Zofran] 4 mg PO Q6HR PRN 06/25/20 06/25/20 History Spironolactone 50 mg PO DAILY 06/25/20 06/25/20 History Vitamin E 400 unit PO DAILY 06/25/20 06/25/20 History lisinopriL 40 mg PO DAILY 06/25/20 06/25/20 History Allergies Allergy/AdvReac Type Severity Reaction Status Date / Time butorphanol tartrate Allergy BLISTERS Verified 06/25/20 11:08 [From Stadol] IN MOUTH ceftriaxone [From Rocephin] Allergy Unknown Verified 06/25/20 11:08 clarithromycin [From Biaxin] Allergy Rash/Hives Verified 06/25/20 11:08 codeine Allergy Rash/Hives Verified 06/25/20 11:08 ergotamine tartrate Allergy Unknown Verified 06/25/20 11:08 [From Cafergot] erythromycin base Allergy RASH, GI Verified 06/25/20 11:08 [From E-Mycin] SYMPTOMS ketorolac tromethamine Allergy Rash/Hives Verified 06/25/20 11:08 [From Toradol] liraglutide [From Victoza] Allergy Rash/Hives Verified 06/25/20 11:08 morphine Allergy Rash/Hives Verified 06/25/20 11:08 Penicillins Allergy Rash/Hives Verified 06/25/20 11:08 pentazocine lactate Allergy SEVERE Verified 06/25/20 11:08 [From Talwin] BLISTERS IN MOUTH pregabalin [From Lyrica] Allergy Rash/Hives Verified 06/25/20 11:08 propoxyphene HCl Allergy Rash/Hives Verified 06/25/20 11:08 [From Darvon] Sulfa (Sulfonamide Allergy Rash/Hives Verified 06/25/20 11:08 Antibiotics) tramadol Allergy Unknown Verified 06/25/20 11:08 monosodium glutamate [MSG] AdvReac Nausea & Verified 06/25/20 11:08 Vomiting nalbuphine HCl [From Nubain] AdvReac Nausea & Verified 06/25/20 11:08 Vomiting Physical Exam Vitals: Vital Signs Temp Pulse Pulse Resp BP BP Pulse Ox 06/25/20 14:00 98.5 F 98 18 140/81 93 L 06/25/20 13:57 18 06/25/20 10:43 98.9 F 110 H 18 151/84 94 L 06/25/20 09:55 98 18 146/94 95 06/25/20 07:20 98.8 F 82 18 156/91 97 Intake and Output 06/25/20 06/25/20 06/25/20 06:59 14:59 22:59 Intake Total 300 Balance 300 Intake: IV 300 Sodium Chloride 0.9% 1, 300 000 ml @ 100 mls/hr IV . Q10H ONE Rx#:[id number] Other: Voiding Method Toilet # Voids 1 2 # Bowel Movements 1 Weight 61.689 kg General: well nourished, well developed, NAD. Vitals reviewed Eyes: PERRL, EOMI, conjunctiva normal HENT: normocephalic, mucus membranes moist Neck: supple, no JVD Lungs: normal respiratory effort, no wheezes or rales CV: Regular rate and rhythm, no murmur. Peripheral pulses 2+ Abdomen: soft, nondistended, no organomegaly Lymph: no cervical or axillary LAD Skin: warm and dry. Neuro: A&Ox3, normal mood and affect. Str 5/5 ginette LE Results CBC & Chem 7: 06/25/20 07:37 06/25/20 07:57 Labs: Abnormal Lab Results - Last 24 Hours (Table) 06/25/20 06/25/20 06/25/20 Range/Units 07:57 08:30 11:26 Sodium 132 L (137-145) mmol/L Glucose 206 H (74-99) mg/dL POC Glucose (mg/dL) 243 H (75-99) mg/dL Total Protein 5.7 L (6.3-8.2) g/dL Urine Protein Trace H (Negative) Urine Glucose (UA) 1+ H (Negative) Urine Ketones 3+ H (Negative) 06/25/20 Range/Units 16:35 Sodium (137-145) mmol/L Glucose (74-99) mg/dL POC Glucose (mg/dL) 234 H (75-99) mg/dL Total Protein (6.3-8.2) g/dL Urine Protein (Negative) Urine Glucose (UA) (Negative) Urine Ketones (Negative) Thrombosis Risk Factor Assmnt - Choose All That Apply Any of the Below Risk Factors Present?: Yes Each Factor Represents 1 point: Obesity (BMI >25) Other Risk Factors: Yes Each Risk Factor Represents 2 Points: Age 61-74 years Each Risk Factor Represents 3 Points: History of DVT/PE Other congenital or acquired thrombophilia - If yes, enter type in comment: No Thrombosis Risk Factor Assessment Total Risk Factor Score: 6 Thrombosis Risk Factor Assessment Level: High Risk Assessment and Plan (1) Adrenal crisis Current Visit: Yes Status: Acute Code(s): E27.2 - ADDISONIAN CRISIS SNOMED Code(s): 231105681 (2) Recurrent UTI Current Visit: Yes Status: Acute Code(s): N39.0 - URINARY TRACT INFECTION, SITE NOT SPECIFIED SNOMED Code(s): 767195166 (3) Adrenal insufficiency Current Visit: No Status: Chronic Code(s): E27.40 - UNSPECIFIED ADRENOCORTICAL INSUFFICIENCY SNOMED Code(s): 447335758 (4) DM type 2 (diabetes mellitus, type 2) Current Visit: No Status: Chronic Code(s): E11.9 - TYPE 2 DIABETES MELLITUS WITHOUT COMPLICATIONS SNOMED Code(s): 29523544 Plan: 1. Adrenal crisis. Admit to observation, start IV solucortef 2. Chronic pain syndrome. Continue home [place] 3. Migraine. Continue fioricet 4. HTN. CKD3. continue lisinopril 5. T2DM. Continue with levemir and sliding scale insulin
[2020-06-25] MEDS ORDERED: ATORVASTATIN 40 MG TAB PO SCH (21:00)
[2020-06-25] MEDS ORDERED: CEPHALEXIN 250 MG CAP PO SCH (21:00)
[2020-06-25] MEDS ORDERED: METOPROLOL SUCCINATE (ER) 50 MG TAB.ER.24H PO SCH (21:00)
[2020-06-25 21:46] LABS: Glucose,Whole Blood 195 mg/dL (75-99)
[2020-06-25] MEDS ORDERED: INSULIN DETEMIR (LEVEMIR) 100 UNIT/ML SYR SQ SCH (22:00)
[2020-06-26] MEDS: HYDROCORTISONE SUCCINATE 100 MG/2 ML VIAL IV SCH ×2 (05:20→12:48)
[2020-06-26] MEDS: HYDROcodone/APAP 10-325MG 1 EACH TAB PO PRN ×2 (05:24→12:47)
[2020-06-26 06:29] LABS: Basophils % (A) 0 %; Eosinophils # (A) 0.1 k/uL (0-0.7); Eosinophils % (A) 1 %; HGB 13.8 gm/dL (11.4-16.0); Lymphocytes # (A) 1.3 k/uL (1.0-4.8); Lymphocytes % (A) 21 %; MCH 28.5 pg (25.0-35.0); MCHC 32.9 g/dL (31.0-37.0); MCV 86.6 fL (80.0-100.0); Mean Platelet Volume 7.6; Monocytes # (A) 0.5 k/uL (0-1.0); Monocytes % (A) 7 %; Neutrophils # (A) 4.4 k/uL (1.3-7.7); Neutrophils % (A) 69 %; Platelet Count 223 k/uL (150-450); RBC 4.85 m/uL (3.80-5.40); RDW 14.8 % (11.5-15.5); WBC 6.4 k/uL (3.8-10.6)
[2020-06-26] MEDS ORDERED: INSULIN ASPART (NovoLOG) 100 UNIT/ML VIAL SQ SCH ×2 (07:30→12:30)
[2020-06-26] MEDS ORDERED: NON FORMULARY DRUG (Hydrocortisone [Cortef] 5 MG Tablet) PO SCH (07:30)
[2020-06-26 07:32] LABS: Glucose,Whole Blood 223 mg/dL (75-99)
[2020-06-26 07:58] VITALS: RESP 18
[2020-06-26] MEDS: GABAPENTIN 100 MG CAP PO SCH (08:18)
[2020-06-26] MEDS: INSULIN ASPART (NovoLOG) 100 UNIT/ML VIAL SQ SCH ×2 (08:23→12:44)
[2020-06-26] MEDS: CHOLESTYRAMINE (WITH SUGAR) 4 GM PACKET PO SCH ×2 (08:24→12:45)
[2020-06-26] MEDS: METOCLOPRAMIDE 5 MG/ML 2 ML VIAL IVP PRN (08:51)
[2020-06-26] MEDS ORDERED: MAGNESIUM OXIDE 400 MG TAB PO SCH (09:00)
[2020-06-26] MEDS ORDERED: CLOPIDOGREL 75 MG TAB PO SCH (09:00)
[2020-06-26] MEDS ORDERED: SPIRONOLACTONE 25 MG TAB PO SCH (09:00)
[2020-06-26] MEDS ORDERED: lisinopriL 20 MG TAB PO SCH (09:00)
[2020-06-26] MEDS ORDERED: CYANOCOBALAMIN 500 MCG TAB PO SCH (09:00)
[2020-06-26] MEDS ORDERED: ASPIRIN 81 MG PO SCH (09:00)
[2020-06-26] MEDS ORDERED: HYDROCORTISONE SUCCINATE 100 MG/2 ML VIAL IV STA (09:27)
[2020-06-26 09:58] LABS: African American GFR (CKD) 101.7 (60.0-200.0); Anion Gap 13.8 mmol/L (4.00-12.00); Calcium 9.2 mg/dL (8.7-10.3); Carbon Dioxide 24.2 mmol/L (21.6-31.8); Non-African American GFR(CKD) 87.8 (60.0-200.0); Potassium 4.5 mmol/L (3.5-5.5)
[2020-06-26 11:32] LABS: Glucose,Whole Blood 205 mg/dL (75-99)
[2020-06-26 11:45] VITALS: BMI 26.5
--- NOTE | 2020-06-26 12:34 | P.DS ---
Providers Date of admission: 06/25/20 09:51 Expected date of discharge: 06/26/20 Attending physician: Andrew Gonsales MD Primary care physician: Andrew Gonsales MD Hospital Course: Final Diagnoses: (1) Adrenal crisis, ran out of cortef Current Visit: Yes Status: Acute Code(s): E27.2 - ADDISONIAN CRISIS SNOMED Code(s): 663120605 (2) History of Recurrent UTIs Current Visit: Yes Status: Acute Code(s): N39.0 - URINARY TRACT INFECTION, SITE NOT SPECIFIED SNOMED Code(s): 413204498 (3) Adrenal insufficiency Current Visit: No Status: Chronic Code(s): E27.40 - UNSPECIFIED ADRENOCORTICAL INSUFFICIENCY SNOMED Code(s): 013407357 (4) DM type 2 (diabetes mellitus, type 2) Current Visit: No Status: Chronic Code(s): E11.9 - TYPE 2 DIABETES MELLITUS WITHOUT COMPLICATIONS SNOMED Code(s): 66384653 (5) history of migraines (6) hypertension (7) CKD III Hospital course:Melissa Pena is a 69 yo F with PMH of adrenal insufficiency, recurrent UTI, chronic migraine who presented to the ED complaining of worsening weakness, dizziness and nausea. She states she ran out of her home hydrocortisone for about 2 weeks and tried to contact her supervisor drying and winding but was unable to get a refill. She has become nauseated and unable to walk due to dizziness as well. She states her is recovering from a surgery and she does not feel safe at home. On presentation BP 83/50, labs unremarkable, Cr 0.5 at baseline, UA with 3+ ketones. Maintained on IV Solu-Cortef, significant clinical improvement. Patient ambulated in the hallway with physical therapy, tolerated exertion well. Reports minimal lower extremity fatigue. Denies lightheadedness dizziness or focal deficits. Denies chest pain, palpitations or shortness of breath. Patient will be discharged home today in a stable condition with guarded prognosis. Hydrocortisone prescriptions escribed. Recommend home care with physical therapy. The impression and plan of care has been dictated as directed. : I performed a history and examination of this patient, discussed the same with the dictator. I agree with the dictator's note ,documented as a scribe. Any additional findings or plans will be noted. Patient Condition at Discharge: Stable Plan - Discharge Summary New Discharge Prescriptions: Continue Cholecalciferol [Vitamin D3 (25 Mcg = 1000 Iu)] 1,000 unit PO DAILY@0700 Metoprolol Succinate (ER) [Toprol XL] 50 mg PO HS Meclizine [Antivert] 25 mg PO TID PRN PRN Reason: Vertigo Aspirin 81 mg PO DAILY #0 Glucagon Emergency Kit 1 mg IM ONCE PRN PRN Reason: Hypoglycemia Ferrous Sulfate [Iron (65 MG Elemental)] 325 mg PO DAILY Vitamin B-Complex Drops 1 ml PO BID Thiamine [Vitamin B-1] 100 mg PO DAILY Folic Acid 0.4 mg PO DAILY Multivitamins, Thera Liquid [Theragran Liquid (formulary)] 30 ml PO DAILY L.acidoph,Paracasei, B.lactis [Probiotic] 2 cap PO BID Melatonin 5 mg PO HS PRN PRN Reason: Insomnia Potassium 99 mg PO DAILY Atorvastatin [Lipitor] 40 mg PO HS #30 tab Venlafaxine HCl [Effexor XR] 75 mg PO DAILY Magnesium Oxide [Mag-Ox] 400 mg PO DAILY Clopidogrel [Plavix] 75 mg PO DAILY Cholestyramine (with Sugar) [Questran Packet] 4 gm PO TID BETWEEN MEALS #30 packet INSULIN ASPART (NovoLOG) [NovoLOG (formulary)] 14 unit SQ AC-BRKFST vial INSULIN ASPART (NovoLOG) [NovoLOG (formulary)] 24 unit SQ AC-SUPPER vial INSULIN ASPART (NovoLOG) [NovoLOG (formulary)] 18 unit SQ AC-LUNCH vial Butalb/APAP/Caff 50-325-40Mg [Fioricet 50-325-40] 1 tab PO QID PRN #12 tab PRN Reason: Migraine Headache Gabapentin [Neurontin] 100 mg PO TID #9 cap HYDROcodone/APAP 10-325MG [[place] 10-325] 1 tab PO TID PRN PRN Reason: Pain Cephalexin [Keflex] 250 mg PO HS #30 cap Cranberry Fruit Extract [Cranberry] 200 mg PO BID Insulin Glargine [Lantus] 26 unit SQ HS@2200 lisinopriL 40 mg PO DAILY Spironolactone 50 mg PO DAILY C,E,Zinc,Copper 11/Awnbq5z/Lut [Ocuvite Adult 50 Plus Softgel] 1 cap PO DAILY Cyanocobalamin (Vitamin B-12) [Vitamin B-12] 1,000 mcg PO DAILY Vitamin E 400 unit PO DAILY Ondansetron HCl [Zofran] 4 mg PO Q6HR PRN PRN Reason: Nausea Hydrocortisone [Cortef] 15 mg PO AC-BRKFST #90 tab Hydrocortisone [Cortef] 10 mg PO HS #60 tab Hydrocortisone [Cortef] 15 mg PO W/LUNCH #90 tab Discharge Medication List Cholecalciferol [Vitamin D3 (25 Mcg = 1000 Iu)] 1,000 unit PO DAILY@0700 12/01/14 [History] Metoprolol Succinate (ER) [Toprol XL] 50 mg PO HS 07/06/17 [History] Meclizine [Antivert] 25 mg PO TID PRN 11/26/17 [History] Aspirin 81 mg PO DAILY #0 07/02/18 [Rx] Glucagon Emergency Kit 1 mg IM ONCE PRN 08/12/18 [History] Ferrous Sulfate [Iron (65 MG Elemental)] 325 mg PO DAILY 10/08/18 [History] Folic Acid 0.4 mg PO DAILY 10/08/18 [History] L.acidoph,Paracasei, B.lactis [Probiotic] 2 cap PO BID 10/08/18 [History] Melatonin 5 mg PO HS PRN 10/08/18 [History] Multivitamins, Thera Liquid [Theragran Liquid (formulary)] 30 ml PO DAILY 10/08/18 [History] Potassium 99 mg PO DAILY 10/08/18 [History] Thiamine [Vitamin B-1] 100 mg PO DAILY 10/08/18 [History] Vitamin B-Complex Drops 1 ml PO BID 10/08/18 [History] Atorvastatin [Lipitor] 40 mg PO HS #30 tab 11/16/18 [Rx] Venlafaxine HCl [Effexor XR] 75 mg PO DAILY 11/08/19 [History] Clopidogrel [Plavix] 75 mg PO DAILY 12/06/19 [History] Magnesium Oxide [Mag-Ox] 400 mg PO DAILY 12/06/19 [History] Cholestyramine (with Sugar) [Questran Packet] 4 gm PO TID BETWEEN MEALS #30 packet 02/19/20 [Rx] INSULIN ASPART (NovoLOG) [NovoLOG (formulary)] 14 unit SQ -KFST vial 02/25/20 [Rx] INSULIN ASPART (NovoLOG) [NovoLOG (formulary)] 18 unit SQ AC-LUNCH vial 02/25/20 [Rx] INSULIN ASPART (NovoLOG) [NovoLOG (formulary)] 24 unit SQ AC-SUPPER vial 02/25/20 [Rx] Butalb/APAP/Caff 50-325-40Mg [Fioricet 50-325-40] 1 tab PO QID PRN #12 tab 02/26/20 [Rx] Gabapentin [Neurontin] 100 mg PO TID #9 cap 03/24/20 [Rx] HYDROcodone/APAP 10-325MG [[place] 10-325] 1 tab PO TID PRN 04/16/20 [History] Cephalexin [Keflex] 250 mg PO HS #30 cap 04/23/20 [Rx] C,E,Zinc,Copper 11/Vwbip0e/Lut [Ocuvite Adult 50 Plus Softgel] 1 cap PO DAILY 06/25/20 [History] Cranberry Fruit Extract [Cranberry] 200 mg PO BID 06/25/20 [History] Cyanocobalamin (Vitamin B-12) [Vitamin B-12] 1,000 mcg PO DAILY 06/25/20 [History] Insulin Glargine [Lantus] 26 unit SQ HS@2200 06/25/20 [History] Ondansetron HCl [Zofran] 4 mg PO Q6HR PRN 06/25/20 [History] Spironolactone 50 mg PO DAILY 06/25/20 [History] Vitamin E 400 unit PO DAILY 06/25/20 [History] lisinopriL 40 mg PO DAILY 06/25/20 [History] Hydrocortisone [Cortef] 10 mg PO HS #60 tab 06/26/20 [Rx] Hydrocortisone [Cortef] 15 mg PO AC-BRKFST #90 tab 06/26/20 [Rx] Hydrocortisone [Cortef] 15 mg PO W/LUNCH #90 tab 06/26/20 [Rx] Follow up Appointment(s)/Referral(s): Andrew Gonsales MD [Primary Care Provider] - 07/06/20 4:15 pm ([facility]) [facility], [NON-STAFF] - 1-2 Days Patient Instructions/Handouts: Hydrocortisone (By mouth), Weakness (DC) Activity/Diet/Wound Care/Special Instructions: Home care with PT Discharge Disposition: HOME WITH HOME HEALTH SERVICES
[2020-06-26 15:54] VITALS: BP 160/69; PULSE 84; TEMP 98.7
== END 2020-06-26 15:35 | disposition home health service (06) ==
LOC: EC 07:19 → 5NMEDONC 09:51
PROVIDERS: ADMIT Family Medicine; ATTEND Family Medicine
DX: E27.2 Addisonian crisis (principal); N39.0 Urinary tract infection, site not specified; E27.40 Unspecified adrenocortical insufficiency; E11.42 Type 2 diabetes mellitus with diabetic polyneuropathy; I12.9 Hypertensive chronic kidney disease with stage 1 through stage 4 chronic kidney disease, or unspecified chronic kidney disease; E11.22 Type 2 diabetes mellitus with diabetic chronic kidney disease; N18.30 Chronic kidney disease, stage 3 unspecified; G43.909 Migraine, unspecified, not intractable, without status migrainosus; I10 Essential (primary) hypertension; M79.7 Fibromyalgia; E78.5 Hyperlipidemia, unspecified; M19.90 Unspecified osteoarthritis, unspecified site; J42 Unspecified chronic bronchitis; G47.33 Obstructive sleep apnea (adult) (pediatric); M89.49 Other hypertrophic osteoarthropathy, multiple sites; M54.81 Occipital neuralgia; I83.90 Asymptomatic varicose veins of unspecified lower extremity; M75.101 Unspecified rotator cuff tear or rupture of right shoulder, not specified as traumatic; F32.9 Major depressive disorder, single episode, unspecified; T38.0X6A Underdosing of glucocorticoids and synthetic analogues, initial encounter; E66.9 Obesity, unspecified; G89.4 Chronic pain syndrome; Z87.440 Personal history of urinary (tract) infections; Z86.39 Personal history of other endocrine, nutritional and metabolic disease; Z79.899 Other long term (current) drug therapy; Z79.52 Long term (current) use of systemic steroids; Z79.02 Long term (current) use of antithrombotics/antiplatelets; Z79.4 Long term (current) use of insulin; Z88.5 Allergy status to narcotic agent; Z88.1 Allergy status to other antibiotic agents; Z88.8 Allergy status to other drugs, medicaments and biological substances; Z88.0 Allergy status to penicillin; Z88.2 Allergy status to sulfonamides; Z91.02 Food additives allergy status; Z86.718 Personal history of other venous thrombosis and embolism; Z87.01 Personal history of pneumonia (recurrent); Z99.89 Dependence on other enabling machines and devices; Z86.19 Personal history of other infectious and parasitic diseases; Z87.448 Personal history of other diseases of urinary system; Z87.442 Personal history of urinary calculi; Z87.81 Personal history of (healed) traumatic fracture; Z89.421 Acquired absence of other right toe(s); Z87.2 Personal history of diseases of the skin and subcutaneous tissue; Z86.14 Personal history of Methicillin resistant Staphylococcus aureus infection; Z90.49 Acquired absence of other specified parts of digestive tract; Z98.890 Other specified postprocedural states; Z90.710 Acquired absence of both cervix and uterus; Z90.89 Acquired absence of other organs; Z98.1 Arthrodesis status; Z87.39 Personal history of other diseases of the musculoskeletal system and connective tissue; Z86.69 Personal history of other diseases of the nervous system and sense organs; Z96.89 Presence of other specified functional implants; Z98.41 Cataract extraction status, right eye; Z98.42 Cataract extraction status, left eye; Z68.26 Body mass index [BMI] 26.0-26.9, adult; Z82.49 Family history of ischemic heart disease and other diseases of the circulatory system; Z82.3 Family history of stroke; Z83.3 Family history of diabetes mellitus; Z82.5 Family history of asthma and other chronic lower respiratory diseases; Z80.49 Family history of malignant neoplasm of other genital organs; Z83.1 Family history of other infectious and parasitic diseases
CPT/HCPCS: 96376 ×2; 96361 ×2; 96375 ×2; 96374; 99285; 36415; 97162; 97165; 80053; 80048; 85025 ×2; 81003; G0378 ×2; J2765 ×2; J1720 ×2; J2405; J1170

== ENCOUNTER → 2020-07-29 | Outpatient (CLI) | payer MEDICARE, BC ==
[2020-07-29 14:45] LABS: Albumin 4.6 g/dL (3.80-4.90); Calcium 9.5 mg/dL (8.7-10.3); Magnesium 1.8 mg/dL (1.5-2.4); Phosphorus 3.6 mg/dL (2.4-5.1)
[2020-07-29 15:18] LABS: Creatinine 24 Hour,Urine 931.5 mg/24hr (800.0-1800.0)
[2020-07-29 16:53] LABS: DHEA Sulfate <3.0 ug/dL (26.0-430.0)
[2020-07-30 10:23] LABS: Total Protein 24 Hour,Urine 135 mg/24hr (42.0-225.0); Total Volume 24 Hour,Urine 1350 mls (250-2400)
[2020-07-30 15:03] LABS: Cortisol, Urine Free by LC-MS 85.9 ug/L
[2020-07-31 06:27] LABS: ACTH <5.00 pg/mL (0.00-45.99)
[2020-07-31 20:05] LABS: Alkaline Phosphatase, Bone Sp 10.2 ug/L (5.6 - 29.0)
== END | disposition home or self-care (01) ==
LOC: LABWHC1 08:24
PROVIDERS: ATTEND Internal Medicine Endocrinology, Diabetes & Metabolism
DX: E11.65 Type 2 diabetes mellitus with hyperglycemia (principal); E11.21 Type 2 diabetes mellitus with diabetic nephropathy; E87.8 Other disorders of electrolyte and fluid balance, not elsewhere classified; E27.49 Other adrenocortical insufficiency
CPT/HCPCS: 36415; 81050; 82024; 82040; 82306; 82310; 82523; 82530; 82533; 82575; 82627; 83735; 84075; 84100; 84156; 84244

== ENCOUNTER → 2020-10-21 | Outpatient (CLI) | payer MEDICARE, BC ==
--- NOTE | 2020-10-22 13:13 | MM ---
Reason for exam: screening (asymptomatic). Last mammogram was performed 1 year and 4 months ago. History: Patient is postmenopausal. Family history of breast cancer in 2 paternal cousins at age 60. Reductions of both breasts, September 2009. Took estrogen for 30 years beginning at age 27. Physical Findings: A clinical breast exam by your physician is recommended on an annual basis and results should be correlated with mammographic findings. MG 3D Screening Mammo W/Cad Bilateral CC and MLO view(s) were taken. Prior study comparison: June 27, 2019, bilateral MG 3d screening mammo w/cad. April 05, 2018, bilateral MG 3d screening mammo w/cad. There are scattered fibroglandular densities. There are benign appearing round dystrophic calcifications bilaterally. There is no discrete abnormality. ASSESSMENT: Benign, BI-RAD 2 RECOMMENDATION: Routine screening mammogram of both breasts in 1 year.
== END | disposition home or self-care (01) ==
LOC: RADMAMWWP 15:22
PROVIDERS: ATTEND Family Medicine
DX: Z12.31 Encounter for screening mammogram for malignant neoplasm of breast (principal); Z78.0 Asymptomatic menopausal state; Z80.3 Family history of malignant neoplasm of breast
CPT/HCPCS: 77063; 77067

== ENCOUNTER → 2020-10-26 | Outpatient (CLI) | payer MEDICARE, BC ==
--- NOTE | 2020-10-26 10:20 | BD ---
EXAMINATION TYPE: Axial Bone Density DATE OF EXAM: 10/26/2020 COMPARISON: 10/18/2018 CLINICAL HISTORY: Height: 59 IN Weight: 156 LBS FRAX RISK QUESTIONS: Glucocorticoids (More than 3mos): PT TAKES CORTEF FOR ADRENAL INSUFFICIENCY. PT STATES IT IS IN THE STEROID FAMILY. TOTAL OF 30 MG/ DAY. PT HAS BEEN TAKING FOR 10+ YEARS (Ex: prednisone, prednisolone, methylprednisolone, dexamethasone, and hydrocortisone). History of Fracture in Adulthood: PT HAD PELVIS FX AGE 55. NOT HIPS Secondary Osteoporosis: 3. Menopause before 45: TOTAL HYST AGE 27 RISK FACTORS HISTORY OF: Surgery to Spine: L3-S1 When: 2011 Family History of Osteoporosis: MOTHER Active: LIMITED Diet low in dairy products/other sources of calcium: YES Postmenopausal woman: TOTAL HYST AGE 27 Take estrogen and/or progesterone medications: NOT NOW How long: TOOK FOR 3 YEARS Lost more than 2 inches in height since high school: YES 3" Adrenal Insufficiency: YES MEDICATIONS: Prednisone or other steroids: CORTEF 30 MG/ DAY FOR ADRENAL INSUFFICIENCY How Lon+ YEARS Additional Medications: CORTEF 30 MG/DAY, PROTONIX, KEFLEX, LOPRESSOR, LANTUS, LISINOPRIL, NOVOLOG, E FFEXOR, LIPITOR, LOW DOSE ASPIRIN, ALDACTONE,GABAPENTIN, FIORICET, ANTIVERT, NORCO, PHENERGAN, ZOFRAN , EYE DROPS, NYSTATIN CREAM, MELATONIN, CRANBERRY, PROBIOTIC, B COMPLEX DROPS, B1, FOLIC ACID, IRON, POTASSIUM, MAGNESIUM, VIT D, OCUVITE, VIT E, VIT B12 EXAM MEASUREMENTS: Bone mineral densitometry was performed using the [email or web address] System. Bone mineral density as measured about the Lumbar spine is: Bone mineral density about the R hip (g/cm2): 0.801 Bone mineral density about the L hip (g/cm2): 0.772 T Score values are as follows: -----R Neck: -1.7 -----L Neck: -1.9 -----R Total: -0.8 -----L Total: -1.0 Bone mineral density has: Increased 0.1% since study of: 10/18/2018 Bone mineral density about the L Wrist (g/cm2): 0.645 T Score values are as follows: -----Dist. R+U: -1.6 -----Prox. R+U: 0.2 -----Radius total: -0.5 Bone mineral density has: Decreased -0.2% since study of: 10/18/2018 IMPRESSION: Osteopenia (T Score between -2.5 and -1). There is slightly increased risk of fracture and the patient may be considered for treatment. Re-Screen 2-5 years. NOTE: T-SCORE=SD OF THE YOUNG ADULT MEAN.
== END | disposition home or self-care (01) ==
LOC: RADBDWWP 09:03
PROVIDERS: ATTEND Internal Medicine Endocrinology, Diabetes & Metabolism
DX: M85.80 Other specified disorders of bone density and structure, unspecified site (principal)
CPT/HCPCS: 77080

== ENCOUNTER 2020-11-25 18:35 | Emergency (ER) | payer MEDICARE, BC ==
[2020-11-25] MEDS ORDERED: SODIUM CHLORIDE 0.9% 500 ML 500 ML IV ONE (19:16)
[2020-11-25] MEDS ORDERED: ONDANSETRON 4 MG/2 ML VIAL IVP STA (19:16)
[2020-11-25] MEDS ORDERED: diphenhydrAMINE 50 MG/ML 1 ML VIAL IVP STA (19:18)
[2020-11-25] MEDS ORDERED: HYDROmorphone 0.5 MG/0.5 ML SYRINGE IVP STA ×3 (19:18→20:37)
--- NOTE | 2020-11-25 19:41 | ED ---
General Adult HPI - General Chief complaint: Headache Stated complaint: UTI, headache Time Seen by Provider: 11/25/20 18:58 Source: patient, family Mode of arrival: wheelchair Limitations: no limitations - History of Present Illness Initial comments: 70 year-old female patient presents to the emergency department for evaluation of dysuria and headache. Patient states that she completed a 10-day course of Levaquin 750mg on Monday for urinary tract infection. States she continues to have dysuria, suprapubic pressure, and right flank pain. States she has had headache since yesterday. Has history of occipital neuralgia and symptoms are similar. States the pain is posterior. Reports light sensitivity. Reports nausea and two episodes of vomiting today. Denies any fevers or chills. Denies constipation or diarrhea. Denies numbness, tingling, weakness or extremities. Patient denies any recent rash, cough, shortness of breath, chest pain, diarrhea, constipation, back pain, dizziness, weakness, or any other complaints. - Related Data Home Medications Medication Instructions Recorded Confirmed Cholecalciferol [Vitamin D3 (25 1,000 unit PO DAILY@0700 12/01/14 06/25/20 Mcg = 1000 Iu)] Metoprolol Succinate (ER) [Toprol 50 mg PO HS 07/06/17 06/25/20 XL] Meclizine [Antivert] 25 mg PO TID PRN 11/26/17 06/25/20 Glucagon Emergency Kit 1 mg IM ONCE PRN 08/12/18 06/25/20 Ferrous Sulfate [Iron (65 MG 325 mg PO DAILY 10/08/18 06/25/20 Elemental)] Folic Acid 0.4 mg PO DAILY 10/08/18 06/25/20 L.acidoph,Paracasei, B.lactis 2 cap PO BID 10/08/18 06/25/20 [Probiotic] Melatonin 5 mg PO HS PRN 10/08/18 06/25/20 Multivitamins, Thera Liquid 30 ml PO DAILY 10/08/18 06/25/20 [Theragran Liquid (formulary)] Potassium 99 mg PO DAILY 10/08/18 06/25/20 Thiamine [Vitamin B-1] 100 mg PO DAILY 10/08/18 06/25/20 Vitamin B-Complex Drops 1 ml PO BID 10/08/18 06/25/20 Venlafaxine HCl [Effexor XR] 75 mg PO DAILY 11/08/19 06/25/20 Clopidogrel [Plavix] 75 mg PO DAILY 12/06/19 06/25/20 Magnesium Oxide [Mag-Ox] 400 mg PO DAILY 12/06/19 06/25/20 HYDROcodone/APAP 10-325MG [[place] 1 tab PO TID PRN 04/16/20 06/25/20 10-325] C,E,Zinc,Copper 11/Cfido4x/Lut 1 cap PO DAILY 06/25/20 06/25/20 [Ocuvite Adult 50 Plus Softgel] Cranberry Fruit Extract [Cranberry] 200 mg PO BID 06/25/20 06/25/20 Cyanocobalamin (Vitamin B-12) 1,000 mcg PO DAILY 06/25/20 06/25/20 [Vitamin B-12] Insulin Glargine [Lantus] 26 unit SQ HS@2200 06/25/20 06/25/20 Ondansetron HCl [Zofran] 4 mg PO Q6HR PRN 06/25/20 06/25/20 Spironolactone 50 mg PO DAILY 06/25/20 06/25/20 Vitamin E 400 unit PO DAILY 06/25/20 06/25/20 lisinopriL 40 mg PO DAILY 06/25/20 06/25/20 Previous Rx's Medication Instructions Recorded Aspirin 81 mg PO DAILY #0 07/02/18 Atorvastatin [Lipitor] 40 mg PO HS #30 tab 11/16/18 Cholestyramine (with Sugar) 4 gm PO TID BETWEEN MEALS #30 02/19/20 [Questran Packet] packet INSULIN ASPART (NovoLOG) [NovoLOG 14 unit SQ AC-BRKFST vial 02/25/20 (formulary)] INSULIN ASPART (NovoLOG) [NovoLOG 18 unit SQ AC-LUNCH vial 02/25/20 (formulary)] INSULIN ASPART (NovoLOG) [NovoLOG 24 unit SQ AC-SUPPER vial 02/25/20 (formulary)] Butalb/APAP/Caff 50-325-40Mg 1 tab PO QID PRN #12 tab 02/26/20 [Fioricet 50-325-40] Gabapentin [Neurontin] 100 mg PO TID #9 cap 03/24/20 Cephalexin [Keflex] 250 mg PO HS #30 cap 04/23/20 Hydrocortisone [Cortef] 10 mg PO HS #60 tab 06/26/20 Hydrocortisone [Cortef] 15 mg PO AC-BRKFST #90 tab 06/26/20 Hydrocortisone [Cortef] 15 mg PO W/LUNCH #90 tab 06/26/20 Nitrofurantoin Monohyd/M-Cryst 100 mg PO Q12HR #14 cap 11/25/20 [Macrobid] Allergies Allergy/AdvReac Type Severity Reaction Status Date / Time butorphanol tartrate Allergy BLISTERS Verified 06/25/20 11:08 [From Stadol] IN MOUTH ceftriaxone [From Rocephin] Allergy Unknown Verified 06/25/20 11:08 clarithromycin [From Biaxin] Allergy Rash/Hives Verified 06/25/20 11:08 codeine Allergy Rash/Hives Verified 06/25/20 11:08 ergotamine tartrate Allergy Unknown Verified 06/25/20 11:08 [From Cafergot] erythromycin base Allergy RASH, GI Verified 06/25/20 11:08 [From E-Mycin] SYMPTOMS ketorolac tromethamine Allergy Rash/Hives Verified 06/25/20 11:08 [From Toradol] liraglutide [From Victoza] Allergy Rash/Hives Verified 06/25/20 11:08 morphine Allergy Rash/Hives Verified 06/25/20 11:08 Penicillins Allergy Rash/Hives Verified 06/25/20 11:08 pentazocine lactate Allergy SEVERE Verified 06/25/20 11:08 [From Talwin] BLISTERS IN MOUTH pregabalin [From Lyrica] Allergy Rash/Hives Verified 06/25/20 11:08 propoxyphene HCl Allergy Rash/Hives Verified 06/25/20 11:08 [From Darvon] Sulfa (Sulfonamide Allergy Rash/Hives Verified 06/25/20 11:08 Antibiotics) tramadol Allergy Unknown Verified 06/25/20 11:08 monosodium glutamate [MSG] AdvReac Nausea & Verified 06/25/20 11:08 Vomiting nalbuphine HCl [From Nubain] AdvReac Nausea & Verified 06/25/20 11:08 Vomiting Review of Systems ROS Statement: Those systems with pertinent positive or pertinent negative responses have been documented in the HPI. ROS Other: All systems not noted in ROS Statement are negative. Past Medical History Past Medical History: Diabetes Mellitus, Deep Vein Thrombosis (DVT), Fibromyalgia, Hyperlipidemia, Hypertension, Osteoarthritis (OA), Pneumonia, Renal Disease, Sleep Apnea/CPAP/BIPAP, Vascular Disorder Additional Past Medical History / Comment(s): Pt recently admitted to [facility] On 02/23/20 with complicated UTI/migraine/nausea and vomiting. 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, DVT R calf in 1976, cardiac murmur, occipital neuraligia, balance issues-has narrowing of vessels "in the back of my head", vertigo, varicosities, states rt shoulder torn rotator cuff History of Any Multi-Drug Resistant Organisms: ESBL, MRSA, VRE Date of last positivie culture/infection: 04/22/20 ESBL; 03/10/11 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 MDRO Source:: ESBL URINE; MRSA 4th rt TOE VRE URINE Past Surgical History: Appendectomy, Back Surgery, Bladder Surgery, Breast Surgery, Cholecystectomy, Heart Catheterization, Hysterectomy, Orthopedic Surgery, Tonsillectomy Additional Past Surgical History / Comment(s): Lumbar fusions, bladder suspension, occipital nerve blocks, 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, R wrist/elbow nerve repair, bone removed R shoulder, 4th toe R foot partial amputation, bilateral feet/bunionectomies, R knee arthroscopies, R orbit decompression with ethmoidectomy and eyelid lift, EGD, colonoscopies, cystocopies, lithotripsy/stents, bilateral breast reduction, bilateral cataract removals, parathyroid surgery - April 2019, pain clinic procedures Past Anesthesia/Blood Transfusion Reactions: No Reported Reaction Additional Past Anesthesia/Blood Transfusion Reaction / Comment(s): never recieved blood Past Psychological History: Depression Smoking Status: Never smoker Past Alcohol Use History: None Reported Past Drug Use History: None Reported - Past Family History Father Family Medical History: Coronary Artery Disease (CAD), CVA/TIA, Diabetes Mellitus, Myocardial Infarction ([place]), Pneumonia Additional Family Medical History / Comment(s): Father at the age of 78yrs from [place] and pneumonia. Mother Family Medical History: Cancer Additional Family Medical History / Comment(s): Mother had uterine cancer. She recently at the age of 96yrs old from [place]. General Exam Limitations: no limitations General appearance: alert, in no apparent distress, other (This well-developed, well-nourished adult female patient in no acute distress. Vital signs upon presentation temperature 98.1F, pulse 100, respirations 18, blood pressure 136/81, pulse ox 98% on room air.) Eye exam: Present: normal appearance, PERRL, EOMI. Absent: scleral icterus, conjunctival injection, nystagmus, periorbital swelling ENT exam: Present: normal exam, normal oropharynx, mucous membranes moist Respiratory exam: Present: normal lung sounds bilaterally. Absent: respiratory distress, wheezes, rales, rhonchi, stridor Cardiovascular Exam: Present: regular rate, normal rhythm, normal heart sounds. Absent: systolic murmur, diastolic murmur, rubs, gallop, clicks GI/Abdominal exam: Present: soft, tenderness (Right upper and right lower quadr ant), normal bowel sounds. Absent: distended, guarding, rebound, rigid Neurological exam: Present: alert, oriented X3, CN II-XII intact Psychiatric exam: Present: normal affect, normal mood Skin exam: Present: warm, dry, intact, normal color. Absent: rash Course Vital Signs 11/25/20 18:41 Temperature 98.1 F Pulse Rate 100 Respiratory 18 Rate Blood Pressure 136/81 O2 Sat by Pulse 98 Oximetry Medical Decision Making - Medical Decision Making 70 year-old female patient presents with headache and UTI complaints. Patient has hx of occipital neuralgia and headache pattern is similar to previous flares, she does have an appointment Monday for injections for this. Physical exam revealed mild abdominal tenderness. Urinalysis showed 58 WBC. Labs showed WBC count 10.9. She will be started on macrobid pending urine culture. She was given IV pain and nausea medication which she reports did improve her symptoms. She'll be discharged with injections follow-up with her primary care physician for recheck tomorrow. Return parameters were discussed in detail. She verbalizes understanding and agrees with this plan. Case discussed with my attending Dr. Garcias. - Lab Data Result diagrams: 11/25/20 19:50 11/25/20 19:50 Lab Results 11/25/20 11/25/20 11/25/20 Range/Units 19:50 19:50 19:50 WBC 10.7 H (3.8-10.6) k/uL RBC 4.94 (3.80-5.40) m/uL Hgb 14.5 (11.4-16.0) gm/dL Hct 44.0 (34.0-46.0) % MCV 89.1 (80.0-100.0) fL MCH 29.3 (25.0-35.0) pg MCHC 32.9 (31.0-37.0) g/dL RDW 14.4 (11.5-15.5) % Plt Count 290 (150-450) k/uL MPV 8.2 Neutrophils % 79 % Lymphocytes % 16 % Monocytes % 2 % Eosinophils % 1 % Basophils % 0 % Neutrophils # 8.5 H (1.3-7.7) k/uL Lymphocytes # 1.7 (1.0-4.8) k/uL Monocytes # 0.3 (0-1.0) k/uL Eosinophils # 0.2 (0-0.7) k/uL Basophils # 0.0 (0-0.2) k/uL Sodium 137 (137-145) mmol/L Potassium 4.2 (3.5-5.1) mmol/L Chloride 102 (98-107) mmol/L Carbon Dioxide 23 (22-30) mmol/L Anion Gap 12 mmol/L BUN 26 H (7-17) mg/dL Creatinine 0.57 (0.52-1.04) mg/dL Est GFR (CKD-EPI)AfAm >90 (>60 ml/min/1.73 sqM) Est GFR (CKD-EPI)NonAf >90 (>60 ml/min/1.73 sqM) Glucose 134 H (74-99) mg/dL Calcium 10.0 (8.4-10.2) mg/dL Total Bilirubin 0.4 (0.2-1.3) mg/dL AST 24 (14-36) U/L ALT 19 (4-34) U/L Alkaline Phosphatase 77 (38-126) U/L Total Protein 6.5 (6.3-8.2) g/dL Albumin 4.3 (3.5-5.0) g/dL Urine Color Yellow Urine Appearance Clear (Clear) Urine pH 5.5 (5.0-8.0) Ur Specific [place] 1.035 (1.001-1.035) Urine Protein 1+ H (Negative) Urine Glucose (UA) 1+ H (Negative) Urine Ketones 2+ H (Negative) Urine Blood Small H (Negative) Urine Nitrite Negative (Negative) Urine Bilirubin Negative (Negative) Urine Urobilinogen <2.0 (<2.0) mg/dL Ur Leukocyte Esterase Large H (Negative) Urine RBC 5 (0-5) /hpf Urine WBC 53 H (0-5) /hpf Ur Squamous Epith Cells 2 (0-4) /hpf Urine Bacteria Rare H (None) /hpf Hyaline Casts 5 H (0-2) /lpf Urine Mucus Few H (None) /hpf Disposition Clinical Impression: Headache, UTI (urinary tract infection) Disposition: HOME SELF-CARE Condition: Good Instructions (If sedation given, give patient instructions): Urinary Tract Infection in Women (ED), Acute Headache (ED) Additional Instructions: Complete antibiotic prescription in full. Follow-up with your primary care physician for recheck in 1-2 days. Return for any new, worsening, or concerning symptoms. Prescriptions: Nitrofurantoin Monohyd/M-Cryst [Macrobid] 100 mg PO Q12HR #14 cap Is patient prescribed a controlled substance at d/c from ED?: No Referrals: Andrew Gonsales MD [Primary Care Provider] - 1-2 days Time of Disposition: 20:38
[2020-11-25 20:06] LABS: ALT 19 U/L (4-34); AST 24 U/L (14-36); African American GFR (CKD) >90 (>60 ml/min/1.73 sqM); Albumin 4.3 g/dL (3.5-5.0); Alkaline Phosphatase 77 U/L (38-126); Anion Gap 12 mmol/L; Blood Urea Nitrogen 26 mg/dL (7-17); Carbon Dioxide 23 mmol/L (22-30); Chloride 102 mmol/L (98-107); Glucose 134 mg/dL (74-99); Non-African American GFR(CKD) >90 (>60 ml/min/1.73 sqM); Potassium 4.2 mmol/L (3.5-5.1); Sodium 137 mmol/L (137-145); Total Bilirubin 0.4 mg/dL (0.2-1.3); Total Protein 6.5 g/dL (6.3-8.2)
[2020-11-25 20:09] LABS: Appearance,Urine Clear (Clear); Bacteria,Urine Rare /hpf; Bilirubin,Urine Negative (Negative); Blood,Urine Small (Negative); Color,Urine Yellow; Glucose,Urine (UA) 1+ (Negative); Hyaline Casts,Urine 5 /lpf (0-2); Leukocyte Esterase,Urine Large (Negative); Mucus,Urine Few /hpf; Nitrite,Urine Negative (Negative); PH, Urine 5.5 (5.0-8.0); Protein,Urine 1+ (Negative); RBC,Urine 5 /hpf (0-5); Specific Gravity,Urine 1.035 (1.001-1.035); Squamous Epithelial Cell,Urine 2 /hpf (0-4); Urobilinogen,Urine <2.0 mg/dL (<2.0); WBC,Urine 53 /hpf (0-5)
[2020-11-25 20:13] LABS: Ketones,Urine 2+ (Negative)
[2020-11-25 20:19] LABS: Basophils % (A) 0 %; Eosinophils # (A) 0.2 k/uL (0-0.7); Eosinophils % (A) 1 %; HGB 14.5 gm/dL (11.4-16.0); Lymphocytes # (A) 1.7 k/uL (1.0-4.8); Lymphocytes % (A) 16 %; MCH 29.3 pg (25.0-35.0); MCHC 32.9 g/dL (31.0-37.0); MCV 89.1 fL (80.0-100.0); Mean Platelet Volume 8.2; Monocytes # (A) 0.3 k/uL (0-1.0); Monocytes % (A) 2 %; Neutrophils # (A) 8.5 k/uL (1.3-7.7); Neutrophils % (A) 79 %; Platelet Count 290 k/uL (150-450); RBC 4.94 m/uL (3.80-5.40); RDW 14.4 % (11.5-15.5); WBC 10.7 k/uL (3.8-10.6)
[2020-11-25] MEDS ORDERED: NITROFURANTOIN MONOHYD/M-CRYST 100 MG CAP PO STA (20:37)
[2020-11-25 21:19] VITALS: BP 138/78; PULSE 74; RESP 17; TEMP 98.5
== END 2020-11-25 21:16 | disposition home or self-care (01) ==
LOC: EC 18:35
DX: N39.0 Urinary tract infection, site not specified (principal); R51.9 Headache, unspecified; I10 Essential (primary) hypertension; E78.5 Hyperlipidemia, unspecified; E11.40 Type 2 diabetes mellitus with diabetic neuropathy, unspecified; M19.90 Unspecified osteoarthritis, unspecified site; F32.9 Major depressive disorder, single episode, unspecified; G47.33 Obstructive sleep apnea (adult) (pediatric); Z86.718 Personal history of other venous thrombosis and embolism; Z79.02 Long term (current) use of antithrombotics/antiplatelets; Z79.4 Long term (current) use of insulin; Z79.82 Long term (current) use of aspirin; Z79.899 Other long term (current) drug therapy; Z87.442 Personal history of urinary calculi; Z88.0 Allergy status to penicillin
CPT/HCPCS: 36415; 80053; 85025; 81001; 87086; 99284; 96374; 96375 ×2; 96376; J1200; J2405; J1170; 87077; 87186

== ENCOUNTER 2020-11-26 12:04 | Inpatient (IN) | payer MEDICARE, BC ==
[2020-11-26] MEDS ORDERED: ONDANSETRON 4 MG/2 ML VIAL IVP STA (12:43)
[2020-11-26] MEDS ORDERED: HYDROmorphone 0.5 MG/0.5 ML SYRINGE IVP STA (12:43)
[2020-11-26] MEDS ORDERED: PANTOPRAZOLE 40 MG/10 ML VIAL IVP STA (12:43)
[2020-11-26] MEDS ORDERED: HYDROCORTISONE SUCCINATE 100 MG/2 ML VIAL IV STA (12:46)
--- NOTE | 2020-11-26 12:48 | ED ---
General Adult HPI - General Chief complaint: Abdominal Pain Stated complaint: UTI Time Seen by Provider: 11/26/20 12:26 Source: patient, EMS, RN notes reviewed, old records reviewed Mode of arrival: EMS Limitations: no limitations - History of Present Illness Initial comments: Patient is a pleasant 70-year-old female presenting to the emergency department with nausea vomiting and right flank pain. Patient states she has been dealing with a urinary tract infection recently. Patient states she was on maintenance Keflex followed by [facility]. Patient now is having discomfort in the right flank. Patient has been vomiting 3-4 times daily for the past 2 days. Patient is worried about keeping her steroids down. No constipation or diarrhea. No fevers. - Related Data Home Medications Medication Instructions Recorded Confirmed Cholecalciferol [Vitamin D3 (25 1,000 unit PO DAILY@0700 12/01/14 06/25/20 Mcg = 1000 Iu)] Metoprolol Succinate (ER) [Toprol 50 mg PO HS 07/06/17 06/25/20 XL] Meclizine [Antivert] 25 mg PO TID PRN 11/26/17 06/25/20 Glucagon Emergency Kit 1 mg IM ONCE PRN 08/12/18 06/25/20 Ferrous Sulfate [Iron (65 MG 325 mg PO DAILY 10/08/18 06/25/20 Elemental)] Folic Acid 0.4 mg PO DAILY 10/08/18 06/25/20 L.acidoph,Paracasei, B.lactis 2 cap PO BID 10/08/18 06/25/20 [Probiotic] Melatonin 5 mg PO HS PRN 10/08/18 06/25/20 Multivitamins, Thera Liquid 30 ml PO DAILY 10/08/18 06/25/20 [Theragran Liquid (formulary)] Potassium 99 mg PO DAILY 10/08/18 06/25/20 Thiamine [Vitamin B-1] 100 mg PO DAILY 10/08/18 06/25/20 Vitamin B-Complex Drops 1 ml PO BID 10/08/18 06/25/20 Venlafaxine HCl [Effexor XR] 75 mg PO DAILY 11/08/19 06/25/20 Clopidogrel [Plavix] 75 mg PO DAILY 12/06/19 06/25/20 Magnesium Oxide [Mag-Ox] 400 mg PO DAILY 12/06/19 06/25/20 HYDROcodone/APAP 10-325MG [[place] 1 tab PO TID PRN 04/16/20 06/25/20 10-325] C,E,Zinc,Copper 11/Gkfyd4h/Lut 1 cap PO DAILY 06/25/20 06/25/20 [Ocuvite Adult 50 Plus Softgel] Cranberry Fruit Extract [Cranberry] 200 mg PO BID 06/25/20 06/25/20 Cyanocobalamin (Vitamin B-12) 1,000 mcg PO DAILY 06/25/20 06/25/20 [Vitamin B-12] Insulin Glargine [Lantus] 26 unit SQ HS@2200 06/25/20 06/25/20 Ondansetron HCl [Zofran] 4 mg PO Q6HR PRN 06/25/20 06/25/20 Spironolactone 50 mg PO DAILY 06/25/20 06/25/20 Vitamin E 400 unit PO DAILY 06/25/20 06/25/20 lisinopriL 40 mg PO DAILY 06/25/20 06/25/20 Previous Rx's Medication Instructions Recorded Aspirin 81 mg PO DAILY #0 07/02/18 Atorvastatin [Lipitor] 40 mg PO HS #30 tab 11/16/18 Cholestyramine (with Sugar) 4 gm PO TID BETWEEN MEALS #30 02/19/20 [Questran Packet] packet INSULIN ASPART (NovoLOG) [NovoLOG 14 unit SQ AC-BRKFST vial 02/25/20 (formulary)] INSULIN ASPART (NovoLOG) [NovoLOG 18 unit SQ AC-LUNCH vial 02/25/20 (formulary)] INSULIN ASPART (NovoLOG) [NovoLOG 24 unit SQ AC-SUPPER vial 02/25/20 (formulary)] Butalb/APAP/Caff 50-325-40Mg 1 tab PO QID PRN #12 tab 02/26/20 [Fioricet 50-325-40] Gabapentin [Neurontin] 100 mg PO TID #9 cap 03/24/20 Cephalexin [Keflex] 250 mg PO HS #30 cap 04/23/20 Hydrocortisone [Cortef] 10 mg PO HS #60 tab 06/26/20 Hydrocortisone [Cortef] 15 mg PO AC-BRKFST #90 tab 06/26/20 Hydrocortisone [Cortef] 15 mg PO W/LUNCH #90 tab 06/26/20 Nitrofurantoin Monohyd/M-Cryst 100 mg PO Q12HR #14 cap 11/25/20 [Macrobid] Allergies Allergy/AdvReac Type Severity Reaction Status Date / Time butorphanol tartrate Allergy BLISTERS Verified 06/25/20 11:08 [From Stadol] IN MOUTH ceftriaxone [From Rocephin] Allergy Unknown Verified 06/25/20 11:08 clarithromycin [From Biaxin] Allergy Rash/Hives Verified 06/25/20 11:08 codeine Allergy Rash/Hives Verified 06/25/20 11:08 ergotamine tartrate Allergy Unknown Verified 06/25/20 11:08 [From Cafergot] erythromycin base Allergy RASH, GI Verified 06/25/20 11:08 [From E-Mycin] SYMPTOMS ketorolac tromethamine Allergy Rash/Hives Verified 06/25/20 11:08 [From Toradol] liraglutide [From Victoza] Allergy Rash/Hives Verified 06/25/20 11:08 morphine Allergy Rash/Hives Verified 06/25/20 11:08 Penicillins Allergy Rash/Hives Verified 06/25/20 11:08 pentazocine lactate Allergy SEVERE Verified 06/25/20 11:08 [From Talwin] BLISTERS IN MOUTH pregabalin [From Lyrica] Allergy Rash/Hives Verified 06/25/20 11:08 propoxyphene HCl Allergy Rash/Hives Verified 06/25/20 11:08 [From Darvon] Sulfa (Sulfonamide Allergy Rash/Hives Verified 06/25/20 11:08 Antibiotics) tramadol Allergy Unknown Verified 06/25/20 11:08 monosodium glutamate [MSG] AdvReac Nausea & Verified 06/25/20 11:08 Vomiting nalbuphine HCl [From Nubain] AdvReac Nausea & Verified 06/25/20 11:08 Vomiting Review of Systems ROS Statement: Those systems with pertinent positive or pertinent negative responses have been documented in the HPI. ROS Other: All systems not noted in ROS Statement are negative. Constitutional: Denies: fever Eyes: Denies: eye pain ENT: Denies: ear pain Respiratory: Denies: cough Cardiovascular: Denies: chest pain Endocrine: Denies: fatigue Gastrointestinal: Reports: as per HPI, abdominal pain, nausea, vomiting Genitourinary: Denies: dysuria Musculoskeletal: Reports: as per HPI Skin: Denies: rash Neurological: Reports: headache (Patient request pain medication for her chronic occipital neuralgia.) Past Medical History Past Medical History: Diabetes Mellitus, Deep Vein Thrombosis (DVT), Fibromyalgia, Hyperlipidemia, Hypertension, Osteoarthritis (OA), Pneumonia, Renal Disease, Sleep Apnea/CPAP/BIPAP, Vascular Disorder Additional Past Medical History / Comment(s): Pt recently admitted to [facility] On 02/23/20 with complicated UTI/migraine/nausea and vomiting. 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, DVT R calf in 1976, cardiac murmur, occipital neuraligia, balance issues-has narrowing of vessels "in the back of my head", vertigo, varicosities, states rt shoulder torn rotator cuff History of Any Multi-Drug Resistant Organisms: ESBL, MRSA, VRE Date of last positivie culture/infection: 04/22/20 ESBL; 03/10/11 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 MDRO Source:: ESBL URINE; MRSA 4th rt TOE VRE URINE Past Surgical History: Appendectomy, Back Surgery, Bladder Surgery, Breast Surgery, Cholecystectomy, Heart Catheterization, Hysterectomy, Orthopedic Surgery, Tonsillectomy Additional Past Surgical History / Comment(s): Lumbar fusions, bladder suspension, occipital nerve blocks, 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, R wrist/elbow nerve repair, bone removed R shoulder, 4th toe R foot partial amputation, bilateral feet/bunionectomies, R knee arthroscopies, R orbit decompression with ethmoidectomy and eyelid lift, EGD, colonoscopies, cystocopies, lithotripsy/stents, bilateral breast reduction, bilateral cataract removals, parathyroid surgery - April 2019, pain clinic procedures Past Anesthesia/Blood Transfusion Reactions: No Reported Reaction Additional Past Anesthesia/Blood Transfusion Reaction / Comment(s): never recieved blood Past Psychological History: Depression Smoking Status: Never smoker Past Alcohol Use History: None Reported Past Drug Use History: None Reported - Past Family History Father Family Medical History: Coronary Artery Disease (CAD), CVA/TIA, Diabetes Mellitus, Myocardial Infarction ([place]), Pneumonia Additional Family Medical History / Comment(s): Father at the age of 78yrs from [place] and pneumonia. Mother Family Medical History: Cancer Additional Family Medical History / Comment(s): Mother had uterine cancer. She recently at the age of 96yrs old from [employer]. General Exam Limitations: no limitations General appearance: alert, in no apparent distress Head exam: Present: atraumatic Eye exam: Present: normal appearance, PERRL Neck exam: Present: normal inspection Respiratory exam: Present: normal lung sounds bilaterally Cardiovascular Exam: Present: regular rate, normal rhythm Expanded Peripheral pulses: 2+: Dorsalis Pedis (R), Dorsalis Pedis (L) GI/Abdominal exam: Present: soft, tenderness (Right lateral flank, mild to mode rate tenderness). Absent: distended, guarding, rebound, rigid Extremities exam: Present: normal inspection Back exam: Present: CVA tenderness (R) Neurological exam: Present: alert Psychiatric exam: Present: normal affect, normal mood Skin exam: Present: normal color Course Vital Signs 11/26/20 12:09 Temperature 98.5 F Pulse Rate 100 Respiratory 18 Rate Blood Pressure 142/86 O2 Sat by Pulse 96 Oximetry Medical Decision Making - Medical Decision Making Case was discussed with Dr. Agarwal, who will admit his patient. He does request ID consult. Patient updated. - Lab Data Result diagrams: 11/26/20 13:31 11/26/20 13:31 Lab Results 11/26/20 11/26/20 11/26/20 Range/Units 13:31 13:31 13:31 WBC 9.4 (3.8-10.6) k/uL RBC 4.94 (3.80-5.40) m/uL Hgb 15.1 (11.4-16.0) gm/dL Hct 44.3 (34.0-46.0) % MCV 89.6 (80.0-100.0) fL MCH 30.6 (25.0-35.0) pg MCHC 34.2 (31.0-37.0) g/dL RDW 13.7 (11.5-15.5) % Plt Count 246 (150-450) k/uL MPV 7.7 Neutrophils % 79 % Lymphocytes % 14 % Monocytes % 4 % Eosinophils % 1 % Basophils % 0 % Neutrophils # 7.5 (1.3-7.7) k/uL Lymphocytes # 1.4 (1.0-4.8) k/uL Monocytes # 0.4 (0-1.0) k/uL Eosinophils # 0.1 (0-0.7) k/uL Basophils # 0.0 (0-0.2) k/uL PT 10.3 (9.0-12.0) sec INR 1.0 (<1.2) APTT 19.0 L (22.0-30.0) sec Sodium 137 (137-145) mmol/L Potassium 4.7 (3.5-5.1) mmol/L Chloride 101 (98-107) mmol/L Carbon Dioxide 23 (22-30) mmol/L Anion Gap 13 mmol/L BUN 20 H (7-17) mg/dL Creatinine 0.66 (0.52-1.04) mg/dL Est GFR (CKD-EPI)AfAm >90 (>60 ml/min/1.73 sqM) Est GFR (CKD-EPI)NonAf 89 (>60 ml/min/1.73 sqM) Glucose 227 H (74-99) mg/dL Calcium 9.5 (8.4-10.2) mg/dL Total Bilirubin 0.7 (0.2-1.3) mg/dL AST 23 (14-36) U/L ALT 16 (4-34) U/L Alkaline Phosphatase 84 (38-126) U/L Total Protein 6.3 (6.3-8.2) g/dL Albumin 4.3 (3.5-5.0) g/dL Amylase 50 (30-110) U/L Lipase 49 (23-300) U/L Disposition Clinical Impression: Vomiting, Urinary tract infection Disposition: ADMITTED IP TO THIS HOSP Is patient prescribed a controlled substance at d/c from ED?: No Referrals: Andrew Gonsales MD [Primary Care Provider] - 1-2 days Decision Time: 14:31
[2020-11-26 13:51] LABS: Basophils % (A) 0 %; Eosinophils # (A) 0.1 k/uL (0-0.7); Eosinophils % (A) 1 %; HCT 44.3 % (34.0-46.0); HGB 15.1 gm/dL (11.4-16.0); Lymphocytes # (A) 1.4 k/uL (1.0-4.8); Lymphocytes % (A) 14 %; MCH 30.6 pg (25.0-35.0); MCHC 34.2 g/dL (31.0-37.0); MCV 89.6 fL (80.0-100.0); Mean Platelet Volume 7.7; Monocytes # (A) 0.4 k/uL (0-1.0); Monocytes % (A) 4 %; Neutrophils # (A) 7.5 k/uL (1.3-7.7); Neutrophils % (A) 79 %; Platelet Count 246 k/uL (150-450); RBC 4.94 m/uL (3.80-5.40); RDW 13.7 % (11.5-15.5); WBC 9.4 k/uL (3.8-10.6)
[2020-11-26 14:10] LABS: Prothrombin Time 10.3 sec (9.0-12.0)
[2020-11-26 14:14] LABS: ALT 16 U/L (4-34); AST 23 U/L (14-36); African American GFR (CKD) >90 (>60 ml/min/1.73 sqM); Albumin 4.3 g/dL (3.5-5.0); Alkaline Phosphatase 84 U/L (38-126); Amylase 50 U/L (30-110); Anion Gap 13 mmol/L; Blood Urea Nitrogen 20 mg/dL (7-17); Calcium 9.5 mg/dL (8.4-10.2); Carbon Dioxide 23 mmol/L (22-30); Chloride 101 mmol/L (98-107); Glucose 227 mg/dL (74-99); Lipase 49 U/L (23-300); Non-African American GFR(CKD) 89 (>60 ml/min/1.73 sqM); Potassium 4.7 mmol/L (3.5-5.1); Sodium 137 mmol/L (137-145); Total Bilirubin 0.7 mg/dL (0.2-1.3); Total Protein 6.3 g/dL (6.3-8.2)
[2020-11-26] MEDS ORDERED: NALOXONE 0.4 MG/ML 1 ML VIAL IV PRN (14:38)
[2020-11-26] MEDS ORDERED: ACETAMINOPHEN TAB 325 MG TAB PO PRN (14:38)
[2020-11-26] MEDS ORDERED: GENTAMICIN PER PHARMACY MISCELLANE SCH (14:45)
--- NOTE | 2020-11-26 15:05 | XR ---
EXAMINATION TYPE: XR KUB DATE OF EXAM: 11/26/2020 2:50 PM CLINICAL HISTORY: Severe right-sided abdominal and pelvic pain. TECHNIQUE: Two Upright KUB images of the abdomen are obtained. COMPARISON: CT abdomen and pelvis April 22, 2020. FINDINGS: Scattered gas is seen in non-distended small and large bowel loops. Cholecystectomy clips a re redemonstrated. Extensive surgical change in the lumbar spine from upper sacrum redemonstrated. Ca rdiomegaly with left basilar scarring and/or atelectasis redemonstrated. No free air. Dystrophic calc ifications bilateral hip region again seen. IMPRESSION: Overall nonobstructive bowel gas pattern remains present.
[2020-11-26] MEDS: SODIUM CHLORIDE 0.9% 1,000 ML IV SCH (15:19)
[2020-11-26] MEDS: HYDROmorphone 0.5 MG/0.5 ML SYRINGE IVP PRN ×2 (15:43→20:46)
--- NOTE | 2020-11-26 15:46 | US ---
EXAMINATION TYPE: US kidneys/renal and bladder DATE OF EXAM: 11/26/2020 COMPARISON: CT April 22, 2020 CLINICAL HISTORY: Right flank pain. EXAM MEASUREMENTS: Right Kidney: 10.0 x 4.9 x 4.5 cm Left Kidney: 9.4 x 4.3 x 3.1 cm Right Kidney: 2.2 x 2.2 x 2.3cm cyst lateral mid pole Left Kidney: 0.5cm echogenic focus lateral mid pole, 2.5 x 2.6 x 3.8cm cyst lateral mid pole Bladder: wnl Bilateral Jets seen: yes There is no evidence for hydronephrosis at this point in time. No nephrolithiasis is seen. The urin akira bladder is not greatly distended. Bilateral ureteral jets are seen. IMPRESSION: No hydronephrosis seen bilaterally.
[2020-11-26] MEDS ORDERED: GENTAMICIN 270 MG in SODIUM CHLORIDE 0.9% 100 ML IVPB ONE (16:00)
[2020-11-26 17:12] LABS: Appearance,Urine Clear (Clear); Bilirubin,Urine Negative (Negative); Blood,Urine Negative (Negative); Color,Urine Yellow; Glucose,Urine (UA) 3+ (Negative); Leukocyte Esterase,Urine Moderate (Negative); Mucus,Urine Rare /hpf; Nitrite,Urine Negative (Negative); Protein,Urine Trace (Negative); RBC,Urine 3 /hpf (0-5); Specific Gravity,Urine 1.022 (1.001-1.035); Squamous Epithelial Cell,Urine 2 /hpf (0-4); Urobilinogen,Urine <2.0 mg/dL (<2.0); WBC,Urine 11 /hpf (0-5)
[2020-11-26 17:14] LABS: Ketones,Urine 4+ (Negative)
[2020-11-26] MEDS ORDERED: BUTALB/APAP/CAFF 50-325-40MG TAB PO PRN (17:38)
[2020-11-26] MEDS ORDERED: MECLIZINE 25 MG TAB PO PRN (17:40)
[2020-11-26] MEDS ORDERED: MELATONIN 5 MG TABLET PO PRN (17:40)
[2020-11-26] MEDS ORDERED: METOCLOPRAMIDE 5 MG TAB PO PRN (17:40)
[2020-11-26] MEDS: HYDROcodone/APAP 10-325MG 1 EACH TAB PO SCH (19:28)
[2020-11-26] MEDS: ONDANSETRON 4 MG/2 ML VIAL IVP PRN (20:47)
[2020-11-26] MEDS ORDERED: NON FORMULARY DRUG (Hydrocortisone [Cortef] 5 MG Tablet) PO SCH (21:00)
[2020-11-26] MEDS: ATORVASTATIN 40 MG TAB PO SCH (21:39)
[2020-11-26] MEDS: METOPROLOL SUCCINATE (ER) 50 MG TAB.ER.24H PO SCH (21:39)
[2020-11-26] MEDS: HYDROCORTISONE SUCCINATE 100 MG/2 ML VIAL IV SCH (21:39)
[2020-11-26] MEDS: GABAPENTIN 100 MG CAP PO SCH (21:39)
[2020-11-27] MEDS: HYDROcodone/APAP 10-325MG 1 EACH TAB PO SCH ×5 (01:32→23:16)
[2020-11-27] MEDS: BRIMONIDINE TARTRATE 0.2% DROPS 5 ML BTL RIGHT EYE SCH ×3 (01:34→21:44)
[2020-11-27] MEDS: HYDROmorphone 0.5 MG/0.5 ML SYRINGE IVP PRN ×6 (02:42→23:24)
[2020-11-27] MEDS: HYDROCORTISONE SUCCINATE 100 MG/2 ML VIAL IV SCH ×3 (05:56→23:24)
[2020-11-27] MEDS ORDERED: PANTOPRAZOLE 40 MG TABLET PO SCH (07:30)
[2020-11-27 07:53] LABS: Glucose,Whole Blood 218 mg/dL (75-99)
[2020-11-27] MEDS: SPIRONOLACTONE 25 MG TAB PO SCH (08:10)
[2020-11-27] MEDS: ASPIRIN 81 MG PO SCH (08:10)
[2020-11-27] MEDS: GABAPENTIN 100 MG CAP PO SCH ×3 (08:10→20:12)
[2020-11-27] MEDS: POTASSIUM CHLORIDE ER 10 MEQ TAB.ER.PRT PO SCH (08:10)
[2020-11-27] MEDS: lisinopriL 20 MG TAB PO SCH (08:10)
[2020-11-27] MEDS: CHOLESTYRAMINE (WITH SUGAR) 4 GM PACKET PO SCH (08:14)
[2020-11-27] MEDS: PANTOPRAZOLE 40 MG/10 ML VIAL IV SCH (08:16)
[2020-11-27] MEDS: VENLAFAXINE HCL ER 75 MG CAP PO SCH (08:16)
[2020-11-27] MEDS ORDERED: HYDROCORTISONE 10 MG TAB PO SCH ×2 (09:00→12:00)
[2020-11-27] MEDS: INSULIN DETEMIR (LEVEMIR) 100 UNIT/ML SYR SQ SCH (10:39)
[2020-11-27 11:41] LABS: Glucose,Whole Blood 240 mg/dL (75-99)
[2020-11-27] MEDS: ONDANSETRON 4 MG/2 ML VIAL IVP PRN ×2 (12:15→20:12)
[2020-11-27] MEDS: ERTAPENEM 1 GM in SODIUM CHLORIDE 0.9% 50 ML IVPB SCH (14:38)
[2020-11-27] MEDS: SODIUM CHLORIDE 0.9% 1,000 ML IV SCH (14:39)
[2020-11-27] MEDS ORDERED: GENTAMICIN 270 MG in SODIUM CHLORIDE 0.9% 100 ML IVPB SCH (16:00)
[2020-11-27 17:19] LABS: Glucose,Whole Blood 253 mg/dL (75-99)
[2020-11-27] MEDS: INSULIN ASPART (NovoLOG) 100 UNIT/ML VIAL SQ SCH ×2 (17:38→21:00)
--- NOTE | 2020-11-27 19:07 | CONS ---
CONSULTATION DATE OF SERVICE: 11/27/2020 REASON FOR CONSULTATION: Urinary tract infection. 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 The patient apparently did well as she was kept on once a day prophylactic dose of Keflex and has not been in the hospital for almost 6 months now. The patient started having a bowel about a week ago with more urinary frequency, some pressure. She was diagnosed with UTI by her primary care physician. She was given oral Levaquin. However, the patient did not have any improvement. The patient complaining of frequency of urine, suprapubic discomfort, more of a dull aching 4 to 5 out of 10 and no radiation. She has been complaining of vomiting with multiple movements for the last 2 days and unable to keep anything down. Did have some diarrhea. With these symptoms, the patient was sent to the ER. On arrival to the ER, the patient has been afebrile, low-grade fever of 99.2 degrees this morning. The patient did have a normal white count with no left shift. Creatinine was normal. Liver enzymes are normal. Urine was mildly positive. Corrigan PCR was negative. The patient did have a KUB x-ray. Shows no overall nonobstructive bowel gas pattern remains present. She was started on gentamicin because of MULTIPLE ANTIBIOTIC ALLERGIES. Infectious Disease was consulted for further management of antibiotic therapy. REVIEW OF SYSTEMS: Positive points have been mentioned in HPI. Rest of systems are negative. PAST MEDICAL HISTORY: Recurrent urinary tract infection, diabetes mellitus, DVT, fibromyalgia, hyperlipidemia, hypertension, osteoarthritis, pneumonia, venous insufficiency. PAST SURGICAL HISTORY: Appendectomy, back surgery, bladder surgery, cholecystectomy, heart catheterization, hysterectomy, tonsillectomy, lumbar fusion. SOCIAL HISTORY: No history of smoking, drinking or drug use. FAMILY HISTORY: Father with history of coronary artery disease, CVA, TIA. Mother history of uterine cancer. ALLERGIES: ALLERGIC TO MULTIPLE MEDICATION DOCUMENTED IN THE CHART and were reviewed. MEDICATION: Currently the patient is on Tylenol, [place], aspirin, Lipitor, Questran, gentamicin, pharmacy to dose, Neurontin, hydrocortisone, Dilaudid, NovoLog, Levemir, Zestril, melatonin, Reglan, Narcan, Protonix, Effexor. PHYSICAL EXAMINATION: Blood pressure 153/80 with a pulse of 69, temperature 98.7. She is 94% on room air. General description: The patient is an elderly female lying in bed in no distress. No tachypnea or accessory muscles of respiration use. HEENT: Examination shows no pallor or scleral icterus. Oral mucous membrane is dry. NECK: Trachea central. No thyromegaly. LUNGS unlabored breathing, clear to auscultation with no wheeze or crackles. HEART S1, S2. Regular rate and rhythm. ABDOMEN: Soft, no tenderness. No guarding. No rigidity. EXTREMITIES: No edema of the feet. SKIN: No rash or mass palpable. NEUROLOGICAL: Patient is awake, alert, oriented times three. Mood and affect normal. LABS: Hemoglobin 15.1, white count 9.4, BUN of 20, creatinine 0.66. Urine is positive. KUB x- rays did not show any acute abnormality. Ultrasound of the kidney no hydronephrosis. DIAGNOSTIC IMPRESSION AND PLAN: 1. Patient admitted to the hospital with urinary frequency and suprapubic discomfort. No nausea, no vomiting. With concern for UTI, failing outpatient oral Keflex and Levaquin therapy in this patient who does have a history of recurrent urinary tract infection secondary to ESBL to be the likely pathogen. 2. Patient does have MULTIPLE ANTIBIOTIC ALLERGIES that will limit the number of antibiotics safe to use. 3. high risk of nephrotoxicity from the Gentamicin. PLAN: 1. Discontinue gentamicin. 2. Start the patient on Invanz 1 g daily. 3. We will follow on her clinical condition and culture to further adjust medication if needed. Thank you for this consultation. We will follow this patient along with you. MMODL / IJN: [id number] /
[2020-11-27] MEDS: ATORVASTATIN 40 MG TAB PO SCH (20:12)
[2020-11-27] MEDS: METOPROLOL SUCCINATE (ER) 50 MG TAB.ER.24H PO SCH (20:12)
[2020-11-27 20:18] LABS: Glucose,Whole Blood 263 mg/dL (75-99)
--- NOTE | 2020-11-28 00:30 | P.HPIM ---
History of Present Illness H&P Date: 11/27/20 Chief Complaint: weakness Melissa Pena is a 70 yo F with PMH of recurrent UTI, adrenal insufficiency, T2DM, chronic migraine who presented to the ED with increasing nausea, vomiting, weakness and malaise over the past two weeks. She had been maintained on prophylactic keflex and did well for some time but states she saw her PCP last week and at that time was found to have a UTI. She was treated with levaquin as an outpatient but no improvement. She continued to feel malaised at home so came to the hospital. On presentation, vitals stable, low grade temp 99.4, WBC 9.4k, UA positive. Review of Systems All systems: negative Constitutional: Reports chronic headaches, Reports malaise, Reports sweats, Rep orts weakness, Denies chills, Denies fever Eyes: denies blurred vision, denies pain Ears, nose, mouth and throat: Denies headache, Denies sore throat Cardiovascular: Denies chest pain, Denies shortness of breath Respiratory: Denies cough Gastrointestinal: Denies abdominal pain, Denies diarrhea, Denies nausea, Denies vomiting Genitourinary: Reports as per HPI, Reports dysuria, Denies hematuria Musculoskeletal: Denies myalgias Integumentary: Denies pruritus, Denies rash Neurological: Denies numbness, Denies weakness Psychiatric: Denies anxiety, Denies depression Endocrine: Denies fatigue, Denies weight change Past Medical History Past Medical History: Diabetes Mellitus, Deep Vein Thrombosis (DVT), Fibromyalgia, Hyperlipidemia, Hypertension, Osteoarthritis (OA), Pneumonia, Shanna l Disease, Sleep Apnea/CPAP/BIPAP, Vascular Disorder Additional Past Medical History / Comment(s): Pt recently admitted to [facility] On 02/23/20 with complicated UTI/migraine/nausea and vomiting. 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, DVT R calf in 1976, cardiac murmur, occipital neuraligia, balance issues-has narrowing of vessels "in the back of my head", vertigo, varicosities, states rt shoulder torn rotator cuff History of Any Multi-Drug Resistant Organisms: ESBL, MRSA, VRE Date of last positivie culture/infection: 04/22/20 ESBL; 03/10/11 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 MDRO Source:: ESBL URINE; MRSA 4th rt TOE VRE URINE Past Surgical History: Appendectomy, Back Surgery, Bladder Surgery, Breast Surgery, Cholecystectomy, Heart Catheterization, Hysterectomy, Orthopedic Surgery, Tonsillectomy Additional Past Surgical History / Comment(s): Lumbar fusions, bladder suspension, occipital nerve blocks, 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, R wrist/elbow nerve repair, bone removed R shoulder, 4th toe R foot partial amputation, bilateral feet/bunionectomies, R knee arthroscopies, R orbit decompression with ethmoidectomy and eyelid lift, EGD, colonoscopies, cystocopies, lithotripsy/stents, bilateral breast reduction, bilateral cataract removals, parathyroid surgery - April 2019, pain clinic procedures Past Anesthesia/Blood Transfusion Reactions: No Reported Reaction Additional Past Anesthesia/Blood Transfusion Reaction / Comment(s): never recieved blood Past Psychological History: Depression Additional Psychological History / Comment(s): Pt resides with her spouse. She uses a walker. She normally drives. She has a nebulizer, cpap, bsc, shower chair, bp machine, dexcom monitor system for her bs. She has [facility] home care. Smoking Status: Never smoker Past Alcohol Use History: None Reported Additional Past Alcohol Use History / Comment(s): no alcohol Past Drug Use History: None Reported - Past Family History Father Family Medical History: Coronary Artery Disease (CAD), CVA/TIA, Diabetes Mellitus, Myocardial Infarction (OR), Pneumonia Additional Family Medical History / Comment(s): Father at the age of 78yrs from OR and pneumonia. Mother Family Medical History: Cancer Additional Family Medical History / Comment(s): Mother had uterine cancer. She recently at the age of 96yrs old from [employer]. Medications and Allergies Home Medications Medication Instructions Recorded Confirmed Type Cholecalciferol [Vitamin D3 (25 25 mcg PO DAILY 12/01/14 11/26/20 History Mcg = 1000 Iu)] Metoprolol Succinate (ER) [Toprol 50 mg PO HS 07/06/17 11/26/20 History XL] Meclizine [Antivert] 25 mg PO QID PRN 11/26/17 11/26/20 History Aspirin 81 mg PO DAILY #0 07/02/18 11/26/20 Rx Ferrous Sulfate [Iron (65 MG 325 mg PO DAILY 10/08/18 11/26/20 History Elemental)] Folic Acid 0.4 mg PO DAILY 10/08/18 11/26/20 History L.acidoph,Paracasei, B.lactis 2 cap PO BID 10/08/18 11/26/20 History [Probiotic] Melatonin 5 mg PO HS PRN 10/08/18 11/26/20 History Multivitamins, Thera Liquid 30 ml PO DAILY 10/08/18 11/26/20 History [Theragran Liquid (formulary)] Potassium 99 mg PO DAILY 10/08/18 11/26/20 History Thiamine [Vitamin B-1] 100 mg PO DAILY 10/08/18 11/26/20 History Vitamin B-Complex Drops 1 ml PO BID 10/08/18 11/26/20 History Atorvastatin [Lipitor] 40 mg PO HS #30 tab 11/16/18 11/26/20 Rx Venlafaxine HCl [Effexor XR] 75 mg PO DAILY 11/08/19 11/26/20 History Magnesium Oxide [Mag-Ox] 400 mg PO DAILY 12/06/19 11/26/20 History Gabapentin [Neurontin] 100 mg PO TID #9 cap 03/24/20 11/26/20 Rx HYDROcodone/APAP 10-325MG [Dawson 1 tab PO QID PRN 04/16/20 11/26/20 History 10-325] Cephalexin [Keflex] 250 mg PO HS #30 cap 04/23/20 11/26/20 Rx C,E,Zinc,Copper 11/Ogsps5u/Lut 1 cap PO DAILY 06/25/20 11/26/20 History [Ocuvite Adult 50 Plus Softgel] Cyanocobalamin (Vitamin B-12) 1,000 mcg PO DAILY 06/25/20 11/26/20 History [Vitamin B-12] Ondansetron HCl [Zofran] 4 mg PO Q6H PRN 06/25/20 11/26/20 History Spironolactone 50 mg PO DAILY 06/25/20 11/26/20 History Vitamin E 400 unit PO DAILY 06/25/20 11/26/20 History lisinopriL 40 mg PO DAILY 06/25/20 11/26/20 History Brimonidine Tartrate [Alphagan P 1 drop RIGHT EYE BID 11/26/20 11/26/20 History 0.2% Ophth Soln] Butalb/APAP/Caff 50-325-40Mg 1 tab PO TID PRN 11/26/20 11/26/20 History [Fioricet 50-325-40] Cholestyramine (with Sugar) 4 gm PO DAILY 11/26/20 11/26/20 History [Questran Packet] Cranberry [id number] Cap 1 cap PO BID 11/26/20 11/26/20 History Estrogens, Conjugated Cream 1 applicator VAGINAL DAILY 11/26/20 11/26/20 History [Premarin Cream] Glucagon [Gvoke Syringe] 1 mg SQ ONCE PRN 11/26/20 11/26/20 History Hydrocortisone [Cortef] 5 mg PO HS 11/26/20 11/26/20 History Hydrocortisone [Cortef] 10 mg PO DAILY@1200 11/26/20 11/26/20 History Hydrocortisone [Cortef] 15 mg PO DAILY 11/26/20 11/26/20 History Insulin Aspart [NovoLOG Flexpen] 11 units SQ AC-BRKFST 11/26/20 11/26/20 History Insulin Aspart [NovoLOG Flexpen] 20 units SQ AC-LUNCH 11/26/20 11/26/20 History Insulin Aspart [NovoLOG Flexpen] 26 unit SQ AC-SUPPER 11/26/20 11/26/20 History Insulin Aspart [NovoLOG Flexpen] See Protocol SQ AC-TID 11/26/20 11/26/20 History Insulin Glargine,Hum.rec.anlog 26 unit SQ DAILY@1000 11/26/20 11/26/20 History [Lantus Solostar] Metoclopramide HCl [Reglan] 5 mg PO TID PRN 11/26/20 11/26/20 History Nystatin 1 applic TOPICAL DAILY PRN 11/26/20 11/26/20 History Pantoprazole Sodium [Protonix] 40 mg PO DAILY 11/26/20 11/26/20 History Promethazine HCl [Phenergan Syrup] 6.25 mg PO Q6H PRN 11/26/20 11/26/20 History Allergies Allergy/AdvReac Type Severity Reaction Status Date / Time butorphanol tartrate Allergy BLISTERS Verified 11/26/20 14:30 [From Stadol] IN MOUTH ceftriaxone [From Rocephin] Allergy Unknown Verified 11/26/20 14:30 clarithromycin [From Biaxin] Allergy Rash/Hives Verified 11/26/20 14:30 clindamycin Allergy Unknown Verified 11/26/20 14:30 codeine Allergy Rash/Hives Verified 11/26/20 14:30 ergotamine tartrate Allergy Unknown Verified 11/26/20 14:30 [From Cafergot] erythromycin base Allergy RASH, GI Verified 11/26/20 14:30 [From E-Mycin] SYMPTOMS ketorolac tromethamine Allergy Rash/Hives Verified 11/26/20 14:30 [From Toradol] liraglutide [From Victoza] Allergy Rash/Hives Verified 11/26/20 14:30 morphine Allergy Rash/Hives Verified 11/26/20 14:30 Penicillins Allergy Rash/Hives Verified 11/26/20 14:30 pentazocine lactate Allergy SEVERE Verified 11/26/20 14:30 [From Talwin] BLISTERS IN MOUTH pregabalin [From Lyrica] Allergy Rash/Hives Verified 11/26/20 14:30 propoxyphene HCl Allergy Rash/Hives Verified 11/26/20 14:30 [From Darvon] Sulfa (Sulfonamide Allergy Rash/Hives Verified 11/26/20 14:30 Antibiotics) tramadol Allergy Unknown Verified 11/26/20 14:30 monosodium glutamate [MSG] AdvReac Nausea & Verified 11/26/20 14:30 Vomiting nalbuphine HCl [From Nubain] AdvReac Nausea & Verified 11/26/20 14:30 Vomiting Physical Exam Vitals: Vital Signs Temp Pulse Resp BP BP Pulse Ox 11/27/20 18:57 98.7 F 75 18 107/68 95 11/27/20 15:00 98.2 F 67 18 126/68 95 11/27/20 07:00 98.7 F 69 18 153/80 94 L 11/27/20 02:00 99.3 F 94 16 115/77 94 L Intake and Output 11/27/20 11/27/20 11/28/20 14:59 22:59 06:59 Intake Total 300 Balance 300 Intake: Intake, IV Titration 300 Amount Sodium Chloride 0.9% 1, 300 000 ml @ 20 mls/hr IV . Q24H [facility] Rx#:[id number] Other: Voiding Method Bedside Commode Bedside Commode # Voids 1 # Bowel Movements 1 General: well nourished, well developed, NAD. Vitals reviewed Eyes: PERRL, EOMI, conjunctiva normal HENT: normocephalic, mucus membranes moist Neck: supple, no JVD Lungs: normal respiratory effort, no wheezes or rales CV: Regular rate and rhythm, no murmur. Peripheral pulses 2+ Abdomen: soft, nondistended, no organomegaly Lymph: no cervical or axillary LAD Skin: warm and dry. Neuro: A&Ox3, normal mood and affect Results CBC & Chem 7: 11/26/20 13:31 11/26/20 13:31 Labs: Abnormal Lab Results - Last 24 Hours (Table) 11/27/20 11/27/20 11/27/20 Range/Units 07:52 11:39 17:18 POC Glucose (mg/dL) 218 H 240 H 253 H (75-99) mg/dL 11/27/20 Range/Units 20:17 POC Glucose (mg/dL) 263 H (75-99) mg/dL Thrombosis Risk Factor Assmnt - Choose All That Apply Each Risk Factor Represents 2 Points: Age 61-74 years Thrombosis Risk Factor Assessment Total Risk Factor Score: 2 Thrombosis Risk Factor Assessment Level: Low Risk Assessment and Plan (1) Complicated UTI (urinary tract infection) Current Visit: Yes Status: Acute Code(s): N39.0 - URINARY TRACT INFECTION, SITE NOT SPECIFIED SNOMED Code(s): 83463214 (2) UTI due to extended-spectrum beta lactamase (ESBL) producing Escherichia coli Current Visit: No Status: Acute Code(s): N39.0 - URINARY TRACT INFECTION, SITE NOT SPECIFIED; B96.29 - OTH ESCHERICHIA COLI THE CAUSE OF DISEASES CLASSD ELSWHR; Z16.12 - EXTENDED SPECTRUM BETA LACTAMASE (ESBL) RESISTANCE SNOMED Code(s): 256496681 (3) Adrenal insufficiency Current Visit: No Status: Chronic Code(s): E27.40 - UNSPECIFIED ADRENOCORTICAL INSUFFICIENCY SNOMED Code(s): 030397695 (4) DM type 2 (diabetes mellitus, type 2) Current Visit: No Status: Chronic Code(s): E11.9 - TYPE 2 DIABETES MELLITUS WITHOUT COMPLICATIONS SNOMED Code(s): 98432656 Plan: 1. Complicated UTI, history of ESBL VRE. Concern for same, failed outpatient keflex and levaquin. Admit and consult ID for abx recommendation 2. Adrenal insufficiency. Continue home cortef 3. T2DM. Continue levemir, sliding scale insulin 4. Chronic migraine. Chronic neck pain. Continue with Dawson and gabapentin 5. CAD. continue ASA, lipitor, metoprolol
[2020-11-28] MEDS: HYDROmorphone 0.5 MG/0.5 ML SYRINGE IVP PRN ×6 (03:23→22:38)
[2020-11-28 04:11] LABS: African American GFR (CKD) >90 (>60 ml/min/1.73 sqM); Non-African American GFR(CKD) 87 (>60 ml/min/1.73 sqM)
[2020-11-28] MEDS: HYDROCORTISONE SUCCINATE 100 MG/2 ML VIAL IV SCH ×3 (05:50→20:57)
[2020-11-28] MEDS ORDERED: GENTAMICIN 270 MG in SODIUM CHLORIDE 0.9% 100 ML IVPB SCH (06:00)
[2020-11-28] MEDS: ONDANSETRON 4 MG/2 ML VIAL IVP PRN (07:11)
[2020-11-28] MEDS: SODIUM CHLORIDE 0.9% 1,000 ML IV SCH (07:13)
[2020-11-28 07:33] LABS: Glucose,Whole Blood 176 mg/dL (75-99)
[2020-11-28] MEDS: INSULIN ASPART (NovoLOG) 100 UNIT/ML VIAL SQ SCH ×4 (08:34→20:21)
[2020-11-28] MEDS: ASPIRIN 81 MG PO SCH (08:37)
[2020-11-28] MEDS: BRIMONIDINE TARTRATE 0.2% DROPS 5 ML BTL RIGHT EYE SCH ×2 (08:37→19:17)
[2020-11-28] MEDS: CHOLESTYRAMINE (WITH SUGAR) 4 GM PACKET PO SCH ×2 (08:38→10:24)
[2020-11-28] MEDS: GABAPENTIN 100 MG CAP PO SCH ×3 (08:38→20:57)
[2020-11-28] MEDS: ERTAPENEM 1 GM in SODIUM CHLORIDE 0.9% 50 ML IVPB SCH (08:38)
[2020-11-28] MEDS: SPIRONOLACTONE 25 MG TAB PO SCH (08:38)
[2020-11-28] MEDS: PANTOPRAZOLE 40 MG/10 ML VIAL IV SCH (08:39)
[2020-11-28] MEDS: POTASSIUM CHLORIDE ER 10 MEQ TAB.ER.PRT PO SCH (09:32)
[2020-11-28] MEDS: HYDROcodone/APAP 10-325MG 1 EACH TAB PO SCH ×4 (09:32→20:57)
[2020-11-28] MEDS: INSULIN DETEMIR (LEVEMIR) 100 UNIT/ML SYR SQ SCH (09:33)
[2020-11-28] MEDS: VENLAFAXINE HCL ER 75 MG CAP PO SCH (09:33)
[2020-11-28] MEDS: lisinopriL 20 MG TAB PO SCH (09:33)
[2020-11-28 12:09] LABS: Glucose,Whole Blood 203 mg/dL (75-99)
--- NOTE | 2020-11-28 14:07 | P.PN ---
Subjective 70-year-old female with history of ESBL UTI and failed outpatient therapy with Keflex, he is admitted for urinary tract infection and sepsis secondary to UTI. So far urine cultures are negative and patient is presently on ertapenem. As patient was partially treated with other antibiotics urine cultures may not turn positive at all. Constitutional: Denied any fatigue denied any fever. Cardio vascular: denied any chest pain, palpitations Gastrointestinal denied any nausea vomiting Pulmonary: Denied any shortness of breath cough Neurologic denied any new focal deficits All inpatient medications were reviewed and appropriate changes in these medications as dictated in the interval history and assessment and plan. Objective - Vital Signs Vital signs: Vital Signs Temp 98.8 F 11/28/20 07:00 Pulse 69 11/28/20 09:34 Resp 16 11/28/20 08:00 BP 116/58 11/28/20 09:34 Pulse Ox 93 L 11/28/20 07:00 Intake & Output 11/27/20 11/28/20 11/28/20 18:59 06:59 18:59 Intake Total 300 0 Balance 300 0 Intake: Intake, IV Titration 300 Amount Sodium Chloride 0.9% 1, 300 000 ml @ 20 mls/hr IV . Q24H COUNT INCLUDES THE [facility] Rx#:[id number] Oral 0 Other: Voiding Method Bedside Commode Bedside Commode Bedside Commode # Voids 2 3 1 # Bowel Movements 1 - Exam PHYSICAL EXAMINATION: GENERAL: The patient is alert and oriented x3, not in any acute distress. Well developed, well nourished. HEENT: Pupils are round and equally reacting to light. EOMI. No scleral icterus. No conjunctival pallor. Normocephalic, atraumatic. No pharyngeal erythema. No thyromegaly. CARDIOVASCULAR: S1 and S2 present. No murmurs, rubs, or gallops. PULMONARY: Chest is clear to auscultation, no wheezing or crackles. ABDOMEN: Soft, nontender, nondistended, normoactive bowel sounds. No palpable organomegaly. MUSCULOSKELETAL: No joint swelling or deformity. EXTREMITIES: No cyanosis, clubbing, or pedal edema. NEUROLOGICAL: Gross neurological examination did not reveal any focal deficits. SKIN: No rashes. - Labs CBC & Chem 7: 11/26/20 13:31 11/28/20 03:17 Labs: Abnormal Lab Results - Last 24 Hours (Table) 0611/27/20 11/28/20 Range/Units 17:18 20:17 07:32 POC Glucose (mg/dL) 253 H 263 H 176 H (75-99) mg/dL 11/28/20 Range/Units 12:08 POC Glucose (mg/dL) 203 H (75-99) mg/dL Assessment and Plan Plan: -Urinary tract infection possibility of ESBL E. coli: Patient is being continued on ertapenem infectious disease evaluated the patient -Type 2 diabetes mellitus: Patient will be continued on his home regimen monitor blood sugars titration depending on the blood sugars present. It to be controlled -History of adrenal insufficiency continue with hydrocortisone -Hypertension continue with lisinopril Heparin fibromyalgia -History of sleep apnea -Peripheral vascular disease -Hyperlipidemia -History of DVT in the past presently not on any anticoagulation -DVT prophylaxis with Lovenox
[2020-11-28 17:14] LABS: Glucose,Whole Blood 121 mg/dL (75-99)
[2020-11-28] MEDS: METOPROLOL SUCCINATE (ER) 50 MG TAB.ER.24H PO SCH (19:17)
[2020-11-28] MEDS: ATORVASTATIN 40 MG TAB PO SCH (19:17)
[2020-11-28 20:18] LABS: Glucose,Whole Blood 328 mg/dL (75-99)
--- NOTE | 2020-11-29 00:15 | PN ---
PROGRESS NOTE DATE OF SERVICE: 11/28/2020 REASON FOR FOLLOWUP: Urinary tract infection. INTERVAL HISTORY: Patient is afebrile. The patient is breathing comfortably. Patient denies any further nausea, vomiting. No chest pain, shortness of breath or cough and no diarrhea. PHYSICAL EXAMINATION: Blood pressure 92/55 with a pulse of 73, temperature 98.4. She is 93% on room air. General description is an elderly female lying in bed in no distress. Respiratory system: Unlabored breathing, clear to auscultation anteriorly. Heart S1, S2. Regular rate and rhythm. ABDOMEN: Soft, no tenderness. LABS: No new labs have been obtained today. Cultures are currently pending. DIAGNOSTIC IMPRESSION AND PLAN: Patient with recurrent urinary tract infection in this patient with history of ESBL. Repeat urine currently pending. Continue with Ertapenem and monitor clinical course closely. MMODL / IJN: [id number] /
[2020-11-29] MEDS: HYDROmorphone 0.5 MG/0.5 ML SYRINGE IVP PRN ×6 (02:36→19:34)
[2020-11-29] MEDS: HYDROCORTISONE SUCCINATE 100 MG/2 ML VIAL IV SCH ×3 (05:56→20:41)
[2020-11-29 07:42] LABS: Glucose,Whole Blood 149 mg/dL (75-99)
[2020-11-29] MEDS: ASPIRIN 81 MG PO SCH (09:30)
[2020-11-29] MEDS: SPIRONOLACTONE 25 MG TAB PO SCH (09:30)
[2020-11-29] MEDS: ENOXAPARIN 40 MG/0.4 ML SYRINGE SQ SCH (09:30)
[2020-11-29] MEDS: BRIMONIDINE TARTRATE 0.2% DROPS 5 ML BTL RIGHT EYE SCH ×2 (09:30→19:35)
[2020-11-29] MEDS: POTASSIUM CHLORIDE ER 10 MEQ TAB.ER.PRT PO SCH (09:31)
[2020-11-29] MEDS: GABAPENTIN 100 MG CAP PO SCH ×3 (09:31→20:42)
[2020-11-29] MEDS: CHOLESTYRAMINE (WITH SUGAR) 4 GM PACKET PO SCH (09:31)
[2020-11-29] MEDS: HYDROcodone/APAP 10-325MG 1 EACH TAB PO SCH ×4 (09:32→20:42)
[2020-11-29] MEDS: VENLAFAXINE HCL ER 75 MG CAP PO SCH (09:33)
[2020-11-29] MEDS: INSULIN DETEMIR (LEVEMIR) 100 UNIT/ML SYR SQ SCH (09:34)
[2020-11-29] MEDS: INSULIN ASPART (NovoLOG) 100 UNIT/ML VIAL SQ SCH ×4 (09:34→20:42)
[2020-11-29] MEDS: ERTAPENEM 1 GM in SODIUM CHLORIDE 0.9% 50 ML IVPB SCH (09:35)
[2020-11-29 09:42] LABS: HCT 40.3 % (37.2-46.3); HGB 12.9 g/dL (12.0-15.0); MCH 30.4 pg (27.0-32.0); MCV 94.8 fL (80.0-97.0); Mean Platelet Volume 10.3 fL (9.5-12.2); Platelet Count 259 X 10*3/uL (140-440); RBC 4.25 X 10*6/uL (4.10-5.20); RDW 13.9 % (11.5-14.5); WBC 8.67 X 10*3/uL (4.50-10.00)
[2020-11-29] MEDS ORDERED: HYDROcodone/APAP 7.5-325MG 1 EACH TAB PO PRN (09:45)
[2020-11-29] MEDS: PANTOPRAZOLE 40 MG TABLET PO SCH (09:46)
[2020-11-29 09:59] LABS: Anion Gap 7.5 mmol/L (4.00-12.00); BUN/Creat Ratio 27.14 Ratio (12.00-20.00); Calcium 8.6 mg/dL (8.7-10.3); Carbon Dioxide 27.5 mmol/L (21.6-31.8); Non-African American GFR(CKD) 87.2 (60.0-200.0); Potassium 4.3 mmol/L (3.5-5.5)
--- NOTE | 2020-11-29 11:34 | P.PN ---
Subjective 70-year-old female with history of ESBL UTI and failed outpatient therapy with Keflex, he is admitted for urinary tract infection and sepsis secondary to UTI. So far urine cultures are negative and patient is presently on ertapenem. As patient was partially treated with other antibiotics urine cultures may not turn positive at all. 11/29/2020 Patient urine cultures also were negative. Patient is still complaining of burning sensation upon urination. No fever. No leukocytosis. Constitutional: Denied any fatigue denied any fever. Cardio vascular: denied any chest pain, palpitations Gastrointestinal denied any nausea vomiting Pulmonary: Denied any shortness of breath cough Neurologic denied any new focal deficits All inpatient medications were reviewed and appropriate changes in these medications as dictated in the interval history and assessment and plan. Objective - Vital Signs Vital signs: Vital Signs Temp 98.0 F 11/29/20 07:00 Pulse 51 L 11/29/20 07:00 Resp 17 11/29/20 08:00 BP 117/66 11/29/20 07:00 Pulse Ox 94 L 11/29/20 07:00 Intake & Output 11/28/20 11/29/20 11/29/20 18:59 06:59 18:59 Intake Total 200 230 Output Total 500 Balance 200 -270 Intake: IV 50 Ertapenem 1 gm In Sodium 50 Chloride 0.9% 50 ml @ 100 mls/hr IVPB DAILY [facility] Rx #:[id number] Oral 200 180 Output: Urine 500 Other: Voiding Method Bedside Commode Bedside Commode Bedside Commode # Voids 1 1 - Exam PHYSICAL EXAMINATION: GENERAL: The patient is alert and oriented x3, not in any acute distress. Well developed, well nourished. HEENT: Pupils are round and equally reacting to light. EOMI. No scleral icterus. No conjunctival pallor. Normocephalic, atraumatic. No pharyngeal erythema. No thyromegaly. CARDIOVASCULAR: S1 and S2 present. No murmurs, rubs, or gallops. PULMONARY: Chest is clear to auscultation, no wheezing or crackles. ABDOMEN: Soft, nontender, nondistended, normoactive bowel sounds. No palpable organomegaly. MUSCULOSKELETAL: No joint swelling or deformity. EXTREMITIES: No cyanosis, clubbing, or pedal edema. NEUROLOGICAL: Gross neurological examination did not reveal any focal deficits. SKIN: No rashes. - Labs CBC & Chem 7: 11/29/20 06:32 11/29/20 06:32 Labs: Abnormal Lab Results - Last 24 Hours (Table) 11/28/20 11/28/20 11/28/20 Range/Units 12:08 17:12 20:17 BUN/Creatinine Ratio (12.00-20.00) Ratio Glucose (70-110) mg/dL POC Glucose (mg/dL) 203 H 121 H 328 H (75-99) mg/dL Calcium (8.7-10.3) mg/dL 11/29/20 11/29/20 Range/Units 06:32 07:41 BUN/Creatinine Ratio 27.14 H (12.00-20.00) Ratio Glucose 134 H (70-110) mg/dL POC Glucose (mg/dL) 149 H (75-99) mg/dL Calcium 8.6 L (8.7-10.3) mg/dL Assessment and Plan Plan: -Urinary tract infection possibility of ESBL E. coli: Patient is being continued on ertapenem infectious disease evaluated the patient -Type 2 diabetes mellitus: Patient will be continued on his home regimen monitor blood sugars titration depending on the blood sugars present. It to be controlled. Blood sugars appear to be better controlled today -History of adrenal insufficiency continue with hydrocortisone -Hypertension continue with lisinopril Heparin fibromyalgia -History of sleep apnea -Peripheral vascular disease -Hyperlipidemia -History of DVT in the past presently not on any anticoagulation -DVT prophylaxis with Lovenox
[2020-11-29 11:47] LABS: Glucose,Whole Blood 255 mg/dL (75-99)
[2020-11-29] MEDS: lisinopriL 20 MG TAB PO SCH (12:21)
[2020-11-29] MEDS: SODIUM CHLORIDE 0.9% 1,000 ML IV SCH (12:24)
[2020-11-29 16:32] LABS: Appearance,Urine Clear (Clear); Bilirubin,Urine Negative (Negative); Blood,Urine Negative (Negative); Color,Urine Light Yellow; Glucose,Urine (UA) 1+ (Negative); Hyaline Casts,Urine 1 /lpf (0-2); Ketones,Urine Negative (Negative); Leukocyte Esterase,Urine Small (Negative); Nitrite,Urine Negative (Negative); Protein,Urine Negative (Negative); RBC,Urine 4 /hpf (0-5); Specific Gravity,Urine 1.008 (1.001-1.035); Squamous Epithelial Cell,Urine 2 /hpf (0-4); Urobilinogen,Urine <2.0 mg/dL (<2.0); WBC,Urine 12 /hpf (0-5)
[2020-11-29 17:14] LABS: Glucose,Whole Blood 126 mg/dL (75-99)
--- NOTE | 2020-11-29 19:22 | PN ---
PROGRESS NOTE DATE OF SERVICE: 11/29/2020 REASON FOR FOLLOWUP: Urinary tract infection. INTERVAL HISTORY: Patient is afebrile. The patient is feeling better. The patient denies any further nausea or vomiting. No chest pain, shortness of breath. No cough. No abdominal pain. Still has some burning of urine and wants the diet to be advanced. PHYSICAL EXAMINATION: Blood pressure 114/62 with a pulse of 73, temperature 98.9. She is 97% on room air. General description: The patient is an elderly female up in the bed in no distress. Respiratory system: Unlabored breathing. Clear to auscultation anteriorly. Heart S1, S2. Regular rate and rhythm. Abdomen soft. No tenderness. Extremities: No edema of the feet. LABS: Hemoglobin is 12.1, white count 8.7, BUN of 19, creatinine 0.7. DIAGNOSTIC IMPRESSION AND PLAN: 1. Patient admitted to the hospital with nausea, vomiting, and did have urinary symptoms with concern for a symptomatic urinary tract infection. Did have mildly positive, unfortunately cultures were not done per [facility] policy. Still having some urinary symptoms. Will repeat a UA which if has normalized, antibiotic can be safely discontinued. 2. Patient's gastrointestinal symptoms have resolved and wants the diet to be advanced and should be advanced as tolerated. MMODL / IJN: [id number] /
[2020-11-29] MEDS: METOPROLOL SUCCINATE (ER) 50 MG TAB.ER.24H PO SCH (19:34)
[2020-11-29] MEDS: ATORVASTATIN 40 MG TAB PO SCH (19:34)
[2020-11-29 20:22] LABS: Glucose,Whole Blood 298 mg/dL (75-99)
[2020-11-30] MEDS: HYDROmorphone 0.5 MG/0.5 ML SYRINGE IVP PRN ×5 (00:35→16:57)
[2020-11-30] MEDS: HYDROCORTISONE SUCCINATE 100 MG/2 ML VIAL IV SCH ×2 (04:44→13:45)
[2020-11-30 07:08] LABS: Glucose,Whole Blood 170 mg/dL (75-99)
[2020-11-30 08:48] LABS: HCT 38.5 % (37.2-46.3); HGB 12.2 g/dL (12.0-15.0); MCHC 31.7 g/dL (32.0-37.0); MCV 94.6 fL (80.0-97.0); Mean Platelet Volume 10.5 fL (9.5-12.2); Platelet Count 238 X 10*3/uL (140-440); RBC 4.07 X 10*6/uL (4.10-5.20); RDW 13.7 % (11.5-14.5); WBC 8.05 X 10*3/uL (4.50-10.00)
[2020-11-30] MEDS: ASPIRIN 81 MG PO SCH (09:07)
[2020-11-30] MEDS: INSULIN ASPART (NovoLOG) 100 UNIT/ML VIAL SQ SCH ×4 (09:07→17:59)
[2020-11-30] MEDS: lisinopriL 20 MG TAB PO SCH (09:10)
[2020-11-30] MEDS: BRIMONIDINE TARTRATE 0.2% DROPS 5 ML BTL RIGHT EYE SCH (09:10)
[2020-11-30] MEDS: SPIRONOLACTONE 25 MG TAB PO SCH (09:10)
[2020-11-30] MEDS: POTASSIUM CHLORIDE ER 10 MEQ TAB.ER.PRT PO SCH (09:10)
[2020-11-30] MEDS: INSULIN DETEMIR (LEVEMIR) 100 UNIT/ML SYR SQ SCH (09:10)
[2020-11-30] MEDS: PANTOPRAZOLE 40 MG TABLET PO SCH (09:10)
[2020-11-30] MEDS: ERTAPENEM 1 GM in SODIUM CHLORIDE 0.9% 50 ML IVPB SCH (09:11)
[2020-11-30] MEDS: CHOLESTYRAMINE (WITH SUGAR) 4 GM PACKET PO SCH (09:11)
[2020-11-30] MEDS: ENOXAPARIN 40 MG/0.4 ML SYRINGE SQ SCH (09:11)
[2020-11-30] MEDS: VENLAFAXINE HCL ER 75 MG CAP PO SCH (09:12)
[2020-11-30 09:13] LABS: African American GFR (CKD) 106.3 (60.0-200.0); Anion Gap 8.8 mmol/L (4.00-12.00); BUN/Creat Ratio 28.33 Ratio (12.00-20.00); Calcium 8.2 mg/dL (8.7-10.3); Carbon Dioxide 26.2 mmol/L (21.6-31.8); Non-African American GFR(CKD) 91.7 (60.0-200.0); Potassium 4.3 mmol/L (3.5-5.5)
[2020-11-30] MEDS: GABAPENTIN 100 MG CAP PO SCH ×2 (09:14→16:05)
[2020-11-30 12:01] LABS: Glucose,Whole Blood 246 mg/dL (75-99)
[2020-11-30] MEDS: HYDROcodone/APAP 10-325MG 1 EACH TAB PO SCH ×3 (12:24→18:00)
[2020-11-30] MEDS: SODIUM CHLORIDE 0.9% 1,000 ML IV SCH (13:46)
--- NOTE | 2020-11-30 14:21 | P.PN ---
Subjective Progress Note Date: 11/30/20 This is a 70-year-old female admitted with sepsis secondary to recurrent UTI in a patient with history of ESBL UTI, failed outpatient treatment and multiple other medical issues. Patient maintained on ertapenem per ID. Apparently no urine culture collected on admission; urine culture collected last night, results pending. Complains of feeling weak with right flank pain .Afebrile, normal WBC. Denies nausea or vomiting, good diet intake. Hyperglycemic with sugars ranging 170s to 290s. Objective - Vital Signs Vital signs: Vital Signs Temp 98.6 F 11/30/20 07:00 Pulse 56 L 11/30/20 07:00 Resp 16 11/30/20 07:00 BP 153/78 11/30/20 07:00 Pulse Ox 98 11/30/20 07:00 Intake & Output 11/29/20 11/30/20 11/30/20 18:59 06:59 18:59 Intake Total 632 Output Total 500 Balance 132 Intake: IV 50 Ertapenem 1 gm In Sodium 50 Chloride 0.9% 50 ml @ 100 mls/hr IVPB DAILY [facility] Rx #:[id number] Oral 582 Output: Urine 500 Other: Voiding Method Bedside Commode Bedside Commode Bedside Commode # Voids 1 2 - Exam PHYSICAL EXAMINATION: GENERAL: alert and oriented x3, no acute distress. Eyes: PERRL, EOMI, conjunctiva normal HENT: normocephalic, mucus membranes moist Neck: supple, no JVD Lungs: normal respiratory effort, no wheezes or rales CV: Regular rate and rhythm, no murmur. Peripheral pulses 2+ Abdomen: soft, nondistended, no organomegaly, positive bowel sounds. Right flank pain. Skin: warm and dry, no rashes. Neuro: A&Ox3, normal mood and affect. No focal deficits. - Labs CBC & Chem 7: 11/30/20 05:52 11/30/20 05:52 Labs: Abnormal Lab Results - Last 24 Hours (Table) 11/29/20 11/29/20 11/29/20 Range/Units 16:21 17:13 20:21 RBC (4.10-5.20) X 10*6/uL MCHC (32.0-37.0) g/dL BUN/Creatinine Ratio (12.00-20.00) Ratio Glucose (70-110) mg/dL POC Glucose (mg/dL) 126 H 298 H (75-99) mg/dL Calcium (8.7-10.3) mg/dL Urine Glucose (UA) 1+ H (Negative) Ur Leukocyte Esterase Small H (Negative) Urine WBC 12 H (0-5) /hpf 11/30/20 11/30/20 11/30/20 Range/Units 05:52 05:52 07:01 RBC 4.07 L (4.10-5.20) X 10*6/uL MCHC 31.7 L (32.0-37.0) g/dL BUN/Creatinine Ratio 28.33 H (12.00-20.00) Ratio Glucose 177 H (70-110) mg/dL POC Glucose (mg/dL) 170 H (75-99) mg/dL Calcium 8.2 L (8.7-10.3) mg/dL Urine Glucose (UA) (Negative) Ur Leukocyte Esterase (Negative) Urine WBC (0-5) /hpf 11/30/20 Range/Units 12:01 RBC (4.10-5.20) X 10*6/uL MCHC (32.0-37.0) g/dL BUN/Creatinine Ratio (12.00-20.00) Ratio Glucose (70-110) mg/dL POC Glucose (mg/dL) 246 H (75-99) mg/dL Calcium (8.7-10.3) mg/dL Urine Glucose (UA) (Negative) Ur Leukocyte Esterase (Negative) Urine WBC (0-5) /hpf Assessment and Plan Assessment: 1. Complicated UTI, history of ESBL VRE. Concern for same, failed outpatient keflex and levaquin. 2. Adrenal insufficiency. 3. T2DM, hyperglycemic 4. Chronic migraine. Chronic neck pain. 5. CAD Plan: Continue on current medication regime ,monitoring and symptomatic treatment. Maintain ertapenem as per ID. Urine culture collected last night, results pending. Discharge planning in progress for tomorrow pending urine culture results, recommendations and clearance from infectious disease. The impression and plan of care has been dictated as directed. : I performed a history and examination of this patient, discussed the same with the dictator. I agree with the dictator's note ,documented as a scribe. Any additional findings or plans will be noted.
[2020-11-30 17:08] LABS: Glucose,Whole Blood 230 mg/dL (75-99)
[2020-11-30 18:59] LABS: Hemoglobin A1C 8.5 % (4.0-6.0)
--- NOTE | 2020-11-30 19:58 | PN ---
PROGRESS NOTE DATE OF SERVICE: 11/30/2020 REASON FOR FOLLOWUP: Urinary tract infection. INTERVAL HISTORY: Patient is afebrile. The patient is breathing comfortably. Patient denies any chest pain. No shortness of breath or cough. She denies nausea, vomiting. No abdominal pain. No diarrhea. PHYSICAL EXAMINATION: Blood pressure 159/77, pulse of 87, temperature 98.2. She is 95% on room air. General description is an elderly female lying in bed in no distress. Respiratory system: Unlabored breathing. Clear to auscultation anteriorly. Heart S1, S2. Regular rate and rhythm. ABDOMEN: Soft, no tenderness. EXTREMITIES: No edema of the feet. LABS: The patient did have improvement of UA from yesterday. This morning, slightly decreased white cell was 12, white count 8.5. DIAGNOSTIC IMPRESSION AND PLAN: Patient with recurrent urinary tract infection. Unfortunately urine culture not done on this admission, however has been repeated yesterday and will follow. Continue with Invanz. Continue supportive care. MMODL / IJN: [id number] /
[2020-11-30 20:03] LABS: Glucose,Whole Blood 294 mg/dL (75-99)
[2020-12-01] MEDS: HYDROmorphone 0.5 MG/0.5 ML SYRINGE IVP PRN ×7 (00:19→22:40)
[2020-12-01] MEDS: ATORVASTATIN 40 MG TAB PO SCH ×2 (00:20→21:42)
[2020-12-01] MEDS: METOPROLOL SUCCINATE (ER) 50 MG TAB.ER.24H PO SCH ×2 (00:20→21:43)
[2020-12-01] MEDS: GABAPENTIN 100 MG CAP PO SCH ×4 (00:20→22:40)
[2020-12-01] MEDS: HYDROCORTISONE SUCCINATE 100 MG/2 ML VIAL IV SCH ×4 (00:20→21:42)
[2020-12-01] MEDS: INSULIN ASPART (NovoLOG) 100 UNIT/ML VIAL SQ SCH ×8 (00:20→21:43)
[2020-12-01] MEDS: HYDROcodone/APAP 10-325MG 1 EACH TAB PO SCH ×5 (00:21→21:43)
[2020-12-01] MEDS: BRIMONIDINE TARTRATE 0.2% DROPS 5 ML BTL RIGHT EYE SCH ×3 (00:28→21:42)
[2020-12-01 07:46] LABS: Glucose,Whole Blood 251 mg/dL (75-99)
[2020-12-01] MEDS: CHOLESTYRAMINE (WITH SUGAR) 4 GM PACKET PO SCH (07:56)
[2020-12-01] MEDS: ERTAPENEM 1 GM in SODIUM CHLORIDE 0.9% 50 ML IVPB SCH (07:56)
[2020-12-01] MEDS: PANTOPRAZOLE 40 MG TABLET PO SCH (07:57)
[2020-12-01] MEDS: ENOXAPARIN 40 MG/0.4 ML SYRINGE SQ SCH (07:57)
[2020-12-01] MEDS: ASPIRIN 81 MG PO SCH (07:57)
[2020-12-01] MEDS: lisinopriL 20 MG TAB PO SCH (07:57)
[2020-12-01] MEDS: SPIRONOLACTONE 25 MG TAB PO SCH (07:57)
[2020-12-01] MEDS: POTASSIUM CHLORIDE ER 10 MEQ TAB.ER.PRT PO SCH (07:57)
[2020-12-01] MEDS: INSULIN DETEMIR (LEVEMIR) 100 UNIT/ML SYR SQ SCH (07:59)
[2020-12-01] MEDS: VENLAFAXINE HCL ER 75 MG CAP PO SCH (07:59)
[2020-12-01] MEDS ORDERED: diphenhydrAMINE 50 MG/ML 1 ML VIAL IVP STA (09:55)
[2020-12-01] MEDS ORDERED: ACETAMINOPHEN IV (For NPO) 1,000 MG in EMPTY BAG 1 BAG IVPB STA (09:55)
[2020-12-01] MEDS ORDERED: METOCLOPRAMIDE 5 MG/ML 2 ML VIAL IVP STA (09:56)
[2020-12-01] MEDS ORDERED: MAGNESIUM SULFATE-D5W PMX 1 GM in DEXTROSE/WATER 1 100ML.BAG IVPB ONE (10:00)
--- NOTE | 2020-12-01 10:49 | P.DS ---
Providers Date of admission: 11/28/20 07:50 Expected date of discharge: 12/01/20 Attending physician: Andrew Gonsales MD Consults: 11/26/20 14:41 Consult Physician Urgent Consulting Provider: Chalino Osman Consult Reason/Comments: Recurrent urinary tract infection Do you want consulting provider notified?: Yes Primary care physician: Andrew Gonsales MD Hospital Course: Final Diagnoses: 1. Complicated UTI, history of ESBL VRE. Concern for same, failed outpatient keflex and levaquin. 2. Adrenal insufficiency. 3. T2DM, hyperglycemic 4. Chronic migraine. Chronic neck pain. 5. CAD Hospital course:This is a 70-year-old female admitted with sepsis secondary to recurrent UTI in a patient with history of ESBL UTI, failed outpatient treatment and multiple other medical issues. Patient maintained on ertapenem per ID. Apparently no urine culture collected on admission; urine culture collected last night, results pending. Complains of feeling weak with right flank pain .Afe brile, normal WBC. Denies nausea or vomiting, good diet intake. Hyperglycemic with sugars ranging 170s to 290s. Evaluated by infectious disease. Maintained on ertapenem. Urine culture finalizing. Patient received migraine cocktail this morning. Right flank tenderness improving. Significant clinical improvement. Patient will be discharged home today in stable condition with guarded prognosis pending final urine culture results, DC recommendations and clearance from ID. The impression and plan of care has been dictated as directed. : I performed a history and examination of this patient, discussed the same with the dictator. I agree with the dictator's note ,documented as a scribe. Any additional findings or plans will be noted. Patient Condition at Discharge: Stable Plan - Discharge Summary Discharge Rx Participant: No New Discharge Prescriptions: Continue Cholecalciferol [Vitamin D3 (25 Mcg = 1000 Iu)] 25 mcg PO DAILY Metoprolol Succinate (ER) [Toprol XL] 50 mg PO HS Meclizine [Antivert] 25 mg PO QID PRN PRN Reason: Vertigo Aspirin 81 mg PO DAILY #0 Ferrous Sulfate [Iron (65 MG Elemental)] 325 mg PO DAILY Vitamin B-Complex Drops 1 ml PO BID Thiamine [Vitamin B-1] 100 mg PO DAILY Folic Acid 0.4 mg PO DAILY Multivitamins, Thera Liquid [Theragran Liquid (formulary)] 30 ml PO DAILY L.acidoph,Paracasei, B.lactis [Probiotic] 2 cap PO BID Melatonin 5 mg PO HS PRN PRN Reason: Insomnia Potassium 99 mg PO DAILY Atorvastatin [Lipitor] 40 mg PO HS #30 tab Venlafaxine HCl [Effexor XR] 75 mg PO DAILY Magnesium Oxide [Mag-Ox] 400 mg PO DAILY Gabapentin [Neurontin] 100 mg PO TID #9 cap HYDROcodone/APAP 10-325MG [Sawyer 10-325] 1 tab PO QID PRN PRN Reason: Pain lisinopriL 40 mg PO DAILY Spironolactone 50 mg PO DAILY C,E,Zinc,Copper 11/Qubaz0o/Lut [Ocuvite Adult 50 Plus Softgel] 1 cap PO DAILY Cyanocobalamin (Vitamin B-12) [Vitamin B-12] 1,000 mcg PO DAILY Vitamin E 400 unit PO DAILY Ondansetron HCl [Zofran] 4 mg PO Q6H PRN PRN Reason: Nausea Cholestyramine (with Sugar) [Questran Packet] 4 gm PO DAILY Cranberry [id number] Cap 1 cap PO BID Nystatin 1 applic TOPICAL DAILY PRN PRN Reason: Skin Irritation Brimonidine Tartrate [Alphagan P 0.2% Ophth Soln] 1 drop RIGHT EYE BID Promethazine HCl [Phenergan Syrup] 6.25 mg PO Q6H PRN PRN Reason: Nausea Butalb/APAP/Caff 50-325-40Mg [Fioricet 50-325-40] 1 tab PO TID PRN PRN Reason: Migraine Headache Insulin Aspart [NovoLOG Flexpen] 26 unit SQ AC-SUPPER Pantoprazole Sodium [Protonix] 40 mg PO DAILY Estrogens, Conjugated Cream [Premarin Cream] 1 applicator VAGINAL DAILY Glucagon [Gvoke Pfs 1-Pack Syringe] 1 mg SQ ONCE PRN PRN Reason: severe hypoglycemia Insulin Aspart [NovoLOG Flexpen] See Protocol SQ AC-TID Hydrocortisone [Cortef] 5 mg PO HS Hydrocortisone [Cortef] 10 mg PO DAILY@1200 Insulin Aspart [NovoLOG Flexpen] 11 units SQ AC-BRKFST Insulin Aspart [NovoLOG Flexpen] 20 units SQ AC-LUNCH Hydrocortisone [Cortef] 15 mg PO DAILY Metoclopramide HCl [Reglan] 5 mg PO TID PRN PRN Reason: Nausea Changed Insulin Glargine,Hum.rec.anlog [Lantus Solostar] 30 unit SQ DAILY@1000 #0 Discontinued Cephalexin [Keflex] 250 mg PO HS #30 cap Discharge Medication List Cholecalciferol [Vitamin D3 (25 Mcg = 1000 Iu)] 25 mcg PO DAILY 12/01/14 [History] Metoprolol Succinate (ER) [Toprol XL] 50 mg PO HS 07/06/17 [History] Meclizine [Antivert] 25 mg PO QID PRN 11/26/17 [History] Aspirin 81 mg PO DAILY #0 07/02/18 [Rx] Ferrous Sulfate [Iron (65 MG Elemental)] 325 mg PO DAILY 10/08/18 [History] Folic Acid 0.4 mg PO DAILY 10/08/18 [History] L.acidoph,Paracasei, B.lactis [Probiotic] 2 cap PO BID 10/08/18 [History] Melatonin 5 mg PO HS PRN 10/08/18 [History] Multivitamins, Thera Liquid [Theragran Liquid (formulary)] 30 ml PO DAILY 10/08/18 [History] Potassium 99 mg PO DAILY 10/08/18 [History] Thiamine [Vitamin B-1] 100 mg PO DAILY 10/08/18 [History] Vitamin B-Complex Drops 1 ml PO BID 10/08/18 [History] Atorvastatin [Lipitor] 40 mg PO HS #30 tab 11/16/18 [Rx] Venlafaxine HCl [Effexor XR] 75 mg PO DAILY 11/08/19 [History] Magnesium Oxide [Mag-Ox] 400 mg PO DAILY 12/06/19 [History] Gabapentin [Neurontin] 100 mg PO TID #9 cap 03/24/20 [Rx] HYDROcodone/APAP 10-325MG [Sawyer 10-325] 1 tab PO QID PRN 04/16/20 [History] C,E,Zinc,Copper 11/Yubea7s/Lut [Ocuvite Adult 50 Plus Softgel] 1 cap PO DAILY 06/25/20 [History] Cyanocobalamin (Vitamin B-12) [Vitamin B-12] 1,000 mcg PO DAILY 06/25/20 [History] Ondansetron HCl [Zofran] 4 mg PO Q6H PRN 06/25/20 [History] Spironolactone 50 mg PO DAILY 06/25/20 [History] Vitamin E 400 unit PO DAILY 06/25/20 [History] lisinopriL 40 mg PO DAILY 06/25/20 [History] Brimonidine Tartrate [Alphagan P 0.2% Ophth Soln] 1 drop RIGHT EYE BID 11/26/20 [History] Butalb/APAP/Caff 50-325-40Mg [Fioricet 50-325-40] 1 tab PO TID PRN 11/26/20 [History] Cholestyramine (with Sugar) [Questran Packet] 4 gm PO DAILY 11/26/20 [History] Cranberry [id number] Cap 1 cap PO BID 11/26/20 [History] Estrogens, Conjugated Cream [Premarin Cream] 1 applicator VAGINAL DAILY 11/26/20 [History] Glucagon [Gvoke Pfs 1-Pack Syringe] 1 mg SQ ONCE PRN 11/26/20 [History] Hydrocortisone [Cortef] 5 mg PO HS 11/26/20 [History] Hydrocortisone [Cortef] 10 mg PO DAILY@1200 11/26/20 [History] Hydrocortisone [Cortef] 15 mg PO DAILY 11/26/20 [History] Insulin Aspart [NovoLOG Flexpen] 11 units SQ AC-BRKFST 11/26/20 [History] Insulin Aspart [NovoLOG Flexpen] 20 units SQ AC-LUNCH 11/26/20 [History] Insulin Aspart [NovoLOG Flexpen] 26 unit SQ AC-SUPPER 11/26/20 [History] Insulin Aspart [NovoLOG Flexpen] See Protocol SQ AC-TID 11/26/20 [History] Metoclopramide HCl [Reglan] 5 mg PO TID PRN 11/26/20 [History] Nystatin 1 applic TOPICAL DAILY PRN 11/26/20 [History] Pantoprazole Sodium [Protonix] 40 mg PO DAILY 11/26/20 [History] Promethazine HCl [Phenergan Syrup] 6.25 mg PO Q6H PRN 11/26/20 [History] Insulin Glargine,Hum.rec.anlog [Lantus Solostar] 30 unit SQ DAILY@1000 #0 12/01/20 [Rx] Follow up Appointment(s)/Referral(s): Andrew Gonsales MD [Primary Care Provider] - 3 Days [facility], [NON-STAFF] - 1 Week [facility],Infusion [NON-STAFF] - 1 Week Activity/Diet/Wound Care/Special Instructions: Pending final urine culture results, final DC recommendations and clearance from ID
[2020-12-01 12:28] LABS: Glucose,Whole Blood 247 mg/dL (75-99)
[2020-12-01] MEDS: SODIUM CHLORIDE 0.9% 1,000 ML IV SCH (15:26)
[2020-12-01 16:08] VITALS: RESP 18
--- NOTE | 2020-12-01 17:38 | PN ---
PROGRESS NOTE DATE OF SERVICE: 12/01/2020 REASON FOR FOLLOWUP: Recurrent urinary tract infection. INTERVAL HISTORY: Patient is currently afebrile. Patient is breathing comfortably. Patient denies having any chest pain. No shortness of breath or cough. No nausea. No abdominal pain. Her ( ) has improved. PHYSICAL EXAMINATION: Blood pressure 129/76, pulse of 71, temperature 98.1. She is 96% on room air. General description is an elderly female lying in bed in no distress. Respiratory system: Unlabored breathing, clear to auscultation anteriorly. Heart S1, S2. Regular rate and rhythm. Abdomen soft, no tenderness. LABS: No new labs have been obtained today. Repeat urine culture so far negative. DIAGNOSTIC IMPRESSION AND PLAN: Patient with recurrent UTI failing outpatient on Levaquin therapy and concern for possible ( ) infection culture with no donation sample. Repeat cultures pending. Patient to continue with Invanz; however, if the repeat culture negative, no need for antibiotic on discharge as possible mild cystitis that has been adequately treated. MMODL / IJN: [id number] /
[2020-12-01 17:48] LABS: Glucose,Whole Blood 303 mg/dL (75-99)
[2020-12-01 21:10] LABS: Glucose,Whole Blood 264 mg/dL (75-99)
[2020-12-02] MEDS: HYDROmorphone 0.5 MG/0.5 ML SYRINGE IVP PRN ×5 (01:44→16:03)
[2020-12-02] MEDS: HYDROCORTISONE SUCCINATE 100 MG/2 ML VIAL IV SCH ×2 (05:06→13:06)
[2020-12-02 07:05] LABS: Glucose,Whole Blood 224 mg/dL (75-99)
[2020-12-02] MEDS: INSULIN ASPART (NovoLOG) 100 UNIT/ML VIAL SQ SCH ×6 (07:58→18:12)
[2020-12-02] MEDS: GABAPENTIN 100 MG CAP PO SCH ×2 (07:59→16:03)
[2020-12-02] MEDS: SPIRONOLACTONE 25 MG TAB PO SCH (07:59)
[2020-12-02] MEDS: ASPIRIN 81 MG PO SCH (08:00)
[2020-12-02] MEDS: HYDROcodone/APAP 10-325MG 1 EACH TAB PO SCH ×3 (08:00→18:11)
[2020-12-02] MEDS: lisinopriL 20 MG TAB PO SCH (08:01)
[2020-12-02] MEDS: POTASSIUM CHLORIDE ER 10 MEQ TAB.ER.PRT PO SCH (08:01)
[2020-12-02] MEDS: PANTOPRAZOLE 40 MG TABLET PO SCH (08:01)
[2020-12-02] MEDS: CHOLESTYRAMINE (WITH SUGAR) 4 GM PACKET PO SCH (08:02)
[2020-12-02] MEDS: ENOXAPARIN 40 MG/0.4 ML SYRINGE SQ SCH (08:02)
[2020-12-02] MEDS: ERTAPENEM 1 GM in SODIUM CHLORIDE 0.9% 50 ML IVPB SCH (08:02)
[2020-12-02] MEDS: VENLAFAXINE HCL ER 75 MG CAP PO SCH (08:02)
[2020-12-02] MEDS: BRIMONIDINE TARTRATE 0.2% DROPS 5 ML BTL RIGHT EYE SCH (09:48)
[2020-12-02] MEDS: INSULIN DETEMIR (LEVEMIR) 100 UNIT/ML SYR SQ SCH (11:44)
[2020-12-02 11:57] LABS: Glucose,Whole Blood 253 mg/dL (75-99)
--- NOTE | 2020-12-02 13:27 | PN ---
PROGRESS NOTE DATE OF SERVICE: 12/01/2020 REASON FOR FOLLOWUP: Urinary tract infection. INTERVAL HISTORY: Patient is afebrile. The patient is breathing comfortably. Denies having any chest pain, shortness of breath or cough. No nausea, vomiting, abdominal pain or diarrhea. PHYSICAL EXAMINATION: Blood pressure 154/86, pulse of 53, temperature 98. She is 96% on room air. General description is an elderly female lying in no distress. Respiratory system: Unlabored breathing, clear to auscultation anteriorly. Heart S1, S2. Regular rate and rhythm. ABDOMEN: Soft, no tenderness. LAB: Urine showing Irma albicans. DIAGNOSTIC IMPRESSION AND PLAN: This patient with urinary tract infection adequately treated, now showing Irma albicans, possible colonizer. The patient did not have urinary symptoms at this point and she is use of Diflucan antibiotic on discharge. MMODL / IJN: [id number] /
[2020-12-02 15:15] VITALS: BP 161/75; PULSE 60; TEMP 98.4
[2020-12-02 17:12] LABS: Glucose,Whole Blood 190 mg/dL (75-99)
== END 2020-12-02 19:04 | disposition home health service (06) | DRG 872 ==
LOC: EC 12:04 → 6NMEDSUR 15:03 → OBSVTOIN 11-28 07:50
PROVIDERS: ADMIT Family Medicine; ATTEND Family Medicine
DX: A41.51 Sepsis due to Escherichia coli [E. coli] (principal); E27.40 Unspecified adrenocortical insufficiency; Z16.12 Extended spectrum beta lactamase (ESBL) resistance; Z16.21 Resistance to vancomycin; E11.40 Type 2 diabetes mellitus with diabetic neuropathy, unspecified; E11.51 Type 2 diabetes mellitus with diabetic peripheral angiopathy without gangrene; E11.65 Type 2 diabetes mellitus with hyperglycemia; Z79.4 Long term (current) use of insulin; E89.2 Postprocedural hypoparathyroidism; Z89.421 Acquired absence of other right toe(s); J42 Unspecified chronic bronchitis; Z20.822 Contact with and (suspected) exposure to COVID-19; G43.909 Migraine, unspecified, not intractable, without status migrainosus; G47.33 Obstructive sleep apnea (adult) (pediatric); I25.10 Atherosclerotic heart disease of native coronary artery without angina pectoris; G89.29 Other chronic pain; M54.2 Cervicalgia; M79.7 Fibromyalgia; I10 Essential (primary) hypertension; E78.5 Hyperlipidemia, unspecified; F32.9 Major depressive disorder, single episode, unspecified; I49.3 Ventricular premature depolarization; I83.90 Asymptomatic varicose veins of unspecified lower extremity; I87.2 Venous insufficiency (chronic) (peripheral); M75.101 Unspecified rotator cuff tear or rupture of right shoulder, not specified as traumatic; M19.90 Unspecified osteoarthritis, unspecified site; Z79.82 Long term (current) use of aspirin; Z79.899 Other long term (current) drug therapy; Z87.442 Personal history of urinary calculi; Z87.440 Personal history of urinary (tract) infections; Z86.718 Personal history of other venous thrombosis and embolism; Z87.01 Personal history of pneumonia (recurrent); Z86.19 Personal history of other infectious and parasitic diseases; Z90.710 Acquired absence of both cervix and uterus; Z90.49 Acquired absence of other specified parts of digestive tract; Z90.89 Acquired absence of other organs; Z98.1 Arthrodesis status; Z87.42 Personal history of other diseases of the female genital tract; Z87.448 Personal history of other diseases of urinary system; Z98.42 Cataract extraction status, left eye; Z98.41 Cataract extraction status, right eye; Z87.2 Personal history of diseases of the skin and subcutaneous tissue; Z98.890 Other specified postprocedural states; Z88.1 Allergy status to other antibiotic agents; Z88.5 Allergy status to narcotic agent; Z88.0 Allergy status to penicillin; Z88.2 Allergy status to sulfonamides; Z88.8 Allergy status to other drugs, medicaments and biological substances; Z82.49 Family history of ischemic heart disease and other diseases of the circulatory system; Z82.3 Family history of stroke; Z83.3 Family history of diabetes mellitus; Z80.49 Family history of malignant neoplasm of other genital organs; Z83.6 Family history of other diseases of the respiratory system
CPT/HCPCS: 36415; 74018; 76770; 80048; 80053; 80170; 81001; 82150; 82565; 83036; 83690; 85025; 85027; 85610; 85730; 87077; 87086; 87186; 87635; 96374; 96375; 96376; 99285

== ENCOUNTER 2020-12-11 12:53 | Inpatient (IN) | payer MEDICARE, BC ==
[2020-12-11] MEDS ORDERED: ONDANSETRON 4 MG/2 ML VIAL IVP STA (13:23)
[2020-12-11] MEDS ORDERED: HYDROCORTISONE SUCCINATE 100 MG/2 ML VIAL IV STA (13:23)
[2020-12-11] MEDS ORDERED: HYDROmorphone 0.5 MG/0.5 ML SYRINGE IVP STA (13:23)
[2020-12-11] MEDS ORDERED: SODIUM CHLORIDE 0.9% 500 ML 500 ML IV ONE (13:26)
--- NOTE | 2020-12-11 13:26 | ED ---
General Adult HPI - General Chief complaint: Nausea/Vomiting/Diarrhea Stated complaint: Revisit Vomiting Time Seen by Provider: 12/11/20 13:00 Source: patient, RN notes reviewed, old records reviewed Mode of arrival: wheelchair Limitations: no limitations - History of Present Illness Initial comments: This is a 70-year-old female who presents emergency Department with adrenal insufficiency. Patient states she has not been feeling well last couple days been unable to take her Cortef at home. Patient states she hasn't been eating or drinking and felt very nauseated. Patient states she has chronic right-sided flank pain and that continues. Patient states she vomited on the way in to the emergency department. Patient states she feels just overall fatigue and rundown. Patient is concerned she has another urinary tract infection for which she just got done being treated for with gentamicin. Patient states she does have some dysuria. Patient denies any anterior abdominal pain. Patient denies any fever chills per patient denies any chest pain difficulty breathing or shortness of breath. - Related Data Home Medications Medication Instructions Recorded Confirmed Cholecalciferol [Vitamin D3 (25 75 mcg PO DAILY 12/01/14 12/11/20 Mcg = 1000 Iu)] Metoprolol Succinate (ER) [Toprol 50 mg PO HS 07/06/17 12/11/20 XL] Meclizine [Antivert] 25 mg PO QID PRN 11/26/17 12/11/20 Ferrous Sulfate [Iron (65 MG 325 mg PO DAILY 10/08/18 12/11/20 Elemental)] Folic Acid 0.4 mg PO DAILY 10/08/18 12/11/20 L.acidoph,Paracasei, B.lactis 2 cap PO BID 10/08/18 12/11/20 [Probiotic] Melatonin 5 mg PO HS PRN 10/08/18 12/11/20 Multivitamins, Thera Liquid 30 ml PO DAILY 10/08/18 12/11/20 [Theragran Liquid (formulary)] Potassium 99 mg PO DAILY 10/08/18 12/11/20 Thiamine [Vitamin B-1] 100 mg PO DAILY 10/08/18 12/11/20 Vitamin B-Complex Drops 1 ml PO BID 10/08/18 12/11/20 Venlafaxine HCl [Effexor XR] 75 mg PO DAILY 11/08/19 12/11/20 Magnesium Oxide [Mag-Ox] 400 mg PO DAILY 12/06/19 12/11/20 HYDROcodone/APAP 10-325MG [Henriette 1 tab PO QID PRN 04/16/20 12/11/20 10-325] C,E,Zinc,Copper 11/Gbumz5l/Lut 1 cap PO DAILY 06/25/20 12/11/20 [Ocuvite Adult 50 Plus Softgel] Cyanocobalamin (Vitamin B-12) 1,000 mcg PO DAILY 06/25/20 12/11/20 [Vitamin B-12] Ondansetron HCl [Zofran] 4 mg PO Q6H PRN 06/25/20 12/11/20 Spironolactone 50 mg PO DAILY 06/25/20 12/11/20 Vitamin E 400 unit PO DAILY 06/25/20 12/11/20 lisinopriL 40 mg PO DAILY 06/25/20 12/11/20 Brimonidine Tartrate [Alphagan P 1 drop RIGHT EYE BID 11/26/20 12/11/20 0.2% Ophth Soln] Butalb/APAP/Caff 50-325-40Mg 1 tab PO TID PRN 11/26/20 12/11/20 [Fioricet 50-325-40] Cholestyramine (with Sugar) 4 gm PO DAILY 11/26/20 12/11/20 [Questran Packet] Cranberry 37002tz Cap 1 cap PO BID 11/26/20 12/11/20 Estrogens, Conjugated Cream 1 applicator VAGINAL DAILY 11/26/20 12/11/20 [Premarin Cream] Glucagon [Gvoke Pfs 1-Pack Syringe] 1 mg SQ ONCE PRN 11/26/20 12/11/20 Hydrocortisone [Cortef] 5 mg PO HS 11/26/20 12/11/20 Hydrocortisone [Cortef] 10 mg PO DAILY@1200 11/26/20 12/11/20 Hydrocortisone [Cortef] 15 mg PO DAILY 11/26/20 12/11/20 Insulin Aspart [NovoLOG Flexpen] 11 units SQ AC-BRKFST 11/26/20 12/11/20 Insulin Aspart [NovoLOG Flexpen] 20 units SQ AC-LUNCH 11/26/20 12/11/20 Insulin Aspart [NovoLOG Flexpen] 26 unit SQ AC-SUPPER 11/26/20 12/11/20 Insulin Aspart [NovoLOG Flexpen] See Protocol SQ AC-TID 11/26/20 12/11/20 Metoclopramide HCl [Reglan] 5 mg PO TID PRN 11/26/20 12/11/20 Nystatin 1 applic TOPICAL DAILY PRN 11/26/20 12/11/20 Pantoprazole Sodium [Protonix] 40 mg PO DAILY 11/26/20 12/11/20 Promethazine HCl [Phenergan Syrup] 6.25 mg PO Q6H PRN 11/26/20 12/11/20 Cephalexin [Keflex] 250 mg PO HS 12/11/20 12/11/20 Insulin Glargine,Hum.rec.anlog 30 unit SQ HS 12/11/20 12/11/20 [Lantus Solostar] Previous Rx's Medication Instructions Recorded Aspirin 81 mg PO DAILY #0 07/02/18 Atorvastatin [Lipitor] 40 mg PO HS #30 tab 11/16/18 Gabapentin [Neurontin] 100 mg PO TID #9 cap 03/24/20 Allergies Allergy/AdvReac Type Severity Reaction Status Date / Time butorphanol tartrate Allergy BLISTERS Verified 12/11/20 12:57 [From Stadol] IN MOUTH ceftriaxone [From Rocephin] Allergy Unknown Verified 12/11/20 12:57 clarithromycin [From Biaxin] Allergy Rash/Hives Verified 12/11/20 12:57 clindamycin Allergy Unknown Verified 12/11/20 12:57 codeine Allergy Rash/Hives Verified 12/11/20 12:57 ergotamine tartrate Allergy Unknown Verified 12/11/20 12:57 [From Cafergot] erythromycin base Allergy RASH, GI Verified 12/11/20 12:57 [From E-Mycin] SYMPTOMS ketorolac tromethamine Allergy Rash/Hives Verified 12/11/20 12:57 [From Toradol] liraglutide [From Victoza] Allergy Rash/Hives Verified 12/11/20 12:57 morphine Allergy Rash/Hives Verified 12/11/20 12:57 Penicillins Allergy Rash/Hives Verified 12/11/20 12:57 pentazocine lactate Allergy SEVERE Verified 12/11/20 12:57 [From Talwin] BLISTERS IN MOUTH pregabalin [From Lyrica] Allergy Rash/Hives Verified 12/11/20 12:57 propoxyphene HCl Allergy Rash/Hives Verified 12/11/20 12:57 [From Darvon] Sulfa (Sulfonamide Allergy Rash/Hives Verified 12/11/20 12:57 Antibiotics) tramadol Allergy Unknown Verified 12/11/20 12:57 monosodium glutamate [MSG] AdvReac Nausea & Verified 12/11/20 12:57 Vomiting nalbuphine HCl [From Nubain] AdvReac Nausea & Verified 12/11/20 12:57 Vomiting Review of Systems ROS Statement: Those systems with pertinent positive or pertinent negative responses have been documented in the HPI. ROS Other: All systems not noted in ROS Statement are negative. Past Medical History Past Medical History: Diabetes Mellitus, Deep Vein Thrombosis (DVT), Fibromyalgia, Hyperlipidemia, Hypertension, Osteoarthritis (OA), Pneumonia, Renal Disease, Sleep Apnea/CPAP/BIPAP, Vascular Disorder Additional Past Medical History / Comment(s): Pt recently admitted to [facility] On 02/23/20 with complicated UTI/migraine/nausea and vomiting. 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, DVT R calf in 1976, cardiac murmur, occipital neuraligia, balance issues-has narrowing of vessels "in the back of my head", vertigo, varicosities, states rt shoulder torn rotator cuff History of Any Multi-Drug Resistant Organisms: ESBL, MRSA, VRE Date of last positivie culture/infection: 11/25/20 ESBL;12/06/19 VRE; 03/10/11 MRSA MDRO Source:: Urine ESBL; Urine-VRE: MRSA 4th Right TOE Past Surgical History: Appendectomy, Back Surgery, Bladder Surgery, Breast Surgery, Cholecystectomy, Heart Catheterization, Hysterectomy, Orthopedic Surgery, Tonsillectomy Additional Past Surgical History / Comment(s): Lumbar fusions, bladder suspension, occipital nerve blocks, 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, R wrist/elbow nerve repair, bone removed R shoulder, 4th toe R foot partial amputation, bilateral feet/bunionectomies, R knee arthroscopies, R orbit de compression with ethmoidectomy and eyelid lift, EGD, colonoscopies, cystocopies, lithotripsy/stents, bilateral breast reduction, bilateral cataract removals, parathyroid surgery - April 2019, pain clinic procedures Past Anesthesia/Blood Transfusion Reactions: No Reported Reaction Additional Past Anesthesia/Blood Transfusion Reaction / Comment(s): never recieved blood Past Psychological History: Depression Smoking Status: Never smoker Past Alcohol Use History: None Reported Past Drug Use History: None Reported - Past Family History Father Family Medical History: Coronary Artery Disease (CAD), CVA/TIA, Diabetes Mellitus, Myocardial Infarction (PA), Pneumonia Additional Family Medical History / Comment(s): Father at the age of 78yrs from PA and pneumonia. Mother Family Medical History: Cancer Additional Family Medical History / Comment(s): Mother had uterine cancer. She recently at the age of 96yrs old from Fluid. General Exam - General Exam Comments Initial Comments: GENERAL: Patient is well-developed and well-nourished. Patient is nontoxic and well- hydrated and is in mild distress. ENT: Neck is soft and supple. No significant lymphadenopathy is noted. Oropharynx is clear. Dry mucous membranes. Neck has full range of motion without eliciting any pain. EYES: The sclera were anicteric and conjunctiva were pink and moist. Extraocular movements were intact and pupils were equal round and reactive to light. Eyelids were unremarkable. PULMONARY: Unlabored respirations. Good breath sounds bilaterally. No audible rales rhonchi or wheezing was noted. CARDIOVASCULAR: There is a regular rate and rhythm without any murmurs gallops or rubs. ABDOMEN: Soft and nontender with normal bowel sounds. SKIN: Skin is clear with no lesions or rashes and otherwise unremarkable. NEUROLOGIC: Patient is alert and oriented x3. Cranial nerves II through XII are grossly intact. Motor and sensory are also intact. Normal speech, volume and content. Symmetrical smile. MUSCULOSKELETAL: Normal extremities with adequate strength and full range of motion. LYMPHATICS: No significant lymphadenopathy is noted PSYCHIATRIC: Normal psychiatric evaluation. Limitations: no limitations Course Vital Signs 12/11/20 12:58 Temperature 98.1 F Pulse Rate 124 H Respiratory 20 Rate Blood Pressure 93/62 O2 Sat by Pulse 95 Oximetry Medical Decision Making - Medical Decision Making EKG shows sinus tachycardia at 106 bpm OR interval was 132 QRS 78 QT interval 324 QTC is 4:30. Patient's EKG shows no ST segment elevation or depression. Chest x-ray shows no acute abnormality. Patient is a urinary tract infection will be started on gentamicin. I spoke with Dr. CRUZ agreed to admit the patient admitted the patient wrote admitting orders. - Lab Data Result diagrams: 12/11/20 14:28 12/11/20 14:28 Lab Results 12/11/20 12/11/20 12/11/20 Range/Units 14:28 14:28 14:28 WBC 10.1 (3.8-10.6) k/uL RBC 5.19 (3.80-5.40) m/uL Hgb 15.9 (11.4-16.0) gm/dL Hct 47.1 H (34.0-46.0) % MCV 90.6 (80.0-100.0) fL MCH 30.5 (25.0-35.0) pg MCHC 33.7 (31.0-37.0) g/dL RDW 13.6 (11.5-15.5) % Plt Count 233 (150-450) k/uL MPV 7.7 Neutrophils % 59 % Lymphocytes % 30 % Monocytes % 6 % Eosinophils % 3 % Basophils % 1 % Neutrophils # 6.0 (1.3-7.7) k/uL Lymphocytes # 3.1 (1.0-4.8) k/uL Monocytes # 0.6 (0-1.0) k/uL Eosinophils # 0.3 (0-0.7) k/uL Basophils # 0.1 (0-0.2) k/uL Sodium 140 (137-145) mmol/L Potassium 3.6 (3.5-5.1) mmol/L Chloride 102 (98-107) mmol/L Carbon Dioxide 25 (22-30) mmol/L Anion Gap 13 mmol/L BUN 16 (7-17) mg/dL Creatinine 0.72 (0.52-1.04) mg/dL Est GFR (CKD-EPI)AfAm >90 (>60 ml/min/1.73 sqM) Est GFR (CKD-EPI)NonAf 85 (>60 ml/min/1.73 sqM) Glucose 153 H (74-99) mg/dL Plasma Lactic Acid Sudhir (0.7-2.0) mmol/L Calcium 9.5 (8.4-10.2) mg/dL Magnesium 1.8 (1.6-2.3) mg/dL Total Bilirubin 0.9 (0.2-1.3) mg/dL AST 27 (14-36) U/L ALT 16 (4-34) U/L Alkaline Phosphatase 77 (38-126) U/L Total Protein 6.1 L (6.3-8.2) g/dL Albumin 4.1 (3.5-5.0) g/dL Urine Color Yellow Urine Appearance Clear (Clear) Urine pH 6.0 (5.0-8.0) Ur Specific [place] >1.050 H (1.001-1.035) Urine Protein 1+ H (Negative) Urine Glucose (UA) Negative (Negative) Urine Ketones 3+ H (Negative) Urine Blood Negative (Negative) Urine Nitrite Negative (Negative) Urine Bilirubin 1+ H (Negative) Urine Urobilinogen 2.0 (<2.0) mg/dL Ur Leukocyte Esterase Large H (Negative) Urine RBC 9 H (0-5) /hpf Urine WBC 24 H (0-5) /hpf Ur Squamous Epith Cells 7 H (0-4) /hpf Urine Bacteria Rare H (None) /hpf Urine Mucus Few H (None) /hpf 12/11/20 Range/Units 14:28 WBC (3.8-10.6) k/uL RBC (3.80-5.40) m/uL Hgb (11.4-16.0) gm/dL Hct (34.0-46.0) % MCV (80.0-100.0) fL MCH (25.0-35.0) pg MCHC (31.0-37.0) g/dL RDW (11.5-15.5) % Plt Count (150-450) k/uL MPV Neutrophils % % Lymphocytes % % Monocytes % % Eosinophils % % Basophils % % Neutrophils # (1.3-7.7) k/uL Lymphocytes # (1.0-4.8) k/uL Monocytes # (0-1.0) k/uL Eosinophils # (0-0.7) k/uL Basophils # (0-0.2) k/uL Sodium (137-145) mmol/L Potassium (3.5-5.1) mmol/L Chloride (98-107) mmol/L Carbon Dioxide (22-30) mmol/L Anion Gap mmol/L BUN (7-17) mg/dL Creatinine (0.52-1.04) mg/dL Est GFR (CKD-EPI)AfAm (>60 ml/min/1.73 sqM) Est GFR (CKD-EPI)NonAf (>60 ml/min/1.73 sqM) Glucose (74-99) mg/dL Plasma Lactic Acid Sudhir 2.1 H* (0.7-2.0) mmol/L Calcium (8.4-10.2) mg/dL Magnesium (1.6-2.3) mg/dL Total Bilirubin (0.2-1.3) mg/dL AST (14-36) U/L ALT (4-34) U/L Alkaline Phosphatase (38-126) U/L Total Protein (6.3-8.2) g/dL Albumin (3.5-5.0) g/dL Urine Color Urine Appearance (Clear) Urine pH (5.0-8.0) Ur Specific [place] (1.001-1.035) Urine Protein (Negative) Urine Glucose (UA) (Negative) Urine Ketones (Negative) Urine Blood (Negative) Urine Nitrite (Negative) Urine Bilirubin (Negative) Urine Urobilinogen (<2.0) mg/dL Ur Leukocyte Esterase (Negative) Urine RBC (0-5) /hpf Urine WBC (0-5) /hpf Ur Squamous Epith Cells (0-4) /hpf Urine Bacteria (None) /hpf Urine Mucus (None) /hpf Disposition Clinical Impression: Urinary tract infection, Adrenal insufficiency, Fatigue Disposition: ADMITTED IP TO THIS HOSP Referrals: Andrew Gonsales MD [Primary Care Provider] - 1-2 days Time of Disposition: 14:59
[2020-12-11] MEDS: SODIUM CHLORIDE 0.9% 1,000 ML IV ONE (14:36)
[2020-12-11 14:39] LABS: Basophils # (A) 0.1 k/uL (0-0.2); Basophils % (A) 1 %; Eosinophils # (A) 0.3 k/uL (0-0.7); Eosinophils % (A) 3 %; HCT 47.1 % (34.0-46.0); HGB 15.9 gm/dL (11.4-16.0); Lymphocytes # (A) 3.1 k/uL (1.0-4.8); Lymphocytes % (A) 30 %; MCH 30.5 pg (25.0-35.0); MCHC 33.7 g/dL (31.0-37.0); MCV 90.6 fL (80.0-100.0); Mean Platelet Volume 7.7; Monocytes # (A) 0.6 k/uL (0-1.0); Monocytes % (A) 6 %; Neutrophils % (A) 59 %; Platelet Count 233 k/uL (150-450); RBC 5.19 m/uL (3.80-5.40); RDW 13.6 % (11.5-15.5); WBC 10.1 k/uL (3.8-10.6)
[2020-12-11 14:45] LABS: Appearance,Urine Clear (Clear); Bacteria,Urine Rare /hpf; Bilirubin,Urine 1+ (Negative); Blood,Urine Negative (Negative); Color,Urine Yellow; Glucose,Urine (UA) Negative (Negative); Ketones,Urine 3+ (Negative); Leukocyte Esterase,Urine Large (Negative); Mucus,Urine Few /hpf; Nitrite,Urine Negative (Negative); Protein,Urine 1+ (Negative); RBC,Urine 9 /hpf (0-5); Squamous Epithelial Cell,Urine 7 /hpf (0-4); WBC,Urine 24 /hpf (0-5)
[2020-12-11 14:48] LABS: ALT 16 U/L (4-34); AST 27 U/L (14-36); African American GFR (CKD) >90 (>60 ml/min/1.73 sqM); Albumin 4.1 g/dL (3.5-5.0); Alkaline Phosphatase 77 U/L (38-126); Anion Gap 13 mmol/L; Blood Urea Nitrogen 16 mg/dL (7-17); Calcium 9.5 mg/dL (8.4-10.2); Carbon Dioxide 25 mmol/L (22-30); Chloride 102 mmol/L (98-107); Glucose 153 mg/dL (74-99); Magnesium 1.8 mg/dL (1.6-2.3); Non-African American GFR(CKD) 85 (>60 ml/min/1.73 sqM); Potassium 3.6 mmol/L (3.5-5.1); Sodium 140 mmol/L (137-145); Specific Gravity,Urine >1.050 (1.001-1.035); Total Bilirubin 0.9 mg/dL (0.2-1.3); Total Protein 6.1 g/dL (6.3-8.2)
[2020-12-11] MEDS ORDERED: GENTAMICIN PER PHARMACY MISCELLANE PRN (14:59)
[2020-12-11] MEDS ORDERED: SODIUM CHLORIDE 0.9% 1,000 ML IV ONE ×2 (15:01→15:02)
[2020-12-11] MEDS ORDERED: HYDROcodone/APAP 10-325MG 1 EACH TAB PO PRN (15:03)
--- NOTE | 2020-12-11 15:14 | XR ---
EXAMINATION TYPE: XR chest 2V DATE OF EXAM: 12/11/2020 COMPARISON: Chest x-ray 03/21/2020 HISTORY: Covid breathing TECHNIQUE: Frontal and lateral views of the chest are obtained. FINDINGS: There is no focal air space opacity, pleural effusion, or pneumothorax seen. The cardiac silhouette size is stable accounting for differences in technique, thought to be mildly enlarged. T he osseous structures are stable, distal right clavicle may been resected, is superiorly oriented rel ation to the acromion as on prior. Metallic chain present over the right neck. Patient is rotated. Chin rgical clips are present in the right upper quadrant. IMPRESSION: No acute cardiopulmonary process.
[2020-12-11] MEDS ORDERED: GENTAMICIN 270 MG in SODIUM CHLORIDE 0.9% 100 ML IVPB SCH (15:30)
[2020-12-11] MEDS ORDERED: METOCLOPRAMIDE 5 MG TAB PO PRN (17:27)
[2020-12-11] MEDS ORDERED: MELATONIN 5 MG TABLET PO PRN (17:27)
[2020-12-11] MEDS ORDERED: NYSTATIN 100,000UNIT/GM CREAM 30 GM TUBE TOPICAL PRN (17:27)
[2020-12-11] MEDS ORDERED: MECLIZINE 25 MG TAB PO PRN (17:27)
[2020-12-11] MEDS ORDERED: GLUCAGON 1 MG/ML VIAL SQ PRN (17:27)
[2020-12-11] MEDS ORDERED: PROMETHAZINE HCL 6.25 MG/5 ML CUP PO PRN (17:27)
[2020-12-11] MEDS ORDERED: HYDROmorphone 0.5 MG/0.5 ML SYRINGE IVP PRN (18:03)
[2020-12-11 18:11] LABS: Glucose,Whole Blood 196 mg/dL (75-99)
[2020-12-11] MEDS: INSULIN ASPART (NovoLOG) 100 UNIT/ML VIAL SQ SCH ×2 (18:16→21:27)
[2020-12-11] MEDS: ERTAPENEM 1 GM in SODIUM CHLORIDE 0.9% 50 ML IVPB SCH (18:16)
[2020-12-11] MEDS: GABAPENTIN 100 MG CAP PO SCH ×2 (18:23→23:19)
[2020-12-11 20:41] LABS: Glucose,Whole Blood 187 mg/dL (75-99)
[2020-12-11] MEDS ORDERED: VITAMIN B COMPLEX PO SCH (21:00)
[2020-12-11] MEDS ORDERED: HYDROCORTISONE 10 MG TAB PO SCH (21:00)
[2020-12-11] MEDS ORDERED: CRANBERRY 15000 MG PO SCH (21:00)
[2020-12-11] MEDS: ONDANSETRON 4 MG/2 ML VIAL IVP PRN (21:17)
[2020-12-11] MEDS: HYDROmorphone 0.5 MG/0.5 ML SYRINGE IVP PRN (21:47)
[2020-12-11] MEDS: ATORVASTATIN 40 MG TAB PO SCH (23:19)
[2020-12-11] MEDS: HYDROCORTISONE SUCCINATE 100 MG/2 ML VIAL IV SCH (23:20)
[2020-12-11] MEDS: LACTOBACILLUS ACIDOPH & BULGAR 1 EACH PACKET PO SCH (23:21)
[2020-12-11] MEDS: METOPROLOL SUCCINATE (ER) 50 MG TAB.ER.24H PO SCH (23:21)
[2020-12-11] MEDS: INSULIN DETEMIR (LEVEMIR) 100 UNIT/ML SYR SQ SCH (23:21)
[2020-12-12] MEDS: BRIMONIDINE TARTRATE 0.2% DROPS 5 ML BTL RIGHT EYE SCH ×3 (00:14→22:16)
[2020-12-12] MEDS: HEPARIN SODIUM,PORCINE/PF 5,000 UNIT/0.5 ML SYRINGE SQ SCH ×3 (00:14→21:49)
[2020-12-12] MEDS: HYDROCORTISONE SUCCINATE 100 MG/2 ML VIAL IV SCH ×3 (00:20→17:54)
[2020-12-12] MEDS: HYDROmorphone 0.5 MG/0.5 ML SYRINGE IVP PRN ×7 (01:41→21:50)
[2020-12-12 01:47] LABS: Glucose,Whole Blood 185 mg/dL (75-99)
[2020-12-12 05:44] LABS: Basophils % (A) 0 %; Eosinophils % (A) 0 %; HCT 37.4 % (34.0-46.0); Lymphocytes # (A) 0.9 k/uL (1.0-4.8); Lymphocytes % (A) 10 %; MCH 31.3 pg (25.0-35.0); MCV 91.9 fL (80.0-100.0); Mean Platelet Volume 8.1; Monocytes # (A) 0.2 k/uL (0-1.0); Monocytes % (A) 2 %; Neutrophils # (A) 7.9 k/uL (1.3-7.7); Neutrophils % (A) 87 %; Platelet Count 199 k/uL (150-450); RBC 4.07 m/uL (3.80-5.40); RDW 13.6 % (11.5-15.5); WBC 9.1 k/uL (3.8-10.6)
[2020-12-12 06:46] LABS: Glucose,Whole Blood 133 mg/dL (75-99)
[2020-12-12 07:04] LABS: HGB 12.7 gm/dL (11.4-16.0)
[2020-12-12] MEDS: INSULIN ASPART (NovoLOG) 100 UNIT/ML VIAL SQ SCH ×7 (07:37→21:55)
[2020-12-12] MEDS: CYANOCOBALAMIN 500 MCG TAB PO SCH (08:03)
[2020-12-12] MEDS: SPIRONOLACTONE 25 MG TAB PO SCH (08:03)
[2020-12-12] MEDS: VENLAFAXINE HCL ER 75 MG CAP PO SCH (08:03)
[2020-12-12] MEDS: CHOLECALCIFEROL 25 MCG (1000 IU) TABLET PO SCH (08:03)
[2020-12-12] MEDS: VIT A,C & E-LUTEIN-MINERALS 1 EACH TAB PO SCH (08:03)
[2020-12-12] MEDS: ASPIRIN 81 MG PO SCH (08:03)
[2020-12-12] MEDS: MAGNESIUM OXIDE 400 MG TAB PO SCH (08:03)
[2020-12-12] MEDS: LACTOBACILLUS ACIDOPH & BULGAR 1 EACH PACKET PO SCH ×2 (08:04→21:52)
[2020-12-12] MEDS: PANTOPRAZOLE 40 MG TABLET PO SCH (08:04)
[2020-12-12] MEDS: MULTIVITAMINS, THERA 1 EACH TAB PO SCH (08:04)
[2020-12-12] MEDS: FOLIC ACID 1 MG TAB PO SCH (08:04)
[2020-12-12] MEDS: lisinopriL 20 MG TAB PO SCH (08:04)
[2020-12-12] MEDS: GABAPENTIN 100 MG CAP PO SCH ×3 (08:04→21:49)
[2020-12-12] MEDS: FERROUS SULFATE 325 MG TAB PO SCH (08:05)
[2020-12-12] MEDS: CHOLESTYRAMINE (WITH SUGAR) 4 GM PACKET PO SCH (08:05)
[2020-12-12] MEDS: VITAMIN E (DL,TOCOPHERYL ACET) 400 UNIT CAP PO SCH (08:05)
[2020-12-12] MEDS: ERTAPENEM 1 GM in SODIUM CHLORIDE 0.9% 50 ML IVPB SCH (08:05)
[2020-12-12] MEDS: POTASSIUM CHLORIDE ER 10 MEQ TAB.ER.PRT PO SCH (08:06)
[2020-12-12] MEDS: THIAMINE 100 MG TAB PO SCH (08:10)
--- NOTE | 2020-12-12 08:56 | HP ---
HISTORY AND PHYSICAL CHIEF COMPLAINT: Nausea, vomiting, and weakness. HISTORY OF PRESENT ILLNESS: This 70-year-old woman with a past medical history of multiple medical problems including recurrent episodes of UTI, history of TIA, history of diabetes, history of DVT, fibromyalgia, hyperlipidemia, DJD, being followed by Dr. Gonsales in the outpatient was recently admitted with ESBL UTI. The patient was apparently supposed to go home on IV antibiotics. Apparently home care did not show up and the patient complaining of problems of being weak and tired and unable to keep anything down, nausea, vomiting and patient came to [facility] for evaluation and treatment. There is no history of any fever, rigors. No headache, loss of consciousness, seizures at this time. PAST MEDICAL HISTORY: Of DVT, history of diabetes, fibromyalgia, hyperlipidemia, hypertension, DJD, history of vascular disorder, history of MRSA, history of ESBL. MEDICATIONS: Home medications are ( ) vitamin, vitamin B, Effexor, vitamin B1, spironolactone, Phenergan, Protonix. Zofran, multivitamin, Toprol-XL, Reglan, melatonin, meclizine, hydrocodone. The rest of the medications and doses are reviewed. ALLERGIES: MULTIPLE ALLERGIES INCLUDING STADOL, ROCEPHIN, BIAXIN, CLINDAMYCIN, CODEINE, CAFERGOT, NEOMYCIN, TORADOL, VICTOZA, MORPHINE, PENICILLIN, TALWIN, LYRICA, DARVON, SULFAMIDE, ULTRAM, MSG, NUBAIN. FAMILY HISTORY: History of uterine cancer in the family. SOCIAL HISTORY: History of smoking. No history of alcohol intake. REVIEW OF SYSTEMS: ENT No history of diminished hearing or vision. CARDIOVASCULAR No angina or palpitations. RESPIRATORY As mentioned earlier. GI No nausea, vomiting, or diarrhea. As mentioned earlier. NERVOUS As mentioned earlier. ALLERGY/IMMUNOLOGY No asthma or hayfever. MUSCULOSKELETAL As mentioned earlier. HEMATOLOGY/ONCOLOGY As mentioned earlier. ENDOCRINE As mentioned earlier.. CONSTITUTIONAL As mentioned earlier. DERMATOLOGY Negative. RHEUMATOLOGY Negative, PSYCHIATRY As mentioned earlier. PHYSICAL EXAMINATION: Alert and oriented x3. Pulse 100, blood pressure 115/65, respirations 16, temperature 98 degree, pulse ox 97% on room air. HEENT: Conjunctivae normal. Oral mucosa moist. NECK: No jugular venous distention. No lymph node enlargement. CARDIOVASCULAR: S1, S2, muffled. No S3, no S4, RESPIRATORY: Diminished breath sounds at the bases. A few scattered rhonchi and crackles. ABDOMEN: Soft, obese, nontender. No mass palpable. LEGS: No edema, no swelling. NERVOUS SYSTEM: Higher functions mentioned earlier. Moves all four limbs. Mild diffuse weakness. LYMPHATICS: No lymph node in neck or axilla. SKIN: No rash. JOINTS: No active deforming arthropathy. LABS: WBC 10.1 and hemoglobin 15.9. Lactic acid 2.1. UA noted. ASSESSMENT: 1. Possible acute urinary tract infection with sepsis with possible ESBL. 2. History of recent ESBL with the patient apparently not receiving antibiotics. 3. Diabetes, type 2. 4. Change in mental status, acute metabolic encephalopathy, multifactorial. 5. History of DVT. 6. Fibromyalgia. 7. Hypertension. 8. Hyperlipidemia. 9. History of DJD. 10.History of pneumonia. 11.History of sleep apnea. 12.History of TIA. 13.History of migraine. 14.History of bilateral peripheral neuropathy. 15.History of chronic bronchitis. 16.History of obstructive sleep apnea with CPAP. 17.History urinary tract infection with sepsis, multiple episodes. 18.Degenerative joint disease. 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 20.History of cardiac murmur. 21.History of adrenal insufficiency. 22.History of ESBL. 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 25.History of appendectomy. 26.History of back surgery. 27.History of DJD. 28.History of depression. RECOMMENDATIONS AND DISCUSSION: In this 70-year-old woman who presented with multiple complex medical issues, we will monitor the patient closely. We will initiate ertapenem. Obtain cultures. Resume the home medications. Infectious Disease evaluation with Dr. Osman. Social Work and Case Management. Also recommend IV steroids, pain management. Guarded prognosis because of multiple complex medical issues. Further recommendations. Will monitor blood sugars closely. MMODL / IJN: [id number] /
[2020-12-12] MEDS ORDERED: HYDROCORTISONE 10 MG TAB PO SCH ×2 (09:00→12:00)
--- NOTE | 2020-12-12 09:17 | CONS ---
CONSULTATION DATE OF SERVICE: 12/11/2020 REASON FOR CONSULTATION: Urinary tract infection. HISTORY OF PRESENT ILLNESS: The patient is a 70-year-old female with a past medical history of urinary tract infection in this patient who does have history of ESBL, cellulitis, VRE and UTIs. Patient was recently admitted to this facility for urinary tract infection. However, the urine culture negative for any resistant pathogen. Patient presenting to the ER complaining of not feeling well over the last 2 days and this patient did have symptoms of nausea and vomiting. The patient complaining of some burning and frequency, but no suprapubic or flank pain. The patient complaining of some chills but denies high-grade fever. Has been complaining of overall feeling fatigued and run down. With these symptoms, the patient was evaluated by the ER physician. On arrival to the ER, the patient was afebrile and no fever subsequently recorded. The patient did have a normal white count with no left shift. Creatinine was normal. Lactic acid mildly elevated to 2.1, repeat is 1.2. The patient did have positive UA with large leukocyte esterase, 24 WBC. Corrigan PCR was negative. The patient did have a chest x-ray report negative for acute cardiopulmonary process. The patient was started on gentamicin. Infectious Disease was consulted for further management of antibiotic therapy. REVIEW OF SYSTEMS: Positive points have been mentioned in HPI. Rest of the systems are negative. PAST MEDICAL HISTORY: Recurrent urinary tract infection, diabetes mellitus, DVT, fibromyalgia, hyperlipidemia, hypertension, osteoarthritis, pneumonia, sleep apnea. PAST SURGICAL HISTORY: Appendectomy, back surgery, bladder surgery, tonsillectomy, hysterectomy, heart catheterization, cholecystectomy. SOCIAL HISTORY: No history of smoking, drinking or drug use. FAMILY HISTORY: No pertinent findings noticed. ALLERGIES: CEFTRIAXONE, ERYTHROMYCIN, CLINDAMYCIN, CODEINE, and other medication reviewed. MEDICATIONS: Currently include the patient is on Fioricet, Alexis, aspirin, Lipitor, vitamin D3, Questran, gentamicin, iron sulfate, folic acid, Neurontin, Glucophage, Solu Cortef, Dilaudid, NovoLog and Antivert and Melatonin. PHYSICAL EXAMINATION: Blood pressure is 115/65, pulse of 100, temperature 98, she is 97% on room air. General description: The patient is a middle-aged female lying in bed in no distress. No tachypnea or accessory muscles of respiration use. HEENT: Examination shows slight pallor. No scleral icterus. Oral mucous membranes dry. NECK: Trachea central. No thyromegaly. LUNGS unlabored breathing, clear to auscultation anteriorly. No wheeze or crackles. HEART S1, S2. Regular rate and rhythm. ABDOMEN: Soft, no tenderness. No guarding. No rigidity. No organomegaly. EXTREMITIES: No edema of the feet. SKIN: No rash or mass palpable. NEUROLOGICAL: The patient is awake, alert, oriented x3. Mood and affect normal. LABS: Hemoglobin is 15, white count 18.1, BUN of 16, creatinine 0.72. Lactic acid 2.8, repeat is 1.2. Urine was positive. Chest x-ray report negative. DIAGNOSTIC IMPRESSION AND PLAN: 1. Patient admitted to the hospital with acute nausea and vomiting, abdominal pain and urinary symptoms concerning for a symptomatic urinary tract infection versus other metabolic etiologies. 2. Patient does have MULTIPLE ANTIBIOTIC ALLERGIES, limiting the number of antibiotics safe to use. 3. History of infection with ESBL as well as VRE. PLAN: 1. Discontinue the gentamicin to decrease the risk of nephrotoxicity. 2. We will start the patient on Invanz 1 g IV piggyback daily. 3. We will follow on clinical condition and cultures to further adjust medication if needed. Thank you for this consultation. Will follow this patient along with you. MMODL / IJN: [id number] /
[2020-12-12] MEDS: ONDANSETRON 4 MG/2 ML VIAL IVP PRN (09:40)
[2020-12-12 10:10] LABS: Anion Gap 11.7 mmol/L (4.00-12.00); BUN/Creat Ratio 14.29 Ratio (12.00-20.00); Calcium 7.5 mg/dL (8.7-10.3); Carbon Dioxide 24.3 mmol/L (21.6-31.8); Non-African American GFR(CKD) 87.2 (60.0-200.0); Potassium 4.2 mmol/L (3.5-5.5)
[2020-12-12 12:08] LABS: Glucose,Whole Blood 124 mg/dL (75-99)
[2020-12-12 17:19] LABS: Glucose,Whole Blood 201 mg/dL (75-99)
[2020-12-12] MEDS: SODIUM CHLORIDE 0.9% 1,000 ML IV ONE (19:19)
--- NOTE | 2020-12-12 20:44 | PN ---
PROGRESS NOTE DATE OF SERVICE: 12/12/2020. HISTORY: This 70-year-old woman was admitted with features of possible acute UTI with sepsis and history of ESBL E coli previously. The patient also had Irma growing from the urine culture. The patient being closely monitored. Dr. Osman is following the patient closely also. The patient has also been continued with home medications also. The patient is complaining of severe abdominal pain necessitating IV pain medications also. PAST MEDICAL HISTORY: Reviewed. REVIEW OF SYSTEMS: CARDIOVASCULAR SYSTEM: No angina or palpitations. GI: As mentioned earlier. GI: As mentioned earlier. NERVOUS SYSTEM: No numbness or weakness. CURRENT MEDICATIONS: Reviewed and include Fioricet, [place], aspirin, Lipitor, Alph[place], vitamin D3. Doses are reviewed. PHYSICAL EXAMINATION: Alert, oriented x2. Pulse 66, blood pressure 160/81, respiration 18, temperature 98.2, pulse ox 98% on room air. HEENT: Conjunctivae normal. NECK: Supple. CARDIOVASCULAR: S1 and S2 muffled. LUNGS: Breath sounds diminished at the bases. Scattered rhonchi. ABDOMEN: Soft, mild diffuse discomfort. LEGS: No swelling. NERVOUS SYSTEM: No focal weakness. LABS: CBC within normal limits, glucose 151, 133, 124. ASSESSMENT: 1. Acute urinary tract infection with sepsis with possible ESBL infection. 2. History of recent ESBL infection with Escherichia coli. 3. Diabetes type 2. 4. Change in mental status acute metabolic encephalopathy multifactorial. 5. History of deep vein thrombosis. 6. Fibromyalgia. 7. Hypertension. 8. Hyperlipidemia. 9. History of DJD. 10.History of pneumonia. 11.History of sleep apnea. 12.History of transient ischemic attack. 13.History of migraine. 14.History of bilateral peripheral neuropathy. 15.History of chronic bronchitis. 16.History of sleep apnea on CPAP. 17.History of urinary tract infection with sepsis with multiple episodes. 18.Degenerative joint disease. 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 20.History of cardiac murmur. 21.History of adrenal insufficiency. 22.History of MILAGROS. 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 24.History of appendectomy. 25.History of back surgery. 26.History of degenerative joint disease. 27.History of depression. RECOMMENDATIONS: Continue current management and symptomatic treatment. Otherwise await cultures. Continue supportive management. The patient is on ertapenem 1 g daily. Guarded prognosis because of multiple complex medical problems. See orders for details. Will continue insulin as before as well. MMODL / IJN: [id number] /
[2020-12-12 21:03] LABS: Glucose,Whole Blood 90 mg/dL (75-99)
[2020-12-12] MEDS: ATORVASTATIN 40 MG TAB PO SCH (21:49)
[2020-12-12] MEDS: METOPROLOL SUCCINATE (ER) 50 MG TAB.ER.24H PO SCH (21:49)
[2020-12-12] MEDS: FLUCONAZOLE 100 MG TAB PO SCH (21:49)
[2020-12-12] MEDS: INSULIN DETEMIR (LEVEMIR) 100 UNIT/ML SYR SQ SCH (21:49)
[2020-12-12] MEDS: HYDROcodone/APAP 10-325MG 1 EACH TAB PO PRN (22:54)
[2020-12-13] MEDS: HYDROmorphone 0.5 MG/0.5 ML SYRINGE IVP PRN ×7 (01:20→23:05)
[2020-12-13] MEDS: HYDROCORTISONE SUCCINATE 100 MG/2 ML VIAL IV SCH ×4 (01:21→23:11)
--- NOTE | 2020-12-13 02:07 | PN ---
PROGRESS NOTE DATE OF SERVICE: 12/12/2020. REASON FOR FOLLOWUP: Complicated urinary tract infection. INTERVAL HISTORY: The patient is afebrile. The patient is breathing comfortably. Patient denies having any chest pain, no shortness of breath. ( ) some pain in the right leg area, but no vomiting no diarrhea. PHYSICAL EXAMINATION: Blood pressure 127/65, pulse of 73, temperature of 98, she is 92% on room air. The patient is an elderly female lying in bed, in no distress. Respiratory system: Unlabored breathing, clear to auscultation anteriorly. Heart: S1, S2. Regular rate and rhythm. Abdomen: Soft, no tenderness. LABS: Hemoglobin is 12.7, white count 9.1, BUN of 10, creatinine 0.7. Urine culture pending. IMPRESSION AND PLAN: Patient in the hospital with right flank pain, nausea, vomiting, urinary burning with concern for symptomatic urinary tract infection. We are waiting for the culture to finalize. Continue with Invanz and monitor clinical course closely. MMODL / IJN: [id number] /
[2020-12-13 06:17] LABS: Basophils % (A) 0 %; Eosinophils % (A) 0 %; Lymphocytes # (A) 0.8 k/uL (1.0-4.8); Lymphocytes % (A) 10 %; MCH 31.7 pg (25.0-35.0); MCHC 34.3 g/dL (31.0-37.0); MCV 92.3 fL (80.0-100.0); Mean Platelet Volume 7.6; Monocytes # (A) 0.2 k/uL (0-1.0); Monocytes % (A) 3 %; Neutrophils # (A) 6.6 k/uL (1.3-7.7); Neutrophils % (A) 86 %; Platelet Count 176 k/uL (150-450); RBC 3.79 m/uL (3.80-5.40); RDW 13.7 % (11.5-15.5); WBC 7.7 k/uL (3.8-10.6)
[2020-12-13] MEDS: HYDROcodone/APAP 10-325MG 1 EACH TAB PO PRN (06:21)
[2020-12-13 07:17] LABS: Glucose,Whole Blood 180 mg/dL (75-99)
[2020-12-13] MEDS: INSULIN ASPART (NovoLOG) 100 UNIT/ML VIAL SQ SCH ×7 (09:38→20:14)
[2020-12-13] MEDS: BRIMONIDINE TARTRATE 0.2% DROPS 5 ML BTL RIGHT EYE SCH ×2 (09:39→20:08)
[2020-12-13] MEDS: CHOLESTYRAMINE (WITH SUGAR) 4 GM PACKET PO SCH (09:39)
[2020-12-13] MEDS: CHOLECALCIFEROL 25 MCG (1000 IU) TABLET PO SCH (09:39)
[2020-12-13] MEDS: ASPIRIN 81 MG PO SCH (09:39)
[2020-12-13] MEDS: VITAMIN E (DL,TOCOPHERYL ACET) 400 UNIT CAP PO SCH (09:40)
[2020-12-13] MEDS: VIT A,C & E-LUTEIN-MINERALS 1 EACH TAB PO SCH (09:40)
[2020-12-13] MEDS: THIAMINE 100 MG TAB PO SCH (09:40)
[2020-12-13] MEDS: VENLAFAXINE HCL ER 75 MG CAP PO SCH (09:40)
[2020-12-13] MEDS: MULTIVITAMINS, THERA 1 EACH TAB PO SCH (09:41)
[2020-12-13] MEDS: GABAPENTIN 100 MG CAP PO SCH ×3 (09:41→20:07)
[2020-12-13] MEDS: lisinopriL 20 MG TAB PO SCH (09:41)
[2020-12-13] MEDS: HEPARIN SODIUM,PORCINE/PF 5,000 UNIT/0.5 ML SYRINGE SQ SCH ×2 (09:41→20:07)
[2020-12-13] MEDS: MAGNESIUM OXIDE 400 MG TAB PO SCH (09:41)
[2020-12-13] MEDS: SPIRONOLACTONE 25 MG TAB PO SCH (09:42)
[2020-12-13] MEDS: POTASSIUM CHLORIDE ER 10 MEQ TAB.ER.PRT PO SCH (09:42)
[2020-12-13] MEDS: PANTOPRAZOLE 40 MG TABLET PO SCH (09:42)
[2020-12-13] MEDS: CYANOCOBALAMIN 500 MCG TAB PO SCH (09:42)
[2020-12-13] MEDS: FERROUS SULFATE 325 MG TAB PO SCH (09:42)
[2020-12-13] MEDS: FOLIC ACID 1 MG TAB PO SCH (09:54)
[2020-12-13] MEDS: ERTAPENEM 1 GM in SODIUM CHLORIDE 0.9% 50 ML IVPB SCH (09:54)
[2020-12-13] MEDS: LACTOBACILLUS ACIDOPH & BULGAR 1 EACH PACKET PO SCH ×2 (09:54→20:08)
[2020-12-13 10:41] LABS: Anion Gap 8.7 mmol/L (4.00-12.00); BUN/Creat Ratio 22.5 Ratio (12.00-20.00); Calcium 8.1 mg/dL (8.7-10.3); Carbon Dioxide 27.3 mmol/L (21.6-31.8); Non-African American GFR(CKD) 74.2 (60.0-200.0); Potassium 4.3 mmol/L (3.5-5.5)
[2020-12-13 11:56] LABS: Glucose,Whole Blood 180 mg/dL (75-99)
--- NOTE | 2020-12-13 15:32 | PN ---
PROGRESS NOTE DATE OF SERVICE: 12/13/2020. HISTORY: This 70-year-old woman was admitted with UTI with sepsis, also had recent ESBL E coli. Cultures are pending. No chest pain. No palpitations. Patient is feeling slightly better. PHYSICAL EXAMINATION: Alert and oriented x3. Pulse 54, blood pressure 158/77, respirations 16, temperature 97.9, pulse ox 94% on room air. HEENT: Conjunctivae normal. Neck is normal. Cardiac murmur. Respiration: The bases reveal scattered rhonchi. Abdomen is soft. ( ) LABS: WBC 7.2, hemoglobin 12. Glucose noted. ASSESSMENT: 1. Acute urinary tract infection with possible sepsis with possibly ESBL infection present on admission. 2. History of recent ESBL infection with Escherichia coli. 3. Diabetes type 2. 4. Change in mental status, acute metabolic encephalopathy, multifactorial. 5. History of deep vein thrombosis. 6. Fibromyalgia. 7. Hypertension. 8. Hyperlipidemia. 9. History of DJD. 10.History of of pneumonia. 11.History of sleep apnea. 12.History of transient ischemic attack. 13.History of migraine. 14.History of bilateral peripheral neuropathy. 15.History of chronic bronchitis. 16.History of sleep apnea, on CPAP. 17.History of urinary tract infection with sepsis, multiple episodes. 18.History of DJD. 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 20.History of cardiac murmur. 21.History of adrenal insufficiency. 22.History of MILAGROS. 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 24.History of appendectomy. 25.History of back surgery. 26.History of degenerative joint disease. 27.History of depression. RECOMMENDATIONS AND DISCUSSION: I recommend to continue current medications management and symptomatic treatment. Otherwise, at this time continue the antibiotics. Closely follow. The patient is improving significantly. Dr. Gonsales will follow. MMODL / IJN: [id number] /
[2020-12-13 17:10] LABS: Glucose,Whole Blood 129 mg/dL (75-99)
[2020-12-13 19:57] LABS: Glucose,Whole Blood 172 mg/dL (75-99)
[2020-12-13] MEDS: ATORVASTATIN 40 MG TAB PO SCH (20:07)
[2020-12-13] MEDS: FLUCONAZOLE 100 MG TAB PO SCH (20:07)
[2020-12-13] MEDS: METOPROLOL SUCCINATE (ER) 50 MG TAB.ER.24H PO SCH (20:07)
[2020-12-13] MEDS: INSULIN DETEMIR (LEVEMIR) 100 UNIT/ML SYR SQ SCH (20:13)
--- NOTE | 2020-12-14 00:14 | PN ---
PROGRESS NOTE DATE OF SERVICE: 12/13/2020 REASON FOR FOLLOWUP: Urinary tract infection. INTERVAL HISTORY: The patient is afebrile. The patient is breathing comfortably. The patient denies having any chest pain, shortness of breath. No cough. Abdominal pain has improved. No vomiting. No diarrhea. PHYSICAL EXAMINATION: Her blood pressure is 150/78 with a pulse of 57, temperature 98.7. She is 92% on room air. General description is an elderly female lying in bed in no distress. Respiratory system: Unlabored breathing, clear to auscultation anteriorly. Heart S1, S2. Regular rate and rhythm. Abdomen soft, no tenderness. Extremities: No edema of the feet. LABS: Hemoglobin 12.1, white count 7.7, BUN of 18, creatinine 0.8. DIAGNOSTIC IMPRESSION AND PLAN: Patient with recurrent urinary tract infection. Admitted to hospital with evidence of urinary tract infection. Cultures pending. Patient is covered with Invanz to which the patient clinically responded to continue and monitor clinical course closely. MMODL / IJN: [id number] /
[2020-12-14] MEDS: HYDROcodone/APAP 10-325MG 1 EACH TAB PO PRN (01:46)
[2020-12-14] MEDS: HYDROmorphone 0.5 MG/0.5 ML SYRINGE IVP PRN ×6 (02:54→21:14)
[2020-12-14 07:22] LABS: Glucose,Whole Blood 225 mg/dL (75-99)
[2020-12-14] MEDS: INSULIN ASPART (NovoLOG) 100 UNIT/ML VIAL SQ SCH ×7 (07:37→22:01)
[2020-12-14] MEDS: CYANOCOBALAMIN 500 MCG TAB PO SCH (07:55)
[2020-12-14] MEDS: LACTOBACILLUS ACIDOPH & BULGAR 1 EACH PACKET PO SCH ×2 (07:55→21:08)
[2020-12-14] MEDS: HYDROCORTISONE SUCCINATE 100 MG/2 ML VIAL IV SCH ×2 (07:56→17:24)
[2020-12-14] MEDS: BRIMONIDINE TARTRATE 0.2% DROPS 5 ML BTL RIGHT EYE SCH ×2 (07:56→23:44)
[2020-12-14] MEDS: MAGNESIUM OXIDE 400 MG TAB PO SCH (07:56)
[2020-12-14] MEDS: SPIRONOLACTONE 25 MG TAB PO SCH (07:56)
[2020-12-14] MEDS: lisinopriL 20 MG TAB PO SCH (07:56)
[2020-12-14] MEDS: CHOLECALCIFEROL 25 MCG (1000 IU) TABLET PO SCH (07:56)
[2020-12-14] MEDS: HEPARIN SODIUM,PORCINE/PF 5,000 UNIT/0.5 ML SYRINGE SQ SCH ×2 (07:57→21:09)
[2020-12-14] MEDS: FOLIC ACID 1 MG TAB PO SCH (07:57)
[2020-12-14] MEDS: MULTIVITAMINS, THERA 1 EACH TAB PO SCH (07:57)
[2020-12-14] MEDS: ASPIRIN 81 MG PO SCH (07:57)
[2020-12-14] MEDS: CHOLESTYRAMINE (WITH SUGAR) 4 GM PACKET PO SCH (07:57)
[2020-12-14] MEDS: GABAPENTIN 100 MG CAP PO SCH ×3 (07:57→21:09)
[2020-12-14] MEDS: POTASSIUM CHLORIDE ER 10 MEQ TAB.ER.PRT PO SCH (07:57)
[2020-12-14] MEDS: THIAMINE 100 MG TAB PO SCH (07:57)
[2020-12-14] MEDS: FERROUS SULFATE 325 MG TAB PO SCH (07:58)
[2020-12-14] MEDS: VITAMIN E (DL,TOCOPHERYL ACET) 400 UNIT CAP PO SCH (07:58)
[2020-12-14] MEDS: ERTAPENEM 1 GM in SODIUM CHLORIDE 0.9% 50 ML IVPB SCH (07:58)
[2020-12-14] MEDS: VIT A,C & E-LUTEIN-MINERALS 1 EACH TAB PO SCH (07:58)
[2020-12-14] MEDS: PANTOPRAZOLE 40 MG TABLET PO SCH (07:58)
[2020-12-14] MEDS: VENLAFAXINE HCL ER 75 MG CAP PO SCH (07:58)
[2020-12-14] MEDS ORDERED: METOCLOPRAMIDE 5 MG/ML 2 ML VIAL IVP PRN (09:56)
[2020-12-14] MEDS ORDERED: diphenhydrAMINE 50 MG/ML 1 ML VIAL IVP STA (09:57)
[2020-12-14] MEDS ORDERED: MAGNESIUM SULFATE-D5W PMX 1 GM in DEXTROSE/WATER 1 100ML.BAG IVPB ONE (09:57)
[2020-12-14] MEDS ORDERED: ACETAMINOPHEN IV (For NPO) 1,000 MG in EMPTY BAG 1 BAG IVPB STA (09:58)
[2020-12-14 11:53] LABS: Glucose,Whole Blood 208 mg/dL (75-99)
--- NOTE | 2020-12-14 14:53 | PN ---
PROGRESS NOTE DATE OF SERVICE: 12/14/2020 REASON FOR FOLLOWUP: Recurrent urinary tract infection. INTERVAL HISTORY: The patient is afebrile. The patient is breathing comfortably. Denies any chest pain or shortness of breath. No cough. No abdominal pain. No diarrhea or any urinary symptoms. PHYSICAL EXAMINATION: Blood pressure is 166/71, pulse of 88, [id number] 98.5. She is 99% on room air. General description is an elderly female lying in bed in no distress. Respiratory system: Unlabored breathing. Clear to auscultation anteriorly. Heart: S1, S2. Regular rate and rhythm. Abdomen soft, no tenderness. LABS: No new labs have been obtained today. Urine cultures came back negative. DIAGNOSTIC IMPRESSION AND PLAN: Patient with recurrent urinary tract infection infection admitted to the hospital with nausea, vomiting and urinary symptoms positive UA with concern for symptomatic urinary tract infection. However, patient clinically responding to the Invanz. Culture has been negative. Recommend no antibiotic on discharge. She has been advised to go back on suppressive Keflex UTI and continue supportive care. MMODL / IJN: [id number] /
--- NOTE | 2020-12-14 15:25 | P.PN ---
Subjective Progress Note Date: 12/14/20 Melissa Pena is a pleasant 70 yo F with PMH of recurrent UTI, adrenal insufficiency, T2DM, chronic migraine admitted with recurrent UTI, nausea, vomiting.Maintained on Invanz as per infectious disease. Afebrile, complains of right flank/groin pain, no frequency. Reports no sleep. Positive headache/sue brittany. Minimal nausea. No emesis, no abdominal pain. Denies chest pain, palpitations or shortness of breath. Objective - Vital Signs Vital signs: Vital Signs Temp 98.2 F 12/14/20 05:11 Pulse 61 12/14/20 05:11 Resp 18 12/14/20 05:11 BP 152/75 12/14/20 05:11 Pulse Ox 95 12/14/20 05:11 Intake & Output 12/13/20 12/14/20 12/14/20 18:59 06:59 18:59 Intake Total 1100 Balance 1100 Intake: Intake, IV Titration 100 Amount Ertapenem 1 gm In Sodium 100 Chloride 0.9% 50 ml @ 100 mls/hr IVPB DAILY [facility] Rx #:[id number] Oral 1000 Other: Voiding Method Bedside Commode Bedside Commode Bedside Commode # Voids 1 1 # Bowel Movements 1 1 - Exam PHYSICAL EXAMINATION: GENERAL: alert and oriented x3, no acute distress. Eyes: PERRL, EOMI, conjunctiva normal HENT: normocephalic, mucus membranes moist Neck: supple, no JVD Lungs: normal respiratory effort, no wheezes or rales CV: Regular rate and rhythm, no murmur. Peripheral pulses 2+ Abdomen: soft, nondistended, no organomegaly, positive bowel sounds. Right flank pain. Skin: warm and dry, no rashes. Neuro: A&Ox3, normal mood and affect. No focal deficits. - Labs CBC & Chem 7: 12/13/20 05:41 12/13/20 05:41 Labs: Abnormal Lab Results - Last 24 Hours (Table) 12/13/20 12/13/20 12/13/20 Range/Units 05:41 11:49 17:09 BUN/Creatinine Ratio 22.50 H (12.00-20.00) Ratio Glucose 196 H (70-110) mg/dL POC Glucose (mg/dL) 180 H 129 H (75-99) mg/dL Calcium 8.1 L (8.7-10.3) mg/dL 12/13/20 12/14/20 Range/Units 19:55 07:14 BUN/Creatinine Ratio (12.00-20.00) Ratio Glucose (70-110) mg/dL POC Glucose (mg/dL) 172 H 225 H (75-99) mg/dL Calcium (8.7-10.3) mg/dL Microbiology - Last 24 Hours (Table) 12/11/20 22:14 Blood Culture - Preliminary Blood No Growth after 48 hours 12/11/20 14:28 Urine Culture - Final Urine,Clean Catch Assessment and Plan Assessment: 1. Recurrent UTI, history of ESBL VRE. 2. Adrenal insufficiency. 3. T2DM, hyperglycemic 4. Chronic migraine. Chronic neck pain. 5. CAD Plan: Continue on current medication regime ,monitoring and symptomatic treatment. Close monitoring of electrolytes, renal function with repeat labs ordered for tomorrow. Maintain antibiotics as per ID. Migraine cocktail. Reglan prn nausea. Discharge planning in progress in the next 24-48 hours, pending final DC recommendations and clearance from ID. The impression and plan of care has been dictated as directed. : I performed a history and examination of this patient, discussed the same with the dictator. I agree with the dictator's note ,documented as a scribe. Any additional findings or plans will be noted.
[2020-12-14 17:15] LABS: Glucose,Whole Blood 176 mg/dL (75-99)
[2020-12-14] MEDS: FLUCONAZOLE 100 MG TAB PO SCH (21:08)
[2020-12-14] MEDS: ATORVASTATIN 40 MG TAB PO SCH (21:09)
[2020-12-14] MEDS: METOPROLOL SUCCINATE (ER) 50 MG TAB.ER.24H PO SCH (21:09)
[2020-12-14 21:59] LABS: Glucose,Whole Blood 222 mg/dL (75-99)
[2020-12-14] MEDS: INSULIN DETEMIR (LEVEMIR) 100 UNIT/ML SYR SQ SCH (22:01)
[2020-12-15] MEDS: HYDROmorphone 0.5 MG/0.5 ML SYRINGE IVP PRN ×6 (00:09→14:39)
[2020-12-15] MEDS: HYDROCORTISONE SUCCINATE 100 MG/2 ML VIAL IV SCH ×4 (00:09→17:35)
[2020-12-15 05:25] LABS: Basophils % (A) 0 %; Eosinophils # (A) 0.1 k/uL (0-0.7); Eosinophils % (A) 1 %; HCT 36.8 % (34.0-46.0); HGB 12.5 gm/dL (11.4-16.0); Lymphocytes # (A) 1.8 k/uL (1.0-4.8); Lymphocytes % (A) 18 %; MCH 30.8 pg (25.0-35.0); MCV 90.5 fL (80.0-100.0); Mean Platelet Volume 8.1; Monocytes # (A) 0.4 k/uL (0-1.0); Monocytes % (A) 4 %; Neutrophils # (A) 7.5 k/uL (1.3-7.7); Neutrophils % (A) 75 %; Platelet Count 182 k/uL (150-450); RBC 4.06 m/uL (3.80-5.40); RDW 13.5 % (11.5-15.5)
[2020-12-15 07:13] LABS: Glucose,Whole Blood 75 mg/dL (75-99)
[2020-12-15] MEDS: INSULIN ASPART (NovoLOG) 100 UNIT/ML VIAL SQ SCH ×7 (07:17→21:15)
[2020-12-15] MEDS: MULTIVITAMINS, THERA 1 EACH TAB PO SCH (07:26)
[2020-12-15] MEDS: CYANOCOBALAMIN 500 MCG TAB PO SCH (07:26)
[2020-12-15] MEDS: ERTAPENEM 1 GM in SODIUM CHLORIDE 0.9% 50 ML IVPB SCH (07:26)
[2020-12-15] MEDS: SPIRONOLACTONE 25 MG TAB PO SCH (07:26)
[2020-12-15] MEDS: MAGNESIUM OXIDE 400 MG TAB PO SCH (07:27)
[2020-12-15] MEDS: PANTOPRAZOLE 40 MG TABLET PO SCH (07:27)
[2020-12-15] MEDS: POTASSIUM CHLORIDE ER 10 MEQ TAB.ER.PRT PO SCH (07:27)
[2020-12-15] MEDS: THIAMINE 100 MG TAB PO SCH (07:27)
[2020-12-15] MEDS: CHOLECALCIFEROL 25 MCG (1000 IU) TABLET PO SCH (07:27)
[2020-12-15] MEDS: LACTOBACILLUS ACIDOPH & BULGAR 1 EACH PACKET PO SCH ×2 (07:27→20:24)
[2020-12-15] MEDS: ASPIRIN 81 MG PO SCH (07:27)
[2020-12-15] MEDS: lisinopriL 20 MG TAB PO SCH (07:27)
[2020-12-15] MEDS: FERROUS SULFATE 325 MG TAB PO SCH (07:27)
[2020-12-15] MEDS: GABAPENTIN 100 MG CAP PO SCH ×3 (07:27→21:14)
[2020-12-15] MEDS: VENLAFAXINE HCL ER 75 MG CAP PO SCH (07:28)
[2020-12-15] MEDS: CHOLESTYRAMINE (WITH SUGAR) 4 GM PACKET PO SCH (07:28)
[2020-12-15] MEDS: VITAMIN E (DL,TOCOPHERYL ACET) 400 UNIT CAP PO SCH (07:28)
[2020-12-15] MEDS: VIT A,C & E-LUTEIN-MINERALS 1 EACH TAB PO SCH (07:28)
[2020-12-15] MEDS: FOLIC ACID 1 MG TAB PO SCH (07:28)
[2020-12-15] MEDS: HEPARIN SODIUM,PORCINE/PF 5,000 UNIT/0.5 ML SYRINGE SQ SCH ×2 (07:28→21:15)
[2020-12-15] MEDS: BRIMONIDINE TARTRATE 0.2% DROPS 5 ML BTL RIGHT EYE SCH ×2 (07:29→20:25)
[2020-12-15] MEDS: HYDROcodone/APAP 10-325MG 1 EACH TAB PO PRN ×3 (07:30→23:05)
[2020-12-15 11:42] LABS: Glucose,Whole Blood 182 mg/dL (75-99)
[2020-12-15 11:56] VITALS: RESP 16
[2020-12-15 14:02] LABS: Anion Gap 7.9 mmol/L (4.00-12.00); BUN/Creat Ratio 27.14 Ratio (12.00-20.00); Calcium 8.4 mg/dL (8.7-10.3); Carbon Dioxide 33.1 mmol/L (21.6-31.8); Non-African American GFR(CKD) 87.2 (60.0-200.0); Potassium 3.4 mmol/L (3.5-5.5)
[2020-12-15] MEDS ORDERED: MAGNESIUM SULFATE-D5W PMX 1 GM in DEXTROSE/WATER 1 100ML.BAG IVPB ONE (16:27)
[2020-12-15] MEDS ORDERED: ACETAMINOPHEN IV (For NPO) 1,000 MG in EMPTY BAG 1 BAG IVPB STA (16:28)
[2020-12-15] MEDS ORDERED: diphenhydrAMINE 50 MG/ML 1 ML VIAL IVP STA (16:28)
[2020-12-15] MEDS ORDERED: Potassium Replacement Protocol 1 EACH MISC MISCELLANE PRN (16:31)
--- NOTE | 2020-12-15 17:22 | P.PN ---
Subjective Progress Note Date: 12/15/20 Melissa Pena is a pleasant 70 yo F with PMH of recurrent UTI, adrenal insufficiency, T2DM, chronic migraine admitted with recurrent UTI, nausea, vomiting.Maintained on Invanz as per infectious disease. Afebrile, complains of right flank/groin pain, no frequency. Reports no sleep. Positive headache/sue brittany. Minimal nausea. No emesis, no abdominal pain. Denies chest pain, palpitations or shortness of breath. 12/15/2020 feels better this morning, intubated in the hallway last night with spouse. Right flank/groin pain improving. Continues on antibiotics as per infectious disease. Potassium 3.4. Reports migraine improving. Objective - Vital Signs Vital signs: Vital Signs Temp 98.6 F 12/15/20 11:56 Pulse 51 L 12/15/20 11:56 Resp 16 12/15/20 11:56 BP 170/78 12/15/20 11:56 Pulse Ox 96 12/15/20 11:56 Intake & Output 12/14/20 12/15/20 12/15/20 18:59 06:59 18:59 Intake Total 240 Balance 240 Intake: Oral 240 Other: Voiding Method Bedside Commode Bedside Commode Bedside Commode # Voids 3 # Bowel Movements 1 - Exam PHYSICAL EXAMINATION: GENERAL: alert and oriented x3, lying flat in bed, no acute distress. Eyes: PERRL, EOMI, conjunctiva normal HENT: normocephalic, mucus membranes moist Lungs: normal respiratory effort, no wheezes or rales, bilateral bases diminished CV: Regular rate and rhythm, no murmur. Peripheral pulses 2+ Abdomen: soft, nondistended, no organomegaly, positive bowel sounds. Right flank/groin pain. Skin: warm and dry, no rashes. Neuro: A&Ox3, normal mood and affect. No focal deficits. - Labs CBC & Chem 7: 12/15/20 04:46 12/15/20 04:46 Labs: Abnormal Lab Results - Last 24 Hours (Table) 12/14/20 12/14/20 12/15/20 Range/Units 17:04 21:48 04:46 Potassium 3.4 L (3.5-5.5) mmol/L Carbon Dioxide 33.1 H (21.6-31.8) mmol/L BUN/Creatinine Ratio 27.14 H (12.00-20.00) Ratio Glucose 111 H (70-110) mg/dL POC Glucose (mg/dL) 176 H 222 H (75-99) mg/dL Calcium 8.4 L (8.7-10.3) mg/dL 12/15/20 Range/Units 11:34 Potassium (3.5-5.5) mmol/L Carbon Dioxide (21.6-31.8) mmol/L BUN/Creatinine Ratio (12.00-20.00) Ratio Glucose (70-110) mg/dL POC Glucose (mg/dL) 182 H (75-99) mg/dL Calcium (8.7-10.3) mg/dL Microbiology - Last 24 Hours (Table) 12/11/20 22:14 Blood Culture - Preliminary Blood No Growth after 72 hours Assessment and Plan Assessment: 1. Recurrent UTI, history of ESBL VRE. 2. Adrenal insufficiency. 3. T2DM, hyperglycemic 4. Chronic migraine. Chronic neck pain. 5. CAD Plan: Continue on current medication regime ,monitoring and symptomatic treatment. Taper of hydrocortisone initiated. Potassium supplement as per replacement protocol previously ordered. Close monitoring of electrolytes, renal function with repeat labs ordered for tomorrow. Continue on antibiotics as per ID. Repeat Migraine cocktail. Discharge planning in progress for tomorrow pending final DC recommendations and clearance from ID. The impression and plan of care has been dictated as directed. : I performed a history and examination of this patient, discussed the same with the dictator. I agree with the dictator's note ,documented as a scribe. Any additional findings or plans will be noted.
[2020-12-15 17:23] LABS: Glucose,Whole Blood 209 mg/dL (75-99)
[2020-12-15] MEDS: METOPROLOL SUCCINATE (ER) 50 MG TAB.ER.24H PO SCH (20:24)
[2020-12-15] MEDS: ATORVASTATIN 40 MG TAB PO SCH (20:24)
[2020-12-15] MEDS: FLUCONAZOLE 100 MG TAB PO SCH (20:25)
[2020-12-15 20:54] LABS: Glucose,Whole Blood 234 mg/dL (75-99)
[2020-12-15] MEDS: INSULIN DETEMIR (LEVEMIR) 100 UNIT/ML SYR SQ SCH (21:15)
[2020-12-15] MEDS: BUTALB/APAP/CAFF 50-325-40MG TAB PO PRN (21:32)
[2020-12-16] MEDS: HYDROCORTISONE SUCCINATE 100 MG/2 ML VIAL IV SCH ×2 (00:22→07:58)
[2020-12-16] MEDS: HYDROcodone/APAP 10-325MG 1 EACH TAB PO PRN ×3 (03:05→12:03)
--- NOTE | 2020-12-16 06:09 | PN ---
PROGRESS NOTE DATE OF SERVICE: 12/15/2020 REASON FOR FOLLOWUP: Urinary tract infection. INTERVAL HISTORY: The patient is afebrile. The patient is breathing comfortably. The patient denies having any chest pain, shortness of breath or cough. No nausea, vomiting, abdominal pain or diarrhea. Overall feeling better. PHYSICAL EXAMINATION: Blood pressure 162/86, pulse of 66, temperature 98.5, she is 95% on room air. General description is an elderly female lying in bed in no distress. Respiratory system: Unlabored breathing, clear to auscultation anteriorly. Heart S1, S2. Regular rate and rhythm. Abdomen is soft, no tenderness. LABS: Hemoglobin is 12.4, white count 10, BUN of 19, creatinine 0.7. DIAGNOSTIC IMPRESSION AND PLAN: Patient admitted to hospital with acute nausea, vomiting, abdominal pain, diarrhea and urinary symptom, concern for asymptomatic urinary tract infection. However, the patient's urine culture is currently negative. Underlying UTI has been adequately treated with no need for antibiotic on discharge. MMODL / IJN: [id number] /
[2020-12-16 06:53] LABS: Glucose,Whole Blood 164 mg/dL (75-99)
[2020-12-16] MEDS: POTASSIUM CHLORIDE ER 10 MEQ TAB.ER.PRT PO SCH (07:38)
[2020-12-16] MEDS: CHOLECALCIFEROL 25 MCG (1000 IU) TABLET PO SCH (07:38)
[2020-12-16] MEDS: MAGNESIUM OXIDE 400 MG TAB PO SCH (07:38)
[2020-12-16] MEDS: THIAMINE 100 MG TAB PO SCH (07:41)
[2020-12-16] MEDS: SPIRONOLACTONE 25 MG TAB PO SCH (07:41)
[2020-12-16] MEDS: LACTOBACILLUS ACIDOPH & BULGAR 1 EACH PACKET PO SCH (07:41)
[2020-12-16] MEDS: CYANOCOBALAMIN 500 MCG TAB PO SCH (07:41)
[2020-12-16] MEDS: PANTOPRAZOLE 40 MG TABLET PO SCH (07:41)
[2020-12-16] MEDS: MULTIVITAMINS, THERA 1 EACH TAB PO SCH (07:41)
[2020-12-16] MEDS: FERROUS SULFATE 325 MG TAB PO SCH (07:41)
[2020-12-16] MEDS: HEPARIN SODIUM,PORCINE/PF 5,000 UNIT/0.5 ML SYRINGE SQ SCH (07:42)
[2020-12-16] MEDS: CHOLESTYRAMINE (WITH SUGAR) 4 GM PACKET PO SCH (07:42)
[2020-12-16] MEDS: FOLIC ACID 1 MG TAB PO SCH (07:42)
[2020-12-16] MEDS: GABAPENTIN 100 MG CAP PO SCH (07:42)
[2020-12-16] MEDS: INSULIN ASPART (NovoLOG) 100 UNIT/ML VIAL SQ SCH ×2 (07:45→07:46)
[2020-12-16] MEDS: ASPIRIN 81 MG PO SCH (07:45)
[2020-12-16] MEDS: BRIMONIDINE TARTRATE 0.2% DROPS 5 ML BTL RIGHT EYE SCH (07:47)
[2020-12-16] MEDS: lisinopriL 20 MG TAB PO SCH (07:56)
[2020-12-16] MEDS: VENLAFAXINE HCL ER 75 MG CAP PO SCH (07:57)
[2020-12-16] MEDS: VITAMIN E (DL,TOCOPHERYL ACET) 400 UNIT CAP PO SCH (07:57)
[2020-12-16] MEDS: VIT A,C & E-LUTEIN-MINERALS 1 EACH TAB PO SCH (07:57)
[2020-12-16] MEDS: ERTAPENEM 1 GM in SODIUM CHLORIDE 0.9% 50 ML IVPB SCH (07:58)
[2020-12-16] MEDS: BUTALB/APAP/CAFF 50-325-40MG TAB PO PRN (08:27)
[2020-12-16 11:39] VITALS: BP 159/80; PULSE 64; TEMP 98.2
[2020-12-16 11:55] LABS: Glucose,Whole Blood 189 mg/dL (75-99)
[2020-12-16 12:53] LABS: Anion Gap 7.9 mmol/L (4.00-12.00); BUN/Creat Ratio 28.57 Ratio (12.00-20.00); Calcium 8.4 mg/dL (8.7-10.3); Carbon Dioxide 32.1 mmol/L (21.6-31.8); Non-African American GFR(CKD) 87.2 (60.0-200.0); Potassium 3.8 mmol/L (3.5-5.5)
--- NOTE | 2020-12-16 14:38 | PN ---
PROGRESS NOTE DATE OF SERVICE: 12/16/2020 REASON FOR FOLLOWUP: Recurrent urinary tract infection. INTERVAL HISTORY: The patient is afebrile. The patient is breathing comfortably. The patient denies having any chest pain. No shortness of breath. No cough. No nausea, vomiting, abdominal pain, diarrhea. PHYSICAL EXAMINATION: Blood pressure is 159/80, pulse of 64, temperature 98.2. She is 94% on room air. General description is an elderly female lying in bed in no distress. Respiratory system: Unlabored breathing, clear to auscultation anteriorly. Heart S1, S2. Regular rate and rhythm. Abdomen soft, no tenderness. LABS: BUN of 10, creatinine 0.7. Cultures have been negative in this patient. DIAGNOSTIC IMPRESSION AND PLAN: Patient with recurrent urinary tract infection. Admitted to the hospital with urinary symptoms and abdominal pain and diarrhea in this patient clinically responded to the Invanz. However, culture has been negative. Possible mild cystitis that has been adequately treated. No need for antibiotic on discharge. MMODL / IJN: [id number] /
--- NOTE | 2020-12-16 15:33 | CDI ---
Documentation Clarification Form Date: 12/16/2020 02:45:23 PM From: Melissa Vincent RN, CCDS Admit Date: 12/11/2020 03:02:00 PM Patient Name: Melissa Pena Visit Number: [id number] Discharge Date: 12/16/2020 01:30:00 PM ATTENTION: The Clinical Documentation Specialists (CDI) and [facility] Coding Staff appreciate your assistance in clarifying documentation. Please respond to the clarification below the line at the bottom and electronically sign. The CDI & [facility] Coding staff will review the response and follow-up if needed. Please note: Queries are made part of the Legal Health Record. If you have any questions, please contact the author of this message via ITS. Dr. Andrew Gonsales Possible sepsis is documented in the H/P on 12/11 to 12/13, but is not noted in subsequent documentation on 12/14 or 12/15/20. Clarification is requested. History/Risk Factors: UTI,TIA, Diabetes mellitus, Adrenal insufficiency Clinical Indicators: 70-year-old female who present on 12/11 with complaints of nausea, vomiting, and weakness. She has past medical history of recurrent episodes of UTI. She has chronic right-sided flank pain. 12/11 Vital sign: 93/62 124 20 98.1 12/11 Labs: WBC 10.1, Lactic acid 2.1; UA: Ur Leukocyte Esterase Large, WBC 24, 12/11 Urine Culture: negative 12/11 Blood Culture: No growth after 96 hours 12/14 ID progress note: Admitted to the hospital with nausea, vomiting and urinary symptoms positive UA with concern for symptomatic urinary tract infection. Patient is clinically responding to the Invanz. Culture has been negative. Treatment: .9 NS 1,000 Bolus Invanz 1 GM IVPB Daily 12/11-12/16 Please clarify if the Sepsis is: [ ] Sepsis, confirmed, resolved [ ] Sepsis, ruled out [ ] Other condition, please specify [ ] Unable to determine (Template Last Revised: August 2020) Sepsis, confirmed, resolved MTDD
--- NOTE | 2020-12-17 12:24 | P.DS ---
Providers Date of admission: 12/11/20 15:02 Expected date of discharge: 12/16/20 Attending physician: Andrew Gonsales MD Consults: 12/11/20 15:01 Consult Physician Urgent Consulting Provider: Chalino Osman Consult Reason/Comments: Urinary tract infection Do you want consulting provider notified?: Yes Primary care physician: Andrew Gonsales MD Hospital Course: Final Diagnoses: 1. Recurrent UTI, history of ESBL VRE. Sepsis ruled out. 2. Adrenal insufficiency. 3. T2DM, hyperglycemic 4. Chronic migraine. Chronic neck pain. 5. CAD Hospital course:Melissa Pena is a pleasant 70 yo F with PMH of recurrent UTI, adrenal insufficiency, T2DM, chronic migraine admitted with recurrent UTI, nausea, vomiting.Maintained on Invanz as per infectious disease. Afebrile, complains of right flank/groin pain, no frequency. Reports no sleep. Positive headache/migraine. Minimal nausea. No emesis, no abdominal pain. Denies chest pain, palpitations or shortness of breath. 12/15/2020 feels better this morning, intubated in the hallway last night with spouse. Right flank/groin pain improving. Continues on antibiotics as per infectious disease. Potassium 3.4. Reports migraine improving. Significant clinical improvement. Cleared by infectious disease for discharge. Patient will be discharged home in a stable condition with guarded prognosis. Microbiology 12/11/20 22:14 Blood Blood Culture - Preliminary No Growth after 120 hours 12/11/20 14:28 Urine,Clean Catch Urine Culture - Final The impression and plan of care has been dictated as directed. : I performed a history and examination of this patient, discussed the same with the dictator. I agree with the dictator's note ,documented as a scribe. Any additional findings or plans will be noted. Patient Condition at Discharge: Stable Plan - Discharge Summary Discharge Rx Participant: No New Discharge Prescriptions: New Fluconazole [Diflucan] 100 mg PO HS #5 tab Nystatin 100,000 Unit/gm Powd [Mycostatin Powder] 1 applic TOPICAL TID #15 g Continue Cholecalciferol [Vitamin D3 (25 Mcg = 1000 Iu)] 75 mcg PO DAILY Metoprolol Succinate (ER) [Toprol XL] 50 mg PO HS Meclizine [Antivert] 25 mg PO QID PRN PRN Reason: Vertigo Aspirin 81 mg PO DAILY #0 Ferrous Sulfate [Iron (65 MG Elemental)] 325 mg PO DAILY Vitamin B-Complex Drops 1 ml PO BID Thiamine [Vitamin B-1] 100 mg PO DAILY Folic Acid 0.4 mg PO DAILY Multivitamins, Thera Liquid [Theragran Liquid (formulary)] 30 ml PO DAILY L.acidoph,Paracasei, B.lactis [Probiotic] 2 cap PO BID Melatonin 5 mg PO HS PRN PRN Reason: Insomnia Potassium 99 mg PO DAILY Atorvastatin [Lipitor] 40 mg PO HS #30 tab Venlafaxine HCl [Effexor XR] 75 mg PO DAILY Magnesium Oxide [Mag-Ox] 400 mg PO DAILY Gabapentin [Neurontin] 100 mg PO TID #9 cap HYDROcodone/APAP 10-325MG [[place] 10-325] 1 tab PO QID PRN PRN Reason: Pain lisinopriL 40 mg PO DAILY Spironolactone 50 mg PO DAILY C,E,Zinc,Copper 11/Usfoe1w/Lut [Ocuvite Adult 50 Plus Softgel] 1 cap PO DAILY Cyanocobalamin (Vitamin B-12) [Vitamin B-12] 1,000 mcg PO DAILY Vitamin E 400 unit PO DAILY Ondansetron HCl [Zofran] 4 mg PO Q6H PRN PRN Reason: Nausea Cholestyramine (with Sugar) [Questran Packet] 4 gm PO DAILY Cranberry [id number] Cap 1 cap PO BID Brimonidine Tartrate [Alphagan P 0.2% Ophth Soln] 1 drop RIGHT EYE BID Promethazine HCl [Phenergan Syrup] 6.25 mg PO Q6H PRN PRN Reason: Nausea Butalb/APAP/Caff 50-325-40Mg [Fioricet 50-325-40] 1 tab PO TID PRN PRN Reason: Migraine Headache Insulin Aspart [NovoLOG Flexpen] 26 unit SQ AC-SUPPER Pantoprazole Sodium [Protonix] 40 mg PO DAILY Hydrocortisone [Cortef] 5 mg PO HS #0 Hydrocortisone [Cortef] 10 mg PO DAILY@1200 #0 Hydrocortisone [Cortef] 15 mg PO DAILY #0 Nystatin 1 applic TOPICAL DAILY PRN #15 gram PRN Reason: Skin Irritation Estrogens, Conjugated Cream [Premarin Cream] 1 applicator VAGINAL DAILY Glucagon [Gvoke Pfs 1-Pack Syringe] 1 mg SQ ONCE PRN PRN Reason: severe hypoglycemia Insulin Aspart [NovoLOG Flexpen] See Protocol SQ AC-TID Insulin Aspart [NovoLOG Flexpen] 11 units SQ AC-BRKFST Insulin Aspart [NovoLOG Flexpen] 20 units SQ AC-LUNCH Metoclopramide HCl [Reglan] 5 mg PO TID PRN PRN Reason: Nausea Cephalexin [Keflex] 250 mg PO HS Insulin Glargine,Hum.rec.anlog [Lantus Solostar] 30 unit SQ HS Discharge Medication List Cholecalciferol [Vitamin D3 (25 Mcg = 1000 Iu)] 75 mcg PO DAILY 12/01/14 [History] Metoprolol Succinate (ER) [Toprol XL] 50 mg PO HS 07/06/17 [History] Meclizine [Antivert] 25 mg PO QID PRN 11/26/17 [History] Aspirin 81 mg PO DAILY #0 07/02/18 [Rx] Ferrous Sulfate [Iron (65 MG Elemental)] 325 mg PO DAILY 10/08/18 [History] Folic Acid 0.4 mg PO DAILY 10/08/18 [History] L.acidoph,Paracasei, B.lactis [Probiotic] 2 cap PO BID 10/08/18 [History] Melatonin 5 mg PO HS PRN 10/08/18 [History] Multivitamins, Thera Liquid [Theragran Liquid (formulary)] 30 ml PO DAILY 10/08/18 [History] Potassium 99 mg PO DAILY 10/08/18 [History] Thiamine [Vitamin B-1] 100 mg PO DAILY 10/08/18 [History] Vitamin B-Complex Drops 1 ml PO BID 10/08/18 [History] Atorvastatin [Lipitor] 40 mg PO HS #30 tab 11/16/18 [Rx] Venlafaxine HCl [Effexor XR] 75 mg PO DAILY 11/08/19 [History] Magnesium Oxide [Mag-Ox] 400 mg PO DAILY 12/06/19 [History] Gabapentin [Neurontin] 100 mg PO TID #9 cap 03/24/20 [Rx] HYDROcodone/APAP 10-325MG [[place] 10-325] 1 tab PO QID PRN 04/16/20 [History] C,E,Zinc,Copper 11/Jdhch9f/Lut [Ocuvite Adult 50 Plus Softgel] 1 cap PO DAILY 06/25/20 [History] Cyanocobalamin (Vitamin B-12) [Vitamin B-12] 1,000 mcg PO DAILY 06/25/20 [History] Ondansetron HCl [Zofran] 4 mg PO Q6H PRN 06/25/20 [History] Spironolactone 50 mg PO DAILY 06/25/20 [History] Vitamin E 400 unit PO DAILY 06/25/20 [History] lisinopriL 40 mg PO DAILY 06/25/20 [History] Brimonidine Tartrate [Alphagan P 0.2% Ophth Soln] 1 drop RIGHT EYE BID 11/26/20 [History] Butalb/APAP/Caff 50-325-40Mg [Fioricet 50-325-40] 1 tab PO TID PRN 11/26/20 [History] Cholestyramine (with Sugar) [Questran Packet] 4 gm PO DAILY 11/26/20 [History] Cranberry [id number] Cap 1 cap PO BID 11/26/20 [History] Estrogens, Conjugated Cream [Premarin Cream] 1 applicator VAGINAL DAILY 11/26/20 [History] Glucagon [Gvoke Pfs 1-Pack Syringe] 1 mg SQ ONCE PRN 11/26/20 [History] Insulin Aspart [NovoLOG Flexpen] 11 units SQ AC-BRKFST 11/26/20 [History] Insulin Aspart [NovoLOG Flexpen] 20 units SQ AC-LUNCH 11/26/20 [History] Insulin Aspart [NovoLOG Flexpen] 26 unit SQ AC-SUPPER 11/26/20 [History] Insulin Aspart [NovoLOG Flexpen] See Protocol SQ AC-TID 11/26/20 [History] Metoclopramide HCl [Reglan] 5 mg PO TID PRN 11/26/20 [History] Pantoprazole Sodium [Protonix] 40 mg PO DAILY 11/26/20 [History] Promethazine HCl [Phenergan Syrup] 6.25 mg PO Q6H PRN 11/26/20 [History] Cephalexin [Keflex] 250 mg PO HS 12/11/20 [History] Insulin Glargine,Hum.rec.anlog [Lantus Solostar] 30 unit SQ HS 12/11/20 [ History] Fluconazole [Diflucan] 100 mg PO HS #5 tab 12/16/20 [Rx] Hydrocortisone [Cortef] 5 mg PO HS #0 12/16/20 [Rx] Hydrocortisone [Cortef] 10 mg PO DAILY@1200 #0 12/16/20 [Rx] Hydrocortisone [Cortef] 15 mg PO DAILY #0 12/16/20 [Rx] Nystatin 1 applic TOPICAL DAILY PRN #15 gram 12/16/20 [Rx] Nystatin 100,000 Unit/gm Powd [Mycostatin Powder] 1 applic TOPICAL TID #15 g 12/16/20 [Rx] Follow up Appointment(s)/Referral(s): Andrew Gonsales MD [Primary Care Provider] - 12/23/20 12:30 pm [facility], [NON-STAFF] - 1-2 Days Patient Instructions/Handouts: Nystatin (On the skin), Urinary Tract Infection in Women (DC), Fall Prevention for Older Adults (DC), Type 2 Diabetes in the Older Adult (DC) Activity/Diet/Wound Care/Special Instructions: Hydrocortisone taper/Cortef 5 mg tablets; take additional 5 mg tab, at breakfast, at lunch, at dinner 2 days, then take additional 5 mg tab,at breakfast & at dinner, X 2 days, then take additional 5 mg tab,at breakfast,X 2 days, then continue home maintenance doses as prev. ordered. Discharge Disposition: HOME SELF-CARE
== END 2020-12-16 13:30 | disposition home or self-care (01) | DRG 871 ==
LOC: EC 12:53 → 5NMEDONC 15:02
PROVIDERS: ADMIT Family Medicine; ATTEND Family Medicine
DX: A41.9 Sepsis, unspecified organism (principal); G93.41 Metabolic encephalopathy; E27.40 Unspecified adrenocortical insufficiency; N39.0 Urinary tract infection, site not specified; R19.7 Diarrhea, unspecified; Z82.49 Family history of ischemic heart disease and other diseases of the circulatory system; Z83.3 Family history of diabetes mellitus; Z82.3 Family history of stroke; E78.5 Hyperlipidemia, unspecified; M79.7 Fibromyalgia; Z87.891 Personal history of nicotine dependence; Z80.49 Family history of malignant neoplasm of other genital organs; I10 Essential (primary) hypertension; Z87.01 Personal history of pneumonia (recurrent); Z86.73 Personal history of transient ischemic attack (TIA), and cerebral infarction without residual deficits; G43.909 Migraine, unspecified, not intractable, without status migrainosus; M19.90 Unspecified osteoarthritis, unspecified site; Z86.14 Personal history of Methicillin resistant Staphylococcus aureus infection; Z90.710 Acquired absence of both cervix and uterus; Z88.1 Allergy status to other antibiotic agents; Z87.440 Personal history of urinary (tract) infections; E11.65 Type 2 diabetes mellitus with hyperglycemia; E11.42 Type 2 diabetes mellitus with diabetic polyneuropathy; J42 Unspecified chronic bronchitis; F32.9 Major depressive disorder, single episode, unspecified; G89.29 Other chronic pain; M54.2 Cervicalgia; I25.10 Atherosclerotic heart disease of native coronary artery without angina pectoris; Z79.82 Long term (current) use of aspirin; Z86.19 Personal history of other infectious and parasitic diseases; Z86.718 Personal history of other venous thrombosis and embolism; Z87.442 Personal history of urinary calculi; Z90.49 Acquired absence of other specified parts of digestive tract; Z79.4 Long term (current) use of insulin
CPT/HCPCS: 36415; 71046; 80048; 80053; 81001; 83605; 83735; 85025; 87040; 87086; 87635; 93005; 96374; 96375; 99285

== ENCOUNTER 2020-12-17 23:23 | Inpatient (IN) | payer MEDICARE, BC ==
[2020-12-18] MEDS ORDERED: HYDROcodone/APAP 10-325MG 1 EACH TAB PO ONE (00:04)
--- NOTE | 2020-12-18 00:18 | XR ---
EXAMINATION TYPE: XR forearm RT DATE OF EXAM: 12/18/2020 COMPARISON: NONE HISTORY: Forearm pain TECHNIQUE: 2 views FINDINGS: Radius and ulna appear intact. I see no fracture. There is widening of the scapholunate joint space consistent with old ligamentous injury. There is pr obably an old fracture of the ulnar styloid process. The elbow joint is intact. IMPRESSION: Evidence of old injury at the wrist. No acute fracture seen.
[2020-12-18] MEDS ORDERED: ONDANSETRON ODT 4 MG TAB PO STA (00:24)
[2020-12-18] MEDS ORDERED: HYDROmorphone 0.5 MG/0.5 ML SYRINGE IM STA (00:45)
[2020-12-18 00:57] LABS: Basophils # (A) 0.1 k/uL (0-0.2); Basophils % (A) 1 %; Eosinophils # (A) 0.2 k/uL (0-0.7); Eosinophils % (A) 2 %; HCT 43.4 % (34.0-46.0); HGB 14.6 gm/dL (11.4-16.0); Lymphocytes # (A) 1.9 k/uL (1.0-4.8); Lymphocytes % (A) 19 %; MCH 30.5 pg (25.0-35.0); MCHC 33.7 g/dL (31.0-37.0); MCV 90.6 fL (80.0-100.0); Mean Platelet Volume 7.8; Monocytes # (A) 0.6 k/uL (0-1.0); Monocytes % (A) 6 %; Neutrophils # (A) 7.1 k/uL (1.3-7.7); Neutrophils % (A) 71 %; Platelet Count 213 k/uL (150-450); RBC 4.79 m/uL (3.80-5.40); RDW 13.7 % (11.5-15.5); WBC 9.9 k/uL (3.8-10.6)
[2020-12-18 01:18] LABS: Amorphous Sediment,Urine Rare /hpf; Appearance,Urine Clear (Clear); Bilirubin,Urine Negative (Negative); Blood,Urine Negative (Negative); Color,Urine Yellow; Glucose,Urine (UA) Negative (Negative); Ketones,Urine 2+ (Negative); Leukocyte Esterase,Urine Negative (Negative); Mucus,Urine Moderate /hpf; Nitrite,Urine Negative (Negative); Protein,Urine 1+ (Negative); RBC,Urine <1 /hpf (0-5); Squamous Epithelial Cell,Urine <1 /hpf (0-4); WBC,Urine 1 /hpf (0-5)
[2020-12-18 01:18] LABS: African American GFR (CKD) >90 (>60 ml/min/1.73 sqM); Anion Gap 8 mmol/L; Blood Urea Nitrogen 28 mg/dL (7-17); Carbon Dioxide 26 mmol/L (22-30); Chloride 105 mmol/L (98-107); Glucose 173 mg/dL (74-99); Non-African American GFR(CKD) 87 (>60 ml/min/1.73 sqM); Potassium 3.7 mmol/L (3.5-5.1); Sodium 139 mmol/L (137-145)
[2020-12-18] MEDS ORDERED: SODIUM CHLORIDE 0.9% 1,000 ML IV ONE (01:35)
--- NOTE | 2020-12-18 02:04 | ED ---
Nausea/Vomiting/Diarrhea HPI - General Chief complaint: Nausea/Vomiting/Diarrhea Stated complaint: Fall, Nausea Time Seen by Provider: 12/17/20 23:34 Source: patient Mode of arrival: wheelchair - History of Present Illness Initial comments: This patient is 70-year-old woman who presents with complaint that she believes she is having a recurrence of urinary tract infection. Patient had recently been treated for this and then discharged from hospital. She was having a recurrence of flank pain and dysuria. Patient states that she also became nauseated and did have a couple of episodes of vomiting. She states that she was in feeling unsteady and had a ground-level fall landing on her right forearm. Patient denies head or neck injury. MD complaint: nausea, vomiting, other (Dysuria and flank pain) Onset/Timin -: days(s) Description of Vomiting: food contents Associated Abdominal Pain: Yes Location: flank Radiation: none Severity: moderate Quality: aching Consistency: constant Improves with: none Worsens with: none Associated Symptoms: nausea/vomiting - Related Data Home Medications Medication Instructions Recorded Confirmed Cholecalciferol [Vitamin D3 (25 75 mcg PO DAILY 12/01/14 12/29/20 Mcg = 1000 Iu)] Metoprolol Succinate (ER) [Toprol 50 mg PO HS 07/06/17 12/29/20 XL] Meclizine [Antivert] 25 mg PO QID PRN 11/26/17 12/29/20 Ferrous Sulfate [Iron (65 MG 325 mg PO DAILY 10/08/18 12/29/20 Elemental)] Folic Acid 0.4 mg PO DAILY 10/08/18 12/29/20 L.acidoph,Paracasei, B.lactis 2 cap PO BID 10/08/18 12/29/20 [Probiotic] Melatonin 5 mg PO HS PRN 10/08/18 12/29/20 Multivitamins, Thera Liquid 30 ml PO DAILY 10/08/18 12/29/20 [Theragran Liquid (formulary)] Potassium 99 mg PO DAILY 10/08/18 12/29/20 Thiamine [Vitamin B-1] 100 mg PO DAILY 10/08/18 12/29/20 Vitamin B-Complex Drops 1 ml PO BID 10/08/18 12/29/20 Venlafaxine HCl [Effexor XR] 75 mg PO DAILY 11/08/19 12/29/20 Magnesium Oxide [Mag-Ox] 400 mg PO DAILY 12/06/19 12/29/20 HYDROcodone/APAP 10-325MG [[place] 1 tab PO QID PRN 04/16/20 12/29/20 10-325] C,E,Zinc,Copper 11/Xgpuz9h/Lut 1 cap PO DAILY 06/25/20 12/29/20 [Ocuvite Adult 50 Plus Softgel] Cyanocobalamin (Vitamin B-12) 1,000 mcg PO DAILY 06/25/20 12/29/20 [Vitamin B-12] Ondansetron HCl [Zofran] 4 mg PO Q6H PRN 06/25/20 12/29/20 Spironolactone 50 mg PO DAILY 06/25/20 12/29/20 Vitamin E 400 unit PO DAILY 06/25/20 12/29/20 lisinopriL 40 mg PO DAILY 06/25/20 12/29/20 Brimonidine Tartrate [Alphagan P 1 drop RIGHT EYE BID 11/26/20 12/29/20 0.2% Ophth Soln] Butalb/APAP/Caff 50-325-40Mg 1 tab PO TID PRN 11/26/20 12/29/20 [Fioricet 50-325-40] Cholestyramine (with Sugar) 4 gm PO DAILY 11/26/20 12/29/20 [Questran Packet] Cranberry 05145hr Cap 1 cap PO BID 11/26/20 12/29/20 Estrogens, Conjugated Cream 1 applicator VAGINAL DAILY 11/26/20 12/29/20 [Premarin Cream] Glucagon [Gvoke Pfs 1-Pack Syringe] 1 mg SQ ONCE PRN 11/26/20 12/29/20 Insulin Aspart [NovoLOG Flexpen] 11 units SQ AC-BRKFST 11/26/20 12/29/20 Insulin Aspart [NovoLOG Flexpen] 20 units SQ AC-LUNCH 11/26/20 12/29/20 Insulin Aspart [NovoLOG Flexpen] 26 unit SQ AC-SUPPER 11/26/20 12/29/20 Insulin Aspart [NovoLOG Flexpen] See Protocol SQ AC-TID PRN 11/26/20 12/29/20 Metoclopramide HCl [Reglan] 5 mg PO TID PRN 11/26/20 12/29/20 Pantoprazole Sodium [Protonix] 40 mg PO DAILY 11/26/20 12/29/20 Promethazine HCl [Phenergan Syrup] 6.25 mg PO Q6H PRN 11/26/20 12/29/20 Cephalexin [Keflex] 250 mg PO HS 12/11/20 12/29/20 Insulin Glargine,Hum.rec.anlog 30 unit SQ HS 12/11/20 12/29/20 [Lantus Solostar] Fluconazole [Diflucan] 100 mg PO HS PRN 12/29/20 12/29/20 Previous Rx's Medication Instructions Recorded Aspirin 81 mg PO DAILY #0 07/02/18 Atorvastatin [Lipitor] 40 mg PO HS #30 tab 11/16/18 Gabapentin [Neurontin] 100 mg PO TID #9 cap 03/24/20 Hydrocortisone [Cortef] 5 mg PO HS #0 12/16/20 Hydrocortisone [Cortef] 10 mg PO DAILY@1200 #0 12/16/20 Hydrocortisone [Cortef] 15 mg PO DAILY #0 12/16/20 Nystatin 1 applic TOPICAL DAILY PRN #15 gram 12/16/20 Nystatin 100,000 Unit/gm Powd 1 applic TOPICAL TID #15 g 12/16/20 [Mycostatin Powder] Dicyclomine [Bentyl] 10 mg PO QID PRN #20 cap 12/21/20 Allergies Allergy/AdvReac Type Severity Reaction Status Date / Time butorphanol tartrate Allergy BLISTERS Verified 12/29/20 15:40 [From Stadol] IN MOUTH ceftriaxone [From Rocephin] Allergy Unknown Verified 12/29/20 15:40 clarithromycin [From Biaxin] Allergy Rash/Hives Verified 12/29/20 15:40 clindamycin Allergy Unknown Verified 12/29/20 15:40 codeine Allergy Rash/Hives Verified 12/29/20 15:40 ergotamine tartrate Allergy Unknown Verified 12/29/20 15:40 [From Cafergot] erythromycin base Allergy RASH, GI Verified 12/29/20 15:40 [From E-Mycin] SYMPTOMS ketorolac tromethamine Allergy Rash/Hives Verified 12/29/20 15:40 [From Toradol] liraglutide [From Victoza] Allergy Rash/Hives Verified 12/29/20 15:40 morphine Allergy Rash/Hives Verified 12/29/20 15:40 Penicillins Allergy Rash/Hives Verified 12/29/20 15:40 pentazocine lactate Allergy SEVERE Verified 12/29/20 15:40 [From Talwin] BLISTERS IN MOUTH pregabalin [From Lyrica] Allergy Rash/Hives Verified 12/29/20 15:40 propoxyphene HCl Allergy Rash/Hives Verified 12/29/20 15:40 [From Darvon] Sulfa (Sulfonamide Allergy Rash/Hives Verified 12/29/20 15:40 Antibiotics) tramadol Allergy Unknown Verified 12/29/20 15:40 monosodium glutamate [MSG] AdvReac Nausea & Verified 12/29/20 15:40 Vomiting nalbuphine HCl [From Nubain] AdvReac Nausea & Verified 12/29/20 15:40 Vomiting Review of Systems ROS Statement: Those systems with pertinent positive or pertinent negative responses have been documented in the HPI. ROS Other: All systems not noted in ROS Statement are negative. Constitutional: Denies: fever, chills Respiratory: Denies: cough, dyspnea Cardiovascular: Denies: chest pain, palpitations, edema Gastrointestinal: Reports: as per HPI, abdominal pain, nausea, vomiting. Denies: diarrhea, melena, hematochezia Genitourinary: Reports: dysuria. Denies: frequency, hematuria Musculoskeletal: Denies: back pain Skin: Denies: rash Neurological: Denies: headache, weakness, numbness Past Medical History Past Medical History: Diabetes Mellitus, Deep Vein Thrombosis (DVT), Fibromyalgia, Hyperlipidemia, Hypertension, Osteoarthritis (OA), Pneumonia, Renal Disease, Sleep Apnea/CPAP/BIPAP, Vascular Disorder Additional Past Medical History / Comment(s): Pt recently admitted to [facility] On 02/23/20 with complicated UTI/migraine/nausea and vomiting. 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, DVT R calf in 1976, cardiac murmur, occipital neuraligia, balance issues-has narrowing of vessels "in the back of my head", vertigo, varicosities, states rt shoulder torn rotator cuff History of Any Multi-Drug Resistant Organisms: ESBL, MRSA, VRE Date of last positivie culture/infection: 11/25/20 ESBL;12/06/19 VRE; 03/10/11 MRSA MDRO Source:: Urine ESBL; Urine-VRE: MRSA 4th Right TOE Past Surgical History: Appendectomy, Back Surgery, Bladder Surgery, Breast Surgery, Cholecystectomy, Heart Catheterization, Hysterectomy, Orthopedic Surgery, Tonsillectomy Additional Past Surgical History / Comment(s): Lumbar fusions, bladder suspension, occipital nerve blocks, 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, R wrist/elbow nerve repair, bone removed R shoulder, 4th toe R foot partial amput ation, bilateral feet/bunionectomies, R knee arthroscopies, R orbit decompression with ethmoidectomy and eyelid lift, EGD, colonoscopies, cystocopies, lithotripsy/stents, bilateral breast reduction, bilateral cataract removals, parathyroid surgery - April 2019, pain clinic procedures Past Anesthesia/Blood Transfusion Reactions: No Reported Reaction Additional Past Anesthesia/Blood Transfusion Reaction / Comment(s): never recieved blood Past Psychological History: Depression Smoking Status: Never smoker Past Alcohol Use History: None Reported Past Drug Use History: None Reported - Past Family History Father Family Medical History: Coronary Artery Disease (CAD), CVA/TIA, Diabetes Shanice itus, Myocardial Infarction (ME), Pneumonia Additional Family Medical History / Comment(s): Father at the age of 78yrs from ME and pneumonia. Mother Family Medical History: Cancer Additional Family Medical History / Comment(s): Mother had uterine cancer. She recently at the age of 96yrs old from [employer]. General Exam General appearance: alert, in no apparent distress Head exam: Present: atraumatic, normocephalic Eye exam: Present: normal appearance. Absent: scleral icterus, conjunctival injection ENT exam: Present: mucous membranes dry Neck exam: Present: normal inspection, full ROM. Absent: tenderness Respiratory exam: Present: normal lung sounds bilaterally. Absent: respiratory distress, wheezes, rales, rhonchi, stridor Cardiovascular Exam: Present: normal rhythm, tachycardia (Rate is approximately 104 by exam), normal heart sounds. Absent: systolic murmur, diastolic murmur, rubs, gallop GI/Abdominal exam: Present: soft. Absent: distended, tenderness, guarding, rebound, rigid, mass Extremities exam: Present: normal inspection, normal capillary refill. Absent: pedal edema, calf tenderness Back exam: Present: normal inspection. Absent: paraspinal tenderness, vertebral tenderness Neurological exam: Present: alert Skin exam: Present: warm, dry, intact, normal color. Absent: rash Course Vital Signs 12/17/20 12/18/20 12/18/20 23:25 00:30 01:30 Temperature 98.2 F Pulse Rate 115 H 91 85 Respiratory 18 16 16 Rate Blood Pressure 90/63 122/71 133/69 O2 Sat by Pulse 97 97 97 Oximetry 12/18/20 12/18/20 02:00 07:18 Temperature 98.5 F Pulse Rate 82 82 Respiratory 16 20 Rate Blood Pressure 138/84 126/75 O2 Sat by Pulse 98 97 Oximetry Medical Decision Making - Medical Decision Making Patient is 70-year-old woman with concerns of recurrence of urinary tract infection. Her urine here does look clear. Labs do show suspected dehydration as BUN to creatinine ratio is elevated. Patient is given IV fluids. Also given analgesic. Patient did continue to have some flank pain and requested that I speak with her primary physician who will with patient on observation. - Lab Data Result diagrams: 12/20/20 05:59 12/20/20 05:59 Lab Results 12/18/20 12/18/20 12/18/20 Range/Units 00:20 00:20 00:30 WBC 9.9 (3.8-10.6) k/uL RBC 4.79 (3.80-5.40) m/uL Hgb 14.6 (11.4-16.0) gm/dL Hct 43.4 (34.0-46.0) % MCV 90.6 (80.0-100.0) fL MCH 30.5 (25.0-35.0) pg MCHC 33.7 (31.0-37.0) g/dL RDW 13.7 (11.5-15.5) % Plt Count 213 (150-450) k/uL MPV 7.8 Immature Gran % (Auto) % Absolute Nucleated RBC (0.00-0.00) X 10*3/uL Neutrophils % 71 % Lymphocytes % 19 % Monocytes % 6 % Eosinophils % 2 % Basophils % 1 % Immature Gran # (0.00-0.04) X 10*3/uL Neutrophils # 7.1 (1.3-7.7) k/uL Lymphocytes # 1.9 (1.0-4.8) k/uL Monocytes # 0.6 (0-1.0) k/uL Eosinophils # 0.2 (0-0.7) k/uL Basophils # 0.1 (0-0.2) k/uL NRBC/100 WBC Diff (0.0-0.0) /100 WBCS Sodium 139 (137-145) mmol/L Potassium 3.7 (3.5-5.1) mmol/L Chloride 105 (98-107) mmol/L Carbon Dioxide 26 (22-30) mmol/L Anion Gap 8 mmol/L BUN 28 H (7-17) mg/dL Creatinine 0.70 (0.52-1.04) mg/dL Est GFR (CKD-EPI)AfAm >90 (>60 ml/min/1.73 sqM) Est GFR (CKD-EPI)NonAf 87 (>60 ml/min/1.73 sqM) BUN/Creatinine Ratio (12.00-20.00) Ratio Glucose 173 H (74-99) mg/dL POC Glucose (mg/dL) (75-99) mg/dL POC Glu Outreach Counselor ID Calcium 9.0 (8.4-10.2) mg/dL Urine Color Yellow Urine Appearance Clear (Clear) Urine pH 6.0 (5.0-8.0) Ur Specific [place] 1.050 H (1.001-1.035) Urine Protein 1+ H (Negative) Urine Glucose (UA) Negative (Negative) Urine Ketones 2+ H (Negative) Urine Blood Negative (Negative) Urine Nitrite Negative (Negative) Urine Bilirubin Negative (Negative) Urine Urobilinogen 2.0 (<2.0) mg/dL Ur Leukocyte Esterase Negative (Negative) Urine RBC <1 (0-5) /hpf Urine WBC 1 (0-5) /hpf Ur Squamous Epith Cells <1 (0-4) /hpf Amorphous Sediment Rare H (None) /hpf Urine Mucus Moderate H (None) /hpf C. difficile (EIA) Intrp (Negative) 12/18/20 12/18/20 12/18/20 Range/Units 07:56 11:50 16:29 WBC (3.8-10.6) k/uL RBC (3.80-5.40) m/uL Hgb (11.4-16.0) gm/dL Hct (34.0-46.0) % MCV (80.0-100.0) fL MCH (25.0-35.0) pg MCHC (31.0-37.0) g/dL RDW (11.5-15.5) % Plt Count (150-450) k/uL MPV Immature Gran % (Auto) % Absolute Nucleated RBC (0.00-0.00) X 10*3/uL Neutrophils % % Lymphocytes % % Monocytes % % Eosinophils % % Basophils % % Immature Gran # (0.00-0.04) X 10*3/uL Neutrophils # (1.3-7.7) k/uL Lymphocytes # (1.0-4.8) k/uL Monocytes # (0-1.0) k/uL Eosinophils # (0-0.7) k/uL Basophils # (0-0.2) k/uL NRBC/100 WBC Diff (0.0-0.0) /100 WBCS Sodium (137-145) mmol/L Potassium (3.5-5.1) mmol/L Chloride (98-107) mmol/L Carbon Dioxide (22-30) mmol/L Anion Gap mmol/L BUN (7-17) mg/dL Creatinine (0.52-1.04) mg/dL Est GFR (CKD-EPI)AfAm (>60 ml/min/1.73 sqM) Est GFR (CKD-EPI)NonAf (>60 ml/min/1.73 sqM) BUN/Creatinine Ratio (12.00-20.00) Ratio Glucose (74-99) mg/dL POC Glucose (mg/dL) 121 H 113 H 166 H (75-99) mg/dL POC Glu Outreach Counselor ID Cabello, Yue Cabello, Yue Cabello, Yue Calcium (8.4-10.2) mg/dL Urine Color Urine Appearance (Clear) Urine pH (5.0-8.0) Ur Specific [place] (1.001-1.035) Urine Protein (Negative) Urine Glucose (UA) (Negative) Urine Ketones (Negative) Urine Blood (Negative) Urine Nitrite (Negative) Urine Bilirubin (Negative) Urine Urobilinogen (<2.0) mg/dL Ur Leukocyte Esterase (Negative) Urine RBC (0-5) /hpf Urine WBC (0-5) /hpf Ur Squamous Epith Cells (0-4) /hpf Amorphous Sediment (None) /hpf Urine Mucus (None) /hpf C. difficile (EIA) Intrp (Negative) 12/18/20 12/18/20 12/19/20 Range/Units 16:42 20:29 07:11 WBC (3.8-10.6) k/uL RBC (3.80-5.40) m/uL Hgb (11.4-16.0) gm/dL Hct (34.0-46.0) % MCV (80.0-100.0) fL MCH (25.0-35.0) pg MCHC (31.0-37.0) g/dL RDW (11.5-15.5) % Plt Count (150-450) k/uL MPV Immature Gran % (Auto) % Absolute Nucleated RBC (0.00-0.00) X 10*3/uL Neutrophils % % Lymphocytes % % Monocytes % % Eosinophils % % Basophils % % Immature Gran # (0.00-0.04) X 10*3/uL Neutrophils # (1.3-7.7) k/uL Lymphocytes # (1.0-4.8) k/uL Monocytes # (0-1.0) k/uL Eosinophils # (0-0.7) k/uL Basophils # (0-0.2) k/uL NRBC/100 WBC Diff (0.0-0.0) /100 WBCS Sodium (137-145) mmol/L Potassium (3.5-5.1) mmol/L Chloride (98-107) mmol/L Carbon Dioxide (22-30) mmol/L Anion Gap mmol/L BUN (7-17) mg/dL Creatinine (0.52-1.04) mg/dL Est GFR (CKD-EPI)AfAm (>60 ml/min/1.73 sqM) Est GFR (CKD-EPI)NonAf (>60 ml/min/1.73 sqM) BUN/Creatinine Ratio (12.00-20.00) Ratio Glucose (74-99) mg/dL POC Glucose (mg/dL) 182 H 244 H (75-99) mg/dL POC Glu Outreach Counselor ID Radha Garcias Leah Calcium (8.4-10.2) mg/dL Urine Color Urine Appearance (Clear) Urine pH (5.0-8.0) Ur Specific [place] (1.001-1.035) Urine Protein (Negative) Urine Glucose (UA) (Negative) Urine Ketones (Negative) Urine Blood (Negative) Urine Nitrite (Negative) Urine Bilirubin (Negative) Urine Urobilinogen (<2.0) mg/dL Ur Leukocyte Esterase (Negative) Urine RBC (0-5) /hpf Urine WBC (0-5) /hpf Ur Squamous Epith Cells (0-4) /hpf Amorphous Sediment (None) /hpf Urine Mucus (None) /hpf C. difficile (EIA) Intrp Negative (Negative) 12/19/20 12/19/20 12/19/20 Range/Units 11:26 16:34 20:38 WBC (3.8-10.6) k/uL RBC (3.80-5.40) m/uL Hgb (11.4-16.0) gm/dL Hct (34.0-46.0) % MCV (80.0-100.0) fL MCH (25.0-35.0) pg MCHC (31.0-37.0) g/dL RDW (11.5-15.5) % Plt Count (150-450) k/uL MPV Immature Gran % (Auto) % Absolute Nucleated RBC (0.00-0.00) X 10*3/uL Neutrophils % % Lymphocytes % % Monocytes % % Eosinophils % % Basophils % % Immature Gran # (0.00-0.04) X 10*3/uL Neutrophils # (1.3-7.7) k/uL Lymphocytes # (1.0-4.8) k/uL Monocytes # (0-1.0) k/uL Eosinophils # (0-0.7) k/uL Basophils # (0-0.2) k/uL NRBC/100 WBC Diff (0.0-0.0) /100 WBCS Sodium (137-145) mmol/L Potassium (3.5-5.1) mmol/L Chloride (98-107) mmol/L Carbon Dioxide (22-30) mmol/L Anion Gap mmol/L BUN (7-17) mg/dL Creatinine (0.52-1.04) mg/dL Est GFR (CKD-EPI)AfAm (>60 ml/min/1.73 sqM) Est GFR (CKD-EPI)NonAf (>60 ml/min/1.73 sqM) BUN/Creatinine Ratio (12.00-20.00) Ratio Glucose (74-99) mg/dL POC Glucose (mg/dL) 265 H 284 H 209 H (75-99) mg/dL POC Glu Outreach Counselor ID Aaron, Jaqueline Walker, Jaqueline Keyslindasvetlana Carie Calcium (8.4-10.2) mg/dL Urine Color Urine Appearance (Clear) Urine pH (5.0-8.0) Ur Specific [place] (1.001-1.035) Urine Protein (Negative) Urine Glucose (UA) (Negative) Urine Ketones (Negative) Urine Blood (Negative) Urine Nitrite (Negative) Urine Bilirubin (Negative) Urine Urobilinogen (<2.0) mg/dL Ur Leukocyte Esterase (Negative) Urine RBC (0-5) /hpf Urine WBC (0-5) /hpf Ur Squamous Epith Cells (0-4) /hpf Amorphous Sediment (None) /hpf Urine Mucus (None) /hpf C. difficile (EIA) Intrp (Negative) 12/20/20 12/20/20 12/20/20 Range/Units 05:59 05:59 07:00 WBC 6.95 (3.8-10.6) k/uL RBC 3.71 L (3.80-5.40) m/uL Hgb 11.1 L (11.4-16.0) gm/dL Hct 35.1 L (34.0-46.0) % MCV 94.6 (80.0-100.0) fL MCH 29.9 (25.0-35.0) pg MCHC 31.6 L (31.0-37.0) g/dL RDW 13.5 (11.5-15.5) % Plt Count 173 (150-450) k/uL MPV 10.7 Immature Gran % (Auto) 0.6 % Absolute Nucleated RBC 0 (0.00-0.00) X 10*3/uL Neutrophils % 66.3 % Lymphocytes % 23.9 % Monocytes % 6.8 % Eosinophils % 2.4 % Basophils % 0 % Immature Gran # 0.04 (0.00-0.04) X 10*3/uL Neutrophils # 4.61 (1.3-7.7) k/uL Lymphocytes # 1.66 (1.0-4.8) k/uL Monocytes # 0.47 (0-1.0) k/uL Eosinophils # 0.17 (0-0.7) k/uL Basophils # 0 (0-0.2) k/uL NRBC/100 WBC Diff 0 (0.0-0.0) /100 WBCS Sodium 143 (137-145) mmol/L Potassium 3.7 (3.5-5.1) mmol/L Chloride 106 (98-107) mmol/L Carbon Dioxide 28.9 (22-30) mmol/L Anion Gap 8.10 mmol/L BUN 15.0 (7-17) mg/dL Creatinine 0.5 L (0.52-1.04) mg/dL Est GFR (CKD-EPI)AfAm 112.9 (>60 ml/min/1.73 sqM) Est GFR (CKD-EPI)NonAf 97.4 (>60 ml/min/1.73 sqM) BUN/Creatinine Ratio 30.00 H (12.00-20.00) Ratio Glucose 231 H (74-99) mg/dL POC Glucose (mg/dL) 228 H (75-99) mg/dL POC Glu Outreach Counselor ID Aaron, Jaqueline Calcium 7.9 L (8.4-10.2) mg/dL Urine Color Urine Appearance (Clear) Urine pH (5.0-8.0) Ur Specific [place] (1.001-1.035) Urine Protein (Negative) Urine Glucose (UA) (Negative) Urine Ketones (Negative) Urine Blood (Negative) Urine Nitrite (Negative) Urine Bilirubin (Negative) Urine Urobilinogen (<2.0) mg/dL Ur Leukocyte Esterase (Negative) Urine RBC (0-5) /hpf Urine WBC (0-5) /hpf Ur Squamous Epith Cells (0-4) /hpf Amorphous Sediment (None) /hpf Urine Mucus (None) /hpf C. difficile (EIA) Intrp (Negative) 12/20/20 12/20/20 12/20/20 Range/Units 11:23 16:25 20:15 WBC (3.8-10.6) k/uL RBC (3.80-5.40) m/uL Hgb (11.4-16.0) gm/dL Hct (34.0-46.0) % MCV (80.0-100.0) fL MCH (25.0-35.0) pg MCHC (31.0-37.0) g/dL RDW (11.5-15.5) % Plt Count (150-450) k/uL MPV Immature Gran % (Auto) % Absolute Nucleated RBC (0.00-0.00) X 10*3/uL Neutrophils % % Lymphocytes % % Monocytes % % Eosinophils % % Basophils % % Immature Gran # (0.00-0.04) X 10*3/uL Neutrophils # (1.3-7.7) k/uL Lymphocytes # (1.0-4.8) k/uL Monocytes # (0-1.0) k/uL Eosinophils # (0-0.7) k/uL Basophils # (0-0.2) k/uL NRBC/100 WBC Diff (0.0-0.0) /100 WBCS Sodium (137-145) mmol/L Potassium (3.5-5.1) mmol/L Chloride (98-107) mmol/L Carbon Dioxide (22-30) mmol/L Anion Gap mmol/L BUN (7-17) mg/dL Creatinine (0.52-1.04) mg/dL Est GFR (CKD-EPI)AfAm (>60 ml/min/1.73 sqM) Est GFR (CKD-EPI)NonAf (>60 ml/min/1.73 sqM) BUN/Creatinine Ratio (12.00-20.00) Ratio Glucose (74-99) mg/dL POC Glucose (mg/dL) 280 H 227 H 335 H (75-99) mg/dL POC Glu Outreach Counselor ID Aaron, Jaqueline Walker, Jaqueline Galloway, Lisa Calcium (8.4-10.2) mg/dL Urine Color Urine Appearance (Clear) Urine pH (5.0-8.0) Ur Specific [place] (1.001-1.035) Urine Protein (Negative) Urine Glucose (UA) (Negative) Urine Ketones (Negative) Urine Blood (Negative) Urine Nitrite (Negative) Urine Bilirubin (Negative) Urine Urobilinogen (<2.0) mg/dL Ur Leukocyte Esterase (Negative) Urine RBC (0-5) /hpf Urine WBC (0-5) /hpf Ur Squamous Epith Cells (0-4) /hpf Amorphous Sediment (None) /hpf Urine Mucus (None) /hpf C. difficile (EIA) Intrp (Negative) 12/21/20 Range/Units 07:37 WBC (3.8-10.6) k/uL RBC (3.80-5.40) m/uL Hgb (11.4-16.0) gm/dL Hct (34.0-46.0) % MCV (80.0-100.0) fL MCH (25.0-35.0) pg MCHC (31.0-37.0) g/dL RDW (11.5-15.5) % Plt Count (150-450) k/uL MPV Immature Gran % (Auto) % Absolute Nucleated RBC (0.00-0.00) X 10*3/uL Neutrophils % % Lymphocytes % % Monocytes % % Eosinophils % % Basophils % % Immature Gran # (0.00-0.04) X 10*3/uL Neutrophils # (1.3-7.7) k/uL Lymphocytes # (1.0-4.8) k/uL Monocytes # (0-1.0) k/uL Eosinophils # (0-0.7) k/uL Basophils # (0-0.2) k/uL NRBC/100 WBC Diff (0.0-0.0) /100 WBCS Sodium (137-145) mmol/L Potassium (3.5-5.1) mmol/L Chloride (98-107) mmol/L Carbon Dioxide (22-30) mmol/L Anion Gap mmol/L BUN (7-17) mg/dL Creatinine (0.52-1.04) mg/dL Est GFR (CKD-EPI)AfAm (>60 ml/min/1.73 sqM) Est GFR (CKD-EPI)NonAf (>60 ml/min/1.73 sqM) BUN/Creatinine Ratio (12.00-20.00) Ratio Glucose (74-99) mg/dL POC Glucose (mg/dL) 230 H (75-99) mg/dL POC Glu Outreach Counselor ID Yue Cabello Calcium (8.4-10.2) mg/dL Urine Color Urine Appearance (Clear) Urine pH (5.0-8.0) Ur Specific [place] (1.001-1.035) Urine Protein (Negative) Urine Glucose (UA) (Negative) Urine Ketones (Negative) Urine Blood (Negative) Urine Nitrite (Negative) Urine Bilirubin (Negative) Urine Urobilinogen (<2.0) mg/dL Ur Leukocyte Esterase (Negative) Urine RBC (0-5) /hpf Urine WBC (0-5) /hpf Ur Squamous Epith Cells (0-4) /hpf Amorphous Sediment (None) /hpf Urine Mucus (None) /hpf C. difficile (EIA) Intrp (Negative) - EKG Data -: EKG Interpreted by Me EKG shows normal: sinus rhythm (DAC), axis (Normal), intervals (Normal), QRS complexes (Normal) Rate: tachycardia (Rate 105 bpm) Interpretation: nonspecific ST-T wave changes Disposition Clinical Impression: Vomiting, Dehydration, Flank pain Disposition: ADMITTED IP TO THIS [facility] Condition: Good Is patient prescribed a controlled substance at d/c from ED?: No
[2020-12-18] MEDS ORDERED: HYDROmorphone 0.5 MG/0.5 ML SYRINGE IVP STA (02:34)
[2020-12-18] MEDS ORDERED: NALOXONE 0.4 MG/ML 1 ML VIAL IV PRN (03:47)
[2020-12-18] MEDS ORDERED: ONDANSETRON 4 MG/2 ML VIAL IVP PRN (03:47)
[2020-12-18] MEDS ORDERED: ACETAMINOPHEN TAB 325 MG TAB PO PRN (03:47)
[2020-12-18] MEDS ORDERED: MELATONIN 5 MG TABLET PO PRN (03:50)
[2020-12-18] MEDS ORDERED: METOCLOPRAMIDE 5 MG TAB PO PRN (03:50)
[2020-12-18] MEDS ORDERED: PROMETHAZINE HCL 6.25 MG/5 ML CUP PO PRN (03:50)
[2020-12-18] MEDS: SODIUM CHLORIDE 0.9% 1,000 ML IV SCH ×3 (03:53→20:31)
[2020-12-18] MEDS ORDERED: PANTOPRAZOLE 40 MG TABLET PO SCH (07:30)
[2020-12-18 07:59] LABS: Glucose,Whole Blood 121 mg/dL (75-99)
[2020-12-18] MEDS ORDERED: METOCLOPRAMIDE 5 MG/ML 2 ML VIAL IVP PRN (08:33)
[2020-12-18] MEDS ORDERED: NON FORMULARY DRUG (Potassium [Potassium] 99 MG Tablet) PO SCH (09:00)
[2020-12-18] MEDS: HYDROmorphone 0.5 MG/0.5 ML SYRINGE IVP PRN ×3 (09:56→19:25)
[2020-12-18] MEDS: GABAPENTIN 100 MG CAP PO SCH ×3 (10:00→20:31)
[2020-12-18] MEDS: BRIMONIDINE TARTRATE 0.2% DROPS 5 ML BTL RIGHT EYE SCH ×2 (10:48→20:31)
[2020-12-18] MEDS: FERROUS SULFATE 325 MG TAB PO SCH (10:49)
[2020-12-18] MEDS: MAGNESIUM OXIDE 400 MG TAB PO SCH (10:50)
[2020-12-18] MEDS: THIAMINE 100 MG TAB PO SCH (10:50)
[2020-12-18] MEDS: VENLAFAXINE HCL ER 75 MG CAP PO SCH (10:50)
[2020-12-18] MEDS: lisinopriL 20 MG TAB PO SCH (10:50)
[2020-12-18] MEDS: SPIRONOLACTONE 25 MG TAB PO SCH (10:50)
[2020-12-18 11:52] LABS: Glucose,Whole Blood 113 mg/dL (75-99)
[2020-12-18] MEDS: HYDROcodone/APAP 10-325MG 1 EACH TAB PO PRN ×3 (12:10→22:56)
[2020-12-18] MEDS: HYDROCORTISONE SUCCINATE 100 MG/2 ML VIAL IV SCH ×2 (13:19→19:24)
[2020-12-18 16:34] LABS: Glucose,Whole Blood 166 mg/dL (75-99)
[2020-12-18] MEDS: INSULIN ASPART (NovoLOG) 100 UNIT/ML VIAL SQ SCH ×2 (17:38→20:39)
[2020-12-18] MEDS ORDERED: DICYCLOMINE 10 MG CAP PO PRN (19:40)
--- NOTE | 2020-12-18 19:58 | P.CONS ---
History of Present Illness - Reason for Consult Consult date: 12/18/20 Abdominal pain, nausea and vomiting Requesting physician: Andrew Gonsales - Chief Complaint Nausea and vomiting, dysuria - History of Present Illness 70-year-old female with multiple medical comorbidities including recurrent urinary tract infections, diabetes mellitus, migraine disorder, hypertension, adrenal insufficiency who presented to the hospital due to concerns over recurrence of a urinary tract infection. Patient was recently treated for urinary tract infection and presented back with complaints of flank pain and dysuria. She also reports nausea with episodes of vomiting. She also had a mechanical fall prior to presentation. She denies any history of reflux or peptic ulcer disease. She denies any bryon abdominal pain but does report some flank pain and tenderness to palpation. She does report an episode of diarrhea prior to presentation which is improved. She believes her last EGD and colonoscopy were over 10 years. WBC 9.9, hemoglobin 14.6 and platelet thousand and 13,000 on presentation. Review of Systems REVIEW OF SYSTEMS: CONSTITUTIONAL: Denies any fevers, chills, weight change or fatigue. CARDIOVASCULAR: Denies any chest pain, palpitations high or low blood pressures RESPIRATORY: Denies any shortness of breath, hemoptysis or cough. GENITOURINARY: No hematuria but she does report dysuria and has a history of recurrent UTIs. MUSCULOSKELETAL: No weakness reported. SKIN: Denies any new rashes or lesions, jaundice or pallor. PSYCHIATRIC: Denies any depression or anxiety. NEUROLOGY: Denies headache, denies any new focal deficits. EARS/NOSE/THROAT: No recent hearing change, congestion, nasal discharge or sore throat. EYES: No pain in eyes, discharge or change in vision. GASTROINTESTINAL: As per HPI. Past Medical History Past Medical History: Diabetes Mellitus, Deep Vein Thrombosis (DVT), Fibromyalgia, Hyperlipidemia, Hypertension, Osteoarthritis (OA), Pneumonia, Renal Disease, Sleep Apnea/CPAP/BIPAP, Vascular Disorder Additional Past Medical History / Comment(s): Pt recently admitted to [facility] On 02/23/20 with complicated UTI/migraine/nausea and vomiting. 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, DVT R calf in 1976, cardiac murmur, occipital neuraligia, balance issues-has narrowing of vessels "in the back of my head", vertigo, varicosities, states rt shoulder torn rotator cuff History of Any Multi-Drug Resistant Organisms: ESBL, MRSA, VRE Year Discovered:: 11/25/20 ESBL;12/06/19 VRE; 03/10/11 MRSA MDRO Source:: Urine ESBL; Urine-VRE: MRSA 4th Right TOE Past Surgical History: Appendectomy, Back Surgery, Bladder Surgery, Breast Surgery, Cholecystectomy, Heart Catheterization, Hysterectomy, Orthopedic Surgery, Tonsillectomy Additional Past Surgical History / Comment(s): Lumbar fusions, bladder suspension, occipital nerve blocks, 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, R wrist/elbow nerve repair, bone removed R shoulder, 4th toe R foot partial amputation, bilateral feet/bunionectomies, R knee arthroscopies, R orbit decompression with ethmoidectomy and eyelid lift, EGD, colonoscopies, cystocopies, lithotripsy/stents, bilateral breast reduction, bilateral cataract removals, parathyroid surgery - April 2019, pain clinic procedures Past Anesthesia/Blood Transfusion Reactions: No Reported Reaction Additional Past Anesthesia/Blood Transfusion Reaction / Comm: never recieved blo od Past Psychological History: Depression Smoking Status: Never smoker Past Alcohol Use History: None Reported Past Drug Use History: None Reported - Past Family History Father Family Medical History: Coronary Artery Disease (CAD), CVA/TIA, Diabetes Mellitus, Myocardial Infarction ([place]), Pneumonia Additional Family Medical History / Comment(s): Father at the age of 78yrs from [place] and pneumonia. Mother Family Medical History: Cancer, Congestive Heart Failure (CHF) Additional Family Medical History / Comment(s): Mother had uterine cancer. She recently at the age of 96yrs old from [place]. Medications and Allergies Home Medications Medication Instructions Recorded Confirmed Type Cholecalciferol [Vitamin D3 (25 75 mcg PO DAILY 12/01/14 12/18/20 History Mcg = 1000 Iu)] Metoprolol Succinate (ER) [Toprol 50 mg PO HS 07/06/17 12/18/20 History XL] Meclizine [Antivert] 25 mg PO QID PRN 11/26/17 12/18/20 History Aspirin 81 mg PO DAILY #0 07/02/18 12/18/20 Rx Ferrous Sulfate [Iron (65 MG 325 mg PO DAILY 10/08/18 12/18/20 History Elemental)] Folic Acid 0.4 mg PO DAILY 10/08/18 12/18/20 History L.acidoph,Paracasei, B.lactis 2 cap PO BID 10/08/18 12/18/20 History [Probiotic] Melatonin 5 mg PO HS PRN 10/08/18 12/18/20 History Multivitamins, Thera Liquid 30 ml PO DAILY 10/08/18 12/18/20 History [Theragran Liquid (formulary)] Potassium 99 mg PO DAILY 10/08/18 12/18/20 History Thiamine [Vitamin B-1] 100 mg PO DAILY 10/08/18 12/18/20 History Vitamin B-Complex Drops 1 ml PO BID 10/08/18 12/18/20 History Atorvastatin [Lipitor] 40 mg PO HS #30 tab 11/16/18 12/18/20 Rx Venlafaxine HCl [Effexor XR] 75 mg PO DAILY 11/08/19 12/18/20 History Magnesium Oxide [Mag-Ox] 400 mg PO DAILY 12/06/19 12/18/20 History Gabapentin [Neurontin] 100 mg PO TID #9 cap 03/24/20 12/18/20 Rx HYDROcodone/APAP 10-325MG [[place] 1 tab PO QID PRN 04/16/20 12/18/20 History 10-325] C,E,Zinc,Copper 11/Psyjl0z/Lut 1 cap PO DAILY 06/25/20 12/18/20 History [Ocuvite Adult 50 Plus Softgel] Cyanocobalamin (Vitamin B-12) 1,000 mcg PO DAILY 06/25/20 12/18/20 History [Vitamin B-12] Ondansetron HCl [Zofran] 4 mg PO Q6H PRN 06/25/20 12/18/20 History Spironolactone 50 mg PO DAILY 06/25/20 12/18/20 History Vitamin E 400 unit PO DAILY 06/25/20 12/18/20 History lisinopriL 40 mg PO DAILY 06/25/20 12/18/20 History Brimonidine Tartrate [Alphagan P 1 drop RIGHT EYE BID 11/26/20 12/18/20 History 0.2% Ophth Soln] Butalb/APAP/Caff 50-325-40Mg 1 tab PO TID PRN 11/26/20 12/18/20 History [Fioricet 50-325-40] Cholestyramine (with Sugar) 4 gm PO DAILY 11/26/20 12/18/20 History [Questran Packet] Cranberry 51365on Cap 1 cap PO BID 11/26/20 12/18/20 History Estrogens, Conjugated Cream 1 applicator VAGINAL DAILY 11/26/20 12/18/20 History [Premarin Cream] Glucagon [Gvoke Pfs 1-Pack Syringe] 1 mg SQ ONCE PRN 11/26/20 12/18/20 History Insulin Aspart [NovoLOG Flexpen] 11 units SQ AC-BRKFST 11/26/20 12/18/20 History Insulin Aspart [NovoLOG Flexpen] 20 units SQ AC-LUNCH 11/26/20 12/18/20 History Insulin Aspart [NovoLOG Flexpen] 26 unit SQ AC-SUPPER 11/26/20 12/18/20 History Insulin Aspart [NovoLOG Flexpen] See Protocol SQ AC-TID 11/26/20 12/18/20 History Metoclopramide HCl [Reglan] 5 mg PO TID PRN 11/26/20 12/18/20 History Pantoprazole Sodium [Protonix] 40 mg PO DAILY 11/26/20 12/18/20 History Promethazine HCl [Phenergan Syrup] 6.25 mg PO Q6H PRN 11/26/20 12/18/20 History Cephalexin [Keflex] 250 mg PO HS 12/11/20 12/18/20 History Insulin Glargine,Hum.rec.anlog 30 unit SQ HS 12/11/20 12/18/20 History [Lantus Solostar] Fluconazole [Diflucan] 100 mg PO HS #5 tab 12/16/20 12/18/20 Rx Hydrocortisone [Cortef] 5 mg PO HS #0 12/16/20 12/18/20 Rx Hydrocortisone [Cortef] 10 mg PO DAILY@1200 #0 12/16/20 12/18/20 Rx Hydrocortisone [Cortef] 15 mg PO DAILY #0 12/16/20 12/18/20 Rx Nystatin 1 applic TOPICAL DAILY PRN #15 gram 12/16/20 12/18/20 Rx Nystatin 100,000 Unit/gm Powd 1 applic TOPICAL TID #15 g 12/16/20 12/18/20 Rx [Mycostatin Powder] Allergies Allergy/AdvReac Type Severity Reaction Status Date / Time butorphanol tartrate Allergy BLISTERS Verified 12/17/20 23:29 [From Stadol] IN MOUTH ceftriaxone [From Rocephin] Allergy Unknown Verified 12/17/20 23:29 clarithromycin [From Biaxin] Allergy Rash/Hives Verified 12/17/20 23:29 clindamycin Allergy Unknown Verified 12/17/20 23:29 codeine Allergy Rash/Hives Verified 12/17/20 23:29 ergotamine tartrate Allergy Unknown Verified 12/17/20 23:29 [From Cafergot] erythromycin base Allergy RASH, GI Verified 12/17/20 23:29 [From E-Mycin] SYMPTOMS ketorolac tromethamine Allergy Rash/Hives Verified 12/17/20 23:29 [From Toradol] liraglutide [From Victoza] Allergy Rash/Hives Verified 12/17/20 23:29 morphine Allergy Rash/Hives Verified 12/17/20 23:29 Penicillins Allergy Rash/Hives Verified 12/17/20 23:29 pentazocine lactate Allergy SEVERE Verified 12/17/20 23:29 [From Talwin] BLISTERS IN MOUTH pregabalin [From Lyrica] Allergy Rash/Hives Verified 12/17/20 23:29 propoxyphene HCl Allergy Rash/Hives Verified 12/17/20 23:29 [From Darvon] Sulfa (Sulfonamide Allergy Rash/Hives Verified 12/17/20 23:29 Antibiotics) tramadol Allergy Unknown Verified 12/17/20 23:29 monosodium glutamate [MSG] AdvReac Nausea & Verified 12/17/20 23:29 Vomiting nalbuphine HCl [From Nubain] AdvReac Nausea & Verified 12/17/20 23:29 Vomiting Physical Exam Vitals: Vital Signs Temp Pulse Pulse Resp BP BP Pulse Ox 12/18/20 07:58 98.4 F 75 16 139/74 100 12/18/20 07:18 98.5 F 82 20 126/75 97 12/18/20 02:00 82 16 138/84 98 12/18/20 01:30 85 16 133/69 97 12/18/20 00:30 91 16 122/71 97 12/17/20 23:25 98.2 F 115 H 18 90/63 97 Intake and Output 12/17/20 12/18/20 12/18/20 22:59 06:59 14:59 Output Total 150 Balance -150 Output: Urine 150 Uretheral (Lai) 150 Other: Voiding Method Toilet Weight 68.039 kg 68.039 kg On physical examination, patient appears comfortable in no apparent distress. HEAD: Normocephalic, atraumatic. EYES: No scleral icterus. No conjunctival injection. MOUTH: No lesions, tongue midline. NECK: Trachea midline, no gross abnormalities. CHEST: Clear to auscultation with no wheezing or rhonchi appreciated. HEART: Regular rate and rhythm. ABDOMEN: Soft, obese. Bowel sounds are positive. No organomegaly. No guarding or rigidity. EXTREMITIES: No pedal edema. SKIN: No rashes, no jaundice. NEUROLOGIC: Alert and oriented x3. No focal deficits. Results CBC & Chem 7: 12/18/20 00:20 12/18/20 00:20 Labs: Abnormal Lab Results - Last 24 Hours (Table) 12/18/20 12/18/20 12/18/20 Range/Units 00:20 00:30 07:56 BUN 28 H (7-17) mg/dL Glucose 173 H (74-99) mg/dL POC Glucose (mg/dL) 121 H (75-99) mg/dL Ur Specific [place] 1.050 H (1.001-1.035) Urine Protein 1+ H (Negative) Urine Ketones 2+ H (Negative) Amorphous Sediment Rare H (None) /hpf Urine Mucus Moderate H (None) /hpf 12/18/20 Range/Units 11:50 BUN (7-17) mg/dL Glucose (74-99) mg/dL POC Glucose (mg/dL) 113 H (75-99) mg/dL Ur Specific [place] (1.001-1.035) Urine Protein (Negative) Urine Ketones (Negative) Amorphous Sediment (None) /hpf Urine Mucus (None) /hpf Comments: Report from X-ray right forearm reviewed. Assessment and Plan (1) Nausea & vomiting Narrative/Plan: 70-year-old female with multiple medical comorbidities who presents to the hospital due to dysuria and concerns over recurrent UTI. She also reported some flank pain and nausea and vomiting. One episode of diarrhea prior to presentation. Currently no nausea or vomiting and denying any abdominal pain. She reports last EGD and colonoscopy over 10 years ago. She denies any reflux, heartburn or peptic ulcer disease. Unclear etiology, may be related to recurrent UTI, gastroenteritis, or other etiology. Current Visit: No Status: Acute Code(s): R11.2 - NAUSEA WITH VOMITING, UNSPECIFIED SNOMED Code(s): 89041015 (2) Flank pain Current Visit: Yes Status: Acute Code(s): R10.9 - UNSPECIFIED ABDOMINAL PAIN SNOMED Code(s): 117567816 (3) Vomiting Current Visit: Yes Status: Acute Code(s): R11.10 - VOMITING, UNSPECIFIED SNOMED Code(s): 330123066 (4) Adrenal insufficiency Current Visit: No Status: Acute Code(s): E27.40 - UNSPECIFIED ADRENOCORTICAL INSUFFICIENCY SNOMED Code(s): 536671378 Plan: Supportive care Okay for diet as tolerated Protonix increased to twice daily Bentyl 10 mg as needed Ativan for possible abdominal cramping, the patient cautioned to take medicine only as needed as it can cause drowsiness and patient's over 65 No plans for endoscopic evaluation at this time Recommendation follow-up after discharge setting or 10 years since colonoscopy and she is due for screening At this time the gastroenterology service will sign off, there is no gastroen terology coverage this weekend and if the patient needs further evaluation she will need to be transferred to outside hospital as per discretion by primary team
[2020-12-18 20:31] LABS: Glucose,Whole Blood 182 mg/dL (75-99)
[2020-12-18] MEDS: METOPROLOL SUCCINATE (ER) 50 MG TAB.ER.24H PO SCH (20:31)
[2020-12-18] MEDS: ATORVASTATIN 40 MG TAB PO SCH (20:31)
[2020-12-19] MEDS: HYDROCORTISONE SUCCINATE 100 MG/2 ML VIAL IV SCH ×3 (03:53→21:02)
[2020-12-19] MEDS: SODIUM CHLORIDE 0.9% 1,000 ML IV SCH ×3 (03:54→23:10)
[2020-12-19] MEDS: HYDROmorphone 0.5 MG/0.5 ML SYRINGE IVP PRN ×3 (03:59→08:53)
[2020-12-19 07:12] LABS: Glucose,Whole Blood 244 mg/dL (75-99)
[2020-12-19] MEDS: PANTOPRAZOLE 40 MG TABLET PO SCH ×2 (07:47→17:11)
[2020-12-19] MEDS: FERROUS SULFATE 325 MG TAB PO SCH (07:47)
[2020-12-19] MEDS: MAGNESIUM OXIDE 400 MG TAB PO SCH (07:47)
[2020-12-19] MEDS: lisinopriL 20 MG TAB PO SCH (07:47)
[2020-12-19] MEDS: GABAPENTIN 100 MG CAP PO SCH ×3 (07:47→21:03)
[2020-12-19] MEDS: HYDROcodone/APAP 10-325MG 1 EACH TAB PO PRN ×3 (07:48→23:09)
[2020-12-19] MEDS: THIAMINE 100 MG TAB PO SCH (07:48)
[2020-12-19] MEDS: SPIRONOLACTONE 25 MG TAB PO SCH (07:48)
[2020-12-19] MEDS: BRIMONIDINE TARTRATE 0.2% DROPS 5 ML BTL RIGHT EYE SCH ×2 (07:49→21:01)
[2020-12-19] MEDS: VENLAFAXINE HCL ER 75 MG CAP PO SCH (07:49)
[2020-12-19] MEDS: INSULIN ASPART (NovoLOG) 100 UNIT/ML VIAL SQ SCH ×4 (07:50→21:02)
--- NOTE | 2020-12-19 09:22 | P.HPIM ---
History of Present Illness H&P Date: 12/18/20 Chief Complaint: R abdominal pain Melissa Pena is a 70 yo F with PMH of recurrent UTI, T2DM, adrenal insufficiency who was recently admitted with a UTI and discharged yesterday. During her admission she was treated with a course of IV invanz. Pt was seen by ID at that time and her blood and urine cultures did come back negative. She comes back to the hospital today complaining of R sided flank and abdominal pain. She states she got home and the pain was so bad and laseted long enough she came to the ED. On presentation vitals stable, labs unremarkable, UA with negative LE, nitrite, bacteria. Review of Systems All systems: negative Constitutional: Reports malaise, Denies chills, Denies fever Eyes: denies blurred vision, denies pain Ears, nose, mouth and throat: Denies headache, Denies sore throat Cardiovascular: Denies chest pain, Denies shortness of breath Respiratory: Denies cough Gastrointestinal: Reports abdominal pain, Denies diarrhea, Denies nausea, Denies vomiting Genitourinary: Denies dysuria, Denies hematuria Musculoskeletal: Denies myalgias Integumentary: Denies pruritus, Denies rash Neurological: Denies numbness, Denies weakness Psychiatric: Denies anxiety, Denies depression Endocrine: Denies fatigue, Denies weight change Past Medical History Past Medical History: Diabetes Mellitus, Deep Vein Thrombosis (DVT), Fibromyalgia, Hyperlipidemia, Hypertension, Osteoarthritis (OA), Pneumonia, Renal Disease, Sleep Apnea/CPAP/BIPAP, Vascular Disorder Additional Past Medical History / Comment(s): Pt recently admitted to [facility] On 02/23/20 with complicated UTI/migraine/nausea and vomiting. 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, DVT R calf in 1976, cardiac murmur, occipital neuraligia, balance issues-has narrowing of vessels "in the back of my head", vertigo, varicosities, states rt shoulder torn rotator cuff History of Any Multi-Drug Resistant Organisms: ESBL, MRSA, VRE Date of last positivie culture/infection: 11/25/20 ESBL;12/06/19 VRE; 03/10/11 MRSA MDRO Source:: Urine ESBL; Urine-VRE: MRSA 4th Right TOE Past Surgical History: Appendectomy, Back Surgery, Bladder Surgery, Breast Surgery, Cholecystectomy, Heart Catheterization, Hysterectomy, Orthopedic Surgery, Tonsillectomy Additional Past Surgical History / Comment(s): Lumbar fusions, bladder suspension, occipital nerve blocks, 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, R wrist/elbow nerve repair, bone removed R shoulder, 4th toe R foot partial amputation, bilateral feet/bunionectomies, R knee arthroscopies, R orbit decompression with ethmoidectomy and eyelid lift, EGD, colonoscopies, cystocopies, lithotripsy/stents, bilateral breast reduction, bilateral cataract removals, parathyroid surgery - April 2019, pain clinic procedures Past Anesthesia/Blood Transfusion Reactions: No Reported Reaction Additional Past Anesthesia/Blood Transfusion Reaction / Comment(s): never r ecieved blood Past Psychological History: Depression Smoking Status: Never smoker Past Alcohol Use History: None Reported Past Drug Use History: None Reported - Past Family History Father Family Medical History: Coronary Artery Disease (CAD), CVA/TIA, Diabetes Mellitus, Myocardial Infarction ([place]), Pneumonia Additional Family Medical History / Comment(s): Father at the age of 78yrs from [place] and pneumonia. Mother Family Medical History: Cancer, Congestive Heart Failure (CHF) Additional Family Medical History / Comment(s): Mother had uterine cancer. She recently at the age of 96yrs old from [facility]. Medications and Allergies Home Medications Medication Instructions Recorded Confirmed Type Cholecalciferol [Vitamin D3 (25 75 mcg PO DAILY 12/01/14 12/18/20 History Mcg = 1000 Iu)] Metoprolol Succinate (ER) [Toprol 50 mg PO HS 07/06/17 12/18/20 History XL] Meclizine [Antivert] 25 mg PO QID PRN 11/26/17 12/18/20 History Aspirin 81 mg PO DAILY #0 07/02/18 12/18/20 Rx Ferrous Sulfate [Iron (65 MG 325 mg PO DAILY 10/08/18 12/18/20 History Elemental)] Folic Acid 0.4 mg PO DAILY 10/08/18 12/18/20 History L.acidoph,Paracasei, B.lactis 2 cap PO BID 10/08/18 12/18/20 History [Probiotic] Melatonin 5 mg PO HS PRN 10/08/18 12/18/20 History Multivitamins, Thera Liquid 30 ml PO DAILY 10/08/18 12/18/20 History [Theragran Liquid (formulary)] Potassium 99 mg PO DAILY 10/08/18 12/18/20 History Thiamine [Vitamin B-1] 100 mg PO DAILY 10/08/18 12/18/20 History Vitamin B-Complex Drops 1 ml PO BID 10/08/18 12/18/20 History Atorvastatin [Lipitor] 40 mg PO HS #30 tab 11/16/18 12/18/20 Rx Venlafaxine HCl [Effexor XR] 75 mg PO DAILY 11/08/19 12/18/20 History Magnesium Oxide [Mag-Ox] 400 mg PO DAILY 12/06/19 12/18/20 History Gabapentin [Neurontin] 100 mg PO TID #9 cap 03/24/20 12/18/20 Rx HYDROcodone/APAP 10-325MG [[place] 1 tab PO QID PRN 04/16/20 12/18/20 History 10-325] C,E,Zinc,Copper 11/Cggha3b/Lut 1 cap PO DAILY 06/25/20 12/18/20 History [Ocuvite Adult 50 Plus Softgel] Cyanocobalamin (Vitamin B-12) 1,000 mcg PO DAILY 06/25/20 12/18/20 History [Vitamin B-12] Ondansetron HCl [Zofran] 4 mg PO Q6H PRN 06/25/20 12/18/20 History Spironolactone 50 mg PO DAILY 06/25/20 12/18/20 History Vitamin E 400 unit PO DAILY 06/25/20 12/18/20 History lisinopriL 40 mg PO DAILY 06/25/20 12/18/20 History Brimonidine Tartrate [Alphagan P 1 drop RIGHT EYE BID 11/26/20 12/18/20 History 0.2% Ophth Soln] Butalb/APAP/Caff 50-325-40Mg 1 tab PO TID PRN 11/26/20 12/18/20 History [Fioricet 50-325-40] Cholestyramine (with Sugar) 4 gm PO DAILY 11/26/20 12/18/20 History [Questran Packet] Cranberry [id number] Cap 1 cap PO BID 11/26/20 12/18/20 History Estrogens, Conjugated Cream 1 applicator VAGINAL DAILY 11/26/20 12/18/20 History [Premarin Cream] Glucagon [[place] Pfs 1-Pack Syringe] 1 mg SQ ONCE PRN 11/26/20 12/18/20 History Insulin Aspart [NovoLOG Flexpen] 11 units SQ AC-BRKFST 11/26/20 12/18/20 History Insulin Aspart [NovoLOG Flexpen] 20 units SQ AC-LUNCH 11/26/20 12/18/20 History Insulin Aspart [NovoLOG Flexpen] 26 unit SQ AC-SUPPER 11/26/20 12/18/20 History Insulin Aspart [NovoLOG Flexpen] See Protocol SQ AC-TID 11/26/20 12/18/20 History Metoclopramide HCl [Reglan] 5 mg PO TID PRN 11/26/20 12/18/20 History Pantoprazole Sodium [Protonix] 40 mg PO DAILY 11/26/20 12/18/20 History Promethazine HCl [Phenergan Syrup] 6.25 mg PO Q6H PRN 11/26/20 12/18/20 History Cephalexin [Keflex] 250 mg PO HS 12/11/20 12/18/20 History Insulin Glargine,Hum.rec.anlog 30 unit SQ HS 12/11/20 12/18/20 History [Lantus Solostar] Fluconazole [Diflucan] 100 mg PO HS #5 tab 12/16/20 12/18/20 Rx Hydrocortisone [Cortef] 5 mg PO HS #0 12/16/20 12/18/20 Rx Hydrocortisone [Cortef] 10 mg PO DAILY@1200 #0 12/16/20 12/18/20 Rx Hydrocortisone [Cortef] 15 mg PO DAILY #0 12/16/20 12/18/20 Rx Nystatin 1 applic TOPICAL DAILY PRN #15 gram 12/16/20 12/18/20 Rx Nystatin 100,000 Unit/gm Powd 1 applic TOPICAL TID #15 g 12/16/20 12/18/20 Rx [Mycostatin Powder] Allergies Allergy/AdvReac Type Severity Reaction Status Date / Time butorphanol tartrate Allergy BLISTERS Verified 12/17/20 23:29 [From Stadol] IN MOUTH ceftriaxone [From Rocephin] Allergy Unknown Verified 12/17/20 23:29 clarithromycin [From Biaxin] Allergy Rash/Hives Verified 12/17/20 23:29 clindamycin Allergy Unknown Verified 12/17/20 23:29 codeine Allergy Rash/Hives Verified 12/17/20 23:29 ergotamine tartrate Allergy Unknown Verified 12/17/20 23:29 [From Cafergot] erythromycin base Allergy RASH, GI Verified 12/17/20 23:29 [From E-Mycin] SYMPTOMS ketorolac tromethamine Allergy Rash/Hives Verified 12/17/20 23:29 [From Toradol] liraglutide [From Victoza] Allergy Rash/Hives Verified 12/17/20 23:29 morphine Allergy Rash/Hives Verified 12/17/20 23:29 Penicillins Allergy Rash/Hives Verified 12/17/20 23:29 pentazocine lactate Allergy SEVERE Verified 12/17/20 23:29 [From Talwin] BLISTERS IN MOUTH pregabalin [From Lyrica] Allergy Rash/Hives Verified 12/17/20 23:29 propoxyphene HCl Allergy Rash/Hives Verified 12/17/20 23:29 [From Darvon] Sulfa (Sulfonamide Allergy Rash/Hives Verified 12/17/20 23:29 Antibiotics) tramadol Allergy Unknown Verified 12/17/20 23:29 monosodium glutamate [MSG] AdvReac Nausea & Verified 12/17/20 23:29 Vomiting nalbuphine HCl [From Nubain] AdvReac Nausea & Verified 12/17/20 23:29 Vomiting Physical Exam Vitals: Vital Signs Temp Pulse Pulse Resp BP BP Pulse Ox 12/18/20 19:20 99.2 F 78 17 124/68 94 L 12/18/20 14:00 98.4 F 94 16 118/77 98 12/18/20 07:58 98.4 F 75 16 139/74 100 12/18/20 07:18 98.5 F 82 20 126/75 97 12/18/20 02:00 82 16 138/84 98 12/18/20 01:30 85 16 133/69 97 12/18/20 00:30 91 16 122/71 97 Intake and Output 12/18/20 12/18/20 12/19/20 14:59 22:59 06:59 Other: Voiding Method Toilet # Voids 2 # Bowel Movements 3 Weight 68.039 kg General: well nourished, well developed, NAD. Vitals reviewed Eyes: PERRL, EOMI, conjunctiva normal HENT: normocephalic, mucus membranes moist Neck: supple, no JVD Lungs: normal respiratory effort, no wheezes or rales CV: Regular rate and rhythm, no murmur. Peripheral pulses 2+ Abdomen: soft, nondistended, no organomegaly. R sided abdominal pain Lymph: no cervical or axillary LAD Skin: warm and dry. Neuro: A&Ox3, normal mood and affect Results CBC & Chem 7: 12/18/20 00:20 12/18/20 00:20 Labs: Abnormal Lab Results - Last 24 Hours (Table) 12/18/20 12/18/20 12/18/20 Range/Units 00:20 00:30 07:56 BUN 28 H (7-17) mg/dL Glucose 173 H (74-99) mg/dL POC Glucose (mg/dL) 121 H (75-99) mg/dL Ur Specific [place] 1.050 H (1.001-1.035) Urine Protein 1+ H (Negative) Urine Ketones 2+ H (Negative) Amorphous Sediment Rare H (None) /hpf Urine Mucus Moderate H (None) /hpf 12/18/20 12/18/20 12/18/20 Range/Units 11:50 16:29 20:29 BUN (7-17) mg/dL Glucose (74-99) mg/dL POC Glucose (mg/dL) 113 H 166 H 182 H (75-99) mg/dL Ur Specific [place] (1.001-1.035) Urine Protein (Negative) Urine Ketones (Negative) Amorphous Sediment (None) /hpf Urine Mucus (None) /hpf Thrombosis Risk Factor Assmnt - Choose All That Apply Each Factor Represents 1 point: Medical pt on bed rest, Obesity (BMI >25) Each Risk Factor Represents 2 Points: Age 61-74 years Each Risk Factor Represents 3 Points: History of DVT/PE Thrombosis Risk Factor Assessment Total Risk Factor Score: 7 Thrombosis Risk Factor Assessment Level: High Risk Assessment and Plan Plan: 1. Chronic intractable R sided abdominal pain in the setting of recently treated UTI. No evidence of continued UTI. GI consulted for evaluation of abd pain. Co ntinue home prilosec, zofran, reglan prn. Consider MSK. Add benyl. Pain control. Consider urology eval 2. T2DM. Continue with accucheck, sliding scale 3. Adrenal insufficiency. Continue with stress dose hydrocortisone 4. HTN. Continue lisinopril, metoprolol
[2020-12-19 11:27] LABS: Glucose,Whole Blood 265 mg/dL (75-99)
[2020-12-19 13:26] VITALS: BMI 29.2
--- NOTE | 2020-12-19 15:59 | P.PN ---
Subjective Progress Note Date: 12/19/20 Principal diagnosis: Chronic intractable R sided abdominal pain in the setting of recently treated UTI Mr. Pena is a 70-year-old female with a past medical history of recurrent UTI, type 2 diabetes mellitus, mitral insufficiency who was recently admitted to the hospital with UTI treated with Invanz and discharged home coming in stating that she has right-sided flank pain and abdominal pain. Patient states that she went home and her pains were so bad and so she had to come back to the ER. On reviewing the previous admission records, she was treated with Invanz but her cultures have been negative and she was discharged home with no antibiotics. On 12/19/2020- patient is seen and examined at the bedside. Patient is comfortably lying in bed appears to be no acute distress. Patient states that she does not have any abdominal pain. No nausea vomiting or diarrhea. No suprapubic discomfort. No back pain. She denies having any chest pain or palpitations. No dysuria or hematuria. She denies having any fevers chills or rigors. Reviewing her labs from yesterday urine analysis is negative for nitrites and leukocyte Estrace. C. diff negative. Patient also had an x-ray of her right forearm which showed no evidence of any acute fracture. On reviewing her vitals from this morning temperature of 98.5, 160s on respiratory rate 18, blood pressure 145/73, saturating at 97% on room air. No new labs from this morning. On reviewing the medication she is on Tylenol, Gaston, Lipitor, Bentyl, ferrous sulfate, Neurontin, hydrocortisone, NovoLog, Zestril, magnesium, melatonin, Reglan, metoprolol, Narcan, Zofran, Protonix, promethazine, spironolactone, thiamine, venlafaxine. Objective - Vital Signs Vital signs: Vital Signs Temp 98.2 F 12/19/20 07:28 Pulse 58 L 12/19/20 08:00 Resp 18 12/19/20 08:00 BP 152/78 12/19/20 07:28 Pulse Ox 97 12/19/20 07:28 Intake & Output 12/18/20 12/19/20 12/19/20 18:59 06:59 18:59 Output Total 500 Balance -500 Weight 68.039 kg Output: Urine 500 Other: Voiding Method Toilet Toilet Bedside Commode # Voids 2 2 # Bowel Movements 3 - Exam General: well nourished, well developed, NAD Eyes: PERRL, EOMI, conjunctiva normal HENT: normocephalic, mucus membranes moist Neck: supple, no JVD Lungs: normal respiratory effort, no wheezes or rales CV: Regular rate and rhythm, no murmur. Peripheral pulses 2+ Abdomen: soft, nondistended, no organomegaly. Bowel sounds normal. Lymph: no cervical or axillary LAD Skin: warm and dry. Neuro: A&Ox3, normal mood and affect - Labs CBC & Chem 7: 12/18/20 00:20 12/18/20 00:20 Labs: Abnormal Lab Results - Last 24 Hours (Table) 12/18/20 12/18/20 12/19/20 Range/Units 16:29 20:29 07:11 POC Glucose (mg/dL) 166 H 182 H 244 H (75-99) mg/dL 12/19/20 Range/Units 11:26 POC Glucose (mg/dL) 265 H (75-99) mg/dL Assessment and Plan Assessment: ASSESSMENT Chronic intractable right-sided abdominal pain Type 2 diabetes mellitus Adrenal insufficiency Hypertension History of DVT Hyperlipidemia Obstructive sleep apnea Recurrent UTI History of nephrolithiasis History of bilateral pelvic fractures History of vertigo History of ESBL, MRSA, VRE PLAN: Patient had urine analysis negative for leukocyte esterase or nitrites. Patient seems to be asymptomatic currently. She was seen by GI and cleared for discharge yesterday. So the cause for her abdominal pain could be abdominal cramping, she was started on Bentyl. Continue the patient current medication regimen. Anticipate discharge in the next 24-48 hours.
[2020-12-19 16:36] LABS: Glucose,Whole Blood 284 mg/dL (75-99)
[2020-12-19] MEDS ORDERED: INSULIN ASPART (NovoLOG) 100 UNIT/ML VIAL SQ ONE (17:00)
[2020-12-19 20:41] LABS: Glucose,Whole Blood 209 mg/dL (75-99)
[2020-12-19] MEDS: ATORVASTATIN 40 MG TAB PO SCH (21:03)
[2020-12-19] MEDS: METOPROLOL SUCCINATE (ER) 50 MG TAB.ER.24H PO SCH (21:03)
[2020-12-20] MEDS: HYDROcodone/APAP 10-325MG 1 EACH TAB PO PRN ×4 (04:55→23:24)
[2020-12-20] MEDS: HYDROCORTISONE SUCCINATE 100 MG/2 ML VIAL IV SCH ×3 (04:56→19:00)
[2020-12-20] MEDS: SODIUM CHLORIDE 0.9% 1,000 ML IV SCH ×3 (05:03→19:00)
[2020-12-20 07:01] LABS: Glucose,Whole Blood 228 mg/dL (75-99)
[2020-12-20] MEDS: SPIRONOLACTONE 25 MG TAB PO SCH (07:35)
[2020-12-20] MEDS: INSULIN ASPART (NovoLOG) 100 UNIT/ML VIAL SQ SCH ×4 (07:35→21:02)
[2020-12-20] MEDS: MAGNESIUM OXIDE 400 MG TAB PO SCH (07:35)
[2020-12-20] MEDS: VENLAFAXINE HCL ER 75 MG CAP PO SCH (07:35)
[2020-12-20] MEDS: FERROUS SULFATE 325 MG TAB PO SCH (07:35)
[2020-12-20] MEDS: GABAPENTIN 100 MG CAP PO SCH ×3 (07:35→21:00)
[2020-12-20] MEDS: lisinopriL 20 MG TAB PO SCH (07:35)
[2020-12-20] MEDS: THIAMINE 100 MG TAB PO SCH (07:35)
[2020-12-20] MEDS: PANTOPRAZOLE 40 MG TABLET PO SCH ×2 (07:35→17:10)
[2020-12-20] MEDS: BRIMONIDINE TARTRATE 0.2% DROPS 5 ML BTL RIGHT EYE SCH ×2 (07:36→21:01)
[2020-12-20 09:30] LABS: Basophils # (A) 0 X 10*3/uL (0.00-0.10); Basophils % (A) 0 %; Eosinophils # (A) 0.17 X 10*3/uL (0.04-0.35); Eosinophils % (A) 2.4 %; HCT 35.1 % (37.2-46.3); HGB 11.1 g/dL (12.0-15.0); Lymphocytes # (A) 1.66 X 10*3/uL (0.90-5.00); Lymphocytes % (A) 23.9 %; MCH 29.9 pg (27.0-32.0); MCHC 31.6 g/dL (32.0-37.0); MCV 94.6 fL (80.0-97.0); Mean Platelet Volume 10.7 fL (9.5-12.2); Monocytes # (A) 0.47 X 10*3/uL (0.20-1.00); Monocytes % (A) 6.8 %; Neutrophils # (A) 4.61 X 10*3/uL (1.80-7.70); Neutrophils % (A) 66.3 %; Platelet Count 173 X 10*3/uL (140-440); RBC 3.71 X 10*6/uL (4.10-5.20); RDW 13.5 % (11.5-14.5); WBC 6.95 X 10*3/uL (4.50-10.00)
[2020-12-20 09:58] LABS: African American GFR (CKD) 112.9 (60.0-200.0); Anion Gap 8.1 mmol/L (4.00-12.00); Calcium 7.9 mg/dL (8.7-10.3); Carbon Dioxide 28.9 mmol/L (21.6-31.8); Non-African American GFR(CKD) 97.4 (60.0-200.0); Potassium 3.7 mmol/L (3.5-5.5)
[2020-12-20 11:24] LABS: Glucose,Whole Blood 280 mg/dL (75-99)
[2020-12-20 16:27] LABS: Glucose,Whole Blood 227 mg/dL (75-99)
[2020-12-20 20:17] LABS: Glucose,Whole Blood 335 mg/dL (75-99)
[2020-12-20] MEDS ORDERED: INSULIN ASPART (NovoLOG) 100 UNIT/ML VIAL SQ ONE (20:53)
[2020-12-20] MEDS ORDERED: INSULIN DETEMIR (LEVEMIR) 100 UNIT/ML SYR SQ SCH (21:00)
[2020-12-20] MEDS: ATORVASTATIN 40 MG TAB PO SCH (21:00)
[2020-12-20] MEDS: METOPROLOL SUCCINATE (ER) 50 MG TAB.ER.24H PO SCH (21:01)
--- NOTE | 2020-12-21 02:03 | P.PN ---
Subjective Progress Note Date: 12/20/20 Principal diagnosis: Chronic intractable R sided abdominal pain in the setting of recently treated UTI Mr. Pena is a 70-year-old female with a past medical history of recurrent UTI, type 2 diabetes mellitus, mitral insufficiency who was recently admitted to the hospital with UTI treated with Invanz and discharged home coming in stating that she has right-sided flank pain and abdominal pain. Patient states that she went home and her pains were so bad and so she had to come back to the ER. On reviewing the previous admission records, she was treated with Invanz but her cultures have been negative and she was discharged home with no antibiotics. On 12/19/2020- patient is seen and examined at the bedside. Patient is comfortably lying in bed appears to be no acute distress. Patient states that she does not have any abdominal pain. No nausea vomiting or diarrhea. No suprapubic discomfort. No back pain. She denies having any chest pain or palpitations. No dysuria or hematuria. She denies having any fevers chills or rigors. Reviewing her labs from yesterday urine analysis is negative for nitrites and leukocyte Estrace. C. diff negative. Patient also had an x-ray of her right forearm which showed no evidence of any acute fracture. On reviewing her vitals from this morning temperature of 98.5, 160s on respiratory rate 18, blood pressure 145/73, saturating at 97% on room air. No new labs from this morning. On 12/20/2020 -patient is seen and examined at the bedside. She has no acute complaints. Patient denies having any abdominal pain nausea vomiting or diarrhea. Patient's vitals have been reviewed. She is afebrile heart rate between 70s to 90s, blood pressure 184/98 saturating at 95% on room air. Patient has labs done showing white count of 6.9, hemoglobin 9.4, platelets 173. Sodium 143, potassium 3.7, chloride 1 6, bicarb 28, BUN 15, creatinine 0.5. On reviewing the medication she is on Tylenol, Royal, Lipitor, Bentyl, ferrous sulfate, Neurontin, hydrocortisone, NovoLog, Zestril, magnesium, melatonin, Reglan, metoprolol, Narcan, Zofran, Protonix, promethazine, spironolactone, thiamine, venlafaxine. Objective - Vital Signs Vital signs: Vital Signs Temp 98.9 F 12/20/20 19:43 Pulse 93 12/20/20 20:00 Resp 16 12/20/20 20:00 BP 130/78 12/20/20 19:43 Pulse Ox 93 L 12/20/20 19:43 Intake & Output 12/20/20 12/20/20 12/21/20 06:59 18:59 06:59 Intake Total 120 200 Output Total 2500 Balance -2380 200 Intake: Oral 120 200 Output: Urine 2500 Other: Voiding Method Bedside Commode Bedside Commode Bedside Commode # Voids 5 3 1 # Bowel Movements 1 2 1 - Exam General: well nourished, well developed, NAD Eyes: PERRL, EOMI, conjunctiva normal HENT: normocephalic, mucus membranes moist Lungs: normal respiratory effort, no wheezes or rales CV: Regular rate and rhythm, no murmur. Peripheral pulses 2+ Abdomen: soft, nondistended, no organomegaly. Bowel sounds normal. Neuro: A&Ox3, normal mood and affect - Labs CBC & Chem 7: 12/20/20 05:59 12/20/20 05:59 Labs: Abnormal Lab Results - Last 24 Hours (Table) 12/20/20 12/20/20 12/20/20 Range/Units 05:59 05:59 07:00 RBC 3.71 L (4.10-5.20) X 10*6/uL Hgb 11.1 L (12.0-15.0) g/dL Hct 35.1 L (37.2-46.3) % MCHC 31.6 L (32.0-37.0) g/dL Creatinine 0.5 L (0.6-1.5) mg/dL BUN/Creatinine Ratio 30.00 H (12.00-20.00) Ratio Glucose 231 H (70-110) mg/dL POC Glucose (mg/dL) 228 H (75-99) mg/dL Calcium 7.9 L (8.7-10.3) mg/dL 12/20/20 12/20/20 12/20/20 Range/Units 11:23 16:25 20:15 RBC (4.10-5.20) X 10*6/uL Hgb (12.0-15.0) g/dL Hct (37.2-46.3) % MCHC (32.0-37.0) g/dL Creatinine (0.6-1.5) mg/dL BUN/Creatinine Ratio (12.00-20.00) Ratio Glucose (70-110) mg/dL POC Glucose (mg/dL) 280 H 227 H 335 H (75-99) mg/dL Calcium (8.7-10.3) mg/dL Assessment and Plan Assessment: ASSESSMENT Chronic intractable right-sided abdominal pain Type 2 diabetes mellitus Adrenal insufficiency Hypertension History of DVT Hyperlipidemia Obstructive sleep apnea Recurrent UTI History of nephrolithiasis History of bilateral pelvic fractures History of vertigo History of ESBL, MRSA, VRE PLAN: Patient had urine analysis negative for leukocyte esterase or nitrites. Patient seems to be asymptomatic currently. She was seen by GI and cleared for discharge. So the cause for her abdominal pain could be abdominal cramping, she was started on Bentyl. Continue the patient current medication regimen. Anticipate discharge in the next 24 hours.
[2020-12-21] MEDS: SODIUM CHLORIDE 0.9% 1,000 ML IV SCH (03:11)
[2020-12-21] MEDS: HYDROCORTISONE SUCCINATE 100 MG/2 ML VIAL IV SCH (03:14)
[2020-12-21] MEDS: HYDROcodone/APAP 10-325MG 1 EACH TAB PO PRN ×2 (05:22→10:56)
[2020-12-21] MEDS: INSULIN ASPART (NovoLOG) 100 UNIT/ML VIAL SQ SCH (07:44)
[2020-12-21] MEDS: FERROUS SULFATE 325 MG TAB PO SCH (07:44)
[2020-12-21] MEDS: lisinopriL 20 MG TAB PO SCH (07:44)
[2020-12-21] MEDS: GABAPENTIN 100 MG CAP PO SCH (07:44)
[2020-12-21] MEDS: SPIRONOLACTONE 25 MG TAB PO SCH (07:44)
[2020-12-21] MEDS: MAGNESIUM OXIDE 400 MG TAB PO SCH (07:44)
[2020-12-21 07:45] LABS: Glucose,Whole Blood 230 mg/dL (75-99)
[2020-12-21] MEDS: VENLAFAXINE HCL ER 75 MG CAP PO SCH (07:45)
[2020-12-21] MEDS: PANTOPRAZOLE 40 MG TABLET PO SCH (07:45)
[2020-12-21] MEDS: THIAMINE 100 MG TAB PO SCH (07:45)
[2020-12-21] MEDS: BRIMONIDINE TARTRATE 0.2% DROPS 5 ML BTL RIGHT EYE SCH (07:45)
[2020-12-21 08:31] VITALS: BP 158/68; PULSE 69; RESP 16; TEMP 99.3
--- NOTE | 2020-12-21 09:16 | P.DS ---
Providers Date of admission: 12/21/20 07:54 Expected date of discharge: 12/21/20 Attending physician: Andrew Gonsales MD Primary care physician: Andrew Gonsales MD Hospital Course: Jean is a 70-year-old female with a past medical history of recurrent UTI, type 2 diabetes mellitus, mitral insufficiency who was recently admitted to the hospital with UTI treated with Invanz and discharged home coming in stating that she has right-sided flank pain and abdominal pain. Patient states that she went home and her pains were so bad and so she had to come back to the ER. On reviewing the previous admission records, she was treated with Invanz but her cultures have been negative and she was discharged home with no antibiotics. On 12/19/2020- patient is seen and examined at the bedside. Patient is comfortably lying in bed appears to be no acute distress. Patient states that she does not have any abdominal pain. No nausea vomiting or diarrhea. No suprapubic discomfort. No back pain. She denies having any chest pain or palpitations. No dysuria or hematuria. She denies having any fevers chills or rigors. Reviewing her labs from yesterday urine analysis is negative for nitrites and leukocyte Estrace. C. diff negative. Patient also had an x-ray of her right forearm which showed no evidence of any acute fracture. On reviewing her vitals from this morning temperature of 98.5, 160s on respiratory rate 18, blood pressure 145/73, saturating at 97% on room air. No new labs from this morning. On 12/20/2020 -patient is seen and examined at the bedside. She has no acute complaints. Patient denies having any abdominal pain nausea vomiting or diarrhea. Patient's vitals have been reviewed. She is afebrile heart rate between 70s to 90s, blood pressure 184/98 saturating at 95% on room air. Patient has labs done showing white count of 6.9, hemoglobin 9.4, platelets 173. Sodium 143, potassium 3.7, chloride 1 6, bicarb 28, BUN 15, creatinine 0.5. Pt with significant clinical improvement, no further abdominal pain or nausea. Tolerating diet. She is discharged to resume all home medications and can use bentyl as needed. She will drop down to her home Cortef dose. Keep appt with PCP. Discharge exam: well developed, NAD RRR, no murmur CTAB Soft, nontender Patient Condition at Discharge: Good Plan - Discharge Summary Discharge Rx Participant: No New Discharge Prescriptions: New Dicyclomine [Bentyl] 10 mg PO QID PRN #20 cap PRN Reason: Dyspepsia Continue Cholecalciferol [Vitamin D3 (25 Mcg = 1000 Iu)] 75 mcg PO DAILY Metoprolol Succinate (ER) [Toprol XL] 50 mg PO HS Meclizine [Antivert] 25 mg PO QID PRN PRN Reason: Vertigo Aspirin 81 mg PO DAILY #0 Ferrous Sulfate [Iron (65 MG Elemental)] 325 mg PO DAILY Vitamin B-Complex Drops 1 ml PO BID Thiamine [Vitamin B-1] 100 mg PO DAILY Folic Acid 0.4 mg PO DAILY Multivitamins, Thera Liquid [Theragran Liquid (formulary)] 30 ml PO DAILY L.acidoph,Paracasei, B.lactis [Probiotic] 2 cap PO BID Melatonin 5 mg PO HS PRN PRN Reason: Insomnia Potassium 99 mg PO DAILY Atorvastatin [Lipitor] 40 mg PO HS #30 tab Venlafaxine HCl [Effexor XR] 75 mg PO DAILY Magnesium Oxide [Mag-Ox] 400 mg PO DAILY Gabapentin [Neurontin] 100 mg PO TID #9 cap HYDROcodone/APAP 10-325MG [[place] 10-325] 1 tab PO QID PRN PRN Reason: Pain lisinopriL 40 mg PO DAILY Spironolactone 50 mg PO DAILY C,E,Zinc,Copper 11/Lqsbf0h/Lut [Ocuvite Adult 50 Plus Softgel] 1 cap PO DAILY Cyanocobalamin (Vitamin B-12) [Vitamin B-12] 1,000 mcg PO DAILY Vitamin E 400 unit PO DAILY Ondansetron HCl [Zofran] 4 mg PO Q6H PRN PRN Reason: Nausea Cholestyramine (with Sugar) [Questran Packet] 4 gm PO DAILY Cranberry 54027yl Cap 1 cap PO BID Brimonidine Tartrate [Alphagan P 0.2% Ophth Soln] 1 drop RIGHT EYE BID Promethazine HCl [Phenergan Syrup] 6.25 mg PO Q6H PRN PRN Reason: Nausea Butalb/APAP/Caff 50-325-40Mg [Fioricet 50-325-40] 1 tab PO TID PRN PRN Reason: Migraine Headache Insulin Aspart [NovoLOG Flexpen] 26 unit SQ AC-SUPPER Pantoprazole Sodium [Protonix] 40 mg PO DAILY Hydrocortisone [Cortef] 5 mg PO HS #0 Hydrocortisone [Cortef] 10 mg PO DAILY@1200 #0 Hydrocortisone [Cortef] 15 mg PO DAILY #0 Nystatin 1 applic TOPICAL DAILY PRN #15 gram PRN Reason: Skin Irritation Fluconazole [Diflucan] 100 mg PO HS #5 tab Estrogens, Conjugated Cream [Premarin Cream] 1 applicator VAGINAL DAILY Glucagon [Gvoke Pfs 1-Pack Syringe] 1 mg SQ ONCE PRN PRN Reason: severe hypoglycemia Insulin Aspart [NovoLOG Flexpen] See Protocol SQ AC-TID Insulin Aspart [NovoLOG Flexpen] 11 units SQ AC-BRKFST Insulin Aspart [NovoLOG Flexpen] 20 units SQ AC-LUNCH Metoclopramide HCl [Reglan] 5 mg PO TID PRN PRN Reason: Nausea Cephalexin [Keflex] 250 mg PO HS Insulin Glargine,Hum.rec.anlog [Lantus Solostar] 30 unit SQ HS Nystatin 100,000 Unit/gm Powd [Mycostatin Powder] 1 applic TOPICAL TID #15 g Discharge Medication List Cholecalciferol [Vitamin D3 (25 Mcg = 1000 Iu)] 75 mcg PO DAILY 12/01/14 [History] Metoprolol Succinate (ER) [Toprol XL] 50 mg PO HS 07/06/17 [History] Meclizine [Antivert] 25 mg PO QID PRN 11/26/17 [History] Aspirin 81 mg PO DAILY #0 07/02/18 [Rx] Ferrous Sulfate [Iron (65 MG Elemental)] 325 mg PO DAILY 10/08/18 [History] Folic Acid 0.4 mg PO DAILY 10/08/18 [History] L.acidoph,Paracasei, B.lactis [Probiotic] 2 cap PO BID 10/08/18 [History] Melatonin 5 mg PO HS PRN 10/08/18 [History] Multivitamins, Thera Liquid [Theragran Liquid (formulary)] 30 ml PO DAILY 10/08/18 [History] Potassium 99 mg PO DAILY 10/08/18 [History] Thiamine [Vitamin B-1] 100 mg PO DAILY 10/08/18 [History] Vitamin B-Complex Drops 1 ml PO BID 10/08/18 [History] Atorvastatin [Lipitor] 40 mg PO HS #30 tab 11/16/18 [Rx] Venlafaxine HCl [Effexor XR] 75 mg PO DAILY 11/08/19 [History] Magnesium Oxide [Mag-Ox] 400 mg PO DAILY 12/06/19 [History] Gabapentin [Neurontin] 100 mg PO TID #9 cap 03/24/20 [Rx] HYDROcodone/APAP 10-325MG [[place] 10-325] 1 tab PO QID PRN 04/16/20 [History] C,E,Zinc,Copper 11/Lvoiv8e/Lut [Ocuvite Adult 50 Plus Softgel] 1 cap PO DAILY 06/25/20 [History] Cyanocobalamin (Vitamin B-12) [Vitamin B-12] 1,000 mcg PO DAILY 06/25/20 [History] Ondansetron HCl [Zofran] 4 mg PO Q6H PRN 06/25/20 [History] Spironolactone 50 mg PO DAILY 06/25/20 [History] Vitamin E 400 unit PO DAILY 06/25/20 [History] lisinopriL 40 mg PO DAILY 06/25/20 [History] Brimonidine Tartrate [Alphagan P 0.2% Ophth Soln] 1 drop RIGHT EYE BID 11/26/20 [History] Butalb/APAP/Caff 50-325-40Mg [Fioricet 50-325-40] 1 tab PO TID PRN 11/26/20 [History] Cholestyramine (with Sugar) [Questran Packet] 4 gm PO DAILY 11/26/20 [History] Cranberry [id number] Cap 1 cap PO BID 11/26/20 [History] Estrogens, Conjugated Cream [Premarin Cream] 1 applicator VAGINAL DAILY 11/26/20 [History] Glucagon [Gvoke Pfs 1-Pack Syringe] 1 mg SQ ONCE PRN 11/26/20 [History] Insulin Aspart [NovoLOG Flexpen] 11 units SQ AC-BRKFST 11/26/20 [History] Insulin Aspart [NovoLOG Flexpen] 20 units SQ AC-LUNCH 11/26/20 [History] Insulin Aspart [NovoLOG Flexpen] 26 unit SQ AC-SUPPER 11/26/20 [History] Insulin Aspart [NovoLOG Flexpen] See Protocol SQ AC-TID 11/26/20 [History] Metoclopramide HCl [Reglan] 5 mg PO TID PRN 11/26/20 [History] Pantoprazole Sodium [Protonix] 40 mg PO DAILY 11/26/20 [History] Promethazine HCl [Phenergan Syrup] 6.25 mg PO Q6H PRN 11/26/20 [History] Cephalexin [Keflex] 250 mg PO HS 12/11/20 [History] Insulin Glargine,Hum.rec.anlog [Lantus Solostar] 30 unit SQ HS 12/11/20 [History] Fluconazole [Diflucan] 100 mg PO HS #5 tab 12/16/20 [Rx] Hydrocortisone [Cortef] 5 mg PO HS #0 12/16/20 [Rx] Hydrocortisone [Cortef] 10 mg PO DAILY@1200 #0 12/16/20 [Rx] Hydrocortisone [Cortef] 15 mg PO DAILY #0 12/16/20 [Rx] Nystatin 1 applic TOPICAL DAILY PRN #15 gram 12/16/20 [Rx] Nystatin 100,000 Unit/gm Powd [Mycostatin Powder] 1 applic TOPICAL TID #15 g 12/16/20 [Rx] Dicyclomine [Bentyl] 10 mg PO QID PRN #20 cap 12/21/20 [Rx] Follow up Appointment(s)/Referral(s): Andrew Gonsales MD [Primary Care Provider] - 1-2 days [facility], [NON-STAFF] - As Needed Patient Instructions/Handouts: Acute Nausea and Vomiting (ED) Discharge Disposition: HOME SELF-CARE
== END 2020-12-21 13:28 | disposition home or self-care (01) | DRG 690 ==
LOC: EC 23:23 → 4SSUR 12-18 03:47 → OBSVTOIN 12-21 07:54
PROVIDERS: ADMIT Family Medicine; ATTEND Family Medicine
DX: N39.0 Urinary tract infection, site not specified (principal); E27.40 Unspecified adrenocortical insufficiency; Z20.822 Contact with and (suspected) exposure to COVID-19; E11.9 Type 2 diabetes mellitus without complications; E78.5 Hyperlipidemia, unspecified; E86.0 Dehydration; F32.9 Major depressive disorder, single episode, unspecified; E11.42 Type 2 diabetes mellitus with diabetic polyneuropathy; G43.909 Migraine, unspecified, not intractable, without status migrainosus; G47.33 Obstructive sleep apnea (adult) (pediatric); G89.29 Other chronic pain; I10 Essential (primary) hypertension; I34.0 Nonrheumatic mitral (valve) insufficiency; J42 Unspecified chronic bronchitis; M79.7 Fibromyalgia; W18.30XA Fall on same level, unspecified, initial encounter; Z79.4 Long term (current) use of insulin; Z79.82 Long term (current) use of aspirin; Z79.899 Other long term (current) drug therapy; Z86.19 Personal history of other infectious and parasitic diseases; Z86.718 Personal history of other venous thrombosis and embolism; Z87.440 Personal history of urinary (tract) infections; Z87.442 Personal history of urinary calculi; Z90.710 Acquired absence of both cervix and uterus; Z87.81 Personal history of (healed) traumatic fracture; Z98.42 Cataract extraction status, left eye; Z98.41 Cataract extraction status, right eye; Z88.8 Allergy status to other drugs, medicaments and biological substances; Z88.1 Allergy status to other antibiotic agents; Z98.1 Arthrodesis status; Z87.01 Personal history of pneumonia (recurrent); Z88.5 Allergy status to narcotic agent; Z88.0 Allergy status to penicillin; Z89.431 Acquired absence of right foot; Z90.49 Acquired absence of other specified parts of digestive tract
CPT/HCPCS: 36415; 80048; 81001; 85025; 87324; 93005; 96360; 96361; 96372; 99285

== ENCOUNTER 2020-12-29 13:53 | Observation (INO) | payer MEDICARE, BC ==
[2020-12-29] MEDS ORDERED: SODIUM CHLORIDE 0.9% 1,000 ML IV STA (14:21)
[2020-12-29] MEDS ORDERED: ONDANSETRON 4 MG/2 ML VIAL IVP STA (14:21)
[2020-12-29] MEDS ORDERED: HYDROmorphone 0.5 MG/0.5 ML SYRINGE IVP STA ×2 (14:23→16:39)
[2020-12-29] MEDS ORDERED: HYDROCORTISONE SUCCINATE 100 MG/2 ML VIAL IV STA (14:23)
[2020-12-29] MEDS ORDERED: lisinopriL 20 MG TAB PO STA ×2 (14:36→23:14)
[2020-12-29] MEDS ORDERED: METOPROLOL SUCCINATE (ER) 50 MG TAB.ER.24H PO STA (14:36)
--- NOTE | 2020-12-29 15:05 | ED ---
General Adult HPI - General Chief complaint: Weakness Stated complaint: Weakness Time Seen by Provider: 12/29/20 13:54 Source: patient, EMS Mode of arrival: EMS Limitations: no limitations - History of Present Illness Initial comments: 70-year-old female with a couple located past medical history including sufficiency presents to the emergency room for a chief of weakness. Patient states she has had increased weakness for the past 2 days. Patient reports that she was just in the hospital for UTI and still does have some dysuria. Patient denies fevers. Patient also had a fall about a week ago and hurt her back. She denies loss of consciousness. Denies bladder or bowel changes, saddle anesthesia, fevers, or leg weakness. Patient denies any chest pain or shortness of breath.Patient has no other complaints at this time including shortness of breath, chest pain, abdominal pain, nausea or vomiting, headache, or visual changes. - Related Data Home Medications Medication Instructions Recorded Confirmed RX: Cholecalciferol [Vitamin D3 75 mcg PO DAILY 12/01/14 12/29/20 (25 Mcg = 1000 Iu)] RX: Metoprolol Succinate (ER) 50 mg PO HS 07/06/17 12/29/20 [Toprol XL] RX: Meclizine [Antivert] 25 mg PO QID PRN 11/26/17 12/29/20 RX: Ferrous Sulfate [Iron (65 MG 325 mg PO DAILY 10/08/18 12/29/20 Elemental)] RX: Folic Acid 0.4 mg PO DAILY 10/08/18 12/29/20 RX: L.acidoph,Paracasei, B.lactis 2 cap PO BID 10/08/18 12/29/20 [Probiotic] RX: Melatonin 5 mg PO HS PRN 10/08/18 12/29/20 RX: Multivitamins, Thera Liquid 30 ml PO DAILY 10/08/18 12/29/20 [Theragran Liquid (formulary)] RX: Potassium 99 mg PO DAILY 10/08/18 12/29/20 RX: Thiamine [Vitamin B-1] 100 mg PO DAILY 10/08/18 12/29/20 Vitamin B-Complex Drops 1 ml PO BID 10/08/18 12/29/20 RX: Venlafaxine HCl [Effexor XR] 75 mg PO DAILY 11/08/19 12/29/20 RX: Magnesium Oxide [Mag-Ox] 400 mg PO DAILY 12/06/19 12/29/20 RX: HYDROcodone/APAP 10-325MG 1 tab PO QID PRN 04/16/20 12/29/20 [[place] 10-325] RX: C,E,Zinc,Copper 11/Ikopz2m/Lut 1 cap PO DAILY 06/25/20 12/29/20 [Ocuvite Adult 50 Plus Softgel] RX: Cyanocobalamin (Vitamin B-12) 1,000 mcg PO DAILY 06/25/20 12/29/20 [Vitamin B-12] RX: Ondansetron HCl [Zofran] 4 mg PO Q6H PRN 06/25/20 12/29/20 RX: Spironolactone 50 mg PO DAILY 06/25/20 12/29/20 RX: Vitamin E 400 unit PO DAILY 06/25/20 12/29/20 RX: lisinopriL 40 mg PO DAILY 06/25/20 12/29/20 Cranberry 52601hr Cap 1 cap PO BID 11/26/20 12/29/20 RX: Brimonidine Tartrate [Alphagan 1 drop RIGHT EYE BID 11/26/20 12/29/20 P 0.2% Ophth Soln] RX: Butalb/APAP/Caff 50-325-40Mg 1 tab PO TID PRN 11/26/20 12/29/20 [Fioricet 50-325-40] RX: Cholestyramine (with Sugar) 4 gm PO DAILY 11/26/20 12/29/20 [Questran Packet] RX: Estrogens, Conjugated Cream 1 applicator VAGINAL DAILY 11/26/20 12/29/20 [Premarin Cream] RX: Glucagon [Gvoke Pfs 1-Pack 1 mg SQ ONCE PRN 11/26/20 12/29/20 Syringe] RX: Insulin Aspart [NovoLOG 11 units SQ AC-BRKFST 11/26/20 12/29/20 Flexpen] RX: Insulin Aspart [NovoLOG 20 units SQ AC-LUNCH 11/26/20 12/29/20 Flexpen] RX: Insulin Aspart [NovoLOG 26 unit SQ AC-SUPPER 11/26/20 12/29/20 Flexpen] RX: Insulin Aspart [NovoLOG See Protocol SQ AC-TID PRN 11/26/20 12/29/20 Flexpen] RX: Metoclopramide HCl [Reglan] 5 mg PO TID PRN 11/26/20 12/29/20 RX: Pantoprazole Sodium [Protonix] 40 mg PO DAILY 11/26/20 12/29/20 RX: Promethazine HCl [Phenergan 6.25 mg PO Q6H PRN 11/26/20 12/29/20 Syrup] RX: Cephalexin [Keflex] 250 mg PO HS 12/11/20 12/29/20 RX: Insulin Glargine,Hum.rec.anlog 30 unit SQ HS 12/11/20 12/29/20 [Lantus Solostar] RX: Fluconazole [Diflucan] 100 mg PO HS PRN 12/29/20 12/29/20 Previous Rx's Medication Instructions Recorded RX: Aspirin 81 mg PO DAILY #0 07/02/18 RX: Atorvastatin [Lipitor] 40 mg PO HS #30 tab 11/16/18 RX: Gabapentin [Neurontin] 100 mg PO TID #9 cap 03/24/20 RX: Hydrocortisone [Cortef] 5 mg PO HS #0 12/16/20 RX: Hydrocortisone [Cortef] 10 mg PO DAILY@1200 #0 12/16/20 RX: Hydrocortisone [Cortef] 15 mg PO DAILY #0 12/16/20 RX: Nystatin 1 applic TOPICAL DAILY PRN #15 gram 12/16/20 RX: Nystatin 100,000 Unit/gm Powd 1 applic TOPICAL TID #15 g 12/16/20 [Mycostatin Powder] RX: Dicyclomine [Bentyl] 10 mg PO QID PRN #20 cap 12/21/20 Allergies Allergy/AdvReac Type Severity Reaction Status Date / Time butorphanol tartrate Allergy BLISTERS Verified 12/29/20 15:40 [From Stadol] IN MOUTH ceftriaxone [From Rocephin] Allergy Unknown Verified 12/29/20 15:40 clarithromycin [From Biaxin] Allergy Rash/Hives Verified 12/29/20 15:40 clindamycin Allergy Unknown Verified 12/29/20 15:40 codeine Allergy Rash/Hives Verified 12/29/20 15:40 ergotamine tartrate Allergy Unknown Verified 12/29/20 15:40 [From Cafergot] erythromycin base Allergy RASH, GI Verified 12/29/20 15:40 [From E-Mycin] SYMPTOMS ketorolac tromethamine Allergy Rash/Hives Verified 12/29/20 15:40 [From Toradol] liraglutide [From Victoza] Allergy Rash/Hives Verified 12/29/20 15:40 morphine Allergy Rash/Hives Verified 12/29/20 15:40 Penicillins Allergy Rash/Hives Verified 12/29/20 15:40 pentazocine lactate Allergy SEVERE Verified 12/29/20 15:40 [From Talwin] BLISTERS IN MOUTH pregabalin [From Lyrica] Allergy Rash/Hives Verified 12/29/20 15:40 propoxyphene HCl Allergy Rash/Hives Verified 12/29/20 15:40 [From Darvon] Sulfa (Sulfonamide Allergy Rash/Hives Verified 12/29/20 15:40 Antibiotics) tramadol Allergy Unknown Verified 12/29/20 15:40 monosodium glutamate [MSG] AdvReac Nausea & Verified 12/29/20 15:40 Vomiting nalbuphine HCl [From Nubain] AdvReac Nausea & Verified 12/29/20 15:40 Vomiting Review of Systems ROS Statement: Those systems with pertinent positive or pertinent negative responses have been documented in the HPI. ROS Other: All systems not noted in ROS Statement are negative. Past Medical History Past Medical History: Diabetes Mellitus, Deep Vein Thrombosis (DVT), Fibromyalgia, Hyperlipidemia, Hypertension, Osteoarthritis (OA), Pneumonia, Renal Disease, Sleep Apnea/CPAP/BIPAP, Vascular Disorder Additional Past Medical History / Comment(s): Pt recently admitted to [facility] On 02/23/20 with complicated UTI/migraine/nausea and vomiting. 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, DVT R calf in 1976, cardiac murmur, occipital neuraligia, balance issues-has narrowing of vessels "in the back of my head", vertigo, varicosities, states rt shoulder torn rotator cuff History of Any Multi-Drug Resistant Organisms: ESBL, MRSA, VRE Date of last positivie culture/infection: 11/25/20 ESBL;12/06/19 VRE; 03/10/11 MRSA MDRO Source:: Urine ESBL; Urine-VRE: MRSA 4th Right TOE Past Surgical History: Appendectomy, Back Surgery, Bladder Surgery, Breast Surgery, Cholecystectomy, Heart Catheterization, Hysterectomy, Orthopedic Surgery, Tonsillectomy Additional Past Surgical History / Comment(s): Lumbar fusions, bladder suspension, occipital nerve blocks, 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, R wrist/elbow nerve repair, bone removed R shoulder, 4th toe R foot partial amputation, bilateral feet/bunionectomies, R knee arthroscopies, R orbit decompression with ethmoidectomy and eyelid lift, EGD, colonoscopies, cysto copies, lithotripsy/stents, bilateral breast reduction, bilateral cataract removals, parathyroid surgery - April 2019, pain clinic procedures Past Anesthesia/Blood Transfusion Reactions: No Reported Reaction Additional Past Anesthesia/Blood Transfusion Reaction / Comment(s): never recieved blood Past Psychological History: Depression Smoking Status: Never smoker Past Alcohol Use History: None Reported Past Drug Use History: None Reported - Past Family History Father Family Medical History: Coronary Artery Disease (CAD), CVA/TIA, Diabetes Mellitus, Myocardial Infarction (AL), Pneumonia Additional Family Medical History / Comment(s): Father at the age of 78yrs from AL and pneumonia. Mother Family Medical History: Cancer, Congestive Heart Failure (CHF) Additional Family Medical History / Comment(s): Mother had uterine cancer. She recently at the age of 96yrs old from [place]. General Exam Limitations: no limitations General appearance: alert, in no apparent distress Head exam: Present: atraumatic, normocephalic, normal inspection Eye exam: Present: normal appearance, PERRL, EOMI. Absent: scleral icterus, conjunctival injection, periorbital swelling ENT exam: Present: normal exam, mucous membranes moist Neck exam: Present: normal inspection, full ROM. Absent: tenderness, meningismus, lymphadenopathy Respiratory exam: Present: normal lung sounds bilaterally. Absent: respiratory distress, wheezes, rales, rhonchi, stridor Cardiovascular Exam: Present: regular rate, normal rhythm, normal heart sounds. Absent: systolic murmur, diastolic murmur, rubs, gallop, clicks GI/Abdominal exam: Present: soft, normal bowel sounds. Absent: distended, tenderness, guarding, rebound, rigid Neurological exam: Present: alert Course Vital Signs 12/29/20 12/29/20 13:56 16:20 Temperature 98.8 F Pulse Rate 64 66 Respiratory 18 18 Rate Blood Pressure 203/105 196/97 O2 Sat by Pulse 100 93 L Oximetry EKG Findings - EKG Comments: EKG Findings:: Normal sinus rhythm, ventricular rate 65, OH interval 144, QTc 474 Medical Decision Making - Medical Decision Making Vitals are stable. CBC and CMP are unremarkable. Patient does have hyperglycemia however is insulin-dependent. Patient is also hypertensive but reports she has not taken her medications in 2 days. She has been nauseous. Urinalysis does not show any evidence of infection at this time. Chest x-ray shows no acute cardiopulmonary process. X-ray of the lumbar spine shows no acute fractures. EKG was obtained given weakness and she does have significant changes compared to 2 weeks ago with diffuse T-wave inversions noted. Discussed case with Dr. Chau, at this point prefer to keep patient in hospital and have cardiology see. I did discuss this with Dr. Gonsales who agrees. - Lab Data Result diagrams: 12/29/20 14:40 12/29/20 14:40 Lab Results 12/29/20 12/29/20 12/29/20 Range/Units 14:40 14:40 14:40 WBC 8.3 (3.8-10.6) k/uL RBC 5.12 (3.80-5.40) m/uL Hgb 15.1 (11.4-16.0) gm/dL Hct 46.1 H (34.0-46.0) % MCV 89.9 (80.0-100.0) fL MCH 29.5 (25.0-35.0) pg MCHC 32.8 (31.0-37.0) g/dL RDW 14.0 (11.5-15.5) % Plt Count 224 (150-450) k/uL MPV 7.3 Neutrophils % 67 % Lymphocytes % 25 % Monocytes % 5 % Eosinophils % 2 % Basophils % 1 % Neutrophils # 5.5 (1.3-7.7) k/uL Lymphocytes # 2.0 (1.0-4.8) k/uL Monocytes # 0.4 (0-1.0) k/uL Eosinophils # 0.2 (0-0.7) k/uL Basophils # 0.1 (0-0.2) k/uL Sodium 135 L (137-145) mmol/L Potassium 4.5 (3.5-5.1) mmol/L Chloride 93 L (98-107) mmol/L Carbon Dioxide 31 H (22-30) mmol/L Anion Gap 11 mmol/L BUN 12 (7-17) mg/dL Creatinine 0.45 L (0.52-1.04) mg/dL Est GFR (CKD-EPI)AfAm >90 (>60 ml/min/1.73 sqM) Est GFR (CKD-EPI)NonAf >90 (>60 ml/min/1.73 sqM) Glucose 244 H (74-99) mg/dL Plasma Lactic Acid Sudhir (0.7-2.0) mmol/L Calcium 9.5 (8.4-10.2) mg/dL Magnesium 1.6 (1.6-2.3) mg/dL Total Bilirubin 1.2 (0.2-1.3) mg/dL AST 47 H (14-36) U/L ALT 21 (4-34) U/L Alkaline Phosphatase 78 (38-126) U/L Troponin I (0.000-0.034) ng/mL Total Protein 7.2 (6.3-8.2) g/dL Albumin 4.5 (3.5-5.0) g/dL Urine Color Light Yellow Urine Appearance Clear (Clear) Urine pH 7.5 (5.0-8.0) Ur Specific [place] 1.010 (1.001-1.035) Urine Protein Negative (Negative) Urine Glucose (UA) 3+ H (Negative) Urine Ketones 1+ H (Negative) Urine Blood Negative (Negative) Urine Nitrite Negative (Negative) Urine Bilirubin Negative (Negative) Urine Urobilinogen <2.0 (<2.0) mg/dL Ur Leukocyte Esterase Trace H (Negative) Urine RBC 1 (0-5) /hpf Urine WBC 6 H (0-5) /hpf Ur Squamous Epith Cells <1 (0-4) /hpf Urine Mucus Rare H (None) /hpf 12/29/20 12/29/20 Range/Units 14:40 14:40 WBC (3.8-10.6) k/uL RBC (3.80-5.40) m/uL Hgb (11.4-16.0) gm/dL Hct (34.0-46.0) % MCV (80.0-100.0) fL MCH (25.0-35.0) pg MCHC (31.0-37.0) g/dL RDW (11.5-15.5) % Plt Count (150-450) k/uL MPV Neutrophils % % Lymphocytes % % Monocytes % % Eosinophils % % Basophils % % Neutrophils # (1.3-7.7) k/uL Lymphocytes # (1.0-4.8) k/uL Monocytes # (0-1.0) k/uL Eosinophils # (0-0.7) k/uL Basophils # (0-0.2) k/uL Sodium (137-145) mmol/L Potassium (3.5-5.1) mmol/L Chloride (98-107) mmol/L Carbon Dioxide (22-30) mmol/L Anion Gap mmol/L BUN (7-17) mg/dL Creatinine (0.52-1.04) mg/dL Est GFR (CKD-EPI)AfAm (>60 ml/min/1.73 sqM) Est GFR (CKD-EPI)NonAf (>60 ml/min/1.73 sqM) Glucose (74-99) mg/dL Plasma Lactic Acid Sudhir 1.8 (0.7-2.0) mmol/L Calcium (8.4-10.2) mg/dL Magnesium (1.6-2.3) mg/dL Total Bilirubin (0.2-1.3) mg/dL AST (14-36) U/L ALT (4-34) U/L Alkaline Phosphatase (38-126) U/L Troponin I <0.012 (0.000-0.034) ng/mL Total Protein (6.3-8.2) g/dL Albumin (3.5-5.0) g/dL Urine Color Urine Appearance (Clear) Urine pH (5.0-8.0) Ur Specific [place] (1.001-1.035) Urine Protein (Negative) Urine Glucose (UA) (Negative) Urine Ketones (Negative) Urine Blood (Negative) Urine Nitrite (Negative) Urine Bilirubin (Negative) Urine Urobilinogen (<2.0) mg/dL Ur Leukocyte Esterase (Negative) Urine RBC (0-5) /hpf Urine WBC (0-5) /hpf Ur Squamous Epith Cells (0-4) /hpf Urine Mucus (None) /hpf Disposition Clinical Impression: Weakness, Adrenal insufficiency, Acute electrocardiogram changes, T wave inversion in EKG Disposition: ADMITTED IP TO THIS HOSP Is patient prescribed a controlled substance at d/c from ED?: No Referrals: Andrew Gonsales MD [Primary Care Provider] - 1-2 days Time of Disposition: 16:29
[2020-12-29 15:06] LABS: Basophils # (A) 0.1 k/uL (0-0.2); Basophils % (A) 1 %; Eosinophils # (A) 0.2 k/uL (0-0.7); Eosinophils % (A) 2 %; HCT 46.1 % (34.0-46.0); HGB 15.1 gm/dL (11.4-16.0); Lymphocytes % (A) 25 %; MCH 29.5 pg (25.0-35.0); MCHC 32.8 g/dL (31.0-37.0); MCV 89.9 fL (80.0-100.0); Mean Platelet Volume 7.3; Monocytes # (A) 0.4 k/uL (0-1.0); Monocytes % (A) 5 %; Neutrophils # (A) 5.5 k/uL (1.3-7.7); Neutrophils % (A) 67 %; Platelet Count 224 k/uL (150-450); RBC 5.12 m/uL (3.80-5.40); WBC 8.3 k/uL (3.8-10.6)
[2020-12-29 15:13] LABS: Appearance,Urine Clear (Clear); Bilirubin,Urine Negative (Negative); Blood,Urine Negative (Negative); Color,Urine Light Yellow; Glucose,Urine (UA) 3+ (Negative); Ketones,Urine 1+ (Negative); Leukocyte Esterase,Urine Trace (Negative); Mucus,Urine Rare /hpf; Nitrite,Urine Negative (Negative); PH, Urine 7.5 (5.0-8.0); Protein,Urine Negative (Negative); RBC,Urine 1 /hpf (0-5); Squamous Epithelial Cell,Urine <1 /hpf (0-4); Urobilinogen,Urine <2.0 mg/dL (<2.0); WBC,Urine 6 /hpf (0-5)
[2020-12-29 15:15] LABS: ALT 21 U/L (4-34); AST 47 U/L (14-36); African American GFR (CKD) >90 (>60 ml/min/1.73 sqM); Albumin 4.5 g/dL (3.5-5.0); Alkaline Phosphatase 78 U/L (38-126); Anion Gap 11 mmol/L; Blood Urea Nitrogen 12 mg/dL (7-17); Calcium 9.5 mg/dL (8.4-10.2); Carbon Dioxide 31 mmol/L (22-30); Chloride 93 mmol/L (98-107); Glucose 244 mg/dL (74-99); Magnesium 1.6 mg/dL (1.6-2.3); Non-African American GFR(CKD) >90 (>60 ml/min/1.73 sqM); Sodium 135 mmol/L (137-145); Total Bilirubin 1.2 mg/dL (0.2-1.3); Total Protein 7.2 g/dL (6.3-8.2)
[2020-12-29 15:27] LABS: Potassium 4.5 mmol/L (3.5-5.1)
--- NOTE | 2020-12-29 15:40 | XR ---
EXAMINATION TYPE: XR chest 2V DATE OF EXAM: 12/29/2020 CLINICAL HISTORY: Weakness. TECHNIQUE: Frontal and lateral view of the chest. COMPARISON: 12/11/2020 FINDINGS: Low lung volumes accentuates the cardiomediastinal silhouette. The patient is rotated to th e right which also accentuates the mediastinal silhouette. Likely mild cardiomegaly. Pulmonary vascul ature is normal. There is no focal air space opacity. No pleural effusion. No pneumothorax seen. Red emonstrated compression deformities of multiple thoracic vertebral bodies. IMPRESSION: No acute cardiopulmonary process.
--- NOTE | 2020-12-29 15:59 | XR ---
Lumbar spine HISTORY: Trauma and pain 3 views the lumbar spine correlated prior exam 11/27/2019 The posterior fusion changes are again noted at L3-S1. Alignment is stable. Degenerative disc changes are present at L2-3 with vacuum phenomenon, hypertrophic spondylosis. Intervertebral spacing materia l present L3-4. Bone mineralization is reduced. Lumbar vertebral bodies show preserved height. Loss o f disc height is present at intervertebral levels. There are dense atherosclerotic vascular calcifica tions noted incidentally within the aorta iliac distribution. IMPRESSION: Osteopenia, no acute fracture or subluxation. Postop and degenerative disc changes.
[2020-12-29] MEDS ORDERED: HYDROcodone/APAP 10-325MG 1 EACH TAB PO ONE (16:21)
[2020-12-29] MEDS ORDERED: ASPIRIN 81 MG PO STA (16:30)
[2020-12-29] MEDS ORDERED: BUTALB/APAP/CAFF 50-325-40MG TAB PO PRN (16:32)
[2020-12-29] MEDS ORDERED: PROMETHAZINE HCL 6.25 MG/5 ML CUP PO PRN (16:32)
[2020-12-29] MEDS ORDERED: MELATONIN 5 MG TABLET PO PRN (16:32)
[2020-12-29] MEDS ORDERED: MECLIZINE 25 MG TAB PO PRN (16:32)
[2020-12-29] MEDS ORDERED: METOCLOPRAMIDE 5 MG TAB PO PRN (16:32)
[2020-12-29] MEDS ORDERED: DICYCLOMINE 10 MG CAP PO PRN (16:32)
[2020-12-29] MEDS ORDERED: FLUCONAZOLE 100 MG TAB PO PRN (16:32)
[2020-12-29] MEDS ORDERED: ONDANSETRON 4 MG TAB PO PRN (16:32)
[2020-12-29] MEDS ORDERED: NYSTATIN 100,000UNIT/GM CREAM 30 GM TUBE TOPICAL PRN (16:32)
[2020-12-29] MEDS: INSULIN ASPART (NovoLOG) 100 UNIT/ML VIAL SQ SCH ×2 (18:29→22:00)
[2020-12-29 20:16] LABS: Glucose,Whole Blood 304 mg/dL (75-99)
[2020-12-29] MEDS ORDERED: METOCLOPRAMIDE 5 MG/ML 2 ML VIAL IVP SCH (20:49)
[2020-12-29] MEDS ORDERED: METOPROLOL SUCCINATE (ER) 50 MG TAB.ER.24H PO SCH (21:00)
[2020-12-29] MEDS ORDERED: CEPHALEXIN 250 MG CAP PO SCH (21:00)
[2020-12-29] MEDS ORDERED: VITAMIN B COMPLEX PO SCH (21:00)
[2020-12-29] MEDS ORDERED: HYDROCORTISONE 10 MG TAB PO SCH (21:00)
[2020-12-29] MEDS ORDERED: ATORVASTATIN 40 MG TAB PO SCH (21:00)
[2020-12-29] MEDS ORDERED: CRANBERRY 15000 MG PO SCH (21:00)
[2020-12-29] MEDS ORDERED: METOCLOPRAMIDE 5 MG/ML 2 ML VIAL IVP PRN (21:05)
[2020-12-29] MEDS: ONDANSETRON 4 MG/2 ML VIAL IVP PRN (21:08)
[2020-12-29] MEDS ORDERED: MAGNESIUM SULFATE-D5W PMX 1 GM in DEXTROSE/WATER 1 100ML.BAG IVPB ONE (23:01)
[2020-12-29] MEDS: GABAPENTIN 100 MG CAP PO SCH (23:12)
[2020-12-29] MEDS: NYSTATIN 100,000 UNIT/GM POWD 15 GM TOPICAL SCH (23:13)
[2020-12-29] MEDS: BRIMONIDINE TARTRATE 0.2% DROPS 5 ML BTL RIGHT EYE SCH (23:13)
[2020-12-30] MEDS: HYDROcodone/APAP 10-325MG 1 EACH TAB PO PRN ×3 (01:10→16:15)
[2020-12-30] MEDS ORDERED: METOCLOPRAMIDE 5 MG/ML 2 ML VIAL IVP PRN (01:46)
[2020-12-30] MEDS: ONDANSETRON 4 MG/2 ML VIAL IVP PRN ×2 (05:14→16:16)
[2020-12-30 05:59] LABS: Glucose,Whole Blood 180 mg/dL (75-99)
[2020-12-30] MEDS: INSULIN ASPART (NovoLOG) 100 UNIT/ML VIAL SQ SCH ×2 (07:01→12:24)
[2020-12-30] MEDS ORDERED: PANTOPRAZOLE 40 MG TABLET PO SCH (07:30)
[2020-12-30 07:56] LABS: Magnesium 1.8 mg/dL (1.6-2.3)
[2020-12-30] MEDS ORDERED: VENLAFAXINE HCL ER 75 MG CAP PO SCH (09:00)
[2020-12-30] MEDS ORDERED: VIT A,C & E-LUTEIN-MINERALS 1 EACH TAB PO SCH (09:00)
[2020-12-30] MEDS ORDERED: CHOLECALCIFEROL 25 MCG (1000 IU) TABLET PO SCH (09:00)
[2020-12-30] MEDS ORDERED: ASPIRIN 325 MG TAB PO SCH (09:00)
[2020-12-30] MEDS ORDERED: FERROUS SULFATE 325 MG TAB PO SCH (09:00)
[2020-12-30] MEDS ORDERED: MAGNESIUM OXIDE 400 MG TAB PO SCH (09:00)
[2020-12-30] MEDS ORDERED: NON FORMULARY DRUG (Potassium [Potassium] 99 MG Tablet) PO SCH (09:00)
[2020-12-30] MEDS ORDERED: VITAMIN E (DL,TOCOPHERYL ACET) 400 UNIT (180 MG) CAP PO SCH (09:00)
[2020-12-30] MEDS ORDERED: MULTIVITAMINS, THERA LIQUID 237 ML BOTTLE PO SCH (09:00)
[2020-12-30] MEDS ORDERED: lisinopriL 20 MG TAB PO SCH (09:00)
[2020-12-30] MEDS ORDERED: SPIRONOLACTONE 25 MG TAB PO SCH (09:00)
[2020-12-30] MEDS ORDERED: CHOLESTYRAMINE (WITH SUGAR) 4 GM PACKET PO SCH (09:00)
[2020-12-30] MEDS ORDERED: HYDROCORTISONE 10 MG TAB PO SCH ×2 (09:00→12:00)
[2020-12-30] MEDS ORDERED: NON FORMULARY DRUG (Folic Acid [Folic Acid] 0.4 MG Tablet) PO SCH (09:00)
[2020-12-30] MEDS ORDERED: THIAMINE 100 MG TAB PO SCH (09:00)
[2020-12-30] MEDS ORDERED: CYANOCOBALAMIN 500 MCG TAB PO SCH (09:00)
[2020-12-30] MEDS ORDERED: ASPIRIN 81 MG PO SCH (09:00)
[2020-12-30] MEDS ORDERED: ESTROGENS, CONJUGATED 0.625 MG/GM VAGINAL CREAM 42.5 GM TUBE VAGINAL SCH (09:00)
[2020-12-30] MEDS ORDERED: HYDROmorphone 0.5 MG/0.5 ML SYRINGE IVP STA (09:47)
--- NOTE | 2020-12-30 10:14 | P.CRDCN ---
History of Present Illness Consult date: 12/30/20 History of present illness: HISTORY OF PRESENT ILLNESS: This is a 70-year-old female with a past medical history significant for adrenal insufficiency, hypertension, hyperlipidemia, diabetes mellitus, and coronary artery disease. Patient follows in the office with Dr. Rosenberg. We have been asked to see the patient in consultation for abnormal EKG. Patient examined at the bedside. Patient states she has been having nausea and vomiting over the past 2 days. She states she has not taken her Cortef which in turn "shuts down my whole body". She reports extreme weakness which prompted her to come to the ER. Patients nausea and vomiting have improved this morning. The patient denies any chest pain or pressure. She denies any shortness of breath. EKG reveals sinus mechanism with diffuse T-wave inversions, new from previous EKG Chest xray no acute cardiopulmonary process Laboratory data: WBC 8.3. Hemoglobin 15.1. Platelet count 224. Sodium 135. Potassium 4.5. BUN 12. Creatinine 0.45. Magnesium 1.6. Lactic acid 1.8. Troponin negative 3. Current home cardiac medications include lisinopril 40 mg daily, spironolactone 50 mg daily, metoprolol succinate 50 mg at night, Lipitor 40 mg daily, aspirin 81 mg daily Most recent echocardiogram obtained in January 2020 revealed ejection fraction 60-65%, moderate concentric left ventricular hypertrophy, mild aortic regurgitation, mild aortic stenosis, mild mitral regurgitation, mild tricuspid regurgitation and mild pulmonary hypertension. Patient underwent a Lexiscan stress test in 2018 which was negative for ischemia Cardiac catheterization history: October 2018 revealing intermediate disease involving the proximal LAD with 60% lesion with aneurysmal formation REVIEW OF SYSTEMS: At the time of my exam: CONSTITUTIONAL: Denies fever or chills. Reports generalized weakness. HEENT: Denies blurred vision, vision changes, or eye pain. Denies hemoptysis CARDIOVASCULAR: Denies chest pain. Denies orthopnea. Denies PND. Denies palpitations RESPIRATORY: Denies shortness of breath. GASTROINTESTINAL: Denies abdominal pain. Reports nausea. Denies vomiting. HEMATOLOGIC: Denies bleeding disorders. GENITOURINARY: Denies any blood in urine. SKIN: Denies pruitis. Denies rash. PHYSICAL EXAM: VITAL SIGNS: Reviewed. GENERAL: Well-developed in no acute distress. HEENT: Head is normocephalic. Pupils are equal, round. Sclerae anicteric. Mucous membranes of the mouth are moist. Neck supple. No JVD or thyromegaly LUNGS: Respirations even and unlabored. Lungs essentially clear to auscultation bilaterally. HEART: Regular rate and rhythm. S1 and S2 heard. ABDOMEN: Soft. Nondistended. Nontender. EXTREMITIES: Normal range of motion. No clubbing or cyanosis. Peripheral pulses intact. No lower extremity edema NEUROLOGIC: Awake and alert. Oriented x 3. ASSESSMENT: Generalized weakness and fatigue Adrenal insufficiency, on home Cortef, hasn't taken medications in 2 days EKG changes, revealing diffuse T-wave inversions, secondary to uncontrolled hypertension Hypertensive urgency Hyperlipidemia Diabetes mellitus Coronary artery disease, previous catheterization in 2018 revealing 60% lesion of proximal LAD with aneurysmal formation PLAN: Obtain 2-D echo to assess cardiac structure and function Resume home cardiac medications No further inpatient recommendations from a cardiac standpoint Patient may be discharged home this afternoon from a cardiac standpoint She is to follow up outpatient Nurse practitioner note has been reviewed by physician. Signing provider agrees with the documented findings, assessment, and plan of care. 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, DVT R calf in 1976, cardiac murmur, occipital neuraligia, balance issues-has narrowing of vessels "in the back of my head", vertigo, varicosities, states rt shoulder torn rotator cuff History of Any Multi-Drug Resistant Organisms: ESBL, MRSA, VRE Date of last positivie culture/infection: 11/25/20 ESBL;12/06/19 VRE; 03/10/11 MRSA MDRO Source:: Urine ESBL; Urine-VRE: MRSA 4th Right TOE Past Surgical History: Appendectomy, Back Surgery, Bladder Surgery, Breast Surgery, Cholecystectomy, Heart Catheterization, Hysterectomy, Orthopedic Surgery, Tonsillectomy Additional Past Surgical History / Comment(s): Lumbar fusions, bladder suspension, occipital nerve blocks, 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, R wrist/elbow nerve repair, bone removed R shoulder, 4th toe R foot partial amputation, bilateral feet/bunionectomies, R knee arthroscopies, R orbit decompression with ethmoidectomy and eyelid lift, EGD, colonoscopies, cystocopies, lithotripsy/stents, bilateral breast reduction, bilateral cataract removals, parathyroid surgery - April 2019, pain clinic procedures Past Anesthesia/Blood Transfusion Reactions: No Reported Reaction Additional Past Anesthesia/Blood Transfusion Reaction / Comment(s): never recieved blood Past Psychological History: Depression Additional Psychological History / Comment(s): Pt resides with her spouse. She uses a walker. She normally drives. She has a nebulizer, cpap, bsc, shower chair, bp machine, dexcom monitor system for her bs. She has [facility] home care. Smoking Status: Never smoker Past Alcohol Use History: None Reported Additional Past Alcohol Use History / Comment(s): no alcohol Past Drug Use History: None Reported - Past Family History Father Family Medical History: Coronary Artery Disease (CAD), CVA/TIA, Diabetes Mellitus, Myocardial Infarction (MS), Pneumonia Additional Family Medical History / Comment(s): Father at the age of 78yrs from MS and pneumonia. Mother Family Medical History: Cancer, Congestive Heart Failure (CHF) Additional Family Medical History / Comment(s): Mother had uterine cancer. She recently at the age of 96yrs old from [employer]. Medications and Allergies Home Medications Medication Instructions Recorded Confirmed Type Cholecalciferol [Vitamin D3 (25 75 mcg PO DAILY 12/01/14 12/29/20 History Mcg = 1000 Iu)] Metoprolol Succinate (ER) [Toprol 50 mg PO HS 07/06/17 12/29/20 History XL] Meclizine [Antivert] 25 mg PO QID PRN 11/26/17 12/29/20 History Aspirin 81 mg PO DAILY #0 07/02/18 12/29/20 Rx Ferrous Sulfate [Iron (65 MG 325 mg PO DAILY 10/08/18 12/29/20 History Elemental)] Folic Acid 0.4 mg PO DAILY 10/08/18 12/29/20 History L.acidoph,Paracasei, B.lactis 2 cap PO BID 10/08/18 12/29/20 History [Probiotic] Melatonin 5 mg PO HS PRN 10/08/18 12/29/20 History Multivitamins, Thera Liquid 30 ml PO DAILY 10/08/18 12/29/20 History [Theragran Liquid (formulary)] Potassium 99 mg PO DAILY 10/08/18 12/29/20 History Thiamine [Vitamin B-1] 100 mg PO DAILY 10/08/18 12/29/20 History Vitamin B-Complex Drops 1 ml PO BID 10/08/18 12/29/20 History Atorvastatin [Lipitor] 40 mg PO HS #30 tab 11/16/18 12/29/20 Rx Venlafaxine HCl [Effexor XR] 75 mg PO DAILY 11/08/19 12/29/20 History Magnesium Oxide [Mag-Ox] 400 mg PO DAILY 12/06/19 12/29/20 History Gabapentin [Neurontin] 100 mg PO TID #9 cap 03/24/20 12/29/20 Rx HYDROcodone/APAP 10-325MG [[place] 1 tab PO QID PRN 04/16/20 12/29/20 History 10-325] C,E,Zinc,Copper 11/Exvgx3g/Lut 1 cap PO DAILY 06/25/20 12/29/20 History [Ocuvite Adult 50 Plus Softgel] Cyanocobalamin (Vitamin B-12) 1,000 mcg PO DAILY 06/25/20 12/29/20 History [Vitamin B-12] Ondansetron HCl [Zofran] 4 mg PO Q6H PRN 06/25/20 12/29/20 History Spironolactone 50 mg PO DAILY 06/25/20 12/29/20 History Vitamin E 400 unit PO DAILY 06/25/20 12/29/20 History lisinopriL 40 mg PO DAILY 06/25/20 12/29/20 History Brimonidine Tartrate [Alphagan P 1 drop RIGHT EYE BID 11/26/20 12/29/20 History 0.2% Ophth Soln] Butalb/APAP/Caff 50-325-40Mg 1 tab PO TID PRN 11/26/20 12/29/20 History [Fioricet 50-325-40] Cholestyramine (with Sugar) 4 gm PO DAILY 11/26/20 12/29/20 History [Questran Packet] Cranberry 16040of Cap 1 cap PO BID 11/26/20 12/29/20 History Estrogens, Conjugated Cream 1 applicator VAGINAL DAILY 11/26/20 12/29/20 History [Premarin Cream] Glucagon [Gvoke Pfs 1-Pack Syringe] 1 mg SQ ONCE PRN 11/26/20 12/29/20 History Insulin Aspart [NovoLOG Flexpen] 11 units SQ AC-BRKFST 11/26/20 12/29/20 History Insulin Aspart [NovoLOG Flexpen] 20 units SQ AC-LUNCH 11/26/20 12/29/20 History Insulin Aspart [NovoLOG Flexpen] 26 unit SQ AC-SUPPER 11/26/20 12/29/20 History Insulin Aspart [NovoLOG Flexpen] See Protocol SQ AC-TID PRN 11/26/20 12/29/20 History Metoclopramide HCl [Reglan] 5 mg PO TID PRN 11/26/20 12/29/20 History Pantoprazole Sodium [Protonix] 40 mg PO DAILY 11/26/20 12/29/20 History Promethazine HCl [Phenergan Syrup] 6.25 mg PO Q6H PRN 11/26/20 12/29/20 History Cephalexin [Keflex] 250 mg PO HS 12/11/20 12/29/20 History Insulin Glargine,Hum.rec.anlog 30 unit SQ HS 12/11/20 12/29/20 History [Lantus Solostar] Hydrocortisone [Cortef] 5 mg PO HS #0 12/16/20 12/29/20 Rx Hydrocortisone [Cortef] 10 mg PO DAILY@1200 #0 12/16/20 12/29/20 Rx Hydrocortisone [Cortef] 15 mg PO DAILY #0 12/16/20 12/29/20 Rx Nystatin 1 applic TOPICAL DAILY PRN #15 gram 12/16/20 12/29/20 Rx Nystatin 100,000 Unit/gm Powd 1 applic TOPICAL TID #15 g 12/16/20 12/29/20 Rx [Mycostatin Powder] Dicyclomine [Bentyl] 10 mg PO QID PRN #20 cap 12/21/20 12/29/20 Rx Fluconazole [Diflucan] 100 mg PO HS PRN 12/29/20 12/29/20 History Allergies Allergy/AdvReac Type Severity Reaction Status Date / Time butorphanol tartrate Allergy BLISTERS Verified 12/29/20 15:40 [From Stadol] IN MOUTH ceftriaxone [From Rocephin] Allergy Unknown Verified 12/29/20 15:40 clarithromycin [From Biaxin] Allergy Rash/Hives Verified 12/29/20 15:40 clindamycin Allergy Unknown Verified 12/29/20 15:40 codeine Allergy Rash/Hives Verified 12/29/20 15:40 ergotamine tartrate Allergy Unknown Verified 12/29/20 15:40 [From Cafergot] erythromycin base Allergy RASH, GI Verified 12/29/20 15:40 [From E-Mycin] SYMPTOMS ketorolac tromethamine Allergy Rash/Hives Verified 12/29/20 15:40 [From Toradol] liraglutide [From Victoza] Allergy Rash/Hives Verified 12/29/20 15:40 morphine Allergy Rash/Hives Verified 12/29/20 15:40 Penicillins Allergy Rash/Hives Verified 12/29/20 15:40 pentazocine lactate Allergy SEVERE Verified 12/29/20 15:40 [From Talwin] BLISTERS IN MOUTH pregabalin [From Lyrica] Allergy Rash/Hives Verified 12/29/20 15:40 propoxyphene HCl Allergy Rash/Hives Verified 12/29/20 15:40 [From Darvon] Sulfa (Sulfonamide Allergy Rash/Hives Verified 12/29/20 15:40 Antibiotics) tramadol Allergy Unknown Verified 12/29/20 15:40 monosodium glutamate [MSG] AdvReac Nausea & Verified 12/29/20 15:40 Vomiting nalbuphine HCl [From Nubain] AdvReac Nausea & Verified 12/29/20 15:40 Vomiting Physical Exam Vitals: Vital Signs Temp Pulse Pulse Resp BP BP BP 12/30/20 04:00 98.5 F 76 17 158/82 12/30/20 00:00 168/81 12/29/20 23:00 98.4 F 86 18 175/96 12/29/20 20:10 98.4 F 77 18 200/86 175/96 12/29/20 18:46 70 16 183/87 12/29/20 16:20 66 18 196/97 12/29/20 13:56 98.8 F 64 18 203/105 Pulse Ox 12/30/20 04:00 94 L 12/30/20 00:00 12/29/20 23:00 97 12/29/20 20:10 94 L 12/29/20 18:46 99 12/29/20 16:20 93 L 12/29/20 13:56 100 Intake and Output 12/29/20 12/30/20 12/30/20 22:59 06:59 14:59 Intake Total 0 Balance 0 Intake: Oral 0 Other: Voiding Method Bedside Commode Bedside Commode # Voids 1 # Bowel Movements 1 Weight 69.853 kg 70.5 kg Results 12/29/20 14:40 12/29/20 14:40 Cardiac Enzymes 12/29/20 12/29/20 12/29/20 Range/Units 14:40 14:40 18:11 AST 47 H (14-36) U/L Troponin I <0.012 <0.012 (0.000-0.034) ng/mL 12/29/20 Range/Units 20:43 AST (14-36) U/L Troponin I 0.013 (0.000-0.034) ng/mL CBC 12/29/20 Range/Units 14:40 WBC 8.3 (3.8-10.6) k/uL RBC 5.12 (3.80-5.40) m/uL Hgb 15.1 (11.4-16.0) gm/dL Hct 46.1 H (34.0-46.0) % Plt Count 224 (150-450) k/uL Comprehensive Metabolic Panel 12/29/20 Range/Units 14:40 Sodium 135 L (137-145) mmol/L Potassium 4.5 (3.5-5.1) mmol/L Chloride 93 L (98-107) mmol/L Carbon Dioxide 31 H (22-30) mmol/L BUN 12 (7-17) mg/dL Creatinine 0.45 L (0.52-1.04) mg/dL Glucose 244 H (74-99) mg/dL Calcium 9.5 (8.4-10.2) mg/dL AST 47 H (14-36) U/L ALT 21 (4-34) U/L Alkaline Phosphatase 78 (38-126) U/L Total Protein 7.2 (6.3-8.2) g/dL Albumin 4.5 (3.5-5.0) g/dL Current Medications Generic Name Dose Route Start Last Admin Trade Name Freq PRN Reason Stop Dose Admin Acetaminophen/Butalbital/Caffeine 1 each 12/29/20 16:32 Butalb/Apap/Caff 50-325-40mg Tab PO TID PRN Migraine Headache Hydrocodone Bitart/Acetaminophen 1 each 12/29/20 16:32 12/30/20 07:01 Hydrocodone/Apap 10-325mg 1 Each Tab PO 1 each QID PRN Administration Pain Aspirin 81 mg 12/30/20 09:00 Aspirin 81 Mg PO DAILY [facility] Atorvastatin Calcium 40 mg 12/29/20 21:00 12/29/20 23:12 Atorvastatin 40 Mg Tab PO Not Given HS [facility] Brimonidine Tartrate 1 drops 12/29/20 21:00 12/29/20 23:13 Brimonidine Tartrate 0.2% Drops 5 Ml Btl RIGHT EYE Not Given BID [facility] Cephalexin 250 mg 12/29/20 21:00 12/29/20 23:12 Cephalexin 250 Mg Cap PO Not Given HS [facility] Cholecalciferol 75 mcg 12/30/20 09:00 Cholecalciferol 25 Mcg (1000 Iu) Tablet PO DAILY [facility] Cholestyramine Resin 4 gm 12/30/20 09:00 Cholestyramine (With Sugar) 4 Gm Packet PO DAILY [facility] Cyanocobalamin 1,000 mcg 12/30/20 09:00 Cyanocobalamin 500 Mcg Tab PO DAILY [facility] Dicyclomine HCl 10 mg 12/29/20 16:32 Dicyclomine 10 Mg Cap PO QID PRN Dyspepsia Estrogens Conjugated 1 applic 12/30/20 09:00 Estrogens, Conjugated 0.625 Mg/Gm Vaginal Cream 42.5 Gm Tube VAGINAL DAILY [facility] Ferrous Sulfate 325 mg 12/30/20 09:00 Ferrous Sulfate 325 Mg Tab PO DAILY [facility] Fluconazole 100 mg 12/29/20 16:32 Fluconazole 100 Mg Tab PO HS PRN yeast infection Gabapentin 100 mg 12/29/20 22:00 12/29/20 23:12 Gabapentin 100 Mg Cap PO Not Given TID [facility] Hydrocortisone 5 mg 12/29/20 21:00 12/29/20 22:19 Hydrocortisone 10 Mg Tab PO 5 mg HS [facility] Administration Hydrocortisone 10 mg 12/30/20 12:00 Hydrocortisone 10 Mg Tab PO DAILY@1200 [facility] Hydrocortisone 15 mg 12/30/20 09:00 Hydrocortisone 10 Mg Tab PO DAILY [facility] Insulin Aspart 0 unit 12/29/20 17:30 12/30/20 07:01 Insulin Aspart (Novolog) 100 Unit/Ml Vial SQ 2 unit ACHS [facility] Administration Protocol Iron/Minerals/Multivitamins 15 ml 12/30/20 09:00 Multivitamins, Thera Liquid 237 Ml Bottle PO DAILY [facility] Lisinopril 40 mg 12/30/20 09:00 Lisinopril 20 Mg Tab PO DAILY [facility] Magnesium Oxide 400 mg 12/30/20 09:00 Magnesium Oxide 400 Mg Tab PO DAILY [facility] Meclizine HCl 25 mg 12/29/20 16:32 Meclizine 25 Mg Tab PO QID PRN Vertigo Melatonin 5 mg 12/29/20 16:32 Melatonin 5 Mg Tablet PO HS PRN Insomnia Metoclopramide HCl 5 mg 12/30/20 01:46 Metoclopramide 5 Mg/Ml 2 Ml Vial IVP Q6HR PRN Nausea Metoprolol Succinate 50 mg 12/29/20 21:00 12/29/20 22:18 Metoprolol Succinate (Er) 50 Mg Tab.Er.24h PO 50 mg HS [facility] Administration Multivitamins/Minerals 1 each 12/30/20 09:00 Vit A,C & C-Frreky-Fleqlnto 1 Each Tab PO DAILY [facility] Nystatin 1 applic 12/29/20 16:32 Nystatin 100,000unit/Gm Cream 30 Gm Tube TOPICAL DAILY PRN Skin Irritation Protocol Nystatin 1 applic 12/29/20 22:00 12/29/20 23:13 Nystatin 100,000 Unit/Gm Powd 15 Gm TOPICAL Not Given TID [facility] Protocol Ondansetron HCl 4 mg 12/29/20 20:47 12/30/20 05:14 Ondansetron 4 Mg/2 Ml Vial IVP 4 mg Q8HR PRN Administration Nausea And Vomiting Pantoprazole Sodium 40 mg 12/30/20 07:30 12/30/20 07:01 Pantoprazole 40 Mg Tablet PO 40 mg DAILY@0730 [facility] Administration Promethazine HCl 6.25 mg 12/29/20 16:32 Promethazine Hcl 6.25 Mg/5 Ml Cup PO Q6H PRN Nausea Spironolactone 50 mg 12/30/20 09:00 Spironolactone 25 Mg Tab PO DAILY [facility] Thiamine HCl 100 mg 12/30/20 09:00 Thiamine 100 Mg Tab PO DAILY [facility] Venlafaxine HCl 75 mg 12/30/20 09:00 Venlafaxine Hcl Er 75 Mg Cap PO DAILY [facility] Vitamin E 400 unit 12/30/20 09:00 Vitamin E (Dl,Tocopheryl Acet) 400 Unit (180 Mg) Cap PO DAILY [facility] Intake and Output 12/29/20 12/30/20 12/30/20 22:59 06:59 14:59 Intake Total 0 Balance 0 Intake: Oral 0 Other: Voiding Method Bedside Commode Bedside Commode # Voids 1 # Bowel Movements 1 Weight 69.853 kg 70.5 kg 12/29/20 14:40 12/29/20 14:40
[2020-12-30] MEDS: BRIMONIDINE TARTRATE 0.2% DROPS 5 ML BTL RIGHT EYE SCH (10:21)
[2020-12-30] MEDS: NYSTATIN 100,000 UNIT/GM POWD 15 GM TOPICAL SCH (10:22)
[2020-12-30] MEDS: GABAPENTIN 100 MG CAP PO SCH ×2 (10:31→16:15)
[2020-12-30 11:48] LABS: Glucose,Whole Blood 209 mg/dL (75-99)
[2020-12-30 11:56] VITALS: RESP 20; TEMP 98.1
[2020-12-30 15:30] VITALS: BP 154/89; PULSE 88
[2020-12-30 15:43] LABS: Chol/HDL Ratio 4.33
[2020-12-30] MEDS ORDERED: busPIRone HCl 10 MG TAB PO STA (16:38)
[2020-12-30 16:41] LABS: Glucose,Whole Blood 241 mg/dL (75-99)
--- NOTE | 2020-12-31 11:00 | ECHOF ---
Referral Reason:LV function MEASUREMENTS -------- HEIGHT: 152.4 cm WEIGHT: 70.3 kg BP: 158/82 IVSd: 1.4 cm (0.6 - 1.1) LVIDd: 3.8 cm (3.9 - 5.3) LVPWd: 1.4 cm (0.6 - 1.1) EDV(Teich): 63 ml IVSs: 2.4 cm LVIDs: 2.6 cm LVPWs: 1.9 cm %IVS Thck: 70 % ESV(Teich): 24 ml EF(Teich): 62 % %FS: 33 % SV(Teich): 39 ml LA Diam: 3.6 cm (2.7 - 3.8) RVIDd: 2.8 cm (< 3.3) LALs A4C: 4.5 cm LAAs A4C: 16.3 cm LAESV A-L A4C: 50 ml LAESV MOD A4C: 48 ml LALs A2C: 5.8 cm LAAs A2C: 19.8 cm LAESV A-L A2C: 57 ml LAESV MOD A2C: 54 ml LAESV(A-L): 60 ml LAESV Index (A-L): 35.77 ml/m Ao Diam: 3.3 cm (2.0 - 3.7) AV Cusp: 2.1 cm (1.5 - 2.6) EPSS: 0.5 cm MV E [place]: 0.54 m/s MV DecT: 261 ms MV Dec [place]: 2.1 m/s MV A [place]: 0.92 m/s MV E/A Ratio: 0.59 MV PHT: 76 ms AV Vmax: 1.70 m/s AV maxP.55 mmHg TR Vmax: 2.69 m/s TR maxP.95 mmHg RAP: 5.00 mmHg RVSP: 33.95 mmHg MV EF SLOPE: 26.87 mm/s (70 - 150) MV EXCURSION: 13.02 mm (> 18.000) FINDINGS -------- Sinus rhythm. This was a technically adequate study. The left ventricular size is normal. There is moderate concentric left ventricular hypertrophy. O verall left ventricular systolic function is normal with, an EF between 60 - 65 %. The right ventricle is normal in size. LA is moderately dilated 34-39 ml/m2 The right atrium is normal in size. Interatrial and interventricular septum intact. There is mild aortic valve sclerosis. Trace amount of aortic regurgitation. Mild mitral annular calcification present. There is trace to mild mitral regurgitation. Mild tricuspid regurgitation present. There is borderline pulmonary hypertension. The right ventr icular systolic pressure, as measured by Doppler, is 33.95mmHg. Trace/mild (physiologic) pulmonic regurgitation. The aortic root size is normal. Normal inferior vena cava with normal inspiratory collapse consistent with estimated right atrial pre ssure of 5 mmHg. There is no pericardial effusion. CONCLUSIONS -------- 1. The left ventricular size is normal. 2. There is moderate concentric left ventricular hypertrophy. 3. Overall left ventricular systolic function is normal with, an EF between 60 - 65 %. 4. LA is moderately dilated 34-39 ml/m2 5. There is mild aortic valve sclerosis. 6. Trace amount of aortic regurgitation. 7. Mild mitral annular calcification present. 8. There is trace to mild mitral regurgitation. 9. Mild tricuspid regurgitation present. 10. There is borderline pulmonary hypertension. 11. The right ventricular systolic pressure, as measured by Doppler, is 33.95mmHg. 12. Trace/mild (physiologic) pulmonic regurgitation. 13. There is no pericardial effusion. SECURITY SALES MANAGER: Ginger Henriquez RDCS
== END 2020-12-30 17:03 | disposition home or self-care (01) ==
LOC: EC 13:53 → 3SCARD 16:37
PROVIDERS: ADMIT Family Medicine; ATTEND Family Medicine
DX: R53.1 Weakness (principal); R53.83 Other fatigue; R30.0 Dysuria; E27.40 Unspecified adrenocortical insufficiency; I16.0 Hypertensive urgency; E78.5 Hyperlipidemia, unspecified; E11.65 Type 2 diabetes mellitus with hyperglycemia; E11.40 Type 2 diabetes mellitus with diabetic neuropathy, unspecified; I25.10 Atherosclerotic heart disease of native coronary artery without angina pectoris; I10 Essential (primary) hypertension; M79.7 Fibromyalgia; G47.33 Obstructive sleep apnea (adult) (pediatric); M19.90 Unspecified osteoarthritis, unspecified site; F32.9 Major depressive disorder, single episode, unspecified; T46.5X6A Underdosing of other antihypertensive drugs, initial encounter; Z91.128 Patient's intentional underdosing of medication regimen for other reason; R94.31 Abnormal electrocardiogram [ECG] [EKG]; R11.2 Nausea with vomiting, unspecified; T38.0X6A Underdosing of glucocorticoids and synthetic analogues, initial encounter; Z79.82 Long term (current) use of aspirin; Z91.81 History of falling; Z79.899 Other long term (current) drug therapy; Z79.4 Long term (current) use of insulin; Z86.718 Personal history of other venous thrombosis and embolism; Z87.01 Personal history of pneumonia (recurrent); Z87.440 Personal history of urinary (tract) infections; Z87.09 Personal history of other diseases of the respiratory system; Z87.442 Personal history of urinary calculi; Z86.14 Personal history of Methicillin resistant Staphylococcus aureus infection; Z16.24 Resistance to multiple antibiotics; Z88.5 Allergy status to narcotic agent; Z88.0 Allergy status to penicillin; Z88.2 Allergy status to sulfonamides; Z88.8 Allergy status to other drugs, medicaments and biological substances; Z88.1 Allergy status to other antibiotic agents; Z91.02 Food additives allergy status; Z98.1 Arthrodesis status; Z90.49 Acquired absence of other specified parts of digestive tract; Z89.431 Acquired absence of right foot; Z90.710 Acquired absence of both cervix and uterus; Z82.49 Family history of ischemic heart disease and other diseases of the circulatory system; Z83.3 Family history of diabetes mellitus; Z80.49 Family history of malignant neoplasm of other genital organs; Z82.3 Family history of stroke; Z83.6 Family history of other diseases of the respiratory system; Z83.1 Family history of other infectious and parasitic diseases
CPT/HCPCS: 96376 ×3; 96361 ×3; 96365; 96375 ×2; 99285; 36415; 93005; 93306; 80061; 80053; 83605; 83735 ×2; 84484; 85025; 81001; 72100; 71046; G0378 ×2; J2765 ×2; J1720; J2405 ×2; J3475; J1170 ×2; 96374

== ENCOUNTER 2021-01-25 12:07 | Emergency (ER) | payer MEDICARE, BC ==
[2021-01-25] MEDS ORDERED: SODIUM CHLORIDE 0.9% 1,000 ML IV STA (13:26)
[2021-01-25] MEDS ORDERED: ONDANSETRON 4 MG/2 ML VIAL IVP STA (13:26)
[2021-01-25] MEDS ORDERED: HYDROmorphone 0.5 MG/0.5 ML SYRINGE IVP STA ×3 (13:26→17:33)
[2021-01-25 13:59] LABS: Basophils % (A) 0 %; Eosinophils # (A) 0.2 k/uL (0-0.7); Eosinophils % (A) 2 %; HCT 47.4 % (34.0-46.0); HGB 15.8 gm/dL (11.4-16.0); Lymphocytes # (A) 2.1 k/uL (1.0-4.8); Lymphocytes % (A) 22 %; MCH 30.7 pg (25.0-35.0); MCHC 33.3 g/dL (31.0-37.0); MCV 92.3 fL (80.0-100.0); Monocytes # (A) 0.5 k/uL (0-1.0); Monocytes % (A) 6 %; Neutrophils # (A) 6.6 k/uL (1.3-7.7); Neutrophils % (A) 68 %; Platelet Count 240 k/uL (150-450); RBC 5.14 m/uL (3.80-5.40); RDW 14.1 % (11.5-15.5); WBC 9.7 k/uL (3.8-10.6)
[2021-01-25 14:13] LABS: ALT 18 U/L (4-34); AST 22 U/L (14-36); African American GFR (CKD) >90 (>60 ml/min/1.73 sqM); Albumin 3.9 g/dL (3.5-5.0); Alkaline Phosphatase 78 U/L (38-126); Anion Gap 13 mmol/L; Blood Urea Nitrogen 22 mg/dL (7-17); Calcium 8.7 mg/dL (8.4-10.2); Carbon Dioxide 17 mmol/L (22-30); Chloride 106 mmol/L (98-107); Glucose 292 mg/dL (74-99); Non-African American GFR(CKD) >90 (>60 ml/min/1.73 sqM); Potassium 4.2 mmol/L (3.5-5.1); Sodium 136 mmol/L (137-145); Total Bilirubin 0.7 mg/dL (0.2-1.3)
[2021-01-25 15:28] LABS: Appearance,Urine Clear (Clear); Bacteria,Urine Rare /hpf; Bilirubin,Urine Negative (Negative); Blood,Urine Trace (Negative); Color,Urine Yellow; Glucose,Urine (UA) 4+ (Negative); Leukocyte Esterase,Urine Moderate (Negative); Mucus,Urine Rare /hpf; Nitrite,Urine Negative (Negative); PH, Urine 5.5 (5.0-8.0); Protein,Urine Trace (Negative); RBC,Urine 2 /hpf (0-5); Specific Gravity,Urine 1.021 (1.001-1.035); Squamous Epithelial Cell,Urine 1 /hpf (0-4); Urobilinogen,Urine <2.0 mg/dL (<2.0); WBC,Urine 13 /hpf (0-5)
[2021-01-25 15:30] LABS: Ketones,Urine 2+ (Negative)
[2021-01-25 15:56] VITALS: RESP 20
--- NOTE | 2021-01-25 17:34 | ED ---
General Adult HPI - General Chief complaint: Nausea/Vomiting/Diarrhea Stated complaint: nausea, vomiting Time Seen by Provider: 01/25/21 12:56 Source: patient, EMS, RN notes reviewed Mode of arrival: EMS - History of Present Illness Initial comments: 70-year-old male with a past medical history of diabetes mellitus, hyperlipidemia, hypertension, renal disease, adrenal insufficiency presents to the emergency room for a chief complaint of nausea vomiting. Patient reports she has been nauseous and vomiting at home over the past couple days. Patient states she feels weak as well and feels that she needed IV steroids. Patient will also have stricture her urinary tract infection is improving and she just finished antibiotics for this.Patient has no other complaints at this time including shortness of breath, chest pain, abdominal pain, headache, or visual changes. - Related Data Home Medications Medication Instructions Recorded Confirmed Cholecalciferol [Vitamin D3 (25 75 mcg PO DAILY 12/01/14 12/29/20 Mcg = 1000 Iu)] Metoprolol Succinate (ER) [Toprol 50 mg PO HS 07/06/17 12/29/20 XL] Meclizine [Antivert] 25 mg PO QID PRN 11/26/17 12/29/20 Ferrous Sulfate [Iron (65 MG 325 mg PO DAILY 10/08/18 12/29/20 Elemental)] Folic Acid 0.4 mg PO DAILY 10/08/18 12/29/20 L.acidoph,Paracasei, B.lactis 2 cap PO BID 10/08/18 12/29/20 [Probiotic] Melatonin 5 mg PO HS PRN 10/08/18 12/29/20 Multivitamins, Thera Liquid 30 ml PO DAILY 10/08/18 12/29/20 [Theragran Liquid (formulary)] Potassium 99 mg PO DAILY 10/08/18 12/29/20 Thiamine [Vitamin B-1] 100 mg PO DAILY 10/08/18 12/29/20 Vitamin B-Complex Drops 1 ml PO BID 10/08/18 12/29/20 Venlafaxine HCl [Effexor XR] 75 mg PO DAILY 11/08/19 12/29/20 Magnesium Oxide [Mag-Ox] 400 mg PO DAILY 12/06/19 12/29/20 HYDROcodone/APAP 10-325MG [[place] 1 tab PO QID PRN 04/16/20 12/29/20 10-325] C,E,Zinc,Copper 11/Vgblw4t/Lut 1 cap PO DAILY 06/25/20 12/29/20 [Ocuvite Adult 50 Plus Softgel] Cyanocobalamin (Vitamin B-12) 1,000 mcg PO DAILY 06/25/20 12/29/20 [Vitamin B-12] Ondansetron HCl [Zofran] 4 mg PO Q6H PRN 06/25/20 12/29/20 Spironolactone 50 mg PO DAILY 06/25/20 12/29/20 Vitamin E 400 unit PO DAILY 06/25/20 12/29/20 lisinopriL 40 mg PO DAILY 06/25/20 12/29/20 Brimonidine Tartrate [Alphagan P 1 drop RIGHT EYE BID 11/26/20 12/29/20 0.2% Ophth Soln] Butalb/APAP/Caff 50-325-40Mg 1 tab PO TID PRN 11/26/20 12/29/20 [Fioricet 50-325-40] Cholestyramine (with Sugar) 4 gm PO DAILY 11/26/20 12/29/20 [Questran Packet] Cranberry [id number] Cap 1 cap PO BID 11/26/20 12/29/20 Estrogens, Conjugated Cream 1 applicator VAGINAL DAILY 11/26/20 12/29/20 [Premarin Cream] Glucagon [Gvoke Pfs 1-Pack Syringe] 1 mg SQ ONCE PRN 11/26/20 12/29/20 Insulin Aspart [NovoLOG Flexpen] 11 units SQ AC-BRKFST 11/26/20 12/29/20 Insulin Aspart [NovoLOG Flexpen] 20 units SQ AC-LUNCH 11/26/20 12/29/20 Insulin Aspart [NovoLOG Flexpen] 26 unit SQ AC-SUPPER 11/26/20 12/29/20 Insulin Aspart [NovoLOG Flexpen] See Protocol SQ AC-TID PRN 11/26/20 12/29/20 Metoclopramide HCl [Reglan] 5 mg PO TID PRN 11/26/20 12/29/20 Pantoprazole Sodium [Protonix] 40 mg PO DAILY 11/26/20 12/29/20 Promethazine HCl [Phenergan Syrup] 6.25 mg PO Q6H PRN 11/26/20 12/29/20 Cephalexin [Keflex] 250 mg PO HS 12/11/20 12/29/20 Insulin Glargine,Hum.rec.anlog 30 unit SQ HS 12/11/20 12/29/20 [Lantus Solostar] Fluconazole [Diflucan] 100 mg PO HS PRN 12/29/20 12/29/20 Previous Rx's Medication Instructions Recorded Aspirin 81 mg PO DAILY #0 07/02/18 Atorvastatin [Lipitor] 40 mg PO HS #30 tab 11/16/18 Gabapentin [Neurontin] 100 mg PO TID #9 cap 03/24/20 Hydrocortisone [Cortef] 5 mg PO HS #0 12/16/20 Hydrocortisone [Cortef] 10 mg PO DAILY@1200 #0 12/16/20 Hydrocortisone [Cortef] 15 mg PO DAILY #0 12/16/20 Nystatin 1 applic TOPICAL DAILY PRN #15 gram 12/16/20 Nystatin 100,000 Unit/gm Powd 1 applic TOPICAL TID #15 g 12/16/20 [Mycostatin Powder] Dicyclomine [Bentyl] 10 mg PO QID PRN #20 cap 12/21/20 Ondansetron [Zofran ODT] 4 mg PO Q8HR PRN #15 tab 01/25/21 Allergies Allergy/AdvReac Type Severity Reaction Status Date / Time butorphanol tartrate Allergy BLISTERS Verified 12/29/20 15:40 [From Stadol] IN MOUTH ceftriaxone [From Rocephin] Allergy Unknown Verified 12/29/20 15:40 clarithromycin [From Biaxin] Allergy Rash/Hives Verified 12/29/20 15:40 clindamycin Allergy Unknown Verified 12/29/20 15:40 codeine Allergy Rash/Hives Verified 12/29/20 15:40 ergotamine tartrate Allergy Unknown Verified 12/29/20 15:40 [From Cafergot] erythromycin base Allergy RASH, GI Verified 12/29/20 15:40 [From E-Mycin] SYMPTOMS ketorolac tromethamine Allergy Rash/Hives Verified 12/29/20 15:40 [From Toradol] liraglutide [From Victoza] Allergy Rash/Hives Verified 12/29/20 15:40 morphine Allergy Rash/Hives Verified 12/29/20 15:40 Penicillins Allergy Rash/Hives Verified 12/29/20 15:40 pentazocine lactate Allergy SEVERE Verified 12/29/20 15:40 [From Talwin] BLISTERS IN MOUTH pregabalin [From Lyrica] Allergy Rash/Hives Verified 12/29/20 15:40 propoxyphene HCl Allergy Rash/Hives Verified 12/29/20 15:40 [From Darvon] Sulfa (Sulfonamide Allergy Rash/Hives Verified 12/29/20 15:40 Antibiotics) tramadol Allergy Unknown Verified 12/29/20 15:40 monosodium glutamate [MSG] AdvReac Nausea & Verified 12/29/20 15:40 Vomiting nalbuphine HCl [From Nubain] AdvReac Nausea & Verified 12/29/20 15:40 Vomiting Review of Systems ROS Statement: Those systems with pertinent positive or pertinent negative responses have been documented in the HPI. ROS Other: All systems not noted in ROS Statement are negative. 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, DVT R calf in 1976, cardiac murmur, occipital neuraligia, balance issues-has narrowing of vessels "in the back of my head", vertigo, varicosities, states rt shoulder torn rotator cuff History of Any Multi-Drug Resistant Organisms: ESBL, MRSA, VRE Date of last positivie culture/infection: 11/25/20 ESBL;12/06/19 VRE; 03/10/11 MRSA MDRO Source:: Urine ESBL; Urine-VRE: MRSA 4th Right TOE Past Surgical History: Appendectomy, Back Surgery, Bladder Surgery, Breast Surgery, Cholecystectomy, Heart Catheterization, Hysterectomy, Orthopedic Surgery, Tonsillectomy Additional Past Surgical History / Comment(s): Lumbar fusions, bladder suspension, occipital nerve blocks, 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, R wrist/elbow nerve repair, bone removed R shoulder, 4th toe R foot partial amputation, bilateral feet/bunionectomies, R knee arthroscopies, R orbit decompression with ethmoidectomy and eyelid lift, EGD, colonoscopies, cystocopies, lithotripsy/stents, bilateral breast reduction, bilateral cataract removals, parathyroid surgery - April 2019, pain clinic procedures Past Anesthesia/Blood Transfusion Reactions: No Reported Reaction Additional Past Anesthesia/Blood Transfusion Reaction / Comment(s): never recieved blood Past Psychological History: Depression Smoking Status: Never smoker Past Alcohol Use History: None Reported Past Drug Use History: None Reported - Past Family History Father Family Medical History: Coronary Artery Disease (CAD), CVA/TIA, Diabetes Mellitus, Myocardial Infarction (UT), Pneumonia Additional Family Medical History / Comment(s): Father at the age of 78yrs from [place] and pneumonia. Mother Family Medical History: Cancer, Congestive Heart Failure (CHF) Additional Family Medical History / Comment(s): Mother had uterine cancer. She recently at the age of 96yrs old from [place]. General Exam General appearance: alert, in no apparent distress Head exam: Present: atraumatic, normocephalic, normal inspection Eye exam: Present: normal appearance, PERRL, EOMI. Absent: scleral icterus, conjunctival injection, periorbital swelling ENT exam: Present: normal exam, mucous membranes moist Neck exam: Present: normal inspection, full ROM. Absent: tenderness, meningi smus, lymphadenopathy Respiratory exam: Present: normal lung sounds bilaterally. Absent: respiratory distress, wheezes, rales, rhonchi, stridor Cardiovascular Exam: Present: regular rate, normal rhythm, normal heart sounds. Absent: systolic murmur, diastolic murmur, rubs, gallop, clicks GI/Abdominal exam: Present: soft, normal bowel sounds. Absent: distended, tenderness Neurological exam: Present: alert Course Vital Signs 01/25/21 01/25/21 01/25/21 12:08 12:57 14:31 Temperature 98.3 F Pulse Rate 107 H 108 H 103 H Respiratory 20 20 18 Rate Blood Pressure 150/100 149/97 142/89 O2 Sat by Pulse 95 96 92 L Oximetry 01/25/21 01/25/21 15:12 15:56 Temperature Pulse Rate 103 H 107 H Respiratory 18 20 Rate Blood Pressure 148/90 158/83 O2 Sat by Pulse 98 96 Oximetry Medical Decision Making - Medical Decision Making Vitals are stable. CBC is unremarkable. CMP does show evidence of dehydration and there are also 2+ ketones in the urine. Patient was given a liter of fluid for this and also address her glucose of 292. Patient also had her Solu-Medrol given by EMS. Patient did not have any nausea or vomiting in the emergency room. Patient was able to get up to the bedside commode without any assistance. Case was discussed with Dr. Gonsales. At this time we feel patient can follow up outpatient. He will see patient in the office. patient will return for any worsening symptoms. - Lab Data Result diagrams: 01/25/21 13:38 01/25/21 13:38 Lab Results 01/25/21 01/25/21 01/25/21 Range/Units 13:38 13:38 13:38 WBC 9.7 (3.8-10.6) k/uL RBC 5.14 (3.80-5.40) m/uL Hgb 15.8 (11.4-16.0) gm/dL Hct 47.4 H (34.0-46.0) % MCV 92.3 (80.0-100.0) fL MCH 30.7 (25.0-35.0) pg MCHC 33.3 (31.0-37.0) g/dL RDW 14.1 (11.5-15.5) % Plt Count 240 (150-450) k/uL MPV 9.0 Neutrophils % 68 % Lymphocytes % 22 % Monocytes % 6 % Eosinophils % 2 % Basophils % 0 % Neutrophils # 6.6 (1.3-7.7) k/uL Lymphocytes # 2.1 (1.0-4.8) k/uL Monocytes # 0.5 (0-1.0) k/uL Eosinophils # 0.2 (0-0.7) k/uL Basophils # 0.0 (0-0.2) k/uL Sodium 136 L (137-145) mmol/L Potassium 4.2 (3.5-5.1) mmol/L Chloride 106 (98-107) mmol/L Carbon Dioxide 17 L (22-30) mmol/L Anion Gap 13 mmol/L BUN 22 H (7-17) mg/dL Creatinine 0.59 (0.52-1.04) mg/dL Est GFR (CKD-EPI)AfAm >90 (>60 ml/min/1.73 sqM) Est GFR (CKD-EPI)NonAf >90 (>60 ml/min/1.73 sqM) Glucose 292 H (74-99) mg/dL Calcium 8.7 (8.4-10.2) mg/dL Total Bilirubin 0.7 (0.2-1.3) mg/dL AST 22 (14-36) U/L ALT 18 (4-34) U/L Alkaline Phosphatase 78 (38-126) U/L Total Protein 6.0 L (6.3-8.2) g/dL Albumin 3.9 (3.5-5.0) g/dL Urine Color Yellow Urine Appearance Clear (Clear) Urine pH 5.5 (5.0-8.0) Ur Specific [place] 1.021 (1.001-1.035) Urine Protein Trace H (Negative) Urine Glucose (UA) 4+ H (Negative) Urine Ketones 2+ H (Negative) Urine Blood Trace H (Negative) Urine Nitrite Negative (Negative) Urine Bilirubin Negative (Negative) Urine Urobilinogen <2.0 (<2.0) mg/dL Ur Leukocyte Esterase Moderate H (Negative) Urine RBC 2 (0-5) /hpf Urine WBC 13 H (0-5) /hpf Ur Squamous Epith Cells 1 (0-4) /hpf Urine Bacteria Rare H (None) /hpf Urine Mucus Rare H (None) /hpf Disposition Clinical Impression: Nausea & vomiting Disposition: HOME SELF-CARE Condition: Good Instructions (If sedation given, give patient instructions): Acute Nausea and Vomiting (ED) Additional Instructions: Please follow-up with your doctor in one to 2 days. Return to the emergency room for any worsening symptoms. Prescriptions: Ondansetron [Zofran ODT] 4 mg PO Q8HR PRN #15 tab PRN Reason: Nausea Is patient prescribed a controlled substance at d/c from ED?: No Referrals: Andrew Gonsales MD [Primary Care Provider] - 1-2 days Time of Disposition: 17:33
[2021-01-25 17:54] VITALS: BP 165/91; PULSE 118; TEMP 99.1
== END 2021-01-25 18:03 | disposition home or self-care (01) ==
LOC: EC 12:07
DX: R11.2 Nausea with vomiting, unspecified (principal); R19.7 Diarrhea, unspecified; R53.1 Weakness; I12.9 Hypertensive chronic kidney disease with stage 1 through stage 4 chronic kidney disease, or unspecified chronic kidney disease; N18.9 Chronic kidney disease, unspecified; M79.7 Fibromyalgia; E11.22 Type 2 diabetes mellitus with diabetic chronic kidney disease; Z86.718 Personal history of other venous thrombosis and embolism; Z79.899 Other long term (current) drug therapy; Z88.1 Allergy status to other antibiotic agents; Z88.5 Allergy status to narcotic agent; Z88.6 Allergy status to analgesic agent; Z88.8 Allergy status to other drugs, medicaments and biological substances; Z88.2 Allergy status to sulfonamides
CPT/HCPCS: 36415; 80053; 85025; 81001; 87086; 99285; 96374; 96376; 96375; 96361; J2405; J1170

== ENCOUNTER 2021-02-04 16:21 | Emergency (ER) | payer MEDICARE, BC ==
[2021-02-04 16:46] VITALS: TEMP 98.4
[2021-02-04] MEDS ORDERED: ONDANSETRON 4 MG/2 ML VIAL IVP STA (19:26)
[2021-02-04] MEDS ORDERED: SODIUM CHLORIDE 0.9% 500 ML 500 ML IV STA (19:26)
[2021-02-04] MEDS ORDERED: HYDROmorphone 1 MG/ML 1 ML SYRINGE IVP STA (19:26)
[2021-02-04] MEDS ORDERED: diphenhydrAMINE 50 MG/ML 1 ML VIAL IVP STA (19:26)
--- NOTE | 2021-02-04 19:28 | ED ---
Nausea/Vomiting/Diarrhea HPI - General Chief complaint: Nausea/Vomiting/Diarrhea Stated complaint: NVD, headache Time Seen by Provider: 02/04/21 19:21 Source: patient Mode of arrival: wheelchair Limitations: no limitations - History of Present Illness Initial comments: 70-year-old female patient presents to the emergency department today for evaluation of headache, nausea, vomiting, diarrhea. States she's had 2-3 episodes of vomiting and 4 episodes of diarrhea. Denies any hematochezia, melena, hematemesis. Denies any known fever or chills. States that she does get headaches frequently, no new features with this headache. Denies numbness, tingling, weakness to the extremities. Denies blurred or double vision. Denies any sick contacts or recent travel. Denies any medication changes. States she does have history of frequent urinary tract infections, currently denies symptoms. Patient denies any recent rash, cough, shortness of breath, chest pain, abdominal pain, constipation, back pain, dizziness, weakness, hematuria, dysuria, urinary urgency, urinary frequency, or any other complaints. - Related Data Home Medications Medication Instructions Recorded Confirmed Cholecalciferol [Vitamin D3 (25 75 mcg PO DAILY 12/01/14 02/04/21 Mcg = 1000 Iu)] Metoprolol Succinate (ER) [Toprol 50 mg PO HS 07/06/17 02/04/21 XL] Meclizine [Antivert] 25 mg PO QID PRN 11/26/17 02/04/21 Ferrous Sulfate [Iron (65 MG 325 mg PO DAILY 10/08/18 02/04/21 Elemental)] Folic Acid 0.4 mg PO DAILY 10/08/18 02/04/21 L.acidoph,Paracasei, B.lactis 2 cap PO BID 10/08/18 02/04/21 [Probiotic] Melatonin 5 mg PO HS PRN 10/08/18 02/04/21 Multivitamins, Thera Liquid 30 ml PO DAILY 10/08/18 02/04/21 [Theragran Liquid (formulary)] Potassium 99 mg PO DAILY 10/08/18 02/04/21 Thiamine [Vitamin B-1] 100 mg PO DAILY 10/08/18 02/04/21 Vitamin B-Complex Drops 1 ml PO BID 10/08/18 02/04/21 Venlafaxine HCl [Effexor XR] 75 mg PO DAILY 11/08/19 02/04/21 Magnesium Oxide [Mag-Ox] 400 mg PO DAILY 12/06/19 02/04/21 HYDROcodone/APAP 10-325MG [Antelope 1 tab PO QID PRN 04/16/20 02/04/21 10-325] C,E,Zinc,Copper 11/Qjpcu7b/Lut 1 cap PO DAILY 06/25/20 02/04/21 [Ocuvite Adult 50 Plus Softgel] Cyanocobalamin (Vitamin B-12) 1,000 mcg PO DAILY 06/25/20 02/04/21 [Vitamin B-12] Ondansetron HCl [Zofran] 4 mg PO Q6H PRN 06/25/20 02/04/21 Spironolactone 50 mg PO DAILY 06/25/20 02/04/21 Vitamin E 400 unit PO DAILY 06/25/20 02/04/21 lisinopriL 40 mg PO DAILY 06/25/20 02/04/21 Brimonidine Tartrate [Alphagan P 1 drop RIGHT EYE BID 11/26/20 02/04/21 0.2% Ophth Soln] Butalb/APAP/Caff 50-325-40Mg 1 tab PO TID PRN 11/26/20 02/04/21 [Fioricet 50-325-40] Cholestyramine (with Sugar) 4 gm PO DAILY 11/26/20 02/04/21 [Questran Packet] Cranberry [id number] Cap 1 cap PO BID 11/26/20 02/04/21 Estrogens, Conjugated Cream 1 applicator VAGINAL DAILY 11/26/20 02/04/21 [Premarin Cream] Glucagon [Gvoke Pfs 1-Pack Syringe] 1 mg SQ ONCE PRN 11/26/20 02/04/21 Insulin Aspart [NovoLOG Flexpen] 11 units SQ AC-BRKFST 11/26/20 02/04/21 Insulin Aspart [NovoLOG Flexpen] 20 units SQ AC-LUNCH 11/26/20 02/04/21 Insulin Aspart [NovoLOG Flexpen] 26 unit SQ AC-SUPPER 11/26/20 02/04/21 Insulin Aspart [NovoLOG Flexpen] See Protocol SQ AC-TID PRN 11/26/20 02/04/21 Metoclopramide HCl [Reglan] 5 mg PO TID PRN 11/26/20 02/04/21 Pantoprazole Sodium [Protonix] 40 mg PO DAILY 11/26/20 02/04/21 Promethazine HCl [Phenergan Syrup] 6.25 mg PO Q6H PRN 11/26/20 02/04/21 Cephalexin [Keflex] 250 mg PO HS 12/11/20 02/04/21 Insulin Glargine,Hum.rec.anlog 30 unit SQ HS 12/11/20 02/04/21 [Lantus Solostar] Fluconazole [Diflucan] 100 mg PO HS PRN 12/29/20 02/04/21 busPIRone HCl [Buspar] 5 mg PO BID 02/04/21 02/04/21 Previous Rx's Medication Instructions Recorded Aspirin 81 mg PO DAILY #0 07/02/18 Atorvastatin [Lipitor] 40 mg PO HS #30 tab 11/16/18 Gabapentin [Neurontin] 100 mg PO TID #9 cap 03/24/20 Hydrocortisone [Cortef] 5 mg PO HS #0 12/16/20 Hydrocortisone [Cortef] 10 mg PO DAILY@1200 #0 12/16/20 Hydrocortisone [Cortef] 15 mg PO DAILY #0 12/16/20 Nystatin 1 applic TOPICAL DAILY PRN #15 gram 12/16/20 Nystatin 100,000 Unit/gm Powd 1 applic TOPICAL TID #15 g 12/16/20 [Mycostatin Powder] Dicyclomine [Bentyl] 10 mg PO QID PRN #20 cap 12/21/20 Ondansetron [Zofran ODT] 4 mg PO Q8HR PRN #15 tab 01/25/21 Ondansetron [Zofran ODT] 4 mg PO Q8HR PRN #10 tab 02/04/21 Allergies Allergy/AdvReac Type Severity Reaction Status Date / Time butorphanol tartrate Allergy BLISTERS Verified 02/04/21 16:46 [From Stadol] IN MOUTH ceftriaxone [From Rocephin] Allergy Unknown Verified 02/04/21 16:46 clarithromycin [From Biaxin] Allergy Rash/Hives Verified 02/04/21 16:46 clindamycin Allergy Unknown Verified 02/04/21 16:46 codeine Allergy Rash/Hives Verified 02/04/21 16:46 ergotamine tartrate Allergy Unknown Verified 02/04/21 16:46 [From Cafergot] erythromycin base Allergy RASH, GI Verified 02/04/21 16:46 [From E-Mycin] SYMPTOMS ketorolac tromethamine Allergy Rash/Hives Verified 02/04/21 16:46 [From Toradol] liraglutide [From Victoza] Allergy Rash/Hives Verified 02/04/21 16:46 morphine Allergy Rash/Hives Verified 02/04/21 16:46 Penicillins Allergy Rash/Hives Verified 02/04/21 16:46 pentazocine lactate Allergy SEVERE Verified 02/04/21 16:46 [From Talwin] BLISTERS IN MOUTH pregabalin [From Lyrica] Allergy Rash/Hives Verified 02/04/21 16:46 propoxyphene HCl Allergy Rash/Hives Verified 02/04/21 16:46 [From Darvon] Sulfa (Sulfonamide Allergy Rash/Hives Verified 02/04/21 16:46 Antibiotics) tramadol Allergy Unknown Verified 02/04/21 16:46 monosodium glutamate [MSG] AdvReac Nausea & Verified 02/04/21 16:46 Vomiting nalbuphine HCl [From Nubain] AdvReac Nausea & Verified 02/04/21 16:46 Vomiting Review of Systems ROS Statement: Those systems with pertinent positive or pertinent negative responses have been documented in the HPI. ROS Other: All systems not noted in ROS Statement are negative. 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, DVT R calf in 1976, cardiac murmur, occipital neuraligia, balance issues-has narrowing of vessels "in the back of my head", vertigo, varicosities, states rt shoulder torn rotator cuff History of Any Multi-Drug Resistant Organisms: ESBL, MRSA, VRE Date of last positivie culture/infection: 11/25/20 ESBL;12/06/19 VRE; 03/10/11 MRSA MDRO Source:: Urine ESBL; Urine-VRE: MRSA 4th Right TOE Past Surgical History: Appendectomy, Back Surgery, Bladder Surgery, Breast Surgery, Cholecystectomy, Heart Catheterization, Hysterectomy, Orthopedic Surgery, Tonsillectomy Additional Past Surgical History / Comment(s): Lumbar fusions, bladder suspension, occipital nerve blocks, 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, R wrist/elbow nerve repair, bone removed R shoulder, 4th toe R foot partial amputation, bilateral feet/bunionectomies, R knee arthroscopies, R orbit decompression with ethmoidectomy and eyelid lift, EGD, colonoscopies, cystocopies, lithotripsy/stents, bilateral breast reduction, bilateral cataract removals, parathyroid surgery - April 2019, pain clinic procedures Past Anesthesia/Blood Transfusion Reactions: No Reported Reaction Additional Past Anesthesia/Blood Transfusion Reaction / Comment(s): never recieved blood Past Psychological History: Depression Smoking Status: Never smoker Past Alcohol Use History: None Reported Past Drug Use History: None Reported - Past Family History Father Family Medical History: Coronary Artery Disease (CAD), CVA/TIA, Diabetes Mellitus, Myocardial Infarction (NV), Pneumonia Additional Family Medical History / Comment(s): Father at the age of 78yrs from NV and pneumonia. Mother Family Medical History: Cancer, Congestive Heart Failure (CHF) Additional Family Medical History / Comment(s): Mother had uterine cancer. She recently at the age of 96yrs old from [facility]. General Exam Limitations: no limitations General appearance: alert, in no apparent distress, other (Physical well- developed, well-nourished elderly female patient in no acute distress. Vital signs upon presentation are temperature 98.4F, pulse 82, respirations 18, blood pressure 132/83, pulse ox 98% on room air.) Eye exam: Present: normal appearance, PERRL, EOMI. Absent: scleral icterus, conjunctival injection, periorbital swelling ENT exam: Present: normal exam, normal oropharynx, mucous membranes moist Respiratory exam: Present: normal lung sounds bilaterally. Absent: respiratory distress, wheezes, rales, rhonchi, stridor Cardiovascular Exam: Present: regular rate, normal rhythm, normal heart sounds. Absent: systolic murmur, diastolic murmur, rubs, gallop, clicks GI/Abdominal exam: Present: soft, normal bowel sounds. Absent: distended, tenderness, guarding, rebound, rigid Neurological exam: Present: alert, oriented X3, CN II-XII intact, other (Strength in all 4 extremities is 5/5.) Psychiatric exam: Present: normal affect, normal mood Skin exam: Present: warm, dry, intact, normal color. Absent: rash Course Vital Signs 02/04/21 02/04/21 02/04/21 16:44 20:10 21:00 Temperature 98.4 F Pulse Rate 82 99 92 Respiratory 18 16 16 Rate Blood Pressure 132/83 159/95 167/91 O2 Sat by Pulse 98 99 98 Oximetry Medical Decision Making - Medical Decision Making 70 year-old female patient presented for evaluation nausea, vomiting, and headache. Physical exam was unremarkable. Abdomen soft and non-tender. Neurologically intact without focal deficits. No chest pain. Labs reviewed and are unremarkable. Urine negative for UTI. Upon re-evaluation she requesting more pain medication for her headache. Her headaches are chronic, she denies changes today, denies this being the worst headache of her life. She will be discharged to follow up with the primary care physician for recheck in 1-2 days. Return parameters discussed in detail. She verbalizes understanding and agrees with this plan. Case discussed with my attending Dr. Lawrence - Lab Data Result diagrams: 02/04/21 19:33 02/04/21 19:33 Lab Results 02/04/21 02/04/21 02/04/21 Range/Units 19:33 19:33 19:33 WBC 9.7 (3.8-10.6) k/uL RBC 4.96 (3.80-5.40) m/uL Hgb 15.4 (11.4-16.0) gm/dL Hct 46.4 H (34.0-46.0) % MCV 93.5 (80.0-100.0) fL MCH 31.2 (25.0-35.0) pg MCHC 33.3 (31.0-37.0) g/dL RDW 15.4 (11.5-15.5) % Plt Count 259 (150-450) k/uL MPV 8.6 Neutrophils % 76 % Lymphocytes % 18 % Monocytes % 5 % Eosinophils % 0 % Basophils % 0 % Neutrophils # 7.4 (1.3-7.7) k/uL Lymphocytes # 1.8 (1.0-4.8) k/uL Monocytes # 0.5 (0-1.0) k/uL Eosinophils # 0.0 (0-0.7) k/uL Basophils # 0.0 (0-0.2) k/uL Hypochromasia Slight Poikilocytosis Slight Sodium 137 (137-145) mmol/L Potassium 3.7 (3.5-5.1) mmol/L Chloride 99 (98-107) mmol/L Carbon Dioxide 27 (22-30) mmol/L Anion Gap 11 mmol/L BUN 19 H (7-17) mg/dL Creatinine 0.80 (0.52-1.04) mg/dL Est GFR (CKD-EPI)AfAm 86 (>60 ml/min/1.73 sqM) Est GFR (CKD-EPI)NonAf 75 (>60 ml/min/1.73 sqM) Glucose 212 H (74-99) mg/dL Calcium 12.2 H (8.4-10.2) mg/dL Total Bilirubin 0.3 (0.2-1.3) mg/dL AST 25 (14-36) U/L ALT 19 (4-34) U/L Alkaline Phosphatase 60 (38-126) U/L Total Protein 6.3 (6.3-8.2) g/dL Albumin 4.2 (3.5-5.0) g/dL Lipase 80 (23-300) U/L Urine Color Light Yellow Urine Appearance Clear (Clear) Urine pH 6.0 (5.0-8.0) Ur Specific [place] 1.009 (1.001-1.035) Urine Protein Negative (Negative) Urine Glucose (UA) Negative (Negative) Urine Ketones Negative (Negative) Urine Blood Negative (Negative) Urine Nitrite Negative (Negative) Urine Bilirubin Negative (Negative) Urine Urobilinogen <2.0 (<2.0) mg/dL Ur Leukocyte Esterase Negative (Negative) Disposition Clinical Impression: Nausea and vomiting, Headache Disposition: HOME SELF-CARE Condition: Good Instructions (If sedation given, give patient instructions): Acute Headache (ED), Acute Nausea and Vomiting (ED) Additional Instructions: Take medications as directed. Follow up with primary care physician for recheck in 1-2 days. Return for any new, worsening, or concerning symptoms. Prescriptions: Ondansetron [Zofran ODT] 4 mg PO Q8HR PRN #10 tab PRN Reason: Nausea Is patient prescribed a controlled substance at d/c from ED?: No Referrals: Andrew Gonsales MD [Primary Care Provider] - 1-2 days Time of Disposition: 21:42
[2021-02-04 20:17] LABS: Appearance,Urine Clear (Clear); Bilirubin,Urine Negative (Negative); Blood,Urine Negative (Negative); Color,Urine Light Yellow; Glucose,Urine (UA) Negative (Negative); Ketones,Urine Negative (Negative); Leukocyte Esterase,Urine Negative (Negative); Nitrite,Urine Negative (Negative); Protein,Urine Negative (Negative); Specific Gravity,Urine 1.009 (1.001-1.035); Urobilinogen,Urine <2.0 mg/dL (<2.0)
[2021-02-04 20:30] LABS: Albumin 4.2 g/dL (3.5-5.0); Calcium 12.2 mg/dL (8.4-10.2); Potassium 3.7 mmol/L (3.5-5.1); Total Bilirubin 0.3 mg/dL (0.2-1.3); Total Protein 6.3 g/dL (6.3-8.2)
[2021-02-04] MEDS ORDERED: HYDROmorphone 0.5 MG/0.5 ML SYRINGE IVP STA ×2 (21:01→21:43)
[2021-02-04 21:02] LABS: Basophils % (A) 0 %; Eosinophils % (A) 0 %; HCT 46.4 % (34.0-46.0); HGB 15.4 gm/dL (11.4-16.0); Hypochromasia Slight; Lymphocytes # (A) 1.8 k/uL (1.0-4.8); Lymphocytes % (A) 18 %; MCH 31.2 pg (25.0-35.0); MCHC 33.3 g/dL (31.0-37.0); MCV 93.5 fL (80.0-100.0); Mean Platelet Volume 8.6; Monocytes # (A) 0.5 k/uL (0-1.0); Monocytes % (A) 5 %; Neutrophils # (A) 7.4 k/uL (1.3-7.7); Neutrophils % (A) 76 %; Platelet Count 259 k/uL (150-450); Poikilocytosis Slight; RBC 4.96 m/uL (3.80-5.40); RDW 15.4 % (11.5-15.5); WBC 9.7 k/uL (3.8-10.6)
[2021-02-04 22:24] VITALS: BP 172/91; PULSE 95; RESP 18
== END 2021-02-04 22:20 | disposition home or self-care (01) ==
LOC: EC 16:21
DX: R11.2 Nausea with vomiting, unspecified (principal); R51.9 Headache, unspecified; I10 Essential (primary) hypertension; E11.9 Type 2 diabetes mellitus without complications; E78.5 Hyperlipidemia, unspecified; M79.7 Fibromyalgia; Z79.4 Long term (current) use of insulin; Z79.899 Other long term (current) drug therapy; Z88.0 Allergy status to penicillin; Z88.1 Allergy status to other antibiotic agents; Z88.2 Allergy status to sulfonamides; Z88.5 Allergy status to narcotic agent; Z88.8 Allergy status to other drugs, medicaments and biological substances; Z90.49 Acquired absence of other specified parts of digestive tract; Z88.6 Allergy status to analgesic agent
CPT/HCPCS: 36415; 80053; 83690; 85025; 81003; 99284; 96374; 96375; 96376; 96361; J1200; J2405; J1170 ×2

== ENCOUNTER 2021-02-17 11:31 | Inpatient (IN) | payer MEDICARE, BC ==
[2021-02-17 11:43] LABS: Glucose,Whole Blood 177 mg/dL (75-99)
[2021-02-17] MEDS ORDERED: SODIUM CHLORIDE 0.9% 1,000 ML IV STA (12:08)
[2021-02-17] MEDS ORDERED: HYDROmorphone 0.5 MG/0.5 ML SYRINGE IVP STA (12:09)
[2021-02-17] MEDS ORDERED: HYDROCORTISONE SUCCINATE 100 MG/2 ML VIAL IV STA (12:09)
[2021-02-17] MEDS ORDERED: ONDANSETRON 4 MG/2 ML VIAL IVP STA (12:13)
--- NOTE | 2021-02-17 12:13 | ED ---
General Adult HPI - General Chief complaint: Weakness Stated complaint: High blood pressure, Nausea Time Seen by Provider: 02/17/21 11:53 Source: patient Mode of arrival: EMS Limitations: no limitations - History of Present Illness Initial comments: Dictation was produced using [employer] dictation software. please excuse any grammatical, word or spelling errors. Chief Complaint: 70-year-old female well-known to emergency Department presents to the ER today for nausea and vomiting History of Present Illness: 70-year-old female she has multiple comorbidities. She has history of adrenal insufficiency and takes daily oral steroids. Over the last 2-3 days she's been having persistent nausea and vomiting. She's been without her medications for the last 2-3 days due to by mouth intolerance. States she's been having episodes of nonbilious nonbloody emesis. No diarrhea. Patient complains of total body pain. She has history of fibromyalgia. She denies any chest pain. No shortness of breath. Chart review was performed. Patient was admitted to our hospital on December 30 for similar presentation. She was admitted at that time for fluid hydration and then discharged. Patient requesting opiate medications for treatment of her chronic headaches and total body pain. The ROS documented in this emergency department record has been reviewed and confirmed by me. Those systems with pertinent positive or negative responses h ave been documented in the HPI. All other systems are other negative and/or noncontributory. PHYSICAL EXAM: General Impression: Alert and oriented x3, nauseated HEENT: Normocephalic atraumatic, extra-ocular movements intact, pupils equal and reactive to light bilaterally, mucous membranes moist. Cardiovascular: Heart regular rate and rhythm Chest: Able to complete full sentences, no retractions, no tachypnea Abdomen: abdomen soft, non-tender, non-distended, no organomegaly Musculoskeletal: Pulses present and equal in all extremities, no peripheral edema Motor: no focal deficits noted Neurological: CN II-XII grossly intact, no focal motor or sensory deficits noted Skin: Intact with no visualized rashes Psych: Normal affect and mood ED course: 70-year-old male presents to the emergency department for nausea. Patient has multiple comorbidities. She reports intractable nausea and vomi ting. She is unable to tolerate or oral medications. Vital signs upon arrival are within acceptable limits. Patient given IV steroids due to intolerance of her oral medications and history of adrenal insufficiency. Laboratory evaluation obtained. CBC within acceptable limits. Coag panel metabolic panel is within acceptable limits. There is a very mild acidosis, evidence of dehydration with elevated BUN to creatinine ratio. Lactic acid 2.2 likely starvation ketoacidosis due to poor oral intake. Patient does not feel comfortable being discharged. She'll be admitted. Case discussed with Dr. Oconnor was went except patient's care for IV fluids, nausea management and analgesia. EKG interpretation: Ventricular rate 113, sinus tachycardia,. 156, QRS 84, QTC 455. No GA prolongation, no QTC prolongation, no ST or T-wave changes noted. EKG compared to December 29 2020 showing no changes. Overall, this EKG is unremarkable - Related Data Home Medications Medication Instructions Recorded Confirmed Cholecalciferol [Vitamin D3 (25 75 mcg PO DAILY 12/01/14 02/04/21 Mcg = 1000 Iu)] Metoprolol Succinate (ER) [Toprol 50 mg PO HS 07/06/17 02/04/21 XL] Meclizine [Antivert] 25 mg PO QID PRN 11/26/17 02/04/21 Ferrous Sulfate [Iron (65 MG 325 mg PO DAILY 10/08/18 02/04/21 Elemental)] Folic Acid 0.4 mg PO DAILY 10/08/18 02/04/21 L.acidoph,Paracasei, B.lactis 2 cap PO BID 10/08/18 02/04/21 [Probiotic] Melatonin 5 mg PO HS PRN 10/08/18 02/04/21 Multivitamins, Thera Liquid 30 ml PO DAILY 10/08/18 02/04/21 [Theragran Liquid (formulary)] Potassium 99 mg PO DAILY 10/08/18 02/04/21 Thiamine [Vitamin B-1] 100 mg PO DAILY 10/08/18 02/04/21 Vitamin B-Complex Drops 1 ml PO BID 10/08/18 02/04/21 Venlafaxine HCl [Effexor XR] 75 mg PO DAILY 11/08/19 02/04/21 Magnesium Oxide [Mag-Ox] 400 mg PO DAILY 12/06/19 02/04/21 HYDROcodone/APAP 10-325MG [Anthony 1 tab PO QID PRN 04/16/20 02/04/21 10-325] C,E,Zinc,Copper 11/Xztkk6w/Lut 1 cap PO DAILY 06/25/20 02/04/21 [Ocuvite Adult 50 Plus Softgel] Cyanocobalamin (Vitamin B-12) 1,000 mcg PO DAILY 06/25/20 02/04/21 [Vitamin B-12] Ondansetron HCl [Zofran] 4 mg PO Q6H PRN 06/25/20 02/04/21 Spironolactone 50 mg PO DAILY 06/25/20 02/04/21 Vitamin E 400 unit PO DAILY 06/25/20 02/04/21 lisinopriL 40 mg PO DAILY 06/25/20 02/04/21 Brimonidine Tartrate [Alphagan P 1 drop RIGHT EYE BID 11/26/20 02/04/21 0.2% Ophth Soln] Butalb/APAP/Caff 50-325-40Mg 1 tab PO TID PRN 11/26/20 02/04/21 [Fioricet 50-325-40] Cholestyramine (with Sugar) 4 gm PO DAILY 11/26/20 02/04/21 [Questran Packet] Cranberry 67014wo Cap 1 cap PO BID 11/26/20 02/04/21 Estrogens, Conjugated Cream 1 applicator VAGINAL DAILY 11/26/20 02/04/21 [Premarin Vaginal Cream] Glucagon [Gvoke Pfs 1-Pack Syringe] 1 mg SQ ONCE PRN 11/26/20 02/04/21 Insulin Aspart [NovoLOG Flexpen] 11 units SQ AC-BRKFST 11/26/20 02/04/21 Insulin Aspart [NovoLOG Flexpen] 20 units SQ AC-LUNCH 11/26/20 02/04/21 Insulin Aspart [NovoLOG Flexpen] 26 unit SQ AC-SUPPER 11/26/20 02/04/21 Insulin Aspart [NovoLOG Flexpen] See Protocol SQ AC-TID PRN 11/26/20 02/04/21 Metoclopramide HCl [Reglan] 5 mg PO TID PRN 11/26/20 02/04/21 Pantoprazole Sodium [Protonix] 40 mg PO DAILY 11/26/20 02/04/21 Promethazine HCl [Phenergan Syrup] 6.25 mg PO Q6H PRN 11/26/20 02/04/21 Cephalexin [Keflex] 250 mg PO HS 12/11/20 02/04/21 Insulin Glargine,Hum.rec.anlog 30 unit SQ HS 12/11/20 02/04/21 [Lantus Solostar Pen] Fluconazole [Diflucan] 100 mg PO HS PRN 12/29/20 02/04/21 busPIRone HCl [Buspar] 5 mg PO BID 02/04/21 02/04/21 Previous Rx's Medication Instructions Recorded Aspirin 81 mg PO DAILY #0 07/02/18 Atorvastatin [Lipitor] 40 mg PO HS #30 tab 11/16/18 Gabapentin [Neurontin] 100 mg PO TID #9 cap 03/24/20 Hydrocortisone [Cortef] 5 mg PO HS #0 12/16/20 Hydrocortisone [Cortef] 10 mg PO DAILY@1200 #0 12/16/20 Hydrocortisone [Cortef] 15 mg PO DAILY #0 12/16/20 Nystatin 1 applic TOPICAL DAILY PRN #15 gram 12/16/20 Nystatin 100,000 Unit/gm Powd 1 applic TOPICAL TID #15 g 12/16/20 [Mycostatin Powder] Dicyclomine [Bentyl] 10 mg PO QID PRN #20 cap 12/21/20 Ondansetron [Zofran ODT] 4 mg PO Q8HR PRN #15 tab 01/25/21 Ondansetron [Zofran ODT] 4 mg PO Q8HR PRN #10 tab 02/04/21 Allergies Allergy/AdvReac Type Severity Reaction Status Date / Time butorphanol tartrate Allergy BLISTERS Verified 02/04/21 16:46 [From Stadol] IN MOUTH ceftriaxone [From Rocephin] Allergy Unknown Verified 02/04/21 16:46 clarithromycin [From Biaxin] Allergy Rash/Hives Verified 02/04/21 16:46 clindamycin Allergy Unknown Verified 02/04/21 16:46 codeine Allergy Rash/Hives Verified 02/04/21 16:46 ergotamine tartrate Allergy Unknown Verified 02/04/21 16:46 [From Cafergot] erythromycin base Allergy RASH, GI Verified 02/04/21 16:46 [From E-Mycin] SYMPTOMS ketorolac tromethamine Allergy Rash/Hives Verified 02/04/21 16:46 [From Toradol] liraglutide [From Victoza] Allergy Rash/Hives Verified 02/04/21 16:46 morphine Allergy Rash/Hives Verified 02/04/21 16:46 Penicillins Allergy Rash/Hives Verified 02/04/21 16:46 pentazocine lactate Allergy SEVERE Verified 02/04/21 16:46 [From Talwin] BLISTERS IN MOUTH pregabalin [From Lyrica] Allergy Rash/Hives Verified 02/04/21 16:46 propoxyphene HCl Allergy Rash/Hives Verified 02/04/21 16:46 [From Darvon] Sulfa (Sulfonamide Allergy Rash/Hives Verified 02/04/21 16:46 Antibiotics) tramadol Allergy Unknown Verified 02/04/21 16:46 monosodium glutamate [MSG] AdvReac Nausea & Verified 02/04/21 16:46 Vomiting nalbuphine HCl [From Nubain] AdvReac Nausea & Verified 02/04/21 16:46 Vomiting Review of Systems ROS Statement: Those systems with pertinent positive or pertinent negative responses have been documented in the HPI. ROS Other: All systems not noted in ROS Statement are negative. 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, DVT R calf in 1976, cardiac murmur, occipital neuraligia, balance issues-has narrowing of vessels "in the back of my head", vertigo, varicosities, states rt shoulder torn rotator cuff History of Any Multi-Drug Resistant Organisms: ESBL, MRSA, VRE Date of last positivie culture/infection: 11/25/20 ESBL;12/06/19 VRE; 03/10/11 MRSA MDRO Source:: Urine ESBL; Urine-VRE: MRSA 4th Right TOE Past Surgical History: Appendectomy, Back Surgery, Bladder Surgery, Breast Surgery, Cholecystectomy, Heart Catheterization, Hysterectomy, Orthopedic Surgery, Tonsillectomy Additional Past Surgical History / Comment(s): Lumbar fusions, bladder suspension, occipital nerve blocks, 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, R wrist/elbow nerve repair, bone removed R shoulder, 4th toe R foot partial amputation, bilateral feet/bunionectomies, R knee arthroscopies, R orbit decompression with ethmoidectomy and eyelid lift, EGD, colonoscopies, cystocopies, lithotripsy/stents, bilateral breast reduction, bilateral cataract removals, parathyroid surgery - April 2019, pain clinic procedures Past Anesthesia/Blood Transfusion Reactions: No Reported Reaction Additional Past Anesthesia/Blood Transfusion Reaction / Comment(s): never reci eved blood Past Psychological History: Depression Smoking Status: Never smoker Past Alcohol Use History: None Reported Past Drug Use History: None Reported - Past Family History Father Family Medical History: Coronary Artery Disease (CAD), CVA/TIA, Diabetes Mellitus, Myocardial Infarction ([place]), Pneumonia Additional Family Medical History / Comment(s): Father at the age of 78yrs from [place] and pneumonia. Mother Family Medical History: Cancer, Congestive Heart Failure (CHF) Additional Family Medical History / Comment(s): Mother had uterine cancer. She recently at the age of 96yrs old from [employer]. General Exam Limitations: no limitations Course Vital Signs 02/17/21 02/17/21 02/17/21 11:46 11:51 12:41 Temperature 97.3 F L Pulse Rate 94 108 H Pulse Rate [ 94 Bilateral Radial] Respiratory 18 18 18 Rate Blood Pressure 198/107 182/111 O2 Sat by Pulse 98 96 Oximetry Medical Decision Making - Lab Data Result diagrams: 02/17/21 12:17 02/17/21 12:17 Lab Results 02/17/21 02/17/21 02/17/21 Range/Units 11:41 12:17 12:17 WBC 9.9 (3.8-10.6) k/uL RBC 4.82 (3.80-5.40) m/uL Hgb 15.0 (11.4-16.0) gm/dL Hct 44.0 (34.0-46.0) % MCV 91.2 (80.0-100.0) fL MCH 31.1 (25.0-35.0) pg MCHC 34.1 (31.0-37.0) g/dL RDW 15.1 (11.5-15.5) % Plt Count 276 (150-450) k/uL MPV 7.4 Neutrophils % 84 % Lymphocytes % 11 % Monocytes % 3 % Eosinophils % 1 % Basophils % 0 % Neutrophils # 8.3 H (1.3-7.7) k/uL Lymphocytes # 1.1 (1.0-4.8) k/uL Monocytes # 0.3 (0-1.0) k/uL Eosinophils # 0.1 (0-0.7) k/uL Basophils # 0.0 (0-0.2) k/uL PT 9.6 (9.0-12.0) sec INR 0.9 (<1.2) APTT 18.2 L (22.0-30.0) sec Sodium (137-145) mmol/L Potassium (3.5-5.1) mmol/L Chloride (98-107) mmol/L Carbon Dioxide (22-30) mmol/L Anion Gap mmol/L BUN (7-17) mg/dL Creatinine (0.52-1.04) mg/dL Est GFR (CKD-EPI)AfAm (>60 ml/min/1.73 sqM) Est GFR (CKD-EPI)NonAf (>60 ml/min/1.73 sqM) Glucose (74-99) mg/dL POC Glucose (mg/dL) 177 H (75-99) mg/dL POC Glu Commercial Administrator ID Belval, Gwendolyn Plasma Lactic Acid Sudhir (0.7-2.0) mmol/L Calcium (8.4-10.2) mg/dL Magnesium (1.6-2.3) mg/dL Total Bilirubin (0.2-1.3) mg/dL AST (14-36) U/L ALT (4-34) U/L Alkaline Phosphatase (38-126) U/L Total Protein (6.3-8.2) g/dL Albumin (3.5-5.0) g/dL 02/17/21 02/17/21 Range/Units 12:17 12:17 WBC (3.8-10.6) k/uL RBC (3.80-5.40) m/uL Hgb (11.4-16.0) gm/dL Hct (34.0-46.0) % MCV (80.0-100.0) fL MCH (25.0-35.0) pg MCHC (31.0-37.0) g/dL RDW (11.5-15.5) % Plt Count (150-450) k/uL MPV Neutrophils % % Lymphocytes % % Monocytes % % Eosinophils % % Basophils % % Neutrophils # (1.3-7.7) k/uL Lymphocytes # (1.0-4.8) k/uL Monocytes # (0-1.0) k/uL Eosinophils # (0-0.7) k/uL Basophils # (0-0.2) k/uL PT (9.0-12.0) sec INR (<1.2) APTT (22.0-30.0) sec Sodium 135 L (137-145) mmol/L Potassium 4.3 (3.5-5.1) mmol/L Chloride 102 (98-107) mmol/L Carbon Dioxide 21 L (22-30) mmol/L Anion Gap 12 mmol/L BUN 20 H (7-17) mg/dL Creatinine 0.66 (0.52-1.04) mg/dL Est GFR (CKD-EPI)AfAm >90 (>60 ml/min/1.73 sqM) Est GFR (CKD-EPI)NonAf 89 (>60 ml/min/1.73 sqM) Glucose 189 H (74-99) mg/dL POC Glucose (mg/dL) (75-99) mg/dL POC Glu Commercial Administrator ID Plasma Lactic Acid Sudhir 2.2 H* (0.7-2.0) mmol/L Calcium 9.2 (8.4-10.2) mg/dL Magnesium 2.2 (1.6-2.3) mg/dL Total Bilirubin 0.3 (0.2-1.3) mg/dL AST 27 (14-36) U/L ALT 22 (4-34) U/L Alkaline Phosphatase 77 (38-126) U/L Total Protein 6.6 (6.3-8.2) g/dL Albumin 4.3 (3.5-5.0) g/dL Disposition Clinical Impression: Nausea Disposition: ADMITTED IP TO THIS HOSP Condition: Fair Referrals: Andrew Gonsales MD [Primary Care Provider] - 1-2 days
[2021-02-17 12:32] LABS: Basophils % (A) 0 %; Eosinophils # (A) 0.1 k/uL (0-0.7); Eosinophils % (A) 1 %; Lymphocytes # (A) 1.1 k/uL (1.0-4.8); Lymphocytes % (A) 11 %; MCH 31.1 pg (25.0-35.0); MCHC 34.1 g/dL (31.0-37.0); MCV 91.2 fL (80.0-100.0); Mean Platelet Volume 7.4; Monocytes # (A) 0.3 k/uL (0-1.0); Monocytes % (A) 3 %; Neutrophils # (A) 8.3 k/uL (1.3-7.7); Neutrophils % (A) 84 %; Platelet Count 276 k/uL (150-450); RBC 4.82 m/uL (3.80-5.40); RDW 15.1 % (11.5-15.5); WBC 9.9 k/uL (3.8-10.6)
[2021-02-17 12:48] LABS: ALT 22 U/L (4-34); AST 27 U/L (14-36); African American GFR (CKD) >90 (>60 ml/min/1.73 sqM); Albumin 4.3 g/dL (3.5-5.0); Alkaline Phosphatase 77 U/L (38-126); Anion Gap 12 mmol/L; Blood Urea Nitrogen 20 mg/dL (7-17); Calcium 9.2 mg/dL (8.4-10.2); Carbon Dioxide 21 mmol/L (22-30); Chloride 102 mmol/L (98-107); Glucose 189 mg/dL (74-99); INR 0.9 (<1.2); Magnesium 2.2 mg/dL (1.6-2.3); Non-African American GFR(CKD) 89 (>60 ml/min/1.73 sqM); Potassium 4.3 mmol/L (3.5-5.1); Prothrombin Time 9.6 sec (9.0-12.0); Sodium 135 mmol/L (137-145); Total Bilirubin 0.3 mg/dL (0.2-1.3); Total Protein 6.6 g/dL (6.3-8.2)
[2021-02-17 12:55] LABS: Partial Thromboplastin Time 18.2 sec (22.0-30.0)
[2021-02-17] MEDS ORDERED: NALOXONE 0.4 MG/ML 1 ML VIAL IV PRN (13:10)
[2021-02-17] MEDS ORDERED: ONDANSETRON 4 MG/2 ML VIAL IVP PRN (13:10)
[2021-02-17] MEDS ORDERED: HYDROmorphone 0.5 MG/0.5 ML SYRINGE IVP PRN (13:10)
[2021-02-17] MEDS ORDERED: ACETAMINOPHEN TAB 325 MG TAB PO PRN (13:10)
[2021-02-17] MEDS: LORazepam 2 MG/ML INJ IV PRN ×2 (13:53→22:12)
[2021-02-17] MEDS: HYDROmorphone 0.5 MG/0.5 ML SYRINGE IVP PRN ×3 (13:54→20:50)
[2021-02-17] MEDS: ONDANSETRON 4 MG/2 ML VIAL IVP PRN ×2 (13:54→19:22)
[2021-02-17 14:52] LABS: Appearance,Urine Clear (Clear); Bilirubin,Urine Negative (Negative); Blood,Urine Small (Negative); Color,Urine Light Yellow; Glucose,Urine (UA) 1+ (Negative); Leukocyte Esterase,Urine Small (Negative); Mucus,Urine Rare /hpf; Nitrite,Urine Negative (Negative); Protein,Urine Trace (Negative); RBC,Urine 1 /hpf (0-5); Specific Gravity,Urine 1.022 (1.001-1.035); Squamous Epithelial Cell,Urine <1 /hpf (0-4); Urobilinogen,Urine <2.0 mg/dL (<2.0); WBC,Urine 2 /hpf (0-5)
--- NOTE | 2021-02-17 14:58 | XR ---
EXAMINATION TYPE: XR chest 1V DATE OF EXAM: 02/17/2021 COMPARISON: 12/29/2020 INDICATION: Nausea vomiting weakness TECHNIQUE: Frontal and lateral views of the chest are obtained. FINDINGS: The heart size is mildly prominent. The pulmonary vasculature is normal. The lungs are clear. IMPRESSION: 1. Mild cardiomegaly. 2. No acute pulmonary process.
[2021-02-17 15:21] LABS: Ketones,Urine 2+ (Negative)
[2021-02-17] MEDS: SODIUM CHLORIDE 0.9% 1,000 ML IV SCH (16:19)
[2021-02-17 16:59] LABS: Glucose,Whole Blood 183 mg/dL (75-99)
[2021-02-17] MEDS ORDERED: MELATONIN 5 MG TABLET PO PRN (17:08)
[2021-02-17] MEDS ORDERED: METOCLOPRAMIDE 5 MG TAB PO PRN (17:08)
[2021-02-17] MEDS ORDERED: BUTALB/APAP/CAFF 50-325-40MG TAB PO PRN (17:08)
[2021-02-17] MEDS ORDERED: HYDROcodone/APAP 10-325MG 1 EACH TAB PO PRN (17:08)
[2021-02-17] MEDS ORDERED: MECLIZINE 25 MG TAB PO PRN (17:08)
[2021-02-17] MEDS ORDERED: hydrALAZINE HCL 20 MG/ML 1 ML VIAL IVP PRN (17:10)
[2021-02-17] MEDS: lisinopriL 20 MG TAB PO SCH (18:06)
[2021-02-17] MEDS: HYDROCORTISONE SUCCINATE 100 MG/2 ML VIAL IV SCH ×2 (18:06→22:02)
--- NOTE | 2021-02-17 20:01 | HP ---
HISTORY AND PHYSICAL I am covering for Dr. Gonsales. DATE OF SERVICE: 02/17/2021 CHIEF COMPLAINTS: Weakness as well as nausea and vomiting. HISTORY OF PRESENT ILLNESS: This 70-year-old woman with a past medical history of multiple medical problems, including diabetes mellitus, DVT, fibromyalgia, hypertension, hyperlipidemia, history of DJD, history of sleep apnea, ESBL, MRSA, VRE, being followed by Dr. Gonsales in the outpatient setting, was complaining of nausea, vomiting, tiredness. The patient has multiple comorbidities. The patient was not taking medications for the last 2-3 days because of intolerance. The patient also had episodes of non-bilious the patient was also complaining of severe abdominal pain. There is no history of any fever, rigors or chills. No history of headache, loss of consciousness, seizures at this time. PAST MEDICAL HISTORY: History of diabetes mellitus, DVT, fibromyalgia, hypertension, hyperlipidemia, history of DJD, history of vascular disorder. MEDICATIONS: Home medications are metoprolol, FlexPen, Cortef, Holman, Fioricet, Lipitor, Reglan. Doses and other medications are also reviewed. ALLERGIES: MULTIPLE ALLERGIES: SOTALOL, ROCEPHIN, BIAXIN, CLINDAMYCIN, CODEINE, CAFERGOT, TORADOL, VICTOZA, MORPHINE, PENICILLIN, TALWIN, MSG, NUBAIN. FAMILY HISTORY: History of CHF and cancer in the family. SOCIAL HISTORY: No history of smoking. No history of alcohol intake. REVIEW OF SYSTEMS: ENT: No diminished hearing. No diminished vision. CARDIOVASCULAR SYSTEM: No angina, palpitations. RESPIRATORY SYSTEM: As mentioned earlier. GI: As mentioned earlier. : No dysuria. NERVOUS SYSTEM: No numbness, weakness. ALLERGY/IMMUNOLOGY: No asthma or hay fever. MUSCULOSKELETAL: As mentioned earlier. HEMATOLOGY/ONCOLOGY: No history of anemia. ENDOCRINE: As mentioned earlier. CONSTITUTIONAL: As mentioned earlier. DERMATOLOGY: Negative. RHEUMATOLOGY: Negative. PSYCHIATRY: As mentioned earlier. PHYSICAL EXAMINATION: Patient alert and oriented x3. Pulse is 108, blood pressure 182/111, respiration 18, temperature 97.2, pulse ox 96% on room air. HEENT: Conjunctivae normal. Oral mucosa moist. NECK: No jugular venous distention. No carotid bruit. No lymph node enlargement. CARDIOVASCULAR: S1, S2 muffled. RESPIRATION: Breath sounds diminished at the bases. Scattered rhonchi. ABDOMEN: Soft. Mild diffuse tenderness present. No guarding. No rigidity. Minimal distention. LEGS: No edema. No swelling. NERVOUS SYSTEM: Higher functions as mentioned earlier. Moves all 4 limbs. No focal motor or sensory deficit. LYMPHATICS: No lymph node palpable in neck, axillae or groin. SKIN: No ulcer, rash, bleeding. JOINTS: No active deforming arthropathy. LABS: CBC within normal limits. Sodium ntd, potassium 4.3, glucose 183. Lactic acid is 2.2. ASSESSMENT: 1. Nausea, vomiting; possible acute gastritis. 2. Hyponatremia. 3. Accelerated hypertension and hypertensive urgency, present on admission. 4. Diabetes mellitus, type 2. 5. Elevated lactic acid, present on admission. 6. History of deep vein thrombosis. 7. Fibromyalgia. 8. Hyperlipidemia. 9. Hypertension. 10.History of degenerative joint disease. 11.History of pneumonia. 12.History of sleep apnea. 13.History of pyelonephritis, sepsis. 14.History of adrenal insufficiency. 15.History of hyperparathyroidism and surgery. 16.History of pelvis fracture. 17.History of deep vein thrombosis. 18.History of cardiac murmur. 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 20.History of appendectomy. 21.History of back surgery. 22.Obesity with body mass index of 33.9. 23.FULL CODE. RECOMMENDATIONS AND DISCUSSION: In this 70-year-old woman who presented with multiple complex medical issues, we will monitor the patient closely, continue the current medications, continue with symptomatic treatment. Resume the home medications. Obtain cultures. There is no evidence any overt infection at this time. Will hold off the antibiotic at this time because of the patient's multiple antibiotic resistance previously. A chest x- ray was done which I reviewed personally. It showed no evidence of any obvious pneumonia. COVID- 19 is negative. Further recommendations to follow. A copy of this dictation is being forwarded to Dr. Gonsales, who is the primary physician. MMODL / SAMN: [id number] / [facility]
[2021-02-17 20:34] LABS: Appearance,Urine Clear (Clear); Bilirubin,Urine Negative (Negative); Blood,Urine Small (Negative); Color,Urine Yellow; Glucose,Urine (UA) 1+ (Negative); Leukocyte Esterase,Urine Small (Negative); Mucus,Urine Rare /hpf; Nitrite,Urine Negative (Negative); PH, Urine 5.5 (5.0-8.0); Protein,Urine 1+ (Negative); RBC,Urine 2 /hpf (0-5); Specific Gravity,Urine 1.021 (1.001-1.035); Squamous Epithelial Cell,Urine 1 /hpf (0-4); Urobilinogen,Urine <2.0 mg/dL (<2.0); WBC,Urine 9 /hpf (0-5)
[2021-02-17 21:00] LABS: Ketones,Urine 2+ (Negative)
[2021-02-17] MEDS: ATORVASTATIN 40 MG TAB PO SCH (21:03)
[2021-02-17 21:42] LABS: Glucose,Whole Blood 190 mg/dL (75-99)
[2021-02-17] MEDS: METOCLOPRAMIDE 5 MG/ML 2 ML VIAL IVP PRN (21:58)
[2021-02-17] MEDS: PANTOPRAZOLE 40 MG/10 ML VIAL IVP SCH (22:00)
[2021-02-17] MEDS: HEPARIN SODIUM,PORCINE/PF 5,000 UNIT/0.5 ML SYRINGE SQ SCH (22:00)
[2021-02-17] MEDS: INSULIN DETEMIR (LEVEMIR) 100 UNIT/ML SYR SQ SCH (22:01)
[2021-02-17] MEDS: BRIMONIDINE TARTRATE 0.2% DROPS 5 ML BTL RIGHT EYE SCH (22:03)
[2021-02-17] MEDS: VITAMIN B COMPLEX PO SCH (22:04)
[2021-02-18] MEDS: GABAPENTIN 100 MG CAP PO SCH ×4 (01:10→21:57)
[2021-02-18] MEDS: busPIRone HCl 5 MG TAB PO SCH ×3 (01:10→21:55)
[2021-02-18] MEDS: METOPROLOL SUCCINATE (ER) 50 MG TAB.ER.24H PO SCH ×2 (01:11→21:56)
[2021-02-18] MEDS: HYDROmorphone 0.5 MG/0.5 ML SYRINGE IVP PRN ×7 (01:11→21:55)
[2021-02-18] MEDS: SODIUM CHLORIDE 0.9% 1,000 ML IV SCH ×2 (01:13→16:36)
[2021-02-18] MEDS: ONDANSETRON 4 MG/2 ML VIAL IVP PRN ×3 (01:17→21:56)
[2021-02-18] MEDS: HYDROCORTISONE SUCCINATE 100 MG/2 ML VIAL IV SCH ×4 (05:40→23:57)
[2021-02-18] MEDS: METOCLOPRAMIDE 5 MG/ML 2 ML VIAL IVP PRN ×2 (05:41→12:21)
[2021-02-18] MEDS: CYANOCOBALAMIN 500 MCG TAB PO SCH (08:00)
[2021-02-18] MEDS: CHOLECALCIFEROL 25 MCG (1000 IU) TABLET PO SCH (08:00)
[2021-02-18] MEDS: SPIRONOLACTONE 25 MG TAB PO SCH (08:00)
[2021-02-18] MEDS: MAGNESIUM OXIDE 400 MG TAB PO SCH (08:01)
[2021-02-18] MEDS: VENLAFAXINE HCL ER 75 MG CAP PO SCH (08:01)
[2021-02-18] MEDS: VITAMIN E (DL,TOCOPHERYL ACET) 400 UNIT (180 MG) CAP PO SCH (08:01)
[2021-02-18] MEDS: MULTIVITAMINS, THERA 1 EACH TAB PO SCH (08:01)
[2021-02-18] MEDS: lisinopriL 20 MG TAB PO SCH (08:01)
[2021-02-18] MEDS: HEPARIN SODIUM,PORCINE/PF 5,000 UNIT/0.5 ML SYRINGE SQ SCH ×2 (08:02→21:56)
[2021-02-18] MEDS: BRIMONIDINE TARTRATE 0.2% DROPS 5 ML BTL RIGHT EYE SCH ×2 (08:02→21:56)
[2021-02-18] MEDS: PANTOPRAZOLE 40 MG/10 ML VIAL IVP SCH (08:02)
[2021-02-18] MEDS: NON FORMULARY DRUG (Folic Acid [Folic Acid] 0.4 MG Tablet) PO SCH (08:02)
[2021-02-18 08:07] LABS: Glucose,Whole Blood 108 mg/dL (75-99)
[2021-02-18 08:29] LABS: Glucose,Whole Blood 109 mg/dL (75-99)
[2021-02-18] MEDS: VITAMIN B COMPLEX PO SCH ×2 (08:49→21:57)
[2021-02-18 12:09] LABS: Glucose,Whole Blood 131 mg/dL (75-99)
[2021-02-18 12:09] LABS: Basophils # (A) 0.01 X 10*3/uL (0.00-0.10); Basophils % (A) 0.1 %; Eosinophils # (A) 0.02 X 10*3/uL (0.04-0.35); Eosinophils % (A) 0.2 %; HCT 36.5 % (37.2-46.3); HGB 11.5 g/dL (12.0-15.0); Lymphocytes # (A) 0.93 X 10*3/uL (0.90-5.00); Lymphocytes % (A) 10.6 %; MCH 29.7 pg (27.0-32.0); MCHC 31.5 g/dL (32.0-37.0); MCV 94.3 fL (80.0-97.0); Mean Platelet Volume 10.7 fL (9.5-12.2); Monocytes # (A) 0.52 X 10*3/uL (0.20-1.00); Monocytes % (A) 5.9 %; Neutrophils # (A) 7.24 X 10*3/uL (1.80-7.70); Neutrophils % (A) 82.6 %; Platelet Count 226 X 10*3/uL (140-440); RBC 3.87 X 10*6/uL (4.10-5.20); RDW 14.8 % (11.5-14.5); WBC 8.77 X 10*3/uL (4.50-10.00)
[2021-02-18 14:02] LABS: African American GFR (CKD) 106.3 (60.0-200.0); Anion Gap 12.3 mmol/L (4.00-12.00); BUN/Creat Ratio 28.33 Ratio (12.00-20.00); Calcium 8.6 mg/dL (8.7-10.3); Carbon Dioxide 20.7 mmol/L (21.6-31.8); Non-African American GFR(CKD) 91.7 (60.0-200.0); Potassium 4.4 mmol/L (3.5-5.5)
--- NOTE | 2021-02-18 15:59 | PN ---
PROGRESS NOTE DATE OF SERVICE: 02/18/2021 This 70-year-old woman who was admitted with generalized weakness as well as nausea and vomiting is being closely monitored. The patient is also being evaluated to rule out the possibility of sepsis. The patient has severe hyponatremia. The patient is also complaining of some aches and pains. No chest pain. No palpitations. No fever. Chest x-ray shows no obvious pneumonia at this time. Past medical history reviewed. REVIEW OF SYSTEMS: CARDIOVASCULAR SYSTEM: No angina. RESPIRATION: As mentioned earlier. GI: No nausea, vomiting, diarrhea. : No dysuria. NERVOUS SYSTEM: No numbness, weakness. CURRENT MEDICATIONS: Reviewed. They include Tylenol, Fioricet, [place], Lipitor, Alphagan, BuSpar, vitamin D2, B12, Neurontin. PHYSICAL EXAMINATION: Patient is alert and oriented x3. Pulse 77, blood pressure 167/74, respiration 20, temperature 98.4, pulse ox 100% on room air. HEENT: Conjunctivae normal. NECK: No jugular venous distention. CARDIOVASCULAR: S1, S2 muffled. RESPIRATION: Breath sounds diminished at the bases. A few scattered rhonchi and crackles. ABDOMEN: Soft, obese, non-tender. LEGS: No edema. No swelling. NERVOUS SYSTEM: No focal deficit. LABS: WBC 8.7, hemoglobin 11.4. Sodium 144, potassium 4.8. Glucose 109. ASSESSMENT: 1. Nausea and vomiting; possibly acute gastritis. Rule out sepsis. 2. Hypo_natremia. 3. Accelerated hypertension and hypertensive urgency, present on admission. 4. Dehydration, present on admission. 5. Diabetes mellitus, type 2. 6. Elevated lactic acid, present on admission. Rule out sepsis. 7. History of deep vein thrombosis. 8. Fibromyalgia. 9. Hyperlipidemia. 10.Hypertension. 11.History of degenerative joint disease. 12.History of pneumonia. 13.History of sleep apnea. 14.History of pyelonephritis and sepsis. 15.History of adrenal insufficiency. 16.History of hyperparathyroidism and surgery. 17.History of pelvic fracture. 18.History of cardiac murmur. 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 20.History of appendectomy. 21.History of back surgery. 22.Obesity with body mass index of 33.9. 23.FULL CODE. RECOMMENDATIONS AND DISCUSSION: I recommend to continue current medications, continue with symptomatic treatment. Continue with Pepcid b.i.d. I would also recommend holding off the antibiotics still and continue the cultures, which are negative so far. Prognosis guarded. Further recommendations to follow. Repeat labs will be ordered. MMTRUDIL / IJN: [id number] / MTDD
[2021-02-18 17:30] LABS: Glucose,Whole Blood 157 mg/dL (75-99)
[2021-02-18 20:59] LABS: Glucose,Whole Blood 281 mg/dL (75-99)
[2021-02-18] MEDS: ATORVASTATIN 40 MG TAB PO SCH (21:55)
[2021-02-18] MEDS: PANTOPRAZOLE 40 MG TABLET PO SCH (21:56)
[2021-02-18] MEDS: INSULIN DETEMIR (LEVEMIR) 100 UNIT/ML SYR SQ SCH (21:58)
[2021-02-19] MEDS: HYDROmorphone 0.5 MG/0.5 ML SYRINGE IVP PRN ×7 (01:30→23:21)
[2021-02-19] MEDS: METOCLOPRAMIDE 5 MG/ML 2 ML VIAL IVP PRN (04:42)
[2021-02-19] MEDS: HYDROCORTISONE SUCCINATE 100 MG/2 ML VIAL IV SCH ×4 (05:42→23:21)
[2021-02-19] MEDS: SODIUM CHLORIDE 0.9% 1,000 ML IV SCH ×2 (05:43→15:47)
[2021-02-19 07:22] LABS: African American GFR (CKD) >90 (>60 ml/min/1.73 sqM); Anion Gap 5 mmol/L; Blood Urea Nitrogen 14 mg/dL (7-17); Calcium 8.4 mg/dL (8.4-10.2); Carbon Dioxide 25 mmol/L (22-30); Chloride 106 mmol/L (98-107); Glucose 154 mg/dL (74-99); Non-African American GFR(CKD) >90 (>60 ml/min/1.73 sqM); Potassium 4.1 mmol/L (3.5-5.1); Sodium 136 mmol/L (137-145)
[2021-02-19 07:24] LABS: Glucose,Whole Blood 149 mg/dL (75-99)
[2021-02-19 09:37] LABS: Basophils # (A) 0.01 X 10*3/uL (0.00-0.10); Basophils % (A) 0.1 %; Eosinophils # (A) 0.01 X 10*3/uL (0.04-0.35); Eosinophils % (A) 0.1 %; HCT 35.6 % (37.2-46.3); HGB 11.6 g/dL (12.0-15.0); Lymphocytes # (A) 1.07 X 10*3/uL (0.90-5.00); Lymphocytes % (A) 13.3 %; MCH 30.4 pg (27.0-32.0); MCHC 32.6 g/dL (32.0-37.0); MCV 93.2 fL (80.0-97.0); Mean Platelet Volume 10.4 fL (9.5-12.2); Monocytes # (A) 0.58 X 10*3/uL (0.20-1.00); Monocytes % (A) 7.2 %; Neutrophils # (A) 6.31 X 10*3/uL (1.80-7.70); Neutrophils % (A) 78.7 %; Platelet Count 213 X 10*3/uL (140-440); RBC 3.82 X 10*6/uL (4.10-5.20); RDW 14.8 % (11.5-14.5); WBC 8.03 X 10*3/uL (4.50-10.00)
[2021-02-19] MEDS: GABAPENTIN 100 MG CAP PO SCH ×3 (10:32→20:28)
[2021-02-19] MEDS: CYANOCOBALAMIN 500 MCG TAB PO SCH (10:32)
[2021-02-19] MEDS: SPIRONOLACTONE 25 MG TAB PO SCH (10:32)
[2021-02-19] MEDS: busPIRone HCl 5 MG TAB PO SCH ×2 (10:32→20:26)
[2021-02-19] MEDS: MULTIVITAMINS, THERA 1 EACH TAB PO SCH (10:32)
[2021-02-19] MEDS: PANTOPRAZOLE 40 MG TABLET PO SCH ×2 (10:32→20:27)
[2021-02-19] MEDS: lisinopriL 20 MG TAB PO SCH (10:33)
[2021-02-19] MEDS: MAGNESIUM OXIDE 400 MG TAB PO SCH (10:33)
[2021-02-19] MEDS: NON FORMULARY DRUG (Folic Acid [Folic Acid] 0.4 MG Tablet) PO SCH (10:33)
[2021-02-19] MEDS: CHOLECALCIFEROL 25 MCG (1000 IU) TABLET PO SCH (10:33)
[2021-02-19] MEDS: VENLAFAXINE HCL ER 75 MG CAP PO SCH (10:36)
[2021-02-19] MEDS: HEPARIN SODIUM,PORCINE/PF 5,000 UNIT/0.5 ML SYRINGE SQ SCH ×2 (10:36→20:26)
[2021-02-19] MEDS: VITAMIN B COMPLEX PO SCH ×2 (10:39→20:28)
[2021-02-19] MEDS: BRIMONIDINE TARTRATE 0.2% DROPS 5 ML BTL RIGHT EYE SCH ×2 (10:50→20:25)
[2021-02-19 12:08] LABS: Glucose,Whole Blood 128 mg/dL (75-99)
[2021-02-19] MEDS: VITAMIN E (DL,TOCOPHERYL ACET) 400 UNIT (180 MG) CAP PO SCH (12:20)
[2021-02-19] MEDS: ONDANSETRON 4 MG/2 ML VIAL IVP PRN (15:48)
[2021-02-19 16:58] LABS: Glucose,Whole Blood 236 mg/dL (75-99)
--- NOTE | 2021-02-19 17:40 | PN ---
PROGRESS NOTE DATE OF SERVICE: 02/19/2021 I am covering for Dr. Gonsales. HISTORY OF PRESENT ILLNESS: This 70-year-old woman with a past medical history of multiple medical problems admitted with nausea, vomiting, possible gastritis also being evaluated for possible sepsis. The patient had multiple hospital admissions with multiple medical issues previously. No chest pain. No palpitations. No fever. The patient is tolerating clear liquids. PHYSICAL EXAMINATION: Alert and oriented x2. Pulse is 67. Blood pressure 163/86, respirations 16, temperature 98.1, pulse ox 98% on room air. HEENT: Conjunctivae normal. Neck: No JVD. Cardiovascular: S1, S2 muffled. Respiration: Breath sounds diminished in the bases. No rhonchi. No crackles. Abdomen: Soft, obese. Nontender. No mass palpable. Legs are no edema. No swelling. Nervous system: No focal deficits. LABS: WBC 8.3, hemoglobin 11.6. Sodium 136. Glucose noted. ASSESSMENT: 1. Nausea, vomiting, possible acute gastritis. Rule out sepsis, present on admission. 2. Hyponatremia. 3. Accelerated hypertension and hypertensive urgency present on admission. 4. Dehydration, present on admission. 5. Diabetes type 2. 6. Elevated lactic acid, present on admission for sepsis. 7. History of deep vein thrombosis. 8. Fibromyalgia. 9. Hyperlipidemia. 10.Hypertension. 11.History of degenerative joint disease. 12.History of pneumonia. 13.Sleep apnea. 14.History of pyelonephritis and sepsis. 15.History of adrenal insufficiency. 16.History of hyperparathyroidism and surgery. 17.History of pelvis fracture. 18.History of cardiac murmur. 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 20.History of appendectomy. 21.History of back surgery. 22.Obesity with body mass index of 33.9. 23.FULL CODE. RECOMMENDATIONS AND DISCUSSION: Continue current medications, continue with monitoring and symptomatic treatment. Otherwise, the urine cultures show gram-negative bacilli. We will await the final ID of the organism. I would also recommend infectious disease evaluation because of the patient's previous history of multiple infections and as well as multiple allergies. Further recommendations to follow. MMODL / IJN: [id number] /
[2021-02-19] MEDS: ERTAPENEM 1 GM in SODIUM CHLORIDE 0.9% 50 ML IVPB SCH (18:32)
[2021-02-19 20:13] LABS: Glucose,Whole Blood 203 mg/dL (75-99)
[2021-02-19] MEDS: ATORVASTATIN 40 MG TAB PO SCH (20:25)
[2021-02-19] MEDS: INSULIN ASPART (NovoLOG) 100 UNIT/ML VIAL SQ SCH (20:26)
[2021-02-19] MEDS: INSULIN DETEMIR (LEVEMIR) 100 UNIT/ML SYR SQ SCH (20:26)
[2021-02-19] MEDS: METOPROLOL SUCCINATE (ER) 50 MG TAB.ER.24H PO SCH (20:27)
--- NOTE | 2021-02-19 22:49 | P.CONS ---
History of Present Illness - Reason for Consult Consult date: 02/19/21 UTI/Sepsis? Requesting physician: Zeferino Oconnor - Chief Complaint vomiting x few days - History of Present Illness History of present illness : Patient is 70-year female with a past medical history significant for recurrent urinary tract infection in this patient last urine culture positive for ESBL E. coli patient also have multiple antibiotic allergies patient presented to the ER 2 days ago for evaluation of intractable nausea and vomiting in this patient symptom has been going on for 2 days before presentation to the hospital patient denies having any abdominal pain and did not have any diarrhea or constipation patient has some urinary frequency but no burning suprapubic or flank pain patient on presentation to the hospital was afebrile and no fever has been recorded during this admission patient did have a normal white count with lymphopenia kidney function has been normal he did have mildly positive UA with small leukocyte esterase nine WBC fernandez PCR is negative urine is now showing gram-negative bacilli blood culture has been negative chest x-ray was reported to be negative for acute pulmonary process infectious disease was consulted today concern for UTI and sepsis Review of system: CONSTITUTIONAL: Positive for weakness however denies fever. EYES: No complaint. ENT: No complaint. RESPIRATORY: No complaint. CARDIOVASCULAR: No complaint. GENITOURINARY: As per history of present illness. GASTROINTESTINAL: As per history of present illness. MUSCULOSKELETAL: No complaint. INTEGUMENTARY: No complaint. PSYCHOLOGIC: No complaint. ENDOCRINE: No complaint. NEUROLOGIC: No complaint. Past medical history : Reviewed, documented below Past surgical history : Reviewed, documented below Social history: Reviewed, documented below Medications: Reviewed, as documented below GENERAL DESCRIPTION: Elderly female lying in bed, no distress. No tachypnea or accessory muscle of respiration use. HEENT: Shows Pallor , no scleral icterus. Oral mucous membrane is dry. NECK: Trachea central, no thyromegaly. LUNGS: Unlabored breathing. Clear to auscultation anteriorly. No wheeze or crackle. HEART: S1, S2, regular rate and rhythm. ABDOMEN: Soft, no tenderness , guarding or rigidity EXTREMITIES: No edema of feet. SKIN: No rash, no masses palpable. NEUROLOGICAL: The patient is awake, alert, oriented x3, mood and affect normal. LABS AND RADIOLOGY: Reviewed results see below Assessment : 1-Patient presented to hospital with intractable nausea and vomiting of 2 days before presentation to the hospital in this patient who did have a history of recurrent UTI and usually have similar symptoms with these episode did have some urinary frequency but no vomiting or suprapubic pain in this patient last urine culture positive for ESBL E. coli could be dealing with the same pathogen 2-patient with multiple antibiotic allergies that would limit the number of antibiotics safe to use Plan: 1-we will start the patient on Invanz 1 g daily 2-gentle IV fluid 3-check inflammatory markers We will follow on clinical condition and cultures to further adjust medication if needed Thank you for this consultation we will follow the patient along with you 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, DVT R calf in 1976, cardiac murmur, occipital neuraligia, balance issues-has narrowing of vessels "in the back of my head", vertigo, varicosities, states rt shoulder torn rotator cuff History of Any Multi-Drug Resistant Organisms: ESBL, MRSA, VRE Year Discovered:: 11/25/20 ESBL;12/06/19 VRE; 03/10/11 MRSA MDRO Source:: Urine ESBL; Urine-VRE: MRSA 4th Right TOE Past Surgical History: Appendectomy, Back Surgery, Bladder Surgery, Breast Surgery, Cholecystectomy, Heart Catheterization, Hysterectomy, Orthopedic Surgery, Tonsillectomy Additional Past Surgical History / Comment(s): Lumbar fusions, bladder suspension, occipital nerve blocks, 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, R wrist/elbow nerve repair, bone removed R shoulder, 4th toe R foot partial amputation, bilateral feet/bunionectomies, R knee arthroscopies, R orbit decompression with ethmoidectomy and eyelid lift, EGD, colonoscopies, cystocopies, lithotripsy/stents, bilateral breast reduction, bilateral cataract removals, parathyroid surgery - April 2019, pain clinic procedures Past Anesthesia/Blood Transfusion Reactions: No Reported Reaction Additional Past Anesthesia/Blood Transfusion Reaction / Comm: never recieved blood Past Psychological History: Depression Additional Psychological History / Comment(s): Pt resides with her spouse. She uses a walker. She normally drives. She has a nebulizer, cpap, bsc, shower chair, bp machine, dexcom monitor system for her BG and insulin pump. She has [facility]. Smoking Status: Never smoker Past Alcohol Use History: Rare Past Drug Use History: None Reported - Past Family History Father Family Medical History: Coronary Artery Disease (CAD), CVA/TIA, Diabetes Mellitus, Myocardial Infarction ([place]), Pneumonia Additional Family Medical History / Comment(s): Father at the age of 78yrs from [place] and pneumonia. Mother Family Medical History: Cancer, Congestive Heart Failure (CHF) Additional Family Medical History / Comment(s): Mother had uterine cancer. She recently at the age of 96yrs old from [place]. Medications and Allergies Home Medications Medication Instructions Recorded Confirmed Type Cholecalciferol [Vitamin D3 (25 25 mcg PO DAILY 12/01/14 02/17/21 History Mcg = 1000 Iu)] Metoprolol Succinate (ER) [Toprol 50 mg PO HS 07/06/17 02/17/21 History XL] Meclizine [Antivert] 25 mg PO BID PRN 11/26/17 02/17/21 History Aspirin 81 mg PO DAILY #0 07/02/18 02/17/21 Rx Ferrous Sulfate [Iron (65 MG 325 mg PO DAILY 10/08/18 02/17/21 History Elemental)] Folic Acid 0.4 mg PO DAILY 10/08/18 02/17/21 History L.acidoph,Paracasei, B.lactis 1 cap PO BID 10/08/18 02/17/21 History [Probiotic] Melatonin 5 mg PO HS PRN 10/08/18 02/17/21 History Potassium 99 mg PO DAILY 10/08/18 02/17/21 History Thiamine [Vitamin B-1] 100 mg PO DAILY 10/08/18 02/17/21 History Vitamin B-Complex Drops 1 ml PO BID 10/08/18 02/17/21 History Atorvastatin [Lipitor] 40 mg PO HS #30 tab 11/16/18 02/17/21 Rx Venlafaxine HCl [Effexor XR] 75 mg PO DAILY 11/08/19 02/17/21 History Magnesium Oxide [Mag-Ox] 400 mg PO DAILY 12/06/19 02/17/21 History Gabapentin [Neurontin] 100 mg PO TID #9 cap 03/24/20 02/17/21 Rx HYDROcodone/APAP 10-325MG [[place] 1 tab PO QID PRN 04/16/20 02/17/21 History 10-325] C,E,Zinc,Copper 11/Kwtnp3v/Lut 1 cap PO DAILY 06/25/20 02/17/21 History [Ocuvite Adult 50 Plus Softgel] Cyanocobalamin (Vitamin B-12) 1,000 mcg PO DAILY 06/25/20 02/17/21 History [Vitamin B-12] Spironolactone 50 mg PO DAILY 06/25/20 02/17/21 History Vitamin E 400 unit PO DAILY 06/25/20 02/17/21 History lisinopriL 40 mg PO DAILY 06/25/20 02/17/21 History Brimonidine Tartrate [Alphagan P 1 drop RIGHT EYE BID 11/26/20 02/17/21 History 0.2% Ophth Soln] Butalb/APAP/Caff 50-325-40Mg 1 tab PO TID PRN 11/26/20 02/17/21 History [Fioricet 50-325-40] Cholestyramine (with Sugar) 4 gm PO BID 11/26/20 02/17/21 History [Questran Packet] Cranberry [id number] Cap 1 cap PO BID 11/26/20 02/17/21 History Glucagon [Gvoke Pfs 1-Pack Syringe] 1 mg SQ ONCE PRN 11/26/20 02/17/21 History Insulin Aspart [NovoLOG Flexpen] 11 units SQ AC-BRKFST 11/26/20 02/17/21 History Insulin Aspart [NovoLOG Flexpen] 20 units SQ AC-LUNCH 11/26/20 02/17/21 History Insulin Aspart [NovoLOG Flexpen] 26 unit SQ AC-SUPPER 11/26/20 02/17/21 History Insulin Aspart [NovoLOG Flexpen] See Protocol SQ AC-TID PRN 11/26/20 02/17/21 History Metoclopramide HCl [Reglan] 5 mg PO TID PRN 11/26/20 02/17/21 History Pantoprazole Sodium [Protonix] 40 mg PO DAILY 11/26/20 02/17/21 History Cephalexin [Keflex] 250 mg PO HS 12/11/20 02/17/21 History Insulin Glargine,Hum.rec.anlog 30 unit SQ HS 12/11/20 02/17/21 History [Lantus Solostar Pen] Hydrocortisone [Cortef] 5 mg PO HS #0 12/16/20 02/17/21 Rx Hydrocortisone [Cortef] 10 mg PO DAILY@1200 #0 12/16/20 02/17/21 Rx Hydrocortisone [Cortef] 15 mg PO DAILY #0 12/16/20 02/17/21 Rx busPIRone HCl [Buspar] 5 mg PO BID 02/04/21 02/17/21 History Multivitamins, Thera [Multivitamin 1 tab PO DAILY 02/17/21 02/17/21 History (formulary)] Nystatin 1 applic TOPICAL BID PRN 02/17/21 02/17/21 History Nystatin 100,000 Unit/gm Powd 1 applic TOPICAL BID PRN 02/17/21 02/17/21 History [Mycostatin Powder] Allergies Allergy/AdvReac Type Severity Reaction Status Date / Time butorphanol tartrate Allergy BLISTERS Verified 02/17/21 13:34 [From Stadol] IN MOUTH ceftriaxone [From Rocephin] Allergy Unknown Verified 02/17/21 13:34 clarithromycin [From Biaxin] Allergy Rash/Hives Verified 02/17/21 13:34 clindamycin Allergy Unknown Verified 02/17/21 13:34 codeine Allergy Rash/Hives Verified 02/17/21 13:34 ergotamine tartrate Allergy Unknown Verified 02/17/21 13:34 [From Cafergot] erythromycin base Allergy RASH, GI Verified 02/17/21 13:34 [From E-Mycin] SYMPTOMS ketorolac tromethamine Allergy Rash/Hives Verified 02/17/21 13:34 [From Toradol] liraglutide [From Victoza] Allergy Rash/Hives Verified 02/17/21 13:34 morphine Allergy Rash/Hives Verified 02/17/21 13:34 Penicillins Allergy Rash/Hives Verified 02/17/21 13:34 pentazocine lactate Allergy SEVERE Verified 02/17/21 13:34 [From Talwin] BLISTERS IN MOUTH pregabalin [From Lyrica] Allergy Rash/Hives Verified 02/17/21 13:34 propoxyphene HCl Allergy Rash/Hives Verified 02/17/21 13:34 [From Darvon] Sulfa (Sulfonamide Allergy Rash/Hives Verified 02/17/21 13:34 Antibiotics) tramadol Allergy Unknown Verified 02/17/21 13:34 monosodium glutamate [MSG] AdvReac Nausea & Verified 02/17/21 13:34 Vomiting nalbuphine HCl [From Nubain] AdvReac Nausea & Verified 02/17/21 13:34 Vomiting Physical Exam Vitals: Vital Signs Temp Pulse Resp BP Pulse Ox 02/19/21 08:00 16 02/19/21 07:00 98.1 F 67 16 163/86 96 02/19/21 02:41 98.8 F 63 16 163/75 95 02/18/21 20:00 75 18 02/18/21 19:29 98.5 F 99 18 117/73 93 L 02/18/21 18:26 161/79 02/18/21 15:07 98.1 F 75 18 167/78 94 L Intake and Output 02/18/21 02/19/21 02/19/21 22:59 06:59 14:59 Intake Total 900 Output Total 2 400 Balance -2 900 -400 Intake: Intake, IV Titration 900 Amount Sodium Chloride 0.9% 1, 900 000 ml @ 50 mls/hr IV . Q20H [facility] Rx#:[id number] Output: Urine 1 400 Stool 1 Other: Voiding Method Bedside Commode Bedside Commode # Voids 2 3 # Bowel Movements 1 Results CBC & Chem 7: 02/19/21 06:33 02/19/21 06:33 Labs: Abnormal Lab Results - Last 24 Hours (Table) 02/18/21 02/18/21 02/19/21 Range/Units 17:28 20:58 06:33 RBC 3.82 L (4.10-5.20) X 10*6/uL Hgb 11.6 L (12.0-15.0) g/dL Hct 35.6 L (37.2-46.3) % RDW 14.8 H (11.5-14.5) % Immature Gran # 0.05 H (0.00-0.04) X 10*3/uL Eosinophils # 0.01 L (0.04-0.35) X 10*3/uL Sodium (137-145) mmol/L Glucose (74-99) mg/dL POC Glucose (mg/dL) 157 H 281 H (75-99) mg/dL 02/19/21 02/19/21 02/19/21 Range/Units 06:33 07:23 12:07 RBC (4.10-5.20) X 10*6/uL Hgb (12.0-15.0) g/dL Hct (37.2-46.3) % RDW (11.5-14.5) % Immature Gran # (0.00-0.04) X 10*3/uL Eosinophils # (0.04-0.35) X 10*3/uL Sodium 136 L (137-145) mmol/L Glucose 154 H (74-99) mg/dL POC Glucose (mg/dL) 149 H 128 H (75-99) mg/dL Microbiology - Last 24 Hours (Table) 02/17/21 20:20 Urine Culture - Preliminary Urine,Clean Catch Gram Neg Bacilli 02/17/21 16:51 Blood Culture - Preliminary Blood No Growth after 24 hours
[2021-02-20] MEDS: HYDROmorphone 0.5 MG/0.5 ML SYRINGE IVP PRN ×6 (03:30→21:09)
[2021-02-20] MEDS: HYDROCORTISONE SUCCINATE 100 MG/2 ML VIAL IV SCH ×3 (06:14→18:03)
[2021-02-20] MEDS: lisinopriL 20 MG TAB PO SCH (07:29)
[2021-02-20] MEDS: SPIRONOLACTONE 25 MG TAB PO SCH (07:30)
[2021-02-20 07:34] LABS: Glucose,Whole Blood 104 mg/dL (75-99)
[2021-02-20] MEDS: INSULIN ASPART (NovoLOG) 100 UNIT/ML VIAL SQ SCH ×4 (07:56→21:08)
[2021-02-20] MEDS: CHOLECALCIFEROL 25 MCG (1000 IU) TABLET PO SCH (08:21)
[2021-02-20] MEDS: HEPARIN SODIUM,PORCINE/PF 5,000 UNIT/0.5 ML SYRINGE SQ SCH ×2 (08:21→21:08)
[2021-02-20] MEDS: CYANOCOBALAMIN 500 MCG TAB PO SCH (08:21)
[2021-02-20] MEDS: PANTOPRAZOLE 40 MG TABLET PO SCH ×2 (08:21→21:09)
[2021-02-20] MEDS: busPIRone HCl 5 MG TAB PO SCH ×2 (08:21→21:07)
[2021-02-20] MEDS: MULTIVITAMINS, THERA 1 EACH TAB PO SCH (08:21)
[2021-02-20] MEDS: MAGNESIUM OXIDE 400 MG TAB PO SCH (08:21)
[2021-02-20] MEDS: GABAPENTIN 100 MG CAP PO SCH ×3 (08:21→21:09)
[2021-02-20] MEDS: BRIMONIDINE TARTRATE 0.2% DROPS 5 ML BTL RIGHT EYE SCH ×2 (08:22→21:06)
[2021-02-20] MEDS: NON FORMULARY DRUG (Folic Acid [Folic Acid] 0.4 MG Tablet) PO SCH (08:23)
[2021-02-20] MEDS: ERTAPENEM 1 GM in SODIUM CHLORIDE 0.9% 50 ML IVPB SCH (08:23)
[2021-02-20] MEDS: VENLAFAXINE HCL ER 75 MG CAP PO SCH (08:23)
[2021-02-20] MEDS: VITAMIN B COMPLEX PO SCH ×2 (08:24→21:09)
[2021-02-20] MEDS: VITAMIN E (DL,TOCOPHERYL ACET) 400 UNIT (180 MG) CAP PO SCH (08:24)
[2021-02-20 08:49] LABS: Basophils # (A) 0 X 10*3/uL (0.00-0.10); Basophils % (A) 0 %; Eosinophils # (A) 0 X 10*3/uL (0.04-0.35); Eosinophils % (A) 0 %; HCT 36.4 % (37.2-46.3); HGB 11.7 g/dL (12.0-15.0); Lymphocytes # (A) 1.19 X 10*3/uL (0.90-5.00); Lymphocytes % (A) 10.6 %; MCH 29.8 pg (27.0-32.0); MCHC 32.1 g/dL (32.0-37.0); MCV 92.9 fL (80.0-97.0); Mean Platelet Volume 10.4 fL (9.5-12.2); Monocytes # (A) 0.68 X 10*3/uL (0.20-1.00); Monocytes % (A) 6.1 %; Neutrophils % (A) 82.1 %; Platelet Count 218 X 10*3/uL (140-440); RBC 3.92 X 10*6/uL (4.10-5.20); RDW 14.7 % (11.5-14.5)
[2021-02-20 12:12] LABS: Glucose,Whole Blood 117 mg/dL (75-99)
[2021-02-20] MEDS: SODIUM CHLORIDE 0.9% 1,000 ML IV SCH (12:25)
[2021-02-20] MEDS: METOCLOPRAMIDE 5 MG/ML 2 ML VIAL IVP PRN (13:24)
[2021-02-20 16:16] LABS: Hemoglobin A1C 7.8 % (4.0-6.0)
[2021-02-20 17:38] LABS: Glucose,Whole Blood 207 mg/dL (75-99)
[2021-02-20] MEDS: CHOLESTYRAMINE (WITH SUGAR) 4 GM PACKET PO SCH (18:03)
--- NOTE | 2021-02-20 18:49 | PN ---
PROGRESS NOTE DATE OF SERVICE: 02/20/2021 This 70-year-old woman was admitted with multiple medical problems, is being symptomatically treated. The patient is being also evaluated for any possibility of UTI with sepsis. The urine culture showed E coli which is poly sensitive at this time. No chest pain. No palpitations. No fever. PHYSICAL EXAMINATION: Alert and oriented x3. Pulse is 80, blood pressure 150/70, respiration 16, temperature 98.2, pulse ox 92% on room air. HEENT: Conjunctivae normal. Oral mucosa moist. NECK: No jugular venous distention. No lymph node enlargement. CARDIOVASCULAR: S1, S2, muffled. No S3, no S4, RESPIRATORY: Diminished breath sounds at the bases. ABDOMEN: Soft, obese, nontender. LEGS: No edema, no swelling. NERVOUS SYSTEM: No focal deficits. LABS: At this time shows WBC 7.7, hemoglobin 11.7. Other labs reviewed. ASSESSMENT: 1. Nausea, vomiting, possible acute gastritis. Rule out sepsis or urinary tract infection, present on admission. 2. Escherichia coli poly sensitive grown from the culture at this time. 3. Hyponatremia. 4. Accelerated hypertension and hypertensive urgency, present on admission. 5. Dehydration, present on admission. 6. Diabetes mellitus type 2. 7. Elevated lactic acid, present on admission, rule out sepsis. 8. History of deep vein thrombosis. 9. Fibromyalgia. 10.Hypertension. 11.Hyperlipidemia. 12.History of DJD. 13.History pneumonia. 14.History of sleep apnea. 15.History of pyelonephritis and sepsis. 16.History of adrenal insufficiency. 17.History of hyperparathyroidism and surgery. 18.History of pelvis fracture. 19.History of cardiac murmur. 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 21.History of appendectomy. 22.History of back surgery. 23.Obesity with body mass index of 33.9. 24.FULL CODE. RECOMMENDATIONS AND DISCUSSION: I recommend to continue current management and symptomatic treatment. Otherwise, continue the pain medications symptomatically. I would recommend cut down the dose of hydrocortisone and also await Infectious Disease input from Dr. Osman regarding the need for any antibiotics at this time. Please note, ESBL E coli is not grown from the culture at this time. Prognosis guarded because of multiple complex medical issues. Further recommendations to follow. MMODL / IJN: [id number] /
[2021-02-20 20:32] LABS: Glucose,Whole Blood 242 mg/dL (75-99)
--- NOTE | 2021-02-20 20:40 | PN ---
PROGRESS NOTE DATE OF SERVICE: 02/20/2021 REASON FOR FOLLOWUP: Urinary tract infection with multiple antibiotic allergies. INTERVAL HISTORY: The patient is afebrile. The patient is feeling better today, breathing comfortably. No vomiting. Still having diarrhea. No blood or mucus in the stool. No chest pain, shortness of breath or cough. PHYSICAL EXAMINATION: Blood pressure 150/78 with a pulse of 80, temperature 98.3. She is 92% on room air. General description is an elderly female lying in bed in no distress. Respiratory system: Unlabored breathing, clear to auscultation anteriorly. Heart S1, S2. Regular rate and rhythm. Abdomen soft, no tenderness. LAB DATA: Hemoglobin is ( ), white count 11.20. Creatinine 0.4. DIAGNOSTIC IMPRESSION: Patient admitted to the hospital with acute nausea, vomiting, diarrhea and concern for possible viral gastritis in this patient who has a history of recurrent UTI, now with urine showing an E coli sensitive pathogen. However, the patient does have multiple antibiotic allergies including to the PENICILLIN, CEPHALOSPORIN, BACTRIM and cannot use Cipro because of the SSRI the patient is on. We will keep the patient on Invanz only and continue supportive care. MMODL / IJN: [id number] /
[2021-02-20] MEDS: ATORVASTATIN 40 MG TAB PO SCH (21:05)
[2021-02-20] MEDS: INSULIN DETEMIR (LEVEMIR) 100 UNIT/ML SYR SQ SCH (21:09)
[2021-02-20] MEDS: METOPROLOL SUCCINATE (ER) 50 MG TAB.ER.24H PO SCH (21:09)
[2021-02-21] MEDS: HYDROmorphone 0.5 MG/0.5 ML SYRINGE IVP PRN ×7 (00:47→21:11)
[2021-02-21] MEDS: HYDROCORTISONE SUCCINATE 100 MG/2 ML VIAL IV SCH ×5 (00:47→23:27)
[2021-02-21 08:00] LABS: Glucose,Whole Blood 183 mg/dL (75-99)
[2021-02-21] MEDS: ERTAPENEM 1 GM in SODIUM CHLORIDE 0.9% 50 ML IVPB SCH (08:17)
[2021-02-21] MEDS: SPIRONOLACTONE 25 MG TAB PO SCH (08:18)
[2021-02-21] MEDS: CHOLECALCIFEROL 25 MCG (1000 IU) TABLET PO SCH (08:18)
[2021-02-21] MEDS: INSULIN ASPART (NovoLOG) 100 UNIT/ML VIAL SQ SCH ×5 (08:18→21:11)
[2021-02-21] MEDS: PANTOPRAZOLE 40 MG TABLET PO SCH ×2 (08:18→21:12)
[2021-02-21] MEDS: CYANOCOBALAMIN 500 MCG TAB PO SCH (08:18)
[2021-02-21] MEDS: MULTIVITAMINS, THERA 1 EACH TAB PO SCH (08:18)
[2021-02-21] MEDS: busPIRone HCl 5 MG TAB PO SCH ×2 (08:18→21:12)
[2021-02-21] MEDS: VITAMIN B COMPLEX PO SCH ×2 (08:19→20:01)
[2021-02-21] MEDS: VITAMIN E (DL,TOCOPHERYL ACET) 400 UNIT (180 MG) CAP PO SCH (08:19)
[2021-02-21] MEDS: VENLAFAXINE HCL ER 75 MG CAP PO SCH (08:19)
[2021-02-21] MEDS: NON FORMULARY DRUG (Folic Acid [Folic Acid] 0.4 MG Tablet) PO SCH (08:21)
[2021-02-21] MEDS: BRIMONIDINE TARTRATE 0.2% DROPS 5 ML BTL RIGHT EYE SCH ×2 (08:28→21:12)
[2021-02-21] MEDS: HEPARIN SODIUM,PORCINE/PF 5,000 UNIT/0.5 ML SYRINGE SQ SCH ×2 (08:28→21:11)
[2021-02-21] MEDS: lisinopriL 20 MG TAB PO SCH (08:28)
[2021-02-21] MEDS: GABAPENTIN 100 MG CAP PO SCH ×3 (08:28→21:12)
[2021-02-21] MEDS: MAGNESIUM OXIDE 400 MG TAB PO SCH (08:28)
[2021-02-21] MEDS: SODIUM CHLORIDE 0.9% 1,000 ML IV SCH (10:44)
[2021-02-21] MEDS: CHOLESTYRAMINE (WITH SUGAR) 4 GM PACKET PO SCH ×2 (10:46→17:37)
[2021-02-21] MEDS: ONDANSETRON 4 MG/2 ML VIAL IVP PRN (11:52)
[2021-02-21 12:06] LABS: Glucose,Whole Blood 236 mg/dL (75-99)
[2021-02-21 16:23] LABS: Glucose,Whole Blood 219 mg/dL (75-99)
[2021-02-21 20:31] LABS: Glucose,Whole Blood 268 mg/dL (75-99)
[2021-02-21] MEDS: INSULIN DETEMIR (LEVEMIR) 100 UNIT/ML SYR SQ SCH ×2 (21:00→21:13)
[2021-02-21] MEDS: ATORVASTATIN 40 MG TAB PO SCH (21:12)
[2021-02-21] MEDS: METOPROLOL SUCCINATE (ER) 50 MG TAB.ER.24H PO SCH (21:12)
--- NOTE | 2021-02-22 00:34 | PN ---
PROGRESS NOTE DATE OF SERVICE: 02/21/2021 REASON FOR FOLLOWUP: Urinary tract infection. INTERVAL HISTORY: The patient is afebrile. The patient is breathing comfortably. Did mention feeling slightly nauseated today but no vomiting and diarrhea has slowed down. No chest pain, shortness of breath or cough. PHYSICAL EXAMINATION: Blood pressure 162/84, pulse of 77, temperature 98.7. She is 97% on room air. General description is an elderly female lying in bed in no distress. Respiratory system: Unlabored breathing, clear to auscultation anteriorly. Heart S1, S2. Regular rate and rhythm. Abdomen soft, no tenderness. LABS: No new labs have been obtained today. DIAGNOSTIC IMPRESSION AND PLAN: Patient with an E coli urinary tract infection currently on Invanz because of multiple antibiotic allergies. However, she will finish therapy with a short course of oral Macrobid and close outpatient followup. MMODL / IJN: [id number] /
[2021-02-22] MEDS: HYDROmorphone 0.5 MG/0.5 ML SYRINGE IVP PRN ×7 (00:36→22:36)
[2021-02-22] MEDS: SODIUM CHLORIDE 0.9% 1,000 ML IV SCH (05:25)
[2021-02-22] MEDS: HYDROCORTISONE SUCCINATE 100 MG/2 ML VIAL IV SCH ×4 (05:28→23:06)
[2021-02-22 07:55] LABS: Glucose,Whole Blood 231 mg/dL (75-99)
[2021-02-22] MEDS: ERTAPENEM 1 GM in SODIUM CHLORIDE 0.9% 50 ML IVPB SCH (08:43)
[2021-02-22] MEDS: MAGNESIUM OXIDE 400 MG TAB PO SCH (08:44)
[2021-02-22] MEDS: CHOLESTYRAMINE (WITH SUGAR) 4 GM PACKET PO SCH ×2 (08:44→17:57)
[2021-02-22] MEDS: VITAMIN E (DL,TOCOPHERYL ACET) 400 UNIT (180 MG) CAP PO SCH (08:44)
[2021-02-22] MEDS: CHOLECALCIFEROL 25 MCG (1000 IU) TABLET PO SCH (08:44)
[2021-02-22] MEDS: BRIMONIDINE TARTRATE 0.2% DROPS 5 ML BTL RIGHT EYE SCH ×2 (08:44→22:35)
[2021-02-22] MEDS: ONDANSETRON 4 MG/2 ML VIAL IVP PRN (08:44)
[2021-02-22] MEDS: VENLAFAXINE HCL ER 75 MG CAP PO SCH (08:44)
[2021-02-22] MEDS: CYANOCOBALAMIN 500 MCG TAB PO SCH (08:44)
[2021-02-22] MEDS: MULTIVITAMINS, THERA 1 EACH TAB PO SCH (08:44)
[2021-02-22] MEDS: lisinopriL 20 MG TAB PO SCH (08:44)
[2021-02-22] MEDS: GABAPENTIN 100 MG CAP PO SCH ×3 (08:44→23:06)
[2021-02-22] MEDS: SPIRONOLACTONE 25 MG TAB PO SCH (08:45)
[2021-02-22] MEDS: INSULIN ASPART (NovoLOG) 100 UNIT/ML VIAL SQ SCH ×4 (08:45→22:37)
[2021-02-22] MEDS: busPIRone HCl 5 MG TAB PO SCH ×2 (08:45→22:36)
[2021-02-22] MEDS: HEPARIN SODIUM,PORCINE/PF 5,000 UNIT/0.5 ML SYRINGE SQ SCH ×2 (08:45→22:36)
[2021-02-22] MEDS: VITAMIN B COMPLEX PO SCH ×2 (08:46→22:35)
[2021-02-22] MEDS: NON FORMULARY DRUG (Folic Acid [Folic Acid] 0.4 MG Tablet) PO SCH (08:46)
[2021-02-22] MEDS: PANTOPRAZOLE 40 MG TABLET PO SCH ×2 (08:54→22:36)
[2021-02-22 12:21] LABS: Glucose,Whole Blood 226 mg/dL (75-99)
[2021-02-22 17:34] LABS: Glucose,Whole Blood 272 mg/dL (75-99)
[2021-02-22 21:14] LABS: Glucose,Whole Blood 286 mg/dL (75-99)
--- NOTE | 2021-02-22 21:34 | PN ---
PROGRESS NOTE DATE OF SERVICE: 02/22/2021 REASON FOR FOLLOWUP: E coli urinary tract infection. INTERVAL HISTORY: The patient is afebrile. The patient is breathing comfortably. The patient denies having any chest pain, shortness of breath or cough. No abdominal pain or diarrhea. PHYSICAL EXAMINATION: Blood pressure 144/72 with a pulse of 70, temperature 98.5. She is 95% on room air. GENERAL DESCRIPTION: General description is an elderly female lying in bed in no distress. RESPIRATORY SYSTEM: Unlabored breathing. Clear to auscultation anteriorly. HEART: S1, S2. Regular rate and rhythm. ABDOMEN: Soft. No tenderness. LABS: No new labs have been obtained today. DIAGNOSTIC IMPRESSION AND PLAN: Patient with an Escherichia coli urinary tract infection with a history of recurrent urinary tract infections. She does have MULTIPLE ANTIBIOTIC ALLERGIES. The patient Clinically improved to Invanz. Transition to a short course of oral Macrobid for a week on discharge. Continue with supportive care. MMODL / IJN: [id number] / MTDD
[2021-02-22] MEDS: ATORVASTATIN 40 MG TAB PO SCH (22:36)
[2021-02-22] MEDS: METOPROLOL SUCCINATE (ER) 50 MG TAB.ER.24H PO SCH (22:36)
[2021-02-22] MEDS: INSULIN DETEMIR (LEVEMIR) 100 UNIT/ML SYR SQ SCH (22:37)
--- NOTE | 2021-02-22 22:43 | P.PN ---
Subjective Progress Note Date: 02/21/21 Patient is a 75-year-old female was admitted to the hospital due to multiple medical problems and is being currently treated for urinary tract infection. Urine culture showed E. coli. And is currently Invanz due to history of multiple antibiotic allergies.. 02/21/2021 Patient is lying in the bed and complains of generalized pain. Also complains of nausea and requesting Zofran. Did not have involvement today. No complaints of chest pain or shortness of. No dysuria or hematuria. Continued on IV an tibiotics in the form of Invanz. Patient has been afebrile.. Current medications reviewed. Objective - Vital Signs Vital signs: Vital Signs Temp 98.2 F 02/21/21 14:20 Pulse 64 02/21/21 14:20 Resp 16 02/21/21 14:20 BP 168/92 02/21/21 14:20 Pulse Ox 95 02/21/21 14:20 Intake & Output 02/20/21 02/21/21 02/21/21 18:59 06:59 18:59 Intake Total 400 620 Output Total 3 1000 Balance 400 -3 -380 Intake: Intake, IV Titration 400 500 Amount Ertapenem 1 gm In Sodium 400 100 Chloride 0.9% 50 ml @ 100 mls/hr IVPB DAILY [facility] Rx #:[id number] Sodium Chloride 0.9% 1, 400 000 ml @ 50 mls/hr IV . Q20H [facility] Rx#:[id number] Oral 120 Output: Urine 1000 Stool 3 Other: Voiding Method Bedside Commode # Voids 2 0 - Exam PHYSICAL EXAMINATION: Patient is lying in the bed comfortably, no acute distress, awake alert and oriented.. HEENT: Normocephalic. Neck is supple. Pupils reactive. Nostrils clear. Oral cavity is moist. Neck reveals no JVD, carotid bruits, or thyromegaly. CHEST EXAMINATION: Trachea is central. Symmetrical expansion. Lung hinds clear to auscultation and percussion. CARDIAC: Normal S1, S2 with no gallops. No murmurs ABDOMEN: Soft. Bowel sounds normal. No organomegaly. No abdominal bruits. Extremities: reveal no edema. No clubbing or cyanosis Neurologically awake, alert, oriented x3 with well-coordinated movements. No focal deficits noted Skin: No rash or skin lesions. Psychiatric: Coperative. Nonsuicidal Musculoskeletal: No joint swelling or deformity. Normal range of motion. - Labs CBC & Chem 7: 02/20/21 06:04 02/19/21 06:33 Labs: Abnormal Lab Results - Last 24 Hours (Table) 02/20/21 02/21/21 02/21/21 Range/Units 20:30 07:50 12:03 POC Glucose (mg/dL) 242 H 183 H 236 H (75-99) mg/dL 02/21/21 Range/Units 16:14 POC Glucose (mg/dL) 219 H (75-99) mg/dL Microbiology - Last 24 Hours (Table) 02/17/21 16:51 Blood Culture - Preliminary Blood No Growth after 72 hours Assessment and Plan Assessment: Nausea vomiting secondary to possible acute gastritis. Urinary tract infection with E. coli. Multiple antibiotic allergies. Pansensitive. 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 Increase oral intake and advance diet as tolerated. Patient is being current on antibiotics involve Invanz due to multiple antibiotic allergies. Urine culture is growing E. coli. Patient has multiple antibiotic allergies. ID is on board. Continue with Levemir and insulin sliding scale and follow-up closely. Time with Patient: Greater than 30
--- NOTE | 2021-02-22 22:45 | P.PN ---
Subjective Progress Note Date: 02/22/21 Patient is a 75-year-old female was admitted to the hospital due to multiple medical problems and is being currently treated for urinary tract infection. Urine culture showed E. coli. And is currently Invanz due to history of multiple antibiotic allergies.. 02/21/2021 Patient is lying in the bed and complains of generalized pain. Also complains of nausea and requesting Zofran. Did not have involvement today. No complaints of chest pain or shortness of. No dysuria or hematuria. Continued on IV an tibiotics in the form of Invanz. Patient has been afebrile.. 02/22/2021 Patient is currently resting in the bed. Did have almond today. Nausea did improve slightly but still requiring Zofran as needed. Continue on pain management. Patient has been afebrile. No headache or dizziness or lightheadedness. Anticipate discharge in next 24 hours antibiotics as per ID recommendations. Current medications reviewed. Objective - Vital Signs Vital signs: Vital Signs Temp 98.5 F 02/22/21 15:00 Pulse 70 02/22/21 15:00 Resp 18 02/22/21 15:00 BP 144/72 02/22/21 15:00 Pulse Ox 95 02/22/21 15:00 Intake & Output 02/22/21 02/22/21 02/23/21 06:59 18:59 06:59 Intake Total 400 Output Total 2 Balance -2 400 Intake: Intake, IV Titration 400 Amount Sodium Chloride 0.9% 1, 400 000 ml @ 50 mls/hr IV . Q20H [facility] Rx#:[id number] Output: Stool 2 Other: Voiding Method Bedside Commode # Voids 2 2 # Bowel Movements 1 - Exam PHYSICAL EXAMINATION: Patient is lying in the bed comfortably, no acute distress, awake alert and oriented.. HEENT: Normocephalic. Neck is supple. Pupils reactive. Nostrils clear. Oral cavity is moist. Neck reveals no JVD, carotid bruits, or thyromegaly. CHEST EXAMINATION: Trachea is central. Symmetrical expansion. Lung hinds clear to auscultation and percussion. CARDIAC: Normal S1, S2 with no gallops. No murmurs ABDOMEN: Soft. Bowel sounds normal. No organomegaly. No abdominal bruits. Extremities: reveal no edema. No clubbing or cyanosis Neurologically awake, alert, oriented x3 with well-coordinated movements. No focal deficits noted Skin: No rash or skin lesions. Psychiatric: Coperative. Nonsuicidal Musculoskeletal: No joint swelling or deformity. Normal range of motion. - Labs CBC & Chem 7: 02/20/21 06:04 02/19/21 06:33 Labs: Abnormal Lab Results - Last 24 Hours (Table) 02/22/21 02/22/21 02/22/21 Range/Units 07:54 12:20 17:32 POC Glucose (mg/dL) 231 H 226 H 272 H (75-99) mg/dL 02/22/21 Range/Units 21:12 POC Glucose (mg/dL) 286 H (75-99) mg/dL Microbiology - Last 24 Hours (Table) 02/17/21 16:51 Blood Culture - Preliminary Blood No Growth after 120 hours Assessment and Plan Assessment: Nausea vomiting secondary to possible acute gastritis. Urinary tract infection with E. coli. Multiple antibiotic allergies. Pansensitive. 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 Increase oral intake and advance diet as tolerated. Patient is being current on antibiotics involve Invanz due to multiple antibiotic allergies. Urine culture is growing E. coli. Patient has multiple antibiotic allergies. ID is on board. Continue with Levemir and insulin sliding scale and follow-up closely.
[2021-02-22 22:48] VITALS: RESP 16
[2021-02-23 00:21] LABS: Glucose,Whole Blood 349 mg/dL (75-99)
[2021-02-23] MEDS: SODIUM CHLORIDE 0.9% 1,000 ML IV SCH (00:39)
[2021-02-23] MEDS: HYDROmorphone 0.5 MG/0.5 ML SYRINGE IVP PRN ×3 (03:27→12:27)
[2021-02-23] MEDS: HYDROCORTISONE SUCCINATE 100 MG/2 ML VIAL IV SCH ×2 (05:47→12:23)
[2021-02-23 07:18] LABS: Glucose,Whole Blood 144 mg/dL (75-99)
[2021-02-23 08:36] VITALS: BP 176/79; TEMP 98.6
[2021-02-23] MEDS: VENLAFAXINE HCL ER 75 MG CAP PO SCH (09:00)
[2021-02-23] MEDS: SPIRONOLACTONE 25 MG TAB PO SCH (09:01)
[2021-02-23] MEDS: lisinopriL 20 MG TAB PO SCH (09:01)
[2021-02-23] MEDS: CHOLECALCIFEROL 25 MCG (1000 IU) TABLET PO SCH (09:01)
[2021-02-23] MEDS: PANTOPRAZOLE 40 MG TABLET PO SCH (09:01)
[2021-02-23] MEDS: busPIRone HCl 5 MG TAB PO SCH (09:01)
[2021-02-23] MEDS: CYANOCOBALAMIN 500 MCG TAB PO SCH (09:01)
[2021-02-23] MEDS: MAGNESIUM OXIDE 400 MG TAB PO SCH (09:02)
[2021-02-23] MEDS: INSULIN ASPART (NovoLOG) 100 UNIT/ML VIAL SQ SCH ×2 (09:02→12:31)
[2021-02-23] MEDS: GABAPENTIN 100 MG CAP PO SCH (09:02)
[2021-02-23] MEDS: MULTIVITAMINS, THERA 1 EACH TAB PO SCH (09:02)
[2021-02-23] MEDS: HEPARIN SODIUM,PORCINE/PF 5,000 UNIT/0.5 ML SYRINGE SQ SCH (09:02)
[2021-02-23] MEDS: VITAMIN E (DL,TOCOPHERYL ACET) 400 UNIT (180 MG) CAP PO SCH (09:03)
[2021-02-23] MEDS: BRIMONIDINE TARTRATE 0.2% DROPS 5 ML BTL RIGHT EYE SCH (09:04)
[2021-02-23] MEDS: CHOLESTYRAMINE (WITH SUGAR) 4 GM PACKET PO SCH (09:04)
[2021-02-23] MEDS: VITAMIN B COMPLEX PO SCH (09:05)
[2021-02-23 09:20] LABS: Basophils # (A) 0.02 X 10*3/uL (0.00-0.10); Basophils % (A) 0.3 %; Eosinophils % (A) 1.5 %; HGB 11.2 g/dL (12.0-15.0); Lymphocytes % (A) 20.1 %; MCH 29.6 pg (27.0-32.0); MCV 92.6 fL (80.0-97.0); Mean Platelet Volume 11.2 fL (9.5-12.2); Monocytes # (A) 0.67 X 10*3/uL (0.20-1.00); Monocytes % (A) 10.3 %; Neutrophils # (A) 4.27 X 10*3/uL (1.80-7.70); Neutrophils % (A) 65.9 %; Platelet Count 187 X 10*3/uL (140-440); RBC 3.78 X 10*6/uL (4.10-5.20); RDW 14.9 % (11.5-14.5); WBC 6.48 X 10*3/uL (4.50-10.00)
[2021-02-23] MEDS: NON FORMULARY DRUG (Folic Acid [Folic Acid] 0.4 MG Tablet) PO SCH (09:24)
[2021-02-23] MEDS: ERTAPENEM 1 GM in SODIUM CHLORIDE 0.9% 50 ML IVPB SCH (09:24)
[2021-02-23 09:43] VITALS: PULSE 71
[2021-02-23 11:50] LABS: African American GFR (CKD) 106.3 (60.0-200.0); Anion Gap 8.7 mmol/L (4.00-12.00); Calcium 8.4 mg/dL (8.7-10.3); Carbon Dioxide 30.3 mmol/L (21.6-31.8); Non-African American GFR(CKD) 91.7 (60.0-200.0); Potassium 3.8 mmol/L (3.5-5.5)
[2021-02-23 12:29] LABS: Glucose,Whole Blood 175 mg/dL (75-99)
--- NOTE | 2021-02-25 11:20 | CDI ---
Documentation Clarification Form Date: 02/25/21 From: Yumiko Garibay Admit Date: 02/18/2021 02:08:00 PM Patient Name: Melissa Pena Visit Number: [id number] Discharge Date: 02/23/2021 12:51:00 PM ATTENTION: The Clinical Documentation Specialists (CDI) and [facility] Coding Staff appreciate your assistance in clarifying documentation. Please respond to the clarification below the line at the bottom and electronically sign. The CDI & [facility] Coding staff will review the response and follow-up if needed. Please note: Queries are made part of the Legal Health Record. If you have any questions, please contact the author of this message via ITS. Dr. Andrew Gonsales, The patient presented with the following clinical indicators. Additional clarification regarding the etiology/cause of the clinical indicators is requested. History/Risk Factors: HX of pyelonephritis and sepsis, DM, HTN Clinical Indicators: Admitted with weakness with nausea and vomiting. To be evaluated for possibility of sepsis. ED note-Lactic acid 2.2 likely starvation ketoacidosis due to poor oral intake. WBC: 02/18-8.77, 02/20-11.20 Lactic acid: 02/17-2.2 Blood cultures: No growth Urine culture: Escherichia coli Vitals signs: 02/17: T-97.3, P-103, P-18, BP-198/107, O2 SAT-98/96/93 Treatment: ID Consult: Recurrent UTI Antibiotics: IV Ertapenem IV Bolus: yes In your professional opinion, please clarify if these findings signify one of the following conditions: [ ] Sepsis POA, please specify organism [ ] Sepsis, Not POA, please specify organism [ ] Sepsis ruled out [ ] Other, please specify [ ] Unable to determine SIRS Criteria: 2 or more of the following may indicate SIRS -Temperature < 96.8F (36C) or > 101.0F (38.3C) -Heart Rate > 90 bpm -Respiratory Rate > 20 breaths/min or PaCO2 < 32 mmHg -White Blood Cell Count > 12,000 or < 4,000 cells/mm3 or > 10% bands Sepsis POA, E coli MTDD
--- NOTE | 2021-02-26 15:55 | P.PN ---
Progress Note - Text Progress Note Date: 02/23/21 REASON FOR FOLLOWUP: E coli urinary tract infection. INTERVAL HISTORY: The patient remains to be afebrile. The patient is breathing comfortably. The patient denies having any chest pain, shortness of breath or cough. No abdominal pain or diarrhea. Patient Urinary symptoms have resolved PHYSICAL EXAMINATION: Blood pressure 140/70 with a pulse of 70, temperature 98.5. She is 95% on room air. GENERAL DESCRIPTION: General description is an elderly female lying in bed in no distress. RESPIRATORY SYSTEM: Unlabored breathing. Clear to auscultation anteriorly. HEART: S1, S2. Regular rate and rhythm. ABDOMEN: Soft. No tenderness. LABS: No new labs have been obtained today. DIAGNOSTIC IMPRESSION AND PLAN: Patient with an Escherichia coli urinary tract infection with a history of recurrent urinary tract infections. She does have MULTIPLE ANTIBIOTIC ALLERGIES. The patient Clinically improved with Invanz with a plan for 7 day course of oral Macrobid 100 mg twice a day on discharge. Continue with supportive care
== END 2021-02-23 12:51 | disposition home health service (06) | DRG 872 ==
LOC: EC 11:31 → 6NMEDSUR 13:44 → OBSVTOIN 02-18 14:08
PROVIDERS: ADMIT Family Medicine; ATTEND Family Medicine
DX: A41.51 Sepsis due to Escherichia coli [E. coli] (principal); N39.0 Urinary tract infection, site not specified; E87.1 Hypo-osmolality and hyponatremia; E27.40 Unspecified adrenocortical insufficiency; E87.2 Acidosis; E11.40 Type 2 diabetes mellitus with diabetic neuropathy, unspecified; B96.20 Unspecified Escherichia coli [E. coli] as the cause of diseases classified elsewhere; E11.51 Type 2 diabetes mellitus with diabetic peripheral angiopathy without gangrene; Z89.421 Acquired absence of other right toe(s); E89.2 Postprocedural hypoparathyroidism; Z79.4 Long term (current) use of insulin; Z20.822 Contact with and (suspected) exposure to COVID-19; K29.00 Acute gastritis without bleeding; E86.0 Dehydration; I16.0 Hypertensive urgency; I10 Essential (primary) hypertension; F32.9 Major depressive disorder, single episode, unspecified; M79.7 Fibromyalgia; G47.33 Obstructive sleep apnea (adult) (pediatric); E78.5 Hyperlipidemia, unspecified; G89.29 Other chronic pain; M54.9 Dorsalgia, unspecified; E66.9 Obesity, unspecified; Z68.33 Body mass index [BMI] 33.0-33.9, adult; M15.9 Polyosteoarthritis, unspecified; Z79.82 Long term (current) use of aspirin; Z79.52 Long term (current) use of systemic steroids; Z79.899 Other long term (current) drug therapy; Z87.440 Personal history of urinary (tract) infections; Z86.718 Personal history of other venous thrombosis and embolism; Z86.14 Personal history of Methicillin resistant Staphylococcus aureus infection; Z86.19 Personal history of other infectious and parasitic diseases; Z87.442 Personal history of urinary calculi; Z87.81 Personal history of (healed) traumatic fracture; Z90.49 Acquired absence of other specified parts of digestive tract; Z87.01 Personal history of pneumonia (recurrent); Z90.710 Acquired absence of both cervix and uterus; Z90.89 Acquired absence of other organs; Z87.19 Personal history of other diseases of the digestive system; Z87.42 Personal history of other diseases of the female genital tract; Z87.448 Personal history of other diseases of urinary system; Z98.1 Arthrodesis status; Z87.2 Personal history of diseases of the skin and subcutaneous tissue; Z87.39 Personal history of other diseases of the musculoskeletal system and connective tissue; Z98.42 Cataract extraction status, left eye; Z98.41 Cataract extraction status, right eye; Z96.41 Presence of insulin pump (external) (internal); Z87.09 Personal history of other diseases of the respiratory system; Z98.890 Other specified postprocedural states; Z88.1 Allergy status to other antibiotic agents; Z88.5 Allergy status to narcotic agent; Z88.0 Allergy status to penicillin; Z88.2 Allergy status to sulfonamides; Z88.8 Allergy status to other drugs, medicaments and biological substances; Z88.6 Allergy status to analgesic agent; Z91.02 Food additives allergy status; Z83.3 Family history of diabetes mellitus; Z82.49 Family history of ischemic heart disease and other diseases of the circulatory system; Z80.49 Family history of malignant neoplasm of other genital organs; Z83.6 Family history of other diseases of the respiratory system; Z82.3 Family history of stroke
CPT/HCPCS: 36415; 71045; 80048; 80053; 81001; 83036; 83605; 83735; 85025; 85610; 85730; 86140; 87040; 87077; 87086; 87186; 87324; 87635; 93005; 96361; 96374; 96375; 99285

== ENCOUNTER 2021-03-03 20:01 | Observation (INO) | payer MEDICARE, BC ==
[2021-03-03 21:03] LABS: Basophils % (A) 0 %; Eosinophils # (A) 0.1 k/uL (0-0.7); Eosinophils % (A) 1 %; HGB 13.7 gm/dL (11.4-16.0); Lymphocytes # (A) 2.3 k/uL (1.0-4.8); Lymphocytes % (A) 23 %; MCH 30.8 pg (25.0-35.0); MCHC 34.2 g/dL (31.0-37.0); MCV 89.9 fL (80.0-100.0); Mean Platelet Volume 7.5; Monocytes # (A) 0.6 k/uL (0-1.0); Monocytes % (A) 6 %; Neutrophils # (A) 6.7 k/uL (1.3-7.7); Neutrophils % (A) 68 %; Platelet Count 379 k/uL (150-450); RBC 4.45 m/uL (3.80-5.40); RDW 14.8 % (11.5-15.5)
[2021-03-03 21:07] LABS: African American GFR (CKD) >90 (>60 ml/min/1.73 sqM); Anion Gap 5 mmol/L; Blood Urea Nitrogen 17 mg/dL (7-17); Calcium 8.3 mg/dL (8.4-10.2); Carbon Dioxide 24 mmol/L (22-30); Chloride 108 mmol/L (98-107); Glucose 88 mg/dL (74-99); Magnesium 1.8 mg/dL (1.6-2.3); Non-African American GFR(CKD) 83 (>60 ml/min/1.73 sqM); Potassium 3.8 mmol/L (3.5-5.1); Sodium 137 mmol/L (137-145)
[2021-03-03] MEDS ORDERED: SODIUM CHLORIDE 0.9% 500 ML 500 ML IV STA (21:28)
[2021-03-03] MEDS ORDERED: HYDROmorphone 0.5 MG/0.5 ML SYRINGE IVP STA (21:28)
--- NOTE | 2021-03-03 21:39 | ED ---
General Adult HPI - General Chief complaint: Weakness Stated complaint: weakness Time Seen by Provider: 03/03/21 20:05 Source: patient, EMS Mode of arrival: EMS Limitations: no limitations - History of Present Illness Initial comments: Dictation was produced using Songkick dictation software. please excuse any grammatical, word or spelling errors. Chief Complaint: 70-year-old female past medical history of adrenal insufficiency, multiple complex medical issues presents to the emergency department for weakness, poor oral intolerance for the last 48 hours History of Present Illness: Patient is 70-year-old female she states that she is here in emergency department for significant worsening weakness. She states that her symptoms have been ongoing for the last 48 hours. She has had poor oral intolerance. She takes multiple medications. She however was able to keep down her blood pressure medications this time. Patient complaining of some right-sided flank pain. at the bedside reports that she is so weak that she is unable to do her activities of daily living. Patient denies any fevers. Patient denies any urinary symptoms. She does have history of drug-resistant. The ROS documented in this emergency department record has been reviewed and confirmed by me. Those systems with pertinent positive or negative responses have been documented in the HPI. All other systems are other negative and/or noncontributory. PHYSICAL EXAM: General Impression: Alert and oriented x3, not in acute distress HEENT: Normocephalic atraumatic, extra-ocular movements intact, pupils equal and reactive to light bilaterally, mucous membranes moist. Cardiovascular: Heart regular rate and rhythm Chest: Able to complete full sentences, no retractions, no tachypnea Abdomen: abdomen soft, non-tender, non-distended, no organomegaly Musculoskeletal: Pulses present and equal in all extremities, no peripheral edema Motor: no focal deficits noted Neurological: CN II-XII grossly intact, no focal motor or sensory deficits noted Skin: Intact with no visualized rashes Psych: Normal affect and mood ED course: 70 yOld female well-known to emergency department for various complaints. Patient has a complex medical issues. Vital Signs upon arrival are within acceptable limits. EKG shows diffuse T-wave inversions concerning for ischemia however patient does not have a chest pain or shortness of breath. After evaluation obtained per it CBC Cesar. Metabolic panel is negative. Urinalysis shows no findings of urinary tract infection. At approximately 10:30 PM patient got a notice from her insulin pump that her blood sugar was low. Point of care blood glucose was 62. Patient insulin pump was turned off. Patient tolerating apple juice. We will continue to monitor patient's blood glucose. Troponins mildly elevated 0.028. Patient given aspirin. A troponin with EKG changes concerning for acute coronary syndrome. She does not have any chest pain shortness of breath and swallow. Reevaluation at bedside at 1106. Patient has serial troponins ordered. Cardiology consulted. EKG interpretation: Ventricular rate a 84, sinus rhythm, WV interval 1:30, QRS 72, QTC 475. No WV prolongation, no QTC prolongation. T wave inversions in high lateral leads, V2 through V6. These appear to be new compared to EKG from 02/18/2020. - Related Data Home Medications Medication Instructions Recorded Confirmed Cholecalciferol [Vitamin D3 (25 25 mcg PO DAILY 12/01/14 03/03/21 Mcg = 1000 Iu)] Metoprolol Succinate (ER) [Toprol 50 mg PO HS 07/06/17 03/03/21 XL] Meclizine [Antivert] 25 mg PO BID PRN 11/26/17 03/03/21 Ferrous Sulfate [Iron (65 MG 325 mg PO DAILY 10/08/18 03/03/21 Elemental)] Folic Acid 0.4 mg PO DAILY 10/08/18 03/03/21 L.acidoph,Paracasei, B.lactis 1 cap PO BID 10/08/18 03/03/21 [Probiotic] Melatonin 5 mg PO HS PRN 10/08/18 03/03/21 Potassium 99 mg PO DAILY 10/08/18 03/03/21 Thiamine [Vitamin B-1] 100 mg PO DAILY 10/08/18 03/03/21 Vitamin B-Complex Drops 1 ml PO BID 10/08/18 03/03/21 Venlafaxine HCl [Effexor XR] 75 mg PO DAILY 11/08/19 03/03/21 Magnesium Oxide [Mag-Ox] 400 mg PO BID 12/06/19 03/03/21 HYDROcodone/APAP 10-325MG [[place] 1 tab PO QID PRN 04/16/20 03/03/21 10-325] C,E,Zinc,Copper 11/Nocgp6b/Lut 1 cap PO DAILY 06/25/20 03/03/21 [Ocuvite Adult 50 Plus Softgel] Cyanocobalamin (Vitamin B-12) 1,000 mcg PO DAILY 06/25/20 03/03/21 [Vitamin B-12] Spironolactone 50 mg PO DAILY 06/25/20 03/03/21 Vitamin E 400 unit PO DAILY 06/25/20 03/03/21 lisinopriL 40 mg PO DAILY 06/25/20 03/03/21 Brimonidine Tartrate [Alphagan P 1 drop RIGHT EYE BID 11/26/20 03/03/21 0.2% Ophth Soln] Butalb/APAP/Caff 50-325-40Mg 1 tab PO TID PRN 11/26/20 03/03/21 [Fioricet 50-325-40] Cholestyramine (with Sugar) 4 gm PO BID 11/26/20 03/03/21 [Questran Packet] Cranberry [id number] Cap 1 cap PO BID 11/26/20 03/03/21 Glucagon [Gvoke Pfs 1-Pack Syringe] 1 mg SQ ONCE PRN 11/26/20 03/03/21 Metoclopramide HCl [Reglan] 5 mg PO TID PRN 11/26/20 03/03/21 Pantoprazole Sodium [Protonix] 40 mg PO DAILY 11/26/20 03/03/21 Cephalexin [Keflex] 250 mg PO HS 12/11/20 03/03/21 busPIRone HCl [Buspar] 5 mg PO BID 02/04/21 03/03/21 Multivitamins, Thera [Multivitamin 1 tab PO DAILY 02/17/21 03/03/21 (formulary)] Nystatin 1 applic TOPICAL BID PRN 02/17/21 03/03/21 Nystatin 100,000 Unit/gm Powd 1 applic TOPICAL BID PRN 02/17/21 03/03/21 [Mycostatin Powder] Insulin Aspart (For Pump) [NovoLOG 0.01 unit SQ-PUMP CONTINUOUS 03/03/21 03/03/21 (For Pump)] Previous Rx's Medication Instructions Recorded Aspirin 81 mg PO DAILY #0 07/02/18 Atorvastatin [Lipitor] 40 mg PO HS #30 tab 11/16/18 Gabapentin [Neurontin] 100 mg PO TID #9 cap 03/24/20 Hydrocortisone [Cortef] 5 mg PO HS #0 12/16/20 Hydrocortisone [Cortef] 10 mg PO DAILY@1200 #0 12/16/20 Hydrocortisone [Cortef] 15 mg PO DAILY #0 12/16/20 Allergies Allergy/AdvReac Type Severity Reaction Status Date / Time butorphanol tartrate Allergy BLISTERS Verified 03/03/21 22:56 [From Stadol] IN MOUTH ceftriaxone [From Rocephin] Allergy Unknown Verified 03/03/21 22:56 clarithromycin [From Biaxin] Allergy Rash/Hives Verified 03/03/21 22:56 clindamycin Allergy Unknown Verified 03/03/21 22:56 codeine Allergy Rash/Hives Verified 03/03/21 22:56 ergotamine tartrate Allergy Unknown Verified 03/03/21 22:56 [From Cafergot] erythromycin base Allergy RASH, GI Verified 03/03/21 22:56 [From E-Mycin] SYMPTOMS ketorolac tromethamine Allergy Rash/Hives Verified 03/03/21 22:56 [From Toradol] liraglutide [From Victoza] Allergy Rash/Hives Verified 03/03/21 22:56 morphine Allergy Rash/Hives Verified 03/03/21 22:56 Penicillins Allergy Rash/Hives Verified 03/03/21 22:56 pentazocine lactate Allergy SEVERE Verified 03/03/21 22:56 [From Talwin] BLISTERS IN MOUTH pregabalin [From Lyrica] Allergy Rash/Hives Verified 03/03/21 22:56 propoxyphene HCl Allergy Rash/Hives Verified 03/03/21 22:56 [From Darvon] Sulfa (Sulfonamide Allergy Rash/Hives Verified 03/03/21 22:56 Antibiotics) tramadol Allergy Unknown Verified 03/03/21 22:56 monosodium glutamate [MSG] AdvReac Nausea & Verified 03/03/21 22:56 Vomiting nalbuphine HCl [From Nubain] AdvReac Nausea & Verified 03/03/21 22:56 Vomiting Review of Systems ROS Statement: Those systems with pertinent positive or pertinent negative responses have been documented in the HPI. ROS Other: All systems not noted in ROS Statement are negative. 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, DVT R calf in 1976, cardiac murmur, occipital neuraligia, balance issues-has narrowing of vessels "in the back of my head", vertigo, varicosities, states rt shoulder torn rotator cuff History of Any Multi-Drug Resistant Organisms: ESBL, MRSA, VRE Date of last positivie culture/infection: 11/25/20 ESBL;12/06/19 VRE; 03/10/11 MRSA MDRO Source:: Urine ESBL; Urine-VRE: MRSA 4th Right TOE Past Surgical History: Appendectomy, Back Surgery, Bladder Surgery, Breast Surgery, Cholecystectomy, Heart Catheterization, Hysterectomy, Orthopedic Surgery, Tonsillectomy Additional Past Surgical History / Comment(s): Lumbar fusions, bladder suspension, occipital nerve blocks, 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, R wrist/elbow nerve repair, bone removed R shoulder, 4th toe R foot partial amputation, bilateral feet/bunionectomies, R knee arthroscopies, R orbit decompression with ethmoidectomy and eyelid lift, EGD, colonoscopies, cystocopies, lithotripsy/stents, bilateral breast reduction, bilateral cataract removals, parathyroid surgery - April 2019, pain clinic procedures Past Anesthesia/Blood Transfusion Reactions: No Reported Reaction Additional Past Anesthesia/Blood Transfusion Reaction / Comment(s): never reciev ed blood Past Psychological History: Depression Smoking Status: Never smoker Past Alcohol Use History: Rare Past Drug Use History: None Reported - Past Family History Father Family Medical History: Coronary Artery Disease (CAD), CVA/TIA, Diabetes Mellitus, Myocardial Infarction (HI), Pneumonia Additional Family Medical History / Comment(s): Father at the age of 78yrs from HI and pneumonia. Mother Family Medical History: Cancer, Congestive Heart Failure (CHF) Additional Family Medical History / Comment(s): Mother had uterine cancer. She recently at the age of 96yrs old from [place]. General Exam Limitations: no limitations Course Vital Signs 03/03/21 03/03/21 20:07 22:09 Temperature 98.2 F Pulse Rate 86 68 Respiratory 18 18 Rate Blood Pressure 127/81 131/78 O2 Sat by Pulse 95 95 Oximetry Medical Decision Making - Lab Data Result diagrams: 03/03/21 20:43 03/03/21 20:43 Lab Results 03/03/21 03/03/21 03/03/21 Range/Units 20:43 20:43 22:09 WBC 10.0 (3.8-10.6) k/uL RBC 4.45 (3.80-5.40) m/uL Hgb 13.7 (11.4-16.0) gm/dL Hct 40.0 (34.0-46.0) % MCV 89.9 (80.0-100.0) fL MCH 30.8 (25.0-35.0) pg MCHC 34.2 (31.0-37.0) g/dL RDW 14.8 (11.5-15.5) % Plt Count 379 (150-450) k/uL MPV 7.5 Neutrophils % 68 % Lymphocytes % 23 % Monocytes % 6 % Eosinophils % 1 % Basophils % 0 % Neutrophils # 6.7 (1.3-7.7) k/uL Lymphocytes # 2.3 (1.0-4.8) k/uL Monocytes # 0.6 (0-1.0) k/uL Eosinophils # 0.1 (0-0.7) k/uL Basophils # 0.0 (0-0.2) k/uL Sodium 137 (137-145) mmol/L Potassium 3.8 (3.5-5.1) mmol/L Chloride 108 H (98-107) mmol/L Carbon Dioxide 24 (22-30) mmol/L Anion Gap 5 mmol/L BUN 17 (7-17) mg/dL Creatinine 0.73 (0.52-1.04) mg/dL Est GFR (CKD-EPI)AfAm >90 (>60 ml/min/1.73 sqM) Est GFR (CKD-EPI)NonAf 83 (>60 ml/min/1.73 sqM) Glucose 88 (74-99) mg/dL POC Glucose (mg/dL) (75-99) mg/dL POC Glu Electrical Continuity Inspector ID Calcium 8.3 L (8.4-10.2) mg/dL Magnesium 1.8 (1.6-2.3) mg/dL Troponin I 0.028 (0.000-0.034) ng/mL Urine Color Urine Appearance (Clear) Urine pH (5.0-8.0) Ur Specific [place] (1.001-1.035) Urine Protein (Negative) Urine Glucose (UA) (Negative) Urine Ketones (Negative) Urine Blood (Negative) Urine Nitrite (Negative) Urine Bilirubin (Negative) Urine Urobilinogen (<2.0) mg/dL Ur Leukocyte Esterase (Negative) Urine RBC (0-5) /hpf Urine WBC (0-5) /hpf Ur Squamous Epith Cells (0-4) /hpf Urine Bacteria (None) /hpf Cellular Casts (0) /lpf Hyaline Casts (0-2) /lpf Granular Casts (0) /lpf Urine Mucus (None) /hpf 03/03/21 03/03/21 Range/Units 22:25 22:35 WBC (3.8-10.6) k/uL RBC (3.80-5.40) m/uL Hgb (11.4-16.0) gm/dL Hct (34.0-46.0) % MCV (80.0-100.0) fL MCH (25.0-35.0) pg MCHC (31.0-37.0) g/dL RDW (11.5-15.5) % Plt Count (150-450) k/uL MPV Neutrophils % % Lymphocytes % % Monocytes % % Eosinophils % % Basophils % % Neutrophils # (1.3-7.7) k/uL Lymphocytes # (1.0-4.8) k/uL Monocytes # (0-1.0) k/uL Eosinophils # (0-0.7) k/uL Basophils # (0-0.2) k/uL Sodium (137-145) mmol/L Potassium (3.5-5.1) mmol/L Chloride (98-107) mmol/L Carbon Dioxide (22-30) mmol/L Anion Gap mmol/L BUN (7-17) mg/dL Creatinine (0.52-1.04) mg/dL Est GFR (CKD-EPI)AfAm (>60 ml/min/1.73 sqM) Est GFR (CKD-EPI)NonAf (>60 ml/min/1.73 sqM) Glucose (74-99) mg/dL POC Glucose (mg/dL) 62 L (75-99) mg/dL POC Glu Electrical Continuity Inspector ID Marleen Milligan Calcium (8.4-10.2) mg/dL Magnesium (1.6-2.3) mg/dL Troponin I (0.000-0.034) ng/mL Urine Color Yellow Urine Appearance Clear (Clear) Urine pH 5.5 (5.0-8.0) Ur Specific [place] 1.035 (1.001-1.035) Urine Protein 1+ H (Negative) Urine Glucose (UA) Negative (Negative) Urine Ketones Negative (Negative) Urine Blood Negative (Negative) Urine Nitrite Negative (Negative) Urine Bilirubin Negative (Negative) Urine Urobilinogen <2.0 (<2.0) mg/dL Ur Leukocyte Esterase Small H (Negative) Urine RBC 3 (0-5) /hpf Urine WBC 2 (0-5) /hpf Ur Squamous Epith Cells 1 (0-4) /hpf Urine Bacteria Rare H (None) /hpf Cellular Casts 3 (0) /lpf Hyaline Casts 18 H (0-2) /lpf Granular Casts 3 (0) /lpf Urine Mucus Few H (None) /hpf Disposition Clinical Impression: Hypoglycemia, Elevated troponin Disposition: ADMITTED IP TO THIS HOSP Condition: Fair
[2021-03-03 22:36] LABS: Glucose,Whole Blood 62 mg/dL (75-99)
[2021-03-03 22:36] LABS: Appearance,Urine Clear (Clear); Bacteria,Urine Rare /hpf; Bilirubin,Urine Negative (Negative); Blood,Urine Negative (Negative); Cellular Casts,Urine 3 /lpf (0); Color,Urine Yellow; Glucose,Urine (UA) Negative (Negative); Granular Casts,Urine 3 /lpf (0); Hyaline Casts,Urine 18 /lpf (0-2); Ketones,Urine Negative (Negative); Leukocyte Esterase,Urine Small (Negative); Mucus,Urine Few /hpf; Nitrite,Urine Negative (Negative); PH, Urine 5.5 (5.0-8.0); Protein,Urine 1+ (Negative); RBC,Urine 3 /hpf (0-5); Specific Gravity,Urine 1.035 (1.001-1.035); Squamous Epithelial Cell,Urine 1 /hpf (0-4); Urobilinogen,Urine <2.0 mg/dL (<2.0); WBC,Urine 2 /hpf (0-5)
[2021-03-03] MEDS ORDERED: ACETAMINOPHEN TAB 325 MG TAB PO PRN (22:38)
[2021-03-03] MEDS ORDERED: DEXTROSE 50% SYRINGE 50 ML IVP STA (22:38)
[2021-03-03] MEDS ORDERED: NALOXONE 0.4 MG/ML 1 ML VIAL IV PRN (22:38)
[2021-03-03] MEDS ORDERED: SODIUM CHLORIDE 0.9% 1,000 ML IV SCH (22:45)
[2021-03-03 22:59] LABS: Glucose,Whole Blood 84 mg/dL (75-99)
[2021-03-03] MEDS ORDERED: ASPIRIN 81 MG PO STA (23:06)
[2021-03-03] MEDS ORDERED: HYDROcodone/APAP 10-325MG 1 EACH TAB PO PRN (23:30)
[2021-03-04] MEDS: HYDROmorphone 0.5 MG/0.5 ML SYRINGE IVP PRN ×5 (00:34→16:41)
[2021-03-04] MEDS ORDERED: BUTALB/APAP/CAFF 50-325-40MG TAB PO PRN (06:00)
[2021-03-04 06:26] LABS: Glucose,Whole Blood 124 mg/dL (75-99)
[2021-03-04] MEDS ORDERED: busPIRone HCl 5 MG TAB PO SCH (09:00)
[2021-03-04] MEDS ORDERED: MAGNESIUM OXIDE 400 MG TAB PO SCH (09:00)
[2021-03-04] MEDS ORDERED: ASPIRIN 81 MG PO SCH (09:00)
[2021-03-04] MEDS ORDERED: VENLAFAXINE HCL ER 75 MG CAP PO SCH (09:00)
[2021-03-04] MEDS ORDERED: lisinopriL 20 MG TAB PO SCH (09:00)
[2021-03-04] MEDS ORDERED: METOCLOPRAMIDE 5 MG TAB PO PRN (09:00)
[2021-03-04] MEDS ORDERED: HYDROCORTISONE 10 MG TAB PO SCH ×3 (09:00→21:00)
[2021-03-04] MEDS ORDERED: CHOLESTYRAMINE (WITH SUGAR) 4 GM PACKET PO SCH (09:00)
[2021-03-04] MEDS ORDERED: SPIRONOLACTONE 25 MG TAB PO SCH (09:00)
[2021-03-04] MEDS ORDERED: PANTOPRAZOLE 40 MG TABLET PO SCH (09:00)
[2021-03-04 09:43] VITALS: RESP 20
[2021-03-04 11:32] LABS: Glucose,Whole Blood 162 mg/dL (75-99)
--- NOTE | 2021-03-04 11:35 | P.CRDCN ---
History of Present Illness History of present illness: his is a 70-year-old female with a past medical history significant for adrenal insufficiency, hypertension, hyperlipidemia, diabetes mellitus, and coronary artery disease. Patient follows in the office with Dr. Rosenberg. We are consulted for abnormal EKG. Patient presents to the emergency department with complaints of worsening weakness. Patient states that she's been having lower extremity weakness that has worsened over the past week. She noticed weakness came worse on Monday. She states that she cannot stay up on her legs, she needs help to walk to to the bathroom and do daily activities. She states she usually is admitted and received IV steroids, usually improves and is discharged on hydrocortisone taper. However patient continues to be admitted, with similar symptoms. She also endorses nausea, no vomiting. She denies any chest pain, lightheadedness, dizziness, syncope, shortness of breath, palpitations. Cardiology was consulted recently in December 2020 for abnormal EKG. Patient presented with nausea and vomiting at that time and unable to take her antihypertensive medication. Her blood pressure was uncontrolled. EKG reveals sinus mechanism with diffuse T-wave inversions, new from a prior EKG. Troponin was negative x 3. Echocardiogram was performed which revealed normal LV function 60-65% without significant valvular abnormalities. Patient was stabilized and di scharged home. DIAGNOSTICS EKG: sinus mechanism HR 84, diffuse T wave inversions in lateral and pre-cordial leads. EKG in December 2020 with similar findings. Laboratory data: Troponin negative 3, CBC unremarkable, sodium 137, potassium 3.8, BUN 17, serum creatinine 0.7, magnesium 1.8, COVID-19 kinase 48, COVID-19 negative, cdiff negative Current home medications include Cortef, lisinopril 40 mg daily, spironolactone 50 mg daily, metoprolol succinate 50 mg at night, Lipitor 40 mg daily, aspirin 81 mg daily Patient underwent a Lexiscan stress test in 2019 which was negative for ischemia Cardiac catheterization history: October 2018 revealing intermediate disease involving the proximal LAD with 60% lesion with aneurysmal formation REVIEW OF SYSTEMS: At the time of my exam: CONSTITUTIONAL: Denies fever or chills. Reports generalized weakness. HEENT: Denies blurred vision, vision changes, or eye pain. Denies hemoptysis CARDIOVASCULAR: Denies chest pain. Denies orthopnea. Denies PND. Denies palpitations RESPIRATORY: Denies shortness of breath. GASTROINTESTINAL: Denies abdominal pain. Reports nausea. Denies vomiting. MSK: Bilateral lower exremity weakness HEMATOLOGIC: Denies bleeding disorders. GENITOURINARY: Denies any blood in urine. SKIN: Denies pruitis. Denies rash. PHYSICAL EXAM: VITAL SIGNS: Reviewed. GENERAL: Well-developed in no acute distress. HEENT: Head is normocephalic. Pupils are equal, round. Sclerae anicteric. Mucous membranes of the mouth are moist. Neck supple. No JVD or thyromegaly LUNGS: Respirations even and unlabored. Lungs essentially clear to auscultation bilaterally. HEART: Regular rate and rhythm. S1 and S2 heard. ABDOMEN: Soft. Nondistended. Nontender. EXTREMITIES: Normal range of motion. No clubbing or cyanosis. Peripheral pulses intact. No lower extremity edema NEUROLOGIC: Awake and alert. Oriented x 3. ASSESSMENT: Lower extremity weakness Adrenal insufficiency, on home Cortef Hypertension Hyperlipidemia Diabetes mellitus type 2 Coronary artery disease, previous catheterization in 2018 revealing 60% lesion of proximal LAD with aneurysmal formation PLAN: -EKG changes similar to prior EKG in December 2020, patient does not have any symptoms concerning for ischemia, troponin negative x 3. Recent echocardiogram with normal EF no significant wall motional abnormalities -CPK ordered and within normal limits -Patient continues to be admitted with lower extremity weakness, possibly realted to patient's statin. -Recommend holding Statin for now and follow up with Dr. Rosenberg in the office for further evaluation -No further inpatient recommendations from a cardiology standpoint -We will follow the patient as needed -Recommend follow up outpatient with Dr. Rosenberg. Nurse practitioner note has been reviewed by physician. Signing provider agrees with the documented findings, assessment, and plan of care. 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, neuropathy biltateral feet, chronic bronchitis, ELIZABET with Cpap, UTIs, UTI with sepsis, pyelonephritis/sepsis, nephrolithiasis and has had renal failure d/t blockages, adrenal insufficiency, hyperparathyroidism-with surgery, arthritis in multiple joints, DJD, past bilateral pelvic fractures, R 4th toe am putation d/t ulcer, DVT R calf in 1976, cardiac murmur, occipital neuraligia, balance issues-has narrowing of vessels "in the back of my head", vertigo, varicosities, states rt shoulder torn rotator cuff History of Any Multi-Drug Resistant Organisms: ESBL, MRSA, VRE Date of last positivie culture/infection: 11/25/20 ESBL;12/06/19 VRE; 03/10/11 MRSA MDRO Source:: Urine ESBL; Urine-VRE: MRSA 4th Right TOE Past Surgical History: Appendectomy, Back Surgery, Bladder Surgery, Breast Surgery, Cholecystectomy, Heart Catheterization, Hysterectomy, Orthopedic Surgery, Tonsillectomy Additional Past Surgical History / Comment(s): Lumbar fusions, bladder suspension, occipital nerve blocks, 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, R wrist/elbow nerve repair, bone removed R shoulder, 4th toe R foot partial amputation, bilateral feet/bunionectomies, R knee arthroscopies, R orbit deco mpression with ethmoidectomy and eyelid lift, EGD, colonoscopies, cystocopies, lithotripsy/stents, bilateral breast reduction, bilateral cataract removals, parathyroid surgery - April 2019, pain clinic procedures Past Anesthesia/Blood Transfusion Reactions: No Reported Reaction Additional Past Anesthesia/Blood Transfusion Reaction / Comment(s): never recieved blood Past Psychological History: Depression Additional Psychological History / Comment(s): Pt resides with her spouse. She uses a walker. She normally drives. She has a nebulizer, cpap, bsc, shower chair, bp machine, dexcom monitor system for her BG and insulin pump. She has [facility] home care. Smoking Status: Never smoker Past Alcohol Use History: Rare Additional Past Alcohol Use History / Comment(s): no alcohol Past Drug Use History: None Reported - Past Family History Father Family Medical History: Coronary Artery Disease (CAD), CVA/TIA, Diabetes Mellitus, Myocardial Infarction ([place]), Pneumonia Additional Family Medical History / Comment(s): Father at the age of 78yrs from [place] and pneumonia. Mother Family Medical History: Cancer, Congestive Heart Failure (CHF) Additional Family Medical History / Comment(s): Mother had uterine cancer. She recently at the age of 96yrs old from shingles. Medications and Allergies Home Medications Medication Instructions Recorded Confirmed Type Cholecalciferol [Vitamin D3 (25 25 mcg PO DAILY 12/01/14 03/03/21 History Mcg = 1000 Iu)] Metoprolol Succinate (ER) [Toprol 50 mg PO HS 07/06/17 03/03/21 History XL] Meclizine [Antivert] 25 mg PO BID PRN 11/26/17 03/03/21 History Aspirin 81 mg PO DAILY #0 07/02/18 03/03/21 Rx Ferrous Sulfate [Iron (65 MG 325 mg PO DAILY 10/08/18 03/03/21 History Elemental)] Folic Acid 0.4 mg PO DAILY 10/08/18 03/03/21 History L.acidoph,Paracasei, B.lactis 1 cap PO BID 10/08/18 03/03/21 History [Probiotic] Melatonin 5 mg PO HS PRN 10/08/18 03/03/21 History Potassium 99 mg PO DAILY 10/08/18 03/03/21 History Thiamine [Vitamin B-1] 100 mg PO DAILY 10/08/18 03/03/21 History Vitamin B-Complex Drops 1 ml PO BID 10/08/18 03/03/21 History Atorvastatin [Lipitor] 40 mg PO HS #30 tab 11/16/18 03/03/21 Rx Venlafaxine HCl [Effexor XR] 75 mg PO DAILY 11/08/19 03/03/21 History Magnesium Oxide [Mag-Ox] 400 mg PO BID 12/06/19 03/03/21 History Gabapentin [Neurontin] 100 mg PO TID #9 cap 03/24/20 03/03/21 Rx HYDROcodone/APAP 10-325MG [[place] 1 tab PO QID PRN 04/16/20 03/03/21 History 10-325] C,E,Zinc,Copper 11/Bqlwc7s/Lut 1 cap PO DAILY 06/25/20 03/03/21 History [Ocuvite Adult 50 Plus Softgel] Cyanocobalamin (Vitamin B-12) 1,000 mcg PO DAILY 06/25/20 03/03/21 History [Vitamin B-12] Spironolactone 50 mg PO DAILY 06/25/20 03/03/21 History Vitamin E 400 unit PO DAILY 06/25/20 03/03/21 History lisinopriL 40 mg PO DAILY 06/25/20 03/03/21 History Brimonidine Tartrate [Alphagan P 1 drop RIGHT EYE BID 11/26/20 03/03/21 History 0.2% Ophth Soln] Butalb/APAP/Caff 50-325-40Mg 1 tab PO TID PRN 11/26/20 03/03/21 History [Fioricet 50-325-40] Cholestyramine (with Sugar) 4 gm PO BID 11/26/20 03/03/21 History [Questran Packet] Cranberry [id number] Cap 1 cap PO BID 11/26/20 03/03/21 History Glucagon [Gvoke Pfs 1-Pack Syringe] 1 mg SQ ONCE PRN 11/26/20 03/03/21 History Metoclopramide HCl [Reglan] 5 mg PO TID PRN 11/26/20 03/03/21 History Pantoprazole Sodium [Protonix] 40 mg PO DAILY 11/26/20 03/03/21 History Cephalexin [Keflex] 250 mg PO HS 12/11/20 03/03/21 History Hydrocortisone [Cortef] 5 mg PO HS #0 12/16/20 03/03/21 Rx Hydrocortisone [Cortef] 10 mg PO DAILY@1200 #0 12/16/20 03/03/21 Rx Hydrocortisone [Cortef] 15 mg PO DAILY #0 12/16/20 03/03/21 Rx busPIRone HCl [Buspar] 5 mg PO BID 02/04/21 03/03/21 History Multivitamins, Thera [Multivitamin 1 tab PO DAILY 02/17/21 03/03/21 History (formulary)] Nystatin 1 applic TOPICAL BID PRN 02/17/21 03/03/21 History Nystatin 100,000 Unit/gm Powd 1 applic TOPICAL BID PRN 02/17/21 03/03/21 History [Mycostatin Powder] Insulin Aspart (For Pump) [NovoLOG 0.01 unit SQ-PUMP CONTINUOUS 03/03/21 03/03/21 History (For Pump)] Allergies Allergy/AdvReac Type Severity Reaction Status Date / Time butorphanol tartrate Allergy BLISTERS Verified 03/03/21 22:56 [From Stadol] IN MOUTH ceftriaxone [From Rocephin] Allergy Unknown Verified 03/03/21 22:56 clarithromycin [From Biaxin] Allergy Rash/Hives Verified 03/03/21 22:56 clindamycin Allergy Unknown Verified 03/03/21 22:56 codeine Allergy Rash/Hives Verified 03/03/21 22:56 ergotamine tartrate Allergy Unknown Verified 03/03/21 22:56 [From Cafergot] erythromycin base Allergy RASH, GI Verified 03/03/21 22:56 [From E-Mycin] SYMPTOMS ketorolac tromethamine Allergy Rash/Hives Verified 03/03/21 22:56 [From Toradol] liraglutide [From Victoza] Allergy Rash/Hives Verified 03/03/21 22:56 morphine Allergy Rash/Hives Verified 03/03/21 22:56 Penicillins Allergy Rash/Hives Verified 03/03/21 22:56 pentazocine lactate Allergy SEVERE Verified 03/03/21 22:56 [From Talwin] BLISTERS IN MOUTH pregabalin [From Lyrica] Allergy Rash/Hives Verified 03/03/21 22:56 propoxyphene HCl Allergy Rash/Hives Verified 03/03/21 22:56 [From Darvon] Sulfa (Sulfonamide Allergy Rash/Hives Verified 03/03/21 22:56 Antibiotics) tramadol Allergy Unknown Verified 03/03/21 22:56 monosodium glutamate [MSG] AdvReac Nausea & Verified 03/03/21 22:56 Vomiting nalbuphine HCl [From Nubain] AdvReac Nausea & Verified 03/03/21 22:56 Vomiting Physical Exam Vitals: Vital Signs Temp Pulse Pulse Resp BP BP Pulse Ox 03/04/21 05:00 98.8 F 96 18 110/70 99 03/04/21 02:00 82 03/04/21 00:08 98.4 F 82 18 119/68 98 03/03/21 23:43 74 18 140/81 95 03/03/21 22:09 68 18 131/78 95 03/03/21 20:07 98.2 F 86 18 127/81 95 Intake and Output 03/03/21 03/04/21 03/04/21 22:59 06:59 14:59 Other: Voiding Method Incontinent # Bowel Movements 1 Weight 65.771 kg 70 kg Results 03/03/21 20:43 03/03/21 20:43 Cardiac Enzymes 03/03/21 03/04/21 03/04/21 Range/Units 22:09 02:18 05:20 Troponin I 0.028 0.027 0.027 (0.000-0.034) ng/mL CBC 03/03/21 Range/Units 20:43 WBC 10.0 (3.8-10.6) k/uL RBC 4.45 (3.80-5.40) m/uL Hgb 13.7 (11.4-16.0) gm/dL Hct 40.0 (34.0-46.0) % Plt Count 379 (150-450) k/uL Comprehensive Metabolic Panel 03/03/21 Range/Units 20:43 Sodium 137 (137-145) mmol/L Potassium 3.8 (3.5-5.1) mmol/L Chloride 108 H (98-107) mmol/L Carbon Dioxide 24 (22-30) mmol/L BUN 17 (7-17) mg/dL Creatinine 0.73 (0.52-1.04) mg/dL Glucose 88 (74-99) mg/dL Calcium 8.3 L (8.4-10.2) mg/dL Current Medications Generic Name Dose Route Start Last Admin Trade Name Freq PRN Reason Stop Dose Admin Acetaminophen 650 mg 03/03/21 22:38 Acetaminophen Tab 325 Mg Tab PO Q6HR PRN Mild Pain or Fever > 100.5 Acetaminophen/Butalbital/Caffeine 1 each 03/04/21 06:00 Butalb/Apap/Caff 50-325-40mg Tab PO TID PRN Migraine Headache Hydrocodone Bitart/Acetaminophen 1 each 03/03/21 23:30 Hydrocodone/Apap 10-325mg 1 Each Tab PO QID PRN Pain Aspirin 81 mg 03/04/21 09:00 Aspirin 81 Mg PO DAILY [facility] Atorvastatin Calcium 40 mg 03/04/21 21:00 Atorvastatin 40 Mg Tab PO HS [facility] Buspirone HCl 5 mg 03/04/21 09:00 Buspirone Hcl 5 Mg Tab PO BID [facility] Cholestyramine Resin 4 gm 03/04/21 09:00 Cholestyramine (With Sugar) 4 Gm Packet PO BID [facility] Gabapentin 100 mg 03/04/21 09:00 Gabapentin 100 Mg Cap PO TID [facility] Hydrocortisone 5 mg 03/04/21 21:00 Hydrocortisone 10 Mg Tab PO HS [facility] Hydrocortisone 10 mg 03/04/21 12:00 Hydrocortisone 10 Mg Tab PO DAILY@1200 [facility] Hydrocortisone 15 mg 03/04/21 09:00 Hydrocortisone 10 Mg Tab PO DAILY [facility] Hydromorphone HCl 0.5 mg 03/03/21 22:38 03/04/21 04:58 Hydromorphone 0.5 Mg/0.5 Ml Syringe IVP 0.5 mg Q3HR PRN Administration Moderate Pain Sodium Chloride 1,000 mls @ 75 mls/hr 03/03/21 22:45 03/03/21 23:16 Saline 0.9% IV 75 mls/hr .[id number] [facility] Administration Lisinopril 40 mg 03/04/21 09:00 Lisinopril 20 Mg Tab PO DAILY [facility] Magnesium Oxide 400 mg 03/04/21 09:00 Magnesium Oxide 400 Mg Tab PO BID [facility] Metoclopramide HCl 5 mg 03/04/21 09:00 Metoclopramide 5 Mg Tab PO TID PRN Nausea Metoprolol Succinate 50 mg 03/04/21 21:00 Metoprolol Succinate (Er) 50 Mg Tab.Er.24h PO HS [facility] Naloxone HCl 0.2 mg 03/03/21 22:38 Naloxone 0.4 Mg/Ml 1 Ml Vial IV Q2M PRN Opioid Reversal Pantoprazole Sodium 40 mg 03/04/21 09:00 Pantoprazole 40 Mg Tablet PO DAILY [facility] Spironolactone 50 mg 03/04/21 09:00 Spironolactone 25 Mg Tab PO DAILY [facility] Venlafaxine HCl 75 mg 03/04/21 09:00 Venlafaxine Hcl Er 75 Mg Cap PO DAILY [facility] Intake and Output 03/03/21 03/04/21 03/04/21 22:59 06:59 14:59 Other: Voiding Method Incontinent # Bowel Movements 1 Weight 65.771 kg 70 kg 03/03/21 20:43 03/03/21 20:43
[2021-03-04 12:00] LABS: Calcium 8.3 mg/dL (8.4-10.2)
[2021-03-04 12:02] LABS: Potassium 4.3 mmol/L (3.5-5.1)
[2021-03-04 12:03] LABS: Magnesium 1.7 mg/dL (1.6-2.3)
[2021-03-04] MEDS: GABAPENTIN 100 MG CAP PO SCH ×2 (12:16→16:41)
[2021-03-04] MEDS ORDERED: Magnesium Replacement Protocol 1 EACH MISC MISCELLANE PRN (14:08)
--- NOTE | 2021-03-04 14:13 | P.HPIM ---
History of Present Illness H&P Date: 03/04/21 A 70-year-old female who is here today for a complaint of generalized weakness over the past 2 days at home. Patient also states that she has had 6 episodes of diarrhea in the last day. Patient was started on insulin pump from her soil conservationist about 1 month ago which her helps her manage at home. Patient is currently off the imsulin pump. Patient has a past medical history of diabetes mellitus type 2, DVT, fibromyalgia, hypertension and cholesterol, renal disease. Patient follows closely with endocrinology in addition for a history of adrenal disease, she is maintained on oral Solu-Cortef. Patient also reports some subpubic pain, right flank pain. Her blood count was normal, lactate within normal limits, troponins are negative, C. diff and Covid are also negative. Cardiology has cleared the patient this morning for EKG changes that has appeared new. Patient admits to a decreased oral intake in the last few days as well, suspect dehydration related to decreased oral intake, insulin excess due to insulin pump, and diarrhea. REVIEW OF SYSTEMS: CONSTITUTIONAL: No fever, no malaise, no fatigue. HEENT: No recent visual problems or hearing problems. Denied any sore throat. CARDIOVASCULAR: No chest pain, orthopnea, PND, no palpitations, no syncope. PULMONARY: No shortness of breath, no cough, no hemoptysis. GASTROINTESTINAL: Reports nausea, diarrhea. Denies vomiting. Denies abdominal pain. NEUROLOGICAL: No headaches, no weakness, no numbness. HEMATOLOGICAL: Denies any bleeding or petechiae. GENITOURINARY: Denies any burning micturition, frequency, or urgency. Reports suprapubic pain, right flank pain MUSCULOSKELETAL/RHEUMATOLOGICAL: Denies any joint pain, swelling, or any muscle pain. ENDOCRINE: Denies any polyuria or polydipsia. The rest of the 14-point review of systems is negative. PHYSICAL EXAMINATION: GENERAL: The patient is alert and oriented x3, not in any acute distress. Well developed, well nourished. HEENT: Pupils are round and equally reacting to light. EOMI. No scleral icterus. No conjunctival pallor. Normocephalic, atraumatic. No pharyngeal erythema. No thyromegaly. CARDIOVASCULAR: S1 and S2 present. No murmurs, rubs, or gallops. PULMONARY: Chest is clear to auscultation, no wheezing or crackles. ABDOMEN: Soft, nontender, nondistended, normoactive bowel sounds. No palpable organomegaly. Right CVA tenderness. MUSCULOSKELETAL: No joint swelling or deformity. EXTREMITIES: No cyanosis, clubbing, or pedal edema. NEUROLOGICAL: Gross neurological examination did not reveal any focal deficits. SKIN: No rashes. Assessment and plan Assessment Generalized weaknesspatient has multiple medical comorbidities, decreased oral intake over the last couple days Abnormal EKG, sinus rhythm with diffuse T-wave inversions, new from previous EKG - cardiology cleared patient, troponins negative 3 Diarrhea - C. diff is negative, most likely viral, patient started on questran, only one episode of diarrhea today. 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 Patient's diarrhea has improved with Questran, C. diff negative. Patient will have her magnesium replaced per protocol and is stable for discharge home. Patient continue on her insulin pump, and follow-up with her soil conservationist. 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, DVT R calf in 1976, cardiac murmur, occipital neuraligia, balance issues-has narrowing of vessels "in the back of my head", vertigo, varicosities, states rt shoulder torn rotator cuff History of Any Multi-Drug Resistant Organisms: ESBL, MRSA, VRE Date of last positivie culture/infection: 11/25/20 ESBL;12/06/19 VRE; 03/10/11 MRSA MDRO Source:: Urine ESBL; Urine-VRE: MRSA 4th Right TOE Past Surgical History: Appendectomy, Back Surgery, Bladder Surgery, Breast Surgery, Cholecystectomy, Heart Catheterization, Hysterectomy, Orthopedic Surgery, Tonsillectomy Additional Past Surgical History / Comment(s): Lumbar fusions, bladder suspension, occipital nerve blocks, 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, R wrist/elbow nerve repair, bone removed R shoulder, 4th toe R foot partial amputation, bilateral feet/bunionectomies, R knee arthroscopies, R orbit decompression with ethmoidectomy and eyelid lift, EGD, colonoscopies, cystocopies, lithotripsy/stents, bilateral breast reduction, bilateral cataract removals, parathyroid surgery - April 2019, pain clinic procedures Past Anesthesia/Blood Transfusion Reactions: No Reported Reaction Additional Past Anesthesia/Blood Transfusion Reaction / Comment(s): never recieved blood Past Psychological History: Depression Additional Psychological History / Comment(s): Pt resides with her spouse. She uses a walker. She normally drives. She has a nebulizer, cpap, bsc, shower chair, bp machine, dexcom monitor system for her BG and insulin pump. She has [facility] home care. Smoking Status: Never smoker Past Alcohol Use History: Rare Additional Past Alcohol Use History / Comment(s): no alcohol Past Drug Use History: None Reported - Past Family History Father Family Medical History: Coronary Artery Disease (CAD), CVA/TIA, Diabetes Mellitus, Myocardial Infarction ([place]), Pneumonia Additional Family Medical History / Comment(s): Father at the age of 78yrs from [place] and pneumonia. Mother Family Medical History: Cancer, Congestive Heart Failure (CHF) Additional Family Medical History / Comment(s): Mother had uterine cancer. She recently at the age of 96yrs old from shingles. Medications and Allergies Home Medications Medication Instructions Recorded Confirmed Type Cholecalciferol [Vitamin D3 (25 25 mcg PO DAILY 12/01/14 03/03/21 History Mcg = 1000 Iu)] Metoprolol Succinate (ER) [Toprol 50 mg PO HS 07/06/17 03/03/21 History XL] Meclizine [Antivert] 25 mg PO BID PRN 11/26/17 03/03/21 History Aspirin 81 mg PO DAILY #0 07/02/18 03/03/21 Rx Ferrous Sulfate [Iron (65 MG 325 mg PO DAILY 10/08/18 03/03/21 History Elemental)] Folic Acid 0.4 mg PO DAILY 10/08/18 03/03/21 History L.acidoph,Paracasei, B.lactis 1 cap PO BID 10/08/18 03/03/21 History [Probiotic] Melatonin 5 mg PO HS PRN 10/08/18 03/03/21 History Potassium 99 mg PO DAILY 10/08/18 03/03/21 History Thiamine [Vitamin B-1] 100 mg PO DAILY 10/08/18 03/03/21 History Vitamin B-Complex Drops 1 ml PO BID 10/08/18 03/03/21 History Venlafaxine HCl [Effexor XR] 75 mg PO DAILY 11/08/19 03/03/21 History Magnesium Oxide [Mag-Ox] 400 mg PO BID 12/06/19 03/03/21 History Gabapentin [Neurontin] 100 mg PO TID #9 cap 03/24/20 03/03/21 Rx HYDROcodone/APAP 10-325MG [[place] 1 tab PO QID PRN 04/16/20 03/03/21 History 10-325] C,E,Zinc,Copper 11/Ebnrw5t/Lut 1 cap PO DAILY 06/25/20 03/03/21 History [Ocuvite Adult 50 Plus Softgel] Cyanocobalamin (Vitamin B-12) 1,000 mcg PO DAILY 06/25/20 03/03/21 History [Vitamin B-12] Spironolactone 50 mg PO DAILY 06/25/20 03/03/21 History Vitamin E 400 unit PO DAILY 06/25/20 03/03/21 History lisinopriL 40 mg PO DAILY 06/25/20 03/03/21 History Brimonidine Tartrate [Alphagan P 1 drop RIGHT EYE BID 11/26/20 03/03/21 History 0.2% Ophth Soln] Butalb/APAP/Caff 50-325-40Mg 1 tab PO TID PRN 11/26/20 03/03/21 History [Fioricet 50-325-40] Cholestyramine (with Sugar) 4 gm PO BID 11/26/20 03/03/21 History [Questran Packet] Cranberry [id number] Cap 1 cap PO BID 11/26/20 03/03/21 History Glucagon [Gvoke Pfs 1-Pack Syringe] 1 mg SQ ONCE PRN 11/26/20 03/03/21 History Metoclopramide HCl [Reglan] 5 mg PO TID PRN 11/26/20 03/03/21 History Pantoprazole Sodium [Protonix] 40 mg PO DAILY 11/26/20 03/03/21 History Cephalexin [Keflex] 250 mg PO HS 12/11/20 03/03/21 History Hydrocortisone [Cortef] 5 mg PO HS #0 12/16/20 03/03/21 Rx Hydrocortisone [Cortef] 10 mg PO DAILY@1200 #0 12/16/20 03/03/21 Rx Hydrocortisone [Cortef] 15 mg PO DAILY #0 12/16/20 03/03/21 Rx busPIRone HCl [Buspar] 5 mg PO BID 02/04/21 03/03/21 History Multivitamins, Thera [Multivitamin 1 tab PO DAILY 02/17/21 03/03/21 History (formulary)] Nystatin 1 applic TOPICAL BID PRN 02/17/21 03/03/21 History Nystatin 100,000 Unit/gm Powd 1 applic TOPICAL BID PRN 02/17/21 03/03/21 History [Mycostatin Powder] Insulin Aspart (For Pump) [NovoLOG 0.01 unit SQ-PUMP CONTINUOUS 03/03/21 03/03/21 History (For Pump)] Allergies Allergy/AdvReac Type Severity Reaction Status Date / Time butorphanol tartrate Allergy BLISTERS Verified 03/03/21 22:56 [From Stadol] IN MOUTH ceftriaxone [From Rocephin] Allergy Unknown Verified 03/03/21 22:56 clarithromycin [From Biaxin] Allergy Rash/Hives Verified 03/03/21 22:56 clindamycin Allergy Unknown Verified 03/03/21 22:56 codeine Allergy Rash/Hives Verified 03/03/21 22:56 ergotamine tartrate Allergy Unknown Verified 03/03/21 22:56 [From Cafergot] erythromycin base Allergy RASH, GI Verified 03/03/21 22:56 [From E-Mycin] SYMPTOMS ketorolac tromethamine Allergy Rash/Hives Verified 03/03/21 22:56 [From Toradol] liraglutide [From Victoza] Allergy Rash/Hives Verified 03/03/21 22:56 morphine Allergy Rash/Hives Verified 03/03/21 22:56 Penicillins Allergy Rash/Hives Verified 03/03/21 22:56 pentazocine lactate Allergy SEVERE Verified 03/03/21 22:56 [From Talwin] BLISTERS IN MOUTH pregabalin [From Lyrica] Allergy Rash/Hives Verified 03/03/21 22:56 propoxyphene HCl Allergy Rash/Hives Verified 03/03/21 22:56 [From Darvon] Sulfa (Sulfonamide Allergy Rash/Hives Verified 03/03/21 22:56 Antibiotics) tramadol Allergy Unknown Verified 03/03/21 22:56 monosodium glutamate [MSG] AdvReac Nausea & Verified 03/03/21 22:56 Vomiting nalbuphine HCl [From Nubain] AdvReac Nausea & Verified 03/03/21 22:56 Vomiting Physical Exam Vitals: Vital Signs Temp Pulse Pulse Resp BP BP Pulse Ox 03/04/21 08:00 98.7 F 119 H 20 121/71 96 03/04/21 05:00 98.8 F 96 18 110/70 99 03/04/21 02:00 82 03/04/21 00:08 98.4 F 82 18 119/68 98 03/03/21 23:43 74 18 140/81 95 03/03/21 22:09 68 18 131/78 95 03/03/21 20:07 98.2 F 86 18 127/81 95 Intake and Output 03/03/21 03/04/21 03/04/21 22:59 06:59 14:59 Other: Voiding Method Incontinent Incontinent # Bowel Movements 1 Weight 65.771 kg 70 kg Results CBC & Chem 7: 03/03/21 20:43 03/04/21 09:55 Labs: Abnormal Lab Results - Last 24 Hours (Table) 03/03/21 03/03/21 03/03/21 Range/Units 20:43 22:25 22:35 Chloride 108 H (98-107) mmol/L POC Glucose (mg/dL) 62 L (75-99) mg/dL Calcium 8.3 L (8.4-10.2) mg/dL Urine Protein 1+ H (Negative) Ur Leukocyte Esterase Small H (Negative) Urine Bacteria Rare H (None) /hpf Hyaline Casts 18 H (0-2) /lpf Urine Mucus Few H (None) /hpf 03/04/21 03/04/21 Range/Units 06:25 11:30 Chloride (98-107) mmol/L POC Glucose (mg/dL) 124 H 162 H (75-99) mg/dL Calcium (8.4-10.2) mg/dL Urine Protein (Negative) Ur Leukocyte Esterase (Negative) Urine Bacteria (None) /hpf Hyaline Casts (0-2) /lpf Urine Mucus (None) /hpf Thrombosis Risk Factor Assmnt - Choose All That Apply Each Risk Factor Represents 2 Points: Age 61-74 years Each Risk Factor Represents 3 Points: History of DVT/PE Thrombosis Risk Factor Assessment Total Risk Factor Score: 5 Thrombosis Risk Factor Assessment Level: High Risk
--- NOTE | 2021-03-04 14:21 | P.DS ---
Providers Date of admission: 03/03/21 22:38 Attending physician: Andrew Gonsales MD Consults: 03/03/21 22:39 Consult Physician Routine Consulting Provider: Muna Downs Consult Reason/Comments: ekg changes Do you want consulting provider notified?: Yes Primary care physician: Andrew Gonsales MD Hospital Course: Final diagnosis Generalized weaknesspatient has multiple medical comorbidities, decreased oral intake over the last couple days Abnormal EKG, sinus rhythm with diffuse T-wave inversions, new from previous EKG - cardiology cleared patient, troponins negative 3 Diarrhea - C. diff is negative, most likely viral, patient started on questran, only one episode of diarrhea today. 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 Continue to encourage oral intake. Hospital course A 70-year-old female who is here today for a complaint of generalized weakness over the past 2 days at home. Patient also states that she has had 6 episodes of diarrhea in the last day. Patient was started on insulin pump from her bingo clerk about 1 month ago which her helps her manage at home. Patient is currently off the imsulin pump. Patient has a past medical history of diabetes mellitus type 2, DVT, fibromyalgia, hypertension and cholesterol, renal disease. Patient follows closely with endocrinology in addition for a history of adrenal disease, she is maintained on oral Solu-Cortef. Patient also reports some subpubic pain, right flank pain. Her blood count was normal, lactate within normal limits, troponins are negative, C. diff and Covid are also negative. Cardiology has cleared the patient this morning for EKG changes that has appeared new. Patient denies any chest pain, cough, shortness of breath, palpitations. Patient's urinalysis was negative, but her skin was negative for any posterior residual. Patient admits to a decreased oral intake in the last few days as well, suspect dehydration related to decreased oral intake, insulin excess due to insulin pump, and diarrhea. Patient's vital signs remained stable with that admission, afebrile, blood pressure 110s over 70s to which lisinopril has been cut in half. Patient will follow-up with her PCP, cardiology, endocrinology. 03/04/2021 Patient is evaluated today at the bedside. She denies any nausea, vomiting. She states that she is only one episode of diarrhea today. Patient is taking the question as needed. Patient has remained afebrile, blood pressure WNL, heart rate in the 90s. Patient denies any pain, chest pain, palpitations. She denies any cough or shortness of breath. Patient denies any neurological deficits. Patient has been cleared by cardiology services as troponins have been negative. Please see medication reconciliation for list of current inpatient medications Patient Condition at Discharge: Fair Plan - Discharge Summary Discharge Rx Participant: No New Discharge Prescriptions: New lisinopriL [Zestril] 20 mg PO DAILY tab Continue Cholecalciferol [Vitamin D3 (25 Mcg = 1000 Iu)] 25 mcg PO DAILY Metoprolol Succinate (ER) [Toprol XL] 50 mg PO HS Meclizine [Antivert] 25 mg PO BID PRN PRN Reason: Vertigo Aspirin 81 mg PO DAILY #0 Ferrous Sulfate [Iron (65 MG Elemental)] 325 mg PO DAILY Vitamin B-Complex Drops 1 ml PO BID Thiamine [Vitamin B-1] 100 mg PO DAILY Folic Acid 0.4 mg PO DAILY L.acidoph,Paracasei, B.lactis [Probiotic] 1 cap PO BID Melatonin 5 mg PO HS PRN PRN Reason: Insomnia Potassium 99 mg PO DAILY Venlafaxine HCl [Effexor XR] 75 mg PO DAILY Magnesium Oxide [Mag-Ox] 400 mg PO BID Gabapentin [Neurontin] 100 mg PO TID #9 cap HYDROcodone/APAP 10-325MG [[place] 10-325] 1 tab PO QID PRN PRN Reason: Pain Spironolactone 50 mg PO DAILY C,E,Zinc,Copper 11/Tskht4j/Lut [Ocuvite Adult 50 Plus Softgel] 1 cap PO DAILY Cyanocobalamin (Vitamin B-12) [Vitamin B-12] 1,000 mcg PO DAILY Vitamin E 400 unit PO DAILY Cholestyramine (with Sugar) [Questran Packet] 4 gm PO BID Cranberry [id number] Cap 1 cap PO BID Brimonidine Tartrate [Alphagan P 0.2% Ophth Soln] 1 drop RIGHT EYE BID Butalb/APAP/Caff 50-325-40Mg [Fioricet 50-325-40] 1 tab PO TID PRN PRN Reason: Migraine Headache Pantoprazole Sodium [Protonix] 40 mg PO DAILY Hydrocortisone [Cortef] 5 mg PO HS #0 Hydrocortisone [Cortef] 10 mg PO DAILY@1200 #0 Hydrocortisone [Cortef] 15 mg PO DAILY #0 Nystatin 100,000 Unit/gm Powd [Mycostatin Powder] 1 applic TOPICAL BID PRN PRN Reason: Skin Irritation Multivitamins, Thera [Multivitamin (formulary)] 1 tab PO DAILY Glucagon [Gvoke Pfs 1-Pack Syringe] 1 mg SQ ONCE PRN PRN Reason: severe hypoglycemia Metoclopramide HCl [Reglan] 5 mg PO TID PRN PRN Reason: Nausea Cephalexin [Keflex] 250 mg PO HS busPIRone HCl [Buspar] 5 mg PO BID Nystatin 1 applic TOPICAL BID PRN PRN Reason: Skin Irritation Insulin Aspart (For Pump) [NovoLOG (For Pump)] 0.01 unit SQ-PUMP CONTINUOUS Discontinued Atorvastatin [Lipitor] 40 mg PO HS #30 tab lisinopriL 40 mg PO DAILY Discharge Medication List Cholecalciferol [Vitamin D3 (25 Mcg = 1000 Iu)] 25 mcg PO DAILY 12/01/14 [History] Metoprolol Succinate (ER) [Toprol XL] 50 mg PO HS 07/06/17 [History] Meclizine [Antivert] 25 mg PO BID PRN 11/26/17 [History] Aspirin 81 mg PO DAILY #0 07/02/18 [Rx] Ferrous Sulfate [Iron (65 MG Elemental)] 325 mg PO DAILY 10/08/18 [History] Folic Acid 0.4 mg PO DAILY 10/08/18 [History] L.acidoph,Paracasei, B.lactis [Probiotic] 1 cap PO BID 10/08/18 [History] Melatonin 5 mg PO HS PRN 10/08/18 [History] Potassium 99 mg PO DAILY 10/08/18 [History] Thiamine [Vitamin B-1] 100 mg PO DAILY 10/08/18 [History] Vitamin B-Complex Drops 1 ml PO BID 10/08/18 [History] Venlafaxine HCl [Effexor XR] 75 mg PO DAILY 11/08/19 [History] Magnesium Oxide [Mag-Ox] 400 mg PO BID 12/06/19 [History] Gabapentin [Neurontin] 100 mg PO TID #9 cap 03/24/20 [Rx] HYDROcodone/APAP 10-325MG [[place] 10-325] 1 tab PO QID PRN 04/16/20 [History] C,E,Zinc,Copper 11/Xzypa7n/Lut [Ocuvite Adult 50 Plus Softgel] 1 cap PO DAILY 06/25/20 [History] Cyanocobalamin (Vitamin B-12) [Vitamin B-12] 1,000 mcg PO DAILY 06/25/20 [History] Spironolactone 50 mg PO DAILY 06/25/20 [History] Vitamin E 400 unit PO DAILY 06/25/20 [History] Brimonidine Tartrate [Alphagan P 0.2% Ophth Soln] 1 drop RIGHT EYE BID 11/26/20 [History] Butalb/APAP/Caff 50-325-40Mg [Fioricet 50-325-40] 1 tab PO TID PRN 11/26/20 [History] Cholestyramine (with Sugar) [Questran Packet] 4 gm PO BID 11/26/20 [History] Cranberry [id number] Cap 1 cap PO BID 11/26/20 [History] Glucagon [Gvoke Pfs 1-Pack Syringe] 1 mg SQ ONCE PRN 11/26/20 [History] Metoclopramide HCl [Reglan] 5 mg PO TID PRN 11/26/20 [History] Pantoprazole Sodium [Protonix] 40 mg PO DAILY 11/26/20 [History] Cephalexin [Keflex] 250 mg PO HS 12/11/20 [History] Hydrocortisone [Cortef] 5 mg PO HS #0 12/16/20 [Rx] Hydrocortisone [Cortef] 10 mg PO DAILY@1200 #0 12/16/20 [Rx] Hydrocortisone [Cortef] 15 mg PO DAILY #0 12/16/20 [Rx] busPIRone HCl [Buspar] 5 mg PO BID 02/04/21 [History] Multivitamins, Thera [Multivitamin (formulary)] 1 tab PO DAILY 02/17/21 [History] Nystatin 1 applic TOPICAL BID PRN 02/17/21 [History] Nystatin 100,000 Unit/gm Powd [Mycostatin Powder] 1 applic TOPICAL BID PRN 02/17/21 [History] Insulin Aspart (For Pump) [NovoLOG (For Pump)] 0.01 unit SQ-PUMP CONTINUOUS 03/03/21 [History] lisinopriL [Zestril] 20 mg PO DAILY tab 03/04/21 [Rx] Follow up Appointment(s)/Referral(s): Andrew Gonsales MD [Primary Care Provider] - 1-2 days Warren Rosenberg MD [STAFF PHYSICIAN] - 2 Weeks [facility], [NON-STAFF] - [facility] [NON-STAFF] - Activity/Diet/Wound Care/Special Instructions: Patient is educated to increase her oral intake Patient is to resume her insulin pump Please have patient make an appointment with her bingo clerk Discharge Disposition: HOME SELF-CARE
[2021-03-04] MEDS: MAGNESIUM SULFATE-D5W PMX 1 GM in DEXTROSE/WATER 1 100ML.BAG IVPB SCH ×2 (14:30→15:48)
[2021-03-04 15:33] VITALS: BMI 30.1
[2021-03-04 16:33] VITALS: BP 139/78; PULSE 122; TEMP 99.1
[2021-03-04 16:42] LABS: Glucose,Whole Blood 265 mg/dL (75-99)
[2021-03-04] MEDS ORDERED: ATORVASTATIN 40 MG TAB PO SCH (21:00)
[2021-03-04] MEDS ORDERED: METOPROLOL SUCCINATE (ER) 50 MG TAB.ER.24H PO SCH (21:00)
[2021-03-05] MEDS ORDERED: lisinopriL 20 MG TAB PO SCH (09:00)
== END 2021-03-04 17:50 | disposition home or self-care (01) ==
LOC: EC 20:01 → 3SCARD 22:38
PROVIDERS: ADMIT Family Medicine; ATTEND Family Medicine
DX: R53.1 Weakness (principal); R63.8 Other symptoms and signs concerning food and fluid intake; R94.31 Abnormal electrocardiogram [ECG] [EKG]; R19.7 Diarrhea, unspecified; E83.42 Hypomagnesemia; E11.649 Type 2 diabetes mellitus with hypoglycemia without coma; E03.9 Hypothyroidism, unspecified; I10 Essential (primary) hypertension; E27.40 Unspecified adrenocortical insufficiency; R11.0 Nausea; M79.7 Fibromyalgia; R10.30 Lower abdominal pain, unspecified; E27.9 Disorder of adrenal gland, unspecified; E78.5 Hyperlipidemia, unspecified; E11.40 Type 2 diabetes mellitus with diabetic neuropathy, unspecified; G47.33 Obstructive sleep apnea (adult) (pediatric); E21.3 Hyperparathyroidism, unspecified; G62.9 Polyneuropathy, unspecified; M15.9 Polyosteoarthritis, unspecified; M54.81 Occipital neuralgia; F32.9 Major depressive disorder, single episode, unspecified; R42 Dizziness and giddiness; I25.10 Atherosclerotic heart disease of native coronary artery without angina pectoris; R77.8 Other specified abnormalities of plasma proteins; R32 Unspecified urinary incontinence; Z20.822 Contact with and (suspected) exposure to COVID-19; Z96.41 Presence of insulin pump (external) (internal); Z86.718 Personal history of other venous thrombosis and embolism; Z87.01 Personal history of pneumonia (recurrent); Z87.09 Personal history of other diseases of the respiratory system; Z86.19 Personal history of other infectious and parasitic diseases; Z86.31 Personal history of diabetic foot ulcer; Z86.14 Personal history of Methicillin resistant Staphylococcus aureus infection; Z86.711 Personal history of pulmonary embolism; Z87.440 Personal history of urinary (tract) infections; Z87.442 Personal history of urinary calculi; Z16.24 Resistance to multiple antibiotics; Z90.49 Acquired absence of other specified parts of digestive tract; Z90.710 Acquired absence of both cervix and uterus; Z89.431 Acquired absence of right foot; Z98.1 Arthrodesis status; Z79.82 Long term (current) use of aspirin; Z79.899 Other long term (current) drug therapy; Z79.4 Long term (current) use of insulin; Z88.5 Allergy status to narcotic agent; Z88.0 Allergy status to penicillin; Z88.2 Allergy status to sulfonamides; Z88.8 Allergy status to other drugs, medicaments and biological substances; Z88.1 Allergy status to other antibiotic agents; Z91.02 Food additives allergy status; Z82.49 Family history of ischemic heart disease and other diseases of the circulatory system; Z83.3 Family history of diabetes mellitus; Z82.3 Family history of stroke; Z80.49 Family history of malignant neoplasm of other genital organs; Z83.6 Family history of other diseases of the respiratory system
CPT/HCPCS: 96376; 96365; 96361; 96375; 99285; 36415; 93005; 97162; 97166; 80048 ×2; 82550; 83735 ×2; 84484 ×2; 85025; 81001; 87324; 87635; G0378 ×2; J3475; J1170 ×2

== ENCOUNTER → 2021-04-05 | Outpatient (CLI) | payer MEDICARE, BC ==
[2021-04-05 21:02] LABS: African American GFR (CKD) 91.2 (60.0-200.0); Albumin 4.2 g/dL (3.8-4.9); Anion Gap 13.1 mmol/L (4.00-12.00); Blood Urea Nitrogen 22.3 mg/dL (9.0-27.0); Carbon Dioxide 21.4 mmol/L (21.6-31.8); Non-African American GFR(CKD) 78.7 (60.0-200.0); Potassium 4.1 mmol/L (3.5-5.5)
== END | disposition home or self-care (01) ==
LOC: LABWHC1 11:54
PROVIDERS: ATTEND Internal Medicine Endocrinology, Diabetes & Metabolism
DX: Z46.81 Encounter for fitting and adjustment of insulin pump (principal); E11.21 Type 2 diabetes mellitus with diabetic nephropathy; E11.65 Type 2 diabetes mellitus with hyperglycemia; E27.49 Other adrenocortical insufficiency; M81.0 Age-related osteoporosis without current pathological fracture
CPT/HCPCS: 36415; 80051; 82040; 82565; 83735; 84244; 84520

== ENCOUNTER → 2021-07-20 | Outpatient (CLI) | payer MEDICARE, BC ==
[2021-07-20 18:35] LABS: African American GFR (CKD) 74.6 (60.0-200.0); Albumin 4.4 g/dL (3.8-4.9); Anion Gap 13.7 mmol/L (10.00-18.00); Blood Urea Nitrogen 23.4 mg/dL (9.0-27.0); Carbon Dioxide 27.3 mmol/L (20.0-27.5); Magnesium 2.3 mg/dL (1.5-2.4); Non-African American GFR(CKD) 64.3 (60.0-200.0); Potassium 4.6 mmol/L (3.5-5.5)
[2021-07-20 20:32] LABS: Total Protein 24 Hour,Urine 16.4 mg/dL (0.0-165.0)
[2021-07-21 02:21] LABS: Total Volume 24 Hour,Urine 2225 mL
[2021-07-21 10:30] LABS: Creatinine 24 Hour,Urine 1.64 g/24Hr (0.80-1.80)
== END | disposition home or self-care (01) ==
LOC: LABWHC1 12:01
PROVIDERS: ATTEND Internal Medicine Endocrinology, Diabetes & Metabolism
DX: E11.21 Type 2 diabetes mellitus with diabetic nephropathy (principal); E11.65 Type 2 diabetes mellitus with hyperglycemia; E27.49 Other adrenocortical insufficiency
CPT/HCPCS: 36415; 80051; 81050; 82024; 82040; 82565; 82570; 83735; 84156; 84244; 84443; 84450; 84460; 84520

== ENCOUNTER 2021-08-15 14:12 | Inpatient (IN) | payer MEDICARE, BC ==
[2021-08-15 14:53] LABS: Basophils % (A) 0 %; Eosinophils # (A) 0.2 k/uL (0-0.7); Eosinophils % (A) 2 %; HGB 13.5 gm/dL (11.4-16.0); Lymphocytes # (A) 1.4 k/uL (1.0-4.8); Lymphocytes % (A) 14 %; MCH 30.6 pg (25.0-35.0); MCHC 32.2 g/dL (31.0-37.0); MCV 95.1 fL (80.0-100.0); Mean Platelet Volume 8.2; Monocytes # (A) 0.5 k/uL (0-1.0); Monocytes % (A) 5 %; Neutrophils # (A) 7.3 k/uL (1.3-7.7); Neutrophils % (A) 77 %; Platelet Count 223 k/uL (150-450); RBC 4.42 m/uL (3.80-5.40); RDW 15.2 % (11.5-15.5); WBC 9.5 k/uL (3.8-10.6)
[2021-08-15] MEDS ORDERED: ONDANSETRON 4 MG/2 ML VIAL IVP STA (14:54)
[2021-08-15] MEDS ORDERED: HYDROmorphone 0.5 MG/0.5 ML SYRINGE IVP STA (14:54)
--- NOTE | 2021-08-15 14:58 | ED ---
General Adult HPI - General Chief complaint: Back Pain/Injury Stated complaint: Right flank pain Time Seen by Provider: 08/15/21 14:13 Source: patient, EMS Mode of arrival: EMS Limitations: no limitations - History of Present Illness Initial comments: Dictation was produced using [employer] dictation software. please excuse any grammatical, word or spelling errors. Chief Complaint: 70-year-old female well-known to emergency Department presents to emergency room for right-sided flank pain and headache History of Present Illness: She is 70-year-old female she is well-known to emergency for for multiple visitations for a myriad of complaints. Patient's history of [place]'s disease. Over the last several months she's been well-cont rolled on outpatient basis. Over the last 2 days she is had right-sided flank pain and headache. She states her headache is typical for her usual migraines. She has this right-sided flank pain. Nonradiating. She has history of kidney stones but her symptoms don't feel like kidney stones. She is told that her symptoms could reflect symptoms of her [place]'s disease. Patient states pain does not radiate to her groin. She does not have any nausea vomiting. States that the pain is constant and not colicky. She does complain of some mild urinary discomfort. The ROS documented in this emergency department record has been reviewed and confirmed by me. Those systems with pertinent positive or negative responses have been documented in the HPI. All other systems are other negative and/or noncontributory. PHYSICAL EXAM: General Impression: Alert and oriented x3, not in acute distress HEENT: Normocephalic atraumatic, extra-ocular movements intact, pupils equal and reactive to light bilaterally, mucous membranes moist. Cardiovascular: Heart regular rate and rhythm Chest: Able to complete full sentences, no retractions, no tachypnea Abdomen: abdomen soft, non-tender, non-distended, no organomegaly Musculoskeletal: Pulses present and equal in all extremities, no peripheral siri a Motor: no focal deficits noted Neurological: CN II-XII grossly intact, no focal motor or sensory deficits noted Skin: Intact with no visualized rashes Psych: Normal affect and mood ED course: 70-year-old well-appearing female presents to the emergency department for flank pain and headache. She is well-appearing with no neurologic issues. She states that her headache is typical for her usual migraines. Patient has some flank pain that is constant colicky nature however she says she does have history of kidney stones. She also does have urinary symptoms. Vital signs upon arrival are within acceptable limits. Patient has some flank pain suggesting pyelonephritis. Laboratory evaluation obtained. CBC unremarkable. Metabolic panel is negative. Urinalysis shows 12 white blood cells. Patient has history of ESBL however according to her last microbiology studies of the urine she had a broad please sensitive E. coli. Disposition options discussed with patient. She feels more comfortable being admitted to the hospital considering her comorbidities and history of ESBL. Patient during one of her recent visits was admitted for UTI. She was given ertapenem and tolerated it well before she was converted to Macrobid. She'll be admitted to [facility] hospitalist group who is covering for Dr. Gonsales - Related Data Home Medications Medication Instructions Recorded Confirmed Cholecalciferol [Vitamin D3 (25 25 mcg PO DAILY 12/01/14 08/15/21 Mcg = 1000 Iu)] Metoprolol Succinate (ER) [Toprol 100 mg PO HS 07/06/17 08/15/21 XL] Meclizine [Antivert] 25 mg PO QID PRN 11/26/17 08/15/21 Ferrous Sulfate [Iron (65 MG 325 mg PO DAILY 10/08/18 08/15/21 Elemental)] Folic Acid 0.4 mg PO DAILY 10/08/18 08/15/21 L.acidoph,Paracasei, B.lactis 2 cap PO BID 10/08/18 08/15/21 [Probiotic] Melatonin 5 mg PO HS PRN 10/08/18 08/15/21 Potassium 99 mg PO DAILY 10/08/18 08/15/21 Thiamine [Vitamin B-1] 100 mg PO DAILY 10/08/18 08/15/21 Vitamin B-Complex Drops 1 ml PO BID 10/08/18 08/15/21 Magnesium Oxide [Mag-Ox] 400 mg PO DAILY 12/06/19 08/15/21 HYDROcodone/APAP 10-325MG [[place] 1 tab PO QID PRN 04/16/20 08/15/21 10-325] C,E,Zinc,Copper 11/Teezz3r/Lut 1 cap PO DAILY 06/25/20 08/15/21 [Ocuvite Adult 50 Plus Softgel] Cyanocobalamin (Vitamin B-12) 1,000 mcg PO DAILY 06/25/20 08/15/21 [Vitamin B-12] Spironolactone 50 mg PO DAILY 06/25/20 08/15/21 Vitamin E 400 unit PO DAILY 06/25/20 08/15/21 Brimonidine Tartrate [Alphagan P 1 drop RIGHT EYE BID 11/26/20 08/15/21 0.2% Ophth Soln] Butalb/APAP/Caff 50-325-40Mg 1 tab PO TID PRN 11/26/20 08/15/21 [Fioricet 50-325-40] Glucagon [Gvoke Pfs 1-Pack Syringe] 1 mg SQ ONCE PRN 11/26/20 08/15/21 Pantoprazole Sodium [Protonix] 40 mg PO DAILY 11/26/20 08/15/21 Cephalexin [Keflex] 250 mg PO HS 12/11/20 08/15/21 busPIRone HCl [Buspar] 5 mg PO BID 02/04/21 08/15/21 Nystatin 1 applic TOPICAL BID PRN 02/17/21 08/15/21 Insulin Aspart (For Pump) [NovoLOG 0.01 unit SQ-PUMP CONTINUOUS 03/03/21 08/15/21 (For Pump)] Cranberry Fruit Extract [Cranberry] 1,500 mg PO BID 08/15/21 08/15/21 Escitalopram [Lexapro] 10 mg PO HS 08/15/21 08/15/21 Liquid Multi Vitamin 1 oz PO DAILY 08/15/21 08/15/21 Ondansetron [Zofran] 4 mg PO Q6H PRN 08/15/21 08/15/21 Promethazine HCl [Phenergan Syrup] 6.25 mg PO Q6H PRN 08/15/21 08/15/21 Rosuvastatin Calcium [Crestor] 5 mg PO HS 08/15/21 08/15/21 lisinopriL 40 mg PO DAILY 08/15/21 08/15/21 Previous Rx's Medication Instructions Recorded Aspirin 81 mg PO DAILY #0 07/02/18 Gabapentin [Neurontin] 100 mg PO TID #9 cap 03/24/20 Hydrocortisone [Cortef] 5 mg PO HS #0 12/16/20 Hydrocortisone [Cortef] 10 mg PO DAILY@1200 #0 12/16/20 Hydrocortisone [Cortef] 15 mg PO DAILY #0 12/16/20 Allergies Allergy/AdvReac Type Severity Reaction Status Date / Time butorphanol tartrate Allergy BLISTERS Verified 08/15/21 16:02 [From Stadol] IN MOUTH ceftriaxone [From Rocephin] Allergy Unknown Verified 08/15/21 16:02 clarithromycin [From Biaxin] Allergy Rash/Hives Verified 08/15/21 16:02 clindamycin Allergy Unknown Verified 08/15/21 16:02 codeine Allergy Rash/Hives Verified 08/15/21 16:02 ergotamine tartrate Allergy Unknown Verified 08/15/21 16:02 [From Cafergot] erythromycin base Allergy RASH, GI Verified 08/15/21 16:02 [From E-Mycin] SYMPTOMS ketorolac tromethamine Allergy Rash/Hives Verified 08/15/21 16:02 [From Toradol] liraglutide [From Victoza] Allergy Rash/Hives Verified 08/15/21 16:02 morphine Allergy Rash/Hives Verified 08/15/21 16:02 Penicillins Allergy Rash/Hives Verified 08/15/21 16:02 pentazocine lactate Allergy SEVERE Verified 08/15/21 16:02 [From Talwin] BLISTERS IN MOUTH pregabalin [From Lyrica] Allergy Rash/Hives Verified 08/15/21 16:02 propoxyphene HCl Allergy Rash/Hives Verified 08/15/21 16:02 [From Darvon] Sulfa (Sulfonamide Allergy Rash/Hives Verified 08/15/21 16:02 Antibiotics) tramadol Allergy Unknown Verified 08/15/21 16:02 monosodium glutamate [MSG] AdvReac Nausea & Verified 08/15/21 16:02 Vomiting nalbuphine HCl [From Nubain] AdvReac Nausea & Verified 08/15/21 16:02 Vomiting Review of Systems ROS Statement: Those systems with pertinent positive or pertinent negative responses have been documented in the HPI. ROS Other: All systems not noted in ROS Statement are negative. 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, DVT R calf in 1976, cardiac murmur, occipital neuraligia, balance issues-has narrowing of vessels "in the back of my head", vertigo, varicosities, states rt shoulder torn rotator cuff History of Any Multi-Drug Resistant Organisms: ESBL, MRSA, VRE Date of last positivie culture/infection: 11/25/20 ESBL;12/06/19 VRE; 03/10/11 MRSA MDRO Source:: Urine ESBL; Urine-VRE: MRSA 4th Right TOE Past Surgical History: Appendectomy, Back Surgery, Bladder Surgery, Breast Surgery, Cholecystectomy, Heart Catheterization, Hysterectomy, Orthopedic Surgery, Tonsillectomy Additional Past Surgical History / Comment(s): Lumbar fusions, bladder suspension, occipital nerve blocks, 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, R wrist/elbow nerve repair, bone removed R shoulder, 4th toe R foot partial amputation, bilateral feet/bunionectomies, R knee arthroscopies, R orbit decompression with ethmoidectomy and eyelid lift, EGD, colonoscopies, cystocopies, lithotripsy/stents, bilateral breast reduction, bilateral cataract removals, parathyroid surgery - April 2019, pain clinic procedures Past Anesthesia/Blood Transfusion Reactions: No Reported Reaction Additional Past Anesthesia/Blood Transfusion Reaction / Comment(s): never recieved blood Past Psychological History: Depression Smoking Status: Never smoker Past Alcohol Use History: Rare Past Drug Use History: None Reported - Past Family History Father Family Medical History: Coronary Artery Disease (CAD), CVA/TIA, Diabetes [place] itus, Myocardial Infarction ([place]), Pneumonia Additional Family Medical History / Comment(s): Father at the age of 78yrs from [place] and pneumonia. Mother Family Medical History: Cancer, Congestive Heart Failure (CHF) Additional Family Medical History / Comment(s): Mother had uterine cancer. She recently at the age of 96yrs old from shingles. General Exam Limitations: no limitations Course Vital Signs 08/15/21 08/15/21 08/15/21 14:17 16:00 18:00 Temperature 98.2 F Pulse Rate 83 81 83 Respiratory 16 18 16 Rate Blood Pressure 188/98 130/79 125/78 O2 Sat by Pulse 93 L 96 97 Oximetry 08/15/21 20:00 Temperature Pulse Rate 93 Respiratory 16 Rate Blood Pressure 155/91 O2 Sat by Pulse 96 Oximetry Medical Decision Making - Lab Data Result diagrams: 08/15/21 14:33 08/15/21 14:33 Lab Results 08/15/21 08/15/21 08/15/21 Range/Units 14:33 14:33 14:42 WBC 9.5 (3.8-10.6) k/uL RBC 4.42 (3.80-5.40) m/uL Hgb 13.5 (11.4-16.0) gm/dL Hct 42.0 (34.0-46.0) % MCV 95.1 (80.0-100.0) fL MCH 30.6 (25.0-35.0) pg MCHC 32.2 (31.0-37.0) g/dL RDW 15.2 (11.5-15.5) % Plt Count 223 (150-450) k/uL MPV 8.2 Neutrophils % 77 % Lymphocytes % 14 % Monocytes % 5 % Eosinophils % 2 % Basophils % 0 % Neutrophils # 7.3 (1.3-7.7) k/uL Lymphocytes # 1.4 (1.0-4.8) k/uL Monocytes # 0.5 (0-1.0) k/uL Eosinophils # 0.2 (0-0.7) k/uL Basophils # 0.0 (0-0.2) k/uL Sodium 136 L (137-145) mmol/L Potassium 3.6 (3.5-5.1) mmol/L Chloride 107 (98-107) mmol/L Carbon Dioxide 21 L (22-30) mmol/L Anion Gap 8 mmol/L BUN 12 (7-17) mg/dL Creatinine 0.67 (0.52-1.04) mg/dL Est GFR (CKD-EPI)AfAm >90 (>60 ml/min/1.73 sqM) Est GFR (CKD-EPI)NonAf 89 (>60 ml/min/1.73 sqM) Glucose 110 H (74-99) mg/dL Calcium 9.3 (8.4-10.2) mg/dL Lipase 35 (23-300) U/L Urine Color Yellow Urine Appearance Clear (Clear) Urine pH 5.5 (5.0-8.0) Ur Specific [place] 1.022 (1.001-1.035) Urine Protein Trace H (Negative) Urine Glucose (UA) Negative (Negative) Urine Ketones 1+ H (Negative) Urine Blood Negative (Negative) Urine Nitrite Negative (Negative) Urine Bilirubin Negative (Negative) Urine Urobilinogen <2.0 (<2.0) mg/dL Ur Leukocyte Esterase Moderate H (Negative) Urine RBC 1 (0-5) /hpf Urine WBC 12 H (0-5) /hpf Ur Squamous Epith Cells 1 (0-4) /hpf Hyaline Casts 11 H (0-2) /lpf Urine Mucus Rare H (None) /hpf Disposition Clinical Impression: UTI (urinary tract infection), History of ESBL E. coli infection Disposition: ADMITTED IP TO THIS HOSP Condition: Fair
[2021-08-15 14:59] LABS: Appearance,Urine Clear (Clear); Bilirubin,Urine Negative (Negative); Blood,Urine Negative (Negative); Color,Urine Yellow; Glucose,Urine (UA) Negative (Negative); Hyaline Casts,Urine 11 /lpf (0-2); Ketones,Urine 1+ (Negative); Leukocyte Esterase,Urine Moderate (Negative); Mucus,Urine Rare /hpf; Nitrite,Urine Negative (Negative); PH, Urine 5.5 (5.0-8.0); Protein,Urine Trace (Negative); RBC,Urine 1 /hpf (0-5); Specific Gravity,Urine 1.022 (1.001-1.035); Squamous Epithelial Cell,Urine 1 /hpf (0-4); Urobilinogen,Urine <2.0 mg/dL (<2.0); WBC,Urine 12 /hpf (0-5)
[2021-08-15 15:10] LABS: African American GFR (CKD) >90 (>60 ml/min/1.73 sqM); Anion Gap 8 mmol/L; Blood Urea Nitrogen 12 mg/dL (7-17); Calcium 9.3 mg/dL (8.4-10.2); Carbon Dioxide 21 mmol/L (22-30); Chloride 107 mmol/L (98-107); Glucose 110 mg/dL (74-99); Lipase 35 U/L (23-300); Non-African American GFR(CKD) 89 (>60 ml/min/1.73 sqM); Sodium 136 mmol/L (137-145)
[2021-08-15 15:11] LABS: Potassium 3.6 mmol/L (3.5-5.1)
[2021-08-15] MEDS ORDERED: HYDROmorphone 0.5 MG/0.5 ML SYRINGE IVP PRN (15:39)
[2021-08-15] MEDS ORDERED: NALOXONE 0.4 MG/ML 1 ML VIAL IV PRN (15:39)
[2021-08-15] MEDS ORDERED: ERTAPENEM 1 GM in SODIUM CHLORIDE 0.9% 50 ML IVPB STA (15:41)
[2021-08-15] MEDS: SODIUM CHLORIDE 0.9% 1,000 ML IV SCH (15:57)
--- NOTE | 2021-08-15 16:17 | US ---
EXAMINATION TYPE: US kidneys/renal and bladder DATE OF EXAM: 08/15/2021 COMPARISON: NONE CLINICAL HISTORY: flank pain. rt flank pain EXAM MEASUREMENTS: Right Kidney: 9.5 x 4.8 x 4.0 cm Left Kidney: 9.9 x 4.7 x 3.3 cm Right Kidney: Cystic area seen mid pole 2.5 x 2.3 x Left Kidney: Cystic area seen superior 3.1 x 3.3 x 4.1 cm. Bladder: Not full Bilateral Jets seen: No There is no evidence for hydronephrosis at this point in time. No nephrolithiasis is seen. No leodan s are identified. IMPRESSION: There are bilateral renal cortical cysts. No evidence of a solid renal mass. No evidence of renal obs truction. Urinary bladder not well evaluated. Bladder empty during the exam.
--- NOTE | 2021-08-15 21:04 | P.HPIM ---
History of Present Illness H&P Date: 08/15/21 Chief Complaint: Right flank pain Patient is a 70-year-old female with a known history of hypertension, hyperlipidemia, diabetes type 2 insulin-dependent, obstructive sleep apnea, bilateral peripheral neuropathy diabetic, history of multiple UTIs and prior history of ESBL E. coli infection, adrenal insufficiency, hyperparathyroidism status post surgery, degenerative joint disease, occipital neuralgia and other multiple medical problems came to ER with complaints of right flank pain for the past 3 days. Pain is mainly in the right flank and without any radiation to the groin. Patient is also complaining of headache. Patient felt warm at home. Denied any complaints of nausea or vomiting. No recent illnesses. Complains of dysuria as well. Denies any complaints of chest pain or shortness of breath. Patient does have history of nephrolithiasis. Due to ongoing symptoms patient presents to ER. Ultrasound abdominal bladder showed bilateral renal cortical cysts. No evidence of solid renal mass. No evidence of renal obstruction. Urinary bladder not well evaluated. Bladder empty during exam. Patient has been afebrile on admission. Laboratory data showed WBC 9.5 hemoglobin 13.5 platelets 223 Sodium 136 potassium 3.6 chloride 107 bicarb is 21 BUN 12 and creatinine 0.67 blood sugar is 110 Urinalysis showed trace protein 1+ ketones moderate leukoesterase with RBCs 1 and WBC is 12 squamous epithelial cells 1. Nitrite negative. Review of Systems Constitutional: Patient does have subjective fevers. No chills. . No generali zed weakness or weight loss. Abdomen: Patient denied nausea vomiting and diarrhea and abdominal pain. Cardiovascular: Patient denies any chest pain or short of breath no palpitations. Respiratory: patient denied any cough or sputum production. No shortness of breath Neurologic: Patient denied any numbness or tingling headache. Musculoskeletal: Patient denies any complaints of joint swelling or deformity. Skin: Negative Psychiatric: Negative Endocrine: No heat or cold intolerance. No recent weight gain. Genitourinary: dysuria and Right flank pain. no hematuria. All other 14 point ROS negative except the above 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, DVT R calf in 1976, cardiac murmur, occipital neuraligia, balance issues-has narrowing of vessels "in the back of my head", vertigo, varicosities, states rt shoulder torn rotator cuff History of Any Multi-Drug Resistant Organisms: ESBL, MRSA, VRE Date of last positivie culture/infection: 11/25/20 ESBL;12/06/19 VRE; 03/10/11 MRSA MDRO Source:: Urine ESBL; Urine-VRE: MRSA 4th Right TOE Past Surgical History: Appendectomy, Back Surgery, Bladder Surgery, Breast Surgery, Cholecystectomy, Heart Catheterization, Hysterectomy, Orthopedic Surgery, Tonsillectomy Additional Past Surgical History / Comment(s): Lumbar fusions, bladder suspe nsion, occipital nerve blocks, 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, R wrist/elbow nerve repair, bone removed R shoulder, 4th toe R foot partial amputation, bilateral feet/bunionectomies, R knee arthroscopies, R orbit decompression with ethmoidectomy and eyelid lift, EGD, colonoscopies, cystocopies, lithotripsy/stents, bilateral breast reduction, bilateral cataract removals, parathyroid surgery - April 2019, pain clinic procedures Past Anesthesia/Blood Transfusion Reactions: No Reported Reaction Additional Past Anesthesia/Blood Transfusion Reaction / Comment(s): never recieved blood Past Psychological History: Depression Smoking Status: Never smoker Past Alcohol Use History: Rare Past Drug Use History: None Reported - Past Family History Father Family Medical History: Coronary Artery Disease (CAD), CVA/TIA, Diabetes Mellitus, Myocardial Infarction ([place]), Pneumonia Additional Family Medical History / Comment(s): Father at the age of 78yrs from [place] and pneumonia. Mother Family Medical History: Cancer, Congestive Heart Failure (CHF) Additional Family Medical History / Comment(s): Mother had uterine cancer. She recently at the age of 96yrs old from shingles. Medications and Allergies Home Medications Medication Instructions Recorded Confirmed Type Cholecalciferol [Vitamin D3 (25 25 mcg PO DAILY 12/01/14 08/15/21 History Mcg = 1000 Iu)] Metoprolol Succinate (ER) [Toprol 100 mg PO HS 07/06/17 08/15/21 History XL] Meclizine [Antivert] 25 mg PO QID PRN 11/26/17 08/15/21 History Aspirin 81 mg PO DAILY #0 07/02/18 08/15/21 Rx Ferrous Sulfate [Iron (65 MG 325 mg PO DAILY 10/08/18 08/15/21 History Elemental)] Folic Acid 0.4 mg PO DAILY 10/08/18 08/15/21 History L.acidoph,Paracasei, B.lactis 2 cap PO BID 10/08/18 08/15/21 History [Probiotic] Melatonin 5 mg PO HS PRN 10/08/18 08/15/21 History Potassium 99 mg PO DAILY 10/08/18 08/15/21 History Thiamine [Vitamin B-1] 100 mg PO DAILY 10/08/18 08/15/21 History Vitamin B-Complex Drops 1 ml PO BID 10/08/18 08/15/21 History Magnesium Oxide [Mag-Ox] 400 mg PO DAILY 12/06/19 08/15/21 History Gabapentin [Neurontin] 100 mg PO TID #9 cap 03/24/20 08/15/21 Rx HYDROcodone/APAP 10-325MG [[place] 1 tab PO QID PRN 04/16/20 08/15/21 History 10-325] C,E,Zinc,Copper 11/Paqok5q/Lut 1 cap PO DAILY 06/25/20 08/15/21 History [Ocuvite Adult 50 Plus Softgel] Cyanocobalamin (Vitamin B-12) 1,000 mcg PO DAILY 06/25/20 08/15/21 History [Vitamin B-12] Spironolactone 50 mg PO DAILY 06/25/20 08/15/21 History Vitamin E 400 unit PO DAILY 06/25/20 08/15/21 History Brimonidine Tartrate [Alphagan P 1 drop RIGHT EYE BID 11/26/20 08/15/21 History 0.2% Ophth Soln] Butalb/APAP/Caff 50-325-40Mg 1 tab PO TID PRN 11/26/20 08/15/21 History [Fioricet 50-325-40] Glucagon [Gvoke Pfs 1-Pack Syringe] 1 mg SQ ONCE PRN 11/26/20 08/15/21 History Pantoprazole Sodium [Protonix] 40 mg PO DAILY 11/26/20 08/15/21 History Cephalexin [Keflex] 250 mg PO HS 12/11/20 08/15/21 History Hydrocortisone [Cortef] 5 mg PO HS #0 12/16/20 08/15/21 Rx Hydrocortisone [Cortef] 10 mg PO DAILY@1200 #0 12/16/20 08/15/21 Rx Hydrocortisone [Cortef] 15 mg PO DAILY #0 12/16/20 08/15/21 Rx busPIRone HCl [Buspar] 5 mg PO BID 02/04/21 08/15/21 History Nystatin 1 applic TOPICAL BID PRN 02/17/21 08/15/21 History Insulin Aspart (For Pump) [NovoLOG 0.01 unit SQ-PUMP CONTINUOUS 03/03/21 08/15/21 History (For Pump)] Cranberry Fruit Extract [Cranberry] 1,500 mg PO BID 08/15/21 08/15/21 History Escitalopram [Lexapro] 10 mg PO HS 08/15/21 08/15/21 History Liquid Multi Vitamin 1 oz PO DAILY 08/15/21 08/15/21 History Ondansetron [Zofran] 4 mg PO Q6H PRN 08/15/21 08/15/21 History Promethazine HCl [Phenergan Syrup] 6.25 mg PO Q6H PRN 08/15/21 08/15/21 History Rosuvastatin Calcium [Crestor] 5 mg PO HS 08/15/21 08/15/21 History lisinopriL 40 mg PO DAILY 08/15/21 08/15/21 History Allergies Allergy/AdvReac Type Severity Reaction Status Date / Time butorphanol tartrate Allergy BLISTERS Verified 08/15/21 16:02 [From Stadol] IN MOUTH ceftriaxone [From Rocephin] Allergy Unknown Verified 08/15/21 16:02 clarithromycin [From Biaxin] Allergy Rash/Hives Verified 08/15/21 16:02 clindamycin Allergy Unknown Verified 08/15/21 16:02 codeine Allergy Rash/Hives Verified 08/15/21 16:02 ergotamine tartrate Allergy Unknown Verified 08/15/21 16:02 [From Cafergot] erythromycin base Allergy RASH, GI Verified 08/15/21 16:02 [From E-Mycin] SYMPTOMS ketorolac tromethamine Allergy Rash/Hives Verified 08/15/21 16:02 [From Toradol] liraglutide [From Victoza] Allergy Rash/Hives Verified 08/15/21 16:02 morphine Allergy Rash/Hives Verified 08/15/21 16:02 Penicillins Allergy Rash/Hives Verified 08/15/21 16:02 pentazocine lactate Allergy SEVERE Verified 08/15/21 16:02 [From Talwin] BLISTERS IN MOUTH pregabalin [From Lyrica] Allergy Rash/Hives Verified 08/15/21 16:02 propoxyphene HCl Allergy Rash/Hives Verified 08/15/21 16:02 [From Darvon] Sulfa (Sulfonamide Allergy Rash/Hives Verified 08/15/21 16:02 Antibiotics) tramadol Allergy Unknown Verified 08/15/21 16:02 monosodium glutamate [MSG] AdvReac Nausea & Verified 08/15/21 16:02 Vomiting nalbuphine HCl [From Nubain] AdvReac Nausea & Verified 08/15/21 16:02 Vomiting Physical Exam Vitals: Vital Signs Temp Pulse Resp BP Pulse Ox 08/15/21 18:00 83 16 125/78 97 08/15/21 16:00 81 18 130/79 96 08/15/21 14:17 98.2 F 83 16 188/98 93 L Intake and Output 08/15/21 08/15/21 08/15/21 06:59 14:59 22:59 Other: Weight 70.76 kg PHYSICAL EXAMINATION: Patient is lying in the bed comfortably, no acute distress, awake alert and oriented.. HEENT: Normocephalic. Neck is supple. Pupils reactive. Nostrils clear. Oral cavity is moist. Neck reveals no JVD, carotid bruits, or thyromegaly. CHEST EXAMINATION: Trachea is central. Symmetrical expansion. Lung hinds clear to auscultation and percussion. CARDIAC: Normal S1, S2 with no gallops. No murmurs ABDOMEN: Soft. Bowel sounds normal. No organomegaly. No abdominal bruits. Patient does have rt mild flank tenderness. Extremities: reveal no edema. No clubbing or cyanosis Neurologically awake, alert, oriented x3 with well-coordinated movements. No focal deficits noted Skin: No rash or skin lesions. Psychiatric: Cooperative. Nonsuicidal Musculoskeletal: No joint swelling or deformity. Normal range of motion. Results CBC & Chem 7: 08/15/21 14:33 08/15/21 14:33 Labs: Abnormal Lab Results - Last 24 Hours (Table) 08/15/21 08/15/21 Range/Units 14:33 14:42 Sodium 136 L (137-145) mmol/L Carbon Dioxide 21 L (22-30) mmol/L Glucose 110 H (74-99) mg/dL Urine Protein Trace H (Negative) Urine Ketones 1+ H (Negative) Ur Leukocyte Esterase Moderate H (Negative) Urine WBC 12 H (0-5) /hpf Hyaline Casts 11 H (0-2) /lpf Urine Mucus Rare H (None) /hpf Thrombosis Risk Factor Assmnt - DVT/VTE Prophylaxis DVT/VTE Prophylaxis: Pharmacologic Prophylaxis ordered Assessment and Plan Assessment: Right flank pain due to acute pyelonephritis Recurrent urinary tract infection with prior history of ESBL E. coli. Recent E. coli infection pansensitive. Diabetes type 2 on insulin pump Hypertension Hyperlipidemia Osteoarthritis History of DVT Chronic migraine headaches Diabetic peripheral neuropathy Obstructive sleep apnea on CPAP at home History of nephrolithiasis Adrenal insufficiency on hydrocortisone 3 times daily. 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 History of MRSA infection of the right toe. DVT prophylaxis with heparin subcu Plan: Patient will be continued on gentle IV hydration and antibiotics in the form of ertapenem. Patient was given a dose of ertapenem x1 in the ER. Patient is allergic to ceftriaxone, clindamycin and other antibiotics. Urine culture will be sent and ID was consulted due to multiple antibiotic allergies and antibiotic recommendations. Continue with insulin sliding scale and continue with home medications and follow closely. Discussed with the patient and her at bedside in detail. Time with Patient: Greater than 30
[2021-08-15] MEDS ORDERED: HYDROCORTISONE 10 MG TAB PO SCH (21:15)
[2021-08-15] MEDS: HYDROcodone/APAP 10-325MG 1 EACH TAB PO PRN (22:04)
[2021-08-15] MEDS: busPIRone HCl 5 MG TAB PO SCH (22:07)
[2021-08-15] MEDS: MELATONIN 5 MG TABLET PO PRN (22:07)
[2021-08-15] MEDS: GABAPENTIN 100 MG CAP PO SCH (22:07)
[2021-08-15] MEDS: HEPARIN SODIUM,PORCINE/PF 5,000 UNIT/0.5 ML SYRINGE SQ SCH (22:08)
[2021-08-15] MEDS: METOPROLOL SUCCINATE (ER) 50 MG TAB.ER.24H PO SCH (22:08)
[2021-08-15] MEDS: BRIMONIDINE TARTRATE 0.2% DROPS 5 ML BTL RIGHT EYE SCH (23:07)
[2021-08-15] MEDS: ESCITALOPRAM 10 MG TAB PO SCH (23:08)
[2021-08-15] MEDS: HYDROmorphone 1 MG/ML 1 ML SYRINGE IVP PRN (23:08)
[2021-08-16] MEDS: HYDROmorphone 1 MG/ML 1 ML SYRINGE IVP PRN ×8 (02:07→23:56)
[2021-08-16] MEDS: ONDANSETRON 4 MG/2 ML VIAL IVP PRN ×3 (02:07→23:56)
[2021-08-16] MEDS: HEPARIN SODIUM,PORCINE/PF 5,000 UNIT/0.5 ML SYRINGE SQ SCH ×3 (08:20→23:20)
[2021-08-16] MEDS: ASPIRIN 81 MG PO SCH (08:21)
[2021-08-16] MEDS: BRIMONIDINE TARTRATE 0.2% DROPS 5 ML BTL RIGHT EYE SCH ×2 (08:21→20:45)
[2021-08-16] MEDS: FOLIC ACID 1 MG TAB PO SCH (08:21)
[2021-08-16] MEDS: PANTOPRAZOLE 40 MG TABLET PO SCH (08:21)
[2021-08-16] MEDS: busPIRone HCl 5 MG TAB PO SCH ×2 (08:21→20:42)
[2021-08-16] MEDS: GABAPENTIN 100 MG CAP PO SCH ×3 (08:21→20:43)
[2021-08-16] MEDS ORDERED: HYDROCORTISONE 10 MG TAB PO SCH ×2 (09:00→12:00)
[2021-08-16 09:50] LABS: Basophils # (A) 0.03 X 10*3/uL (0.00-0.10); Basophils % (A) 0.3 %; Eosinophils % (A) 3.1 %; HGB 12.4 g/dL (12.0-15.0); Immature Grans, Automated 0.6 %; Lymphocytes # (A) 1.78 X 10*3/uL (0.90-5.00); Lymphocytes % (A) 18.7 %; MCH 29.6 pg (27.0-32.0); MCV 95.5 fL (80.0-97.0); Mean Platelet Volume 10.6 fL (9.5-12.2); Monocytes # (A) 1.07 X 10*3/uL (0.20-1.00); Monocytes % (A) 11.2 %; NRBC Per 100 WBC 0 /100 WBCS (0.0-0.0); Neutrophils # (A) 6.29 X 10*3/uL (1.80-7.70); Neutrophils % (A) 66.1 %; Platelet Count 241 X 10*3/uL (140-440); RBC 4.19 X 10*6/uL (4.10-5.20); RDW 15.9 % (11.5-14.5); WBC 9.53 X 10*3/uL (4.50-10.00)
[2021-08-16 10:30] LABS: African American GFR (CKD) 69.8 (60.0-200.0); Anion Gap 14.9 mmol/L (10.00-18.00); BUN/Creat Ratio 19.05 Ratio (12.00-20.00); Blood Urea Nitrogen 18.1 mg/dL (9.0-27.0); Calcium 10.4 mg/dL (8.7-10.3); Carbon Dioxide 23.4 mmol/L (20.0-27.5); Non-African American GFR(CKD) 60.3 (60.0-200.0); Potassium 4.5 mmol/L (3.5-5.5)
[2021-08-16 14:17] LABS: Glucose,Whole Blood 211 mg/dL (75-99)
[2021-08-16] MEDS ORDERED: HYDROCORTISONE 10 MG TAB PO ONE ×2 (14:30→14:45)
--- NOTE | 2021-08-16 15:57 | P.PN ---
Subjective Progress Note Date: 08/16/21 This is a 70-year-old female admitted with constant right-sided flank pain, UA with moderate leukocytes, culture pending, in a patient with history of ESBL UTI, multiple antibiotic ALLERGIES. Ertapenem initiated. Patient also has PMH of adrenal insufficiency, hydrocortisone will be adjusted for stress dosing. T- max 99.3, normal WBC. Renal function stable. Denies chest pain, palpitations or shortness of breath. Maintaining O2 sats in the 90s on room air. Right flank/groin pain improving on current pain management. Objective - Vital Signs Vital signs: Vital Signs Temp 99.1 F 08/16/21 14:58 Pulse 80 08/16/21 14:58 Resp 18 08/16/21 14:58 BP 134/70 08/16/21 14:58 Pulse Ox 92 L 08/16/21 14:58 Intake & Output 08/15/21 08/16/21 08/16/21 18:59 06:59 18:59 Weight 70.76 kg Other: Voiding Method Bedside Commode Bedside Commode # Voids 1 2 - Exam PHYSICAL EXAMINATION: General: Alert and oriented 3,lying in the bed comfortably,NAD. HEENT: Normocephalic. Neck is supple. Pupils reactive. Oral mucosa moist NECK: Supple, no JVD, CHEST EXAMINATION: Symmetrical expansion. Lung hinds clear to auscultation, bilateral bases diminished CARDIAC: Normal S1, S2 with no gallops. No murmurs ABDOMEN: Soft. Bowel sounds normal. No organomegaly. No guarding, no rigidity, rt mild flank tenderness. Extremities: no edema. No clubbing or cyanosis Neurologic: Cranial nerves II through XII grossly intact, No focal deficits noted Skin: No rash, warm and dry. Microbiology 08/15/21 14:42 Urine,Voided Urine Culture - Preliminary - Labs CBC & Chem 7: 08/16/21 06:49 08/16/21 06:49 Labs: Abnormal Lab Results - Last 24 Hours (Table) 08/16/21 08/16/21 08/16/21 Range/Units 06:49 06:49 13:57 MCHC 31.0 L (32.0-37.0) g/dL RDW 15.9 H (11.5-14.5) % Immature Gran # 0.06 H (0.00-0.04) X 10*3/uL Monocytes # 1.07 H (0.20-1.00) X 10*3/uL Glucose 160 H (70-110) mg/dL POC Glucose (mg/dL) 211 H (75-99) mg/dL Calcium 10.4 H (8.7-10.3) mg/dL Microbiology - Last 24 Hours (Table) 08/15/21 14:42 Urine Culture - Preliminary Urine,Voided Assessment and Plan Assessment: Right flank pain due to acute pyelonephritis Recurrent urinary tract infection with prior history of ESBL E. coli. Recent E. coli infection pansensitive. Recent covid, June 2021 Diabetes type 2 on insulin pump Hypertension Hyperlipidemia Osteoarthritis History of DVT Chronic migraine headaches Diabetic peripheral neuropathy Obstructive sleep apnea on CPAP at home History of nephrolithiasis Adrenal insufficiency on hydrocortisone 3 times daily. 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 Plan: Continue on current medication regime ,monitoring and symptomatic treatment. Gently IV fluid hydration.Pain management. Currently on ertapenem. Urine culture pending. Infectious consult in place, recommendations pending. The impression and plan of care has been dictated as directed. : I performed a history and examination of this patient, discussed the same with the dictator. I agree with the dictator's note ,documented as a scribe. Any additional findings or plans will be noted.
[2021-08-16] MEDS: INSULIN ASPART (NovoLOG) 100 UNIT/ML VIAL SQ SCH ×2 (17:33→20:46)
[2021-08-16 17:34] LABS: Glucose,Whole Blood 196 mg/dL (75-99)
[2021-08-16] MEDS: SODIUM CHLORIDE 0.9% 1,000 ML IV SCH ×2 (18:17→23:12)
[2021-08-16 20:14] LABS: Glucose,Whole Blood 146 mg/dL (75-99)
[2021-08-16] MEDS: HYDROCORTISONE 10 MG TAB PO SCH (20:42)
[2021-08-16] MEDS: ATORVASTATIN 10 MG TAB PO SCH (20:42)
[2021-08-16] MEDS: MELATONIN 5 MG TABLET PO PRN (20:43)
[2021-08-16] MEDS: METOPROLOL SUCCINATE (ER) 50 MG TAB.ER.24H PO SCH (20:45)
[2021-08-16] MEDS ORDERED: VANCOMYCIN IV PER PHARMACY 1 EACH MISC MISCELLANE PRN (21:15)
[2021-08-16] MEDS: ESCITALOPRAM 10 MG TAB PO SCH (21:34)
[2021-08-16] MEDS ORDERED: VANCOMYCIN 1,250 MG in SODIUM CHLORIDE 0.9% 250 ML IVPB ONE (22:00)
--- NOTE | 2021-08-16 22:33 | P.CONS ---
History of Present Illness - Reason for Consult Consult date: 08/16/21 Urinary tract infection Requesting physician: Sonia Swanson - Chief Complaint Right-sided flank pain urine burning x few days - History of Present Illness Patient is a 70-year female with a past medical history significant for recurrent urinary tract infection patient presented to hospital yesterday afternoon for evaluation of right-sided flank pain and headache patient also complaining of feeling nauseated but no vomiting patient describing the pain to be more of a sharp in nature 6-7 out of 10 no radiation patient also complaining of burning of urine and frequency and also having some diarrhea with the symptoms the patient has been evaluated by the ER physician on arrival to the ER patient did have a fever of 99.3 F patient did have a normal white count kidney function has been normal urine was positive with moderate leukocyte esterase 12 WBC patient did have a ultrasound of the abdominal, no evidence of hydronephrosis or solid renal mass patient was given a dose of Invanz has been admitted to the hospital infectious disease was consulted for further management of antibiotic therapy Review of Systems Positive point has been mentioned in the HPI rest of the systems are negative Past Medical History Past Medical History: Diabetes Mellitus, Deep Vein Thrombosis (DVT), F ibromyalgia, Hyperlipidemia, Hypertension, Osteoarthritis (OA), Pneumonia, Renal Disease, Sleep Apnea/CPAP/BIPAP, Vascular Disorder Additional Past Medical History / Comment(s): 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, DVT R calf in 1976, cardiac murmur, occipital neuraligia, balance issues-has narrowing of vessels "in the back of my head", vertigo, varicosities, states rt shoulder torn rotator cuff History of Any Multi-Drug Resistant Organisms: ESBL, MRSA, VRE Year Discovered:: 11/25/20 ESBL;12/06/19 VRE; 03/10/11 MRSA MDRO Source:: Urine ESBL; Urine-VRE: MRSA 4th Right TOE Past Surgical History: Appendectomy, Back Surgery, Bladder Surgery, Breast Surgery, Cholecystectomy, Heart Catheterization, Hysterectomy, Orthopedic Surgery, Tonsillectomy Additional Past Surgical History / Comment(s): Lumbar fusions, bladder arteaga spension, occipital nerve blocks, 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, R wrist/elbow nerve repair, bone removed R shoulder, 4th toe R foot partial amputation, bilateral feet/bunionectomies, R knee arthroscopies, R orbit decompression with ethmoidectomy and eyelid lift, EGD, colonoscopies, cystocop ies, lithotripsy/stents, bilateral breast reduction, bilateral cataract removals, parathyroid surgery - April 2019, pain clinic procedures Past Anesthesia/Blood Transfusion Reactions: No Reported Reaction Additional Past Anesthesia/Blood Transfusion Reaction / Comm: never recieved blood Past Psychological History: Depression Smoking Status: Never smoker Past Alcohol Use History: Rare Past Drug Use History: None Reported - Past Family History Father Family Medical History: Coronary Artery Disease (CAD), CVA/TIA, Diabetes Mellitus, Myocardial Infarction (DC), Pneumonia Additional Family Medical History / Comment(s): Father at the age of 78yrs from DC and pneumonia. Mother Family Medical History: Cancer, Congestive Heart Failure (CHF) Additional Family Medical History / Comment(s): Mother had uterine cancer. She recently at the age of 96yrs old from shingles. Medications and Allergies Home Medications Medication Instructions Recorded Confirmed Type Cholecalciferol [Vitamin D3 (25 25 mcg PO DAILY 12/01/14 08/15/21 History Mcg = 1000 Iu)] Metoprolol Succinate (ER) [Toprol 100 mg PO HS 07/06/17 08/15/21 History XL] Meclizine [Antivert] 25 mg PO QID PRN 11/26/17 08/15/21 History Aspirin 81 mg PO DAILY #0 07/02/18 08/15/21 Rx Ferrous Sulfate [Iron (65 MG 325 mg PO DAILY 10/08/18 08/15/21 History Elemental)] Folic Acid 0.4 mg PO DAILY 10/08/18 08/15/21 History L.acidoph,Paracasei, B.lactis 2 cap PO BID 10/08/18 08/15/21 History [Probiotic] Melatonin 5 mg PO HS PRN 10/08/18 08/15/21 History Potassium 99 mg PO DAILY 10/08/18 08/15/21 History Thiamine [Vitamin B-1] 100 mg PO DAILY 10/08/18 08/15/21 History Vitamin B-Complex Drops 1 ml PO BID 10/08/18 08/15/21 History Magnesium Oxide [Mag-Ox] 400 mg PO DAILY 12/06/19 08/15/21 History Gabapentin [Neurontin] 100 mg PO TID #9 cap 03/24/20 08/15/21 Rx HYDROcodone/APAP 10-325MG [Exchange 1 tab PO QID PRN 04/16/20 08/15/21 History 10-325] C,E,Zinc,Copper 11/Bvzst2w/Lut 1 cap PO DAILY 06/25/20 08/15/21 History [Ocuvite Adult 50 Plus Softgel] Cyanocobalamin (Vitamin B-12) 1,000 mcg PO DAILY 06/25/20 08/15/21 History [Vitamin B-12] Spironolactone 50 mg PO DAILY 06/25/20 08/15/21 History Vitamin E 400 unit PO DAILY 06/25/20 08/15/21 History Brimonidine Tartrate [Alphagan P 1 drop RIGHT EYE BID 11/26/20 08/15/21 History 0.2% Ophth Soln] Butalb/APAP/Caff 50-325-40Mg 1 tab PO TID PRN 11/26/20 08/15/21 History [Fioricet 50-325-40] Glucagon [Gvoke Pfs 1-Pack Syringe] 1 mg SQ ONCE PRN 11/26/20 08/15/21 History Pantoprazole Sodium [Protonix] 40 mg PO DAILY 11/26/20 08/15/21 History Cephalexin [Keflex] 250 mg PO HS 12/11/20 08/15/21 History Hydrocortisone [Cortef] 5 mg PO HS #0 12/16/20 08/15/21 Rx Hydrocortisone [Cortef] 10 mg PO DAILY@1200 #0 12/16/20 08/15/21 Rx Hydrocortisone [Cortef] 15 mg PO DAILY #0 12/16/20 08/15/21 Rx busPIRone HCl [Buspar] 5 mg PO BID 02/04/21 08/15/21 History Nystatin 1 applic TOPICAL BID PRN 02/17/21 08/15/21 History Insulin Aspart (For Pump) [NovoLOG 0.01 unit SQ-PUMP CONTINUOUS 03/03/21 08/15/21 History (For Pump)] Cranberry Fruit Extract [Cranberry] 1,500 mg PO BID 08/15/21 08/15/21 History Escitalopram [Lexapro] 10 mg PO HS 08/15/21 08/15/21 History Liquid Multi Vitamin 1 oz PO DAILY 08/15/21 08/15/21 History Ondansetron [Zofran] 4 mg PO Q6H PRN 08/15/21 08/15/21 History Promethazine HCl [Phenergan Syrup] 6.25 mg PO Q6H PRN 08/15/21 08/15/21 History Rosuvastatin Calcium [Crestor] 5 mg PO HS 08/15/21 08/15/21 History lisinopriL 40 mg PO DAILY 08/15/21 08/15/21 History Allergies Allergy/AdvReac Type Severity Reaction Status Date / Time butorphanol tartrate Allergy BLISTERS Verified 08/15/21 16:02 [From Stadol] IN MOUTH ceftriaxone [From Rocephin] Allergy Unknown Verified 08/15/21 16:02 clarithromycin [From Biaxin] Allergy Rash/Hives Verified 08/15/21 16:02 clindamycin Allergy Unknown Verified 08/15/21 16:02 codeine Allergy Rash/Hives Verified 08/15/21 16:02 ergotamine tartrate Allergy Unknown Verified 08/15/21 16:02 [From Cafergot] erythromycin base Allergy RASH, GI Verified 08/15/21 16:02 [From E-Mycin] SYMPTOMS ketorolac tromethamine Allergy Rash/Hives Verified 08/15/21 16:02 [From Toradol] liraglutide [From Victoza] Allergy Rash/Hives Verified 08/15/21 16:02 morphine Allergy Rash/Hives Verified 08/15/21 16:02 Penicillins Allergy Rash/Hives Verified 08/15/21 16:02 pentazocine lactate Allergy SEVERE Verified 08/15/21 16:02 [From Talwin] BLISTERS IN MOUTH pregabalin [From Lyrica] Allergy Rash/Hives Verified 08/15/21 16:02 propoxyphene HCl Allergy Rash/Hives Verified 08/15/21 16:02 [From Darvon] Sulfa (Sulfonamide Allergy Rash/Hives Verified 08/15/21 16:02 Antibiotics) tramadol Allergy Unknown Verified 08/15/21 16:02 monosodium glutamate [MSG] AdvReac Nausea & Verified 08/15/21 16:02 Vomiting nalbuphine HCl [From Nubain] AdvReac Nausea & Verified 08/15/21 16:02 Vomiting Physical Exam Vitals: Vital Signs Temp Pulse Pulse Resp BP BP Pulse Ox 08/16/21 08:00 18 08/16/21 07:00 98.4 F 75 18 115/63 95 08/16/21 01:41 99.3 F 79 20 117/62 96 08/15/21 21:49 98.8 F 100 20 107/70 93 L 08/15/21 20:00 93 16 155/91 96 08/15/21 18:00 83 16 125/78 97 08/15/21 16:00 81 18 130/79 96 08/15/21 14:17 98.2 F 83 16 188/98 93 L Intake and Output 08/15/21 08/16/21 08/16/21 22:59 06:59 14:59 Other: Voiding Method Toilet Bedside Commode Bedside Commode # Voids 1 1 Weight 70.76 kg GENERAL DESCRIPTION: An elderly female lying in bed, no distress. No tachypnea or accessory muscle of respiration use. HEENT: Shows Pallor , no scleral icterus. Oral mucous membrane is dry. No p haryngeal erythema or thrush NECK: Trachea central, no thyromegaly. LUNGS: Unlabored breathing. Clear to auscultation anteriorly. No wheeze or crackle. HEART: S1, S2, regular rate and rhythm. No loud murmur ABDOMEN: Soft, mild right flank tenderness , no guarding or rigidity, no organomegaly EXTREMITIES: No edema of feet. SKIN: No rash, no masses palpable. NEUROLOGICAL: The patient is awake, alert, oriented x3, mood and affect normal. Results CBC & Chem 7: 08/16/21 06:49 08/16/21 06:49 Labs: Abnormal Lab Results - Last 24 Hours (Table) 08/15/21 08/15/21 08/16/21 Range/Units 14:33 14:42 06:49 MCHC 31.0 L (32.0-37.0) g/dL RDW 15.9 H (11.5-14.5) % Immature Gran # 0.06 H (0.00-0.04) X 10*3/uL Monocytes # 1.07 H (0.20-1.00) X 10*3/uL Sodium 136 L (137-145) mmol/L Carbon Dioxide 21 L (22-30) mmol/L Glucose 110 H (74-99) mg/dL Calcium (8.7-10.3) mg/dL Urine Protein Trace H (Negative) Urine Ketones 1+ H (Negative) Ur Leukocyte Esterase Moderate H (Negative) Urine WBC 12 H (0-5) /hpf Hyaline Casts 11 H (0-2) /lpf Urine Mucus Rare H (None) /hpf 08/16/21 Range/Units 06:49 MCHC (32.0-37.0) g/dL RDW (11.5-14.5) % Immature Gran # (0.00-0.04) X 10*3/uL Monocytes # (0.20-1.00) X 10*3/uL Sodium (137-145) mmol/L Carbon Dioxide (22-30) mmol/L Glucose 160 H (74-99) mg/dL Calcium 10.4 H (8.7-10.3) mg/dL Urine Protein (Negative) Urine Ketones (Negative) Ur Leukocyte Esterase (Negative) Urine WBC (0-5) /hpf Hyaline Casts (0-2) /lpf Urine Mucus (None) /hpf Microbiology - Last 24 Hours (Table) 08/15/21 14:42 Urine Culture - Preliminary Urine,Voided Assessment and Plan (1) UTI (urinary tract infection) Current Visit: Yes Status: Acute Code(s): N39.0 - URINARY TRACT INFECTION, SITE NOT SPECIFIED SNOMED Code(s): 77235768 Plan: 1patient presented to hospital with right flank pain did have history of some urinary frequency burning and also with some nausea did have a positive UA concerning for symptomatic urinary tract infection. 2patient with multiple antibiotic allergies that would limit the number of antibiotics safe to use 3vancomycin pharmacy to dose target trough of 15 while watching kidney function and vancomycin trough closely as the urine is showing Enterococcus We will follow on clinical condition and cultures to further adjust medication if needed Thank you for this consultation will follow this patient along with you Time with Patient: Greater than 30
[2021-08-17] MEDS: HYDROmorphone 1 MG/ML 1 ML SYRINGE IVP PRN ×6 (03:40→21:13)
[2021-08-17 07:21] LABS: Glucose,Whole Blood 160 mg/dL (75-99)
[2021-08-17] MEDS: busPIRone HCl 5 MG TAB PO SCH ×2 (08:31→20:32)
[2021-08-17] MEDS: GABAPENTIN 100 MG CAP PO SCH ×3 (08:31→20:32)
[2021-08-17] MEDS: HYDROCORTISONE 10 MG TAB PO SCH ×3 (08:31→20:31)
[2021-08-17] MEDS: ASPIRIN 81 MG PO SCH (08:31)
[2021-08-17] MEDS: ONDANSETRON 4 MG/2 ML VIAL IVP PRN (08:31)
[2021-08-17] MEDS: BRIMONIDINE TARTRATE 0.2% DROPS 5 ML BTL RIGHT EYE SCH ×2 (08:31→20:32)
[2021-08-17] MEDS: FOLIC ACID 1 MG TAB PO SCH (08:31)
[2021-08-17] MEDS: PANTOPRAZOLE 40 MG TABLET PO SCH (08:31)
[2021-08-17] MEDS ORDERED: ACETAMINOPHEN IV (For NPO) 1,000 MG in EMPTY BAG 1 BAG IVPB STA (09:22)
[2021-08-17] MEDS ORDERED: MAGNESIUM SULFATE-D5W PMX 1 GM in DEXTROSE/WATER 1 100ML.BAG IVPB ONE (09:22)
[2021-08-17] MEDS ORDERED: HYDROmorphone 1 MG/ML 1 ML SYRINGE IVP PRN (09:24)
[2021-08-17] MEDS: INSULIN ASPART (NovoLOG) 100 UNIT/ML VIAL SQ SCH ×4 (09:50→21:13)
[2021-08-17] MEDS: HEPARIN SODIUM,PORCINE/PF 5,000 UNIT/0.5 ML SYRINGE SQ SCH ×2 (09:56→17:20)
[2021-08-17 12:02] LABS: Glucose,Whole Blood 206 mg/dL (75-99)
[2021-08-17 12:10] LABS: Basophils # (A) 0.03 X 10*3/uL (0.00-0.10); Basophils % (A) 0.4 %; Eosinophils # (A) 0.25 X 10*3/uL (0.04-0.35); Eosinophils % (A) 3.4 %; HCT 37.4 % (37.2-46.3); HGB 11.6 g/dL (12.0-15.0); Immature Grans, Automated 0.3 %; Lymphocytes # (A) 1.47 X 10*3/uL (0.90-5.00); MCH 29.6 pg (27.0-32.0); MCV 95.4 fL (80.0-97.0); Mean Platelet Volume 11.1 fL (9.5-12.2); Monocytes % (A) 12.3 %; NRBC Per 100 WBC 0 /100 WBCS (0.0-0.0); Neutrophils # (A) 4.67 X 10*3/uL (1.80-7.70); Neutrophils % (A) 63.6 %; Platelet Count 207 X 10*3/uL (140-440); RBC 3.92 X 10*6/uL (4.10-5.20); RDW 15.8 % (11.5-14.5); WBC 7.34 X 10*3/uL (4.50-10.00)
[2021-08-17 12:32] LABS: African American GFR (CKD) 84.9 (60.0-200.0); Anion Gap 11.2 mmol/L (10.00-18.00); BUN/Creat Ratio 26.24 Ratio (12.00-20.00); Blood Urea Nitrogen 21.2 mg/dL (9.0-27.0); Calcium 9.1 mg/dL (8.7-10.3); Carbon Dioxide 23.7 mmol/L (20.0-27.5); Non-African American GFR(CKD) 73.3 (60.0-200.0); Potassium 3.9 mmol/L (3.5-5.5)
--- NOTE | 2021-08-17 13:28 | P.PN ---
Subjective Progress Note Date: 08/17/21 This is a 70-year-old female admitted with constant right-sided flank pain, UA with moderate leukocytes, culture pending, in a patient with history of ESBL UTI, multiple antibiotic ALLERGIES. Ertapenem initiated. Patient also has PMH of adrenal insufficiency, hydrocortisone will be adjusted for stress dosing. T- max 99.3, normal WBC. Renal function stable. Denies chest pain, palpitations or shortness of breath. Maintaining O2 sats in the 90s on room air. Right flank/groin pain improving on current pain management. 08/17/2021 complaints of headache and increased right flank pain. Urine culture reported group D enterococcus. Antibiotics adjusted per infectious disease, currently on vancomycin. Renal function stable. T-max 99.8, WBC within normal limits. Stress dose of steroids, blood sugars controlled. Objective - Vital Signs Vital signs: Vital Signs Temp 99.3 F 08/17/21 07:00 Pulse 64 08/17/21 07:00 Resp 18 08/17/21 07:00 BP 150/73 08/17/21 07:00 Pulse Ox 95 08/17/21 07:00 Intake & Output 08/16/21 08/17/21 08/17/21 18:59 06:59 18:59 Intake Total 120 Balance 120 Intake: Oral 120 Other: Voiding Method Bedside Commode Bedside Commode Bedside Commode # Voids 2 1 - Exam PHYSICAL EXAMINATION: General: Alert and oriented 3, lying in bed, NAD. HEENT: Normocephalic. Neck is supple. Pupils reactive. Oral mucosa moist NECK: Supple, no JVD, CHEST EXAMINATION: Symmetrical expansion. Lung hinds clear to auscultation, bilateral bases diminished CARDIAC: Normal S1, S2 with no gallops. No murmurs ABDOMEN: Soft. Bowel sounds normal. No organomegaly. No guarding, no rigidity, rt mild flank tenderness. Extremities: no edema. No clubbing or cyanosis Neurologic: Cranial nerves II through XII grossly intact, No focal deficits noted Skin: No rash, warm and dry. Microbiology 08/15/21 14:42 Urine,Voided Urine Culture - Preliminary Group D Enterococcus - Labs CBC & Chem 7: 08/17/21 07:25 08/17/21 07:25 Labs: Abnormal Lab Results - Last 24 Hours (Table) 08/16/21 08/16/21 08/16/21 Range/Units 13:57 17:26 20:12 RBC (4.10-5.20) X 10*6/uL Hgb (12.0-15.0) g/dL MCHC (32.0-37.0) g/dL RDW (11.5-14.5) % BUN/Creatinine Ratio (12.00-20.00) Ratio Glucose (70-110) mg/dL POC Glucose (mg/dL) 211 H 196 H 146 H (75-99) mg/dL 08/17/21 08/17/21 08/17/21 Range/Units 07:00 07:25 07:25 RBC 3.92 L (4.10-5.20) X 10*6/uL Hgb 11.6 L (12.0-15.0) g/dL MCHC 31.0 L (32.0-37.0) g/dL RDW 15.8 H (11.5-14.5) % BUN/Creatinine Ratio 26.24 H (12.00-20.00) Ratio Glucose 169 H (70-110) mg/dL POC Glucose (mg/dL) 160 H (75-99) mg/dL 08/17/21 Range/Units 11:59 RBC (4.10-5.20) X 10*6/uL Hgb (12.0-15.0) g/dL MCHC (32.0-37.0) g/dL RDW (11.5-14.5) % BUN/Creatinine Ratio (12.00-20.00) Ratio Glucose (70-110) mg/dL POC Glucose (mg/dL) 206 H (75-99) mg/dL Microbiology - Last 24 Hours (Table) 08/15/21 14:42 Urine Culture - Preliminary Urine,Voided Group D Enterococcus Assessment and Plan Assessment: Right flank pain due to acute pyelonephritis Recurrent urinary tract infection with Group D Enteroccoccus,prior history of ESBL E. coli. Recent E. coli infection pansensitive. Cephalgia in a patient with history of migraines Recent covid, June 2021 Diabetes type 2 on insulin pump Hypertension Hyperlipidemia Osteoarthritis History of DVT Chronic migraine headaches Diabetic peripheral neuropathy Obstructive sleep apnea on CPAP at home History of nephrolithiasis Adrenal insufficiency on hydrocortisone 3 times daily. 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 Plan: Continue on current medication regime ,monitoring and symptomatic treatment. Gently IV fluid hydration.Mirgrane cocktail with Magnesium.Pain management- increase Dilaudid to 1 mg every 3 hours prn 3 doses and then resume previous Dilaudid order. Antibiotics as per ID. Close monitoring of renal function with repeat labs ordered for a.m. The impression and plan of care has been dictated as directed. : I performed a history and examination of this patient, discussed the same with the dictator. I agree with the dictator's note ,documented as a scribe. Any additional findings or plans will be noted.
[2021-08-17 18:05] LABS: Glucose,Whole Blood 310 mg/dL (75-99)
[2021-08-17] MEDS ORDERED: VANCOMYCIN 1,250 MG in SODIUM CHLORIDE 0.9% 250 ML IVPB SCH (20:00)
[2021-08-17] MEDS: ATORVASTATIN 10 MG TAB PO SCH (20:32)
[2021-08-17] MEDS: METOPROLOL SUCCINATE (ER) 50 MG TAB.ER.24H PO SCH (20:32)
[2021-08-17] MEDS: MELATONIN 5 MG TABLET PO PRN (20:32)
[2021-08-17] MEDS: SODIUM CHLORIDE 0.9% 1,000 ML IV SCH (20:34)
[2021-08-17] MEDS: ESCITALOPRAM 10 MG TAB PO SCH (20:39)
[2021-08-17 21:07] LABS: Glucose,Whole Blood 317 mg/dL (75-99)
--- NOTE | 2021-08-17 23:37 | P.PN ---
Subjective Progress Note Date: 08/17/21 Principal diagnosis: Urinary tract infection Patient is a 70-year-old female with past medical history significant for recurrent urinary tract infection presenting to the hospital with right flank pain nausea and burning of urine did have a positive UA concerning for a symptomatic urinary tract infection. On today's evaluation that is 07/08/2021, the patient denies having any fever or chills she should complain of pain in the right flank area some nausea but no vomiting denies having any diarrhea no chest pain shortness of breath or cough Objective - Vital Signs Vital signs: Vital Signs Temp 99.3 F 08/17/21 07:00 Pulse 64 08/17/21 07:00 Resp 18 08/17/21 07:00 BP 150/73 08/17/21 07:00 Pulse Ox 95 08/17/21 07:00 Intake & Output 08/16/21 08/17/21 08/17/21 18:59 06:59 18:59 Intake Total 120 Balance 120 Intake: Oral 120 Other: Voiding Method Bedside Commode Bedside Commode Bedside Commode # Voids 2 1 - Exam GENERAL DESCRIPTION: An elderly female lying in bed in no distress RESPIRATORY SYSTEM: Unlabored breathing , decreased breath sounds at bases HEART: S1 S2 regular rate and rhythm , ABDOMEN: Soft , no tenderness EXTREMITIES: No edema feet - Labs CBC & Chem 7: 08/17/21 07:25 08/17/21 07:25 Labs: Abnormal Lab Results - Last 24 Hours (Table) 08/16/21 08/16/21 08/16/21 Range/Units 13:57 17:26 20:12 POC Glucose (mg/dL) 211 H 196 H 146 H (75-99) mg/dL 08/17/21 Range/Units 07:00 POC Glucose (mg/dL) 160 H (75-99) mg/dL Microbiology - Last 24 Hours (Table) 08/15/21 14:42 Urine Culture - Preliminary Urine,Voided Group D Enterococcus Assessment and Plan (1) UTI (urinary tract infection) Current Visit: Yes Status: Acute Code(s): N39.0 - URINARY TRACT INFECTION, SITE NOT SPECIFIED SNOMED Code(s): 44115032 Plan: 1patient presented to hospital with right flank pain did have history of some urinary frequency burning and also with some nausea did have a positive UA concerning for symptomatic urinary tract infection. 2patient with multiple antibiotic allergies that would limit the number of antibiotics safe to use 3vancomycin pharmacy to dose target trough of 15 while watching kidney function and vancomycin trough closely as the urine is showing Enterococcus, while waiting for sensitivity to finalize Time with Patient: Less than 30
[2021-08-18] MEDS: HYDROmorphone 1 MG/ML 1 ML SYRINGE IVP PRN ×7 (00:21→21:21)
[2021-08-18] MEDS: HEPARIN SODIUM,PORCINE/PF 5,000 UNIT/0.5 ML SYRINGE SQ SCH ×4 (00:22→23:45)
[2021-08-18] MEDS: ONDANSETRON 4 MG/2 ML VIAL IVP PRN (03:22)
[2021-08-18 07:15] LABS: African American GFR (CKD) >90 (>60 ml/min/1.73 sqM); Anion Gap 4 mmol/L; Blood Urea Nitrogen 23 mg/dL (7-17); Calcium 8.3 mg/dL (8.4-10.2); Carbon Dioxide 25 mmol/L (22-30); Chloride 106 mmol/L (98-107); Glucose 186 mg/dL (74-99); Non-African American GFR(CKD) 81 (>60 ml/min/1.73 sqM); Sodium 135 mmol/L (137-145)
[2021-08-18 07:19] LABS: Glucose,Whole Blood 186 mg/dL (75-99)
[2021-08-18 07:21] LABS: Potassium 4.1 mmol/L (3.5-5.1)
[2021-08-18] MEDS: PANTOPRAZOLE 40 MG TABLET PO SCH (08:44)
[2021-08-18] MEDS: BRIMONIDINE TARTRATE 0.2% DROPS 5 ML BTL RIGHT EYE SCH ×2 (08:44→20:12)
[2021-08-18] MEDS: HYDROCORTISONE 10 MG TAB PO SCH ×3 (08:44→20:12)
[2021-08-18] MEDS: HYDROcodone/APAP 10-325MG 1 EACH TAB PO PRN ×2 (08:44→20:13)
[2021-08-18] MEDS: FOLIC ACID 1 MG TAB PO SCH (08:45)
[2021-08-18] MEDS: ASPIRIN 81 MG PO SCH (08:45)
[2021-08-18] MEDS: busPIRone HCl 5 MG TAB PO SCH ×2 (08:45→20:12)
[2021-08-18] MEDS: GABAPENTIN 100 MG CAP PO SCH ×3 (08:45→21:21)
[2021-08-18] MEDS: INSULIN ASPART (NovoLOG) 100 UNIT/ML VIAL SQ SCH ×4 (08:45→21:20)
[2021-08-18 12:34] LABS: Glucose,Whole Blood 184 mg/dL (75-99)
[2021-08-18] MEDS ORDERED: LIDOCAINE 1% INJ 10MG/ML (20 ML MDV) ONE (13:36)
[2021-08-18] MEDS ORDERED: LIDOCAINE 1% INJ 10MG/ML (20 ML MDV) SQ ONE (14:02)
--- NOTE | 2021-08-18 15:19 | IR ---
EXAMINATION TYPE: IR cvc insert >=5 years DATE OF EXAM: 08/18/2021 COMPARISON: NONE CLINICAL HISTORY: Infection Needs long-term intravenous access for antibiotics. PROCEDURE: Hand hygiene obtained with soap and water and alcohol-based hand rub. After informed consent, the skin overlying the left brachial vein was localized with ultrasound and n oted to be compressible and patent. An ultrasound image was obtained and submitted on the patient's chart. The overlying skin was prepped and draped and Lidocaine was used for local anesthesia. A ski n kofi was made with a scalpel. Access was gained to the vein under ultrasound guidance with a 21 ga uge needle and a 0.018 inch wire was advanced. Access site was dilated with Peel-Away sheath and cat heter tailored to the appropriate length and advanced such that the distal tip is at the cavoatrial j unction. Spot image was obtained verifying placement. Catheter was fixed to the skin and a sterile dressing was placed following hemostasis. Catheter was aspirated and flushed with saline. Patient w as discharged in stable condition without complication. Maximal barrier technique is utilized. Ultra sound image is documented on the chart. Ultrasound used with sterile technique. Fluoro time and fluoroscopic images submitted to document procedure: 38 intraoperative C-arm images, 0.5 minutes fluoroscopy time IMPRESSION: STATUS POST ULTRASOUND AND FLUOROSCOPIC GUIDED PICC LINE PLACEMENT, READY FOR USE. THIS PROCEDURE WAS PERFORMED BY THE UNDERSIGNED.
[2021-08-18] MEDS: VANCOMYCIN 1,250 MG in SODIUM CHLORIDE 0.9% 250 ML IVPB SCH (15:49)
[2021-08-18] MEDS: SODIUM CHLORIDE 0.9% 1,000 ML IV SCH (15:55)
--- NOTE | 2021-08-18 16:15 | P.PN ---
Subjective Progress Note Date: 08/18/21 This is a 70-year-old female admitted with constant right-sided flank pain, UA with moderate leukocytes, culture pending, in a patient with history of ESBL UTI, multiple antibiotic ALLERGIES. Ertapenem initiated. Patient also has PMH of adrenal insufficiency, hydrocortisone will be adjusted for stress dosing. T- max 99.3, normal WBC. Renal function stable. Denies chest pain, palpitations or shortness of breath. Maintaining O2 sats in the 90s on room air. Right flank/groin pain improving on current pain management. 08/17/2021 complaints of headache and increased right flank pain. Urine culture reported group D enterococcus. Antibiotics adjusted per infectious disease, currently on vancomycin. Renal function stable. T-max 99.8, WBC within normal limits. Stress dose of steroids, blood sugars controlled. 08-18-21 didn't sleep well related to "IV machine beeping all night." Right flank pain unchanged. Maintained on IV antibiotics as per ID. Continues on IV fluid hydration. Headache resolved after migraine cocktail yesterday. Denies nausea, vomiting. Afebrile. Objective - Vital Signs Vital signs: Vital Signs Temp 98.7 F 08/18/21 15:00 Pulse 74 08/18/21 15:00 Resp 16 08/18/21 15:00 BP 157/72 08/18/21 15:00 Pulse Ox 97 08/18/21 15:00 Intake & Output 08/17/21 08/18/21 08/18/21 18:59 06:59 18:59 Intake Total 120 298 Balance 120 298 Intake: Oral 120 298 Other: Voiding Method Bedside Commode Bedside Commode # Voids 2 3 - Exam PHYSICAL EXAMINATION: General: Alert and oriented 3, lying in bed, NAD. HEENT: Normocephalic. Neck is supple. Pupils reactive. Oral mucosa moist NECK: Supple, no JVD, CHEST EXAMINATION: Symmetrical expansion. Lung hinds clear to auscultation, bilateral bases diminished CARDIAC: Normal S1, S2 with no gallops. No murmurs ABDOMEN: Soft. Bowel sounds normal. No guarding, no rigidity, rt mild flank tenderness. Extremities: no edema. No clubbing or cyanosis Neurologic: Cranial nerves II through XII grossly intact, No focal deficits noted Skin: No rash, warm and dry. Microbiology 08/15/21 14:42 Urine,Voided Urine Culture - Preliminary Group D Enterococcus - Labs CBC & Chem 7: 08/17/21 07:25 08/18/21 06:28 Labs: Abnormal Lab Results - Last 24 Hours (Table) 08/17/21 08/17/21 08/18/21 Range/Units 18:01 21:06 06:28 Sodium 135 L (137-145) mmol/L BUN 23 H (7-17) mg/dL Glucose 186 H (74-99) mg/dL POC Glucose (mg/dL) 310 H 317 H (75-99) mg/dL Calcium 8.3 L (8.4-10.2) mg/dL 08/18/21 08/18/21 Range/Units 07:18 12:32 Sodium (137-145) mmol/L BUN (7-17) mg/dL Glucose (74-99) mg/dL POC Glucose (mg/dL) 186 H 184 H (75-99) mg/dL Calcium (8.4-10.2) mg/dL Microbiology - Last 24 Hours (Table) 08/15/21 14:42 Urine Culture - Final Urine,Voided Enterococcus faecium Assessment and Plan Assessment: Right flank pain due to acute pyelonephritis Recurrent urinary tract infection with Group D Enteroccoccus,prior history of ESBL E. coli. Recent E. coli infection pansensitive. Cephalgia in a patient with history of migraines Recent cov, June 2021 Diabetes type 2 on insulin pump Hypertension Hyperlipidemia Osteoarthritis History of DVT Chronic migraine headaches Diabetic peripheral neuropathy Obstructive sleep apnea on CPAP at home History of nephrolithiasis Adrenal insufficiency on hydrocortisone 3 times daily. 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 Plan: Continue on current medication regime ,monitoring and symptomatic treatment. Hypertensive, IV fluid hydration discontinued. Antibiotics as per ID. discharge planning in progress pending PICC line placement, DC IV antibiot ics as per ID. The impression and plan of care has been dictated as directed. : I performed a history and examination of this patient, discussed the same with the dictator. I agree with the dictator's note ,documented as a scribe. Any additional findings or plans will be noted.
[2021-08-18 17:17] LABS: Glucose,Whole Blood 204 mg/dL (75-99)
[2021-08-18] MEDS: ESCITALOPRAM 10 MG TAB PO SCH (20:12)
[2021-08-18] MEDS: ATORVASTATIN 10 MG TAB PO SCH (20:13)
[2021-08-18] MEDS: METOPROLOL SUCCINATE (ER) 50 MG TAB.ER.24H PO SCH (20:13)
[2021-08-18 20:30] LABS: Glucose,Whole Blood 218 mg/dL (75-99)
[2021-08-19] MEDS: HYDROcodone/APAP 10-325MG 1 EACH TAB PO PRN ×3 (03:27→20:06)
[2021-08-19] MEDS ORDERED: VANCOMYCIN TROUGH DUE 1 EACH MISC MISCELLANE ONE (04:00)
[2021-08-19] MEDS: HYDROmorphone 1 MG/ML 1 ML SYRINGE IVP PRN ×2 (04:46→08:38)
[2021-08-19] MEDS: VANCOMYCIN 1,250 MG in SODIUM CHLORIDE 0.9% 250 ML IVPB SCH ×2 (06:04→20:58)
[2021-08-19 06:22] LABS: African American GFR (CKD) >90 (>60 ml/min/1.73 sqM); Non-African American GFR(CKD) >90 (>60 ml/min/1.73 sqM)
[2021-08-19 07:32] LABS: Glucose,Whole Blood 169 mg/dL (75-99)
[2021-08-19] MEDS: ONDANSETRON 4 MG/2 ML VIAL IVP PRN (08:38)
[2021-08-19] MEDS: GABAPENTIN 100 MG CAP PO SCH ×3 (08:39→20:07)
[2021-08-19] MEDS: INSULIN ASPART (NovoLOG) 100 UNIT/ML VIAL SQ SCH ×4 (08:39→20:58)
[2021-08-19] MEDS: HEPARIN SODIUM,PORCINE/PF 5,000 UNIT/0.5 ML SYRINGE SQ SCH ×3 (08:39→23:55)
[2021-08-19] MEDS: HYDROCORTISONE 10 MG TAB PO SCH ×3 (08:40→20:07)
[2021-08-19] MEDS: FOLIC ACID 1 MG TAB PO SCH (08:40)
[2021-08-19] MEDS: BRIMONIDINE TARTRATE 0.2% DROPS 5 ML BTL RIGHT EYE SCH ×2 (08:40→20:07)
[2021-08-19] MEDS: PANTOPRAZOLE 40 MG TABLET PO SCH (08:40)
[2021-08-19] MEDS: ASPIRIN 81 MG PO SCH (08:40)
[2021-08-19] MEDS: busPIRone HCl 5 MG TAB PO SCH ×2 (08:40→20:07)
[2021-08-19 11:07] VITALS: BMI 30.4
[2021-08-19 12:10] LABS: Glucose,Whole Blood 181 mg/dL (75-99)
[2021-08-19] MEDS: METOCLOPRAMIDE 5 MG TAB PO SCH ×2 (12:55→18:07)
[2021-08-19 17:12] LABS: Glucose,Whole Blood 194 mg/dL (75-99)
[2021-08-19] MEDS: METOPROLOL SUCCINATE (ER) 50 MG TAB.ER.24H PO SCH (20:07)
[2021-08-19] MEDS: ATORVASTATIN 10 MG TAB PO SCH (20:07)
[2021-08-19] MEDS: ESCITALOPRAM 10 MG TAB PO SCH (20:07)
[2021-08-19 20:19] LABS: Glucose,Whole Blood 245 mg/dL (75-99)
--- NOTE | 2021-08-20 | P.PN ---
Subjective Progress Note Date: 08/18/21 Principal diagnosis: Urinary tract infection Patient is a 70-year-old female with past medical history significant for recurrent urinary tract infection presenting to the hospital with right flank pain nausea and burning of urine did have a positive UA concerning for a symptomatic urinary tract infection. On today's evaluation that is 08/18/2021, the patient remains to be afebrile, the patient pain in the right flank area has slightly decreased in intensity, the patient did have some nausea but no vomiting denies having any diarrhea no chest pain shortness of breath or cough Objective - Vital Signs Vital signs: Vital Signs Temp 98.3 F 08/18/21 07:49 Pulse 66 08/18/21 07:49 Resp 16 08/18/21 07:49 BP 179/53 08/18/21 07:49 Pulse Ox 96 08/18/21 07:49 Intake & Output 08/17/21 08/18/21 08/18/21 18:59 06:59 18:59 Intake Total 120 118 Balance 120 118 Intake: Oral 120 118 Other: Voiding Method Bedside Commode Bedside Commode # Voids 2 3 - Exam GENERAL DESCRIPTION: An elderly female lying in bed in no distress RESPIRATORY SYSTEM: Unlabored breathing , decreased breath sounds at bases HEART: S1 S2 regular rate and rhythm , ABDOMEN: Soft , no tenderness EXTREMITIES: No edema feet - Labs CBC & Chem 7: 08/17/21 07:25 08/19/21 05:14 Labs: Abnormal Lab Results - Last 24 Hours (Table) 08/17/21 08/17/21 08/17/21 Range/Units 07:25 07:25 11:59 RBC 3.92 L (4.10-5.20) X 10*6/uL Hgb 11.6 L (12.0-15.0) g/dL MCHC 31.0 L (32.0-37.0) g/dL RDW 15.8 H (11.5-14.5) % Sodium (137-145) mmol/L BUN (7-17) mg/dL BUN/Creatinine Ratio 26.24 H (12.00-20.00) Ratio Glucose 169 H (70-110) mg/dL POC Glucose (mg/dL) 206 H (75-99) mg/dL Calcium (8.4-10.2) mg/dL 08/17/21 08/17/21 08/18/21 Range/Units 18:01 21:06 06:28 RBC (4.10-5.20) X 10*6/uL Hgb (12.0-15.0) g/dL MCHC (32.0-37.0) g/dL RDW (11.5-14.5) % Sodium 135 L (137-145) mmol/L BUN 23 H (7-17) mg/dL BUN/Creatinine Ratio (12.00-20.00) Ratio Glucose 186 H (70-110) mg/dL POC Glucose (mg/dL) 310 H 317 H (75-99) mg/dL Calcium 8.3 L (8.4-10.2) mg/dL 08/18/21 Range/Units 07:18 RBC (4.10-5.20) X 10*6/uL Hgb (12.0-15.0) g/dL MCHC (32.0-37.0) g/dL RDW (11.5-14.5) % Sodium (137-145) mmol/L BUN (7-17) mg/dL BUN/Creatinine Ratio (12.00-20.00) Ratio Glucose (70-110) mg/dL POC Glucose (mg/dL) 186 H (75-99) mg/dL Calcium (8.4-10.2) mg/dL Microbiology - Last 24 Hours (Table) 08/15/21 14:42 Urine Culture - Final Urine,Voided Enterococcus faecium Assessment and Plan (1) UTI (urinary tract infection) Current Visit: Yes Status: Acute Code(s): N39.0 - URINARY TRACT INFECTION, SITE NOT SPECIFIED SNOMED Code(s): 63262797 Plan: 1patient presented to hospital with right flank pain did have history of some urinary frequency burning and also with some nausea did have a positive UA concerning for symptomatic urinary tract infection. 2patient with multiple antibiotic allergies that would limit the number of antibiotics safe to use 3patient urine has been finalized with enterococcus Feceium that is sensitive to vancomycin, patient to continue vancomycin pharmacy to dose target trough of 15 while watching kidney function Time with Patient: Less than 30
--- NOTE | 2021-08-20 00:01 | P.PN ---
Subjective Progress Note Date: 08/19/21 Principal diagnosis: Urinary tract infection Patient is a 70-year-old female with past medical history significant for recurrent urinary tract infection presenting to the hospital with right flank pain nausea and burning of urine did have a positive UA concerning for a symptomatic urinary tract infection. On today's evaluation that is 08/19/2021, the patient denies any fever or any chills, patient was complaining of severe pain in his lower back that seemed to improve after dose of Dilaudid, the patient pain in the right flank area has slightly decreased in intensity, the patient did have some nausea but no vomiting denies having any diarrhea no chest pain shortness of breath or cough Objective - Vital Signs Vital signs: Vital Signs Temp 98.1 F 08/19/21 14:45 Pulse 86 08/19/21 14:45 Resp 16 08/19/21 14:45 BP 122/72 08/19/21 14:45 Pulse Ox 95 08/19/21 14:45 Intake & Output 08/18/21 08/19/21 08/19/21 18:59 06:59 18:59 Intake Total 298 Balance 298 Weight 70.76 kg Intake: Oral 298 Other: Voiding Method Bedside Commode # Voids 1 1 2 - Exam GENERAL DESCRIPTION: An elderly female lying in bed in no distress RESPIRATORY SYSTEM: Unlabored breathing , decreased breath sounds at bases HEART: S1 S2 regular rate and rhythm , ABDOMEN: Soft , no tenderness EXTREMITIES: No edema feet - Labs CBC & Chem 7: 08/17/21 07:25 08/19/21 05:14 Labs: Abnormal Lab Results - Last 24 Hours (Table) 08/18/21 08/18/21 08/19/21 Range/Units 17:16 20:28 07:31 POC Glucose (mg/dL) 204 H 218 H 169 H (75-99) mg/dL 08/19/21 Range/Units 12:09 POC Glucose (mg/dL) 181 H (75-99) mg/dL Assessment and Plan (1) UTI (urinary tract infection) Current Visit: Yes Status: Acute Code(s): N39.0 - URINARY TRACT INFECTION, SITE NOT SPECIFIED SNOMED Code(s): 22992714 Plan: 1patient presented to hospital with right flank pain did have history of some urinary frequency burning and also with some nausea did have a positive UA concerning for symptomatic urinary tract infection. 2patient with multiple antibiotic allergies that would limit the number of antibiotics safe to use 3patient urine has been finalized with enterococcus Feceium that is sensitive to vancomycin, patient did got a PICC line and will continue vancomycin pharmacy to dose target trough of 15 for another 10 days to finish a course of therapy Time with Patient: Less than 30
[2021-08-20] MEDS: HYDROcodone/APAP 10-325MG 1 EACH TAB PO PRN ×2 (02:38→08:44)
[2021-08-20 07:24] LABS: Glucose,Whole Blood 140 mg/dL (75-99)
[2021-08-20] MEDS: INSULIN ASPART (NovoLOG) 100 UNIT/ML VIAL SQ SCH ×2 (08:27→12:41)
[2021-08-20] MEDS: HEPARIN SODIUM,PORCINE/PF 5,000 UNIT/0.5 ML SYRINGE SQ SCH (08:27)
[2021-08-20] MEDS: HYDROCORTISONE 10 MG TAB PO SCH ×2 (08:28→12:44)
[2021-08-20] MEDS: PANTOPRAZOLE 40 MG TABLET PO SCH (08:29)
[2021-08-20] MEDS: GABAPENTIN 100 MG CAP PO SCH (08:29)
[2021-08-20] MEDS: ASPIRIN 81 MG PO SCH (08:29)
[2021-08-20] MEDS: busPIRone HCl 5 MG TAB PO SCH (08:29)
[2021-08-20] MEDS: METOCLOPRAMIDE 5 MG TAB PO SCH ×2 (08:29→12:44)
[2021-08-20] MEDS: FOLIC ACID 1 MG TAB PO SCH (08:30)
[2021-08-20] MEDS: BRIMONIDINE TARTRATE 0.2% DROPS 5 ML BTL RIGHT EYE SCH (08:30)
[2021-08-20 11:52] LABS: Glucose,Whole Blood 276 mg/dL (75-99)
[2021-08-20] MEDS ORDERED: INSULIN ASPART (NovoLOG) 100 UNIT/ML VIAL SQ ONE (12:45)
[2021-08-20 13:38] VITALS: BP 94/55; PULSE 76; RESP 17; TEMP 99
--- NOTE | 2021-08-20 16:00 | P.PN ---
Subjective Progress Note Date: 08/20/21 Principal diagnosis: Urinary tract infection Patient is a 70-year-old female with past medical history significant for recurrent urinary tract infection presenting to the hospital with right flank pain nausea and burning of urine did have a positive UA concerning for a symptomatic urinary tract infection. On today's evaluation that is 08/20/2021, the patient did spike a fever of 101F yesterday afternoon I was not notified, the patient is afebrile since then and is feeling better, the patient pain in the right flank area has slightly decreased in intensity, the patient did have some nausea but no vomiting denies having any diarrhea no chest pain shortness of breath or cough Objective - Vital Signs Vital signs: Vital Signs Temp 98.3 F 08/20/21 01:53 Pulse 63 08/20/21 01:53 Resp 18 08/20/21 01:53 BP 159/74 08/20/21 01:53 Pulse Ox 96 08/20/21 01:53 Intake & Output 08/19/21 08/20/21 08/20/21 18:59 06:59 18:59 Intake Total 50 240 Balance 50 240 Weight 70.76 kg Intake: Oral 50 240 Other: Voiding Method Bedside Commode # Voids 2 2 - Exam GENERAL DESCRIPTION: An elderly female lying in bed in no distress RESPIRATORY SYSTEM: Unlabored breathing , decreased breath sounds at bases HEART: S1 S2 regular rate and rhythm , ABDOMEN: Soft , no tenderness EXTREMITIES: No edema feet - Labs CBC & Chem 7: 08/17/21 07:25 08/19/21 05:14 Labs: Abnormal Lab Results - Last 24 Hours (Table) 08/19/21 08/19/21 08/19/21 Range/Units 12:09 17:11 20:17 POC Glucose (mg/dL) 181 H 194 H 245 H (75-99) mg/dL 08/20/21 Range/Units 07:05 POC Glucose (mg/dL) 140 H (75-99) mg/dL Assessment and Plan (1) UTI (urinary tract infection) Current Visit: Yes Status: Acute Code(s): N39.0 - URINARY TRACT INFECTION, SITE NOT SPECIFIED SNOMED Code(s): 20910745 Plan: 1patient presented to hospital with right flank pain did have history of some urinary frequency burning and also with some nausea did have a positive UA concerning for symptomatic urinary tract infection. 2patient with multiple antibiotic allergies that would limit the number of ant ibiotics safe to use 3patient urine has been finalized with enterococcus Feceium that is sensitive to vancomycin, patient did got a PICC line and will continue vancomycin pharmacy to dose target trough of 15 for another 10 days on discharge to finish a course of therapy, she'll be given a dose of daptomycin as a home care would not be able to do her evening dose of vancomycin, patient and has questions and those were answered Time with Patient: Less than 30
--- NOTE | 2021-08-20 16:17 | P.PN ---
Subjective Progress Note Date: 08/19/21 This is a 70-year-old female admitted with constant right-sided flank pain, UA with moderate leukocytes, culture pending, in a patient with history of ESBL UTI, multiple antibiotic ALLERGIES. Ertapenem initiated. Patient also has PMH of adrenal insufficiency, hydrocortisone will be adjusted for stress dosing. T- max 99.3, normal WBC. Renal function stable. Denies chest pain, palpitations or shortness of breath. Maintaining O2 sats in the 90s on room air. Right flank/groin pain improving on current pain management. 08/17/2021 complaints of headache and increased right flank pain. Urine culture reported group D enterococcus. Antibiotics adjusted per infectious disease, currently on vancomycin. Renal function stable. T-max 99.8, WBC within normal limits. Stress dose of steroids, blood sugars controlled. 08-18-21 didn't sleep well related to "IV machine beeping all night." Right flank pain unchanged. Maintained on IV antibiotics as per ID. Continues on IV fluid hydration. Headache resolved after migraine cocktail yesterday. Denies nausea, vomiting. Afebrile. 08/19/2021 Complains of positive nausea, no emesis-consumed dinner last night but unable to eat breakfast this morning, positive chills.ongoing right flank pain. Afebrile. Stress dosed Steroids, blood sugars currently 160s to 180s. Objective - Vital Signs Vital signs: Vital Signs Temp 98.1 F 08/19/21 14:45 Pulse 86 08/19/21 14:45 Resp 16 08/19/21 14:45 BP 122/72 08/19/21 14:45 Pulse Ox 95 08/19/21 14:45 Intake & Output 08/18/21 08/19/21 08/19/21 18:59 06:59 18:59 Intake Total 298 Balance 298 Weight 70.76 kg Intake: Oral 298 Other: Voiding Method Bedside Commode # Voids 1 1 2 - Exam PHYSICAL EXAMINATION: General: Alert and oriented 3, lying in bed, NAD. HEENT: Normocephalic. Neck is supple. Pupils reactive. Oral mucosa moist NECK: Supple, no JVD, CHEST EXAMINATION: Symmetrical expansion. Lung hinds clear to auscultation, bilateral bases diminished CARDIAC: Normal S1, S2 with no gallops. No murmurs ABDOMEN: Soft. Bowel sounds normal. No guarding, no rigidity, rt mild flank tenderness. Extremities: no edema. No clubbing or cyanosis Neurologic: Cranial nerves II through XII grossly intact, No focal deficits noted Skin: No rash, warm and dry. Microbiology 08/15/21 14:42 Urine,Voided Urine Culture - Final Enterococcus faecium - Labs CBC & Chem 7: 08/17/21 07:25 08/19/21 05:14 Labs: Abnormal Lab Results - Last 24 Hours (Table) 08/18/21 08/18/21 08/19/21 Range/Units 17:16 20:28 07:31 POC Glucose (mg/dL) 204 H 218 H 169 H (75-99) mg/dL 08/19/21 Range/Units 12:09 POC Glucose (mg/dL) 181 H (75-99) mg/dL Assessment and Plan Assessment: Right flank pain due to acute pyelonephritis Recurrent urinary tract infection with enterococcus faecium,prior history of ESBL E. coli. Recent E. coli infection pansensitive. Cephalgia in a patient with history of migraines Recent , June 2021 Diabetes type 2 on insulin pump Hypertension Hyperlipidemia Osteoarthritis History of DVT Chronic migraine headaches Diabetic peripheral neuropathy Obstructive sleep apnea on CPAP at home History of nephrolithiasis Adrenal insufficiency on hydrocortisone 3 times daily. 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 Plan: Continue on current medication regime ,monitoring and symptomatic treatment. Discharge planning in progress for either later this afternoon or in a.m. Reglan added to antiemetic regimen .pain management adjusted, Dilaudid discontinued . DC IV antibiotics as per ID. The impression and plan of care has been dictated as directed. : I performed a history and examination of this patient, discussed the same with the dictator. I agree with the dictator's note ,documented as a scribe. Any additional findings or plans will be noted.
--- NOTE | 2021-08-20 16:25 | P.DS ---
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 coli. Recent E. coli infection pansensitive. Atelectasis Cephalgia in a patient with history of migraines, resolved Recent covid, June 2021 Diabetes type 2 on insulin pump Hypertension Hyperlipidemia Osteoarthritis History of DVT Chronic migraine headaches Diabetic peripheral neuropathy Obstructive sleep apnea on CPAP at home History of nephrolithiasis Adrenal insufficiency on hydrocortisone 3 times daily. 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 Hospital course:This is a 70-year-old female admitted with constant right-sided flank pain, UA with moderate leukocytes, culture pending, in a patient with history of ESBL UTI, multiple antibiotic ALLERGIES. Ertapenem initiated. Patient also has PMH of adrenal insufficiency, hydrocortisone will be adjusted for stress dosing. T-max 99.3, normal WBC. Renal function stable. Denies chest pain, palpitations or shortness of breath. Maintaining O2 sats in the 90s on room air. Right flank/groin pain improving on current pain management. 08/17/2021 complaints of headache and increased right flank pain. Urine culture reported group D enterococcus. Antibiotics adjusted per infectious disease, currently on vancomycin. Renal function stable. T-max 99.8, WBC within normal limits. Stress dose of steroids, blood sugars controlled. 08-18-21 didn't sleep well related to "IV machine beeping all night." Right flank pain unchanged. Maintained on IV antibiotics as per ID. Continues on IV fluid hydration. Headache resolved after migraine cocktail yesterday. Denies nausea, vomiting. Afebrile. 08/19/2021 Complains of positive nausea, no emesis-consumed dinner last night but unable to eat breakfast this morning, positive chills.ongoing right flank pain. Afebrile. Stress dosed Steroids, blood sugars currently 160s to 180s. Urine culture reporting enterococcus faecium ,maintained on IV antibiotics as per infectious disease. Currently afebrile, T-max 101.1. Sitting up in chair, nausea and right flank pain improving. Incentive spirometer ordered for atelectasis. Denies chest pain, palpitations or shortness of breath. Denies lightheadedness, dizziness or focal deficits. Patient will be discharged home today in a stable condition with guarded prognosis, pending final DC recommendations and clearance per ID. The impression and plan of care has been dictated as directed. : I performed a history and examination of this patient, discussed the same with the dictator. I agree with the dictator's note ,documented as a scribe. Any additional findings or plans will be noted. Patient Condition at Discharge: Stable Plan - Discharge Summary New Discharge Prescriptions: Continue Cholecalciferol [Vitamin D3 (25 Mcg = 1000 Iu)] 25 mcg PO DAILY Metoprolol Succinate (ER) [Toprol XL] 100 mg PO HS Meclizine [Antivert] 25 mg PO QID PRN PRN Reason: Vertigo Aspirin 81 mg PO DAILY #0 Ferrous Sulfate [Iron (65 MG Elemental)] 325 mg PO DAILY Vitamin B-Complex Drops 1 ml PO BID Thiamine [Vitamin B-1] 100 mg PO DAILY Folic Acid 0.4 mg PO DAILY L.acidoph,Paracasei, B.lactis [Probiotic] 2 cap PO BID Melatonin 5 mg PO HS PRN PRN Reason: Insomnia Potassium 99 mg PO DAILY Magnesium Oxide [Mag-Ox] 400 mg PO DAILY Gabapentin [Neurontin] 100 mg PO TID #9 cap Spironolactone 50 mg PO DAILY C,E,Zinc,Copper 11/Gkfel6i/Lut [Ocuvite Adult 50 Plus Softgel] 1 cap PO DAILY Cyanocobalamin (Vitamin B-12) [Vitamin B-12] 1,000 mcg PO DAILY Vitamin E 400 unit PO DAILY Brimonidine Tartrate [Alphagan P 0.2% Ophth Soln] 1 drop RIGHT EYE BID Pantoprazole Sodium [Protonix] 40 mg PO DAILY Hydrocortisone [Cortef] 5 mg PO HS #0 Hydrocortisone [Cortef] 10 mg PO DAILY@1200 #0 Hydrocortisone [Cortef] 15 mg PO DAILY #0 Liquid Multi Vitamin 1 oz PO DAILY Butalb/APAP/Caff 50-325-40Mg [Fioricet 50-325-40] 1 tab PO TID PRN #9 tab PRN Reason: Migraine Headache HYDROcodone/APAP 10-325MG [Milliken 10-325] 1 tab PO QID PRN #12 tab PRN Reason: Pain Glucagon [Gvoke Pfs 1-Pack Syringe] 1 mg SQ ONCE PRN PRN Reason: severe hypoglycemia busPIRone HCl [Buspar] 5 mg PO BID Nystatin 1 applic TOPICAL BID PRN PRN Reason: Skin Irritation Insulin Aspart (For Pump) [NovoLOG (For Pump)] 0.01 unit SQ-PUMP CONTINUOUS Cranberry Fruit Extract [Cranberry] 1,500 mg PO BID Escitalopram [Lexapro] 10 mg PO HS lisinopriL 40 mg PO DAILY Ondansetron [Zofran] 4 mg PO Q6H PRN PRN Reason: Nausea Promethazine HCl [Phenergan Syrup] 6.25 mg PO Q6H PRN PRN Reason: Nausea Rosuvastatin Calcium [Crestor] 5 mg PO HS Cephalexin [Keflex] 250 mg PO HS #0 Discharge Medication List Cholecalciferol [Vitamin D3 (25 Mcg = 1000 Iu)] 25 mcg PO DAILY 12/01/14 [History] Metoprolol Succinate (ER) [Toprol XL] 100 mg PO HS 07/06/17 [History] Meclizine [Antivert] 25 mg PO QID PRN 11/26/17 [History] Aspirin 81 mg PO DAILY #0 07/02/18 [Rx] Ferrous Sulfate [Iron (65 MG Elemental)] 325 mg PO DAILY 10/08/18 [History] Folic Acid 0.4 mg PO DAILY 10/08/18 [History] L.acidoph,Paracasei, B.lactis [Probiotic] 2 cap PO BID 10/08/18 [History] Melatonin 5 mg PO HS PRN 10/08/18 [History] Potassium 99 mg PO DAILY 10/08/18 [History] Thiamine [Vitamin B-1] 100 mg PO DAILY 10/08/18 [History] Vitamin B-Complex Drops 1 ml PO BID 10/08/18 [History] Magnesium Oxide [Mag-Ox] 400 mg PO DAILY 12/06/19 [History] Gabapentin [Neurontin] 100 mg PO TID #9 cap 03/24/20 [Rx] C,E,Zinc,Copper 11/Vlged5w/Lut [Ocuvite Adult 50 Plus Softgel] 1 cap PO DAILY 06/25/20 [History] Cyanocobalamin (Vitamin B-12) [Vitamin B-12] 1,000 mcg PO DAILY 06/25/20 [History] Spironolactone 50 mg PO DAILY 06/25/20 [History] Vitamin E 400 unit PO DAILY 06/25/20 [History] Brimonidine Tartrate [Alphagan P 0.2% Ophth Soln] 1 drop RIGHT EYE BID 11/26/20 [History] Glucagon [Gvoke Pfs 1-Pack Syringe] 1 mg SQ ONCE PRN 11/26/20 [History] Pantoprazole Sodium [Protonix] 40 mg PO DAILY 11/26/20 [History] Hydrocortisone [Cortef] 5 mg PO HS #0 12/16/20 [Rx] Hydrocortisone [Cortef] 10 mg PO DAILY@1200 #0 12/16/20 [Rx] Hydrocortisone [Cortef] 15 mg PO DAILY #0 12/16/20 [Rx] busPIRone HCl [Buspar] 5 mg PO BID 02/04/21 [History] Nystatin 1 applic TOPICAL BID PRN 02/17/21 [History] Insulin Aspart (For Pump) [NovoLOG (For Pump)] 0.01 unit SQ-PUMP CONTINUOUS 03/03/21 [History] Cranberry Fruit Extract [Cranberry] 1,500 mg PO BID 08/15/21 [History] Escitalopram [Lexapro] 10 mg PO HS 08/15/21 [History] Liquid Multi Vitamin 1 oz PO DAILY 08/15/21 [History] Ondansetron [Zofran] 4 mg PO Q6H PRN 08/15/21 [History] Promethazine HCl [Phenergan Syrup] 6.25 mg PO Q6H PRN 08/15/21 [History] Rosuvastatin Calcium [Crestor] 5 mg PO HS 08/15/21 [History] lisinopriL 40 mg PO DAILY 08/15/21 [History] Butalb/APAP/Caff 50-325-40Mg [Fioricet 50-325-40] 1 tab PO TID PRN #9 tab 08/20/21 [Rx] Cephalexin [Keflex] 250 mg PO HS #0 08/20/21 [Rx] HYDROcodone/APAP 10-325MG [Milliken 10-325] 1 tab PO QID PRN #12 tab 08/20/21 [Rx] Follow up Appointment(s)/Referral(s): Andrew Gonsales MD [Primary Care Provider] - 08/23/21 1:45 pm [facility], [NON-STAFF] - 08/21/21 [facility]Infusion [NON-STAFF] - Patient Instructions/Handouts: Daptomycin (By injection) Activity/Diet/Wound Care/Special Instructions: O2 sat on RA:94% Incentive Spirometer every one hour [address] follow up with Dr Gonsales as scheduled. Last received Milliken at 0844 received Daptomycin at 1PM call your dr with return or worsening of the symptoms that brought you here or any concern. activity as tolerated. consistent carbohydrate diet Discharge Disposition: HOME WITH HOME HEALTH SERVICES
[2021-08-21] MEDS ORDERED: VANCOMYCIN TROUGH DUE 1 EACH MISC MISCELLANE ONE (04:00)
== END 2021-08-20 14:50 | disposition home health service (06) | DRG 690 ==
LOC: EC 14:12 → 6NMEDSUR 15:51 → OBSVTOIN 08-16 15:29 → 6NMEDSUR 08-19 02:59
PROVIDERS: ADMIT Family Medicine; ATTEND Family Medicine
PROC: 02HV33Z Insertion of Infusion Device into Superior Vena Cava, Percutaneous Approach (ICD-10-PCS; principal; 2021-08-18 10:25)
DX: N10 Acute pyelonephritis (principal); E27.1 Primary adrenocortical insufficiency; E11.42 Type 2 diabetes mellitus with diabetic polyneuropathy; G47.33 Obstructive sleep apnea (adult) (pediatric); I10 Essential (primary) hypertension; J42 Unspecified chronic bronchitis; E78.5 Hyperlipidemia, unspecified; F32.A Depression, unspecified; M19.90 Unspecified osteoarthritis, unspecified site; M54.81 Occipital neuralgia; M79.7 Fibromyalgia; N28.1 Cyst of kidney, acquired; G43.909 Migraine, unspecified, not intractable, without status migrainosus; B95.2 Enterococcus as the cause of diseases classified elsewhere; Z96.41 Presence of insulin pump (external) (internal); Z86.14 Personal history of Methicillin resistant Staphylococcus aureus infection; Z79.4 Long term (current) use of insulin; Z90.710 Acquired absence of both cervix and uterus; Z90.49 Acquired absence of other specified parts of digestive tract; Z86.718 Personal history of other venous thrombosis and embolism; Z86.19 Personal history of other infectious and parasitic diseases; Z83.3 Family history of diabetes mellitus; Z82.49 Family history of ischemic heart disease and other diseases of the circulatory system; Z82.3 Family history of stroke; Z87.440 Personal history of urinary (tract) infections; Z87.442 Personal history of urinary calculi; Z88.1 Allergy status to other antibiotic agents; Z86.16 Personal history of COVID-19; Z79.82 Long term (current) use of aspirin; Z79.899 Other long term (current) drug therapy; Z80.49 Family history of malignant neoplasm of other genital organs
CPT/HCPCS: 36415; 36573; 76770; 80048; 80202; 81001; 82565; 83690; 85025; 87077; 87086; 87186; 96365; 96375; 96376; 99285

== ENCOUNTER 2021-09-06 10:27 | Inpatient (IN) | payer MEDICARE, BC ==
[2021-09-06] MEDS ORDERED: HYDROmorphone 0.5 MG/0.5 ML SYRINGE IVP STA ×2 (12:12→17:52)
[2021-09-06] MEDS ORDERED: ONDANSETRON 4 MG/2 ML VIAL IVP STA (12:12)
[2021-09-06] MEDS ORDERED: SODIUM CHLORIDE 0.9% 1,000 ML IV STA (12:12)
--- NOTE | 2021-09-06 13:13 | ED ---
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 Patient states about 3 weeks ago she was seen here in the emergency department and was admitted for IV antibiotics due to having a urinary tract infection. Patient states she was admitted to the hospital for one week a nd was placed on IV antibiotics and was then given a PICC line in her left upper extremity and received one more week worth of IV antibiotic at home. She states her last dose of this medication was about 1-1/2 weeks ago. Patient states she was experiencing the same flank pain a few weeks ago when she was diagnosed with UTI. Patient states she has had a history of kidney stones and states her right flank has caused episodic pain since Monday. Patient states once evening she began have episodes of diarrhea and nausea which seemed to come and go in nature. Patient states her pain is 8/10. Patient denies the pain radiating to her abdomen, spine or lower back. Patient denies any fever, IV drug use, vomiting or hematochezia. Patient denies any chest pain, shortness of breath, headache, lightheadedness, dizziness, change in vision, weakness. Patient denies any low back pain, saddle anesthesia, bladder retention/incontinence. - Related Data Home Medications Medication Instructions Recorded Confirmed Cholecalciferol [Vitamin D3 (25 25 mcg PO DAILY 12/01/14 09/06/21 Mcg = 1000 Iu)] Meclizine [Antivert] 25 mg PO QID PRN 11/26/17 09/06/21 Ferrous Sulfate [Iron (65 MG 325 mg PO DAILY 10/08/18 09/06/21 Elemental)] Folic Acid 0.4 mg PO DAILY 10/08/18 09/06/21 L.acidoph,Paracasei, B.lactis 2 cap PO BID 10/08/18 09/06/21 [Probiotic] Melatonin 5 mg PO HS PRN 10/08/18 09/06/21 Potassium 99 mg PO DAILY 10/08/18 09/06/21 Thiamine [Vitamin B-1] 100 mg PO DAILY 10/08/18 09/06/21 Vitamin B-Complex Drops 1 ml PO BID 10/08/18 09/06/21 Magnesium Oxide [Mag-Ox] 400 mg PO DAILY 12/06/19 09/06/21 C,E,Zinc,Copper 11/Abjko2g/Lut 1 cap PO DAILY 06/25/20 09/06/21 [Ocuvite Adult 50 Plus Softgel] Cyanocobalamin (Vitamin B-12) 1,000 mcg PO DAILY 06/25/20 09/06/21 [Vitamin B-12] Spironolactone 50 mg PO DAILY 06/25/20 09/06/21 Vitamin E 400 unit PO DAILY 06/25/20 09/06/21 Brimonidine Tartrate [Alphagan P 1 drop RIGHT EYE BID 11/26/20 09/06/21 0.2% Ophth Soln] Glucagon [Gvoke Pfs 1-Pack Syringe] 1 mg SQ ONCE PRN 11/26/20 09/06/21 Pantoprazole Sodium [Protonix] 40 mg PO DAILY 11/26/20 09/06/21 busPIRone HCl [Buspar] 5 mg PO BID 02/04/21 09/06/21 Nystatin 1 applic TOPICAL BID PRN 02/17/21 09/06/21 Insulin Aspart (For Pump) [NovoLOG 0.01 unit SQ-PUMP CONTINUOUS 03/03/21 09/06/21 (For Pump)] Cranberry Fruit Extract [Cranberry] 1,500 mg PO BID 08/15/21 09/06/21 Escitalopram [Lexapro] 10 mg PO HS 08/15/21 09/06/21 Liquid Multi Vitamin 30 ml PO DAILY 08/15/21 09/06/21 Ondansetron [Zofran] 4 mg PO Q6H PRN 08/15/21 09/06/21 Promethazine HCl [Phenergan Syrup] 6.25 mg PO Q6H PRN 08/15/21 09/06/21 Rosuvastatin Calcium [Crestor] 5 mg PO HS 08/15/21 09/06/21 lisinopriL 40 mg PO DAILY 08/15/21 09/06/21 Cholestyramine (with Sugar) 4 gm PO BID PRN 09/06/21 09/06/21 [Cholestyramine Packet] Metoprolol Succinate [Toprol XL] 100 mg PO HS 09/06/21 09/06/21 Sucralfate [Carafate] 1 gm PO AC-TID 09/06/21 09/06/21 Previous Rx's Medication Instructions Recorded Aspirin 81 mg PO DAILY #0 07/02/18 Gabapentin [Neurontin] 100 mg PO TID #9 cap 03/24/20 Hydrocortisone [Cortef] 5 mg PO HS #0 12/16/20 Hydrocortisone [Cortef] 10 mg PO DAILY@1200 #0 12/16/20 Hydrocortisone [Cortef] 15 mg PO DAILY #0 12/16/20 Butalb/APAP/Caff 50-325-40Mg 1 tab PO TID PRN #9 tab 08/20/21 [Fioricet 50-325-40] Cephalexin [Keflex] 250 mg PO HS #0 08/20/21 HYDROcodone/APAP 10-325MG [Scurry 1 tab PO QID PRN #12 tab 08/20/21 10-325] Allergies Allergy/AdvReac Type Severity Reaction Status Date / Time butorphanol tartrate Allergy BLISTERS Verified 09/06/21 13:44 [From Stadol] IN MOUTH ceftriaxone [From Rocephin] Allergy Unknown Verified 09/06/21 13:44 clarithromycin [From Biaxin] Allergy Rash/Hives Verified 09/06/21 13:44 clindamycin Allergy Unknown Verified 09/06/21 13:44 codeine Allergy Rash/Hives Verified 09/06/21 13:44 ergotamine tartrate Allergy Unknown Verified 09/06/21 13:44 [From Cafergot] erythromycin base Allergy RASH, GI Verified 09/06/21 13:44 [From E-Mycin] SYMPTOMS ketorolac tromethamine Allergy Rash/Hives Verified 09/06/21 13:44 [From Toradol] liraglutide [From Victoza] Allergy Rash/Hives Verified 09/06/21 13:44 morphine Allergy Rash/Hives Verified 09/06/21 13:44 Penicillins Allergy Rash/Hives Verified 09/06/21 13:44 on upper body pentazocine lactate Allergy SEVERE Verified 09/06/21 13:44 [From Talwin] BLISTERS IN MOUTH pregabalin [From Lyrica] Allergy Rash/Hives Verified 09/06/21 13:44 propoxyphene HCl Allergy Rash/Hives Verified 09/06/21 13:44 [From Darvon] Sulfa (Sulfonamide Allergy Rash/Hives Verified 09/06/21 13:44 Antibiotics) tramadol Allergy Unknown Verified 09/06/21 13:44 monosodium glutamate [MSG] AdvReac Nausea & Verified 09/06/21 13:44 Vomiting nalbuphine HCl [From Nubain] AdvReac Nausea & Verified 09/06/21 13:44 Vomiting Review of Systems ROS Statement: Those systems with pertinent positive or pertinent negative responses have been documented in the HPI. ROS Other: All systems not noted in ROS Statement are negative. 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, DVT R calf in 1976, cardiac murmur, occipital neuraligia, balance issues-has narrowing of vessels "in the back of my head", vertigo, varicosities, states rt shoulder torn rotator cuff History of Any Multi-Drug Resistant Organisms: ESBL, MRSA, VRE Date of last positivie culture/infection: 11/25/20 ESBL;12/06/19 VRE; 03/10/11 MRSA MDRO Source:: Urine ESBL; Urine-VRE: MRSA 4th Right TOE Past Surgical History: Appendectomy, Back Surgery, Bladder Surgery, Breast Surgery, Cholecystectomy, Heart Catheterization, Hysterectomy, Orthopedic Surgery, Tonsillectomy Additional Past Surgical History / Comment(s): Lumbar fusions, bladder suspension, occipital nerve blocks, 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, R wrist/elbow nerve repair, bone removed R shoulder, 4th toe R foot partial amputation, bilateral feet/bunionectomies, R knee arthroscopies, R orbit decompression with ethmoidectomy and eyelid lift, EGD, colonoscopies, cystocopies, lithotripsy/stents, bilateral breast reduction, bilateral cataract removals, parathyroid surgery - April 2019, pain clinic procedures Past Anesthesia/Blood Transfusion Reactions: No Reported Reaction Additional Past Anesthesia/Blood Transfusion Reaction / Comment(s): never recieved blood Past Psychological History: Depression Smoking Status: Never smoker Past Alcohol Use History: Rare Past Drug Use History: None Reported - Past Family History Father Family Medical History: Coronary Artery Disease (CAD), CVA/TIA, Diabetes Mellitus, Myocardial Infarction (RI), Pneumonia Additional Family Medical History / Comment(s): Father at the age of 78yrs from RI and pneumonia. Mother Family Medical History: Cancer, Congestive Heart Failure (CHF) Additional Family Medical History / Comment(s): Mother had uterine cancer. She recently at the age of 96yrs old from shingles. General Exam Limitations: no limitations General appearance: alert, in no apparent distress Head exam: Present: atraumatic, normocephalic, normal inspection Eye exam: Present: normal appearance, PERRL, EOMI. Absent: scleral icterus, conjunctival injection, periorbital swelling ENT exam: Present: normal exam, mucous membranes moist Neck exam: Present: normal inspection, full ROM. Absent: tenderness, meningismus, lymphadenopathy Respiratory exam: Present: normal lung sounds bilaterally. Absent: respiratory distress, wheezes, rales, rhonchi, stridor Cardiovascular Exam: Present: regular rate, normal rhythm, normal heart sounds. Absent: systolic murmur, diastolic murmur, rubs, gallop, clicks GI/Abdominal exam: Present: soft, normal bowel sounds. Absent: distended, tenderness, guarding, rebound, rigid Extremities exam: Present: normal inspection, full ROM, normal capillary refill. Absent: tenderness, pedal edema, joint swelling, calf tenderness Back exam: Present: normal inspection, full ROM, CVA tenderness (R). Absent: CVA tenderness (L), paraspinal tenderness, vertebral tenderness Neurological exam: Present: alert, oriented X3, CN II-XII intact Psychiatric exam: Present: normal affect, normal mood Skin exam: Present: warm, dry, intact, normal color. Absent: rash Course Vital Signs 09/06/21 09/06/21 10:35 18:18 Temperature 98.6 F Pulse Rate 56 L 72 Respiratory 16 16 Rate Blood Pressure 164/88 176/87 O2 Sat by Pulse 98 94 L Oximetry Medical Decision Making - Medical Decision Making This 70-year-old female presents emergency Department with right flank pain, nausea and diarrhea since Monday. Patient with 11.9 white blood cells, urine with moderate leukocyte esterase and 21 white blood cells present. Patient's pain was controlled in the emergency department with Dilaudid and Zofran was given for nausea. I did speak with who agreed to admit patient to his services due to her past history of ESBL UTI infection last month. He agreed to admit patient to his services with patient placed on ertapenem, I did call pharmacy who stated patient was placed on 1 g daily on her last discharge which I did continue. I did consult infectious disease. Urine culture and blood cultures pending. Patient verbally agreed to be admitted to the hospital for further workup, evaluation and treatment. Case discussed in detail with my attending, . - Lab Data Result diagrams: 09/06/21 13:25 09/06/21 13:25 Lab Results 09/06/21 09/06/21 09/06/21 Range/Units 13:25 13:25 13:25 WBC 11.9 H (3.8-10.6) k/uL RBC 4.81 (3.80-5.40) m/uL Hgb 14.5 (11.4-16.0) gm/dL Hct 43.5 (34.0-46.0) % MCV 90.4 (80.0-100.0) fL MCH 30.1 (25.0-35.0) pg MCHC 33.3 (31.0-37.0) g/dL RDW 14.8 (11.5-15.5) % Plt Count 353 (150-450) k/uL MPV 8.0 Neutrophils % 74 % Lymphocytes % 16 % Monocytes % 6 % Eosinophils % 3 % Basophils % 0 % Neutrophils # 8.9 H (1.3-7.7) k/uL Lymphocytes # 1.9 (1.0-4.8) k/uL Monocytes # 0.7 (0-1.0) k/uL Eosinophils # 0.4 (0-0.7) k/uL Basophils # 0.0 (0-0.2) k/uL PT 10.2 (9.0-12.0) sec INR 0.9 (<1.2) APTT 19.7 L (22.0-30.0) sec Sodium 135 L (137-145) mmol/L Potassium 4.0 (3.5-5.1) mmol/L Chloride 105 (98-107) mmol/L Carbon Dioxide 23 (22-30) mmol/L Anion Gap 7 mmol/L BUN 26 H (7-17) mg/dL Creatinine 0.73 (0.52-1.04) mg/dL Est GFR (CKD-EPI)AfAm >90 (>60 ml/min/1.73 sqM) Est GFR (CKD-EPI)NonAf 83 (>60 ml/min/1.73 sqM) Glucose 171 H (74-99) mg/dL Plasma Lactic Acid Sudhir (0.7-2.0) mmol/L Calcium 10.3 H (8.4-10.2) mg/dL Total Bilirubin 0.9 (0.2-1.3) mg/dL AST 40 H (14-36) U/L ALT 41 H (4-34) U/L Alkaline Phosphatase 69 (38-126) U/L Total Protein 6.5 (6.3-8.2) g/dL Albumin 3.9 (3.5-5.0) g/dL Lipase 181 (23-300) U/L Urine Color Urine Appearance (Clear) Urine pH (5.0-8.0) Ur Specific Seward (1.001-1.035) Urine Protein (Negative) Urine Glucose (UA) (Negative) Urine Ketones (Negative) Urine Blood (Negative) Urine Nitrite (Negative) Urine Bilirubin (Negative) Urine Urobilinogen (<2.0) mg/dL Ur Leukocyte Esterase (Negative) Urine RBC (0-5) /hpf Urine WBC (0-5) /hpf Ur Squamous Epith Cells (0-4) /hpf Hyaline Casts (0-2) /lpf Urine Mucus (None) /hpf 09/06/21 09/06/21 Range/Units 13:25 18:07 WBC (3.8-10.6) k/uL RBC (3.80-5.40) m/uL Hgb (11.4-16.0) gm/dL Hct (34.0-46.0) % MCV (80.0-100.0) fL MCH (25.0-35.0) pg MCHC (31.0-37.0) g/dL RDW (11.5-15.5) % Plt Count (150-450) k/uL MPV Neutrophils % % Lymphocytes % % Monocytes % % Eosinophils % % Basophils % % Neutrophils # (1.3-7.7) k/uL Lymphocytes # (1.0-4.8) k/uL Monocytes # (0-1.0) k/uL Eosinophils # (0-0.7) k/uL Basophils # (0-0.2) k/uL PT (9.0-12.0) sec INR (<1.2) APTT (22.0-30.0) sec Sodium (137-145) mmol/L Potassium (3.5-5.1) mmol/L Chloride (98-107) mmol/L Carbon Dioxide (22-30) mmol/L Anion Gap mmol/L BUN (7-17) mg/dL Creatinine (0.52-1.04) mg/dL Est GFR (CKD-EPI)AfAm (>60 ml/min/1.73 sqM) Est GFR (CKD-EPI)NonAf (>60 ml/min/1.73 sqM) Glucose (74-99) mg/dL Plasma Lactic Acid Sudhir 1.4 (0.7-2.0) mmol/L Calcium (8.4-10.2) mg/dL Total Bilirubin (0.2-1.3) mg/dL AST (14-36) U/L ALT (4-34) U/L Alkaline Phosphatase (38-126) U/L Total Protein (6.3-8.2) g/dL Albumin (3.5-5.0) g/dL Lipase (23-300) U/L Urine Color Yellow Urine Appearance Clear (Clear) Urine pH 6.0 (5.0-8.0) Ur Specific Seward 1.025 (1.001-1.035) Urine Protein Trace H (Negative) Urine Glucose (UA) Negative (Negative) Urine Ketones 2+ H (Negative) Urine Blood Negative (Negative) Urine Nitrite Negative (Negative) Urine Bilirubin Negative (Negative) Urine Urobilinogen <2.0 (<2.0) mg/dL Ur Leukocyte Esterase Moderate H (Negative) Urine RBC 2 (0-5) /hpf Urine WBC 21 H (0-5) /hpf Ur Squamous Epith Cells 1 (0-4) /hpf Hyaline Casts 3 H (0-2) /lpf Urine Mucus Rare H (None) /hpf Disposition Clinical Impression: History of Marcel's disease, Urinary tract infection, Right flank pain, Leukocytosis, History of infection due to extended spectrum beta lactamase (ESBL) producing bacteria Disposition: ADMITTED IP TO THIS HOSP Condition: Serious Referrals: Andrew Gonsales MD [Primary Care Provider] - 1-2 days
[2021-09-06 13:49] LABS: ALT 41 U/L (4-34); AST 40 U/L (14-36); African American GFR (CKD) >90 (>60 ml/min/1.73 sqM); Albumin 3.9 g/dL (3.5-5.0); Alkaline Phosphatase 69 U/L (38-126); Anion Gap 7 mmol/L; Blood Urea Nitrogen 26 mg/dL (7-17); Calcium 10.3 mg/dL (8.4-10.2); Carbon Dioxide 23 mmol/L (22-30); Chloride 105 mmol/L (98-107); Glucose 171 mg/dL (74-99); Lipase 181 U/L (23-300); Non-African American GFR(CKD) 83 (>60 ml/min/1.73 sqM); Sodium 135 mmol/L (137-145); Total Bilirubin 0.9 mg/dL (0.2-1.3); Total Protein 6.5 g/dL (6.3-8.2)
[2021-09-06 13:55] LABS: Basophils % (A) 0 %; Eosinophils # (A) 0.4 k/uL (0-0.7); Eosinophils % (A) 3 %; HCT 43.5 % (34.0-46.0); HGB 14.5 gm/dL (11.4-16.0); Lymphocytes # (A) 1.9 k/uL (1.0-4.8); Lymphocytes % (A) 16 %; MCH 30.1 pg (25.0-35.0); MCHC 33.3 g/dL (31.0-37.0); MCV 90.4 fL (80.0-100.0); Monocytes # (A) 0.7 k/uL (0-1.0); Monocytes % (A) 6 %; Neutrophils # (A) 8.9 k/uL (1.3-7.7); Neutrophils % (A) 74 %; Platelet Count 353 k/uL (150-450); RBC 4.81 m/uL (3.80-5.40); RDW 14.8 % (11.5-15.5); WBC 11.9 k/uL (3.8-10.6)
[2021-09-06 14:07] LABS: INR 0.9 (<1.2); Prothrombin Time 10.2 sec (9.0-12.0)
[2021-09-06 14:09] LABS: Partial Thromboplastin Time 19.7 sec (22.0-30.0)
[2021-09-06] MEDS ORDERED: METOCLOPRAMIDE 5 MG/ML 2 ML VIAL IVP STA (15:20)
--- NOTE | 2021-09-06 16:22 | CT ---
EXAMINATION TYPE: CT abdomen pelvis wo con DATE OF EXAM: 09/06/2021 COMPARISON: CT dated 04/22/2020 HISTORY: Right flank pain, history of Macomb's disease. CT DLP: 720.2 mGycm Automated exposure control for dose reduction was used. TECHNIQUE: Helical acquisition of images was performed from the lung bases through the pelvis. FINDINGS: LUNG BASES: No significant abnormality is appreciated. Suspected cardiomegaly. LIVER/GB: No definite lesion by this nonenhanced CT scan. Previous cholecystectomy. PANCREAS: No significant abnormality is seen. SPLEEN: No significant abnormality is seen. ADRENALS: Small adrenal glands. KIDNEYS: Bilateral renal hypodensities likely representing renal cysts. Millimetric bilateral renal n onobstructing calculi versus arterial calcifications. No hydroureter or hydronephrosis. Slightly incr eased density of the renal medulla bilaterally, please correlate for medullary nephrocalcinosis. FREE AIR: No free air is visualized RETROPERITONEAL ADENOPATHY: None visualized REPRODUCTIVE ORGANS: Previous hysterectomy. No gross adnexal mass. URINARY BLADDER: Nondistended PELVIC ADENOPATHY: None visualized. OSSEOUS STRUCTURES: Chronic fractures of the superior and inferior pubic rami with heterotopic bone formation, appreciated previously. Scattered chronic bilateral lower rib fractures. Lower lumbar and sacral fixation. Degenerative changes of the lumbar spine. BOWEL: Unremarkable nondistended stomach, duodenum and small bowel. No gross colonic abnormality. OTHER: Scattered arterial atherosclerotic calcifications. No sizable ascites. Thick bilateral superio r gluteal subcutaneous calcifications, appreciated previously. IMPRESSION: FEW MILLIMETRIC BILATERAL RENAL HYPERDENSITIES, POSSIBLY REPRESENTING NONOBSTRUCTING CALCULI VERSUS R ENAL ARTERIAL CALCIFICATIONS. SLIGHTLY INCREASED DENSITY OF THE RENAL MEDULLA WHICH MAY SUGGEST MILD MEDULLARY NEPHROCALCINOSIS. NO HYDROURETER OR HYDRONEPHROSIS. OTHER INCIDENTAL FINDINGS DETAILED Amanda BUENROSTRO.
[2021-09-06 18:18] LABS: Appearance,Urine Clear (Clear); Bilirubin,Urine Negative (Negative); Blood,Urine Negative (Negative); Color,Urine Yellow; Glucose,Urine (UA) Negative (Negative); Hyaline Casts,Urine 3 /lpf (0-2); Ketones,Urine 2+ (Negative); Leukocyte Esterase,Urine Moderate (Negative); Mucus,Urine Rare /hpf; Nitrite,Urine Negative (Negative); Protein,Urine Trace (Negative); RBC,Urine 2 /hpf (0-5); Specific Gravity,Urine 1.025 (1.001-1.035); Squamous Epithelial Cell,Urine 1 /hpf (0-4); Urobilinogen,Urine <2.0 mg/dL (<2.0); WBC,Urine 21 /hpf (0-5)
[2021-09-06] MEDS ORDERED: NALOXONE 0.4 MG/ML 1 ML VIAL IV PRN (19:38)
[2021-09-06] MEDS: busPIRone HCl 5 MG TAB PO SCH (21:46)
[2021-09-06] MEDS: ESCITALOPRAM 10 MG TAB PO SCH (21:47)
[2021-09-06] MEDS: HYDROmorphone 0.5 MG/0.5 ML SYRINGE IVP PRN (21:50)
[2021-09-06] MEDS: ONDANSETRON 4 MG/2 ML VIAL IVP PRN (21:52)
[2021-09-06] MEDS: ERTAPENEM 1 GM in SODIUM CHLORIDE 0.9% 50 ML IVPB SCH (21:52)
[2021-09-06] MEDS: SODIUM CHLORIDE 0.9% 1,000 ML IV SCH (21:53)
[2021-09-06] MEDS: Insulin Aspart (For Pump) 100 UNIT/ML VIAL SQ-PUMP SCH (21:53)
[2021-09-07] MEDS: HYDROmorphone 0.5 MG/0.5 ML SYRINGE IVP PRN ×7 (01:25→20:18)
[2021-09-07] MEDS: ONDANSETRON 4 MG/2 ML VIAL IVP PRN ×2 (05:56→15:28)
[2021-09-07] MEDS ORDERED: BUTALB/APAP/CAFF 50-325-40MG TAB PO PRN (08:24)
[2021-09-07] MEDS ORDERED: HYDROCORTISONE 10 MG TAB PO SCH ×3 (09:00→21:00)
[2021-09-07] MEDS ORDERED: METHYLPREDNISOLONE SOD SUCCIN IVPB SCH (09:00)
[2021-09-07] MEDS ORDERED: SODIUM CHLORIDE 0.9% IVPB SCH (09:00)
[2021-09-07] MEDS ORDERED: PROMETHAZINE 25 MG TAB PO STA (10:11)
[2021-09-07] MEDS: MAGNESIUM OXIDE 400 MG TAB PO SCH (11:18)
[2021-09-07] MEDS: ASPIRIN 81 MG PO SCH (11:18)
[2021-09-07] MEDS: busPIRone HCl 5 MG TAB PO SCH ×2 (11:18→22:18)
[2021-09-07] MEDS: lisinopriL 20 MG TAB PO SCH ×2 (11:18→11:33)
[2021-09-07] MEDS: CHOLECALCIFEROL 25 MCG (1000 IU) TABLET PO SCH (11:18)
[2021-09-07] MEDS: PANTOPRAZOLE 40 MG TABLET PO SCH (11:19)
[2021-09-07] MEDS: SPIRONOLACTONE 25 MG TAB PO SCH (11:20)
[2021-09-07] MEDS: methylPREDNISolone SOD SUCCI 40 MG/ML 1 ML VIAL IVP SCH ×2 (11:25→16:23)
[2021-09-07] MEDS: GABAPENTIN 100 MG CAP PO SCH ×3 (11:32→22:18)
[2021-09-07] MEDS: ERTAPENEM 1 GM in SODIUM CHLORIDE 0.9% 50 ML IVPB SCH (11:45)
[2021-09-07] MEDS: SODIUM CHLORIDE 0.9% 1,000 ML IV SCH ×2 (11:56→14:20)
[2021-09-07 12:36] LABS: Glucose,Whole Blood 169 mg/dL (75-99)
[2021-09-07] MEDS: SUCRALFATE 1 GM TAB PO SCH ×2 (16:20→16:23)
[2021-09-07 17:35] LABS: Glucose,Whole Blood 254 mg/dL (75-99)
[2021-09-07 19:32] LABS: Glucose,Whole Blood 258 mg/dL (75-99)
[2021-09-07] MEDS: INSULIN ASPART (NovoLOG) 100 UNIT/ML VIAL SQ SCH ×2 (20:11→22:14)
[2021-09-07] MEDS: Insulin Aspart (For Pump) 100 UNIT/ML VIAL SQ-PUMP SCH (21:35)
[2021-09-07] MEDS: ESCITALOPRAM 10 MG TAB PO SCH (22:18)
[2021-09-07] MEDS: ATORVASTATIN 10 MG TAB PO SCH (22:18)
[2021-09-07] MEDS: METOPROLOL SUCCINATE (ER) 100 MG TAB.ER.24H PO SCH (22:18)
--- NOTE | 2021-09-07 22:51 | P.HPIM ---
History of Present Illness H&P Date: 09/07/21 Chief Complaint: Malaise, flank pain Melissa Stark is a 70 yo F with PMH of chronic cystitis with history of MDR bacteria, on keflex prophylactically, adrenal insufficency, T2DM, migraine, chronic pain who presented to the ED complaining of chills, weakness and general malaise. She states that last week she developed diarrhea which has continued since then and she has become progressively more weak. She also complains of poor appetite, nausea and worsening of her chronic flank pain. She denies fevers, chest pain, shortness of breath. On presentation vitals stable, WBC 11.9, UA with positive LE. C diff negative. Review of Systems All systems: negative Constitutional: Reports chills, Reports malaise, Reports weakness, Denies fever Eyes: denies blurred vision, denies pain Ears, nose, mouth and throat: Denies headache, Denies sore throat Cardiovascular: Denies chest pain, Denies shortness of breath Respiratory: Denies cough Gastrointestinal: Reports abdominal pain, Reports belching, Reports diarrhea, Reports nausea, Denies vomiting Genitourinary: Denies dysuria, Denies hematuria Musculoskeletal: Denies myalgias Integumentary: Denies pruritus, Denies rash Neurological: Denies numbness, Denies weakness Psychiatric: Denies anxiety, Denies depression Endocrine: Denies fatigue, Denies weight change 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, neuropathy biltateral feet, chronic bronchitis, ELIZABET with Cpap, UTIs, UTI with sepsis, pyelonephritis/sepsis, nephrolithiasis and has had renal fa ilure d/t blockages, adrenal insufficiency, hyperparathyroidism-with surgery, arthritis in multiple joints, DJD, past bilateral pelvic fractures, 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, DVT R calf in 1976, cardiac murmur, occipital neuraligia, balance issues-has narrowing of vessels "in the back of my head", vertigo, varicosities, states rt shoulder torn rotator cuff History of Any Multi-Drug Resistant Organisms: ESBL, MRSA, VRE Date of last positivie culture/infection: 11/25/20 ESBL;12/06/19 VRE; 03/10/11 MRSA MDRO Source:: Urine ESBL; Urine-VRE: MRSA 4th Right TOE Past Surgical History: Appendectomy, Back Surgery, Bladder Surgery, Breast Surgery, Cholecystectomy, Heart Catheterization, Hysterectomy, Orthopedic Surgery, Tonsillectomy Additional Past Surgical History / Comment(s): Lumbar fusions, bladder suspension, occipital nerve blocks, 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, R wrist/elbow nerve repair, bone removed R shoulder, 4th toe R foot partial amputation, bilateral feet/bunionectomies, R knee arthroscopies, R orbit decompression with ethmoidectomy and eyelid lift, EGD, colonoscopies, cystocopies, lithotripsy/stents, bilateral breast reduction, bilateral cataract removals, parathyroid surgery - April 2019, pain clinic procedures Past Anesthesia/Blood Transfusion Reactions: No Reported Reaction Additional Past Anesthesia/Blood Transfusion Reaction / Comment(s): never recieved blood Past Psychological History: Depression Additional Psychological History / Comment(s): Pt resides with her spouse. She uses a walker. She normally drives. She has a nebulizer, cpap, bsc, shower chair, bp machine, dexcom monitor system for her BG and insulin pump. She has [facility] home care. Smoking Status: Never smoker Past Alcohol Use History: Rare Additional Past Alcohol Use History / Comment(s): no alcohol Past Drug Use History: None Reported - Past Family History Father Family Medical History: Coronary Artery Disease (CAD), CVA/TIA, Diabetes Mellitus, Myocardial Infarction ([place]), Pneumonia Additional Family Medical History / Comment(s): Father at the age of 78yrs from [place] and pneumonia. Mother Family Medical History: Cancer, Congestive Heart Failure (CHF) Additional Family Medical History / Comment(s): Mother had uterine cancer. She recently at the age of 96yrs old from shingles. Medications and Allergies Home Medications Medication Instructions Recorded Confirmed Type Cholecalciferol [Vitamin D3 (25 25 mcg PO DAILY 12/01/14 09/06/21 History Mcg = 1000 Iu)] Meclizine [Antivert] 25 mg PO QID PRN 11/26/17 09/06/21 History Aspirin 81 mg PO DAILY #0 07/02/18 09/06/21 Rx Ferrous Sulfate [Iron (65 MG 325 mg PO DAILY 10/08/18 09/06/21 History Elemental)] Folic Acid 0.4 mg PO DAILY 10/08/18 09/06/21 History L.acidoph,Paracasei, B.lactis 2 cap PO BID 10/08/18 09/06/21 History [Probiotic] Melatonin 5 mg PO HS PRN 10/08/18 09/06/21 History Potassium 99 mg PO DAILY 10/08/18 09/06/21 History Thiamine [Vitamin B-1] 100 mg PO DAILY 10/08/18 09/06/21 History Vitamin B-Complex Drops 1 ml PO BID 10/08/18 09/06/21 History Magnesium Oxide [Mag-Ox] 400 mg PO DAILY 12/06/19 09/06/21 History Gabapentin [Neurontin] 100 mg PO TID #9 cap 03/24/20 09/06/21 Rx C,E,Zinc,Copper 11/Rgbhs9n/Lut 1 cap PO DAILY 06/25/20 09/06/21 History [Ocuvite Adult 50 Plus Softgel] Cyanocobalamin (Vitamin B-12) 1,000 mcg PO DAILY 06/25/20 09/06/21 History [Vitamin B-12] Spironolactone 50 mg PO DAILY 06/25/20 09/06/21 History Vitamin E 400 unit PO DAILY 06/25/20 09/06/21 History Brimonidine Tartrate [Alphagan P 1 drop RIGHT EYE BID 11/26/20 09/06/21 History 0.2% Ophth Soln] Glucagon [Gvoke Pfs 1-Pack Syringe] 1 mg SQ ONCE PRN 11/26/20 09/06/21 History Pantoprazole Sodium [Protonix] 40 mg PO DAILY 11/26/20 09/06/21 History Hydrocortisone [Cortef] 5 mg PO HS #0 12/16/20 09/06/21 Rx Hydrocortisone [Cortef] 10 mg PO DAILY@1200 #0 12/16/20 09/06/21 Rx Hydrocortisone [Cortef] 15 mg PO DAILY #0 12/16/20 09/06/21 Rx busPIRone HCl [Buspar] 5 mg PO BID 02/04/21 09/06/21 History Nystatin 1 applic TOPICAL BID PRN 02/17/21 09/06/21 History Insulin Aspart (For Pump) [NovoLOG 0.01 unit SQ-PUMP CONTINUOUS 03/03/21 09/06/21 History (For Pump)] Cranberry Fruit Extract [Cranberry] 1,500 mg PO BID 08/15/21 09/06/21 History Escitalopram [Lexapro] 10 mg PO HS 08/15/21 09/06/21 History Liquid Multi Vitamin 30 ml PO DAILY 08/15/21 09/06/21 History Ondansetron [Zofran] 4 mg PO Q6H PRN 08/15/21 09/06/21 History Promethazine HCl [Phenergan Syrup] 6.25 mg PO Q6H PRN 08/15/21 09/06/21 History Rosuvastatin Calcium [Crestor] 5 mg PO HS 08/15/21 09/06/21 History lisinopriL 40 mg PO DAILY 08/15/21 09/06/21 History Butalb/APAP/Caff 50-325-40Mg 1 tab PO TID PRN #9 tab 08/20/21 09/06/21 Rx [Fioricet 50-325-40] Cephalexin [Keflex] 250 mg PO HS #0 08/20/21 09/06/21 Rx HYDROcodone/APAP 10-325MG [[place] 1 tab PO QID PRN #12 tab 08/20/21 09/06/21 Rx 10-325] Cholestyramine (with Sugar) 4 gm PO BID PRN 09/06/21 09/06/21 History [Cholestyramine Packet] Metoprolol Succinate [Toprol XL] 100 mg PO HS 09/06/21 09/06/21 History Sucralfate [Carafate] 1 gm PO AC-TID 09/06/21 09/06/21 History Allergies Allergy/AdvReac Type Severity Reaction Status Date / Time butorphanol tartrate Allergy BLISTERS Verified 09/06/21 13:44 [From Stadol] IN MOUTH ceftriaxone [From Rocephin] Allergy Unknown Verified 09/06/21 13:44 clarithromycin [From Biaxin] Allergy Rash/Hives Verified 09/06/21 13:44 clindamycin Allergy Unknown Verified 09/06/21 13:44 codeine Allergy Rash/Hives Verified 09/06/21 13:44 ergotamine tartrate Allergy Unknown Verified 09/06/21 13:44 [From Cafergot] erythromycin base Allergy RASH, GI Verified 09/06/21 13:44 [From E-Mycin] SYMPTOMS ketorolac tromethamine Allergy Rash/Hives Verified 09/06/21 13:44 [From Toradol] liraglutide [From Victoza] Allergy Rash/Hives Verified 09/06/21 13:44 morphine Allergy Rash/Hives Verified 09/06/21 13:44 Penicillins Allergy Rash/Hives Verified 09/06/21 13:44 on upper body pentazocine lactate Allergy SEVERE Verified 09/06/21 13:44 [From Talwin] BLISTERS IN MOUTH pregabalin [From Lyrica] Allergy Rash/Hives Verified 09/06/21 13:44 propoxyphene HCl Allergy Rash/Hives Verified 09/06/21 13:44 [From Darvon] Sulfa (Sulfonamide Allergy Rash/Hives Verified 09/06/21 13:44 Antibiotics) tramadol Allergy Unknown Verified 09/06/21 13:44 monosodium glutamate [MSG] AdvReac Nausea & Verified 09/06/21 13:44 Vomiting nalbuphine HCl [From Nubain] AdvReac Nausea & Verified 09/06/21 13:44 Vomiting Physical Exam Vitals: Vital Signs Temp Pulse Resp BP BP Pulse Ox 09/07/21 19:51 101 H 18 170/90 96 09/07/21 17:30 98.1 F 86 96 H 160/92 09/07/21 15:07 17 09/07/21 15:00 98.2 F 103 H 18 184/80 95 09/07/21 08:00 17 09/07/21 07:00 98.6 F 107 H 18 167/90 93 L 09/07/21 01:45 98.4 F 109 H 17 148/78 93 L Intake and Output 09/07/21 09/07/21 09/07/21 06:59 14:59 22:59 Output Total 0 Balance 0 Output: Emesis 0 Other: Voiding Method Toilet Toilet Toilet Diaper Diaper Diaper # Voids 1 3 # Bowel Movements 0 General: well nourished, well developed, NAD. Vitals reviewed Eyes: PERRL, EOMI, conjunctiva normal HENT: normocephalic, mucus membranes moist Neck: supple, no JVD Lungs: normal respiratory effort, no wheezes or rales CV: Regular rate and rhythm, no murmur. Peripheral pulses 2+ Abdomen: soft, nondistended, no organomegaly. Generalized tenderness Lymph: no cervical or axillary LAD Skin: warm and dry. Neuro: A&Ox3, normal mood and affect Results CBC & Chem 7: 09/06/21 13:25 09/06/21 13:25 Labs: Abnormal Lab Results - Last 24 Hours (Table) 09/07/21 09/07/21 09/07/21 Range/Units 12:35 17:33 19:30 POC Glucose (mg/dL) 169 H 254 H 258 H (75-99) mg/dL Microbiology - Last 24 Hours (Table) 09/06/21 19:59 Blood Culture - Preliminary Blood No Growth after 24 hours 09/06/21 19:59 Blood Culture - Preliminary Blood No Growth after 24 hours 09/06/21 18:07 Urine Culture - Final Urine,Clean Catch Thrombosis Risk Factor Assmnt - Choose All That Apply Each Risk Factor Represents 2 Points: Age 61-74 years Thrombosis Risk Factor Assessment Total Risk Factor Score: 2 Thrombosis Risk Factor Assessment Level: Low Risk Assessment and Plan Plan: 1. Flank pain, history of chronic cystitis, multiple drug allergies. Check blood and urine cultures. Start invanz, consult ID for further recommendations 2. Adrenal insufficiency. IV solumedrol, hold cortef 3. T2DM. Continue basal rate of pump. Accucheck and sliding scale 4. Nausea. Zofran and reglan prn
--- NOTE | 2021-09-07 23:50 | P.CONS ---
History of Present Illness - Reason for Consult Consult date: 09/07/21 Urinary tract infection history of ESBL Requesting physician: Andrew Gonsales - Chief Complaint Diarrhea nausea vomiting x few days - History of Present Illness Patient is a 70-year old female with a past medical history significant for recurrent urinary tract infection she was recently admitted at this facility and treated for UTI patient urine culture were positive for Enterococcus faecium that was sensitive to vancomycin patient did get a PICC line and was advised a 10-day course of IV vancomycin with the patient has completed about a week ago patient now presenting back to the ER yesterday afternoon with complaints of right flank pain nausea and diarrhea that has been getting worse for the few days before presentation to the hospital patient describes the pain to the flank area to be more of a dull aching to sharp almost 8 out of 10 with no radiation with associated nausea vomiting and diarrhea has been complaining of some burning of urine with the symptom the patient was evaluated by ER physician on arrival to the ER the patient was afebrile patient did have white count of 11.9 with a left shift creatinine was normal AST ALT were mildly elevated patient urine was positive with moderate leukocyte esterase 21 WBC C. difficile was negative blood urine culture is currently pending patient did have a CT of abdominal pelvis bilateral renal hypodensities likely representing cyst bilateral nonobstructing calculi no hydroureter or hydronephrosis and no mention of any colitis patient was started on Invanz admitted to the hospital infectious disease was consulted for further management of antibiotic therapy Review of Systems Positive point has been mentioned in the HPI rest of the systems are negative Past Medical History Past Medical History: Diabetes Mellitus, Deep Vein Thrombosis (DVT), Fibromyalgia, Hyperlipidemia, Hypertension, Osteoarthritis (OA), Pneumonia, Shanna l Disease, Sleep Apnea/CPAP/BIPAP, Vascular Disorder Additional Past Medical History / Comment(s): 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, DVT R calf in 1976, cardiac murmur, occipital neuraligia, balance issues-has narrowing of vessels "in the back of my head", vertigo, varicosities, states rt shoulder torn rotator cuff History of Any Multi-Drug Resistant Organisms: ESBL, MRSA, VRE Year Discovered:: 11/25/20 ESBL;12/06/19 VRE; 03/10/11 MRSA MDRO Source:: Urine ESBL; Urine-VRE: MRSA 4th Right TOE Past Surgical History: Appendectomy, Back Surgery, Bladder Surgery, Breast Surgery, Cholecystectomy, Heart Catheterization, Hysterectomy, Orthopedic Surgery, Tonsillectomy Additional Past Surgical History / Comment(s): Lumbar fusions, bladder suspension, occipital nerve blocks, 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, R wrist/elbow nerve repair, bone removed R shoulder, 4th toe R foot partial amputation, bilateral feet/bunionectomies, R knee arthroscopies, R orbit decompression with ethmoidectomy and eyelid lift, EGD, colonoscopies, cystocopies, lithotripsy/stents, bilateral breast reduction, bilateral cataract removals, parathyroid surgery - April 2019, pain clinic procedures Past Anesthesia/Blood Transfusion Reactions: No Reported Reaction Additional Past Anesthesia/Blood Transfusion Reaction / Comm: never recieved blood Past Psychological History: Depression Additional Psychological History / Comment(s): Pt resides with her spouse. She uses a walker. She normally drives. She has a nebulizer, cpap, bsc, shower chair, bp machine, dexcom monitor system for her BG and insulin pump. She has [facility] home care. Smoking Status: Never smoker Past Alcohol Use History: Rare Additional Past Alcohol Use History / Comment(s): no alcohol Past Drug Use History: None Reported - Past Family History Father Family Medical History: Coronary Artery Disease (CAD), CVA/TIA, Diabetes Mellitus, Myocardial Infarction ([place]), Pneumonia Additional Family Medical History / Comment(s): Father at the age of 78yrs from [place] and pneumonia. Mother Family Medical History: Cancer, Congestive Heart Failure (CHF) Additional Family Medical History / Comment(s): Mother had uterine cancer. She recently at the age of 96yrs old from shingles. Medications and Allergies Home Medications Medication Instructions Recorded Confirmed Type Cholecalciferol [Vitamin D3 (25 25 mcg PO DAILY 12/01/14 09/06/21 History Mcg = 1000 Iu)] Meclizine [Antivert] 25 mg PO QID PRN 11/26/17 09/06/21 History Aspirin 81 mg PO DAILY #0 07/02/18 09/06/21 Rx Ferrous Sulfate [Iron (65 MG 325 mg PO DAILY 10/08/18 09/06/21 History Elemental)] Folic Acid 0.4 mg PO DAILY 10/08/18 09/06/21 History L.acidoph,Paracasei, B.lactis 2 cap PO BID 10/08/18 09/06/21 History [Probiotic] Melatonin 5 mg PO HS PRN 10/08/18 09/06/21 History Potassium 99 mg PO DAILY 10/08/18 09/06/21 History Thiamine [Vitamin B-1] 100 mg PO DAILY 10/08/18 09/06/21 History Vitamin B-Complex Drops 1 ml PO BID 10/08/18 09/06/21 History Magnesium Oxide [Mag-Ox] 400 mg PO DAILY 12/06/19 09/06/21 History Gabapentin [Neurontin] 100 mg PO TID #9 cap 03/24/20 09/06/21 Rx C,E,Zinc,Copper 11/Gjafh6n/Lut 1 cap PO DAILY 06/25/20 09/06/21 History [Ocuvite Adult 50 Plus Softgel] Cyanocobalamin (Vitamin B-12) 1,000 mcg PO DAILY 06/25/20 09/06/21 History [Vitamin B-12] Spironolactone 50 mg PO DAILY 06/25/20 09/06/21 History Vitamin E 400 unit PO DAILY 06/25/20 09/06/21 History Brimonidine Tartrate [Alphagan P 1 drop RIGHT EYE BID 11/26/20 09/06/21 History 0.2% Ophth Soln] Glucagon [Gvoke Pfs 1-Pack Syringe] 1 mg SQ ONCE PRN 11/26/20 09/06/21 History Pantoprazole Sodium [Protonix] 40 mg PO DAILY 11/26/20 09/06/21 History Hydrocortisone [Cortef] 5 mg PO HS #0 12/16/20 09/06/21 Rx Hydrocortisone [Cortef] 10 mg PO DAILY@1200 #0 12/16/20 09/06/21 Rx Hydrocortisone [Cortef] 15 mg PO DAILY #0 12/16/20 09/06/21 Rx busPIRone HCl [Buspar] 5 mg PO BID 02/04/21 09/06/21 History Nystatin 1 applic TOPICAL BID PRN 02/17/21 09/06/21 History Insulin Aspart (For Pump) [NovoLOG 0.01 unit SQ-PUMP CONTINUOUS 03/03/21 History (For Pump)] Cranberry Fruit Extract [Cranberry] 1,500 mg PO BID 08/15/21 09/06/21 History Escitalopram [Lexapro] 10 mg PO HS 08/15/21 09/06/21 History Liquid Multi Vitamin 30 ml PO DAILY 08/15/21 09/06/21 History Ondansetron [Zofran] 4 mg PO Q6H PRN 08/15/21 09/06/21 History Promethazine HCl [Phenergan Syrup] 6.25 mg PO Q6H PRN 08/15/21 09/06/21 History Rosuvastatin Calcium [Crestor] 5 mg PO HS 08/15/21 09/06/21 History lisinopriL 40 mg PO DAILY 08/15/21 09/06/21 History Butalb/APAP/Caff 50-325-40Mg 1 tab PO TID PRN #9 tab 08/20/21 09/06/21 Rx [Fioricet 50-325-40] Cephalexin [Keflex] 250 mg PO HS #0 08/20/21 09/06/21 Rx HYDROcodone/APAP 10-325MG [[place] 1 tab PO QID PRN #12 tab 08/20/21 09/06/21 Rx 10-325] Cholestyramine (with Sugar) 4 gm PO BID PRN 09/06/21 09/06/21 History [Cholestyramine Packet] Metoprolol Succinate [Toprol XL] 100 mg PO HS 09/06/21 09/06/21 History Sucralfate [Carafate] 1 gm PO AC-TID 09/06/21 09/06/21 History Allergies Allergy/AdvReac Type Severity Reaction Status Date / Time butorphanol tartrate Allergy BLISTERS Verified 09/06/21 13:44 [From Stadol] IN MOUTH ceftriaxone [From Rocephin] Allergy Unknown Verified 09/06/21 13:44 clarithromycin [From Biaxin] Allergy Rash/Hives Verified 09/06/21 13:44 clindamycin Allergy Unknown Verified 09/06/21 13:44 codeine Allergy Rash/Hives Verified 09/06/21 13:44 ergotamine tartrate Allergy Unknown Verified 09/06/21 13:44 [From Cafergot] erythromycin base Allergy RASH, GI Verified 09/06/21 13:44 [From E-Mycin] SYMPTOMS ketorolac tromethamine Allergy Rash/Hives Verified 09/06/21 13:44 [From Toradol] liraglutide [From Victoza] Allergy Rash/Hives Verified 09/06/21 13:44 morphine Allergy Rash/Hives Verified 09/06/21 13:44 Penicillins Allergy Rash/Hives Verified 09/06/21 13:44 on upper body pentazocine lactate Allergy SEVERE Verified 09/06/21 13:44 [From Talwin] BLISTERS IN MOUTH pregabalin [From Lyrica] Allergy Rash/Hives Verified 09/06/21 13:44 propoxyphene HCl Allergy Rash/Hives Verified 09/06/21 13:44 [From Darvon] Sulfa (Sulfonamide Allergy Rash/Hives Verified 09/06/21 13:44 Antibiotics) tramadol Allergy Unknown Verified 09/06/21 13:44 monosodium glutamate [MSG] AdvReac Nausea & Verified 09/06/21 13:44 Vomiting nalbuphine HCl [From Nubain] AdvReac Nausea & Verified 09/06/21 13:44 Vomiting Physical Exam Vitals: Vital Signs Temp Pulse Pulse Resp BP BP BP 09/07/21 08:00 17 09/07/21 07:00 98.6 F 107 H 18 167/90 09/07/21 01:45 98.4 F 109 H 17 148/78 09/06/21 22:24 98.4 F 81 17 169/83 09/06/21 18:18 72 16 176/87 Pulse Ox 09/07/21 08:00 09/07/21 07:00 93 L 09/07/21 01:45 93 L 09/06/21 22:24 100 09/06/21 18:18 94 L Intake and Output 09/06/21 09/07/21 09/07/21 22:59 06:59 14:59 Output Total 1 Balance -1 Output: Emesis 1 Other: Voiding Method Toilet Toilet Diaper Diaper # Voids 1 Weight 69.4 kg GENERAL DESCRIPTION: An elderly female lying in bed, no distress. No tachypnea or accessory muscle of respiration use. HEENT: Shows Pallor , no scleral icterus. Oral mucous membrane is dry. No pharyngeal erythema or thrush NECK: Trachea central, no thyromegaly. LUNGS: Unlabored breathing. Clear to auscultation anteriorly. No wheeze or crackle. HEART: S1, S2, regular rate and rhythm. No loud murmur ABDOMEN: Soft, no tenderness , guarding or rigidity, no organomegaly EXTREMITIES: No edema of feet. SKIN: No rash, no masses palpable. NEUROLOGICAL: The patient is awake, alert, oriented x3, mood and affect normal. Results CBC & Chem 7: 09/06/21 13:25 09/06/21 13:25 Labs: Abnormal Lab Results - Last 24 Hours (Table) 09/06/21 09/06/21 09/06/21 Range/Units 13:25 13:25 13:25 WBC 11.9 H (3.8-10.6) k/uL Neutrophils # 8.9 H (1.3-7.7) k/uL APTT 19.7 L (22.0-30.0) sec Sodium 135 L (137-145) mmol/L BUN 26 H (7-17) mg/dL Glucose 171 H (74-99) mg/dL Calcium 10.3 H (8.4-10.2) mg/dL AST 40 H (14-36) U/L ALT 41 H (4-34) U/L Urine Protein (Negative) Urine Ketones (Negative) Ur Leukocyte Esterase (Negative) Urine WBC (0-5) /hpf Hyaline Casts (0-2) /lpf Urine Mucus (None) /hpf 09/06/21 Range/Units 18:07 WBC (3.8-10.6) k/uL Neutrophils # (1.3-7.7) k/uL APTT (22.0-30.0) sec Sodium (137-145) mmol/L BUN (7-17) mg/dL Glucose (74-99) mg/dL Calcium (8.4-10.2) mg/dL AST (14-36) U/L ALT (4-34) U/L Urine Protein Trace H (Negative) Urine Ketones 2+ H (Negative) Ur Leukocyte Esterase Moderate H (Negative) Urine WBC 21 H (0-5) /hpf Hyaline Casts 3 H (0-2) /lpf Urine Mucus Rare H (None) /hpf Microbiology - Last 24 Hours (Table) 09/06/21 18:07 Urine Culture - Preliminary Urine,Clean Catch Assessment and Plan (1) UTI (urinary tract infection) Current Visit: Yes Status: Acute Code(s): N39.0 - URINARY TRACT INFECTION, SITE NOT SPECIFIED SNOMED Code(s): 65360289 Plan: 1patient presented to hospital with acute nausea vomiting diarrhea and right flank pain in this patient who did have a history of recurrent UTI ultrasound did show some cyst and nonobstructive calculi could be responsible for these recurrent UTIs, patient CT abdominal pelvis did not show evidence of colitis and stool for C. difficile is negative. 2continue the patient on Invanz 1 g daily while waiting for the culture to finalize. 3gentle IV fluid We will follow on clinical condition and cultures to further adjust medication if needed Thank you for this consultation we will follow the patient along with you Time with Patient: Greater than 30
[2021-09-08] MEDS: methylPREDNISolone SOD SUCCI 40 MG/ML 1 ML VIAL IVP SCH ×4 (00:14→23:39)
[2021-09-08] MEDS: HYDROmorphone 0.5 MG/0.5 ML SYRINGE IVP PRN ×7 (00:14→23:38)
[2021-09-08] MEDS: HYDROcodone/APAP 10-325MG 1 EACH TAB PO PRN (03:01)
[2021-09-08] MEDS: SODIUM CHLORIDE 0.9% 1,000 ML IV SCH ×2 (03:10→14:43)
[2021-09-08] MEDS: ERTAPENEM 1 GM in SODIUM CHLORIDE 0.9% 50 ML IVPB SCH (07:23)
[2021-09-08] MEDS: GABAPENTIN 100 MG CAP PO SCH ×3 (07:25→20:45)
[2021-09-08] MEDS: MAGNESIUM OXIDE 400 MG TAB PO SCH (07:26)
[2021-09-08] MEDS: busPIRone HCl 5 MG TAB PO SCH ×2 (07:26→20:45)
[2021-09-08] MEDS: ASPIRIN 81 MG PO SCH (07:27)
[2021-09-08] MEDS: SPIRONOLACTONE 25 MG TAB PO SCH (07:27)
[2021-09-08] MEDS: PANTOPRAZOLE 40 MG TABLET PO SCH (07:27)
[2021-09-08] MEDS: CHOLECALCIFEROL 25 MCG (1000 IU) TABLET PO SCH (07:27)
[2021-09-08] MEDS: SUCRALFATE 1 GM TAB PO SCH ×3 (07:27→17:09)
[2021-09-08 07:43] LABS: Glucose,Whole Blood 210 mg/dL (75-99)
[2021-09-08] MEDS: INSULIN ASPART (NovoLOG) 100 UNIT/ML VIAL SQ SCH ×4 (07:45→20:45)
[2021-09-08] MEDS: ONDANSETRON 4 MG/2 ML VIAL IVP PRN (07:48)
[2021-09-08] MEDS: BRIMONIDINE TARTRATE 0.2% DROPS 5 ML BTL RIGHT EYE SCH ×2 (10:16→20:45)
[2021-09-08 12:01] LABS: Glucose,Whole Blood 145 mg/dL (75-99)
[2021-09-08] MEDS ORDERED: MAGNESIUM SULFATE-D5W PMX 1 GM in DEXTROSE/WATER 1 100ML.BAG IVPB ONE (12:26)
[2021-09-08] MEDS ORDERED: ACETAMINOPHEN IV (For NPO) 1,000 MG in EMPTY BAG 1 BAG IVPB STA (12:26)
--- NOTE | 2021-09-08 12:37 | P.PN ---
Subjective Progress Note Date: 09/08/21 Melissa Pena is a 70 yo F with PMH of chronic cystitis with history of MDR bacteria, on keflex prophylactically, adrenal insufficency, T2DM, migraine, chronic pain who presented to the ED complaining of chills, weakness and general malaise. She states that last week she developed diarrhea which has continued since then and she has become progressively more weak. She also complains of poor appetite, nausea and worsening of her chronic flank pain. She denies fevers, chest pain, shortness of breath. On presentation vitals stable, WBC 11.9, UA with positive LE. C diff negative. 08/11/2021 continues to have right flank pain, decreased appetite, migraine headache. Reports nausea, no emesis since yesterday morning. Afebrile. C. diff negative. Maintained on gentle IV fluid hydration, IV steroids, Invanz. Blood sugars fairly controlled /insulin pump .Urine culture reporting no growth. Objective - Vital Signs Vital signs: Vital Signs Temp 98.2 F 09/08/21 07:38 Pulse 93 09/08/21 07:38 Resp 16 09/08/21 07:38 BP 185/90 09/08/21 07:38 Pulse Ox 100 09/08/21 07:38 Intake & Output 09/07/21 09/08/21 09/08/21 18:59 06:59 18:59 Intake Total 120 Output Total 0 Balance 0 120 Intake: Oral 120 Output: Emesis 0 Other: Voiding Method Toilet Toilet Toilet Diaper Diaper Diaper # Voids 3 # Bowel Movements 0 - Exam General: Lying in bed, NAD. Vitals reviewed Eyes: PERRL, EOMI, conjunctiva normal HENT: normocephalic, mucus membranes moist Neck: supple, no JVD Lungs: normal respiratory effort, no wheezes or rales CV: Regular rate and rhythm, no murmur. Peripheral pulses 2+ Abdomen: soft, nondistended, no organomegaly. Generalized diffuse tenderness Lymph: no cervical or axillary LAD Skin: warm and dry. Neuro: A&Ox3, normal mood and affect - Labs CBC & Chem 7: 09/06/21 13:25 09/06/21 13:25 Labs: Abnormal Lab Results - Last 24 Hours (Table) 09/07/21 09/07/21 09/07/21 Range/Units 12:35 17:33 19:30 POC Glucose (mg/dL) 169 H 254 H 258 H (75-99) mg/dL 09/08/21 09/08/21 Range/Units 07:34 11:42 POC Glucose (mg/dL) 210 H 145 H (75-99) mg/dL Microbiology - Last 24 Hours (Table) 09/06/21 19:59 Blood Culture - Preliminary Blood No Growth after 24 hours 09/06/21 19:59 Blood Culture - Preliminary Blood No Growth after 24 hours 09/06/21 18:07 Urine Culture - Final Urine,Clean Catch Assessment and Plan Assessment: Right flank pain, history of chronic cystitis, multiple drug ALLERGIES, urine culture negative. Adrenal insufficiency Diabetes mellitus type 2, with insulin pump Migraines, hx of. Plan: Continue on current medication regime ,monitoring and symptomatic treatment. IV antibiotics as per infectious disease. Migraine cocktail/magnesium/Tylenol ordered. Discussed pain management with patient, Weaning of Dilaudid in progress, continue on [place]. The impression and plan of care has been dictated as directed. : I performed a history and examination of this patient, discussed the same with the dictator. I agree with the dictator's note ,documented as a scribe. Any additional findings or plans will be noted.
[2021-09-08] MEDS: CHOLESTYRAMINE (WITH SUGAR) 4 GM PACKET PO SCH (17:09)
[2021-09-08 17:10] LABS: Glucose,Whole Blood 239 mg/dL (75-99)
[2021-09-08 20:29] LABS: Glucose,Whole Blood 226 mg/dL (75-99)
[2021-09-08] MEDS: ESCITALOPRAM 10 MG TAB PO SCH (20:45)
[2021-09-08] MEDS: ATORVASTATIN 10 MG TAB PO SCH (20:45)
[2021-09-08] MEDS: METOPROLOL SUCCINATE (ER) 100 MG TAB.ER.24H PO SCH (20:45)
[2021-09-08] MEDS: Insulin Aspart (For Pump) 100 UNIT/ML VIAL SQ-PUMP SCH (22:13)
--- NOTE | 2021-09-08 22:42 | P.PN ---
Subjective Progress Note Date: 09/08/21 Principal diagnosis: Recurrent UTI and diarrhea Patient is a 70-year-old female with a past medical history significant for recurrent urinary tract infection recently and he completed a course of antibiotic for UTI presenting back to the hospital with acute nausea vomiting diarrhea and flank pain, patient did have mildly positive UA and stool for C. diff is negative. On today's evaluation that is 09/08/2021, patient denies having any fever or any chills, still complaining of nausea but no vomiting and still having diarrhea but no blood or mucus in the stool abdominal pain aside decreased intensity with chest pain shortness of breath or cough Objective - Vital Signs Vital signs: Vital Signs Temp 98.2 F 09/08/21 07:38 Pulse 93 09/08/21 07:38 Resp 16 09/08/21 07:38 BP 185/90 09/08/21 07:38 Pulse Ox 100 09/08/21 07:38 Intake & Output 09/07/21 09/08/21 09/08/21 18:59 06:59 18:59 Intake Total 120 Output Total 0 Balance 0 120 Intake: Oral 120 Output: Emesis 0 Other: Voiding Method Toilet Toilet Toilet Diaper Diaper Diaper # Voids 3 # Bowel Movements 0 - Exam GENERAL DESCRIPTION: An elderly female lying in bed in no distress RESPIRATORY SYSTEM: Unlabored breathing , decreased breath sounds at bases HEART: S1 S2 regular rate and rhythm , ABDOMEN: Soft , no tenderness EXTREMITIES: No edema feet - Labs CBC & Chem 7: 09/06/21 13:25 09/06/21 13:25 Labs: Abnormal Lab Results - Last 24 Hours (Table) 09/07/21 09/07/21 09/07/21 Range/Units 12:35 17:33 19:30 POC Glucose (mg/dL) 169 H 254 H 258 H (75-99) mg/dL 09/08/21 09/08/21 Range/Units 07:34 11:42 POC Glucose (mg/dL) 210 H 145 H (75-99) mg/dL Microbiology - Last 24 Hours (Table) 09/06/21 19:59 Blood Culture - Preliminary Blood No Growth after 24 hours 09/06/21 19:59 Blood Culture - Preliminary Blood No Growth after 24 hours 09/06/21 18:07 Urine Culture - Final Urine,Clean Catch Assessment and Plan (1) UTI (urinary tract infection) Current Visit: Yes Status: Acute Code(s): N39.0 - URINARY TRACT INFECTION, SITE NOT SPECIFIED SNOMED Code(s): 95603598 Plan: 1patient presented to hospital with acute nausea vomiting diarrhea and right flank pain in this patient who did have a history of recurrent UTI ultrasound did show some cyst and nonobstructive calculi could be responsible for these recurrent UTIs, patient CT abdominal pelvis did not show evidence of colitis and stool for C. difficile is negative. 2continue the patient on Invanz 1 g daily while waiting for the culture to finalize. 3gentle IV fluid, we will add Questran for symptomatic relief Repeat integumentary markers with a.m. lab Time with Patient: Less than 30
[2021-09-09] MEDS: HYDROmorphone 0.5 MG/0.5 ML SYRINGE IVP PRN ×4 (03:48→17:55)
[2021-09-09 07:33] LABS: Glucose,Whole Blood 252 mg/dL (75-99)
[2021-09-09] MEDS: SUCRALFATE 1 GM TAB PO SCH ×3 (08:05→16:59)
[2021-09-09] MEDS: ASPIRIN 81 MG PO SCH (08:06)
[2021-09-09] MEDS: busPIRone HCl 5 MG TAB PO SCH ×2 (08:06→20:19)
[2021-09-09] MEDS: CHOLECALCIFEROL 25 MCG (1000 IU) TABLET PO SCH (08:06)
[2021-09-09] MEDS: GABAPENTIN 100 MG CAP PO SCH ×3 (08:06→20:19)
[2021-09-09] MEDS: PANTOPRAZOLE 40 MG TABLET PO SCH (08:06)
[2021-09-09] MEDS: lisinopriL 20 MG TAB PO SCH (08:06)
[2021-09-09] MEDS: MAGNESIUM OXIDE 400 MG TAB PO SCH (08:06)
[2021-09-09] MEDS: methylPREDNISolone SOD SUCCI 40 MG/ML 1 ML VIAL IVP SCH ×3 (08:07→23:46)
[2021-09-09] MEDS: INSULIN ASPART (NovoLOG) 100 UNIT/ML VIAL SQ SCH ×4 (08:07→21:09)
[2021-09-09] MEDS: BRIMONIDINE TARTRATE 0.2% DROPS 5 ML BTL RIGHT EYE SCH ×2 (08:08→20:19)
[2021-09-09] MEDS: ERTAPENEM 1 GM in SODIUM CHLORIDE 0.9% 50 ML IVPB SCH (08:09)
[2021-09-09] MEDS: SPIRONOLACTONE 25 MG TAB PO SCH (08:28)
[2021-09-09 09:12] LABS: Basophils # (A) 0.01 X 10*3/uL (0.00-0.10); Basophils % (A) 0.1 %; Eosinophils # (A) 0 X 10*3/uL (0.04-0.35); Eosinophils % (A) 0 %; HCT 37.3 % (37.2-46.3); HGB 11.8 g/dL (12.0-15.0); Immature Grans, Automated 0.6 %; Lymphocytes # (A) 0.66 X 10*3/uL (0.90-5.00); Lymphocytes % (A) 6.2 %; MCHC 31.6 g/dL (32.0-37.0); MCV 91.6 fL (80.0-97.0); Mean Platelet Volume 10.6 fL (9.5-12.2); Monocytes # (A) 0.38 X 10*3/uL (0.20-1.00); Monocytes % (A) 3.6 %; NRBC Per 100 WBC 0 /100 WBCS (0.0-0.0); Neutrophils # (A) 9.52 X 10*3/uL (1.80-7.70); Neutrophils % (A) 89.5 %; Platelet Count 244 X 10*3/uL (140-440); RBC 4.07 X 10*6/uL (4.10-5.20); WBC 10.63 X 10*3/uL (4.50-10.00)
[2021-09-09 09:30] LABS: Anion Gap 11.8 mmol/L (10.00-18.00); BUN/Creat Ratio 28.14 Ratio (12.00-20.00); Blood Urea Nitrogen 19.7 mg/dL (9.0-27.0); C Reactive Protein 2.6 mg/dL (0.00-0.80); Calcium 8.3 mg/dL (8.7-10.3); Carbon Dioxide 19.2 mmol/L (20.0-27.5); Non-African American GFR(CKD) 87.2 (60.0-200.0); Potassium 4.2 mmol/L (3.5-5.5)
[2021-09-09 12:01] LABS: Glucose,Whole Blood 157 mg/dL (75-99)
[2021-09-09] MEDS: CHOLESTYRAMINE (WITH SUGAR) 4 GM PACKET PO SCH ×2 (12:02→16:59)
--- NOTE | 2021-09-09 12:20 | P.PN ---
Subjective Progress Note Date: 09/09/21 Melissa Pena is a 70 yo F with PMH of chronic cystitis with history of MDR bacteria, on keflex prophylactically, adrenal insufficency, T2DM, migraine, chronic pain who presented to the ED complaining of chills, weakness and general malaise. She states that last week she developed diarrhea which has continued since then and she has become progressively more weak. She also complains of poor appetite, nausea and worsening of her chronic flank pain. She denies fevers, chest pain, shortness of breath. On presentation vitals stable, WBC 11.9, UA with positive LE. C diff negative. 08/11/2021 continues to have right flank pain, decreased appetite, migraine headache. Reports nausea, no emesis since yesterday morning. Afebrile. C. diff negative. Maintained on gentle IV fluid hydration, IV steroids, Invanz. Blood sugars fairly controlled /insulin pump .Urine culture reporting no growth. 08/12/2021 reports migraine cocktail worked well for her, currently without headache. Continues on Invanz as per ID, urine culture reported no growth after 18 hours, preliminary blood cultures report no growth after 48 hours. Right flank pain unchanged. Positive nausea , no emesis. Diet intake fair.Diarrhea persists, Questran initiated yesterday. Maintained on IV fluid hydration. Slept well. Denies fever or chills. Objective - Vital Signs Vital signs: Vital Signs Temp 98.3 F 09/09/21 08:00 Pulse 62 09/09/21 08:00 Resp 18 09/09/21 08:00 BP 174/85 09/09/21 08:00 Pulse Ox 94 L 09/09/21 08:00 Intake & Output 09/08/21 09/09/21 09/09/21 18:59 06:59 18:59 Intake Total 240 Balance 240 Intake: Oral 240 Other: Voiding Method Toilet Toilet Toilet Diaper # Voids 2 2 - Labs CBC & Chem 7: 09/09/21 06:32 09/09/21 06:32 Labs: Abnormal Lab Results - Last 24 Hours (Table) 09/08/21 09/08/21 09/09/21 Range/Units 16:56 20:27 06:32 WBC 10.63 H (4.50-10.00) X 10*3/uL RBC 4.07 L (4.10-5.20) X 10*6/uL Hgb 11.8 L (12.0-15.0) g/dL MCHC 31.6 L (32.0-37.0) g/dL Immature Gran # 0.06 H (0.00-0.04) X 10*3/uL Neutrophils # 9.52 H (1.80-7.70) X 10*3/uL Lymphocytes # 0.66 L (0.90-5.00) X 10*3/uL Eosinophils # 0 L (0.04-0.35) X 10*3/uL Carbon Dioxide (20.0-27.5) mmol/L BUN/Creatinine Ratio (12.00-20.00) Ratio Glucose (70-110) mg/dL POC Glucose (mg/dL) 239 H 226 H (75-99) mg/dL Calcium (8.7-10.3) mg/dL C-Reactive Protein (0.00-0.80) mg/dL 09/09/21 09/09/21 09/09/21 Range/Units 06:32 07:31 11:59 WBC (4.50-10.00) X 10*3/uL RBC (4.10-5.20) X 10*6/uL Hgb (12.0-15.0) g/dL MCHC (32.0-37.0) g/dL Immature Gran # (0.00-0.04) X 10*3/uL Neutrophils # (1.80-7.70) X 10*3/uL Lymphocytes # (0.90-5.00) X 10*3/uL Eosinophils # (0.04-0.35) X 10*3/uL Carbon Dioxide 19.2 L (20.0-27.5) mmol/L BUN/Creatinine Ratio 28.14 H (12.00-20.00) Ratio Glucose 274 H (70-110) mg/dL POC Glucose (mg/dL) 252 H 157 H (75-99) mg/dL Calcium 8.3 L (8.7-10.3) mg/dL C-Reactive Protein 2.60 H (0.00-0.80) mg/dL Microbiology - Last 24 Hours (Table) 09/06/21 19:59 Blood Culture - Preliminary Blood No Growth after 48 hours 09/06/21 19:59 Blood Culture - Preliminary Blood No Growth after 48 hours Assessment and Plan Assessment: Right flank pain, history of chronic cystitis, multiple drug ALLERGIES, urine culture negative. Adrenal insufficiency Diabetes mellitus type 2, with insulin pump Migraines, hx of. Plan: Continue on current medication regime ,monitoring and symptomatic treatment. Maintain IV fluid hydration, Questran, Invanz. Continue weaning of Dilaudid/continue on [place]. Discharge planning in progress pending final DC recommendations and clearance per infectious disease. The impression and plan of care has been dictated as directed. : I performed a history and examination of this patient, discussed the same with the dictator. I agree with the dictator's note ,documented as a scribe. Any additional findings or plans will be noted.
[2021-09-09] MEDS: INSULIN DETEMIR (LEVEMIR) 100 UNIT/ML SYR SQ SCH (13:09)
[2021-09-09] MEDS: HYDROcodone/APAP 10-325MG 1 EACH TAB PO PRN ×2 (15:08→21:09)
[2021-09-09 17:00] LABS: Glucose,Whole Blood 256 mg/dL (75-99)
[2021-09-09] MEDS: SODIUM CHLORIDE 0.9% 1,000 ML IV SCH (17:00)
[2021-09-09] MEDS: METOPROLOL SUCCINATE (ER) 100 MG TAB.ER.24H PO SCH (20:18)
[2021-09-09] MEDS: ESCITALOPRAM 10 MG TAB PO SCH (20:19)
[2021-09-09] MEDS: ATORVASTATIN 10 MG TAB PO SCH (20:19)
[2021-09-09] MEDS: Insulin Aspart (For Pump) 100 UNIT/ML VIAL SQ-PUMP SCH (20:19)
[2021-09-09 20:23] LABS: Glucose,Whole Blood 194 mg/dL (75-99)
--- NOTE | 2021-09-09 22:58 | P.PN ---
Subjective Progress Note Date: 09/09/21 Principal diagnosis: Recurrent UTI and diarrhea Patient is a 70-year-old female with a past medical history significant for recurrent urinary tract infection recently and he completed a course of antibiotic for UTI presenting back to the hospital with acute nausea vomiting diarrhea and flank pain, patient did have mildly positive UA and stool for C. diff is negative. On today's evaluation that is 09/09/2021, patient remains to be afebrile, the patient also has improved however still complaining of diarrhea but no blood or mucus in the stool abdominal pain has decreased intensity, the patient denies chest pain shortness of breath or cough Objective - Vital Signs Vital signs: Vital Signs Temp 98.3 F 09/09/21 08:00 Pulse 62 09/09/21 08:00 Resp 18 09/09/21 08:00 BP 174/85 09/09/21 08:00 Pulse Ox 94 L 09/09/21 08:00 Intake & Output 09/08/21 09/09/21 09/09/21 18:59 06:59 18:59 Intake Total 240 Balance 240 Intake: Oral 240 Other: Voiding Method Toilet Toilet Toilet Diaper # Voids 2 2 - Exam GENERAL DESCRIPTION: An elderly female lying in bed in no distress RESPIRATORY SYSTEM: Unlabored breathing , decreased breath sounds at bases HEART: S1 S2 regular rate and rhythm , ABDOMEN: Soft , no tenderness EXTREMITIES: No edema feet - Labs CBC & Chem 7: 09/09/21 06:32 09/09/21 06:32 Labs: Abnormal Lab Results - Last 24 Hours (Table) 09/08/21 09/08/21 09/08/21 Range/Units 11:42 16:56 20:27 WBC (4.50-10.00) X 10*3/uL RBC (4.10-5.20) X 10*6/uL Hgb (12.0-15.0) g/dL MCHC (32.0-37.0) g/dL Immature Gran # (0.00-0.04) X 10*3/uL Neutrophils # (1.80-7.70) X 10*3/uL Lymphocytes # (0.90-5.00) X 10*3/uL Eosinophils # (0.04-0.35) X 10*3/uL Carbon Dioxide (20.0-27.5) mmol/L BUN/Creatinine Ratio (12.00-20.00) Ratio Glucose (70-110) mg/dL POC Glucose (mg/dL) 145 H 239 H 226 H (75-99) mg/dL Calcium (8.7-10.3) mg/dL C-Reactive Protein (0.00-0.80) mg/dL 09/09/21 09/09/21 09/09/21 Range/Units 06:32 06:32 07:31 WBC 10.63 H (4.50-10.00) X 10*3/uL RBC 4.07 L (4.10-5.20) X 10*6/uL Hgb 11.8 L (12.0-15.0) g/dL MCHC 31.6 L (32.0-37.0) g/dL Immature Gran # 0.06 H (0.00-0.04) X 10*3/uL Neutrophils # 9.52 H (1.80-7.70) X 10*3/uL Lymphocytes # 0.66 L (0.90-5.00) X 10*3/uL Eosinophils # 0 L (0.04-0.35) X 10*3/uL Carbon Dioxide 19.2 L (20.0-27.5) mmol/L BUN/Creatinine Ratio 28.14 H (12.00-20.00) Ratio Glucose 274 H (70-110) mg/dL POC Glucose (mg/dL) 252 H (75-99) mg/dL Calcium 8.3 L (8.7-10.3) mg/dL C-Reactive Protein 2.60 H (0.00-0.80) mg/dL Microbiology - Last 24 Hours (Table) 09/06/21 19:59 Blood Culture - Preliminary Blood No Growth after 48 hours 09/06/21 19:59 Blood Culture - Preliminary Blood No Growth after 48 hours Assessment and Plan (1) UTI (urinary tract infection) Current Visit: Yes Status: Acute Code(s): N39.0 - URINARY TRACT INFECTION, SITE NOT SPECIFIED SNOMED Code(s): 00237147 Plan: 1patient presented to hospital with acute nausea vomiting diarrhea and right flank pain in this patient who did have a history of recurrent UTI ultrasound did show some cyst and nonobstructive calculi could be responsible for these recurrent UTIs, patient CT abdominal pelvis did not show evidence of colitis and stool for C. difficile is negative. 2patient urine cultures came back negative now with persistent diarrhea antibiotic may be contributing to it as we'll discontinue Invanz 3gentle IV fluid, we will add Questran for symptomatic relief Time with Patient: Less than 30
[2021-09-10] MEDS: HYDROmorphone 0.5 MG/0.5 ML SYRINGE IVP PRN ×2 (00:59→07:50)
[2021-09-10] MEDS: HYDROcodone/APAP 10-325MG 1 EACH TAB PO PRN ×2 (04:23→12:26)
[2021-09-10] MEDS: SODIUM CHLORIDE 0.9% 1,000 ML IV SCH (05:31)
[2021-09-10 07:31] LABS: Glucose,Whole Blood 193 mg/dL (75-99)
[2021-09-10] MEDS: lisinopriL 20 MG TAB PO SCH (07:46)
[2021-09-10] MEDS: CHOLECALCIFEROL 25 MCG (1000 IU) TABLET PO SCH (07:46)
[2021-09-10] MEDS: ASPIRIN 81 MG PO SCH (07:47)
[2021-09-10] MEDS: SUCRALFATE 1 GM TAB PO SCH (07:47)
[2021-09-10] MEDS: methylPREDNISolone SOD SUCCI 40 MG/ML 1 ML VIAL IVP SCH (07:47)
[2021-09-10] MEDS: MAGNESIUM OXIDE 400 MG TAB PO SCH (07:47)
[2021-09-10] MEDS: busPIRone HCl 5 MG TAB PO SCH (07:47)
[2021-09-10] MEDS: GABAPENTIN 100 MG CAP PO SCH (07:47)
[2021-09-10] MEDS: INSULIN DETEMIR (LEVEMIR) 100 UNIT/ML SYR SQ SCH (07:48)
[2021-09-10] MEDS: PANTOPRAZOLE 40 MG TABLET PO SCH (07:48)
[2021-09-10] MEDS: BRIMONIDINE TARTRATE 0.2% DROPS 5 ML BTL RIGHT EYE SCH (07:48)
[2021-09-10] MEDS: INSULIN ASPART (NovoLOG) 100 UNIT/ML VIAL SQ SCH (07:54)
[2021-09-10 08:16] VITALS: BP 171/85; PULSE 61; RESP 20; TEMP 97.9
[2021-09-10] MEDS ORDERED: LOPERAMIDE 2 MG CAP PO STA (09:45)
[2021-09-10] MEDS ORDERED: LOPERAMIDE 2 MG CAP PO PRN (09:45)
[2021-09-10] MEDS: SPIRONOLACTONE 25 MG TAB PO SCH (09:48)
[2021-09-10] MEDS ORDERED: PSYLLIUM HUSK 100% 6 GM PACKET PO SCH (10:00)
[2021-09-10] MEDS ORDERED: LACTOBACILLUS ACIDOPH & BULGAR 1 EACH PACKET PO SCH (10:00)
--- NOTE | 2021-09-10 11:12 | P.DS ---
Providers Date of admission: 09/07/21 13:19 Expected date of discharge: 09/10/21 Attending physician: Andrew Gonsales MD Consults: 09/06/21 19:39 Consult Physician Routine Consulting Provider: Chalino Osman Consult Reason/Comments: UTI, history of ESBL Do you want consulting provider notified?: Yes Primary care physician: Andrew Gonsales MD Hospital Course: Final Diagnoses: Right flank pain, history of chronic cystitis, multiple drug ALLERGIES, urine culture negative. Adrenal insufficiency Diabetes mellitus type 2, with insulin pump Migraines, hx of. Hospital course:Melissa Pena is a 70 yo F with PMH of chronic cystitis with history of MDR bacteria, on keflex prophylactically, adrenal insufficency, T2DM, migraine, chronic pain who presented to the ED complaining of chills, weakness and general malaise. She states that last week she developed diarrhea which has continued since then and she has become progressively more weak. She also complains of poor appetite, nausea and worsening of her chronic flank pain. She denies fevers, chest pain, shortness of breath. On presentation vitals stable, WBC 11.9, UA with positive LE. C diff negative. 08/11/2021 continues to have right flank pain, decreased appetite, migraine headache. Reports nausea, no emesis since yesterday morning. Afebrile. C. diff negative. Maintained on gentle IV fluid hydration, IV steroids, Invanz. Blood sugars fairly controlled /insulin pump .Urine culture reporting no growth. 08/12/2021 reports migraine cocktail worked well for her, currently without headache. Continues on Invanz as per ID, urine culture reported no growth after 18 hours, preliminary blood cultures report no growth after 48 hours. Right flank pain unchanged. Positive nausea , no emesis. Diet intake fair.Diarrhea persists, Questran initiated yesterday. Maintained on IV fluid hydration. Slept well. Denies fever or chills. Antibiotics discontinued as per ID secondary to negative cultures. Patient c ontinues to complain of uncontrolled diarrhea. Maintained on IV fluids. Patient informed of discharge plan this afternoon. Imodium, Metamucil, lactobacillus will be added. Flank pain improved. Denies chest pain, palpitations or shortness of breath. Denies lightheadedness dizziness or focal deficits. Patient will be discharged home this afternoon in a stable condition with guarded prognosis. The impression and plan of care has been dictated as directed. : I performed a history and examination of this patient, discussed the same with the dictator. I agree with the dictator's note ,documented as a scribe. Any additional findings or plans will be noted. Patient Condition at Discharge: Stable Plan - Discharge Summary New Discharge Prescriptions: New Loperamide [Imodium] 2 mg PO QID PRN cap PRN Reason: Diarrhea Psyllium Husk 100% [Metamucil Packet] 6 gm PO DAILY packet Lactobacillus Acidoph & Bulgar [Lactinex] 1 each PO TID packet Continue Cholecalciferol [Vitamin D3 (25 Mcg = 1000 Iu)] 25 mcg PO DAILY Meclizine [Antivert] 25 mg PO QID PRN PRN Reason: Vertigo Aspirin 81 mg PO DAILY #0 Ferrous Sulfate [Iron (65 MG Elemental)] 325 mg PO DAILY Vitamin B-Complex Drops 1 ml PO BID Thiamine [Vitamin B-1] 100 mg PO DAILY Folic Acid 0.4 mg PO DAILY L.acidoph,Paracasei, B.lactis [Probiotic] 2 cap PO BID Melatonin 5 mg PO HS PRN PRN Reason: Insomnia Potassium 99 mg PO DAILY Magnesium Oxide [Mag-Ox] 400 mg PO DAILY Gabapentin [Neurontin] 100 mg PO TID #9 cap Spironolactone 50 mg PO DAILY C,E,Zinc,Copper 11/Lkyta0u/Lut [Ocuvite Adult 50 Plus Softgel] 1 cap PO DAILY Cyanocobalamin (Vitamin B-12) [Vitamin B-12] 1,000 mcg PO DAILY Vitamin E 400 unit PO DAILY Brimonidine Tartrate [Alphagan P 0.2% Ophth Soln] 1 drop RIGHT EYE BID Pantoprazole Sodium [Protonix] 40 mg PO DAILY Hydrocortisone [Cortef] 5 mg PO HS #0 Hydrocortisone [Cortef] 10 mg PO DAILY@1200 #0 Hydrocortisone [Cortef] 15 mg PO DAILY #0 Liquid Multi Vitamin 30 ml PO DAILY Butalb/APAP/Caff 50-325-40Mg [Fioricet 50-325-40] 1 tab PO TID PRN #9 tab PRN Reason: Migraine Headache HYDROcodone/APAP 10-325MG [[place] 10-325] 1 tab PO QID PRN #12 tab PRN Reason: Pain Sucralfate [Carafate] 1 gm PO AC-TID Glucagon [Gvoke Pfs 1-Pack Syringe] 1 mg SQ ONCE PRN PRN Reason: severe hypoglycemia busPIRone HCl [Buspar] 5 mg PO BID Nystatin 1 applic TOPICAL BID PRN PRN Reason: Skin Irritation Insulin Aspart (For Pump) [NovoLOG (For Pump)] 0.01 unit SQ-PUMP CONTINUOUS Cranberry Fruit Extract [Cranberry] 1,500 mg PO BID Escitalopram [Lexapro] 10 mg PO HS lisinopriL 40 mg PO DAILY Ondansetron [Zofran] 4 mg PO Q6H PRN PRN Reason: Nausea Promethazine HCl [Phenergan Syrup] 6.25 mg PO Q6H PRN PRN Reason: Nausea Rosuvastatin Calcium [Crestor] 5 mg PO HS Cephalexin [Keflex] 250 mg PO HS #0 Metoprolol Succinate [Toprol XL] 100 mg PO HS Cholestyramine (with Sugar) [Cholestyramine Packet] 4 gm PO BID PRN PRN Reason: Diarrhea Discharge Medication List Cholecalciferol [Vitamin D3 (25 Mcg = 1000 Iu)] 25 mcg PO DAILY 12/01/14 [History] Meclizine [Antivert] 25 mg PO QID PRN 11/26/17 [History] Aspirin 81 mg PO DAILY #0 07/02/18 [Rx] Ferrous Sulfate [Iron (65 MG Elemental)] 325 mg PO DAILY 10/08/18 [History] Folic Acid 0.4 mg PO DAILY 10/08/18 [History] L.acidoph,Paracasei, B.lactis [Probiotic] 2 cap PO BID 10/08/18 [History] Melatonin 5 mg PO HS PRN 10/08/18 [History] Potassium 99 mg PO DAILY 10/08/18 [History] Thiamine [Vitamin B-1] 100 mg PO DAILY 10/08/18 [History] Vitamin B-Complex Drops 1 ml PO BID 10/08/18 [History] Magnesium Oxide [Mag-Ox] 400 mg PO DAILY 12/06/19 [History] Gabapentin [Neurontin] 100 mg PO TID #9 cap 03/24/20 [Rx] C,E,Zinc,Copper 11/Ctexl6b/Lut [Ocuvite Adult 50 Plus Softgel] 1 cap PO DAILY 06/25/20 [History] Cyanocobalamin (Vitamin B-12) [Vitamin B-12] 1,000 mcg PO DAILY 06/25/20 [History] Spironolactone 50 mg PO DAILY 06/25/20 [History] Vitamin E 400 unit PO DAILY 06/25/20 [History] Brimonidine Tartrate [Alphagan P 0.2% Ophth Soln] 1 drop RIGHT EYE BID 11/26/20 [History] Glucagon [Gvoke Pfs 1-Pack Syringe] 1 mg SQ ONCE PRN 11/26/20 [History] Pantoprazole Sodium [Protonix] 40 mg PO DAILY 11/26/20 [History] Hydrocortisone [Cortef] 5 mg PO HS #0 12/16/20 [Rx] Hydrocortisone [Cortef] 10 mg PO DAILY@1200 #0 12/16/20 [Rx] Hydrocortisone [Cortef] 15 mg PO DAILY #0 12/16/20 [Rx] busPIRone HCl [Buspar] 5 mg PO BID 02/04/21 [History] Nystatin 1 applic TOPICAL BID PRN 02/17/21 [History] Insulin Aspart (For Pump) [NovoLOG (For Pump)] 0.01 unit SQ-PUMP CONTINUOUS 03/03/21 [History] Cranberry Fruit Extract [Cranberry] 1,500 mg PO BID 08/15/21 [History] Escitalopram [Lexapro] 10 mg PO HS 08/15/21 [History] Liquid Multi Vitamin 30 ml PO DAILY 08/15/21 [History] Ondansetron [Zofran] 4 mg PO Q6H PRN 08/15/21 [History] Promethazine HCl [Phenergan Syrup] 6.25 mg PO Q6H PRN 08/15/21 [History] Rosuvastatin Calcium [Crestor] 5 mg PO HS 08/15/21 [History] lisinopriL 40 mg PO DAILY 08/15/21 [History] Butalb/APAP/Caff 50-325-40Mg [Fioricet 50-325-40] 1 tab PO TID PRN #9 tab 08/20/21 [Rx] Cephalexin [Keflex] 250 mg PO HS #0 08/20/21 [Rx] HYDROcodone/APAP 10-325MG [[place] 10-325] 1 tab PO QID PRN #12 tab 08/20/21 [Rx] Cholestyramine (with Sugar) [Cholestyramine Packet] 4 gm PO BID PRN 09/06/21 [History] Metoprolol Succinate [Toprol XL] 100 mg PO HS 09/06/21 [History] Sucralfate [Carafate] 1 gm PO AC-TID 09/06/21 [History] Lactobacillus Acidoph & Bulgar [Lactinex] 1 each PO TID packet 09/10/21 [Rx] Loperamide [Imodium] 2 mg PO QID PRN cap 09/10/21 [Rx] Psyllium Husk 100% [Metamucil Packet] 6 gm PO DAILY packet 09/10/21 [Rx] Follow up Appointment(s)/Referral(s): Andrew Gonsales MD [Primary Care Provider] - 1-2 days [facility], [NON-STAFF] - 1 Week [facility]fusion [NON-STAFF] - 1 Week
[2021-09-10] MEDS: CHOLESTYRAMINE (WITH SUGAR) 4 GM PACKET PO SCH (11:35)
[2021-09-10 11:53] LABS: Glucose,Whole Blood 203 mg/dL (75-99)
== END 2021-09-10 13:47 | disposition home or self-care (01) | DRG 690 ==
LOC: EC 10:27 → 6NMEDSUR 19:48 → OBSVTOIN 09-07 13:19
PROVIDERS: ADMIT Family Medicine; ATTEND Family Medicine
DX: N30.20 Other chronic cystitis without hematuria (principal); E27.1 Primary adrenocortical insufficiency; R10.9 Unspecified abdominal pain; E11.9 Type 2 diabetes mellitus without complications; E78.5 Hyperlipidemia, unspecified; F32.A Depression, unspecified; G43.909 Migraine, unspecified, not intractable, without status migrainosus; G89.29 Other chronic pain; I10 Essential (primary) hypertension; J42 Unspecified chronic bronchitis; M79.7 Fibromyalgia; Z79.4 Long term (current) use of insulin; Z79.52 Long term (current) use of systemic steroids; Z79.82 Long term (current) use of aspirin; Z79.899 Other long term (current) drug therapy; Z80.49 Family history of malignant neoplasm of other genital organs; Z82.3 Family history of stroke; Z82.49 Family history of ischemic heart disease and other diseases of the circulatory system; Z83.3 Family history of diabetes mellitus; Z86.19 Personal history of other infectious and parasitic diseases; Z87.440 Personal history of urinary (tract) infections; Z96.41 Presence of insulin pump (external) (internal); Z87.442 Personal history of urinary calculi; Z90.710 Acquired absence of both cervix and uterus; Z88.1 Allergy status to other antibiotic agents; Z88.5 Allergy status to narcotic agent; Z88.0 Allergy status to penicillin; Z88.8 Allergy status to other drugs, medicaments and biological substances
CPT/HCPCS: 36415; 74176; 80048; 80053; 81001; 83605; 83690; 84145; 85025; 85610; 85730; 86140; 87040; 87086; 87324; 96361; 96374; 96375; 96376; 99285

== ENCOUNTER 2021-09-19 03:08 | Emergency (ER) | payer MEDICARE, BC ==
[2021-09-19 03:15] LABS: Glucose,Whole Blood 81 mg/dL (75-99)
[2021-09-19 03:18] VITALS: TEMP 98
[2021-09-19] MEDS ORDERED: SODIUM CHLORIDE 0.9% 500 ML 500 ML IV STA (03:31)
[2021-09-19] MEDS ORDERED: SODIUM CHLORIDE 0.9% 1,000 ML IV STA (03:31)
--- NOTE | 2021-09-19 03:37 | ED ---
Weakness HPI - General Chief complaint: Weakness Stated complaint: Fall Time Seen by Provider: 09/19/21 03:15 Source: patient, EMS, RN notes reviewed, old records reviewed Mode of arrival: EMS Limitations: no limitations - History of Present Illness Initial comments: This is a 71-year-old female who is a mildly poor story here in the emergency 5. Patient presents today for evaluation of increased weakness possible low blood sugar recent fall with generalized aches and pains. Patient has not been feeling well, increasingly weak no fever. No travel show sick contacts no change in medications. MD Complaint: generalized weakness -: minutes(s) Location: generalized Severity: moderate Severity scale (1-10): 7 Quality: numbness Consistency: constant Improves with: none Worsens with: none Context: recent illness, history of similar Associated Symptoms: diaphoresis, nausea/vomiting - Related Data Home Medications Medication Instructions Recorded Confirmed Meclizine [Antivert] 25 mg PO QID PRN 11/26/17 09/21/21 Ferrous Sulfate [Iron (65 MG 325 mg PO DAILY 10/08/18 09/21/21 Elemental)] Folic Acid 0.4 mg PO DAILY 10/08/18 09/21/21 L.acidoph,Paracasei, B.lactis 2 cap PO BID 10/08/18 09/21/21 [Probiotic] Melatonin 5 mg PO HS PRN 10/08/18 09/21/21 Potassium 99 mg PO DAILY 10/08/18 09/21/21 Thiamine [Vitamin B-1] 100 mg PO DAILY 10/08/18 09/21/21 Vitamin B-Complex Drops 1 ml PO BID 10/08/18 09/21/21 Magnesium Oxide [Mag-Ox] 400 mg PO DAILY 12/06/19 09/21/21 C,E,Zinc,Copper 11/Dtyiw3d/Lut 1 cap PO DAILY 06/25/20 09/21/21 [Ocuvite Adult 50 Plus Softgel] Cyanocobalamin (Vitamin B-12) 1,000 mcg PO DAILY 06/25/20 09/21/21 [Vitamin B-12] Spironolactone 50 mg PO DAILY 06/25/20 09/21/21 Vitamin E 400 unit PO DAILY 06/25/20 09/21/21 Brimonidine Tartrate [Alphagan P 1 drop RIGHT EYE BID 11/26/20 09/21/21 0.2% Ophth Soln] Glucagon [Gvoke Pfs 1-Pack Syringe] 1 mg SQ ONCE PRN 11/26/20 09/21/21 Pantoprazole Sodium [Protonix] 40 mg PO DAILY 11/26/20 09/21/21 busPIRone HCl [Buspar] 5 mg PO BID 02/04/21 09/21/21 Nystatin 1 applic TOPICAL BID PRN 02/17/21 09/21/21 Insulin Aspart (For Pump) [NovoLOG 0.01 unit SQ-PUMP CONTINUOUS 03/03/21 09/21/21 (For Pump)] Cranberry Fruit Extract [Cranberry] 1,500 mg PO BID 08/15/21 09/21/21 Escitalopram [Lexapro] 10 mg PO HS 08/15/21 09/21/21 Liquid Multi Vitamin 30 ml PO DAILY 08/15/21 09/21/21 Ondansetron [Zofran] 4 mg PO Q6H PRN 08/15/21 09/21/21 Rosuvastatin Calcium [Crestor] 5 mg PO HS 08/15/21 09/21/21 lisinopriL 40 mg PO DAILY 08/15/21 09/21/21 Cholestyramine (with Sugar) 4 gm PO BID PRN 09/06/21 09/21/21 [Cholestyramine Packet] Metoprolol Succinate [Toprol XL] 100 mg PO HS 09/06/21 09/21/21 Sucralfate [Carafate] 1 gm PO AC-TID 09/06/21 09/21/21 Cholecalciferol [Vitamin D3 (25 75 mcg PO DAILY 09/21/21 09/21/21 Mcg = 1000 Iu)] Lactobacillus Acidoph & Bulgar 1 tab PO TID 09/21/21 09/21/21 [Lactinex] Promethazine [Phenergan] 25 mg PO TID PRN 09/21/21 09/21/21 Previous Rx's Medication Instructions Recorded Aspirin 81 mg PO DAILY #0 07/02/18 Gabapentin [Neurontin] 100 mg PO TID #9 cap 03/24/20 Hydrocortisone [Cortef] 5 mg PO HS #0 12/16/20 Hydrocortisone [Cortef] 10 mg PO DAILY@1200 #0 12/16/20 Hydrocortisone [Cortef] 15 mg PO DAILY #0 12/16/20 Butalb/APAP/Caff 50-325-40Mg 1 tab PO TID PRN #9 tab 08/20/21 [Fioricet 50-325-40] Cephalexin [Keflex] 250 mg PO HS #0 08/20/21 HYDROcodone/APAP 10-325MG [[place] 1 tab PO QID PRN #12 tab 08/20/21 10-325] Loperamide [Imodium] 2 mg PO QID PRN cap 09/10/21 Psyllium Husk 100% [Metamucil 6 gm PO DAILY packet 09/10/21 Packet] Ertapenem [INVanz] 1 gm IVPB Q24H 7 Days #7 each 09/25/21 Allergies Allergy/AdvReac Type Severity Reaction Status Date / Time butorphanol tartrate Allergy BLISTERS Verified 09/21/21 18:07 [From Stadol] IN MOUTH ceftriaxone [From Rocephin] Allergy Unknown Verified 09/21/21 18:07 clarithromycin [From Biaxin] Allergy Rash/Hives Verified 09/21/21 18:07 clindamycin Allergy Unknown Verified 09/21/21 18:07 codeine Allergy Rash/Hives Verified 09/21/21 18:07 ergotamine tartrate Allergy Unknown Verified 09/21/21 18:07 [From Cafergot] erythromycin base Allergy RASH, GI Verified 09/21/21 18:07 [From E-Mycin] SYMPTOMS ketorolac tromethamine Allergy Rash/Hives Verified 09/21/21 18:07 [From Toradol] liraglutide [From Victoza] Allergy Rash/Hives Verified 09/21/21 18:07 morphine Allergy Rash/Hives Verified 09/21/21 18:07 Penicillins Allergy Rash/Hives Verified 09/21/21 18:07 on upper body pentazocine lactate Allergy SEVERE Verified 09/21/21 18:07 [From Talwin] BLISTERS IN MOUTH pregabalin [From Lyrica] Allergy Rash/Hives Verified 09/21/21 18:07 propoxyphene HCl Allergy Rash/Hives Verified 09/21/21 18:07 [From Darvon] Sulfa (Sulfonamide Allergy Rash/Hives Verified 09/21/21 18:07 Antibiotics) tramadol Allergy Unknown Verified 09/21/21 18:07 monosodium glutamate [MSG] AdvReac Nausea & Verified 09/21/21 18:07 Vomiting nalbuphine HCl [From Nubain] AdvReac Nausea & Verified 09/21/21 18:07 Vomiting Review of Systems ROS Statement: Those systems with pertinent positive or pertinent negative responses have been documented in the HPI. ROS Other: All systems not noted in ROS Statement are negative. 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, DVT R calf in 1976, cardiac murmur, occipital neuraligia, balance issues-has narrowing of vessels "in the back of my head", vertigo, varicosities, states rt shoulder torn rotator cuff History of Any Multi-Drug Resistant Organisms: ESBL, MRSA, VRE Date of last positivie culture/infection: 11/25/20 ESBL;12/06/19 VRE; 03/10/11 MRSA MDRO Source:: Urine ESBL; Urine-VRE: MRSA 4th Right TOE Past Surgical History: Appendectomy, Back Surgery, Bladder Surgery, Breast Surgery, Cholecystectomy, Heart Catheterization, Hysterectomy, Orthopedic Surgery, Tonsillectomy Additional Past Surgical History / Comment(s): Lumbar fusions, bladder suspension, occipital nerve blocks, 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, R wrist/elbow nerve repair, bone removed R shoulder, 4th toe R foot partial amputation, bilateral feet/bunionectomies, R knee arthroscopies, R orbit decompression with ethmoidectomy and eyelid lift, EGD, colonoscopies, cystocopies, lithotripsy/stents, bilateral breast reduction, bilateral cataract removals, parathyroid surgery - April 2019, pain clinic procedures Past Anesthesia/Blood Transfusion Reactions: No Reported Reaction Additional Past Anesthesia/Blood Transfusion Reaction / Comment(s): never recieved blood Past Psychological History: Depression Smoking Status: Never smoker Past Alcohol Use History: Rare Past Drug Use History: None Reported - Past Family History Father Family Medical History: Coronary Artery Disease (CAD), CVA/TIA, Diabetes Mellitus, Myocardial Infarction (DE), Pneumonia Additional Family Medical History / Comment(s): Father at the age of 78yrs from DE and pneumonia. Mother Family Medical History: Cancer, Congestive Heart Failure (CHF) Additional Family Medical History / Comment(s): Mother had uterine cancer. She recently at the age of 96yrs old from shingles. General Exam General appearance: alert, in no apparent distress Head exam: Present: atraumatic, normocephalic, normal inspection Eye exam: Present: normal appearance, PERRL, EOMI. Absent: scleral icterus, conjunctival injection, periorbital swelling ENT exam: Present: normal exam, mucous membranes moist Neck exam: Present: normal inspection. Absent: tenderness, meningismus, lymphadenopathy Respiratory exam: Present: normal lung sounds bilaterally. Absent: respiratory distress, wheezes, rales, rhonchi, stridor Cardiovascular Exam: Present: regular rate, normal rhythm, normal heart sounds. Absent: systolic murmur, diastolic murmur, rubs, gallop, clicks GI/Abdominal exam: Present: soft, normal bowel sounds. Absent: distended, tenderness, guarding, rebound, rigid Extremities exam: Present: normal inspection, full ROM, normal capillary refill. Absent: tenderness, pedal edema, joint swelling, calf tenderness Back exam: Present: normal inspection Neurological exam: Present: alert, oriented X3, CN II-XII intact Psychiatric exam: Present: normal affect, normal mood Skin exam: Present: warm, dry, intact, normal color. Absent: rash Course Vital Signs 09/19/21 09/19/21 09/19/21 03:14 03:44 05:10 Temperature 98 F Pulse Rate 86 86 80 Respiratory 18 19 18 Rate Blood Pressure 162/111 170/100 132/80 O2 Sat by Pulse 96 99 98 Oximetry 09/19/21 06:39 Temperature Pulse Rate 80 Respiratory 18 Rate Blood Pressure 147/86 O2 Sat by Pulse 98 Oximetry - Reevaluation(s) Reevaluation #1: 09/19/21 06:46 Medical record is reviewed Reevaluation #2: 09/19/21 06:46 Patient has history of similar ER presentation Reevaluation #3: 09/19/21 06:46 Prior urine culture was reviewed, this urine does appear to be still cleaner, microbiology was negative EKG Findings - EKG Comments: EKG Findings:: EKG shows sinus rhythm 84 IA 124 QRS 78 QTc 405 Medical Decision Making - Medical Decision Making 71 female to the emergency department for evaluation of weakness and shakiness, patient is no acute findings here in the emergency department and can be d ischarged home - Lab Data Result diagrams: 09/19/21 03:43 09/19/21 03:43 Lab Results 09/19/21 09/19/21 09/19/21 Range/Units 03:13 03:43 03:43 WBC 9.3 (3.8-10.6) k/uL RBC 4.74 (3.80-5.40) m/uL Hgb 13.7 (11.4-16.0) gm/dL Hct 44.1 (34.0-46.0) % MCV 92.9 (80.0-100.0) fL MCH 29.0 (25.0-35.0) pg MCHC 31.2 (31.0-37.0) g/dL RDW 14.6 (11.5-15.5) % Plt Count 230 (150-450) k/uL MPV 7.8 Neutrophils % Not Reportable Neutrophils % (Manual) 67 % Band Neuts % (Manual) 5 % Lymphocytes % Not Reportable Lymphocytes % (Manual) 20 % Monocytes % Not Reportable Monocytes % (Manual) 7 % Eosinophils % Not Reportable Eosinophils % (Manual) 1 % Basophils % Not Reportable Neutrophils # Not Reportable Neutrophils # (Manual) 6.60 (1.3-7.7) k/uL Lymphocytes # Not Reportable Lymphocytes # (Manual) 1.86 (1.0-4.8) k/uL Monocytes # Not Reportable Monocytes # (Manual) 0.65 (0-1.0) k/uL Eosinophils # Not Reportable Eosinophils # (Manual) 0.09 (0-0.7) k/uL Basophils # Not Reportable Nucleated RBCs 0 (0-0) /100 WBC Manual Slide Review Performed PT 9.9 (9.0-12.0) sec INR 0.9 (<1.2) APTT 19.5 L (22.0-30.0) sec Sodium (137-145) mmol/L Potassium (3.5-5.1) mmol/L Chloride (98-107) mmol/L Carbon Dioxide (22-30) mmol/L Anion Gap mmol/L BUN (7-17) mg/dL Creatinine (0.52-1.04) mg/dL Est GFR (CKD-EPI)AfAm (>60 ml/min/1.73 sqM) Est GFR (CKD-EPI)NonAf (>60 ml/min/1.73 sqM) Glucose (74-99) mg/dL POC Glucose (mg/dL) 81 (75-99) mg/dL POC Glu Recruiting Assistant ID Gema Marcus Calcium (8.4-10.2) mg/dL Phosphorus (2.5-4.5) mg/dL Magnesium (1.6-2.3) mg/dL Total Bilirubin (0.2-1.3) mg/dL AST (14-36) U/L ALT (4-34) U/L Alkaline Phosphatase (38-126) U/L Troponin I (0.000-0.034) ng/mL Total Protein (6.3-8.2) g/dL Albumin (3.5-5.0) g/dL Urine Color Urine Appearance (Clear) Urine pH (5.0-8.0) Ur Specific [place] (1.001-1.035) Urine Protein (Negative) Urine Glucose (UA) (Negative) Urine Ketones (Negative) Urine Blood (Negative) Urine Nitrite (Negative) Urine Bilirubin (Negative) Urine Urobilinogen (<2.0) mg/dL Ur Leukocyte Esterase (Negative) Urine RBC (0-5) /hpf Urine WBC (0-5) /hpf Ur Squamous Epith Cells (0-4) /hpf Urine Bacteria (None) /hpf Hyaline Casts (0-2) /lpf Urine Mucus (None) /hpf 09/19/21 09/19/21 09/19/21 Range/Units 03:43 03:43 05:09 WBC (3.8-10.6) k/uL RBC (3.80-5.40) m/uL Hgb (11.4-16.0) gm/dL Hct (34.0-46.0) % MCV (80.0-100.0) fL MCH (25.0-35.0) pg MCHC (31.0-37.0) g/dL RDW (11.5-15.5) % Plt Count (150-450) k/uL MPV Neutrophils % Neutrophils % (Manual) % Band Neuts % (Manual) % Lymphocytes % Lymphocytes % (Manual) % Monocytes % Monocytes % (Manual) % Eosinophils % Eosinophils % (Manual) % Basophils % Neutrophils # Neutrophils # (Manual) (1.3-7.7) k/uL Lymphocytes # Lymphocytes # (Manual) (1.0-4.8) k/uL Monocytes # Monocytes # (Manual) (0-1.0) k/uL Eosinophils # Eosinophils # (Manual) (0-0.7) k/uL Basophils # Nucleated RBCs (0-0) /100 WBC Manual Slide Review PT (9.0-12.0) sec INR (<1.2) APTT (22.0-30.0) sec Sodium 138 (137-145) mmol/L Potassium 4.0 (3.5-5.1) mmol/L Chloride 100 (98-107) mmol/L Carbon Dioxide 34 H (22-30) mmol/L Anion Gap 4 mmol/L BUN 23 H (7-17) mg/dL Creatinine 0.65 (0.52-1.04) mg/dL Est GFR (CKD-EPI)AfAm >90 (>60 ml/min/1.73 sqM) Est GFR (CKD-EPI)NonAf 89 (>60 ml/min/1.73 sqM) Glucose 86 (74-99) mg/dL POC Glucose (mg/dL) (75-99) mg/dL POC Glu Recruiting Assistant ID Calcium 9.3 (8.4-10.2) mg/dL Phosphorus 5.6 H (2.5-4.5) mg/dL Magnesium 1.7 (1.6-2.3) mg/dL Total Bilirubin 0.7 (0.2-1.3) mg/dL AST 23 (14-36) U/L ALT 19 (4-34) U/L Alkaline Phosphatase 54 (38-126) U/L Troponin I 0.015 (0.000-0.034) ng/mL Total Protein 6.2 L (6.3-8.2) g/dL Albumin 3.9 (3.5-5.0) g/dL Urine Color Yellow Urine Appearance Clear (Clear) Urine pH 6.5 (5.0-8.0) Ur Specific [place] 1.019 (1.001-1.035) Urine Protein Negative (Negative) Urine Glucose (UA) Negative (Negative) Urine Ketones Negative (Negative) Urine Blood Negative (Negative) Urine Nitrite Negative (Negative) Urine Bilirubin Negative (Negative) Urine Urobilinogen <2.0 (<2.0) mg/dL Ur Leukocyte Esterase Small H (Negative) Urine RBC 6 H (0-5) /hpf Urine WBC 16 H (0-5) /hpf Ur Squamous Epith Cells 2 (0-4) /hpf Urine Bacteria Rare H (None) /hpf Hyaline Casts 4 H (0-2) /lpf Urine Mucus Rare H (None) /hpf 09/19/21 Range/Units 07:16 WBC (3.8-10.6) k/uL RBC (3.80-5.40) m/uL Hgb (11.4-16.0) gm/dL Hct (34.0-46.0) % MCV (80.0-100.0) fL MCH (25.0-35.0) pg MCHC (31.0-37.0) g/dL RDW (11.5-15.5) % Plt Count (150-450) k/uL MPV Neutrophils % Neutrophils % (Manual) % Band Neuts % (Manual) % Lymphocytes % Lymphocytes % (Manual) % Monocytes % Monocytes % (Manual) % Eosinophils % Eosinophils % (Manual) % Basophils % Neutrophils # Neutrophils # (Manual) (1.3-7.7) k/uL Lymphocytes # Lymphocytes # (Manual) (1.0-4.8) k/uL Monocytes # Monocytes # (Manual) (0-1.0) k/uL Eosinophils # Eosinophils # (Manual) (0-0.7) k/uL Basophils # Nucleated RBCs (0-0) /100 WBC Manual Slide Review PT (9.0-12.0) sec INR (<1.2) APTT (22.0-30.0) sec Sodium (137-145) mmol/L Potassium (3.5-5.1) mmol/L Chloride (98-107) mmol/L Carbon Dioxide (22-30) mmol/L Anion Gap mmol/L BUN (7-17) mg/dL Creatinine (0.52-1.04) mg/dL Est GFR (CKD-EPI)AfAm (>60 ml/min/1.73 sqM) Est GFR (CKD-EPI)NonAf (>60 ml/min/1.73 sqM) Glucose (74-99) mg/dL POC Glucose (mg/dL) 153 H (75-99) mg/dL POC Glu Recruiting Assistant ID Nadia Markham Calcium (8.4-10.2) mg/dL Phosphorus (2.5-4.5) mg/dL Magnesium (1.6-2.3) mg/dL Total Bilirubin (0.2-1.3) mg/dL AST (14-36) U/L ALT (4-34) U/L Alkaline Phosphatase (38-126) U/L Troponin I (0.000-0.034) ng/mL Total Protein (6.3-8.2) g/dL Albumin (3.5-5.0) g/dL Urine Color Urine Appearance (Clear) Urine pH (5.0-8.0) Ur Specific [place] (1.001-1.035) Urine Protein (Negative) Urine Glucose (UA) (Negative) Urine Ketones (Negative) Urine Blood (Negative) Urine Nitrite (Negative) Urine Bilirubin (Negative) Urine Urobilinogen (<2.0) mg/dL Ur Leukocyte Esterase (Negative) Urine RBC (0-5) /hpf Urine WBC (0-5) /hpf Ur Squamous Epith Cells (0-4) /hpf Urine Bacteria (None) /hpf Hyaline Casts (0-2) /lpf Urine Mucus (None) /hpf Disposition Clinical Impression: Weakness, Recurrent UTI, Failure to thrive Disposition: HOME SELF-CARE Condition: Good Instructions (If sedation given, give patient instructions): Weakness (ED) Is patient prescribed a controlled substance at d/c from ED?: No Referrals: Andrew Gonsales MD [Primary Care Provider] - 1-2 days
[2021-09-19 04:08] LABS: ALT 19 U/L (4-34); AST 23 U/L (14-36); African American GFR (CKD) >90 (>60 ml/min/1.73 sqM); Albumin 3.9 g/dL (3.5-5.0); Alkaline Phosphatase 54 U/L (38-126); Anion Gap 4 mmol/L; Blood Urea Nitrogen 23 mg/dL (7-17); Calcium 9.3 mg/dL (8.4-10.2); Carbon Dioxide 34 mmol/L (22-30); Chloride 100 mmol/L (98-107); Glucose 86 mg/dL (74-99); Magnesium 1.7 mg/dL (1.6-2.3); Non-African American GFR(CKD) 89 (>60 ml/min/1.73 sqM); Phosphorus 5.6 mg/dL (2.5-4.5); Sodium 138 mmol/L (137-145); Total Bilirubin 0.7 mg/dL (0.2-1.3); Total Protein 6.2 g/dL (6.3-8.2)
[2021-09-19 04:18] LABS: INR 0.9 (<1.2); Prothrombin Time 9.9 sec (9.0-12.0)
[2021-09-19 04:36] LABS: HCT 44.1 % (34.0-46.0); HGB 13.7 gm/dL (11.4-16.0); MCHC 31.2 g/dL (31.0-37.0); MCV 92.9 fL (80.0-100.0); Mean Platelet Volume 7.8; Platelet Count 230 k/uL (150-450); RBC 4.74 m/uL (3.80-5.40); RDW 14.6 % (11.5-15.5); WBC 9.3 k/uL (3.8-10.6)
[2021-09-19 04:38] LABS: Partial Thromboplastin Time 19.5 sec (22.0-30.0)
[2021-09-19] MEDS ORDERED: LABETALOL 5 MG/ML VIAL MDV IVP STA (04:46)
[2021-09-19 05:11] VITALS: PULSE 80; RESP 18
[2021-09-19] MEDS ORDERED: HYDROmorphone 0.5 MG/0.5 ML SYRINGE IVP STA ×2 (05:39→07:13)
[2021-09-19 05:45] LABS: Appearance,Urine Clear (Clear); Bacteria,Urine Rare /hpf; Bilirubin,Urine Negative (Negative); Blood,Urine Negative (Negative); Color,Urine Yellow; Glucose,Urine (UA) Negative (Negative); Hyaline Casts,Urine 4 /lpf (0-2); Ketones,Urine Negative (Negative); Leukocyte Esterase,Urine Small (Negative); Mucus,Urine Rare /hpf; Nitrite,Urine Negative (Negative); PH, Urine 6.5 (5.0-8.0); Protein,Urine Negative (Negative); RBC,Urine 6 /hpf (0-5); Specific Gravity,Urine 1.019 (1.001-1.035); Squamous Epithelial Cell,Urine 2 /hpf (0-4); Urobilinogen,Urine <2.0 mg/dL (<2.0); WBC,Urine 16 /hpf (0-5)
[2021-09-19 05:51] LABS: Band Neutrophils % 5 %; Eosinophils # (M) 0.09 k/uL (0-0.7); Lymphocytes # (M) 1.86 k/uL (1.0-4.8); Monocytes # (M) 0.65 k/uL (0-1.0); Neutrophils % (M) 67 %; Nucleated Red Blood Cells 0 /100 WBC (0-0); Total Cells Counted 100
[2021-09-19 06:39] VITALS: BP 147/86
[2021-09-19 07:20] LABS: Glucose,Whole Blood 153 mg/dL (75-99)
== END 2021-09-19 08:50 | disposition home or self-care (01) ==
LOC: EC 03:08
DX: R53.1 Weakness (principal); N39.0 Urinary tract infection, site not specified; R62.7 Adult failure to thrive; Z68.30 Body mass index [BMI] 30.0-30.9, adult; E11.40 Type 2 diabetes mellitus with diabetic neuropathy, unspecified; E78.5 Hyperlipidemia, unspecified; F32.A Depression, unspecified; I10 Essential (primary) hypertension; M79.7 Fibromyalgia; Z79.4 Long term (current) use of insulin; Z79.82 Long term (current) use of aspirin; Z79.899 Other long term (current) drug therapy; Z86.718 Personal history of other venous thrombosis and embolism; Z88.0 Allergy status to penicillin; Z88.1 Allergy status to other antibiotic agents; Z88.2 Allergy status to sulfonamides; Z88.5 Allergy status to narcotic agent
CPT/HCPCS: 36415; 93005; 80053; 83735; 84100; 84484; 85025; 85610; 85730; 81001; 87086; 87077; 87186; 99285; 96374; 96375; 96361 ×5; J1170

== ENCOUNTER 2021-09-21 16:20 | Inpatient (IN) | payer MEDICARE, BC ==
--- NOTE | 2021-09-21 17:29 | XR ---
EXAMINATION TYPE: XR chest 2V DATE OF EXAM: 09/21/2021 COMPARISON: Chest x-ray February 17, 2021 HISTORY: Weakness. TECHNIQUE: Frontal and lateral views of the chest are obtained. FINDINGS: There are chronic parenchymal changes bilaterally without suspicious focal air space opaci ty, pleural effusion, or pneumothorax seen. Prominent cardiomegaly with ectatic thoracic aorta redemo nstrated. Suspected distal right clavicle resection is once again redemonstrated. Cholecystectomy cli ps noted on lateral view. IMPRESSION: Chronic changes and cardiomegaly without acute pulmonary process. No significant change from prior.
[2021-09-21 17:39] LABS: Albumin 3.7 g/dL (3.5-5.0); Calcium 8.9 mg/dL (8.4-10.2); Magnesium 1.7 mg/dL (1.6-2.3); Potassium 4.7 mmol/L (3.5-5.1); Total Bilirubin 1.5 mg/dL (0.2-1.3); Total Protein 6.2 g/dL (6.3-8.2)
--- NOTE | 2021-09-21 17:47 | ED ---
Weakness HPI - General Chief complaint: Weakness Stated complaint: weakness Time Seen by Provider: 09/21/21 16:44 Source: patient, EMS, RN notes reviewed Mode of arrival: EMS Limitations: no limitations - History of Present Illness Initial comments: 71-year-old female history of multiple medical issues including frequent UTIs who is here today because of generalized weakness going on for the past few days. She states she's had decreased oral intake nausea vomiting dysuria she was on antibiotics but has not been on any she thought she had a reaction to the previous ones she's had chills and sweats also right flank pain 02/26 severity she does have a history kidney stones. She was able take her medications including Cortef this morning she states. MD Complaint: generalized weakness - Related Data Home Medications Medication Instructions Recorded Confirmed Meclizine [Antivert] 25 mg PO QID PRN 11/26/17 09/21/21 Ferrous Sulfate [Iron (65 MG 325 mg PO DAILY 10/08/18 09/21/21 Elemental)] Folic Acid 0.4 mg PO DAILY 10/08/18 09/21/21 L.acidoph,Paracasei, B.lactis 2 cap PO BID 10/08/18 09/21/21 [Probiotic] Melatonin 5 mg PO HS PRN 10/08/18 09/21/21 Potassium 99 mg PO DAILY 10/08/18 09/21/21 Thiamine [Vitamin B-1] 100 mg PO DAILY 10/08/18 09/21/21 Vitamin B-Complex Drops 1 ml PO BID 10/08/18 09/21/21 Magnesium Oxide [Mag-Ox] 400 mg PO DAILY 12/06/19 09/21/21 C,E,Zinc,Copper 11/Vruhr4g/Lut 1 cap PO DAILY 06/25/20 09/21/21 [Ocuvite Adult 50 Plus Softgel] Cyanocobalamin (Vitamin B-12) 1,000 mcg PO DAILY 06/25/20 09/21/21 [Vitamin B-12] Spironolactone 50 mg PO DAILY 06/25/20 09/21/21 Vitamin E 400 unit PO DAILY 06/25/20 09/21/21 Brimonidine Tartrate [Alphagan P 1 drop RIGHT EYE BID 11/26/20 09/21/21 0.2% Ophth Soln] Glucagon [Gvoke Pfs 1-Pack Syringe] 1 mg SQ ONCE PRN 11/26/20 09/21/21 Pantoprazole Sodium [Protonix] 40 mg PO DAILY 11/26/20 09/21/21 busPIRone HCl [Buspar] 5 mg PO BID 02/04/21 09/21/21 Nystatin 1 applic TOPICAL BID PRN 02/17/21 09/21/21 Insulin Aspart (For Pump) [NovoLOG 0.01 unit SQ-PUMP CONTINUOUS 03/03/21 09/21/21 (For Pump)] Cranberry Fruit Extract [Cranberry] 1,500 mg PO BID 08/15/21 09/21/21 Escitalopram [Lexapro] 10 mg PO HS 08/15/21 09/21/21 Liquid Multi Vitamin 30 ml PO DAILY 08/15/21 09/21/21 Ondansetron [Zofran] 4 mg PO Q6H PRN 08/15/21 09/21/21 Rosuvastatin Calcium [Crestor] 5 mg PO HS 08/15/21 09/21/21 lisinopriL 40 mg PO DAILY 08/15/21 09/21/21 Cholestyramine (with Sugar) 4 gm PO BID PRN 09/06/21 09/21/21 [Cholestyramine Packet] Metoprolol Succinate [Toprol XL] 100 mg PO HS 09/06/21 09/21/21 Sucralfate [Carafate] 1 gm PO AC-TID 09/06/21 09/21/21 Cholecalciferol [Vitamin D3 (25 75 mcg PO DAILY 09/21/21 09/21/21 Mcg = 1000 Iu)] Lactobacillus Acidoph & Bulgar 1 tab PO TID 09/21/21 09/21/21 [Lactinex] Promethazine [Phenergan] 25 mg PO TID PRN 09/21/21 09/21/21 Previous Rx's Medication Instructions Recorded Aspirin 81 mg PO DAILY #0 07/02/18 Gabapentin [Neurontin] 100 mg PO TID #9 cap 03/24/20 Hydrocortisone [Cortef] 5 mg PO HS #0 12/16/20 Hydrocortisone [Cortef] 10 mg PO DAILY@1200 #0 12/16/20 Hydrocortisone [Cortef] 15 mg PO DAILY #0 12/16/20 Butalb/APAP/Caff 50-325-40Mg 1 tab PO TID PRN #9 tab 08/20/21 [Fioricet 50-325-40] Cephalexin [Keflex] 250 mg PO HS #0 08/20/21 HYDROcodone/APAP 10-325MG [Bison 1 tab PO QID PRN #12 tab 08/20/21 10-325] Loperamide [Imodium] 2 mg PO QID PRN cap 09/10/21 Psyllium Husk 100% [Metamucil 6 gm PO DAILY packet 09/10/21 Packet] Allergies Allergy/AdvReac Type Severity Reaction Status Date / Time butorphanol tartrate Allergy BLISTERS Verified 09/21/21 18:07 [From Stadol] IN MOUTH ceftriaxone [From Rocephin] Allergy Unknown Verified 09/21/21 18:07 clarithromycin [From Biaxin] Allergy Rash/Hives Verified 09/21/21 18:07 clindamycin Allergy Unknown Verified 09/21/21 18:07 codeine Allergy Rash/Hives Verified 09/21/21 18:07 ergotamine tartrate Allergy Unknown Verified 09/21/21 18:07 [From Cafergot] erythromycin base Allergy RASH, GI Verified 09/21/21 18:07 [From E-Mycin] SYMPTOMS ketorolac tromethamine Allergy Rash/Hives Verified 09/21/21 18:07 [From Toradol] liraglutide [From Victoza] Allergy Rash/Hives Verified 09/21/21 18:07 morphine Allergy Rash/Hives Verified 09/21/21 18:07 Penicillins Allergy Rash/Hives Verified 09/21/21 18:07 on upper body pentazocine lactate Allergy SEVERE Verified 09/21/21 18:07 [From Talwin] BLISTERS IN MOUTH pregabalin [From Lyrica] Allergy Rash/Hives Verified 09/21/21 18:07 propoxyphene HCl Allergy Rash/Hives Verified 09/21/21 18:07 [From Darvon] Sulfa (Sulfonamide Allergy Rash/Hives Verified 09/21/21 18:07 Antibiotics) tramadol Allergy Unknown Verified 09/21/21 18:07 monosodium glutamate [MSG] AdvReac Nausea & Verified 09/21/21 18:07 Vomiting nalbuphine HCl [From Nubain] AdvReac Nausea & Verified 09/21/21 18:07 Vomiting Review of Systems ROS Statement: Those systems with pertinent positive or pertinent negative responses have been documented in the HPI. ROS Other: All systems not noted in ROS Statement are negative. 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, DVT R calf in 1976, cardiac murmur, occipital neuraligia, balance issues-has narrowing of vessels "in the back of my head", vertigo, varicosities, states rt shoulder torn rotator cuff History of Any Multi-Drug Resistant Organisms: ESBL, MRSA, VRE Date of last positivie culture/infection: 11/25/20 ESBL;12/06/19 VRE; 03/10/11 MRSA MDRO Source:: Urine ESBL; Urine-VRE: MRSA 4th Right TOE Past Surgical History: Appendectomy, Back Surgery, Bladder Surgery, Breast Surgery, Cholecystectomy, Heart Catheterization, Hysterectomy, Orthopedic S urgery, Tonsillectomy Additional Past Surgical History / Comment(s): Lumbar fusions, bladder suspension, occipital nerve blocks, 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, R wrist/elbow nerve repair, bone removed R shoulder, 4th toe R foot partial amputation, bilateral feet/bunionectomies, R knee arthroscopies, R orbit decompression with ethmoidectomy and eyelid lift, EGD, colonoscopies, cystocopies, lithotripsy/stents, bilateral breast reduction, bilateral cataract removals, parathyroid surgery - April 2019, pain clinic procedures Past Anesthesia/Blood Transfusion Reactions: No Reported Reaction Additional Past Anesthesia/Blood Transfusion Reaction / Comment(s): never recieved blood Past Psychological History: Depression Smoking Status: Never smoker Past Alcohol Use History: Rare Past Drug Use History: None Reported - Past Family History Father Family Medical History: Coronary Artery Disease (CAD), CVA/TIA, Diabetes Mellitus, Myocardial Infarction (IA), Pneumonia Additional Family Medical History / Comment(s): Father at the age of 78yrs from IA and pneumonia. Mother Family Medical History: Cancer, Congestive Heart Failure (CHF) Additional Family Medical History / Comment(s): Mother had uterine cancer. She recently at the age of 96yrs old from shingles. General Exam - General Exam Comments Initial Comments: This is a well-developed well-nourished awake alert oriented 3 female Limitations: no limitations General appearance: alert, anxious Head exam: Present: atraumatic, normocephalic, normal inspection Eye exam: Present: normal appearance, PERRL, EOMI. Absent: scleral icterus, conjunctival injection, periorbital swelling ENT exam: Present: mucous membranes moist, other (Patient does demonstrate exophthalmos) Neck exam: Present: normal inspection, full ROM, other (No stridor JVD or bruits). Absent: tenderness, meningismus, lymphadenopathy Respiratory exam: Present: normal lung sounds bilaterally. Absent: respiratory distress, wheezes, rales, rhonchi, stridor Cardiovascular Exam: Present: regular rate, normal rhythm, normal heart sounds. Absent: systolic murmur, diastolic murmur, rubs, gallop, clicks GI/Abdominal exam: Present: soft, normal bowel sounds. Absent: distended, tenderness, guarding, rebound, rigid Extremities exam: Present: normal inspection, full ROM, normal capillary refill. Absent: tenderness, pedal edema, joint swelling, calf tenderness Back exam: Present: normal inspection Neurological exam: Present: alert, oriented X3, CN II-XII intact Psychiatric exam: Present: normal affect, normal mood Skin exam: Present: warm, dry, intact, normal color. Absent: rash Course Vital Signs 09/21/21 09/21/21 16:26 18:30 Temperature 98.8 F Pulse Rate 83 86 Respiratory 18 16 Rate Blood Pressure 103/74 125/79 O2 Sat by Pulse 93 L 97 Oximetry EKG Findings - EKG Results: EKG: interpreted by FREDDY, sinus rhythm (Sinus rhythm of 74. 136 QRS duration 81 QT since QTC 402/429 evidence of LVH no acute ST-T wave changes) Medical Decision Making - Medical Decision Making Patient require more pain medication for the right flank pain. There is some evidence of dehydration as well as UTI patient will be admitted she was on Keflex before without any incident be placed on IV Ancef. I did discuss case initially with Dr. Gonsales - Lab Data Result diagrams: 09/21/21 17:45 09/21/21 17:12 Lab Results 09/21/21 09/21/21 09/21/21 Range/Units 17:12 17:12 17:12 WBC (3.8-10.6) k/uL RBC (3.80-5.40) m/uL Hgb (11.4-16.0) gm/dL Hct (34.0-46.0) % MCV (80.0-100.0) fL MCH (25.0-35.0) pg MCHC (31.0-37.0) g/dL RDW (11.5-15.5) % Plt Count (150-450) k/uL MPV Neutrophils % % Lymphocytes % % Monocytes % % Eosinophils % % Basophils % % Neutrophils # (1.3-7.7) k/uL Lymphocytes # (1.0-4.8) k/uL Monocytes # (0-1.0) k/uL Eosinophils # (0-0.7) k/uL Basophils # (0-0.2) k/uL PT 10.2 (9.0-12.0) sec INR 0.9 (<1.2) APTT 16.4 L (22.0-30.0) sec Sodium 135 L (137-145) mmol/L Potassium 4.7 (3.5-5.1) mmol/L Chloride 102 (98-107) mmol/L Carbon Dioxide 24 (22-30) mmol/L Anion Gap 9 mmol/L BUN 26 H (7-17) mg/dL Creatinine 1.19 H (0.52-1.04) mg/dL Est GFR (CKD-EPI)AfAm 53 (>60 ml/min/1.73 sqM) Est GFR (CKD-EPI)NonAf 46 (>60 ml/min/1.73 sqM) Glucose 238 H (74-99) mg/dL Plasma Lactic Acid Sudhir 1.1 (0.7-2.0) mmol/L Calcium 8.9 (8.4-10.2) mg/dL Magnesium 1.7 (1.6-2.3) mg/dL Total Bilirubin 1.5 H (0.2-1.3) mg/dL AST 30 (14-36) U/L ALT 19 (4-34) U/L Alkaline Phosphatase 67 (38-126) U/L Troponin I (0.000-0.034) ng/mL NT-Pro-B Natriuret Pep pg/mL Total Protein 6.2 L (6.3-8.2) g/dL Albumin 3.7 (3.5-5.0) g/dL Urine Color Urine Appearance (Clear) Urine pH (5.0-8.0) Ur Specific [place] (1.001-1.035) Urine Protein (Negative) Urine Glucose (UA) (Negative) Urine Ketones (Negative) Urine Blood (Negative) Urine Nitrite (Negative) Urine Bilirubin (Negative) Urine Urobilinogen (<2.0) mg/dL Ur Leukocyte Esterase (Negative) Urine RBC (0-5) /hpf Urine WBC (0-5) /hpf Ur Squamous Epith Cells (0-4) /hpf Urine Bacteria (None) /hpf Hyaline Casts (0-2) /lpf Urine Mucus (None) /hpf 09/21/21 09/21/21 09/21/21 Range/Units 17:12 17:45 17:45 WBC 15.4 H (3.8-10.6) k/uL RBC 4.92 (3.80-5.40) m/uL Hgb 14.7 (11.4-16.0) gm/dL Hct 46.1 H (34.0-46.0) % MCV 93.7 (80.0-100.0) fL MCH 30.0 (25.0-35.0) pg MCHC 32.0 (31.0-37.0) g/dL RDW 14.0 (11.5-15.5) % Plt Count 214 (150-450) k/uL MPV 8.2 Neutrophils % 87 % Lymphocytes % 9 % Monocytes % 3 % Eosinophils % 1 % Basophils % 0 % Neutrophils # 13.4 H (1.3-7.7) k/uL Lymphocytes # 1.4 (1.0-4.8) k/uL Monocytes # 0.4 (0-1.0) k/uL Eosinophils # 0.1 (0-0.7) k/uL Basophils # 0.1 (0-0.2) k/uL PT (9.0-12.0) sec INR (<1.2) APTT (22.0-30.0) sec Sodium (137-145) mmol/L Potassium (3.5-5.1) mmol/L Chloride (98-107) mmol/L Carbon Dioxide (22-30) mmol/L Anion Gap mmol/L BUN (7-17) mg/dL Creatinine (0.52-1.04) mg/dL Est GFR (CKD-EPI)AfAm (>60 ml/min/1.73 sqM) Est GFR (CKD-EPI)NonAf (>60 ml/min/1.73 sqM) Glucose (74-99) mg/dL Plasma Lactic Acid Sudhir (0.7-2.0) mmol/L Calcium (8.4-10.2) mg/dL Magnesium (1.6-2.3) mg/dL Total Bilirubin (0.2-1.3) mg/dL AST (14-36) U/L ALT (4-34) U/L Alkaline Phosphatase (38-126) U/L Troponin I 0.019 (0.000-0.034) ng/mL NT-Pro-B Natriuret Pep pg/mL Total Protein (6.3-8.2) g/dL Albumin (3.5-5.0) g/dL Urine Color Dark Yellow Urine Appearance Cloudy H (Clear) Urine pH 6.0 (5.0-8.0) Ur Specific [place] 1.025 (1.001-1.035) Urine Protein Trace (Negative) Urine Glucose (UA) Trace (Negative) Urine Ketones 1+ (Negative) Urine Blood Negative (Negative) Urine Nitrite Negative (Negative) Urine Bilirubin Negative (Negative) Urine Urobilinogen 2.0 (<2.0) mg/dL Ur Leukocyte Esterase Large (Negative) Urine RBC 3 (0-5) /hpf Urine WBC 18 H (0-5) /hpf Ur Squamous Epith Cells 12 H (0-4) /hpf Urine Bacteria Rare H (None) /hpf Hyaline Casts 7 H (0-2) /lpf Urine Mucus Rare H (None) /hpf 09/21/ Range/Units 17:45 WBC (3.8-10.6) k/uL RBC (3.80-5.40) m/uL Hgb (11.4-16.0) gm/dL Hct (34.0-46.0) % MCV (80.0-100.0) fL MCH (25.0-35.0) pg MCHC (31.0-37.0) g/dL RDW (11.5-15.5) % Plt Count (150-450) k/uL MPV Neutrophils % % Lymphocytes % % Monocytes % % Eosinophils % % Basophils % % Neutrophils # (1.3-7.7) k/uL Lymphocytes # (1.0-4.8) k/uL Monocytes # (0-1.0) k/uL Eosinophils # (0-0.7) k/uL Basophils # (0-0.2) k/uL PT (9.0-12.0) sec INR (<1.2) APTT (22.0-30.0) sec Sodium (137-145) mmol/L Potassium (3.5-5.1) mmol/L Chloride (98-107) mmol/L Carbon Dioxide (22-30) mmol/L Anion Gap mmol/L BUN (7-17) mg/dL Creatinine (0.52-1.04) mg/dL Est GFR (CKD-EPI)AfAm (>60 ml/min/1.73 sqM) Est GFR (CKD-EPI)NonAf (>60 ml/min/1.73 sqM) Glucose (74-99) mg/dL Plasma Lactic Acid Sudhir (0.7-2.0) mmol/L Calcium (8.4-10.2) mg/dL Magnesium (1.6-2.3) mg/dL Total Bilirubin (0.2-1.3) mg/dL AST (14-36) U/L ALT (4-34) U/L Alkaline Phosphatase (38-126) U/L Troponin I (0.000-0.034) ng/mL NT-Pro-B Natriuret Pep 1050 pg/mL Total Protein (6.3-8.2) g/dL Albumin (3.5-5.0) g/dL Urine Color Urine Appearance (Clear) Urine pH (5.0-8.0) Ur Specific [place] (1.001-1.035) Urine Protein (Negative) Urine Glucose (UA) (Negative) Urine Ketones (Negative) Urine Blood (Negative) Urine Nitrite (Negative) Urine Bilirubin (Negative) Urine Urobilinogen (<2.0) mg/dL Ur Leukocyte Esterase (Negative) Urine RBC (0-5) /hpf Urine WBC (0-5) /hpf Ur Squamous Epith Cells (0-4) /hpf Urine Bacteria (None) /hpf Hyaline Casts (0-2) /lpf Urine Mucus (None) /hpf - Radiology Data Radiology results: report reviewed (Imaging reviewed no evidence of acute obstruction no kidney stones visualized with a complete report), image reviewed Disposition Clinical Impression: Urinary tract infection, Dehydration, Weakness, Right flank pain Disposition: ADMITTED IP TO THIS [facility] Condition: Fair Referrals: Andrew Gonsales MD [Primary Care Provider] - 1-2 days Decision Date: 09/21/21 Decision Time: 21:05
[2021-09-21 17:56] LABS: INR 0.9 (<1.2); Prothrombin Time 10.2 sec (9.0-12.0)
[2021-09-21] MEDS ORDERED: HYDROmorphone 1 MG/ML 1 ML SYRINGE IVP STA (18:04)
[2021-09-21 18:34] LABS: Partial Thromboplastin Time 16.4 sec (22.0-30.0)
--- NOTE | 2021-09-21 18:38 | CT ---
EXAMINATION TYPE: CT abdomen pelvis wo con DATE OF EXAM: 09/21/2021 HISTORY: Right flank pain, kidney stone suspected. CT DLP: 634.3 mGycm. Automated Exposure Control for Dose Reduction was Utilized. TECHNIQUE: CT scan of the abdomen and pelvis is performed without oral or IV contrast. COMPARISON: CT abdomen and pelvis 2 weeks ago FINDINGS: Within the limitations of a non-contrast study, the following observations are made. LUNG BASES: Persistent cardiomegaly. Suspected dystrophic calcifications right lateral deep subcutane ous tissue axial image 4. Small to tiny anterior inferior pericardial effusion redemonstrated. LIVER/GB: Cholecystectomy clips redemonstrated. PANCREAS: No significant abnormality is seen. SPLEEN: No significant abnormality is seen. ADRENALS: No significant abnormality is seen. KIDNEYS: Persistent cortical thinning with a few partially exophytic thin-walled cysts bilaterally re demonstrated. Roughly 3 small central calcifications left kidney redemonstrated, nonobstructing calcu li versus vascular calcifications. Slightly hyperdense renal pyramids again seen. No new hydronephros is or obstructing ureter calculus bilaterally. Phlebolith along the course of the right ureter and ad jacent draining vein redemonstrated axial image 78. Scattered bilateral pelvic phleboliths. BOWEL: Suboptimal without enteric contrast. Stomach poorly distended and suboptimally evaluated. No s uspicious small or large bowel dilatation GENITAL ORGANS: Uterus surgically absent . LYMPH NODES: No greater than 1cm abdominal or pelvic lymph nodes are appreciated. OSSEOUS STRUCTURES: Old fractures of the bilateral superior and inferior pelvic rami redemonstrated. Postsurgical changes L3-S1 level redemonstrated. Persistent moderate to severe narrowing with subchon dral cystic change and sclerosis L2-L3 level. Old bilateral lower rib fractures again seen. OTHER: Posterior gluteal soft tissue calcifications redemonstrated probable injection granulomas. IMPRESSION: No new hydronephrosis or obstructing ureteral calculi. No new acute findings. No signific ant change from recent CT.
[2021-09-21 18:56] LABS: Basophils # (A) 0.1 k/uL (0-0.2); Basophils % (A) 0 %; Eosinophils # (A) 0.1 k/uL (0-0.7); Eosinophils % (A) 1 %; HCT 46.1 % (34.0-46.0); HGB 14.7 gm/dL (11.4-16.0); Lymphocytes # (A) 1.4 k/uL (1.0-4.8); Lymphocytes % (A) 9 %; MCV 93.7 fL (80.0-100.0); Mean Platelet Volume 8.2; Monocytes # (A) 0.4 k/uL (0-1.0); Monocytes % (A) 3 %; Neutrophils # (A) 13.4 k/uL (1.3-7.7); Neutrophils % (A) 87 %; Platelet Count 214 k/uL (150-450); RBC 4.92 m/uL (3.80-5.40); WBC 15.4 k/uL (3.8-10.6)
[2021-09-21 20:17] LABS: Appearance,Urine Cloudy (Clear); Bacteria,Urine Rare /hpf; Color,Urine Dark Yellow; Hyaline Casts,Urine 7 /lpf (0-2); Mucus,Urine Rare /hpf; RBC,Urine 3 /hpf (0-5); Squamous Epithelial Cell,Urine 12 /hpf (0-4); WBC,Urine 18 /hpf (0-5)
[2021-09-21 20:18] LABS: Bilirubin,Urine Negative (Negative); Blood,Urine Negative (Negative); Glucose,Urine (UA) Trace (Negative); Ketones,Urine 1+ (Negative); Protein,Urine Trace (Negative); Specific Gravity,Urine 1.025 (1.001-1.035)
[2021-09-21 20:19] LABS: Leukocyte Esterase,Urine Large (Negative); Nitrite,Urine Negative (Negative)
[2021-09-21] MEDS ORDERED: SODIUM CHLORIDE 0.9% 1,000 ML IV STA (21:19)
[2021-09-21] MEDS ORDERED: SODIUM CHLORIDE 0.9% 500 ML 500 ML IV STA (21:19)
[2021-09-21] MEDS ORDERED: ACETAMINOPHEN TAB 325 MG TAB PO PRN (21:48)
[2021-09-21] MEDS ORDERED: NALOXONE 0.4 MG/ML 1 ML VIAL IV PRN (21:48)
[2021-09-21] MEDS ORDERED: PROMETHAZINE 25 MG TAB PO PRN (21:51)
[2021-09-21] MEDS ORDERED: LOPERAMIDE 2 MG CAP PO PRN (21:51)
[2021-09-21] MEDS ORDERED: CHOLESTYRAMINE (WITH SUGAR) 4 GM PACKET PO PRN (21:51)
[2021-09-21] MEDS ORDERED: ONDANSETRON 4 MG TAB PO PRN (21:51)
[2021-09-21] MEDS ORDERED: MECLIZINE 25 MG TAB PO PRN (21:51)
[2021-09-21] MEDS ORDERED: MELATONIN 5 MG TABLET PO PRN (21:51)
[2021-09-21] MEDS ORDERED: BUTALB/APAP/CAFF 50-325-40MG TAB PO PRN (21:51)
[2021-09-21] MEDS: HYDROcodone/APAP 10-325MG 1 EACH TAB PO PRN (22:15)
[2021-09-21] MEDS: Insulin Aspart (For Pump) 100 UNIT/ML VIAL SQ-PUMP SCH (22:18)
[2021-09-21] MEDS: LACTOBACILLUS ACIDOPH & BULGAR 1 EACH PACKET PO SCH (22:19)
[2021-09-22] MEDS: GABAPENTIN 100 MG CAP PO SCH ×4 (01:15→21:09)
[2021-09-22] MEDS: HYDROcodone/APAP 10-325MG 1 EACH TAB PO PRN ×4 (04:44→22:31)
[2021-09-22] MEDS: ASPIRIN 81 MG PO SCH (08:19)
[2021-09-22] MEDS: FERROUS SULFATE 325 MG TAB PO SCH (08:19)
[2021-09-22] MEDS: SUCRALFATE 1 GM TAB PO SCH ×3 (08:19→17:19)
[2021-09-22] MEDS: LACTOBACILLUS ACIDOPH & BULGAR 1 EACH PACKET PO SCH ×3 (08:19→21:09)
[2021-09-22] MEDS: PANTOPRAZOLE 40 MG TABLET PO SCH (08:19)
[2021-09-22] MEDS: lisinopriL 20 MG TAB PO SCH (08:19)
[2021-09-22] MEDS: PSYLLIUM HUSK 100% 6 GM PACKET PO SCH ×2 (08:19→08:23)
[2021-09-22] MEDS: MAGNESIUM OXIDE 400 MG TAB PO SCH (08:19)
[2021-09-22] MEDS: SPIRONOLACTONE 25 MG TAB PO SCH (08:19)
[2021-09-22] MEDS: busPIRone HCl 5 MG TAB PO SCH ×2 (08:19→21:09)
[2021-09-22] MEDS: HYDROCORTISONE 10 MG TAB PO SCH ×3 (08:30→21:09)
[2021-09-22] MEDS: BRIMONIDINE TARTRATE 0.2% DROPS 5 ML BTL RIGHT EYE SCH ×2 (08:36→21:09)
[2021-09-22] MEDS ORDERED: NON FORMULARY DRUG (Folic Acid [Folic Acid] 0.4 MG Tablet) PO SCH (09:00)
[2021-09-22] MEDS ORDERED: NON FORMULARY DRUG (Potassium [Potassium] 99 MG Tablet) PO SCH (09:00)
[2021-09-22] MEDS ORDERED: HYDROCORTISONE 10 MG TAB PO SCH (09:00)
[2021-09-22] MEDS: HYDROmorphone 0.5 MG/0.5 ML SYRINGE IVP PRN ×2 (10:17→16:08)
[2021-09-22] MEDS: VITAMIN E (DL,TOCOPHERYL ACET) 400 UNIT (180 MG) CAP PO SCH (11:34)
[2021-09-22] MEDS: VIT A,C & E-LUTEIN-MINERALS 1 EACH TAB PO SCH (11:34)
[2021-09-22] MEDS: CHOLECALCIFEROL 25 MCG (1000 IU) TABLET PO SCH (11:34)
[2021-09-22 17:07] LABS: Glucose,Whole Blood 555 mg/dL (75-99)
[2021-09-22 17:09] LABS: Glucose,Whole Blood 560 mg/dL (75-99)
[2021-09-22] MEDS ORDERED: INSULIN ASPART (NovoLOG) 100 UNIT/ML VIAL SQ ONE ×2 (17:31→21:04)
[2021-09-22 17:42] LABS: Glucose,Whole Blood 572 mg/dL (75-99)
[2021-09-22] MEDS: INSULIN DETEMIR (LEVEMIR) 100 UNIT/ML SYR SQ SCH (17:46)
[2021-09-22 20:49] LABS: Glucose,Whole Blood 480 mg/dL (75-99)
[2021-09-22] MEDS ORDERED: NON FORMULARY DRUG (L.Acidoph,Paracasei, B.Lactis [Probiotic] 1 EACH Capsule) PO SCH (21:00)
[2021-09-22] MEDS: ESCITALOPRAM 10 MG TAB PO SCH (21:09)
[2021-09-22] MEDS: METOPROLOL SUCCINATE (ER) 100 MG TAB.ER.24H PO SCH (21:09)
[2021-09-22] MEDS: ATORVASTATIN 10 MG TAB PO SCH (21:09)
[2021-09-22] MEDS: Insulin Aspart (For Pump) 100 UNIT/ML VIAL SQ-PUMP SCH (21:10)
[2021-09-22] MEDS: INSULIN ASPART (NovoLOG) 100 UNIT/ML VIAL SQ SCH ×2 (21:11→22:15)
--- NOTE | 2021-09-22 21:58 | P.HPIM ---
History of Present Illness H&P Date: 09/22/21 Chief Complaint: flank pain Melissa Stark is a 70 yo F who was recently admitted for recurrent cystitis and discharged about 2 weeks ago who presents for recurrence of R flank pain as well as weakness and nausea over the psat few days. She has a PMH of chronic cystitis with history of MDR bacteria, on keflex prophylactically, adrenal insufficency, T2DM, migraine, chronic pain. She states that since her discharge she initally did well but then began to feel weak and shaky in the past few days. On presentation, vitals stable, WBC 15k, Cr 1.2, baselin 0.7, procalcitonin 0.15, UA with bacteria present. CT abd/pelvis no acute process. Review of Systems All systems: negative Constitutional: Reports malaise, Reports weakness, Denies chills, Denies fever Eyes: denies blurred vision, denies pain Ears, nose, mouth and throat: Denies headache, Denies sore throat Cardiovascular: Denies chest pain, Denies shortness of breath Respiratory: Denies cough Gastrointestinal: Reports abdominal pain, Denies diarrhea, Denies nausea, Denies vomiting Genitourinary: Denies dysuria, Denies hematuria Musculoskeletal: Denies myalgias Integumentary: Denies pruritus, Denies rash Neurological: Denies numbness, Denies weakness Psychiatric: Denies anxiety, Denies depression Endocrine: Denies fatigue, Denies weight change Past Medical History Past Medical History: Diabetes Mellitus, Deep Vein Thrombosis (DVT), Fibromyalgia, Hyperlipidemia, Hypertension, Osteoarthritis (OA), Pneumonia, Renal Disease, Sleep Apnea/CPAP/BIPAP, Vascular Disorder Additional Past Medical History / Comment(s): Pt recently admitted to [facility] with R flank pain. 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, DVT R calf in 1976, cardiac murmur, occipital neuraligia, balance issues-has narrowing of vessels "in the back of my head", vertigo, varicosities, states rt shoulder torn rotator cuff History of Any Multi-Drug Resistant Organisms: ESBL, MRSA, VRE Date of last positivie culture/infection: 11/25/20 ESBL;12/06/19 VRE; 03/10/11 MRSA MDRO Source:: Urine ESBL; Urine-VRE: MRSA 4th Right TOE Past Surgical History: Appendectomy, Back Surgery, Bladder Surgery, Breast Surgery, Cholecystectomy, Heart Catheterization, Hysterectomy, Orthopedic Surgery, Tonsillectomy Additional Past Surgical History / Comment(s): Lumbar fusions, bladder suspension, occipital nerve blocks, 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, R wrist/elbow nerve repair, bone removed R shoulder, 4th toe R foot partial amputation, bilateral feet/bunionectomies, R knee arthroscopies, R orbit decompression with ethmoidectomy and eyelid lift, EGD, colonoscopies, cystocopies, lithotripsy/stents, bilateral breast reduction, bilateral cataract removals, parathyroid surgery - April 2019, pain clinic procedures Past Anesthesia/Blood Transfusion Reactions: No Reported Reaction Additional Past Anesthesia/Blood Transfusion Reaction / Comment(s): never recieved blood Smoking Status: Never smoker - Past Family History Father Family Medical History: Coronary Artery Disease (CAD), CVA/TIA, Diabetes Mellitus, Myocardial Infarction ([place]), Pneumonia Additional Family Medical History / Comment(s): Father at the age of 78yrs from [place] and pneumonia. Mother Family Medical History: Cancer, Congestive Heart Failure (CHF) Additional Family Medical History / Comment(s): Mother had uterine cancer. She recently at the age of 96yrs old from shingles. Medications and Allergies Home Medications Medication Instructions Recorded Confirmed Type Meclizine [Antivert] 25 mg PO QID PRN 11/26/17 09/21/21 History Aspirin 81 mg PO DAILY #0 07/02/18 09/21/21 Rx Ferrous Sulfate [Iron (65 MG 325 mg PO DAILY 10/08/18 09/21/21 History Elemental)] Folic Acid 0.4 mg PO DAILY 10/08/18 09/21/21 History L.acidoph,Paracasei, B.lactis 2 cap PO BID 10/08/18 09/21/21 History [Probiotic] Melatonin 5 mg PO HS PRN 10/08/18 09/21/21 History Potassium 99 mg PO DAILY 10/08/18 09/21/21 History Thiamine [Vitamin B-1] 100 mg PO DAILY 10/08/18 09/21/21 History Vitamin B-Complex Drops 1 ml PO BID 10/08/18 09/21/21 History Magnesium Oxide [Mag-Ox] 400 mg PO DAILY 12/06/19 09/21/21 History Gabapentin [Neurontin] 100 mg PO TID #9 cap 03/24/20 09/21/21 Rx C,E,Zinc,Copper 11/Gfjrk0g/Lut 1 cap PO DAILY 06/25/20 09/21/21 History [Ocuvite Adult 50 Plus Softgel] Cyanocobalamin (Vitamin B-12) 1,000 mcg PO DAILY 06/25/20 09/21/21 History [Vitamin B-12] Spironolactone 50 mg PO DAILY 06/25/20 09/21/21 History Vitamin E 400 unit PO DAILY 06/25/20 09/21/21 History Brimonidine Tartrate [Alphagan P 1 drop RIGHT EYE BID 11/26/20 09/21/21 History 0.2% Ophth Soln] Glucagon [Gvoke Pfs 1-Pack Syringe] 1 mg SQ ONCE PRN 11/26/20 09/21/21 History Pantoprazole Sodium [Protonix] 40 mg PO DAILY 11/26/20 09/21/21 History Hydrocortisone [Cortef] 5 mg PO HS #0 12/16/20 09/21/21 Rx Hydrocortisone [Cortef] 10 mg PO DAILY@1200 #0 12/16/20 09/21/21 Rx Hydrocortisone [Cortef] 15 mg PO DAILY #0 12/16/20 09/21/21 Rx busPIRone HCl [Buspar] 5 mg PO BID 02/04/21 09/21/21 History Nystatin 1 applic TOPICAL BID PRN 02/17/21 09/21/21 History Insulin Aspart (For Pump) [NovoLOG 0.01 unit SQ-PUMP CONTINUOUS 03/03/21 09/21/21 History (For Pump)] Cranberry Fruit Extract [Cranberry] 1,500 mg PO BID 08/15/21 09/21/21 History Escitalopram [Lexapro] 10 mg PO HS 08/15/21 09/21/21 History Liquid Multi Vitamin 30 ml PO DAILY 08/15/21 09/21/21 History Ondansetron [Zofran] 4 mg PO Q6H PRN 08/15/21 09/21/21 History Rosuvastatin Calcium [Crestor] 5 mg PO HS 08/15/21 09/21/21 History lisinopriL 40 mg PO DAILY 08/15/21 09/21/21 History Butalb/APAP/Caff 50-325-40Mg 1 tab PO TID PRN #9 tab 08/20/21 09/21/21 Rx [Fioricet 50-325-40] Cephalexin [Keflex] 250 mg PO HS #0 08/20/21 09/21/21 Rx HYDROcodone/APAP 10-325MG [[place] 1 tab PO QID PRN #12 tab 08/20/21 09/21/21 Rx 10-325] Cholestyramine (with Sugar) 4 gm PO BID PRN 09/06/21 09/21/21 History [Cholestyramine Packet] Metoprolol Succinate [Toprol XL] 100 mg PO HS 09/06/21 09/21/21 History Sucralfate [Carafate] 1 gm PO AC-TID 09/06/21 09/21/21 History Loperamide [Imodium] 2 mg PO QID PRN cap 09/10/21 09/21/21 Rx Psyllium Husk 100% [Metamucil 6 gm PO DAILY packet 09/10/21 09/21/21 Rx Packet] Cholecalciferol [Vitamin D3 (25 75 mcg PO DAILY 09/21/21 09/21/21 History Mcg = 1000 Iu)] Lactobacillus Acidoph & Bulgar 1 tab PO TID 09/21/21 09/21/21 History [Lactinex] Promethazine [Phenergan] 25 mg PO TID PRN 09/21/21 09/21/21 History Allergies Allergy/AdvReac Type Severity Reaction Status Date / Time butorphanol tartrate Allergy BLISTERS Verified 09/21/21 18:07 [From Stadol] IN MOUTH ceftriaxone [From Rocephin] Allergy Unknown Verified 09/21/21 18:07 clarithromycin [From Biaxin] Allergy Rash/Hives Verified 09/21/21 18:07 clindamycin Allergy Unknown Verified 09/21/21 18:07 codeine Allergy Rash/Hives Verified 09/21/21 18:07 ergotamine tartrate Allergy Unknown Verified 09/21/21 18:07 [From Cafergot] erythromycin base Allergy RASH, GI Verified 09/21/21 18:07 [From E-Mycin] SYMPTOMS ketorolac tromethamine Allergy Rash/Hives Verified 09/21/21 18:07 [From Toradol] liraglutide [From Victoza] Allergy Rash/Hives Verified 09/21/21 18:07 morphine Allergy Rash/Hives Verified 09/21/21 18:07 Penicillins Allergy Rash/Hives Verified 09/21/21 18:07 on upper body pentazocine lactate Allergy SEVERE Verified 09/21/21 18:07 [From Talwin] BLISTERS IN MOUTH pregabalin [From Lyrica] Allergy Rash/Hives Verified 09/21/21 18:07 propoxyphene HCl Allergy Rash/Hives Verified 09/21/21 18:07 [From Darvon] Sulfa (Sulfonamide Allergy Rash/Hives Verified 09/21/21 18:07 Antibiotics) tramadol Allergy Unknown Verified 09/21/21 18:07 monosodium glutamate [MSG] AdvReac Nausea & Verified 09/21/21 18:07 Vomiting nalbuphine HCl [From Nubain] AdvReac Nausea & Verified 09/21/21 18:07 Vomiting Physical Exam Vitals: Vital Signs Temp Pulse Pulse Resp BP BP Pulse Ox 09/22/21 19:30 98.5 F 75 16 121/68 96 09/22/21 17:46 97.5 F L 80 17 114/76 93 L 09/22/21 15:37 98.3 F 92 18 119/58 92 L 09/22/21 14:00 18 09/22/21 10:40 98.4 F 77 18 95/53 95 09/22/21 09:19 18 09/22/21 04:45 86 18 117/74 95 09/21/21 22:57 80 18 115/67 96 Intake and Output 09/22/21 09/22/21 09/22/21 06:59 14:59 22:59 Intake Total 290 Balance 290 Intake: IV 50 ceFAZolin 1,000 mg In 50 Sodium Chloride 0.9% 50 ml @ 100 mls/hr IVPB Q6H [facility] Rx#:[id number] Oral 240 Other: # Voids 1 Weight 69.4 kg General: well nourished, well developed, NAD. Vitals reviewed Eyes: PERRL, EOMI, conjunctiva normal HENT: normocephalic, mucus membranes moist Neck: supple, no JVD Lungs: normal respiratory effort, no wheezes or rales CV: Regular rate and rhythm, no murmur. Peripheral pulses 2+ Abdomen: soft, nondistended, no organomegaly. R sided abdominal tenderness to palpation Lymph: no cervical or axillary LAD Skin: warm and dry. Neuro: A&Ox3, normal mood and affect Results CBC & Chem 7: 09/21/21 17:45 09/21/21 17:12 Labs: Abnormal Lab Results - Last 24 Hours (Table) 09/21/21 09/22/21 09/22/21 Range/Units 21:42 17:06 17:08 POC Glucose (mg/dL) 555 H 560 H (75-99) mg/dL Procalcitonin 0.15 H (0.02-0.09) ng/mL 09/22/21 09/22/21 Range/Units 17:40 20:47 POC Glucose (mg/dL) 572 H 480 H (75-99) mg/dL Procalcitonin (0.02-0.09) ng/mL Microbiology - Last 24 Hours (Table) 09/21/21 17:45 Urine Culture - Preliminary Urine,Voided Thrombosis Risk Factor Assmnt - Choose All That Apply Any of the Below Risk Factors Present?: Yes Each Factor Represents 1 point: Obesity (BMI >25) Other Risk Factors: Yes Each Risk Factor Represents 2 Points: Age 61-74 years Other congenital or acquired thrombophilia - If yes, enter type in comment: No Thrombosis Risk Factor Assessment Total Risk Factor Score: 3 Thrombosis Risk Factor Assessment Level: Moderate Risk Assessment and Plan Plan: 1. R flank pain and weakness, suspected UTI. Urine culture. ID consult with history of MDR bacteria. Pt given kefzol in ED, continue with kefzol. Follow cultures 2. Acute kidney injury. 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 T2DM. Levemir 18 units. Accucheck, sliding scale 5. Migraine disorder. Continue with home medication
--- NOTE | 2021-09-22 23:35 | P.CONS ---
History of Present Illness - Reason for Consult Consult date: 09/22/21 - History of Present Illness Patient is a 71-year female with a past medical history significant for coronary tract infection and has been on multiple courses of antibiotics, patient presented to the hospital for evaluation of generalized weakness that has been going on for about 2 to 3 days before presentation to the hospital patient been complaining of having no strength no energy to get up and around and do anything patient also have decreased oral intake some nausea but no vomiting has been complaining of some dysuria but no frequency no hematuria suprapubic or flank pain with the symptom the patient presented to hospital on arrival to the ER the patient was afebrile and no fever have been recorded arteaga bsequently did have white of 15.4 with a left shift patient did have a positive UA with large leukocyte esterase 18 WBC cultures are currently pending patient started on cefazolin 1 g every 6 hours infectious disease was consulted for further management of antibiotic therapy Past Medical History Past Medical History: Diabetes Mellitus, Deep Vein Thrombosis (DVT), Fibromyalgia, Hyperlipidemia, Hypertension, Osteoarthritis (OA), Pneumonia, Renal Disease, Sleep Apnea/CPAP/BIPAP, Vascular Disorder Additional Past Medical History / Comment(s): Pt recently admitted to [facility] with R flank pain. 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, DVT R calf in 1976, cardiac murmur, occipital neuraligia, balance issues-has narrowing of vessels "in the back of my head", vertigo, varicosities, states rt shoulder torn rotator cuff History of Any Multi-Drug Resistant Organisms: ESBL, MRSA, VRE Year Discovered:: 11/25/20 ESBL;12/06/19 VRE; 03/10/11 MRSA MDRO Source:: Urine ESBL; Urine-VRE: MRSA 4th Right TOE Past Surgical History: Appendectomy, Back Surgery, Bladder Surgery, Breast Surgery, Cholecystectomy, Heart Catheterization, Hysterectomy, Orthopedic Surgery, Tonsillectomy Additional Past Surgical History / Comment(s): Lumbar fusions, bladder suspension, occipital nerve blocks, 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, R wrist/elbow nerve repair, bone removed R shoulder, 4th toe R foot partial amputation, bilateral feet/bunionectomies, R knee arthroscopies, R orbit decompression with ethmoidectomy and eyelid lift, EGD, colonoscopies, cystocopies, lithotripsy/stents, bilateral breast reduction, bilateral cataract removals, parathyroid surgery - April 2019, pain clinic procedures Past Anesthesia/Blood Transfusion Reactions: No Reported Reaction Additional Past Anesthesia/Blood Transfusion Reaction / Comm: never recieved blood Smoking Status: Never smoker - Past Family History Father Family Medical History: Coronary Artery Disease (CAD), CVA/TIA, Diabetes Mellitus, Myocardial Infarction ([place]), Pneumonia Additional Family Medical History / Comment(s): Father at the age of 78yrs from [place] and pneumonia. Mother Family Medical History: Cancer, Congestive Heart Failure (CHF) Additional Family Medical History / Comment(s): Mother had uterine cancer. She recently at the age of 96yrs old from shingles. Medications and Allergies Home Medications Medication Instructions Recorded Confirmed Type Meclizine [Antivert] 25 mg PO QID PRN 11/26/17 09/21/21 History Aspirin 81 mg PO DAILY #0 07/02/18 09/21/21 Rx Ferrous Sulfate [Iron (65 MG 325 mg PO DAILY 10/08/18 09/21/21 History Elemental)] Folic Acid 0.4 mg PO DAILY 10/08/18 09/21/21 History L.acidoph,Paracasei, B.lactis 2 cap PO BID 10/08/18 09/21/21 History [Probiotic] Melatonin 5 mg PO HS PRN 10/08/18 09/21/21 History Potassium 99 mg PO DAILY 10/08/18 09/21/21 History Thiamine [Vitamin B-1] 100 mg PO DAILY 10/08/18 09/21/21 History Vitamin B-Complex Drops 1 ml PO BID 10/08/18 09/21/21 History Magnesium Oxide [Mag-Ox] 400 mg PO DAILY 12/06/19 09/21/21 History Gabapentin [Neurontin] 100 mg PO TID #9 cap 03/24/20 09/21/21 Rx C,E,Zinc,Copper 11/Qltsv8x/Lut 1 cap PO DAILY 06/25/20 09/21/21 History [Ocuvite Adult 50 Plus Softgel] Cyanocobalamin (Vitamin B-12) 1,000 mcg PO DAILY 06/25/20 09/21/21 History [Vitamin B-12] Spironolactone 50 mg PO DAILY 06/25/20 09/21/21 History Vitamin E 400 unit PO DAILY 06/25/20 09/21/21 History Brimonidine Tartrate [Alphagan P 1 drop RIGHT EYE BID 11/26/20 09/21/21 History 0.2% Ophth Soln] Glucagon [Gvoke Pfs 1-Pack Syringe] 1 mg SQ ONCE PRN 11/26/20 09/21/21 History Pantoprazole Sodium [Protonix] 40 mg PO DAILY 11/26/20 09/21/21 History Hydrocortisone [Cortef] 5 mg PO HS #0 12/16/20 09/21/21 Rx Hydrocortisone [Cortef] 10 mg PO DAILY@1200 #0 12/16/20 09/21/21 Rx Hydrocortisone [Cortef] 15 mg PO DAILY #0 12/16/20 09/21/21 Rx busPIRone HCl [Buspar] 5 mg PO BID 02/04/21 09/21/21 History Nystatin 1 applic TOPICAL BID PRN 02/17/21 09/21/21 History Insulin Aspart (For Pump) [NovoLOG 0.01 unit SQ-PUMP CONTINUOUS 03/03/21 2 History (For Pump)] Cranberry Fruit Extract [Cranberry] 1,500 mg PO BID 08/15/21 09/21/21 History Escitalopram [Lexapro] 10 mg PO HS 08/15/21 09/21/21 History Liquid Multi Vitamin 30 ml PO DAILY 08/15/21 09/21/21 History Ondansetron [Zofran] 4 mg PO Q6H PRN 08/15/21 09/21/21 History Rosuvastatin Calcium [Crestor] 5 mg PO HS 08/15/21 09/21/21 History lisinopriL 40 mg PO DAILY 08/15/21 09/21/21 History Butalb/APAP/Caff 50-325-40Mg 1 tab PO TID PRN #9 tab 08/20/21 09/21/21 Rx [Fioricet 50-325-40] Cephalexin [Keflex] 250 mg PO HS #0 08/20/21 09/21/21 Rx HYDROcodone/APAP 10-325MG [[place] 1 tab PO QID PRN #12 tab 08/20/21 09/21/21 Rx 10-325] Cholestyramine (with Sugar) 4 gm PO BID PRN 09/06/21 09/21/21 History [Cholestyramine Packet] Metoprolol Succinate [Toprol XL] 100 mg PO HS 09/06/21 09/21/21 History Sucralfate [Carafate] 1 gm PO AC-TID 09/06/21 09/21/21 History Loperamide [Imodium] 2 mg PO QID PRN cap 09/10/21 09/21/21 Rx Psyllium Husk 100% [Metamucil 6 gm PO DAILY packet 09/10/21 09/21/21 Rx Packet] Cholecalciferol [Vitamin D3 (25 75 mcg PO DAILY 09/21/21 09/21/21 History Mcg = 1000 Iu)] Lactobacillus Acidoph & [place] 1 tab PO TID 09/21/21 09/21/21 History [Lactinex] Promethazine [Phenergan] 25 mg PO TID PRN 09/21/21 09/21/21 History Allergies Allergy/AdvReac Type Severity Reaction Status Date / Time butorphanol tartrate Allergy BLISTERS Verified 09/21/21 18:07 [From Stadol] IN MOUTH ceftriaxone [From Rocephin] Allergy Unknown Verified 09/21/21 18:07 clarithromycin [From Biaxin] Allergy Rash/Hives Verified 09/21/21 18:07 clindamycin Allergy Unknown Verified 09/21/21 18:07 codeine Allergy Rash/Hives Verified 09/21/21 18:07 ergotamine tartrate Allergy Unknown Verified 09/21/21 18:07 [From Cafergot] erythromycin base Allergy RASH, GI Verified 09/21/21 18:07 [From E-Mycin] SYMPTOMS ketorolac tromethamine Allergy Rash/Hives Verified 09/21/21 18:07 [From Toradol] liraglutide [From Victoza] Allergy Rash/Hives Verified 09/21/21 18:07 morphine Allergy Rash/Hives Verified 09/21/21 18:07 Penicillins Allergy Rash/Hives Verified 09/21/21 18:07 on upper body pentazocine lactate Allergy SEVERE Verified 09/21/21 18:07 [From Talwin] BLISTERS IN MOUTH pregabalin [From Lyrica] Allergy Rash/Hives Verified 09/21/21 18:07 propoxyphene HCl Allergy Rash/Hives Verified 09/21/21 18:07 [From Darvon] Sulfa (Sulfonamide Allergy Rash/Hives Verified 09/21/21 18:07 Antibiotics) tramadol Allergy Unknown Verified 09/21/21 18:07 monosodium glutamate [MSG] AdvReac Nausea & Verified 09/21/21 18:07 Vomiting nalbuphine HCl [From Nubain] AdvReac Nausea & Verified 09/21/21 18:07 Vomiting Physical Exam Vitals: Vital Signs Temp Pulse Pulse Resp BP BP Pulse Ox 09/22/21 10:40 98.4 F 77 18 95/53 95 09/22/21 09:19 18 09/22/21 04:45 86 18 117/74 95 09/21/21 22:57 80 18 115/67 96 09/21/21 18:30 86 16 125/79 97 09/21/21 16:26 98.8 F 83 18 103/74 93 L Intake and Output 09/21/21 09/22/21 09/22/21 22:59 06:59 14:59 Other: Weight 69.4 kg 69.4 kg Results CBC & Chem 7: 09/21/21 17:45 09/21/21 17:12 Labs: Abnormal Lab Results - Last 24 Hours (Table) 09/21/21 09/21/21 09/21/21 Range/Units 17:12 17:12 17:45 WBC (3.8-10.6) k/uL Hct (34.0-46.0) % Neutrophils # (1.3-7.7) k/uL APTT 16.4 L (22.0-30.0) sec Sodium 135 L (137-145) mmol/L BUN 26 H (7-17) mg/dL Creatinine 1.19 H (0.52-1.04) mg/dL Glucose 238 H (74-99) mg/dL Total Bilirubin 1.5 H (0.2-1.3) mg/dL Total Protein 6.2 L (6.3-8.2) g/dL Procalcitonin (0.02-0.09) ng/mL Urine Appearance Cloudy H (Clear) Urine WBC 18 H (0-5) /hpf Ur Squamous Epith Cells 12 H (0-4) /hpf Urine Bacteria Rare H (None) /hpf Hyaline Casts 7 H (0-2) /lpf Urine Mucus Rare H (None) /hpf 09/21/21 09/21/21 Range/Units 17:45 21:42 WBC 15.4 H (3.8-10.6) k/uL Hct 46.1 H (34.0-46.0) % Neutrophils # 13.4 H (1.3-7.7) k/uL APTT (22.0-30.0) sec Sodium (137-145) mmol/L BUN (7-17) mg/dL Creatinine (0.52-1.04) mg/dL Glucose (74-99) mg/dL Total Bilirubin (0.2-1.3) mg/dL Total Protein (6.3-8.2) g/dL Procalcitonin 0.15 H (0.02-0.09) ng/mL Urine Appearance (Clear) Urine WBC (0-5) /hpf Ur Squamous Epith Cells (0-4) /hpf Urine Bacteria (None) /hpf Hyaline Casts (0-2) /lpf Urine Mucus (None) /hpf Microbiology - Last 24 Hours (Table) 09/21/21 17:45 Urine Culture - Preliminary Urine,Voided Assessment and Plan (1) UTI (urinary tract infection) Current Visit: Yes Status: Acute Code(s): N39.0 - URINARY TRACT INFECTION, SITE NOT SPECIFIED SNOMED Code(s): 34206280 Plan: 1patient presented to hospital with generalized weakness no energy has been complaining of dysuria and respiratory have elevated white count and a positive UA concerning for a symptomatic urinary tract infection in this patient culture have been positive for multiple pathogen including ESBL E. coli and will need to call for that pathogen while waiting for the culture to finalize. 2patient with multiple antibiotic allergies that would limit the number of antibiotics safe to use. 3discontinue cefazolin. 4start the patient on Invanz 1 g daily. We will follow on clinical condition and cultures to further adjust medication if needed Thank you for this consultation will follow this patient along with you Time with Patient: Greater than 30
[2021-09-23] MEDS: HYDROmorphone 0.5 MG/0.5 ML SYRINGE IVP PRN ×2 (00:33→08:32)
[2021-09-23] MEDS: ERTAPENEM 1 GM in SODIUM CHLORIDE 0.9% 50 ML IVPB SCH ×2 (00:34→23:09)
[2021-09-23 01:44] LABS: Glucose,Whole Blood 223 mg/dL (75-99)
[2021-09-23 06:54] LABS: Glucose,Whole Blood 150 mg/dL (75-99)
[2021-09-23] MEDS ORDERED: INSULIN ASPART (NovoLOG) 100 UNIT/ML VIAL SQ SCH (07:30)
[2021-09-23] MEDS: INSULIN ASPART (NovoLOG) 100 UNIT/ML VIAL SQ SCH ×4 (08:26→20:50)
[2021-09-23] MEDS: SUCRALFATE 1 GM TAB PO SCH ×3 (08:27→15:58)
[2021-09-23] MEDS: PANTOPRAZOLE 40 MG TABLET PO SCH (08:27)
[2021-09-23] MEDS: FERROUS SULFATE 325 MG TAB PO SCH (08:28)
[2021-09-23] MEDS: GABAPENTIN 100 MG CAP PO SCH ×3 (08:28→20:49)
[2021-09-23] MEDS: CHOLECALCIFEROL 25 MCG (1000 IU) TABLET PO SCH (08:28)
[2021-09-23] MEDS: ASPIRIN 81 MG PO SCH (08:28)
[2021-09-23] MEDS: busPIRone HCl 5 MG TAB PO SCH ×2 (08:28→20:48)
[2021-09-23] MEDS: LACTOBACILLUS ACIDOPH & BULGAR 1 EACH PACKET PO SCH ×3 (08:29→20:49)
[2021-09-23] MEDS: lisinopriL 20 MG TAB PO SCH (08:29)
[2021-09-23] MEDS: HYDROCORTISONE 10 MG TAB PO SCH ×3 (08:29→20:49)
[2021-09-23] MEDS: PSYLLIUM HUSK 100% 6 GM PACKET PO SCH (08:30)
[2021-09-23] MEDS: MAGNESIUM OXIDE 400 MG TAB PO SCH (08:30)
[2021-09-23] MEDS: THIAMINE 100 MG TAB PO SCH (08:31)
[2021-09-23] MEDS: SPIRONOLACTONE 25 MG TAB PO SCH (08:31)
[2021-09-23] MEDS: VIT A,C & E-LUTEIN-MINERALS 1 EACH TAB PO SCH (08:31)
[2021-09-23] MEDS: VITAMIN E (DL,TOCOPHERYL ACET) 400 UNIT (180 MG) CAP PO SCH (08:31)
[2021-09-23] MEDS: HYDROcodone/APAP 10-325MG 1 EACH TAB PO PRN ×3 (10:27→19:17)
[2021-09-23] MEDS: BRIMONIDINE TARTRATE 0.2% DROPS 5 ML BTL RIGHT EYE SCH ×2 (10:27→20:49)
[2021-09-23 12:02] LABS: Glucose,Whole Blood 208 mg/dL (75-99)
[2021-09-23 15:34] VITALS: BMI 29.9
--- NOTE | 2021-09-23 15:42 | P.PN ---
Subjective Progress Note Date: 09/23/21 Melissa Pena is a 70 yo F who was recently admitted for recurrent cystitis and discharged about 2 weeks ago who presents for recurrence of R flank pain as well as weakness and nausea over the psat few days. She has a PMH of chronic cystitis with history of MDR bacteria, on keflex prophylactically, adrenal insufficency, T2DM, migraine, chronic pain. She states that since her discharge she initally did well but then began to feel weak and shaky in the past few days. On presentation, vitals stable, WBC 15k, Cr 1.2, baselin 0.7, procalcitonin 0.15, UA with bacteria present. CT abd/pelvis no acute process. 09/23/2021 hearing cultures reporting 10-49,000 gram-negative bacilli .antibiotics adjusted to intensive as per infectious disease. Afebrile. Good diet intake, consuming 100% with no nausea or vomiting. Right flank pain continues. Reports burning sensation with urinating without suprapubic discomfort. Denies chest pain, palpitations or shortness of breath. Maintaining O2 sats in the high 90s on 2 L nasal cannula. Denies lightheadedness dizziness or focal deficits. Denies headache. Blood sugars improving, Accu-Chek this morning currently at 150. Objective - Vital Signs Vital signs: Vital Signs Temp 98.6 F 09/23/21 14:20 Pulse 63 09/23/21 14:20 Resp 16 09/23/21 07:00 BP 104/64 09/23/21 14:20 Pulse Ox 97 09/23/21 14:20 Intake & Output 09/22/21 09/23/21 09/23/21 18:59 06:59 18:59 Intake Total 290 Balance 290 Weight 69.4 kg Intake: IV 50 ceFAZolin 1,000 mg In 50 Sodium Chloride 0.9% 50 ml @ 100 mls/hr IVPB Q6H [facility] Rx#:[id number] Oral 240 Other: Voiding Method Bedpan # Voids 1 2 2 - Exam General: Sitting up in chair, NAD. Vitals reviewed Eyes: PERRL, EOMI, conjunctiva normal HENT: normocephalic, mucus membranes moist Neck: supple, no JVD Lungs: normal respiratory effort, no wheezes or rales CV: Regular rate and rhythm, no murmur. Peripheral pulses 2+ Abdomen: soft, nondistended, no organomegaly. R sided abdominal tenderness to palpation Skin: warm and dry. Neuro: A&Ox3, normal mood and affect - Labs CBC & Chem 7: 09/21/21 17:45 09/21/21 17:12 Labs: Abnormal Lab Results - Last 24 Hours (Table) 09/22/21 09/22/21 09/22/21 Range/Units 17:06 17:08 17:40 POC Glucose (mg/dL) 555 H 560 H 572 H (75-99) mg/dL 09/22/21 09/23/21 09/23/21 Range/Units 20:47 01:43 06:53 POC Glucose (mg/dL) 480 H 223 H 150 H (75-99) mg/dL 09/23/21 Range/Units 12:01 POC Glucose (mg/dL) 208 H (75-99) mg/dL Microbiology - Last 24 Hours (Table) 09/21/21 17:45 Urine Culture - Preliminary Urine,Voided Gram Neg Bacilli Assessment and Plan Assessment: Right flank pain with increased generalized weakness, suspected recurrent UTI in a patient with history of MDR bacteria, infectious disease following Acute renal failure [place]'s disease, currently maintained on stress dosed Cortef Diabetes mellitus type 2 Migraine disorder Plan: Continue current medication regime ,monitoring and symptomatic treatment. Pain management, increased frequency of [place]. Antibiotics of Invanz as per ID. At discharge considering a different prophylactic antibiotic. Close monitoring of renal function with repeat labs ordered for a.m. Close monitoring of Accu-Cheks, steroid-induced hyperglycemia-patient has her own insulin pump. Increase ambulation as tolerated. The impression and plan of care has been dictated as directed. : I performed a history and examination of this patient, discussed the same with the dictator. I agree with the dictator's note ,documented as a scribe. Any additional findings or plans will be noted.
[2021-09-23 16:22] LABS: Glucose,Whole Blood 376 mg/dL (75-99)
[2021-09-23 20:38] LABS: Glucose,Whole Blood 381 mg/dL (75-99)
[2021-09-23] MEDS: Insulin Aspart (For Pump) 100 UNIT/ML VIAL SQ-PUMP SCH (20:42)
[2021-09-23] MEDS: ATORVASTATIN 10 MG TAB PO SCH (20:48)
[2021-09-23] MEDS: ESCITALOPRAM 10 MG TAB PO SCH (20:49)
[2021-09-23] MEDS: METOPROLOL SUCCINATE (ER) 100 MG TAB.ER.24H PO SCH (20:49)
[2021-09-23] MEDS: INSULIN DETEMIR (LEVEMIR) 100 UNIT/ML SYR SQ SCH (20:50)
[2021-09-24] MEDS: HYDROcodone/APAP 10-325MG 1 EACH TAB PO PRN ×5 (01:10→21:49)
[2021-09-24 02:18] LABS: Glucose,Whole Blood 208 mg/dL (75-99)
[2021-09-24 06:53] LABS: Glucose,Whole Blood 164 mg/dL (75-99)
[2021-09-24] MEDS: PSYLLIUM HUSK 100% 6 GM PACKET PO SCH (08:14)
[2021-09-24] MEDS: LACTOBACILLUS ACIDOPH & BULGAR 1 EACH PACKET PO SCH ×3 (08:14→21:44)
[2021-09-24] MEDS: INSULIN ASPART (NovoLOG) 100 UNIT/ML VIAL SQ SCH ×4 (08:14→21:42)
[2021-09-24] MEDS: FERROUS SULFATE 325 MG TAB PO SCH (08:15)
[2021-09-24] MEDS: SPIRONOLACTONE 25 MG TAB PO SCH (08:15)
[2021-09-24] MEDS: ASPIRIN 81 MG PO SCH (08:15)
[2021-09-24] MEDS: MAGNESIUM OXIDE 400 MG TAB PO SCH (08:15)
[2021-09-24] MEDS: PANTOPRAZOLE 40 MG TABLET PO SCH (08:15)
[2021-09-24] MEDS: CHOLECALCIFEROL 25 MCG (1000 IU) TABLET PO SCH (08:15)
[2021-09-24] MEDS: THIAMINE 100 MG TAB PO SCH (08:16)
[2021-09-24] MEDS: lisinopriL 20 MG TAB PO SCH (08:16)
[2021-09-24] MEDS: SUCRALFATE 1 GM TAB PO SCH ×3 (08:16→16:04)
[2021-09-24] MEDS: GABAPENTIN 100 MG CAP PO SCH ×3 (08:16→21:43)
[2021-09-24] MEDS: busPIRone HCl 5 MG TAB PO SCH ×2 (08:16→21:42)
[2021-09-24] MEDS: VITAMIN E (DL,TOCOPHERYL ACET) 400 UNIT (180 MG) CAP PO SCH (08:17)
[2021-09-24] MEDS: HYDROCORTISONE 10 MG TAB PO SCH ×3 (08:17→21:42)
[2021-09-24] MEDS: BRIMONIDINE TARTRATE 0.2% DROPS 5 ML BTL RIGHT EYE SCH ×2 (08:18→21:43)
[2021-09-24] MEDS: VIT A,C & E-LUTEIN-MINERALS 1 EACH TAB PO SCH (08:18)
[2021-09-24 10:36] LABS: Basophils # (A) 0.02 X 10*3/uL (0.00-0.10); Basophils % (A) 0.2 %; Eosinophils # (A) 0.24 X 10*3/uL (0.04-0.35); Eosinophils % (A) 2.3 %; HCT 37.7 % (37.2-46.3); HGB 11.7 g/dL (12.0-15.0); Immature Grans, Automated 0.7 %; Lymphocytes # (A) 1.31 X 10*3/uL (0.90-5.00); Lymphocytes % (A) 12.6 %; MCH 29.3 pg (27.0-32.0); MCV 94.5 fL (80.0-97.0); Mean Platelet Volume 10.6 fL (9.5-12.2); Monocytes # (A) 0.89 X 10*3/uL (0.20-1.00); Monocytes % (A) 8.5 %; NRBC Per 100 WBC 0 /100 WBCS (0.0-0.0); Neutrophils % (A) 75.7 %; Platelet Count 191 X 10*3/uL (140-440); RBC 3.99 X 10*6/uL (4.10-5.20); WBC 10.43 X 10*3/uL (4.50-10.00)
[2021-09-24 10:40] LABS: Anion Gap 11.3 mmol/L (10.00-18.00); BUN/Creat Ratio 39.89 Ratio (12.00-20.00); Blood Urea Nitrogen 35.9 mg/dL (9.0-27.0); Calcium 8.9 mg/dL (8.7-10.3); Carbon Dioxide 26.7 mmol/L (20.0-27.5); Non-African American GFR(CKD) 63.9 (60.0-200.0); Potassium 4.6 mmol/L (3.5-5.5)
[2021-09-24 11:21] LABS: Glucose,Whole Blood 168 mg/dL (75-99)
[2021-09-24] MEDS: HYDROmorphone 0.5 MG/0.5 ML SYRINGE IVP PRN ×2 (14:53→19:18)
--- NOTE | 2021-09-24 15:29 | P.PN ---
Subjective Progress Note Date: 09/23/21 Principal diagnosis: Urinary tract infection Patient is a 71-year-old female with past medical history significant for recurrent him to tract infection presenting to the hospital generalized weakness and no energy did have some urinary burning positive and concerning for symptomatic urinary tract infection. On today's evaluation that is 09/23/2021, the patient denies having any fever or any chills, the patient is feeling slightly better, denies any chest pain shortn ess of breath or cough no abdominal pain or diarrhea Objective - Vital Signs Vital signs: Vital Signs Temp 97.6 F 09/23/21 07:00 Pulse 57 L 09/23/21 07:00 Resp 16 09/23/21 07:00 BP 113/65 09/23/21 07:00 Pulse Ox 98 09/23/21 07:00 Intake & Output 09/22/21 09/23/21 09/23/21 18:59 06:59 18:59 Intake Total 290 Balance 290 Weight 69.4 kg Intake: IV 50 ceFAZolin 1,000 mg In 50 Sodium Chloride 0.9% 50 ml @ 100 mls/hr IVPB Q6H [facility] Rx#:[id number] Oral 240 Other: Voiding Method Bedpan # Voids 1 2 2 - Exam GENERAL DESCRIPTION: An elderly female lying in bed in no distress RESPIRATORY SYSTEM: Unlabored breathing , decreased breath sounds at bases HEART: S1 S2 regular rate and rhythm , ABDOMEN: Soft , no tenderness EXTREMITIES: No edema feett - Labs CBC & Chem 7: 09/24/21 07:46 09/24/21 07:46 Labs: Abnormal Lab Results - Last 24 Hours (Table) 09/22/21 09/22/21 09/22/21 Range/Units 17:06 17:08 17:40 POC Glucose (mg/dL) 555 H 560 H 572 H (75-99) mg/dL 09/22/21 09/23/21 09/23/21 Range/Units 20:47 01:43 06:53 POC Glucose (mg/dL) 480 H 223 H 150 H (75-99) mg/dL 09/23/21 Range/Units 12:01 POC Glucose (mg/dL) 208 H (75-99) mg/dL Assessment and Plan (1) UTI (urinary tract infection) Current Visit: Yes Status: Acute Code(s): N39.0 - URINARY TRACT INFECTION, SITE NOT SPECIFIED SNOMED Code(s): 44909034 Plan: 1patient presented to hospital with generalized weakness no energy has been complaining of dysuria and respiratory have elevated white count and a positive UA concerning for a symptomatic urinary tract infection in this patient culture have been positive for multiple pathogen including ESBL E. coli and will need to cover for that pathogen while waiting for the culture to finalize. 2patient with multiple antibiotic allergies that would limit the number of antibiotics safe to use. 3patient to continue with Invanz 1 g daily while waiting for the cultures to be finalize. Time with Patient: Less than 30
--- NOTE | 2021-09-24 15:31 | P.PN ---
Subjective Progress Note Date: 09/24/21 Principal diagnosis: Urinary tract infection Patient is a 71-year-old female with past medical history significant for recurrent him to tract infection presenting to the hospital generalized weakness and no energy did have some urinary burning positive and concerning for symptomatic urinary tract infection. On today's evaluation that is 09/24/2021, the patient remains to be afebrile, the patient is complaining of flank pain and on the Dilaudid to be restarted, no chest pain shortness of breath or cough no abdominal pain or diarrhea Objective - Vital Signs Vital signs: Vital Signs Temp 98.5 F 09/24/21 07:53 Pulse 54 L 09/24/21 07:53 Resp 18 09/24/21 07:53 BP 108/64 09/24/21 07:53 Pulse Ox 96 09/24/21 07:53 Intake & Output 09/23/21 09/24/21 09/24/21 18:59 06:59 18:59 Weight 69.4 kg Other: Voiding Method Toilet Toilet # Voids 2 - Exam GENERAL DESCRIPTION: An elderly female lying in bed in no distress RESPIRATORY SYSTEM: Unlabored breathing , decreased breath sounds at bases HEART: S1 S2 regular rate and rhythm , ABDOMEN: Soft , no tenderness EXTREMITIES: No edema feett - Labs CBC & Chem 7: 09/24/21 07:46 09/24/21 07:46 Labs: Abnormal Lab Results - Last 24 Hours (Table) 09/23/21 09/23/21 09/24/21 Range/Units 16:21 20:36 02:17 WBC (4.50-10.00) X 10*3/uL RBC (4.10-5.20) X 10*6/uL Hgb (12.0-15.0) g/dL MCHC (32.0-37.0) g/dL Immature Gran # (0.00-0.04) X 10*3/uL Neutrophils # (1.80-7.70) X 10*3/uL BUN (9.0-27.0) mg/dL BUN/Creatinine Ratio (12.00-20.00) Ratio Glucose (70-110) mg/dL POC Glucose (mg/dL) 376 H 381 H 208 H (75-99) mg/dL 09/24/21 09/24/21 09/24/21 Range/Units 06:51 07:46 07:46 WBC 10.43 H (4.50-10.00) X 10*3/uL RBC 3.99 L (4.10-5.20) X 10*6/uL Hgb 11.7 L (12.0-15.0) g/dL MCHC 31.0 L (32.0-37.0) g/dL Immature Gran # 0.07 H (0.00-0.04) X 10*3/uL Neutrophils # 7.90 H (1.80-7.70) X 10*3/uL BUN 35.9 H (9.0-27.0) mg/dL BUN/Creatinine Ratio 39.89 H (12.00-20.00) Ratio Glucose 149 H (70-110) mg/dL POC Glucose (mg/dL) 164 H (75-99) mg/dL 09/24/21 Range/Units 11:19 WBC (4.50-10.00) X 10*3/uL RBC (4.10-5.20) X 10*6/uL Hgb (12.0-15.0) g/dL MCHC (32.0-37.0) g/dL Immature Gran # (0.00-0.04) X 10*3/uL Neutrophils # (1.80-7.70) X 10*3/uL BUN (9.0-27.0) mg/dL BUN/Creatinine Ratio (12.00-20.00) Ratio Glucose (70-110) mg/dL POC Glucose (mg/dL) 168 H (75-99) mg/dL Microbiology - Last 24 Hours (Table) 09/21/21 17:45 Urine Culture - Final Urine,Voided Citrobacter freundii Assessment and Plan (1) UTI (urinary tract infection) Current Visit: Yes Status: Acute Code(s): N39.0 - URINARY TRACT INFECTION, SITE NOT SPECIFIED SNOMED Code(s): 21732803 Plan: 1patient presented to hospital with generalized weakness no energy has been complaining of dysuria and respiratory have elevated white count and a positive UA concerning for a symptomatic urinary tract infection in this patient culture have been positive for multiple pathogen including ESBL E. coli and will need to cover for that pathogen while waiting for the culture to finalize. 2patient with multiple antibiotic allergies that would limit the number of antibiotics safe to use. 3patient urine has been finalize with Citrobacter however the patient do have multiple antibiotic ALLERGIES hence recommend continuing with Invanz 1 g daily for another week to finish a course of therapy Time with Patient: Less than 30
[2021-09-24 16:01] LABS: Glucose,Whole Blood 319 mg/dL (75-99)
[2021-09-24 21:13] LABS: Glucose,Whole Blood 390 mg/dL (75-99)
[2021-09-24] MEDS: ESCITALOPRAM 10 MG TAB PO SCH (21:42)
[2021-09-24] MEDS: ATORVASTATIN 10 MG TAB PO SCH (21:42)
[2021-09-24] MEDS: INSULIN DETEMIR (LEVEMIR) 100 UNIT/ML SYR SQ SCH (21:43)
[2021-09-24] MEDS: METOPROLOL SUCCINATE (ER) 100 MG TAB.ER.24H PO SCH (21:43)
[2021-09-24] MEDS: Insulin Aspart (For Pump) 100 UNIT/ML VIAL SQ-PUMP SCH (23:05)
--- NOTE | 2021-09-24 23:11 | P.PN ---
Subjective Progress Note Date: 09/24/21 Melissa Pena is a 70 yo F who was recently admitted for recurrent cystitis and discharged about 2 weeks ago who presents for recurrence of R flank pain as well as weakness and nausea over the psat few days. She has a PMH of chronic cystitis with history of MDR bacteria, on keflex prophylactically, adrenal insufficency, T2DM, migraine, chronic pain. She states that since her discharge she initally did well but then began to feel weak and shaky in the past few days. On presentation, vitals stable, WBC 15k, Cr 1.2, baselin 0.7, procalcitonin 0.15, UA with bacteria present. CT abd/pelvis no acute process. 09/23/2021 hearing cultures reporting 10-49,000 gram-negative bacilli .antibiotics adjusted to intensive as per infectious disease. Afebrile. Good diet intake, consuming 100% with no nausea or vomiting. Right flank pain continues. Reports burning sensation with urinating without suprapubic discomfort. Denies chest pain, palpitations or shortness of breath. Maintaining O2 sats in the high 90s on 2 L nasal cannula. Denies lightheadedness dizziness or focal deficits. Denies headache. Blood sugars improving, Accu-Chek this morning currently at 150. 09/24/2021 Pt remains afebrile, no nausea, vomiting, diarrhea. Continues to complain of R flank pain. Her BP is stable, denies shortness of breath. ID recommending 7 day course of ertapenem. Objective - Vital Signs Vital signs: Vital Signs Temp 97.8 F 09/24/21 19:11 Pulse 63 09/24/21 19:11 Resp 15 09/24/21 19:11 BP 147/77 09/24/21 19:11 Pulse Ox 100 09/24/21 19:11 Intake & Output 09/24/21 09/24/21 09/25/21 06:59 18:59 06:59 Other: Voiding Method Toilet Toilet # Voids 4 - Exam General: well nourished, well developed, NAD. Vitals reviewed Lungs: normal respiratory effort, no wheezes or rales CV: Regular rate and rhythm, no murmur. Peripheral pulses 2+ Abdomen: soft, nondistended, no organomegaly Skin: warm and dry. - Labs CBC & Chem 7: 09/24/21 07:46 09/24/21 07:46 Labs: Abnormal Lab Results - Last 24 Hours (Table) 09/24/21 09/24/21 09/24/21 Range/Units 02:17 06:51 07:46 WBC 10.43 H (4.50-10.00) X 10*3/uL RBC 3.99 L (4.10-5.20) X 10*6/uL Hgb 11.7 L (12.0-15.0) g/dL MCHC 31.0 L (32.0-37.0) g/dL Immature Gran # 0.07 H (0.00-0.04) X 10*3/uL Neutrophils # 7.90 H (1.80-7.70) X 10*3/uL BUN (9.0-27.0) mg/dL BUN/Creatinine Ratio (12.00-20.00) Ratio Glucose (70-110) mg/dL POC Glucose (mg/dL) 208 H 164 H (75-99) mg/dL 09/24/21 09/24/21 09/24/21 Range/Units 07:46 11:19 15:59 WBC (4.50-10.00) X 10*3/uL RBC (4.10-5.20) X 10*6/uL Hgb (12.0-15.0) g/dL MCHC (32.0-37.0) g/dL Immature Gran # (0.00-0.04) X 10*3/uL Neutrophils # (1.80-7.70) X 10*3/uL BUN 35.9 H (9.0-27.0) mg/dL BUN/Creatinine Ratio 39.89 H (12.00-20.00) Ratio Glucose 149 H (70-110) mg/dL POC Glucose (mg/dL) 168 H 319 H (75-99) mg/dL 09/24/21 Range/Units 21:11 WBC (4.50-10.00) X 10*3/uL RBC (4.10-5.20) X 10*6/uL Hgb (12.0-15.0) g/dL MCHC (32.0-37.0) g/dL Immature Gran # (0.00-0.04) X 10*3/uL Neutrophils # (1.80-7.70) X 10*3/uL BUN (9.0-27.0) mg/dL BUN/Creatinine Ratio (12.00-20.00) Ratio Glucose (70-110) mg/dL POC Glucose (mg/dL) 390 H (75-99) mg/dL Microbiology - Last 24 Hours (Table) 09/21/21 17:45 Urine Culture - Final Urine,Voided Citrobacter freundii Assessment and Plan Plan: Continue with current regimen, IV invanz and stress dose cortef. pain control. Midline placed today. Discharge expected 24-48 hours with IV abx
[2021-09-25] MEDS: ERTAPENEM 1 GM in SODIUM CHLORIDE 0.9% 50 ML IVPB SCH (00:03)
[2021-09-25 03:04] LABS: Glucose,Whole Blood 228 mg/dL (75-99)
[2021-09-25] MEDS: HYDROmorphone 0.5 MG/0.5 ML SYRINGE IVP PRN (03:05)
[2021-09-25 06:54] LABS: Glucose,Whole Blood 166 mg/dL (75-99)
[2021-09-25] MEDS: LACTOBACILLUS ACIDOPH & BULGAR 1 EACH PACKET PO SCH ×2 (07:01→16:36)
[2021-09-25] MEDS: PSYLLIUM HUSK 100% 6 GM PACKET PO SCH (07:01)
[2021-09-25] MEDS: THIAMINE 100 MG TAB PO SCH (07:02)
[2021-09-25] MEDS: HYDROCORTISONE 10 MG TAB PO SCH ×2 (07:02→11:56)
[2021-09-25] MEDS: GABAPENTIN 100 MG CAP PO SCH ×2 (07:02→16:18)
[2021-09-25] MEDS: lisinopriL 20 MG TAB PO SCH (07:02)
[2021-09-25] MEDS: HYDROcodone/APAP 10-325MG 1 EACH TAB PO PRN ×3 (07:02→16:18)
[2021-09-25] MEDS: MAGNESIUM OXIDE 400 MG TAB PO SCH (07:02)
[2021-09-25] MEDS: SUCRALFATE 1 GM TAB PO SCH ×2 (07:02→11:56)
[2021-09-25] MEDS: VITAMIN E (DL,TOCOPHERYL ACET) 400 UNIT (180 MG) CAP PO SCH (07:02)
[2021-09-25] MEDS: FERROUS SULFATE 325 MG TAB PO SCH (07:03)
[2021-09-25] MEDS: ASPIRIN 81 MG PO SCH (07:03)
[2021-09-25] MEDS: PANTOPRAZOLE 40 MG TABLET PO SCH (07:03)
[2021-09-25] MEDS: busPIRone HCl 5 MG TAB PO SCH (07:03)
[2021-09-25] MEDS: VIT A,C & E-LUTEIN-MINERALS 1 EACH TAB PO SCH (07:03)
[2021-09-25] MEDS: INSULIN ASPART (NovoLOG) 100 UNIT/ML VIAL SQ SCH ×2 (07:03→11:56)
[2021-09-25] MEDS: SPIRONOLACTONE 25 MG TAB PO SCH (07:03)
[2021-09-25] MEDS: CHOLECALCIFEROL 25 MCG (1000 IU) TABLET PO SCH (07:03)
[2021-09-25] MEDS: BRIMONIDINE TARTRATE 0.2% DROPS 5 ML BTL RIGHT EYE SCH (07:10)
[2021-09-25 07:30] VITALS: PULSE 51
[2021-09-25 11:24] LABS: Glucose,Whole Blood 172 mg/dL (75-99)
--- NOTE | 2021-09-25 15:14 | P.DS ---
Providers Date of admission: 09/22/21 12:52 Expected date of discharge: 09/25/21 Attending physician: Andrew Gonsales MD Consults: 09/22/21 09:20 Consult Physician Routine Consulting Provider: Chalino Osman Consult Reason/Comments: acute renal failure. UTI Do you want consulting provider notified?: Yes Primary care physician: Andrew Gonsales MD Hospital Course: 71-year female with a past medical history significant for coronary tract infection and has been on multiple courses of antibiotics, patient presented to the hospital for evaluation of generalized weakness that has been going on for about 2 to 3 days before presentation to the hospital patient been complaining of having no strength no energy to get up and around and do anything patient also have decreased oral intake some nausea but no vomiting has been complaining of some dysuria but no frequency no hematuria suprapubic or flank pain with the symptom the patient presented to hospital on arrival to the ER the patient was afebrile and no fever have been recorded subsequently did have white of 15.4 with a left shift patient did have a positive UA with large leukocyte esterase 18 WBC cultures are currently pending patient started on cefazolin 1 g every 6 hours infectious disease was consulted for further management of antibiotic therapy symptomatic urinary tract infection in this patient culture have been positive for multiple pathogen including ESBL E. coli. patient with multiple antibiotic allergies that would limit the number of antibiotics safe to use. discontinue cefazolin. start the patient on Invanz 1 g daily. Urine culture finalized with Citrobacter however the patient do have multiple antibiotic ALLERGIES hence recommend continuing with Invanz 1 g daily for another week to finish a course of therapy Patient Condition at Discharge: Fair Plan - Discharge Summary Discharge Rx Participant: No New Discharge Prescriptions: New Ertapenem [INVanz] 1 gm IVPB Q24H 7 Days #7 each Continue Meclizine [Antivert] 25 mg PO QID PRN PRN Reason: Vertigo Aspirin 81 mg PO DAILY #0 Ferrous Sulfate [Iron (65 MG Elemental)] 325 mg PO DAILY Vitamin B-Complex Drops 1 ml PO BID Thiamine [Vitamin B-1] 100 mg PO DAILY Folic Acid 0.4 mg PO DAILY L.acidoph,Paracasei, B.lactis [Probiotic] 2 cap PO BID Melatonin 5 mg PO HS PRN PRN Reason: Insomnia Potassium 99 mg PO DAILY Magnesium Oxide [Mag-Ox] 400 mg PO DAILY Gabapentin [Neurontin] 100 mg PO TID #9 cap Spironolactone 50 mg PO DAILY C,E,Zinc,Copper 11/Pnagf4u/Lut [Ocuvite Adult 50 Plus Softgel] 1 cap PO DAILY Cyanocobalamin (Vitamin B-12) [Vitamin B-12] 1,000 mcg PO DAILY Vitamin E 400 unit PO DAILY Brimonidine Tartrate [Alphagan P 0.2% Ophth Soln] 1 drop RIGHT EYE BID Pantoprazole Sodium [Protonix] 40 mg PO DAILY Hydrocortisone [Cortef] 5 mg PO HS #0 Hydrocortisone [Cortef] 10 mg PO DAILY@1200 #0 Hydrocortisone [Cortef] 15 mg PO DAILY #0 Liquid Multi Vitamin 30 ml PO DAILY Butalb/APAP/Caff 50-325-40Mg [Fioricet 50-325-40] 1 tab PO TID PRN #9 tab PRN Reason: Migraine Headache HYDROcodone/APAP 10-325MG [[place] 10-325] 1 tab PO QID PRN #12 tab PRN Reason: Pain Sucralfate [Carafate] 1 gm PO AC-TID Loperamide [Imodium] 2 mg PO QID PRN cap PRN Reason: Diarrhea Psyllium Husk 100% [Metamucil Packet] 6 gm PO DAILY packet Cholecalciferol [Vitamin D3 (25 Mcg = 1000 Iu)] 75 mcg PO DAILY Lactobacillus Acidoph & Bulgar [Lactinex] 1 tab PO TID Promethazine [Phenergan] 25 mg PO TID PRN PRN Reason: Nausea Glucagon [Gvoke Pfs 1-Pack Syringe] 1 mg SQ ONCE PRN PRN Reason: severe hypoglycemia busPIRone HCl [Buspar] 5 mg PO BID Nystatin 1 applic TOPICAL BID PRN PRN Reason: Skin Irritation Insulin Aspart (For Pump) [NovoLOG (For Pump)] 0.01 unit SQ-PUMP CONTINUOUS Cranberry Fruit Extract [Cranberry] 1,500 mg PO BID Escitalopram [Lexapro] 10 mg PO HS lisinopriL 40 mg PO DAILY Ondansetron [Zofran] 4 mg PO Q6H PRN PRN Reason: Nausea Rosuvastatin Calcium [Crestor] 5 mg PO HS Cephalexin [Keflex] 250 mg PO HS #0 Metoprolol Succinate [Toprol XL] 100 mg PO HS Cholestyramine (with Sugar) [Cholestyramine Packet] 4 gm PO BID PRN PRN Reason: Diarrhea Discharge Medication List Meclizine [Antivert] 25 mg PO QID PRN 11/26/17 [History] Aspirin 81 mg PO DAILY #0 07/02/18 [Rx] Ferrous Sulfate [Iron (65 MG Elemental)] 325 mg PO DAILY 10/08/18 [History] Folic Acid 0.4 mg PO DAILY 10/08/18 [History] L.acidoph,Paracasei, B.lactis [Probiotic] 2 cap PO BID 10/08/18 [History] Melatonin 5 mg PO HS PRN 10/08/18 [History] Potassium 99 mg PO DAILY 10/08/18 [History] Thiamine [Vitamin B-1] 100 mg PO DAILY 10/08/18 [History] Vitamin B-Complex Drops 1 ml PO BID 10/08/18 [History] Magnesium Oxide [Mag-Ox] 400 mg PO DAILY 12/06/19 [History] Gabapentin [Neurontin] 100 mg PO TID #9 cap 03/24/20 [Rx] C,E,Zinc,Copper 11/Zvskg6v/Lut [Ocuvite Adult 50 Plus Softgel] 1 cap PO DAILY 06/25/20 [History] Cyanocobalamin (Vitamin B-12) [Vitamin B-12] 1,000 mcg PO DAILY 06/25/20 [History] Spironolactone 50 mg PO DAILY 06/25/20 [History] Vitamin E 400 unit PO DAILY 06/25/20 [History] Brimonidine Tartrate [Alphagan P 0.2% Ophth Soln] 1 drop RIGHT EYE BID 11/26/20 [History] Glucagon [Gvoke Pfs 1-Pack Syringe] 1 mg SQ ONCE PRN 11/26/20 [History] Pantoprazole Sodium [Protonix] 40 mg PO DAILY 11/26/20 [History] Hydrocortisone [Cortef] 5 mg PO HS #0 12/16/20 [Rx] Hydrocortisone [Cortef] 10 mg PO DAILY@1200 #0 12/16/20 [Rx] Hydrocortisone [Cortef] 15 mg PO DAILY #0 12/16/20 [Rx] busPIRone HCl [Buspar] 5 mg PO BID 02/04/21 [History] Nystatin 1 applic TOPICAL BID PRN 02/17/21 [History] Insulin Aspart (For Pump) [NovoLOG (For Pump)] 0.01 unit SQ-PUMP CONTINUOUS 03/03/21 [History] Cranberry Fruit Extract [Cranberry] 1,500 mg PO BID 08/15/21 [History] Escitalopram [Lexapro] 10 mg PO HS 08/15/21 [History] Liquid Multi Vitamin 30 ml PO DAILY 08/15/21 [History] Ondansetron [Zofran] 4 mg PO Q6H PRN 08/15/21 [History] Rosuvastatin Calcium [Crestor] 5 mg PO HS 08/15/21 [History] lisinopriL 40 mg PO DAILY 08/15/21 [History] Butalb/APAP/Caff 50-325-40Mg [Fioricet 50-325-40] 1 tab PO TID PRN #9 tab 08/20/21 [Rx] Cephalexin [Keflex] 250 mg PO HS #0 08/20/21 [Rx] HYDROcodone/APAP 10-325MG [[place] 10-325] 1 tab PO QID PRN #12 tab 08/20/21 [Rx] Cholestyramine (with Sugar) [Cholestyramine Packet] 4 gm PO BID PRN 09/06/21 [History] Metoprolol Succinate [Toprol XL] 100 mg PO HS 09/06/21 [History] Sucralfate [Carafate] 1 gm PO AC-TID 09/06/21 [History] Loperamide [Imodium] 2 mg PO QID PRN cap 09/10/21 [Rx] Psyllium Husk 100% [Metamucil Packet] 6 gm PO DAILY packet 09/10/21 [Rx] Cholecalciferol [Vitamin D3 (25 Mcg = 1000 Iu)] 75 mcg PO DAILY 09/21/21 [History] Lactobacillus Acidoph & Bulgar [Lactinex] 1 tab PO TID 09/21/21 [History] Promethazine [Phenergan] 25 mg PO TID PRN 09/21/21 [History] Ertapenem [INVanz] 1 gm IVPB Q24H 7 Days #7 each 09/25/21 [Rx] Follow up Appointment(s)/Referral(s): Andrew Gonsales MD [Primary Care Provider] - 1-2 days [facility], [NON-STAFF] - As Needed ([facility] will call you to schedule a time for your visit for 09/26/21 to begin IV infusions and education.) [facility] [NON-STAFF] - ([facility] will deliver outpatient IV antibiotic supplies to patient's house on the evening of 09/25/21. They will call prior to delivery.) Discharge Disposition: HOME WITH HOME HEALTH SERVICES
[2021-09-25 15:17] VITALS: BP 156/80; RESP 18; TEMP 98.7
--- NOTE | 2021-09-25 16:03 | P.PN ---
Subjective Progress Note Date: 09/25/21 Principal diagnosis: Urinary tract infection Patient is a 71-year-old female with past medical history significant for recurrent him to tract infection presenting to the hospital generalized weakness and no energy did have some urinary burning positive and concerning for symptomatic urinary tract infection. On today's evaluation that is 09/25/2021, the patient continues to be afebrile, the patient is complaining of feeling weak and not being to her baseline, no wo rsening flank pain and no chest pain shortness of breath or cough and no diarrhea no nausea no vomiting Objective - Vital Signs Vital signs: Vital Signs Temp 98.7 F 09/25/21 15:00 Pulse 51 L 09/25/21 15:00 Resp 18 09/25/21 15:00 BP 156/80 09/25/21 15:00 Pulse Ox 97 09/25/21 15:00 Intake & Output 09/24/21 09/25/21 09/25/21 18:59 06:59 18:59 Intake Total 700 Balance 700 Intake: Intake, IV Titration 100 Amount Ertapenem 1 gm In Sodium 100 Chloride 0.9% 50 ml @ 100 mls/hr IVPB Q24H [facility] Rx# :[id number] Oral 600 Other: Voiding Method Toilet Toilet Toilet # Voids 4 1 3 # Bowel Movements 0 - Exam GENERAL DESCRIPTION: An elderly female lying in bed in no distress RESPIRATORY SYSTEM: Unlabored breathing , decreased breath sounds at bases HEART: S1 S2 regular rate and rhythm , ABDOMEN: Soft , no tenderness EXTREMITIES: No edema feett - Labs CBC & Chem 7: 09/24/21 07:46 09/24/21 07:46 Labs: Abnormal Lab Results - Last 24 Hours (Table) 09/24/21 09/24/21 09/25/21 Range/Units 15:59 21:11 03:01 POC Glucose (mg/dL) 319 H 390 H 228 H (75-99) mg/dL 09/25/21 09/25/21 Range/Units 06:53 11:23 POC Glucose (mg/dL) 166 H 172 H (75-99) mg/dL Assessment and Plan (1) UTI (urinary tract infection) Current Visit: Yes Status: Acute Code(s): N39.0 - URINARY TRACT INFECTION, SITE NOT SPECIFIED SNOMED Code(s): 94888469 Plan: 1patient presented to hospital with generalized weakness no energy has been complaining of dysuria and respiratory have elevated white count and a positive UA concerning for a symptomatic urinary tract infection in this patient culture have been positive for multiple pathogen including ESBL E. coli and will need to cover for that pathogen while waiting for the culture to finalize. 2patient with multiple antibiotic allergies that would limit the number of antibiotics safe to use. 3patient urine has been finalize with Citrobacter however the patient do have multiple antibiotic ALLERGIES plan is for Invanz 1 g daily for 7 days to finish a course of therapy and close outpatient follow-up Time with Patient: Less than 30
== END 2021-09-25 17:05 | disposition home health service (06) | DRG 690 ==
LOC: EC 16:20 → 6NMEDSUR 21:49 → OBSVTOIN 09-22 12:52 → 4SSUR 09-22 13:06
PROVIDERS: ADMIT Family Medicine; ATTEND Family Medicine
PROC: 05HD33Z Insertion of Infusion Device into Right Cephalic Vein, Percutaneous Approach (ICD-10-PCS; principal; 2021-09-24 20:00)
DX: N39.0 Urinary tract infection, site not specified (principal); N17.9 Acute kidney failure, unspecified; E27.1 Primary adrenocortical insufficiency; B96.89 Other specified bacterial agents as the cause of diseases classified elsewhere; E11.40 Type 2 diabetes mellitus with diabetic neuropathy, unspecified; Z79.4 Long term (current) use of insulin; E78.5 Hyperlipidemia, unspecified; E86.0 Dehydration; G43.909 Migraine, unspecified, not intractable, without status migrainosus; I10 Essential (primary) hypertension; J42 Unspecified chronic bronchitis; M79.7 Fibromyalgia; Z79.82 Long term (current) use of aspirin; Z79.899 Other long term (current) drug therapy; Z80.49 Family history of malignant neoplasm of other genital organs; Z82.3 Family history of stroke; Z82.49 Family history of ischemic heart disease and other diseases of the circulatory system; Z83.3 Family history of diabetes mellitus; Z83.6 Family history of other diseases of the respiratory system; M15.9 Polyosteoarthritis, unspecified; M54.81 Occipital neuralgia; Z87.440 Personal history of urinary (tract) infections; Z87.442 Personal history of urinary calculi; G47.33 Obstructive sleep apnea (adult) (pediatric); R42 Dizziness and giddiness; Z88.1 Allergy status to other antibiotic agents; E21.3 Hyperparathyroidism, unspecified; Z90.710 Acquired absence of both cervix and uterus; Z96.41 Presence of insulin pump (external) (internal); Z82.0 Family history of epilepsy and other diseases of the nervous system; Z89.421 Acquired absence of other right toe(s); Z98.42 Cataract extraction status, left eye; Z98.41 Cataract extraction status, right eye; Z98.1 Arthrodesis status; Z90.89 Acquired absence of other organs; Z90.49 Acquired absence of other specified parts of digestive tract; Z98.890 Other specified postprocedural states; Z87.01 Personal history of pneumonia (recurrent); Z86.14 Personal history of Methicillin resistant Staphylococcus aureus infection; Z88.6 Allergy status to analgesic agent; Z88.5 Allergy status to narcotic agent; Z88.0 Allergy status to penicillin; Z88.2 Allergy status to sulfonamides; Z88.8 Allergy status to other drugs, medicaments and biological substances
CPT/HCPCS: 36410; 36415; 71046; 74176; 76937; 80048; 80053; 81001; 83605; 83735; 83880; 84145; 84484; 85025; 85610; 85730; 87077; 87086; 87186; 93005; 94760; 96361; 96365; 96366; 96375; 99285

== ENCOUNTER → 2022-01-19 | Outpatient (CLI) | payer MEDICARE, BC ==
--- NOTE | 2022-01-20 18:09 | MM ---
Reason for Exam: Screening (asymptomatic). Last mammogram was performed 1 year(s) and 3 month(s) ago. Patient History: Menarche at age 10. First Full-Term at age 21. Left ovary removed at age 28. Right ovary removed at age 28. Hysterectomy at age 27. Postmenopausal. Estrogen for 30 years from age 27 until age 58. 09/2009, Bilateral Reduction. Paternal cousin had breast cancer, age 60. Paternal cousin had breast cancer, age 60. Risk Values: Carolyne 5 year model risk: 1.7%. NCI Lifetime model risk: 4.5%. Prior Study Comparison: 04/05/2018 Bilateral Screening Mammogram, MERGED WITH [facility]. 06/27/2019 Bilateral Screening Mammogram, MERGED WITH [facility]. 10/21/2020 Bilateral Screening Mammogram, MERGED WITH [facility]. Tissue Density: There are scattered fibroglandular densities. Findings: Analyzed By CAD. There are benign bilateral oil cyst calcifications, larger on the right than the left but overall unchanged. No significant change from prior exams. Overall Assessment: Benign, BI-RAD 2 Management: Screening Mammogram of both breasts in 1 year. 1. Patient should continue monthly self breast exams. 2. A clinical breast exam by your physician is recommended on an annual basis. 3. This exam should not preclude additional follow-up of suspicious palpable abnormalities. Electronically signed and approved by: David Murillo M.D. Radiologist
== END | disposition home or self-care (01) ==
LOC: RADMAMWWP 14:37
PROVIDERS: ATTEND Family Medicine
DX: Z12.31 Encounter for screening mammogram for malignant neoplasm of breast (principal); Z78.0 Asymptomatic menopausal state
CPT/HCPCS: 77063; 77067

== ENCOUNTER → 2022-02-24 | Outpatient (CLI) | payer MEDICARE, BC | END | disposition home or self-care (01) | LOC: LABWHC1 10:54 | PROVIDERS: ATTEND Internal Medicine Endocrinology, Diabetes & Metabolism | DX: Z53.9 Procedure and treatment not carried out, unspecified reason (principal) ==

== ENCOUNTER → 2022-03-01 | Outpatient (CLI) | payer MEDICARE, BC ==
--- NOTE | 2022-03-02 10:12 | MR ---
MRI CERVICAL SPINE: CLINICAL HISTORY: Headache with right arm and hand severe pain. Cervical radiculopathy per order. TECHNIQUE: Multiplanar, multisequence imaging of the cervical spine is performed without IV contrast. COMPARISON: Prior MRI cervical spine report September 16, 2019. Direct correlation cannot be performed du e to PACS downtime FINDINGS: Sagittal images of the cervical spine show the craniocervical junction to appear within nor mal limits. The cervical and upper thoracic spinal cord is normal in caliber and signal. Suggestion of some dextroconvex scoliosis centered in the midthoracic spine. Slight grade 1 retrolisthesis C4 on C5 and C5 on C6 with moderate disc space narrowing at these levels. Slight grade 1 anterolisthesis C 6 on C7 and C7 on T1. The vertebral body heights are normal. The bone marrow signal intensity is wi thin normal limits. Axial images at C2-C3 level appear within normal limits. Axial images at C3-C4 level show focal central disc protrusion effaces the anterior thecal sac and ne damian abuts the ventral surface of spinal cord with some uncovertebral facet degenerative changes caus ing minimal right-sided neural foraminal narrowing. Axial images at C4-C5 level shows subtle spondylolisthesis with broad based left paracentral disc pro trusion having foraminal component effacing the anterolateral thecal sac and causing asymmetric moder ate left-sided neural foraminal narrowing. Axial images at C5-C6 level shows broad-based right paracentral disc protrusion effacing anterior the krishan sac with moderate right and mild left-sided neural foraminal narrowing. Axial images at C6-C7 level shows subtle spondylolisthesis. Spinal canal preserved. Bilateral neural foramina are patent. Axial images at C7-T1 level appear within normal limits. IMPRESSION: Multilevel spondylolisthesis and degenerative changes in the cervical spine as detailed a rashida. Direct correlation cannot be performed due to PACS downtime.
== END | disposition home or self-care (01) ==
LOC: RADMRIMAIN 13:42
PROVIDERS: ATTEND Psychiatry & Neurology Neurology
DX: M43.12 Spondylolisthesis, cervical region (principal); M50.321 Other cervical disc degeneration at C4-C5 level; M47.812 Spondylosis without myelopathy or radiculopathy, cervical region
CPT/HCPCS: 72141

== ENCOUNTER → 2022-03-04 | Outpatient (CLI) | payer MEDICARE, BC ==
[2022-02-24 15:50] LABS: Creatinine 24 Hour,Urine 550.2 mg/24hr (800.0-1800.0)
[2022-02-24 19:53] LABS: African American GFR (CKD) 65.2 (60.0-200.0); Anion Gap 13.5 mmol/L (10.00-18.00); Blood Urea Nitrogen 21.5 mg/dL (9.0-27.0); Calcium 9.3 mg/dL (8.7-10.3); Carbon Dioxide 24.5 mmol/L (20.0-27.5); Magnesium 2.1 mg/dL (1.5-2.4); Non-African American GFR(CKD) 56.2 (60.0-200.0)
[2022-02-24 21:01] LABS: Albumin 4.1 g/dL (3.8-4.9); T4, Free (Free Thyroxine) 1.03 ng/dL (0.800-1.800)
[2022-02-24 23:57] LABS: Microalbumin Creatinine Ratio <30 mg/g Creat (0-30); Urine Creatinine 62.3 mg/dL (28.0-217.0)
[2022-02-25 06:27] LABS: Total Protein 24 Hour,Urine 109.9 mg/24Hr (0.0-165.0); Total Volume 24 Hour,Urine 700 mL
[2022-03-01 12:02] LABS: Cortisol, Urine Free by LC-MS 16.4 ug/L; Free Cortisol 24 Hour,Urine 11.5 ug/day (<45.0)
--- NOTE | 2022-03-04 11:57 | CT ---
EXAMINATION TYPE: CT angio chest DATE OF EXAM: 03/04/2022 COMPARISON: 03/19/2020 HISTORY: Thoracic aortic aneurysm without rupture CT DLP: 941 mGycm CONTRAST: CTA thoracic aorta with 3-D reconstruction is performed and without and with IV Contrast, patient inj ected with 100 mL of Isovue 370. Contrast CTA of the thoracic aorta was performed from the lung apex through the upper abdomen. 3D re construction imaging obtained at a separate workstation. CT Chest: THORACIC AORTA: No evidence for thoracic aortic aneurysm. Ascending thoracic aortic aneurysm stable a t 3.7 cm. Normal-appearing thoracic aortic arch and descending thoracic aorta with regards to caliber . Mild atheromatous changes seen. There is no evidence for dissection or periaortic collection. LUNGS: The lungs are clear and free of infiltrate or atelectasis. No pulmonary nodule or mass is det ected. No pleural effusion or CT evidence of interstitial lung disease. MEDIASTINUM: No evidence for mediastinal hematoma. The heart is enlarged. No evidence for medias tinal mass or adenopathy. HILAR STRUCTURES: No evidence for mass. No hilar adenopathy is appreciated. OTHER: No significant abnormality. IMPRESSION- No evidence for thoracic aortic aneurysm.
== END | disposition home or self-care (01) ==
LOC: RADCTMAIN 09:52
PROVIDERS: ATTEND Internal Medicine Interventional Cardiology
DX: I25.10 Atherosclerotic heart disease of native coronary artery without angina pectoris (principal)
CPT/HCPCS: 82530; 84439; 80051; 82533; 82040; 82310; 81050; 82565 ×2; 82575; 84244; 83735; 84443; 84450; 84460; 84520 ×2; 84156; 82024; 82306; 82043; 82570; 71275; 36415; Q9967

== ENCOUNTER 2022-05-25 03:40 | Observation (INO) | payer MEDICARE, BC ==
--- NOTE | 2022-05-25 03:48 | ED ---
Neck Injury/Pain HPI - General Stated Complaint: Nausea, neck pain Time Seen by Provider: 05/25/22 03:44 Source: RN notes reviewed, old records reviewed Mode of arrival: EMS Limitations: no limitations - History of Present Illness Initial Comments: This is a 71-year-old female DF for evaluation. She presents today for evaluation of severe right upper Shorty pain. Positive nausea. Nausea and vomiting the point where she cannot take her home medications. States the pain in her neck is out of control going down her neck going on her shoulder. She is scheduled for surgery in 3 weeks. No new trauma. No new injuries. No weakness in either arm or legs MD Complaint: neck pain, upper back pain, other (Severe neck pain with history of cervical spurs) -: days(s) Place: home Radiation: right lateral, left lateral, occiput, upper back Severity: severe Severity scale (1-10): 10 Quality: sharp, stabbing Consistency: constant Improves With: none Worsens With: none Context: unknown Associated Symptoms: none Treatments Prior to Arrival: none - Related Data Home Medications Medication Instructions Recorded Confirmed Meclizine [Antivert] 25 mg PO QID PRN 11/26/17 09/21/21 Ferrous Sulfate [Iron (65 MG 325 mg PO DAILY 10/08/18 09/21/21 Elemental)] Folic Acid 0.4 mg PO DAILY 10/08/18 09/21/21 L.acidoph,Paracasei, B.lactis 2 cap PO BID 10/08/18 09/21/21 [Probiotic] Melatonin 5 mg PO HS PRN 10/08/18 09/21/21 Potassium 99 mg PO DAILY 10/08/18 09/21/21 Thiamine [Vitamin B-1] 100 mg PO DAILY 10/08/18 09/21/21 Vitamin B-Complex Drops 1 ml PO BID 10/08/18 09/21/21 Magnesium Oxide [Mag-Ox] 400 mg PO DAILY 12/06/19 09/21/21 C,E,Zinc,Copper 11/Jfpeo6u/Lut 1 cap PO DAILY 06/25/20 09/21/21 [Ocuvite Adult 50 Plus Softgel] Cyanocobalamin (Vitamin B-12) 1,000 mcg PO DAILY 06/25/20 09/21/21 [Vitamin B-12] Spironolactone 50 mg PO DAILY 06/25/20 09/21/21 Vitamin E 400 unit PO DAILY 06/25/20 09/21/21 Brimonidine Tartrate [Alphagan P 1 drop RIGHT EYE BID 11/26/20 09/21/21 0.2% Ophth Soln] Glucagon [Gvoke Pfs 1-Pack Syringe] 1 mg SQ ONCE PRN 11/26/20 09/21/21 Pantoprazole Sodium [Protonix] 40 mg PO DAILY 11/26/20 09/21/21 busPIRone HCl [Buspar] 5 mg PO BID 02/04/21 09/21/21 Nystatin 1 applic TOPICAL BID PRN 02/17/21 09/21/21 Insulin Aspart (For Pump) [NovoLOG 0.01 unit SQ-PUMP CONTINUOUS 03/03/21 09/21/21 (For Pump)] Cranberry Fruit Extract [Cranberry] 1,500 mg PO BID 08/15/21 09/21/21 Escitalopram [Lexapro] 10 mg PO HS 08/15/21 09/21/21 Liquid Multi Vitamin 30 ml PO DAILY 08/15/21 09/21/21 Ondansetron [Zofran] 4 mg PO Q6H PRN 08/15/21 09/21/21 Rosuvastatin Calcium [Crestor] 5 mg PO HS 08/15/21 09/21/21 lisinopriL 40 mg PO DAILY 08/15/21 09/21/21 Cholestyramine (with Sugar) 4 gm PO BID PRN 09/06/21 09/21/21 [Cholestyramine Packet] Metoprolol Succinate [Toprol XL] 100 mg PO HS 09/06/21 09/21/21 Sucralfate [Carafate] 1 gm PO AC-TID 09/06/21 09/21/21 Cholecalciferol [Vitamin D3 (25 75 mcg PO DAILY 09/21/21 09/21/21 Mcg = 1000 Iu)] Lactobacillus Acidoph & Bulgar 1 tab PO TID 09/21/21 09/21/21 [Lactinex] Promethazine [Phenergan] 25 mg PO TID PRN 09/21/21 09/21/21 Previous Rx's Medication Instructions Recorded Aspirin 81 mg PO DAILY #0 07/02/18 Gabapentin [Neurontin] 100 mg PO TID #9 cap 03/24/20 Hydrocortisone [Cortef] 5 mg PO HS #0 12/16/20 Hydrocortisone [Cortef] 10 mg PO DAILY@1200 #0 12/16/20 Hydrocortisone [Cortef] 15 mg PO DAILY #0 12/16/20 Butalb/APAP/Caff 50-325-40Mg 1 tab PO TID PRN #9 tab 08/20/21 [Fioricet 50-325-40] Cephalexin [Keflex] 250 mg PO HS #0 08/20/21 HYDROcodone/APAP 10-325MG [Midway 1 tab PO QID PRN #12 tab 08/20/21 10-325] Loperamide [Imodium] 2 mg PO QID PRN cap 09/10/21 Psyllium Husk 100% [Metamucil 6 gm PO DAILY packet 09/10/21 Packet] Ertapenem [INVanz] 1 gm IVPB Q24H 7 Days #7 each 09/25/21 Allergies Allergy/AdvReac Type Severity Reaction Status Date / Time butorphanol tartrate Allergy BLISTERS Verified 09/21/21 18:07 [From Stadol] IN MOUTH ceftriaxone [From Rocephin] Allergy Unknown Verified 09/21/21 18:07 clarithromycin [From Biaxin] Allergy Rash/Hives Verified 09/21/21 18:07 clindamycin Allergy Unknown Verified 09/21/21 18:07 codeine Allergy Rash/Hives Verified 09/21/21 18:07 ergotamine tartrate Allergy Unknown Verified 09/21/21 18:07 [From Cafergot] erythromycin base Allergy RASH, GI Verified 09/21/21 18:07 [From E-Mycin] SYMPTOMS ketorolac tromethamine Allergy Rash/Hives Verified 09/21/21 18:07 [From Toradol] liraglutide [From Victoza] Allergy Rash/Hives Verified 09/21/21 18:07 morphine Allergy Rash/Hives Verified 09/21/21 18:07 Penicillins Allergy Rash/Hives Verified 09/21/21 18:07 on upper body pentazocine lactate Allergy SEVERE Verified 09/21/21 18:07 [From Talwin] BLISTERS IN MOUTH pregabalin [From Lyrica] Allergy Rash/Hives Verified 09/21/21 18:07 propoxyphene HCl Allergy Rash/Hives Verified 09/21/21 18:07 [From Darvon] Sulfa (Sulfonamide Allergy Rash/Hives Verified 09/21/21 18:07 Antibiotics) tramadol Allergy Unknown Verified 09/21/21 18:07 monosodium glutamate [MSG] AdvReac Nausea & Verified 09/21/21 18:07 Vomiting nalbuphine HCl [From Nubain] AdvReac Nausea & Verified 09/21/21 18:07 Vomiting Review of Systems ROS Statement: Those systems with pertinent positive or pertinent negative responses have been documented in the HPI. ROS Other: All systems not noted in ROS Statement are negative. Past Medical History Past Medical History: Diabetes Mellitus, Deep Vein Thrombosis (DVT), Fibromyalgia, Hyperlipidemia, Hypertension, Osteoarthritis (OA), Pneumonia, Renal Disease, Sleep Apnea/CPAP/BIPAP, Vascular Disorder Additional Past Medical History / Comment(s): Pt recently admitted to [facility] with R flank pain. 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, DVT R calf in 1976, cardiac murmur, occipital neuraligia, balance issues-has narrowing of vessels "in the back of my head", vertigo, varicosities, states rt shoulder torn rotator cuff History of Any Multi-Drug Resistant Organisms: ESBL, MRSA, VRE Date of last positivie culture/infection: 11/25/20 ESBL;12/06/19 VRE; 03/10/11 MRSA MDRO Source:: Urine ESBL; Urine-VRE: MRSA 4th Right TOE Past Surgical History: Appendectomy, Back Surgery, Bladder Surgery, Breast Surgery, Cholecystectomy, Heart Catheterization, Hysterectomy, Orthopedic Surgery, Tonsillectomy Additional Past Surgical History / Comment(s): Lumbar fusions, bladder suspension, occipital nerve blocks, 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, R wrist/elbow nerve repair, bone removed R shoulder, 4th toe R foot partial amputation, bilateral feet/bunionectomies, R knee arthroscopies, R orbit decompression with ethmoidectomy and eyelid lift, EGD, colonoscopies, cystocopies, lithotripsy/stents, bilateral breast reduction, bilateral cataract removals, parathyroid surgery - April 2019, pain clinic procedures Past Anesthesia/Blood Transfusion Reactions: No Reported Reaction Additional Past Anesthesia/Blood Transfusion Reaction / Comment(s): never reciev ed blood Smoking Status: Never smoker - Past Family History Father Family Medical History: Coronary Artery Disease (CAD), CVA/TIA, Diabetes Mellitus, Myocardial Infarction (PR), Pneumonia Additional Family Medical History / Comment(s): Father at the age of 78yrs from PR and pneumonia. Mother Family Medical History: Cancer, Congestive Heart Failure (CHF) Additional Family Medical History / Comment(s): Mother had uterine cancer. She recently at the age of 96yrs old from shingles. General Exam General appearance: alert, in no apparent distress Head exam: Present: atraumatic, normocephalic, normal inspection Eye exam: Present: normal appearance, PERRL, EOMI. Absent: scleral icterus, conjunctival injection, periorbital swelling ENT exam: Present: normal exam, mucous membranes moist Neck exam: Present: normal inspection. Absent: tenderness, meningismus, lymphadenopathy Respiratory exam: Present: normal lung sounds bilaterally. Absent: respiratory distress, wheezes, rales, rhonchi, stridor Cardiovascular Exam: Present: regular rate, normal rhythm, normal heart sounds. Absent: systolic murmur, diastolic murmur, rubs, gallop, clicks GI/Abdominal exam: Present: soft, normal bowel sounds. Absent: distended, tenderness, guarding, rebound, rigid Extremities exam: Present: normal inspection, full ROM, normal capillary refill. Absent: tenderness, pedal edema, joint swelling, calf tenderness Back exam: Present: normal inspection Neurological exam: Present: alert, oriented X3, CN II-XII intact Psychiatric exam: Present: normal affect, normal mood Skin exam: Present: warm, dry, intact, normal color. Absent: rash Course Vital Signs 05/25/22 03:49 Temperature 98.1 F Pulse Rate 98 Respiratory 18 Rate Blood Pressure 123/72 O2 Sat by Pulse 97 Oximetry - Reevaluation(s) Reevaluation #1: 05/25/22 05:25 Medical record is reviewed Reevaluation #2: 05/25/22 05:25 Patient informed results and questions are answered Reevaluation #3: 12/07/22 05:25 Patient has adequate pain control Medical Decision Making - Medical Decision Making 71 female to the ER for evaluation she presents today for evaluation of severe neck pain with no new trauma. History of cervical spurs with need for neck surgery. Patient's neck pain at home became worse today but mainly nausea and vomiting today low to take her medication. Patient will be admitted for symptom control Disposition Clinical Impression: Headache, Cervical radiculopathy, Neck pain Disposition: ADMITTED IP TO THIS HOSP Condition: Fair Is patient prescribed a controlled substance at d/c from ED?: No Referrals: Andrew Gonsales MD [Primary Care Provider] - 1-2 days Time of Disposition: 05:30
[2022-05-25] MEDS ORDERED: SODIUM CHLORIDE 0.9% 1,000 ML IV STA ×2 (05:06)
[2022-05-25] MEDS ORDERED: ONDANSETRON 4 MG/2 ML VIAL IVP STA (05:06)
[2022-05-25] MEDS ORDERED: HYDROmorphone 1 MG/ML 1 ML SYRINGE IVP STA (05:07)
[2022-05-25] MEDS ORDERED: HYDROCORTISONE SUCCINATE 100 MG/2 ML VIAL IV STA (05:07)
[2022-05-25] MEDS ORDERED: NALOXONE 0.4 MG/ML 1 ML VIAL IV PRN (05:23)
[2022-05-25] MEDS ORDERED: LORazepam 0.5 MG TAB PO PRN (05:23)
[2022-05-25] MEDS: HYDROmorphone 1 MG/ML 1 ML SYRINGE IVP PRN ×6 (05:41→23:38)
[2022-05-25 05:56] LABS: Albumin 4.7 g/dL (3.5-5.0); Calcium 9.4 mg/dL (8.4-10.2); Magnesium 1.7 mg/dL (1.6-2.3); Phosphorus 3.3 mg/dL (2.5-4.5); Total Bilirubin 0.7 mg/dL (0.2-1.3); Total Protein 7.3 g/dL (6.3-8.2)
[2022-05-25 05:57] LABS: Basophils % (A) 0 %; Eosinophils # (A) 0.2 k/uL (0-0.7); Eosinophils % (A) 3 %; HCT 47.7 % (34.0-46.0); HGB 16.3 gm/dL (11.4-16.0); Lymphocytes # (A) 1.6 k/uL (1.0-4.8); Lymphocytes % (A) 19 %; MCH 30.9 pg (25.0-35.0); MCHC 34.1 g/dL (31.0-37.0); MCV 90.4 fL (80.0-100.0); Monocytes # (A) 0.5 k/uL (0-1.0); Monocytes % (A) 6 %; Neutrophils # (A) 5.7 k/uL (1.3-7.7); Neutrophils % (A) 70 %; Platelet Count 201 k/uL (150-450); RBC 5.27 m/uL (3.80-5.40); RDW 14.6 % (11.5-15.5); WBC 8.2 k/uL (3.8-10.6)
[2022-05-25] MEDS: SODIUM CHLORIDE 0.9% 1,000 ML IV SCH (06:48)
[2022-05-25] MEDS ORDERED: BUTALB/APAP/CAFF 50-325-40MG TAB PO PRN (08:21)
[2022-05-25] MEDS ORDERED: HYDROcodone/APAP 10-325MG 1 EACH TAB PO PRN (08:22)
[2022-05-25] MEDS: ONDANSETRON 4 MG/2 ML VIAL IVP PRN ×2 (09:26→16:39)
[2022-05-25] MEDS: ASPIRIN 81 MG PO SCH (10:59)
[2022-05-25] MEDS: HYDROCORTISONE 10 MG TAB PO SCH (10:59)
[2022-05-25] MEDS: GABAPENTIN 100 MG CAP PO SCH ×3 (10:59→20:24)
[2022-05-25] MEDS: SPIRONOLACTONE 25 MG TAB PO SCH (11:00)
[2022-05-25] MEDS: lisinopriL 20 MG TAB PO SCH (11:00)
[2022-05-25] MEDS: PANTOPRAZOLE 40 MG TABLET PO SCH (11:00)
[2022-05-25] MEDS: busPIRone HCl 5 MG TAB PO SCH ×2 (11:05→23:12)
[2022-05-25] MEDS ORDERED: HYDROCORTISONE 10 MG TAB PO SCH ×2 (12:00→21:00)
[2022-05-25] MEDS ORDERED: DEXTROSE 50% SYRINGE 50 ML IVP PRN (14:15)
--- NOTE | 2022-05-25 14:15 | P.HPIM ---
History of Present Illness H&P Date: 05/25/22 Chief Complaint: Acute on chronic radiating cervical pain,n/v This is a pleasant 71-year-old female with past medical history of chronic cystitis with history of MDR bacteria,adrenal insufficency, T2DM, migraine, chronic pain, cervical radiculopathy -scheduled for surgery in June 2022 And multiple other medical issues presented to the ER with intractable cervical pain, accompanied by nausea, vomiting, sleep deprivation and fatigue. Reports over the last couple of days, pain intensified, radiating down her neck, right arm , right hand with numbness and tingling of the last 2 digits. Has not been able to take her home medications 2 days secondary to nausea and vomiting. Tachycardic with heart rates as high as 130s, EKG reporting sinus tachycardia, troponin 0.029. Denies chest pain, palpitations or shortness of breath. T-max 99.1, normal WBC. Hemoglobin 16.3, platelets 201, sodium 139, potassium 4, bicarb 17, BUN 17, creatinine 0.92, POC glucose 277, hemoglobin A1c 9.2, magnesium 1.7. Review of Systems ROS Statement: Those systems with pertinent positive or pertinent negative responses have been documented in the HPI. ROS Other: All systems not noted in ROS Statement are negative. Past Medical History Past Medical History: Diabetes Mellitus, Deep Vein Thrombosis (DVT), Fibromyalgia, Hyperlipidemia, Hypertension, Osteoarthritis (OA), Pneumonia, Renal Disease, Sleep Apnea/CPAP/BIPAP, Vascular Disorder Additional Past Medical History / Comment(s): Pt recently admitted to [facility] with R flank pain. 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, DVT R calf in 1976, cardiac murmur, occipital neuraligia, balance issues-has narrowing of vessels "in the back of my head", vertigo, varicosities, states rt shoulder torn rotator cuff History of Any Multi-Drug Resistant Organisms: ESBL, MRSA, VRE Date of last positivie culture/infection: 11/25/20 ESBL;12/06/19 VRE; 03/10/11 MRSA MDRO Source:: Urine ESBL; Urine-VRE: MRSA 4th Right TOE Past Surgical History: Appendectomy, Back Surgery, Bladder Surgery, Breast Surgery, Cholecystectomy, Heart Catheterization, Hysterectomy, Orthopedic Surgery, Tonsillectomy Additional Past Surgical History / Comment(s): Lumbar fusions, bladder suspension, occipital nerve blocks, 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, R wrist/elbow nerve repair, bone removed R shoulder, 4th toe R foot partial amputation, bilateral feet/bunionectomies, R knee arthroscopies, R orbit decompression with ethmoidectomy and eyelid lift, EGD, colonoscopies, c ystocopies, lithotripsy/stents, bilateral breast reduction, bilateral cataract removals, parathyroid surgery - April 2019, pain clinic procedures Past Anesthesia/Blood Transfusion Reactions: No Reported Reaction Additional Past Anesthesia/Blood Transfusion Reaction / Comment(s): never recieved blood Smoking Status: Never smoker - Past Family History Father Family Medical History: Coronary Artery Disease (CAD), CVA/TIA, Diabetes Mellitus, Myocardial Infarction (MD), Pneumonia Additional Family Medical History / Comment(s): Father at the age of 78yrs from MD and pneumonia. Mother Family Medical History: Cancer, Congestive Heart Failure (CHF) Additional Family Medical History / Comment(s): Mother had uterine cancer. She recently at the age of 96yrs old from shingles. Medications and Allergies Home Medications Medication Instructions Recorded Confirmed Type Meclizine [Antivert] 25 mg PO QID PRN 11/26/17 05/25/22 History Aspirin 81 mg PO DAILY #0 07/02/18 05/25/22 Rx Ferrous Sulfate [Iron (65 MG 325 mg PO DAILY 10/08/18 05/25/22 History Elemental)] Folic Acid 0.4 mg PO DAILY 10/08/18 05/25/22 History L.acidoph,Paracasei, B.lactis 2 cap PO BID 10/08/18 05/25/22 History [Probiotic] Melatonin 5 mg PO HS PRN 10/08/18 05/25/22 History Potassium 99 mg PO DAILY 10/08/18 05/25/22 History Thiamine [Vitamin B-1] 100 mg PO DAILY 10/08/18 05/25/22 History Vitamin B-Complex Drops 1 drop PO BID 10/08/18 05/25/22 History Gabapentin [Neurontin] 100 mg PO TID #9 cap 03/24/20 05/25/22 Rx C,E,Zinc,Copper 11/Gyumc2e/Lut 1 cap PO DAILY 06/25/20 05/25/22 History [Ocuvite Adult 50 Plus Softgel] Cyanocobalamin (Vitamin B-12) 1,000 mcg PO DAILY 06/25/20 05/25/22 History [Vitamin B-12] Spironolactone 50 mg PO DAILY 06/25/20 05/25/22 History Vitamin E 400 unit PO DAILY 06/25/20 05/25/22 History Brimonidine Tartrate [Alphagan P 1 drop RIGHT EYE BID 11/26/20 05/25/22 History 0.2% Ophth Soln] Glucagon [Gvoke Pfs 1-Pack Syringe] 1 mg SQ ONCE PRN 11/26/20 05/25/22 History Pantoprazole Sodium [Protonix] 40 mg PO DAILY 11/26/20 05/25/22 History Hydrocortisone [Cortef] 5 mg PO HS #0 12/16/20 05/25/22 Rx Hydrocortisone [Cortef] 10 mg PO DAILY@1200 #0 12/16/20 05/25/22 Rx Hydrocortisone [Cortef] 15 mg PO DAILY #0 12/16/20 05/25/22 Rx busPIRone HCl [Buspar] 5 mg PO BID 02/04/21 05/25/22 History Nystatin 1 applic TOPICAL BID PRN 02/17/21 05/25/22 History Insulin Aspart (For Pump) [NovoLOG 0.01 unit SQ-PUMP CONTINUOUS 03/03/21 05/25/22 History (For Pump)] Ondansetron [Zofran] 4 mg PO Q6H PRN 08/15/21 05/25/22 History Rosuvastatin Calcium [Crestor] 5 mg PO HS 08/15/21 05/25/22 History lisinopriL 40 mg PO DAILY 08/15/21 05/25/22 History Cephalexin [Keflex] 250 mg PO HS #0 08/20/21 05/25/22 Rx HYDROcodone/APAP 10-325MG [Fallon 1 tab PO QID PRN #12 tab 08/20/21 05/25/22 Rx 10-325] Metoprolol Succinate [Toprol XL] 100 mg PO HS 09/06/21 05/25/22 History Cholecalciferol [Vitamin D3 (25 75 mcg PO DAILY 09/21/21 05/25/22 History Mcg = 1000 Iu)] Promethazine [Phenergan] 25 mg PO TID PRN 09/21/21 05/25/22 History Butalb/APAP/Caff 50-325-40Mg 1 tab PO Q4H PRN 05/25/22 05/25/22 History [Fioricet 50-325-40] Cranberry Fruit Extract [Cranberry] 1,000 mg PO DAILY 05/25/22 05/25/22 History Dorzolamide 2% [Trusopt 2%] 1 drop RIGHT EYE BID 05/25/22 05/25/22 History Gabapentin 300 mg PO TID 05/25/22 05/25/22 History Magnesium Oxide [Magnesium] 500 mg PO DAILY 05/25/22 05/25/22 History Multivit-Min/Folic Acid/Rsq963 1 tab PO DAILY 05/25/22 05/25/22 History [Alive Premium Adult Multivit] Promethazine HCl [Phenergan Syrup] 6.25 mg PO Q6H PRN 05/25/22 05/25/22 History buPROPion HCL [Wellbutrin SR] 200 mg PO DAILY 05/25/22 05/25/22 History hydroCHLOROthiazide [Hydrodiuril] 25 mg PO DAILY 05/25/22 05/25/22 History Allergies Allergy/AdvReac Type Severity Reaction Status Date / Time butorphanol tartrate Allergy BLISTERS Verified 05/25/22 08:52 [From Stadol] IN MOUTH ceftriaxone [From Rocephin] Allergy Unknown Verified 05/25/22 08:52 clarithromycin [From Biaxin] Allergy Rash/Hives Verified 05/25/22 08:52 clindamycin Allergy Unknown Verified 05/25/22 08:52 codeine Allergy Rash/Hives Verified 05/25/22 08:52 ergotamine tartrate Allergy Unknown Verified 05/25/22 08:52 [From Cafergot] erythromycin base Allergy RASH, GI Verified 05/25/22 08:52 [From E-Mycin] SYMPTOMS ketorolac tromethamine Allergy Rash/Hives Verified 05/25/22 08:52 [From Toradol] liraglutide [From Victoza] Allergy Rash/Hives Verified 05/25/22 08:52 morphine Allergy Rash/Hives Verified 05/25/22 08:52 Penicillins Allergy Rash/Hives Verified 05/25/22 08:52 on upper body pentazocine lactate Allergy SEVERE Verified 05/25/22 08:52 [From Talwin] BLISTERS IN MOUTH pregabalin [From Lyrica] Allergy Rash/Hives Verified 05/25/22 08:52 propoxyphene HCl Allergy Rash/Hives Verified 05/25/22 08:52 [From Darvon] Sulfa (Sulfonamide Allergy Rash/Hives Verified 05/25/22 08:52 Antibiotics) tramadol Allergy Unknown Verified 05/25/22 08:52 monosodium glutamate [MSG] AdvReac Nausea & Verified 05/25/22 08:52 Vomiting nalbuphine HCl [From Nubain] AdvReac Nausea & Verified 05/25/22 08:52 Vomiting Physical Exam Vitals: Vital Signs Temp Pulse Resp BP Pulse Ox 05/25/22 12:50 101 H 20 132/69 98 05/25/22 10:55 99.1 F 130 H 18 133/82 93 L 05/25/22 03:49 98.1 F 98 18 123/72 97 Intake and Output 05/24/22 05/25/22 05/25/22 22:59 06:59 14:59 Other: Weight 72.575 kg - Exam General: Sitting up in chair, NAD. Vitals reviewed Eyes: PERRL, EOMI, conjunctiva normal HENT: normocephalic, mucus membranes moist Neck: supple, no JVD, tender trapezius, scapula, occipital Lungs: normal respiratory effort, no wheezes or rales. CV: Regular rate and rhythm, no murmur. Peripheral pulses 2+. Abdomen: soft, nondistended, no organomegaly. No guarding, no rigidity, positive bowel sounds Skin: warm and dry. Neuro: A&Ox3, normal mood and affect normal. Results CBC & Chem 7: 05/25/22 05:17 05/25/22 05:17 Labs: Abnormal Lab Results - Last 24 Hours (Table) 05/25/22 05/25/22 Range/Units 05:17 05:17 Hgb 16.3 H (11.4-16.0) gm/dL Hct 47.7 H (34.0-46.0) % Carbon Dioxide 17 L (22-30) mmol/L Glucose 121 H (74-99) mg/dL Assessment and Plan Assessment: Acute on chronic cervical radiculopathy, intractable pain, scheduled for fusion C5 C6, June 2022 Acute Dehydration secondary to nausea and vomiting related to the above Acute renal insufficiency secondary to the above Acute sleep deprivation related to all the above Cephalgia in a patient with history of chronic migraines Recent covid, June 2021 Diabetes type 2 on insulin pump, hyperglycemic, A1c 9.2 Diabetic peripheral neuropathy Hypertension Hyperlipidemia Osteoarthritis History of DVT Obstructive sleep apnea on CPAP at home History of nephrolithiasis Adrenal insufficiency on hydrocortisone 3 times daily. 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 Plan: Continue on current medication regime ,monitoring and symptomatic treatment. Pain management , antiemetics .Gentle IV fluid hydration.Home medications reviewed and resumed accordingly including patient's Cortef. NovoLog sliding scale, close monitoring of Accu-Cheks. The impression and plan of care has been dictated as directed. : I performed a history and examination of this patient, discussed the same with the dictator. I agree with the dictator's note ,documented as a scribe. Any additional findings or plans will be noted.
[2022-05-25 16:51] LABS: Glucose,Whole Blood 259 mg/dL (70-110)
[2022-05-25] MEDS: INSULIN ASPART (NovoLOG) 100 UNIT/ML VIAL SQ SCH ×2 (19:13→23:12)
[2022-05-25 21:10] LABS: Glucose,Whole Blood 277 mg/dL (70-110)
[2022-05-25] MEDS: ESCITALOPRAM 10 MG TAB PO SCH (23:12)
[2022-05-25] MEDS: METOPROLOL SUCCINATE (ER) 100 MG TAB.ER.24H PO SCH (23:13)
[2022-05-26] MEDS: ONDANSETRON 4 MG/2 ML VIAL IVP PRN ×3 (00:34→17:57)
[2022-05-26] MEDS: HYDROmorphone 1 MG/ML 1 ML SYRINGE IVP PRN ×5 (03:22→20:13)
[2022-05-26] MEDS: SODIUM CHLORIDE 0.9% 1,000 ML IV SCH ×2 (05:23→08:08)
[2022-05-26 06:36] LABS: Glucose,Whole Blood 340 mg/dL (70-110)
[2022-05-26] MEDS: PANTOPRAZOLE 40 MG TABLET PO SCH (06:42)
[2022-05-26] MEDS: INSULIN ASPART (NovoLOG) 100 UNIT/ML VIAL SQ SCH ×4 (06:42→21:26)
[2022-05-26] MEDS ORDERED: SODIUM CHLORIDE 0.9% 500 ML 500 ML IV ONE (08:02)
[2022-05-26] MEDS: ASPIRIN 81 MG PO SCH (08:59)
[2022-05-26] MEDS: busPIRone HCl 5 MG TAB PO SCH ×2 (08:59→20:13)
[2022-05-26] MEDS: GABAPENTIN 100 MG CAP PO SCH ×3 (08:59→20:13)
[2022-05-26] MEDS: lisinopriL 20 MG TAB PO SCH (09:02)
[2022-05-26] MEDS: SPIRONOLACTONE 25 MG TAB PO SCH (09:02)
[2022-05-26] MEDS: HYDROCORTISONE 10 MG TAB PO SCH (09:02)
[2022-05-26] MEDS: methylPREDNISolone SOD SUCCI 40 MG/ML 1 ML VIAL IV SCH ×2 (11:26→16:48)
[2022-05-26 11:29] VITALS: BMI 31.2
[2022-05-26 12:12] LABS: Glucose,Whole Blood 190 mg/dL (70-110)
[2022-05-26] MEDS: INSULIN DETEMIR (LEVEMIR) 100 UNIT/ML SYR SQ SCH (12:51)
[2022-05-26] MEDS: MIDODRINE 5 MG TAB PO SCH ×2 (13:10→17:50)
[2022-05-26] MEDS: HEPARIN SODIUM,PORCINE/PF 5,000 UNIT/0.5 ML SYRINGE SQ SCH ×2 (16:48→20:16)
[2022-05-26 16:58] LABS: Glucose,Whole Blood 284 mg/dL (70-110)
[2022-05-26] MEDS: METOPROLOL SUCCINATE (ER) 100 MG TAB.ER.24H PO SCH (20:13)
[2022-05-26] MEDS: ESCITALOPRAM 10 MG TAB PO SCH (20:13)
[2022-05-26 20:49] LABS: Glucose,Whole Blood 318 mg/dL (70-110)
[2022-05-27] MEDS: HYDROmorphone 1 MG/ML 1 ML SYRINGE IVP PRN ×6 (01:18→20:21)
[2022-05-27] MEDS: methylPREDNISolone SOD SUCCI 40 MG/ML 1 ML VIAL IV SCH ×4 (01:18→23:34)
[2022-05-27] MEDS: ONDANSETRON 4 MG/2 ML VIAL IVP PRN (05:46)
[2022-05-27] MEDS: MIDODRINE 5 MG TAB PO SCH ×2 (05:46→15:20)
[2022-05-27] MEDS: PANTOPRAZOLE 40 MG TABLET PO SCH (05:47)
[2022-05-27] MEDS: INSULIN DETEMIR (LEVEMIR) 100 UNIT/ML SYR SQ SCH (06:48)
[2022-05-27 06:49] LABS: Glucose,Whole Blood 355 mg/dL (70-110)
[2022-05-27] MEDS: INSULIN ASPART (NovoLOG) 100 UNIT/ML VIAL SQ SCH ×4 (06:51→21:34)
[2022-05-27] MEDS: busPIRone HCl 5 MG TAB PO SCH ×2 (08:07→21:25)
[2022-05-27] MEDS: ASPIRIN 81 MG PO SCH (08:07)
[2022-05-27] MEDS: SPIRONOLACTONE 25 MG TAB PO SCH (08:07)
[2022-05-27] MEDS: lisinopriL 20 MG TAB PO SCH ×2 (08:07→08:09)
[2022-05-27] MEDS: GABAPENTIN 100 MG CAP PO SCH ×3 (08:07→21:25)
[2022-05-27] MEDS: HEPARIN SODIUM,PORCINE/PF 5,000 UNIT/0.5 ML SYRINGE SQ SCH ×2 (08:08→21:25)
[2022-05-27 08:58] LABS: Basophils # (A) 0.01 X 10*3/uL (0.00-0.10); Basophils % (A) 0.1 %; Eosinophils # (A) 0 X 10*3/uL (0.04-0.35); Eosinophils % (A) 0 %; HCT 37.9 % (37.2-46.3); HGB 12.1 g/dL (12.0-15.0); Immature Grans, Automated 0.8 %; Lymphocytes # (A) 0.59 X 10*3/uL (0.90-5.00); Lymphocytes % (A) 6.8 %; MCH 30.3 pg (27.0-32.0); MCHC 31.9 g/dL (32.0-37.0); MCV 94.8 fL (80.0-97.0); Mean Platelet Volume 10.9 fL (9.5-12.2); Monocytes # (A) 0.32 X 10*3/uL (0.20-1.00); Monocytes % (A) 3.7 %; NRBC Per 100 WBC 0 /100 WBCS (0.0-0.0); Neutrophils # (A) 7.75 X 10*3/uL (1.80-7.70); Neutrophils % (A) 88.6 %; Platelet Count 193 X 10*3/uL (140-440); RDW 14.6 % (11.5-14.5); WBC 8.74 X 10*3/uL (4.50-10.00)
[2022-05-27 09:17] LABS: African American GFR (CKD) 47.5 (60.0-200.0); Anion Gap 14.9 mmol/L (10.00-18.00); BUN/Creat Ratio 23.85 Ratio (12.00-20.00); Calcium 8.4 mg/dL (8.7-10.3); Carbon Dioxide 18.1 mmol/L (20.0-27.5); Potassium 5.6 mmol/L (3.5-5.5)
[2022-05-27 12:07] LABS: Glucose,Whole Blood 290 mg/dL (70-110)
--- NOTE | 2022-05-27 14:32 | P.PN ---
Subjective Progress Note Date: 05/26/22 This is a pleasant 71-year-old female with past medical history of chronic cystitis with history of MDR bacteria,adrenal insufficency, T2DM, migraine, chronic pain, cervical radiculopathy -scheduled for surgery in June 2022 And multiple other medical issues presented to the ER with intractable cervical pain, accompanied by nausea, vomiting, sleep deprivation and fatigue. Reports over the last couple of days, pain intensified, radiating down her neck, right arm , right hand with numbness and tingling of the last 2 digits. Has not been able to take her home medications 2 days secondary to nausea and vomiting. Tachycardic with heart rates as high as 130s, EKG reporting sinus tachycardia, troponin 0.029. Denies chest pain, palpitations or shortness of breath. T-max 99.1, normal WBC. Hemoglobin 16.3, platelets 201, sodium 139, potassium 4, bicarb 17, BUN 17, creatinine 0.92, POC glucose 277, hemoglobin A1c 9.2, magnesium 1.7. 05/26/2022 receiving Dilaudid every 3 hours -persistent pain,reports unchanged, accompanied by ongoing nausea. Hypotensive, receiving fluid bolus. Denies chest pain, palpitations or shortness of breath. Hyperglycemia, insulin pump off. Hemoglobin A1c 9.2. Afebrile. Objective - Vital Signs Vital signs: Vital Signs Temp 98.7 F 05/26/22 07:00 Pulse 130 H 05/26/22 07:00 Resp 18 05/26/22 07:00 BP 92/57 05/26/22 07:00 Pulse Ox 94 L 05/26/22 07:00 FiO2 Intake & Output 05/25/22 05/26/22 05/26/22 18:59 06:59 18:59 Intake Total 0 Output Total 200 Balance 0 -200 Weight 72.575 kg 72.575 kg Intake: Oral 0 Output: Urine 200 Other: Voiding Method External Catheter External Catheter # Voids 2 - Exam - Exam General: Alert and oriented 3, lying in bed, fatigued Eyes: PERRL, EOMI, conjunctiva normal HENT: normocephalic, mucus membranes moist Neck: supple, no JVD, tender trapezius, scapula, occipital Lungs: normal respiratory effort, no wheezes or rales. CV: Regular rate and rhythm, no murmur. Peripheral pulses 2+. Abdomen: soft, nondistended, no organomegaly. No guarding, no rigidity, positive bowel sounds Skin: warm and dry. Neuro: Cranial nerves II through XII grossly intact. Strength and sensation grossly intact. - Labs CBC & Chem 7: 05/27/22 05:34 05/27/22 05:34 Labs: Abnormal Lab Results - Last 24 Hours (Table) 05/25/22 05/25/22 05/25/22 Range/Units 05:40 16:50 21:08 POC Glucose (mg/dL) 259 H 277 H (70-110) mg/dL Hemoglobin A1c 9.2 H (0.0-6.0) % 05/26/22 05/26/22 Range/Units 06:34 12:09 POC Glucose (mg/dL) 340 H 190 H (70-110) mg/dL Hemoglobin A1c (0.0-6.0) % Assessment and Plan Assessment: Acute on chronic cervical radiculopathy, intractable pain, scheduled for fusion C5 C6, June 2022 Hypotension, requiring IV fluid bolus. Acute Dehydration secondary to nausea and vomiting related to the above Acute renal insufficiency secondary to the above Acute sleep deprivation related to all the above Cephalgia in a patient with history of chronic migraines Recent covid, June 2021 Diabetes type 2 on insulin pump, hyperglycemic, A1c 9.2 Diabetic peripheral neuropathy Hypertension Hyperlipidemia Osteoarthritis History of DVT Obstructive sleep apnea on CPAP at home History of nephrolithiasis Adrenal insufficiency on hydrocortisone 3 times daily. 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 Plan: Continue on current medication regime ,monitoring and symptomatic treatment. IV fluid bolus for hypotension. Pain management, antiemetics. Adjust to stress dose steroids. Long-acting insulin added to med regime in addition to NovoLog sliding scale, close monitoring of Accu-Cheks. Prognosis guarded given multiple complex medical issues. The impression and plan of care has been dictated as directed. : I performed a history and examination of this patient, discussed the same with the dictator. I agree with the dictator's note ,documented as a scribe. Any additional findings or plans will be noted.
--- NOTE | 2022-05-27 14:47 | P.PN ---
Subjective Progress Note Date: 05/27/22 This is a pleasant 71-year-old female with past medical history of chronic cystitis with history of MDR bacteria,adrenal insufficency, T2DM, migraine, chronic pain, cervical radiculopathy -scheduled for surgery in June 2022 And multiple other medical issues presented to the ER with intractable cervical pain, accompanied by nausea, vomiting, sleep deprivation and fatigue. Reports over the last couple of days, pain intensified, radiating down her neck, right arm , right hand with numbness and tingling of the last 2 digits. Has not been able to take her home medications 2 days secondary to nausea and vomiting. Tachycardic with heart rates as high as 130s, EKG reporting sinus tachycardia, troponin 0.029. Denies chest pain, palpitations or shortness of breath. T-max 99.1, normal WBC. Hemoglobin 16.3, platelets 201, sodium 139, potassium 4, bicarb 17, BUN 17, creatinine 0.92, POC glucose 277, hemoglobin A1c 9.2, magnesium 1.7. 05/26/2022 receiving Dilaudid every 3 hours -persistent pain,reports unchanged, accompanied by ongoing nausea. Hypotensive, receiving fluid bolus. Denies chest pain, palpitations or shortness of breath. Hyperglycemia, insulin pump off. Hemoglobin A1c 9.2. Afebrile. 05/27/2022 requiring Dilaudid every 3 hours throughout the night, reports pain had eased up but returned to a "10" this morning. Discussed attempting to lengthen periods between Dilaudid doses. Hypotensive, Midodrin initiated, lisinopril discontinued. Labs pending. Denies chest pain, palpitations or shortness of breath. Hyperglycemic, on IV steroids. Objective - Vital Signs Vital signs: Vital Signs Temp 98.2 F 05/27/22 07:00 Pulse 77 05/27/22 07:00 Resp 22 05/27/22 07:00 BP 111/54 05/27/22 07:00 Pulse Ox 98 05/27/22 07:28 FiO2 Intake & Output 05/26/22 05/27/22 05/27/22 18:59 06:59 18:59 Intake Total 120 Output Total 500 Balance 120 -500 Weight 72.575 kg Intake: Oral 120 Output: Urine 500 Other: Voiding Method External Catheter External Catheter External Catheter # Voids 1 1 # Bowel Movements 0 - Exam - Exam General: Alert and oriented 3, lying in bed, appears uncomfortable Eyes: PERRL, EOMI, conjunctiva normal HENT: normocephalic, mucus membranes moist Neck: supple, no JVD, tender trapezius, scapula, occipital Lungs: normal respiratory effort, no wheezes or rales. CV: Regular rate and rhythm, no murmur. Peripheral pulses 2+. Abdomen: soft, nondistended, no organomegaly. No guarding, no rigidity, positive bowel sounds Skin: warm and dry. Neuro: Cranial nerves II through XII grossly intact. Strength and sensation grossly intact. - Labs CBC & Chem 7: 05/27/22 05:34 05/27/22 05:34 Labs: Abnormal Lab Results - Last 24 Hours (Table) 05/26/22 05/26/22 05/27/22 Range/Units 16:47 20:48 05:34 RBC 4.00 L (4.10-5.20) X 10*6/uL MCHC 31.9 L (32.0-37.0) g/dL RDW 14.6 H (11.5-14.5) % Immature Gran # 0.07 H (0.00-0.04) X 10*3/uL Neutrophils # 7.75 H (1.80-7.70) X 10*3/uL Lymphocytes # 0.59 L (0.90-5.00) X 10*3/uL Eosinophils # 0 L (0.04-0.35) X 10*3/uL Potassium (3.5-5.5) mmol/L Carbon Dioxide (20.0-27.5) mmol/L BUN (9.0-27.0) mg/dL Est GFR (CKD-EPI)AfAm (60.0-200.0) Est GFR (CKD-EPI)NonAf (60.0-200.0) BUN/Creatinine Ratio (12.00-20.00) Ratio Glucose (70-110) mg/dL POC Glucose (mg/dL) 284 H 318 H (70-110) mg/dL Calcium (8.7-10.3) mg/dL 05/27/22 05/27/22 05/27/22 Range/Units 05:34 06:47 12:05 RBC (4.10-5.20) X 10*6/uL MCHC (32.0-37.0) g/dL RDW (11.5-14.5) % Immature Gran # (0.00-0.04) X 10*3/uL Neutrophils # (1.80-7.70) X 10*3/uL Lymphocytes # (0.90-5.00) X 10*3/uL Eosinophils # (0.04-0.35) X 10*3/uL Potassium 5.6 H (3.5-5.5) mmol/L Carbon Dioxide 18.1 L (20.0-27.5) mmol/L BUN 31.0 H (9.0-27.0) mg/dL Est GFR (CKD-EPI)AfAm 47.5 L (60.0-200.0) Est GFR (CKD-EPI)NonAf 41.0 L (60.0-200.0) BUN/Creatinine Ratio 23.85 H (12.00-20.00) Ratio Glucose 359 H (70-110) mg/dL POC Glucose (mg/dL) 355 H 290 H (70-110) mg/dL Calcium 8.4 L (8.7-10.3) mg/dL Assessment and Plan Assessment: Acute on chronic cervical radiculopathy, intractable pain, scheduled for fusion C5 C6, June 2022 Hypotension, requiring IV fluid bolus. Acute Dehydration secondary to nausea and vomiting related to the above Acute renal insufficiency secondary to the above Acute sleep deprivation related to all the above Cephalgia in a patient with history of chronic migraines Recent covid, June 2021 Diabetes type 2 on insulin pump, hyperglycemic, A1c 9.2 Diabetic peripheral neuropathy Hypertension Hyperlipidemia Osteoarthritis History of DVT Obstructive sleep apnea on CPAP at home History of nephrolithiasis Adrenal insufficiency on hydrocortisone 3 times daily. 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 Plan: Continue on current medication regime ,monitoring and symptomatic treatment. Labs pending. Pain management.continue with antiemetics. Long- acting insulin further increased, close monitoring of Accu-Cheks. Close monitoring of BPs- midodrin added to med regimine. PT/OT consulted. Prognosis guarded given multiple complex medical issues. The impression and plan of care has been dictated as directed. : I performed a history and examination of this patient, discussed the same with the dictator. I agree with the dictator's note ,documented as a scribe. Any additional findings or plans will be noted.
[2022-05-27 17:14] LABS: Glucose,Whole Blood 360 mg/dL (70-110)
[2022-05-27] MEDS ORDERED: INSULIN DETEMIR (LEVEMIR) 100 UNIT/ML SYR SQ SCH (21:00)
[2022-05-27] MEDS: ESCITALOPRAM 10 MG TAB PO SCH (21:25)
[2022-05-27] MEDS: METOPROLOL SUCCINATE (ER) 100 MG TAB.ER.24H PO SCH (21:25)
[2022-05-27 21:30] LABS: Glucose,Whole Blood 387 mg/dL (70-110)
[2022-05-28] MEDS: HYDROmorphone 1 MG/ML 1 ML SYRINGE IVP PRN ×7 (00:24→21:16)
[2022-05-28] MEDS: SODIUM CHLORIDE 0.9% 1,000 ML IV SCH (05:58)
[2022-05-28 06:29] LABS: Glucose,Whole Blood 337 mg/dL (70-110)
[2022-05-28] MEDS: INSULIN DETEMIR (LEVEMIR) 100 UNIT/ML SYR SQ SCH ×2 (06:32→21:15)
[2022-05-28] MEDS: MIDODRINE 5 MG TAB PO SCH ×2 (06:33→16:22)
[2022-05-28] MEDS: PANTOPRAZOLE 40 MG TABLET PO SCH (06:33)
[2022-05-28] MEDS: INSULIN ASPART (NovoLOG) 100 UNIT/ML VIAL SQ SCH ×4 (06:33→21:15)
[2022-05-28] MEDS: GABAPENTIN 100 MG CAP PO SCH ×3 (07:26→21:16)
[2022-05-28] MEDS: methylPREDNISolone SOD SUCCI 40 MG/ML 1 ML VIAL IV SCH ×2 (07:27→16:22)
[2022-05-28] MEDS: busPIRone HCl 5 MG TAB PO SCH ×2 (07:27→21:16)
[2022-05-28] MEDS: SPIRONOLACTONE 25 MG TAB PO SCH (07:27)
[2022-05-28] MEDS: HEPARIN SODIUM,PORCINE/PF 5,000 UNIT/0.5 ML SYRINGE SQ SCH ×2 (07:27→21:15)
[2022-05-28] MEDS: ASPIRIN 81 MG PO SCH (07:27)
[2022-05-28 12:39] LABS: Glucose,Whole Blood 402 mg/dL (70-110)
[2022-05-28] MEDS ORDERED: INSULIN DETEMIR (LEVEMIR) 100 UNIT/ML SYR SQ ONE (15:06)
[2022-05-28 17:09] LABS: Glucose,Whole Blood 257 mg/dL (70-110)
[2022-05-28 21:07] LABS: Glucose,Whole Blood 278 mg/dL (70-110)
[2022-05-28] MEDS: ESCITALOPRAM 10 MG TAB PO SCH (21:16)
[2022-05-28] MEDS: METOPROLOL SUCCINATE (ER) 100 MG TAB.ER.24H PO SCH (21:16)
[2022-05-29] MEDS: HYDROmorphone 1 MG/ML 1 ML SYRINGE IVP PRN ×8 (00:04→23:07)
[2022-05-29] MEDS: methylPREDNISolone SOD SUCCI 40 MG/ML 1 ML VIAL IV SCH ×4 (00:04→23:08)
[2022-05-29 06:15] LABS: Glucose,Whole Blood 269 mg/dL (70-110)
[2022-05-29] MEDS: SODIUM CHLORIDE 0.9% 1,000 ML IV SCH (06:18)
[2022-05-29] MEDS: INSULIN ASPART (NovoLOG) 100 UNIT/ML VIAL SQ SCH ×4 (06:22→21:07)
[2022-05-29] MEDS: MIDODRINE 5 MG TAB PO SCH ×2 (06:23→17:52)
[2022-05-29] MEDS: INSULIN DETEMIR (LEVEMIR) 100 UNIT/ML SYR SQ SCH ×2 (06:23→21:07)
[2022-05-29] MEDS: PANTOPRAZOLE 40 MG TABLET PO SCH (06:23)
[2022-05-29] MEDS: ONDANSETRON 4 MG/2 ML VIAL IVP PRN ×2 (06:31→19:53)
[2022-05-29] MEDS: busPIRone HCl 5 MG TAB PO SCH ×2 (09:34→21:08)
[2022-05-29] MEDS: HEPARIN SODIUM,PORCINE/PF 5,000 UNIT/0.5 ML SYRINGE SQ SCH ×2 (09:34→21:07)
[2022-05-29] MEDS: ASPIRIN 81 MG PO SCH (09:34)
[2022-05-29] MEDS: SPIRONOLACTONE 25 MG TAB PO SCH (09:35)
[2022-05-29 09:46] LABS: Basophils # (A) 0.01 X 10*3/uL (0.00-0.10); Basophils % (A) 0.1 %; Eosinophils # (A) 0 X 10*3/uL (0.04-0.35); Eosinophils % (A) 0 %; HCT 36.1 % (37.2-46.3); HGB 11.3 g/dL (12.0-15.0); Immature Grans, Automated 1.7 %; Lymphocytes % (A) 6.2 %; MCH 29.4 pg (27.0-32.0); MCHC 31.3 g/dL (32.0-37.0); Monocytes # (A) 0.35 X 10*3/uL (0.20-1.00); Monocytes % (A) 4.3 %; NRBC Per 100 WBC 0 /100 WBCS (0.0-0.0); Neutrophils # (A) 7.13 X 10*3/uL (1.80-7.70); Neutrophils % (A) 87.7 %; Platelet Count 214 X 10*3/uL (140-440); RBC 3.84 X 10*6/uL (4.10-5.20); RDW 14.3 % (11.5-14.5); WBC 8.13 X 10*3/uL (4.50-10.00)
[2022-05-29 09:58] LABS: African American GFR (CKD) 62.2 (60.0-200.0); Anion Gap 7.9 mmol/L (10.00-18.00); BUN/Creat Ratio 36.63 Ratio (12.00-20.00); Blood Urea Nitrogen 38.1 mg/dL (9.0-27.0); Calcium 8.7 mg/dL (8.7-10.3); Carbon Dioxide 26.4 mmol/L (20.0-27.5); Non-African American GFR(CKD) 53.6 (60.0-200.0)
[2022-05-29] MEDS: GABAPENTIN 100 MG CAP PO SCH ×3 (11:47→21:08)
[2022-05-29 12:21] LABS: Glucose,Whole Blood 152 mg/dL (70-110)
[2022-05-29 16:48] LABS: Glucose,Whole Blood 174 mg/dL (70-110)
[2022-05-29 18:21] LABS: Appearance,Urine Clear (Clear); Bacteria,Urine Rare /hpf; Bilirubin,Urine Negative (Negative); Blood,Urine Trace (Negative); Color,Urine Light Yellow; Glucose,Urine (UA) Trace (Negative); Ketones,Urine Trace (Negative); Leukocyte Esterase,Urine Moderate (Negative); Mucus,Urine Rare /hpf; Nitrite,Urine Negative (Negative); PH, Urine 5.5 (5.0-8.0); Protein,Urine Trace (Negative); RBC,Urine 3 /hpf (0-5); Specific Gravity,Urine 1.018 (1.001-1.035); Squamous Epithelial Cell,Urine 4 /hpf (0-4); Urobilinogen,Urine <2.0 mg/dL (<2.0); WBC,Urine 6 /hpf (0-5)
[2022-05-29 20:37] LABS: Glucose,Whole Blood 328 mg/dL (70-110)
[2022-05-29] MEDS ORDERED: CEPHALEXIN 250 MG CAP PO SCH (21:00)
[2022-05-29] MEDS: METOPROLOL SUCCINATE (ER) 100 MG TAB.ER.24H PO SCH (21:08)
[2022-05-29] MEDS: ESCITALOPRAM 10 MG TAB PO SCH (21:08)
--- NOTE | 2022-05-30 00:03 | P.PN ---
Subjective Progress Note Date: 05/28/22 This is a pleasant 71-year-old female with past medical history of chronic cystitis with history of MDR bacteria,adrenal insufficency, T2DM, migraine, chronic pain, cervical radiculopathy -scheduled for surgery in June 2022 And multiple other medical issues presented to the ER with intractable cervical pain, accompanied by nausea, vomiting, sleep deprivation and fatigue. Reports over the last couple of days, pain intensified, radiating down her neck, right arm , right hand with numbness and tingling of the last 2 digits. Has not been able to take her home medications 2 days secondary to nausea and vomiting. Tachycardic with heart rates as high as 130s, EKG reporting sinus tachycardia, troponin 0.029. Denies chest pain, palpitations or shortness of breath. T-max 99.1, normal WBC. Hemoglobin 16.3, platelets 201, sodium 139, potassium 4, bicarb 17, BUN 17, creatinine 0.92, POC glucose 277, hemoglobin A1c 9.2, magnesium 1.7. 05/26/2022 receiving Dilaudid every 3 hours -persistent pain,reports unchanged, accompanied by ongoing nausea. Hypotensive, receiving fluid bolus. Denies ches t pain, palpitations or shortness of breath. Hyperglycemia, insulin pump off. Hemoglobin A1c 9.2. Afebrile. 05/27/2022 requiring Dilaudid every 3 hours throughout the night, reports pain had eased up but returned to a "10" this morning. Discussed attempting to lengthen periods between Dilaudid doses. Hypotensive, Midodrin initiated, lisinopril discontinued. Labs pending. Denies chest pain, palpitations or shortness of breath. Hyperglycemic, on IV steroids. 05/28/2022 Patient is currently lying in bed. Awake alert and oriented x3. Still complains of neck pain. Patient is being continued methylprednisolone 40 mg every 8 hourly and also on [place] 10 4 times daily as needed along with Dilaudid 1 mg daily only as needed for pain. No complaints of weakness in the hands. No fever no chills. Patient's blood sugar is elevated up to 402 today afternoon. Lantus dose will be increased and patient was given extra dose. No nausea vomiting or diarrhea. Denies any complaints of chest pain or shortness of breath. Blood pressures stable. Patient is also on midodrine 5 mg twice daily. Current medications reviewed. Objective - Vital Signs Vital signs: Vital Signs Temp 97.7 F 05/28/22 07:00 Pulse 61 05/28/22 07:00 Resp 18 05/28/22 07:00 BP 120/61 05/28/22 07:00 Pulse Ox 96 05/28/22 07:00 FiO2 Intake & Output 05/27/22 05/28/22 05/28/22 18:59 06:59 18:59 Output Total 500 1400 Balance -500 -1400 Output: Urine 500 1400 Other: Voiding Method External Catheter Diaper Diaper External Catheter External Catheter # Voids 1 # Bowel Movements 0 0 1 - Exam - Exam General: Alert and oriented 3, lying in bed, appears uncomfortable Eyes: PERRL, EOMI, conjunctiva normal HENT: normocephalic, mucus membranes moist Neck: supple, no JVD, tender trapezius, scapula, occipital Lungs: normal respiratory effort, no wheezes or rales. CV: Regular rate and rhythm, no murmur. Peripheral pulses 2+. Abdomen: soft, nondistended, no organomegaly. No guarding, no rigidity, positive bowel sounds Skin: warm and dry. Neuro: Cranial nerves II through XII grossly intact. Strength and sensation grossly intact. - Labs CBC & Chem 7: 05/29/22 06:19 05/29/22 06:19 Labs: Abnormal Lab Results - Last 24 Hours (Table) 05/27/22 05/27/22 05/28/22 Range/Units 17:09 21:28 06:27 POC Glucose (mg/dL) 360 H 387 H 337 H (70-110) mg/dL 05/28/22 Range/Units 12:38 POC Glucose (mg/dL) 402 H (70-110) mg/dL Assessment and Plan Assessment: Acute on chronic cervical radiculopathy, intractable pain, scheduled for fusion C5 C6, June 2022 At [facility]. Hypotension, requiring IV fluid bolus. Acute Dehydration secondary to nausea and vomiting related to the above Acute renal insufficiency secondary to the above Acute sleep deprivation related to all the above Cephalgia in a patient with history of chronic migraines Recent covid, June 2021 Diabetes type 2 on insulin pump, hyperglycemic, A1c 9.2 Diabetic peripheral neuropathy Hypertension Hyperlipidemia Osteoarthritis History of DVT Obstructive sleep apnea on CPAP at home History of nephrolithiasis Adrenal insufficiency on hydrocortisone 3 times daily. 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 Plan: Continue on current medication regime ,monitoring and symptomatic treatment. Labs pending. Pain management.continue with antiemetics. Long- acting insulin further increased, close monitoring of Accu-Cheks. Close monitoring of BPs- Patient was started on midodrine.. PT/OT consulted. Prognosis guarded given multiple complex medical issues. Time with Patient: Greater than 30
--- NOTE | 2022-05-30 00:05 | P.PN ---
Subjective Progress Note Date: 05/29/22 This is a pleasant 71-year-old female with past medical history of chronic cystitis with history of MDR bacteria,adrenal insufficency, T2DM, migraine, chronic pain, cervical radiculopathy -scheduled for surgery in June 2022 And multiple other medical issues presented to the ER with intractable cervical pain, accompanied by nausea, vomiting, sleep deprivation and fatigue. Reports over the last couple of days, pain intensified, radiating down her neck, right arm , right hand with numbness and tingling of the last 2 digits. Has not been able to take her home medications 2 days secondary to nausea and vomiting. Tachycardic with heart rates as high as 130s, EKG reporting sinus tachycardia, troponin 0.029. Denies chest pain, palpitations or shortness of breath. T-max 99.1, normal WBC. Hemoglobin 16.3, platelets 201, sodium 139, potassium 4, bicarb 17, BUN 17, creatinine 0.92, POC glucose 277, hemoglobin A1c 9.2, magnesium 1.7. 05/26/2022 receiving Dilaudid every 3 hours -persistent pain,reports unchanged, accompanied by ongoing nausea. Hypotensive, receiving fluid bolus. Denies ches t pain, palpitations or shortness of breath. Hyperglycemia, insulin pump off. Hemoglobin A1c 9.2. Afebrile. 05/27/2022 requiring Dilaudid every 3 hours throughout the night, reports pain had eased up but returned to a "10" this morning. Discussed attempting to lengthen periods between Dilaudid doses. Hypotensive, Midodrin initiated, lisinopril discontinued. Labs pending. Denies chest pain, palpitations or shortness of breath. Hyperglycemic, on IV steroids. 05/28/2022 Patient is currently lying in bed. Awake alert and oriented x3. Still complains of neck pain. Patient is being continued methylprednisolone 40 mg every 8 hourly and also on [place] 10 4 times daily as needed along with Dilaudid 1 mg daily only as needed for pain. No complaints of weakness in the hands. No fever no chills. Patient's blood sugar is elevated up to 402 today afternoon. Lantus dose will be increased and patient was given extra dose. No nausea vomiting or diarrhea. Denies any complaints of chest pain or shortness of breath. Blood pressures stable. Patient is also on midodrine 5 mg twice daily. 05/29/2022 Patient states her her neck pain remains the same. Requesting to continue IV Dilaudid and also on methylprednisolone 40 mg every 8 hourly. Blood sugars better but still elevated today. Preprandial dose was added. Blood pressure is elevated today. Currently on midodrine 5 mg twice daily. Denied any complaints of nausea vomiting abdominal pain or diarrhea. No cough or sputum production. No fever no chills. No other acute overnight issues. Current medications reviewed. Objective - Vital Signs Vital signs: Vital Signs Temp 98.3 F 05/29/22 13:52 Pulse 63 05/29/22 13:52 Resp 18 05/29/22 13:52 BP 147/68 05/29/22 13:52 Pulse Ox 91 L 05/29/22 13:52 FiO2 Intake & Output 05/29/22 05/29/22 05/30/22 06:59 18:59 06:59 Output Total 300 700 Balance -300 -700 Output: Urine 300 700 Other: Voiding Method Diaper External Catheter # Bowel Movements 0 - Exam - Exam General: Alert and oriented 3, lying in bed, appears uncomfortable Eyes: PERRL, EOMI, conjunctiva normal HENT: normocephalic, mucus membranes moist Neck: supple, no JVD, tender trapezius, scapula, occipital Lungs: normal respiratory effort, no wheezes or rales. CV: Regular rate and rhythm, no murmur. Peripheral pulses 2+. Abdomen: soft, nondistended, no organomegaly. No guarding, no rigidity, positive bowel sounds Skin: warm and dry. Neuro: Cranial nerves II through XII grossly intact. Strength and sensation grossly intact. - Labs CBC & Chem 7: 05/29/22 06:19 05/29/22 06:19 Labs: Abnormal Lab Results - Last 24 Hours (Table) 05/29/22 05/29/22 05/29/22 Range/Units 06:14 06:19 06:19 RBC 3.84 L (4.10-5.20) X 10*6/uL Hgb 11.3 L (12.0-15.0) g/dL Hct 36.1 L (37.2-46.3) % MCHC 31.3 L (32.0-37.0) g/dL Immature Gran # 0.14 H (0.00-0.04) X 10*3/uL Lymphocytes # 0.50 L (0.90-5.00) X 10*3/uL Eosinophils # 0 L (0.04-0.35) X 10*3/uL Anion Gap 7.90 L (10.00-18.00) mmol/L BUN 38.1 H (9.0-27.0) mg/dL Est GFR (CKD-EPI)NonAf 53.6 L (60.0-200.0) BUN/Creatinine Ratio 36.63 H (12.00-20.00) Ratio Glucose 299 H (70-110) mg/dL POC Glucose (mg/dL) 269 H (70-110) mg/dL Urine Protein (Negative) Urine Glucose (UA) (Negative) Urine Ketones (Negative) Urine Blood (Negative) Ur Leukocyte Esterase (Negative) Urine WBC (0-5) /hpf Urine Bacteria (None) /hpf Urine Mucus (None) /hpf 05/29/22 05/29/22 05/29/22 Range/Units 12:20 16:47 18:06 RBC (4.10-5.20) X 10*6/uL Hgb (12.0-15.0) g/dL Hct (37.2-46.3) % MCHC (32.0-37.0) g/dL Immature Gran # (0.00-0.04) X 10*3/uL Lymphocytes # (0.90-5.00) X 10*3/uL Eosinophils # (0.04-0.35) X 10*3/uL Anion Gap (10.00-18.00) mmol/L BUN (9.0-27.0) mg/dL Est GFR (CKD-EPI)NonAf (60.0-200.0) BUN/Creatinine Ratio (12.00-20.00) Ratio Glucose (70-110) mg/dL POC Glucose (mg/dL) 152 H 174 H (70-110) mg/dL Urine Protein Trace H (Negative) Urine Glucose (UA) Trace H (Negative) Urine Ketones Trace H (Negative) Urine Blood Trace H (Negative) Ur Leukocyte Esterase Moderate H (Negative) Urine WBC 6 H (0-5) /hpf Urine Bacteria Rare H (None) /hpf Urine Mucus Rare H (None) /hpf 1211/22 Range/Units 20:36 RBC (4.10-5.20) X 10*6/uL Hgb (12.0-15.0) g/dL Hct (37.2-46.3) % MCHC (32.0-37.0) g/dL Immature Gran # (0.00-0.04) X 10*3/uL Lymphocytes # (0.90-5.00) X 10*3/uL Eosinophils # (0.04-0.35) X 10*3/uL Anion Gap (10.00-18.00) mmol/L BUN (9.0-27.0) mg/dL Est GFR (CKD-EPI)NonAf (60.0-200.0) BUN/Creatinine Ratio (12.00-20.00) Ratio Glucose (70-110) mg/dL POC Glucose (mg/dL) 328 H (70-110) mg/dL Urine Protein (Negative) Urine Glucose (UA) (Negative) Urine Ketones (Negative) Urine Blood (Negative) Ur Leukocyte Esterase (Negative) Urine WBC (0-5) /hpf Urine Bacteria (None) /hpf Urine Mucus (None) /hpf Assessment and Plan Assessment: Acute on chronic cervical radiculopathy, intractable pain, scheduled for fusion C5 C6, June 2022 At [facility]. Hypotension, requiring IV fluid bolus. Acute Dehydration secondary to nausea and vomiting related to the above Acute renal insufficiency secondary to the above Acute sleep deprivation related to all the above Cephalgia in a patient with history of chronic migraines Recent covid, June 2021 Diabetes type 2 on insulin pump, hyperglycemic, A1c 9.2 Diabetic peripheral neuropathy Hypertension Hyperlipidemia Osteoarthritis History of DVT Obstructive sleep apnea on CPAP at home History of nephrolithiasis Adrenal insufficiency on hydrocortisone 3 times daily. 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 Plan: Continue on current medication regime ,monitoring and symptomatic treatment. Labs pending. Pain management.continue with antiemetics. Long- acting insulin further increased, close monitoring of Accu-Cheks. Close monitoring of BPs- Patient was started on midodrine.. Blood pressure is elevated today. Consider titrating down midodrine if the blood pressure remains stable.PT/OT consulted. Prognosis guarded given multiple complex medical issues. Anticipate discharge in next 24 to 48 hours. Time with Patient: Greater than 30
[2022-05-30] MEDS: HYDROmorphone 1 MG/ML 1 ML SYRINGE IVP PRN ×4 (02:25→12:20)
[2022-05-30 04:25] VITALS: TEMP 98
[2022-05-30] MEDS: SODIUM CHLORIDE 0.9% 1,000 ML IV SCH (05:38)
[2022-05-30] MEDS: MIDODRINE 5 MG TAB PO SCH (05:52)
[2022-05-30] MEDS: PANTOPRAZOLE 40 MG TABLET PO SCH (05:52)
[2022-05-30 05:56] LABS: Glucose,Whole Blood 278 mg/dL (70-110)
[2022-05-30] MEDS: INSULIN ASPART (NovoLOG) 100 UNIT/ML VIAL SQ SCH ×4 (05:57→12:48)
[2022-05-30] MEDS: INSULIN DETEMIR (LEVEMIR) 100 UNIT/ML SYR SQ SCH (05:57)
[2022-05-30 08:21] VITALS: BP 182/92; PULSE 56; RESP 16
[2022-05-30] MEDS ORDERED: predniSONE 20 MG TAB PO STA (08:33)
[2022-05-30] MEDS ORDERED: buPROPion SR 100 MG TABLET.ER PO SCH (09:00)
[2022-05-30] MEDS: ASPIRIN 81 MG PO SCH (09:09)
[2022-05-30] MEDS: ONDANSETRON 4 MG/2 ML VIAL IVP PRN (09:10)
[2022-05-30] MEDS: HEPARIN SODIUM,PORCINE/PF 5,000 UNIT/0.5 ML SYRINGE SQ SCH (09:10)
[2022-05-30] MEDS: GABAPENTIN 100 MG CAP PO SCH (09:10)
[2022-05-30] MEDS: SPIRONOLACTONE 25 MG TAB PO SCH (09:10)
[2022-05-30] MEDS: busPIRone HCl 5 MG TAB PO SCH (09:10)
[2022-05-30] MEDS: methylPREDNISolone SOD SUCCI 40 MG/ML 1 ML VIAL IV SCH (10:07)
[2022-05-30 12:35] LABS: Glucose,Whole Blood 166 mg/dL (70-110)
--- NOTE | 2022-05-30 16:35 | P.DS ---
Providers Date of admission: 05/25/22 05:24 Expected date of discharge: 05/30/22 Attending physician: Andrew Gonsales MD Primary care physician: Andrew Gonsales MD Hospital Course: Final Diagnoses: Acute on chronic cervical radiculopathy, intractable pain, improved -scheduled for fusion C5 C6, June 2022 Hypotension, requiring IV fluid bolus, resolved. Acute Dehydration secondary to nausea and vomiting related to the above, resolved Acute renal insufficiency secondary to the above, improved Acute sleep deprivation related to all the above, improved Cephalgia in a patient with history of chronic migraines Recent covid, June 2021 Diabetes type 2 on insulin pump, hyperglycemic, A1c 9.2 Diabetic peripheral neuropathy Hypertension Hyperlipidemia Osteoarthritis History of DVT Obstructive sleep apnea on CPAP at home History of nephrolithiasis Adrenal insufficiency on hydrocortisone 3 times daily. 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 Hospital course:This is a pleasant 71-year-old female with past medical history of chronic cystitis with history of MDR bacteria,adrenal insufficency, T2DM, migraine, chronic pain, cervical radiculopathy -scheduled for surgery in June 2022 And multiple other medical issues presented to the ER with intractable cervical pain, accompanied by nausea, vomiting, sleep deprivation and fatigue. Reports over the last couple of days, pain intensified, radiating down her neck, right arm , right hand with numbness and tingling of the last 2 digits. Has not been able to take her home medications 2 days secondary to nausea and vomiting. Tachycardic with heart rates as high as 130s, EKG reporting sinus tachycardia, troponin 0.029. Denies chest pain, palpitations or shortness of breath. T-max 99.1, normal WBC. Hemoglobin 16.3, platelets 201, sodium 139, potassium 4, bicarb 17, BUN 17, creatinine 0.92, POC glucose 277, hemoglobin A1c 9.2, magnesium 1.7. 05/26/2022 receiving Dilaudid every 3 hours -persistent pain,reports unchanged, accompanied by ongoing nausea. Hypotensive, receiving fluid bolus. Denies chest pain, palpitations or shortness of breath. Hyperglycemia, insulin pump off. Hemoglobin A1c 9.2. Afebrile. 05/27/2022 requiring Dilaudid every 3 hours throughout the night, reports pain had eased up but returned to a "10" this morning. Discussed attempting to lengthen periods between Dilaudid doses. Hypotensive, Midodrin initiated, lisinopril discontinued. Labs pending. Denies chest pain, palpitations or shortness of breath. Hyperglycemic, on IV steroids. Significant clinical improvement. Patient will be discharged home today in a stable condition with guarded prognosis. Prednisone taper then patient to resume Cortef. Regarding pain management, patient to resume home pain med. regimen. The impression and plan of care has been dictated as directed. : I performed a history and examination of this patient, discussed the same with the dictator. I agree with the dictator's note ,documented as a scribe. Any additional findings or plans will be noted. Patient Condition at Discharge: Stable Plan - Discharge Summary Discharge Rx Participant: No New Discharge Prescriptions: New predniSONE 10 mg PO DIRECTED #18 tab Continue Meclizine [Antivert] 25 mg PO QID PRN PRN Reason: Vertigo Aspirin 81 mg PO DAILY #0 Ferrous Sulfate [Iron (65 MG Elemental)] 325 mg PO DAILY Vitamin B-Complex Drops 1 drop PO BID Thiamine [Vitamin B-1] 100 mg PO DAILY Folic Acid 0.4 mg PO DAILY L.acidoph,Paracasei, B.lactis [Probiotic] 2 cap PO BID Melatonin 5 mg PO HS PRN PRN Reason: Insomnia Potassium 99 mg PO DAILY Gabapentin [Neurontin] 100 mg PO TID #9 cap Spironolactone 50 mg PO DAILY C,E,Zinc,Copper 11/Ybmqd3g/Lut [Ocuvite Adult 50 Plus Softgel] 1 cap PO DAILY Cyanocobalamin (Vitamin B-12) [Vitamin B-12] 1,000 mcg PO DAILY Vitamin E 400 unit PO DAILY Brimonidine Tartrate [Alphagan P 0.2% Ophth Soln] 1 drop RIGHT EYE BID Pantoprazole Sodium [Protonix] 40 mg PO DAILY HYDROcodone/APAP 10-325MG [[place] 10-325] 1 tab PO QID PRN #12 tab PRN Reason: Pain Cholecalciferol [Vitamin D3 (25 Mcg = 1000 Iu)] 75 mcg PO DAILY Promethazine [Phenergan] 25 mg PO TID PRN PRN Reason: Nausea Promethazine HCl [Phenergan Syrup] 6.25 mg PO Q6H PRN PRN Reason: Cough Dorzolamide 2% [Trusopt 2%] 1 drop RIGHT EYE BID Butalb/APAP/Caff 50-325-40Mg [Fioricet 50-325-40] 1 tab PO Q4H PRN PRN Reason: Migraine Headache buPROPion HCL [Wellbutrin SR] 200 mg PO DAILY Hydrocortisone [Cortef] 10 mg PO DAILY@1200 #0 Hydrocortisone [Cortef] 15 mg PO DAILY #0 Glucagon [Gvoke Pfs 1-Pack Syringe] 1 mg SQ ONCE PRN PRN Reason: severe hypoglycemia busPIRone HCl [Buspar] 5 mg PO BID Nystatin 1 applic TOPICAL BID PRN PRN Reason: Skin Irritation Insulin Aspart (For Pump) [NovoLOG (For Pump)] 0.01 unit SQ-PUMP CONTINUOUS lisinopriL 40 mg PO DAILY Ondansetron [Zofran] 4 mg PO Q6H PRN PRN Reason: Nausea Rosuvastatin Calcium [Crestor] 5 mg PO HS Cephalexin [Keflex] 250 mg PO HS #0 Metoprolol Succinate [Toprol XL] 100 mg PO HS Multivit-Min/Folic Acid/Cke014 [Alive Premium Adult Multivit] 1 tab PO DAILY Magnesium Oxide [Magnesium] 500 mg PO DAILY hydroCHLOROthiazide [Hydrodiuril] 25 mg PO DAILY Gabapentin 300 mg PO TID Cranberry Fruit Extract [Cranberry] 1,000 mg PO DAILY Hydrocortisone [Cortef] 5 mg PO HS #0 Discharge Medication List Meclizine [Antivert] 25 mg PO QID PRN 11/26/17 [History] Aspirin 81 mg PO DAILY #0 07/02/18 [Rx] Ferrous Sulfate [Iron (65 MG Elemental)] 325 mg PO DAILY 10/08/18 [History] Folic Acid 0.4 mg PO DAILY 10/08/18 [History] L.acidoph,Paracasei, B.lactis [Probiotic] 2 cap PO BID 10/08/18 [History] Melatonin 5 mg PO HS PRN 10/08/18 [History] Potassium 99 mg PO DAILY 10/08/18 [History] Thiamine [Vitamin B-1] 100 mg PO DAILY 10/08/18 [History] Vitamin B-Complex Drops 1 drop PO BID 10/08/18 [History] Gabapentin [Neurontin] 100 mg PO TID #9 cap 03/24/20 [Rx] C,E,Zinc,Copper 11/Unbxw7z/Lut [Ocuvite Adult 50 Plus Softgel] 1 cap PO DAILY 06/25/20 [History] Cyanocobalamin (Vitamin B-12) [Vitamin B-12] 1,000 mcg PO DAILY 06/25/20 [History] Spironolactone 50 mg PO DAILY 06/25/20 [History] Vitamin E 400 unit PO DAILY 06/25/20 [History] Brimonidine Tartrate [Alphagan P 0.2% Ophth Soln] 1 drop RIGHT EYE BID 11/26/20 [History] Glucagon [Gvoke Pfs 1-Pack Syringe] 1 mg SQ ONCE PRN 11/26/20 [History] Pantoprazole Sodium [Protonix] 40 mg PO DAILY 11/26/20 [History] busPIRone HCl [Buspar] 5 mg PO BID 02/04/21 [History] Nystatin 1 applic TOPICAL BID PRN 02/17/21 [History] Insulin Aspart (For Pump) [NovoLOG (For Pump)] 0.01 unit SQ-PUMP CONTINUOUS 03/03/21 [History] Ondansetron [Zofran] 4 mg PO Q6H PRN 08/15/21 [History] Rosuvastatin Calcium [Crestor] 5 mg PO HS 08/15/21 [History] lisinopriL 40 mg PO DAILY 08/15/21 [History] Cephalexin [Keflex] 250 mg PO HS #0 08/20/21 [Rx] HYDROcodone/APAP 10-325MG [[place] 10-325] 1 tab PO QID PRN #12 tab 08/20/21 [Rx] Metoprolol Succinate [Toprol XL] 100 mg PO HS 09/06/21 [History] Cholecalciferol [Vitamin D3 (25 Mcg = 1000 Iu)] 75 mcg PO DAILY 09/21/21 [History] Promethazine [Phenergan] 25 mg PO TID PRN 09/21/21 [History] Butalb/APAP/Caff 50-325-40Mg [Fioricet 50-325-40] 1 tab PO Q4H PRN 05/25/22 [History] Cranberry Fruit Extract [Cranberry] 1,000 mg PO DAILY 05/25/22 [History] Dorzolamide 2% [Trusopt 2%] 1 drop RIGHT EYE BID 05/25/22 [History] Gabapentin 300 mg PO TID 05/25/22 [History] Magnesium Oxide [Magnesium] 500 mg PO DAILY 05/25/22 [History] Multivit-Min/Folic Acid/[id number] [Alive Premium Adult Multivit] 1 tab PO DAILY 05/25/22 [History] Promethazine HCl [Phenergan Syrup] 6.25 mg PO Q6H PRN 05/25/22 [History] buPROPion HCL [Wellbutrin SR] 200 mg PO DAILY 05/25/22 [History] hydroCHLOROthiazide [Hydrodiuril] 25 mg PO DAILY 05/25/22 [History] Hydrocortisone [Cortef] 5 mg PO HS #0 05/30/22 [Rx] Hydrocortisone [Cortef] 10 mg PO DAILY@1200 #0 05/30/22 [Rx] Hydrocortisone [Cortef] 15 mg PO DAILY #0 05/30/22 [Rx] predniSONE 10 mg PO DIRECTED #18 tab 05/30/22 [Rx] Follow up Appointment(s)/Referral(s): Andrew Gonsales MD [Primary Care Provider] - 1 Week (PLEASE CALL AND SCHEDULE APPOINTMENT.) [facility], [NON-STAFF] - 1 Week (AGENCY WILL CONTACT YOU.) Patient Instructions/Handouts: Prednisone (By mouth), Chronic Neck Pain (DC) Discharge Disposition: HOME WITH HOME HEALTH SERVICES
== END 2022-05-30 14:40 | disposition home health service (06) ==
LOC: EC 03:40 → 6NMEDSUR 05:24
PROVIDERS: ADMIT Family Medicine; ATTEND Family Medicine
DX: M54.12 Radiculopathy, cervical region (principal); I95.9 Hypotension, unspecified; E86.0 Dehydration; M54.81 Occipital neuralgia; N28.9 Disorder of kidney and ureter, unspecified; R11.2 Nausea with vomiting, unspecified; G43.909 Migraine, unspecified, not intractable, without status migrainosus; E11.42 Type 2 diabetes mellitus with diabetic polyneuropathy; E11.65 Type 2 diabetes mellitus with hyperglycemia; Z72.820 Sleep deprivation; I10 Essential (primary) hypertension; E78.5 Hyperlipidemia, unspecified; G47.33 Obstructive sleep apnea (adult) (pediatric); G89.29 Other chronic pain; M15.9 Polyosteoarthritis, unspecified; M79.7 Fibromyalgia; E27.40 Unspecified adrenocortical insufficiency; F32.A Depression, unspecified; Z79.4 Long term (current) use of insulin; Z79.82 Long term (current) use of aspirin; Z79.52 Long term (current) use of systemic steroids; Z79.899 Other long term (current) drug therapy; Z88.0 Allergy status to penicillin; Z88.1 Allergy status to other antibiotic agents; Z88.5 Allergy status to narcotic agent; Z88.8 Allergy status to other drugs, medicaments and biological substances; Z88.2 Allergy status to sulfonamides; Z96.41 Presence of insulin pump (external) (internal); Z86.718 Personal history of other venous thrombosis and embolism; Z87.442 Personal history of urinary calculi; Z86.14 Personal history of Methicillin resistant Staphylococcus aureus infection; Z16.21 Resistance to vancomycin; Z16.12 Extended spectrum beta lactamase (ESBL) resistance; Z89.421 Acquired absence of other right toe(s); Z87.01 Personal history of pneumonia (recurrent); Z87.440 Personal history of urinary (tract) infections; Z90.49 Acquired absence of other specified parts of digestive tract; Z90.710 Acquired absence of both cervix and uterus; Z98.1 Arthrodesis status; Z98.42 Cataract extraction status, left eye; Z98.41 Cataract extraction status, right eye; Z98.890 Other specified postprocedural states; Z86.19 Personal history of other infectious and parasitic diseases; Z83.3 Family history of diabetes mellitus; Z82.49 Family history of ischemic heart disease and other diseases of the circulatory system; Z82.3 Family history of stroke; Z80.49 Family history of malignant neoplasm of other genital organs; Z82.5 Family history of asthma and other chronic lower respiratory diseases; Z83.1 Family history of other infectious and parasitic diseases
CPT/HCPCS: 96376 ×7; 96361 ×2; 96372 ×5; 96375 ×2; 96374; 99285; 94760 ×3; 93005; 97162; 97166; 80053; 80048 ×2; 83605; 83735 ×2; 84100; 84484; 85025 ×3; 81001; 83036; G0378 ×6; J1720; J2920 ×4; S0106; J2405 ×5; J1170 ×6; J7512; J1644 ×5

== ENCOUNTER 2022-07-04 11:28 | Emergency (ER) | payer MEDICARE, BC ==
--- NOTE | 2022-07-04 11:56 | ED ---
Upper Extremity HPI - General Source: patient Mode of arrival: EMS Limitations: no limitations - History of Present Illness MD Complaint: Injury to:: left, shoulder <Anika Leavitt - Last Filed: 07/04/22 11:33> <Familia Figueroa - Last Filed: 07/04/22 23:04> - General Chief Complaint: Extremity Problem,Nontraumatic Stated Complaint: lt shoulder pain Time Seen by Provider: 07/04/22 11:50 - History of Present Illness Initial Comments: This is a 71 year old female who presents to the emergency department for left shoulder pain. She had a bone spur removed from her neck at [facility] on 06/22/22. She is taking 2 [place] daily, which she states is not effective. She is hoping for help with pain management today. While the surgery was on the neck, the pain is in the shoulder. Believes that this is due to her arm being confined during surgery. She has associated nausea as well. She took phenergan at home which was only mildly effective. (Anika Leavitt) The patient does relate that she had the spur removed from her neck at [facility] on 06/22/2022. She states that she also had a cervical fusion at that time. She had pain radiating down her right arm which resolved after the surgery. She is now having pain going down her left arm. This started directly after the surgery and has been persistent for the last 12 days. She states that the G[place]den 10/325 has not been alleviating all of her pain. She also states that she's been taking Phenergan as well as Zofran 4 mg for the nausea without relief. She has not followed up with her spinal surgeon as of yet but has an appointment in 4 days. She denies any trauma. She denies any other complaints or modifying factors. There is no numbness or weakness to extremities. No fevers or chills. No chest pain or shortness of breath. No other complaints or modifying factors. (Familia Figueroa) - Related Data Home Medications Medication Instructions Recorded Confirmed Meclizine [Antivert] 25 mg PO QID PRN 11/26/17 05/25/22 Ferrous Sulfate [Iron (65 MG 325 mg PO DAILY 10/08/18 05/25/22 Elemental)] Folic Acid 0.4 mg PO DAILY 10/08/18 05/25/22 L.acidoph,Paracasei, B.lactis 2 cap PO BID 10/08/18 05/25/22 [Probiotic] Melatonin 5 mg PO HS PRN 10/08/18 05/25/22 Potassium 99 mg PO DAILY 10/08/18 05/25/22 Thiamine [Vitamin B-1] 100 mg PO DAILY 10/08/18 05/25/22 Vitamin B-Complex Drops 1 drop PO BID 10/08/18 05/25/22 C,E,Zinc,Copper 11/Brdhq1q/Lut 1 cap PO DAILY 06/25/20 05/25/22 [Ocuvite Adult 50 Plus Softgel] Cyanocobalamin (Vitamin B-12) 1,000 mcg PO DAILY 06/25/20 05/25/22 [Vitamin B-12] Spironolactone 50 mg PO DAILY 06/25/20 05/25/22 Vitamin E 400 unit PO DAILY 06/25/20 05/25/22 Brimonidine Tartrate [Alphagan P 1 drop RIGHT EYE BID 11/26/20 05/25/22 0.2% Ophth Soln] Glucagon [Gvoke Pfs 1-Pack Syringe] 1 mg SQ ONCE PRN 11/26/20 05/25/22 Pantoprazole Sodium [Protonix] 40 mg PO DAILY 11/26/20 05/25/22 busPIRone HCl [Buspar] 5 mg PO BID 02/04/21 05/25/22 Nystatin 1 applic TOPICAL BID PRN 02/17/21 05/25/22 Insulin Aspart (For Pump) [NovoLOG 0.01 unit SQ-PUMP CONTINUOUS 03/03/21 05/25/22 (For Pump)] Ondansetron [Zofran] 4 mg PO Q6H PRN 08/15/21 05/25/22 Rosuvastatin Calcium [Crestor] 5 mg PO HS 08/15/21 05/25/22 lisinopriL 40 mg PO DAILY 08/15/21 05/25/22 Metoprolol Succinate [Toprol XL] 100 mg PO HS 09/06/21 05/25/22 Cholecalciferol [Vitamin D3 (25 75 mcg PO DAILY 09/21/21 05/25/22 Mcg = 1000 Iu)] Promethazine [Phenergan] 25 mg PO TID PRN 09/21/21 05/25/22 Butalb/APAP/Caff 50-325-40Mg 1 tab PO Q4H PRN 05/25/22 05/25/22 [Fioricet 50-325-40] Cranberry Fruit Extract [Cranberry] 1,000 mg PO DAILY 05/25/22 05/25/22 Dorzolamide 2% [Trusopt 2%] 1 drop RIGHT EYE BID 05/25/22 05/25/22 Gabapentin 300 mg PO TID 05/25/22 05/25/22 Magnesium Oxide [Magnesium] 500 mg PO DAILY 05/25/22 05/25/22 Multivit-Min/Folic Acid/Rtu552 1 tab PO DAILY 05/25/22 05/25/22 [Alive Premium Adult Multivit] Promethazine HCl [Phenergan Syrup] 6.25 mg PO Q6H PRN 05/25/22 05/25/22 buPROPion HCL [Wellbutrin SR] 200 mg PO DAILY 05/25/22 05/25/22 hydroCHLOROthiazide [Hydrodiuril] 25 mg PO DAILY 05/25/22 05/25/22 Previous Rx's Medication Instructions Recorded Aspirin 81 mg PO DAILY #0 07/02/18 Gabapentin [Neurontin] 100 mg PO TID #9 cap 03/24/20 Cephalexin [Keflex] 250 mg PO HS #0 08/20/21 HYDROcodone/APAP 10-325MG [G[place]den 1 tab PO QID PRN #12 tab 08/20/21 10-325] Hydrocortisone [Cortef] 5 mg PO HS #0 05/30/22 Hydrocortisone [Cortef] 10 mg PO DAILY@1200 #0 05/30/22 Hydrocortisone [Cortef] 15 mg PO DAILY #0 05/30/22 predniSONE 10 mg PO DIRECTED #18 tab 05/30/22 Ondansetron Odt [Zofran Odt] 8 mg PO Q8HR PRN #15 tab 07/04/22 predniSONE [Deltasone] 20 mg PO BID #10 tab 07/04/22 Allergies Allergy/AdvReac Type Severity Reaction Status Date / Time butorphanol tartrate Allergy BLISTERS Verified 07/04/22 11:58 [From Stadol] IN MOUTH ceftriaxone [From Rocephin] Allergy Unknown Verified 07/04/22 11:58 clarithromycin [From Biaxin] Allergy Rash/Hives Verified 07/04/22 11:58 clindamycin Allergy Unknown Verified 07/04/22 11:58 codeine Allergy Rash/Hives Verified 07/04/22 11:58 ergotamine tartrate Allergy Unknown Verified 07/04/22 11:58 [From Cafergot] erythromycin base Allergy RASH, GI Verified 07/04/22 11:58 [From E-Mycin] SYMPTOMS ketorolac tromethamine Allergy Rash/Hives Verified 07/04/22 11:58 [From Toradol] liraglutide [From Victoza] Allergy Rash/Hives Verified 07/04/22 11:58 morphine Allergy Rash/Hives Verified 07/04/22 11:58 Penicillins Allergy Rash/Hives Verified 05/25/22 08:52 on upper body pentazocine lactate Allergy SEVERE Verified 05/25/22 08:52 [From Talwin] BLISTERS IN MOUTH pregabalin [From Lyrica] Allergy Rash/Hives Verified 05/25/22 08:52 propoxyphene HCl Allergy Rash/Hives Verified 05/25/22 08:52 [From Darvon] Sulfa (Sulfonamide Allergy Rash/Hives Verified 05/25/22 08:52 Antibiotics) tramadol Allergy Unknown Verified 05/25/22 08:52 monosodium glutamate [MSG] AdvReac Nausea & Verified 05/25/22 08:52 Vomiting nalbuphine HCl [From Nubain] AdvReac Nausea & Verified 05/25/22 08:52 Vomiting Review of Systems ROS Other: All systems not noted in ROS Statement are negative. <Anika Leavitt - Last Filed: 07/04/22 11:33> ROS Other: All systems not noted in ROS Statement are negative. <Familia Figueroa - Last Filed: 07/04/22 23:04> ROS Statement: Those systems with pertinent positive or pertinent negative responses have been documented in the HPI. Past Medical History Past Medical History: Diabetes Mellitus, Deep Vein Thrombosis (DVT), Fibromyalgia, Hyperlipidemia, Hypertension, Osteoarthritis (OA), Pneumonia, Renal Disease, Sleep Apnea/CPAP/BIPAP, Vascular Disorder Additional Past Medical History / Comment(s): Pt recently admitted to [facility] with R flank pain. 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, DVT R calf in 1976, cardiac murmur, occipital neuraligia, balance issues-has narrowing of vessels "in the back of my head", vertigo, varicosities, states rt shoulder torn rotator cuff History of Any Multi-Drug Resistant Organisms: ESBL, MRSA, VRE Date of last positivie culture/infection: 11/25/20 ESBL;12/06/19 VRE; 03/10/11 MRSA MDRO Source:: Urine ESBL; Urine-VRE: MRSA 4th Right TOE Past Surgical History: Appendectomy, Back Surgery, Bladder Surgery, Breast Surgery, Cholecystectomy, Heart Catheterization, Hysterectomy, Orthopedic Surgery, Tonsillectomy Additional Past Surgical History / Comment(s): Lumbar fusions, bladder suspension, occipital nerve blocks, 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, R wrist/elbow nerve repair, bone removed R shoulder, 4th toe R foot partial amputation, bilateral feet/bunionectomies, R knee arthroscopies, R orbit decompression with ethmoidectomy and eyelid lift, EGD, colonoscopies, cystocopies, lithotripsy/stents, bilateral breast reduction, bilateral cataract removals, parathyroid surgery - April 2019, pain clinic procedures Past Anesthesia/Blood Transfusion Reactions: No Reported Reaction Additional Past Anesthesia/Blood Transfusion Reaction / Comment(s): never recieved blood Smoking Status: Never smoker - Past Family History Father Family Medical History: Coronary Artery Disease (CAD), CVA/TIA, Diabetes Mellitus, Myocardial Infarction ([place]), Pneumonia Additional Family Medical History / Comment(s): Father at the age of 78yrs from [place] and pneumonia. Mother Family Medical History: Cancer, Congestive Heart Failure (CHF) Additional Family Medical History / Comment(s): Mother had uterine cancer. She recently at the age of 96yrs old from shingles. <Anika Leavitt - Last Filed: 07/04/22 11:33> General Exam <Familia Figueroa - Last Filed: 07/04/22 23:04> - General Exam Comments Initial Comments: GENERAL: The patient is well nourished and well hydrated. VITAL SIGNS: Heart rate, blood pressure, respiratory rate reviewed as recorded in nurse's notes. EYES: Pupils are round and reactive. Extraocular movements are intact. No conjunctival / lid redness or swelling. ENT: No external evidence of injury, swelling, or ecchymosis. Airway is patent. Throat is clear. NECK: Patient is currently in a [place] collar. Only minimal tenderness noted to the neck. There is an anterior well-healing scar noted. No swelling or evidence of injury. No subcutaneous emphysema. Trachea is midline. No thyroid mass. HEART: Regular rate and rhythm. Good peripheral pulses. LUNGS/CHEST: Breath sounds clear and equal bilaterally. No rales, rhonchi, or wheezes. No ecchymosis, subcutaneous emphysema, or tenderness. ABDOMEN: Abdomen soft without tenderness. No palpable masses or organomegaly. No peritoneal signs. No abdominal wall swelling or ecchymosis. EXTREMITIES: Tenderness noted to the left shoulder superior and lateral aspect. No swelling identified. Good range of motion. Normal muscle tone and function. No thoracolumbar tenderness. NEUROLOGIC: Sensation is grossly intact. Cranial nerve exam reveals face is symmetrical, tongue is midline, speech is clear. SKIN: No abrasions or ecchymosis is noted. No induration or masses noted. PSYCHIATRIC: Alert and oriented. Appropriate behavior and judgment. (Familia Figueroa) Course Vital Signs 07/04/22 07/04/22 07/04/22 11:53 14:14 14:48 Temperature 99.8 F H Pulse Rate 122 H 115 H 108 H Respiratory 18 18 Rate Blood Pressure 110/72 114/75 O2 Sat by Pulse 97 95 95 Oximetry Medical Decision Making <Familia Figueroa - Last Filed: 07/04/22 23:04> - Medical Decision Making Was pt. sent in by a medical professional or institution (, PA, FUNCTIONAL MENTAL DISABILITY TEACHER, urgent care, hospital, or residential...) When possible be specific @ -[No] Did you speak to anyone other than the patient for history (EMS, parent, family, police, friend...)? What history was obtained from this source @ -I was able to speak with the who gives additional history. Did you review nursing and triage notes (agree or disagree)? Why? @ -[I reviewed and agree with nursing and triage notes] Were old charts reviewed (outside hosp., previous admission, EMS record, old EKG, old radiological studies, urgent care reports/EKG's, residential records)? Report findings @ -Old records were reviewed and does show patient was admitted approximately one month ago and received Dilaudid every 3 hours. Differential Diagnosis (chest pain, altered mental status, abdominal pain women, abdominal pain men, vaginal bleeding, weakness, fever, dyspnea, syncope, headache, dizziness, GI bleed, back pain, seizure, CVA, palpatations, mental health)? @ -Chronic pain, left shoulder strain, left cervical radiculopathy, recent cervical fusion EKG interpreted by me (3pts min.). @ -EKGs shows a sinus tachycardia at a rate of 118. There is some nonspecific ST-T wave changes but no ST elevation. The NV intervals 150, QS duration is 84, and the QTC intervals 410. X-rays interpreted by me (1pt min.). @ -X-rays of the left shoulder were reviewed by myself and does not show any acute processes. This is consistent with radiology diagnosis. CT interpreted by me (1pt min.). @ -[None done] U/S interpreted by me (1pt. min.). @ -[None done] What testing was considered but not performed or refused? (CT, X-rays, U/S, lab s)? Why? @ -[None] What meds were considered but not given or refused? Why? @ -[None] Did you discuss the management of the patient with other professionals (professionals i.e. , PA, FUNCTIONAL MENTAL DISABILITY TEACHER, lab, RT, psych nurse, social work lecturer, vp marketing services and skin, teacher, protocol officer, case resolution specialist)? Give summary @ -[No] Was smoking cessation discussed for >3mins.? @ -[No] Was critical care preformed (if so, how long)? @ -[No] Were there social determinants of health that impacted care today? How? (Homelessness, low income, unemployed, alcoholism, drug addiction, transportation, low edu. Level, literacy, decrease access to med. care, snf, rehab)? @ -[No] Was there de-escalation of care discussed even if they declined (Discuss DNR or withdrawal of care, Hospice)? DNR status @ -[No] What co-morbidities impacted this encounter? (DM, HTN, Smoking, COPD, CAD, Cancer, CVA, ARF, Chemo, Hep., AIDS, mental health diagnosis, sleep apnea, morbid obesity)? @ -Chronic pain issues as Was patient admitted / discharged? Hospital course, mention meds given and route, prescriptions, significant lab abnormalities, going to OR and other pertinent info. @ -The patient was seen and examined. She is fairly insistent on receiving narcotic pain medications. She is ALLERGIC to morphine and therefore is given Dilaudid. She is insistent again later on and ER course received additional pain medications and is given another dose of Dilaudid. She also receives Solu- Medrol as the possibility of joint inflammation certainly is plausible. It is felt as though she does have pain directly over the left shoulder and it is felt less likely that this is a cervical radiculopathy related to the surgery. [facility] and will be referred to them. She may need MRI scan in the future. She appears to have a significant history of pain medication use. She is instructed that all of her pain will not be resolved as she just had surgery and she will have to deal with a certain degree of pain. It is highly recommended that she follow up with her spinal surgeon through the [facility] especially for consideration of additional home pain medications. She is prescribed steroids for home as well as Zofran 8 mg instead of 4 mg for her nausea. Undiagnosed new problem with uncertain prognosis? @ -The shoulder pain appears to be new in nature since the surgery. The neck pain issues are chronic. Chronic pain is chronic. Drug Therapy requiring intensive monitoring for toxicity (Heparin, Nitro, Insulin, Cardizem)? @ -[No] Were any procedures done? @ -[No] Diagnosis/symptom? @ -Left shoulder pain, chronic pain, history of recent cervical fusion Acute, or Chronic, or Acute on Chronic? @ -Acute and chronic Uncomplicated (without systemic symptoms) or Complicated (systemic symptoms)? @ -Complicated Side effects of treatment? @ -[No] Exacerbation, Progression, or Severe Exacerbation? @ -Acute exacerbation Poses a threat to life or bodily function? How? (Chest pain, [place], [place], pneumonia, PE, COPD, DKA, ARF, appy, cholecystitis, CVA, Diverticulitis, Homicidal, Suicidal, threat to staff... and all critical care pts) @ -[No] (Familia Figueroa) Disposition <Anika Leavtit - Last Filed: 07/04/22 11:33> Is patient prescribed a controlled substance at d/c from ED?: No Time of Disposition: 14:37 <Famiila Figueroa - Last Filed: 07/04/22 23:04> Clinical Impression: History of neck surgery, Left shoulder pain, Nausea, Chronic pain Disposition: HOME SELF-CARE Condition: Good Prescriptions: predniSONE [Deltasone] 20 mg PO BID #10 tab Ondansetron Odt [Zofran Odt] 8 mg PO Q8HR PRN #15 tab PRN Reason: Nausea Referrals: Andrew Gonsales MD [Primary Care Provider] - 1-2 days Virgilio Tanner MD [STAFF PHYSICIAN] - As Soon As Possible
[2022-07-04 11:58] VITALS: RESP 18; TEMP 99.8
[2022-07-04] MEDS ORDERED: SODIUM CHLORIDE 0.9% 1,000 ML IV STA (12:32)
[2022-07-04] MEDS ORDERED: SODIUM CHLORIDE 0.9% 500 ML 500 ML IV STA (12:32)
[2022-07-04] MEDS ORDERED: methylPREDNISolone SOD SUCCI 125 MG/2 ML VIAL IV STA (12:34)
[2022-07-04] MEDS ORDERED: HYDROmorphone 1 MG/ML 1 ML SYRINGE IVP STA ×2 (12:34→14:38)
[2022-07-04] MEDS ORDERED: ONDANSETRON 4 MG/2 ML VIAL IVP STA (12:35)
--- NOTE | 2022-07-04 13:50 | XR ---
EXAMINATION TYPE: XR shoulder complete LT DATE OF EXAM: 07/04/2022 COMPARISON: NONE HISTORY: Pain TECHNIQUE: Shoulder examined in 3 injections FINDINGS: The humeral head articulates with the glenoid. Inferior glenoid has some hypertrophy compatible with degenerative change The acromio-clavicular junction is normal. No acute fractures or dislocations are evident. A follow up study can be performed 7-10 days from acute trauma for continued pain. IMPRESSION: 1. No acute osseous abnormality.
[2022-07-04 14:49] VITALS: BP 114/75; PULSE 108
== END 2022-07-04 15:09 | disposition home or self-care (01) ==
LOC: EC 11:28
DX: G89.29 Other chronic pain (principal); M25.512 Pain in left shoulder; R11.0 Nausea; I10 Essential (primary) hypertension; E11.9 Type 2 diabetes mellitus without complications; E78.5 Hyperlipidemia, unspecified; G47.33 Obstructive sleep apnea (adult) (pediatric); Z79.52 Long term (current) use of systemic steroids; Z79.82 Long term (current) use of aspirin; Z86.718 Personal history of other venous thrombosis and embolism; Z79.4 Long term (current) use of insulin; Z79.899 Other long term (current) drug therapy; Z88.0 Allergy status to penicillin; Z88.1 Allergy status to other antibiotic agents; Z88.2 Allergy status to sulfonamides; Z88.5 Allergy status to narcotic agent; Z88.8 Allergy status to other drugs, medicaments and biological substances
CPT/HCPCS: 73030; 99284; 96374; 96376; 96375 ×2; 96361; J2930; J2405; J1170

== ENCOUNTER 2022-07-09 12:56 | Emergency (ER) | payer MEDICARE, BC ==
[2022-07-09 13:15] VITALS: BP 159/82; PULSE 69; TEMP 98.2
[2022-07-09] MEDS ORDERED: HYDROmorphone 1 MG/ML 1 ML SYRINGE IVP STA (13:26)
[2022-07-09] MEDS ORDERED: methylPREDNISolone SOD SUCCI 125 MG/2 ML VIAL IV STA (13:26)
[2022-07-09] MEDS ORDERED: ONDANSETRON 4 MG/2 ML VIAL IVP STA (13:26)
[2022-07-09] MEDS ORDERED: HYDROmorphone 0.5 MG/0.5 ML SYRINGE IVP STA (13:26)
--- NOTE | 2022-07-09 13:46 | ED ---
General Adult HPI - General Chief complaint: Neck Pain/Injury Stated complaint: Neck & Shoulder Pain Time Seen by Provider: 07/09/22 13:06 Source: patient, EMS, RN notes reviewed Mode of arrival: EMS Limitations: no limitations - History of Present Illness Initial comments: 71-year-old female presents emergency from via EMS with chief complaint of chronic back pain. Patient had surgery on her neck she did see her surgeon yesterday in which they upped her Dallas every 4 hours. Patient states that she is on [place] 10. Patient states that she cannot give the pain control. Patient states this is not new this been thoroughly evaluated. Patient states pains left side of her shoulder after surgery in which a pin her arm down. - Related Data Home Medications Medication Instructions Recorded Confirmed Meclizine [Antivert] 25 mg PO QID PRN 11/26/17 05/25/22 Ferrous Sulfate [Iron (65 MG 325 mg PO DAILY 10/08/18 05/25/22 Elemental)] Folic Acid 0.4 mg PO DAILY 10/08/18 05/25/22 L.acidoph,ParacZoie angel.lactis 2 cap PO BID 10/08/18 05/25/22 [Probiotic] Melatonin 5 mg PO HS PRN 10/08/18 05/25/22 Potassium 99 mg PO DAILY 10/08/18 05/25/22 Thiamine [Vitamin B-1] 100 mg PO DAILY 10/08/18 05/25/22 Vitamin B-Complex Drops 1 drop PO BID 10/08/18 05/25/22 C,E,Zinc,Copper 11/Fldvd2u/Lut 1 cap PO DAILY 06/25/20 05/25/22 [Ocuvite Adult 50 Plus Softgel] Cyanocobalamin (Vitamin B-12) 1,000 mcg PO DAILY 06/25/20 05/25/22 [Vitamin B-12] Spironolactone 50 mg PO DAILY 06/25/20 05/25/22 Vitamin E 400 unit PO DAILY 06/25/20 05/25/22 Brimonidine Tartrate [Alphagan P 1 drop RIGHT EYE BID 11/26/20 05/25/22 0.2% Ophth Soln] Glucagon [Gvoke Pfs 1-Pack Syringe] 1 mg SQ ONCE PRN 11/26/20 05/25/22 Pantoprazole Sodium [Protonix] 40 mg PO DAILY 11/26/20 05/25/22 busPIRone HCl [Buspar] 5 mg PO BID 02/04/21 05/25/22 Nystatin 1 applic TOPICAL BID PRN 02/17/21 05/25/22 Insulin Aspart (For Pump) [NovoLOG 0.01 unit SQ-PUMP CONTINUOUS 03/03/21 05/25/22 (For Pump)] Ondansetron [Zofran] 4 mg PO Q6H PRN 08/15/21 05/25/22 Rosuvastatin Calcium [Crestor] 5 mg PO HS 08/15/21 05/25/22 lisinopriL 40 mg PO DAILY 08/15/21 05/25/22 Metoprolol Succinate [Toprol XL] 100 mg PO HS 09/06/21 05/25/22 Cholecalciferol [Vitamin D3 (25 75 mcg PO DAILY 09/21/21 05/25/22 Mcg = 1000 Iu)] Promethazine [Phenergan] 25 mg PO TID PRN 09/21/21 05/25/22 Butalb/APAP/Caff 50-325-40Mg 1 tab PO Q4H PRN 05/25/22 05/25/22 [Fioricet 50-325-40] Cranberry Fruit Extract [Cranberry] 1,000 mg PO DAILY 05/25/22 05/25/22 Dorzolamide 2% [Trusopt 2%] 1 drop RIGHT EYE BID 05/25/22 05/25/22 Gabapentin 300 mg PO TID 05/25/22 05/25/22 Magnesium Oxide [Magnesium] 500 mg PO DAILY 05/25/22 05/25/22 Multivit-Min/Folic Acid/[id number] 1 tab PO DAILY 05/25/22 05/25/22 [Alive Premium Adult Multivit] Promethazine HCl [Phenergan Syrup] 6.25 mg PO Q6H PRN 05/25/22 05/25/22 buPROPion HCL [Wellbutrin SR] 200 mg PO DAILY 05/25/22 05/25/22 hydroCHLOROthiazide [Hydrodiuril] 25 mg PO DAILY 05/25/22 05/25/22 Previous Rx's Medication Instructions Recorded Aspirin 81 mg PO DAILY #0 07/02/18 Gabapentin [Neurontin] 100 mg PO TID #9 cap 03/24/20 Cephalexin [Keflex] 250 mg PO HS #0 08/20/21 HYDROcodone/APAP 10-325MG [[place] 1 tab PO QID PRN #12 tab 08/20/21 10-325] Hydrocortisone [Cortef] 5 mg PO HS #0 05/30/22 Hydrocortisone [Cortef] 10 mg PO DAILY@1200 #0 05/30/22 Hydrocortisone [Cortef] 15 mg PO DAILY #0 05/30/22 predniSONE 10 mg PO DIRECTED #18 tab 05/30/22 Ondansetron Odt [Zofran Odt] 8 mg PO Q8HR PRN #15 tab 07/04/22 predniSONE [Deltasone] 20 mg PO BID #10 tab 07/04/22 Allergies Allergy/AdvReac Type Severity Reaction Status Date / Time butorphanol tartrate Allergy BLISTERS Verified 07/09/22 13:15 [From Stadol] IN MOUTH ceftriaxone [From Rocephin] Allergy Unknown Verified 07/09/22 13:15 clarithromycin [From Biaxin] Allergy Rash/Hives Verified 07/09/22 13:15 clindamycin Allergy Unknown Verified 07/09/22 13:15 codeine Allergy Rash/Hives Verified 07/09/22 13:15 ergotamine tartrate Allergy Unknown Verified 07/09/22 13:15 [From Cafergot] erythromycin base Allergy RASH, GI Verified 07/09/22 13:15 [From E-Mycin] SYMPTOMS ketorolac tromethamine Allergy Rash/Hives Verified 07/09/22 13:15 [From Toradol] liraglutide [From Victoza] Allergy Rash/Hives Verified 07/09/22 13:15 morphine Allergy Rash/Hives Verified 07/09/22 13:15 Penicillins Allergy Rash/Hives Verified 07/09/22 13:15 on upper body pentazocine lactate Allergy SEVERE Verified 07/09/22 13:15 [From Talwin] BLISTERS IN MOUTH pregabalin [From Lyrica] Allergy Rash/Hives Verified 07/09/22 13:15 propoxyphene HCl Allergy Rash/Hives Verified 07/09/22 13:15 [From Darvon] Sulfa (Sulfonamide Allergy Rash/Hives Verified 07/09/22 13:15 Antibiotics) tramadol Allergy Unknown Verified 07/09/22 13:15 monosodium glutamate [MSG] AdvReac Nausea & Verified 07/09/22 13:15 Vomiting nalbuphine HCl [From Nubain] AdvReac Nausea & Verified 07/09/22 13:15 Vomiting Review of Systems ROS Statement: Those systems with pertinent positive or pertinent negative responses have been documented in the HPI. ROS Other: All systems not noted in ROS Statement are negative. Past Medical History Past Medical History: Diabetes Mellitus, Deep Vein Thrombosis (DVT), Fibromyalgia, Hyperlipidemia, Hypertension, Osteoarthritis (OA), Pneumonia, Renal Disease, Sleep Apnea/CPAP/BIPAP, Vascular Disorder Additional Past Medical History / Comment(s): Pt recently admitted to [facility] with R flank pain. 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, DVT R calf in 1976, cardiac murmur, occipital neuraligia, balance issues-has narrowing of vessels "in the back of my head", vertigo, varicosities, states rt shoulder torn rotator cuff History of Any Multi-Drug Resistant Organisms: ESBL, MRSA, VRE Date of last positivie culture/infection: 11/25/20 ESBL;12/06/19 VRE; 03/10/11 MRSA MDRO Source:: Urine ESBL; Urine-VRE: MRSA 4th Right TOE Past Surgical History: Appendectomy, Back Surgery, Bladder Surgery, Breast Surgery, Cholecystectomy, Heart Catheterization, Hysterectomy, Orthopedic Surgery, Tonsillectomy Additional Past Surgical History / Comment(s): Lumbar fusions, bladder suspension, occipital nerve blocks, 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, R wrist/elbow nerve repair, bone removed R shoulder, 4th toe R foot partial amputation, bilateral feet/bunionectomies, R knee arthroscopies, R orbit decompression with ethmoidectomy and eyelid lift, EGD, colonoscopies, cystocopies, lithotripsy/stents, bilateral breast reduction, bilateral cataract removals, parathyroid surgery - April 2019, pain clinic procedures Past Anesthesia/Blood Transfusion Reactions: No Reported Reaction Additional Past Anesthesia/Blood Transfusion Reaction / Comment(s): never recieved blood Past Psychological History: Depression Smoking Status: Never smoker Past Alcohol Use History: None Reported Past Drug Use History: None Reported - Past Family History Father Family Medical History: Coronary Artery Disease (CAD), CVA/TIA, Diabetes Mellitus, Myocardial Infarction (AK), Pneumonia Additional Family Medical History / Comment(s): Father at the age of 78yrs from AK and pneumonia. Mother Family Medical History: Cancer, Congestive Heart Failure (CHF) Additional Family Medical History / Comment(s): Mother had uterine cancer. She recently at the age of 96yrs old from shingles. General Exam Limitations: no limitations General appearance: alert, in no apparent distress Head exam: Present: atraumatic, normocephalic, normal inspection Eye exam: Present: normal appearance, PERRL, EOMI. Absent: scleral icterus, conjunctival injection, periorbital swelling ENT exam: Present: normal exam, normal oropharynx, mucous membranes moist, other Neck exam: Present: normal inspection. Absent: tenderness, meningismus, full ROM (Patient in [place] J collar), lymphadenopathy Respiratory exam: Present: normal lung sounds bilaterally. Absent: respiratory distress, wheezes, rales, rhonchi, stridor Extremities exam: Present: other (Left trapezius left shoulder tenderness neurovascular intact) Course Vital Signs 07/09/22 13:09 Temperature 98.2 F Pulse Rate 69 Respiratory 18 Rate Blood Pressure 159/82 O2 Sat by Pulse 93 L Oximetry Medical Decision Making - Medical Decision Making Was pt. sent in by a medical professional or institution (, PA, MULTICULTURAL SERVICES LIBRARIAN, urgent care, hospital, or correction...) When possible be specific @ -No Did you speak to anyone other than the patient for history (EMS, parent, family, police, friend...)? What history was obtained from this source @ -EMS - prehospital care and treatment. Did you review nursing and triage notes (agree or disagree)? Why? @ -I reviewed and agree with nursing and triage notes Were old charts reviewed (outside hosp., previous admission, EMS record, old EKG, old radiological studies, urgent care reports/EKG's, correction records)? Report findings @ -Recent hospitalization and ER charts were reviewed Differential Diagnosis (chest pain, altered mental status, abdominal pain women, abdominal pain men, vaginal bleeding, weakness, fever, dyspnea, syncope, headache, dizziness, GI bleed, back pain, seizure, CVA, palpatations, mental health)? @ -not applicable EKG interpreted by me (3pts min.). @ -None X-rays interpreted by me (1pt min.). @ -None done CT interpreted by me (1pt min.). @ -None done U/S interpreted by me (1pt. min.). @ -None done What testing was considered but not performed or refused? (CT, X-rays, U/S, labs)? Why? @ -Patient's had recent imaging has considered MRI though distally based on outpatient surgery. What meds were considered but not given or refused? Why? @ -None Did you discuss the management of the patient with other professionals (professionals i.e. , PA, MULTICULTURAL SERVICES LIBRARIAN, lab, RT, psych nurse, professor of social work, roll reclaimer, teacher, biological technical officer, case management social worker)? Give summary @ -No Was smoking cessation discussed for >3mins.? @ -No Was critical care preformed (if so, how long)? @ -No Were there social determinants of health that impacted care today? How? (Homelessness, low income, unemployed, alcoholism, drug addiction, transportation, low edu. Level, literacy, decrease access to med. care, prison, rehab)? @ -No Was there de-escalation of care discussed even if they declined (Discuss DNR or withdrawal of care, Hospice)? DNR status @ -No What co-morbidities impacted this encounter? (DM, HTN, Smoking, COPD, CAD, Cancer, CVA, ARF, Chemo, Hep., AIDS, mental health diagnosis, sleep apnea, morbid obesity)? @ -None Was patient admitted / discharged? Hospital course, mention meds given and route, prescriptions, significant lab abnormalities, going to OR and other pertinent info. @ -Discharged - patient has chronic pain syndrome has been evaluated for the shoulder pain started after her neck surgery by her surgeon yesterday. She's had increase in pain medication. Patient provided relief here and will be discharged as there is no acute changes. She is recommended MRI if symptoms persist. Undiagnosed new problem with uncertain prognosis? @ -No Drug Therapy requiring intensive monitoring for toxicity (Heparin, Nitro, Insulin, Cardizem)? @ -No Were any procedures done? @ -No Diagnosis/symptom? @ -Shoulder pain Acute, or Chronic, or Acute on Chronic? @ -Acute on chronic Uncomplicated (without systemic symptoms) or Complicated (systemic symptoms)? @ -Uncomplicated Side effects of treatment? @ -No Exacerbation, Progression, or Severe Exacerbation? @ -[Acute exacerbation Poses a threat to life or bodily function? How? (Chest pain, [place], [place], pneumonia, PE, COPD, DKA, ARF, appy, cholecystitis, CVA, Diverticulitis, Homicidal, Suicidal, threat to staff... and all critical care pts) @ -No Disposition Clinical Impression: Chronic pain, Neck pain, Shoulder pain Disposition: HOME SELF-CARE Condition: Stable Instructions (If sedation given, give patient instructions): Shoulder Pain (ED) Additional Instructions: Please return to the Emergency Department if symptoms worsen or any other concerns. Is patient prescribed a controlled substance at d/c from ED?: No Referrals: Andrew Gonsales MD [Primary Care Provider] - 1-2 days Time of Disposition: 13:45
[2022-07-09 15:26] VITALS: RESP 15
== END 2022-07-09 15:28 | disposition home or self-care (01) ==
LOC: EC 12:56
DX: G89.29 Other chronic pain (principal); M54.2 Cervicalgia; M25.512 Pain in left shoulder; E11.9 Type 2 diabetes mellitus without complications; Z86.718 Personal history of other venous thrombosis and embolism; E78.5 Hyperlipidemia, unspecified; I10 Essential (primary) hypertension; M19.90 Unspecified osteoarthritis, unspecified site; F32.A Depression, unspecified; Z88.0 Allergy status to penicillin; Z88.2 Allergy status to sulfonamides; Z88.8 Allergy status to other drugs, medicaments and biological substances; Z88.1 Allergy status to other antibiotic agents; Z88.5 Allergy status to narcotic agent; Z88.6 Allergy status to analgesic agent; Z79.4 Long term (current) use of insulin; Z79.899 Other long term (current) drug therapy
CPT/HCPCS: 99284; 96374; 96375 ×2; J2930; J2405; J1170 ×2

== ENCOUNTER 2022-08-23 11:12 | Inpatient (IN) | payer MEDICARE, BC ==
[2022-08-23] MEDS ORDERED: METOCLOPRAMIDE 5 MG/ML 2 ML VIAL IVP STA (11:24)
[2022-08-23] MEDS ORDERED: SODIUM CHLORIDE 0.9% 1,000 ML IV STA (11:24)
[2022-08-23] MEDS ORDERED: HYDROmorphone 1 MG/ML 1 ML SYRINGE IVP STA (11:24)
[2022-08-23] MEDS ORDERED: HYDROCORTISONE SUCCINATE 100 MG/2 ML VIAL IV STA (11:24)
--- NOTE | 2022-08-23 11:31 | ED ---
Nausea/Vomiting/Diarrhea HPI - General Chief complaint: Nausea/Vomiting/Diarrhea Stated complaint: Neausea Time Seen by Provider: 08/23/22 11:18 Source: patient, EMS, RN notes reviewed Mode of arrival: EMS Limitations: no limitations - History of Present Illness Initial comments: This is a 71-year-old female who presents to the emergency department for n ausea, vomiting, and left shoulder pain. Patient has problems with chronic nausea and vomiting, and was evaluated here 2 days ago for the same problem. States that the Zofran she has at home is not controlling her symptoms. She was given Zofran by EMS on route with no relief in symptoms. She also has chronic left arm pain related to a prior neck surgery, where she states that her arm was held down in an uncomfortable position for a long period of time. States that she often requires Dilaudid in the emergency department for control of this. 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 Denies any fevers, chills, sore throat, cough, dyspnea, chest pain, palpitations, abdominal pain, diarrhea, back pain, or headaches. MD complaint: nausea, vomiting Associated Abdominal Pain: No - Related Data Home Medications Medication Instructions Recorded Confirmed Meclizine [Antivert] 25 mg PO QID PRN 11/26/17 08/23/22 Ferrous Sulfate [Iron (65 MG 325 mg PO DAILY 10/08/18 08/23/22 Elemental)] Folic Acid 0.4 mg PO DAILY 10/08/18 08/23/22 L.acidoph,Paracasei, B.lactis 2 cap PO BID 10/08/18 08/23/22 [Probiotic] Melatonin 5 mg PO HS PRN 10/08/18 08/23/22 Potassium 99 mg PO DAILY 10/08/18 08/23/22 Thiamine [Vitamin B-1] 100 mg PO DAILY 10/08/18 08/23/22 Vitamin B-Complex Drops 1 drop PO BID 10/08/18 08/23/22 C,E,Zinc,Copper 11/Ynbum0x/Lut 1 cap PO DAILY 06/25/20 08/23/22 [Ocuvite Adult 50 Plus Softgel] Cyanocobalamin (Vitamin B-12) 1,000 mcg PO DAILY 06/25/20 08/23/22 [Vitamin B-12] Spironolactone 50 mg PO DAILY 06/25/20 08/23/22 Vitamin E 400 unit PO DAILY 06/25/20 08/23/22 Brimonidine Tartrate [Alphagan P 1 drop RIGHT EYE BID 11/26/20 08/23/22 0.2% Ophth Soln] Glucagon [Gvoke Pfs 1-Pack Syringe] 1 mg SQ ONCE PRN 11/26/20 08/23/22 Pantoprazole Sodium [Protonix] 40 mg PO DAILY 11/26/20 08/23/22 busPIRone HCl [Buspar] 5 mg PO BID 02/04/21 08/23/22 Nystatin 1 applic TOPICAL BID PRN 02/17/21 08/23/22 Insulin Aspart (For Pump) [NovoLOG 0.01 unit SQ-PUMP CONTINUOUS 03/03/21 08/23/22 (For Pump)] Rosuvastatin Calcium [Crestor] 5 mg PO HS 08/15/21 08/23/22 Metoprolol Succinate [Toprol XL] 100 mg PO HS 09/06/21 08/23/22 Cholecalciferol [Vitamin D3 (25 75 mcg PO DAILY 09/21/21 08/23/22 Mcg = 1000 Iu)] Promethazine [Phenergan] 25 mg PO BID PRN 09/21/21 08/23/22 Butalb/APAP/Caff 50-325-40Mg 1 tab PO Q6H PRN 05/25/22 08/23/22 [Fioricet 50-325-40] Cranberry Fruit Extract [Cranberry] 1,000 mg PO DAILY 05/25/22 08/23/22 Dorzolamide 2% [Trusopt 2%] 1 drop RIGHT EYE BID 05/25/22 08/23/22 Magnesium Oxide [Magnesium] 500 mg PO DAILY 05/25/22 08/23/22 Multivit-Min/Folic Acid/Gfg285 1 tab PO DAILY 05/25/22 08/23/22 [Alive Premium Adult Multivit] Promethazine HCl [Phenergan Syrup] 6.25 mg PO Q6H PRN 05/25/22 08/23/22 buPROPion HCL [Wellbutrin SR] 200 mg PO DAILY 05/25/22 08/23/22 hydroCHLOROthiazide [Hydrodiuril] 25 mg PO DAILY 05/25/22 08/23/22 HYDROcodone/APAP 10-325MG [[place] 1 tab PO Q4H PRN 07/17/22 08/23/22 10-325] Metoclopramide [Reglan] 5 mg PO TID PRN 07/17/22 08/23/22 lisinopriL [Zestril] 30 mg PO DAILY 07/17/22 08/23/22 methocarbamoL [Methocarbamol] 1,000 mg PO Q6H PRN 07/17/22 08/23/22 Diclofenac Sodium Gel [Voltaren 2 gm TOPICAL QID PRN 08/03/22 08/23/22 Gel] Previous Rx's Medication Instructions Recorded Aspirin 81 mg PO DAILY #0 07/02/18 Gabapentin [Neurontin] 100 mg PO TID #9 cap 03/24/20 Hydrocortisone [Cortef] 5 mg PO HS #0 05/30/22 Hydrocortisone [Cortef] 10 mg PO DAILY@1200 #0 05/30/22 Hydrocortisone [Cortef] 15 mg PO DAILY #0 05/30/22 Ondansetron Odt [Zofran ODT] 8 mg PO Q8HR PRN #15 tab 07/04/22 Cephalexin [Keflex] 250 mg PO HS #0 07/19/22 Allergies Allergy/AdvReac Type Severity Reaction Status Date / Time butorphanol tartrate Allergy BLISTERS Verified 08/23/22 13:39 [From Stadol] IN MOUTH ceftriaxone [From Rocephin] Allergy Unknown Verified 08/23/22 13:39 clarithromycin [From Biaxin] Allergy Rash/Hives Verified 08/23/22 13:39 clindamycin Allergy Unknown Verified 08/23/22 13:39 codeine Allergy Rash/Hives Verified 08/23/22 13:39 ergotamine tartrate Allergy Unknown Verified 08/23/22 13:39 [From Cafergot] erythromycin base Allergy RASH, GI Verified 08/23/22 13:39 [From E-Mycin] SYMPTOMS ketorolac tromethamine Allergy Rash/Hives Verified 08/23/22 13:39 [From Toradol] liraglutide [From Victoza] Allergy Rash/Hives Verified 08/23/22 13:39 morphine Allergy Rash/Hives Verified 08/23/22 13:39 Penicillins Allergy Rash/Hives Verified 08/23/22 13:39 on upper body pentazocine lactate Allergy SEVERE Verified 08/23/22 13:39 [From Talwin] BLISTERS IN MOUTH pregabalin [From Lyrica] Allergy Rash/Hives Verified 08/23/22 13:39 propoxyphene HCl Allergy Rash/Hives Verified 08/23/22 13:39 [From Darvon] Sulfa (Sulfonamide Allergy Rash/Hives Verified 08/23/22 13:39 Antibiotics) tramadol Allergy Unknown Verified 08/23/22 13:39 monosodium glutamate [MSG] AdvReac Nausea & Verified 08/23/22 13:39 Vomiting nalbuphine HCl [From Nubain] AdvReac Nausea & Verified 08/23/22 13:39 Vomiting Review of Systems ROS Statement: Those systems with pertinent positive or pertinent negative responses have been documented in the HPI. ROS Other: All systems not noted in ROS Statement are negative. Past Medical History Past Medical History: Diabetes Mellitus, Deep Vein Thrombosis (DVT), Fibromyalgia, Hyperlipidemia, Hypertension, Osteoarthritis (OA), Pneumonia, Renal Disease, Sleep Apnea/CPAP/BIPAP, Vascular Disorder Additional Past Medical History / Comment(s): Pt recently admitted to [facility] with R flank pain. 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, DVT R calf in 1976, cardiac murmur, occipital neuraligia, balance issues-has narrowing of vessels "in the back of my head", vertigo, varicosities, states rt shoulder torn rotator cuff History of Any Multi-Drug Resistant Organisms: ESBL, MRSA, VRE Date of last positivie culture/infection: 11/25/20 ESBL;12/06/19 VRE; 03/10/11 MRSA MDRO Source:: Urine ESBL; Urine-VRE: MRSA 4th Right TOE Past Surgical History: Appendectomy, Back Surgery, Bladder Surgery, Breast Surgery, Cholecystectomy, Heart Catheterization, Hysterectomy, Orthopedic Surge ry, Tonsillectomy Additional Past Surgical History / Comment(s): Lumbar fusions, bladder suspension, occipital nerve blocks, 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, R wrist/elbow nerve repair, bone removed R shoulder, 4th toe R foot partial amputation, bilateral feet/bunionectomies, R knee arthroscopies, R orbit decompression with ethmoidectomy and eyelid lift, EGD, colonoscopies, cystocopies, lithotripsy/stents, bilateral breast reduction, bilateral cataract removals, parathyroid surgery - April 2019, pain clinic procedures Past Anesthesia/Blood Transfusion Reactions: No Reported Reaction Additional Past Anesthesia/Blood Transfusion Reaction / Comment(s): never recieved blood Past Psychological History: Depression Smoking Status: Never smoker Past Alcohol Use History: Occasional Past Drug Use History: None Reported - Past Family History Father Family Medical History: Coronary Artery Disease (CAD), CVA/TIA, Diabetes Mellitus, Myocardial Infarction (MS), Pneumonia Additional Family Medical History / Comment(s): Father at the age of 78yrs from MS and pneumonia. Mother Family Medical History: Cancer, Congestive Heart Failure (CHF) Additional Family Medical History / Comment(s): Mother had uterine cancer. She recently at the age of 96yrs old from shingles. General Exam Limitations: no limitations General appearance: alert, in no apparent distress Head exam: Present: atraumatic, normocephalic, normal inspection Respiratory exam: Present: normal lung sounds bilaterally. Absent: respiratory distress, wheezes, rales, rhonchi, stridor Cardiovascular Exam: Present: regular rate, normal rhythm, normal heart sounds. Absent: systolic murmur, diastolic murmur, rubs, gallop, clicks Extremities exam: Present: other (Limited passive range of motion of the left arm secondary to pain. Tenderness to palpation over the left shoulder and humerus. 2+ radial pulses and capillary refill <1 second.) Neurological exam: Present: alert, oriented X3, CN II-XII intact Psychiatric exam: Present: normal affect, normal mood Skin exam: Present: warm, dry, intact, normal color. Absent: rash Course Vital Signs 08/23/22 11:19 Temperature 98.0 F Pulse Rate 118 H Respiratory 18 Rate Blood Pressure 104/66 O2 Sat by Pulse 98 Oximetry Medical Decision Making - Medical Decision Making This is a 71-year-old female who presents to the emergency department for nausea, vomiting, and left arm pain. Was pt. sent in by a medical professional or institution? @ -No Did you speak to anyone other than the patient for history? @ -No Did you review nursing and triage notes? @ -Yes, and I agree, it is accurate with regards to the patient's symptoms. Were old charts reviewed? @ -Yes, urine culture from 08/04/22. Differential Diagnosis? @ -Differential Nausea and Vomiting: Gastroenteritis, cholecystitis, appendicitis, pancreatitis, migraine, benign positional vertigo, food borne illness, pyelonephritis, irritable bowel syndrome, influenza, Covid, GERD, incarcerated hernia, intestinal obstruction, this is not meant to be an all-inclusive list. What testing was considered but not performed? (CT, X-rays, U/S, labs)? Why? @ -None EKG interpreted by me (3pts min)? @ -Sinus tachycardia. Ventricular rate 100 BPM, AK interval 144 ms, QRS d uration 86 ms, QTC 432 ms. What meds were considered but not given? Why? @ -None Did you discuss the management of the patient with other professionals? @ -Yes, Dr. Gonsales, who accepts the patient for admission. Did you reconcile home meds? @ -Yes Was smoking cessation discussed for >3mins.? @ -No Was critical care preformed (if so, how long)? @ -No Were there social determinants of health that impacted care today? How? (Homelessness, low income, unemployed, alcoholism, drug addiction, transportation, low edu. Level, literacy, decrease access to med. care, custodial, rehab)? @ -No Was there de-escalation of care discussed even if they declined? (Discuss DNR or withdrawal of care, Hospice)? @ -No What co-morbidities impacted this encounter? (DM, HTN, Smoking, COPD, CAD, Cancer, CVA, Hep., AIDS, mental health diagnosis, sleep apnea, morbid obesity)? @ -DM, Atlantic's disease, renal disease, fibromyalgia, osteoarthritis. Was patient admitted / discharged? @ -Admitted. Lab work obtained revealing an elevated troponin and no other acute findings. The patient denies any chest pain or shortness of breath and the arm pain is reproducible. She had temporary symptomatic improvement with the Dilaudid and Reglan. 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 Patient is noted to have a UTI. She states that she recently finished a course of Macrobid for a UTI and does not believe that improved her symptoms whatsoever. When she was treated here in June, she was put on levofloxacin, which she does believe treated her successfully. I did review the urine culture from 08/04/22. Patient started on vancomycin, which the urine culture shows the bacteria will be susceptible to. She has multiple allergies limiting the use of alternative medications. Repeat troponin is still elevated. Troponins have not been elevated for her since 2019, and there is concern that her presentation may be cardiac related. Patient admitted to medicine with cardiology consult. Low int ensity heparin protocol initiated for possible NSTEMI. Undiagnosed new problem with uncertain prognosis? @ -None Drug Therapy requiring intensive monitoring for toxicity (Heparin, Nitro, Insulin, Cardizem)? @ -None Were any procedures done? @ -None Diagnosis/symptom? @ -UTI, elevated troponin, N/V Acute, or Chronic, or Acute on Chronic? @ -Acute Uncomplicated (without systemic symptoms) or Complicated (systemic symptoms)? @ -Complicated Side effects of treatment? @ -None Exacerbation, Progression, or Severe Exacerbation] @ -Not applicable Poses a threat to life or bodily function? @ -Yes This case was discussed in detail with the attending ED physician, Dr. Castellano. Presentation, findings, and treatment plan discussed in detail as well. - Lab Data Result diagrams: 08/23/22 11:30 08/23/22 11:30 Lab Results 08/23/22 08/23/22 08/23/22 Range/Units 11:30 11:30 11:30 WBC 7.3 (3.8-10.6) k/uL RBC 4.45 (3.80-5.40) m/uL Hgb 13.1 (11.4-16.0) gm/dL Hct 40.9 (34.0-46.0) % MCV 91.9 (80.0-100.0) fL MCH 29.5 (25.0-35.0) pg MCHC 32.1 (31.0-37.0) g/dL RDW 13.7 (11.5-15.5) % Plt Count 262 (150-450) k/uL MPV 8.7 Neutrophils % 62 % Lymphocytes % 20 % Monocytes % 8 % Eosinophils % 8 % Basophils % 0 % Neutrophils # 4.6 (1.3-7.7) k/uL Lymphocytes # 1.5 (1.0-4.8) k/uL Monocytes # 0.6 (0-1.0) k/uL Eosinophils # 0.6 (0-0.7) k/uL Basophils # 0.0 (0-0.2) k/uL Sodium 139 (137-145) mmol/L Potassium 3.5 (3.5-5.1) mmol/L Chloride 102 (98-107) mmol/L Carbon Dioxide 25 (22-30) mmol/L Anion Gap 12 mmol/L BUN 12 (7-17) mg/dL Creatinine 0.85 (0.52-1.04) mg/dL Est GFR (CKD-EPI)AfAm 80 (>60 ml/min/1.73 sqM) Est GFR (CKD-EPI)NonAf 69 (>60 ml/min/1.73 sqM) Glucose 126 H (74-99) mg/dL Calcium 8.7 (8.4-10.2) mg/dL Total Bilirubin 0.5 (0.2-1.3) mg/dL AST 19 (14-36) U/L ALT 14 (4-34) U/L Alkaline Phosphatase 83 (38-126) U/L Troponin I 0.051 H* (0.000-0.034) ng/mL Total Protein 5.8 L (6.3-8.2) g/dL Albumin 3.7 (3.5-5.0) g/dL Cortisol 2 ug/dL Urine Color Urine Appearance (Clear) Urine pH (5.0-8.0) Ur Specific [place] (1.001-1.035) Urine Protein (Negative) Urine Glucose (UA) (Negative) Urine Ketones (Negative) Urine Blood (Negative) Urine Nitrite (Negative) Urine Bilirubin (Negative) Urine Urobilinogen (<2.0) mg/dL Ur Leukocyte Esterase (Negative) Urine RBC (0-5) /hpf Urine WBC (0-5) /hpf Ur Squamous Epith Cells (0-4) /hpf Urine Bacteria (None) /hpf Hyaline Casts (0-2) /lpf Urine Mucus (None) /hpf 08/23/22 08/23/22 Range/Units 14:30 14:43 WBC (3.8-10.6) k/uL RBC (3.80-5.40) m/uL Hgb (11.4-16.0) gm/dL Hct (34.0-46.0) % MCV (80.0-100.0) fL MCH (25.0-35.0) pg MCHC (31.0-37.0) g/dL RDW (11.5-15.5) % Plt Count (150-450) k/uL MPV Neutrophils % % Lymphocytes % % Monocytes % % Eosinophils % % Basophils % % Neutrophils # (1.3-7.7) k/uL Lymphocytes # (1.0-4.8) k/uL Monocytes # (0-1.0) k/uL Eosinophils # (0-0.7) k/uL Basophils # (0-0.2) k/uL Sodium (137-145) mmol/L Potassium (3.5-5.1) mmol/L Chloride (98-107) mmol/L Carbon Dioxide (22-30) mmol/L Anion Gap mmol/L BUN (7-17) mg/dL Creatinine (0.52-1.04) mg/dL Est GFR (CKD-EPI)AfAm (>60 ml/min/1.73 sqM) Est GFR (CKD-EPI)NonAf (>60 ml/min/1.73 sqM) Glucose (74-99) mg/dL Calcium (8.4-10.2) mg/dL Total Bilirubin (0.2-1.3) mg/dL AST (14-36) U/L ALT (4-34) U/L Alkaline Phosphatase (38-126) U/L Troponin I 0.048 H* (0.000-0.034) ng/mL Total Protein (6.3-8.2) g/dL Albumin (3.5-5.0) g/dL Cortisol ug/dL Urine Color Yellow Urine Appearance Clear (Clear) Urine pH 5.5 (5.0-8.0) Ur Specific [place] 1.024 (1.001-1.035) Urine Protein Trace H (Negative) Urine Glucose (UA) Negative (Negative) Urine Ketones 1+ H (Negative) Urine Blood Large H (Negative) Urine Nitrite Positive H (Negative) Urine Bilirubin Negative (Negative) Urine Urobilinogen <2.0 (<2.0) mg/dL Ur Leukocyte Esterase Large H (Negative) Urine RBC 49 H (0-5) /hpf Urine WBC 12 H (0-5) /hpf Ur Squamous Epith Cells 1 (0-4) /hpf Urine Bacteria Many H (None) /hpf Hyaline Casts 3 H (0-2) /lpf Urine Mucus Rare H (None) /hpf Disposition Clinical Impression: Elevated troponin level, UTI (urinary tract infection), Nausea and vomiting Disposition: ADMITTED IP TO THIS HOSP Referrals: Andrew Gonsales MD [Primary Care Provider] - 1-2 days
[2022-08-23 12:13] LABS: Albumin 3.7 g/dL (3.5-5.0); Calcium 8.7 mg/dL (8.4-10.2); Potassium 3.5 mmol/L (3.5-5.1); Total Bilirubin 0.5 mg/dL (0.2-1.3); Total Protein 5.8 g/dL (6.3-8.2)
[2022-08-23 12:34] LABS: Basophils % (A) 0 %; Eosinophils # (A) 0.6 k/uL (0-0.7); Eosinophils % (A) 8 %; HCT 40.9 % (34.0-46.0); HGB 13.1 gm/dL (11.4-16.0); Lymphocytes # (A) 1.5 k/uL (1.0-4.8); Lymphocytes % (A) 20 %; MCH 29.5 pg (25.0-35.0); MCHC 32.1 g/dL (31.0-37.0); MCV 91.9 fL (80.0-100.0); Mean Platelet Volume 8.7; Monocytes # (A) 0.6 k/uL (0-1.0); Monocytes % (A) 8 %; Neutrophils # (A) 4.6 k/uL (1.3-7.7); Neutrophils % (A) 62 %; Platelet Count 262 k/uL (150-450); RBC 4.45 m/uL (3.80-5.40); RDW 13.7 % (11.5-15.5); WBC 7.3 k/uL (3.8-10.6)
[2022-08-23] MEDS ORDERED: ONDANSETRON 4 MG/2 ML VIAL IVP STA (13:25)
[2022-08-23] MEDS ORDERED: HYDROmorphone 0.5 MG/0.5 ML SYRINGE IVP STA (13:25)
[2022-08-23 15:53] LABS: Appearance,Urine Clear (Clear); Bacteria,Urine Many /hpf; Bilirubin,Urine Negative (Negative); Blood,Urine Large (Negative); Color,Urine Yellow; Glucose,Urine (UA) Negative (Negative); Hyaline Casts,Urine 3 /lpf (0-2); Ketones,Urine 1+ (Negative); Leukocyte Esterase,Urine Large (Negative); Mucus,Urine Rare /hpf; Nitrite,Urine Positive (Negative); PH, Urine 5.5 (5.0-8.0); Protein,Urine Trace (Negative); RBC,Urine 49 /hpf (0-5); Specific Gravity,Urine 1.024 (1.001-1.035); Squamous Epithelial Cell,Urine 1 /hpf (0-4); Urobilinogen,Urine <2.0 mg/dL (<2.0); WBC,Urine 12 /hpf (0-5)
[2022-08-23] MEDS ORDERED: HEPARIN SODIUM 1,000 UN/ML (10ML VL) IV ONE (15:58)
[2022-08-23] MEDS ORDERED: HEPARIN SODIUM 1,000 UN/ML (10ML VL) IV PRN (15:58)
[2022-08-23] MEDS ORDERED: HEPARIN SOD,PORK IN 0.45% NACL 25,000 UNIT in 0.45% NACL 1 250ML.BAG IV SCH (16:00)
[2022-08-23] MEDS ORDERED: NITROFURANTOIN MONOHYD/M-CRYST 100 MG CAP PO SCH (16:01)
[2022-08-23] MEDS ORDERED: LEVOFLOXACIN 750 MG TAB PO STA (16:17)
[2022-08-23] MEDS ORDERED: NALOXONE 0.4 MG/ML 1 ML VIAL IV PRN (16:18)
[2022-08-23] MEDS ORDERED: ACETAMINOPHEN TAB 325 MG TAB PO PRN (16:18)
[2022-08-23] MEDS ORDERED: MELATONIN 5 MG TABLET PO PRN (16:19)
[2022-08-23] MEDS ORDERED: methocarbamoL 500 MG TAB PO PRN (16:19)
[2022-08-23] MEDS ORDERED: BUTALB/APAP/CAFF 50-325-40MG TAB PO PRN (16:19)
[2022-08-23] MEDS ORDERED: VANCOMYCIN IV PER PHARMACY 1 EACH MISC MISCELLANE SCH (16:30)
[2022-08-23] MEDS ORDERED: Insulin Aspart (For Pump) 100 UNIT/ML VIAL SQ-PUMP SCH (16:30)
[2022-08-23] MEDS ORDERED: VANCOMYCIN 1,250 MG in SODIUM CHLORIDE 0.9% 250 ML IVPB SCH (17:00)
[2022-08-23 18:11] LABS: Glucose,Whole Blood 155 mg/dL (70-110)
[2022-08-23] MEDS: ONDANSETRON 4 MG/2 ML VIAL IVP PRN (18:27)
[2022-08-23] MEDS: HYDROmorphone 0.5 MG/0.5 ML SYRINGE IVP PRN ×2 (18:27→22:04)
[2022-08-23 19:26] LABS: INR 1.2 (<1.2); Partial Thromboplastin Time 34.7 sec (22.0-30.0)
[2022-08-23] MEDS ORDERED: VITAMIN B COMPLEX PO SCH (21:00)
[2022-08-23] MEDS ORDERED: HYDROCORTISONE 10 MG TAB PO SCH (21:00)
[2022-08-23 21:44] LABS: Glucose,Whole Blood 130 mg/dL (70-110)
[2022-08-23] MEDS: DORZOLAMIDE HCL 2% DROPS 10 ML BTL RIGHT EYE SCH (22:06)
[2022-08-23] MEDS: BRIMONIDINE TARTRATE 0.2% DROPS 5 ML BTL RIGHT EYE SCH (22:07)
[2022-08-23] MEDS: METOCLOPRAMIDE 5 MG TAB PO PRN (23:42)
[2022-08-23] MEDS: METOPROLOL SUCCINATE (ER) 100 MG TAB.ER.24H PO SCH (23:42)
[2022-08-23] MEDS: ATORVASTATIN 10 MG TAB PO SCH (23:43)
[2022-08-23] MEDS: busPIRone HCl 5 MG TAB PO SCH (23:43)
[2022-08-23] MEDS: GABAPENTIN 100 MG CAP PO SCH (23:44)
[2022-08-23] MEDS: INSULIN ASPART (NovoLOG) 100 UNIT/ML VIAL SQ SCH (23:44)
[2022-08-23] MEDS: LACTOBACILLUS ACIDOPH & BULGAR 1 EACH PACKET PO SCH (23:44)
[2022-08-24] MEDS: HYDROmorphone 1 MG/ML 1 ML SYRINGE IVP PRN ×5 (00:49→21:19)
[2022-08-24] MEDS: ONDANSETRON 4 MG/2 ML VIAL IVP PRN (02:04)
[2022-08-24] MEDS: HYDROmorphone 0.5 MG/0.5 ML SYRINGE IVP PRN ×2 (03:52→08:23)
[2022-08-24] MEDS ORDERED: diphenhydrAMINE 50 MG/ML 1 ML VIAL IVP STA (06:26)
[2022-08-24 06:30] LABS: Glucose,Whole Blood 145 mg/dL (70-110)
[2022-08-24] MEDS: INSULIN ASPART (NovoLOG) 100 UNIT/ML VIAL SQ SCH ×4 (06:32→21:19)
[2022-08-24] MEDS: BRIMONIDINE TARTRATE 0.2% DROPS 5 ML BTL RIGHT EYE SCH (08:27)
[2022-08-24] MEDS: DORZOLAMIDE HCL 2% DROPS 10 ML BTL RIGHT EYE SCH ×2 (08:27→21:19)
[2022-08-24] MEDS ORDERED: NON FORMULARY DRUG (Potassium [Potassium] 99 MG Tablet) PO SCH (09:00)
[2022-08-24] MEDS ORDERED: NON FORMULARY DRUG (Cranberry Fruit Extract [Cranberry] 500 MG Tablet) PO SCH (09:00)
[2022-08-24] MEDS ORDERED: HYDROCORTISONE 10 MG TAB PO SCH ×2 (09:00→12:00)
[2022-08-24 09:34] LABS: African American GFR (CKD) >90 (>60 ml/min/1.73 sqM); Non-African American GFR(CKD) 82 (>60 ml/min/1.73 sqM)
[2022-08-24] MEDS ORDERED: ONDANSETRON 4 MG/2 ML VIAL IVP PRN (09:43)
[2022-08-24] MEDS ORDERED: ACETAMINOPHEN IV (For NPO) 1,000 MG in EMPTY BAG 1 BAG IVPB STA (09:45)
[2022-08-24] MEDS ORDERED: MAGNESIUM SULFATE-D5W PMX 1 GM in DEXTROSE/WATER 1 100ML.BAG IVPB ONE (09:45)
[2022-08-24] MEDS: lisinopriL 10 MG TAB PO SCH (09:47)
[2022-08-24 09:54] LABS: Magnesium 1.4 mg/dL (1.6-2.3)
[2022-08-24] MEDS: buPROPion SR 100 MG TABLET.ER PO SCH (09:58)
[2022-08-24] MEDS: CYANOCOBALAMIN 500 MCG TAB PO SCH (09:59)
[2022-08-24] MEDS: busPIRone HCl 5 MG TAB PO SCH ×2 (09:59→21:18)
[2022-08-24] MEDS: CHOLECALCIFEROL 25 MCG (1000 IU) TABLET PO SCH (09:59)
[2022-08-24] MEDS ORDERED: LEVOFLOXACIN 750MG-D5W PMX 750 MG in DEXTROSE/WATER 1 150ML.BAG IVPB SCH (10:00)
[2022-08-24] MEDS ORDERED: Potassium Replacement Protocol 1 EACH MISC MISCELLANE PRN (10:03)
[2022-08-24] MEDS: FOLIC ACID 1 MG TAB PO SCH (10:04)
[2022-08-24] MEDS: FERROUS SULFATE 325 MG TAB PO SCH (10:04)
[2022-08-24] MEDS: GABAPENTIN 100 MG CAP PO SCH ×3 (10:05→21:17)
[2022-08-24] MEDS: hydroCHLOROthiazide 25 MG TAB PO SCH (10:05)
[2022-08-24] MEDS: LACTOBACILLUS ACIDOPH & BULGAR 1 EACH PACKET PO SCH ×2 (10:06→21:18)
[2022-08-24] MEDS: MULTIVITAMINS, THERA 1 EACH TAB PO SCH (10:06)
[2022-08-24] MEDS: VITAMIN E (DL,TOCOPHERYL ACET) 400 UNIT (180 MG) CAP PO SCH (10:37)
[2022-08-24] MEDS: MAGNESIUM OXIDE 400 MG TAB PO SCH (10:37)
[2022-08-24] MEDS: SPIRONOLACTONE 25 MG TAB PO SCH (10:37)
[2022-08-24] MEDS: VIT A,C & E-LUTEIN-MINERALS 1 EACH TAB PO SCH (10:37)
[2022-08-24] MEDS: PANTOPRAZOLE 40 MG TABLET PO SCH (10:37)
[2022-08-24] MEDS: THIAMINE 100 MG TAB PO SCH (10:37)
[2022-08-24] MEDS: HYDROCORTISONE SUCCINATE 100 MG/2 ML VIAL IV SCH ×2 (10:47→18:21)
[2022-08-24 11:53] LABS: Glucose,Whole Blood 204 mg/dL (70-110)
--- NOTE | 2022-08-24 12:17 | P.CRDCN ---
History of Present Illness Consult date: 08/24/22 History of present illness: HISTORY OF PRESENT ILLNESS: This is a 71-year-old female with a past medical history significant for hypertension, hyperlipidemia, coronary artery disease with 60% proximal LAD stenosis, valvular heart disease, thoracic aortic aneurysm, and adrenal insufficiency. Patient follows in the office with Dr. Rosenberg. We have been asked to see the patient in consultation for abnormal troponins. Patient examined at the bedside. Patient states she presented to the hospital with a chief complaint of urinary frequency and burning. She also reports nausea and vomiting. She denied any chest pain or pressure. She denies any shortness of breath. The patient was found to have mildly elevated troponins at 0.048 and 0.051. She was started on IV heparin in the emergency room. The patient's blood pressure this morning is slightly elevated. However she has refused her morning medication secondary to nausea. * EKG reveals sinus mechanism with no signs of acute ischemia * Laboratory data: WBC 7.3. Hemoglobin 13.1. Platelet count 262. Sodium 139. Potassium 3.5. BUN 12. Creatinine 0.74. Troponin 0.048. 0.051. * Current home cardiac medications include lisinopril 30 mg daily, spironolactone 50 mg daily, Crestor 5 mg at night, metoprolol succinate 100 mg at night, aspirin 81 mg daily * Most recent echocardiogram obtained in December 2020 revealed ejection fraction 60-65%, trace aortic regurgitation, trace to mild mitral regurgitation, mild tricuspid regurgitation, and borderline pulmonary hypertension. * Cardiac catheterization history: October 2018 revealing intermediate disease involving the proximal LAD with 60% stenosis REVIEW OF SYSTEMS: At the time of my exam: CONSTITUTIONAL: Denies fever or chills. HEENT: Denies blurred vision, vision changes, or eye pain. Denies hemoptysis CARDIOVASCULAR: Denies chest pain. Denies orthopnea. Denies PND. Denies palpitations RESPIRATORY: Denies shortness of breath. GASTROINTESTINAL: Denies abdominal pain. Denies nausea or vomiting. HEMATOLOGIC: Denies bleeding disorders. GENITOURINARY: Denies any blood in urine. SKIN: Denies pruitis. Denies rash. PHYSICAL EXAM: VITAL SIGNS: Reviewed. GENERAL: Well-developed in no acute distress. HEENT: Head is normocephalic. Pupils are equal, round. Sclerae anicteric. Mucous membranes of the mouth are moist. Neck supple. No JVD or thyromegaly LUNGS: Respirations even and unlabored. Lungs essentially clear to auscultation bilaterally. HEART: Regular rate and rhythm. S1 and S2 heard. ABDOMEN: Soft. Nondistended. Nontender. EXTREMITIES: Normal range of motion. No clubbing or cyanosis. Peripheral pulses intact. No lower extremity edema NEUROLOGIC: Awake and alert. Oriented x 3. ASSESSMENT: Urinary tract infection Chronic nausea Abnormal troponins, flat, not suggestive of acute coronary syndrome Hypertension Hyperlipidemia Coronary artery disease with 60% proximal LAD stenosis, per cardiac catheterization in October 2018 Valvular heart disease Thoracic aortic aneurysm History of renal insufficiency PLAN: An acute coronary event has been ruled out Resume home cardiac medications when patient's nausea improves Obtain 2-D echo to assess cardiac structure and function Further recommendations pending patient's course Nurse practitioner note has been reviewed by physician. Signing provider agrees with the documented findings, assessment, and plan of care. Past Medical History Past Medical History: Diabetes Mellitus, Deep Vein Thrombosis (DVT), Fibromyalgia, Hyperlipidemia, Hypertension, Osteoarthritis (OA), Pneumonia, Renal Disease, Sleep Apnea/CPAP/BIPAP, Vascular Disorder Additional Past Medical History / Comment(s): Pt recently admitted to [facility] with R flank pain. 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, DVT R calf in 1976, cardiac murmur, occipital neuraligia, balance issues-has narrowing of vessels "in the back of my head", vertigo, varicosities, states rt shoulder torn rotator cuff History of Any Multi-Drug Resistant Organisms: ESBL, MRSA, VRE Date of last positivie culture/infection: 11/25/20 ESBL;12/06/19 VRE; 03/10/11 MRSA MDRO Source:: Urine ESBL; Urine-VRE: MRSA 4th Right TOE Past Surgical History: Appendectomy, Back Surgery, Bladder Surgery, Breast Surgery, Cholecystectomy, Heart Catheterization, Hysterectomy, Orthopedic Surgery, Tonsillectomy Additional Past Surgical History / Comment(s): Lumbar fusions, bladder suspension, occipital nerve blocks, 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, R wrist/elbow nerve repair, bone removed R shoulder, 4th toe R foot partial amputation, bilateral feet/bunionectomies, R knee arthroscopies, R orbit d ecompression with ethmoidectomy and eyelid lift, EGD, colonoscopies, cystocopies, lithotripsy/stents, bilateral breast reduction, bilateral cataract removals, parathyroid surgery - April 2019, pain clinic procedures Past Anesthesia/Blood Transfusion Reactions: No Reported Reaction Additional Past Anesthesia/Blood Transfusion Reaction / Comment(s): never recieved blood Past Psychological History: Depression Additional Psychological History / Comment(s): Pt resides with her spouse. She uses a walker. She normally drives. She has a nebulizer, cpap, bsc, shower chair, bp machine, dexcom monitor system for her BG and insulin pump. Smoking Status: Never smoker Past Alcohol Use History: Occasional Additional Past Alcohol Use History / Comment(s): no alcohol Past Drug Use History: None Reported - Past Family History Father Family Medical History: Coronary Artery Disease (CAD), CVA/TIA, Diabetes Mellitus, Myocardial Infarction ([place]), Pneumonia Additional Family Medical History / Comment(s): Father at the age of 78yrs from [place] and pneumonia. Mother Family Medical History: Cancer, Congestive Heart Failure (CHF) Additional Family Medical History / Comment(s): Mother had uterine cancer. She recently at the age of 96yrs old from shingles. Medications and Allergies Home Medications Medication Instructions Recorded Confirmed Type Meclizine [Antivert] 25 mg PO QID PRN 11/26/17 08/23/22 History Aspirin 81 mg PO DAILY #0 07/02/18 08/23/22 Rx Ferrous Sulfate [Iron (65 MG 325 mg PO DAILY 10/08/18 08/23/22 History Elemental)] Folic Acid 0.4 mg PO DAILY 10/08/18 08/23/22 History L.acidoph,Paracasei, B.lactis 2 cap PO BID 10/08/18 08/23/22 History [Probiotic] Melatonin 5 mg PO HS PRN 10/08/18 08/23/22 History Potassium 99 mg PO DAILY 10/08/18 08/23/22 History Thiamine [Vitamin B-1] 100 mg PO DAILY 10/08/18 08/23/22 History Vitamin B-Complex Drops 1 drop PO BID 10/08/18 08/23/22 History Gabapentin [Neurontin] 100 mg PO TID #9 cap 03/24/20 08/23/22 Rx C,E,Zinc,Copper 11/Vdbks6j/Lut 1 cap PO DAILY 06/25/20 08/23/22 History [Ocuvite Adult 50 Plus Softgel] Cyanocobalamin (Vitamin B-12) 1,000 mcg PO DAILY 06/25/20 08/23/22 History [Vitamin B-12] Spironolactone 50 mg PO DAILY 06/25/20 08/23/22 History Vitamin E 400 unit PO DAILY 06/25/20 08/23/22 History Brimonidine Tartrate [Alphagan P 1 drop RIGHT EYE BID 11/26/20 08/23/22 History 0.2% Ophth Soln] Glucagon [Gvoke Pfs 1-Pack Syringe] 1 mg SQ ONCE PRN 11/26/20 08/23/22 History Pantoprazole Sodium [Protonix] 40 mg PO DAILY 11/26/20 08/23/22 History busPIRone HCl [Buspar] 5 mg PO BID 02/04/21 08/23/22 History Nystatin 1 applic TOPICAL BID PRN 02/17/21 08/23/22 History Insulin Aspart (For Pump) [NovoLOG 0.01 unit SQ-PUMP CONTINUOUS 03/03/21 08/23/22 History (For Pump)] Rosuvastatin Calcium [Crestor] 5 mg PO HS 08/15/21 08/23/22 History Metoprolol Succinate [Toprol XL] 100 mg PO HS 09/06/21 08/23/22 History Cholecalciferol [Vitamin D3 (25 75 mcg PO DAILY 09/21/21 08/23/22 History Mcg = 1000 Iu)] Promethazine [Phenergan] 25 mg PO BID PRN 09/21/21 08/23/22 History Butalb/APAP/Caff 50-325-40Mg 1 tab PO Q6H PRN 05/25/22 08/23/22 History [Fioricet 50-325-40] Cranberry Fruit Extract [Cranberry] 1,000 mg PO DAILY 05/25/22 08/23/22 History Dorzolamide 2% [Trusopt 2%] 1 drop RIGHT EYE BID 05/25/22 08/23/22 History Magnesium Oxide [Magnesium] 500 mg PO DAILY 05/25/22 08/23/22 History Multivit-Min/Folic Acid/Gdb099 1 tab PO DAILY 05/25/22 08/23/22 History [Alive Premium Adult Multivit] Promethazine HCl [Phenergan Syrup] 6.25 mg PO Q6H PRN 05/25/22 08/23/22 History buPROPion HCL [Wellbutrin SR] 200 mg PO DAILY 05/25/22 08/23/22 History hydroCHLOROthiazide [Hydrodiuril] 25 mg PO DAILY 05/25/22 08/23/22 History Hydrocortisone [Cortef] 5 mg PO HS #0 05/30/22 08/23/22 Rx Hydrocortisone [Cortef] 10 mg PO DAILY@1200 #0 05/30/22 08/23/22 Rx Hydrocortisone [Cortef] 15 mg PO DAILY #0 05/30/22 08/23/22 Rx Ondansetron Odt [Zofran ODT] 8 mg PO Q8HR PRN #15 tab 07/04/22 08/23/22 Rx HYDROcodone/APAP 10-325MG [[place] 1 tab PO Q4H PRN 07/17/22 08/23/22 History 10-325] Metoclopramide [Reglan] 5 mg PO TID PRN 07/17/22 08/23/22 History lisinopriL [Zestril] 30 mg PO DAILY 07/17/22 08/23/22 History methocarbamoL [Methocarbamol] 1,000 mg PO Q6H PRN 07/17/22 08/23/22 History Cephalexin [Keflex] 250 mg PO HS #0 07/19/22 08/23/22 Rx Diclofenac Sodium Gel [Voltaren 2 gm TOPICAL QID PRN 08/03/22 08/23/22 History Gel] Allergies Allergy/AdvReac Type Severity Reaction Status Date / Time butorphanol tartrate Allergy BLISTERS Verified 08/23/22 13:39 [From Stadol] IN MOUTH ceftriaxone [From Rocephin] Allergy Unknown Verified 08/23/22 13:39 clarithromycin [From Biaxin] Allergy Rash/Hives Verified 08/23/22 13:39 clindamycin Allergy Unknown Verified 08/23/22 13:39 codeine Allergy Rash/Hives Verified 08/23/22 13:39 ergotamine tartrate Allergy Unknown Verified 08/23/22 13:39 [From Cafergot] erythromycin base Allergy RASH, GI Verified 08/23/22 13:39 [From E-Mycin] SYMPTOMS ketorolac tromethamine Allergy Rash/Hives Verified 08/23/22 13:39 [From Toradol] liraglutide [From Victoza] Allergy Rash/Hives Verified 08/23/22 13:39 morphine Allergy Rash/Hives Verified 08/23/22 13:39 Penicillins Allergy Rash/Hives Verified 08/23/22 13:39 on upper body pentazocine lactate Allergy SEVERE Verified 08/23/22 13:39 [From Talwin] BLISTERS IN MOUTH pregabalin [From Lyrica] Allergy Rash/Hives Verified 08/23/22 13:39 propoxyphene HCl Allergy Rash/Hives Verified 08/23/22 13:39 [From Darvon] Sulfa (Sulfonamide Allergy Rash/Hives Verified 08/23/22 13:39 Antibiotics) tramadol Allergy Unknown Verified 08/23/22 13:39 monosodium glutamate [MSG] AdvReac Nausea & Verified 08/23/22 13:39 Vomiting nalbuphine HCl [From Nubain] AdvReac Nausea & Verified 08/23/22 13:39 Vomiting Physical Exam Vitals: Vital Signs Temp Pulse Pulse Resp BP BP Pulse Ox 08/24/22 04:00 99 F 98 18 159/78 94 L 08/24/22 02:00 89 18 08/24/22 00:00 98.4 F 89 18 148/83 94 L 08/23/22 21:45 98.7 F 92 18 170/85 98 08/23/22 20:52 92 18 166/87 97 08/23/22 19:03 96 18 150/81 95 Intake and Output 08/23/22 08/24/22 08/24/22 22:59 06:59 14:59 Intake Total 58.918 Output Total 150 Balance -91.082 Intake: Intake, IV Titration 58.918 Amount Heparin Sod,Pork in 0.45% 58.918 NaCl 25,000 unit In 0.45 % NaCl 1 250ml.bag @ 12 UNITS/KG/HR 8.437 mls/hr IV .Q24H [facility] Rx#: [id number] Output: Urine 150 Other: Voiding Method External Catheter # Bowel Movements 1 1 Weight 70.307 kg Results 08/23/22 11:30 08/24/22 08:50 Cardiac Enzymes 08/23/22 08/23/22 08/23/22 Range/Units 11:30 11:30 14:43 AST 19 (14-36) U/L Troponin I 0.051 H* 0.048 H* (0.000-0.034) ng/mL Coagulation 08/23/22 08/24/22 08/24/22 Range/Units 18:58 01:18 08:50 PT 12.0 (9.0-12.0) sec APTT 34.7 H 31.0 H 34.3 H (22.0-30.0) sec CBC 08/23/22 Range/Units 11:30 WBC 7.3 (3.8-10.6) k/uL RBC 4.45 (3.80-5.40) m/uL Hgb 13.1 (11.4-16.0) gm/dL Hct 40.9 (34.0-46.0) % Plt Count 262 (150-450) k/uL Comprehensive Metabolic Panel 08/23/22 08/24/22 Range/Units 11:30 08:50 Sodium 139 (137-145) mmol/L Potassium 3.5 (3.5-5.1) mmol/L Chloride 102 (98-107) mmol/L Carbon Dioxide 25 (22-30) mmol/L BUN 12 (7-17) mg/dL Creatinine 0.85 0.74 (0.52-1.04) mg/dL Glucose 126 H (74-99) mg/dL Calcium 8.7 (8.4-10.2) mg/dL AST 19 (14-36) U/L ALT 14 (4-34) U/L Alkaline Phosphatase 83 (38-126) U/L Total Protein 5.8 L (6.3-8.2) g/dL Albumin 3.7 (3.5-5.0) g/dL Current Medications Generic Name Dose Route Start Last Admin Trade Name Freq PRN Reason Stop Dose Admin Acetaminophen 650 mg 08/23/22 16:18 Acetaminophen Tab 325 Mg Tab PO Q6HR PRN Mild Pain or Fever > 100.5 Acetaminophen/Butalbital/Caffeine 1 each 08/23/22 16:19 Butalb/Apap/Caff 50-325-40mg Tab PO Q6H PRN Migraine Headache Atorvastatin Calcium 10 mg 08/23/22 21:00 08/23/22 23:43 Atorvastatin 10 Mg Tab PO Not Given HS KIARA Brimonidine Tartrate 1 drops 08/23/22 21:00 08/24/22 08:27 Brimonidine Tartrate 0.2% Drops 5 Ml Btl RIGHT EYE 1 drops BID KIARA Administration Bupropion HCl 200 mg 08/24/22 09:00 08/24/22 09:58 Bupropion Sr 100 Mg Tablet.Er PO Not Given DAILY [facility] Buspirone HCl 5 mg 08/23/22 21:00 08/24/22 09:59 Buspirone Hcl 5 Mg Tab PO Not Given BID [facility] Cholecalciferol 75 mcg 08/24/22 09:00 08/24/22 09:59 Cholecalciferol 25 Mcg (1000 Iu) Tablet PO Not Given DAILY [facility] Cyanocobalamin 1,000 mcg 08/24/22 09:00 08/24/22 09:59 Cyanocobalamin 500 Mcg Tab PO Not Given DAILY [facility] Dorzolamide HCl 1 drops 08/23/22 21:00 08/24/22 08:27 Dorzolamide Hcl 2% Drops 10 Ml Btl RIGHT EYE 1 drops BID KIARA Administration Ferrous Sulfate 325 mg 08/24/22 09:00 08/24/22 10:04 Ferrous Sulfate 325 Mg Tab PO Not Given DAILY [facility] Folic Acid 0.5 mg 08/24/22 09:00 08/24/22 10:04 Folic Acid 1 Mg Tab PO Not Given DAILY [facility] Gabapentin 100 mg 08/23/22 22:00 08/24/22 10:05 Gabapentin 100 Mg Cap PO Not Given TID [facility] Heparin Sodium (Porcine) 0 unit 08/23/22 15:58 Heparin Sodium 1,000 Un/Ml (10ml Vl) IV PER PROTOCOL PRN Low PTT Protocol Hydrochlorothiazide 25 mg 08/24/22 09:00 08/24/22 10:05 Hydrochlorothiazide 25 Mg Tab PO Not Given DAILY [facility] Hydrocortisone Sodium Succinate 50 mg 08/24/22 09:52 08/24/22 10:47 Hydrocortisone Succinate 100 Mg/2 Ml Vial IV 50 mg Q6HR [facility]ARA Administration Hydromorphone HCl 0.5 mg 08/23/22 16:18 08/24/22 08:23 Hydromorphone 0.5 Mg/0.5 Ml Syringe IVP 0.5 mg Q3HR PRN Administration Moderate Pain (Scale 4 to 6) Hydromorphone HCl 1 mg 08/23/22 16:18 08/24/22 11:29 Hydromorphone 1 Mg/Ml 1 Ml Syringe IVP 1 mg Q3HR PRN Administration Severe Pain (Scale 7 to 10) Levofloxacin 750 mg/ IV 150 mls @ 100 mls/hr 08/24/22 10:00 Solution IVPB Q48H [facility] Protocol Insulin Aspart 0 unit 08/23/22 21:00 08/24/22 06:32 Insulin Aspart (Novolog) 100 Unit/Ml Vial SQ Not Given ACHS [facility] Protocol Lactobacillus Acidoph/Bulgaricus 1 each 08/23/22 21:00 08/24/22 10:06 Lactobacillus Acidoph & Bulgar 1 Each Packet PO Not Given BID [facility] Lisinopril 30 mg 08/24/22 09:00 08/24/22 09:47 Lisinopril 10 Mg Tab PO 30 mg DAILY [facility] Administration Magnesium Oxide 400 mg 08/24/22 09:00 08/24/22 10:37 Magnesium Oxide 400 Mg Tab PO Not Given DAILY [facility] Melatonin 5 mg 08/23/22 16:19 Melatonin 5 Mg Tablet PO HS PRN Insomnia Methocarbamol 1,000 mg 08/23/22 16:19 Methocarbamol 500 Mg Tab PO Q6H PRN Muscle Pain Metoclopramide HCl 5 mg 08/23/22 16:19 08/23/22 23:42 Metoclopramide 5 Mg Tab PO 5 mg TID PRN Administration Nausea Metoprolol Succinate 100 mg 08/23/22 21:00 08/23/22 23:42 Metoprolol Succinate (Er) 100 Mg Tab.Er.24h PO 100 mg HS [facility]ARA Administration Miscellaneous Information 1 each 08/24/22 10:03 Potassium Replacement Protocol 1 Each Misc MISCELLANE DAILY PRN Per Protocol Protocol Multivitamins 1 each 08/24/22 09:00 08/24/22 10:06 Multivitamins, Thera 1 Each Tab PO Not Given DAILY [facility] Multivitamins/Minerals 1 each 08/24/22 09:00 08/24/22 10:37 Vit A,C & V-Yljjwh-Oghantpe 1 Each Tab PO Not Given DAILY [facility] Naloxone HCl 0.2 mg 08/23/22 16:18 Naloxone 0.4 Mg/Ml 1 Ml Vial IV Q2M PRN Opioid Reversal Ondansetron HCl 4 mg 08/24/22 09:43 08/24/22 09:47 Ondansetron 4 Mg/2 Ml Vial IVP 4 mg Q6H PRN Administration Nausea And Vomiting Pantoprazole Sodium 40 mg 08/24/22 09:00 08/24/22 10:37 Pantoprazole 40 Mg Tablet PO Not Given DAILY [facility] Spironolactone 50 mg 08/24/22 09:00 08/24/22 10:37 Spironolactone 25 Mg Tab PO Not Given DAILY [facility] Thiamine HCl 100 mg 08/24/22 09:00 08/24/22 10:37 Thiamine 100 Mg Tab PO Not Given DAILY [facility] Vitamin E 400 unit 08/24/22 09:00 08/24/22 10:37 Vitamin E (Dl,Tocopheryl Acet) 400 Unit (180 Mg) Cap PO Not Given DAILY [facility] Intake and Output 08/23/22 08/24/22 08/24/22 22:59 06:59 14:59 Intake Total 58.918 Output Total 150 Balance -91.082 Intake: Intake, IV Titration 58.918 Amount Heparin Sod,Pork in 0.45% 58.918 NaCl 25,000 unit In 0.45 % NaCl 1 250ml.bag @ 12 UNITS/KG/HR 8.437 mls/hr IV .Q24H [facility] Rx#: [id number] Output: Urine 150 Other: Voiding Method External Catheter # Bowel Movements 1 1 Weight 70.307 kg 08/23/22 11:30 08/24/22 08:50
[2022-08-24] MEDS ORDERED: ERTAPENEM 1 GM in SODIUM CHLORIDE 0.9% 50 ML IVPB SCH (16:00)
[2022-08-24 16:57] LABS: Glucose,Whole Blood 123 mg/dL (70-110)
--- NOTE | 2022-08-24 17:47 | P.HPIM ---
History of Present Illness H&P Date: 08/24/22 Chief Complaint: Right flank pain, nausea This is a pleasant 71-year-old female with past medical history of cervical radiculopathy with recent bone spur removal plus fusion of C4-5-6 [facility], June, chronic cystitis with history of MDR bacteria,adrenal insufficency, T2DM, migraine, chronic pain, and multiple other medical issues returned to the ER with right flank pain, insomnia, accompanied by nausea, decreased appetite, increased weakness 2-3 days . Patient had previously been in the ER with similar symptoms 2 days prior. [place] dehydrated. Denies chest pain, palpitations or shortness of breath. Denies cough congestion. Denies emesis or diarrhea. Currently reports headache. UA reporting many bacteria, large leukocytes and positive nitrates. Received IV fluid hydration, Dilaudid and received vancomycin. Patient had an anaphylactic reaction to vancomycin, significant edema of lips, airway stable.EKG reported sinus tachycardia, troponi n 0.051, 0.048. afebrile, T-max 99.3, normal WBC, hemoglobin 13.1, platelets 262, sodium 139, potassium 3.5, bicarbonate 25, BUN 12, creatinine 0.74. Blood sugars controlled. Cardiology consult in place. Review of Systems ROS Statement: Those systems with pertinent positive or pertinent negative responses have been documented in the HPI. ROS Other: All systems not noted in ROS Statement are negative. Past Medical History Past Medical History: Diabetes Mellitus, Deep Vein Thrombosis (DVT), Fibromyalgia, Hyperlipidemia, Hypertension, Osteoarthritis (OA), Pneumonia, Renal Disease, Sleep Apnea/CPAP/BIPAP, Vascular Disorder Additional Past Medical History / Comment(s): Pt recently admitted to [facility] with R flank pain. 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, DVT R calf in 1976, cardiac murmur, occipital neuraligia, balance issues-has narrowing of vessels "in the back of my head", vertigo, varicosities, states rt shoulder torn rotator cuff History of Any Multi-Drug Resistant Organisms: ESBL, MRSA, VRE Date of last positivie culture/infection: 11/25/20 ESBL;12/06/19 VRE; 03/10/11 MRSA MDRO Source:: Urine ESBL; Urine-VRE: MRSA 4th Right TOE Past Surgical History: Appendectomy, Back Surgery, Bladder Surgery, Breast S urgery, Cholecystectomy, Heart Catheterization, Hysterectomy, Orthopedic Surgery, Tonsillectomy Additional Past Surgical History / Comment(s): Lumbar fusions, bladder suspensi on, occipital nerve blocks, 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, R wrist/elbow nerve repair, bone removed R shoulder, 4th toe R foot partial amputation, bilateral feet/bunionectomies, R knee arthroscopies, R orbit decompression with ethmoidectomy and eyelid lift, EGD, colonoscopies, cystocopies, l ithotripsy/stents, bilateral breast reduction, bilateral cataract removals, parathyroid surgery - April 2019, pain clinic procedures Past Anesthesia/Blood Transfusion Reactions: No Reported Reaction Additional Past Anesthesia/Blood Transfusion Reaction / Comment(s): never recieved blood Past Psychological History: Depression Additional Psychological History / Comment(s): Pt resides with her spouse. She uses a walker. She normally drives. She has a nebulizer, cpap, bsc, shower chair, bp machine, dexcom monitor system for her BG and insulin pump. Smoking Status: Never smoker Past Alcohol Use History: Occasional Additional Past Alcohol Use History / Comment(s): no alcohol Past Drug Use History: None Reported - Past Family History Father Family Medical History: Coronary Artery Disease (CAD), CVA/TIA, Diabetes Mellitus, Myocardial Infarction (VT), Pneumonia Additional Family Medical History / Comment(s): Father at the age of 78yrs from VT and pneumonia. Mother Family Medical History: Cancer, Congestive Heart Failure (CHF) Additional Family Medical History / Comment(s): Mother had uterine cancer. She recently at the age of 96yrs old from shingles. Medications and Allergies Home Medications Medication Instructions Recorded Confirmed Type Meclizine [Antivert] 25 mg PO QID PRN 11/26/17 08/23/22 History Aspirin 81 mg PO DAILY #0 07/02/18 08/23/22 Rx Ferrous Sulfate [Iron (65 MG 325 mg PO DAILY 10/08/18 08/23/22 History Elemental)] Folic Acid 0.4 mg PO DAILY 10/08/18 08/23/22 History L.acidoph,Paracasei, B.lactis 2 cap PO BID 10/08/18 08/23/22 History [Probiotic] Melatonin 5 mg PO HS PRN 10/08/18 08/23/22 History Potassium 99 mg PO DAILY 10/08/18 08/23/22 History Thiamine [Vitamin B-1] 100 mg PO DAILY 10/08/18 08/23/22 History Vitamin B-Complex Drops 1 drop PO BID 10/08/18 08/23/22 History Gabapentin [Neurontin] 100 mg PO TID #9 cap 03/24/20 08/23/22 Rx C,E,Zinc,Copper 11/[id number]/Lut 1 cap PO DAILY 06/25/20 08/23/22 History [Ocuvite Adult 50 Plus Softgel] Cyanocobalamin (Vitamin B-12) 1,000 mcg PO DAILY 06/25/20 08/23/22 History [Vitamin B-12] Spironolactone 50 mg PO DAILY 06/25/20 08/23/22 History Vitamin E 400 unit PO DAILY 06/25/20 08/23/22 History Brimonidine Tartrate [Alphagan P 1 drop RIGHT EYE BID 11/26/20 08/23/22 History 0.2% Ophth Soln] Glucagon [Gvoke Pfs 1-Pack Syringe] 1 mg SQ ONCE PRN 11/26/20 08/23/22 History Pantoprazole Sodium [Protonix] 40 mg PO DAILY 11/26/20 08/23/22 History busPIRone HCl [Buspar] 5 mg PO BID 02/04/21 08/23/22 History Nystatin 1 applic TOPICAL BID PRN 02/17/21 08/23/22 History Insulin Aspart (For Pump) [NovoLOG 0.01 unit SQ-PUMP CONTINUOUS 03/03/2108/23 History (For Pump)] Rosuvastatin Calcium [Crestor] 5 mg PO HS 08/15/21 08/23/22 History Metoprolol Succinate [Toprol XL] 100 mg PO HS 09/06/21 08/23/22 History Cholecalciferol [Vitamin D3 (25 75 mcg PO DAILY 09/21/21 08/23/22 History Mcg = 1000 Iu)] Promethazine [Phenergan] 25 mg PO BID PRN 09/21/21 08/23/22 History Butalb/APAP/Caff 50-325-40Mg 1 tab PO Q6H PRN 05/25/22 08/23/22 History [Fioricet 50-325-40] Cranberry Fruit Extract [Cranberry] 1,000 mg PO DAILY 05/25/22 08/23/22 History Dorzolamide 2% [Trusopt 2%] 1 drop RIGHT EYE BID 05/25/22 08/23/22 History Magnesium Oxide [Magnesium] 500 mg PO DAILY 05/25/22 08/23/22 History Multivit-Min/Folic Acid/[id number] 1 tab PO DAILY 05/25/22 08/23/22 History [Alive Premium Adult Multivit] Promethazine HCl [Phenergan Syrup] 6.25 mg PO Q6H PRN 05/25/22 08/23/22 History buPROPion HCL [Wellbutrin SR] 200 mg PO DAILY 05/25/22 08/23/22 History hydroCHLOROthiazide [Hydrodiuril] 25 mg PO DAILY 05/25/22 08/23/22 History Hydrocortisone [Cortef] 5 mg PO HS #0 05/30/22 08/23/22 Rx Hydrocortisone [Cortef] 10 mg PO DAILY@1200 #0 05/30/22 08/23/22 Rx Hydrocortisone [Cortef] 15 mg PO DAILY #0 05/30/22 08/23/22 Rx Ondansetron Odt [Zofran ODT] 8 mg PO Q8HR PRN #15 tab 07/04/22 08/23/22 Rx HYDROcodone/APAP 10-325MG [[place] 1 tab PO Q4H PRN 07/17/22 08/23/22 History 10-325] Metoclopramide [Reglan] 5 mg PO TID PRN 07/17/22 08/23/22 History lisinopriL [Zestril] 30 mg PO DAILY 07/17/22 08/23/22 History methocarbamoL [Methocarbamol] 1,000 mg PO Q6H PRN 07/17/22 08/23/22 History Cephalexin [Keflex] 250 mg PO HS #0 07/19/22 08/23/22 Rx Diclofenac Sodium Gel [Voltaren 2 gm TOPICAL QID PRN 08/03/22 08/23/22 History Gel] Allergies Allergy/AdvReac Type Severity Reaction Status Date / Time butorphanol tartrate Allergy BLISTERS Verified 08/23/22 13:39 [From Stadol] IN MOUTH ceftriaxone [From Rocephin] Allergy Unknown Verified 08/23/22 13:39 clarithromycin [From Biaxin] Allergy Rash/Hives Verified 08/23/22 13:39 clindamycin Allergy Unknown Verified 08/23/22 13:39 codeine Allergy Rash/Hives Verified 08/23/22 13:39 ergotamine tartrate Allergy Unknown Verified 08/23/22 13:39 [From Cafergot] erythromycin base Allergy RASH, GI Verified 08/23/22 13:39 [From E-Mycin] SYMPTOMS ketorolac tromethamine Allergy Rash/Hives Verified 08/23/22 13:39 [From Toradol] liraglutide [From Victoza] Allergy Rash/Hives Verified 08/23/22 13:39 morphine Allergy Rash/Hives Verified 08/23/22 13:39 Penicillins Allergy Rash/Hives Verified 08/23/22 13:39 on upper body pentazocine lactate Allergy SEVERE Verified 08/23/22 13:39 [From Talwin] BLISTERS IN MOUTH pregabalin [From Lyrica] Allergy Rash/Hives Verified 08/23/22 13:39 propoxyphene HCl Allergy Rash/Hives Verified 08/23/22 13:39 [From Darvon] Sulfa (Sulfonamide Allergy Rash/Hives Verified 08/23/22 13:39 Antibiotics) tramadol Allergy Unknown Verified 08/23/22 13:39 vancomycin Allergy Swelling Verified 08/24/22 16:06 monosodium glutamate [MSG] AdvReac Nausea & Verified 08/23/22 13:39 Vomiting nalbuphine HCl [From Nubain] AdvReac Nausea & Verified 08/23/22 13:39 Vomiting Physical Exam Vitals: Vital Signs Temp Pulse Pulse Resp BP BP Pulse Ox 08/24/22 14:00 69 18 08/24/22 12:00 98.2 F 69 18 123/63 93 L 08/24/22 08:00 99.3 F 69 18 123/63 93 L 08/24/22 04:00 99 F 98 18 159/78 94 L 08/24/22 02:00 89 18 08/24/22 00:00 98.4 F 89 18 148/83 94 L 08/23/22 21:45 98.7 F 92 18 170/85 98 08/23/22 20:52 92 18 166/87 97 08/23/22 19:03 96 18 150/81 95 Intake and Output 08/24/22 08/24/22 08/24/22 06:59 14:59 22:59 Intake Total 58.918 Output Total 150 Balance -91.082 Intake: Intake, IV Titration 58.918 Amount Heparin Sod,Pork in 0.45% 58.918 NaCl 25,000 unit In 0.45 % NaCl 1 250ml.bag @ 12 UNITS/KG/HR 8.437 mls/hr IV .Q24H [facility] Rx#: [id number] Output: Urine 150 Other: Voiding Method External Catheter External Catheter # Bowel Movements 1 - Exam General: Lying in bed, fatigued ,NAD. Vitals reviewed Eyes: PERRL, EOMI, conjunctiva normal,lips swollen, trachea midline. HENT: normocephalic, mucus membranes moist Neck: supple, no JVD Lungs: normal respiratory effort, no wheezes or rales. CV: Regular rate and rhythm, no murmur. Peripheral pulses 2+. Abdomen: soft, nondistended, right flank tenderness, no organomegaly. No guarding, no rigidity, positive bowel sounds Skin: warm and dry. Neuro: A&Ox3, normal mood and affect normal. Results CBC & Chem 7: 08/23/22 11:30 08/24/22 08:50 Labs: Abnormal Lab Results - Last 24 Hours (Table) 08/23/22 08/23/22 08/23/22 Range/Units 18:09 18:58 21:43 INR 1.2 H (<1.2) APTT 34.7 H (22.0-30.0) sec POC Glucose (mg/dL) 155 H 130 H (70-110) mg/dL Magnesium (1.6-2.3) mg/dL 08/24/22 08/24/22 08/24/22 Range/Units 01:18 06:29 08:50 INR (<1.2) APTT 31.0 H (22.0-30.0) sec POC Glucose (mg/dL) 145 H (70-110) mg/dL Magnesium 1.4 L (1.6-2.3) mg/dL 08/24/22 08/24/22 Range/Units 08:50 11:51 INR (<1.2) APTT 34.3 H (22.0-30.0) sec POC Glucose (mg/dL) 204 H (70-110) mg/dL Magnesium (1.6-2.3) mg/dL Microbiology - Last 24 Hours (Table) 08/23/22 14:30 Urine Culture - Preliminary Urine,Voided Thrombosis Risk Factor Assmnt - Choose All That Apply Other Risk Factors: Yes Each Risk Factor Represents 2 Points: Age 61-74 years Thrombosis Risk Factor Assessment Total Risk Factor Score: 2 Thrombosis Risk Factor Assessment Level: Low Risk Assessment and Plan Assessment: Acute on chronic recurrent UTI, urine culture pending. Anaphylactic reaction to vancomycin, swollen lips, airway stable Elevated troponins, not suggestive of acute coronary syndrome as per cardiology. Suspect related to infection Chronic cervical radiculopathy, improved pain, recent fusion C4 C5 C6, June 2022 Chronic left shoulder pain ,patient reports since OR. Chronic migraines, reports unchanged from prior Covid, June 2021 Diabetes type 2 on insulin pump, hyperglycemic, A1c 8.7 Diabetic peripheral neuropathy CAD Thoracic aortic aneurysm, outpatient monitoring Hypertension Hyperlipidemia Osteoarthritis History of DVT Obstructive sleep apnea on CPAP at home History of nephrolithiasis Isabella's disease /Adrenal insufficiency on hydrocortisone 3 times daily. 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 Plan: Continue on current medication regime ,monitoring and symptomatic treatment. Urine culture finalizing. IV Levaquin. Pain management and antiemetics-Zofran frequency increased to every 6 hours when necessary with Reglan for breakthrough nausea. Patient had anaphylactic reaction to vancomycin last night in the ER, difficulty currently taking oral meds. Confirm vancomycin has been added to patient's ALLERGY list. Adrenal insufficiency- IV Solu- Cortef. Monitoring of blood sugars, insulin ss in place. 2-D echo pending. Prognosis guarded given multiple complex medical issues. The impression and plan of care has been dictated as directed. : I performed a history and examination of this patient, discussed the same with the dictator. I agree with the dictator's note ,documented as a scribe. Any additional findings or plans will be noted.
[2022-08-24 19:55] LABS: Glucose,Whole Blood 161 mg/dL (70-110)
[2022-08-24] MEDS: ATORVASTATIN 10 MG TAB PO SCH (21:18)
[2022-08-24] MEDS: METOCLOPRAMIDE 5 MG TAB PO PRN (21:18)
[2022-08-24] MEDS: METOPROLOL SUCCINATE (ER) 100 MG TAB.ER.24H PO SCH (21:18)
[2022-08-25] MEDS: HYDROCORTISONE SUCCINATE 100 MG/2 ML VIAL IV SCH ×4 (01:23→17:09)
[2022-08-25] MEDS: BRIMONIDINE TARTRATE 0.2% DROPS 5 ML BTL RIGHT EYE SCH ×3 (01:24→20:17)
[2022-08-25] MEDS: HYDROmorphone 1 MG/ML 1 ML SYRINGE IVP PRN ×5 (01:29→20:16)
[2022-08-25 06:10] LABS: Glucose,Whole Blood 203 mg/dL (70-110)
[2022-08-25 06:41] LABS: African American GFR (CKD) >90 (>60 ml/min/1.73 sqM); Anion Gap 14 mmol/L; Blood Urea Nitrogen 10 mg/dL (7-17); Calcium 7.8 mg/dL (8.4-10.2); Carbon Dioxide 18 mmol/L (22-30); Chloride 103 mmol/L (98-107); Glucose 178 mg/dL (74-99); Magnesium 1.9 mg/dL (1.6-2.3); Non-African American GFR(CKD) 80 (>60 ml/min/1.73 sqM); Potassium 4.5 mmol/L (3.5-5.1); Sodium 135 mmol/L (137-145)
[2022-08-25] MEDS: INSULIN ASPART (NovoLOG) 100 UNIT/ML VIAL SQ SCH ×4 (06:55→21:39)
[2022-08-25] MEDS: HYDROmorphone 0.5 MG/0.5 ML SYRINGE IVP PRN (09:06)
--- NOTE | 2022-08-25 10:43 | P.PN ---
Subjective Progress Note Date: 08/25/22 HISTORY OF PRESENT ILLNESS: This is a 71-year-old female with a past medical history significant for hypertension, hyperlipidemia, coronary artery disease with 60% proximal LAD stenosis, valvular heart disease, thoracic aortic aneurysm, and adrenal insufficiency. Patient follows in the office with Dr. Rosenberg. We have been asked to see the patient in consultation for abnormal troponins. Patient examined at the bedside. Patient states she presented to the hospital with a chief com plaint of urinary frequency and burning. She also reports nausea and vomiting. She denied any chest pain or pressure. She denies any shortness of breath. The patient was found to have mildly elevated troponins at 0.048 and 0.051. She was started on IV heparin in the emergency room. The patient's blood pressure this morning is slightly elevated. However she has refused her morning medication secondary to nausea. * EKG reveals sinus mechanism with no signs of acute ischemia * Laboratory data: WBC 7.3. Hemoglobin 13.1. Platelet count 262. Sodium 139. Potassium 3.5. BUN 12. Creatinine 0.74. Troponin 0.048. 0.051. * Current home cardiac medications include lisinopril 30 mg daily, spi ronolactone 50 mg daily, Crestor 5 mg at night, metoprolol succinate 100 mg at night, aspirin 81 mg daily * Most recent echocardiogram obtained in December 2020 revealed ejection fraction 60-65%, trace aortic regurgitation, trace to mild mitral regurgitation, mild tricuspid regurgitation, and borderline pulmonary hypertension. * Cardiac catheterization history: October 2018 revealing intermediate disease i nvolving the proximal LAD with 60% stenosis 08/25/2022 Patient examined this morning at the bedside. Denies chest pain or pressure. Denies SOB. Vital signs are stable. She reports nausea this morning but no vomiting. PHYSICAL EXAM: VITAL SIGNS: Reviewed. GENERAL: Well-developed in no acute distress. HEENT: Head is normocephalic. Pupils are equal, round. Sclerae anicteric. Mucous membranes of the mouth are moist. Neck supple. No JVD or thyromegaly LUNGS: Respirations even and unlabored. Lungs essentially clear to auscultation bilaterally. HEART: Regular rate and rhythm. S1 and S2 heard. ABDOMEN: Soft. Nondistended. Nontender. EXTREMITIES: Normal range of motion. No clubbing or cyanosis. Peripheral pulses intact. No lower extremity edema NEUROLOGIC: Awake and alert. Oriented x 3. ASSESSMENT: Urinary tract infection Chronic nausea Abnormal troponins, flat, not suggestive of acute coronary syndrome Hypertension Hyperlipidemia Coronary artery disease with 60% proximal LAD stenosis, per cardiac catheterization in October 2018 Valvular heart disease Thoracic aortic aneurysm History of renal insufficiency PLAN: 2D echo ordered. Await results. Continue current cardiac medications If no significant abnormalities noted on echocardiogram, we will sign off Further recommendations pending patient's course Nurse practitioner note has been reviewed by physician. Signing provider agrees with the documented findings, assessment, and plan of care. Objective - Vital Signs Vital signs: Vital Signs Temp 98.3 F 08/25/22 08:10 Pulse 65 08/25/22 08:10 Resp 17 08/25/22 08:10 BP 114/49 08/25/22 08:10 Pulse Ox 95 08/25/22 08:10 FiO2 Intake & Output 08/24/22 08/25/22 08/25/22 18:59 06:59 18:59 Intake Total 240 Output Total 500 350 Balance -260 -350 Intake: Oral 240 Output: Urine 500 350 Other: Voiding Method External Catheter External Catheter # Bowel Movements 1 - Labs CBC & Chem 7: 08/23/22 11:30 08/25/22 05:47 Labs: Abnormal Lab Results - Last 24 Hours (Table) 08/24/22 08/24/22 08/24/22 Range/Units 11:51 16:55 19:53 Sodium (137-145) mmol/L Carbon Dioxide (22-30) mmol/L Glucose (74-99) mg/dL POC Glucose (mg/dL) 204 H 123 H 161 H (70-110) mg/dL Calcium (8.4-10.2) mg/dL 08/25/22 08/25/22 Range/Units 05:47 06:08 Sodium 135 L (137-145) mmol/L Carbon Dioxide 18 L (22-30) mmol/L Glucose 178 H (74-99) mg/dL POC Glucose (mg/dL) 203 H (70-110) mg/dL Calcium 7.8 L (8.4-10.2) mg/dL Microbiology - Last 24 Hours (Table) 08/23/22 14:30 Urine Culture - Preliminary Urine,Voided
[2022-08-25 11:33] LABS: Glucose,Whole Blood 175 mg/dL (70-110)
[2022-08-25] MEDS ORDERED: LEVOFLOXACIN 750MG-D5W PMX 750 MG in DEXTROSE/WATER 1 150ML.BAG IVPB SCH (12:00)
[2022-08-25] MEDS: lisinopriL 10 MG TAB PO SCH (12:05)
[2022-08-25] MEDS: SPIRONOLACTONE 25 MG TAB PO SCH (12:19)
[2022-08-25] MEDS: PANTOPRAZOLE 40 MG TABLET PO SCH (12:19)
[2022-08-25] MEDS: GABAPENTIN 100 MG CAP PO SCH ×3 (12:19→20:17)
[2022-08-25] MEDS: hydroCHLOROthiazide 25 MG TAB PO SCH (12:19)
[2022-08-25] MEDS: busPIRone HCl 5 MG TAB PO SCH ×2 (12:20→20:16)
[2022-08-25] MEDS: buPROPion SR 100 MG TABLET.ER PO SCH (12:20)
[2022-08-25] MEDS: DORZOLAMIDE HCL 2% DROPS 10 ML BTL RIGHT EYE SCH ×2 (12:21→20:17)
[2022-08-25] MEDS: CHOLECALCIFEROL 25 MCG (1000 IU) TABLET PO SCH (12:31)
[2022-08-25] MEDS: CYANOCOBALAMIN 500 MCG TAB PO SCH (12:31)
[2022-08-25] MEDS: FERROUS SULFATE 325 MG TAB PO SCH (12:31)
[2022-08-25] MEDS: LACTOBACILLUS ACIDOPH & BULGAR 1 EACH PACKET PO SCH ×2 (12:31→20:17)
[2022-08-25] MEDS: FOLIC ACID 1 MG TAB PO SCH (12:31)
[2022-08-25] MEDS: MAGNESIUM OXIDE 400 MG TAB PO SCH (12:31)
[2022-08-25] MEDS: MULTIVITAMINS, THERA 1 EACH TAB PO SCH (12:31)
[2022-08-25] MEDS: THIAMINE 100 MG TAB PO SCH (12:32)
[2022-08-25] MEDS: VITAMIN E (DL,TOCOPHERYL ACET) 400 UNIT (180 MG) CAP PO SCH (12:32)
[2022-08-25] MEDS: VIT A,C & E-LUTEIN-MINERALS 1 EACH TAB PO SCH (12:32)
[2022-08-25 16:18] LABS: Glucose,Whole Blood 215 mg/dL (70-110)
[2022-08-25] MEDS: ERTAPENEM 1 GM in SODIUM CHLORIDE 0.9% 50 ML IVPB SCH (17:10)
--- NOTE | 2022-08-25 17:25 | CA ---
Transthoracic Echo Report Name: Melissa Pena Age: 71 Gender: F : 1950 Exam Date: 08/24/2022 10:21 Exam Location: [place] [facility] Ht (in): 50 Wt (lb): 155 Ordering Physician: Gini Kwong Attending/Referring Phys: [id number], [employer] Aki Lincoln RDCS Procedure CPT: Indications: LV function, abnormal troponins Cardiac Hx: Technical Quality: Fair Contrast 1: Total Dose (mL): Contrast 2: Total Dose (mL): MEASUREMENTS (Male / Female) Normal Values 2D ECHO LA Volume 89.8 cm??? 18 - 58 / 22 - 52 cm??? M-MODE Aortic Root Diameter MM 3.4 cm LA Systolic Diameter MM 3.7 cm LA Ao Ratio MM 1.1 AV Cusp Separation MM 2.0 cm DOPPLER AV Peak Velocity 212.2 cm/s AV Peak Gradient 18.0 mmHg LVOT Peak Velocity 180.0 cm/s LVOT Peak Gradient 13.0 mmHg MV Area PHT 4.8 cm??? MR Peak Velocity 488.8 cm/s MR Peak Gradient 95.6 mmHg Mitral E Point Velocity 79.2 cm/s Mitral A Point Velocity 86.0 cm/s Mitral E to A Ratio 0.9 MV Deceleration Time 159.4 ms TR Peak Velocity 316.8 cm/s TR Peak Gradient 40.1 mmHg Right Atrial Pressure 8.0 mmHg Pulmonary Artery Systolic Pressu 48.1 mmHg Right Ventricular Systolic Press 48.1 mmHg PV Peak Velocity 96.4 cm/s PV Peak Gradient 3.7 mmHg FINDINGS Left Ventricle Left ventricular cavity size normal. Left ventricular wall thickness normal. Left ventricular ejection fraction is estimated at 60 %. Right Ventricle Normal right ventricular size. Normal right ventricular global systolic function. Moderate pulmonary hypertension. Right Atrium Normal right atrial size. Left Atrium Severely increased left atrial volume. Mitral Valve Moderate mitral regurgitation. Aortic Valve Trileaflet aortic valve. Trace aortic regurgitation. No aortic stenosis. Tricuspid Valve Mild tricuspid regurgitation. Pulmonic Valve Trace pulmonic regurgitation. Pericardium No pleural effusion. Small pericardial effusion. Aorta Normal size aortic root and proximal ascending aorta. CONCLUSIONS Normal LV systolic function Moderate MR Posterior pericardial stripe with trace posterior pericardial effusion Previewed by: Dr. Jewel Jenkins MD (Electronically Signed) Final Date: 25 August 2022 17:25
[2022-08-25] MEDS: ATORVASTATIN 10 MG TAB PO SCH (20:15)
[2022-08-25] MEDS: METOPROLOL SUCCINATE (ER) 100 MG TAB.ER.24H PO SCH (20:17)
[2022-08-25 21:09] LABS: Glucose,Whole Blood 240 mg/dL (70-110)
--- NOTE | 2022-08-25 21:14 | P.PN ---
Subjective Progress Note Date: 08/25/22 She is feeling improved today, started on Invanz yesterday and still complaining of abdominal pain and nausea. She denies fever, chills, chest pain, shortness of breath. Objective - Vital Signs Vital signs: Vital Signs Temp 97.8 F 08/25/22 19:56 Pulse 63 08/25/22 19:56 Resp 18 08/25/22 19:56 BP 141/67 08/25/22 19:56 Pulse Ox 96 08/25/22 19:56 FiO2 Intake & Output 08/25/22 08/25/22 08/26/22 06:59 18:59 06:59 Output Total 350 Balance -350 Output: Urine 350 Other: Voiding Method External Catheter External Catheter # Bowel Movements 1 - Exam Gen: obese, NAD CV: RRR, no murmur Lungs: CTAB Abd: soft, R sided tenderness - Labs CBC & Chem 7: 08/23/22 11:30 08/25/22 05:47 Labs: Abnormal Lab Results - Last 24 Hours (Table) 08/25/22 08/25/22 08/25/22 Range/Units 05:47 06:08 11:31 Sodium 135 L (137-145) mmol/L Carbon Dioxide 18 L (22-30) mmol/L Glucose 178 H (74-99) mg/dL POC Glucose (mg/dL) 203 H 175 H (70-110) mg/dL Calcium 7.8 L (8.4-10.2) mg/dL 08/25/22 08/25/22 Range/Units 16:14 21:08 Sodium (137-145) mmol/L Carbon Dioxide (22-30) mmol/L Glucose (74-99) mg/dL POC Glucose (mg/dL) 215 H 240 H (70-110) mg/dL Calcium (8.4-10.2) mg/dL Microbiology - Last 24 Hours (Table) 08/23/22 14:30 Urine Culture - Preliminary Urine,Voided Gram Neg Bacilli Assessment and Plan Plan: Continue with IV invanz, multiple antibiotic allergies, ID consulted. Await urine culture to finalize. Cardiology following
--- NOTE | 2022-08-25 22:00 | P.CONS ---
History of Present Illness - Reason for Consult Consult date: 08/25/22 UTI and multiple antibiotic ALLERGIES Requesting physician: Andrew Gonsales - Chief Complaint Not feeling well shortness of breath X few days - History of Present Illness Patient is a 71-year-old female with a past medical history significant for recurrent urinary tract infection diabetes mellitus hypertension hyperlipidemia DVT and osteoarthritis presented to the hospital 2 days ago for evaluation of nausea vomiting and also complaining of suprapubic and flank pain for the last few days which is more of a dull aching 5-6 out of 10 no radiation and the patient did have a burning of urine patient also complaining of some chest pain with the center the patient was brought into the ER on arrival to the ER the patient was afebrile and no fever have been recorded subsequently patient did have a normal white count kidney function has been normal liver enzymes are normal troponins are elevated patient did have a positive UA stool for C. difficile was negative patient did have multiple antibiotic allergies patient was started on Invanz infectious disease was consulted for further management of antibiotic therapy Review of Systems Positive point has been mentioned in the HPI rest of the systems are negative Past Medical History Past Medical History: Diabetes Mellitus, Deep Vein Thrombosis (DVT), Fibromyalgia, Hyperlipidemia, Hypertension, Osteoarthritis (OA), Pneumonia, Renal Disease, Sleep Apnea/CPAP/BIPAP, Vascular Disorder Additional Past Medical History / Comment(s): Pt recently admitted to [facility] with R flank pain. 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, DVT R calf in 1976, cardiac murmur, occipital neuraligia, balance issues-has narrowing of vessels "in the back of my head", vertigo, varicosities, states rt shoulder torn rotator cuff History of Any Multi-Drug Resistant Organisms: ESBL, MRSA, VRE Year Discovered:: 11/25/20 ESBL;12/06/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; 03/10/11 MRSA MDRO Source:: Urine ESBL; Urine-VRE: MRSA 4th Right TOE Past Surgical History: Appendectomy, Back Surgery, Bladder Surgery, Breast Surgery, Cholecystectomy, Heart Catheterization, Hysterectomy, Orthopedic Surgery, Tonsillectomy Additional Past Surgical History / Comment(s): Lumbar fusions, bladder suspension, occipital nerve blocks, 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, R wrist/elbow nerve repair, bone removed R shoulder, 4th toe R foot partial amputation, bilateral feet/bunionectomies, R knee arthroscopies, R orbit decompression with ethmoidectomy and eyelid lift, EGD, colonoscopies, cystocopies, lithotripsy/stents, bilateral breast reduction, bilateral cataract removals, parathyroid surgery - April 2019, pain clinic procedures Past Anesthesia/Blood Transfusion Reactions: No Reported Reaction Additional Past Anesthesia/Blood Transfusion Reaction / Comm: never recieved blood Past Psychological History: Depression Additional Psychological History / Comment(s): Pt resides with her spouse. She uses a walker. She normally drives. She has a nebulizer, cpap, bsc, shower chair, bp machine, dexcom monitor system for her BG and insulin pump. Smoking Status: Never smoker Past Alcohol Use History: Occasional Additional Past Alcohol Use History / Comment(s): no alcohol Past Drug Use History: None Reported - Past Family History Father Family Medical History: Coronary Artery Disease (CAD), CVA/TIA, Diabetes Mellitus, Myocardial Infarction ([place]), Pneumonia Additional Family Medical History / Comment(s): Father at the age of 78yrs from [place] and pneumonia. Mother Family Medical History: Cancer, Congestive Heart Failure (CHF) Additional Family Medical History / Comment(s): Mother had uterine cancer. She recently at the age of 96yrs old from shingles. Medications and Allergies Home Medications Medication Instructions Recorded Confirmed Type Meclizine [Antivert] 25 mg PO QID PRN 11/26/17 08/23/22 History Aspirin 81 mg PO DAILY #0 07/02/18 08/23/22 Rx Ferrous Sulfate [Iron (65 MG 325 mg PO DAILY 10/08/18 08/23/22 History Elemental)] Folic Acid 0.4 mg PO DAILY 10/08/18 08/23/22 History L.acidoph,Paracasei, B.lactis 2 cap PO BID 10/08/18 08/23/22 History [Probiotic] Melatonin 5 mg PO HS PRN 10/08/18 08/23/22 History Potassium 99 mg PO DAILY 10/08/18 08/23/22 History Thiamine [Vitamin B-1] 100 mg PO DAILY 10/08/18 08/23/22 History Vitamin B-Complex Drops 1 drop PO BID 10/08/18 08/23/22 History Gabapentin [Neurontin] 100 mg PO TID #9 cap 03/24/20 08/23/22 Rx C,E,Zinc,Copper 11/Ogaix8i/Lut 1 cap PO DAILY 06/25/20 08/23/22 History [Ocuvite Adult 50 Plus Softgel] Cyanocobalamin (Vitamin B-12) 1,000 mcg PO DAILY 06/25/20 08/23/22 History [Vitamin B-12] Spironolactone 50 mg PO DAILY 06/25/20 08/23/22 History Vitamin E 400 unit PO DAILY 06/25/20 08/23/22 History Brimonidine Tartrate [Alphagan P 1 drop RIGHT EYE BID 11/26/20 08/23/22 History 0.2% Ophth Soln] Glucagon [Gvoke Pfs 1-Pack Syringe] 1 mg SQ ONCE PRN 11/26/20 08/23/22 History Pantoprazole Sodium [Protonix] 40 mg PO DAILY 11/26/20 08/23/22 History busPIRone HCl [Buspar] 5 mg PO BID 02/04/21 08/23/22 History Nystatin 1 applic TOPICAL BID PRN 02/17/21 08/23/22 History Insulin Aspart (For Pump) [NovoLOG 0.01 unit SQ-PUMP CONTINUOUS 03/03/21 08/23/22 History (For Pump)] Rosuvastatin Calcium [Crestor] 5 mg PO HS 08/15/21 08/23/22 History Cholecalciferol [Vitamin D3 (25 75 mcg PO DAILY 09/21/21 08/23/22 History Mcg = 1000 Iu)] Butalb/APAP/Caff 50-325-40Mg 1 tab PO Q6H PRN 05/25/22 08/23/22 History [Fioricet 50-325-40] Cranberry Fruit Extract [Cranberry] 1,000 mg PO DAILY 05/25/22 08/23/22 History Dorzolamide 2% [Trusopt 2%] 1 drop RIGHT EYE BID 05/25/22 08/23/22 History Magnesium Oxide [Magnesium] 500 mg PO DAILY 05/25/22 08/23/22 History Multivit-Min/Folic Acid/[id number] 1 tab PO DAILY 05/25/22 08/23/22 History [Alive Premium Adult Multivit] Promethazine HCl [Phenergan Syrup] 6.25 mg PO Q6H PRN 05/25/22 08/23/22 History buPROPion HCL [Wellbutrin SR] 200 mg PO DAILY 05/25/22 08/23/22 History hydroCHLOROthiazide [Hydrodiuril] 25 mg PO DAILY 05/25/22 08/23/22 History Hydrocortisone [Cortef] 5 mg PO HS #0 05/30/22 08/23/22 Rx Hydrocortisone [Cortef] 10 mg PO DAILY@1200 #0 05/30/22 08/23/22 Rx Hydrocortisone [Cortef] 15 mg PO DAILY #0 05/30/22 08/23/22 Rx Ondansetron Odt [Zofran ODT] 8 mg PO Q8HR PRN #15 tab 07/04/22 08/23/22 Rx Metoclopramide [Reglan] 5 mg PO TID PRN 07/17/22 08/23/22 History lisinopriL [Zestril] 30 mg PO DAILY 07/17/22 08/23/22 History methocarbamoL [Methocarbamol] 1,000 mg PO Q6H PRN 07/17/22 08/23/22 History Diclofenac Sodium Gel [Voltaren 2 gm TOPICAL QID PRN 08/03/22 08/23/22 History Gel] Metoprolol Succinate (ER) [Toprol 50 mg PO HS #30 tab 08/29/22 Rx XL] Promethazine [Phenergan] 25 mg PO BID PRN #30 tab 08/29/22 Rx Cephalexin [Keflex] 250 mg PO HS #0 08/30/22 08/23/22 Rx Ciprofloxacin HCl [Cipro] 500 mg PO BID 4 Days #7 tab 08/30/22 Rx HYDROcodone/APAP 10-325MG [[employer] 1 tab PO Q4H PRN #12 tab 08/30/22 Rx 10-325] Allergies Allergy/AdvReac Type Severity Reaction Status Date / Time butorphanol tartrate Allergy BLISTERS Verified 08/23/22 13:39 [From Stadol] IN MOUTH ceftriaxone [From Rocephin] Allergy Unknown Verified 08/23/22 13:39 clarithromycin [From Biaxin] Allergy Rash/Hives Verified 08/23/22 13:39 clindamycin Allergy Unknown Verified 08/23/22 13:39 codeine Allergy Rash/Hives Verified 08/23/22 13:39 ergotamine tartrate Allergy Unknown Verified 08/23/22 13:39 [From Cafergot] erythromycin base Allergy RASH, GI Verified 08/23/22 13:39 [From E-Mycin] SYMPTOMS ketorolac tromethamine Allergy Rash/Hives Verified 08/23/22 13:39 [From Toradol] liraglutide [From Victoza] Allergy Rash/Hives Verified 08/23/22 13:39 morphine Allergy Rash/Hives Verified 08/23/22 13:39 Penicillins Allergy Rash/Hives Verified 08/23/22 13:39 on upper body pentazocine lactate Allergy SEVERE Verified 08/23/22 13:39 [From Talwin] BLISTERS IN MOUTH pregabalin [From Lyrica] Allergy Rash/Hives Verified 08/23/22 13:39 propoxyphene HCl Allergy Rash/Hives Verified 08/23/22 13:39 [From Darvon] Sulfa (Sulfonamide Allergy Rash/Hives Verified 08/23/22 13:39 Antibiotics) tramadol Allergy Unknown Verified 08/23/22 13:39 vancomycin Allergy Swelling Verified 08/24/22 16:06 monosodium glutamate [MSG] AdvReac Nausea & Verified 08/23/22 13:39 Vomiting nalbuphine HCl [From Nubain] AdvReac Nausea & Verified 08/23/22 13:39 Vomiting Physical Exam Vitals: Vital Signs Temp Pulse Resp BP Pulse Ox 08/25/22 08:10 98.3 F 65 17 114/49 95 08/25/22 04:00 97.8 F 58 L 18 108/55 94 L 08/25/22 02:00 68 16 08/25/22 00:00 98 F 68 16 139/69 97 08/24/22 20:15 98.2 F 72 16 142/70 96 08/24/22 16:00 97.3 F L 65 16 130/69 95 08/24/22 14:00 69 18 08/24/22 12:00 98.2 F 69 18 123/63 93 L Intake and Output 08/24/22 08/25/22 08/25/22 22:59 06:59 14:59 Intake Total 240 Output Total 500 350 Balance -260 -350 Intake: Oral 240 Output: Urine 500 350 Other: Voiding Method External Catheter External Catheter # Bowel Movements 1 GENERAL DESCRIPTION: Elderly female lying in bed, no distress. No tachypnea or accessory muscle of respiration use. HEENT: Shows Pallor , no scleral icterus. Oral mucous membrane is dry. No pharyngeal erythema or thrush NECK: Trachea central, no thyromegaly. LUNGS: Unlabored breathing. Clear to auscultation anteriorly. No wheeze or crackle. HEART: S1, S2, regular rate and rhythm. No loud murmur ABDOMEN: Soft, no tenderness , guarding or rigidity, no organomegaly EXTREMITIES: No edema of feet. SKIN: No rash, no masses palpable. NEUROLOGICAL: The patient is awake, alert, oriented x3, mood and affect normal. Results CBC & Chem 7: 08/23/22 11:30 08/26/22 06:02 Labs: Abnormal Lab Results - Last 24 Hours (Table) 08/24/22 08/24/22 08/24/22 Range/Units 11:51 16:55 19:53 Sodium (137-145) mmol/L Carbon Dioxide (22-30) mmol/L Glucose (74-99) mg/dL POC Glucose (mg/dL) 204 H 123 H 161 H (70-110) mg/dL Calcium (8.4-10.2) mg/dL 08/25/22 08/25/22 Range/Units 05:47 06:08 Sodium 135 L (137-145) mmol/L Carbon Dioxide 18 L (22-30) mmol/L Glucose 178 H (74-99) mg/dL POC Glucose (mg/dL) 203 H (70-110) mg/dL Calcium 7.8 L (8.4-10.2) mg/dL Microbiology - Last 24 Hours (Table) 08/23/22 14:30 Urine Culture - Preliminary Urine,Voided Assessment and Plan (1) Allergy to multiple antibiotics Current Visit: Yes Status: Acute Code(s): Z88.1 - ALLERGY STATUS TO OTHER ANTIBIOTIC AGENTS SNOMED Code(s): 110997191 (2) UTI (urinary tract infection) Current Visit: Yes Status: Acute Code(s): N39.0 - URINARY TRACT INFECTION, SITE NOT SPECIFIED SNOMED Code(s): 88742179 Plan: 1patient presented to hospital with acute nausea vomiting and the patient also having urinary symptoms did have a positive UA and history of recurrent UTI likely symptomatic urinary tract infection from enteric gram-negative pathogen. 2patient with multiple antibiotic allergies that would limit the number of antibiotics safe to use 3patient to continue the Invanz while waiting for the culture to finalize We will follow on clinical condition and cultures to further adjust medication if needed Thank you for this consultation we will follow the patient along with you Time with Patient: Greater than 30
[2022-08-26] MEDS: HYDROCORTISONE SUCCINATE 100 MG/2 ML VIAL IV SCH ×4 (00:57→17:17)
[2022-08-26] MEDS: HYDROmorphone 1 MG/ML 1 ML SYRINGE IVP PRN ×6 (00:57→20:01)
[2022-08-26 06:15] LABS: Glucose,Whole Blood 260 mg/dL (70-110)
[2022-08-26] MEDS: INSULIN ASPART (NovoLOG) 100 UNIT/ML VIAL SQ SCH ×4 (06:53→20:30)
[2022-08-26] MEDS: SPIRONOLACTONE 25 MG TAB PO SCH (08:47)
[2022-08-26] MEDS: busPIRone HCl 5 MG TAB PO SCH ×2 (08:47→20:00)
[2022-08-26] MEDS: GABAPENTIN 100 MG CAP PO SCH ×3 (08:47→20:01)
[2022-08-26] MEDS: hydroCHLOROthiazide 25 MG TAB PO SCH (08:47)
[2022-08-26] MEDS: buPROPion SR 100 MG TABLET.ER PO SCH (08:53)
[2022-08-26] MEDS: lisinopriL 10 MG TAB PO SCH (08:53)
[2022-08-26] MEDS: PANTOPRAZOLE 40 MG TABLET PO SCH (08:53)
[2022-08-26] MEDS: BRIMONIDINE TARTRATE 0.2% DROPS 5 ML BTL RIGHT EYE SCH ×2 (08:54→19:59)
[2022-08-26] MEDS: DORZOLAMIDE HCL 2% DROPS 10 ML BTL RIGHT EYE SCH ×2 (08:54→20:00)
--- NOTE | 2022-08-26 10:51 | P.PN ---
Subjective Progress Note Date: 08/26/22 HISTORY OF PRESENT ILLNESS: This is a 71-year-old female with a past medical history significant for hypertension, hyperlipidemia, coronary artery disease with 60% proximal LAD stenosis, valvular heart disease, thoracic aortic aneurysm, and adrenal insufficiency. Patient follows in the office with Dr. Rosenberg. We have been asked to see the patient in consultation for abnormal troponins. Patient examined at the bedside. Patient states she presented to the hospital with a chief com plaint of urinary frequency and burning. She also reports nausea and vomiting. She denied any chest pain or pressure. She denies any shortness of breath. The patient was found to have mildly elevated troponins at 0.048 and 0.051. She was started on IV heparin in the emergency room. The patient's blood pressure this morning is slightly elevated. However she has refused her morning medication secondary to nausea. * EKG reveals sinus mechanism with no signs of acute ischemia * Laboratory data: WBC 7.3. Hemoglobin 13.1. Platelet count 262. Sodium 139. Potassium 3.5. BUN 12. Creatinine 0.74. Troponin 0.048. 0.051. * Current home cardiac medications include lisinopril 30 mg daily, spi ronolactone 50 mg daily, Crestor 5 mg at night, metoprolol succinate 100 mg at night, aspirin 81 mg daily * Most recent echocardiogram obtained in December 2020 revealed ejection fraction 60-65%, trace aortic regurgitation, trace to mild mitral regurgitation, mild tricuspid regurgitation, and borderline pulmonary hypertension. * Cardiac catheterization history: October 2018 revealing intermediate disease i nvolving the proximal LAD with 60% stenosis 08/25/2022 Patient examined this morning at the bedside. Denies chest pain or pressure. Denies SOB. Vital signs are stable. She reports nausea this morning but no vomiting. 09/15/2022 Patient examined this morning at the bedside. Patient denies chest pain or pressure. She denies shortness of breath. Vital signs are stable. Echocar diogram completed revealing ejection fraction 60%. PHYSICAL EXAM: VITAL SIGNS: Reviewed. GENERAL: Well-developed in no acute distress. HEENT: Head is normocephalic. Pupils are equal, round. Sclerae anicteric. Mucous membranes of the mouth are moist. Neck supple. No JVD or thyromegaly LUNGS: Respirations even and unlabored. Lungs essentially clear to auscultation bilaterally. HEART: Regular rate and rhythm. S1 and S2 heard. ABDOMEN: Soft. Nondistended. Nontender. EXTREMITIES: Normal range of motion. No clubbing or cyanosis. Peripheral pulses intact. No lower extremity edema NEUROLOGIC: Awake and alert. Oriented x 3. ASSESSMENT: Urinary tract infection Chronic nausea Abnormal troponins, flat, not suggestive of acute coronary syndrome Hypertension Hyperlipidemia Coronary artery disease with 60% proximal LAD stenosis, per cardiac catheteriz ation in October 2018 Valvular heart disease Thoracic aortic aneurysm History of renal insufficiency PLAN: Continue current cardiac medications Patient is stable from a cardiac standpoint with no further inpatient recommendations We will sign off. Please reconsult if needed. Nurse practitioner note has been reviewed by physician. Signing provider agrees with the documented findings, assessment, and plan of care. Objective - Vital Signs Vital signs: Vital Signs Temp 97.5 F L 08/26/22 08:00 Pulse 61 08/26/22 08:00 Resp 17 08/26/22 08:00 BP 138/65 08/26/22 08:00 Pulse Ox 97 08/26/22 08:00 FiO2 Intake & Output 08/25/22 08/26/22 08/26/22 18:59 06:59 18:59 Intake Total 200 0 Output Total 200 Balance 0 0 Intake: Oral 200 0 Output: Urine 200 Other: Voiding Method External Catheter External Catheter # Voids 1 - Labs CBC & Chem 7: 08/23/22 11:30 08/26/22 06:02 Labs: Abnormal Lab Results - Last 24 Hours (Table) 08/25/22 08/25/22 08/25/22 Range/Units 11:31 16:14 21:08 POC Glucose (mg/dL) 175 H 215 H 240 H (70-110) mg/dL 08/26/22 Range/Units 06:13 POC Glucose (mg/dL) 260 H (70-110) mg/dL Microbiology - Last 24 Hours (Table) 08/23/22 14:30 Urine Culture - Final Urine,Voided Klebsiella pneumoniae Enterobacter cloacae
[2022-08-26 11:42] LABS: Glucose,Whole Blood 232 mg/dL (70-110)
[2022-08-26] MEDS: LACTOBACILLUS ACIDOPH & BULGAR 1 EACH PACKET PO SCH ×2 (12:08→20:00)
--- NOTE | 2022-08-26 13:07 | P.PN ---
Subjective Progress Note Date: 08/26/22 Principal diagnosis: UTIs and multiple antibiotic ALLERGIES Patient is a 71-year-old female with a past medical history significant for recurrent urinary tract infection diabetes mellitus hypertension hyperlipidemia DVT and osteoarthritis presented to the hospital for evaluation of nausea vomiting and also complaining of suprapubic pain did have a positive concerning for symptomatic urinary tract infection. On today's evaluation that is 08/26/2022, the patient denies having any fever or any chills, the patient feeling slightly better no chest pain shortness of myriam ath or cough no further nausea vomiting or diarrhea Objective - Vital Signs Vital signs: Vital Signs Temp 97.5 F L 08/26/22 08:00 Pulse 61 08/26/22 08:00 Resp 17 08/26/22 08:00 BP 138/65 08/26/22 08:00 Pulse Ox 97 08/26/22 08:00 FiO2 Intake & Output 08/25/22 08/26/22 08/26/22 18:59 06:59 18:59 Intake Total 200 0 Output Total 200 Balance 0 0 Intake: Oral 200 0 Output: Urine 200 Other: Voiding Method External Catheter External Catheter External Catheter # Voids 1 - Exam GENERAL DESCRIPTION: An elderly female lying in bed in no distress RESPIRATORY SYSTEM: Unlabored breathing , decreased breath sounds at bases HEART: S1 S2 regular rate and rhythm , ABDOMEN: Soft , no tenderness EXTREMITIES: No edema feet - Labs CBC & Chem 7: 08/23/22 11:30 08/26/22 06:02 Labs: Abnormal Lab Results - Last 24 Hours (Table) 08/25/22 08/25/22 08/25/22 Range/Units 11:31 16:14 21:08 POC Glucose (mg/dL) 175 H 215 H 240 H (70-110) mg/dL 08/26/22 Range/Units 06:13 POC Glucose (mg/dL) 260 H (70-110) mg/dL Microbiology - Last 24 Hours (Table) 08/23/22 14:30 Urine Culture - Final Urine,Voided Klebsiella pneumoniae Enterobacter cloacae Assessment and Plan (1) UTI (urinary tract infection) Current Visit: Yes Status: Acute Code(s): N39.0 - URINARY TRACT INFECTION, SITE NOT SPECIFIED SNOMED Code(s): 67441805 Plan: 1patient presented to hospital with acute nausea vomiting and the patient also having urinary symptoms did have a positive UA and history of recurrent UTI likely symptomatic urinary tract infection from enteric gram-negative pathogen. 2patient with multiple antibiotic allergies that would limit the number of antibiotics safe to use 3patient Seemed to show some clinical improvement and will continue the Invanz because of her multiple ALLERGIES Time with Patient: Less than 30
--- NOTE | 2022-08-26 13:48 | P.PN ---
Subjective Progress Note Date: 08/26/22 She is feeling better today, no longer having any chills and abdominal pain improving. Culture showing klebsiella and enterobacter with some resistance. Objective - Vital Signs Vital signs: Vital Signs Temp 97.5 F L 08/26/22 08:00 Pulse 61 08/26/22 08:00 Resp 17 08/26/22 08:00 BP 138/65 08/26/22 08:00 Pulse Ox 97 08/26/22 08:00 FiO2 Intake & Output 08/25/22 08/26/22 08/26/22 18:59 06:59 18:59 Intake Total 200 118 Output Total 200 Balance 0 118 Intake: Oral 200 118 Output: Urine 200 Other: Voiding Method External Catheter External Catheter External Catheter # Voids 1 - Exam Gen: obese, NAD CV: RRR, no murmur Lungs: CTAB Abd: soft, R sided tenderness - Labs CBC & Chem 7: 08/23/22 11:30 08/26/22 06:02 Labs: Abnormal Lab Results - Last 24 Hours (Table) 08/25/22 08/25/22 08/26/22 Range/Units 16:14 21:08 06:13 POC Glucose (mg/dL) 215 H 240 H 260 H (70-110) mg/dL 08/26/22 Range/Units 11:40 POC Glucose (mg/dL) 232 H (70-110) mg/dL Microbiology - Last 24 Hours (Table) 08/23/22 14:30 Urine Culture - Final Urine,Voided Klebsiella pneumoniae Enterobacter cloacae Assessment and Plan Plan: Continue with IV invanz, multiple antibiotic allergies, ID following. Pt off heparin and cardiology signed off. Will complete invanz course in the hospital and discharge planning in progress
[2022-08-26] MEDS: FOLIC ACID 1 MG TAB PO SCH (14:42)
[2022-08-26] MEDS: CHOLECALCIFEROL 25 MCG (1000 IU) TABLET PO SCH (14:42)
[2022-08-26] MEDS: VIT A,C & E-LUTEIN-MINERALS 1 EACH TAB PO SCH (14:42)
[2022-08-26] MEDS: CYANOCOBALAMIN 500 MCG TAB PO SCH (14:42)
[2022-08-26] MEDS: FERROUS SULFATE 325 MG TAB PO SCH (14:42)
[2022-08-26] MEDS: THIAMINE 100 MG TAB PO SCH (14:42)
[2022-08-26] MEDS: VITAMIN E (DL,TOCOPHERYL ACET) 400 UNIT (180 MG) CAP PO SCH (14:42)
[2022-08-26] MEDS: MULTIVITAMINS, THERA 1 EACH TAB PO SCH (14:42)
[2022-08-26] MEDS: MAGNESIUM OXIDE 400 MG TAB PO SCH (14:42)
[2022-08-26] MEDS: ERTAPENEM 1 GM in SODIUM CHLORIDE 0.9% 50 ML IVPB SCH (16:10)
[2022-08-26 16:33] LABS: Glucose,Whole Blood 326 mg/dL (70-110)
[2022-08-26] MEDS: METOPROLOL SUCCINATE (ER) 100 MG TAB.ER.24H PO SCH (20:00)
[2022-08-26] MEDS: ATORVASTATIN 10 MG TAB PO SCH (20:01)
[2022-08-26 20:15] LABS: Glucose,Whole Blood 244 mg/dL (70-110)
[2022-08-27] MEDS: HYDROCORTISONE SUCCINATE 100 MG/2 ML VIAL IV SCH ×3 (00:49→20:22)
[2022-08-27] MEDS: HYDROmorphone 0.5 MG/0.5 ML SYRINGE IVP PRN ×2 (00:50→04:18)
[2022-08-27 06:23] LABS: Glucose,Whole Blood 278 mg/dL (70-110)
[2022-08-27] MEDS: INSULIN ASPART (NovoLOG) 100 UNIT/ML VIAL SQ SCH ×5 (06:45→21:44)
[2022-08-27] MEDS: HYDROmorphone 1 MG/ML 1 ML SYRINGE IVP PRN ×5 (08:00→20:23)
[2022-08-27] MEDS: THIAMINE 100 MG TAB PO SCH (08:01)
[2022-08-27] MEDS: CYANOCOBALAMIN 500 MCG TAB PO SCH ×2 (08:01→13:20)
[2022-08-27] MEDS: MULTIVITAMINS, THERA 1 EACH TAB PO SCH ×2 (08:01→13:20)
[2022-08-27] MEDS: busPIRone HCl 5 MG TAB PO SCH ×2 (08:01→20:20)
[2022-08-27] MEDS: PANTOPRAZOLE 40 MG TABLET PO SCH (08:01)
[2022-08-27] MEDS: VITAMIN E (DL,TOCOPHERYL ACET) 400 UNIT (180 MG) CAP PO SCH (08:01)
[2022-08-27] MEDS: FERROUS SULFATE 325 MG TAB PO SCH ×2 (08:01→13:20)
[2022-08-27] MEDS: lisinopriL 10 MG TAB PO SCH (08:01)
[2022-08-27] MEDS: GABAPENTIN 100 MG CAP PO SCH ×3 (08:01→20:20)
[2022-08-27] MEDS: hydroCHLOROthiazide 25 MG TAB PO SCH (08:01)
[2022-08-27] MEDS: MAGNESIUM OXIDE 400 MG TAB PO SCH (08:01)
[2022-08-27] MEDS: FOLIC ACID 1 MG TAB PO SCH ×2 (08:01→13:20)
[2022-08-27] MEDS: LACTOBACILLUS ACIDOPH & BULGAR 1 EACH PACKET PO SCH ×3 (08:02→20:21)
[2022-08-27] MEDS: CHOLECALCIFEROL 25 MCG (1000 IU) TABLET PO SCH ×2 (08:02→13:20)
[2022-08-27] MEDS: buPROPion SR 100 MG TABLET.ER PO SCH (08:02)
[2022-08-27] MEDS: SPIRONOLACTONE 25 MG TAB PO SCH (08:02)
[2022-08-27] MEDS: VIT A,C & E-LUTEIN-MINERALS 1 EACH TAB PO SCH (08:02)
[2022-08-27] MEDS: BRIMONIDINE TARTRATE 0.2% DROPS 5 ML BTL RIGHT EYE SCH ×2 (08:08→20:21)
[2022-08-27] MEDS: DORZOLAMIDE HCL 2% DROPS 10 ML BTL RIGHT EYE SCH ×2 (08:09→20:22)
--- NOTE | 2022-08-27 10:28 | P.PN ---
Subjective Progress Note Date: 08/27/22 Principal diagnosis: UTIs and multiple antibiotic ALLERGIES Patient is a 71-year-old female with a past medical history significant for recurrent urinary tract infection diabetes mellitus hypertension hyperlipidemia DVT and osteoarthritis presented to the hospital for evaluation of nausea vomiting and also complaining of suprapubic pain did have a positive concerning for symptomatic urinary tract infection. On today's evaluation that is 08/27/2022, the patient remains to be afebrile, the patient did mention some nausea last night and did not eat dinner or breakfast this morning, and denies any chest pain shortness of breath or cough and no diarrhea Objective - Vital Signs Vital signs: Vital Signs Temp 97.5 F L 08/27/22 08:00 Pulse 63 08/27/22 08:00 Resp 16 08/27/22 08:00 BP 189/87 08/27/22 08:00 Pulse Ox 95 08/27/22 08:00 FiO2 Intake & Output 08/26/22 08/27/22 08/27/22 18:59 06:59 18:59 Intake Total 878 Output Total 150 Balance 878 -150 Intake: Oral 878 Output: Urine 150 Other: Voiding Method External Catheter External Catheter # Voids 1 # Bowel Movements 1 - Exam GENERAL DESCRIPTION: An elderly female lying in bed in no distress RESPIRATORY SYSTEM: Unlabored breathing , decreased breath sounds at bases HEART: S1 S2 regular rate and rhythm , ABDOMEN: Soft , no tenderness EXTREMITIES: No edema feet - Labs CBC & Chem 7: 08/23/22 11:30 08/26/22 06:02 Labs: Abnormal Lab Results - Last 24 Hours (Table) 08/26/22 08/26/22 08/26/22 Range/Units 11:40 16:32 20:14 POC Glucose (mg/dL) 232 H 326 H 244 H (70-110) mg/dL 08/27/22 Range/Units 06:21 POC Glucose (mg/dL) 278 H (70-110) mg/dL Microbiology - Last 24 Hours (Table) 08/23/22 14:30 Urine Culture - Final Urine,Voided Klebsiella pneumoniae Enterobacter cloacae Assessment and Plan (1) UTI (urinary tract infection) Current Visit: Yes Status: Acute Code(s): N39.0 - URINARY TRACT INFECTION, SITE NOT SPECIFIED SNOMED Code(s): 59944318 Plan: 1patient presented to hospital with acute nausea vomiting and the patient also having urinary symptoms did have a positive UA and history of recurrent UTI likely symptomatic urinary tract infection from enteric gram-negative pathogen. 2patient with multiple antibiotic allergies that would limit the number of antibiotics safe to use 3patient has shown some clinical improvement , currently on Invanz because of her multiple ALLERGIES, however both pathogens are sensitive to Cipro we will switch over to Cipro and see clinical response Time with Patient: Less than 30
[2022-08-27] MEDS: CIPROFLOXACIN HCL 500 MG TAB PO SCH ×2 (11:22→21:45)
[2022-08-27 12:16] LABS: Glucose,Whole Blood 232 mg/dL (70-110)
[2022-08-27] MEDS: METOCLOPRAMIDE 5 MG TAB PO PRN (12:27)
[2022-08-27] MEDS ORDERED: MECLIZINE 25 MG TAB PO PRN (16:06)
[2022-08-27] MEDS ORDERED: PROMETHAZINE 25 MG TAB PO PRN (16:06)
--- NOTE | 2022-08-27 16:17 | P.PN ---
Subjective Progress Note Date: 08/27/22 This is a pleasant 71-year-old female who is being monitored for acute UTI. Patient's urine culture has finalized and is showing Klebsiella pneumonia with Enterobacter cloacae and patient has been transitioned from IV ertapenem to oral ciprofloxacin. Patient will be monitored overnight on oral Cipro likely will discharge home tomorrow. Additionally patient's blood pressure has been elevated in the 180s systolic and for this reason IV Solu-Cortef has been weaned to 25 mg twice a day. Blood sugars alternating the 200s and this is expected to improve with a decrease in steroids as well as adding meal time insulin. Patient does have insulin pump. Patient continues with intermittent episodes of nausea likely related to antibiotics and continues on zofran, reglan and prn phenergan has been added. Review of Systems Constitutional: Denied any fatigue denied any fever. Cardio vascular: denied any chest pain, palpitations Gastrointestinal: Reports nausea, no vomiting, no diarrhea Pulmonary: Denied any shortness of breath cough Neurologic denied any new focal deficits All inpatient medications were reviewed and appropriate changes in these medications as dictated in the interval history and assessment and plan. PHYSICAL EXAMINATION: GENERAL: The patient is alert and oriented x3, not in any acute distress. Well developed, well nourished. HEENT: Pupils are round and equally reacting to light. EOMI. No scleral icterus. No conjunctival pallor. Normocephalic, atraumatic. No pharyngeal erythema. No thyromegaly. CARDIOVASCULAR: S1 and S2 present. No murmurs, rubs, or gallops. PULMONARY: Chest is clear to auscultation, no wheezing or crackles. ABDOMEN: Soft, nontender, nondistended, normoactive bowel sounds. No palpable organomegaly. MUSCULOSKELETAL: No joint swelling or deformity. EXTREMITIES: No cyanosis, clubbing, or pedal edema. NEUROLOGICAL: Gross neurological examination did not reveal any focal deficits. SKIN: No rashes. Assessment and plan Assessment Troponin leak possibly related to infection, ACS has been ruled out and cardiology has signed off Acute urinary tract infection, present on admission with urine culture showing klebsiella and enterobacter with resistance and patient received IV ertapenem and has been transitioned to oral cipro. Chronic nausea with intractible nausea likely from antibiotics Chronic UTI Hypertension Diabetes Mellitus type 2 Steroid inducted hyperglycemia Chronic adrenal insufficiency maintained on oral cortef History hyperlipidemia Coronary artery disease with prior PCI and 60% proximal LAD stenosis Valvular heart disease Thoracic aortic aneurysm History of renal insufficiency Diabetic peripheral neuropathy History of occipital neuralgia/fibromyalgia History DVT Obstructive sleep apnea uses CPAP Depression GI prophylaxis DVT prophylaxis Full Code Plan Continue antiemetics and supportive care Antibiotics changed to oral cipro Continue blood glucose monitoring and insulin pump with s/s insulin Wean Solu-cortef to home dosing and monitor blood pressure Possible D/C home in the next 24 to 48 hours The impression and plan of care has been dictated by Cece Tapia, Nurse Practitioner as directed. Dr. Pascale MD I have performed a history and physical examination and medical decision making of this patient, discussed the same with the dictator, and agree with the dictators assessment and plan as written, documented as a scribe. Based on total visit time, I have performed more than 50% of this visit. Objective - Vital Signs Vital signs: Vital Signs Temp 98.1 F 08/27/22 14:00 Pulse 62 08/27/22 14:00 Resp 17 08/27/22 14:00 BP 167/79 08/27/22 14:00 Pulse Ox 94 L 08/27/22 14:00 FiO2 Intake & Output 08/26/22 08/27/22 08/27/22 18:59 06:59 18:59 Intake Total 878 Output Total 150 Balance 878 -150 Intake: Oral 878 Output: Urine 150 Other: Voiding Method External Catheter External Catheter Toilet # Voids 1 # Bowel Movements 1 - Labs CBC & Chem 7: 08/23/22 11:30 08/26/22 06:02 Labs: Abnormal Lab Results - Last 24 Hours (Table) 08/26/22 08/26/22 08/27/22 Range/Units 16:32 20:14 06:21 POC Glucose (mg/dL) 326 H 244 H 278 H (70-110) mg/dL 08/27/22 Range/Units 12:14 POC Glucose (mg/dL) 232 H (70-110) mg/dL Assessment and Plan Time with Patient: Less than 30
[2022-08-27 16:50] LABS: Glucose,Whole Blood 168 mg/dL (70-110)
[2022-08-27] MEDS: ATORVASTATIN 10 MG TAB PO SCH (20:20)
[2022-08-27 21:12] LABS: Glucose,Whole Blood 219 mg/dL (70-110)
[2022-08-27] MEDS: METOPROLOL SUCCINATE (ER) 100 MG TAB.ER.24H PO SCH (21:44)
[2022-08-28] MEDS: HYDROmorphone 1 MG/ML 1 ML SYRINGE IVP PRN ×7 (04:37→20:48)
[2022-08-28 06:32] LABS: Glucose,Whole Blood 249 mg/dL (70-110)
[2022-08-28] MEDS: INSULIN ASPART (NovoLOG) 100 UNIT/ML VIAL SQ SCH ×7 (07:02→20:49)
[2022-08-28] MEDS: lisinopriL 10 MG TAB PO SCH (08:07)
[2022-08-28] MEDS: SPIRONOLACTONE 25 MG TAB PO SCH (08:08)
[2022-08-28] MEDS: hydroCHLOROthiazide 25 MG TAB PO SCH (08:08)
[2022-08-28] MEDS: GABAPENTIN 100 MG CAP PO SCH ×3 (08:08→20:49)
[2022-08-28] MEDS: busPIRone HCl 5 MG TAB PO SCH ×2 (08:08→20:48)
[2022-08-28] MEDS: PANTOPRAZOLE 40 MG TABLET PO SCH (08:09)
[2022-08-28] MEDS: ASPIRIN 81 MG PO SCH (08:09)
[2022-08-28] MEDS: MAGNESIUM OXIDE 400 MG TAB PO SCH (08:09)
[2022-08-28] MEDS: LACTOBACILLUS ACIDOPH & BULGAR 1 EACH PACKET PO SCH ×2 (08:10→20:49)
[2022-08-28] MEDS: MULTIVITAMINS, THERA 1 EACH TAB PO SCH (08:10)
[2022-08-28] MEDS: VIT A,C & E-LUTEIN-MINERALS 1 EACH TAB PO SCH (08:10)
[2022-08-28] MEDS: THIAMINE 100 MG TAB PO SCH (08:10)
[2022-08-28] MEDS: VITAMIN E (DL,TOCOPHERYL ACET) 400 UNIT (180 MG) CAP PO SCH (08:11)
[2022-08-28] MEDS: buPROPion SR 100 MG TABLET.ER PO SCH (08:11)
[2022-08-28] MEDS: CHOLECALCIFEROL 25 MCG (1000 IU) TABLET PO SCH (08:12)
[2022-08-28] MEDS: CIPROFLOXACIN HCL 500 MG TAB PO SCH ×2 (08:12→20:48)
[2022-08-28] MEDS: DORZOLAMIDE HCL 2% DROPS 10 ML BTL RIGHT EYE SCH ×2 (08:12→20:47)
[2022-08-28] MEDS: BRIMONIDINE TARTRATE 0.2% DROPS 5 ML BTL RIGHT EYE SCH ×2 (08:12→20:47)
[2022-08-28] MEDS: HYDROCORTISONE SUCCINATE 100 MG/2 ML VIAL IV SCH ×2 (08:13→20:49)
[2022-08-28] MEDS: FERROUS SULFATE 325 MG TAB PO SCH (08:13)
[2022-08-28] MEDS: CYANOCOBALAMIN 500 MCG TAB PO SCH (08:13)
[2022-08-28] MEDS: FOLIC ACID 1 MG TAB PO SCH (08:13)
[2022-08-28 11:48] LABS: Glucose,Whole Blood 231 mg/dL (70-110)
--- NOTE | 2022-08-28 14:34 | P.PN ---
Subjective Progress Note Date: 08/28/22 This is a pleasant 71-year-old female who is being monitored for acute UTI. Patient's urine culture has finalized and is showing Klebsiella pneumonia with Enterobacter cloacae and patient has been transitioned from IV ertapenem to oral ciprofloxacin. Patient will be monitored overnight on oral Cipro likely will discharge home tomorrow. Additionally patient's blood pressure has been elevated in the 180s systolic and for this reason IV Solu-Cortef has been weaned to 25 mg twice a day. Blood sugars alternating the 200s and this is expected to improve with a decrease in steroids as well as adding meal time insulin. Patient does have insulin pump. Patient continues with intermittent episodes of nausea likely related to antibiotics and continues on zofran, reglan and prn phenergan has been added. 08/28/2022 Patient evaluated on medical floor. Reports no acute events overnight. Patient overall clinically improving does continue to report intermittent episodes of nausea however no emesis noted. Patient continues on oral cipro per ID and will continue for short course on discharge. Patient does not feel strong for discharge home today and would like to stay overnight and see PT and Dr. Gonsales will resume care in the morning. Blood pressure has improved with weaning of the IV hydrocortisone and also hydrochlorothiazide has been stopped at this time sodium was low and blood pressure 110s systolic. Review of Systems Constitutional: Denied any fatigue denied any fever. Cardio vascular: denied any chest pain, palpitations Gastrointestinal: Reports nausea, no vomiting, no diarrhea Pulmonary: Denied any shortness of breath cough Neurologic denied any new focal deficits All inpatient medications were reviewed and appropriate changes in these medications as dictated in the interval history and assessment and plan. PHYSICAL EXAMINATION: GENERAL: The patient is alert and oriented x3, not in any acute distress. Well developed, well nourished. HEENT: Pupils are round and equally reacting to light. EOMI. No scleral icterus. No conjunctival pallor. Normocephalic, atraumatic. No pharyngeal erythema. No thyromegaly. CARDIOVASCULAR: S1 and S2 present. No murmurs, rubs, or gallops. PULMONARY: Chest is clear to auscultation, no wheezing or crackles. ABDOMEN: Soft, nontender, nondistended, normoactive bowel sounds. No palpable organomegaly. MUSCULOSKELETAL: No joint swelling or deformity. EXTREMITIES: No cyanosis, clubbing, or pedal edema. NEUROLOGICAL: Gross neurological examination did not reveal any focal deficits. SKIN: No rashes. Assessment and plan Assessment Troponin leak possibly related to infection, ACS has been ruled out and cardiology has signed off Acute urinary tract infection, present on admission with urine culture showing klebsiella and enterobacter with resistance and patient received IV ertapenem and has been transitioned to oral cipro. Chronic nausea with intractible nausea likely from antibiotics Chronic UTI Hypertension Diabetes Mellitus type 2 Steroid inducted hyperglycemia Chronic adrenal insufficiency maintained on oral cortef History hyperlipidemia Coronary artery disease with prior PCI and 60% proximal LAD stenosis Valvular heart disease Thoracic aortic aneurysm History of renal insufficiency Diabetic peripheral neuropathy History of occipital neuralgia/fibromyalgia History DVT Obstructive sleep apnea uses CPAP Depression GI prophylaxis DVT prophylaxis Full Code Plan Continue antiemetics and supportive care Antibiotics changed to oral cipro Continue blood glucose monitoring and insulin pump with s/s insulin Wean Solu-cortef to home dosing and monitor blood pressure Possible D/C home in the next 24 to 48 hours The impression and plan of care has been dictated by Nurse Esther Pra ctitioner as directed. Dr. Pascale MD I have performed a history and physical examination and medical decision making of this patient, discussed the same with the dictator, and agree with the dictat ors assessment and plan as written, documented as a scribe. Based on total visit time, I have performed more than 50% of this visit. Objective - Vital Signs Vital signs: Vital Signs Temp 98.3 F 08/28/22 06:58 Pulse 52 L 08/28/22 06:58 Resp 17 08/28/22 08:12 BP 117/61 08/28/22 06:58 Pulse Ox 94 L 08/28/22 06:58 FiO2 Intake & Output 08/27/22 08/28/22 08/28/22 17:59 06:59 18:59 Other: Voiding Method Toilet # Voids 1 - Labs CBC & Chem 7: 08/23/22 11:30 08/26/22 06:02 Labs: Abnormal Lab Results - Last 24 Hours (Table) 08/27/22 08/27/22 08/28/22 Range/Units 16:49 21:10 06:30 POC Glucose (mg/dL) 168 H 219 H 249 H (70-110) mg/dL 08/28/22 Range/Units 11:45 POC Glucose (mg/dL) 231 H (70-110) mg/dL Assessment and Plan Time with Patient: Less than 30
--- NOTE | 2022-08-28 15:33 | P.PN ---
Subjective Progress Note Date: 08/28/22 Principal diagnosis: UTIs and multiple antibiotic ALLERGIES Patient is a 71-year-old female with a past medical history significant for recurrent urinary tract infection diabetes mellitus hypertension hyperlipidemia DVT and osteoarthritis presented to the hospital for evaluation of nausea vomiting and also complaining of suprapubic pain did have a positive concerning for symptomatic urinary tract infection. On today's evaluation that is 08/28/2022, the patient continues to be afebrile, the patient denies any chest pain shortness of breath or cough , still combining of some nausea but no vomiting no abdominal pain and no diarrhea Objective - Vital Signs Vital signs: Vital Signs Temp 98.3 F 08/28/22 06:58 Pulse 52 L 08/28/22 06:58 Resp 17 08/28/22 08:12 BP 117/61 08/28/22 06:58 Pulse Ox 94 L 08/28/22 06:58 FiO2 Intake & Output 08/27/22 08/28/22 08/28/22 17:59 06:59 18:59 Other: Voiding Method Toilet # Voids 1 - Exam GENERAL DESCRIPTION: An elderly female lying in bed in no distress RESPIRATORY SYSTEM: Unlabored breathing , decreased breath sounds at bases HEART: S1 S2 regular rate and rhythm , ABDOMEN: Soft , no tenderness EXTREMITIES: No edema feet - Labs CBC & Chem 7: 08/23/22 11:30 08/26/22 06:02 Labs: Abnormal Lab Results - Last 24 Hours (Table) 08/27/22 08/27/22 08/28/22 Range/Units 16:49 21:10 06:30 POC Glucose (mg/dL) 168 H 219 H 249 H (70-110) mg/dL 08/28/22 Range/Units 11:45 POC Glucose (mg/dL) 231 H (70-110) mg/dL Assessment and Plan (1) UTI (urinary tract infection) Current Visit: Yes Status: Acute Code(s): N39.0 - URINARY TRACT INFECTION, SITE NOT SPECIFIED SNOMED Code(s): 57715818 Plan: 1patient presented to hospital with acute nausea vomiting and the patient also having urinary symptoms did have a positive UA and history of recurrent UTI likely symptomatic urinary tract infection from enteric gram-negative pathogen. 2patient with multiple antibiotic allergies that would limit the number of antibiotics safe to use 3patient has shown some clinical improvement , patient to continue with Cipro to finish a course of therapy Time with Patient: Less than 30
[2022-08-28 17:06] LABS: Glucose,Whole Blood 232 mg/dL (70-110)
[2022-08-28 20:04] LABS: Glucose,Whole Blood 156 mg/dL (70-110)
[2022-08-28] MEDS: METOPROLOL SUCCINATE (ER) 50 MG TAB.ER.24H PO SCH (20:48)
[2022-08-28] MEDS: ATORVASTATIN 10 MG TAB PO SCH (20:48)
[2022-08-29] MEDS: HYDROmorphone 1 MG/ML 1 ML SYRINGE IVP PRN ×3 (00:12→09:44)
[2022-08-29 05:57] LABS: Glucose,Whole Blood 237 mg/dL (70-110)
[2022-08-29] MEDS: INSULIN ASPART (NovoLOG) 100 UNIT/ML VIAL SQ SCH ×7 (06:36→21:39)
[2022-08-29] MEDS: HYDROCORTISONE SUCCINATE 100 MG/2 ML VIAL IV SCH (08:18)
[2022-08-29] MEDS: buPROPion SR 100 MG TABLET.ER PO SCH (08:20)
[2022-08-29] MEDS: CIPROFLOXACIN HCL 500 MG TAB PO SCH ×2 (08:20→20:20)
[2022-08-29] MEDS: lisinopriL 10 MG TAB PO SCH (08:20)
[2022-08-29] MEDS: busPIRone HCl 5 MG TAB PO SCH ×2 (08:20→20:19)
[2022-08-29] MEDS: GABAPENTIN 100 MG CAP PO SCH ×3 (08:20→21:39)
[2022-08-29] MEDS: SPIRONOLACTONE 25 MG TAB PO SCH (08:20)
[2022-08-29] MEDS: PANTOPRAZOLE 40 MG TABLET PO SCH (08:20)
[2022-08-29] MEDS: ASPIRIN 81 MG PO SCH (08:20)
[2022-08-29] MEDS: MAGNESIUM OXIDE 400 MG TAB PO SCH (08:20)
[2022-08-29] MEDS: DORZOLAMIDE HCL 2% DROPS 10 ML BTL RIGHT EYE SCH ×2 (08:21→20:24)
[2022-08-29] MEDS: FOLIC ACID 1 MG TAB PO SCH (08:21)
[2022-08-29] MEDS: FERROUS SULFATE 325 MG TAB PO SCH (08:21)
[2022-08-29] MEDS: BRIMONIDINE TARTRATE 0.2% DROPS 5 ML BTL RIGHT EYE SCH ×2 (08:21→20:24)
[2022-08-29] MEDS: CYANOCOBALAMIN 500 MCG TAB PO SCH (08:21)
[2022-08-29] MEDS: CHOLECALCIFEROL 25 MCG (1000 IU) TABLET PO SCH (08:21)
[2022-08-29] MEDS: MULTIVITAMINS, THERA 1 EACH TAB PO SCH (08:22)
[2022-08-29] MEDS: LACTOBACILLUS ACIDOPH & BULGAR 1 EACH PACKET PO SCH ×2 (08:22→20:18)
[2022-08-29] MEDS: THIAMINE 100 MG TAB PO SCH (08:22)
[2022-08-29] MEDS: VIT A,C & E-LUTEIN-MINERALS 1 EACH TAB PO SCH (08:22)
[2022-08-29] MEDS: VITAMIN E (DL,TOCOPHERYL ACET) 400 UNIT (180 MG) CAP PO SCH (08:22)
--- NOTE | 2022-08-29 10:03 | P.PN ---
Subjective Progress Note Date: 08/29/22 H&P Date: 08/24/22 Chief Complaint: Right flank pain, nausea This is a pleasant 71-year-old female with past medical history of cervical radiculopathy with recent bone spur removal plus fusion of C4-5-6 [facility], June, chronic cystitis with history of MDR bacteria,adrenal insufficency, T2DM, migraine, chronic pain, and multiple other medical issues returned to the ER with right flank pain, insomnia, accompanied by nausea, decreased appetite, increased weakness 2-3 days . Patient had previously been in the ER with similar symptoms 2 days prior. Sawyer dehydrated. Denies chest pain, palpitations or shortness of breath. Denies cough congestion. Denies emesis or diarrhea. Currently reports headache. UA reporting many bacteria, large leukocytes and positive nitrates. Received IV fluid hydration, Dilaudid and received vancomycin. Patient had an anaphylactic reaction to vancomycin, significant edema of lips, airway stable.EKG reported sinus tachycardia, troponin 0.051, 0.048. afebrile, T-max 99.3, normal WBC, hemoglobin 13.1, platelets 262, sodium 139, potassium 3.5, bicarbonate 25, BUN 12, creatinine 0.74. Blood sugars controlled. Cardiology consult in place. 08/29/2022 maintained on intense, afebrile. She reports nausea, no emesis, denies abdominal pain. Denies chills. Complains of ongoing weakness/shakiness. Positive bowel movement yesterday-reports required assistance for performing ADLs. Reports she is not ready for discharge today. PT/OT evaluation pending. Fluctuating blood pressure suspect related to IV steroids. Antibiotics have been transitioned to oral as per infectious disease. Denies chest pain, palpitations or shortness of breath. Objective - Vital Signs Vital signs: Vital Signs Temp 97.9 F 08/29/22 07:26 Pulse 61 08/29/22 07:26 Resp 17 08/29/22 07:26 BP 186/90 08/29/22 07:26 Pulse Ox 99 08/29/22 07:26 FiO2 Intake & Output 08/28/22 08/29/22 08/29/22 18:59 06:59 18:59 Other: Voiding Method Toilet Toilet Toilet # Voids 2 4 1 # Bowel Movements 2 - Exam - Exam General: Alert and oriented 3, Sitting up at bedside ,fatigued ,NAD. Vitals reviewed Eyes: PERRL, EOMI, conjunctiva normal,lip edema resolved HENT: normocephalic, mucus membranes moist Neck: supple, no JVD Lungs: normal respiratory effort, CTA CV: Regular rate and rhythm, no murmur. Peripheral pulses 2+. Abdomen: soft, nondistended, minimal right sided tenderness, no organomegaly. No guarding, no rigidity, positive bowel sounds Skin: warm and dry. Neuro: Cranial nerves II through XII grossly intact. - Labs CBC & Chem 7: 08/23/22 11:30 08/26/22 06:02 Labs: Abnormal Lab Results - Last 24 Hours (Table) 08/28/22 08/28/22 08/28/22 Range/Units 11:45 16:50 20:02 POC Glucose (mg/dL) 231 H 232 H 156 H (70-110) mg/dL 08/29/22 Range/Units 05:56 POC Glucose (mg/dL) 237 H (70-110) mg/dL Assessment and Plan Assessment: Acute on chronic recurrent UTI, Klebsiella pneumoniae and Enterobacter Cloacae with resistance, S/P Invanz, transitioned to oral cipro. Anaphylactic reaction to vancomycin, swollen lips, airway stable Troponin leak, not suggestive of acute coronary syndrome as per cardiology. Suspect related to infection. Acute on Chronic nausea, suspect related to antibiotics Chronic cervical radiculopathy, improved pain, recent fusion C4 C5 C6, June 2022 Chronic left shoulder pain ,patient reports since OR. Chronic migraines, reports unchanged from prior Covid, June 2021 Diabetes type 2 on insulin pump, hyperglycemic- steroid induced, A1c 8.7 Diabetic peripheral neuropathy CAD Thoracic aortic aneurysm, outpatient monitoring Hypertension Hyperlipidemia Osteoarthritis History of DVT Obstructive sleep apnea on CPAP at home History of nephrolithiasis Whiteface's disease /Adrenal insufficiency on hydrocortisone 3 times daily. 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 Plan: Continue on current medication regime ,monitoring and symptomatic treatment. Continue on antiemetics, discussed prn Phenergan RX.at dc, as shes very concerned about her intractible nausea. Transitioned to her home dose -or al Cortef. PT /OT consults ordered/evaluation/recommendations pending. Potential subacute rehab at discharge. IV antibiotics have been transitioned to Cipro oral as per infectious disease. Discharge planning in progress. The impression and plan of care has been dictated as directed. : I performed a history and examination of this patient, discussed the same with the dictator. I agree with the dictator's note ,documented as a scribe. Any additional findings or plans will be noted.
[2022-08-29 11:33] LABS: Glucose,Whole Blood 224 mg/dL (70-110)
--- NOTE | 2022-08-29 12:17 | P.PN ---
Subjective Progress Note Date: 08/29/22 Principal diagnosis: UTIs and multiple antibiotic ALLERGIES Patient is a 71-year-old female with a past medical history significant for recurrent urinary tract infection diabetes mellitus hypertension hyperlipidemia DVT and osteoarthritis presented to the hospital for evaluation of nausea vomiting and also complaining of suprapubic pain did have a positive concerning for symptomatic urinary tract infection. On today's evaluation that is 08/29/2022, the patient remains to be afebrile, the patient denies any chest pain shortness of breath or cough , the patient has been complaining of some nausea but no vomiting no abdominal pain and no diarrhea Objective - Vital Signs Vital signs: Vital Signs Temp 97.9 F 08/29/22 07:26 Pulse 61 08/29/22 07:26 Resp 17 08/29/22 07:26 BP 186/90 08/29/22 07:26 Pulse Ox 99 08/29/22 07:26 FiO2 Intake & Output 08/28/22 08/29/22 08/29/22 18:59 06:59 18:59 Other: Voiding Method Toilet Toilet Toilet # Voids 2 4 1 # Bowel Movements 2 - Exam GENERAL DESCRIPTION: An elderly female lying in bed in no distress RESPIRATORY SYSTEM: Unlabored breathing , decreased breath sounds at bases HEART: S1 S2 regular rate and rhythm , ABDOMEN: Soft , no tenderness EXTREMITIES: No edema feet - Labs CBC & Chem 7: 08/23/22 11:30 08/26/22 06:02 Labs: Abnormal Lab Results - Last 24 Hours (Table) 08/28/22 08/28/22 08/28/22 Range/Units 11:45 16:50 20:02 POC Glucose (mg/dL) 231 H 232 H 156 H (70-110) mg/dL 08/29/22 Range/Units 05:56 POC Glucose (mg/dL) 237 H (70-110) mg/dL Assessment and Plan (1) UTI (urinary tract infection) Current Visit: Yes Status: Acute Code(s): N39.0 - URINARY TRACT INFECTION, SITE NOT SPECIFIED SNOMED Code(s): 63242204 Plan: 1patient presented to hospital with acute nausea vomiting and the patient also having urinary symptoms did have a positive UA and history of recurrent UTI likely symptomatic urinary tract infection from enteric gram-negative pathogen. 2patient with multiple antibiotic allergies that would limit the number of antibiotics safe to use 3patient has shown some clinical improvement as far as the UTI is concerned , patient to continue with Cipro to finish a 7 day course of therapy Time with Patient: Less than 30
[2022-08-29] MEDS: HYDROCORTISONE 10 MG TAB PO SCH (13:26)
[2022-08-29] MEDS: HYDROcodone/APAP 10-325MG 1 EACH TAB PO PRN ×2 (16:07→20:18)
[2022-08-29 16:46] LABS: Glucose,Whole Blood 277 mg/dL (70-110)
[2022-08-29] MEDS: ATORVASTATIN 10 MG TAB PO SCH (20:18)
[2022-08-29] MEDS: METOPROLOL SUCCINATE (ER) 50 MG TAB.ER.24H PO SCH (20:19)
[2022-08-29 20:48] LABS: Glucose,Whole Blood 238 mg/dL (70-110)
[2022-08-29] MEDS ORDERED: HYDROCORTISONE 10 MG TAB PO SCH (21:00)
[2022-08-30] MEDS: HYDROcodone/APAP 10-325MG 1 EACH TAB PO PRN ×4 (00:24→12:56)
[2022-08-30 06:10] LABS: Glucose,Whole Blood 323 mg/dL (70-110)
[2022-08-30] MEDS: INSULIN ASPART (NovoLOG) 100 UNIT/ML VIAL SQ SCH ×4 (06:47→12:26)
[2022-08-30 07:33] VITALS: BP 155/77; PULSE 58; RESP 17; TEMP 98.1
[2022-08-30] MEDS: ASPIRIN 81 MG PO SCH (08:49)
[2022-08-30] MEDS: lisinopriL 10 MG TAB PO SCH (08:49)
[2022-08-30] MEDS: GABAPENTIN 100 MG CAP PO SCH (08:49)
[2022-08-30] MEDS: PANTOPRAZOLE 40 MG TABLET PO SCH (08:50)
[2022-08-30] MEDS: buPROPion SR 100 MG TABLET.ER PO SCH (08:50)
[2022-08-30] MEDS: SPIRONOLACTONE 25 MG TAB PO SCH (08:51)
[2022-08-30] MEDS: busPIRone HCl 5 MG TAB PO SCH (08:51)
[2022-08-30] MEDS: CIPROFLOXACIN HCL 500 MG TAB PO SCH (08:51)
[2022-08-30] MEDS: MAGNESIUM OXIDE 400 MG TAB PO SCH (08:56)
[2022-08-30] MEDS: FOLIC ACID 1 MG TAB PO SCH (08:56)
[2022-08-30] MEDS: LACTOBACILLUS ACIDOPH & BULGAR 1 EACH PACKET PO SCH (08:56)
[2022-08-30] MEDS: CHOLECALCIFEROL 25 MCG (1000 IU) TABLET PO SCH (08:56)
[2022-08-30] MEDS: CYANOCOBALAMIN 500 MCG TAB PO SCH (08:56)
[2022-08-30] MEDS: FERROUS SULFATE 325 MG TAB PO SCH (08:56)
[2022-08-30] MEDS: THIAMINE 100 MG TAB PO SCH (08:57)
[2022-08-30] MEDS: DORZOLAMIDE HCL 2% DROPS 10 ML BTL RIGHT EYE SCH (08:57)
[2022-08-30] MEDS: BRIMONIDINE TARTRATE 0.2% DROPS 5 ML BTL RIGHT EYE SCH (08:57)
[2022-08-30] MEDS: MULTIVITAMINS, THERA 1 EACH TAB PO SCH (08:57)
[2022-08-30] MEDS: VIT A,C & E-LUTEIN-MINERALS 1 EACH TAB PO SCH (08:58)
[2022-08-30] MEDS: VITAMIN E (DL,TOCOPHERYL ACET) 400 UNIT (180 MG) CAP PO SCH (08:58)
[2022-08-30] MEDS ORDERED: HYDROCORTISONE 10 MG TAB PO SCH (09:00)
[2022-08-30 11:35] LABS: Glucose,Whole Blood 187 mg/dL (70-110)
--- NOTE | 2022-08-30 11:45 | P.DS ---
Providers Date of admission: 08/25/22 09:28 Expected date of discharge: 08/30/22 Attending physician: Andrew Gonsales MD Consults: 08/24/22 18:57 Consult Physician Urgent Consulting Provider: Chalino Osman Consult Reason/Comments: UTI, allergy to many antibiotics, QT prolongation Do you want consulting provider notified?: Yes Primary care physician: Andrew Gonsales MD Hospital Course: Final Diagnoses: Acute on chronic recurrent UTI, Klebsiella pneumoniae and Enterobacter Cloacae with resistance, S/P Invanz, transitioned to oral cipro. Anaphylactic reaction to vancomycin, swollen lips, airway stable, resolved. Troponin leak, not suggestive of acute coronary syndrome as per cardiology. Suspect related to infection. Acute on Chronic nausea, suspect related to antibiotics, improved with antiemetics Chronic cervical radiculopathy, improved pain, recent fusion C4 C5 C6, June 2022 Chronic left shoulder pain ,patient reports since OR. Chronic migraines, reports unchanged from prior [place], June 2021 Diabetes type 2 on insulin pump, hyperglycemic- steroid induced, A1c 8.7 Diabetic peripheral neuropathy CAD Thoracic aortic aneurysm, outpatient monitoring Hypertension Hyperlipidemia Osteoarthritis History of DVT Obstructive sleep apnea on CPAP at home History of nephrolithiasis Denver's disease /Adrenal insufficiency on hydrocortisone 3 times daily. 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 Hospital course:This is a pleasant 71-year-old female with past medical history of cervical radiculopathy with recent bone spur removal plus fusion of C4-5-6 [facility], June, chronic cystitis with history of MDR bacteria,adrenal insufficency, T2DM, migraine, chronic pain, and multiple other medical issues returned to the ER with right flank pain, insomnia, accompanied by nausea, decreased appetite, increased weakness 2-3 days . Patient had previ ously been in the ER with similar symptoms 2 days prior. [place] dehydrated. Denies chest pain, palpitations or shortness of breath. Denies cough congestion. Denies emesis or diarrhea. Currently reports headache. UA reporting many bacteria, large leukocytes and positive nitrates. Received IV fluid hydration, Dilaudid and received vancomycin. Patient had an anaphylactic reaction to vancomycin, significant edema of lips, airway stable.EKG reported sinus tachycardia, troponin 0.051, 0.048. afebrile, T-max 99.3, normal WBC, hemoglobin 13.1, platelets 262, sodium 139, potassium 3.5, bicarbonate 25, BUN 12, creatinine 0.74. Blood sugars controlled. Cardiology consult in place. 08/29/2022 maintained on intense, afebrile. She reports nausea, no emesis, denies abdominal pain. Denies chills. Complains of ongoing weakness/shakiness. Positive bowel movement yesterday-reports required assistance for performing ADLs. Reports she is not ready for discharge today. PT/OT evaluation pending. Fluctuating blood pressure suspect related to IV steroids. Antibiotics have been transitioned to oral as per infectious disease. Denies chest pain, palpitations or shortness of breath. Maintained on antiemetics, nausea improved.Transitioned to her home dose -oral Cortef yesterday .IV Antibiotics have been transitioned to Cipro oral. Evaluated by PT, recommending home with home care. Significant clinical improvement. Afebril. Denies chest pain, palpitations or shortness of breath. Maintaining O2 sats in the high 90s on room air. Cleared by infectious disease with recommendations for patient to continue with Cipro finishing a 7 day course. Patient will be discharged home today in stable condition with guarded prognosis. The impression and plan of care has been dictated as directed. : I performed a history and examination of this patient, discussed the same with the dictator. I agree with the dictator's note ,documented as a scribe. Any additional findings or plans will be noted. Patient Condition at Discharge: Stable Plan - Discharge Summary New Discharge Prescriptions: New Ciprofloxacin HCl [Cipro] 500 mg PO BID #14 tab Metoprolol Succinate (ER) [Toprol XL] 50 mg PO HS #30 tab Continue Meclizine [Antivert] 25 mg PO QID PRN PRN Reason: Vertigo Aspirin 81 mg PO DAILY #0 Ferrous Sulfate [Iron (65 MG Elemental)] 325 mg PO DAILY Vitamin B-Complex Drops 1 drop PO BID Thiamine [Vitamin B-1] 100 mg PO DAILY Folic Acid 0.4 mg PO DAILY L.acidoph,Paracasei, B.lactis [Probiotic] 2 cap PO BID Melatonin 5 mg PO HS PRN PRN Reason: Insomnia Potassium 99 mg PO DAILY Gabapentin [Neurontin] 100 mg PO TID #9 cap Spironolactone 50 mg PO DAILY C,E,Zinc,Copper 11/[id number]/Lut [Ocuvite Adult 50 Plus Softgel] 1 cap PO DAILY Cyanocobalamin (Vitamin B-12) [Vitamin B-12] 1,000 mcg PO DAILY Vitamin E 400 unit PO DAILY Brimonidine Tartrate [Alphagan P 0.2% Ophth Soln] 1 drop RIGHT EYE BID Pantoprazole Sodium [Protonix] 40 mg PO DAILY Cholecalciferol [Vitamin D3 (25 Mcg = 1000 Iu)] 75 mcg PO DAILY Promethazine HCl [Phenergan Syrup] 6.25 mg PO Q6H PRN PRN Reason: Cough Dorzolamide 2% [Trusopt 2%] 1 drop RIGHT EYE BID Butalb/APAP/Caff 50-325-40Mg [Fioricet 50-325-40] 1 tab PO Q6H PRN PRN Reason: Migraine Headache buPROPion HCL [Wellbutrin SR] 200 mg PO DAILY Hydrocortisone [Cortef] 10 mg PO DAILY@1200 #0 Hydrocortisone [Cortef] 15 mg PO DAILY #0 lisinopriL [Zestril] 30 mg PO DAILY Metoclopramide [Reglan] 5 mg PO TID PRN PRN Reason: Nausea Glucagon [Gvoke Pfs 1-Pack Syringe] 1 mg SQ ONCE PRN PRN Reason: severe hypoglycemia busPIRone HCl [Buspar] 5 mg PO BID Nystatin 1 applic TOPICAL BID PRN PRN Reason: Skin Irritation Insulin Aspart (For Pump) [NovoLOG (For Pump)] 0.01 unit SQ-PUMP CONTINUOUS Rosuvastatin Calcium [Crestor] 5 mg PO HS Multivit-Min/Folic Acid/[id number] [Alive Premium Adult Multivit] 1 tab PO DAILY Magnesium Oxide [Magnesium] 500 mg PO DAILY hydroCHLOROthiazide [Hydrodiuril] 25 mg PO DAILY Cranberry Fruit Extract [Cranberry] 1,000 mg PO DAILY Hydrocortisone [Cortef] 5 mg PO HS #0 Ondansetron Odt [Zofran ODT] 8 mg PO Q8HR PRN #15 tab PRN Reason: Nausea methocarbamoL [Methocarbamol] 1,000 mg PO Q6H PRN PRN Reason: Muscle Pain Diclofenac Sodium Gel [Voltaren Gel] 2 gm TOPICAL QID PRN PRN Reason: Pain Promethazine [Phenergan] 25 mg PO BID PRN #30 tab PRN Reason: Nausea Cephalexin [Keflex] 250 mg PO HS #0 HYDROcodone/APAP 10-325MG [Hubbard 10-325] 1 tab PO Q4H PRN #12 tab PRN Reason: Pain Discontinued Metoprolol Succinate [Toprol XL] 100 mg PO HS Discharge Medication List Meclizine [Antivert] 25 mg PO QID PRN 11/26/17 [History] Aspirin 81 mg PO DAILY #0 07/02/18 [Rx] Ferrous Sulfate [Iron (65 MG Elemental)] 325 mg PO DAILY 10/08/18 [History] Folic Acid 0.4 mg PO DAILY 10/08/18 [History] L.acidoph,Paracasei, B.lactis [Probiotic] 2 cap PO BID 10/08/18 [History] Melatonin 5 mg PO HS PRN 10/08/18 [History] Potassium 99 mg PO DAILY 10/08/18 [History] Thiamine [Vitamin B-1] 100 mg PO DAILY 10/08/18 [History] Vitamin B-Complex Drops 1 drop PO BID 10/08/18 [History] Gabapentin [Neurontin] 100 mg PO TID #9 cap 03/24/20 [Rx] C,E,Zinc,Copper 11/[id number]/Lut [Ocuvite Adult 50 Plus Softgel] 1 cap PO DAILY 06/25/20 [History] Cyanocobalamin (Vitamin B-12) [Vitamin B-12] 1,000 mcg PO DAILY 06/25/20 [History] Spironolactone 50 mg PO DAILY 06/25/20 [History] Vitamin E 400 unit PO DAILY 06/25/20 [History] Brimonidine Tartrate [Alphagan P 0.2% Ophth Soln] 1 drop RIGHT EYE BID 11/26/20 [History] Glucagon [Gvoke Pfs 1-Pack Syringe] 1 mg SQ ONCE PRN 11/26/20 [History] Pantoprazole Sodium [Protonix] 40 mg PO DAILY 11/26/20 [History] busPIRone HCl [Buspar] 5 mg PO BID 02/04/21 [History] Nystatin 1 applic TOPICAL BID PRN 02/17/21 [History] Insulin Aspart (For Pump) [NovoLOG (For Pump)] 0.01 unit SQ-PUMP CONTINUOUS 03/03/21 [History] Rosuvastatin Calcium [Crestor] 5 mg PO HS 08/15/21 [History] Cholecalciferol [Vitamin D3 (25 Mcg = 1000 Iu)] 75 mcg PO DAILY 09/21/21 [History] Butalb/APAP/Caff 50-325-40Mg [Fioricet 50-325-40] 1 tab PO Q6H PRN 05/25/22 [History] Cranberry Fruit Extract [Cranberry] 1,000 mg PO DAILY 05/25/22 [History] Dorzolamide 2% [Trusopt 2%] 1 drop RIGHT EYE BID 05/25/22 [History] Magnesium Oxide [Magnesium] 500 mg PO DAILY 05/25/22 [History] Multivit-Min/Folic Acid/[id number] [Alive Premium Adult Multivit] 1 tab PO DAILY 05/25/22 [History] Promethazine HCl [Phenergan Syrup] 6.25 mg PO Q6H PRN 05/25/22 [History] buPROPion HCL [Wellbutrin SR] 200 mg PO DAILY 05/25/22 [History] hydroCHLOROthiazide [Hydrodiuril] 25 mg PO DAILY 05/25/22 [History] Hydrocortisone [Cortef] 5 mg PO HS #0 05/30/22 [Rx] Hydrocortisone [Cortef] 10 mg PO DAILY@1200 #0 05/30/22 [Rx] Hydrocortisone [Cortef] 15 mg PO DAILY #0 05/30/22 [Rx] Ondansetron Odt [Zofran ODT] 8 mg PO Q8HR PRN #15 tab 07/04/22 [Rx] Metoclopramide [Reglan] 5 mg PO TID PRN 07/17/22 [History] lisinopriL [Zestril] 30 mg PO DAILY 07/17/22 [History] methocarbamoL [Methocarbamol] 1,000 mg PO Q6H PRN 07/17/22 [History] Diclofenac Sodium Gel [Voltaren Gel] 2 gm TOPICAL QID PRN 08/03/22 [History] Metoprolol Succinate (ER) [Toprol XL] 50 mg PO HS #30 tab 08/29/22 [Rx] Promethazine [Phenergan] 25 mg PO BID PRN #30 tab 08/29/22 [Rx] Cephalexin [Keflex] 250 mg PO HS #0 08/30/22 [Rx] Ciprofloxacin HCl [Cipro] 500 mg PO BID #14 tab 08/30/22 [Rx] HYDROcodone/APAP 10-325MG [Hubbard 10-325] 1 tab PO Q4H PRN #12 tab 08/30/22 [Rx] Follow up Appointment(s)/Referral(s): Andrew Gonsales MD [Primary Care Provider] - 09/01/22 1:00 pm (In [place] Office) Warren Rosenberg MD [STAFF PHYSICIAN] - 09/06/22 11:15 am [facility], [NON-STAFF] -
[2022-08-30] MEDS: HYDROCORTISONE 10 MG TAB PO SCH (12:26)
--- NOTE | 2022-08-30 12:40 | P.PN ---
Subjective Progress Note Date: 08/30/22 Principal diagnosis: UTIs and multiple antibiotic ALLERGIES Patient is a 71-year-old female with a past medical history significant for recurrent urinary tract infection diabetes mellitus hypertension hyperlipidemia DVT and osteoarthritis presented to the hospital for evaluation of nausea vomiting and also complaining of suprapubic pain did have a positive concerning for symptomatic urinary tract infection. On today's evaluation that is 08/30/2022, the patient continues to be afebrile, the patient denies any chest pain shortness of breath or cough , the patient na usea has improved no vomiting no abdominal pain and no diarrhea Objective - Vital Signs Vital signs: Vital Signs Temp 98.1 F 08/30/22 07:30 Pulse 58 L 08/30/22 07:30 Resp 17 08/30/22 07:30 BP 155/77 08/30/22 07:30 Pulse Ox 98 08/30/22 07:30 FiO2 Intake & Output 08/29/22 08/30/22 08/30/22 18:59 06:59 18:59 Output Total 4 Balance -4 Output: Urine 4 Other: Voiding Method Toilet Toilet Toilet # Voids 2 2 # Bowel Movements 1 - Exam GENERAL DESCRIPTION: An elderly female lying in bed in no distress RESPIRATORY SYSTEM: Unlabored breathing , decreased breath sounds at bases HEART: S1 S2 regular rate and rhythm , ABDOMEN: Soft , no tenderness EXTREMITIES: No edema feet - Labs CBC & Chem 7: 08/23/22 11:30 08/26/22 06:02 Labs: Abnormal Lab Results - Last 24 Hours (Table) 08/29/22 08/29/22 08/30/22 Range/Units 16:39 20:46 06:07 POC Glucose (mg/dL) 277 H 238 H 323 H (70-110) mg/dL 08/30/22 Range/Units 11:33 POC Glucose (mg/dL) 187 H (70-110) mg/dL Assessment and Plan (1) UTI (urinary tract infection) Current Visit: Yes Status: Acute Code(s): N39.0 - URINARY TRACT INFECTION, SITE NOT SPECIFIED SNOMED Code(s): 32541852 Plan: 1patient presented to hospital with acute nausea vomiting and the patient also having urinary symptoms did have a positive UA and history of recurrent UTI likely symptomatic urinary tract infection from enteric gram-negative pathogen. 2patient with multiple antibiotic allergies that would limit the number of antibiotics safe to use 3patient has shown some clinical improvement plan is to continue with Cipro to finish a total of 7 day course of therapy and close outpatient follow-up Time with Patient: Less than 30
== END 2022-08-30 13:08 | disposition home health service (06) | DRG 690 ==
LOC: EC 11:12 → 3SCARD 16:14 → OBSVTOIN 08-25 09:28 → 3SCARD 08-26 04:26 → 4SSUR 08-27 13:46
PROVIDERS: ADMIT Family Medicine; ATTEND Family Medicine
DX: N39.0 Urinary tract infection, site not specified (principal); Z16.11 Resistance to penicillins; E27.1 Primary adrenocortical insufficiency; T88.6XXA Anaphylactic reaction due to adverse effect of correct drug or medicament properly administered, initial encounter; B96.1 Klebsiella pneumoniae [K. pneumoniae] as the cause of diseases classified elsewhere; B96.89 Other specified bacterial agents as the cause of diseases classified elsewhere; E11.42 Type 2 diabetes mellitus with diabetic polyneuropathy; E11.65 Type 2 diabetes mellitus with hyperglycemia; E78.5 Hyperlipidemia, unspecified; E86.0 Dehydration; F32.A Depression, unspecified; G43.909 Migraine, unspecified, not intractable, without status migrainosus; G47.00 Insomnia, unspecified; G47.33 Obstructive sleep apnea (adult) (pediatric); I10 Essential (primary) hypertension; I25.10 Atherosclerotic heart disease of native coronary artery without angina pectoris; I71.20 Thoracic aortic aneurysm, without rupture, unspecified; I27.20 Pulmonary hypertension, unspecified; K21.9 Gastro-esophageal reflux disease without esophagitis; M15.9 Polyosteoarthritis, unspecified; R11.0 Nausea; T36.8X5A Adverse effect of other systemic antibiotics, initial encounter; Z87.440 Personal history of urinary (tract) infections; M79.7 Fibromyalgia; Z89.421 Acquired absence of other right toe(s); M54.81 Occipital neuralgia; T36.95XA Adverse effect of unspecified systemic antibiotic, initial encounter; T38.0X5A Adverse effect of glucocorticoids and synthetic analogues, initial encounter; Z86.16 Personal history of COVID-19; E21.3 Hyperparathyroidism, unspecified; Z98.1 Arthrodesis status; M54.12 Radiculopathy, cervical region; M25.512 Pain in left shoulder; Z87.442 Personal history of urinary calculi; R77.8 Other specified abnormalities of plasma proteins; Z88.1 Allergy status to other antibiotic agents; Z88.0 Allergy status to penicillin; Z88.2 Allergy status to sulfonamides; Z88.8 Allergy status to other drugs, medicaments and biological substances; Z86.14 Personal history of Methicillin resistant Staphylococcus aureus infection; Z83.3 Family history of diabetes mellitus; Z82.49 Family history of ischemic heart disease and other diseases of the circulatory system; Z79.4 Long term (current) use of insulin; Z79.82 Long term (current) use of aspirin; Z79.899 Other long term (current) drug therapy; Z86.718 Personal history of other venous thrombosis and embolism; Z98.61 Coronary angioplasty status
CPT/HCPCS: 36415; 80048; 80053; 81001; 82533; 82565; 83735; 84443; 84484; 85025; 85610; 85730; 87077; 87086; 87186; 87324; 93005; 93306; 96361; 96365; 96366; 96375; 96376; 99285

== ENCOUNTER 2022-09-04 13:14 | Observation (INO) | payer MEDICARE, BC ==
[2022-09-04] MEDS ORDERED: HYDROmorphone 1 MG/ML 1 ML SYRINGE IVP STA (13:56)
[2022-09-04] MEDS ORDERED: ONDANSETRON 4 MG/2 ML VIAL IVP STA (13:56)
[2022-09-04] MEDS ORDERED: SODIUM CHLORIDE 0.9% 500 ML 500 ML IV ONE (13:56)
--- NOTE | 2022-09-04 14:10 | ED ---
Nausea/Vomiting/Diarrhea HPI - General Chief complaint: Nausea/Vomiting/Diarrhea Stated complaint: nausea, pain Time Seen by Provider: 09/04/22 13:41 Source: patient Mode of arrival: wheelchair Limitations: no limitations - History of Present Illness Initial comments: Patient is a 71-year-old female presenting with chief complaint of nausea and vomiting. Patient does have history of chronic nausea, issues have been exacerbated recently by UTI. Patient was just discharged 5 days ago, she was hospitalized for treatment of UTI and elevated troponin, which was attributed to infection. She was discharged on Cipro and Phenergan for nausea, states that she has not been able take her medications for 2 days due to nausea and vomiting. States that today she developed some diarrhea. No chest pain or difficulty breathing. Patient is also complaining of pain to the left shoulder. Patient states that this pain is chronic, developed after a neck surgery when she was strapped to the table in an uncomfortable position for prolonged period of time. No palpitations or abdominal pain. No back pain. No fevers or chills. - Related Data Home Medications Medication Instructions Recorded Confirmed Meclizine [Antivert] 25 mg PO QID PRN 11/26/17 09/04/22 Ferrous Sulfate [Iron (65 MG 325 mg PO DAILY 10/08/18 09/04/22 Elemental)] Folic Acid 0.4 mg PO DAILY 10/08/18 09/04/22 L.acidoph,Paracasei, B.lactis 2 cap PO BID 10/08/18 09/04/22 [Probiotic] Melatonin 5 mg PO HS PRN 10/08/18 09/04/22 Potassium 99 mg PO DAILY 10/08/18 09/04/22 Thiamine [Vitamin B-1] 100 mg PO DAILY 10/08/18 09/04/22 Vitamin B-Complex Drops 1 drop PO BID 10/08/18 09/04/22 C,E,Zinc,Copper 11/Kzdxe4o/Lut 1 cap PO DAILY 06/25/20 09/04/22 [Ocuvite Adult 50 Plus Softgel] Cyanocobalamin (Vitamin B-12) 1,000 mcg PO DAILY 06/25/20 09/04/22 [Vitamin B-12] Spironolactone 50 mg PO DAILY 06/25/20 09/04/22 Vitamin E 400 unit PO DAILY 06/25/20 09/04/22 Brimonidine Tartrate [Alphagan P 1 drop RIGHT EYE BID 11/26/20 09/04/22 0.2% Ophth Soln] Glucagon [Gvoke Pfs 1-Pack Syringe] 1 mg SQ ONCE PRN 11/26/20 09/04/22 Pantoprazole Sodium [Protonix] 40 mg PO DAILY 11/26/20 09/04/22 busPIRone HCl [Buspar] 5 mg PO BID 02/04/21 09/04/22 Nystatin 1 applic TOPICAL BID PRN 02/17/21 09/04/22 Insulin Aspart (For Pump) [NovoLOG 0.01 unit SQ-PUMP CONTINUOUS 03/03/21 09/04/22 (For Pump)] Rosuvastatin Calcium [Crestor] 5 mg PO HS 08/15/21 09/04/22 Cholecalciferol [Vitamin D3 (25 75 mcg PO DAILY 09/21/21 09/04/22 Mcg = 1000 Iu)] Butalb/APAP/Caff 50-325-40Mg 1 tab PO Q6H PRN 05/25/22 09/04/22 [Fioricet 50-325-40] Cranberry Fruit Extract [Cranberry] 1,000 mg PO DAILY 05/25/22 09/04/22 Dorzolamide 2% [Trusopt 2%] 1 drop RIGHT EYE BID 05/25/22 09/04/22 Magnesium Oxide [Magnesium] 500 mg PO DAILY 05/25/22 09/04/22 Multivit-Min/Folic Acid/Cya247 1 tab PO DAILY 05/25/22 09/04/22 [Alive Premium Adult Multivit] Promethazine HCl [Phenergan Syrup] 6.25 mg PO Q6H PRN 05/25/22 09/04/22 buPROPion HCL [Wellbutrin SR] 200 mg PO DAILY 05/25/22 09/04/22 hydroCHLOROthiazide [Hydrodiuril] 25 mg PO DAILY 05/25/22 09/04/22 Metoclopramide [Reglan] 5 mg PO TID PRN 07/17/22 09/04/22 lisinopriL [Zestril] 30 mg PO DAILY 07/17/22 09/04/22 methocarbamoL [Methocarbamol] 1,000 mg PO Q6H PRN 07/17/22 09/04/22 Diclofenac Sodium Gel [Voltaren 2 gm TOPICAL QID PRN 08/03/22 09/04/22 Gel] Cephalexin [Keflex] 250 mg PO DIRECTED 09/04/22 09/04/22 Previous Rx's Medication Instructions Recorded Aspirin 81 mg PO DAILY #0 07/02/18 Gabapentin [Neurontin] 100 mg PO TID #9 cap 03/24/20 Hydrocortisone [Cortef] 5 mg PO HS #0 05/30/22 Hydrocortisone [Cortef] 10 mg PO DAILY@1200 #0 05/30/22 Hydrocortisone [Cortef] 15 mg PO DAILY #0 05/30/22 Ondansetron Odt [Zofran ODT] 8 mg PO Q8HR PRN #15 tab 07/04/22 Metoprolol Succinate (ER) [Toprol 50 mg PO HS #30 tab 08/29/22 XL] Promethazine [Phenergan] 25 mg PO BID PRN #30 tab 08/29/22 Ciprofloxacin HCl [Cipro] 500 mg PO BID 4 Days #7 tab 08/30/22 HYDROcodone/APAP 10-325MG [[place] 1 tab PO Q4H PRN #12 tab 08/30/22 10-325] Allergies Allergy/AdvReac Type Severity Reaction Status Date / Time butorphanol tartrate Allergy BLISTERS Verified 09/04/22 18:51 [From Stadol] IN MOUTH ceftriaxone [From Rocephin] Allergy Unknown Verified 09/04/22 18:51 clarithromycin [From Biaxin] Allergy Rash/Hives Verified 09/04/22 18:51 clindamycin Allergy Unknown Verified 09/04/22 18:51 codeine Allergy Rash/Hives Verified 09/04/22 18:51 ergotamine tartrate Allergy Unknown Verified 09/04/22 18:51 [From Cafergot] erythromycin base Allergy RASH, GI Verified 09/04/22 18:51 [From E-Mycin] SYMPTOMS ketorolac tromethamine Allergy Rash/Hives Verified 09/04/22 18:51 [From Toradol] liraglutide [From Victoza] Allergy Rash/Hives Verified 09/04/22 18:51 morphine Allergy Rash/Hives Verified 09/04/22 18:51 Penicillins Allergy Rash/Hives Verified 09/04/22 18:51 on upper body pentazocine lactate Allergy SEVERE Verified 09/04/22 18:51 [From Talwin] BLISTERS IN MOUTH pregabalin [From Lyrica] Allergy Rash/Hives Verified 09/04/22 18:51 propoxyphene HCl Allergy Rash/Hives Verified 09/04/22 18:51 [From Darvon] Sulfa (Sulfonamide Allergy Rash/Hives Verified 09/04/22 18:51 Antibiotics) tramadol Allergy Unknown Verified 09/04/22 18:51 vancomycin Allergy Swelling Verified 09/04/22 18:51 monosodium glutamate [MSG] AdvReac Nausea & Verified 09/04/22 18:51 Vomiting nalbuphine HCl [From Nubain] AdvReac Nausea & Verified 09/04/22 18:51 Vomiting Review of Systems ROS Statement: Those systems with pertinent positive or pertinent negative responses have been documented in the HPI. ROS Other: All systems not noted in ROS Statement are negative. Past Medical History Past Medical History: Diabetes Mellitus, Deep Vein Thrombosis (DVT), Fi bromyalgia, Hyperlipidemia, Hypertension, Osteoarthritis (OA), Pneumonia, Renal Disease, Sleep Apnea/CPAP/BIPAP, Vascular Disorder Additional Past Medical History / Comment(s): Pt recently admitted to [facility] with R flank pain. 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, DVT R calf in 1976, cardiac murmur, occipital neuraligia, balance issues-has victorino rowing of vessels "in the back of my head", vertigo, varicosities, states rt shoulder torn rotator cuff History of Any Multi-Drug Resistant Organisms: ESBL, MRSA, VRE Date of last positivie culture/infection: 11/25/20 ESBL;12/06/19 VRE; 03/10/11 MRSA MDRO Source:: Urine ESBL; Urine-VRE: MRSA 4th Right TOE Past Surgical History: Appendectomy, Back Surgery, Bladder Surgery, Breast Surgery, Cholecystectomy, Heart Catheterization, Hysterectomy, Orthopedic Surgery, Tonsillectomy Additional Past Surgical History / Comment(s): Lumbar fusions, bladder suspension, occipital nerve blocks, 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, R wrist/elbow nerve repair, bone removed R shoulder, 4th toe R foot partial amputation, bilateral feet/bunionectomies, R knee arthroscopies, R orbit deco mpression with ethmoidectomy and eyelid lift, EGD, colonoscopies, cystocopies, lithotripsy/stents, bilateral breast reduction, bilateral cataract removals, parathyroid surgery - April 2019, pain clinic procedures Past Anesthesia/Blood Transfusion Reactions: No Reported Reaction Additional Past Anesthesia/Blood Transfusion Reaction / Comment(s): never recieved blood Past Psychological History: Depression Smoking Status: Never smoker Past Alcohol Use History: Occasional Past Drug Use History: None Reported - Past Family History Father Family Medical History: Coronary Artery Disease (CAD), CVA/TIA, Diabetes Mellitus, Myocardial Infarction ([place]), Pneumonia Additional Family Medical History / Comment(s): Father at the age of 78yrs from [place] and pneumonia. Mother Family Medical History: Cancer, Congestive Heart Failure (CHF) Additional Family Medical History / Comment(s): Mother had uterine cancer. She recently at the age of 96yrs old from shingles. General Exam Limitations: no limitations General appearance: alert, in no apparent distress Head exam: Present: atraumatic, normocephalic, normal inspection Eye exam: Present: normal appearance Neck exam: Present: normal inspection, full ROM Respiratory exam: Present: normal lung sounds bilaterally. Absent: respiratory distress, wheezes, rales, rhonchi, stridor Cardiovascular Exam: Present: regular rate, normal rhythm, normal heart sounds. Absent: systolic murmur, diastolic murmur, rubs, gallop, clicks GI/Abdominal exam: Present: soft. Absent: distended, tenderness, guarding, rebound, rigid Extremities exam: Present: normal inspection, full ROM, tenderness (L Shoulder) Neurological exam: Present: alert, oriented X3, CN II-XII intact Psychiatric exam: Present: normal affect, normal mood Skin exam: Present: warm, dry, intact, normal color. Absent: rash Course Vital Signs 09/04/22 09/04/22 09/04/22 13:32 17:53 18:00 Temperature 99.0 F Pulse Rate 117 H 114 H Respiratory 18 18 16 Rate Blood Pressure 128/81 114/72 114/72 O2 Sat by Pulse 97 93 L 95 Oximetry 09/04/22 19:00 Temperature Pulse Rate Respiratory 16 Rate Blood Pressure 121/82 O2 Sat by Pulse 95 Oximetry Medical Decision Making - Medical Decision Making Was pt. sent in by a medical professional or institution (STEPHANY Rodriguez, MASTER SCHEDULER, urgent care, hospital, or [facility]...) When possible be specific @ -No Did you speak to anyone other than the patient for history (EMS, parent, family, police, friend...)? What history was obtained from this source @ -No Did you review nursing and triage notes (agree or disagree)? Why? @ -I reviewed and agree with nursing and triage notes Were old charts reviewed (outside hosp., previous admission, EMS record, old EKG, old radiological studies, urgent care reports/EKG's, [facility] records)? Report findings @ -Previous admission reviewed Differential Diagnosis (chest pain, altered mental status, abdominal pain women, abdominal pain men, vaginal bleeding, weakness, fever, dyspnea, syncope, head ache, dizziness, GI bleed, back pain, seizure, CVA, palpatations, mental health, musculoskeletal)? Differential includes gastroenteritis, GI upset due to antibiotics, exacerbation of chronic nausea, this is not an all inclusive list EKG interpreted by me (3pts min.). @ -As above X-rays interpreted by me (1pt min.). @ -None done CT interpreted by me (1pt min.). @ -None done U/S interpreted by me (1pt. min.). @ -None done What testing was considered but not performed or refused? (CT, X-rays, U/S, labs)? Why? @ -None What meds were considered but not given or refused? Why? @ -None Did you discuss the management of the patient with other professionals (professionals i.e. STEPHANY Rodriguez, MASTER SCHEDULER, lab, RT, psych nurse, director of social services, orthotics technician, teacher, information systems security officer, bilingual patient support caseworker)? Give summary @ -No Was smoking cessation discussed for >3mins.? @ -No Was critical care preformed (if so, how long)? @ -No Were there social determinants of health that impacted care today? How? (Homelessness, low income, unemployed, alcoholism, drug addiction, transportation, low edu. Level, literacy, decrease access to med. care, long-term, rehab)? @ -No Was there de-escalation of care discussed even if they declined (Discuss DNR or withdrawal of care, Hospice)? DNR status @ -No What co-morbidities impacted this encounter? (DM, HTN, Smoking, COPD, CAD, Cancer, CVA, ARF, Chemo, Hep., AIDS, mental health diagnosis, sleep apnea, morbid obesity)? @ -None Was patient admitted / discharged? Hospital course, mention meds given and r oute, prescriptions, significant lab abnormalities, going to OR and other pertinent info. @ -Patient is a 71-year-old female presenting with chief complaint of nausea and vomiting. Patient has chronic nausea and vomiting as well as chronic shoulder pain. She was recently discharged after stay for UTI. Physical examination is unremarkable. Lab work shows no leukocytosis or anemia. Potassium is 2.8, patient is receiving IV replacement. Patient received IV antibiotics, which she states have moderately helped. Urine still shows evidence of UTI, patient will be continued on her by mouth Cipro. I spoke with Dr. Harris who accepted admission. Patient is verbal with this plan. I discussed this case with my attending Dr. Braun Undiagnosed new problem with uncertain prognosis? @ -No Drug Therapy requiring intensive monitoring for toxicity (Heparin, Nitro, Insulin, Cardizem)? @ -No Were any procedures done? @ -No Diagnosis/symptom? @ -Hypokalemia Acute, or Chronic, or Acute on Chronic? @ -Acute Uncomplicated (without systemic symptoms) or Complicated (systemic symptoms)? @ -complicated Side effects of treatment? @ -No Exacerbation, Progression, or Severe Exacerbation? @ -No Poses a threat to life or bodily function? How? (Chest pain, [place], [place], pneumonia, PE, COPD, DKA, ARF, appy, cholecystitis, CVA, Diverticulitis, Homicidal, Suicidal, threat to staff... and all critical care pts) @ -No - Lab Data Result diagrams: 09/04/22 14:27 09/04/22 14:27 Lab Results 09/04/22 09/04/22 09/04/22 Range/Units 14:27 14:27 14:27 WBC 8.3 (3.8-10.6) k/uL RBC 4.56 (3.80-5.40) m/uL Hgb 13.6 (11.4-16.0) gm/dL Hct 41.0 (34.0-46.0) % MCV 89.7 (80.0-100.0) fL MCH 29.9 (25.0-35.0) pg MCHC 33.3 (31.0-37.0) g/dL RDW 13.9 (11.5-15.5) % Plt Count 229 (150-450) k/uL MPV 9.2 Neutrophils % 63 % Lymphocytes % 21 % Monocytes % 8 % Eosinophils % 7 % Basophils % 1 % Neutrophils # 5.2 (1.3-7.7) k/uL Lymphocytes # 1.7 (1.0-4.8) k/uL Monocytes # 0.6 (0-1.0) k/uL Eosinophils # 0.6 (0-0.7) k/uL Basophils # 0.0 (0-0.2) k/uL Sodium 142 (137-145) mmol/L Potassium 2.8 L (3.5-5.1) mmol/L Chloride 101 (98-107) mmol/L Carbon Dioxide 30 (22-30) mmol/L Anion Gap 11 mmol/L BUN 14 (7-17) mg/dL Creatinine 0.84 (0.52-1.04) mg/dL Est GFR (CKD-EPI)AfAm 80 (>60 ml/min/1.73 sqM) Est GFR (CKD-EPI)NonAf 70 (>60 ml/min/1.73 sqM) Glucose 125 H (74-99) mg/dL Calcium 9.4 (8.4-10.2) mg/dL Magnesium 1.6 (1.6-2.3) mg/dL Total Bilirubin 0.5 (0.2-1.3) mg/dL AST 23 (14-36) U/L ALT 18 (4-34) U/L Alkaline Phosphatase 83 (38-126) U/L Total Protein 6.1 L (6.3-8.2) g/dL Albumin 4.0 (3.5-5.0) g/dL Urine Color Urine Appearance (Clear) Urine pH (5.0-8.0) Ur Specific [place] (1.001-1.035) Urine Protein (Negative) Urine Glucose (UA) (Negative) Urine Ketones (Negative) Urine Blood (Negative) Urine Nitrite (Negative) Urine Bilirubin (Negative) Urine Urobilinogen (<2.0) mg/dL Ur Leukocyte Esterase (Negative) Urine RBC (0-5) /hpf Urine WBC (0-5) /hpf Ur Squamous Epith Cells (0-4) /hpf Urine Bacteria (None) /hpf Hyaline Casts (0-2) /lpf Urine Mucus (None) /hpf 09/04/22 Range/Units 17:00 WBC (3.8-10.6) k/uL RBC (3.80-5.40) m/uL Hgb (11.4-16.0) gm/dL Hct (34.0-46.0) % MCV (80.0-100.0) fL MCH (25.0-35.0) pg MCHC (31.0-37.0) g/dL RDW (11.5-15.5) % Plt Count (150-450) k/uL MPV Neutrophils % % Lymphocytes % % Monocytes % % Eosinophils % % Basophils % % Neutrophils # (1.3-7.7) k/uL Lymphocytes # (1.0-4.8) k/uL Monocytes # (0-1.0) k/uL Eosinophils # (0-0.7) k/uL Basophils # (0-0.2) k/uL Sodium (137-145) mmol/L Potassium (3.5-5.1) mmol/L Chloride (98-107) mmol/L Carbon Dioxide (22-30) mmol/L Anion Gap mmol/L BUN (7-17) mg/dL Creatinine (0.52-1.04) mg/dL Est GFR (CKD-EPI)AfAm (>60 ml/min/1.73 sqM) Est GFR (CKD-EPI)NonAf (>60 ml/min/1.73 sqM) Glucose (74-99) mg/dL Calcium (8.4-10.2) mg/dL Magnesium (1.6-2.3) mg/dL Total Bilirubin (0.2-1.3) mg/dL AST (14-36) U/L ALT (4-34) U/L Alkaline Phosphatase (38-126) U/L Total Protein (6.3-8.2) g/dL Albumin (3.5-5.0) g/dL Urine Color Yellow Urine Appearance Clear (Clear) Urine pH 6.0 (5.0-8.0) Ur Specific [place] 1.029 (1.001-1.035) Urine Protein 1+ H (Negative) Urine Glucose (UA) Negative (Negative) Urine Ketones 1+ H (Negative) Urine Blood Moderate H (Negative) Urine Nitrite Negative (Negative) Urine Bilirubin Negative (Negative) Urine Urobilinogen <2.0 (<2.0) mg/dL Ur Leukocyte Esterase Large H (Negative) Urine RBC 6 H (0-5) /hpf Urine WBC 28 H (0-5) /hpf Ur Squamous Epith Cells 3 (0-4) /hpf Urine Bacteria Rare H (None) /hpf Hyaline Casts 3 H (0-2) /lpf Urine Mucus Rare H (None) /hpf - EKG Data -: EKG Interpreted by Me EKG Comments: Sinus tachycardia with frequent supraventricular premature complexes. Ventricular rate 100. MD interval 148. QRS 89. QT 365. QTc 422. No acute changes from previous EKG Disposition Clinical Impression: Hypokalemia Disposition: ADMITTED IP TO THIS HOSP Condition: Fair
[2022-09-04 14:43] LABS: Basophils % (A) 1 %; Eosinophils # (A) 0.6 k/uL (0-0.7); Eosinophils % (A) 7 %; HGB 13.6 gm/dL (11.4-16.0); Lymphocytes # (A) 1.7 k/uL (1.0-4.8); Lymphocytes % (A) 21 %; MCH 29.9 pg (25.0-35.0); MCHC 33.3 g/dL (31.0-37.0); MCV 89.7 fL (80.0-100.0); Mean Platelet Volume 9.2; Monocytes # (A) 0.6 k/uL (0-1.0); Monocytes % (A) 8 %; Neutrophils # (A) 5.2 k/uL (1.3-7.7); Neutrophils % (A) 63 %; Platelet Count 229 k/uL (150-450); RBC 4.56 m/uL (3.80-5.40); RDW 13.9 % (11.5-15.5); WBC 8.3 k/uL (3.8-10.6)
[2022-09-04 14:55] LABS: Calcium 9.4 mg/dL (8.4-10.2); Potassium 2.8 mmol/L (3.5-5.1); Total Bilirubin 0.5 mg/dL (0.2-1.3); Total Protein 6.1 g/dL (6.3-8.2)
[2022-09-04] MEDS ORDERED: POTASSIUM CHLORIDE ER 20 MEQ TAB.ER PO STA (15:05)
[2022-09-04] MEDS ORDERED: METOCLOPRAMIDE 5 MG/ML 2 ML VIAL IVP STA (15:10)
[2022-09-04] MEDS ORDERED: ACETAMINOPHEN TAB 500 MG TAB PO STA (16:26)
[2022-09-04 17:17] LABS: Appearance,Urine Clear (Clear); Bacteria,Urine Rare /hpf; Bilirubin,Urine Negative (Negative); Blood,Urine Moderate (Negative); Color,Urine Yellow; Glucose,Urine (UA) Negative (Negative); Hyaline Casts,Urine 3 /lpf (0-2); Ketones,Urine 1+ (Negative); Leukocyte Esterase,Urine Large (Negative); Mucus,Urine Rare /hpf; Nitrite,Urine Negative (Negative); Protein,Urine 1+ (Negative); RBC,Urine 6 /hpf (0-5); Specific Gravity,Urine 1.029 (1.001-1.035); Squamous Epithelial Cell,Urine 3 /hpf (0-4); Urobilinogen,Urine <2.0 mg/dL (<2.0); WBC,Urine 28 /hpf (0-5)
[2022-09-04] MEDS ORDERED: HYDROmorphone 0.5 MG/0.5 ML SYRINGE IVP STA (17:34)
[2022-09-04] MEDS ORDERED: Potassium Replacement Protocol 1 EACH MISC MISCELLANE PRN (18:13)
[2022-09-04] MEDS ORDERED: NALOXONE 0.4 MG/ML 1 ML VIAL IV PRN (18:17)
[2022-09-04] MEDS: SODIUM CHLORIDE 0.9% 1,000 ML IV SCH (19:28)
[2022-09-04] MEDS: POTASSIUM CHLORIDE 10 MEQ in WATER FOR INJECTION 1 100ML.BAG IVPB SCH ×4 (19:33→23:29)
[2022-09-04] MEDS: CIPROFLOXACIN HCL 500 MG TAB PO SCH (20:34)
[2022-09-04] MEDS ORDERED: PROMETHAZINE HCL 6.25 MG/5 ML CUP PO PRN (20:54)
[2022-09-04] MEDS ORDERED: MELATONIN 5 MG TABLET PO PRN (20:54)
[2022-09-04] MEDS ORDERED: methocarbamoL 500 MG TAB PO PRN (20:54)
[2022-09-04] MEDS ORDERED: BUTALB/APAP/CAFF 50-325-40MG TAB PO PRN (20:54)
[2022-09-04] MEDS: HYDROmorphone 0.5 MG/0.5 ML SYRINGE IVP PRN (21:28)
[2022-09-04] MEDS: busPIRone HCl 5 MG TAB PO SCH ×2 (21:29→22:41)
[2022-09-04] MEDS: ONDANSETRON 4 MG/2 ML VIAL IVP PRN (21:30)
[2022-09-04] MEDS: BRIMONIDINE TARTRATE 0.2% DROPS 5 ML BTL RIGHT EYE SCH (21:34)
[2022-09-04] MEDS: ATORVASTATIN 10 MG TAB PO SCH (22:41)
[2022-09-04] MEDS: GABAPENTIN 100 MG CAP PO SCH (22:41)
[2022-09-04] MEDS: HYDROCORTISONE 10 MG TAB PO SCH (22:41)
[2022-09-04] MEDS: METOPROLOL SUCCINATE (ER) 50 MG TAB.ER.24H PO SCH (22:41)
[2022-09-05] MEDS: POTASSIUM CHLORIDE 10 MEQ in WATER FOR INJECTION 1 100ML.BAG IVPB SCH ×6 (00:45→22:00)
[2022-09-05] MEDS: HYDROmorphone 0.5 MG/0.5 ML SYRINGE IVP PRN ×3 (00:45→06:51)
[2022-09-05] MEDS: ONDANSETRON 4 MG/2 ML VIAL IVP PRN ×3 (02:46→18:17)
[2022-09-05] MEDS: SODIUM CHLORIDE 0.9% 1,000 ML IV SCH ×2 (06:36→22:52)
[2022-09-05] MEDS: PANTOPRAZOLE 40 MG TABLET PO SCH ×2 (07:37→16:49)
[2022-09-05] MEDS: buPROPion SR 100 MG TABLET.ER PO SCH (09:00)
[2022-09-05] MEDS: HYDROCORTISONE 10 MG TAB PO SCH ×3 (09:00→20:54)
[2022-09-05] MEDS: hydroCHLOROthiazide 25 MG TAB PO SCH (09:00)
[2022-09-05 09:17] LABS: Magnesium 1.1 mg/dL (1.5-2.4)
[2022-09-05] MEDS: busPIRone HCl 5 MG TAB PO SCH ×2 (09:44→20:17)
[2022-09-05 09:50] LABS: Basophils # (A) 0.05 X 10*3/uL (0.00-0.10); Basophils % (A) 0.5 %; Eosinophils # (A) 0.64 X 10*3/uL (0.04-0.35); Eosinophils % (A) 6.6 %; HCT 35.6 % (37.2-46.3); HGB 11.2 g/dL (12.0-15.0); Immature Grans, Automated 0.7 %; Lymphocytes # (A) 1.39 X 10*3/uL (0.90-5.00); Lymphocytes % (A) 14.4 %; MCH 29.3 pg (27.0-32.0); MCHC 31.5 g/dL (32.0-37.0); MCV 93.2 fL (80.0-97.0); Mean Platelet Volume 11.7 fL (9.5-12.2); Monocytes # (A) 1.05 X 10*3/uL (0.20-1.00); Monocytes % (A) 10.9 %; NRBC Per 100 WBC 0 /100 WBCS (0.0-0.0); Neutrophils # (A) 6.45 X 10*3/uL (1.80-7.70); Neutrophils % (A) 66.9 %; Platelet Count 211 X 10*3/uL (140-440); RBC 3.82 X 10*6/uL (4.10-5.20); RDW 13.7 % (11.5-14.5); WBC 9.65 X 10*3/uL (4.50-10.00)
[2022-09-05] MEDS ORDERED: Magnesium Replacement Protocol 1 EACH MISC MISCELLANE PRN (09:53)
[2022-09-05 10:09] LABS: African American GFR (CKD) 105.5 (60.0-200.0); Albumin 2.5 g/dL (3.8-4.9); Albumin/Globulin Ratio 1.92 (1.60-3.17); Anion Gap 10.6 mmol/L (10.00-18.00); BUN/Creat Ratio 13.5 Ratio (12.00-20.00); Blood Urea Nitrogen 8.1 mg/dL (9.0-27.0); Carbon Dioxide 20.4 mmol/L (20.0-27.5); Globulin 1.3 g/dL (1.6-3.3); Non-African American GFR(CKD) 91.1 (60.0-200.0); Potassium 3.4 mmol/L (3.5-5.5); Total Bilirubin 0.2 mg/dL (0.30-1.20); Total Protein 3.8 g/dL (6.2-8.2)
[2022-09-05] MEDS ORDERED: CALCIUM CHLORIDE 1 GM in SODIUM CHLORIDE 0.9% 50 ML IVPB ONE (11:08)
[2022-09-05] MEDS: PROCHLORPERAZINE 10 MG TAB PO PRN ×2 (11:15→17:21)
[2022-09-05] MEDS ORDERED: MAGNESIUM SULFATE-D5W PMX 1 GM in DEXTROSE/WATER 1 100ML.BAG IVPB ONE (12:00)
[2022-09-05] MEDS ORDERED: CALCIUM GLUCONATE IN NACL 1 GM in SALINE 1 100ML.BAG IVPB ONE (12:00)
[2022-09-05 12:01] LABS: Glucose,Whole Blood 186 mg/dL (70-110)
--- NOTE | 2022-09-05 13:46 | P.HPIM ---
History of Present Illness H&P Date: 09/05/22 Chief Complaint: Nausea and pain History and Physical and Discharge Summary: This is 71-year-old female with past medical history of cervical radiculopathy with recent bone spur removal plus fusion of C4-5-6 [facility], June, chronic cystitis with history of MDR bacteria,adrenal insufficency, T2DM, migraine, chronic pain, and multiple other medical issues- recently admitted and discharged on 08/30/2022 with acute on chronic recurrent UTI Klebsiella pneumoniae and Enterobacter Cloacae with resistance, S/P Invanz, transitioned to oral cipro. Returned return to the ER with complaints of nausea, vomiting, chronic pain, and hypokalemia. Received electrolyte supplementation. Patient was asking for Dilaudid this morning on rounds, complaining of chronic left arm and neck pain. Patient informed she would return to [place] after initial order for 4 doses of Dilaudid completed. Reports it is "difficult for Rashid to take care of her at home like this." Subacute rehab offered and patient declined. Patient informed that she is observation and will be discharged home later today. Patient attempted to bargain for another day in the hospital, IV pain meds, and antiemetics. Patient again re-updated on the plan of care including discharge today, as patient does not meet criteria for inpatient hospitalization. T-max 99.1, WBC within normal limits. Potassium 3.4, BUN 8.1, creatinine 0.6, calcium decreased to 6 from 9.4, received 1 amp of calcium chloride, magnesium 1.6 decreased to 1.1-receiving supplementation. Review of Systems ROS Statement: Those systems with pertinent positive or pertinent negative responses have been documented in the HPI. ROS Other: All systems not noted in ROS Statement are negative. Past Medical History Past Medical History: Diabetes Mellitus, Deep Vein Thrombosis (DVT), Fibromyalgia, Hyperlipidemia, Hypertension, Osteoarthritis (OA), Pneumonia, Renal Disease, Sleep Apnea/CPAP/BIPAP, Vascular Disorder Additional Past Medical History / Comment(s): Pt recently admitted to [facility] with R flank pain. 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, DVT R calf in 1976, cardiac murmur, occipital neuraligia, balance issues-has narrowing of vessels "in the back of my head", vertigo, varicosities, states rt shoulder torn rotator cuff History of Any Multi-Drug Resistant Organisms: ESBL, MRSA, VRE Date of last positivie culture/infection: 11/25/20 ESBL;12/06/19 VRE; 03/10/11 MRSA MDRO Source:: Urine ESBL; Urine-VRE: MRSA 4th Right TOE Past Surgical History: Appendectomy, Back Surgery, Bladder Surgery, Breast S urgery, Cholecystectomy, Heart Catheterization, Hysterectomy, Orthopedic Surgery, Tonsillectomy Additional Past Surgical History / Comment(s): Lumbar fusions, bladder suspensi on, occipital nerve blocks, 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, R wrist/elbow nerve repair, bone removed R shoulder, 4th toe R foot partial amputation, bilateral feet/bunionectomies, R knee arthroscopies, R orbit decompression with ethmoidectomy and eyelid lift, EGD, colonoscopies, cystocopies, l ithotripsy/stents, bilateral breast reduction, bilateral cataract removals, parathyroid surgery - April 2019, pain clinic procedures Past Anesthesia/Blood Transfusion Reactions: No Reported Reaction Additional Past Anesthesia/Blood Transfusion Reaction / Comment(s): never recieved blood Past Psychological History: Depression Smoking Status: Never smoker Past Alcohol Use History: Occasional Past Drug Use History: None Reported - Past Family History Father Family Medical History: Coronary Artery Disease (CAD), CVA/TIA, Diabetes Mellitus, Myocardial Infarction (RI), Pneumonia Additional Family Medical History / Comment(s): Father at the age of 78yrs from RI and pneumonia. Mother Family Medical History: Cancer, Congestive Heart Failure (CHF) Additional Family Medical History / Comment(s): Mother had uterine cancer. She recently at the age of 96yrs old from shingles. Medications and Allergies Home Medications Medication Instructions Recorded Confirmed Type Meclizine [Antivert] 25 mg PO QID PRN 11/26/17 09/04/22 History Aspirin 81 mg PO DAILY #0 07/02/18 09/04/22 Rx Ferrous Sulfate [Iron (65 MG 325 mg PO DAILY 04/22/19 03/19/23 History Elemental)] Folic Acid 0.4 mg PO DAILY 10/08/18 09/04/22 History L.acidoph,Paracasei, B.lactis 2 cap PO BID 10/08/18 09/04/22 History [Probiotic] Melatonin 5 mg PO HS PRN 10/08/18 09/04/22 History Potassium 99 mg PO DAILY 10/08/18 09/04/22 History Thiamine [Vitamin B-1] 100 mg PO DAILY 10/08/18 09/04/22 History Vitamin B-Complex Drops 1 drop PO BID 10/08/18 09/04/22 History Gabapentin [Neurontin] 100 mg PO TID #9 cap 03/24/20 09/04/22 Rx C,E,Zinc,Copper 11/Mlyuz3c/Lut 1 cap PO DAILY 06/25/20 09/04/22 History [Ocuvite Adult 50 Plus Softgel] Cyanocobalamin (Vitamin B-12) 1,000 mcg PO DAILY 06/25/20 09/04/22 History [Vitamin B-12] Spironolactone 50 mg PO DAILY 06/25/20 09/04/22 History Vitamin E 400 unit PO DAILY 06/25/20 09/04/22 History Brimonidine Tartrate [Alphagan P 1 drop RIGHT EYE BID 11/26/20 09/04/22 History 0.2% Ophth Soln] Glucagon [Gvoke Pfs 1-Pack Syringe] 1 mg SQ ONCE PRN 11/26/20 09/04/22 History Pantoprazole Sodium [Protonix] 40 mg PO DAILY 11/26/20 09/04/22 History busPIRone HCl [Buspar] 5 mg PO BID 02/04/21 09/04/22 History Nystatin 1 applic TOPICAL BID PRN 02/17/21 09/04/22 History Insulin Aspart (For Pump) [NovoLOG 0.01 unit SQ-PUMP CONTINUOUS 03/03/21 09/04/22 History (For Pump)] Rosuvastatin Calcium [Crestor] 5 mg PO HS 08/15/21 09/04/22 History Cholecalciferol [Vitamin D3 (25 75 mcg PO DAILY 09/21/21 09/04/22 History Mcg = 1000 Iu)] Butalb/APAP/Caff 50-325-40Mg 1 tab PO Q6H PRN 05/25/22 09/04/22 History [Fioricet 50-325-40] Cranberry Fruit Extract [Cranberry] 1,000 mg PO DAILY 05/25/22 09/04/22 History Dorzolamide 2% [Trusopt 2%] 1 drop RIGHT EYE BID 05/25/22 09/04/22 History Magnesium Oxide [Magnesium] 500 mg PO DAILY 05/25/22 09/04/22 History Multivit-Min/Folic Acid/Gdo524 1 tab PO DAILY 05/25/22 09/04/22 History [Alive Premium Adult Multivit] Promethazine HCl [Phenergan Syrup] 6.25 mg PO Q6H PRN 05/25/22 09/04/22 History buPROPion HCL [Wellbutrin SR] 200 mg PO DAILY 05/25/22 09/04/22 History hydroCHLOROthiazide [Hydrodiuril] 25 mg PO DAILY 05/25/22 09/04/22 History Hydrocortisone [Cortef] 5 mg PO HS #0 05/30/22 09/04/22 Rx Hydrocortisone [Cortef] 10 mg PO DAILY@1200 #0 05/30/22 09/04/22 Rx Hydrocortisone [Cortef] 15 mg PO DAILY #0 05/30/22 09/04/22 Rx Ondansetron Odt [Zofran ODT] 8 mg PO Q8HR PRN #15 tab 07/04/22 09/04/22 Rx Metoclopramide [Reglan] 5 mg PO TID PRN 07/17/22 09/04/22 History lisinopriL [Zestril] 30 mg PO DAILY 07/17/22 09/04/22 History methocarbamoL [Methocarbamol] 1,000 mg PO Q6H PRN 07/17/22 09/04/22 History Diclofenac Sodium Gel [Voltaren 2 gm TOPICAL QID PRN 08/03/22 09/04/22 History Gel] Metoprolol Succinate (ER) [Toprol 50 mg PO HS #30 tab 08/29/22 09/04/22 Rx XL] Promethazine [Phenergan] 25 mg PO BID PRN #30 tab 08/29/22 09/04/22 Rx Ciprofloxacin HCl [Cipro] 500 mg PO BID 4 Days #7 tab 08/30/22 09/04/22 Rx HYDROcodone/APAP 10-325MG [[place] 1 tab PO Q4H PRN #12 tab 08/30/22 09/04/22 Rx 10-325] Cephalexin [Keflex] 250 mg PO DIRECTED 09/04/22 09/04/22 History Prochlorperazine [Compazine] 10 mg PO Q6HR PRN #20 tab 09/05/22 Rx Allergies Allergy/AdvReac Type Severity Reaction Status Date / Time butorphanol tartrate Allergy BLISTERS Verified 09/04/22 18:51 [From Stadol] IN MOUTH ceftriaxone [From Rocephin] Allergy Unknown Verified 09/04/22 18:51 clarithromycin [From Biaxin] Allergy Rash/Hives Verified 09/04/22 18:51 clindamycin Allergy Unknown Verified 09/04/22 18:51 codeine Allergy Rash/Hives Verified 09/04/22 18:51 ergotamine tartrate Allergy Unknown Verified 09/04/22 18:51 [From Cafergot] erythromycin base Allergy RASH, GI Verified 09/04/22 18:51 [From E-Mycin] SYMPTOMS ketorolac tromethamine Allergy Rash/Hives Verified 09/04/22 18:51 [From Toradol] liraglutide [From Victoza] Allergy Rash/Hives Verified 09/04/22 18:51 morphine Allergy Rash/Hives Verified 09/04/22 18:51 Penicillins Allergy Rash/Hives Verified 09/04/22 18:51 on upper body pentazocine lactate Allergy SEVERE Verified 09/04/22 18:51 [From Talwin] BLISTERS IN MOUTH pregabalin [From Lyrica] Allergy Rash/Hives Verified 09/04/22 18:51 propoxyphene HCl Allergy Rash/Hives Verified 09/04/22 18:51 [From Darvon] Sulfa (Sulfonamide Allergy Rash/Hives Verified 09/04/22 18:51 Antibiotics) tramadol Allergy Unknown Verified 09/04/22 18:51 vancomycin Allergy Swelling Verified 09/04/22 18:51 monosodium glutamate [MSG] AdvReac Nausea & Verified 09/04/22 18:51 Vomiting nalbuphine HCl [From Nubain] AdvReac Nausea & Verified 09/04/22 18:51 Vomiting Physical Exam Vitals: Vital Signs Temp Pulse Pulse Resp BP BP Pulse Ox 09/05/22 10:22 18 09/05/22 08:25 99.1 F 110 H 18 162/80 94 L 09/05/22 07:48 98.8 F 107 H 18 181/97 98 09/05/22 06:58 85 18 97 09/05/22 06:30 164/78 09/05/22 05:50 156/80 09/05/22 03:45 170/72 09/05/22 02:30 98.7 F 80 18 134/82 97 09/05/22 01:00 160/92 09/04/22 23:00 98 18 125/87 97 09/04/22 22:00 96 18 154/83 96 09/04/22 21:00 92 16 112/81 96 09/04/22 19:00 16 121/82 95 09/04/22 18:00 16 114/72 95 09/04/22 17:53 114 H 18 114/72 93 L 09/04/22 13:32 99.0 F 117 H 18 128/81 97 Intake and Output 09/04/22 09/05/22 09/05/22 22:59 06:59 14:59 Other: # Bowel Movements 1 - Exam General: Lying in bed, NAD. Vitals reviewed Eyes: PERRL, EOMI, conjunctivae normal HENT: normocephalic, mucus membranes moist Neck: supple, no JVD Lungs: normal respiratory effort, no wheezes or rales. CV: Regular rate and rhythm, no murmur. Peripheral pulses 2+. Abdomen: soft, nondistended, nontender, no organomegaly. No guarding, no rigidi ty, positive bowel sounds Skin: warm and dry. Neuro: A&Ox3, normal mood and affect normal. Results CBC & Chem 7: 09/05/22 05:53 09/05/22 05:19 Labs: Abnormal Lab Results - Last 24 Hours (Table) 09/04/22 09/04/22 09/05/22 Range/Units 14:27 17:00 05:19 RBC (4.10-5.20) X 10*6/uL Hgb (12.0-15.0) g/dL Hct (37.2-46.3) % MCHC (32.0-37.0) g/dL Immature Gran # (0.00-0.04) X 10*3/uL Monocytes # (0.20-1.00) X 10*3/uL Eosinophils # (0.04-0.35) X 10*3/uL Sodium 146 H (135-145) mmol/L Potassium 2.8 L 3.4 L (3.5-5.1) mmol/L Chloride 115 H (96-109) mmol/L BUN 8.1 L (9.0-27.0) mg/dL Glucose 125 H 112 H (74-99) mg/dL POC Glucose (mg/dL) (70-110) mg/dL Calcium 6.0 L* (8.7-10.3) mg/dL Magnesium 1.1 L (1.5-2.4) mg/dL Total Bilirubin 0.20 L (0.30-1.20) mg/dL Total Protein 6.1 L 3.8 L (6.3-8.2) g/dL Albumin 2.5 L (3.8-4.9) g/dL Globulin 1.3 L (1.6-3.3) g/dL Urine Protein 1+ H (Negative) Urine Ketones 1+ H (Negative) Urine Blood Moderate H (Negative) Ur Leukocyte Esterase Large H (Negative) Urine RBC 6 H (0-5) /hpf Urine WBC 28 H (0-5) /hpf Urine Bacteria Rare H (None) /hpf Hyaline Casts 3 H (0-2) /lpf Urine Mucus Rare H (None) /hpf 09/05/22 09/05/22 Range/Units 05:53 11:59 RBC 3.82 L (4.10-5.20) X 10*6/uL Hgb 11.2 L (12.0-15.0) g/dL Hct 35.6 L (37.2-46.3) % MCHC 31.5 L (32.0-37.0) g/dL Immature Gran # 0.07 H (0.00-0.04) X 10*3/uL Monocytes # 1.05 H (0.20-1.00) X 10*3/uL Eosinophils # 0.64 H (0.04-0.35) X 10*3/uL Sodium (135-145) mmol/L Potassium (3.5-5.1) mmol/L Chloride (96-109) mmol/L BUN (9.0-27.0) mg/dL Glucose (74-99) mg/dL POC Glucose (mg/dL) 186 H (70-110) mg/dL Calcium (8.7-10.3) mg/dL Magnesium (1.5-2.4) mg/dL Total Bilirubin (0.30-1.20) mg/dL Total Protein (6.3-8.2) g/dL Albumin (3.8-4.9) g/dL Globulin (1.6-3.3) g/dL Urine Protein (Negative) Urine Ketones (Negative) Urine Blood (Negative) Ur Leukocyte Esterase (Negative) Urine RBC (0-5) /hpf Urine WBC (0-5) /hpf Urine Bacteria (None) /hpf Hyaline Casts (0-2) /lpf Urine Mucus (None) /hpf Microbiology - Last 24 Hours (Table) 09/04/22 17:00 Urine Culture - Preliminary Urine,Voided Assessment and Plan Assessment: Hypokalemia, acute on chronic nausea, chronic pain Hypocalcemia Recent Acute on chronic recurrent UTI, Klebsiella pneumoniae and Enterobacter Cloacae with resistance, S/P Invanz, transitioned to oral cipro. Recent Anaphylactic reaction to vancomycin, swollen lips, airway stable, resolved. Recent Troponin leak, not suggestive of acute coronary syndrome as per cardiology. Suspect related to infection. Acute on Chronic nausea, suspect related to antibiotics, improved with antiemetics Chronic cervical radiculopathy, improved pain, recent fusion C4 C5 C6, June 2022 Chronic left shoulder pain ,patient reports since OR. Chronic migraines, reports unchanged from prior Covid, June 2021 Diabetes type 2 on insulin pump, hyperglycemic- steroid induced, A1c 8.7 Diabetic peripheral neuropathy CAD Thoracic aortic aneurysm, outpatient monitoring Hypertension Hyperlipidemia Osteoarthritis History of DVT Obstructive sleep apnea on CPAP at home History of nephrolithiasis Berkeley's disease /Adrenal insufficiency on hydrocortisone 3 times daily. 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 Plan: Continue on current medication regime ,monitoring and symptomatic treatment. Consistent carb/Brat Diet. Compazine will be admitted to antiemetics. Electrolyte supplementation. After discharge was placed, patient requesting subacute rehab. Patient will be discharged today to subacute rehab in a stable condition with guarded prognosis. Discharge Medication List Meclizine [Antivert] 25 mg PO QID PRN 11/26/17 [History] Aspirin 81 mg PO DAILY #0 07/02/18 [Rx] Ferrous Sulfate [Iron (65 MG Elemental)] 325 mg PO DAILY 10/08/18 [History] Folic Acid 0.4 mg PO DAILY 10/08/18 [History] L.acidoph,Paracasei, B.lactis [Probiotic] 2 cap PO BID 10/08/18 [History] Melatonin 5 mg PO HS PRN 10/08/18 [History] Potassium 99 mg PO DAILY 10/08/18 [History] Thiamine [Vitamin B-1] 100 mg PO DAILY 10/08/18 [History] Vitamin B-Complex Drops 1 drop PO BID 10/08/18 [History] Gabapentin [Neurontin] 100 mg PO TID #9 cap 03/24/20 [Rx] C,E,Zinc,Copper 11/Dspcp1l/Lut [Ocuvite Adult 50 Plus Softgel] 1 cap PO DAILY 06/25/20 [History] Cyanocobalamin (Vitamin B-12) [Vitamin B-12] 1,000 mcg PO DAILY 06/25/20 [History] Spironolactone 50 mg PO DAILY 06/25/20 [History] Vitamin E 400 unit PO DAILY 06/25/20 [History] Brimonidine Tartrate [Alphagan P 0.2% Ophth Soln] 1 drop RIGHT EYE BID 11/26/20 [History] Glucagon [Gvoke Pfs 1-Pack Syringe] 1 mg SQ ONCE PRN 11/26/20 [History] Pantoprazole Sodium [Protonix] 40 mg PO DAILY 11/26/20 [History] busPIRone HCl [Buspar] 5 mg PO BID 02/04/21 [History] Nystatin 1 applic TOPICAL BID PRN 02/17/21 [History] Insulin Aspart (For Pump) [NovoLOG (For Pump)] 0.01 unit SQ-PUMP CONTINUOUS 03/03/21 [History] Rosuvastatin Calcium [Crestor] 5 mg PO HS 08/15/21 [History] Cholecalciferol [Vitamin D3 (25 Mcg = 1000 Iu)] 75 mcg PO DAILY 09/21/21 [History] Butalb/APAP/Caff 50-325-40Mg [Fioricet 50-325-40] 1 tab PO Q6H PRN 05/25/22 [Hi story] Cranberry Fruit Extract [Cranberry] 1,000 mg PO DAILY 05/25/22 [History] Dorzolamide 2% [Trusopt 2%] 1 drop RIGHT EYE BID 05/25/22 [History] Magnesium Oxide [Magnesium] 500 mg PO DAILY 05/25/22 [History] Multivit-Min/Folic Acid/Puc996 [Alive Premium Adult Multivit] 1 tab PO DAILY 05/25/22 [History] Promethazine HCl [Phenergan Syrup] 6.25 mg PO Q6H PRN 05/25/22 [History] buPROPion HCL [Wellbutrin SR] 200 mg PO DAILY 05/25/22 [History] hydroCHLOROthiazide [Hydrodiuril] 25 mg PO DAILY 05/25/22 [History] Hydrocortisone [Cortef] 5 mg PO HS #0 05/30/22 [Rx] Hydrocortisone [Cortef] 10 mg PO DAILY@1200 #0 05/30/22 [Rx] Hydrocortisone [Cortef] 15 mg PO DAILY #0 05/30/22 [Rx] Ondansetron Odt [Zofran ODT] 8 mg PO Q8HR PRN #15 tab 07/04/22 [Rx] Metoclopramide [Reglan] 5 mg PO TID PRN 07/17/22 [History] lisinopriL [Zestril] 30 mg PO DAILY 07/17/22 [History] methocarbamoL [Methocarbamol] 1,000 mg PO Q6H PRN 07/17/22 [History] Diclofenac Sodium Gel [Voltaren Gel] 2 gm TOPICAL QID PRN 08/03/22 [History] Metoprolol Succinate (ER) [Toprol XL] 50 mg PO HS #30 tab 08/29/22 [Rx] Promethazine [Phenergan] 25 mg PO BID PRN #30 tab 08/29/22 [Rx] Ciprofloxacin HCl [Cipro] 500 mg PO BID 4 Days #7 tab 08/30/22 [Rx] HYDROcodone/APAP 10-325MG [[place] 10-325] 1 tab PO Q4H PRN #12 tab 08/30/22 [Rx] Cephalexin [Keflex] 250 mg PO DIRECTED 09/04/22 [History] Prochlorperazine [Compazine] 10 mg PO Q6HR PRN #20 tab 09/05/22 [Rx] The impression and plan of care has been dictated as directed. : I performed a history and examination of this patient, discussed the same with the dictator. I agree with the dictator's note ,documented as a scribe. Any additional findings or plans will be noted.
[2022-09-05] MEDS: HYDROcodone/APAP 10-325MG 1 EACH TAB PO PRN ×3 (14:14→22:24)
[2022-09-05] MEDS: lisinopriL 10 MG TAB PO SCH (16:48)
[2022-09-05] MEDS: SPIRONOLACTONE 25 MG TAB PO SCH (16:49)
[2022-09-05] MEDS: ASPIRIN 81 MG PO SCH (16:49)
[2022-09-05] MEDS: GABAPENTIN 100 MG CAP PO SCH ×3 (16:50→20:17)
[2022-09-05] MEDS: BRIMONIDINE TARTRATE 0.2% DROPS 5 ML BTL RIGHT EYE SCH ×2 (16:52→20:55)
[2022-09-05] MEDS: CIPROFLOXACIN HCL 500 MG TAB PO SCH ×2 (18:17→20:54)
[2022-09-05] MEDS: ATORVASTATIN 10 MG TAB PO SCH (20:17)
[2022-09-05] MEDS: METOPROLOL SUCCINATE (ER) 50 MG TAB.ER.24H PO SCH (20:17)
[2022-09-06] MEDS: HYDROcodone/APAP 10-325MG 1 EACH TAB PO PRN ×4 (02:34→15:02)
[2022-09-06] MEDS: ONDANSETRON 4 MG/2 ML VIAL IVP PRN ×2 (02:38→10:26)
[2022-09-06 07:14] VITALS: BP 153/58; PULSE 78; RESP 19; TEMP 98.2
[2022-09-06] MEDS: buPROPion SR 100 MG TABLET.ER PO SCH (10:08)
[2022-09-06] MEDS: lisinopriL 10 MG TAB PO SCH (10:10)
[2022-09-06] MEDS: ASPIRIN 81 MG PO SCH (10:11)
[2022-09-06] MEDS: HYDROCORTISONE 10 MG TAB PO SCH ×2 (10:11→12:26)
[2022-09-06] MEDS: SPIRONOLACTONE 25 MG TAB PO SCH (10:11)
[2022-09-06] MEDS: GABAPENTIN 100 MG CAP PO SCH (10:11)
[2022-09-06] MEDS: busPIRone HCl 5 MG TAB PO SCH (10:11)
[2022-09-06] MEDS: hydroCHLOROthiazide 25 MG TAB PO SCH (10:11)
[2022-09-06] MEDS: CIPROFLOXACIN HCL 500 MG TAB PO SCH (10:11)
[2022-09-06] MEDS: BRIMONIDINE TARTRATE 0.2% DROPS 5 ML BTL RIGHT EYE SCH (10:12)
[2022-09-06 11:49] LABS: Magnesium 1.5 mg/dL (1.5-2.4)
[2022-09-06 11:51] LABS: Potassium 4.5 mmol/L (3.5-5.5)
[2022-09-06] MEDS: SODIUM CHLORIDE 0.9% 1,000 ML IV SCH (13:26)
== END 2022-09-06 15:05 ==
LOC: EC 13:14 → 6NMEDSUR 18:17
PROVIDERS: ADMIT Family Medicine; ATTEND Family Medicine
DX: B96.1 Klebsiella pneumoniae [K. pneumoniae] as the cause of diseases classified elsewhere (principal); R11.2 Nausea with vomiting, unspecified; E87.6 Hypokalemia; R11.0 Nausea; G89.29 Other chronic pain; M25.512 Pain in left shoulder; E83.51 Hypocalcemia; N39.0 Urinary tract infection, site not specified; Z88.1 Allergy status to other antibiotic agents; M54.12 Radiculopathy, cervical region; Z98.1 Arthrodesis status; G43.909 Migraine, unspecified, not intractable, without status migrainosus; Z86.16 Personal history of COVID-19; E11.65 Type 2 diabetes mellitus with hyperglycemia; E11.42 Type 2 diabetes mellitus with diabetic polyneuropathy; Z79.4 Long term (current) use of insulin; Z96.41 Presence of insulin pump (external) (internal); I25.10 Atherosclerotic heart disease of native coronary artery without angina pectoris; I71.20 Thoracic aortic aneurysm, without rupture, unspecified; I10 Essential (primary) hypertension; E78.5 Hyperlipidemia, unspecified; M19.90 Unspecified osteoarthritis, unspecified site; Z86.718 Personal history of other venous thrombosis and embolism; G47.33 Obstructive sleep apnea (adult) (pediatric); Z87.442 Personal history of urinary calculi; M54.81 Occipital neuralgia; F32.A Depression, unspecified; Z86.14 Personal history of Methicillin resistant Staphylococcus aureus infection; E27.1 Primary adrenocortical insufficiency; Z79.899 Other long term (current) drug therapy
CPT/HCPCS: 96366 ×3; 96367; 96376 ×2; 96361; 96365; 96375; 99285; 36415; 93005; 97530 ×2; 97162; 97166; 80053 ×2; 83735 ×3; 84132; 85025 ×2; 81001; 87086; G0378 ×3; S0183; J2765; S0106; J2405 ×3; J1170 ×3; J3475; J3480 ×2; J0611

== ENCOUNTER → 2022-11-15 | Outpatient (CLI) | payer MEDICARE, BC ==
--- NOTE | 2022-11-15 16:00 | BD ---
EXAMINATION TYPE: Axial Bone Density DATE OF EXAM: 11/15/2022 CLINICAL HISTORY: 72 years old Female. ICD-10 CODE: M81.0 Age related osteoporosis, E55.9 vit. D def iciency Height: 60 Weight: 147.9 FRAX RISK QUESTIONS: Alcohol (3 or more units per day): no Family History (Parent hip fracture): no Glucocorticoids (More than 3mos): yes (Ex: prednisone, prednisolone, methylprednisolone, dexamethasone, and hydrocortisone). History of Fracture in Adulthood: yes Secondary Osteoporosis: 1. Type 1 Diabetes: no 2. Hyperthyroidism: no 3. Menopause before 45: yes 4. Malnutrition: no 5. Chronic liver disease: no Rheumatoid Arthritis: no Current Tobacco Use: no RISK FACTORS HISTORY OF: Surgery to Spine/Hip(right/left)/Wrist (right/left): yes Active: no Diet low in dairy products/other sources of calcium: no Postmenopausal woman: yes Lost more than 2 inches in height since high school: yes MEDICATIONS: Additional History: EXAM MEASUREMENTS: Bone mineral densitometry was performed using the [place] [facility] System. Bone mineral density about the R hip (g/cm2): 0.898 Bone mineral density about the L hip (g/cm2): 0.871 T Score values are as follows: -----R Neck: -1.9 -----L Neck: -2.0 -----R Total: -0.9 -----L Total: -1.1 Z Score values are as follows: -----R Neck: -0.1 -----L Neck: -0.2 -----R Total: 0.7 -----L Total: 0.5 Bone mineral density has: decreased -1.1 % since study of: 10.26.2020 Bone mineral density about the L Wrist (g/cm2): 0.621 T Score values are as follows: -----Dist. R+U: -2.2 -----Prox. R+U: 0.1 -----Radius total: -0.9 Z Score values are as follows: -----Dist. R+U: -0.1 -----Prox. R+U: 2.2 -----Radius total: 1.2 Bone mineral density has: decreased -0.8 % since study of: 5.10.2020 FRAX%s: The graph provided illustrates a 28.6% chance for a major osteoporotic fx and a 7.2% chance f or the hips probability for fx in 10 years time. IMPRESSION: Osteopenia (T Score between -2.5 and -1). There is slightly increased risk of fracture and the patient may be considered for treatment. Re-Screen 2-5 years. NOTE: T-SCORE=SD OF THE YOUNG ADULT MEAN.
== END | disposition home or self-care (01) ==
LOC: RADBDWWP 14:49
PROVIDERS: ATTEND Internal Medicine Endocrinology, Diabetes & Metabolism
DX: M85.89 Other specified disorders of bone density and structure, multiple sites (principal); M81.0 Age-related osteoporosis without current pathological fracture; E55.9 Vitamin D deficiency, unspecified; Z78.0 Asymptomatic menopausal state
CPT/HCPCS: 77080

== ENCOUNTER → 2023-01-27 | Outpatient (CLI) | payer MEDICARE, BC ==
[2023-01-27 16:15] LABS: ALT 19 U/L (8-44); AST 19 U/L (13-35); Blood Urea Nitrogen 28.9 mg/dL (9.0-27.0); Carbon Dioxide 25.9 mmol/L (21.6-31.8); Chloride 102 mmol/L (96-109); Potassium 4.5 mmol/L (3.5-5.5); Sodium 140 mmol/L (135-145)
[2023-01-27 18:35] LABS: Creatinine 24 Hour,Urine 1548.5 mg/24hr (800.0-1800.0)
[2023-01-28 22:03] LABS: Total Protein 24 Hour,Urine 233.1 mg/24Hr (0.0-165.0); Total Volume 24 Hour,Urine 1850 mL
== END | disposition home or self-care (01) ==
LOC: LABWHC1 10:01
PROVIDERS: ATTEND Internal Medicine Endocrinology, Diabetes & Metabolism
DX: E11.21 Type 2 diabetes mellitus with diabetic nephropathy (principal); E27.49 Other adrenocortical insufficiency; E87.8 Other disorders of electrolyte and fluid balance, not elsewhere classified
CPT/HCPCS: 36415; 80051; 81050; 82024; 82530; 82533; 82565; 82575; 84156; 84244; 84450; 84460; 84520

== ENCOUNTER 2023-01-29 21:11 | Emergency (ER) | payer MEDICARE, BC ==
[2023-01-29] MEDS ORDERED: ONDANSETRON 4 MG/2 ML VIAL IVP STA (22:30)
[2023-01-29] MEDS ORDERED: HYDROcodone/APAP 5-325MG 1 EACH TAB PO STA (22:34)
[2023-01-29 23:52] LABS: Basophils % (A) 0 %; Eosinophils # (A) 0.1 k/uL (0-0.7); Eosinophils % (A) 2 %; HGB 12.7 gm/dL (11.4-16.0); Lymphocytes # (A) 0.9 k/uL (1.0-4.8); Lymphocytes % (A) 14 %; MCH 29.2 pg (25.0-35.0); MCHC 32.7 g/dL (31.0-37.0); MCV 89.2 fL (80.0-100.0); Mean Platelet Volume 8.5; Monocytes # (A) 0.5 k/uL (0-1.0); Monocytes % (A) 8 %; Neutrophils # (A) 4.7 k/uL (1.3-7.7); Neutrophils % (A) 74 %; Platelet Count 162 k/uL (150-450); RBC 4.37 m/uL (3.80-5.40); RDW 15.4 % (11.5-15.5); WBC 6.3 k/uL (3.8-10.6)
--- NOTE | 2023-01-30 00:40 | XR ---
EXAM: XR Chest, 2 Views CLINICAL HISTORY: ITS.REASON XR Reason: fever TECHNIQUE: Frontal and lateral views of the chest. COMPARISON: No relevant prior studies available. FINDINGS: Lungs: Mild pulmonary vascular congestion. Pleural space: Unremarkable. No pneumothorax. Heart: Cardiomegaly. Mediastinum: Unremarkable. Bones/joints: Unremarkable. Other findings: ACDF. IMPRESSION: Mild pulmonary vascular congestion.
[2023-01-30 00:41] LABS: ALT 27 U/L (4-34); AST 33 U/L (14-36); African American GFR (CKD) 63 (>60 ml/min/1.73 sqM); Alkaline Phosphatase 87 U/L (38-126); Blood Urea Nitrogen 17 mg/dL (7-17); Calcium 8.4 mg/dL (8.4-10.2); Carbon Dioxide 24 mmol/L (22-30); Glucose 98 mg/dL (74-99); Non-African American GFR(CKD) 55 (>60 ml/min/1.73 sqM); Total Bilirubin 0.4 mg/dL (0.2-1.3)
[2023-01-30] MEDS ORDERED: HYDROmorphone 0.5 MG/0.5 ML SYRINGE IVP STA (02:03)
[2023-01-30 03:07] LABS: Appearance,Urine Clear (Clear); Bilirubin,Urine Negative (Negative); Blood,Urine Negative (Negative); Color,Urine Yellow; Glucose,Urine (UA) Negative (Negative); Hyaline Casts,Urine 1 /lpf (0-2); Ketones,Urine 1+ (Negative); Leukocyte Esterase,Urine Negative (Negative); Mucus,Urine Rare /hpf; Nitrite,Urine Negative (Negative); PH, Urine 5.5 (5.0-8.0); Protein,Urine 1+ (Negative); RBC,Urine <1 /hpf (0-5); Specific Gravity,Urine 1.018 (1.001-1.035); Squamous Epithelial Cell,Urine <1 /hpf (0-4); Urobilinogen,Urine <2.0 mg/dL (<2.0); WBC,Urine 5 /hpf (0-5)
--- NOTE | 2023-01-30 03:19 | ED ---
Fever HPI - General Chief Complaint: Fever Stated Complaint: Fever Time Seen by Provider: 01/29/23 21:49 Source: patient, EMS Mode of arrival: EMS Limitations: no limitations - History of Present Illness Initial Comments: This patient is 72-year-old woman who presents to have evaluation of generalized weakness, fatigue, fever and chills and mild cough going back approximately one day. The patient denies dyspnea. No change in urination or bowel movements. No rash. MD Complaint: fever, weakness Onset/Timin -: days(s) Temperature Source: subjective Associated Symptoms: myalgias, cough Treatments Prior to Arrival: none - Related Data Home Medications Medication Instructions Recorded Confirmed Meclizine [Antivert] 25 mg PO QID PRN 11/26/17 09/04/22 Ferrous Sulfate [Iron (65 MG 325 mg PO DAILY 10/08/18 09/04/22 Elemental)] Folic Acid 0.4 mg PO DAILY 10/08/18 09/04/22 L.acidoph,Paracasei, B.lactis 2 cap PO BID 10/08/18 09/04/22 [Probiotic] Melatonin 5 mg PO HS PRN 10/08/18 09/04/22 Potassium 99 mg PO DAILY 10/08/18 09/04/22 Thiamine [Vitamin B-1] 100 mg PO DAILY 10/08/18 09/04/22 Vitamin B-Complex Drops 1 drop PO BID 10/08/18 09/04/22 C,E,Zinc,Copper 11/Zybuh9d/Lut 1 cap PO DAILY 06/25/20 09/04/22 [Ocuvite Adult 50 Plus Softgel] Cyanocobalamin (Vitamin B-12) 1,000 mcg PO DAILY 06/25/20 09/04/22 [Vitamin B-12] Spironolactone 50 mg PO DAILY 06/25/20 09/04/22 Vitamin E 400 unit PO DAILY 06/25/20 09/04/22 Brimonidine Tartrate [Alphagan P 1 drop RIGHT EYE BID 11/26/20 09/04/22 0.2% Ophth Soln] Glucagon [Gvoke Pfs 1-Pack Syringe] 1 mg SQ ONCE PRN 11/26/20 09/04/22 Pantoprazole Sodium [Protonix] 40 mg PO DAILY 11/26/20 09/04/22 busPIRone HCl [Buspar] 5 mg PO BID 02/04/21 09/04/22 Nystatin 1 applic TOPICAL BID PRN 02/17/21 09/04/22 Insulin Aspart (For Pump) [NovoLOG 0.01 unit SQ-PUMP CONTINUOUS 03/03/21 09/04/22 (For Pump)] Rosuvastatin Calcium [Crestor] 5 mg PO HS 08/15/21 09/04/22 Cholecalciferol [Vitamin D3 (25 75 mcg PO DAILY 09/21/21 09/04/22 Mcg = 1000 Iu)] Cranberry Fruit Extract [Cranberry] 1,000 mg PO DAILY 05/25/22 09/04/22 Dorzolamide 2% [Trusopt 2%] 1 drop RIGHT EYE BID 05/25/22 09/04/22 Magnesium Oxide [Magnesium] 500 mg PO DAILY 05/25/22 09/04/22 Multivit-Min/Folic Acid/[id number] 1 tab PO DAILY 05/25/22 09/04/22 [Alive Premium Adult Multivit] Promethazine HCl [Phenergan Syrup] 6.25 mg PO Q6H PRN 05/25/22 09/04/22 buPROPion HCL [Wellbutrin SR] 200 mg PO DAILY 05/25/22 09/04/22 hydroCHLOROthiazide [Hydrodiuril] 25 mg PO DAILY 05/25/22 09/04/22 Metoclopramide [Reglan] 5 mg PO TID PRN 07/17/22 09/04/22 lisinopriL [Zestril] 30 mg PO DAILY 07/17/22 09/04/22 methocarbamoL [Methocarbamol] 1,000 mg PO Q6H PRN 07/17/22 09/04/22 Diclofenac Sodium Gel [Voltaren 2 gm TOPICAL QID PRN 08/03/22 09/04/22 Gel] Cephalexin [Keflex] 250 mg PO DIRECTED 09/04/22 09/04/22 Previous Rx's Medication Instructions Recorded Aspirin 81 mg PO DAILY #0 07/02/18 Hydrocortisone [Cortef] 5 mg PO HS #0 05/30/22 Hydrocortisone [Cortef] 10 mg PO DAILY@1200 #0 05/30/22 Hydrocortisone [Cortef] 15 mg PO DAILY #0 05/30/22 Ondansetron Odt [Zofran ODT] 8 mg PO Q8HR PRN #15 tab 07/04/22 Metoprolol Succinate (ER) [Toprol 50 mg PO HS #30 tab 08/29/22 XL] Promethazine [Phenergan] 25 mg PO BID PRN #30 tab 08/29/22 Ciprofloxacin HCl [Cipro] 500 mg PO BID 4 Days #7 tab 08/30/22 Prochlorperazine [Compazine] 10 mg PO Q6HR PRN #20 tab 09/05/22 Butalb/APAP/Caff 50-325-40Mg 1 tab PO Q6H PRN #12 tab 09/06/22 [Fioricet 50-325-40] Gabapentin [Neurontin] 100 mg PO TID #9 cap 09/06/22 HYDROcodone/APAP 10-325MG [[place] 1 tab PO Q4H PRN #12 tab 09/06/22 10-325] Nirmatrelvir/Ritonavir [Paxlovid 1 each PO ONCE #1 pack 01/30/23 2X150 mg-100 mg (Eua)] Allergies Allergy/AdvReac Type Severity Reaction Status Date / Time butorphanol tartrate Allergy BLISTERS Verified 01/29/23 21:21 [From Stadol] IN MOUTH ceftriaxone [From Rocephin] Allergy Unknown Verified 01/29/23 21:21 clarithromycin [From Biaxin] Allergy Rash/Hives Verified 01/29/23 21:21 clindamycin Allergy Unknown Verified 01/29/23 21:21 codeine Allergy Rash/Hives Verified 01/29/23 21:21 ergotamine tartrate Allergy Unknown Verified 01/29/23 21:21 [From Cafergot] erythromycin base Allergy RASH, GI Verified 01/29/23 21:21 [From E-Mycin] SYMPTOMS ketorolac tromethamine Allergy Rash/Hives Verified 01/29/23 21:21 [From Toradol] liraglutide [From Victoza] Allergy Rash/Hives Verified 01/29/23 21:21 morphine Allergy Rash/Hives Verified 01/29/23 21:21 Penicillins Allergy Rash/Hives Verified 01/29/23 21:21 on upper body pentazocine lactate Allergy SEVERE Verified 01/29/23 21:21 [From Talwin] BLISTERS IN MOUTH pregabalin [From Lyrica] Allergy Rash/Hives Verified 01/29/23 21:21 propoxyphene HCl Allergy Rash/Hives Verified 01/29/23 21:21 [From Darvon] Sulfa (Sulfonamide Allergy Rash/Hives Verified 01/29/23 21:21 Antibiotics) tramadol Allergy Unknown Verified 01/29/23 21:21 vancomycin Allergy Swelling Verified 01/29/23 21:21 monosodium glutamate [MSG] AdvReac Nausea & Verified 01/29/23 21:21 Vomiting nalbuphine HCl [From Nubain] AdvReac Nausea & Verified 01/29/23 21:21 Vomiting Review of Systems ROS Statement: Those systems with pertinent positive or pertinent negative responses have been documented in the HPI. ROS Other: All systems not noted in ROS Statement are negative. Constitutional: Reports: fever, weakness ENT: Reports: congestion. Denies: ear pain, throat pain Respiratory: Reports: cough. Denies: dyspnea, wheezes, hemoptysis Cardiovascular: Denies: chest pain, palpitations, edema, syncope Gastrointestinal: Denies: abdominal pain, nausea, vomiting, diarrhea Genitourinary: Denies: dysuria, frequency, hematuria Musculoskeletal: Reports: myalgia Skin: Denies: rash Neurological: Denies: headache, weakness, numbness Past Medical History Past Medical History: Diabetes Mellitus, Deep Vein Thrombosis (DVT), Fibromyalgi a, Hyperlipidemia, Hypertension, Osteoarthritis (OA), Pneumonia, Renal Disease, Sleep Apnea/CPAP/BIPAP, Vascular Disorder Additional Past Medical History / Comment(s): Pt recently admitted to [facility] with R flank pain. 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, DVT R calf in 1976, cardiac murmur, occipital neuraligia, balance issues-has narrowing of vessels "in the back of my head", vertigo, varicosities, states rt shoulder torn rotator cuff History of Any Multi-Drug Resistant Organisms: ESBL, MRSA, VRE Date of last positivie culture/infection: 11/25/20 ESBL;12/06/19 VRE; 03/10/11 MRSA MDRO Source:: Urine ESBL; Urine-VRE: MRSA 4th Right TOE Past Surgical History: Appendectomy, Back Surgery, Bladder Surgery, Breast Surgery, Cholecystectomy, Heart Catheterization, Hysterectomy, Orthopedic Surgery, Tonsillectomy Additional Past Surgical History / Comment(s): Lumbar fusions, bladder suspension, occipital nerve blocks, 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, R wrist/elbow nerve repair, bone removed R shoulder, 4th toe R foot partial amputation, bilateral feet/bunionectomies, R knee arthroscopies, R orbit decompression with ethmoidectomy and eyelid lift, EGD, colonoscopies, cystocopies, lithotripsy/stents, bilateral breast reduction, bilateral cataract removals, parathyroid surgery - April 2019, pain clinic procedures Past Anesthesia/Blood Transfusion Reactions: No Reported Reaction Additional Past Anesthesia/Blood Transfusion Reaction / Comment(s): never rec ieved blood Past Psychological History: Depression Smoking Status: Never smoker Past Alcohol Use History: Occasional Past Drug Use History: None Reported - Past Family History Father Family Medical History: Coronary Artery Disease (CAD), CVA/TIA, Diabetes Mellitus, Myocardial Infarction (AK), Pneumonia Additional Family Medical History / Comment(s): Father at the age of 78yrs from [place] and pneumonia. Mother Family Medical History: Cancer, Congestive Heart Failure (CHF) Additional Family Medical History / Comment(s): Mother had uterine cancer. She recently at the age of 96yrs old from shingles. General Exam Limitations: no limitations General appearance: alert, in no apparent distress Head exam: Present: atraumatic, normocephalic Eye exam: Present: normal appearance. Absent: scleral icterus, conjunctival injection ENT exam: Present: normal oropharynx Neck exam: Present: normal inspection, full ROM. Absent: meningismus Respiratory exam: Present: normal lung sounds bilaterally. Absent: respiratory distress, wheezes, rales, rhonchi, stridor Cardiovascular Exam: Present: regular rate, normal rhythm, normal heart sounds. Absent: systolic murmur, diastolic murmur, rubs, gallop GI/Abdominal exam: Present: soft. Absent: distended, tenderness, guarding, rebound, rigid, mass Extremities exam: Present: normal inspection, normal capillary refill. Absent: pedal edema, calf tenderness Back exam: Present: normal inspection. Absent: CVA tenderness (R), CVA tenderness (L) Neurological exam: Present: alert Skin exam: Present: warm, dry, intact, normal color. Absent: rash Course Vital Signs 01/29/23 01/29/23 01/29/23 21:17 22:00 23:00 Temperature 99.8 F H Pulse Rate 100 97 86 Respiratory 16 22 22 Rate Blood Pressure 173/92 141/88 O2 Sat by Pulse 99 95 94 L Oximetry 01/30/23 01/30/23 01/30/23 00:00 00:16 01:00 Temperature Pulse Rate 108 H 107 H 96 Respiratory 22 22 22 Rate Blood Pressure 154/77 124/72 124/72 O2 Sat by Pulse 94 L 94 L 94 L Oximetry 01/30/23 01/30/23 02:00 03:49 Temperature 98.9 F Pulse Rate 88 70 Respiratory 20 16 Rate Blood Pressure 112/61 120/61 O2 Sat by Pulse 94 L 93 L Oximetry Medical Decision Making - Medical Decision Making Patient had chest x-ray which I interpreted as being negative for acute infiltrate, congestive heart failure, pneumothorax. Was pt. sent in by a medical professional or institution (, PA, MACHINERY DISMANTLER, urgent care, hospital, or assisted...) When possible be specific @ -[No] Did you speak to anyone other than the patient for history (EMS, parent, family, police, friend...)? What history was obtained from this source @ -[The patient's contributed history Did you review nursing and triage notes (agree or disagree)? Why? @ -[I reviewed and agree with nursing and triage notes] Were old charts reviewed (outside hosp., previous admission, EMS record, old EKG, old radiological studies, urgent care reports/EKG's, assisted records)? Report findings @ -[No old charts were reviewed] Differential Diagnosis (chest pain, altered mental status, abdominal pain women, abdominal pain men, vaginal bleeding, weakness, fever, dyspnea, syncope, headache, dizziness, GI bleed, back pain, seizure, CVA, palpatations, mental health, musculoskeletal)? @ -[Differential Fever: Pneumonia, viral syndrome, endocarditis, myocarditis, pericarditis, otitis, sinusitis, peritonsillar Abscess, retropharyngeal Abscess, epiglottitis, peritonitis, appendicitis, Chhaya cystitis, diverticulitis, hepatitis, colitis, UTI, PID, TOA, pyelonephritis, prostatitis, epididymitis, meningitis, encephalitis, pulmonary embolism, CVA, thyroid storm, pancreatitis, adrenal crisis, cavernous sinus thrombosis, this is not meant to be an all-inclusive list. EKG interpreted by me (3pts min.). @ -[ X-rays interpreted by me (1pt min.). @ -[I interpreted as above CT interpreted by me (1pt min.). @ -[None done] U/S interpreted by me (1pt. min.). @ -[None done] What testing was considered but not performed or refused? (CT, X-rays, U/S, labs)? Why? @ -[None] What meds were considered but not given or refused? Why? @ -[None] Did you discuss the management of the patient with other professionals (professionals i.e. , PA, MACHINERY DISMANTLER, lab, RT, psych nurse, social security assessor, quality improvement coordinator (rn), teacher, program officer, immigration case worker)? Give summary @ -[No] Was smoking cessation discussed for >3mins.? @ -[No] Was critical care preformed (if so, how long)? @ -[No] Were there social determinants of health that impacted care today? How? (Homelessness, low income, unemployed, alcoholism, drug addiction, transportation, low edu. Level, literacy, decrease access to med. care, fpc, rehab)? @ -[No] Was there de-escalation of care discussed even if they declined (Discuss DNR or withdrawal of care, Hospice)? DNR status @ -[No] What co-morbidities impacted this encounter? (DM, HTN, Smoking, COPD, CAD, Cancer, CVA, ARF, Chemo, Hep., AIDS, mental health diagnosis, sleep apnea, morbid obesity)? @ -[None] Was patient admitted / discharged? Hospital course, mention meds given and route, prescriptions, significant lab abnormalities, going to OR and other pertinent info. @ -[The patient had lab evaluation which does show COVID-19 infection. She had good oxygen saturations. The patient was able ambulate to the bathroom. At this point stable for discharge. Return parameters and appropriate follow-up were discussed. Undiagnosed new problem with uncertain prognosis? @ -[No] Drug Therapy requiring intensive monitoring for toxicity (Heparin, Nitro, Insulin, Cardizem)? @ -[No] Were any procedures done? @ -[No] Diagnosis/symptom? @ -[Acute COVID-19 infection Acute, or Chronic, or Acute on Chronic? @ -[default] Uncomplicated (without systemic symptoms) or Complicated (systemic symptoms)? @ -[Uncomplicated Side effects of treatment? @ -[No] Exacerbation, Progression, or Severe Exacerbation? @ -[No] Poses a threat to life or bodily function? How? (Chest pain, [place], [place], pneumonia, PE, COPD, DKA, ARF, appy, cholecystitis, CVA, Diverticulitis, Homicidal, Suicidal, threat to staff... and all critical care pts) @ -[No] - Lab Data Result diagrams: 01/29/23 23:16 01/29/23 23:16 Lab Results 01/29/23 01/29/23 01/29/23 Range/Units 23:01 23:16 23:16 WBC 6.3 (3.8-10.6) k/uL RBC 4.37 (3.80-5.40) m/uL Hgb 12.7 (11.4-16.0) gm/dL Hct 39.0 (34.0-46.0) % MCV 89.2 (80.0-100.0) fL MCH 29.2 (25.0-35.0) pg MCHC 32.7 (31.0-37.0) g/dL RDW 15.4 (11.5-15.5) % Plt Count 162 (150-450) k/uL MPV 8.5 Neutrophils % 74 % Lymphocytes % 14 % Monocytes % 8 % Eosinophils % 2 % Basophils % 0 % Neutrophils # 4.7 (1.3-7.7) k/uL Lymphocytes # 0.9 L (1.0-4.8) k/uL Monocytes # 0.5 (0-1.0) k/uL Eosinophils # 0.1 (0-0.7) k/uL Basophils # 0.0 (0-0.2) k/uL Sodium 130 L (137-145) mmol/L Potassium 4.2 (3.5-5.1) mmol/L Chloride 95 L (98-107) mmol/L Carbon Dioxide 24 (22-30) mmol/L Anion Gap 11 mmol/L BUN 17 (7-17) mg/dL Creatinine 1.02 (0.52-1.04) mg/dL Est GFR (CKD-EPI)AfAm 63 (>60 ml/min/1.73 sqM) Est GFR (CKD-EPI)NonAf 55 (>60 ml/min/1.73 sqM) Glucose 98 (74-99) mg/dL Plasma Lactic Acid Sudhir (0.7-2.0) mmol/L Calcium 8.4 (8.4-10.2) mg/dL Total Bilirubin 0.4 (0.2-1.3) mg/dL AST 33 (14-36) U/L ALT 27 (4-34) U/L Alkaline Phosphatase 87 (38-126) U/L Total Protein 6.0 L (6.3-8.2) g/dL Albumin 3.6 (3.5-5.0) g/dL Urine Color Urine Appearance (Clear) Urine pH (5.0-8.0) Ur Specific [place] (1.001-1.035) Urine Protein (Negative) Urine Glucose (UA) (Negative) Urine Ketones (Negative) Urine Blood (Negative) Urine Nitrite (Negative) Urine Bilirubin (Negative) Urine Urobilinogen (<2.0) mg/dL Ur Leukocyte Esterase (Negative) Urine RBC (0-5) /hpf Urine WBC (0-5) /hpf Ur Squamous Epith Cells (0-4) /hpf Hyaline Casts (0-2) /lpf Urine Mucus (None) /hpf Coronavirus (PCR) Detected A (Not Detectd) 01/29/23 01/30/23 Range/Units 23:16 02:48 WBC (3.8-10.6) k/uL RBC (3.80-5.40) m/uL Hgb (11.4-16.0) gm/dL Hct (34.0-46.0) % MCV (80.0-100.0) fL MCH (25.0-35.0) pg MCHC (31.0-37.0) g/dL RDW (11.5-15.5) % Plt Count (150-450) k/uL MPV Neutrophils % % Lymphocytes % % Monocytes % % Eosinophils % % Basophils % % Neutrophils # (1.3-7.7) k/uL Lymphocytes # (1.0-4.8) k/uL Monocytes # (0-1.0) k/uL Eosinophils # (0-0.7) k/uL Basophils # (0-0.2) k/uL Sodium (137-145) mmol/L Potassium (3.5-5.1) mmol/L Chloride (98-107) mmol/L Carbon Dioxide (22-30) mmol/L Anion Gap mmol/L BUN (7-17) mg/dL Creatinine (0.52-1.04) mg/dL Est GFR (CKD-EPI)AfAm (>60 ml/min/1.73 sqM) Est GFR (CKD-EPI)NonAf (>60 ml/min/1.73 sqM) Glucose (74-99) mg/dL Plasma Lactic Acid Sudhir 0.9 (0.7-2.0) mmol/L Calcium (8.4-10.2) mg/dL Total Bilirubin (0.2-1.3) mg/dL AST (14-36) U/L ALT (4-34) U/L Alkaline Phosphatase (38-126) U/L Total Protein (6.3-8.2) g/dL Albumin (3.5-5.0) g/dL Urine Color Yellow Urine Appearance Clear (Clear) Urine pH 5.5 (5.0-8.0) Ur Specific [place] 1.018 (1.001-1.035) Urine Protein 1+ H (Negative) Urine Glucose (UA) Negative (Negative) Urine Ketones 1+ H (Negative) Urine Blood Negative (Negative) Urine Nitrite Negative (Negative) Urine Bilirubin Negative (Negative) Urine Urobilinogen <2.0 (<2.0) mg/dL Ur Leukocyte Esterase Negative (Negative) Urine RBC <1 (0-5) /hpf Urine WBC 5 (0-5) /hpf Ur Squamous Epith Cells <1 (0-4) /hpf Hyaline Casts 1 (0-2) /lpf Urine Mucus Rare H (None) /hpf Coronavirus (PCR) (Not Detectd) Disposition Clinical Impression: COVID-19 Disposition: HOME SELF-CARE Condition: Good Instructions (If sedation given, give patient instructions): COVID-19 (Coronavirus Disease 2019) (ED) Prescriptions: Nirmatrelvir/Ritonavir [Paxlovid 2X150 mg-100 mg (Eua)] 1 each PO ONCE #1 pack Is patient prescribed a controlled substance at d/c from ED?: No Referrals: Andrew Gonsales MD [Primary Care Provider] - 1-2 days
[2023-01-30 03:51] VITALS: BP 120/61; PULSE 70; RESP 16; TEMP 98.9
[2023-01-30 06:50] LABS: Albumin 3.6 g/dL (3.5-5.0); Anion Gap 11 mmol/L; Chloride 95 mmol/L (98-107); Potassium 4.2 mmol/L (3.5-5.1); Sodium 130 mmol/L (137-145)
== END 2023-01-30 03:51 | disposition home or self-care (01) ==
LOC: EC 21:11
DX: U07.1 COVID-19 (principal); E11.9 Type 2 diabetes mellitus without complications; E78.5 Hyperlipidemia, unspecified; I10 Essential (primary) hypertension; G47.30 Sleep apnea, unspecified; F32.A Depression, unspecified; Z79.899 Other long term (current) drug therapy; Z79.4 Long term (current) use of insulin; Z88.1 Allergy status to other antibiotic agents; Z88.2 Allergy status to sulfonamides; Z88.0 Allergy status to penicillin; Z88.5 Allergy status to narcotic agent; Z88.8 Allergy status to other drugs, medicaments and biological substances
CPT/HCPCS: 36415; 80053; 83605; 85025; 81001; 87040; 87635; 71046; 99284; 96374; 96375; J2405; J1170

== ENCOUNTER → 2023-02-16 | Outpatient (CLI) | payer MEDICARE, BC ==
--- NOTE | 2023-02-19 23:49 | MM ---
Reason for Exam: Screening (asymptomatic). Last screening mammogram was performed 12 month(s) ago. Patient History: Menarche at age 10. First Full-Term at age 21. Left ovary removed at age 28. Right ovary removed at age 28. Hysterectomy at age 27. Postmenopausal. Estrogen for 30 years from age 27 until age 58. 09/2009, Bilateral Reduction. Paternal cousin had breast cancer, age 60. Paternal cousin had breast cancer, age 60. Risk Values: Carolyne 5 year model risk: 1.7%. NCI Lifetime model risk: 4.3%. Prior Study Comparison: 06/27/2019 Bilateral Screening Mammogram, [facility]. 10/21/2020 Bilateral Screening Mammogram, [facility]. 01/19/2022 Bilateral MG 3D screening mammo w/cad, [facility]. Tissue Density: There are scattered fibroglandular densities. Findings: Analyzed By CAD. Benign bilateral oil cyst calcifications. Chronic nodularity posteriorly on the right. There is no suspicious group of microcalcifications or new suspicious mass in either breast. Overall Assessment: Benign, BI-RAD 2 Management: Screening Mammogram of both breasts in 1 year. . Patient should continue monthly self-breast exams. A clinical breast exam by your physician is recommended on an annual basis. This exam should not preclude additional follow-up of suspicious palpable abnormalities. Note on Carolyne scores and lifetime risk: 1. A Carolyne score greater than 3% is considered moderate risk. If this is the case, consider specialist referral to assess eligibility for a risk reducing agent. 2. If overall lifetime risk for the development of breast cancer is 20% or higher, the patient may qualify for future screening with alternating mammogram and breast MRI. Electronically signed and approved by: David Murillo M.D. Radiologist
== END | disposition home or self-care (01) ==
LOC: RADMAMWWP 10:48
PROVIDERS: ATTEND Family Medicine
DX: Z12.31 Encounter for screening mammogram for malignant neoplasm of breast (principal); Z78.0 Asymptomatic menopausal state; Z80.3 Family history of malignant neoplasm of breast
CPT/HCPCS: 77063; 77067

== ENCOUNTER 2023-04-14 11:56 | Emergency (ER) | payer MEDICARE, BC ==
--- NOTE | 2023-04-14 12:23 | ED ---
General Adult HPI - General Source: RN notes reviewed <Esther Caraballo - Last Filed: 04/14/23 12:22> <Miguel Burkett - Last Filed: 04/24/23 07:29> - General Stated complaint: groin,abdo pain Time Seen by Provider: 04/14/23 12:22 - History of Present Illness Initial comments: 72-year-old female presents to the emergency department with a chief complaint of right flank pain. Patient reports right flank pain and burning when she urinates for the last 3 days. She reports that the pain as a 10 out of 10. Denies fevers or chills, nausea or vomiting, hematuria. ( Esther Caraballo) - Related Data Home Medications Medication Instructions Recorded Confirmed Meclizine [Antivert] 25 mg PO QID PRN 11/26/17 09/04/22 Ferrous Sulfate [Iron (65 MG 325 mg PO DAILY 10/08/18 09/04/22 Elemental)] Folic Acid 0.4 mg PO DAILY 10/08/18 09/04/22 L.acidoph,ParacZoie angel.lactis 2 cap PO BID 10/08/18 09/04/22 [Probiotic] Melatonin 5 mg PO HS PRN 10/08/18 09/04/22 Potassium 99 mg PO DAILY 10/08/18 09/04/22 Thiamine [Vitamin B-1] 100 mg PO DAILY 10/08/18 09/04/22 Vitamin B-Complex Drops 1 drop PO BID 10/08/18 09/04/22 C,E,Zinc,Copper 11/Xvezd3w/Lut 1 cap PO DAILY 06/25/20 09/04/22 [Ocuvite Adult 50 Plus Softgel] Cyanocobalamin (Vitamin B-12) 1,000 mcg PO DAILY 06/25/20 09/04/22 [Vitamin B-12] Spironolactone 50 mg PO DAILY 06/25/20 09/04/22 Vitamin E 400 unit PO DAILY 06/25/20 09/04/22 Brimonidine Tartrate [Alphagan P 1 drop RIGHT EYE BID 11/26/20 09/04/22 0.2% Ophth Soln] Glucagon [Gvoke Pfs 1-Pack Syringe] 1 mg SQ ONCE PRN 11/26/20 09/04/22 Pantoprazole Sodium [Protonix] 40 mg PO DAILY 11/26/20 09/04/22 busPIRone HCl [Buspar] 5 mg PO BID 02/04/21 09/04/22 Nystatin 1 applic TOPICAL BID PRN 02/17/21 09/04/22 Insulin Aspart (For Pump) [NovoLOG 0.01 unit SQ-PUMP CONTINUOUS 03/03/21 09/04/22 (For Pump)] Rosuvastatin Calcium [Crestor] 5 mg PO HS 08/15/21 09/04/22 Cholecalciferol [Vitamin D3 (25 75 mcg PO DAILY 09/21/21 09/04/22 Mcg = 1000 Iu)] Cranberry Fruit Extract [Cranberry] 1,000 mg PO DAILY 05/25/22 09/04/22 Dorzolamide 2% [Trusopt 2%] 1 drop RIGHT EYE BID 05/25/22 09/04/22 Magnesium Oxide [Magnesium] 500 mg PO DAILY 05/25/22 09/04/22 Multivit-Min/Folic Acid/[id number] 1 tab PO DAILY 05/25/22 09/04/22 [Alive Premium Adult Multivit] Promethazine HCl [Phenergan Syrup] 6.25 mg PO Q6H PRN 05/25/22 09/04/22 buPROPion HCL [Wellbutrin SR] 200 mg PO DAILY 05/25/22 09/04/22 hydroCHLOROthiazide [Hydrodiuril] 25 mg PO DAILY 05/25/22 09/04/22 Metoclopramide [Reglan] 5 mg PO TID PRN 07/17/22 09/04/22 lisinopriL [Zestril] 30 mg PO DAILY 07/17/22 09/04/22 methocarbamoL 1,000 mg PO Q6H PRN 07/17/22 09/04/22 Diclofenac Sodium Gel [Voltaren 1% 2 gm TOPICAL QID PRN 08/03/22 09/04/22 Gel] Cephalexin [Keflex] 250 mg PO DIRECTED 09/04/22 09/04/22 Previous Rx's Medication Instructions Recorded Aspirin 81 mg PO DAILY #0 07/02/18 Hydrocortisone [Cortef] 5 mg PO HS #0 05/30/22 Hydrocortisone [Cortef] 10 mg PO DAILY@1200 #0 05/30/22 Hydrocortisone [Cortef] 15 mg PO DAILY #0 05/30/22 Ondansetron Odt [Zofran ODT] 8 mg PO Q8HR PRN #15 tab 07/04/22 Metoprolol Succinate (ER) [Toprol 50 mg PO HS #30 tab 08/29/22 XL] Promethazine [Phenergan] 25 mg PO BID PRN #30 tab 08/29/22 Ciprofloxacin HCl [Cipro] 500 mg PO BID 4 Days #7 tab 08/30/22 Prochlorperazine [Compazine] 10 mg PO Q6HR PRN #20 tab 09/05/22 Butalb/APAP/Caff 50-325-40Mg 1 tab PO Q6H PRN #12 tab 09/06/22 [Fioricet 50-325-40] Gabapentin [Neurontin] 100 mg PO TID #9 cap 09/06/22 HYDROcodone/APAP 10-325MG [Orick 1 tab PO Q4H PRN #12 tab 09/06/22 10-325] Nirmatrelvir/Ritonavir [Paxlovid 1 each PO ONCE #1 pack 01/30/23 2X150 mg-100 mg (Eua)] Nitrofurantoin Monohyd/M-Cryst 100 mg PO Q12HR #6 cap 04/14/23 [Macrobid] Allergies Allergy/AdvReac Type Severity Reaction Status Date / Time butorphanol tartrate Allergy BLISTERS Verified 01/29/23 21:21 [From Stadol] IN MOUTH ceftriaxone [From Rocephin] Allergy Unknown Verified 01/29/23 21:21 clarithromycin [From Biaxin] Allergy Rash/Hives Verified 01/29/23 21:21 clindamycin Allergy Unknown Verified 01/29/23 21:21 codeine Allergy Rash/Hives Verified 01/29/23 21:21 ergotamine tartrate Allergy Unknown Verified 01/29/23 21:21 [From Cafergot] erythromycin base Allergy RASH, GI Verified 01/29/23 21:21 [From E-Mycin] SYMPTOMS ketorolac tromethamine Allergy Rash/Hives Verified 01/29/23 21:21 [From Toradol] liraglutide [From Victoza] Allergy Rash/Hives Verified 01/29/23 21:21 morphine Allergy Rash/Hives Verified 01/29/23 21:21 Penicillins Allergy Rash/Hives Verified 01/29/23 21:21 on upper body pentazocine lactate Allergy SEVERE Verified 01/29/23 21:21 [From Talwin] BLISTERS IN MOUTH pregabalin [From Lyrica] Allergy Rash/Hives Verified 01/29/23 21:21 propoxyphene HCl Allergy Rash/Hives Verified 01/29/23 21:21 [From Darvon] Sulfa (Sulfonamide Allergy Rash/Hives Verified 01/29/23 21:21 Antibiotics) tramadol Allergy Unknown Verified 01/29/23 21:21 vancomycin Allergy Swelling Verified 01/29/23 21:21 monosodium glutamate [MSG] AdvReac Nausea & Verified 01/29/23 21:21 Vomiting nalbuphine HCl [From Nubain] AdvReac Nausea & Verified 01/29/23 21:21 Vomiting Review of Systems ROS Other: All systems not noted in ROS Statement are negative. <Esther Caraballo - Last Filed: 04/14/23 12:22> ROS Other: All systems not noted in ROS Statement are negative. <Miguel Burkett - Last Filed: 04/24/23 07:29> ROS Statement: Those systems with pertinent positive or pertinent negative responses have been documented in the HPI. Past Medical History Past Medical History: Diabetes Mellitus, Deep Vein Thrombosis (DVT), Fibromy algia, Hyperlipidemia, Hypertension, Osteoarthritis (OA), Pneumonia, Renal Disease, Sleep Apnea/CPAP/BIPAP, Vascular Disorder Additional Past Medical History / Comment(s): Pt recently admitted to [facility] with R flank pain. 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, DVT R calf in 1976, cardiac murmur, occipital neuraligia, balance issues-has narrowing of vessels "in the back of my head", vertigo, varicosities, states rt shoulder torn rotator cuff History of Any Multi-Drug Resistant Organisms: ESBL, MRSA, VRE Date of last positivie culture/infection: 11/25/20 ESBL;12/06/19 VRE; 03/10/11 MRSA MDRO Source:: Urine ESBL; Urine-VRE: MRSA 4th Right TOE Past Surgical History: Appendectomy, Back Surgery, Bladder Surgery, Breast Surgery, Cholecystectomy, Heart Catheterization, Hysterectomy, Orthopedic Surgery, Tonsillectomy Additional Past Surgical History / Comment(s): Lumbar fusions, bladder suspension, occipital nerve blocks, 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, R wrist/elbow nerve repair, bone removed R shoulder, 4th toe R foot partial amputation, bilateral feet/bunionectomies, R knee arthroscopies, R orbit decompression with ethmoidectomy and eyelid lift, EGD, colonoscopies, cystocopies, lithotripsy/stents, bilateral breast reduction, bilateral cataract removals, parathyroid surgery - April 2019, pain clinic procedures Past Anesthesia/Blood Transfusion Reactions: No Reported Reaction Additional Past Anesthesia/Blood Transfusion Reaction / Comment(s): never recieved blood Past Psychological History: Depression Smoking Status: Never smoker Past Alcohol Use History: Occasional Past Drug Use History: None Reported - Past Family History Father Family Medical History: Coronary Artery Disease (CAD), CVA/TIA, Diabetes Mellitus, Myocardial Infarction ([place]), Pneumonia Additional Family Medical History / Comment(s): Father at the age of 78yrs from [place] and pneumonia. Mother Family Medical History: Cancer, Congestive Heart Failure (CHF) Additional Family Medical History / Comment(s): Mother had uterine cancer. She recently at the age of 96yrs old from shingles. <Esther Caraballo - Last Filed: 04/14/23 12:22> General Exam <Esther Caraballo - Last Filed: 04/14/23 12:22> General appearance: alert Head exam: Present: atraumatic, normocephalic Respiratory exam: Present: normal lung sounds bilaterally. Absent: respiratory distress, wheezes, rales, rhonchi, stridor, accessory muscle use Cardiovascular Exam: Present: normal rhythm, bradycardia (Rate 56 bpm), normal heart sounds. Absent: systolic murmur, diastolic murmur, rubs, gallop GI/Abdominal exam: Present: soft. Absent: distended, tenderness, guarding, rebound, rigid, mass Extremities exam: Present: normal inspection, normal capillary refill, other (Cast shoe right foot due to recent surgery). Absent: pedal edema, calf tenderness Back exam: Present: normal inspection. Absent: CVA tenderness (R), CVA t enderness (L) Neurological exam: Present: alert Skin exam: Present: warm, dry, intact, normal color. Absent: rash <Miguel Burkett - Last Filed: 04/24/23 07:29> - General Exam Comments Initial Comments: Visual Physical Exam Vital signs reviewed General: Well-appearing, nontoxic, no acute distress. Head: Normocephalic, atraumatic Eyes: PERRLA, EOMI ENT: Airway patent Chest: Nonlabored breathing Skin: No visual rash, normal skin tone Neuro: Alert and oriented 3 Musculoskeletal: No gross abnormalities I performed the quick note portion of this exam, verbal signature Esther Caraballo PA-C (Esther Caraballo) Course Vital Signs 04/14/23 04/14/23 04/14/23 12:20 15:10 15:56 Temperature 98.2 F Pulse Rate 57 L 69 68 Respiratory 18 18 18 Rate Blood Pressure 113/62 115/75 112/82 O2 Sat by Pulse 98 95 94 L Oximetry Medical Decision Making - Lab Data Result diagrams: 04/14/23 14:05 04/14/23 14:05 <RamirezMiguel orantes - Last Filed: 04/24/23 07:29> - Medical Decision Making Patient is 72-year-old woman with urinary tract symptoms, found to have infection. She does have multiple ALLERGIES and at this point we'll try Macrobid with close follow-up to ensure that there is some improvement. Cultures sent Was pt. sent in by a medical professional or institution (STEPHANY Rodriguez, CCTV TECHNICIAN, urgent care, hospital, or [facility]...) When possible be specific @ -[No] Did you speak to anyone other than the patient for history (EMS, parent, family, police, friend...)? What history was obtained from this source @ -[No] Did you review nursing and triage notes (agree or disagree)? Why? @ -[I reviewed and agree with nursing and triage notes] Were old charts reviewed (outside hosp., previous admission, EMS record, old EKG, old radiological studies, urgent care reports/EKG's, [facility] records)? Report findings @ -[No old charts were reviewed] Differential Diagnosis (chest pain, altered mental status, abdominal pain women, abdominal pain men, vaginal bleeding, weakness, fever, dyspnea, syncope, headache, dizziness, GI bleed, back pain, seizure, CVA, palpatations, mental health, musculoskeletal)? @ -[Differential Abdominal Pain Women: Appendicitis, Cholecystitis, diverticulosis, ischemic bowel, pancreatitis, hepatitis, UTI, gastroenteritis, AAA, incarcerated hernia, bowel obstruction, constipation, inflammatory bowel, hepatitis, peptic ulcer disease, splenic infarction, perforated viscus, vulvitis, ovarian torsion, PID, kidney stone, placenta abruption, this is not meant to be an all-inclusive list EKG interpreted by me (3pts min.). @ -[As above] X-rays interpreted by me (1pt min.). @ -[None done] CT interpreted by me (1pt min.). @ -[None done] U/S interpreted by me (1pt. min.). @ -[None done] What testing was considered but not performed or refused? (CT, X-rays, U/S, labs)? Why? @ -[None] What meds were considered but not given or refused? Why? @ -[None] Did you discuss the management of the patient with other professionals (professionals i.e. , PA, CCTV TECHNICIAN, lab, RT, psych nurse, social media content specialist, hammersmith helper, teacher, fare enforcement officer, patient case manager)? Give summary @ -[No] Was smoking cessation discussed for >3mins.? @ -[No] Was critical care preformed (if so, how long)? @ -[No] Were there social determinants of health that impacted care today? How? ( Homelessness, low income, unemployed, alcoholism, drug addiction, transportation, low edu. Level, literacy, decrease access to med. care, alf, rehab)? @ -[No] Was there de-escalation of care discussed even if they declined (Discuss DNR or withdrawal of care, Hospice)? DNR status @ -[No] What co-morbidities impacted this encounter? (DM, HTN, Smoking, COPD, CAD, Cancer, CVA, ARF, Chemo, Hep., AIDS, mental health diagnosis, sleep apnea, morbid obesity)? @ -[None] Was patient admitted / discharged? Hospital course, mention meds given and route, prescriptions, significant lab abnormalities, going to OR and other pertinent info. @ -[Discharged with course of antibiotics and close follow-up Undiagnosed new problem with uncertain prognosis? @ -[No] Drug Therapy requiring intensive monitoring for toxicity (Heparin, Nitro, Insulin, Cardizem)? @ -[No] Were any procedures done? @ -[No] Diagnosis/symptom? @ -[Urinary tract infection Acute on chronic pain Acute, or Chronic, or Acute on Chronic? @ -[Acute Uncomplicated (without systemic symptoms) or Complicated (systemic symptoms)? @ -[default] Side effects of treatment? @ -[No] Exacerbation, Progression, or Severe Exacerbation? @ -[No] Poses a threat to life or bodily function? How? (Chest pain, [place], [place], pneumonia, PE, COPD, DKA, ARF, appy, cholecystitis, CVA, Diverticulitis, Homicidal, Suicidal, threat to staff... and all critical care pts) @ -[No] (Miguel Burkett) - Lab Data Lab Results 04/14/23 04/14/23 04/14/23 Range/Units 14:05 14:05 14:05 WBC 10.2 (3.8-10.6) k/uL RBC 4.95 (3.80-5.40) m/uL Hgb 14.6 (11.4-16.0) gm/dL Hct 43.8 (34.0-46.0) % MCV 88.5 (80.0-100.0) fL MCH 29.4 (25.0-35.0) pg MCHC 33.2 (31.0-37.0) g/dL RDW 15.4 (11.5-15.5) % Plt Count 245 (150-450) k/uL MPV 8.2 Neutrophils % 74 % Lymphocytes % 17 % Monocytes % 4 % Eosinophils % 4 % Basophils % 0 % Neutrophils # 7.5 (1.3-7.7) k/uL Lymphocytes # 1.7 (1.0-4.8) k/uL Monocytes # 0.4 (0-1.0) k/uL Eosinophils # 0.4 (0-0.7) k/uL Basophils # 0.0 (0-0.2) k/uL Sodium 139 (137-145) mmol/L Potassium 5.2 H (3.5-5.1) mmol/L Chloride 107 (98-107) mmol/L Carbon Dioxide 20 L (22-30) mmol/L Anion Gap 12 mmol/L BUN 40 H (7-17) mg/dL Creatinine 1.21 H (0.52-1.04) mg/dL Est GFR (CKD-EPI)AfAm 52 (>60 ml/min/1.73 sqM) Est GFR (CKD-EPI)NonAf 45 (>60 ml/min/1.73 sqM) Glucose 133 H (74-99) mg/dL Plasma Lactic Acid Sudhir (0.7-2.0) mmol/L Calcium 9.8 (8.4-10.2) mg/dL Total Bilirubin 0.7 (0.2-1.3) mg/dL AST 31 (14-36) U/L ALT 22 (4-34) U/L Alkaline Phosphatase 79 (38-126) U/L C-Reactive Protein 1.8 H (<1.0) mg/dL Total Protein 7.0 (6.3-8.2) g/dL Albumin 4.5 (3.5-5.0) g/dL Urine Color Dark Yellow Urine Appearance Slightly Cloudy H (Clear) Urine pH 5.0 (5.0-8.0) Ur Specific [place] 1.025 (1.001-1.035) Urine Protein Trace (Negative) Urine Glucose (UA) Negative (Negative) Urine Ketones Negative (Negative) Urine Blood Trace (Negative) Urine Nitrite Negative (Negative) Urine Bilirubin Negative (Negative) Urine Urobilinogen <2.0 (<2.0) mg/dL Ur Leukocyte Esterase Large (Negative) Urine RBC 2 (0-5) /hpf Urine WBC 41 H (0-5) /hpf Ur Squamous Epith Cells 5 H (0-4) /hpf Hyaline Casts 7 H (0-2) /lpf 04/14/23 Range/Units 14:05 WBC (3.8-10.6) k/uL RBC (3.80-5.40) m/uL Hgb (11.4-16.0) gm/dL Hct (34.0-46.0) % MCV (80.0-100.0) fL MCH (25.0-35.0) pg MCHC (31.0-37.0) g/dL RDW (11.5-15.5) % Plt Count (150-450) k/uL MPV Neutrophils % % Lymphocytes % % Monocytes % % Eosinophils % % Basophils % % Neutrophils # (1.3-7.7) k/uL Lymphocytes # (1.0-4.8) k/uL Monocytes # (0-1.0) k/uL Eosinophils # (0-0.7) k/uL Basophils # (0-0.2) k/uL Sodium (137-145) mmol/L Potassium (3.5-5.1) mmol/L Chloride (98-107) mmol/L Carbon Dioxide (22-30) mmol/L Anion Gap mmol/L BUN (7-17) mg/dL Creatinine (0.52-1.04) mg/dL Est GFR (CKD-EPI)AfAm (>60 ml/min/1.73 sqM) Est GFR (CKD-EPI)NonAf (>60 ml/min/1.73 sqM) Glucose (74-99) mg/dL Plasma Lactic Acid Sudhir 1.6 (0.7-2.0) mmol/L Calcium (8.4-10.2) mg/dL Total Bilirubin (0.2-1.3) mg/dL AST (14-36) U/L ALT (4-34) U/L Alkaline Phosphatase (38-126) U/L C-Reactive Protein (<1.0) mg/dL Total Protein (6.3-8.2) g/dL Albumin (3.5-5.0) g/dL Urine Color Urine Appearance (Clear) Urine pH (5.0-8.0) Ur Specific [place] (1.001-1.035) Urine Protein (Negative) Urine Glucose (UA) (Negative) Urine Ketones (Negative) Urine Blood (Negative) Urine Nitrite (Negative) Urine Bilirubin (Negative) Urine Urobilinogen (<2.0) mg/dL Ur Leukocyte Esterase (Negative) Urine RBC (0-5) /hpf Urine WBC (0-5) /hpf Ur Squamous Epith Cells (0-4) /hpf Hyaline Casts (0-2) /lpf Disposition <Esther Caraballo - Last Filed: 04/14/23 12:22> Is patient prescribed a controlled substance at d/c from ED?: No <Miguel Burkett - Last Filed: 04/24/23 07:29> Clinical Impression: UTI (urinary tract infection) Disposition: HOME SELF-CARE Condition: Good Instructions (If sedation given, give patient instructions): Urinary Tract Infection in Women (ED) Prescriptions: Nitrofurantoin Monohyd/M-Cryst [Macrobid] 100 mg PO Q12HR #6 cap Referrals: Andrew Gonsales MD [Primary Care Provider] - 1-2 days
[2023-04-14 12:35] VITALS: RESP 18; TEMP 98.2
[2023-04-14 14:15] LABS: Basophils % (A) 0 %; Eosinophils # (A) 0.4 k/uL (0-0.7); Eosinophils % (A) 4 %; HCT 43.8 % (34.0-46.0); HGB 14.6 gm/dL (11.4-16.0); Lymphocytes # (A) 1.7 k/uL (1.0-4.8); Lymphocytes % (A) 17 %; MCH 29.4 pg (25.0-35.0); MCHC 33.2 g/dL (31.0-37.0); MCV 88.5 fL (80.0-100.0); Mean Platelet Volume 8.2; Monocytes # (A) 0.4 k/uL (0-1.0); Monocytes % (A) 4 %; Neutrophils # (A) 7.5 k/uL (1.3-7.7); Neutrophils % (A) 74 %; Platelet Count 245 k/uL (150-450); RBC 4.95 m/uL (3.80-5.40); RDW 15.4 % (11.5-15.5); WBC 10.2 k/uL (3.8-10.6)
[2023-04-14 14:58] LABS: Appearance,Urine Slightly Cloudy (Clear); Color,Urine Dark Yellow; Specific Gravity,Urine 1.025 (1.001-1.035)
[2023-04-14 14:59] LABS: Bilirubin,Urine Negative (Negative); Blood,Urine Trace (Negative); Glucose,Urine (UA) Negative (Negative); Ketones,Urine Negative (Negative); Protein,Urine Trace (Negative)
[2023-04-14] MEDS ORDERED: MORPHINE SULFATE 4 MG/ML SYRINGE IV STA (14:59)
[2023-04-14 15:00] LABS: ALT 22 U/L (4-34); AST 31 U/L (14-36); African American GFR (CKD) 52 (>60 ml/min/1.73 sqM); Albumin 4.5 g/dL (3.5-5.0); Alkaline Phosphatase 79 U/L (38-126); Anion Gap 12 mmol/L; Blood Urea Nitrogen 40 mg/dL (7-17); C Reactive Protein 1.8 mg/dL (<1.0); Calcium 9.8 mg/dL (8.4-10.2); Carbon Dioxide 20 mmol/L (22-30); Chloride 107 mmol/L (98-107); Glucose 133 mg/dL (74-99); Leukocyte Esterase,Urine Large (Negative); Nitrite,Urine Negative (Negative); Non-African American GFR(CKD) 45 (>60 ml/min/1.73 sqM); Sodium 139 mmol/L (137-145); Total Bilirubin 0.7 mg/dL (0.2-1.3); Urobilinogen,Urine <2.0 mg/dL (<2.0)
[2023-04-14 15:05] LABS: Potassium 5.2 mmol/L (3.5-5.1)
[2023-04-14 15:13] LABS: Hyaline Casts,Urine 7 /lpf (0-2); RBC,Urine 2 /hpf (0-5); Squamous Epithelial Cell,Urine 5 /hpf (0-4); WBC,Urine 41 /hpf (0-5)
[2023-04-14] MEDS ORDERED: NITROFURANTOIN MONOHYD/M-CRYST 100 MG CAP PO STA (15:31)
[2023-04-14 16:05] VITALS: BP 112/82; PULSE 68
[2023-04-14] MEDS ORDERED: HYDROmorphone 0.5 MG/0.5 ML SYRINGE IVP STA (16:21)
== END 2023-04-14 16:44 | disposition home or self-care (01) ==
LOC: EC 11:56
DX: N39.0 Urinary tract infection, site not specified (principal); R00.1 Bradycardia, unspecified; E11.40 Type 2 diabetes mellitus with diabetic neuropathy, unspecified; I10 Essential (primary) hypertension; E78.5 Hyperlipidemia, unspecified; M79.7 Fibromyalgia; M19.90 Unspecified osteoarthritis, unspecified site; F32.A Depression, unspecified; Z79.4 Long term (current) use of insulin; Z79.899 Other long term (current) drug therapy; Z88.0 Allergy status to penicillin; Z88.1 Allergy status to other antibiotic agents; Z88.2 Allergy status to sulfonamides; Z88.5 Allergy status to narcotic agent; Z88.6 Allergy status to analgesic agent; Z88.8 Allergy status to other drugs, medicaments and biological substances; Z90.49 Acquired absence of other specified parts of digestive tract
CPT/HCPCS: 36415; 80053; 83605; 85025; 86140; 81001; 87086; 99284; 96374; J1170

== ENCOUNTER 2023-04-18 20:54 | Emergency (ER) | payer MEDICARE, BC ==
--- NOTE | 2023-04-18 21:30 | ED ---
Female Urogenital HPI - General Chief complaint: Urogenital Source: patient, RN notes reviewed Mode of arrival: wheelchair Limitations: no limitations - History of Present Illness Initial comments: Patient is 72-year-old female who presents the emergency department for UTI symptoms. Patient was diagnosed on Monday she has been on Macrobid but burning with urination is worsening. Patient reports right side pain no nausea or vomiting. No fever or chills - Related Data Home Medications Medication Instructions Recorded Confirmed Meclizine [Antivert] 25 mg PO QID PRN 11/26/17 09/04/22 Ferrous Sulfate [Iron (65 MG 325 mg PO DAILY 10/08/18 09/04/22 Elemental)] Folic Acid 0.4 mg PO DAILY 10/08/18 09/04/22 L.acidoph,Paracasei, B.lactis 2 cap PO BID 10/08/18 09/04/22 [Probiotic] Melatonin 5 mg PO HS PRN 10/08/18 09/04/22 Potassium 99 mg PO DAILY 10/08/18 09/04/22 Thiamine [Vitamin B-1] 100 mg PO DAILY 10/08/18 09/04/22 Vitamin B-Complex Drops 1 drop PO BID 10/08/18 09/04/22 C,E,Zinc,Copper 11/Ueohr7s/Lut 1 cap PO DAILY 06/25/20 09/04/22 [Ocuvite Adult 50 Plus Softgel] Cyanocobalamin (Vitamin B-12) 1,000 mcg PO DAILY 06/25/20 09/04/22 [Vitamin B-12] Spironolactone 50 mg PO DAILY 06/25/20 09/04/22 Vitamin E 400 unit PO DAILY 06/25/20 09/04/22 Brimonidine Tartrate [Alphagan P 1 drop RIGHT EYE BID 11/26/20 09/04/22 0.2% Ophth Soln] Glucagon [Gvoke Pfs 1-Pack Syringe] 1 mg SQ ONCE PRN 11/26/20 09/04/22 Pantoprazole Sodium [Protonix] 40 mg PO DAILY 11/26/20 09/04/22 busPIRone HCl [Buspar] 5 mg PO BID 02/04/21 09/04/22 Nystatin 1 applic TOPICAL BID PRN 02/17/21 09/04/22 Insulin Aspart (For Pump) [NovoLOG 0.01 unit SQ-PUMP CONTINUOUS 03/03/21 09/04/22 (For Pump)] Rosuvastatin Calcium [Crestor] 5 mg PO HS 08/15/21 09/04/22 Cholecalciferol [Vitamin D3 (25 75 mcg PO DAILY 09/21/21 09/04/22 Mcg = 1000 Iu)] Cranberry Fruit Extract [Cranberry] 1,000 mg PO DAILY 05/25/22 09/04/22 Dorzolamide 2% [Trusopt 2%] 1 drop RIGHT EYE BID 05/25/22 09/04/22 Magnesium Oxide [Magnesium] 500 mg PO DAILY 05/25/22 09/04/22 Multivit-Min/Folic Acid/Sns247 1 tab PO DAILY 05/25/22 09/04/22 [Alive Premium Adult Multivit] Promethazine HCl [Phenergan Syrup] 6.25 mg PO Q6H PRN 05/25/22 09/04/22 buPROPion HCL [Wellbutrin SR] 200 mg PO DAILY 05/25/22 09/04/22 hydroCHLOROthiazide [Hydrodiuril] 25 mg PO DAILY 05/25/22 09/04/22 Metoclopramide [Reglan] 5 mg PO TID PRN 07/17/22 09/04/22 lisinopriL [Zestril] 30 mg PO DAILY 07/17/22 09/04/22 methocarbamoL 1,000 mg PO Q6H PRN 07/17/22 09/04/22 Diclofenac Sodium Gel [Voltaren 1% 2 gm TOPICAL QID PRN 08/03/22 09/04/22 Gel] Cephalexin [Keflex] 250 mg PO DIRECTED 09/04/22 09/04/22 Previous Rx's Medication Instructions Recorded Aspirin 81 mg PO DAILY #0 07/02/18 Hydrocortisone [Cortef] 5 mg PO HS #0 05/30/22 Hydrocortisone [Cortef] 10 mg PO DAILY@1200 #0 05/30/22 Hydrocortisone [Cortef] 15 mg PO DAILY #0 05/30/22 Ondansetron Odt [Zofran ODT] 8 mg PO Q8HR PRN #15 tab 07/04/22 Metoprolol Succinate (ER) [Toprol 50 mg PO HS #30 tab 08/29/22 XL] Promethazine [Phenergan] 25 mg PO BID PRN #30 tab 08/29/22 Ciprofloxacin HCl [Cipro] 500 mg PO BID 4 Days #7 tab 08/30/22 Prochlorperazine [Compazine] 10 mg PO Q6HR PRN #20 tab 09/05/22 Butalb/APAP/Caff 50-325-40Mg 1 tab PO Q6H PRN #12 tab 09/06/22 [Fioricet 50-325-40] Gabapentin [Neurontin] 100 mg PO TID #9 cap 09/06/22 HYDROcodone/APAP 10-325MG [[place] 1 tab PO Q4H PRN #12 tab 09/06/22 10-325] Nirmatrelvir/Ritonavir [Paxlovid 1 each PO ONCE #1 pack 01/30/23 2X150 mg-100 mg (Eua)] Nitrofurantoin Monohyd/M-Cryst 100 mg PO Q12HR #6 cap 04/14/23 [Macrobid] Allergies Allergy/AdvReac Type Severity Reaction Status Date / Time butorphanol tartrate Allergy BLISTERS Verified 01/29/23 21:21 [From Stadol] IN MOUTH ceftriaxone [From Rocephin] Allergy Unknown Verified 01/29/23 21:21 clarithromycin [From Biaxin] Allergy Rash/Hives Verified 01/29/23 21:21 clindamycin Allergy Unknown Verified 01/29/23 21:21 codeine Allergy Rash/Hives Verified 01/29/23 21:21 ergotamine tartrate Allergy Unknown Verified 01/29/23 21:21 [From Cafergot] erythromycin base Allergy RASH, GI Verified 01/29/23 21:21 [From E-Mycin] SYMPTOMS ketorolac tromethamine Allergy Rash/Hives Verified 01/29/23 21:21 [From Toradol] liraglutide [From Victoza] Allergy Rash/Hives Verified 01/29/23 21:21 morphine Allergy Rash/Hives Verified 01/29/23 21:21 Penicillins Allergy Rash/Hives Verified 01/29/23 21:21 on upper body pentazocine lactate Allergy SEVERE Verified 01/29/23 21:21 [From Talwin] BLISTERS IN MOUTH pregabalin [From Lyrica] Allergy Rash/Hives Verified 01/29/23 21:21 propoxyphene HCl Allergy Rash/Hives Verified 01/29/23 21:21 [From Darvon] Sulfa (Sulfonamide Allergy Rash/Hives Verified 01/29/23 21:21 Antibiotics) tramadol Allergy Unknown Verified 01/29/23 21:21 vancomycin Allergy Swelling Verified 01/29/23 21:21 monosodium glutamate [MSG] AdvReac Nausea & Verified 01/29/23 21:21 Vomiting nalbuphine HCl [From Nubain] AdvReac Nausea & Verified 01/29/23 21:21 Vomiting Review of Systems ROS Statement: Those systems with pertinent positive or pertinent negative responses have been documented in the HPI. ROS Other: All systems not noted in ROS Statement are negative. Past Medical History Past Medical History: Diabetes Mellitus, Deep Vein Thrombosis (DVT), Fibromyalgia, Hyperlipidemia, Hypertension, Osteoarthritis (OA), Pneumonia, Renal Disease, Sleep Apnea/CPAP/BIPAP, Vascular Disorder Additional Past Medical History / Comment(s): [facility] pain. 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, DVT R calf in 1976, cardiac murmur, occipital neuraligia, balance issues-has narrowing of vessels "in the back of my head", vertigo, varicosities, states rt shoulder torn rotator cuff History of Any Multi-Drug Resistant Organisms: ESBL, MRSA, VRE Date of last positivie culture/infection: 11/25/20 ESBL;12/06/19 VRE; 03/10/11 MRSA MDRO Source:: Urine ESBL; Urine-VRE: MRSA 4th Right TOE Past Surgical History: Appendectomy, Back Surgery, Bladder Surgery, Breast Surgery, Cholecystectomy, Heart Catheterization, Hysterectomy, Orthopedic Surgery, Tonsillectomy Additional Past Surgical History / Comment(s): Lumbar fusions, bladder suspension, occipital nerve blocks, 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, R wrist/elbow nerve repair, bone removed R shoulder, 4th toe R foot partial amputation, bilateral feet/bunionectomies, R knee arthroscopies, R orbit decompression with ethmoidectomy and eyelid lift, EGD, colonoscopies, cystocopies, lithotripsy/stents, bilateral breast reduction, bilateral cataract removals, parathyroid surgery - April 2019, pain clinic procedures Past Anesthesia/Blood Transfusion Reactions: No Reported Reaction Additional Past Anesthesia/Blood Transfusion Reaction / Comment(s): never recieved blood Past Psychological History: Depression Smoking Status: Never smoker Past Alcohol Use History: Occasional Past Drug Use History: None Reported - Past Family History Father Family Medical History: Coronary Artery Disease (CAD), CVA/TIA, Diabetes Mellitus, Myocardial Infarction ([place]), Pneumonia Additional Family Medical History / Comment(s): Father at the age of 78yrs from [place] and pneumonia. Mother Family Medical History: Cancer, Congestive Heart Failure (CHF) Additional Family Medical History / Comment(s): Mother had uterine cancer. She recently at the age of 96yrs old from shingles. General Exam - General Exam Comments Initial Comments: Visual Physical Exam Vital signs reviewed General: Well-appearing, nontoxic, no acute distress. Head: Normocephalic, atraumatic Eyes: PERRLA, EOMI ENT: Airway patent Chest: Nonlabored breathing Skin: No visual rash, normal skin tone Neuro: Alert and oriented 3 Musculoskeletal: No gross abnormalities Limitations: no limitations General appearance: alert Respiratory exam: Present: normal lung sounds bilaterally. Absent: respiratory distress, wheezes, rales, rhonchi, stridor Cardiovascular Exam: Present: regular rate, normal rhythm, normal heart sounds. Absent: systolic murmur, diastolic murmur, rubs, gallop, clicks GI/Abdominal exam: Present: soft, normal bowel sounds. Absent: distended, tenderness, guarding, rebound, rigid Back exam: Absent: CVA tenderness (R), CVA tenderness (L), paraspinal tenderness, vertebral tenderness Neurological exam: Present: alert Psychiatric exam: Present: normal affect, normal mood Skin exam: Present: warm, dry, intact, normal color. Absent: rash Course Vital Signs 04/18/23 04/19/23 21:26 03:16 Temperature 98.5 F Pulse Rate 110 H 122 H Respiratory 18 18 Rate Blood Pressure 120/79 112/75 O2 Sat by Pulse 96 97 Oximetry Medical Decision Making - Medical Decision Making I performed the QuickNote portion of this chart - STEPHANY Gallagher-C Was pt. sent in by a medical professional or institution (STEPHANY Rodriguez, OUTSOLE CEMENTER, urgent care, hospital, or correction...) When possible be specific @ -No Did you speak to anyone other than the patient for history (EMS, parent, family, police, friend...)? What history was obtained from this source @ -No Did you review nursing and triage notes (agree or disagree)? Why? @ -I reviewed and agree with nursing and triage notes Were old charts reviewed (outside hosp., previous admission, EMS record, old EKG, old radiological studies, urgent care reports/EKG's, correction records)? Report findings @ -No old charts were reviewed Differential Diagnosis (chest pain, altered mental status, abdominal pain women, abdominal pain men, vaginal bleeding, weakness, fever, dyspnea, syncope, headache, dizziness, GI bleed, back pain, seizure, CVA, palpatations, mental he alth)? @ -Differential Abdominal Pain Women: Appendicitis, Cholecystitis, diverticulosis, ischemic bowel, pancreatitis, hepatitis, UTI, gastroenteritis, AAA, incarcerated hernia, bowel obstruction, constipation, inflammatory bowel, hepatitis, peptic ulcer disease, splenic infarction, perforated viscus, vulvitis, ovarian torsion, PID, kidney stone, placenta abruption, this is not meant to be an all-inclusive list EKG interpreted by me (3pts min.). @ -As above X-rays interpreted by me (1pt min.). @ -None done CT interpreted by me (1pt min.). @ -no acute process per attending U/S interpreted by me (1pt. min.). @ -None done What testing was considered but not performed or refused? (CT, X-rays, U/S, labs)? Why? @ -None What meds were considered but not given or refused? Why? @ -None Did you discuss the management of the patient with other professionals (professionals i.e. STEPHANY Rodriguez, OUTSOLE CEMENTER, lab, RT, psych nurse, social media project manager, district claims manager, teacher, articulation officer, case management rn)? Give summary @ -No Was smoking cessation discussed for >3mins.? @ -No Was critical care preformed (if so, how long)? @ -No Were there social determinants of health that impacted care today? How? (Homelessness, low income, unemployed, alcoholism, drug addiction, transportation, low edu. Level, literacy, decrease access to med. care, long-term, r ehab)? @ -No] Was there de-escalation of care discussed even if they declined (Discuss DNR or withdrawal of care, Hospice)? DNR status @ -[No] What co-morbidities impacted this encounter? (DM, HTN, Smoking, COPD, CAD, Cancer, CVA, ARF, Chemo, Hep., AIDS, mental health diagnosis, sleep apnea, morbid obesity)? @ -[None] Was patient admitted / discharged? Hospital course, mention meds given and route, prescriptions, significant lab abnormalities, going to OR and other pertinent info. @ -Patient presenting for dysuria and right side pain. The abdomen is soft and nontender. No CVA tenderness however patient reports significant pain and therefore laboratory studies and CT obtained.There is mild leukocytosis at 11.3. Urinalysis is improved from last visit on 04/14/31 with rare bacteria, 15 WBCs, moderate leukocyte esterase. I did review a previous urine culture which showed normal genital and skin ronal.Will await culture before treatment. 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 Patient is nontoxic- appearing discharged in stable condition Undiagnosed new problem with uncertain prognosis? @ -[No] Drug Therapy requiring intensive monitoring for toxicity (Heparin, Nitro, Insulin, Cardizem)? @ -[No] Were any procedures done? @ -[No] Diagnosis/symptom? @ dysuria, right flank pain Acute, or Chronic, or Acute on Chronic? @ -acute Uncomplicated (without systemic symptoms) or Complicated (systemic symptoms)? @ -uncomplicated Side effects of treatment? @ -[No] Exacerbation, Progression, or Severe Exacerbation? @ -[No] Poses a threat to life or bodily function? How? (Chest pain, [place], [place], pneumonia, PE, COPD, DKA, ARF, appy, cholecystitis, CVA, Diverticulitis, Homicidal, Suicidal, threat to staff... and all critical care pts) @ -[No] Dr. Burkett is my attending - Lab Data Result diagrams: 04/18/23 21:56 04/18/23 21:56 Lab Results 04/18/23 04/18/23 04/18/23 Range/Units 21:56 21:56 21:56 WBC 11.3 H (3.8-10.6) k/uL RBC 4.63 (3.80-5.40) m/uL Hgb 13.6 (11.4-16.0) gm/dL Hct 40.8 (34.0-46.0) % MCV 88.1 (80.0-100.0) fL MCH 29.3 (25.0-35.0) pg MCHC 33.3 (31.0-37.0) g/dL RDW 15.2 (11.5-15.5) % Plt Count 200 (150-450) k/uL MPV 8.4 Neutrophils % 71 % Lymphocytes % 18 % Monocytes % 6 % Eosinophils % 3 % Basophils % 0 % Neutrophils # 8.0 H (1.3-7.7) k/uL Lymphocytes # 2.0 (1.0-4.8) k/uL Monocytes # 0.7 (0-1.0) k/uL Eosinophils # 0.4 (0-0.7) k/uL Basophils # 0.0 (0-0.2) k/uL Sodium 140 (137-145) mmol/L Potassium 4.2 (3.5-5.1) mmol/L Chloride 108 H (98-107) mmol/L Carbon Dioxide 21 L (22-30) mmol/L Anion Gap 11 mmol/L BUN 27 H (7-17) mg/dL Creatinine 0.84 (0.52-1.04) mg/dL Est GFR (CKD-EPI)AfAm 80 (>60 ml/min/1.73 sqM) Est GFR (CKD-EPI)NonAf 69 (>60 ml/min/1.73 sqM) Glucose 126 H (74-99) mg/dL POC Glucose (mg/dL) (70-110) mg/dL POC Glu Stock Pitcher ID Lactic Ac Sepsis Rflx Plasma Lactic Acid Sudhir 2.2 H* (0.7-2.0) mmol/L Calcium 9.3 (8.4-10.2) mg/dL Total Bilirubin 0.5 (0.2-1.3) mg/dL AST 26 (14-36) U/L ALT 25 (4-34) U/L Alkaline Phosphatase 71 (38-126) U/L Total Protein 6.5 (6.3-8.2) g/dL Albumin 4.0 (3.5-5.0) g/dL Lipase 79 (23-300) U/L Urine Color Urine Appearance (Clear) Urine pH (5.0-8.0) Ur Specific Hobbs (1.001-1.035) Urine Protein (Negative) Urine Glucose (UA) (Negative) Urine Ketones (Negative) Urine Blood (Negative) Urine Nitrite (Negative) Urine Bilirubin (Negative) Urine Urobilinogen (<2.0) mg/dL Ur Leukocyte Esterase (Negative) Urine RBC (0-5) /hpf Urine WBC (0-5) /hpf Ur Squamous Epith Cells (0-4) /hpf Amorphous Sediment (None) /hpf Urine Bacteria (None) /hpf Hyaline Casts (0-2) /lpf Urine Mucus (None) /hpf 04/18/23 04/18/23 04/19/23 Range/Units 22:05 22:33 02:04 WBC (3.8-10.6) k/uL RBC (3.80-5.40) m/uL Hgb (11.4-16.0) gm/dL Hct (34.0-46.0) % MCV (80.0-100.0) fL MCH (25.0-35.0) pg MCHC (31.0-37.0) g/dL RDW (11.5-15.5) % Plt Count (150-450) k/uL MPV Neutrophils % % Lymphocytes % % Monocytes % % Eosinophils % % Basophils % % Neutrophils # (1.3-7.7) k/uL Lymphocytes # (1.0-4.8) k/uL Monocytes # (0-1.0) k/uL Eosinophils # (0-0.7) k/uL Basophils # (0-0.2) k/uL Sodium (137-145) mmol/L Potassium (3.5-5.1) mmol/L Chloride (98-107) mmol/L Carbon Dioxide (22-30) mmol/L Anion Gap mmol/L BUN (7-17) mg/dL Creatinine (0.52-1.04) mg/dL Est GFR (CKD-EPI)AfAm (>60 ml/min/1.73 sqM) Est GFR (CKD-EPI)NonAf (>60 ml/min/1.73 sqM) Glucose (74-99) mg/dL POC Glucose (mg/dL) (70-110) mg/dL POC Glu Stock Pitcher ID Lactic Ac Sepsis Rflx Y Plasma Lactic Acid Sudhir 1.5 (0.7-2.0) mmol/L Calcium (8.4-10.2) mg/dL Total Bilirubin (0.2-1.3) mg/dL AST (14-36) U/L ALT (4-34) U/L Alkaline Phosphatase (38-126) U/L Total Protein (6.3-8.2) g/dL Albumin (3.5-5.0) g/dL Lipase (23-300) U/L Urine Color Yellow Urine Appearance Clear (Clear) Urine pH 5.5 (5.0-8.0) Ur Specific [place] 1.020 (1.001-1.035) Urine Protein Trace H (Negative) Urine Glucose (UA) Trace H (Negative) Urine Ketones Negative (Negative) Urine Blood Negative (Negative) Urine Nitrite Negative (Negative) Urine Bilirubin Negative (Negative) Urine Urobilinogen 0.2 (<2.0) mg/dL Ur Leukocyte Esterase Moderate (Negative) Urine RBC 2 (0-5) /hpf Urine WBC 15 H (0-5) /hpf Ur Squamous Epith Cells 2 (0-4) /hpf Amorphous Sediment Rare H (None) /hpf Urine Bacteria Rare H (None) /hpf Hyaline Casts 14 H (0-2) /lpf Urine Mucus Rare H (None) /hpf 04/19/23 Range/Units 02:56 WBC (3.8-10.6) k/uL RBC (3.80-5.40) m/uL Hgb (11.4-16.0) gm/dL Hct (34.0-46.0) % MCV (80.0-100.0) fL MCH (25.0-35.0) pg MCHC (31.0-37.0) g/dL RDW (11.5-15.5) % Plt Count (150-450) k/uL MPV Neutrophils % % Lymphocytes % % Monocytes % % Eosinophils % % Basophils % % Neutrophils # (1.3-7.7) k/uL Lymphocytes # (1.0-4.8) k/uL Monocytes # (0-1.0) k/uL Eosinophils # (0-0.7) k/uL Basophils # (0-0.2) k/uL Sodium (137-145) mmol/L Potassium (3.5-5.1) mmol/L Chloride (98-107) mmol/L Carbon Dioxide (22-30) mmol/L Anion Gap mmol/L BUN (7-17) mg/dL Creatinine (0.52-1.04) mg/dL Est GFR (CKD-EPI)AfAm (>60 ml/min/1.73 sqM) Est GFR (CKD-EPI)NonAf (>60 ml/min/1.73 sqM) Glucose (74-99) mg/dL POC Glucose (mg/dL) 88 (70-110) mg/dL POC Glu Stock Pitcher ID Cl [place]hman Lactic Ac Sepsis Rflx Plasma Lactic Acid Sudhir (0.7-2.0) mmol/L Calcium (8.4-10.2) mg/dL Total Bilirubin (0.2-1.3) mg/dL AST (14-36) U/L ALT (4-34) U/L Alkaline Phosphatase (38-126) U/L Total Protein (6.3-8.2) g/dL Albumin (3.5-5.0) g/dL Lipase (23-300) U/L Urine Color Urine Appearance (Clear) Urine pH (5.0-8.0) Ur Specific [place] (1.001-1.035) Urine Protein (Negative) Urine Glucose (UA) (Negative) Urine Ketones (Negative) Urine Blood (Negative) Urine Nitrite (Negative) Urine Bilirubin (Negative) Urine Urobilinogen (<2.0) mg/dL Ur Leukocyte Esterase (Negative) Urine RBC (0-5) /hpf Urine WBC (0-5) /hpf Ur Squamous Epith Cells (0-4) /hpf Amorphous Sediment (None) /hpf Urine Bacteria (None) /hpf Hyaline Casts (0-2) /lpf Urine Mucus (None) /hpf Disposition Clinical Impression: Dysuria Disposition: HOME SELF-CARE Condition: Good Instructions (If sedation given, give patient instructions): Urinary Tract Inf ection in Women (ED) Additional Instructions: Your urine will be sent out for culture. Follow up with primary care provider in one to 2 days. Return to the emergency department if you experience new, concerning, or worsening symptoms. Is patient prescribed a controlled substance at d/c from ED?: No Referrals: Andrew Gonsales MD [Primary Care Provider] - 1-2 days
[2023-04-18 21:45] VITALS: RESP 18; TEMP 98.5
[2023-04-18 22:30] LABS: ALT 25 U/L (4-34); AST 26 U/L (14-36); African American GFR (CKD) 80 (>60 ml/min/1.73 sqM); Alkaline Phosphatase 71 U/L (38-126); Anion Gap 11 mmol/L; Blood Urea Nitrogen 27 mg/dL (7-17); Calcium 9.3 mg/dL (8.4-10.2); Carbon Dioxide 21 mmol/L (22-30); Chloride 108 mmol/L (98-107); Glucose 126 mg/dL (74-99); Lipase 79 U/L (23-300); Non-African American GFR(CKD) 69 (>60 ml/min/1.73 sqM); Potassium 4.2 mmol/L (3.5-5.1); Sodium 140 mmol/L (137-145); Total Bilirubin 0.5 mg/dL (0.2-1.3); Total Protein 6.5 g/dL (6.3-8.2)
[2023-04-18 22:32] LABS: Basophils % (A) 0 %; Eosinophils # (A) 0.4 k/uL (0-0.7); Eosinophils % (A) 3 %; HCT 40.8 % (34.0-46.0); HGB 13.6 gm/dL (11.4-16.0); Lymphocytes % (A) 18 %; MCH 29.3 pg (25.0-35.0); MCHC 33.3 g/dL (31.0-37.0); MCV 88.1 fL (80.0-100.0); Mean Platelet Volume 8.4; Monocytes # (A) 0.7 k/uL (0-1.0); Monocytes % (A) 6 %; Neutrophils % (A) 71 %; Platelet Count 200 k/uL (150-450); RBC 4.63 m/uL (3.80-5.40); RDW 15.2 % (11.5-15.5); WBC 11.3 k/uL (3.8-10.6)
[2023-04-18 22:47] LABS: Appearance,Urine Clear (Clear); Bilirubin,Urine Negative (Negative); Blood,Urine Negative (Negative); Color,Urine Yellow; Glucose,Urine (UA) Trace (Negative); Ketones,Urine Negative (Negative); Nitrite,Urine Negative (Negative); PH, Urine 5.5 (5.0-8.0); Protein,Urine Trace (Negative); Urobilinogen,Urine 0.2 mg/dL (<2.0)
[2023-04-18 22:48] LABS: Leukocyte Esterase,Urine Moderate (Negative)
[2023-04-18 22:53] LABS: Amorphous Sediment,Urine Rare /hpf; Bacteria,Urine Rare /hpf; Hyaline Casts,Urine 14 /lpf (0-2); Mucus,Urine Rare /hpf; RBC,Urine 2 /hpf (0-5); Squamous Epithelial Cell,Urine 2 /hpf (0-4); WBC,Urine 15 /hpf (0-5)
[2023-04-19] MEDS ORDERED: SODIUM CHLORIDE 0.9% 1,000 ML IV STA (00:51)
[2023-04-19] MEDS ORDERED: PHENAZOPYRIDINE 200 MG TAB PO STA (00:51)
[2023-04-19] MEDS ORDERED: HYDROmorphone 0.5 MG/0.5 ML SYRINGE IVP STA ×2 (01:02→03:22)
[2023-04-19 02:59] LABS: Glucose,Whole Blood 88 mg/dL (70-110)
--- NOTE | 2023-04-19 04:40 | CT ---
EXAM: CT Abdomen and Pelvis Without Intravenous Contrast CLINICAL HISTORY: right flank pain TECHNIQUE: Axial computed tomography images of the abdomen and pelvis without intravenous contrast. CTDI is 12.2 mGy and DLP is 624.6 mGy-cm. This CT exam was performed using one or more of the following dose reduction techniques: automated exposure control, adjustment of the mA and/or kV according to patient size, and/or use of iterative reconstruction technique. COMPARISON: No relevant prior studies available. FINDINGS: ABDOMEN: Liver: Unremarkable. Gallbladder and bile ducts: Cholecystectomy. No ductal dilation. Pancreas: Unremarkable. No ductal dilation. Spleen: Unremarkable. No splenomegaly. Adrenals: Unremarkable. No mass. Kidneys and ureters: No hydroureteronephrosis. Numerous tiny calcifications in both kidneys. No ureteral calculus. Stomach and bowel: Unremarkable. No obstruction. No mucosal thickening. PELVIS: Appendix: No findings to suggest acute appendicitis. Bladder: Unremarkable. No stones. Reproductive: Hysterectomy. ABDOMEN and PELVIS: Intraperitoneal space: Unremarkable. No free air. No significant fluid collection. Bones/joints: Extensive lumbar fusion. No acute abnormalities noted of the bones. No dislocation. Soft tissues: Unremarkable. Vasculature: Unremarkable. No abdominal aortic aneurysm. Lymph nodes: Unremarkable. No enlarged lymph nodes. IMPRESSION: No acute findings in the abdomen or pelvis. No hydronephrosis or ureteral calculus.
[2023-04-19 05:02] VITALS: BP 107/70; PULSE 124
== END 2023-04-19 04:57 | disposition home or self-care (01) ==
LOC: EC 20:54
DX: R30.0 Dysuria (principal); E11.9 Type 2 diabetes mellitus without complications; E78.5 Hyperlipidemia, unspecified; I10 Essential (primary) hypertension; M19.90 Unspecified osteoarthritis, unspecified site; G47.30 Sleep apnea, unspecified; F32.A Depression, unspecified; Z79.1 Long term (current) use of non-steroidal anti-inflammatories (NSAID); Z79.4 Long term (current) use of insulin; Z79.899 Other long term (current) drug therapy; Z88.2 Allergy status to sulfonamides; Z88.1 Allergy status to other antibiotic agents; Z88.5 Allergy status to narcotic agent; Z88.6 Allergy status to analgesic agent; Z88.0 Allergy status to penicillin; Z88.8 Allergy status to other drugs, medicaments and biological substances
CPT/HCPCS: 36415 ×2; 80053; 83605 ×2; 83690; 85025; 81001; 87086; 74176; 99284; 96374; 96376; 96361 ×2; J1170

== ENCOUNTER 2023-04-24 08:59 | Emergency (ER) | payer MEDICARE, BC ==
[2023-04-24] MEDS ORDERED: HYDROmorphone 1 MG/ML 1 ML SYRINGE IVP STA ×2 (09:13→11:07)
[2023-04-24] MEDS ORDERED: ONDANSETRON 4 MG/2 ML VIAL IVP STA (09:28)
[2023-04-24 09:36] LABS: Basophils % (A) 0 %; Eosinophils # (A) 0.3 k/uL (0-0.7); Eosinophils % (A) 4 %; HCT 34.6 % (34.0-46.0); HGB 11.5 gm/dL (11.4-16.0); Lymphocytes # (A) 1.6 k/uL (1.0-4.8); Lymphocytes % (A) 23 %; MCHC 33.3 g/dL (31.0-37.0); MCV 87.3 fL (80.0-100.0); Mean Platelet Volume 8.7; Monocytes # (A) 0.4 k/uL (0-1.0); Monocytes % (A) 6 %; Neutrophils # (A) 4.4 k/uL (1.3-7.7); Neutrophils % (A) 65 %; Platelet Count 164 k/uL (150-450); RBC 3.96 m/uL (3.80-5.40); RDW 15.4 % (11.5-15.5); WBC 6.8 k/uL (3.8-10.6)
[2023-04-24 09:47] LABS: ALT 16 U/L (4-34); AST 18 U/L (14-36); African American GFR (CKD) 66 (>60 ml/min/1.73 sqM); Albumin 3.6 g/dL (3.5-5.0); Alkaline Phosphatase 94 U/L (38-126); Anion Gap 10 mmol/L; Blood Urea Nitrogen 27 mg/dL (7-17); Calcium 8.9 mg/dL (8.4-10.2); Carbon Dioxide 24 mmol/L (22-30); Chloride 106 mmol/L (98-107); Glucose 128 mg/dL (74-99); Non-African American GFR(CKD) 57 (>60 ml/min/1.73 sqM); Sodium 140 mmol/L (137-145); Total Bilirubin 0.5 mg/dL (0.2-1.3); Total Protein 5.8 g/dL (6.3-8.2)
--- NOTE | 2023-04-24 09:56 | ED ---
Abdominal Pain HPI - General Chief Complaint: Abdominal Pain Stated Complaint: abd pain Time Seen by Provider: 04/24/23 09:07 Source: patient, RN notes reviewed Mode of arrival: EMS Limitations: no limitations - History of Present Illness Initial Comments: This is a 72-year-old female who presents to the emergency department for burning with urination, right lower quadrant pain, and right flank pain. Patient was recently treated with Macrobid for a UTI, and finished this about a week ago. She continues to complain of severe pain. She was evaluated here for this on 04/19, and discharged home after there was nothing demonstrated on her workup. Believes that she is now getting worse. She has nausea but no vomiting. Feels like she has had chills but has not measured any fevers. Denies any diarrhea or constipation. She takes Mcfaddin 10 mg at home, which is not managing her symptoms. MD Complaint: abdominal pain - Related Data Home Medications Medication Instructions Recorded Confirmed Meclizine [Antivert] 25 mg PO QID PRN 11/26/17 09/04/22 Ferrous Sulfate [Iron (65 MG 325 mg PO DAILY 10/08/18 09/04/22 Elemental)] Folic Acid 0.4 mg PO DAILY 10/08/18 09/04/22 L.acidoph,Paracasei, B.lactis 2 cap PO BID 10/08/18 09/04/22 [Probiotic] Melatonin 5 mg PO HS PRN 10/08/18 09/04/22 Potassium 99 mg PO DAILY 10/08/18 09/04/22 Thiamine [Vitamin B-1] 100 mg PO DAILY 10/08/18 09/04/22 Vitamin B-Complex Drops 1 drop PO BID 10/08/18 09/04/22 C,E,Zinc,Copper 11/Cessg6c/Lut 1 cap PO DAILY 06/25/20 09/04/22 [Ocuvite Adult 50 Plus Softgel] Cyanocobalamin (Vitamin B-12) 1,000 mcg PO DAILY 06/25/20 09/04/22 [Vitamin B-12] Spironolactone 50 mg PO DAILY 06/25/20 09/04/22 Vitamin E 400 unit PO DAILY 06/25/20 09/04/22 Brimonidine Tartrate [Alphagan P 1 drop RIGHT EYE BID 11/26/20 09/04/22 0.2% Ophth Soln] Glucagon [Gvoke Pfs 1-Pack Syringe] 1 mg SQ ONCE PRN 11/26/20 09/04/22 Pantoprazole Sodium [Protonix] 40 mg PO DAILY 11/26/20 09/04/22 busPIRone HCl [Buspar] 5 mg PO BID 02/04/21 09/04/22 Nystatin 1 applic TOPICAL BID PRN 02/17/21 09/04/22 Insulin Aspart (For Pump) [NovoLOG 0.01 unit SQ-PUMP CONTINUOUS 03/03/21 09/04/22 (For Pump)] Rosuvastatin Calcium [Crestor] 5 mg PO HS 08/15/21 09/04/22 Cholecalciferol [Vitamin D3 (25 75 mcg PO DAILY 09/21/21 09/04/22 Mcg = 1000 Iu)] Cranberry Fruit Extract [Cranberry] 1,000 mg PO DAILY 05/25/22 09/04/22 Dorzolamide 2% [Trusopt 2%] 1 drop RIGHT EYE BID 05/25/22 09/04/22 Magnesium Oxide [Magnesium] 500 mg PO DAILY 05/25/22 09/04/22 Multivit-Min/Folic Acid/Nom152 1 tab PO DAILY 05/25/22 09/04/22 [Alive Premium Adult Multivit] Promethazine HCl [Phenergan Syrup] 6.25 mg PO Q6H PRN 05/25/22 09/04/22 buPROPion HCL [Wellbutrin SR] 200 mg PO DAILY 05/25/22 09/04/22 hydroCHLOROthiazide [Hydrodiuril] 25 mg PO DAILY 05/25/22 09/04/22 Metoclopramide [Reglan] 5 mg PO TID PRN 07/17/22 09/04/22 lisinopriL [Zestril] 30 mg PO DAILY 07/17/22 09/04/22 methocarbamoL 1,000 mg PO Q6H PRN 07/17/22 09/04/22 Diclofenac Sodium Gel [Voltaren 1% 2 gm TOPICAL QID PRN 08/03/22 09/04/22 Gel] Cephalexin [Keflex] 250 mg PO DIRECTED 09/04/22 09/04/22 Previous Rx's Medication Instructions Recorded Aspirin 81 mg PO DAILY #0 07/02/18 Hydrocortisone [Cortef] 5 mg PO HS #0 05/30/22 Hydrocortisone [Cortef] 10 mg PO DAILY@1200 #0 05/30/22 Hydrocortisone [Cortef] 15 mg PO DAILY #0 05/30/22 Ondansetron Odt [Zofran ODT] 8 mg PO Q8HR PRN #15 tab 07/04/22 Metoprolol Succinate (ER) [Toprol 50 mg PO HS #30 tab 08/29/22 XL] Promethazine [Phenergan] 25 mg PO BID PRN #30 tab 08/29/22 Ciprofloxacin HCl [Cipro] 500 mg PO BID 4 Days #7 tab 08/30/22 Prochlorperazine [Compazine] 10 mg PO Q6HR PRN #20 tab 09/05/22 Butalb/APAP/Caff 50-325-40Mg 1 tab PO Q6H PRN #12 tab 09/06/22 [Fioricet 50-325-40] Gabapentin [Neurontin] 100 mg PO TID #9 cap 09/06/22 HYDROcodone/APAP 10-325MG [Mcfaddin 1 tab PO Q4H PRN #12 tab 09/06/22 10-325] Nirmatrelvir/Ritonavir [Paxlovid 1 each PO ONCE #1 pack 01/30/23 2X150 mg-100 mg (Eua)] Nitrofurantoin Monohyd/M-Cryst 100 mg PO Q12HR #6 cap 04/14/23 [Macrobid] Ciprofloxacin HCl [Cipro] 500 mg PO BID 7 Days #14 tab 04/24/23 Ondansetron Odt [Zofran Odt] 4 mg PO Q8HR PRN #15 tab 04/24/23 Allergies Allergy/AdvReac Type Severity Reaction Status Date / Time butorphanol tartrate Allergy BLISTERS Verified 04/24/23 09:08 [From Stadol] IN MOUTH ceftriaxone [From Rocephin] Allergy Unknown Verified 04/24/23 09:08 clarithromycin [From Biaxin] Allergy Rash/Hives Verified 04/24/23 09:08 clindamycin Allergy Unknown Verified 04/24/23 09:08 codeine Allergy Rash/Hives Verified 04/24/23 09:08 ergotamine tartrate Allergy Unknown Verified 04/24/23 09:08 [From Cafergot] erythromycin base Allergy RASH, GI Verified 04/24/23 09:08 [From E-Mycin] SYMPTOMS ketorolac tromethamine Allergy Rash/Hives Verified 04/24/23 09:08 [From Toradol] liraglutide [From Victoza] Allergy Rash/Hives Verified 04/24/23 09:08 morphine Allergy Rash/Hives Verified 04/24/23 09:08 Penicillins Allergy Rash/Hives Verified 04/24/23 09:08 on upper body pentazocine lactate Allergy SEVERE Verified 04/24/23 09:08 [From Talwin] BLISTERS IN MOUTH pregabalin [From Lyrica] Allergy Rash/Hives Verified 04/24/23 09:08 propoxyphene HCl Allergy Rash/Hives Verified 04/24/23 09:08 [From Darvon] Sulfa (Sulfonamide Allergy Rash/Hives Verified 04/24/23 09:08 Antibiotics) tramadol Allergy Unknown Verified 04/24/23 09:08 vancomycin Allergy Swelling Verified 04/24/23 09:08 monosodium glutamate [MSG] AdvReac Nausea & Verified 04/24/23 09:08 Vomiting nalbuphine HCl [From Nubain] AdvReac Nausea & Verified 04/24/23 09:08 Vomiting Review of Systems ROS Statement: Those systems with pertinent positive or pertinent negative responses have been documented in the HPI. ROS Other: All systems not noted in ROS Statement are negative. Past Medical History Past Medical History: Diabetes Mellitus, Deep Vein Thrombosis (DVT), Fibromyalgia, Hyperlipidemia, Hypertension, Osteoarthritis (OA), Pneumonia, Renal Disease, Sleep Apnea/CPAP/BIPAP, Vascular Disorder Additional Past Medical History / Comment(s): Pt recently admitted to [facility] with R flank pain. 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, DVT R calf in 1976, cardiac murmur, occipital neuraligia, balance issues-has narrowing of vessels "in the back of my head", vertigo, varicosities, states rt shoulder torn rotator cuff History of Any Multi-Drug Resistant Organisms: ESBL, MRSA, VRE Date of last positivie culture/infection: 11/25/20 ESBL;12/06/19 VRE; 03/10/11 MRSA MDRO Source:: Urine ESBL; Urine-VRE: MRSA 4th Right TOE Past Surgical History: Appendectomy, Back Surgery, Bladder Surgery, Breast Surgery, Cholecystectomy, Heart Catheterization, Hysterectomy, Orthopedic Surgery, Tonsillectomy Additional Past Surgical History / Comment(s): Lumbar fusions, bladder suspension, occipital nerve blocks, 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, R wrist/elbow nerve repair, bone removed R shoulder, 4th toe R foot partial amputation, bilateral feet/bunionectomies, R knee arthroscopies, R orbit decompression with ethmoidectomy and eyelid lift, EGD, colonoscopies, cystocopies, lithotripsy/stents, bilateral breast reduction, bilateral cataract removals, parathyroid surgery - April 2019, pain clinic procedures Past Anesthesia/Blood Transfusion Reactions: No Reported Reaction Additional Past Anesthesia/Blood Transfusion Reaction / Comment(s): never recieved blood Past Psychological History: Depression Smoking Status: Never smoker Past Alcohol Use History: Occasional Past Drug Use History: None Reported - Past Family History Father Family Medical History: Coronary Artery Disease (CAD), CVA/TIA, Diabetes Me llitus, Myocardial Infarction ([place]), Pneumonia Additional Family Medical History / Comment(s): Father at the age of 78yrs from [place] and pneumonia. Mother Family Medical History: Cancer, Congestive Heart Failure (CHF) Additional Family Medical History / Comment(s): Mother had uterine cancer. She recently at the age of 96yrs old from shingles. General Exam Limitations: no limitations General appearance: alert, in no apparent distress Head exam: Present: atraumatic, normocephalic, normal inspection Respiratory exam: Present: normal lung sounds bilaterally. Absent: respiratory distress, wheezes, rales, rhonchi, stridor Cardiovascular Exam: Present: regular rate, normal rhythm, normal heart sounds. Absent: systolic murmur, diastolic murmur, rubs, gallop, clicks GI/Abdominal exam: Present: soft, tenderness (RLQ), normal bowel sounds. Absent: distended Back exam: Present: CVA tenderness (R). Absent: CVA tenderness (L) Neurological exam: Present: alert, oriented X3, CN II-XII intact Psychiatric exam: Present: normal affect, normal mood Skin exam: Present: warm, dry, intact, normal color. Absent: rash Course Vital Signs 04/24/23 04/24/23 04/24/23 09:06 11:58 13:21 Temperature 98 F Pulse Rate 64 100 113 H Respiratory 16 18 18 Rate Blood Pressure 176/85 130/91 156/108 O2 Sat by Pulse 97 94 L 96 Oximetry 04/24/23 04/24/23 13:38 14:14 Temperature 98.2 F Pulse Rate 84 83 Respiratory 18 16 Rate Blood Pressure 107/61 130/84 O2 Sat by Pulse 97 99 Oximetry Medical Decision Making - Medical Decision Making This is a 72-year-old female who presents to the emergency department for abdominal pain. Was pt. sent in by a medical professional or institution? @ -No Did you speak to anyone other than the patient for history? @ -No Did you review nursing and triage notes? @ -Yes, and I agree, it is accurate with regards to the patient's symptoms. Were old charts reviewed? @ -CT scan of the abdomen/pelvis from 04/19 demonstrating no acute findings. Differential Diagnosis? @ -Differential Abdominal Pain Women: Appendicitis, Cholecystitis, diverticulosis, ischemic bowel, pancreatitis, hepatitis, UTI, gastroenteritis, AAA, incarcerated hernia, bowel obstruction, constipation, inflammatory bowel, hepatitis, peptic ulcer disease, splenic infarction, perforated viscus, vulvitis, ovarian torsion, PID, kidney stone, placenta abruption, this is not meant to be an all-inclusive list EKG interpreted by me (3pts min.)? @ -Not obtained X-rays interpreted by me (1pt min.)? @ -Not obtained CT interpreted by me (1pt min.)? @ -Not obtained U/S interpreted by me (1pt. min.)? @ -Not obtained What testing was considered but not performed? (CT, X-rays, U/S, labs)? Why? @ -I was going to order a computed tomography scan of the abdomen and pelvis to evaluate for signs of a kidney stone in light of the flank pain and blood in her urine. However, the patient declined. What meds were considered but not given? Why? @ -None Did you discuss the management of the patient with other professionals? @ -No Did you reconcile home meds? @ -No Was smoking cessation discussed for >3mins.? @ -No Was critical care preformed (if so, how long)? @ -No Were there social determinants of health that impacted care today? How? (Homelessness, low income, unemployed, alcoholism, drug addiction, transportat ion, low edu. Level, literacy, decrease access to med. care, shelter, rehab)? @ -No Was there de-escalation of care discussed even if they declined? (Discuss DNR or withdrawal of care, Hospice)? @ -No What co-morbidities impacted this encounter? (DM, HTN, Smoking, COPD, CAD, Cancer, CVA, Hep., AIDS, mental health diagnosis, sleep apnea, morbid obesity)? @ -DM, fibromyalgia, renal disease Was patient admitted / discharged? @ -Discharged. Lab work obtained and found to be nonactionable. Urinalysis consistent with infection and does reveal a moderate amount of blood. In light of the patient's increasing pain and blood in her urine, I had planned on ordering a computed tomography scan of the abdomen and pelvis to evaluate for signs of a kidney stone. However, the patient declined. Urine was sent for culture. Her symptoms were also well controlled in the emergency department. Patient does have multiple antibiotic allergies and was recently on Macrobid, s he was subsequently given a prescription for ciprofloxacin. Rx for Zofran provided as well for nausea and vomiting. She was otherwise discharged home in stable condition with instructions to follow up with her PCP. Undiagnosed new problem with uncertain prognosis? @ -None Drug Therapy requiring intensive monitoring for toxicity (Heparin, Nitro, Insulin, Cardizem)? @ -None Were any procedures done? @ -None Diagnosis/symptom? @ -UTI, nausea and vomiting Acute, or Chronic, or Acute on Chronic? @ -Acute Uncomplicated (without systemic symptoms) or Complicated (systemic symptoms)? @ -Complicated Side effects of treatment? @ -None Exacerbation, Progression, or Severe Exacerbation] @ -Not applicable Poses a threat to life or bodily function? @ -No Return precautions reviewed in depth, the patient is instructed to return to the emergency department with any new, worsening, or concerning symptoms. Patient verbalized understanding. This case was discussed in detail with the attending ED physician, Dr. Gallegos. Presentation, findings, and treatment plan discussed in detail as well. - Lab Data Result diagrams: 04/24/23 09:23 04/24/23 09:23 Lab Results 04/24/23 04/24/23 04/24/23 Range/Units 09: 09: 09:23 WBC 6.8 (3.8-10.6) k/uL RBC 3.96 (3.80-5.40) m/uL Hgb 11.5 (11.4-16.0) gm/dL Hct 34.6 (34.0-46.0) % MCV 87.3 (80.0-100.0) fL MCH 29.0 (25.0-35.0) pg MCHC 33.3 (31.0-37.0) g/dL RDW 15.4 (11.5-15.5) % Plt Count 164 (150-450) k/uL MPV 8.7 Neutrophils % 65 % Lymphocytes % 23 % Monocytes % 6 % Eosinophils % 4 % Basophils % 0 % Neutrophils # 4.4 (1.3-7.7) k/uL Lymphocytes # 1.6 (1.0-4.8) k/uL Monocytes # 0.4 (0-1.0) k/uL Eosinophils # 0.3 (0-0.7) k/uL Basophils # 0.0 (0-0.2) k/uL Sodium 140 (137-145) mmol/L Potassium 4.0 (3.5-5.1) mmol/L Chloride 106 (98-107) mmol/L Carbon Dioxide 24 (22-30) mmol/L Anion Gap 10 mmol/L BUN 27 H (7-17) mg/dL Creatinine 0.99 (0.52-1.04) mg/dL Est GFR (CKD-EPI)AfAm 66 (>60 ml/min/1.73 sqM) Est GFR (CKD-EPI)NonAf 57 (>60 ml/min/1.73 sqM) Glucose 128 H (74-99) mg/dL Plasma Lactic Acid Sudhir 1.5 (0.7-2.0) mmol/L Calcium 8.9 (8.4-10.2) mg/dL Total Bilirubin 0.5 (0.2-1.3) mg/dL AST 18 (14-36) U/L ALT 16 (4-34) U/L Alkaline Phosphatase 94 (38-126) U/L Total Protein 5.8 L (6.3-8.2) g/dL Albumin 3.6 (3.5-5.0) g/dL Urine Color Urine Appearance (Clear) Urine pH (5.0-8.0) Ur Specific [place] (1.001-1.035) Urine Protein (Negative) Urine Glucose (UA) (Negative) Urine Ketones (Negative) Urine Blood (Negative) Urine Nitrite (Negative) Urine Bilirubin (Negative) Urine Urobilinogen (<2.0) mg/dL Ur Leukocyte Esterase (Negative) Urine RBC (0-5) /hpf Urine WBC (0-5) /hpf Ur Squamous Epith Cells (0-4) /hpf Urine Mucus (None) /hpf 04/24/23 Range/Units 10:26 WBC (3.8-10.6) k/uL RBC (3.80-5.40) m/uL Hgb (11.4-16.0) gm/dL Hct (34.0-46.0) % MCV (80.0-100.0) fL MCH (25.0-35.0) pg MCHC (31.0-37.0) g/dL RDW (11.5-15.5) % Plt Count (150-450) k/uL MPV Neutrophils % % Lymphocytes % % Monocytes % % Eosinophils % % Basophils % % Neutrophils # (1.3-7.7) k/uL Lymphocytes # (1.0-4.8) k/uL Monocytes # (0-1.0) k/uL Eosinophils # (0-0.7) k/uL Basophils # (0-0.2) k/uL Sodium (137-145) mmol/L Potassium (3.5-5.1) mmol/L Chloride (98-107) mmol/L Carbon Dioxide (22-30) mmol/L Anion Gap mmol/L BUN (7-17) mg/dL Creatinine (0.52-1.04) mg/dL Est GFR (CKD-EPI)AfAm (>60 ml/min/1.73 sqM) Est GFR (CKD-EPI)NonAf (>60 ml/min/1.73 sqM) Glucose (74-99) mg/dL Plasma Lactic Acid Sudhir (0.7-2.0) mmol/L Calcium (8.4-10.2) mg/dL Total Bilirubin (0.2-1.3) mg/dL AST (14-36) U/L ALT (4-34) U/L Alkaline Phosphatase (38-126) U/L Total Protein (6.3-8.2) g/dL Albumin (3.5-5.0) g/dL Urine Color Light Yellow Urine Appearance Cloudy H (Clear) Urine pH 5.5 (5.0-8.0) Ur Specific [place] 1.025 (1.001-1.035) Urine Protein Trace H (Negative) Urine Glucose (UA) Negative (Negative) Urine Ketones Negative (Negative) Urine Blood Moderate H (Negative) Urine Nitrite Negative (Negative) Urine Bilirubin Negative (Negative) Urine Urobilinogen <2.0 (<2.0) mg/dL Ur Leukocyte Esterase Large H (Negative) Urine RBC 5 (0-5) /hpf Urine WBC 30 H (0-5) /hpf Ur Squamous Epith Cells 2 (0-4) /hpf Urine Mucus Rare H (None) /hpf Disposition Clinical Impression: UTI (urinary tract infection), Nausea and vomiting Disposition: HOME SELF-CARE Instructions (If sedation given, give patient instructions): Urinary Tract Infection in Women (ED) Additional Instructions: Return to the emergency department with any new, worsening, or concerning symptoms. Take the antibiotic as prescribed for 7 days. You can take the Zofran up to every 8 hours as needed for nausea vomiting. Follow up with your primary care provider in 1-2 days. Prescriptions: Ciprofloxacin HCl [Cipro] 500 mg PO BID 7 Days #14 tab Ondansetron Odt [Zofran Odt] 4 mg PO Q8HR PRN #15 tab PRN Reason: Nausea And Vomiting Is patient prescribed a controlled substance at d/c from ED?: No Referrals: Andrew Gonsales MD [Primary Care Provider] - 1-2 days
[2023-04-24 10:52] LABS: Appearance,Urine Cloudy (Clear); Bilirubin,Urine Negative (Negative); Blood,Urine Moderate (Negative); Color,Urine Light Yellow; Glucose,Urine (UA) Negative (Negative); Ketones,Urine Negative (Negative); Leukocyte Esterase,Urine Large (Negative); Mucus,Urine Rare /hpf; Nitrite,Urine Negative (Negative); PH, Urine 5.5 (5.0-8.0); Protein,Urine Trace (Negative); RBC,Urine 5 /hpf (0-5); Specific Gravity,Urine 1.025 (1.001-1.035); Squamous Epithelial Cell,Urine 2 /hpf (0-4); Urobilinogen,Urine <2.0 mg/dL (<2.0); WBC,Urine 30 /hpf (0-5)
[2023-04-24] MEDS ORDERED: METOCLOPRAMIDE 5 MG/ML 2 ML VIAL IVP STA (11:07)
[2023-04-24] MEDS ORDERED: LORazepam 2 MG/ML INJ IV STA ×2 (12:10→12:53)
[2023-04-24] MEDS ORDERED: SODIUM CHLORIDE 0.9% 1,000 ML IV STA (12:53)
[2023-04-24] MEDS ORDERED: LEVOFLOXACIN 500MG-D5W PMX 500 MG in DEXTROSE/WATER 1 100ML.BAG IVPB STA (13:21)
[2023-04-24] MEDS ORDERED: LABETALOL 5 MG/ML VIAL MDV IVP STA (13:21)
[2023-04-24 14:30] VITALS: BP 130/84; PULSE 83; RESP 16; TEMP 98.2
== END 2023-04-24 14:26 | disposition home or self-care (01) ==
LOC: EC 08:59
DX: N39.0 Urinary tract infection, site not specified (principal); E11.40 Type 2 diabetes mellitus with diabetic neuropathy, unspecified; E11.36 Type 2 diabetes mellitus with diabetic cataract; I10 Essential (primary) hypertension; E78.5 Hyperlipidemia, unspecified; M79.7 Fibromyalgia; F32.A Depression, unspecified; Z79.4 Long term (current) use of insulin; Z79.899 Other long term (current) drug therapy; Z88.1 Allergy status to other antibiotic agents; Z88.0 Allergy status to penicillin; Z88.2 Allergy status to sulfonamides; Z88.5 Allergy status to narcotic agent; Z88.8 Allergy status to other drugs, medicaments and biological substances; Z90.49 Acquired absence of other specified parts of digestive tract
CPT/HCPCS: 36415; 93005; 80053; 83605; 85025; 81001; 87086; 99285; 96365; 96375 ×5; 96376; 96361; J2060; J2765; J2405; J1956; J1170; J1920

== ENCOUNTER 2023-04-24 19:59 | Emergency (ER) | payer MEDICARE, BC ==
[2023-04-24 20:20] VITALS: TEMP 98.3
[2023-04-24] MEDS ORDERED: SODIUM CHLORIDE 0.9% 1,000 ML IV STA (20:55)
[2023-04-24] MEDS ORDERED: ONDANSETRON 4 MG/2 ML VIAL IVP STA (21:05)
--- NOTE | 2023-04-24 21:06 | ED ---
General Adult HPI - General Chief complaint: Recheck/Abnormal Lab/Rx Stated complaint: Revisit - Pain Time Seen by Provider: 04/24/23 20:23 Source: patient Mode of arrival: wheelchair Limitations: no limitations - History of Present Illness Initial comments: 72-year-old female presents to the ED with a chief complaint of dysuria. Patient previously seen on 04/18/23 with complaints of dysuria, right lower abdominal pain, right flank pain. CT abdomen and pelvis at this time which showed no acute process. Was discharged home with antibiotics. Patient again seen here earlier today with the same complaints. Laboratory studies from earlier today reviewed. Laboratory studies from earlier today show no elevation in white count and otherwise unremarkable CBC, a largely unremarkable chemistry panel, and a urine that showed 30 white blood cells, large leukocyte esterase, moderate blood, 5 RBCs. At this time, CT of the abdomen and pelvis was to be obtained due to some complaints of continued pain and also some findings of blood in the urine possibly concerning for a stone. However at this time patient declined. Since discharge, patient reports continued pain and nausea vomiting presentation to the ED for further evaluation. Earlier today patient did receive 2 mg of Dilaudid in total. Also had received ciprofloxacin 500 mg IV. - Related Data Home Medications Medication Instructions Recorded Confirmed Meclizine [Antivert] 25 mg PO QID PRN 11/26/17 09/04/22 Ferrous Sulfate [Iron (65 MG 325 mg PO DAILY 10/08/18 09/04/22 Elemental)] Folic Acid 0.4 mg PO DAILY 10/08/18 09/04/22 L.acidoph,Paracasei, B.lactis 2 cap PO BID 10/08/18 09/04/22 [Probiotic] Melatonin 5 mg PO HS PRN 10/08/18 09/04/22 Potassium 99 mg PO DAILY 10/08/18 09/04/22 Thiamine [Vitamin B-1] 100 mg PO DAILY 10/08/18 09/04/22 Vitamin B-Complex Drops 1 drop PO BID 10/08/18 09/04/22 C,E,Zinc,Copper 11/Oytpb7o/Lut 1 cap PO DAILY 06/25/20 09/04/22 [Ocuvite Adult 50 Plus Softgel] Cyanocobalamin (Vitamin B-12) 1,000 mcg PO DAILY 06/25/20 09/04/22 [Vitamin B-12] Spironolactone 50 mg PO DAILY 06/25/20 09/04/22 Vitamin E 400 unit PO DAILY 06/25/20 09/04/22 Brimonidine Tartrate [Alphagan P 1 drop RIGHT EYE BID 11/26/20 09/04/22 0.2% Ophth Soln] Glucagon [Gvoke Pfs 1-Pack Syringe] 1 mg SQ ONCE PRN 11/26/20 09/04/22 Pantoprazole Sodium [Protonix] 40 mg PO DAILY 11/26/20 09/04/22 busPIRone HCl [Buspar] 5 mg PO BID 02/04/21 09/04/22 Nystatin 1 applic TOPICAL BID PRN 02/17/21 09/04/22 Insulin Aspart (For Pump) [NovoLOG 0.01 unit SQ-PUMP CONTINUOUS 03/03/21 09/04/22 (For Pump)] Rosuvastatin Calcium [Crestor] 5 mg PO HS 08/15/21 09/04/22 Cholecalciferol [Vitamin D3 (25 75 mcg PO DAILY 09/21/21 09/04/22 Mcg = 1000 Iu)] Cranberry Fruit Extract [Cranberry] 1,000 mg PO DAILY 05/25/22 09/04/22 Dorzolamide 2% [Trusopt 2%] 1 drop RIGHT EYE BID 05/25/22 09/04/22 Magnesium Oxide [Magnesium] 500 mg PO DAILY 05/25/22 09/04/22 Multivit-Min/Folic Acid/[id number] 1 tab PO DAILY 05/25/22 09/04/22 [Alive Premium Adult Multivit] Promethazine HCl [Phenergan Syrup] 6.25 mg PO Q6H PRN 05/25/22 09/04/22 buPROPion HCL [Wellbutrin SR] 200 mg PO DAILY 05/25/22 09/04/22 hydroCHLOROthiazide [Hydrodiuril] 25 mg PO DAILY 05/25/22 09/04/22 Metoclopramide [Reglan] 5 mg PO TID PRN 07/17/22 09/04/22 lisinopriL [Zestril] 30 mg PO DAILY 07/17/22 09/04/22 methocarbamoL 1,000 mg PO Q6H PRN 07/17/22 09/04/22 Diclofenac Sodium Gel [Voltaren 1% 2 gm TOPICAL QID PRN 08/03/22 09/04/22 Gel] Cephalexin [Keflex] 250 mg PO DIRECTED 09/04/22 09/04/22 Previous Rx's Medication Instructions Recorded Aspirin 81 mg PO DAILY #0 07/02/18 Hydrocortisone [Cortef] 5 mg PO HS #0 05/30/22 Hydrocortisone [Cortef] 10 mg PO DAILY@1200 #0 05/30/22 Hydrocortisone [Cortef] 15 mg PO DAILY #0 05/30/22 Ondansetron Odt [Zofran ODT] 8 mg PO Q8HR PRN #15 tab 07/04/22 Metoprolol Succinate (ER) [Toprol 50 mg PO HS #30 tab 08/29/22 XL] Promethazine [Phenergan] 25 mg PO BID PRN #30 tab 08/29/22 Ciprofloxacin HCl [Cipro] 500 mg PO BID 4 Days #7 tab 08/30/22 Prochlorperazine [Compazine] 10 mg PO Q6HR PRN #20 tab 09/05/22 Butalb/APAP/Caff 50-325-40Mg 1 tab PO Q6H PRN #12 tab 09/06/22 [Fioricet 50-325-40] Gabapentin [Neurontin] 100 mg PO TID #9 cap 09/06/22 HYDROcodone/APAP 10-325MG [Cisco 1 tab PO Q4H PRN #12 tab 09/06/22 10-325] Nirmatrelvir/Ritonavir [Paxlovid 1 each PO ONCE #1 pack 01/30/23 2X150 mg-100 mg (Eua)] Nitrofurantoin Monohyd/M-Cryst 100 mg PO Q12HR #6 cap 04/14/23 [Macrobid] Ciprofloxacin HCl [Cipro] 500 mg PO BID 7 Days #14 tab 04/24/23 Ondansetron Odt [Zofran Odt] 4 mg PO Q8HR PRN #15 tab 04/24/23 Allergies Allergy/AdvReac Type Severity Reaction Status Date / Time butorphanol tartrate Allergy BLISTERS Verified 04/24/23 20:04 [From Stadol] IN MOUTH ceftriaxone [From Rocephin] Allergy Unknown Verified 04/24/23 20:04 clarithromycin [From Biaxin] Allergy Rash/Hives Verified 04/24/23 20:04 clindamycin Allergy Unknown Verified 04/24/23 20:04 codeine Allergy Rash/Hives Verified 04/24/23 20:04 ergotamine tartrate Allergy Unknown Verified 04/24/23 20:04 [From Cafergot] erythromycin base Allergy RASH, GI Verified 04/24/23 20:04 [From E-Mycin] SYMPTOMS ketorolac tromethamine Allergy Rash/Hives Verified 04/24/23 20:04 [From Toradol] liraglutide [From Victoza] Allergy Rash/Hives Verified 04/24/23 20:04 morphine Allergy Rash/Hives Verified 04/24/23 20:04 Penicillins Allergy Rash/Hives Verified 04/24/23 20:04 on upper body pentazocine lactate Allergy SEVERE Verified 04/24/23 20:04 [From Talwin] BLISTERS IN MOUTH pregabalin [From Lyrica] Allergy Rash/Hives Verified 04/24/23 20:04 propoxyphene HCl Allergy Rash/Hives Verified 04/24/23 20:04 [From Darvon] Sulfa (Sulfonamide Allergy Rash/Hives Verified 04/24/23 20:04 Antibiotics) tramadol Allergy Unknown Verified 04/24/23 20:04 vancomycin Allergy Swelling Verified 04/24/23 20:04 monosodium glutamate [MSG] AdvReac Nausea & Verified 04/24/23 20:04 Vomiting nalbuphine HCl [From Nubain] AdvReac Nausea & Verified 04/24/23 20:04 Vomiting Review of Systems ROS Statement: Those systems with pertinent positive or pertinent negative responses have been documented in the HPI. ROS Other: All systems not noted in ROS Statement are negative. Past Medical History Past Medical History: Diabetes Mellitus, Deep Vein Thrombosis (DVT), Fibromyalgia, Hyperlipidemia, Hypertension, Osteoarthritis (OA), Pneumonia, Renal Disease, Sleep Apnea/CPAP/BIPAP, Vascular Disorder Additional Past Medical History / Comment(s): Pt recently admitted to [facility] with R flank pain. 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, DVT R calf in 1976, cardiac murmur, occipital neuraligia, balance issues-has narrowing of vessels "in the back of my head", vertigo, varicosities, states rt shoulder torn rotator cuff History of Any Multi-Drug Resistant Organisms: ESBL, MRSA, VRE Date of last positivie culture/infection: 11/25/20 ESBL;12/06/19 VRE; 03/10/11 MRSA MDRO Source:: Urine ESBL; Urine-VRE: MRSA 4th Right TOE Past Surgical History: Appendectomy, Back Surgery, Bladder Surgery, Breast Surgery, Cholecystectomy, Heart Catheterization, Hysterectomy, Orthopedic Surgery, Tonsillectomy Additional Past Surgical History / Comment(s): Lumbar fusions, bladder suspension, occipital nerve blocks, 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, R wrist/elbow nerve repair, bone removed R shoulder, 4th toe R foot partial amputation, bilateral feet/bunionectomies, R knee arthroscopies, R orbit decompression with ethmoidectomy and eyelid lift, EGD, colonoscopies, cystocopies, lithotripsy/stents, bilateral breast reduction, bilateral cataract removals, parathyroid surgery - April 2019, pain clinic procedures Past Anesthesia/Blood Transfusion Reactions: No Reported Reaction Additional Past Anesthesia/Blood Transfusion Reaction / Comment(s): never recieved blood Past Psychological History: Depression Smoking Status: Never smoker Past Alcohol Use History: Occasional Past Drug Use History: None Reported - Past Family History Father Family Medical History: Coronary Artery Disease (CAD), CVA/TIA, Diabetes Mellit us, Myocardial Infarction (NH), Pneumonia Additional Family Medical History / Comment(s): Father at the age of 78yrs from NH and pneumonia. Mother Family Medical History: Cancer, Congestive Heart Failure (CHF) Additional Family Medical History / Comment(s): Mother had uterine cancer. She recently at the age of 96yrs old from shingles. General Exam Limitations: no limitations General appearance: alert Neck exam: Present: normal inspection Respiratory exam: Present: normal lung sounds bilaterally Cardiovascular Exam: Present: regular rate, normal rhythm GI/Abdominal exam: Present: soft (Flank tenderness to percussion. Diffuse abdominal tenderness to palpation. No rebound guarding or rigidity.), normal bowel sounds Neurological exam: Present: alert, oriented X3 Skin exam: Present: warm, dry Course Vital Signs 04/24/23 20:01 Temperature 98.3 F Pulse Rate 86 Respiratory 18 Rate Blood Pressure 135/72 O2 Sat by Pulse 95 Oximetry Medical Decision Making - Medical Decision Making Was pt. sent in by a medical professional or institution (, [facility], [facility], urgent care, hospital, or long term...) When possible be specific @ -No Did you speak to anyone other than the patient for history (EMS, parent, family, police, friend...)? What history was obtained from this source @ -No Did you review nursing and triage notes (agree or disagree)? Why? @ -I reviewed and agree with nursing and triage notes Were old charts reviewed (outside hosp., previous admission, EMS record, old EKG, old radiological studies, urgent care reports/EKG's, long term records)? Report findings @ -No old charts were reviewed Differential Diagnosis (chest pain, altered mental status, abdominal pain women, abdominal pain men, vaginal bleeding, weakness, fever, dyspnea, syncope, headache, dizziness, GI bleed, back pain, seizure, CVA, palpatations, mental health, musculoskeletal)? @ -Differential Abdominal Pain Women: Appendicitis, Cholecystitis, diverticulosis, ischemic bowel, pancreatitis, hepa titis, UTI, gastroenteritis, AAA, incarcerated hernia, bowel obstruction, constipation, inflammatory bowel, hepatitis, peptic ulcer disease, splenic infarction, perforated viscus, vulvitis, ovarian torsion, PID, kidney stone, placenta abruption, this is not meant to be an all-inclusive list EKG interpreted by me (3pts min.). @ -None X-rays interpreted by me (1pt min.). @ -None done CT interpreted by me (1pt min.). @ -CT of the abdomen and pelvis interpreted by me showing no evidence of acute finding. U/S interpreted by me (1pt. min.). @ -None done What testing was considered but not performed or refused? (CT, X-rays, U/S, labs)? Why? @ -None What meds were considered but not given or refused? Why? @ -Patient did continue complaining of pain. In light of medications received today, has already received 3 mg of Dilaudid. Laboratory studies unremarkable at this time and so our imaging studies. A gram of Tylenol offered but reported that this does not work for her. States that the only thing that works to help her pain is Dilaudid. Did you discuss the management of the patient with other professionals (professionals i.e. , PA, [facility], lab, RT, psych nurse, licensed social worker, marketing designer, teacher, global chief experience officer, ed case manager)? Give summary @ -No Was smoking cessation discussed for >3mins.? @ -No Was critical care preformed (if so, how long)? @ -No Were there social determinants of health that impacted care today? How? (Homeles sness, low income, unemployed, alcoholism, drug addiction, transportation, low edu. Level, literacy, decrease access to med. care, senior care, rehab)? @ -No Was there de-escalation of care discussed even if they declined (Discuss DNR or withdrawal of care, Hospice)? DNR status @ -No What co-morbidities impacted this encounter? (DM, HTN, Smoking, COPD, CAD, Cancer, CVA, ARF, Chemo, Hep., AIDS, mental health diagnosis, sleep apnea, morbid obesity)? @ -None Was patient admitted / discharged? Hospital course, mention meds given and route, prescriptions, significant lab abnormalities, going to OR and other pertinent info. @ -Discharge 72-year-old female presenting to the ED due to continued complaints of flank pain, abdominal pain, and dysuria. Laboratory studies from earlier reviewed. CBC unremarkable. Chemistry panel largely unremarkable. Urine did not show any significant evidence of infection with only 30 white blood cells, contamination with 2 squamous cells, 5 RBCs, leukocytes esterase. CT of the abdomen and pelvis without contrast was added on on her repeat visit today which did not show any acute findings. Patient ready had 500 mg IV ciprofloxacin provided to her during her previous visit and was also provided prescription for ciprofloxacin and Zofran. At this time, patient discharged home in stable condition. Undiagnosed new problem with uncertain prognosis? @ -No Drug Therapy requiring intensive monitoring for toxicity (Heparin, Nitro, Insulin, Cardizem)? @ -No Were any procedures done? @ -No Diagnosis/symptom? @ -Flank pain, abdominal pain, dysuria Acute, or Chronic, or Acute on Chronic? @ -Acute Uncomplicated (without systemic symptoms) or Complicated (systemic symptoms)? @ -Uncomplicated Side effects of treatment? @ -No Exacerbation, Progression, or Severe Exacerbation? @ -No Poses a threat to life or bodily function? How? (Chest pain, USA, NH, pneumonia, PE, COPD, DKA, ARF, appy, cholecystitis, CVA, Diverticulitis, Homicidal, Suicidal, threat to staff... and all critical care pts) @ -No Disposition Clinical Impression: Flank pain Disposition: HOME SELF-CARE Condition: Good Additional Instructions: Please return to the Emergency Department if symptoms worsen or any other concerns. Is patient prescribed a controlled substance at d/c from ED?: No Referrals: Andrew Gonsales MD [Primary Care Provider] - 1-2 days Time of Disposition: 23:03
[2023-04-24] MEDS ORDERED: HYDROmorphone 1 MG/ML 1 ML SYRINGE IVP STA (21:16)
--- NOTE | 2023-04-24 22:47 | CT ---
EXAMINATION TYPE: CT abdomen pelvis wo con DATE OF EXAM: 04/24/2023 COMPARISON: 04/19/2023 INDICATION: Right flank pain DLP: 820 mGycm, Automated exposure control for dose reduction was used. CONTRAST: 0 mL of Isovue 300. Study performed without Oral Contrast TECHNIQUE: Axial images were obtained from above the diaphragm to the pubic rami in the axial plane a t 5 mm thick sections. Reconstructed images are reviewed on the computer in the coronal plane. FINDINGS: Limited CT sections are obtained the lung bases. Size is enlarged. Minimal subsegmental atelectasis may be present. Small hiatal hernia is present. CT ABDOMEN: Liver: Normal Spleen: Normal Pancreas: Normal Adrenal glands: The adrenal glands are normal. Gallbladder: Normal Kidneys: No masses are evident. No hydronephrosis is present. There is a 3.6 cm cyst on the superio r anterior left kidney. There is a 2.1 cm cyst on the mid right kidney. There is a punctate calcifica tion at the superior pole right kidney. Aorta: Vascular calcification is within the aorta. Inferior vena cava: Normal. CT PELVIS: Loops of bowel within the abdomen and pelvis are normal. This study is without oral contrast limi ting bowel evaluation. Appendix: Not visualized. No dilated tubular structure or inflammatory changes evident. Urinary bladder: Normal. Genitourinary structures: Uterus and ovaries are not identified. Osseous structures: No suspicious lytic or sclerotic lesions. Postsurgical changes are through the kwaku mbar spine. Prior ischio rami and pubic rami fractures appear to be present IMPRESSION: 1. There may be a punctate calcification without obstruction in the superior pole left kidney. 2. Bilateral renal cysts. 3. Cardiomegaly. 4. Hiatal hernia. 5 no specific abnormality to account for right flank pain
[2023-04-24 23:31] VITALS: BP 162/78; PULSE 103; RESP 20
== END 2023-04-24 23:55 | disposition home or self-care (01) ==
LOC: EC 19:59
DX: R10.31 Right lower quadrant pain (principal); E11.9 Type 2 diabetes mellitus without complications; E78.5 Hyperlipidemia, unspecified; I10 Essential (primary) hypertension; M19.90 Unspecified osteoarthritis, unspecified site; F32.A Depression, unspecified; Z86.718 Personal history of other venous thrombosis and embolism; Z88.0 Allergy status to penicillin; Z88.5 Allergy status to narcotic agent; Z88.2 Allergy status to sulfonamides; Z88.8 Allergy status to other drugs, medicaments and biological substances; Z90.49 Acquired absence of other specified parts of digestive tract; Z79.899 Other long term (current) drug therapy; Z79.4 Long term (current) use of insulin
CPT/HCPCS: 74176; 99284; 96374; 96375; 96361; J2405; J1170

== ENCOUNTER 2023-04-25 18:06 | Emergency (ER) | payer MEDICARE, BC ==
[2023-04-25] MEDS ORDERED: HYDROCORTISONE SUCCINATE 100 MG/2 ML VIAL IV STA (18:18)
[2023-04-25] MEDS ORDERED: SODIUM CHLORIDE 0.9% 500 ML 500 ML IV STA (18:21)
[2023-04-25 18:33] VITALS: TEMP 97.8
[2023-04-25] MEDS ORDERED: droPERidol 5 MG/2 ML VIAL IVP ONE (18:36)
--- NOTE | 2023-04-25 18:36 | ED ---
General Adult HPI - General Chief complaint: Chest Pain Stated complaint: chest pain Time Seen by Provider: 04/25/23 18:20 Source: patient, RN notes reviewed, old records reviewed Mode of arrival: ambulatory Limitations: no limitations - History of Present Illness Initial comments: This is a 72-year-old female who states he was starting to have chest pain at about 2:00 today and has been constant ever since. Patient states she had no radiation of the pain. Patient denies any diaphoretic episodes. Patient denies any difficulty breathing. Patient states in the center of her chest that sharp in nature. Patient denies any recent fever chills or cough. Patient's been to the ER 3 times in 2 days. Patient denies any swelling to the legs or calf tenderness more than normal. Patient denies abdominal pain patient denies nausea vomiting diarrhea. Patient immediately was asking for Dilaudid - Related Data Home Medications Medication Instructions Recorded Confirmed Meclizine [Antivert] 25 mg PO QID PRN 11/26/17 09/04/22 Ferrous Sulfate [Iron (65 MG 325 mg PO DAILY 10/08/18 09/04/22 Elemental)] Folic Acid 0.4 mg PO DAILY 10/08/18 09/04/22 L.acidoph,Paracasei, B.lactis 2 cap PO BID 10/08/18 09/04/22 [Probiotic] Melatonin 5 mg PO HS PRN 10/08/18 09/04/22 Potassium 99 mg PO DAILY 10/08/18 09/04/22 Thiamine [Vitamin B-1] 100 mg PO DAILY 10/08/18 09/04/22 Vitamin B-Complex Drops 1 drop PO BID 10/08/18 09/04/22 C,E,Zinc,Copper 11/Ymuls2m/Lut 1 cap PO DAILY 06/25/20 09/04/22 [Ocuvite Adult 50 Plus Softgel] Cyanocobalamin (Vitamin B-12) 1,000 mcg PO DAILY 06/25/20 09/04/22 [Vitamin B-12] Spironolactone 50 mg PO DAILY 06/25/20 09/04/22 Vitamin E 400 unit PO DAILY 06/25/20 09/04/22 Brimonidine Tartrate [Alphagan P 1 drop RIGHT EYE BID 11/26/20 09/04/22 0.2% Ophth Soln] Glucagon [Gvoke Pfs 1-Pack Syringe] 1 mg SQ ONCE PRN 11/26/20 09/04/22 Pantoprazole Sodium [Protonix] 40 mg PO DAILY 11/26/20 09/04/22 busPIRone HCl [Buspar] 5 mg PO BID 02/04/21 09/04/22 Nystatin 1 applic TOPICAL BID PRN 02/17/21 09/04/22 Insulin Aspart (For Pump) [NovoLOG 0.01 unit SQ-PUMP CONTINUOUS 03/03/21 09/04/22 (For Pump)] Rosuvastatin Calcium [Crestor] 5 mg PO HS 08/15/21 09/04/22 Cholecalciferol [Vitamin D3 (25 75 mcg PO DAILY 09/21/21 09/04/22 Mcg = 1000 Iu)] Cranberry Fruit Extract [Cranberry] 1,000 mg PO DAILY 05/25/22 09/04/22 Dorzolamide 2% [Trusopt 2%] 1 drop RIGHT EYE BID 05/25/22 09/04/22 Magnesium Oxide [Magnesium] 500 mg PO DAILY 05/25/22 09/04/22 Multivit-Min/Folic Acid/Xoh297 1 tab PO DAILY 05/25/22 09/04/22 [Alive Premium Adult Multivit] Promethazine HCl [Phenergan Syrup] 6.25 mg PO Q6H PRN 05/25/22 09/04/22 buPROPion HCL [Wellbutrin SR] 200 mg PO DAILY 05/25/22 09/04/22 hydroCHLOROthiazide [Hydrodiuril] 25 mg PO DAILY 05/25/22 09/04/22 Metoclopramide [Reglan] 5 mg PO TID PRN 07/17/22 09/04/22 lisinopriL [Zestril] 30 mg PO DAILY 07/17/22 09/04/22 methocarbamoL 1,000 mg PO Q6H PRN 07/17/22 09/04/22 Diclofenac Sodium Gel [Voltaren 1% 2 gm TOPICAL QID PRN 08/03/22 09/04/22 Gel] Cephalexin [Keflex] 250 mg PO DIRECTED 09/04/22 09/04/22 Previous Rx's Medication Instructions Recorded Aspirin 81 mg PO DAILY #0 07/02/18 Hydrocortisone [Cortef] 5 mg PO HS #0 05/30/22 Hydrocortisone [Cortef] 10 mg PO DAILY@1200 #0 05/30/22 Hydrocortisone [Cortef] 15 mg PO DAILY #0 05/30/22 Ondansetron Odt [Zofran ODT] 8 mg PO Q8HR PRN #15 tab 07/04/22 Metoprolol Succinate (ER) [Toprol 50 mg PO HS #30 tab 08/29/22 XL] Promethazine [Phenergan] 25 mg PO BID PRN #30 tab 08/29/22 Ciprofloxacin HCl [Cipro] 500 mg PO BID 4 Days #7 tab 08/30/22 Prochlorperazine [Compazine] 10 mg PO Q6HR PRN #20 tab 09/05/22 Butalb/APAP/Caff 50-325-40Mg 1 tab PO Q6H PRN #12 tab 09/06/22 [Fioricet 50-325-40] Gabapentin [Neurontin] 100 mg PO TID #9 cap 09/06/22 HYDROcodone/APAP 10-325MG [[place] 1 tab PO Q4H PRN #12 tab 09/06/22 10-325] Nirmatrelvir/Ritonavir [Paxlovid 1 each PO ONCE #1 pack 01/30/23 2X150 mg-100 mg (Eua)] Nitrofurantoin Monohyd/M-Cryst 100 mg PO Q12HR #6 cap 04/14/23 [Macrobid] Ciprofloxacin HCl [Cipro] 500 mg PO BID 7 Days #14 tab 04/24/23 Ondansetron Odt [Zofran Odt] 4 mg PO Q8HR PRN #15 tab 04/24/23 Allergies Allergy/AdvReac Type Severity Reaction Status Date / Time butorphanol tartrate Allergy BLISTERS Verified 04/25/23 18:21 [From Stadol] IN MOUTH ceftriaxone [From Rocephin] Allergy Unknown Verified 04/25/23 18:21 clarithromycin [From Biaxin] Allergy Rash/Hives Verified 04/25/23 18:21 clindamycin Allergy Unknown Verified 04/25/23 18:21 codeine Allergy Rash/Hives Verified 04/25/23 18:21 ergotamine tartrate Allergy Unknown Verified 04/25/23 18:21 [From Cafergot] erythromycin base Allergy RASH, GI Verified 04/25/23 18:21 [From E-Mycin] SYMPTOMS ketorolac tromethamine Allergy Rash/Hives Verified 04/25/23 18:21 [From Toradol] liraglutide [From Victoza] Allergy Rash/Hives Verified 04/25/23 18:21 metoclopramide [From Reglan] Allergy Hallucinati Verified 04/25/23 18:21 ons morphine Allergy Rash/Hives Verified 04/25/23 18:21 Penicillins Allergy Rash/Hives Verified 04/25/23 18:21 on upper body pentazocine lactate Allergy SEVERE Verified 04/25/23 18:21 [From Talwin] BLISTERS IN MOUTH pregabalin [From Lyrica] Allergy Rash/Hives Verified 04/25/23 18:21 propoxyphene HCl Allergy Rash/Hives Verified 04/25/23 18:21 [From Darvon] Sulfa (Sulfonamide Allergy Rash/Hives Verified 04/25/23 18:21 Antibiotics) tramadol Allergy Unknown Verified 04/25/23 18:21 vancomycin Allergy Swelling Verified 04/25/23 18:21 monosodium glutamate [MSG] AdvReac Nausea & Verified 04/25/23 18:21 Vomiting nalbuphine HCl [From Nubain] AdvReac Nausea & Verified 04/25/23 18:21 Vomiting Review of Systems ROS Statement: Those systems with pertinent positive or pertinent negative responses have been documented in the HPI. ROS Other: All systems not noted in ROS Statement are negative. Past Medical History Past Medical History: Diabetes Mellitus, Deep Vein Thrombosis (DVT), Fibromyalgia, Hyperlipidemia, Hypertension, Osteoarthritis (OA), Pneumonia, Renal Disease, Sleep Apnea/CPAP/BIPAP, Vascular Disorder Additional Past Medical History / Comment(s): Pt recently admitted to [facility] with R flank pain. 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, DVT R calf in 1976, cardiac murmur, occipital neuraligia, balance issues-has narrowing of vessels "in the back of my head", vertigo, varicosities, states rt shoulder torn rotator cuff History of Any Multi-Drug Resistant Organisms: ESBL, MRSA, VRE Date of last positivie culture/infection: 11/25/20 ESBL;12/06/19 VRE; 03/10/11 MRSA MDRO Source:: Urine ESBL; Urine-VRE: MRSA 4th Right TOE Past Surgical History: Appendectomy, Back Surgery, Bladder Surgery, Breast Surgery, Cholecystectomy, Heart Catheterization, Hysterectomy, Orthopedic Surgery, Tonsillectomy Additional Past Surgical History / Comment(s): Lumbar fusions, bladder suspension, occipital nerve blocks, 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, R wrist/elbow nerve repair, bone removed R shoulder, 4th toe R foot partial amputation, bilateral feet/bunionectomies, R knee arthroscopies, R orbit decompression with ethmoidectomy and eyelid lift, EGD, colonoscopies, cystocopies, lithotripsy/stents, bilateral breast reduction, bilateral cataract removals, parathyroid surgery - April 2019, pain clinic procedures Past Anesthesia/Blood Transfusion Reactions: No Reported Reaction Additional Past Anesthesia/Blood Transfusion Reaction / Comment(s): never recieved blood Past Psychological History: Depression Smoking Status: Never smoker Past Alcohol Use History: Occasional Past Drug Use History: None Reported - Past Family History Father Family Medical History: Coronary Artery Disease (CAD), CVA/TIA, Diabetes Mellitus, Myocardial Infarction (IL), Pneumonia Additional Family Medical History / Comment(s): Father at the age of 78yrs from [place] and pneumonia. Mother Family Medical History: Cancer, Congestive Heart Failure (CHF) Additional Family Medical History / Comment(s): Mother had uterine cancer. She recently at the age of 96yrs old from shingles. General Exam - General Exam Comments Initial Comments: GENERAL: Patient is well-developed and well-nourished. Patient is nontoxic and well- hydrated and is in no acute distress. ENT: Neck is soft and supple. No significant lymphadenopathy is noted. Oropharynx is clear. Moist mucous membranes. Neck has full range of motion without eliciting any pain. EYES: The sclera were anicteric and conjunctiva were pink and moist. Extraocular movements were intact and pupils were equal round and reactive to light. Eyelids were unremarkable. PULMONARY: Unlabored respirations. Good breath sounds bilaterally. No audible rales rhonchi or wheezing was noted. CARDIOVASCULAR: There is a regular rate and rhythm without any murmurs gallops or rubs. ABDOMEN: Soft and nontender with normal bowel sounds. SKIN: Skin is clear with no lesions or rashes and otherwise unremarkable. NEUROLOGIC: Patient is alert and oriented x3. Cranial nerves II through XII are grossly intact. Motor and sensory are also intact. Normal speech, volume and content. Symmetrical smile. MUSCULOSKELETAL: Normal extremities with adequate strength and full range of motion. LYMPHATICS: No significant lymphadenopathy is noted PSYCHIATRIC: Normal psychiatric evaluation. Limitations: no limitations Course Vital Signs 04/25/23 18:18 Temperature 97.8 F Pulse Rate 84 Respiratory 20 Rate Blood Pressure 168/94 O2 Sat by Pulse 96 Oximetry Medical Decision Making - Medical Decision Making EKG was interpreted by myself. EKG shows a sinus rhythm with occasional PAC at 77 bpm MN interval 234 QRS is 90 QT interval is 490 QTC is 441. Patient's EKG shows no ST segment elevation or depression. Was pt. sent in by a medical professional or institution (, PA, ASPHALT MIXING MACHINE OPERATOR, urgent care, hospital, or [facility]...) When possible be specific @ -No Did you speak to anyone other than the patient for history (EMS, parent, family, police, friend...)? What history was obtained from this source @ - department with a history Did you review nursing and triage notes (agree or disagree)? Why? @ -I reviewed and agree with nursing and triage notes Were old charts reviewed (outside hosp., previous admission, EMS record, old EKG, old radiological studies, urgent care reports/EKG's, [facility] records)? Report findings @ -I reviewed prior charts part and lab work and prior radiological studies Differential Diagnosis (chest pain, altered mental status, abdominal pain women, abdominal pain men, vaginal bleeding, weakness, fever, dyspnea, syncope, h eadache, dizziness, GI bleed, back pain, seizure, CVA, palpatations, mental health, musculoskeletal)? @ -Differential Chest Pain: Stable Angina, Unstable Angina, STEMI, NSTEMI Aortic Dissection, Pneumothorax, Musculoskeletal, Esophageal Spasm GERD, Cholecystitis, Pancreatitis, Zoster, this is not meant to be an all-inclusive list. EKG interpreted by me (3pts min.). @ -As above X-rays interpreted by me (1pt min.). @ -Chest x-ray shows no acute abnormality CT interpreted by me (1pt min.). @ -None done U/S interpreted by me (1pt. min.). @ -None done What testing was considered but not performed or refused? (CT, X-rays, U/S, labs)? Why? @ -None What meds were considered but not given or refused? Why? @ -None Did you discuss the management of the patient with other professionals (professionals i.e. , PA, ASPHALT MIXING MACHINE OPERATOR, lab, RT, psych nurse, social sciences lecturer, statistical technician, teacher, medical corps officer, high risk case manager)? Give summary @ -I spoke with Dr. Fletcher he was warned to keep the patient. Was smoking cessation discussed for >3mins.? @ -No Was critical care preformed (if so, how long)? @ -No Were there social determinants of health that impacted care today? How? (Homelessness, low income, unemployed, alcoholism, drug addiction, transportation, low edu. Level, literacy, decrease access to med. care, penitentiary, rehab)? @ -No Was there de-escalation of care discussed even if they declined (Discuss DNR or withdrawal of care, Hospice)? DNR status @ -No What co-morbidities impacted this encounter? (DM, HTN, Smoking, COPD, CAD, Cancer, CVA, ARF, Chemo, Hep., AIDS, mental health diagnosis, sleep apnea, morbid obesity)? @ -None Was patient admitted / discharged? Hospital course, mention meds given and route, prescriptions, significant lab abnormalities, going to OR and other pertinent info. @ -Patient's lab work came back negative. For any acute problems I however suggested the patient stay because of her chest pain. Patient did not want to stay did not want to keep her because it would have to pay for the 23 hour admission. I discussed at length with him the potential dangers. And patient decided to leave and follow-up with Dr. De Guzman an outpatient Undiagnosed new problem with uncertain prognosis? @ -No Drug Therapy requiring intensive monitoring for toxicity (Heparin, Nitro, Insulin, Cardizem)? @ -No Were any procedures done? @ -No no Diagnosis/symptom? @ -Chest pain Acute, or Chronic, or Acute on Chronic? @ -acute Uncomplicated (without systemic symptoms) or Complicated (systemic symptoms)? @ -Complicated Side effects of treatment? @ -No Exacerbation, Progression, or Severe Exacerbation? @ -No Poses a threat to life or bodily function? How? (Chest pain, [place], [place], pneumonia, PE, COPD, DKA, ARF, appy, cholecystitis, CVA, Diverticulitis, Homicidal, Suicidal, threat to staff... and all critical care pts) @ -Yes this could lead to an IL and end organ dysfunction - Lab Data Result diagrams: 04/25/23 18:27 04/25/23 18:27 Lab Results 04/25/23 04/25/23 04/25/23 Range/Units 18:27 18:27 18:27 WBC 7.4 (3.8-10.6) k/uL RBC 3.71 L (3.80-5.40) m/uL Hgb 11.0 L (11.4-16.0) gm/dL Hct 32.6 L (34.0-46.0) % MCV 87.9 (80.0-100.0) fL MCH 29.6 (25.0-35.0) pg MCHC 33.7 (31.0-37.0) g/dL RDW 15.3 (11.5-15.5) % Plt Count 174 (150-450) k/uL MPV 8.2 Neutrophils % 72 % Lymphocytes % 16 % Monocytes % 7 % Eosinophils % 4 % Basophils % 0 % Neutrophils # 5.3 (1.3-7.7) k/uL Lymphocytes # 1.1 (1.0-4.8) k/uL Monocytes # 0.5 (0-1.0) k/uL Eosinophils # 0.3 (0-0.7) k/uL Basophils # 0.0 (0-0.2) k/uL PT 10.4 (10.0-12.5) sec INR 0.9 (<1.2) APTT 21.9 L (22.0-30.0) sec Sodium 136 L (137-145) mmol/L Potassium 3.9 (3.5-5.1) mmol/L Chloride 104 (98-107) mmol/L Carbon Dioxide 22 (22-30) mmol/L Anion Gap 10 mmol/L BUN 10 (7-17) mg/dL Creatinine 0.78 (0.52-1.04) mg/dL Est GFR (CKD-EPI)AfAm 88 (>60 ml/min/1.73 sqM) Est GFR (CKD-EPI)NonAf 76 (>60 ml/min/1.73 sqM) Glucose 122 H (74-99) mg/dL Calcium 8.5 (8.4-10.2) mg/dL Magnesium 1.6 (1.6-2.3) mg/dL Total Bilirubin 0.6 (0.2-1.3) mg/dL AST 24 (14-36) U/L ALT 17 (4-34) U/L Alkaline Phosphatase 101 (38-126) U/L Troponin I (0.000-0.034) ng/mL Total Protein 5.3 L (6.3-8.2) g/dL Albumin 3.3 L (3.5-5.0) g/dL 04/25/23 Range/Units 18:27 WBC (3.8-10.6) k/uL RBC (3.80-5.40) m/uL Hgb (11.4-16.0) gm/dL Hct (34.0-46.0) % MCV (80.0-100.0) fL MCH (25.0-35.0) pg MCHC (31.0-37.0) g/dL RDW (11.5-15.5) % Plt Count (150-450) k/uL MPV Neutrophils % % Lymphocytes % % Monocytes % % Eosinophils % % Basophils % % Neutrophils # (1.3-7.7) k/uL Lymphocytes # (1.0-4.8) k/uL Monocytes # (0-1.0) k/uL Eosinophils # (0-0.7) k/uL Basophils # (0-0.2) k/uL PT (10.0-12.5) sec INR (<1.2) APTT (22.0-30.0) sec Sodium (137-145) mmol/L Potassium (3.5-5.1) mmol/L Chloride (98-107) mmol/L Carbon Dioxide (22-30) mmol/L Anion Gap mmol/L BUN (7-17) mg/dL Creatinine (0.52-1.04) mg/dL Est GFR (CKD-EPI)AfAm (>60 ml/min/1.73 sqM) Est GFR (CKD-EPI)NonAf (>60 ml/min/1.73 sqM) Glucose (74-99) mg/dL Calcium (8.4-10.2) mg/dL Magnesium (1.6-2.3) mg/dL Total Bilirubin (0.2-1.3) mg/dL AST (14-36) U/L ALT (4-34) U/L Alkaline Phosphatase (38-126) U/L Troponin I 0.019 (0.000-0.034) ng/mL Total Protein (6.3-8.2) g/dL Albumin (3.5-5.0) g/dL Disposition Clinical Impression: Chest pain Disposition: ADMITTED IP TO THIS [facility] Instructions (If sedation given, give patient instructions): Chest Pain (ED) Is patient prescribed a controlled substance at d/c from ED?: No Referrals: Andrew Gonsales MD [Primary Care Provider] - 1-2 days Time of Disposition: 20:08
[2023-04-25 18:38] LABS: Basophils % (A) 0 %; Eosinophils # (A) 0.3 k/uL (0-0.7); Eosinophils % (A) 4 %; HCT 32.6 % (34.0-46.0); Lymphocytes # (A) 1.1 k/uL (1.0-4.8); Lymphocytes % (A) 16 %; MCH 29.6 pg (25.0-35.0); MCHC 33.7 g/dL (31.0-37.0); MCV 87.9 fL (80.0-100.0); Mean Platelet Volume 8.2; Monocytes # (A) 0.5 k/uL (0-1.0); Monocytes % (A) 7 %; Neutrophils # (A) 5.3 k/uL (1.3-7.7); Neutrophils % (A) 72 %; Platelet Count 174 k/uL (150-450); RBC 3.71 m/uL (3.80-5.40); RDW 15.3 % (11.5-15.5); WBC 7.4 k/uL (3.8-10.6)
[2023-04-25 18:50] LABS: ALT 17 U/L (4-34); AST 24 U/L (14-36); African American GFR (CKD) 88 (>60 ml/min/1.73 sqM); Albumin 3.3 g/dL (3.5-5.0); Alkaline Phosphatase 101 U/L (38-126); Anion Gap 10 mmol/L; Blood Urea Nitrogen 10 mg/dL (7-17); Calcium 8.5 mg/dL (8.4-10.2); Carbon Dioxide 22 mmol/L (22-30); Chloride 104 mmol/L (98-107); Glucose 122 mg/dL (74-99); Magnesium 1.6 mg/dL (1.6-2.3); Non-African American GFR(CKD) 76 (>60 ml/min/1.73 sqM); Potassium 3.9 mmol/L (3.5-5.1); Sodium 136 mmol/L (137-145); Total Bilirubin 0.6 mg/dL (0.2-1.3); Total Protein 5.3 g/dL (6.3-8.2)
[2023-04-25 18:53] LABS: INR 0.9 (<1.2); Prothrombin Time 10.4 sec (10.0-12.5)
--- NOTE | 2023-04-25 19:11 | XR ---
EXAMINATION TYPE: XR chest 2V DATE OF EXAM: 04/25/2023 7:06 PM CLINICAL INDICATION:Female, 72 years old with history of Chest Pain; [facility] COMPARISON: Chest radiographs from 01/29/2023 TECHNIQUE: XR chest 2V Frontal and lateral views of the chest. FINDINGS: Lungs/Pleura: There is no evidence of pleural effusion, focal consolidation, or pneumothorax. Pulmonary vascularity: Pulmonary vascular congestion. Heart/mediastinum: Cardiomediastinal silhouette is enlarged and stable. Musculoskeletal: No acute osseous pathology. There is fixation hardware in the lower cervical spine. IMPRESSION: Low lung volumes with a generalized hazy appearance which could represent atelectasis versus pulmonar y edema correlate with serum BNP.
[2023-04-25 19:21] LABS: Partial Thromboplastin Time 21.9 sec (22.0-30.0)
[2023-04-25 20:38] VITALS: BP 182/92; PULSE 94; RESP 16
== END 2023-04-25 20:34 | disposition other institution (70) ==
LOC: SUPCPDRO 18:06 → EC 18:06
DX: R07.9 Chest pain, unspecified (principal); E11.9 Type 2 diabetes mellitus without complications; E78.5 Hyperlipidemia, unspecified; I10 Essential (primary) hypertension; M19.90 Unspecified osteoarthritis, unspecified site; Z86.718 Personal history of other venous thrombosis and embolism; F32.A Depression, unspecified; Z88.0 Allergy status to penicillin; Z88.5 Allergy status to narcotic agent; Z88.8 Allergy status to other drugs, medicaments and biological substances; Z88.2 Allergy status to sulfonamides; Z88.1 Allergy status to other antibiotic agents; Z79.4 Long term (current) use of insulin; Z79.899 Other long term (current) drug therapy
CPT/HCPCS: 36415; 93005; 80053; 83735; 84484; 85025; 85610; 85730; 71046; 99285; 96374; 96375; J1720

== ENCOUNTER 2023-04-26 20:18 | Emergency (ER) | payer MEDICARE, BC ==
[2023-04-26 21:43] VITALS: BP 117/73; RESP 18; TEMP 98.3
--- NOTE | 2023-04-26 21:43 | ED ---
General Adult HPI - General Source: patient, RN notes reviewed Mode of arrival: ambulatory Limitations: no limitations <Amber Guo - Last Filed: 04/26/23 21:41> - History of Present Illness -: days(s) Location: abdomen Radiation: non-radiation Severity scale (1-10): 3 Quality: aching Consistency: intermittent Improves with: none Worsens with: none Associated Symptoms: nausea/vomiting, other (Right ear pain) Treatments Prior to Arrival: none <David Lawrence - Last Filed: 04/27/23 22:18> - General Chief complaint: Nausea/Vomiting/Diarrhea Stated complaint: Nausea,Mental Health Time Seen by Provider: 04/26/23 21:42 - History of Present Illness Initial comments: 72-year-old female presents emergency department chief complaint of ear pain. She states that this started today. She has been evaluated in the ED multiple times over the past 3 days for different complaints. Patient recently diagnosed with UTI and is on antibiotics. She also reports increased anxiety and restlessness. (Amber Guo) This is a 72-year-old female to the emergency room today today. Patient presents today for evaluation regards to weakness nausea and vomiting pain not feeling well and inability to sleep the last 2 days. Patient does have current urinary tract infection is taking antibiotics. Patient has no new complaints (David Lawrence) - Related Data Home Medications Medication Instructions Recorded Confirmed Meclizine [Antivert] 25 mg PO BID PRN 11/26/17 04/27/23 Ferrous Sulfate [Iron (65 MG 325 mg PO HS 10/08/18 04/27/23 Elemental)] L.acidoph,Paracasei, B.lactis 2 cap PO DAILY 10/08/18 04/27/23 [Probiotic] Melatonin 5 mg PO HS PRN 10/08/18 04/27/23 Potassium 99 mg PO HS 10/08/18 04/27/23 Thiamine [Vitamin B-1] 100 mg PO HS 10/08/18 04/27/23 Vitamin B-Complex Drops 1 drop PO BID 10/08/18 04/27/23 C,E,Zinc,Copper 11/Fekuq9b/Lut 1 cap PO HS 06/25/20 04/27/23 [Ocuvite Adult 50 Plus Softgel] Spironolactone 50 mg PO DAILY 06/25/20 04/27/23 Brimonidine Tartrate [Alphagan P 1 drop RIGHT EYE BID 11/26/20 04/27/23 0.2% Ophth Soln] Glucagon [Gvoke Pfs 1-Pack Syringe] 1 mg SQ ONCE PRN 11/26/20 04/27/23 Pantoprazole Sodium [Protonix] 40 mg PO HS 11/26/20 04/27/23 busPIRone HCl [Buspar] 5 mg PO BID 02/04/21 04/27/23 Insulin Aspart (For Pump) [NovoLOG 0.01 unit SQ-PUMP CONTINUOUS 03/03/21 04/27/23 (For Pump)] Rosuvastatin Calcium [Crestor] 5 mg PO HS 08/15/21 04/27/23 Cranberry Fruit Extract [Cranberry] 500 mg PO BID 05/25/22 04/27/23 Dorzolamide 2% [Trusopt 2%] 1 drop RIGHT EYE BID 05/25/22 04/27/23 Magnesium Oxide [Magnesium] 500 mg PO HS 05/25/22 04/27/23 Multivit-Min/Folic Acid/Uon362 1 tab PO DAILY 05/25/22 04/27/23 [Alive Premium Adult Multivit] buPROPion HCL [Wellbutrin SR] 200 mg PO DAILY 05/25/22 04/27/23 hydroCHLOROthiazide [Hydrodiuril] 25 mg PO DAILY 05/25/22 04/27/23 lisinopriL [Zestril] 30 mg PO DAILY 07/17/22 04/27/23 Cephalexin [Keflex] 250 mg PO HS 09/04/22 04/27/23 Dhea 50mg With B-12 2500mcg 1 tab PO HS 04/27/23 04/27/23 Folic Acid 800mcg With Folate 1 tab PO HS 04/27/23 04/27/23 1333mg Gabapentin [Neurontin] 300 mg PO BID 04/27/23 04/27/23 HYDROcodone/APAP 10-325MG [[place] 1 tab PO Q6H PRN 04/27/23 04/27/23 10-325] Hydrocortisone [Cortef] 15 mg PO BID-W/MEALS 04/27/23 04/27/23 Insulin Aspart [NovoLOG Flexpen] See Protocol SQ ACHS PRN 04/27/23 04/27/23 Metoprolol Succinate (ER) [Toprol 100 mg PO HS 04/27/23 04/27/23 Xl] Ondansetron [Zofran] 4 mg PO TID PRN 04/27/23 04/27/23 Turmeric Root Extract [Turmeric] 500 mg PO HS 04/27/23 04/27/23 Previous Rx's Medication Instructions Recorded Aspirin 81 mg PO DAILY #0 07/02/18 Hydrocortisone [Cortef] 5 mg PO HS #0 05/30/22 Promethazine [Phenergan] 25 mg PO BID PRN #30 tab 08/29/22 Prochlorperazine [Compazine] 10 mg PO Q6HR PRN #20 tab 09/05/22 Butalb/APAP/Caff 50-325-40Mg 1 tab PO Q6H PRN #12 tab 09/06/22 [Fioricet 50-325-40] Ondansetron Odt [Zofran Odt] 4 mg PO Q8HR PRN #15 tab 04/24/23 Allergies Allergy/AdvReac Type Severity Reaction Status Date / Time butorphanol tartrate Allergy BLISTERS Verified 04/27/23 16:01 [From Stadol] IN MOUTH ceftriaxone [From Rocephin] Allergy Unknown Verified 04/27/23 16:01 clarithromycin [From Biaxin] Allergy Rash/Hives Verified 04/27/23 16:01 clindamycin Allergy Unknown Verified 04/27/23 16:01 codeine Allergy Rash/Hives Verified 04/27/23 16:01 ergotamine tartrate Allergy Unknown Verified 04/27/23 16:01 [From Cafergot] erythromycin base Allergy RASH, GI Verified 04/27/23 16:01 [From E-Mycin] SYMPTOMS ketorolac tromethamine Allergy Rash/Hives Verified 04/27/23 16:01 [From Toradol] liraglutide [From Victoza] Allergy Rash/Hives Verified 04/27/23 16:01 metoclopramide [From Reglan] Allergy Hallucinati Verified 04/27/23 16:01 ons morphine Allergy Rash/Hives Verified 04/27/23 16:01 Penicillins Allergy Rash/Hives Verified 04/27/23 16:01 on upper body pentazocine lactate Allergy SEVERE Verified 04/27/23 16:01 [From Talwin] BLISTERS IN MOUTH pregabalin [From Lyrica] Allergy Rash/Hives Verified 04/27/23 16:01 propoxyphene HCl Allergy Rash/Hives Verified 04/27/23 16:01 [From Darvon] Sulfa (Sulfonamide Allergy Rash/Hives Verified 04/27/23 16:01 Antibiotics) tizanidine Allergy Unknown Verified 04/27/23 16:01 tramadol Allergy Unknown Verified 04/27/23 16:01 vancomycin Allergy Swelling Verified 04/27/23 16:01 monosodium glutamate [MSG] AdvReac Nausea & Verified 04/27/23 16:01 Vomiting nalbuphine HCl [From Nubain] AdvReac Nausea & Verified 04/27/23 16:01 Vomiting Review of Systems ROS Other: All systems not noted in ROS Statement are negative. <Amber Guo - Last Filed: 04/26/23 21:41> ROS Other: All systems not noted in ROS Statement are negative. <David Lawrence - Last Filed: 04/27/23 22:18> ROS Statement: Those systems with pertinent positive or pertinent negative responses have been documented in the HPI. Past Medical History Past Medical History: Diabetes Mellitus, Deep Vein Thrombosis (DVT), Fibromyalgia, Hyperlipidemia, Hypertension, Osteoarthritis (OA), Pneumonia, Renal Disease, Sleep Apnea/CPAP/BIPAP, Vascular Disorder Additional Past Medical History / Comment(s): Pt recently admitted to [facility] with R flank pain. 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, DVT R calf in 1976, cardiac murmur, occipital neuraligia, balance issues-has narrowing of vessels "in the back of my head", vertigo, varicosities, states rt shoulder torn rotator cuff History of Any Multi-Drug Resistant Organisms: ESBL, MRSA, VRE Date of last positivie culture/infection: 11/25/20 ESBL;12/06/19 VRE; 03/10/11 MRSA MDRO Source:: Urine ESBL; Urine-VRE: MRSA 4th Right TOE Past Surgical History: Appendectomy, Back Surgery, Bladder Surgery, Breast Surgery, Cholecystectomy, Heart Catheterization, Hysterectomy, Orthopedic Surgery, Tonsillectomy Additional Past Surgical History / Comment(s): Lumbar fusions, bladder suspension, occipital nerve blocks, 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, R wrist/elbow nerve repair, bone removed R shoulder, 4th toe R foot partial amputation, bilateral feet/bunionectomies, R knee arthroscopies, R orbit d ecompression with ethmoidectomy and eyelid lift, EGD, colonoscopies, cystocopies, lithotripsy/stents, bilateral breast reduction, bilateral cataract removals, parathyroid surgery - April 2019, pain clinic procedures Past Anesthesia/Blood Transfusion Reactions: No Reported Reaction Additional Past Anesthesia/Blood Transfusion Reaction / Comment(s): never recieved blood Past Psychological History: Depression Smoking Status: Never smoker Past Alcohol Use History: Occasional Past Drug Use History: None Reported - Past Family History Father Family Medical History: Coronary Artery Disease (CAD), CVA/TIA, Diabetes Mellitus, Myocardial Infarction (NC), Pneumonia Additional Family Medical History / Comment(s): Father at the age of 78yrs from NC and pneumonia. Mother Family Medical History: Cancer, Congestive Heart Failure (CHF) Additional Family Medical History / Comment(s): Mother had uterine cancer. She recently at the age of 96yrs old from shingles. <Amber Guo - Last Filed: 04/26/23 21:41> General Exam Limitations: no limitations <Amber Guo - Last Filed: 04/26/23 21:41> General appearance: alert, in no apparent distress, anxious Head exam: Present: atraumatic, normocephalic, normal inspection Eye exam: Present: normal appearance, PERRL, EOMI. Absent: scleral icterus, conjunctival injection, periorbital swelling ENT exam: Present: normal exam, mucous membranes moist Neck exam: Present: normal inspection. Absent: tenderness, meningismus, lymphadenopathy Respiratory exam: Present: normal lung sounds bilaterally. Absent: respiratory distress, wheezes, rales, rhonchi, stridor Cardiovascular Exam: Present: normal rhythm, tachycardia, normal heart sounds. Absent: systolic murmur, diastolic murmur, rubs, gallop, clicks GI/Abdominal exam: Present: soft, normal bowel sounds. Absent: distended, tenderness, guarding, rebound, rigid Extremities exam: Present: normal inspection, full ROM, normal capillary refill. Absent: tenderness, pedal edema, joint swelling, calf tenderness Back exam: Present: normal inspection Neurological exam: Present: alert, oriented X3, CN II-XII intact Psychiatric exam: Present: normal affect, normal mood Skin exam: Present: warm, dry, intact, normal color. Absent: rash <David Lawrence - Last Filed: 04/27/23 22:18> - General Exam Comments Initial Comments: Visual Physical Exam Vital signs reviewed General: Well-appearing, nontoxic, no acute distress. Head: Normocephalic, atraumatic Eyes: PERRLA, EOMI ENT: Airway patent Chest: Nonlabored breathing Skin: No visual rash, normal skin tone Neuro: Alert and oriented 3 Musculoskeletal: No gross abnormalities (Amber Guo) Course <David Lawrence - Last Filed: 04/27/23 22:18> Vital Signs 04/26/23 04/27/23 21:36 01:18 Temperature 98.3 F Pulse Rate 121 H 105 H Respiratory 18 Rate Blood Pressure 117/73 O2 Sat by Pulse 96 Oximetry - Reevaluation(s) Reevaluation #1: 04/27/23 01:22 Medical records reviewed (David Lawrence) Reevaluation #2: 04/27/23 01:22 Patient symptoms are improving (David Lawrence) Reevaluation #3: 04/27/23 01:22 Patient informed of results questions answered (David Lawrence) Reevaluation #4: 04/27/23 01:22 Was pt. sent in by a medical professional or institution (, PA, NITROGLYCERIN SEPARATOR OPERATOR, urgent care, hospital, or residential...) When possible be specific @ -no Did you speak to anyone other than the patient for history (EMS, parent, family, police, friend...)? What history was obtained from this source @ -no Did you review nursing and triage notes (agree or disagree)? Why? @ -agree Are old charts reviewed (outside hosp., previous admission, EMS record, old EKG, old radiological studies, urgent care reports/EKG's, residential records)? Report findings @ -yes Differential Diagnosis (chest pain, altered mental status, abdominal pain women, abdominal pain men, vaginal bleeding, weakness, fever, dyspnea, syncope, headache, dizziness, GI bleed, back pain, seizure, CVA, palpatations, mental health, musculoskeletal)? @ -prior EKG interpreted by me (3pts min.). @ -no X-rays interpreted by me (1pt min.). @ -no CT interpreted by me (1pt min.). @ -no U/S interpreted by me (1pt. min.). @ -no What testing was considered but not performed or refused? (CT, X-rays, U/S, labs)? Why? @ -none What meds were considered but not given or refused? Why? @ -none Did you discuss the management of the patient with other professionals (professionals i.e. , PA, NITROGLYCERIN SEPARATOR OPERATOR, lab, RT, psych nurse, social welfare clerk, coach cleaner, teacher, housing management officer, shoe parts caser)? Give summary @ -no Was smoking cessation discussed for >3mins.? @ -no Was critical care preformed (if so, how long)? @ -no Were there social determinants of health that impacted care today? How? (Homelessness, low income, unemployed, alcoholism, drug addiction, transportation, low edu. Level, literacy, decrease access to med. care, care home, rehab)? @ -none Was there de-escalation of care discussed even if they declined (Discuss DNR or withdrawal of care, Hospice)? DNR status @ -no What co-morbidities impacted this encounter? (DM, HTN, Smoking, COPD, CAD, Cancer, CVA, ARF, Chemo, Hep., AIDS, mental health diagnosis, sleep apnea, morbid obesity)? @ -none Was patient admitted / discharged? Hospital course, mention meds given and route, prescriptions, significant lab abnormalities, going to OR and other pertinent info. @ - 72 female to the emergency department for evaluation dizziness nausea vomiting. Patient does have right ear pain as well no acute findings on exam. Patient has no complaints now she continues to feel well and can be discharged home Discharge Undiagnosed new problem with uncertain prognosis? @ -no Drug Therapy requiring intensive monitoring for toxicity (Heparin, Nitro, Insu tamera, Cardizem)? @ -no Were any procedures done? @ -no Diagnosis/symptom? @ -Nausea vomiting dizziness Acute, or Chronic, or Acute on Chronic? @ -Acute Uncomplicated (without systemic symptoms) or Complicated (systemic symptoms)? @ -Complicated Side effects of treatment? @ -no Exacerbation, Progression, or Severe Exacerbation? @ -exacerbation Poses a threat to life or bodily function? How? (Chest pain, USA, NC, pneumonia, PE, COPD, DKA, ARF, appy, cholecystitis, CVA, Diverticulitis, Homicidal, Suicidal, threat to staff... and all critical care pts) @ -no (David Lawrence) Reevaluation #5: 04/27/23 01:22 Differential Dizziness: Benign paroxysmal positional Vertigo, Menieres disease, otitis media, acoustic neuroma, vertebrobasilar insufficiency, cerebellar stroke, encephalitis, hypovolemic, arrhythmia, coronary artery syndrome, anemia, this is not meant to be an all-inclusive list (David Lawrence) Medical Decision Making <Amber Guo - Last Filed: 04/26/23 21:41> <David Lawrence - Last Filed: 04/27/23 22:18> - Medical Decision Making I preformed the quick note portion of this chart. Electronically signed by Amber Guo PA-C. (Amber Guo) 72 female to the emergency department for evaluation dizziness nausea vomiting. Patient does have right ear pain as well no acute findings on exam. Patient has no complaints now she continues to feel well and can be discharged home (David Lawrence) Disposition <Amber Guo - Last Filed: 04/26/23 21:41> Is patient prescribed a controlled substance at d/c from ED?: No Time of Disposition: 01:20 <David Lawrence - Last Filed: 04/27/23 22:18> Clinical Impression: Nausea & vomiting, Weakness, Nausea, Migraine Disposition: HOME SELF-CARE Condition: Fair Instructions (If sedation given, give patient instructions): Acute Nausea and Vomiting (ED) Referrals: Andrew Gonsales MD [Primary Care Provider] - 1-2 days
[2023-04-27] MEDS ORDERED: HYDROmorphone 1 MG/ML 1 ML SYRINGE IM STA (00:56)
[2023-04-27] MEDS ORDERED: diphenhydrAMINE 25 MG CAP PO STA (00:56)
[2023-04-27] MEDS ORDERED: PROCHLORPERAZINE 10 MG TAB PO ONE (01:00)
[2023-04-27] MEDS ORDERED: diazePAM 5 MG TAB PO STA (01:20)
[2023-04-27 02:27] VITALS: PULSE 105
== END 2023-04-27 01:45 | disposition home or self-care (01) ==
LOC: EC 20:18
DX: G43.909 Migraine, unspecified, not intractable, without status migrainosus (principal); R11.2 Nausea with vomiting, unspecified; R53.1 Weakness; E11.9 Type 2 diabetes mellitus without complications; E78.5 Hyperlipidemia, unspecified; I10 Essential (primary) hypertension; G47.30 Sleep apnea, unspecified; F32.A Depression, unspecified; Z79.4 Long term (current) use of insulin; Z79.899 Other long term (current) drug therapy; Z88.0 Allergy status to penicillin; Z88.5 Allergy status to narcotic agent; Z88.6 Allergy status to analgesic agent; Z88.8 Allergy status to other drugs, medicaments and biological substances; Z88.2 Allergy status to sulfonamides
CPT/HCPCS: 99284; 96372; S0183; J1170

== ENCOUNTER 2023-04-27 09:24 | Observation (INO) | payer MEDICARE, BC ==
[2023-04-27] MEDS ORDERED: SODIUM CHLORIDE 0.9% 1,000 ML IV STA (12:55)
[2023-04-27] MEDS ORDERED: ONDANSETRON 4 MG/2 ML VIAL IVP STA (12:55)
--- NOTE | 2023-04-27 13:03 | ED ---
General Adult HPI - General Chief complaint: Recheck/Abnormal Lab/Rx Stated complaint: uti nausea Time Seen by Provider: 04/27/23 12:12 Source: patient, RN notes reviewed Mode of arrival: wheelchair Limitations: no limitations - History of Present Illness Initial comments: 72-year-old female with a history of multiple medical issues including type 2 diabetes history of DVT hypertension and renal disease peripheral neuropathy who states she's had nausea vomiting some diarrhea generalized weakness decreased oral intake ever since being diagnosed with a urinary tract infection this past week. She also complains some abdominal pain. No overt fevers or chills. She denies any dizziness or lightheadedness however she does states she feels dehydrated. No other current complaints she has been in the emergency department multiple times since this past week. - Related Data Home Medications Medication Instructions Recorded Confirmed Meclizine [Antivert] 25 mg PO BID PRN 11/26/17 04/27/23 Ferrous Sulfate [Iron (65 MG 325 mg PO HS 10/08/18 04/27/23 Elemental)] L.acidoph,Paracasei, B.lactis 2 cap PO DAILY 10/08/18 04/27/23 [Probiotic] Melatonin 5 mg PO HS PRN 10/08/18 04/27/23 Potassium 99 mg PO HS 10/08/18 04/27/23 Thiamine [Vitamin B-1] 100 mg PO HS 10/08/18 04/27/23 Vitamin B-Complex Drops 1 drop PO BID 10/08/18 04/27/23 C,E,Zinc,Copper 11/Gbhcd3t/Lut 1 cap PO HS 06/25/20 04/27/23 [Ocuvite Adult 50 Plus Softgel] Spironolactone 50 mg PO DAILY 06/25/20 04/27/23 Brimonidine Tartrate [Alphagan P 1 drop RIGHT EYE BID 11/26/20 04/27/23 0.2% Ophth Soln] Glucagon [Gvoke Pfs 1-Pack Syringe] 1 mg SQ ONCE PRN 11/26/20 04/27/23 Pantoprazole Sodium [Protonix] 40 mg PO HS 11/26/20 04/27/23 busPIRone HCl [Buspar] 5 mg PO BID 02/04/21 04/27/23 Insulin Aspart (For Pump) [NovoLOG 0.01 unit SQ-PUMP CONTINUOUS 03/03/21 04/27/23 (For Pump)] Rosuvastatin Calcium [Crestor] 5 mg PO HS 08/15/21 04/27/23 Cranberry Fruit Extract [Cranberry] 500 mg PO BID 05/25/22 04/27/23 Dorzolamide 2% [Trusopt 2%] 1 drop RIGHT EYE BID 05/25/22 04/27/23 Magnesium Oxide [Magnesium] 500 mg PO HS 05/25/22 04/27/23 Multivit-Min/Folic Acid/Tqa543 1 tab PO DAILY 05/25/22 04/27/23 [Alive Premium Adult Multivit] buPROPion HCL [Wellbutrin SR] 200 mg PO DAILY 05/25/22 04/27/23 hydroCHLOROthiazide [Hydrodiuril] 25 mg PO DAILY 05/25/22 04/27/23 lisinopriL [Zestril] 30 mg PO DAILY 07/17/22 04/27/23 Cephalexin [Keflex] 250 mg PO HS 09/04/22 04/27/23 Dhea 50mg With B-12 2500mcg 1 tab PO HS 04/27/23 04/27/23 Folic Acid 800mcg With Folate 1 tab PO HS 04/27/23 04/27/23 1333mg Gabapentin [Neurontin] 300 mg PO BID 04/27/23 04/27/23 HYDROcodone/APAP 10-325MG [[place] 1 tab PO Q6H PRN 04/27/23 04/27/23 10-325] Hydrocortisone [Cortef] 15 mg PO BID-W/MEALS 04/27/23 04/27/23 Insulin Aspart [NovoLOG Flexpen] See Protocol SQ ACHS PRN 04/27/23 04/27/23 Metoprolol Succinate (ER) [Toprol 100 mg PO HS 04/27/23 04/27/23 Xl] Ondansetron [Zofran] 4 mg PO TID PRN 04/27/23 04/27/23 Turmeric Root Extract [Turmeric] 500 mg PO HS 04/27/23 04/27/23 Previous Rx's Medication Instructions Recorded Aspirin 81 mg PO DAILY #0 07/02/18 Hydrocortisone [Cortef] 5 mg PO HS #0 05/30/22 Promethazine [Phenergan] 25 mg PO BID PRN #30 tab 03/13/23 Prochlorperazine [Compazine] 10 mg PO Q6HR PRN #20 tab 09/05/22 Butalb/APAP/Caff 50-325-40Mg 1 tab PO Q6H PRN #12 tab 09/06/22 [Fioricet 50-325-40] Ondansetron Odt [Zofran Odt] 4 mg PO Q8HR PRN #15 tab 04/24/23 Allergies Allergy/AdvReac Type Severity Reaction Status Date / Time butorphanol tartrate Allergy BLISTERS Verified 04/27/23 16:01 [From Stadol] IN MOUTH ceftriaxone [From Rocephin] Allergy Unknown Verified 04/27/23 16:01 clarithromycin [From Biaxin] Allergy Rash/Hives Verified 04/27/23 16:01 clindamycin Allergy Unknown Verified 04/27/23 16:01 codeine Allergy Rash/Hives Verified 04/27/23 16:01 ergotamine tartrate Allergy Unknown Verified 04/27/23 16:01 [From Cafergot] erythromycin base Allergy RASH, GI Verified 04/27/23 16:01 [From E-Mycin] SYMPTOMS ketorolac tromethamine Allergy Rash/Hives Verified 04/27/23 16:01 [From Toradol] liraglutide [From Victoza] Allergy Rash/Hives Verified 04/27/23 16:01 metoclopramide [From Reglan] Allergy Hallucinati Verified 04/27/23 16:01 ons morphine Allergy Rash/Hives Verified 04/27/23 16:01 Penicillins Allergy Rash/Hives Verified 04/27/23 16:01 on upper body pentazocine lactate Allergy SEVERE Verified 04/27/23 16:01 [From Talwin] BLISTERS IN MOUTH pregabalin [From Lyrica] Allergy Rash/Hives Verified 04/27/23 16:01 propoxyphene HCl Allergy Rash/Hives Verified 04/27/23 16:01 [From Darvon] Sulfa (Sulfonamide Allergy Rash/Hives Verified 04/27/23 16:01 Antibiotics) tizanidine Allergy Unknown Verified 04/27/23 16:01 tramadol Allergy Unknown Verified 04/27/23 16:01 vancomycin Allergy Swelling Verified 04/27/23 16:01 monosodium glutamate [MSG] AdvReac Nausea & Verified 04/27/23 16:01 Vomiting nalbuphine HCl [From Nubain] AdvReac Nausea & Verified 04/27/23 16:01 Vomiting Review of Systems ROS Statement: Those systems with pertinent positive or pertinent negative responses have been documented in the HPI. ROS Other: All systems not noted in ROS Statement are negative. Past Medical History Past Medical History: Diabetes Mellitus, Deep Vein Thrombosis (DVT), Fibromyalgia, Hyperlipidemia, Hypertension, Osteoarthritis (OA), Pneumonia, Renal Disease, Sleep Apnea/CPAP/BIPAP, Vascular Disorder Additional Past Medical History / Comment(s): Pt recently admitted to [facility] with R flank pain. 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, DVT R calf in 1976, cardiac murmur, occipital neuraligia, balance issues-has narrowing of vessels "in the back of my head", vertigo, varicosities, states rt shoulder torn rotator cuff History of Any Multi-Drug Resistant Organisms: ESBL, MRSA, VRE Date of last positivie culture/infection: 11/25/20 ESBL;12/06/19 VRE; 03/10/11 MRSA MDRO Source:: Urine ESBL; Urine-VRE: MRSA 4th Right TOE Past Surgical History: Appendectomy, Back Surgery, Bladder Surgery, Breast Surgery, Cholecystectomy, Heart Catheterization, Hysterectomy, Orthopedic Surgery, Tonsillectomy Additional Past Surgical History / Comment(s): Lumbar fusions, bladder suspension, occipital nerve blocks, 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, R wrist/elbow nerve repair, bone removed R shoulder, 4th toe R foot partial amputation, bilateral feet/bunionectomies, R knee arthroscopies, R orbit decompression with ethmoidectomy and eyelid lift, EGD, colonoscopies, cys tocopies, lithotripsy/stents, bilateral breast reduction, bilateral cataract removals, parathyroid surgery - April 2019, pain clinic procedures Past Anesthesia/Blood Transfusion Reactions: No Reported Reaction Additional Past Anesthesia/Blood Transfusion Reaction / Comment(s): never recieved blood Past Psychological History: Depression Smoking Status: Never smoker Past Alcohol Use History: Occasional Past Drug Use History: None Reported - Past Family History Father Family Medical History: Coronary Artery Disease (CAD), CVA/TIA, Diabetes Mellitus, Myocardial Infarction (AR), Pneumonia Additional Family Medical History / Comment(s): Father at the age of 78yrs from AR and pneumonia. Mother Family Medical History: Cancer, Congestive Heart Failure (CHF) Additional Family Medical History / Comment(s): Mother had uterine cancer. She recently at the age of 96yrs old from shingles. General Exam - General Exam Comments Initial Comments: This is a well-developed frail-appearing female who is awake alert oriented 4 Limitations: no limitations General appearance: alert, in no apparent distress Head exam: Present: atraumatic, normocephalic, normal inspection Eye exam: Present: PERRL, other (Patient does demonstrate exophthalmos) ENT exam: Present: mucous membranes dry Neck exam: Present: normal inspection, full ROM. Absent: tenderness, meningismus, lymphadenopathy Respiratory exam: Present: decreased breath sounds Cardiovascular Exam: Present: normal rhythm, tachycardia, normal heart sounds. Absent: systolic murmur, diastolic murmur, rubs, gallop, clicks GI/Abdominal exam: Present: soft, tenderness (Now suprapubic tenderness). Absent: guarding, rebound, bruit, pulsatile mass Rectal exam: Present: deferred Extremities exam: Present: normal inspection, full ROM, normal capillary refill. Absent: tenderness, pedal edema, joint swelling, calf tenderness Back exam: Present: normal inspection Neurological exam: Present: alert, oriented X3, CN II-XII intact Psychiatric exam: Present: normal affect, normal mood Skin exam: Present: warm, dry, intact, normal color. Absent: rash Course Vital Signs 04/27/23 04/27/23 04/27/23 09:33 17:00 18:00 Temperature 98.7 F Pulse Rate 125 H 114 H 107 H Respiratory 16 20 20 Rate Blood Pressure 105/72 128/77 123/70 O2 Sat by Pulse 98 96 95 Oximetry 04/27/23 19:00 Temperature Pulse Rate 114 H Respiratory 20 Rate Blood Pressure 130/72 O2 Sat by Pulse 100 Oximetry EKG Findings - EKG Results: EKG: interpreted by ERMD (G interpreted by me sinus tachycardia rate 129 OK interval 141 QRS duration 76 QT since QTC was 77/to [address]-T wave configuration) Medical Decision Making - Medical Decision Making I did discuss the findings with the patient and her . Patient will be admitted for IV hydration. Outpatient treatment failure and failure to thrive. I did discuss case with her attending physician Dr. Whittaker pt. sent in by a medical professional or institution (, [facility], [facility], urgent care, hospital, or correction...) When possible be specific @ -No Did you speak to anyone other than the patient for history (EMS, parent, family, police, friend...)? What history was obtained from this source @ - Did you review nursing and triage notes (agree or disagree)? Why? @ -I reviewed and agree with nursing and triage notes Were old charts reviewed (outside hosp., previous admission, EMS record, old EKG, old radiological studies, urgent care reports/EKG's, correction records)? Report findings @ -Recent ER visits old charts were reviewed Differential Diagnosis (chest pain, altered mental status, abdominal pain women, abdominal pain men, vaginal bleeding, weakness, fever, dyspnea, syncope, headache, dizziness, GI bleed, back pain, seizure, CVA, palpatations, mental health, musculoskeletal)? @ -GI, dehydration, outpatient treatment failure EKG interpreted by me (3pts min.). @ -As above EKG interpreted by me sinus tachycardia rate 129. Interval 141 QRS duration 76 QT since QTC 177/to [address]-T wave configuration X-rays interpreted by me (1pt min.). @ -Chest x-ray and KUB interpreted by me no evidence of acute processes] CT interpreted by me (1pt min.). @ -None done U/S interpreted by me (1pt. min.). @ -None done What testing was considered but not performed or refused? (CT, X-rays, U/S, labs)? Why? @ -None What meds were considered but not given or refused? Why? @ -None Did you discuss the management of the patient with other professionals (professionals i.e. [facility]PHANY Rodriguez, F[employer]ING [employer]ER, lab, RT, psych nurse, social services technician, position classifier, teacher, staff weapons officer, case liner)? Give summary @ -Dr. Gonsales Was smoking cessation discussed for >3mins.? @ -No Was critical care preformed (if so, how long)? @ -No Were there social determinants of health that impacted care today? How? (Shabana elessness, low income, unemployed, alcoholism, drug addiction, transportation, low edu. Level, literacy, decrease access to med. care, halfway, rehab)? @ -No Was there de-escalation of care discussed even if they declined (Discuss DNR or withdrawal of care, Hospice)? DNR status @ -No What co-morbidities impacted this encounter? (DM, HTN, Smoking, COPD, CAD, Cancer, CVA, ARF, Chemo, Hep., AIDS, mental health diagnosis, sleep apnea, morbid obesity)? @ -Hypertension, diabetes Was patient admitted / discharged? Hospital course, mention meds given and route, prescriptions, significant lab abnormalities, going to OR and other pertinent info. @ -hospital course he was admitted to this facility for IV hydration further evaluation Undiagnosed new problem with uncertain prognosis? @ -Dehydration Drug Therapy requiring intensive monitoring for toxicity (Heparin, Nitro, Insulin, Cardizem)? @ -No Were any procedures done? @ -No Diagnosis/symptom? @ -Dehydration, intractable nausea vomiting, failure to thrive Acute, or Chronic, or Acute on Chronic? @ -Every Uncomplicated (without systemic symptoms) or Complicated (systemic symptoms)? @ -default Side effects of treatment? @ -No Exacerbation, Progression, or Severe Exacerbation? @ -No Poses a threat to life or bodily function? How? (Chest pain, [place], AR, pneumonia, PE, COPD, DKA, ARF, appy, cholecystitis, CVA, Diverticulitis, Homicidal, Suicidal, threat to staff... and all critical care pts) @ -No - Lab Data Result diagrams: 04/27/23 16:28 04/27/23 13:32 Lab Results 04/27/23 04/27/23 04/27/23 Range/Units 13:32 13:32 13:32 WBC (3.8-10.6) k/uL RBC [employer] Hgb [employer] Hct [employer] MCV [employer] MCH [employer] MCHC [employer] RDW [employer] Plt Count (150-450) k/uL MPV [employer] Neutrophils % % Lymphocytes % % Monocytes % % Eosinophils % % Basophils % % Neutrophils # (1.3-7.7) k/uL Lymphocytes # (1.0-4.8) k/uL Monocytes # (0-1.0) k/uL Eosinophils # (0-0.7) k/uL Basophils # (0-0.2) k/uL Manual Slide Review Sodium 138 (137-145) mmol/L Potassium 4.6 (3.5-5.1) mmol/L Chloride 104 (98-107) mmol/L Carbon Dioxide 11 L (22-30) mmol/L Anion Gap 23 mmol/L BUN 14 (7-17) mg/dL Creatinine 1.07 H (0.52-1.04) mg/dL Est GFR (CKD-EPI)AfAm 60 (>60 ml/min/1.73 sqM) Est GFR (CKD-EPI)NonAf 52 (>60 ml/min/1.73 sqM) Glucose 173 H (74-99) mg/dL Plasma Lactic Acid Sudhir 1.2 (0.7-2.0) mmol/L Calcium 9.6 (8.4-10.2) mg/dL Magnesium 1.7 (1.6-2.3) mg/dL Total Bilirubin 0.7 (0.2-1.3) mg/dL AST 30 (14-36) U/L ALT 20 (4-34) U/L Alkaline Phosphatase 119 (38-126) U/L Creatine Kinase 176 H (30-135) U/L Total Protein 6.6 (6.3-8.2) g/dL Albumin 4.2 (3.5-5.0) g/dL Lipase 62 (23-300) U/L Urine Color Urine Appearance (Clear) Urine pH (5.0-8.0) Ur Specific Elaine (1.001-1.035) Urine Protein (Negative) Urine Glucose (UA) (Negative) Urine Ketones (Negative) Urine Blood (Negative) Urine Nitrite (Negative) Urine Bilirubin (Negative) Urine Urobilinogen (<2.0) mg/dL Ur Leukocyte Esterase (Negative) Urine RBC (0-5) /hpf Urine WBC (0-5) /hpf Hyaline Casts (0-2) /lpf Urine Mucus (None) /hpf 04/27/23 04/27/23 Range/Units 16:28 16:46 WBC 9.3 (3.8-10.6) k/uL RBC 4.51 Hgb 13.3 Hct 41.0 MCV 90.8 MCH 29.6 MCHC 32.5 RDW 15.6 H Plt Count 169 (150-450) k/uL MPV 9.7 Neutrophils % 70 % Lymphocytes % 17 % Monocytes % 7 % Eosinophils % 4 % Basophils % 0 % Neutrophils # 6.5 (1.3-7.7) k/uL Lymphocytes # 1.6 (1.0-4.8) k/uL Monocytes # 0.7 (0-1.0) k/uL Eosinophils # 0.4 (0-0.7) k/uL Basophils # 0.0 (0-0.2) k/uL Manual Slide Review Performed Sodium (137-145) mmol/L Potassium (3.5-5.1) mmol/L Chloride (98-107) mmol/L Carbon Dioxide (22-30) mmol/L Anion Gap mmol/L BUN (7-17) mg/dL Creatinine (0.52-1.04) mg/dL Est GFR (CKD-EPI)AfAm (>60 ml/min/1.73 sqM) Est GFR (CKD-EPI)NonAf (>60 ml/min/1.73 sqM) Glucose (74-99) mg/dL Plasma Lactic Acid Sudhir (0.7-2.0) mmol/L Calcium (8.4-10.2) mg/dL Magnesium (1.6-2.3) mg/dL Total Bilirubin (0.2-1.3) mg/dL AST (14-36) U/L ALT (4-34) U/L Alkaline Phosphatase (38-126) U/L Creatine Kinase (30-135) U/L Total Protein (6.3-8.2) g/dL Albumin (3.5-5.0) g/dL Lipase (23-300) U/L Urine Color Light Yellow Urine Appearance Clear (Clear) Urine pH 5.5 (5.0-8.0) Ur Specific Elaine 1.016 (1.001-1.035) Urine Protein 1+ H (Negative) Urine Glucose (UA) Negative (Negative) Urine Ketones 4+ H (Negative) Urine Blood Trace H (Negative) Urine Nitrite Negative (Negative) Urine Bilirubin 1+ H (Negative) Urine Urobilinogen 2.0 (<2.0) mg/dL Ur Leukocyte Esterase Negative (Negative) Urine RBC <1 (0-5) /hpf Urine WBC 1 (0-5) /hpf Hyaline Casts 7 H (0-2) /lpf Urine Mucus Rare H (None) /hpf - Radiology Data Interpreted by me: Imaging interpreted by me KUB and chest x-ray nonspecific and unremarkable. Disposition Clinical Impression: Dehydration, Nausea & vomiting, Failure to thrive in adult Disposition: ADMITTED IP TO THIS [facility] Condition: Fair Referrals: Andrew Gonsales MD [Primary Care Provider] - 1-2 days Decision Date: 04/27/23 Decision Time: 19:00
--- NOTE | 2023-04-27 13:24 | XR ---
EXAMINATION TYPE: XR KUB DATE OF EXAM: 04/27/2023 COMPARISON: 11/26/2020 INDICATION: Weakness TECHNIQUE: Abdomen is examined in the supine view and upright view FINDINGS: There is a normal bowel gas pattern. No free air is evident. No differential air-fluid levels are pre sent. Psoas margins are normal No organomegaly is present. IMPRESSION: 1. Unremarkable Abdomen
--- NOTE | 2023-04-27 13:24 | XR ---
EXAMINATION TYPE: XR chest 2V DATE OF EXAM: 04/27/2023 COMPARISON: 04/25/2023 INDICATION: Weakness TECHNIQUE: Frontal and lateral views of the chest are obtained. FINDINGS: The heart size is normal. The pulmonary vasculature is normal. The lungs are clear. IMPRESSION: 1. No acute pulmonary process.
[2023-04-27 14:35] LABS: ALT 20 U/L (4-34); AST 30 U/L (14-36); African American GFR (CKD) 60 (>60 ml/min/1.73 sqM); Albumin 4.2 g/dL (3.5-5.0); Alkaline Phosphatase 119 U/L (38-126); Anion Gap 23 mmol/L; Blood Urea Nitrogen 14 mg/dL (7-17); Calcium 9.6 mg/dL (8.4-10.2); Carbon Dioxide 11 mmol/L (22-30); Chloride 104 mmol/L (98-107); Creatine Kinase 176 U/L (30-135); Glucose 173 mg/dL (74-99); Lipase 62 U/L (23-300); Magnesium 1.7 mg/dL (1.6-2.3); Non-African American GFR(CKD) 52 (>60 ml/min/1.73 sqM); Potassium 4.6 mmol/L (3.5-5.1); Sodium 138 mmol/L (137-145); Total Bilirubin 0.7 mg/dL (0.2-1.3); Total Protein 6.6 g/dL (6.3-8.2)
[2023-04-27 16:56] LABS: Basophils % (A) 0 %; Eosinophils # (A) 0.4 k/uL (0-0.7); Eosinophils % (A) 4 %; HGB 13.3 gm/dL (11.4-16.0); Lymphocytes # (A) 1.6 k/uL (1.0-4.8); Lymphocytes % (A) 17 %; MCH 29.6 pg (25.0-35.0); MCHC 32.5 g/dL (31.0-37.0); MCV 90.8 fL (80.0-100.0); Mean Platelet Volume 9.7; Monocytes # (A) 0.7 k/uL (0-1.0); Monocytes % (A) 7 %; Neutrophils # (A) 6.5 k/uL (1.3-7.7); Neutrophils % (A) 70 %; RBC 4.51 m/uL (3.80-5.40); RDW 15.6 % (11.5-15.5); WBC 9.3 k/uL (3.8-10.6)
[2023-04-27 17:08] LABS: Appearance,Urine Clear (Clear); Bilirubin,Urine 1+ (Negative); Blood,Urine Trace (Negative); Color,Urine Light Yellow; Glucose,Urine (UA) Negative (Negative); Hyaline Casts,Urine 7 /lpf (0-2); Leukocyte Esterase,Urine Negative (Negative); Mucus,Urine Rare /hpf; Nitrite,Urine Negative (Negative); PH, Urine 5.5 (5.0-8.0); Protein,Urine 1+ (Negative); RBC,Urine <1 /hpf (0-5); Specific Gravity,Urine 1.016 (1.001-1.035); WBC,Urine 1 /hpf (0-5)
[2023-04-27 17:36] LABS: Platelet Count 169 k/uL (150-450)
[2023-04-27 17:54] LABS: Ketones,Urine 4+ (Negative)
[2023-04-27] MEDS ORDERED: NALOXONE 0.4 MG/ML 1 ML VIAL IV PRN (19:33)
[2023-04-27] MEDS ORDERED: PROCHLORPERAZINE 10 MG TAB PO PRN (19:36)
[2023-04-27] MEDS ORDERED: MECLIZINE 25 MG TAB PO PRN (19:36)
[2023-04-27] MEDS ORDERED: MELATONIN 5 MG TABLET PO PRN (19:36)
[2023-04-27] MEDS ORDERED: Insulin Aspart (For Pump) 100 UNIT/ML VIAL SQ-PUMP SCH (20:00)
[2023-04-27] MEDS: ONDANSETRON 4 MG/2 ML VIAL IVP PRN (20:11)
[2023-04-27] MEDS: HYDROcodone/APAP 10-325MG 1 EACH TAB PO PRN (20:12)
[2023-04-27] MEDS: busPIRone HCl 5 MG TAB PO SCH (20:13)
[2023-04-27] MEDS: DORZOLAMIDE HCL 2% DROPS 10 ML BTL RIGHT EYE SCH (20:38)
[2023-04-27] MEDS: BRIMONIDINE TARTRATE 0.2% DROPS 5 ML BTL RIGHT EYE SCH (20:38)
[2023-04-27] MEDS: SODIUM CHLORIDE 0.9% 1,000 ML IV SCH (20:39)
[2023-04-27] MEDS ORDERED: MAGNESIUM OXIDE 400 MG TAB PO SCH (21:00)
[2023-04-27] MEDS ORDERED: ATORVASTATIN 10 MG TAB PO SCH (21:00)
[2023-04-27] MEDS ORDERED: METOPROLOL SUCCINATE (ER) 100 MG TAB.ER.24H PO SCH (21:00)
[2023-04-27] MEDS ORDERED: POTASSIUM CHLORIDE ER 10 MEQ TAB.ER.PRT PO SCH (21:00)
[2023-04-28] MEDS: HYDROcodone/APAP 10-325MG 1 EACH TAB PO PRN (03:33)
[2023-04-28] MEDS: SODIUM CHLORIDE 0.9% 1,000 ML IV SCH (03:34)
[2023-04-28 07:04] LABS: Glucose,Whole Blood 140 mg/dL (70-110)
[2023-04-28] MEDS ORDERED: HYDROCORTISONE 10 MG TAB PO SCH (07:30)
[2023-04-28] MEDS ORDERED: INSULIN ASPART (NovoLOG) 100 UNIT/ML VIAL SQ SCH (07:30)
[2023-04-28] MEDS: ONDANSETRON 4 MG/2 ML VIAL IVP PRN (08:33)
[2023-04-28] MEDS ORDERED: PANTOPRAZOLE 40 MG/10 ML VIAL IV SCH (09:00)
[2023-04-28] MEDS ORDERED: buPROPion SR 100 MG TABLET.ER PO SCH (09:00)
[2023-04-28] MEDS ORDERED: MULTIVITAMINS, THERA 1 EACH TAB PO SCH (09:00)
[2023-04-28] MEDS ORDERED: lisinopriL 10 MG TAB PO SCH (09:00)
[2023-04-28] MEDS ORDERED: SPIRONOLACTONE 25 MG TAB PO SCH (09:00)
[2023-04-28] MEDS ORDERED: ASPIRIN 81 MG PO SCH (09:00)
[2023-04-28] MEDS ORDERED: hydroCHLOROthiazide 25 MG TAB PO SCH (09:00)
[2023-04-28] MEDS ORDERED: methylPREDNISolone SOD SUCCI 40 MG/ML 1 ML VIAL IV STA (09:08)
[2023-04-28] MEDS: DORZOLAMIDE HCL 2% DROPS 10 ML BTL RIGHT EYE SCH (09:47)
[2023-04-28] MEDS: BRIMONIDINE TARTRATE 0.2% DROPS 5 ML BTL RIGHT EYE SCH (09:47)
[2023-04-28] MEDS: busPIRone HCl 5 MG TAB PO SCH (09:49)
[2023-04-28 12:35] LABS: Glucose,Whole Blood 182 mg/dL (70-110)
[2023-04-28 14:51] VITALS: BP 153/79; PULSE 84; RESP 16; TEMP 97.7
== END 2023-04-28 15:08 | disposition home or self-care (01) ==
LOC: EC 09:24 → 6NMEDSUR 19:34
PROVIDERS: ADMIT Family Medicine; ATTEND Family Medicine
DX: E86.0 Dehydration (principal); N39.0 Urinary tract infection, site not specified; R62.7 Adult failure to thrive; E11.42 Type 2 diabetes mellitus with diabetic polyneuropathy; I10 Essential (primary) hypertension; E78.5 Hyperlipidemia, unspecified; M79.7 Fibromyalgia; F32.A Depression, unspecified; E27.40 Unspecified adrenocortical insufficiency; G47.33 Obstructive sleep apnea (adult) (pediatric); I83.90 Asymptomatic varicose veins of unspecified lower extremity; M54.81 Occipital neuralgia; M19.90 Unspecified osteoarthritis, unspecified site; Z79.4 Long term (current) use of insulin; Z79.52 Long term (current) use of systemic steroids; Z79.82 Long term (current) use of aspirin; Z79.899 Other long term (current) drug therapy; Z88.1 Allergy status to other antibiotic agents; Z88.5 Allergy status to narcotic agent; Z88.0 Allergy status to penicillin; Z88.8 Allergy status to other drugs, medicaments and biological substances; Z86.718 Personal history of other venous thrombosis and embolism; Z96.41 Presence of insulin pump (external) (internal); Z87.442 Personal history of urinary calculi; Z16.22 Resistance to vancomycin related antibiotics; Z16.12 Extended spectrum beta lactamase (ESBL) resistance; Z86.14 Personal history of Methicillin resistant Staphylococcus aureus infection; Z89.421 Acquired absence of other right toe(s); Z86.39 Personal history of other endocrine, nutritional and metabolic disease; Z90.49 Acquired absence of other specified parts of digestive tract; Z90.710 Acquired absence of both cervix and uterus; Z98.42 Cataract extraction status, left eye; Z98.41 Cataract extraction status, right eye; Z98.1 Arthrodesis status; Z98.890 Other specified postprocedural states; Z83.3 Family history of diabetes mellitus; Z82.49 Family history of ischemic heart disease and other diseases of the circulatory system; Z80.49 Family history of malignant neoplasm of other genital organs; Z82.5 Family history of asthma and other chronic lower respiratory diseases; Z82.3 Family history of stroke
CPT/HCPCS: 96375; 96376 ×2; 96374; 99285; 36415; 93005; 80053; 82550; 83605; 83690; 83735; 85025; 81001; 87040; 71046; 74018; G0378 ×2; S0183; J2920; J2405 ×2; C9113

== ENCOUNTER 2023-09-19 08:17 | Emergency (ER) | payer MEDICARE, BC ==
[2023-09-19] MEDS: SODIUM CHLORIDE 0.9% 1,000 ML IV STA (09:19)
[2023-09-19] MEDS: ONDANSETRON 4 MG/2 ML VIAL IVP STA ×2 (09:20→11:56)
[2023-09-19] MEDS: HYDROmorphone 1 MG/ML 1 ML SYRINGE IVP STA ×2 (09:23→11:33)
[2023-09-19 09:37] LABS: Basophils % (A) 0 %; Eosinophils # (A) 0.5 k/uL (0-0.7); Eosinophils % (A) 6 %; HCT 35.4 % (34.0-46.0); HGB 11.3 gm/dL (11.4-16.0); Hypochromasia Slight; Lymphocytes # (A) 1.2 k/uL (1.0-4.8); Lymphocytes % (A) 15 %; MCH 27.1 pg (25.0-35.0); MCV 84.9 fL (80.0-100.0); Mean Platelet Volume 9.5; Monocytes # (A) 0.8 k/uL (0-1.0); Monocytes % (A) 10 %; Neutrophils # (A) 5.3 k/uL (1.3-7.7); Neutrophils % (A) 67 %; Platelet Count 240 k/uL (150-450); RBC 4.17 m/uL (3.80-5.40); RDW 15.5 % (11.5-15.5); WBC 7.9 k/uL (3.8-10.6)
[2023-09-19 10:25] LABS: ALT 15 U/L (4-34); AST 23 U/L (14-36); African American GFR (CKD) 54 (>60 ml/min/1.73 sqM); Alkaline Phosphatase 102 U/L (38-126); Anion Gap 15 mmol/L; Blood Urea Nitrogen 20 mg/dL (7-17); Calcium 9.2 mg/dL (8.4-10.2); Carbon Dioxide 17 mmol/L (22-30); Chloride 105 mmol/L (98-107); Glucose 110 mg/dL (74-99); Lipase 56 U/L (23-300); Magnesium 1.7 mg/dL (1.6-2.3); Non-African American GFR(CKD) 47 (>60 ml/min/1.73 sqM); Potassium 3.9 mmol/L (3.5-5.1); Sodium 137 mmol/L (137-145); Total Bilirubin 0.5 mg/dL (0.2-1.3); Total Protein 6.2 g/dL (6.3-8.2)
[2023-09-19 10:44] VITALS: RESP 18
[2023-09-19 11:33] LABS: Appearance,Urine Clear (Clear); Bacteria,Urine Rare /hpf; Bilirubin,Urine Negative (Negative); Blood,Urine Small (Negative); Color,Urine Light Yellow; Glucose,Urine (UA) Negative (Negative); Ketones,Urine 1+ (Negative); Leukocyte Esterase,Urine Large (Negative); Mucus,Urine Occasional /hpf; Nitrite,Urine Negative (Negative); Protein,Urine Trace (Negative); RBC,Urine 1 /hpf (0-5); Specific Gravity,Urine 1.029 (1.001-1.035); Squamous Epithelial Cell,Urine 5 /hpf (0-4); Urobilinogen,Urine <2.0 mg/dL (<2.0); WBC,Urine 12 /hpf (0-5)
[2023-09-19] MEDS: PROCHLORPERAZINE INJ 10 MG/2 ML VIAL IVP STA (11:36)
--- NOTE | 2023-09-19 11:41 | ED ---
General Adult HPI - General Chief complaint: Skin/Abscess/Foreign Body Stated complaint: Rash/nausea Time Seen by Provider: 09/19/23 08:26 Source: patient, EMS, RN notes reviewed Mode of arrival: EMS Limitations: no limitations - History of Present Illness Initial comments: 73-year-old female presents emergency department with chief complaint of nausea which is a chronic issue. Patient states that seems to be worsening she does not have recurrent nausea meds. Patient also states she has a rash to the breast, groin region. Patient states she does not have any creams or powders for this. Patient denies any fevers or chills no localized abdominal pain states she just has diffuse pain everywhere. Patient has chronic pain issues. Denies chest pain, shortness of breath, headache or dizziness. - Related Data Home Medications Medication Instructions Recorded Confirmed Meclizine [Antivert] 25 mg PO BID PRN 11/26/17 04/27/23 Ferrous Sulfate [Iron (65 MG 325 mg PO HS 10/08/18 04/27/23 Elemental)] L.acidoph,Paracasei, B.lactis 2 cap PO DAILY 10/08/18 04/27/23 [Probiotic] Melatonin 5 mg PO HS PRN 10/08/18 04/27/23 Potassium 99 mg PO HS 10/08/18 04/27/23 Thiamine [Vitamin B-1] 100 mg PO HS 10/08/18 04/27/23 Vitamin B-Complex Drops 1 drop PO BID 10/08/18 04/27/23 C,E,Zinc,Copper 11/Qjlhx1r/Lut 1 cap PO HS 06/25/20 04/27/23 [Ocuvite Adult 50 Plus Softgel] Spironolactone 50 mg PO DAILY 06/25/20 04/27/23 Brimonidine Tartrate [Alphagan P 1 drop RIGHT EYE BID 11/26/20 04/27/23 0.2% Ophth Soln] Glucagon [Gvoke Pfs 1-Pack Syringe] 1 mg SQ ONCE PRN 11/26/20 04/27/23 Pantoprazole Sodium [Protonix] 40 mg PO HS 11/26/20 04/27/23 busPIRone HCl [Buspar] 5 mg PO BID 02/04/21 04/27/23 Insulin Aspart (For Pump) [NovoLOG 0.01 unit SQ-PUMP CONTINUOUS 03/03/21 04/27/23 (For Pump)] Rosuvastatin Calcium [Crestor] 5 mg PO HS 08/15/21 04/27/23 Cranberry Fruit Extract [Cranberry] 500 mg PO BID 05/25/22 04/27/23 Dorzolamide 2% [Trusopt 2%] 1 drop RIGHT EYE BID 05/25/22 04/27/23 Magnesium Oxide [Magnesium] 500 mg PO HS 05/25/22 04/27/23 Multivit-Min/Folic Acid/Kvd470 1 tab PO DAILY 05/25/22 04/27/23 [Alive Premium Adult Multivit] buPROPion HCL [Wellbutrin SR] 200 mg PO DAILY 05/25/22 04/27/23 hydroCHLOROthiazide [Hydrodiuril] 25 mg PO DAILY 05/25/22 04/27/23 lisinopriL [Zestril] 30 mg PO DAILY 07/17/22 04/27/23 Cephalexin [Keflex] 250 mg PO HS 09/04/22 04/27/23 Dhea 50mg With B-12 2500mcg 1 tab PO HS 04/27/23 04/27/23 Folic Acid 800mcg With Folate 1 tab PO HS 04/27/23 04/27/23 1333mg Gabapentin [Neurontin] 300 mg PO BID 04/27/23 04/27/23 HYDROcodone/APAP 10-325MG [[place] 1 tab PO Q6H PRN 04/27/23 04/27/23 10-325] Hydrocortisone [Cortef] 15 mg PO BID-W/MEALS 04/27/23 04/27/23 Insulin Aspart [NovoLOG Flexpen] See Protocol SQ ACHS PRN 04/27/23 04/27/23 Metoprolol Succinate (ER) [Toprol 100 mg PO HS 04/27/23 04/27/23 XL] Ondansetron [Zofran] 4 mg PO TID PRN 04/27/23 04/27/23 Turmeric Root Extract [Turmeric] 500 mg PO HS 04/27/23 04/27/23 Previous Rx's Medication Instructions Recorded Aspirin 81 mg PO DAILY #0 07/02/18 Hydrocortisone [Cortef] 5 mg PO HS #0 05/30/22 Promethazine [Phenergan] 25 mg PO BID PRN #30 tab 08/29/22 Prochlorperazine [Compazine] 10 mg PO Q6HR PRN #20 tab 09/05/22 Butalb/APAP/Caff 50-325-40Mg 1 tab PO Q6H PRN #12 tab 09/06/22 [Fioricet 50-325-40] Ondansetron Odt [Zofran ODT] 4 mg PO Q8HR PRN #15 tab 04/24/23 QUEtiapine FUMARATE [Seroquel] 25 mg PO HS #30 tab 04/28/23 Ciprofloxacin HCl [Cipro] 500 mg PO Q12HR #10 tablet 09/19/23 Nystatin 100,000 Unit/gm Powd 1 applic TOPICAL BID #60 gram 09/19/23 [Mycostatin Powder] Promethazine [Phenergan] 25 mg PO Q6HR PRN #14 tab 09/19/23 Allergies Allergy/AdvReac Type Severity Reaction Status Date / Time butorphanol tartrate Allergy BLISTERS Verified 09/19/23 08:28 [From Stadol] IN MOUTH ceftriaxone [From Rocephin] Allergy Unknown Verified 09/19/23 08:28 clarithromycin [From Biaxin] Allergy Rash/Hives Verified 09/19/23 08:28 clindamycin Allergy Unknown Verified 09/19/23 08:28 codeine Allergy Rash/Hives Verified 09/19/23 08:28 ergotamine tartrate Allergy Unknown Verified 09/19/23 08:28 [From Cafergot] erythromycin base Allergy RASH, GI Verified 09/19/23 08:28 [From E-Mycin] SYMPTOMS ketorolac tromethamine Allergy Rash/Hives Verified 09/19/23 08:28 [From Toradol] liraglutide [From Victoza] Allergy Rash/Hives Verified 09/19/23 08:28 metoclopramide [From Reglan] Allergy Hallucinati Verified 09/19/23 08:28 ons morphine Allergy Rash/Hives Verified 09/19/23 08:28 Penicillins Allergy Rash/Hives Verified 09/19/23 08:28 on upper body pentazocine lactate Allergy SEVERE Verified 09/19/23 08:28 [From Talwin] BLISTERS IN MOUTH pregabalin [From Lyrica] Allergy Rash/Hives Verified 09/19/23 08:28 propoxyphene HCl Allergy Rash/Hives Verified 09/19/23 08:28 [From Darvon] Sulfa (Sulfonamide Allergy Rash/Hives Verified 09/19/23 08:28 Antibiotics) tizanidine Allergy Unknown Verified 09/19/23 08:28 tramadol Allergy Unknown Verified 09/19/23 08:28 vancomycin Allergy Swelling Verified 09/19/23 08:28 monosodium glutamate [MSG] AdvReac Nausea & Verified 09/19/23 08:28 Vomiting nalbuphine HCl [From Nubain] AdvReac Nausea & Verified 09/19/23 08:28 Vomiting Review of Systems ROS Statement: Those systems with pertinent positive or pertinent negative responses have been documented in the HPI. ROS Other: All systems not noted in ROS Statement are negative. Past Medical History Past Medical History: Diabetes Mellitus, Deep Vein Thrombosis (DVT), Fibromyalgia, Hyperlipidemia, Hypertension, Osteoarthritis (OA), Pneumonia, Renal Disease, Sleep Apnea/CPAP/BIPAP, Vascular Disorder Additional Past Medical History / Comment(s): Pt recently admitted to [facility] with R flank pain. 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, DVT R calf in 1976, cardiac murmur, occipital neuraligia, balance issues-has narrowing of vessels "in the back of my head", vertigo, varicosities, states rt shoulder torn rotator cuff History of Any Multi-Drug Resistant Organisms: ESBL, MRSA, VRE Date of last positivie culture/infection: 11/25/20 ESBL;12/06/19 VRE; 03/10/11 MRSA MDRO Source:: Urine ESBL; Urine-VRE: MRSA 4th Right TOE Past Surgical History: Appendectomy, Back Surgery, Bladder Surgery, Breast Surgery, Cholecystectomy, Heart Catheterization, Hysterectomy, Orthopedic Surgery, Tonsillectomy Additional Past Surgical History / Comment(s): Lumbar fusions, bladder suspension, occipital nerve blocks, 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, R wrist/elbow nerve repair, bone removed R shoulder, 4th toe R foot partial amputation, bilateral feet/bunionectomies, R knee arthroscopies, R orbit decompression with ethmoidectomy and eyelid lift, EGD, colonoscopies, cystocopies, lithotripsy/stents, bilateral breast reduction, bilateral cataract removals, parathyroid surgery - April 2019, pain clinic procedures Past Anesthesia/Blood Transfusion Reactions: No Reported Reaction Additional Past Anesthesia/Blood Transfusion Reaction / Comment(s): never recieved blood Past Psychological History: Depression Smoking Status: Never smoker Past Alcohol Use History: Occasional Past Drug Use History: None Reported - Past Family History Father Family Medical History: Coronary Artery Disease (CAD), CVA/TIA, Diabetes Mellitus, Myocardial Infarction (OR), Pneumonia Additional Family Medical History / Comment(s): Father at the age of 78yrs from OR and pneumonia. Mother Family Medical History: Cancer, Congestive Heart Failure (CHF) Additional Family Medical History / Comment(s): Mother had uterine cancer. She recently at the age of 96yrs old from shingles. General Exam Limitations: no limitations General appearance: alert, in no apparent distress Head exam: Present: atraumatic, normocephalic, normal inspection Respiratory exam: Present: normal lung sounds bilaterally. Absent: respiratory distress, wheezes, rales, rhonchi, stridor Cardiovascular Exam: Present: regular rate, normal rhythm, normal heart sounds. Absent: systolic murmur, diastolic murmur, rubs, gallop, clicks GI/Abdominal exam: Present: soft, tenderness, normal bowel sounds. Absent: distended, guarding, rebound, rigid Neurological exam: Present: alert Skin exam: Present: warm, dry, intact, normal color, rash (Groin, under the breast erythematous rash) Course Vital Signs 09/19/23 09/19/23 09/19/23 08:24 10:27 11:59 Temperature 97.5 F L 98.2 F 98.1 F Pulse Rate 104 H 118 H 103 H Respiratory 20 18 18 Rate Blood Pressure 126/71 121/76 120/79 O2 Sat by Pulse 98 96 96 Oximetry Medical Decision Making - Medical Decision Making Was pt. sent in by a medical professional or institution (, PA, LANGUAGES AND LITERATURE INSTRUCTOR, urgent care, hospital, or fci...) When possible be specific @ -No Did you speak to anyone other than the patient for history (EMS, parent, family, police, friend...)? What history was obtained from this source @ -No Did you review nursing and triage notes (agree or disagree)? Why? @ -I reviewed and agree with nursing and triage notes Were old charts reviewed (outside hosp., previous admission, EMS record, old EKG , old radiological studies, urgent care reports/EKG's, fci records)? Report findings @ -Reviewed prior CBC, comp, urinalysis and urine culture Differential Diagnosis (chest pain, altered mental status, abdominal pain women, abdominal pain men, vaginal bleeding, weakness, fever, dyspnea, syncope, headache, dizziness, GI bleed, back pain, seizure, CVA, palpatations, mental health, musculoskeletal)? @ -Differential Abdominal Pain Women: Appendicitis, Cholecystitis, diverticulosis, ischemic bowel, pancreatitis, hepatitis, UTI, gastroenteritis, AAA, incarcerated hernia, bowel obstruction, constipation, inflammatory bowel, hepatitis, peptic ulcer disease, splenic infarction, perforated viscus, vulvitis, ovarian torsion, PID, kidney stone, placenta abruption, this is not meant to be an all-inclusive list EKG interpreted by me (3pts min.). @ -None X-rays interpreted by me (1pt min.). @ -None done CT interpreted by me (1pt min.). @ -None done U/S interpreted by me (1pt. min.). @ -None done What testing was considered but not performed or refused? (CT, X-rays, U/S, labs)? Why? @ -None What meds were considered but not given or refused? Why? @ -None Did you discuss the management of the patient with other professionals (professionals i.e. , PA, LANGUAGES AND LITERATURE INSTRUCTOR, lab, RT, psych nurse, executive secretary social welfare, plant science professor, teacher, commanding officer garage, insurance case manager)? Give summary @ -No Was smoking cessation discussed for >3mins.? @ -No Was critical care preformed (if so, how long)? @ -No Were there social determinants of health that impacted care today? How? (Homelessness, low income, unemployed, alcoholism, drug addiction, transportation, low edu. Level, literacy, decrease access to med. care, custodial, re hab)? @ -No Was there de-escalation of care discussed even if they declined (Discuss DNR or withdrawal of care, Hospice)? DNR status @ -No What co-morbidities impacted this encounter? (DM, HTN, Smoking, COPD, CAD, Cancer, CVA, ARF, Chemo, Hep., AIDS, mental health diagnosis, sleep apnea, morbid obesity)? @ -[Diabetes, chronic pain Was patient admitted / discharged? Hospital course, mention meds given and route, prescriptions, significant lab abnormalities, going to OR and other pertinent info. @ -Discharge patient was given analgesia, fluids and antiemetics patient is found to have a UTI. Patient is requesting ciprofloxacin and Zofran. Patient is discharged in stable condition return parameters discussed. Undiagnosed new problem with uncertain prognosis? @ -No Drug Therapy requiring intensive monitoring for toxicity (Heparin, Nitro, Insulin, Cardizem)? @ -No Were any procedures done? @ -No Diagnosis/symptom? @ -Chronic pain, nausea vomiting, cutaneous candidiasis, UTI Acute, or Chronic, or Acute on Chronic? @ -Chronic, acute, acute acute Uncomplicated (without systemic symptoms) or Complicated (systemic symptoms)? @ -Uncomplicated Side effects of treatment? @ -No Exacerbation, Progression, or Severe Exacerbation? @ -No Poses a threat to life or bodily function? How? (Chest pain, USA, OR, pneumonia, PE, COPD, DKA, ARF, appy, cholecystitis, CVA, Diverticulitis, Homicidal, Suici lorrie, threat to staff... and all critical care pts) @ -No - Lab Data Result diagrams: 09/19/23 08:55 09/19/23 08:55 Lab Results 09/19/23 09/19/23 09/19/23 Range/Units 08:55 08:55 08:55 WBC 7.9 (3.8-10.6) k/uL RBC 4.17 (3.80-5.40) m/uL Hgb 11.3 L (11.4-16.0) gm/dL Hct 35.4 (34.0-46.0) % MCV 84.9 (80.0-100.0) fL MCH 27.1 (25.0-35.0) pg MCHC 32.0 (31.0-37.0) g/dL RDW 15.5 (11.5-15.5) % Plt Count 240 (150-450) k/uL MPV 9.5 Neutrophils % 67 % Lymphocytes % 15 % Monocytes % 10 % Eosinophils % 6 % Basophils % 0 % Neutrophils # 5.3 (1.3-7.7) k/uL Lymphocytes # 1.2 (1.0-4.8) k/uL Monocytes # 0.8 (0-1.0) k/uL Eosinophils # 0.5 (0-0.7) k/uL Basophils # 0.0 (0-0.2) k/uL Hypochromasia Slight Sodium 137 (137-145) mmol/L Potassium 3.9 (3.5-5.1) mmol/L Chloride 105 (98-107) mmol/L Carbon Dioxide 17 L (22-30) mmol/L Anion Gap 15 mmol/L BUN 20 H (7-17) mg/dL Creatinine 1.15 H (0.52-1.04) mg/dL Est GFR (CKD-EPI)AfAm 54 (>60 ml/min/1.73 sqM) Est GFR (CKD-EPI)NonAf 47 (>60 ml/min/1.73 sqM) Glucose 110 H (74-99) mg/dL Calcium 9.2 (8.4-10.2) mg/dL Magnesium 1.7 (1.6-2.3) mg/dL Total Bilirubin 0.5 (0.2-1.3) mg/dL AST 23 (14-36) U/L ALT 15 (4-34) U/L Alkaline Phosphatase 102 (38-126) U/L Total Protein 6.2 L (6.3-8.2) g/dL Albumin 4.0 (3.5-5.0) g/dL Lipase 56 (23-300) U/L Urine Color Light Yellow Urine Appearance Clear (Clear) Urine pH 5.0 (5.0-8.0) Ur Specific [place] 1.029 (1.001-1.035) Urine Protein Trace H (Negative) Urine Glucose (UA) Negative (Negative) Urine Ketones 1+ H (Negative) Urine Blood Small H (Negative) Urine Nitrite Negative (Negative) Urine Bilirubin Negative (Negative) Urine Urobilinogen <2.0 (<2.0) mg/dL Ur Leukocyte Esterase Large H (Negative) Urine RBC 1 (0-5) /hpf Urine WBC 12 H (0-5) /hpf Ur Squamous Epith Cells 5 H (0-4) /hpf Urine Bacteria Rare H (None) /hpf Urine Mucus Occasional H (None) /hpf Disposition Clinical Impression: Cutaneous candidiasis, Nausea, Chronic pain, UTI (urinary tract infection) Disposition: HOME SELF-CARE Condition: Stable Instructions (If sedation given, give patient instructions): Skin Yeast Infection (ED) Additional Instructions: Please return to the Emergency Department if symptoms worsen or any other con cerns. Prescriptions: Ciprofloxacin HCl [Cipro] 500 mg PO Q12HR #10 tablet Nystatin 100,000 Unit/gm Powd [Mycostatin Powder] 1 applic TOPICAL BID #60 gram Promethazine [Phenergan] 25 mg PO Q6HR PRN #14 tab PRN Reason: Nausea Is patient prescribed a controlled substance at d/c from ED?: No Referrals: Andrew Gonsales MD [Primary Care Provider] - 1-2 days Time of Disposition: 11:41
[2023-09-19 12:08] VITALS: BP 120/79; PULSE 103; TEMP 98.1
== END 2023-09-19 12:09 | disposition home or self-care (01) ==
LOC: EC 08:17
DX: N39.0 Urinary tract infection, site not specified (principal); G89.29 Other chronic pain; B37.9 Candidiasis, unspecified; Z88.0 Allergy status to penicillin; Z88.1 Allergy status to other antibiotic agents; Z88.2 Allergy status to sulfonamides; Z88.8 Allergy status to other drugs, medicaments and biological substances; Z88.5 Allergy status to narcotic agent; Z88.6 Allergy status to analgesic agent
CPT/HCPCS: 36415; 80053; 83690; 83735; 85025; 81001; 99284; 96374; 96375 ×2; 96376 ×2; 96361; J3360; J2405; J1170

== ENCOUNTER 2023-09-19 20:49 | Observation (INO) | payer MEDICARE, BC ==
--- NOTE | 2023-09-19 21:15 | ED ---
Abdominal Pain HPI - General Chief Complaint: Abdominal Pain Stated Complaint: ABD pain Time Seen by Provider: 09/19/23 20:56 Source: patient, EMS, RN notes reviewed, old records reviewed Mode of arrival: EMS Limitations: no limitations - History of Present Illness Initial Comments: This is a 73-year-old female to the ER for evaluation today. Patient is here for evaluation abdominal pain persistent abdominal pain here in the emergency room with mild nausea and vomiting. Patient unable to take antibiotics at home with recent diagnosis of urinary tract infection. Patient was then in the emergency department this morning and discharged home and symptoms have just progressed at home MD Complaint: abdominal pain -: days(s) Location: diffuse, epigastric, suprapubic Radiation: epigastric, suprapubic Migration to: epigastric, suprapubic Severity: moderate Severity scale (1-10): 5 Quality: aching Consistency: constant Improves With: nothing Worsens With: nothing Associated Symptoms: nausea, vomiting Treatments Prior to Arrival: other (0) - Related Data Home Medications Medication Instructions Recorded Confirmed Meclizine [Antivert] 25 mg PO BID PRN 11/26/17 04/27/23 Ferrous Sulfate [Iron (65 MG 325 mg PO HS 10/08/18 04/27/23 Elemental)] L.acidoph,Paracasei, B.lactis 2 cap PO DAILY 10/08/18 04/27/23 [Probiotic] Melatonin 5 mg PO HS PRN 10/08/18 04/27/23 Potassium 99 mg PO HS 10/08/18 04/27/23 Thiamine [Vitamin B-1] 100 mg PO HS 10/08/18 04/27/23 Vitamin B-Complex Drops 1 drop PO BID 10/08/18 04/27/23 C,E,Zinc,Copper 11/Gpcjy3u/Lut 1 cap PO HS 06/25/20 04/27/23 [Ocuvite Adult 50 Plus Softgel] Spironolactone 50 mg PO DAILY 06/25/20 04/27/23 Brimonidine Tartrate [Alphagan P 1 drop RIGHT EYE BID 11/26/20 04/27/23 0.2% Ophth Soln] Glucagon [Gvoke Pfs 1-Pack Syringe] 1 mg SQ ONCE PRN 11/26/20 04/27/23 Pantoprazole Sodium [Protonix] 40 mg PO HS 11/26/20 04/27/23 busPIRone HCl [Buspar] 5 mg PO BID 02/04/21 04/27/23 Insulin Aspart (For Pump) [NovoLOG 0.01 unit SQ-PUMP CONTINUOUS 03/03/21 04/27/23 (For Pump)] Rosuvastatin Calcium [Crestor] 5 mg PO HS 08/15/21 04/27/23 Cranberry Fruit Extract [Cranberry] 500 mg PO BID 05/25/22 04/27/23 Dorzolamide 2% [Trusopt 2%] 1 drop RIGHT EYE BID 05/25/22 04/27/23 Magnesium Oxide [Magnesium] 500 mg PO HS 05/25/22 04/27/23 Multivit-Min/Folic Acid/Uit940 1 tab PO DAILY 05/25/22 04/27/23 [Alive Premium Adult Multivit] buPROPion HCL [Wellbutrin SR] 200 mg PO DAILY 05/25/22 04/27/23 hydroCHLOROthiazide [Hydrodiuril] 25 mg PO DAILY 05/25/22 04/27/23 lisinopriL [Zestril] 30 mg PO DAILY 07/17/22 04/27/23 Cephalexin [Keflex] 250 mg PO HS 09/04/22 04/27/23 Dhea 50mg With B-12 2500mcg 1 tab PO HS 04/27/23 04/27/23 Folic Acid 800mcg With Folate 1 tab PO HS 04/27/23 04/27/23 1333mg Gabapentin [Neurontin] 300 mg PO BID 04/27/23 04/27/23 HYDROcodone/APAP 10-325MG [[place] 1 tab PO Q6H PRN 04/27/23 04/27/23 10-325] Hydrocortisone [Cortef] 15 mg PO BID-W/MEALS 04/27/23 04/27/23 Insulin Aspart [NovoLOG Flexpen] See Protocol SQ ACHS PRN 04/27/23 04/27/23 Metoprolol Succinate (ER) [Toprol 100 mg PO HS 04/27/23 04/27/23 XL] Ondansetron [Zofran] 4 mg PO TID PRN 04/27/23 04/27/23 Turmeric Root Extract [Turmeric] 500 mg PO HS 04/27/23 04/27/23 Previous Rx's Medication Instructions Recorded Aspirin 81 mg PO DAILY #0 07/02/18 Hydrocortisone [Cortef] 5 mg PO HS #0 05/30/22 Promethazine [Phenergan] 25 mg PO BID PRN #30 tab 08/29/22 Prochlorperazine [Compazine] 10 mg PO Q6HR PRN #20 tab 09/05/22 Butalb/APAP/Caff 50-325-40Mg 1 tab PO Q6H PRN #12 tab 09/06/22 [Fioricet 50-325-40] Ondansetron Odt [Zofran ODT] 4 mg PO Q8HR PRN #15 tab 04/24/23 QUEtiapine FUMARATE [Seroquel] 25 mg PO HS #30 tab 04/28/23 Ciprofloxacin HCl [Cipro] 500 mg PO Q12HR #10 tablet 09/19/23 Nystatin 100,000 Unit/gm Powd 1 applic TOPICAL BID #60 gram 09/19/23 [Mycostatin Powder] Promethazine [Phenergan] 25 mg PO Q6HR PRN #14 tab 09/19/23 Allergies Allergy/AdvReac Type Severity Reaction Status Date / Time butorphanol tartrate Allergy BLISTERS Verified 09/19/23 08:28 [From Stadol] IN MOUTH ceftriaxone [From Rocephin] Allergy Unknown Verified 09/19/23 08:28 clarithromycin [From Biaxin] Allergy Rash/Hives Verified 09/19/23 08:28 clindamycin Allergy Unknown Verified 09/19/23 08:28 codeine Allergy Rash/Hives Verified 09/19/23 08:28 ergotamine tartrate Allergy Unknown Verified 09/19/23 08:28 [From Cafergot] erythromycin base Allergy RASH, GI Verified 09/19/23 08:28 [From E-Mycin] SYMPTOMS ketorolac tromethamine Allergy Rash/Hives Verified 09/19/23 08:28 [From Toradol] liraglutide [From Victoza] Allergy Rash/Hives Verified 09/19/23 08:28 metoclopramide [From Reglan] Allergy Hallucinati Verified 09/19/23 08:28 ons morphine Allergy Rash/Hives Verified 09/19/23 08:28 Penicillins Allergy Rash/Hives Verified 09/19/23 08:28 on upper body pentazocine lactate Allergy SEVERE Verified 09/19/23 08:28 [From Talwin] BLISTERS IN MOUTH pregabalin [From Lyrica] Allergy Rash/Hives Verified 09/19/23 08:28 propoxyphene HCl Allergy Rash/Hives Verified 09/19/23 08:28 [From Darvon] Sulfa (Sulfonamide Allergy Rash/Hives Verified 09/19/23 08:28 Antibiotics) tizanidine Allergy Unknown Verified 09/19/23 08:28 tramadol Allergy Unknown Verified 09/19/23 08:28 vancomycin Allergy Swelling Verified 09/19/23 08:28 monosodium glutamate [MSG] AdvReac Nausea & Verified 09/19/23 08:28 Vomiting nalbuphine HCl [From Nubain] AdvReac Nausea & Verified 09/19/23 08:28 Vomiting Review of Systems ROS Statement: Those systems with pertinent positive or pertinent negative responses have been documented in the HPI. ROS Other: All systems not noted in ROS Statement are negative. Past Medical History Past Medical History: Diabetes Mellitus, Deep Vein Thrombosis (DVT), Fibromyalgia, Hyperlipidemia, Hypertension, Osteoarthritis (OA), Pneumonia, Shanna l Disease, Sleep Apnea/CPAP/BIPAP, Vascular Disorder Additional Past Medical History / Comment(s): Pt recently admitted to [facility] with R flank pain. 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, DVT R calf in 1976, cardiac murmur, occipital neuraligia, balance issues-has narrowing of vessels "in the back of my head", vertigo, varicosities, states rt shoulder torn rotator cuff History of Any Multi-Drug Resistant Organisms: ESBL, MRSA, VRE Date of last positivie culture/infection: 11/25/20 ESBL;12/06/19 VRE; 03/10/11 MRSA MDRO Source:: Urine ESBL; Urine-VRE: MRSA 4th Right TOE Past Surgical History: Appendectomy, Back Surgery, Bladder Surgery, Breast Surgery, Cholecystectomy, Heart Catheterization, Hysterectomy, Orthopedic Surgery, Tonsillectomy Additional Past Surgical History / Comment(s): Lumbar fusions, bladder suspension, occipital nerve blocks, 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, R wrist/elbow nerve repair, bone removed R shoulder, 4th toe R foot partial amputation, bilateral feet/bunionectomies, R knee arthroscopies, R orbit decompression with ethmoidectomy and eyelid lift, EGD, colonoscopies, cystocopies, lithotripsy/stents, bilateral breast reduction, bilateral cataract removals, parathyroid surgery - April 2019, pain clinic procedures Past Anesthesia/Blood Transfusion Reactions: No Reported Reaction Additional Past Anesthesia/Blood Transfusion Reaction / Comment(s): never recieved blood Past Psychological History: Depression Smoking Status: Never smoker Past Alcohol Use History: Occasional Past Drug Use History: None Reported - Past Family History Father Family Medical History: Coronary Artery Disease (CAD), CVA/TIA, Diabetes Mellitus, Myocardial Infarction (IN), Pneumonia Additional Family Medical History / Comment(s): Father at the age of 78yrs from IN and pneumonia. Mother Family Medical History: Cancer, Congestive Heart Failure (CHF) Additional Family Medical History / Comment(s): Mother had uterine cancer. She recently at the age of 96yrs old from shingles. General Exam General appearance: alert, in no apparent distress Head exam: Present: atraumatic, normocephalic, normal inspection Eye exam: Present: normal appearance, PERRL, EOMI. Absent: scleral icterus, conjunctival injection, periorbital swelling ENT exam: Present: normal exam, mucous membranes moist Neck exam: Present: normal inspection. Absent: tenderness, meningismus, lymphadenopathy Respiratory exam: Present: normal lung sounds bilaterally. Absent: respiratory distress, wheezes, rales, rhonchi, stridor Cardiovascular Exam: Present: regular rate, normal rhythm, normal heart sounds. Absent: systolic murmur, diastolic murmur, rubs, gallop, clicks GI/Abdominal exam: Present: soft, normal bowel sounds. Absent: distended, tenderness, guarding, rebound, rigid Extremities exam: Present: normal inspection, full ROM, normal capillary refill. Absent: tenderness, pedal edema, joint swelling, calf tenderness Back exam: Present: normal inspection Neurological exam: Present: alert, oriented X3, CN II-XII intact Psychiatric exam: Present: normal affect, normal mood Skin exam: Present: warm, dry, intact, normal color. Absent: rash Course Vital Signs 09/19/23 09/19/23 20:52 20:56 Temperature 99.4 F Pulse Rate 61 Respiratory 19 Rate Blood Pressure 102/72 O2 Sat by Pulse 97 100 Oximetry - Reevaluation(s) Reevaluation #1: 09/19/23 21:22 Medical records reviewed Reevaluation #2: 09/19/23 21:22 Patient symptoms are improving Reevaluation #3: 09/19/23 21:22 Patient informed of results and questions answered Reevaluation #4: Was pt. sent in by a medical professional or institution (, [facility], [employer], urgent care, hospital, or [place] [facility] facility...) When possible be specific @ -no Did you speak to anyone other than the patient for history (EMS, parent, family, police, friend...)? What history was obtained from this source @ -no Did you review nursing and triage notes (agree or disagree)? Why? @ -agree Are old charts reviewed (outside hosp., previous admission, EMS record, old EKG, old radiological studies, urgent care reports/EKG's, [place] [facility] records)? Report findings @ -yes Differential Diagnosis (chest pain, altered mental status, abdominal pain women, abdominal pain men, vaginal bleeding, weakness, fever, dyspnea, syncope, headache, dizziness, GI bleed, back pain, seizure, CVA, palpatations, mental health, musculoskeletal)? @ -prior EKG interpreted by me (3pts min.). @ -yes X-rays interpreted by me (1pt min.). @ -yes negative for acute disease CT interpreted by me (1pt min.). @ -no U/S interpreted by me (1pt. min.). @ -no What testing was considered but not performed or refused? (CT, X-rays, U/S, labs)? Why? @ -none What meds were considered but not given or refused? Why? @ -none Did you discuss the management of the patient with other professionals (professionals i.e. [facility] Rodriguez, [employer], lab, RT, psych nurse, clinical social work aide, statistics intern, teacher, admissions officer, pillowcase cutter)? Give summary @ -no Was smoking cessation discussed for >3mins.? @ -no Was critical care preformed (if so, how long)? @ -no Were there social determinants of health that impacted care today? How? (Homelessness, low income, unemployed, alcoholism, drug addiction, transportation, low edu. Level, literacy, decrease access to med. care, usp, rehab)? @ -none Was there de-escalation of care discussed even if they declined (Discuss DNR or withdrawal of care, Hospice)? DNR status @ -no What co-morbidities impacted this encounter? (DM, HTN, Smoking, COPD, CAD, C ancer, CVA, ARF, Chemo, Hep., AIDS, mental health diagnosis, sleep apnea, morbid obesity)? @ -none Was patient admitted / discharged? Hospital course, mention meds given and route, prescriptions, significant lab abnormalities, going to OR and other pertinent info. @ - Undiagnosed new problem with uncertain prognosis? @ -no Drug Therapy requiring intensive monitoring for toxicity (Heparin, Nitro, Insulin, Cardizem)? @ -no Were any procedures done? @ -no Diagnosis/symptom? @ - Acute, or Chronic, or Acute on Chronic? @ -Acute Uncomplicated (without systemic symptoms) or Complicated (systemic symptoms)? @ -Complicated Side effects of treatment? @ -no Exacerbation, Progression, or Severe Exacerbation? @ -exacerbation Poses a threat to life or bodily function? How? (Chest pain, [place], [place], pneumonia, PE, COPD, DKA, ARF, appy, cholecystitis, CVA, Diverticulitis, Homicidal, Suicidal, threat to staff... and all critical care pts) @ -yes Reevaluation #5: Differential Abdominal Pain Men: Appendicitis, cholecystitis, diverticulosis, ischemic bowel, pancreatitis, hepatitis, UTI, gastroenteritis, AAA, incarcerated hernia, bowel obstruction, constipation, inflammatory bowel, hepatitis, peptic ulcer disease, splenic infarction, perforated viscus, testicular torsion, this is not meant to be an all-inclusive list - Consultations Consultation #1: Spoke with Dr. Gonsales who agrees to admit this patient Medical Decision Making - Medical Decision Making 73 female to the ER for evaluation today. Patient presents today for evaluation of of abdominal pain with intractable nausea vomiting. Patient does have urinary tract infection will admit for pain control and IV antibiotics Disposition Clinical Impression: Weakness, Chronic pain, Nausea, Vomiting, UTI (urinary tract infection), Nausea & vomiting Disposition: ADMITTED IP TO THIS HOSP Condition: Fair Is patient prescribed a controlled substance at d/c from ED?: No Referrals: Andrew Gonsales MD [Primary Care Provider] - 1-2 days Time of Disposition: 21:20
[2023-09-19] MEDS ORDERED: ONDANSETRON 4 MG/2 ML VIAL IVP PRN (21:19)
[2023-09-19] MEDS ORDERED: NALOXONE 0.4 MG/ML 1 ML VIAL IV PRN (21:19)
[2023-09-19 21:33] LABS: Basophils # (A) 0.1 k/uL (0-0.2); Basophils % (A) 1 %; Eosinophils # (A) 0.4 k/uL (0-0.7); Eosinophils % (A) 4 %; HCT 36.3 % (34.0-46.0); HGB 11.4 gm/dL (11.4-16.0); Hypochromasia Moderate; Lymphocytes # (A) 1.4 k/uL (1.0-4.8); Lymphocytes % (A) 15 %; MCH 27.5 pg (25.0-35.0); MCHC 31.5 g/dL (31.0-37.0); MCV 87.3 fL (80.0-100.0); Mean Platelet Volume 8.5; Monocytes # (A) 0.9 k/uL (0-1.0); Monocytes % (A) 9 %; Neutrophils # (A) 6.7 k/uL (1.3-7.7); Neutrophils % (A) 69 %; Platelet Count 227 k/uL (150-450); RBC 4.16 m/uL (3.80-5.40); RDW 15.4 % (11.5-15.5); WBC 9.6 k/uL (3.8-10.6)
[2023-09-19] MEDS: SODIUM CHLORIDE 0.9% 1,000 ML IV STA (21:40)
[2023-09-19] MEDS: PANTOPRAZOLE 40 MG/10 ML VIAL IVP STA (21:40)
[2023-09-19] MEDS: ONDANSETRON 4 MG/2 ML VIAL IVP STA (21:42)
[2023-09-19] MEDS: HYDROmorphone 1 MG/ML 1 ML SYRINGE IVP STA (21:45)
[2023-09-19 21:52] LABS: ALT 14 U/L (4-34); African American GFR (CKD) 49 (>60 ml/min/1.73 sqM); Albumin 3.9 g/dL (3.5-5.0); Amylase 52 U/L (30-110); Anion Gap 19 mmol/L; Blood Urea Nitrogen 18 mg/dL (7-17); Calcium 9.1 mg/dL (8.4-10.2); Carbon Dioxide 12 mmol/L (22-30); Chloride 106 mmol/L (98-107); Glucose 122 mg/dL (74-99); Lipase 51 U/L (23-300); Non-African American GFR(CKD) 43 (>60 ml/min/1.73 sqM); Sodium 137 mmol/L (137-145); Total Bilirubin 0.6 mg/dL (0.2-1.3); Total Protein 6.1 g/dL (6.3-8.2)
[2023-09-19 21:54] LABS: AST 29 U/L (14-36); Alkaline Phosphatase 95 U/L (38-126); Potassium 4.7 mmol/L (3.5-5.1)
[2023-09-20] MEDS: HYDROmorphone 1 MG/ML 1 ML SYRINGE IVP PRN (01:13)
[2023-09-20] MEDS: PROMETHAZINE SUPPOSITORY 25 MG SUPP RECTAL STA (04:05)
[2023-09-20 04:16] LABS: Glucose,Whole Blood 115 mg/dL (70-110)
[2023-09-20 06:35] VITALS: RESP 20
[2023-09-20 08:20] LABS: Basophils % (A) 0 %; Eosinophils # (A) 0.5 k/uL (0-0.7); Eosinophils % (A) 5 %; HCT 35.5 % (34.0-46.0); HGB 10.4 gm/dL (11.4-16.0); Hypochromasia Marked; Lymphocytes # (A) 1.3 k/uL (1.0-4.8); Lymphocytes % (A) 14 %; MCH 27.1 pg (25.0-35.0); MCHC 29.3 g/dL (31.0-37.0); Mean Platelet Volume 8.6; Monocytes # (A) 0.8 k/uL (0-1.0); Monocytes % (A) 8 %; Neutrophils # (A) 6.9 k/uL (1.3-7.7); Neutrophils % (A) 71 %; Platelet Count 228 k/uL (150-450); RBC 3.85 m/uL (3.80-5.40); RDW 15.4 % (11.5-15.5); WBC 9.7 k/uL (3.8-10.6)
[2023-09-20 08:21] LABS: ALT 13 U/L (4-34); AST 30 U/L (14-36); African American GFR (CKD) 51 (>60 ml/min/1.73 sqM); Albumin 3.7 g/dL (3.5-5.0); Alkaline Phosphatase 100 U/L (38-126); Anion Gap 17 mmol/L; Blood Urea Nitrogen 15 mg/dL (7-17); Calcium 8.9 mg/dL (8.4-10.2); Carbon Dioxide 10 mmol/L (22-30); Chloride 110 mmol/L (98-107); Glucose 155 mg/dL (74-99); Magnesium 1.5 mg/dL (1.6-2.3); Non-African American GFR(CKD) 44 (>60 ml/min/1.73 sqM); Phosphorus 4.3 mg/dL (2.5-4.5); Sodium 137 mmol/L (137-145); Total Bilirubin 0.5 mg/dL (0.2-1.3); Total Protein 5.8 g/dL (6.3-8.2)
[2023-09-20 08:24] LABS: MCV 92.4 fL (80.0-100.0)
[2023-09-20] MEDS: PANTOPRAZOLE 40 MG/10 ML VIAL IV SCH (08:34)
[2023-09-20] MEDS: PROCHLORPERAZINE INJ 10 MG/2 ML VIAL IVP PRN (08:34)
[2023-09-20 08:35] VITALS: BP 125/68; TEMP 99.2
[2023-09-20] MEDS ORDERED: HYDROcodone/APAP 10-325MG 1 EACH TAB PO PRN (08:59)
[2023-09-20] MEDS ORDERED: DEXTROSE 50% SYRINGE 50 ML IVP PRN ×2 (09:00)
[2023-09-20] MEDS: ASPIRIN 81 MG PO SCH (09:55)
[2023-09-20] MEDS: busPIRone HCl 10 MG TAB PO SCH (09:55)
[2023-09-20] MEDS: hydroCHLOROthiazide 25 MG TAB PO SCH (09:55)
[2023-09-20] MEDS: buPROPion XL 300 MG TAB.ER.24H PO SCH (09:55)
[2023-09-20] MEDS: GABAPENTIN 300 MG CAP PO SCH (09:55)
[2023-09-20] MEDS: SPIRONOLACTONE 25 MG TAB PO SCH (09:56)
[2023-09-20 10:36] VITALS: PULSE 130
[2023-09-20] MEDS ORDERED: INSULIN ASPART (NovoLOG) 100 UNIT/ML VIAL SQ SCH (12:30)
[2023-09-20] MEDS ORDERED: METOPROLOL SUCCINATE (ER) 100 MG TAB.ER.24H PO SCH (21:00)
[2023-09-20] MEDS ORDERED: ATORVASTATIN 10 MG TAB PO SCH (21:00)
== END 2023-09-20 15:01 | disposition home health service (06) ==
LOC: EC 20:49 → 6NMEDSUR 21:20
PROVIDERS: ADMIT Family Medicine; ATTEND Family Medicine
DX: R10.13 Epigastric pain (principal); R11.2 Nausea with vomiting, unspecified; R10.2 Pelvic and perineal pain; E11.9 Type 2 diabetes mellitus without complications; E78.5 Hyperlipidemia, unspecified; I10 Essential (primary) hypertension; M79.7 Fibromyalgia; N39.0 Urinary tract infection, site not specified; G89.29 Other chronic pain; M19.90 Unspecified osteoarthritis, unspecified site; E11.40 Type 2 diabetes mellitus with diabetic neuropathy, unspecified; G47.33 Obstructive sleep apnea (adult) (pediatric); E27.40 Unspecified adrenocortical insufficiency; Z89.421 Acquired absence of other right toe(s); Z87.01 Personal history of pneumonia (recurrent); Z16.12 Extended spectrum beta lactamase (ESBL) resistance; Z86.14 Personal history of Methicillin resistant Staphylococcus aureus infection; Z16.21 Resistance to vancomycin; Z86.718 Personal history of other venous thrombosis and embolism; Z79.899 Other long term (current) drug therapy; Z79.4 Long term (current) use of insulin; Z88.8 Allergy status to other drugs, medicaments and biological substances; Z88.1 Allergy status to other antibiotic agents; Z88.0 Allergy status to penicillin; Z88.5 Allergy status to narcotic agent; Z88.2 Allergy status to sulfonamides; Z82.49 Family history of ischemic heart disease and other diseases of the circulatory system; Z83.3 Family history of diabetes mellitus; Z96.41 Presence of insulin pump (external) (internal); Z79.82 Long term (current) use of aspirin; Z87.442 Personal history of urinary calculi; Z90.710 Acquired absence of both cervix and uterus
CPT/HCPCS: 96376; 96360 ×2; 96365; 96366; 96375 ×2; 99285; 80053 ×2; 82150; 83605; 83690; 83735; 84100; 85025 ×2; G0378 ×2; J0780; J2405; J1170 ×2; C9113 ×2

== ENCOUNTER 2023-09-22 19:21 | Inpatient (IN) | payer MEDICARE, BC ==
[2023-09-22] MEDS: SODIUM CHLORIDE 0.9% 1,000 ML IV STA (20:25)
[2023-09-22] MEDS: ONDANSETRON 4 MG/2 ML VIAL IVP STA (20:26)
[2023-09-22] MEDS: HYDROmorphone 0.5 MG/0.5 ML SYRINGE IVP STA (20:28)
[2023-09-22] MEDS: METOPROLOL SUCCINATE (ER) 100 MG TAB.ER.24H PO STA (20:34)
[2023-09-22] MEDS: PANTOPRAZOLE 40 MG/10 ML VIAL IVP STA (20:35)
[2023-09-22 20:47] LABS: Anisocytosis Slight; Basophils % (A) 0 %; Eosinophils # (A) 0.7 k/uL (0-0.7); Eosinophils % (A) 11 %; HCT 36.8 % (34.0-46.0); HGB 11.7 gm/dL (11.4-16.0); Hypochromasia Slight; Lymphocytes # (A) 1.3 k/uL (1.0-4.8); Lymphocytes % (A) 20 %; MCH 27.1 pg (25.0-35.0); MCHC 31.8 g/dL (31.0-37.0); Mean Platelet Volume 8.7; Monocytes # (A) 0.5 k/uL (0-1.0); Monocytes % (A) 8 %; Neutrophils # (A) 3.8 k/uL (1.3-7.7); Neutrophils % (A) 59 %; Platelet Count 276 k/uL (150-450); RBC 4.31 m/uL (3.80-5.40); RDW 16.2 % (11.5-15.5); WBC 6.5 k/uL (3.8-10.6)
[2023-09-22 20:54] LABS: MCV 85.3 fL (80.0-100.0)
[2023-09-22 21:00] LABS: Partial Thromboplastin Time 22.2 sec (22.0-30.0); Prothrombin Time 11.1 sec (10.0-12.5)
[2023-09-22 21:01] LABS: ALT 20 U/L (4-34); AST 40 U/L (14-36); African American GFR (CKD) 64 (>60 ml/min/1.73 sqM); Albumin 3.3 g/dL (3.5-5.0); Alkaline Phosphatase 93 U/L (38-126); Anion Gap 13 mmol/L; Blood Urea Nitrogen 15 mg/dL (7-17); Calcium 9.8 mg/dL (8.4-10.2); Carbon Dioxide 20 mmol/L (22-30); Chloride 106 mmol/L (98-107); Glucose 118 mg/dL (74-99); Magnesium 1.8 mg/dL (1.6-2.3); Non-African American GFR(CKD) 55 (>60 ml/min/1.73 sqM); Potassium 4.1 mmol/L (3.5-5.1); Sodium 139 mmol/L (137-145); Total Bilirubin 0.4 mg/dL (0.2-1.3); Total Protein 5.5 g/dL (6.3-8.2)
[2023-09-22] MEDS: SODIUM CHLORIDE 0.9% 1,000 ML IV ONE (21:31)
--- NOTE | 2023-09-22 22:01 | ED ---
General Adult HPI - General Chief complaint: Weakness Stated complaint: UTI, Nausea, Weakness Time Seen by Provider: 09/22/23 19:35 Source: patient, EMS, RN notes reviewed, old records reviewed Mode of arrival: EMS Limitations: no limitations - History of Present Illness Initial comments: Patient is a 73-year-old female who presents emergency department complaining of weakness, intractable nausea and vomiting, with a history of recently diagnosed UTI but cannot tolerate oral antibiotics who presents emergency department complaining of continued symptoms. Was recently admitted for IV fluids and similar complaints. Presents for further evaluation. Denies chest pain. Denies shortness of breath. Denies lower extremity swelling or edema. Is not on blood thinners. Has chronic pain. States her blood sugars have been within acceptable limits. Presents for further evaluation. Patient appears to be in new onset A-fib with RVR. States she has noticed her heart rate has been fast. Denies leg swelling. Denies significant shortness of breath. Has no other acute complaints at this time. Is not on blood thinners. Presents for further evaluation. States she is feeling weak and has not eaten much in the last few days. Was due to talk with Dr. Gonsales regarding possible outpatient management and admission to rehab due to her continued weakness and intractable nausea and vomiting. Patient has chronic abdominal pain which is unchanged from baseline. - Related Data Home Medications Medication Instructions Recorded Confirmed Meclizine [Antivert] 25 mg PO QID PRN 11/26/17 09/20/23 Ferrous Sulfate [Iron (65 MG 325 mg PO HS 10/08/18 09/20/23 Elemental)] L.acidoph,Paracasei, B.lactis 2 cap PO DAILY 10/08/18 09/20/23 [Probiotic] Melatonin 5 mg PO HS PRN 10/08/18 09/20/23 Potassium 99 mg PO HS 10/08/18 09/20/23 Thiamine [Vitamin B-1] 100 mg PO HS 10/08/18 09/20/23 Vitamin B-Complex Drops 1 drop PO BID 10/08/18 09/20/23 C,E,Zinc,Copper 11/Rnecy5n/Lut 1 cap PO HS 06/25/20 09/20/23 [Ocuvite Adult 50 Plus Softgel] Spironolactone 50 mg PO DAILY 06/25/20 09/20/23 Brimonidine Tartrate [Alphagan P 1 drop RIGHT EYE BID 11/26/20 09/20/23 0.2% Ophth Soln] Glucagon [Gvoke Pfs 1-Pack Syringe] 1 mg SQ ONCE PRN 11/26/20 09/20/23 Pantoprazole Sodium [Protonix] 40 mg PO HS 11/26/20 09/20/23 Insulin Aspart (For Pump) [NovoLOG 0.01 unit SQ-PUMP CONTINUOUS 03/03/21 09/20/23 (For Pump)] Rosuvastatin Calcium [Crestor] 5 mg PO HS 08/15/21 09/20/23 Cranberry Fruit Extract [Cranberry] 500 mg PO BID 05/25/22 09/20/23 Dorzolamide 2% [Trusopt 2%] 1 drop RIGHT EYE BID 05/25/22 09/20/23 Multivit-Min/Folic Acid/Fmo491 1 tab PO DAILY 05/25/22 09/20/23 [Alive Premium Adult Multivit] hydroCHLOROthiazide [Hydrodiuril] 25 mg PO DAILY 05/25/22 09/20/23 lisinopriL [Zestril] 30 mg PO DAILY 07/17/22 09/20/23 Cephalexin [Keflex] 250 mg PO HS 09/04/22 09/20/23 Dhea 50mg With B-12 2500mcg 1 tab PO HS 04/27/23 09/20/23 Folic Acid 800mcg With Folate 1 tab PO HS 04/27/23 09/20/23 1333mg Gabapentin [Neurontin] 300 mg PO TID 04/27/23 09/20/23 HYDROcodone/APAP 10-325MG [[place] 1 tab PO Q6H PRN 04/27/23 09/20/23 10-325] Hydrocortisone [Cortef] 15 mg PO QAM 04/27/23 09/20/23 Insulin Aspart [NovoLOG Flexpen] See Protocol SQ ACHS PRN 04/27/23 09/20/23 Metoprolol Succinate (ER) [Toprol 100 mg PO HS 04/27/23 09/20/23 XL] Ondansetron [Zofran] 4 mg PO Q6H PRN 04/27/23 09/20/23 Turmeric Root Extract [Turmeric] 500 mg PO HS 04/27/23 09/20/23 Hydrocortisone [Cortef] 10 mg PO BID@1200,2000 09/20/23 09/20/23 Magnesium Oxide [Mag-Ox] 400 mg PO BID 09/20/23 09/20/23 Nystatin 100,000Unit/gm Cream 1 applic TOPICAL DIRECTED PRN 09/20/23 09/20/23 [Mycostatin Cream] Promethazine [Phenergan] 25 mg PO QID PRN 09/20/23 09/20/23 buPROPion XL [Wellbutrin XL] 300 mg PO DAILY 09/20/23 09/20/23 busPIRone HCl [Buspar] 10 mg PO TID 09/20/23 09/20/23 Previous Rx's Medication Instructions Recorded Aspirin 81 mg PO DAILY #0 07/02/18 Butalb/APAP/Caff 50-325-40Mg 1 tab PO Q6H PRN #12 tab 09/06/22 [Fioricet 50-325-40] Allergies Allergy/AdvReac Type Severity Reaction Status Date / Time butorphanol tartrate Allergy BLISTERS Verified 09/22/23 19:27 [From Stadol] IN MOUTH ceftriaxone [From Rocephin] Allergy Rash/Hives Verified 09/22/23 19:27 clarithromycin [From Biaxin] Allergy Rash/Hives Verified 09/22/23 19:27 clindamycin Allergy Rash/Hives Verified 09/22/23 19:27 codeine Allergy Rash/Hives Verified 09/22/23 19:27 ergotamine tartrate Allergy Rash/Hives Verified 09/22/23 19:27 [From Cafergot] erythromycin base Allergy RASH, GI Verified 09/22/23 19:27 [From E-Mycin] SYMPTOMS ketorolac tromethamine Allergy Rash/Hives Verified 09/22/23 19:27 [From Toradol] liraglutide [From Victoza] Allergy Rash/Hives Verified 09/22/23 19:27 morphine Allergy Rash/Hives Verified 09/22/23 19:27 Penicillins Allergy Rash/Hives Verified 09/22/23 19:27 on upper body pentazocine lactate Allergy SEVERE Verified 09/22/23 19:27 [From Talwin] BLISTERS IN MOUTH pregabalin [From Lyrica] Allergy Rash/Hives Verified 09/22/23 19:27 propoxyphene HCl Allergy Rash/Hives Verified 09/22/23 19:27 [From Darvon] Sulfa (Sulfonamide Allergy Rash/Hives Verified 09/22/23 19:27 Antibiotics) sulfamethoxazole Allergy Rash/Hives Verified 09/22/23 19:27 [From Bactrim] tizanidine Allergy Unknown Verified 09/22/23 19:27 tramadol Allergy Unknown Verified 09/22/23 19:27 trimethoprim [From Bactrim] Allergy Rash/Hives Verified 09/22/23 19:27 vancomycin Allergy lip Verified 09/22/23 19:27 swelling metoclopramide [From Reglan] AdvReac Hallucinati Verified 09/22/23 19:27 ons monosodium glutamate [MSG] AdvReac Nausea & Verified 09/22/23 19:27 Vomiting nalbuphine HCl [From Nubain] AdvReac Nausea & Verified 09/22/23 19:27 Vomiting Review of Systems ROS Statement: Those systems with pertinent positive or pertinent negative responses have been documented in the HPI. Review of Systems: CONST: Denies fever EYES: Denies blurry vision ENT: Denies nasal congestion C/V: Denies Chest pain RESP: Denies shortness of breath GI: Endorses nausea and vomiting : Denies dysuria SKIN: Denies rash. MSK: Denies joint pain. NEURO: Denies headache ROS Other: All systems not noted in ROS Statement are negative. Past Medical History Past Medical History: Diabetes Mellitus, Deep Vein Thrombosis (DVT), Fibromyalgia, Hyperlipidemia, Hypertension, Osteoarthritis (OA), Pneumonia, Renal Disease, Sleep Apnea/CPAP/BIPAP, Vascular Disorder Additional Past Medical History / Comment(s): Pt recently admitted to [facility] with R flank pain. 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, DVT R calf in 1976, cardiac murmur, occipital neuraligia, balance issues-has narrowing of vessels "in the back of my head", vertigo, varicosities, states rt shoulder torn rotator cuff History of Any Multi-Drug Resistant Organisms: ESBL, MRSA, VRE Date of last positivie culture/infection: 11/25/20 ESBL;12/06/19 VRE; 03/10/11 MRSA MDRO Source:: Urine ESBL; Urine-VRE: MRSA 4th Right TOE Past Surgical History: Appendectomy, Back Surgery, Bladder Surgery, Breast Surgery, Cholecystectomy, Heart Catheterization, Hysterectomy, Orthopedic Surgery, Tonsillectomy Additional Past Surgical History / Comment(s): Lumbar fusions, bladder suspension, occipital nerve blocks, 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, R wrist/elbow nerve repair, bone removed R shoulder, 4th toe R foot partial amputation, bilateral feet/bunionectomies, R knee arthroscopies, R orbit decompression with ethmoidectomy and eyelid lift, EGD, colonoscopies, cystocopies, lithotripsy/stents, bilateral breast reduction, bilateral cataract removals, parathyroid surgery - April 2019, pain clinic procedures Past Anesthesia/Blood Transfusion Reactions: No Reported Reaction Additional Past Anesthesia/Blood Transfusion Reaction / Comment(s): never recieved blood Past Psychological History: Depression Smoking Status: Never smoker Past Alcohol Use History: Occasional Past Drug Use History: None Reported - Past Family History Father Family Medical History: Coronary Artery Disease (CAD), CVA/TIA, Diabetes Mellitus, Myocardial Infarction (NM), Pneumonia Additional Family Medical History / Comment(s): Father at the age of 78yrs from NM and pneumonia. Mother Family Medical History: Cancer, Congestive Heart Failure (CHF) Additional Family Medical History / Comment(s): Mother had uterine cancer. She recently at the age of 96yrs old from shingles. General Exam - General Exam Comments Initial Comments: General: Appears in no acute distress. HEAD: Normal with no signs of head trauma. EYES: PERRLA, EOMI, conjunctiva normal, no discharge. ENT: Hearing grossly intact, normal oropharynx. Dry mucous membranes. RESPIRATORY: Clear breath sounds bilaterally. No wheezes, rales, or rhonchi. C/V: Irregular rate and rhythm. S1 and S2 auscultated, no edema, peripheral pulses 2+ and intact throughout ABD: Abd is soft, nontender, nondistended EXT: Normal range of motion, no obvious deformity SKIN: No rashes or lesions observed on exposed skin. NEURO: Alert and oriented x 4. No focal deficits. Limitations: no limitations Course Vital Signs 09/22/23 09/22/23 09/22/23 19:22 20:27 21:00 Temperature 97.9 F Pulse Rate 117 H 134 H 121 H Respiratory 20 20 20 Rate Blood Pressure 118/76 109/74 102/71 O2 Sat by Pulse 98 100 95 Oximetry Medical Decision Making - Medical Decision Making Was pt. sent in by a medical professional or institution (STEPHANY Rodriguez, SECURITY STRATEGIST, urgent care, hospital, or halfway...) When possible be specific @ -No Did you speak to anyone other than the patient for history (EMS, parent, family, police, friend...)? What history was obtained from this source @ -No Did you review nursing and triage notes (agree or disagree)? Why? @ -I reviewed and agree with nursing and triage notes Were old charts reviewed (outside hosp., previous admission, EMS record, old EKG, old radiological studies, urgent care reports/EKG's, halfway records)? Report findings @ -Old charts reviewed Differential Diagnosis (chest pain, altered mental status, abdominal pain women, abdominal pain men, vaginal bleeding, weakness, fever, dyspnea, syncope, headache, dizziness, GI bleed, back pain, seizure, CVA, palpatations, mental health, musculoskeletal)? @ -Dehydration, UTI, new onset A-fib with RVR, ACS, PE, this list is not all inclusive. EKG interpreted by me (3pts min.). @ -As above X-rays interpreted by me (1pt min.). @ -Chest x-ray reveals no obvious acute cardiopulmonary process CT interpreted by me (1pt min.). @ -CT chest PE negative for pulmonary embolism or acute infiltrate. CT abdomen pelvis shows no obvious acute intra-abdominal process. U/S interpreted by me (1pt. min.). @ -None done What testing was considered but not performed or refused? (CT, X-rays, U/S, labs)? Why? @ -None What meds were considered but not given or refused? Why? @ -None Did you discuss the management of the patient with other professionals (professionals i.e. STEPHANY Rodriguez, SECURITY STRATEGIST, lab, RT, psych nurse, social work professor, clerk of scales, teacher, deputy juvenile officer, immigration case worker)? Give summary @ -Patient's PCP, Dr. Gonsales is being covered by [facility]. I spoke with DENIA Hay of [facility] who accepted the admission. Was smoking cessation discussed for >3mins.? @ -No Was critical care preformed (if so, how long)? @ -Yes, 36 minutes. Were there social determinants of health that impacted care today? How? (Homelessness, low income, unemployed, alcoholism, drug addiction, transportation, low edu. Level, literacy, decrease access to med. care, shelter, rehab)? @ -No Was there de-escalation of care discussed even if they declined (Discuss DNR or withdrawal of care, Hospice)? DNR status @ -No What co-morbidities impacted this encounter? (DM, HTN, Smoking, COPD, CAD, Cancer, CVA, ARF, Chemo, Hep., AIDS, mental health diagnosis, sleep apnea, morbid obesity)? @ -None Was patient admitted / discharged? Hospital course, mention meds given and route, prescriptions, significant lab abnormalities, going to OR and other pertinent info. @ -Based on the patient's presentation and physical exam, presents emergency department with what appears to be new onset A-fib with RVR and dehydrated with poor oral intake and concern for continued UTI. Was seen multiple times this week for similar complaints except of A-fib with RVR. Vital signs otherwise are within acceptable limits. We will obtain general workup. We would some fluid hydration to treat A-fib with RVR as this is new as it could be related to infection. Patient was in agreement this plan. She was also post be on nightly metoprolol which was administered. She was given IV Protonix, Zofran, Dilaudid as well as a 2 L fluid bolus. EKG shows findings concerning for A-fib with RVR. Laboratory studies remarkable for positive acetone but no evidence of DKA at this time. Patient's blood sugar is within normal limits. Negative for flu, COVID, RSV. Patient's D-dimer was added on and is elevated at 2.15.Patient has an elevated troponin of 0.662. BNP is elevated at 4380. No evidence of UTI. Discussed the results with the patient. Elevated troponin as well as BNP likely secondary to the A-fib with RVR which I suspect has been ongoing since previous visit as there was documented evidence of tachycardia near time of discharge. No EKG was done. However due to the elevated D-dimer I did recommend CT PE we will obtain CT abdomen pelvis as well. Patient was in agreement this plan. CT PE negative for PE or infiltrate. CT abdomen pelvis negative for any obvious acute process. Chest x-ray was obtained and showed no obvious acute process, possible left lower infiltrate however patient has no upper respiratory symptoms at this time. On reevaluation, despite oral metoprolol well as IV fluids, patient remains in A-fib with RVR. Will start a Cardizem drip at this time as well as heparin drip for NSTEMI and A-fib. Patient was in agreement this plan. Second IV will be obtained. Patient will be admitted at this time. She was in agreement this plan. Cardiology consulted. Echo ordered. Will trend troponin. She was given 324 mg of aspirin. Patient's PCP, Dr. Gonsales is being covered by [facility]. I spoke with DENIA Hay of [facility] who accepted the admission. Undiagnosed new problem with uncertain prognosis? @ -No Drug Therapy requiring intensive monitoring for toxicity (Heparin, Nitro, Insulin, Cardizem)? @ -Heparin, Cardizem Were any procedures done? @ -No Diagnosis/symptom? @ -Intractable nausea vomiting, NSTEMI, new onset A-fib with RVR Acute, or Chronic, or Acute on Chronic? @ -Acute Uncomplicated (without systemic symptoms) or Complicated (systemic symptoms)? @ -Complicated Side effects of treatment? @ -None Exacerbation, Progression, or Severe Exacerbation] @ -No Poses a threat to life or bodily function? @ -Yes - Lab Data Result diagrams: 09/22/23 20:29 09/22/23 20:29 Lab Results 09/22/23 09/22/23 09/22/23 Range/Units 20:29 20:29 20:29 WBC 6.5 (3.8-10.6) k/uL RBC 4.31 (3.80-5.40) m/uL Hgb 11.7 (11.4-16.0) gm/dL Hct 36.8 (34.0-46.0) % MCV 85.3 D (80.0-100.0) fL MCH 27.1 (25.0-35.0) pg MCHC 31.8 (31.0-37.0) g/dL RDW 16.2 H (11.5-15.5) % Plt Count 276 (150-450) k/uL MPV 8.7 Neutrophils % 59 % Lymphocytes % 20 % Monocytes % 8 % Eosinophils % 11 % Basophils % 0 % Neutrophils # 3.8 (1.3-7.7) k/uL Lymphocytes # 1.3 (1.0-4.8) k/uL Monocytes # 0.5 (0-1.0) k/uL Eosinophils # 0.7 (0-0.7) k/uL Basophils # 0.0 (0-0.2) k/uL Hypochromasia Slight Anisocytosis Slight PT 11.1 (10.0-12.5) sec INR 1.0 (<1.2) APTT 22.2 (22.0-30.0) sec D-Dimer (<0.60) mg/L FEU Sodium 139 (137-145) mmol/L Potassium 4.1 (3.5-5.1) mmol/L Chloride 106 (98-107) mmol/L Carbon Dioxide 20 L (22-30) mmol/L Anion Gap 13 mmol/L BUN 15 (7-17) mg/dL Creatinine 1.01 (0.52-1.04) mg/dL Est GFR (CKD-EPI)AfAm 64 (>60 ml/min/1.73 sqM) Est GFR (CKD-EPI)NonAf 55 (>60 ml/min/1.73 sqM) Glucose 118 H (74-99) mg/dL Plasma Lactic Acid Sudhir (0.7-2.0) mmol/L Calcium 9.8 (8.4-10.2) mg/dL Magnesium 1.8 (1.6-2.3) mg/dL Total Bilirubin 0.4 (0.2-1.3) mg/dL AST 40 H (14-36) U/L ALT 20 (4-34) U/L Alkaline Phosphatase 93 (38-126) U/L Troponin I (0.000-0.034) ng/mL NT-Pro-B Natriuret Pep pg/mL Total Protein 5.5 L (6.3-8.2) g/dL Albumin 3.3 L (3.5-5.0) g/dL Urine Color Urine Appearance (Clear) Urine pH (5.0-8.0) Ur Specific [place] (1.001-1.035) Urine Protein (Negative) Urine Glucose (UA) (Negative) Urine Ketones (Negative) Urine Blood (Negative) Urine Nitrite (Negative) Urine Bilirubin (Negative) Urine Urobilinogen (<2.0) mg/dL Ur Leukocyte Esterase (Negative) Acetone, Qual Positive (Negative) Influenza Type A (PCR) (Not Detectd) Influenza Type B (PCR) (Not Detectd) RSV (PCR) (Not Detectd) SARS-CoV-2 (PCR) (Not Detectd) 09/22/23 09/22/23 09/22/23 Range/Units 20:29 20:29 20:29 WBC (3.8-10.6) k/uL RBC (3.80-5.40) m/uL Hgb (11.4-16.0) gm/dL Hct (34.0-46.0) % MCV (80.0-100.0) fL MCH (25.0-35.0) pg MCHC (31.0-37.0) g/dL RDW (11.5-15.5) % Plt Count (150-450) k/uL MPV Neutrophils % % Lymphocytes % % Monocytes % % Eosinophils % % Basophils % % Neutrophils # (1.3-7.7) k/uL Lymphocytes # (1.0-4.8) k/uL Monocytes # (0-1.0) k/uL Eosinophils # (0-0.7) k/uL Basophils # (0-0.2) k/uL Hypochromasia Anisocytosis PT (10.0-12.5) sec INR (<1.2) APTT (22.0-30.0) sec D-Dimer 2.15 H (<0.60) mg/L FEU Sodium (137-145) mmol/L Potassium (3.5-5.1) mmol/L Chloride (98-107) mmol/L Carbon Dioxide (22-30) mmol/L Anion Gap mmol/L BUN (7-17) mg/dL Creatinine (0.52-1.04) mg/dL Est GFR (CKD-EPI)AfAm (>60 ml/min/1.73 sqM) Est GFR (CKD-EPI)NonAf (>60 ml/min/1.73 sqM) Glucose (74-99) mg/dL Plasma Lactic Acid Sudhir 1.2 (0.7-2.0) mmol/L Calcium (8.4-10.2) mg/dL Magnesium (1.6-2.3) mg/dL Total Bilirubin (0.2-1.3) mg/dL AST (14-36) U/L ALT (4-34) U/L Alkaline Phosphatase (38-126) U/L Troponin I (0.000-0.034) ng/mL NT-Pro-B Natriuret Pep pg/mL Total Protein (6.3-8.2) g/dL Albumin (3.5-5.0) g/dL Urine Color Urine Appearance (Clear) Urine pH (5.0-8.0) Ur Specific [place] (1.001-1.035) Urine Protein (Negative) Urine Glucose (UA) (Negative) Urine Ketones (Negative) Urine Blood (Negative) Urine Nitrite (Negative) Urine Bilirubin (Negative) Urine Urobilinogen (<2.0) mg/dL Ur Leukocyte Esterase (Negative) Acetone, Qual (Negative) Influenza Type A (PCR) Not Detected (Not Detectd) Influenza Type B (PCR) Not Detected (Not Detectd) RSV (PCR) Not Detected (Not Detectd) SARS-CoV-2 (PCR) Not Detected (Not Detectd) 09/22/23 09/22/23 09/22/23 Range/Units 20:29 21:43 21:43 WBC (3.8-10.6) k/uL RBC (3.80-5.40) m/uL Hgb (11.4-16.0) gm/dL Hct (34.0-46.0) % MCV (80.0-100.0) fL MCH (25.0-35.0) pg MCHC (31.0-37.0) g/dL RDW (11.5-15.5) % Plt Count (150-450) k/uL MPV Neutrophils % % Lymphocytes % % Monocytes % % Eosinophils % % Basophils % % Neutrophils # (1.3-7.7) k/uL Lymphocytes # (1.0-4.8) k/uL Monocytes # (0-1.0) k/uL Eosinophils # (0-0.7) k/uL Basophils # (0-0.2) k/uL Hypochromasia Anisocytosis PT (10.0-12.5) sec INR (<1.2) APTT (22.0-30.0) sec D-Dimer (<0.60) mg/L FEU Sodium (137-145) mmol/L Potassium (3.5-5.1) mmol/L Chloride (98-107) mmol/L Carbon Dioxide (22-30) mmol/L Anion Gap mmol/L BUN (7-17) mg/dL Creatinine (0.52-1.04) mg/dL Est GFR (CKD-EPI)AfAm (>60 ml/min/1.73 sqM) Est GFR (CKD-EPI)NonAf (>60 ml/min/1.73 sqM) Glucose (74-99) mg/dL Plasma Lactic Acid Sudhir (0.7-2.0) mmol/L Calcium (8.4-10.2) mg/dL Magnesium (1.6-2.3) mg/dL Total Bilirubin (0.2-1.3) mg/dL AST (14-36) U/L ALT (4-34) U/L Alkaline Phosphatase (38-126) U/L Troponin I 0.662 H* (0.000-0.034) ng/mL NT-Pro-B Natriuret Pep 4380 pg/mL Total Protein (6.3-8.2) g/dL Albumin (3.5-5.0) g/dL Urine Color Light Yellow Urine Appearance Clear (Clear) Urine pH 6.0 (5.0-8.0) Ur Specific [place] 1.017 (1.001-1.035) Urine Protein Trace H (Negative) Urine Glucose (UA) Negative (Negative) Urine Ketones 2+ H (Negative) Urine Blood Negative (Negative) Urine Nitrite Negative (Negative) Urine Bilirubin 1+ H (Negative) Urine Urobilinogen <2.0 (<2.0) mg/dL Ur Leukocyte Esterase Negative (Negative) Acetone, Qual (Negative) Influenza Type A (PCR) (Not Detectd) Influenza Type B (PCR) (Not Detectd) RSV (PCR) (Not Detectd) SARS-CoV-2 (PCR) (Not Detectd) - EKG Data -: EKG Interpreted by Me EKG Comments: 12-lead Electrocardiogram Interpretation Note EKG was reviewed and interpreted by myself. 12-lead ECG performed at 1958 is interpreted by me as revealing A-fib with RVR at a rate of 129 beats per minute. [place] is normal. QRS duration is 82 ms, QTc is 378 ms.. There were no ST or T wave abnormalities to suggest myocardial ischemia or injury. R wave progression across the precordium was satisfactory. By my interpretation this EKG is non-diagnostic for acute ischemia. Critical Care Time Critical Care Time: Yes Total Critical Care Time: 36 Disposition Clinical Impression: Atrial fibrillation with RVR, NSTEMI (non-ST elevated myocardial infarction), Intractable nausea and vomiting Disposition: ADMITTED IP TO THIS HOSP Condition: Serious Referrals: Andrew Gonsales MD [Primary Care Provider] - 1-2 days Time of Disposition: 23:01
[2023-09-22 22:05] LABS: Appearance,Urine Clear (Clear); Bilirubin,Urine 1+ (Negative); Blood,Urine Negative (Negative); Color,Urine Light Yellow; Glucose,Urine (UA) Negative (Negative); Ketones,Urine 2+ (Negative); Leukocyte Esterase,Urine Negative (Negative); Nitrite,Urine Negative (Negative); Protein,Urine Trace (Negative); Specific Gravity,Urine 1.017 (1.001-1.035); Urobilinogen,Urine <2.0 mg/dL (<2.0)
--- NOTE | 2023-09-22 22:14 | XR ---
EXAMINATION TYPE: XR chest 2V DATE OF EXAM: 09/22/2023 8:55 PM CLINICAL INDICATION:Female, 73 years old with history of Weakness; [facility] COMPARISON: 04/27/2023 TECHNIQUE: XR chest 2V. Frontal and lateral views of the chest.. FINDINGS: Exam is limited by patient body habitus. Lines/Tubes/Devices: EKG leads overlie the chest. No indwelling lines are seen. Heart/mediastinum: Heart appears mildly enlarged. Mildly tortuous aorta. Overall appearance similar to previous. Pulmonary vascularity: Not increased, Lungs/Pleura: Mild chronic interstitial changes the lungs. No definite consolidation or pleural effus ion on the right. On the left, hazy opacification at the left lung base, could reflect combination of the enlarged heart and overlying soft tissues, with no significant blunting of the costophrenic angl e seen on the lateral view. No evidence of pneumothorax bilaterally. Musculoskeletal: No acute osseous abnormality demonstrated in the limits of the exam. Truncated poin grant appearance of the lateral end of the right clavicle is again seen, could be from prior trauma or surgery. ACF hardware is partially seen overlying the lower cervical spine. Other findings: None. IMPRESSION: * Hazy opacity over the left lung base, could be artifactual. * Mild cardiomegaly and chronic lung changes. No definite acute superimposed process. * Follow-up as clinically warranted.
--- NOTE | 2023-09-22 22:38 | CT ---
EXAMINATION TYPE: CT chest angio for PE DATE OF EXAM: 09/22/2023 COMPARISON: Prior CT chest November 18, 2018 HISTORY: Right flank pain x 3 weeks, elevated D dimer. Study A. fib. CT DLP: 1816.6 mGycm. Automated Exposure Control for Dose Reduction was Utilized. CONTRAST: CTA scan of the thorax is performed with IV Contrast, patient injected with 80ml mL of Isovue 370, . MIP Images are created on CT scanner and reviewed. 3D reconstructed images are created on an [employer] workstation and reviewed. FINDINGS: LUNGS: Some increased groundglass opacity and reticulation in the bilateral lower lungs is redemonstr ated favoring scarring and/or edema. No pleural effusion or pneumothorax seen bilaterally. MEDIASTINUM: There is satisfactory enhancement of the pulmonary artery and its branches, there is no CT evidence for pulmonary embolism. Prominent pulmonary arteries raise concern for underlying pulmona ry artery hypertension. Enhancement of the aorta without aneurysm or dissection. There are no greater than 1 cm hilar or mediastinal lymph nodes. Cardiomegaly redemonstrated. No pericardial effusion is seen. Somewhat small size thyroid gland. Coronary artery calcification redemonstrated. OTHER: Please refer to same day CT abdomen and pelvis report for complete details on the upper abdome n. Dystrophic calcifications in the right breast are redemonstrated. Scoliotic curvature is again see n. IMPRESSION: 1. No CT evidence for acute pulmonary embolism. 2. Cardiomegaly with mild bilateral lower lung edema and/or fibrosis redemonstrated. No new acute pul monary infiltrate seen.
--- NOTE | 2023-09-22 22:44 | CT ---
EXAMINATION TYPE: CT abdomen pelvis w con DATE OF EXAM: 09/22/2023 HISTORY: Right flank pain x 3 weeks, high dimer CT DLP: 1816.6mGycm Automated Exposure Control for Dose Reduction was Utilized. CONTRAST: CT scan of the abdomen and pelvis is performed with IV Contrast, patient injected with 80ml mL of Iso abiel 370. COMPARISON: Prior CT abdomen and pelvis April 24, 2023 FINDINGS: LUNG BASES: Please refer to same-day CT chest report for complete details on the lung bases. LIVER/GB: Liver is diffusely low dense suggesting fatty infiltration or hepatocellular disease. Lisa cystectomy clips are redemonstrated. PANCREAS: No significant abnormality is seen. SPLEEN: No significant abnormality is seen. ADRENALS: No significant abnormality is seen. KIDNEYS: A few thin-walled cysts scattered throughout both kidneys redemonstrated. Some cortical thin fina bilaterally is seen. Findings are consistent with product of chronic medical renal disease. Stab le 1 to 2 mm nonobstructing calculus upper pole left kidney coronal image 79. No hydronephrosis or ob structing ureteral calculi seen bilaterally. No intraluminal calculi in the bladder. BOWEL: Stomach poorly distended and suboptimally evaluated. No abnormal small or large bowel dilatati on. UTERUS/ADNEXA: Uterus is surgically absent or markedly atrophic. LYMPH NODES: No greater than 1cm abdominal or pelvic lymph nodes are appreciated. OSSEOUS STRUCTURES: Postsurgical change of lumbar spine redemonstrated. OTHER: Mild atherosclerotic plaque of the aorta extends into branch vessels. IMPRESSION: 1. No hydronephrosis or obstructing ureteral calculi bilaterally. No significant new or acute finding is seen to account for patient's clinical symptoms.
[2023-09-22] MEDS ORDERED: HEPARIN SODIUM 1,000 UN/ML (10ML VL) IV PRN (22:49)
[2023-09-22] MEDS ORDERED: NALOXONE 0.4 MG/ML 1 ML VIAL IV PRN (22:57)
[2023-09-22] MEDS ORDERED: DEXTROSE 50% SYRINGE 50 ML IVP PRN ×2 (23:03)
[2023-09-22] MEDS: DILTIAZEM 125 MG in SODIUM CHLORIDE 0.9% 100 ML IV SCH (23:45)
[2023-09-22] MEDS: HEPARIN SOD,PORK IN 0.45% NACL 25,000 UNIT in 0.45% NACL 1 250ML.BAG IV SCH (23:46)
[2023-09-22] MEDS: HEPARIN SODIUM 1,000 UN/ML (10ML VL) IV ONE (23:49)
[2023-09-22] MEDS: ASPIRIN 81 MG PO STA (23:50)
[2023-09-23] MEDS: SODIUM CHLORIDE 0.9% 1,000 ML IV SCH (00:56)
[2023-09-23] MEDS: HYDROmorphone 0.5 MG/0.5 ML SYRINGE IVP PRN (02:06)
[2023-09-23] MEDS: ONDANSETRON 4 MG/2 ML VIAL IVP PRN (05:53)
[2023-09-23 07:04] LABS: Glucose,Whole Blood 135 mg/dL (70-110)
[2023-09-23] MEDS: INSULIN ASPART (NovoLOG) 100 UNIT/ML VIAL SQ SCH ×2 (07:04→17:09)
[2023-09-23] MEDS: PANTOPRAZOLE 40 MG/10 ML VIAL IV SCH (08:24)
[2023-09-23] MEDS: HYDROCORTISONE 10 MG TAB PO SCH ×2 (08:24→11:44)
[2023-09-23 09:06] LABS: Anisocytosis Slight; Basophils % (A) 1 %; Eosinophils # (A) 0.8 k/uL (0-0.7); Eosinophils % (A) 13 %; HCT 37.9 % (34.0-46.0); HGB 10.9 gm/dL (11.4-16.0); Hypochromasia Marked; Lymphocytes # (A) 1.6 k/uL (1.0-4.8); Lymphocytes % (A) 26 %; MCH 26.9 pg (25.0-35.0); MCHC 28.8 g/dL (31.0-37.0); Mean Platelet Volume 9.2; Monocytes # (A) 0.5 k/uL (0-1.0); Monocytes % (A) 8 %; Neutrophils # (A) 2.9 k/uL (1.3-7.7); Neutrophils % (A) 49 %; Platelet Count 270 k/uL (150-450); RBC 4.06 m/uL (3.80-5.40); RDW 16.2 % (11.5-15.5); WBC 5.9 k/uL (3.8-10.6)
[2023-09-23 09:24] LABS: MCV 93.3 fL (80.0-100.0)
[2023-09-23] MEDS: APIXABAN 5 MG TAB PO SCH (09:47)
[2023-09-23] MEDS: METOPROLOL TARTRATE 25 MG TAB PO SCH (09:56)
[2023-09-23 10:00] LABS: Potassium 5.3 mmol/L (3.5-5.1)
[2023-09-23 10:01] LABS: African American GFR (CKD) 66 (>60 ml/min/1.73 sqM); Anion Gap 14 mmol/L; Blood Urea Nitrogen 17 mg/dL (7-17); Carbon Dioxide 14 mmol/L (22-30); Chloride 112 mmol/L (98-107); Glucose 118 mg/dL (74-99); Non-African American GFR(CKD) 57 (>60 ml/min/1.73 sqM); Sodium 140 mmol/L (137-145)
--- NOTE | 2023-09-23 10:20 | P.CRDCN ---
History of Present Illness History of present illness: HISTORY OF PRESENT ILLNESS: This is a 73-year-old female with a past medical history significant for coronary artery disease, hypertension, hyperlipidemia, diabetes, obstructive sleep apnea, history of adrenal insufficiency, and valvular heart disease and thoracic aortic aneurysm. Patient follows in the office with Dr. Rosenberg. We have been asked to see the patient in consultation for new onset A-fib. Patient examined at the bedside. Patient states over the past week she has been dealing with episodes of nausea. She states that she has not been eating much for the past week. She states that she has been drinking although she feels like she is dehydrated. She denied having any chest pain or pressure. Denied any shortness of breath. She does report having palpitations. Patient presented to the hospital for further evaluation. Patient was found to be in A-fib with RVR. Sh e denies a history of atrial fibrillation. She remains in atrial fibrillation this morning with a heart rate around 105. DIAGNOSTICS: - EKG reveals A-fib with RVR. - Chest xray hazy opacity over the left lung base could be artifactual. Mild cardiomegaly and chronic lung changes. -Chest CTA: Negative for pulmonary embolism. Cardiomegaly and mild bilateral lower lung edema and/or fibrosis redemonstrated. No new acute pulmonary filtrates seen. - Laboratory data: WBC 5.9. Hemoglobin 10.9. Platelet count 270. D-dimer 2.15. Sodium 140. Potassium 5.3. BUN 17. Creatinine 0.98. Troponin 0.662. 0.585. 0.481. proBNP 4380. - Current home cardiac medications include: Medication list not updated at the time of dictation - Most recent echocardiogram obtained in August 2022 reveals ejection fraction 60%, moderate MR, trace AR, mild TR. - Cardiac catheterization history: 2019 revealing intermediate disease involving the proximal LAD with about 60% with aneurysmal formation REVIEW OF SYSTEMS: At the time of my exam: CONSTITUTIONAL: Denies fever or chills. HEENT: Denies blurred vision, vision changes, or eye pain. Denies hemoptysis CARDIOVASCULAR: Denies chest pain. Denies orthopnea. Denies PND. Denies palpitations RESPIRATORY: Denies shortness of breath. GASTROINTESTINAL: Denies abdominal pain. Denies nausea or vomiting. HEMATOLOGIC: Denies bleeding disorders. GENITOURINARY: Denies any blood in urine. SKIN: Denies pruitis. Denies rash. PHYSICAL EXAM: VITAL SIGNS: Reviewed. GENERAL: Well-developed in no acute distress. HEENT: Head is normocephalic. Pupils are equal, round. Sclerae anicteric. Mucous membranes of the mouth are moist. Neck supple. No JVD or thyromegaly LUNGS: Respirations even and unlabored. Lungs essentially clear to auscultation bilaterally. HEART: Mildly tachycardic. Irregular rate and rhythm. S1 and S2 heard. Systolic murmur noted. ABDOMEN: Soft. Nondistended. Nontender. EXTREMITIES: Normal range of motion. No clubbing or cyanosis. Peripheral pulses intact. No lower extremity edema NEUROLOGIC: Awake and alert. Oriented x 3. ASSESSMENT: Nausea with decreased oral intake x 1 week New onset atrial fibrillation with RVR Elevated troponins, likely type II TN secondary to A-fib with RVR Coronary artery disease Peripheral vascular disease Valvular heart disease Hypertension Hyperlipidemia Diabetes Obstructive sleep apnea History of adrenal insufficiency History of thoracic aortic aneurysm PLAN: Obtain 2D echo to assess cardiac structure and function Check TSH Begin Eliquis 5 mg twice a day Begin metoprolol tartrate 25 mg twice daily Continue telemetry monitoring Further recommendations pending patient course Nurse practitioner note has been reviewed by physician. Signing provider agrees with the documented findings, assessment, and plan of care documented by UNDERCOVER COP as a scribe. Past Medical History Past Medical History: Diabetes Mellitus, Deep Vein Thrombosis (DVT), Fibromyalgia, Hyperlipidemia, Hypertension, Osteoarthritis (OA), Pneumonia, Renal Disease, Sleep Apnea/CPAP/BIPAP, Vascular Disorder Additional Past Medical History / Comment(s): Pt recently admitted to [facility] with R flank pain and UTI 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, DVT R calf in 1976, cardiac murmur, occipital neuraligia, balance issues-has narrowing of vessels "in the back of my head", vertigo, varicosities, states rt shoulder torn rotator cuff History of Any Multi-Drug Resistant Organisms: ESBL, MRSA, VRE Date of last positivie culture/infection: 11/25/20 ESBL;12/06/19 VRE; 03/10/11 MRSA MDRO Source:: Urine ESBL; Urine-VRE: MRSA 4th Right TOE Past Surgical History: Appendectomy, Back Surgery, Bladder Surgery, Breast Surgery, Cholecystectomy, Heart Catheterization, Hysterectomy, Orthopedic Surgery, Tonsillectomy Additional Past Surgical History / Comment(s): Lumbar fusions, bladder suspension, occipital nerve blocks, 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, R wrist/elbow nerve repair, bone removed R shoulder, 4th toe R foot partial amputation, bilateral feet/bunionectomies, R knee arthroscopies, R orbit decompression with ethmoidectomy and eyelid lift, EGD, colonoscopies, cystocopies, lithotripsy/stents, bilateral breast reduction, bilateral cataract removals, parathyroid surgery - April 2019, pain clinic procedures Past Anesthesia/Blood Transfusion Reactions: No Reported Reaction Additional Past Anesthesia/Blood Transfusion Reaction / Comment(s): never recieved blood Past Psychological History: Depression Additional Psychological History / Comment(s): Pt resides with her spouse. She uses a walker. She normally drives. She has a nebulizer, cpap, bsc, shower chair, bp machine, dexcom monitor system for her BG and insulin pump. Smoking Status: Never smoker Past Alcohol Use History: Occasional Additional Past Alcohol Use History / Comment(s): no alcohol Past Drug Use History: None Reported - Past Family History Father Family Medical History: Coronary Artery Disease (CAD), CVA/TIA, Diabetes Mellitus, Myocardial Infarction (TN), Pneumonia Additional Family Medical History / Comment(s): Father at the age of 78yrs from TN and pneumonia. Mother Family Medical History: Cancer, Congestive Heart Failure (CHF) Additional Family Medical History / Comment(s): Mother had uterine cancer. She recently at the age of 96yrs old from shingles. Medications and Allergies Home Medications Medication Instructions Recorded Confirmed Type Meclizine [Antivert] 25 mg PO QID PRN 11/26/17 09/20/23 History Aspirin 81 mg PO DAILY #0 07/02/18 09/20/23 Rx Ferrous Sulfate [Iron (65 MG 325 mg PO HS 10/08/18 09/20/23 History Elemental)] L.acidoph,Paracasei, B.lactis 2 cap PO DAILY 10/08/18 09/20/23 History [Probiotic] Melatonin 5 mg PO HS PRN 10/08/18 09/20/23 History Potassium 99 mg PO HS 10/08/18 09/20/23 History Thiamine [Vitamin B-1] 100 mg PO HS 10/08/18 09/20/23 History Vitamin B-Complex Drops 1 drop PO BID 10/08/18 09/20/23 History C,E,Zinc,Copper 11/Icvjv4c/Lut 1 cap PO HS 06/25/20 09/20/23 History [Ocuvite Adult 50 Plus Softgel] Spironolactone 50 mg PO DAILY 06/25/20 09/20/23 History Brimonidine Tartrate [Alphagan P 1 drop RIGHT EYE BID 11/26/20 09/20/23 History 0.2% Ophth Soln] Glucagon [Gvoke Pfs 1-Pack Syringe] 1 mg SQ ONCE PRN 11/26/20 09/20/23 History Pantoprazole Sodium [Protonix] 40 mg PO HS 11/26/20 09/20/23 History Insulin Aspart (For Pump) [NovoLOG 0.01 unit SQ-PUMP CONTINUOUS 03/03/21 09/20/23 History (For Pump)] Rosuvastatin Calcium [Crestor] 5 mg PO HS 08/15/21 09/20/23 History Cranberry Fruit Extract [Cranberry] 500 mg PO BID 05/25/22 09/20/23 History Dorzolamide 2% [Trusopt 2%] 1 drop RIGHT EYE BID 05/25/22 09/20/23 History Multivit-Min/Folic Acid/Lcs219 1 tab PO DAILY 05/25/22 09/20/23 History [Alive Premium Adult Multivit] hydroCHLOROthiazide [Hydrodiuril] 25 mg PO DAILY 05/25/22 09/20/23 History lisinopriL [Zestril] 30 mg PO DAILY 07/17/22 09/20/23 History Cephalexin [Keflex] 250 mg PO HS 09/04/22 09/20/23 History Butalb/APAP/Caff 50-325-40Mg 1 tab PO Q6H PRN #12 tab 09/06/22 09/20/23 Rx [Fioricet 50-325-40] Dhea 50mg With B-12 2500mcg 1 tab PO HS 04/27/23 09/20/23 History Folic Acid 800mcg With Folate 1 tab PO HS 04/27/23 09/20/23 History 1333mg Gabapentin [Neurontin] 300 mg PO TID 04/27/23 09/20/23 History HYDROcodone/APAP 10-325MG [[place] 1 tab PO Q6H PRN 04/27/23 09/20/23 History 10-325] Hydrocortisone [Cortef] 15 mg PO QAM 04/27/23 09/20/23 History Insulin Aspart [NovoLOG Flexpen] See Protocol SQ ACHS PRN 04/27/23 09/20/23 History Metoprolol Succinate (ER) [Toprol 100 mg PO HS 04/27/23 09/20/23 History XL] Ondansetron [Zofran] 4 mg PO Q6H PRN 04/27/23 09/20/23 History Turmeric Root Extract [Turmeric] 500 mg PO HS 04/27/23 09/20/23 History Hydrocortisone [Cortef] 10 mg PO BID@1200,2000 09/20/23 09/20/23 History Magnesium Oxide [Mag-Ox] 400 mg PO BID 09/20/23 09/20/23 History Nystatin 100,000Unit/gm Cream 1 applic TOPICAL DIRECTED PRN 09/20/23 09/20/23 History [Mycostatin Cream] Promethazine [Phenergan] 25 mg PO QID PRN 09/20/23 09/20/23 History buPROPion XL [Wellbutrin XL] 300 mg PO DAILY 09/20/23 09/20/23 History busPIRone HCl [Buspar] 10 mg PO TID 09/20/23 09/20/23 History Allergies Allergy/AdvReac Type Severity Reaction Status Date / Time butorphanol tartrate Allergy BLISTERS Verified 09/22/23 19:27 [From Stadol] IN MOUTH ceftriaxone [From Rocephin] Allergy Rash/Hives Verified 09/22/23 19:27 clarithromycin [From Biaxin] Allergy Rash/Hives Verified 09/22/23 19:27 clindamycin Allergy Rash/Hives Verified 09/22/23 19:27 codeine Allergy Rash/Hives Verified 09/22/23 19:27 ergotamine tartrate Allergy Rash/Hives Verified 09/22/23 19:27 [From Cafergot] erythromycin base Allergy RASH, GI Verified 09/22/23 19:27 [From E-Mycin] SYMPTOMS ketorolac tromethamine Allergy Rash/Hives Verified 09/22/23 19:27 [From Toradol] liraglutide [From Victoza] Allergy Rash/Hives Verified 09/22/23 19:27 morphine Allergy Rash/Hives Verified 09/22/23 19:27 Penicillins Allergy Rash/Hives Verified 09/22/23 19:27 on upper body pentazocine lactate Allergy SEVERE Verified 09/22/23 19:27 [From Talwin] BLISTERS IN MOUTH pregabalin [From Lyrica] Allergy Rash/Hives Verified 09/22/23 19:27 propoxyphene HCl Allergy Rash/Hives Verified 09/22/23 19:27 [From Darvon] Sulfa (Sulfonamide Allergy Rash/Hives Verified 09/22/23 19:27 Antibiotics) sulfamethoxazole Allergy Rash/Hives Verified 09/22/23 19:27 [From Bactrim] tizanidine Allergy Unknown Verified 09/22/23 19:27 tramadol Allergy Unknown Verified 09/22/23 19:27 trimethoprim [From Bactrim] Allergy Rash/Hives Verified 09/22/23 19:27 vancomycin Allergy lip Verified 09/22/23 19:27 swelling metoclopramide [From Reglan] AdvReac Hallucinati Verified 09/22/23 19:27 ons monosodium glutamate [MSG] AdvReac Nausea & Verified 09/22/23 19:27 Vomiting nalbuphine HCl [From Nubain] AdvReac Nausea & Verified 09/22/23 19:27 Vomiting Physical Exam Vitals: Vital Signs Temp Pulse Pulse Resp BP BP Pulse Ox 09/23/23 08:20 18 09/23/23 08:19 98.3 F 100 18 95/60 95 09/23/23 04:00 97 18 88/53 95 09/23/23 02:26 97.8 F 101 H 82/46 96 09/23/23 01:40 105 H 18 103/51 95 09/23/23 01:20 99 18 89/56 95 09/23/23 01:00 105 H 18 102/62 94 L 09/23/23 00:32 107 H 20 109/82 97 09/22/23 21:00 121 H 20 102/71 95 09/22/23 20:27 134 H 20 109/74 100 09/22/23 19:22 97.9 F 117 H 20 118/76 98 Intake and Output 09/22/23 09/23/23 09/23/23 22:59 06:59 14:59 Output Total 450 Balance -450 Output: Urine 450 Straight 450 Other: Voiding Method Diaper Diaper Incontinent Incontinent External Catheter External Catheter Weight 65.771 kg 65.771 kg Results 09/23/23 07:42 09/23/23 07:42 Cardiac Enzymes 09/22/23 09/22/23 09/23/23 Range/Units 20:29 21:43 01:09 AST 40 H (14-36) U/L Troponin I 0.662 H* 0.585 H* (0.000-0.034) ng/mL 09/23/23 Range/Units 07:42 AST (14-36) U/L Troponin I 0.481 H* (0.000-0.034) ng/mL Coagulation 09/22/23 09/23/23 Range/Units 20:29 07:42 PT 11.1 11.0 (10.0-12.5) sec APTT 22.2 23.0 (22.0-30.0) sec CBC 09/22/23 09/23/23 Range/Units 20:29 07:42 WBC 6.5 5.9 (3.8-10.6) k/uL RBC 4.31 4.06 (3.80-5.40) m/uL Hgb 11.7 10.9 L (11.4-16.0) gm/dL Hct 36.8 37.9 (34.0-46.0) % Plt Count 276 270 (150-450) k/uL Comprehensive Metabolic Panel 09/22/23 09/23/23 Range/Units 20:29 07:42 Sodium 139 140 (137-145) mmol/L Potassium 4.1 5.3 H (3.5-5.1) mmol/L Chloride 106 112 H (98-107) mmol/L Carbon Dioxide 20 L 14 L (22-30) mmol/L BUN 15 17 (7-17) mg/dL Creatinine 1.01 0.98 (0.52-1.04) mg/dL Glucose 118 H 118 H (74-99) mg/dL Calcium 9.8 9.0 (8.4-10.2) mg/dL AST 40 H (14-36) U/L ALT 20 (4-34) U/L Alkaline Phosphatase 93 (38-126) U/L Total Protein 5.5 L (6.3-8.2) g/dL Albumin 3.3 L (3.5-5.0) g/dL Current Medications Generic Name Dose Route Start Last Admin Trade Name Freq PRN Reason Stop Dose Admin Acetaminophen 650 mg 09/22/23 22:57 Acetaminophen Tab 325 Mg Tab PO Q6HR PRN Mild Pain or Fever > 100.5 Apixaban 5 mg 09/23/23 09:00 09/23/23 09:47 Apixaban 5 Mg Tab PO 5 mg BID KIARA Administration Protocol Dextrose/Water 25 ml 09/22/23 23:03 Dextrose 50% Syringe 50 Ml IVP PER PROTOCOL PRN Hypoglycemia Protocol Dextrose/Water 50 ml 09/22/23 23:03 Dextrose 50% Syringe 50 Ml IVP PER PROTOCOL PRN Hypoglycemia Protocol Hydrocortisone 10 mg 09/23/23 12:00 Hydrocortisone 10 Mg Tab PO BID@1200,2000 KIARA Hydrocortisone 15 mg 09/23/23 09:00 09/23/23 08:24 Hydrocortisone 10 Mg Tab PO 15 mg QAM KIARA Administration Hydromorphone HCl 0.5 mg 09/22/23 22:57 09/23/23 09:45 Hydromorphone 0.5 Mg/0.5 Ml Syringe IVP 0.5 mg Q3HR PRN Administration Moderate Pain (Scale 4 to 6) Sodium Chloride 1,000 mls @ 75 mls/hr 09/22/23 23:00 09/23/23 00:56 Saline 0.9% IV 75 mls/hr .[id number] KIARA Administration Insulin Aspart 0 unit 09/23/23 07:30 09/23/23 07:04 Insulin Aspart (Novolog) 100 Unit/Ml Vial SQ Not Given AC-TID KIARA Protocol Metoprolol Tartrate 25 mg 09/23/23 09:00 09/23/23 09:56 Metoprolol Tartrate 25 Mg Tab PO 25 mg BID KIARA Administration Naloxone HCl 0.2 mg 09/22/23 22:57 Naloxone 0.4 Mg/Ml 1 Ml Vial IV Q2M PRN Opioid Reversal Ondansetron HCl 4 mg 09/22/23 22:57 09/23/23 05:53 Ondansetron 4 Mg/2 Ml Vial IVP 4 mg Q8HR PRN Administration Nausea And Vomiting Pantoprazole Sodium 40 mg 09/23/23 09:00 09/23/23 08:24 Pantoprazole 40 Mg/10 Ml Vial IV 40 mg DAILY KIARA Administration Intake and Output 09/22/23 09/23/23 09/23/23 22:59 06:59 14:59 Output Total 450 Balance -450 Output: Urine 450 Straight 450 Other: Voiding Method Diaper Diaper Incontinent Incontinent External Catheter External Catheter Weight 65.771 kg 65.771 kg 09/23/23 07:42 09/23/23 07:42
[2023-09-23] MEDS ORDERED: polyethylene glycoL 3350 17 GM POWD.PACK PO PRN (11:03)
--- NOTE | 2023-09-23 11:11 | P.HPIM ---
History of Present Illness Patient is a 73-year-old female with history of coronary disease, adrenal insufficiency valvular heart disease came in with the complaints of nausea vomiting diarrhea patient is found to be in atrial fibrillation was on Cardizem drip which was subsequently discontinued and patient is on presently on metoprolol patient is hypotensive because of Cardizem. Patient does have palpitations on admission which resolved at this time patient heart rate is fairly controlled at this time. Patient has an elevated BNP of 4000 and chest CTs negative for pulmonary embolism there is suspicion of pulmonary fibrosis versus pulmonary edema although patient does not have any peripheral edema and laying flat on the bed patient is presently receiving IV fluids for hypotension CT of the abdomen did not show any significant abnormality patient probably has viral gastroenteritis or gastritis. Her nausea vomiting improved at this time. Patient also has chronic pain for which patient is on [place] at home 10 mg. REVIEW OF SYSTEMS: CONSTITUTIONAL: No fever, no malaise, no fatigue. HEENT: No recent visual problems or hearing problems. Denied any sore throat. CARDIOVASCULAR: No chest pain, orthopnea, PND no syncope. PULMONARY: No shortness of breath, no cough, no hemoptysis. GASTROINTESTINAL: As mentioned in HPI NEUROLOGICAL: No headaches, no weakness, no numbness. HEMATOLOGICAL: Denies any bleeding or petechiae. GENITOURINARY: Denies any burning micturition, frequency, or urgency. MUSCULOSKELETAL/RHEUMATOLOGICAL: Denies any joint pain, swelling, or any muscle pain. ENDOCRINE: Denies any polyuria or polydipsia. The rest of the 14-point review of systems is negative. PHYSICAL EXAMINATION: GENERAL: The patient is alert and oriented x3, not in any acute distress. Well developed, well nourished. HEENT: Pupils are round and equally reacting to light. EOMI. No scleral icterus. No conjunctival pallor. Normocephalic, atraumatic. No pharyngeal erythema. No thyromegaly. CARDIOVASCULAR: S1 and S2 present. No murmurs, rubs, or gallops. PULMONARY: Chest is clear to auscultation, no wheezing or crackles. ABDOMEN: Soft, nontender, nondistended, normoactive bowel sounds. No palpable organomegaly. MUSCULOSKELETAL: No joint swelling or deformity. EXTREMITIES: No cyanosis, clubbing, or pedal edema. NEUROLOGICAL: Gross neurological examination did not reveal any focal deficits. SKIN: No rashes. Assessment and plan -Nausea along with abdominal discomfort which resolved at this time secondary to gastritis or gastroenteritis patient is on Protonix which will be continued -New onset atrial fibrillation with rapid ventricular rate, patient is presently fairly rate controlled, is on metoprolol and anticoagulation with Eliquis IV heparin was discontinued -Elevated troponins, secondary to atrial fibrillation with rapid close rate -Valvular heart disease -Peripheral artery disease -Hypertension patient is hypotensive at this time medications still need to be verified once medications are verified dose will be ordered -Hypertension -Type 2 diabetes mellitus -Obstructive sleep apnea -Adrenal insufficiency on hydrocortisone which is being continued -History of DVT in the past -Chronic pain For above-mentioned mention chronic medical problems patient will be resumed on appropriate home medications once these are verified DVT prophylaxis:Patient is on anticoagulation at this time Past Medical History Past Medical History: Diabetes Mellitus, Deep Vein Thrombosis (DVT), Fibromyalgia, Hyperlipidemia, Hypertension, Osteoarthritis (OA), Pneumonia, Renal Disease, Sleep Apnea/CPAP/BIPAP, Vascular Disorder Additional Past Medical History / Comment(s): Pt recently admitted to [facility] with R flank pain and UTI 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, DVT R calf in 1976, cardiac murmur, occipital neuraligia, balance issues-has narrowing of vessels "in the back of my head", vertigo, varicosities, states rt shoulder torn rotator cuff History of Any Multi-Drug Resistant Organisms: ESBL, MRSA, VRE Date of last positivie culture/infection: 11/25/20 ESBL;12/06/19 VRE; 03/10/11 MRSA MDRO Source:: Urine ESBL; Urine-VRE: MRSA 4th Right TOE Past Surgical History: Appendectomy, Back Surgery, Bladder Surgery, Breast Surgery, Cholecystectomy, Heart Catheterization, Hysterectomy, Orthopedic Surgery, Tonsillectomy Additional Past Surgical History / Comment(s): Lumbar fusions, bladder susp ension, occipital nerve blocks, 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, R wrist/elbow nerve repair, bone removed R shoulder, 4th toe R foot partial amputation, bilateral feet/bunionectomies, R knee arthroscopies, R orbit decompression with ethmoidectomy and eyelid lift, EGD, colonoscopies, cystocopie s, lithotripsy/stents, bilateral breast reduction, bilateral cataract removals, parathyroid surgery - April 2019, pain clinic procedures Past Anesthesia/Blood Transfusion Reactions: No Reported Reaction Additional Past Anesthesia/Blood Transfusion Reaction / Comment(s): never recieved blood Past Psychological History: Depression Additional Psychological History / Comment(s): Pt resides with her spouse. She uses a walker. She normally drives. She has a nebulizer, cpap, bsc, shower chair, bp machine, dexcom monitor system for her BG and insulin pump. Smoking Status: Never smoker Past Alcohol Use History: Occasional Additional Past Alcohol Use History / Comment(s): no alcohol Past Drug Use History: None Reported - Past Family History Father Family Medical History: Coronary Artery Disease (CAD), CVA/TIA, Diabetes Mellitus, Myocardial Infarction (DE), Pneumonia Additional Family Medical History / Comment(s): Father at the age of 78yrs from DE and pneumonia. Mother Family Medical History: Cancer, Congestive Heart Failure (CHF) Additional Family Medical History / Comment(s): Mother had uterine cancer. She recently at the age of 96yrs old from shingles. Medications and Allergies Home Medications Medication Instructions Recorded Confirmed Type Meclizine [Antivert] 25 mg PO QID PRN 11/26/17 09/20/23 History Aspirin 81 mg PO DAILY #0 07/02/18 09/20/23 Rx Ferrous Sulfate [Iron (65 MG 325 mg PO HS 10/08/18 09/20/23 History Elemental)] L.acidoph,Paracasei, B.lactis 2 cap PO DAILY 10/08/18 09/20/23 History [Probiotic] Melatonin 5 mg PO HS PRN 10/08/18 09/20/23 History Potassium 99 mg PO HS 10/08/18 09/20/23 History Thiamine [Vitamin B-1] 100 mg PO HS 10/08/18 09/20/23 History Vitamin B-Complex Drops 1 drop PO BID 10/08/18 09/20/23 History C,E,Zinc,Copper 11/Wolua4h/Lut 1 cap PO HS 06/25/20 09/20/23 History [Ocuvite Adult 50 Plus Softgel] Spironolactone 50 mg PO DAILY 06/25/20 09/20/23 History Brimonidine Tartrate [Alphagan P 1 drop RIGHT EYE BID 11/26/20 09/20/23 History 0.2% Ophth Soln] Glucagon [Gvoke Pfs 1-Pack Syringe] 1 mg SQ ONCE PRN 11/26/20 09/20/23 History Pantoprazole Sodium [Protonix] 40 mg PO HS 11/26/20 09/20/23 History Insulin Aspart (For Pump) [NovoLOG 0.01 unit SQ-PUMP CONTINUOUS 03/03/21 09/20/23 History (For Pump)] Rosuvastatin Calcium [Crestor] 5 mg PO HS 08/15/21 09/20/23 History Cranberry Fruit Extract [Cranberry] 500 mg PO BID 05/25/22 09/20/23 History Dorzolamide 2% [Trusopt 2%] 1 drop RIGHT EYE BID 05/25/22 09/20/23 History Multivit-Min/Folic Acid/[id number] 1 tab PO DAILY 05/25/22 09/20/23 History [Alive Premium Adult Multivit] hydroCHLOROthiazide [Hydrodiuril] 25 mg PO DAILY 05/25/22 09/20/23 History lisinopriL [Zestril] 30 mg PO DAILY 07/17/22 09/20/23 History Cephalexin [Keflex] 250 mg PO HS 09/04/22 09/20/23 History Butalb/APAP/Caff 50-325-40Mg 1 tab PO Q6H PRN #12 tab 09/06/22 09/20/23 Rx [Fioricet 50-325-40] Dhea 50mg With B-12 2500mcg 1 tab PO HS 04/27/23 09/20/23 History Folic Acid 800mcg With Folate 1 tab PO HS 04/27/23 09/20/23 History 1333mg Gabapentin [Neurontin] 300 mg PO TID 04/27/23 09/20/23 History HYDROcodone/APAP 10-325MG [[place] 1 tab PO Q6H PRN 04/27/23 09/20/23 History 10-325] Hydrocortisone [Cortef] 15 mg PO QAM 04/27/23 09/20/23 History Insulin Aspart [NovoLOG Flexpen] See Protocol SQ ACHS PRN 04/27/23 09/20/23 History Metoprolol Succinate (ER) [Toprol 100 mg PO HS 04/27/23 09/20/23 History XL] Ondansetron [Zofran] 4 mg PO Q6H PRN 04/27/23 09/20/23 History Turmeric Root Extract [Turmeric] 500 mg PO HS 04/27/23 09/20/23 History Hydrocortisone [Cortef] 10 mg PO BID@1200,2000 09/20/23 09/20/23 History Magnesium Oxide [Mag-Ox] 400 mg PO BID 09/20/23 09/20/23 History Nystatin 100,000Unit/gm Cream 1 applic TOPICAL DIRECTED PRN 09/20/23 09/20/23 History [Mycostatin Cream] Promethazine [Phenergan] 25 mg PO QID PRN 09/20/23 09/20/23 History buPROPion XL [Wellbutrin XL] 300 mg PO DAILY 09/20/23 09/20/23 History busPIRone HCl [Buspar] 10 mg PO TID 09/20/23 09/20/23 History Allergies Allergy/AdvReac Type Severity Reaction Status Date / Time butorphanol tartrate Allergy BLISTERS Verified 09/22/23 19:27 [From Stadol] IN MOUTH ceftriaxone [From Rocephin] Allergy Rash/Hives Verified 09/22/23 19:27 clarithromycin [From Biaxin] Allergy Rash/Hives Verified 09/22/23 19:27 clindamycin Allergy Rash/Hives Verified 09/22/23 19:27 codeine Allergy Rash/Hives Verified 09/22/23 19:27 ergotamine tartrate Allergy Rash/Hives Verified 09/22/23 19:27 [From Cafergot] erythromycin base Allergy RASH, GI Verified 09/22/23 19:27 [From E-Mycin] SYMPTOMS ketorolac tromethamine Allergy Rash/Hives Verified 09/22/23 19:27 [From Toradol] liraglutide [From Victoza] Allergy Rash/Hives Verified 09/22/23 19:27 morphine Allergy Rash/Hives Verified 09/22/23 19:27 Penicillins Allergy Rash/Hives Verified 09/22/23 19:27 on upper body pentazocine lactate Allergy SEVERE Verified 09/22/23 19:27 [From Talwin] BLISTERS IN MOUTH pregabalin [From Lyrica] Allergy Rash/Hives Verified 09/22/23 19:27 propoxyphene HCl Allergy Rash/Hives Verified 09/22/23 19:27 [From Darvon] Sulfa (Sulfonamide Allergy Rash/Hives Verified 09/22/23 19:27 Antibiotics) sulfamethoxazole Allergy Rash/Hives Verified 09/22/23 19:27 [From Bactrim] tizanidine Allergy Unknown Verified 09/22/23 19:27 tramadol Allergy Unknown Verified 09/22/23 19:27 trimethoprim [From Bactrim] Allergy Rash/Hives Verified 09/22/23 19:27 vancomycin Allergy lip Verified 09/22/23 19:27 swelling metoclopramide [From Reglan] AdvReac Hallucinati Verified 09/22/23 19:27 ons monosodium glutamate [MSG] AdvReac Nausea & Verified 09/22/23 19:27 Vomiting nalbuphine HCl [From Nubain] AdvReac Nausea & Verified 09/22/23 19:27 Vomiting Physical Exam Vitals: Vital Signs Temp Pulse Pulse Resp BP BP Pulse Ox 09/23/23 08:20 18 09/23/23 08:19 98.3 F 100 18 95/60 95 09/23/23 04:00 97 18 88/53 95 09/23/23 02:26 97.8 F 101 H 82/46 96 09/23/23 01:40 105 H 18 103/51 95 09/23/23 01:20 99 18 89/56 95 09/23/23 01:00 105 H 18 102/62 94 L 09/23/23 00:32 107 H 20 109/82 97 09/22/23 21:00 121 H 20 102/71 95 09/22/23 20:27 134 H 20 109/74 100 09/22/23 19:22 97.9 F 117 H 20 118/76 98 Intake and Output 09/22/23 09/23/23 09/23/23 22:59 06:59 14:59 Output Total 450 Balance -450 Output: Urine 450 Straight 450 Other: Voiding Method Diaper Diaper Incontinent Incontinent External Catheter External Catheter Weight 65.771 kg 65.771 kg Results CBC & Chem 7: 09/23/23 07:42 09/23/23 07:42 Labs: Abnormal Lab Results - Last 24 Hours (Table) 09/22/23 09/22/23 09/22/23 Range/Units 20:29 20:29 20:29 Hgb (11.4-16.0) gm/dL MCHC (31.0-37.0) g/dL RDW 16.2 H (11.5-15.5) % Eosinophils # (0-0.7) k/uL D-Dimer 2.15 H (<0.60) mg/L FEU Potassium (3.5-5.1) mmol/L Chloride (98-107) mmol/L Carbon Dioxide 20 L (22-30) mmol/L Glucose 118 H (74-99) mg/dL POC Glucose (mg/dL) (70-110) mg/dL AST 40 H (14-36) U/L Troponin I (0.000-0.034) ng/mL Total Protein 5.5 L (6.3-8.2) g/dL Albumin 3.3 L (3.5-5.0) g/dL Urine Protein (Negative) Urine Ketones (Negative) Urine Bilirubin (Negative) 09/22/23 09/22/23 09/23/23 Range/Units 21:43 21:43 01:09 Hgb (11.4-16.0) gm/dL MCHC (31.0-37.0) g/dL RDW (11.5-15.5) % Eosinophils # (0-0.7) k/uL D-Dimer (<0.60) mg/L FEU Potassium (3.5-5.1) mmol/L Chloride (98-107) mmol/L Carbon Dioxide (22-30) mmol/L Glucose (74-99) mg/dL POC Glucose (mg/dL) (70-110) mg/dL AST (14-36) U/L Troponin I 0.662 H* 0.585 H* (0.000-0.034) ng/mL Total Protein (6.3-8.2) g/dL Albumin (3.5-5.0) g/dL Urine Protein Trace H (Negative) Urine Ketones 2+ H (Negative) Urine Bilirubin 1+ H (Negative) 09/23/23 09/23/23 09/23/23 Range/Units 07:03 07:42 07:42 Hgb 10.9 L (11.4-16.0) gm/dL MCHC 28.8 L (31.0-37.0) g/dL RDW 16.2 H (11.5-15.5) % Eosinophils # 0.8 H (0-0.7) k/uL D-Dimer (<0.60) mg/L FEU Potassium (3.5-5.1) mmol/L Chloride (98-107) mmol/L Carbon Dioxide (22-30) mmol/L Glucose (74-99) mg/dL POC Glucose (mg/dL) 135 H (70-110) mg/dL AST (14-36) U/L Troponin I 0.481 H* (0.000-0.034) ng/mL Total Protein (6.3-8.2) g/dL Albumin (3.5-5.0) g/dL Urine Protein (Negative) Urine Ketones (Negative) Urine Bilirubin (Negative) 09/23/23 Range/Units 07:42 Hgb (11.4-16.0) gm/dL MCHC (31.0-37.0) g/dL RDW (11.5-15.5) % Eosinophils # (0-0.7) k/uL D-Dimer (<0.60) mg/L FEU Potassium 5.3 H (3.5-5.1) mmol/L Chloride 112 H (98-107) mmol/L Carbon Dioxide 14 L (22-30) mmol/L Glucose 118 H (74-99) mg/dL POC Glucose (mg/dL) (70-110) mg/dL AST (14-36) U/L Troponin I (0.000-0.034) ng/mL Total Protein (6.3-8.2) g/dL Albumin (3.5-5.0) g/dL Urine Protein (Negative) Urine Ketones (Negative) Urine Bilirubin (Negative) Thrombosis Risk Factor Assmnt - Choose All That Apply Any of the Below Risk Factors Present?: Yes Each Factor Represents 1 point: Obesity (BMI >25) Other Risk Factors: Yes Each Risk Factor Represents 2 Points: Age 61-74 years Other congenital or acquired thrombophilia - If yes, enter type in comment: No Thrombosis Risk Factor Assessment Total Risk Factor Score: 3 Thrombosis Risk Factor Assessment Level: Moderate Risk
[2023-09-23 11:44] LABS: Glucose,Whole Blood 140 mg/dL (70-110)
[2023-09-23] MEDS: HYDROcodone/APAP 10-325MG 1 EACH TAB PO PRN (13:31)
[2023-09-23] MEDS ORDERED: HYDROcodone/APAP 10-325MG 1 EACH TAB PO PRN (15:16)
[2023-09-23] MEDS ORDERED: DEXTROSE 50% SYRINGE 50 ML IVP PRN ×2 (15:27)
[2023-09-23] MEDS ORDERED: Insulin Aspart (For Pump) 100 UNIT/ML VIAL SQ-PUMP SCH (16:00)
[2023-09-23 16:47] LABS: Glucose,Whole Blood 161 mg/dL (70-110)
[2023-09-23] MEDS: busPIRone HCl 10 MG TAB PO SCH (17:08)
[2023-09-23] MEDS: GABAPENTIN 300 MG CAP PO SCH (17:08)
[2023-09-23 20:26] LABS: Glucose,Whole Blood 138 mg/dL (70-110)
[2023-09-23] MEDS: ATORVASTATIN 40 MG TAB PO SCH (21:03)
[2023-09-23] MEDS: BRIMONIDINE TARTRATE 0.2% DROPS 5 ML BTL RIGHT EYE SCH (21:04)
[2023-09-23] MEDS: THIAMINE 100 MG TAB PO SCH (21:04)
[2023-09-23] MEDS: DORZOLAMIDE HCL 2% DROPS 10 ML BTL RIGHT EYE SCH (21:04)
[2023-09-23] MEDS: VIT A,C & E-LUTEIN-MINERALS 1 EACH TAB PO SCH (21:05)
[2023-09-24 06:12] LABS: Glucose,Whole Blood 136 mg/dL (70-110)
[2023-09-24] MEDS: PANTOPRAZOLE 40 MG TABLET PO SCH (06:41)
[2023-09-24 06:55] LABS: African American GFR (CKD) 65 (>60 ml/min/1.73 sqM); Anion Gap 15 mmol/L; Blood Urea Nitrogen 21 mg/dL (7-17); Carbon Dioxide 12 mmol/L (22-30); Chloride 110 mmol/L (98-107); Glucose 139 mg/dL (74-99); Magnesium 1.6 mg/dL (1.6-2.3); Non-African American GFR(CKD) 56 (>60 ml/min/1.73 sqM); Potassium 4.6 mmol/L (3.5-5.1); Sodium 137 mmol/L (137-145)
[2023-09-24] MEDS: ASPIRIN 81 MG PO SCH (08:31)
[2023-09-24] MEDS: buPROPion XL 300 MG TAB.ER.24H PO SCH (08:32)
[2023-09-24] MEDS ORDERED: Magnesium Replacement Protocol 1 EACH MISC MISCELLANE PRN (08:56)
--- NOTE | 2023-09-24 09:14 | CA ---
Transthoracic Echo Report Name: Melissa Pena Age: 73 Gender: F : 1950 Exam Date: 09/23/2023 10:59 Exam Location: [facility] Ht (in): 60 Wt (lb): 145 Ordering Physician: Francisco Nash MD Attending/Referring Phys: Double Back Operator Ginger Henriquez RDCS Procedure CPT: Indications: nstemi Cardiac Hx: a fib Technical Quality: Technically difficult study Contrast 1: Total Dose (mL): Contrast 2: Total Dose (mL): MEASUREMENTS (Male / Female) Normal Values 2D ECHO LV Diastolic Diameter PLAX 4.4 cm 4.2 - 5.9 / 3.9 - 5.3 cm LV Systolic Diameter PLAX 2.8 cm IVS Diastolic Thickness 1.5 cm 0.6 - 1.0 / 0.6 - 0.9 cm LVPW Diastolic Thickness 1.3 cm 0.6 - 1.0 / 0.6 - 0.9 cm LV Relative Wall Thickness 0.6 RV Internal Dim ED PLAX 3.7 cm LA Systolic Diameter LX 3.9 cm 3.0 - 4.0 / 2.7 - 3.8 cm LA Volume 83.4 cm??? 18 - 58 / 22 - 52 cm??? LA Volume Index 49.3 cm???/m??? 16 - 28 cm???/m??? M-MODE Aortic Root Diameter MM 3.4 cm AV Cusp Separation MM 2.4 cm DOPPLER AV Peak Velocity 162.9 cm/s AV Peak Gradient 10.6 mmHg MV Area PHT 6.0 cm??? MV Deceleration Time 74.4 ms TR Peak Velocity 289.5 cm/s TR Peak Gradient 33.5 mmHg Right Ventricular Systolic Press 37.7 mmHg FINDINGS Left Ventricle Left ventricular ejection fraction is estimated at 60-65 %. Left ventricular cavity size normal. Moderately increased septal wall thickness. Moderately increased posterior wall thickness. Right Ventricle Mild right ventricular dilatation. Mild pulmonary hypertension. Right Atrium Right atrium not well visualized. Left Atrium Severely increased left atrial volume. Mildly increased left atrial area. Mitral Valve Structurally normal mitral valve. No mitral stenosis, regurgitation or prolapse. Aortic Valve Trileaflet aortic valve. Thickened aortic valve without stenosis. Tricuspid Valve Tricuspid valve not well visualized. Mild tricuspid regurgitation. Pulmonic Valve Structurally normal pulmonic valve. No pulmonic regurgitation. Pericardium No pericardial effusion. Aorta Normal size aortic root and proximal ascending aorta. CONCLUSIONS Normal LV systolic function Mild tricuspid regurgitation Previewed by: Dr. Chico Chandra MD (Electronically Signed) Final Date: 24 September 2023 09:13
[2023-09-24] MEDS: MAGNESIUM SULFATE-D5W PMX 1 GM in DEXTROSE/WATER 1 100ML.BAG IVPB SCH (09:56)
--- NOTE | 2023-09-24 09:56 | P.PN ---
Subjective HISTORY OF PRESENT ILLNESS: This is a 73-year-old female with a past medical history significant for coronary artery disease, hypertension, hyperlipidemia, diabetes, obstructive sleep apnea, history of adrenal insufficiency, and valvular heart disease and thoracic aortic aneurysm. Patient follows in the office with Dr. Rosenberg. We have been asked to see the patient in consultation for new onset A-fib. Patient examined at the bedside. Patient states over the past week she has been dealing with episodes of nausea. She states that she has not been eating much for the past week. She states that she has been drinking although she feels like she is dehydrated. She denied having any chest pain or pressure. Denied any shortness of breath. She does report having palpitations. Patient presented to the hospital for further evaluation. Patient was found to be in A-fib with RVR. She denies a history of atrial fibrillation. She remains in atrial fibrillation this morning with a heart rate around 105. DIAGNOSTICS: - EKG reveals A-fib with RVR. - Chest xray hazy opacity over the left lung base could be artifactual. Mild cardiomegaly and chronic lung changes. -Chest CTA: Negative for pulmonary embolism. Cardiomegaly and mild bilateral lower lung edema and/or fibrosis redemonstrated. No new acute pulmonary filtrates seen. - Laboratory data: WBC 5.9. Hemoglobin 10.9. Platelet count 270. D-dimer 2.15. Sodium 140. Potassium 5.3. BUN 17. Creatinine 0.98. Troponin 0.662. 0.585. 0.481. proBNP 4380. - Current home cardiac medications include: Medication list not updated at the time of dictation - Most recent echocardiogram obtained in August 2022 reveals ejection fraction 60%, moderate MR, trace AR, mild TR. - Cardiac catheterization history: 2019 revealing intermediate disease involving the proximal LAD with about 60% with aneurysmal formation 09/24/2023 Patient examined this morning at bedside. Patient denies chest pain or pressure. She denies shortness of breath. She remains in atrial fibrillation with a heart rate around 120. Echocardiogram completed revealing ejection fraction 60 to 65% with mild TR. Blood pressures are soft this morning with a systolic around 100. TSH 2.930. PHYSICAL EXAM: VITAL SIGNS: Reviewed. GENERAL: Well-developed in no acute distress. HEENT: Head is normocephalic. Pupils are equal, round. Sclerae anicteric. Mucous membranes of the mouth are moist. Neck supple. No JVD or thyromegaly LUNGS: Respirations even and unlabored. Lungs essentially clear to auscultation bilaterally. HEART: Mildly tachycardic. Irregular rate and rhythm. S1 and S2 heard. Systolic murmur noted. ABDOMEN: Soft. Nondistended. Nontender. EXTREMITIES: Normal range of motion. No clubbing or cyanosis. Peripheral pulses intact. No lower extremity edema NEUROLOGIC: Awake and alert. Oriented x 3. ASSESSMENT: Nausea with decreased oral intake x 1 week New onset atrial fibrillation with RVR Elevated troponins, likely type II MN secondary to A-fib with RVR Coronary artery disease Peripheral vascular disease Valvular heart disease Hypertension Hyperlipidemia Diabetes Obstructive sleep apnea History of adrenal insufficiency History of thoracic aortic aneurysm PLAN: Continue Eliquis 5 mg twice a day Continue metoprolol. Increase frequency to 25 mg 3 times a day Continue telemetry monitoring Further recommendations pending patient course Nurse practitioner note has been reviewed by physician. Signing provider agrees with the documented findings, assessment, and plan of care documented by BABCOCK TESTER as a scribe. Objective - Vital Signs Vital signs: Vital Signs Temp 98.2 F 09/24/23 08:20 Pulse 125 H 09/24/23 08:20 Resp 18 09/24/23 08:20 BP 100/60 09/24/23 08:20 Pulse Ox 94 L 09/24/23 08:20 FiO2 Intake & Output 09/23/23 09/24/23 09/24/23 18:59 06:59 18:59 Intake Total 400 Output Total 400 650 Balance 0 -650 Intake: Oral 400 Output: Urine 400 650 Other: Voiding Method Diaper Diaper Diaper Incontinent Incontinent Incontinent External Catheter External Catheter External Catheter # Voids 1 - Labs CBC & Chem 7: 09/23/23 07:42 09/24/23 06:29 Labs: Abnormal Lab Results - Last 24 Hours (Table) 09/23/23 09/23/23 09/23/23 Range/Units 07:42 07:42 07:42 Potassium 5.3 H (3.5-5.1) mmol/L Chloride 112 H (98-107) mmol/L Carbon Dioxide 14 L (22-30) mmol/L BUN (7-17) mg/dL Glucose 118 H (74-99) mg/dL POC Glucose (mg/dL) (70-110) mg/dL Hemoglobin A1c 7.0 H (<=6.0) % Troponin I 0.481 H* (0.000-0.034) ng/mL 09/23/23 09/23/23 09/23/23 Range/Units 11:37 16:46 20:25 Potassium (3.5-5.1) mmol/L Chloride (98-107) mmol/L Carbon Dioxide (22-30) mmol/L BUN (7-17) mg/dL Glucose (74-99) mg/dL POC Glucose (mg/dL) 140 H 161 H 138 H (70-110) mg/dL Hemoglobin A1c (<=6.0) % Troponin I (0.000-0.034) ng/mL 09/24/23 09/24/23 09/24/23 Range/Units 06:11 06:29 06:29 Potassium (3.5-5.1) mmol/L Chloride 110 H (98-107) mmol/L Carbon Dioxide 12 L (22-30) mmol/L BUN 21 H (7-17) mg/dL Glucose 139 H (74-99) mg/dL POC Glucose (mg/dL) 136 H (70-110) mg/dL Hemoglobin A1c 7.5 H (<=6.0) % Troponin I (0.000-0.034) ng/mL
[2023-09-24 11:27] LABS: Glucose,Whole Blood 186 mg/dL (70-110)
--- NOTE | 2023-09-24 14:01 | P.PN ---
Subjective Progress Note Date: 09/24/23 Patient is a 73-year-old female with history of coronary disease, adrenal insufficiency valvular heart disease came in with the complaints of nausea vomiting diarrhea patient is found to be in atrial fibrillation was on Cardizem drip which was subsequently discontinued and patient is on presently on metopr olol patient is hypotensive because of Cardizem. Patient does have palpitations on admission which resolved at this time patient heart rate is fairly controlled at this time. Patient has an elevated BNP of 4000 and chest CTs negative for pulmonary embolism there is suspicion of pulmonary fibrosis versus pulmonary edema although patient does not have any peripheral edema and laying flat on the bed patient is presently receiving IV fluids for hypotension CT of the abdomen did not show any significant abnormality patient probably has viral gastroenteritis or gastritis. Her nausea vomiting improved at this time. Patient also has chronic pain for which patient is on Brinkley at home 10 mg. 09/24/2023 Patient is evaluated today in follow-up. She remains in atrial fibrillation with rate controlled she has not started on metoprolol as well as Eliquis. She is having low blood pressures down into the 90s systolic and we would consider an increase in her Solu-Cortef if this continues. Echocardiogram comes back showing normal LV systolic function with mild tricuspid regurgitation. Potassiu m proved down to 4.6, sodium 137, BUN 21, creatinine 1.00. Her magnesium level today is 1.6. Review of Systems Constitutional: Denied any fatigue denied any fever. Cardio vascular: denied any chest pain, palpitations Gastrointestinal: denied any nausea, vomiting, diarrhea Pulmonary: Denied any shortness of breath cough Neurologic denied any new focal deficits All inpatient medications were reviewed and appropriate changes in these medications as dictated in the interval history and assessment and plan. PHYSICAL EXAMINATION: GENERAL: The patient is alert and oriented x3, not in any acute distress. Well developed, well nourished. HEENT: Pupils are round and equally reacting to light. EOMI. No scleral icterus. No conjunctival pallor. Normocephalic, atraumatic. No pharyngeal erythema. No thyromegaly. CARDIOVASCULAR: S1 and S2 present. No murmurs, rubs, or gallops. PULMONARY: Chest is clear to auscultation, no wheezing or crackles. ABDOMEN: Soft, nontender, nondistended, normoactive bowel sounds. No palpable organomegaly. MUSCULOSKELETAL: No joint swelling or deformity. EXTREMITIES: No cyanosis, clubbing, or pedal edema. NEUROLOGICAL: Gross neurological examination did not reveal any focal deficits. SKIN: Has multiple lesions all over her upper and lower extremities a scratch spaulding that are scabbing over. Additionally patient's groin abdominal folds have significant excoriation and redness with an open area under the left side of the abdominal fold. Assessment and plan -Nausea along with abdominal discomfort which resolved at this time secondary to gastritis or gastroenteritis patient is on Protonix which will be continued -New onset atrial fibrillation with rapid ventricular rate, patient is presently fairly rate controlled, is on metoprolol and anticoagulation with Eliquis IV heparin was discontinued -Elevated troponins, secondary to atrial fibrillation with rapid close rate, type II CA -Valvular heart disease -Peripheral artery disease -Intertrigo and cellulitis of the groin and abdominal folds infectious disease is consulted for this this patient has had minimal improvement with nystatin powder. -Hypertension patient is hypotensive at this time, patient is on multiple blood pressure medications including lisinopril and hydrochlorothiazide which are currently on hold at this time. -Hypertension -Type 2 diabetes mellitus -Obstructive sleep apnea -Adrenal insufficiency on hydrocortisone which is being continued -History of DVT in the past -Chronic pain DVT prophylaxis:Patient is on anticoagulation at this time GI prophylaxis Full code Patient is continued on metoprolol has been started on oral anticoagulation. She remains in atrial fibrillation with controlled heart rate. Blood has been increased today patient will be monitored on the cardiac telemetry overnight. Infectious diseases consulted for the rash and cellulitis of the abdominal and groin folds. For the meantime continue with nystatin powder. Patient will need to be evaluated physical therapy for discharge planning. The impression and plan of care has been dictated by Cece Tapia, Nurse Practitioner as directed. Dr. Pascale MD I have performed a history and physical examination and medical decision making of this patient, discussed the same with the dictator, and agree with the dictators assessment and plan as written, documented as a scribe. Based on total visit time, I have performed more than 50% of this visit. Objective - Vital Signs Vital signs: Vital Signs Temp 98.2 F 09/24/23 08:20 Pulse 98 09/24/23 11:15 Resp 18 09/24/23 11:15 BP 98/59 09/24/23 11:15 Pulse Ox 94 L 09/24/23 11:15 FiO2 Intake & Output 09/23/23 09/24/23 09/24/23 18:59 06:59 18:59 Intake Total 400 Output Total 400 650 Balance 0 -650 Intake: Oral 400 Output: Urine 400 650 Other: Voiding Method Diaper Diaper Diaper Incontinent Incontinent Incontinent External Catheter External Catheter External Catheter # Voids 1 - Labs CBC & Chem 7: 09/23/23 07:42 09/24/23 06:29 Labs: Abnormal Lab Results - Last 24 Hours (Table) 09/23/23 09/23/23 09/24/23 Range/Units 16:46 20:25 06:11 Chloride (98-107) mmol/L Carbon Dioxide (22-30) mmol/L BUN (7-17) mg/dL Glucose (74-99) mg/dL POC Glucose (mg/dL) 161 H 138 H 136 H (70-110) mg/dL Hemoglobin A1c (<=6.0) % 09/24/23 09/24/23 09/24/23 Range/Units 06:29 06:29 11:25 Chloride 110 H (98-107) mmol/L Carbon Dioxide 12 L (22-30) mmol/L BUN 21 H (7-17) mg/dL Glucose 139 H (74-99) mg/dL POC Glucose (mg/dL) 186 H (70-110) mg/dL Hemoglobin A1c 7.5 H (<=6.0) % Assessment and Plan Time with Patient: Less than 30
[2023-09-24] MEDS: METOPROLOL TARTRATE 25 MG TAB PO SCH (16:29)
[2023-09-24 16:37] LABS: Glucose,Whole Blood 219 mg/dL (70-110)
[2023-09-24 19:57] LABS: Glucose,Whole Blood 277 mg/dL (70-110)
[2023-09-24] MEDS: ACETAMINOPHEN TAB 325 MG TAB PO PRN (21:05)
[2023-09-24] MEDS: CLOTRIMAZOLE 1% CREAM 30 GM TUBE TOPICAL SCH (21:06)
--- NOTE | 2023-09-24 22:57 | P.CONS ---
History of Present Illness - Reason for Consult Consult date: 09/24/23 Intertrigo/cellulitis Requesting physician: Cece Tapia - Chief Complaint Burning and itching to the abdominal and groin fold x few days - History of Present Illness Patient is a 73-year-old female with a past medical history significant for diabetes mellitus hypertension hyperlipidemia osteoarthritis and DVT history of recurrent UTIs presenting to the hospital 2 days ago for evaluation of generalized weakness intractable nausea vomiting patient on pre sentation to the hospital was afebrile and no fever have been recorded subsequently patient did have a normal white count kidney function normal liver enzymes normal urine negative serum acetone was positive influenza RSV COVID testing was negative did have a CT angiogram of the chest negative for PE or pneumonia patient is being managed by cardiology and admitting team she was noticed to have extensive excoriation of the abdominal as well as groin fold area prompting this consultation patient symptom has been going on for couple of weeks now noticed to have increasing swelling and discomfort to the abdominal fold as well as groin fold area describing the pain to be moderate intensity involving without any radiation and no drainage patient mention nystatin powder make it worse Review of Systems Positive point and negatives has been mentioned in the HPI, complete review of systems was performed and all other systems are negative Past Medical History Past Medical History: Diabetes Mellitus, Deep Vein Thrombosis (DVT), Fibromyalgia, Hyperlipidemia, Hypertension, Osteoarthritis (OA), Pneumonia, Renal Disease, Sleep Apnea/CPAP/BIPAP, Vascular Disorder Additional Past Medical History / Comment(s): Pt recently admitted to 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, DVT R calf in 1976, cardiac murmur, occipital neuraligia, balance issues-has narrowing of vessels "in the back of my head", vertigo, varicosities, states rt shoulder torn rotator cuff History of Any Multi-Drug Resistant Organisms: ESBL, MRSA, VRE Year Discovered:: 11/25/20 ESBL;12/06/19 VRE; 03/10/11 MRSA MDRO Source:: Urine ESBL; Urine-VRE: MRSA 4th Right TOE Past Surgical History: Appendectomy, Back Surgery, Bladder Surgery, Breast Surgery, Cholecystectomy, Heart Catheterization, Hysterectomy, Orthopedic Surgery, Tonsillectomy Additional Past Surgical History / Comment(s): Lumbar fusions, bladder suspension, occipital nerve blocks, 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, R wrist/elbow nerve repair, bone removed R shoulder, 4th toe R foot partial amputation, bilateral feet/bunionectomies, R knee arthroscopies, R orbit decompression with ethmoidectomy and eyelid lift, EGD, colonoscopies, cystocopies, lithotripsy/stents, bilateral breast reduction, bilateral cataract removals, parathyroid surgery - April 2019, pain clinic procedures Past Anesthesia/Blood Transfusion Reactions: No Reported Reaction Additional Past Anesthesia/Blood Transfusion Reaction / Comm: never recieved blood Past Psychological History: Depression Additional Psychological History / Comment(s): Pt resides with her spouse. She uses a walker. She normally drives. She has a nebulizer, cpap, bsc, shower chair, bp machine, dexcom monitor system for her BG and insulin pump. Smoking Status: Never smoker Past Alcohol Use History: Occasional Additional Past Alcohol Use History / Comment(s): no alcohol Past Drug Use History: None Reported - Past Family History Father Family Medical History: Coronary Artery Disease (CAD), CVA/TIA, Diabetes Mellitus, Myocardial Infarction ([place]), Pneumonia Additional Family Medical History / Comment(s): Father at the age of 78yrs from [place] and pneumonia. Mother Family Medical History: Cancer, Congestive Heart Failure (CHF) Additional Family Medical History / Comment(s): Mother had uterine cancer. She recently at the age of 96yrs old from shingles. Medications and Allergies Home Medications Medication Instructions Recorded Confirmed Type Meclizine [Antivert] 25 mg PO QID PRN 11/26/17 09/23/23 History Aspirin 81 mg PO DAILY #0 07/02/18 09/23/23 Rx L.acidoph,Paracasei, B.lactis 2 cap PO DAILY 10/08/18 09/23/23 History [Probiotic] Melatonin 5 mg PO HS PRN 10/08/18 09/23/23 History Thiamine [Vitamin B-1] 100 mg PO HS 10/08/18 09/23/23 History Vitamin B-Complex Drops 1 drop PO BID 10/08/18 09/23/23 History C,E,Zinc,Copper 11/Wnzls8d/Lut 1 cap PO HS 06/25/20 09/23/23 History [Ocuvite Adult 50 Plus Softgel] Brimonidine Tartrate [Alphagan P 1 drop RIGHT EYE BID 11/26/20 09/23/23 History 0.2% Ophth Soln] Glucagon [Gvoke Pfs 1-Pack Syringe] 1 mg SQ ONCE PRN 11/26/20 09/23/23 History Pantoprazole Sodium [Protonix] 40 mg PO HS 11/26/20 09/23/23 History Insulin Aspart (For Pump) [NovoLOG 0.01 unit SQ-PUMP CONTINUOUS 03/03/21 09/23/23 History (For Pump)] Cranberry Fruit Extract [Cranberry] 500 mg PO BID 05/25/22 09/23/23 History Dorzolamide 2% [Trusopt 2%] 1 drop RIGHT EYE BID 05/25/22 09/23/23 History Multivit-Min/Folic Acid/Dgh856 1 tab PO DAILY 05/25/22 09/23/23 History [Alive Premium Adult Multivit] Cephalexin [Keflex] 250 mg PO HS 09/04/22 09/23/23 History Butalb/APAP/Caff 50-325-40Mg 1 tab PO Q6H PRN #12 tab 09/06/22 09/23/23 Rx [Fioricet 50-325-40] Dhea 50mg With B-12 2500mcg 1 tab PO HS 04/27/23 09/23/23 History Folic Acid 800mcg With Folate 1 tab PO HS 04/27/23 09/23/23 History 1333mg Hydrocortisone [Cortef] 15 mg PO QAM 04/27/23 09/23/23 History Insulin Aspart [NovoLOG Flexpen] See Protocol SQ ACHS PRN 04/27/23 09/23/23 History Ondansetron [Zofran] 4 mg PO Q6H PRN 04/27/23 09/23/23 History Hydrocortisone [Cortef] 10 mg PO BID@1200,2000 09/20/23 09/23/23 History Magnesium Oxide [Mag-Ox] 400 mg PO BID 09/20/23 09/23/23 History Promethazine [Phenergan] 25 mg PO QID PRN 09/20/23 09/23/23 History buPROPion XL [Wellbutrin XL] 300 mg PO DAILY 09/20/23 09/23/23 History Iron 27mg 27 mg PO HS 09/23/23 09/23/23 History Turmeric Complex 550mg 550 mg PO HS 09/23/23 09/23/23 History Acetaminophen Tab [Tylenol] 650 mg PO Q6HR PRN tab 09/28/23 Rx Apixaban [Eliquis] 5 mg PO BID tab 09/28/23 Rx Atorvastatin [Lipitor] 40 mg PO HS tab 09/28/23 Rx Clotrimazole Cream [Lotrimin Cream] 1 applic TOPICAL BID each 09/28/23 Rx Gabapentin [Neurontin] 300 mg PO TID #9 cap 09/28/23 Rx HYDROcodone/APAP 10-325MG [[place] 1 tab PO Q6H PRN #12 tab 09/28/23 Rx 10-325] Metoprolol Tartrate [Lopressor] 50 mg PO TID tab 09/28/23 Rx busPIRone HCl [Buspar] 5 mg PO BID tab 09/28/23 Rx hydrOXYzine pamoate [Vistaril] 25 mg PO Q8HR PRN cap 09/28/23 Rx polyethylene glycoL 3350 [Miralax] 17 gm PO DAILY packet 09/28/23 Rx Allergies Allergy/AdvReac Type Severity Reaction Status Date / Time butorphanol tartrate Allergy BLISTERS Verified 09/23/23 11:24 [From Stadol] IN MOUTH ceftriaxone [From Rocephin] Allergy Rash/Hives Verified 09/23/23 11:24 clarithromycin [From Biaxin] Allergy Rash/Hives Verified 09/23/23 11:24 clindamycin Allergy Rash/Hives Verified 09/23/23 11:24 codeine Allergy Rash/Hives Verified 09/23/23 11:24 ergotamine tartrate Allergy Rash/Hives Verified 09/23/23 11:24 [From Cafergot] erythromycin base Allergy RASH, GI Verified 09/23/23 11:24 [From E-Mycin] SYMPTOMS ketorolac tromethamine Allergy Rash/Hives Verified 09/23/23 11:24 [From Toradol] liraglutide [From Victoza] Allergy Rash/Hives Verified 09/23/23 11:24 morphine Allergy Rash/Hives Verified 09/23/23 11:24 Penicillins Allergy Rash/Hives Verified 09/23/23 11:24 on upper body pentazocine lactate Allergy SEVERE Verified 09/23/23 11:24 [From Talwin] BLISTERS IN MOUTH pregabalin [From Lyrica] Allergy Rash/Hives Verified 09/23/23 11:24 propoxyphene HCl Allergy Rash/Hives Verified 09/23/23 11:24 [From Darvon] Sulfa (Sulfonamide Allergy Rash/Hives Verified 09/23/23 11:24 Antibiotics) sulfamethoxazole Allergy Rash/Hives Verified 09/23/23 11:24 [From Bactrim] tizanidine Allergy Unknown Verified 09/23/23 11:24 tramadol Allergy Unknown Verified 09/23/23 11:24 trimethoprim [From Bactrim] Allergy Rash/Hives Verified 09/23/23 11:24 vancomycin Allergy lip Verified 09/23/23 11:24 swelling metoclopramide [From Reglan] AdvReac Hallucinati Verified 09/23/23 11:24 ons monosodium glutamate [MSG] AdvReac Nausea & Verified 09/23/23 11:24 Vomiting nalbuphine HCl [From Nubain] AdvReac Nausea & Verified 09/23/23 11:24 Vomiting Physical Exam Vitals: Vital Signs Temp Pulse Resp BP Pulse Ox 09/24/23 11:15 98 18 98/59 94 L 09/24/23 08:20 98.2 F 125 H 18 100/60 94 L 09/24/23 04:00 98.2 F 98 18 109/65 94 L 09/24/23 00:00 90 18 104/60 93 L 09/23/23 20:00 98 F 106 H 18 100/68 94 L 09/23/23 15:21 98.1 F 115 H 18 97/60 95 Intake and Output 09/23/23 09/24/23 09/24/23 22:59 06:59 14:59 Intake Total 200 Output Total 650 Balance 200 -650 Intake: Oral 200 Output: Urine 650 Other: Voiding Method Diaper Diaper Diaper Incontinent Incontinent Incontinent External Catheter External Catheter External Catheter # Voids 1 GENERAL DESCRIPTION: Elderly female lying in bed, no distress. No tachypnea or accessory muscle of respiration use. HEENT: Shows Pallor , no scleral icterus. Oral mucous membrane is dry. No pharyngeal erythema or thrush NECK: Trachea central, no thyromegaly. LUNGS: Unlabored breathing. Clear to auscultation anteriorly. No wheeze or crackle. HEART: S1, S2, regular rate and rhythm. No loud murmur ABDOMEN: Soft, no tenderness , EXTREMITIES: No edema of feet. SKIN: Abdominal fold and groin area did have evidence of excoriation suggestive of cutaneous candidiasis no redness or drainage. NEUROLOGICAL: The patient is awake, alert, oriented x3, mood and affect normal. Results CBC & Chem 7: 09/23/23 07:42 09/27/23 08:55 Labs: Abnormal Lab Results - Last 24 Hours (Table) 09/23/23 09/23/23 09/23/23 Range/Units 07:42 16:46 20:25 Chloride (98-107) mmol/L Carbon Dioxide (22-30) mmol/L BUN (7-17) mg/dL Glucose (74-99) mg/dL POC Glucose (mg/dL) 161 H 138 H (70-110) mg/dL Hemoglobin A1c 7.0 H (<=6.0) % 09/24/23 09/24/23 09/24/23 Range/Units 06:11 06:29 06:29 Chloride 110 H (98-107) mmol/L Carbon Dioxide 12 L (22-30) mmol/L BUN 21 H (7-17) mg/dL Glucose 139 H (74-99) mg/dL POC Glucose (mg/dL) 136 H (70-110) mg/dL Hemoglobin A1c 7.5 H (<=6.0) % 09/24/23 Range/Units 11:25 Chloride (98-107) mmol/L Carbon Dioxide (22-30) mmol/L BUN (7-17) mg/dL Glucose (74-99) mg/dL POC Glucose (mg/dL) 186 H (70-110) mg/dL Hemoglobin A1c (<=6.0) % Assessment and Plan (1) Candidal intertrigo Status: Acute Code(s): B37.2 - CANDIDIASIS OF SKIN AND NAIL SNOMED Code(s): 000674983 (2) Cutaneous candidiasis Status: Acute Code(s): B37.2 - CANDIDIASIS OF SKIN AND NAIL SNOMED Code(s): 96681083 Plan: 1patient with extensive abdominal fold as well as groin cutaneous candidiasis without evidence for secondary bacterial cellulitis 2-patient with multiple antibiotic ALLERGIES that would limit the number of antibiotic safe to use 3-we will apply clotrimazole cream twice a day and see clinical response We will follow on clinical condition and cultures to further adjust medication if needed Thank you for this consultation we will follow the patient along with you Dictation was produced using [employer] dictation software. please excuse any grammatical, word or spelling errors. Time with Patient: Greater than 30
[2023-09-25 05:43] LABS: Glucose,Whole Blood 283 mg/dL (70-110)
[2023-09-25] MEDS: diphenhydrAMINE 25 MG CAP PO STA (05:49)
[2023-09-25] MEDS: INSULIN DETEMIR (LEVEMIR) 100 UNIT/ML SYR SQ SCH ×2 (10:36→21:21)
[2023-09-25 11:27] LABS: Glucose,Whole Blood 214 mg/dL (70-110)
[2023-09-25] MEDS: diphenhydrAMINE 25 MG CAP PO PRN (11:44)
--- NOTE | 2023-09-25 14:26 | P.PN ---
Subjective Progress Note Date: 09/25/23 HISTORY OF PRESENT ILLNESS: This is a 73-year-old female with a past medical history significant for co ronary artery disease, hypertension, hyperlipidemia, diabetes, obstructive sleep apnea, history of adrenal insufficiency, and valvular heart disease and thoracic aortic aneurysm. Patient follows in the office with Dr. Rosenberg. We have been asked to see the patient in consultation for new onset A-fib. Patient examined at the bedside. Patient states over the past week she has been dealing with episodes of nausea. She states that she has not been eating much for the past week. She states that she has been drinking although she feels like she is dehydrated. She denied having any chest pain or pressure. Denied any shortness of breath. She does report having palpitations. Patient presented to the hospital for further evaluation. Patient was found to be in A-fib with RVR. She denies a history of atrial fibrillation. She remains in atrial fibrillation this morning with a heart rate around 105. DIAGNOSTICS: - EKG reveals A-fib with RVR. - Chest xray hazy opacity over the left lung base could be artifactual. Mild cardiomegaly and chronic lung changes. -Chest CTA: Negative for pulmonary embolism. Cardiomegaly and mild bilateral lower lung edema and/or fibrosis redemonstrated. No new acute pulmonary filtrates seen. - Laboratory data: WBC 5.9. Hemoglobin 10.9. Platelet count 270. D-dimer 2.15. Sodium 140. Potassium 5.3. BUN 17. Creatinine 0.98. Troponin 0.662. 0.585. 0.481. proBNP 4380. - Current home cardiac medications include: Medication list not updated at the time of dictation - Most recent echocardiogram obtained in August 2022 reveals ejection fraction 60%, moderate MR, trace AR, mild TR. - Cardiac catheterization history: 2019 revealing intermediate disease involving the proximal LAD with about 60% with aneurysmal formation 09/24/2023 Patient examined this morning at bedside. Patient denies chest pain or pressure. She denies shortness of breath. She remains in atrial fibrillation with a heart rate around 120. Echocardiogram completed revealing ejection fraction 60 to 65% with mild TR. Blood pressures are soft this morning with a systolic around 100. TSH 2.930. 09/24 Patient states she developed itching this morning around 4 in the morning was started on Benadryl. Telemetry remains atrial fibrillation with rate in the low 100s, blood pressure 144/84, pulse ox 96% on room air. Magnesium 1.8. Metoprolol tartrate currently at 25 mg 3 times daily. PHYSICAL EXAM: VITAL SIGNS: Reviewed. GENERAL: Well-developed in no acute distress. HEENT: Head is normocephalic. Pupils are equal, round. Sclerae anicteric. Mucous membranes of the mouth are moist. Neck supple. No JVD or thyromegaly LUNGS: Respirations even and unlabored. Lungs essentially clear to auscultation bilaterally. HEART: Mildly tachycardic. Irregular rate and rhythm. S1 and S2 heard. Systolic murmur noted. ABDOMEN: Soft. Nondistended. Nontender. EXTREMITIES: Normal range of motion. No clubbing or cyanosis. Peripheral pulses intact. No lower extremity edema NEUROLOGIC: Awake and alert. Oriented x 3. ASSESSMENT: Nausea with decreased oral intake x 1 week New onset atrial fibrillation with RVR Elevated troponins, likely type II RI secondary to A-fib with RVR Coronary artery disease Peripheral vascular disease Valvular heart disease Hypertension Hyperlipidemia Diabetes Obstructive sleep apnea History of adrenal insufficiency History of thoracic aortic aneurysm PLAN: Continue Eliquis 5 mg twice a day Continue metoprolol. Increase to 50 mg twice daily. Continue telemetry monitoring Further recommendations pending patient course Nurse practitioner note has been reviewed by physician. Signing provider agrees with the documented findings, assessment, and plan of care documented by PRODUCTION TRAINER as a scribe. Objective - Vital Signs Vital signs: Vital Signs Temp 97.9 F 09/25/23 08:30 Pulse 111 H 09/25/23 11:42 Resp 17 09/25/23 11:42 BP 117/76 09/25/23 11:42 Pulse Ox 94 L 09/25/23 11:42 FiO2 Intake & Output 09/24/23 09/25/23 09/25/23 18:59 06:59 18:59 Intake Total 0 Output Total 250 Balance -250 0 Intake: Oral 0 Output: Urine 250 Other: Voiding Method Diaper Diaper Diaper Incontinent Incontinent Incontinent External Catheter External Catheter External Catheter - Labs CBC & Chem 7: 09/23/23 07:42 09/24/23 06:29 Labs: Abnormal Lab Results - Last 24 Hours (Table) 09/24/23 09/24/23 09/25/23 Range/Units 16:34 19:56 05:42 POC Glucose (mg/dL) 219 H 277 H 283 H (70-110) mg/dL 09/25/23 Range/Units 11:24 POC Glucose (mg/dL) 214 H (70-110) mg/dL
[2023-09-25] MEDS: MAGNESIUM SULFATE-D5W PMX 1 GM in DEXTROSE/WATER 1 100ML.BAG IVPB ONE (15:56)
[2023-09-25 16:12] LABS: Glucose,Whole Blood 321 mg/dL (70-110)
--- NOTE | 2023-09-25 17:54 | P.PN ---
Subjective Progress Note Date: 09/25/23 Melissa Pena is a 72 yo F with PMH of adrenal insufficiency, T2DM, chronic neck pain, migraine admitted with new onset atrial fibrillation with RVR, elevated troponins, nausea and multiple other medical issues. Telemetry reporting atrial fibrillation, heart rates in the 1 teens. Denies chest pain, palpitations. Reports increased shortness of breath with lying flat. Maintaining O2 sats in the 90s on room air. evaluated by cardiology, continues on anticoagulation with Eliquis, metoprolol. Magnesium 1.8 clotrimazole cream as per infectious disease for extensive cutaneous candidiasis. Objective - Vital Signs Vital signs: Vital Signs Temp 97.9 F 09/25/23 08:30 Pulse 100 09/25/23 15:32 Resp 18 09/25/23 15:32 BP 134/64 09/25/23 15:32 Pulse Ox 92 L 09/25/23 15:32 FiO2 Intake & Output 09/24/23 09/25/23 09/25/23 18:59 06:59 18:59 Intake Total 480 Output Total 250 550 Balance -250 -70 Intake: Oral 480 Output: Urine 250 550 Other: Voiding Method Diaper Diaper Diaper Incontinent Incontinent Incontinent External Catheter External Catheter External Catheter - Exam Vitals reviewed General: well developed, well nourished NAD, fatigued HEENT: Normocephalic, atraumatic, mucus membranes moist Neck: supple, no JVD, no thyromegaly CV: Regular rate and rhythm, positive systolic murmur, pulses 2+ Lungs: Normal effort. No wheezes or rales Abd: soft, nondistended, extensive tender abdominal and groin folds excoriation, chaffing, positive bowel sounds present Neuro: Alert and oriented x3, no focal deficit Skin: warm and dry, right hand swollen. - Labs CBC & Chem 7: 09/23/23 07:42 09/24/23 06:29 Labs: Abnormal Lab Results - Last 24 Hours (Table) 09/24/23 09/25/23 09/25/23 Range/Units 19:56 05:42 11:24 POC Glucose (mg/dL) 277 H 283 H 214 H (70-110) mg/dL 09/25/23 Range/Units 16:09 POC Glucose (mg/dL) 321 H (70-110) mg/dL Assessment and Plan Assessment: New onset atrial fibrillation with RVR Elevated troponins, suspect related to the above Extensive abdominal folds, groin, cutaneous candidiasis without evidence for secondary bacterial cellulitis. Infectious disease following. Nausea, decreased oral intake x 1 week, resolved CAD chronic recurrent UTI, Klebsiella pneumoniae and Enterobacter Cloacae with resistance, S/P Invanz, transitioned to oral cipro. History of MRSA infection, anaphylactic reaction to vancomycin Chronic cervical radiculopathy, improved pain, recent fusion C4 C5 C6, June 2022 Chronic left shoulder pain ,patient reports since OR. Chronic migraines Covid, June 2021 Diabetes type 2 on insulin pump, hyperglycemic- steroid induced, A1c 8.7, currently off pump Diabetic neuropathy Thoracic aortic aneurysm, outpatient monitoring Hypertension, history of Hyperlipidemia Osteoarthritis History of DVT Obstructive sleep apnea on CPAP at home History of nephrolithiasis Marcel's disease /Adrenal insufficiency on hydrocortisone. 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 Diet adjusted to include consistent carb diet .Levemir added to med regimen for tight blood sugar control with close monitoring of Accu-Cheks. Benadryl ordered for itching. anticoagulation, antiarrhythmics as per cardiology-metoprolol increased.PT/OT, with subacute rehab at discharge once medically stable. The impression and plan of care has been dictated as directed. : I performed a history and examination of this patient, discussed the same with the dictator. I agree with the dictator's note ,documented as a scribe. Any additional findings or plans will be noted.
[2023-09-25 20:20] LABS: Glucose,Whole Blood 335 mg/dL (70-110)
[2023-09-25] MEDS: METOPROLOL TARTRATE 50 MG TAB PO SCH (21:21)
[2023-09-25] MEDS: MELATONIN 5 MG TABLET PO PRN (21:22)
--- NOTE | 2023-09-25 23:07 | P.PN ---
Subjective Progress Note Date: 09/25/23 Principal diagnosis: Reason for follow-up is abdominal fold and groin fold cutaneous candidiasis Patient is a 73-year-old female with a past medical history significant for diabetes mellitus hypertension hyperlipidemia osteoarthritis and DVT history of recurrent UTIs presenting to the hospital for generalized weakness also noted to have extensive abdominal and groin fold cutaneous candidiasis prompting this consultation. On today's evaluation that is 09/25/2023, patient has been afebrile, patient is breathing comfortably and is currently on room air, patient denies having any significant cough no chest pain shortness of breath, patient did have some nausea but no vomiting abdominal discomfort has decreased from the rash area and no diarrhea. No new labs has been obtained today Objective - Vital Signs Vital signs: Vital Signs Temp 97.9 F 09/25/23 08:30 Pulse 111 H 09/25/23 11:42 Resp 17 09/25/23 11:42 BP 117/76 09/25/23 11:42 Pulse Ox 94 L 09/25/23 11:42 FiO2 Intake & Output 09/24/23 09/25/23 09/25/23 18:59 06:59 18:59 Intake Total 0 Output Total 250 Balance -250 0 Intake: Oral 0 Output: Urine 250 Other: Voiding Method Diaper Diaper Diaper Incontinent Incontinent Incontinent External Catheter External Catheter External Catheter - Exam GENERAL DESCRIPTION: An elderly female lying in bed in no distress RESPIRATORY SYSTEM: Unlabored breathing , decreased breath sounds at bases HEART: S1 S2 regular rate and rhythm , ABDOMEN: Soft , no tenderness EXTREMITIES: No edema feet - Labs CBC & Chem 7: 09/23/23 07:42 09/24/23 06:29 Labs: Abnormal Lab Results - Last 24 Hours (Table) 09/24/23 09/24/23 09/25/23 Range/Units 16:34 19:56 05:42 POC Glucose (mg/dL) 219 H 277 H 283 H (70-110) mg/dL 09/25/23 Range/Units 11:24 POC Glucose (mg/dL) 214 H (70-110) mg/dL Assessment and Plan (1) Candidal intertrigo Current Visit: Yes Status: Acute Code(s): B37.2 - CANDIDIASIS OF SKIN AND NAIL SNOMED Code(s): 591502948 (2) Cutaneous candidiasis Current Visit: No Status: Acute Code(s): B37.2 - CANDIDIASIS OF SKIN AND NAIL SNOMED Code(s): 49970458 Plan: 1patient with extensive abdominal fold as well as groin cutaneous candidiasis without evidence for secondary bacterial cellulitis 2-patient with multiple antibiotic ALLERGIES that would limit the number of antibiotic safe to use 3-patient to continue with clotrimazole cream twice a day and monitor clinical course closely Dictation was produced using [employer] dictation software. please excuse any grammatical, word or spelling errors. Time with Patient: Less than 30
[2023-09-26 06:16] LABS: Glucose,Whole Blood 211 mg/dL (70-110)
[2023-09-26 11:36] LABS: Glucose,Whole Blood 149 mg/dL (70-110)
--- NOTE | 2023-09-26 14:18 | P.PN ---
Subjective Progress Note Date: 09/26/23 HISTORY OF PRESENT ILLNESS: This is a 73-year-old female with a past medical history significant for co ronary artery disease, hypertension, hyperlipidemia, diabetes, obstructive sleep apnea, history of adrenal insufficiency, and valvular heart disease and thoracic aortic aneurysm. Patient follows in the office with Dr. Rosenberg. We have been asked to see the patient in consultation for new onset A-fib. Patient examined at the bedside. Patient states over the past week she has been dealing with episodes of nausea. She states that she has not been eating much for the past week. She states that she has been drinking although she feels like she is dehydrated. She denied having any chest pain or pressure. Denied any shortness of breath. She does report having palpitations. Patient presented to the hospital for further evaluation. Patient was found to be in A-fib with RVR. She denies a history of atrial fibrillation. She remains in atrial fibrillation this morning with a heart rate around 105. DIAGNOSTICS: - EKG reveals A-fib with RVR. - Chest xray hazy opacity over the left lung base could be artifactual. Mild cardiomegaly and chronic lung changes. -Chest CTA: Negative for pulmonary embolism. Cardiomegaly and mild bilateral lower lung edema and/or fibrosis redemonstrated. No new acute pulmonary filtrates seen. - Laboratory data: WBC 5.9. Hemoglobin 10.9. Platelet count 270. D-dimer 2.15. Sodium 140. Potassium 5.3. BUN 17. Creatinine 0.98. Troponin 0.662. 0.585. 0.481. proBNP 4380. - Current home cardiac medications include: Medication list not updated at the time of dictation - Most recent echocardiogram obtained in August 2022 reveals ejection fraction 60%, moderate MR, trace AR, mild TR. - Cardiac catheterization history: 2019 revealing intermediate disease involving the proximal LAD with about 60% with aneurysmal formation 09/24/2023 Patient examined this morning at bedside. Patient denies chest pain or pressure. She denies shortness of breath. She remains in atrial fibrillation with a heart rate around 120. Echocardiogram completed revealing ejection fraction 60 to 65% with mild TR. Blood pressures are soft this morning with a systolic around 100. TSH 2.930. 09/24 Patient states she developed itching this morning around 4 in the morning was started on Benadryl. Telemetry remains atrial fibrillation with rate in the low 100s, blood pressure 144/84, pulse ox 96% on room air. Magnesium 1.8. Metoprolol tartrate currently at 25 mg 3 times daily. 09/25 Heart rate documented 115, blood pressure 100/56, telemetry is showing atrial fibrillation with heart rate in the 90s. Blood pressure has been soft at 89/53, pulse ox 94% on 2 L nasal cannula. PHYSICAL EXAM: VITAL SIGNS: Reviewed. GENERAL: Well-developed in no acute distress. HEENT: Head is normocephalic. Pupils are equal, round. Sclerae anicteric. Mucous membranes of the mouth are moist. Neck supple. No JVD or thyromegaly LUNGS: Respirations even and unlabored. Lungs essentially clear to auscultation bilaterally. HEART: Mildly tachycardic. Irregular rate and rhythm. S1 and S2 heard. Systolic murmur noted. ABDOMEN: Soft. Nondistended. Nontender. EXTREMITIES: Normal range of motion. No clubbing or cyanosis. Peripheral pulses intact. No lower extremity edema NEUROLOGIC: Awake and alert. Oriented x 3. ASSESSMENT: Nausea with decreased oral intake x 1 week New onset atrial fibrillation with RVR Elevated troponins, likely type II [place] secondary to A-fib with RVR Coronary artery disease Peripheral vascular disease Valvular heart disease Hypertension Hyperlipidemia Diabetes Obstructive sleep apnea History of adrenal insufficiency History of thoracic aortic aneurysm PLAN: Continue Eliquis 5 mg twice a day Increase frequency of metoprolol tartrate 50 mg to 3 times daily Continue telemetry monitoring Further recommendations pending patient course Nurse practitioner note has been reviewed by physician. Signing provider agrees with the documented findings, assessment, and plan of care documented by [employer] as a scribe. Objective - Vital Signs Vital signs: Vital Signs Temp 97.6 F 09/26/23 09:34 Pulse 97 09/26/23 11:23 Resp 17 09/26/23 11:23 BP 88/55 09/26/23 13:48 Pulse Ox 94 L 09/26/23 11:24 FiO2 Intake & Output 09/25/23 09/26/23 09/26/23 18:59 06:59 18:59 Intake Total 720 180 Output Total 550 550 Balance 170 -550 180 Intake: Oral 720 180 Output: Urine 550 550 Other: Voiding Method Diaper Diaper Diaper Incontinent Incontinent Incontinent External Catheter External Catheter External Catheter - Labs CBC & Chem 7: 09/23/23 07:42 09/24/23 06:29 Labs: Abnormal Lab Results - Last 24 Hours (Table) 09/25/23 09/25/23 09/26/23 Range/Units 16:09 20:18 06:14 POC Glucose (mg/dL) 321 H 335 H 211 H (70-110) mg/dL 09/26/23 Range/Units 11:35 POC Glucose (mg/dL) 149 H (70-110) mg/dL
--- NOTE | 2023-09-26 14:23 | P.PN ---
Subjective Progress Note Date: 09/26/23 Principal diagnosis: Reason for follow-up is abdominal fold and groin fold cutaneous candidiasis Patient is a 73-year-old female with a past medical history significant for diabetes mellitus hypertension hyperlipidemia osteoarthritis and DVT history of recurrent UTIs presenting to the hospital for generalized weakness also noted to have extensive abdominal and groin fold cutaneous candidiasis prompting this consultation. On today's evaluation that is 09/26/2023,the patient denies any fever or any chills, patient is breathing comfortably on room air, the patient denies chest pain shortness of breath and no significant cough, patient denies nausea or vomiting abdominal itching and discomfort has decreased in intensity and no new symptoms. No new labs has been obtained today Objective - Vital Signs Vital signs: Vital Signs Temp 97.6 F 09/26/23 09:34 Pulse 97 09/26/23 11:23 Resp 17 09/26/23 11:23 BP 88/55 09/26/23 13:48 Pulse Ox 94 L 09/26/23 11:24 FiO2 Intake & Output 09/25/23 09/26/23 09/26/23 18:59 06:59 18:59 Intake Total 720 180 Output Total 550 550 Balance 170 -550 180 Intake: Oral 720 180 Output: Urine 550 550 Other: Voiding Method Diaper Diaper Diaper Incontinent Incontinent Incontinent External Catheter External Catheter External Catheter - Exam GENERAL DESCRIPTION: An elderly female lying in bed in no distress RESPIRATORY SYSTEM: Unlabored breathing , decreased breath sounds at bases HEART: S1 S2 regular rate and rhythm , ABDOMEN: Soft , no tenderness EXTREMITIES: No edema feet - Labs CBC & Chem 7: 09/23/23 07:42 09/24/23 06:29 Labs: Abnormal Lab Results - Last 24 Hours (Table) 09/25/23 09/25/23 09/26/23 Range/Units 16:09 20:18 06:14 POC Glucose (mg/dL) 321 H 335 H 211 H (70-110) mg/dL 09/26/23 Range/Units 11:35 POC Glucose (mg/dL) 149 H (70-110) mg/dL Assessment and Plan (1) Candidal intertrigo Current Visit: Yes Status: Acute Code(s): B37.2 - CANDIDIASIS OF SKIN AND NAIL SNOMED Code(s): 000647569 (2) Cutaneous candidiasis Current Visit: No Status: Acute Code(s): B37.2 - CANDIDIASIS OF SKIN AND NAIL SNOMED Code(s): 55932623 Plan: 1patient with extensive abdominal fold as well as groin cutaneous candidiasis without evidence for secondary bacterial cellulitis 2-patient with multiple antibiotic ALLERGIES that would limit the number of antibiotic safe to use 3-patient seem to have some improvement her symptoms and will continue with clotrimazole cream twice a day and monitor clinical course closely Dictation was produced using [employer] dictation software. please excuse any grammatical, word or spelling errors.
[2023-09-26] MEDS: METOPROLOL TARTRATE 50 MG TAB PO SCH (15:19)
[2023-09-26 16:17] LABS: Glucose,Whole Blood 172 mg/dL (70-110)
[2023-09-26 20:12] LABS: Glucose,Whole Blood 181 mg/dL (70-110)
[2023-09-27 06:03] LABS: Glucose,Whole Blood 204 mg/dL (70-110)
[2023-09-27] MEDS: MAGNESIUM OXIDE 400 MG TAB PO SCH (09:24)
[2023-09-27] MEDS: MECLIZINE 25 MG TAB PO PRN (09:24)
[2023-09-27] MEDS: hydrOXYzine pamoate 25 MG CAP PO PRN (09:24)
[2023-09-27 10:02] LABS: African American GFR (CKD) 78 (>60 ml/min/1.73 sqM); Anion Gap 5 mmol/L; Blood Urea Nitrogen 16 mg/dL (7-17); Calcium 8.5 mg/dL (8.4-10.2); Carbon Dioxide 25 mmol/L (22-30); Chloride 109 mmol/L (98-107); Glucose 141 mg/dL (74-99); Non-African American GFR(CKD) 67 (>60 ml/min/1.73 sqM); Potassium 3.7 mmol/L (3.5-5.1); Sodium 139 mmol/L (137-145)
[2023-09-27 11:44] LABS: Glucose,Whole Blood 123 mg/dL (70-110)
--- NOTE | 2023-09-27 14:07 | P.PN ---
Subjective Progress Note Date: 09/27/23 Principal diagnosis: Reason for follow-up is abdominal fold and groin fold cutaneous candidiasis Patient is a 73-year-old female with a past medical history significant for diabetes mellitus hypertension hyperlipidemia osteoarthritis and DVT history of recurrent UTIs presenting to the hospital for generalized weakness also noted to have extensive abdominal and groin fold cutaneous candidiasis prompting this consultation. On today's evaluation that is 09/27/2023,the patient remains to be afebrile, patient is on room air not requiring supplemental oxygen and denies any shortness of breath no chest pain or cough.Patient complaining of some nausea but no vomiting some itching to the abdominal and groin fold but no worsening mention some relief with cream. Patient did have a creatinine of 0.86 Objective - Vital Signs Vital signs: Vital Signs Temp 98.1 F 09/27/23 09:30 Pulse 105 H 09/27/23 09:30 Resp 18 09/27/23 09:30 BP 137/80 09/27/23 09:30 Pulse Ox 92 L 09/27/23 09:30 FiO2 Intake & Output 09/26/23 09/27/23 09/27/23 18:59 06:59 18:59 Intake Total 1320 Output Total 200 250 Balance 1120 -250 Intake: Oral 1320 Output: Urine 200 250 Other: Voiding Method Diaper Diaper Diaper Incontinent Incontinent Incontinent External Catheter External Catheter External Catheter - Exam GENERAL DESCRIPTION: An elderly female lying in bed in no distress RESPIRATORY SYSTEM: Unlabored breathing , decreased breath sounds at bases HEART: S1 S2 regular rate and rhythm , ABDOMEN: Soft , no tenderness EXTREMITIES: No edema feet - Labs CBC & Chem 7: 09/23/23 07:42 09/27/23 08:55 Labs: Abnormal Lab Results - Last 24 Hours (Table) 09/26/23 09/26/23 09/27/23 Range/Units 16:14 20:09 06:01 Chloride (98-107) mmol/L Glucose (74-99) mg/dL POC Glucose (mg/dL) 172 H 181 H 204 H (70-110) mg/dL 09/27/23 09/27/23 Range/Units 08:55 11:40 Chloride 109 H (98-107) mmol/L Glucose 141 H (74-99) mg/dL POC Glucose (mg/dL) 123 H (70-110) mg/dL Assessment and Plan (1) Candidal intertrigo Current Visit: Yes Status: Acute Code(s): B37.2 - CANDIDIASIS OF SKIN AND NAIL SNOMED Code(s): 022697227 (2) Cutaneous candidiasis Current Visit: No Status: Acute Code(s): B37.2 - CANDIDIASIS OF SKIN AND NAIL SNOMED Code(s): 15429450 Plan: 1patient with extensive abdominal fold as well as groin cutaneous candidiasis without evidence for secondary bacterial cellulitis 2-patient with multiple antibiotic ALLERGIES that would limit the number of antibiotic safe to use 3-patient reporting improvement her symptoms and will continue with clotrimazole cream twice a day for about a week on discharge and monitor clinical course closely Dictation was produced using [employer] dictation software. please excuse any grammatical, word or spelling errors. Time with Patient: Less than 30
--- NOTE | 2023-09-27 14:33 | P.PN ---
Subjective Progress Note Date: 09/27/23 HISTORY OF PRESENT ILLNESS: This is a 73-year-old female with a past medical history significant for co ronary artery disease, hypertension, hyperlipidemia, diabetes, obstructive sleep apnea, history of adrenal insufficiency, and valvular heart disease and thoracic aortic aneurysm. Patient follows in the office with Dr. Rosenberg. We have been asked to see the patient in consultation for new onset A-fib. Patient examined at the bedside. Patient states over the past week she has been dealing with episodes of nausea. She states that she has not been eating much for the past week. She states that she has been drinking although she feels like she is dehydrated. She denied having any chest pain or pressure. Denied any shortness of breath. She does report having palpitations. Patient presented to the hospital for further evaluation. Patient was found to be in A-fib with RVR. She denies a history of atrial fibrillation. She remains in atrial fibrillation this morning with a heart rate around 105. DIAGNOSTICS: - EKG reveals A-fib with RVR. - Chest xray hazy opacity over the left lung base could be artifactual. Mild cardiomegaly and chronic lung changes. -Chest CTA: Negative for pulmonary embolism. Cardiomegaly and mild bilateral lower lung edema and/or fibrosis redemonstrated. No new acute pulmonary filtrates seen. - Laboratory data: WBC 5.9. Hemoglobin 10.9. Platelet count 270. D-dimer 2.15. Sodium 140. Potassium 5.3. BUN 17. Creatinine 0.98. Troponin 0.662. 0.585. 0.481. proBNP 4380. - Current home cardiac medications include: Medication list not updated at the time of dictation - Most recent echocardiogram obtained in August 2022 reveals ejection fraction 60%, moderate MR, trace AR, mild TR. - Cardiac catheterization history: 2019 revealing intermediate disease involving the proximal LAD with about 60% with aneurysmal formation 09/24/2023 Patient examined this morning at bedside. Patient denies chest pain or pressure. She denies shortness of breath. She remains in atrial fibrillation with a heart rate around 120. Echocardiogram completed revealing ejection fraction 60 to 65% with mild TR. Blood pressures are soft this morning with a systolic around 100. TSH 2.930. 09/24 Patient states she developed itching this morning around 4 in the morning was started on Benadryl. Telemetry remains atrial fibrillation with rate in the low 100s, blood pressure 144/84, pulse ox 96% on room air. Magnesium 1.8. Metoprolol tartrate currently at 25 mg 3 times daily. 09/25 Heart rate documented 115, blood pressure 100/56, telemetry is showing atrial fibrillation with heart rate in the 90s. Blood pressure has been soft at 89/53, pulse ox 94% on 2 L nasal cannula. 09/26 Yesterday, we increased frequency of metoprolol tartrate 50 mg 3 times daily. Heart rate is running about 100-105, blood pressure 139/82. Telemetry is atrial fibrillation repeat blood work reveals potassium 3.7, BUN 16 creatinine 0.86. No medication changes made today. PHYSICAL EXAM: VITAL SIGNS: Reviewed. GENERAL: Well-developed in no acute distress. HEENT: Head is normocephalic. Pupils are equal, round. Sclerae anicteric. Mucous membranes of the mouth are moist. Neck supple. No JVD or thyromegaly LUNGS: Respirations even and unlabored. Lungs essentially clear to auscultation bilaterally. HEART: Mildly tachycardic. Irregular rate and rhythm. S1 and S2 heard. Systolic murmur noted. ABDOMEN: Soft. Nondistended. Nontender. EXTREMITIES: Normal range of motion. No clubbing or cyanosis. Peripheral pulses intact. No lower extremity edema NEUROLOGIC: Awake and alert. Oriented x 3. ASSESSMENT: Nausea with decreased oral intake x 1 week New onset atrial fibrillation with RVR Elevated troponins, likely type II [place] secondary to A-fib with RVR Coronary artery disease Peripheral vascular disease Valvular heart disease Hypertension Hyperlipidemia Diabetes Obstructive sleep apnea History of adrenal insufficiency History of thoracic aortic aneurysm PLAN: Continue Eliquis 5 mg twice a day Continue metoprolol tartrate 50 mg 3 times daily Continue telemetry monitoring Further recommendations pending patient course Nurse practitioner note has been reviewed by physician. Signing provider agrees with the documented findings, assessment, and plan of care documented by [employer] as a scribe. Objective - Vital Signs Vital signs: Vital Signs Temp 98.1 F 09/27/23 09:30 Pulse 105 H 09/27/23 09:30 Resp 18 09/27/23 09:30 BP 137/80 09/27/23 09:30 Pulse Ox 92 L 09/27/23 09:30 FiO2 Intake & Output 09/26/23 09/27/23 09/27/23 18:59 06:59 18:59 Intake Total 1320 Output Total 200 250 Balance 1120 -250 Intake: Oral 1320 Output: Urine 200 250 Other: Voiding Method Diaper Diaper Diaper Incontinent Incontinent Incontinent External Catheter External Catheter External Catheter - Labs CBC & Chem 7: 09/23/23 07:42 09/27/23 08:55 Labs: Abnormal Lab Results - Last 24 Hours (Table) 09/26/23 09/26/23 09/26/23 Range/Units 11:35 16:14 20:09 Chloride (98-107) mmol/L Glucose (74-99) mg/dL POC Glucose (mg/dL) 149 H 172 H 181 H (70-110) mg/dL 09/27/23 09/27/23 Range/Units 06:01 08:55 Chloride 109 H (98-107) mmol/L Glucose 141 H (74-99) mg/dL POC Glucose (mg/dL) 204 H (70-110) mg/dL
--- NOTE | 2023-09-27 14:55 | P.PN ---
Subjective Progress Note Date: 09/27/23 Melissa Pena is a 72 yo F with PMH of adrenal insufficiency, T2DM, chronic neck pain, migraine admitted with new onset atrial fibrillation with RVR, elevated troponins, nausea and multiple other medical issues. Telemetry reporting atrial fibrillation, heart rates in the 1 teens. Denies chest pain, palpitations. Reports increased shortness of breath with lying flat. Maintaining O2 sats in the 90s on room air. evaluated by cardiology, continues on anticoagulation with Eliquis, metoprolol. Magnesium 1.8 clotrimazole cream as per infectious disease for extensive cutaneous candidiasis. 09/26/23 telemetry atrial fibrillation, heart rates ranging in the 90s to 1 teens. Metoprolol dose increased as per cardiology. Denies chest pain, palpitations or increased shortness of breath. Maintaining O2 sats in the 90s on 2 L nasal cannula. Afebrile. Tolerating diet. Chronic nausea, no emesis .hyperglycemic, blood sugars improving. Hemoglobin A1c 7.5. Denies lightheadedness dizziness or focal deficits, denies headache. Objective - Vital Signs Vital signs: Vital Signs Temp 98.0 F 09/26/23 15:14 Pulse 101 H 09/26/23 15:14 Resp 15 09/26/23 15:14 BP 143/64 09/26/23 15:14 Pulse Ox 97 09/26/23 15:14 FiO2 Intake & Output 09/25/23 09/26/23 09/26/23 18:59 06:59 18:59 Intake Total 720 180 Output Total 550 550 Balance 170 -550 180 Intake: Oral 720 180 Output: Urine 550 550 Other: Voiding Method Diaper Diaper Diaper Incontinent Incontinent Incontinent External Catheter External Catheter External Catheter - Exam Vitals reviewed General: Alert and oriented x 3, sitting up in bed, NAD HEENT: Normocephalic, atraumatic, mucus membranes moist Neck: supple, no JVD CV: Regular rate and rhythm, tachycardic, positive systolic murmur, pulses 2+ Lungs: Unlabored, equal air entry, no wheezes or rales Abd: soft, nondistended, decreased abdominal and groin fold excoriation, chaffing, positive bowel sounds present Neuro: Alert and oriented x3, no focal deficit Skin: warm and dry - Labs CBC & Chem 7: 09/23/23 07:42 09/27/23 08:55 Labs: Abnormal Lab Results - Last 24 Hours (Table) 09/25/23 09/25/23 09/26/23 Range/Units 16:09 20:18 06:14 POC Glucose (mg/dL) 321 H 335 H 211 H (70-110) mg/dL 09/26/23 Range/Units 11:35 POC Glucose (mg/dL) 149 H (70-110) mg/dL Assessment and Plan Assessment: New onset atrial fibrillation with RVR Elevated troponins, suspect related to the above Extensive abdominal folds, groin, cutaneous candidiasis without evidence for secondary bacterial cellulitis. Infectious disease following. Nausea, decreased oral intake x 1 week, resolved CAD chronic recurrent UTI, Klebsiella pneumoniae and Enterobacter Cloacae with resistance, S/P Invanz, transitioned to oral cipro. History of MRSA infection, anaphylactic reaction to vancomycin Chronic cervical radiculopathy, improved pain, recent fusion C4 C5 C6, June 2022 Chronic left shoulder pain ,patient reports since OR. Chronic migraines Covid, June 2021 Diabetes type 2 on insulin pump, hyperglycemic- steroid induced, A1c 8.7, currently off pump Diabetic neuropathy Thoracic aortic aneurysm, outpatient monitoring Hypertension, history of Hyperlipidemia Osteoarthritis History of DVT Obstructive sleep apnea on CPAP at home History of nephrolithiasis Summers's disease /Adrenal insufficiency on hydrocortisone. 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 Anticoagulated on Eliquis. Antiarrhythmics as per cardiology- metoprolol increased. PT/OT. The impression and plan of care has been dictated as directed. : I performed a history and examination of this patient, discussed the same with the dictator. I agree with the dictator's note ,documented as a scribe. Any additional findings or plans will be noted.
--- NOTE | 2023-09-27 15:04 | P.PN ---
Subjective Progress Note Date: 09/27/23 Melissa Pena is a 72 yo F with PMH of adrenal insufficiency, T2DM, chronic neck pain, migraine admitted with new onset atrial fibrillation with RVR, elevated troponins, nausea and multiple other medical issues. Telemetry reporting atrial fibrillation, heart rates in the 1 teens. Denies chest pain, palpitations. Reports increased shortness of breath with lying flat. Maintaining O2 sats in the 90s on room air. evaluated by cardiology, continues on anticoagulation with Eliquis, metoprolol. Magnesium 1.8 clotrimazole cream as per infectious disease for extensive cutaneous candidiasis. 09/26/23 telemetry atrial fibrillation, heart rates ranging in the 90s to 1 teens. Metoprolol dose increased as per cardiology. Denies chest pain, palpitations or increased shortness of breath. Maintaining O2 sats in the 90s on 2 L nasal cannula. Afebrile. Tolerating diet. Chronic nausea, no emesis .hyperglycemic, blood sugars improving. Hemoglobin A1c 7.5. Denies lightheadedness dizziness or focal deficits, denies headache. 09/27/2023 waking up, wore her CPAP throughout the night. Reports rash is itchy, not relieved with Benadryl. States she slept most of the day has not been out of bed yet. Attempted PT yesterday-reevaluation pending. Reports no bowel movement over the last 2 days. Metoprolol increased yesterday, softer blood pressures throughout the day, improved this morning. denies chest pain, palpitations or increased shortness of breath. Objective - Vital Signs Vital signs: Vital Signs Temp 98.1 F 09/27/23 09:30 Pulse 105 H 09/27/23 09:30 Resp 18 09/27/23 09:30 BP 137/80 09/27/23 09:30 Pulse Ox 92 L 09/27/23 09:30 FiO2 Intake & Output 09/26/23 09/27/23 09/27/23 18:59 06:59 18:59 Intake Total 1320 Output Total 200 250 Balance 1120 -250 Intake: Oral 1320 Output: Urine 200 250 Other: Voiding Method Diaper Diaper Diaper Incontinent Incontinent Incontinent External Catheter External Catheter External Catheter - Exam Vitals reviewed General: Alert and oriented x 3, sitting up in bed, NAD HEENT: Normocephalic, atraumatic, mucus membranes moist Neck: supple, no JVD CV: Regular rate and rhythm, tachycardic, positive systolic murmur, pulses 2+ Lungs: Unlabored, equal air entry, no wheezes or rales Abd: soft, nondistended, decreased abdominal and groin fold excoriation, chaffing, positive bowel sounds present Neuro: Alert and oriented x3, no focal deficit Skin: warm and dry - Labs CBC & Chem 7: 09/23/23 07:42 09/27/23 08:55 Labs: Abnormal Lab Results - Last 24 Hours (Table) 09/26/23 09/26/23 09/27/23 Range/Units 16:14 20:09 06:01 Chloride (98-107) mmol/L Glucose (74-99) mg/dL POC Glucose (mg/dL) 172 H 181 H 204 H (70-110) mg/dL 09/27/23 09/27/23 Range/Units 08:55 11:40 Chloride 109 H (98-107) mmol/L Glucose 141 H (74-99) mg/dL POC Glucose (mg/dL) 123 H (70-110) mg/dL Assessment and Plan Assessment: New onset atrial fibrillation with RVR Elevated troponins, suspect related to the above Extensive abdominal folds, groin, cutaneous candidiasis without evidence for secondary bacterial cellulitis. Infectious disease following. Chronic nausea CAD chronic recurrent UTI, Klebsiella pneumoniae and Enterobacter Cloacae with resistance, S/P Invanz, transitioned to oral cipro. History of MRSA infection, anaphylactic reaction to vancomycin Chronic cervical radiculopathy, improved pain, recent fusion C4 C5 C6, June 2022 Chronic left shoulder pain ,patient reports since OR. Chronic migraines Covid, June 2021 Diabetes type 2 on insulin pump, hyperglycemic- steroid induced, A1c 8.7, currently off pump Diabetic neuropathy Thoracic aortic aneurysm, outpatient monitoring Hypertension, history of Hyperlipidemia Osteoarthritis History of DVT Obstructive sleep apnea on CPAP at home History of nephrolithiasis Drasco's disease /Adrenal insufficiency on hydrocortisone. 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 MiraLAX scheduled. Benadryl discontinued, Vistaril added to med regimen for itchiness. anticoagulated on Eliquis. Follow closely with cardiology. PT/OT. [facility] at discharge. The impression and plan of care has been dictated as directed. : I performed a history and examination of this patient, discussed the same with the dictator. I agree with the dictator's note ,documented as a scribe. Any additional findings or plans will be noted.
[2023-09-27] MEDS: BUTALB/APAP/CAFF 50-325-40MG TAB PO PRN (15:21)
[2023-09-27] MEDS: POTASSIUM CHLORIDE ER 20 MEQ TAB.ER PO STA (15:22)
[2023-09-27 16:30] LABS: Glucose,Whole Blood 193 mg/dL (70-110)
[2023-09-27] MEDS: polyethylene glycoL 3350 17 GM POWD.PACK PO SCH (17:07)
[2023-09-27 20:29] LABS: Glucose,Whole Blood 297 mg/dL (70-110)
[2023-09-27 20:55] VITALS: RESP 18
[2023-09-27] MEDS ORDERED: NON FORMULARY DRUG (Potassium [Potassium] 99 MG Tablet) PO SCH (21:00)
[2023-09-28 05:59] LABS: Glucose,Whole Blood 205 mg/dL (70-110)
[2023-09-28] MEDS ORDERED: DEXTROSE 50% SYRINGE 50 ML IVP PRN ×2 (09:09)
[2023-09-28 11:33] LABS: Glucose,Whole Blood 100 mg/dL (70-110)
--- NOTE | 2023-09-28 12:06 | P.DS ---
Providers Date of admission: 09/22/23 22:59 Expected date of discharge: 09/28/23 Attending physician: Andrew Gonsales MD Consults: 09/22/23 22:57 Consult Physician Routine Consulting Provider: [facility] Consult Reason/Comments: afib with rvr, nstemi Do you want consulting provider notified?: Yes 09/24/23 12:09 Consult Physician Routine Consulting Provider: Chalino Osman Consult Reason/Comments: intertrigo/cellulitis Do you want consulting provider notified?: Yes Primary care physician: Andrew Gonsales MD Hospital Course: Final Diagnoses: New onset atrial fibrillation with RVR, spontaneously converted Elevated troponins, suspect related to the above Extensive abdominal folds, groin, cutaneous candidiasis without evidence for secondary bacterial cellulitis. Infectious disease following. Chronic nausea CAD chronic recurrent UTI, Klebsiella pneumoniae and Enterobacter Cloacae with resistance, S/P Invanz, transitioned to oral cipro. History of MRSA infection, anaphylactic reaction to vancomycin Chronic cervical radiculopathy, improved pain, recent fusion C4 C5 C6, June 2022 Chronic left shoulder pain ,patient reports since OR. Chronic migraines Covid, June 2021 Diabetes type 2 on insulin pump, hyperglycemic- steroid induced, A1c 8.7, currently off pump-resume at discharge Diabetic neuropathy Thoracic aortic aneurysm, outpatient monitoring Hypertension, history of Hyperlipidemia Osteoarthritis History of DVT Obstructive sleep apnea on CPAP at home History of nephrolithiasis Campbellton's disease /Adrenal insufficiency on hydrocortisone. 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 Telemetry reporting atrial fibrillation, heart rates in the 1 teens. Denies chest pain, palpitations. Reports increased shortness of breath with lying flat. Maintaining O2 sats in the 90s on room air. evaluated by cardiology, continues on anticoagulation with Eliquis, metoprolol. Magnesium 1.8 clotrimazole cream as per infectious disease for extensive cutaneous candidiasis. 09/26/23 telemetry atrial fibrillation, heart rates ranging in the 90s to 1 teens. Metoprolol dose increased as per cardiology. Denies chest pain, palpitations or increased shortness of breath. Maintaining O2 sats in the 90s on 2 L nasal cannula. Afebrile. Tolerating diet. Chronic nausea, no emesis .hyperglycemic, blood sugars improving. Hemoglobin A1c 7.5. Denies lightheadedness dizziness or focal deficits, denies headache. 09/27/2023 waking up, wore her CPAP throughout the night. Reports rash is itchy, not relieved with Benadryl. States she slept most of the day has not been out of bed yet. Attempted PT yesterday-reevaluation pending. Reports no bowel movement over the last 2 days. Metoprolol increased yesterday, softer blood pressures throughout the day, improved this morning. denies chest pain, palpitations or increased shortness of breath. 09/28/2023 significant clinical improvement. Heart rate better controlled. anticoagulated on Eliquis. Maintaining O2 sats in the low 90s on 2 L nasal cannula. Blood sugars trending from 120s to 297. MiraLAX scheduled yesterday, positive bowel movement last night. Complaining of tremors when up standing and participating with PT. Appears to be deconditioned tremor versus med induced as patient has no resting tremors or tremors while sitting, performing tasks. Patient was concerned that possibly her BuSpar might be causing it, offered to discontinue it but patient felt more comfortable with decreasing dose. Denies chest pain, palpitations or increase in shortness of breath. Denies lightheadedness, dizziness or focal deficit. Cleared by cardiology for discharge. Patient will be discharged to [facility] subacute rehab today in a stable condition with guarded prognosis. The impression and plan of care has been dictated as directed. : I performed a history and examination of this patient, discussed the same with the dictator. I agree with the dictator's note ,documented as a scribe. Any additional findings or plans will be noted. Patient Condition at Discharge: Stable Plan - Discharge Summary Discharge Rx Participant: No New Discharge Prescriptions: New busPIRone HCl [Buspar] 5 mg PO BID tab Atorvastatin [Lipitor] 40 mg PO HS tab polyethylene glycoL 3350 [Miralax] 17 gm PO DAILY packet hydrOXYzine pamoate [Vistaril] 25 mg PO Q8HR PRN cap PRN Reason: Itching Apixaban [Eliquis] 5 mg PO BID tab Metoprolol Tartrate [Lopressor] 50 mg PO TID tab Clotrimazole Cream [Lotrimin Cream] 1 applic TOPICAL BID each Acetaminophen Tab [Tylenol] 650 mg PO Q6HR PRN tab PRN Reason: Mild Pain Or Fever > 100.5 Continue Meclizine [Antivert] 25 mg PO QID PRN PRN Reason: Vertigo Aspirin 81 mg PO DAILY #0 Vitamin B-Complex Drops 1 drop PO BID Thiamine [Vitamin B-1] 100 mg PO HS L.acidoph,Paracasei, B.lactis [Probiotic] 2 cap PO DAILY Melatonin 5 mg PO HS PRN PRN Reason: Insomnia C,E,Zinc,Copper 11/Buedo0o/Lut [Ocuvite Adult 50 Plus Softgel] 1 cap PO HS Brimonidine Tartrate [Alphagan P 0.2% Ophth Soln] 1 drop RIGHT EYE BID Pantoprazole Sodium [Protonix] 40 mg PO HS Dorzolamide 2% [Trusopt 2%] 1 drop RIGHT EYE BID Cephalexin [Keflex] 250 mg PO HS Ondansetron [Zofran] 4 mg PO Q6H PRN PRN Reason: Nausea Hydrocortisone [Cortef] 15 mg PO QAM Folic Acid 800mcg With Folate 1333mg 1 tab PO HS buPROPion XL [Wellbutrin XL] 300 mg PO DAILY Promethazine [Phenergan] 25 mg PO QID PRN PRN Reason: Nausea Iron 27mg 27 mg PO HS Glucagon [Gvoke Pfs 1-Pack Syringe] 1 mg SQ ONCE PRN PRN Reason: severe hypoglycemia Insulin Aspart (For Pump) [NovoLOG (For Pump)] 0.01 unit SQ-PUMP CONTINUOUS Multivit-Min/Folic Acid/Gmq673 [Alive Premium Adult Multivit] 1 tab PO DAILY Cranberry Fruit Extract [Cranberry] 500 mg PO BID Butalb/APAP/Caff 50-325-40Mg [Fioricet 50-325-40] 1 tab PO Q6H PRN #12 tab PRN Reason: Migraine Headache Insulin Aspart [NovoLOG Flexpen] See Protocol SQ ACHS PRN PRN Reason: if pump failure Dhea 50mg With B-12 2500mcg 1 tab PO HS Hydrocortisone [Cortef] 10 mg PO BID@1200,2000 Magnesium Oxide [Mag-Ox] 400 mg PO BID Turmeric Complex 550mg 550 mg PO HS Gabapentin [Neurontin] 300 mg PO TID #9 cap HYDROcodone/APAP 10-325MG [Callaway 10-325] 1 tab PO Q6H PRN #12 tab PRN Reason: Pain Discontinued Potassium 99 mg PO HS Spironolactone 50 mg PO DAILY lisinopriL [Zestril] 30 mg PO DAILY Nystatin 100,000Unit/gm Cream [Mycostatin Cream] 1 applic TOPICAL DIRECTED PRN PRN Reason: Rash busPIRone HCl [Buspar] 10 mg PO TID Rosuvastatin Calcium [Crestor] 5 mg PO HS hydroCHLOROthiazide [Hydrodiuril] 25 mg PO DAILY Metoprolol Succinate (ER) [Toprol XL] 100 mg PO HS Discharge Medication List Meclizine [Antivert] 25 mg PO QID PRN 11/26/17 [History] Aspirin 81 mg PO DAILY #0 07/02/18 [Rx] L.acidoph,Paracasei, B.lactis [Probiotic] 2 cap PO DAILY 10/08/18 [History] Melatonin 5 mg PO HS PRN 10/08/18 [History] Thiamine [Vitamin B-1] 100 mg PO HS 10/08/18 [History] Vitamin B-Complex Drops 1 drop PO BID 10/08/18 [History] C,E,Zinc,Copper 11/Bxpsl7d/Lut [Ocuvite Adult 50 Plus Softgel] 1 cap PO HS 06/25/20 [History] Brimonidine Tartrate [Alphagan P 0.2% Ophth Soln] 1 drop RIGHT EYE BID 11/26/20 [History] Glucagon [Gvoke Pfs 1-Pack Syringe] 1 mg SQ ONCE PRN 11/26/20 [History] Pantoprazole Sodium [Protonix] 40 mg PO HS 11/26/20 [History] Insulin Aspart (For Pump) [NovoLOG (For Pump)] 0.01 unit SQ-PUMP CONTINUOUS 03/03/21 [History] Cranberry Fruit Extract [Cranberry] 500 mg PO BID 05/25/22 [History] Dorzolamide 2% [Trusopt 2%] 1 drop RIGHT EYE BID 05/25/22 [History] Multivit-Min/Folic Acid/Zew428 [Alive Premium Adult Multivit] 1 tab PO DAILY 05/25/22 [History] Cephalexin [Keflex] 250 mg PO HS 09/04/22 [History] Butalb/APAP/Caff 50-325-40Mg [Fioricet 50-325-40] 1 tab PO Q6H PRN #12 tab 09/06/22 [Rx] Dhea 50mg With B-12 2500mcg 1 tab PO HS 04/27/23 [History] Folic Acid 800mcg With Folate 1333mg 1 tab PO HS 04/27/23 [History] Hydrocortisone [Cortef] 15 mg PO QAM 04/27/23 [History] Insulin Aspart [NovoLOG Flexpen] See Protocol SQ ACHS PRN 04/27/23 [History] Ondansetron [Zofran] 4 mg PO Q6H PRN 04/27/23 [History] Hydrocortisone [Cortef] 10 mg PO BID@1200,2000 09/20/23 [History] Magnesium Oxide [Mag-Ox] 400 mg PO BID 09/20/23 [History] Promethazine [Phenergan] 25 mg PO QID PRN 09/20/23 [History] buPROPion XL [Wellbutrin XL] 300 mg PO DAILY 09/20/23 [History] Iron 27mg 27 mg PO HS 09/23/23 [History] Turmeric Complex 550mg 550 mg PO HS 09/23/23 [History] Acetaminophen Tab [Tylenol] 650 mg PO Q6HR PRN tab 09/28/23 [Rx] Apixaban [Eliquis] 5 mg PO BID tab 09/28/23 [Rx] Atorvastatin [Lipitor] 40 mg PO HS tab 09/28/23 [Rx] Clotrimazole Cream [Lotrimin Cream] 1 applic TOPICAL BID each 09/28/23 [Rx] Gabapentin [Neurontin] 300 mg PO TID #9 cap 09/28/23 [Rx] HYDROcodone/APAP 10-325MG [Callaway 10-325] 1 tab PO Q6H PRN #12 tab 09/28/23 [Rx] Metoprolol Tartrate [Lopressor] 50 mg PO TID tab 09/28/23 [Rx] busPIRone HCl [Buspar] 5 mg PO BID tab 09/28/23 [Rx] hydrOXYzine pamoate [Vistaril] 25 mg PO Q8HR PRN cap 09/28/23 [Rx] polyethylene glycoL 3350 [Miralax] 17 gm PO DAILY packet 09/28/23 [Rx] Follow up Appointment(s)/Referral(s): Andrew Gonsales MD [Primary Care Provider] - 1 Week (After DC from subacute rehab) Activity/Diet/Wound Care/Special Instructions: [facility] subacute rehab have bring in insulin pump/supplies and apply CBC, BMP in 3 days CPAP at night and during naps Consistent carb/heart healthy diet Discharge Disposition: TRANSFER TO SNF/ECF
[2023-09-28] MEDS: INSULIN ASPART (NovoLOG) 100 UNIT/ML VIAL SQ SCH (12:45)
--- NOTE | 2023-09-28 12:59 | P.PN ---
Subjective Progress Note Date: 09/28/23 HISTORY OF PRESENT ILLNESS: This is a 73-year-old female with a past medical history significant for co ronary artery disease, hypertension, hyperlipidemia, diabetes, obstructive sleep apnea, history of adrenal insufficiency, and valvular heart disease and thoracic aortic aneurysm. Patient follows in the office with Dr. Rosenberg. We have been asked to see the patient in consultation for new onset A-fib. Patient examined at the bedside. Patient states over the past week she has been dealing with episodes of nausea. She states that she has not been eating much for the past week. She states that she has been drinking although she feels like she is dehydrated. She denied having any chest pain or pressure. Denied any shortness of breath. She does report having palpitations. Patient presented to the hospital for further evaluation. Patient was found to be in A-fib with RVR. She denies a history of atrial fibrillation. She remains in atrial fibrillation this morning with a heart rate around 105. DIAGNOSTICS: - EKG reveals A-fib with RVR. - Chest xray hazy opacity over the left lung base could be artifactual. Mild cardiomegaly and chronic lung changes. -Chest CTA: Negative for pulmonary embolism. Cardiomegaly and mild bilateral lower lung edema and/or fibrosis redemonstrated. No new acute pulmonary filtrates seen. - Laboratory data: WBC 5.9. Hemoglobin 10.9. Platelet count 270. D-dimer 2.15. Sodium 140. Potassium 5.3. BUN 17. Creatinine 0.98. Troponin 0.662. 0.585. 0.481. proBNP 4380. - Current home cardiac medications include: Medication list not updated at the time of dictation - Most recent echocardiogram obtained in August 2022 reveals ejection fraction 60%, moderate MR, trace AR, mild TR. - Cardiac catheterization history: 2019 revealing intermediate disease involving the proximal LAD with about 60% with aneurysmal formation 09/24/2023 Patient examined this morning at bedside. Patient denies chest pain or pressure. She denies shortness of breath. She remains in atrial fibrillation with a heart rate around 120. Echocardiogram completed revealing ejection fraction 60 to 65% with mild TR. Blood pressures are soft this morning with a systolic around 100. TSH 2.930. 09/24 Patient states she developed itching this morning around 4 in the morning was started on Benadryl. Telemetry remains atrial fibrillation with rate in the low 100s, blood pressure 144/84, pulse ox 96% on room air. Magnesium 1.8. Metoprolol tartrate currently at 25 mg 3 times daily. 09/25 Heart rate documented 115, blood pressure 100/56, telemetry is showing atrial fibrillation with heart rate in the 90s. Blood pressure has been soft at 89/53, pulse ox 94% on 2 L nasal cannula. 09/26 Yesterday, we increased frequency of metoprolol tartrate 50 mg 3 times daily. Heart rate is running about 100-105, blood pressure 139/82. Telemetry is atrial fibrillation repeat blood work reveals potassium 3.7, BUN 16 creatinine 0.86. No medication changes made today. 09/27 Patient denies new complaints. She is in a sinus rhythm. Heart rate is 60s, BP 131/67, PO 98% on 2L n/c. PHYSICAL EXAM: VITAL SIGNS: Reviewed. GENERAL: Well-developed in no acute distress. HEENT: Head is normocephalic. Pupils are equal, round. Sclerae anicteric. Mucous membranes of the mouth are moist. Neck supple. No JVD or thyromegaly LUNGS: Respirations even and unlabored. Lungs essentially clear to auscultation bilaterally. HEART: Regular rate and rhythm. S1 and S2 heard. Systolic murmur noted. ABDOMEN: Soft. Nondistended. Nontender. EXTREMITIES: Normal range of motion. No clubbing or cyanosis. Peripheral pulses intact. No lower extremity edema NEUROLOGIC: Awake and alert. Oriented x 3. ASSESSMENT: Nausea with decreased oral intake x 1 week New onset atrial fibrillation with RVR Elevated troponins, likely type II IL secondary to A-fib with RVR Coronary artery disease Peripheral vascular disease Valvular heart disease Hypertension Hyperlipidemia Diabetes Obstructive sleep apnea History of adrenal insufficiency History of thoracic aortic aneurysm PLAN: Continue Eliquis 5 mg twice a day Continue metoprolol tartrate 50 mg 3 times daily Patient is cleared for discharge from cardiology and may follow up in the office in 1-2 weeks. Nurse practitioner note has been reviewed by physician. Signing provider agrees with the documented findings, assessment, and plan of care documented by IRON CASTER as a scribe. Objective - Vital Signs Vital signs: Vital Signs Temp 98.1 F 09/28/23 04:21 Pulse 64 09/28/23 04:21 Resp 18 09/28/23 04:21 BP 139/79 09/28/23 04:21 Pulse Ox 91 L 09/28/23 04:21 FiO2 Intake & Output 09/27/23 09/28/23 09/28/23 18:59 06:59 18:59 Intake Total 720 Output Total 400 Balance 720 -400 Intake: Oral 720 Output: Urine 400 Other: Voiding Method Diaper Diaper Incontinent Incontinent External Catheter External Catheter # Bowel Movements 1 - Labs CBC & Chem 7: 09/23/23 07:42 09/27/23 08:55 Labs: Abnormal Lab Results - Last 24 Hours (Table) 09/27/23 09/27/23 09/27/23 Range/Units 08:55 11:40 16:28 Chloride 109 H (98-107) mmol/L Glucose 141 H (74-99) mg/dL POC Glucose (mg/dL) 123 H 193 H (70-110) mg/dL 09/27/23 09/28/23 Range/Units 20:27 05:58 Chloride (98-107) mmol/L Glucose (74-99) mg/dL POC Glucose (mg/dL) 297 H 205 H (70-110) mg/dL
[2023-09-28 13:41] VITALS: BP 109/64; PULSE 53; TEMP 98.3
[2023-09-28 15:03] VITALS: BMI 28.3
[2023-09-28 16:40] LABS: Glucose,Whole Blood 133 mg/dL (70-110)
[2023-09-28] MEDS ORDERED: INSULIN DETEMIR (LEVEMIR) 100 UNIT/ML SYR SQ SCH (21:00)
[2023-09-28] MEDS ORDERED: busPIRone HCl 5 MG TAB PO SCH (21:00)
--- NOTE | 2023-09-29 12:11 | P.PN ---
Subjective Progress Note Date: 09/28/23 Principal diagnosis: Reason for follow-up is abdominal fold and groin fold cutaneous candidiasis Patient is a 73-year-old female with a past medical history significant for diabetes mellitus hypertension hyperlipidemia osteoarthritis and DVT history of recurrent UTIs presenting to the hospital for generalized weakness also noted to have extensive abdominal and groin fold cutaneous candidiasis prompting this consultation. On today's evaluation that is 09/28/2023, the patient continues to be afebrile, the patient is on 2 L nasal cannula oxygen and breathing comfortably, the Pt denies having any chest pain or cough, the patient abdominal fold and groin area discomfort has decreased in intensity some nausea but no vomiting did have some diarrhea after lactulose. No new labs has been repeated today Objective - Vital Signs Vital signs: Vital Signs Temp 98 F 09/28/23 08:30 Pulse 62 09/28/23 08:30 Resp 18 09/28/23 08:30 BP 131/67 09/28/23 08:30 Pulse Ox 98 09/28/23 08:30 FiO2 Intake & Output 09/27/23 09/28/23 09/28/23 18:59 06:59 18:59 Intake Total 720 Output Total 400 Balance 720 -400 Intake: Oral 720 Output: Urine 400 Other: Voiding Method Diaper Diaper Diaper Incontinent Incontinent Incontinent External Catheter External Catheter External Catheter # Voids 1 # Bowel Movements 1 2 - Exam GENERAL DESCRIPTION: An elderly female lying in bed in no distress RESPIRATORY SYSTEM: Unlabored breathing , decreased breath sounds at bases HEART: S1 S2 regular rate and rhythm , ABDOMEN: Soft , no tenderness EXTREMITIES: No edema feet - Labs CBC & Chem 7: 09/23/23 07:42 09/27/23 08:55 Labs: Abnormal Lab Results - Last 24 Hours (Table) 09/27/23 09/27/23 09/28/23 Range/Units 16:28 20:27 05:58 POC Glucose (mg/dL) 193 H 297 H 205 H (70-110) mg/dL Assessment and Plan (1) Candidal intertrigo Status: Acute Code(s): B37.2 - CANDIDIASIS OF SKIN AND NAIL SNOMED Code(s): 562109650 (2) Cutaneous candidiasis Status: Acute Code(s): B37.2 - CANDIDIASIS OF SKIN AND NAIL SNOMED Code(s): 53341439 Plan: 1patient with extensive abdominal fold as well as groin cutaneous candidiasis without evidence for secondary bacterial cellulitis 2-patient with multiple antibiotic ALLERGIES that would limit the number of antibiotic safe to use 3-patient seem to have transumbilical movement and while l continue with clotrimazole cream twice a day for about a week on discharge and close outpatient follow-up Dictation was produced using [employer] dictation software. please excuse any grammatical, word or spelling errors. Time with Patient: Less than 30
== END 2023-09-28 18:27 | DRG 281 ==
LOC: EC 19:21 → 3SCARD 22:59
PROVIDERS: ADMIT Family Medicine; ATTEND Family Medicine
DX: I48.91 Unspecified atrial fibrillation (principal); E27.1 Primary adrenocortical insufficiency; I21.A1 Myocardial infarction type 2; L03.314 Cellulitis of groin; N39.0 Urinary tract infection, site not specified; I25.10 Atherosclerotic heart disease of native coronary artery without angina pectoris; E11.51 Type 2 diabetes mellitus with diabetic peripheral angiopathy without gangrene; I10 Essential (primary) hypertension; E78.5 Hyperlipidemia, unspecified; I71.20 Thoracic aortic aneurysm, without rupture, unspecified; G47.33 Obstructive sleep apnea (adult) (pediatric); I95.9 Hypotension, unspecified; B37.2 Candidiasis of skin and nail; Z87.442 Personal history of urinary calculi; R53.1 Weakness; E11.42 Type 2 diabetes mellitus with diabetic polyneuropathy; F32.A Depression, unspecified; G89.29 Other chronic pain; J44.89 Other specified chronic obstructive pulmonary disease; M19.90 Unspecified osteoarthritis, unspecified site; L30.4 Erythema intertrigo; M79.7 Fibromyalgia; M54.81 Occipital neuralgia; T38.0X5A Adverse effect of glucocorticoids and synthetic analogues, initial encounter; Z79.01 Long term (current) use of anticoagulants; Z79.82 Long term (current) use of aspirin; Z79.899 Other long term (current) drug therapy; Z82.49 Family history of ischemic heart disease and other diseases of the circulatory system; Z86.14 Personal history of Methicillin resistant Staphylococcus aureus infection; Z87.440 Personal history of urinary (tract) infections; Z88.1 Allergy status to other antibiotic agents; Z86.718 Personal history of other venous thrombosis and embolism; Z90.710 Acquired absence of both cervix and uterus; Z96.41 Presence of insulin pump (external) (internal); Z79.4 Long term (current) use of insulin; I08.3 Combined rheumatic disorders of mitral, aortic and tricuspid valves; R00.0 Tachycardia, unspecified; X58.XXXA Exposure to other specified factors, initial encounter; M50.122 Cervical disc disorder at C5-C6 level with radiculopathy; B96.1 Klebsiella pneumoniae [K. pneumoniae] as the cause of diseases classified elsewhere; B96.89 Other specified bacterial agents as the cause of diseases classified elsewhere; Z88.0 Allergy status to penicillin; Z88.5 Allergy status to narcotic agent; Z88.2 Allergy status to sulfonamides
CPT/HCPCS: 36415; 71046; 71275; 74177; 80048; 80053; 81003; 82009; 83036; 83605; 83735; 83880; 84443; 84484; 85025; 85379; 85610; 85730; 87636; 93005; 93306; 96361; 96374; 96375; 99291

== ENCOUNTER 2024-03-10 05:14 | Observation (INO) | payer MEDICARE, BC ==
[2024-03-10] MEDS: HYDROmorphone 1 MG/ML 1 ML SYRINGE IVP STA (06:01)
[2024-03-10] MEDS ORDERED: MAG HYDROX/AL HYDROX/SIMETH 30 ML CUP PO PRN (06:28)
[2024-03-10] MEDS ORDERED: ACETAMINOPHEN TAB 325 MG TAB PO PRN (06:28)
[2024-03-10] MEDS ORDERED: CALCIUM CARBONATE 500 MG CHEWABLE PO PRN (06:28)
[2024-03-10] MEDS ORDERED: NALOXONE 0.4 MG/ML 1 ML VIAL IV PRN (06:28)
[2024-03-10] MEDS ORDERED: BUTALB/APAP/CAFF 50-325-40MG TAB PO PRN (06:30)
[2024-03-10] MEDS ORDERED: MECLIZINE 25 MG TAB PO PRN (06:30)
--- NOTE | 2024-03-10 06:36 | ED ---
Abdominal Pain HPI - General Chief Complaint: Abdominal Pain Stated Complaint: GI,NVD Time Seen by Provider: 03/10/24 05:17 Source: patient Mode of arrival: EMS Limitations: no limitations - History of Present Illness Initial Comments: Patient is a 73-year-old female with past medical history of Marcel's disease presenting today for as a transfer from [facility] for enterocolitis. She had presented there for severe abdominal pain that began in her epigastrium and radiated around to her right side that began around 5:00 last night. She esparza d 2 episodes of nonbloody nonbilious emesis. No diarrhea black or bloody stools. No fevers. No chest pain or shortness of breath. Has had a prior appendectomy. CT abdomen pelvis performed at transferring facility showed enteric colitis. No obstruction or perforation. Patient states Dilaudid controls her pain. Has an allergy to morphine. Pain has returned though en brought to our ED. Patient endorses earlier states is improving. - Related Data Home Medications Medication Instructions Recorded Confirmed Meclizine [Antivert] 25 mg PO QID PRN 11/26/17 09/23/23 L.acidoph,Paracasei, B.lactis 2 cap PO DAILY 10/08/18 09/23/23 [Probiotic] Melatonin 5 mg PO HS PRN 10/08/18 09/23/23 Thiamine [Vitamin B-1] 100 mg PO HS 10/08/18 09/23/23 Vitamin B-Complex Drops 1 drop PO BID 10/08/18 09/23/23 C,E,Zinc,Copper 11/Rbczg3e/Lut 1 cap PO HS 06/25/20 09/23/23 [Ocuvite Adult 50 Plus Softgel] Brimonidine Tartrate [Alphagan P 1 drop RIGHT EYE BID 11/26/20 09/23/23 0.2% Ophth Soln] Glucagon [Gvoke Pfs 1-Pack Syringe] 1 mg SQ ONCE PRN 11/26/20 09/23/23 Pantoprazole Sodium [Protonix] 40 mg PO HS 11/26/20 09/23/23 Insulin Aspart (For Pump) [NovoLOG 0.01 unit SQ-PUMP CONTINUOUS 03/03/21 09/23/23 (For Pump)] Cranberry Fruit Extract [Cranberry] 500 mg PO BID 05/25/22 09/23/23 Dorzolamide 2% [Trusopt 2%] 1 drop RIGHT EYE BID 05/25/22 09/23/23 Multivit-Min/Folic Acid/Hyx909 1 tab PO DAILY 05/25/22 09/23/23 [Alive Premium Adult Multivit] Cephalexin [Keflex] 250 mg PO HS 09/04/22 09/23/23 Dhea 50mg With B-12 2500mcg 1 tab PO HS 04/27/23 09/23/23 Folic Acid 800mcg With Folate 1 tab PO HS 04/27/23 09/23/23 1333mg Hydrocortisone [Cortef] 15 mg PO QAM 04/27/23 09/23/23 Insulin Aspart [NovoLOG Flexpen] See Protocol SQ ACHS PRN 04/27/23 09/23/23 Ondansetron [Zofran] 4 mg PO Q6H PRN 04/27/23 09/23/23 Hydrocortisone [Cortef] 10 mg PO BID@1200,2000 09/20/23 09/23/23 Magnesium Oxide [Mag-Ox] 400 mg PO BID 09/20/23 09/23/23 Promethazine [Phenergan] 25 mg PO QID PRN 09/20/23 09/23/23 buPROPion XL [Wellbutrin XL] 300 mg PO DAILY 09/20/23 09/23/23 Iron 27mg 27 mg PO HS 09/23/23 09/23/23 Turmeric Complex 550mg 550 mg PO HS 09/23/23 09/23/23 Previous Rx's Medication Instructions Recorded Aspirin 81 mg PO DAILY #0 07/02/18 Butalb/APAP/Caff 50-325-40Mg 1 tab PO Q6H PRN #12 tab 09/06/22 [Fioricet 50-325-40] Acetaminophen Tab [Tylenol] 650 mg PO Q6HR PRN tab 09/28/23 Apixaban [Eliquis] 5 mg PO BID tab 09/28/23 Atorvastatin [Lipitor] 40 mg PO HS tab 09/28/23 Clotrimazole Cream [Lotrimin Cream] 1 applic TOPICAL BID each 09/28/23 Gabapentin [Neurontin] 300 mg PO TID #9 cap 09/28/23 HYDROcodone/APAP 10-325MG [[place] 1 tab PO Q6H PRN #12 tab 09/28/23 10-325] Metoprolol Tartrate [Lopressor] 50 mg PO TID tab 09/28/23 busPIRone HCl [Buspar] 5 mg PO BID tab 09/28/23 hydrOXYzine pamoate [Vistaril] 25 mg PO Q8HR PRN cap 09/28/23 polyethylene glycoL 3350 [Miralax] 17 gm PO DAILY packet 09/28/23 Allergies Allergy/AdvReac Type Severity Reaction Status Date / Time butorphanol tartrate Allergy BLISTERS Verified 03/10/24 05:25 [From Stadol] IN MOUTH ceftriaxone [From Rocephin] Allergy Rash/Hives Verified 03/10/24 05:25 clarithromycin [From Biaxin] Allergy Rash/Hives Verified 03/10/24 05:25 clindamycin Allergy Rash/Hives Verified 03/10/24 05:25 codeine Allergy Rash/Hives Verified 03/10/24 05:25 ergotamine tartrate Allergy Rash/Hives Verified 03/10/24 05:25 [From Cafergot] erythromycin base Allergy RASH, GI Verified 03/10/24 05:25 [From E-Mycin] SYMPTOMS ketorolac tromethamine Allergy Rash/Hives Verified 03/10/24 05:25 [From Toradol] liraglutide [From Victoza] Allergy Rash/Hives Verified 03/10/24 05:25 morphine Allergy Rash/Hives Verified 03/10/24 05:25 Penicillins Allergy Rash/Hives Verified 03/10/24 05:25 on upper body pentazocine lactate Allergy SEVERE Verified 03/10/24 05:25 [From Talwin] BLISTERS IN MOUTH pregabalin [From Lyrica] Allergy Rash/Hives Verified 03/10/24 05:25 propoxyphene HCl Allergy Rash/Hives Verified 03/10/24 05:25 [From Darvon] Sulfa (Sulfonamide Allergy Rash/Hives Verified 03/10/24 05:25 Antibiotics) sulfamethoxazole Allergy Rash/Hives Verified 03/10/24 05:25 [From Bactrim] tizanidine Allergy Unknown Verified 03/10/24 05:25 tramadol Allergy Unknown Verified 03/10/24 05:25 trimethoprim [From Bactrim] Allergy Rash/Hives Verified 03/10/24 05:25 vancomycin Allergy lip Verified 03/10/24 05:25 swelling metoclopramide [From Reglan] AdvReac Hallucinati Verified 03/10/24 05:25 ons monosodium glutamate [MSG] AdvReac Nausea & Verified 03/10/24 05:25 Vomiting nalbuphine HCl [From Nubain] AdvReac Nausea & Verified 03/10/24 05:25 Vomiting Review of Systems ROS Statement: Those systems with pertinent positive or pertinent negative responses have been documented in the HPI. ROS Other: All systems not noted in ROS Statement are negative. Past Medical History Past Medical History: Atrial Fibrillation, Diabetes Mellitus, Deep Vein Thrombosis (DVT), Fibromyalgia, Hyperlipidemia, Hypertension, Osteoarthritis (OA), Pneumonia, Renal Disease, Sleep Apnea/CPAP/BIPAP, Vascular Disorder Additional Past Medical History / Comment(s): Pt recently admitted to [facility] with R flank pain and UTI 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, DVT R calf in 1976, cardiac murmur, occipital neuraligia, balance issues-has narrowing of vessels "in the back of my head", vertigo, varicosities, states rt shoulder torn rotator cuff History of Any Multi-Drug Resistant Organisms: ESBL, MRSA, VRE Date of last positivie culture/infection: 11/25/20 ESBL;12/06/19 VRE; 03/10/11 MRSA MDRO Source:: Urine ESBL; Urine-VRE: MRSA 4th Right TOE Past Surgical History: Appendectomy, Back Surgery, Bladder Surgery, Breast Surgery, Cholecystectomy, Heart Catheterization, Hysterectomy, Orthopedic Surgery, Tonsillectomy Additional Past Surgical History / Comment(s): Lumbar fusions, bladder suspension, occipital nerve blocks, 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, R wrist/elbow nerve repair, bone removed R shoulder, 4th toe R foot partial amputation, bilateral feet/bunionectomies, R knee arthroscopies, R orbit decompression with ethmoidectomy and eyelid lift, EGD, colonoscopies, cystocopies, lithotripsy/stents, bilateral breast reduction, bilateral cataract removals, parathyroid surgery - April 2019, pain clinic procedures Past Anesthesia/Blood Transfusion Reactions: No Reported Reaction Additional Past Anesthesia/Blood Transfusion Reaction / Comment(s): never recieved blood Past Psychological History: Depression Smoking Status: Never smoker Past Alcohol Use History: Occasional Past Drug Use History: None Reported - Past Family History Father Family Medical History: Coronary Artery Disease (CAD), CVA/TIA, Diabetes Mellitus, Myocardial Infarction (UT), Pneumonia Additional Family Medical History / Comment(s): Father at the age of 78yrs from UT and pneumonia. Mother Family Medical History: Cancer, Congestive Heart Failure (CHF) Additional Family Medical History / Comment(s): Mother had uterine cancer. She recently at the age of 96yrs old from shingles. General Exam - General Exam Comments Initial Comments: PE: CONSTITUTIONAL: No apparent distress, well appearing SKIN: Warm, dry, no jaundice, hives or petechiae EYES: Pupils are equally round, extraocular movements intact without nystagmus, clear conjunctiva, non-icteric sclera HENT: Normocephalic, atraumatic, dry mucus membranes, oropharynx clear without exudates NECK: , Full range of motion, normal appearance PULMONARY: Clear to auscultation without wheezes, rhonchi, or rales, normal excursion, no accessory muscle use and no stridor CARDIOVASCULAR: Regular rate, rhythm, normal S1 and S2. No appreciated murmurs, rubs or gallops. Strong radial pulses with intact distal perfusion. No lower e xtremity edema GASTROINTESTINAL: Soft, non-tender, mildly distended, no palpable masses, no rebound or guarding. No hepatosplenomegaly MUSCULOSKELETAL: Extremities have no gross deformity, no edema, redness, or swelling. NEUROLOGIC:_a/o x 3, GCS 15, normal mentation and speech. Moves all extremities x 4 without motor or sensory deficit PSYCHIATRIC:_normal mood and affect, thought process is clear and linear Limitations: no limitations Course Vital Signs 03/10/24 05:18 Temperature 98.3 F Pulse Rate 90 Respiratory 17 Rate Blood Pressure 129/59 O2 Sat by Pulse 94 L Oximetry Medical Decision Making - Medical Decision Making Was pt. sent in by a medical professional or institution (, PA, INVESTIGATOR UTILITY BILL COMPLAINTS, urgent care, hospital, or alf...) When possible be specific @ -Patient was transferred from [facility] Did you speak to anyone other than the patient for history (EMS, parent, family, police, friend...)? What history was obtained from this source @ -I did speak with transferring physician, Dr. White, regarding plans for transfer for enterocolitis in setting of Marcel's disease Did you review nursing and triage notes (agree or disagree)? Why? @ -I reviewed and agree with nursing and triage notes Were old charts reviewed (outside hosp., previous admission, EMS record, old EKG, old radiological studies, urgent care reports/EKG's, alf records)? Report findings @ -Reviewed paperwork sent with patient from transferring facility, CT of the abdomen pelvis was performed which showed scattered air-fluid levels throughout the small and large bowel loops without significant wall thickening, mesenteric inflammation or obstruction, possible mild, diffuse infectious or inflammatory enterocolitis no free air or significant free fluid and bilateral nonobstructing nephrolithiasis, C. difficile testing was negative lipase 20, magnesium 1.9, sodium 141, potassium 4.1, creatinine 1.3, GFR 45, amylase 53, lactic 2.8, white blood cell count 14.2, hemoglobin 10.4, patient given 400 mg ciprofloxacin, Dilaudid for pain control, Pepcid, Pepcid 125 mg of Solu-Medrol, 4 mg Zofran x 2, Compazine. Differential Diagnosis (chest pain, altered mental status, abdominal pain women, abdominal pain men, vaginal bleeding, weakness, fever, dyspnea, syncope, headache, dizziness, GI bleed, back pain, seizure, CVA, palpatations, mental health, musculoskeletal)? @ -Differential dx remains broad however top considerations include ent erocolitis, colitis, diverticuliits, SBO, volvulus, constipation, this is not all inclusive list. Pt had extensive workup at transferring facility that was signfiicant for enterocolitis and symptoms have not worsened/ changed since her presentation there, therefor do not feel additional imaging indicated to further evaluate for the above. X-rays interpreted by me (1pt min.). @ -None done CT interpreted by me (1pt min.). @ -None done U/S interpreted by me (1pt. min.). @ -None done What testing was considered but not performed or refused? (CT, X-rays, U/S, labs)? Why? @ -None What meds were considered but not given or refused? Why? @ -None Did you discuss the management of the patient with other professionals (professionals i.e. STEPHANY Rodriguez, INVESTIGATOR UTILITY BILL COMPLAINTS, lab, RT, psych nurse, nephrology social worker, inspector air carrier, teacher, correctional security officer, rifle case repairer)? Give summary @ -No Was smoking cessation discussed for >3mins.? @ -No Was critical care preformed (if so, how long)? @ -No Were there social determinants of health that impacted care today? How? (Homelessness, low income, unemployed, alcoholism, drug addiction, transportation, low edu. Level, literacy, decrease access to med. care, shelter, rehab)? @ -No Was there de-escalation of care discussed even if they declined (Discuss DNR or withdrawal of care, Hospice)? @ -No What co-morbidities impacted this encounter? (DM, HTN, Smoking, COPD, CAD, Cancer, CVA, ARF, Chemo, Hep., AIDS, mental health diagnosis, sleep apnea, morbid obesity)? @ -Floyd's disease Was patient admitted / discharged? Hospital course, mention meds given and route, prescriptions, significant lab abnormalities, going to OR and other pertinent info. @ -Hospital course admitted- Pt is a pleasant 73-year-old female past medical history Floyd's disease, atrial fibrillation on Eliquis, prior DVT, hypertension, hyperlipidemia presenting as a transfer from outside facility for enterocolitis. Labs, imaging report and notes from transferring facility reviewed on patient arrival. On my assessment patient is well-appearing and in no acute distress. Mucous membranes dry, otherwise lungs are clear to auscultation bilaterally, abdomen is soft and nontender minimally distended. Patient requesting ice chips and further pain control. Pain initially proved with Dilaudid though has returned. Pain control ordered. Repeat a basic labs to ensure no drop in patient's sodium levels. A nticipate admission. Discussed case with STEPHANY Hay with [facility], kindly accepts for admission. Admission orders placed. Pt admitted in stable condition. Undiagnosed new problem with uncertain prognosis? @ -No Drug Therapy requiring intensive monitoring for toxicity (Heparin, Nitro, Insulin, Cardizem)? @ -No Were any procedures done? @ -No Diagnosis/symptom? @ -Enteriocolitis Acute, or Chronic, or Acute on Chronic? @ -Acute Uncomplicated (without systemic symptoms) or Complicated (systemic symptoms)? @ -Complicated Side effects of treatment? @ -No Exacerbation, Progression, or Severe Exacerbation? @ -No Poses a threat to life or bodily function? How? (Chest pain, USA, UT, pneumonia, PE, COPD, DKA, ARF, appy, cholecystitis, CVA, Diverticulitis, Homicidal, Suicidal, threat to staff... and all critical care pts) @ -Unlikely Disposition Clinical Impression: Enterocolitis Disposition: ADMITTED IP TO THIS HOSP Condition: Good
[2024-03-10 07:32] LABS: Basophils # (A) 0.1 k/uL (0-0.2); Basophils % (A) 0 %; Eosinophils % (A) 0 %; HCT 33.7 % (34.0-46.0); Hypochromasia Marked; Lymphocytes # (A) 0.8 k/uL (1.0-4.8); Lymphocytes % (A) 5 %; MCH 25.4 pg (25.0-35.0); MCHC 29.6 g/dL (31.0-37.0); MCV 85.9 fL (80.0-100.0); Mean Platelet Volume 7.5; Monocytes # (A) 0.4 k/uL (0-1.0); Monocytes % (A) 3 %; Neutrophils # (A) 14.3 k/uL (1.3-7.7); Neutrophils % (A) 91 %; Platelet Count 355 k/uL (150-450); RBC 3.92 m/uL (3.80-5.40); RDW 15.5 % (11.5-15.5); WBC 15.7 k/uL (3.8-10.6)
[2024-03-10 07:48] LABS: Glucose,Whole Blood 273 mg/dL (70-110)
[2024-03-10] MEDS: INSULIN ASPART (NovoLOG) 100 UNIT/ML VIAL SQ SCH (07:50)
[2024-03-10 08:07] LABS: ALT 13 U/L (4-34); AST 22 U/L (14-36); African American GFR (CKD) 48 (>60 ml/min/1.73 sqM); Albumin 3.8 g/dL (3.5-5.0); Alkaline Phosphatase 65 U/L (38-126); Anion Gap 9 mmol/L; Blood Urea Nitrogen 29 mg/dL (7-17); Calcium 8.9 mg/dL (8.4-10.2); Carbon Dioxide 19 mmol/L (22-30); Chloride 106 mmol/L (98-107); Glucose 246 mg/dL (74-99); Non-African American GFR(CKD) 42 (>60 ml/min/1.73 sqM); Potassium 5.8 mmol/L (3.5-5.1); Sodium 134 mmol/L (137-145); Total Bilirubin 0.4 mg/dL (0.2-1.3); Total Protein 5.8 g/dL (6.3-8.2)
[2024-03-10] MEDS: HYDROmorphone 1 MG/ML 1 ML SYRINGE IVP PRN (09:22)
[2024-03-10] MEDS: APIXABAN 5 MG TAB PO SCH (09:26)
[2024-03-10] MEDS: busPIRone HCl 5 MG TAB PO SCH (09:26)
[2024-03-10] MEDS: ASPIRIN 81 MG PO SCH (09:26)
[2024-03-10] MEDS: buPROPion XL 300 MG TAB.ER.24H PO SCH (10:26)
[2024-03-10] MEDS: HYDROCORTISONE 10 MG TAB PO SCH (10:26)
[2024-03-10] MEDS ORDERED: HYDROCORTISONE 10 MG TAB PO SCH (12:00)
[2024-03-10 12:17] LABS: Glucose,Whole Blood 302 mg/dL (70-110)
[2024-03-10] MEDS: SODIUM CHLORIDE 0.9% 1,000 ML IV SCH (12:29)
[2024-03-10] MEDS: HYDROCORTISONE SUCCINATE 100 MG/2 ML VIAL IV SCH (12:29)
[2024-03-10] MEDS ORDERED: MELATONIN 5 MG TABLET PO PRN (13:07)
[2024-03-10 13:46] LABS: African American GFR (CKD) 44 (>60 ml/min/1.73 sqM); Anion Gap 8 mmol/L; Blood Urea Nitrogen 33 mg/dL (7-17); Calcium 8.6 mg/dL (8.4-10.2); Carbon Dioxide 20 mmol/L (22-30); Chloride 105 mmol/L (98-107); Glucose 279 mg/dL (74-99); Non-African American GFR(CKD) 38 (>60 ml/min/1.73 sqM); Potassium 5.8 mmol/L (3.5-5.1); Sodium 133 mmol/L (137-145)
[2024-03-10] MEDS: Insulin Aspart (For Pump) 100 UNIT/ML VIAL SQ-PUMP SCH (14:45)
[2024-03-10] MEDS: SCOPOLAMINE 1 MG/72 HR PATCH TRANSDERM SCH (14:45)
[2024-03-10] MEDS: DORZOLAMIDE HCL 2% DROPS 10 ML BTL RIGHT EYE SCH (14:51)
[2024-03-10] MEDS: LEVOFLOXACIN 500MG-D5W PMX 500 MG in DEXTROSE/WATER 1 100ML.BAG IVPB SCH (14:52)
[2024-03-10] MEDS: BRIMONIDINE TARTRATE 0.2% DROPS 5 ML BTL RIGHT EYE SCH (14:52)
[2024-03-10] MEDS: busPIRone HCl 10 MG TAB PO SCH (14:57)
[2024-03-10 17:27] LABS: Glucose,Whole Blood 301 mg/dL (70-110)
[2024-03-10] MEDS: FOLIC ACID 1 MG TAB PO SCH (20:22)
[2024-03-10] MEDS: ARIPiprazole 10 MG TAB PO SCH (20:22)
[2024-03-10] MEDS: ATORVASTATIN 10 MG TAB PO SCH (20:23)
[2024-03-10] MEDS: THIAMINE 100 MG TAB PO SCH (20:23)
[2024-03-10] MEDS: PANTOPRAZOLE 40 MG TABLET PO SCH (20:23)
[2024-03-10] MEDS: MAGNESIUM OXIDE 400 MG TAB PO SCH (20:23)
[2024-03-10] MEDS: METOPROLOL SUCCINATE (ER) 100 MG TAB.ER.24H PO SCH (20:24)
[2024-03-10] MEDS: VIT A,C & E-LUTEIN-MINERALS 1 EACH TAB PO SCH (20:24)
[2024-03-10] MEDS: HYDROmorphone 0.5 MG/0.5 ML SYRINGE IVP PRN (20:31)
[2024-03-10] MEDS ORDERED: NON FORMULARY DRUG (Potassium Gluconate [Potassium Gluconate] 99 MG Tablet) PO SCH (21:00)
[2024-03-10 21:02] LABS: Glucose,Whole Blood 269 mg/dL (70-110)
[2024-03-10] MEDS: LACTOBACILLUS ACIDOPHILUS/PECT 1 EACH CAPSULE PO SCH (21:18)
--- NOTE | 2024-03-10 23:46 | HP ---
HISTORY AND PHYSICAL CHIEF COMPLAINT: Nausea and diarrhea and abdominal pain. HISTORY OF PRESENT ILLNESS: This is a 73-year-old woman with a past medical history of multiple medical problems including [place]'s disease, was transferred from [facility]. The patient apparently ate some Turkish food last night. The patient developed abdominal pain, which radiated to the back and some diarrhea, nausea; and the patient admitted for evaluation and treatment. The CT scan from the outside showed enterocolitis. There is no history of any fever, rigors, chills. No history of any obstruction. The also ate Turkish, but ate a different type of menu and he is not sick. PAST MEDICAL HISTORY: Atrial fibrillation, DVT. Rest of the chart is also reviewed. HOME MEDICATIONS: Reviewed, include Zofran. ALLERGIES: There are multiple allergies including penicillin, reviewed. FAMILY HISTORY: History of CHF in the family. SOCIAL HISTORY: No history of smoking. REVIEW OF SYSTEMS: Fourteen-point review of systems negative, except as mentioned earlier. PHYSICAL EXAMINATION: VITAL SIGNS: Pulse is 93, blood pressure 112/69, respirations 18. HEENT: Conjunctivae normal. NECK: No JVD. CARDIOVASCULAR: S1, S2. RESPIRATIONS: Breath sounds diminished at the bases. Exophthalmos present. ABDOMEN: Soft, obese, mild diffuse discomfort. No guarding. No rigidity. No mass. LEGS: No edema. NERVOUS SYSTEM: Nonfocal. LABORATORY DATA: Reviewed. ASSESSMENT: 1. Acute gastroenteritis with dehydration. 2. Nausea, vomiting, diarrhea; possibly acute enterocolitis. 3. Severe abdominal pain. 4. History of [place]'s disease. 5. Atrial fibrillation. 6. Diabetes mellitus, type 2. 7. Deep venous thrombosis. 8. History of pneumonia. 9. History of urinary tract infections. 10.Acute renal failure. 11.Hyperkalemia. 12.Elevated WBC. 13.Diabetes mellitus, type 2. RECOMMENDATIONS: This 73-year-old woman presented with multiple medical issues. We will monitor the patient closely. I would recommend empiric antibiotics and IV steroids. Resume the home medications and symptomatic treatment. Cautious IV fluids. Repeat laboratories. Guarded prognosis because of multiple complex medical issues. We will resume the home medications also. See orders for details. Dr. Gonsales will follow tomorrow. MMTRUDIL / SAMN: [id number] /
[2024-03-11] MEDS: HYDROcodone/APAP 10-325MG 1 EACH TAB PO PRN (02:46)
[2024-03-11 05:49] LABS: Glucose,Whole Blood 328 mg/dL (70-110)
[2024-03-11] MEDS: ONDANSETRON 4 MG/2 ML VIAL IVP PRN (06:03)
[2024-03-11 08:02] VITALS: BP 127/72; PULSE 72; RESP 17; TEMP 98.2
[2024-03-11 08:40] LABS: Basophils # (A) 0.01 X 10*3/uL (0.00-0.10); Basophils % (A) 0.1 %; Eosinophils # (A) 0.01 X 10*3/uL (0.04-0.35); Eosinophils % (A) 0.1 %; HCT 27.6 % (37.2-46.3); HGB 8.1 g/dL (12.0-15.0); Lymphocytes # (A) 0.73 X 10*3/uL (0.90-5.00); Lymphocytes % (A) 7.3 %; MCH 25.5 pg (27.0-32.0); MCHC 29.3 g/dL (32.0-37.0); MCV 86.8 FL (80.0-97.0); Mean Platelet Volume 10.5 FL (9.5-12.2); Monocytes # (A) 0.68 X 10*3/uL (0.20-1.00); Monocytes % (A) 6.8 %; NRBC Per 100 WBC 0 X 10*3/uL (0.00-0.01); Neutrophils # (A) 8.46 X 10*3/uL (1.80-7.70); Neutrophils % (A) 84.5 %; Platelet Count 274 X 10*3/uL (140-440); RBC 3.18 X 10*6/uL (4.10-5.20); RDW 15.3 % (11.5-14.5); WBC 10.01 X 10*3/uL (4.50-10.00)
[2024-03-11 09:04] LABS: BUN/Creat Ratio 28.08 Ratio (12.00-20.00); Blood Urea Nitrogen 33.7 mg/dL (9.0-27.0); Calcium 8.5 mg/dL (8.7-10.3); Carbon Dioxide 20.5 mmol/L (21.6-31.8); Chloride 100 mmol/L (96-109); Glucose 322 mg/dL (70-110); Potassium 4.8 mmol/L (3.5-5.5); Sodium 133 mmol/L (135-145)
[2024-03-11] MEDS: SCOPOLAMINE 1 MG/72 HR PATCH TRANSDERM SCH (09:06)
[2024-03-11] MEDS: SPIRONOLACTONE 25 MG TAB PO SCH (09:16)
[2024-03-11 12:16] LABS: Glucose,Whole Blood 251 mg/dL (70-110)
[2024-03-12] MEDS ORDERED: LEVOFLOXACIN 250 MG TAB PO SCH (09:00)
--- NOTE | 2024-03-13 17:29 | P.DS ---
Providers Date of admission: 03/10/24 06:34 Expected date of discharge: 03/11/24 Attending physician: Andrew Gonsales MD Primary care physician: Andrew Gonsales MD Hospital Course: Final Diagnoses: Acute gastroenteritis with dehydration Nausea, vomiting, diarrhea, cramping abdominal pain, possibly acute enterocolitis Leukocytosis secondary to the above, improving Acute renal failure secondary to the above History of [place]'s disease Chronic atrial fibrillation Diabetes mellitus type II History of recurrent UTIs This is a pleasant 73-year-old female with past medical history significant for multiple medical issues including [place]'s disease transferred from [facility] with nausea, vomiting, diarrhea, cramping abdominal pain after consuming [place] food the evening before for dinner. Imaging performed at [facility] reported as showing enterocolitis. Maintained on IV fluid hydration, empiric antibiotics and IV steroids with significant clinical improvement. Afebrile, WBC has normalized. Diarrhea has subsided. No further nausea or vomiting. patient hungry, asked for diet advancement. Advance to full liquids, tolerated well. Denies chest pain, palpitations or shortness of breath. Denies lightheadedness, dizziness or focal deficits. Patient will be discharged home today in a stable condition with guarded prognosis, on Levaquin and probiotics. The impression and plan of care has been dictated as directed. : I performed a history and examination of this patient, discussed the same with the dictator. I agree with the dictator's note ,documented as a scribe. Any additional findings or plans will be noted. Patient Condition at Discharge: Stable Plan - Discharge Summary New Discharge Prescriptions: New Levofloxacin [Levaquin] 500 mg PO DAILY 5 Days #5 tab Continue Meclizine [Antivert] 25 mg PO BID PRN PRN Reason: Vertigo Vitamin B-Complex Drops 1 drop PO BID Thiamine [Vitamin B-1] 100 mg PO HS L.acidoph,Paracasei, B.lactis [Probiotic] 1 cap PO BID Melatonin 5 mg PO HS PRN PRN Reason: Insomnia C,E,Zinc,Copper 11/Hmwuo3c/Lut [Ocuvite Adult 50 Plus Softgel] 1 cap PO HS Brimonidine Tartrate [Alphagan P 0.2% Ophth Soln] 1 drop RIGHT EYE BID Pantoprazole Sodium [Protonix] 40 mg PO BID Dorzolamide 2% [Trusopt 2%] 1 drop RIGHT EYE BID Ondansetron [Zofran] 4 mg PO TID PRN PRN Reason: Nausea And Vomiting Hydrocortisone [Cortef] 15 mg PO DAILY Folic Acid 800mcg With Folate 1333mg 1 tab PO HS buPROPion XL [Wellbutrin XL] 300 mg PO DAILY Iron 27mg 27 mg PO HS busPIRone HCl [Buspar] 10 mg PO TID Scopolamine [Scopolamine 1 MG/72 HR patch] 1 patch TRANSDERM Q72H Metoprolol Succinate [Toprol XL] 100 mg PO HS ARIPiprazole [Abilify] 10 mg PO HS Potassium Gluconate 99 mg PO HS Insulin Aspart (For Pump) [NovoLOG (For Pump)] 0.01 unit SQ-PUMP CONTINUOUS Multivit-Min/Folic Acid/Xch900 [Alive Premium Adult Multivit] 1 tab PO DAILY Cranberry Fruit Extract [Cranberry] 500 mg PO BID Butalb/APAP/Caff 50-325-40Mg [Fioricet 50-325-40] 1 tab PO Q6H PRN #12 tab PRN Reason: Migraine Headache Dhea 50mg With B-12 2500mcg 1 tab PO HS Hydrocortisone [Cortef] 10 mg PO BID@1200,2000 Magnesium Oxide [Mag-Ox] 400 mg PO BID Turmeric Complex 550mg 550 mg PO HS Apixaban [Eliquis] 5 mg PO BID tab Acetaminophen Tab [Tylenol] 650 mg PO Q6HR PRN tab PRN Reason: Mild Pain Or Fever > 100.5 HYDROcodone/APAP 10-325MG [Garner 10-325] 1 tab PO Q6H PRN #12 tab PRN Reason: Pain Spironolactone [Aldactone] 50 mg PO DAILY Rosuvastatin Calcium [Crestor] 5 mg PO HS lisinopriL [Zestril] 30 mg PO DAILY #0 Discharge Medication List Meclizine [Antivert] 25 mg PO BID PRN 11/26/17 [History] L.acidoph,Paracasei, B.lactis [Probiotic] 1 cap PO BID 10/08/18 [History] Melatonin 5 mg PO HS PRN 10/08/18 [History] Thiamine [Vitamin B-1] 100 mg PO HS 10/08/18 [History] Vitamin B-Complex Drops 1 drop PO BID 10/08/18 [History] C,E,Zinc,Copper 11/Vngjc7z/Lut [Ocuvite Adult 50 Plus Softgel] 1 cap PO HS 06/25/20 [History] Brimonidine Tartrate [Alphagan P 0.2% Ophth Soln] 1 drop RIGHT EYE BID 11/26/20 [History] Pantoprazole Sodium [Protonix] 40 mg PO BID 11/26/20 [History] Insulin Aspart (For Pump) [NovoLOG (For Pump)] 0.01 unit SQ-PUMP CONTINUOUS 03/03/21 [History] Cranberry Fruit Extract [Cranberry] 500 mg PO BID 05/25/22 [History] Dorzolamide 2% [Trusopt 2%] 1 drop RIGHT EYE BID 05/25/22 [History] Multivit-Min/Folic Acid/Pcm685 [Alive Premium Adult Multivit] 1 tab PO DAILY 05/25/22 [History] Butalb/APAP/Caff 50-325-40Mg [Fioricet 50-325-40] 1 tab PO Q6H PRN #12 tab 09/06/22 [Rx] Dhea 50mg With B-12 2500mcg 1 tab PO HS 04/27/23 [History] Folic Acid 800mcg With Folate 1333mg 1 tab PO HS 04/27/23 [History] Hydrocortisone [Cortef] 15 mg PO DAILY 04/27/23 [History] Ondansetron [Zofran] 4 mg PO TID PRN 04/27/23 [History] Hydrocortisone [Cortef] 10 mg PO BID@1200,2000 09/20/23 [History] Magnesium Oxide [Mag-Ox] 400 mg PO BID 09/20/23 [History] buPROPion XL [Wellbutrin XL] 300 mg PO DAILY 09/20/23 [History] Iron 27mg 27 mg PO HS 09/23/23 [History] Turmeric Complex 550mg 550 mg PO HS 09/23/23 [History] Acetaminophen Tab [Tylenol] 650 mg PO Q6HR PRN tab 09/28/23 [Rx] Apixaban [Eliquis] 5 mg PO BID tab 09/28/23 [Rx] HYDROcodone/APAP 10-325MG [Garner 10-325] 1 tab PO Q6H PRN #12 tab 09/28/23 [Rx] ARIPiprazole [Abilify] 10 mg PO HS 03/10/24 [History] Metoprolol Succinate [Toprol XL] 100 mg PO HS 03/10/24 [History] Potassium Gluconate 99 mg PO HS 03/10/24 [History] Rosuvastatin Calcium [Crestor] 5 mg PO HS 03/10/24 [History] Scopolamine [Scopolamine 1 MG/72 HR patch] 1 patch TRANSDERM Q72H 03/10/24 [History] Spironolactone [Aldactone] 50 mg PO DAILY 03/10/24 [History] busPIRone HCl [Buspar] 10 mg PO TID 03/10/24 [History] Levofloxacin [Levaquin] 500 mg PO DAILY 5 Days #5 tab 03/11/24 [Rx] lisinopriL [Zestril] 30 mg PO DAILY #0 03/11/24 [Rx] Follow up Appointment(s)/Referral(s): Andrew Gonsales MD [Primary Care Provider] - 3 Days [facility], [NON-STAFF] - As Needed Ambulatory/Diagnostic Orders: Complete Blood Count w/diff [LAB.AMB] Time Frame: 3 Days, Location: None Selected Patient Instructions/Handouts: Colitis (ED) Activity/Diet/Wound Care/Special Instructions: FOLLOW UP DIRECTED, SOONER FOR WORSENING SYMPTOMS, PROBLEMS, OR CONCERNS. Discharge Disposition: HOME SELF-CARE
== END 2024-03-11 15:40 | disposition home or self-care (01) ==
LOC: EC 05:14 → 6NMEDSUR 06:34
PROVIDERS: ADMIT Family Medicine; ATTEND Family Medicine
DX: K52.9 Noninfective gastroenteritis and colitis, unspecified (principal); N17.9 Acute kidney failure, unspecified; E86.0 Dehydration; E87.5 Hyperkalemia; E27.1 Primary adrenocortical insufficiency; I48.91 Unspecified atrial fibrillation; I10 Essential (primary) hypertension; E78.5 Hyperlipidemia, unspecified; E11.9 Type 2 diabetes mellitus without complications; N20.0 Calculus of kidney; Z79.82 Long term (current) use of aspirin; Z79.01 Long term (current) use of anticoagulants; Z79.4 Long term (current) use of insulin; Z79.899 Other long term (current) drug therapy; Z96.41 Presence of insulin pump (external) (internal); Z88.5 Allergy status to narcotic agent; Z88.0 Allergy status to penicillin; Z88.2 Allergy status to sulfonamides; Z88.1 Allergy status to other antibiotic agents; Z88.8 Allergy status to other drugs, medicaments and biological substances; Z91.02 Food additives allergy status; Z86.718 Personal history of other venous thrombosis and embolism; Z90.49 Acquired absence of other specified parts of digestive tract; Z87.01 Personal history of pneumonia (recurrent); Z87.440 Personal history of urinary (tract) infections
CPT/HCPCS: 80048; 80053; 85025; 87040; 96365; 96375; 96376; 99284

== ENCOUNTER → 2024-09-02 | Outpatient (CLI) | payer MEDICARE, BC ==
[2024-09-02 20:41] LABS: HCT 41.9 % (37.2-46.3); HGB 13.5 g/dL (12.0-15.0); MCH 30.5 pg (27.0-32.0); MCHC 32.2 g/dL (32.0-37.0); MCV 94.6 FL (80.0-97.0); Mean Platelet Volume 11.4 FL (9.5-12.2); NRBC Per 100 WBC 0 X 10*3/uL (0.00-0.01); Platelet Count 250 X 10*3/uL (140-440); RBC 4.43 X 10*6/uL (4.10-5.20); WBC 10.41 X 10*3/uL (4.50-10.00)
[2024-09-02 21:13] LABS: % Iron Saturation 15.79 (12.00-45.00); ALT 10 U/L (8-44); AST 15 U/L (13-35); Albumin 4.2 g/dL (3.8-4.9); Albumin/Globulin Ratio 1.91 Ratio (1.60-3.17); Alkaline Phosphatase 81 U/L (41-126); BUN/Creat Ratio 26.33 Ratio (12.00-20.00); Blood Urea Nitrogen 23.7 mg/dL (9.0-27.0); Carbon Dioxide 21.2 mmol/L (21.6-31.8); Chloride 105 mmol/L (96-109); Globulin 2.2 g/dL (1.6-3.3); Glucose 276 mg/dL (70-110); Iron 78 UG/DL (50-170); Potassium 4.1 mmol/L (3.5-5.5); Sodium 140 mmol/L (135-145); Total Bilirubin <0.2 mg/dL (0.3-1.2); Total Iron Binding Capacity 494 UG/DL (228-460); Total Protein 6.4 g/dL (6.2-8.2)
== END | disposition home or self-care (01) ==
LOC: LABWHC1 13:40
PROVIDERS: ATTEND Physician Assistant Medical
DX: E11.22 Type 2 diabetes mellitus with diabetic chronic kidney disease (principal); I12.9 Hypertensive chronic kidney disease with stage 1 through stage 4 chronic kidney disease, or unspecified chronic kidney disease; E66.3 Overweight; D50.9 Iron deficiency anemia, unspecified; N18.9 Chronic kidney disease, unspecified
CPT/HCPCS: 36415; 80053; 83036; 83540; 83550; 84443; 85027

== ENCOUNTER → 2024-09-04 | Outpatient (CLI) | payer MEDICARE, BC ==
[2024-09-04 16:03] LABS: Chol/HDL Ratio 3.46 Ratio; LDL Cholesterol,Calculated 90.3 mg/dL (0.0-131.0)
== END | disposition home or self-care (01) ==
LOC: LABWHC1 11:20
PROVIDERS: ATTEND Family Medicine
DX: I12.9 Hypertensive chronic kidney disease with stage 1 through stage 4 chronic kidney disease, or unspecified chronic kidney disease (principal); E66.3 Overweight; E11.22 Type 2 diabetes mellitus with diabetic chronic kidney disease; N18.9 Chronic kidney disease, unspecified; D50.9 Iron deficiency anemia, unspecified
CPT/HCPCS: 36415; 80061

== ENCOUNTER 2024-10-10 17:11 | Inpatient (IN) | payer MEDICARE, BC ==
[2024-10-10] MEDS: SODIUM CHLORIDE 0.9% 1,000 ML IV STA ×2 (18:01→19:32)
--- NOTE | 2024-10-10 18:04 | ED ---
General Adult HPI - General Chief complaint: Nausea/Vomiting/Diarrhea Stated complaint: NVD Time Seen by Provider: 10/10/24 17:18 Source: patient, EMS Mode of arrival: EMS Limitations: no limitations - History of Present Illness Initial comments: Dictation was produced using [employer] dictation software. please excuse any grammatical, word or spelling errors. Chief Complaint: 74-year-old female multiple comorbidities presents with nausea vomiting abdominal pain History of Present Illness: Patient 74-year-old female with multiple comorbidities states she has had 1 day of nausea vomiting abdominal pain. Patient is a poor historian states that she has had multiple bouts of emesis that appears to be bilious. She states that she is nauseated. Denies any fever chills or night sweats. States that her chronic back pain feels worse. The ROS documented in this emergency department record has been reviewed and confirmed by me. Those systems with pertinent positive or negative responses have been documented in the HPI. All other systems are other negative and/or noncontributory. - Related Data Home Medications Medication Instructions Recorded Confirmed Meclizine [Antivert] 25 mg PO BID PRN 11/26/17 07/19/24 L.acidoph,Paracasei, B.lactis 2 cap PO BID 10/08/18 07/19/24 [Probiotic] Melatonin 5 mg PO HS PRN 10/08/18 07/19/24 Thiamine [Vitamin B-1] 100 mg PO HS 10/08/18 07/19/24 Vitamin B-Complex Drops 1 drop PO BID 10/08/18 07/19/24 C,E,Zinc,Copper 11/Xedbr1y/Lut 1 cap PO DAILY 06/25/20 07/19/24 [Ocuvite Adult 50 Plus Softgel] Brimonidine Tartrate [Alphagan P 1 drop RIGHT EYE BID 11/26/20 07/19/24 0.2% Ophth Soln] Pantoprazole Sodium [Protonix] 40 mg PO BID 11/26/20 07/19/24 Insulin Aspart (For Pump) [NovoLOG 0.01 unit SQ-PUMP CONTINUOUS 03/03/21 (For Pump)] Cranberry Fruit Extract [Cranberry] 500 mg PO BID 05/25/22 07/19/24 Multivit-Min/Folic Acid/Pty072 1 tab PO DAILY 05/25/22 07/19/24 [Alive Premium Adult Multivit] Dhea 50mg With B-12 2500mcg 1 tab PO HS 04/27/23 07/19/24 Folic Acid 800mcg With Folate 1 tab PO HS 04/27/23 07/19/24 1333mg Magnesium Oxide [Mag-Ox] 400 mg PO BID 09/20/23 07/19/24 buPROPion XL [Wellbutrin XL] 300 mg PO DAILY 09/20/23 07/19/24 Iron 27mg 27 mg PO DAILY 09/23/23 07/19/24 Turmeric Complex 550mg 550 mg PO HS 09/23/23 07/19/24 ARIPiprazole [Abilify] 10 mg PO HS 03/10/24 07/19/24 Metoprolol Succinate [Toprol XL] 100 mg PO HS 03/10/24 07/19/24 Potassium Gluconate 99 mg PO DAILY 03/10/24 07/19/24 Rosuvastatin Calcium [Crestor] 5 mg PO HS 03/10/24 07/19/24 Scopolamine [Scopolamine 1 MG/72 1 patch TRANSDERM Q72H PRN 03/10/24 07/19/24 HR patch] Spironolactone [Aldactone] 50 mg PO DAILY 03/10/24 07/19/24 Aspirin [Adult Low Dose Aspirin EC] 81 mg PO DAILY 05/06/24 07/19/24 Promethazine [Phenergan] 25 mg PO BID PRN 05/06/24 07/19/24 hydroCHLOROthiazide 25 mg PO DAILY 05/06/24 07/19/24 Cyanocobalamin (Vitamin B-12) 2,500 mcg PO DAILY 07/19/24 07/19/24 [Vitamin B-12] Dorzolamide 2% [Trusopt 2%] 1 drops RIGHT EYE BID 07/19/24 07/19/24 lisinopriL [Zestril] 30 mg PO DAILY@1200 07/19/24 07/19/24 Previous Rx's Medication Instructions Recorded Butalb/APAP/Caff 50-325-40Mg 1 tab PO Q6H PRN #12 tab 09/06/22 [Fioricet 50-325-40] Apixaban [Eliquis] 5 mg PO BID tab 09/28/23 HYDROcodone/APAP 10-325MG [[place] 1 tab PO Q6H PRN #12 tab 09/28/23 10-325] Cholestyramine (with Sugar) 4 gm PO TID BETWEEN MEALS PRN #30 07/26/24 [Questran Packet] packet Ertapenem [INVanz] 1 gm IVPB DAILY 5 Days #5 each 07/26/24 Hydrocortisone [Cortef] 20 mg PO BID 30 Days #60 tab 07/26/24 Nystatin 100,000 Unit/gm Powd 1 applic TOPICAL BID 7 Days #1 each 07/26/24 [Mycostatin Powder] Ondansetron [Zofran] 4 mg PO TID PRN #20 tab 07/26/24 amLODIPine [Norvasc] 10 mg PO DAILY #30 tab 07/26/24 busPIRone HCl [Buspar] 10 mg PO BID #0 07/26/24 valACYclovir HCL [Valtrex] 1,000 mg PO BID 7 Days #14 tab 07/26/24 Allergies Allergy/AdvReac Type Severity Reaction Status Date / Time butorphanol tartrate Allergy BLISTERS Verified 10/10/24 17:22 [From Stadol] IN MOUTH ceftriaxone [From Rocephin] Allergy Rash/Hives Verified 10/10/24 17:22 clarithromycin [From Biaxin] Allergy Rash/Hives Verified 10/10/24 17:22 clindamycin Allergy Rash/Hives Verified 10/10/24 17:22 codeine Allergy Rash/Hives Verified 10/10/24 17:22 ergotamine tartrate Allergy Rash/Hives Verified 10/10/24 17:22 [From Cafergot] erythromycin base Allergy RASH, GI Verified 10/10/24 17:22 [From E-Mycin] SYMPTOMS ketorolac tromethamine Allergy Rash/Hives Verified 10/10/24 17:22 [From Toradol] liraglutide [From Victoza] Allergy Rash/Hives Verified 10/10/24 17:22 morphine Allergy Rash/Hives Verified 10/10/24 17:22 Penicillins Allergy Rash/Hives Verified 10/10/24 17:22 on upper body pentazocine lactate Allergy SEVERE Verified 10/10/24 17:22 [From Talwin] BLISTERS IN MOUTH pregabalin [From Lyrica] Allergy Rash/Hives Verified 10/10/24 17:22 propoxyphene HCl Allergy Rash/Hives Verified 10/10/24 17:22 [From Darvon] Sulfa (Sulfonamide Allergy Rash/Hives Verified 10/10/24 17:22 Antibiotics) sulfamethoxazole Allergy Rash/Hives Verified 10/10/24 17:22 [From Bactrim] tizanidine Allergy Unknown Verified 10/10/24 17:22 tramadol Allergy Unknown Verified 10/10/24 17:22 trimethoprim [From Bactrim] Allergy Rash/Hives Verified 10/10/24 17:22 vancomycin Allergy lip Verified 10/10/24 17:22 swelling metoclopramide [From Reglan] AdvReac Hallucinati Verified 10/10/24 17:22 ons monosodium glutamate [MSG] AdvReac Nausea & Verified 10/10/24 17:22 Vomiting nalbuphine HCl [From Nubain] AdvReac Nausea & Verified 10/10/24 17:22 Vomiting Review of Systems ROS Statement: Those systems with pertinent positive or pertinent negative responses have been documented in the HPI. ROS Other: All systems not noted in ROS Statement are negative. 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, DVT R calf in 1976, cardiac murmur, occipital neuraligia, balance issues-has narrowing of vessels "in the back of my head", vertigo, varicosities, states rt shoulder torn rotator cuff History of Any Multi-Drug Resistant Organisms: ESBL, MRSA, VRE Date of last positivie culture/infection: 11/25/20 ESBL;12/06/19 VRE; 03/10/11 MRSA MDRO Source:: Urine ESBL; Urine-VRE: MRSA 4th Right TOE Past Surgical History: Appendectomy, Back Surgery, Bladder Surgery, Breast Surgery, Cholecystectomy, Heart Catheterization, Hysterectomy, Orthopedic Surgery, Tonsillectomy Additional Past Surgical History / Comment(s): Lumbar fusions, bladder suspension, occipital nerve blocks, 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, R wrist/elbow nerve repair, bone removed R shoulder, 4th toe R foot partial amputation, bilateral feet/bunionectomies, R knee arthroscopies, R orbit decomp ression with ethmoidectomy and eyelid lift, EGD, colonoscopies, cystocopies, lithotripsy/stents, bilateral breast reduction, bilateral cataract removals, parathyroid surgery - April 2019, pain clinic procedures Past Anesthesia/Blood Transfusion Reactions: No Reported Reaction Additional Past Anesthesia/Blood Transfusion Reaction / Comment(s): never recieved blood Past Psychological History: Depression Smoking Status: Never smoker Past Alcohol Use History: None Reported Past Drug Use History: None Reported - Past Family History Father Family Medical History: Coronary Artery Disease (CAD), CVA/TIA, Diabetes Mellitus, Myocardial Infarction (IA), Pneumonia Additional Family Medical History / Comment(s): Father at the age of 78yrs from IA and pneumonia. Mother Family Medical History: Cancer, Congestive Heart Failure (CHF) Additional Family Medical History / Comment(s): Mother had uterine cancer. She recently at the age of 96yrs old from shingles. General Exam - General Exam Comments Initial Comments: PHYSICAL EXAM: General Impression: Alert and oriented x3, not in acute distress HEENT: Normocephalic atraumatic, extra-ocular movements intact, pupils equal and reactive to light bilaterally, dry mucous membranes Cardiovascular: Heart regular rate and rhythm Chest: Able to complete full sentences, no retractions, no tachypnea Abdomen: abdomen soft, diffuse palpatory abdominal tenderness, non-distended, no organomegaly Musculoskeletal: Pulses present and equal in all extremities, no peripheral edema Motor: no focal deficits noted Neurological: CN II-XII grossly intact, no focal motor or sensory deficits noted Skin: Intact with no visualized rashes Psych: Normal affect and mood Limitations: no limitations Course Vital Signs 10/10/24 10/10/24 10/10/24 17:15 17:41 18:10 Temperature 98.6 F Pulse Rate 52 L 89 89 Respiratory 20 20 24 Rate Blood Pressure 74/64 88/38 100/52 O2 Sat by Pulse 97 94 L Oximetry 10/10/24 10/10/24 10/10/24 19:00 19:30 19:33 Temperature Pulse Rate 96 96 90 Respiratory 24 20 Rate Blood Pressure 92/51 83/54 O2 Sat by Pulse 97 95 Oximetry 10/10/24 10/10/24 19:39 20:30 Temperature Pulse Rate 92 105 H Respiratory 20 Rate Blood Pressure 122/85 O2 Sat by Pulse 97 Oximetry EKG Findings - EKG Comments: EKG Findings:: My EKG interpretation: Ventricular rate 94, sinus rhythm, MN interval 151, cures 94, QTc 4 5. No MN prolongation, no QTC prolongation, no ST or T-wave changes noted. Overall, this EKG is unremarkable Procedures - Sepsis Sepsis Focused Exam #1 Time Sepsis Criteria Met: 22:18 Sepsis Focused Exam Date: 10/10/24 Sepsis Focused Exam Time: : Sepsis Focused Exam Complete: Yes Vital Signs & RN Notes Reviewed: Yes Capillary Refill: < 2 Seconds: Fingers, Toes Peripheral Pulses: Normal: Radial (R), Radial (L), Posterior Tibialis (R), Posterior Tibialis (L), Dorsalis Pedis (R), Dorsalis Pedis (L) Skin Color: Normal for Patient Respiratory Exam: normal lung sounds Cardiovascular Exam: tachycardia Medical Decision Making - Medical Decision Making Was pt. sent in by a medical professional or institution ([facility], PLATE CONDITIONER, urgent care, hospital, or fci...) When possible be specific @ -No Did you speak to anyone other than the patient for history (EMS, parent, family, police, friend...)? What history was obtained from this source @ -No Did you review nursing and triage notes (agree or disagree)? Why? @ -I reviewed and agree with nursing and triage notes Were old charts reviewed (outside hosp., previous admission, EMS record, old EKG, old radiological studies, urgent care reports/EKG's, fci records)? Report findings @ -No old charts were reviewed Differential Diagnosis (chest pain, altered mental status, abdominal pain women, abdominal pain men, vaginal bleeding, musculoskeletal, weakness, fever, dyspnea, syncope, headache, dizziness, GI bleed, back pain, seizure, CVA, palpatations, mental health)? @ -Differential Weakness: Hypoglycemia, shock, sepsis, hyponatremia, anemia, infection, IA, ETOH, adverse medicine reaction, overdose, stroke, this is not meant to be an all-inclusive list. EKG interpreted by me (3pts min.). @ -See above X-rays interpreted by me (1pt min.). @ -None done CT interpreted by me (1pt min.). @ -CT abdomen pelvis shows no acute processes U/S interpreted by me (1pt. min.). @ -None done What testing was considered but not performed or refused? (CT, X-rays, U/S, labs)? Why? @ -None What meds were considered but not given or refused? Why? @ -None Was smoking cessation discussed for >3mins.? @ -No Were there social determinants of health that impacted care today? How? (Homelessness, low income, unemployed, alcoholism, drug addiction, transportation, low edu. Level, literacy, decrease access to med. care, long-term, rehab)? @ -No Was there de-escalation of care discussed even if they declined (Discuss DNR or withdrawal of care, Hospice)? DNR status @ -No What co-morbidities impacted this encounter? (DM, HTN, Smoking, COPD, CAD, Cancer, CVA, ARF, Chemo, Hep., AIDS, mental health diagnosis, sleep apnea, morbid obesity)? @ -A-fib, DVT, diabetes, hypertension Was patient admitted / discharged? Hospital course, mention meds given and route, prescriptions, significant lab abnormalities, going to OR and other pertinent info. @ -74-year-old female presents to the emergency department nausea vomiting abdominal pain. Vital signs upon arrival shows initial blood pressure of 74/64. Patient given 2 L of IV fluids with improvement of blood pressure. Laboratory evaluation obtained. Mild leukocytosis of 15.72. Potassium 6.5, elevated renal function. Troponin 1.510 likely secondary to acute kidney injury. UTI on urinalysis. Patient given antibiotics. Given hyperkalemia cocktail. Case dis cussed with grocery stock clerk who is agreeable that patient meets criteria for ICU admission. Did you discuss the management of the patient with other professionals (professionals i.e. , PA, PLATE CONDITIONER, lab, RT, psych nurse, social media specialist, anvilsmith, teacher, employment security officer, case technician)? Give summary @ -See above, case discussed with hospitalist for admission Was critical care preformed (if so, how long)? @ -Yes, 33 minutes for management of UTI, sepsis and hyperkalemia Undiagnosed new problem with uncertain prognosis? @ -No Drug Therapy requiring intensive monitoring for toxicity (Heparin, Nitro, Insu tamera, Cardizem)? @ -No Were any procedures done? @ -No Diagnosis/symptom? Acute, or Chronic, or Acute on Chronic? Uncomplicated (without systemic symptoms) or Complicated (systemic symptoms)? @ -Hyperkalemia Side effects of treatment? @ -No Exacerbation, Progression, or Severe Exacerbation? @ -No Poses a threat to life or bodily function? How? (Chest pain, USA, IA, pneumonia, PE, COPD, DKA, ARF, appy, cholecystitis, CVA, Diverticulitis, Homicidal, Suicidal, threat to staff... and all critical care pts) @ -yes - Lab Data Result diagrams: 10/10/24 17:56 10/10/24 17:56 Lab Results 10/10/24 10/10/24 10/10/24 Range/Units 17:56 17:56 17:56 WBC 15.72 H (4.50-10.00) 10*3/uL RBC 4.21 (4.10-5.20) 10*6/uL Hgb 12.7 (12.0-15.0) g/dL Hct 39.8 (37.2-46.3) % MCV 94.5 (80.0-97.0) fL MCH 30.2 (27.0-32.0) pg MCHC 31.9 L (32.0-37.0) g/dL Plt Count 299 (140-440) 10*3/uL MPV 10.5 (9.5-12.2) fL Immature Gran % (Auto) 1.1 % Neutrophils % 79.4 % Lymphocytes % 7.8 % Monocytes % 10.1 % Eosinophils % 1.3 % Basophils % 0.3 % Immature Gran # 0.18 H (0.00-0.04) 10*3/uL Neutrophils # 12.47 H (1.80-7.70) 10*3/uL Lymphocytes # 1.23 (0.90-5.00) 10*3/uL Monocytes # 1.58 H (0.20-1.00) 10*3/uL Eosinophils # 0.21 (0.04-0.35) 10*3/uL Basophils # 0.05 (0.00-0.10) 10*3/uL PT 11.7 (10.0-12.5) sec INR 1.1 (<1.2) APTT 25.9 (22.0-30.0) sec Sodium 135 L (137-145) mmol/L Potassium 6.5 H* (3.5-5.1) mmol/L Chloride 105 (98-107) mmol/L Carbon Dioxide 10 L (22-30) mmol/L Anion Gap 20 mmol/L BUN 47 H (7-17) mg/dL Creatinine 4.23 H (0.52-1.04) mg/dL Est GFR (CKD-EPI)AfAm 11 (>60 ml/min/1.73 sqM) Est GFR (CKD-EPI)NonAf 10 (>60 ml/min/1.73 sqM) Glucose 151 H (74-99) mg/dL Plasma Lactic Acid Sudhir (0.7-2.0) mmol/L Calcium 9.3 (8.4-10.2) mg/dL Magnesium 1.7 (1.6-2.3) mg/dL Total Bilirubin 0.7 (0.2-1.3) mg/dL AST 22 (14-36) U/L ALT 10 (4-34) U/L Alkaline Phosphatase 89 (38-126) U/L Troponin I (0.000-0.034) ng/mL Total Protein 6.3 (6.3-8.2) g/dL Albumin 4.0 (3.5-5.0) g/dL Urine Color Urine Appearance (Clear) Urine pH (5.0-8.0) Ur Specific [place] (1.001-1.035) Urine Protein (Negative) Urine Glucose (UA) (Negative) Urine Ketones (Negative) Urine Blood (Negative) Urine Nitrite (Negative) Urine Bilirubin (Negative) Urine Urobilinogen (<2.0) mg/dL Ur Leukocyte Esterase (Negative) Urine RBC (0-5) /hpf Urine WBC (0-5) /hpf Urine WBC Clumps (None) /hpf Urine Bacteria (None) /hpf Urine Mucus (None) /hpf 10/10/24 10/10/24 10/10/24 Range/Units 17:56 17:56 18:50 WBC (4.50-10.00) 10*3/uL RBC (4.10-5.20) 10*6/uL Hgb (12.0-15.0) g/dL Hct (37.2-46.3) % MCV (80.0-97.0) fL MCH (27.0-32.0) pg MCHC (32.0-37.0) g/dL Plt Count (140-440) 10*3/uL MPV (9.5-12.2) fL Immature Gran % (Auto) % Neutrophils % % Lymphocytes % % Monocytes % % Eosinophils % % Basophils % % Immature Gran # (0.00-0.04) 10*3/uL Neutrophils # (1.80-7.70) 10*3/uL Lymphocytes # (0.90-5.00) 10*3/uL Monocytes # (0.20-1.00) 10*3/uL Eosinophils # (0.04-0.35) 10*3/uL Basophils # (0.00-0.10) 10*3/uL PT (10.0-12.5) sec INR (<1.2) APTT (22.0-30.0) sec Sodium (137-145) mmol/L Potassium (3.5-5.1) mmol/L Chloride (98-107) mmol/L Carbon Dioxide (22-30) mmol/L Anion Gap mmol/L BUN (7-17) mg/dL Creatinine (0.52-1.04) mg/dL Est GFR (CKD-EPI)AfAm (>60 ml/min/1.73 sqM) Est GFR (CKD-EPI)NonAf (>60 ml/min/1.73 sqM) Glucose (74-99) mg/dL Plasma Lactic Acid Sudhir 1.6 (0.7-2.0) mmol/L Calcium (8.4-10.2) mg/dL Magnesium (1.6-2.3) mg/dL Total Bilirubin (0.2-1.3) mg/dL AST (14-36) U/L ALT (4-34) U/L Alkaline Phosphatase (38-126) U/L Troponin I 1.510 H* (0.000-0.034) ng/mL Total Protein (6.3-8.2) g/dL Albumin (3.5-5.0) g/dL Urine Color Light Red Urine Appearance Turbid H (Clear) Urine pH 5.5 (5.0-8.0) Ur Specific [place] 1.023 (1.001-1.035) Urine Protein 2+ H (Negative) Urine Glucose (UA) Negative (Negative) Urine Ketones Negative (Negative) Urine Blood Small H (Negative) Urine Nitrite Negative (Negative) Urine Bilirubin Negative (Negative) Urine Urobilinogen <2.0 (<2.0) mg/dL Ur Leukocyte Esterase Large H (Negative) Urine RBC 21 H (0-5) /hpf Urine WBC >182 H (0-5) /hpf Urine WBC Clumps Many H (None) /hpf Urine Bacteria Moderate H (None) /hpf Urine Mucus Few H (None) /hpf Disposition Clinical Impression: Sepsis secondary to UTI, Hyperkalemia Disposition: ADMITTED IP TO THIS [facility] Condition: Critical Referrals: Andrew Gonsales MD [Primary Care Provider] - 1-2 days Decision Time: 22:19
[2024-10-10 18:11] LABS: Basophils # (A) 0.05 10*3/uL (0.00-0.10); Basophils % (A) 0.3 %; Eosinophils # (A) 0.21 10*3/uL (0.04-0.35); Eosinophils % (A) 1.3 %; HCT 39.8 % (37.2-46.3); HGB 12.7 g/dL (12.0-15.0); Lymphocytes # (A) 1.23 10*3/uL (0.90-5.00); Lymphocytes % (A) 7.8 %; MCH 30.2 pg (27.0-32.0); MCHC 31.9 g/dL (32.0-37.0); MCV 94.5 fL (80.0-97.0); Mean Platelet Volume 10.5 fL (9.5-12.2); Monocytes # (A) 1.58 10*3/uL (0.20-1.00); Monocytes % (A) 10.1 %; Neutrophils # (A) 12.47 10*3/uL (1.80-7.70); Neutrophils % (A) 79.4 %; Platelet Count 299 10*3/uL (140-440); RBC 4.21 10*6/uL (4.10-5.20); RDW 15.7 % (11.5-14.5); WBC 15.72 10*3/uL (4.50-10.00)
[2024-10-10] MEDS: ONDANSETRON 4 MG/2 ML VIAL IVP STA ×2 (18:15→22:35)
[2024-10-10] MEDS: fentaNYL (PF) 50 MCG/ML 2 ML AMP IVP STA (18:19)
[2024-10-10 18:23] LABS: INR 1.1 (<1.2); Partial Thromboplastin Time 25.9 sec (22.0-30.0); Prothrombin Time 11.7 sec (10.0-12.5)
[2024-10-10 18:41] LABS: ALT 10 U/L (4-34); AST 22 U/L (14-36); African American GFR (CKD) 11 (>60 ml/min/1.73 sqM); Alkaline Phosphatase 89 U/L (38-126); Anion Gap 20 mmol/L; Blood Urea Nitrogen 47 mg/dL (7-17); Calcium 9.3 mg/dL (8.4-10.2); Carbon Dioxide 10 mmol/L (22-30); Chloride 105 mmol/L (98-107); Glucose 151 mg/dL (74-99); Magnesium 1.7 mg/dL (1.6-2.3); Non-African American GFR(CKD) 10 (>60 ml/min/1.73 sqM); Sodium 135 mmol/L (137-145); Total Bilirubin 0.7 mg/dL (0.2-1.3); Total Protein 6.3 g/dL (6.3-8.2)
[2024-10-10 18:50] LABS: Potassium 6.5 mmol/L (3.5-5.1)
[2024-10-10 19:13] LABS: Appearance,Urine Turbid (Clear); Bacteria,Urine Moderate /hpf; Bilirubin,Urine Negative (Negative); Blood,Urine Small (Negative); Color,Urine Light Red; Glucose,Urine (UA) Negative (Negative); Ketones,Urine Negative (Negative); Leukocyte Esterase,Urine Large (Negative); Mucus,Urine Few /hpf; Nitrite,Urine Negative (Negative); PH, Urine 5.5 (5.0-8.0); Protein,Urine 2+ (Negative); RBC,Urine 21 /hpf (0-5); Urobilinogen,Urine <2.0 mg/dL (<2.0); WBC,Urine >182 /hpf (0-5)
[2024-10-10 19:16] LABS: Specific Gravity,Urine 1.023 (1.001-1.035)
[2024-10-10] MEDS: ALBUTEROL NEB (CONC) 2.5 MG/0.5 ML INHALATION ONE (19:30)
[2024-10-10] MEDS: DEXTROSE 50% SYRINGE 50 ML IVP ONE (19:33)
[2024-10-10] MEDS: INSULIN REGULAR 100 UNIT/ML VIAL (IV) IV ONE (19:36)
[2024-10-10] MEDS: CALCIUM GLUCONATE IN NACL 1 GM in SALINE 1 100ML.BAG IVPB ONE (19:39)
[2024-10-10] MEDS: SODIUM ZIRCONIUM CYCLOSILICATE 10 GM PACKET PO ONE (19:42)
[2024-10-10] MEDS: HYDROmorphone 0.5 MG/0.5 ML SYRINGE IVP STA (20:52)
--- NOTE | 2024-10-10 21:02 | CT ---
EXAMINATION TYPE: CT abdomen pelvis wo con DATE OF EXAM: 10/10/2024 8:17 PM COMPARISON: 07/19/2024r CLINICAL INDICATION: Female, 74 years old with history of abdominal pain, hypotension, Nausea, vomiti ng, abdominal pain. TECHNIQUE: Axial images were obtained from above the diaphragm to the pubic rami in the axial plane a t 5 mm thick sections. Reconstructed images are reviewed on the computer in the coronal plane. CONTRAST: mL of . Study performed without Oral Contrast DLP: 796.8 mGycm, Automated exposure control for dose reduction was used. FINDINGS: Limited CT sections are obtained the lung bases. The lung bases are clear. CT ABDOMEN: Liver: Normal Spleen: Normal Pancreas: Normal Adrenal glands: The adrenal glands are normal. Gallbladder: Normal Kidneys: No masses are evident. No hydronephrosis is present. There is a 4.0 cm cyst on the anterol ateral mid left kidney. There is a 2.7 cm cyst on the lateral right kidney. No renal stones are evid ent Aorta: Vascular calcification is within the aorta. Inferior vena cava: Normal. CT PELVIS: Loops of bowel within the abdomen and pelvis are normal. Studies without oral contrast limiting b owel evaluation. No dilated loops of bowel are evident. Appendix: Not identified. No dilated tubular structure or inflammatory changes are evident. Urinary bladder: Normal. Genitourinary structures: Uterus and ovaries are not identified Osseous structures: There appears to be prior fractures to the pubic symphysis postsurgical changes a re within the lumbar spine. No suspicious lytic or sclerotic lesions. IMPRESSION: 1. No suspicious changes for ileus or obstruction. 2. Bilateral renal cysts [facility], , 10/10/2024 9:00 PM
[2024-10-10] MEDS ORDERED: NALOXONE 0.4 MG/ML 1 ML VIAL IV PRN (22:11)
[2024-10-10] MEDS: SODIUM CHLORIDE 0.9% 1,000 ML IV SCH (22:35)
[2024-10-10 23:17] LABS: Glucose,Whole Blood 174 mg/dL (70-110)
[2024-10-10] MEDS: HYDROmorphone 0.5 MG/0.5 ML SYRINGE IVP PRN (23:54)
[2024-10-11] MEDS: LEVOFLOXACIN 750MG-D5W PMX 750 MG in DEXTROSE/WATER 1 150ML.BAG IVPB STA (00:43)
[2024-10-11 01:16] LABS: African American GFR (CKD) 14 (>60 ml/min/1.73 sqM); Anion Gap 20 mmol/L; Blood Urea Nitrogen 43 mg/dL (7-17); Calcium 8.6 mg/dL (8.4-10.2); Chloride 109 mmol/L (98-107); Glucose 170 mg/dL (74-99); Non-African American GFR(CKD) 12 (>60 ml/min/1.73 sqM); Potassium 5.3 mmol/L (3.5-5.1); Sodium 137 mmol/L (137-145)
[2024-10-11] MEDS: ONDANSETRON 4 MG/2 ML VIAL IVP PRN (01:23)
--- NOTE | 2024-10-11 01:47 | P.CNPUL ---
History of Present Illness Consult date: 10/11/24 Requesting physician: Collin Schwarz Reason for consult: other (MARIO, hyperkalemia, ICU management) Chief complaint: Dysuria, flank pain, weakness History of present illness: Patient is a 74-year-old female with past medical history significant for hypertension, hyperlipidemia, diabetes mellitus, atrial fibrillation anticoagulated on Eliquis, obstructive sleep apnea with home CPAP, COPD, adrenal insufficiency, and recurrent urinary tract infections. Of note, patient had a recent hospitalization July, for urinary tract infection. Urine culture was remarkable for Klebsiella pneumonia at that time. No further treatment with antibiotics following her hospitalization in July. Presents the emergency department history evening with concerns of UTI. She was also noted to be hypotensive and tachycardic. With elevated WBC count. Workup in the emergency department including CT of the abdomen and pelvis which did not show any suspicious bowel obstructions or ileus. Bilateral renal cysts were noted. No stones or hydronephrosis. Found to be in acute kidney injury/failur e. Creatinine 4.23. Urinalysis remarkable for pyuria and bacteriuria. Urine culture was sent. Potassium was critically elevated at 6.5. This was treated in the ED with a combination of insulin 10 units regular, D50 W amp, 1 g calcium gluconate, concentrated albuterol treatment, as well as 5 g of Lokelma. EKG reviewed, sinus rhythm, rate 94 bpm, no QRS widening or peaked T waves. Nonspecific mild ST depressions. She does take lisinopril, Aldactone, as well as, potassium supplements at home. Remaining blood work remarkable for a CBC with a WBC count of 15.7, hemoglobin 12.7, platelets 299. CMP: Sodium 135, potassium 6.5, chloride 105, serum bicarb 10, anion gap 20, BUN 47, creatinine 4.23, glucose 151. Lactic 1.6. LFTs not elevated. Troponin 1.51, probably related to poor renal clearance. Patient is currently being evaluated in the intensive care unit. She is alert and oriented. States over the last week she has had burning with urination accompanied with urinary frequency and right flank pain. Denies any hematuria. No documented fevers but has been chilled. She has been eating and drinking without issue up until 24 to 48 hours prior to ER presentation where she developed some nausea and vomiting with with eating and drinking. Denies hematochezia, melanotic stools, hematemesis. Denies abdominal pain. Mucous membranes appear dry. Blood pressures improved with fluid resuscitation. She has been fluid resuscitated with a total of 2 L normal saline in the ED and continues on normal saline at 130 mL/h. Heart rate is tachycardic. Not requiring any vasopressors at the moment. Empirically covered with Levaquin in the ED. She has multiple medication/antibiotic allergies. Repeat labs are pending. Review of Systems Constitutional: Reports chills, Reports fatigue, Reports poor appetite, Denies fever, Denies weight gain, Denies weight loss Ears, nose, mouth and throat: Denies headache, Denies nasal congestion, Denies nasal discharge, Denies post-nasal drip, Denies sinus pain, Denies sinus pressu re, Denies sore throat Cardiovascular: Denies chest pain, Denies leg edema, Denies lightheadedness, Denies orthopnea, Denies palpitations, Denies paroxysmal nocturnal dyspnea, Denies syncope Respiratory: Denies congestion, Denies cough, Denies dyspnea, Denies excessive sputum, Denies home oxygen Gastrointestinal: Reports loss of appetite, Reports nausea, Reports vomiting (Subsided), Denies abdominal pain, Denies change in bowel habits, Denies diarrhea Genitourinary: Reports dysuria, Reports flank pain (Right lateral), Reports urinary frequency, Denies hematuria Musculoskeletal: Denies limitation of motion Integumentary: Reports rash (Right anterior chest) Neurological: Denies headaches, Denies seizures, Denies syncope Psychiatric: Denies anxiety, Denies depression Past Medical History Past Medical History: Atrial Fibrillation, Diabetes Mellitus, Deep Vein Thrombosis (DVT), Fibromyalgia, Hyperlipidemia, Hypertension, Osteoarthritis (OA), Pneumonia, Renal Disease, Sleep Apnea/CPAP/BIPAP, Vascular Disorder Additional Past Medical History / Comment(s): Pt recently admitted to [facility] with R flank pain and UTI 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, DVT R calf in 1976, cardiac murmur, occipital neuraligia, balance issues-has narrowing of vessels "in the back of my head", vertigo, varicosities, states rt shoulder torn rotator cuff History of Any Multi-Drug Resistant Organisms: ESBL, MRSA, VRE Date of last positivie culture/infection: 11/25/20 ESBL;12/06/19 VRE; 03/10/11 MRSA MDRO Source:: Urine ESBL; Urine-VRE: MRSA 4th Right TOE Past Surgical History: Appendectomy, Back Surgery, Bladder Surgery, Breast Surgery, Cholecystectomy, Heart Catheterization, Hysterectomy, Orthopedic Surgery, Tonsillectomy Additional Past Surgical History / Comment(s): Lumbar fusions, bladder suspension, occipital nerve blocks, 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, R wrist/elbow nerve repair, bone removed R shoulder, 4th toe R foot partial amputation, bilateral feet/bunionectomies, R knee arthroscopies, R orbit decompression with ethmoidectomy and eyelid lift, EGD, colonoscopies, cystocopies, lithotripsy/stents, bilateral breast reduction, bilateral cataract removals, parathyroid surgery - April 2019, pain clinic procedures Past Anesthesia/Blood Transfusion Reactions: No Reported Reaction Additional Past Anesthesia/Blood Transfusion Reaction / Comment(s): never recieved blood Past Psychological History: Depression Additional Psychological History / Comment(s): Pt resides with her spouse. She uses a walker. She normally drives. She has a nebulizer, cpap, bsc, shower chair, bp machine, dexcom monitor system for her BG and insulin pump. Smoking Status: Never smoker Past Alcohol Use History: None Reported Additional Past Alcohol Use History / Comment(s): no alcohol Past Drug Use History: None Reported - Past Family History Father Family Medical History: Coronary Artery Disease (CAD), CVA/TIA, Diabetes [place], Myocardial Infarction ([place]), Pneumonia Additional Family Medical History / Comment(s): Father at the age of 78yrs from [place] and pneumonia. Mother Family Medical History: Cancer, Congestive Heart Failure (CHF) Additional Family Medical History / Comment(s): Mother had uterine cancer. She recently at the age of 96yrs old from shingles. Medications and Allergies Home Medications Medication Instructions Recorded Confirmed Type Meclizine [Antivert] 25 mg PO BID PRN 11/26/17 10/11/24 History L.acidoph,Paracasei, B.lactis 2 cap PO BID 10/08/18 10/11/24 History [Probiotic] Melatonin 5 mg PO HS PRN 10/08/18 10/11/24 History Thiamine [Vitamin B-1] 100 mg PO HS 10/08/18 10/11/24 History Vitamin B-Complex Drops 1 drop PO BID 10/08/18 10/11/24 History C,E,Zinc,Copper 11/Vqmab5u/Lut 1 cap PO DAILY 06/25/20 10/11/24 History [Ocuvite Adult 50 Plus Softgel] Brimonidine Tartrate [Alphagan P 1 drop RIGHT EYE BID 11/26/20 10/11/24 History 0.2% Ophth Soln] Pantoprazole Sodium [Protonix] 40 mg PO BID 11/26/20 10/11/24 History Insulin Aspart (For Pump) [NovoLOG 0.01 unit SQ-PUMP CONTINUOUS 03/03/21 10/11/24 History (For Pump)] Cranberry Fruit Extract [Cranberry] 500 mg PO BID 05/25/22 10/11/24 History Multivit-Min/Folic Acid/Wxs278 1 tab PO DAILY 05/25/22 10/11/24 History [Alive Premium Adult Multivit] Butalb/APAP/Caff 50-325-40Mg 1 tab PO Q6H PRN #12 tab 09/06/22 10/11/24 Rx [Fioricet 50-325-40] Dhea 50mg With B-12 2500mcg 1 tab PO HS 04/27/23 10/11/24 History Folic Acid 800mcg With Folate 1 tab PO HS 04/27/23 10/11/24 History 1333mg Magnesium Oxide [Mag-Ox] 400 mg PO BID 09/20/23 10/11/24 History buPROPion XL [Wellbutrin XL] 300 mg PO DAILY 09/20/23 10/11/24 History Iron 27mg 27 mg PO DAILY 09/23/23 10/11/24 History Turmeric Complex 550mg 550 mg PO HS 09/23/23 10/11/24 History Apixaban [Eliquis] 5 mg PO BID tab 09/28/23 10/11/24 Rx HYDROcodone/APAP 10-325MG [Catron 1 tab PO Q6H PRN #12 tab 09/28/23 10/11/24 Rx 10-325] ARIPiprazole [Abilify] 10 mg PO HS 03/10/24 10/11/24 History Metoprolol Succinate [Toprol XL] 100 mg PO HS 03/10/24 10/11/24 History Potassium Gluconate 99 mg PO DAILY 03/10/24 10/11/24 History Rosuvastatin Calcium [Crestor] 5 mg PO HS 03/10/24 10/11/24 History Scopolamine [Scopolamine 1 MG/72 1 patch TRANSDERM Q72H PRN 03/10/24 10/11/24 History HR patch] Spironolactone [Aldactone] 50 mg PO DAILY 03/10/24 10/11/24 History Aspirin [Adult Low Dose Aspirin EC] 81 mg PO DAILY 05/06/24 10/11/24 History Promethazine [Phenergan] 25 mg PO BID PRN 05/06/24 10/11/24 History hydroCHLOROthiazide 25 mg PO DAILY 05/06/24 10/11/24 History Cyanocobalamin (Vitamin B-12) 2,500 mcg PO DAILY 07/19/24 10/11/24 History [Vitamin B-12] Dorzolamide 2% [Trusopt 2%] 1 drops RIGHT EYE BID 07/19/24 10/11/24 History lisinopriL [Zestril] 30 mg PO DAILY@1200 07/19/24 10/11/24 History Nystatin 100,000 Unit/gm Powd 1 applic TOPICAL BID 7 Days #1 each 07/26/24 10/11/24 Rx [Mycostatin Powder] Ondansetron [Zofran] 4 mg PO TID PRN #20 tab 07/26/24 10/11/24 Rx amLODIPine [Norvasc] 10 mg PO DAILY #30 tab 07/26/24 10/11/24 Rx busPIRone HCl [Buspar] 10 mg PO BID #0 07/26/24 10/11/24 Rx Albuterol Nebulized [Ventolin 2.5 mg INHALATION RT-QID PRN 10/11/24 10/11/24 History Nebulized] Hydrocortisone [Cortef] 10 mg PO HS 10/11/24 10/11/24 History Hydrocortisone [Cortef] 20 mg PO DAILY 10/11/24 10/11/24 History Allergies Allergy/AdvReac Type Severity Reaction Status Date / Time butorphanol tartrate Allergy BLISTERS Verified 10/11/24 08:30 [From Stadol] IN MOUTH ceftriaxone [From Rocephin] Allergy Rash/Hives Verified 10/11/24 08:30 clarithromycin [From Biaxin] Allergy Rash/Hives Verified 10/11/24 08:30 clindamycin Allergy Rash/Hives Verified 10/11/24 08:30 codeine Allergy Rash/Hives Verified 10/11/24 08:30 ergotamine tartrate Allergy Rash/Hives Verified 10/11/24 08:30 [From Cafergot] erythromycin base Allergy RASH, GI Verified 10/11/24 08:30 [From E-Mycin] SYMPTOMS ketorolac tromethamine Allergy Rash/Hives Verified 10/11/24 08:30 [From Toradol] liraglutide [From Victoza] Allergy Rash/Hives Verified 10/11/24 08:30 morphine Allergy Rash/Hives Verified 10/11/24 08:30 Penicillins Allergy Rash/Hives Verified 10/11/24 08:30 on upper body pentazocine lactate Allergy SEVERE Verified 10/11/24 08:30 [From Talwin] BLISTERS IN MOUTH pregabalin [From Lyrica] Allergy Rash/Hives Verified 10/11/24 08:30 propoxyphene HCl Allergy Rash/Hives Verified 10/11/24 08:30 [From Darvon] Sulfa (Sulfonamide Allergy Rash/Hives Verified 10/11/24 08:30 Antibiotics) sulfamethoxazole Allergy Rash/Hives Verified 10/11/24 08:30 [From Bactrim] tizanidine Allergy Unknown Verified 10/11/24 08:30 tramadol Allergy Unknown Verified 10/11/24 08:30 trimethoprim [From Bactrim] Allergy Rash/Hives Verified 10/11/24 08:30 vancomycin Allergy lip Verified 10/11/24 08:30 swelling metoclopramide [From Reglan] AdvReac Hallucinati Verified 10/11/24 08:30 ons monosodium glutamate [MSG] AdvReac Nausea & Verified 10/11/24 08:30 Vomiting nalbuphine HCl [From Nubain] AdvReac Nausea & Verified 10/11/24 08:30 Vomiting Physical Exam Vitals: Vital Signs Temp Pulse Resp BP Pulse Ox 10/11/24 00:00 98.7 F 115 H 22 99/54 97 10/10/24 23:21 98.7 F 121 H 30 H 99/54 10/10/24 23:18 113 H 25 H 10/10/24 23:08 98.8 F 112 H 20 101/52 97 10/10/24 20:30 105 H 20 122/85 97 10/10/24 19:39 92 10/10/24 19:33 90 10/10/24 19:30 96 20 83/54 95 10/10/24 19:00 96 24 92/51 97 10/10/24 18:10 89 24 100/52 10/10/24 17:41 89 20 88/38 94 L 10/10/24 17:15 98.6 F 52 L 20 74/64 97 Intake and Output 10/10/24 10/10/24 10/11/24 14:59 22:59 06:59 Intake Total 130 Output Total 50 0 Balance -50 130 Intake: Intake, IV Titration 130 Amount Sodium Chloride 0.9% 1, 130 000 ml @ 130 mls/hr IV . Q7H42M [facility] Rx#:[id number] Output: Urine 50 0 Uretheral (Lai) 50 Other: Voiding Method External Catheter Weight 65.771 kg GENERAL EXAM: Alert, 74-year-old female, rigors, fairly comfortable in no apparent distress. HEAD: Normocephalic and atraumatic EYES: Normal reaction of pupils, equal size. NOSE: Clear with pink turbinates. THROAT: No erythema or exudates. Dry mucous membranes. NECK: No masses, no JVD. CHEST: No chest wall deformity. LUNGS: Equal air entry with no crackles, wheeze, rhonchi or dullness. On room air. No conversational dyspnea or accessory muscle use.. CVS: S1 and S2 normal with no audible murmur, regular rhythm. No extra heart sounds ABDOMEN: No hepatosplenomegaly, active bowel sounds, no guarding or rigidity. SPINE: No scoliosis or deformity. Right CVA tenderness. SKIN: Erythemic rash over the anterior chest CENTRAL NERVOUS SYSTEM: No focal deficits, tone is normal in all 4 extremities. EXTREMITIES: There is no peripheral edema, clubbing, or cyanosis. Peripheral pulses are intact. Results - Laboratory Findings CBC and BMP: 10/11/24 02:53 10/11/24 02:53 PT/INR, D-dimer PT 11.7 sec (10.0-12.5) 10/10/24 17:56 INR 1.1 (<1.2) 10/10/24 17:56 Abnormal lab findings: Abnormal Labs 10/10/24 10/10/24 10/10/24 17:56 17:56 17:56 WBC 15.72 H MCHC 31.9 L Immature Gran # 0.18 H Neutrophils # 12.47 H Monocytes # 1.58 H Sodium 135 L Potassium 6.5 H* Carbon Dioxide 10 L BUN 47 H Creatinine 4.23 H Glucose 151 H POC Glucose (mg/dL) Troponin I 1.510 H* Urine Appearance Urine Protein Urine Blood Ur Leukocyte Esterase Urine RBC Urine WBC Urine WBC Clumps Urine Bacteria Urine Mucus 10/10/24 10/10/24 18:50 23:14 WBC MCHC Immature Gran # Neutrophils # Monocytes # Sodium Potassium Carbon Dioxide BUN Creatinine Glucose POC Glucose (mg/dL) 174 H Troponin I Urine Appearance Turbid H Urine Protein 2+ H Urine Blood Small H Ur Leukocyte Esterase Large H Urine RBC 21 H Urine WBC >182 H Urine WBC Clumps Many H Urine Bacteria Moderate H Urine Mucus Few H Assessment and Plan Assessment: Suspect UTI and urosepsis Acute kidney injury, secondary to above Severe hyperkalemia, treated with K cocktail including insulin 10 units regular, D50 W amp, 1 g calcium gluconate, concentrated albuterol treatment, as well as 5 g of Lokelma. Anion gap metabolic acidosis Sinus tachycardia History of paroxysmal atrial fibrillation, currently sinus mechanism, chronically anticoagulated on Eliquis History of hypertension History of hyperlipidemia History of nonobstructive coronary artery disease Elevated troponins, likely secondary to poor renal clearance History of frequent urinary tract infections History of adrenal insufficiency, maintained on Solu-Cortef Obstructive sleep apnea, with home CPAP at APAP 5/13 cm H2O Chronic obstructive pulmonary disease, stable and inactive Plan: Patient's medications, labs, imaging reviewed CT of the abdomen and pelvis which did not show any suspicious bowel obstructions or ileus. Bilateral renal cysts were noted. No nephrolithiasis or hydronephrosis. Continue empiric antibiotics. Urine and blood cultures pending. Hold lisinopril, Aldactone, and potassium supplements; as well as, other antihypertensive medications at the moment. She has been fluid resuscitated with a total of 2 L normal saline bolus, continues on normal saline at 130 mL/h Monitor renal function Recheck electrolytes, including potassium No acute QRS widening or peaked T waves on EKG Nephrology has been consulted Solu-Cortef has been resumed Elicarolis has been resumed Ask to bring in CPAP for use at bedtime Patient will be monitored in the intensive care unit. I have personally seen and examined the patient, performed the documentation and the assessment and plan as written. Number of minutes spent on the visit:20 There is a joint evaluation that was done for membranous fixation. This evaluation was done and 35 minutes. In summary, this 74-year-old female patient presented to the hospital septic secondary to underlying urine tract infection. The patient also sustained acute kidney injury and severe anion gap metabolic acidosis. At this point in time, the patient is in the intensive care unit. She was given IV fluids already and she was aggressively resuscitated with IV fluids. She was given a total of 2 L and currently she is on a bicarb infusion running at 130 cc an hour. She was also started on norepinephrine which is r unning at 0.18 mcg/kg/min. She has extensive number of allergies and the patient was started on IV Invanz regarding an underlying urine tract infection. She has had multiple UTIs in the past. White cell count 11 hemoglobin of 10.3 and a platelet count of 217. Most recent serum bicarb level is at 6 with a gap of 21 and a BUN of 44 with a creatinine of 3.4. Troponin was at 1.1 consistent with type II myocardial ischemia in the setting of severe hypotension and septic shock. The patient is currently in intensive.. IV line will be established. She would likely need a triple-lumen catheter. Arterial line cath was already inserted. Blood gas was also noted. The patient is has a pH of 7.1 with a pCO2 28 and pO2 of 99 consistent with compensated severe metabolic acidosis. Her comorbidities include chronic A-fib, current rhythm is sinus, diabetes mellitus, hypertension hyperlipidemia and obstructive sleep apnea and COPD. She also has chronic adrenal sufficiency maintained on oral hydrocortisone and the patient will be started on stress dose hydrocortisone 100 mg every 8 hours. Condition is critical and will continue to follow. Time with Patient: Greater than 30
[2024-10-11 01:49] LABS: Carbon Dioxide 8 mmol/L (22-30)
[2024-10-11] MEDS: DEXTROSE 5% IN WATER 1,000 ML with SODIUM BICARB (1 MEQ/ML) 150 ML IV SCH (02:12)
[2024-10-11] MEDS: HYDROmorphone 2 MG/ML 1 ML SYRINGE IM PRN (03:05)
[2024-10-11 03:47] LABS: Basophils # (A) 0.03 10*3/uL (0.00-0.10); Basophils % (A) 0.3 %; Eosinophils # (A) 0.28 10*3/uL (0.04-0.35); Eosinophils % (A) 2.4 %; HGB 10.3 g/dL (12.0-15.0); Lymphocytes # (A) 0.99 10*3/uL (0.90-5.00); Lymphocytes % (A) 8.4 %; MCH 29.7 pg (27.0-32.0); MCHC 30.3 g/dL (32.0-37.0); Mean Platelet Volume 10.6 fL (9.5-12.2); Monocytes # (A) 1.06 10*3/uL (0.20-1.00); Neutrophils # (A) 9.35 10*3/uL (1.80-7.70); Platelet Count 217 10*3/uL (140-440); RBC 3.47 10*6/uL (4.10-5.20); RDW 15.9 % (11.5-14.5); WBC 11.82 10*3/uL (4.50-10.00)
[2024-10-11 04:01] LABS: African American GFR (CKD) 15 (>60 ml/min/1.73 sqM); Anion Gap 21 mmol/L; Blood Urea Nitrogen 44 mg/dL (7-17); Calcium 8.5 mg/dL (8.4-10.2); Chloride 108 mmol/L (98-107); Glucose 210 mg/dL (74-99); Non-African American GFR(CKD) 13 (>60 ml/min/1.73 sqM); Potassium 5.4 mmol/L (3.5-5.1); Sodium 135 mmol/L (137-145)
[2024-10-11 04:05] LABS: Carbon Dioxide 6 mmol/L (22-30)
[2024-10-11 06:45] LABS: Glucose,Whole Blood 252 mg/dL (70-110)
[2024-10-11] MEDS: NOREPINEPHRINE 4 MG in SODIUM CHLORIDE 0.9% 250 ML IV SCH (07:55)
[2024-10-11] MEDS: SODIUM CHLORIDE 0.9% 1,000 ML IV ONE ×3 (08:00→13:15)
[2024-10-11 08:02] LABS: ABG Base Excess -16.1 mmol/L; ABG HCO3 11 mmol/L (21-25); ABG Oxygen Saturation 97.8 % (94-97); ABG PCO2 28 mmHg (35-45); ABG PO2 99 mmHg (83-108); ABG TCO2 12 mmol/L (19-24); Allen Test Performed? Yes
[2024-10-11 08:04] LABS: ABG PH 7.19 (7.35-7.45)
[2024-10-11] MEDS: SODIUM BICARB 8.4% 50 ML SYR (1 MEQ/ML) IV STA (08:10)
--- NOTE | 2024-10-11 08:53 | XR ---
EXAMINATION TYPE: XR chest 1V portable DATE OF EXAM: 10/11/2024 4:14 AM COMPARISON: None. CLINICAL INDICATION: Female, 74 years old with history of sepsis, TECHNIQUE: XR chest 1V portable view(s) obtained semiupright position. FINDINGS: The heart size is mildly enlarged. The pulmonary vasculature is normal. The lungs are clear. IMPRESSION: 1. Mild cardiomegaly. 2. No acute pulmonary process radiographically apparent [facility], Workstation: [facility], 10/11/2024 8:50 AM
[2024-10-11] MEDS: PANTOPRAZOLE 40 MG TABLET PO SCH (08:58)
[2024-10-11] MEDS: ACETAMINOPHEN TAB 500 MG TAB PO PRN (08:58)
[2024-10-11] MEDS ORDERED: HYDROCORTISONE 20 MG TAB PO SCH (09:00)
[2024-10-11] MEDS: ERTAPENEM 0.5 GM in SODIUM CHLORIDE 0.9% 50 ML IVPB SCH (09:07)
[2024-10-11 09:10] LABS: Influenza A Not Detected (Not Detectd); Influenza B Not Detected (Not Detectd); RSV Not Detected (Not Detectd)
[2024-10-11] MEDS: APIXABAN 5 MG TAB PO SCH (10:56)
--- NOTE | 2024-10-11 10:56 | P.NPCON ---
History of Present Illness - Reason for Consult acute renal failure - History of Present Illness Reason for consultation: Acute kidney injury History of present illness: Patient is a 74-year-old female seen in renal consultation for acute kidney injury. Patient's creatinine dated September 02, 2024 was 0.9 and elevated at 4.23 yesterday. It is improved to 3.4 today. Patient came in the hospital due to na usea vomiting and abdominal pain going on for about 5 days. Oral intake has been poor the last few days. She does have history of diabetes. Denies history of coronary artery disease. Denies regular use of nonsteroidals. She has been on and off Levophed and is currently on a low-dose. Potassium was 6.5 on admission and is improved to 5.4 this morning. She is currently on bicarb drip. She received a liter bolus of normal saline this morning and has received a total of 3 L since admission. She was taking lisinopril and spironolactone as well as potassium supplementation outpatient. These are all currently held. Urine output is better and now about 50 cc/h. Vital signs are stable. General: No acute distress. HEENT: Head exam is unremarkable. LUNGS: No audible rhonchi or wheezes. HEART: Tachycardic. Abdomen: Mild generalized tenderness. EXTREMITITES: No edema. Past Medical History Past Medical History: Atrial Fibrillation, Diabetes Mellitus, Deep Vein Thrombosis (DVT), Fibromyalgia, Hyperlipidemia, Hypertension, Osteoarthritis (OA), Pneumonia, Renal Disease, Sleep Apnea/CPAP/BIPAP, Vascular Disorder Additional Past Medical History / Comment(s): Pt recently admitted to [facility] with R flank pain and UTI 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, DVT R calf in 1976, cardiac murmur, occipital neuraligia, balance issues-has narrowing of vessels "in the back of my head", vertigo, varicosities, states rt shoulder torn rotator cuff History of Any Multi-Drug Resistant Organisms: ESBL, MRSA, VRE Date of last positivie culture/infection: 6/9/21 ESBL;12/06/19 VRE; 03/10/11 MRSA MDRO Source:: Urine ESBL; Urine-VRE: MRSA 4th Right TOE Past Surgical History: Appendectomy, Back Surgery, Bladder Surgery, Breast Surgery, Cholecystectomy, Heart Catheterization, Hysterectomy, Orthopedic Surger y, Tonsillectomy Additional Past Surgical History / Comment(s): Lumbar fusions, bladder suspension, occipital nerve blocks, 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, R wrist/elbow nerve repair, bone removed R shoulder, 4th toe R foot partial amputation, bilateral feet/bunionectomies, R knee arthroscopies, R orbit decompression with ethmoidectomy and eyelid lift, EGD, colonoscopies, cystocopies, lithotripsy/stents, bilateral breast reduction, bilateral cataract removals, parathyroid surgery - April 2019, pain clinic procedures Past Anesthesia/Blood Transfusion Reactions: No Reported Reaction Additional Past Anesthesia/Blood Transfusion Reaction / Comment(s): never recieved blood Past Psychological History: Depression Additional Psychological History / Comment(s): Pt resides with her spouse. She uses a walker. She normally drives. She has a nebulizer, cpap, bsc, shower chair, bp machine, dexcom monitor system for her BG and insulin pump. Smoking Status: Never smoker Past Alcohol Use History: None Reported Additional Past Alcohol Use History / Comment(s): no alcohol Past Drug Use History: None Reported - Past Family History Father Family Medical History: Coronary Artery Disease (CAD), CVA/TIA, Diabetes Mellitus, Myocardial Infarction ([place]), Pneumonia Additional Family Medical History / Comment(s): Father at the age of 78yrs from [place] and pneumonia. Mother Family Medical History: Cancer, Congestive Heart Failure (CHF) Additional Family Medical History / Comment(s): Mother had uterine cancer. She recently at the age of 96yrs old from shingles. Medications and Allergies Home Medications Medication Instructions Recorded Confirmed Type Meclizine [Antivert] 25 mg PO BID PRN 11/26/17 10/11/24 History L.acidoph,Paracasei, B.lactis 2 cap PO BID 10/08/18 10/11/24 History [Probiotic] Melatonin 5 mg PO HS PRN 10/08/18 10/11/24 History Thiamine [Vitamin B-1] 100 mg PO HS 10/08/18 10/11/24 History Vitamin B-Complex Drops 1 drop PO BID 10/08/18 10/11/24 History C,E,Zinc,Copper 11/Bvcng3v/Lut 1 cap PO DAILY 06/25/20 10/11/24 History [Ocuvite Adult 50 Plus Softgel] Brimonidine Tartrate [Alphagan P 1 drop RIGHT EYE BID 11/26/20 10/11/24 History 0.2% Ophth Soln] Pantoprazole Sodium [Protonix] 40 mg PO BID 11/26/20 10/11/24 History Insulin Aspart (For Pump) [NovoLOG 0.01 unit SQ-PUMP CONTINUOUS 03/03/21 10/11/24 History (For Pump)] Cranberry Fruit Extract [Cranberry] 500 mg PO BID 05/25/22 10/11/24 History Multivit-Min/Folic Acid/Yls259 1 tab PO DAILY 05/25/22 10/11/24 History [Alive Premium Adult Multivit] Butalb/APAP/Caff 50-325-40Mg 1 tab PO Q6H PRN #12 tab 09/06/22 10/11/24 Rx [Fioricet 50-325-40] Dhea 50mg With B-12 2500mcg 1 tab PO HS 04/27/23 10/11/24 History Folic Acid 800mcg With Folate 1 tab PO HS 04/27/23 10/11/24 History 1333mg Magnesium Oxide [Mag-Ox] 400 mg PO BID 09/20/23 10/11/24 History buPROPion XL [Wellbutrin XL] 300 mg PO DAILY 09/20/23 10/11/24 History Iron 27mg 27 mg PO DAILY 09/23/23 10/11/24 History Turmeric Complex 550mg 550 mg PO HS 09/23/23 10/11/24 History Apixaban [Eliquis] 5 mg PO BID tab 09/28/23 10/11/24 Rx HYDROcodone/APAP 10-325MG [[place] 1 tab PO Q6H PRN #12 tab 09/28/23 10/11/24 Rx 10-325] ARIPiprazole [Abilify] 10 mg PO HS 03/10/24 10/11/24 History Metoprolol Succinate [Toprol XL] 100 mg PO HS 03/10/24 10/11/24 History Potassium Gluconate 99 mg PO DAILY 03/10/24 10/11/24 History Rosuvastatin Calcium [Crestor] 5 mg PO HS 03/10/24 10/11/24 History Scopolamine [Scopolamine 1 MG/72 1 patch TRANSDERM Q72H PRN 03/10/24 10/11/24 History HR patch] Spironolactone [Aldactone] 50 mg PO DAILY 03/10/24 10/11/24 History Aspirin [Adult Low Dose Aspirin EC] 81 mg PO DAILY 05/06/24 10/11/24 History Promethazine [Phenergan] 25 mg PO BID PRN 05/06/24 10/11/24 History hydroCHLOROthiazide 25 mg PO DAILY 05/06/24 10/11/24 History Cyanocobalamin (Vitamin B-12) 2,500 mcg PO DAILY 07/19/24 10/11/24 History [Vitamin B-12] Dorzolamide 2% [Trusopt 2%] 1 drops RIGHT EYE BID 07/19/24 10/11/24 History lisinopriL [Zestril] 30 mg PO DAILY@1200 07/19/24 10/11/24 History Nystatin 100,000 Unit/gm Powd 1 applic TOPICAL BID 7 Days #1 each 07/26/24 10/11/24 Rx [Mycostatin Powder] Ondansetron [Zofran] 4 mg PO TID PRN #20 tab 07/26/24 10/11/24 Rx amLODIPine [Norvasc] 10 mg PO DAILY #30 tab 07/26/24 10/11/24 Rx busPIRone HCl [Buspar] 10 mg PO BID #0 07/26/24 10/11/24 Rx Albuterol Nebulized [Ventolin 2.5 mg INHALATION RT-QID PRN 10/11/24 10/11/24 History Nebulized] Hydrocortisone [Cortef] 10 mg PO HS 10/11/24 10/11/24 History Hydrocortisone [Cortef] 20 mg PO DAILY 10/11/24 10/11/24 History Allergies Allergy/AdvReac Type Severity Reaction Status Date / Time butorphanol tartrate Allergy BLISTERS Verified 10/11/24 08:30 [From Stadol] IN MOUTH ceftriaxone [From Rocephin] Allergy Rash/Hives Verified 10/11/24 08:30 clarithromycin [From Biaxin] Allergy Rash/Hives Verified 10/11/24 08:30 clindamycin Allergy Rash/Hives Verified 10/11/24 08:30 codeine Allergy Rash/Hives Verified 10/11/24 08:30 ergotamine tartrate Allergy Rash/Hives Verified 10/11/24 08:30 [From Cafergot] erythromycin base Allergy RASH, GI Verified 10/11/24 08:30 [From E-Mycin] SYMPTOMS ketorolac tromethamine Allergy Rash/Hives Verified 10/11/24 08:30 [From Toradol] liraglutide [From Victoza] Allergy Rash/Hives Verified 10/11/24 08:30 morphine Allergy Rash/Hives Verified 10/11/24 08:30 Penicillins Allergy Rash/Hives Verified 10/11/24 08:30 on upper body pentazocine lactate Allergy SEVERE Verified 10/11/24 08:30 [From Talwin] BLISTERS IN MOUTH pregabalin [From Lyrica] Allergy Rash/Hives Verified 10/11/24 08:30 propoxyphene HCl Allergy Rash/Hives Verified 10/11/24 08:30 [From Darvon] Sulfa (Sulfonamide Allergy Rash/Hives Verified 10/11/24 08:30 Antibiotics) sulfamethoxazole Allergy Rash/Hives Verified 10/11/24 08:30 [From Bactrim] tizanidine Allergy Unknown Verified 10/11/24 08:30 tramadol Allergy Unknown Verified 10/11/24 08:30 trimethoprim [From Bactrim] Allergy Rash/Hives Verified 10/11/24 08:30 vancomycin Allergy lip Verified 10/11/24 08:30 swelling metoclopramide [From Reglan] AdvReac Hallucinati Verified 10/11/24 08:30 ons monosodium glutamate [MSG] AdvReac Nausea & Verified 10/11/24 08:30 Vomiting nalbuphine HCl [From Nubain] AdvReac Nausea & Verified 10/11/24 08:30 Vomiting Physical Exam Vitals: Vital Signs Temp Pulse Resp BP Pulse Ox 10/11/24 10:30 122 H 28 H 98 10/11/24 10:19 123 H 16 98 10/11/24 09:15 128 H 15 103/64 97 10/11/24 09:00 129 H 29 H 103/64 98 10/11/24 08:45 128 H 21 103/64 97 10/11/24 08:30 126 H 28 H 103/64 96 10/11/24 08:15 129 H 26 H 83/39 98 10/11/24 08:00 130 H 32 H 63/31 97 10/11/24 07:45 101.1 F H 131 H 22 64/37 97 10/11/24 07:30 129 H 33 H 76/56 10/11/24 07:15 137 H 44 H 76/56 10/11/24 07:00 65 H 81/47 93 L 10/11/24 06:00 125 H 34 H 92/43 92 L 10/11/24 05:00 122 H 21 86/54 94 L 10/11/24 04:00 98.7 F 120 H 20 91/48 93 L 10/11/24 03:00 123 H 41 H 124/80 10/11/24 02:00 124 H 30 H 124/80 97 10/11/24 01:00 118 H 25 H 108/55 95 10/11/24 00:26 118 H 20 99/54 10/11/24 00:00 98.7 F 115 H 22 99/54 97 10/10/24 23:21 98.7 F 121 H 30 H 99/54 10/10/24 23:18 113 H 25 H 10/10/24 23:08 98.8 F 112 H 20 101/52 97 10/10/24 20:30 105 H 20 122/85 97 10/10/24 19:39 92 10/10/24 19:33 90 10/10/24 19:30 96 20 83/54 95 10/10/24 19:00 96 24 92/51 97 10/10/24 18:10 89 24 100/52 10/10/24 17:41 89 20 88/38 94 L 10/10/24 17:15 98.6 F 52 L 20 74/64 97 Intake and Output 10/10/24 10/11/24 10/11/24 22:59 06:59 14:59 Intake Total 1210 1490 Output Total 50 300 115 Balance -50 910 1375 Intake: IV 390 Dextrose 5% in Water 1, 390 000 ml @ 130 mls/hr IV . Q8H51M KIARA with Sodium Bicarb (1 Meq/ml) 150 ml Rx#:[id number] Intake, IV Titration 1060 1000 Amount Dextrose 5% in Water 1, 780 000 ml @ 130 mls/hr IV . Q8H51M KIARA with Sodium Bicarb (1 Meq/ml) 150 ml Rx#:[id number] Levofloxacin 750Mg-D5w 150 Pmx 750 mg In Dextrose/ Water 1 150ml.bag @ 100 mls/hr IVPB ONCE STA Rx#: [id number] Sodium Chloride 0.9% 1, 130 000 ml @ 130 mls/hr IV . Q7H42M KIARA Rx#:[id number] Sodium Chloride 0.9% 1, 1000 000 ml @ 999 mls/hr IV . Q1H1M STA Rx#:[id number] Oral 150 100 Output: Urine 50 300 115 Uretheral (Lai) 50 Other: Voiding Method External Catheter # Voids 0 Weight 65.771 kg 78.4 kg ABP, PAP, CO, CI - Last 8 Hours Arterial Blood Pressure 109/48 Arterial Blood Pressure 102/49 Arterial Blood Pressure 92/38 Arterial Blood Pressure 109/49 Arterial Blood Pressure 118/42 Results - Lab Results Most recent lab results ABG pH 7.19 (7.35-7.45) L* 10/11/24 07:59 ABG pCO2 28 mmHg (35-45) L 10/11/24 07:59 ABG pO2 99 mmHg (83-108) 10/11/24 07:59 ABG HCO3 11 mmol/L (21-25) L 10/11/24 07:59 ABG O2 Saturation 97.8 % (94-97) H 10/11/24 07:59 Calcium 8.5 mg/dL (8.4-10.2) 10/11/24 02:53 Magnesium 1.7 mg/dL (1.6-2.3) 10/10/24 17:56 10/11/24 02:53 10/11/24 02:53 Assessment and Plan Plan: Assessment: 1. Acute kidney injury secondary to ATN secondary to hypovolemia, shock. Creatinine 4.2 on admission and is 3.4 today. Baseline creatinine near 0.9. No hydronephrosis noted on imaging. 2. Metabolic acidosis secondary to acute kidney injury and GI losses. 3. Hyperkalemia secondary to acute kidney injury, acidosis, lisinopril/Aldactone. Better. 4. Septic shock secondary to UTI. 5. History of adrenal sufficiency maintained on Solu-Cortef. Plan: Maintain bicarb drip. Wean Levophed. Will give additional sodium bicarb IV push. Repeat potassium level this afternoon. Continue to monitor renal function and urine output. Thank you for the consultation. I will continue to follow the patient with you during her hospital stay.
[2024-10-11] MEDS: HYDROCORTISONE SUCCINATE 100 MG/2 ML VIAL IV SCH (10:57)
[2024-10-11] MEDS: NOREPINEPHRINE 8 MG in SODIUM CHLORIDE 0.9% 250 ML IV SCH (12:00)
[2024-10-11] MEDS: VASOPRESSIN 60 UNIT in SODIUM CHLORIDE 0.9% 150 ML IV SCH (12:00)
--- NOTE | 2024-10-11 12:00 | XR ---
EXAMINATION TYPE: XR chest 1V confirm line plcmt DATE OF EXAM: 10/11/2024 11:54 AM COMPARISON: Chest radiographs from 10/11/2024 TECHNIQUE: XR chest 1V confirm line [facility] Portable AP radiograph of the chest. CLINICAL INDICATION:Female, 74 years old with history of line placement; FINDINGS: Lungs/Pleura: There is no evidence of pleural effusion, focal consolidation, or pneumothorax. Pulmonary vascularity: Unremarkable. Heart/mediastinum: Cardiomediastinal silhouette is enlarged and stable. Musculoskeletal: No acute osseous pathology. Cervical fusion hardware. Redemonstration of osteolysis of the distal right clavicle. Other findings: None Lines/Tubes: Interval placement of left subclavian approach central venous catheter with distal tip in the region of the low SVC. IMPRESSION: Interval placement of left subclavian approach central venous catheter with distal tip in the region of the low SVC. No pneumothorax. [facility], , 10/11/2024 11:58 AM
[2024-10-11 12:32] LABS: Glucose,Whole Blood 452 mg/dL (70-110)
[2024-10-11] MEDS ORDERED: DEXTROSE 50% SYRINGE 50 ML IVP PRN ×4 (13:08→17:15)
[2024-10-11 13:16] LABS: Glucose,Whole Blood 415 mg/dL (70-110)
[2024-10-11] MEDS: INSULIN LISPRO (HumaLOG) 100 UNIT/ML 10 mL VL SQ SCH ×2 (13:18→17:19)
--- NOTE | 2024-10-11 14:11 | P.PCN ---
Date of Procedure: 10/11/24 Preoperative Diagnosis: Septic shock Postoperative Diagnosis: Septic shock Procedure(s) Performed: Central Line, arterial line Anesthesia: local Surgeon: Alton Frye Estimated Blood Loss (ml): 0 IV fluids (ml): 0 Condition: critical Disposition: ICU Operative Findings: Arterial line insertion Indication: Hemodynamic monitoring. A time-out was completed verifying correct patient, procedure, site, positioning, and implant(s) or special equipment if applicable. Allens test was performed to ensure adequate perfusion. The patients left wrist was prepped and draped in sterile fashion. 1% Lidocaine was used to anesthetize the area. An 18G Arrow arterial line was introduced into the left radial artery. The catheter was threaded over the guide wire and the needle was removed with appropriate pulsatile blood return. Blood loss was minimal. The catheter was then sutured in place to the skin and a sterile dressing applied. Perfusion to the extremity distal to the point of catheter insertion was checked and found to be adequate. The patient tolerated the procedure well and there were no complications. Central line insertion Indication: Hemodynamic monitoring/Intravenous access. A time-out was completed verifying correct patient, procedure, site, positioning, and implant(s) or special equipment if applicable. The patient was placed in a dependent position appropriate for triple lumen catheter placement based on the vein to be cannulated. The patient's left subclavian area was prepped and draped in sterile fashion. 1% Lidocaine was used to anesthetize the surrounding skin area. A triple lumen 9F Cordis catheter was introduced into the internal jugular vein using Seldinger technique. The catheter was threaded smoothly over the guide wire and appropriate blood return was obtained. Each lumen of the catheter was evacuated of air and flushed with sterile saline. The catheter was then sutured in place to the skin and a sterile dressing applied. Perfusion to the extremity distal to the point of catheter insertion was checked and found to be adequate.
[2024-10-11] MEDS: HYDROmorphone 2 MG/ML 1 ML SYRINGE IV PRN (14:47)
[2024-10-11 16:53] LABS: Glucose,Whole Blood 409 mg/dL (70-110)
[2024-10-11] MEDS: INSULIN REGULAR 100 UNIT in SODIUM CHLORIDE 0.9% 100 ML IV SCH (17:46)
[2024-10-11 18:04] LABS: Glucose,Whole Blood 477 mg/dL (70-110)
[2024-10-11 18:24] LABS: African American GFR (CKD) 21 (>60 ml/min/1.73 sqM); Anion Gap 16 mmol/L; Blood Urea Nitrogen 37 mg/dL (7-17); Calcium 6.9 mg/dL (8.4-10.2); Carbon Dioxide 16 mmol/L (22-30); Chloride 106 mmol/L (98-107); Glucose 452 mg/dL (74-99); Non-African American GFR(CKD) 18 (>60 ml/min/1.73 sqM); Potassium 4.8 mmol/L (3.5-5.1); Sodium 138 mmol/L (137-145)
[2024-10-11 18:52] LABS: Glucose,Whole Blood 451 mg/dL (70-110)
[2024-10-11] MEDS: diphenhydrAMINE 50 MG/ML 1 ML VIAL IVP PRN (20:00)
[2024-10-11 20:54] LABS: Glucose,Whole Blood 353 mg/dL (70-110)
[2024-10-11 22:03] LABS: Glucose,Whole Blood 316 mg/dL (70-110)
[2024-10-11 22:54] LABS: Glucose,Whole Blood 297 mg/dL (70-110)
[2024-10-11] MEDS: MELATONIN 3 MG TABLET PO PRN (23:26)
[2024-10-11 23:50] LABS: Glucose,Whole Blood 188 mg/dL (70-110)
[2024-10-12 01:15] LABS: Glucose,Whole Blood 165 mg/dL (70-110)
[2024-10-12 02:55] LABS: Glucose,Whole Blood 114 mg/dL (70-110)
[2024-10-12 04:03] LABS: Glucose,Whole Blood 134 mg/dL (70-110)
[2024-10-12 05:05] LABS: Glucose,Whole Blood 211 mg/dL (70-110)
[2024-10-12 05:57] LABS: Basophils # (A) 0.01 10*3/uL (0.00-0.10); Basophils % (A) 0.1 %; HCT 28.1 % (37.2-46.3); HGB 9.2 g/dL (12.0-15.0); Lymphocytes # (A) 0.48 10*3/uL (0.90-5.00); Lymphocytes % (A) 4.3 %; MCH 30.3 pg (27.0-32.0); MCHC 32.7 g/dL (32.0-37.0); Mean Platelet Volume 10.7 fL (9.5-12.2); Monocytes # (A) 0.78 10*3/uL (0.20-1.00); Monocytes % (A) 7.1 %; Neutrophils % (A) 87.7 %; Platelet Count 200 10*3/uL (140-440); RBC 3.04 10*6/uL (4.10-5.20); RDW 15.4 % (11.5-14.5); WBC 11.06 10*3/uL (4.50-10.00)
[2024-10-12 06:04] LABS: Glucose,Whole Blood 167 mg/dL (70-110)
[2024-10-12 06:05] LABS: MCV 92.4 fL (80.0-97.0)
[2024-10-12 06:52] LABS: Glucose,Whole Blood 145 mg/dL (70-110)
[2024-10-12 06:52] LABS: African American GFR (CKD) 30 (>60 ml/min/1.73 sqM); Anion Gap 9 mmol/L; Blood Urea Nitrogen 37 mg/dL (7-17); Calcium 7.2 mg/dL (8.4-10.2); Carbon Dioxide 30 mmol/L (22-30); Chloride 101 mmol/L (98-107); Glucose 176 mg/dL (74-99); Non-African American GFR(CKD) 26 (>60 ml/min/1.73 sqM); Sodium 140 mmol/L (137-145)
[2024-10-12 08:19] LABS: Glucose,Whole Blood 194 mg/dL (70-110)
[2024-10-12 09:06] LABS: Glucose,Whole Blood 179 mg/dL (70-110)
[2024-10-12] MEDS ORDERED: SODIUM CHLORIDE 0.9% 1,000 ML IV SCH (10:00)
[2024-10-12] MEDS: SODIUM CHLORIDE 0.9% 1,000 ML IV SCH (10:25)
[2024-10-12 10:30] LABS: Glucose,Whole Blood 158 mg/dL (70-110)
[2024-10-12] MEDS: busPIRone HCl 10 MG TAB PO SCH (10:43)
[2024-10-12] MEDS: buPROPion XL 300 MG TAB.ER.24H PO SCH (10:43)
[2024-10-12] MEDS: amLODIPine 10 MG TAB PO SCH (10:43)
--- NOTE | 2024-10-12 11:31 | P.PN ---
Subjective Patient is seen for follow-up for acute kidney injury. Maintained on bicarb drip Renal function has improved with serum creatinine down to 1.8 mg/dL. Patient is complaining of back pain. Good urine output Remains on low-dose Levophed Objective - Vital Signs Vital signs: Vital Signs Temp 98.3 F 10/12/24 08:00 Pulse 94 10/12/24 11:00 Resp 20 10/12/24 11:00 BP 96/38 10/12/24 03:00 Pulse Ox 96 10/12/24 11:00 FiO2 Intake & Output 10/11/24 10/12/24 10/12/24 18:59 06:59 18:59 Intake Total 4879.295 2085.511 461.971 Output Total 725 885 95 Balance 4154.295 1200.511 366.971 Weight 82.5 kg Intake: IV 1430 1930 450 0.9 KVO 240 60 Dextrose 5% in Water 1, 1430 1690 390 000 ml @ 130 mls/hr IV . Q8H51M KIARA with Sodium Bicarb (1 Meq/ml) 150 ml Rx#:[id number] Intake, IV Titration 3199.295 105.511 11.971 Amount Insulin Regular 100 unit 5.17 101.416 11.971 In Sodium Chloride 0.9% 100 ml @ Titrate IV .Q0M KIARA Rx#:[id number] Norepinephrine 4 mg In 29.721 Sodium Chloride 0.9% 250 ml @ 0.03 MCG/KG/MIN 8. 961 mls/hr IV .Q24H KIARA Rx#:[id number] Norepinephrine 8 mg In 148.772 4.095 Sodium Chloride 0.9% 250 ml @ 0.03 MCG/KG/MIN 4. 551 mls/hr IV .Q24H KIARA Rx#:[id number] Sodium Chloride 0.9% 1, 2000 000 ml @ 999 mls/hr IV . Q1H1M ONE Rx#:[id number] Sodium Chloride 0.9% 1, 1000 000 ml @ 999 mls/hr IV . Q1H1M STA Rx#:[id number] Vasopressin 60 unit In 15.632 Sodium Chloride 0.9% 150 ml @ 0.03 UNITS/MIN 4.59 mls/hr IV .Q24H KIARA Rx#: [id number] Oral 250 50 Output: Urine 725 885 95 Other: Voiding Method Indwelling Catheter Indwelling Catheter Indwelling Catheter External Catheter ABP, PAP, CO, CI - Last Documented Arterial Blood Pressure 137/59 - Exam Patient is awake, comfortable, no acute distress. Examination of the heart S1 and S2 Examination of the lungs bilateral breath sounds are heard Abdomen is soft obese Examination of lower extremities shows trace edema [employer]ANQU[employer]ENDANT exam shows patient is moving all 4 extremities. - Labs CBC & Chem 7: 10/12/24 05:00 10/12/24 05:00 Labs: Abnormal Lab Results - Last 24 Hours (Table) 10/11/24 10/11/24 10/11/24 Range/Units 12:30 13:07 16:51 WBC (4.50-10.00) 10*3/uL RBC (4.10-5.20) 10*6/uL Hgb (12.0-15.0) g/dL Hct (37.2-46.3) % Immature Gran # (0.00-0.04) 10*3/uL Neutrophils # (1.80-7.70) 10*3/uL Lymphocytes # (0.90-5.00) 10*3/uL Eosinophils # (0.04-0.35) 10*3/uL Carbon Dioxide (22-30) mmol/L BUN (7-17) mg/dL Creatinine (0.52-1.04) mg/dL Glucose (74-99) mg/dL POC Glucose (mg/dL) 452 H 415 H 409 H (70-110) mg/dL Hemoglobin A1c (<=6.0) % Calcium (8.4-10.2) mg/dL 10/11/24 10/11/24 10/11/24 Range/Units 17:30 17:44 18:50 WBC (4.50-10.00) 10*3/uL RBC (4.10-5.20) 10*6/uL Hgb (12.0-15.0) g/dL Hct (37.2-46.3) % Immature Gran # (0.00-0.04) 10*3/uL Neutrophils # (1.80-7.70) 10*3/uL Lymphocytes # (0.90-5.00) 10*3/uL Eosinophils # (0.04-0.35) 10*3/uL Carbon Dioxide 16 L (22-30) mmol/L BUN 37 H (7-17) mg/dL Creatinine 2.52 H (0.52-1.04) mg/dL Glucose 452 H (74-99) mg/dL POC Glucose (mg/dL) 477 H 451 H (70-110) mg/dL Hemoglobin A1c (<=6.0) % Calcium 6.9 L (8.4-10.2) mg/dL 10/11/24 10/11/24 10/11/24 Range/Units 20:52 22:02 22:53 WBC (4.50-10.00) 10*3/uL RBC (4.10-5.20) 10*6/uL Hgb (12.0-15.0) g/dL Hct (37.2-46.3) % Immature Gran # (0.00-0.04) 10*3/uL Neutrophils # (1.80-7.70) 10*3/uL Lymphocytes # (0.90-5.00) 10*3/uL Eosinophils # (0.04-0.35) 10*3/uL Carbon Dioxide (22-30) mmol/L BUN (7-17) mg/dL Creatinine (0.52-1.04) mg/dL Glucose (74-99) mg/dL POC Glucose (mg/dL) 353 H 316 H 297 H (70-110) mg/dL Hemoglobin A1c (<=6.0) % Calcium (8.4-10.2) mg/dL 10/11/24 10/12/24 10/12/24 Range/Units 23:48 01:14 02:54 WBC (4.50-10.00) 10*3/uL RBC (4.10-5.20) 10*6/uL Hgb (12.0-15.0) g/dL Hct (37.2-46.3) % Immature Gran # (0.00-0.04) 10*3/uL Neutrophils # (1.80-7.70) 10*3/uL Lymphocytes # (0.90-5.00) 10*3/uL Eosinophils # (0.04-0.35) 10*3/uL Carbon Dioxide (22-30) mmol/L BUN (7-17) mg/dL Creatinine (0.52-1.04) mg/dL Glucose (74-99) mg/dL POC Glucose (mg/dL) 188 H 165 H 114 H (70-110) mg/dL Hemoglobin A1c (<=6.0) % Calcium (8.4-10.2) mg/dL 10/12/24 10/12/24 10/12/24 Range/Units 04:01 05:00 05:00 WBC 11.06 H (4.50-10.00) 10*3/uL RBC 3.04 L (4.10-5.20) 10*6/uL Hgb 9.2 L (12.0-15.0) g/dL Hct 28.1 L (37.2-46.3) % Immature Gran # 0.09 H (0.00-0.04) 10*3/uL Neutrophils # 9.70 H (1.80-7.70) 10*3/uL Lymphocytes # 0.48 L (0.90-5.00) 10*3/uL Eosinophils # 0.00 L (0.04-0.35) 10*3/uL Carbon Dioxide (22-30) mmol/L BUN (7-17) mg/dL Creatinine (0.52-1.04) mg/dL Glucose (74-99) mg/dL POC Glucose (mg/dL) 134 H (70-110) mg/dL Hemoglobin A1c 7.5 H (<=6.0) % Calcium (8.4-10.2) mg/dL 10/12/24 10/12/24 10/12/24 Range/Units 05:00 05:03 06:03 WBC (4.50-10.00) 10*3/uL RBC (4.10-5.20) 10*6/uL Hgb (12.0-15.0) g/dL Hct (37.2-46.3) % Immature Gran # (0.00-0.04) 10*3/uL Neutrophils # (1.80-7.70) 10*3/uL Lymphocytes # (0.90-5.00) 10*3/uL Eosinophils # (0.04-0.35) 10*3/uL Carbon Dioxide (22-30) mmol/L BUN 37 H (7-17) mg/dL Creatinine 1.86 H (0.52-1.04) mg/dL Glucose 176 H (74-99) mg/dL POC Glucose (mg/dL) 211 H 167 H (70-110) mg/dL Hemoglobin A1c (<=6.0) % Calcium 7.2 L (8.4-10.2) mg/dL 10/12/24 10/12/24 10/12/24 Range/Units 06:51 08:18 09:05 WBC (4.50-10.00) 10*3/uL RBC (4.10-5.20) 10*6/uL Hgb (12.0-15.0) g/dL Hct (37.2-46.3) % Immature Gran # (0.00-0.04) 10*3/uL Neutrophils # (1.80-7.70) 10*3/uL Lymphocytes # (0.90-5.00) 10*3/uL Eosinophils # (0.04-0.35) 10*3/uL Carbon Dioxide (22-30) mmol/L BUN (7-17) mg/dL Creatinine (0.52-1.04) mg/dL Glucose (74-99) mg/dL POC Glucose (mg/dL) 145 H 194 H 179 H (70-110) mg/dL Hemoglobin A1c (<=6.0) % Calcium (8.4-10.2) mg/dL 10/12/24 Range/Units 10:18 WBC (4.50-10.00) 10*3/uL RBC (4.10-5.20) 10*6/uL Hgb (12.0-15.0) g/dL Hct (37.2-46.3) % Immature Gran # (0.00-0.04) 10*3/uL Neutrophils # (1.80-7.70) 10*3/uL Lymphocytes # (0.90-5.00) 10*3/uL Eosinophils # (0.04-0.35) 10*3/uL Carbon Dioxide (22-30) mmol/L BUN (7-17) mg/dL Creatinine (0.52-1.04) mg/dL Glucose (74-99) mg/dL POC Glucose (mg/dL) 158 H (70-110) mg/dL Hemoglobin A1c (<=6.0) % Calcium (8.4-10.2) mg/dL Microbiology - Last 24 Hours (Table) 10/10/24 18:50 Urine Culture - Preliminary Urine,Clean Catch Gram Neg Bacilli Assessment and Plan Assessment: 1. Acute kidney injury secondary to ATN secondary to hypovolemia, shock. Creatinine 4.2 on admission and is 1.8 today. Baseline creatinine near 0.9. No hydronephrosis noted on imaging. 2. Metabolic acidosis secondary to acute kidney injury and GI losses. 3. Hyperkalemia secondary to acute kidney injury, acidosis, lisinopril/Aldactone. Better. 4. Septic shock secondary to UTI. 5. History of adrenal sufficiency maintained on Solu-Cortef. Plan: DC bicarb drip Can switch to normal saline Can switch to home dose of hydrocortisone.
[2024-10-12] MEDS: HYDROcodone/APAP 10-325MG 1 EACH TAB PO PRN (12:01)
[2024-10-12 12:16] LABS: Glucose,Whole Blood 104 mg/dL (70-110)
--- NOTE | 2024-10-12 13:35 | P.PN ---
Subjective Progress Note Date: 10/12/24 Patient is a 74-year-old female with past medical history significant for hypertension, hyperlipidemia, diabetes mellitus, atrial fibrillation anticoagulated on Eliquis, obstructive sleep apnea with home CPAP, COPD, adrenal insufficiency, and recurrent urinary tract infections. Of note, patient had a recent hospitalization July, for urinary tract infection. Urine culture was remarkable for Klebsiella pneumonia at that time. No further treatment with antibiotics following her hospitalization in July. Presents the emergency department history evening with concerns of UTI. She was also noted to be hypotensive and tachycardic. With elevated WBC count. Workup in the emergency department including CT of the abdomen and pelvis which did not show any suspicious bowel obstructions or ileus. Bilateral renal cysts were noted. No stones or hydronephrosis. Found to be in acute kidney injury/failure. Creatinine 4.23. Urinalysis remarkable for pyuria and bacteriuria. Urine culture was sent. Potassium was critically elevated at 6.5. This was treated in the ED with a combination of insulin 10 units regular, D50 W amp, 1 g calcium gluconate, concentrated albuterol treatment, as well as 5 g of Lokelma. EKG reviewed, sinus rhythm, rate 94 bpm, no QRS widening or peaked T waves. Nonspecific mild ST depressions. She does take lisinopril, Aldactone, as well as, potassium supplements at home. Remaining blood work remarkable for a CBC with a WBC count of 15.7, hemoglobin 12.7, platelets 299. CMP: Sodium 135, potassium 6.5, chloride 105, serum bicarb 10, anion gap 20, BUN 47, creatinine 4.23, glucose 151. Lactic 1.6. LFTs not elevated. Troponin 1.51, probably related to poor renal clearance. Patient is currently being evaluated in the intensive care unit. She is alert and oriented. States over the last week she has had burning with urination accompanied with urinary frequency and right flank pain. Denies any hematuria. No documented fevers but has been chilled. She has been eating and drinking without issue up until 24 to 48 hours prior to ER presentation where she developed some nausea and vomiting with with eating and drinking. Denies hematochezia, melanotic stools, hematemesis. Denies abdominal pain. Mucous membranes appear dry. Blood pressures improved with fluid resuscitation. She has been fluid resuscitated with a total of 2 L normal saline in the ED and continues on normal saline at 130 mL/h. Heart rate is tachycardic. Not requiring any vasopressors at the moment. Empirically covered with Levaquin in the ED. She has multiple medication/antibiotic allergies. Repeat labs are pending. On 10/12/2024, the patient is being seen for a follow-up. The patient is currently off pressors. Hemodynamically stable. Vasopressin has been disco ntinued. Norepinephrine has been discontinued. Patient remains on a bicarb infusion at rate of 100 cc an hour. Fluid balance is +5.3 L negative patient remains on 3 Suboxone by nasal cannula. The patient's urine culture is showing gram-negative bacillus and the blood culture still pending. The patient remains on IV Invanz. The patient is also on stress dose hydrocortisone. The bicarb infusion will be discontinued the patient will be switched to a normal saline rate of 50 cc an hour. No other significant events overnight. She is awake and alert. Aspirin, Wellbutrin and BuSpar to be resumed. Blood sugars under better control for now. Renal function continues to improve and today's blood work shows a creatinine of 1.8 with a BUN of 37. Sodium is at 140 with a potassium level of 4. Serum bicarb is at 30,. White cell count 11, hemoglobin 9.2 and platelet count of 200. Objective - Vital Signs Vital signs: Vital Signs Temp 98.3 F 10/12/24 08:00 Pulse 97 10/12/24 09:00 Resp 16 10/12/24 09:00 BP 96/38 10/12/24 03:00 Pulse Ox 96 10/12/24 09:00 FiO2 Intake & Output 10/11/24 10/12/24 10/12/24 18:59 06:59 18:59 Intake Total 4879.295 2085.511 311.971 Output Total 725 885 50 Balance 4154.295 1200.511 261.971 Weight 82.5 kg Intake: IV 1430 1930 300 0.9 KVO 240 40 Dextrose 5% in Water 1 1430 1690 260 000 ml @ 130 mls/hr IV . Q8H51M KIARA with Sodium Bicarb (1 Meq/ml) 150 ml Rx#:[id number] Intake, IV Titration 3199.295 105.511 11.971 Amount Insulin Regular 100 unit 5.17 101.416 11.971 In Sodium Chloride 0.9% 100 ml @ Titrate IV .Q0M KIARA Rx#:[id number] Norepinephrine 4 mg In 29.721 Sodium Chloride 0.9% 250 ml @ 0.03 MCG/KG/MIN 8. 961 mls/hr IV .Q24H KIARA Rx#:[id number] Norepinephrine 8 mg In 148.772 4.095 Sodium Chloride 0.9% 250 ml @ 0.03 MCG/KG/MIN 4. 551 mls/hr IV .Q24H KIARA Rx#:[id number] Sodium Chloride 0.9% 1, 2000 000 ml @ 999 mls/hr IV . Q1H1M ONE Rx#:[id number] Sodium Chloride 0.9% 1, 1000 000 ml @ 999 mls/hr IV . Q1H1M STA Rx#:[id number] Vasopressin 60 unit In 15.632 Sodium Chloride 0.9% 150 ml @ 0.03 UNITS/MIN 4.59 mls/hr IV .Q24H KIARA Rx#: [id number] Oral 250 50 Output: Urine 725 885 50 Other: Voiding Method Indwelling Catheter Indwelling Catheter Indwelling Catheter External Catheter ABP, PAP, CO, CI - Last Documented Arterial Blood Pressure 143/63 - Exam GENERAL EXAM: Alert, 74-year-old female, rigors, fairly comfortable in no apparent distress. The patient is, comfortable on 3 L of O2 nasal cannula. The patient has a left subclavian triple-lumen catheter in place. HEAD: Normocephalic and atraumatic EYES: Normal reaction of pupils, equal size. NOSE: Clear with pink turbinates. THROAT: No erythema or exudates. Dry mucous membranes. NECK: No masses, no JVD. CHEST: No chest wall deformity. LUNGS: Equal air entry with no crackles, wheeze, rhonchi or dullness. On room air. No conversational dyspnea or accessory muscle use.. CVS: S1 and S2 normal with no audible murmur, regular rhythm. No extra heart sounds ABDOMEN: No hepatosplenomegaly, active bowel sounds, no guarding or rigidity. SPINE: No scoliosis or deformity. Right CVA tenderness. SKIN: Erythemic rash over the anterior chest CENTRAL NERVOUS SYSTEM: No focal deficits, tone is normal in all 4 extremities. EXTREMITIES: There is no peripheral edema, clubbing, or cyanosis. Peripheral pulses are intact. - Labs CBC & Chem 7: 10/12/24 05:00 10/12/24 05:00 Labs: Abnormal Lab Results - Last 24 Hours (Table) 10/11/24 10/11/24 10/11/24 Range/Units 12:30 13:07 16:51 WBC (4.50-10.00) 10*3/uL RBC (4.10-5.20) 10*6/uL Hgb (12.0-15.0) g/dL Hct (37.2-46.3) % Immature Gran # (0.00-0.04) 10*3/uL Neutrophils # (1.80-7.70) 10*3/uL Lymphocytes # (0.90-5.00) 10*3/uL Eosinophils # (0.04-0.35) 10*3/uL Carbon Dioxide (22-30) mmol/L BUN (7-17) mg/dL Creatinine (0.52-1.04) mg/dL Glucose (74-99) mg/dL POC Glucose (mg/dL) 452 H 415 H 409 H (70-110) mg/dL Hemoglobin A1c (<=6.0) % Calcium (8.4-10.2) mg/dL 10/11/24 10/11/24 10/11/24 Range/Units 17:30 17:44 18:50 WBC (4.50-10.00) 10*3/uL RBC (4.10-5.20) 10*6/uL Hgb (12.0-15.0) g/dL Hct (37.2-46.3) % Immature Gran # (0.00-0.04) 10*3/uL Neutrophils # (1.80-7.70) 10*3/uL Lymphocytes # (0.90-5.00) 10*3/uL Eosinophils # (0.04-0.35) 10*3/uL Carbon Dioxide 16 L (22-30) mmol/L BUN 37 H (7-17) mg/dL Creatinine 2.52 H (0.52-1.04) mg/dL Glucose 452 H (74-99) mg/dL POC Glucose (mg/dL) 477 H 451 H (70-110) mg/dL Hemoglobin A1c (<=6.0) % Calcium 6.9 L (8.4-10.2) mg/dL 10/11/24 10/11/24 10/11/24 Range/Units 20:52 22:02 22:53 WBC (4.50-10.00) 10*3/uL RBC (4.10-5.20) 10*6/uL Hgb (12.0-15.0) g/dL Hct (37.2-46.3) % Immature Gran # (0.00-0.04) 10*3/uL Neutrophils # (1.80-7.70) 10*3/uL Lymphocytes # (0.90-5.00) 10*3/uL Eosinophils # (0.04-0.35) 10*3/uL Carbon Dioxide (22-30) mmol/L BUN (7-17) mg/dL Creatinine (0.52-1.04) mg/dL Glucose (74-99) mg/dL POC Glucose (mg/dL) 353 H 316 H 297 H (70-110) mg/dL Hemoglobin A1c (<=6.0) % Calcium (8.4-10.2) mg/dL 10/11/24 10/12/24 10/12/24 Range/Units 23:48 01:14 02:54 WBC (4.50-10.00) 10*3/uL RBC (4.10-5.20) 10*6/uL Hgb (12.0-15.0) g/dL Hct (37.2-46.3) % Immature Gran # (0.00-0.04) 10*3/uL Neutrophils # (1.80-7.70) 10*3/uL Lymphocytes # (0.90-5.00) 10*3/uL Eosinophils # (0.04-0.35) 10*3/uL Carbon Dioxide (22-30) mmol/L BUN (7-17) mg/dL Creatinine (0.52-1.04) mg/dL Glucose (74-99) mg/dL POC Glucose (mg/dL) 188 H 165 H 114 H (70-110) mg/dL Hemoglobin A1c (<=6.0) % Calcium (8.4-10.2) mg/dL 10/12/24 10/12/2410/12/25 Range/Units 04:01 05:00 05:00 WBC 11.06 H (4.50-10.00) 10*3/uL RBC 3.04 L (4.10-5.20) 10*6/uL Hgb 9.2 L (12.0-15.0) g/dL Hct 28.1 L (37.2-46.3) % Immature Gran # 0.09 H (0.00-0.04) 10*3/uL Neutrophils # 9.70 H (1.80-7.70) 10*3/uL Lymphocytes # 0.48 L (0.90-5.00) 10*3/uL Eosinophils # 0.00 L (0.04-0.35) 10*3/uL Carbon Dioxide (22-30) mmol/L BUN (7-17) mg/dL Creatinine (0.52-1.04) mg/dL Glucose (74-99) mg/dL POC Glucose (mg/dL) 134 H (70-110) mg/dL Hemoglobin A1c 7.5 H (<=6.0) % Calcium (8.4-10.2) mg/dL 10/12/24 10/12/24 10/12/24 Range/Units 05:00 05:03 06:03 WBC (4.50-10.00) 10*3/uL RBC (4.10-5.20) 10*6/uL Hgb (12.0-15.0) g/dL Hct (37.2-46.3) % Immature Gran # (0.00-0.04) 10*3/uL Neutrophils # (1.80-7.70) 10*3/uL Lymphocytes # (0.90-5.00) 10*3/uL Eosinophils # (0.04-0.35) 10*3/uL Carbon Dioxide (22-30) mmol/L BUN 37 H (7-17) mg/dL Creatinine 1.86 H (0.52-1.04) mg/dL Glucose 176 H (74-99) mg/dL POC Glucose (mg/dL) 211 H 167 H (70-110) mg/dL Hemoglobin A1c (<=6.0) % Calcium 7.2 L (8.4-10.2) mg/dL 10/12/24 10/12/24 10/12/24 Range/Units 06:51 08:18 09:05 WBC (4.50-10.00) 10*3/uL RBC (4.10-5.20) 10*6/uL Hgb (12.0-15.0) g/dL Hct (37.2-46.3) % Immature Gran # (0.00-0.04) 10*3/uL Neutrophils # (1.80-7.70) 10*3/uL Lymphocytes # (0.90-5.00) 10*3/uL Eosinophils # (0.04-0.35) 10*3/uL Carbon Dioxide (22-30) mmol/L BUN (7-17) mg/dL Creatinine (0.52-1.04) mg/dL Glucose (74-99) mg/dL POC Glucose (mg/dL) 145 H 194 H 179 H (70-110) mg/dL Hemoglobin A1c (<=6.0) % Calcium (8.4-10.2) mg/dL Assessment and Plan Assessment: UTI and secondary sepsis with gram-negative bacillus. Blood cultures are being monitored. Cultures possible gram-negative bacillus and the patient is currently on IV Invanz. Septic shock, recovered and the patient is currently off pressors Acute kidney injury, improving Severe hyperkalemia, treated Anion gap metabolic acidosis, improved Sinus tachycardia, improved History of paroxysmal atrial fibrillation, currently sinus mechanism, chronically anticoagulated on Eliquis History of hypertension History of hyperlipidemia History of nonobstructive coronary artery disease Elevated troponins, likely secondary to poor renal clearance History of frequent urinary tract infections History of adrenal insufficiency, maintained on Solu-Cortef Obstructive sleep apnea, with home CPAP at APAP 5/13 cm H2O Chronic obstructive pulmonary disease, stable and inactive Plan: Patient currently on 3 liters oxygen by nasal cannula Discontinue the bicarb infusion and put the patient normal citrate of 50 cc an hour Hold lisinopril, Aldactone, and potassium supplements; as well as, other antihypertensive medications at the moment. Restart Norvasc for blood pressure control Blood sugar management with insulin drip Monitor renal function Continue IV Invanz Stress dose hydrocortisone Eliquis has been resumed Restart BuSpar and Wellbutrin Restart aspirin Utilize CPAP for use at bedtime Clinically improved and the patient will be continued to be monitored. Time with Patient: Greater than 30
[2024-10-12] MEDS: NITROGLYCERIN SL TABS 0.4 MG TAB SUBLINGUAL PRN (13:36)
[2024-10-12 14:30] LABS: Glucose,Whole Blood 228 mg/dL (70-110)
[2024-10-12] MEDS: NITROGLYCERIN-D5W PMX 50 MG in DEXTROSE/WATER 1 250ML.BAG IV SCH (14:34)
--- NOTE | 2024-10-12 15:00 | P.CRDCN ---
History of Present Illness Consult date: 10/12/24 History of present illness: HISTORY OF PRESENTING ILLNESS: Patient is a 74-year-old female with past medical history of CAD hypertension dyslipidemia type 2 diabetes obstructive sleep apnea, atrial insufficiency, thoracic aortic aneurysm, paroxysmal atrial fibrillation known to Dr. Sharma. She was last hospitalized in July 2024 with urinary tract infection found to have Klebsiella pneumonia. This time she presented to the hospital because of concerns of UTI. On admission she had evidence of septic shock with gram- negative bacteremia along with evidence of MARIO with creatinine of 4.3 along with elevated troponin of 1.5 without oriented pattern. She also had anion gap metabolic acidosis with bicarb of 6. Currently she is being managed in ICU for shock state. She was previously managed on IV pressors. With fluid resuscitation and antibiotics her hemodynamics has improved and she has been weaned off pressors. Currently she is borderline hypertensive. This morning she was complaining of some substernal chest heaviness for which cardiology was consulted. EKG shows sinus rhythm with ST depressions in lateral leads with elevations in V1 and aVR. Prior cardiac testing: Cardiac catheterization 2018 showed intermediate disease involving proximal LAD with 60% disease and aneurysm formation Echo from August 2022 shows an EF of 60%, moderate MR, mild AR REVIEW OF SYSTEMS: 14 point review of system is negative except what is mentioned above in HPI. PHYSICAL EXAMINATION: Morbidly obese Neck: no jugular venous distention. Lungs: Clear to auscultation. Heart: Regular rate and rhythm, mild systolic murmur audible. Abdomen: Soft nontender, positive bowel sounds. Extremities: No edema, intact distal pulses. Neuro: Alert, oritented, no focal deficits. Detailed neuro exam was not performed. ASSESSMENT: # Gram-negative septicemia with UTI # Septic shock # Anion gap metabolic acidosis # MARIO # Elevated troponin in setting of MARIO and hypoxic respiratory failure, multifactorial, likely type II NSTEMI # Prior history of CAD with intermediate 60% disease in proximal LAD from 2019 # History of paroxysmal atrial fibrillation # History of renal insufficiency # Obstructive sleep apnea # Obesity PLAN: Start IV heparin drip Start IV nitroglycerin drip Start metoprolol 50 twice daily Continue aspirin 81, amlodipine 10, Monitor hemoglobin levels, kidney function and urine output. Once kidney function improves, plan for cardiac catheterization Obtain echocardiogram Prognosis guarded Chris Massey MD, FACC, RPVI Thank you for allowing [facility] to participate in this patient's care. Feel free to reach out in case of any followup questions. Past Medical History Past Medical History: Atrial Fibrillation, Diabetes Mellitus, Deep Vein Thrombosis (DVT), Fibromyalgia, Hyperlipidemia, Hypertension, Osteoarthritis (OA), Pneumonia, Renal Disease, Sleep Apnea/CPAP/BIPAP, Vascular Disorder Additional Past Medical History / Comment(s): Pt recently admitted to [facility] with R flank pain and UTI 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, DVT R calf in 1976, cardiac murmur, occipital neuraligia, balance issues-has narrowing of vessels "in the back of my head", vertigo, varicosities, states rt shoulder torn rotator cuff History of Any Multi-Drug Resistant Organisms: ESBL, MRSA, VRE Date of last positivie culture/infection: 11/25/20 ESBL;12/06/19 VRE; 03/10/11 MRSA MDRO Source:: Urine ESBL; Urine-VRE: MRSA 4th Right TOE Past Surgical History: Appendectomy, Back Surgery, Bladder Surgery, Breast Surgery, Cholecystectomy, Heart Catheterization, Hysterectomy, Orthopedic Surgery, Tonsillectomy Additional Past Surgical History / Comment(s): Lumbar fusions, bladder suspension, occipital nerve blocks, 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, R wrist/elbow nerve repair, bone removed R shoulder, 4th toe R foot partial amputation, bilateral feet/bunionectomies, R knee arthroscopies, R orbit decompression with ethmoidectomy and eyelid lift, EGD, colonoscopies, cystocopies, lithotripsy/stents, bilateral breast reduction, bilateral cataract removals, parathyroid surgery - April 2019, pain clinic procedures Past Anesthesia/Blood Transfusion Reactions: No Reported Reaction Additional Past Anesthesia/Blood Transfusion Reaction / Comment(s): never recieved blood Past Psychological History: Depression Additional Psychological History / Comment(s): Pt resides with her spouse. She uses a walker. She normally drives. She has a nebulizer, cpap, bsc, shower chair, bp machine, dexcom monitor system for her BG and insulin pump. Smoking Status: Never smoker Past Alcohol Use History: None Reported Additional Past Alcohol Use History / Comment(s): no alcohol Past Drug Use History: None Reported - Past Family History Father Family Medical History: Coronary Artery Disease (CAD), CVA/TIA, Diabetes Mellitus, Myocardial Infarction (DE), Pneumonia Additional Family Medical History / Comment(s): Father at the age of 78yrs from DE and pneumonia. Mother Family Medical History: Cancer, Congestive Heart Failure (CHF) Additional Family Medical History / Comment(s): Mother had uterine cancer. She recently at the age of 96yrs old from shingles. Medications and Allergies Home Medications Medication Instructions Recorded Confirmed Type Meclizine [Antivert] 25 mg PO BID PRN 11/26/17 10/11/24 History L.acidoph,Paracasei, B.lactis 2 cap PO BID 10/08/18 10/11/24 History [Probiotic] Melatonin 5 mg PO HS PRN 10/08/18 10/11/24 History Thiamine [Vitamin B-1] 100 mg PO HS 10/08/18 10/11/24 History Vitamin B-Complex Drops 1 drop PO BID 10/08/18 10/11/24 History C,E,Zinc,Copper 11/Uyreu9m/Lut 1 cap PO DAILY 06/25/20 10/11/24 History [Ocuvite Adult 50 Plus Softgel] Brimonidine Tartrate [Alphagan P 1 drop RIGHT EYE BID 11/26/20 10/11/24 History 0.2% Ophth Soln] Pantoprazole Sodium [Protonix] 40 mg PO BID 11/26/20 10/11/24 History Insulin Aspart (For Pump) [NovoLOG 0.01 unit SQ-PUMP CONTINUOUS 03/03/21 10/11/24 History (For Pump)] Cranberry Fruit Extract [Cranberry] 500 mg PO BID 05/25/22 10/11/24 History Multivit-Min/Folic Acid/Ckv607 1 tab PO DAILY 05/25/22 10/11/24 History [Alive Premium Adult Multivit] Butalb/APAP/Caff 50-325-40Mg 1 tab PO Q6H PRN #12 tab 09/06/22 10/11/24 Rx [Fioricet 50-325-40] Dhea 50mg With B-12 2500mcg 1 tab PO HS 04/27/23 10/11/24 History Folic Acid 800mcg With Folate 1 tab PO HS 04/27/23 10/11/24 History 1333mg Magnesium Oxide [Mag-Ox] 400 mg PO BID 09/20/23 10/11/24 History buPROPion XL [Wellbutrin XL] 300 mg PO DAILY 09/20/23 10/11/24 History Iron 27mg 27 mg PO DAILY 09/23/23 10/11/24 History Turmeric Complex 550mg 550 mg PO HS 09/23/23 10/11/24 History Apixaban [Eliquis] 5 mg PO BID tab 09/28/23 10/11/24 Rx HYDROcodone/APAP 10-325MG [[place] 1 tab PO Q6H PRN #12 tab 09/28/23 10/11/24 Rx 10-325] ARIPiprazole [Abilify] 10 mg PO HS 03/10/24 10/11/24 History Metoprolol Succinate [Toprol XL] 100 mg PO HS 03/10/24 10/11/24 History Potassium Gluconate 99 mg PO DAILY 03/10/24 10/11/24 History Rosuvastatin Calcium [Crestor] 5 mg PO HS 03/10/24 10/11/24 History Scopolamine [Scopolamine 1 MG/72 1 patch TRANSDERM Q72H PRN 03/10/24 10/11/24 History HR patch] Spironolactone [Aldactone] 50 mg PO DAILY 03/10/24 10/11/24 History Aspirin [Adult Low Dose Aspirin EC] 81 mg PO DAILY 05/06/24 10/11/24 History Promethazine [Phenergan] 25 mg PO BID PRN 05/06/24 10/11/24 History hydroCHLOROthiazide 25 mg PO DAILY 05/06/24 10/11/24 History Cyanocobalamin (Vitamin B-12) 2,500 mcg PO DAILY 07/19/24 10/11/24 History [Vitamin B-12] Dorzolamide 2% [Trusopt 2%] 1 drops RIGHT EYE BID 07/19/24 10/11/24 History lisinopriL [Zestril] 30 mg PO DAILY@1200 07/19/24 10/11/24 History Nystatin 100,000 Unit/gm Powd 1 applic TOPICAL BID 7 Days #1 each 07/26/24 10/11/24 Rx [Mycostatin Powder] Ondansetron [Zofran] 4 mg PO TID PRN #20 tab 07/26/24 10/11/24 Rx amLODIPine [Norvasc] 10 mg PO DAILY #30 tab 07/26/24 10/11/24 Rx busPIRone HCl [Buspar] 10 mg PO BID #0 07/26/24 10/11/24 Rx Albuterol Nebulized [Ventolin 2.5 mg INHALATION RT-QID PRN 10/11/24 10/11/24 History Nebulized] Hydrocortisone [Cortef] 10 mg PO HS 10/11/24 10/11/24 History Hydrocortisone [Cortef] 20 mg PO DAILY 10/11/24 10/11/24 History Allergies Allergy/AdvReac Type Severity Reaction Status Date / Time butorphanol tartrate Allergy BLISTERS Verified 10/11/24 08:30 [From Stadol] IN MOUTH ceftriaxone [From Rocephin] Allergy Rash/Hives Verified 10/11/24 08:30 clarithromycin [From Biaxin] Allergy Rash/Hives Verified 10/11/24 08:30 clindamycin Allergy Rash/Hives Verified 10/11/24 08:30 codeine Allergy Rash/Hives Verified 10/11/24 08:30 ergotamine tartrate Allergy Rash/Hives Verified 10/11/24 08:30 [From Cafergot] erythromycin base Allergy RASH, GI Verified 10/11/24 08:30 [From E-Mycin] SYMPTOMS ketorolac tromethamine Allergy Rash/Hives Verified 10/11/24 08:30 [From Toradol] liraglutide [From Victoza] Allergy Rash/Hives Verified 10/11/24 08:30 morphine Allergy Rash/Hives Verified 10/11/24 08:30 Penicillins Allergy Rash/Hives Verified 10/11/24 08:30 on upper body pentazocine lactate Allergy SEVERE Verified 10/11/24 08:30 [From Talwin] BLISTERS IN MOUTH pregabalin [From Lyrica] Allergy Rash/Hives Verified 10/11/24 08:30 propoxyphene HCl Allergy Rash/Hives Verified 10/11/24 08:30 [From Darvon] Sulfa (Sulfonamide Allergy Rash/Hives Verified 10/11/24 08:30 Antibiotics) sulfamethoxazole Allergy Rash/Hives Verified 10/11/24 08:30 [From Bactrim] tizanidine Allergy Unknown Verified 10/11/24 08:30 tramadol Allergy Unknown Verified 10/11/24 08:30 trimethoprim [From Bactrim] Allergy Rash/Hives Verified 10/11/24 08:30 vancomycin Allergy lip Verified 10/11/24 08:30 swelling metoclopramide [From Reglan] AdvReac Hallucinati Verified 10/11/24 08:30 ons monosodium glutamate [MSG] AdvReac Nausea & Verified 10/11/24 08:30 Vomiting nalbuphine HCl [From Nubain] AdvReac Nausea & Verified 10/11/24 08:30 Vomiting Physical Exam Vitals: Vital Signs Temp Pulse Resp BP Pulse Ox 10/12/24 14:00 103 H 14 97 10/12/24 13:00 89 13 98 10/12/24 12:00 98.1 F 85 15 94 L 10/12/24 11:00 94 20 96 10/12/24 10:00 114 H 14 93 L 10/12/24 09:45 114 H 12 94 L 10/12/24 09:30 114 H 14 94 L 10/12/24 09:15 105 H 12 96 10/12/24 09:00 97 16 96 10/12/24 08:45 95 16 96 10/12/24 08:30 96 19 96 10/12/24 08:15 94 12 96 10/12/24 08:00 98.3 F 98 19 94 L 10/12/24 07:45 92 12 97 10/12/24 07:30 94 13 98 10/12/24 07:15 97 20 98 10/12/24 07:00 105 H 22 98 10/12/24 06:45 106 H 10 L 96 10/12/24 06:30 110 H 10 L 95 10/12/24 06:15 111 H 10 L 95 10/12/24 06:00 113 H 10 L 95 10/12/24 05:45 113 H 10 L 95 10/12/24 05:30 107 H 10 L 95 10/12/24 05:15 111 H 11 L 96 10/12/24 05:00 107 H 12 98 10/12/24 04:45 107 H 26 H 99 10/12/24 04:30 101 H 11 L 99 10/12/24 04:15 99 20 99 10/12/24 04:00 98.1 F 87 14 98 10/12/24 03:45 86 10 L 98 10/12/24 03:30 88 12 98 10/12/24 03:15 86 10 L 98 10/12/24 03:00 88 11 L 96/38 98 10/12/24 02:45 89 11 L 98 10/12/24 02:30 89 11 L 98 10/12/24 02:15 90 11 L 98 10/12/24 02:00 93 11 L 98 10/12/24 01:45 102 H 10 L 98 10/12/24 01:30 105 H 10 L 98 10/12/24 01:15 109 H 11 L 98 10/12/24 01:00 112 H 10 L 98 10/12/24 00:45 112 H 10 L 97 10/12/24 00:30 121 H 10 L 97 10/12/24 00:15 124 H 10 L 97 10/12/24 00:07 125 H 11 L 97 10/12/24 00:00 98.4 F 125 H 11 L 96/38 97 10/11/24 23:30 108 H 20 96/38 97 10/11/24 23:00 111 H 28 H 97 10/11/24 22:30 115 H 30 H 97 10/11/24 22:00 115 H 26 H 96/38 97 10/11/24 21:30 116 H 27 H 98 10/11/24 21:00 110 H 13 96/38 98 10/11/24 20:30 110 H 17 96/38 98 10/11/24 20:00 110 H 24 96/38 97 10/11/24 19:30 111 H 21 96/38 98 10/11/24 19:00 97 13 99 10/11/24 18:45 99 16 99 10/11/24 18:30 102 H 16 99 10/11/24 18:15 99 13 99 10/11/24 18:00 99 14 96/38 99 10/11/24 17:45 103 H 10 L 96/38 98 10/11/24 17:30 105 H 18 98 10/11/24 17:15 105 H 13 97 10/11/24 17:00 107 H 9 L 98 10/11/24 16:45 105 H 12 98 10/11/24 16:30 110 H 10 L 97 10/11/24 16:15 112 H 13 97 10/11/24 16:00 98.9 F 114 H 16 98 10/11/24 15:45 118 H 13 98 10/11/24 15:30 123 H 16 98 10/11/24 15:15 123 H 13 97 10/11/24 15:00 111 H 17 98 Intake and Output 10/11/24 10/12/24 10/12/24 22:59 06:59 14:59 Intake Total 8342.786 5571.316 475.836 Output Total 950 385 95 Balance 728.724 7422.316 380.836 Intake: IV 1100 1350 450 0.9 KVO 60 180 60 Dextrose 5% in Water 1, 1040 1170 390 000 ml @ 130 mls/hr IV . Q8H51M KIARA with Sodium Bicarb (1 Meq/ml) 150 ml Rx#:[id number] Intake, IV Titration 186.999 74.316 25.836 Amount Insulin Regular 100 unit 36.365 70.221 25.836 In Sodium Chloride 0.9% 100 ml @ Titrate IV .Q0M [facility] Rx#:[id number] Norepinephrine 8 mg In 148.772 4.095 Sodium Chloride 0.9% 250 ml @ 0.03 MCG/KG/MIN 4. 551 mls/hr IV .Q24H [facility] Rx#:[id number] Vasopressin 60 unit In 1.862 Sodium Chloride 0.9% 150 ml @ 0.03 UNITS/MIN 4.59 mls/hr IV .Q24H [facility] Rx#: [id number] Oral 50 50 Output: Urine 950 385 95 Other: Voiding Method Indwelling Catheter Indwelling Catheter Indwelling Catheter Weight 82.5 kg ABP, PAP, CO, CI - Last 8 Hours Arterial Blood Pressure 135/53 Arterial Blood Pressure 124/55 Arterial Blood Pressure 123/53 Arterial Blood Pressure 137/59 Arterial Blood Pressure 136/63 Arterial Blood Pressure 138/57 Arterial Blood Pressure 150/61 Arterial Blood Pressure 125/56 Arterial Blood Pressure 143/63 Arterial Blood Pressure 123/56 Arterial Blood Pressure 118/55 Arterial Blood Pressure 124/56 Arterial Blood Pressure 117/57 Arterial Blood Pressure 127/61 Arterial Blood Pressure 126/55 Arterial Blood Pressure 134/57 Arterial Blood Pressure 143/62 Results 10/12/24 05:00 10/12/24 05:00 CBC 10/12/24 Range/Units 05:00 WBC 11.06 H (4.50-10.00) 10*3/uL RBC 3.04 L (4.10-5.20) 10*6/uL Hgb 9.2 L (12.0-15.0) g/dL Hct 28.1 L (37.2-46.3) % Plt Count 200 (140-440) 10*3/uL Comprehensive Metabolic Panel 10/11/24 10/11/24 10/12/24 Range/Units 15:35 17:30 05:00 Sodium 138 140 (137-145) mmol/L Potassium 4.5 4.8 4.0 (3.5-5.1) mmol/L Chloride 106 101 (98-107) mmol/L Carbon Dioxide 16 L 30 (22-30) mmol/L BUN 37 H 37 H (7-17) mg/dL Creatinine 2.52 H 1.86 H (0.52-1.04) mg/dL Glucose 452 H 176 H (74-99) mg/dL Calcium 6.9 L 7.2 L (8.4-10.2) mg/dL Current Medications Generic Name Dose Route Start Last Admin Trade Name Freq PRN Reason Stop Dose Admin Acetaminophen 500 mg 10/11/24 08:33 10/11/24 08:58 Acetaminophen Tab 500 Mg Tab PO 500 mg Q6HR PRN Administration Fever and/ or Pain 1-3 Hydrocodone Bitart/Acetaminophen 1 each 10/12/24 10:00 10/12/24 12:01 Hydrocodone/Apap 10-325mg 1 Each Tab PO 1 each Q6H PRN Administration Pain Amlodipine Besylate 10 mg 10/12/24 10:30 10/12/24 10:43 Amlodipine 10 Mg Tab PO 10 mg DAILY KIARA Administration Aripiprazole 10 mg 10/12/24 21:00 Aripiprazole 10 Mg Tab PO HS [facility] Aspirin 81 mg 10/13/24 09:00 Aspirin 81 Mg PO DAILY [facility] Bupropion HCl 300 mg 10/12/24 10:30 10/12/24 10:43 Bupropion Xl 300 Mg Tab.Er.24h PO 300 mg DAILY KIARA Administration Buspirone HCl 10 mg 10/12/24 10:30 10/12/24 10:43 Buspirone Hcl 10 Mg Tab PO 10 mg BID KIARA Administration Dextrose/Water 25 ml 10/11/24 17:15 Dextrose 50% Syringe 50 Ml IVP PER PROTOCOL PRN Hypoglycemia Protocol Dextrose/Water 50 ml 10/11/24 17:15 Dextrose 50% Syringe 50 Ml IVP PER PROTOCOL PRN Hypoglycemia Protocol Diphenhydramine HCl 25 mg 10/11/24 09:55 10/12/24 08:58 Diphenhydramine 50 Mg/Ml 1 Ml Vial IVP 25 mg Q6HR PRN Administration Allergy Symptoms Heparin Sodium (Porcine) 0 unit 10/12/24 14:14 Heparin Sodium 1,000 Un/Ml (10ml Vl) IV PER PROTOCOL PRN Low PTT Protocol Hydrocortisone Sodium Succinate 100 mg 10/11/24 10:15 10/12/24 08:58 Hydrocortisone Succinate 100 Mg/2 Ml Vial IV 100 mg Q8HR [facility]ARA Administration Ertapenem 0.5 gm/ Sodium 50 mls @ 100 mls/hr 10/11/24 09:00 10/12/24 10:23 Chloride IVPB 100 mls/hr DAILY K[facility]ARA Administration Protocol Insulin Human Regular 100 unit 100 mls @ 0 mls/hr 10/11/24 17:30 10/12/24 14:29 / Sodium Chloride IV 2.2 units/hr .Q0M [facility] 2.2 mls/hr Titration Protocol Titrate Sodium Chloride 1,000 mls @ 50 mls/hr 10/12/24 10:00 10/12/24 10:25 Saline 0.9% IV 50 mls/hr .Q20H [facility] Administration Nitroglycerin/Dextrose 50 mg/ 250 mls @ 1.5 mls/hr 10/12/24 14:15 10/12/24 14:34 IV Solution IV 5 mcg/min .Q24H [facility] 1.5 mls/hr Administration Protocol 5 MCG/MIN Heparin Sodium/Sodium Chloride 250 mls @ 9.9 mls/hr 10/12/24 14:15 25,000 unit/ Sodium Chloride IV .Q24H [facility] Protocol 12 UNITS/KG/HR Melatonin 3 mg 10/11/24 23:14 10/11/24 23:26 Melatonin 3 Mg Tablet PO 3 mg HS PRN Administration Insomnia Metoprolol Tartrate 50 mg 10/12/24 21:00 Metoprolol Tartrate 50 Mg Tab PO BID [facility] Naloxone HCl 0.2 mg 10/10/24 22:11 Naloxone 0.4 Mg/Ml 1 Ml Vial IV Q2M PRN Opioid Reversal Nitroglycerin 0.4 mg 10/12/24 13:26 10/12/24 13:50 Nitroglycerin Sl Tabs 0.4 Mg Tab SUBLINGUAL 0.4 mg Q5M PRN Administration Chest Pain Ondansetron HCl 4 mg 10/10/24 23:49 10/12/24 08:58 Ondansetron 4 Mg/2 Ml Vial IVP 4 mg Q6HR PRN Administration Nausea And Vomiting Pantoprazole Sodium 40 mg 10/11/24 07:30 10/12/24 09:12 Pantoprazole 40 Mg Tablet PO Not Given AC-BRKFST [facility] Intake and Output 10/11/24 10/12/24 10/12/24 22:59 06:59 14:59 Intake Total 7754.957 1683.316 475.836 Output Total 950 385 95 Balance 999.632 1176.316 380.836 Intake: IV 1100 1350 450 0.9 KVO 60 180 60 Dextrose 5% in Water 1, 1040 1170 390 000 ml @ 130 mls/hr IV . Q8H51M [facility] with Sodium Bicarb (1 Meq/ml) 150 ml Rx#:[id number] Intake, IV Titration 186.999 74.316 25.836 Amount Insulin Regular 100 unit 36.365 70.221 25.836 In Sodium Chloride 0.9% 100 ml @ Titrate IV .Q0M [facility] Rx#:[id number] Norepinephrine 8 mg In 148.772 4.095 Sodium Chloride 0.9% 250 ml @ 0.03 MCG/KG/MIN 4. 551 mls/hr IV .Q24H [facility] Rx#:[id number] Vasopressin 60 unit In 1.862 Sodium Chloride 0.9% 150 ml @ 0.03 UNITS/MIN 4.59 mls/hr IV .Q24H [facility] Rx#: [id number] Oral 50 50 Output: Urine 950 385 95 Other: Voiding Method Indwelling Catheter Indwelling Catheter Indwelling Catheter Weight 82.5 kg 10/12/24 05:00 10/12/24 05:00
[2024-10-12 16:01] LABS: INR 1.2 (<1.2); Partial Thromboplastin Time 24.6 sec (22.0-30.0); Prothrombin Time 12.7 sec (10.0-12.5)
[2024-10-12] MEDS: LORazepam 0.5 MG TAB PO PRN (16:19)
[2024-10-12] MEDS: HEPARIN SOD,PORK IN 0.45% NACL 25,000 UNIT in 0.45% NACL 1 250ML.BAG IV SCH (16:29)
[2024-10-12] MEDS: HEPARIN SODIUM 1,000 UN/ML (10ML VL) IV ONE (16:29)
[2024-10-12 16:44] LABS: Glucose,Whole Blood 192 mg/dL (70-110)
[2024-10-12 18:10] LABS: Glucose,Whole Blood 170 mg/dL (70-110)
[2024-10-12] MEDS: PANTOPRAZOLE 40 MG/10 ML VIAL IVP SCH (20:01)
[2024-10-12] MEDS: ARIPiprazole 10 MG TAB PO SCH (20:02)
[2024-10-12] MEDS: METOPROLOL TARTRATE 50 MG TAB PO SCH (20:02)
[2024-10-12 21:07] LABS: Glucose,Whole Blood 154 mg/dL (70-110)
[2024-10-12 22:03] LABS: HCT 27.1 % (37.2-46.3); HGB 8.9 g/dL (12.0-15.0); MCH 30.5 pg (27.0-32.0); MCHC 32.8 g/dL (32.0-37.0); MCV 92.8 fL (80.0-97.0); Mean Platelet Volume 10.6 fL (9.5-12.2); Platelet Count 209 10*3/uL (140-440); RBC 2.92 10*6/uL (4.10-5.20); RDW 15.3 % (11.5-14.5); WBC 11.29 10*3/uL (4.50-10.00)
[2024-10-12 23:11] LABS: Glucose,Whole Blood 156 mg/dL (70-110)
[2024-10-12 23:22] LABS: ABG Base Excess 8.1 mmol/L; ABG HCO3 33 mmol/L (21-25); ABG Oxygen Saturation 99.4 % (94-97); ABG PCO2 44 mmHg (35-45); ABG PH 7.48 (7.35-7.45); ABG PO2 114 mmHg (83-108); ABG TCO2 34 mmol/L (19-24)
[2024-10-12 23:24] LABS: Allen Test Performed? No
--- NOTE | 2024-10-12 23:47 | CT ---
EXAMINATION TYPE: CT brain wo con DATE OF EXAM: 10/12/2024 COMPARISON: CT brain January 27, 2020 CLINICAL INDICATION: Female, 74 years old with history of headache, double vision, headache, double v ision TECHNIQUE: CT scan of the head is performed without contrast. CT DLP: 1215.6 mGycm. Automated Exposure Control for Dose Reduction was Utilized. FINDINGS: There is no acute intracranial hemorrhage or midline shift identified. There is mild-to-m oderate diffuse ventricular and sulcal prominence redemonstrated. There is mild to moderate low-atte nuation in the periventricular white matter redemonstrated. Bilateral aphakia redemonstrated. Opacifi ed left maxillary sinus with central calcification/ossification and thickened sclerotic wall is redem onstrated. IMPRESSION: No acute intracranial hemorrhage or midline shift. There is lateral to moderate diffuse age-related cerebral atrophy and chronic small vessel ischemic change redemonstrated. Left maxillar y sinus disease redemonstrated. No significant change from most recent prior CT. [facility], , 10/12/2024 11:45 PM
[2024-10-13] MEDS: ACETAMINOPHEN TAB 325 MG TAB PO STA (02:53)
[2024-10-13 03:01] LABS: Glucose,Whole Blood 123 mg/dL (70-110)
[2024-10-13 03:51] LABS: HCT 28.3 % (37.2-46.3); HGB 9.1 g/dL (12.0-15.0); MCH 30.1 pg (27.0-32.0); MCHC 32.2 g/dL (32.0-37.0); MCV 93.7 fL (80.0-97.0); Mean Platelet Volume 10.8 fL (9.5-12.2); Platelet Count 215 10*3/uL (140-440); RBC 3.02 10*6/uL (4.10-5.20); RDW 15.2 % (11.5-14.5); WBC 10.68 10*3/uL (4.50-10.00)
[2024-10-13 04:38] LABS: Glucose,Whole Blood 206 mg/dL (70-110)
[2024-10-13 05:25] LABS: Glucose,Whole Blood 197 mg/dL (70-110)
[2024-10-13 06:14] LABS: African American GFR (CKD) 48 (>60 ml/min/1.73 sqM); Anion Gap 11 mmol/L; Blood Urea Nitrogen 35 mg/dL (7-17); Carbon Dioxide 28 mmol/L (22-30); Chloride 102 mmol/L (98-107); Glucose 186 mg/dL (74-99); Non-African American GFR(CKD) 42 (>60 ml/min/1.73 sqM); Potassium 3.8 mmol/L (3.5-5.1); Sodium 141 mmol/L (137-145)
[2024-10-13] MEDS ORDERED: Potassium Replacement Protocol 1 EACH MISC MISCELLANE PRN (06:26)
[2024-10-13 07:50] LABS: Glucose,Whole Blood 179 mg/dL (70-110)
[2024-10-13] MEDS: POTASSIUM BICARBONATE/CIT AC 20 MEQ TABLET.EFF NG-TUBE SCH (08:44)
[2024-10-13] MEDS: ASPIRIN 81 MG PO SCH (08:44)
[2024-10-13 09:07] LABS: Glucose,Whole Blood 179 mg/dL (70-110)
[2024-10-13 10:13] LABS: Glucose,Whole Blood 170 mg/dL (70-110)
--- NOTE | 2024-10-13 11:08 | P.PN ---
Subjective Patient is seen for follow-up for acute kidney injury. Renal function has improved with serum creatinine down to 1.2 mg/dL. Off of nitro drip Urine output about 30 cc an hour. Objective - Vital Signs Vital signs: Vital Signs Temp 97.8 F 10/13/24 08:00 Pulse 72 10/13/24 10:00 Resp 20 10/13/24 10:00 BP 141/77 10/13/24 10:00 Pulse Ox 97 10/13/24 10:00 FiO2 Intake & Output 10/12/24 10/13/24 10/13/24 18:59 06:59 18:59 Intake Total 905.836 942.892 310 Output Total 545 490 85 Balance 360.836 452.892 225 Intake: IV 880 840 210 0.9 KVO 120 240 60 Dextrose 5% in Water 1, 260 000 ml @ 130 mls/hr IV . Q8H51M [facility] with Sodium Bicarb (1 Meq/ml) 150 ml Rx#:[id number] Sodium Chloride 0.9% 1, 500 600 150 000 ml @ 50 mls/hr IV . Q20H [facility] Rx#:[id number] Intake, IV Titration 25.836 102.892 100 Amount Ertapenem 0.5 gm In 100 Sodium Chloride 0.9% 50 ml @ 100 mls/hr IVPB DAILY [facility] Rx#:[id number] Heparin Sod,Pork in 0.45% 64.845 NaCl 25,000 unit In 0.45 % NaCl 1 250ml.bag @ 12 UNITS/KG/HR 9.9 mls/hr IV .Q24H [facility] Rx#:[id number] Insulin Regular 100 unit 25.836 27.647 In Sodium Chloride 0.9% 100 ml @ Titrate IV .Q0M [facility] Rx#:[id number] Nitroglycerin-D5w Pmx 50 10.4 mg In Dextrose/Water 1 250ml.bag @ 5 MCG/MIN 1.5 mls/hr IV .Q24H [facility] Rx#: [id number] Output: Urine 545 490 85 Other: Voiding Method Indwelling Catheter Indwelling Catheter Indwelling Catheter ABP, PAP, CO, CI - Last Documented Arterial Blood Pressure 146/59 - Exam Patient is awake, comfortable, no acute distress. Examination of the heart S1 and S2 Examination of the lungs bilateral breath sounds are heard Abdomen is soft obese Examination of lower extremities shows trace edema [employer] exam shows patient is moving all 4 extremities. - Labs CBC & Chem 7: 10/13/24 03:04 10/13/24 05:18 Labs: Abnormal Lab Results - Last 24 Hours (Table) 10/12/24 10/12/24 10/12/24 Range/Units 14:27 14:56 15:35 WBC (4.50-10.00) 10*3/uL RBC (4.10-5.20) 10*6/uL Hgb (12.0-15.0) g/dL Hct (37.2-46.3) % PT 12.7 H (10.0-12.5) sec INR 1.2 H (<1.2) APTT (22.0-30.0) sec ABG pH (7.35-7.45) ABG pO2 (83-108) mmHg ABG HCO3 (21-25) mmol/L ABG Total CO2 (19-24) mmol/L ABG O2 Saturation (94-97) % Hemoglobin (11.4-16.0) gm/dL BUN (7-17) mg/dL Creatinine (0.52-1.04) mg/dL Glucose (74-99) mg/dL POC Glucose (mg/dL) 228 H (70-110) mg/dL Calcium (8.4-10.2) mg/dL Stool Occult Blood Positive H (Negative) 10/12/24 10/12/24 10/12/24 Range/Units 16:43 18:09 21:06 WBC (4.50-10.00) 10*3/uL RBC (4.10-5.20) 10*6/uL Hgb (12.0-15.0) g/dL Hct (37.2-46.3) % PT (10.0-12.5) sec INR (<1.2) APTT (22.0-30.0) sec ABG pH (7.35-7.45) ABG pO2 (83-108) mmHg ABG HCO3 (21-25) mmol/L ABG Total CO2 (19-24) mmol/L ABG O2 Saturation (94-97) % Hemoglobin (11.4-16.0) gm/dL BUN (7-17) mg/dL Creatinine (0.52-1.04) mg/dL Glucose (74-99) mg/dL POC Glucose (mg/dL) 192 H 170 H 154 H (70-110) mg/dL Calcium (8.4-10.2) mg/dL Stool Occult Blood (Negative) 10/12/24 10/12/24 10/12/24 Range/Units 21:54 21:54 23:05 WBC 11.29 H (4.50-10.00) 10*3/uL RBC 2.92 L (4.10-5.20) 10*6/uL Hgb 8.9 L (12.0-15.0) g/dL Hct 27.1 L (37.2-46.3) % PT (10.0-12.5) sec INR (<1.2) APTT 44.2 H (22.0-30.0) sec ABG pH 7.48 H (7.35-7.45) ABG pO2 114 H (83-108) mmHg ABG HCO3 33 H (21-25) mmol/L ABG Total CO2 34 H (19-24) mmol/L ABG O2 Saturation 99.4 H (94-97) % Hemoglobin 9.1 L (11.4-16.0) gm/dL BUN (7-17) mg/dL Creatinine (0.52-1.04) mg/dL Glucose (74-99) mg/dL POC Glucose (mg/dL) (70-110) mg/dL Calcium (8.4-10.2) mg/dL Stool Occult Blood (Negative) 10/12/24 10/13/24 10/13/24 Range/Units 23:08 03:00 03:04 WBC 10.68 H (4.50-10.00) 10*3/uL RBC 3.02 L (4.10-5.20) 10*6/uL Hgb 9.1 L (12.0-15.0) g/dL Hct 28.3 L (37.2-46.3) % PT (10.0-12.5) sec INR (<1.2) APTT (22.0-30.0) sec ABG pH (7.35-7.45) ABG pO2 (83-108) mmHg ABG HCO3 (21-25) mmol/L ABG Total CO2 (19-24) mmol/L ABG O2 Saturation (94-97) % Hemoglobin (11.4-16.0) gm/dL BUN (7-17) mg/dL Creatinine (0.52-1.04) mg/dL Glucose (74-99) mg/dL POC Glucose (mg/dL) 156 H 123 H (70-110) mg/dL Calcium (8.4-10.2) mg/dL Stool Occult Blood (Negative) 10/13/24 10/13/24 10/13/24 Range/Units 04:36 05:18 05:24 WBC (4.50-10.00) 10*3/uL RBC (4.10-5.20) 10*6/uL Hgb (12.0-15.0) g/dL Hct (37.2-46.3) % PT (10.0-12.5) sec INR (<1.2) APTT (22.0-30.0) sec ABG pH (7.35-7.45) ABG pO2 (83-108) mmHg ABG HCO3 (21-25) mmol/L ABG Total CO2 (19-24) mmol/L ABG O2 Saturation (94-97) % Hemoglobin (11.4-16.0) gm/dL BUN 35 H (7-17) mg/dL Creatinine 1.26 H (0.52-1.04) mg/dL Glucose 186 H (74-99) mg/dL POC Glucose (mg/dL) 206 H 197 H (70-110) mg/dL Calcium 7.0 L (8.4-10.2) mg/dL Stool Occult Blood (Negative) 10/13/24 10/13/24 10/13/24 Range/Units 07:48 09:06 10:12 WBC (4.50-10.00) 10*3/uL RBC (4.10-5.20) 10*6/uL Hgb (12.0-15.0) g/dL Hct (37.2-46.3) % PT (10.0-12.5) sec INR (<1.2) APTT (22.0-30.0) sec ABG pH (7.35-7.45) ABG pO2 (83-108) mmHg ABG HCO3 (21-25) mmol/L ABG Total CO2 (19-24) mmol/L ABG O2 Saturation (94-97) % Hemoglobin (11.4-16.0) gm/dL BUN (7-17) mg/dL Creatinine (0.52-1.04) mg/dL Glucose (74-99) mg/dL POC Glucose (mg/dL) 179 H 179 H 170 H (70-110) mg/dL Calcium (8.4-10.2) mg/dL Stool Occult Blood (Negative) Microbiology - Last 24 Hours (Table) 10/11/24 00:15 Blood Culture - Preliminary Blood 10/10/24 18:50 Urine Culture - Preliminary Urine,Clean Catch Gram Neg Bacilli Assessment and Plan Assessment: 1. Acute kidney injury secondary to ATN secondary to hypovolemia, shock. Creatinine 4.2 on admission and is 1.2 today. Baseline creatinine near 0.9. No hydronephrosis noted on imaging. 2. Metabolic acidosis secondary to acute kidney injury and GI losses. 3. Hyperkalemia secondary to acute kidney injury, acidosis, lisinopril/Aldactone. Better. 4. Septic shock secondary to UTI. 5. History of adrenal sufficiency maintained on Solu-Cortef. Plan: Continue normal saline at 50 cc an hour as patient has poor oral intake Repeat labs in a.m. Consider switching to home dose of hydrocortisone.
[2024-10-13] MEDS: INSULIN GLARGINE (LANTUS) 100 UNIT/ML SYR SQ SCH (11:17)
[2024-10-13 12:05] LABS: Glucose,Whole Blood 214 mg/dL (70-110)
[2024-10-13] MEDS: INSULIN LISPRO (HumaLOG) 100 UNIT/ML 10 mL VL SQ SCH (12:08)
[2024-10-13 14:11] LABS: HCT 27.9 % (37.2-46.3); HGB 8.7 g/dL (12.0-15.0); MCH 30.3 pg (27.0-32.0); MCHC 31.2 g/dL (32.0-37.0); MCV 97.2 fL (80.0-97.0); Mean Platelet Volume 11.6 fL (9.5-12.2); Platelet Count 185 10*3/uL (140-440); RBC 2.87 10*6/uL (4.10-5.20); WBC 10.04 10*3/uL (4.50-10.00)
[2024-10-13] MEDS: LIDOCAINE 4% PATCH TOPICAL SCH (16:00)
--- NOTE | 2024-10-13 16:18 | P.PN ---
Subjective Progress Note Date: 10/13/24 HISTORY OF PRESENTING ILLNESS: Patient is a 74-year-old female with past medical history of CAD hypertension dyslipidemia type 2 diabetes obstructive sleep apnea, atrial insufficiency, thoracic aortic aneurysm, paroxysmal atrial fibrillation known to Dr. Sharma. She was last hospitalized in July 2024 with urinary tract infection found to have Klebsiella pneumonia. This time she presented to the hospital because of concerns of UTI. On admission she had evidence of septic shock with gram-negative bacteremia along with evidence of MARIO with creatinine of 4.3 along with elevated troponin of 1.5 without oriented pattern. She also had anion gap metabolic acidosis with bicarb of 6. Currently she is being managed in ICU for shock state. She was previously managed on IV pressors. With fluid resu scitation and antibiotics her hemodynamics has improved and she has been weaned off pressors. Currently she is borderline hypertensive. This morning she was complaining of some substernal chest heaviness for which cardiology was consulted. EKG shows sinus rhythm with ST depressions in lateral leads with elevations in V1 and aVR. Prior cardiac testing: Cardiac catheterization 2018 showed intermediate disease involving proximal LAD with 60% disease and aneurysm formation Echo from August 2022 shows an EF of 60%, moderate MR, mild AR Progress note 10/13/2024 Yesterday while being on IV heparin drip and IV nitro drip she complained of some blurry vision and some headache. For this nitroglycerin and heparin drip was discontinued and we did a CT head which did not show any evidence of int racranial hemorrhage or any acute intracranial process. For this I resumed her heparin back but kept her IV nitroglycerin off because of headache. This morning basic neurological exam did not show any focal deficit. She is reporting blurry vision but it has improved since yesterday. I will discontinue IV fluids PHYSICAL EXAMINATION: Morbidly obese Neck: no jugular venous distention. Lungs: Clear to auscultation. Heart: Regular rate and rhythm, mild systolic murmur audible. Abdomen: Soft nontender, positive bowel sounds. Extremities: No edema, intact distal pulses. Neuro: Alert, oritented, no focal deficits. Detailed neuro exam was not performed. ASSESSMENT: # Gram-negative septicemia with UTI # Septic shock # Anion gap metabolic acidosis # MARIO, resolving # Elevated troponin in setting of MARIO and hypoxic respiratory failure, multifactorial, likely type II NSTEMI # Prior history of CAD with intermediate 60% disease in proximal LAD from 2019 # History of paroxysmal atrial fibrillation # History of renal insufficiency # Obstructive sleep apnea # Obesity PLAN: Recommend neurology consult for blurry vision evaluation. Seems like blurry vision is chronic and could be related to her glaucoma. Continue IV heparin Continue metoprolol 50 twice daily Continue aspirin 81, amlodipine 10, lipitor Monitor hemoglobin levels, kidney function and urine output. Plan for cardiac catheterization tomorrow a.m. with Dr. Sharma Obtain echocardiogram Prognosis guarded Objective - Vital Signs Vital signs: Vital Signs Temp 97.8 F 10/13/24 08:00 Pulse 69 10/13/24 11:00 Resp 20 10/13/24 11:00 BP 136/72 10/13/24 11:00 Pulse Ox 99 10/13/24 11:00 FiO2 Intake & Output 10/12/24 10/13/24 10/13/24 18:59 06:59 18:59 Intake Total 905.836 942.892 341.248 Output Total 545 490 120 Balance 360.836 452.892 221.248 Intake: IV 880 840 280 0.9 KVO 120 240 80 Dextrose 5% in Water 1, 260 000 ml @ 130 mls/hr IV . Q8H51M [facility] with Sodium Bicarb (1 Meq/ml) 150 ml Rx#:[id number] Sodium Chloride 0.9% 1, 500 600 200 000 ml @ 50 mls/hr IV . Q20H [facility] Rx#:[id number] Intake, IV Titration 25.836 102.892 61.248 Amount Ertapenem 0.5 gm In 50 Sodium Chloride 0.9% 50 ml @ 100 mls/hr IVPB DAILY [facility] Rx#:[id number] Heparin Sod,Pork in 0.45% 64.845 0 NaCl 25,000 unit In 0.45 % NaCl 1 250ml.bag @ 12 UNITS/KG/HR 9.9 mls/hr IV .Q24H [facility] Rx#:[id number] Insulin Regular 100 unit 25.836 27.647 11.248 In Sodium Chloride 0.9% 100 ml @ Titrate IV .Q0M [facility] Rx#:[id number] Nitroglycerin-D5w Pmx 50 10.4 mg In Dextrose/Water 1 250ml.bag @ 5 MCG/MIN 1.5 mls/hr IV .Q24H [facility] Rx#: [id number] Output: Urine 545 490 120 Other: Voiding Method Indwelling Catheter Indwelling Catheter Indwelling Catheter ABP, PAP, CO, CI - Last Documented Arterial Blood Pressure 146/59 - Labs CBC & Chem 7: 10/13/24 05:30 10/13/24 05:18 Labs: Abnormal Lab Results - Last 24 Hours (Table) 10/12/24 10/12/24 10/12/24 Range/Units 16:43 18:09 21:06 WBC (4.50-10.00) 10*3/uL RBC (4.10-5.20) 10*6/uL Hgb (12.0-15.0) g/dL Hct (37.2-46.3) % MCV (80.0-97.0) fL MCHC (32.0-37.0) g/dL APTT (22.0-30.0) sec ABG pH (7.35-7.45) ABG pO2 (83-108) mmHg ABG HCO3 (21-25) mmol/L ABG Total CO2 (19-24) mmol/L ABG O2 Saturation (94-97) % Hemoglobin (11.4-16.0) gm/dL BUN (7-17) mg/dL Creatinine (0.52-1.04) mg/dL Glucose (74-99) mg/dL POC Glucose (mg/dL) 192 H 170 H 154 H (70-110) mg/dL Calcium (8.4-10.2) mg/dL 10/12/24 10/12/24 10/12/24 Range/Units 21:54 21:54 23:05 WBC 11.29 H (4.50-10.00) 10*3/uL RBC 2.92 L (4.10-5.20) 10*6/uL Hgb 8.9 L (12.0-15.0) g/dL Hct 27.1 L (37.2-46.3) % MCV (80.0-97.0) fL MCHC (32.0-37.0) g/dL APTT 44.2 H (22.0-30.0) sec ABG pH 7.48 H (7.35-7.45) ABG pO2 114 H (83-108) mmHg ABG HCO3 33 H (21-25) mmol/L ABG Total CO2 34 H (19-24) mmol/L ABG O2 Saturation 99.4 H (94-97) % Hemoglobin 9.1 L (11.4-16.0) gm/dL BUN (7-17) mg/dL Creatinine (0.52-1.04) mg/dL Glucose (74-99) mg/dL POC Glucose (mg/dL) (70-110) mg/dL Calcium (8.4-10.2) mg/dL 10/12/24 10/13/24 10/13/24 Range/Units 23:08 03:00 03:04 WBC 10.68 H (4.50-10.00) 10*3/uL RBC 3.02 L (4.10-5.20) 10*6/uL Hgb 9.1 L (12.0-15.0) g/dL Hct 28.3 L (37.2-46.3) % MCV (80.0-97.0) fL MCHC (32.0-37.0) g/dL APTT (22.0-30.0) sec ABG pH (7.35-7.45) ABG pO2 (83-108) mmHg ABG HCO3 (21-25) mmol/L ABG Total CO2 (19-24) mmol/L ABG O2 Saturation (94-97) % Hemoglobin (11.4-16.0) gm/dL BUN (7-17) mg/dL Creatinine (0.52-1.04) mg/dL Glucose (74-99) mg/dL POC Glucose (mg/dL) 156 H 123 H (70-110) mg/dL Calcium (8.4-10.2) mg/dL 10/13/24 10/13/24 10/13/24 Range/Units 04:36 05:18 05:24 WBC (4.50-10.00) 10*3/uL RBC (4.10-5.20) 10*6/uL Hgb (12.0-15.0) g/dL Hct (37.2-46.3) % MCV (80.0-97.0) fL MCHC (32.0-37.0) g/dL APTT (22.0-30.0) sec ABG pH (7.35-7.45) ABG pO2 (83-108) mmHg ABG HCO3 (21-25) mmol/L ABG Total CO2 (19-24) mmol/L ABG O2 Saturation (94-97) % Hemoglobin (11.4-16.0) gm/dL BUN 35 H (7-17) mg/dL Creatinine 1.26 H (0.52-1.04) mg/dL Glucose 186 H (74-99) mg/dL POC Glucose (mg/dL) 206 H 197 H (70-110) mg/dL Calcium 7.0 L (8.4-10.2) mg/dL 10/13/24 10/13/24 10/13/24 Range/Units 05:30 07:48 09:06 WBC 10.04 H (4.50-10.00) 10*3/uL RBC 2.87 L (4.10-5.20) 10*6/uL Hgb 8.7 L (12.0-15.0) g/dL Hct 27.9 L (37.2-46.3) % MCV 97.2 H (80.0-97.0) fL MCHC 31.2 L (32.0-37.0) g/dL APTT (22.0-30.0) sec ABG pH (7.35-7.45) ABG pO2 (83-108) mmHg ABG HCO3 (21-25) mmol/L ABG Total CO2 (19-24) mmol/L ABG O2 Saturation (94-97) % Hemoglobin (11.4-16.0) gm/dL BUN (7-17) mg/dL Creatinine (0.52-1.04) mg/dL Glucose (74-99) mg/dL POC Glucose (mg/dL) 179 H 179 H (70-110) mg/dL Calcium (8.4-10.2) mg/dL 10/13/24 10/13/24 10/13/24 Range/Units 10:12 12:04 14:47 WBC (4.50-10.00) 10*3/uL RBC (4.10-5.20) 10*6/uL Hgb (12.0-15.0) g/dL Hct (37.2-46.3) % MCV (80.0-97.0) fL MCHC (32.0-37.0) g/dL APTT 37.7 H (22.0-30.0) sec ABG pH (7.35-7.45) ABG pO2 (83-108) mmHg ABG HCO3 (21-25) mmol/L ABG Total CO2 (19-24) mmol/L ABG O2 Saturation (94-97) % Hemoglobin (11.4-16.0) gm/dL BUN (7-17) mg/dL Creatinine (0.52-1.04) mg/dL Glucose (74-99) mg/dL POC Glucose (mg/dL) 170 H 214 H (70-110) mg/dL Calcium (8.4-10.2) mg/dL Microbiology - Last 24 Hours (Table) 10/10/24 18:50 Urine Culture - Final Urine,Clean Catch Klebsiella pneumoniae 10/11/24 00:15 Blood Culture - Preliminary Blood
[2024-10-13] MEDS: HEPARIN SODIUM 1,000 UN/ML (10ML VL) IV PRN (16:54)
[2024-10-13] MEDS: BUTALB/APAP/CAFF 50-325-40MG TAB PO STA (17:52)
[2024-10-13 17:57] LABS: Glucose,Whole Blood 238 mg/dL (70-110)
--- NOTE | 2024-10-13 18:37 | P.PN ---
Subjective Progress Note Date: 10/13/24 Patient is a 74-year-old female with past medical history significant for hypertension, hyperlipidemia, diabetes mellitus, atrial fibrillation anticoagulated on Eliquis, obstructive sleep apnea with home CPAP, COPD, adrenal insufficiency, and recurrent urinary tract infections. Of note, patient had a recent hospitalization July, for urinary tract infection. Urine culture was remarkable for Klebsiella pneumonia at that time. No further treatment with antibiotics following her hospitalization in July. Presents the emergency department history evening with concerns of UTI. She was also noted to be hypotensive and tachycardic. With elevated WBC count. Workup in the emergency department including CT of the abdomen and pelvis which did not show any suspicious bowel obstructions or ileus. Bilateral renal cysts were noted. No stones or hydronephrosis. Found to be in acute kidney injury/failure. Creatinine 4.23. Urinalysis remarkable for pyuria and bacteriuria. Urine culture was sent. Potassium was critically elevated at 6.5. This was treated in the ED with a combination of insulin 10 units regular, D50 W amp, 1 g calcium gluconate, concentrated albuterol treatment, as well as 5 g of Lokelma. EKG reviewed, sinus rhythm, rate 94 bpm, no QRS widening or peaked T waves. Nonspecific mild ST depressions. She does take lisinopril, Aldactone, as well as, potassium supplements at home. Remaining blood work remarkable for a CBC with a WBC count of 15.7, hemoglobin 12.7, platelets 299. CMP: Sodium 135, potassium 6.5, chloride 105, serum bicarb 10, anion gap 20, BUN 47, creatinine 4.23, glucose 151. Lactic 1.6. LFTs not elevated. Troponin 1.51, probably related to poor renal clearance. Patient is currently being evaluated in the intensive care unit. She is alert and oriented. States over the last week she has had burning with urination accompanied with urinary frequency and right flank pain. Denies any hematuria. No documented fevers but has been chilled. She has been eating and drinking without issue up until 24 to 48 hours prior to ER presentation where she developed some nausea and vomiting with with eating and drinking. Denies hematochezia, melanotic stools, hematemesis. Denies abdominal pain. Mucous membranes appear dry. Blood pressures improved with fluid resuscitation. She has been fluid resuscitated with a total of 2 L normal saline in the ED and continues on normal saline at 130 mL/h. Heart rate is tachycardic. Not requiring any vasopressors at the moment. Empirically covered with Levaquin in the ED. She has multiple medication/antibiotic allergies. Repeat labs are pending. On 10/12/2024, the patient is being seen for a follow-up. The patient is currently off pressors. Hemodynamically stable. Vasopressin has been disco ntinued. Norepinephrine has been discontinued. Patient remains on a bicarb infusion at rate of 100 cc an hour. Fluid balance is +5.3 L negative patient remains on 3 Suboxone by nasal cannula. The patient's urine culture is showing gram-negative bacillus and the blood culture still pending. The patient remains on IV Invanz. The patient is also on stress dose hydrocortisone. The bicarb infusion will be discontinued the patient will be switched to a normal saline rate of 50 cc an hour. No other significant events overnight. She is awake and alert. Aspirin, Wellbutrin and BuSpar to be resumed. Blood sugars under better control for now. Renal function continues to improve and today's blood work shows a creatinine of 1.8 with a BUN of 37. Sodium is at 140 with a potassium level of 4. Serum bicarb is at 30,. White cell count 11, hemoglobin 9.2 and platelet count of 200. On today's evaluation of 10/13/2024, the patient is awake and alert and the patient is communicating. No hypotension. No pressors. No altered mentation. No chest pain. No pleurisy. No hemoptysis. Urine output is adequate. The patient is afebrile. Hemodynamically stable. Meanwhile, the patient's urine culture is positive for Klebsiella pneumonia and the patient remains on IV Invanz and the choice of antibiotics was made based on her extensive allergies. The white cell count is currently down to 10.04 with a hemoglobin of 8.7 and a platelet count of 185. Sodium is 141, creatinine continues to improve and is down to 1.26 with a BUN of 35. Potassium is at 3.8. Bicarb level is at 28. The patient remains on an insulin drip and she is known to have diabetes mellitus maintained on insulin pump on an outpatient basis. I am going to transition this patient to long-acting insulin with Lantus. The patient is also on stress dose hydrocortisone. This was given to her due to her underlying c hronic adrenal sufficiency Objective - Vital Signs Vital signs: Vital Signs Temp 97.8 F 10/13/24 08:00 Pulse 77 10/13/24 09:00 Resp 24 10/13/24 09:00 BP 137/77 10/13/24 09:00 Pulse Ox 98 10/13/24 09:00 FiO2 Intake & Output 10/12/24 10/13/24 10/13/24 18:59 06:59 18:59 Intake Total 905.836 942.892 190 Output Total 545 490 55 Balance 360.836 452.892 135 Intake: IV 880 840 140 0.9 KVO 120 240 40 Dextrose 5% in Water 1, 260 000 ml @ 130 mls/hr IV . Q8H51M K[facility]ARA with Sodium Bicarb (1 Meq/ml) 150 ml Rx#:[id number] Sodium Chloride 0.9% 1, 500 600 100 000 ml @ 50 mls/hr IV . Q20H KIARA Rx#:[id number] Intake, IV Titration 25.836 102.892 50 Amount Ertapenem 0.5 gm In 50 Sodium Chloride 0.9% 50 ml @ 100 mls/hr IVPB DAILY KIARA Rx#:[id number] Heparin Sod,Pork in 0.45% 64.845 NaCl 25,000 unit In 0.45 % NaCl 1 250ml.bag @ 12 UNITS/KG/HR 9.9 mls/hr IV .Q24H K[facility]ARA Rx#:[id number] Insulin Regular 100 unit 25.836 27.647 In Sodium Chloride 0.9% 100 ml @ Titrate IV .Q0M K[facility]ARA Rx#:[id number] Nitroglycerin-D5w Pmx 50 10.4 mg In Dextrose/Water 1 250ml.bag @ 5 MCG/MIN 1.5 mls/hr IV .Q24H KIARA Rx#: [id number] Output: Urine 545 490 55 Other: Voiding Method Indwelling Catheter Indwelling Catheter Indwelling Catheter ABP, PAP, CO, CI - Last Documented Arterial Blood Pressure 146/59 - Exam GENERAL EXAM: Alert, 74-year-old female, rigors, fairly comfortable in no apparent distress. The patient is, comfortable on 3 L of O2 nasal cannula. The patient has a left subclavian triple-lumen catheter in place. HEAD: Normocephalic and atraumatic EYES: Normal reaction of pupils, equal size. NOSE: Clear with pink turbinates. THROAT: No erythema or exudates. Dry mucous membranes. NECK: No masses, no JVD. CHEST: No chest wall deformity. LUNGS: Equal air entry with no crackles, wheeze, rhonchi or dullness. On room air. No conversational dyspnea or accessory muscle use.. CVS: S1 and S2 normal with no audible murmur, regular rhythm. No extra heart sounds ABDOMEN: No hepatosplenomegaly, active bowel sounds, no guarding or rigidity. SPINE: No scoliosis or deformity. Right CVA tenderness. SKIN: Erythemic rash over the anterior chest CENTRAL NERVOUS SYSTEM: No focal deficits, tone is normal in all 4 extremities. EXTREMITIES: There is no peripheral edema, clubbing, or cyanosis. Peripheral pulses are intact. - Labs CBC & Chem 7: 10/13/24 05:30 10/13/24 05:18 Labs: Abnormal Lab Results - Last 24 Hours (Table) 10/12/24 10/12/24 10/12/24 Range/Units 10:18 14:27 14:56 WBC (4.50-10.00) 10*3/uL RBC (4.10-5.20) 10*6/uL Hgb (12.0-15.0) g/dL Hct (37.2-46.3) % PT (10.0-12.5) sec INR (<1.2) APTT (22.0-30.0) sec ABG pH (7.35-7.45) ABG pO2 (83-108) mmHg ABG HCO3 (21-25) mmol/L ABG Total CO2 (19-24) mmol/L ABG O2 Saturation (94-97) % Hemoglobin (11.4-16.0) gm/dL BUN (7-17) mg/dL Creatinine (0.52-1.04) mg/dL Glucose (74-99) mg/dL POC Glucose (mg/dL) 158 H 228 H (70-110) mg/dL Calcium (8.4-10.2) mg/dL Stool Occult Blood Positive H (Negative) 10/12/24 10/12/24 10/12/24 Range/Units 15:35 16:43 18:09 WBC (4.50-10.00) 10*3/uL RBC (4.10-5.20) 10*6/uL Hgb (12.0-15.0) g/dL Hct (37.2-46.3) % PT 12.7 H (10.0-12.5) sec INR 1.2 H (<1.2) APTT (22.0-30.0) sec ABG pH (7.35-7.45) ABG pO2 (83-108) mmHg ABG HCO3 (21-25) mmol/L ABG Total CO2 (19-24) mmol/L ABG O2 Saturation (94-97) % Hemoglobin (11.4-16.0) gm/dL BUN (7-17) mg/dL Creatinine (0.52-1.04) mg/dL Glucose (74-99) mg/dL POC Glucose (mg/dL) 192 H 170 H (70-110) mg/dL Calcium (8.4-10.2) mg/dL Stool Occult Blood (Negative) 10/12/24 10/12/24 10/12/24 Range/Units 21:06 21:54 21:54 WBC 11.29 H (4.50-10.00) 10*3/uL RBC 2.92 L (4.10-5.20) 10*6/uL Hgb 8.9 L (12.0-15.0) g/dL Hct 27.1 L (37.2-46.3) % PT (10.0-12.5) sec INR (<1.2) APTT 44.2 H (22.0-30.0) sec ABG pH (7.35-7.45) ABG pO2 (83-108) mmHg ABG HCO3 (21-25) mmol/L ABG Total CO2 (19-24) mmol/L ABG O2 Saturation (94-97) % Hemoglobin (11.4-16.0) gm/dL BUN (7-17) mg/dL Creatinine (0.52-1.04) mg/dL Glucose (74-99) mg/dL POC Glucose (mg/dL) 154 H (70-110) mg/dL Calcium (8.4-10.2) mg/dL Stool Occult Blood (Negative) 10/12/24 10/12/24 10/13/24 Range/Units 23:05 23:08 03:00 WBC (4.50-10.00) 10*3/uL RBC (4.10-5.20) 10*6/uL Hgb (12.0-15.0) g/dL Hct (37.2-46.3) % PT (10.0-12.5) sec INR (<1.2) APTT (22.0-30.0) sec ABG pH 7.48 H (7.35-7.45) ABG pO2 114 H (83-108) mmHg ABG HCO3 33 H (21-25) mmol/L ABG Total CO2 34 H (19-24) mmol/L ABG O2 Saturation 99.4 H (94-97) % Hemoglobin 9.1 L (11.4-16.0) gm/dL BUN (7-17) mg/dL Creatinine (0.52-1.04) mg/dL Glucose (74-99) mg/dL POC Glucose (mg/dL) 156 H 123 H (70-110) mg/dL Calcium (8.4-10.2) mg/dL Stool Occult Blood (Negative) 10/13/24 10/13/24 10/13/24 Range/Units 03:04 04:36 05:18 WBC 10.68 H (4.50-10.00) 10*3/uL RBC 3.02 L (4.10-5.20) 10*6/uL Hgb 9.1 L (12.0-15.0) g/dL Hct 28.3 L (37.2-46.3) % PT (10.0-12.5) sec INR (<1.2) APTT (22.0-30.0) sec ABG pH (7.35-7.45) ABG pO2 (83-108) mmHg ABG HCO3 (21-25) mmol/L ABG Total CO2 (19-24) mmol/L ABG O2 Saturation (94-97) % Hemoglobin (11.4-16.0) gm/dL BUN 35 H (7-17) mg/dL Creatinine 1.26 H (0.52-1.04) mg/dL Glucose 186 H (74-99) mg/dL POC Glucose (mg/dL) 206 H (70-110) mg/dL Calcium 7.0 L (8.4-10.2) mg/dL Stool Occult Blood (Negative) 10/13/24 10/13/24 10/13/24 Range/Units 05:24 07:48 09:06 WBC (4.50-10.00) 10*3/uL RBC (4.10-5.20) 10*6/uL Hgb (12.0-15.0) g/dL Hct (37.2-46.3) % PT (10.0-12.5) sec INR (<1.2) APTT (22.0-30.0) sec ABG pH (7.35-7.45) ABG pO2 (83-108) mmHg ABG HCO3 (21-25) mmol/L ABG Total CO2 (19-24) mmol/L ABG O2 Saturation (94-97) % Hemoglobin (11.4-16.0) gm/dL BUN (7-17) mg/dL Creatinine (0.52-1.04) mg/dL Glucose (74-99) mg/dL POC Glucose (mg/dL) 197 H 179 H 179 H (70-110) mg/dL Calcium (8.4-10.2) mg/dL Stool Occult Blood (Negative) 10/13/24 Range/Units 10:12 WBC (4.50-10.00) 10*3/uL RBC (4.10-5.20) 10*6/uL Hgb (12.0-15.0) g/dL Hct (37.2-46.3) % PT (10.0-12.5) sec INR (<1.2) APTT (22.0-30.0) sec ABG pH (7.35-7.45) ABG pO2 (83-108) mmHg ABG HCO3 (21-25) mmol/L ABG Total CO2 (19-24) mmol/L ABG O2 Saturation (94-97) % Hemoglobin (11.4-16.0) gm/dL BUN (7-17) mg/dL Creatinine (0.52-1.04) mg/dL Glucose (74-99) mg/dL POC Glucose (mg/dL) 170 H (70-110) mg/dL Calcium (8.4-10.2) mg/dL Stool Occult Blood (Negative) Microbiology - Last 24 Hours (Table) 10/11/24 00:15 Blood Culture - Preliminary Blood 10/10/24 18:50 Urine Culture - Preliminary Urine,Clean Catch Gram Neg Bacilli Assessment and Plan Assessment: UTI and secondary sepsis with Klebsiella pneumoniae. Blood cultures are being monitored. Cultures possible gram-negative bacillus/Klebsiella pneumoniae and the patient is currently on IV Invanz. Septic shock, recovered and the patient is currently off pressors Acute kidney injury, improving Severe hyperkalemia, treated Anion gap metabolic acidosis, improved Sinus tachycardia, improved History of paroxysmal atrial fibrillation, currently sinus mechanism, ch ronically anticoagulated on Eliquis Diabetes mellitus maintained on insulin pump on outpatient basis, currently on insulin drip. History of hypertension History of hyperlipidemia History of nonobstructive coronary artery disease Elevated troponins, likely secondary to poor renal clearance History of frequent urinary tract infections History of adrenal insufficiency, maintained on Solu-Cortef Obstructive sleep apnea, with home CPAP at APAP 5/13 cm H2O Chronic obstructive pulmonary disease, stable and inactive Plan: Patient currently on 3 liters oxygen by nasal cannula Normal saline at rate of 50 cc an hour, urine output in order of 25 to 30% Creatinine continues to improve and currently down to 1.7 Discontinue the insulin drip and put the patient on Lantus insulin 24 units marguerite ly and sliding scale coverage Hold lisinopril, Aldactone, and potassium supplements; as well as, other antihypertensive medications at the moment. Restart Norvasc for blood pressure control Continue IV Invanz Stress dose hydrocortisone Eliquis has been resumed Continue BuSpar and Wellbutrin Continue aspirin Utilize CPAP for use at bedtime Clinically improved and the patient will be continued to be monitored. The patient can be transferred to a medical surgical floor. Time with Patient: Greater than 30
--- NOTE | 2024-10-13 19:58 | P.PN ---
Subjective Progress Note Date: 10/12/24 74-year-old female with multiple comorbidities states she has had 1 day of nausea vomiting abdominal pain. Patient is a poor historian states that she has had multiple bouts of emesis that appears to be bilious. She states that she is nauseated. Denies any fever chills or night sweats. States that her chronic back pain feels worse. Blood work completed in ED reveals a WBC of 15.7, hemoglobin of 12.7 and platelet count of 299, sodium of 135, potassium 6.5, BUN/creatinine of 47/4.23, blood glucose of 174, troponin elevated at 1.510 UA reveals large number of leukocyte esterase, WBCs and bacteria EKG reviewed, sinus rhythm, rate 94 bpm, no QRS widening or peaked T waves. Nonspecific mild ST depressions. Hyperkalemia was treated in the ED with a combination of insulin 10 units regular, D50 W amp, 1 g calcium gluconate, concentrated albuterol treatment, as well as 5 g of Lokelma. Patient is admitted to ICU for hypotension likely related to septic shock and is on Levophed Objective - Vital Signs Vital signs: Vital Signs Temp 98.3 F 10/12/24 08:00 Pulse 94 10/12/24 11:00 Resp 20 10/12/24 11:00 BP 96/38 10/12/24 03:00 Pulse Ox 96 10/12/24 11:00 FiO2 Intake & Output 10/11/24 10/12/24 10/12/24 18:59 06:59 18:59 Intake Total 4879.295 2085.511 461.971 Output Total 725 885 95 Balance 4154.295 1200.511 366.971 Weight 82.5 kg Intake: IV 1430 1930 450 0.9 KVO 240 60 Dextrose 5% in Water 1 1430 1690 390 000 ml @ 130 mls/hr IV . Q8H51M [facility] with Sodium Bicarb (1 Meq/ml) 150 ml Rx#:[id number] Intake, IV Titration 3199.295 105.511 11.971 Amount Insulin Regular 100 unit 5.17 101.416 11.971 In Sodium Chloride 0.9% 100 ml @ Titrate IV .Q0M [facility] Rx#:[id number] Norepinephrine 4 mg In 29.721 Sodium Chloride 0.9% 250 ml @ 0.03 MCG/KG/MIN 8. 961 mls/hr IV .Q24H [facility] Rx#:[id number] Norepinephrine 8 mg In 148.772 4.095 Sodium Chloride 0.9% 250 ml @ 0.03 MCG/KG/MIN 4. 551 mls/hr IV .Q24H [facility] Rx#:[id number] Sodium Chloride 0.9% 1, 2000 000 ml @ 999 mls/hr IV . Q1H1M ONE Rx#:[id number] Sodium Chloride 0.9% 1, 1000 000 ml @ 999 mls/hr IV . Q1H1M STA Rx#:[id number] Vasopressin 60 unit In 15.632 Sodium Chloride 0.9% 150 ml @ 0.03 UNITS/MIN 4.59 mls/hr IV .Q24H [facility] Rx#: [id number] Oral 250 50 Output: Urine 725 885 95 Other: Voiding Method Indwelling Catheter Indwelling Catheter Indwelling Catheter External Catheter ABP, PAP, CO, CI - Last Documented Arterial Blood Pressure 137/59 - Exam General Impression: Alert and oriented x3, not in acute distress HEENT: Normocephalic atraumatic, extra-ocular movements intact, pupils equal and reactive to light bilaterally, dry mucous membranes Cardiovascular: Heart regular rate and rhythm Chest: Able to complete full sentences, no retractions, no tachypnea Abdomen: abdomen soft, diffuse palpatory abdominal tenderness, non-distended, no organomegaly Musculoskeletal: Pulses present and equal in all extremities, no peripheral edema Motor: no focal deficits noted Neurological: CN II-XII grossly intact, no focal motor or sensory deficits noted Skin: Intact with no visualized rashes Psych: Normal affect and mood - Labs CBC & Chem 7: 10/13/24 05:30 10/13/24 05:18 Labs: Abnormal Lab Results - Last 24 Hours (Table) 10/11/24 10/11/24 10/11/24 Range/Units 12:30 13:07 16:51 WBC (4.50-10.00) 10*3/uL RBC (4.10-5.20) 10*6/uL Hgb (12.0-15.0) g/dL Hct (37.2-46.3) % Immature Gran # (0.00-0.04) 10*3/uL Neutrophils # (1.80-7.70) 10*3/uL Lymphocytes # (0.90-5.00) 10*3/uL Eosinophils # (0.04-0.35) 10*3/uL Carbon Dioxide (22-30) mmol/L BUN (7-17) mg/dL Creatinine (0.52-1.04) mg/dL Glucose (74-99) mg/dL POC Glucose (mg/dL) 452 H 415 H 409 H (70-110) mg/dL Hemoglobin A1c (<=6.0) % Calcium (8.4-10.2) mg/dL 10/11/24 10/11/24 10/11/24 Range/Units 17:30 17:44 18:50 WBC (4.50-10.00) 10*3/uL RBC (4.10-5.20) 10*6/uL Hgb (12.0-15.0) g/dL Hct (37.2-46.3) % Immature Gran # (0.00-0.04) 10*3/uL Neutrophils # (1.80-7.70) 10*3/uL Lymphocytes # (0.90-5.00) 10*3/uL Eosinophils # (0.04-0.35) 10*3/uL Carbon Dioxide 16 L (22-30) mmol/L BUN 37 H (7-17) mg/dL Creatinine 2.52 H (0.52-1.04) mg/dL Glucose 452 H (74-99) mg/dL POC Glucose (mg/dL) 477 H 451 H (70-110) mg/dL Hemoglobin A1c (<=6.0) % Calcium 6.9 L (8.4-10.2) mg/dL 10/11/24 10/11/24 10/11/24 Range/Units 20:52 22:02 22:53 WBC (4.50-10.00) 10*3/uL RBC (4.10-5.20) 10*6/uL Hgb (12.0-15.0) g/dL Hct (37.2-46.3) % Immature Gran # (0.00-0.04) 10*3/uL Neutrophils # (1.80-7.70) 10*3/uL Lymphocytes # (0.90-5.00) 10*3/uL Eosinophils # (0.04-0.35) 10*3/uL Carbon Dioxide (22-30) mmol/L BUN (7-17) mg/dL Creatinine (0.52-1.04) mg/dL Glucose (74-99) mg/dL POC Glucose (mg/dL) 353 H 316 H 297 H (70-110) mg/dL Hemoglobin A1c (<=6.0) % Calcium (8.4-10.2) mg/dL 10/11/24 10/12/24 10/12/24 Range/Units 23:48 01:14 02:54 WBC (4.50-10.00) 10*3/uL RBC (4.10-5.20) 10*6/uL Hgb (12.0-15.0) g/dL Hct (37.2-46.3) % Immature Gran # (0.00-0.04) 10*3/uL Neutrophils # (1.80-7.70) 10*3/uL Lymphocytes # (0.90-5.00) 10*3/uL Eosinophils # (0.04-0.35) 10*3/uL Carbon Dioxide (22-30) mmol/L BUN (7-17) mg/dL Creatinine (0.52-1.04) mg/dL Glucose (74-99) mg/dL POC Glucose (mg/dL) 188 H 165 H 114 H (70-110) mg/dL Hemoglobin A1c (<=6.0) % Calcium (8.4-10.2) mg/dL 10/12/24 10/12/24 10/12/24 Range/Units 04:01 05:00 05:00 WBC 11.06 H (4.50-10.00) 10*3/uL RBC 3.04 L (4.10-5.20) 10*6/uL Hgb 9.2 L (12.0-15.0) g/dL Hct 28.1 L (37.2-46.3) % Immature Gran # 0.09 H (0.00-0.04) 10*3/uL Neutrophils # 9.70 H (1.80-7.70) 10*3/uL Lymphocytes # 0.48 L (0.90-5.00) 10*3/uL Eosinophils # 0.00 L (0.04-0.35) 10*3/uL Carbon Dioxide (22-30) mmol/L BUN (7-17) mg/dL Creatinine (0.52-1.04) mg/dL Glucose (74-99) mg/dL POC Glucose (mg/dL) 134 H (70-110) mg/dL Hemoglobin A1c 7.5 H (<=6.0) % Calcium (8.4-10.2) mg/dL 10/12/24 10/12/24 10/12/24 Range/Units 05:00 05:03 06:03 WBC (4.50-10.00) 10*3/uL RBC (4.10-5.20) 10*6/uL Hgb (12.0-15.0) g/dL Hct (37.2-46.3) % Immature Gran # (0.00-0.04) 10*3/uL Neutrophils # (1.80-7.70) 10*3/uL Lymphocytes # (0.90-5.00) 10*3/uL Eosinophils # (0.04-0.35) 10*3/uL Carbon Dioxide (22-30) mmol/L BUN 37 H (7-17) mg/dL Creatinine 1.86 H (0.52-1.04) mg/dL Glucose 176 H (74-99) mg/dL POC Glucose (mg/dL) 211 H 167 H (70-110) mg/dL Hemoglobin A1c (<=6.0) % Calcium 7.2 L (8.4-10.2) mg/dL 10/12/24 10/12/24 10/12/24 Range/Units 06:51 08:18 09:05 WBC (4.50-10.00) 10*3/uL RBC (4.10-5.20) 10*6/uL Hgb (12.0-15.0) g/dL Hct (37.2-46.3) % Immature Gran # (0.00-0.04) 10*3/uL Neutrophils # (1.80-7.70) 10*3/uL Lymphocytes # (0.90-5.00) 10*3/uL Eosinophils # (0.04-0.35) 10*3/uL Carbon Dioxide (22-30) mmol/L BUN (7-17) mg/dL Creatinine (0.52-1.04) mg/dL Glucose (74-99) mg/dL POC Glucose (mg/dL) 145 H 194 H 179 H (70-110) mg/dL Hemoglobin A1c (<=6.0) % Calcium (8.4-10.2) mg/dL 10/12/24 Range/Units 10:18 WBC (4.50-10.00) 10*3/uL RBC (4.10-5.20) 10*6/uL Hgb (12.0-15.0) g/dL Hct (37.2-46.3) % Immature Gran # (0.00-0.04) 10*3/uL Neutrophils # (1.80-7.70) 10*3/uL Lymphocytes # (0.90-5.00) 10*3/uL Eosinophils # (0.04-0.35) 10*3/uL Carbon Dioxide (22-30) mmol/L BUN (7-17) mg/dL Creatinine (0.52-1.04) mg/dL Glucose (74-99) mg/dL POC Glucose (mg/dL) 158 H (70-110) mg/dL Hemoglobin A1c (<=6.0) % Calcium (8.4-10.2) mg/dL Microbiology - Last 24 Hours (Table) 10/10/24 18:50 Urine Culture - Preliminary Urine,Clean Catch Gram Neg Bacilli Assessment and Plan Assessment: 1. UTI/sepsis/septic shock CT of the abdomen and pelvis which did not show any suspicious bowel obstructions or ileus. Bilateral renal cysts were noted. No nephrolithiasis or hydronephrosis. Continue empiric antibiotics. Urine and blood cultures pending. 2. Acute renal failure; likely prerenal azotemia; patient received IV fluids in the ED per protocol; will monitor strict KATIE's, daily weights, renal function electrolytes; avoid nephrotoxins and hypotension; nephrology is consulted 3. Critical hyperkalemia; treated with K cocktail including insulin 10 units regular, D50 W amp, 1 g calcium gluconate, concentrated albuterol treatment, as well as 5 g of Lokelma. - We will monitor electrolytes closely 4. elevated troponin; likely related to acute renal failure and septic shock; patient does have history of nonobstructive coronary artery disease 5. Paroxysmal atrial fibrillation; patient is currently in NSR; anticoagulated with Eliquis 6. Hypertension; antihypertensive medications remain on hold given septic shock; we will resume once patient is improved 7. Hyperlipidemia 8. Adrenal insufficiency; patient is maintained on Solu-Cortef 9. COPD; not in exacerbation; continue with home inhaler therapy DVT prophylaxis; SCD/Eliquis CODE STATUS; full code
--- NOTE | 2024-10-13 19:58 | P.HPIM ---
History of Present Illness H&P Date: 10/11/24 Chief Complaint: Nausea/vomiting/diarrhea 74-year-old female with multiple comorbidities states she has had 1 day of nausea vomiting abdominal pain. Patient is a poor historian states that she has had multiple bouts of emesis that appears to be bilious. She states that she is nauseated. Denies any fever chills or night sweats. States that her chronic back pain feels worse. Blood work completed in ED reveals a WBC of 15.7, hemoglobin of 12.7 and platelet count of 299, sodium of 135, potassium 6.5, BUN/creatinine of 47/4.23, blood glucose of 174, troponin elevated at 1.510 UA reveals large number of leukocyte esterase, WBCs and bacteria EKG reviewed, sinus rhythm, rate 94 bpm, no QRS widening or peaked T waves. Nonspecific mild ST depressions. Hyperkalemia was treated in the ED with a combination of insulin 10 units regular, D50 W amp, 1 g calcium gluconate, concentrated albuterol treatment, as well as 5 g of Lokelma. Patient is admitted to ICU for hypotension likely related to septic shock and is on Levophed Past Medical History Past Medical History: Atrial Fibrillation, Diabetes Mellitus, Deep Vein Thrombosis (DVT), Fibromyalgia, Hyperlipidemia, Hypertension, Osteoarthritis (OA), Pneumonia, Renal Disease, Sleep Apnea/CPAP/BIPAP, Vascular Disorder Additional Past Medical History / Comment(s): Pt recently admitted to [facility] with R flank pain and UTI 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, DVT R calf in 1976, cardiac murmur, occipital neuraligia, balance issues-has narrowing of vessels "in the back of my head", vertigo, varicosities, states rt shoulder torn rotator cuff History of Any Multi-Drug Resistant Organisms: ESBL, MRSA, VRE Date of last positivie culture/infection: 11/25/20 ESBL;12/06/19 VRE; 03/10/11 MRSA MDRO Source:: Urine ESBL; Urine-VRE: MRSA 4th Right TOE Past Surgical History: Appendectomy, Back Surgery, Bladder Surgery, Breast Surgery, Cholecystectomy, Heart Catheterization, Hysterectomy, Orthopedic Surgery, Tonsillectomy Additional Past Surgical History / Comment(s): Lumbar fusions, bladder suspension, occipital nerve blocks, 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, R wrist/elbow nerve repair, bone removed R shoulder, 4th toe R foot partial amputation, bilateral feet/bunionectomies, R knee arthroscopies, R orbit decompression with ethmoidectomy and eyelid lift, EGD, colonoscopies, cystocopies, lithotripsy/stents, bilateral breast reduction, bilateral cataract removals, parathyroid surgery - April 2019, pain clinic procedures Past Anesthesia/Blood Transfusion Reactions: No Reported Reaction Additional Past Anesthesia/Blood Transfusion Reaction / Comment(s): never recieved blood Past Psychological History: Depression Additional Psychological History / Comment(s): Pt resides with her spouse. She uses a walker. She normally drives. She has a nebulizer, cpap, bsc, shower chair, bp machine, dexcom monitor system for her BG and insulin pump. Smoking Status: Never smoker Past Alcohol Use History: None Reported Additional Past Alcohol Use History / Comment(s): no alcohol Past Drug Use History: None Reported - Past Family History Father Family Medical History: Coronary Artery Disease (CAD), CVA/TIA, Diabetes Mellitus, Myocardial Infarction (SC), Pneumonia Additional Family Medical History / Comment(s): Father at the age of 78yrs from SC and pneumonia. Mother Family Medical History: Cancer, Congestive Heart Failure (CHF) Additional Family Medical History / Comment(s): Mother had uterine cancer. She recently at the age of 96yrs old from shingles. Medications and Allergies Home Medications Medication Instructions Recorded Confirmed Type Meclizine [Antivert] 25 mg PO BID PRN 11/26/17 10/11/24 History L.acidoph,Paracasei, B.lactis 2 cap PO BID 10/08/18 10/11/24 History [Probiotic] Melatonin 5 mg PO HS PRN 10/08/18 10/11/24 History Thiamine [Vitamin B-1] 100 mg PO HS 10/08/18 10/11/24 History Vitamin B-Complex Drops 1 drop PO BID 10/08/18 10/11/24 History C,E,Zinc,Copper 11/Mpsiv9f/Lut 1 cap PO DAILY 06/25/20 10/11/24 History [Ocuvite Adult 50 Plus Softgel] Brimonidine Tartrate [Alphagan P 1 drop RIGHT EYE BID 11/26/20 10/11/24 History 0.2% Ophth Soln] Pantoprazole Sodium [Protonix] 40 mg PO BID 11/26/20 10/11/24 History Insulin Aspart (For Pump) [NovoLOG 0.01 unit SQ-PUMP CONTINUOUS 03/03/21 10/11/24 History (For Pump)] Cranberry Fruit Extract [Cranberry] 500 mg PO BID 05/25/22 10/11/24 History Multivit-Min/Folic Acid/Lsf401 1 tab PO DAILY 05/25/22 10/11/24 History [Alive Premium Adult Multivit] Butalb/APAP/Caff 50-325-40Mg 1 tab PO Q6H PRN #12 tab 09/06/22 10/11/24 Rx [Fioricet 50-325-40] Dhea 50mg With B-12 2500mcg 1 tab PO HS 04/27/23 10/11/24 History Folic Acid 800mcg With Folate 1 tab PO HS 04/27/23 10/11/24 History 1333mg Magnesium Oxide [Mag-Ox] 400 mg PO BID 09/20/23 10/11/24 History buPROPion XL [Wellbutrin XL] 300 mg PO DAILY 09/20/23 10/11/24 History Iron 27mg 27 mg PO DAILY 09/23/23 10/11/24 History Turmeric Complex 550mg 550 mg PO HS 09/23/23 10/11/24 History Apixaban [Eliquis] 5 mg PO BID tab 09/28/23 10/11/24 Rx HYDROcodone/APAP 10-325MG [[place] 1 tab PO Q6H PRN #12 tab 09/28/23 10/11/24 Rx 10-325] ARIPiprazole [Abilify] 10 mg PO HS 03/10/24 10/11/24 History Metoprolol Succinate [Toprol XL] 100 mg PO HS 03/10/24 10/11/24 History Potassium Gluconate 99 mg PO DAILY 03/10/24 10/11/24 History Rosuvastatin Calcium [Crestor] 5 mg PO HS 03/10/24 10/11/24 History Scopolamine [Scopolamine 1 MG/72 1 patch TRANSDERM Q72H PRN 03/10/24 10/11/24 History HR patch] Spironolactone [Aldactone] 50 mg PO DAILY 03/10/24 10/11/24 History Aspirin [Adult Low Dose Aspirin EC] 81 mg PO DAILY 05/06/24 10/11/24 History Promethazine [Phenergan] 25 mg PO BID PRN 05/06/24 10/11/24 History hydroCHLOROthiazide 25 mg PO DAILY 05/06/24 10/11/24 History Cyanocobalamin (Vitamin B-12) 2,500 mcg PO DAILY 07/19/24 10/11/24 History [Vitamin B-12] Dorzolamide 2% [Trusopt 2%] 1 drops RIGHT EYE BID 07/19/24 10/11/24 History lisinopriL [Zestril] 30 mg PO DAILY@1200 07/19/24 10/11/24 History Nystatin 100,000 Unit/gm Powd 1 applic TOPICAL BID 7 Days #1 each 07/26/24 10/11/24 Rx [Mycostatin Powder] Ondansetron [Zofran] 4 mg PO TID PRN #20 tab 07/26/24 10/11/24 Rx amLODIPine [Norvasc] 10 mg PO DAILY #30 tab 07/26/24 10/11/24 Rx busPIRone HCl [Buspar] 10 mg PO BID #0 07/26/24 10/11/24 Rx Albuterol Nebulized [Ventolin 2.5 mg INHALATION RT-QID PRN 10/11/24 10/11/24 History Nebulized] Hydrocortisone [Cortef] 10 mg PO HS 10/11/24 10/11/24 History Hydrocortisone [Cortef] 20 mg PO DAILY 10/11/24 10/11/24 History Allergies Allergy/AdvReac Type Severity Reaction Status Date / Time butorphanol tartrate Allergy BLISTERS Verified 10/11/24 08:30 [From Stadol] IN MOUTH ceftriaxone [From Rocephin] Allergy Rash/Hives Verified 10/11/24 08:30 clarithromycin [From Biaxin] Allergy Rash/Hives Verified 10/11/24 08:30 clindamycin Allergy Rash/Hives Verified 10/11/24 08:30 codeine Allergy Rash/Hives Verified 10/11/24 08:30 ergotamine tartrate Allergy Rash/Hives Verified 10/11/24 08:30 [From Cafergot] erythromycin base Allergy RASH, GI Verified 10/11/24 08:30 [From E-Mycin] SYMPTOMS ketorolac tromethamine Allergy Rash/Hives Verified 10/11/24 08:30 [From Toradol] liraglutide [From Victoza] Allergy Rash/Hives Verified 10/11/24 08:30 morphine Allergy Rash/Hives Verified 10/11/24 08:30 Penicillins Allergy Rash/Hives Verified 10/11/24 08:30 on upper body pentazocine lactate Allergy SEVERE Verified 10/11/24 08:30 [From Talwin] BLISTERS IN MOUTH pregabalin [From Lyrica] Allergy Rash/Hives Verified 10/11/24 08:30 propoxyphene HCl Allergy Rash/Hives Verified 10/11/24 08:30 [From Darvon] Sulfa (Sulfonamide Allergy Rash/Hives Verified 10/11/24 08:30 Antibiotics) sulfamethoxazole Allergy Rash/Hives Verified 10/11/24 08:30 [From Bactrim] tizanidine Allergy Unknown Verified 10/11/24 08:30 tramadol Allergy Unknown Verified 10/11/24 08:30 trimethoprim [From Bactrim] Allergy Rash/Hives Verified 10/11/24 08:30 vancomycin Allergy lip Verified 10/11/24 08:30 swelling metoclopramide [From Reglan] AdvReac Hallucinati Verified 10/11/24 08:30 ons monosodium glutamate [MSG] AdvReac Nausea & Verified 10/11/24 08:30 Vomiting nalbuphine HCl [From Nubain] AdvReac Nausea & Verified 10/11/24 08:30 Vomiting Physical Exam Vitals: Vital Signs Temp Pulse Resp BP Pulse Ox 10/11/24 10:30 122 H 28 H 98 10/11/24 10:19 123 H 16 98 10/11/24 09:15 128 H 15 103/64 97 10/11/24 09:00 129 H 29 H 103/64 98 10/11/24 08:45 128 H 21 103/64 97 10/11/24 08:30 126 H 28 H 103/64 96 10/11/24 08:15 129 H 26 H 83/39 98 10/11/24 08:00 130 H 32 H 63/31 97 10/11/24 07:45 101.1 F H 131 H 22 64/37 97 10/11/24 07:30 129 H 33 H 76/56 10/11/24 07:15 137 H 44 H 76/56 10/11/24 07:00 65 H 81/47 93 L 10/11/24 06:00 125 H 34 H 92/43 92 L 10/11/24 05:00 122 H 21 86/54 94 L 10/11/24 04:00 98.7 F 120 H 20 91/48 93 L 10/11/24 03:00 123 H 41 H 124/80 10/11/24 02:00 124 H 30 H 124/80 97 10/11/24 01:00 118 H 25 H 108/55 95 10/11/24 00:26 118 H 20 99/54 10/11/24 00:00 98.7 F 115 H 22 99/54 97 10/10/24 23:21 98.7 F 121 H 30 H 99/54 10/10/24 23:18 113 H 25 H 10/10/24 23:08 98.8 F 112 H 20 101/52 97 10/10/24 20:30 105 H 20 122/85 97 10/10/24 19:39 92 10/10/24 19:33 90 10/10/24 19:30 96 20 83/54 95 10/10/24 19:00 96 24 92/51 97 10/10/24 18:10 89 24 100/52 10/10/24 17:41 89 20 88/38 94 L 10/10/24 17:15 98.6 F 52 L 20 74/64 97 Intake and Output 10/10/24 10/11/24 10/11/24 22:59 06:59 14:59 Intake Total 1210 1519.721 Output Total 50 300 115 Balance -50 910 1404.721 Intake: IV 390 Dextrose 5% in Water 1, 390 000 ml @ 130 mls/hr IV . Q8H51M KIARA with Sodium Bicarb (1 Meq/ml) 150 ml Rx#:[id number] Intake, IV Titration 1060 1029.721 Amount Dextrose 5% in Water 1, 780 000 ml @ 130 mls/hr IV . Q8H51M KIARA with Sodium Bicarb (1 Meq/ml) 150 ml Rx#:[id number] Levofloxacin 750Mg-D5w 150 Pmx 750 mg In Dextrose/ Water 1 150ml.bag @ 100 mls/hr IVPB ONCE STA Rx#: [id number] Norepinephrine 4 mg In 29.721 Sodium Chloride 0.9% 250 ml @ 0.03 MCG/KG/MIN 8. 961 mls/hr IV .Q24H KIARA Rx#:[id number] Sodium Chloride 0.9% 1, 130 000 ml @ 130 mls/hr IV . Q7H42M KIARA Rx#:[id number] Sodium Chloride 0.9% 1, 1000 000 ml @ 999 mls/hr IV . Q1H1M STA Rx#:[id number] Oral 150 100 Output: Urine 50 300 115 Uretheral (Lai) 50 Other: Voiding Method External Catheter # Voids 0 Weight 65.771 kg 78.4 kg ABP, PAP, CO, CI - Last 8 Hours Arterial Blood Pressure 109/48 Arterial Blood Pressure 102/49 Arterial Blood Pressure 92/38 Arterial Blood Pressure 109/49 Arterial Blood Pressure 118/42 General Impression: Alert and oriented x3, not in acute distress HEENT: Normocephalic atraumatic, extra-ocular movements intact, pupils equal and reactive to light bilaterally, dry mucous membranes Cardiovascular: Heart regular rate and rhythm Chest: Able to complete full sentences, no retractions, no tachypnea Abdomen: abdomen soft, diffuse palpatory abdominal tenderness, non-distended, no organomegaly Musculoskeletal: Pulses present and equal in all extremities, no peripheral edema Motor: no focal deficits noted Neurological: CN II-XII grossly intact, no focal motor or sensory deficits noted Skin: Intact with no visualized rashes Psych: Normal affect and mood Results CBC & Chem 7: 10/13/24 05:30 10/13/24 05:18 Labs: Abnormal Lab Results - Last 24 Hours (Table) 10/10/24 10/10/24 10/10/24 Range/Units 17:56 17:56 17:56 WBC 15.72 H (4.50-10.00) 10*3/uL RBC (4.10-5.20) 10*6/uL Hgb (12.0-15.0) g/dL Hct (37.2-46.3) % MCV (80.0-97.0) fL MCHC 31.9 L (32.0-37.0) g/dL Immature Gran # 0.18 H (0.00-0.04) 10*3/uL Neutrophils # 12.47 H (1.80-7.70) 10*3/uL Monocytes # 1.58 H (0.20-1.00) 10*3/uL ABG pH (7.35-7.45) ABG pCO2 (35-45) mmHg ABG HCO3 (21-25) mmol/L ABG Total CO2 (19-24) mmol/L ABG O2 Saturation (94-97) % Hemoglobin (11.4-16.0) gm/dL Sodium 135 L (137-145) mmol/L Potassium 6.5 H* (3.5-5.1) mmol/L Chloride (98-107) mmol/L Carbon Dioxide 10 L (22-30) mmol/L BUN 47 H (7-17) mg/dL Creatinine 4.23 H (0.52-1.04) mg/dL Glucose 151 H (74-99) mg/dL POC Glucose (mg/dL) (70-110) mg/dL Troponin I 1.510 H* (0.000-0.034) ng/mL Urine Appearance (Clear) Urine Protein (Negative) Urine Blood (Negative) Ur Leukocyte Esterase (Negative) Urine RBC (0-5) /hpf Urine WBC (0-5) /hpf Urine WBC Clumps (None) /hpf Urine Bacteria (None) /hpf Urine Mucus (None) /hpf 10/10/24 10/10/24 10/11/24 Range/Units 18:50 23:14 00:15 WBC (4.50-10.00) 10*3/uL RBC (4.10-5.20) 10*6/uL Hgb (12.0-15.0) g/dL Hct (37.2-46.3) % MCV (80.0-97.0) fL MCHC (32.0-37.0) g/dL Immature Gran # (0.00-0.04) 10*3/uL Neutrophils # (1.80-7.70) 10*3/uL Monocytes # (0.20-1.00) 10*3/uL ABG pH (7.35-7.45) ABG pCO2 (35-45) mmHg ABG HCO3 (21-25) mmol/L ABG Total CO2 (19-24) mmol/L ABG O2 Saturation (94-97) % Hemoglobin (11.4-16.0) gm/dL Sodium (137-145) mmol/L Potassium 5.3 H (3.5-5.1) mmol/L Chloride 109 H (98-107) mmol/L Carbon Dioxide 8 L* (22-30) mmol/L BUN 43 H (7-17) mg/dL Creatinine 3.47 H (0.52-1.04) mg/dL Glucose 170 H (74-99) mg/dL POC Glucose (mg/dL) 174 H (70-110) mg/dL Troponin I (0.000-0.034) ng/mL Urine Appearance Turbid H (Clear) Urine Protein 2+ H (Negative) Urine Blood Small H (Negative) Ur Leukocyte Esterase Large H (Negative) Urine RBC 21 H (0-5) /hpf Urine WBC >182 H (0-5) /hpf Urine WBC Clumps Many H (None) /hpf Urine Bacteria Moderate H (None) /hpf Urine Mucus Few H (None) /hpf 10/11/24 10/11/24 10/11/24 Range/Units 00:15 02:53 02:53 WBC 11.82 H (4.50-10.00) 10*3/uL RBC 3.47 L (4.10-5.20) 10*6/uL Hgb 10.3 L (12.0-15.0) g/dL Hct 34.0 L (37.2-46.3) % MCV 98.0 H (80.0-97.0) fL MCHC 30.3 L (32.0-37.0) g/dL Immature Gran # 0.11 H (0.00-0.04) 10*3/uL Neutrophils # 9.35 H (1.80-7.70) 10*3/uL Monocytes # 1.06 H (0.20-1.00) 10*3/uL ABG pH (7.35-7.45) ABG pCO2 (35-45) mmHg ABG HCO3 (21-25) mmol/L ABG Total CO2 (19-24) mmol/L ABG O2 Saturation (94-97) % Hemoglobin (11.4-16.0) gm/dL Sodium 135 L (137-145) mmol/L Potassium 5.4 H (3.5-5.1) mmol/L Chloride 108 H (98-107) mmol/L Carbon Dioxide 6 L* (22-30) mmol/L BUN 44 H (7-17) mg/dL Creatinine 3.40 H (0.52-1.04) mg/dL Glucose 210 H (74-99) mg/dL POC Glucose (mg/dL) (70-110) mg/dL Troponin I 1.130 H* (0.000-0.034) ng/mL Urine Appearance (Clear) Urine Protein (Negative) Urine Blood (Negative) Ur Leukocyte Esterase (Negative) Urine RBC (0-5) /hpf Urine WBC (0-5) /hpf Urine WBC Clumps (None) /hpf Urine Bacteria (None) /hpf Urine Mucus (None) /hpf 10/11/24 10/11/24 Range/Units 06:44 07:59 WBC (4.50-10.00) 10*3/uL RBC (4.10-5.20) 10*6/uL Hgb (12.0-15.0) g/dL Hct (37.2-46.3) % MCV (80.0-97.0) fL MCHC (32.0-37.0) g/dL Immature Gran # (0.00-0.04) 10*3/uL Neutrophils # (1.80-7.70) 10*3/uL Monocytes # (0.20-1.00) 10*3/uL ABG pH 7.19 L* (7.35-7.45) ABG pCO2 28 L (35-45) mmHg ABG HCO3 11 L (21-25) mmol/L ABG Total CO2 12 L (19-24) mmol/L ABG O2 Saturation 97.8 H (94-97) % Hemoglobin 9.8 L (11.4-16.0) gm/dL Sodium (137-145) mmol/L Potassium (3.5-5.1) mmol/L Chloride (98-107) mmol/L Carbon Dioxide (22-30) mmol/L BUN (7-17) mg/dL Creatinine (0.52-1.04) mg/dL Glucose (74-99) mg/dL POC Glucose (mg/dL) 252 H (70-110) mg/dL Troponin I (0.000-0.034) ng/mL Urine Appearance (Clear) Urine Protein (Negative) Urine Blood (Negative) Ur Leukocyte Esterase (Negative) Urine RBC (0-5) /hpf Urine WBC (0-5) /hpf Urine WBC Clumps (None) /hpf Urine Bacteria (None) /hpf Urine Mucus (None) /hpf Thrombosis Risk Factor Assmnt - Choose All That Apply Any of the Below Risk Factors Present?: Yes Each Factor Represents 1 point: Sepsis (< 1month) Each Risk Factor Represents 3 Points: Age 75 years or older Other congenital or acquired thrombophilia - If yes, enter type in comment: No Thrombosis Risk Factor Assessment Total Risk Factor Score: 4 Thrombosis Risk Factor Assessment Level: Moderate Risk Assessment and Plan Assessment: 1. UTI/sepsis/septic shock CT of the abdomen and pelvis which did not show any suspicious bowel obstructions or ileus. Bilateral renal cysts were noted. No nephrolithiasis or hydronephrosis. Continue empiric antibiotics. Urine and blood cultures pending. 2. Acute renal failure; likely prerenal azotemia; patient received IV fluids in the ED per protocol; will monitor strict KATIE's, daily weights, renal function electrolytes; avoid nephrotoxins and hypotension; nephrology is consulted 3. Critical hyperkalemia; treated with K cocktail including insulin 10 units regular, D50 W amp, 1 g calcium gluconate, concentrated albuterol treatment, as well as 5 g of Lokelma. - We will monitor electrolytes closely 4. elevated troponin; likely related to acute renal failure and septic shock; patient does have history of nonobstructive coronary artery disease 5. Paroxysmal atrial fibrillation; patient is currently in NSR; anticoagulated with Eliquis 6. Hypertension; antihypertensive medications remain on hold given septic shock; we will resume once patient is improved 7. Hyperlipidemia 8. Adrenal insufficiency; patient is maintained on Solu-Cortef 9. COPD; not in exacerbation; continue with home inhaler therapy DVT prophylaxis; SCD/Eliquis CODE STATUS; full code
--- NOTE | 2024-10-13 20:01 | P.PN ---
Subjective Progress Note Date: 10/13/24 74-year-old female with multiple comorbidities states she has had 1 day of nausea vomiting abdominal pain. Patient is a poor historian states that she has had multiple bouts of emesis that appears to be bilious. She states that she is nauseated. Denies any fever chills or night sweats. States that her chronic back pain feels worse. Blood work completed in ED reveals a WBC of 15.7, hemoglobin of 12.7 and platelet count of 299, sodium of 135, potassium 6.5, BUN/creatinine of 47/4.23, blood glucose of 174, troponin elevated at 1.510 UA reveals large number of leukocyte esterase, WBCs and bacteria EKG reviewed, sinus rhythm, rate 94 bpm, no QRS widening or peaked T waves. Nonspecific mild ST depressions. Hyperkalemia was treated in the ED with a combination of insulin 10 units regular, D50 W amp, 1 g calcium gluconate, concentrated albuterol treatment, as well as 5 g of Lokelma. Patient is admitted to ICU for hypotension likely related to septic shock and is on Levophed 10/13/2024 -- the patient is seen and evaluated in room at bedside; remains in ICU as PCU overflow; patient is more awake and alert and the patient is communicating. -- The patient is afebrile. Hemodynamically stable. -- urine culture is positive for Klebsiella pneumonia and the patient remains on IV Invanz and the choice of antibiotics was made based on her extensive allergies. - white cell count is currently down to 10.04 with a hemoglobin of 8.7 and a platelet count of 185. Sodium is 141, creatinine continues to improve and is down to 1.26 with a BUN of 35. Potassium is at 3.8. Bicarb level is at 28. - patient remains on an insulin drip and she is known to have diabetes mellitus maintained on insulin pump on an outpatient basis. Plan is to to transition this patient to long-acting insulin with Lantus. The patient is also on stress dose hydrocortisone. This was given to her due to her underlying chronic adrenal sufficiency Objective - Vital Signs Vital signs: Vital Signs Temp 97.8 F 10/13/24 08:00 Pulse 77 10/13/24 09:00 Resp 24 10/13/24 09:00 BP 137/77 10/13/24 09:00 Pulse Ox 98 10/13/24 09:00 FiO2 Intake & Output 10/12/24 10/13/24 10/13/24 18:59 06:59 18:59 Intake Total 905.836 942.892 190 Output Total 545 490 55 Balance 360.836 452.892 135 Intake: IV 880 840 140 0.9 KVO 120 240 40 Dextrose 5% in Water 1, 260 000 ml @ 130 mls/hr IV . Q8H51M [facility] with Sodium Bicarb (1 Meq/ml) 150 ml Rx#:[id number] Sodium Chloride 0.9% 1, 500 600 100 000 ml @ 50 mls/hr IV . Q20H [facility] Rx#:[id number] Intake, IV Titration 25.836 102.892 50 Amount Ertapenem 0.5 gm In 50 Sodium Chloride 0.9% 50 ml @ 100 mls/hr IVPB DAILY [facility] Rx#:[id number] Heparin Sod,Pork in 0.45% 64.845 NaCl 25,000 unit In 0.45 % NaCl 1 250ml.bag @ 12 UNITS/KG/HR 9.9 mls/hr IV .Q24H [facility] Rx#:[id number] Insulin Regular 100 unit 25.836 27.647 In Sodium Chloride 0.9% 100 ml @ Titrate IV .Q0M [facility] Rx#:[id number] Nitroglycerin-D5w Pmx 50 10.4 mg In Dextrose/Water 1 250ml.bag @ 5 MCG/MIN 1.5 mls/hr IV .Q24H [facility] Rx#: [id number] Output: Urine 545 490 55 Other: Voiding Method Indwelling Catheter Indwelling Catheter Indwelling Catheter ABP, PAP, CO, CI - Last Documented Arterial Blood Pressure 146/59 - Exam General Impression: Alert and oriented x3, not in acute distress HEENT: Normocephalic atraumatic, extra-ocular movements intact, pupils equal and reactive to light bilaterally, dry mucous membranes Cardiovascular: Heart regular rate and rhythm Chest: Able to complete full sentences, no retractions, no tachypnea Abdomen: abdomen soft, diffuse palpatory abdominal tenderness, non-distended, no organomegaly Musculoskeletal: Pulses present and equal in all extremities, no peripheral edema Motor: no focal deficits noted Neurological: CN II-XII grossly intact, no focal motor or sensory deficits noted Skin: Intact with no visualized rashes Psych: Normal affect and mood - Labs CBC & Chem 7: 10/13/24 05:30 10/13/24 05:18 Labs: Abnormal Lab Results - Last 24 Hours (Table) 10/12/24 10/12/24 10/12/24 Range/Units 10:18 14:27 14:56 WBC (4.50-10.00) 10*3/uL RBC (4.10-5.20) 10*6/uL Hgb (12.0-15.0) g/dL Hct (37.2-46.3) % PT (10.0-12.5) sec INR (<1.2) APTT (22.0-30.0) sec ABG pH (7.35-7.45) ABG pO2 (83-108) mmHg ABG HCO3 (21-25) mmol/L ABG Total CO2 (19-24) mmol/L ABG O2 Saturation (94-97) % Hemoglobin (11.4-16.0) gm/dL BUN (7-17) mg/dL Creatinine (0.52-1.04) mg/dL Glucose (74-99) mg/dL POC Glucose (mg/dL) 158 H 228 H (70-110) mg/dL Calcium (8.4-10.2) mg/dL Stool Occult Blood Positive H (Negative) 10/12/24 10/12/24 10/12/24 Range/Units 15:35 16:43 18:09 WBC (4.50-10.00) 10*3/uL RBC (4.10-5.20) 10*6/uL Hgb (12.0-15.0) g/dL Hct (37.2-46.3) % PT 12.7 H (10.0-12.5) sec INR 1.2 H (<1.2) APTT (22.0-30.0) sec ABG pH (7.35-7.45) ABG pO2 (83-108) mmHg ABG HCO3 (21-25) mmol/L ABG Total CO2 (19-24) mmol/L ABG O2 Saturation (94-97) % Hemoglobin (11.4-16.0) gm/dL BUN (7-17) mg/dL Creatinine (0.52-1.04) mg/dL Glucose (74-99) mg/dL POC Glucose (mg/dL) 192 H 170 H (70-110) mg/dL Calcium (8.4-10.2) mg/dL Stool Occult Blood (Negative) 10/12/24 10/12/24 10/12/24 Range/Units 21:06 21:54 21:54 WBC 11.29 H (4.50-10.00) 10*3/uL RBC 2.92 L (4.10-5.20) 10*6/uL Hgb 8.9 L (12.0-15.0) g/dL Hct 27.1 L (37.2-46.3) % PT (10.0-12.5) sec INR (<1.2) APTT 44.2 H (22.0-30.0) sec ABG pH (7.35-7.45) ABG pO2 (83-108) mmHg ABG HCO3 (21-25) mmol/L ABG Total CO2 (19-24) mmol/L ABG O2 Saturation (94-97) % Hemoglobin (11.4-16.0) gm/dL BUN (7-17) mg/dL Creatinine (0.52-1.04) mg/dL Glucose (74-99) mg/dL POC Glucose (mg/dL) 154 H (70-110) mg/dL Calcium (8.4-10.2) mg/dL Stool Occult Blood (Negative) 10/12/24 10/12/24 10/13/24 Range/Units 23:05 23:08 03:00 WBC (4.50-10.00) 10*3/uL RBC (4.10-5.20) 10*6/uL Hgb (12.0-15.0) g/dL Hct (37.2-46.3) % PT (10.0-12.5) sec INR (<1.2) APTT (22.0-30.0) sec ABG pH 7.48 H (7.35-7.45) ABG pO2 114 H (83-108) mmHg ABG HCO3 33 H (21-25) mmol/L ABG Total CO2 34 H (19-24) mmol/L ABG O2 Saturation 99.4 H (94-97) % Hemoglobin 9.1 L (11.4-16.0) gm/dL BUN (7-17) mg/dL Creatinine (0.52-1.04) mg/dL Glucose (74-99) mg/dL POC Glucose (mg/dL) 156 H 123 H (70-110) mg/dL Calcium (8.4-10.2) mg/dL Stool Occult Blood (Negative) 10/13/24 10/13/24 10/13/24 Range/Units 03:04 04:36 05:18 WBC 10.68 H (4.50-10.00) 10*3/uL RBC 3.02 L (4.10-5.20) 10*6/uL Hgb 9.1 L (12.0-15.0) g/dL Hct 28.3 L (37.2-46.3) % PT (10.0-12.5) sec INR (<1.2) APTT (22.0-30.0) sec ABG pH (7.35-7.45) ABG pO2 (83-108) mmHg ABG HCO3 (21-25) mmol/L ABG Total CO2 (19-24) mmol/L ABG O2 Saturation (94-97) % Hemoglobin (11.4-16.0) gm/dL BUN 35 H (7-17) mg/dL Creatinine 1.26 H (0.52-1.04) mg/dL Glucose 186 H (74-99) mg/dL POC Glucose (mg/dL) 206 H (70-110) mg/dL Calcium 7.0 L (8.4-10.2) mg/dL Stool Occult Blood (Negative) 10/13/24 10/13/24 10/13/24 Range/Units 05:24 07:48 09:06 WBC (4.50-10.00) 10*3/uL RBC (4.10-5.20) 10*6/uL Hgb (12.0-15.0) g/dL Hct (37.2-46.3) % PT (10.0-12.5) sec INR (<1.2) APTT (22.0-30.0) sec ABG pH (7.35-7.45) ABG pO2 (83-108) mmHg ABG HCO3 (21-25) mmol/L ABG Total CO2 (19-24) mmol/L ABG O2 Saturation (94-97) % Hemoglobin (11.4-16.0) gm/dL BUN (7-17) mg/dL Creatinine (0.52-1.04) mg/dL Glucose (74-99) mg/dL POC Glucose (mg/dL) 197 H 179 H 179 H (70-110) mg/dL Calcium (8.4-10.2) mg/dL Stool Occult Blood (Negative) Microbiology - Last 24 Hours (Table) 10/11/24 00:15 Blood Culture - Preliminary Blood 10/10/24 18:50 Urine Culture - Preliminary Urine,Clean Catch Gram Neg Bacilli Assessment and Plan Assessment: 1. UTI/sepsis/septic shock CT of the abdomen and pelvis which did not show any suspicious bowel obstructions or ileus. Bilateral renal cysts were noted. No nephrolithiasis or hydronephrosis. Continue empiric antibiotics. Urine and blood cultures pending. 2. Acute renal failure; likely prerenal azotemia; patient received IV fluids in the ED per protocol; will monitor strict KATIE's, daily weights, renal function electrolytes; avoid nephrotoxins and hypotension; nephrology is consulted 3. Critical hyperkalemia; treated with K cocktail including insulin 10 units regular, D50 W amp, 1 g calcium gluconate, concentrated albuterol treatment, as well as 5 g of Lokelma. - We will monitor electrolytes closely 4. elevated troponin; likely related to acute renal failure and septic shock; patient does have history of nonobstructive coronary artery disease 5. Paroxysmal atrial fibrillation; patient is currently in NSR; anticoagulated with Eliquis 6. Hypertension; antihypertensive medications remain on hold given septic shock; we will resume once patient is improved 7. Hyperlipidemia 8. Adrenal insufficiency; patient is maintained on Solu-Cortef 9. COPD; not in exacerbation; continue with home inhaler therapy DVT prophylaxis; SCD/Eliquis CODE STATUS; full code
[2024-10-13 20:30] LABS: Glucose,Whole Blood 241 mg/dL (70-110)
[2024-10-13] MEDS: ALPRAZolam 0.25 MG TAB PO PRN (21:08)
[2024-10-13] MEDS ORDERED: LEVOFLOXACIN 500MG-D5W PMX 500 MG in DEXTROSE/WATER 1 100ML.BAG IVPB SCH (22:00)
[2024-10-14] MEDS: SODIUM CHLORIDE 0.9% 1,000 ML in EMPTY BAG 1 BAG IV SCH (00:22)
[2024-10-14 05:08] LABS: Basophils # (A) 0.01 10*3/uL (0.00-0.10); Basophils % (A) 0.1 %; HCT 28.5 % (37.2-46.3); HGB 8.8 g/dL (12.0-15.0); Lymphocytes # (A) 0.52 10*3/uL (0.90-5.00); MCHC 30.9 g/dL (32.0-37.0); MCV 97.3 fL (80.0-97.0); Mean Platelet Volume 11.2 fL (9.5-12.2); Monocytes # (A) 0.41 10*3/uL (0.20-1.00); Monocytes % (A) 4.7 %; Neutrophils # (A) 7.66 10*3/uL (1.80-7.70); Neutrophils % (A) 88.4 %; Platelet Count 164 10*3/uL (140-440); RBC 2.93 10*6/uL (4.10-5.20); RDW 15.2 % (11.5-14.5); WBC 8.67 10*3/uL (4.50-10.00)
[2024-10-14 05:51] LABS: African American GFR (CKD) 60 (>60 ml/min/1.73 sqM); Anion Gap 14 mmol/L; Blood Urea Nitrogen 34 mg/dL (7-17); Calcium 6.9 mg/dL (8.4-10.2); Carbon Dioxide 28 mmol/L (22-30); Chloride 103 mmol/L (98-107); Glucose 267 mg/dL (74-99); Non-African American GFR(CKD) 52 (>60 ml/min/1.73 sqM); Potassium 4.1 mmol/L (3.5-5.1); Sodium 145 mmol/L (137-145)
[2024-10-14] MEDS: ASPIRIN 325 MG TAB PO ONE (05:54)
[2024-10-14 06:02] LABS: Glucose,Whole Blood 278 mg/dL (70-110)
[2024-10-14] MEDS ORDERED: HEPARIN SODIUM,PORCINE 10,000 UNIT in SODIUM CHLORIDE 0.9% 1,000 ML IRRIGATION PRN (07:00)
[2024-10-14] MEDS ORDERED: HEPARIN SODIUM,PORCINE (1 ML) 2,500 UNIT in SODIUM CHLORIDE 0.9% 250 ML IRRIGATION PRN (07:00)
--- NOTE | 2024-10-14 10:52 | P.PN ---
Subjective Patient is seen for follow-up for acute kidney injury. Renal function has improved with serum creatinine down to 1.0 mg/dL. Urine output about 30 - 60 cc an hour. Objective - Vital Signs Vital signs: Vital Signs Temp 97.7 F 10/14/24 08:00 Pulse 62 10/14/24 09:00 Resp 23 10/14/24 09:00 BP 112/62 10/14/24 09:00 Pulse Ox 97 10/14/24 09:00 FiO2 35 10/13/24 19:00 Intake & Output 10/13/24 10/14/24 10/14/24 18:59 06:59 18:59 Intake Total 1338.763 630 20 Output Total 390 440 60 Balance 948.763 190 -40 Weight 84 kg Intake: IV 700 630 20 0.9 KVO 150 130 20 Sodium Chloride 0.9% 1, 550 500 000 ml @ 50 mls/hr IV . Q20H [facility] Rx#:[id number] Intake, IV Titration 158.763 Amount Ertapenem 0.5 gm In 50 Sodium Chloride 0.9% 50 ml @ 100 mls/hr IVPB DAILY [facility] Rx#:[id number] Heparin Sod,Pork in 0.45% 97.515 NaCl 25,000 unit In 0.45 % NaCl 1 250ml.bag @ 12 UNITS/KG/HR 9.9 mls/hr IV .Q24H [facility] Rx#:[id number] Insulin Regular 100 unit 11.248 In Sodium Chloride 0.9% 100 ml @ Titrate IV .Q0M [facility] Rx#:[id number] Oral 480 Output: Urine 390 440 60 Other: Voiding Method Indwelling Catheter Indwelling Catheter Indwelling Catheter # Bowel Movements 2 ABP, PAP, CO, CI - Last Documented Arterial Blood Pressure 146/59 - Exam Patient is awake, comfortable, no acute distress. Examination of the heart S1 and S2 Examination of the lungs bilateral breath sounds are heard Abdomen is soft obese Examination of lower extremities shows trace edema PERFORMANCE TEST CONSULTANT exam shows patient is moving all 4 extremities. - Labs CBC & Chem 7: 10/14/24 04:48 10/14/24 04:48 Labs: Abnormal Lab Results - Last 24 Hours (Table) 10/13/24 10/13/24 10/13/24 Range/Units 05:30 12:04 14:47 WBC 10.04 H (4.50-10.00) 10*3/uL RBC 2.87 L (4.10-5.20) 10*6/uL Hgb 8.7 L (12.0-15.0) g/dL Hct 27.9 L (37.2-46.3) % MCV 97.2 H (80.0-97.0) fL MCHC 31.2 L (32.0-37.0) g/dL Immature Gran # (0.00-0.04) 10*3/uL Lymphocytes # (0.90-5.00) 10*3/uL Eosinophils # (0.04-0.35) 10*3/uL APTT 37.7 H (22.0-30.0) sec BUN (7-17) mg/dL Creatinine (0.52-1.04) mg/dL Glucose (74-99) mg/dL POC Glucose (mg/dL) 214 H (70-110) mg/dL Calcium (8.4-10.2) mg/dL 10/13/24 10/13/24 10/13/24 Range/Units 17:55 20:18 23:04 WBC (4.50-10.00) 10*3/uL RBC (4.10-5.20) 10*6/uL Hgb (12.0-15.0) g/dL Hct (37.2-46.3) % MCV (80.0-97.0) fL MCHC (32.0-37.0) g/dL Immature Gran # (0.00-0.04) 10*3/uL Lymphocytes # (0.90-5.00) 10*3/uL Eosinophils # (0.04-0.35) 10*3/uL APTT 48.4 H (22.0-30.0) sec BUN (7-17) mg/dL Creatinine (0.52-1.04) mg/dL Glucose (74-99) mg/dL POC Glucose (mg/dL) 238 H 241 H (70-110) mg/dL Calcium (8.4-10.2) mg/dL 10/14/24 10/14/24 10/14/24 Range/Units 04:48 04:48 04:48 WBC (4.50-10.00) 10*3/uL RBC 2.93 L (4.10-5.20) 10*6/uL Hgb 8.8 L (12.0-15.0) g/dL Hct 28.5 L (37.2-46.3) % MCV 97.3 H (80.0-97.0) fL MCHC 30.9 L (32.0-37.0) g/dL Immature Gran # 0.07 H (0.00-0.04) 10*3/uL Lymphocytes # 0.52 L (0.90-5.00) 10*3/uL Eosinophils # 0.00 L (0.04-0.35) 10*3/uL APTT 40.0 H (22.0-30.0) sec BUN 34 H (7-17) mg/dL Creatinine 1.06 H (0.52-1.04) mg/dL Glucose 267 H (74-99) mg/dL POC Glucose (mg/dL) (70-110) mg/dL Calcium 6.9 L (8.4-10.2) mg/dL 10/14/24 Range/Units 06:00 WBC (4.50-10.00) 10*3/uL RBC (4.10-5.20) 10*6/uL Hgb (12.0-15.0) g/dL Hct (37.2-46.3) % MCV (80.0-97.0) fL MCHC (32.0-37.0) g/dL Immature Gran # (0.00-0.04) 10*3/uL Lymphocytes # (0.90-5.00) 10*3/uL Eosinophils # (0.04-0.35) 10*3/uL APTT (22.0-30.0) sec BUN (7-17) mg/dL Creatinine (0.52-1.04) mg/dL Glucose (74-99) mg/dL POC Glucose (mg/dL) 278 H (70-110) mg/dL Calcium (8.4-10.2) mg/dL Microbiology - Last 24 Hours (Table) 10/10/24 18:50 Urine Culture - Final Urine,Clean Catch Klebsiella pneumoniae 10/11/24 00:15 Blood Culture - Preliminary Blood Assessment and Plan Assessment: 1. Acute kidney injury secondary to ATN secondary to hypovolemia, shock. C reatinine 4.2 on admission and is 1.0 today. Baseline creatinine near 0.9. No hydronephrosis noted on imaging. 2. Metabolic acidosis secondary to acute kidney injury and GI losses. 3. Hyperkalemia secondary to acute kidney injury, acidosis, lisinopril/Aldactone. Better. 4. Septic shock secondary to UTI. 5. History of adrenal sufficiency maintained on Solu-Cortef. Plan: Continue normal saline. Scheduled for cardiac catheterization today Repeat labs in a.m.
[2024-10-14 11:01] LABS: Glucose,Whole Blood 196 mg/dL (70-110)
--- NOTE | 2024-10-14 11:11 | CA ---
Transthoracic Echo Report Name: Melissa Pena Age: 74 Gender: F : 1950 Exam Date: 10/14/2024 08:39 Exam Location: [place] [facility] Ht (in): 60 Wt (lb): 161 Ordering Physician: Chris Massey MD ([id number]) Attending/Referring Phys: Land Developer Ginger Henriquez RDCS Procedure CPT: Indications: NSTEMI, ischemic cardiomyopathy Cardiac Hx: Technical Quality: Technically difficult study Contrast 1: Definity Total Dose (mL): 2 Contrast 2: Total Dose (mL): MEASUREMENTS (Male / Female) Normal Values DOPPLER TR Peak Velocity 258.5 cm/s TR Peak Gradient 26.7 mmHg Right Ventricular Systolic Press 31.7 mmHg FINDINGS Left Ventricle Left ventricular ejection fraction is estimated at 55-60 %. Right Ventricle Right ventricular systolic pressure within normal limits. Right Atrium Left Atrium Mitral Valve Aortic Valve Tricuspid Valve [id number] tricuspid regurgitation. Pulmonic Valve Pericardium No pericardial effusion. Aorta CONCLUSIONS Left ventricular ejection fraction 55 to 60% RVSP 31 Mild to moderate tricuspid regurgitation No pericardial effusion Previewed by: Dr. Martinez Cole DO (Electronically Signed) Final Date: 14 October 2024 11:11
--- NOTE | 2024-10-14 11:21 | P.PN ---
Subjective Progress Note Date: 10/14/24 Principal diagnosis: Hospital course: Patient is a 74-year-old female with past medical history of CAD hypertension dyslipidemia type 2 diabetes obstructive sleep apnea, atrial insufficiency, thoracic aortic aneurysm, paroxysmal atrial fibrillation known to Dr. Sharma. She was last hospitalized in July 2024 with urinary tract infection found to have Klebsiella pneumonia. This time she presented to the hospital because of concerns of UTI. On admission she had evidence of septic shock with gram- negative bacteremia along with evidence of MARIO with creatinine of 4.3 along with elevated troponin of 1.5 without oriented pattern. She also had anion gap metabolic acidosis with bicarb of 6. Currently she is being managed in ICU for shock state. She was previously managed on IV pressors. With fluid resuscitation and antibiotics her hemodynamics has improved and she has been weaned off pressors. Currently she is borderline hypertensive. This morning she was complaining of some substernal chest heaviness for which cardiology was consulted. EKG shows sinus rhythm with ST depressions in lateral leads with elevations in V1 and aVR. Prior cardiac testing: Cardiac catheterization 2018 showed intermediate disease involving proximal LAD with 60% disease and aneurysm formation Echo from August 2022 shows an EF of 60%, moderate MR, mild AR Yesterday while being on IV heparin drip and IV nitro drip she complained of some blurry vision and some headache. For this nitroglycerin and heparin drip was discontinued and we did a CT head which did not show any evidence of intracranial hemorrhage or any acute intracranial process. And heparin drip was resumed but kept her IV nitroglycerin off because of headache. 10/14/24: Patient seen and examined at bedside today. She continues to be in the ICU. No new complaints today. Pulse 62 bpm, BP 112/62 WBC 8.67, hemoglobin 8.8, APTT 40, sodium 145, potassium 4.1, BUN 34, creatinine 1.06 Echocardiogram obtained today shows EF 55 to 60%, RVSP 31, mild to moderate tr icuspid regurgitation Review of systems: Pertinent positives and negatives as discussed in HPI, a complete review of systems was performed and all other systems are negative. Physical examination: Vital signs reviewed GENERAL: This is a 74-year-old obese female, not in acute distress HEENT: Head is atraumatic, normocephalic. NECK: Supple, no JVD LUNGS: mild crackles audible in bilateral lung hinds HEART: S1-S2 audible ABDOMEN: Soft, nontender EXTREMITIES: No edema Neuro: Alert, oritented, no focal deficits. Detailed neuro exam was not performed. Assessment: Gram-negative septicemia with UTI Septic shock Anion gap metabolic acidosis MARIO, resolving Elevated troponin in setting of MARIO and hypoxic respiratory failure, multifactorial, likely type II NSTEMI Prior history of CAD with intermediate 60% disease in proximal LAD from 2019 History of paroxysmal atrial fibrillation History of renal insufficiency Obstructive sleep apnea Obesity Plan: Recommend neurology consult for blurry vision evaluation. Seems like blurry vision is chronic and could be related to her glaucoma. Continue IV heparin Continue metoprolol 50 twice daily Continue aspirin 81, amlodipine 10, lipitor Monitor hemoglobin levels, kidney function and urine output. Scheduled for cardiac catheterization today Prognosis guarded Dictation was produced using m2fx dictation software. please excuse any grammatical, word or spelling errors. Servando Lechuga MD PGY-1 IM Objective - Vital Signs Vital signs: Vital Signs Temp 97.7 F 10/14/24 08:00 Pulse 62 10/14/24 09:00 Resp 23 10/14/24 09:00 BP 112/62 10/14/24 09:00 Pulse Ox 97 10/14/24 09:00 FiO2 35 10/13/24 19:00 Intake & Output 10/13/24 10/14/24 10/14/24 18:59 06:59 18:59 Intake Total 1338.763 630 229.44 Output Total 390 440 60 Balance 948.763 190 169.44 Weight 84 kg Intake: IV 700 630 20 0.9 KVO 150 130 20 Sodium Chloride 0.9% 1, 550 500 000 ml @ 50 mls/hr IV . Q20H [facility] Rx#:[id number] Intake, IV Titration 158.763 209.44 Amount Ertapenem 0.5 gm In 50 Sodium Chloride 0.9% 50 ml @ 100 mls/hr IVPB DAILY [facility] Rx#:[id number] Heparin Sod,Pork in 0.45% 97.515 209.44 NaCl 25,000 unit In 0.45 % NaCl 1 250ml.bag @ 12 UNITS/KG/HR 9.9 mls/hr IV .Q24H [facility] Rx#:[id number] Insulin Regular 100 unit 11.248 In Sodium Chloride 0.9% 100 ml @ Titrate IV .Q0M [facility] Rx#:[id number] Oral 480 Output: Urine 390 440 60 Other: Voiding Method Indwelling Catheter Indwelling Catheter Indwelling Catheter # Bowel Movements 2 ABP, PAP, CO, CI - Last Documented Arterial Blood Pressure 146/59 - Labs CBC & Chem 7: 10/14/24 04:48 10/14/24 04:48 Labs: Abnormal Lab Results - Last 24 Hours (Table) 10/13/24 10/13/24 10/13/24 Range/Units 05:30 12:04 14:47 WBC 10.04 H (4.50-10.00) 10*3/uL RBC 2.87 L (4.10-5.20) 10*6/uL Hgb 8.7 L (12.0-15.0) g/dL Hct 27.9 L (37.2-46.3) % MCV 97.2 H (80.0-97.0) fL MCHC 31.2 L (32.0-37.0) g/dL Immature Gran # (0.00-0.04) 10*3/uL Lymphocytes # (0.90-5.00) 10*3/uL Eosinophils # (0.04-0.35) 10*3/uL APTT 37.7 H (22.0-30.0) sec BUN (7-17) mg/dL Creatinine (0.52-1.04) mg/dL Glucose (74-99) mg/dL POC Glucose (mg/dL) 214 H (70-110) mg/dL Calcium (8.4-10.2) mg/dL 10/13/24 10/13/24 10/13/24 Range/Units 17:55 20:18 23:04 WBC (4.50-10.00) 10*3/uL RBC (4.10-5.20) 10*6/uL Hgb (12.0-15.0) g/dL Hct (37.2-46.3) % MCV (80.0-97.0) fL MCHC (32.0-37.0) g/dL Immature Gran # (0.00-0.04) 10*3/uL Lymphocytes # (0.90-5.00) 10*3/uL Eosinophils # (0.04-0.35) 10*3/uL APTT 48.4 H (22.0-30.0) sec BUN (7-17) mg/dL Creatinine (0.52-1.04) mg/dL Glucose (74-99) mg/dL POC Glucose (mg/dL) 238 H 241 H (70-110) mg/dL Calcium (8.4-10.2) mg/dL 10/14/24 10/14/24 10/14/24 Range/Units 04:48 04:48 04:48 WBC (4.50-10.00) 10*3/uL RBC 2.93 L (4.10-5.20) 10*6/uL Hgb 8.8 L (12.0-15.0) g/dL Hct 28.5 L (37.2-46.3) % MCV 97.3 H (80.0-97.0) fL MCHC 30.9 L (32.0-37.0) g/dL Immature Gran # 0.07 H (0.00-0.04) 10*3/uL Lymphocytes # 0.52 L (0.90-5.00) 10*3/uL Eosinophils # 0.00 L (0.04-0.35) 10*3/uL APTT 40.0 H (22.0-30.0) sec BUN 34 H (7-17) mg/dL Creatinine 1.06 H (0.52-1.04) mg/dL Glucose 267 H (74-99) mg/dL POC Glucose (mg/dL) (70-110) mg/dL Calcium 6.9 L (8.4-10.2) mg/dL 10/14/24 10/14/24 Range/Units 06:00 10:59 WBC (4.50-10.00) 10*3/uL RBC (4.10-5.20) 10*6/uL Hgb (12.0-15.0) g/dL Hct (37.2-46.3) % MCV (80.0-97.0) fL MCHC (32.0-37.0) g/dL Immature Gran # (0.00-0.04) 10*3/uL Lymphocytes # (0.90-5.00) 10*3/uL Eosinophils # (0.04-0.35) 10*3/uL APTT (22.0-30.0) sec BUN (7-17) mg/dL Creatinine (0.52-1.04) mg/dL Glucose (74-99) mg/dL POC Glucose (mg/dL) 278 H 196 H (70-110) mg/dL Calcium (8.4-10.2) mg/dL Microbiology - Last 24 Hours (Table) 10/10/24 18:50 Urine Culture - Final Urine,Clean Catch Klebsiella pneumoniae 10/11/24 00:15 Blood Culture - Preliminary Blood
[2024-10-14] MEDS: IV FLUID CONTINUATION 700 ML IV ONE (12:30)
[2024-10-14] MEDS: LIDOCAINE 1% INJ 10MG/ML (20 ML MDV) SQ ONE (12:48)
[2024-10-14] MEDS: MIDAZOLAM 2 MG/2 ML VIAL IVP ONE (12:50)
[2024-10-14] MEDS: HEPARIN SODIUM,PORCINE (1 ML) 2,500 UNIT in SODIUM CHLORIDE 0.9% 250 ML IRRIGATION ONE (12:57)
[2024-10-14] MEDS: HEPARIN SODIUM,PORCINE 10,000 UNIT in SODIUM CHLORIDE 0.9% 1,000 ML IRRIGATION ONE (12:57)
[2024-10-14] MEDS: HEPARIN SODIUM 1,000 UN/ML (10ML VL) IVP ONE (13:11)
[2024-10-14] MEDS: IOPAMIDOL-370 100ML BTL INJ ONE (13:16)
[2024-10-14] MEDS ORDERED: RX INFO: IV CONTRAST WAS GIVEN 1 EACH MISC MISCELLANE PRN (13:21)
--- NOTE | 2024-10-14 13:28 | P.PCN ---
Date of Procedure: 10/14/24 Operative Findings: CARDIAC CATHETERIZATION PERFORMING PHYSICIAN: Warren Rosenberg MD, RPVI PROCEDURE PERFORMED: 1. Selective left and nonselective right coronary angiogram 2. Left heart catheterization and IFR of the LAD and ramus intermedius 3. Ultrasound-guided access of the right common femoral artery and selective right common femoral artery angiogram INDICATION: Acute non-STEMI COMPLICATION: None APPROACH: Right common femoral artery LEVEL OF SEDATION: Moderate with sedation in length of 30 minutes PROCEDURE DESCRIPTION: After obtaining an informed consent, the patient was brought to cardiac labor operator. Local anesthesia was performed using lidocaine subcutaneously. The right common femoral artery was cannulated using Seldinger technique, under ultrasound guidance, the guidewire passed easily, following that we advanced a 6 Nepali sheath dilator assembly, the wire and dilator were removed and sheath was flushed. Selective left coronary angiogram and nonselective right coronary angiogram was performed using JL 4 and JR4 catheter. Left heart catheterization was performed using the JR4 catheter with after that we decided to do an IFR of the LAD. After zeroing the Dobler wire and equalized in between the Dobler wire and guiding catheter which was JL 4 guiding catheter the left main was engaged and the LAD was wired with IFR came to be at 0.84 and subsequently the wire was advanced to the ramus intermedius with IFR came to be 0.92. Selective right common femoral artery angiogram was performed. The procedure was completed there was no complication. 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 HEMODYNAMICS: LVEDP was about 20 mmHg with no significant gradient across aortic valve CONCLUSION: 1. 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 Intermediate disease documented to be nonflow-limiting involving the ramus intermedius 3. Elevated left-sided filling pressure POSTPROCEDURE MANAGEMENT: Consider staged PCI of the LAD giving that we reached the max amount of contrast
[2024-10-14] MEDS: SODIUM CHLORIDE 0.9% 1,000 ML IV SCH (13:30)
--- NOTE | 2024-10-14 14:30 | P.PN ---
Subjective Progress Note Date: 10/14/24 Principal diagnosis: Acute urinary tract infection with sepsis and septic shock secondary to Klebsiella pneumonia Patient is a 74-year-old female with past medical history significant for hypertension, hyperlipidemia, diabetes mellitus, atrial fibrillation anticoagulated on Eliquis, obstructive sleep apnea with home CPAP, COPD, adrenal insufficiency, and recurrent urinary tract infections. Of note, patient had a recent hospitalization July, for urinary tract infection. Urine culture was remarkable for Klebsiella pneumonia at that time. No further treatment with antibiotics following her hospitalization in July. Presents the emergency department history evening with concerns of UTI. She was also noted to be hypotensive and tachycardic. With elevated WBC count. Workup in the emergency department including CT of the abdomen and pelvis which did not show any suspicious bowel obstructions or ileus. Bilateral renal cysts were noted. No stones or hydronephrosis. Found to be in acute kidney injury/failure. Creatinine 4.23. Urinalysis remarkable for pyuria and bacteriuria. Urine culture was sent. Potassium was critically elevated at 6.5. This was treated in the ED with a combination of insulin 10 units regular, D50 W amp, 1 g calcium gluconate, concentrated albuterol treatment, as well as 5 g of Lokelma. EKG reviewed, sinus rhythm, rate 94 bpm, no QRS widening or peaked T waves. Nonspecific mild ST depressions. She does take lisinopril, Aldactone, as well as, potassium supplements at home. Remaining blood work remarkable for a CBC with a WBC count of 15.7, hemoglobin 12.7, platelets 299. CMP: Sodium 135, potassium 6.5, chloride 105, serum bicarb 10, anion gap 20, BUN 47, creatinine 4.23, glucose 151. Lactic 1.6. LFTs not elevated. Troponin 1.51, probably related to poor renal clearance. Patient is currently being evaluated in the intensive care unit. She is alert and oriented. States over the last week she has had burning with urination accompanied with urinary frequency and right flank pain. Denies any hematuria. No documented fevers but has been chilled. She has been eating and drinking without issue up until 24 to 48 hours prior to ER presentation where she developed some nausea and vomiting with with eating and drinking. Denies hematochezia, melanotic stools, hematemesis. Denies abdominal pain. Mucous membranes appear dry. Blood pressures improved with fluid resuscitation. She has been fluid resuscitated with a total of 2 L normal saline in the ED and continues on normal saline at 130 mL/h. Heart rate is tachycardic. Not requiring any vasopressors at the moment. Empirically covered with Levaquin in the ED. She has multiple medication/antibiotic allergies. Repeat labs are pending. On 10/12/2024, the patient is being seen for a follow-up. The patient is currently off pressors. Hemodynamically stable. Vasopressin has been discontinued. Norepinephrine has been discontinued. Patient remains on a bicarb infusion at rate of 100 cc an hour. Fluid balance is +5.3 L negative patient remains on 3 Suboxone by nasal cannula. The patient's urine culture is showing gram-negative bacillus and the blood culture still pending. The patient remains on IV Invanz. The patient is also on stress dose hydrocortisone. The bicarb infusion will be discontinued the patient will be switched to a normal saline rate of 50 cc an hour. No other significant events overnight. She is awake and alert. Aspirin, Wellbutrin and BuSpar to be resumed. Blood sugars under better control for now. Renal function continues to improve and today's blood work shows a creatinine of 1.8 with a BUN of 37. Sodium is at 140 with a potassium level of 4. Serum bicarb is at 30,. White cell count 11, hemoglobin 9.2 and platelet count of 200. On today's evaluation of 10/13/2024, the patient is awake and alert and the patient is communicating. No hypotension. No pressors. No altered mentation. No chest pain. No pleurisy. No hemoptysis. Urine output is adequate. The patient is afebrile. Hemodynamically stable. Meanwhile, the patient's urine culture is positive for Klebsiella pneumonia and the patient remains on IV Invanz and the choice of antibiotics was made based on her extensive allergies. The white cell count is currently down to 10.04 with a hemoglobin of 8.7 and a platelet count of 185. Sodium is 141, creatinine continues to improve and is down to 1.26 with a BUN of 35. Potassium is at 3.8. Bicarb level is at 28. The patient remains on an insulin drip and she is known to have diabetes mellitus maintained on insulin pump on an outpatient basis. I am going to transition this patient to long-acting insulin with Lantus. The patient is also on stress dose hydrocortisone. This was given to her due to her underlying chronic adrenal sufficiency Seen today on 10/14/2024, patient remains in the ICU as an overflow, she is on 5 L nasal cannula, does not seem to be in distress, remains on Solu-Cortef she is also on Invanz and on Eliquis. Patient is being treated for Klebsiella pneumonia UTI and sepsis, she is hemodynamically stable today, not requiring any pressors, patient underwent cardiac catheterization today, she was found to have severe flow-limiting disease in the LAD and there was intermediate disease documented to be nonflow limiting involving the ramus intermedius and she was noted to have elevated left-sided filling pressures. Cardiology is planning staged PCI of the LAD given the fact that she reached her maximum amount of contrast. Patient does not seem to be in any distress WBC count is 8.6 hemoglobin 8.8 PTT is 49.8 electrolytes are normal BUN is 34 creatinine 1.06 Objective - Vital Signs Vital signs: Vital Signs Temp 97.9 F 10/14/24 12:00 Pulse 63 10/14/24 12:00 Resp 9 L 10/14/24 12:00 BP 124/71 10/14/24 12:00 Pulse Ox 99 10/14/24 12:00 FiO2 35 10/13/24 19:00 Intake & Output 10/13/24 10/14/24 10/14/24 18:59 06:59 18:59 Intake Total 1338.763 630 678.94 Output Total 390 440 160 Balance 948.763 190 518.94 Weight 84 kg Intake: IV 700 630 469.5 0.9 KVO 150 130 20 Sodium Chloride 0.9% 1, 550 500 000 ml @ 50 mls/hr IV . Q20H [facility] Rx#:[id number] Sodium Chloride 0.9% 1, 247.5 000 ml In Empty Bag 1 bag @ 1 ML/KG/HR 82.5 mls/hr IV .Q12H8M [facility] Rx#: [id number] Intake, IV Titration 158.763 209.44 Amount Ertapenem 0.5 gm In 50 Sodium Chloride 0.9% 50 ml @ 100 mls/hr IVPB DAILY [facility] Rx#:[id number] Heparin Sod,Pork in 0.45% 97.515 209.44 NaCl 25,000 unit In 0.45 % NaCl 1 250ml.bag @ 12 UNITS/KG/HR 9.9 mls/hr IV .Q24H [facility] Rx#:[id number] Insulin Regular 100 unit 11.248 In Sodium Chloride 0.9% 100 ml @ Titrate IV .Q0M [facility] Rx#:[id number] Oral 480 Output: Urine 390 440 160 Other: Voiding Method Indwelling Catheter Indwelling Catheter Indwelling Catheter # Bowel Movements 2 ABP, PAP, CO, CI - Last Documented Arterial Blood Pressure 146/59 - Exam GENERAL: Revealed 74-year-old female in no distress, is at bedside. HEENT: Head is atraumatic, normocephalic. NECK: Supple, no JVD LUNGS: Fine crackles at the bases no rhonchi no wheezes HEART: S1-S2 audible 2/6 systolic murmur throughout the precordium ABDOMEN: Soft, nontender, no megaly no rebound no guarding EXTREMITIES: No edema, no clubbing, no cyanosis. Neuro: Alert oriented x 3 no gross focal neurologic deficit Psychiatric: Normal mood affect and no mental status examination Skin: No rashes - Labs CBC & Chem 7: 10/14/24 04:48 10/14/24 04:48 Labs: Abnormal Lab Results - Last 24 Hours (Table) 10/13/24 10/13/24 10/13/24 Range/Units 14:47 17:55 20:18 RBC (4.10-5.20) 10*6/uL Hgb (12.0-15.0) g/dL Hct (37.2-46.3) % MCV (80.0-97.0) fL MCHC (32.0-37.0) g/dL Immature Gran # (0.00-0.04) 10*3/uL Lymphocytes # (0.90-5.00) 10*3/uL Eosinophils # (0.04-0.35) 10*3/uL APTT 37.7 H (22.0-30.0) sec BUN (7-17) mg/dL Creatinine (0.52-1.04) mg/dL Glucose (74-99) mg/dL POC Glucose (mg/dL) 238 H 241 H (70-110) mg/dL Calcium (8.4-10.2) mg/dL 10/13/24 10/14/24 10/14/24 Range/Units 23:04 04:48 04:48 RBC 2.93 L (4.10-5.20) 10*6/uL Hgb 8.8 L (12.0-15.0) g/dL Hct 28.5 L (37.2-46.3) % MCV 97.3 H (80.0-97.0) fL MCHC 30.9 L (32.0-37.0) g/dL Immature Gran # 0.07 H (0.00-0.04) 10*3/uL Lymphocytes # 0.52 L (0.90-5.00) 10*3/uL Eosinophils # 0.00 L (0.04-0.35) 10*3/uL APTT 48.4 H (22.0-30.0) sec BUN 34 H (7-17) mg/dL Creatinine 1.06 H (0.52-1.04) mg/dL Glucose 267 H (74-99) mg/dL POC Glucose (mg/dL) (70-110) mg/dL Calcium 6.9 L (8.4-10.2) mg/dL 10/14/24 10/14/24 10/14/24 Range/Units 04:48 06:00 10:59 RBC (4.10-5.20) 10*6/uL Hgb (12.0-15.0) g/dL Hct (37.2-46.3) % MCV (80.0-97.0) fL MCHC (32.0-37.0) g/dL Immature Gran # (0.00-0.04) 10*3/uL Lymphocytes # (0.90-5.00) 10*3/uL Eosinophils # (0.04-0.35) 10*3/uL APTT 40.0 H (22.0-30.0) sec BUN (7-17) mg/dL Creatinine (0.52-1.04) mg/dL Glucose (74-99) mg/dL POC Glucose (mg/dL) 278 H 196 H (70-110) mg/dL Calcium (8.4-10.2) mg/dL 10/14/24 Range/Units 11:30 RBC (4.10-5.20) 10*6/uL Hgb (12.0-15.0) g/dL Hct (37.2-46.3) % MCV (80.0-97.0) fL MCHC (32.0-37.0) g/dL Immature Gran # (0.00-0.04) 10*3/uL Lymphocytes # (0.90-5.00) 10*3/uL Eosinophils # (0.04-0.35) 10*3/uL APTT 49.8 H (22.0-30.0) sec BUN (7-17) mg/dL Creatinine (0.52-1.04) mg/dL Glucose (74-99) mg/dL POC Glucose (mg/dL) (70-110) mg/dL Calcium (8.4-10.2) mg/dL Microbiology - Last 24 Hours (Table) 10/11/24 00:15 Blood Culture - Preliminary Blood 10/10/24 18:50 Urine Culture - Final Urine,Clean Catch Klebsiella pneumoniae Assessment and Plan Assessment: Impression: Acute urinary tract infection secondary to Klebsiella pneumoniae with sepsis and septic shock Acute anion gap metabolic acidosis, resolved secondary to sepsis Acute kidney injury/acute tubular necrosis secondary to sepsis and septic shock Significant coronary artery disease as noted on cardiac catheterization today patient has been known to have previous history of LAD disease from 2019 Obstructive sleep apnea syndrome History of adrenal insufficiency History of obstructive sleep apnea syndrome, patient has her own CPAP at bedside Obesity Dyslipidemia Benign essential hypertension History of paroxysmal atrial fibrillation Recommendation: Continue present supportive care measures Consider transfer to cardiac floor with monitor Continue antibiotics Continue hydrocortisone eventually to go back on her usual dose of hydrocortisone patient was given stress doses on her initial presentation Continue CPAP, patient has her own Continue BuSpar and Wellbutrin Continue Invanz/antibiotics Will continue to Time with Patient: Less than 30
[2024-10-14 16:09] LABS: Glucose,Whole Blood 145 mg/dL (70-110)
[2024-10-14 20:18] LABS: Glucose,Whole Blood 215 mg/dL (70-110)
[2024-10-14 20:27] LABS: C Reactive Protein 18.4 mg/dL (<1.0)
--- NOTE | 2024-10-14 21:19 | US ---
EXAMINATION TYPE: US carotid duplex BILAT DATE OF EXAM: 10/14/2024 COMPARISON: 2019 CLINICAL INDICATION: Female, 74 years old with history of Blurred vision; blurred vision since today Additional History: .... TECHNIQUE: Grayscale, color Doppler and spectral Doppler evaluation of the bilateral carotid systems and vertebral arteries. Indirect Doppler criteria was utilized. FINDINGS: EXAM MEASUREMENTS: RIGHT: Peak Systolic Velocity (PSV) cm/sec ----- Right CCA: 42.6 ----- Right ICA: 133.8 ----- Right ECA: 90.4 ICA/CCA ratio: 3.1 RIGHT: End Diastole cm/sec ----- Right CCA: 14.1 ----- Right ICA: 13.6 ----- Right ECA: 7.7 LEFT: Peak Systolic Velocity (PSV) cm/sec ----- Left CCA: 56.5 ----- Left ICA: 91.9 ----- Left ECA: 95.1 ICA/CCA ratio: 1.6 LEFT: End Diastole cm/sec ----- Left CCA: 17.5 ----- Left ICA: 32.1 ----- Left ECA: 9.5 VERTEBRALS (direction of flow): Right Vertebral: Antegrade Left Vertebral: Antegrade Rhythm: Normal ONION TIER NOTES: slight limitations due to tortuosity of vessels and also breathing motion. plaque seen within bilateral bifurcations. slightly elevated velocity seen within the right proximal ICA Color Doppler imaging shows patency with blood flow throughout the carotid artery. Spectral waveforms are within normal limits. IMPRESSION: Right: 50-69% stenosis of the carotid bifurcation. Left: Less than 50% stenosis of the carotid bifurcation. Criteria for Assigning % of Stenosis / Diameter reduction (Estimation based on the indirect measurements of the internal carotid artery velocities (ICA PSV). 1. Normal (no stenosis)=ICA PSV < 180 cm/s: ratio < 2.0: ICA EDV<40 cm/s. 2. Less than 50% stenosis=ICA PSV < 180 cm/s: ratio < 2.0: ICA EDV<40 cm/s. 3. 50 to 69% stenosis=ICA PSV of 180 to 230 cm/s: ration 2.0 ? 4.0: ICA EDV 40-100 cm/s. PSV 125-180 cm/sec and ICA/CCA PSV Ratio ? 2.0 is also consistent with 50-69% stenosis 4. Greater than 70% stenosis to near occlusion= ICA PSV > 230 cm/s: ratio > 4.0: ICA EDV > 100 cm/s. 5. Near occlusion= ICA PSV velocities may be low or undetectable: variable ratio and ICA EDV. 6. Total occlusion=unable to detect flow. [facility], , 10/14/2024 9:17 PM
[2024-10-15 06:17] LABS: Glucose,Whole Blood 160 mg/dL (70-110)
--- NOTE | 2024-10-15 06:21 | P.PN ---
Subjective Progress Note Date: 10/14/24 74-year-old female with multiple comorbidities states she has had 1 day of nausea vomiting abdominal pain. Patient is a poor historian states that she has had multiple bouts of emesis that appears to be bilious. She states that she is nauseated. Denies any fever chills or night sweats. States that her chronic back pain feels worse. Blood work completed in ED reveals a WBC of 15.7, hemoglobin of 12.7 and platelet count of 299, sodium of 135, potassium 6.5, BUN/creatinine of 47/4.23, blood glucose of 174, troponin elevated at 1.510 UA reveals large number of leukocyte esterase, WBCs and bacteria EKG reviewed, sinus rhythm, rate 94 bpm, no QRS widening or peaked T waves. Nonspecific mild ST depressions. Hyperkalemia was treated in the ED with a combination of insulin 10 units regular, D50 W amp, 1 g calcium gluconate, concentrated albuterol treatment, as well as 5 g of Lokelma. Patient is admitted to ICU for hypotension likely related to septic shock and is on Levophed 10/13/2024 -- the patient is seen and evaluated in room at bedside; remains in ICU as PCU overflow; patient is more awake and alert and the patient is communicating. -- The patient is afebrile. Hemodynamically stable. -- urine culture is positive for Klebsiella pneumonia and the patient remains on IV Invanz and the choice of antibiotics was made based on her extensive allergies. - white cell count is currently down to 10.04 with a hemoglobin of 8.7 and a platelet count of 185. Sodium is 141, creatinine continues to improve and is down to 1.26 with a BUN of 35. Potassium is at 3.8. Bicarb level is at 28. - patient remains on an insulin drip and she is known to have diabetes mellitus maintained on insulin pump on an outpatient basis. Plan is to to transition this patient to long-acting insulin with Lantus. The patient is also on stress dose hydrocortisone. This was given to her due to her underlying chronic adrenal sufficiency 10/14/2024 Patient is seen in follow-up in the ICU being followed by multiple consultations including cardiology and is currently at cardiac catheterization official report. Patient is continued on antibiotics for urinary tract infection with Klebsiella in the form of Invanz at this time. Will follow-up on repeat labs in a.m. Review of systems: Constitutional: No reports of fatigue, fever, or chills Cardiovascular: No reports of chest pain or palpitations Respiratory: No reports of shortness of breath or cough GI: No reports of nausea, vomiting, or diarrhea : No reports of dysuria or retention Neurovascular: reports of generalized weakness All medications have been reviewed Physical exam: Gen: This is a 74-year-old female who is awake, alert and oriented x 2, well- developed, ill-appearing, obese, elderly appearing HEENT: Head is atraumatic, normocephalic. Pupils equal, round. Sclerae is anicteric. NECK: Supple. No JVD. No lymphadenopathy. No thyromegaly. LUNGS: Diminished breath sounds bilaterally with no wheezes or rhonchi. No intercostal retractions. HEART: S1, S2 are muffled ABDOMEN: Soft. Obese bowel sounds are present. No masses. No tenderness. EXTREMITIES: No pedal edema. No calf tenderness. NEUROLOGICAL: Patient is awake, alert and oriented x 2. Diffusely weak Assessment: 1. UTI/sepsis/septic shock, present on admission, urine culture showing Klebsiella 2. Acute renal failure; likely prerenal azotemia 3. Critical hyperkalemia, improving 4. elevated troponin; likely related to acute renal failure and septic shock; patient does have history of nonobstructive coronary artery disease with undergo cardiac catheterization today 10/14/2024 5. Paroxysmal atrial fibrillation; patient is currently in NSR; anticoagulated with Eliquis 6. Hypertension; antihypertensive medications remain on hold given septic shock; we will resume once patient is improved 7. Hyperlipidemia 8. Adrenal insufficiency; patient is maintained on Solu-Cortef 9. COPD; not in exacerbation; continue with home inhaler therapy 10. Obesity with a BMI 37.9 GI prophylaxis DVT prophylaxis; SCD/Eliquis CODE STATUS; full code Plan: Patient is continued in the ICU although as a 3 S. overflow once a bed becomes available continued on telemetry monitoring consultations following. Cardiology following and patient is scheduled undergo cardiac catheterization today and patient is currently in the [facility]. Will await official report Patient is continued on IV Invanz with Klebsiella in the urine Follow-up on repeat labs Patient remains on Cortef with history of adrenal insufficiency Recommend PT/OT therapy evaluation The impression and plan of care has been dictated by Yecenia Horan, Nurse Practitioner as directed. Dr. Pascale MD I have performed a history and examination and MDM of this patient, discussed the same with the dictator, and agree with the dictator's assessment and plan as written ,documented as a scribe. Based on total visit time, I have performed more than 50% of the visit. Objective - Vital Signs Vital signs: Vital Signs Temp 97.5 F L 10/14/24 04:00 Pulse 64 10/14/24 07:00 Resp 18 10/14/24 07:00 BP 128/73 10/14/24 07:00 Pulse Ox 97 10/14/24 07:00 FiO2 35 10/13/24 19:00 Intake & Output 10/13/24 10/14/24 10/14/24 18:59 06:59 18:59 Intake Total 1338.763 630 Output Total 390 440 Balance 948.763 190 Weight 84 kg Intake: IV 700 630 0.9 KVO 150 130 Sodium Chloride 0.9% 1, 550 500 000 ml @ 50 mls/hr IV . Q20H [facility] Rx#:[id number] Intake, IV Titration 158.763 Amount Ertapenem 0.5 gm In 50 Sodium Chloride 0.9% 50 ml @ 100 mls/hr IVPB DAILY [facility] Rx#:[id number] Heparin Sod,Pork in 0.45% 97.515 NaCl 25,000 unit In 0.45 % NaCl 1 250ml.bag @ 12 UNITS/KG/HR 9.9 mls/hr IV .Q24H [facility] Rx#:[id number] Insulin Regular 100 unit 11.248 In Sodium Chloride 0.9% 100 ml @ Titrate IV .Q0M [facility] Rx#:[id number] Oral 480 Output: Urine 390 440 Other: Voiding Method Indwelling Catheter Indwelling Catheter # Bowel Movements 2 ABP, PAP, CO, CI - Last Documented Arterial Blood Pressure 146/59 - Labs CBC & Chem 7: 10/14/24 04:48 10/14/24 04:48 Labs: Abnormal Lab Results - Last 24 Hours (Table) 10/13/24 10/13/24 10/13/24 Range/Units 05:30 10:12 12:04 WBC 10.04 H (4.50-10.00) 10*3/uL RBC 2.87 L (4.10-5.20) 10*6/uL Hgb 8.7 L (12.0-15.0) g/dL Hct 27.9 L (37.2-46.3) % MCV 97.2 H (80.0-97.0) fL MCHC 31.2 L (32.0-37.0) g/dL Immature Gran # (0.00-0.04) 10*3/uL Lymphocytes # (0.90-5.00) 10*3/uL Eosinophils # (0.04-0.35) 10*3/uL APTT (22.0-30.0) sec BUN (7-17) mg/dL Creatinine (0.52-1.04) mg/dL Glucose (74-99) mg/dL POC Glucose (mg/dL) 170 H 214 H (70-110) mg/dL Calcium (8.4-10.2) mg/dL 10/13/24 10/13/24 10/13/24 Range/Units 14:47 17:55 20:18 WBC (4.50-10.00) 10*3/uL RBC (4.10-5.20) 10*6/uL Hgb (12.0-15.0) g/dL Hct (37.2-46.3) % MCV (80.0-97.0) fL MCHC (32.0-37.0) g/dL Immature Gran # (0.00-0.04) 10*3/uL Lymphocytes # (0.90-5.00) 10*3/uL Eosinophils # (0.04-0.35) 10*3/uL APTT 37.7 H (22.0-30.0) sec BUN (7-17) mg/dL Creatinine (0.52-1.04) mg/dL Glucose (74-99) mg/dL POC Glucose (mg/dL) 238 H 241 H (70-110) mg/dL Calcium (8.4-10.2) mg/dL 10/13/24 10/14/24 10/14/24 Range/Units 23:04 04:48 04:48 WBC (4.50-10.00) 10*3/uL RBC 2.93 L (4.10-5.20) 10*6/uL Hgb 8.8 L (12.0-15.0) g/dL Hct 28.5 L (37.2-46.3) % MCV 97.3 H (80.0-97.0) fL MCHC 30.9 L (32.0-37.0) g/dL Immature Gran # 0.07 H (0.00-0.04) 10*3/uL Lymphocytes # 0.52 L (0.90-5.00) 10*3/uL Eosinophils # 0.00 L (0.04-0.35) 10*3/uL APTT 48.4 H (22.0-30.0) sec BUN 34 H (7-17) mg/dL Creatinine 1.06 H (0.52-1.04) mg/dL Glucose 267 H (74-99) mg/dL POC Glucose (mg/dL) (70-110) mg/dL Calcium 6.9 L (8.4-10.2) mg/dL 10/14/24 10/14/24 Range/Units 04:48 06:00 WBC (4.50-10.00) 10*3/uL RBC (4.10-5.20) 10*6/uL Hgb (12.0-15.0) g/dL Hct (37.2-46.3) % MCV (80.0-97.0) fL MCHC (32.0-37.0) g/dL Immature Gran # (0.00-0.04) 10*3/uL Lymphocytes # (0.90-5.00) 10*3/uL Eosinophils # (0.04-0.35) 10*3/uL APTT 40.0 H (22.0-30.0) sec BUN (7-17) mg/dL Creatinine (0.52-1.04) mg/dL Glucose (74-99) mg/dL POC Glucose (mg/dL) 278 H (70-110) mg/dL Calcium (8.4-10.2) mg/dL Microbiology - Last 24 Hours (Table) 10/10/24 18:50 Urine Culture - Final Urine,Clean Catch Klebsiella pneumoniae 10/11/24 00:15 Blood Culture - Preliminary Blood
[2024-10-15 07:36] LABS: African American GFR (CKD) 77 (>60 ml/min/1.73 sqM); Anion Gap 5 mmol/L; Blood Urea Nitrogen 31 mg/dL (7-17); Calcium 6.9 mg/dL (8.4-10.2); Carbon Dioxide 29 mmol/L (22-30); Chloride 107 mmol/L (98-107); Glucose 149 mg/dL (74-99); Non-African American GFR(CKD) 67 (>60 ml/min/1.73 sqM); Sodium 141 mmol/L (137-145)
[2024-10-15 07:52] LABS: Potassium 4.5 mmol/L (3.5-5.1)
[2024-10-15 07:56] LABS: Basophils # (A) 0.01 10*3/uL (0.00-0.10); Basophils % (A) 0.1 %; HCT 29.9 % (37.2-46.3); HGB 9.3 g/dL (12.0-15.0); Lymphocytes # (A) 0.63 10*3/uL (0.90-5.00); Lymphocytes % (A) 7.9 %; MCH 30.1 pg (27.0-32.0); MCHC 31.1 g/dL (32.0-37.0); MCV 96.8 fL (80.0-97.0); Mean Platelet Volume 10.5 fL (9.5-12.2); Monocytes # (A) 0.52 10*3/uL (0.20-1.00); Monocytes % (A) 6.6 %; Neutrophils # (A) 6.57 10*3/uL (1.80-7.70); Neutrophils % (A) 82.9 %; Platelet Count 170 10*3/uL (140-440); RBC 3.09 10*6/uL (4.10-5.20); WBC 7.93 10*3/uL (4.50-10.00)
--- NOTE | 2024-10-15 08:19 | P.CNNES ---
History of Present Illness Consult date: 10/14/24 Requesting physician: Chris Massey Reason for Consult: Blurry vision, rule out cva History of Present Illness: Patient is a 74-year-old right-handed female, with history of diabetes, migraines came to the hospital by ambulance on 10/10/2024. EMS flowsheet not available in the chart. Patient has been diagnosed with acute UTI secondary Klebsiella pneumonia with sepsis and septic shock, acute anion gap metabolic acidosis, acute kidney injury, significant CAD, ELIZABET, history of adrenal insufficiency, obesity, hypertension and paroxysmal atrial fibrillation. Patient's vitals on arrival was blood pressure 74/64, pulse rate 52 temperature 98.6. Patient has been running low blood pressure in the beginning for which she required use of pressors for a short time. Neurology was consulted for blurred vision. Patient states that she always has slightly bad right eye vision, but the blurred vision in the right eye has got worse since , on the day of admission. Her left eye vision is fine, but also appears slightly more blurred baseline. She does have history of diabetes for 8 years, has undergone bilateral eyelid surgeries by Dr. Jordon Horan. She states her left eyelid has been "raised" and the right eyelid has been "lowered". Patient states that she cannot focus with the right eye. Patient believes the blurred vision is getting worse. Patient states her both arms feels heavy, right more than left. Legs also feel weak all over. She denies any slurred speech, facial droop. Patient also has history of migraines. The migraines have gone under remission, but her migraines have been getting worse in the last year, particularly in the last several months. She had undergone occipital nerve blocks in the past. Her most recent blood test shows normal WBC hemoglobin 8.8, platelets are 164. Electrolytes are normal BUN 34 creatinine 1.06. Patient's hemoglobin A1c 7.5 on 10/12/2024, LDL 90, HDL 55, cholesterol 193 and triglycerides 235. TSH is normal. CT head revealed no acute intracranial process. There is mild to moderate diffuse age-related cerebral atrophy and chronic small vessel ischemic changes redemonstrated. Left maxillary sinus disease. Patient had a carotid Doppler on 01/28/2020, which revealed persistent moderate atherosclerotic changes bilaterally without hemodynamically significant stenosis. Antegrade flow in both vertebral arteries. Patient had undergone cardiac catheterization, which revealed severe disease documented to be flow-limiting involving the mid left anterior descending artery. Consider staged PCI of the LAD, given that they have reached the maximum amount of contrast. Patient currently on aspirin 81 mg, Invanz, Protonix. Patient has been seen by myself for intractable migraines bilateral occipital neuralgia diabetes COPD fibromyalgia and hypertension. Most recently patient was seen on 03/17/2022 for dysarthria likely due to UTI, history of right basal infarct, bilateral vertebral artery stenosis, Patient denies history of tobacco or alcohol use. She does have hypertension and hyperlipidemia. Review of Systems All pertinent positive and negative review of systems mentioned in the HPI, otherwise unremarkable. Patient does appear slightly short of breath. Denies any chest pain. Denies double vision. Denies any slurred speech, facial droop, focal weakness or any strokelike symptoms. Past Medical History Past Medical History: Atrial Fibrillation, Diabetes Mellitus, Deep Vein Thrombosis (DVT), Fibromyalgia, Hyperlipidemia, Hypertension, Osteoarthritis (OA), Pneumonia, Renal Disease, Sleep Apnea/CPAP/BIPAP, Vascular Disorder Additional Past Medical History / Comment(s): Pt recently admitted to [facility] with R flank pain and UTI 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, DVT R calf in 1976, cardiac murmur, occipital neuraligia, balance issues-has narrowing of vessels "in the back of my head", vertigo, varicosities, states rt shoulder torn rotator cuff History of Any Multi-Drug Resistant Organisms: ESBL, MRSA, VRE Date of last positivie culture/infection: 11/25/20 ESBL;12/06/19 VRE; 03/10/11 MRSA MDRO Source:: Urine ESBL; Urine-VRE: MRSA 4th Right TOE Past Surgical History: Appendectomy, Back Surgery, Bladder Surgery, Breast Surgery, Cholecystectomy, Heart Catheterization, Hysterectomy, Orthopedic Surgery, Tonsillectomy Additional Past Surgical History / Comment(s): Lumbar fusions, bladder suspension, occipital nerve blocks, 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, R wrist/elbow nerve repair, bone removed R shoulder, 4th toe R foot partial amp utation, bilateral feet/bunionectomies, R knee arthroscopies, R orbit decompression with ethmoidectomy and eyelid lift, EGD, colonoscopies, cystocopies, lithotripsy/stents, bilateral breast reduction, bilateral cataract removals, parathyroid surgery - April 2019, pain clinic procedures Past Anesthesia/Blood Transfusion Reactions: No Reported Reaction Additional Past Anesthesia/Blood Transfusion Reaction / Comment(s): never recieved blood Past Psychological History: Depression Additional Psychological History / Comment(s): Pt resides with her spouse. She uses a walker. She normally drives. She has a nebulizer, cpap, bsc, shower chair, bp machine, dexcom monitor system for her BG and insulin pump. Smoking Status: Never smoker Past Alcohol Use History: None Reported Additional Past Alcohol Use History / Comment(s): no alcohol Past Drug Use History: None Reported - Past Family History Father Family Medical History: Coronary Artery Disease (CAD), CVA/TIA, Diabetes Mellitus, Myocardial Infarction ([place]), Pneumonia Additional Family Medical History / Comment(s): Father at the age of 78yrs from [place] and pneumonia. Mother Family Medical History: Cancer, Congestive Heart Failure (CHF) Additional Family Medical History / Comment(s): Mother had uterine cancer. She recently at the age of 96yrs old from shingles. Medications and Allergies Home Medications Medication Instructions Recorded Confirmed Type Meclizine [Antivert] 25 mg PO BID PRN 11/26/17 10/11/24 History L.acidoph,Paracasei, B.lactis 2 cap PO BID 10/08/18 10/11/24 History [Probiotic] Melatonin 5 mg PO HS PRN 10/08/18 10/11/24 History Thiamine [Vitamin B-1] 100 mg PO HS 10/08/18 10/11/24 History Vitamin B-Complex Drops 1 drop PO BID 10/08/18 10/11/24 History C,E,Zinc,Copper 11/Gopop7w/Lut 1 cap PO DAILY 06/25/20 10/11/24 History [Ocuvite Adult 50 Plus Softgel] Brimonidine Tartrate [Alphagan P 1 drop RIGHT EYE BID 11/26/20 10/11/24 History 0.2% Ophth Soln] Pantoprazole Sodium [Protonix] 40 mg PO BID 11/26/20 10/11/24 History Insulin Aspart (For Pump) [NovoLOG 0.01 unit SQ-PUMP CONTINUOUS 03/03/21 10/11/24 History (For Pump)] Cranberry Fruit Extract [Cranberry] 500 mg PO BID 05/25/22 10/11/24 History Multivit-Min/Folic Acid/Nng056 1 tab PO DAILY 05/25/22 10/11/24 History [Alive Premium Adult Multivit] Butalb/APAP/Caff 50-325-40Mg 1 tab PO Q6H PRN #12 tab 09/06/22 10/11/24 Rx [Fioricet 50-325-40] Dhea 50mg With B-12 2500mcg 1 tab PO HS 04/27/23 10/11/24 History Folic Acid 800mcg With Folate 1 tab PO HS 04/27/23 10/11/24 History 1333mg Magnesium Oxide [Mag-Ox] 400 mg PO BID 09/20/23 10/11/24 History buPROPion XL [Wellbutrin XL] 300 mg PO DAILY 09/20/23 10/11/24 History Iron 27mg 27 mg PO DAILY 09/23/23 10/11/24 History Turmeric Complex 550mg 550 mg PO HS 09/23/23 10/11/24 History Apixaban [Eliquis] 5 mg PO BID tab 09/28/23 10/11/24 Rx HYDROcodone/APAP 10-325MG [Bailey 1 tab PO Q6H PRN #12 tab 09/28/23 10/11/24 Rx 10-325] ARIPiprazole [Abilify] 10 mg PO HS 03/10/24 10/11/24 History Metoprolol Succinate [Toprol XL] 100 mg PO HS 03/10/24 10/11/24 History Potassium Gluconate 99 mg PO DAILY 03/10/24 10/11/24 History Rosuvastatin Calcium [Crestor] 5 mg PO HS 03/10/24 10/11/24 History Scopolamine [Scopolamine 1 MG/72 1 patch TRANSDERM Q72H PRN 03/10/24 10/11/24 History HR patch] Spironolactone [Aldactone] 50 mg PO DAILY 03/10/24 10/11/24 History Aspirin [Adult Low Dose Aspirin EC] 81 mg PO DAILY 05/06/24 10/11/24 History Promethazine [Phenergan] 25 mg PO BID PRN 05/06/24 10/11/24 History hydroCHLOROthiazide 25 mg PO DAILY 05/06/24 10/11/24 History Cyanocobalamin (Vitamin B-12) 2,500 mcg PO DAILY 07/19/24 10/11/24 History [Vitamin B-12] Dorzolamide 2% [Trusopt 2%] 1 drops RIGHT EYE BID 07/19/24 10/11/24 History lisinopriL [Zestril] 30 mg PO DAILY@1200 07/19/24 10/11/24 History Nystatin 100,000 Unit/gm Powd 1 applic TOPICAL BID 7 Days #1 each 07/26/24 10/11/24 Rx [Mycostatin Powder] Ondansetron [Zofran] 4 mg PO TID PRN #20 tab 07/26/24 10/11/24 Rx amLODIPine [Norvasc] 10 mg PO DAILY #30 tab 07/26/24 10/11/24 Rx busPIRone HCl [Buspar] 10 mg PO BID #0 07/26/24 10/11/24 Rx Albuterol Nebulized [Ventolin 2.5 mg INHALATION RT-QID PRN 10/11/24 10/11/24 History Nebulized] Hydrocortisone [Cortef] 10 mg PO HS 10/11/24 10/11/24 History Hydrocortisone [Cortef] 20 mg PO DAILY 10/11/24 10/11/24 History Allergies Allergy/AdvReac Type Severity Reaction Status Date / Time butorphanol tartrate Allergy BLISTERS Verified 10/11/24 08:30 [From Stadol] IN MOUTH ceftriaxone [From Rocephin] Allergy Rash/Hives Verified 10/11/24 08:30 clarithromycin [From Biaxin] Allergy Rash/Hives Verified 10/11/24 08:30 clindamycin Allergy Rash/Hives Verified 10/11/24 08:30 codeine Allergy Rash/Hives Verified 10/11/24 08:30 ergotamine tartrate Allergy Rash/Hives Verified 10/11/24 08:30 [From Cafergot] erythromycin base Allergy RASH, GI Verified 10/11/24 08:30 [From E-Mycin] SYMPTOMS ketorolac tromethamine Allergy Rash/Hives Verified 10/11/24 08:30 [From Toradol] liraglutide [From Victoza] Allergy Rash/Hives Verified 10/11/24 08:30 morphine Allergy Rash/Hives Verified 10/11/24 08:30 Penicillins Allergy Rash/Hives Verified 10/11/24 08:30 on upper body pentazocine lactate Allergy SEVERE Verified 10/11/24 08:30 [From Talwin] BLISTERS IN MOUTH pregabalin [From Lyrica] Allergy Rash/Hives Verified 10/11/24 08:30 propoxyphene HCl Allergy Rash/Hives Verified 10/11/24 08:30 [From Darvon] Sulfa (Sulfonamide Allergy Rash/Hives Verified 10/11/24 08:30 Antibiotics) sulfamethoxazole Allergy Rash/Hives Verified 10/11/24 08:30 [From Bactrim] tizanidine Allergy Unknown Verified 10/11/24 08:30 tramadol Allergy Unknown Verified 10/11/24 08:30 trimethoprim [From Bactrim] Allergy Rash/Hives Verified 10/11/24 08:30 vancomycin Allergy lip Verified 10/11/24 08:30 swelling metoclopramide [From Reglan] AdvReac Hallucinati Verified 10/11/24 08:30 ons monosodium glutamate [MSG] AdvReac Nausea & Verified 10/11/24 08:30 Vomiting nalbuphine HCl [From Nubain] AdvReac Nausea & Verified 10/11/24 08:30 Vomiting Physical Examination - Vital Signs Vital Signs: Vital Signs Temp Pulse Resp BP Pulse Ox FiO2 10/14/24 17:00 62 21 119/81 97 10/14/24 16:15 64 20 119/81 96 10/14/24 16:00 98.3 F 63 24 141/74 96 10/14/24 15:45 66 29 H 94 L 10/14/24 15:30 66 15 133/76 96 10/14/24 15:00 62 17 126/67 95 10/14/24 14:45 62 25 H 112/77 96 10/14/24 14:30 60 12 103/93 98 10/14/24 14:15 62 14 129/70 97 10/14/24 14:00 66 15 118/81 97 10/14/24 13:45 63 15 130/87 94 L 10/14/24 12:00 97.9 F 63 9 L 124/71 99 10/14/24 11:00 61 21 123/71 97 10/14/24 10:00 57 L 20 136/71 99 10/14/24 09:00 62 23 112/62 97 10/14/24 08:00 97.7 F 63 18 111/61 97 10/14/24 07:00 64 18 128/73 97 10/14/24 06:00 65 20 102/61 98 10/14/24 05:00 63 22 140/103 96 10/14/24 04:00 97.5 F L 65 25 H 123/71 97 10/14/24 03:00 61 18 130/73 95 10/14/24 02:00 61 19 123/73 97 10/14/24 01:00 58 L 19 132/79 98 10/14/24 00:00 97.8 F 66 19 127/77 99 10/13/24 23:04 63 21 97 10/13/24 23:00 67 14 125/75 96 10/13/24 22:00 64 24 147/71 91 L 10/13/24 21:00 77 16 149/78 97 10/13/24 20:00 97.7 F 75 24 158/84 98 10/13/24 19:00 80 20 158/85 99 35 Intake and Output 10/14/24 10/14/24 10/14/24 06:59 14:59 22:59 Intake Total 390 753.94 225 Output Total 300 245 100 Balance 90 508.94 125 Intake: IV 390 544.5 225 0.9 KVO 90 20 Sodium Chloride 0.9% 1, 300 000 ml @ 50 mls/hr IV . Q20H [facility] Rx#:[id number] Sodium Chloride 0.9% 1, 75 225 000 ml @ 75 mls/hr IV . [id number] [facility] Rx#:[id number] Sodium Chloride 0.9% 1, 247.5 000 ml In Empty Bag 1 bag @ 1 ML/KG/HR 82.5 mls/hr IV .Q12H8M [facility] Rx#: [id number] Intake, IV Titration 209.44 Amount Heparin Sod,Pork in 0.45% 209.44 NaCl 25,000 unit In 0.45 % NaCl 1 250ml.bag @ 12 UNITS/KG/HR 9.9 mls/hr IV .Q24H [facility] Rx#:[id number] Output: Urine 300 245 100 Other: Voiding Method Indwelling Catheter Indwelling Catheter Weight 88 kg Patient is an elderly female, very pleasant, in no acute distress. Patient appears somewhat sick, generalized weak. Patient is alert awake oriented to time place and person. Speech and language functions are normal. Patient can name and repeat very well. No aphasia or dysarthria. Attention, concentration and fund of knowledge is adequate. On cranial nerve examination, pupils are equal, round and reacting to light, visual hinds are full on confrontation, with no neglect on double simultaneous stimulation. Extraocular muscles are intact with no nystagmus. Patient has very prominent proptosis bilaterally. Face is symmetric, tongue protrudes to the midline. Palatal elevation and sensation normal, hearing and shoulder shrug normal, facial sensation normal. On muscle strength testing, there is no pronator drift and the strength is normal in arms and legs distally and proximally, except hip flexion which is about 3 3-bilaterally, with normal ankle dorsiflexion.. Deep tendon reflexes are symmetric but diminished all over and plantars are flat. Sensory to touch is equal with no neglect on double simultaneous stimulation. Cerebellar function showed no ataxia for vnvnvy-ga-silh testing. There is mild fine tremors of outstretched hands. Patient has mild to moderate shakiness for [id number] testing bilaterally and she often misses the target. No dysdiadochokinesia. No ataxia for weii-de-fwha testing on either side. Tone and bulk of muscles normal. Gait deferred.. On general examination, there is no carotid bruit or murmur, S1-S2 audible. Chest is clear on consultation. Abdomen is soft nontender. No organomegaly, bowel sounds present. Peripheral pulses are present. No peripheral edema. Results - Laboratory Findings CBC and BMP: 10/14/24 04:48 10/14/24 04:48 Abnormal Lab Findings: Abnormal Labs 10/10/24 10/10/24 10/10/24 17:56 17:56 17:56 WBC 15.72 H RBC Hgb Hct MCV MCHC 31.9 L Immature Gran # 0.18 H Neutrophils # 12.47 H Lymphocytes # Monocytes # 1.58 H Eosinophils # PT INR APTT ABG pH ABG pCO2 ABG pO2 ABG HCO3 ABG Total CO2 ABG O2 Saturation Hemoglobin Sodium 135 L Potassium 6.5 H* Chloride Carbon Dioxide 10 L BUN 47 H Creatinine 4.23 H Glucose 151 H POC Glucose (mg/dL) Hemoglobin A1c Calcium Troponin I 1.510 H* Urine Appearance Urine Protein Urine Blood Ur Leukocyte Esterase Urine RBC Urine WBC Urine WBC Clumps Urine Bacteria Urine Mucus Stool Occult Blood 10/10/24 10/10/24 10/11/24 18:50 23:14 00:15 WBC RBC Hgb Hct MCV MCHC Immature Gran # Neutrophils # Lymphocytes # Monocytes # Eosinophils # PT INR APTT ABG pH ABG pCO2 ABG pO2 ABG HCO3 ABG Total CO2 ABG O2 Saturation Hemoglobin Sodium Potassium 5.3 H Chloride 109 H Carbon Dioxide 8 L* BUN 43 H Creatinine 3.47 H Glucose 170 H POC Glucose (mg/dL) 174 H Hemoglobin A1c Calcium Troponin I Urine Appearance Turbid H Urine Protein 2+ H Urine Blood Small H Ur Leukocyte Esterase Large H Urine RBC 21 H Urine WBC >182 H Urine WBC Clumps Many H Urine Bacteria Moderate H Urine Mucus Few H Stool Occult Blood 10/11/24 10/11/24 10/11/24 00:15 02:53 02:53 WBC 11.82 H RBC 3.47 L Hgb 10.3 L Hct 34.0 L MCV 98.0 H MCHC 30.3 L Immature Gran # 0.11 H Neutrophils # 9.35 H Lymphocytes # Monocytes # 1.06 H Eosinophils # PT INR APTT ABG pH ABG pCO2 ABG pO2 ABG HCO3 ABG Total CO2 ABG O2 Saturation Hemoglobin Sodium 135 L Potassium 5.4 H Chloride 108 H Carbon Dioxide 6 L* BUN 44 H Creatinine 3.40 H Glucose 210 H POC Glucose (mg/dL) Hemoglobin A1c Calcium Troponin I 1.130 H* Urine Appearance Urine Protein Urine Blood Ur Leukocyte Esterase Urine RBC Urine WBC Urine WBC Clumps Urine Bacteria Urine Mucus Stool Occult Blood 10/11/24 10/11/24 10/11/24 06:44 07:59 12:30 WBC RBC Hgb Hct MCV MCHC Immature Gran # Neutrophils # Lymphocytes # Monocytes # Eosinophils # PT INR APTT ABG pH 7.19 L* ABG pCO2 28 L ABG pO2 ABG HCO3 11 L ABG Total CO2 12 L ABG O2 Saturation 97.8 H Hemoglobin 9.8 L Sodium Potassium Chloride Carbon Dioxide BUN Creatinine Glucose POC Glucose (mg/dL) 252 H 452 H Hemoglobin A1c Calcium Troponin I Urine Appearance Urine Protein Urine Blood Ur Leukocyte Esterase Urine RBC Urine WBC Urine WBC Clumps Urine Bacteria Urine Mucus Stool Occult Blood 10/11/24 10/11/24 10/11/24 13:07 16:51 17:30 WBC RBC Hgb Hct MCV MCHC Immature Gran # Neutrophils # Lymphocytes # Monocytes # Eosinophils # PT INR APTT ABG pH ABG pCO2 ABG pO2 ABG HCO3 ABG Total CO2 ABG O2 Saturation Hemoglobin Sodium Potassium Chloride Carbon Dioxide 16 L BUN 37 H Creatinine 2.52 H Glucose 452 H POC Glucose (mg/dL) 415 H 409 H Hemoglobin A1c Calcium 6.9 L Troponin I Urine Appearance Urine Protein Urine Blood Ur Leukocyte Esterase Urine RBC Urine WBC Urine WBC Clumps Urine Bacteria Urine Mucus Stool Occult Blood 10/11/24 10/11/24 10/11/24 17:44 18:50 20:52 WBC RBC Hgb Hct MCV MCHC Immature Gran # Neutrophils # Lymphocytes # Monocytes # Eosinophils # PT INR APTT ABG pH ABG pCO2 ABG pO2 ABG HCO3 ABG Total CO2 ABG O2 Saturation Hemoglobin Sodium Potassium Chloride Carbon Dioxide BUN Creatinine Glucose POC Glucose (mg/dL) 477 H 451 H 353 H Hemoglobin A1c Calcium Troponin I Urine Appearance Urine Protein Urine Blood Ur Leukocyte Esterase Urine RBC Urine WBC Urine WBC Clumps Urine Bacteria Urine Mucus Stool Occult Blood 10/11/24 10/11/24 10/11/24 22:02 22:53 23:48 WBC RBC Hgb Hct MCV MCHC Immature Gran # Neutrophils # Lymphocytes # Monocytes # Eosinophils # PT INR APTT ABG pH ABG pCO2 ABG pO2 ABG HCO3 ABG Total CO2 ABG O2 Saturation Hemoglobin Sodium Potassium Chloride Carbon Dioxide BUN Creatinine Glucose POC Glucose (mg/dL) 316 H 297 H 188 H Hemoglobin A1c Calcium Troponin I Urine Appearance Urine Protein Urine Blood Ur Leukocyte Esterase Urine RBC Urine WBC Urine WBC Clumps Urine Bacteria Urine Mucus Stool Occult Blood 10/12/24 10/12/24 10/12/24 01:14 02:54 04:01 WBC RBC Hgb Hct MCV MCHC Immature Gran # Neutrophils # Lymphocytes # Monocytes # Eosinophils # PT INR APTT ABG pH ABG pCO2 ABG pO2 ABG HCO3 ABG Total CO2 ABG O2 Saturation Hemoglobin Sodium Potassium Chloride Carbon Dioxide BUN Creatinine Glucose POC Glucose (mg/dL) 165 H 114 H 134 H Hemoglobin A1c Calcium Troponin I Urine Appearance Urine Protein Urine Blood Ur Leukocyte Esterase Urine RBC Urine WBC Urine WBC Clumps Urine Bacteria Urine Mucus Stool Occult Blood 10/12/24 10/12/24 10/12/24 05:00 05:00 05:00 WBC 11.06 H RBC 3.04 L Hgb 9.2 L Hct 28.1 L MCV MCHC Immature Gran # 0.09 H Neutrophils # 9.70 H Lymphocytes # 0.48 L Monocytes # Eosinophils # 0.00 L PT INR APTT ABG pH ABG pCO2 ABG pO2 ABG HCO3 ABG Total CO2 ABG O2 Saturation Hemoglobin Sodium Potassium Chloride Carbon Dioxide BUN 37 H Creatinine 1.86 H Glucose 176 H POC Glucose (mg/dL) Hemoglobin A1c 7.5 H Calcium 7.2 L Troponin I Urine Appearance Urine Protein Urine Blood Ur Leukocyte Esterase Urine RBC Urine WBC Urine WBC Clumps Urine Bacteria Urine Mucus Stool Occult Blood 10/12/24 10/12/24 10/12/24 05:03 06:03 06:51 WBC RBC Hgb Hct MCV MCHC Immature Gran # Neutrophils # Lymphocytes # Monocytes # Eosinophils # PT INR APTT ABG pH ABG pCO2 ABG pO2 ABG HCO3 ABG Total CO2 ABG O2 Saturation Hemoglobin Sodium Potassium Chloride Carbon Dioxide BUN Creatinine Glucose POC Glucose (mg/dL) 211 H 167 H 145 H Hemoglobin A1c Calcium Troponin I Urine Appearance Urine Protein Urine Blood Ur Leukocyte Esterase Urine RBC Urine WBC Urine WBC Clumps Urine Bacteria Urine Mucus Stool Occult Blood 10/12/24 10/12/24 10/12/24 08:18 09:05 10:18 WBC RBC Hgb Hct MCV MCHC Immature Gran # Neutrophils # Lymphocytes # Monocytes # Eosinophils # PT INR APTT ABG pH ABG pCO2 ABG pO2 ABG HCO3 ABG Total CO2 ABG O2 Saturation Hemoglobin Sodium Potassium Chloride Carbon Dioxide BUN Creatinine Glucose POC Glucose (mg/dL) 194 H 179 H 158 H Hemoglobin A1c Calcium Troponin I Urine Appearance Urine Protein Urine Blood Ur Leukocyte Esterase Urine RBC Urine WBC Urine WBC Clumps Urine Bacteria Urine Mucus Stool Occult Blood 10/12/24 10/12/24 10/12/24 14:27 14:56 15:35 WBC RBC Hgb Hct MCV MCHC Immature Gran # Neutrophils # Lymphocytes # Monocytes # Eosinophils # PT 12.7 H INR 1.2 H APTT ABG pH ABG pCO2 ABG pO2 ABG HCO3 ABG Total CO2 ABG O2 Saturation Hemoglobin Sodium Potassium Chloride Carbon Dioxide BUN Creatinine Glucose POC Glucose (mg/dL) 228 H Hemoglobin A1c Calcium Troponin I Urine Appearance Urine Protein Urine Blood Ur Leukocyte Esterase Urine RBC Urine WBC Urine WBC Clumps Urine Bacteria Urine Mucus Stool Occult Blood Positive H 10/12/24 10/12/24 10/12/24 16:43 18:09 21:06 WBC RBC Hgb Hct MCV MCHC Immature Gran # Neutrophils # Lymphocytes # Monocytes # Eosinophils # PT INR APTT ABG pH ABG pCO2 ABG pO2 ABG HCO3 ABG Total CO2 ABG O2 Saturation Hemoglobin Sodium Potassium Chloride Carbon Dioxide BUN Creatinine Glucose POC Glucose (mg/dL) 192 H 170 H 154 H Hemoglobin A1c Calcium Troponin I Urine Appearance Urine Protein Urine Blood Ur Leukocyte Esterase Urine RBC Urine WBC Urine WBC Clumps Urine Bacteria Urine Mucus Stool Occult Blood 10/12/24 10/12/24 10/12/24 21:54 21:54 23:05 WBC 11.29 H RBC 2.92 L Hgb 8.9 L Hct 27.1 L MCV MCHC Immature Gran # Neutrophils # Lymphocytes # Monocytes # Eosinophils # PT INR APTT 44.2 H ABG pH 7.48 H ABG pCO2 ABG pO2 114 H ABG HCO3 33 H ABG Total CO2 34 H ABG O2 Saturation 99.4 H Hemoglobin 9.1 L Sodium Potassium Chloride Carbon Dioxide BUN Creatinine Glucose POC Glucose (mg/dL) Hemoglobin A1c Calcium Troponin I Urine Appearance Urine Protein Urine Blood Ur Leukocyte Esterase Urine RBC Urine WBC Urine WBC Clumps Urine Bacteria Urine Mucus Stool Occult Blood 10/12/24 10/13/24 10/13/24 23:08 03:00 03:04 WBC 10.68 H RBC 3.02 L Hgb 9.1 L Hct 28.3 L MCV MCHC Immature Gran # Neutrophils # Lymphocytes # Monocytes # Eosinophils # PT INR APTT ABG pH ABG pCO2 ABG pO2 ABG HCO3 ABG Total CO2 ABG O2 Saturation Hemoglobin Sodium Potassium Chloride Carbon Dioxide BUN Creatinine Glucose POC Glucose (mg/dL) 156 H 123 H Hemoglobin A1c Calcium Troponin I Urine Appearance Urine Protein Urine Blood Ur Leukocyte Esterase Urine RBC Urine WBC Urine WBC Clumps Urine Bacteria Urine Mucus Stool Occult Blood 10/13/24 10/13/24 10/13/24 04:36 05:18 05:24 WBC RBC Hgb Hct MCV MCHC Immature Gran # Neutrophils # Lymphocytes # Monocytes # Eosinophils # PT INR APTT ABG pH ABG pCO2 ABG pO2 ABG HCO3 ABG Total CO2 ABG O2 Saturation Hemoglobin Sodium Potassium Chloride Carbon Dioxide BUN 35 H Creatinine 1.26 H Glucose 186 H POC Glucose (mg/dL) 206 H 197 H Hemoglobin A1c Calcium 7.0 L Troponin I Urine Appearance Urine Protein Urine Blood Ur Leukocyte Esterase Urine RBC Urine WBC Urine WBC Clumps Urine Bacteria Urine Mucus Stool Occult Blood 10/13/24 10/13/24 10/13/24 05:30 07:48 09:06 WBC 10.04 H RBC 2.87 L Hgb 8.7 L Hct 27.9 L MCV 97.2 H MCHC 31.2 L Immature Gran # Neutrophils # Lymphocytes # Monocytes # Eosinophils # PT INR APTT ABG pH ABG pCO2 ABG pO2 ABG HCO3 ABG Total CO2 ABG O2 Saturation Hemoglobin Sodium Potassium Chloride Carbon Dioxide BUN Creatinine Glucose POC Glucose (mg/dL) 179 H 179 H Hemoglobin A1c Calcium Troponin I Urine Appearance Urine Protein Urine Blood Ur Leukocyte Esterase Urine RBC Urine WBC Urine WBC Clumps Urine Bacteria Urine Mucus Stool Occult Blood 10/13/24 10/13/24 10/13/24 10:12 12:04 14:47 WBC RBC Hgb Hct MCV MCHC Immature Gran # Neutrophils # Lymphocytes # Monocytes # Eosinophils # PT INR APTT 37.7 H ABG pH ABG pCO2 ABG pO2 ABG HCO3 ABG Total CO2 ABG O2 Saturation Hemoglobin Sodium Potassium Chloride Carbon Dioxide BUN Creatinine Glucose POC Glucose (mg/dL) 170 H 214 H Hemoglobin A1c Calcium Troponin I Urine Appearance Urine Protein Urine Blood Ur Leukocyte Esterase Urine RBC Urine WBC Urine WBC Clumps Urine Bacteria Urine Mucus Stool Occult Blood 10/13/24 10/13/24 10/13/24 17:55 20:18 23:04 WBC RBC Hgb Hct MCV MCHC Immature Gran # Neutrophils # Lymphocytes # Monocytes # Eosinophils # PT INR APTT 48.4 H ABG pH ABG pCO2 ABG pO2 ABG HCO3 ABG Total CO2 ABG O2 Saturation Hemoglobin Sodium Potassium Chloride Carbon Dioxide BUN Creatinine Glucose POC Glucose (mg/dL) 238 H 241 H Hemoglobin A1c Calcium Troponin I Urine Appearance Urine Protein Urine Blood Ur Leukocyte Esterase Urine RBC Urine WBC Urine WBC Clumps Urine Bacteria Urine Mucus Stool Occult Blood 10/14/24 10/14/24 10/14/24 04:48 04:48 04:48 WBC RBC 2.93 L Hgb 8.8 L Hct 28.5 L MCV 97.3 H MCHC 30.9 L Immature Gran # 0.07 H Neutrophils # Lymphocytes # 0.52 L Monocytes # Eosinophils # 0.00 L PT INR APTT 40.0 H ABG pH ABG pCO2 ABG pO2 ABG HCO3 ABG Total CO2 ABG O2 Saturation Hemoglobin Sodium Potassium Chloride Carbon Dioxide BUN 34 H Creatinine 1.06 H Glucose 267 H POC Glucose (mg/dL) Hemoglobin A1c Calcium 6.9 L Troponin I Urine Appearance Urine Protein Urine Blood Ur Leukocyte Esterase Urine RBC Urine WBC Urine WBC Clumps Urine Bacteria Urine Mucus Stool Occult Blood 10/14/24 10/14/24 10/14/24 06:00 10:59 11:30 WBC RBC Hgb Hct MCV MCHC Immature Gran # Neutrophils # Lymphocytes # Monocytes # Eosinophils # PT INR APTT 49.8 H ABG pH ABG pCO2 ABG pO2 ABG HCO3 ABG Total CO2 ABG O2 Saturation Hemoglobin Sodium Potassium Chloride Carbon Dioxide BUN Creatinine Glucose POC Glucose (mg/dL) 278 H 196 H Hemoglobin A1c Calcium Troponin I Urine Appearance Urine Protein Urine Blood Ur Leukocyte Esterase Urine RBC Urine WBC Urine WBC Clumps Urine Bacteria Urine Mucus Stool Occult Blood 10/14/24 16:07 WBC RBC Hgb Hct MCV MCHC Immature Gran # Neutrophils # Lymphocytes # Monocytes # Eosinophils # PT INR APTT ABG pH ABG pCO2 ABG pO2 ABG HCO3 ABG Total CO2 ABG O2 Saturation Hemoglobin Sodium Potassium Chloride Carbon Dioxide BUN Creatinine Glucose POC Glucose (mg/dL) 145 H Hemoglobin A1c Calcium Troponin I Urine Appearance Urine Protein Urine Blood Ur Leukocyte Esterase Urine RBC Urine WBC Urine WBC Clumps Urine Bacteria Urine Mucus Stool Occult Blood Assessment and Plan Assessment: * Blurred vision right eye, worse than baseline, unclear cause. Rule out carotid artery stenosis. 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 Patient does have history of diabetes, rule out diabetic retinopathy or other ocular pathology. Rule out temporal arteritis * Bilateral proptosis. * Metabolic encephalopathy * Acute UTI secondary to Klebsiella pneumonia with sepsis and septic shock * Acute kidney injury * History of paroxysmal atrial fibrillation * History of migraine headaches, recently worse. * Obstructive sleep apnea * History of adrenal insufficiency * Hypertension * Diabetes * Coronary artery disease Plan: * Check carotid Doppler rule out stenosis. * ESR, CRP, rule out temporal arteritis. * Avoid hypotension. * Recommend ophthalmology consultation rule out ocular intrinsic pathology. * B12, folate. * Hemoglobin A1c 7.5. Recommend optimize control of diabetes to target A1c <7.0. * Lipid panel with cholesterol 193, LDL 90, HDL 55 and triglycerides 235. Patient on Crestor 5 mg at bedtime. We will start Lipitor 20 mg while in hospital. * TSH normal 1.85. * Continue Eliquis for paroxysmal atrial fibrillation. Continue aspirin 81 mg daily. Cardiology on board. * Patient currently on Invanz for UTI. * Other management as per IM/critical care and other multiple specialties on board. * Neurology will follow. Thank you for the consult. Time with Patient: Greater than 30
[2024-10-15] MEDS: CLOPIDOGREL 75 MG TAB PO SCH (08:26)
--- NOTE | 2024-10-15 08:27 | CDI ---
Documentation Clarification Form Date: 10/15/2024 07:58:41 AM From: Melinda Watson RN CCDS Phone: [phone] Admit Date: 10/10/2024 10:16:00 PM Patient Name: Melissa Pena Visit Number: [id number] Discharge Date: ATTENTION: The Clinical Documentation Specialists (CDI) and [facility] Coding Staff appreciate your assistance in clarifying documentation. Please respond to the clarification below the line at the bottom and electronically sign. The CDI & [facility] Coding staff will review the response and follow-up if needed. Please note: Queries are made part of the Legal Health Record. If you have any questions, please contact the author of this message via ITS. Dr. Chico Chandra Hypoxic Respiratory Failure is documented 10/14, Cardiology note which may lack sufficient clinical evidence/support in the medical record. Additional clarification is requested. Patient history/risk factors: 74 year old female presents to the ED with nausea vomiting, abdominal pain. The patient was admitted to the ICU for hypotension. Medical History: Atiral Fibrillation, DM, DVT, HTN, OA and Sleep Apnea / CPAP/ BiPAP. 10/11 Clinical Indicators: 10/11 CXR: Mild cardiomegaly 10/11 07:45: VSS: B/P 64/37, HR 131, Temp 101.1F Axillary, RR 22, SpO2 97% ra 10/11 08:00: RR 32, SpO2 97% 4L nc 10/11, Cardiology Lung examination: Clear to auscultation 10/12 & 10/13, Cardiology Lung examination : Bilateral breath sounds are heard 10/14, Cardiology Lung examination: Mild crackles audible in bilateral lung hinds. Treatment: 10/11 0800 10/11 1600 4L nc ; 10/11 1600 - 10/14 12:00 3L nc; 10/14 12:00 current 2L nc ; 10/11 SoluCortef IV Q8H, After work up and study, please clarify which diagnosis is most appropriate? [ ] Hypoxic Respiratory Failure ruled out [ ] Acute Respiratory Failure is a valid diagnosis as evidenced by the following: [ ] Respiratory Insufficiency [ ] Unable to determine [ ] Other, please specify this is a query that should be posed to pulmonary/c wpf developer (Template Last Revised: June 2023) TAJ
[2024-10-15] MEDS: ERTAPENEM 1 GM in SODIUM CHLORIDE 0.9% 50 ML IVPB SCH (08:33)
[2024-10-15] MEDS: FUROSEMIDE 10 MG/ML 2 ML VIAL IV STA ×3 (08:47→09:06)
[2024-10-15] MEDS: FUROSEMIDE 10 MG/ML 4 ML VIAL IV SCH (09:06)
--- NOTE | 2024-10-15 10:23 | XR ---
EXAMINATION TYPE: XR chest 1V portable DATE OF EXAM: 10/15/2024 10:14 AM COMPARISON: 10/11/2024 CLINICAL INDICATION: Female, 74 years old with history of chf, , FINDINGS: Previous surgical resection distal right clavicle. ACDF hardware. Left subclavian CVC tip mid SVC. He art mildly enlarged. Interstitial density persists. Possible trace right effusion tracking up the supriya e wall and minimally thickening in the minor fissure. Left base underpenetrated and not well assessed . Old left-sided rib fracture deformities. IMPRESSION: Fairly similar findings suggesting mild CHF with pulmonary vascular congestion. There may be developm ent of a trace right pleural effusion now. Left base underpenetrated and not well assessed. [facility], , 10/15/2024 10:21 AM
[2024-10-15] MEDS: ASPIRIN 81 MG PO STA (11:01)
[2024-10-15] MEDS: ATORVASTATIN 80 MG TAB PO STA (11:01)
[2024-10-15 11:19] LABS: Glucose,Whole Blood 199 mg/dL (70-110)
--- NOTE | 2024-10-15 11:37 | P.PN ---
Subjective Progress Note Date: 10/15/24 Principal diagnosis: Hospital course: Patient is a 74-year-old female with past medical history of CAD hypertension dyslipidemia type 2 diabetes obstructive sleep apnea, atrial insufficiency, thoracic aortic aneurysm, paroxysmal atrial fibrillation known to Dr. Sharma. She was last hospitalized in July 2024 with urinary tract infection found to have Klebsiella pneumonia. This time she presented to the hospital because of concerns of UTI. On admission she had evidence of septic shock with gram- negative bacteremia along with evidence of MARIO with creatinine of 4.3 along with elevated troponin of 1.5 without oriented pattern. She also had anion gap metabolic acidosis with bicarb of 6. Currently she is being managed in ICU for shock state. She was previously managed on IV pressors. With fluid resuscitation and antibiotics her hemodynamics has improved and she has been weaned off pressors. Currently she is borderline hypertensive. This morning she was complaining of some substernal chest heaviness for which cardiology was consulted. EKG shows sinus rhythm with ST depressions in lateral leads with elevations in V1 and aVR. Prior cardiac testing: Cardiac catheterization 2018 showed intermediate disease involving proximal LAD with 60% disease and aneurysm formation Echo from August 2022 shows an EF of 60%, moderate MR, mild AR Yesterday while being on IV heparin drip and IV nitro drip she complained of some blurry vision and some headache. For this nitroglycerin and heparin drip was discontinued and we did a CT head which did not show any evidence of intracranial hemorrhage or any acute intracranial process. And heparin drip was resumed but kept her IV nitroglycerin off because of headache. 10/14/24: Patient seen and examined at bedside today. She continues to be in the ICU. No new complaints today. Pulse 62 bpm, BP 112/62 WBC 8.67, hemoglobin 8.8, APTT 40, sodium 145, potassium 4.1, BUN 34, creatinine 1.06 Echocardiogram obtained today shows EF 55 to 60%, RVSP 31, mild to moderate tricuspid regurgitation 10/15/24: Patient evaluated at bedside today. She reports shortness of breath and is anxious about the procedure. Patient underwent cardiac catheterization yesterday that showed severe disease documented to be flow-limiting involving the mid LAD, intermediate disease documented to be nonflow limiting involving the ramus intermedius, elevated left-sided filling pressure. Patient is also worried about her blurry vision, Neurology is following and obtained Carotid Doppler study. BP 146/84, P 60 bpm, SpO2 96% on 2L oxygen via nasal cannula WBC 7.93, hemoglobin 9.3, potassium 4.5, creatinine 0.86, CRP 18.4 Carotid Doppler study shows 50 to 69% stenosis on the right side and less than 50% stenosis on the left side Review of systems: Pertinent positives and negatives as discussed in HPI, a complete review of systems was performed and all other systems are negative. Physical examination: Vital signs reviewed GENERAL: This is a 74-year-old obese female, anxious HEENT: Head is atraumatic, normocephalic. NECK: Supple, no JVD LUNGS: mild crackles audible in bilateral lung hinds HEART: S1-S2 audible ABDOMEN: Soft, nontender EXTREMITIES: No edema Neuro: Alert, oritented, no focal deficits. Detailed neuro exam was not performed. Assessment: Gram-negative septicemia with UTI Septic shock Anion gap metabolic acidosis MARIO, resolving NSTEMI, S/p cardiac cath 10/14/24 showing severe flow limiting disease in mid LAD Prior history of CAD with intermediate 60% disease in proximal LAD from 2019 History of paroxysmal atrial fibrillation History of renal insufficiency Obstructive sleep apnea Obesity Plan: Scheduled for cardiac catheterization today 0.9 normal saline KVO Lasix 20 mg IV x 2 Continue Lasix 40 mg IV daily Continue metoprolol 50 twice daily Continue aspirin 81, amlodipine 10, lipitor 20, Plavix 75 Monitor hemoglobin levels, kidney function and urine output. Prognosis guarded Dictation was produced using [employer] dictation software. please excuse any grammatical, word or spelling errors. Servando Lechuga MD PGY-1 IM Objective - Vital Signs Vital signs: Vital Signs Temp 98.1 F 10/15/24 08:00 Pulse 67 10/15/24 09:00 Resp 30 H 10/15/24 09:00 BP 145/94 10/15/24 09:00 Pulse Ox 96 10/15/24 09:00 FiO2 35 10/13/24 19:00 Intake & Output 10/14/24 10/15/24 10/15/24 18:59 06:59 18:59 Intake Total 1128.94 300 Output Total 525 125 Balance 603.94 175 Weight 88 kg Intake: IV 919.5 300 0.9 KVO 20 Sodium Chloride 0.9% 1, 450 300 000 ml @ 75 mls/hr IV . [id number] [facility] Rx#:[id number] Sodium Chloride 0.9% 1, 247.5 000 ml In Empty Bag 1 bag @ 1 ML/KG/HR 82.5 mls/hr IV .[id number] [facility] Rx#: [id number] Intake, IV Titration 209.44 Amount Heparin Sod,Pork in 0.45% 209.44 NaCl 25,000 unit In 0.45 % NaCl 1 250ml.bag @ 12 UNITS/KG/HR 9.9 mls/hr IV .Q24H [facility] Rx#:[id number] Output: Urine 525 125 Other: Voiding Method Indwelling Catheter Indwelling Catheter ABP, PAP, CO, CI - Last Documented Arterial Blood Pressure 146/59 - Labs CBC & Chem 7: 10/15/24 07:03 10/15/24 07:03 Labs: Abnormal Lab Results - Last 24 Hours (Table) 10/14/24 10/14/24 10/14/24 Range/Units 04:48 10:59 11:30 RBC (4.10-5.20) 10*6/uL Hgb (12.0-15.0) g/dL Hct (37.2-46.3) % MCHC (32.0-37.0) g/dL Immature Gran # (0.00-0.04) 10*3/uL Lymphocytes # (0.90-5.00) 10*3/uL Eosinophils # (0.04-0.35) 10*3/uL APTT 49.8 H (22.0-30.0) sec BUN (7-17) mg/dL Glucose (74-99) mg/dL POC Glucose (mg/dL) 196 H (70-110) mg/dL Calcium (8.4-10.2) mg/dL C-Reactive Protein 18.4 H (<1.0) mg/dL Vitamin B12 1683.0 H (200.0-944.0) pg/mL 10/14/24 10/14/24 10/15/24 Range/Units 16:07 20:17 06:16 RBC (4.10-5.20) 10*6/uL Hgb (12.0-15.0) g/dL Hct (37.2-46.3) % MCHC (32.0-37.0) g/dL Immature Gran # (0.00-0.04) 10*3/uL Lymphocytes # (0.90-5.00) 10*3/uL Eosinophils # (0.04-0.35) 10*3/uL APTT (22.0-30.0) sec BUN (7-17) mg/dL Glucose (74-99) mg/dL POC Glucose (mg/dL) 145 H 215 H 160 H (70-110) mg/dL Calcium (8.4-10.2) mg/dL C-Reactive Protein (<1.0) mg/dL Vitamin B12 (200.0-944.0) pg/mL 10/15/24 10/15/24 Range/Units 07:03 07:03 RBC 3.09 L (4.10-5.20) 10*6/uL Hgb 9.3 L (12.0-15.0) g/dL Hct 29.9 L (37.2-46.3) % MCHC 31.1 L (32.0-37.0) g/dL Immature Gran # 0.20 H (0.00-0.04) 10*3/uL Lymphocytes # 0.63 L (0.90-5.00) 10*3/uL Eosinophils # 0.00 L (0.04-0.35) 10*3/uL APTT (22.0-30.0) sec BUN 31 H (7-17) mg/dL Glucose 149 H (74-99) mg/dL POC Glucose (mg/dL) (70-110) mg/dL Calcium 6.9 L (8.4-10.2) mg/dL C-Reactive Protein (<1.0) mg/dL Vitamin B12 (200.0-944.0) pg/mL Microbiology - Last 24 Hours (Table) 10/11/24 00:15 Blood Culture - Preliminary Blood
--- NOTE | 2024-10-15 12:12 | P.PN ---
Subjective Progress Note Date: 10/15/24 Principal diagnosis: Acute urinary tract infection with sepsis and septic shock secondary to Klebsiella pneumonia Patient is a 74-year-old female with past medical history significant for hypertension, hyperlipidemia, diabetes mellitus, atrial fibrillation anticoagulated on Eliquis, obstructive sleep apnea with home CPAP, COPD, adrenal insufficiency, and recurrent urinary tract infections. Of note, patient had a recent hospitalization July, for urinary tract infection. Urine culture was remarkable for Klebsiella pneumonia at that time. No further treatment with antibiotics following her hospitalization in July. Presents the emergency department history evening with concerns of UTI. She was also noted to be hypotensive and tachycardic. With elevated WBC count. Workup in the emergency department including CT of the abdomen and pelvis which did not show any suspicious bowel obstructions or ileus. Bilateral renal cysts were noted. No stones or hydronephrosis. Found to be in acute kidney injury/failure. Creatinine 4.23. Urinalysis remarkable for pyuria and bacteriuria. Urine culture was sent. Potassium was critically elevated at 6.5. This was treated in the ED with a combination of insulin 10 units regular, D50 W amp, 1 g calcium gluconate, concentrated albuterol treatment, as well as 5 g of Lokelma. EKG reviewed, sinus rhythm, rate 94 bpm, no QRS widening or peaked T waves. Nonspecific mild ST depressions. She does take lisinopril, Aldactone, as well as, potassium supplements at home. Remaining blood work remarkable for a CBC with a WBC count of 15.7, hemoglobin 12.7, platelets 299. CMP: Sodium 135, potassium 6.5, chloride 105, serum bicarb 10, anion gap 20, BUN 47, creatinine 4.23, glucose 151. Lactic 1.6. LFTs not elevated. Troponin 1.51, probably related to poor renal clearance. Patient is currently being evaluated in the intensive care unit. She is alert and oriented. States over the last week she has had burning with urination accompanied with urinary frequency and right flank pain. Denies any hematuria. No documented fevers but has been chilled. She has been eating and drinking without issue up until 24 to 48 hours prior to ER presentation where she developed some nausea and vomiting with with eating and drinking. Denies hematochezia, melanotic stools, hematemesis. Denies abdominal pain. Mucous membranes appear dry. Blood pressures improved with fluid resuscitation. She has been fluid resuscitated with a total of 2 L normal saline in the ED and continues on normal saline at 130 mL/h. Heart rate is tachycardic. Not requiring any vasopressors at the moment. Empirically covered with Levaquin in the ED. She has multiple medication/antibiotic allergies. Repeat labs are pending. On 10/12/2024, the patient is being seen for a follow-up. The patient is currently off pressors. Hemodynamically stable. Vasopressin has been discontinued. Norepinephrine has been discontinued. Patient remains on a bicarb infusion at rate of 100 cc an hour. Fluid balance is +5.3 L negative patient remains on 3 Suboxone by nasal cannula. The patient's urine culture is showing gram-negative bacillus and the blood culture still pending. The patient remains on IV Invanz. The patient is also on stress dose hydrocortisone. The bicarb infusion will be discontinued the patient will be switched to a normal saline rate of 50 cc an hour. No other significant events overnight. She is awake and alert. Aspirin, Wellbutrin and BuSpar to be resumed. Blood sugars under better control for now. Renal function continues to improve and today's blood work shows a creatinine of 1.8 with a BUN of 37. Sodium is at 140 with a potassium level of 4. Serum bicarb is at 30,. White cell count 11, hemoglobin 9.2 and platelet count of 200. On today's evaluation of 10/13/2024, the patient is awake and alert and the patient is communicating. No hypotension. No pressors. No altered mentation. No chest pain. No pleurisy. No hemoptysis. Urine output is adequate. The patient is afebrile. Hemodynamically stable. Meanwhile, the patient's urine culture is positive for Klebsiella pneumonia and the patient remains on IV Invanz and the choice of antibiotics was made based on her extensive allergies. The white cell count is currently down to 10.04 with a hemoglobin of 8.7 and a platelet count of 185. Sodium is 141, creatinine continues to improve and is down to 1.26 with a BUN of 35. Potassium is at 3.8. Bicarb level is at 28. The patient remains on an insulin drip and she is known to have diabetes mellitus maintained on insulin pump on an outpatient basis. I am going to transition this patient to long-acting insulin with Lantus. The patient is also on stress dose hydrocortisone. This was given to her due to her underlying chronic adrenal sufficiency Seen today on 10/14/2024, patient remains in the ICU as an overflow, she is on 5 L nasal cannula, does not seem to be in distress, remains on Solu-Cortef she is also on Invanz and on Eliquis. Patient is being treated for Klebsiella pneumonia UTI and sepsis, she is hemodynamically stable today, not requiring any pressors, patient underwent cardiac catheterization today, she was found to have severe flow-limiting disease in the LAD and there was intermediate disease documented to be nonflow limiting involving the ramus intermedius and she was noted to have elevated left-sided filling pressures. Cardiology is planning staged PCI of the LAD given the fact that she reached her maximum amount of contrast. Patient does not seem to be in any distress WBC count is 8.6 hemoglobin 8.8 PTT is 49.8 electrolytes are normal BUN is 34 creatinine 1.06 Seen today on 10/15/2024, patient remains in the ICU, underwent cardiac catheteri zation yesterday, results as noted above patient may have to go for stenting of LAD today. Patient received fluids yesterday after her cardiac catheterization, however apparently she developed shortness of breath/acute pulmonary edema, today she is receiving diuretics, and patient did not use her BiPAP last night, will try to start her on BiPAP at bedside to use when she goes to bed tonight. Or she could use it as needed. WBC count is 7.9 hemoglobin 9.3 electrolytes are normal renal profile is normal BUN is 31 creatinine 0.86 Objective - Vital Signs Vital signs: Vital Signs Temp 98.1 F 10/15/24 08:00 Pulse 63 10/15/24 11:00 Resp 222 H 10/15/24 11:00 BP 103/83 10/15/24 11:00 Pulse Ox 94 L 10/15/24 11:00 FiO2 35 10/13/24 19:00 Intake & Output 10/14/24 10/15/24 10/15/24 18:59 06:59 18:59 Intake Total 1128.94 350 Output Total 525 1025 Balance 603.94 -675 Weight 88 kg Intake: IV 919.5 350 0.9 KVO 20 Ertapenem 1 gm In Sodium 50 Chloride 0.9% 50 ml @ 100 mls/hr IVPB DAILY [facility] Rx #:[id number] Sodium Chloride 0.9% 1, 450 300 000 ml @ 75 mls/hr IV . [id number] [facility] Rx#:[id number] Sodium Chloride 0.9% 1, 247.5 000 ml In Empty Bag 1 bag @ 1 ML/KG/HR 82.5 mls/hr IV .Q12H8M [facility] Rx#: [id number] Intake, IV Titration 209.44 Amount Heparin Sod,Pork in 0.45% 209.44 NaCl 25,000 unit In 0.45 % NaCl 1 250ml.bag @ 12 UNITS/KG/HR 9.9 mls/hr IV .Q24H [facility] Rx#:[id number] Output: Urine 525 1025 Other: Voiding Method Indwelling Catheter Indwelling Catheter ABP, PAP, CO, CI - Last Documented Arterial Blood Pressure 146/59 - Exam GENERAL: Revealed 74-year-old female in no distress, on 2 L nasal cannula HEENT: Head is atraumatic, normocephalic. NECK: Supple, no JVD LUNGS: Fine crackles at the bases no rhonchi no wheezes HEART: S1-S2 audible 2/6 systolic murmur throughout the precordium ABDOMEN: Soft, nontender, no megaly no rebound no guarding EXTREMITIES: No edema, no clubbing, no cyanosis. Neuro: Alert oriented x 3 no gross focal neurologic deficit Psychiatric: Normal mood affect and no mental status examination Skin: No rashes - Labs CBC & Chem 7: 10/15/24 07:03 10/15/24 07:03 Labs: Abnormal Lab Results - Last 24 Hours (Table) 10/14/24 10/14/24 10/14/24 Range/Units 04:48 11:30 16:07 RBC (4.10-5.20) 10*6/uL Hgb (12.0-15.0) g/dL Hct (37.2-46.3) % MCHC (32.0-37.0) g/dL Immature Gran # (0.00-0.04) 10*3/uL Lymphocytes # (0.90-5.00) 10*3/uL Eosinophils # (0.04-0.35) 10*3/uL APTT 49.8 H (22.0-30.0) sec BUN (7-17) mg/dL Glucose (74-99) mg/dL POC Glucose (mg/dL) 145 H (70-110) mg/dL Calcium (8.4-10.2) mg/dL C-Reactive Protein 18.4 H (<1.0) mg/dL Vitamin B12 1683.0 H (200.0-944.0) pg/mL 10/14/24 10/15/24 10/15/24 Range/Units 20:17 06:16 07:03 RBC 3.09 L (4.10-5.20) 10*6/uL Hgb 9.3 L (12.0-15.0) g/dL Hct 29.9 L (37.2-46.3) % MCHC 31.1 L (32.0-37.0) g/dL Immature Gran # 0.20 H (0.00-0.04) 10*3/uL Lymphocytes # 0.63 L (0.90-5.00) 10*3/uL Eosinophils # 0.00 L (0.04-0.35) 10*3/uL APTT (22.0-30.0) sec BUN (7-17) mg/dL Glucose (74-99) mg/dL POC Glucose (mg/dL) 215 H 160 H (70-110) mg/dL Calcium (8.4-10.2) mg/dL C-Reactive Protein (<1.0) mg/dL Vitamin B12 (200.0-944.0) pg/mL 10/15/24 10/15/24 Range/Units 07:03 11:17 RBC (4.10-5.20) 10*6/uL Hgb (12.0-15.0) g/dL Hct (37.2-46.3) % MCHC (32.0-37.0) g/dL Immature Gran # (0.00-0.04) 10*3/uL Lymphocytes # (0.90-5.00) 10*3/uL Eosinophils # (0.04-0.35) 10*3/uL APTT (22.0-30.0) sec BUN 31 H (7-17) mg/dL Glucose 149 H (74-99) mg/dL POC Glucose (mg/dL) 199 H (70-110) mg/dL Calcium 6.9 L (8.4-10.2) mg/dL C-Reactive Protein (<1.0) mg/dL Vitamin B12 (200.0-944.0) pg/mL Microbiology - Last 24 Hours (Table) 10/11/24 00:15 Blood Culture - Preliminary Blood Assessment and Plan Assessment: Impression: Acute urinary tract infection secondary to Klebsiella pneumoniae with sepsis and septic shock Acute anion gap metabolic acidosis, resolved secondary to sepsis Acute kidney injury/acute tubular necrosis secondary to sepsis and septic shock Significant coronary artery disease as noted on cardiac catheterization today patient has been known to have previous history of LAD disease from 2019 Obstructive sleep apnea syndrome History of adrenal insufficiency History of obstructive sleep apnea syndrome, patient has her own CPAP at bedside Obesity Dyslipidemia Benign essential hypertension History of paroxysmal atrial fibrillation Recommendation: Diurese today since the patient developed pulmonary edema after fluid boluses given to the patient after cardiac catheterization Patient to go for stent placement today Continue present supportive care measures Continue hydrocortisone eventually to go back on her usual dose of hydrocortisone patient was given stress doses on her initial presentation Patient to use her own CPAP as needed Continue BuSpar and Wellbutrin Continue Invanz/antibiotics/UTI Will continue to follow Time with Patient: Less than 30
[2024-10-15] MEDS: LIDOCAINE 1% INJ 10MG/ML (30 ML VIAL-PF) SQ ONE (13:10)
[2024-10-15] MEDS: TICAGRELOR 90 MG TAB PO ONE (13:13)
[2024-10-15] MEDS: fentaNYL (PF) 50 MCG/1 ML VIAL IVP ONE (13:13)
[2024-10-15] MEDS: MIDAZOLAM 2 MG/2 ML VIAL IVP ONE (13:13)
[2024-10-15] MEDS: SODIUM CHLORIDE 0.9% 250 ML IV ONE (13:14)
[2024-10-15] MEDS: HEPARIN SODIUM 1,000 UN/ML (10ML VL) IVP ONE (13:14)
[2024-10-15] MEDS: IOPAMIDOL-370 100ML BTL INJ ONE (13:39)
[2024-10-15] MEDS ORDERED: ZOLPIDEM 5 MG TAB PO PRN (13:45)
[2024-10-15] MEDS ORDERED: MAG HYDROX/AL HYDROX/SIMETH 30 ML CUP PO PRN (13:45)
[2024-10-15] MEDS ORDERED: RX INFO: IV CONTRAST WAS GIVEN 1 EACH MISC MISCELLANE PRN (13:45)
[2024-10-15] MEDS ORDERED: NITROGLYCERIN SL TABS 0.4 MG TAB SUBLINGUAL PRN (13:45)
[2024-10-15] MEDS ORDERED: ATROPINE SULFATE 0.1 MG/ML 10ML SYRINGE IV PRN (13:45)
--- NOTE | 2024-10-15 13:49 | P.PCN ---
Date of Procedure: 10/15/24 Operative Findings: PERCUTANEOUS CORONARY INTERVENTION Performing physician Warren Rosenberg M.D. Procedure Performed: 1. Successful stenting of the mid LAD using 4.5 x 28 mm Xience drug-eluting stent with an excellent angiographic results. 2. Adjunctive use of IVUS and lithotripsy balloon 3. Ultrasound-guided access of the left common femoral artery and selective left common femoral artery angiogram Indication: Acute non-ST ovation myocardial infarction Approach: Left common femoral artery Complications: None Level of Sedation: Moderate with a sedation length of 31 minutes Procedure Discussion: Please refer to diagnostic heart catheterization was performed yesterday. The left common femoral artery was cannulated using micropuncture technique under ultrasound guidance a micropuncture wire passed easily then I placed a 6 Polish 11 cm sheath at the left common femoral artery which was subsequently exchanged into a 23 cm sheath. After that I did start anticoagulation using heparin with continuous ACT monitoring. Subsequently I did engage the left main using an EBU 3.75 guiding catheter with the left anterior descending artery was wired using a run-through wire. IVUS was performed only to the proximal LAD because I could not advance the IVUS beyond the proximal LAD and that showed artery about 4 to 5 mm in diameter with a calcified vessel at that point I placed the GuideLiner and I advanced a 4.0 x 12 mm lithotripsy balloon and did balloon angioplasty of the mid LAD subsequently followed by placing 4.5 x 28 mm stent which was postdilated using 5 mm NC balloon with final angiogram showing excellent angiographic results and the procedure was completed with no complication were IVUS also was performed and showed that the stent was well opposed and well-expanded Postprocedure Management: 1. Dual antiplatelet therapy using aspirin and Brilinta 2. Aggressive cholesterol control 3. Risk factors modification
[2024-10-15] MEDS: FOLIC ACID 1 MG TAB PO SCH (14:34)
[2024-10-15] MEDS: SODIUM CHLORIDE 0.9% 1,000 ML in EMPTY BAG 1 BAG IV SCH (14:35)
--- NOTE | 2024-10-15 17:00 | P.PN ---
Subjective Progress Note Date: 10/15/24 Patient was seen for a follow-up. Patient's was present by the bedside. Patient states that she is breathing easier, still with blurred vision. No new neurological symptoms. Patient appears somewhat pale, slightly short of breath and slightly delirious. Objective - Vital Signs Vital signs: Vital Signs Temp 98.1 F 10/15/24 08:00 Pulse 63 10/15/24 11:00 Resp 222 H 10/15/24 11:00 BP 103/83 10/15/24 11:00 Pulse Ox 94 L 10/15/24 11:00 FiO2 35 10/13/24 19:00 Intake & Output 10/14/24 10/15/24 10/15/24 18:59 06:59 18:59 Intake Total 1128.94 350 Output Total 525 1025 Balance 603.94 -675 Weight 88 kg Intake: IV 919.5 350 0.9 KVO 20 Ertapenem 1 gm In Sodium 50 Chloride 0.9% 50 ml @ 100 mls/hr IVPB DAILY [facility] Rx #:[id number] Sodium Chloride 0.9% 1, 450 300 000 ml @ 75 mls/hr IV . [id number] [facility] Rx#:[id number] Sodium Chloride 0.9% 1, 247.5 000 ml In Empty Bag 1 bag @ 1 ML/KG/HR 82.5 mls/hr IV .Q12H8M [facility] Rx#: [id number] Intake, IV Titration 209.44 Amount Heparin Sod,Pork in 0.45% 209.44 NaCl 25,000 unit In 0.45 % NaCl 1 250ml.bag @ 12 UNITS/KG/HR 9.9 mls/hr IV .Q24H [facility] Rx#:[id number] Output: Urine 525 1025 Other: Voiding Method Indwelling Catheter Indwelling Catheter ABP, PAP, CO, CI - Last Documented Arterial Blood Pressure 146/59 - Exam Patient is alert and awake. Patient's visual acuity is 20/70 right eye, and 20/25 left eye. Rest of the examination is unchanged. - Labs CBC & Chem 7: 10/15/24 07:03 10/15/24 07:03 Labs: Abnormal Lab Results - Last 24 Hours (Table) 10/14/24 10/14/24 10/14/24 Range/Units 04:48 11:30 16:07 RBC (4.10-5.20) 10*6/uL Hgb (12.0-15.0) g/dL Hct (37.2-46.3) % MCHC (32.0-37.0) g/dL Immature Gran # (0.00-0.04) 10*3/uL Lymphocytes # (0.90-5.00) 10*3/uL Eosinophils # (0.04-0.35) 10*3/uL APTT 49.8 H (22.0-30.0) sec BUN (7-17) mg/dL Glucose (74-99) mg/dL POC Glucose (mg/dL) 145 H (70-110) mg/dL Calcium (8.4-10.2) mg/dL C-Reactive Protein 18.4 H (<1.0) mg/dL Vitamin B12 1683.0 H (200.0-944.0) pg/mL 10/14/24 10/15/24 10/15/24 Range/Units 20:17 06:16 07:03 RBC 3.09 L (4.10-5.20) 10*6/uL Hgb 9.3 L (12.0-15.0) g/dL Hct 29.9 L (37.2-46.3) % MCHC 31.1 L (32.0-37.0) g/dL Immature Gran # 0.20 H (0.00-0.04) 10*3/uL Lymphocytes # 0.63 L (0.90-5.00) 10*3/uL Eosinophils # 0.00 L (0.04-0.35) 10*3/uL APTT (22.0-30.0) sec BUN (7-17) mg/dL Glucose (74-99) mg/dL POC Glucose (mg/dL) 215 H 160 H (70-110) mg/dL Calcium (8.4-10.2) mg/dL C-Reactive Protein (<1.0) mg/dL Vitamin B12 (200.0-944.0) pg/mL 10/15/24 10/15/24 Range/Units 07:03 11:17 RBC (4.10-5.20) 10*6/uL Hgb (12.0-15.0) g/dL Hct (37.2-46.3) % MCHC (32.0-37.0) g/dL Immature Gran # (0.00-0.04) 10*3/uL Lymphocytes # (0.90-5.00) 10*3/uL Eosinophils # (0.04-0.35) 10*3/uL APTT (22.0-30.0) sec BUN 31 H (7-17) mg/dL Glucose 149 H (74-99) mg/dL POC Glucose (mg/dL) 199 H (70-110) mg/dL Calcium 6.9 L (8.4-10.2) mg/dL C-Reactive Protein (<1.0) mg/dL Vitamin B12 (200.0-944.0) pg/mL Microbiology - Last 24 Hours (Table) 10/11/24 00:15 Blood Culture - Preliminary Blood Assessment and Plan Assessment: * Blurred vision right eye, worse than baseline, unclear cause. Patient has moderate right carotid artery stenosis. 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 Patient does have history of diabetes, rule out diabetic retinopathy or other ocular pathology. Doubt temporal arteritis, with normal ESR, although CRP is elevated. * Bilateral proptosis. * Metabolic encephalopathy * Acute UTI secondary to Klebsiella pneumonia with sepsis and septic shock * Acute kidney injury * History of paroxysmal atrial fibrillation * Non-STEMI, status postcardiac cath 10/14/2024 showing severe flow-limiting disease in mid LAD * History of migraine headaches, recently worse. * Obstructive sleep apnea * History of adrenal insufficiency * Hypertension * Diabetes * Coronary artery disease Plan: * Carotid Doppler revealed 50 to 69% stenosis of the right carotid bifurcation. Less than 50% stenosis of the left carotid bifurcation. Antegrade flow in both vertebral arteries. * Interventional cardiology on board. May be considered for right ICA stenting. * ESR 2, CRP 18.4/<1.0. Low likelihood of temporal arteritis with normal ESR. CRP could be elevated from other medical conditions. * Avoid hypotension. * Consult ophthalmology consultation rule out ocular intrinsic pathology. * B12 1683, folate 6.50. Patient started on folate replacement. * Hemoglobin A1c 7.5. Recommend optimize control of diabetes to target A1c <7.0. * Lipid panel with cholesterol 193, LDL 90, HDL 55 and triglycerides 235. Patient on Crestor 5 mg at bedtime. We will start Lipitor 20 mg while in hospital. * TSH normal 1.85. * Continue Eliquis for paroxysmal atrial fibrillation. Continue aspirin 81 mg daily. Cardiology on board. Eliquis currently on hold. Discussed with patient's nurse to check with the cardiology team. * Patient currently on Invanz for UTI. * Patient undergoing stenting of the LAD today. * Other management as per IM/critical care and other multiple specialties on board.
[2024-10-15 17:48] LABS: Glucose,Whole Blood 199 mg/dL (70-110)
[2024-10-15 18:52] LABS: HCT 26.7 % (37.2-46.3); HGB 8.6 g/dL (12.0-15.0); MCH 30.2 pg (27.0-32.0); MCHC 32.2 g/dL (32.0-37.0); MCV 93.7 fL (80.0-97.0); Mean Platelet Volume 10.4 fL (9.5-12.2); Platelet Count 146 10*3/uL (140-440); RBC 2.85 10*6/uL (4.10-5.20); RDW 14.8 % (11.5-14.5); WBC 12.85 10*3/uL (4.50-10.00)
[2024-10-15 19:43] LABS: Glucose,Whole Blood 243 mg/dL (70-110)
[2024-10-15] MEDS: ATORVASTATIN 20 MG TAB PO SCH (20:29)
[2024-10-15] MEDS: TICAGRELOR 90 MG TAB PO SCH (20:29)
--- NOTE | 2024-10-16 06:37 | P.PN ---
Subjective Progress Note Date: 10/15/24 74-year-old female with multiple comorbidities states she has had 1 day of nausea vomiting abdominal pain. Patient is a poor historian states that she has had multiple bouts of emesis that appears to be bilious. She states that she is nauseated. Denies any fever chills or night sweats. States that her chronic back pain feels worse. Blood work completed in ED reveals a WBC of 15.7, hemoglobin of 12.7 and platelet count of 299, sodium of 135, potassium 6.5, BUN/creatinine of 47/4.23, blood glucose of 174, troponin elevated at 1.510 UA reveals large number of leukocyte esterase, WBCs and bacteria EKG reviewed, sinus rhythm, rate 94 bpm, no QRS widening or peaked T waves. Nonspecific mild ST depressions. Hyperkalemia was treated in the ED with a combination of insulin 10 units regular, D50 W amp, 1 g calcium gluconate, concentrated albuterol treatment, as well as 5 g of Lokelma. Patient is admitted to ICU for hypotension likely related to septic shock and is on Levophed 10/13/2024 -- the patient is seen and evaluated in room at bedside; remains in ICU as PCU overflow; patient is more awake and alert and the patient is communicating. -- The patient is afebrile. Hemodynamically stable. -- urine culture is positive for Klebsiella pneumonia and the patient remains on IV Invanz and the choice of antibiotics was made based on her extensive allergies. - white cell count is currently down to 10.04 with a hemoglobin of 8.7 and a platelet count of 185. Sodium is 141, creatinine continues to improve and is down to 1.26 with a BUN of 35. Potassium is at 3.8. Bicarb level is at 28. - patient remains on an insulin drip and she is known to have diabetes mellitus maintained on insulin pump on an outpatient basis. Plan is to to transition this patient to long-acting insulin with Lantus. The patient is also on stress dose hydrocortisone. This was given to her due to her underlying chronic adrenal sufficiency 10/14/2024 Patient is seen in follow-up in the ICU being followed by multiple consultations including cardiology and is currently at cardiac catheterization official report. Patient is continued on antibiotics for urinary tract infection with Klebsiella in the form of Invanz at this time. Will follow-up on repeat labs in a.m. 10/15/2024 Patient is seen in follow-up being followed by cardiology scheduled to undergo surgical intervention of the LAD with Dr. Rosenberg today and is tentatively planning for stenting of the LAD and will await official report. Patient is extremely anxious about the procedure with family at bedside comforting her. Patient is afebrile and denies chest pain although does report some shortness of breath. Patient currently n.p.o. and diet will be resumed once cleared by cardiology. Recommend repeat labs in the a.m. as white count was mildly elevated at 12 today although possibly reactive. Review of systems: Constitutional: No reports of fatigue, fever, or chills, reports to feeling anxious about procedure Cardiovascular: No reports of chest pain or palpitations Respiratory: No reports of worsening shortness of breath GI: No reports of nausea, vomiting, or diarrhea : No reports of dysuria or retention Neurovascular: reports of generalized weakness All medications have been reviewed Physical exam: Gen: This is a 74-year-old female who is awake, alert and oriented x 2, anxious, well-developed, ill-appearing, obese, elderly appearing HEENT: Head is atraumatic, normocephalic. Pupils equal, round. Sclerae is anicteric. NECK: Supple. No JVD. No lymphadenopathy. No thyromegaly. LUNGS: Diminished breath sounds bilaterally with no wheezes or rhonchi. No intercostal retractions. HEART: S1, S2 are muffled ABDOMEN: Soft. Obese bowel sounds are present. No masses. No tenderness. EXTREMITIES: No pedal edema. No calf tenderness. NEUROLOGICAL: Patient is awake, alert and oriented x 2. Diffusely weak Assessment: 1. UTI/sepsis/septic shock, present on admission, urine culture showing Klebsiella 2. Acute renal failure; likely prerenal azotemia 3. Critical hyperkalemia, improving 4. elevated troponin; likely related to acute renal failure and septic shock; patient does have history of nonobstructive coronary artery disease, status post cardiac catheterization and scheduled to undergo PCI intervention and/or stenting of the LAD with Dr. Rosenberg today 10/15/2024 5. Paroxysmal atrial fibrillation; patient is currently in NSR; anticoagulated with Eliquis 6. Hypertension; antihypertensive medications remain on hold given septic shock; we will resume once patient is improved 7. Hyperlipidemia 8. Adrenal insufficiency; patient is maintained on Solu-Cortef 9. COPD; not in exacerbation; continue with home inhaler therapy 10. Obesity with a BMI 37.9 GI prophylaxis DVT prophylaxis; SCD/Eliquis CODE STATUS; full code Plan: Patient is continued in the ICU although as a 3 S. overflow once a bed becomes available continued on telemetry monitoring consultations following. Cardiology following and patient underwent cardiac catheterization and is scheduled to undergo PCI stenting of the LAD with Dr. Rosenberg today 10/15/2024. Will await official report Patient is continued on IV Invanz with Klebsiella in the urine Follow-up on repeat labs Patient remains on Cortef with history of adrenal insufficiency Recommend PT/OT therapy evaluation Family at bedside with questions and concerns that were answered to the best of our ability The impression and plan of care has been dictated by Yecenia Horan, Nurse Practitioner as directed. Dr. Pascale MD I have performed a history and examination and MDM of this patient, discussed the same with the dictator, and agree with the dictator's assessment and plan as written ,documented as a scribe. Based on total visit time, I have performed more than 50% of the visit. Objective - Vital Signs Vital signs: Vital Signs Temp 98.9 F 10/16/24 04:00 Pulse 49 L 10/16/24 06:00 Resp 20 10/16/24 06:00 BP 121/57 10/16/24 06:00 Pulse Ox 95 10/16/24 06:00 FiO2 40 10/15/24 16:30 Intake & Output 10/15/24 10/15/24 10/16/24 06:59 18:59 06:59 Intake Total 750 605 Output Total 2625 455 Balance -1875 150 Intake: IV 750 105 0.9 KVO 105 Ertapenem 1 gm In Sodium 50 Chloride 0.9% 50 ml @ 100 mls/hr IVPB DAILY [facility] Rx #:[id number] Sodium Chloride 0.9% 1, 600 000 ml @ 75 mls/hr IV . [id number] [facility] Rx#:[id number] Oral 500 Output: Urine 2625 455 Other: Voiding Method Indwelling Catheter Indwelling Catheter Indwelling Catheter # Bowel Movements 1 ABP, PAP, CO, CI - Last Documented Arterial Blood Pressure 146/77 - Labs CBC & Chem 7: 10/15/24 18:42 10/15/24 07:03 Labs: Abnormal Lab Results - Last 24 Hours (Table) 10/15/24 10/15/24 10/15/24 Range/Units 07:03 07:03 11:17 WBC (4.50-10.00) 10*3/uL RBC 3.09 L (4.10-5.20) 10*6/uL Hgb 9.3 L (12.0-15.0) g/dL Hct 29.9 L (37.2-46.3) % MCHC 31.1 L (32.0-37.0) g/dL Immature Gran # 0.20 H (0.00-0.04) 10*3/uL Lymphocytes # 0.63 L (0.90-5.00) 10*3/uL Eosinophils # 0.00 L (0.04-0.35) 10*3/uL BUN 31 H (7-17) mg/dL Glucose 149 H (74-99) mg/dL POC Glucose (mg/dL) 199 H (70-110) mg/dL Calcium 6.9 L (8.4-10.2) mg/dL 10/15/24 10/15/24 10/15/24 Range/Units 17:47 18:42 19:42 WBC 12.85 H (4.50-10.00) 10*3/uL RBC 2.85 L (4.10-5.20) 10*6/uL Hgb 8.6 L (12.0-15.0) g/dL Hct 26.7 L (37.2-46.3) % MCHC (32.0-37.0) g/dL Immature Gran # (0.00-0.04) 10*3/uL Lymphocytes # (0.90-5.00) 10*3/uL Eosinophils # (0.04-0.35) 10*3/uL BUN (7-17) mg/dL Glucose (74-99) mg/dL POC Glucose (mg/dL) 199 H 243 H (70-110) mg/dL Calcium (8.4-10.2) mg/dL
[2024-10-16 06:44] LABS: Glucose,Whole Blood 310 mg/dL (70-110)
[2024-10-16 07:21] LABS: African American GFR (CKD) 75 (>60 ml/min/1.73 sqM); Anion Gap 6 mmol/L; Blood Urea Nitrogen 27 mg/dL (7-17); Calcium 6.8 mg/dL (8.4-10.2); Carbon Dioxide 33 mmol/L (22-30); Chloride 99 mmol/L (98-107); Glucose 256 mg/dL (74-99); Non-African American GFR(CKD) 65 (>60 ml/min/1.73 sqM); Potassium 3.3 mmol/L (3.5-5.1); Sodium 138 mmol/L (137-145)
[2024-10-16 08:35] LABS: HCT 24.1 % (37.2-46.3); HGB 7.7 g/dL (12.0-15.0); MCH 29.8 pg (27.0-32.0); MCV 93.4 fL (80.0-97.0); Mean Platelet Volume 10.3 fL (9.5-12.2); Platelet Count 185 10*3/uL (140-440); RBC 2.58 10*6/uL (4.10-5.20); RDW 14.7 % (11.5-14.5); WBC 10.61 10*3/uL (4.50-10.00)
[2024-10-16] MEDS: POTASSIUM CHLORIDE ER 20 MEQ TAB.ER PO SCH ×2 (09:07→18:28)
--- NOTE | 2024-10-16 11:00 | P.PN ---
Subjective Progress Note Date: 10/16/24 Principal diagnosis: Hospital course: Patient is a 74-year-old female with past medical history of CAD hypertension dyslipidemia type 2 diabetes obstructive sleep apnea, atrial insufficiency, thoracic aortic aneurysm, paroxysmal atrial fibrillation known to Dr. Sharma. She was last hospitalized in July 2024 with urinary tract infection found to have Klebsiella pneumonia. This time she presented to the hospital because of concerns of UTI. On admission she had evidence of septic shock with gram- negative bacteremia along with evidence of MARIO with creatinine of 4.3 along with elevated troponin of 1.5 without oriented pattern. She also had anion gap metabolic acidosis with bicarb of 6. Currently she is being managed in ICU for shock state. She was previously managed on IV pressors. With fluid resuscitation and antibiotics her hemodynamics has improved and she has been weaned off pressors. Currently she is borderline hypertensive. This morning she was complaining of some substernal chest heaviness for which cardiology was consulted. EKG shows sinus rhythm with ST depressions in lateral leads with elevations in V1 and aVR. Prior cardiac testing: Cardiac catheterization 2018 showed intermediate disease involving proximal LAD with 60% disease and aneurysm formation Echo from August 2022 shows an EF of 60%, moderate MR, mild AR Yesterday while being on IV heparin drip and IV nitro drip she complained of some blurry vision and some headache. For this nitroglycerin and heparin drip was discontinued and we did a CT head which did not show any evidence of intracranial hemorrhage or any acute intracranial process. And heparin drip was resumed but kept her IV nitroglycerin off because of headache. 10/14/24: Patient seen and examined at bedside today. She continues to be in the ICU. No new complaints today. Pulse 62 bpm, BP 112/62 WBC 8.67, hemoglobin 8.8, APTT 40, sodium 145, potassium 4.1, BUN 34, creatinine 1.06 Echocardiogram obtained today shows EF 55 to 60%, RVSP 31, mild to moderate tricuspid regurgitation 10/15/24: Patient evaluated at bedside today. She reports shortness of breath and is anxious about the procedure. Patient underwent cardiac catheterization yesterday that showed severe disease documented to be flow-limiting involving the mid LAD, intermediate disease documented to be nonflow limiting involving the ramus intermedius, elevated left-sided filling pressure. Patient is also worried about her blurry vision, Neurology is following and obtained Carotid Doppler study. BP 146/84, P 60 bpm, SpO2 96% on 2L oxygen via nasal cannula WBC 7.93, hemoglobin 9.3, potassium 4.5, creatinine 0.86, CRP 18.4 Carotid Doppler study shows 50 to 69% stenosis on the right side and less than 50% stenosis on the left side 10/16/24: Patient seen and examined at bedside today. She denies any acute complaints. Patient underwent PCI yesterday, successful stenting of the mid LAD using 4.5 x 28 mm Xience drug-eluting stent with an excellent angiographic results. Patient has a hematoma. Opthalmology consulted by neurology for blurry vision. BP 139/88, Pulse 60 bpm WBC 10.61, hemoglobin 7.7, potassium 3.3, creatinine 0.88, BUN 27 Review of systems: Pertinent positives and negatives as discussed in HPI, a complete review of systems was performed and all other systems are negative. Physical examination: Vital signs reviewed GENERAL: This is a 74-year-old obese female, not in acute distress HEENT: Head is atraumatic, normocephalic. NECK: Supple, no JVD LUNGS: mild crackles audible in bilateral lung hinds HEART: S1-S2 audible ABDOMEN: Soft, nontender EXTREMITIES: No edema Neuro: Alert, oritented, no focal deficits. Detailed neuro exam was not performed. Assessment: Gram-negative septicemia with UTI Septic shock Anion gap metabolic acidosis MARIO, resolving NSTEMI, S/p cardiac cath 10/14/24 showing severe flow limiting disease in mid LAD Prior history of CAD with intermediate 60% disease in proximal LAD from 2019 History of paroxysmal atrial fibrillation History of renal insufficiency Obstructive sleep apnea Obesity Plan: Started on Brilinta 90 mg PO BID Continue aspirin 81, amlodipine 10, lipitor 20 Continue Lasix 40 mg IV daily Continue metoprolol 50 twice daily Start Eliquis tomorrow if hemoglobin is stable Monitor hemoglobin levels, kidney function and urine output. Dictation was produced using [employer] dictation software. please excuse any gra mmatical, word or spelling errors. Servando Lechuga MD PGY-1 IM I have seen and evaluated the patient today. Discussed with the resident and agree with the residents finding and plan as documented in the resident's note. Objective - Vital Signs Vital signs: Vital Signs Temp 97.9 F 10/16/24 08:00 Pulse 59 L 04/30/25 09:00 Resp 20 10/16/24 09:00 BP 137/99 10/16/24 09:00 Pulse Ox 100 10/16/24 09:00 FiO2 40 10/15/24 16:30 Intake & Output 10/15/24 10/16/24 10/16/24 18:59 06:59 18:59 Intake Total 750 605 80 Output Total 2625 455 120 Balance -1875 150 -40 Intake: IV 750 105 80 0.9 KVO 105 30 Ertapenem 1 gm In Sodium 50 50 Chloride 0.9% 50 ml @ 100 mls/hr IVPB DAILY [facility] Rx #:[id number] Sodium Chloride 0.9% 1, 600 000 ml @ 75 mls/hr IV . [id number] [facility] Rx#:[id number] Oral 500 Output: Urine 2625 455 120 Other: Voiding Method Indwelling Catheter Indwelling Catheter # Bowel Movements 1 ABP, PAP, CO, CI - Last Documented Arterial Blood Pressure 146/77 - Labs CBC & Chem 7: 10/16/24 06:52 10/16/24 06:52 Labs: Abnormal Lab Results - Last 24 Hours (Table) 10/15/24 10/15/24 10/15/24 Range/Units 11:17 17:47 18:42 WBC 12.85 H (4.50-10.00) 10*3/uL RBC 2.85 L (4.10-5.20) 10*6/uL Hgb 8.6 L (12.0-15.0) g/dL Hct 26.7 L (37.2-46.3) % Potassium (3.5-5.1) mmol/L Carbon Dioxide (22-30) mmol/L BUN (7-17) mg/dL Glucose (74-99) mg/dL POC Glucose (mg/dL) 199 H 199 H (70-110) mg/dL Calcium (8.4-10.2) mg/dL 10/15/24 10/16/24 10/16/24 Range/Units 19:42 06:43 06:52 WBC 10.61 H (4.50-10.00) 10*3/uL RBC 2.58 L (4.10-5.20) 10*6/uL Hgb 7.7 L (12.0-15.0) g/dL Hct 24.1 L (37.2-46.3) % Potassium (3.5-5.1) mmol/L Carbon Dioxide (22-30) mmol/L BUN (7-17) mg/dL Glucose (74-99) mg/dL POC Glucose (mg/dL) 243 H 310 H (70-110) mg/dL Calcium (8.4-10.2) mg/dL 10/16/24 Range/Units 06:52 WBC (4.50-10.00) 10*3/uL RBC (4.10-5.20) 10*6/uL Hgb (12.0-15.0) g/dL Hct (37.2-46.3) % Potassium 3.3 L (3.5-5.1) mmol/L Carbon Dioxide 33 H (22-30) mmol/L BUN 27 H (7-17) mg/dL Glucose 256 H (74-99) mg/dL POC Glucose (mg/dL) (70-110) mg/dL Calcium 6.8 L (8.4-10.2) mg/dL
[2024-10-16 11:25] LABS: Glucose,Whole Blood 318 mg/dL (70-110)
--- NOTE | 2024-10-16 12:00 | P.PN ---
Subjective Progress Note Date: 10/16/24 Principal diagnosis: Acute urinary tract infection with sepsis and septic shock secondary to Klebsiella pneumonia Patient is a 74-year-old female with past medical history significant for hypertension, hyperlipidemia, diabetes mellitus, atrial fibrillation anticoagulated on Eliquis, obstructive sleep apnea with home CPAP, COPD, adrenal insufficiency, and recurrent urinary tract infections. Of note, patient had a recent hospitalization July, for urinary tract infection. Urine culture was remarkable for Klebsiella pneumonia at that time. No further treatment with antibiotics following her hospitalization in July. Presents the emergency department history evening with concerns of UTI. She was also noted to be hypotensive and tachycardic. With elevated WBC count. Workup in the emergency department including CT of the abdomen and pelvis which did not show any suspicious bowel obstructions or ileus. Bilateral renal cysts were noted. No stones or hydronephrosis. Found to be in acute kidney injury/failure. Creatinine 4.23. Urinalysis remarkable for pyuria and bacteriuria. Urine culture was sent. Potassium was critically elevated at 6.5. This was treated in the ED with a combination of insulin 10 units regular, D50 W amp, 1 g calcium gluconate, concentrated albuterol treatment, as well as 5 g of Lokelma. EKG reviewed, sinus rhythm, rate 94 bpm, no QRS widening or peaked T waves. Nonspecific mild ST depressions. She does take lisinopril, Aldactone, as well as, potassium supplements at home. Remaining blood work remarkable for a CBC with a WBC count of 15.7, hemoglobin 12.7, platelets 299. CMP: Sodium 135, potassium 6.5, chloride 105, serum bicarb 10, anion gap 20, BUN 47, creatinine 4.23, glucose 151. Lactic 1.6. LFTs not elevated. Troponin 1.51, probably related to poor renal clearance. Patient is currently being evaluated in the intensive care unit. She is alert and oriented. States over the last week she has had burning with urination accompanied with urinary frequency and right flank pain. Denies any hematuria. No documented fevers but has been chilled. She has been eating and drinking without issue up until 24 to 48 hours prior to ER presentation where she developed some nausea and vomiting with with eating and drinking. Denies hematochezia, melanotic stools, hematemesis. Denies abdominal pain. Mucous membranes appear dry. Blood pressures improved with fluid resuscitation. She has been fluid resuscitated with a total of 2 L normal saline in the ED and continues on normal saline at 130 mL/h. Heart rate is tachycardic. Not requiring any vasopressors at the moment. Empirically covered with Levaquin in the ED. She has multiple medication/antibiotic allergies. Repeat labs are pending. On 10/12/2024, the patient is being seen for a follow-up. The patient is currently off pressors. Hemodynamically stable. Vasopressin has been discontinued. Norepinephrine has been discontinued. Patient remains on a bicarb infusion at rate of 100 cc an hour. Fluid balance is +5.3 L negative patient remains on 3 Suboxone by nasal cannula. The patient's urine culture is showing gram-negative bacillus and the blood culture still pending. The patient remains on IV Invanz. The patient is also on stress dose hydrocortisone. The bicarb infusion will be discontinued the patient will be switched to a normal saline rate of 50 cc an hour. No other significant events overnight. She is awake and alert. Aspirin, Wellbutrin and BuSpar to be resumed. Blood sugars under better control for now. Renal function continues to improve and today's blood work shows a creatinine of 1.8 with a BUN of 37. Sodium is at 140 with a potassium level of 4. Serum bicarb is at 30,. White cell count 11, hemoglobin 9.2 and platelet count of 200. On today's evaluation of 10/13/2024, the patient is awake and alert and the patient is communicating. No hypotension. No pressors. No altered mentation. No chest pain. No pleurisy. No hemoptysis. Urine output is adequate. The patient is afebrile. Hemodynamically stable. Meanwhile, the patient's urine culture is positive for Klebsiella pneumonia and the patient remains on IV Invanz and the choice of antibiotics was made based on her extensive allergies. The white cell count is currently down to 10.04 with a hemoglobin of 8.7 and a platelet count of 185. Sodium is 141, creatinine continues to improve and is down to 1.26 with a BUN of 35. Potassium is at 3.8. Bicarb level is at 28. The patient remains on an insulin drip and she is known to have diabetes mellitus maintained on insulin pump on an outpatient basis. I am going to transition this patient to long-acting insulin with Lantus. The patient is also on stress dose hydrocortisone. This was given to her due to her underlying chronic adrenal sufficiency Seen today on 10/14/2024, patient remains in the ICU as an overflow, she is on 5 L nasal cannula, does not seem to be in distress, remains on Solu-Cortef she is also on Invanz and on Eliquis. Patient is being treated for Klebsiella pneumonia UTI and sepsis, she is hemodynamically stable today, not requiring any pressors, patient underwent cardiac catheterization today, she was found to have severe flow-limiting disease in the LAD and there was intermediate disease documented to be nonflow limiting involving the ramus intermedius and she was noted to have elevated left-sided filling pressures. Cardiology is planning staged PCI of the LAD given the fact that she reached her maximum amount of contrast. Patient does not seem to be in any distress WBC count is 8.6 hemoglobin 8.8 PTT is 49.8 electrolytes are normal BUN is 34 creatinine 1.06 Seen today on 10/15/2024, patient remains in the ICU, underwent cardiac catheteri zation yesterday, results as noted above patient may have to go for stenting of LAD today. Patient received fluids yesterday after her cardiac catheterization, however apparently she developed shortness of breath/acute pulmonary edema, today she is receiving diuretics, and patient did not use her BiPAP last night, will try to start her on BiPAP at bedside to use when she goes to bed tonight. Or she could use it as needed. WBC count is 7.9 hemoglobin 9.3 electrolytes are normal renal profile is normal BUN is 31 creatinine 0.86 Patient was seen today on 10/16/2024, remains in the ICU, patient underwent PCI yesterday, successful stenting of the mid LAD with an excellent angiographic results. However the patient developed a left groin hematoma, did not require any blood transfusion, she did have a drop of 1 g in her hemoglobin. Today the patient is complaining of minimal shortness of breath, no cough, no wheezing, patient did receive fluids yesterday after her cardiac catheterization but she is receiving Lasix this morning. WBC count 10.6 hemoglobin 7.7 electrolytes are normal renal profile is normal potassium is a bit low at 3.3. Objective - Vital Signs Vital signs: Vital Signs Temp 97.9 F 10/16/24 08:00 Pulse 57 L 10/16/24 11:30 Resp 26 H 10/16/24 11:30 BP 136/70 10/16/24 11:30 Pulse Ox 100 10/16/24 11:30 FiO2 40 10/15/24 16:30 Intake & Output 10/15/24 10/16/24 10/16/24 18:59 06:59 18:59 Intake Total 750 605 120 Output Total 2625 455 510 Balance -1875 150 -390 Intake: IV 750 105 120 0.9 KVO 105 70 Ertapenem 1 gm In Sodium 50 50 Chloride 0.9% 50 ml @ 100 mls/hr IVPB DAILY [facility] Rx #:[id number] Sodium Chloride 0.9% 1, 600 000 ml @ 75 mls/hr IV . [id number] [facility] Rx#:[id number] Oral 500 Output: Urine 2625 455 510 Other: Voiding Method Indwelling Catheter Indwelling Catheter # Bowel Movements 1 ABP, PAP, CO, CI - Last Documented Arterial Blood Pressure 146/77 - Exam GENERAL: Revealed 74-year-old female in no distress, on 3 L nasal cannula and O2 sat is 99% HEENT: PERRLA, EOMI, nonicteric no neck masses no JVD, moist mucous membranes. NECK: Supple, no JVD, no stridor. LUNGS: Diminished breath sounds at the bases no crackles rhonchi or wheezes HEART: S1-S2 audible 2/6 systolic murmur throughout the precordium ABDOMEN: Soft, nontender, no megaly no rebound no guarding EXTREMITIES: No edema, no clubbing, no cyanosis. Neuro: Alert oriented x 3 no gross focal neurologic deficit Psychiatric: Normal mood affect and no mental status examination Skin: Left groin hematoma is noted. - Labs CBC & Chem 7: 10/16/24 06:52 10/16/24 06:52 Labs: Abnormal Lab Results - Last 24 Hours (Table) 10/15/24 10/15/24 10/15/24 Range/Units 17:47 18:42 19:42 WBC 12.85 H (4.50-10.00) 10*3/uL RBC 2.85 L (4.10-5.20) 10*6/uL Hgb 8.6 L (12.0-15.0) g/dL Hct 26.7 L (37.2-46.3) % Potassium (3.5-5.1) mmol/L Carbon Dioxide (22-30) mmol/L BUN (7-17) mg/dL Glucose (74-99) mg/dL POC Glucose (mg/dL) 199 H 243 H (70-110) mg/dL Calcium (8.4-10.2) mg/dL 10/16/24 10/16/24 10/16/24 Range/Units 06:43 06:52 06:52 WBC 10.61 H (4.50-10.00) 10*3/uL RBC 2.58 L (4.10-5.20) 10*6/uL Hgb 7.7 L (12.0-15.0) g/dL Hct 24.1 L (37.2-46.3) % Potassium 3.3 L (3.5-5.1) mmol/L Carbon Dioxide 33 H (22-30) mmol/L BUN 27 H (7-17) mg/dL Glucose 256 H (74-99) mg/dL POC Glucose (mg/dL) 310 H (70-110) mg/dL Calcium 6.8 L (8.4-10.2) mg/dL 10/16/24 Range/Units 11:24 WBC (4.50-10.00) 10*3/uL RBC (4.10-5.20) 10*6/uL Hgb (12.0-15.0) g/dL Hct (37.2-46.3) % Potassium (3.5-5.1) mmol/L Carbon Dioxide (22-30) mmol/L BUN (7-17) mg/dL Glucose (74-99) mg/dL POC Glucose (mg/dL) 318 H (70-110) mg/dL Calcium (8.4-10.2) mg/dL Assessment and Plan Assessment: Impression: Acute urinary tract infection secondary to Klebsiella pneumoniae with sepsis and septic shock Acute anion gap metabolic acidosis, resolved secondary to sepsis Acute kidney injury/acute tubular necrosis secondary to sepsis and septic shock Significant coronary artery disease as noted on cardiac catheterization, status post PCI of LAD on 10/15/2024 with successful outcome Obstructive sleep apnea syndrome History of adrenal insufficiency History of obstructive sleep apnea syndrome, patient has her own CPAP at bedside Obesity Dyslipidemia Benign essential hypertension History of paroxysmal atrial fibrillation Small left groin hematoma following cardiac catheterization/PCI/stent placement Recommendation: Continue to monitor in the ICU Intermittently diurese the patient as felt clinically necessary Continue dual antiplatelet therapy Continue present supportive care measures Cut down hydrocortisone to 50 mg IV push every 12 hours Patient to use CPAP/BiPAP as felt necessary Continue BuSpar and Wellbutrin Continue Invanz/antibiotics/UTI, this will be discontinued tomorrow. Will continue to follow Time with Patient: Less than 30
--- NOTE | 2024-10-16 13:25 | P.PN ---
Subjective Progress Note Date: 10/16/24 Patient was seen for a follow-up. Patient's was present by the bedside. Patient is sitting comfortably in the recliner. Her vision has not changed. She can see quite clearly when she closes her right eye. However when she closes the left eye, it is very blurred. She appears more comfortable, and less short of breath. Appears pale. Patient underwent: 1. Successful stenting of the mid LAD using 4.5 x 28 mm Xience drug-eluting stent with an excellent angiographic results. 2. Adjunctive use of IVUS and lithotripsy balloon 3. Ultrasound-guided access of the left common femoral artery and selective left common femoral artery angiogram Objective - Vital Signs Vital signs: Vital Signs Temp 97.9 F 10/16/24 08:00 Pulse 56 L 10/16/24 12:00 Resp 12 10/16/24 12:00 BP 133/79 10/16/24 12:00 Pulse Ox 93 L 10/16/24 12:00 FiO2 40 10/15/24 16:30 Intake & Output 10/15/24 10/16/24 10/16/24 18:59 06:59 18:59 Intake Total 750 605 140 Output Total 2625 455 860 Balance -1875 150 -720 Intake: IV 750 105 140 0.9 KVO 105 90 Ertapenem 1 gm In Sodium 50 50 Chloride 0.9% 50 ml @ 100 mls/hr IVPB DAILY [facility] Rx #:[id number] Sodium Chloride 0.9% 1, 600 000 ml @ 75 mls/hr IV . [id number] [facility] Rx#:[id number] Oral 500 Output: Urine 2625 455 860 Other: Voiding Method Indwelling Catheter Indwelling Catheter # Bowel Movements 1 ABP, PAP, CO, CI - Last Documented Arterial Blood Pressure 146/77 - Exam Patient is alert and awake. Patient's visual acuity is 20/70 right eye, and 20/25 left eye. Rest of the examination is unchanged. - Labs CBC & Chem 7: 10/16/24 06:52 10/16/24 06:52 Labs: Abnormal Lab Results - Last 24 Hours (Table) 10/15/24 10/15/24 10/15/24 Range/Units 17:47 18:42 19:42 WBC 12.85 H (4.50-10.00) 10*3/uL RBC 2.85 L (4.10-5.20) 10*6/uL Hgb 8.6 L (12.0-15.0) g/dL Hct 26.7 L (37.2-46.3) % Potassium (3.5-5.1) mmol/L Carbon Dioxide (22-30) mmol/L BUN (7-17) mg/dL Glucose (74-99) mg/dL POC Glucose (mg/dL) 199 H 243 H (70-110) mg/dL Calcium (8.4-10.2) mg/dL 10/16/24 10/16/24 10/16/24 Range/Units 06:43 06:52 06:52 WBC 10.61 H (4.50-10.00) 10*3/uL RBC 2.58 L (4.10-5.20) 10*6/uL Hgb 7.7 L (12.0-15.0) g/dL Hct 24.1 L (37.2-46.3) % Potassium 3.3 L (3.5-5.1) mmol/L Carbon Dioxide 33 H (22-30) mmol/L BUN 27 H (7-17) mg/dL Glucose 256 H (74-99) mg/dL POC Glucose (mg/dL) 310 H (70-110) mg/dL Calcium 6.8 L (8.4-10.2) mg/dL 10/16/24 Range/Units 11:24 WBC (4.50-10.00) 10*3/uL RBC (4.10-5.20) 10*6/uL Hgb (12.0-15.0) g/dL Hct (37.2-46.3) % Potassium (3.5-5.1) mmol/L Carbon Dioxide (22-30) mmol/L BUN (7-17) mg/dL Glucose (74-99) mg/dL POC Glucose (mg/dL) 318 H (70-110) mg/dL Calcium (8.4-10.2) mg/dL Microbiology - Last 24 Hours (Table) 10/11/24 00:15 Blood Culture - Final Blood Assessment and Plan Assessment: * Blurred vision right eye, worse than baseline, unclear cause. Patient has moderate right carotid artery stenosis. 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 Patient does have history of diabetes, rule out diabetic retinopathy or other ocular pathology. Doubt temporal arteritis, with normal ESR, although CRP is elevated. * Bilateral proptosis. * Metabolic encephalopathy * Acute UTI secondary to Klebsiella pneumonia with sepsis and septic shock * Acute kidney injury * History of paroxysmal atrial fibrillation * Non-STEMI, status postcardiac cath 10/14/2024 showing severe flow-limiting disease in mid LAD, status post stenting 10/15/2024. * History of migraine headaches, recently worse. * Obstructive sleep apnea * History of adrenal insufficiency * Hypertension * Diabetes * Coronary artery disease Plan: * Carotid Doppler revealed 50 to 69% stenosis of the right carotid bifurcation. Less than 50% stenosis of the left carotid bifurcation. Antegrade flow in both vertebral arteries. * Interventional cardiology on board. May be considered for right ICA stenting. * ESR 2, CRP 18.4/<1.0. Low likelihood of temporal arteritis with normal ESR. CRP could be elevated from other medical conditions. * Avoid hypotension. * Await ophthalmology consultation rule out ocular intrinsic pathology. * B12 1683, folate 6.50. Patient started on folate replacement. * Hemoglobin A1c 7.5. Recommend optimize control of diabetes to target A1c <7.0. * Lipid panel with cholesterol 193, LDL 90, HDL 55 and triglycerides 235. Patient on Crestor 5 mg at bedtime. We will start Lipitor 20 mg while in hospital. * TSH normal 1.85. * Continue Eliquis for paroxysmal atrial fibrillation. Continue aspirin 81 mg daily. Cardiology on board. Eliquis currently on hold, because of groin hematoma. * Patient currently on Invanz for UTI. * Other management as per IM/critical care and other multiple specialties on board.
[2024-10-16] MEDS: INSULIN LISPRO (HumaLOG) 100 UNIT/ML 10 mL VL SQ ONE (13:40)
[2024-10-16 14:07] VITALS: BMI 37.8
[2024-10-16 17:19] LABS: Glucose,Whole Blood 192 mg/dL (70-110)
[2024-10-16 18:04] LABS: Basophils # (A) 0.03 10*3/uL (0.00-0.10); Basophils % (A) 0.2 %; HCT 27.3 % (37.2-46.3); HGB 8.7 g/dL (12.0-15.0); Lymphocytes # (A) 0.85 10*3/uL (0.90-5.00); Lymphocytes % (A) 5.5 %; MCH 30.2 pg (27.0-32.0); MCHC 31.9 g/dL (32.0-37.0); MCV 94.8 fL (80.0-97.0); Mean Platelet Volume 10.3 fL (9.5-12.2); Monocytes # (A) 1.16 10*3/uL (0.20-1.00); Monocytes % (A) 7.5 %; Neutrophils # (A) 12.91 10*3/uL (1.80-7.70); Neutrophils % (A) 83.9 %; Platelet Count 244 10*3/uL (140-440); RBC 2.88 10*6/uL (4.10-5.20); RDW 14.7 % (11.5-14.5); WBC 15.39 10*3/uL (4.50-10.00)
[2024-10-16] MEDS ORDERED: Magnesium Replacement Protocol 1 EACH MISC MISCELLANE PRN (19:06)
[2024-10-16 20:00] LABS: Glucose,Whole Blood 259 mg/dL (70-110)
[2024-10-16] MEDS: MAGNESIUM SULFATE-D5W PMX 1 GM in DEXTROSE/WATER 1 100ML.BAG IVPB SCH (20:08)
[2024-10-16] MEDS: INSULIN GLARGINE (LANTUS) 100 UNIT/ML SYR SQ SCH (20:09)
[2024-10-16] MEDS: POTASSIUM CHLORIDE 20 MEQ in WATER FOR INJECTION 1 100ML.BAG IVPB SCH (22:11)
[2024-10-17 05:07] LABS: Basophils # (A) 0.02 10*3/uL (0.00-0.10); Basophils % (A) 0.2 %; Eosinophils # (A) 0.17 10*3/uL (0.04-0.35); Eosinophils % (A) 1.5 %; HCT 24.4 % (37.2-46.3); HGB 7.3 g/dL (12.0-15.0); Lymphocytes # (A) 1.44 10*3/uL (0.90-5.00); Lymphocytes % (A) 12.3 %; MCH 29.2 pg (27.0-32.0); MCHC 29.9 g/dL (32.0-37.0); MCV 97.6 fL (80.0-97.0); Mean Platelet Volume 10.3 fL (9.5-12.2); Monocytes % (A) 9.4 %; Neutrophils # (A) 8.63 10*3/uL (1.80-7.70); Neutrophils % (A) 73.5 %; Platelet Count 203 10*3/uL (140-440); RDW 14.9 % (11.5-14.5); WBC 11.72 10*3/uL (4.50-10.00)
[2024-10-17 05:22] LABS: African American GFR (CKD) 63 (>60 ml/min/1.73 sqM); Anion Gap 2 mmol/L; Blood Urea Nitrogen 23 mg/dL (7-17); Calcium 6.9 mg/dL (8.4-10.2); Carbon Dioxide 38 mmol/L (22-30); Chloride 99 mmol/L (98-107); Glucose 128 mg/dL (74-99); Magnesium 2.1 mg/dL (1.6-2.3); Non-African American GFR(CKD) 55 (>60 ml/min/1.73 sqM); Potassium 3.8 mmol/L (3.5-5.1); Sodium 139 mmol/L (137-145)
[2024-10-17] MEDS: POTASSIUM CHLORIDE 10 MEQ in WATER FOR INJECTION 1 100ML.BAG IVPB SCH (06:52)
[2024-10-17 06:56] LABS: Glucose,Whole Blood 102 mg/dL (70-110)
--- NOTE | 2024-10-17 08:15 | XR ---
EXAMINATION TYPE: XR chest 1V portable DATE OF EXAM: 10/17/2024 5:44 AM COMPARISON: 10/15/2024 CLINICAL INDICATION: Female, 74 years old with history of CHF, , FINDINGS: Heart mildly moderately enlarged. Left subclavian CVC tip mid SVC level. Mild interstitial prominence persists. Some improving aeration at the bilateral lower lungs. IMPRESSION: Residual mild pulmonary vascular congestion but with improving aeration at the lower lungs. [facility], Workstation: [email or web address], 10/17/2024 8:12 AM
--- NOTE | 2024-10-17 08:36 | CDI ---
Documentation Clarification Form Date: 10/15/2024 07:58:00 AM From: Melinda Watson RN CDIS Phone: [phone] Admit Date: 10/10/2024 10:16:00 PM Patient Name: Melissa Pena Visit Number: [id number] Discharge Date: ATTENTION: The Clinical Documentation Specialists (CDI) and [facility] Coding Staff appreciate your assistance in clarifying documentation. Please respond to the clarification below the line at the bottom and electronically sign. The CDI & [facility] Coding staff will review the response and follow-up if needed. Please note: Queries are made part of the Legal Health Record. If you have any questions, please contact the author of this message via ITS. Dr. Juan Joe Hypoxic Respiratory Failure is documented 10/14, Cardiology note which may lack sufficient clinical evidence/support in the medical record. Additional clarification is requested. Patient history/risk factors: 74 year old female presents to the ED with nausea vomiting, abdominal pain. The patient was admitted to the ICU for hypotension. Medical History: Atiral Fibrillation, DM, DVT, HTN, OA and Sleep Apnea / CPAP/ BiPAP. 10/11 Clinical Indicators: 10/11 CXR: Mild cardiomegaly 10/11 07:45: VSS: B/P 64/37, HR 131, Temp 101.1F Axillary, RR 22, SpO2 97% ra 10/11 08:00: RR 32, SpO2 97% 4L nc 10/11, Cardiology Lung examination: Clear to auscultation 10/12 & 10/13, Cardiology Lung examination : Bilateral breath sounds are heard 10/14, Cardiology Lung examination: Mild crackles audible in bilateral lung hinsd. Treatment: 10/11 0800 10/11 1600 4L nc ; 10/11 1600 - 10/14 12:00 3L nc; 10/14 12:00 10/15 2L nc ; 10/11 SoluCortef IV Q8H, After work up and study, please clarify which diagnosis is most appropriate? [ ] Hypoxic Respiratory Failure ruled out [ ] Acute Respiratory Failure is a valid diagnosis as evidenced by the following: [x ] Respiratory Insufficiency [ ] Unable to determine [ ] Other, please specify (Template Last Revised: June 2023) MTDD
[2024-10-17] MEDS: HYDROCORTISONE SUCCINATE 100 MG/2 ML VIAL IV SCH (08:47)
--- NOTE | 2024-10-17 10:10 | CDI ---
Documentation Clarification Form Date: 10/17/2024 08:40:43 AM From: Melinda Watson RN CDIS Phone: [phone] Admit Date: 10/10/2024 10:16:00 PM Patient Name: Melissa Pena Visit Number: [id number] Discharge Date: ATTENTION: The Clinical Documentation Specialists (CDI) and [facility] Coding Staff appreciate your assistance in clarifying documentation. Please respond to the clarification below the line at the bottom and electronically sign. The CDI & [facility] Coding staff will review the response and follow-up if needed. Please note: Queries are made part of the Legal Health Record. If you have any questions, please contact the author of this message via ITS. Doctor: Warren Rosenberg Small left groin hematoma following cardiac catheterization/PCI/stent placement is documented 10/16, Pulmonary note and the patient had Percutaneous coronary intervention, 10/15. Additional clarification is requested regarding the relationship, if any, that exists between the diagnosis and the procedure. History/Risk Factors: Patient history/risk factors: 74 year old female presents to the ED with nausea vomiting, abdominal pain. The patient was admitted to the ICU for hypotension. Medical History: Atrial Fibrillation, DM, DVT, HTN, OA and Sleep Apnea / CPAP/ BiPAP. 10/11 Patients admitting Diagnosis: Sepsis with uti and septic shock, likely type II NSTEMI Post-Operative Diagnosis: Acute non-ST ovation myocardial infarction Procedure performed: 1.Successful stenting of the mid LAD using 4.5 x 28 mm Xience drug-eluting stent with an excellent angiographic results. 2.Adjunctive use of IVUS and lithotripsy balloon 3.Ultrasound-guided access of the left common femoral artery and selective left common femoral artery angiogram Clinical Indicators: 10/16, Pulmonary note: Small left groin hematoma following cardiac catheterization /PCI / stent / placement Treatment: 10/12 4- Heparin 250mls@ 9.9mls/hr Q24H sherlyn, 10/16 Hold Eliquis, monitoring hgb What relationship, if any, exists between the diagnosis of [insert dx] and the procedure: [ ] Left groin hematoma is not clinically significant and not a complication [ ] Left groin hematoma is clinically significant and not a complication [ ] Left groin hematoma is clinically significant and a complication [ ] Other please specify ____ [ ] Unable to determine (Template Last Revised: June 2024) MTDD
--- NOTE | 2024-10-17 10:28 | P.PN ---
Subjective Progress Note Date: 10/16/24 74-year-old female with multiple comorbidities states she has had 1 day of nausea vomiting abdominal pain. Patient is a poor historian states that she has had multiple bouts of emesis that appears to be bilious. She states that she is nauseated. Denies any fever chills or night sweats. States that her chronic back pain feels worse. Blood work completed in ED reveals a WBC of 15.7, hemoglobin of 12.7 and platelet count of 299, sodium of 135, potassium 6.5, BUN/creatinine of 47/4.23, blood glucose of 174, troponin elevated at 1.510 UA reveals large number of leukocyte esterase, WBCs and bacteria EKG reviewed, sinus rhythm, rate 94 bpm, no QRS widening or peaked T waves. Nonspecific mild ST depressions. Hyperkalemia was treated in the ED with a combination of insulin 10 units regular, D50 W amp, 1 g calcium gluconate, concentrated albuterol treatment, as well as 5 g of Lokelma. Patient is admitted to ICU for hypotension likely related to septic shock and is on Levophed 10/13/2024 -- the patient is seen and evaluated in room at bedside; remains in ICU as PCU overflow; patient is more awake and alert and the patient is communicating. -- The patient is afebrile. Hemodynamically stable. -- urine culture is positive for Klebsiella pneumonia and the patient remains on IV Invanz and the choice of antibiotics was made based on her extensive allergies. - white cell count is currently down to 10.04 with a hemoglobin of 8.7 and a platelet count of 185. Sodium is 141, creatinine continues to improve and is down to 1.26 with a BUN of 35. Potassium is at 3.8. Bicarb level is at 28. - patient remains on an insulin drip and she is known to have diabetes mellitus maintained on insulin pump on an outpatient basis. Plan is to to transition this patient to long-acting insulin with Lantus. The patient is also on stress dose hydrocortisone. This was given to her due to her underlying chronic adrenal sufficiency 10/14/2024 Patient is seen in follow-up in the ICU being followed by multiple consultations including cardiology and is currently at cardiac catheterization official report. Patient is continued on antibiotics for urinary tract infection with Klebsiella in the form of Invanz at this time. Will follow-up on repeat labs in a.m. 10/15/2024 Patient is seen in follow-up being followed by cardiology scheduled to undergo surgical intervention of the LAD with Dr. Rosenberg today and is tentatively planning for stenting of the LAD and will await official report. Patient is extremely anxious about the procedure with family at bedside comforting her. Patient is afebrile and denies chest pain although does report some shortness of breath. Patient currently n.p.o. and diet will be resumed once cleared by cardiology. Recommend repeat labs in the a.m. as white count was mildly elevated at 12 today although possibly reactive. 10/16/2024 Patient is seen in follow-up today continues in the ICU as an overflow and had stenting to the mid LAD with cardiology. Patient continues on telemetry monitoring being closely monitored making adjustments accordingly. Patient continues to report visual disturbances more so on the right with blurry vision and ophthalmology has been consulted although pending at this time per neurology. Unsure if there is ophthalmology coverage this week. Patient also continues on IV Invanz for Klebsiella urinary tract infection and will continue for now. Encouraged PT/OT therapy for evaluation as patient is significantly weak and has had prolonged hospitalization. Anticoagulation remains on hold secondary to a groin hematoma. Encourage sitting up in the chair more frequently and increased activity as tolerated. Review of systems: Constitutional: No reports of fatigue, fever, or chills, reports to continuing to have visual disturbances Cardiovascular: No reports of chest pain or palpitations Respiratory: No reports of worsening shortness of breath GI: No reports of nausea, vomiting, or diarrhea : No reports of dysuria or retention Neurovascular: reports of generalized weakness All medications have been reviewed Physical exam: Gen: This is a 74-year-old female who is awake, alert and oriented x 2, anxious, well-developed, ill-appearing, obese, elderly appearing HEENT: Head is atraumatic, normocephalic. Pupils equal, round. Sclerae is anicteric. NECK: Supple. No JVD. No lymphadenopathy. No thyromegaly. LUNGS: Diminished breath sounds bilaterally with no wheezes or rhonchi. No in tercostal retractions. HEART: S1, S2 are muffled ABDOMEN: Soft. Obese bowel sounds are present. No masses. No tenderness. EXTREMITIES: No pedal edema. No calf tenderness. NEUROLOGICAL: Patient is awake, alert and oriented x 2. Diffusely weak Assessment: 1. UTI/sepsis/septic shock, present on admission, urine culture showing Klebsiella 2. Acute renal failure; likely prerenal azotemia, improving 3. Critical hyperkalemia, improving 4. elevated troponin; likely related to acute renal failure and septic shock; patient does have history of nonobstructive coronary artery disease, status post cardiac catheterization and underwent successful stenting of the mid LAD with Dr. Rosenberg 10/15/2024 5. Paroxysmal atrial fibrillation; patient is currently in NSR; anticoagulated with Eliquis, although currently on hold due to hematoma 6. Hypertension; antihypertensive medications remain on hold given septic shock; we will resume once patient is improved 7. Hyperlipidemia 8. Adrenal insufficiency; patient is maintained on Solu-Cortef 9. COPD; not in exacerbation; continue with home inhaler therapy 10. Obesity with a BMI 37.9 11. Generalized weakness with gait dysfunction, recommend PT/OT therapy evaluation GI prophylaxis DVT prophylaxis; SCD/Eliquis CODE STATUS; full code Plan: Patient is continued in the ICU although as a 3 S. overflow once a bed becomes available continued on telemetry monitoring consultations following. Cardiology following and patient underwent cardiac catheterization and successful stenting of the mid LAD with Dr. Rosenberg 10/15/2024. Patient is continued on IV Invanz with Klebsiella in the urine Follow-up on repeat labs Patient remains on Cortef with history of adrenal insufficiency and being weaned Recommend PT/OT therapy evaluation as patient is significantly weak and has had prolonged hospitalization, may benefit from ECF on discharge Neurology following as well and ophthalmology was consulted due to continued blurry vision which is pending at this time. Unsure if we have ophthalmology coverage at this time. Family at bedside with questions and concerns that were answered to the best of our ability The impression and plan of care has been dictated by Yecenia Horan, Nurse Practitioner as directed. Dr. Pascale MD I have performed a history and examination and MDM of this patient, discussed the same with the dictator, and agree with the dictator's assessment and plan as written ,documented as a scribe. Based on total visit time, I have performed more than 50% of the visit. Objective - Vital Signs Vital signs: Vital Signs Temp 97.9 F 10/16/24 08:00 Pulse 56 L 10/16/24 12:00 Resp 12 10/16/24 12:00 BP 133/79 10/16/24 12:00 Pulse Ox 93 L 10/16/24 12:00 FiO2 40 10/15/24 16:30 Intake & Output 10/15/24 10/16/24 10/16/24 18:59 06:59 18:59 Intake Total 750 605 140 Output Total 2625 455 860 Balance -1875 150 -720 Intake: IV 750 105 140 0.9 KVO 105 90 Ertapenem 1 gm In Sodium 50 50 Chloride 0.9% 50 ml @ 100 mls/hr IVPB DAILY [facility] Rx #:[id number] Sodium Chloride 0.9% 1, 600 000 ml @ 75 mls/hr IV . [id number] [facility] Rx#:[id number] Oral 500 Output: Urine 2625 344 860 Other: Voiding Method Indwelling Catheter Indwelling Catheter # Bowel Movements 1 ABP, PAP, CO, CI - Last Documented Arterial Blood Pressure 146/77 - Labs CBC & Chem 7: 10/17/24 03:32 10/17/24 03:32 Labs: Abnormal Lab Results - Last 24 Hours (Table) 10/15/24 10/15/24 10/15/24 Range/Units 17:47 18:42 19:42 WBC 12.85 H (4.50-10.00) 10*3/uL RBC 2.85 L (4.10-5.20) 10*6/uL Hgb 8.6 L (12.0-15.0) g/dL Hct 26.7 L (37.2-46.3) % Potassium (3.5-5.1) mmol/L Carbon Dioxide (22-30) mmol/L BUN (7-17) mg/dL Glucose (74-99) mg/dL POC Glucose (mg/dL) 199 H 243 H (70-110) mg/dL Calcium (8.4-10.2) mg/dL 10/16/24 10/16/24 10/16/24 Range/Units 06:43 06:52 06:52 WBC 10.61 H (4.50-10.00) 10*3/uL RBC 2.58 L (4.10-5.20) 10*6/uL Hgb 7.7 L (12.0-15.0) g/dL Hct 24.1 L (37.2-46.3) % Potassium 3.3 L (3.5-5.1) mmol/L Carbon Dioxide 33 H (22-30) mmol/L BUN 27 H (7-17) mg/dL Glucose 256 H (74-99) mg/dL POC Glucose (mg/dL) 310 H (70-110) mg/dL Calcium 6.8 L (8.4-10.2) mg/dL 10/16/24 Range/Units 11:24 WBC (4.50-10.00) 10*3/uL RBC (4.10-5.20) 10*6/uL Hgb (12.0-15.0) g/dL Hct (37.2-46.3) % Potassium (3.5-5.1) mmol/L Carbon Dioxide (22-30) mmol/L BUN (7-17) mg/dL Glucose (74-99) mg/dL POC Glucose (mg/dL) 318 H (70-110) mg/dL Calcium (8.4-10.2) mg/dL
--- NOTE | 2024-10-17 11:26 | P.PN ---
Subjective Progress Note Date: 10/17/24 Principal diagnosis: Hospital course: Patient is a 74-year-old female with past medical history of CAD hypertension dyslipidemia type 2 diabetes obstructive sleep apnea, atrial insufficiency, thoracic aortic aneurysm, paroxysmal atrial fibrillation known to Dr. Sharma. She was last hospitalized in July 2024 with urinary tract infection found to have Klebsiella pneumonia. This time she presented to the hospital because of concerns of UTI. On admission she had evidence of septic shock with gram- negative bacteremia along with evidence of MARIO with creatinine of 4.3 along with elevated troponin of 1.5 without oriented pattern. She also had anion gap metabolic acidosis with bicarb of 6. Currently she is being managed in ICU for shock state. She was previously managed on IV pressors. With fluid resuscitation and antibiotics her hemodynamics has improved and she has been weaned off pressors. Currently she is borderline hypertensive. This morning she was complaining of some substernal chest heaviness for which cardiology was consulted. EKG shows sinus rhythm with ST depressions in lateral leads with elevations in V1 and aVR. Prior cardiac testing: Cardiac catheterization 2018 showed intermediate disease involving proximal LAD with 60% disease and aneurysm formation Echo from August 2022 shows an EF of 60%, moderate MR, mild AR Yesterday while being on IV heparin drip and IV nitro drip she complained of some blurry vision and some headache. For this nitroglycerin and heparin drip was discontinued and we did a CT head which did not show any evidence of intracranial hemorrhage or any acute intracranial process. And heparin drip was resumed but kept her IV nitroglycerin off because of headache. 10/14/24: Patient seen and examined at bedside today. She continues to be in the ICU. No new complaints today. Pulse 62 bpm, BP 112/62 WBC 8.67, hemoglobin 8.8, APTT 40, sodium 145, potassium 4.1, BUN 34, creatinine 1.06 Echocardiogram obtained today shows EF 55 to 60%, RVSP 31, mild to moderate tricuspid regurgitation 10/15/24: Patient evaluated at bedside today. She reports shortness of breath and is anxious about the procedure. Patient underwent cardiac catheterization yesterday that showed severe disease documented to be flow-limiting involving the mid LAD, intermediate disease documented to be nonflow limiting involving the ramus intermedius, elevated left-sided filling pressure. Patient is also worried about her blurry vision, Neurology is following and obtained Carotid Doppler study. BP 146/84, P 60 bpm, SpO2 96% on 2L oxygen via nasal cannula WBC 7.93, hemoglobin 9.3, potassium 4.5, creatinine 0.86, CRP 18.4 Carotid Doppler study shows 50 to 69% stenosis on the right side and less than 50% stenosis on the left side 10/16/24: Patient seen and examined at bedside today. She denies any acute complaints. Patient underwent PCI yesterday, successful stenting of the mid LAD using 4.5 x 28 mm Xience drug-eluting stent with an excellent angiographic results. Patient has a hematoma. Opthalmology consulted by neurology for blurry vision. BP 139/88, Pulse 60 bpm WBC 10.61, hemoglobin 7.7, potassium 3.3, creatinine 0.88, BUN 27 10/17/24: Patient evaluated at bedside today. Patient started on PD Pulse 72 bpm, BP 110/65 WBC 11.72, hemoglobin 7.3, platelet 203, potassium 3.8, bicarb 38, BUN 23, creatinine 1.01, magnesium 2.1 Chest x-ray shows residual mild pulmonary vascular congestion but with improving aeration at the lower lungs Review of systems: Pertinent positives and negatives as discussed in HPI, a complete review of systems was performed and all other systems are negative. Physical examination: Vital signs reviewed GENERAL: This is a 74-year-old obese female, not in acute distress HEENT: Head is atraumatic, normocephalic. NECK: Supple, no JVD LUNGS: mild crackles audible in bilateral lung hinds HEART: S1-S2 audible ABDOMEN: Soft, nontender EXTREMITIES: No edema Neuro: Alert, oritented, no focal deficits. Detailed neuro exam was not performed. Assessment: Gram-negative septicemia with UTI Septic shock Anion gap metabolic acidosis MARIO, resolving NSTEMI, S/p cardiac cath 10/14/24 showing severe flow limiting disease in mid LAD Prior history of CAD with intermediate 60% disease in proximal LAD from 2019 History of paroxysmal atrial fibrillation History of renal insufficiency Obstructive sleep apnea Obesity Plan: Continue Brilinta 90 mg PO BID Continue aspirin 81, amlodipine 10, lipitor 20 Continue Lasix 40 mg IV daily Continue metoprolol 50 twice daily Start Eliquis tomorrow when hemoglobin is stable Monitor hemoglobin levels, kidney function and urine output. Dictation was produced using [employer] software. please excuse any grammatical, word or spelling errors. Servando Lechuga MD PGY-1 IM I have seen and evaluated the patient today. Discussed with the resident and agree with the residents finding and plan as documented in the resident's note. Objective - Vital Signs Vital signs: Vital Signs Temp 97.6 F 10/17/24 04:00 Pulse 52 L 10/17/24 07:00 Resp 21 10/17/24 07:00 BP 110/65 10/17/24 07:00 Pulse Ox 100 10/17/24 07:00 FiO2 40 10/15/24 16:30 Intake & Output 10/16/24 10/17/24 10/17/24 18:59 06:59 18:59 Intake Total 260 840 20 Output Total 1915 390 15 Balance -1655 450 5 Weight 88 kg 86.4 kg Intake: IV 260 740 20 0.9 KVO 210 240 20 Ertapenem 1 gm In Sodium 50 Chloride 0.9% 50 ml @ 100 mls/hr IVPB DAILY [facility] Rx #:[id number] Magnesium Sulfate-D5w Pmx 200 1 gm In Dextrose/Water 1 100ml.bag @ 100 mls/hr IVPB Q1H [facility] Rx#: [id number] Potassium Chloride 20 meq 300 In Water For Injection 1 100ml.bag @ 50 mls/hr IVPB Q2H [facility] Rx#: [id number] Oral 100 Output: Urine 1915 390 15 Other: Voiding Method Indwelling Catheter Indwelling Catheter # Bowel Movements 1 ABP, PAP, CO, CI - Last Documented Arterial Blood Pressure 146/77 - Labs CBC & Chem 7: 10/17/24 03:32 10/17/24 03:32 Labs: Abnormal Lab Results - Last 24 Hours (Table) 10/16/24 10/16/24 10/16/24 Range/Units 11:24 17:17 17:35 WBC 15.39 H (4.50-10.00) 10*3/uL RBC 2.88 L (4.10-5.20) 10*6/uL Hgb 8.7 L (12.0-15.0) g/dL Hct 27.3 L (37.2-46.3) % MCV (80.0-97.0) fL MCHC 31.9 L (32.0-37.0) g/dL Immature Gran # 0.44 H (0.00-0.04) 10*3/uL Neutrophils # 12.91 H (1.80-7.70) 10*3/uL Lymphocytes # 0.85 L (0.90-5.00) 10*3/uL Monocytes # 1.16 H (0.20-1.00) 10*3/uL Eosinophils # 0.00 L (0.04-0.35) 10*3/uL Potassium (3.5-5.1) mmol/L Carbon Dioxide (22-30) mmol/L BUN (7-17) mg/dL Glucose (74-99) mg/dL POC Glucose (mg/dL) 318 H 192 H (70-110) mg/dL Calcium (8.4-10.2) mg/dL Magnesium (1.6-2.3) mg/dL 10/16/24 10/16/24 10/16/24 Range/Units 17:35 17:35 19:59 WBC (4.50-10.00) 10*3/uL RBC (4.10-5.20) 10*6/uL Hgb (12.0-15.0) g/dL Hct (37.2-46.3) % MCV (80.0-97.0) fL MCHC (32.0-37.0) g/dL Immature Gran # (0.00-0.04) 10*3/uL Neutrophils # (1.80-7.70) 10*3/uL Lymphocytes # (0.90-5.00) 10*3/uL Monocytes # (0.20-1.00) 10*3/uL Eosinophils # (0.04-0.35) 10*3/uL Potassium 3.0 L (3.5-5.1) mmol/L Carbon Dioxide (22-30) mmol/L BUN (7-17) mg/dL Glucose (74-99) mg/dL POC Glucose (mg/dL) 259 H (70-110) mg/dL Calcium (8.4-10.2) mg/dL Magnesium 1.5 L (1.6-2.3) mg/dL 10/16/24 10/17/24 10/17/24 Range/Units 21:21 03:32 03:32 WBC 11.72 H (4.50-10.00) 10*3/uL RBC 2.50 L (4.10-5.20) 10*6/uL Hgb 7.3 L (12.0-15.0) g/dL Hct 24.4 L (37.2-46.3) % MCV 97.6 H (80.0-97.0) fL MCHC 29.9 L (32.0-37.0) g/dL Immature Gran # 0.36 H (0.00-0.04) 10*3/uL Neutrophils # 8.63 H (1.80-7.70) 10*3/uL Lymphocytes # (0.90-5.00) 10*3/uL Monocytes # 1.10 H (0.20-1.00) 10*3/uL Eosinophils # (0.04-0.35) 10*3/uL Potassium 2.9 L (3.5-5.1) mmol/L Carbon Dioxide 38 H (22-30) mmol/L BUN 23 H (7-17) mg/dL Glucose 128 H (74-99) mg/dL POC Glucose (mg/dL) (70-110) mg/dL Calcium 6.9 L (8.4-10.2) mg/dL Magnesium (1.6-2.3) mg/dL Microbiology - Last 24 Hours (Table) 10/11/24 00:15 Blood Culture - Final Blood
[2024-10-17 11:28] LABS: Glucose,Whole Blood 127 mg/dL (70-110)
--- NOTE | 2024-10-17 12:57 | P.PN ---
Subjective Progress Note Date: 10/17/24 Principal diagnosis: Acute urinary tract infection with sepsis and septic shock secondary to Klebsiella pneumonia Patient is a 74-year-old female with past medical history significant for hypertension, hyperlipidemia, diabetes mellitus, atrial fibrillation anticoagulated on Eliquis, obstructive sleep apnea with home CPAP, COPD, adrenal insufficiency, and recurrent urinary tract infections. Of note, patient had a recent hospitalization July, for urinary tract infection. Urine culture was remarkable for Klebsiella pneumonia at that time. No further treatment with antibiotics following her hospitalization in July. Presents the emergency department history evening with concerns of UTI. She was also noted to be hypotensive and tachycardic. With elevated WBC count. Workup in the emergency department including CT of the abdomen and pelvis which did not show any suspicious bowel obstructions or ileus. Bilateral renal cysts were noted. No stones or hydronephrosis. Found to be in acute kidney injury/failure. Creatinine 4.23. Urinalysis remarkable for pyuria and bacteriuria. Urine culture was sent. Potassium was critically elevated at 6.5. This was treated in the ED with a combination of insulin 10 units regular, D50 W amp, 1 g calcium gluconate, concentrated albuterol treatment, as well as 5 g of Lokelma. EKG reviewed, sinus rhythm, rate 94 bpm, no QRS widening or peaked T waves. Nonspecific mild ST depressions. She does take lisinopril, Aldactone, as well as, potassium supplements at home. Remaining blood work remarkable for a CBC with a WBC count of 15.7, hemoglobin 12.7, platelets 299. CMP: Sodium 135, potassium 6.5, chloride 105, serum bicarb 10, anion gap 20, BUN 47, creatinine 4.23, glucose 151. Lactic 1.6. LFTs not elevated. Troponin 1.51, probably related to poor renal clearance. Patient is currently being evaluated in the intensive care unit. She is alert and oriented. States over the last week she has had burning with urination accompanied with urinary frequency and right flank pain. Denies any hematuria. No documented fevers but has been chilled. She has been eating and drinking without issue up until 24 to 48 hours prior to ER presentation where she developed some nausea and vomiting with with eating and drinking. Denies hematochezia, melanotic stools, hematemesis. Denies abdominal pain. Mucous membranes appear dry. Blood pressures improved with fluid resuscitation. She has been fluid resuscitated with a total of 2 L normal saline in the ED and continues on normal saline at 130 mL/h. Heart rate is tachycardic. Not requiring any vasopressors at the moment. Empirically covered with Levaquin in the ED. She has multiple medication/antibiotic allergies. Repeat labs are pending. On 10/12/2024, the patient is being seen for a follow-up. The patient is currently off pressors. Hemodynamically stable. Vasopressin has been discontinued. Norepinephrine has been discontinued. Patient remains on a bicarb infusion at rate of 100 cc an hour. Fluid balance is +5.3 L negative patient remains on 3 Suboxone by nasal cannula. The patient's urine culture is showing gram-negative bacillus and the blood culture still pending. The patient remains on IV Invanz. The patient is also on stress dose hydrocortisone. The bicarb infusion will be discontinued the patient will be switched to a normal saline rate of 50 cc an hour. No other significant events overnight. She is awake and alert. Aspirin, Wellbutrin and BuSpar to be resumed. Blood sugars under better control for now. Renal function continues to improve and today's blood work shows a creatinine of 1.8 with a BUN of 37. Sodium is at 140 with a potassium level of 4. Serum bicarb is at 30,. White cell count 11, hemoglobin 9.2 and platelet count of 200. On today's evaluation of 10/13/2024, the patient is awake and alert and the patient is communicating. No hypotension. No pressors. No altered mentation. No chest pain. No pleurisy. No hemoptysis. Urine output is adequate. The patient is afebrile. Hemodynamically stable. Meanwhile, the patient's urine culture is positive for Klebsiella pneumonia and the patient remains on IV Invanz and the choice of antibiotics was made based on her extensive allergies. The white cell count is currently down to 10.04 with a hemoglobin of 8.7 and a platelet count of 185. Sodium is 141, creatinine continues to improve and is down to 1.26 with a BUN of 35. Potassium is at 3.8. Bicarb level is at 28. The patient remains on an insulin drip and she is known to have diabetes mellitus maintained on insulin pump on an outpatient basis. I am going to transition this patient to long-acting insulin with Lantus. The patient is also on stress dose hydrocortisone. This was given to her due to her underlying chronic adrenal sufficiency Seen today on 10/14/2024, patient remains in the ICU as an overflow, she is on 5 L nasal cannula, does not seem to be in distress, remains on Solu-Cortef she is also on Invanz and on Eliquis. Patient is being treated for Klebsiella pneumonia UTI and sepsis, she is hemodynamically stable today, not requiring any pressors, patient underwent cardiac catheterization today, she was found to have severe flow-limiting disease in the LAD and there was intermediate disease documented to be nonflow limiting involving the ramus intermedius and she was noted to have elevated left-sided filling pressures. Cardiology is planning staged PCI of the LAD given the fact that she reached her maximum amount of contrast. Patient does not seem to be in any distress WBC count is 8.6 hemoglobin 8.8 PTT is 49.8 electrolytes are normal BUN is 34 creatinine 1.06 Seen today on 10/15/2024, patient remains in the ICU, underwent cardiac catheteri zation yesterday, results as noted above patient may have to go for stenting of LAD today. Patient received fluids yesterday after her cardiac catheterization, however apparently she developed shortness of breath/acute pulmonary edema, today she is receiving diuretics, and patient did not use her BiPAP last night, will try to start her on BiPAP at bedside to use when she goes to bed tonight. Or she could use it as needed. WBC count is 7.9 hemoglobin 9.3 electrolytes are normal renal profile is normal BUN is 31 creatinine 0.86 Patient was seen today on 10/16/2024, remains in the ICU, patient underwent PCI yesterday, successful stenting of the mid LAD with an excellent angiographic results. However the patient developed a left groin hematoma, did not require any blood transfusion, she did have a drop of 1 g in her hemoglobin. Today the patient is complaining of minimal shortness of breath, no cough, no wheezing, patient did receive fluids yesterday after her cardiac catheterization but she is receiving Lasix this morning. WBC count 10.6 hemoglobin 7.7 electrolytes are normal renal profile is normal potassium is a bit low at 3.3. Seen today on 10/17/2024, remains in the ICU, patient is feeling better today, less shortness of breath, no chest pain, O2 sat is 99% on 2 L nasal cannula. WBC count is 11.7 hemoglobin 7.3 electrolytes are normal renal profile is normal, chest x-ray showed mild pulmonary vascular congestion but overall improved compared to baseline. Objective - Vital Signs Vital signs: Vital Signs Temp 97.8 F 10/17/24 08:00 Pulse 49 L 10/17/24 11:00 Resp 20 10/17/24 11:00 BP 122/72 10/17/24 11:00 Pulse Ox 99 10/17/24 11:00 FiO2 40 10/15/24 16:30 Intake & Output 10/16/24 10/17/24 10/17/24 18:59 06:59 18:59 Intake Total 260 840 310 Output Total 1915 390 75 Balance -1655 450 235 Weight 88 kg 86.4 kg Intake: IV 260 740 310 0.9 KVO 210 240 60 Ertapenem 1 gm In Sodium 50 50 Chloride 0.9% 50 ml @ 100 mls/hr IVPB DAILY [facility] Rx #:[id number] Magnesium Sulfate-D5w Pmx 200 1 gm In Dextrose/Water 1 100ml.bag @ 100 mls/hr IVPB Q1H [facility] Rx#: [id number] Potassium Chloride 20 meq 300 200 In Water For Injection 1 100ml.bag @ 50 mls/hr IVPB Q2H [facility] Rx#: [id number] Oral 100 Output: Urine 1914 390 75 Other: Voiding Method Indwelling Catheter Indwelling Catheter Indwelling Catheter # Bowel Movements 1 ABP, PAP, CO, CI - Last Documented Arterial Blood Pressure 146/77 - Exam GENERAL: Revealed 74-year-old female in no distress, on 2 L nasal cannula HEENT: PERRLA, EOMI, nonicteric no neck masses no JVD, moist mucous membranes. NECK: Supple, no JVD, no stridor. LUNGS: Diminished breath sounds at the bases no crackles rhonchi or wheezes HEART: S1-S2 audible 2/6 systolic murmur throughout the precordium ABDOMEN: Soft, nontender, no megaly no rebound no guarding EXTREMITIES: No edema, no clubbing, no cyanosis. Neuro: Alert oriented x 3 no gross focal neurologic deficit Psychiatric: Normal mood affect and no mental status examination Skin: Left groin hematoma is unchanged, resolving - Labs CBC & Chem 7: 10/17/24 03:32 10/17/24 10:40 Labs: Abnormal Lab Results - Last 24 Hours (Table) 10/16/24 10/16/24 10/16/24 Range/Units 17:17 17:35 17:35 WBC 15.39 H (4.50-10.00) 10*3/uL RBC 2.88 L (4.10-5.20) 10*6/uL Hgb 8.7 L (12.0-15.0) g/dL Hct 27.3 L (37.2-46.3) % MCV (80.0-97.0) fL MCHC 31.9 L (32.0-37.0) g/dL Immature Gran # 0.44 H (0.00-0.04) 10*3/uL Neutrophils # 12.91 H (1.80-7.70) 10*3/uL Lymphocytes # 0.85 L (0.90-5.00) 10*3/uL Monocytes # 1.16 H (0.20-1.00) 10*3/uL Eosinophils # 0.00 L (0.04-0.35) 10*3/uL Potassium 3.0 L (3.5-5.1) mmol/L Carbon Dioxide (22-30) mmol/L BUN (7-17) mg/dL Glucose (74-99) mg/dL POC Glucose (mg/dL) 192 H (70-110) mg/dL Calcium (8.4-10.2) mg/dL Magnesium (1.6-2.3) mg/dL 10/16/24 10/16/24 10/16/24 Range/Units 17:35 19:59 21:21 WBC (4.50-10.00) 10*3/uL RBC (4.10-5.20) 10*6/uL Hgb (12.0-15.0) g/dL Hct (37.2-46.3) % MCV (80.0-97.0) fL MCHC (32.0-37.0) g/dL Immature Gran # (0.00-0.04) 10*3/uL Neutrophils # (1.80-7.70) 10*3/uL Lymphocytes # (0.90-5.00) 10*3/uL Monocytes # (0.20-1.00) 10*3/uL Eosinophils # (0.04-0.35) 10*3/uL Potassium 2.9 L (3.5-5.1) mmol/L Carbon Dioxide (22-30) mmol/L BUN (7-17) mg/dL Glucose (74-99) mg/dL POC Glucose (mg/dL) 259 H (70-110) mg/dL Calcium (8.4-10.2) mg/dL Magnesium 1.5 L (1.6-2.3) mg/dL 10/17/24 10/17/24 10/17/24 Range/Units 03:32 03:32 11:26 WBC 11.72 H (4.50-10.00) 10*3/uL RBC 2.50 L (4.10-5.20) 10*6/uL Hgb 7.3 L (12.0-15.0) g/dL Hct 24.4 L (37.2-46.3) % MCV 97.6 H (80.0-97.0) fL MCHC 29.9 L (32.0-37.0) g/dL Immature Gran # 0.36 H (0.00-0.04) 10*3/uL Neutrophils # 8.63 H (1.80-7.70) 10*3/uL Lymphocytes # (0.90-5.00) 10*3/uL Monocytes # 1.10 H (0.20-1.00) 10*3/uL Eosinophils # (0.04-0.35) 10*3/uL Potassium (3.5-5.1) mmol/L Carbon Dioxide 38 H (22-30) mmol/L BUN 23 H (7-17) mg/dL Glucose 128 H (74-99) mg/dL POC Glucose (mg/dL) 127 H (70-110) mg/dL Calcium 6.9 L (8.4-10.2) mg/dL Magnesium (1.6-2.3) mg/dL Microbiology - Last 24 Hours (Table) 10/11/24 00:15 Blood Culture - Final Blood Assessment and Plan Assessment: Impression: Acute urinary tract infection secondary to Klebsiella pneumoniae with sepsis and septic shock Acute anion gap metabolic acidosis, resolved secondary to sepsis Acute kidney injury/acute tubular necrosis secondary to sepsis and septic shock Significant coronary artery disease as noted on cardiac catheterization, status post PCI of LAD on 10/15/2024 with successful outcome Obstructive sleep apnea syndrome History of adrenal insufficiency History of obstructive sleep apnea syndrome, patient has her own CPAP at bedside Obesity Dyslipidemia Benign essential hypertension History of paroxysmal atrial fibrillation Small left groin hematoma following cardiac catheterization/PCI/stent placement Recommendation: Transfer patient to medical cardiac floor Continue gentle intermittent diuresis Continue dual antiplatelet therapy Continue present supportive care measures Resume her home dose of hydrocortisone Patient to use CPAP/BiPAP as felt necessary Continue BuSpar and Wellbutrin Discontinue antibiotics Will continue to follow Time with Patient: Less than 30
[2024-10-17 16:17] LABS: Glucose,Whole Blood 354 mg/dL (70-110)
[2024-10-17 16:36] LABS: Glucose,Whole Blood 364 mg/dL (70-110)
[2024-10-17 20:10] LABS: Glucose,Whole Blood 283 mg/dL (70-110)
[2024-10-17] MEDS: HYDROCORTISONE 20 MG TAB PO SCH (21:13)
[2024-10-18 05:03] LABS: Basophils # (A) 0.02 10*3/uL (0.00-0.10); Basophils % (A) 0.2 %; Eosinophils # (A) 0.29 10*3/uL (0.04-0.35); Eosinophils % (A) 2.7 %; HCT 24.7 % (37.2-46.3); HGB 7.7 g/dL (12.0-15.0); Lymphocytes # (A) 0.83 10*3/uL (0.90-5.00); Lymphocytes % (A) 7.7 %; MCH 30.2 pg (27.0-32.0); MCHC 31.2 g/dL (32.0-37.0); MCV 96.9 fL (80.0-97.0); Mean Platelet Volume 10.2 fL (9.5-12.2); Monocytes % (A) 8.3 %; Neutrophils # (A) 8.34 10*3/uL (1.80-7.70); Neutrophils % (A) 77.3 %; Platelet Count 210 10*3/uL (140-440); RBC 2.55 10*6/uL (4.10-5.20); RDW 15.2 % (11.5-14.5); WBC 10.79 10*3/uL (4.50-10.00)
[2024-10-18 05:19] LABS: African American GFR (CKD) 84 (>60 ml/min/1.73 sqM); Anion Gap 4 mmol/L; Blood Urea Nitrogen 21 mg/dL (7-17); Calcium 7.3 mg/dL (8.4-10.2); Carbon Dioxide 38 mmol/L (22-30); Chloride 92 mmol/L (98-107); Glucose 223 mg/dL (74-99); Non-African American GFR(CKD) 73 (>60 ml/min/1.73 sqM); Potassium 4.1 mmol/L (3.5-5.1); Sodium 134 mmol/L (137-145)
[2024-10-18 05:53] LABS: Glucose,Whole Blood 240 mg/dL (70-110)
--- NOTE | 2024-10-18 09:26 | P.PN ---
Subjective Progress Note Date: 10/17/24 Patient was seen for a follow-up. Patient's was present by the bedside. Patient is laying in the bed. Patient continues to be somewhat short of breath. The vision has not changed. She can see quite clearly when she closes her right eye. However when she closes the left eye, it is very blurred. S Appears pale. Patient underwent: 1. Successful stenting of the mid LAD using 4.5 x 28 mm Xience drug-eluting stent with an excellent angiographic results. 2. Adjunctive use of IVUS and lithotripsy balloon 3. Ultrasound-guided access of the left common femoral artery and selective left common femoral artery angiogram Objective - Vital Signs Vital signs: Vital Signs Temp 98.1 F 10/18/24 04:00 Pulse 64 10/18/24 04:00 Resp 16 10/18/24 04:00 BP 124/62 10/18/24 04:00 Pulse Ox 100 10/18/24 04:00 FiO2 40 10/15/24 16:30 Intake & Output 10/17/24 10/18/24 10/18/24 18:59 06:59 18:59 Intake Total 380 180 Output Total 2205 700 Balance -1825 -520 Weight 86.5 kg Intake: IV 380 180 0.9 KVO 130 180 Ertapenem 1 gm In Sodium 50 Chloride 0.9% 50 ml @ 100 mls/hr IVPB DAILY [facility] Rx #:[id number] Potassium Chloride 20 meq 200 In Water For Injection 1 100ml.bag @ 50 mls/hr IVPB Q2H [facility] Rx#: [id number] Output: Urine 2205 700 Other: Voiding Method Indwelling Catheter Indwelling Catheter # Bowel Movements 1 ABP, PAP, CO, CI - Last Documented Arterial Blood Pressure 146/77 - Exam Patient is alert and awake. Patient's visual acuity is 20/70 right eye, and 20/25 left eye. Rest of the examination is unchanged. - Labs CBC & Chem 7: 10/18/24 04:49 10/18/24 04:49 Labs: Abnormal Lab Results - Last 24 Hours (Table) 10/17/24 10/17/24 10/17/24 Range/Units 11:26 16:16 16:35 WBC (4.50-10.00) 10*3/uL RBC (4.10-5.20) 10*6/uL Hgb (12.0-15.0) g/dL Hct (37.2-46.3) % MCHC (32.0-37.0) g/dL Immature Gran # (0.00-0.04) 10*3/uL Neutrophils # (1.80-7.70) 10*3/uL Lymphocytes # (0.90-5.00) 10*3/uL Sodium (137-145) mmol/L Chloride (98-107) mmol/L Carbon Dioxide (22-30) mmol/L BUN (7-17) mg/dL Glucose (74-99) mg/dL POC Glucose (mg/dL) 127 H 354 H 364 H (70-110) mg/dL Calcium (8.4-10.2) mg/dL 10/17/24 10/18/24 10/18/24 Range/Units 20:09 04:49 04:49 WBC 10.79 H (4.50-10.00) 10*3/uL RBC 2.55 L (4.10-5.20) 10*6/uL Hgb 7.7 L (12.0-15.0) g/dL Hct 24.7 L (37.2-46.3) % MCHC 31.2 L (32.0-37.0) g/dL Immature Gran # 0.41 H (0.00-0.04) 10*3/uL Neutrophils # 8.34 H (1.80-7.70) 10*3/uL Lymphocytes # 0.83 L (0.90-5.00) 10*3/uL Sodium 134 L (137-145) mmol/L Chloride 92 L (98-107) mmol/L Carbon Dioxide 38 H (22-30) mmol/L BUN 21 H (7-17) mg/dL Glucose 223 H (74-99) mg/dL POC Glucose (mg/dL) 283 H (70-110) mg/dL Calcium 7.3 L (8.4-10.2) mg/dL 10/18/24 Range/Units 05:51 WBC (4.50-10.00) 10*3/uL RBC (4.10-5.20) 10*6/uL Hgb (12.0-15.0) g/dL Hct (37.2-46.3) % MCHC (32.0-37.0) g/dL Immature Gran # (0.00-0.04) 10*3/uL Neutrophils # (1.80-7.70) 10*3/uL Lymphocytes # (0.90-5.00) 10*3/uL Sodium (137-145) mmol/L Chloride (98-107) mmol/L Carbon Dioxide (22-30) mmol/L BUN (7-17) mg/dL Glucose (74-99) mg/dL POC Glucose (mg/dL) 240 H (70-110) mg/dL Calcium (8.4-10.2) mg/dL Assessment and Plan Assessment: * Blurred vision right eye, worse than baseline, unclear cause. Patient has moderate right carotid artery stenosis. 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 Patient does have history of diabetes, rule out diabetic retinopathy or other ocular pathology. Doubt temporal arteritis, with normal ESR, although CRP is elevated. * Bilateral proptosis. * Metabolic encephalopathy * Acute UTI secondary to Klebsiella pneumonia with sepsis and septic shock * Acute kidney injury * History of paroxysmal atrial fibrillation * Non-STEMI, status postcardiac cath 10/14/2024 showing severe flow-limiting disease in mid LAD, status post stenting 10/15/2024. * History of migraine headaches, recently worse. * Obstructive sleep apnea * History of adrenal insufficiency * Hypertension * Diabetes * Coronary artery disease Plan: * Carotid Doppler revealed 50 to 69% stenosis of the right carotid bifurcation. Less than 50% stenosis of the left carotid bifurcation. Antegrade flow in both vertebral arteries. * Interventional cardiology on board. May be considered for right ICA stenting. * ESR 2, CRP 18.4/<1.0. Low likelihood of temporal arteritis with normal ESR. CRP could be elevated from other medical conditions. * Avoid hypotension. * Await ophthalmology consultation rule out ocular intrinsic pathology. * B12 1683, folate 6.50. Patient started on folate replacement. * Hemoglobin A1c 7.5. Recommend optimize control of diabetes to target A1c <7.0. * Lipid panel with cholesterol 193, LDL 90, HDL 55 and triglycerides 235. Patient on Crestor 5 mg at bedtime. We will start Lipitor 20 mg while in hospital. * TSH normal 1.85. * Continue Eliquis for paroxysmal atrial fibrillation. Eliquis currently on hold, because of groin hematoma. Patient currently on aspirin 81 mg and Brilinta 90 mg twice daily given for probable cardiac stent. * Patient currently on Invanz for UTI. * Other management as per IM/critical care and other multiple specialties on board.
--- NOTE | 2024-10-18 10:33 | P.PN ---
Subjective Progress Note Date: 10/17/24 74-year-old female with multiple comorbidities states she has had 1 day of nausea vomiting abdominal pain. Patient is a poor historian states that she has had multiple bouts of emesis that appears to be bilious. She states that she is nauseated. Denies any fever chills or night sweats. States that her chronic back pain feels worse. Blood work completed in ED reveals a WBC of 15.7, hemoglobin of 12.7 and platelet count of 299, sodium of 135, potassium 6.5, BUN/creatinine of 47/4.23, blood glucose of 174, troponin elevated at 1.510 UA reveals large number of leukocyte esterase, WBCs and bacteria EKG reviewed, sinus rhythm, rate 94 bpm, no QRS widening or peaked T waves. Nonspecific mild ST depressions. Hyperkalemia was treated in the ED with a combination of insulin 10 units regular, D50 W amp, 1 g calcium gluconate, concentrated albuterol treatment, as well as 5 g of Lokelma. Patient is admitted to ICU for hypotension likely related to septic shock and is on Levophed 10/13/2024 -- the patient is seen and evaluated in room at bedside; remains in ICU as PCU overflow; patient is more awake and alert and the patient is communicating. -- The patient is afebrile. Hemodynamically stable. -- urine culture is positive for Klebsiella pneumonia and the patient remains on IV Invanz and the choice of antibiotics was made based on her extensive allergies. - white cell count is currently down to 10.04 with a hemoglobin of 8.7 and a platelet count of 185. Sodium is 141, creatinine continues to improve and is down to 1.26 with a BUN of 35. Potassium is at 3.8. Bicarb level is at 28. - patient remains on an insulin drip and she is known to have diabetes mellitus maintained on insulin pump on an outpatient basis. Plan is to to transition this patient to long-acting insulin with Lantus. The patient is also on stress dose hydrocortisone. This was given to her due to her underlying chronic adrenal sufficiency 10/14/2024 Patient is seen in follow-up in the ICU being followed by multiple consultations including cardiology and is currently at cardiac catheterization official report. Patient is continued on antibiotics for urinary tract infection with Klebsiella in the form of Invanz at this time. Will follow-up on repeat labs in a.m. 10/15/2024 Patient is seen in follow-up being followed by cardiology scheduled to undergo surgical intervention of the LAD with Dr. Rosenberg today and is tentatively planning for stenting of the LAD and will await official report. Patient is extremely anxious about the procedure with family at bedside comforting her. Patient is afebrile and denies chest pain although does report some shortness of breath. Patient currently n.p.o. and diet will be resumed once cleared by cardiology. Recommend repeat labs in the a.m. as white count was mildly elevated at 12 today although possibly reactive. 10/16/2024 Patient is seen in follow-up today continues in the ICU as an overflow and had stenting to the mid LAD with cardiology. Patient continues on telemetry monitoring being closely monitored making adjustments accordingly. Patient continues to report visual disturbances more so on the right with blurry vision and ophthalmology has been consulted although pending at this time per neurology. Unsure if there is ophthalmology coverage this week. Patient also continues on IV Invanz for Klebsiella urinary tract infection and will continue for now. Encouraged PT/OT therapy for evaluation as patient is significantly weak and has had prolonged hospitalization. Anticoagulation remains on hold secondary to a groin hematoma. Encourage sitting up in the chair more frequently and increased activity as tolerated. 10/17/2024 Patient is seen in the ICU as a downgrade once a bed is available. Patient with multiple consultations following is status post stenting to the mid LAD with cardiology recommending outpatient follow-up. Patient also being followed by neurology continues to have visual disturbances with blurry vision and unfortunately there is no ophthalmology available and discussed with neurology and patient will need follow-up with her spot cleaner Dr. Horan in the outpatient setting. Patient to follow-up with neurology outpatient as well. Patient is afebrile with no reports of worsening shortness of breath or chest pain. Patient not tolerating much of a diet and reports does not care for the food too much. Patient with extensive weakness evaluated by physical therapy recommending rehab and patient and family are agreeable. Case management following and is patient will require insurance authorization which will be submitted and pending. Review of systems: Constitutional: No reports of fatigue, fever, or chills, reports to continuing to have visual disturbances Cardiovascular: No reports of chest pain or palpitations Respiratory: No reports of worsening shortness of breath GI: No reports of nausea, vomiting, or diarrhea : No reports of dysuria or retention Neurovascular: reports of generalized weakness All medications have been reviewed Physical exam: Gen: This is a 74-year-old female who is awake, alert and oriented x 2, well- developed, ill-appearing, obese, elderly appearing HEENT: Head is atraumatic, normocephalic. Pupils equal, round. Sclerae is anicteric. NECK: Supple. No JVD. No lymphadenopathy. No thyromegaly. LUNGS: Diminished breath sounds bilaterally with no wheezes or rhonchi. No intercostal retractions. HEART: S1, S2 are muffled ABDOMEN: Soft. Obese bowel sounds are present. No masses. No tenderness. EXTREMITIES: No pedal edema. No calf tenderness. NEUROLOGICAL: Patient is awake, alert and oriented x 2. Diffusely weak Assessment: 1. UTI/sepsis/septic shock, present on admission, urine culture showing Klebsiella 2. Acute renal failure; likely prerenal azotemia, improving 3. Critical hyperkalemia, improving 4. elevated troponin; likely related to acute renal failure and septic shock; patient does have history of nonobstructive coronary artery disease, status post cardiac catheterization and underwent successful stenting of the mid LAD with Dr. Rosenberg 10/15/2024 5. Paroxysmal atrial fibrillation; patient is currently in NSR; anticoagulated with Eliquis, although currently on hold due to hematoma 6. Hypertension; antihypertensive medications remain on hold given septic shock; we will resume once patient is improved 7. Hyperlipidemia 8. Adrenal insufficiency; patient is maintained on Solu-Cortef 9. COPD; not in exacerbation; continue with home inhaler therapy 10. Obesity with a BMI 37.9 11. Generalized weakness with gait dysfunction, recommend PT/OT therapy evaluation GI prophylaxis DVT prophylaxis; SCD/Eliquis CODE STATUS; full code Plan: Patient is continued in the ICU although as a 3 S. overflow once a bed becomes available continued on telemetry monitoring consultations following. Cardiology following and patient underwent cardiac catheterization and successful stenting of the mid LAD with Dr. Rosenberg 10/15/2024. Patient will need close outpatient follow-up with cardiology in the outpatient setting Patient is continued on IV Invanz with Klebsiella in the urine Follow-up on repeat labs, replace electrolytes per protocol Patient remains on Cortef with history of adrenal insufficiency and being weaned Recommend PT/OT therapy evaluation as patient is significantly weak and has had prolonged hospitalization, case management following submitting for insurance authorization and referrals to ECF as patient is agreeable and per PT/OT therapy evaluation, patient will require rehab on discharge Neurology following as well and ophthalmology was consulted due to continued bl urry vision although there is no ophthalmology available at this time. This was discussed with neurology and patient will need close outpatient follow-up with her spot cleaner Dr. Horan on discharge Will await insurance authorization for ECF. Possible discharge planning in the next 24 to 48 hours The impression and plan of care has been dictated by Yecenia Horan, Nurse Practitioner as directed. Dr. Pascale MD I have performed a history and examination and MDM of this patient, discussed the same with the dictator, and agree with the dictator's assessment and plan as written ,documented as a scribe. Based on total visit time, I have performed more than 50% of the visit. Objective - Vital Signs Vital signs: Vital Signs Temp 97.6 F 10/17/24 04:00 Pulse 52 L 10/17/24 07:00 Resp 21 10/17/24 07:00 BP 110/65 10/17/24 07:00 Pulse Ox 100 10/17/24 07:00 FiO2 40 10/15/24 16:30 Intake & Output 10/16/24 10/17/24 10/17/24 18:59 06:59 18:59 Intake Total 260 840 20 Output Total 1915 390 15 Balance -1655 450 5 Weight 88 kg 86.4 kg Intake: IV 260 740 20 0.9 KVO 210 240 20 Ertapenem 1 gm In Sodium 50 Chloride 0.9% 50 ml @ 100 mls/hr IVPB DAILY [facility] Rx #:[id number] Magnesium Sulfate-D5w Pmx 200 1 gm In Dextrose/Water 1 100ml.bag @ 100 mls/hr IVPB Q1H [facility] Rx#: [id number] Potassium Chloride 20 meq 300 In Water For Injection 1 100ml.bag @ 50 mls/hr IVPB Q2H [facility] Rx#: [id number] Oral 100 Output: Urine 1915 390 15 Other: Voiding Method Indwelling Catheter Indwelling Catheter # Bowel Movements 1 ABP, PAP, CO, CI - Last Documented Arterial Blood Pressure 146/77 - Labs CBC & Chem 7: 10/18/24 04:49 10/18/24 04:49 Labs: Abnormal Lab Results - Last 24 Hours (Table) 10/16/24 10/16/24 10/16/24 Range/Units 11:24 17:17 17:35 WBC 15.39 H (4.50-10.00) 10*3/uL RBC 2.88 L (4.10-5.20) 10*6/uL Hgb 8.7 L (12.0-15.0) g/dL Hct 27.3 L (37.2-46.3) % MCV (80.0-97.0) fL MCHC 31.9 L (32.0-37.0) g/dL Immature Gran # 0.44 H (0.00-0.04) 10*3/uL Neutrophils # 12.91 H (1.80-7.70) 10*3/uL Lymphocytes # 0.85 L (0.90-5.00) 10*3/uL Monocytes # 1.16 H (0.20-1.00) 10*3/uL Eosinophils # 0.00 L (0.04-0.35) 10*3/uL Potassium (3.5-5.1) mmol/L Carbon Dioxide (22-30) mmol/L BUN (7-17) mg/dL Glucose (74-99) mg/dL POC Glucose (mg/dL) 318 H 192 H (70-110) mg/dL Calcium (8.4-10.2) mg/dL Magnesium (1.6-2.3) mg/dL 10/16/24 10/16/24 10/16/24 Range/Units 17:35 17:35 19:59 WBC (4.50-10.00) 10*3/uL RBC (4.10-5.20) 10*6/uL Hgb (12.0-15.0) g/dL Hct (37.2-46.3) % MCV (80.0-97.0) fL MCHC (32.0-37.0) g/dL Immature Gran # (0.00-0.04) 10*3/uL Neutrophils # (1.80-7.70) 10*3/uL Lymphocytes # (0.90-5.00) 10*3/uL Monocytes # (0.20-1.00) 10*3/uL Eosinophils # (0.04-0.35) 10*3/uL Potassium 3.0 L (3.5-5.1) mmol/L Carbon Dioxide (22-30) mmol/L BUN (7-17) mg/dL Glucose (74-99) mg/dL POC Glucose (mg/dL) 259 H (70-110) mg/dL Calcium (8.4-10.2) mg/dL Magnesium 1.5 L (1.6-2.3) mg/dL 10/16/24 10/17/24 10/17/24 Range/Units 21:21 03:32 03:32 WBC 11.72 H (4.50-10.00) 10*3/uL RBC 2.50 L (4.10-5.20) 10*6/uL Hgb 7.3 L (12.0-15.0) g/dL Hct 24.4 L (37.2-46.3) % MCV 97.6 H (80.0-97.0) fL MCHC 29.9 L (32.0-37.0) g/dL Immature Gran # 0.36 H (0.00-0.04) 10*3/uL Neutrophils # 8.63 H (1.80-7.70) 10*3/uL Lymphocytes # (0.90-5.00) 10*3/uL Monocytes # 1.10 H (0.20-1.00) 10*3/uL Eosinophils # (0.04-0.35) 10*3/uL Potassium 2.9 L (3.5-5.1) mmol/L Carbon Dioxide 38 H (22-30) mmol/L BUN 23 H (7-17) mg/dL Glucose 128 H (74-99) mg/dL POC Glucose (mg/dL) (70-110) mg/dL Calcium 6.9 L (8.4-10.2) mg/dL Magnesium (1.6-2.3) mg/dL Microbiology - Last 24 Hours (Table) 10/11/24 00:15 Blood Culture - Final Blood
[2024-10-18 11:04] LABS: Glucose,Whole Blood 216 mg/dL (70-110)
--- NOTE | 2024-10-18 14:08 | P.PN ---
Subjective Progress Note Date: 10/18/24 Principal diagnosis: Acute urinary tract infection with sepsis and septic shock secondary to Klebsiella pneumonia Patient is a 74-year-old female with past medical history significant for hypertension, hyperlipidemia, diabetes mellitus, atrial fibrillation anticoagulated on Eliquis, obstructive sleep apnea with home CPAP, COPD, adrenal insufficiency, and recurrent urinary tract infections. Of note, patient had a recent hospitalization July, for urinary tract infection. Urine culture was remarkable for Klebsiella pneumonia at that time. No further treatment with antibiotics following her hospitalization in July. Presents the emergency department history evening with concerns of UTI. She was also noted to be hypotensive and tachycardic. With elevated WBC count. Workup in the emergency department including CT of the abdomen and pelvis which did not show any suspicious bowel obstructions or ileus. Bilateral renal cysts were noted. No stones or hydronephrosis. Found to be in acute kidney injury/failure. Creatinine 4.23. Urinalysis remarkable for pyuria and bacteriuria. Urine culture was sent. Potassium was critically elevated at 6.5. This was treated in the ED with a combination of insulin 10 units regular, D50 W amp, 1 g calcium gluconate, concentrated albuterol treatment, as well as 5 g of Lokelma. EKG reviewed, sinus rhythm, rate 94 bpm, no QRS widening or peaked T waves. Nonspecific mild ST depressions. She does take lisinopril, Aldactone, as well as, potassium supplements at home. Remaining blood work remarkable for a CBC with a WBC count of 15.7, hemoglobin 12.7, platelets 299. CMP: Sodium 135, potassium 6.5, chloride 105, serum bicarb 10, anion gap 20, BUN 47, creatinine 4.23, glucose 151. Lactic 1.6. LFTs not elevated. Troponin 1.51, probably related to poor renal clearance. Patient is currently being evaluated in the intensive care unit. She is alert and oriented. States over the last week she has had burning with urination accompanied with urinary frequency and right flank pain. Denies any hematuria. No documented fevers but has been chilled. She has been eating and drinking without issue up until 24 to 48 hours prior to ER presentation where she developed some nausea and vomiting with with eating and drinking. Denies hematochezia, melanotic stools, hematemesis. Denies abdominal pain. Mucous membranes appear dry. Blood pressures improved with fluid resuscitation. She has been fluid resuscitated with a total of 2 L normal saline in the ED and continues on normal saline at 130 mL/h. Heart rate is tachycardic. Not requiring any vasopressors at the moment. Empirically covered with Levaquin in the ED. She has multiple medication/antibiotic allergies. Repeat labs are pending. On 10/12/2024, the patient is being seen for a follow-up. The patient is currently off pressors. Hemodynamically stable. Vasopressin has been discontinued. Norepinephrine has been discontinued. Patient remains on a bicarb infusion at rate of 100 cc an hour. Fluid balance is +5.3 L negative patient remains on 3 Suboxone by nasal cannula. The patient's urine culture is showing gram-negative bacillus and the blood culture still pending. The patient remains on IV Invanz. The patient is also on stress dose hydrocortisone. The bicarb infusion will be discontinued the patient will be switched to a normal saline rate of 50 cc an hour. No other significant events overnight. She is awake and alert. Aspirin, Wellbutrin and BuSpar to be resumed. Blood sugars under better control for now. Renal function continues to improve and today's blood work shows a creatinine of 1.8 with a BUN of 37. Sodium is at 140 with a potassium level of 4. Serum bicarb is at 30,. White cell count 11, hemoglobin 9.2 and platelet count of 200. On today's evaluation of 10/13/2024, the patient is awake and alert and the patient is communicating. No hypotension. No pressors. No altered mentation. No chest pain. No pleurisy. No hemoptysis. Urine output is adequate. The patient is afebrile. Hemodynamically stable. Meanwhile, the patient's urine culture is positive for Klebsiella pneumonia and the patient remains on IV Invanz and the choice of antibiotics was made based on her extensive allergies. The white cell count is currently down to 10.04 with a hemoglobin of 8.7 and a platelet count of 185. Sodium is 141, creatinine continues to improve and is down to 1.26 with a BUN of 35. Potassium is at 3.8. Bicarb level is at 28. The patient remains on an insulin drip and she is known to have diabetes mellitus maintained on insulin pump on an outpatient basis. I am going to transition this patient to long-acting insulin with Lantus. The patient is also on stress dose hydrocortisone. This was given to her due to her underlying chronic adrenal sufficiency Seen today on 10/14/2024, patient remains in the ICU as an overflow, she is on 5 L nasal cannula, does not seem to be in distress, remains on Solu-Cortef she is also on Invanz and on Eliquis. Patient is being treated for Klebsiella pneumonia UTI and sepsis, she is hemodynamically stable today, not requiring any pressors, patient underwent cardiac catheterization today, she was found to have severe flow-limiting disease in the LAD and there was intermediate disease documented to be nonflow limiting involving the ramus intermedius and she was noted to have elevated left-sided filling pressures. Cardiology is planning staged PCI of the LAD given the fact that she reached her maximum amount of contrast. Patient does not seem to be in any distress WBC count is 8.6 hemoglobin 8.8 PTT is 49.8 electrolytes are normal BUN is 34 creatinine 1.06 Seen today on 10/15/2024, patient remains in the ICU, underwent cardiac catheteri zation yesterday, results as noted above patient may have to go for stenting of LAD today. Patient received fluids yesterday after her cardiac catheterization, however apparently she developed shortness of breath/acute pulmonary edema, today she is receiving diuretics, and patient did not use her BiPAP last night, will try to start her on BiPAP at bedside to use when she goes to bed tonight. Or she could use it as needed. WBC count is 7.9 hemoglobin 9.3 electrolytes are normal renal profile is normal BUN is 31 creatinine 0.86 Patient was seen today on 10/16/2024, remains in the ICU, patient underwent PCI yesterday, successful stenting of the mid LAD with an excellent angiographic results. However the patient developed a left groin hematoma, did not require any blood transfusion, she did have a drop of 1 g in her hemoglobin. Today the patient is complaining of minimal shortness of breath, no cough, no wheezing, patient did receive fluids yesterday after her cardiac catheterization but she is receiving Lasix this morning. WBC count 10.6 hemoglobin 7.7 electrolytes are normal renal profile is normal potassium is a bit low at 3.3. Seen today on 10/17/2024, remains in the ICU, patient is feeling better today, less shortness of breath, no chest pain, O2 sat is 99% on 2 L nasal cannula. WBC count is 11.7 hemoglobin 7.3 electrolytes are normal renal profile is normal, chest x-ray showed mild pulmonary vascular congestion but overall improved compared to baseline. Patient was seen today on 10/18/2024, patient continues to do well, feeling much better today, patient is relatively asymptomatic, remains generally weak, and the plan is to transfer the patient sometime later today to rehab. WBC count is 10.7 hemoglobin 7.7 electrolytes are normal renal profile is normal patient denies any cough wheezing or shortness of breath Objective - Vital Signs Vital signs: Vital Signs Temp 97.9 F 10/18/24 12:00 Pulse 56 L 10/18/24 12:00 Resp 18 10/18/24 13:00 BP 133/68 10/18/24 12:00 Pulse Ox 97 10/18/24 13:00 FiO2 40 10/15/24 16:30 Intake & Output 10/17/24 10/18/24 10/18/24 18:59 06:59 18:59 Intake Total 380 180 120 Output Total 2205 700 1200 Balance -1825 -520 -1080 Weight 86.5 kg Intake: IV 380 180 120 0.9 KVO 130 180 120 Ertapenem 1 gm In Sodium 50 Chloride 0.9% 50 ml @ 100 mls/hr IVPB DAILY [facility] Rx #:[id number] Potassium Chloride 20 meq 200 In Water For Injection 1 100ml.bag @ 50 mls/hr IVPB Q2H [facility] Rx#: [id number] Output: Urine 2205 700 1200 Other: Voiding Method Indwelling Catheter Indwelling Catheter Indwelling Catheter # Bowel Movements 1 2 ABP, PAP, CO, CI - Last Documented Arterial Blood Pressure 146/77 - Exam GENERAL: Revealed 74-year-old female in no distress, on 2 L nasal cannula, O2 saturation is 99% HEENT: PERRLA, EOMI, nonicteric no neck masses no JVD, moist mucous membranes. NECK: Supple, no JVD, no stridor. LUNGS: Diminished breath sounds at the bases no crackles rhonchi or wheezes HEART: S1-S2 audible 2/6 systolic murmur throughout the precordium ABDOMEN: Soft, nontender, no megaly no rebound no guarding EXTREMITIES: No edema, no clubbing, no cyanosis. Neuro: Alert oriented x 3 no gross focal neurologic deficit Psychiatric: Normal mood affect and no mental status examination Skin: Left groin hematoma is unchanged, resolving - Labs CBC & Chem 7: 10/18/24 04:49 10/18/24 04:49 Labs: Abnormal Lab Results - Last 24 Hours (Table) 10/17/24 10/17/24 10/17/24 Range/Units 16:16 16:35 20:09 WBC (4.50-10.00) 10*3/uL RBC (4.10-5.20) 10*6/uL Hgb (12.0-15.0) g/dL Hct (37.2-46.3) % MCHC (32.0-37.0) g/dL Immature Gran # (0.00-0.04) 10*3/uL Neutrophils # (1.80-7.70) 10*3/uL Lymphocytes # (0.90-5.00) 10*3/uL Sodium (137-145) mmol/L Chloride (98-107) mmol/L Carbon Dioxide (22-30) mmol/L BUN (7-17) mg/dL Glucose (74-99) mg/dL POC Glucose (mg/dL) 354 H 364 H 283 H (70-110) mg/dL Calcium (8.4-10.2) mg/dL 10/18/24 10/18/24 10/18/24 Range/Units 04:49 04:49 05:51 WBC 10.79 H (4.50-10.00) 10*3/uL RBC 2.55 L (4.10-5.20) 10*6/uL Hgb 7.7 L (12.0-15.0) g/dL Hct 24.7 L (37.2-46.3) % MCHC 31.2 L (32.0-37.0) g/dL Immature Gran # 0.41 H (0.00-0.04) 10*3/uL Neutrophils # 8.34 H (1.80-7.70) 10*3/uL Lymphocytes # 0.83 L (0.90-5.00) 10*3/uL Sodium 134 L (137-145) mmol/L Chloride 92 L (98-107) mmol/L Carbon Dioxide 38 H (22-30) mmol/L BUN 21 H (7-17) mg/dL Glucose 223 H (74-99) mg/dL POC Glucose (mg/dL) 240 H (70-110) mg/dL Calcium 7.3 L (8.4-10.2) mg/dL 10/18/24 Range/Units 11:02 WBC (4.50-10.00) 10*3/uL RBC (4.10-5.20) 10*6/uL Hgb (12.0-15.0) g/dL Hct (37.2-46.3) % MCHC (32.0-37.0) g/dL Immature Gran # (0.00-0.04) 10*3/uL Neutrophils # (1.80-7.70) 10*3/uL Lymphocytes # (0.90-5.00) 10*3/uL Sodium (137-145) mmol/L Chloride (98-107) mmol/L Carbon Dioxide (22-30) mmol/L BUN (7-17) mg/dL Glucose (74-99) mg/dL POC Glucose (mg/dL) 216 H (70-110) mg/dL Calcium (8.4-10.2) mg/dL Assessment and Plan Assessment: Impression: Acute urinary tract infection secondary to Klebsiella pneumoniae with sepsis and septic shock Acute anion gap metabolic acidosis, resolved secondary to sepsis Acute kidney injury/acute tubular necrosis secondary to sepsis and septic shock Significant coronary artery disease as noted on cardiac catheterization, status post PCI of LAD on 10/15/2024 with successful outcome Obstructive sleep apnea syndrome History of adrenal insufficiency History of obstructive sleep apnea syndrome, patient has her own CPAP at bedside Obesity Dyslipidemia Benign essential hypertension History of paroxysmal atrial fibrillation Small left groin hematoma following cardiac catheterization/PCI/stent placement Recommendation: Consider discharge planning if cleared by other consultants Transfer patient to medical cardiac floor Continue gentle intermittent diuresis Continue dual antiplatelet therapy Patient is back on orals hydrocortisone Patient to use CPAP/BiPAP as felt necessary Continue BuSpar and Wellbutrin Time with Patient: Less than 30
[2024-10-18 16:37] LABS: Glucose,Whole Blood 313 mg/dL (70-110)
--- NOTE | 2024-10-18 18:34 | PN ---
PROGRESS NOTE SUBJECTIVE: A 74-year-old lady who underwent complex and high-risk angioplasty and had significant groin bleed is making slow but steady recovery. This morning, she is feeling better. PHYSICAL EXAMINATION: VITAL SIGNS: Heart rate is 64 beats, blood pressure is 120/60, respiratory rate 18. CHEST: Reveals good air entry bilaterally. I do not hear any crackles or rhonchi. HEART: Reveals first and second heart sounds. No gallop. ABDOMEN: Soft. EXTREMITIES: Reveal bilateral 1+ edema. There is extensive ecchymosis bilaterally. Hemoglobin is stable at 7.7. It was at 7.3 yesterday. The patient is on aspirin and Brilinta. I am going to hold off on the Eliquis until tomorrow and reassess at that time. ASSESSMENT: CAD, status post angioplasty. Gram-negative septicemia, history of paroxysmal atrial fibrillation and obstructive sleep apnea. PLAN: The patient is on aspirin and Brilinta. I will resume the Eliquis tomorrow as I am concerned that resuming triple anticoagulant therapy might increase the risk of recurrence of her groin bleeding. We will check CBC tomorrow. MMODL / IJN: [id number] /
[2024-10-18 20:02] LABS: Glucose,Whole Blood 204 mg/dL (70-110)
[2024-10-18] MEDS: APIXABAN 2.5 MG TABLET PO SCH (20:40)
[2024-10-19 05:53] LABS: Glucose,Whole Blood 246 mg/dL (70-110)
--- NOTE | 2024-10-19 06:01 | P.PN ---
Subjective Progress Note Date: 10/18/24 74-year-old female with multiple comorbidities states she has had 1 day of nausea vomiting abdominal pain. Patient is a poor historian states that she has had multiple bouts of emesis that appears to be bilious. She states that she is nauseated. Denies any fever chills or night sweats. States that her chronic back pain feels worse. Blood work completed in ED reveals a WBC of 15.7, hemoglobin of 12.7 and platelet count of 299, sodium of 135, potassium 6.5, BUN/creatinine of 47/4.23, blood glucose of 174, troponin elevated at 1.510 UA reveals large number of leukocyte esterase, WBCs and bacteria EKG reviewed, sinus rhythm, rate 94 bpm, no QRS widening or peaked T waves. Nonspecific mild ST depressions. Hyperkalemia was treated in the ED with a combination of insulin 10 units regular, D50 W amp, 1 g calcium gluconate, concentrated albuterol treatment, as well as 5 g of Lokelma. Patient is admitted to ICU for hypotension likely related to septic shock and is on Levophed 10/13/2024 -- the patient is seen and evaluated in room at bedside; remains in ICU as PCU overflow; patient is more awake and alert and the patient is communicating. -- The patient is afebrile. Hemodynamically stable. -- urine culture is positive for Klebsiella pneumonia and the patient remains on IV Invanz and the choice of antibiotics was made based on her extensive allergies. - white cell count is currently down to 10.04 with a hemoglobin of 8.7 and a platelet count of 185. Sodium is 141, creatinine continues to improve and is down to 1.26 with a BUN of 35. Potassium is at 3.8. Bicarb level is at 28. - patient remains on an insulin drip and she is known to have diabetes mellitus maintained on insulin pump on an outpatient basis. Plan is to to transition this patient to long-acting insulin with Lantus. The patient is also on stress dose hydrocortisone. This was given to her due to her underlying chronic adrenal sufficiency 10/14/2024 Patient is seen in follow-up in the ICU being followed by multiple consultations including cardiology and is currently at cardiac catheterization official report. Patient is continued on antibiotics for urinary tract infection with Klebsiella in the form of Invanz at this time. Will follow-up on repeat labs in a.m. 10/15/2024 Patient is seen in follow-up being followed by cardiology scheduled to undergo surgical intervention of the LAD with Dr. Rosenberg today and is tentatively planning for stenting of the LAD and will await official report. Patient is extremely anxious about the procedure with family at bedside comforting her. Patient is afebrile and denies chest pain although does report some shortness of breath. Patient currently n.p.o. and diet will be resumed once cleared by cardiology. Recommend repeat labs in the a.m. as white count was mildly elevated at 12 today although possibly reactive. 10/16/2024 Patient is seen in follow-up today continues in the ICU as an overflow and had stenting to the mid LAD with cardiology. Patient continues on telemetry monitoring being closely monitored making adjustments accordingly. Patient continues to report visual disturbances more so on the right with blurry vision and ophthalmology has been consulted although pending at this time per neurology. Unsure if there is ophthalmology coverage this week. Patient also continues on IV Invanz for Klebsiella urinary tract infection and will continue for now. Encouraged PT/OT therapy for evaluation as patient is significantly weak and has had prolonged hospitalization. Anticoagulation remains on hold secondary to a groin hematoma. Encourage sitting up in the chair more frequently and increased activity as tolerated. 10/17/2024 Patient is seen in the ICU as a downgrade once a bed is available. Patient with multiple consultations following is status post stenting to the mid LAD with cardiology recommending outpatient follow-up. Patient also being followed by neurology continues to have visual disturbances with blurry vision and unfortunately there is no ophthalmology available and discussed with neurology and patient will need follow-up with her chain puller Dr. Horan in the outpatient setting. Patient to follow-up with neurology outpatient as well. Patient is afebrile with no reports of worsening shortness of breath or chest pain. Patient not tolerating much of a diet and reports does not care for the food too much. Patient with extensive weakness evaluated by physical therapy recommending rehab and patient and family are agreeable. Case management following and is patient will require insurance authorization which will be submitted and pending. Review of systems: Constitutional: No reports of fatigue, fever, or chills, reports to continuing to have visual disturbances Cardiovascular: No reports of chest pain or palpitations Respiratory: No reports of worsening shortness of breath GI: No reports of nausea, vomiting, or diarrhea : No reports of dysuria or retention Neurovascular: reports of generalized weakness All medications have been reviewed Physical exam: Gen: This is a 74-year-old female who is awake, alert and oriented x 2, well- developed, ill-appearing, obese, elderly appearing HEENT: Head is atraumatic, normocephalic. Pupils equal, round. Sclerae is anicteric. NECK: Supple. No JVD. No lymphadenopathy. No thyromegaly. LUNGS: Diminished breath sounds bilaterally with no wheezes or rhonchi. No intercostal retractions. HEART: S1, S2 are muffled ABDOMEN: Soft. Obese bowel sounds are present. No masses. No tenderness. EXTREMITIES: No pedal edema. No calf tenderness. NEUROLOGICAL: Patient is awake, alert and oriented x 2. Diffusely weak Assessment: 1. UTI/sepsis/septic shock, present on admission, urine culture showing Klebsiella 2. Acute renal failure; likely prerenal azotemia, improving 3. Critical hyperkalemia, improving 4. elevated troponin; likely related to acute renal failure and septic shock; patient does have history of nonobstructive coronary artery disease, status post cardiac catheterization and underwent successful stenting of the mid LAD with Dr. Rosenberg 10/15/2024 5. Paroxysmal atrial fibrillation; patient is currently in NSR; anticoagulated with Eliquis, although currently on hold due to hematoma 6. Hypertension; antihypertensive medications remain on hold given septic shock; we will resume once patient is improved 7. Hyperlipidemia 8. Adrenal insufficiency; patient is maintained on Solu-Cortef 9. COPD; not in exacerbation; continue with home inhaler therapy 10. Obesity with a BMI 37.9 11. Generalized weakness with gait dysfunction, recommend PT/OT therapy evaluation GI prophylaxis DVT prophylaxis; SCD/Eliquis to be resumed 10/18/2024 per cardiology CODE STATUS; full code Plan: Patient is continued in the ICU although as a 3 S. overflow once a bed becomes available continued on telemetry monitoring consultations following. Cardiology following and patient underwent cardiac catheterization and successful stenting of the mid LAD with Dr. Rosenberg 10/15/2024. Patient will need close outpatient follow-up with cardiology in the outpatient setting. Eliquis has been on hold due to anemia with no active bleeding noted. Okay to resume Eliquis 2.5 mg this evening 10/18/2024 per cardiology and recheck CBC in the AM. If CBC is stable patient may be discharged to ECF Patient is continued on IV Invanz with Klebsiella in the urine, will not require antibiotics on discharge Patient remains on Cortef with history of adrenal insufficiency and being weaned, will resume home dose Recommend PT/OT therapy evaluation as patient is significantly weak and has had prolonged hospitalization, case management following submitting for insurance authorization and patient has been accepted at [facility]. Patient is agreeable and per PT/OT therapy evaluation, patient will require rehab on discharge Neurology following as well and ophthalmology was consulted due to continued blurry vision although there is no ophthalmology available at this time. This was discussed with neurology and patient will need close outpatient follow-up with her chain puller Dr. Horan on discharge Patient has received insurance authorization to [facility] and has been cleared by consultations other than cardiology who recommends monitoring overnight and repeating CBC as we are resuming Eliquis which has been on hold. If CBC is stable patient is medically clear for discharge to [facility] Possible discharge planning in the next 24 hours The impression and plan of care has been dictated by Yecenia Horan, Nurse Practitioner as directed. Dr. Pascale MD I have performed a history and examination and MDM of this patient, discussed the same with the dictator, and agree with the dictator's assessment and plan as written ,documented as a scribe. Based on total visit time, I have performed more than 50% of the visit. Objective - Vital Signs Vital signs: Vital Signs Temp 97.9 F 10/18/24 08:00 Pulse 65 10/18/24 10:00 Resp 20 10/18/24 08:00 BP 142/66 10/18/24 08:00 Pulse Ox 100 10/18/24 08:00 FiO2 40 10/15/24 16:30 Intake & Output 10/17/24 10/18/24 10/18/24 18:59 06:59 18:59 Intake Total 380 180 120 Output Total 2205 700 1200 Balance -1822 -520 -6339 Weight 86.5 kg Intake: IV 380 180 120 0.9 KVO 130 180 120 Ertapenem 1 gm In Sodium 50 Chloride 0.9% 50 ml @ 100 mls/hr IVPB DAILY [facility] Rx #:[id number] Potassium Chloride 20 meq 200 In Water For Injection 1 100ml.bag @ 50 mls/hr IVPB Q2H [facility] Rx#: [id number] Output: Urine 2205 700 1200 Other: Voiding Method Indwelling Catheter Indwelling Catheter Indwelling Catheter # Bowel Movements 1 2 ABP, PAP, CO, CI - Last Documented Arterial Blood Pressure 146/77 - Labs CBC & Chem 7: 10/18/24 04:49 10/18/24 04:49 Labs: Abnormal Lab Results - Last 24 Hours (Table) 10/17/24 10/17/24 10/17/24 Range/Units 11:26 16:16 16:35 WBC (4.50-10.00) 10*3/uL RBC (4.10-5.20) 10*6/uL Hgb (12.0-15.0) g/dL Hct (37.2-46.3) % MCHC (32.0-37.0) g/dL Immature Gran # (0.00-0.04) 10*3/uL Neutrophils # (1.80-7.70) 10*3/uL Lymphocytes # (0.90-5.00) 10*3/uL Sodium (137-145) mmol/L Chloride (98-107) mmol/L Carbon Dioxide (22-30) mmol/L BUN (7-17) mg/dL Glucose (74-99) mg/dL POC Glucose (mg/dL) 127 H 354 H 364 H (70-110) mg/dL Calcium (8.4-10.2) mg/dL 10/17/24 10/18/24 10/18/24 Range/Units 20:09 04:49 04:49 WBC 10.79 H (4.50-10.00) 10*3/uL RBC 2.55 L (4.10-5.20) 10*6/uL Hgb 7.7 L (12.0-15.0) g/dL Hct 24.7 L (37.2-46.3) % MCHC 31.2 L (32.0-37.0) g/dL Immature Gran # 0.41 H (0.00-0.04) 10*3/uL Neutrophils # 8.34 H (1.80-7.70) 10*3/uL Lymphocytes # 0.83 L (0.90-5.00) 10*3/uL Sodium 134 L (137-145) mmol/L Chloride 92 L (98-107) mmol/L Carbon Dioxide 38 H (22-30) mmol/L BUN 21 H (7-17) mg/dL Glucose 223 H (74-99) mg/dL POC Glucose (mg/dL) 283 H (70-110) mg/dL Calcium 7.3 L (8.4-10.2) mg/dL 10/18/24 Range/Units 05:51 WBC (4.50-10.00) 10*3/uL RBC (4.10-5.20) 10*6/uL Hgb (12.0-15.0) g/dL Hct (37.2-46.3) % MCHC (32.0-37.0) g/dL Immature Gran # (0.00-0.04) 10*3/uL Neutrophils # (1.80-7.70) 10*3/uL Lymphocytes # (0.90-5.00) 10*3/uL Sodium (137-145) mmol/L Chloride (98-107) mmol/L Carbon Dioxide (22-30) mmol/L BUN (7-17) mg/dL Glucose (74-99) mg/dL POC Glucose (mg/dL) 240 H (70-110) mg/dL Calcium (8.4-10.2) mg/dL
[2024-10-19 07:37] LABS: HGB 8.4 g/dL (12.0-15.0); MCH 29.9 pg (27.0-32.0); MCHC 31.1 g/dL (32.0-37.0); MCV 96.1 fL (80.0-97.0); Mean Platelet Volume 10.3 fL (9.5-12.2); Platelet Count 261 10*3/uL (140-440); RBC 2.81 10*6/uL (4.10-5.20); RDW 15.2 % (11.5-14.5); WBC 11.77 10*3/uL (4.50-10.00)
--- NOTE | 2024-10-19 08:40 | P.DS ---
Providers Date of admission: 10/10/24 22:16 Expected date of discharge: 10/19/24 Attending physician: Zeferino Oconnor Consults: 10/10/24 19:06 Consult Physician Routine Consulting Provider: Jesus Morales Consult Reason/Comments: Hyperkalemia Do you want consulting provider notified?: Yes 10/10/24 22:19 Consult Physician Routine Consulting Provider: Alton Frye Consult Reason/Comments: uti sepsis, hyperkalemia, edilson Do you want consulting provider notified?: Already Contacted 10/12/24 12:37 Consult Physician Stat Consulting Provider: Nancy Jackson Consult Reason/Comments: Possible STEMI Do you want consulting provider notified?: Yes 10/13/24 16:16 Consult Physician Routine Consulting Provider: Beto Ball Consult Reason/Comments: Blurry vision, rule out cva Do you want consulting provider notified?: Yes 10/15/24 11:33 Consult Physician Urgent Consulting Provider: Jordon Horan Consult Reason/Comments: Blurred vision, getting worse, known to him Do you want consulting provider notified?: Yes 10/15/24 13:46 Consult Physician Routine Consulting Provider: [facility] Consult Reason/Comments: Post Interventional patient Do you want consulting provider notified?: Already Contacted Primary care physician: Andrew Gonsales MD Hospital Course: Final diagnosis 1. UTI/sepsis/septic shock, present on admission, urine culture showing Klebsiella 2. Acute renal failure; likely prerenal azotemia, improving 3. Critical hyperkalemia, improving 4. elevated troponin; likely related to acute renal failure and septic shock; patient does have history of nonobstructive coronary artery disease, status post cardiac catheterization and underwent successful stenting of the mid LAD with Dr. Rosenberg 10/15/2024 5. Paroxysmal atrial fibrillation; patient is currently in NSR; anticoagulated with Eliquis, although currently on hold due to hematoma 6. Hypertension; antihypertensive medications remain on hold given septic shock; we will resume once patient is improved 7. Hyperlipidemia 8. Adrenal insufficiency; patient is maintained on Solu-Cortef 9. COPD; not in exacerbation; continue with home inhaler therapy 10. Obesity with a BMI 37.9 11. Generalized weakness with gait dysfunction, recommend PT/OT therapy evaluation GI prophylaxis DVT prophylaxis; SCD/Eliquis resumed 10/18/2024 per cardiology CODE STATUS; full code Discharge disposition Patient is being discharged in a stable condition with guarded prognosis to [facility]. Patient will follow-up with in the outpatient setting upon discharge. Patient is to continue with current medications and close outpatient follow-up with neurology, ophthalmology, cardiology, and pulmonary as scheduled. Total time taken is greater than 35 minutes. Hospital course 74-year-old female with multiple comorbidities states she has had 1 day of nausea vomiting abdominal pain. Patient is a poor historian states that she has had multiple bouts of emesis that appears to be bilious. She states that she is nauseated. Denies any fever chills or night sweats. States that her chronic back pain feels worse. Blood work completed in ED reveals a WBC of 15.7, hemoglobin of 12.7 and platelet count of 299, sodium of 135, potassium 6.5, BUN/creatinine of 47/4.23, blood glucose of 174, troponin elevated at 1.510 UA reveals large number of leukocyte esterase, WBCs and bacteria EKG reviewed, sinus rhythm, rate 94 bpm, no QRS widening or peaked T waves. Nonspecific mild ST depressions. Hyperkalemia was treated in the ED with a combination of insulin 10 units regular, D50 W amp, 1 g calcium gluconate, concentrated albuterol treatment, as well as 5 g of Lokelma. Patient is admitted to ICU for hypotension likely related to septic shock and is on Levophed 10/13/2024 -- the patient is seen and evaluated in room at bedside; remains in ICU as PCU overflow; patient is more awake and alert and the patient is communicating. -- The patient is afebrile. Hemodynamically stable. -- urine culture is positive for Klebsiella pneumonia and the patient remains on IV Invanz and the choice of antibiotics was made based on her extensive allergies. - white cell count is currently down to 10.04 with a hemoglobin of 8.7 and a platelet count of 185. Sodium is 141, creatinine continues to improve and is down to 1.26 with a BUN of 35. Potassium is at 3.8. Bicarb level is at 28. - patient remains on an insulin drip and she is known to have diabetes mellitus maintained on insulin pump on an outpatient basis. Plan is to to transition this patient to long-acting insulin with Lantus. The patient is also on stress dose hydrocortisone. This was given to her due to her underlying chronic adrenal sufficiency 10/14/2024 Patient is seen in follow-up in the ICU being followed by multiple consultations including cardiology and is currently at cardiac catheterization official report. Patient is continued on antibiotics for urinary tract infection with Klebsiella in the form of Invanz at this time. Will follow-up on repeat labs in a.m. 10/15/2024 Patient is seen in follow-up being followed by cardiology scheduled to undergo surgical intervention of the LAD with Dr. Rosenberg today and is tentatively planning for stenting of the LAD and will await official report. Patient is extremely anxious about the procedure with family at bedside comforting her. Patient is afebrile and denies chest pain although does report some shortness of breath. Patient currently n.p.o. and diet will be resumed once cleared by cardiology. Recommend repeat labs in the a.m. as white count was mildly elevated at 12 today although possibly reactive. 10/16/2024 Patient is seen in follow-up today continues in the ICU as an overflow and had stenting to the mid LAD with cardiology. Patient continues on telemetry monitoring being closely monitored making adjustments accordingly. Patient continues to report visual disturbances more so on the right with blurry vision and ophthalmology has been consulted although pending at this time per neurology. Unsure if there is ophthalmology coverage this week. Patient also continues on IV Invanz for Klebsiella urinary tract infection and will continue for now. Encouraged PT/OT therapy for evaluation as patient is significantly weak and has had prolonged hospitalization. Anticoagulation remains on hold secondary to a groin hematoma. Encourage sitting up in the chair more frequently and increased activity as tolerated. 10/17/2024 Patient is seen in the ICU as a downgrade once a bed is available. Patient with multiple consultations following is status post stenting to the mid LAD with cardiology recommending outpatient follow-up. Patient also being followed by neurology continues to have visual disturbances with blurry vision and unfortunately there is no ophthalmology available and discussed with neurology and patient will need follow-up with her director of supply chain Dr. Horan in the outpatient setting. Patient to follow-up with neurology outpatient as well. Patient is afebrile with no reports of worsening shortness of breath or chest pain. Patient not tolerating much of a diet and reports does not care for the food too much. Patient with extensive weakness evaluated by physical therapy recommending rehab and patient and family are agreeable. Case management following and is patient will require insurance authorization which will be submitted and pending. 10/18/2024 Patient has been transferred out of the ICU and slowly improving. Patient continues with significant weakness with multiple consultations following with cardiology recommending to resume Eliquis and monitoring overnight with repeat CBC. If CBC is stable patient is clear for discharge to [facility]. Patient has been accepted by [facility] and has received insurance authorization pending clearance from other consultations. There is no ophthalmology coverage and this was discussed with neurology and patient will follow-up with her primary director of supply chain Dr. Horan in the outpatient setting. 10/19/2024 Patient's hemoglobin is stable at 8.4 with no active bleeding noted maintained on Eliquis and Brilinta with multiple consultations following. Patient has been cleared by consultations recommending close outpatient follow-up including ophthalmology for continued visual disturbances. There is no ophthalmology coverage here at this time and patient will be following up with Dr. Horan outpatient. Recommend repeat labs in the next few days to monitor CBC and electrolytes along with kidney functions. Patient has been cleared by consultations. Please refer to consultation notes for further HPI. Currently no reports of chest pain, no worsening shortness of breath, or palpitations. Patient is afebrile. No reports of nausea or vomiting and patient is tolerating diet. Not much of an appetite although patient reports she does not care for the food here. Encourage small frequent meals and supplements between meals. Patient will be going to [facility] today for continued strength and mobility. Patient has had prolonged hospitalization and and significant weakness. Patient will also need close outpatient follow-up with cardiology as she was stented to the mid LAD and also recommending maximizing medical management in the outpatient setting. Given patient's significant comorbidities, patient is extremely high risk for rehospitalization. Please refer to medication reconciliation sheet for a list of medications. Physical exam: Gen: This is a 74-year-old female who is awake, alert and oriented x 2, well- developed, ill-appearing, obese, elderly appearing HEENT: Head is atraumatic, normocephalic. Pupils equal, round. Sclerae is anicteric. NECK: Supple. No JVD. No lymphadenopathy. No thyromegaly. LUNGS: Diminished breath sounds bilaterally with no wheezes or rhonchi. No intercostal retractions. HEART: S1, S2 are muffled ABDOMEN: Soft. Obese bowel sounds are present. No masses. No tenderness. EXTREMITIES: No pedal edema. No calf tenderness. NEUROLOGICAL: Patient is awake, alert and oriented x 2. Diffusely weak The impression and plan of care has been dictated by Yecenia Horan, Nurse Practitioner as directed. Dr. Pascale MD I have performed a history and examination and MDM of this patient, discussed the same with the dictator, and agree with the dictator's assessment and plan as written ,documented as a scribe. Based on total visit time, I have performed more than 50% of the visit. Patient Condition at Discharge: Fair Plan - Discharge Summary Discharge Rx Participant: No New Discharge Prescriptions: New Ticagrelor [Brilinta] 90 mg PO BID tab Insulin Glargine (Lantus) [Lantus Vial] 15 unit SQ BID@0700,2100 each Furosemide [Lasix] 40 mg PO DAILY #30 tablet Atorvastatin [Lipitor] 20 mg PO HS tab Mag Hydrox/Al Hydrox/Simeth [Maalox] 30 ml PO Q4HR PRN ml PRN Reason: Heartburn Nitroglycerin Sl Tabs [Nitrostat] 0.4 mg SUBLINGUAL Q5M PRN tab PRN Reason: Chest Pain Apixaban [Eliquis] 2.5 mg PO BID tab Folic Acid 1 mg PO DAILY tab INSULIN LISPRO (HumaLOG) [HumaLOG] 0 unit SQ ACHS each Lidocaine 4% Patch 1 patch TOPICAL DAILY patch Metoprolol Tartrate [Lopressor] 50 mg PO BID tab Acetaminophen Tab [Tylenol] 500 mg PO Q6HR PRN tab PRN Reason: Fever and/ or Pain 1-3 ALPRAZolam [Xanax] 0.25 mg PO Q6HR PRN #4 tab PRN Reason: Mild Anxiety Continue Meclizine [Antivert] 25 mg PO BID PRN PRN Reason: Vertigo Vitamin B-Complex Drops 1 drop PO BID Thiamine [Vitamin B-1] 100 mg PO HS L.acidoph,Paracasei, B.lactis [Probiotic] 2 cap PO BID Melatonin 5 mg PO HS PRN PRN Reason: Insomnia C,E,Zinc,Copper 11/Wgfps2m/Lut [Ocuvite Adult 50 Plus Softgel] 1 cap PO DAILY Brimonidine Tartrate [Alphagan P 0.2% Ophth Soln] 1 drop RIGHT EYE BID Pantoprazole Sodium [Protonix] 40 mg PO BID Folic Acid 800mcg With Folate 1333mg 1 tab PO HS buPROPion XL [Wellbutrin XL] 300 mg PO DAILY Iron 27mg 27 mg PO DAILY Scopolamine [Scopolamine 1 MG/72 HR patch] 1 patch TRANSDERM Q72H PRN PRN Reason: Nausea ARIPiprazole [Abilify] 10 mg PO HS Potassium Gluconate 99 mg PO DAILY Aspirin [Adult Low Dose Aspirin EC] 81 mg PO DAILY Promethazine [Phenergan] 25 mg PO BID PRN PRN Reason: Nausea Cyanocobalamin (Vitamin B-12) [Vitamin B-12] 2,500 mcg PO DAILY Dorzolamide 2% [Trusopt 2%] 1 drops RIGHT EYE BID Nystatin 100,000 Unit/gm Powd [Mycostatin Powder] 1 applic TOPICAL BID 7 Days #1 each amLODIPine [Norvasc] 10 mg PO DAILY #30 tab Hydrocortisone [Cortef] 20 mg PO DAILY Multivit-Min/Folic Acid/Iiv436 [Alive Premium Adult Multivit] 1 tab PO DAILY Cranberry Fruit Extract [Cranberry] 500 mg PO BID Dhea 50mg With B-12 2500mcg 1 tab PO HS Turmeric Complex 550mg 550 mg PO HS busPIRone HCl [Buspar] 10 mg PO BID #0 Ondansetron [Zofran] 4 mg PO TID PRN #20 tab PRN Reason: Nausea And Vomiting Albuterol Nebulized [Ventolin Nebulized] 2.5 mg INHALATION RT-QID PRN PRN Reason: Shortness Of Breath Hydrocortisone [Cortef] 10 mg PO HS HYDROcodone/APAP 10-325MG [Rutledge 10-325] 1 tab PO Q6H PRN #4 tab PRN Reason: Pain Discontinued Metoprolol Succinate [Toprol XL] 100 mg PO HS hydroCHLOROthiazide 25 mg PO DAILY lisinopriL [Zestril] 30 mg PO DAILY@1200 Insulin Aspart (For Pump) [NovoLOG (For Pump)] 0.01 unit SQ-PUMP CONTINUOUS Butalb/APAP/Caff 50-325-40Mg [Fioricet 50-325-40] 1 tab PO Q6H PRN #12 tab PRN Reason: Migraine Headache Magnesium Oxide [Mag-Ox] 400 mg PO BID Apixaban [Eliquis] 5 mg PO BID tab Spironolactone [Aldactone] 50 mg PO DAILY Rosuvastatin Calcium [Crestor] 5 mg PO HS Discharge Medication List Meclizine [Antivert] 25 mg PO BID PRN 11/26/17 [History] L.acidoph,Paracasei, B.lactis [Probiotic] 2 cap PO BID 10/08/18 [History] Melatonin 5 mg PO HS PRN 10/08/18 [History] Thiamine [Vitamin B-1] 100 mg PO HS 10/08/18 [History] Vitamin B-Complex Drops 1 drop PO BID 10/08/18 [History] C,E,Zinc,Copper 11/Imnxc1w/Lut [Ocuvite Adult 50 Plus Softgel] 1 cap PO DAILY 06/25/20 [History] Brimonidine Tartrate [Alphagan P 0.2% Ophth Soln] 1 drop RIGHT EYE BID 11/26/20 [History] Pantoprazole Sodium [Protonix] 40 mg PO BID 11/26/20 [History] Cranberry Fruit Extract [Cranberry] 500 mg PO BID 05/25/22 [History] Multivit-Min/Folic Acid/Gid175 [Alive Premium Adult Multivit] 1 tab PO DAILY 05/25/22 [History] Dhea 50mg With B-12 2500mcg 1 tab PO HS 04/27/23 [History] Folic Acid 800mcg With Folate 1333mg 1 tab PO HS 04/27/23 [History] buPROPion XL [Wellbutrin XL] 300 mg PO DAILY 09/20/23 [History] Iron 27mg 27 mg PO DAILY 09/23/23 [History] Turmeric Complex 550mg 550 mg PO HS 09/23/23 [History] ARIPiprazole [Abilify] 10 mg PO HS 03/10/24 [History] Potassium Gluconate 99 mg PO DAILY 03/10/24 [History] Scopolamine [Scopolamine 1 MG/72 HR patch] 1 patch TRANSDERM Q72H PRN 03/10/24 [History] Aspirin [Adult Low Dose Aspirin EC] 81 mg PO DAILY 05/06/24 [History] Promethazine [Phenergan] 25 mg PO BID PRN 05/06/24 [History] Cyanocobalamin (Vitamin B-12) [Vitamin B-12] 2,500 mcg PO DAILY 07/19/24 [History] Dorzolamide 2% [Trusopt 2%] 1 drops RIGHT EYE BID 07/19/24 [History] Nystatin 100,000 Unit/gm Powd [Mycostatin Powder] 1 applic TOPICAL BID 7 Days #1 each 07/26/24 [Rx] Ondansetron [Zofran] 4 mg PO TID PRN #20 tab 07/26/24 [Rx] amLODIPine [Norvasc] 10 mg PO DAILY #30 tab 07/26/24 [Rx] busPIRone HCl [Buspar] 10 mg PO BID #0 07/26/24 [Rx] Albuterol Nebulized [Ventolin Nebulized] 2.5 mg INHALATION RT-QID PRN 10/11/24 [History] Hydrocortisone [Cortef] 10 mg PO HS 10/11/24 [History] Hydrocortisone [Cortef] 20 mg PO DAILY 10/11/24 [History] ALPRAZolam [Xanax] 0.25 mg PO Q6HR PRN #4 tab 10/19/24 [Rx] Acetaminophen Tab [Tylenol] 500 mg PO Q6HR PRN tab 10/19/24 [Rx] Apixaban [Eliquis] 2.5 mg PO BID tab 10/19/24 [Rx] Atorvastatin [Lipitor] 20 mg PO HS tab 10/19/24 [Rx] Folic Acid 1 mg PO DAILY tab 10/19/24 [Rx] Furosemide [Lasix] 40 mg PO DAILY #30 tablet 10/19/24 [Rx] HYDROcodone/APAP 10-325MG [Rutledge 10-325] 1 tab PO Q6H PRN #4 tab 10/19/24 [Rx] INSULIN LISPRO (HumaLOG) [HumaLOG] 0 unit SQ ACHS each 10/19/24 [Rx] Insulin Glargine (Lantus) [Lantus Vial] 15 unit SQ BID@0700,2100 each 10/19/24 [Rx] Lidocaine 4% Patch 1 patch TOPICAL DAILY patch 10/19/24 [Rx] Mag Hydrox/Al Hydrox/Simeth [Maalox] 30 ml PO Q4HR PRN ml 10/19/24 [Rx] Metoprolol Tartrate [Lopressor] 50 mg PO BID tab 10/19/24 [Rx] Nitroglycerin Sl Tabs [Nitrostat] 0.4 mg SUBLINGUAL Q5M PRN tab 10/19/24 [Rx] Ticagrelor [Brilinta] 90 mg PO BID tab 10/19/24 [Rx] Follow up Appointment(s)/Referral(s): Juan Joe MD [STAFF PHYSICIAN] - 1 Week Andrew Gonsales MD [Primary Care Provider] - 1-2 days Martinez Cole DO [STAFF PHYSICIAN] - 1 Week Jordon Horan MD [STAFF PHYSICIAN] - 1 Week Ambulatory/Diagnostic Orders: Complete Blood Count w/diff [LAB.AMB] Time Frame: 2 Days, Location: None Selected Activity/Diet/Wound Care/Special Instructions: Patient is going to [facility] Activity as tolerated Recommend follow-up with primary director of supply chain outpatient Follow-up with neurology outpatient Follow-up with cardiology outpatient Follow-up with pulmonary outpatient Recommend repeat CBC, BMP in the next 2 to 3 days Discharge Disposition: TRANSFER TO SNF/ECF
[2024-10-19 08:46] VITALS: RESP 16; TEMP 97.9
[2024-10-19 11:56] LABS: Glucose,Whole Blood 122 mg/dL (70-110)
[2024-10-19 12:04] VITALS: BP 131/67; PULSE 66
--- NOTE | 2024-10-19 12:42 | P.PN ---
Subjective HISTORY OF PRESENT ILLNESS: Patient examined this morning at the bedside. Patient denies chest pain or pressure. She denies shortness of breath. Vital signs are stable. PHYSICAL EXAM: VITAL SIGNS: Reviewed. GENERAL: Well-developed in no acute distress. NECK: Supple. No JVD or thyromegaly LUNGS: Respirations even and unlabored. Lungs essentially clear to auscultation bilaterally. HEART: Regular rate and rhythm. S1 and S2 heard. EXTREMITIES: Normal range of motion. No clubbing or cyanosis. Peripheral pulses intact. No lower extremity edema ASSESSMENT: Gram-negative septicemia with UTI Septic shock Anion gap metabolic acidosis MARIO, resolving NSTEMI, S/p cardiac cath 10/14/24 showing severe flow limiting disease in mid LAD Prior history of CAD with intermediate 60% disease in proximal LAD from 2019 History of paroxysmal atrial fibrillation History of renal insufficiency Obstructive sleep apnea Obesity PLAN: Discontinue IV Lasix. Transition to oral Lasix Continue additional cardiac medications Patient is stable for discharge home today from a cardiac standpoint Nurse practitioner note has been reviewed by physician. Signing provider agrees with the documented findings, assessment, and plan of care documented by BRONZE CHASER as a scribe. Objective - Vital Signs Vital signs: Vital Signs Temp 97.9 F 10/19/24 08:00 Pulse 66 10/19/24 12:00 Resp 16 10/19/24 12:00 BP 131/67 10/19/24 12:00 Pulse Ox 94 L 10/19/24 12:00 FiO2 40 10/15/24 16:30 Intake & Output 10/18/24 10/19/24 10/19/24 18:59 06:59 18:59 Intake Total 120 Output Total 2585 400 2150 Balance -2465 -400 -2150 Weight 86 kg Intake: IV 120 0.9 KVO 120 Output: Urine 2585 400 2150 Other: Voiding Method Indwelling Catheter Indwelling Catheter Indwelling Catheter # Bowel Movements 2 1 ABP, PAP, CO, CI - Last Documented Arterial Blood Pressure 146/77 - Labs CBC & Chem 7: 10/19/24 07:15 10/18/24 04:49 Labs: Abnormal Lab Results - Last 24 Hours (Table) 10/18/24 10/18/24 10/19/24 Range/Units 16:35 20:01 05:51 WBC (4.50-10.00) 10*3/uL RBC (4.10-5.20) 10*6/uL Hgb (12.0-15.0) g/dL Hct (37.2-46.3) % MCHC (32.0-37.0) g/dL POC Glucose (mg/dL) 313 H 204 H 246 H (70-110) mg/dL 10/19/24 10/19/24 Range/Units 07:15 11:55 WBC 11.77 H (4.50-10.00) 10*3/uL RBC 2.81 L (4.10-5.20) 10*6/uL Hgb 8.4 L (12.0-15.0) g/dL Hct 27.0 L (37.2-46.3) % MCHC 31.1 L (32.0-37.0) g/dL POC Glucose (mg/dL) 122 H (70-110) mg/dL
--- NOTE | 2024-10-19 13:18 | P.PN ---
Subjective Progress Note Date: 10/19/24 Principal diagnosis: Acute urinary tract infection with sepsis and septic shock secondary to Klebsiella pneumonia Patient is a 74-year-old female with past medical history significant for hypertension, hyperlipidemia, diabetes mellitus, atrial fibrillation anticoagulated on Eliquis, obstructive sleep apnea with home CPAP, COPD, adrenal insufficiency, and recurrent urinary tract infections. Of note, patient had a recent hospitalization July, for urinary tract infection. Urine culture was remarkable for Klebsiella pneumonia at that time. No further treatment with antibiotics following her hospitalization in July. Presents the emergency department history evening with concerns of UTI. She was also noted to be hypotensive and tachycardic. With elevated WBC count. Workup in the emergency department including CT of the abdomen and pelvis which did not show any suspicious bowel obstructions or ileus. Bilateral renal cysts were noted. No stones or hydronephrosis. Found to be in acute kidney injury/failure. Creatinine 4.23. Urinalysis remarkable for pyuria and bacteriuria. Urine culture was sent. Potassium was critically elevated at 6.5. This was treated in the ED with a combination of insulin 10 units regular, D50 W amp, 1 g calcium gluconate, concentrated albuterol treatment, as well as 5 g of Lokelma. EKG reviewed, sinus rhythm, rate 94 bpm, no QRS widening or peaked T waves. Nonspecific mild ST depressions. She does take lisinopril, Aldactone, as well as, potassium supplements at home. Remaining blood work remarkable for a CBC with a WBC count of 15.7, hemoglobin 12.7, platelets 299. CMP: Sodium 135, potassium 6.5, chloride 105, serum bicarb 10, anion gap 20, BUN 47, creatinine 4.23, glucose 151. Lactic 1.6. LFTs not elevated. Troponin 1.51, probably related to poor renal clearance. Patient is currently being evaluated in the intensive care unit. She is alert and oriented. States over the last week she has had burning with urination accompanied with urinary frequency and right flank pain. Denies any hematuria. No documented fevers but has been chilled. She has been eating and drinking without issue up until 24 to 48 hours prior to ER presentation where she developed some nausea and vomiting with with eating and drinking. Denies hematochezia, melanotic stools, hematemesis. Denies abdominal pain. Mucous membranes appear dry. Blood pressures improved with fluid resuscitation. She has been fluid resuscitated with a total of 2 L normal saline in the ED and continues on normal saline at 130 mL/h. Heart rate is tachycardic. Not requiring any vasopressors at the moment. Empirically covered with Levaquin in the ED. She has multiple medication/antibiotic allergies. Repeat labs are pending. On 10/12/2024, the patient is being seen for a follow-up. The patient is currently off pressors. Hemodynamically stable. Vasopressin has been discontinued. Norepinephrine has been discontinued. Patient remains on a bicarb infusion at rate of 100 cc an hour. Fluid balance is +5.3 L negative patient remains on 3 Suboxone by nasal cannula. The patient's urine culture is showing gram-negative bacillus and the blood culture still pending. The patient remains on IV Invanz. The patient is also on stress dose hydrocortisone. The bicarb infusion will be discontinued the patient will be switched to a normal saline rate of 50 cc an hour. No other significant events overnight. She is awake and alert. Aspirin, Wellbutrin and BuSpar to be resumed. Blood sugars under better control for now. Renal function continues to improve and today's blood work shows a creatinine of 1.8 with a BUN of 37. Sodium is at 140 with a potassium level of 4. Serum bicarb is at 30,. White cell count 11, hemoglobin 9.2 and platelet count of 200. On today's evaluation of 10/13/2024, the patient is awake and alert and the patient is communicating. No hypotension. No pressors. No altered mentation. No chest pain. No pleurisy. No hemoptysis. Urine output is adequate. The patient is afebrile. Hemodynamically stable. Meanwhile, the patient's urine culture is positive for Klebsiella pneumonia and the patient remains on IV Invanz and the choice of antibiotics was made based on her extensive allergies. The white cell count is currently down to 10.04 with a hemoglobin of 8.7 and a platelet count of 185. Sodium is 141, creatinine continues to improve and is down to 1.26 with a BUN of 35. Potassium is at 3.8. Bicarb level is at 28. The patient remains on an insulin drip and she is known to have diabetes mellitus maintained on insulin pump on an outpatient basis. I am going to transition this patient to long-acting insulin with Lantus. The patient is also on stress dose hydrocortisone. This was given to her due to her underlying chronic adrenal sufficiency Seen today on 10/14/2024, patient remains in the ICU as an overflow, she is on 5 L nasal cannula, does not seem to be in distress, remains on Solu-Cortef she is also on Invanz and on Eliquis. Patient is being treated for Klebsiella pneumonia UTI and sepsis, she is hemodynamically stable today, not requiring any pressors, patient underwent cardiac catheterization today, she was found to have severe flow-limiting disease in the LAD and there was intermediate disease documented to be nonflow limiting involving the ramus intermedius and she was noted to have elevated left-sided filling pressures. Cardiology is planning staged PCI of the LAD given the fact that she reached her maximum amount of contrast. Patient does not seem to be in any distress WBC count is 8.6 hemoglobin 8.8 PTT is 49.8 electrolytes are normal BUN is 34 creatinine 1.06 Seen today on 10/15/2024, patient remains in the ICU, underwent cardiac catheteri zation yesterday, results as noted above patient may have to go for stenting of LAD today. Patient received fluids yesterday after her cardiac catheterization, however apparently she developed shortness of breath/acute pulmonary edema, today she is receiving diuretics, and patient did not use her BiPAP last night, will try to start her on BiPAP at bedside to use when she goes to bed tonight. Or she could use it as needed. WBC count is 7.9 hemoglobin 9.3 electrolytes are normal renal profile is normal BUN is 31 creatinine 0.86 Patient was seen today on 10/16/2024, remains in the ICU, patient underwent PCI yesterday, successful stenting of the mid LAD with an excellent angiographic results. However the patient developed a left groin hematoma, did not require any blood transfusion, she did have a drop of 1 g in her hemoglobin. Today the patient is complaining of minimal shortness of breath, no cough, no wheezing, patient did receive fluids yesterday after her cardiac catheterization but she is receiving Lasix this morning. WBC count 10.6 hemoglobin 7.7 electrolytes are normal renal profile is normal potassium is a bit low at 3.3. Seen today on 10/17/2024, remains in the ICU, patient is feeling better today, less shortness of breath, no chest pain, O2 sat is 99% on 2 L nasal cannula. WBC count is 11.7 hemoglobin 7.3 electrolytes are normal renal profile is normal, chest x-ray showed mild pulmonary vascular congestion but overall improved compared to baseline. Patient was seen today on 10/18/2024, patient continues to do well, feeling much better today, patient is relatively asymptomatic, remains generally weak, and the plan is to transfer the patient sometime later today to rehab. WBC count is 10.7 hemoglobin 7.7 electrolytes are normal renal profile is normal patient denies any cough wheezing or shortness of breath Patient was seen today on 10/19/2024, patient is doing well, supposed to go to rehab/ECF today. Patient is doing great, asymptomatic, no cough no wheezing no shortness of breath, remains generally weak. Labs today were reviewed her blood sugar is 122 WBC count is 11.7 hemoglobin 8.4 Objective - Vital Signs Vital signs: Vital Signs Temp 97.9 F 10/19/24 08:00 Pulse 66 10/19/24 12:00 Resp 16 10/19/24 12:00 BP 131/67 10/19/24 12:00 Pulse Ox 94 L 10/19/24 12:00 FiO2 40 10/15/24 16:30 Intake & Output 10/18/24 10/19/24 10/19/24 18:59 06:59 18:59 Intake Total 120 Output Total 2585 400 2150 Balance -2465 -400 -2150 Weight 86 kg Intake: IV 120 0.9 KVO 120 Output: Urine 2585 400 2150 Other: Voiding Method Indwelling Catheter Indwelling Catheter Indwelling Catheter # Bowel Movements 2 1 ABP, PAP, CO, CI - Last Documented Arterial Blood Pressure 146/77 - Exam GENERAL: Revealed 74-year-old female in no distress, on room air, patient used her own BiPAP last night when she went to sleep HEENT: PERRLA, EOMI, nonicteric no neck masses no JVD, moist mucous membranes. NECK: Supple, no JVD, no stridor. LUNGS: Diminished breath sounds at the bases no crackles rhonchi or wheezes HEART: S1-S2 audible 2/6 systolic murmur throughout the precordium ABDOMEN: Soft, nontender, no megaly no rebound no guarding EXTREMITIES: No edema, no clubbing, no cyanosis. Neuro: Alert oriented x 3 no gross focal neurologic deficit Psychiatric: Normal mood affect and no mental status examination Skin: Left groin hematoma is unchanged, resolving - Labs CBC & Chem 7: 10/19/24 07:15 10/18/24 04:49 Labs: Abnormal Lab Results - Last 24 Hours (Table) 10/18/24 10/18/24 10/19/24 Range/Units 16:35 20:01 05:51 WBC (4.50-10.00) 10*3/uL RBC (4.10-5.20) 10*6/uL Hgb (12.0-15.0) g/dL Hct (37.2-46.3) % MCHC (32.0-37.0) g/dL POC Glucose (mg/dL) 313 H 204 H 246 H (70-110) mg/dL 10/19/24 10/19/24 Range/Units 07:15 11:55 WBC 11.77 H (4.50-10.00) 10*3/uL RBC 2.81 L (4.10-5.20) 10*6/uL Hgb 8.4 L (12.0-15.0) g/dL Hct 27.0 L (37.2-46.3) % MCHC 31.1 L (32.0-37.0) g/dL POC Glucose (mg/dL) 122 H (70-110) mg/dL Assessment and Plan Assessment: Impression: Acute urinary tract infection secondary to Klebsiella pneumoniae with sepsis and septic shock Acute anion gap metabolic acidosis, resolved secondary to sepsis Acute kidney injury/acute tubular necrosis secondary to sepsis and septic shock Significant coronary artery disease as noted on cardiac catheterization, status post PCI of LAD on 10/15/2024 with successful outcome Obstructive sleep apnea syndrome History of adrenal insufficiency History of obstructive sleep apnea syndrome, patient has her own CPAP at bedside Obesity Dyslipidemia Benign essential hypertension History of paroxysmal atrial fibrillation Small left groin hematoma following cardiac catheterization/PCI/stent placement Recommendation: Cleared again for discharge if cleared by other consultants Continue diuretics Continue and tight platelet dual therapy Continue CPAP/BiPAP at night, patient uses her own Cleared from our perspective for discharge to ECF Time with Patient: Less than 30
[2024-10-20] MEDS ORDERED: FUROSEMIDE 40 MG TAB PO SCH (09:00)
--- NOTE | 2024-10-21 21:26 | CDI ---
Documentation Clarification Form Date: 10/21/2024 09:09:37 PM From: Massiel Fried Phone: Admit Date: 10/10/2024 10:16:00 PM Patient Name: Melissa Pena Visit Number: [id number] Discharge Date: 10/19/2024 03:59:00 PM ATTENTION: The Clinical Documentation Specialists (CDI) and [facility] Coding Staff appreciate your assistance in clarifying documentation. Please respond to the clarification below the line at the bottom and electronically sign. The CDI & [facility] Coding staff will review the response and follow-up if needed. Please note: Queries are made part of the Legal Health Record. If you have any questions, please contact the author of this message via ITS. Doctor/Provider: Lupe Ashraf Your patient is receiving the following: an insulin drip. Please clarify what condition/diagnosis is being treated. History/Risk Factors: 74yo F, Klebsiella UTI, sepsis w shock, DMII, NSTEMI II, MARIO, hyperK, PAF, HTN, HLD, COPD, adrenal insufficiency, obesity, generalized weakness, gaitdysfunction Clinical indicators: A1C 7.5 Glucose: 10/10 151 10/11 174-252 10/12 114-452 Home- Dexcom monitor system for her BG andinsulinpump Treatment: patient remains on an insulin drip and she is known to have diabetes mellitus maintained on insulinpumpOP. What diagnosis are you treating with the insulin drip? [ x ] Diabetes Mellitus II with hyperglycemia [ ] Due to (please specify cause, if known. i.e. - noncompliance, steroid use) [ ] Diabetes Mellitus II without complications [ ] No additional diagnosis [ ] Other, please specify [ ] Unable to determine (Template Last Revised: July 2020) MTDD
== END 2024-10-19 15:59 | DRG 853 ==
LOC: EC 17:11 → SUPCPDRO 17:11 → 2SICU 22:16 → 3SCARD 10-18 16:10
PROVIDERS: ADMIT Hospitalist; ATTEND Hospitalist
PROC: 03HY32Z Insertion of Monitoring Device into Upper Artery, Percutaneous Approach (ICD-10-PCS; 2024-10-11)
PROC: 4A133B1 Monitoring of Arterial Pressure, Peripheral, Percutaneous Approach (ICD-10-PCS; 2024-10-11)
PROC: 4A133J1 Monitoring of Arterial Pulse, Peripheral, Percutaneous Approach (ICD-10-PCS; 2024-10-11)
PROC: 02HV33Z Insertion of Infusion Device into Superior Vena Cava, Percutaneous Approach (ICD-10-PCS; 2024-10-11)
PROC: 3E043XZ Introduction of Vasopressor into Central Vein, Percutaneous Approach (ICD-10-PCS; 2024-10-11)
PROC: 4A023N7 Measurement of Cardiac Sampling and Pressure, Left Heart, Percutaneous Approach (ICD-10-PCS; 2024-10-14)
PROC: B2111ZZ Fluoroscopy of Multiple Coronary Arteries using Low Osmolar Contrast (ICD-10-PCS; 2024-10-14)
PROC: 4A033BC Measurement of Arterial Pressure, Coronary, Percutaneous Approach (ICD-10-PCS; 2024-10-14)
PROC: 027034Z Dilation of Coronary Artery, One Artery with Drug-eluting Intraluminal Device, Percutaneous Approach (ICD-10-PCS; principal; 2024-10-15 12:00)
PROC: 02F03ZZ Fragmentation in Coronary Artery, One Artery, Percutaneous Approach (ICD-10-PCS; 2024-10-15 12:00)
DX: A41.59 Other Gram-negative sepsis (principal); G93.41 Metabolic encephalopathy; N17.0 Acute kidney failure with tubular necrosis; R65.21 Severe sepsis with septic shock; J81.0 Acute pulmonary edema; I21.A1 Myocardial infarction type 2; J44.9 Chronic obstructive pulmonary disease, unspecified; E11.65 Type 2 diabetes mellitus with hyperglycemia; E66.9 Obesity, unspecified; I10 Essential (primary) hypertension; I65.21 Occlusion and stenosis of right carotid artery; I07.1 Rheumatic tricuspid insufficiency; E87.20 Acidosis, unspecified; E27.40 Unspecified adrenocortical insufficiency; N39.0 Urinary tract infection, site not specified; I48.0 Paroxysmal atrial fibrillation; Z79.4 Long term (current) use of insulin; H05.20 Unspecified exophthalmos; Z68.37 Body mass index [BMI] 37.0-37.9, adult; E86.1 Hypovolemia; R06.89 Other abnormalities of breathing; I25.10 Atherosclerotic heart disease of native coronary artery without angina pectoris; N28.1 Cyst of kidney, acquired; G47.33 Obstructive sleep apnea (adult) (pediatric); B96.1 Klebsiella pneumoniae [K. pneumoniae] as the cause of diseases classified elsewhere; H53.8 Other visual disturbances; G43.909 Migraine, unspecified, not intractable, without status migrainosus; H47.019 Ischemic optic neuropathy, unspecified eye; J34.89 Other specified disorders of nose and nasal sinuses; E87.5 Hyperkalemia; E78.5 Hyperlipidemia, unspecified; R26.9 Unspecified abnormalities of gait and mobility; Z96.41 Presence of insulin pump (external) (internal); Z79.01 Long term (current) use of anticoagulants; Z79.899 Other long term (current) drug therapy; Z79.82 Long term (current) use of aspirin; Z87.440 Personal history of urinary (tract) infections; Z88.1 Allergy status to other antibiotic agents; Z86.14 Personal history of Methicillin resistant Staphylococcus aureus infection; Z86.718 Personal history of other venous thrombosis and embolism; Z88.0 Allergy status to penicillin
CPT/HCPCS: 36415; 36600; 51702; 70450; 71045; 74176; 80048; 80053; 81001; 82272; 82607; 82746; 82805; 83036; 83605; 83735; 84132; 84484; 85025; 85027; 85610; 85652; 85730; 86140; 87040; 87077; 87086; 87186; 87636; 92972; 92978; 93005; 93308; 93458; 93799; 93880; 94640; 94660; 96361; 96374; 96375; 96376; 99291

== ENCOUNTER 2024-11-27 07:11 | Emergency (ER) | payer MEDICARE, BC ==
--- NOTE | 2024-11-27 07:30 | ED ---
General Adult HPI - General Chief complaint: Nausea/Vomiting/Diarrhea Stated complaint: NVD Time Seen by Provider: 11/27/24 07:16 Source: patient, EMS, RN notes reviewed Mode of arrival: EMS Limitations: no limitations - History of Present Illness Initial comments: 74-year-old female presents emergency room via EMS complaint nausea vomiting UTI. Patient states she was diagnosed with UTI last night states that she did not take any of her meds for this Presents today because she has some nausea with an episode of vomiting. She denies any localized abdominal pain she does have urinary frequency and dysuria she is complaining of her chronic pain and requesting Dilaudid at this time patient is well-known to the emergency department. Patient denies any new injuries. Patient offers no other complaints. - Related Data Home Medications Medication Instructions Recorded Confirmed Meclizine [Antivert] 25 mg PO BID PRN 11/26/17 10/11/24 L.acidoph,Paracasei, B.lactis 2 cap PO BID 10/08/18 10/11/24 [Probiotic] Melatonin 5 mg PO HS PRN 10/08/18 10/11/24 Thiamine [Vitamin B-1] 100 mg PO HS 10/08/18 10/11/24 Vitamin B-Complex Drops 1 drop PO BID 10/08/18 10/11/24 C,E,Zinc,Copper 11/Xeera8a/Lut 1 cap PO DAILY 06/25/20 10/11/24 [Ocuvite Adult 50 Plus Softgel] Brimonidine Tartrate [Alphagan P 1 drop RIGHT EYE BID 11/26/20 10/11/24 0.2% Ophth Soln] Pantoprazole Sodium [Protonix] 40 mg PO BID 11/26/20 10/11/24 Cranberry Fruit Extract [Cranberry] 500 mg PO BID 05/25/22 10/11/24 Multivit-Min/Folic Acid/Rim758 1 tab PO DAILY 05/25/22 10/11/24 [Alive Premium Adult Multivit] Dhea 50mg With B-12 2500mcg 1 tab PO HS 04/27/23 10/11/24 Folic Acid 800mcg With Folate 1 tab PO HS 04/27/23 10/11/24 1333mg buPROPion XL [Wellbutrin XL] 300 mg PO DAILY 09/20/23 10/11/24 Iron 27mg 27 mg PO DAILY 09/23/23 10/11/24 Turmeric Complex 550mg 550 mg PO HS 09/23/23 10/11/24 ARIPiprazole [Abilify] 10 mg PO HS 03/10/24 10/11/24 Potassium Gluconate 99 mg PO DAILY 03/10/24 10/11/24 Scopolamine [Scopolamine 1 MG/72 1 patch TRANSDERM Q72H PRN 03/10/24 10/11/24 HR patch] Aspirin [Adult Low Dose Aspirin EC] 81 mg PO DAILY 05/06/24 10/11/24 Promethazine [Phenergan] 25 mg PO BID PRN 05/06/24 10/11/24 Cyanocobalamin (Vitamin B-12) 2,500 mcg PO DAILY 07/19/24 10/11/24 [Vitamin B-12] Dorzolamide 2% [Trusopt 2%] 1 drops RIGHT EYE BID 07/19/24 10/11/24 Albuterol Nebulized [Ventolin 2.5 mg INHALATION RT-QID PRN 10/11/24 10/11/24 Nebulized] Hydrocortisone [Cortef] 10 mg PO HS 10/11/24 10/11/24 Hydrocortisone [Cortef] 20 mg PO DAILY 10/11/24 10/11/24 Previous Rx's Medication Instructions Recorded Nystatin 100,000 Unit/gm Powd 1 applic TOPICAL BID 7 Days #1 each 07/26/24 [Mycostatin Powder] Ondansetron [Zofran] 4 mg PO TID PRN #20 tab 07/26/24 amLODIPine [Norvasc] 10 mg PO DAILY #30 tab 07/26/24 busPIRone HCl [Buspar] 10 mg PO BID #0 07/26/24 ALPRAZolam [Xanax] 0.25 mg PO Q6HR PRN #4 tab 10/19/24 Acetaminophen Tab [Tylenol] 500 mg PO Q6HR PRN tab 10/19/24 Apixaban [Eliquis] 2.5 mg PO BID tab 10/19/24 Atorvastatin [Lipitor] 20 mg PO HS tab 10/19/24 Folic Acid 1 mg PO DAILY tab 10/19/24 Furosemide [Lasix] 40 mg PO DAILY #30 tablet 10/19/24 HYDROcodone/APAP 10-325MG [[place] 1 tab PO Q6H PRN #4 tab 10/19/24 10-325] INSULIN LISPRO (HumaLOG) [HumaLOG] 0 unit SQ ACHS each 10/19/24 Insulin Glargine (Lantus) [Lantus 15 unit SQ BID@0700,2100 each 10/19/24 Vial] Lidocaine 4% Patch 1 patch TOPICAL DAILY patch 10/19/24 Mag Hydrox/Al Hydrox/Simeth 30 ml PO Q4HR PRN ml 10/19/24 [Maalox] Metoprolol Tartrate [Lopressor] 50 mg PO BID tab 10/19/24 Nitroglycerin Sl Tabs [Nitrostat] 0.4 mg SUBLINGUAL Q5M PRN tab 10/19/24 Ticagrelor [Brilinta] 90 mg PO BID tab 10/19/24 Cephalexin [Keflex] 500 mg PO Q8HR #21 cap 11/27/24 Ondansetron Odt [Zofran Odt] 4 mg PO Q8HR PRN #10 tab 11/27/24 Allergies Allergy/AdvReac Type Severity Reaction Status Date / Time butorphanol tartrate Allergy BLISTERS Verified 10/11/24 08:30 [From Stadol] IN MOUTH ceftriaxone [From Rocephin] Allergy Rash/Hives Verified 10/11/24 08:30 clarithromycin [From Biaxin] Allergy Rash/Hives Verified 10/11/24 08:30 clindamycin Allergy Rash/Hives Verified 10/11/24 08:30 codeine Allergy Rash/Hives Verified 10/11/24 08:30 ergotamine tartrate Allergy Rash/Hives Verified 10/11/24 08:30 [From Cafergot] erythromycin base Allergy RASH, GI Verified 10/11/24 08:30 [From E-Mycin] SYMPTOMS ketorolac tromethamine Allergy Rash/Hives Verified 10/11/24 08:30 [From Toradol] liraglutide [From Victoza] Allergy Rash/Hives Verified 10/11/24 08:30 morphine Allergy Rash/Hives Verified 10/11/24 08:30 Penicillins Allergy Rash/Hives Verified 10/11/24 08:30 on upper body pentazocine lactate Allergy SEVERE Verified 10/11/24 08:30 [From Talwin] BLISTERS IN MOUTH pregabalin [From Lyrica] Allergy Rash/Hives Verified 10/11/24 08:30 propoxyphene HCl Allergy Rash/Hives Verified 10/11/24 08:30 [From Darvon] Sulfa (Sulfonamide Allergy Rash/Hives Verified 10/11/24 08:30 Antibiotics) sulfamethoxazole Allergy Rash/Hives Verified 10/11/24 08:30 [From Bactrim] tizanidine Allergy Unknown Verified 10/11/24 08:30 tramadol Allergy Unknown Verified 10/11/24 08:30 trimethoprim [From Bactrim] Allergy Rash/Hives Verified 10/11/24 08:30 vancomycin Allergy lip Verified 10/11/24 08:30 swelling metoclopramide [From Reglan] AdvReac Hallucinati Verified 10/11/24 08:30 ons monosodium glutamate [MSG] AdvReac Nausea & Verified 10/11/24 08:30 Vomiting nalbuphine HCl [From Nubain] AdvReac Nausea & Verified 10/11/24 08:30 Vomiting Review of Systems ROS Statement: Those systems with pertinent positive or pertinent negative responses have been documented in the HPI. ROS Other: All systems not noted in ROS Statement are negative. 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, DVT R calf in 1976, cardiac murmur, occipital neuraligia, balance issues-has narrowing of vessels "in the back of my head", vertigo, varicosities, states rt shoulder torn rotator cuff History of Any Multi-Drug Resistant Organisms: ESBL, MRSA, VRE Date of last positivie culture/infection: 11/25/20 ESBL;12/06/19 VRE; 03/10/11 MRSA MDRO Source:: Urine ESBL; Urine-VRE: MRSA 4th Right TOE Past Surgical History: Appendectomy, Back Surgery, Bladder Surgery, Breast Surgery, Cholecystectomy, Heart Catheterization, Hysterectomy, Orthopedic Surgery, Tonsillectomy Additional Past Surgical History / Comment(s): Lumbar fusions, bladder suspen becky, occipital nerve blocks, 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, R wrist/elbow nerve repair, bone removed R shoulder, 4th toe R foot partial amputation, bilateral feet/bunionectomies, R knee arthroscopies, R orbit decompression with ethmoidectomy and eyelid lift, EGD, colonoscopies, cystocopies, lithotripsy/stents, bilateral breast reduction, bilateral cataract removals, parathyroid surgery - April 2019, pain clinic procedures Past Anesthesia/Blood Transfusion Reactions: No Reported Reaction Additional Past Anesthesia/Blood Transfusion Reaction / Comment(s): never recieved blood Past Psychological History: Depression Smoking Status: Never smoker Past Alcohol Use History: None Reported Past Drug Use History: None Reported - Past Family History Father Family Medical History: Coronary Artery Disease (CAD), CVA/TIA, Diabetes Mellitus, Myocardial Infarction (ID), Pneumonia Additional Family Medical History / Comment(s): Father at the age of 78yrs from ID and pneumonia. Mother Family Medical History: Cancer, Congestive Heart Failure (CHF) Additional Family Medical History / Comment(s): Mother had uterine cancer. She recently at the age of 96yrs old from shingles. General Exam Limitations: no limitations General appearance: alert, in no apparent distress Head exam: Present: atraumatic, normocephalic, normal inspection Eye exam: Present: normal appearance, PERRL, EOMI. Absent: scleral icterus, conjunctival injection, periorbital swelling ENT exam: Present: normal exam, normal oropharynx, mucous membranes moist Neck exam: Present: normal inspection, full ROM. Absent: tenderness, meningismus, lymphadenopathy Respiratory exam: Present: normal lung sounds bilaterally. Absent: respiratory distress, wheezes, rales, rhonchi, stridor Cardiovascular Exam: Present: regular rate, normal rhythm, normal heart sounds. Absent: systolic murmur, diastolic murmur, rubs, gallop, clicks GI/Abdominal exam: Present: soft, normal bowel sounds. Absent: distended, tenderness, guarding, rebound, rigid Neurological exam: Present: alert, oriented X3 Skin exam: Present: warm, dry, intact, normal color. Absent: rash Course Vital Signs 11/27/24 11/27/24 11/27/24 07:15 08:31 10:13 Temperature 98.6 F Pulse Rate 67 68 62 Respiratory 19 19 20 Rate Blood Pressure 96/70 99/60 111/62 O2 Sat by Pulse 94 L 91 L 93 L Oximetry 11/27/24 11/27/24 11/27/24 10:19 10:39 11:14 Temperature Pulse Rate 74 61 75 Respiratory 16 18 19 Rate Blood Pressure 106/63 121/55 124/58 O2 Sat by Pulse 97 96 97 Oximetry Medical Decision Making - Medical Decision Making Was pt. sent in by a medical professional or institution (, PA, BUS ANALYST, urgent care, hospital, or [facility]...) When possible be specific @ -No Did you speak to anyone other than the patient for history (EMS, parent, family, police, friend...)? What history was obtained from this source @ -No Did you review nursing and triage notes (agree or disagree)? Why? @ -I reviewed and agree with nursing and triage notes Were old charts reviewed (outside hosp., previous admission, EMS record, old EKG, old radiological studies, urgent care reports/EKG's, [facility] records)? Report findings @ -No old charts were reviewed Differential Diagnosis (chest pain, altered mental status, abdominal pain women, abdominal pain men, vaginal bleeding, weakness, fever, dyspnea, syncope, headache, dizziness, GI bleed, back pain, seizure, CVA, palpatations, mental health, musculoskeletal)? @ -Differential Abdominal Pain Women: Appendicitis, Cholecystitis, diverticulosis, ischemic bowel, pancreatitis, hepatitis, UTI, gastroenteritis, AAA, incarcerated hernia, bowel obstruction, constipation, inflammatory bowel, hepatitis, peptic ulcer disease, splenic infarction, perforated viscus, vulvitis, ovarian torsion, PID, kidney stone, placenta abruption, this is not meant to be an all-inclusive list EKG interpreted by me (3pts min.). @ -None X-rays interpreted by me (1pt min.). @ -None done CT interpreted by me (1pt min.). @ -None done U/S interpreted by me (1pt. min.). @ -None done What testing was considered but not performed or refused? (CT, X-rays, U/S, labs)? Why? @ -None What meds were considered but not given or refused? Why? @ -None Did you discuss the management of the patient with other professionals (professionals i.e. , PA, BUS ANALYST, lab, RT, psych nurse, rn social work, waste duster, teacher, founder and chief technical officer, case management associate)? Give summary @ -No Was smoking cessation discussed for >3mins.? @ -No Was critical care preformed (if so, how long)? @ -No Were there social determinants of health that impacted care today? How? (Homelessness, low income, unemployed, alcoholism, drug addiction, tra nsportation, low edu. Level, literacy, decrease access to med. care, usp, rehab)? @ -No Was there de-escalation of care discussed even if they declined (Discuss DNR or withdrawal of care, Hospice)? DNR status @ -No What co-morbidities impacted this encounter? (DM, HTN, Smoking, COPD, CAD, Cancer, CVA, ARF, Chemo, Hep., AIDS, mental health diagnosis, sleep apnea, morbid obesity)? @ -None Was patient admitted / discharged? Hospital course, mention meds given and route, prescriptions, significant lab abnormalities, going to OR and other pertinent info. @ -[discharged patient is greatly improved she has no sign stress tolerating oral intake. Patient does have evidence of UTI asymptomatic will be started on Keflex as she states this is what she is not allergic to. Patient will have a urine culture sent. Patient will follow-up with PCP and return parameters discussed. Undiagnosed new problem with uncertain prognosis? @ -No Drug Therapy requiring intensive monitoring for toxicity (Heparin, Nitro, Insulin, Cardizem)? @ -No Were any procedures done? @ -No Diagnosis/symptom? @ -Nausea vomiting UTI Acute, or Chronic, or Acute on Chronic? @ -Acute Uncomplicated (without systemic symptoms) or Complicated (systemic symptoms)? @ -Complicated Side effects of treatment? @ -No Exacerbation, Progression, or Severe Exacerbation? @ -No Poses a threat to life or bodily function? How? (Chest pain, USA, ID, pneumonia, PE, COPD, DKA, ARF, appy, cholecystitis, CVA, Diverticulitis, Homicidal, Suici lorrie, threat to staff... and all critical care pts) @ -No - Lab Data Result diagrams: 11/27/24 07:48 11/27/24 08:12 Lab Results 11/27/24 11/27/24 11/27/24 Range/Units 07:48 08:12 10:13 WBC 11.00 H (4.50-10.00) 10*3/uL RBC 3.99 L (4.10-5.20) 10*6/uL Hgb 11.8 L D (12.0-15.0) g/dL Hct 36.8 L (37.2-46.3) % MCV 92.2 (80.0-97.0) fL MCH 29.6 (27.0-32.0) pg MCHC 32.1 (32.0-37.0) g/dL Plt Count 232 (140-440) 10*3/uL MPV 10.9 (9.5-12.2) fL Immature Gran % (Auto) 0.3 % Neutrophils % 81.3 % Lymphocytes % 8.3 % Monocytes % 6.4 % Eosinophils % 3.4 % Basophils % 0.3 % Immature Gran # 0.03 (0.00-0.04) 10*3/uL Neutrophils # 8.96 H (1.80-7.70) 10*3/uL Lymphocytes # 0.91 (0.90-5.00) 10*3/uL Monocytes # 0.70 (0.20-1.00) 10*3/uL Eosinophils # 0.37 H (0.04-0.35) 10*3/uL Basophils # 0.03 (0.00-0.10) 10*3/uL Sodium 138 (137-145) mmol/L Potassium 3.8 (3.5-5.1) mmol/L Chloride 101 (98-107) mmol/L Carbon Dioxide 28 (22-30) mmol/L Anion Gap 9 mmol/L BUN 27 H (7-17) mg/dL Creatinine 1.17 H (0.52-1.04) mg/dL Est GFR (CKD-EPI)AfAm 53 (>60 ml/min/1.73 sqM) Est GFR (CKD-EPI)NonAf 46 (>60 ml/min/1.73 sqM) Glucose 124 H (74-99) mg/dL Calcium 9.1 (8.4-10.2) mg/dL Total Bilirubin 0.3 (0.2-1.3) mg/dL AST 21 (14-36) U/L ALT 12 (4-34) U/L Alkaline Phosphatase 83 (38-126) U/L Total Protein 5.1 L (6.3-8.2) g/dL Albumin 3.1 L (3.5-5.0) g/dL Urine Color Colorless Urine Appearance Cloudy H (Clear) Urine pH 5.5 (5.0-8.0) Ur Specific [place] 1.013 (1.001-1.035) Urine Protein Negative (Negative) Urine Glucose (UA) Negative (Negative) Urine Ketones Negative (Negative) Urine Blood Negative (Negative) Urine Nitrite Negative (Negative) Urine Bilirubin Negative (Negative) Urine Urobilinogen <2.0 (<2.0) mg/dL Ur Leukocyte Esterase Large H (Negative) Urine RBC 2 (0-5) /hpf Urine WBC >182 H (0-5) /hpf Urine WBC Clumps Many H (None) /hpf Urine Bacteria Moderate H (None) /hpf Urine Mucus Rare H (None) /hpf Disposition Clinical Impression: Nausea & vomiting, UTI (urinary tract infection) Disposition: HOME SELF-CARE Condition: Stable Instructions (If sedation given, give patient instructions): Acute Nausea and Vomiting (ED) Additional Instructions: Please return to the Emergency Department if symptoms worsen or any other concerns. Prescriptions: Cephalexin [Keflex] 500 mg PO Q8HR #21 cap Ondansetron Odt [Zofran Odt] 4 mg PO Q8HR PRN #10 tab PRN Reason: Nausea Is patient prescribed a controlled substance at d/c from ED?: No Referrals: Andrew Gonsales MD [Primary Care Provider] - 1-2 days Time of Disposition: 11:37
[2024-11-27 08:17] LABS: Basophils # (A) 0.03 10*3/uL (0.00-0.10); Basophils % (A) 0.3 %; Eosinophils # (A) 0.37 10*3/uL (0.04-0.35); Eosinophils % (A) 3.4 %; HCT 36.8 % (37.2-46.3); Lymphocytes # (A) 0.91 10*3/uL (0.90-5.00); Lymphocytes % (A) 8.3 %; MCH 29.6 pg (27.0-32.0); MCHC 32.1 g/dL (32.0-37.0); MCV 92.2 fL (80.0-97.0); Mean Platelet Volume 10.9 fL (9.5-12.2); Monocytes % (A) 6.4 %; Neutrophils # (A) 8.96 10*3/uL (1.80-7.70); Neutrophils % (A) 81.3 %; Platelet Count 232 10*3/uL (140-440); RBC 3.99 10*6/uL (4.10-5.20)
[2024-11-27 08:19] LABS: HGB 11.8 g/dL (12.0-15.0)
[2024-11-27] MEDS: droPERidol 2.5 MG/ML VIAL IVP ONE (08:24)
[2024-11-27] MEDS: SODIUM CHLORIDE 0.9% 500 ML 500 ML IV STA (08:24)
[2024-11-27 09:29] LABS: ALT 12 U/L (4-34); AST 21 U/L (14-36); African American GFR (CKD) 53 (>60 ml/min/1.73 sqM); Albumin 3.1 g/dL (3.5-5.0); Alkaline Phosphatase 83 U/L (38-126); Anion Gap 9 mmol/L; Blood Urea Nitrogen 27 mg/dL (7-17); Calcium 9.1 mg/dL (8.4-10.2); Carbon Dioxide 28 mmol/L (22-30); Chloride 101 mmol/L (98-107); Glucose 124 mg/dL (74-99); Non-African American GFR(CKD) 46 (>60 ml/min/1.73 sqM); Potassium 3.8 mmol/L (3.5-5.1); Sodium 138 mmol/L (137-145); Total Bilirubin 0.3 mg/dL (0.2-1.3); Total Protein 5.1 g/dL (6.3-8.2)
[2024-11-27 10:46] LABS: Appearance,Urine Cloudy (Clear); Bacteria,Urine Moderate /hpf; Bilirubin,Urine Negative (Negative); Blood,Urine Negative (Negative); Color,Urine Colorless; Glucose,Urine (UA) Negative (Negative); Ketones,Urine Negative (Negative); Leukocyte Esterase,Urine Large (Negative); Mucus,Urine Rare /hpf; Nitrite,Urine Negative (Negative); PH, Urine 5.5 (5.0-8.0); Protein,Urine Negative (Negative); RBC,Urine 2 /hpf (0-5); Specific Gravity,Urine 1.013 (1.001-1.035); Urobilinogen,Urine <2.0 mg/dL (<2.0); WBC,Urine >182 /hpf (0-5)
[2024-11-27] MEDS: HYDROcodone/APAP 10-325MG 1 EACH TAB PO ONE (11:45)
[2024-11-27 12:15] VITALS: BP 111/79; PULSE 70; RESP 18; TEMP 98.2
== END 2024-11-27 12:37 | disposition home or self-care (01) ==
LOC: EC 07:11
DX: N39.0 Urinary tract infection, site not specified (principal); Z88.0 Allergy status to penicillin; Z88.1 Allergy status to other antibiotic agents; Z88.2 Allergy status to sulfonamides; Z88.5 Allergy status to narcotic agent; Z88.8 Allergy status to other drugs, medicaments and biological substances
CPT/HCPCS: 36415; 93005; 80053; 85025; 81001; 87086; 99284; 96374; 96361 ×2; J1790

== ENCOUNTER → 2024-12-02 | Outpatient (CLI) | payer MEDICARE, BC ==
[2024-12-03 02:56] LABS: T4, Free (Free Thyroxine) 0.88 ng/dL (0.80-1.80)
== END | disposition home or self-care (01) ==
LOC: LABWHC1 15:35
PROVIDERS: ATTEND Family Medicine
DX: R94.6 Abnormal results of thyroid function studies (principal)
CPT/HCPCS: 36415; 84439; 84443; 84480

== ENCOUNTER 2025-01-10 12:35 | Emergency (ER) | payer MEDICARE, BC ==
[2025-01-10 12:45] VITALS: TEMP 98.3
--- NOTE | 2025-01-10 12:58 | ED ---
General Adult HPI - General Chief complaint: Urogenital Stated complaint: Urogenital Time Seen by Provider: 01/10/25 12:48 Source: patient, RN notes reviewed Mode of arrival: ambulatory Limitations: no limitations - History of Present Illness Initial comments: Patient is a 74-year-old female present to the emergency department with concern for urinary tract infection. Patient states she has had similar symptoms multiple times previously. Patient states symptoms have been the past 4 days. Patient has dysuria. Patient has nausea and did vomit a couple times. Patient has right flank pain. No fever. - Related Data Home Medications Medication Instructions Recorded Confirmed Meclizine [Antivert] 25 mg PO BID PRN 11/26/17 10/11/24 L.acidoph,Paracasei, B.lactis 2 cap PO BID 10/08/18 10/11/24 [Probiotic] Melatonin 5 mg PO HS PRN 10/08/18 10/11/24 Thiamine [Vitamin B-1] 100 mg PO HS 10/08/18 10/11/24 Vitamin B-Complex Drops 1 drop PO BID 10/08/18 10/11/24 C,E,Zinc,Copper 11/Vrfak5p/Lut 1 cap PO DAILY 06/25/20 10/11/24 [Ocuvite Adult 50 Plus Softgel] Brimonidine Tartrate [Alphagan P 1 drop RIGHT EYE BID 11/26/20 10/11/24 0.2% Ophth Soln] Pantoprazole Sodium [Protonix] 40 mg PO BID 11/26/20 10/11/24 Cranberry Fruit Extract [Cranberry] 500 mg PO BID 05/25/22 10/11/24 Multivit-Min/Folic Acid/Ego791 1 tab PO DAILY 05/25/22 10/11/24 [Alive Premium Adult Multivit] Dhea 50mg With B-12 2500mcg 1 tab PO HS 04/27/23 10/11/24 Folic Acid 800mcg With Folate 1 tab PO HS 04/27/23 10/11/24 1333mg buPROPion XL [Wellbutrin XL] 300 mg PO DAILY 09/20/23 10/11/24 Iron 27mg 27 mg PO DAILY 09/23/23 10/11/24 Turmeric Complex 550mg 550 mg PO HS 09/23/23 10/11/24 ARIPiprazole [Abilify] 10 mg PO HS 03/10/24 10/11/24 Potassium Gluconate 99 mg PO DAILY 03/10/24 10/11/24 Scopolamine [Scopolamine 1 MG/72 1 patch TRANSDERM Q72H PRN 03/10/24 10/11/24 HR patch] Aspirin [Adult Low Dose Aspirin EC] 81 mg PO DAILY 05/06/24 10/11/24 Promethazine [Phenergan] 25 mg PO BID PRN 05/06/24 10/11/24 Cyanocobalamin (Vitamin B-12) 2,500 mcg PO DAILY 07/19/24 10/11/24 [Vitamin B-12] Dorzolamide 2% [Trusopt 2%] 1 drops RIGHT EYE BID 07/19/24 10/11/24 Albuterol Nebulized [Ventolin 2.5 mg INHALATION RT-QID PRN 10/11/24 10/11/24 Nebulized] Hydrocortisone [Cortef] 10 mg PO HS 10/11/24 10/11/24 Hydrocortisone [Cortef] 20 mg PO DAILY 10/11/24 10/11/24 Previous Rx's Medication Instructions Recorded Nystatin 100,000 Unit/gm Powd 1 applic TOPICAL BID 7 Days #1 each 07/26/24 [Mycostatin Powder] Ondansetron [Zofran] 4 mg PO TID PRN #20 tab 07/26/24 amLODIPine [Norvasc] 10 mg PO DAILY #30 tab 07/26/24 busPIRone HCl [Buspar] 10 mg PO BID #0 07/26/24 ALPRAZolam [Xanax] 0.25 mg PO Q6HR PRN #4 tab 10/19/24 Acetaminophen Tab [Tylenol] 500 mg PO Q6HR PRN tab 10/19/24 Apixaban [Eliquis] 2.5 mg PO BID tab 10/19/24 Atorvastatin [Lipitor] 20 mg PO HS tab 10/19/24 Folic Acid 1 mg PO DAILY tab 10/19/24 Furosemide [Lasix] 40 mg PO DAILY #30 tablet 10/19/24 HYDROcodone/APAP 10-325MG [[place] 1 tab PO Q6H PRN #4 tab 10/19/24 10-325] INSULIN LISPRO (HumaLOG) [HumaLOG] 0 unit SQ ACHS each 10/19/24 Insulin Glargine (Lantus) [Lantus 15 unit SQ BID@0700,2100 each 10/19/24 Vial] Lidocaine 4% Patch 1 patch TOPICAL DAILY patch 10/19/24 Mag Hydrox/Al Hydrox/Simeth 30 ml PO Q4HR PRN ml 10/19/24 [Maalox] Metoprolol Tartrate [Lopressor] 50 mg PO BID tab 10/19/24 Nitroglycerin Sl Tabs [Nitrostat] 0.4 mg SUBLINGUAL Q5M PRN tab 10/19/24 Ticagrelor [Brilinta] 90 mg PO BID tab 10/19/24 Cephalexin [Keflex] 500 mg PO Q8HR #21 cap 11/27/24 Ondansetron Odt [Zofran Odt] 4 mg PO Q8HR PRN #10 tab 11/27/24 Nitrofurantoin Monohyd/M-Cryst 100 mg PO Q12HR #10 cap 01/10/25 [Macrobid] Allergies Allergy/AdvReac Type Severity Reaction Status Date / Time butorphanol tartrate Allergy BLISTERS Verified 01/10/25 12:45 [From Stadol] IN MOUTH ceftriaxone [From Rocephin] Allergy Rash/Hives Verified 01/10/25 12:45 clarithromycin [From Biaxin] Allergy Rash/Hives Verified 01/10/25 12:45 clindamycin Allergy Rash/Hives Verified 01/10/25 12:45 codeine Allergy Rash/Hives Verified 01/10/25 12:45 ergotamine tartrate Allergy Rash/Hives Verified 01/10/25 12:45 [From Cafergot] erythromycin base Allergy RASH, GI Verified 01/10/25 12:45 [From E-Mycin] SYMPTOMS ketorolac tromethamine Allergy Rash/Hives Verified 01/10/25 12:45 [From Toradol] liraglutide [From Victoza] Allergy Rash/Hives Verified 01/10/25 12:45 morphine Allergy Rash/Hives Verified 01/10/25 12:45 Penicillins Allergy Rash/Hives Verified 01/10/25 12:45 on upper body pentazocine lactate Allergy SEVERE Verified 01/10/25 12:45 [From Talwin] BLISTERS IN MOUTH pregabalin [From Lyrica] Allergy Rash/Hives Verified 01/10/25 12:45 propoxyphene HCl Allergy Rash/Hives Verified 01/10/25 12:45 [From Darvon] Sulfa (Sulfonamide Allergy Rash/Hives Verified 01/10/25 12:45 Antibiotics) sulfamethoxazole Allergy Rash/Hives Verified 01/10/25 12:45 [From Bactrim] tizanidine Allergy Unknown Verified 01/10/25 12:45 tramadol Allergy Unknown Verified 01/10/25 12:45 trimethoprim [From Bactrim] Allergy Rash/Hives Verified 01/10/25 12:45 vancomycin Allergy lip Verified 01/10/25 12:45 swelling metoclopramide [From Reglan] AdvReac Hallucinati Verified 01/10/25 12:45 ons monosodium glutamate [MSG] AdvReac Nausea & Verified 01/10/25 12:45 Vomiting nalbuphine HCl [From Nubain] AdvReac Nausea & Verified 01/10/25 12:45 Vomiting Review of Systems ROS Statement: Those systems with pertinent positive or pertinent negative responses have been documented in the HPI. ROS Other: All systems not noted in ROS Statement are negative. Constitutional: Denies: fever Eyes: Denies: eye pain ENT: Denies: ear pain Respiratory: Denies: dyspnea Cardiovascular: Denies: chest pain Gastrointestinal: Reports: as per HPI, abdominal pain, nausea, vomiting Genitourinary: Reports: as per HPI, dysuria Musculoskeletal: Denies: back pain Past Medical History Past Medical History: Atrial Fibrillation, Diabetes Mellitus, Deep Vein Thrombosis (DVT), Fibromyalgia, Hyperlipidemia, Hypertension, Osteoarthritis (OA), Pneumonia, Renal Disease, Sleep Apnea/CPAP/BIPAP, Vascular Disorder Additional Past Medical History / Comment(s): Pt recently admitted to [facility] with R flank pain and UTI 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, DVT R calf in 1976, cardiac murmur, occipital neuraligia, balance issues-has narrowing of vessels "in the back of my head", vertigo, varicosities, states rt shoulder torn rotator cuff History of Any Multi-Drug Resistant Organisms: ESBL, MRSA, VRE Date of last positivie culture/infection: 11/25/20 ESBL;12/06/19 VRE; 03/10/11 MRSA MDRO Source:: Urine ESBL; Urine-VRE: MRSA 4th Right TOE Past Surgical History: Appendectomy, Back Surgery, Bladder Surgery, Breast Surgery, Cholecystectomy, Heart Catheterization, Hysterectomy, Orthopedic Surgery, Tonsillectomy Additional Past Surgical History / Comment(s): Lumbar fusions, bladder suspension, occipital nerve blocks, 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, R wrist/elbow nerve repair, bone removed R shoulder, 4th toe R foot partial amputation, bilateral feet/bunionectomies, R knee arthroscopies, R orbit decompression with ethmoidectomy and eyelid lift, EGD, colonoscopies, cystocopies, lithotripsy/stents, bilateral breast reduction, bilateral cataract removals, parathyroid surgery - April 2019, pain clinic procedures Past Anesthesia/Blood Transfusion Reactions: No Reported Reaction Additional Past Anesthesia/Blood Transfusion Reaction / Comment(s): never reci eved blood Past Psychological History: Depression Smoking Status: Never smoker Past Alcohol Use History: None Reported Past Drug Use History: None Reported - Past Family History Father Family Medical History: Coronary Artery Disease (CAD), CVA/TIA, Diabetes Mellitus, Myocardial Infarction (OR), Pneumonia Additional Family Medical History / Comment(s): Father at the age of 78yrs from OR and pneumonia. Mother Family Medical History: Cancer, Congestive Heart Failure (CHF) Additional Family Medical History / Comment(s): Mother had uterine cancer. She recently at the age of 96yrs old from shingles. General Exam Limitations: no limitations General appearance: alert, in no apparent distress Head exam: Present: normocephalic Eye exam: Present: normal appearance Neck exam: Present: normal inspection Respiratory exam: Present: normal lung sounds bilaterally Cardiovascular Exam: Present: regular rate, normal rhythm GI/Abdominal exam: Present: soft, tenderness (Mild tenderness right lateral flank). Absent: distended, guarding, rebound, rigid, pulsatile mass Extremities exam: Present: normal inspection Back exam: Present: CVA tenderness (R) Neurological exam: Present: alert Psychiatric exam: Present: normal affect, normal mood Skin exam: Present: normal color Course Vital Signs 01/10/25 12:42 Temperature 98.3 F Pulse Rate 66 Respiratory 22 Rate Blood Pressure 129/75 O2 Sat by Pulse 97 Oximetry Medical Decision Making - Medical Decision Making Was pt. sent in by a medical professional or institution (, PA, PROGRAM PARAPROFESSIONAL, urgent care, hospital, or alf...) When possible be specific @ -No Did you speak to anyone other than the patient for history (EMS, parent, family, police, friend...)? What history was obtained from this source @ -No Did you review nursing and triage notes (agree or disagree)? Why? @ -I reviewed and agree with nursing and triage notes Were old charts reviewed (outside hosp., previous admission, EMS record, old EKG, old radiological studies, urgent care reports/EKG's, alf records)? Report findings @ -No old charts were reviewed Differential Diagnosis (chest pain, altered mental status, abdominal pain women, abdominal pain men, vaginal bleeding, weakness, fever, dyspnea, syncope, headache, dizziness, GI bleed, back pain, seizure, CVA, palpatations, mental health, musculoskeletal)? @ -Differential Abdominal Pain Women: Appendicitis, Cholecystitis, diverticulosis, ischemic bowel, pancreatitis, hepatitis, UTI, gastroenteritis, AAA, incarcerated hernia, bowel obstruction, constipation, inflammatory bowel, hepatitis, peptic ulcer disease, splenic infarction, perforated viscus, vulvitis, ovarian torsion, PID, kidney stone, placenta abruption, this is not meant to be an all-inclusive list EKG interpreted by me (3pts min.). @ -As above X-rays interpreted by me (1pt min.). @ -None done CT interpreted by me (1pt min.). @ -None done U/S interpreted by me (1pt. min.). @ -None done What testing was considered but not performed or refused? (CT, X-rays, U/S, labs)? Why? @ -None What meds were considered but not given or refused? Why? @ -None Did you discuss the management of the patient with other professionals (p rofessionals i.e. , PA, PROGRAM PARAPROFESSIONAL, lab, RT, psych nurse, social group worker, manager safe, teacher, air antisubmarine officer, case monitor)? Give summary @ -No Was smoking cessation discussed for >3mins.? @ -No Was critical care preformed (if so, how long)? @ -No Were there social determinants of health that impacted care today? How? (Homelessness, low income, unemployed, alcoholism, drug addiction, transportation, low edu. Level, literacy, decrease access to med. care, [place] [facility], rehab)? @ -No Was there de-escalation of care discussed even if they declined (Discuss DNR or withdrawal of care, Hospice)? DNR status @ -No What co-morbidities impacted this encounter? (DM, HTN, Smoking, COPD, CAD, Cancer, CVA, ARF, Chemo, Hep., AIDS, mental health diagnosis, sleep apnea, morbid obesity)? @ -Previous urinary tract infections, chronic pain Was patient admitted / discharged? Hospital course, mention meds given and rout e, prescriptions, significant lab abnormalities, going to OR and other pertinent info. @ -Patient presents with right flank pain and dysuria. Patient convinced she has a urinary tract infection. Urinalysis does have 14 white cells. Patient will be covered with short duration of antibiotics. Patient states she still has pain and usually she receives Dilaudid. Patient is updated on results and need for follow-up Undiagnosed new problem with uncertain prognosis? @ -No Drug Therapy requiring intensive monitoring for toxicity (Heparin, Nitro, Insulin, Cardizem)? @ -No Were any procedures done? @ -No Diagnosis/symptom? @ -Dysuria Acute, or Chronic, or Acute on Chronic? @ -Acute Uncomplicated (without systemic symptoms) or Complicated (systemic symptoms)? @ -Default Side effects of treatment? @ -No Exacerbation, Progression, or Severe Exacerbation? @ -No Poses a threat to life or bodily function? How? (Chest pain, USA, OR, pneumonia, PE, COPD, DKA, ARF, appy, cholecystitis, CVA, Diverticulitis, Homicidal, Suicidal, threat to staff... and all critical care pts) @ -No - Lab Data Result diagrams: 01/10/25 13:25 01/10/25 13:25 Lab Results 01/10/25 01/10/25 01/10/25 Range/Units 13:25 13:25 13:38 WBC 8.93 (4.50-10.00) 10*3/uL RBC 4.38 (4.10-5.20) 10*6/uL Hgb 12.5 (12.0-15.0) g/dL Hct 39.5 (37.2-46.3) % MCV 90.2 (80.0-97.0) fL MCH 28.5 (27.0-32.0) pg MCHC 31.6 L (32.0-37.0) g/dL Plt Count 212 (140-440) 10*3/uL MPV 10.4 (9.5-12.2) fL Immature Gran % (Auto) 0.7 % Neutrophils % 71.6 % Lymphocytes % 15.8 % Monocytes % 8.8 % Eosinophils % 2.7 % Basophils % 0.4 % Immature Gran # 0.06 H (0.00-0.04) 10*3/uL Neutrophils # 6.39 (1.80-7.70) 10*3/uL Lymphocytes # 1.41 (0.90-5.00) 10*3/uL Monocytes # 0.79 (0.20-1.00) 10*3/uL Eosinophils # 0.24 (0.04-0.35) 10*3/uL Basophils # 0.04 (0.00-0.10) 10*3/uL Sodium 136 L (137-145) mmol/L Potassium 5.1 (3.5-5.1) mmol/L Chloride 106 (98-107) mmol/L Carbon Dioxide 18 L (22-30) mmol/L Anion Gap 12 mmol/L BUN 30 H (7-17) mg/dL Creatinine 1.05 H (0.52-1.04) mg/dL Est GFR (CKD-EPI)AfAm 60 (>60 ml/min/1.73 sqM) Est GFR (CKD-EPI)NonAf 52 (>60 ml/min/1.73 sqM) Glucose 116 H (74-99) mg/dL Calcium 9.6 (8.4-10.2) mg/dL Total Bilirubin 0.5 (0.2-1.3) mg/dL AST 20 (14-36) U/L ALT 12 (4-34) U/L Alkaline Phosphatase 67 (38-126) U/L Total Protein 6.5 (6.3-8.2) g/dL Albumin 4.3 (3.5-5.0) g/dL Amylase 48 (30-110) U/L Lipase 54 (23-300) U/L Urine Color Colorless Urine Appearance Clear (Clear) Urine pH 5.5 (5.0-8.0) Ur Specific Ivel 1.014 (1.001-1.035) Urine Protein Negative (Negative) Urine Glucose (UA) Negative (Negative) Urine Ketones Negative (Negative) Urine Blood Negative (Negative) Urine Nitrite Negative (Negative) Urine Bilirubin Negative (Negative) Urine Urobilinogen <2.0 (<2.0) mg/dL Ur Leukocyte Esterase Moderate H (Negative) Urine RBC 1 (0-5) /hpf Urine WBC 14 H (0-5) /hpf Ur Squamous Epith Cells <1 (0-4) /hpf Urine Mucus Rare H (None) /hpf Disposition Clinical Impression: Dysuria Disposition: HOME SELF-CARE Condition: Stable Instructions (If sedation given, give patient instructions): Urinary Tract Infection in Women (ED) Additional Instructions: Prescription sent to pharmacy. Please do follow-up with your primary care physician in the next couple of days for recheck. Return for increased pain, fever, change or worsening symptoms or any other concerns. Prescriptions: Nitrofurantoin Monohyd/M-Cryst [Macrobid] 100 mg PO Q12HR #10 cap Is patient prescribed a controlled substance at d/c from ED?: No Referrals: Andrew Gonsales MD [Primary Care Provider] - 1-2 days Time of Disposition: 14:22
[2025-01-10 13:37] LABS: Basophils # (A) 0.04 10*3/uL (0.00-0.10); Basophils % (A) 0.4 %; Eosinophils # (A) 0.24 10*3/uL (0.04-0.35); Eosinophils % (A) 2.7 %; HCT 39.5 % (37.2-46.3); HGB 12.5 g/dL (12.0-15.0); Lymphocytes # (A) 1.41 10*3/uL (0.90-5.00); Lymphocytes % (A) 15.8 %; MCH 28.5 pg (27.0-32.0); MCHC 31.6 g/dL (32.0-37.0); MCV 90.2 fL (80.0-97.0); Monocytes # (A) 0.79 10*3/uL (0.20-1.00); Monocytes % (A) 8.8 %; Neutrophils # (A) 6.39 10*3/uL (1.80-7.70); Neutrophils % (A) 71.6 %; Platelet Count 212 10*3/uL (140-440); RBC 4.38 10*6/uL (4.10-5.20); RDW 13.7 % (11.5-14.5); WBC 8.93 10*3/uL (4.50-10.00)
[2025-01-10 13:52] LABS: ALT 12 U/L (4-34); AST 20 U/L (14-36); African American GFR (CKD) 60 (>60 ml/min/1.73 sqM); Albumin 4.3 g/dL (3.5-5.0); Alkaline Phosphatase 67 U/L (38-126); Amylase 48 U/L (30-110); Anion Gap 12 mmol/L; Blood Urea Nitrogen 30 mg/dL (7-17); Calcium 9.6 mg/dL (8.4-10.2); Carbon Dioxide 18 mmol/L (22-30); Chloride 106 mmol/L (98-107); Glucose 116 mg/dL (74-99); Lipase 54 U/L (23-300); Non-African American GFR(CKD) 52 (>60 ml/min/1.73 sqM); Potassium 5.1 mmol/L (3.5-5.1); Sodium 136 mmol/L (137-145); Total Protein 6.5 g/dL (6.3-8.2)
[2025-01-10 13:55] LABS: Bilirubin,Urine Negative (Negative); Blood,Urine Negative (Negative); Color,Urine Colorless; Glucose,Urine (UA) Negative (Negative); Ketones,Urine Negative (Negative); Leukocyte Esterase,Urine Moderate (Negative); Mucus,Urine Rare /hpf; Nitrite,Urine Negative (Negative); PH, Urine 5.5 (5.0-8.0); Protein,Urine Negative (Negative); RBC,Urine 1 /hpf (0-5); Specific Gravity,Urine 1.014 (1.001-1.035); Squamous Epithelial Cell,Urine <1 /hpf (0-4); Urobilinogen,Urine <2.0 mg/dL (<2.0); WBC,Urine 14 /hpf (0-5)
[2025-01-10] MEDS: SODIUM CHLORIDE 0.9% 1,000 ML IV SCH (13:58)
[2025-01-10] MEDS: ONDANSETRON 4 MG/2 ML VIAL IVP STA (13:58)
[2025-01-10] MEDS: ACETAMINOPHEN IV (For NPO) 1,000 MG in EMPTY BAG 1 BAG IVPB STA (13:58)
--- NOTE | 2025-01-10 14:15 | CT ---
EXAMINATION TYPE: CT abdomen pelvis wo con CT DLP: 740.8 mGycm, Automated exposure control for dose reduction was used. DATE OF EXAM: 01/10/2025 2:05 PM COMPARISON: Multiple CT abdomen pelvis most recent from 10/10/2024 . CLINICAL INDICATION:Female, 74 years old with history of abdominal pain; UTI symptoms and left flank pain TECHNIQUE: Standard CT of the abdomen and pelvis without IV or oral contrast. Lack of IV or oral co ntrast limits evaluation of solid and hollow organ viscera. Coronal and sagittal reformats were perfo rmed. FINDINGS: LOWER CHEST: Cardiomegaly. Moderate to severe coronary arterial calcifications. Mild bilateral lower lobe dependent subsegmental atelectasis. Right breast dystrophic calcification. ABDOMEN LIVER: Unremarkable noncontrast appearance. GALLBLADDER AND BILE DUCTS: The gallbladder is surgically absent. No biliary ductal dilatation. PANCREAS: Unremarkable noncontrast appearance. SPLEEN: Unremarkable noncontrast appearance. ADRENAL GLANDS: Unremarkable noncontrast appearance.. KIDNEYS AND URETERS: No evidence of hydronephrosis. No right renal calculus. Punctate nonobstructing left renal calculi. Stable right mid kidney 3.2 cm simple cyst. Stable anterior left mid kidney exoph ytic 4.4 center simple cyst. No follow-up recommended. PELVIS BLADDER: Unremarkable REPRODUCTIVE: The uterus is surgically absent. Calcification at the vaginal cuff. ABDOMEN & PELVIS STOMACH AND BOWEL: Stomach and duodenum are unremarkable. No bowel wall thickening or surrounding inf lammatory changes. The appendix is not definitively visualized. No surrounding inflammatory changes i dentified. No evidence of bowel obstruction. PERITONEUM: No evidence of pneumoperitoneum or free fluid. VASCULATURE: Mild to moderate atherosclerotic calcifications are present throughout the abdominal aor ta and its branches. No evidence of aortic aneurysm. Multiple pelvic phleboliths. MUSCULOSKELETAL: No acute osseous abnormalities. Postsurgical changes with bilateral pedicular screws and rods involving L3-S1. Hardware appears intact. Multilevel degenerative disc disease. Remote appe aring Schmorl's node versus superior endplate compression deformity involving the T8 vertebral body. Remote healed fractures of the bilateral superior and inferior pubic rami. LYMPH NODES: No gross evidence for lymphadenopathy. SOFT TISSUE/ABDOMINAL WALL: Multiple bilateral gluteal subcutaneous tissue calcification granulomas. Fat filled bilateral small inguinal hernias. IMPRESSION: No evidence for obstructive uropathy. Punctate nonobstructing left renal calculi. [facility], , 01/10/2025 2:13 PM
[2025-01-10] MEDS: HYDROmorphone 0.5 MG/0.5 ML SYRINGE IVP STA (14:32)
[2025-01-10 14:53] VITALS: BP 153/78; PULSE 75; RESP 18
== END 2025-01-10 14:53 | disposition home or self-care (01) ==
LOC: EC 12:35
DX: R30.0 Dysuria (principal); Z88.0 Allergy status to penicillin; Z88.8 Allergy status to other drugs, medicaments and biological substances; Z88.1 Allergy status to other antibiotic agents; Z88.2 Allergy status to sulfonamides; Z88.5 Allergy status to narcotic agent; Z88.6 Allergy status to analgesic agent
CPT/HCPCS: 36415; 80053; 82150; 83690; 85025; 81001; 87086; 87077; 87186; 74176; 99284; 96365; 96375 ×2; 96361; J2405; J0131; J1171

== ENCOUNTER 2025-01-12 12:32 | Emergency (ER) | payer MEDICARE, BC ==
[2025-01-12 14:11] VITALS: RESP 18
[2025-01-12] MEDS: SODIUM CHLORIDE 0.9% 1,000 ML IV ONE (14:29)
[2025-01-12] MEDS: HYDROmorphone 0.5 MG/0.5 ML SYRINGE IVP STA ×2 (14:29→16:46)
[2025-01-12] MEDS: ONDANSETRON 4 MG/2 ML VIAL IVP STA (14:29)
[2025-01-12 14:41] LABS: Basophils # (A) 0.03 10*3/uL (0.00-0.10); Basophils % (A) 0.3 %; Eosinophils # (A) 0.23 10*3/uL (0.04-0.35); Eosinophils % (A) 2.6 %; HCT 36.9 % (37.2-46.3); HGB 11.9 g/dL (12.0-15.0); Lymphocytes # (A) 1.16 10*3/uL (0.90-5.00); Lymphocytes % (A) 13.2 %; MCH 28.8 pg (27.0-32.0); MCHC 32.2 g/dL (32.0-37.0); MCV 89.3 fL (80.0-97.0); Monocytes # (A) 0.79 10*3/uL (0.20-1.00); Monocytes % (A) 9.0 %; Neutrophils # (A) 6.55 10*3/uL (1.80-7.70); Neutrophils % (A) 74.4 %; Platelet Count 244 10*3/uL (140-440); RBC 4.13 10*6/uL (4.10-5.20); RDW 14.1 % (11.5-14.5); WBC 8.80 10*3/uL (4.50-10.00)
[2025-01-12 15:00] LABS: ALT 13 U/L (4-34); AST 17 U/L (14-36); African American GFR (CKD) 43 (>60 ml/min/1.73 sqM); Albumin 4.3 g/dL (3.5-5.0); Alkaline Phosphatase 76 U/L (38-126); Anion Gap 12 mmol/L; Blood Urea Nitrogen 34 mg/dL (7-17); Calcium 9.5 mg/dL (8.4-10.2); Carbon Dioxide 19 mmol/L (22-30); Chloride 109 mmol/L (98-107); Glucose 101 mg/dL (74-99); Non-African American GFR(CKD) 37 (>60 ml/min/1.73 sqM); Potassium 4.4 mmol/L (3.5-5.1); Sodium 140 mmol/L (137-145); Total Protein 6.4 g/dL (6.3-8.2)
[2025-01-12 15:01] LABS: Bilirubin,Urine Negative (Negative); Blood,Urine Small (Negative); Color,Urine Colorless; Glucose,Urine (UA) Negative (Negative); Ketones,Urine Negative (Negative); Leukocyte Esterase,Urine Small (Negative); Mucus,Urine Rare /hpf; Nitrite,Urine Negative (Negative); PH, Urine 5.5 (5.0-8.0); Protein,Urine Negative (Negative); RBC,Urine 6 /hpf (0-5); Specific Gravity,Urine 1.015 (1.001-1.035); Squamous Epithelial Cell,Urine 1 /hpf (0-4); Urobilinogen,Urine <2.0 mg/dL (<2.0); WBC,Urine 7 /hpf (0-5)
--- NOTE | 2025-01-12 15:54 | US ---
EXAMINATION TYPE: US renals and bladder DATE OF EXAM: 01/12/2025 COMPARISON: CT 01/10/25 CLINICAL INDICATION: Female, 74 years old with history of eval for right side hydronephrosis; UTI, se slim right flank pain TECHNIQUE: Grayscale imaging of the bilateral kidneys and urinary bladder: FINDINGS: EXAM MEASUREMENTS: Right Kidney: 9.7 x 4.1 x 4.6 cm Left Kidney: 9.1 x 4.3 x 4.5 cm Right Kidney: No hydronephrosis, largest anechoic cyst measures 3.0 x 2.9 x 3.0 cm Left Kidney: No hydronephrosis, largest anechoic cyst measures 3.9 x 4.1 x 3.4 cm Bladder: wnl There is no evidence for hydronephrosis at this point in time. No nephrolithiasis is seen. No leodan s are identified. The urinary bladder is anechoic. exam limited by bowel gas and body habitus IMPRESSION: No evidence of acute obstructive uropathy/hydronephrosis. [facility], , 01/12/2025 3:52 PM
--- NOTE | 2025-01-12 16:37 | ED ---
General Adult HPI - General Chief complaint: Urogenital Stated complaint: Urogenital Time Seen by Provider: 01/12/25 13:42 Source: patient, RN notes reviewed, old records reviewed Mode of arrival: ambulatory Limitations: no limitations - History of Present Illness Initial comments: 74-year-old female who complains of right kidney pain in the setting of recently diagnosed UTI. Was sent home on Macrobid a few days ago. Urine culture is not completed at this time. States she is having increased pain today. Is a chronic pain patient on [place] at home. Has no other acute complaints. Some mild nausea. No chest pain. No other acute complaints. Presents for further evaluation at this time. CT imaging was done 2 days ago when diagnosed with a UTI. Has been compliant with Macrobid but has only been 3 doses of antibiotics. - Related Data Home Medications Medication Instructions Recorded Confirmed Meclizine [Antivert] 25 mg PO BID PRN 11/26/17 10/11/24 L.acidoph,Paracasei, B.lactis 2 cap PO BID 10/08/18 10/11/24 [Probiotic] Melatonin 5 mg PO HS PRN 10/08/18 10/11/24 Thiamine [Vitamin B-1] 100 mg PO HS 10/08/18 10/11/24 Vitamin B-Complex Drops 1 drop PO BID 10/08/18 10/11/24 C,E,Zinc,Copper 11/Gafbw1g/Lut 1 cap PO DAILY 06/25/20 10/11/24 [Ocuvite Adult 50 Plus Softgel] Brimonidine Tartrate [Alphagan P 1 drop RIGHT EYE BID 11/26/20 10/11/24 0.2% Ophth Soln] Pantoprazole Sodium [Protonix] 40 mg PO BID 11/26/20 10/11/24 Cranberry Fruit Extract [Cranberry] 500 mg PO BID 05/25/22 10/11/24 Multivit-Min/Folic Acid/Ycl165 1 tab PO DAILY 05/25/22 10/11/24 [Alive Premium Adult Multivit] Dhea 50mg With B-12 2500mcg 1 tab PO HS 04/27/23 10/11/24 Folic Acid 800mcg With Folate 1 tab PO HS 04/27/23 10/11/24 1333mg buPROPion XL [Wellbutrin XL] 300 mg PO DAILY 09/20/23 10/11/24 Iron 27mg 27 mg PO DAILY 09/23/23 10/11/24 Turmeric Complex 550mg 550 mg PO HS 09/23/23 10/11/24 ARIPiprazole [Abilify] 10 mg PO HS 03/10/24 10/11/24 Potassium Gluconate 99 mg PO DAILY 03/10/24 10/11/24 Scopolamine [Scopolamine 1 MG/72 1 patch TRANSDERM Q72H PRN 03/10/24 10/11/24 HR patch] Aspirin [Adult Low Dose Aspirin EC] 81 mg PO DAILY 05/06/24 10/11/24 Promethazine [Phenergan] 25 mg PO BID PRN 05/06/24 10/11/24 Cyanocobalamin (Vitamin B-12) 2,500 mcg PO DAILY 07/19/24 10/11/24 [Vitamin B-12] Dorzolamide 2% [Trusopt 2%] 1 drops RIGHT EYE BID 07/19/24 10/11/24 Albuterol Nebulized [Ventolin 2.5 mg INHALATION RT-QID PRN 10/11/24 10/11/24 Nebulized] Hydrocortisone [Cortef] 10 mg PO HS 10/11/24 10/11/24 Hydrocortisone [Cortef] 20 mg PO DAILY 10/11/24 10/11/24 Previous Rx's Medication Instructions Recorded Nystatin 100,000 Unit/gm Powd 1 applic TOPICAL BID 7 Days #1 each 07/26/24 [Mycostatin Powder] Ondansetron [Zofran] 4 mg PO TID PRN #20 tab 07/26/24 amLODIPine [Norvasc] 10 mg PO DAILY #30 tab 07/26/24 busPIRone HCl [Buspar] 10 mg PO BID #0 07/26/24 ALPRAZolam [Xanax] 0.25 mg PO Q6HR PRN #4 tab 10/19/24 Acetaminophen Tab [Tylenol] 500 mg PO Q6HR PRN tab 10/19/24 Apixaban [Eliquis] 2.5 mg PO BID tab 10/19/24 Atorvastatin [Lipitor] 20 mg PO HS tab 10/19/24 Folic Acid 1 mg PO DAILY tab 10/19/24 Furosemide [Lasix] 40 mg PO DAILY #30 tablet 10/19/24 HYDROcodone/APAP 10-325MG [Wells 1 tab PO Q6H PRN #4 tab 10/19/24 10-325] INSULIN LISPRO (HumaLOG) [HumaLOG] 0 unit SQ ACHS each 10/19/24 Insulin Glargine (Lantus) [Lantus 15 unit SQ BID@0700,2100 each 10/19/24 Vial] Lidocaine 4% Patch 1 patch TOPICAL DAILY patch 10/19/24 Mag Hydrox/Al Hydrox/Simeth 30 ml PO Q4HR PRN ml 10/19/24 [Maalox] Metoprolol Tartrate [Lopressor] 50 mg PO BID tab 10/19/24 Nitroglycerin Sl Tabs [Nitrostat] 0.4 mg SUBLINGUAL Q5M PRN tab 10/19/24 Ticagrelor [Brilinta] 90 mg PO BID tab 10/19/24 Cephalexin [Keflex] 500 mg PO Q8HR #21 cap 11/27/24 Ondansetron Odt [Zofran Odt] 4 mg PO Q8HR PRN #10 tab 11/27/24 Nitrofurantoin Monohyd/M-Cryst 100 mg PO Q12HR #10 cap 01/10/25 [Macrobid] Ciprofloxacin HCl [Cipro] 500 mg PO DAILY 5 Days #5 tab 01/12/25 Allergies Allergy/AdvReac Type Severity Reaction Status Date / Time butorphanol tartrate Allergy BLISTERS Verified 01/12/25 12:49 [From Stadol] IN MOUTH ceftriaxone [From Rocephin] Allergy Rash/Hives Verified 01/12/25 12:49 clarithromycin [From Biaxin] Allergy Rash/Hives Verified 01/12/25 12:49 clindamycin Allergy Rash/Hives Verified 01/12/25 12:49 codeine Allergy Rash/Hives Verified 01/12/25 12:49 ergotamine tartrate Allergy Rash/Hives Verified 01/12/25 12:49 [From Cafergot] erythromycin base Allergy RASH, GI Verified 01/12/25 12:49 [From E-Mycin] SYMPTOMS ketorolac tromethamine Allergy Rash/Hives Verified 01/12/25 12:49 [From Toradol] liraglutide [From Victoza] Allergy Rash/Hives Verified 01/12/25 12:49 morphine Allergy Rash/Hives Verified 01/12/25 12:49 Penicillins Allergy Rash/Hives Verified 01/12/25 12:49 on upper body pentazocine lactate Allergy SEVERE Verified 01/12/25 12:49 [From Talwin] BLISTERS IN MOUTH pregabalin [From Lyrica] Allergy Rash/Hives Verified 01/12/25 12:49 propoxyphene HCl Allergy Rash/Hives Verified 01/12/25 12:49 [From Darvon] Sulfa (Sulfonamide Allergy Rash/Hives Verified 01/12/25 12:49 Antibiotics) sulfamethoxazole Allergy Rash/Hives Verified 01/12/25 12:49 [From Bactrim] tizanidine Allergy Unknown Verified 01/12/25 12:49 tramadol Allergy Unknown Verified 01/12/25 12:49 trimethoprim [From Bactrim] Allergy Rash/Hives Verified 01/12/25 12:49 vancomycin Allergy lip Verified 01/12/25 12:49 swelling metoclopramide [From Reglan] AdvReac Hallucinati Verified 01/12/25 12:49 ons monosodium glutamate [MSG] AdvReac Nausea & Verified 01/12/25 12:49 Vomiting nalbuphine HCl [From Nubain] AdvReac Nausea & Verified 01/12/25 12:49 Vomiting Review of Systems ROS Statement: Those systems with pertinent positive or pertinent negative responses have been documented in the HPI. Review of Systems: CONST: Denies fever EYES: Denies blurry vision ENT: Denies nasal congestion C/V: Denies Chest pain RESP: Denies shortness of breath GI: Endorses right flank pain. : Denies dysuria SKIN: Denies rash. MSK: Denies joint pain. NEURO: Denies headache ROS Other: All systems not noted in ROS Statement are negative. Past Medical History Past Medical History: Atrial Fibrillation, Diabetes Mellitus, Deep Vein Thrombosis (DVT), Fibromyalgia, Hyperlipidemia, Hypertension, Osteoarthritis (OA), Pneumonia, Renal Disease, Sleep Apnea/CPAP/BIPAP, Vascular Disorder Additional Past Medical History / Comment(s): Pt recently admitted to [facility] with R flank pain and UTI 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, DVT R calf in 1976, cardiac murmur, occipital neuraligia, balance issues-has narrowing of vessels "in the back of my head", vertigo, varicosities, states rt shoulder torn rotator cuff History of Any Multi-Drug Resistant Organisms: ESBL, MRSA, VRE Date of last positivie culture/infection: 11/25/20 ESBL;12/06/19 VRE; 03/10/11 MRSA MDRO Source:: Urine ESBL; Urine-VRE: MRSA 4th Right TOE Past Surgical History: Appendectomy, Back Surgery, Bladder Surgery, Breast Surgery, Cholecystectomy, Heart Catheterization, Hysterectomy, Orthopedic Surgery, Tonsillectomy Additional Past Surgical History / Comment(s): Lumbar fusions, bladder suspension, occipital nerve blocks, 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, R wrist/elbow nerve repair, bone removed R shoulder, 4th toe R foot partial amputation, bilateral feet/bunionectomies, R knee arthroscopies, R orbit d ecompression with ethmoidectomy and eyelid lift, EGD, colonoscopies, cystocopies, lithotripsy/stents, bilateral breast reduction, bilateral cataract removals, parathyroid surgery - April 2019, pain clinic procedures Past Anesthesia/Blood Transfusion Reactions: No Reported Reaction Additional Past Anesthesia/Blood Transfusion Reaction / Comment(s): never recieved blood Past Psychological History: Depression Smoking Status: Never smoker Past Alcohol Use History: None Reported Past Drug Use History: None Reported - Past Family History Father Family Medical History: Coronary Artery Disease (CAD), CVA/TIA, Diabetes Mellitus, Myocardial Infarction (CA), Pneumonia Additional Family Medical History / Comment(s): Father at the age of 78yrs from CA and pneumonia. Mother Family Medical History: Cancer, Congestive Heart Failure (CHF) Additional Family Medical History / Comment(s): Mother had uterine cancer. She recently at the age of 96yrs old from shingles. General Exam - General Exam Comments Initial Comments: General: Appears in no acute distress. HEAD: Normal with no signs of head trauma. EYES: EOMI ENT: Hearing grossly intact, normal oropharynx. RESPIRATORY: Clear breath sounds bilaterally. No wheezes, rales, or rhonchi. C/V: Regular rate and rhythm. S1 and S2 auscultated, peripheral pulses 2+ and intact throughout ABD: Abdomen soft, nondistended. Mild tenderness to palpation over the right flank but no significant CVA tenderness to percussion on either side. No guarding or rebound tenderness. No peritoneal signs. EXT: No obvious deformity. SKIN: No rashes or lesions observed on exposed skin. NEURO: Alert and oriented x 4. Limitations: no limitations Course Vital Signs 01/12/25 01/12/25 01/12/25 12:47 14:07 15:58 Temperature 97.5 F L 98.0 F Pulse Rate 80 87 84 Respiratory 20 18 18 Rate Blood Pressure 138/83 125/77 136/84 O2 Sat by Pulse 96 100 95 Oximetry 01/12/25 01/12/25 16:45 17:22 Temperature 98.2 F Pulse Rate 85 94 Respiratory 18 18 Rate Blood Pressure 140/74 137/71 O2 Sat by Pulse 98 96 Oximetry Medical Decision Making - Medical Decision Making Was pt. sent in by a medical professional or institution (, PA, HEAD OF PHYSICS, urgent care, hospital, or group home...) When possible be specific @ -No Did you speak to anyone other than the patient for history (EMS, parent, family, police, friend...)? What history was obtained from this source @ -No Did you review nursing and triage notes (agree or disagree)? Why? @ -I reviewed and agree with nursing and triage notes Were old charts reviewed (outside hosp., previous admission, EMS record, old EKG, old radiological studies, urgent care reports/EKG's, group home records)? Report findings @ -Reviewed visit from January 10, 2025. At that time, patient diagnosed with a UTI and patient has CT imaging resulted from that day which showed no obvious acute intra-abdominal process. Patient ultimately discharged home. Differential Diagnosis (chest pain, altered mental status, abdominal pain women, abdominal pain men, vaginal bleeding, weakness, fever, dyspnea, syncope, headache, dizziness, GI bleed, back pain, seizure, CVA, palpatations, mental health, musculoskeletal)? @ -UTI, pyelonephritis, kidney stone. This list is not all-inclusive. EKG interpreted by me (3pts min.). @ -None done X-rays interpreted by me (1pt min.). @ -None done CT interpreted by me (1pt min.). @ -None done U/S interpreted by me (1pt. min.). @ -Bladder and kidney ultrasound negative for any obvious acute process. What testing was considered but not performed or refused? (CT, X-rays, U/S, labs)? Why? @ -None What meds were considered but not given or refused? Why? @ -None Did you discuss the management of the patient with other professionals (professionals i.e. , PA, HEAD OF PHYSICS, lab, RT, psych nurse, social welfare clerk, virtualization engineer, teacher, motor equipment commanding officer, correctional case manager)? Give summary @ -No Was smoking cessation discussed for >3mins.? @ -No Was critical care preformed (if so, how long)? @ -No Were there social determinants of health that impacted care today? How? (Homelessness, low income, unemployed, alcoholism, drug addiction, trans portation, low edu. Level, literacy, decrease access to med. care, assisted, rehab)? @ -No Was there de-escalation of care discussed even if they declined (Discuss DNR or withdrawal of care, Hospice)? DNR status @ -No What co-morbidities impacted this encounter? (DM, HTN, Smoking, COPD, CAD, Cancer, CVA, ARF, Chemo, Hep., AIDS, mental health diagnosis, sleep apnea, morbid obesity)? @ -None Was patient admitted / discharged? Hospital course, mention meds given and route, prescriptions, significant lab abnormalities, going to OR and other pertinent info. @ -Patient presents with worsening right sided pain in the setting of a UTI. Will repeat urinalysis, laboratory studies, ultrasound. Vitals within acceptable limits. Given IV fluids, nausea meds, pain meds. Patient was in agreement this plan. Ultrasound obtained and showed no obvious acute finding. CT from the other day also showed no obvious acute finding. Labs are within acceptable limits. Mild MARIO. Urinalysis is improved from the other day but also contaminated. Urine culture sent with today's urine as well. Culture results not returned on previous days urine. On reevaluation, updated the patient. Will place her on a stronger antibiotic at this time, ciprofloxacin. Instructed her to stop her other antibiotic. Mathieu mmend follow-up with her PCP. No indication for admission at this time. Patient was in agreement this plan. I will provide the patient with a prescription for ciprofloxacin. I instructed the patient to follow up with their PCP in the next 1-3 days.. I explained that the patient should return to the emergency department if they experience any worsening symptoms. Strict return precautions were discussed with the patient. The patient expressed understanding of these instructions. I answered all questions that the patient had. The patient was discharged home in good condition with their prescriptions and follow up information. Undiagnosed new problem with uncertain prognosis? @ -No Drug Therapy requiring intensive monitoring for toxicity (Heparin, Nitro, Insulin, Cardizem)? @ -No Were any procedures done? @ -No Diagnosis/symptom? @ -UTI Acute, or Chronic, or Acute on Chronic? @ -Acute Uncomplicated (without systemic symptoms) or Complicated (systemic symptoms)? @ -Uncomplicated Side effects of treatment? @ -No Exacerbation, Progression, or Severe Exacerbation? @ -No Poses a threat to life or bodily function? How? (Chest pain, USA, CA, pneumonia, PE, COPD, DKA, ARF, appy, cholecystitis, CVA, Diverticulitis, Homicidal, Suicidal, threat to staff... and all critical care pts) @ -Unlikely at this time - Lab Data Result diagrams: 01/12/25 14:26 01/12/25 14:26 Lab Results 01/12/25 01/12/25 01/12/25 Range/Units 14:26 14:26 14:26 WBC 8.80 (4.50-10.00) 10*3/uL RBC 4.13 (4.10-5.20) 10*6/uL Hgb 11.9 L (12.0-15.0) g/dL Hct 36.9 L (37.2-46.3) % MCV 89.3 (80.0-97.0) fL MCH 28.8 (27.0-32.0) pg MCHC 32.2 (32.0-37.0) g/dL Plt Count 244 (140-440) 10*3/uL MPV 10.3 (9.5-12.2) fL Immature Gran % (Auto) 0.5 % Neutrophils % 74.4 % Lymphocytes % 13.2 % Monocytes % 9.0 % Eosinophils % 2.6 % Basophils % 0.3 % Immature Gran # 0.04 (0.00-0.04) 10*3/uL Neutrophils # 6.55 (1.80-7.70) 10*3/uL Lymphocytes # 1.16 (0.90-5.00) 10*3/uL Monocytes # 0.79 (0.20-1.00) 10*3/uL Eosinophils # 0.23 (0.04-0.35) 10*3/uL Basophils # 0.03 (0.00-0.10) 10*3/uL Sodium 140 (137-145) mmol/L Potassium 4.4 (3.5-5.1) mmol/L Chloride 109 H (98-107) mmol/L Carbon Dioxide 19 L (22-30) mmol/L Anion Gap 12 mmol/L BUN 34 H (7-17) mg/dL Creatinine 1.39 H (0.52-1.04) mg/dL Est GFR (CKD-EPI)AfAm 43 (>60 ml/min/1.73 sqM) Est GFR (CKD-EPI)NonAf 37 (>60 ml/min/1.73 sqM) Glucose 101 H (74-99) mg/dL Plasma Lactic Acid Sudhir 1.1 (0.7-2.0) mmol/L Calcium 9.5 (8.4-10.2) mg/dL Total Bilirubin 0.3 (0.2-1.3) mg/dL AST 17 (14-36) U/L ALT 13 (4-34) U/L Alkaline Phosphatase 76 (38-126) U/L Total Protein 6.4 (6.3-8.2) g/dL Albumin 4.3 (3.5-5.0) g/dL Urine Color Urine Appearance (Clear) Urine pH (5.0-8.0) Ur Specific [place] (1.001-1.035) Urine Protein (Negative) Urine Glucose (UA) (Negative) Urine Ketones (Negative) Urine Blood (Negative) Urine Nitrite (Negative) Urine Bilirubin (Negative) Urine Urobilinogen (<2.0) mg/dL Ur Leukocyte Esterase (Negative) Urine RBC (0-5) /hpf Urine WBC (0-5) /hpf Ur Squamous Epith Cells (0-4) /hpf Urine Mucus (None) /hpf 01/12/25 Range/Units 14:44 WBC (4.50-10.00) 10*3/uL RBC (4.10-5.20) 10*6/uL Hgb (12.0-15.0) g/dL Hct (37.2-46.3) % MCV (80.0-97.0) fL MCH (27.0-32.0) pg MCHC (32.0-37.0) g/dL Plt Count (140-440) 10*3/uL MPV (9.5-12.2) fL Immature Gran % (Auto) % Neutrophils % % Lymphocytes % % Monocytes % % Eosinophils % % Basophils % % Immature Gran # (0.00-0.04) 10*3/uL Neutrophils # (1.80-7.70) 10*3/uL Lymphocytes # (0.90-5.00) 10*3/uL Monocytes # (0.20-1.00) 10*3/uL Eosinophils # (0.04-0.35) 10*3/uL Basophils # (0.00-0.10) 10*3/uL Sodium (137-145) mmol/L Potassium (3.5-5.1) mmol/L Chloride (98-107) mmol/L Carbon Dioxide (22-30) mmol/L Anion Gap mmol/L BUN (7-17) mg/dL Creatinine (0.52-1.04) mg/dL Est GFR (CKD-EPI)AfAm (>60 ml/min/1.73 sqM) Est GFR (CKD-EPI)NonAf (>60 ml/min/1.73 sqM) Glucose (74-99) mg/dL Plasma Lactic Acid Sudhir (0.7-2.0) mmol/L Calcium (8.4-10.2) mg/dL Total Bilirubin (0.2-1.3) mg/dL AST (14-36) U/L ALT (4-34) U/L Alkaline Phosphatase (38-126) U/L Total Protein (6.3-8.2) g/dL Albumin (3.5-5.0) g/dL Urine Color Colorless Urine Appearance Clear (Clear) Urine pH 5.5 (5.0-8.0) Ur Specific [place] 1.015 (1.001-1.035) Urine Protein Negative (Negative) Urine Glucose (UA) Negative (Negative) Urine Ketones Negative (Negative) Urine Blood Small H (Negative) Urine Nitrite Negative (Negative) Urine Bilirubin Negative (Negative) Urine Urobilinogen <2.0 (<2.0) mg/dL Ur Leukocyte Esterase Small H (Negative) Urine RBC 6 H (0-5) /hpf Urine WBC 7 H (0-5) /hpf Ur Squamous Epith Cells 1 (0-4) /hpf Urine Mucus Rare H (None) /hpf Disposition Clinical Impression: UTI (urinary tract infection) Disposition: HOME SELF-CARE Condition: Good Instructions (If sedation given, give patient instructions): Urinary Tract Infection in Women (ED) Additional Instructions: Stop taking your Macrobid and start ciprofloxacin tomorrow due to dose here in the ER today. Will call you if urine culture results are abnormal. Return to the ER if any worsening symptoms. Follow-up with your PCP. Prescriptions: Ciprofloxacin HCl [Cipro] 500 mg PO DAILY 5 Days #5 tab Is patient prescribed a controlled substance at d/c from ED?: No Referrals: Andrew Gonsales MD [Primary Care Provider] - 1-2 days Time of Disposition: 16:30
[2025-01-12] MEDS: CIPROFLOXACIN HCL 500 MG TAB PO STA (16:47)
[2025-01-12 17:23] VITALS: BP 137/71; PULSE 94; TEMP 98.2
== END 2025-01-12 17:26 | disposition home or self-care (01) ==
LOC: EC 12:32
DX: N39.0 Urinary tract infection, site not specified (principal); Z88.5 Allergy status to narcotic agent; Z88.6 Allergy status to analgesic agent; Z88.0 Allergy status to penicillin; Z88.2 Allergy status to sulfonamides; Z88.1 Allergy status to other antibiotic agents; Z88.8 Allergy status to other drugs, medicaments and biological substances
CPT/HCPCS: 36415; 80053; 83605; 85025; 81001; 76770; 99284; 96374; 96375; 96376; 96361; J2405; J1171

== ENCOUNTER 2025-01-14 08:04 | Emergency (ER) | payer BC, MEDICARE ==
[2025-01-14 08:14] VITALS: TEMP 98
--- NOTE | 2025-01-14 08:33 | ED ---
General Adult HPI - General Chief complaint: Urogenital Stated complaint: UTI Time Seen by Provider: 01/14/25 08:09 Source: patient, EMS, RN notes reviewed Mode of arrival: EMS Limitations: no limitations - History of Present Illness Initial comments: 74-year-old female presents emergency department chief complaint of urinary tract infection. Patient states that she received a phone call stating that she had MRSA but she did not understand the message and felt that she needed to be evaluated. She denies any fevers or chills show admits to nausea and chronic pain. Denies any flank pain no significant abdominal pain she does have urinary frequency and dysuria. - Related Data Home Medications Medication Instructions Recorded Confirmed Meclizine [Antivert] 25 mg PO BID PRN 11/26/17 10/11/24 L.acidoph,Paracasei, B.lactis 2 cap PO BID 10/08/18 10/11/24 [Probiotic] Melatonin 5 mg PO HS PRN 10/08/18 10/11/24 Thiamine [Vitamin B-1] 100 mg PO HS 10/08/18 10/11/24 Vitamin B-Complex Drops 1 drop PO BID 10/08/18 10/11/24 C,E,Zinc,Copper 11/Xihze5q/Lut 1 cap PO DAILY 06/25/20 10/11/24 [Ocuvite Adult 50 Plus Softgel] Brimonidine Tartrate [Alphagan P 1 drop RIGHT EYE BID 11/26/20 10/11/24 0.2% Ophth Soln] Pantoprazole Sodium [Protonix] 40 mg PO BID 11/26/20 10/11/24 Cranberry Fruit Extract [Cranberry] 500 mg PO BID 05/25/22 10/11/24 Multivit-Min/Folic Acid/Odg173 1 tab PO DAILY 05/25/22 10/11/24 [Alive Premium Adult Multivit] Dhea 50mg With B-12 2500mcg 1 tab PO HS 04/27/23 10/11/24 Folic Acid 800mcg With Folate 1 tab PO HS 04/27/23 10/11/24 1333mg buPROPion XL [Wellbutrin XL] 300 mg PO DAILY 09/20/23 10/11/24 Iron 27mg 27 mg PO DAILY 09/23/23 10/11/24 Turmeric Complex 550mg 550 mg PO HS 09/23/23 10/11/24 ARIPiprazole [Abilify] 10 mg PO HS 03/10/24 10/11/24 Potassium Gluconate 99 mg PO DAILY 03/10/24 10/11/24 Scopolamine [Scopolamine 1 MG/72 1 patch TRANSDERM Q72H PRN 03/10/24 10/11/24 HR patch] Aspirin [Adult Low Dose Aspirin EC] 81 mg PO DAILY 05/06/24 10/11/24 Promethazine [Phenergan] 25 mg PO BID PRN 05/06/24 10/11/24 Cyanocobalamin (Vitamin B-12) 2,500 mcg PO DAILY 07/19/24 10/11/24 [Vitamin B-12] Dorzolamide 2% [Trusopt 2%] 1 drops RIGHT EYE BID 07/19/24 10/11/24 Albuterol Nebulized [Ventolin 2.5 mg INHALATION RT-QID PRN 10/11/24 10/11/24 Nebulized] Hydrocortisone [Cortef] 10 mg PO HS 10/11/24 10/11/24 Hydrocortisone [Cortef] 20 mg PO DAILY 10/11/24 10/11/24 Previous Rx's Medication Instructions Recorded Nystatin 100,000 Unit/gm Powd 1 applic TOPICAL BID 7 Days #1 each 07/26/24 [Mycostatin Powder] Ondansetron [Zofran] 4 mg PO TID PRN #20 tab 07/26/24 amLODIPine [Norvasc] 10 mg PO DAILY #30 tab 07/26/24 busPIRone HCl [Buspar] 10 mg PO BID #0 07/26/24 ALPRAZolam [Xanax] 0.25 mg PO Q6HR PRN #4 tab 10/19/24 Acetaminophen Tab [Tylenol] 500 mg PO Q6HR PRN tab 10/19/24 Apixaban [Eliquis] 2.5 mg PO BID tab 10/19/24 Atorvastatin [Lipitor] 20 mg PO HS tab 10/19/24 Folic Acid 1 mg PO DAILY tab 10/19/24 Furosemide [Lasix] 40 mg PO DAILY #30 tablet 10/19/24 HYDROcodone/APAP 10-325MG [[place] 1 tab PO Q6H PRN #4 tab 10/19/24 10-325] INSULIN LISPRO (HumaLOG) [HumaLOG] 0 unit SQ ACHS each 10/19/24 Insulin Glargine (Lantus) [Lantus 15 unit SQ BID@0700,2100 each 10/19/24 Vial] Lidocaine 4% Patch 1 patch TOPICAL DAILY patch 10/19/24 Mag Hydrox/Al Hydrox/Simeth 30 ml PO Q4HR PRN ml 10/19/24 [Maalox] Metoprolol Tartrate [Lopressor] 50 mg PO BID tab 10/19/24 Nitroglycerin Sl Tabs [Nitrostat] 0.4 mg SUBLINGUAL Q5M PRN tab 10/19/24 Ticagrelor [Brilinta] 90 mg PO BID tab 10/19/24 Cephalexin [Keflex] 500 mg PO Q8HR #21 cap 11/27/24 Ondansetron Odt [Zofran Odt] 4 mg PO Q8HR PRN #10 tab 11/27/24 Nitrofurantoin Monohyd/M-Cryst 100 mg PO Q12HR #10 cap 01/10/25 [Macrobid] Ciprofloxacin HCl [Cipro] 500 mg PO DAILY 5 Days #5 tab 01/12/25 Nitrofurantoin Monohyd/M-Cryst 100 mg PO Q12HR #14 cap 01/14/25 [Macrobid] Allergies Allergy/AdvReac Type Severity Reaction Status Date / Time butorphanol [From Stadol] Allergy Unknown Verified 01/14/25 08:19 butorphanol tartrate Allergy BLISTERS Verified 01/12/25 12:49 [From Stadol] IN MOUTH caffeine [From Cafergot] Allergy Unknown Verified 01/14/25 08:19 ceftriaxone [From Rocephin] Allergy Rash/Hives Verified 01/12/25 12:49 clarithromycin [From Biaxin] Allergy Rash/Hives Verified 01/12/25 12:49 clindamycin Allergy Rash/Hives Verified 01/12/25 12:49 codeine Allergy Rash/Hives Verified 01/12/25 12:49 ergotamine [From Cafergot] Allergy Unknown Verified 01/14/25 08:19 ergotamine tartrate Allergy Rash/Hives Verified 01/12/25 12:49 [From Cafergot] erythromycin base Allergy RASH, GI Verified 01/12/25 12:49 [From E-Mycin] SYMPTOMS ketorolac [From Toradol] Allergy Unknown Verified 01/14/25 08:19 ketorolac tromethamine Allergy Rash/Hives Verified 01/12/25 12:49 [From Toradol] liraglutide [From Victoza] Allergy Rash/Hives Verified 01/12/25 12:49 morphine Allergy Rash/Hives Verified 01/12/25 12:49 Penicillins Allergy Rash/Hives Verified 01/12/25 12:49 on upper body pentazocine [From Talwin] Allergy Unknown Verified 01/14/25 08:19 pentazocine lactate Allergy SEVERE Verified 01/12/25 12:49 [From Talwin] BLISTERS IN MOUTH pregabalin [From Lyrica] Allergy Rash/Hives Verified 01/12/25 12:49 propoxyphene [From Darvon] Allergy Unknown Verified 01/14/25 08:19 propoxyphene HCl Allergy Rash/Hives Verified 01/12/25 12:49 [From Darvon] Sulfa (Sulfonamide Allergy Rash/Hives Verified 01/12/25 12:49 Antibiotics) sulfamethoxazole Allergy Rash/Hives Verified 01/12/25 12:49 [From Bactrim] tizanidine Allergy Unknown Verified 01/12/25 12:49 tramadol Allergy Unknown Verified 01/12/25 12:49 trimethoprim [From Bactrim] Allergy Rash/Hives Verified 01/12/25 12:49 vancomycin Allergy lip Verified 01/12/25 12:49 swelling metoclopramide [From Reglan] AdvReac Hallucinati Verified 01/12/25 12:49 ons monosodium glutamate [MSG] AdvReac Nausea & Verified 01/12/25 12:49 Vomiting nalbuphine HCl [From Nubain] AdvReac Nausea & Verified 01/12/25 12:49 Vomiting Review of Systems ROS Statement: Those systems with pertinent positive or pertinent negative responses have been documented in the HPI. ROS Other: All systems not noted in ROS Statement are negative. Past Medical History Past Medical History: Atrial Fibrillation, Diabetes Mellitus, Deep Vein Throm bosis (DVT), Fibromyalgia, Hyperlipidemia, Hypertension, Osteoarthritis (OA), Pneumonia, Renal Disease, Sleep Apnea/CPAP/BIPAP, Vascular Disorder Additional Past Medical History / Comment(s): Pt recently admitted to [facility] with R flank pain and UTI 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, neuropathy biltateral feet, chronic bronchitis, ELIZABET with Cpap, UTIs, UTI with sepsis, pyelonephritis/sepsis, nephrolithiasis and has had renal failure d/t blockages, adrenal insufficiency (camron's disease), hyperparathyroidism-with surgery, arthritis in multiple joints, DJD, past bilateral pelvic fractures, 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, DVT R calf in 1976, cardiac murmur, occipital neuraligia, balance issues-has narrowing of vessels "in the back of my head", vertigo, vari cosities, states rt shoulder torn rotator cuff History of Any Multi-Drug Resistant Organisms: MRSA Date of last positivie culture/infection: 11/25/20 ESBL;12/06/19 VRE; 03/10/11 MRSA; 01/14/25 MDRO Source:: Urine ESBL; Urine-VRE: MRSA 4th Right TOE Past Surgical History: Appendectomy, Back Surgery, Bladder Surgery, Breast Surgery, Cholecystectomy, Heart Catheterization, Hysterectomy, Orthopedic Surgery, Tonsillectomy Additional Past Surgical History / Comment(s): Lumbar fusions, bladder suspension, occipital nerve blocks, 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, R wrist/elbow nerve repair, bone removed R shoulder, 4th toe R foot partial amputation, bilateral feet/bunionectomies, R knee arthroscopies, R orbit decompression with ethmoidectomy and eyelid lift, EGD, colonoscopies, cystocopies, lithotripsy/stents, bilateral breast reduction, bilateral cataract removals, parathyroid surgery - April 2019, pain clinic procedures Past Anesthesia/Blood Transfusion Reactions: No Reported Reaction Additional Past Anesthesia/Blood Transfusion Reaction / Comment(s): never recieved blood Past Psychological History: Depression Smoking Status: Never smoker Past Alcohol Use History: None Reported Past Drug Use History: None Reported - Past Family History Father Family Medical History: Coronary Artery Disease (CAD), CVA/TIA, Diabetes Mellitus, Myocardial Infarction (NE), Pneumonia Additional Family Medical History / Comment(s): Father at the age of 78yrs from NE and pneumonia. Mother Family Medical History: Cancer, Congestive Heart Failure (CHF) Additional Family Medical History / Comment(s): Mother had uterine cancer. She recently at the age of 96yrs old from shingles. General Exam Limitations: no limitations General appearance: alert, in no apparent distress Head exam: Present: atraumatic, normocephalic, normal inspection Eye exam: Present: normal appearance, PERRL, EOMI. Absent: scleral icterus, conjunctival injection, periorbital swelling ENT exam: Present: normal exam, mucous membranes moist Neck exam: Present: normal inspection, full ROM. Absent: tenderness, meningismus, lymphadenopathy Respiratory exam: Present: normal lung sounds bilaterally. Absent: respiratory distress, wheezes, rales, rhonchi, stridor Cardiovascular Exam: Present: regular rate, normal rhythm, normal heart sounds. Absent: systolic murmur, diastolic murmur, rubs, gallop, clicks GI/Abdominal exam: Present: soft, normal bowel sounds. Absent: distended, tenderness, guarding, rebound, rigid Back exam: Absent: CVA tenderness (R), CVA tenderness (L) Course Vital Signs 01/14/25 01/14/25 08:06 09:04 Temperature 98.0 F Pulse Rate 62 63 Respiratory 18 16 Rate Blood Pressure 125/63 145/73 O2 Sat by Pulse 95 93 L Oximetry Medical Decision Making - Medical Decision Making Was pt. sent in by a medical professional or institution (, PA, ESL INSTRUCTOR, urgent care, hospital, or correction...) When possible be specific @ -No Did you speak to anyone other than the patient for history (EMS, parent, family, police, friend...)? What history was obtained from this source @ -No Did you review nursing and triage notes (agree or disagree)? Why? @ -I reviewed and agree with nursing and triage notes Were old charts reviewed (outside hosp., previous admission, EMS record, old EKG, old radiological studies, urgent care reports/EKG's, correction records)? Report findings @ -Reviewed urine culture from 01/10 Differential Diagnosis (chest pain, altered mental status, abdominal pain women, abdominal pain men, vaginal bleeding, weakness, fever, dyspnea, syncope, headache, dizziness, GI bleed, back pain, seizure, CVA, palpatations, mental health, musculoskeletal)? @ -Differential Abdominal Pain Women: Appendicitis, Cholecystitis, diverticulosis, ischemic bowel, pancreatitis, hepatitis, UTI, gastroenteritis, AAA, incarcerated hernia, bowel obstruction, constipation, inflammatory bowel, hepatitis, peptic ulcer disease, splenic infarction, perforated viscus, vulvitis, ovarian torsion, PID, kidney stone, placenta abruption, this is not meant to be an all-inclusive list EKG interpreted by me (3pts min.). @ - none X-rays interpreted by me (1pt min.). @ -None done CT interpreted by me (1pt min.). @ -None done U/S interpreted by me (1pt. min.). @ -None done What testing was considered but not performed or refused? (CT, X-rays, U/S, labs)? Why? @ -None What meds were considered but not given or refused? Why? @ -None Did you discuss the management of the patient with other professionals (professionals i.e. , PA, ESL INSTRUCTOR, lab, RT, psych nurse, social media executive, administrative accountant, teacher, homicide squad commanding officer, bilingual patient support caseworker)? Give summary @ -No Was smoking cessation discussed for >3mins.? @ -No Was critical care preformed (if so, how long)? @ -No Were there social determinants of health that impacted care today? How? (Homelessness, low income, unemployed, alcoholism, drug addiction, transportation, low edu. Level, literacy, decrease access to med. care, group home, rehab)? @ -No Was there de-escalation of care discussed even if they declined (Discuss DNR or withdrawal of care, Hospice)? DNR status @ -No What co-morbidities impacted this encounter? (DM, HTN, Smoking, COPD, CAD, Cancer, CVA, ARF, Chemo, Hep., AIDS, mental health diagnosis, sleep apnea, morbid obesity)? @ -None Was patient admitted / discharged? Hospital course, mention meds given and route, prescriptions, significant lab abnormalities, going to OR and other pertinent info. @ -Discharge patient was instructed that she needed to be on Macrobid as stated on her voicemail when updated on urine culture results. Patient will continue that she is afebrile with normal vitals otherwise. Patient discharged in stable condition Undiagnosed new problem with uncertain prognosis? @ -No Drug Therapy requiring intensive monitoring for toxicity (Heparin, Nitro, Insulin, Cardizem)? @ -No Were any procedures done? @ -No Diagnosis/symptom? @ -UTI Acute, or Chronic, or Acute on Chronic? @ -Acute Uncomplicated (without systemic symptoms) or Complicated (systemic symptoms)? @ -Uncomplicated Side effects of treatment? @ -No Exacerbation, Progression, or Severe Exacerbation? @ -No Poses a threat to life or bodily function? How? (Chest pain, [place], NE, pneumonia, PE, COPD, DKA, ARF, appy, cholecystitis, CVA, Diverticulitis, Homicidal, Suicidal, threat to staff... and all critical care pts) @ -No Disposition Clinical Impression: UTI (urinary tract infection) Disposition: HOME SELF-CARE Condition: Stable Instructions (If sedation given, give patient instructions): Urinary Tract Infection in Women (ED) Additional Instructions: Please return to the Emergency Department if symptoms worsen or any other concerns. Prescriptions: Nitrofurantoin Monohyd/M-Cryst [Macrobid] 100 mg PO Q12HR #14 cap Is patient prescribed a controlled substance at d/c from ED?: No Referrals: Andrew Gonsales MD [Primary Care Provider] - 1-2 days Time of Disposition: 08:32
[2025-01-14] MEDS: droPERidol 2.5 MG/ML VIAL IVP ONE (08:43)
[2025-01-14] MEDS: NITROFURANTOIN MONOHYD/M-CRYST 100 MG CAP PO STA (08:44)
[2025-01-14] MEDS: HYDROcodone/APAP 10-325MG 1 EACH TAB PO ONE (08:44)
[2025-01-14 09:06] VITALS: BP 145/73; PULSE 63; RESP 16
== END 2025-01-14 09:16 | disposition home or self-care (01) ==
LOC: EC 08:04
DX: N39.0 Urinary tract infection, site not specified (principal); Z88.0 Allergy status to penicillin; Z88.5 Allergy status to narcotic agent; Z88.8 Allergy status to other drugs, medicaments and biological substances; Z88.6 Allergy status to analgesic agent; Z88.1 Allergy status to other antibiotic agents; Z88.2 Allergy status to sulfonamides
CPT/HCPCS: 99284; 96374; J1790